=== PATIENT | female | born 1965 | race Caucasian/White ===

== ENCOUNTER 2018-07-03 23:22 | Emergency (ER) | payer SELFPAY ==
[2018-07-03] MEDS ORDERED: Sodium Chloride 0.9% 1,000 ML IV ONE (23:54)
[2018-07-04 00:15] LABS: BASO # 0.1 K/uL (0.0-0.2); BASO % 1.1 % (0.0-2.0); EOS # 1.1 K/uL (0.0-0.7); EOS % 17.8 % (0.0-4.0); HEMOGLOBIN 13.2 g/dL (11.0-16.0); LYMPH # 2.3 K/uL (1.0-4.3); LYMPH % 38.3 % (20.0-40.0); MEAN CORPUSCULAR HEMOGLOBIN 30.2 pg (27.0-31.0); MEAN CORPUSCULAR HGB CONC 34.7 g/dL (33.0-37.0); MEAN PLATELET VOLUME 8.6 fL (7.2-11.7); MONO # 0.5 K/uL (0.0-0.8); MONO % 7.8 % (0.0-10.0); NEUT # 2.1 K/uL (1.8-7.0); NRBC % 0.1 % (0.0-2.0); RBC 4.35 Mil/uL (3.80-5.20); RED CELL DISTRIBUTION WIDTH 15.1 % (11.5-14.5)
[2018-07-04 00:22] LABS: ALB/GLOB RATIO 1.1 (1.0-2.1); ALBUMIN 4.2 g/dL (3.5-5.0); CALCIUM 9.8 mg/dl (8.6-10.4)
[2018-07-04 00:34] LABS: TROPONIN I 0.025 ng/mL (0.00-0.120)
[2018-07-04 01:05] LABS: SQUAMOUS EPITHIAL 2 /hpf (0-5); URINE BACTERIA RARE (<OCC); URINE BILIRUBIN NEGATIVE (NEGATIVE); URINE CLARITY Hazy (Clear); URINE COLOR Yellow (YELLOW); URINE GLUCOSE (UA) 1+ mg/dL (Normal); URINE LEUKOCYTE ESTERASE 3+ Leu/uL (Negative); URINE PROTEIN 1+ mg/dL (NEGATIVE); URINE UROBILINOGEN NORMAL mg/dL (0.2-1.0)
[2018-07-04 01:11] LABS: URINE BLOOD 1+ (NEGATIVE)
[2018-07-04] MEDS ORDERED: Tmp-Smz 800 mg-160 mg DS Tab PO STA (01:52)
[2018-07-04] MEDS ORDERED: Tmp-Smz 800 mg-160 mg DS Tab ONE (02:01)
[2018-07-04 02:08] VITALS: BP 147/81; PULSE 84; RESP 18; TEMP 97.8; O2SAT 99
--- NOTE | 2018-07-04 05:06 | C.PDOC ---
History Of Present Illness 52 y/o female presents to the ED complaining of generalized weakness and a mild cough, for the past 1 week. States she also vomited a couple of times. Denies any fever, chest pain, SOB, dizziness, or visual changes. Patient has PMHx of diabetes mellitus, takes PO medications. Time Seen by Provider: 07/03/18 23:50 Chief Complaint (Nursing): GI Problem History Per: Patient History/Exam Limitations: no limitations Onset/Duration Of Symptoms: Days (x7) Current Symptoms Are (Timing): Still Present Past Medical History Reviewed: Historical Data, Nursing Documentation, Vital Signs Vital Signs: Last Vital Signs Temp 97.8 F 07/04/18 02:05 Pulse 84 07/04/18 02:05 Resp 18 07/04/18 02:05 BP 147/81 07/04/18 02:05 Pulse Ox 99 07/04/18 02:05 Family History: States: No Known Family Hx - Social History Hx Alcohol Use: No Hx Substance Use: No Review Of Systems Except As Marked, All Systems Reviewed And Found Negative. Constitutional: Positive for: Weakness (generalized). Negative for: Fever Eyes: Negative for: Vision Change Cardiovascular: Negative for: Chest Pain Respiratory: Positive for: Cough. Negative for: Shortness of Breath Gastrointestinal: Negative for: Nausea, Vomiting, Diarrhea Neurological: Negative for: Dizziness Physical Exam - Physical Exam Appears: Non-toxic, No Acute Distress, Other (Thin) Skin: Normal Color, Warm, Dry Head: Atraumatic, Normacephalic Eye(s): bilateral: Normal Inspection, PERRL, EOMI Neck: Normal ROM, Supple Chest: Symmetrical Cardiovascular: Rhythm Regular, No Murmur Respiratory: Normal Breath Sounds, No Rales, No Rhonchi, No Wheezing Gastrointestinal/Abdominal: Soft, No Tenderness, No Distention Extremity: Normal ROM, No Calf Tenderness, No Swelling Neurological/Psych: Oriented x3, Normal Speech ED Course And Treatment - Laboratory Results Result Diagrams: 07/04/18 00:05 07/04/18 00:05 ECG: Interpreted By Me, Viewed By Me ECG Rhythm: Sinus Rhythm Interpretation Of ECst degree AV block, Left axis deviation Rate From EC (bpm) O2 Sat by Pulse Oximetry: 99 (RA) Pulse Ox Interpretation: Normal Medical Decision Making Medical Decision Making: Impression: Cough, generalized weakness Initial Plan: --EKG --Labs --Chest x-ray --IV fluids --Pepcid 20 mg IVP --Zofran 4 mg IVP --Reassess Labs reviewed, urine indicative of UTI. On re-evaluation patient reports improvement in symptoms after fluids and meds given. Patient given initial dose of Bactrim in the ED. Will discharge home on antibiotics, advised patient to follow up with the clinic for further evaluation. Disposition Counseled Patient/Family Regarding: Studies Performed, Diagnosis, Need For Followup, Rx Given - Disposition Referrals: [facility] [Outside] [facility] [Outside] Disposition: HOME/ ROUTINE Disposition Time: 01:10 Condition: GOOD Additional Instructions: DUGLAS WALL, thank you for letting us take care of you today. The emergency medical care you received today was directed at your acute symptoms. If you were prescribed any medication, please fill it and take as directed. It may take several days for your symptoms to resolve. Return to the Emergency Department if your symptoms worsen, do not improve, or if you have any other problems. Please contact your doctor or call one of the physicians/clinics you have been referred to that are listed on the Patient Visit Information form that is included in your discharge packet. Bring any paperwork you were given at discharge with you along with any medications you are taking to your follow up visit. Our treatment cannot replace ongoing medical care by a primary care provider outside of the emergency department. Thank you for allowing the [facility] team to be part of your care today. Follow up with the clinic this week for re-evaluation and further management. Prescriptions: Ibuprofen [Motrin] 600 mg PO Q6 PRN #20 tab PRN Reason: Pain, Moderate (4-7) Sulfamethoxazole/Trimethoprim [Bactrim DS 800 mg-160 mg] 1 tab PO BID #10 tab Instructions: Urinary Tract Infection, Adult (DC) Forms: [employer] (Syriac) - POA Present On Arrival: None - Clinical Impression Clinical Impression: UTI (urinary tract infection) - Scribe Statement The provider has reviewed the documentation as recorded by the Scribe (Shayla Mcnair) Provider Attestation: All medical record entries made by the Scribe were at my direction and personally dictated by me. I have reviewed the chart and agree that the record accurately reflects my personal performance of the history, physical exam, m edical decision making, and the department course for this patient. I have also personally directed, reviewed, and agree with the discharge instructions and disposition.
--- NOTE | 2018-07-04 08:53 | RAD ---
Chest x-ray single frontal view HISTORY: Infiltrate. COMPARISON: None available. Findings: No focal infiltrate or effusion. Mild venous congestion. Right hilar prominence. Heart size within limits. Degenerative changes in the osseous structures. Impression: No focal infiltrate or effusion. Mild venous congestion. Right hilar prominence. Heart size within limits. Degenerative changes in the osseous structures.
--- NOTE | 2018-07-05 13:28 | CARD ---
APPROVED REPORT Date of service: 07/04/2018 EKG Measurement Heart [id number] <Conclusion> Sinus rhythm with 1st degree AV block Left axis deviation Left ventricular hypertrophy with repolarization abnormality Prolonged QT Abnormal ECG
== END 2018-07-04 02:09 | disposition home or self-care (01) ==
LOC: EDBD → C.ER 23:22
DX: N39.0 Urinary tract infection, site not specified (principal)
CPT/HCPCS: 71045; 80053; 81001; 82948; 83690; 84484; 85025; 93005; 96374; 96375; 99285; J2405; J7030

== ENCOUNTER 2018-07-07 13:10 | Inpatient (IN) | payer MEDICAID, OTHER ==
[2018-07-07] MEDS ORDERED: (Novolin R) Insulin Human Regular 100 units/ml vial IVP STA (14:22)
[2018-07-07] MEDS ORDERED: Sodium Chloride 0.9% 1,000 ML IV ONE ×3 (14:22→15:53)
[2018-07-07] MEDS ORDERED: Albuterol-Ipratrop 3 mg / 0.5 (3 ml) UD INH STA ×2 (14:23→15:54)
[2018-07-07] MEDS ORDERED: Albuterol-Ipratrop 3 mg / 0.5 (3 ml) UD ONE ×2 (14:34→16:13)
--- NOTE | 2018-07-07 14:37 | RAD ---
Date of service: 07/07/2018 PROCEDURE: CHEST RADIOGRAPH, 1 VIEW HISTORY: Diabetic, cough COMPARISON: None available. FINDINGS: LUNGS: The lungs are well inflated and clear. PLEURA: No pneumothorax or pleural fluid seen. CARDIOVASCULAR: Normal. OSSEOUS STRUCTURES: No significant abnormalities. VISUALIZED UPPER ABDOMEN: Normal. OTHER FINDINGS: None. IMPRESSION: No active pulmonary disease.
[2018-07-07 14:44] LABS: BASO % 0.8 % (0.0-2.0); EOS # 1.1 K/uL (0.0-0.7); EOS % 20.4 % (0.0-4.0); HEMOGLOBIN 11.6 g/dL (11.0-16.0); LYMPH # 0.9 K/uL (1.0-4.3); LYMPH % 17.1 % (20.0-40.0); MEAN CELL VOLUME 87.8 fL (81.0-99.0); MEAN CORPUSCULAR HEMOGLOBIN 29.6 pg (27.0-31.0); MEAN CORPUSCULAR HGB CONC 33.7 g/dL (33.0-37.0); MEAN PLATELET VOLUME 8.7 fL (7.2-11.7); MONO # 0.6 K/uL (0.0-0.8); MONO % 11.2 % (0.0-10.0); NEUT # 2.7 K/uL (1.8-7.0); NEUT % 50.5 % (50.0-75.0); NRBC % 0.1 % (0.0-2.0); PLATELET COUNT 197 K/uL (130-400); RED CELL DISTRIBUTION WIDTH 15.2 % (11.5-14.5); WHITE BLOOD COUNT 5.3 K/uL (4.8-10.8)
[2018-07-07 14:59] LABS: HCG,QUALITATIVE URINE NEGATIVE (NEGATIVE)
[2018-07-07 15:02] LABS: SQUAMOUS EPITHIAL 11 /hpf (0-5); URINE BACTERIA RARE (<OCC); URINE BILIRUBIN NEGATIVE (NEGATIVE); URINE BLOOD 2+ (NEGATIVE); URINE CLARITY Hazy (Clear); URINE COLOR Yellow (YELLOW); URINE GLUCOSE (UA) 1+ mg/dL (Normal); URINE HYALINE CAST >20 /lpf (0-2); URINE LEUKOCYTE ESTERASE 3+ Leu/uL (Negative); URINE PROTEIN 2+ mg/dL (NEGATIVE); URINE UROBILINOGEN NORMAL mg/dL (0.2-1.0); WBC CLUMPS MOD /hpf
[2018-07-07] MEDS ORDERED: cefTRIAXone IV 1 gm in Dextros 50 ML IV ONE (15:06)
[2018-07-07 15:11] LABS: ANISOCYTOSIS SLIGHT; EOSINOPHIL 11 % (0-4); HYPOCHROMIC SLIGHT; LYMPHOCYTE 26 % (20-40); MONOCYTE 4 % (0-10); NEUTROPHIL 59 % (50-75); OVALOCYTES SLIGHT; PLATELET ESTIMATE NORMAL (NORMAL); POLYCHROMIC SLIGHT; TOTAL CELLS COUNTED 100
[2018-07-07 15:16] LABS: ALB/GLOB RATIO 1.1 (1.0-2.1); ALBUMIN 3.7 g/dL (3.5-5.0); CALCIUM 9.2 mg/dl (8.6-10.4)
[2018-07-07] MEDS ORDERED: cefTRIAXone 1 gm 1 GM/100 ML BAG IVPB ONE (15:22)
--- NOTE | 2018-07-07 15:52 | C.PDOC ---
History Of Present Illness 52 y/o female presents to ED c/o persistent non-productive cough. Pt also complains of not being able to tolerate any PO intake, reports multiple episode of vomiting. Pt was seen here 4 days ago for similar symptoms without improveme nt. Denies fever, diarrhea, or other complaints. Time Seen by Provider: 07/07/18 14:11 Chief Complaint (Nursing): GI Problem History Per: Patient History/Exam Limitations: no limitations Past Medical History Reviewed: Historical Data, Nursing Documentation, Vital Signs Vital Signs: Last Vital Signs Temp 98 F 07/07/18 15:45 Pulse 100 H 07/07/18 15:45 Resp 18 07/07/18 15:45 BP 108/52 L 07/07/18 15:45 Pulse Ox 98 07/07/18 15:45 - Medical History PMH: Hypercholesterolemia Family History: States: Unknown Family Hx - Social History Hx Alcohol Use: No Hx Substance Use: No Review Of Systems Except As Marked, All Systems Reviewed And Found Negative. Constitutional: Negative for: Fever, Chills Cardiovascular: Negative for: Chest Pain Respiratory: Positive for: Cough. Negative for: Shortness of Breath Gastrointestinal: Positive for: Nausea, Vomiting. Negative for: Abdominal Pain, Diarrhea Genitourinary: Negative for: Dysuria, Frequency Musculoskeletal: Negative for: Back Pain Physical Exam - Physical Exam Appears: Non-toxic, Chronically Ill, Other (appears older than stated age; in moderate distress) Skin: Warm, Dry, Other (skin tenting) Head: Atraumatic, Normacephalic Eye(s): bilateral: Normal Inspection Oral Mucosa: Dry Neck: Normal ROM, Supple Cardiovascular: Rhythm Regular Respiratory: No Accessory Muscle Use, No Rales, Rhonchi, Wheezing (scattered) Gastrointestinal/Abdominal: Soft, No Tenderness, No Guarding, No Rebound Back: No CVA Tenderness Extremity: Normal ROM Neurological/Psych: Oriented x3, Normal Speech ED Course And Treatment - Laboratory Results Result Diagrams: 07/07/18 14:38 07/07/18 14:38 Lab Interpretation: Abnormal (creat increased from 1.2 on prior visit, K+ wnl, flu swab neg. UA 287 WBC's) Urine POC: Negative ECG: Interpreted By Me ECG Rhythm: Sinus Tachycardia ECG Interpretation: No Acute Changes Rate From EC (bpm) O2 Sat by Pulse Oximetry: 98 (RA) Pulse Ox Interpretation: Normal - Radiology CXR: Interpreted by Me CXR Interpretation: Yes: No Acute Disease, Other (+ airway dz) Reevaluation Time: 15:50 Reassessment Condition: Improved - Physician Consult Information Outcome Of Conversation: 1550: dw Dr. Mosher, Hospitalist covering Self-Pay pt's, ok to admit. Medical Decision Making Medical Decision Making: viral syndrome, flu neg airway dz, neb/steroids, no pna UTI, ? pyelo Rocephin UC/BC sent NIMISHA: creat 3.5 from 1.2 few days ago prob pre-renal agressive hydration Disposition Doctor Will See Patient In The: Hospital Counseled Patient/Family Regarding: Studies Performed, Diagnosis - Disposition Disposition: HOSPITALIZED Disposition Time: 15:52 Condition: GOOD - Clinical Impression Clinical Impression: UTI (urinary tract infection), Reactive airway disease, Acute renal failure, Dehydration - Scribe Statement The provider has reviewed the documentation as recorded by the Scribe KP All medical record entries made by the Scribe were at my direction and pe rsonally dictated by me. I have reviewed the chart and agree that the record accurately reflects my personal performance of the history, physical exam, medical decision making, and the department course for this patient. I have also personally directed, reviewed, and agree with the discharge instructions and disposition.
--- NOTE | 2018-07-07 17:19 | CP.PCM.HP ---
<Mary Alfred - Last Filed: 07/07/18 18:57> History of Present Illness - History of Present Illness History of Present Illness: Patient seen and examined at approximately 16:11 PM. Patient is a FULL CODE Status at the time. Patient's emergency contact is her , Andrew Chowdhury. He can be reached at [phone] CC: Cough with Malaise HPI: 52 year old female with past medical history significant for Diabetes Mellitus presents with complaints of productive cough and generalized malaise for the past 2-3 weeks. Patient presented with her who was able to provide most of the history. Per , patient has not been her usual self. She has been coughing repeatedly to the point of which she vomits. states that she has been vomiting food contents. Patient has been attempting to eat and drink but then vomits up the contents. Patient came to the ED three days earlier with similar complaints to be evaluated. At the time, a UA was performed which was positive for UTI and thus patient was placed on Bactrim therapy. Patient was asked to follow up in the clinic or return to the ED, if symptoms returned. Patient states that she has been taking the Bactrim. She admits to a headache, sweats, fatigue. She denies recent travel within the past year or recent sick contacts. She denies palpitations or dyspnea, dysuria, urinary frequency or urgency, diarrhea or constipation. PMHx- as noted above PSHx- denies Fam Hx- Reviewed and patient denies at this time Medications- Bactrim Social Hx- Denies smoking ( is a smoker), illicit drug use or alcohol intake Allergies-NKDA Present on Admission - Present on Admission Any Indicators Present on Admission: No Review of Systems - Constitutional Constitutional: Excessive Sweating, Headache, Malaise. absent: Anorexia - EENT Eyes: absent: Blurred Vision, Change in Vision Ears: absent: Ear Discharge, Ear Pain Nose/Mouth/Throat: Dry Mouth. absent: Nasal Congestion, Nasal Discharge - Cardiovascular Cardiovascular: absent: Chest Pain, Chest Pain at Rest - Respiratory Respiratory: Cough. absent: Wheezing - Gastrointestinal Gastrointestinal: Nausea, Vomiting. absent: Abdominal Pain - Genitourinary Genitourinary: absent: Difficulty Urinating, Dysuria, Flank Pain - Musculoskeletal Musculoskeletal: absent: Abnormal Gait, Back Pain - Integumentary Integumentary: Dry Skin. absent: Sores, Swelling - Neurological Neurological: absent: Memory Loss, Sensory Deficit, Syncope Past Patient History - Past Social History Smoking Status: Never Smoked Alcohol: None Drugs: Denies Home Situation {Lives}: With Family - CARDIAC Hx Hypercholesterolemia: Yes - PSYCHIATRIC Hx Substance Use: No - SURGICAL HISTORY Other/Comment: removal of ovaries - ANESTHESIA Hx Anesthesia: Yes Hx Anesthesia Reactions: No Hx Malignant Hyperthermia: No Meds Allergies/Adverse Reactions: Allergies Allergy/AdvReac Type Severity Reaction Status Date / Time No Known Allergies Allergy Unverified 07/03/18 23:36 Physical Exam - Constitutional Appears: Non-toxic, No Acute Distress Additional comments: ill-appearing - Head Exam Head Exam: ATRAUMATIC, NORMAL INSPECTION, NORMOCEPHALIC Additional comments: thinning hair - Eye Exam Eye Exam: EOMI, Normal appearance, PERRL Pupil Exam: NORMAL ACCOMODATION - ENT Exam ENT Exam: Mucous Membranes Moist - Neck Exam Neck exam: Positive for: Normal Inspection - Respiratory Exam Respiratory Exam: Decreased Breath Sounds, Rhonchi. absent: Clear to Auscultation Bilateral, Wheezes - Cardiovascular Exam Cardiovascular Exam: +S1, +S2 - GI/Abdominal Exam GI & Abdominal Exam: Normal Bowel Sounds, Soft. absent: Distended, Tenderness - Extremities Exam Extremities exam: Positive for: full ROM. Negative for: calf tenderness, joint swelling, pedal edema - Back Exam Back exam: FULL ROM - Neurological Exam Neurological exam: Alert, CN II-XII Intact, Oriented x3 - Psychiatric Exam Psychiatric exam: Flat Affect - Skin Skin Exam: Dry, Warm Additional comments: decreased skin turgor Results - Vital Signs Recent Vital Signs: Last Vital Signs Temp 98 F 07/07/18 15:45 Pulse 100 H 07/07/18 15:45 Resp 18 07/07/18 15:45 BP 108/52 L 07/07/18 15:45 Pulse Ox 98 07/07/18 15:57 - Labs Result Diagrams: 07/07/18 14:38 07/07/18 14:38 Labs: Laboratory Results - last 24 hr 07/07/18 07/07/18 07/07/18 13:46 14:37 14:38 WBC 5.3 RBC 3.90 Hgb 11.6 Hct 34.3 MCV 87.8 MCH 29.6 MCHC 33.7 RDW 15.2 H Plt Count 197 MPV 8.7 Neut % (Auto) 50.5 Lymph % (Auto) 17.1 L Cook % (Auto) 11.2 H Eos % (Auto) 20.4 H Baso % (Auto) 0.8 Neut # (Auto) 2.7 Lymph # (Auto) 0.9 L Cook # (Auto) 0.6 Eos # (Auto) 1.1 H Baso # (Auto) 0.0 Neutrophils % (Manual) 59 Lymphocytes % (Manual) 26 Monocytes % (Manual) 4 Eosinophils % (Manual) 11 H Platelet Estimate Normal Polychromasia Slight Hypochromasia (manual) Slight Anisocytosis (manual) Slight Ovalocytes Slight Sodium Potassium Chloride Carbon Dioxide Anion Gap BUN Creatinine Est GFR ( Amer) Est GFR (Non-Af Amer) POC Glucose (mg/dL) 110 Random Glucose Calcium Total Bilirubin AST ALT Alkaline Phosphatase Total Protein Albumin Globulin Albumin/Globulin Ratio Urine Color Urine Clarity Urine pH Ur Specific [place] Urine Protein Urine Glucose (UA) Urine Ketones Urine Blood Urine Nitrate Urine Bilirubin Urine Urobilinogen Ur Leukocyte Esterase Urine WBC (Auto) Urine RBC (Auto) Urine WBC Clumps (Auto) Ur Squamous Epith Cells Urine Bacteria Hyaline Casts Urine HCG, Qual Influenza Typ A,B (EIA) Negative for flu a/b 07/07/18 07/07/18 14:38 14:49 WBC RBC Hgb Hct MCV MCH MCHC RDW Plt Count MPV Neut % (Auto) Lymph % (Auto) Cook % (Auto) Eos % (Auto) Baso % (Auto) Neut # (Auto) Lymph # (Auto) Cook # (Auto) Eos # (Auto) Baso # (Auto) Neutrophils % (Manual) Lymphocytes % (Manual) Monocytes % (Manual) Eosinophils % (Manual) Platelet Estimate Polychromasia Hypochromasia (manual) Anisocytosis (manual) Ovalocytes Sodium 140 Potassium 5.2 Chloride 106 Carbon Dioxide 17 L Anion Gap 23 H BUN 36 H Creatinine 3.7 H Est GFR ( Amer) 16 Est GFR (Non-Af Amer) 13 POC Glucose (mg/dL) Random Glucose 106 H Calcium 9.2 Total Bilirubin 0.6 AST 31 ALT 34 Alkaline Phosphatase 150 H Total Protein 7.2 Albumin 3.7 Globulin 3.4 Albumin/Globulin Ratio 1.1 Urine Color Yellow Urine Clarity Hazy Urine pH 5.0 Ur Specific [place] 1.018 Urine Protein 2+ H Urine Glucose (UA) 1+ Urine Ketones Negative Urine Blood 2+ H Urine Nitrate Negative Urine Bilirubin Negative Urine Urobilinogen Normal Ur Leukocyte Esterase 3+ H Urine WBC (Auto) 287 H Urine RBC (Auto) 37 H Urine WBC Clumps (Auto) Mod H Ur Squamous Epith Cells 11 H Urine Bacteria Rare Hyaline Casts >20 H Urine HCG, Qual Negative Influenza Typ A,B (EIA) Assessment & Plan (1) UTI (urinary tract infection) Assessment and Plan: Afebrile. No leukocytosis. Not currently meeting sepsis criteria- F/U Lactate Previously on Bactrim therapy. Discontinue now. Will start on Rocephin. (Started 07/07) On Bacid. (Started 07/07) F/U Cultures NS @ 100 mls/hr Status: Acute (2) Dyspnea Assessment and Plan: Dyspnea with productive cough- unclear dark colored matter/ vomitus Duonebs PRN CXR- Read as increased pulm vascular markings- however considerations for infiltrates or consolidations. F/U F/U Chest CT F/U Legionella, Mycoplasma, AFB, Pertussis cultures On empiric therapy for pneumonia coverage due to lung CXR- Azithromycin /Ceftriaxone (started 07/07) Unclear gastric vomitus- F/U gastric occult. If positive for blood- GI consult to be placed. Influenza A and B negative Status: Acute (3) NEHA (acute kidney injury) Assessment and Plan: Likely secondary to dehydration from repeated emesis Bactrim also contributory on NS @ 100 mls/hr Status: Acute (4) Diabetes mellitus Assessment and Plan: ISS Low dose Accuchecks ACHS F/U Hgb A1c Status: Chronic (5) Prophylactic measure Assessment and Plan: PPI 40 mg IV SCDs Status: Acute <Pravin Garcia - Last Filed: 07/13/18 18:13> Results - Vital Signs Recent Vital Signs: patient was seen on admission note signing was delayed thus today's date vitals and labs are being pulled in automatically and can not be removed. Patient was seen and examined on admission and only those labs and vitals are supposed to be in this document. Last Vital Signs Temp 100.8 F H 07/13/18 12:00 Pulse 96 H 07/13/18 14:07 Resp 26 H 07/13/18 14:07 BP 97/61 L 07/13/18 14:07 Pulse Ox 96 07/13/18 14:07 - Labs Result Diagrams: 07/13/18 06:30 07/13/18 15:57 Labs: patient was seen on admission note signing was delayed thus today's date vitals and labs are being pulled in automatically and can not be removed. Patient was seen and examined on admission and only those labs and vitals are supposed to be in this document. Laboratory Results - last 24 hr 07/08/18 07/12/18 07/12/18 23:06 14:46 17:53 WBC RBC Hgb Hct MCV MCH MCHC RDW Plt Count MPV Neut % (Auto) Lymph % (Auto) Cook % (Auto) Eos % (Auto) Baso % (Auto) Neut # (Auto) Lymph # (Auto) Cook # (Auto) Eos # (Auto) Baso # (Auto) PT INR APTT 58 H D Puncture Site pCO2 pO2 HCO3 ABG pH ABG Total CO2 ABG O2 Saturation ABG Base Excess ABG Hemoglobin ABG Carboxyhemoglobin POC ABG HHb (Measured) ABG Methemoglobin Kevon Test ABG Potassium A-a O2 Difference Respiratory Index Hgb O2 Saturation Glucose Lactate Vent Mode Mechanical Rate FiO2 Tidal Volume PEEP Pressure Support Crit Value Called To Crit Value Called By Crit Value Read Back Blood Gas Notified Time Sodium Potassium Chloride Carbon Dioxide Anion Gap BUN Creatinine Est GFR ( Amer) Est GFR (Non-Af Amer) POC Glucose (mg/dL) 326 H Random Glucose Calcium Phosphorus Magnesium Total Bilirubin AST ALT Alkaline Phosphatase Total Protein Albumin Globulin Albumin/Globulin Ratio Thyroxine (T4) TSH 3rd Generation Arterial Blood Potassium ANCA Screen Negative c-ANCA Titer TNP Proteinase 3 (PR3) <1.0 p-ANCA Titer TNP Atypical p-ANCA Titer TNP Myeloperoxidase Ab <1.0 07/12/18 07/12/18 07/13/18 21:59 23:43 04:30 WBC RBC Hgb Hct MCV MCH MCHC RDW Plt Count MPV Neut % (Auto) Lymph % (Auto) Cook % (Auto) Eos % (Auto) Baso % (Auto) Neut # (Auto) Lymph # (Auto) Cook # (Auto) Eos # (Auto) Baso # (Auto) PT INR APTT 55 H Puncture Site Rr pCO2 32 L pO2 94 HCO3 34.8 H ABG pH 7.64 H* ABG Total CO2 35.4 H ABG O2 Saturation 98.8 H ABG Base Excess 12.6 H ABG Hemoglobin 7.9 L ABG Carboxyhemoglobin 2.2 H POC ABG HHb (Measured) 1.2 ABG Methemoglobin 1.3 Kevon Test Pos ABG Potassium A-a O2 Difference 294.0 Respiratory Index 3.1 Hgb O2 Saturation 95.3 Glucose Lactate Vent Mode Prvc Mechanical Rate 12 FiO2 60.0 Tidal Volume 450 PEEP 5 Pressure Support Crit Value Called To Dr villanueva Crit Value Called By Silvano telles/rt Crit Value Read Back Y Blood Gas Notified Time 500 Sodium Potassium Chloride Carbon Dioxide Anion Gap BUN Creatinine Est GFR ( Amer) Est GFR (Non-Af Amer) POC Glucose (mg/dL) 285 H Random Glucose Calcium Phosphorus Magnesium Total Bilirubin AST ALT Alkaline Phosphatase Total Protein Albumin Globulin Albumin/Globulin Ratio Thyroxine (T4) TSH 3rd Generation Arterial Blood Potassium ANCA Screen c-ANCA Titer Proteinase 3 (PR3) p-ANCA Titer Atypical p-ANCA Titer Myeloperoxidase Ab 07/13/18 07/13/18 07/13/18 05:33 06:30 06:30 WBC 11.0 H D RBC 2.95 L Hgb 8.8 L Hct 26.2 L MCV 88.8 MCH 30.0 MCHC 33.8 RDW 15.3 H Plt Count 143 MPV 8.9 Neut % (Auto) 68.0 Lymph % (Auto) 23.7 Cook % (Auto) 5.9 Eos % (Auto) 2.1 Baso % (Auto) 0.3 Neut # (Auto) 7.5 H Lymph # (Auto) 2.6 Cook # (Auto) 0.6 Eos # (Auto) 0.2 Baso # (Auto) 0.0 PT INR APTT Puncture Site pCO2 pO2 HCO3 ABG pH ABG Total CO2 ABG O2 Saturation ABG Base Excess ABG Hemoglobin ABG Carboxyhemoglobin POC ABG HHb (Measured) ABG Methemoglobin Kevon Test ABG Potassium A-a O2 Difference Respiratory Index Hgb O2 Saturation Glucose Lactate Vent Mode Mechanical Rate FiO2 Tidal Volume PEEP Pressure Support Crit Value Called To Crit Value Called By Crit Value Read Back Blood Gas Notified Time Sodium 147 Potassium 2.8 L Chloride 105 Carbon Dioxide 33 H Anion Gap 12 BUN 43 H Creatinine 1.8 H Est GFR ( Amer) 36 Est GFR (Non-Af Amer) 30 POC Glucose (mg/dL) 124 H Random Glucose 108 H Calcium 7.5 L Phosphorus 1.2 L Magnesium 1.5 L Total Bilirubin 0.8 AST 78 H D ALT 175 H D Alkaline Phosphatase 121 Total Protein 4.8 L Albumin 2.3 L Globulin 2.6 Albumin/Globulin Ratio 0.9 L Thyroxine (T4) TSH 3rd Generation < 0.02 L Arterial Blood Potassium ANCA Screen c-ANCA Titer Proteinase 3 (PR3) p-ANCA Titer Atypical p-ANCA Titer Myeloperoxidase Ab 07/13/18 07/13/18 07/13/18 06:30 06:30 10:48 WBC RBC Hgb Hct MCV MCH MCHC RDW Plt Count MPV Neut % (Auto) Lymph % (Auto) Cook % (Auto) Eos % (Auto) Baso % (Auto) Neut # (Auto) Lymph # (Auto) Cook # (Auto) Eos # (Auto) Baso # (Auto) PT 16.1 H D INR 1.5 D APTT 57 H Puncture Site pCO2 pO2 HCO3 ABG pH ABG Total CO2 ABG O2 Saturation ABG Base Excess ABG Hemoglobin ABG Carboxyhemoglobin POC ABG HHb (Measured) ABG Methemoglobin Kevon Test ABG Potassium A-a O2 Difference Respiratory Index Hgb O2 Saturation Glucose Lactate Vent Mode Mechanical Rate FiO2 Tidal Volume PEEP Pressure Support Crit Value Called To Crit Value Called By Crit Value Read Back Blood Gas Notified Time Sodium Potassium Chloride Carbon Dioxide Anion Gap BUN Creatinine Est GFR ( Amer) Est GFR (Non-Af Amer) POC Glucose (mg/dL) 178 H Random Glucose Calcium Phosphorus Magnesium Total Bilirubin AST ALT Alkaline Phosphatase Total Protein Albumin Globulin Albumin/Globulin Ratio Thyroxine (T4) 13.0 H TSH 3rd Generation Arterial Blood Potassium ANCA Screen c-ANCA Titer Proteinase 3 (PR3) p-ANCA Titer Atypical p-ANCA Titer Myeloperoxidase Ab 07/13/18 07/13/18 11:10 11:45 WBC RBC Hgb Hct MCV MCH MCHC RDW Plt Count MPV Neut % (Auto) Lymph % (Auto) Cook % (Auto) Eos % (Auto) Baso % (Auto) Neut # (Auto) Lymph # (Auto) Cook # (Auto) Eos # (Auto) Baso # (Auto) PT INR APTT Puncture Site Rra pCO2 37 pO2 74 L HCO3 31.6 H ABG pH 7.54 H ABG Total CO2 32.7 H ABG O2 Saturation 97.4 ABG Base Excess 8.6 H ABG Hemoglobin ABG Carboxyhemoglobin POC ABG HHb (Measured) ABG Methemoglobin Kevon Test Pos ABG Potassium 3.0 L A-a O2 Difference 308.0 Respiratory Index 4.2 Hgb O2 Saturation Glucose 178 H Lactate 1.6 Vent Mode Cpap Mechanical Rate FiO2 60.0 Tidal Volume PEEP 5 Pressure Support 15 Crit Value Called To Crit Value Called By Crit Value Read Back Blood Gas Notified Time Sodium 145.0 Potassium Chloride 115.0 H Carbon Dioxide Anion Gap BUN Creatinine Est GFR ( Amer) Est GFR (Non-Af Amer) POC Glucose (mg/dL) 157 H Random Glucose Calcium Phosphorus Magnesium Total Bilirubin AST ALT Alkaline Phosphatase Total Protein Albumin Globulin Albumin/Globulin Ratio Thyroxine (T4) TSH 3rd Generation Arterial Blood Potassium 3.0 L ANCA Screen c-ANCA Titer Proteinase 3 (PR3) p-ANCA Titer Atypical p-ANCA Titer Myeloperoxidase Ab Assessment & Plan - Assessment and Plan (Free Text) Assessment: Acute renal failure possible pneumonia check ct chest UTI bactrim associated arf ATN coffee ground emesis / billious emesis GI bleeding check gastrocult
[2018-07-07] MEDS ORDERED: Dextrose 50% SYRINGE Inj (50 ml) IV PRN (18:19)
[2018-07-07] MEDS ORDERED: Glucagon Recombinant 1 mg Inj IM PRN (18:19)
[2018-07-07] MEDS: Lactobacillus Acidophilus 500 MU Cap PO SCH (18:30)
[2018-07-07] MEDS ORDERED: Albuterol-Ipratrop 3 mg / 0.5 (3 ml) UD INH PRN (18:35)
[2018-07-07] MEDS ORDERED: Sodium Chloride 0.9% 1,000 ML IV SCH (18:45)
[2018-07-07] MEDS ORDERED: guaiFENesin-Codeine 100-10mg/5ml Syrup (10ml) UD PO PRN (18:49)
--- NOTE | 2018-07-07 18:59 | CT ---
Date of service: 07/07/2018 PROCEDURE: CT Chest without contrast HISTORY: dyspnea, pulm changes noted COMPARISON: July 07, 2018 single-view chest TECHNIQUE: Contiguous axial images were obtained through the chest without intravenous contrast enhancement. Sagittal and coronal reconstructions were performed. Radiation dose (DLP): 302.40 mGy-cm. This CT exam was performed using one or more of the following dose reduction techniques: Automated exposure control, adjustment of the mA and/or kV according to patient size, and/or use of iterative reconstruction technique. FINDINGS: LUNGS: No discrete infiltrates identified. Interlobular septal thickening, increased interstitial markings. MEDIASTINUM: Unremarkable thoracic aorta. No aneurysm. Cardiomegaly. Prominent pulmonary vessels, increased interstitial markings suggestive of interstitial edema. Main pulmonary artery unremarkable. No vascular congestion. No lymphadenopathy. PLEURA: No pleural fluid. No pneumothorax. BONES: No fracture. No destructive lesion. UPPER ABDOMEN: Grossly unremarkable. Incidental finding(s): Simple cyst right kidney. OTHER FINDINGS: None. IMPRESSION: No discrete pulmonary infiltrates no evidence of pleural effusion. Cardiomegaly, likely mild pulmonary vascular congestion.
[2018-07-07 19:21] LABS: VENOUS BLOOD GAS BASE EXCESS -16.1 mmol/L (0.0-2.0); VENOUS BLOOD GAS PCO2 37 mmHg (40-60); VENOUS BLOOD GAS PO2 27 mm/Hg (30-55); VENOUS BLOOD PH 7.13 (7.32-7.43)
[2018-07-07] MEDS ORDERED: guaiFENesin-Codeine 100-10mg/5ml Syrup (10ml) UD ONE (20:16)
[2018-07-07] MEDS ORDERED: (Novolog) Insulin Aspart, Recombinant 100 u/ml 10 ml vial ONE (22:08)
[2018-07-07] MEDS: (Novolog) Insulin Aspart, Recombinant 100 u/ml 10 ml vial SC SCH (22:14)
[2018-07-07] MEDS ORDERED: Sodium Bicarbonate (8.4%) 50 Meq Syringe IVP ONE (22:44)
[2018-07-07] MEDS ORDERED: Sodium Bicarbonate (8.4%) 50 Meq Syringe ONE (23:01)
--- NOTE | 2018-07-07 23:42 | CP.PCM.CON ---
History of Present Illness - History of Present Illness History of Present Illness: 52 y/o female with past medical history of Diabetes Mellitus presents to [facility] with c/p cough and malaise for the past 2-3 weeks. coughing associated with vomiting. (+) vomiting food contents. Seen in ED three days earlier dx with UTI & started on Bactrim. (+) headache, sweats, fatigue.(-) recent travel within the past year or recent sick contacts. She denies palpitations or dyspnea, dysuria, urinary frequency or urgency, diarrhea or constipation. Review of Systems - Review of Systems All systems: reviewed and no additional remarkable complaints except Past Patient History - Tetanus Immunizations Tetanus Immunization: Unknown - Past Medical History & Family History Past Family History: Reviewed and not pertinent - Past Social History Smoking Status: Never Smoked Alcohol: None Drugs: Denies Home Situation {Lives}: With Family - CARDIAC Hx Hypercholesterolemia: Yes - PSYCHIATRIC Hx Substance Use: No - SURGICAL HISTORY Other/Comment: removal of ovaries - ANESTHESIA Hx Anesthesia: Yes Hx Anesthesia Reactions: No Hx Malignant Hyperthermia: No Meds Allergies/Adverse Reactions: Allergies Allergy/AdvReac Type Severity Reaction Status Date / Time No Known Allergies Allergy Unverified 07/03/18 23:36 - Medications Medications: Current Medications Acetaminophen (Tylenol 325mg Tab) 650 mg PO Q6H PRN PRN Reason: Pain, moderate (4-7) Last Admin: 07/07/18 20:24 Dose: 650 mg Albuterol/Ipratropium (Duoneb 3 Mg/0.5 Mg (3 Ml) Ud) 3 ml INH RQ6 PRN PRN Reason: Wheezing Last Admin: 07/07/18 19:29 Dose: 3 ml Dextrose (Dextrose 50% Inj) 0 ml IV STAT PRN; Protocol PRN Reason: Hypoglycemia Protocol Dextrose (Glutose 15) 0 gm PO ONCE PRN; Protocol PRN Reason: Hypoglycemia Protocol Glucagon (Glucagen Diagnostic Kit) 0 mg IM STAT PRN; Protocol PRN Reason: Hypoglycemia Protocol Guaifenesin/Codeine Phosphate (Guaifenesin/Codeine) 5 ml PO Q6H PRN PRN Reason: Cough and congestion Last Admin: 07/07/18 20:24 Dose: 5 ml Ceftriaxone Sodium 1 gm/ (Sodium Chloride) 100 mls @ 100 mls/hr IVPB DAILY MANOLO; Protocol Azithromycin 500 mg/ Sodium (Chloride) 250 mls @ 250 mls/hr IVPB DAILY MANOLO; Protocol Dextrose (Dextrose 5% In Water 1000 Ml) 1,000 mls @ 0 mls/hr IV .Q0M PRN; Protocol PRN Reason: Hypoglycemia Protocol Insulin Aspart (Novolog) 0 unit SC ACHS MANOLO; Protocol Last Admin: 07/07/18 22:14 Dose: 1 unit Lactobacillus Acidophilus (Bacid Acidophilus) 1 cap PO BID MANOLO Last Admin: 07/07/18 18:30 Dose: 1 cap Ondansetron HCl (Zofran Inj) 4 mg IVP Q6H PRN PRN Reason: Nausea/Vomiting Last Admin: 07/07/18 18:30 Dose: 4 mg Pantoprazole Sodium (Protonix Inj) 40 mg IVP BID MANOLO Sodium Bicarbonate (Sodium Bicarbonate Tab) 650 mg PO Q6 MANOLO Sodium Bicarbonate (Sodium Bicarbonate Tab) 1,300 mg PO ONCE ONE Stop: 07/08/18 23:34 Physical Exam - Head Exam Head Exam: ATRAUMATIC, NORMAL INSPECTION, NORMOCEPHALIC - Eye Exam Eye Exam: EOMI - ENT Exam ENT Exam: Mucous Membranes Moist - Respiratory Exam Respiratory Exam: Rales, NORMAL BREATHING PATTERN. absent: Rhonchi, Wheezes - Cardiovascular Exam Cardiovascular Exam: Tachycardia, REGULAR RHYTHM, +S1, +S2 - GI/Abdominal Exam GI & Abdominal Exam: Normal Bowel Sounds, Soft. absent: Guarding, Rebound, Rigid - Skin Skin Exam: Dry Results - Vital Signs Recent Vital Signs: Last Vital Signs Temp 98 F 07/07/18 23:06 Pulse 126 H 07/07/18 23:15 Resp 18 07/07/18 23:06 BP 106/60 07/07/18 23:06 Pulse Ox 98 07/07/18 23:06 - Labs Result Diagrams: 07/08/18 06:21 07/08/18 15:35 Labs: Laboratory Results - last 24 hr 07/07/18 07/07/18 07/07/18 13:46 14:37 14:38 WBC 5.3 RBC 3.90 Hgb 11.6 Hct 34.3 MCV 87.8 MCH 29.6 MCHC 33.7 RDW 15.2 H Plt Count 197 MPV 8.7 Neut % (Auto) 50.5 Lymph % (Auto) 17.1 L [place] % (Auto) 11.2 H Eos % (Auto) 20.4 H Baso % (Auto) 0.8 Neut # (Auto) 2.7 Lymph # (Auto) 0.9 L [place] # (Auto) 0.6 Eos # (Auto) 1.1 H Baso # (Auto) 0.0 Neutrophils % (Manual) 59 Lymphocytes % (Manual) 26 Monocytes % (Manual) 4 Eosinophils % (Manual) 11 H Platelet Estimate Normal Polychromasia Slight Hypochromasia (manual) Slight Anisocytosis (manual) Slight Ovalocytes Slight pO2 VBG pH VBG pCO2 VBG HCO3 VBG Total CO2 VBG O2 Sat (Calc) VBG Base Excess VBG Potassium Glucose Lactate Crit Value Called To Crit Value Called By Crit Value Read Back Blood Gas Notified Time Sodium Potassium Chloride Carbon Dioxide Anion Gap BUN Creatinine Est GFR ( Amer) Est GFR (Non-Af Amer) POC Glucose (mg/dL) 110 Random Glucose Calcium Total Bilirubin AST ALT Alkaline Phosphatase Total Protein Albumin Globulin Albumin/Globulin Ratio Procalcitonin Venous Blood Potassium Urine Color Urine Clarity Urine pH Ur Specific Ajo Urine Protein Urine Glucose (UA) Urine Ketones Urine Blood Urine Nitrate Urine Bilirubin Urine Urobilinogen Ur Leukocyte Esterase Urine WBC (Auto) Urine RBC (Auto) Urine WBC Clumps (Auto) Ur Squamous Epith Cells Urine Bacteria Hyaline Casts Urine HCG, Qual Influenza Typ A,B (EIA) Negative for flu a/b Ur L.pneumophila Ag Mycoplasma pneumon IgM 07/07/18 07/07/18 07/07/18 14:38 14:49 19:15 WBC RBC Hgb Hct MCV MCH MCHC RDW Plt Count MPV Neut % (Auto) Lymph % (Auto) [place] % (Auto) Eos % (Auto) Baso % (Auto) Neut # (Auto) Lymph # (Auto) [place] # (Auto) Eos # (Auto) Baso # (Auto) Neutrophils % (Manual) Lymphocytes % (Manual) Monocytes % (Manual) Eosinophils % (Manual) Platelet Estimate Polychromasia Hypochromasia (manual) Anisocytosis (manual) Ovalocytes pO2 VBG pH VBG pCO2 VBG HCO3 VBG Total CO2 VBG O2 Sat (Calc) VBG Base Excess VBG Potassium Glucose Lactate Crit Value Called To Crit Value Called By Crit Value Read Back Blood Gas Notified Time Sodium 140 Potassium 5.2 Chloride 106 Carbon Dioxide 17 L Anion Gap 23 H BUN 36 H Creatinine 3.7 H Est GFR ( Amer) 16 Est GFR (Non-Af Amer) 13 POC Glucose (mg/dL) Random Glucose 106 H Calcium 9.2 Total Bilirubin 0.6 AST 31 ALT 34 Alkaline Phosphatase 150 H Total Protein 7.2 Albumin 3.7 Globulin 3.4 Albumin/Globulin Ratio 1.1 Procalcitonin Venous Blood Potassium Urine Color Yellow Urine Clarity Hazy Urine pH 5.0 Ur Specific [place]jo 1.018 Urine Protein 2+ H Urine Glucose (UA) 1+ Urine Ketones Negative Urine Blood 2+ H Urine Nitrate Negative Urine Bilirubin Negative Urine Urobilinogen Normal Ur Leukocyte Esterase 3+ H Urine WBC (Auto) 287 H Urine RBC (Auto) 37 H Urine WBC Clumps (Auto) Mod H Ur Squamous Epith Cells 11 H Urine Bacteria Rare Hyaline Casts >20 H Urine HCG, Qual Negative Influenza Typ A,B (EIA) Ur L.pneumophila Ag Mycoplasma pneumon IgM Negative 07/07/18 07/07/18 07/07/18 19:15 19:15 20:32 WBC RBC Hgb Hct MCV MCH MCHC RDW Plt Count MPV Neut % (Auto) Lymph % (Auto) [place] % (Auto) Eos % (Auto) Baso % (Auto) Neut # (Auto) Lymph # (Auto) [place] # (Auto) Eos # (Auto) Baso # (Auto) Neutrophils % (Manual) Lymphocytes % (Manual) Monocytes % (Manual) Eosinophils % (Manual) Platelet Estimate Polychromasia Hypochromasia (manual) Anisocytosis (manual) Ovalocytes pO2 27 L VBG pH 7.13 L* VBG pCO2 37 L VBG HCO3 10.5 VBG Total CO2 13.4 L VBG O2 Sat (Calc) 53.0 VBG Base Excess -16.1 L VBG Potassium 4.0 Glucose 124 H Lactate 2.0 Crit Value Called To Vidhi pike do Crit Value Called By Aleshia rt Crit Value Read Back Y Blood Gas Notified Time 1919 Sodium 143.0 Potassium Chloride 120.0 H Carbon Dioxide Anion Gap BUN Creatinine Est GFR ( Amer) Est GFR (Non-Af Amer) POC Glucose (mg/dL) 184 H Random Glucose Calcium Total Bilirubin AST ALT Alkaline Phosphatase Total Protein Albumin Globulin Albumin/Globulin Ratio Procalcitonin 0.14 L Venous Blood Potassium 4.0 Urine Color Urine Clarity Urine pH Ur Specific Ajo Urine Protein Urine Glucose (UA) Urine Ketones Urine Blood Urine Nitrate Urine Bilirubin Urine Urobilinogen Ur Leukocyte Esterase Urine WBC (Auto) Urine RBC (Auto) Urine WBC Clumps (Auto) Ur Squamous Epith Cells Urine Bacteria Hyaline Casts Urine HCG, Qual Influenza Typ A,B (EIA) Ur L.pneumophila Ag Mycoplasma pneumon IgM 07/07/18 21:21 WBC RBC Hgb Hct MCV MCH MCHC RDW Plt Count MPV Neut % (Auto) Lymph % (Auto) [place] % (Auto) Eos % (Auto) Baso % (Auto) Neut # (Auto) Lymph # (Auto) [place] # (Auto) Eos # (Auto) Baso # (Auto) Neutrophils % (Manual) Lymphocytes % (Manual) Monocytes % (Manual) Eosinophils % (Manual) Platelet Estimate Polychromasia Hypochromasia (manual) Anisocytosis (manual) Ovalocytes pO2 VBG pH VBG pCO2 VBG HCO3 VBG Total CO2 VBG O2 Sat (Calc) VBG Base Excess VBG Potassium Glucose Lactate Crit Value Called To Crit Value Called By Crit Value Read Back Blood Gas Notified Time Sodium Potassium Chloride Carbon Dioxide Anion Gap BUN Creatinine Est GFR ( Amer) Est GFR (Non-Af Amer) POC Glucose (mg/dL) Random Glucose Calcium Total Bilirubin AST ALT Alkaline Phosphatase Total Protein Albumin Globulin Albumin/Globulin Ratio Procalcitonin Venous Blood Potassium Urine Color Urine Clarity Urine pH Ur Specific Ajo Urine Protein Urine Glucose (UA) Urine Ketones Urine Blood Urine Nitrate Urine Bilirubin Urine Urobilinogen Ur Leukocyte Esterase Urine WBC (Auto) Urine RBC (Auto) Urine WBC Clumps (Auto) Ur Squamous Epith Cells Urine Bacteria Hyaline Casts Urine HCG, Qual Influenza Typ A,B (EIA) Ur L.pneumophila Ag Negative Mycoplasma pneumon IgM Assessment & Plan - Assessment and Plan (Free Text) Assessment: Nausea/vomitting: suspct 2nd NEHA, possible 2nd bactrim, avoid nephrotoxic drugs. obtain nephrologyu eval -Sepsis: ?UTI, check pylno or nephrolithiasis, check CT abd/pelvis, r/o URTI check influenza as patient's initial complaint was cough with cough induced vomitting, influenza, CXR, currently on ceftriaxone -?h/o diabetes: check HBA1c -currently rales: ? fluid overloaded versus aspiration, previous ct chest reveals pulmonary HTN, check CXR, bi-pap PRN -keep NPO -NEHA:gently hydration with IV bicarb, if no improvement, offer HD, renal consult -likely chronic diastolic heart failure: check BNP, echo start asa and av nodabl sandra -Patient recevied duonebs; however patient does not smoke, possible 2nd hand smoking. contineu dvt: heparin SQ -PUD ppx pepcid 20 mg q24 Prognosis guarded cc time 35 minutes - Date & Time Date: 07/08/18 Time: 00:09
[2018-07-08] MEDS ORDERED: Sodium Bicarbonate 8.4% 150 MEQ in Dextrose 5% In Water 1,000 ML IV SCH (01:00)
[2018-07-08 06:28] LABS: BASO % 0.4 % (0.0-2.0); EOS # 0.1 K/uL (0.0-0.7); EOS % 1.7 % (0.0-4.0); HEMOGLOBIN 9.8 g/dL (11.0-16.0); LYMPH # 0.9 K/uL (1.0-4.3); LYMPH % 18.9 % (20.0-40.0); MEAN CELL VOLUME 89.1 fL (81.0-99.0); MEAN CORPUSCULAR HEMOGLOBIN 29.7 pg (27.0-31.0); MEAN CORPUSCULAR HGB CONC 33.4 g/dL (33.0-37.0); MEAN PLATELET VOLUME 8.8 fL (7.2-11.7); MONO # 0.6 K/uL (0.0-0.8); MONO % 13.3 % (0.0-10.0); NEUT % 65.7 % (50.0-75.0); NRBC % 0.2 % (0.0-2.0); RBC 3.3 Mil/uL (3.80-5.20); RED CELL DISTRIBUTION WIDTH 15.7 % (11.5-14.5); WHITE BLOOD COUNT 4.6 K/uL (4.8-10.8)
[2018-07-08 07:21] LABS: ALBUMIN 2.9 g/dL (3.5-5.0); ALT/SGPT 36 U/L (9-52); AST/SGOT 111 U/L (14-36); BLOOD UREA NITROGEN 30 mg/dL (7-17); CALCIUM 7.3 mg/dl (8.6-10.4); GFR NON-AFRICAN AMERICAN 18
[2018-07-08] MEDS: Albuterol-Ipratrop 3 mg / 0.5 (3 ml) UD INH SCH ×3 (09:05→19:36)
--- NOTE | 2018-07-08 09:34 | RAD ---
Date of service: 07/07/2018 HISTORY: shortness of breath COMPARISON: Comparison made with chest radiograph 07/07/2018 FINDINGS: LUNGS: Diffuse increased coarsened interstitial infiltrates; rule out pulmonary venous congestive changes or possibly sequela of reactive/inflammatory or viral illness.. Mild bibasilar atelectasis PLEURA: No significant pleural effusion identified, no pneumothorax apparent. CARDIOVASCULAR: Normal. OSSEOUS STRUCTURES: No significant abnormalities. VISUALIZED UPPER ABDOMEN: Normal. OTHER FINDINGS: None. IMPRESSION: Diffuse increased coarsened interstitial infiltrates; rule out pulmonary venous congestive changes or possibly sequela of reactive/inflammatory or viral illness.. Mild bibasilar atelectasis
[2018-07-08] MEDS: (Novolog) Insulin Aspart, Recombinant 100 u/ml 10 ml vial SC SCH ×4 (09:36→23:05)
[2018-07-08] MEDS: Lactobacillus Acidophilus 500 MU Cap PO SCH ×2 (10:00→22:20)
[2018-07-08] MEDS: Azithromycin 500 MG in Sodium Chloride 0.9% 250 ML IVPB SCH (10:47)
[2018-07-08] MEDS ORDERED: Lactobacillus Acidophilus 500 MU Cap PO ONE (11:30)
[2018-07-08] MEDS ORDERED: Lactobacillus Acidophilus 500 MU Cap PO SCH (11:30)
--- NOTE | 2018-07-08 12:09 | CT ---
Date of service: 07/08/2018 PROCEDURE: CT Abdomen and Pelvis HISTORY: Rule out hafsa the lonephritis COMPARISON: Correlation made with CT chest 07/07/2018 TECHNIQUE: Contiguous axial images of the abdomen and pelvis. Oral contrast was administered. No IV contrast given. Coronal and Sagittal reformats generated. This CT exam was performed using one or more of the following dose reduction techniques: Automated exposure control, adjustment of the mA and/or kV according to patient size, and/or use of iterative reconstruction technique. Radiation dose: Total exam DLP = 453.23 mGy-cm. FINDINGS: LOWER THORAX: Small bilateral effusions right larger than left. Minor bibasilar atelectasis. Additionally, there also appears to be mild pulmonary venous congestive changes both lung bases. Heart is enlarged. Left atrium appears dilated. No significant pericardial effusion.. LIVER: Unremarkable. No gross lesion or ductal dilatation. GALLBLADDER AND BILE DUCTS: Unremarkable. PANCREAS: The pancreas is atrophic and fatty replaced SPLEEN: Unremarkable. No splenomegaly. ADRENALS: 1.4 mm left adrenal nodule with Hounsfield units on in the mid 20s. This could represent a lipid poor adenoma. Follow-up MRI recommended. KIDNEYS AND URETERS: Kidneys demonstrate relatively symmetric size. No evidence of nephrolithiasis or hydronephrosis. There are small partially exophytic low-attenuation foci seen arising from the upper, lower and posterolateral cortices of the left kidney likely representing cysts however the upper lower pole foci are slightly hyperdense in appearance. There is also a exophytic cyst arising from the lateral cortex mid pole right kidney as well... The renal parenchyma exhibits relatively normal attenuation pattern with no definitive evidence to suggest pyelonephritis however correlation with urinalysis recommended. BLADDER: In situ the unclamped Hernandes catheter.. The urinary bladder is predominately collapsed about the unclamped Hernandes catheter. There is also moderate amount of air present within the urinary bladder which is causes local distension of the anterior margin of the urinary bladder. The areas likely related to recent instrumentation with a Hernandes catheter however correlation with urinalysis recommended to exclude cystitis/UTI. REPRODUCTIVE: Unremarkable as visualized. APPENDIX: Normal-appearing appendix. BOWEL: Unremarkable. No obstruction. No gross mural thickening. Evaluation of the bowel slightly limited due to the lack of oral contrast material. Stomach is partially distended with food debris liquid and air. Visualized loops of small bowel exhibit normal contour and caliber. No evidence of acute mechanical small bowel obstruction. The large bowel is relatively collapsed on with no evidence of definitive mural wall thickening. PERITONEUM: Unremarkable. No fluid collection. No free air. LYMPH NODES: Unremarkable. No enlarged lymph nodes. VASCULATURE: Unremarkable. No aortic aneurysm. BONES: No fracture or destructive lesion. OTHER FINDINGS: None. IMPRESSION: Small bilateral effusions right larger than left. Pulmonary venous congestive changes. Cardiomegaly with a atrium. The small 1.3 left adrenal nodule possibly representing an adenoma however follow-up MRI of the LS recommended to confirm Recommend follow-up MRI of the brain. There are several bilateral exophytic low attenuation foci arising from both kidneys likely representing small cysts. In situ Hernandes catheter with air in the urinary bladder likely due to instrumentation however correlation with CT urinalysis to exclude UTI.
[2018-07-08] MEDS ORDERED: Propofol 10 mg/ml Inj (20 ML) ONE (14:10)
[2018-07-08 15:52] LABS: CALCIUM 6.9 mg/dl (8.6-10.4)
--- NOTE | 2018-07-08 16:08 | RAD ---
Date of service: 07/08/2018 HISTORY: s/p intubation COMPARISON: Comparison made with chest radiograph 07/08/2018. FINDINGS: In situ ETT, the tip of which lies within the proximal right mainstem bronchus and should be withdrawn. NGT tip lies left mid abdomen LUNGS: Venous congestive changes are present. PLEURA: No significant pleural effusion identified, no pneumothorax apparent. CARDIOVASCULAR: Normal. OSSEOUS STRUCTURES: No significant abnormalities. VISUALIZED UPPER ABDOMEN: Normal. OTHER FINDINGS: None. IMPRESSION: ET T tip lies in the proximal right mainstem bronchus and must be withdrawn. In situ NGT as described. Mild pulmonary venous congestive changes. ICU Nurse Trang informed these findings at 4 p.m. with written down and read back verification.
--- NOTE | 2018-07-08 16:14 | CP.CCUPN ---
CCU Subjective - Physician Review Events Since Last Encounter (Free Text): 07/08/18 16:07 went into sudden respiratory distress, requiring intubation. CCU Objective - Vital Signs / Intake & Output Intake and Output (Last 8hrs): Intake & Output 07/08/18 07/08/18 07/08/18 06:59 14:59 22:59 Intake Total 3250 410 Output Total 900 50 Balance 2350 360 Weight 111 lb Intake: IV 3000 Intake, IV Amount 200 360 Left Hand 200 200 Right Forearm 160 Oral 50 50 Output: Urine 900 50 Urethral (Mcintyre) 300 Urine, Voided 50 Stool 0 Other: # Voids Urine, Voided 1 - Physical Exam Head: Positive for: Atraumatic, Normocephalic Pupils: Positive for: PERRL Extroacular Muscles: Positive for: EOMI Conjunctiva: Positive for: Normal Mouth: Positive for: Moist Mucous Membranes Respiratory/Chest: Positive for: Rhonchi Cardiovascular: Positive for: Normal S1, S2, Tachycardic Abdomen: Positive for: Normal Bowel Sounds. Negative for: Tenderness, D istention Psychiatric: Positive for: Alert - Medications Active Medications: Active Medications Generic Name Dose Route Start Last Admin Trade Name Freq PRN Reason Stop Dose Admin Acetaminophen 650 mg 07/07/18 20:03 07/07/18 20:24 Tylenol 325mg Tab PO 650 mg Q6H PRN Administration Pain, moderate (4-7) Albuterol/Ipratropium 3 ml 07/07/18 18:35 07/07/18 19:29 Duoneb 3 Mg/0.5 Mg (3 Ml) Ud INH 3 ml RQ6 PRN Administration Wheezing Albuterol/Ipratropium 3 ml 07/08/18 08:00 07/08/18 13:45 Duoneb 3 Mg/0.5 Mg (3 Ml) Ud INH 3 ml RQ6 MANOLO Administration Dextrose 0 ml 07/07/18 18:19 Dextrose 50% Inj IV STAT PRN Hypoglycemia Protocol Protocol Dextrose 0 gm 07/07/18 18:19 Glutose 15 PO ONCE PRN Hypoglycemia Protocol Protocol Glucagon 0 mg 07/07/18 18:19 Glucagen Diagnostic Kit IM STAT PRN Hypoglycemia Protocol Protocol Guaifenesin 600 mg 07/08/18 18:00 Mucinex La PO BID MANOLO Ceftriaxone Sodium 1 gm/ 100 mls @ 100 mls/hr 07/08/18 10:00 07/08/18 10:46 Sodium Chloride IVPB 100 mls/hr DAILY MANOLO Administration Protocol Azithromycin 500 mg/ Sodium 250 mls @ 250 mls/hr 07/08/18 10:00 07/08/18 10:47 Chloride IVPB 250 mls/hr DAILY MANOLO Administration Protocol Dextrose 1,000 mls @ 0 mls/hr 07/07/18 18:19 Dextrose 5% In Water 1000 Ml IV .Q0M PRN Hypoglycemia Protocol Protocol Per Protocol Sodium Bicarbonate 75 meq/ 1,075 mls @ 60 mls/hr 07/08/18 12:43 07/08/18 13:21 Sodium Chloride IV 07/09/18 06:37 60 mls/hr .[id number] ONE Administration Fentanyl Citrate 2,500 mcg/ 250 mls @ 10.07 mls/hr 07/08/18 14:45 Sodium Chloride IV .Q24H MANOLO Protocol 2 MCG/KG/HR Insulin Aspart 0 unit 07/07/18 22:00 07/08/18 12:00 Novolog SC Not Given ACHS MANOLO Protocol Lactobacillus Acidophilus 1 cap 07/08/18 20:00 Bacid Acidophilus PO Q12H MANOLO Ondansetron HCl 4 mg 07/07/18 18:00 07/08/18 13:06 Zofran Inj IVP 4 mg Q6H PRN Administration Nausea/Vomiting Pantoprazole Sodium 40 mg 07/08/18 10:00 07/08/18 09:36 Protonix Inj IVP 40 mg BID MANOLO Administration Sodium Bicarbonate 650 mg 07/08/18 00:00 07/08/18 13:06 Sodium Bicarbonate Tab PO Not Given Q6 MANOLO Sodium Bicarbonate 1,300 mg 07/08/18 23:33 07/08/18 00:30 Sodium Bicarbonate Tab PO 07/08/18 23:34 1,300 mg ONCE ONE Administration - Patient Studies Lab Studies: Lab Studies 07/08/18 07/08/18 07/08/18 Range/Units 15:35 13:55 11:39 WBC (4.8-10.8) K/uL RBC (3.80-5.20) Mil/uL Hgb (11.0-16.0) g/dL Hct (34.0-47.0) % MCV (81.0-99.0) fL MCH (27.0-31.0) pg MCHC (33.0-37.0) g/dL RDW (11.5-14.5) % Plt Count (130-400) K/uL MPV (7.2-11.7) fL Neut % (Auto) (50.0-75.0) % Lymph % (Auto) (20.0-40.0) % Barbour % (Auto) (0.0-10.0) % Eos % (Auto) (0.0-4.0) % Baso % (Auto) (0.0-2.0) % Neut # (Auto) (1.8-7.0) K/uL Lymph # (Auto) (1.0-4.3) K/uL Barbour # (Auto) (0.0-0.8) K/uL Eos # (Auto) (0.0-0.7) K/uL Baso # (Auto) (0.0-0.2) K/uL pO2 (30-55) mm/Hg VBG pH (7.32-7.43) VBG pCO2 (40-60) mmHg VBG HCO3 mmol/L VBG Total CO2 (22-28) mmol/L VBG O2 Sat (Calc) (40-65) % VBG Base Excess (0.0-2.0) mmol/L VBG Potassium (3.6-5.2) mmol/L Sodium 139 (132-148) mmol/l Chloride 111 H (98-107) mmol/L Glucose (65-105) mg/dl Lactate (0.7-2.1) mmol/L Crit Value Called To Crit Value Called By Crit Value Read Back Blood Gas Notified Time Potassium 5.8 H (3.6-5.2) mmol/L Carbon Dioxide 12 L (22-30) mmol/L Anion Gap 21 H (10-20) BUN 29 H (7-17) mg/dL Creatinine 2.4 H (0.7-1.2) mg/dL Est GFR ( Amer) 26 Est GFR (Non-Af Amer) 21 POC Glucose (mg/dL) 134 H 117 H (65-110) mg/dL Random Glucose 137 H (65-105) mg/dL Calcium 6.9 L (8.6-10.4) mg/dl Phosphorus (2.5-4.5) mg/dL Magnesium (1.6-2.3) mg/dL Total Bilirubin (0.2-1.3) mg/dL AST (14-36) U/L ALT (9-52) U/L Alkaline Phosphatase (38-126) U/L NT-Pro-B Natriuret Pep (0-900) pg/mL Total Protein (6.3-8.3) g/dL Albumin (3.5-5.0) g/dL Globulin (2.2-3.9) gm/dL Albumin/Globulin Ratio (1.0-2.1) Procalcitonin (0.19-0.49) NG/ML TSH 3rd Generation (0.46-4.68) mIU/L Venous Blood Potassium (3.6-5.2) mmol/L Influenza Typ A,B (EIA) (NEGATIVE) Ur L.pneumophila Ag (NEGATIVE) Mycoplasma pneumon IgM (NEGATIVE) 07/08/18 07/08/18 07/08/18 Range/Units 07:23 06:21 06:21 WBC 4.6 L (4.8-10.8) K/uL RBC 3.30 L (3.80-5.20) Mil/uL Hgb 9.8 L (11.0-16.0) g/dL Hct 29.4 L (34.0-47.0) % MCV 89.1 (81.0-99.0) fL MCH 29.7 (27.0-31.0) pg MCHC 33.4 (33.0-37.0) g/dL RDW 15.7 H (11.5-14.5) % Plt Count 156 (130-400) K/uL MPV 8.8 (7.2-11.7) fL Neut % (Auto) 65.7 (50.0-75.0) % Lymph % (Auto) 18.9 L (20.0-40.0) % Barbour % (Auto) 13.3 H (0.0-10.0) % Eos % (Auto) 1.7 (0.0-4.0) % Baso % (Auto) 0.4 (0.0-2.0) % Neut # (Auto) 3.0 (1.8-7.0) K/uL Lymph # (Auto) 0.9 L (1.0-4.3) K/uL Barbour # (Auto) 0.6 (0.0-0.8) K/uL Eos # (Auto) 0.1 (0.0-0.7) K/uL Baso # (Auto) 0.0 (0.0-0.2) K/uL pO2 (30-55) mm/Hg VBG pH (7.32-7.43) VBG pCO2 (40-60) mmHg VBG HCO3 mmol/L VBG Total CO2 (22-28) mmol/L VBG O2 Sat (Calc) (40-65) % VBG Base Excess (0.0-2.0) mmol/L VBG Potassium (3.6-5.2) mmol/L Sodium 140 (132-148) mmol/l Chloride 112 H (98-107) mmol/L Glucose (65-105) mg/dl Lactate (0.7-2.1) mmol/L Crit Value Called To Crit Value Called By Crit Value Read Back Blood Gas Notified Time Potassium 4.6 (3.6-5.2) mmol/L Carbon Dioxide 12 L (22-30) mmol/L Anion Gap 21 H (10-20) BUN 30 H (7-17) mg/dL Creatinine 2.8 H (0.7-1.2) mg/dL Est GFR ( Amer) 21 Est GFR (Non-Af Amer) 18 POC Glucose (mg/dL) 206 H (65-110) mg/dL Random Glucose 178 H (65-105) mg/dL Calcium 7.3 L (8.6-10.4) mg/dl Phosphorus 4.4 (2.5-4.5) mg/dL Magnesium 2.3 (1.6-2.3) mg/dL Total Bilirubin 0.4 (0.2-1.3) mg/dL AST 111 H D (14-36) U/L ALT 36 (9-52) U/L Alkaline Phosphatase 119 (38-126) U/L NT-Pro-B Natriuret Pep (0-900) pg/mL Total Protein 5.9 L (6.3-8.3) g/dL Albumin 2.9 L D (3.5-5.0) g/dL Globulin 2.9 (2.2-3.9) gm/dL Albumin/Globulin Ratio 1.0 (1.0-2.1) Procalcitonin (0.19-0.49) NG/ML TSH 3rd Generation < 0.02 L (0.46-4.68) mIU/L Venous Blood Potassium (3.6-5.2) mmol/L Influenza Typ A,B (EIA) (NEGATIVE) Ur L.pneumophila Ag (NEGATIVE) Mycoplasma pneumon IgM (NEGATIVE) 07/08/18 07/07/18 07/07/18 Range/Units 02:20 23:28 21:21 WBC (4.8-10.8) K/uL RBC (3.80-5.20) Mil/uL Hgb (11.0-16.0) g/dL Hct (34.0-47.0) % MCV (81.0-99.0) fL MCH (27.0-31.0) pg MCHC (33.0-37.0) g/dL RDW (11.5-14.5) % Plt Count (130-400) K/uL MPV (7.2-11.7) fL Neut % (Auto) (50.0-75.0) % Lymph % (Auto) (20.0-40.0) % Barbour % (Auto) (0.0-10.0) % Eos % (Auto) (0.0-4.0) % Baso % (Auto) (0.0-2.0) % Neut # (Auto) (1.8-7.0) K/uL Lymph # (Auto) (1.0-4.3) K/uL Barbour # (Auto) (0.0-0.8) K/uL Eos # (Auto) (0.0-0.7) K/uL Baso # (Auto) (0.0-0.2) K/uL pO2 (30-55) mm/Hg VBG pH (7.32-7.43) VBG pCO2 (40-60) mmHg VBG HCO3 mmol/L VBG Total CO2 (22-28) mmol/L VBG O2 Sat (Calc) (40-65) % VBG Base Excess (0.0-2.0) mmol/L VBG Potassium (3.6-5.2) mmol/L Sodium (132-148) mmol/l Chloride (98-107) mmol/L Glucose (65-105) mg/dl Lactate (0.7-2.1) mmol/L Crit Value Called To Crit Value Called By Crit Value Read Back Blood Gas Notified Time Potassium (3.6-5.2) mmol/L Carbon Dioxide (22-30) mmol/L Anion Gap (10-20) BUN (7-17) mg/dL Creatinine (0.7-1.2) mg/dL Est GFR ( Amer) Est GFR (Non-Af Amer) POC Glucose (mg/dL) (65-110) mg/dL Random Glucose (65-105) mg/dL Calcium (8.6-10.4) mg/dl Phosphorus (2.5-4.5) mg/dL Magnesium (1.6-2.3) mg/dL Total Bilirubin (0.2-1.3) mg/dL AST (14-36) U/L ALT (9-52) U/L Alkaline Phosphatase (38-126) U/L NT-Pro-B Natriuret Pep 3140 H (0-900) pg/mL Total Protein (6.3-8.3) g/dL Albumin (3.5-5.0) g/dL Globulin (2.2-3.9) gm/dL Albumin/Globulin Ratio (1.0-2.1) Procalcitonin (0.19-0.49) NG/ML TSH 3rd Generation (0.46-4.68) mIU/L Venous Blood Potassium (3.6-5.2) mmol/L Influenza Typ A,B (EIA) Negative for flu a/b (NEGATIVE) Ur L.pneumophila Ag Negative (NEGATIVE) Mycoplasma pneumon IgM (NEGATIVE) 07/07/18 07/07/18 07/07/18 Range/Units 20:32 19:15 19:15 WBC (4.8-10.8) K/uL RBC (3.80-5.20) Mil/uL Hgb (11.0-16.0) g/dL Hct (34.0-47.0) % MCV (81.0-99.0) fL MCH (27.0-31.0) pg MCHC (33.0-37.0) g/dL RDW (11.5-14.5) % Plt Count (130-400) K/uL MPV (7.2-11.7) fL Neut % (Auto) (50.0-75.0) % Lymph % (Auto) (20.0-40.0) % Barbour % (Auto) (0.0-10.0) % Eos % (Auto) (0.0-4.0) % Baso % (Auto) (0.0-2.0) % Neut # (Auto) (1.8-7.0) K/uL Lymph # (Auto) (1.0-4.3) K/uL Barbour # (Auto) (0.0-0.8) K/uL Eos # (Auto) (0.0-0.7) K/uL Baso # (Auto) (0.0-0.2) K/uL pO2 27 L (30-55) mm/Hg VBG pH 7.13 L* (7.32-7.43) VBG pCO2 37 L (40-60) mmHg VBG HCO3 10.5 mmol/L VBG Total CO2 13.4 L (22-28) mmol/L VBG O2 Sat (Calc) 53.0 (40-65) % VBG Base Excess -16.1 L (0.0-2.0) mmol/L VBG Potassium 4.0 (3.6-5.2) mmol/L Sodium 143.0 (132-148) mmol/l Chloride 120.0 H (98-107) mmol/L Glucose 124 H (65-105) mg/dl Lactate 2.0 (0.7-2.1) mmol/L Crit Value Called To Vidhi pike do Crit Value Called By Aleshia rt Crit Value Read Back Y Blood Gas Notified Time 1919 Potassium (3.6-5.2) mmol/L Carbon Dioxide (22-30) mmol/L Anion Gap (10-20) BUN (7-17) mg/dL Creatinine (0.7-1.2) mg/dL Est GFR ( Amer) Est GFR (Non-Af Amer) POC Glucose (mg/dL) 184 H (65-110) mg/dL Random Glucose (65-105) mg/dL Calcium (8.6-10.4) mg/dl Phosphorus (2.5-4.5) mg/dL Magnesium (1.6-2.3) mg/dL Total Bilirubin (0.2-1.3) mg/dL AST (14-36) U/L ALT (9-52) U/L Alkaline Phosphatase (38-126) U/L NT-Pro-B Natriuret Pep (0-900) pg/mL Total Protein (6.3-8.3) g/dL Albumin (3.5-5.0) g/dL Globulin (2.2-3.9) gm/dL Albumin/Globulin Ratio (1.0-2.1) Procalcitonin 0.14 L (0.19-0.49) NG/ML TSH 3rd Generation (0.46-4.68) mIU/L Venous Blood Potassium 4.0 (3.6-5.2) mmol/L Influenza Typ A,B (EIA) (NEGATIVE) Ur L.pneumophila Ag (NEGATIVE) Mycoplasma pneumon IgM (NEGATIVE) 07/07/18 Range/Units 19:15 WBC (4.8-10.8) K/uL RBC (3.80-5.20) Mil/uL Hgb (11.0-16.0) g/dL Hct (34.0-47.0) % MCV (81.0-99.0) fL MCH (27.0-31.0) pg MCHC (33.0-37.0) g/dL RDW (11.5-14.5) % Plt Count (130-400) K/uL MPV (7.2-11.7) fL Neut % (Auto) (50.0-75.0) % Lymph % (Auto) (20.0-40.0) % Barbour % (Auto) (0.0-10.0) % Eos % (Auto) (0.0-4.0) % Baso % (Auto) (0.0-2.0) % Neut # (Auto) (1.8-7.0) K/uL Lymph # (Auto) (1.0-4.3) K/uL Barbour # (Auto) (0.0-0.8) K/uL Eos # (Auto) (0.0-0.7) K/uL Baso # (Auto) (0.0-0.2) K/uL pO2 (30-55) mm/Hg VBG pH (7.32-7.43) VBG pCO2 (40-60) mmHg VBG HCO3 mmol/L VBG Total CO2 (22-28) mmol/L VBG O2 Sat (Calc) (40-65) % VBG Base Excess (0.0-2.0) mmol/L VBG Potassium (3.6-5.2) mmol/L Sodium (132-148) mmol/l Chloride (98-107) mmol/L Glucose (65-105) mg/dl Lactate (0.7-2.1) mmol/L Crit Value Called To Crit Value Called By Crit Value Read Back Blood Gas Notified Time Potassium (3.6-5.2) mmol/L Carbon Dioxide (22-30) mmol/L Anion Gap (10-20) BUN (7-17) mg/dL Creatinine (0.7-1.2) mg/dL Est GFR ( Amer) Est GFR (Non-Af Amer) POC Glucose (mg/dL) (65-110) mg/dL Random Glucose (65-105) mg/dL Calcium (8.6-10.4) mg/dl Phosphorus (2.5-4.5) mg/dL Magnesium (1.6-2.3) mg/dL Total Bilirubin (0.2-1.3) mg/dL AST (14-36) U/L ALT (9-52) U/L Alkaline Phosphatase (38-126) U/L NT-Pro-B Natriuret Pep (0-900) pg/mL Total Protein (6.3-8.3) g/dL Albumin (3.5-5.0) g/dL Globulin (2.2-3.9) gm/dL Albumin/Globulin Ratio (1.0-2.1) Procalcitonin (0.19-0.49) NG/ML TSH 3rd Generation (0.46-4.68) mIU/L Venous Blood Potassium (3.6-5.2) mmol/L Influenza Typ A,B (EIA) (NEGATIVE) Ur L.pneumophila Ag (NEGATIVE) Mycoplasma pneumon IgM Negative (NEGATIVE) Laboratory Results - last 24 hr 07/07/18 07/07/18 07/07/18 19:15 19:15 19:15 WBC RBC Hgb Hct MCV MCH MCHC RDW Plt Count MPV Neut % (Auto) Lymph % (Auto) Barbour % (Auto) Eos % (Auto) Baso % (Auto) Neut # (Auto) Lymph # (Auto) Barbour # (Auto) Eos # (Auto) Baso # (Auto) pO2 27 L VBG pH 7.13 L* VBG pCO2 37 L VBG HCO3 10.5 VBG Total CO2 13.4 L VBG O2 Sat (Calc) 53.0 VBG Base Excess -16.1 L VBG Potassium 4.0 Sodium 143.0 Chloride 120.0 H Glucose 124 H Lactate 2.0 Crit Value Called To Vidhi pike do Crit Value Called By Aleshia baer Crit Value Read Back Y Blood Gas Notified Time 1920 Potassium Carbon Dioxide Anion Gap BUN Creatinine Est GFR ( Amer) Est GFR (Non-Af Amer) POC Glucose (mg/dL) Random Glucose Calcium Phosphorus Magnesium Total Bilirubin AST ALT Alkaline Phosphatase NT-Pro-B Natriuret Pep Total Protein Albumin Globulin Albumin/Globulin Ratio Procalcitonin 0.14 L TSH 3rd Generation Venous Blood Potassium 4.0 Influenza Typ A,B (EIA) Ur L.pneumophila Ag Mycoplasma pneumon IgM Negative 07/07/18 07/07/18 07/07/18 20:32 21:21 23:28 WBC RBC Hgb Hct MCV MCH MCHC RDW Plt Count MPV Neut % (Auto) Lymph % (Auto) Barbour % (Auto) Eos % (Auto) Baso % (Auto) Neut # (Auto) Lymph # (Auto) Barbour # (Auto) Eos # (Auto) Baso # (Auto) pO2 VBG pH VBG pCO2 VBG HCO3 VBG Total CO2 VBG O2 Sat (Calc) VBG Base Excess VBG Potassium Sodium Chloride Glucose Lactate Crit Value Called To Crit Value Called By Crit Value Read Back Blood Gas Notified Time Potassium Carbon Dioxide Anion Gap BUN Creatinine Est GFR ( Amer) Est GFR (Non-Af Amer) POC Glucose (mg/dL) 184 H Random Glucose Calcium Phosphorus Magnesium Total Bilirubin AST ALT Alkaline Phosphatase NT-Pro-B Natriuret Pep 3140 H Total Protein Albumin Globulin Albumin/Globulin Ratio Procalcitonin TSH 3rd Generation Venous Blood Potassium Influenza Typ A,B (EIA) Ur L.pneumophila Ag Negative Mycoplasma pneumon IgM 07/08/18 07/08/18 07/08/18 02:20 06:21 06:21 WBC 4.6 L RBC 3.30 L Hgb 9.8 L Hct 29.4 L MCV 89.1 MCH 29.7 MCHC 33.4 RDW 15.7 H Plt Count 156 MPV 8.8 Neut % (Auto) 65.7 Lymph % (Auto) 18.9 L Barbour % (Auto) 13.3 H Eos % (Auto) 1.7 Baso % (Auto) 0.4 Neut # (Auto) 3.0 Lymph # (Auto) 0.9 L Barbour # (Auto) 0.6 Eos # (Auto) 0.1 Baso # (Auto) 0.0 pO2 VBG pH VBG pCO2 VBG HCO3 VBG Total CO2 VBG O2 Sat (Calc) VBG Base Excess VBG Potassium Sodium 140 Chloride 112 H Glucose Lactate Crit Value Called To Crit Value Called By Crit Value Read Back Blood Gas Notified Time Potassium 4.6 Carbon Dioxide 12 L Anion Gap 21 H BUN 30 H Creatinine 2.8 H Est GFR ( Amer) 21 Est GFR (Non-Af Amer) 18 POC Glucose (mg/dL) Random Glucose 178 H Calcium 7.3 L Phosphorus 4.4 Magnesium 2.3 Total Bilirubin 0.4 AST 111 H D ALT 36 Alkaline Phosphatase 119 NT-Pro-B Natriuret Pep Total Protein 5.9 L Albumin 2.9 L D Globulin 2.9 Albumin/Globulin Ratio 1.0 Procalcitonin TSH 3rd Generation < 0.02 L Venous Blood Potassium Influenza Typ A,B (EIA) Negative for flu a/b Ur L.pneumophila Ag Mycoplasma pneumon IgM 07/08/18 07/08/18 07/08/18 07:23 11:39 13:55 WBC RBC Hgb Hct MCV MCH MCHC RDW Plt Count MPV Neut % (Auto) Lymph % (Auto) Barbour % (Auto) Eos % (Auto) Baso % (Auto) Neut # (Auto) Lymph # (Auto) Barbour # (Auto) Eos # (Auto) Baso # (Auto) pO2 VBG pH VBG pCO2 VBG HCO3 VBG Total CO2 VBG O2 Sat (Calc) VBG Base Excess VBG Potassium Sodium Chloride Glucose Lactate Crit Value Called To Crit Value Called By Crit Value Read Back Blood Gas Notified Time Potassium Carbon Dioxide Anion Gap BUN Creatinine Est GFR ( Amer) Est GFR (Non-Af Amer) POC Glucose (mg/dL) 206 H 117 H 134 H Random Glucose Calcium Phosphorus Magnesium Total Bilirubin AST ALT Alkaline Phosphatase NT-Pro-B Natriuret Pep Total Protein Albumin Globulin Albumin/Globulin Ratio Procalcitonin TSH 3rd Generation Venous Blood Potassium Influenza Typ A,B (EIA) Ur L.pneumophila Ag Mycoplasma pneumon IgM 07/08/18 15:35 WBC RBC Hgb Hct MCV MCH MCHC RDW Plt Count MPV Neut % (Auto) Lymph % (Auto) Barbour % (Auto) Eos % (Auto) Baso % (Auto) Neut # (Auto) Lymph # (Auto) Barbour # (Auto) Eos # (Auto) Baso # (Auto) pO2 VBG pH VBG pCO2 VBG HCO3 VBG Total CO2 VBG O2 Sat (Calc) VBG Base Excess VBG Potassium Sodium 139 Chloride 111 H Glucose Lactate Crit Value Called To Crit Value Called By Crit Value Read Back Blood Gas Notified Time Potassium 5.8 H Carbon Dioxide 12 L Anion Gap 21 H BUN 29 H Creatinine 2.4 H Est GFR ( Amer) 26 Est GFR (Non-Af Amer) 21 POC Glucose (mg/dL) Random Glucose 137 H Calcium 6.9 L Phosphorus Magnesium Total Bilirubin AST ALT Alkaline Phosphatase NT-Pro-B Natriuret Pep Total Protein Albumin Globulin Albumin/Globulin Ratio Procalcitonin TSH 3rd Generation Venous Blood Potassium Influenza Typ A,B (EIA) Ur L.pneumophila Ag Mycoplasma pneumon IgM EKG/Cardiology Studies: Cardiology / EKG Studies 07/07/18 22:13 EKG [ELECTROCARDIOGRAM] Stat Comment: Mode Of Transportation: STRETCHER Reason For Exam: tachycardia Fingerstick Blood Sugar Results: 117 Review of Systems - Review of Systems Systems not reviewed;Unavailable: Intubated Critical Care Progress Note - Nutrition Nutrition: Nutrition Category Date Time Status Consistent Carbohydrate [DIET] Diets 07/08/18 Dinner Active Assessment/Plan (1) Aspiration pneumonia Assessment and plan: 52 y/o female with past medical history of Diabetes Mellitus presents to [facility] with c/p cough and malaise for the past 2-3 weeks. coughing associated with vomiting. (+) vomiting food contents. Seen in ED three days earlier dx with UTI & started on Bactrim. Neuro: sedated with fentanyl gtt. Pulm: acute respiratory failure, from suspected aspiration pneumonia with recent vomiting episodes x 2 weeks. Patient supposedly started vomiting from taking recent abx for UTI. patient required emergent intubation, lots of vomitus keith ctioned out. now sedated on vent, PRVC. abx, duonebs. High risk for aspiration pneumonitis/pneumonia. CV: hemodynamically stable, slight drop in pressure s/p intubation and sedation. Will monitor. Hem: no acute issues Renal: oliguria, hyperkalemia, acidotic, will most likely need dialysis. Will consult renal. Endo: DM type 2, SISS for coverage, q6h. GI: NPO, tube feeds, Glucerna ID: aspiration pneumonitis/pneumonia, and recent UTI. Continue Cefepmie. DVT proph - heparin sq GI proph - protonix mcintyre for strict I/O's during acute illness Code status - full code Critical Care Time spent 35 minutes Multi-disciplinary rounds were performed with house staff, nursing, speech therapy, respiratory therapy, pharmacy and nutrition with integrated input from the primary team/attending and other consulting services. The documented time is cumulative and includes review of patient data/exams/labs/chart review and examination of the patient on rounds and throughout the day; time is exclusive of any procedures or teaching time. Current Visit: Yes Status: Acute
--- NOTE | 2018-07-08 16:43 | CP.PCM.PN ---
Subjective - Date & Time of Evaluation Date of Evaluation: 07/08/18 Time of Evaluation: 18:25 - Subjective Subjective: Patient seen and examined in the ICU Vented with Fio2 of 60% and PEEP of 5 Objective - Vital Signs/Intake and Output Vital Signs (last 24 hours): Temp Pulse Resp BP Pulse Ox 97.8 F 100 H 23 89/58 L 99 07/08/18 04:00 07/08/18 11:45 07/08/18 06:00 07/08/18 05:57 07/08/18 06:00 Intake and Output: 07/08/18 07/08/18 06:59 18:59 Intake Total 3250 410 Output Total 900 50 Balance 2350 360 - Medications Medications: Current Medications Acetaminophen (Tylenol 325mg Tab) 650 mg PO Q6H PRN PRN Reason: Pain, moderate (4-7) Last Admin: 07/07/18 20:24 Dose: 650 mg Albuterol/Ipratropium (Duoneb 3 Mg/0.5 Mg (3 Ml) Ud) 3 ml INH RQ6 PRN PRN Reason: Wheezing Last Admin: 07/07/18 19:29 Dose: 3 ml Albuterol/Ipratropium (Duoneb 3 Mg/0.5 Mg (3 Ml) Ud) 3 ml INH RQ6 MANOLO Last Admin: 07/08/18 13:45 Dose: 3 ml Dextrose (Dextrose 50% Inj) 0 ml IV STAT PRN; Protocol PRN Reason: Hypoglycemia Protocol Dextrose (Glutose 15) 0 gm PO ONCE PRN; Protocol PRN Reason: Hypoglycemia Protocol Glucagon (Glucagen Diagnostic Kit) 0 mg IM STAT PRN; Protocol PRN Reason: Hypoglycemia Protocol Guaifenesin (Mucinex La) 600 mg PO BID MANOLO Ceftriaxone Sodium 1 gm/ (Sodium Chloride) 100 mls @ 100 mls/hr IVPB DAILY MANOLO; Protocol Last Admin: 07/08/18 10:46 Dose: 100 mls/hr Azithromycin 500 mg/ Sodium (Chloride) 250 mls @ 250 mls/hr IVPB DAILY MANOLO; Protocol Last Admin: 07/08/18 10:47 Dose: 250 mls/hr Dextrose (Dextrose 5% In Water 1000 Ml) 1,000 mls @ 0 mls/hr IV .Q0M PRN; Protocol PRN Reason: Hypoglycemia Protocol Sodium Bicarbonate 75 meq/ (Sodium Chloride) 1,075 mls @ 60 mls/hr IV .[id number] ONE Stop: 07/09/18 06:37 Last Admin: 07/08/18 13:21 Dose: 60 mls/hr Fentanyl Citrate 2,500 mcg/ (Sodium Chloride) 250 mls @ 10.07 mls/hr IV .Q24H MANOLO; Protocol Insulin Aspart (Novolog) 0 unit SC ACHS MANOLO; Protocol Last Admin: 07/08/18 12:00 Dose: Not Given Lactobacillus Acidophilus (Bacid Acidophilus) 1 cap PO Q12H MANOLO Ondansetron HCl (Zofran Inj) 4 mg IVP Q6H PRN PRN Reason: Nausea/Vomiting Last Admin: 07/08/18 13:06 Dose: 4 mg Pantoprazole Sodium (Protonix Inj) 40 mg IVP BID MANOLO Last Admin: 07/08/18 09:36 Dose: 40 mg Sodium Bicarbonate (Sodium Bicarbonate Tab) 650 mg PO Q6 MANOLO Last Admin: 07/08/18 13:06 Dose: Not Given Sodium Bicarbonate (Sodium Bicarbonate Tab) 1,300 mg PO ONCE ONE Stop: 07/08/18 23:34 Last Admin: 07/08/18 00:30 Dose: 1,300 mg - Labs Labs: 07/08/18 06:21 07/08/18 15:35 Assessment and Plan - Assessment and Plan (Free Text) Plan: Assessment and plan: 52 y/o female with past medical history of Diabetes Mellitus presents to [facility] with c/p cough and malaise for the past 2-3 weeks. coughing associated with vomiting. (+) vomiting food contents. Seen in ED three days earlier dx with UTI & started on Bactrim. Neuro: sedated with fentanyl gtt. Pulm: acute respiratory failure, from suspected aspiration pneumonia with recent vomiting episodes x 2 weeks. Patient supposedly started vomiting from taking recent abx for UTI. patient required emergent intubation, lots of vomitus suctioned out. now sedated on vent, PRVC. abx, duonebs. High risk for aspiration pneumonitis/pneumonia. CV: hemodynamically stable, slight drop in pressure s/p intubation and sedation. Will monitor. Hem: no acute issues Renal: urine output wnl, will monitor. Endo: DM type 2, SISS for coverage, q6h. GI: NPO, tube feeds, Glucerna ID: aspiration pneumonitis/pneumonia, and recent UTI. Continue Cefepime continue dvt: heparin SQ PUD ppx: pepcid 20 mg q24 Prognosis guarded
[2018-07-08 16:49] LABS: SQUAMOUS EPITHIAL < 1 /hpf (0-5); URINE BACTERIA OCC (<OCC); URINE BILIRUBIN NEGATIVE (NEGATIVE); URINE BLOOD 2+ (NEGATIVE); URINE CLARITY Hazy (Clear); URINE COLOR Yellow (YELLOW); URINE GLUCOSE (UA) NORMAL (Normal); URINE LEUKOCYTE ESTERASE NEG Leu/uL (Negative); URINE PROTEIN 2+ mg/dL (NEGATIVE); URINE UROBILINOGEN NORMAL mg/dL (0.2-1.0)
[2018-07-08 16:50] LABS: ABG ALLEN TEST POS; ARTERIAL BLOOD GAS HCO3 14.8 mmol/L (21-28); ARTERIAL BLOOD GAS O2 SAT 94.7 % (95-98); ARTERIAL BLOOD GAS PCO2 36 mm/Hg (35-45); ARTERIAL BLOOD GAS PH 7.21 (7.35-7.45); ARTERIAL BLOOD GAS PO2 67 mm/Hg (80-100); ARTERIAL BLOOD GAS TCO2 15.5 mmol/L (22-28)
--- NOTE | 2018-07-08 17:02 | PCM.PROC ---
Procedures Attestation:: I certify that I have explained the specified Operation(s) or Procedure(s), risks, benefits and reasonable alternatives to the Patient and/or other person responsible. The opportunity was given to ask questions and all questions answered - Intubation Time Out Performed: No (emergent) Sedative: Other (propofol) Paralytic: Rocuronimum Laryngoscope: Glidescope ET Tube Size: 6.5 ET Tube Uncuffed: No (cuffed) ET Tube Secured at Depth: 23 (adjusted to 21 after CXR) ET Tube Secured Locarion: Lips ET Tube Placement Confirmation: Visualized Passing Through Cords, Breath Sounds Equal Bilaterally, No Breath Sounds Over Epigastrum, Confirmation w/Capnometry Patient Tolerated Procedure: Well Procedure Immediate Complications: Difficult Intubation
[2018-07-08] MEDS ORDERED: guaiFENesin 600 mg ER Tab PO SCH (18:00)
--- NOTE | 2018-07-08 18:30 | PCM.PROC ---
<Anabel Hinkle - Last Filed: 07/08/18 18:30> Procedures Attestation:: I certify that I have explained the specified Operation(s) or Procedure(s), risks, benefits and reasonable alternatives to the Patient and/or other person responsible. The opportunity was given to ask questions and all questions answered - Central Line Placement Right Internal Jugular Hemodialysis Access Aseptic technique was employed throughout the procedure: Hand Hygiene done prior to procedure, Full sterile barriers (mask, hair cover, sterile gown, sterile gloves), Full body sterile drape, Chloraprep Antiseptic: 30 second prep for IJ or SC sites, Chloraprep Antiseptic: 2 minute prep for Femoral CVP Time Out Performed: Yes Pt. Placed on Pulse Ox Monitor: Yes Central Line Prep: Chlorhexidine-Alcohol Combination Local Anesthesia Used: Lidocaine 2% Ultrasound Used for Placement: Yes Central Line Lumen Inserted: triple Central Line Length: 20 cm Post Procedure: Sutured in Place, Good Blood Return, All Ports Aspirated, Flushed, Capped, Sterile Dressing Applied Secured by: Suture Post procedure dressing: Chlorhexidine disc (Biopatch) Post Procedure X-Ray: Yes Patient Tolerated Procedure: Well Immediate Complications: None Additional Comments: Central line initially successfully placed in right femoral vein however due to lack of good blood flow was removed. Central line was then placed in right IJ vein with good blood flow. <Merlin Oshea - Last Filed: 07/08/18 18:56> Attending/Attestation - Attestation I have personally seen and examined this patient.: Yes I have fully participated in the care of the patient.: Yes I have reviewed all pertinent clinical information, including history, physical exam and plan: Yes Notes (Text): 07/08/18 18:54 I participated, assisted and help complete this procedure with resident physician Dr. Little. The first line was successfully placed by Dr. Little under my supervision, but unfortunately had poor blood flow, most likely to unforseen anatomical issues. The second line (RIJ) was placed by me, with good blood flow. Patient tolerated the procedure well, with no complications.
--- NOTE | 2018-07-08 19:57 | CP.PCM.CON ---
History of Present Illness - History of Present Illness History of Present Illness: RENAL CONSULT HPI: 52 y/o F w/ pmh of DM that presented to ER yestrdya w/ cough malaise and vomitting. She was seen several days prior to admission w/ UTI and discharged on bactrim. She respresented to female with past medical history of Diabetes Mellitus presents [facility] with c/p cough and malaise for the past 2-3 weeks. On representation - she developed respiratory distress was transfererd to ICU - and intubated. Her bp has been low but not requiring pressors - she has developed acidosis and hyperkalemia as well and oligoanuria. ROS: a full detailed ROS is limited as pt is intubated and sedated pmh: dm famhx: no hx of esrd sochx: unable to obtain intubated meds: as below all: as below pe: vs as below gen: intubated and sedated sclera: anicteric op: et tube neck: supple no thyromegaly cv:+s1+s2 no rub, tachy lungs: coarse bs b/l abd: soft, nt/ + bs , no organomegaly ext: no edema neuro: sedated psych: sedated skin no rash labs and imaging reviewed imp: ARF/hyperkalemia/metabolic acidosis/ sepsis/ hypoxic respiratory failure plan: seun - ? sepsis related atn. however, initial ua w/ no nitrates few bacteria. She is growing GNR from current UA this admission while she was on bactrim. Other etiologies include GN/hypovolemia prerenal. She did have 1+ protein/wbc/rbc on initial UA. Will quantify urine, will check GN serologies as well. Given oligoanuria - emergency hd for acidosis/hyperkalemia vent wean per primary abx per primary dose for reduced egfr will check cpk pt critically ill discussed w/ ICU team Past Patient History - Tetanus Immunizations Tetanus Immunization: Unknown - Past Medical History & Family History Past Family History: Reviewed and not pertinent - Past Social History Smoking Status: Never Smoked Alcohol: None Drugs: Denies Home Situation {Lives}: With Family - CARDIAC Hx Hypercholesterolemia: Yes - PULMONARY Hx Respiratory Disorders: No - NEUROLOGICAL Hx Neurological Disorder: No - HEENT Hx HEENT Problems: No - RENAL Hx Chronic Kidney Disease: No - ENDOCRINE/METABOLIC Hx Endocrine Disorders: Yes Hx Diabetes Mellitus Type 1: Yes - HEMATOLOGICAL/ONCOLOGICAL Hx Blood Disorders: No - INTEGUMENTARY Hx Dermatological Problems: No - MUSCULOSKELETAL/RHEUMATOLOGICAL Hx Musculoskeletal Disorders: No Hx Falls: No - GASTROINTESTINAL Hx Gastrointestinal Disorders: No - GENITOURINARY/GYNECOLOGICAL Hx Genitourinary Disorders: No - PSYCHIATRIC Hx Substance Use: No - SURGICAL HISTORY Other/Comment: removal of ovaries - ANESTHESIA Hx Anesthesia: Yes Hx Anesthesia Reactions: No Hx Malignant Hyperthermia: No Meds Allergies/Adverse Reactions: Allergies Allergy/AdvReac Type Severity Reaction Status Date / Time No Known Allergies Allergy Unverified 07/03/18 23:36 - Medications Medications: Current Medications Acetaminophen (Tylenol 325mg Tab) 650 mg PO Q6H PRN PRN Reason: Pain, moderate (4-7) Last Admin: 07/07/18 20:24 Dose: 650 mg Albuterol/Ipratropium (Duoneb 3 Mg/0.5 Mg (3 Ml) Ud) 3 ml INH RQ6 PRN PRN Reason: Wheezing Last Admin: 07/07/18 19:29 Dose: 3 ml Albuterol/Ipratropium (Duoneb 3 Mg/0.5 Mg (3 Ml) Ud) 3 ml INH RQ6 [facility] Last Admin: 07/08/18 19:36 Dose: 3 ml Dextrose (Dextrose 50% Inj) 0 ml IV STAT PRN; Protocol PRN Reason: Hypoglycemia Protocol Dextrose (Glutose 15) 0 gm PO ONCE PRN; Protocol PRN Reason: Hypoglycemia Protocol Glucagon (Glucagen Diagnostic Kit) 0 mg IM STAT PRN; Protocol PRN Reason: Hypoglycemia Protocol Guaifenesin (Mucinex La) 600 mg PO BID [facility] Heparin Sodium (Porcine) (Heparin) 5,000 units SC Q8 [facility] Ceftriaxone Sodium 1 gm/ (Sodium Chloride) 100 mls @ 100 mls/hr IVPB DAILY [facility]; Protocol Last Admin: 07/08/18 10:46 Dose: 100 mls/hr Azithromycin 500 mg/ Sodium (Chloride) 250 mls @ 250 mls/hr IVPB DAILY [facility]; Protocol Last Admin: 07/08/18 10:47 Dose: 250 mls/hr Dextrose (Dextrose 5% In Water 1000 Ml) 1,000 mls @ 0 mls/hr IV .Q0M PRN; P rotocol PRN Reason: Hypoglycemia Protocol Sodium Bicarbonate 75 meq/ (Sodium Chloride) 1,075 mls @ 60 mls/hr IV .[id number] ONE Stop: 07/09/18 06:37 Last Admin: 07/08/18 13:21 Dose: 60 mls/hr Fentanyl Citrate 2,500 mcg/ (Sodium Chloride) 250 mls @ 10.07 mls/hr IV .Q24H [facility]; Protocol Insulin Aspart (Novolog) 0 unit SC ACHS [facility]; Protocol Last Admin: 07/08/18 12:00 Dose: Not Given Lactobacillus Acidophilus (Bacid Acidophilus) 1 cap PO Q12H [facility] Ondansetron HCl (Zofran Inj) 4 mg IVP Q6H PRN PRN Reason: Nausea/Vomiting Last Admin: 07/08/18 13:06 Dose: 4 mg Pantoprazole Sodium (Protonix Inj) 40 mg IVP BID [facility] Last Admin: 07/08/18 09:36 Dose: 40 mg Sodium Bicarbonate (Sodium Bicarbonate Tab) 650 mg PO Q6 [facility] Last Admin: 07/08/18 13:06 Dose: Not Given Sodium Bicarbonate (Sodium Bicarbonate Tab) 1,300 mg PO ONCE ONE Stop: 07/08/18 23:34 Last Admin: 07/08/18 00:30 Dose: 1,300 mg Results - Vital Signs Recent Vital Signs: Last Vital Signs Temp 97.5 F L 07/08/18 19:25 Pulse 117 H 07/08/18 19:25 Resp 19 07/08/18 19:25 BP 108/69 07/08/18 19:40 Pulse Ox 97 07/08/18 19:25 - Labs Result Diagrams: 07/08/18 06:21 07/08/18 15:35 Labs: Laboratory Results - last 24 hr 07/07/18 07/07/18 07/07/18 19:15 19:15 20:32 WBC RBC Hgb Hct MCV MCH MCHC RDW Plt Count MPV Neut % (Auto) Lymph % (Auto) [place] % (Auto) Eos % (Auto) Baso % (Auto) Neut # (Auto) Lymph # (Auto) [place] # (Auto) Eos # (Auto) Baso # (Auto) Puncture Site pCO2 pO2 HCO3 ABG pH ABG Total CO2 ABG O2 Saturation ABG Base Excess [place] Test ABG Potassium A-a O2 Difference Respiratory Index Glucose Lactate Vent Mode Mechanical Rate FiO2 Tidal Volume PEEP Sodium Potassium Chloride Carbon Dioxide Anion Gap BUN Creatinine Est GFR ( Amer) Est GFR (Non-Af Amer) POC Glucose (mg/dL) 184 H Random Glucose Calcium Phosphorus Magnesium Total Bilirubin AST ALT Alkaline Phosphatase NT-Pro-B Natriuret Pep Total Protein Albumin Globulin Albumin/Globulin Ratio Procalcitonin 0.14 L TSH 3rd Generation Arterial Blood Potassium Urine Color Urine Clarity Urine pH Ur Specific [place] Urine Protein Urine Glucose (UA) Urine Ketones Urine Blood Urine Nitrate Urine Bilirubin Urine Urobilinogen Ur Leukocyte Esterase Urine WBC (Auto) Urine RBC (Auto) Ur Squamous Epith Cells Urine Bacteria Influenza Typ A,B (EIA) Ur L.pneumophila Ag Mycoplasma pneumon IgM Negative 07/07/18 07/07/18 07/08/18 21:21 23:28 02:20 WBC RBC Hgb Hct MCV MCH MCHC RDW Plt Count MPV Neut % (Auto) Lymph % (Auto) [place] % (Auto) Eos % (Auto) Baso % (Auto) Neut # (Auto) Lymph # (Auto) [place] # (Auto) Eos # (Auto) Baso # (Auto) Puncture Site pCO2 pO2 HCO3 ABG pH ABG Total CO2 ABG O2 Saturation ABG Base Excess [place] Test ABG Potassium A-a O2 Difference Respiratory Index Glucose Lactate Vent Mode Mechanical Rate FiO2 Tidal Volume PEEP Sodium Potassium Chloride Carbon Dioxide Anion Gap BUN Creatinine Est GFR ( Amer) Est GFR (Non-Af Amer) POC Glucose (mg/dL) Random Glucose Calcium Phosphorus Magnesium Total Bilirubin AST ALT Alkaline Phosphatase NT-Pro-B Natriuret Pep 3140 H Total Protein Albumin Globulin Albumin/Globulin Ratio Procalcitonin TSH 3rd Generation Arterial Blood Potassium Urine Color Urine Clarity Urine pH Ur Specific [place] Urine Protein Urine Glucose (UA) Urine Ketones Urine Blood Urine Nitrate Urine Bilirubin Urine Urobilinogen Ur Leukocyte Esterase Urine WBC (Auto) Urine RBC (Auto) Ur Squamous Epith Cells Urine Bacteria Influenza Typ A,B (EIA) Negative for flu a/b Ur L.pneumophila Ag Negative Mycoplasma pneumon IgM 07/08/18 07/08/18 07/08/18 06:21 06:21 07:23 WBC 4.6 L RBC 3.30 L Hgb 9.8 L Hct 29.4 L MCV 89.1 MCH 29.7 MCHC 33.4 RDW 15.7 H Plt Count 156 MPV 8.8 Neut % (Auto) 65.7 Lymph % (Auto) 18.9 L [place] % (Auto) 13.3 H Eos % (Auto) 1.7 Baso % (Auto) 0.4 Neut # (Auto) 3.0 Lymph # (Auto) 0.9 L [place] # (Auto) 0.6 Eos # (Auto) 0.1 Baso # (Auto) 0.0 Puncture Site pCO2 pO2 HCO3 ABG pH ABG Total CO2 ABG O2 Saturation ABG Base Excess [place]ev[place] Test ABG Potassium A-a O2 Difference Respiratory Index Glucose Lactate Vent Mode Mechanical Rate FiO2 Tidal Volume PEEP Sodium 140 Potassium 4.6 Chloride 112 H Carbon Dioxide 12 L Anion Gap 21 H BUN 30 H Creatinine 2.8 H Est GFR ( Amer) 21 Est GFR (Non-Af Amer) 18 POC Glucose (mg/dL) 206 H Random Glucose 178 H Calcium 7.3 L Phosphorus 4.4 Magnesium 2.3 Total Bilirubin 0.4 AST 111 H D ALT 36 Alkaline Phosphatase 119 NT-Pro-B Natriuret Pep Total Protein 5.9 L Albumin 2.9 L D Globulin 2.9 Albumin/Globulin Ratio 1.0 Procalcitonin TSH 3rd Generation < 0.02 L Arterial Blood Potassium Urine Color Urine Clarity Urine pH Ur Specific [place] Urine Protein Urine Glucose (UA) Urine Ketones Urine Blood Urine Nitrate Urine Bilirubin Urine Urobilinogen Ur Leukocyte Esterase Urine WBC (Auto) Urine RBC (Auto) Ur Squamous Epith Cells Urine Bacteria Influenza Typ A,B (EIA) Ur L.pneumophila Ag Mycoplasma pneumon IgM 07/08/18 07/08/18 07/08/18 11:39 13:55 15:35 WBC RBC Hgb Hct MCV MCH MCHC RDW Plt Count MPV Neut % (Auto) Lymph % (Auto) [place] % (Auto) Eos % (Auto) Baso % (Auto) Neut # (Auto) Lymph # (Auto) [place] # (Auto) Eos # (Auto) Baso # (Auto) Puncture Site pCO2 pO2 HCO3 ABG pH ABG Total CO2 ABG O2 Saturation ABG Base Excess [place]ev[place] Test ABG Potassium A-a O2 Difference Respiratory Index Glucose Lactate Vent Mode Mechanical Rate FiO2 Tidal Volume PEEP Sodium 139 Potassium 5.8 H Chloride 111 H Carbon Dioxide 12 L Anion Gap 21 H BUN 29 H Creatinine 2.4 H Est GFR ( Amer) 26 Est GFR (Non-Af Amer) 21 POC Glucose (mg/dL) 117 H 134 H Random Glucose 137 H Calcium 6.9 L Phosphorus Magnesium Total Bilirubin AST ALT Alkaline Phosphatase NT-Pro-B Natriuret Pep Total Protein Albumin Globulin Albumin/Globulin Ratio Procalcitonin TSH 3rd Generation Arterial Blood Potassium Urine Color Urine Clarity Urine pH Ur Specific [place] Urine Protein Urine Glucose (UA) Urine Ketones Urine Blood Urine Nitrate Urine Bilirubin Urine Urobilinogen Ur Leukocyte Esterase Urine WBC (Auto) Urine RBC (Auto) Ur Squamous Epith Cells Urine Bacteria Influenza Typ A,B (EIA) Ur L.pneumophila Ag Mycoplasma pneumon IgM 07/08/18 07/08/18 07/08/18 16:31 16:33 16:45 WBC RBC Hgb Hct MCV MCH MCHC RDW Plt Count MPV Neut % (Auto) Lymph % (Auto) [place] % (Auto) Eos % (Auto) Baso % (Auto) Neut # (Auto) Lymph # (Auto) [place] # (Auto) Eos # (Auto) Baso # (Auto) Puncture Site Rradial pCO2 36 pO2 67 L HCO3 14.8 L ABG pH 7.21 L ABG Total CO2 15.5 L ABG O2 Saturation 94.7 L ABG Base Excess -12.6 L [place] Test Pos ABG Potassium 4.5 A-a O2 Difference 316.0 Respiratory Index 4.7 Glucose 145 H Lactate 1.6 Vent Mode Prvc Mechanical Rate 14 FiO2 60.0 Tidal Volume 400 PEEP 5 Sodium 137.0 Potassium Chloride 111.0 H Carbon Dioxide Anion Gap BUN Creatinine Est GFR ( Amer) Est GFR (Non-Af Amer) POC Glucose (mg/dL) 160 H Random Glucose Calcium Phosphorus Magnesium Total Bilirubin AST ALT Alkaline Phosphatase NT-Pro-B Natriuret Pep Total Protein Albumin Globulin Albumin/Globulin Ratio Procalcitonin TSH 3rd Generation Arterial Blood Potassium 4.5 Urine Color Yellow Urine Clarity Hazy Urine pH 5.0 Ur Specific [place] 1.019 Urine Protein 2+ H Urine Glucose (UA) Normal Urine Ketones Negative Urine Blood 2+ H Urine Nitrate Negative Urine Bilirubin Negative Urine Urobilinogen Normal Ur Leukocyte Esterase Neg Urine WBC (Auto) 4 Urine RBC (Auto) 8 H Ur Squamous Epith Cells < 1 Urine Bacteria Occ H Influenza Typ A,B (EIA) Ur L.pneumophila Ag Mycoplasma pneumon IgM
--- NOTE | 2018-07-08 20:08 | CP.PCM.PN ---
Subjective - Date & Time of Evaluation Date of Evaluation: 07/08/18 Time of Evaluation: 20:07 - Subjective Subjective: DIALYSIS NOTE seen on HD no uf 2k bath bp 100/60 discussed w/ icu team may neeed pressors if bp drops and/or will terminate tx. at bedside Objective - Vital Signs/Intake and Output Vital Signs (last 24 hours): Temp Pulse Resp BP Pulse Ox 97.5 F L 115 H 14 91/59 L 99 07/08/18 19:25 07/08/18 19:57 07/08/18 19:57 07/08/18 19:57 07/08/18 19:57 Intake and Output: 07/08/18 07/09/18 18:59 06:59 Intake Total 710 60 Output Total 235 Balance 475 60 - Medications Medications: Current Medications Acetaminophen (Tylenol 325mg Tab) 650 mg PO Q6H PRN PRN Reason: Pain, moderate (4-7) Last Admin: 07/07/18 20:24 Dose: 650 mg Albuterol/Ipratropium (Duoneb 3 Mg/0.5 Mg (3 Ml) Ud) 3 ml INH RQ6 PRN PRN Reason: Wheezing Last Admin: 07/07/18 19:29 Dose: 3 ml Albuterol/Ipratropium (Duoneb 3 Mg/0.5 Mg (3 Ml) Ud) 3 ml INH RQ6 [facility]OLO Last Admin: 07/08/18 19:36 Dose: 3 ml Dextrose (Dextrose 50% Inj) 0 ml IV STAT PRN; Protocol PRN Reason: Hypoglycemia Protocol Dextrose (Glutose 15) 0 gm PO ONCE PRN; Protocol PRN Reason: Hypoglycemia Protocol Glucagon (Glucagen Diagnostic Kit) 0 mg IM STAT PRN; Protocol PRN Reason: Hypoglycemia Protocol Guaifenesin (Mucinex La) 600 mg PO BID [facility] Heparin Sodium (Porcine) (Heparin) 5,000 units SC Q8 [facility] Ceftriaxone Sodium 1 gm/ (Sodium Chloride) 100 mls @ 100 mls/hr IVPB DAILY [facility]; Protocol Last Admin: 07/08/18 10:46 Dose: 100 mls/hr Azithromycin 500 mg/ Sodium (Chloride) 250 mls @ 250 mls/hr IVPB DAILY [facility]; Protocol Last Admin: 07/08/18 10:47 Dose: 250 mls/hr Dextrose (Dextrose 5% In Water 1000 Ml) 1,000 mls @ 0 mls/hr IV .Q0M PRN; Protocol PRN Reason: Hypoglycemia Protocol Sodium Bicarbonate 75 meq/ (Sodium Chloride) 1,075 mls @ 60 mls/hr IV .[id number] ONE Stop: 07/09/18 06:37 Last Admin: 07/08/18 13:21 Dose: 60 mls/hr Fentanyl Citrate 2,500 mcg/ (Sodium Chloride) 250 mls @ 10.07 mls/hr IV .Q24H [facility]; Protocol Last Admin: 07/08/18 20:03 Dose: 0.99 mcg/kg/hr, 5 mls/hr Insulin Aspart (Novolog) 0 unit SC ACHS MAN[facility]O; Protocol Last Admin: 07/08/18 12:00 Dose: Not Given Lactobacillus Acidophilus (Bacid Acidophilus) 1 cap PO Q12H [facility] Ondansetron HCl (Zofran Inj) 4 mg IVP Q6H PRN PRN Reason: Nausea/Vomiting Last Admin: 07/08/18 13:06 Dose: 4 mg Pantoprazole Sodium (Protonix Inj) 40 mg IVP BID [facility] Last Admin: 07/08/18 09:36 Dose: 40 mg Sodium Bicarbonate (Sodium Bicarbonate Tab) 650 mg PO Q6 [facility]O Last Admin: 07/08/18 13:06 Dose: Not Given Sodium Bicarbonate (Sodium Bicarbonate Tab) 1,300 mg PO ONCE ONE Stop: 07/08/18 23:34 Last Admin: 07/08/18 00:30 Dose: 1,300 mg - Labs Labs: 07/08/18 06:21
[2018-07-08] MEDS: Phenylephrine 30 MG in Sodium Chloride 0.9% 250 ML IV PRN (20:50)
[2018-07-08 22:47] LABS: ARTERIAL BLOOD GAS HCO3 17.8 mmol/L (21-28); ARTERIAL BLOOD GAS O2 SAT 64.7 % (95-98); ARTERIAL BLOOD GAS PCO2 25 mm/Hg (35-45); ARTERIAL BLOOD GAS PO2 27 mm/Hg (80-100); ARTERIAL BLOOD GAS TCO2 16.3 mmol/L (22-28)
[2018-07-08 23:24] LABS: CALCIUM 7.2 mg/dl (8.6-10.4)
[2018-07-08 23:31] LABS: COMPLEMENT C4 19.8 mg/dL (14.0-44.0)
[2018-07-09] MEDS: Phenylephrine 30 MG in Sodium Chloride 0.9% 250 ML IV PRN ×4 (00:30→15:56)
[2018-07-09] MEDS: Vasopressin 40 UNITS in Dextrose 5% In Water 40 ML IV SCH ×3 (00:31→18:21)
[2018-07-09] MEDS: (Novolog) Insulin Aspart, Recombinant 100 u/ml 10 ml vial SC SCH ×4 (00:44→18:10)
[2018-07-09] MEDS: Piperacillin/Tazobact 2.25 GM in Sodium Chloride 100 ML IVPB SCH ×2 (01:00→08:18)
[2018-07-09 05:57] LABS: ABG ALLEN TEST POS; ARTERIAL BLOOD GAS HCO3 16.2 mmol/L (21-28); ARTERIAL BLOOD GAS HEMOGLOBIN 9.6 g/dL (11.7-17.4); ARTERIAL BLOOD GAS O2 SAT 95.5 % (95-98); ARTERIAL BLOOD GAS PCO2 36 mm/Hg (35-45); ARTERIAL BLOOD GAS PH 7.24 (7.35-7.45); ARTERIAL BLOOD GAS PO2 69 mm/Hg (80-100); ARTERIAL BLOOD GAS TCO2 16.5 mmol/L (22-28)
[2018-07-09 06:39] LABS: RBC 3.33 Mil/uL (3.80-5.20); WHITE BLOOD COUNT 15.9 K/uL (4.8-10.8)
[2018-07-09 06:40] LABS: BASO % 0.2 % (0.0-2.0); EOS % 0.1 % (0.0-4.0); HEMOGLOBIN 9.8 g/dL (11.0-16.0); LYMPH # 1.1 K/uL (1.0-4.3); LYMPH % 7.2 % (20.0-40.0); MEAN CELL VOLUME 89.5 fL (81.0-99.0); MEAN CORPUSCULAR HEMOGLOBIN 29.5 pg (27.0-31.0); MEAN CORPUSCULAR HGB CONC 32.9 g/dL (33.0-37.0); MEAN PLATELET VOLUME 8.9 fL (7.2-11.7); MONO # 0.5 K/uL (0.0-0.8); NEUT # 14.3 K/uL (1.8-7.0); NEUT % 89.5 % (50.0-75.0); NRBC % 0.1 % (0.0-2.0); PLATELET COUNT 226 K/uL (130-400); RED CELL DISTRIBUTION WIDTH 15.8 % (11.5-14.5)
[2018-07-09 07:05] LABS: ALBUMIN 2.5 g/dL (3.5-5.0)
--- NOTE | 2018-07-09 07:47 | CP.PCM.PN ---
Subjective - Date & Time of Evaluation Date of Evaluation: 07/09/18 Time of Evaluation: 07:40 - Subjective Subjective: Medical Attending Note: Patient seen and examined at bedside. Patient is currently on 2 pressor, on Fentanyl, on Zosyn, intubated, and unable to ROS secondary to clinical condition. No family present at bedside. Objective - Vital Signs/Intake and Output Vital Signs (last 24 hours): Temp Pulse Resp BP Pulse Ox 99.3 F 77 20 128/70 100 07/09/18 00:00 07/09/18 04:47 07/09/18 04:47 07/09/18 04:47 07/09/18 04:47 Intake and Output: 07/09/18 07/09/18 06:59 18:59 Intake Total 1641.6 Output Total 80 Balance 1561.6 - Medications Medications: Current Medications Acetaminophen (Tylenol 325mg Tab) 650 mg PO Q6H PRN PRN Reason: Pain, moderate (4-7) Last Admin: 07/07/18 20:24 Dose: 650 mg Albuterol/Ipratropium (Duoneb 3 Mg/0.5 Mg (3 Ml) Ud) 3 ml INH RQ6 PRN PRN Reason: Wheezing Last Admin: 07/07/18 19:29 Dose: 3 ml Albuterol/Ipratropium (Duoneb 3 Mg/0.5 Mg (3 Ml) Ud) 3 ml INH RQ6 [facility] Last Admin: 07/08/18 19:36 Dose: 3 ml Dextrose (Dextrose 50% Inj) 0 ml IV STAT PRN; Protocol PRN Reason: Hypoglycemia Protocol Dextrose (Glutose 15) 0 gm PO ONCE PRN; Protocol PRN Reason: Hypoglycemia Protocol Glucagon (Glucagen Diagnostic Kit) 0 mg IM STAT PRN; Protocol PRN Reason: Hypoglycemia Protocol Heparin Sodium (Porcine) (Heparin) 5,000 units SC Q8 [facility] Last Admin: 07/08/18 22:19 Dose: 5,000 units Hydrocortisone Sodium Succinate (Solu-Cortef) 100 mg IV Q8H [facility] Azithromycin 500 mg/ Sodium (Chloride) 250 mls @ 250 mls/hr IVPB DAILY [facility]; Pr otocol Last Admin: 07/08/18 10:47 Dose: 250 mls/hr Dextrose (Dextrose 5% In Water 1000 Ml) 1,000 mls @ 0 mls/hr IV .Q0M PRN; Protocol PRN Reason: Hypoglycemia Protocol Fentanyl Citrate 2,500 mcg/ (Sodium Chloride) 250 mls @ 10.07 mls/hr IV .Q24H [facility]; Protocol Last Titration: 07/09/18 02:30 Dose: 3 mcg/kg/hr, 15.1 mls/hr Phenylephrine HCl 30 mg/ (Sodium Chloride) 253 mls @ 10.12 mls/hr IV .Q24H PRN; Protocol PRN Reason: TITRATE PER MD ORDER Last Admin: 07/09/18 04:47 Dose: 98.81 mcg/min, 50 mls/hr Norepinephrine Bitartrate 8 mg (/ Dextrose) 258 mls @ 7.74 mls/hr IV .Q24H PRN; Protocol PRN Reason: TITRATE PER MD ORDER Last Titration: 07/09/18 01:30 Dose: 9.56 mcg/min, 18.5 mls/hr Vasopressin 40 units/ Dextrose 42 mls @ 2.52 mls/hr IV .[id number] [facility] Last Admin: 07/09/18 00:31 Dose: 2.52 mls/hr Piperacillin Sod/Tazobactam (Sod 2.25 gm/ Sodium Chloride) 100 mls @ 200 mls/hr IVPB Q8H [facility]; Protocol Last Admin: 07/09/18 01:00 Dose: 200 mls/hr Insulin Aspart (Novolog) 0 unit SC Q6 [facility]; Protocol Last Admin: 07/09/18 00:44 Dose: Not Given Lactobacillus Acidophilus (Bacid Acidophilus) 1 cap PO Q12H [facility] Last Admin: 07/08/18 22:20 Dose: 1 cap Ondansetron HCl (Zofran Inj) 4 mg IVP Q6H PRN PRN Reason: Nausea/Vomiting Last Admin: 07/08/18 13:06 Dose: 4 mg Pantoprazole Sodium (Protonix Inj) 40 mg IVP BID [facility] Last Admin: 07/08/18 20:45 Dose: 40 mg Sodium Bicarbonate (Sodium Bicarbonate Tab) 650 mg PO Q6 [facility] Last Admin: 07/09/18 06:27 Dose: 650 mg - Labs Labs: 07/09/18 06:35 07/09/18 06:35 - Constitutional Appears: Chronically Ill - Head Exam Head Exam: NORMAL INSPECTION Additional comments: intubated, on vent, OGT tube - Eye Exam Eye Exam: EOMI - ENT Exam ENT Exam: Mucous Membranes Dry - Respiratory Exam Respiratory Exam: Decreased Breath Sounds. absent: Rales, Wheezes Additional comments: intubated on vent - Cardiovascular Exam Cardiovascular Exam: REGULAR RHYTHM, +S1, +S2 - GI/Abdominal Exam GI & Abdominal Exam: Soft, Normal Bowel Sounds. absent: Distended, Firm, Guarding, Rigid, Tenderness, Rebound - Extremities Exam Extremities Exam: absent: Pedal Edema, Tenderness - Skin Skin Exam: Dry, Intact, Normal Color, Warm Assessment and Plan (1) Septic shock Status: Acute (2) Acute respiratory failure Status: Acute (3) Urinary tract infection Status: Acute (4) Acute renal failure Status: Acute (5) Aspiration pneumonia Status: Acute (6) Diabetes mellitus Status: Chronic (7) Prophylactic measure Status: Acute Attending/Attestation - Attestation I have personally seen and examined this patient.: Yes I have fully participated in the care of the patient.: Yes I have reviewed all pertinent clinical information, including history, physical exam and plan: Yes Notes (Text): 1) Septic Shock Assessment/Plan * Criteria: leukocytosis, tachycardia * Source: aspiration pneumonia and urinary tract infection * 07/07/18: Urine: Gram negative Daniel * 07/07/18: blood culture: no growth after 24 hours X2 * Azithromycin 500mg IVPB Q daily (active since 07/08/18) * Zosyn 2.25 IVPB Q8H (active since 07/08/18) * On 3 pressors 2) Acute Respiratory Failure Assessment/Plan * intubated * Solcortef 100mg OV Q8H * Duonebs RQ6H PRN wheezing * Duonebs RQ6H * Sputum culture pending * MRSA screen pending 3) Urinary Tract Infection Assessment/Plan * 07/07/18: Urine: Gram negative Daniel * Zosyn 2.25 IVPB Q8H (active since 07/08/18) 4) Aspiration Pneumonia Assessment/Plan * Zosyn 2.25 IVPB Q8H (active since 07/08/18) * Azithromycin 500mg IVPB Q daily (active since 07/08/18) 5) Diabetes Assessment/Plan * pending a1c * hypoglycemic protocol * novolog unit subq 6) Acute on Chronic Renal Failure Assessment/Plan * Nephrology (Dr. Hyde) on board--> help appreciated * on Sodium bicarbonate tabs 650mg PO q^H * underwent first dialysis yesterday; no urine output 7) Prophylactic measure * Protonix 40mg IV Q12H * Heparin 5000 units subq8H * On 3 pressors * on Fentanyl drip
[2018-07-09] MEDS: Albuterol-Ipratrop 3 mg / 0.5 (3 ml) UD INH SCH ×4 (08:01→19:08)
[2018-07-09] MEDS: Lactobacillus Acidophilus 500 MU Cap PO SCH ×2 (08:18→21:15)
[2018-07-09] MEDS ORDERED: SODIUM CHLORIDE 0.45% IV SCH (08:30)
[2018-07-09] MEDS ORDERED: SODIUM BICARBONATE IV SCH (08:30)
[2018-07-09] MEDS ORDERED: Sodium Bicarbonate 8.4% 150 MEQ in Sodium Chloride 0.45% 850 ML IV SCH (09:30)
[2018-07-09 09:33] LABS: BANDS 17 % (0-2); LYMPHOCYTE 7 % (20-40); MONOCYTE 4 % (0-10); NEUTROPHIL 72 % (50-75); TOTAL CELLS COUNTED 100
[2018-07-09 09:34] LABS: ANISOCYTOSIS SLIGHT; HYPOCHROMIC SLIGHT; PLATELET ESTIMATE NORMAL (NORMAL); POIKILOCYTOSIS SLIGHT; POLYCHROMIC SLIGHT
[2018-07-09 09:35] LABS: LARGE PLATELETS PRESENT; MICROCYTOSIS SLIGHT; OVALOCYTES SLIGHT
--- NOTE | 2018-07-09 09:51 | RAD ---
Date of service: 07/08/2018 HISTORY: Central line COMPARISON: Comparison chest 07/08/2018 at 14:38 hours FINDINGS: In situ ETT, tip of which lies approximately 2.5 cm above key. In situ NGT, the tip of which has not been included on this film though distal aspect does lie well below EG junction. Apparent right-sided effusion.. Right IJ central line with tip in the SVC/RA junction. LUNGS: Patchy infiltrate changes throughout the right lung as well as left upper lobe and perihilar region. PLEURA: As above. No pneumothorax apparent. CARDIOVASCULAR: Normal. OSSEOUS STRUCTURES: No significant abnormalities. VISUALIZED UPPER ABDOMEN: Normal. OTHER FINDINGS: None. IMPRESSION: Support lines and tubes as above. Patchy infiltrate changes throughout the right lung as well as left upper lobe and perihilar region. Right-sided effusion.
--- NOTE | 2018-07-09 09:59 | RAD ---
Date of service: 07/09/2018 HISTORY: s/p intubation COMPARISON: Comparison chest 07/08/2018 at 1827 hr FINDINGS: In situ ETT, tip of which lies approximately 3.7 cm above key. NGT tip lies left upper/mid abdomen. Right IJ central line with tip in the SVC.. LUNGS: Diffuse patchy bilateral infiltrates and bilateral effusions. PLEURA: No significant pleural effusion identified, no pneumothorax apparent. CARDIOVASCULAR: Normal. OSSEOUS STRUCTURES: No significant abnormalities. VISUALIZED UPPER ABDOMEN: Normal. OTHER FINDINGS: None. IMPRESSION: Support lines and tubes as above. Diffuse patchy bilateral infiltrates and bilateral effusions
[2018-07-09] MEDS: Azithromycin 500 MG in Sodium Chloride 0.9% 250 ML IVPB SCH (10:24)
--- NOTE | 2018-07-09 11:01 | CP.PCM.PN ---
Subjective - Date & Time of Evaluation Date of Evaluation: 07/09/18 Time of Evaluation: 10:59 - Subjective Subjective: RENAL FOLLOWUP S: seen and examined, now on 3 pressors and sedated pe: vs as below gen: intubated and sedated sclera: anicteric op: et tube neck: supple no thyromegaly cv:+s1+s2 no rub, tachy lungs: coarse bs b/l abd: soft, nt/ + bs , no organomegaly ext: 1+ edema neuro: sedated psych: sedated skin no rash labs and imaging reviewed imp: ARF/hyperkalemia/metabolic acidosis/ sepsis/ hypoxic respiratory failure plan: seun - seems most consistent w/ sepsis related atn. GN workup ordered - thus far work up negative. GNR bacteremia on abx per primary team. Unable to diaylze today given hemodynamic instability agree w/ hco3 gtt fo rnow will reeval when more stable k stable today vent wean per primary abx per primary dose for reduced egfr pt critically ill discussed w/ ICU team Objective - Vital Signs/Intake and Output Vital Signs (last 24 hours): Temp Pulse Resp BP Pulse Ox 99.4 F 87 20 100/54 L 96 07/09/18 08:00 07/09/18 10:30 07/09/18 10:30 07/09/18 10:30 07/09/18 10:30 Intake and Output: 07/09/18 07/09/18 06:59 18:59 Intake Total 1994.6 624.5 Output Total 110 55 Balance 1884.6 569.5 - Medications Medications: Current Medications Acetaminophen (Tylenol 325mg Tab) 650 mg PO Q6H PRN PRN Reason: Pain, moderate (4-7) Last Admin: 07/07/18 20:24 Dose: 650 mg Albuterol/Ipratropium (Duoneb 3 Mg/0.5 Mg (3 Ml) Ud) 3 ml INH RQ6 PRN PRN Reason: Wheezing Last Admin: 07/07/18 19:29 Dose: 3 ml Albuterol/Ipratropium (Duoneb 3 Mg/0.5 Mg (3 Ml) Ud) 3 ml INH RQ6 [facility] Last Admin: 07/09/18 08:01 Dose: 3 ml Dextrose (Dextrose 50% Inj) 0 ml IV STAT PRN; Protocol PRN Reason: Hypoglycemia Protocol Dextrose (Glutose 15) 0 gm PO ONCE PRN; Protocol PRN Reason: Hypoglycemia Protocol Glucagon (Glucagen Diagnostic Kit) 0 mg IM STAT PRN; Protocol PRN Reason: Hypoglycemia Protocol Heparin Sodium (Porcine) (Heparin) 5,000 units SC Q8 [facility] Last Admin: 07/09/18 07:30 Dose: 5,000 units Hydrocortisone Sodium Succinate (Solu-Cortef) 100 mg IV Q8H [facility] Last Admin: 07/09/18 08:17 Dose: 100 mg Azithromycin 500 mg/ Sodium (Chloride) 250 mls @ 250 mls/hr IVPB DAILY [facility]; Protocol Last Admin: 07/09/18 10:24 Dose: 250 mls/hr Dextrose (Dextrose 5% In Water 1000 Ml) 1,000 mls @ 0 mls/hr IV .Q0M PRN; Protocol PRN Reason: Hypoglycemia Protocol Fentanyl Citrate 2,500 mcg/ (Sodium Chloride) 250 mls @ 10.07 mls/hr IV .Q24H [facility]; Protocol Last Titration: 07/09/18 03:30 Dose: 4.96 mcg/kg/hr, 24.97 mls/hr Phenylephrine HCl 30 mg/ (Sodium Chloride) 253 mls @ 10.12 mls/hr IV .Q24H PRN; Protocol PRN Reason: TITRATE PER MD ORDER Last Admin: 07/09/18 10:30 Dose: 98.81 mcg/min, 50 mls/hr Norepinephrine Bitartrate 8 mg (/ Dextrose) 258 mls @ 7.74 mls/hr IV .Q24H PRN; Protocol PRN Reason: TITRATE PER MD ORDER Last Titration: 07/09/18 03:00 Dose: 6.77 mcg/min, 13.1 mls/hr Vasopressin 40 units/ Dextrose 42 mls @ 2.52 mls/hr IV .[id number] [facility] Last Admin: 07/09/18 00:31 Dose: 2.52 mls/hr Piperacillin Sod/Tazobactam (Sod 2.25 gm/ Sodium Chloride) 100 mls @ 200 mls/hr IVPB Q8H [facility]; Protocol Last Admin: 07/09/18 08:18 Dose: 200 mls/hr Sodium Bicarbonate 150 meq/ (Sodium Chloride) 1,000 mls @ 100 mls/hr IV .Q10H [facility] Last Admin: 07/09/18 09:39 Dose: 100 mls/hr Insulin Aspart (Novolog) 0 unit SC Q6 [facility]; Protocol Last Admin: 07/09/18 06:00 Dose: Not Given Lactobacillus Acidophilus (Bacid Acidophilus) 1 cap PO Q12H [facility] Last Admin: 07/09/18 08:18 Dose: 1 cap Ondansetron HCl (Zofran Inj) 4 mg IVP Q6H PRN PRN Reason: Nausea/Vomiting Last Admin: 07/08/18 13:06 Dose: 4 mg Pantoprazole Sodium (Protonix Inj) 40 mg IVP BID [facility] Last Admin: 07/09/18 10:35 Dose: 40 mg Sodium Bicarbonate (Sodium Bicarbonate Tab) 650 mg PO Q6 [facility] Last Admin: 07/09/18 06:27 Dose: 650 mg - Labs Labs: 07/09/18 06:35 07/09/18 06:35
[2018-07-09] MEDS ORDERED: Meropenem 1 GM in Sodium Chloride 0.9% 100 ML IVPB ONE ×2 (12:02→12:30)
[2018-07-09] MEDS: Sodium Bicarbonate 8.4% 150 MEQ in Sodium Chloride 0.45% 850 ML IV SCH ×3 (12:02→21:24)
[2018-07-09] MEDS ORDERED: Meropenem 500 MG in Sodium Chloride 0.9% 100 ML IVPB SCH (12:15)
--- NOTE | 2018-07-09 12:57 | PCM.PROC ---
Procedures Attestation:: I certify that I have explained the specified Operation(s) or Procedure(s), risks, benefits and reasonable alternatives to the Patient and/or other person responsible. The opportunity was given to ask questions and all questions answered - Central Line Placement Left Femoral Triple Lumen Catheter Aseptic technique was employed throughout the procedure: Hand Hygiene done prior to procedure, Full sterile barriers (mask, hair cover, sterile gown, sterile gloves), Full body sterile drape, Chloraprep Antiseptic: 2 minute prep for Femoral CVP Time Out Performed: Yes Pt. Placed on Pulse Ox Monitor: Yes Central Line Prep: Chlorhexidine-Alcohol Combination Local Anesthesia Used: Lidocaine 1% Amount of Anesthesia Used (mls): 5 Ultrasound Used for Placement: Yes Central Line Lumen Inserted: triple Central Line Length: 20 cm Post Procedure: Sutured in Place, Good Blood Return, All Ports Aspirated, Flushed, Capped, Sterile Dressing Applied Secured by: Suture Post procedure dressing: Clear vapor permeable, Chlorhexidine disc (Biopatch) Post Procedure X-Ray: No Patient Tolerated Procedure: Well, No Complications Immediate Complications: None
[2018-07-09] MEDS ORDERED: Gentamicin 100mg/100ml NS 100 MG/100 ML BAG IVPB ONE (14:00)
--- NOTE | 2018-07-09 15:03 | CP.PCM.CON ---
History of Present Illness - History of Present Illness History of Present Illness: 52 yo female with hx of DM was admitted to for generalized weakness and cough as well as vomiting x 2 weeks which did not improve after recent ER visit ID consulted for severe sepsis with multiorgan system failure. Now in ICU on 3 pressors, Fentanyl drip , as well as bicarb infusion , intubated on mechanical ventilation requiring HD She was originally seen for similar complaints that on 07/03/18 in the ER where a urine culture revealed E Coli sensitive to bactrim which she was discharged on. Her CXR and Blood cultures were neg at that time as was her Influenza screen There is no significant travel history Unfortunately the patient cant provide any details of her illness at this time PMH- DM Surgical hx- bilat oophorectomy SH- non smoker NKDA FH - unknown Review of Systems - Review of Systems Systems not reviewed;Unavailable: Altered Mental Status, Intubated All systems: reviewed and no additional remarkable complaints except - Constitutional Constitutional: As Per HPI - EENT Eyes: absent: As Per HPI, Blind Spots, Blurred Vision, Change in Vision, Decreased Night Vision, Diplopia, Discharge, Dry Eye, Exophthalmos, Floaters, Irritation, Itchy Eyes, Loss of Peripheral Vision, Pain, Photophobia, Requires Corrective Lenses, Sees Flashes, Spots in Vision, Tunnel Vision, Other Visual Disturbances, Loss of Vision, Other Ears: absent: As Per HPI, Decreased Hearing, Ear Discharge, Ear Pain, Tinnitus, Abnormal Hearing, Disequilibrium, Dizziness, Other Nose/Mouth/Throat: absent: As Per HPI, Epistaxis, Nasal Congestion, Nasal Discharge, Nasal Obstruction, Nasal Trauma, Nose Pain, Post Nasal Drip, Sinus Pain, Sinus Pressure, Bleeding Gums, Change in Voice, Dental Pain, Dry Mouth, Dy sphagia, Halitosis, Hoarsness, Lip Swelling, Mouth Lesions, Mouth Pain, Odynophagia, Sore Throat, Throat Swelling, Tongue Swelling, Facial Pain, Neck Pain, Neck Mass, Other - Breasts Breasts: absent: As Per HPI, Change in Shape, Mass, Pain, Nipple Discharge, Ni pple Inversion, Skin Changes, Swelling, Other - Cardiovascular Cardiovascular: absent: As Per HPI, Acrocyanosis, Chest Pain, Chest Pain at Rest, Chest Pain with Activity, Claudication, Diaphoresis, Dyspnea, Dyspnea on Exertion, Edema, Irregular Heart Rhythm, Pain Radiating to Arm/Neck/Jaw, Leg Edema, Leg Ulcers, Lightheadedness, Orthopnea, Palpitations, Paroxysmal Nocturnal Dyspnea, Pedal Edema, Radiating Pain, Rapid Heart Rate, Slow Heart Rate, Syncope, Other - Respiratory Respiratory: As Per HPI - Gastrointestinal Gastrointestinal: As Per HPI - Genitourinary Genitourinary: As Per HPI - Reproductive: Female Reproductive:Female: As Per HPI - Menstruation Menstruation: absent: As Per HPI, Amenorrhea, Amenorrhea/ Control, Currently Menstual, Cycle <21 Days, Cycle >35 Days, Cycle Variable, Menses 1-7 Days, Menses >/= 8 Days, Menses Variable, Cycle > 4 Weeks Between, No Menses for 6 Months, Heavy Menses, Light Menses, Normal Menses, Spotting Between Cycles, S/P Hysterectomy, Menopausal, Post Menopausal, Premenarche, Abnormal Vaginal Bleeding, Dysmenorrhea, Other - Musculoskeletal Musculoskeletal: absent: As Per HPI, Abnormal Gait, Arthralgias, Atrophy, Back Pain, Deformity, Joint Swelling, Limited Range of Motion, Loss of Height, Muscle Cramps, Muscle Weakness, Myalgias, Neck Pain, Numbness, Radiating Pain into Limb, Stiffness, Tingling, Other - Integumentary Integumentary: absent: As Per HPI, Acne, Alopecia, Bleeding Lesions, Change in Hair, Change in Nails, Change in Pigmentation, Changing Lesions, Dry Skin, Erythema, Furuncle, Hirsutism, Lesions, New Lesions, Non-Healing Lesions, Photosensitivity, Pruritus, Rash, Skin Pain, Skin Ulcer, Sores, Striae, Swell ing, Unusual Bruising, Wounds, Jaundice, Other - Neurological Neurological: absent: As Per HPI, Abnormal Gait, Abnormal Hearing, Abnormal Movements, Abnormal Speech, Behavioral Changes, Burning Sensations, Confusion, Convulsions, Disequilibrium, Dizziness, Numbness, Focal Weakness, Frequent Falls, Headaches, Lack of Coordination, Loss of Vision, Memory Loss, Paresthesias, Radicular Pain, Restless Legs, Sensory Deficit, Syncope, Tingling, Tremor, Vertigo, Weakness, Other Visual Disturbances, Other - Psychiatric Psychiatric: absent: As Per HPI, Abnormal Sleep Pattern, Anhedonia, Anxiety, Auditory Hallucinations, Behavioral Changes, Change in Appetite, Change in Libido, Confusion, Depression, Difficulty Concentrating, Hallucinations, Homicidal Ideation, Hopelessness, Irritability, Memory Loss, Mood Swings, Panic Attacks, Paranoia, Suicidal Ideation, Visual Hallucinations, Tactile Hallucinations, Other - Endocrine Endocrine: As Per HPI - Hematologic/Lymphatic Hematologic: absent: As Per HPI, Easy Bleeding, Easy Bruising, Lymphadenopathy, Other Past Patient History - Tetanus Immunizations Tetanus Immunization: Unknown - Past Medical History & Family History Past Family History: Reviewed and not pertinent - Past Social History Smoking Status: Never Smoked Alcohol: None Drugs: Denies Home Situation {Lives}: With Family - CARDIAC Hx Hypercholesterolemia: Yes - PULMONARY Hx Respiratory Disorders: No - NEUROLOGICAL Hx Neurological Disorder: No - HEENT Hx HEENT Problems: No - RENAL Hx Chronic Kidney Disease: No - ENDOCRINE/METABOLIC Hx Endocrine Disorders: Yes Hx Diabetes Mellitus Type 1: Yes - HEMATOLOGICAL/ONCOLOGICAL Hx Blood Disorders: No - INTEGUMENTARY Hx Dermatological Problems: No - MUSCULOSKELETAL/RHEUMATOLOGICAL Hx Musculoskeletal Disorders: No Hx Falls: No - GASTROINTESTINAL Hx Gastrointestinal Disorders: No - GENITOURINARY/GYNECOLOGICAL Hx Genitourinary Disorders: No - PSYCHIATRIC Hx Substance Use: No - SURGICAL HISTORY Other/Comment: removal of ovaries - ANESTHESIA Hx Anesthesia: Yes Hx Anesthesia Reactions: No Hx Malignant Hyperthermia: No Meds Allergies/Adverse Reactions: Allergies Allergy/AdvReac Type Severity Reaction Status Date / Time No Known Allergies Allergy Unverified 07/03/18 23:36 - Medications Medications: Current Medications Acetaminophen (Tylenol 325mg Tab) 650 mg PO Q6H PRN PRN Reason: Pain, moderate (4-7) Last Admin: 07/07/18 20:24 Dose: 650 mg Albuterol/Ipratropium (Duoneb 3 Mg/0.5 Mg (3 Ml) Ud) 3 ml INH RQ6 PRN PRN Reason: Wheezing Last Admin: 07/07/18 19:29 Dose: 3 ml Albuterol/Ipratropium (Duoneb 3 Mg/0.5 Mg (3 Ml) Ud) 3 ml INH RQ4 [facility] Last Admin: 07/09/18 13:08 Dose: Not Given Dextrose (Dextrose 50% Inj) 0 ml IV STAT PRN; Protocol PRN Reason: Hypoglycemia Protocol Dextrose (Glutose 15) 0 gm PO ONCE PRN; Protocol PRN Reason: Hypoglycemia Protocol Glucagon (Glucagen Diagnostic Kit) 0 mg IM STAT PRN; Protocol PRN Reason: Hypoglycemia Protocol Heparin Sodium (Porcine) (Heparin) 5,000 units SC Q8 [facility] Last Admin: 07/09/18 14:57 Dose: 5,000 units Hydrocortisone Sodium Succinate (Solu-Cortef) 100 mg IV Q8H [facility] Last Admin: 07/09/18 08:17 Dose: 100 mg Azithromycin 500 mg/ Sodium (Chloride) 250 mls @ 250 mls/hr IVPB DAILY [facility]; Protocol Last Admin: 07/09/18 10:24 Dose: 250 mls/hr Dextrose (Dextrose 5% In Water 1000 Ml) 1,000 mls @ 0 mls/hr IV .Q0M PRN; Protocol PRN Reason: Hypoglycemia Protocol Fentanyl Citrate 2,500 mcg/ (Sodium Chloride) 250 mls @ 10.07 mls/hr IV .Q24H [facility]; Protocol Last Admin: 07/09/18 13:27 Dose: 4.96 mcg/kg/hr, 24.97 mls/hr Phenylephrine HCl 30 mg/ (Sodium Chloride) 253 mls @ 10.12 mls/hr IV .Q24H PRN; Protocol PRN Reason: TITRATE PER MD ORDER Last Admin: 07/09/18 10:30 Dose: 98.81 mcg/min, 50 mls/hr Norepinephrine Bitartrate 8 mg (/ Dextrose) 258 mls @ 7.74 mls/hr IV .Q24H PRN; Protocol PRN Reason: TITRATE PER MD ORDER Last Titration: 07/09/18 12:23 Dose: 15 mcg/min, 29.03 mls/hr Vasopressin 40 units/ Dextrose 42 mls @ 2.52 mls/hr IV .[id number] [facility] Last Admin: 07/09/18 00:31 Dose: 2.52 mls/hr Sodium Bicarbonate 150 meq/ (Sodium Chloride) 1,000 mls @ 125 mls/hr IV .Q8H [facility] Last Admin: 07/09/18 12:02 Dose: 125 mls/hr Meropenem 500 mg/ Sodium (Chloride) 100 mls @ 100 mls/hr IVPB Q12H [facility]; Protocol Insulin Aspart (Novolog) 0 unit SC Q6 [facility]; Protocol Last Admin: 07/09/18 12:14 Dose: 1 u Lactobacillus Acidophilus (Bacid Acidophilus) 1 cap PO Q12H [facility] Last Admin: 07/09/18 08:18 Dose: 1 cap Ondansetron HCl (Zofran Inj) 4 mg IVP Q6H PRN PRN Reason: Nausea/Vomiting Last Admin: 07/08/18 13:06 Dose: 4 mg Pantoprazole Sodium (Protonix Inj) 40 mg IVP BID [facility] Last Admin: 07/09/18 10:35 Dose: 40 mg Physical Exam - Constitutional Appears: Confused, Chronically Ill - Head Exam Head Exam: ATRAUMATIC, NORMAL INSPECTION, NORMOCEPHALIC - Eye Exam Eye Exam: EOMI. absent: Scleral icterus - ENT Exam ENT Exam: Mucous Membranes Dry, Normal External Ear Exam. absent: Normal Oropharynx Additional comments: ETT + - Neck Exam Neck exam: Positive for: Full Rom. Negative for: Lymphadenopathy, Meningismus, Thyromegaly - Respiratory Exam Respiratory Exam: Decreased Breath Sounds, Prolonged Expiratory Phase, Rales - Cardiovascular Exam Cardiovascular Exam: Tachycardia, REGULAR RHYTHM, +S1, +S2 - GI/Abdominal Exam GI & Abdominal Exam: Diminished Bowel Sounds, Distended, Soft. absent: Guarding, Rebound, Rigid, Tenderness - Rectal Exam Rectal Exam: Deferred - Exam Exam: NORMAL INSPECTION - Extremities Exam Extremities exam: Positive for: pedal pulses present. Negative for: pedal edema - Back Exam Back exam: absent: CVA tenderness (L), CVA tenderness (R), paraspinal tenderness - Neurological Exam Neurological exam: Altered - Psychiatric Exam Psychiatric exam: Depressed Results - Vital Signs Recent Vital Signs: Last Vital Signs Temp 99.4 F 07/09/18 08:00 Pulse 94 H 07/09/18 14:50 Resp 18 07/09/18 14:50 BP 114/61 07/09/18 14:02 Pulse Ox 95 07/09/18 14:50 - Labs Result Diagrams: 07/09/18 06:35 07/09/18 06:35 Labs: Laboratory Results - last 24 hr 07/08/18 07/08/18 07/08/18 15:35 16:31 16:33 WBC RBC Hgb Hct MCV MCH MCHC RDW Plt Count MPV Neut % (Auto) Lymph % (Auto) Gem % (Auto) Eos % (Auto) Baso % (Auto) Neut # (Auto) Lymph # (Auto) Gem # (Auto) Eos # (Auto) Baso # (Auto) Neutrophils % (Manual) Band Neutrophils % Lymphocytes % (Manual) Monocytes % (Manual) Platelet Estimate Large Platelets Polychromasia Hypochromasia (manual) Poikilocytosis (manual Anisocytosis (manual) Microcytosis (manual) Ovalocytes Puncture Site pCO2 pO2 HCO3 ABG pH ABG Total CO2 ABG O2 Saturation ABG Base Excess ABG Hemoglobin ABG Carboxyhemoglobin POC ABG HHb (Measured) ABG Methemoglobin Kevon Test ABG Potassium A-a O2 Difference Respiratory Index Hgb O2 Saturation Glucose Lactate Vent Mode Mechanical Rate FiO2 Tidal Volume PEEP Sodium 139 Potassium 5.8 H Chloride 111 H Carbon Dioxide 12 L Anion Gap 21 H BUN 29 H Creatinine 2.4 H Est GFR ( Amer) 26 Est GFR (Non-Af Amer) 21 POC Glucose (mg/dL) 160 H Random Glucose 137 H Calcium 6.9 L Phosphorus Magnesium Total Bilirubin AST ALT Alkaline Phosphatase Total Creatine Kinase Total Protein Albumin Globulin Albumin/Globulin Ratio Arterial Blood Potassium Urine Color Yellow Urine Clarity Hazy Urine pH 5.0 Ur Specific [place] 1.019 Urine Protein 2+ H Urine Glucose (UA) Normal Urine Ketones Negative Urine Blood 2+ H Urine Nitrate Negative Urine Bilirubin Negative Urine Urobilinogen Normal Ur Leukocyte Esterase Neg Urine WBC (Auto) 4 Urine RBC (Auto) 8 H Ur Squamous Epith Cells < 1 Urine Bacteria Occ H Complement C3 Complement C4 07/08/18 07/08/18 07/08/18 16:45 21:36 22:40 WBC RBC Hgb Hct MCV MCH MCHC RDW Plt Count MPV Neut % (Auto) Lymph % (Auto) Gem % (Auto) Eos % (Auto) Baso % (Auto) Neut # (Auto) Lymph # (Auto) Gem # (Auto) Eos # (Auto) Baso # (Auto) Neutrophils % (Manual) Band Neutrophils % Lymphocytes % (Manual) Monocytes % (Manual) Platelet Estimate Large Platelets Polychromasia Hypochromasia (manual) Poikilocytosis (manual Anisocytosis (manual) Microcytosis (manual) Ovalocytes Puncture Site Rradial Vein pCO2 36 25 L pO2 67 L 27 L* HCO3 14.8 L 17.8 L ABG pH 7.21 L 7.40 ABG Total CO2 15.5 L 16.3 L ABG O2 Saturation 94.7 L 64.7 L ABG Base Excess -12.6 L -7.5 L ABG Hemoglobin ABG Carboxyhemoglobin POC ABG HHb (Measured) ABG Methemoglobin Kevon Test Pos Na ABG Potassium 4.5 3.0 L A-a O2 Difference 316.0 Respiratory Index 4.7 Hgb O2 Saturation Glucose 145 H 81 Lactate 1.6 2.1 Vent Mode Prvc Mechanical Rate 14 FiO2 60.0 Tidal Volume 400 PEEP 5 Sodium 137.0 146.0 Potassium Chloride 111.0 H 120.0 H Carbon Dioxide Anion Gap BUN Creatinine Est GFR ( Amer) Est GFR (Non-Af Amer) POC Glucose (mg/dL) 105 Random Glucose Calcium Phosphorus Magnesium Total Bilirubin AST ALT Alkaline Phosphatase Total Creatine Kinase Total Protein Albumin Globulin Albumin/Globulin Ratio Arterial Blood Potassium 4.5 3.0 L Urine Color Urine Clarity Urine pH Ur Specific [place] Urine Protein Urine Glucose (UA) Urine Ketones Urine Blood Urine Nitrate Urine Bilirubin Urine Urobilinogen Ur Leukocyte Esterase Urine WBC (Auto) Urine RBC (Auto) Ur Squamous Epith Cells Urine Bacteria Complement C3 Complement C4 07/08/18 07/08/18 07/08/18 23:06 23:06 23:06 WBC RBC Hgb Hct MCV MCH MCHC RDW Plt Count MPV Neut % (Auto) Lymph % (Auto) Gem % (Auto) Eos % (Auto) Baso % (Auto) Neut # (Auto) Lymph # (Auto) Gem # (Auto) Eos # (Auto) Baso # (Auto) Neutrophils % (Manual) Band Neutrophils % Lymphocytes % (Manual) Monocytes % (Manual) Platelet Estimate Large Platelets Polychromasia Hypochromasia (manual) Poikilocytosis (manual Anisocytosis (manual) Microcytosis (manual) Ovalocytes Puncture Site pCO2 pO2 HCO3 ABG pH ABG Total CO2 ABG O2 Saturation ABG Base Excess ABG Hemoglobin ABG Carboxyhemoglobin POC ABG HHb (Measured) ABG Methemoglobin Kevon Test ABG Potassium A-a O2 Difference Respiratory Index Hgb O2 Saturation Glucose Lactate Vent Mode Mechanical Rate FiO2 Tidal Volume PEEP Sodium 139 Potassium 4.5 Chloride 106 Carbon Dioxide 20 L Anion Gap 18 BUN 16 Creatinine 1.4 H Est GFR ( Amer) 48 Est GFR (Non-Af Amer) 39 POC Glucose (mg/dL) Random Glucose 107 H Calcium 7.2 L Phosphorus Magnesium Total Bilirubin AST ALT Alkaline Phosphatase Total Creatine Kinase 1086 H Total Protein Albumin Globulin Albumin/Globulin Ratio Arterial Blood Potassium Urine Color Urine Clarity Urine pH Ur Specific [place] Urine Protein Urine Glucose (UA) Urine Ketones Urine Blood Urine Nitrate Urine Bilirubin Urine Urobilinogen Ur Leukocyte Esterase Urine WBC (Auto) Urine RBC (Auto) Ur Squamous Epith Cells Urine Bacteria Complement C3 97.0 Complement C4 19.8 07/09/18 07/09/18 07/09/18 00:33 05:35 05:51 WBC RBC Hgb Hct MCV MCH MCHC RDW Plt Count MPV Neut % (Auto) Lymph % (Auto) Gem % (Auto) Eos % (Auto) Baso % (Auto) Neut # (Auto) Lymph # (Auto) Gem # (Auto) Eos # (Auto) Baso # (Auto) Neutrophils % (Manual) Band Neutrophils % Lymphocytes % (Manual) Monocytes % (Manual) Platelet Estimate Large Platelets Polychromasia Hypochromasia (manual) Poikilocytosis (manual Anisocytosis (manual) Microcytosis (manual) Ovalocytes Puncture Site Rradial pCO2 36 pO2 69 L HCO3 16.2 L ABG pH 7.24 L ABG Total CO2 16.5 L ABG O2 Saturation 95.5 ABG Base Excess -11.1 L ABG Hemoglobin 9.6 L ABG Carboxyhemoglobin 1.8 H POC ABG HHb (Measured) 4.4 ABG Methemoglobin 0.7 Kevon Test Pos ABG Potassium A-a O2 Difference 314.0 Respiratory Index 4.6 Hgb O2 Saturation 93.1 L Glucose Lactate Vent Mode Prvc Mechanical Rate 20 FiO2 60.0 Tidal Volume 400 PEEP 5 Sodium Potassium Chloride Carbon Dioxide Anion Gap BUN Creatinine Est GFR ( Amer) Est GFR (Non-Af Amer) POC Glucose (mg/dL) 97 140 H Random Glucose Calcium Phosphorus Magnesium Total Bilirubin AST ALT Alkaline Phosphatase Total Creatine Kinase Total Protein Albumin Globulin Albumin/Globulin Ratio Arterial Blood Potassium Urine Color Urine Clarity Urine pH Ur Specific [place] Urine Protein Urine Glucose (UA) Urine Ketones Urine Blood Urine Nitrate Urine Bilirubin Urine Urobilinogen Ur Leukocyte Esterase Urine WBC (Auto) Urine RBC (Auto) Ur Squamous Epith Cells Urine Bacteria Complement C3 Complement C4 07/09/18 07/09/18 07/09/18 06:35 06:35 12:05 WBC 15.9 H D RBC 3.33 L Hgb 9.8 L Hct 29.8 L MCV 89.5 MCH 29.5 MCHC 32.9 L RDW 15.8 H Plt Count 226 MPV 8.9 Neut % (Auto) 89.5 H Lymph % (Auto) 7.2 L Gem % (Auto) 3.0 Eos % (Auto) 0.1 Baso % (Auto) 0.2 Neut # (Auto) 14.3 H Lymph # (Auto) 1.1 Gem # (Auto) 0.5 Eos # (Auto) 0.0 Baso # (Auto) 0.0 Neutrophils % (Manual) 72 Band Neutrophils % 17 H* Lymphocytes % (Manual) 7 L Monocytes % (Manual) 4 Platelet Estimate Normal Large Platelets Present Polychromasia Slight Hypochromasia (manual) Slight Poikilocytosis (manual Slight Anisocytosis (manual) Slight Microcytosis (manual) Slight Ovalocytes Slight Puncture Site pCO2 pO2 HCO3 ABG pH ABG Total CO2 ABG O2 Saturation ABG Base Excess ABG Hemoglobin ABG Carboxyhemoglobin POC ABG HHb (Measured) ABG Methemoglobin Kevon Test ABG Potassium A-a O2 Difference Respiratory Index Hgb O2 Saturation Glucose Lactate Vent Mode Mechanical Rate FiO2 Tidal Volume PEEP Sodium 141 Potassium 4.3 Chloride 107 Carbon Dioxide 15 L Anion Gap 23 H BUN 21 H Creatinine 1.9 H Est GFR ( Amer) 34 Est GFR (Non-Af Amer) 28 POC Glucose (mg/dL) 190 H Random Glucose 138 H Calcium 7.0 L Phosphorus 3.4 Magnesium 2.0 Total Bilirubin 0.9 AST 240 H D ALT 97 H D Alkaline Phosphatase 95 Total Creatine Kinase Total Protein 5.1 L Albumin 2.5 L Globulin 2.6 Albumin/Globulin Ratio 1.0 Arterial Blood Potassium Urine Color Urine Clarity Urine pH Ur Specific [place] Urine Protein Urine Glucose (UA) Urine Ketones Urine Blood Urine Nitrate Urine Bilirubin Urine Urobilinogen Ur Leukocyte Esterase Urine WBC (Auto) Urine RBC (Auto) Ur Squamous Epith Cells Urine Bacteria Complement C3 Complement C4 Assessment & Plan (1) NEHA (acute kidney injury) Status: Acute (2) Acute renal failure Status: Acute (3) Acute respiratory failure Status: Acute (4) Aspiration pneumonia Status: Acute (5) Septic shock Status: Acute (6) Urinary tract infection Status: Acute (7) Diabetes mellitus Status: Chronic - Assessment and Plan (Free Text) Assessment: 52 yo female admitted to ICU with probable Gram neg sepsis / likely UTI complicated by multiorgan system failure requiring Intubation/ mechanical ventilation, 3 pressors and emergent Hemodialysis Initial urine culture revealed richards sensitive E Coli except for quinolones CXR findings are nonspecific and could be secondary to ARDS and / or pneumonia all supportiv weasures are in place , additional cultures and serologies will be sent would consider GI eval based on presenting symptoms with elevated liver enzymes prognosis guarded for outset
--- NOTE | 2018-07-09 16:15 | CP.CCUPN ---
CCU Subjective - Physician Review Events Since Last Encounter (Free Text): 07/09/18 16:11 sedated on vent. CCU Objective - Vital Signs / Intake & Output Vital Signs (Last 4 hours): Vital Signs Pulse Resp BP Pulse Ox 07/09/18 16:05 91 H 18 126/67 93 L 07/09/18 15:56 93 H 18 119/63 93 L 07/09/18 15:02 94 H 18 119/63 94 L 07/09/18 15:00 93 H 18 95 07/09/18 14:50 94 H 18 95 07/09/18 14:45 95 H 18 94 L 07/09/18 14:40 95 H 18 94 L 07/09/18 14:35 95 H 18 94 L 07/09/18 14:30 95 H 18 95 07/09/18 14:25 95 H 18 95 07/09/18 14:20 95 H 18 95 07/09/18 14:15 95 H 18 95 07/09/18 14:10 95 H 19 95 07/09/18 14:05 95 H 18 96 07/09/18 14:02 95 H 18 114/61 95 07/09/18 14:00 94 H 18 96 07/09/18 13:55 95 H 19 95 07/09/18 13:50 95 H 18 96 07/09/18 13:45 95 H 19 95 07/09/18 13:40 95 H 18 95 07/09/18 13:35 95 H 18 95 07/09/18 13:30 94 H 18 96 07/09/18 13:25 94 H 18 95 07/09/18 13:20 95 H 18 96 07/09/18 13:15 95 H 18 96 07/09/18 13:10 96 H 18 96 07/09/18 13:05 96 H 18 95 07/09/18 13:02 96 H 18 106/57 L 96 07/09/18 13:00 96 H 19 96 07/09/18 12:55 96 H 18 96 07/09/18 12:50 96 H 18 96 07/09/18 12:45 96 H 18 96 07/09/18 12:40 96 H 18 96 07/09/18 12:35 97 H 18 96 07/09/18 12:30 103 H 18 97 07/09/18 12:25 91 H 17 98 07/09/18 12:20 89 18 99 07/09/18 12:15 88 18 98 Intake and Output (Last 8hrs): Intake & Output 07/09/18 07/09/18 07/09/18 06:59 14:59 22:59 Intake Total 1476.6 1942.2 643.9 Output Total 75 81 5 Balance 1401.6 1861.2 638.9 Weight 116 lb 13.52 oz Intake: IV 545.5 830.5 319 Intake, IV Amount 931.1 1061.7 324.9 Left Distal Port 100 Left Proximal Port 125 R Trialysis #1 156.9 119.9 22.5 R Trialysis Cath #2 530 400 50 R Trialysis cath #3 124 175 25 R trialysis cath #4 13.2 16.8 2.4 Right Forearm 107 Right Hand 100 Right Upper arm 250 Oral 0 0 Other 50 Output: Urine 75 81 5 Urine, Voided 75 81 5 - Physical Exam Head: Positive for: Atraumatic, Normocephalic Pupils: Positive for: PERRL Extroacular Muscles: Positive for: EOMI Conjunctiva: Positive for: Normal Mouth: Positive for: Moist Mucous Membranes Respiratory/Chest: Positive for: Rhonchi Cardiovascular: Positive for: Normal S1, S2, Tachycardic Abdomen: Positive for: Normal Bowel Sounds. Negative for: Tenderness, Distention Psychiatric: Positive for: Alert - Medications Active Medications: Active Medications Generic Name Dose Route Start Last Admin Trade Name Freq PRN Reason Stop Dose Admin Acetaminophen 650 mg 07/07/18 20:03 07/07/18 20:24 Tylenol 325mg Tab PO 650 mg Q6H PRN Administration Pain, moderate (4-7) Albuterol/Ipratropium 3 ml 07/07/18 18:35 07/07/18 19:29 Duoneb 3 Mg/0.5 Mg (3 Ml) Ud INH 3 ml RQ6 PRN Administration Wheezing Albuterol/Ipratropium 3 ml 07/09/18 12:00 07/09/18 13:08 Duoneb 3 Mg/0.5 Mg (3 Ml) Ud INH Not Given RQ4 MANOLO Dextrose 0 ml 07/07/18 18:19 Dextrose 50% Inj IV STAT PRN Hypoglycemia Protocol Protocol Dextrose 0 gm 07/07/18 18:19 Glutose 15 PO ONCE PRN Hypoglycemia Protocol Protocol Glucagon 0 mg 07/07/18 18:19 Glucagen Diagnostic Kit IM STAT PRN Hypoglycemia Protocol Protocol Heparin Sodium (Porcine) 5,000 units 07/08/18 22:00 07/09/18 14:57 Heparin SC 5,000 units Q8 MANOLO Administration Hydrocortisone Sodium Succinate 100 mg 07/09/18 08:00 07/09/18 08:17 Solu-Cortef IV 100 mg Q8H MANOLO Administration Azithromycin 500 mg/ Sodium 250 mls @ 250 mls/hr 07/08/18 10:00 07/09/18 10:24 Chloride IVPB 250 mls/hr DAILY MANOLO Administration Protocol Dextrose 1,000 mls @ 0 mls/hr 07/07/18 18:19 Dextrose 5% In Water 1000 Ml IV .Q0M PRN Hypoglycemia Protocol Protocol Per Protocol Fentanyl Citrate 2,500 mcg/ 250 mls @ 10.07 mls/hr 07/08/18 14:45 07/09/18 15:42 Sodium Chloride IV Not Given .Q24H MANOLO Protocol 2 MCG/KG/HR Phenylephrine HCl 30 mg/ 253 mls @ 10.12 mls/hr 07/08/18 20:07 07/09/18 15:56 Sodium Chloride IV 98.81 mcg/min .Q24H PRN 50 mls/hr TITRATE PER MD ORDER Administration Protocol 20 MCG/MIN Norepinephrine Bitartrate 8 mg 258 mls @ 7.74 mls/hr 07/08/18 23:45 07/09/18 16:05 / Dextrose IV 12 mcg/min .Q24H PRN 23.22 mls/hr TITRATE PER MD ORDER Administration Protocol 4 MCG/MIN Vasopressin 40 units/ Dextrose 42 mls @ 2.52 mls/hr 07/08/18 23:45 07/09/18 00:31 IV 2.52 mls/hr .[id number] MANOLO Administration 0.04 UNITS/MIN Sodium Bicarbonate 150 meq/ 1,000 mls @ 125 mls/hr 07/09/18 11:44 07/09/18 12:02 Sodium Chloride IV 125 mls/hr .Q8H MANOLO Administration Meropenem 500 mg/ Sodium 100 mls @ 100 mls/hr 07/10/18 00:30 Chloride IVPB Q12H MANOLO Protocol Insulin Aspart 0 unit 07/09/18 00:00 07/09/18 12:14 Novolog SC 1 u Q6 MANOLO Administration Protocol Lactobacillus Acidophilus 1 cap 07/08/18 20:00 07/09/18 08:18 Bacid Acidophilus PO 1 cap Q12H MANOLO Administration Ondansetron HCl 4 mg 07/07/18 18:00 07/08/18 13:06 Zofran Inj IVP 4 mg Q6H PRN Administration Nausea/Vomiting Pantoprazole Sodium 40 mg 07/08/18 10:00 07/09/18 10:35 Protonix Inj IVP 40 mg BID MANOLO Administration - Patient Studies Lab Studies: Microbiology Studies 07/08/18 06:21 MRSA Culture (Admit) - Final Naris MRSA NOT DETECTED 07/07/18 19:21 Urine Culture - Final Urine Escherichia Coli 07/07/18 16:47 Blood Culture - Preliminary Blood-Venous NO GROWTH AFTER 24 HOURS 07/07/18 16:47 Blood Culture - Preliminary Blood-Venous NO GROWTH AFTER 24 HOURS Lab Studies 07/09/18 07/09/18 07/09/18 Range/Units 14:33 14:33 12:05 WBC (4.8-10.8) K/uL RBC (3.80-5.20) Mil/uL Hgb (11.0-16.0) g/dL Hct (34.0-47.0) % MCV (81.0-99.0) fL MCH (27.0-31.0) pg MCHC (33.0-37.0) g/dL RDW (11.5-14.5) % Plt Count (130-400) K/uL MPV (7.2-11.7) fL Neut % (Auto) (50.0-75.0) % Lymph % (Auto) (20.0-40.0) % [place] % (Auto) (0.0-10.0) % Eos % (Auto) (0.0-4.0) % Baso % (Auto) (0.0-2.0) % Neut # (Auto) (1.8-7.0) K/uL Lymph # (Auto) (1.0-4.3) K/uL [place] # (Auto) (0.0-0.8) K/uL Eos # (Auto) (0.0-0.7) K/uL Baso # (Auto) (0.0-0.2) K/uL Neutrophils % (Manual) (50-75) % Band Neutrophils % (0-2) % Lymphocytes % (Manual) (20-40) % Monocytes % (Manual) (0-10) % Platelet Estimate (NORMAL) Large Platelets Polychromasia Hypochromasia (manual) Poikilocytosis (manual Anisocytosis (manual) Microcytosis (manual) Ovalocytes Puncture Site pCO2 (35-45) mm/Hg pO2 (80-100) mm/Hg HCO3 (21-28) mmol/L ABG pH (7.35-7.45) ABG Total CO2 (22-28) mmol/L ABG O2 Saturation (95-98) % ABG Base Excess (-2.0-3.0) mmol/L ABG Hemoglobin (11.7-17.4) g/dL ABG Carboxyhemoglobin (0.5-1.5) % POC ABG HHb (Measured) (0.0-5.0) % ABG Methemoglobin (0.0-3.0) % Kev[place] Test ABG Potassium (3.6-5.2) mmol/L A-a O2 Difference mm/Hg Respiratory Index Hgb O2 Saturation (95.0-98.0) % Sodium (132-148) mmol/l Chloride (98-107) mmol/L Glucose (65-105) mg/dl Lactate (0.7-2.1) mmol/L Vent Mode Mechanical Rate FiO2 % Tidal Volume PEEP Potassium (3.6-5.2) mmol/L Carbon Dioxide (22-30) mmol/L Anion Gap (10-20) BUN (7-17) mg/dL Creatinine (0.7-1.2) mg/dL Est GFR ( Amer) Est GFR (Non-Af Amer) POC Glucose (mg/dL) 190 H (65-110) mg/dL Random Glucose (65-105) mg/dL Calcium (8.6-10.4) mg/dl Phosphorus (2.5-4.5) mg/dL Magnesium (1.6-2.3) mg/dL Total Bilirubin (0.2-1.3) mg/dL AST (14-36) U/L ALT (9-52) U/L Alkaline Phosphatase (38-126) U/L Total Creatine Kinase (30-135) U/L Total Protein (6.3-8.3) g/dL Albumin (3.5-5.0) g/dL Globulin (2.2-3.9) gm/dL Albumin/Globulin Ratio (1.0-2.1) Arterial Blood Potassium (3.6-5.2) mmol/L Urine Color (YELLOW) Urine Clarity (Clear) Urine pH (5.0-8.0) Ur Specific [employer] (1.003-1.030) Urine Protein (NEGATIVE) mg/dL Urine Glucose (UA) (Normal) mg/dL Urine Ketones (NEGATIVE) mg/dL Urine Blood (NEGATIVE) Urine Nitrate (NEGATIVE) Urine Bilirubin (NEGATIVE) Urine Urobilinogen (0.2-1.0) mg/dL Ur Leukocyte Esterase (Negative) Kiya/uL Urine WBC (Auto) (0-5) /hpf Urine RBC (Auto) (0-3) /hpf Ur Squamous Epith Cells (0-5) /hpf Urine Bacteria (<OCC) Ur Random Creatinine 120.1 mg/dL U Random Total Protein 89.0 H (0.0-12.0) mg/dL Complement C3 (88.0-165.0) mg/dL Complement C4 (14.0-44.0) mg/dL 07/09/18 07/09/18 07/09/18 Range/Units 06:35 06:35 05:51 WBC 15.9 H D (4.8-10.8) K/uL RBC 3.33 L (3.80-5.20) Mil/uL Hgb 9.8 L (11.0-16.0) g/dL Hct 29.8 L (34.0-47.0) % MCV 89.5 (81.0-99.0) fL MCH 29.5 (27.0-31.0) pg MCHC 32.9 L (33.0-37.0) g/dL RDW 15.8 H (11.5-14.5) % Plt Count 226 (130-400) K/uL MPV 8.9 (7.2-11.7) fL Neut % (Auto) 89.5 H (50.0-75.0) % Lymph % (Auto) 7.2 L (20.0-40.0) % [place] % (Auto) 3.0 (0.0-10.0) % Eos % (Auto) 0.1 (0.0-4.0) % Baso % (Auto) 0.2 (0.0-2.0) % Neut # (Auto) 14.3 H (1.8-7.0) K/uL Lymph # (Auto) 1.1 (1.0-4.3) K/uL [place] # (Auto) 0.5 (0.0-0.8) K/uL Eos # (Auto) 0.0 (0.0-0.7) K/uL Baso # (Auto) 0.0 (0.0-0.2) K/uL Neutrophils % (Manual) 72 (50-75) % Band Neutrophils % 17 H* (0-2) % Lymphocytes % (Manual) 7 L (20-40) % Monocytes % (Manual) 4 (0-10) % Platelet Estimate Normal (NORMAL) Large Platelets Present Polychromasia Slight Hypochromasia (manual) Slight Poikilocytosis (manual Slight Anisocytosis (manual) Slight Microcytosis (manual) Slight Ovalocytes Slight Puncture Site pCO2 (35-45) mm/Hg pO2 (80-100) mm/Hg HCO3 (21-28) mmol/L ABG pH (7.35-7.45) ABG Total CO2 (22-28) mmol/L ABG O2 Saturation (95-98) % ABG Base Excess (-2.0-3.0) mmol/L ABG Hemoglobin (11.7-17.4) g/dL ABG Carboxyhemoglobin (0.5-1.5) % POC ABG HHb (Measured) (0.0-5.0) % ABG Methemoglobin (0.0-3.0) % Kevon Test ABG Potassium (3.6-5.2) mmol/L A-a O2 Difference mm/Hg Respiratory Index Hgb O2 Saturation (95.0-98.0) % Sodium 141 (132-148) mmol/l Chloride 107 (98-107) mmol/L Glucose (65-105) mg/dl Lactate (0.7-2.1) mmol/L Vent Mode Mechanical Rate FiO2 % Tidal Volume PEEP Potassium 4.3 (3.6-5.2) mmol/L Carbon Dioxide 15 L (22-30) mmol/L Anion Gap 23 H (10-20) BUN 21 H (7-17) mg/dL Creatinine 1.9 H (0.7-1.2) mg/dL Est GFR ( Amer) 34 Est GFR (Non-Af Amer) 28 POC Glucose (mg/dL) 140 H (65-110) mg/dL Random Glucose 138 H (65-105) mg/dL Calcium 7.0 L (8.6-10.4) mg/dl Phosphorus 3.4 (2.5-4.5) mg/dL Magnesium 2.0 (1.6-2.3) mg/dL Total Bilirubin 0.9 (0.2-1.3) mg/dL AST 240 H D (14-36) U/L ALT 97 H D (9-52) U/L Alkaline Phosphatase 95 (38-126) U/L Total Creatine Kinase (30-135) U/L Total Protein 5.1 L (6.3-8.3) g/dL Albumin 2.5 L (3.5-5.0) g/dL Globulin 2.6 (2.2-3.9) gm/dL Albumin/Globulin Ratio 1.0 (1.0-2.1) Arterial Blood Potassium (3.6-5.2) mmol/L Urine Color (YELLOW) Urine Clarity (Clear) Urine pH (5.0-8.0) Ur Specific [employer] (1.003-1.030) Urine Protein (NEGATIVE) mg/dL Urine Glucose (UA) (Normal) mg/dL Urine Ketones (NEGATIVE) mg/dL Urine Blood (NEGATIVE) Urine Nitrate (NEGATIVE) Urine Bilirubin (NEGATIVE) Urine Urobilinogen (0.2-1.0) mg/dL Ur Leukocyte Esterase (Negative) Kiya/uL Urine WBC (Auto) (0-5) /hpf Urine RBC (Auto) (0-3) /hpf Ur Squamous Epith Cells (0-5) /hpf Urine Bacteria (<OCC) Ur Random Creatinine mg/dL U Random Total Protein (0.0-12.0) mg/dL Complement C3 (88.0-165.0) mg/dL Complement C4 (14.0-44.0) mg/dL 07/09/18 07/09/18 07/08/18 Range/Units 05:35 00:33 23:06 WBC (4.8-10.8) K/uL RBC (3.80-5.20) Mil/uL Hgb (11.0-16.0) g/dL Hct (34.0-47.0) % MCV (81.0-99.0) fL MCH (27.0-31.0) pg MCHC (33.0-37.0) g/dL RDW (11.5-14.5) % Plt Count (130-400) K/uL MPV (7.2-11.7) fL Neut % (Auto) (50.0-75.0) % Lymph % (Auto) (20.0-40.0) % [place] % (Auto) (0.0-10.0) % Eos % (Auto) (0.0-4.0) % Baso % (Auto) (0.0-2.0) % Neut # (Auto) (1.8-7.0) K/uL Lymph # (Auto) (1.0-4.3) K/uL [place] # (Auto) (0.0-0.8) K/uL Eos # (Auto) (0.0-0.7) K/uL Baso # (Auto) (0.0-0.2) K/uL Neutrophils % (Manual) (50-75) % Band Neutrophils % (0-2) % Lymphocytes % (Manual) (20-40) % Monocytes % (Manual) (0-10) % Platelet Estimate (NORMAL) Large Platelets Polychromasia Hypochromasia (manual) Poikilocytosis (manual Anisocytosis (manual) Microcytosis (manual) Ovalocytes Puncture Site Rradial pCO2 36 (35-45) mm/Hg pO2 69 L (80-100) mm/Hg HCO3 16.2 L (21-28) mmol/L ABG pH 7.24 L (7.35-7.45) ABG Total CO2 16.5 L (22-28) mmol/L ABG O2 Saturation 95.5 (95-98) % ABG Base Excess -11.1 L (-2.0-3.0) mmol/L ABG Hemoglobin 9.6 L (11.7-17.4) g/dL ABG Carboxyhemoglobin 1.8 H (0.5-1.5) % POC ABG HHb (Measured) 4.4 (0.0-5.0) % ABG Methemoglobin 0.7 (0.0-3.0) % Kevon Test Pos ABG Potassium (3.6-5.2) mmol/L A-a O2 Difference 314.0 mm/Hg Respiratory Index 4.6 Hgb O2 Saturation 93.1 L (95.0-98.0) % Sodium 139 (132-148) mmol/l Chloride 106 (98-107) mmol/L Glucose (65-105) mg/dl Lactate (0.7-2.1) mmol/L Vent Mode Prvc Mechanical Rate 20 FiO2 60.0 % Tidal Volume 400 PEEP 5 Potassium 4.5 (3.6-5.2) mmol/L Carbon Dioxide 20 L (22-30) mmol/L Anion Gap 18 (10-20) BUN 16 (7-17) mg/dL Creatinine 1.4 H (0.7-1.2) mg/dL Est GFR ( Amer) 48 Est GFR (Non-Af Amer) 39 POC Glucose (mg/dL) 97 (65-110) mg/dL Random Glucose 107 H (65-105) mg/dL Calcium 7.2 L (8.6-10.4) mg/dl Phosphorus (2.5-4.5) mg/dL Magnesium (1.6-2.3) mg/dL Total Bilirubin (0.2-1.3) mg/dL AST (14-36) U/L ALT (9-52) U/L Alkaline Phosphatase (38-126) U/L Total Creatine Kinase (30-135) U/L Total Protein (6.3-8.3) g/dL Albumin (3.5-5.0) g/dL Globulin (2.2-3.9) gm/dL Albumin/Globulin Ratio (1.0-2.1) Arterial Blood Potassium (3.6-5.2) mmol/L Urine Color (YELLOW) Urine Clarity (Clear) Urine pH (5.0-8.0) Ur Specific [employer] (1.003-1.030) Urine Protein (NEGATIVE) mg/dL Urine Glucose (UA) (Normal) mg/dL Urine Ketones (NEGATIVE) mg/dL Urine Blood (NEGATIVE) Urine Nitrate (NEGATIVE) Urine Bilirubin (NEGATIVE) Urine Urobilinogen (0.2-1.0) mg/dL Ur Leukocyte Esterase (Negative) Kiya/uL Urine WBC (Auto) (0-5) /hpf Urine RBC (Auto) (0-3) /hpf Ur Squamous Epith Cells (0-5) /hpf Urine Bacteria (<OCC) Ur Random Creatinine mg/dL U Random Total Protein (0.0-12.0) mg/dL Complement C3 (88.0-165.0) mg/dL Complement C4 (14.0-44.0) mg/dL 07/08/18 07/08/18 07/08/18 Range/Units 23:06 23:06 22:40 WBC (4.8-10.8) K/uL RBC (3.80-5.20) Mil/uL Hgb (11.0-16.0) g/dL Hct (34.0-47.0) % MCV (81.0-99.0) fL MCH (27.0-31.0) pg MCHC (33.0-37.0) g/dL RDW (11.5-14.5) % Plt Count (130-400) K/uL MPV (7.2-11.7) fL Neut % (Auto) (50.0-75.0) % Lymph % (Auto) (20.0-40.0) % [place] % (Auto) (0.0-10.0) % Eos % (Auto) (0.0-4.0) % Baso % (Auto) (0.0-2.0) % Neut # (Auto) (1.8-7.0) K/uL Lymph # (Auto) (1.0-4.3) K/uL [place] # (Auto) (0.0-0.8) K/uL Eos # (Auto) (0.0-0.7) K/uL Baso # (Auto) (0.0-0.2) K/uL Neutrophils % (Manual) (50-75) % Band Neutrophils % (0-2) % Lymphocytes % (Manual) (20-40) % Monocytes % (Manual) (0-10) % Platelet Estimate (NORMAL) Large Platelets Polychromasia Hypochromasia (manual) Poikilocytosis (manual Anisocytosis (manual) Microcytosis (manual) Ovalocytes Puncture Site Vein pCO2 25 L (35-45) mm/Hg pO2 27 L* (80-100) mm/Hg HCO3 17.8 L (21-28) mmol/L ABG pH 7.40 (7.35-7.45) ABG Total CO2 16.3 L (22-28) mmol/L ABG O2 Saturation 64.7 L (95-98) % ABG Base Excess -7.5 L (-2.0-3.0) mmol/L ABG Hemoglobin (11.7-17.4) g/dL ABG Carboxyhemoglobin (0.5-1.5) % POC ABG HHb (Measured) (0.0-5.0) % ABG Methemoglobin (0.0-3.0) % Kevon Test Na ABG Potassium 3.0 L (3.6-5.2) mmol/L A-a O2 Difference mm/Hg Respiratory Index Hgb O2 Saturation (95.0-98.0) % Sodium 146.0 (132-148) mmol/l Chloride 120.0 H (98-107) mmol/L Glucose 81 (65-105) mg/dl Lactate 2.1 (0.7-2.1) mmol/L Vent Mode Mechanical Rate FiO2 % Tidal Volume PEEP Potassium (3.6-5.2) mmol/L Carbon Dioxide (22-30) mmol/L Anion Gap (10-20) BUN (7-17) mg/dL Creatinine (0.7-1.2) mg/dL Est GFR ( Amer) Est GFR (Non-Af Amer) POC Glucose (mg/dL) (65-110) mg/dL Random Glucose (65-105) mg/dL Calcium (8.6-10.4) mg/dl Phosphorus (2.5-4.5) mg/dL Magnesium (1.6-2.3) mg/dL Total Bilirubin (0.2-1.3) mg/dL AST (14-36) U/L ALT (9-52) U/L Alkaline Phosphatase (38-126) U/L Total Creatine Kinase 1086 H (30-135) U/L Total Protein (6.3-8.3) g/dL Albumin (3.5-5.0) g/dL Globulin (2.2-3.9) gm/dL Albumin/Globulin Ratio (1.0-2.1) Arterial Blood Potassium 3.0 L (3.6-5.2) mmol/L Urine Color (YELLOW) Urine Clarity (Clear) Urine pH (5.0-8.0) Ur Specific [employer] (1.003-1.030) Urine Protein (NEGATIVE) mg/dL Urine Glucose (UA) (Normal) mg/dL Urine Ketones (NEGATIVE) mg/dL Urine Blood (NEGATIVE) Urine Nitrate (NEGATIVE) Urine Bilirubin (NEGATIVE) Urine Urobilinogen (0.2-1.0) mg/dL Ur Leukocyte Esterase (Negative) Kiya/uL Urine WBC (Auto) (0-5) /hpf Urine RBC (Auto) (0-3) /hpf Ur Squamous Epith Cells (0-5) /hpf Urine Bacteria (<OCC) Ur Random Creatinine mg/dL U Random Total Protein (0.0-12.0) mg/dL Complement C3 97.0 (88.0-165.0) mg/dL Complement C4 19.8 (14.0-44.0) mg/dL 07/08/18 07/08/18 07/08/18 Range/Units 21:36 16:45 16:33 WBC (4.8-10.8) K/uL RBC (3.80-5.20) Mil/uL Hgb (11.0-16.0) g/dL Hct (34.0-47.0) % MCV (81.0-99.0) fL MCH (27.0-31.0) pg MCHC (33.0-37.0) g/dL RDW (11.5-14.5) % Plt Count (130-400) K/uL MPV (7.2-11.7) fL Neut % (Auto) (50.0-75.0) % Lymph % (Auto) (20.0-40.0) % [place] % (Auto) (0.0-10.0) % Eos % (Auto) (0.0-4.0) % Baso % (Auto) (0.0-2.0) % Neut # (Auto) (1.8-7.0) K/uL Lymph # (Auto) (1.0-4.3) K/uL [place] # (Auto) (0.0-0.8) K/uL Eos # (Auto) (0.0-0.7) K/uL Baso # (Auto) (0.0-0.2) K/uL Neutrophils % (Manual) (50-75) % Band Neutrophils % (0-2) % Lymphocytes % (Manual) (20-40) % Monocytes % (Manual) (0-10) % Platelet Estimate (NORMAL) Large Platelets Polychromasia Hypochromasia (manual) Poikilocytosis (manual Anisocytosis (manual) Microcytosis (manual) Ovalocytes Puncture Site Rradial pCO2 36 (35-45) mm/Hg pO2 67 L (80-100) mm/Hg HCO3 14.8 L (21-28) mmol/L ABG pH 7.21 L (7.35-7.45) ABG Total CO2 15.5 L (22-28) mmol/L ABG O2 Saturation 94.7 L (95-98) % ABG Base Excess -12.6 L (-2.0-3.0) mmol/L ABG Hemoglobin (11.7-17.4) g/dL ABG Carboxyhemoglobin (0.5-1.5) % POC ABG HHb (Measured) (0.0-5.0) % ABG Methemoglobin (0.0-3.0) % Kevon Test Pos ABG Potassium 4.5 (3.6-5.2) mmol/L A-a O2 Difference 316.0 mm/Hg Respiratory Index 4.7 Hgb O2 Saturation (95.0-98.0) % Sodium 137.0 (132-148) mmol/l Chloride 111.0 H (98-107) mmol/L Glucose 145 H (65-105) mg/dl Lactate 1.6 (0.7-2.1) mmol/L Vent Mode Prvc Mechanical Rate 14 FiO2 60.0 % Tidal Volume 400 PEEP 5 Potassium (3.6-5.2) mmol/L Carbon Dioxide (22-30) mmol/L Anion Gap (10-20) BUN (7-17) mg/dL Creatinine (0.7-1.2) mg/dL Est GFR ( Amer) Est GFR (Non-Af Amer) POC Glucose (mg/dL) 105 160 H (65-110) mg/dL Random Glucose (65-105) mg/dL Calcium (8.6-10.4) mg/dl Phosphorus (2.5-4.5) mg/dL Magnesium (1.6-2.3) mg/dL Total Bilirubin (0.2-1.3) mg/dL AST (14-36) U/L ALT (9-52) U/L Alkaline Phosphatase (38-126) U/L Total Creatine Kinase (30-135) U/L Total Protein (6.3-8.3) g/dL Albumin (3.5-5.0) g/dL Globulin (2.2-3.9) gm/dL Albumin/Globulin Ratio (1.0-2.1) Arterial Blood Potassium 4.5 (3.6-5.2) mmol/L Urine Color (YELLOW) Urine Clarity (Clear) Urine pH (5.0-8.0) Ur Specific [employer] (1.003-1.030) Urine Protein (NEGATIVE) mg/dL Urine Glucose (UA) (Normal) mg/dL Urine Ketones (NEGATIVE) mg/dL Urine Blood (NEGATIVE) Urine Nitrate (NEGATIVE) Urine Bilirubin (NEGATIVE) Urine Urobilinogen (0.2-1.0) mg/dL Ur Leukocyte Esterase (Negative) Kiya/uL Urine WBC (Auto) (0-5) /hpf Urine RBC (Auto) (0-3) /hpf Ur Squamous Epith Cells (0-5) /hpf Urine Bacteria (<OCC) Ur Random Creatinine mg/dL U Random Total Protein (0.0-12.0) mg/dL Complement C3 (88.0-165.0) mg/dL Complement C4 (14.0-44.0) mg/dL 07/08/18 Range/Units 16:31 WBC (4.8-10.8) K/uL RBC (3.80-5.20) Mil/uL Hgb (11.0-16.0) g/dL Hct (34.0-47.0) % MCV (81.0-99.0) fL MCH (27.0-31.0) pg MCHC (33.0-37.0) g/dL RDW (11.5-14.5) % Plt Count (130-400) K/uL MPV (7.2-11.7) fL Neut % (Auto) (50.0-75.0) % Lymph % (Auto) (20.0-40.0) % [place] % (Auto) (0.0-10.0) % Eos % (Auto) (0.0-4.0) % Baso % (Auto) (0.0-2.0) % Neut # (Auto) (1.8-7.0) K/uL Lymph # (Auto) (1.0-4.3) K/uL [place] # (Auto) (0.0-0.8) K/uL Eos # (Auto) (0.0-0.7) K/uL Baso # (Auto) (0.0-0.2) K/uL Neutrophils % (Manual) (50-75) % Band Neutrophils % (0-2) % Lymphocytes % (Manual) (20-40) % Monocytes % (Manual) (0-10) % Platelet Estimate (NORMAL) Large Platelets Polychromasia Hypochromasia (manual) Poikilocytosis (manual Anisocytosis (manual) Microcytosis (manual) Ovalocytes Puncture Site pCO2 (35-45) mm/Hg pO2 (80-100) mm/Hg HCO3 (21-28) mmol/L ABG pH (7.35-7.45) ABG Total CO2 (22-28) mmol/L ABG O2 Saturation (95-98) % ABG Base Excess (-2.0-3.0) mmol/L ABG Hemoglobin (11.7-17.4) g/dL ABG Carboxyhemoglobin (0.5-1.5) % POC ABG HHb (Measured) (0.0-5.0) % ABG Methemoglobin (0.0-3.0) % [employer] Test ABG Potassium (3.6-5.2) mmol/L A-a O2 Difference mm/Hg Respiratory Index Hgb O2 Saturation (95.0-98.0) % Sodium (132-148) mmol/l Chloride (98-107) mmol/L Glucose (65-105) mg/dl Lactate (0.7-2.1) mmol/L Vent Mode Mechanical Rate FiO2 % Tidal Volume PEEP Potassium (3.6-5.2) mmol/L Carbon Dioxide (22-30) mmol/L Anion Gap (10-20) BUN (7-17) mg/dL Creatinine (0.7-1.2) mg/dL Est GFR ( Amer) Est GFR (Non-Af Amer) POC Glucose (mg/dL) (65-110) mg/dL Random Glucose (65-105) mg/dL Calcium (8.6-10.4) mg/dl Phosphorus (2.5-4.5) mg/dL Magnesium (1.6-2.3) mg/dL Total Bilirubin (0.2-1.3) mg/dL AST (14-36) U/L ALT (9-52) U/L Alkaline Phosphatase (38-126) U/L Total Creatine Kinase (30-135) U/L Total Protein (6.3-8.3) g/dL Albumin (3.5-5.0) g/dL Globulin (2.2-3.9) gm/dL Albumin/Globulin Ratio (1.0-2.1) Arterial Blood Potassium (3.6-5.2) mmol/L Urine Color Yellow (YELLOW) Urine Clarity Hazy (Clear) Urine pH 5.0 (5.0-8.0) Ur Specific [employer] 1.019 (1.003-1.030) Urine Protein 2+ H (NEGATIVE) mg/dL Urine Glucose (UA) Normal (Normal) mg/dL Urine Ketones Negative (NEGATIVE) mg/dL Urine Blood 2+ H (NEGATIVE) Urine Nitrate Negative (NEGATIVE) Urine Bilirubin Negative (NEGATIVE) Urine Urobilinogen Normal (0.2-1.0) mg/dL Ur Leukocyte Esterase Neg (Negative) Kiya/uL Urine WBC (Auto) 4 (0-5) /hpf Urine RBC (Auto) 8 H (0-3) /hpf Ur Squamous Epith Cells < 1 (0-5) /hpf Urine Bacteria Occ H (<OCC) Ur Random Creatinine mg/dL U Random Total Protein (0.0-12.0) mg/dL Complement C3 (88.0-165.0) mg/dL Complement C4 (14.0-44.0) mg/dL Laboratory Results - last 24 hr 07/08/18 07/08/18 07/08/18 16:31 16:33 16:45 WBC RBC Hgb Hct MCV MCH MCHC RDW Plt Count MPV Neut % (Auto) Lymph % (Auto) [place] % (Auto) Eos % (Auto) Baso % (Auto) Neut # (Auto) Lymph # (Auto) [place] # (Auto) Eos # (Auto) Baso # (Auto) Neutrophils % (Manual) Band Neutrophils % Lymphocytes % (Manual) Monocytes % (Manual) Platelet Estimate Large Platelets Polychromasia Hypochromasia (manual) Poikilocytosis (manual Anisocytosis (manual) Microcytosis (manual) Ovalocytes Puncture Site Rradial pCO2 36 pO2 67 L HCO3 14.8 L ABG pH 7.21 L ABG Total CO2 15.5 L ABG O2 Saturation 94.7 L ABG Base Excess -12.6 L ABG Hemoglobin ABG Carboxyhemoglobin POC ABG HHb (Measured) ABG Methemoglobin [employer] Test Pos ABG Potassium 4.5 A-a O2 Difference 316.0 Respiratory Index 4.7 Hgb O2 Saturation Sodium 137.0 Chloride 111.0 H Glucose 145 H Lactate 1.6 Vent Mode Prvc Mechanical Rate 14 FiO2 60.0 Tidal Volume 400 PEEP 5 Potassium Carbon Dioxide Anion Gap BUN Creatinine Est GFR ( Amer) Est GFR (Non-Af Amer) POC Glucose (mg/dL) 160 H Random Glucose Calcium Phosphorus Magnesium Total Bilirubin AST ALT Alkaline Phosphatase Total Creatine Kinase Total Protein Albumin Globulin Albumin/Globulin Ratio Arterial Blood Potassium 4.5 Urine Color Yellow Urine Clarity Hazy Urine pH 5.0 Ur Specific [employer] 1.019 Urine Protein 2+ H Urine Glucose (UA) Normal Urine Ketones Negative Urine Blood 2+ H Urine Nitrate Negative Urine Bilirubin Negative Urine Urobilinogen Normal Ur Leukocyte Esterase Neg Urine WBC (Auto) 4 Urine RBC (Auto) 8 H Ur Squamous Epith Cells < 1 Urine Bacteria Occ H Ur Random Creatinine U Random Total Protein Complement C3 Complement C4 07/08/18 07/08/18 07/08/18 21:36 22:40 23:06 WBC RBC Hgb Hct MCV MCH MCHC RDW Plt Count MPV Neut % (Auto) Lymph % (Auto) [place] % (Auto) Eos % (Auto) Baso % (Auto) Neut # (Auto) Lymph # (Auto) [place] # (Auto) Eos # (Auto) Baso # (Auto) Neutrophils % (Manual) Band Neutrophils % Lymphocytes % (Manual) Monocytes % (Manual) Platelet Estimate Large Platelets Polychromasia Hypochromasia (manual) Poikilocytosis (manual Anisocytosis (manual) Microcytosis (manual) Ovalocytes Puncture Site Vein pCO2 25 L pO2 27 L* HCO3 17.8 L ABG pH 7.40 ABG Total CO2 16.3 L ABG O2 Saturation 64.7 L ABG Base Excess -7.5 L ABG Hemoglobin ABG Carboxyhemoglobin POC ABG HHb (Measured) ABG Methemoglobin [place] Test Na ABG Potassium 3.0 L A-a O2 Difference Respiratory Index Hgb O2 Saturation Sodium 146.0 Chloride 120.0 H Glucose 81 Lactate 2.1 Vent Mode Mechanical Rate FiO2 Tidal Volume PEEP Potassium Carbon Dioxide Anion Gap BUN Creatinine Est GFR ( Amer) Est GFR (Non-Af Amer) POC Glucose (mg/dL) 105 Random Glucose Calcium Phosphorus Magnesium Total Bilirubin AST ALT Alkaline Phosphatase Total Creatine Kinase 1086 H Total Protein Albumin Globulin Albumin/Globulin Ratio Arterial Blood Potassium 3.0 L Urine Color Urine Clarity Urine pH Ur Specific [employer] Urine Protein Urine Glucose (UA) Urine Ketones Urine Blood Urine Nitrate Urine Bilirubin Urine Urobilinogen Ur Leukocyte Esterase Urine WBC (Auto) Urine RBC (Auto) Ur Squamous Epith Cells Urine Bacteria Ur Random Creatinine U Random Total Protein Complement C3 Complement C4 07/08/18 07/08/18 07/09/18 23:06 23:06 00:33 WBC RBC Hgb Hct MCV MCH MCHC RDW Plt Count MPV Neut % (Auto) Lymph % (Auto) [place] % (Auto) Eos % (Auto) Baso % (Auto) Neut # (Auto) Lymph # (Auto) [place] # (Auto) Eos # (Auto) Baso # (Auto) Neutrophils % (Manual) Band Neutrophils % Lymphocytes % (Manual) Monocytes % (Manual) Platelet Estimate Large Platelets Polychromasia Hypochromasia (manual) Poikilocytosis (manual Anisocytosis (manual) Microcytosis (manual) Ovalocytes Puncture Site pCO2 pO2 HCO3 ABG pH ABG Total CO2 ABG O2 Saturation ABG Base Excess ABG Hemoglobin ABG Carboxyhemoglobin POC ABG HHb (Measured) ABG Methemoglobin [place] Test ABG Potassium A-a O2 Difference Respiratory Index Hgb O2 Saturation Sodium 139 Chloride 106 Glucose Lactate Vent Mode Mechanical Rate FiO2 Tidal Volume PEEP Potassium 4.5 Carbon Dioxide 20 L Anion Gap 18 BUN 16 Creatinine 1.4 H Est GFR ( Amer) 48 Est GFR (Non-Af Amer) 39 POC Glucose (mg/dL) 97 Random Glucose 107 H Calcium 7.2 L Phosphorus Magnesium Total Bilirubin AST ALT Alkaline Phosphatase Total Creatine Kinase Total Protein Albumin Globulin Albumin/Globulin Ratio Arterial Blood Potassium Urine Color Urine Clarity Urine pH Ur Specific [employer] Urine Protein Urine Glucose (UA) Urine Ketones Urine Blood Urine Nitrate Urine Bilirubin Urine Urobilinogen Ur Leukocyte Esterase Urine WBC (Auto) Urine RBC (Auto) Ur Squamous Epith Cells Urine Bacteria Ur Random Creatinine U Random Total Protein Complement C3 97.0 Complement C4 19.8 07/09/18 07/09/18 07/09/18 05:35 05:51 06:35 WBC 15.9 H D RBC 3.33 L Hgb 9.8 L Hct 29.8 L MCV 89.5 MCH 29.5 MCHC 32.9 L RDW 15.8 H Plt Count 226 MPV 8.9 Neut % (Auto) 89.5 H Lymph % (Auto) 7.2 L [place] % (Auto) 3.0 Eos % (Auto) 0.1 Baso % (Auto) 0.2 Neut # (Auto) 14.3 H Lymph # (Auto) 1.1 [place] # (Auto) 0.5 Eos # (Auto) 0.0 Baso # (Auto) 0.0 Neutrophils % (Manual) 72 Band Neutrophils % 17 H* Lymphocytes % (Manual) 7 L Monocytes % (Manual) 4 Platelet Estimate Normal Large Platelets Present Polychromasia Slight Hypochromasia (manual) Slight Poikilocytosis (manual Slight Anisocytosis (manual) Slight Microcytosis (manual) Slight Ovalocytes Slight Puncture Site Rradial pCO2 36 pO2 69 L HCO3 16.2 L ABG pH 7.24 L ABG Total CO2 16.5 L ABG O2 Saturation 95.5 ABG Base Excess -11.1 L ABG Hemoglobin 9.6 L ABG Carboxyhemoglobin 1.8 H POC ABG HHb (Measured) 4.4 ABG Methemoglobin 0.7 [place] Test Pos ABG Potassium A-a O2 Difference 314.0 Respiratory Index 4.6 Hgb O2 Saturation 93.1 L Sodium Chloride Glucose Lactate Vent Mode Prvc Mechanical Rate 20 FiO2 60.0 Tidal Volume 400 PEEP 5 Potassium Carbon Dioxide Anion Gap BUN Creatinine Est GFR ( Amer) Est GFR (Non-Af Amer) POC Glucose (mg/dL) 140 H Random Glucose Calcium Phosphorus Magnesium Total Bilirubin AST ALT Alkaline Phosphatase Total Creatine Kinase Total Protein Albumin Globulin Albumin/Globulin Ratio Arterial Blood Potassium Urine Color Urine Clarity Urine pH Ur Specific [employer] Urine Protein Urine Glucose (UA) Urine Ketones Urine Blood Urine Nitrate Urine Bilirubin Urine Urobilinogen Ur Leukocyte Esterase Urine WBC (Auto) Urine RBC (Auto) Ur Squamous Epith Cells Urine Bacteria Ur Random Creatinine U Random Total Protein Complement C3 Complement C4 07/09/18 07/09/18 07/09/18 06:35 12:05 14:33 WBC RBC Hgb Hct MCV MCH MCHC RDW Plt Count MPV Neut % (Auto) Lymph % (Auto) [place] % (Auto) Eos % (Auto) Baso % (Auto) Neut # (Auto) Lymph # (Auto) [place] # (Auto) Eos # (Auto) Baso # (Auto) Neutrophils % (Manual) Band Neutrophils % Lymphocytes % (Manual) Monocytes % (Manual) Platelet Estimate Large Platelets Polychromasia Hypochromasia (manual) Poikilocytosis (manual Anisocytosis (manual) Microcytosis (manual) Ovalocytes Puncture Site pCO2 pO2 HCO3 ABG pH ABG Total CO2 ABG O2 Saturation ABG Base Excess ABG Hemoglobin ABG Carboxyhemoglobin POC ABG HHb (Measured) ABG Methemoglobin [place] Test ABG Potassium A-a O2 Difference Respiratory Index Hgb O2 Saturation Sodium 141 Chloride 107 Glucose Lactate Vent Mode Mechanical Rate FiO2 Tidal Volume PEEP Potassium 4.3 Carbon Dioxide 15 L Anion Gap 23 H BUN 21 H Creatinine 1.9 H Est GFR ( Amer) 34 Est GFR (Non-Af Amer) 28 POC Glucose (mg/dL) 190 H Random Glucose 138 H Calcium 7.0 L Phosphorus 3.4 Magnesium 2.0 Total Bilirubin 0.9 AST 240 H D ALT 97 H D Alkaline Phosphatase 95 Total Creatine Kinase Total Protein 5.1 L Albumin 2.5 L Globulin 2.6 Albumin/Globulin Ratio 1.0 Arterial Blood Potassium Urine Color Urine Clarity Urine pH Ur Specific [employer] Urine Protein Urine Glucose (UA) Urine Ketones Urine Blood Urine Nitrate Urine Bilirubin Urine Urobilinogen Ur Leukocyte Esterase Urine WBC (Auto) Urine RBC (Auto) Ur Squamous Epith Cells Urine Bacteria Ur Random Creatinine 120.1 U Random Total Protein Complement C3 Complement C4 10/07/18 14:33 WBC RBC Hgb Hct MCV MCH MCHC RDW Plt Count MPV Neut % (Auto) Lymph % (Auto) [place] % (Auto) Eos % (Auto) Baso % (Auto) Neut # (Auto) Lymph # (Auto) [place] # (Auto) Eos # (Auto) Baso # (Auto) Neutrophils % (Manual) Band Neutrophils % Lymphocytes % (Manual) Monocytes % (Manual) Platelet Estimate Large Platelets Polychromasia Hypochromasia (manual) Poikilocytosis (manual Anisocytosis (manual) Microcytosis (manual) Ovalocytes Puncture Site pCO2 pO2 HCO3 ABG pH ABG Total CO2 ABG O2 Saturation ABG Base Excess ABG Hemoglobin ABG Carboxyhemoglobin POC ABG HHb (Measured) ABG Methemoglobin [place] Test ABG Potassium A-a O2 Difference Respiratory Index Hgb O2 Saturation Sodium Chloride Glucose Lactate Vent Mode Mechanical Rate FiO2 Tidal Volume PEEP Potassium Carbon Dioxide Anion Gap BUN Creatinine Est GFR ( Amer) Est GFR (Non-Af Amer) POC Glucose (mg/dL) Random Glucose Calcium Phosphorus Magnesium Total Bilirubin AST ALT Alkaline Phosphatase Total Creatine Kinase Total Protein Albumin Globulin Albumin/Globulin Ratio Arterial Blood Potassium Urine Color Urine Clarity Urine pH Ur Specific [employer] Urine Protein Urine Glucose (UA) Urine Ketones Urine Blood Urine Nitrate Urine Bilirubin Urine Urobilinogen Ur Leukocyte Esterase Urine WBC (Auto) Urine RBC (Auto) Ur Squamous Epith Cells Urine Bacteria Ur Random Creatinine U Random Total Protein 89.0 H Complement C3 Complement C4 Fingerstick Blood Sugar Results: 190 Review of Systems - Review of Systems Systems not reviewed;Unavailable: Intubated Critical Care Progress Note - Ventilator Checklist Head of Bed 30 Degrees: Yes Daily Sedation Vacation: Yes Daily Assessment of Readiness to Wean: Yes Daily Spontaneous Breathing Trial: Yes PUD Prophalyxis: Yes DVT Prophylaxis: Yes Oral Care with Chlorhexidine Gluconate {CHG}: Yes - Nutrition Nutrition: Nutrition Category Date Time Status Consistent Carbohydrate [DIET] Diets 07/08/18 Dinner Active Assessment/Plan (1) Aspiration pneumonia Assessment and plan: 52 y/o female with past medical history of Diabetes Mellitus presents to [facility] with c/p cough and malaise for the past 2-3 weeks. coughing associated with vomiting. (+) vomiting food contents. Seen in ED three days earlier dx with UTI & started on Bactrim. Intubated (07/08). Dialyzed (07/08). Neuro: sedated with fentanyl gtt. Pulm: acute respiratory failure, from suspected aspiration pneumonia with recent vomiting episodes x 2 weeks. Patient supposedly started vomiting from taking recent abx for UTI. patient required emergent intubation, lots of vomitus suctioned out. now sedated on vent, PRVC. abx, duonebs. High risk for aspiration pneumonitis/pneumonia. CV: septic shock on three pressors. Hem: no acute issues Renal: Dialyzed (07/08) for NEHA with worsening metabolic acidosis, too unstable for further hemodialysis today. Started on bicarb drip today. Endo: DM type 2, SISS for coverage, q6h. GI: NPO, tube feeds, Glucerna ID: aspiration pneumonitis/pneumonia, and recent UTI. gram negative septic shock, started on Meropenem and gentamicin. DVT proph - heparin sq GI proph - protonix mcintyre for strict I/O's during acute illness RIJ Trialysis (07/08) Left Fem TLC (07/09) Code status - full code Critical Care Time spent 35 minutes Multi-disciplinary rounds were performed with house staff, nursing, speech therapy, respiratory therapy, pharmacy and nutrition with integrated input from the primary team/attending and other consulting services. The documented time is cumulative and includes review of patient data/exams/labs/chart review and examination of the patient on rounds and throughout the day; time is exclusive of any procedures or teaching time. Current Visit: Yes Status: Acute
[2018-07-09] MEDS ORDERED: Vasopressin 40 UNITS in Dextrose 5% In Water 40 ML IV SCH (18:33)
[2018-07-09 21:21] LABS: AMYLASE 52 U/L (30-110); LIPASE 35 U/L (23-300)
[2018-07-09] MEDS: Meropenem 500 MG in Sodium Chloride 0.9% 100 ML IVPB SCH (23:30)
[2018-07-10] MEDS: Albuterol-Ipratrop 3 mg / 0.5 (3 ml) UD INH SCH ×6 (00:01→20:24)
[2018-07-10] MEDS: (Novolog) Insulin Aspart, Recombinant 100 u/ml 10 ml vial SC SCH ×4 (00:09→18:14)
[2018-07-10] MEDS: Sodium Bicarbonate 8.4% 150 MEQ in Sodium Chloride 0.45% 850 ML IV SCH ×2 (02:41→04:04)
[2018-07-10 06:08] LABS: ARTERIAL BLOOD GAS HCO3 25.3 mmol/L (21-28); ARTERIAL BLOOD GAS O2 SAT 96.8 % (95-98); ARTERIAL BLOOD GAS PCO2 35 mm/Hg (35-45); ARTERIAL BLOOD GAS PH 7.45 (7.35-7.45); ARTERIAL BLOOD GAS PO2 69 mm/Hg (80-100); ARTERIAL BLOOD GAS TCO2 25.4 mmol/L (22-28)
[2018-07-10 07:18] LABS: BASO % 0.3 % (0.0-2.0); HEMOGLOBIN 8.2 g/dL (11.0-16.0); LYMPH % 17.4 % (20.0-40.0); MEAN CELL VOLUME 88.1 fL (81.0-99.0); MEAN CORPUSCULAR HEMOGLOBIN 29.9 pg (27.0-31.0); MEAN PLATELET VOLUME 8.6 fL (7.2-11.7); MONO # 0.4 K/uL (0.0-0.8); MONO % 6.7 % (0.0-10.0); NEUT # 4.4 K/uL (1.8-7.0); NEUT % 75.6 % (50.0-75.0); NRBC % 0.3 % (0.0-2.0); RBC 2.74 Mil/uL (3.80-5.20); RED CELL DISTRIBUTION WIDTH 15.8 % (11.5-14.5)
[2018-07-10 07:26] LABS: WHITE BLOOD COUNT 5.8 K/uL (4.8-10.8)
[2018-07-10] MEDS: Vasopressin 40 UNITS in Dextrose 5% In Water 38 ML IV SCH (08:05)
[2018-07-10 08:15] LABS: HEPATITIS B SURFACE AG Negative (NEGATIVE)
[2018-07-10 08:19] LABS: ALB/GLOB RATIO 0.9 (1.0-2.1); CALCIUM 5.8 mg/dl (8.6-10.4)
[2018-07-10 08:20] LABS: HEPATITIS B CORE AB NEGATIVE (NEGATIVE)
[2018-07-10 08:32] LABS: HEPATITIS C ANTIBODY NEGATIVE (NEGATIVE)
--- NOTE | 2018-07-10 08:36 | RAD ---
Date of service: 07/10/2018 HISTORY: on vent COMPARISON: 07/09/2018. FINDINGS: The endotracheal tube terminates 1.7 cm proximal to the key. The nasogastric tube terminates in the stomach. LUNGS: There is little interval change in pulmonary edema, worse in the right lung. PLEURA: No change in suspected layering pleural effusions, no pneumothorax apparent. CARDIOVASCULAR: Normal. OSSEOUS STRUCTURES: No significant abnormalities. VISUALIZED UPPER ABDOMEN: Normal. OTHER FINDINGS: None. IMPRESSION: Little interval change in presumable pulmonary edema and layering pleural effusions, worse on the right. Stable position of support tubes.
[2018-07-10] MEDS: Lactobacillus Acidophilus 500 MU Cap PO SCH ×2 (08:39→20:14)
--- NOTE | 2018-07-10 08:40 | CP.PCM.PN ---
Subjective - Date & Time of Evaluation Date of Evaluation: 07/10/18 Time of Evaluation: 08:20 - Subjective Subjective: Medical Attending note Patient seen and examined at bedside. No events overnight. Unable to ROS secondary to clinical condition. Patient is on 2 pressors and Fentanyl drip. Patient re-evaluated at time Code blue this afternoon; SVT progressed to Vent tach; received Amiodarone bolus, Magnesium, and 1 shock delivered. Appears rhythm converted. Patient had echo prior to event pending official report. Order for subsequent EKG, ANTONIO, and cardiology consult obtained. Objective - Vital Signs/Intake and Output Vital Signs (last 24 hours): Temp Pulse Resp BP Pulse Ox 100.5 F H 105 H 18 139/77 100 07/10/18 04:00 07/10/18 08:00 07/10/18 08:00 07/10/18 08:00 07/10/18 08:00 Intake and Output: 07/10/18 07/10/18 06:59 18:59 Intake Total 2697.7 Output Total 315 Balance 2382.7 - Medications Medications: Current Medications Acetaminophen (Tylenol 325mg Tab) 650 mg PO Q6H PRN PRN Reason: Pain, moderate (4-7) Last Admin: 07/10/18 00:00 Dose: 650 mg Albuterol/Ipratropium (Duoneb 3 Mg/0.5 Mg (3 Ml) Ud) 3 ml INH RQ6 PRN PRN Reason: Wheezing Last Admin: 07/07/18 19:29 Dose: 3 ml Albuterol/Ipratropium (Duoneb 3 Mg/0.5 Mg (3 Ml) Ud) 3 ml INH RQ4 MANOLO Last Admin: 07/10/18 07:54 Dose: 3 ml Dextrose (Dextrose 50% Inj) 0 ml IV STAT PRN; Protocol PRN Reason: Hypoglycemia Protocol Dextrose (Glutose 15) 0 gm PO ONCE PRN; Protocol PRN Reason: Hypoglycemia Protocol Glucagon (Glucagen Diagnostic Kit) 0 mg IM STAT PRN; Protocol PRN Reason: Hypoglycemia Protocol Heparin Sodium (Porcine) (Heparin) 5,000 units SC Q8 MANOLO Last Admin: 07/10/18 06:01 Dose: 5,000 units Hydrocortisone Sodium Succinate (Solu-Cortef) 100 mg IV Q8H MANOLO Last Admin: 07/10/18 08:39 Dose: 100 mg Azithromycin 500 mg/ Sodium (Chloride) 250 mls @ 250 mls/hr IVPB DAILY MANOLO; Protocol Last Admin: 07/09/18 10:24 Dose: 250 mls/hr Dextrose (Dextrose 5% In Water 1000 Ml) 1,000 mls @ 0 mls/hr IV .Q0M PRN; Protocol PRN Reason: Hypoglycemia Protocol Fentanyl Citrate 2,500 mcg/ (Sodium Chloride) 250 mls @ 10.07 mls/hr IV .Q24H MANOLO; Protocol Last Titration: 07/09/18 23:30 Dose: 1 mcg/kg/hr, 5.03 mls/hr Phenylephrine HCl 30 mg/ (Sodium Chloride) 253 mls @ 10.12 mls/hr IV .Q24H PRN; Protocol PRN Reason: TITRATE PER MD ORDER Last Titration: 07/09/18 21:00 Dose: 0 mcg/min, 0 mls/hr Norepinephrine Bitartrate 8 mg (/ Dextrose) 258 mls @ 7.74 mls/hr IV .Q24H PRN; Protocol PRN Reason: TITRATE PER MD ORDER Last Titration: 07/10/18 06:00 Dose: 0 mcg/min, 0 mls/hr Sodium Bicarbonate 150 meq/ (Sodium Chloride) 1,000 mls @ 125 mls/hr IV .Q8H MANOLO Last Admin: 07/10/18 04:04 Dose: Not Given Meropenem 500 mg/ Sodium (Chloride) 100 mls @ 100 mls/hr IVPB Q12H MANOLO; Pro tocol Last Admin: 07/09/18 23:30 Dose: 100 mls/hr Vasopressin 40 units/ Dextrose 42 mls @ 2.52 mls/hr IV .[id number] MANOLO; Protocol Last Admin: 07/09/18 21:25 Dose: Not Given Insulin Aspart (Novolog) 0 unit SC Q6 MANOLO; Protocol Last Admin: 07/10/18 06:00 Dose: 3 u Lactobacillus Acidophilus (Bacid Acidophilus) 1 cap PO Q12H MANOLO Last Admin: 07/10/18 08:39 Dose: 1 cap Ondansetron HCl (Zofran Inj) 4 mg IVP Q6H PRN PRN Reason: Nausea/Vomiting Last Admin: 07/08/18 13:06 Dose: 4 mg Pantoprazole Sodium (Protonix Inj) 40 mg IVP BID MANOLO Last Admin: 07/09/18 18:13 Dose: 40 mg - Labs Labs: 07/10/18 06:52 07/10/18 06:54 - Constitutional Appears: Chronically Ill - Head Exam Head Exam: NORMAL INSPECTION - Eye Exam Eye Exam: absent: Nystagmus, Scleral icterus - Respiratory Exam Respiratory Exam: Decreased Breath Sounds, Rales, Rhonchi Additional comments: intubated on vent - Cardiovascular Exam Cardiovascular Exam: Tachycardia, +S1, +S2 - GI/Abdominal Exam GI & Abdominal Exam: Distended, Soft, Normal Bowel Sounds. absent: Firm, Guarding, Rigid, Tenderness, Rebound - Neurological Exam Additional comments: on fentanyl - Skin Skin Exam: Dry, Normal Color, Warm Assessment and Plan (1) Septic shock Status: Acute (2) Acute respiratory failure Status: Acute (3) Urinary tract infection Status: Acute (4) Acute renal failure Status: Acute (5) Aspiration pneumonia Status: Acute (6) Diabetes mellitus Status: Chronic (7) Ventricular arrhythmia Status: Acute (8) Hyperthyroidism Status: Acute (9) Anemia Status: Acute (10) Prophylactic measure Status: Acute Attending/Attestation - Attestation I have personally seen and examined this patient.: Yes I have fully participated in the care of the patient.: Yes I have reviewed all pertinent clinical information, including history, physical exam and plan: Yes Notes (Text): Patient seen, examined, case discussed with medical territory manager. Patient seen this morning no events overnight on IV antibiotics to cover for both urinary tract infection and pneumonia. Patient on 2 pressors. Patient on fentanyl drip. Late in the day patient called for DEJON MORGAN noted for a CT to progress to V. tach/V. fib patient required amiodarone bolus, magnesium IV as well as fluid bolus. Patient converted to what appears to be sinus however awaiting repeat echo, ANTONIO, and cardiology. I did speak with Dr. Francisco in regards to the event will come and see the patient. I also did speak with patient's who is at bedside. After the DEJON MORGAN speak with patient's as well and regards to acute event. Prior to DEJON MORGAN patient was going to go for dialysis however given the event will hold off dialysis discussed with nephrology. Patient noted to be anemic unclear if it's related to kidney ordered for iron studies, ferritin, reticulocyte count, stool occult times of 3. Also, patient thyroid studies suggestive of hyperthyroidism Thyroid studies are prior to amiodarone being given. Will seek endocrinology consult. 1) Septic Shock Assessment/Plan * Infectious Disease (Dr. Brock) on case-->help appreciated * Criteria: leukocytosis, tachycardia * Source: aspiration pneumonia and urinary tract infection * 07/07/18: Urine: E. Coli * 07/09/18: Urine: No growth * 07/07/18: blood culture: no growth after 3 days X2 * 07/09/18 Blood culture: no growth after 24 hours X2 * MRSA not detected * Azithromycin 500mg IVPB Q daily (active since 07/08/18) * Meropenem 500mg IV Q12 (active since 05/20) * On 2 pressors, On fentanyl 2) Acute Respiratory Failure Pulmonary Edema Assessment/Plan * Chest xray (07/10/18): little interval change in presumable pulmonary edema and layering pleural effusions, worse on the right. stable position of support tubes * Intubated * Solcortef 50mg OV Q12H * Duonebs RQ6H PRN wheezing * Duonebs RQ6H * Sputum culture pending * MRSA screen pending 3) Ventricular Tachycardia Nonstemi Assessment/Plan * Code Blue 07/10: SVT==>VT required amiodarone, magnesium, one shock delivered, ordered for ekg, antonio, echo, and cardiology evaluation * Cardiology Dr Francisco will come to evaluate * Echocardiogram (07/07/18): left ventricle systolic function is borderline, ejection fraction is 45-50%, no aortic regurgitation is present, mitral regurgitation is mild. Mild tricuspid regurgitation. mild pulmonary hypertension, mild pulmonic valvular regurgitation * patient is on amiodarone drip * Monitor electrolytes 4) Urinary Tract Infection Assessment/Plan * 07/07/18: Urine: E. Coli * 07/09/18: Urine: No growth * Meropenem 500mg IV Q12 (active since 05/20) 4) Aspiration Pneumonia Assessment/Plan * Off Azithromycin 5) Diabetes Assessment/Plan * a1c: 7.8 * hypoglycemic protocol * novolog unit subq 6) Acute on Chronic Renal Failure Assessment/Plan * Nephrology (Dr. Hyde) on board--> help appreciated * Second dialysis cancelled secondary to code blue earlier today 7) Hyperthyroidism? Low TSH, and Free T4 Assessment/Plan * Note Thyroid studies taken before amiodarone was given * Patient does not have prior thyroid history * Will seek endocrinology consult * Will repeat in AM 8) Anemia Assessment/Plan * iron normal, TIBC low, iron sat normal, ferritin normal * pending stool occult blood and reticulocte count * B12 normal * Folate Caitlyn 9) Prophylactic measure * Protonix 40mg IV Q12H * Heparin 5000 units subq8H * On 2 pressors * on Fentanyl drip
[2018-07-10] MEDS: Sodium Chloride 0.9% 1,000 ML IV SCH ×2 (10:00→19:54)
--- NOTE | 2018-07-10 10:49 | CARD ---
APPROVED REPORT Date of service: 07/07/2018 EKG Measurement Heart [id number] <Conclusion> Accelerated Junctional rhythm with retrograde conduction Left axis deviation Incomplete right bundle branch block ST & T wave abnormality, consider lateral ischemia Abnormal ECG
--- NOTE | 2018-07-10 10:50 | CARD ---
APPROVED REPORT Date of service: 07/07/2018 EKG Measurement Heart [id number] <Conclusion> Sinus tachycardia Left axis deviation Pulmonary disease pattern Left ventricular hypertrophy with QRS widening ST & T wave abnormality, consider lateral ischemia Abnormal ECG
[2018-07-10 11:44] LABS: IRON 45 ug/dL (37-170)
--- NOTE | 2018-07-10 11:48 | RAD ---
Date of service: 07/08/2018 HISTORY: Evaluate congestion COMPARISON: Comparison chest 07/07/2018 FINDINGS: LUNGS: Mild progression pulmonary venous congestive changes with developing lower lobe alveolar-type infiltrates and probable left with questionable right-sided effusion PLEURA: As above., no pneumothorax apparent. CARDIOVASCULAR: Heart size is borderline enlarged OSSEOUS STRUCTURES: No significant abnormalities. VISUALIZED UPPER ABDOMEN: Normal. OTHER FINDINGS: None. IMPRESSION: Mild progression pulmonary venous congestive changes with developing lower lobe alveolar-type infiltrates and probable left with questionable right-sided effusion
[2018-07-10 11:53] LABS: % IRON SATURATION 22 (20-55); TOTAL IRON BINDING CAPACITY 202 ug/dL (250-450)
[2018-07-10] MEDS: Meropenem 500 MG in Sodium Chloride 0.9% 100 ML IVPB SCH ×2 (12:42→23:36)
[2018-07-10 12:45] LABS: FOLATE 10.9 ng/mL
--- NOTE | 2018-07-10 12:48 | CP.PCM.PN ---
Subjective - Date & Time of Evaluation Date of Evaluation: 07/10/18 Time of Evaluation: 12:40 - Subjective Subjective: Nephrology Consultation Note Assessment: critical Acute Kidney Injury (N17.9) likely due to ATN, r/o GN septic shock, acute respi ailure, UTI/aspiration pneumonitis and pulm edemaf Diabetic chronic Kidney Disease (E11.22) Hypertensive Chronic Kidney Disease (I12.9) Chronic Kidney Disease (N18.3) Stage 3 with 740 mg proteinuria (R80.9) likely due to DM/HTN, baseline cr 1.2 Anemia (D64.9), Hyperphosphatemia (E83.39), Hypocalcemia ? hyperthyroidism. Plan plan for isolated UF today Maintain hemodynamics stable. Avoid hypotension. Patient not on ACEI/ARB due to recent NEHA Monitor Input/Output, daily weights and renal function with basic metabolic panel dose of calcium gluconate 2 gram IVPB today Check GN work up as LIA, Anti dsDNA, ANCA (MPO and CA-3), Anti GBM antibody Anemia work up with TSAT/Ferritin/Vitamin B12/folate Check for 25-OH vitamin D, iPTH work up for adrenal adenoma as outpt. work up for suppressed TSH as per primary team Dose meds/antibiotics for reduced GFR. Avoid fleets enema/magnesium based laxatives. Avoid nephrotoxins/NSAIDs/ iodinated contrast (unless needed emergently) Glycemic control Further work up for as per primary team Thanks for allowing me to participate in care of your patient. Will follow patient with you. Please call if any Qs. d/w family and team. Dr Enrique Richards Office: [phone] Subjective: Noted events overnight. Patients intubated/sedated. on 50% FiO2 Physical Examination: General Appearance: Comfortable, in no acute respiratory distress, ill appearing Vitals reviewed and noted as below Head; Atraumatic, normocephalic ENT: orally intubated EYES: Pupils are equal, round and reactive to light accommodation. Eye muscles and extraocular movement intact. Sclera is anicteric. Neck; supple no lymphadenopathy, no thyromegaly or bruit Lungs: Normal respiratory rate/effort. Breath sounds bilateral with wheeze and rales Heart: Normal rate. s1s2 normal. No rub or gallop. Extremities: pedal edema +. No varicose veins Neurological: Patient is sedated Skin: Warm and dry. Normal turgor. No rash. Palpitation: Normal elasticity for age Abdomen: Abdomen is soft. Bowel sounds +. There is no abdominal tenderness, no guarding/rigidity no organomegaly Psych: unable MSK: no joint tenderness or swelling. Digits and nails normal, no deformity : kidney or bladder not palpable. has mcintyre + Access: femoral shiley Labs/imaging reviewed. Past medical history, past surgical history, family history, social history, allergy reviewed and noted as below Family hx: no hx of CKD. Rest non-contributory work up: 1.4 mm left adrenal adenoma uA 2+ protein 2+ blood c3/c4 normal. HIV/Hep B and C neg TSH <0.02 740 Objective - Vital Signs/Intake and Output Vital Signs (last 24 hours): Temp Pulse Resp BP Pulse Ox 98.8 F 72 20 98/58 L 100 07/10/18 12:00 07/10/18 12:00 07/10/18 12:00 07/10/18 12:00 07/10/18 12:00 Intake and Output: 07/10/18 07/10/18 06:59 18:59 Intake Total 2697.7 652.2 Output Total 315 155 Balance 2382.7 497.2 - Medications Medications: Current Medications Acetaminophen (Tylenol 325mg Tab) 650 mg PO Q6H PRN PRN Reason: Pain, moderate (4-7) Last Admin: 07/10/18 00:00 Dose: 650 mg Albuterol/Ipratropium (Duoneb 3 Mg/0.5 Mg (3 Ml) Ud) 3 ml INH RQ4 MANOLO Last Admin: 07/10/18 11:36 Dose: 3 ml Heparin Sodium (Porcine) (Heparin) 5,000 units SC Q8 MANOLO Last Admin: 07/10/18 06:01 Dose: 5,000 units Hydrocortisone Sodium Succinate (Solu-Cortef) 50 mg IV Q12 MANOLO Last Admin: 07/10/18 10:01 Dose: Not Given Fentanyl Citrate 2,500 mcg/ (Sodium Chloride) 250 mls @ 10.07 mls/hr IV .Q24H MANOLO; Protocol Last Titration: 07/09/18 23:30 Dose: 1 mcg/kg/hr, 5.03 mls/hr Phenylephrine HCl 30 mg/ (Sodium Chloride) 253 mls @ 10.12 mls/hr IV .Q24H PRN; Protocol PRN Reason: TITRATE PER MD ORDER Last Titration: 07/09/18 21:00 Dose: 0 mcg/min, 0 mls/hr Norepinephrine Bitartrate 8 mg (/ Dextrose) 258 mls @ 7.74 mls/hr IV .Q24H PRN; Protocol PRN Reason: TITRATE PER MD ORDER Last Titration: 07/10/18 06:00 Dose: 0 mcg/min, 0 mls/hr Meropenem 500 mg/ Sodium (Chloride) 100 mls @ 100 mls/hr IVPB Q12H MANOLO; Protocol Last Admin: 07/09/18 23:30 Dose: 100 mls/hr Vasopressin 40 units/ Dextrose 40 mls @ 2.4 mls/hr IV .[id number] MANOLO; Protocol Last Admin: 07/10/18 08:05 Dose: 0.03 units/min, 1.8 mls/hr Sodium Chloride (Sodium Chloride 0.9%) 1,000 mls @ 40 mls/hr IV .Q24H MANOLO Last Admin: 07/10/18 10:00 Dose: 40 mls/hr Calcium Gluconate 2,000 mg/ (Sodium Chloride) 270 mls @ 135 mls/hr IVPB ONCE ONE Stop: 07/10/18 13:59 Insulin Aspart (Novolog) 0 unit SC Q6 MANOLO; Protocol Last Admin: 07/10/18 06:00 Dose: 3 u Lactobacillus Acidophilus (Bacid Acidophilus) 1 cap PO Q12H MANOLO Last Admin: 07/10/18 08:39 Dose: 1 cap Ondansetron HCl (Zofran Inj) 4 mg IVP Q6H PRN PRN Reason: Nausea/Vomiting Last Admin: 07/08/18 13:06 Dose: 4 mg Pantoprazole Sodium (Protonix Inj) 40 mg IVP BID MANOLO Last Admin: 07/10/18 09:59 Dose: 40 mg - Labs Labs: 07/10/18 06:52 07/10/18 06:54
--- NOTE | 2018-07-10 12:52 | CP.PCM.PN ---
Subjective - Date & Time of Evaluation Date of Evaluation: 07/10/18 Time of Evaluation: 07:00 - Subjective Subjective: INTUBATED ON PRESSORS FAMILY AT BEDSIDE Objective - Vital Signs/Intake and Output Vital Signs (last 24 hours): Temp Pulse Resp BP Pulse Ox 98.8 F 72 20 98/58 L 100 07/10/18 12:00 07/10/18 12:00 07/10/18 12:00 07/10/18 12:00 07/10/18 12:00 Intake and Output: 07/10/18 07/10/18 06:59 18:59 Intake Total 2697.7 652.2 Output Total 315 155 Balance 2382.7 497.2 - Medications Medications: Current Medications Acetaminophen (Tylenol 325mg Tab) 650 mg PO Q6H PRN PRN Reason: Pain, moderate (4-7) Last Admin: 07/10/18 00:00 Dose: 650 mg Albuterol/Ipratropium (Duoneb 3 Mg/0.5 Mg (3 Ml) Ud) 3 ml INH RQ4 MANOLO Last Admin: 07/10/18 11:36 Dose: 3 ml Heparin Sodium (Porcine) (Heparin) 5,000 units SC Q8 MANOLO Last Admin: 07/10/18 06:01 Dose: 5,000 units Hydrocortisone Sodium Succinate (Solu-Cortef) 50 mg IV Q12 MANOLO Last Admin: 07/10/18 10:01 Dose: Not Given Fentanyl Citrate 2,500 mcg/ (Sodium Chloride) 250 mls @ 10.07 mls/hr IV .Q24H MANOLO; Protocol Last Titration: 07/09/18 23:30 Dose: 1 mcg/kg/hr, 5.03 mls/hr Phenylephrine HCl 30 mg/ (Sodium Chloride) 253 mls @ 10.12 mls/hr IV .Q24H PRN; Protocol PRN Reason: TITRATE PER MD ORDER Last Titration: 07/09/18 21:00 Dose: 0 mcg/min, 0 mls/hr Norepinephrine Bitartrate 8 mg (/ Dextrose) 258 mls @ 7.74 mls/hr IV .Q24H PRN; Protocol PRN Reason: TITRATE PER MD ORDER Last Titration: 07/10/18 06:00 Dose: 0 mcg/min, 0 mls/hr Meropenem 500 mg/ Sodium (Chloride) 100 mls @ 100 mls/hr IVPB Q12H MANOLO; Hans col Last Admin: 07/10/18 12:42 Dose: 100 mls/hr Vasopressin 40 units/ Dextrose 40 mls @ 2.4 mls/hr IV .[id number] MANOLO; Protocol Last Admin: 07/10/18 08:05 Dose: 0.03 units/min, 1.8 mls/hr Sodium Chloride (Sodium Chloride 0.9%) 1,000 mls @ 40 mls/hr IV .Q24H MANOLO Last Admin: 07/10/18 10:00 Dose: 40 mls/hr Calcium Gluconate 2,000 mg/ (Sodium Chloride) 270 mls @ 135 mls/hr IVPB ONCE ONE Stop: 07/10/18 13:59 Last Admin: 07/10/18 12:42 Dose: 135 mls/hr Insulin Aspart (Novolog) 0 unit SC Q6 MANOLO; Protocol Last Admin: 07/10/18 12:43 Dose: 2 u Lactobacillus Acidophilus (Bacid Acidophilus) 1 cap PO Q12H MANOLO Last Admin: 07/10/18 08:39 Dose: 1 cap Ondansetron HCl (Zofran Inj) 4 mg IVP Q6H PRN PRN Reason: Nausea/Vomiting Last Admin: 07/08/18 13:06 Dose: 4 mg Pantoprazole Sodium (Protonix Inj) 40 mg IVP BID MANOLO Last Admin: 07/10/18 09:59 Dose: 40 mg - Labs Labs: 07/10/18 06:52 07/10/18 06:54 - Constitutional Appears: Chronically Ill - Head Exam Head Exam: NORMOCEPHALIC - Eye Exam Eye Exam: absent: Scleral icterus - ENT Exam ENT Exam: Mucous Membranes Dry - Neck Exam Neck Exam: absent: Lymphadenopathy - Respiratory Exam Respiratory Exam: Decreased Breath Sounds - Cardiovascular Exam Cardiovascular Exam: REGULAR RHYTHM - GI/Abdominal Exam GI & Abdominal Exam: Distended, Soft - Rectal Exam Rectal Exam: Deferred - Exam Exam: NORMAL INSPECTION Assessment and Plan (1) NEHA (acute kidney injury) Status: Acute (2) Acute renal failure Status: Acute (3) Acute respiratory failure Status: Acute (4) Aspiration pneumonia Status: Acute (5) Septic shock Status: Acute (6) Urinary tract infection Status: Acute (7) Diabetes mellitus Status: Chronic - Assessment and Plan (Free Text) Assessment: CONT IV RX UTI/ SEPSIS NO NEED TO CONTINUE AMINOGLYCOSIDES BASED ON CURRENT INFO PROGNOSIS GUARDED
[2018-07-10] MEDS ORDERED: Sodium Chloride 0.9% 1,000 ML IV ONE (14:08)
[2018-07-10 14:09] LABS: T3 0.826 nmol/L (1.49-2.60)
--- NOTE | 2018-07-10 14:23 | PCM.RRT ---
Addendum entered and electronically signed by Bhanu Villegas DO 07/10/18 14:47: CODE BLUE NOTE Original Note: NEGATIVE CUTTER Nurses Assessment - Situation Date: 07/10/18 Time NEGATIVE CUTTER was called: 14:00 NEGATIVE CUTTER Responder Arrival Time:: 14:01 NEGATIVE CUTTER Location:: ICU Room Number: 9 NEGATIVE CUTTER Reason for Call: Tachycardia (Vtach) NEGATIVE CUTTER Called By: RN - IV IV Inserted during NEGATIVE CUTTER?: No New IV Insertion Tolerance: Excellent - Respiratory NEGATIVE CUTTER Delivery Method: Face Mask @%, Intubated Was the Patient Intubated?: Yes Was the Patient Placed on a Ventilator?: Yes - Ventilator Settings Mode: PRVC Ventilator Respiratory Rate Settin Ventilator Tidal Volume Settin PEEP/CPAP (cm H2O): 5 SAO2 %: 100 FIO2 (% Oxygen): 50 - Medication Medications Administered During NEGATIVE CUTTER: Amio 150 IVP. Amio drip @ 1 mg / kg/ hr. 1L NS bolus IV. Ca Gluconate IVPB 2000mg/250ml - Vital Signs Vital Signs: inital: BP 195/120 HR 140 Vtach O2 100 on vent rr 20 Post: BP 106/70 HR 65 NSR O2 100 on vent rr 20 - Pamela Coma Scale Coma Scale Eye Opening: To verbal stimuli Coma Scale Motor: Withdraw response to pain - Constitutional Appears: No Acute Distress - Head Head Exam: ATRAUMATIC, NORMAL INSPECTION - Eyes Eye Exam: EOMI, Normal appearance - Cardiovascular Exam Cardiovascular Exam: Tachycardia, +S1, +S2 - GI/Abdominal Exam GI & Abdominal Exam: Soft. absent: Tenderness - Neurological Exam Neurological Exam: Altered. absent: Alert, Awake Plan - Assessment of Findings&Treatment Plan 52F PMH admitted to ICU for emergent HD, f/u ekg, echo, ANTONIO, cmp mag phos f/u dr golden mayers
[2018-07-10] MEDS ORDERED: Amiodarone 360 mg/D5W 200 ml 360 MG/200 ML BAG IV ONE (14:30)
[2018-07-10 14:34] LABS: BASO % 0.9 % (0.0-2.0); EOS % 0.1 % (0.0-4.0); HEMOGLOBIN 7.9 g/dL (11.0-16.0); LYMPH # 1.3 K/uL (1.0-4.3); LYMPH % 24.1 % (20.0-40.0); MEAN CELL VOLUME 88.5 fL (81.0-99.0); MEAN CORPUSCULAR HEMOGLOBIN 30.2 pg (27.0-31.0); MEAN CORPUSCULAR HGB CONC 34.1 g/dL (33.0-37.0); MEAN PLATELET VOLUME 8.1 fL (7.2-11.7); MONO # 0.3 K/uL (0.0-0.8); MONO % 5.3 % (0.0-10.0); NEUT # 3.9 K/uL (1.8-7.0); NEUT % 69.6 % (50.0-75.0); NRBC % 0.2 % (0.0-2.0); RBC 2.63 Mil/uL (3.80-5.20); RED CELL DISTRIBUTION WIDTH 15.9 % (11.5-14.5); WHITE BLOOD COUNT 5.5 K/uL (4.8-10.8)
[2018-07-10 14:42] LABS: FOLATE 10.8 ng/mL
[2018-07-10 14:43] LABS: ARTERIAL BLOOD GAS PCO2 26 mm/Hg (35-45); ARTERIAL BLOOD GAS PH 7.48 (7.35-7.45); ARTERIAL BLOOD GAS PO2 244 mm/Hg (80-100); ARTERIAL BLOOD GAS TCO2 20.2 mmol/L (22-28)
[2018-07-10 14:44] LABS: ARTERIAL BLOOD GAS O2 SAT 99.7 % (95-98)
[2018-07-10 14:46] LABS: ARTERIAL BLOOD GAS FIO2 100 %
[2018-07-10 14:50] LABS: ALB/GLOB RATIO 0.9 (1.0-2.1); CALCIUM 6.2 mg/dl (8.6-10.4)
--- NOTE | 2018-07-10 14:54 | CARD ---
APPROVED REPORT Date of service: 07/08/2018 EXAM: Two-dimensional and M-mode echocardiogram with Doppler and color Doppler. Other Information Quality : Technically LimitedRhythm : NSR INDICATION Dyspnea Mitral Valve Disease RISK FACTORS Diabetes M-Mode DIMENSIONS Left Atrium (MM)3.31 (2.5-4.0cm)IVSd0.97 (0.7-1.1cm) Aortic Root2.61 (2.2-3.7cm)LVDd4.40 (4.0-5.6cm) Aortic Cusp Exc.1.61 (1.5-2.0cm)PWd0.93 (0.7-1.1cm) FS (%) 26 %LVDs3.25 (2.0-3.8cm) LVEF (%)52 (>50%) Aortic Valve AoV Peak Pshmruom809.0cm/Eran Peak GR.4mmHg Mitral Valve MV E Knzfntxr083.1cm/sMV A Zdalpqkq00.1cm/sE/A ratio3.7 TDI E/Lateral E'0.0E/Medial E'0.0 Tricuspid Valve TR Peak [id number]/sTR Peak Gr.[id number] LEFT VENTRICLE The left ventricle is normal size. There is normal left ventricular wall thickness. Left ventricle systolic function is borderline. The Ejection Fraction is 45-50%. Apical regional wall motion abnormalities noted. The left ventricular diastolic function is normal. AORTIC VALVE The aortic valve is normal in structure. No aortic regurgitation is present. There is no aortic valvular stenosis. There is no aortic valvular vegetation. MITRAL VALVE The mitral valve is normal in structure. There is no evidence of mitral valve prolapse. There is no mitral valve stenosis. Mitral regurgitation is mild. TRICUSPID VALVE The tricuspid valve is normal in structure. There is mild tricuspid regurgitation. Right ventricular systolic pressure is estimated at 30-40 mmHg. There is mild pulmonary hypertension. PULMONIC VALVE The pulmonic valve is not well visualized. There is mild pulmonic valvular regurgitation. GREAT VESSELS The aortic root is normal in size. PERICARDIAL EFFUSION There is a small loculated anterior pericardial effusion. <Conclusion> Left ventricle systolic function is borderline. The Ejection Fraction is 45-50%. No aortic regurgitation is present. Mitral regurgitation is mild. There is mild tricuspid regurgitation. There is mild pulmonary hypertension. There is mild pulmonic valvular regurgitation.
[2018-07-10 15:06] LABS: CK-MB 4.05 ng/mL (0.0-3.38)
[2018-07-10 15:30] LABS: TROPONIN I 10.4 ng/mL (0.00-0.120)
--- NOTE | 2018-07-10 15:59 | CP.CCUPN ---
<Anabel Hinkle L - Last Filed: 07/10/18 16:35> CCU Subjective - Physician Review Subjective (Free Text): Resident Critical Care Progress Note Patient examined at bedside. No acute events overnight. Patient is s/p code blue today at around 2PM, had SVTs which progressed to vfib, was given magnesium sulfate, amiodarone, 250 cc bolus NS. Amiodarone drip was started. Patient never lost pulses. HD postponed due to code blue. Critical Care Time Spent (in minutes): 35 CCU Objective - Vital Signs / Intake & Output Vital Signs (Last 4 hours): Vital Signs Temp Pulse Resp BP Pulse Ox 07/10/18 15:26 75 20 97/61 L 100 07/10/18 15:11 76 20 101/62 100 07/10/18 15:07 63 20 86/56 L 100 07/10/18 15:00 65 20 100 07/10/18 14:30 76 20 100 07/10/18 14:20 66 20 90/52 L 100 07/10/18 14:17 69 20 97/60 L 100 07/10/18 14:11 82 20 106/70 100 07/10/18 14:07 83 18 194/157 H 67 L 07/10/18 14:06 107 H 27 H 137/114 H 67 L 07/10/18 14:02 188 H 32 H 122/94 H 07/10/18 14:00 78 15 55 L 07/10/18 13:30 74 20 116/63 100 07/10/18 13:01 71 20 101/46 L 100 07/10/18 13:00 72 20 07/10/18 12:30 70 20 93/50 L 07/10/18 12:00 98.8 F 72 20 98/58 L 100 07/10/18 11:58 74 20 108/57 L 100 Intake and Output (Last 8hrs): Intake & Output 07/10/18 07/10/18 07/10/18 06:59 14:59 22:59 Intake Total 1467.3 815.8 1190.1 Output Total 220 165 5 Balance 1247.3 650.8 1185.1 Weight 123 lb 7.342 oz Intake: IV 247.5 20 0 Intake, IV Amount 1219.8 715.8 1180.1 Left Distal Port 100 Left Distal Port Femoral 40 5 Left Medial Port Femoral 15.8 1.8 Left Proximal Port 1000 Left Proximal Port 660 1140 Femoral R Trialysis #1 75.6 0 33.3 R Trialysis cath #3 25.0 R trialysis cath #4 19.2 Oral 60 Tube Feeding 20 10 Output: Urine 220 165 5 Urine, Voided 220 165 5 Other: # Bowel Movements 0 0 0 - Physical Exam Physical Exam Limitations: Positive for: Altered Mental Status Head: Positive for: Atraumatic, Normocephalic Pupils: Positive for: PERRL Extroacular Muscles: Positive for: EOMI Conjunctiva: Positive for: Normal Mouth: Positive for: Moist Mucous Membranes Respiratory/Chest: Positive for: Good Air Exchange, Rhonchi Cardiovascular: Positive for: Normal S1, S2, Tachycardic Abdomen: Positive for: Normal Bowel Sounds. Negative for: Tenderness, Distention Upper Extremity: Positive for: Normal Inspection. Negative for: Cyanosis, Edema Lower Extremity: Positive for: Normal Inspection. Negative for: Edema, CALF TENDERNESS Skin: Positive for: Warm, Dry, Normal Color Psychiatric: Positive for: Other (sedated) - Medications Active Medications: Active Medications Generic Name Dose Route Start Last Admin Trade Name Freq PRN Reason Stop Dose Admin Acetaminophen 650 mg 07/07/18 20:03 07/10/18 00:00 Tylenol 325mg Tab PO 650 mg Q6H PRN Administration Pain, moderate (4-7) Albuterol/Ipratropium 3 ml 07/09/18 12:00 07/10/18 11:36 Duoneb 3 Mg/0.5 Mg (3 Ml) Ud INH 3 ml RQ4 MANOLO Administration Heparin Sodium (Porcine) 5,000 units 07/08/18 22:00 07/10/18 14:30 Heparin SC 5,000 units Q8 MANOLO Administration Hydrocortisone Sodium Succinate 50 mg 07/10/18 10:00 07/10/18 10:01 Solu-Cortef IV Not Given Q12 [facility] Fentanyl Citrate 2,500 mcg/ 250 mls @ 10.07 mls/hr 07/08/18 14:45 07/10/18 15:06 Sodium Chloride IV Not Given .Q24H [facility] Protocol 2 MCG/KG/HR Phenylephrine HCl 30 mg/ 253 mls @ 10.12 mls/hr 07/08/18 20:07 07/10/18 15:10 Sodium Chloride IV 20 mcg/min .Q24H PRN 10.12 mls/hr TITRATE PER MD ORDER Titration Protocol 20 MCG/MIN Norepinephrine Bitartrate 8 mg 258 mls @ 7.74 mls/hr 07/08/18 23:45 07/10/18 06:00 / Dextrose IV 0 mcg/min .Q24H PRN 0 mls/hr TITRATE PER MD ORDER Titration Protocol 4 MCG/MIN Meropenem 500 mg/ Sodium 100 mls @ 100 mls/hr 07/10/18 00:30 07/10/18 12:42 Chloride IVPB 100 mls/hr Q12H MANOLO Administration Protocol Vasopressin 40 units/ Dextrose 40 mls @ 2.4 mls/hr 07/10/18 09:30 07/10/18 14:10 IV 0.04 units/min .[id number] MANOLO 2.4 mls/hr Titration Protocol 0.04 UNITS/MIN Sodium Chloride 1,000 mls @ 40 mls/hr 07/10/18 09:45 07/10/18 10:00 Sodium Chloride 0.9% IV 40 mls/hr .Q24H MANOLO Administration Amiodarone HCl 540 mg/ 299.8 mls @ 16.6 mls/hr 07/10/18 20:00 Dextrose IV 07/11/18 14:03 ONCE ONE Amiodarone HCl/Dextrose 360 mg in 200 mls @ 33.333 mls/hr 07/10/18 14:30 07/10/18 14:10 Nexterone 360 Mg In D5w 200 Ml (Premix) IV 07/10/18 20:29 33.333 mls/hr .Q6H ONE Administration Protocol 1 MG/MIN Insulin Aspart 0 unit 07/09/18 00:00 07/10/18 12:43 Novolog SC 2 u Q6 MANOLO Administration Protocol Lactobacillus Acidophilus 1 cap 07/08/18 20:00 07/10/18 08:39 Bacid Acidophilus PO 1 cap Q12H MANOLO Administration Ondansetron HCl 4 mg 07/07/18 18:00 07/08/18 13:06 Zofran Inj IVP 4 mg Q6H PRN Administration Nausea/Vomiting Pantoprazole Sodium 40 mg 07/08/18 10:00 07/10/18 09:59 Protonix Inj IVP 40 mg BID MANOLO Administration - Patient Studies Lab Studies: Microbiology Studies 07/09/18 10:32 Gram Stain - Final Trachasp 07/08/18 17:10 Urine Culture - Final Urine,Mcintyre No Growth (<1,000 CFU/ML) 07/07/18 16:47 Blood Culture - Preliminary Blood-Venous NO GROWTH AFTER 48 HOURS 07/07/18 16:47 Blood Culture - Preliminary Blood-Venous NO GROWTH AFTER 48 HOURS 07/08/18 06:21 MRSA Culture (Admit) - Final Naris MRSA NOT DETECTED Lab Studies 07/10/18 07/10/18 07/10/18 Range/Units 14:30 14:30 14:07 WBC 5.5 (4.8-10.8) K/uL RBC 2.63 L (3.80-5.20) Mil/uL Hgb 7.9 L (11.0-16.0) g/dL Hct 23.3 L (34.0-47.0) % MCV 88.5 (81.0-99.0) fL MCH 30.2 (27.0-31.0) pg MCHC 34.1 (33.0-37.0) g/dL RDW 15.9 H (11.5-14.5) % Plt Count 145 (130-400) K/uL MPV 8.1 (7.2-11.7) fL Neut % (Auto) 69.6 (50.0-75.0) % Lymph % (Auto) 24.1 (20.0-40.0) % [place] % (Auto) 5.3 (0.0-10.0) % Eos % (Auto) 0.1 (0.0-4.0) % Baso % (Auto) 0.9 (0.0-2.0) % Neut # (Auto) 3.9 (1.8-7.0) K/uL Lymph # (Auto) 1.3 (1.0-4.3) K/uL [place] # (Auto) 0.3 (0.0-0.8) K/uL Eos # (Auto) 0.0 (0.0-0.7) K/uL Baso # (Auto) 0.0 (0.0-0.2) K/uL Puncture Site Rt femoral pCO2 26 L (35-45) mm/Hg pO2 244 H (80-100) mm/Hg HCO3 23.0 (21-28) mmol/L ABG pH 7.48 H (7.35-7.45) ABG Total CO2 20.2 L (22-28) mmol/L ABG O2 Saturation 99.7 H (95-98) % ABG Base Excess -2.6 L (-2.0-3.0) mmol/L ABG Hemoglobin (11.7-17.4) g/dL ABG Carboxyhemoglobin (0.5-1.5) % POC ABG HHb (Measured) (0.0-5.0) % ABG Methemoglobin (0.0-3.0) % Kevon Test Na ABG Potassium 3.7 (3.6-5.2) mmol/L A-a O2 Difference 437.0 mm/Hg Respiratory Index 1.8 Hgb O2 Saturation (95.0-98.0) % Glucose 296 H (65-105) mg/dl Lactate 6.1 H* (0.7-2.1) mmol/L Vent Mode Mechanical Rate FiO2 100 % Tidal Volume PEEP Crit Value Called To Car Rental Agent Crit Value Called By Richard boone Blood Gas Notified Time 1413 Sodium 142 142.0 (132-148) mmol/L Potassium 3.6 (3.6-5.2) mmol/L Chloride 101 107.0 (98-107) mmol/L Carbon Dioxide 23 (22-30) mmol/L Anion Gap 22 H (10-20) BUN 36 H (7-17) mg/dL Creatinine 2.2 H (0.7-1.2) mg/dL Est GFR ( Amer) 28 Est GFR (Non-Af Amer) 23 POC Glucose (mg/dL) (65-110) mg/dL Random Glucose 231 H (65-105) mg/dL Hemoglobin A1c (4.2-6.5) % Calcium 6.2 L (8.6-10.4) mg/dl Phosphorus 3.1 (2.5-4.5) mg/dL Magnesium 2.6 H (1.6-2.3) mg/dL Iron (37-170) ug/dL TIBC (250-450) ug/dL % Saturation (20-55) Ferritin ng/mL Total Bilirubin 0.7 (0.2-1.3) mg/dL AST 247 H (14-36) U/L ALT 205 H (9-52) U/L Alkaline Phosphatase 73 (38-126) U/L Lactate Dehydrogenase (313-618) U/L Total Creatine Kinase 284 H (30-135) U/L CK-MB (Mass) 4.05 H (0.0-3.38) ng/mL Troponin I 10.4000 H* (0.00-0.120) ng/mL NT-Pro-B Natriuret Pep 21372 H (0-900) pg/mL Total Protein 4.2 L (6.3-8.3) g/dL Albumin 2.0 L (3.5-5.0) g/dL Globulin 2.1 L (2.2-3.9) gm/dL Albumin/Globulin Ratio 0.9 L (1.0-2.1) Amylase (30-110) U/L Lipase (23-300) U/L Vitamin B12 (239-931) pg/mL Folate ng/mL Free T4 (0.78-2.19) ng/dL Total T3 (1.49-2.60) nmol/L TSH 3rd Generation (0.46-4.68) mIU/L Arterial Blood Potassium 3.7 (3.6-5.2) mmol/L Urine Eosinophils (NEGATIVE) Hep Bs Antigen (NEGATIVE) Hep Bs Antibody (NEGATIVE) Hep B Core IgM Ab (NEGATIVE) Hepatitis C Antibody (NEGATIVE) HIV 1&2 Antibody Screen (NEGATIVE) Ur L.pneumophila Ag (NEGATIVE) 07/10/18 07/10/18 07/10/18 Range/Units 13:07 13:07 11:12 WBC (4.8-10.8) K/uL RBC (3.80-5.20) Mil/uL Hgb (11.0-16.0) g/dL Hct (34.0-47.0) % MCV (81.0-99.0) fL MCH (27.0-31.0) pg MCHC (33.0-37.0) g/dL RDW (11.5-14.5) % Plt Count (130-400) K/uL MPV (7.2-11.7) fL Neut % (Auto) (50.0-75.0) % Lymph % (Auto) (20.0-40.0) % [place] % (Auto) (0.0-10.0) % Eos % (Auto) (0.0-4.0) % Baso % (Auto) (0.0-2.0) % Neut # (Auto) (1.8-7.0) K/uL Lymph # (Auto) (1.0-4.3) K/uL [place] # (Auto) (0.0-0.8) K/uL Eos # (Auto) (0.0-0.7) K/uL Baso # (Auto) (0.0-0.2) K/uL Puncture Site pCO2 (35-45) mm/Hg pO2 (80-100) mm/Hg HCO3 (21-28) mmol/L ABG pH (7.35-7.45) ABG Total CO2 (22-28) mmol/L ABG O2 Saturation (95-98) % ABG Base Excess (-2.0-3.0) mmol/L ABG Hemoglobin (11.7-17.4) g/dL ABG Carboxyhemoglobin (0.5-1.5) % POC ABG HHb (Measured) (0.0-5.0) % ABG Methemoglobin (0.0-3.0) % Kevon Test ABG Potassium (3.6-5.2) mmol/L A-a O2 Difference mm/Hg Respiratory Index Hgb O2 Saturation (95.0-98.0) % Glucose (65-105) mg/dl Lactate (0.7-2.1) mmol/L Vent Mode Mechanical Rate FiO2 % Tidal Volume PEEP Crit Value Called To Crit Value Called By Blood Gas Notified Time Sodium (132-148) mmol/L Potassium (3.6-5.2) mmol/L Chloride (98-107) mmol/L Carbon Dioxide (22-30) mmol/L Anion Gap (10-20) BUN (7-17) mg/dL Creatinine (0.7-1.2) mg/dL Est GFR ( Amer) Est GFR (Non-Af Amer) POC Glucose (mg/dL) (65-110) mg/dL Random Glucose (65-105) mg/dL Hemoglobin A1c (4.2-6.5) % Calcium (8.6-10.4) mg/dl Phosphorus (2.5-4.5) mg/dL Magnesium (1.6-2.3) mg/dL Iron (37-170) ug/dL TIBC (250-450) ug/dL % Saturation (20-55) Ferritin 416.0 ng/mL Total Bilirubin (0.2-1.3) mg/dL AST (14-36) U/L ALT (9-52) U/L Alkaline Phosphatase (38-126) U/L Lactate Dehydrogenase 2209 H (313-618) U/L Total Creatine Kinase 286 H (30-135) U/L CK-MB (Mass) (0.0-3.38) ng/mL Troponin I (0.00-0.120) ng/mL NT-Pro-B Natriuret Pep (0-900) pg/mL Total Protein (6.3-8.3) g/dL Albumin (3.5-5.0) g/dL Globulin (2.2-3.9) gm/dL Albumin/Globulin Ratio (1.0-2.1) Amylase (30-110) U/L Lipase (23-300) U/L Vitamin B12 469 (239-931) pg/mL Folate 10.8 10.9 ng/mL Free T4 4.18 H (0.78-2.19) ng/dL Total T3 0.826 L (1.49-2.60) nmol/L TSH 3rd Generation < 0.02 L (0.46-4.68) mIU/L Arterial Blood Potassium (3.6-5.2) mmol/L Urine Eosinophils (NEGATIVE) Hep Bs Antigen (NEGATIVE) Hep Bs Antibody (NEGATIVE) Hep B Core IgM Ab (NEGATIVE) Hepatitis C Antibody (NEGATIVE) HIV 1&2 Antibody Screen (NEGATIVE) Ur L.pneumophila Ag (NEGATIVE) 07/10/18 07/10/18 07/10/18 Range/Units 11:12 06:54 06:52 WBC 5.8 D (4.8-10.8) K/uL RBC 2.74 L (3.80-5.20) Mil/uL Hgb 8.2 L (11.0-16.0) g/dL Hct 24.1 L (34.0-47.0) % MCV 88.1 (81.0-99.0) fL MCH 29.9 (27.0-31.0) pg MCHC 34.0 (33.0-37.0) g/dL RDW 15.8 H (11.5-14.5) % Plt Count 132 (130-400) K/uL MPV 8.6 (7.2-11.7) fL Neut % (Auto) 75.6 H (50.0-75.0) % Lymph % (Auto) 17.4 L (20.0-40.0) % [place] % (Auto) 6.7 (0.0-10.0) % Eos % (Auto) 0.0 (0.0-4.0) % Baso % (Auto) 0.3 (0.0-2.0) % Neut # (Auto) 4.4 (1.8-7.0) K/uL Lymph # (Auto) 1.0 (1.0-4.3) K/uL [place] # (Auto) 0.4 (0.0-0.8) K/uL Eos # (Auto) 0.0 (0.0-0.7) K/uL Baso # (Auto) 0.0 (0.0-0.2) K/uL Puncture Site pCO2 (35-45) mm/Hg pO2 (80-100) mm/Hg HCO3 (21-28) mmol/L ABG pH (7.35-7.45) ABG Total CO2 (22-28) mmol/L ABG O2 Saturation (95-98) % ABG Base Excess (-2.0-3.0) mmol/L ABG Hemoglobin (11.7-17.4) g/dL ABG Carboxyhemoglobin (0.5-1.5) % POC ABG HHb (Measured) (0.0-5.0) % ABG Methemoglobin (0.0-3.0) % Kevon Test ABG Potassium (3.6-5.2) mmol/L A-a O2 Difference mm/Hg Respiratory Index Hgb O2 Saturation (95.0-98.0) % Glucose (65-105) mg/dl Lactate (0.7-2.1) mmol/L Vent Mode Mechanical Rate FiO2 % Tidal Volume PEEP Crit Value Called To Crit Value Called By Blood Gas Notified Time Sodium 142 (132-148) mmol/L Potassium 4.6 (3.6-5.2) mmol/L Chloride 100 (98-107) mmol/L Carbon Dioxide 26 (22-30) mmol/L Anion Gap 20 (10-20) BUN 37 H (7-17) mg/dL Creatinine 2.2 H (0.7-1.2) mg/dL Est GFR ( Amer) 28 Est GFR (Non-Af Amer) 23 POC Glucose (mg/dL) (65-110) mg/dL Random Glucose 231 H (65-105) mg/dL Hemoglobin A1c (4.2-6.5) % Calcium 5.8 L* (8.6-10.4) mg/dl Phosphorus 3.6 (2.5-4.5) mg/dL Magnesium 2.1 (1.6-2.3) mg/dL Iron 45 (37-170) ug/dL TIBC 202 L (250-450) ug/dL % Saturation 22 (20-55) Ferritin ng/mL Total Bilirubin 0.6 (0.2-1.3) mg/dL AST 305 H D (14-36) U/L ALT 205 H D (9-52) U/L Alkaline Phosphatase 74 (38-126) U/L Lactate Dehydrogenase (313-618) U/L Total Creatine Kinase (30-135) U/L CK-MB (Mass) (0.0-3.38) ng/mL Troponin I (0.00-0.120) ng/mL NT-Pro-B Natriuret Pep (0-900) pg/mL Total Protein 4.3 L (6.3-8.3) g/dL Albumin 2.0 L (3.5-5.0) g/dL Globulin 2.3 (2.2-3.9) gm/dL Albumin/Globulin Ratio 0.9 L (1.0-2.1) Amylase (30-110) U/L Lipase (23-300) U/L Vitamin B12 (239-931) pg/mL Folate ng/mL Free T4 (0.78-2.19) ng/dL Total T3 (1.49-2.60) nmol/L TSH 3rd Generation (0.46-4.68) mIU/L Arterial Blood Potassium (3.6-5.2) mmol/L Urine Eosinophils (NEGATIVE) Hep Bs Antigen (NEGATIVE) Hep Bs Antibody (NEGATIVE) Hep B Core IgM Ab (NEGATIVE) Hepatitis C Antibody (NEGATIVE) HIV 1&2 Antibody Screen (NEGATIVE) Ur L.pneumophila Ag (NEGATIVE) 07/10/18 07/10/18 07/10/18 Range/Units 05:53 05:40 00:03 WBC (4.8-10.8) K/uL RBC (3.80-5.20) Mil/uL Hgb (11.0-16.0) g/dL Hct (34.0-47.0) % MCV (81.0-99.0) fL MCH (27.0-31.0) pg MCHC (33.0-37.0) g/dL RDW (11.5-14.5) % Plt Count (130-400) K/uL MPV (7.2-11.7) fL Neut % (Auto) (50.0-75.0) % Lymph % (Auto) (20.0-40.0) % [place] % (Auto) (0.0-10.0) % Eos % (Auto) (0.0-4.0) % Baso % (Auto) (0.0-2.0) % Neut # (Auto) (1.8-7.0) K/uL Lymph # (Auto) (1.0-4.3) K/uL [place] # (Auto) (0.0-0.8) K/uL Eos # (Auto) (0.0-0.7) K/uL Baso # (Auto) (0.0-0.2) K/uL Puncture Site Rb pCO2 35 (35-45) mm/Hg pO2 69 L (80-100) mm/Hg HCO3 25.3 (21-28) mmol/L ABG pH 7.45 (7.35-7.45) ABG Total CO2 25.4 (22-28) mmol/L ABG O2 Saturation 96.8 (95-98) % ABG Base Excess 0.5 (-2.0-3.0) mmol/L ABG Hemoglobin 10.0 L (11.7-17.4) g/dL ABG Carboxyhemoglobin 1.2 (0.5-1.5) % POC ABG HHb (Measured) 3.1 (0.0-5.0) % ABG Methemoglobin 0.8 (0.0-3.0) % Kevon Test Na ABG Potassium (3.6-5.2) mmol/L A-a O2 Difference 244.0 mm/Hg Respiratory Index 3.5 Hgb O2 Saturation 95.0 (95.0-98.0) % Glucose (65-105) mg/dl Lactate (0.7-2.1) mmol/L Vent Mode Prvc Mechanical Rate 18 FiO2 50.0 % Tidal Volume 400 PEEP 5 Crit Value Called To Crit Value Called By Blood Gas Notified Time Sodium (132-148) mmol/L Potassium (3.6-5.2) mmol/L Chloride (98-107) mmol/L Carbon Dioxide (22-30) mmol/L Anion Gap (10-20) BUN (7-17) mg/dL Creatinine (0.7-1.2) mg/dL Est GFR ( Amer) Est GFR (Non-Af Amer) POC Glucose (mg/dL) 270 H 248 H (65-110) mg/dL Random Glucose (65-105) mg/dL Hemoglobin A1c (4.2-6.5) % Calcium (8.6-10.4) mg/dl Phosphorus (2.5-4.5) mg/dL Magnesium (1.6-2.3) mg/dL Iron (37-170) ug/dL TIBC (250-450) ug/dL % Saturation (20-55) Ferritin ng/mL Total Bilirubin (0.2-1.3) mg/dL AST (14-36) U/L ALT (9-52) U/L Alkaline Phosphatase (38-126) U/L Lactate Dehydrogenase (313-618) U/L Total Creatine Kinase (30-135) U/L CK-MB (Mass) (0.0-3.38) ng/mL Troponin I (0.00-0.120) ng/mL NT-Pro-B Natriuret Pep (0-900) pg/mL Total Protein (6.3-8.3) g/dL Albumin (3.5-5.0) g/dL Globulin (2.2-3.9) gm/dL Albumin/Globulin Ratio (1.0-2.1) Amylase (30-110) U/L Lipase (23-300) U/L Vitamin B12 (239-931) pg/mL Folate ng/mL Free T4 (0.78-2.19) ng/dL Total T3 (1.49-2.60) nmol/L TSH 3rd Generation (0.46-4.68) mIU/L Arterial Blood Potassium (3.6-5.2) mmol/L Urine Eosinophils (NEGATIVE) Hep Bs Antigen (NEGATIVE) Hep Bs Antibody (NEGATIVE) Hep B Core IgM Ab (NEGATIVE) Hepatitis C Antibody (NEGATIVE) HIV 1&2 Antibody Screen (NEGATIVE) Ur L.pneumophila Ag (NEGATIVE) 07/09/18 07/09/18 07/09/18 Range/Units 21:34 20:35 20:35 WBC (4.8-10.8) K/uL RBC (3.80-5.20) Mil/uL Hgb (11.0-16.0) g/dL Hct (34.0-47.0) % MCV (81.0-99.0) fL MCH (27.0-31.0) pg MCHC (33.0-37.0) g/dL RDW (11.5-14.5) % Plt Count (130-400) K/uL MPV (7.2-11.7) fL Neut % (Auto) (50.0-75.0) % Lymph % (Auto) (20.0-40.0) % [place] % (Auto) (0.0-10.0) % Eos % (Auto) (0.0-4.0) % Baso % (Auto) (0.0-2.0) % Neut # (Auto) (1.8-7.0) K/uL Lymph # (Auto) (1.0-4.3) K/uL [place] # (Auto) (0.0-0.8) K/uL Eos # (Auto) (0.0-0.7) K/uL Baso # (Auto) (0.0-0.2) K/uL Puncture Site pCO2 (35-45) mm/Hg pO2 (80-100) mm/Hg HCO3 (21-28) mmol/L ABG pH (7.35-7.45) ABG Total CO2 (22-28) mmol/L ABG O2 Saturation (95-98) % ABG Base Excess (-2.0-3.0) mmol/L ABG Hemoglobin (11.7-17.4) g/dL ABG Carboxyhemoglobin (0.5-1.5) % POC ABG HHb (Measured) (0.0-5.0) % ABG Methemoglobin (0.0-3.0) % Kevon Test ABG Potassium (3.6-5.2) mmol/L A-a O2 Difference mm/Hg Respiratory Index Hgb O2 Saturation (95.0-98.0) % Glucose (65-105) mg/dl Lactate (0.7-2.1) mmol/L Vent Mode Mechanical Rate FiO2 % Tidal Volume PEEP Crit Value Called To Crit Value Called By Blood Gas Notified Time Sodium (132-148) mmol/L Potassium (3.6-5.2) mmol/L Chloride (98-107) mmol/L Carbon Dioxide (22-30) mmol/L Anion Gap (10-20) BUN (7-17) mg/dL Creatinine (0.7-1.2) mg/dL Est GFR ( Amer) Est GFR (Non-Af Amer) POC Glucose (mg/dL) (65-110) mg/dL Random Glucose (65-105) mg/dL Hemoglobin A1c (4.2-6.5) % Calcium (8.6-10.4) mg/dl Phosphorus (2.5-4.5) mg/dL Magnesium (1.6-2.3) mg/dL Iron (37-170) ug/dL TIBC (250-450) ug/dL % Saturation (20-55) Ferritin ng/mL Total Bilirubin (0.2-1.3) mg/dL AST (14-36) U/L ALT (9-52) U/L Alkaline Phosphatase (38-126) U/L Lactate Dehydrogenase 2231 H (313-618) U/L Total Creatine Kinase (30-135) U/L CK-MB (Mass) (0.0-3.38) ng/mL Troponin I (0.00-0.120) ng/mL NT-Pro-B Natriuret Pep (0-900) pg/mL Total Protein (6.3-8.3) g/dL Albumin (3.5-5.0) g/dL Globulin (2.2-3.9) gm/dL Albumin/Globulin Ratio (1.0-2.1) Amylase 52 (30-110) U/L Lipase 35 (23-300) U/L Vitamin B12 (239-931) pg/mL Folate ng/mL Free T4 (0.78-2.19) ng/dL Total T3 (1.49-2.60) nmol/L TSH 3rd Generation (0.46-4.68) mIU/L Arterial Blood Potassium (3.6-5.2) mmol/L Urine Eosinophils (NEGATIVE) Hep Bs Antigen (NEGATIVE) Hep Bs Antibody (NEGATIVE) Hep B Core IgM Ab (NEGATIVE) Hepatitis C Antibody (NEGATIVE) HIV 1&2 Antibody Screen Negative (NEGATIVE) Ur L.pneumophila Ag Negative (NEGATIVE) 07/09/18 07/09/18 07/08/18 Range/Units 20:26 17:47 19:17 WBC (4.8-10.8) K/uL RBC (3.80-5.20) Mil/uL Hgb (11.0-16.0) g/dL Hct (34.0-47.0) % MCV (81.0-99.0) fL MCH (27.0-31.0) pg MCHC (33.0-37.0) g/dL RDW (11.5-14.5) % Plt Count (130-400) K/uL MPV (7.2-11.7) fL Neut % (Auto) (50.0-75.0) % Lymph % (Auto) (20.0-40.0) % [place] % (Auto) (0.0-10.0) % Eos % (Auto) (0.0-4.0) % Baso % (Auto) (0.0-2.0) % Neut # (Auto) (1.8-7.0) K/uL Lymph # (Auto) (1.0-4.3) K/uL [place] # (Auto) (0.0-0.8) K/uL Eos # (Auto) (0.0-0.7) K/uL Baso # (Auto) (0.0-0.2) K/uL Puncture Site pCO2 (35-45) mm/Hg pO2 (80-100) mm/Hg HCO3 (21-28) mmol/L ABG pH (7.35-7.45) ABG Total CO2 (22-28) mmol/L ABG O2 Saturation (95-98) % ABG Base Excess (-2.0-3.0) mmol/L ABG Hemoglobin (11.7-17.4) g/dL ABG Carboxyhemoglobin (0.5-1.5) % POC ABG HHb (Measured) (0.0-5.0) % ABG Methemoglobin (0.0-3.0) % Kevon Test ABG Potassium (3.6-5.2) mmol/L A-a O2 Difference mm/Hg Respiratory Index Hgb O2 Saturation (95.0-98.0) % Glucose (65-105) mg/dl Lactate (0.7-2.1) mmol/L Vent Mode Mechanical Rate FiO2 % Tidal Volume PEEP Crit Value Called To Crit Value Called By Blood Gas Notified Time Sodium (132-148) mmol/L Potassium (3.6-5.2) mmol/L Chloride (98-107) mmol/L Carbon Dioxide (22-30) mmol/L Anion Gap (10-20) BUN (7-17) mg/dL Creatinine (0.7-1.2) mg/dL Est GFR ( Amer) Est GFR (Non-Af Amer) POC Glucose (mg/dL) 219 H (65-110) mg/dL Random Glucose (65-105) mg/dL Hemoglobin A1c (4.2-6.5) % Calcium (8.6-10.4) mg/dl Phosphorus (2.5-4.5) mg/dL Magnesium (1.6-2.3) mg/dL Iron (37-170) ug/dL TIBC (250-450) ug/dL % Saturation (20-55) Ferritin ng/mL Total Bilirubin (0.2-1.3) mg/dL AST (14-36) U/L ALT (9-52) U/L Alkaline Phosphatase (38-126) U/L Lactate Dehydrogenase (313-618) U/L Total Creatine Kinase (30-135) U/L CK-MB (Mass) (0.0-3.38) ng/mL Troponin I (0.00-0.120) ng/mL NT-Pro-B Natriuret Pep (0-900) pg/mL Total Protein (6.3-8.3) g/dL Albumin (3.5-5.0) g/dL Globulin (2.2-3.9) gm/dL Albumin/Globulin Ratio (1.0-2.1) Amylase (30-110) U/L Lipase (23-300) U/L Vitamin B12 (239-931) pg/mL Folate ng/mL Free T4 (0.78-2.19) ng/dL Total T3 (1.49-2.60) nmol/L TSH 3rd Generation (0.46-4.68) mIU/L Arterial Blood Potassium (3.6-5.2) mmol/L Urine Eosinophils Negative (NEGATIVE) Hep Bs Antigen (NEGATIVE) Hep Bs Antibody Negative (NEGATIVE) Hep B Core IgM Ab (NEGATIVE) Hepatitis C Antibody (NEGATIVE) HIV 1&2 Antibody Screen (NEGATIVE) Ur L.pneumophila Ag (NEGATIVE) 07/08/18 07/08/18 Range/Units 19:17 06:21 WBC (4.8-10.8) K/uL RBC (3.80-5.20) Mil/uL Hgb (11.0-16.0) g/dL Hct (34.0-47.0) % MCV (81.0-99.0) fL MCH (27.0-31.0) pg MCHC (33.0-37.0) g/dL RDW (11.5-14.5) % Plt Count (130-400) K/uL MPV (7.2-11.7) fL Neut % (Auto) (50.0-75.0) % Lymph % (Auto) (20.0-40.0) % [place] % (Auto) (0.0-10.0) % Eos % (Auto) (0.0-4.0) % Baso % (Auto) (0.0-2.0) % Neut # (Auto) (1.8-7.0) K/uL Lymph # (Auto) (1.0-4.3) K/uL [place] # (Auto) (0.0-0.8) K/uL Eos # (Auto) (0.0-0.7) K/uL Baso # (Auto) (0.0-0.2) K/uL Puncture Site pCO2 (35-45) mm/Hg pO2 (80-100) mm/Hg HCO3 (21-28) mmol/L ABG pH (7.35-7.45) ABG Total CO2 (22-28) mmol/L ABG O2 Saturation (95-98) % ABG Base Excess (-2.0-3.0) mmol/L ABG Hemoglobin (11.7-17.4) g/dL ABG Carboxyhemoglobin (0.5-1.5) % POC ABG HHb (Measured) (0.0-5.0) % ABG Methemoglobin (0.0-3.0) % Kevon Test ABG Potassium (3.6-5.2) mmol/L A-a O2 Difference mm/Hg Respiratory Index Hgb O2 Saturation (95.0-98.0) % Glucose (65-105) mg/dl Lactate (0.7-2.1) mmol/L Vent Mode Mechanical Rate FiO2 % Tidal Volume PEEP Crit Value Called To Crit Value Called By Blood Gas Notified Time Sodium (132-148) mmol/L Potassium (3.6-5.2) mmol/L Chloride (98-107) mmol/L Carbon Dioxide (22-30) mmol/L Anion Gap (10-20) BUN (7-17) mg/dL Creatinine (0.7-1.2) mg/dL Est GFR ( Amer) Est GFR (Non-Af Amer) POC Glucose (mg/dL) (65-110) mg/dL Random Glucose (65-105) mg/dL Hemoglobin A1c 7.8 H (4.2-6.5) % Calcium (8.6-10.4) mg/dl Phosphorus (2.5-4.5) mg/dL Magnesium (1.6-2.3) mg/dL Iron (37-170) ug/dL TIBC (250-450) ug/dL % Saturation (20-55) Ferritin ng/mL Total Bilirubin (0.2-1.3) mg/dL AST (14-36) U/L ALT (9-52) U/L Alkaline Phosphatase (38-126) U/L Lactate Dehydrogenase (313-618) U/L Total Creatine Kinase (30-135) U/L CK-MB (Mass) (0.0-3.38) ng/mL Troponin I (0.00-0.120) ng/mL NT-Pro-B Natriuret Pep (0-900) pg/mL Total Protein (6.3-8.3) g/dL Albumin (3.5-5.0) g/dL Globulin (2.2-3.9) gm/dL Albumin/Globulin Ratio (1.0-2.1) Amylase (30-110) U/L Lipase (23-300) U/L Vitamin B12 (239-931) pg/mL Folate ng/mL Free T4 (0.78-2.19) ng/dL Total T3 (1.49-2.60) nmol/L TSH 3rd Generation (0.46-4.68) mIU/L Arterial Blood Potassium (3.6-5.2) mmol/L Urine Eosinophils (NEGATIVE) Hep Bs Antigen Negative (NEGATIVE) Hep Bs Antibody (NEGATIVE) Hep B Core IgM Ab Negative (NEGATIVE) Hepatitis C Antibody Negative (NEGATIVE) HIV 1&2 Antibody Screen (NEGATIVE) Ur L.pneumophila Ag (NEGATIVE) Laboratory Results - last 24 hr 07/08/18 07/08/18 07/08/18 06:21 19:17 19:17 WBC RBC Hgb Hct MCV MCH MCHC RDW Plt Count MPV Neut % (Auto) Lymph % (Auto) [place] % (Auto) Eos % (Auto) Baso % (Auto) Neut # (Auto) Lymph # (Auto) [place] # (Auto) Eos # (Auto) Baso # (Auto) Puncture Site pCO2 pO2 HCO3 ABG pH ABG Total CO2 ABG O2 Saturation ABG Base Excess ABG Hemoglobin ABG Carboxyhemoglobin POC ABG HHb (Measured) ABG Methemoglobin Kevon Test ABG Potassium A-a O2 Difference Respiratory Index Hgb O2 Saturation Glucose Lactate Vent Mode Mechanical Rate FiO2 Tidal Volume PEEP Crit Value Called To Crit Value Called By Blood Gas Notified Time Sodium Potassium Chloride Carbon Dioxide Anion Gap BUN Creatinine Est GFR ( Amer) Est GFR (Non-Af Amer) POC Glucose (mg/dL) Random Glucose Hemoglobin A1c 7.8 H Calcium Phosphorus Magnesium Iron TIBC % Saturation Ferritin Total Bilirubin AST ALT Alkaline Phosphatase Lactate Dehydrogenase Total Creatine Kinase CK-MB (Mass) Troponin I NT-Pro-B Natriuret Pep Total Protein Albumin Globulin Albumin/Globulin Ratio Amylase Lipase Vitamin B12 Folate Free T4 Total T3 TSH 3rd Generation Arterial Blood Potassium Urine Eosinophils Hep Bs Antigen Negative Hep Bs Antibody Negative Hep B Core IgM Ab Negative Hepatitis C Antibody Negative HIV 1&2 Antibody Screen Ur L.pneumophila Ag 07/09/18 07/09/18 07/09/18 17:47 20:26 20:35 WBC RBC Hgb Hct MCV MCH MCHC RDW Plt Count MPV Neut % (Auto) Lymph % (Auto) [place] % (Auto) Eos % (Auto) Baso % (Auto) Neut # (Auto) Lymph # (Auto) [place] # (Auto) Eos # (Auto) Baso # (Auto) Puncture Site pCO2 pO2 HCO3 ABG pH ABG Total CO2 ABG O2 Saturation ABG Base Excess ABG Hemoglobin ABG Carboxyhemoglobin POC ABG HHb (Measured) ABG Methemoglobin Kevon Test ABG Potassium A-a O2 Difference Respiratory Index Hgb O2 Saturation Glucose Lactate Vent Mode Mechanical Rate FiO2 Tidal Volume PEEP Crit Value Called To Crit Value Called By Blood Gas Notified Time Sodium Potassium Chloride Carbon Dioxide Anion Gap BUN Creatinine Est GFR ( Amer) Est GFR (Non-Af Amer) POC Glucose (mg/dL) 219 H Random Glucose Hemoglobin A1c Calcium Phosphorus Magnesium Iron TIBC % Saturation Ferritin Total Bilirubin AST ALT Alkaline Phosphatase Lactate Dehydrogenase Total Creatine Kinase CK-MB (Mass) Troponin I NT-Pro-B Natriuret Pep Total Protein Albumin Globulin Albumin/Globulin Ratio Amylase Lipase Vitamin B12 Folate Free T4 Total T3 TSH 3rd Generation Arterial Blood Potassium Urine Eosinophils Negative Hep Bs Antigen Hep Bs Antibody Hep B Core IgM Ab Hepatitis C Antibody HIV 1&2 Antibody Screen Negative Ur L.pneumophila Ag 07/09/18 07/09/18 07/10/18 20:35 21:34 00:03 WBC RBC Hgb Hct MCV MCH MCHC RDW Plt Count MPV Neut % (Auto) Lymph % (Auto) [place] % (Auto) Eos % (Auto) Baso % (Auto) Neut # (Auto) Lymph # (Auto) [place] # (Auto) Eos # (Auto) Baso # (Auto) Puncture Site pCO2 pO2 HCO3 ABG pH ABG Total CO2 ABG O2 Saturation ABG Base Excess ABG Hemoglobin ABG Carboxyhemoglobin POC ABG HHb (Measured) ABG Methemoglobin Kevon Test ABG Potassium A-a O2 Difference Respiratory Index Hgb O2 Saturation Glucose Lactate Vent Mode Mechanical Rate FiO2 Tidal Volume PEEP Crit Value Called To Crit Value Called By Blood Gas Notified Time Sodium Potassium Chloride Carbon Dioxide Anion Gap BUN Creatinine Est GFR ( Amer) Est GFR (Non-Af Amer) POC Glucose (mg/dL) 248 H Random Glucose Hemoglobin A1c Calcium Phosphorus Magnesium Iron TIBC % Saturation Ferritin Total Bilirubin AST ALT Alkaline Phosphatase Lactate Dehydrogenase 2231 H Total Creatine Kinase CK-MB (Mass) Troponin I NT-Pro-B Natriuret Pep Total Protein Albumin Globulin Albumin/Globulin Ratio Amylase 52 Lipase 35 Vitamin B12 Folate Free T4 Total T3 TSH 3rd Generation Arterial Blood Potassium Urine Eosinophils Hep Bs Antigen Hep Bs Antibody Hep B Core IgM Ab Hepatitis C Antibody HIV 1&2 Antibody Screen Ur L.pneumophila Ag Negative 07/10/18 07/10/18 07/10/18 05:40 05:53 06:52 WBC 5.8 D RBC 2.74 L Hgb 8.2 L Hct 24.1 L MCV 88.1 MCH 29.9 MCHC 34.0 RDW 15.8 H Plt Count 132 MPV 8.6 Neut % (Auto) 75.6 H Lymph % (Auto) 17.4 L [place] % (Auto) 6.7 Eos % (Auto) 0.0 Baso % (Auto) 0.3 Neut # (Auto) 4.4 Lymph # (Auto) 1.0 [place] # (Auto) 0.4 Eos # (Auto) 0.0 Baso # (Auto) 0.0 Puncture Site Rb pCO2 35 pO2 69 L HCO3 25.3 ABG pH 7.45 ABG Total CO2 25.4 ABG O2 Saturation 96.8 ABG Base Excess 0.5 ABG Hemoglobin 10.0 L ABG Carboxyhemoglobin 1.2 POC ABG HHb (Measured) 3.1 ABG Methemoglobin 0.8 Kevon Test Na ABG Potassium A-a O2 Difference 244.0 Respiratory Index 3.5 Hgb O2 Saturation 95.0 Glucose Lactate Vent Mode Prvc Mechanical Rate 18 FiO2 50.0 Tidal Volume 400 PEEP 5 Crit Value Called To Crit Value Called By Blood Gas Notified Time Sodium Potassium Chloride Carbon Dioxide Anion Gap BUN Creatinine Est GFR ( Amer) Est GFR (Non-Af Amer) POC Glucose (mg/dL) 270 H Random Glucose Hemoglobin A1c Calcium Phosphorus Magnesium Iron TIBC % Saturation Ferritin Total Bilirubin AST ALT Alkaline Phosphatase Lactate Dehydrogenase Total Creatine Kinase CK-MB (Mass) Troponin I NT-Pro-B Natriuret Pep Total Protein Albumin Globulin Albumin/Globulin Ratio Amylase Lipase Vitamin B12 Folate Free T4 Total T3 TSH 3rd Generation Arterial Blood Potassium Urine Eosinophils Hep Bs Antigen Hep Bs Antibody Hep B Core IgM Ab Hepatitis C Antibody HIV 1&2 Antibody Screen Ur L.pneumophila Ag 07/10/18 07/10/18 07/10/18 06:54 11:12 11:12 WBC RBC Hgb Hct MCV MCH MCHC RDW Plt Count MPV Neut % (Auto) Lymph % (Auto) [place] % (Auto) Eos % (Auto) Baso % (Auto) Neut # (Auto) Lymph # (Auto) [place] # (Auto) Eos # (Auto) Baso # (Auto) Puncture Site pCO2 pO2 HCO3 ABG pH ABG Total CO2 ABG O2 Saturation ABG Base Excess ABG Hemoglobin ABG Carboxyhemoglobin POC ABG HHb (Measured) ABG Methemoglobin Kevon Test ABG Potassium A-a O2 Difference Respiratory Index Hgb O2 Saturation Glucose Lactate Vent Mode Mechanical Rate FiO2 Tidal Volume PEEP Crit Value Called To Crit Value Called By Blood Gas Notified Time Sodium 142 Potassium 4.6 Chloride 100 Carbon Dioxide 26 Anion Gap 20 BUN 37 H Creatinine 2.2 H Est GFR ( Amer) 28 Est GFR (Non-Af Amer) 23 POC Glucose (mg/dL) Random Glucose 231 H Hemoglobin A1c Calcium 5.8 L* Phosphorus 3.6 Magnesium 2.1 Iron 45 TIBC 202 L % Saturation 22 Ferritin 416.0 Total Bilirubin 0.6 AST 305 H D ALT 205 H D Alkaline Phosphatase 74 Lactate Dehydrogenase 2209 H Total Creatine Kinase 286 H CK-MB (Mass) Troponin I NT-Pro-B Natriuret Pep Total Protein 4.3 L Albumin 2.0 L Globulin 2.3 Albumin/Globulin Ratio 0.9 L Amylase Lipase Vitamin B12 469 Folate 10.9 Free T4 Total T3 TSH 3rd Generation Arterial Blood Potassium Urine Eosinophils Hep Bs Antigen Hep Bs Antibody Hep B Core IgM Ab Hepatitis C Antibody HIV 1&2 Antibody Screen Ur L.pneumophila Ag 07/10/18 07/10/18 07/10/18 13:07 13:07 14:07 WBC RBC Hgb Hct MCV MCH MCHC RDW Plt Count MPV Neut % (Auto) Lymph % (Auto) [place] % (Auto) Eos % (Auto) Baso % (Auto) Neut # (Auto) Lymph # (Auto) [place] # (Auto) Eos # (Auto) Baso # (Auto) Puncture Site Rt femoral pCO2 26 L pO2 244 H HCO3 23.0 ABG pH 7.48 H ABG Total CO2 20.2 L ABG O2 Saturation 99.7 H ABG Base Excess -2.6 L ABG Hemoglobin ABG Carboxyhemoglobin POC ABG HHb (Measured) ABG Methemoglobin Kevon Test Na ABG Potassium 3.7 A-a O2 Difference 437.0 Respiratory Index 1.8 Hgb O2 Saturation Glucose 296 H Lactate 6.1 H* Vent Mode Mechanical Rate FiO2 100 Tidal Volume PEEP Crit Value Called To Car Rental Agent Crit Value Called By Richard boone Blood Gas Notified Time 1413 Sodium 142.0 Potassium Chloride 107.0 Carbon Dioxide Anion Gap BUN Creatinine Est GFR ( Amer) Est GFR (Non-Af Amer) POC Glucose (mg/dL) Random Glucose Hemoglobin A1c Calcium Phosphorus Magnesium Iron TIBC % Saturation Ferritin Total Bilirubin AST ALT Alkaline Phosphatase Lactate Dehydrogenase Total Creatine Kinase CK-MB (Mass) Troponin I NT-Pro-B Natriuret Pep Total Protein Albumin Globulin Albumin/Globulin Ratio Amylase Lipase Vitamin B12 Folate 10.8 Free T4 4.18 H Total T3 0.826 L TSH 3rd Generation < 0.02 L Arterial Blood Potassium 3.7 Urine Eosinophils Hep Bs Antigen Hep Bs Antibody Hep B Core IgM Ab Hepatitis C Antibody HIV 1&2 Antibody Screen Ur L.pneumophila Ag 07/10/18 07/10/18 14:30 14:30 WBC 5.5 RBC 2.63 L Hgb 7.9 L Hct 23.3 L MCV 88.5 MCH 30.2 MCHC 34.1 RDW 15.9 H Plt Count 145 MPV 8.1 Neut % (Auto) 69.6 Lymph % (Auto) 24.1 [place] % (Auto) 5.3 Eos % (Auto) 0.1 Baso % (Auto) 0.9 Neut # (Auto) 3.9 Lymph # (Auto) 1.3 [place] # (Auto) 0.3 Eos # (Auto) 0.0 Baso # (Auto) 0.0 Puncture Site pCO2 pO2 HCO3 ABG pH ABG Total CO2 ABG O2 Saturation ABG Base Excess ABG Hemoglobin ABG Carboxyhemoglobin POC ABG HHb (Measured) ABG Methemoglobin Kevon Test ABG Potassium A-a O2 Difference Respiratory Index Hgb O2 Saturation Glucose Lactate Vent Mode Mechanical Rate FiO2 Tidal Volume PEEP Crit Value Called To Crit Value Called By Blood Gas Notified Time Sodium 142 Potassium 3.6 Chloride 101 Carbon Dioxide 23 Anion Gap 22 H BUN 36 H Creatinine 2.2 H Est GFR ( Amer) 28 Est GFR (Non-Af Amer) 23 POC Glucose (mg/dL) Random Glucose 231 H Hemoglobin A1c Calcium 6.2 L Phosphorus 3.1 Magnesium 2.6 H Iron TIBC % Saturation Ferritin Total Bilirubin 0.7 AST 247 H ALT 205 H Alkaline Phosphatase 73 Lactate Dehydrogenase Total Creatine Kinase 284 H CK-MB (Mass) 4.05 H Troponin I 10.4000 H* NT-Pro-B Natriuret Pep 89081 H Total Protein 4.2 L Albumin 2.0 L Globulin 2.1 L Albumin/Globulin Ratio 0.9 L Amylase Lipase Vitamin B12 Folate Free T4 Total T3 TSH 3rd Generation Arterial Blood Potassium Urine Eosinophils Hep Bs Antigen Hep Bs Antibody Hep B Core IgM Ab Hepatitis C Antibody HIV 1&2 Antibody Screen Ur L.pneumophila Ag EKG/Cardiology Studies: Cardiology / EKG Studies 07/10/18 14:13 EKG [ELECTROCARDIOGRAM] Stat Comment: Mode Of Transportation: Reason For Exam: vtach Fingerstick Blood Sugar Results: 246 Review of Systems - Review of Systems Systems not reviewed;Unavailable: Intubated Assessment/Plan - Assessment and Plan (Free Text) Assessment: 52 y/o female with past medical history of T2DM presents to [facility] [place] [facility] with c/p cough and malaise for the past 2-3 weeks. coughing associated with vomiting. (+) vomiting food contents. Seen in ED three days earlier dx with UTI & started on Bactrim. Intubated (07/08). Dialyzed (07/08). Plan: Neuro: - sedated with fentanyl gtt - maintain normothermia Pulm: - acute respiratory failure, from suspected aspiration pneumonia with recent vomiting episodes x 2 weeks. High risk for aspiration pneumonitis/pneumonia. - Mycoplasma, legionella negative - Duonebs 2 ml INH RQ4 CV: - maintain MAP > 65 - septic shock on pressors: norepinephrine, phenylephrine, vasopressin - s/p code blue, now on amiodarone drip - Cardiology consulted. Appreciate recs. Heme: - no acute issues - continue to monitor H/H Renal: - NS 40 ccs/hr - Dialyzed (07/08) for NEHA with worsening metabolic acidosis, too unstable for further hemodialysis - Held off on dialysis today s/p code blue Endo: - Type 2 DM - ISS for coverage, q6h - Solu-cortef 50 mg IV Q12 - TSH <0.02, Total T3 0.826, Free T4 4.18 GI: - NPO, tube feeds, Nepro ID: - aspiration pneumonitis/pneumonia, and recent UTI - 07/07 UCx showed E.Coli - 07/08 UCX shows NG - 07/09 bands 17 - Flu, HIV, hepatitis B negative - ID consulted. Appreciate recs. - Merrem 500 mg IV Q12H DVT proph - heparin sq GI proph - protonix Access: mcintyre for strict I/O's during acute illness, RIJ Trialysis (07/08), Left Fem TLC (07/09) Code status - full code Case and plan was reviewed and discussed with Dr. Lorena Hinkle PGY-1 - Date & Time Date: 07/10/18 Time: 08:00 <Thang Carrillo - Last Filed: 07/11/18 08:30> CCU Objective - Vital Signs / Intake & Output Vital Signs (Last 4 hours): Vital Signs Pulse Resp BP Pulse Ox 07/11/18 08:00 105 H 12 100 07/11/18 07:42 83 20 150/83 100 07/11/18 07:34 82 20 100 07/11/18 07:00 79 20 100 07/11/18 06:42 65 20 120/69 100 07/11/18 06:12 70 20 136/76 100 07/11/18 06:00 70 20 120/69 100 07/11/18 05:42 98 H 152/95 H 100 07/11/18 05:12 65 20 126/75 100 07/11/18 05:00 65 20 100 07/11/18 04:42 81 20 143/83 100 Intake and Output (Last 8hrs): Intake & Output 07/10/18 07/11/18 07/11/18 22:59 06:59 14:59 Intake Total 2167.1 1296.0 144.0 Output Total 210 245 30 Balance 1957.1 1051.0 114.0 Weight 125 lb 0.19 oz Intake: IV 149 164.0 Intake, IV Amount 1858.1 832.0 94.0 Left Distal Port Femoral 40 40 5 Left Medial Port Femoral 165.1 279.2 32.4 Left Proximal Port 1420 380 40 Femoral R Trialysis #1 233.0 132.8 16.6 Oral 30 Tube Feeding 130 300 50 Output: Urine 210 245 30 Urethral (Mcintyre) 200 30 Urine, Voided 210 45 Other: # Bowel Movements 0 0 0 - Medications Active Medications: Active Medications Generic Name Dose Route Start Last Admin Trade Name Freq PRN Reason Stop Dose Admin Acetaminophen 650 mg 07/07/18 20:03 07/10/18 00:00 Tylenol 325mg Tab PO 650 mg Q6H PRN Administration Pain, moderate (4-7) Albuterol/Ipratropium 3 ml 07/09/18 12:00 07/11/18 07:56 Duoneb 3 Mg/0.5 Mg (3 Ml) Ud INH 3 ml RQ4 MANOLO Administration Heparin Sodium (Porcine) 5,000 units 07/08/18 22:00 07/11/18 06:16 Heparin SC 5,000 units Q8 MANOLO Administration Hydrocortisone Sodium Succinate 50 mg 07/10/18 10:00 07/10/18 22:00 Solu-Cortef IV 50 mg Q12 MANOLO Administration Phenylephrine HCl 30 mg/ 253 mls @ 10.12 mls/hr 07/08/18 20:07 07/11/18 00:57 Sodium Chloride IV 80 mcg/min .Q24H PRN 40.48 mls/hr TITRATE PER MD ORDER Administration Protocol 20 MCG/MIN Norepinephrine Bitartrate 8 mg 258 mls @ 7.74 mls/hr 07/08/18 23:45 07/10/18 06:00 / Dextrose IV 0 mcg/min .Q24H PRN 0 mls/hr TITRATE PER MD ORDER Titration Protocol 4 MCG/MIN Meropenem 500 mg/ Sodium 100 mls @ 100 mls/hr 07/10/18 00:30 07/10/18 23:36 Chloride IVPB 100 mls/hr Q12H MANOLO Administration Protocol Vasopressin 40 units/ Dextrose 40 mls @ 2.4 mls/hr 07/10/18 09:30 07/11/18 06:00 IV 0.04 units/min .[id number] MANOLO 2.4 mls/hr Administration Protocol 0.04 UNITS/MIN Sodium Chloride 1,000 mls @ 40 mls/hr 07/10/18 09:45 07/10/18 19:54 Sodium Chloride 0.9% IV 40 mls/hr .Q24H MANOLO Administration Fentanyl Citrate 2,500 mcg/ 250 mls @ 11.2 mls/hr 07/10/18 19:00 07/10/18 20:08 Sodium Chloride IV 2 mcg/kg/hr .[id number] MANOLO 11.2 mls/hr Administration Protocol 2 MCG/KG/HR Amiodarone HCl 540 mg/ 300 mls @ 16.6 mls/hr 07/10/18 20:00 07/10/18 20:08 Dextrose IV 07/11/18 14:04 16.6 mls/hr Q18H ONE Administration Potassium Chloride 20 meq in 100 mls @ 50 mls/hr 07/11/18 08:30 Potassium Chloride 20 Meq/100 Ml IVPB 07/11/18 14:29 Q2H MANOLO Insulin Aspart 0 unit 07/11/18 08:28 Novolog SC Q6 MANOLO Protocol Lactobacillus Acidophilus 1 cap 07/08/18 20:00 07/10/18 20:14 Bacid Acidophilus PO 1 cap Q12H MANOLO Administration Methimazole 10 mg 07/11/18 10:00 Tapazole PO TID MANOLO Ondansetron HCl 4 mg 07/07/18 18:00 07/08/18 13:06 Zofran Inj IVP 4 mg Q6H PRN Administration Nausea/Vomiting Pantoprazole Sodium 40 mg 07/11/18 10:00 Protonix Susp PO BID MANOLO - Patient Studies Lab Studies: Microbiology Studies 07/09/18 17:17 Blood Culture - Preliminary Blood NO GROWTH AFTER 24 HOURS 07/09/18 17:16 Blood Culture - Preliminary Blood NO GROWTH AFTER 24 HOURS 07/07/18 16:47 Blood Culture - Preliminary Blood-Venous NO GROWTH AFTER 3 DAYS 07/07/18 16:47 Blood Culture - Preliminary Blood-Venous NO GROWTH AFTER 3 DAYS Lab Studies 07/11/18 07/11/18 07/11/18 Range/Units 06:01 05:49 05:49 WBC (4.8-10.8) K/uL RBC (3.80-5.20) Mil/uL Hgb (11.0-16.0) g/dL Hct (34.0-47.0) % MCV (81.0-99.0) fL MCH (27.0-31.0) pg MCHC (33.0-37.0) g/dL RDW (11.5-14.5) % Plt Count (130-400) K/uL MPV (7.2-11.7) fL Neut % (Auto) (50.0-75.0) % Lymph % (Auto) (20.0-40.0) % [place] % (Auto) (0.0-10.0) % Eos % (Auto) (0.0-4.0) % Baso % (Auto) (0.0-2.0) % Neut # (Auto) (1.8-7.0) K/uL Lymph # (Auto) (1.0-4.3) K/uL [place] # (Auto) (0.0-0.8) K/uL Eos # (Auto) (0.0-0.7) K/uL Baso # (Auto) (0.0-0.2) K/uL Puncture Site pCO2 (35-45) mm/Hg pO2 (80-100) mm/Hg HCO3 (21-28) mmol/L ABG pH (7.35-7.45) ABG Total CO2 (22-28) mmol/L ABG O2 Saturation (95-98) % ABG Base Excess (-2.0-3.0) mmol/L ABG Hemoglobin (11.7-17.4) g/dL ABG Carboxyhemoglobin (0.5-1.5) % POC ABG HHb (Measured) (0.0-5.0) % ABG Methemoglobin (0.0-3.0) % Kevon Test ABG Potassium (3.6-5.2) mmol/L A-a O2 Difference mm/Hg Respiratory Index Hgb O2 Saturation (95.0-98.0) % Sodium 141 (132-148) mmol/l Chloride 104 (98-107) mmol/L Glucose (65-105) mg/dl Lactate (0.7-2.1) mmol/L Vent Mode Mechanical Rate FiO2 % Tidal Volume PEEP Crit Value Called To Crit Value Called By Blood Gas Notified Time Potassium 3.0 L (3.6-5.2) mmol/L Carbon Dioxide 22 (22-30) mmol/L Anion Gap 18 (10-20) BUN 43 H (7-17) mg/dL Creatinine 2.3 H (0.7-1.2) mg/dL Est GFR ( Amer) 27 Est GFR (Non-Af Amer) 22 POC Glucose (mg/dL) 412 H* (65-110) mg/dL Random Glucose 364 H (65-105) mg/dL Hemoglobin A1c (4.2-6.5) % Calcium 6.4 L (8.6-10.4) mg/dl Phosphorus 2.7 (2.5-4.5) mg/dL Magnesium 2.2 (1.6-2.3) mg/dL Iron (37-170) ug/dL TIBC (250-450) ug/dL % Saturation (20-55) Ferritin ng/mL Total Bilirubin 0.6 (0.2-1.3) mg/dL AST 548 H (14-36) U/L ALT 427 H (9-52) U/L Alkaline Phosphatase 96 (38-126) U/L Lactate Dehydrogenase (313-618) U/L Total Creatine Kinase (30-135) U/L CK-MB (Mass) (0.0-3.38) ng/mL Troponin I (0.00-0.120) ng/mL NT-Pro-B Natriuret Pep (0-900) pg/mL Total Protein 4.5 L (6.3-8.3) g/dL Albumin 2.2 L (3.5-5.0) g/dL Globulin 2.3 (2.2-3.9) gm/dL Albumin/Globulin Ratio 0.9 L (1.0-2.1) Vitamin B12 (239-931) pg/mL 25-OH Vitamin D Total (30.0-100.0) NG/ML Folate ng/mL Free T4 3.56 H (0.78-2.19) ng/dL Total T3 (1.49-2.60) nmol/L TSH 3rd Generation < 0.02 L (0.46-4.68) mIU/L Arterial Blood Potassium (3.6-5.2) mmol/L Urine Eosinophils (NEGATIVE) Random Vancomycin ug/mL Hep Bs Antibody (NEGATIVE) Hepatitis C Antibody (NEGATIVE) HIV 1&2 Antibody Screen (NEGATIVE) 07/11/18 07/11/18 07/11/18 Range/Units 05:49 05:49 05:48 WBC 11.1 H (4.8-10.8) K/uL RBC 2.92 L (3.80-5.20) Mil/uL Hgb 8.8 L (11.0-16.0) g/dL Hct 25.6 L (34.0-47.0) % MCV 87.8 (81.0-99.0) fL MCH 30.3 (27.0-31.0) pg MCHC 34.5 (33.0-37.0) g/dL RDW 15.9 H (11.5-14.5) % Plt Count 217 (130-400) K/uL MPV 8.7 (7.2-11.7) fL Neut % (Auto) 78.8 H (50.0-75.0) % Lymph % (Auto) 14.5 L (20.0-40.0) % [place] % (Auto) 6.3 (0.0-10.0) % Eos % (Auto) 0.1 (0.0-4.0) % Baso % (Auto) 0.3 (0.0-2.0) % Neut # (Auto) 8.7 H (1.8-7.0) K/uL Lymph # (Auto) 1.6 (1.0-4.3) K/uL [place] # (Auto) 0.7 (0.0-0.8) K/uL Eos # (Auto) 0.0 (0.0-0.7) K/uL Baso # (Auto) 0.0 (0.0-0.2) K/uL Puncture Site pCO2 (35-45) mm/Hg pO2 (80-100) mm/Hg HCO3 (21-28) mmol/L ABG pH (7.35-7.45) ABG Total CO2 (22-28) mmol/L ABG O2 Saturation (95-98) % ABG Base Excess (-2.0-3.0) mmol/L ABG Hemoglobin (11.7-17.4) g/dL ABG Carboxyhemoglobin (0.5-1.5) % POC ABG HHb (Measured) (0.0-5.0) % ABG Methemoglobin (0.0-3.0) % Kevon Test ABG Potassium (3.6-5.2) mmol/L A-a O2 Difference mm/Hg Respiratory Index Hgb O2 Saturation (95.0-98.0) % Sodium (132-148) mmol/l Chloride (98-107) mmol/L Glucose (65-105) mg/dl Lactate (0.7-2.1) mmol/L Vent Mode Mechanical Rate FiO2 % Tidal Volume PEEP Crit Value Called To Crit Value Called By Blood Gas Notified Time Potassium (3.6-5.2) mmol/L Carbon Dioxide (22-30) mmol/L Anion Gap (10-20) BUN (7-17) mg/dL Creatinine (0.7-1.2) mg/dL Est GFR ( Amer) Est GFR (Non-Af Amer) POC Glucose (mg/dL) (65-110) mg/dL Random Glucose (65-105) mg/dL Hemoglobin A1c (4.2-6.5) % Calcium (8.6-10.4) mg/dl Phosphorus (2.5-4.5) mg/dL Magnesium (1.6-2.3) mg/dL Iron (37-170) ug/dL TIBC (250-450) ug/dL % Saturation (20-55) Ferritin ng/mL Total Bilirubin (0.2-1.3) mg/dL AST (14-36) U/L ALT (9-52) U/L Alkaline Phosphatase (38-126) U/L Lactate Dehydrogenase (313-618) U/L Total Creatine Kinase (30-135) U/L CK-MB (Mass) (0.0-3.38) ng/mL Troponin I (0.00-0.120) ng/mL NT-Pro-B Natriuret Pep (0-900) pg/mL Total Protein (6.3-8.3) g/dL Albumin (3.5-5.0) g/dL Globulin (2.2-3.9) gm/dL Albumin/Globulin Ratio (1.0-2.1) Vitamin B12 (239-931) pg/mL 25-OH Vitamin D Total < 12.8 L (30.0-100.0) NG/ML Folate ng/mL Free T4 (0.78-2.19) ng/dL Total T3 (1.49-2.60) nmol/L TSH 3rd Generation (0.46-4.68) mIU/L Arterial Blood Potassium (3.6-5.2) mmol/L Urine Eosinophils (NEGATIVE) Random Vancomycin < 5.0 ug/mL Hep Bs Antibody (NEGATIVE) Hepatitis C Antibody (NEGATIVE) HIV 1&2 Antibody Screen (NEGATIVE) 07/11/18 07/10/18 07/10/18 Range/Units 05:20 23:43 20:53 WBC (4.8-10.8) K/uL RBC (3.80-5.20) Mil/uL Hgb (11.0-16.0) g/dL Hct (34.0-47.0) % MCV (81.0-99.0) fL MCH (27.0-31.0) pg MCHC (33.0-37.0) g/dL RDW (11.5-14.5) % Plt Count (130-400) K/uL MPV (7.2-11.7) fL Neut % (Auto) (50.0-75.0) % Lymph % (Auto) (20.0-40.0) % [place] % (Auto) (0.0-10.0) % Eos % (Auto) (0.0-4.0) % Baso % (Auto) (0.0-2.0) % Neut # (Auto) (1.8-7.0) K/uL Lymph # (Auto) (1.0-4.3) K/uL [place] # (Auto) (0.0-0.8) K/uL Eos # (Auto) (0.0-0.7) K/uL Baso # (Auto) (0.0-0.2) K/uL Puncture Site Rr pCO2 22 L (35-45) mm/Hg pO2 137 H (80-100) mm/Hg HCO3 23.7 (21-28) mmol/L ABG pH 7.56 H (7.35-7.45) ABG Total CO2 20.4 L (22-28) mmol/L ABG O2 Saturation 99.2 H (95-98) % ABG Base Excess -1.6 (-2.0-3.0) mmol/L ABG Hemoglobin 9.0 L (11.7-17.4) g/dL ABG Carboxyhemoglobin 1.2 (0.5-1.5) % POC ABG HHb (Measured) 0.8 (0.0-5.0) % ABG Methemoglobin 0.8 (0.0-3.0) % Kevon Test Na ABG Potassium (3.6-5.2) mmol/L A-a O2 Difference 335.0 mm/Hg Respiratory Index 2.4 Hgb O2 Saturation 97.2 (95.0-98.0) % Sodium 141 (132-148) mmol/l Chloride 101 (98-107) mmol/L Glucose (65-105) mg/dl Lactate (0.7-2.1) mmol/L Vent Mode Prvc Mechanical Rate 20 FiO2 70.0 % Tidal Volume 450 PEEP 5 Crit Value Called To Crit Value Called By Blood Gas Notified Time Potassium 3.5 L (3.6-5.2) mmol/L Carbon Dioxide 20 L (22-30) mmol/L Anion Gap 24 H (10-20) BUN 42 H (7-17) mg/dL Creatinine 2.2 H (0.7-1.2) mg/dL Est GFR ( Amer) 28 Est GFR (Non-Af Amer) 23 POC Glucose (mg/dL) 307 H (65-110) mg/dL Random Glucose 302 H (65-105) mg/dL Hemoglobin A1c (4.2-6.5) % Calcium 6.3 L (8.6-10.4) mg/dl Phosphorus 3.4 (2.5-4.5) mg/dL Magnesium 2.4 H (1.6-2.3) mg/dL Iron (37-170) ug/dL TIBC (250-450) ug/dL % Saturation (20-55) Ferritin ng/mL Total Bilirubin 0.8 (0.2-1.3) mg/dL AST 536 H D (14-36) U/L ALT 366 H D (9-52) U/L Alkaline Phosphatase 82 (38-126) U/L Lactate Dehydrogenase (313-618) U/L Total Creatine Kinase 314 H (30-135) U/L CK-MB (Mass) 2.98 (0.0-3.38) ng/mL Troponin I 10.4000 H* (0.00-0.120) ng/mL NT-Pro-B Natriuret Pep (0-900) pg/mL Total Protein 4.4 L (6.3-8.3) g/dL Albumin 2.1 L (3.5-5.0) g/dL Globulin 2.3 (2.2-3.9) gm/dL Albumin/Globulin Ratio 0.9 L (1.0-2.1) Vitamin B12 (239-931) pg/mL 25-OH Vitamin D Total (30.0-100.0) NG/ML Folate ng/mL Free T4 (0.78-2.19) ng/dL Total T3 (1.49-2.60) nmol/L TSH 3rd Generation (0.46-4.68) mIU/L Arterial Blood Potassium (3.6-5.2) mmol/L Urine Eosinophils (NEGATIVE) Random Vancomycin ug/mL Hep Bs Antibody (NEGATIVE) Hepatitis C Antibody (NEGATIVE) HIV 1&2 Antibody Screen (NEGATIVE) 07/10/18 07/10/18 07/10/18 Range/Units 20:53 17:45 14:30 WBC 12.4 H D 5.5 (4.8-10.8) K/uL RBC 2.92 L 2.63 L (3.80-5.20) Mil/uL Hgb 8.7 L 7.9 L (11.0-16.0) g/dL Hct 25.7 L 23.3 L (34.0-47.0) % MCV 87.8 88.5 (81.0-99.0) fL MCH 29.6 30.2 (27.0-31.0) pg MCHC 33.8 34.1 (33.0-37.0) g/dL RDW 15.6 H 15.9 H (11.5-14.5) % Plt Count 222 145 (130-400) K/uL MPV 8.2 8.1 (7.2-11.7) fL Neut % (Auto) 84.2 H 69.6 (50.0-75.0) % Lymph % (Auto) 10.8 L 24.1 (20.0-40.0) % [place] % (Auto) 4.5 5.3 (0.0-10.0) % Eos % (Auto) 0.1 0.1 (0.0-4.0) % Baso % (Auto) 0.4 0.9 (0.0-2.0) % Neut # (Auto) 10.4 H 3.9 (1.8-7.0) K/uL Lymph # (Auto) 1.3 1.3 (1.0-4.3) K/uL [place] # (Auto) 0.6 0.3 (0.0-0.8) K/uL Eos # (Auto) 0.0 0.0 (0.0-0.7) K/uL Baso # (Auto) 0.0 0.0 (0.0-0.2) K/uL Puncture Site pCO2 (35-45) mm/Hg pO2 (80-100) mm/Hg HCO3 (21-28) mmol/L ABG pH (7.35-7.45) ABG Total CO2 (22-28) mmol/L ABG O2 Saturation (95-98) % ABG Base Excess (-2.0-3.0) mmol/L ABG Hemoglobin (11.7-17.4) g/dL ABG Carboxyhemoglobin (0.5-1.5) % POC ABG HHb (Measured) (0.0-5.0) % ABG Methemoglobin (0.0-3.0) % [place] Test ABG Potassium (3.6-5.2) mmol/L A-a O2 Difference mm/Hg Respiratory Index Hgb O2 Saturation (95.0-98.0) % Sodium (132-148) mmol/l Chloride (98-107) mmol/L Glucose (65-105) mg/dl Lactate (0.7-2.1) mmol/L Vent Mode Mechanical Rate FiO2 % Tidal Volume PEEP Crit Value Called To Crit Value Called By Blood Gas Notified Time Potassium (3.6-5.2) mmol/L Carbon Dioxide (22-30) mmol/L Anion Gap (10-20) BUN (7-17) mg/dL Creatinine (0.7-1.2) mg/dL Est GFR ( Amer) Est GFR (Non-Af Amer) POC Glucose (mg/dL) 290 H (65-110) mg/dL Random Glucose (65-105) mg/dL Hemoglobin A1c (4.2-6.5) % Calcium (8.6-10.4) mg/dl Phosphorus (2.5-4.5) mg/dL Magnesium (1.6-2.3) mg/dL Iron (37-170) ug/dL TIBC (250-450) ug/dL % Saturation (20-55) Ferritin ng/mL Total Bilirubin (0.2-1.3) mg/dL AST (14-36) U/L ALT (9-52) U/L Alkaline Phosphatase (38-126) U/L Lactate Dehydrogenase (313-618) U/L Total Creatine Kinase (30-135) U/L CK-MB (Mass) (0.0-3.38) ng/mL Troponin I (0.00-0.120) ng/mL NT-Pro-B Natriuret Pep (0-900) pg/mL Total Protein (6.3-8.3) g/dL Albumin (3.5-5.0) g/dL Globulin (2.2-3.9) gm/dL Albumin/Globulin Ratio (1.0-2.1) Vitamin B12 (239-931) pg/mL 25-OH Vitamin D Total (30.0-100.0) NG/ML Folate ng/mL Free T4 (0.78-2.19) ng/dL Total T3 (1.49-2.60) nmol/L TSH 3rd Generation (0.46-4.68) mIU/L Arterial Blood Potassium (3.6-5.2) mmol/L Urine Eosinophils (NEGATIVE) Random Vancomycin ug/mL Hep Bs Antibody (NEGATIVE) Hepatitis C Antibody (NEGATIVE) HIV 1&2 Antibody Screen (NEGATIVE) 07/10/18 07/10/18 07/10/18 Range/Units 14:30 14:07 13:07 WBC (4.8-10.8) K/uL RBC (3.80-5.20) Mil/uL Hgb (11.0-16.0) g/dL Hct (34.0-47.0) % MCV (81.0-99.0) fL MCH (27.0-31.0) pg MCHC (33.0-37.0) g/dL RDW (11.5-14.5) % Plt Count (130-400) K/uL MPV (7.2-11.7) fL Neut % (Auto) (50.0-75.0) % Lymph % (Auto) (20.0-40.0) % [place] % (Auto) (0.0-10.0) % Eos % (Auto) (0.0-4.0) % Baso % (Auto) (0.0-2.0) % Neut # (Auto) (1.8-7.0) K/uL Lymph # (Auto) (1.0-4.3) K/uL [place] # (Auto) (0.0-0.8) K/uL Eos # (Auto) (0.0-0.7) K/uL Baso # (Auto) (0.0-0.2) K/uL Puncture Site Rt femoral pCO2 26 L (35-45) mm/Hg pO2 244 H (80-100) mm/Hg HCO3 23.0 (21-28) mmol/L ABG pH 7.48 H (7.35-7.45) ABG Total CO2 20.2 L (22-28) mmol/L ABG O2 Saturation 99.7 H (95-98) % ABG Base Excess -2.6 L (-2.0-3.0) mmol/L ABG Hemoglobin (11.7-17.4) g/dL ABG Carboxyhemoglobin (0.5-1.5) % POC ABG HHb (Measured) (0.0-5.0) % ABG Methemoglobin (0.0-3.0) % Kevon Test Na ABG Potassium 3.7 (3.6-5.2) mmol/L A-a O2 Difference 437.0 mm/Hg Respiratory Index 1.8 Hgb O2 Saturation (95.0-98.0) % Sodium 142 142.0 (132-148) mmol/l Chloride 101 107.0 (98-107) mmol/L Glucose 296 H (65-105) mg/dl Lactate 6.1 H* (0.7-2.1) mmol/L Vent Mode Mechanical Rate FiO2 100 % Tidal Volume PEEP Crit Value Called To Car Rental Agent Crit Value Called By Richard boone Blood Gas Notified Time 1413 Potassium 3.6 (3.6-5.2) mmol/L Carbon Dioxide 23 (22-30) mmol/L Anion Gap 22 H (10-20) BUN 36 H (7-17) mg/dL Creatinine 2.2 H (0.7-1.2) mg/dL Est GFR ( Amer) 28 Est GFR (Non-Af Amer) 23 POC Glucose (mg/dL) (65-110) mg/dL Random Glucose 231 H (65-105) mg/dL Hemoglobin A1c (4.2-6.5) % Calcium 6.2 L (8.6-10.4) mg/dl Phosphorus 3.1 (2.5-4.5) mg/dL Magnesium 2.6 H (1.6-2.3) mg/dL Iron (37-170) ug/dL TIBC (250-450) ug/dL % Saturation (20-55) Ferritin ng/mL Total Bilirubin 0.7 (0.2-1.3) mg/dL AST 247 H (14-36) U/L ALT 205 H (9-52) U/L Alkaline Phosphatase 73 (38-126) U/L Lactate Dehydrogenase (313-618) U/L Total Creatine Kinase 284 H (30-135) U/L CK-MB (Mass) 4.05 H (0.0-3.38) ng/mL Troponin I 10.4000 H* (0.00-0.120) ng/mL NT-Pro-B Natriuret Pep 63610 H (0-900) pg/mL Total Protein 4.2 L (6.3-8.3) g/dL Albumin 2.0 L (3.5-5.0) g/dL Globulin 2.1 L (2.2-3.9) gm/dL Albumin/Globulin Ratio 0.9 L (1.0-2.1) Vitamin B12 (239-931) pg/mL 25-OH Vitamin D Total (30.0-100.0) NG/ML Folate 10.8 ng/mL Free T4 (0.78-2.19) ng/dL Total T3 0.826 L (1.49-2.60) nmol/L TSH 3rd Generation < 0.02 L (0.46-4.68) mIU/L Arterial Blood Potassium 3.7 (3.6-5.2) mmol/L Urine Eosinophils (NEGATIVE) Random Vancomycin ug/mL Hep Bs Antibody (NEGATIVE) Hepatitis C Antibody (NEGATIVE) HIV 1&2 Antibody Screen (NEGATIVE) 07/10/18 07/10/18 07/10/18 Range/Units 13:07 11:13 11:12 WBC (4.8-10.8) K/uL RBC (3.80-5.20) Mil/uL Hgb (11.0-16.0) g/dL Hct (34.0-47.0) % MCV (81.0-99.0) fL MCH (27.0-31.0) pg MCHC (33.0-37.0) g/dL RDW (11.5-14.5) % Plt Count (130-400) K/uL MPV (7.2-11.7) fL Neut % (Auto) (50.0-75.0) % Lymph % (Auto) (20.0-40.0) % [place] % (Auto) (0.0-10.0) % Eos % (Auto) (0.0-4.0) % Baso % (Auto) (0.0-2.0) % Neut # (Auto) (1.8-7.0) K/uL Lymph # (Auto) (1.0-4.3) K/uL [place] # (Auto) (0.0-0.8) K/uL Eos # (Auto) (0.0-0.7) K/uL Baso # (Auto) (0.0-0.2) K/uL Puncture Site pCO2 (35-45) mm/Hg pO2 (80-100) mm/Hg HCO3 (21-28) mmol/L ABG pH (7.35-7.45) ABG Total CO2 (22-28) mmol/L ABG O2 Saturation (95-98) % ABG Base Excess (-2.0-3.0) mmol/L ABG Hemoglobin (11.7-17.4) g/dL ABG Carboxyhemoglobin (0.5-1.5) % POC ABG HHb (Measured) (0.0-5.0) % ABG Methemoglobin (0.0-3.0) % Kevon Test ABG Potassium (3.6-5.2) mmol/L A-a O2 Difference mm/Hg Respiratory Index Hgb O2 Saturation (95.0-98.0) % Sodium (132-148) mmol/l Chloride (98-107) mmol/L Glucose (65-105) mg/dl Lactate (0.7-2.1) mmol/L Vent Mode Mechanical Rate FiO2 % Tidal Volume PEEP Crit Value Called To Crit Value Called By Blood Gas Notified Time Potassium (3.6-5.2) mmol/L Carbon Dioxide (22-30) mmol/L Anion Gap (10-20) BUN (7-17) mg/dL Creatinine (0.7-1.2) mg/dL Est GFR ( Amer) Est GFR (Non-Af Amer) POC Glucose (mg/dL) 246 H (65-110) mg/dL Random Glucose (65-105) mg/dL Hemoglobin A1c (4.2-6.5) % Calcium (8.6-10.4) mg/dl Phosphorus (2.5-4.5) mg/dL Magnesium (1.6-2.3) mg/dL Iron (37-170) ug/dL TIBC (250-450) ug/dL % Saturation (20-55) Ferritin 416.0 ng/mL Total Bilirubin (0.2-1.3) mg/dL AST (14-36) U/L ALT (9-52) U/L Alkaline Phosphatase (38-126) U/L Lactate Dehydrogenase 2209 H (313-618) U/L Total Creatine Kinase 286 H (30-135) U/L CK-MB (Mass) (0.0-3.38) ng/mL Troponin I (0.00-0.120) ng/mL NT-Pro-B Natriuret Pep (0-900) pg/mL Total Protein (6.3-8.3) g/dL Albumin (3.5-5.0) g/dL Globulin (2.2-3.9) gm/dL Albumin/Globulin Ratio (1.0-2.1) Vitamin B12 469 (239-931) pg/mL 25-OH Vitamin D Total (30.0-100.0) NG/ML Folate 10.9 ng/mL Free T4 4.18 H (0.78-2.19) ng/dL Total T3 (1.49-2.60) nmol/L TSH 3rd Generation (0.46-4.68) mIU/L Arterial Blood Potassium (3.6-5.2) mmol/L Urine Eosinophils (NEGATIVE) Random Vancomycin ug/mL Hep Bs Antibody (NEGATIVE) Hepatitis C Antibody (NEGATIVE) HIV 1&2 Antibody Screen (NEGATIVE) 07/10/18 07/09/18 07/09/18 Range/Units 11:12 20:35 20:26 WBC (4.8-10.8) K/uL RBC (3.80-5.20) Mil/uL Hgb (11.0-16.0) g/dL Hct (34.0-47.0) % MCV (81.0-99.0) fL MCH (27.0-31.0) pg MCHC (33.0-37.0) g/dL RDW (11.5-14.5) % Plt Count (130-400) K/uL MPV (7.2-11.7) fL Neut % (Auto) (50.0-75.0) % Lymph % (Auto) (20.0-40.0) % [place] % (Auto) (0.0-10.0) % Eos % (Auto) (0.0-4.0) % Baso % (Auto) (0.0-2.0) % Neut # (Auto) (1.8-7.0) K/uL Lymph # (Auto) (1.0-4.3) K/uL [place] # (Auto) (0.0-0.8) K/uL Eos # (Auto) (0.0-0.7) K/uL Baso # (Auto) (0.0-0.2) K/uL Puncture Site pCO2 (35-45) mm/Hg pO2 (80-100) mm/Hg HCO3 (21-28) mmol/L ABG pH (7.35-7.45) ABG Total CO2 (22-28) mmol/L ABG O2 Saturation (95-98) % ABG Base Excess (-2.0-3.0) mmol/L ABG Hemoglobin (11.7-17.4) g/dL ABG Carboxyhemoglobin (0.5-1.5) % POC ABG HHb (Measured) (0.0-5.0) % ABG Methemoglobin (0.0-3.0) % Kevon Test ABG Potassium (3.6-5.2) mmol/L A-a O2 Difference mm/Hg Respiratory Index Hgb O2 Saturation (95.0-98.0) % Sodium (132-148) mmol/l Chloride (98-107) mmol/L Glucose (65-105) mg/dl Lactate (0.7-2.1) mmol/L Vent Mode Mechanical Rate FiO2 % Tidal Volume PEEP Crit Value Called To Crit Value Called By Blood Gas Notified Time Potassium (3.6-5.2) mmol/L Carbon Dioxide (22-30) mmol/L Anion Gap (10-20) BUN (7-17) mg/dL Creatinine (0.7-1.2) mg/dL Est GFR ( Amer) Est GFR (Non-Af Amer) POC Glucose (mg/dL) (65-110) mg/dL Random Glucose (65-105) mg/dL Hemoglobin A1c (4.2-6.5) % Calcium (8.6-10.4) mg/dl Phosphorus (2.5-4.5) mg/dL Magnesium (1.6-2.3) mg/dL Iron 45 (37-170) ug/dL TIBC 202 L (250-450) ug/dL % Saturation 22 (20-55) Ferritin ng/mL Total Bilirubin (0.2-1.3) mg/dL AST (14-36) U/L ALT (9-52) U/L Alkaline Phosphatase (38-126) U/L Lactate Dehydrogenase (313-618) U/L Total Creatine Kinase (30-135) U/L CK-MB (Mass) (0.0-3.38) ng/mL Troponin I (0.00-0.120) ng/mL NT-Pro-B Natriuret Pep (0-900) pg/mL Total Protein (6.3-8.3) g/dL Albumin (3.5-5.0) g/dL Globulin (2.2-3.9) gm/dL Albumin/Globulin Ratio (1.0-2.1) Vitamin B12 (239-931) pg/mL 25-OH Vitamin D Total (30.0-100.0) NG/ML Folate ng/mL Free T4 (0.78-2.19) ng/dL Total T3 (1.49-2.60) nmol/L TSH 3rd Generation (0.46-4.68) mIU/L Arterial Blood Potassium (3.6-5.2) mmol/L Urine Eosinophils Negative (NEGATIVE) Random Vancomycin ug/mL Hep Bs Antibody (NEGATIVE) Hepatitis C Antibody (NEGATIVE) HIV 1&2 Antibody Screen Negative (NEGATIVE) 07/08/18 07/08/18 07/08/18 Range/Units 19:17 19:17 06:21 WBC (4.8-10.8) K/uL RBC (3.80-5.20) Mil/uL Hgb (11.0-16.0) g/dL Hct (34.0-47.0) % MCV (81.0-99.0) fL MCH (27.0-31.0) pg MCHC (33.0-37.0) g/dL RDW (11.5-14.5) % Plt Count (130-400) K/uL MPV (7.2-11.7) fL Neut % (Auto) (50.0-75.0) % Lymph % (Auto) (20.0-40.0) % [place] % (Auto) (0.0-10.0) % Eos % (Auto) (0.0-4.0) % Baso % (Auto) (0.0-2.0) % Neut # (Auto) (1.8-7.0) K/uL Lymph # (Auto) (1.0-4.3) K/uL [place] # (Auto) (0.0-0.8) K/uL Eos # (Auto) (0.0-0.7) K/uL Baso # (Auto) (0.0-0.2) K/uL Puncture Site pCO2 (35-45) mm/Hg pO2 (80-100) mm/Hg HCO3 (21-28) mmol/L ABG pH (7.35-7.45) ABG Total CO2 (22-28) mmol/L ABG O2 Saturation (95-98) % ABG Base Excess (-2.0-3.0) mmol/L ABG Hemoglobin (11.7-17.4) g/dL ABG Carboxyhemoglobin (0.5-1.5) % POC ABG HHb (Measured) (0.0-5.0) % ABG Methemoglobin (0.0-3.0) % Kevon Test ABG Potassium (3.6-5.2) mmol/L A-a O2 Difference mm/Hg Respiratory Index Hgb O2 Saturation (95.0-98.0) % Sodium (132-148) mmol/l Chloride (98-107) mmol/L Glucose (65-105) mg/dl Lactate (0.7-2.1) mmol/L Vent Mode Mechanical Rate FiO2 % Tidal Volume PEEP Crit Value Called To Crit Value Called By Blood Gas Notified Time Potassium (3.6-5.2) mmol/L Carbon Dioxide (22-30) mmol/L Anion Gap (10-20) BUN (7-17) mg/dL Creatinine (0.7-1.2) mg/dL Est GFR ( Amer) Est GFR (Non-Af Amer) POC Glucose (mg/dL) (65-110) mg/dL Random Glucose (65-105) mg/dL Hemoglobin A1c 7.8 H (4.2-6.5) % Calcium (8.6-10.4) mg/dl Phosphorus (2.5-4.5) mg/dL Magnesium (1.6-2.3) mg/dL Iron (37-170) ug/dL TIBC (250-450) ug/dL % Saturation (20-55) Ferritin ng/mL Total Bilirubin (0.2-1.3) mg/dL AST (14-36) U/L ALT (9-52) U/L Alkaline Phosphatase (38-126) U/L Lactate Dehydrogenase (313-618) U/L Total Creatine Kinase (30-135) U/L CK-MB (Mass) (0.0-3.38) ng/mL Troponin I (0.00-0.120) ng/mL NT-Pro-B Natriuret Pep (0-900) pg/mL Total Protein (6.3-8.3) g/dL Albumin (3.5-5.0) g/dL Globulin (2.2-3.9) gm/dL Albumin/Globulin Ratio (1.0-2.1) Vitamin B12 (239-931) pg/mL 25-OH Vitamin D Total (30.0-100.0) NG/ML Folate ng/mL Free T4 (0.78-2.19) ng/dL Total T3 (1.49-2.60) nmol/L TSH 3rd Generation (0.46-4.68) mIU/L Arterial Blood Potassium (3.6-5.2) mmol/L Urine Eosinophils (NEGATIVE) Random Vancomycin ug/mL Hep Bs Antibody Negative (NEGATIVE) Hepatitis C Antibody Negative (NEGATIVE) HIV 1&2 Antibody Screen (NEGATIVE) Laboratory Results - last 24 hr 07/08/18 07/08/18 07/08/18 06:21 19:17 19:17 WBC RBC Hgb Hct MCV MCH MCHC RDW Plt Count MPV Neut % (Auto) Lymph % (Auto) [place] % (Auto) Eos % (Auto) Baso % (Auto) Neut # (Auto) Lymph # (Auto) [place] # (Auto) Eos # (Auto) Baso # (Auto) Puncture Site pCO2 pO2 HCO3 ABG pH ABG Total CO2 ABG O2 Saturation ABG Base Excess ABG Hemoglobin ABG Carboxyhemoglobin POC ABG HHb (Measured) ABG Methemoglobin Kevon Test ABG Potassium A-a O2 Difference Respiratory Index Hgb O2 Saturation Sodium Chloride Glucose Lactate Vent Mode Mechanical Rate FiO2 Tidal Volume PEEP Crit Value Called To Crit Value Called By Blood Gas Notified Time Potassium Carbon Dioxide Anion Gap BUN Creatinine Est GFR ( Amer) Est GFR (Non-Af Amer) POC Glucose (mg/dL) Random Glucose Hemoglobin A1c 7.8 H Calcium Phosphorus Magnesium Iron TIBC % Saturation Ferritin Total Bilirubin AST ALT Alkaline Phosphatase Lactate Dehydrogenase Total Creatine Kinase CK-MB (Mass) Troponin I NT-Pro-B Natriuret Pep Total Protein Albumin Globulin Albumin/Globulin Ratio Vitamin B12 25-OH Vitamin D Total Folate Free T4 Total T3 TSH 3rd Generation Arterial Blood Potassium Urine Eosinophils Random Vancomycin Hep Bs Antibody Negative Hepatitis C Antibody Negative HIV 1&2 Antibody Screen 07/09/18 07/09/18 07/10/18 20:26 20:35 11:12 WBC RBC Hgb Hct MCV MCH MCHC RDW Plt Count MPV Neut % (Auto) Lymph % (Auto) [place] % (Auto) Eos % (Auto) Baso % (Auto) Neut # (Auto) Lymph # (Auto) [place] # (Auto) Eos # (Auto) Baso # (Auto) Puncture Site pCO2 pO2 HCO3 ABG pH ABG Total CO2 ABG O2 Saturation ABG Base Excess ABG Hemoglobin ABG Carboxyhemoglobin POC ABG HHb (Measured) ABG Methemoglobin Kevon Test ABG Potassium A-a O2 Difference Respiratory Index Hgb O2 Saturation Sodium Chloride Glucose Lactate Vent Mode Mechanical Rate FiO2 Tidal Volume PEEP Crit Value Called To Crit Value Called By Blood Gas Notified Time Potassium Carbon Dioxide Anion Gap BUN Creatinine Est GFR ( Amer) Est GFR (Non-Af Amer) POC Glucose (mg/dL) Random Glucose Hemoglobin A1c Calcium Phosphorus Magnesium Iron 45 TIBC 202 L % Saturation 22 Ferritin Total Bilirubin AST ALT Alkaline Phosphatase Lactate Dehydrogenase Total Creatine Kinase CK-MB (Mass) Troponin I NT-Pro-B Natriuret Pep Total Protein Albumin Globulin Albumin/Globulin Ratio Vitamin B12 25-OH Vitamin D Total Folate Free T4 Total T3 TSH 3rd Generation Arterial Blood Potassium Urine Eosinophils Negative Random Vancomycin Hep Bs Antibody Hepatitis C Antibody HIV 1&2 Antibody Screen Negative 07/10/18 07/10/18 07/10/18 11:12 11:13 13:07 WBC RBC Hgb Hct MCV MCH MCHC RDW Plt Count MPV Neut % (Auto) Lymph % (Auto) [place] % (Auto) Eos % (Auto) Baso % (Auto) Neut # (Auto) Lymph # (Auto) [place] # (Auto) Eos # (Auto) Baso # (Auto) Puncture Site pCO2 pO2 HCO3 ABG pH ABG Total CO2 ABG O2 Saturation ABG Base Excess ABG Hemoglobin ABG Carboxyhemoglobin POC ABG HHb (Measured) ABG Methemoglobin Kevon Test ABG Potassium A-a O2 Difference Respiratory Index Hgb O2 Saturation Sodium Chloride Glucose Lactate Vent Mode Mechanical Rate FiO2 Tidal Volume PEEP Crit Value Called To Crit Value Called By Blood Gas Notified Time Potassium Carbon Dioxide Anion Gap BUN Creatinine Est GFR ( Amer) Est GFR (Non-Af Amer) POC Glucose (mg/dL) 246 H Random Glucose Hemoglobin A1c Calcium Phosphorus Magnesium Iron TIBC % Saturation Ferritin 416.0 Total Bilirubin AST ALT Alkaline Phosphatase Lactate Dehydrogenase 2209 H Total Creatine Kinase 286 H CK-MB (Mass) Troponin I NT-Pro-B Natriuret Pep Total Protein Albumin Globulin Albumin/Globulin Ratio Vitamin B12 469 25-OH Vitamin D Total Folate 10.9 Free T4 4.18 H Total T3 TSH 3rd Generation Arterial Blood Potassium Urine Eosinophils Random Vancomycin Hep Bs Antibody Hepatitis C Antibody HIV 1&2 Antibody Screen 07/10/18 07/10/18 07/10/18 13:07 14:07 14:30 WBC RBC Hgb Hct MCV MCH MCHC RDW Plt Count MPV Neut % (Auto) Lymph % (Auto) [place] % (Auto) Eos % (Auto) Baso % (Auto) Neut # (Auto) Lymph # (Auto) [place] # (Auto) Eos # (Auto) Baso # (Auto) Puncture Site Rt femoral pCO2 26 L pO2 244 H HCO3 23.0 ABG pH 7.48 H ABG Total CO2 20.2 L ABG O2 Saturation 99.7 H ABG Base Excess -2.6 L ABG Hemoglobin ABG Carboxyhemoglobin POC ABG HHb (Measured) ABG Methemoglobin Kevon Test Na ABG Potassium 3.7 A-a O2 Difference 437.0 Respiratory Index 1.8 Hgb O2 Saturation Sodium 142.0 142 Chloride 107.0 101 Glucose 296 H Lactate 6.1 H* Vent Mode Mechanical Rate FiO2 100 Tidal Volume PEEP Crit Value Called To Car Rental Agent Crit Value Called By Richard boone Blood Gas Notified Time 1413 Potassium 3.6 Carbon Dioxide 23 Anion Gap 22 H BUN 36 H Creatinine 2.2 H Est GFR ( Amer) 28 Est GFR (Non-Af Amer) 23 POC Glucose (mg/dL) Random Glucose 231 H Hemoglobin A1c Calcium 6.2 L Phosphorus 3.1 Magnesium 2.6 H Iron TIBC % Saturation Ferritin Total Bilirubin 0.7 AST 247 H ALT 205 H Alkaline Phosphatase 73 Lactate Dehydrogenase Total Creatine Kinase 284 H CK-MB (Mass) 4.05 H Troponin I 10.4000 H* NT-Pro-B Natriuret Pep 14783 H Total Protein 4.2 L Albumin 2.0 L Globulin 2.1 L Albumin/Globulin Ratio 0.9 L Vitamin B12 25-OH Vitamin D Total Folate 10.8 Free T4 Total T3 0.826 L TSH 3rd Generation < 0.02 L Arterial Blood Potassium 3.7 Urine Eosinophils Random Vancomycin Hep Bs Antibody Hepatitis C Antibody HIV 1&2 Antibody Screen 07/10/18 07/10/18 07/10/18 14:30 17:45 20:53 WBC 5.5 12.4 H D RBC 2.63 L 2.92 L Hgb 7.9 L 8.7 L Hct 23.3 L 25.7 L MCV 88.5 87.8 MCH 30.2 29.6 MCHC 34.1 33.8 RDW 15.9 H 15.6 H Plt Count 145 222 MPV 8.1 8.2 Neut % (Auto) 69.6 84.2 H Lymph % (Auto) 24.1 10.8 L [place] % (Auto) 5.3 4.5 Eos % (Auto) 0.1 0.1 Baso % (Auto) 0.9 0.4 Neut # (Auto) 3.9 10.4 H Lymph # (Auto) 1.3 1.3 [place] # (Auto) 0.3 0.6 Eos # (Auto) 0.0 0.0 Baso # (Auto) 0.0 0.0 Puncture Site pCO2 pO2 HCO3 ABG pH ABG Total CO2 ABG O2 Saturation ABG Base Excess ABG Hemoglobin ABG Carboxyhemoglobin POC ABG HHb (Measured) ABG Methemoglobin Kevon Test ABG Potassium A-a O2 Difference Respiratory Index Hgb O2 Saturation Sodium Chloride Glucose Lactate Vent Mode Mechanical Rate FiO2 Tidal Volume PEEP Crit Value Called To Crit Value Called By Blood Gas Notified Time Potassium Carbon Dioxide Anion Gap BUN Creatinine Est GFR ( Amer) Est GFR (Non-Af Amer) POC Glucose (mg/dL) 290 H Random Glucose Hemoglobin A1c Calcium Phosphorus Magnesium Iron TIBC % Saturation Ferritin Total Bilirubin AST ALT Alkaline Phosphatase Lactate Dehydrogenase Total Creatine Kinase CK-MB (Mass) Troponin I NT-Pro-B Natriuret Pep Total Protein Albumin Globulin Albumin/Globulin Ratio Vitamin B12 25-OH Vitamin D Total Folate Free T4 Total T3 TSH 3rd Generation Arterial Blood Potassium Urine Eosinophils Random Vancomycin Hep Bs Antibody Hepatitis C Antibody HIV 1&2 Antibody Screen 07/10/18 07/10/18 07/11/18 20:53 23:43 05:20 WBC RBC Hgb Hct MCV MCH MCHC RDW Plt Count MPV Neut % (Auto) Lymph % (Auto) [place] % (Auto) Eos % (Auto) Baso % (Auto) Neut # (Auto) Lymph # (Auto) [place] # (Auto) Eos # (Auto) Baso # (Auto) Puncture Site Rr pCO2 22 L pO2 137 H HCO3 23.7 ABG pH 7.56 H ABG Total CO2 20.4 L ABG O2 Saturation 99.2 H ABG Base Excess -1.6 ABG Hemoglobin 9.0 L ABG Carboxyhemoglobin 1.2 POC ABG HHb (Measured) 0.8 ABG Methemoglobin 0.8 Kevon Test Na ABG Potassium A-a O2 Difference 335.0 Respiratory Index 2.4 Hgb O2 Saturation 97.2 Sodium 141 Chloride 101 Glucose Lactate Vent Mode Prvc Mechanical Rate 20 FiO2 70.0 Tidal Volume 450 PEEP 5 Crit Value Called To Crit Value Called By Blood Gas Notified Time Potassium 3.5 L Carbon Dioxide 20 L Anion Gap 24 H BUN 42 H Creatinine 2.2 H Est GFR ( Amer) 28 Est GFR (Non-Af Amer) 23 POC Glucose (mg/dL) 307 H Random Glucose 302 H Hemoglobin A1c Calcium 6.3 L Phosphorus 3.4 Magnesium 2.4 H Iron TIBC % Saturation Ferritin Total Bilirubin 0.8 AST 536 H D ALT 366 H D Alkaline Phosphatase 82 Lactate Dehydrogenase Total Creatine Kinase 314 H CK-MB (Mass) 2.98 Troponin I 10.4000 H* NT-Pro-B Natriuret Pep Total Protein 4.4 L Albumin 2.1 L Globulin 2.3 Albumin/Globulin Ratio 0.9 L Vitamin B12 25-OH Vitamin D Total Folate Free T4 Total T3 TSH 3rd Generation Arterial Blood Potassium Urine Eosinophils Random Vancomycin Hep Bs Antibody Hepatitis C Antibody HIV 1&2 Antibody Screen 07/11/18 07/11/18 07/11/18 05:48 05:49 05:49 WBC 11.1 H RBC 2.92 L Hgb 8.8 L Hct 25.6 L MCV 87.8 MCH 30.3 MCHC 34.5 RDW 15.9 H Plt Count 217 MPV 8.7 Neut % (Auto) 78.8 H Lymph % (Auto) 14.5 L [place] % (Auto) 6.3 Eos % (Auto) 0.1 Baso % (Auto) 0.3 Neut # (Auto) 8.7 H Lymph # (Auto) 1.6 [place] # (Auto) 0.7 Eos # (Auto) 0.0 Baso # (Auto) 0.0 Puncture Site pCO2 pO2 HCO3 ABG pH ABG Total CO2 ABG O2 Saturation ABG Base Excess ABG Hemoglobin ABG Carboxyhemoglobin POC ABG HHb (Measured) ABG Methemoglobin Kevon Test ABG Potassium A-a O2 Difference Respiratory Index Hgb O2 Saturation Sodium Chloride Glucose Lactate Vent Mode Mechanical Rate FiO2 Tidal Volume PEEP Crit Value Called To Crit Value Called By Blood Gas Notified Time Potassium Carbon Dioxide Anion Gap BUN Creatinine Est GFR ( Amer) Est GFR (Non-Af Amer) POC Glucose (mg/dL) Random Glucose Hemoglobin A1c Calcium Phosphorus Magnesium Iron TIBC % Saturation Ferritin Total Bilirubin AST ALT Alkaline Phosphatase Lactate Dehydrogenase Total Creatine Kinase CK-MB (Mass) Troponin I NT-Pro-B Natriuret Pep Total Protein Albumin Globulin Albumin/Globulin Ratio Vitamin B12 25-OH Vitamin D Total < 12.8 L Folate Free T4 Total T3 TSH 3rd Generation Arterial Blood Potassium Urine Eosinophils Random Vancomycin < 5.0 Hep Bs Antibody Hepatitis C Antibody HIV 1&2 Antibody Screen 07/11/18 07/11/18 07/11/18 05:49 05:49 06:01 WBC RBC Hgb Hct MCV MCH MCHC RDW Plt Count MPV Neut % (Auto) Lymph % (Auto) [place] % (Auto) Eos % (Auto) Baso % (Auto) Neut # (Auto) Lymph # (Auto) [place] # (Auto) Eos # (Auto) Baso # (Auto) Puncture Site pCO2 pO2 HCO3 ABG pH ABG Total CO2 ABG O2 Saturation ABG Base Excess ABG Hemoglobin ABG Carboxyhemoglobin POC ABG HHb (Measured) ABG Methemoglobin [place] Test ABG Potassium A-a O2 Difference Respiratory Index Hgb O2 Saturation Sodium 141 Chloride 104 Glucose Lactate Vent Mode Mechanical Rate FiO2 Tidal Volume PEEP Crit Value Called To Crit Value Called By Blood Gas Notified Time Potassium 3.0 L Carbon Dioxide 22 Anion Gap 18 BUN 43 H Creatinine 2.3 H Est GFR ( Amer) 27 Est GFR (Non-Af Amer) 22 POC Glucose (mg/dL) 412 H* Random Glucose 364 H Hemoglobin A1c Calcium 6.4 L Phosphorus 2.7 Magnesium 2.2 Iron TIBC % Saturation Ferritin Total Bilirubin 0.6 AST 548 H ALT 427 H Alkaline Phosphatase 96 Lactate Dehydrogenase Total Creatine Kinase CK-MB (Mass) Troponin I NT-Pro-B Natriuret Pep Total Protein 4.5 L Albumin 2.2 L Globulin 2.3 Albumin/Globulin Ratio 0.9 L Vitamin B12 25-OH Vitamin D Total Folate Free T4 3.56 H Total T3 TSH 3rd Generation < 0.02 L Arterial Blood Potassium Urine Eosinophils Random Vancomycin Hep Bs Antibody Hepatitis C Antibody HIV 1&2 Antibody Screen EKG/Cardiology Studies: Cardiology / EKG Studies 07/10/18 14:13 EKG [ELECTROCARDIOGRAM] Stat Comment: Mode Of Transportation: Reason For Exam: [email or web address] Attending/Attestation - Attestation I have personally seen and examined this patient.: Yes I have fully participated in the care of the patient.: Yes I have reviewed all pertinent clinical information: Yes Notes (Text): 07/11/18 08:29 Patient sustained a cardiac arrest. V. tach defibrillation. Status post defibrillation. Converted to sinus rhythm. Magnesium supplemented. Amiodarone IV. Cardiology evaluation. Discussed with the patient's
[2018-07-10] MEDS: Phenylephrine 30 MG in Sodium Chloride 0.9% 250 ML IV PRN (18:16)
[2018-07-10] MEDS ORDERED: AMIODARONE IV ONE ×2 (20:00)
[2018-07-10] MEDS ORDERED: WATER IV ONE ×2 (20:00)
[2018-07-10] MEDS ORDERED: Amiodarone 540 MG in Dextrose 5% In Water 289.2 ML IV ONE (20:00)
[2018-07-10] MEDS ORDERED: DEXTROSE 5% IV ONE ×2 (20:00)
[2018-07-10 21:00] LABS: BASO % 0.4 % (0.0-2.0); EOS % 0.1 % (0.0-4.0); HEMOGLOBIN 8.7 g/dL (11.0-16.0); LYMPH # 1.3 K/uL (1.0-4.3); LYMPH % 10.8 % (20.0-40.0); MEAN CELL VOLUME 87.8 fL (81.0-99.0); MEAN CORPUSCULAR HEMOGLOBIN 29.6 pg (27.0-31.0); MEAN CORPUSCULAR HGB CONC 33.8 g/dL (33.0-37.0); MEAN PLATELET VOLUME 8.2 fL (7.2-11.7); MONO # 0.6 K/uL (0.0-0.8); MONO % 4.5 % (0.0-10.0); NEUT # 10.4 K/uL (1.8-7.0); NEUT % 84.2 % (50.0-75.0); NRBC % 0.2 % (0.0-2.0); RBC 2.92 Mil/uL (3.80-5.20); RED CELL DISTRIBUTION WIDTH 15.6 % (11.5-14.5)
[2018-07-10 21:03] LABS: WHITE BLOOD COUNT 12.4 K/uL (4.8-10.8)
[2018-07-10 22:28] LABS: ALB/GLOB RATIO 0.9 (1.0-2.1); ALBUMIN 2.1 g/dL (3.5-5.0); CALCIUM 6.3 mg/dl (8.6-10.4)
[2018-07-10 22:58] LABS: TROPONIN I 10.4 ng/mL (0.00-0.120)
[2018-07-10 23:01] LABS: CK-MB 2.98 ng/mL (0.0-3.38)
[2018-07-11] MEDS: Albuterol-Ipratrop 3 mg / 0.5 (3 ml) UD INH SCH ×6 (00:35→23:42)
[2018-07-11] MEDS: Phenylephrine 30 MG in Sodium Chloride 0.9% 250 ML IV PRN (00:57)
[2018-07-11] MEDS: Vasopressin 40 UNITS in Dextrose 5% In Water 38 ML IV SCH ×3 (02:10→19:05)
[2018-07-11 05:58] LABS: BASO % 0.3 % (0.0-2.0); EOS % 0.1 % (0.0-4.0); HEMOGLOBIN 8.8 g/dL (11.0-16.0); LYMPH # 1.6 K/uL (1.0-4.3); LYMPH % 14.5 % (20.0-40.0); MEAN CELL VOLUME 87.8 fL (81.0-99.0); MEAN CORPUSCULAR HEMOGLOBIN 30.3 pg (27.0-31.0); MEAN CORPUSCULAR HGB CONC 34.5 g/dL (33.0-37.0); MEAN PLATELET VOLUME 8.7 fL (7.2-11.7); MONO # 0.7 K/uL (0.0-0.8); MONO % 6.3 % (0.0-10.0); NEUT # 8.7 K/uL (1.8-7.0); NEUT % 78.8 % (50.0-75.0); NRBC % 0.5 % (0.0-2.0); RBC 2.92 Mil/uL (3.80-5.20); RED CELL DISTRIBUTION WIDTH 15.9 % (11.5-14.5); WHITE BLOOD COUNT 11.1 K/uL (4.8-10.8)
[2018-07-11 06:02] LABS: ARTERIAL BLOOD GAS HCO3 23.7 mmol/L (21-28); ARTERIAL BLOOD GAS O2 SAT 99.2 % (95-98); ARTERIAL BLOOD GAS PCO2 22 mm/Hg (35-45); ARTERIAL BLOOD GAS PH 7.56 (7.35-7.45); ARTERIAL BLOOD GAS PO2 137 mm/Hg (80-100); ARTERIAL BLOOD GAS TCO2 20.4 mmol/L (22-28)
[2018-07-11 06:22] LABS: ALB/GLOB RATIO 0.9 (1.0-2.1); ALBUMIN 2.2 g/dL (3.5-5.0); ALT/SGPT 427 U/L (9-52); AST/SGOT 548 U/L (14-36); BLOOD UREA NITROGEN 43 mg/dL (7-17); CALCIUM 6.4 mg/dl (8.6-10.4); GFR NON-AFRICAN AMERICAN 22
[2018-07-11] MEDS: (Novolog) Insulin Aspart, Recombinant 100 u/ml 10 ml vial SC SCH ×4 (06:23→18:00)
--- NOTE | 2018-07-11 06:39 | CON ---
DATE: 07/11/2018 LOCATION: ICU, Room 9. HISTORY OF PRESENT ILLNESS: This is a 52-year-old female, presenting here with an acute bronchitis with concomitant urinary tract infection, and is now being referred for endocrine evaluation because of abnormal thyroid function studies. She apparently went into sudden respiratory distress requiring intubation and currently also sedated with ongoing pressors being given at this time. The history was obtained from the chart and the review of the consultants note and management. PAST MEDICAL HISTORY: History of hypertension, previously on medications in the past. FAMILY HISTORY: Positive for hypertension and heart disease. SOCIAL HISTORY: The patient has supportive family. No known substance use. REVIEW OF SYSTEMS: Not possible at this time. PHYSICAL EXAMINATION: GENERAL: This is an average built female, currently endotracheally intubated and sedated. VITAL SIGNS: Blood pressure of 100/60, pulse of 100 beats per minute and regular, temperature 98. Respirations as per ventilator parameters. HEENT: Head is normocephalic. Eyes anicteric with pink conjunctivae. Funduscopy not possible at this time. Ears, nose, and throat, otherwise, normal. NECK: Supple. Thyroid gland is firm and nontender with no overt audible nodules. HEART: Hyperdynamic precordium. S1, S2 rapid and regular. LUNGS: Showed scattered rhonchi. ABDOMEN: Flat and soft with positive bowel sounds. EXTREMITIES: No peripheral edema. Pulses are +2 bilaterally. LABORATORY DATA: The free T4 is 4.18 with a TSH of less than 0.02. The troponin is 10.40 with a pro-BNP of 18,200. Glucose levels have ranged from 246 to 290. Chemistries showed a BUN of 36. Sodium 142, potassium 3.6, chloride 101, CO2 of 22, glucose 231, and creatinine 2.2. The patient is also on IV steroid therapy as given and noted. 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 She also has overt hyperthyroidism, most likely related to underlying autoimmune thyroiditis as noted. PLAN OF MANAGEMENT: We will start her with Tapazole 10 mg every 8 hours as given, start today. We will obtain comprehensive thyroid hormonal profile to include the total T4 and TSH with a TSH receptor antibody and a thyroid peroxidase antibody which will confirm and/or indicate the presence of thyroid autoimmunity. A hemoglobin A1c has been done, and we will obtain serial chemistries and supplement accordingly as needed. We will follow. Sheyla Gayle MD
[2018-07-11] MEDS ORDERED: (Novolog) Insulin Aspart, Recombinant 100 u/ml 10 ml vial SC STA (06:45)
[2018-07-11] MEDS ORDERED: Perflutren Lipid Microsphere 1.5 ML SUS IV ONE (08:47)
--- NOTE | 2018-07-11 09:35 | CP.PCM.PN ---
Subjective - Date & Time of Evaluation Date of Evaluation: 07/11/18 Time of Evaluation: 09:30 - Subjective Subjective: Medical Attending Note: Patient seen at bedside. Family not present at bedside. Patient is off pressor. Is tachycardic, and blood pressure has improved. Patient is on fentanyl. Patient had repeat echo completed this morning; noted for apical thrombus at bedside. Pending ekg this morning given tachycardia if AF or not. Patient also noted for hyperthyroidism; was started by endocrinology on [place]. Unable to ROS secondary to clinical condition. Objective - Vital Signs/Intake and Output Vital Signs (last 24 hours): Temp Pulse Resp BP Pulse Ox 97.7 F 87 13 148/87 100 07/11/18 08:00 07/11/18 08:42 07/11/18 08:42 07/11/18 08:42 07/11/18 08:42 Intake and Output: 07/11/18 07/11/18 06:59 18:59 Intake Total 1893.2 263.0 Output Total 320 70 Balance 1573.2 193.0 - Medications Medications: Current Medications Acetaminophen (Tylenol 325mg Tab) 650 mg PO Q6H PRN PRN Reason: Pain, moderate (4-7) Last Admin: 07/10/18 00:00 Dose: 650 mg Albuterol/Ipratropium (Duoneb 3 Mg/0.5 Mg (3 Ml) Ud) 3 ml INH RQ4 [facility] Last Admin: 07/11/18 07:56 Dose: 3 ml Heparin Sodium (Porcine) (Heparin) 5,000 units SC Q8 [facility] Last Admin: 07/11/18 06:16 Dose: 5,000 units Hydrocortisone Sodium Succinate (Solu-Cortef) 50 mg IV Q12 [facility] Last Admin: 07/10/18 22:00 Dose: 50 mg Phenylephrine HCl 30 mg/ (Sodium Chloride) 253 mls @ 10.12 mls/hr IV .Q24H PRN; Protocol PRN Reason: TITRATE PER MD ORDER Last Admin: 07/11/18 00:57 Dose: 80 mcg/min, 40.48 mls/hr Norepinephrine Bitartrate 8 mg (/ Dextrose) 258 mls @ 7.74 mls/hr IV .Q24H PRN; Protocol PRN Reason: TITRATE PER MD ORDER Last Titration: 07/10/18 06:00 Dose: 0 mcg/min, 0 mls/hr Meropenem 500 mg/ Sodium (Chloride) 100 mls @ 100 mls/hr IVPB Q12H [facility]; Protocol Last Admin: 07/10/18 23:36 Dose: 100 mls/hr Vasopressin 40 units/ Dextrose 40 mls @ 2.4 mls/hr IV .[id number] [facility]; Protocol Last Admin: 07/11/18 06:00 Dose: 0.04 units/min, 2.4 mls/hr Sodium Chloride (Sodium Chloride 0.9%) 1,000 mls @ 40 mls/hr IV .Q24H [facility] Last Admin: 07/10/18 19:54 Dose: 40 mls/hr Fentanyl Citrate 2,500 mcg/ (Sodium Chloride) 250 mls @ 11.2 mls/hr IV .[id number] [facility]; Protocol Last Admin: 07/10/18 20:08 Dose: 2 mcg/kg/hr, 11.2 mls/hr Amiodarone HCl 540 mg/ (Dextrose) 300 mls @ 16.6 mls/hr IV Q18H [facility] Stop: 07/11/18 14:04 Last Admin: 07/10/18 20:08 Dose: 16.6 mls/hr Potassium Chloride (Potassium Chloride 20 Meq/100 Ml) 20 meq in 100 mls @ 50 mls/hr IVPB Q2H [facility] Stop: 07/11/18 14:29 Last Admin: 07/11/18 08:44 Dose: 50 mls/hr Heparin Sodium/Sodium Chloride (Heparin 99163 Units/250ml 1/2 Normal Saline) 25,000 units in 250 mls @ 10.207 mls/hr IV .Q24H PRN; Protocol PRN Reason: PROTOCOL Insulin Aspart (Novolog) 0 unit SC Q6 [facility]; Protocol Lactobacillus Acidophilus (Bacid Acidophilus) 1 cap PO Q12H [facility] Last Admin: 07/10/18 20:14 Dose: 1 cap Methimazole (Tapazole) 10 mg PO TID [facility] Ondansetron HCl (Zofran Inj) 4 mg IVP Q6H PRN PRN Reason: Nausea/Vomiting Last Admin: 07/08/18 13:06 Dose: 4 mg Pantoprazole Sodium (Protonix Susp) 40 mg PO BID [facility] - Labs Labs: 07/11/18 05:48 07/11/18 05:49 - Constitutional Appears: Chronically Ill - Head Exam Head Exam: NORMAL INSPECTION - Eye Exam Eye Exam: EOMI - Respiratory Exam Respiratory Exam: Rales, Rhonchi Additional comments: intubated on vent - Cardiovascular Exam Cardiovascular Exam: Tachycardia, +S1, +S2 - GI/Abdominal Exam GI & Abdominal Exam: Distended, Soft, Normal Bowel Sounds. absent: Guarding, Rigid, Tenderness, Hernia, Organomegaly - Extremities Exam Extremities Exam: absent: Pedal Edema, Tenderness - Neurological Exam Neurological Exam: Alert, Awake - Psychiatric Exam Psychiatric exam: Agitated - Skin Skin Exam: Dry, Intact, Normal Color, Warm Assessment and Plan (1) Septic shock Status: Acute (2) Acute respiratory failure Status: Acute (3) Urinary tract infection Status: Acute (4) Acute renal failure Status: Acute (5) Aspiration pneumonia Status: Acute (6) Diabetes mellitus Status: Chronic (7) Ventricular arrhythmia Status: Acute (8) Hyperthyroidism Status: Acute (9) Anemia Status: Acute (10) Left ventricular apical thrombus following NM Status: Acute (11) Prophylactic measure Status: Acute Attending/Attestation - Attestation I have personally seen and examined this patient.: Yes I have fully participated in the care of the patient.: Yes I have reviewed all pertinent clinical information, including history, physical exam and plan: Yes Notes (Text): 1) Septic Shock Assessment/Plan * Infectious Disease (Dr. Brock) on case-->help appreciated * Criteria: leukocytosis, tachycardia * Source: aspiration pneumonia and urinary tract infection * 07/07/18: Urine: E. Coli * 07/09/18: Urine: No growth * 07/07/18: blood culture: no growth after 3 days X2 * 07/09/18 Blood culture: no growth after 24 hours X2 * MRSA not detected * Meropenem 500mg IV Q12 (active since 05/20) * Off pressors, On fentanyl 2) Acute Respiratory Failure Pulmonary Edema Assessment/Plan * Chest xray (07/10/18): little interval change in presumable pulmonary edema and layering pleural effusions, worse on the right. stable position of support tubes * Pending chest xray * Intubated * Solcortef 50mg OV Q12H * Duonebs RQ6H PRN wheezing * Duonebs RQ6H * Sputum culture pending * MRSA screen pending 3) Ventricular Tachycardia Nonstemi Apical Thrombus Assessment/Plan * Code Blue 07/10: SVT==>VT required amiodarone, magnesium, one shock delivered, ordered for ekg, lizette, echo, and cardiology evaluation * Cardiology Dr Francisco will come to evaluate * Echocardiogram (07/07/18): left ventricle systolic function is borderline, ejection fraction is 45-50%, no aortic regurgitation is present, mitral regurgitation is mild. Mild tricuspid regurgitation. mild pulmonary hypertension, mild pulmonic valvular regurgitation * Repeat Echo pending official report-->apical thrombus noted at bedside * patient is on amiodarone drip * Monitor electrolytes * Patient to start heparin drip in light of apical thrombus 4) Urinary Tract Infection Assessment/Plan * 07/07/18: Urine: E. Coli * 07/09/18: Urine: No growth * Meropenem 500mg IV Q12 (active since 07/10/18) 4) Aspiration Pneumonia Assessment/Plan * Off Azithromycin 5) Diabetes Assessment/Plan * a1c: 7.8 * hypoglycemic protocol * novolog unit subq 6) Acute on Chronic Renal Failure Assessment/Plan * Nephrology (Dr. Hyde) on board--> help appreciated * Second dialysis cancelled secondary to code blue earlier yesterday 7) Hyperthyroidism? Low TSH, and Free T4 Assessment/Plan * Note Thyroid studies taken before amiodarone was given * Patient does not have prior thyroid history * Endocrinology (Dr. Gayle) on board help appreciated * Start Tapazole 10mg PO TID 8) Anemia Assessment/Plan * iron normal, TIBC low, iron sat normal, ferritin normal * pending stool occult blood and reticulocte count * B12 normal * Folate Normal 9) Transminitis * related to sepsis and also patient is on amiodarone 10) Prophylactic measure * Protonix 40mg IV Q12H * Heparin drip * off pressors * on Fentanyl drip
[2018-07-11] MEDS: Heparin25000 units/250ml 1/2NS 25,000 UNITS/250 ML BAG IV PRN (09:52)
[2018-07-11 09:53] LABS: PROTHROMBIN TIME 36.4 SECONDS (9.7-12.2)
[2018-07-11 10:04] LABS: INR 3.3
[2018-07-11] MEDS: Lactobacillus Acidophilus 500 MU Cap PO SCH ×2 (10:33→20:30)
[2018-07-11] MEDS: Pantoprazole 40 mg Susp UD PO SCH ×2 (10:34→17:13)
--- NOTE | 2018-07-11 10:58 | CP.PCM.PN ---
Subjective - Date & Time of Evaluation Date of Evaluation: 07/11/18 Time of Evaluation: 07:00 - Subjective Subjective: events noted tachycardic afeb sedated + hyperthyroid , apical thrombus Objective - Vital Signs/Intake and Output Vital Signs (last 24 hours): Temp Pulse Resp BP Pulse Ox 97.7 F 87 13 148/87 100 07/11/18 08:00 07/11/18 08:42 07/11/18 08:42 07/11/18 08:42 07/11/18 08:42 Intake and Output: 07/11/18 07/11/18 06:59 18:59 Intake Total 1893.2 318.0 Output Total 320 70 Balance 1573.2 248.0 - Medications Medications: Current Medications Acetaminophen (Tylenol 325mg Tab) 650 mg PO Q6H PRN PRN Reason: Pain, moderate (4-7) Last Admin: 07/10/18 00:00 Dose: 650 mg Albuterol/Ipratropium (Duoneb 3 Mg/0.5 Mg (3 Ml) Ud) 3 ml INH RQ4 [facility] Last Admin: 07/11/18 07:56 Dose: 3 ml Heparin Sodium (Porcine) (Heparin) 5,000 units SC Q8 [facility] Last Admin: 07/11/18 06:16 Dose: 5,000 units Hydrocortisone Sodium Succinate (Solu-Cortef) 50 mg IV Q12 [facility] Last Admin: 07/11/18 10:35 Dose: 50 mg Phenylephrine HCl 30 mg/ (Sodium Chloride) 253 mls @ 10.12 mls/hr IV .Q24H PRN; Protocol PRN Reason: TITRATE PER MD ORDER Last Admin: 07/11/18 00:57 Dose: 80 mcg/min, 40.48 mls/hr Norepinephrine Bitartrate 8 mg (/ Dextrose) 258 mls @ 7.74 mls/hr IV .Q24H PRN; Protocol PRN Reason: TITRATE PER MD ORDER Last Titration: 07/10/18 06:00 Dose: 0 mcg/min, 0 mls/hr Meropenem 500 mg/ Sodium (Chloride) 100 mls @ 100 mls/hr IVPB Q12H [facility]; Protocol Last Admin: 07/10/18 23:36 Dose: 100 mls/hr Vasopressin 40 units/ Dextrose 40 mls @ 2.4 mls/hr IV .[id number] [facility]; Protocol Last Admin: 07/11/18 06:00 Dose: 0.04 units/min, 2.4 mls/hr Sodium Chloride (Sodium Chloride 0.9%) 1,000 mls @ 40 mls/hr IV .Q24H [facility] Last Admin: 07/10/18 19:54 Dose: 40 mls/hr Fentanyl Citrate 2,500 mcg/ (Sodium Chloride) 250 mls @ 11.2 mls/hr IV .[id number] [facility]; Protocol Last Titration: 07/11/18 07:30 Dose: 0 mcg/kg/hr, 0 mls/hr Amiodarone HCl 540 mg/ (Dextrose) 300 mls @ 16.6 mls/hr IV Q18H [facility] Stop: 07/11/18 14:04 Last Admin: 07/10/18 20:08 Dose: 16.6 mls/hr Potassium Chloride (Potassium Chloride 20 Meq/100 Ml) 20 meq in 100 mls @ 50 mls/hr IVPB Q2H [facility] Stop: 07/11/18 14:29 Last Admin: 07/11/18 10:34 Dose: 50 mls/hr Heparin Sodium/Sodium Chloride (Heparin 60137 Units/250ml 1/2 Normal Saline) 25,000 units in 250 mls @ 10.207 mls/hr IV .Q24H PRN; Protocol PRN Reason: PROTOCOL Last Admin: 07/11/18 09:52 Dose: 18 units/kg/hr, 10.207 mls/hr Insulin Aspart (Novolog) 0 unit SC Q6 [facility]; Protocol Lactobacillus Acidophilus (Bacid Acidophilus) 1 cap PO Q12H [facility] Last Admin: 07/11/18 10:33 Dose: 1 cap Methimazole (Tapazole) 10 mg PO TID [facility] Last Admin: 07/11/18 10:48 Dose: 10 mg Ondansetron HCl (Zofran Inj) 4 mg IVP Q6H PRN PRN Reason: Nausea/Vomiting Last Admin: 07/08/18 13:06 Dose: 4 mg Pantoprazole Sodium (Protonix Susp) 40 mg PO BID [facility] Last Admin: 07/11/18 10:34 Dose: 40 mg - Labs Labs: 07/11/18 05:48 07/11/18 05:49 PT 36.4 SECONDS (9.7-12.2) H 07/11/18 09:40 INR 3.3 07/11/18 09:40 APTT 34 SECONDS (21-34) 07/11/18 09:40 - Constitutional Appears: Confused - Head Exam Head Exam: NORMOCEPHALIC - Eye Exam Eye Exam: PERRL - ENT Exam ENT Exam: Mucous Membranes Dry - Neck Exam Neck Exam: absent: Lymphadenopathy - Respiratory Exam Respiratory Exam: Decreased Breath Sounds - Cardiovascular Exam Cardiovascular Exam: REGULAR RHYTHM - GI/Abdominal Exam GI & Abdominal Exam: Distended Assessment and Plan (1) NEHA (acute kidney injury) Status: Acute (2) Acute renal failure Status: Acute (3) Acute respiratory failure Status: Acute (4) Aspiration pneumonia Status: Acute (5) Septic shock Status: Acute (6) Urinary tract infection Status: Acute (7) Diabetes mellitus Status: Chronic - Assessment and Plan (Free Text) Assessment: cont iv rx supportive care
[2018-07-11] MEDS: Meropenem 500 MG in Sodium Chloride 0.9% 100 ML IVPB SCH (12:48)
[2018-07-11] MEDS ORDERED: (Novolog) Insulin Aspart, Recombinant 100 u/ml 10 ml vial SC ONE (13:00)
[2018-07-11] MEDS ORDERED: Phenylephrine 30 MG in Sodium Chloride 0.9% 250 ML IV PRN (13:07)
--- NOTE | 2018-07-11 13:38 | RAD ---
Date of service: 07/11/2018 HISTORY: s/p intubation COMPARISON: 07/10/2018 FINDINGS: LUNGS: Persistent opacity at right base. Suspicious for pneumonia. Also abnormal opacity right upper lobe. Left basilar opacity has resolved. PLEURA: No significant pleural effusion identified, no pneumothorax apparent. Left pleural effusion resolved from prior. CARDIOVASCULAR: Normal heart size. ET tube, NG tube unchanged. There is mild congestive change noted. This is slightly decreased in extent from prior examination. OSSEOUS STRUCTURES: No significant abnormalities. VISUALIZED UPPER ABDOMEN: Normal. OTHER FINDINGS: None. IMPRESSION: Congestive change. Persistent opacities right upper lobe and right base. Left basilar opacity has resolved. Resolved left pleural effusion. ET tube and NG tube unchanged.
[2018-07-11] MEDS: Ergocalciferol 50,000 Intl Units Cap PO SCH (14:50)
[2018-07-11] MEDS: Sodium Chloride 0.9% 1,000 ML IV SCH (14:52)
--- NOTE | 2018-07-11 16:00 | CP.PCM.PN ---
Subjective - Date & Time of Evaluation Date of Evaluation: 07/11/18 Time of Evaluation: 15:58 - Subjective Subjective: Nephrology Consultation Note Assessment: critical Acute Kidney Injury (N17.9) likely due to ATN, r/o GN septic shock, acute respi ailure, UTI/aspiration pneumonitis and pulm edemaf Diabetic chronic Kidney Disease (E11.22) Hypertensive Chronic Kidney Disease (I12.9) Chronic Kidney Disease (N18.3) Stage 3 with 740 mg proteinuria (R80.9) likely due to DM/HTN, baseline cr 1.2 Anemia (D64.9), Hyperphosphatemia (E83.39), Hypocalcemia ? hyperthyroidism. V tach and cardiac arrest Plan plan for trial of diuretics lasix, if not adequate diuresis with it then will plan for ultrafiltration Maintain hemodynamics stable. Avoid hypotension. Patient not on ACEI/ARB due to recent NEHA Monitor Input/Output, daily weights and renal function with basic metabolic panel dose of calcium gluconate 2 gram IVPB today started weekly Vit D supplement lytes as needed Check GN work up as LIA, Anti dsDNA, ANCA (MPO and LA-3), Anti GBM antibody Anemia work up with TSAT/Ferritin/Vitamin B12/folate Check for 25-OH vitamin D, iPTH work up for adrenal adenoma as outpt. work up for suppressed TSH as per primary team/endocrine Dose meds/antibiotics for reduced GFR. Avoid fleets enema/magnesium based laxatives. Avoid nephrotoxins/NSAIDs/ iodinated contrast (unless needed emergently) Glycemic control Further work up for as per primary team Thanks for allowing me to participate in care of your patient. Will follow patient with you. Please call if any Qs. d/w family and team. Dr Enrique Richards Office: [phone] Subjective: Noted events overnight. Patients intubated/sedated. on 70% FiO2. s/p V Tach and cardiac arrest Physical Examination: General Appearance: in no acute respiratory distress, ill appearing Vitals reviewed and noted as below Head; Atraumatic, normocephalic ENT: orally intubated Neck; supple no lymphadenopathy, no thyromegaly or bruit Lungs: Normal respiratory rate/effort. Breath sounds bilateral with wheeze and rales Heart: Normal rate. s1s2 normal. No rub or gallop. Extremities: pedal edema +. No varicose veins Neurological: Patient is sedated Skin: Warm and dry. Normal turgor. No rash. Palpitation: Normal elasticity for age Abdomen: Abdomen is soft. Bowel sounds +. There is no abdominal tenderness, no guarding/rigidity no organomegaly Psych: unable MSK: no joint tenderness or swelling. Digits and nails normal, no deformity : kidney or bladder not palpable. has mcintyre + Access: femoral shiley Labs/imaging reviewed. Past medical history, past surgical history, family history, social history, allergy reviewed and noted as below Family hx: no hx of CKD. Rest non-contributory work up: 1.4 mm left adrenal adenoma uA 2+ protein 2+ blood c3/c4 normal. HIV/Hep B and C neg TSH <0.02 740 Objective - Vital Signs/Intake and Output Vital Signs (last 24 hours): Temp Pulse Resp BP Pulse Ox 97.7 F 134 H 19 156/101 H 100 07/11/18 08:00 07/11/18 15:14 07/11/18 15:14 07/11/18 15:14 07/11/18 15:14 Intake and Output: 07/11/18 07/11/18 06:59 18:59 Intake Total 1893.2 1604.0 Output Total 320 390 Balance 1573.2 1214.0 - Medications Medications: Current Medications Acetaminophen (Tylenol 325mg Tab) 650 mg PO Q6H PRN PRN Reason: Pain, moderate (4-7) Last Admin: 07/10/18 00:00 Dose: 650 mg Albuterol/Ipratropium (Duoneb 3 Mg/0.5 Mg (3 Ml) Ud) 3 ml INH RQ4 [facility] Last Admin: 07/11/18 12:42 Dose: 3 ml Amiodarone HCl (Cordarone) 200 mg PO DAILY [facility] Aspirin (Ecotrin) 81 mg PO DAILY [facility] Ergocalciferol (Drisdol 50,000 Intl Units Cap) 1 cap PO Q7D [facility] Last Admin: 07/11/18 14:50 Dose: 1 cap Furosemide (Lasix) 40 mg IVP BID [facility] Hydrocortisone Sodium Succinate (Solu-Cortef) 50 mg IV Q12 [facility] Last Admin: 07/11/18 10:35 Dose: 50 mg Norepinephrine Bitartrate 8 mg (/ Dextrose) 258 mls @ 7.74 mls/hr IV .Q24H PRN; Protocol PRN Reason: TITRATE PER MD ORDER Last Titration: 07/10/18 06:00 Dose: 0 mcg/min, 0 mls/hr Meropenem 500 mg/ Sodium (Chloride) 100 mls @ 100 mls/hr IVPB Q12H [facility]; Protocol Last Admin: 07/11/18 12:48 Dose: 100 mls/hr Vasopressin 40 units/ Dextrose 40 mls @ 2.4 mls/hr IV .[id number] [facility]; Protocol Last Titration: 07/11/18 10:00 Dose: 0 units/min, 0 mls/hr Sodium Chloride (Sodium Chloride 0.9%) 1,000 mls @ 40 mls/hr IV .Q24H [facility] Last Admin: 07/11/18 14:52 Dose: Not Given Fentanyl Citrate 2,500 mcg/ (Sodium Chloride) 250 mls @ 11.2 mls/hr IV .[id number] [facility]; Protocol Last Titration: 07/11/18 07:30 Dose: 0 mcg/kg/hr, 0 mls/hr Heparin Sodium/Sodium Chloride (Heparin 99886 Units/250ml 1/2 Normal Saline) 25,000 units in 250 mls @ 10.207 mls/hr IV .Q24H PRN; Protocol PRN Reason: PROTOCOL Last Admin: 07/11/18 09:52 Dose: 18 units/kg/hr, 10.207 mls/hr Phenylephrine HCl 30 mg/ (Sodium Chloride) 253 mls @ 15.18 mls/hr IV .[id number] PRN; Protocol PRN Reason: TITRATE PER MD ORDER Last Admin: 07/11/18 14:50 Dose: 45 mcg/min, 22.77 mls/hr Insulin Aspart (Novolog) 0 unit SC Q6 [facility]; Protocol Last Admin: 07/11/18 12:49 Dose: 8 u Lactobacillus Acidophilus (Bacid Acidophilus) 1 cap PO Q12H [facility] Last Admin: 07/11/18 10:33 Dose: 1 cap Methimazole (Tapazole) 10 mg PO TID [facility] Last Admin: 07/11/18 14:50 Dose: 10 mg Ondansetron HCl (Zofran Inj) 4 mg IVP Q6H PRN PRN Reason: Nausea/Vomiting Last Admin: 10/06/18 13:06 Dose: 4 mg Pantoprazole Sodium (Protonix Susp) 40 mg PO BID [facility] Last Admin: 07/11/18 10:34 Dose: 40 mg - Labs Labs: 07/11/18 05:48 07/11/18 05:49 PT 36.4 SECONDS (9.7-12.2) H 07/11/18 09:40 INR 3.3 07/11/18 09:40 APTT 34 SECONDS (21-34) 07/11/18 09:40
--- NOTE | 2018-07-11 17:03 | CP.CCUPN ---
<ArinElisabethmonica L - Last Filed: 07/11/18 17:11> CCU Subjective - Physician Review Subjective (Free Text): Resident Critical Care Progress Note Patient examined at bedside. Patient is intubated but appears alert, somewhat agitated. Critical Care Time Spent (in minutes): 35 CCU Objective - Vital Signs / Intake & Output Vital Signs (Last 4 hours): Vital Signs Temp Pulse Resp BP Pulse Ox 07/11/18 16:00 98.8 F 07/11/18 15:14 134 H 19 156/101 H 100 07/11/18 15:00 115 H 13 100 07/11/18 14:50 128/73 07/11/18 14:42 103 H 12 128/73 100 07/11/18 14:12 98 H 12 128/73 100 07/11/18 14:00 93 H 12 100 07/11/18 13:42 97 H 12 122/67 100 07/11/18 13:12 91 H 12 132/79 100 07/11/18 13:00 92 H 12 100 07/11/18 12:42 94 H 12 117/71 100 Intake and Output (Last 8hrs): Intake & Output 07/11/18 07/11/18 07/11/18 06:59 14:59 22:59 Intake Total 1296.0 1315.9 349.3 Output Total 245 350 40 Balance 1051.0 965.9 309.3 Weight 125 lb 0.19 oz Intake: IV 164.0 65 Intake, IV Amount 832.0 850.9 299.3 Left Distal Port Femoral 40 88.0 16.6 Left Medial Port Femoral 279.2 182.1 22.5 Left Proximal Port 380 480 250 Femoral R Trialysis #1 132.8 100.8 10.2 Tube Feeding 300 400 50 Output: Urine 245 350 40 Urethral (Mcintyre) 200 350 40 Urine, Voided 45 Other: # Bowel Movements 0 0 - Physical Exam Head: Positive for: Atraumatic, Normocephalic Pupils: Positive for: PERRL Extroacular Muscles: Positive for: EOMI Conjunctiva: Positive for: Normal Mouth: Positive for: Moist Mucous Membranes Respiratory/Chest: Positive for: Good Air Exchange, Rhonchi Cardiovascular: Positive for: Normal S1, S2, Tachycardic Abdomen: Positive for: Normal Bowel Sounds. Negative for: Tenderness, Distention Upper Extremity: Positive for: Normal Inspection. Negative for: Cyanosis, Edema Lower Extremity: Positive for: Normal Inspection. Negative for: Edema, CALF TENDERNESS Skin: Positive for: Warm, Dry, Normal Color Psychiatric: Positive for: Alert - Medications Active Medications: Active Medications Generic Name Dose Route Start Last Admin Trade Name Freq PRN Reason Stop Dose Admin Acetaminophen 650 mg 07/07/18 20:03 07/10/18 00:00 Tylenol 325mg Tab PO 650 mg Q6H PRN Administration Pain, moderate (4-7) Albuterol/Ipratropium 3 ml 07/09/18 12:00 07/11/18 16:21 Duoneb 3 Mg/0.5 Mg (3 Ml) Ud INH 3 ml RQ4 MANOLO Administration Amiodarone HCl 200 mg 07/12/18 15:37 Cordarone PO DAILY MANOLO Aspirin 81 mg 07/12/18 10:00 Ecotrin PO DAILY MANOLO Ergocalciferol 1 cap 07/11/18 12:45 07/11/18 14:50 Drisdol 50,000 Intl Units Cap PO 1 cap Q7D MANOLO Administration Furosemide 40 mg 07/11/18 18:00 Lasix IVP BID MANOLO Hydrocortisone Sodium Succinate 50 mg 07/10/18 10:00 07/11/18 10:35 Solu-Cortef IV 50 mg Q12 MANOLO Administration Norepinephrine Bitartrate 8 mg 258 mls @ 7.74 mls/hr 07/08/18 23:45 07/10/18 06:00 / Dextrose IV 0 mcg/min .Q24H PRN 0 mls/hr TITRATE PER MD ORDER Titration Protocol 4 MCG/MIN Meropenem 500 mg/ Sodium 100 mls @ 100 mls/hr 07/10/18 00:30 07/11/18 12:48 Chloride IVPB 100 mls/hr Q12H MANOLO Administration Protocol Vasopressin 40 units/ Dextrose 40 mls @ 2.4 mls/hr 07/10/18 09:30 07/11/18 10:00 IV 0 units/min .[id number] MANOLO 0 mls/hr Titration Protocol 0.04 UNITS/MIN Sodium Chloride 1,000 mls @ 40 mls/hr 07/10/18 09:45 07/11/18 14:52 Sodium Chloride 0.9% IV Not Given .Q24H MANOLO Fentanyl Citrate 2,500 mcg/ 250 mls @ 11.2 mls/hr 07/10/18 19:00 07/11/18 07:30 Sodium Chloride IV 0 mcg/kg/hr .[id number] MANOLO 0 mls/hr Titration Protocol 2 MCG/KG/HR Heparin Sodium/Sodium Chloride 25,000 units in 250 mls @ 10.207 mls/hr 07/11/18 09:20 07/11/18 09:52 Heparin 20938 Units/250ml 1/2 Normal Saline IV 18 units/kg/hr .Q24H PRN 10.207 mls/hr PROTOCOL Administration Protocol 18 UNITS/KG/HR Phenylephrine HCl 30 mg/ 253 mls @ 15.18 mls/hr 07/11/18 13:07 07/11/18 14:50 Sodium Chloride IV 45 mcg/min .[id number] PRN 22.77 mls/hr TITRATE PER MD ORDER Administration Protocol 30 MCG/MIN Insulin Aspart 0 unit 07/11/18 08:28 07/11/18 12:49 Novolog SC 8 u Q6 MANOLO Administration Protocol Lactobacillus Acidophilus 1 cap 07/08/18 20:00 07/11/18 10:33 Bacid Acidophilus PO 1 cap Q12H MANOLO Administration Methimazole 10 mg 07/11/18 10:00 07/11/18 14:50 Tapazole PO 10 mg TID MANOLO Administration Ondansetron HCl 4 mg 07/07/18 18:00 07/08/18 13:06 Zofran Inj IVP 4 mg Q6H PRN Administration Nausea/Vomiting Pantoprazole Sodium 40 mg 07/11/18 10:00 07/11/18 10:34 Protonix Susp PO 40 mg BID MANOLO Administration - Patient Studies Lab Studies: Microbiology Studies 07/10/18 11:01 Mycobacterial Culture - Preliminary Other: Please Indicate 07/09/18 10:32 Gram Stain - Final Trachasp Sputum Culture - Final Yeast Species 07/09/18 17:17 Blood Culture - Preliminary Blood NO GROWTH AFTER 24 HOURS 07/09/18 17:16 Blood Culture - Preliminary Blood NO GROWTH AFTER 24 HOURS 07/07/18 16:47 Blood Culture - Preliminary Blood-Venous NO GROWTH AFTER 3 DAYS 07/07/18 16:47 Blood Culture - Preliminary Blood-Venous NO GROWTH AFTER 3 DAYS Lab Studies 07/11/18 07/11/1807/11/18 Range/Units 12:33 09:40 06:01 WBC (4.8-10.8) K/uL RBC (3.80-5.20) Mil/uL Hgb (11.0-16.0) g/dL Hct (34.0-47.0) % MCV (81.0-99.0) fL MCH (27.0-31.0) pg MCHC (33.0-37.0) g/dL RDW (11.5-14.5) % Plt Count (130-400) K/uL MPV (7.2-11.7) fL Neut % (Auto) (50.0-75.0) % Lymph % (Auto) (20.0-40.0) % [place] % (Auto) (0.0-10.0) % Eos % (Auto) (0.0-4.0) % Baso % (Auto) (0.0-2.0) % Neut # (Auto) (1.8-7.0) K/uL Lymph # (Auto) (1.0-4.3) K/uL [place] # (Auto) (0.0-0.8) K/uL Eos # (Auto) (0.0-0.7) K/uL Baso # (Auto) (0.0-0.2) K/uL Retic Count (0.5-1.5) % PT 36.4 H (9.7-12.2) SECONDS INR 3.3 APTT 34 (21-34) SECONDS Puncture Site pCO2 (35-45) mm/Hg pO2 (80-100) mm/Hg HCO3 (21-28) mmol/L ABG pH (7.35-7.45) ABG Total CO2 (22-28) mmol/L ABG O2 Saturation (95-98) % ABG Base Excess (-2.0-3.0) mmol/L ABG Hemoglobin (11.7-17.4) g/dL ABG Carboxyhemoglobin (0.5-1.5) % POC ABG HHb (Measured) (0.0-5.0) % ABG Methemoglobin (0.0-3.0) % Kevon Test A-a O2 Difference mm/Hg Respiratory Index Hgb O2 Saturation (95.0-98.0) % Vent Mode Mechanical Rate FiO2 % Tidal Volume PEEP Sodium (132-148) mmol/L Potassium (3.6-5.2) mmol/L Chloride (98-107) mmol/L Carbon Dioxide (22-30) mmol/L Anion Gap (10-20) BUN (7-17) mg/dL Creatinine (0.7-1.2) mg/dL Est GFR ( Amer) Est GFR (Non-Af Amer) POC Glucose (mg/dL) 312 H 412 H* (65-110) mg/dL Random Glucose (65-105) mg/dL Calcium (8.6-10.4) mg/dl Phosphorus (2.5-4.5) mg/dL Magnesium (1.6-2.3) mg/dL Total Bilirubin (0.2-1.3) mg/dL AST (14-36) U/L ALT (9-52) U/L Alkaline Phosphatase (38-126) U/L Total Creatine Kinase (30-135) U/L CK-MB (Mass) (0.0-3.38) ng/mL Troponin I (0.00-0.120) ng/mL Total Protein (6.3-8.3) g/dL Albumin (3.5-5.0) g/dL Globulin (2.2-3.9) gm/dL Albumin/Globulin Ratio (1.0-2.1) 25-OH Vitamin D Total (30.0-100.0) NG/ML Free T4 (0.78-2.19) ng/dL TSH 3rd Generation (0.46-4.68) mIU/L PTH Intact Whole Molec (14-64) pg/mL Random Vancomycin ug/mL LAI Screen (Negative) LIA Titer LIA Titer 2 LIA Pattern LIA Pattern 2 Double Strand DNA Ab IU/mL 07/11/18 07/11/18 07/11/18 Range/Units 05:49 05:49 05:49 WBC (4.8-10.8) K/uL RBC (3.80-5.20) Mil/uL Hgb (11.0-16.0) g/dL Hct (34.0-47.0) % MCV (81.0-99.0) fL MCH (27.0-31.0) pg MCHC (33.0-37.0) g/dL RDW (11.5-14.5) % Plt Count (130-400) K/uL MPV (7.2-11.7) fL Neut % (Auto) (50.0-75.0) % Lymph % (Auto) (20.0-40.0) % [place] % (Auto) (0.0-10.0) % Eos % (Auto) (0.0-4.0) % Baso % (Auto) (0.0-2.0) % Neut # (Auto) (1.8-7.0) K/uL Lymph # (Auto) (1.0-4.3) K/uL [place] # (Auto) (0.0-0.8) K/uL Eos # (Auto) (0.0-0.7) K/uL Baso # (Auto) (0.0-0.2) K/uL Retic Count (0.5-1.5) % PT (9.7-12.2) SECONDS INR APTT (21-34) SECONDS Puncture Site pCO2 (35-45) mm/Hg pO2 (80-100) mm/Hg HCO3 (21-28) mmol/L ABG pH (7.35-7.45) ABG Total CO2 (22-28) mmol/L ABG O2 Saturation (95-98) % ABG Base Excess (-2.0-3.0) mmol/L ABG Hemoglobin (11.7-17.4) g/dL ABG Carboxyhemoglobin (0.5-1.5) % POC ABG HHb (Measured) (0.0-5.0) % ABG Methemoglobin (0.0-3.0) % Kevon Test A-a O2 Difference mm/Hg Respiratory Index Hgb O2 Saturation (95.0-98.0) % Vent Mode Mechanical Rate FiO2 % Tidal Volume PEEP Sodium 141 (132-148) mmol/L Potassium 3.0 L (3.6-5.2) mmol/L Chloride 104 (98-107) mmol/L Carbon Dioxide 22 (22-30) mmol/L Anion Gap 18 (10-20) BUN 43 H (7-17) mg/dL Creatinine 2.3 H (0.7-1.2) mg/dL Est GFR ( Amer) 27 Est GFR (Non-Af Amer) 22 POC Glucose (mg/dL) (65-110) mg/dL Random Glucose 364 H (65-105) mg/dL Calcium 6.4 L (8.6-10.4) mg/dl Phosphorus 2.7 (2.5-4.5) mg/dL Magnesium 2.2 (1.6-2.3) mg/dL Total Bilirubin 0.6 (0.2-1.3) mg/dL AST 548 H (14-36) U/L ALT 427 H (9-52) U/L Alkaline Phosphatase 96 (38-126) U/L Total Creatine Kinase (30-135) U/L CK-MB (Mass) (0.0-3.38) ng/mL Troponin I (0.00-0.120) ng/mL Total Protein 4.5 L (6.3-8.3) g/dL Albumin 2.2 L (3.5-5.0) g/dL Globulin 2.3 (2.2-3.9) gm/dL Albumin/Globulin Ratio 0.9 L (1.0-2.1) 25-OH Vitamin D Total (30.0-100.0) NG/ML Free T4 3.56 H (0.78-2.19) ng/dL TSH 3rd Generation < 0.02 L (0.46-4.68) mIU/L PTH Intact Whole Molec (14-64) pg/mL Random Vancomycin < 5.0 ug/mL LIA Screen (Negative) LAI Titer LIA Titer 2 LIA Pattern LIA Pattern 2 Double Strand DNA Ab IU/mL 07/11/18 07/11/18 07/11/18 Range/Units 05:49 05:48 05:20 WBC 11.1 H (4.8-10.8) K/uL RBC 2.92 L (3.80-5.20) Mil/uL Hgb 8.8 L (11.0-16.0) g/dL Hct 25.6 L (34.0-47.0) % MCV 87.8 (81.0-99.0) fL MCH 30.3 (27.0-31.0) pg MCHC 34.5 (33.0-37.0) g/dL RDW 15.9 H (11.5-14.5) % Plt Count 217 (130-400) K/uL MPV 8.7 (7.2-11.7) fL Neut % (Auto) 78.8 H (50.0-75.0) % Lymph % (Auto) 14.5 L (20.0-40.0) % [place] % (Auto) 6.3 (0.0-10.0) % Eos % (Auto) 0.1 (0.0-4.0) % Baso % (Auto) 0.3 (0.0-2.0) % Neut # (Auto) 8.7 H (1.8-7.0) K/uL Lymph # (Auto) 1.6 (1.0-4.3) K/uL [place] # (Auto) 0.7 (0.0-0.8) K/uL Eos # (Auto) 0.0 (0.0-0.7) K/uL Baso # (Auto) 0.0 (0.0-0.2) K/uL Retic Count 1.8 H (0.5-1.5) % PT (9.7-12.2) SECONDS INR APTT (21-34) SECONDS Puncture Site Rr pCO2 22 L (35-45) mm/Hg pO2 137 H (80-100) mm/Hg HCO3 23.7 (21-28) mmol/L ABG pH 7.56 H (7.35-7.45) ABG Total CO2 20.4 L (22-28) mmol/L ABG O2 Saturation 99.2 H (95-98) % ABG Base Excess -1.6 (-2.0-3.0) mmol/L ABG Hemoglobin 9.0 L (11.7-17.4) g/dL ABG Carboxyhemoglobin 1.2 (0.5-1.5) % POC ABG HHb (Measured) 0.8 (0.0-5.0) % ABG Methemoglobin 0.8 (0.0-3.0) % Kevon Test Na A-a O2 Difference 335.0 mm/Hg Respiratory Index 2.4 Hgb O2 Saturation 97.2 (95.0-98.0) % Vent Mode Prvc Mechanical Rate 20 FiO2 70.0 % Tidal Volume 450 PEEP 5 Sodium (132-148) mmol/L Potassium (3.6-5.2) mmol/L Chloride (98-107) mmol/L Carbon Dioxide (22-30) mmol/L Anion Gap (10-20) BUN (7-17) mg/dL Creatinine (0.7-1.2) mg/dL Est GFR ( Amer) Est GFR (Non-Af Amer) POC Glucose (mg/dL) (65-110) mg/dL Random Glucose (65-105) mg/dL Calcium (8.6-10.4) mg/dl Phosphorus (2.5-4.5) mg/dL Magnesium (1.6-2.3) mg/dL Total Bilirubin (0.2-1.3) mg/dL AST (14-36) U/L ALT (9-52) U/L Alkaline Phosphatase (38-126) U/L Total Creatine Kinase (30-135) U/L CK-MB (Mass) (0.0-3.38) ng/mL Troponin I (0.00-0.120) ng/mL Total Protein (6.3-8.3) g/dL Albumin (3.5-5.0) g/dL Globulin (2.2-3.9) gm/dL Albumin/Globulin Ratio (1.0-2.1) 25-OH Vitamin D Total < 12.8 L (30.0-100.0) NG/ML Free T4 (0.78-2.19) ng/dL TSH 3rd Generation (0.46-4.68) mIU/L PTH Intact Whole Molec (14-64) pg/mL Random Vancomycin ug/mL LIA Screen (Negative) LIA Titer LIA Titer 2 LIA Pattern LIA Pattern 2 Double Strand DNA Ab IU/mL 07/10/18 07/10/18 07/10/18 Range/Units 23:43 20:53 20:53 WBC 12.4 H D (4.8-10.8) K/uL RBC 2.92 L (3.80-5.20) Mil/uL Hgb 8.7 L (11.0-16.0) g/dL Hct 25.7 L (34.0-47.0) % MCV 87.8 (81.0-99.0) fL MCH 29.6 (27.0-31.0) pg MCHC 33.8 (33.0-37.0) g/dL RDW 15.6 H (11.5-14.5) % Plt Count 222 (130-400) K/uL MPV 8.2 (7.2-11.7) fL Neut % (Auto) 84.2 H (50.0-75.0) % Lymph % (Auto) 10.8 L (20.0-40.0) % [place] % (Auto) 4.5 (0.0-10.0) % Eos % (Auto) 0.1 (0.0-4.0) % Baso % (Auto) 0.4 (0.0-2.0) % Neut # (Auto) 10.4 H (1.8-7.0) K/uL Lymph # (Auto) 1.3 (1.0-4.3) K/uL [place] # (Auto) 0.6 (0.0-0.8) K/uL Eos # (Auto) 0.0 (0.0-0.7) K/uL Baso # (Auto) 0.0 (0.0-0.2) K/uL Retic Count (0.5-1.5) % PT (9.7-12.2) SECONDS INR APTT (21-34) SECONDS Puncture Site pCO2 (35-45) mm/Hg pO2 (80-100) mm/Hg HCO3 (21-28) mmol/L ABG pH (7.35-7.45) ABG Total CO2 (22-28) mmol/L ABG O2 Saturation (95-98) % ABG Base Excess (-2.0-3.0) mmol/L ABG Hemoglobin (11.7-17.4) g/dL ABG Carboxyhemoglobin (0.5-1.5) % POC ABG HHb (Measured) (0.0-5.0) % ABG Methemoglobin (0.0-3.0) % Kevon Test A-a O2 Difference mm/Hg Respiratory Index Hgb O2 Saturation (95.0-98.0) % Vent Mode Mechanical Rate FiO2 % Tidal Volume PEEP Sodium 141 (132-148) mmol/L Potassium 3.5 L (3.6-5.2) mmol/L Chloride 101 (98-107) mmol/L Carbon Dioxide 20 L (22-30) mmol/L Anion Gap 24 H (10-20) BUN 42 H (7-17) mg/dL Creatinine 2.2 H (0.7-1.2) mg/dL Est GFR ( Amer) 28 Est GFR (Non-Af Amer) 23 POC Glucose (mg/dL) 307 H (65-110) mg/dL Random Glucose 302 H (65-105) mg/dL Calcium 6.3 L (8.6-10.4) mg/dl Phosphorus 3.4 (2.5-4.5) mg/dL Magnesium 2.4 H (1.6-2.3) mg/dL Total Bilirubin 0.8 (0.2-1.3) mg/dL AST 536 H D (14-36) U/L ALT 366 H D (9-52) U/L Alkaline Phosphatase 82 (38-126) U/L Total Creatine Kinase 314 H (30-135) U/L CK-MB (Mass) 2.98 (0.0-3.38) ng/mL Troponin I 10.4000 H* (0.00-0.120) ng/mL Total Protein 4.4 L (6.3-8.3) g/dL Albumin 2.1 L (3.5-5.0) g/dL Globulin 2.3 (2.2-3.9) gm/dL Albumin/Globulin Ratio 0.9 L (1.0-2.1) 25-OH Vitamin D Total (30.0-100.0) NG/ML Free T4 (0.78-2.19) ng/dL TSH 3rd Generation (0.46-4.68) mIU/L PTH Intact Whole Molec (14-64) pg/mL Random Vancomycin ug/mL LIA Screen (Negative) LIA Titer LIA Titer 2 LIA Pattern LIA Pattern 2 Double Strand DNA Ab IU/mL 07/10/18 07/10/18 07/10/18 Range/Units 17:45 13:07 11:13 WBC (4.8-10.8) K/uL RBC (3.80-5.20) Mil/uL Hgb (11.0-16.0) g/dL Hct (34.0-47.0) % MCV (81.0-99.0) fL MCH (27.0-31.0) pg MCHC (33.0-37.0) g/dL RDW (11.5-14.5) % Plt Count (130-400) K/uL MPV (7.2-11.7) fL Neut % (Auto) (50.0-75.0) % Lymph % (Auto) (20.0-40.0) % [place] % (Auto) (0.0-10.0) % Eos % (Auto) (0.0-4.0) % Baso % (Auto) (0.0-2.0) % Neut # (Auto) (1.8-7.0) K/uL Lymph # (Auto) (1.0-4.3) K/uL [place] # (Auto) (0.0-0.8) K/uL Eos # (Auto) (0.0-0.7) K/uL Baso # (Auto) (0.0-0.2) K/uL Retic Count (0.5-1.5) % PT (9.7-12.2) SECONDS INR APTT (21-34) SECONDS Puncture Site pCO2 (35-45) mm/Hg pO2 (80-100) mm/Hg HCO3 (21-28) mmol/L ABG pH (7.35-7.45) ABG Total CO2 (22-28) mmol/L ABG O2 Saturation (95-98) % ABG Base Excess (-2.0-3.0) mmol/L ABG Hemoglobin (11.7-17.4) g/dL ABG Carboxyhemoglobin (0.5-1.5) % POC ABG HHb (Measured) (0.0-5.0) % ABG Methemoglobin (0.0-3.0) % Kevon Test A-a O2 Difference mm/Hg Respiratory Index Hgb O2 Saturation (95.0-98.0) % Vent Mode Mechanical Rate FiO2 % Tidal Volume PEEP Sodium (132-148) mmol/L Potassium (3.6-5.2) mmol/L Chloride (98-107) mmol/L Carbon Dioxide (22-30) mmol/L Anion Gap (10-20) BUN (7-17) mg/dL Creatinine (0.7-1.2) mg/dL Est GFR ( Amer) Est GFR (Non-Af Amer) POC Glucose (mg/dL) 290 H 246 H (65-110) mg/dL Random Glucose (65-105) mg/dL Calcium (8.6-10.4) mg/dl Phosphorus (2.5-4.5) mg/dL Magnesium (1.6-2.3) mg/dL Total Bilirubin (0.2-1.3) mg/dL AST (14-36) U/L ALT (9-52) U/L Alkaline Phosphatase (38-126) U/L Total Creatine Kinase (30-135) U/L CK-MB (Mass) (0.0-3.38) ng/mL Troponin I (0.00-0.120) ng/mL Total Protein (6.3-8.3) g/dL Albumin (3.5-5.0) g/dL Globulin (2.2-3.9) gm/dL Albumin/Globulin Ratio (1.0-2.1) 25-OH Vitamin D Total (30.0-100.0) NG/ML Free T4 (0.78-2.19) ng/dL TSH 3rd Generation (0.46-4.68) mIU/L PTH Intact Whole Molec 708 H (14-64) pg/mL Random Vancomycin ug/mL LIA Screen (Negative) LIA Titer LIA Titer 2 LIA Pattern LIA Pattern 2 Double Strand DNA Ab IU/mL 07/08/18 Range/Units 23:06 WBC (4.8-10.8) K/uL RBC (3.80-5.20) Mil/uL Hgb (11.0-16.0) g/dL Hct (34.0-47.0) % MCV (81.0-99.0) fL MCH (27.0-31.0) pg MCHC (33.0-37.0) g/dL RDW (11.5-14.5) % Plt Count (130-400) K/uL MPV (7.2-11.7) fL Neut % (Auto) (50.0-75.0) % Lymph % (Auto) (20.0-40.0) % [place] % (Auto) (0.0-10.0) % Eos % (Auto) (0.0-4.0) % Baso % (Auto) (0.0-2.0) % Neut # (Auto) (1.8-7.0) K/uL Lymph # (Auto) (1.0-4.3) K/uL [place] # (Auto) (0.0-0.8) K/uL Eos # (Auto) (0.0-0.7) K/uL Baso # (Auto) (0.0-0.2) K/uL Retic Count (0.5-1.5) % PT (9.7-12.2) SECONDS INR APTT (21-34) SECONDS Puncture Site pCO2 (35-45) mm/Hg pO2 (80-100) mm/Hg HCO3 (21-28) mmol/L ABG pH (7.35-7.45) ABG Total CO2 (22-28) mmol/L ABG O2 Saturation (95-98) % ABG Base Excess (-2.0-3.0) mmol/L ABG Hemoglobin (11.7-17.4) g/dL ABG Carboxyhemoglobin (0.5-1.5) % POC ABG HHb (Measured) (0.0-5.0) % ABG Methemoglobin (0.0-3.0) % Kevon Test A-a O2 Difference mm/Hg Respiratory Index Hgb O2 Saturation (95.0-98.0) % Vent Mode Mechanical Rate FiO2 % Tidal Volume PEEP Sodium (132-148) mmol/L Potassium (3.6-5.2) mmol/L Chloride (98-107) mmol/L Carbon Dioxide (22-30) mmol/L Anion Gap (10-20) BUN (7-17) mg/dL Creatinine (0.7-1.2) mg/dL Est GFR ( Amer) Est GFR (Non-Af Amer) POC Glucose (mg/dL) (65-110) mg/dL Random Glucose (65-105) mg/dL Calcium (8.6-10.4) mg/dl Phosphorus (2.5-4.5) mg/dL Magnesium (1.6-2.3) mg/dL Total Bilirubin (0.2-1.3) mg/dL AST (14-36) U/L ALT (9-52) U/L Alkaline Phosphatase (38-126) U/L Total Creatine Kinase (30-135) U/L CK-MB (Mass) (0.0-3.38) ng/mL Troponin I (0.00-0.120) ng/mL Total Protein (6.3-8.3) g/dL Albumin (3.5-5.0) g/dL Globulin (2.2-3.9) gm/dL Albumin/Globulin Ratio (1.0-2.1) 25-OH Vitamin D Total (30.0-100.0) NG/ML Free T4 (0.78-2.19) ng/dL TSH 3rd Generation (0.46-4.68) mIU/L PTH Intact Whole Molec (14-64) pg/mL Random Vancomycin ug/mL LIA Screen Negative (Negative) LIA Titer TEST NOT PERFORMED LIA Titer 2 TEST NOT PERFORMED LIA Pattern TEST NOT PERFORMED LIA Pattern 2 TEST NOT PERFORMED Double Strand DNA Ab <1 IU/mL Laboratory Results - last 24 hr 07/08/18 07/10/18 07/10/18 23:06 11:13 13:07 WBC RBC Hgb Hct MCV MCH MCHC RDW Plt Count MPV Neut % (Auto) Lymph % (Auto) [place] % (Auto) Eos % (Auto) Baso % (Auto) Neut # (Auto) Lymph # (Auto) [place] # (Auto) Eos # (Auto) Baso # (Auto) Retic Count PT INR APTT Puncture Site pCO2 pO2 HCO3 ABG pH ABG Total CO2 ABG O2 Saturation ABG Base Excess ABG Hemoglobin ABG Carboxyhemoglobin POC ABG HHb (Measured) ABG Methemoglobin [place] Test A-a O2 Difference Respiratory Index Hgb O2 Saturation Vent Mode Mechanical Rate FiO2 Tidal Volume PEEP Sodium Potassium Chloride Carbon Dioxide Anion Gap BUN Creatinine Est GFR ( Amer) Est GFR (Non-Af Amer) POC Glucose (mg/dL) 246 H Random Glucose Calcium Phosphorus Magnesium Total Bilirubin AST ALT Alkaline Phosphatase Total Creatine Kinase CK-MB (Mass) Troponin I Total Protein Albumin Globulin Albumin/Globulin Ratio 25-OH Vitamin D Total Free T4 TSH 3rd Generation PTH Intact Whole Molec 708 H Random Vancomycin LIA Screen Negative LIA Titer TEST NOT PERFORMED LIA Titer 2 TEST NOT PERFORMED LIA Pattern TEST NOT PERFORMED LIA Pattern 2 TEST NOT PERFORMED Double Strand DNA Ab <1 07/10/18 07/10/1807/10/18 17:45 20:53 20:53 WBC 12.4 H D RBC 2.92 L Hgb 8.7 L Hct 25.7 L MCV 87.8 MCH 29.6 MCHC 33.8 RDW 15.6 H Plt Count 222 MPV 8.2 Neut % (Auto) 84.2 H Lymph % (Auto) 10.8 L [place] % (Auto) 4.5 Eos % (Auto) 0.1 Baso % (Auto) 0.4 Neut # (Auto) 10.4 H Lymph # (Auto) 1.3 [place] # (Auto) 0.6 Eos # (Auto) 0.0 Baso # (Auto) 0.0 Retic Count PT INR APTT Puncture Site pCO2 pO2 HCO3 ABG pH ABG Total CO2 ABG O2 Saturation ABG Base Excess ABG Hemoglobin ABG Carboxyhemoglobin POC ABG HHb (Measured) ABG Methemoglobin [place] Test A-a O2 Difference Respiratory Index Hgb O2 Saturation Vent Mode Mechanical Rate FiO2 Tidal Volume PEEP Sodium 141 Potassium 3.5 L Chloride 101 Carbon Dioxide 20 L Anion Gap 24 H BUN 42 H Creatinine 2.2 H Est GFR ( Amer) 28 Est GFR (Non-Af Amer) 23 POC Glucose (mg/dL) 290 H Random Glucose 302 H Calcium 6.3 L Phosphorus 3.4 Magnesium 2.4 H Total Bilirubin 0.8 AST 536 H D ALT 366 H D Alkaline Phosphatase 82 Total Creatine Kinase 314 H CK-MB (Mass) 2.98 Troponin I 10.4000 H* Total Protein 4.4 L Albumin 2.1 L Globulin 2.3 Albumin/Globulin Ratio 0.9 L 25-OH Vitamin D Total Free T4 TSH 3rd Generation PTH Intact Whole Molec Random Vancomycin LIA Screen LIA Titer LIA Titer 2 LIA Pattern LIA Pattern 2 Double Strand DNA Ab 07/10/18 07/11/18 07/11/18 23:43 05:20 05:48 WBC 11.1 H RBC 2.92 L Hgb 8.8 L Hct 25.6 L MCV 87.8 MCH 30.3 MCHC 34.5 RDW 15.9 H Plt Count 217 MPV 8.7 Neut % (Auto) 78.8 H Lymph % (Auto) 14.5 L [place] % (Auto) 6.3 Eos % (Auto) 0.1 Baso % (Auto) 0.3 Neut # (Auto) 8.7 H Lymph # (Auto) 1.6 [place] # (Auto) 0.7 Eos # (Auto) 0.0 Baso # (Auto) 0.0 Retic Count 1.8 H PT INR APTT Puncture Site Rr pCO2 22 L pO2 137 H HCO3 23.7 ABG pH 7.56 H ABG Total CO2 20.4 L ABG O2 Saturation 99.2 H ABG Base Excess -1.6 ABG Hemoglobin 9.0 L ABG Carboxyhemoglobin 1.2 POC ABG HHb (Measured) 0.8 ABG Methemoglobin 0.8 [place] Test Na A-a O2 Difference 335.0 Respiratory Index 2.4 Hgb O2 Saturation 97.2 Vent Mode Prvc Mechanical Rate 20 FiO2 70.0 Tidal Volume 450 PEEP 5 Sodium Potassium Chloride Carbon Dioxide Anion Gap BUN Creatinine Est GFR ( Amer) Est GFR (Non-Af Amer) POC Glucose (mg/dL) 307 H Random Glucose Calcium Phosphorus Magnesium Total Bilirubin AST ALT Alkaline Phosphatase Total Creatine Kinase CK-MB (Mass) Troponin I Total Protein Albumin Globulin Albumin/Globulin Ratio 25-OH Vitamin D Total Free T4 TSH 3rd Generation PTH Intact Whole Molec Random Vancomycin LIA Screen LIA Titer LIA Titer 2 LIA Pattern LIA Pattern 2 Double Strand DNA Ab 07/11/18 07/11/18 07/11/18 05:49 05:49 05:49 WBC RBC Hgb Hct MCV MCH MCHC RDW Plt Count MPV Neut % (Auto) Lymph % (Auto) [place] % (Auto) Eos % (Auto) Baso % (Auto) Neut # (Auto) Lymph # (Auto) [place] # (Auto) Eos # (Auto) Baso # (Auto) Retic Count PT INR APTT Puncture Site pCO2 pO2 HCO3 ABG pH ABG Total CO2 ABG O2 Saturation ABG Base Excess ABG Hemoglobin ABG Carboxyhemoglobin POC ABG HHb (Measured) ABG Methemoglobin [place] Test A-a O2 Difference Respiratory Index Hgb O2 Saturation Vent Mode Mechanical Rate FiO2 Tidal Volume PEEP Sodium 141 Potassium 3.0 L Chloride 104 Carbon Dioxide 22 Anion Gap 18 BUN 43 H Creatinine 2.3 H Est GFR ( Amer) 27 Est GFR (Non-Af Amer) 22 POC Glucose (mg/dL) Random Glucose 364 H Calcium 6.4 L Phosphorus 2.7 Magnesium 2.2 Total Bilirubin 0.6 AST 548 H ALT 427 H Alkaline Phosphatase 96 Total Creatine Kinase CK-MB (Mass) Troponin I Total Protein 4.5 L Albumin 2.2 L Globulin 2.3 Albumin/Globulin Ratio 0.9 L 25-OH Vitamin D Total < 12.8 L Free T4 TSH 3rd Generation < 0.02 L PTH Intact Whole Molec Random Vancomycin < 5.0 LIA Screen LIA Titer LIA Titer 2 LIA Pattern LIA Pattern 2 Double Strand DNA Ab 07/11/18 07/11/18 07/11/18 05:49 06:01 09:40 WBC RBC Hgb Hct MCV MCH MCHC RDW Plt Count MPV Neut % (Auto) Lymph % (Auto) [place] % (Auto) Eos % (Auto) Baso % (Auto) Neut # (Auto) Lymph # (Auto) [place] # (Auto) Eos # (Auto) Baso # (Auto) Retic Count PT 36.4 H INR 3.3 APTT 34 Puncture Site pCO2 pO2 HCO3 ABG pH ABG Total CO2 ABG O2 Saturation ABG Base Excess ABG Hemoglobin ABG Carboxyhemoglobin POC ABG HHb (Measured) ABG Methemoglobin [place] Test A-a O2 Difference Respiratory Index Hgb O2 Saturation Vent Mode Mechanical Rate FiO2 Tidal Volume PEEP Sodium Potassium Chloride Carbon Dioxide Anion Gap BUN Creatinine Est GFR ( Amer) Est GFR (Non-Af Amer) POC Glucose (mg/dL) 412 H* Random Glucose Calcium Phosphorus Magnesium Total Bilirubin AST ALT Alkaline Phosphatase Total Creatine Kinase CK-MB (Mass) Troponin I Total Protein Albumin Globulin Albumin/Globulin Ratio 25-OH Vitamin D Total Free T4 3.56 H TSH 3rd Generation PTH Intact Whole [place]olec Random Vancomycin LIA Screen LIA Titer LIA Titer 2 LIA Pattern LIA Pattern 2 Double Strand DNA Ab 07/11/18 12:33 WBC RBC Hgb Hct MCV MCH MCHC RDW Plt Count MPV Neut % (Auto) Lymph % (Auto) [place] % (Auto) Eos % (Auto) Baso % (Auto) Neut # (Auto) Lymph # (Auto) [place] # (Auto) Eos # (Auto) Baso # (Auto) Retic Count PT INR APTT Puncture Site pCO2 pO2 HCO3 ABG pH ABG Total CO2 ABG O2 Saturation ABG Base Excess ABG Hemoglobin ABG Carboxyhemoglobin POC ABG HHb (Measured) ABG Methemoglobin [place] Test A-a O2 Difference Respiratory Index Hgb O2 Saturation Vent Mode Mechanical Rate FiO2 Tidal Volume PEEP Sodium Potassium Chloride Carbon Dioxide Anion Gap BUN Creatinine Est GFR ( Amer) Est GFR (Non-Af Amer) POC Glucose (mg/dL) 312 H Random Glucose Calcium Phosphorus Magnesium Total Bilirubin AST ALT Alkaline Phosphatase Total Creatine Kinase CK-MB (Mass) Troponin I Total Protein Albumin Globulin Albumin/Globulin Ratio 25-OH Vitamin D Total Free T4 TSH 3rd Generation PTH Intact Whole Molec Random Vancomycin LIA Screen LIA Titer LIA Titer 2 LIA Pattern LIA Pattern 2 Double Strand DNA Ab EKG/Cardiology Studies: Cardiology / EKG Studies 07/11/18 09:16 EKG [ELECTROCARDIOGRAM] Stat Comment: Mode Of Transportation: Reason For Exam: concern for M.I. Fingerstick Blood Sugar Results: 312 Review of Systems - Review of Systems Systems not reviewed;Unavailable: Intubated Assessment/Plan - Assessment and Plan (Free Text) Assessment: 52 y/o female with past medical history of T2DM presents to [facility] with c/p cough and malaise for the past 2-3 weeks. coughing associated with vomiting. (+) vomiting food contents. Seen in ED three days earlier dx with UTI & started on Bactrim. Admitted for respiratory failure and ARF. Intubated (07/08). Plan: Neuro: - fentanyl discontinued Pulm: - acute respiratory failure, from suspected aspiration pneumonia with recent vomiting episodes x 2 weeks. High risk for aspiration pneumonitis/pneumonia. - Duonebs 2 ml INH RQ4 CV: - septic shock on pressors: norepinephrine, phenylephrine - amiodarone drip discontinued, amiodarone 200 mg PO daily - Cardiology consulted. Appreciate recs. - repeat ECHO from today shows left ventricular thrombus - one time heparin bolus, now on heparin drip - aspirin 81 mg daily Heme: - no acute issues - continue to monitor H/H Renal: - NS 40 ccs/hr - Dialyzed (07/08) for NEHA with worsening metabolic acidosis - Lasix 40 mg IV BID Endo: - ISS for coverage, q6h - Solu-cortef 50 mg IV Q12 - TSH <0.02, Total T3 0.826, Free T4 4.18 - methimazole 10 mg PO TID GI: - NPO, tube feeds, Nepro ID: - aspiration pneumonitis/pneumonia, and recent UTI - afebrile, leukocytosis trending down - Merrem 500 mg IV Q12H DVT proph - heparin ggt GI proph - protonix Access: [email or web address] for strict I/O's during acute illness, RIJ Trialysis (07/08), Left Fem TLC (07/09) Code status - full code Case and plan was reviewed and discussed with Dr. Dayo Hinkle PGY-1 - Date & Time Date: 07/11/18 Time: 08:00 <Merlin Oshea - Last Filed: 07/11/18 17:59> CCU Objective - Vital Signs / Intake & Output Vital Signs (Last 4 hours): Vital Signs Temp Pulse Resp BP Pulse Ox 07/11/18 17:04 119/71 07/11/18 16:00 98.8 F 07/11/18 15:14 134 H 19 156/101 H 100 07/11/18 15:00 115 H 13 100 07/11/18 14:50 128/73 07/11/18 14:42 103 H 12 128/73 100 07/11/18 14:12 98 H 12 128/73 100 07/11/18 14:00 93 H 12 100 07/11/18 13:42 97 H 12 122/67 100 Intake and Output (Last 8hrs): Intake & Output 07/11/18 07/11/18 07/11/18 06:59 14:59 22:59 Intake Total 1296.0 1315.9 419.5 Output Total 245 350 40 Balance 1051.0 965.9 379.5 Weight 125 lb 0.19 oz Intake: IV 164.0 65 Intake, IV Amount 832.0 850.9 319.5 Left Distal Port Femoral 40 88.0 16.6 Left Medial Port Femoral 279.2 182.1 32.5 Left Proximal Port 380 480 250 Femoral R Trialysis #1 132.8 100.8 20.4 Tube Feeding 300 400 100 Output: Urine 245 350 40 Urethral (Mcintyre) 200 350 40 Urine, Voided 45 Other: # Bowel Movements 0 0 - Medications Active Medications: Active Medications Generic Name Dose Route Start Last Admin Trade Name Freq PRN Reason Stop Dose Admin Acetaminophen 650 mg 07/07/18 20:03 07/10/18 00:00 Tylenol 325mg Tab PO 650 mg Q6H PRN Administration Pain, moderate (4-7) Albuterol/Ipratropium 3 ml 07/09/18 12:00 07/11/18 16:21 Duoneb 3 Mg/0.5 Mg (3 Ml) Ud INH 3 ml RQ4 MANOLO Administration Amiodarone HCl 200 mg 07/11/18 17:15 07/11/18 17:12 Cordarone PO 200 mg DAILY MANOLO Administration Aspirin 81 mg 07/12/18 10:00 Ecotrin PO DAILY MANOLO Ergocalciferol 1 cap 07/11/18 12:45 07/11/18 14:50 Drisdol 50,000 Intl Units Cap PO 1 cap Q7D MANOLO Administration Furosemide 40 mg 07/11/18 18:00 07/11/18 17:04 Lasix IVP 40 mg BID MANOLO Administration Hydrocortisone Sodium Succinate 50 mg 07/10/18 10:00 07/11/18 10:35 Solu-Cortef IV 50 mg Q12 MANOLO Administration Norepinephrine Bitartrate 8 mg 258 mls @ 7.74 mls/hr 07/08/18 23:45 07/10/18 06:00 / Dextrose IV 0 mcg/min .Q24H PRN 0 mls/hr TITRATE PER MD ORDER Titration Protocol 4 MCG/MIN Meropenem 500 mg/ Sodium 100 mls @ 100 mls/hr 07/10/18 00:30 07/11/18 12:48 Chloride IVPB 100 mls/hr Q12H MANOLO Administration Protocol Vasopressin 40 units/ Dextrose 40 mls @ 2.4 mls/hr 07/10/18 09:30 07/11/18 10:00 IV 0 units/min .[id number] MANOLO 0 mls/hr Titration Protocol 0.04 UNITS/MIN Sodium Chloride 1,000 mls @ 40 mls/hr 07/10/18 09:45 07/11/18 14:52 Sodium Chloride 0.9% IV Not Given .Q24H MANOLO Fentanyl Citrate 2,500 mcg/ 250 mls @ 11.2 mls/hr 07/10/18 19:00 07/11/18 07:30 Sodium Chloride IV 0 mcg/kg/hr .[id number] MANOLO 0 mls/hr Titration Protocol 2 MCG/KG/HR Heparin Sodium/Sodium Chloride 25,000 units in 250 mls @ 10.207 mls/hr 07/11/18 09:20 07/11/18 09:52 Heparin 40800 Units/250ml 1/2 Normal Saline IV 18 units/kg/hr .Q24H PRN 10.207 mls/hr PROTOCOL Administration Protocol 18 UNITS/KG/HR Phenylephrine HCl 30 mg/ 253 mls @ 15.18 mls/hr 07/11/18 13:07 07/11/18 14:50 Sodium Chloride IV 45 mcg/min .[id number] PRN 22.77 mls/hr TITRATE PER MD ORDER Administration Protocol 30 MCG/MIN Insulin Aspart 0 unit 07/11/18 08:28 07/11/18 12:49 Novolog SC 8 u Q6 MANOLO Administration Protocol Lactobacillus Acidophilus 1 cap 07/08/18 20:00 07/11/18 10:33 Bacid Acidophilus PO 1 cap Q12H MANOLO Administration Methimazole 10 mg 07/11/18 10:00 07/11/18 17:15 Tapazole PO 10 mg TID MANOLO Administration Ondansetron HCl 4 mg 07/07/18 18:00 07/08/18 13:06 Zofran Inj IVP 4 mg Q6H PRN Administration Nausea/Vomiting Pantoprazole Sodium 40 mg 07/11/18 10:00 07/11/18 17:13 Protonix Susp PO 40 mg BID MANOLO Administration - Patient Studies Lab Studies: Microbiology Studies 07/09/18 17:17 Blood Culture - Preliminary Blood NO GROWTH AFTER 48 HOURS 07/09/18 17:16 Blood Culture - Preliminary Blood NO GROWTH AFTER 48 HOURS 07/07/18 16:47 Blood Culture - Preliminary Blood-Venous NO GROWTH AFTER 4 DAYS 07/07/18 16:47 Blood Culture - Preliminary Blood-Venous NO GROWTH AFTER 4 DAYS 07/10/18 11:01 Mycobacterial Culture - Preliminary Other: Please Indicate 07/09/18 10:32 Gram Stain - Final Trachasp Sputum Culture - Final Yeast Species Lab Studies 07/11/18 07/11/18 07/11/18 Range/Units 12:33 09:40 06:01 WBC (4.8-10.8) K/uL RBC (3.80-5.20) Mil/uL Hgb (11.0-16.0) g/dL Hct (34.0-47.0) % MCV (81.0-99.0) fL MCH (27.0-31.0) pg MCHC (33.0-37.0) g/dL RDW (11.5-14.5) % Plt Count (130-400) K/uL MPV (7.2-11.7) fL Neut % (Auto) (50.0-75.0) % Lymph % (Auto) (20.0-40.0) % [place] % (Auto) (0.0-10.0) % Eos % (Auto) (0.0-4.0) % Baso % (Auto) (0.0-2.0) % Neut # (Auto) (1.8-7.0) K/uL Lymph # (Auto) (1.0-4.3) K/uL [place] # (Auto) (0.0-0.8) K/uL Eos # (Auto) (0.0-0.7) K/uL Baso # (Auto) (0.0-0.2) K/uL Retic Count (0.5-1.5) % PT 36.4 H (9.7-12.2) SECONDS INR 3.3 APTT 34 (21-34) SECONDS Puncture Site pCO2 (35-45) mm/Hg pO2 (80-100) mm/Hg HCO3 (21-28) mmol/L ABG pH (7.35-7.45) ABG Total CO2 (22-28) mmol/L ABG O2 Saturation (95-98) % ABG Base Excess (-2.0-3.0) mmol/L ABG Hemoglobin (11.7-17.4) g/dL ABG Carboxyhemoglobin (0.5-1.5) % POC ABG HHb (Measured) (0.0-5.0) % ABG Methemoglobin (0.0-3.0) % Kevon Test A-a O2 Difference mm/Hg Respiratory Index Hgb O2 Saturation (95.0-98.0) % Vent Mode Mechanical Rate FiO2 % Tidal Volume PEEP Sodium (132-148) mmol/L Potassium (3.6-5.2) mmol/L Chloride (98-107) mmol/L Carbon Dioxide (22-30) mmol/L Anion Gap (10-20) BUN (7-17) mg/dL Creatinine (0.7-1.2) mg/dL Est GFR ( Amer) Est GFR (Non-Af Amer) POC Glucose (mg/dL) 312 H 412 H* (65-110) mg/dL Random Glucose (65-105) mg/dL Calcium (8.6-10.4) mg/dl Phosphorus (2.5-4.5) mg/dL Magnesium (1.6-2.3) mg/dL Total Bilirubin (0.2-1.3) mg/dL AST (14-36) U/L ALT (9-52) U/L Alkaline Phosphatase (38-126) U/L Total Creatine Kinase (30-135) U/L CK-MB (Mass) (0.0-3.38) ng/mL Troponin I (0.00-0.120) ng/mL Total Protein (6.3-8.3) g/dL Albumin (3.5-5.0) g/dL Globulin (2.2-3.9) gm/dL Albumin/Globulin Ratio (1.0-2.1) 25-OH Vitamin D Total (30.0-100.0) NG/ML Free T4 (0.78-2.19) ng/dL TSH 3rd Generation (0.46-4.68) mIU/L PTH Intact Whole Molec (14-64) pg/mL Random Vancomycin ug/mL LIA Screen (Negative) LIA Titer LIA Titer 2 LIA Pattern LIA Pattern 2 Double Strand DNA Ab IU/mL 07/11/18 07/11/18 07/11/18 Range/Units 05:49 05:49 05:49 WBC (4.8-10.8) K/uL RBC (3.80-5.20) Mil/uL Hgb (11.0-16.0) g/dL Hct (34.0-47.0) % MCV (81.0-99.0) fL MCH (27.0-31.0) pg MCHC (33.0-37.0) g/dL RDW (11.5-14.5) % Plt Count (130-400) K/uL MPV (7.2-11.7) fL Neut % (Auto) (50.0-75.0) % Lymph % (Auto) (20.0-40.0) % [place] % (Auto) (0.0-10.0) % Eos % (Auto) (0.0-4.0) % Baso % (Auto) (0.0-2.0) % Neut # (Auto) (1.8-7.0) K/uL Lymph # (Auto) (1.0-4.3) K/uL [place] # (Auto) (0.0-0.8) K/uL Eos # (Auto) (0.0-0.7) K/uL Baso # (Auto) (0.0-0.2) K/uL Retic Count (0.5-1.5) % PT (9.7-12.2) SECONDS INR APTT (21-34) SECONDS Puncture Site pCO2 (35-45) mm/Hg pO2 (80-100) mm/Hg HCO3 (21-28) mmol/L ABG pH (7.35-7.45) ABG Total CO2 (22-28) mmol/L ABG O2 Saturation (95-98) % ABG Base Excess (-2.0-3.0) mmol/L ABG Hemoglobin (11.7-17.4) g/dL ABG Carboxyhemoglobin (0.5-1.5) % POC ABG HHb (Measured) (0.0-5.0) % ABG Methemoglobin (0.0-3.0) % Kevon Test A-a O2 Difference mm/Hg Respiratory Index Hgb O2 Saturation (95.0-98.0) % Vent Mode Mechanical Rate FiO2 % Tidal Volume PEEP Sodium 141 (132-148) mmol/L Potassium 3.0 L (3.6-5.2) mmol/L Chloride 104 (98-107) mmol/L Carbon Dioxide 22 (22-30) mmol/L Anion Gap 18 (10-20) BUN 43 H (7-17) mg/dL Creatinine 2.3 H (0.7-1.2) mg/dL Est GFR ( Amer) 27 Est GFR (Non-Af Amer) 22 POC Glucose (mg/dL) (65-110) mg/dL Random Glucose 364 H (65-105) mg/dL Calcium 6.4 L (8.6-10.4) mg/dl Phosphorus 2.7 (2.5-4.5) mg/dL Magnesium 2.2 (1.6-2.3) mg/dL Total Bilirubin 0.6 (0.2-1.3) mg/dL AST 548 H (14-36) U/L ALT 427 H (9-52) U/L Alkaline Phosphatase 96 (38-126) U/L Total Creatine Kinase (30-135) U/L CK-MB (Mass) (0.0-3.38) ng/mL Troponin I (0.00-0.120) ng/mL Total Protein 4.5 L (6.3-8.3) g/dL Albumin 2.2 L (3.5-5.0) g/dL Globulin 2.3 (2.2-3.9) gm/dL Albumin/Globulin Ratio 0.9 L (1.0-2.1) 25-OH Vitamin D Total (30.0-100.0) NG/ML Free T4 3.56 H (0.78-2.19) ng/dL TSH 3rd Generation < 0.02 L (0.46-4.68) mIU/L PTH Intact Whole Molec (14-64) pg/mL Random Vancomycin < 5.0 ug/mL LIA Screen (Negative) LIA Titer LIA Titer 2 LIA Pattern LIA Pattern 2 Double Strand DNA Ab IU/mL 07/11/18 07/11/18 07/11/18 Range/Units 05:49 05:48 05:20 WBC 11.1 H (4.8-10.8) K/uL RBC 2.92 L (3.80-5.20) Mil/uL Hgb 8.8 L (11.0-16.0) g/dL Hct 25.6 L (34.0-47.0) % MCV 87.8 (81.0-99.0) fL MCH 30.3 (27.0-31.0) pg MCHC 34.5 (33.0-37.0) g/dL RDW 15.9 H (11.5-14.5) % Plt Count 217 (130-400) K/uL MPV 8.7 (7.2-11.7) fL Neut % (Auto) 78.8 H (50.0-75.0) % Lymph % (Auto) 14.5 L (20.0-40.0) % [place] % (Auto) 6.3 (0.0-10.0) % Eos % (Auto) 0.1 (0.0-4.0) % Baso % (Auto) 0.3 (0.0-2.0) % Neut # (Auto) 8.7 H (1.8-7.0) K/uL Lymph # (Auto) 1.6 (1.0-4.3) K/uL [place] # (Auto) 0.7 (0.0-0.8) K/uL Eos # (Auto) 0.0 (0.0-0.7) K/uL Baso # (Auto) 0.0 (0.0-0.2) K/uL Retic Count 1.8 H (0.5-1.5) % PT (9.7-12.2) SECONDS INR APTT (21-34) SECONDS Puncture Site Rr pCO2 22 L (35-45) mm/Hg pO2 137 H (80-100) mm/Hg HCO3 23.7 (21-28) mmol/L ABG pH 7.56 H (7.35-7.45) ABG Total CO2 20.4 L (22-28) mmol/L ABG O2 Saturation 99.2 H (95-98) % ABG Base Excess -1.6 (-2.0-3.0) mmol/L ABG Hemoglobin 9.0 L (11.7-17.4) g/dL ABG Carboxyhemoglobin 1.2 (0.5-1.5) % POC ABG HHb (Measured) 0.8 (0.0-5.0) % ABG Methemoglobin 0.8 (0.0-3.0) % Kevon Test Na A-a O2 Difference 335.0 mm/Hg Respiratory Index 2.4 Hgb O2 Saturation 97.2 (95.0-98.0) % Vent Mode Prvc Mechanical Rate 20 FiO2 70.0 % Tidal Volume 450 PEEP 5 Sodium (132-148) mmol/L Potassium (3.6-5.2) mmol/L Chloride (98-107) mmol/L Carbon Dioxide (22-30) mmol/L Anion Gap (10-20) BUN (7-17) mg/dL Creatinine (0.7-1.2) mg/dL Est GFR ( Amer) Est GFR (Non-Af Amer) POC Glucose (mg/dL) (65-110) mg/dL Random Glucose (65-105) mg/dL Calcium (8.6-10.4) mg/dl Phosphorus (2.5-4.5) mg/dL Magnesium (1.6-2.3) mg/dL Total Bilirubin (0.2-1.3) mg/dL AST (14-36) U/L ALT (9-52) U/L Alkaline Phosphatase (38-126) U/L Total Creatine Kinase (30-135) U/L CK-MB (Mass) (0.0-3.38) ng/mL Troponin I (0.00-0.120) ng/mL Total Protein (6.3-8.3) g/dL Albumin (3.5-5.0) g/dL Globulin (2.2-3.9) gm/dL Albumin/Globulin Ratio (1.0-2.1) 25-OH Vitamin D Total < 12.8 L (30.0-100.0) NG/ML Free T4 (0.78-2.19) ng/dL TSH 3rd Generation (0.46-4.68) mIU/L PTH Intact Whole Molec (14-64) pg/mL Random Vancomycin ug/mL LIA Screen (Negative) LIA Titer LIA Titer 2 LIA Pattern LIA Pattern 2 Double Strand DNA Ab IU/mL 07/10/18 07/10/18 07/10/18 Range/Units 23:43 20:53 20:53 WBC 12.4 H D (4.8-10.8) K/uL RBC 2.92 L (3.80-5.20) Mil/uL Hgb 8.7 L (11.0-16.0) g/dL Hct 25.7 L (34.0-47.0) % MCV 87.8 (81.0-99.0) fL MCH 29.6 (27.0-31.0) pg MCHC 33.8 (33.0-37.0) g/dL RDW 15.6 H (11.5-14.5) % Plt Count 222 (130-400) K/uL MPV 8.2 (7.2-11.7) fL Neut % (Auto) 84.2 H (50.0-75.0) % Lymph % (Auto) 10.8 L (20.0-40.0) % [place] % (Auto) 4.5 (0.0-10.0) % Eos % (Auto) 0.1 (0.0-4.0) % Baso % (Auto) 0.4 (0.0-2.0) % Neut # (Auto) 10.4 H (1.8-7.0) K/uL Lymph # (Auto) 1.3 (1.0-4.3) K/uL [place] # (Auto) 0.6 (0.0-0.8) K/uL Eos # (Auto) 0.0 (0.0-0.7) K/uL Baso # (Auto) 0.0 (0.0-0.2) K/uL Retic Count (0.5-1.5) % PT (9.7-12.2) SECONDS INR APTT (21-34) SECONDS Puncture Site pCO2 (35-45) mm/Hg pO2 (80-100) mm/Hg HCO3 (21-28) mmol/L ABG pH (7.35-7.45) ABG Total CO2 (22-28) mmol/L ABG O2 Saturation (95-98) % ABG Base Excess (-2.0-3.0) mmol/L ABG Hemoglobin (11.7-17.4) g/dL ABG Carboxyhemoglobin (0.5-1.5) % POC ABG HHb (Measured) (0.0-5.0) % ABG Methemoglobin (0.0-3.0) % Kevon Test A-a O2 Difference mm/Hg Respiratory Index Hgb O2 Saturation (95.0-98.0) % Vent Mode Mechanical Rate FiO2 % Tidal Volume PEEP Sodium 141 (132-148) mmol/L Potassium 3.5 L (3.6-5.2) mmol/L Chloride 101 (98-107) mmol/L Carbon Dioxide 20 L (22-30) mmol/L Anion Gap 24 H (10-20) BUN 42 H (7-17) mg/dL Creatinine 2.2 H (0.7-1.2) mg/dL Est GFR ( Amer) 28 Est GFR (Non-Af Amer) 23 POC Glucose (mg/dL) 307 H (65-110) mg/dL Random Glucose 302 H (65-105) mg/dL Calcium 6.3 L (8.6-10.4) mg/dl Phosphorus 3.4 (2.5-4.5) mg/dL Magnesium 2.4 H (1.6-2.3) mg/dL Total Bilirubin 0.8 (0.2-1.3) mg/dL AST 536 H D (14-36) U/L ALT 366 H D (9-52) U/L Alkaline Phosphatase 82 (38-126) U/L Total Creatine Kinase 314 H (30-135) U/L CK-MB (Mass) 2.98 (0.0-3.38) ng/mL Troponin I 10.4000 H* (0.00-0.120) ng/mL Total Protein 4.4 L (6.3-8.3) g/dL Albumin 2.1 L (3.5-5.0) g/dL Globulin 2.3 (2.2-3.9) gm/dL Albumin/Globulin Ratio 0.9 L (1.0-2.1) 25-OH Vitamin D Total (30.0-100.0) NG/ML Free T4 (0.78-2.19) ng/dL TSH 3rd Generation (0.46-4.68) mIU/L PTH Intact Whole Molec (14-64) pg/mL Random Vancomycin ug/mL LIA Screen (Negative) LIA Titer LIA Titer 2 LIA Pattern LIA Pattern 2 Double Strand DNA Ab IU/mL 07/10/18 07/10/18 07/10/18 Range/Units 17:45 13:07 11:13 WBC (4.8-10.8) K/uL RBC (3.80-5.20) Mil/uL Hgb (11.0-16.0) g/dL Hct (34.0-47.0) % MCV (81.0-99.0) fL MCH (27.0-31.0) pg MCHC (33.0-37.0) g/dL RDW (11.5-14.5) % Plt Count (130-400) K/uL MPV (7.2-11.7) fL Neut % (Auto) (50.0-75.0) % Lymph % (Auto) (20.0-40.0) % [place] % (Auto) (0.0-10.0) % Eos % (Auto) (0.0-4.0) % Baso % (Auto) (0.0-2.0) % Neut # (Auto) (1.8-7.0) K/uL Lymph # (Auto) (1.0-4.3) K/uL [place] # (Auto) (0.0-0.8) K/uL Eos # (Auto) (0.0-0.7) K/uL Baso # (Auto) (0.0-0.2) K/uL Retic Count (0.5-1.5) % PT (9.7-12.2) SECONDS INR APTT (21-34) SECONDS Puncture Site pCO2 (35-45) mm/Hg pO2 (80-100) mm/Hg HCO3 (21-28) mmol/L ABG pH (7.35-7.45) ABG Total CO2 (22-28) mmol/L ABG O2 Saturation (95-98) % ABG Base Excess (-2.0-3.0) mmol/L ABG Hemoglobin (11.7-17.4) g/dL ABG Carboxyhemoglobin (0.5-1.5) % POC ABG HHb (Measured) (0.0-5.0) % ABG Methemoglobin (0.0-3.0) % Kevon Test A-a O2 Difference mm/Hg Respiratory Index Hgb O2 Saturation (95.0-98.0) % Vent Mode Mechanical Rate FiO2 % Tidal Volume PEEP Sodium (132-148) mmol/L Potassium (3.6-5.2) mmol/L Chloride (98-107) mmol/L Carbon Dioxide (22-30) mmol/L Anion Gap (10-20) BUN (7-17) mg/dL Creatinine (0.7-1.2) mg/dL Est GFR ( Amer) Est GFR (Non-Af Amer) POC Glucose (mg/dL) 290 H 246 H (65-110) mg/dL Random Glucose (65-105) mg/dL Calcium (8.6-10.4) mg/dl Phosphorus (2.5-4.5) mg/dL Magnesium (1.6-2.3) mg/dL Total Bilirubin (0.2-1.3) mg/dL AST (14-36) U/L ALT (9-52) U/L Alkaline Phosphatase (38-126) U/L Total Creatine Kinase (30-135) U/L CK-MB (Mass) (0.0-3.38) ng/mL Troponin I (0.00-0.120) ng/mL Total Protein (6.3-8.3) g/dL Albumin (3.5-5.0) g/dL Globulin (2.2-3.9) gm/dL Albumin/Globulin Ratio (1.0-2.1) 25-OH Vitamin D Total (30.0-100.0) NG/ML Free T4 (0.78-2.19) ng/dL TSH 3rd Generation (0.46-4.68) mIU/L PTH Intact Whole Molec 708 H (14-64) pg/mL Random Vancomycin ug/mL LIA Screen (Negative) LIA Titer LIA Titer 2 LIA Pattern LIA Pattern 2 Double Strand DNA Ab IU/mL 07/08/18 Range/Units 23:06 WBC (4.8-10.8) K/uL RBC (3.80-5.20) Mil/uL Hgb (11.0-16.0) g/dL Hct (34.0-47.0) % MCV (81.0-99.0) fL MCH (27.0-31.0) pg MCHC (33.0-37.0) g/dL RDW (11.5-14.5) % Plt Count (130-400) K/uL MPV (7.2-11.7) fL Neut % (Auto) (50.0-75.0) % Lymph % (Auto) (20.0-40.0) % [place] % (Auto) (0.0-10.0) % Eos % (Auto) (0.0-4.0) % Baso % (Auto) (0.0-2.0) % Neut # (Auto) (1.8-7.0) K/uL Lymph # (Auto) (1.0-4.3) K/uL [place] # (Auto) (0.0-0.8) K/uL Eos # (Auto) (0.0-0.7) K/uL Baso # (Auto) (0.0-0.2) K/uL Retic Count (0.5-1.5) % PT (9.7-12.2) SECONDS INR APTT (21-34) SECONDS Puncture Site pCO2 (35-45) mm/Hg pO2 (80-100) mm/Hg HCO3 (21-28) mmol/L ABG pH (7.35-7.45) ABG Total CO2 (22-28) mmol/L ABG O2 Saturation (95-98) % ABG Base Excess (-2.0-3.0) mmol/L ABG Hemoglobin (11.7-17.4) g/dL ABG Carboxyhemoglobin (0.5-1.5) % POC ABG HHb (Measured) (0.0-5.0) % ABG Methemoglobin (0.0-3.0) % Kevon Test A-a O2 Difference mm/Hg Respiratory Index Hgb O2 Saturation (95.0-98.0) % Vent Mode Mechanical Rate FiO2 % Tidal Volume PEEP Sodium (132-148) mmol/L Potassium (3.6-5.2) mmol/L Chloride (98-107) mmol/L Carbon Dioxide (22-30) mmol/L Anion Gap (10-20) BUN (7-17) mg/dL Creatinine (0.7-1.2) mg/dL Est GFR ( Amer) Est GFR (Non-Af Amer) POC Glucose (mg/dL) (65-110) mg/dL Random Glucose (65-105) mg/dL Calcium (8.6-10.4) mg/dl Phosphorus (2.5-4.5) mg/dL Magnesium (1.6-2.3) mg/dL Total Bilirubin (0.2-1.3) mg/dL AST (14-36) U/L ALT (9-52) U/L Alkaline Phosphatase (38-126) U/L Total Creatine Kinase (30-135) U/L CK-MB (Mass) (0.0-3.38) ng/mL Troponin I (0.00-0.120) ng/mL Total Protein (6.3-8.3) g/dL Albumin (3.5-5.0) g/dL Globulin (2.2-3.9) gm/dL Albumin/Globulin Ratio (1.0-2.1) 25-OH Vitamin D Total (30.0-100.0) NG/ML Free T4 (0.78-2.19) ng/dL TSH 3rd Generation (0.46-4.68) mIU/L PTH Intact Whole Molec (14-64) pg/mL Random Vancomycin ug/mL LIA Screen Negative (Negative) LIA Titer TEST NOT PERFORMED LIA Titer 2 TEST NOT PERFORMED LIA Pattern TEST NOT PERFORMED LIA Pattern 2 TEST NOT PERFORMED Double Strand DNA Ab <1 IU/mL Laboratory Results - last 24 hr 07/08/18 07/10/18 07/10/18 23:06 11:13 13:07 WBC RBC Hgb Hct MCV MCH MCHC RDW Plt Count MPV Neut % (Auto) Lymph % (Auto) [place] % (Auto) Eos % (Auto) Baso % (Auto) Neut # (Auto) Lymph # (Auto) [place] # (Auto) Eos # (Auto) Baso # (Auto) Retic Count PT INR APTT Puncture Site pCO2 pO2 HCO3 ABG pH ABG Total CO2 ABG O2 Saturation ABG Base Excess ABG Hemoglobin ABG Carboxyhemoglobin POC ABG HHb (Measured) ABG Methemoglobin [place] Test A-a O2 Difference Respiratory Index Hgb O2 Saturation Vent Mode Mechanical Rate FiO2 Tidal Volume PEEP Sodium Potassium Chloride Carbon Dioxide Anion Gap BUN Creatinine Est GFR ( Amer) Est GFR (Non-Af Amer) POC Glucose (mg/dL) 246 H Random Glucose Calcium Phosphorus Magnesium Total Bilirubin AST ALT Alkaline Phosphatase Total Creatine Kinase CK-MB (Mass) Troponin I Total Protein Albumin Globulin Albumin/Globulin Ratio 25-OH Vitamin D Total Free T4 TSH 3rd Generation PTH Intact Whole Molec 708 H Random Vancomycin LIA Screen Negative LIA Titer TEST NOT PERFORMED LIA Titer 2 TEST NOT PERFORMED LIA Pattern TEST NOT PERFORMED LIA Pattern 2 TEST NOT PERFORMED Double Strand DNA Ab <1 07/10/18 07/10/18 07/10/18 17:45 20:53 20:53 WBC 12.4 H D RBC 2.92 L Hgb 8.7 L Hct 25.7 L MCV 87.8 MCH 29.6 MCHC 33.8 RDW 15.6 H Plt Count 222 MPV 8.2 Neut % (Auto) 84.2 H Lymph % (Auto) 10.8 L [place] % (Auto) 4.5 Eos % (Auto) 0.1 Baso % (Auto) 0.4 Neut # (Auto) 10.4 H Lymph # (Auto) 1.3 [place] # (Auto) 0.6 Eos # (Auto) 0.0 Baso # (Auto) 0.0 Retic Count PT INR APTT Puncture Site pCO2 pO2 HCO3 ABG pH ABG Total CO2 ABG O2 Saturation ABG Base Excess ABG Hemoglobin ABG Carboxyhemoglobin POC ABG HHb (Measured) ABG Methemoglobin [place] Test A-a O2 Difference Respiratory Index Hgb O2 Saturation Vent Mode Mechanical Rate FiO2 Tidal Volume PEEP Sodium 141 Potassium 3.5 L Chloride 101 Carbon Dioxide 20 L Anion Gap 24 H BUN 42 H Creatinine 2.2 H Est GFR ( Amer) 28 Est GFR (Non-Af Amer) 23 POC Glucose (mg/dL) 290 H Random Glucose 302 H Calcium 6.3 L Phosphorus 3.4 Magnesium 2.4 H Total Bilirubin 0.8 AST 536 H D ALT 366 H D Alkaline Phosphatase 82 Total Creatine Kinase 314 H CK-MB (Mass) 2.98 Troponin I 10.4000 H* Total Protein 4.4 L Albumin 2.1 L Globulin 2.3 Albumin/Globulin Ratio 0.9 L 25-OH Vitamin D Total Free T4 TSH 3rd Generation PTH Intact Whole Molec Random Vancomycin LIA Screen LIA Titer LIA Titer 2 LIA Pattern LIA Pattern 2 Double Strand DNA Ab 07/10/18 07/11/18 07/11/18 23:43 05:20 05:48 WBC 11.1 H RBC 2.92 L Hgb 8.8 L Hct 25.6 L MCV 87.8 MCH 30.3 MCHC 34.5 RDW 15.9 H Plt Count 217 MPV 8.7 Neut % (Auto) 78.8 H Lymph % (Auto) 14.5 L [place] % (Auto) 6.3 Eos % (Auto) 0.1 Baso % (Auto) 0.3 Neut # (Auto) 8.7 H Lymph # (Auto) 1.6 [place] # (Auto) 0.7 Eos # (Auto) 0.0 Baso # (Auto) 0.0 Retic Count 1.8 H PT INR APTT Puncture Site Rr pCO2 22 L pO2 137 H HCO3 23.7 ABG pH 7.56 H ABG Total CO2 20.4 L ABG O2 Saturation 99.2 H ABG Base Excess -1.6 ABG Hemoglobin 9.0 L ABG Carboxyhemoglobin 1.2 POC ABG HHb (Measured) 0.8 ABG Methemoglobin 0.8 [place] Test Na A-a O2 Difference 335.0 Respiratory Index 2.4 Hgb O2 Saturation 97.2 Vent Mode Prvc Mechanical Rate 20 FiO2 70.0 Tidal Volume 450 PEEP 5 Sodium Potassium Chloride Carbon Dioxide Anion Gap BUN Creatinine Est GFR ( Amer) Est GFR (Non-Af Amer) POC Glucose (mg/dL) 307 H Random Glucose Calcium Phosphorus Magnesium Total Bilirubin AST ALT Alkaline Phosphatase Total Creatine Kinase CK-MB (Mass) Troponin I Total Protein Albumin Globulin Albumin/Globulin Ratio 25-OH Vitamin D Total Free T4 TSH 3rd Generation PTH Intact Whole Molec Random Vancomycin LIA Screen LIA Titer LIA Titer 2 LIA Pattern LIA Pattern 2 Double Strand DNA Ab 07/11/18 07/11/18 07/11/18 05:49 05:49 05:49 WBC RBC Hgb Hct MCV MCH MCHC RDW Plt Count MPV Neut % (Auto) Lymph % (Auto) [place] % (Auto) Eos % (Auto) Baso % (Auto) Neut # (Auto) Lymph # (Auto) [place] # (Auto) Eos # (Auto) Baso # (Auto) Retic Count PT INR APTT Puncture Site pCO2 pO2 HCO3 ABG pH ABG Total CO2 ABG O2 Saturation ABG Base Excess ABG Hemoglobin ABG Carboxyhemoglobin POC ABG HHb (Measured) ABG Methemoglobin [place] Test A-a O2 Difference Respiratory Index Hgb O2 Saturation Vent Mode Mechanical Rate FiO2 Tidal Volume PEEP Sodium 141 Potassium 3.0 L Chloride 104 Carbon Dioxide 22 Anion Gap 18 BUN 43 H Creatinine 2.3 H Est GFR ( Amer) 27 Est GFR (Non-Af Amer) 22 POC Glucose (mg/dL) Random Glucose 364 H Calcium 6.4 L Phosphorus 2.7 Magnesium 2.2 Total Bilirubin 0.6 AST 548 H ALT 427 H Alkaline Phosphatase 96 Total Creatine Kinase CK-MB (Mass) Troponin I Total Protein 4.5 L Albumin 2.2 L Globulin 2.3 Albumin/Globulin Ratio 0.9 L 25-OH Vitamin D Total < 12.8 L Free T4 TSH 3rd Generation < 0.02 L PTH Intact Whole Molec Random Vancomycin < 5.0 LIA Screen LIA Titer LIA Titer 2 LIA Pattern LIA Pattern 2 Double Strand DNA Ab 07/11/18 07/11/18 07/11/18 05:49 06:01 09:40 WBC RBC Hgb Hct MCV MCH MCHC RDW Plt Count MPV Neut % (Auto) Lymph % (Auto) [place] % (Auto) Eos % (Auto) Baso % (Auto) Neut # (Auto) Lymph # (Auto) [place] # (Auto) Eos # (Auto) Baso # (Auto) Retic Count PT 36.4 H INR 3.3 APTT 34 Puncture Site pCO2 pO2 HCO3 ABG pH ABG Total CO2 ABG O2 Saturation ABG Base Excess ABG Hemoglobin ABG Carboxyhemoglobin POC ABG HHb (Measured) ABG Methemoglobin Kevon Test A-a O2 Difference Respiratory Index Hgb O2 Saturation Vent Mode Mechanical Rate FiO2 Tidal Volume PEEP Sodium Potassium Chloride Carbon Dioxide Anion Gap BUN Creatinine Est GFR ( Amer) Est GFR (Non-Af Amer) POC Glucose (mg/dL) 412 H* Random Glucose Calcium Phosphorus Magnesium Total Bilirubin AST ALT Alkaline Phosphatase Total Creatine Kinase CK-MB (Mass) Troponin I Total Protein Albumin Globulin Albumin/Globulin Ratio 25-OH Vitamin D Total Free T4 3.56 H TSH 3rd Generation PTH Intact Whole Molec Random Vancomycin LIA Screen LIA Titer LAI Titer 2 LIA Pattern LIA Pattern 2 Double Strand DNA Ab 07/11/18 12:33 WBC RBC Hgb Hct MCV MCH MCHC RDW Plt Count MPV Neut % (Auto) Lymph % (Auto) [place] % (Auto) Eos % (Auto) Baso % (Auto) Neut # (Auto) Lymph # (Auto) [place] # (Auto) Eos # (Auto) Baso # (Auto) Retic Count PT INR APTT Puncture Site pCO2 pO2 HCO3 ABG pH ABG Total CO2 ABG O2 Saturation ABG Base Excess ABG Hemoglobin ABG Carboxyhemoglobin POC ABG HHb (Measured) ABG Methemoglobin Kevon Test A-a O2 Difference Respiratory Index Hgb O2 Saturation Vent Mode Mechanical Rate FiO2 Tidal Volume PEEP Sodium Potassium Chloride Carbon Dioxide Anion Gap BUN Creatinine Est GFR ( Amer) Est GFR (Non-Af Amer) POC Glucose (mg/dL) 312 H Random Glucose Calcium Phosphorus Magnesium Total Bilirubin AST ALT Alkaline Phosphatase Total Creatine Kinase CK-MB (Mass) Troponin I Total Protein Albumin Globulin Albumin/Globulin Ratio 25-OH Vitamin D Total Free T4 TSH 3rd Generation PTH Intact Whole Molec Random Vancomycin LIA Screen LIA Titer LIA Titer 2 LIA Pattern LIA Pattern 2 Double Strand DNA Ab EKG/Cardiology Studies: Cardiology / EKG Studies 07/11/18 09:16 EKG [ELECTROCARDIOGRAM] Stat Comment: Mode Of Transportation: Reason For Exam: concern for M.I. Review of Systems - Review of Systems Systems not reviewed;Unavailable: Intubated Assessment/Plan (1) Aspiration pneumonia Current Visit: Yes Status: Acute Attending/Attestation - Attestation I have personally seen and examined this patient.: Yes I have fully participated in the care of the patient.: Yes I have reviewed all pertinent clinical information: Yes Notes (Text): 07/11/18 17:30 I have seen and examined the patient. Medical records, lab studies, and imaging were reviewed by me and a management plan was formulated on multidisciplinary rounds with resident Dr. Hinkle. I agree with their documented assessment and plan. Patient is having improvement in urine output, acute on chronic CKD continue dialysis. Titrated down to one pressor, continue to titrate off. Stopped sedation, once fully awake will start pressure support trial. Started on heparin drip for LV thrombus. Patient will most likely need cardiac cath to explore the possibility of an IA with CAD. Started ASA. Will need alf anticoagulation, but will keep heparin drip for now until more stable. Hyperthyroidism, started on methimazole. Critical Care Time 35 minutes. Multi-disciplinary rounds were performed with house staff, nursing, speech therapy, respiratory therapy, pharmacy and nutrition with integrated input from the primary team/attending and other consulting services. The documented time is cumulative and includes review of patient data/exams/labs/chart review and examination of the patient on rounds and throughout the day; time is exclusive of any procedures or teaching time.
[2018-07-11] MEDS ORDERED: Metoprolol 1 mg/ml Inj IVP ONE (18:09)
[2018-07-11] MEDS ORDERED: Metoprolol 1 mg/ml Inj ONE (18:15)
--- NOTE | 2018-07-11 21:24 | CP.PCM.CON ---
History of Present Illness - History of Present Illness History of Present Illness: Reason For Consultation: LV thrombus HPI: 52 F with hx of DM2, s/p Cardiac arrest ECHO revealed LV thrombus with Cardiomyopathy PMHx- as noted above PSHx- denies Fam Hx- Reviewed and patient denies at this time Medications- Bactrim Social Hx- Denies smoking ( is a smoker), illicit drug use or alcohol intake Allergies-NKDA Physical Exam Intubated - Constitutional Appears: Non-toxic, No Acute Distress Additional comments: ill-appearing - Head Exam Head Exam: ATRAUMATIC, NORMAL INSPECTION, NORMOCEPHALIC Additional comments: thinning hair - Eye Exam Eye Exam: EOMI, Normal appearance, PERRL Pupil Exam: NORMAL ACCOMODATION - ENT Exam ENT Exam: Mucous Membranes Moist - Neck Exam Neck exam: Positive for: Normal Inspection - Respiratory Exam Respiratory Exam: Decreased Breath Sounds, Rhonchi. absent: Clear to Auscultation Bilateral, Wheezes - Cardiovascular Exam Cardiovascular Exam: +S1, +S2 - GI/Abdominal Exam GI & Abdominal Exam: Normal Bowel Sounds, Soft. absent: Distended, Tenderness - Skin Skin Exam: Dry, Warm Additional comments: decreased skin turgor Assessment & Plan (1) UTI (urinary tract infection)/Uro sepsis Assessment and Plan: On antibitics Status: Acute (2) Dyspnea/Resp Failure Assessment and Plan: Intubated (3) NEHA (acute kidney injury) Assessment and Plan: Likely secondary to dehydration from repeated emesis Bactrim also contributory on NS @ 100 mls/hr Status: Acute (4) Diabetes mellitus Assessment and Plan: ISS Low dose Accuchecks ACHS F/U Hgb A1c Status: Chronic (5) Prophylactic measure Assessment and Plan: PPI 40 mg IV SCDs Status: Acute Cardiomyopathy with low EF LV clot IV Heaprin and ASA Cardiac cath once patient extubated Past Patient History - Tetanus Immunizations Tetanus Immunization: Unknown - Past Medical History & Family History Past Family History: Reviewed and not pertinent - Past Social History Smoking Status: Never Smoked Alcohol: None Drugs: Denies Home Situation {Lives}: With Family - CARDIAC Hx Hypercholesterolemia: Yes - PULMONARY Hx Respiratory Disorders: No - NEUROLOGICAL Hx Neurological Disorder: No - HEENT Hx HEENT Problems: No - RENAL Hx Chronic Kidney Disease: No - ENDOCRINE/METABOLIC Hx Endocrine Disorders: Yes Hx Diabetes Mellitus Type 1: Yes - HEMATOLOGICAL/ONCOLOGICAL Hx Blood Disorders: No - INTEGUMENTARY Hx Dermatological Problems: No - MUSCULOSKELETAL/RHEUMATOLOGICAL Hx Musculoskeletal Disorders: No Hx Falls: No - GASTROINTESTINAL Hx Gastrointestinal Disorders: No - GENITOURINARY/GYNECOLOGICAL Hx Genitourinary Disorders: No - PSYCHIATRIC Hx Substance Use: No - SURGICAL HISTORY Other/Comment: removal of ovaries - ANESTHESIA Hx Anesthesia: Yes Hx Anesthesia Reactions: No Hx Malignant Hyperthermia: No Meds Allergies/Adverse Reactions: Allergies Allergy/AdvReac Type Severity Reaction Status Date / Time No Known Allergies Allergy Unverified 07/03/18 23:36 - Medications Medications: Current Medications Acetaminophen (Tylenol 325mg Tab) 650 mg PO Q6H PRN PRN Reason: Pain, moderate (4-7) Last Admin: 07/10/18 00:00 Dose: 650 mg Albuterol/Ipratropium (Duoneb 3 Mg/0.5 Mg (3 Ml) Ud) 3 ml INH RQ4 [facility] Last Admin: 07/11/18 20:05 Dose: 3 ml Amiodarone HCl (Cordarone) 200 mg PO DAILY [facility] Last Admin: 07/11/18 17:12 Dose: 200 mg Aspirin (Ecotrin) 81 mg PO DAILY [facility] Ergocalciferol (Drisdol 50,000 Intl Units Cap) 1 cap PO Q7D [facility] Last Admin: 07/11/18 14:50 Dose: 1 cap Furosemide (Lasix) 40 mg IVP BID [facility] Last Admin: 07/11/18 17:04 Dose: 40 mg Hydrocortisone Sodium Succinate (Solu-Cortef) 50 mg IV Q12 [facility] Last Admin: 07/11/18 10:35 Dose: 50 mg Norepinephrine Bitartrate 8 mg (/ Dextrose) 258 mls @ 7.74 mls/hr IV .Q24H PRN; Protocol PRN Reason: TITRATE PER MD ORDER Last Titration: 07/10/18 06:00 Dose: 0 mcg/min, 0 mls/hr Meropenem 500 mg/ Sodium (Chloride) 100 mls @ 100 mls/hr IVPB Q12H [facility]; Protocol Last Admin: 07/11/18 12:48 Dose: 100 mls/hr Vasopressin 40 units/ Dextrose 40 mls @ 2.4 mls/hr IV .[id number] [facility]; Protocol Last Admin: 07/11/18 19:05 Dose: Not Given Sodium Chloride (Sodium Chloride 0.9%) 1,000 mls @ 40 mls/hr IV .Q24H [facility] Last Admin: 07/11/18 14:52 Dose: Not Given Fentanyl Citrate 2,500 mcg/ (Sodium Chloride) 250 mls @ 11.2 mls/hr IV .[id number] [facility]; Protocol Last Admin: 07/11/18 17:45 Dose: Not Given Heparin Sodium/Sodium Chloride (Heparin 38100 Units/250ml 1/2 Normal Saline) 25,000 units in 250 mls @ 10.207 mls/hr IV .Q24H PRN; Protocol PRN Reason: PROTOCOL Last Titration: 07/11/18 18:30 Dose: 15 units/kg/hr, 8.506 mls/hr Phenylephrine HCl 30 mg/ (Sodium Chloride) 253 mls @ 15.18 mls/hr IV .[id number] PRN; Protocol PRN Reason: TITRATE PER MD ORDER Last Titration: 07/11/18 18:01 Dose: 0 mcg/min, 0 mls/hr Insulin Aspart (Novolog) 0 unit SC Q6 [facility]; Protocol Last Admin: 07/11/18 18:00 Dose: 8 u Lactobacillus Acidophilus (Bacid Acidophilus) 1 cap PO Q12H [facility] Last Admin: 07/11/18 20:30 Dose: 1 cap Methimazole (Tapazole) 10 mg PO TID [facility] Last Admin: 07/11/18 17:15 Dose: 10 mg Ondansetron HCl (Zofran Inj) 4 mg IVP Q6H PRN PRN Reason: Nausea/Vomiting Last Admin: 07/08/18 13:06 Dose: 4 mg Pantoprazole Sodium (Protonix Susp) 40 mg PO BID [facility] Last Admin: 07/11/18 17:13 Dose: 40 mg Results - Vital Signs Recent Vital Signs: Last Vital Signs Temp 98.8 F 07/11/18 16:00 Pulse 95 H 07/11/18 19:00 Resp 18 07/11/18 19:00 BP 132/79 07/11/18 18:43 Pulse Ox 100 07/11/18 19:00 - Labs Result Diagrams: 07/11/18 05:48 07/11/18 05:49 Labs: Laboratory Results - last 24 hr 07/08/18 07/10/18 07/10/18 23:06 13:07 20:53 WBC RBC Hgb Hct MCV MCH MCHC RDW Plt Count MPV Neut % (Auto) Lymph % (Auto) [place] % (Auto) Eos % (Auto) Baso % (Auto) Neut # (Auto) Lymph # (Auto) [place] # (Auto) Eos # (Auto) Baso # (Auto) Retic Count PT INR APTT Puncture Site pCO2 pO2 HCO3 ABG pH ABG Total CO2 ABG O2 Saturation ABG Base Excess ABG Hemoglobin ABG Carboxyhemoglobin POC ABG HHb (Measured) ABG Methemoglobin Kevon Test A-a O2 Difference Respiratory Index Hgb O2 Saturation Vent Mode Mechanical Rate FiO2 Tidal Volume PEEP Sodium 141 Potassium 3.5 L Chloride 101 Carbon Dioxide 20 L Anion Gap 24 H BUN 42 H Creatinine 2.2 H Est GFR ( Amer) 28 Est GFR (Non-Af Amer) 23 POC Glucose (mg/dL) Random Glucose 302 H Calcium 6.3 L Phosphorus 3.4 Magnesium 2.4 H Total Bilirubin 0.8 AST 536 H D ALT 366 H D Alkaline Phosphatase 82 Total Creatine Kinase 314 H CK-MB (Mass) 2.98 Troponin I 10.4000 H* Total Protein 4.4 L Albumin 2.1 L Globulin 2.3 Albumin/Globulin Ratio 0.9 L 25-OH Vitamin D Total Free T4 TSH 3rd Generation PTH Intact Whole Molec 708 H Random Vancomycin LIA Screen Negative LIA Titer TEST NOT PERFORMED LIA Titer 2 TEST NOT PERFORMED LIA Pattern TEST NOT PERFORMED LIA Pattern 2 TEST NOT PERFORMED Double Strand DNA Ab <1 07/10/18 07/11/18 07/11/18 23:43 05:20 05:48 WBC 11.1 H RBC 2.92 L Hgb 8.8 L Hct 25.6 L MCV 87.8 MCH 30.3 MCHC 34.5 RDW 15.9 H Plt Count 217 MPV 8.7 Neut % (Auto) 78.8 H Lymph % (Auto) 14.5 L [place] % (Auto) 6.3 Eos % (Auto) 0.1 Baso % (Auto) 0.3 Neut # (Auto) 8.7 H Lymph # (Auto) 1.6 [place] # (Auto) 0.7 Eos # (Auto) 0.0 Baso # (Auto) 0.0 Retic Count 1.8 H PT INR APTT Puncture Site Rr pCO2 22 L pO2 137 H HCO3 23.7 ABG pH 7.56 H ABG Total CO2 20.4 L ABG O2 Saturation 99.2 H ABG Base Excess -1.6 ABG Hemoglobin 9.0 L ABG Carboxyhemoglobin 1.2 POC ABG HHb (Measured) 0.8 ABG Methemoglobin 0.8 Kevon Test Na A-a O2 Difference 335.0 Respiratory Index 2.4 Hgb O2 Saturation 97.2 Vent Mode Prvc Mechanical Rate 20 FiO2 70.0 Tidal Volume 450 PEEP 5 Sodium Potassium Chloride Carbon Dioxide Anion Gap BUN Creatinine Est GFR ( Amer) Est GFR (Non-Af Amer) POC Glucose (mg/dL) 307 H Random Glucose Calcium Phosphorus Magnesium Total Bilirubin AST ALT Alkaline Phosphatase Total Creatine Kinase CK-MB (Mass) Troponin I Total Protein Albumin Globulin Albumin/Globulin Ratio 25-OH Vitamin D Total Free T4 TSH 3rd Generation PTH Intact Whole Molec Random Vancomycin LIA Screen LIA Titer LIA Titer 2 LIA Pattern LIA Pattern 2 Double Strand DNA Ab 07/11/18 07/11/18 07/11/18 05:49 05:49 05:49 WBC RBC Hgb Hct MCV MCH MCHC RDW Plt Count MPV Neut % (Auto) Lymph % (Auto) [place] % (Auto) Eos % (Auto) Baso % (Auto) Neut # (Auto) Lymph # (Auto) [place] # (Auto) Eos # (Auto) Baso # (Auto) Retic Count PT INR APTT Puncture Site pCO2 pO2 HCO3 ABG pH ABG Total CO2 ABG O2 Saturation ABG Base Excess ABG Hemoglobin ABG Carboxyhemoglobin POC ABG HHb (Measured) ABG Methemoglobin Kevon Test A-a O2 Difference Respiratory Index Hgb O2 Saturation Vent Mode Mechanical Rate FiO2 Tidal Volume PEEP Sodium 141 Potassium 3.0 L Chloride 104 Carbon Dioxide 22 Anion Gap 18 BUN 43 H Creatinine 2.3 H Est GFR ( Amer) 27 Est GFR (Non-Af Amer) 22 POC Glucose (mg/dL) Random Glucose 364 H Calcium 6.4 L Phosphorus 2.7 Magnesium 2.2 Total Bilirubin 0.6 AST 548 H ALT 427 H Alkaline Phosphatase 96 Total Creatine Kinase CK-MB (Mass) Troponin I Total Protein 4.5 L Albumin 2.2 L Globulin 2.3 Albumin/Globulin Ratio 0.9 L 25-OH Vitamin D Total < 12.8 L Free T4 TSH 3rd Generation < 0.02 L PTH Intact Whole Molec Random Vancomycin < 5.0 LIA Screen LIA Titer LIA Titer 2 LIA Pattern LIA Pattern 2 Double Strand DNA Ab 07/11/18 07/11/18 07/11/18 05:49 06:01 09:40 WBC RBC Hgb Hct MCV MCH MCHC RDW Plt Count MPV Neut % (Auto) Lymph % (Auto) [place] % (Auto) Eos % (Auto) Baso % (Auto) Neut # (Auto) Lymph # (Auto) [place] # (Auto) Eos # (Auto) Baso # (Auto) Retic Count PT 36.4 H INR 3.3 APTT 34 Puncture Site pCO2 pO2 HCO3 ABG pH ABG Total CO2 ABG O2 Saturation ABG Base Excess ABG Hemoglobin ABG Carboxyhemoglobin POC ABG HHb (Measured) ABG Methemoglobin Kevon Test A-a O2 Difference Respiratory Index Hgb O2 Saturation Vent Mode Mechanical Rate FiO2 Tidal Volume PEEP Sodium Potassium Chloride Carbon Dioxide Anion Gap BUN Creatinine Est GFR ( Amer) Est GFR (Non-Af Amer) POC Glucose (mg/dL) 412 H* Random Glucose Calcium Phosphorus Magnesium Total Bilirubin AST ALT Alkaline Phosphatase Total Creatine Kinase CK-MB (Mass) Troponin I Total Protein Albumin Globulin Albumin/Globulin Ratio 25-OH Vitamin D Total Free T4 3.56 H TSH 3rd Generation PTH Intact Whole Molec Random Vancomycin LIA Screen LIA Titer LIA Titer 2 LIA Pattern LIA Pattern 2 Double Strand DNA Ab 07/11/18 07/11/18 07/11/18 12:33 16:56 17:57 WBC RBC Hgb Hct MCV MCH MCHC RDW Plt Count MPV Neut % (Auto) Lymph % (Auto) [place] % (Auto) Eos % (Auto) Baso % (Auto) Neut # (Auto) Lymph # (Auto) [place] # (Auto) Eos # (Auto) Baso # (Auto) Retic Count PT INR APTT > 400 H* D Puncture Site pCO2 pO2 HCO3 ABG pH ABG Total CO2 ABG O2 Saturation ABG Base Excess ABG Hemoglobin ABG Carboxyhemoglobin POC ABG HHb (Measured) ABG Methemoglobin Kevon Test A-a O2 Difference Respiratory Index Hgb O2 Saturation Vent Mode Mechanical Rate FiO2 Tidal Volume PEEP Sodium Potassium Chloride Carbon Dioxide Anion Gap BUN Creatinine Est GFR ( Amer) Est GFR (Non-Af Amer) POC Glucose (mg/dL) 312 H 309 H Random Glucose Calcium Phosphorus Magnesium Total Bilirubin AST ALT Alkaline Phosphatase Total Creatine Kinase CK-MB (Mass) Troponin I Total Protein Albumin Globulin Albumin/Globulin Ratio 25-OH Vitamin D Total Free T4 TSH 3rd Generation PTH Intact Whole Molec Random Vancomycin LIA Screen LIA Titer LIA Titer 2 LIA Pattern LIA Pattern 2 Double Strand DNA Ab
[2018-07-12] MEDS: (Novolog) Insulin Aspart, Recombinant 100 u/ml 10 ml vial SC SCH ×4 (00:23→18:13)
[2018-07-12] MEDS: Meropenem 500 MG in Sodium Chloride 0.9% 100 ML IVPB SCH ×2 (00:26→11:31)
[2018-07-12] MEDS: Albuterol-Ipratrop 3 mg / 0.5 (3 ml) UD INH SCH ×6 (03:12→23:49)
[2018-07-12 04:25] LABS: ABG ALLEN TEST POS; ARTERIAL BLOOD GAS HCO3 28.4 mmol/L (21-28); ARTERIAL BLOOD GAS HEMOGLOBIN 11.1 g/dL (11.7-17.4); ARTERIAL BLOOD GAS O2 SAT 98.5 % (95-98); ARTERIAL BLOOD GAS PCO2 43 mm/Hg (35-45); ARTERIAL BLOOD GAS PH 7.44 (7.35-7.45); ARTERIAL BLOOD GAS PO2 111 mm/Hg (80-100); ARTERIAL BLOOD GAS TCO2 30.5 mmol/L (22-28)
--- NOTE | 2018-07-12 07:40 | CARD ---
APPROVED REPORT Date of service: 07/11/2018 EXAM: Two-dimensional and M-mode echocardiogram with Doppler, color Doppler with contrast. Other Information Quality : GoodRhythm : INDICATION Acute PA S/P CODE BLUE 2D DIMENSIONS IVSd0.8 (0.7-1.1cm)LVDd4.4 (3.9-5.9cm) PWd0.6 (0.7-1.1cm)LVDs3.4 (2.5-4.0cm) FS (%) 23.1 %LVEF (%)46.6 (>50%) LVEF (Vázquez's)30 % M-Mode DIMENSIONS RVDd0.91 (2.1-3.2cm)Left Atrium (MM)3.13 (2.5-4.0cm) IVSd0.67 (0.7-1.1cm)Aortic Root3.08 (2.2-3.7cm) LVDd4.56 (4.0-5.6cm)Aortic Cusp Exc.1.77 (1.5-2.0cm) PWd0.57 (0.7-1.1cm)FS (%) 27 % LVDs3.32 (2.0-3.8cm)LVEF (%)42 (>50%) Mitral Valve MV E [place]474.2cm/sMV A Tbryrvez45.4cm/sE/A ratio1.5 IIPM375.47 cm/s TDI Lateral E' Peak V9.06cm/sMedial E' Peak V4.74cm/sE/Lateral E'12.8 E/Medial E'24.5 Tricuspid Valve TR Peak [id number]/sTR Peak [id number] <Conclusion> Suboptimal study Left ventricle: OFF axis views; large apical hypokinesis; large30 x 20mm soft tissue apical sessile mass suggestive of a thrombus; thickness: normal; size: normal; overall ejection fraction: 40%: diastolic filling pressures:elevated Obtain a HUBERT/consider stress cardiomyopathy if coronary disease is excluded Mitral valve: annulus: normal: leaflets: normal: excursion: normal; no significant trans-mitral gradient: moderate incompetence: left atrium: normal Aortic valve: leaflets: normal: excursion: normal; no significant trans-aortic gradient: No significant incompetence: aortic root: normal Right sided Structures: Pulmonary valve: normal; no significant incompetence; Tricuspid valve: normal; mild incompetence: Intra-cardiac hemodynamics: pulmonary systolic pressures: 45mmHg; central venous pressures: normal Trace pericardial effusion; large left pleural effusion
[2018-07-12 07:51] LABS: BASO % 0.5 % (0.0-2.0); EOS % 0.2 % (0.0-4.0); HEMOGLOBIN 8.7 g/dL (11.0-16.0); LYMPH % 13.8 % (20.0-40.0); MEAN CELL VOLUME 89.1 fL (81.0-99.0); MEAN CORPUSCULAR HEMOGLOBIN 30.5 pg (27.0-31.0); MEAN CORPUSCULAR HGB CONC 34.3 g/dL (33.0-37.0); MEAN PLATELET VOLUME 8.4 fL (7.2-11.7); MONO # 0.3 K/uL (0.0-0.8); MONO % 3.6 % (0.0-10.0); NEUT # 5.7 K/uL (1.8-7.0); NEUT % 81.9 % (50.0-75.0); NRBC % 0.6 % (0.0-2.0); RBC 2.84 Mil/uL (3.80-5.20); RED CELL DISTRIBUTION WIDTH 15.9 % (11.5-14.5)
--- NOTE | 2018-07-12 08:08 | CARD ---
APPROVED REPORT Date of service: 07/10/2018 EKG Measurement Heart [id number] <Conclusion> Accelerated Junctional rhythm Low voltage QRS Abnormal ECG
[2018-07-12 08:09] LABS: ALB/GLOB RATIO 0.9 (1.0-2.1); ALBUMIN 2.1 g/dL (3.5-5.0)
--- NOTE | 2018-07-12 09:16 | RAD ---
Chest x-ray single frontal view History: Intubation. COMPARISON: 07/11/2018 Findings: Lines and tubes in stable position. Moderate to severe venous congestion. Bibasilar airspace opacities. Right hilar prominence. Cardiomegaly. Degenerative changes in the spine. Impression: Lines and tubes in stable position. Moderate to severe venous congestion. Bibasilar airspace opacities. Right hilar prominence. Cardiomegaly.
[2018-07-12] MEDS ORDERED: Potassium Chloride 20 mEq/15 ml LIQ UD NG ONE (09:17)
[2018-07-12] MEDS: Lactobacillus Acidophilus 500 MU Cap PO SCH ×2 (09:23→20:48)
[2018-07-12] MEDS: Pantoprazole 40 mg Susp UD PO SCH ×2 (09:27→17:25)
[2018-07-12] MEDS ORDERED: Metoprolol 1 mg/ml Inj IVP ONE (09:49)
--- NOTE | 2018-07-12 14:10 | CP.CCUPN ---
<Anabel Hinkle L - Last Filed: 07/12/18 14:19> CCU Subjective - Physician Review Subjective (Free Text): Resident Critical Care Progress Note Patient examined at bedside. No acute events overnight. Patient is intubated, does not follow commands. Critical Care Time Spent (in minutes): 35 CCU Objective - Vital Signs / Intake & Output Vital Signs (Last 4 hours): Vital Signs Temp Pulse Resp BP Pulse Ox 07/12/18 13:00 111 H 20 98 07/12/18 12:13 116 H 15 128/76 98 07/12/18 12:00 99.1 F 113 H 15 98 07/12/18 11:13 139/83 07/12/18 11:00 134 H 13 100 07/12/18 10:13 138/94 H Intake and Output (Last 8hrs): Intake & Output 07/11/18 07/12/18 07/12/18 22:59 06:59 14:59 Intake Total 1236.0 886.2 715.2 Output Total 522 602 2566 Balance 311.0 96.2 -509.8 Weight 123 lb 0.25 oz Intake: IV 134 49 61 Intake, IV Amount 642.0 437.2 304.2 Left Distal Port Femoral 16.6 Left Medial Port Femoral 32.5 12.5 Left Proximal Port 530 380 260 Femoral R Trialysis #1 62.9 57.2 31.7 Tube Feeding 400 400 350 Other 60 Output: Urine 468 601 4281 Urethral (Mcintyre) 015 191 2566 - Physical Exam Head: Positive for: Atraumatic, Normocephalic Pupils: Positive for: PERRL Extroacular Muscles: Positive for: EOMI Conjunctiva: Positive for: Normal Mouth: Positive for: Moist Mucous Membranes Respiratory/Chest: Positive for: Good Air Exchange, Rhonchi Cardiovascular: Positive for: Normal S1, S2, Tachycardic Abdomen: Positive for: Normal Bowel Sounds. Negative for: Tenderness, Distention Upper Extremity: Positive for: Normal Inspection. Negative for: Cyanosis, Edema Lower Extremity: Positive for: Normal Inspection. Negative for: Edema, CALF TENDERNESS Skin: Positive for: Warm, Dry, Normal Color - Medications Active Medications: Active Medications Generic Name Dose Route Start Last Admin Trade Name Freq PRN Reason Stop Dose Admin Acetaminophen 650 mg 07/07/18 20:03 07/10/18 00:00 Tylenol 325mg Tab PO 650 mg Q6H PRN Administration Pain, moderate (4-7) Albuterol/Ipratropium 3 ml 07/09/18 12:00 07/12/18 11:30 Duoneb 3 Mg/0.5 Mg (3 Ml) Ud INH Not Given RQ4 MANOLO Amiodarone HCl 200 mg 07/11/18 17:15 07/12/18 09:26 Cordarone PO 200 mg DAILY MANOLO Administration Aspirin 81 mg 07/12/18 10:00 07/12/18 09:26 Ecotrin PO 81 mg DAILY MANOLO Administration Ergocalciferol 1 cap 07/11/18 12:45 07/11/18 14:50 Drisdol 50,000 Intl Units Cap PO 1 cap Q7D MANOLO Administration Furosemide 40 mg 07/11/18 18:00 07/12/18 09:26 Lasix IVP 40 mg BID MANOLO Administration Hydrocortisone Sodium Succinate 50 mg 07/13/18 10:00 Solu-Cortef IV DAILY MANOLO Meropenem 500 mg/ Sodium 100 mls @ 100 mls/hr 07/10/18 00:30 07/12/18 11:31 Chloride IVPB 100 mls/hr Q12H MANOLO Administration Protocol Heparin Sodium/Sodium Chloride 25,000 units in 250 mls @ 10.207 mls/hr 09:20 07/12/18 09:20 Heparin 94289 Units/250ml 1/2 Normal Saline IV 9 units/kg/hr .Q24H PRN 5.103 mls/hr PROTOCOL Titration Protocol 18 UNITS/KG/HR Diltiazem HCl 125 mg/ Sodium 125 mls @ 5 mls/hr 07/12/18 10:45 07/12/18 13:00 Chloride IV 7.5 mg/hr .Q24H MANOLO 7.5 mls/hr Titration Protocol 5 MG/HR Insulin Aspart 0 unit 07/11/18 08:28 07/12/18 12:08 Novolog SC 6 u Q6 MANOLO Administration Protocol Insulin Glargine 10 unit 07/12/18 20:00 Lantus SC DAILY MANOLO Lactobacillus Acidophilus 1 cap 07/08/18 20:00 07/12/18 09:23 Bacid Acidophilus PO 1 cap Q12H MANOLO Administration Methimazole 10 mg 07/11/18 10:00 07/12/18 09:27 Tapazole PO 10 mg TID MANOLO Administration Ondansetron HCl 4 mg 07/07/18 18:00 07/08/18 13:06 Zofran Inj IVP 4 mg Q6H PRN Administration Nausea/Vomiting Pantoprazole Sodium 40 mg 07/11/18 10:00 07/12/18 09:27 Protonix Susp PO 40 mg BID MANOLO Administration - Patient Studies Lab Studies: Microbiology Studies 07/09/18 17:17 Blood Culture - Preliminary Blood NO GROWTH AFTER 48 HOURS 07/09/18 17:16 Blood Culture - Preliminary Blood NO GROWTH AFTER 48 HOURS 07/07/18 16:47 Blood Culture - Preliminary Blood-Venous NO GROWTH AFTER 4 DAYS 07/07/18 16:47 Blood Culture - Preliminary Blood-Venous NO GROWTH AFTER 4 DAYS 07/10/18 11:01 Mycobacterial Culture - Preliminary Other: Please Indicate 07/09/18 10:32 Gram Stain - Final Trachasp Sputum Culture - Final Yeast Species Lab Studies 07/12/18 07/12/18 07/12/18 Range/Units 11:17 07:47 07:47 WBC (4.8-10.8) K/uL RBC (3.80-5.20) Mil/uL Hgb (11.0-16.0) g/dL Hct (34.0-47.0) % MCV (81.0-99.0) fL MCH (27.0-31.0) pg MCHC (33.0-37.0) g/dL RDW (11.5-14.5) % Plt Count (130-400) K/uL MPV (7.2-11.7) fL Neut % (Auto) (50.0-75.0) % Lymph % (Auto) (20.0-40.0) % [place] % (Auto) (0.0-10.0) % Eos % (Auto) (0.0-4.0) % Baso % (Auto) (0.0-2.0) % Neut # (Auto) (1.8-7.0) K/uL Lymph # (Auto) (1.0-4.3) K/uL [place] # (Auto) (0.0-0.8) K/uL Eos # (Auto) (0.0-0.7) K/uL Baso # (Auto) (0.0-0.2) K/uL APTT 121 H* D (21-34) SECONDS Puncture Site pCO2 (35-45) mm/Hg pO2 (80-100) mm/Hg HCO3 (21-28) mmol/L ABG pH (7.35-7.45) ABG Total CO2 (22-28) mmol/L ABG O2 Saturation (95-98) % ABG Base Excess (-2.0-3.0) mmol/L ABG Hemoglobin (11.7-17.4) g/dL ABG Carboxyhemoglobin (0.5-1.5) % POC ABG HHb (Measured) (0.0-5.0) % ABG Methemoglobin (0.0-3.0) % Kevon Test A-a O2 Difference mm/Hg Respiratory Index Hgb O2 Saturation (95.0-98.0) % Vent Mode Mechanical Rate FiO2 % Tidal Volume PEEP Sodium 144 (132-148) mmol/L Potassium 3.0 L (3.6-5.2) mmol/L Chloride 105 (98-107) mmol/L Carbon Dioxide 30 (22-30) mmol/L Anion Gap 12 (10-20) BUN 45 H (7-17) mg/dL Creatinine 1.9 H (0.7-1.2) mg/dL Est GFR ( Amer) 34 Est GFR (Non-Af Amer) 28 POC Glucose (mg/dL) 282 H (65-110) mg/dL Random Glucose 306 H (65-105) mg/dL Calcium 7.0 L (8.6-10.4) mg/dl Phosphorus 2.1 L (2.5-4.5) mg/dL Magnesium 1.9 (1.6-2.3) mg/dL Total Bilirubin 0.6 (0.2-1.3) mg/dL AST 103 H D (14-36) U/L ALT 249 H D (9-52) U/L Alkaline Phosphatase 128 H D (38-126) U/L Total Protein 4.4 L (6.3-8.3) g/dL Albumin 2.1 L (3.5-5.0) g/dL Globulin 2.3 (2.2-3.9) gm/dL Albumin/Globulin Ratio 0.9 L (1.0-2.1) PTH Intact Whole Molec (14-64) pg/mL Stool Occult Blood (NEGATIVE) LIA Screen (Negative) LIA Titer LIA Titer 2 LIA Pattern LIA Pattern 2 Double Strand DNA Ab IU/mL 07/12/18 07/12/18 07/12/18 Range/Units 07:47 06:37 04:15 WBC 7.0 (4.8-10.8) K/uL RBC 2.84 L (3.80-5.20) Mil/uL Hgb 8.7 L (11.0-16.0) g/dL Hct 25.3 L (34.0-47.0) % MCV 89.1 (81.0-99.0) fL MCH 30.5 (27.0-31.0) pg MCHC 34.3 (33.0-37.0) g/dL RDW 15.9 H (11.5-14.5) % Plt Count 134 (130-400) K/uL MPV 8.4 (7.2-11.7) fL Neut % (Auto) 81.9 H (50.0-75.0) % Lymph % (Auto) 13.8 L (20.0-40.0) % [place] % (Auto) 3.6 (0.0-10.0) % Eos % (Auto) 0.2 (0.0-4.0) % Baso % (Auto) 0.5 (0.0-2.0) % Neut # (Auto) 5.7 (1.8-7.0) K/uL Lymph # (Auto) 1.0 (1.0-4.3) K/uL [place] # (Auto) 0.3 (0.0-0.8) K/uL Eos # (Auto) 0.0 (0.0-0.7) K/uL Baso # (Auto) 0.0 (0.0-0.2) K/uL APTT (21-34) SECONDS Puncture Site Rr pCO2 43 (35-45) mm/Hg pO2 111 H (80-100) mm/Hg HCO3 28.4 H (21-28) mmol/L ABG pH 7.44 (7.35-7.45) ABG Total CO2 30.5 H (22-28) mmol/L ABG O2 Saturation 98.5 H (95-98) % ABG Base Excess 4.5 H (-2.0-3.0) mmol/L ABG Hemoglobin 11.1 L (11.7-17.4) g/dL ABG Carboxyhemoglobin 1.1 (0.5-1.5) % POC ABG HHb (Measured) 1.5 (0.0-5.0) % ABG Methemoglobin 0.9 (0.0-3.0) % Kevon Test Pos A-a O2 Difference 263.0 mm/Hg Respiratory Index 2.4 Hgb O2 Saturation 96.5 (95.0-98.0) % Vent Mode Prvc Mechanical Rate 12 FiO2 60.0 % Tidal Volume 450 PEEP 5 Sodium (132-148) mmol/L Potassium (3.6-5.2) mmol/L Chloride (98-107) mmol/L Carbon Dioxide (22-30) mmol/L Anion Gap (10-20) BUN (7-17) mg/dL Creatinine (0.7-1.2) mg/dL Est GFR ( Amer) Est GFR (Non-Af Amer) POC Glucose (mg/dL) 345 H (65-110) mg/dL Random Glucose (65-105) mg/dL Calcium (8.6-10.4) mg/dl Phosphorus (2.5-4.5) mg/dL Magnesium (1.6-2.3) mg/dL Total Bilirubin (0.2-1.3) mg/dL AST (14-36) U/L ALT (9-52) U/L Alkaline Phosphatase (38-126) U/L Total Protein (6.3-8.3) g/dL Albumin (3.5-5.0) g/dL Globulin (2.2-3.9) gm/dL Albumin/Globulin Ratio (1.0-2.1) PTH Intact Whole Molec (14-64) pg/mL Stool Occult Blood (NEGATIVE) ILA Screen (Negative) LIA Titer LIA Titer 2 LIA Pattern LIA Pattern 2 Double Strand DNA Ab IU/mL 07/12/18 07/11/18 07/11/18 Range/Units 00:07 23:39 17:57 WBC (4.8-10.8) K/uL RBC (3.80-5.20) Mil/uL Hgb (11.0-16.0) g/dL Hct (34.0-47.0) % MCV (81.0-99.0) fL MCH (27.0-31.0) pg MCHC (33.0-37.0) g/dL RDW (11.5-14.5) % Plt Count (130-400) K/uL MPV (7.2-11.7) fL Neut % (Auto) (50.0-75.0) % Lymph % (Auto) (20.0-40.0) % [place] % (Auto) (0.0-10.0) % Eos % (Auto) (0.0-4.0) % Baso % (Auto) (0.0-2.0) % Neut # (Auto) (1.8-7.0) K/uL Lymph # (Auto) (1.0-4.3) K/uL [place] # (Auto) (0.0-0.8) K/uL Eos # (Auto) (0.0-0.7) K/uL Baso # (Auto) (0.0-0.2) K/uL APTT 216 H* D (21-34) SECONDS Puncture Site pCO2 (35-45) mm/Hg pO2 (80-100) mm/Hg HCO3 (21-28) mmol/L ABG pH (7.35-7.45) ABG Total CO2 (22-28) mmol/L ABG O2 Saturation (95-98) % ABG Base Excess (-2.0-3.0) mmol/L ABG Hemoglobin (11.7-17.4) g/dL ABG Carboxyhemoglobin (0.5-1.5) % POC ABG HHb (Measured) (0.0-5.0) % ABG Methemoglobin (0.0-3.0) % Kevon Test A-a O2 Difference mm/Hg Respiratory Index Hgb O2 Saturation (95.0-98.0) % Vent Mode Mechanical Rate FiO2 % Tidal Volume PEEP Sodium (132-148) mmol/L Potassium (3.6-5.2) mmol/L Chloride (98-107) mmol/L Carbon Dioxide (22-30) mmol/L Anion Gap (10-20) BUN (7-17) mg/dL Creatinine (0.7-1.2) mg/dL Est GFR ( Amer) Est GFR (Non-Af Amer) POC Glucose (mg/dL) 246 H 309 H (65-110) mg/dL Random Glucose (65-105) mg/dL Calcium (8.6-10.4) mg/dl Phosphorus (2.5-4.5) mg/dL Magnesium (1.6-2.3) mg/dL Total Bilirubin (0.2-1.3) mg/dL AST (14-36) U/L ALT (9-52) U/L Alkaline Phosphatase (38-126) U/L Total Protein (6.3-8.3) g/dL Albumin (3.5-5.0) g/dL Globulin (2.2-3.9) gm/dL Albumin/Globulin Ratio (1.0-2.1) PTH Intact Whole Molec (14-64) pg/mL Stool Occult Blood (NEGATIVE) LIA Screen (Negative) LIA Titer LIA Titer 2 LIA Pattern LIA Pattern 2 Double Strand DNA Ab IU/mL 07/11/18 07/11/18 07/10/18 Range/Units 16:56 12:33 13:07 WBC (4.8-10.8) K/uL RBC (3.80-5.20) Mil/uL Hgb (11.0-16.0) g/dL Hct (34.0-47.0) % MCV (81.0-99.0) fL MCH (27.0-31.0) pg MCHC (33.0-37.0) g/dL RDW (11.5-14.5) % Plt Count (130-400) K/uL MPV (7.2-11.7) fL Neut % (Auto) (50.0-75.0) % Lymph % (Auto) (20.0-40.0) % [place] % (Auto) (0.0-10.0) % Eos % (Auto) (0.0-4.0) % Baso % (Auto) (0.0-2.0) % Neut # (Auto) (1.8-7.0) K/uL Lymph # (Auto) (1.0-4.3) K/uL [place] # (Auto) (0.0-0.8) K/uL Eos # (Auto) (0.0-0.7) K/uL Baso # (Auto) (0.0-0.2) K/uL APTT > 400 H* D (21-34) SECONDS Puncture Site pCO2 (35-45) mm/Hg pO2 (80-100) mm/Hg HCO3 (21-28) mmol/L ABG pH (7.35-7.45) ABG Total CO2 (22-28) mmol/L ABG O2 Saturation (95-98) % ABG Base Excess (-2.0-3.0) mmol/L ABG Hemoglobin (11.7-17.4) g/dL ABG Carboxyhemoglobin (0.5-1.5) % POC ABG HHb (Measured) (0.0-5.0) % ABG Methemoglobin (0.0-3.0) % Kevon Test A-a O2 Difference mm/Hg Respiratory Index Hgb O2 Saturation (95.0-98.0) % Vent Mode Mechanical Rate FiO2 % Tidal Volume PEEP Sodium (132-148) mmol/L Potassium (3.6-5.2) mmol/L Chloride (98-107) mmol/L Carbon Dioxide (22-30) mmol/L Anion Gap (10-20) BUN (7-17) mg/dL Creatinine (0.7-1.2) mg/dL Est GFR ( Amer) Est GFR (Non-Af Amer) POC Glucose (mg/dL) 312 H (65-110) mg/dL Random Glucose (65-105) mg/dL Calcium (8.6-10.4) mg/dl Phosphorus (2.5-4.5) mg/dL Magnesium (1.6-2.3) mg/dL Total Bilirubin (0.2-1.3) mg/dL AST (14-36) U/L ALT (9-52) U/L Alkaline Phosphatase (38-126) U/L Total Protein (6.3-8.3) g/dL Albumin (3.5-5.0) g/dL Globulin (2.2-3.9) gm/dL Albumin/Globulin Ratio (1.0-2.1) PTH Intact Whole Molec 708 H (14-64) pg/mL Stool Occult Blood (NEGATIVE) LIA Screen (Negative) LIA Titer LIA Titer 2 LIA Pattern LIA Pattern 2 Double Strand DNA Ab IU/mL 07/10/18 07/08/18 Range/Units 08:45 23:06 WBC (4.8-10.8) K/uL RBC (3.80-5.20) Mil/uL Hgb (11.0-16.0) g/dL Hct (34.0-47.0) % MCV (81.0-99.0) fL MCH (27.0-31.0) pg MCHC (33.0-37.0) g/dL RDW (11.5-14.5) % Plt Count (130-400) K/uL MPV (7.2-11.7) fL Neut % (Auto) (50.0-75.0) % Lymph % (Auto) (20.0-40.0) % [place] % (Auto) (0.0-10.0) % Eos % (Auto) (0.0-4.0) % Baso % (Auto) (0.0-2.0) % Neut # (Auto) (1.8-7.0) K/uL Lymph # (Auto) (1.0-4.3) K/uL [place] # (Auto) (0.0-0.8) K/uL Eos # (Auto) (0.0-0.7) K/uL Baso # (Auto) (0.0-0.2) K/uL APTT (21-34) SECONDS Puncture Site pCO2 (35-45) mm/Hg pO2 (80-100) mm/Hg HCO3 (21-28) mmol/L ABG pH (7.35-7.45) ABG Total CO2 (22-28) mmol/L ABG O2 Saturation (95-98) % ABG Base Excess (-2.0-3.0) mmol/L ABG Hemoglobin (11.7-17.4) g/dL ABG Carboxyhemoglobin (0.5-1.5) % POC ABG HHb (Measured) (0.0-5.0) % ABG Methemoglobin (0.0-3.0) % Kevon Test A-a O2 Difference mm/Hg Respiratory Index Hgb O2 Saturation (95.0-98.0) % Vent Mode Mechanical Rate FiO2 % Tidal Volume PEEP Sodium (132-148) mmol/L Potassium (3.6-5.2) mmol/L Chloride (98-107) mmol/L Carbon Dioxide (22-30) mmol/L Anion Gap (10-20) BUN (7-17) mg/dL Creatinine (0.7-1.2) mg/dL Est GFR ( Amer) Est GFR (Non-Af Amer) POC Glucose (mg/dL) (65-110) mg/dL Random Glucose (65-105) mg/dL Calcium (8.6-10.4) mg/dl Phosphorus (2.5-4.5) mg/dL Magnesium (1.6-2.3) mg/dL Total Bilirubin (0.2-1.3) mg/dL AST (14-36) U/L ALT (9-52) U/L Alkaline Phosphatase (38-126) U/L Total Protein (6.3-8.3) g/dL Albumin (3.5-5.0) g/dL Globulin (2.2-3.9) gm/dL Albumin/Globulin Ratio (1.0-2.1) PTH Intact Whole Molec (14-64) pg/mL Stool Occult Blood (NEGATIVE) LIA Screen Negative (Negative) LIA Titer TEST NOT PERFORMED ILA Titer 2 TEST NOT PERFORMED LIA Pattern TEST NOT PERFORMED LIA Pattern 2 TEST NOT PERFORMED Double Strand DNA Ab <1 IU/mL Laboratory Results - last 24 hr 07/08/18 07/10/18 07/10/18 23:06 08:45 13:07 WBC RBC Hgb Hct MCV MCH MCHC RDW Plt Count MPV Neut % (Auto) Lymph % (Auto) [place] % (Auto) Eos % (Auto) Baso % (Auto) Neut # (Auto) Lymph # (Auto) [place] # (Auto) Eos # (Auto) Baso # (Auto) APTT Puncture Site pCO2 pO2 HCO3 ABG pH ABG Total CO2 ABG O2 Saturation ABG Base Excess ABG Hemoglobin ABG Carboxyhemoglobin POC ABG HHb (Measured) ABG Methemoglobin Kevon Test A-a O2 Difference Respiratory Index Hgb O2 Saturation Vent Mode Mechanical Rate FiO2 Tidal Volume PEEP Sodium Potassium Chloride Carbon Dioxide Anion Gap BUN Creatinine Est GFR ( Amer) Est GFR (Non-Af Amer) POC Glucose (mg/dL) Random Glucose Calcium Phosphorus Magnesium Total Bilirubin AST ALT Alkaline Phosphatase Total Protein Albumin Globulin Albumin/Globulin Ratio PTH Intact Whole Molec 708 H Stool Occult Blood LIA Screen Negative LIA Titer TEST NOT PERFORMED LIA Titer 2 TEST NOT PERFORMED LIA Pattern TEST NOT PERFORMED LIA Pattern 2 TEST NOT PERFORMED Double Strand DNA Ab <1 07/11/18 07/11/18 07/11/18 12:33 16:56 17:57 WBC RBC Hgb Hct MCV MCH MCHC RDW Plt Count MPV Neut % (Auto) Lymph % (Auto) [place] % (Auto) Eos % (Auto) Baso % (Auto) Neut # (Auto) Lymph # (Auto) [place] # (Auto) Eos # (Auto) Baso # (Auto) APTT > 400 H* D Puncture Site pCO2 pO2 HCO3 ABG pH ABG Total CO2 ABG O2 Saturation ABG Base Excess ABG Hemoglobin ABG Carboxyhemoglobin POC ABG HHb (Measured) ABG Methemoglobin Kevon Test A-a O2 Difference Respiratory Index Hgb O2 Saturation Vent Mode Mechanical Rate FiO2 Tidal Volume PEEP Sodium Potassium Chloride Carbon Dioxide Anion Gap BUN Creatinine Est GFR ( Amer) Est GFR (Non-Af Amer) POC Glucose (mg/dL) 312 H 309 H Random Glucose Calcium Phosphorus Magnesium Total Bilirubin AST ALT Alkaline Phosphatase Total Protein Albumin Globulin Albumin/Globulin Ratio PTH Intact Whole Molec Stool Occult Blood LIA Screen LIA Titer LIA Titer 2 LIA Pattern LIA Pattern 2 Double Strand DNA Ab 07/11/18 07/12/18 07/12/18 23:39 00:07 04:15 WBC RBC Hgb Hct MCV MCH MCHC RDW Plt Count MPV Neut % (Auto) Lymph % (Auto) [place] % (Auto) Eos % (Auto) Baso % (Auto) Neut # (Auto) Lymph # (Auto) [place] # (Auto) Eos # (Auto) Baso # (Auto) APTT 216 H* D Puncture Site Rr pCO2 43 pO2 111 H HCO3 28.4 H ABG pH 7.44 ABG Total CO2 30.5 H ABG O2 Saturation 98.5 H ABG Base Excess 4.5 H ABG Hemoglobin 11.1 L ABG Carboxyhemoglobin 1.1 POC ABG HHb (Measured) 1.5 ABG Methemoglobin 0.9 Kevon Test Pos A-a O2 Difference 263.0 Respiratory Index 2.4 Hgb O2 Saturation 96.5 Vent Mode Prvc Mechanical Rate 12 FiO2 60.0 Tidal Volume 450 PEEP 5 Sodium Potassium Chloride Carbon Dioxide Anion Gap BUN Creatinine Est GFR ( Amer) Est GFR (Non-Af Amer) POC Glucose (mg/dL) 246 H Random Glucose Calcium Phosphorus Magnesium Total Bilirubin AST ALT Alkaline Phosphatase Total Protein Albumin Globulin Albumin/Globulin Ratio PTH Intact Whole Molec Stool Occult Blood LIA Screen LIA Titer LIA Titer 2 LIA Pattern LIA Pattern 2 Double Strand DNA Ab 07/12/18 07/12/18 07/12/18 06:37 07:47 07:47 WBC 7.0 RBC 2.84 L Hgb 8.7 L Hct 25.3 L MCV 89.1 MCH 30.5 MCHC 34.3 RDW 15.9 H Plt Count 134 MPV 8.4 Neut % (Auto) 81.9 H Lymph % (Auto) 13.8 L [place] % (Auto) 3.6 Eos % (Auto) 0.2 Baso % (Auto) 0.5 Neut # (Auto) 5.7 Lymph # (Auto) 1.0 [place] # (Auto) 0.3 Eos # (Auto) 0.0 Baso # (Auto) 0.0 APTT Puncture Site pCO2 pO2 HCO3 ABG pH ABG Total CO2 ABG O2 Saturation ABG Base Excess ABG Hemoglobin ABG Carboxyhemoglobin POC ABG HHb (Measured) ABG Methemoglobin Kevon Test A-a O2 Difference Respiratory Index Hgb O2 Saturation Vent Mode Mechanical Rate FiO2 Tidal Volume PEEP Sodium 144 Potassium 3.0 L Chloride 105 Carbon Dioxide 30 Anion Gap 12 BUN 45 H Creatinine 1.9 H Est GFR ( Amer) 34 Est GFR (Non-Af Amer) 28 POC Glucose (mg/dL) 345 H Random Glucose 306 H Calcium 7.0 L Phosphorus 2.1 L Magnesium 1.9 Total Bilirubin 0.6 AST 103 H D ALT 249 H D Alkaline Phosphatase 128 H D Total Protein 4.4 L Albumin 2.1 L Globulin 2.3 Albumin/Globulin Ratio 0.9 L PTH Intact Whole Molec Stool Occult Blood LIA Screen LIA Titer LIA Titer 2 LIA Pattern LIA Pattern 2 Double Strand DNA Ab 07/12/18 07/12/18 07:47 11:17 WBC RBC Hgb Hct MCV MCH MCHC RDW Plt Count MPV Neut % (Auto) Lymph % (Auto) [place] % (Auto) Eos % (Auto) Baso % (Auto) Neut # (Auto) Lymph # (Auto) [place] # (Auto) Eos # (Auto) Baso # (Auto) APTT 121 H* D Puncture Site pCO2 pO2 HCO3 ABG pH ABG Total CO2 ABG O2 Saturation ABG Base Excess ABG Hemoglobin ABG Carboxyhemoglobin POC ABG HHb (Measured) ABG Methemoglobin Kevon Test A-a O2 Difference Respiratory Index Hgb O2 Saturation Vent Mode Mechanical Rate FiO2 Tidal Volume PEEP Sodium Potassium Chloride Carbon Dioxide Anion Gap BUN Creatinine Est GFR ( Amer) Est GFR (Non-Af Amer) POC Glucose (mg/dL) 282 H Random Glucose Calcium Phosphorus Magnesium Total Bilirubin AST ALT Alkaline Phosphatase Total Protein Albumin Globulin Albumin/Globulin Ratio PTH Intact Whole Molec Stool Occult Blood LIA Screen LIA Titer LIA Titer 2 LIA Pattern LIA Pattern 2 Double Strand DNA Ab EKG/Cardiology Studies: Cardiology / EKG Studies 07/11/18 18:09 ELECTROCARDIOGRAM Stat Comment: Mode Of Transportation: Reason For Exam: tachy Fingerstick Blood Sugar Results: 345 Review of Systems - Review of Systems Systems not reviewed;Unavailable: Intubated Assessment/Plan - Assessment and Plan (Free Text) Assessment: 52 y/o female with past medical history of T2DM presents to [facility] with c/p cough and malaise for the past 2-3 weeks. coughing associated with vomiting. (+) vomiting food contents. Seen in ED three days earlier dx with UTI & started on Bactrim. Admitted for respiratory failure and ARF. Intubated (07/08). Plan: Neuro: - fentanyl discontinued Pulm: - respiratory failure likely due to aspiration pneumonia - Duonebs 2 ml INH RQ4 CV: - pressors discontinued - amiodarone 200 mg PO daily - Cardiology consulted. Appreciate recs. - repeat ECHO from shows left ventricular thrombus, now on heparin drip - aspirin 81 mg daily - continuous episodes of tachycardia, cardizem drip Heme: - no acute issues - continue to monitor H/H Renal: - NS 40 ccs/hr - Lasix 40 mg IV BID Endo: - ISS for coverage, q6h - Solu-cortef 50 mg IV Q12 - methimazole 10 mg PO TID GI: - NPO, tube feeds, Nepro ID: - aspiration pneumonitis/pneumonia, and recent UTI - afebrile, leukocytosis trending down - Merrem 500 mg IV Q12H DVT proph - heparin ggt GI proph - protonix Access: [email or web address] for strict I/O's during acute illness, RIJ Trialysis (07/08), Left Fem TLC (07/09) Code status - full code Case and plan was reviewed and discussed with Dr. Neville Hinkle PGY-1 - Date & Time Date: 07/12/18 Time: 08:00 <Errol Lozada - Last Filed: 07/12/18 18:38> CCU Subjective - Physician Review Critical Care Time Spent (in minutes): 45 CCU Objective - Vital Signs / Intake & Output Vital Signs (Last 4 hours): Vital Signs Temp Pulse Resp BP Pulse Ox 07/12/18 17:25 122/69 07/12/18 17:13 91 H 15 122/69 98 07/12/18 17:00 107 H 12 97 07/12/18 16:21 107 H 11 L 129/71 98 07/12/18 16:10 100.6 F H 07/12/18 16:00 100.6 F H 101 H 11 L 99 07/12/18 15:14 114 H 13 132/79 96 07/12/18 15:00 108 H 17 99 Intake and Output (Last 8hrs): Intake & Output 07/12/18 07/12/18 07/12/18 06:59 14:59 22:59 Intake Total 886.2 777.7 187.5 Output Total 790 1525 725 Balance 96.2 -747.3 -537.5 Weight 123 lb 0.25 oz Intake: IV 49 61 Intake, IV Amount 437.2 316.7 37.5 Left Medial Port Femoral 20.0 22.5 Left Proximal Port 380 260 Femoral R Trialysis #1 57.2 36.7 15 Tube Feeding 400 400 150 Output: Urine 790 1525 725 Urethral (Mcintyre) 790 1525 725 - Medications Active Medications: Active Medications Generic Name Dose Route Start Last Admin Trade Name Freq PRN Reason Stop Dose Admin Acetaminophen 650 mg 07/07/18 20:03 07/12/18 16:10 Tylenol 325mg Tab PO 650 mg Q6H PRN Administration Pain, moderate (4-7) Acetaminophen 650 mg 07/12/18 15:57 Tylenol 325mg Tab PO Q6 PRN Fever >100.4 F Albuterol/Ipratropium 3 ml 07/09/18 12:00 07/12/18 11:30 Duoneb 3 Mg/0.5 Mg (3 Ml) Ud INH Not Given RQ4 MANOLO Amiodarone HCl 200 mg 07/11/18 17:15 07/12/18 09:26 Cordarone PO 200 mg DAILY MANOLO Administration Aspirin 81 mg 07/12/18 10:00 07/12/18 09:26 Ecotrin PO 81 mg DAILY MANOLO Administration Ergocalciferol 1 cap 07/11/18 12:45 07/11/18 14:50 Drisdol 50,000 Intl Units Cap PO 1 cap Q7D MANOLO Administration Furosemide 40 mg 07/11/18 18:00 07/12/18 17:25 Lasix IVP 40 mg BID MANOLO Administration Hydrocortisone Sodium Succinate 50 mg 07/13/18 10:00 Solu-Cortef IV DAILY MANOLO Meropenem 500 mg/ Sodium 100 mls @ 100 mls/hr 07/10/18 00:30 07/12/18 11:31 Chloride IVPB 100 mls/hr Q12H MANOLO Administration Protocol Heparin Sodium/Sodium Chloride 25,000 units in 250 mls @ 10.207 mls/hr 07/11/18 09:20 07/12/18 09:20 Heparin 08041 Units/250ml 1/2 Normal Saline IV 9 units/kg/hr .Q24H PRN 5.103 mls/hr PROTOCOL Titration Protocol 18 UNITS/KG/HR Diltiazem HCl 125 mg/ Sodium 125 mls @ 5 mls/hr 07/12/18 10:45 07/12/18 13:00 Chloride IV 7.5 mg/hr .Q24H MANOLO 7.5 mls/hr Titration Protocol 5 MG/HR Insulin Aspart 0 unit 07/11/18 08:28 07/12/18 18:13 Novolog SC 8 u Q6 MANOLO Administration Protocol Insulin Glargine 10 unit 07/12/18 20:00 Lantus SC DAILY MANOLO Lactobacillus Acidophilus 1 cap 07/08/18 20:00 07/12/18 09:23 Bacid Acidophilus PO 1 cap Q12H MANOLO Administration Methimazole 10 mg 07/11/18 10:00 07/12/18 17:25 Tapazole PO 10 mg TID MANOLO Administration Ondansetron HCl 4 mg 07/07/18 18:00 07/08/18 13:06 Zofran Inj IVP 4 mg Q6H PRN Administration Nausea/Vomiting Pantoprazole Sodium 40 mg 07/11/18 10:00 07/12/18 17:25 Protonix Susp PO 40 mg BID MANOLO Administration - Patient Studies Lab Studies: Microbiology Studies 07/09/18 17:17 Blood Culture - Preliminary Blood NO GROWTH AFTER 3 DAYS 07/09/18 17:16 Blood Culture - Preliminary Blood NO GROWTH AFTER 3 DAYS 07/07/18 16:47 Blood Culture - Final Blood-Venous NO GROWTH AFTER 5 DAYS Gram Stain - Final TEST NOT PERFORMED 07/07/18 16:47 Blood Culture - Final Blood-Venous NO GROWTH AFTER 5 DAYS Gram Stain - Final TEST NOT PERFORMED 07/10/18 11:01 Mycobacterial Culture - Preliminary Other: Please Indicate Lab Studies 07/12/18 07/12/18 07/12/18 Range/Units 17:53 14:46 11:17 WBC (4.8-10.8) K/uL RBC (3.80-5.20) Mil/uL Hgb (11.0-16.0) g/dL Hct (34.0-47.0) % MCV (81.0-99.0) fL MCH (27.0-31.0) pg MCHC (33.0-37.0) g/dL RDW (11.5-14.5) % Plt Count (130-400) K/uL MPV (7.2-11.7) fL Neut % (Auto) (50.0-75.0) % Lymph % (Auto) (20.0-40.0) % [place] % (Auto) (0.0-10.0) % Eos % (Auto) (0.0-4.0) % Baso % (Auto) (0.0-2.0) % Neut # (Auto) (1.8-7.0) K/uL Lymph # (Auto) (1.0-4.3) K/uL [place] # (Auto) (0.0-0.8) K/uL Eos # (Auto) (0.0-0.7) K/uL Baso # (Auto) (0.0-0.2) K/uL APTT 58 H D (21-34) SECONDS Puncture Site pCO2 (35-45) mm/Hg pO2 (80-100) mm/Hg HCO3 (21-28) mmol/L ABG pH (7.35-7.45) ABG Total CO2 (22-28) mmol/L ABG O2 Saturation (95-98) % ABG Base Excess (-2.0-3.0) mmol/L ABG Hemoglobin (11.7-17.4) g/dL ABG Carboxyhemoglobin (0.5-1.5) % POC ABG HHb (Measured) (0.0-5.0) % ABG Methemoglobin (0.0-3.0) % Kevon Test A-a O2 Difference mm/Hg Respiratory Index Hgb O2 Saturation (95.0-98.0) % Vent Mode Mechanical Rate FiO2 % Tidal Volume PEEP Sodium (132-148) mmol/L Potassium (3.6-5.2) mmol/L Chloride (98-107) mmol/L Carbon Dioxide (22-30) mmol/L Anion Gap (10-20) BUN (7-17) mg/dL Creatinine (0.7-1.2) mg/dL Est GFR ( Amer) Est GFR (Non-Af Amer) POC Glucose (mg/dL) 326 H 282 H (65-110) mg/dL Random Glucose (65-105) mg/dL Calcium (8.6-10.4) mg/dl Phosphorus (2.5-4.5) mg/dL Magnesium (1.6-2.3) mg/dL Total Bilirubin (0.2-1.3) mg/dL AST (14-36) U/L ALT (9-52) U/L Alkaline Phosphatase (38-126) U/L Total Protein (6.3-8.3) g/dL Albumin (3.5-5.0) g/dL Globulin (2.2-3.9) gm/dL Albumin/Globulin Ratio (1.0-2.1) Stool Occult Blood (NEGATIVE) Proteinase 3 (PR3) (<1.0) AI Myeloperoxidase Ab (<1.0) AI 07/12/18 07/12/18 07/12/18 Range/Units 07:47 07:47 07:47 WBC 7.0 (4.8-10.8) K/uL RBC 2.84 L (3.80-5.20) Mil/uL Hgb 8.7 L (11.0-16.0) g/dL Hct 25.3 L (34.0-47.0) % MCV 89.1 (81.0-99.0) fL MCH 30.5 (27.0-31.0) pg MCHC 34.3 (33.0-37.0) g/dL RDW 15.9 H (11.5-14.5) % Plt Count 134 (130-400) K/uL MPV 8.4 (7.2-11.7) fL Neut % (Auto) 81.9 H (50.0-75.0) % Lymph % (Auto) 13.8 L (20.0-40.0) % [place] % (Auto) 3.6 (0.0-10.0) % Eos % (Auto) 0.2 (0.0-4.0) % Baso % (Auto) 0.5 (0.0-2.0) % Neut # (Auto) 5.7 (1.8-7.0) K/uL Lymph # (Auto) 1.0 (1.0-4.3) K/uL [place] # (Auto) 0.3 (0.0-0.8) K/uL Eos # (Auto) 0.0 (0.0-0.7) K/uL Baso # (Auto) 0.0 (0.0-0.2) K/uL APTT 121 H* D (21-34) SECONDS Puncture Site pCO2 (35-45) mm/Hg pO2 (80-100) mm/Hg HCO3 (21-28) mmol/L ABG pH (7.35-7.45) ABG Total CO2 (22-28) mmol/L ABG O2 Saturation (95-98) % ABG Base Excess (-2.0-3.0) mmol/L ABG Hemoglobin (11.7-17.4) g/dL ABG Carboxyhemoglobin (0.5-1.5) % POC ABG HHb (Measured) (0.0-5.0) % ABG Methemoglobin (0.0-3.0) % Kevon Test A-a O2 Difference mm/Hg Respiratory Index Hgb O2 Saturation (95.0-98.0) % Vent Mode Mechanical Rate FiO2 % Tidal Volume PEEP Sodium 144 (132-148) mmol/L Potassium 3.0 L (3.6-5.2) mmol/L Chloride 105 (98-107) mmol/L Carbon Dioxide 30 (22-30) mmol/L Anion Gap 12 (10-20) BUN 45 H (7-17) mg/dL Creatinine 1.9 H (0.7-1.2) mg/dL Est GFR ( Amer) 34 Est GFR (Non-Af Amer) 28 POC Glucose (mg/dL) (65-110) mg/dL Random Glucose 306 H (65-105) mg/dL Calcium 7.0 L (8.6-10.4) mg/dl Phosphorus 2.1 L (2.5-4.5) mg/dL Magnesium 1.9 (1.6-2.3) mg/dL Total Bilirubin 0.6 (0.2-1.3) mg/dL AST 103 H D (14-36) U/L ALT 249 H D (9-52) U/L Alkaline Phosphatase 128 H D (38-126) U/L Total Protein 4.4 L (6.3-8.3) g/dL Albumin 2.1 L (3.5-5.0) g/dL Globulin 2.3 (2.2-3.9) gm/dL Albumin/Globulin Ratio 0.9 L (1.0-2.1) Stool Occult Blood (NEGATIVE) Proteinase 3 (PR3) (<1.0) AI Myeloperoxidase Ab (<1.0) AI 07/12/18 07/12/18 07/12/18 Range/Units 06:37 04:15 00:07 WBC (4.8-10.8) K/uL RBC (3.80-5.20) Mil/uL Hgb (11.0-16.0) g/dL Hct (34.0-47.0) % MCV (81.0-99.0) fL MCH (27.0-31.0) pg MCHC (33.0-37.0) g/dL RDW (11.5-14.5) % Plt Count (130-400) K/uL MPV (7.2-11.7) fL Neut % (Auto) (50.0-75.0) % Lymph % (Auto) (20.0-40.0) % [place] % (Auto) (0.0-10.0) % Eos % (Auto) (0.0-4.0) % Baso % (Auto) (0.0-2.0) % Neut # (Auto) (1.8-7.0) K/uL Lymph # (Auto) (1.0-4.3) K/uL [place] # (Auto) (0.0-0.8) K/uL Eos # (Auto) (0.0-0.7) K/uL Baso # (Auto) (0.0-0.2) K/uL APTT 216 H* D (21-34) SECONDS Puncture Site Rr pCO2 43 (35-45) mm/Hg pO2 111 H (80-100) mm/Hg HCO3 28.4 H (21-28) mmol/L ABG pH 7.44 (7.35-7.45) ABG Total CO2 30.5 H (22-28) mmol/L ABG O2 Saturation 98.5 H (95-98) % ABG Base Excess 4.5 H (-2.0-3.0) mmol/L ABG Hemoglobin 11.1 L (11.7-17.4) g/dL ABG Carboxyhemoglobin 1.1 (0.5-1.5) % POC ABG HHb (Measured) 1.5 (0.0-5.0) % ABG Methemoglobin 0.9 (0.0-3.0) % Kevon Test Pos A-a O2 Difference 263.0 mm/Hg Respiratory Index 2.4 Hgb O2 Saturation 96.5 (95.0-98.0) % Vent Mode Prvc Mechanical Rate 12 FiO2 60.0 % Tidal Volume 450 PEEP 5 Sodium (132-148) mmol/L Potassium (3.6-5.2) mmol/L Chloride (98-107) mmol/L Carbon Dioxide (22-30) mmol/L Anion Gap (10-20) BUN (7-17) mg/dL Creatinine (0.7-1.2) mg/dL Est GFR ( Amer) Est GFR (Non-Af Amer) POC Glucose (mg/dL) 345 H (65-110) mg/dL Random Glucose (65-105) mg/dL Calcium (8.6-10.4) mg/dl Phosphorus (2.5-4.5) mg/dL Magnesium (1.6-2.3) mg/dL Total Bilirubin (0.2-1.3) mg/dL AST (14-36) U/L ALT (9-52) U/L Alkaline Phosphatase (38-126) U/L Total Protein (6.3-8.3) g/dL Albumin (3.5-5.0) g/dL Globulin (2.2-3.9) gm/dL Albumin/Globulin Ratio (1.0-2.1) Stool Occult Blood (NEGATIVE) Proteinase 3 (PR3) (<1.0) AI Myeloperoxidase Ab (<1.0) AI 07/11/18 07/10/18 07/08/18 Range/Units 23:39 08:45 23:06 WBC (4.8-10.8) K/uL RBC (3.80-5.20) Mil/uL Hgb (11.0-16.0) g/dL Hct (34.0-47.0) % MCV (81.0-99.0) fL MCH (27.0-31.0) pg MCHC (33.0-37.0) g/dL RDW (11.5-14.5) % Plt Count (130-400) K/uL MPV (7.2-11.7) fL Neut % (Auto) (50.0-75.0) % Lymph % (Auto) (20.0-40.0) % [place] % (Auto) (0.0-10.0) % Eos % (Auto) (0.0-4.0) % Baso % (Auto) (0.0-2.0) % Neut # (Auto) (1.8-7.0) K/uL Lymph # (Auto) (1.0-4.3) K/uL [place] # (Auto) (0.0-0.8) K/uL Eos # (Auto) (0.0-0.7) K/uL Baso # (Auto) (0.0-0.2) K/uL APTT (21-34) SECONDS Puncture Site pCO2 (35-45) mm/Hg pO2 (80-100) mm/Hg HCO3 (21-28) mmol/L ABG pH (7.35-7.45) ABG Total CO2 (22-28) mmol/L ABG O2 Saturation (95-98) % ABG Base Excess (-2.0-3.0) mmol/L ABG Hemoglobin (11.7-17.4) g/dL ABG Carboxyhemoglobin (0.5-1.5) % POC ABG HHb (Measured) (0.0-5.0) % ABG Methemoglobin (0.0-3.0) % Kevon Test A-a O2 Difference mm/Hg Respiratory Index Hgb O2 Saturation (95.0-98.0) % Vent Mode Mechanical Rate FiO2 % Tidal Volume PEEP Sodium (132-148) mmol/L Potassium (3.6-5.2) mmol/L Chloride (98-107) mmol/L Carbon Dioxide (22-30) mmol/L Anion Gap (10-20) BUN (7-17) mg/dL Creatinine (0.7-1.2) mg/dL Est GFR ( Amer) Est GFR (Non-Af Amer) POC Glucose (mg/dL) 246 H (65-110) mg/dL Random Glucose (65-105) mg/dL Calcium (8.6-10.4) mg/dl Phosphorus (2.5-4.5) mg/dL Magnesium (1.6-2.3) mg/dL Total Bilirubin (0.2-1.3) mg/dL AST (14-36) U/L ALT (9-52) U/L Alkaline Phosphatase (38-126) U/L Total Protein (6.3-8.3) g/dL Albumin (3.5-5.0) g/dL Globulin (2.2-3.9) gm/dL Albumin/Globulin Ratio (1.0-2.1) Stool Occult Blood (NEGATIVE) Proteinase 3 (PR3) <1.0 (<1.0) AI Myeloperoxidase Ab <1.0 (<1.0) AI Laboratory Results - last 24 hr 07/08/18 07/10/18 07/11/18 23:06 08:45 23:39 WBC RBC Hgb Hct MCV MCH MCHC RDW Plt Count MPV Neut % (Auto) Lymph % (Auto) [place] % (Auto) Eos % (Auto) Baso % (Auto) Neut # (Auto) Lymph # (Auto) [place] # (Auto) Eos # (Auto) Baso # (Auto) APTT Puncture Site pCO2 pO2 HCO3 ABG pH ABG Total CO2 ABG O2 Saturation ABG Base Excess ABG Hemoglobin ABG Carboxyhemoglobin POC ABG HHb (Measured) ABG Methemoglobin Kevon Test A-a O2 Difference Respiratory Index Hgb O2 Saturation Vent Mode Mechanical Rate FiO2 Tidal Volume PEEP Sodium Potassium Chloride Carbon Dioxide Anion Gap BUN Creatinine Est GFR ( Amer) Est GFR (Non-Af Amer) POC Glucose (mg/dL) 246 H Random Glucose Calcium Phosphorus Magnesium Total Bilirubin AST ALT Alkaline Phosphatase Total Protein Albumin Globulin Albumin/Globulin Ratio Stool Occult Blood Proteinase 3 (PR3) <1.0 Myeloperoxidase Ab <1.0 07/12/18 07/12/18 07/12/18 00:07 04:15 06:37 WBC RBC Hgb Hct MCV MCH MCHC RDW Plt Count MPV Neut % (Auto) Lymph % (Auto) [place] % (Auto) Eos % (Auto) Baso % (Auto) Neut # (Auto) Lymph # (Auto) [place] # (Auto) Eos # (Auto) Baso # (Auto) APTT 216 H* D Puncture Site Rr pCO2 43 pO2 111 H HCO3 28.4 H ABG pH 7.44 ABG Total CO2 30.5 H ABG O2 Saturation 98.5 H ABG Base Excess 4.5 H ABG Hemoglobin 11.1 L ABG Carboxyhemoglobin 1.1 POC ABG HHb (Measured) 1.5 ABG Methemoglobin 0.9 Kevon Test Pos A-a O2 Difference 263.0 Respiratory Index 2.4 Hgb O2 Saturation 96.5 Vent Mode Prvc Mechanical Rate 12 FiO2 60.0 Tidal Volume 450 PEEP 5 Sodium Potassium Chloride Carbon Dioxide Anion Gap BUN Creatinine Est GFR ( Amer) Est GFR (Non-Af Amer) POC Glucose (mg/dL) 345 H Random Glucose Calcium Phosphorus Magnesium Total Bilirubin AST ALT Alkaline Phosphatase Total Protein Albumin Globulin Albumin/Globulin Ratio Stool Occult Blood Proteinase 3 (PR3) Myeloperoxidase Ab 07/12/18 07/12/18 07/12/18 07:47 07:47 07:47 WBC 7.0 RBC 2.84 L Hgb 8.7 L Hct 25.3 L MCV 89.1 MCH 30.5 MCHC 34.3 RDW 15.9 H Plt Count 134 MPV 8.4 Neut % (Auto) 81.9 H Lymph % (Auto) 13.8 L [place] % (Auto) 3.6 Eos % (Auto) 0.2 Baso % (Auto) 0.5 Neut # (Auto) 5.7 Lymph # (Auto) 1.0 [place] # (Auto) 0.3 Eos # (Auto) 0.0 Baso # (Auto) 0.0 APTT 121 H* D Puncture Site pCO2 pO2 HCO3 ABG pH ABG Total CO2 ABG O2 Saturation ABG Base Excess ABG Hemoglobin ABG Carboxyhemoglobin POC ABG HHb (Measured) ABG Methemoglobin Kevon Test A-a O2 Difference Respiratory Index Hgb O2 Saturation Vent Mode Mechanical Rate FiO2 Tidal Volume PEEP Sodium 144 Potassium 3.0 L Chloride 105 Carbon Dioxide 30 Anion Gap 12 BUN 45 H Creatinine 1.9 H Est GFR ( Amer) 34 Est GFR (Non-Af Amer) 28 POC Glucose (mg/dL) Random Glucose 306 H Calcium 7.0 L Phosphorus 2.1 L Magnesium 1.9 Total Bilirubin 0.6 AST 103 H D ALT 249 H D Alkaline Phosphatase 128 H D Total Protein 4.4 L Albumin 2.1 L Globulin 2.3 Albumin/Globulin Ratio 0.9 L Stool Occult Blood Proteinase 3 (PR3) Myeloperoxidase Ab 07/12/18 07/12/18 07/12/18 11:17 14:46 17:53 WBC RBC Hgb Hct MCV MCH MCHC RDW Plt Count MPV Neut % (Auto) Lymph % (Auto) [place] % (Auto) Eos % (Auto) Baso % (Auto) Neut # (Auto) Lymph # (Auto) [place] # (Auto) Eos # (Auto) Baso # (Auto) APTT 58 H D Puncture Site pCO2 pO2 HCO3 ABG pH ABG Total CO2 ABG O2 Saturation ABG Base Excess ABG Hemoglobin ABG Carboxyhemoglobin POC ABG HHb (Measured) ABG Methemoglobin Kevon Test A-a O2 Difference Respiratory Index Hgb O2 Saturation Vent Mode Mechanical Rate FiO2 Tidal Volume PEEP Sodium Potassium Chloride Carbon Dioxide Anion Gap BUN Creatinine Est GFR ( Amer) Est GFR (Non-Af Amer) POC Glucose (mg/dL) 282 H 326 H Random Glucose Calcium Phosphorus Magnesium Total Bilirubin AST ALT Alkaline Phosphatase Total Protein Albumin Globulin Albumin/Globulin Ratio Stool Occult Blood Proteinase 3 (PR3) Myeloperoxidase Ab EKG/Cardiology Studies: Cardiology / EKG Studies 07/11/18 18:09 ELECTROCARDIOGRAM Stat Comment: Mode Of Transportation: Reason For Exam: tachy Attending/Attestation - Attestation I have personally seen and examined this patient.: Yes I have fully participated in the care of the patient.: Yes I have reviewed all pertinent clinical information: Yes Notes (Text): 07/12/18 18:37 patient seen and examined in the intensive care unit Remained intubated on ventilatory support Improving urine output Continue antibiotics wean as tolerated
--- NOTE | 2018-07-12 15:07 | CP.PCM.PN ---
Subjective - Date & Time of Evaluation Date of Evaluation: 07/12/18 Time of Evaluation: 15:04 - Subjective Subjective: Nephrology Consultation Note Assessment: critical Acute Kidney Injury (N17.9) likely due to ATN, r/o GN (so far w/up emery) septic shock, acute respi failure, UTI/aspiration pneumonitis and pulm edemaf Diabetic chronic Kidney Disease (E11.22) Hypertensive Chronic Kidney Disease (I12.9) Chronic Kidney Disease (N18.3) Stage 3 with 740 mg proteinuria (R80.9) likely due to DM/HTN, baseline cr 1.2 Anemia (D64.9), Hyperphosphatemia (E83.39), Hypocalcemia ? hyperthyroidism. V tach and cardiac arrest hypokalemia apical thrombus with sys CHF LVEf 40% Plan plan for trial of diuretics as lasix, responding well, no further need of dialysis. can remove dialysis catheter from renal perspective Maintain hemodynamics stable. Avoid hypotension. Patient not on ACEI/ARB due to recent NEHA Monitor Input/Output, daily weights and renal function with basic metabolic panel started weekly Vit D supplement lytes as needed Check GN work up as LIA, Anti dsDNA, ANCA (MPO and WI-3), Anti GBM antibody Anemia work up with TSAT/Ferritin/Vitamin B12/folate Check for 25-OH vitamin D, iPTH work up for adrenal adenoma as outpt. work up for suppressed TSH as per primary team/endocrine Dose meds/antibiotics for reduced GFR. Avoid fleets enema/magnesium based laxatives. Avoid nephrotoxins/NSAIDs/ iodinated contrast (unless needed emergently) Glycemic control Further work up for as per primary team Thanks for allowing me to participate in care of your patient. Will follow patient with you. Please call if any Qs. d/w family and team. Dr Enrique Richards Office: [phone] Subjective: Noted events overnight. Patients intubated/sedated. on 70% FiO2. s/p V Tach and cardiac arrest Physical Examination: General Appearance: in no acute respiratory distress, ill appearing Vitals reviewed and noted as below Head; Atraumatic, normocephalic ENT: orally intubated Neck; supple no lymphadenopathy, no thyromegaly or bruit Lungs: Normal respiratory rate/effort. Breath sounds bilateral with wheeze and rales Heart: Increasedl rate. s1s2 normal. No rub or gallop. Extremities: pedal edema +. No varicose veins Neurological: Patient is sedated Skin: Warm and dry. Normal turgor. No rash. Palpitation: Normal elasticity for age Abdomen: Abdomen is soft. Bowel sounds +. There is no abdominal tenderness, no guarding/rigidity no organomegaly Psych: unable MSK: no joint tenderness or swelling. Digits and nails normal, no deformity : kidney or bladder not palpable. has mcintyre + Access: [facility] Labs/imaging reviewed. Past medical history, past surgical history, family history, social history, allergy reviewed and noted as below Family hx: no hx of CKD. Rest non-contributory work up: 1.4 mm left adrenal adenoma uA 2+ protein 2+ blood c3/c4 normal. HIV/Hep B and C neg TSH <0.02 740 Objective - Vital Signs/Intake and Output Vital Signs (last 24 hours): Temp Pulse Resp BP Pulse Ox 99.1 F 113 H 14 139/70 100 07/12/18 12:00 07/12/18 14:13 07/12/18 14:13 07/12/18 14:13 07/12/18 14:13 Intake and Output: 07/12/18 07/12/18 06:59 18:59 Intake Total 1340.2 777.7 Output Total 1515 1525 Balance -174.8 -747.3 - Medications Medications: Current Medications Acetaminophen (Tylenol 325mg Tab) 650 mg PO Q6H PRN PRN Reason: Pain, moderate (4-7) Last Admin: 07/10/18 00:00 Dose: 650 mg Albuterol/Ipratropium (Duoneb 3 Mg/0.5 Mg (3 Ml) Ud) 3 ml INH RQ4 [facility] Last Admin: 07/12/18 11:30 Dose: Not Given Amiodarone HCl (Cordarone) 200 mg PO DAILY [facility] Last Admin: 07/12/18 09:26 Dose: 200 mg Aspirin (Ecotrin) 81 mg PO DAILY [facility] Last Admin: 07/12/18 09:26 Dose: 81 mg Ergocalciferol (Drisdol 50,000 Intl Units Cap) 1 cap PO Q7D [facility] Last Admin: 07/11/18 14:50 Dose: 1 cap Furosemide (Lasix) 40 mg IVP BID [facility] Last Admin: 07/12/18 09:26 Dose: 40 mg Hydrocortisone Sodium Succinate (Solu-Cortef) 50 mg IV DAILY [facility] Meropenem 500 mg/ Sodium (Chloride) 100 mls @ 100 mls/hr IVPB Q12H [facility]; Protocol Last Admin: 07/12/18 11:31 Dose: 100 mls/hr Heparin Sodium/Sodium Chloride (Heparin 34239 Units/250ml 1/2 Normal Saline) 25,000 units in 250 mls @ 10.207 mls/hr IV .Q24H PRN; Protocol PRN Reason: PROTOCOL Last Titration: 07/12/18 09:20 Dose: 9 units/kg/hr, 5.103 mls/hr Diltiazem HCl 125 mg/ Sodium (Chloride) 125 mls @ 5 mls/hr IV .Q24H [facility]; Protocol Last Titration: 07/12/18 13:00 Dose: 7.5 mg/hr, 7.5 mls/hr Insulin Aspart (Novolog) 0 unit SC Q6 [facility]; Protocol Last Admin: 07/12/18 12:08 Dose: 6 u Insulin Glargine (Lantus) 10 unit SC DAILY [facility] Lactobacillus Acidophilus (Bacid Acidophilus) 1 cap PO Q12H [facility] Last Admin: 07/12/18 09:23 Dose: 1 cap Methimazole (Tapazole) 10 mg PO TID [facility] Last Admin: 07/12/18 14:36 Dose: 10 mg Ondansetron HCl (Zofran Inj) 4 mg IVP Q6H PRN PRN Reason: Nausea/Vomiting Last Admin: 07/08/18 13:06 Dose: 4 mg Pantoprazole Sodium (Protonix Susp) 40 mg PO BID [facility] Last Admin: 07/12/18 09:27 Dose: 40 mg - Labs Labs: 07/12/18 07:47 07/12/18 07:47 PT 36.4 SECONDS (9.7-12.2) H 07/11/18 09:40 INR 3.3 07/11/18 09:40 APTT 58 SECONDS (21-34) H D 07/12/18 14:46
--- NOTE | 2018-07-12 17:27 | CP.PCM.PN ---
Subjective - Date & Time of Evaluation Date of Evaluation: 07/12/18 Time of Evaluation: 08:00 - Subjective Subjective: events noted tachycardic afeb sedated + hyperthyroid , apical thrombus Objective - Vital Signs/Intake and Output Vital Signs (last 24 hours): Temp Pulse Resp BP Pulse Ox 100.6 F H 101 H 11 L 132/79 99 07/12/18 16:10 07/12/18 16:00 07/12/18 16:00 07/12/18 15:14 07/12/18 16:00 Intake and Output: 07/12/18 07/12/18 06:59 18:59 Intake Total 1340.2 902.7 Output Total 1515 1950 Balance -174.8 -1047.3 - Medications Medications: Current Medications Acetaminophen (Tylenol 325mg Tab) 650 mg PO Q6H PRN PRN Reason: Pain, moderate (4-7) Last Admin: 07/12/18 16:10 Dose: 650 mg Acetaminophen (Tylenol 325mg Tab) 650 mg PO Q6 PRN PRN Reason: Fever >100.4 F Albuterol/Ipratropium (Duoneb 3 Mg/0.5 Mg (3 Ml) Ud) 3 ml INH RQ4 [facility] Last Admin: 07/12/18 11:30 Dose: Not Given Amiodarone HCl (Cordarone) 200 mg PO DAILY [facility] Last Admin: 07/12/18 09:26 Dose: 200 mg Aspirin (Ecotrin) 81 mg PO DAILY [facility] Last Admin: 07/12/18 09:26 Dose: 81 mg Ergocalciferol (Drisdol 50,000 Intl Units Cap) 1 cap PO Q7D [facility] Last Admin: 07/11/18 14:50 Dose: 1 cap Furosemide (Lasix) 40 mg IVP BID [facility] Last Admin: 07/12/18 09:26 Dose: 40 mg Hydrocortisone Sodium Succinate (Solu-Cortef) 50 mg IV DAILY [facility] Meropenem 500 mg/ Sodium (Chloride) 100 mls @ 100 mls/hr IVPB Q12H [facility]; Protocol Last Admin: 07/12/18 11:31 Dose: 100 mls/hr Heparin Sodium/Sodium Chloride (Heparin 10428 Units/250ml 1/2 Normal Saline) 25,000 units in 250 mls @ 10.207 mls/hr IV .Q24H PRN; Protocol PRN Reason: PROTOCOL Last Titration: 07/12/18 09:20 Dose: 9 units/kg/hr, 5.103 mls/hr Diltiazem HCl 125 mg/ Sodium (Chloride) 125 mls @ 5 mls/hr IV .Q24H [facility]; Protocol Last Titration: 07/12/18 13:00 Dose: 7.5 mg/hr, 7.5 mls/hr Insulin Aspart (Novolog) 0 unit SC Q6 [facility]; Protocol Last Admin: 07/12/18 12:08 Dose: 6 u Insulin Glargine (Lantus) 10 unit SC DAILY [facility] Lactobacillus Acidophilus (Bacid Acidophilus) 1 cap PO Q12H [facility] Last Admin: 07/12/18 09:23 Dose: 1 cap Methimazole (Tapazole) 10 mg PO TID [facility] Last Admin: 07/12/18 14:36 Dose: 10 mg Ondansetron HCl (Zofran Inj) 4 mg IVP Q6H PRN PRN Reason: Nausea/Vomiting Last Admin: 07/08/18 13:06 Dose: 4 mg Pantoprazole Sodium (Protonix Susp) 40 mg PO BID [facility] Last Admin: 07/12/18 09:27 Dose: 40 mg - Labs Labs: 07/12/18 07:47 07/12/18 07:47 PT 36.4 SECONDS (9.7-12.2) H 07/11/18 09:40 INR 3.3 07/11/18 09:40 APTT 58 SECONDS (21-34) H D 07/12/18 14:46 - Constitutional Appears: Non-toxic, Confused, Chronically Ill - Head Exam Head Exam: NORMOCEPHALIC Additional comments: ETT+ - Eye Exam Eye Exam: PERRL - ENT Exam ENT Exam: Mucous Membranes Dry - Neck Exam Neck Exam: absent: Lymphadenopathy - Respiratory Exam Respiratory Exam: Decreased Breath Sounds - Cardiovascular Exam Cardiovascular Exam: REGULAR RHYTHM Assessment and Plan (1) NEHA (acute kidney injury) Status: Acute (2) Acute renal failure Status: Acute (3) Acute respiratory failure Status: Acute (4) Aspiration pneumonia Status: Acute (5) Septic shock Status: Acute (6) Urinary tract infection Status: Acute (7) Diabetes mellitus Status: Chronic - Assessment and Plan (Free Text) Assessment: no new positive cultures cont empiric rx
--- NOTE | 2018-07-12 19:05 | PN ---
DATE: 07/12/2018 ENDO FOLLOWUP NOTE SUBJECTIVE: This is a 52-year-old female with overt hyperthyroidism and also intercurrent IV steroid therapy as given with supervening hyperglycemic accelerations thereof. LABORATORY DATA: Her repeat chemistry showed a BUN of 45, sodium 144, potassium 3, chloride 105, CO2 of 30, glucose 306, and creatinine 1.9. Her glucose levels have ranged from 246 to 345 mg/dL. Her latest thyroid study showed a free T4 of 3.56 with a TSH of less than 0.02. ASSESSMENT AND PLAN: So at this time, we will continue the Tapazole given as 10 mg t.i.d. after meals as ordered. We will obtain serial chemistries and supplement accordingly as needed. We will also continue the low dose correction scale using regular insulin as ordered. We will hold off outpatient diabetic management with insulin therapy at this time as this may be a temporary glycemic accelerations from the intercurrent steroid therapy as given. We will follow and advise accordingly. Sheyla Gayle MD
[2018-07-12] MEDS: Dexmedetomidine Hydrochloride 200 MCG in Sodium Chloride 0.9% 48 ML IV PRN (20:39)
[2018-07-12] MEDS: (Lantus) Insulin Glargine, Recombinant SC SCH (20:44)
--- NOTE | 2018-07-12 21:32 | CP.PCM.PN ---
Subjective - Date & Time of Evaluation Date of Evaluation: 07/12/18 Time of Evaluation: 18:45 - Subjective Subjective: Medical attending note Patient seen, examined, patient remains intubated. Patient is off pressors. Unable to review of systems secondary to clinical condition. Family not present at bedside. Objective - Vital Signs/Intake and Output Vital Signs (last 24 hours): Temp Pulse Resp BP Pulse Ox 100.6 F H 100 H 10 L 129/64 100 07/12/18 16:10 07/12/18 19:13 07/12/18 19:13 07/12/18 19:13 07/12/18 19:13 Intake and Output: 07/12/18 07/13/18 18:59 06:59 Intake Total 1027.7 62.5 Output Total 2350 Balance -1322.3 62.5 - Medications Medications: Current Medications Acetaminophen (Tylenol 325mg Tab) 650 mg PO Q6H PRN PRN Reason: Pain, moderate (4-7) Last Admin: 07/12/18 16:10 Dose: 650 mg Acetaminophen (Tylenol 325mg Tab) 650 mg PO Q6 PRN PRN Reason: Fever >100.4 F Albuterol/Ipratropium (Duoneb 3 Mg/0.5 Mg (3 Ml) Ud) 3 ml INH RQ4 [facility] Last Admin: 07/12/18 21:02 Dose: 3 ml Amiodarone HCl (Cordarone) 200 mg PO DAILY [facility] Last Admin: 07/12/18 09:26 Dose: 200 mg Aspirin (Ecotrin) 81 mg PO DAILY [facility] Last Admin: 07/12/18 09:26 Dose: 81 mg Ergocalciferol (Drisdol 50,000 Intl Units Cap) 1 cap PO Q7D [facility] Last Admin: 07/11/18 14:50 Dose: 1 cap Furosemide (Lasix) 40 mg IVP BID [facility] Last Admin: 07/12/18 17:25 Dose: 40 mg Hydrocortisone Sodium Succinate (Solu-Cortef) 50 mg IV DAILY [facility] Meropenem 500 mg/ Sodium (Chloride) 100 mls @ 100 mls/hr IVPB Q12H [facility]; Protocol Last Admin: 07/12/18 11:31 Dose: 100 mls/hr Heparin Sodium/Sodium Chloride (Heparin 36941 Units/250ml 1/2 Normal Saline) 25,000 units in 250 mls @ 10.207 mls/hr IV .Q24H PRN; Protocol PRN Reason: PROTOCOL Last Titration: 07/12/18 09:20 Dose: 9 units/kg/hr, 5.103 mls/hr Diltiazem HCl 125 mg/ Sodium (Chloride) 125 mls @ 5 mls/hr IV .Q24H [facility]; Protocol Last Titration: 07/12/18 13:00 Dose: 7.5 mg/hr, 7.5 mls/hr Dexmedetomidine HCl 200 mcg/ (Sodium Chloride) 50 mls @ 2.79 mls/hr IV TITR PRN; Protocol PRN Reason: Sedation Last Admin: 07/12/18 20:39 Dose: 0.2 mcg/kg/hr, 2.79 mls/hr Insulin Aspart (Novolog) 0 unit SC Q6 [facility]; Protocol Last Admin: 07/12/18 18:13 Dose: 8 u Insulin Glargine (Lantus) 10 unit SC DAILY [facility] Last Admin: 07/12/18 20:44 Dose: 10 units Lactobacillus Acidophilus (Bacid Acidophilus) 1 cap PO Q12H [facility] Last Admin: 07/12/18 20:48 Dose: 1 cap Methimazole (Tapazole) 10 mg PO TID [facility] Last Admin: 07/12/18 17:25 Dose: 10 mg Ondansetron HCl (Zofran Inj) 4 mg IVP Q6H PRN PRN Reason: Nausea/Vomiting Last Admin: 07/08/18 13:06 Dose: 4 mg Pantoprazole Sodium (Protonix Susp) 40 mg PO BID [facility] Last Admin: 07/12/18 17:25 Dose: 40 mg - Labs Labs: 07/12/18 07:47 07/12/18 07:47 PT 36.4 SECONDS (9.7-12.2) H 07/11/18 09:40 INR 3.3 07/11/18 09:40 APTT 58 SECONDS (21-34) H D 07/12/18 14:46 - Constitutional Appears: Chronically Ill - Head Exam Head Exam: NORMAL INSPECTION Additional comments: OGT intubated on vent - Eye Exam Eye Exam: PERRL. absent: Nystagmus, Scleral icterus - ENT Exam ENT Exam: Mucous Membranes Dry - Respiratory Exam Respiratory Exam: Decreased Breath Sounds, Rales, NORMAL BREATHING PATTERN Additional comments: Intubated on vent - Cardiovascular Exam Cardiovascular Exam: Tachycardia, +S1, +S2 - GI/Abdominal Exam GI & Abdominal Exam: Soft, Normal Bowel Sounds. absent: Distended, Firm, Guarding, Rigid, Tenderness, Rebound - Extremities Exam Extremities Exam: Pedal Edema (Trace pitting edema bilaterally) - Skin Skin Exam: Dry, Intact, Normal Color, Warm Assessment and Plan (1) Septic shock Status: Acute (2) Acute respiratory failure Status: Acute (3) Urinary tract infection Status: Acute (4) Acute renal failure Status: Acute (5) Aspiration pneumonia Status: Acute (6) Diabetes mellitus Status: Chronic (7) Ventricular arrhythmia Status: Acute (8) Hyperthyroidism Status: Acute (9) Anemia Status: Acute (10) Prophylactic measure Status: Acute Attending/Attestation - Attestation I have personally seen and examined this patient.: Yes I have fully participated in the care of the patient.: Yes I have reviewed all pertinent clinical information, including history, physical exam and plan: Yes Notes (Text): 1) Septic Shock Assessment/Plan * Infectious Disease (Dr. Brock) on case-->help appreciated * Criteria: leukocytosis, tachycardia * Source: aspiration pneumonia and urinary tract infection * 07/07/18: Urine: E. Coli * 07/09/18: Urine: No growth * 07/07/18: blood culture: no growth after 5 days X2 * 07/09/18 Blood culture: no growth after 3 days X2 * MRSA not detected * Meropenem 500mg IV Q12 (active since 05/20) * Off pressors, On fentanyl 2) Acute Respiratory Failure Pulmonary Edema Assessment/Plan * Intubated * Solcortef 50mg qV Qdaily * Duonebs RQ6H PRN wheezing * Duonebs RQ6H * Sputum culture: yeast * MRSA screen pending 3) Ventricular Tachycardia Nonstemi Apical Thrombus Assessment/Plan * Code Blue 07/10: SVT==>VT required amiodarone, magnesium, one shock delivered, ordered for ekg, lizette, echo, and cardiology evaluation * Cardiology Dr Francisco on case help appreciated * When patient is stabilized will need further cardiac workup * Echocardiogram (07/07/18): left ventricle systolic function is borderline, ejection fraction is 45-50%, no aortic regurgitation is present, mitral regurgitation is mild. Mild tricuspid regurgitation. mild pulmonary hypertension, mild pulmonic valvular regurgitation * Contrast echo: Large apical hypokinesis a large 30 x 20 mm soft tissue apical sessile mass suggestive of thrombus overall fraction 40%. Obtain a HUBERT or/consider stress card myopathy if coronary disease is excluded further findings per report * Amiodarone 200 mg once a day * Monitor electrolytes * Patient to start heparin drip in light of apical thrombus * Cardizem drip started on July 12 4) Urinary Tract Infection Assessment/Plan * Infectious disease on board help appreciated * 07/07/18: Urine: E. Coli * 07/09/18: Urine: No growth * Meropenem 500mg IV Q12 (active since 07/10/18) 4) Aspiration Pneumonia Assessment/Plan * Patient is on meropenem since 07/10/2018 * Mycoplasma negative * Legionella was negative * Influenza negative * HIV negative 5) Diabetes Assessment/Plan * a1c: 7.8 * hypoglycemic protocol * novolog unit subq * Lantus 10 units subcutaneous at bedtime 6) Acute on Chronic Renal Failure Assessment/Plan * Nephrology (Dr. Hyde) on board--> help appreciated * Second dialysis cancelled secondary to code blue earlier July 10 * We'll continue diuresis * Patient will likely not need dialysis. * On Lasix 40 mg IV twice a day 7) Hyperthyroidism? Low TSH, and Free T4 Assessment/Plan * Note Thyroid studies taken before amiodarone was given * Patient does not have prior thyroid history * Endocrinology (Dr. Gayle) on board help appreciated * Start Tapazole 10mg PO TID * Monitor LFTs 8) Anemia Assessment/Plan * iron normal, TIBC low, iron sat normal, ferritin normal * pending stool occult blood and reticulocte count * B12 normal * Folate Normal 9) Transminitis * related to sepsis and also patient is on amiodarone * Hepatitis serology negative 10) vitamin D deficiency Assessment plan * 50,000 international units once a week for at least 8-12 weeks started on July 11 11) Prophylactic measure * Protonix 40mg IV Q12H * Precedex drip * Cardizem drip * Heparin drip * Heparin drip * off pressors * off Fentanyl drip
[2018-07-13 00:01] LABS: ANCA SCREEN NEGATIVE (NEGATIVE)
[2018-07-13] MEDS: (Novolog) Insulin Aspart, Recombinant 100 u/ml 10 ml vial SC SCH ×4 (00:53→18:25)
[2018-07-13] MEDS: Meropenem 500 MG in Sodium Chloride 0.9% 100 ML IVPB SCH ×2 (00:54→12:35)
[2018-07-13] MEDS: Heparin25000 units/250ml 1/2NS 25,000 UNITS/250 ML BAG IV PRN (02:00)
[2018-07-13] MEDS: Albuterol-Ipratrop 3 mg / 0.5 (3 ml) UD INH SCH ×6 (03:27→23:39)
[2018-07-13] MEDS: Dexmedetomidine Hydrochloride 200 MCG in Sodium Chloride 0.9% 48 ML IV PRN ×2 (04:20→21:30)
[2018-07-13 04:58] LABS: ABG ALLEN TEST POS; ARTERIAL BLOOD GAS HCO3 34.8 mmol/L (21-28); ARTERIAL BLOOD GAS HEMOGLOBIN 7.9 g/dL (11.7-17.4); ARTERIAL BLOOD GAS O2 SAT 98.8 % (95-98); ARTERIAL BLOOD GAS PCO2 32 mm/Hg (35-45); ARTERIAL BLOOD GAS PH 7.64 (7.35-7.45); ARTERIAL BLOOD GAS PO2 94 mm/Hg (80-100); ARTERIAL BLOOD GAS TCO2 35.4 mmol/L (22-28)
[2018-07-13 06:46] LABS: BASO % 0.3 % (0.0-2.0); EOS # 0.2 K/uL (0.0-0.7); EOS % 2.1 % (0.0-4.0); HEMOGLOBIN 8.8 g/dL (11.0-16.0); LYMPH # 2.6 K/uL (1.0-4.3); LYMPH % 23.7 % (20.0-40.0); MEAN CELL VOLUME 88.8 fL (81.0-99.0); MEAN CORPUSCULAR HGB CONC 33.8 g/dL (33.0-37.0); MEAN PLATELET VOLUME 8.9 fL (7.2-11.7); MONO # 0.6 K/uL (0.0-0.8); MONO % 5.9 % (0.0-10.0); NEUT # 7.5 K/uL (1.8-7.0); NRBC % 0.6 % (0.0-2.0); RBC 2.95 Mil/uL (3.80-5.20); RED CELL DISTRIBUTION WIDTH 15.3 % (11.5-14.5)
[2018-07-13 06:48] LABS: INR 1.5; PROTHROMBIN TIME 16.1 SECONDS (9.7-12.2)
[2018-07-13 07:19] LABS: ALB/GLOB RATIO 0.9 (1.0-2.1); ALBUMIN 2.3 g/dL (3.5-5.0); ALT/SGPT 175 U/L (9-52); AST/SGOT 78 U/L (14-36); BLOOD UREA NITROGEN 43 mg/dL (7-17); CALCIUM 7.5 mg/dl (8.6-10.4); GFR NON-AFRICAN AMERICAN 30
--- NOTE | 2018-07-13 08:39 | RAD ---
Date of service: 07/13/2018 HISTORY: s/p intubation COMPARISON: 07/12/2018. FINDINGS: Endotracheal tube terminates in the mid trachea. The nasogastric tube terminates in the stomach. LUNGS: The lungs are well inflated and clear. There is interval improved aeration in the lungs with residual mild pulmonary venous congestion. PLEURA: No significant pleural effusion identified, no pneumothorax apparent. CARDIOVASCULAR: Normal. OSSEOUS STRUCTURES: No significant abnormalities. VISUALIZED UPPER ABDOMEN: Normal. OTHER FINDINGS: None. IMPRESSION: Endotracheal tube terminates in the mid trachea. The nasogastric tube terminates in the stomach. Interval improved aeration in the lungs with residual pulmonary venous congestion.
[2018-07-13] MEDS: Magnesium Sulfate 1 gm/100 mL D5W IVPB SCH ×4 (08:43→10:41)
[2018-07-13] MEDS: Potassium Chloride 20 mEq/15 ml LIQ UD PO SCH ×2 (08:43→10:02)
[2018-07-13] MEDS: Potassium & Sodium Phosphate PO SCH ×3 (08:43→13:57)
[2018-07-13] MEDS: Lactobacillus Acidophilus 500 MU Cap PO SCH ×2 (08:43→21:00)
[2018-07-13] MEDS: (Lantus) Insulin Glargine, Recombinant SC SCH (09:00)
[2018-07-13] MEDS: Pantoprazole 40 mg Susp UD PO SCH ×2 (09:52→17:38)
[2018-07-13] MEDS ORDERED: Potassium Phosphate 15 MMOLE in Sodium Chloride 0.9% 250 ML IV ONE ×2 (10:00→14:30)
[2018-07-13] MEDS: Potassium Chloride 20 mEq/15 ml LIQ UD PEG SCH ×2 (10:25→15:19)
[2018-07-13] MEDS: Propranolol 1 mg/mL Inj IVP SCH ×3 (10:36→21:40)
[2018-07-13] MEDS ORDERED: Magnesium Sulfate 1 gm/100 mL D5W IVPB SCH (10:45)
[2018-07-13 11:19] LABS: ABG ALLEN TEST POS; ARTERIAL BLOOD GAS HCO3 31.6 mmol/L (21-28); ARTERIAL BLOOD GAS O2 SAT 97.4 % (95-98); ARTERIAL BLOOD GAS PCO2 37 mm/Hg (35-45); ARTERIAL BLOOD GAS PH 7.54 (7.35-7.45); ARTERIAL BLOOD GAS PO2 74 mm/Hg (80-100); ARTERIAL BLOOD GAS TCO2 32.7 mmol/L (22-28)
--- NOTE | 2018-07-13 13:32 | CP.PCM.PN ---
Subjective - Date & Time of Evaluation Date of Evaluation: 07/13/18 Time of Evaluation: 13:30 - Subjective Subjective: Nephrology Consultation Note Assessment: critical Acute Kidney Injury (N17.9) likely due to ATN, r/o GN (so far w/up emery) septic shock, acute respi failure, UTI/aspiration pneumonitis and pulm edemaf Diabetic chronic Kidney Disease (E11.22) Hypertensive Chronic Kidney Disease (I12.9) Chronic Kidney Disease (N18.3) Stage 3 with 740 mg proteinuria (R80.9) likely due to DM/HTN, baseline cr 1.2 Anemia (D64.9), Hyperphosphatemia (E83.39), Hypocalcemia ? hyperthyroidism. V tach and cardiac arrest hypokalemia, hypomag, hypophos apical thrombus with sys CHF LVEf 40% Plan no further need of dialysis. can remove dialysis catheter from renal perspective at the earliest Maintain hemodynamics stable. Avoid hypotension. Patient not on ACEI/ARB due to recent NEHA Monitor Input/Output, daily weights and renal function with basic metabolic panel started weekly Vit D supplement lytes as needed held lasix due to alkalemia. free water flushes with tube feed 250 mL 3 times a day d/w RN Check GN work up as LIA, Anti dsDNA, ANCA (MPO and NH-3), Anti GBM antibody Anemia work up with TSAT/Ferritin/Vitamin B12/folate Check for 25-OH vitamin D, iPTH work up for adrenal adenoma as outpt. work up for suppressed TSH as per primary team/endocrine Dose meds/antibiotics for reduced GFR. Avoid fleets enema/magnesium based laxatives. Avoid nephrotoxins/NSAIDs/ iodinated contrast (unless needed emergently) Glycemic control Further work up for as per primary team Thanks for allowing me to participate in care of your patient. Will follow patient with you. Please call if any Qs. d/w family and team. Dr Enrique Richards Office: [phone] Subjective: Noted events overnight. Patients intubated/sedated. on 70% FiO2. s/p V Tach and cardiac arrest Physical Examination: General Appearance: in no acute respiratory distress, ill appearing Vitals reviewed and noted as below Head; Atraumatic, normocephalic ENT: orally intubated Neck; supple no lymphadenopathy, no thyromegaly or bruit Lungs: Normal respiratory rate/effort. Breath sounds bilateral with basal rales Heart: Increasedl rate. s1s2 normal. No rub or gallop. Extremities: no pedal edema. No varicose veins Neurological: Patient is sedated Skin: Warm and dry. Normal turgor. No rash. Palpitation: Normal elasticity for age Abdomen: Abdomen is soft. Bowel sounds +. There is no abdominal tenderness, no guarding/rigidity no organomegaly Psych: unable MSK: no joint tenderness or swelling. Digits and nails normal, no deformity : kidney or bladder not palpable. has mcintyre + Access: [employer] Labs/imaging reviewed. Past medical history, past surgical history, family history, social history, allergy reviewed and noted as below Family hx: no hx of CKD. Rest non-contributory work up: 1.4 mm left adrenal adenoma uA 2+ protein 2+ blood c3/c4 normal. HIV/Hep B and C neg TSH <0.02 Objective - Vital Signs/Intake and Output Vital Signs (last 24 hours): Temp Pulse Resp BP Pulse Ox 100.6 F H 99 H 17 118/71 96 07/13/18 11:00 07/13/18 12:07 07/13/18 12:07 07/13/18 12:07 07/13/18 12:07 Intake and Output: 07/13/18 07/13/18 06:59 18:59 Intake Total 722.5 896.6 Output Total 1400 375 Balance -677.5 521.6 - Medications Medications: Current Medications Acetaminophen (Tylenol 325mg Tab) 650 mg PO Q6H PRN PRN Reason: Pain, moderate (4-7) Last Admin: 07/13/18 11:00 Dose: 650 mg Acetaminophen (Tylenol 325mg Tab) 650 mg PO Q6 PRN PRN Reason: Fever >100.4 F Albuterol/Ipratropium (Duoneb 3 Mg/0.5 Mg (3 Ml) Ud) 3 ml INH RQ4 [facility] Last Admin: 07/13/18 11:53 Dose: 3 ml Aspirin (Ecotrin) 81 mg PO DAILY [facility] Last Admin: 07/13/18 09:52 Dose: 81 mg Ergocalciferol (Drisdol 50,000 Intl Units Cap) 1 cap PO Q7D [facility] Last Admin: 07/11/18 14:50 Dose: 1 cap Meropenem 500 mg/ Sodium (Chloride) 100 mls @ 100 mls/hr IVPB Q12H [facility]; Protocol Last Admin: 07/13/18 12:35 Dose: 100 mls/hr Heparin Sodium/Sodium Chloride (Heparin 60715 Units/250ml 1/2 Normal Saline) 25,000 units in 250 mls @ 10.207 mls/hr IV .Q24H PRN; Protocol PRN Reason: PROTOCOL Last Admin: 07/13/18 02:00 Dose: 9 units/kg/hr, 5.103 mls/hr Dexmedetomidine HCl 200 mcg/ (Sodium Chloride) 50 mls @ 2.79 mls/hr IV TITR PRN; Protocol PRN Reason: Sedation Last Titration: 07/13/18 11:35 Dose: 0 mcg/kg/hr, 0 mls/hr Potassium Phosphate 15 mmole/ (Sodium Chloride) 255 mls @ 63 mls/hr IV ONCE ONE Stop: 07/13/18 14:02 Last Admin: 07/13/18 10:09 Dose: 63 mls/hr Potassium Phosphate 15 mmole/ (Sodium Chloride) 255 mls @ 63 mls/hr IV ONCE ONE Stop: 07/13/18 18:32 Insulin Aspart (Novolog) 0 unit SC Q6 [facility]; Protocol Last Admin: 07/13/18 12:35 Dose: 2 units Insulin Glargine (Lantus) 10 unit SC DAILY [facility] Last Admin: 07/12/18 20:44 Dose: 10 units Lactobacillus Acidophilus (Bacid Acidophilus) 1 cap PO Q12H [facility] Last Admin: 07/13/18 08:43 Dose: 1 cap Methimazole (Tapazole) 10 mg PO TID [facility] Last Admin: 07/13/18 09:52 Dose: 10 mg Ondansetron HCl (Zofran Inj) 4 mg IVP Q6H PRN PRN Reason: Nausea/Vomiting Last Admin: 07/08/18 13:06 Dose: 4 mg Pantoprazole Sodium (Protonix Susp) 40 mg PO BID [facility] Last Admin: 07/13/18 09:52 Dose: 40 mg Potassium Chloride (Potassium Chloride Oral Soln) 40 meq PEG Q6H [facility] Stop: 07/13/18 16:01 Last Admin: 07/13/18 10:25 Dose: 40 meq Potassium Phos/Sodium Phos (Neutra-Phos) 1 pkt PO TID [facility] Stop: 07/13/18 14:01 Last Admin: 07/13/18 09:53 Dose: 1 pkt Propranolol HCl (Propranolol Inj) 1 mg IVP Q6H [facility] Last Admin: 07/13/18 10:36 Dose: 1 mg - Labs Labs: 07/13/18 06:30 07/13/18 06:30 PT 16.1 SECONDS (9.7-12.2) H D 07/13/18 06:30 INR 1.5 D 07/13/18 06:30 APTT 57 SECONDS (21-34) H 07/13/18 06:30
[2018-07-13] MEDS: Magnesium Sulfate 1 gm in D5W 1 GM/100 ML BAG IVPB SCH ×2 (13:50→13:52)
[2018-07-13 16:15] LABS: ALB/GLOB RATIO 0.9 (1.0-2.1); ALBUMIN 2.4 g/dL (3.5-5.0); CALCIUM 7.3 mg/dl (8.6-10.4)
--- NOTE | 2018-07-13 16:43 | CP.PCM.PN ---
Subjective - Date & Time of Evaluation Date of Evaluation: 07/13/18 Time of Evaluation: 16:43 - Subjective Subjective: non verbal intubated moving all ext spont Objective - Vital Signs/Intake and Output Vital Signs (last 24 hours): Temp Pulse Resp BP Pulse Ox 97.8 F 89 11 L 98/62 L 96 07/13/18 16:00 07/13/18 16:00 07/13/18 16:00 07/13/18 15:59 07/13/18 16:00 Intake and Output: 07/13/18 07/13/18 06:59 18:59 Intake Total 722.5 1518.6 Output Total 1400 550 Balance -677.5 968.6 - Medications Medications: Current Medications Acetaminophen (Tylenol 325mg Tab) 650 mg PO Q6H PRN PRN Reason: Pain, moderate (4-7) Last Admin: 07/13/18 11:00 Dose: 650 mg Acetaminophen (Tylenol 325mg Tab) 650 mg PO Q6 PRN PRN Reason: Fever >100.4 F Albuterol/Ipratropium (Duoneb 3 Mg/0.5 Mg (3 Ml) Ud) 3 ml INH RQ4 [facility] Last Admin: 07/13/18 11:53 Dose: 3 ml Aspirin (Ecotrin) 81 mg PO DAILY [facility] Last Admin: 07/13/18 09:52 Dose: 81 mg Ergocalciferol (Drisdol 50,000 Intl Units Cap) 1 cap PO Q7D [facility] Last Admin: 07/11/18 14:50 Dose: 1 cap Meropenem 500 mg/ Sodium (Chloride) 100 mls @ 100 mls/hr IVPB Q12H [facility]; Protocol Last Admin: 07/13/18 12:35 Dose: 100 mls/hr Heparin Sodium/Sodium Chloride (Heparin 24992 Units/250ml 1/2 Normal Saline) 25,000 units in 250 mls @ 10.207 mls/hr IV .Q24H PRN; Protocol PRN Reason: PROTOCOL Last Admin: 07/13/18 02:00 Dose: 9 units/kg/hr, 5.103 mls/hr Dexmedetomidine HCl 200 mcg/ (Sodium Chloride) 50 mls @ 2.79 mls/hr IV TITR PRN; Protocol PRN Reason: Sedation Last Titration: 07/13/18 11:35 Dose: 0 mcg/kg/hr, 0 mls/hr Potassium Phosphate 15 mmole/ (Sodium Chloride) 255 mls @ 63 mls/hr IV ONCE ONE Stop: 07/13/18 18:32 Last Admin: 07/13/18 14:06 Dose: 63 mls/hr Insulin Aspart (Novolog) 0 unit SC Q6 [facility]; Protocol Last Admin: 07/13/18 12:35 Dose: 2 units Insulin Glargine (Lantus) 10 unit SC DAILY [facility] Last Admin: 07/13/18 09:00 Dose: Not Given Lactobacillus Acidophilus (Bacid Acidophilus) 1 cap PO Q12H [facility] Last Admin: 07/13/18 08:43 Dose: 1 cap Methimazole (Tapazole) 10 mg PO TID [facility] Last Admin: 07/13/18 13:57 Dose: 10 mg Ondansetron HCl (Zofran Inj) 4 mg IVP Q6H PRN PRN Reason: Nausea/Vomiting Last Admin: 07/08/18 13:06 Dose: 4 mg Pantoprazole Sodium (Protonix Susp) 40 mg PO BID [facility] Last Admin: 07/13/18 09:52 Dose: 40 mg Propranolol HCl (Propranolol Inj) 1 mg IVP Q6H [facility] Last Admin: 07/13/18 16:09 Dose: Not Given - Labs Labs: 07/13/18 06:30 07/13/18 15:57 PT 16.1 SECONDS (9.7-12.2) H D 07/13/18 06:30 INR 1.5 D 07/13/18 06:30 APTT 57 SECONDS (21-34) H 07/13/18 06:30 - Constitutional Appears: No Acute Distress - Head Exam Head Exam: ATRAUMATIC - Eye Exam Eye Exam: Normal appearance - Respiratory Exam Respiratory Exam: absent: Rales, Rhonchi, Wheezes Additional comments: et tube coarse bs - Cardiovascular Exam Cardiovascular Exam: REGULAR RHYTHM, +S1, +S2 - GI/Abdominal Exam GI & Abdominal Exam: Soft, Normal Bowel Sounds. absent: Tenderness - Neurological Exam Neurological Exam: absent: Alert, Awake, Oriented x3 Assessment and Plan - Assessment and Plan (Free Text) Assessment: cont icu care try to wean septic shock respiratory failure UTI Acute renal failure atn bactrim associated renal failure ? of anoxic brain injury check ct head stop sedation
--- NOTE | 2018-07-13 17:50 | CP.PCM.PN ---
Subjective - Date & Time of Evaluation Date of Evaluation: 07/13/18 Time of Evaluation: 08:00 - Subjective Subjective: events noted intubated still off pressors and off dialysis Objective - Vital Signs/Intake and Output Vital Signs (last 24 hours): Temp Pulse Resp BP Pulse Ox 97.8 F 96 H 13 94/50 L 97 07/13/18 16:00 07/13/18 17:00 07/13/18 17:00 07/13/18 16:59 07/13/18 17:00 Intake and Output: 07/13/18 07/13/18 06:59 18:59 Intake Total 722.5 3583.6 Output Total 1400 620 Balance -677.5 2963.6 - Medications Medications: Current Medications Acetaminophen (Tylenol 325mg Tab) 650 mg PO Q6H PRN PRN Reason: Pain, moderate (4-7) Last Admin: 07/13/18 11:00 Dose: 650 mg Acetaminophen (Tylenol 325mg Tab) 650 mg PO Q6 PRN PRN Reason: Fever >100.4 F Albuterol/Ipratropium (Duoneb 3 Mg/0.5 Mg (3 Ml) Ud) 3 ml INH RQ4 [facility] Last Admin: 07/13/18 11:53 Dose: 3 ml Aspirin (Ecotrin) 81 mg PO DAILY [facility] Last Admin: 07/13/18 09:52 Dose: 81 mg Clopidogrel Bisulfate (Plavix) 75 mg PO DAILY [facility] Ergocalciferol (Drisdol 50,000 Intl Units Cap) 1 cap PO Q7D [facility] Last Admin: 07/11/18 14:50 Dose: 1 cap Meropenem 500 mg/ Sodium (Chloride) 100 mls @ 100 mls/hr IVPB Q12H [facility]; Prot ocol Last Admin: 07/13/18 12:35 Dose: 100 mls/hr Heparin Sodium/Sodium Chloride (Heparin 73556 Units/250ml 1/2 Normal Saline) 25,000 units in 250 mls @ 10.207 mls/hr IV .Q24H PRN; Protocol PRN Reason: PROTOCOL Last Admin: 07/13/18 02:00 Dose: 9 units/kg/hr, 5.103 mls/hr Dexmedetomidine HCl 200 mcg/ (Sodium Chloride) 50 mls @ 2.79 mls/hr IV TITR PRN; Protocol PRN Reason: Sedation Last Titration: 07/13/18 11:35 Dose: 0 mcg/kg/hr, 0 mls/hr Potassium Phosphate 15 mmole/ (Sodium Chloride) 255 mls @ 63 mls/hr IV ONCE ONE Stop: 07/13/18 18:32 Last Admin: 07/13/18 14:06 Dose: 63 mls/hr Insulin Aspart (Novolog) 0 unit SC Q6 [facility]; Protocol Last Admin: 07/13/18 12:35 Dose: 2 units Insulin Glargine (Lantus) 10 unit SC DAILY [facility] Last Admin: 07/13/18 09:00 Dose: Not Given Lactobacillus Acidophilus (Bacid Acidophilus) 1 cap PO Q12H [facility] Last Admin: 07/13/18 08:43 Dose: 1 cap Methimazole (Tapazole) 10 mg PO TID [facility] Last Admin: 07/13/18 17:38 Dose: 10 mg Methylprednisolone (Solu-Medrol) 20 mg IVP DAILY [facility] Ondansetron HCl (Zofran Inj) 4 mg IVP Q6H PRN PRN Reason: Nausea/Vomiting Last Admin: 07/08/18 13:06 Dose: 4 mg Pantoprazole Sodium (Protonix Susp) 40 mg PO BID [facility] Last Admin: 07/13/18 17:38 Dose: 40 mg Propranolol HCl (Propranolol Inj) 1 mg IVP Q6H [facility] Last Admin: 07/13/18 16:09 Dose: Not Given Rosuvastatin Calcium (Crestor) 2.5 mg PO HS [facility] - Labs Labs: 07/13/18 06:30 07/13/18 15:57 PT 16.1 SECONDS (9.7-12.2) H D 07/13/18 06:30 INR 1.5 D 07/13/18 06:30 APTT 57 SECONDS (21-34) H 07/13/18 06:30 - Constitutional Appears: Non-toxic, Confused, Chronically Ill - Head Exam Head Exam: NORMOCEPHALIC - Eye Exam Eye Exam: PERRL. absent: Scleral icterus - ENT Exam ENT Exam: Mucous Membranes Dry - Neck Exam Neck Exam: absent: Lymphadenopathy - Respiratory Exam Respiratory Exam: Decreased Breath Sounds - Cardiovascular Exam Cardiovascular Exam: REGULAR RHYTHM - GI/Abdominal Exam GI & Abdominal Exam: Distended - Rectal Exam Rectal Exam: Deferred - Exam Exam: NORMAL INSPECTION - Extremities Exam Extremities Exam: absent: Pedal Edema - Back Exam Back Exam: absent: CVA tenderness (L), CVA tenderness (R) - Neurological Exam Neurological Exam: Altered - Psychiatric Exam Psychiatric exam: Depressed - Skin Skin Exam: Dry Assessment and Plan (1) NEHA (acute kidney injury) Status: Acute (2) Acute renal failure Status: Acute (3) Acute respiratory failure Status: Acute (4) Aspiration pneumonia Status: Acute (5) Septic shock Status: Acute (6) Urinary tract infection Status: Acute (7) Diabetes mellitus Status: Chronic - Assessment and Plan (Free Text) Assessment: cont empiric IV rx weaning as tolerated CT head pending cardio on board
--- NOTE | 2018-07-13 17:54 | CP.CCUPN ---
<Anabel Hinkle L - Last Filed: 07/13/18 17:11> CCU Subjective - Physician Review Subjective (Free Text): Resident Critical Care Progress Note Patient examined at bedside. No acute events overnight. Patient is intubated, does not follow commands. CCU Objective - Vital Signs / Intake & Output Vital Signs (Last 4 hours): Vital Signs Temp Pulse Resp BP Pulse Ox 07/13/18 17:00 96 H 13 97 07/13/18 16:59 88 12 94/50 L 96 07/13/18 16:00 97.8 F 89 11 L 96 07/13/18 15:59 95 H 17 98/62 L 97 07/13/18 15:07 100 H 27 H 117/72 95 07/13/18 15:00 93 H 17 95 07/13/18 14:07 96 H 26 H 97/61 L 96 07/13/18 14:00 95 H 22 95 Intake and Output (Last 8hrs): Intake & Output 07/13/18 07/13/18 07/13/18 06:59 14:59 22:59 Intake Total 465.5 1092.6 2491 Output Total 500 485 135 Balance -34.5 607.6 2356 Weight 121 lb 7.595 oz Intake: IV 219 41 Intake, IV Amount 96.5 871.6 141 Left Distal Port Femoral 34 21.6 15 Left Medial Port Femoral 22.5 500 Left Proximal Port 315 126 Femoral R Trialysis #1 40 35 Oral 180 2100 Tube Feeding 150 Other 250 Output: Urine 500 485 135 Urethral (Mcintyre) 500 Urine, Voided 485 135 Other: # Bowel Movements 3 - Physical Exam Head: Positive for: Atraumatic, Normocephalic Pupils: Positive for: PERRL Extroacular Muscles: Positive for: EOMI Conjunctiva: Positive for: Normal Mouth: Positive for: Moist Mucous Membranes Respiratory/Chest: Positive for: Good Air Exchange, Rhonchi Cardiovascular: Positive for: Normal S1, S2, Tachycardic Abdomen: Positive for: Normal Bowel Sounds. Negative for: Tenderness, Distention Upper Extremity: Positive for: Normal Inspection. Negative for: Cyanosis, Edema Lower Extremity: Positive for: Normal Inspection. Negative for: Edema, CALF TENDERNESS Skin: Positive for: Warm, Dry, Normal Color Psychiatric: Positive for: Alert - Medications Active Medications: Active Medications Generic Name Dose Route Start Last Admin Trade Name Freq PRN Reason Stop Dose Admin Acetaminophen 650 mg 07/07/18 20:03 07/13/18 11:00 Tylenol 325mg Tab PO 650 mg Q6H PRN Administration Pain, moderate (4-7) Acetaminophen 650 mg 07/12/18 15:57 Tylenol 325mg Tab PO Q6 PRN Fever >100.4 F Albuterol/Ipratropium 3 ml 07/09/18 12:00 07/13/18 11:53 Duoneb 3 Mg/0.5 Mg (3 Ml) Ud INH 3 ml RQ4 MANOLO Administration Aspirin 81 mg 07/12/18 10:00 07/13/18 09:52 Ecotrin PO 81 mg DAILY MANOLO Administration Ergocalciferol 1 cap 07/11/18 12:45 07/11/18 14:50 Drisdol 50,000 Intl Units Cap PO 1 cap Q7D MANOLO Administration Meropenem 500 mg/ Sodium 100 mls @ 100 mls/hr 07/10/18 00:30 07/13/18 12:35 Chloride IVPB 100 mls/hr Q12H MANOLO Administration Protocol Heparin Sodium/Sodium Chloride 25,000 units in 250 mls @ 10.207 mls/hr 07/11/18 09:20 07/13/18 02:00 Heparin 51420 Units/250ml 1/2 Normal Saline IV 9 units/kg/hr .Q24H PRN 5.103 mls/hr PROTOCOL Administration Protocol 18 UNITS/KG/HR Dexmedetomidine HCl 200 mcg/ 50 mls @ 2.79 mls/hr 07/12/18 19:32 07/13/18 11:35 Sodium Chloride IV 0 mcg/kg/hr TITR PRN 0 mls/hr Sedation Titration Protocol 0.2 MCG/KG/HR Potassium Phosphate 15 mmole/ 255 mls @ 63 mls/hr 07/13/18 14:30 07/13/18 14:06 Sodium Chloride IV 07/13/18 18:32 63 mls/hr ONCE ONE Administration Insulin Aspart 0 unit 07/11/18 08:28 07/13/18 12:35 Novolog SC 2 units Q6 MANOLO Administration Protocol Insulin Glargine 10 unit 07/12/18 20:00 07/13/18 09:00 Lantus SC Not Given DAILY MANOLO Lactobacillus Acidophilus 1 cap 07/08/18 20:00 10/11/18 08:43 Bacid Acidophilus PO 1 cap Q12H MANOLO Administration Methimazole 10 mg 07/11/18 10:00 07/13/18 13:57 Tapazole PO 10 mg TID MANOLO Administration Ondansetron HCl 4 mg 07/07/18 18:00 07/08/18 13:06 Zofran Inj IVP 4 mg Q6H PRN Administration Nausea/Vomiting Pantoprazole Sodium 40 mg 07/11/18 10:00 07/13/18 09:52 Protonix Susp PO 40 mg BID MANOLO Administration Propranolol HCl 1 mg 07/13/18 10:15 07/13/18 16:09 Propranolol Inj IVP Not Given Q6H MANOLO - Patient Studies Lab Studies: Microbiology Studies 07/09/18 17:17 Blood Culture - Preliminary Blood NO GROWTH AFTER 3 DAYS 07/09/18 17:16 Blood Culture - Preliminary Blood NO GROWTH AFTER 3 DAYS 07/07/18 16:47 Blood Culture - Final Blood-Venous NO GROWTH AFTER 5 DAYS Gram Stain - Final TEST NOT PERFORMED 07/07/18 16:47 Blood Culture - Final Blood-Venous NO GROWTH AFTER 5 DAYS Gram Stain - Final TEST NOT PERFORMED Lab Studies 07/13/18 07/13/18 07/13/18 Range/Units 15:57 11:45 11:10 WBC (4.8-10.8) K/uL RBC (3.80-5.20) Mil/uL Hgb (11.0-16.0) g/dL Hct (34.0-47.0) % MCV (81.0-99.0) fL MCH (27.0-31.0) pg MCHC (33.0-37.0) g/dL RDW (11.5-14.5) % Plt Count (130-400) K/uL MPV (7.2-11.7) fL Neut % (Auto) (50.0-75.0) % Lymph % (Auto) (20.0-40.0) % [place] % (Auto) (0.0-10.0) % Eos % (Auto) (0.0-4.0) % Baso % (Auto) (0.0-2.0) % Neut # (Auto) (1.8-7.0) K/uL Lymph # (Auto) (1.0-4.3) K/uL [place] # (Auto) (0.0-0.8) K/uL Eos # (Auto) (0.0-0.7) K/uL Baso # (Auto) (0.0-0.2) K/uL PT (9.7-12.2) SECONDS INR APTT (21-34) SECONDS Puncture Site Rra pCO2 37 (35-45) mm/Hg pO2 74 L (80-100) mm/Hg HCO3 31.6 H (21-28) mmol/L ABG pH 7.54 H (7.35-7.45) ABG Total CO2 32.7 H (22-28) mmol/L ABG O2 Saturation 97.4 (95-98) % ABG Base Excess 8.6 H (-2.0-3.0) mmol/L ABG Hemoglobin (11.7-17.4) g/dL ABG Carboxyhemoglobin (0.5-1.5) % POC ABG HHb (Measured) (0.0-5.0) % ABG Methemoglobin (0.0-3.0) % Kevon Test Pos ABG Potassium 3.0 L (3.6-5.2) mmol/L A-a O2 Difference 308.0 mm/Hg Respiratory Index 4.2 Hgb O2 Saturation (95.0-98.0) % Glucose 178 H (65-105) mg/dl Lactate 1.6 (0.7-2.1) mmol/L Vent Mode Cpap Mechanical Rate FiO2 60.0 % Tidal Volume PEEP 5 Pressure Support 15 Crit Value Called To Crit Value Called By Crit Value Read Back Blood Gas Notified Time Sodium 146 145.0 (132-148) mmol/L Potassium 5.2 (3.6-5.2) mmol/L Chloride 107 115.0 H (98-107) mmol/L Carbon Dioxide 32 H (22-30) mmol/L Anion Gap 12 (10-20) BUN 37 H (7-17) mg/dL Creatinine 1.6 H (0.7-1.2) mg/dL Est GFR ( Amer) 41 Est GFR (Non-Af Amer) 34 POC Glucose (mg/dL) 157 H (65-110) mg/dL Random Glucose 173 H (65-105) mg/dL Calcium 7.3 L (8.6-10.4) mg/dl Phosphorus 4.7 H (2.5-4.5) mg/dL Magnesium 2.9 H (1.6-2.3) mg/dL Total Bilirubin 0.7 (0.2-1.3) mg/dL AST 83 H (14-36) U/L ALT 153 H (9-52) U/L Alkaline Phosphatase 122 (38-126) U/L Total Protein 4.9 L (6.3-8.3) g/dL Albumin 2.4 L (3.5-5.0) g/dL Globulin 2.5 (2.2-3.9) gm/dL Albumin/Globulin Ratio 0.9 L (1.0-2.1) Thyroxine (T4) (5.5-11.0) ug/dL TSH 3rd Generation (0.46-4.68) mIU/L Arterial Blood Potassium 3.0 L (3.6-5.2) mmol/L ANCA Screen (NEGATIVE) c-ANCA Titer p-ANCA Titer Atypical p-ANCA Titer 07/13/18 07/13/18 07/13/18 Range/Units 10:48 06:30 06:30 WBC (4.8-10.8) K/uL RBC (3.80-5.20) Mil/uL Hgb (11.0-16.0) g/dL Hct (34.0-47.0) % MCV (81.0-99.0) fL MCH (27.0-31.0) pg MCHC (33.0-37.0) g/dL RDW (11.5-14.5) % Plt Count (130-400) K/uL MPV (7.2-11.7) fL Neut % (Auto) (50.0-75.0) % Lymph % (Auto) (20.0-40.0) % [place] % (Auto) (0.0-10.0) % Eos % (Auto) (0.0-4.0) % Baso % (Auto) (0.0-2.0) % Neut # (Auto) (1.8-7.0) K/uL Lymph # (Auto) (1.0-4.3) K/uL [place] # (Auto) (0.0-0.8) K/uL Eos # (Auto) (0.0-0.7) K/uL Baso # (Auto) (0.0-0.2) K/uL PT 16.1 H D (9.7-12.2) SECONDS INR 1.5 D APTT 57 H (21-34) SECONDS Puncture Site pCO2 (35-45) mm/Hg pO2 (80-100) mm/Hg HCO3 (21-28) mmol/L ABG pH (7.35-7.45) ABG Total CO2 (22-28) mmol/L ABG O2 Saturation (95-98) % ABG Base Excess (-2.0-3.0) mmol/L ABG Hemoglobin (11.7-17.4) g/dL ABG Carboxyhemoglobin (0.5-1.5) % POC ABG HHb (Measured) (0.0-5.0) % ABG Methemoglobin (0.0-3.0) % Kevon Test ABG Potassium (3.6-5.2) mmol/L A-a O2 Difference mm/Hg Respiratory Index Hgb O2 Saturation (95.0-98.0) % Glucose (65-105) mg/dl Lactate (0.7-2.1) mmol/L Vent Mode Mechanical Rate FiO2 % Tidal Volume PEEP Pressure Support Crit Value Called To Crit Value Called By Crit Value Read Back Blood Gas Notified Time Sodium (132-148) mmol/L Potassium (3.6-5.2) mmol/L Chloride (98-107) mmol/L Carbon Dioxide (22-30) mmol/L Anion Gap (10-20) BUN (7-17) mg/dL Creatinine (0.7-1.2) mg/dL Est GFR ( Amer) Est GFR (Non-Af Amer) POC Glucose (mg/dL) 178 H (65-110) mg/dL Random Glucose (65-105) mg/dL Calcium (8.6-10.4) mg/dl Phosphorus (2.5-4.5) mg/dL Magnesium (1.6-2.3) mg/dL Total Bilirubin (0.2-1.3) mg/dL AST (14-36) U/L ALT (9-52) U/L Alkaline Phosphatase (38-126) U/L Total Protein (6.3-8.3) g/dL Albumin (3.5-5.0) g/dL Globulin (2.2-3.9) gm/dL Albumin/Globulin Ratio (1.0-2.1) Thyroxine (T4) 13.0 H (5.5-11.0) ug/dL TSH 3rd Generation (0.46-4.68) mIU/L Arterial Blood Potassium (3.6-5.2) mmol/L ANCA Screen (NEGATIVE) c-ANCA Titer p-ANCA Titer Atypical p-ANCA Titer 07/13/18 07/13/18 07/13/18 Range/Units 06:30 06:30 05:33 WBC 11.0 H D (4.8-10.8) K/uL RBC 2.95 L (3.80-5.20) Mil/uL Hgb 8.8 L (11.0-16.0) g/dL Hct 26.2 L (34.0-47.0) % MCV 88.8 (81.0-99.0) fL MCH 30.0 (27.0-31.0) pg MCHC 33.8 (33.0-37.0) g/dL RDW 15.3 H (11.5-14.5) % Plt Count 143 (130-400) K/uL MPV 8.9 (7.2-11.7) fL Neut % (Auto) 68.0 (50.0-75.0) % Lymph % (Auto) 23.7 (20.0-40.0) % [place] % (Auto) 5.9 (0.0-10.0) % Eos % (Auto) 2.1 (0.0-4.0) % Baso % (Auto) 0.3 (0.0-2.0) % Neut # (Auto) 7.5 H (1.8-7.0) K/uL Lymph # (Auto) 2.6 (1.0-4.3) K/uL [place] # (Auto) 0.6 (0.0-0.8) K/uL Eos # (Auto) 0.2 (0.0-0.7) K/uL Baso # (Auto) 0.0 (0.0-0.2) K/uL PT (9.7-12.2) SECONDS INR APTT (21-34) SECONDS Puncture Site pCO2 (35-45) mm/Hg pO2 (80-100) mm/Hg HCO3 (21-28) mmol/L ABG pH (7.35-7.45) ABG Total CO2 (22-28) mmol/L ABG O2 Saturation (95-98) % ABG Base Excess (-2.0-3.0) mmol/L ABG Hemoglobin (11.7-17.4) g/dL ABG Carboxyhemoglobin (0.5-1.5) % POC ABG HHb (Measured) (0.0-5.0) % ABG Methemoglobin (0.0-3.0) % Kevon Test ABG Potassium (3.6-5.2) mmol/L A-a O2 Difference mm/Hg Respiratory Index Hgb O2 Saturation (95.0-98.0) % Glucose (65-105) mg/dl Lactate (0.7-2.1) mmol/L Vent Mode Mechanical Rate FiO2 % Tidal Volume PEEP Pressure Support Crit Value Called To Crit Value Called By Crit Value Read Back Blood Gas Notified Time Sodium 147 (132-148) mmol/L Potassium 2.8 L (3.6-5.2) mmol/L Chloride 105 (98-107) mmol/L Carbon Dioxide 33 H (22-30) mmol/L Anion Gap 12 (10-20) BUN 43 H (7-17) mg/dL Creatinine 1.8 H (0.7-1.2) mg/dL Est GFR ( Amer) 36 Est GFR (Non-Af Amer) 30 POC Glucose (mg/dL) 124 H (65-110) mg/dL Random Glucose 108 H (65-105) mg/dL Calcium 7.5 L (8.6-10.4) mg/dl Phosphorus 1.2 L (2.5-4.5) mg/dL Magnesium 1.5 L (1.6-2.3) mg/dL Total Bilirubin 0.8 (0.2-1.3) mg/dL AST 78 H D (14-36) U/L ALT 175 H D (9-52) U/L Alkaline Phosphatase 121 (38-126) U/L Total Protein 4.8 L (6.3-8.3) g/dL Albumin 2.3 L (3.5-5.0) g/dL Globulin 2.6 (2.2-3.9) gm/dL Albumin/Globulin Ratio 0.9 L (1.0-2.1) Thyroxine (T4) (5.5-11.0) ug/dL TSH 3rd Generation < 0.02 L (0.46-4.68) mIU/L Arterial Blood Potassium (3.6-5.2) mmol/L ANCA Screen (NEGATIVE) c-ANCA Titer p-ANCA Titer Atypical p-ANCA Titer 07/13/18 07/12/18 07/12/18 Range/Units 04:30 23:43 21:59 WBC (4.8-10.8) K/uL RBC (3.80-5.20) Mil/uL Hgb (11.0-16.0) g/dL Hct (34.0-47.0) % MCV (81.0-99.0) fL MCH (27.0-31.0) pg MCHC (33.0-37.0) g/dL RDW (11.5-14.5) % Plt Count (130-400) K/uL MPV (7.2-11.7) fL Neut % (Auto) (50.0-75.0) % Lymph % (Auto) (20.0-40.0) % [place] % (Auto) (0.0-10.0) % Eos % (Auto) (0.0-4.0) % Baso % (Auto) (0.0-2.0) % Neut # (Auto) (1.8-7.0) K/uL Lymph # (Auto) (1.0-4.3) K/uL [place] # (Auto) (0.0-0.8) K/uL Eos # (Auto) (0.0-0.7) K/uL Baso # (Auto) (0.0-0.2) K/uL PT (9.7-12.2) SECONDS INR APTT 55 H (21-34) SECONDS Puncture Site Rr pCO2 32 L (35-45) mm/Hg pO2 94 (80-100) mm/Hg HCO3 34.8 H (21-28) mmol/L ABG pH 7.64 H* (7.35-7.45) ABG Total CO2 35.4 H (22-28) mmol/L ABG O2 Saturation 98.8 H (95-98) % ABG Base Excess 12.6 H (-2.0-3.0) mmol/L ABG Hemoglobin 7.9 L (11.7-17.4) g/dL ABG Carboxyhemoglobin 2.2 H (0.5-1.5) % POC ABG HHb (Measured) 1.2 (0.0-5.0) % ABG Methemoglobin 1.3 (0.0-3.0) % Kevon Test Pos ABG Potassium (3.6-5.2) mmol/L A-a O2 Difference 294.0 mm/Hg Respiratory Index 3.1 Hgb O2 Saturation 95.3 (95.0-98.0) % Glucose (65-105) mg/dl Lactate (0.7-2.1) mmol/L Vent Mode Prvc Mechanical Rate 12 FiO2 60.0 % Tidal Volume 450 PEEP 5 Pressure Support Crit Value Called To Dr villanueva Crit Value Called By Silvano telles/rt Crit Value Read Back Y Blood Gas Notified Time 500 Sodium (132-148) mmol/L Potassium (3.6-5.2) mmol/L Chloride (98-107) mmol/L Carbon Dioxide (22-30) mmol/L Anion Gap (10-20) BUN (7-17) mg/dL Creatinine (0.7-1.2) mg/dL Est GFR ( Amer) Est GFR (Non-Af Amer) POC Glucose (mg/dL) 285 H (65-110) mg/dL Random Glucose (65-105) mg/dL Calcium (8.6-10.4) mg/dl Phosphorus (2.5-4.5) mg/dL Magnesium (1.6-2.3) mg/dL Total Bilirubin (0.2-1.3) mg/dL AST (14-36) U/L ALT (9-52) U/L Alkaline Phosphatase (38-126) U/L Total Protein (6.3-8.3) g/dL Albumin (3.5-5.0) g/dL Globulin (2.2-3.9) gm/dL Albumin/Globulin Ratio (1.0-2.1) Thyroxine (T4) (5.5-11.0) ug/dL TSH 3rd Generation (0.46-4.68) mIU/L Arterial Blood Potassium (3.6-5.2) mmol/L ANCA Screen (NEGATIVE) c-ANCA Titer p-ANCA Titer Atypical p-ANCA Titer 07/12/18 07/08/18 Range/Units 17:53 23:06 WBC (4.8-10.8) K/uL RBC (3.80-5.20) Mil/uL Hgb (11.0-16.0) g/dL Hct (34.0-47.0) % MCV (81.0-99.0) fL MCH (27.0-31.0) pg MCHC (33.0-37.0) g/dL RDW (11.5-14.5) % Plt Count (130-400) K/uL MPV (7.2-11.7) fL Neut % (Auto) (50.0-75.0) % Lymph % (Auto) (20.0-40.0) % [place] % (Auto) (0.0-10.0) % Eos % (Auto) (0.0-4.0) % Baso % (Auto) (0.0-2.0) % Neut # (Auto) (1.8-7.0) K/uL Lymph # (Auto) (1.0-4.3) K/uL [place] # (Auto) (0.0-0.8) K/uL Eos # (Auto) (0.0-0.7) K/uL Baso # (Auto) (0.0-0.2) K/uL PT (9.7-12.2) SECONDS INR APTT (21-34) SECONDS Puncture Site pCO2 (35-45) mm/Hg pO2 (80-100) mm/Hg HCO3 (21-28) mmol/L ABG pH (7.35-7.45) ABG Total CO2 (22-28) mmol/L ABG O2 Saturation (95-98) % ABG Base Excess (-2.0-3.0) mmol/L ABG Hemoglobin (11.7-17.4) g/dL ABG Carboxyhemoglobin (0.5-1.5) % POC ABG HHb (Measured) (0.0-5.0) % ABG Methemoglobin (0.0-3.0) % Kevon Test ABG Potassium (3.6-5.2) mmol/L A-a O2 Difference mm/Hg Respiratory Index Hgb O2 Saturation (95.0-98.0) % Glucose (65-105) mg/dl Lactate (0.7-2.1) mmol/L Vent Mode Mechanical Rate FiO2 % Tidal Volume PEEP Pressure Support Crit Value Called To Crit Value Called By Crit Value Read Back Blood Gas Notified Time Sodium (132-148) mmol/L Potassium (3.6-5.2) mmol/L Chloride (98-107) mmol/L Carbon Dioxide (22-30) mmol/L Anion Gap (10-20) BUN (7-17) mg/dL Creatinine (0.7-1.2) mg/dL Est GFR ( Amer) Est GFR (Non-Af Amer) POC Glucose (mg/dL) 326 H (65-110) mg/dL Random Glucose (65-105) mg/dL Calcium (8.6-10.4) mg/dl Phosphorus (2.5-4.5) mg/dL Magnesium (1.6-2.3) mg/dL Total Bilirubin (0.2-1.3) mg/dL AST (14-36) U/L ALT (9-52) U/L Alkaline Phosphatase (38-126) U/L Total Protein (6.3-8.3) g/dL Albumin (3.5-5.0) g/dL Globulin (2.2-3.9) gm/dL Albumin/Globulin Ratio (1.0-2.1) Thyroxine (T4) (5.5-11.0) ug/dL TSH 3rd Generation (0.46-4.68) mIU/L Arterial Blood Potassium (3.6-5.2) mmol/L ANCA Screen Negative (NEGATIVE) c-ANCA Titer TNP p-ANCA Titer TNP Atypical p-ANCA Titer TNP Laboratory Results - last 24 hr 07/08/18 07/12/18 07/12/18 23:06 17:53 21:59 WBC RBC Hgb Hct MCV MCH MCHC RDW Plt Count MPV Neut % (Auto) Lymph % (Auto) [place] % (Auto) Eos % (Auto) Baso % (Auto) Neut # (Auto) Lymph # (Auto) [place] # (Auto) Eos # (Auto) Baso # (Auto) PT INR APTT 55 H Puncture Site pCO2 pO2 HCO3 ABG pH ABG Total CO2 ABG O2 Saturation ABG Base Excess ABG Hemoglobin ABG Carboxyhemoglobin POC ABG HHb (Measured) ABG Methemoglobin Kevon Test ABG Potassium A-a O2 Difference Respiratory Index Hgb O2 Saturation Glucose Lactate Vent Mode Mechanical Rate FiO2 Tidal Volume PEEP Pressure Support Crit Value Called To Crit Value Called By Crit Value Read Back Blood Gas Notified Time Sodium Potassium Chloride Carbon Dioxide Anion Gap BUN Creatinine Est GFR ( Amer) Est GFR (Non-Af Amer) POC Glucose (mg/dL) 326 H Random Glucose Calcium Phosphorus Magnesium Total Bilirubin AST ALT Alkaline Phosphatase Total Protein Albumin Globulin Albumin/Globulin Ratio Thyroxine (T4) TSH 3rd Generation Arterial Blood Potassium ANCA Screen Negative c-ANCA Titer TNP p-ANCA Titer TNP Atypical p-ANCA Titer TNP 07/12/18 07/13/18 07/13/18 23:43 04:30 05:33 WBC RBC Hgb Hct MCV MCH MCHC RDW Plt Count MPV Neut % (Auto) Lymph % (Auto) [place] % (Auto) Eos % (Auto) Baso % (Auto) Neut # (Auto) Lymph # (Auto) [place] # (Auto) Eos # (Auto) Baso # (Auto) PT INR APTT Puncture Site Rr pCO2 32 L pO2 94 HCO3 34.8 H ABG pH 7.64 H* ABG Total CO2 35.4 H ABG O2 Saturation 98.8 H ABG Base Excess 12.6 H ABG Hemoglobin 7.9 L ABG Carboxyhemoglobin 2.2 H POC ABG HHb (Measured) 1.2 ABG Methemoglobin 1.3 Kevon Test Pos ABG Potassium A-a O2 Difference 294.0 Respiratory Index 3.1 Hgb O2 Saturation 95.3 Glucose Lactate Vent Mode Prvc Mechanical Rate 12 FiO2 60.0 Tidal Volume 450 PEEP 5 Pressure Support Crit Value Called To Dr villanueva Crit Value Called By Silvano telles/rt Crit Value Read Back Y Blood Gas Notified Time 500 Sodium Potassium Chloride Carbon Dioxide Anion Gap BUN Creatinine Est GFR ( Amer) Est GFR (Non-Af Amer) POC Glucose (mg/dL) 285 H 124 H Random Glucose Calcium Phosphorus Magnesium Total Bilirubin AST ALT Alkaline Phosphatase Total Protein Albumin Globulin Albumin/Globulin Ratio Thyroxine (T4) TSH 3rd Generation Arterial Blood Potassium ANCA Screen c-ANCA Titer p-ANCA Titer Atypical p-ANCA Titer 07/13/18 07/13/18 07/13/18 06:30 06:30 06:30 WBC 11.0 H D RBC 2.95 L Hgb 8.8 L Hct 26.2 L MCV 88.8 MCH 30.0 MCHC 33.8 RDW 15.3 H Plt Count 143 MPV 8.9 Neut % (Auto) 68.0 Lymph % (Auto) 23.7 [place] % (Auto) 5.9 Eos % (Auto) 2.1 Baso % (Auto) 0.3 Neut # (Auto) 7.5 H Lymph # (Auto) 2.6 [place] # (Auto) 0.6 Eos # (Auto) 0.2 Baso # (Auto) 0.0 PT INR APTT Puncture Site pCO2 pO2 HCO3 ABG pH ABG Total CO2 ABG O2 Saturation ABG Base Excess ABG Hemoglobin ABG Carboxyhemoglobin POC ABG HHb (Measured) ABG Methemoglobin Kevon Test ABG Potassium A-a O2 Difference Respiratory Index Hgb O2 Saturation Glucose Lactate Vent Mode Mechanical Rate FiO2 Tidal Volume PEEP Pressure Support Crit Value Called To Crit Value Called By Crit Value Read Back Blood Gas Notified Time Sodium 147 Potassium 2.8 L Chloride 105 Carbon Dioxide 33 H Anion Gap 12 BUN 43 H Creatinine 1.8 H Est GFR ( Amer) 36 Est GFR (Non-Af Amer) 30 POC Glucose (mg/dL) Random Glucose 108 H Calcium 7.5 L Phosphorus 1.2 L Magnesium 1.5 L Total Bilirubin 0.8 AST 78 H D ALT 175 H D Alkaline Phosphatase 121 Total Protein 4.8 L Albumin 2.3 L Globulin 2.6 Albumin/Globulin Ratio 0.9 L Thyroxine (T4) 13.0 H TSH 3rd Generation < 0.02 L Arterial Blood Potassium ANCA Screen c-ANCA Titer p-ANCA Titer Atypical p-ANCA Titer 07/13/18 07/13/18 07/13/18 06:30 10:48 11:10 WBC RBC Hgb Hct MCV MCH MCHC RDW Plt Count MPV Neut % (Auto) Lymph % (Auto) [place] % (Auto) Eos % (Auto) Baso % (Auto) Neut # (Auto) Lymph # (Auto) [place] # (Auto) Eos # (Auto) Baso # (Auto) PT 16.1 H D INR 1.5 D APTT 57 H Puncture Site Rra pCO2 37 pO2 74 L HCO3 31.6 H ABG pH 7.54 H ABG Total CO2 32.7 H ABG O2 Saturation 97.4 ABG Base Excess 8.6 H ABG Hemoglobin ABG Carboxyhemoglobin POC ABG HHb (Measured) ABG Methemoglobin [place]ev[place] Test Pos ABG Potassium 3.0 L A-a O2 Difference 308.0 Respiratory Index 4.2 Hgb O2 Saturation Glucose 178 H Lactate 1.6 Vent Mode Cpap Mechanical Rate FiO2 60.0 Tidal Volume PEEP 5 Pressure Support 15 Crit Value Called To Crit Value Called By Crit Value Read Back Blood Gas Notified Time Sodium 145.0 Potassium Chloride 115.0 H Carbon Dioxide Anion Gap BUN Creatinine Est GFR ( Amer) Est GFR (Non-Af Amer) POC Glucose (mg/dL) 178 H Random Glucose Calcium Phosphorus Magnesium Total Bilirubin AST ALT Alkaline Phosphatase Total Protein Albumin Globulin Albumin/Globulin Ratio Thyroxine (T4) TSH 3rd Generation Arterial Blood Potassium 3.0 L ANCA Screen c-ANCA Titer p-ANCA Titer Atypical p-ANCA Titer 07/13/18 07/13/18 11:45 15:57 WBC RBC Hgb Hct MCV MCH MCHC RDW Plt Count MPV Neut % (Auto) Lymph % (Auto) [place] % (Auto) Eos % (Auto) Baso % (Auto) Neut # (Auto) Lymph # (Auto) [place] # (Auto) Eos # (Auto) Baso # (Auto) PT INR APTT Puncture Site pCO2 pO2 HCO3 ABG pH ABG Total CO2 ABG O2 Saturation ABG Base Excess ABG Hemoglobin ABG Carboxyhemoglobin POC ABG HHb (Measured) ABG Methemoglobin [place]ev[place] Test ABG Potassium A-a O2 Difference Respiratory Index Hgb O2 Saturation Glucose Lactate Vent Mode Mechanical Rate FiO2 Tidal Volume PEEP Pressure Support Crit Value Called To Crit Value Called By Crit Value Read Back Blood Gas Notified Time Sodium 146 Potassium 5.2 Chloride 107 Carbon Dioxide 32 H Anion Gap 12 BUN 37 H Creatinine 1.6 H Est GFR ( Amer) 41 Est GFR (Non-Af Amer) 34 POC Glucose (mg/dL) 157 H Random Glucose 173 H Calcium 7.3 L Phosphorus 4.7 H Magnesium 2.9 H Total Bilirubin 0.7 AST 83 H ALT 153 H Alkaline Phosphatase 122 Total Protein 4.9 L Albumin 2.4 L Globulin 2.5 Albumin/Globulin Ratio 0.9 L Thyroxine (T4) TSH 3rd Generation Arterial Blood Potassium ANCA Screen c-ANCA Titer p-ANCA Titer Atypical p-ANCA Titer Fingerstick Blood Sugar Results: 157 Assessment/Plan - Assessment and Plan (Free Text) Plan: Neuro: - fentanyl discontinued - anoxic brain injury - avoid all sedation to evaluate underlying mental status - goals of care to be discussed Pulm: - hypoxic respiratory failure secondary to pulmonary congestion, renal failure - Keep saturation>92, was in respiratory alkalosis - Duonebs 2 ml INH RQ4 - daily cpap, discontinue sedation CV: - cardiac arrest from unknown etiology - pressors discontinued - amiodarone 200 mg PO daily - Cardiology consulted. Appreciate recs. 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 Laz Hinkle PGY-1 <Bhanu Villegas - Last Filed: 07/13/18 18:48> CCU Subjective - Physician Review Events Since Last Encounter (Free Text): 07/13/18 18:48 Dialysis Cath removed from IJ CCU Objective - Vital Signs / Intake & Output Vital Signs (Last 4 hours): Vital Signs Temp Pulse Resp BP Pulse Ox 07/13/18 18:19 91 H 11 L 102/56 L 96 07/13/18 18:04 101 H 97 07/13/18 17:00 96 H 13 97 07/13/18 16:59 88 12 94/50 L 96 07/13/18 16:00 97.8 F 89 11 L 96 07/13/18 15:59 95 H 17 98/62 L 97 07/13/18 15:07 100 H 27 H 117/72 95 07/13/18 15:00 93 H 17 95 Intake and Output (Last 8hrs): Intake & Output 07/13/18 07/13/18 07/13/18 06:59 14:59 22:59 Intake Total 465.5 1092.6 476 Output Total 500 485 185 Balance -34.5 607.6 291 Weight 121 lb 7.595 oz Intake: IV 219 41 Intake, IV Amount 96.5 871.6 146 Left Distal Port Femoral 34 21.6 20 Left Medial Port Femoral 22.5 500 Left Proximal Port 315 126 Femoral R Trialysis #1 40 35 Oral 180 80 Tube Feeding 150 Other 250 Output: Urine 500 485 185 Urethral (Mcintyre) 500 Urine, Voided 485 185 Other: # Bowel Movements 3 1 - Medications Active Medications: Active Medications Generic Name Dose Route Start Last Admin Trade Name Freq PRN Reason Stop Dose Admin Acetaminophen 650 mg 07/07/18 20:03 07/13/18 11:00 Tylenol 325mg Tab PO 650 mg Q6H PRN Administration Pain, moderate (4-7) Acetaminophen 650 mg 07/12/18 15:57 Tylenol 325mg Tab PO Q6 PRN Fever >100.4 F Albuterol/Ipratropium 3 ml 07/09/18 12:00 07/13/18 11:53 Duoneb 3 Mg/0.5 Mg (3 Ml) Ud INH 3 ml RQ4 MANOLO Administration Aspirin 81 mg 07/12/18 10:00 07/13/18 09:52 Ecotrin PO 81 mg DAILY MANOLO Administration Clopidogrel Bisulfate 75 mg 07/14/18 10:00 Plavix PO DAILY MANOLO Ergocalciferol 1 cap 07/11/18 12:45 07/11/18 14:50 Drisdol 50,000 Intl Units Cap PO 1 cap Q7D MANOLO Administration Meropenem 500 mg/ Sodium 100 mls @ 100 mls/hr 07/10/18 00:30 07/13/18 12:35 Chloride IVPB 100 mls/hr Q12H MANOLO Administration Protocol Heparin Sodium/Sodium Chloride 25,000 units in 250 mls @ 10.207 mls/hr 07/11/18 09:20 07/13/18 02:00 Heparin 04071 Units/250ml 1/2 Normal Saline IV 9 units/kg/hr .Q24H PRN 5.103 mls/hr PROTOCOL Administration Protocol 18 UNITS/KG/HR Dexmedetomidine HCl 200 mcg/ 50 mls @ 2.79 mls/hr 07/12/18 19:32 07/13/18 11:35 Sodium Chloride IV 0 mcg/kg/hr TITR PRN 0 mls/hr Sedation Titration Protocol 0.2 MCG/KG/HR Insulin Aspart 0 unit 07/11/18 08:28 07/13/18 18:25 Novolog SC 2 units Q6 MANOLO Administration Protocol Insulin Glargine 10 unit 07/12/18 20:00 07/13/18 09:00 Lantus SC Not Given DAILY [facility] Lactobacillus Acidophilus 1 cap 07/08/18 20:00 07/13/18 08:43 Bacid Acidophilus PO 1 cap Q12H MANOLO Administration Methimazole 10 mg 07/11/18 10:00 07/13/18 17:38 Tapazole PO 10 mg TID MANOLO Administration Methylprednisolone 20 mg 07/14/18 10:00 Solu-Medrol IVP DAILY [facility] Ondansetron HCl 4 mg 07/07/18 18:00 07/08/18 13:06 Zofran Inj IVP 4 mg Q6H PRN Administration Nausea/Vomiting Pantoprazole Sodium 40 mg 07/11/18 10:00 07/13/18 17:38 Protonix Susp PO 40 mg BID MANOLO Administration Propranolol HCl 1 mg 07/13/18 10:15 07/13/18 16:09 Propranolol Inj IVP Not Given Q6H [facility] Rosuvastatin Calcium 2.5 mg 07/13/18 22:00 Crestor PO HS MANOLO - Patient Studies Lab Studies: Microbiology Studies 07/09/18 17:17 Blood Culture - Preliminary Blood NO GROWTH AFTER 4 DAYS 07/09/18 17:16 Blood Culture - Preliminary Blood NO GROWTH AFTER 4 DAYS 07/07/18 16:47 Blood Culture - Final Blood-Venous NO GROWTH AFTER 5 DAYS Gram Stain - Final TEST NOT PERFORMED 07/07/18 16:47 Blood Culture - Final Blood-Venous NO GROWTH AFTER 5 DAYS Gram Stain - Final TEST NOT PERFORMED Lab Studies 07/13/18 07/13/18 07/13/18 Range/Units 15:57 11:45 11:10 WBC (4.8-10.8) K/uL RBC (3.80-5.20) Mil/uL Hgb (11.0-16.0) g/dL Hct (34.0-47.0) % MCV (81.0-99.0) fL MCH (27.0-31.0) pg MCHC (33.0-37.0) g/dL RDW (11.5-14.5) % Plt Count (130-400) K/uL MPV (7.2-11.7) fL Neut % (Auto) (50.0-75.0) % Lymph % (Auto) (20.0-40.0) % [place] % (Auto) (0.0-10.0) % Eos % (Auto) (0.0-4.0) % Baso % (Auto) (0.0-2.0) % Neut # (Auto) (1.8-7.0) K/uL Lymph # (Auto) (1.0-4.3) K/uL [place] # (Auto) (0.0-0.8) K/uL Eos # (Auto) (0.0-0.7) K/uL Baso # (Auto) (0.0-0.2) K/uL PT (9.7-12.2) SECONDS INR APTT (21-34) SECONDS Puncture Site Rra pCO2 37 (35-45) mm/Hg pO2 74 L (80-100) mm/Hg HCO3 31.6 H (21-28) mmol/L ABG pH 7.54 H (7.35-7.45) ABG Total CO2 32.7 H (22-28) mmol/L ABG O2 Saturation 97.4 (95-98) % ABG Base Excess 8.6 H (-2.0-3.0) mmol/L ABG Hemoglobin (11.7-17.4) g/dL ABG Carboxyhemoglobin (0.5-1.5) % POC ABG HHb (Measured) (0.0-5.0) % ABG Methemoglobin (0.0-3.0) % Kevon Test Pos ABG Potassium 3.0 L (3.6-5.2) mmol/L A-a O2 Difference 308.0 mm/Hg Respiratory Index 4.2 Hgb O2 Saturation (95.0-98.0) % Glucose 178 H (65-105) mg/dl Lactate 1.6 (0.7-2.1) mmol/L Vent Mode Cpap Mechanical Rate FiO2 60.0 % Tidal Volume PEEP 5 Pressure Support 15 Crit Value Called To Crit Value Called By Crit Value Read Back Blood Gas Notified Time Sodium 146 145.0 (132-148) mmol/L Potassium 5.2 (3.6-5.2) mmol/L Chloride 107 115.0 H (98-107) mmol/L Carbon Dioxide 32 H (22-30) mmol/L Anion Gap 12 (10-20) BUN 37 H (7-17) mg/dL Creatinine 1.6 H (0.7-1.2) mg/dL Est GFR ( Amer) 41 Est GFR (Non-Af Amer) 34 POC Glucose (mg/dL) 157 H (65-110) mg/dL Random Glucose 173 H (65-105) mg/dL Calcium 7.3 L (8.6-10.4) mg/dl Phosphorus 4.7 H (2.5-4.5) mg/dL Magnesium 2.9 H (1.6-2.3) mg/dL Total Bilirubin 0.7 (0.2-1.3) mg/dL AST 83 H (14-36) U/L ALT 153 H (9-52) U/L Alkaline Phosphatase 122 (38-126) U/L Total Protein 4.9 L (6.3-8.3) g/dL Albumin 2.4 L (3.5-5.0) g/dL Globulin 2.5 (2.2-3.9) gm/dL Albumin/Globulin Ratio 0.9 L (1.0-2.1) Thyroxine (T4) (5.5-11.0) ug/dL TSH 3rd Generation (0.46-4.68) mIU/L Arterial Blood Potassium 3.0 L (3.6-5.2) mmol/L ANCA Screen (NEGATIVE) c-ANCA Titer p-ANCA Titer Atypical p-ANCA Titer 07/13/18 07/13/18 07/13/18 Range/Units 10:48 06:30 06:30 WBC (4.8-10.8) K/uL RBC (3.80-5.20) Mil/uL Hgb (11.0-16.0) g/dL Hct (34.0-47.0) % MCV (81.0-99.0) fL MCH (27.0-31.0) pg MCHC (33.0-37.0) g/dL RDW (11.5-14.5) % Plt Count (130-400) K/uL MPV (7.2-11.7) fL Neut % (Auto) (50.0-75.0) % Lymph % (Auto) (20.0-40.0) % [place] % (Auto) (0.0-10.0) % Eos % (Auto) (0.0-4.0) % Baso % (Auto) (0.0-2.0) % Neut # (Auto) (1.8-7.0) K/uL Lymph # (Auto) (1.0-4.3) K/uL [place] # (Auto) (0.0-0.8) K/uL Eos # (Auto) (0.0-0.7) K/uL Baso # (Auto) (0.0-0.2) K/uL PT 16.1 H D (9.7-12.2) SECONDS INR 1.5 D APTT 57 H (21-34) SECONDS Puncture Site pCO2 (35-45) mm/Hg pO2 (80-100) mm/Hg HCO3 (21-28) mmol/L ABG pH (7.35-7.45) ABG Total CO2 (22-28) mmol/L ABG O2 Saturation (95-98) % ABG Base Excess (-2.0-3.0) mmol/L ABG Hemoglobin (11.7-17.4) g/dL ABG Carboxyhemoglobin (0.5-1.5) % POC ABG HHb (Measured) (0.0-5.0) % ABG Methemoglobin (0.0-3.0) % Kevon Test ABG Potassium (3.6-5.2) mmol/L A-a O2 Difference mm/Hg Respiratory Index Hgb O2 Saturation (95.0-98.0) % Glucose (65-105) mg/dl Lactate (0.7-2.1) mmol/L Vent Mode Mechanical Rate FiO2 % Tidal Volume PEEP Pressure Support Crit Value Called To Crit Value Called By Crit Value Read Back Blood Gas Notified Time Sodium (132-148) mmol/L Potassium (3.6-5.2) mmol/L Chloride (98-107) mmol/L Carbon Dioxide (22-30) mmol/L Anion Gap (10-20) BUN (7-17) mg/dL Creatinine (0.7-1.2) mg/dL Est GFR ( Amer) Est GFR (Non-Af Amer) POC Glucose (mg/dL) 178 H (65-110) mg/dL Random Glucose (65-105) mg/dL Calcium (8.6-10.4) mg/dl Phosphorus (2.5-4.5) mg/dL Magnesium (1.6-2.3) mg/dL Total Bilirubin (0.2-1.3) mg/dL AST (14-36) U/L ALT (9-52) U/L Alkaline Phosphatase (38-126) U/L Total Protein (6.3-8.3) g/dL Albumin (3.5-5.0) g/dL Globulin (2.2-3.9) gm/dL Albumin/Globulin Ratio (1.0-2.1) Thyroxine (T4) 13.0 H (5.5-11.0) ug/dL TSH 3rd Generation (0.46-4.68) mIU/L Arterial Blood Potassium (3.6-5.2) mmol/L ANCA Screen (NEGATIVE) c-ANCA Titer p-ANCA Titer Atypical p-ANCA Titer 07/13/18 07/13/18 07/13/18 Range/Units 06:30 06:30 05:33 WBC 11.0 H D (4.8-10.8) K/uL RBC 2.95 L (3.80-5.20) Mil/uL Hgb 8.8 L (11.0-16.0) g/dL Hct 26.2 L (34.0-47.0) % MCV 88.8 (81.0-99.0) fL MCH 30.0 (27.0-31.0) pg MCHC 33.8 (33.0-37.0) g/dL RDW 15.3 H (11.5-14.5) % Plt Count 143 (130-400) K/uL MPV 8.9 (7.2-11.7) fL Neut % (Auto) 68.0 (50.0-75.0) % Lymph % (Auto) 23.7 (20.0-40.0) % [place] % (Auto) 5.9 (0.0-10.0) % Eos % (Auto) 2.1 (0.0-4.0) % Baso % (Auto) 0.3 (0.0-2.0) % Neut # (Auto) 7.5 H (1.8-7.0) K/uL Lymph # (Auto) 2.6 (1.0-4.3) K/uL [place] # (Auto) 0.6 (0.0-0.8) K/uL Eos # (Auto) 0.2 (0.0-0.7) K/uL Baso # (Auto) 0.0 (0.0-0.2) K/uL PT (9.7-12.2) SECONDS INR APTT (21-34) SECONDS Puncture Site pCO2 (35-45) mm/Hg pO2 (80-100) mm/Hg HCO3 (21-28) mmol/L ABG pH (7.35-7.45) ABG Total CO2 (22-28) mmol/L ABG O2 Saturation (95-98) % ABG Base Excess (-2.0-3.0) mmol/L ABG Hemoglobin (11.7-17.4) g/dL ABG Carboxyhemoglobin (0.5-1.5) % POC ABG HHb (Measured) (0.0-5.0) % ABG Methemoglobin (0.0-3.0) % Kevon Test ABG Potassium (3.6-5.2) mmol/L A-a O2 Difference mm/Hg Respiratory Index Hgb O2 Saturation (95.0-98.0) % Glucose (65-105) mg/dl Lactate (0.7-2.1) mmol/L Vent Mode Mechanical Rate FiO2 % Tidal Volume PEEP Pressure Support Crit Value Called To Crit Value Called By Crit Value Read Back Blood Gas Notified Time Sodium 147 (132-148) mmol/L Potassium 2.8 L (3.6-5.2) mmol/L Chloride 105 (98-107) mmol/L Carbon Dioxide 33 H (22-30) mmol/L Anion Gap 12 (10-20) BUN 43 H (7-17) mg/dL Creatinine 1.8 H (0.7-1.2) mg/dL Est GFR ( Amer) 36 Est GFR (Non-Af Amer) 30 POC Glucose (mg/dL) 124 H (65-110) mg/dL Random Glucose 108 H (65-105) mg/dL Calcium 7.5 L (8.6-10.4) mg/dl Phosphorus 1.2 L (2.5-4.5) mg/dL Magnesium 1.5 L (1.6-2.3) mg/dL Total Bilirubin 0.8 (0.2-1.3) mg/dL AST 78 H D (14-36) U/L ALT 175 H D (9-52) U/L Alkaline Phosphatase 121 (38-126) U/L Total Protein 4.8 L (6.3-8.3) g/dL Albumin 2.3 L (3.5-5.0) g/dL Globulin 2.6 (2.2-3.9) gm/dL Albumin/Globulin Ratio 0.9 L (1.0-2.1) Thyroxine (T4) (5.5-11.0) ug/dL TSH 3rd Generation < 0.02 L (0.46-4.68) mIU/L Arterial Blood Potassium (3.6-5.2) mmol/L ANCA Screen (NEGATIVE) c-ANCA Titer p-ANCA Titer Atypical p-ANCA Titer 07/13/18 07/12/18 07/12/18 Range/Units 04:30 23:43 21:59 WBC (4.8-10.8) K/uL RBC (3.80-5.20) Mil/uL Hgb (11.0-16.0) g/dL Hct (34.0-47.0) % MCV (81.0-99.0) fL MCH (27.0-31.0) pg MCHC (33.0-37.0) g/dL RDW (11.5-14.5) % Plt Count (130-400) K/uL MPV (7.2-11.7) fL Neut % (Auto) (50.0-75.0) % Lymph % (Auto) (20.0-40.0) % [place] % (Auto) (0.0-10.0) % Eos % (Auto) (0.0-4.0) % Baso % (Auto) (0.0-2.0) % Neut # (Auto) (1.8-7.0) K/uL Lymph # (Auto) (1.0-4.3) K/uL [place] # (Auto) (0.0-0.8) K/uL Eos # (Auto) (0.0-0.7) K/uL Baso # (Auto) (0.0-0.2) K/uL PT (9.7-12.2) SECONDS INR APTT 55 H (21-34) SECONDS Puncture Site Rr pCO2 32 L (35-45) mm/Hg pO2 94 (80-100) mm/Hg HCO3 34.8 H (21-28) mmol/L ABG pH 7.64 H* (7.35-7.45) ABG Total CO2 35.4 H (22-28) mmol/L ABG O2 Saturation 98.8 H (95-98) % ABG Base Excess 12.6 H (-2.0-3.0) mmol/L ABG Hemoglobin 7.9 L (11.7-17.4) g/dL ABG Carboxyhemoglobin 2.2 H (0.5-1.5) % POC ABG HHb (Measured) 1.2 (0.0-5.0) % ABG Methemoglobin 1.3 (0.0-3.0) % Kevon Test Pos ABG Potassium (3.6-5.2) mmol/L A-a O2 Difference 294.0 mm/Hg Respiratory Index 3.1 Hgb O2 Saturation 95.3 (95.0-98.0) % Glucose (65-105) mg/dl Lactate (0.7-2.1) mmol/L Vent Mode Prvc Mechanical Rate 12 FiO2 60.0 % Tidal Volume 450 PEEP 5 Pressure Support Crit Value Called To Dr villanueva Crit Value Called By Silvano tleles/rt Crit Value Read Back Y Blood Gas Notified Time 500 Sodium (132-148) mmol/L Potassium (3.6-5.2) mmol/L Chloride (98-107) mmol/L Carbon Dioxide (22-30) mmol/L Anion Gap (10-20) BUN (7-17) mg/dL Creatinine (0.7-1.2) mg/dL Est GFR ( Amer) Est GFR (Non-Af Amer) POC Glucose (mg/dL) 285 H (65-110) mg/dL Random Glucose (65-105) mg/dL Calcium (8.6-10.4) mg/dl Phosphorus (2.5-4.5) mg/dL Magnesium (1.6-2.3) mg/dL Total Bilirubin (0.2-1.3) mg/dL AST (14-36) U/L ALT (9-52) U/L Alkaline Phosphatase (38-126) U/L Total Protein (6.3-8.3) g/dL Albumin (3.5-5.0) g/dL Globulin (2.2-3.9) gm/dL Albumin/Globulin Ratio (1.0-2.1) Thyroxine (T4) (5.5-11.0) ug/dL TSH 3rd Generation (0.46-4.68) mIU/L Arterial Blood Potassium (3.6-5.2) mmol/L ANCA Screen (NEGATIVE) c-ANCA Titer p-ANCA Titer Atypical p-ANCA Titer 07/08/18 Range/Units 23:06 WBC (4.8-10.8) K/uL RBC (3.80-5.20) Mil/uL Hgb (11.0-16.0) g/dL Hct (34.0-47.0) % MCV (81.0-99.0) fL MCH (27.0-31.0) pg MCHC (33.0-37.0) g/dL RDW (11.5-14.5) % Plt Count (130-400) K/uL MPV (7.2-11.7) fL Neut % (Auto) (50.0-75.0) % Lymph % (Auto) (20.0-40.0) % [place] % (Auto) (0.0-10.0) % Eos % (Auto) (0.0-4.0) % Baso % (Auto) (0.0-2.0) % Neut # (Auto) (1.8-7.0) K/uL Lymph # (Auto) (1.0-4.3) K/uL [place] # (Auto) (0.0-0.8) K/uL Eos # (Auto) (0.0-0.7) K/uL Baso # (Auto) (0.0-0.2) K/uL PT (9.7-12.2) SECONDS INR APTT (21-34) SECONDS Puncture Site pCO2 (35-45) mm/Hg pO2 (80-100) mm/Hg HCO3 (21-28) mmol/L ABG pH (7.35-7.45) ABG Total CO2 (22-28) mmol/L ABG O2 Saturation (95-98) % ABG Base Excess (-2.0-3.0) mmol/L ABG Hemoglobin (11.7-17.4) g/dL ABG Carboxyhemoglobin (0.5-1.5) % POC ABG HHb (Measured) (0.0-5.0) % ABG Methemoglobin (0.0-3.0) % Kevon Test ABG Potassium (3.6-5.2) mmol/L A-a O2 Difference mm/Hg Respiratory Index Hgb O2 Saturation (95.0-98.0) % Glucose (65-105) mg/dl Lactate (0.7-2.1) mmol/L Vent Mode Mechanical Rate FiO2 % Tidal Volume PEEP Pressure Support Crit Value Called To Crit Value Called By Crit Value Read Back Blood Gas Notified Time Sodium (132-148) mmol/L Potassium (3.6-5.2) mmol/L Chloride (98-107) mmol/L Carbon Dioxide (22-30) mmol/L Anion Gap (10-20) BUN (7-17) mg/dL Creatinine (0.7-1.2) mg/dL Est GFR ( Amer) Est GFR (Non-Af Amer) POC Glucose (mg/dL) (65-110) mg/dL Random Glucose (65-105) mg/dL Calcium (8.6-10.4) mg/dl Phosphorus (2.5-4.5) mg/dL Magnesium (1.6-2.3) mg/dL Total Bilirubin (0.2-1.3) mg/dL AST (14-36) U/L ALT (9-52) U/L Alkaline Phosphatase (38-126) U/L Total Protein (6.3-8.3) g/dL Albumin (3.5-5.0) g/dL Globulin (2.2-3.9) gm/dL Albumin/Globulin Ratio (1.0-2.1) Thyroxine (T4) (5.5-11.0) ug/dL TSH 3rd Generation (0.46-4.68) mIU/L Arterial Blood Potassium (3.6-5.2) mmol/L ANCA Screen Negative (NEGATIVE) c-ANCA Titer TNP p-ANCA Titer TNP Atypical p-ANCA Titer TNP Laboratory Results - last 24 hr 07/08/18 07/12/18 07/12/18 23:06 21:59 23:43 WBC RBC Hgb Hct MCV MCH MCHC RDW Plt Count MPV Neut % (Auto) Lymph % (Auto) [place] % (Auto) Eos % (Auto) Baso % (Auto) Neut # (Auto) Lymph # (Auto) [place] # (Auto) Eos # (Auto) Baso # (Auto) PT INR APTT 55 H Puncture Site pCO2 pO2 HCO3 ABG pH ABG Total CO2 ABG O2 Saturation ABG Base Excess ABG Hemoglobin ABG Carboxyhemoglobin POC ABG HHb (Measured) ABG Methemoglobin Kevon Test ABG Potassium A-a O2 Difference Respiratory Index Hgb O2 Saturation Glucose Lactate Vent Mode Mechanical Rate FiO2 Tidal Volume PEEP Pressure Support Crit Value Called To Crit Value Called By Crit Value Read Back Blood Gas Notified Time Sodium Potassium Chloride Carbon Dioxide Anion Gap BUN Creatinine Est GFR ( Amer) Est GFR (Non-Af Amer) POC Glucose (mg/dL) 285 H Random Glucose Calcium Phosphorus Magnesium Total Bilirubin AST ALT Alkaline Phosphatase Total Protein Albumin Globulin Albumin/Globulin Ratio Thyroxine (T4) TSH 3rd Generation Arterial Blood Potassium ANCA Screen Negative c-ANCA Titer TNP p-ANCA Titer TNP Atypical p-ANCA Titer TNP 07/13/18 07/13/18 07/13/18 04:30 05:33 06:30 WBC 11.0 H D RBC 2.95 L Hgb 8.8 L Hct 26.2 L MCV 88.8 MCH 30.0 MCHC 33.8 RDW 15.3 H Plt Count 143 MPV 8.9 Neut % (Auto) 68.0 Lymph % (Auto) 23.7 [place] % (Auto) 5.9 Eos % (Auto) 2.1 Baso % (Auto) 0.3 Neut # (Auto) 7.5 H Lymph # (Auto) 2.6 [place] # (Auto) 0.6 Eos # (Auto) 0.2 Baso # (Auto) 0.0 PT INR APTT Puncture Site Rr pCO2 32 L pO2 94 HCO3 34.8 H ABG pH 7.64 H* ABG Total CO2 35.4 H ABG O2 Saturation 98.8 H ABG Base Excess 12.6 H ABG Hemoglobin 7.9 L ABG Carboxyhemoglobin 2.2 H POC ABG HHb (Measured) 1.2 ABG Methemoglobin 1.3 Kevon Test Pos ABG Potassium A-a O2 Difference 294.0 Respiratory Index 3.1 Hgb O2 Saturation 95.3 Glucose Lactate Vent Mode Prvc Mechanical Rate 12 FiO2 60.0 Tidal Volume 450 PEEP 5 Pressure Support Crit Value Called To Dr villanueva Crit Value Called By Silvano telles/rt Crit Value Read Back Y Blood Gas Notified Time 500 Sodium Potassium Chloride Carbon Dioxide Anion Gap BUN Creatinine Est GFR ( Amer) Est GFR (Non-Af Amer) POC Glucose (mg/dL) 124 H Random Glucose Calcium Phosphorus Magnesium Total Bilirubin AST ALT Alkaline Phosphatase Total Protein Albumin Globulin Albumin/Globulin Ratio Thyroxine (T4) TSH 3rd Generation Arterial Blood Potassium ANCA Screen c-ANCA Titer p-ANCA Titer Atypical p-ANCA Titer 07/13/18 07/13/18 07/13/18 06:30 06:30 06:30 WBC RBC Hgb Hct MCV MCH MCHC RDW Plt Count MPV Neut % (Auto) Lymph % (Auto) [place] % (Auto) Eos % (Auto) Baso % (Auto) Neut # (Auto) Lymph # (Auto) [place] # (Auto) Eos # (Auto) Baso # (Auto) PT 16.1 H D INR 1.5 D APTT 57 H Puncture Site pCO2 pO2 HCO3 ABG pH ABG Total CO2 ABG O2 Saturation ABG Base Excess ABG Hemoglobin ABG Carboxyhemoglobin POC ABG HHb (Measured) ABG Methemoglobin Kevon Test ABG Potassium A-a O2 Difference Respiratory Index Hgb O2 Saturation Glucose Lactate Vent Mode Mechanical Rate FiO2 Tidal Volume PEEP Pressure Support Crit Value Called To Crit Value Called By Crit Value Read Back Blood Gas Notified Time Sodium 147 Potassium 2.8 L Chloride 105 Carbon Dioxide 33 H Anion Gap 12 BUN 43 H Creatinine 1.8 H Est GFR ( Amer) 36 Est GFR (Non-Af Amer) 30 POC Glucose (mg/dL) Random Glucose 108 H Calcium 7.5 L Phosphorus 1.2 L Magnesium 1.5 L Total Bilirubin 0.8 AST 78 H D ALT 175 H D Alkaline Phosphatase 121 Total Protein 4.8 L Albumin 2.3 L Globulin 2.6 Albumin/Globulin Ratio 0.9 L Thyroxine (T4) 13.0 H TSH 3rd Generation < 0.02 L Arterial Blood Potassium ANCA Screen c-ANCA Titer p-ANCA Titer Atypical p-ANCA Titer 07/13/18 07/13/18 07/13/18 10:48 11:10 11:45 WBC RBC Hgb Hct MCV MCH MCHC RDW Plt Count MPV Neut % (Auto) Lymph % (Auto) [place] % (Auto) Eos % (Auto) Baso % (Auto) Neut # (Auto) Lymph # (Auto) [place] # (Auto) Eos # (Auto) Baso # (Auto) PT INR APTT Puncture Site Rra pCO2 37 pO2 74 L HCO3 31.6 H ABG pH 7.54 H ABG Total CO2 32.7 H ABG O2 Saturation 97.4 ABG Base Excess 8.6 H ABG Hemoglobin ABG Carboxyhemoglobin POC ABG HHb (Measured) ABG Methemoglobin Kevon Test Pos ABG Potassium 3.0 L A-a O2 Difference 308.0 Respiratory Index 4.2 Hgb O2 Saturation Glucose 178 H Lactate 1.6 Vent Mode Cpap Mechanical Rate FiO2 60.0 Tidal Volume PEEP 5 Pressure Support 15 Crit Value Called To Crit Value Called By Crit Value Read Back Blood Gas Notified Time Sodium 145.0 Potassium Chloride 115.0 H Carbon Dioxide Anion Gap BUN Creatinine Est GFR ( Amer) Est GFR (Non-Af Amer) POC Glucose (mg/dL) 178 H 157 H Random Glucose Calcium Phosphorus Magnesium Total Bilirubin AST ALT Alkaline Phosphatase Total Protein Albumin Globulin Albumin/Globulin Ratio Thyroxine (T4) TSH 3rd Generation Arterial Blood Potassium 3.0 L ANCA Screen c-ANCA Titer p-ANCA Titer Atypical p-ANCA Titer 07/13/18 15:57 WBC RBC Hgb Hct MCV MCH MCHC RDW Plt Count MPV Neut % (Auto) Lymph % (Auto) [place] % (Auto) Eos % (Auto) Baso % (Auto) Neut # (Auto) Lymph # (Auto) [place] # (Auto) Eos # (Auto) Baso # (Auto) PT INR APTT Puncture Site pCO2 pO2 HCO3 ABG pH ABG Total CO2 ABG O2 Saturation ABG Base Excess ABG Hemoglobin ABG Carboxyhemoglobin POC ABG HHb (Measured) ABG Methemoglobin Kevon Test ABG Potassium A-a O2 Difference Respiratory Index Hgb O2 Saturation Glucose Lactate Vent Mode Mechanical Rate FiO2 Tidal Volume PEEP Pressure Support Crit Value Called To Crit Value Called By Crit Value Read Back Blood Gas Notified Time Sodium 146 Potassium 5.2 Chloride 107 Carbon Dioxide 32 H Anion Gap 12 BUN 37 H Creatinine 1.6 H Est GFR ( Amer) 41 Est GFR (Non-Af Amer) 34 POC Glucose (mg/dL) Random Glucose 173 H Calcium 7.3 L Phosphorus 4.7 H Magnesium 2.9 H Total Bilirubin 0.7 AST 83 H ALT 153 H Alkaline Phosphatase 122 Total Protein 4.9 L Albumin 2.4 L Globulin 2.5 Albumin/Globulin Ratio 0.9 L Thyroxine (T4) TSH 3rd Generation Arterial Blood Potassium ANCA Screen c-ANCA Titer p-ANCA Titer Atypical p-ANCA Titer <[place] M - Last Filed: 07/15/18 11:50> CCU Subjective - Physician Review Critical Care Time Spent (in minutes): 45 CCU Objective - Vital Signs / Intake & Output Vital Signs (Last 4 hours): Vital Signs Temp Pulse Resp BP Pulse Ox 07/15/18 09:45 94.6 F L 100 07/15/18 08:45 94.2 F L 100 07/15/18 08:00 57 L 12 106/61 100 Intake and Output (Last 8hrs): Intake & Output 07/14/18 07/15/18 07/15/18 22:59 06:59 14:59 Intake Total 1795.7 1052.0 95.3 Output Total 450 485 Balance 1345.7 567.0 95.3 Weight 128 lb 1.417 oz Intake: IV 207 332 35 Intake, IV Amount 503.7 260.0 15.3 Left Distal Port Femoral 18.4 Left Proximal Port 33.9 Femoral Right Distal Port 350 Right Distal Port 28 44.8 2.8 Subclavian Right Hand 30 40 5 Right Medial Port 5.8 Right Medial Port 18.8 75.2 7.5 Subclavian Right Proximal Port 18.8 Right Proximal Port 0 100 Subclavian Oral 100 100 Tube Feeding 360 360 45 Blood Product 325 Red Blood Cells Cpd As1 325 Lr Unit [id number] Other 300 Red Blood Cells Cpd As1 50 Lr Unit [id number] Output: Urine 450 485 Urethral (Mcintyre) 450 485 Other: # Bowel Movements 1 - Medications Active Medications: Active Medications Generic Name Dose Route Start Last Admin Trade Name Freq PRN Reason Stop Dose Admin Acetaminophen 650 mg 07/07/18 20:03 07/13/18 11:00 Tylenol 325mg Tab PO 650 mg Q6H PRN Administration Pain, moderate (4-7) Acetaminophen 650 mg 07/12/18 15:57 07/15/18 04:35 Tylenol 325mg Tab PO 650 mg Q6 PRN Administration Fever >100.4 F Albuterol/Ipratropium 3 ml 07/14/18 20:00 07/15/18 08:28 Duoneb 3 Mg/0.5 Mg (3 Ml) Ud INH 3 ml RQ6 MANOLO Administration Aspirin 81 mg 07/12/18 10:00 07/15/18 10:18 Ecotrin PO 81 mg DAILY MANOLO Administration Clopidogrel Bisulfate 75 mg 07/14/18 10:00 07/15/18 10:18 Plavix PO 75 mg DAILY MANOLO Administration Ergocalciferol 1 cap 07/11/18 12:45 07/11/18 14:50 Drisdol 50,000 Intl Units Cap PO 1 cap Q7D MANOLO Administration Heparin Sodium/Sodium Chloride 25,000 units in 250 mls @ 10.207 mls/hr 07/11/18 09:20 07/15/18 05:10 Heparin 76030 Units/250ml 1/2 Normal Saline IV 9 units/kg/hr .Q24H PRN 5.103 mls/hr PROTOCOL Administration Protocol 18 UNITS/KG/HR Norepinephrine Bitartrate 4 mg 254 mls @ 19.05 mls/hr 07/14/18 01:02 07/15/18 03:00 / Sodium Chloride IV 2 mcg/min .[id number] PRN 7.62 mls/hr TITRATE PER MD ORDER Titration Protocol 5 MCG/MIN Vancomycin HCl 1 gm/ Sodium 250 mls @ 166.7 mls/hr 07/14/18 18:00 07/14/18 18:36 Chloride IVPB 166.7 mls/hr Q24H MANOLO Administration Protocol Ceftriaxone Sodium 2 gm/ 100 mls @ 100 mls/hr 07/14/18 17:00 07/15/18 04:35 Sodium Chloride IVPB 100 mls/hr Q12H MANOLO Administration Protocol Insulin Aspart 0 unit 07/11/18 08:28 07/15/18 06:10 Novolog SC 4 units Q6 MANOLO Administration Protocol Insulin Glargine 10 unit 07/12/18 20:00 07/15/18 10:18 Lantus SC 10 units DAILY MANOLO Administration Lactobacillus Acidophilus 1 cap 07/08/18 20:00 07/15/18 10:18 Bacid Acidophilus PO 1 cap Q12H MANOLO Administration Methimazole 10 mg 07/11/18 10:00 07/14/18 17:33 Tapazole PO 10 mg TID MANOLO Administration Methylprednisolone 20 mg 07/14/18 10:00 07/15/18 10:19 Solu-Medrol IVP 20 mg DAILY MANOLO Administration Midodrine 2.5 mg 07/15/18 10:15 07/15/18 10:18 Proamatine PO 2.5 mg Q8H MANOLO Administration Ondansetron HCl 4 mg 07/07/18 18:00 07/08/18 13:06 Zofran Inj IVP 4 mg Q6H PRN Administration Nausea/Vomiting Pantoprazole Sodium 40 mg 07/11/18 10:00 07/15/18 10:18 Protonix Susp PO 40 mg BID MANOLO Administration Rosuvastatin Calcium 2.5 mg 07/13/18 22:00 07/14/18 21:20 Crestor PO 2.5 mg HS MANOLO Administration - Patient Studies Lab Studies: Microbiology Studies 07/14/18 13:01 Gram Stain - Final Trachasp 07/09/18 17:17 Blood Culture - Final Blood NO GROWTH AFTER 5 DAYS Gram Stain - Final TEST NOT PERFORMED 07/09/18 17:16 Blood Culture - Final Blood NO GROWTH AFTER 5 DAYS Gram Stain - Final TEST NOT PERFORMED 07/12/18 20:26 Gram Stain - Final Sputum Sputum Culture - Final Yeast Species Lab Studies 07/15/18 07/15/18 07/15/18 Range/Units 06:36 06:36 06:36 WBC 9.3 (4.8-10.8) K/uL RBC 3.13 L (3.80-5.20) Mil/uL Hgb 9.6 L D (11.0-16.0) g/dL Hct 28.2 L (34.0-47.0) % MCV 90.3 (81.0-99.0) fL MCH 30.7 (27.0-31.0) pg MCHC 34.0 (33.0-37.0) g/dL RDW 15.5 H (11.5-14.5) % Plt Count 133 (130-400) K/uL MPV 9.6 (7.2-11.7) fL Neut % (Auto) 81.8 H (50.0-75.0) % Lymph % (Auto) 8.5 L (20.0-40.0) % [place] % (Auto) 9.6 (0.0-10.0) % Eos % (Auto) 0.0 (0.0-4.0) % Baso % (Auto) 0.1 (0.0-2.0) % Neut # (Auto) 7.6 H (1.8-7.0) K/uL Lymph # (Auto) 0.8 L (1.0-4.3) K/uL [place] # (Auto) 0.9 H (0.0-0.8) K/uL Eos # (Auto) 0.0 (0.0-0.7) K/uL Baso # (Auto) 0.0 (0.0-0.2) K/uL Neutrophils % (Manual) 77 H (50-75) % Band Neutrophils % 8 H (0-2) % Lymphocytes % (Manual) 7 L (20-40) % Monocytes % (Manual) 8 (0-10) % Toxic Granulation Present Platelet Estimate Normal (NORMAL) Large Platelets Present Polychromasia Slight Hypochromasia (manual) Slight Poikilocytosis (manual Slight Basophilic Stippling Slight Anisocytosis (manual) Slight Macrocytosis (manual) Slight Ovalocytes Slight Schistocytes Slight APTT 42 H D (21-34) SECONDS Sodium (132-148) mmol/L Potassium (3.6-5.2) mmol/L Chloride (98-107) mmol/L Carbon Dioxide (22-30) mmol/L Anion Gap (10-20) BUN (7-17) mg/dL Creatinine (0.7-1.2) mg/dL Est GFR ( Amer) Est GFR (Non-Af Amer) POC Glucose (mg/dL) (65-110) mg/dL Random Glucose (65-105) mg/dL Calcium (8.6-10.4) mg/dl Phosphorus (2.5-4.5) mg/dL Magnesium (1.6-2.3) mg/dL Total Bilirubin (0.2-1.3) mg/dL AST (14-36) U/L ALT (9-52) U/L Alkaline Phosphatase (38-126) U/L Total Protein (6.3-8.3) g/dL Albumin (3.5-5.0) g/dL Globulin (2.2-3.9) gm/dL Albumin/Globulin Ratio (1.0-2.1) Free T4 3.02 H (0.78-2.19) ng/dL Thyroxine (T4) (5.5-11.0) ug/dL TSH 3rd Generation (0.46-4.68) mIU/L Thyroid Stim Immunoglob (<140) % baseline Blood Type Blood Type Confirm Antibody Screen 07/15/18 07/15/18 07/14/18 Range/Units 06:36 06:01 23:44 WBC (4.8-10.8) K/uL RBC (3.80-5.20) Mil/uL Hgb (11.0-16.0) g/dL Hct (34.0-47.0) % MCV (81.0-99.0) fL MCH (27.0-31.0) pg MCHC (33.0-37.0) g/dL RDW (11.5-14.5) % Plt Count (130-400) K/uL MPV (7.2-11.7) fL Neut % (Auto) (50.0-75.0) % Lymph % (Auto) (20.0-40.0) % [place] % (Auto) (0.0-10.0) % Eos % (Auto) (0.0-4.0) % Baso % (Auto) (0.0-2.0) % Neut # (Auto) (1.8-7.0) K/uL Lymph # (Auto) (1.0-4.3) K/uL [place] # (Auto) (0.0-0.8) K/uL Eos # (Auto) (0.0-0.7) K/uL Baso # (Auto) (0.0-0.2) K/uL Neutrophils % (Manual) (50-75) % Band Neutrophils % (0-2) % Lymphocytes % (Manual) (20-40) % Monocytes % (Manual) (0-10) % Toxic Granulation Platelet Estimate (NORMAL) Large Platelets Polychromasia Hypochromasia (manual) Poikilocytosis (manual Basophilic Stippling Anisocytosis (manual) Macrocytosis (manual) Ovalocytes Schistocytes APTT (21-34) SECONDS Sodium 146 (132-148) mmol/L Potassium 4.3 (3.6-5.2) mmol/L Chloride 113 H (98-107) mmol/L Carbon Dioxide 25 (22-30) mmol/L Anion Gap 12 (10-20) BUN 35 H (7-17) mg/dL Creatinine 1.3 H (0.7-1.2) mg/dL Est GFR ( Amer) 52 Est GFR (Non-Af Amer) 43 POC Glucose (mg/dL) 231 H 290 H (65-110) mg/dL Random Glucose 201 H (65-105) mg/dL Calcium 6.9 L (8.6-10.4) mg/dl Phosphorus 3.4 (2.5-4.5) mg/dL Magnesium 2.0 (1.6-2.3) mg/dL Total Bilirubin 0.6 (0.2-1.3) mg/dL AST 30 (14-36) U/L ALT 86 H D (9-52) U/L Alkaline Phosphatase 103 (38-126) U/L Total Protein 4.8 L (6.3-8.3) g/dL Albumin 2.2 L (3.5-5.0) g/dL Globulin 2.6 (2.2-3.9) gm/dL Albumin/Globulin Ratio 0.8 L (1.0-2.1) Free T4 (0.78-2.19) ng/dL Thyroxine (T4) 8.26 (5.5-11.0) ug/dL TSH 3rd Generation < 0.02 L (0.46-4.68) mIU/L Thyroid Stim Immunoglob (<140) % baseline Blood Type Blood Type Confirm Antibody Screen 07/14/18 07/14/18 07/14/18 Range/Units 17:34 11:31 10:49 WBC (4.8-10.8) K/uL RBC (3.80-5.20) Mil/uL Hgb (11.0-16.0) g/dL Hct (34.0-47.0) % MCV (81.0-99.0) fL MCH (27.0-31.0) pg MCHC (33.0-37.0) g/dL RDW (11.5-14.5) % Plt Count (130-400) K/uL MPV (7.2-11.7) fL Neut % (Auto) (50.0-75.0) % Lymph % (Auto) (20.0-40.0) % [place] % (Auto) (0.0-10.0) % Eos % (Auto) (0.0-4.0) % Baso % (Auto) (0.0-2.0) % Neut # (Auto) (1.8-7.0) K/uL Lymph # (Auto) (1.0-4.3) K/uL [place] # (Auto) (0.0-0.8) K/uL Eos # (Auto) (0.0-0.7) K/uL Baso # (Auto) (0.0-0.2) K/uL Neutrophils % (Manual) (50-75) % Band Neutrophils % (0-2) % Lymphocytes % (Manual) (20-40) % Monocytes % (Manual) (0-10) % Toxic Granulation Platelet Estimate (NORMAL) Large Platelets Polychromasia Hypochromasia (manual) Poikilocytosis (manual Basophilic Stippling Anisocytosis (manual) Macrocytosis (manual) Ovalocytes Schistocytes APTT (21-34) SECONDS Sodium (132-148) mmol/L Potassium (3.6-5.2) mmol/L Chloride (98-107) mmol/L Carbon Dioxide (22-30) mmol/L Anion Gap (10-20) BUN (7-17) mg/dL Creatinine (0.7-1.2) mg/dL Est GFR ( Amer) Est GFR (Non-Af Amer) POC Glucose (mg/dL) 389 H 235 H (65-110) mg/dL Random Glucose (65-105) mg/dL Calcium (8.6-10.4) mg/dl Phosphorus (2.5-4.5) mg/dL Magnesium (1.6-2.3) mg/dL Total Bilirubin (0.2-1.3) mg/dL AST (14-36) U/L ALT (9-52) U/L Alkaline Phosphatase (38-126) U/L Total Protein (6.3-8.3) g/dL Albumin (3.5-5.0) g/dL Globulin (2.2-3.9) gm/dL Albumin/Globulin Ratio (1.0-2.1) Free T4 (0.78-2.19) ng/dL Thyroxine (T4) (5.5-11.0) ug/dL TSH 3rd Generation (0.46-4.68) mIU/L Thyroid Stim Immunoglob (<140) % baseline Blood Type A POSITIVE Blood Type Confirm A POSITIVE Antibody Screen Negative 07/11/18 Range/Units 05:49 WBC (4.8-10.8) K/uL RBC (3.80-5.20) Mil/uL Hgb (11.0-16.0) g/dL Hct (34.0-47.0) % MCV (81.0-99.0) fL MCH (27.0-31.0) pg MCHC (33.0-37.0) g/dL RDW (11.5-14.5) % Plt Count (130-400) K/uL MPV (7.2-11.7) fL Neut % (Auto) (50.0-75.0) % Lymph % (Auto) (20.0-40.0) % [place] % (Auto) (0.0-10.0) % Eos % (Auto) (0.0-4.0) % Baso % (Auto) (0.0-2.0) % Neut # (Auto) (1.8-7.0) K/uL Lymph # (Auto) (1.0-4.3) K/uL [place] # (Auto) (0.0-0.8) K/uL Eos # (Auto) (0.0-0.7) K/uL Baso # (Auto) (0.0-0.2) K/uL Neutrophils % (Manual) (50-75) % Band Neutrophils % (0-2) % Lymphocytes % (Manual) (20-40) % Monocytes % (Manual) (0-10) % Toxic Granulation Platelet Estimate (NORMAL) Large Platelets Polychromasia Hypochromasia (manual) Poikilocytosis (manual Basophilic Stippling Anisocytosis (manual) Macrocytosis (manual) Ovalocytes Schistocytes APTT (21-34) SECONDS Sodium (132-148) mmol/L Potassium (3.6-5.2) mmol/L Chloride (98-107) mmol/L Carbon Dioxide (22-30) mmol/L Anion Gap (10-20) BUN (7-17) mg/dL Creatinine (0.7-1.2) mg/dL Est GFR ( Amer) Est GFR (Non-Af Amer) POC Glucose (mg/dL) (65-110) mg/dL Random Glucose (65-105) mg/dL Calcium (8.6-10.4) mg/dl Phosphorus (2.5-4.5) mg/dL Magnesium (1.6-2.3) mg/dL Total Bilirubin (0.2-1.3) mg/dL AST (14-36) U/L ALT (9-52) U/L Alkaline Phosphatase (38-126) U/L Total Protein (6.3-8.3) g/dL Albumin (3.5-5.0) g/dL Globulin (2.2-3.9) gm/dL Albumin/Globulin Ratio (1.0-2.1) Free T4 (0.78-2.19) ng/dL Thyroxine (T4) (5.5-11.0) ug/dL TSH 3rd Generation (0.46-4.68) mIU/L Thyroid Stim Immunoglob 92 (<140) % baseline Blood Type Blood Type Confirm Antibody Screen Laboratory Results - last 24 hr 07/11/18 07/14/18 07/14/18 05:49 10:49 11:31 WBC RBC Hgb Hct MCV MCH MCHC RDW Plt Count MPV Neut % (Auto) Lymph % (Auto) [place] % (Auto) Eos % (Auto) Baso % (Auto) Neut # (Auto) Lymph # (Auto) [place] # (Auto) Eos # (Auto) Baso # (Auto) Neutrophils % (Manual) Band Neutrophils % Lymphocytes % (Manual) Monocytes % (Manual) Toxic Granulation Platelet Estimate Large Platelets Polychromasia Hypochromasia (manual) Poikilocytosis (manual Basophilic Stippling Anisocytosis (manual) Macrocytosis (manual) Ovalocytes Schistocytes APTT Sodium Potassium Chloride Carbon Dioxide Anion Gap BUN Creatinine Est GFR ( Amer) Est GFR (Non-Af Amer) POC Glucose (mg/dL) 235 H Random Glucose Calcium Phosphorus Magnesium Total Bilirubin AST ALT Alkaline Phosphatase Total Protein Albumin Globulin Albumin/Globulin Ratio Free T4 Thyroxine (T4) TSH 3rd Generation Thyroid Stim Immunoglob 92 Blood Type A POSITIVE Blood Type Confirm A POSITIVE Antibody Screen Negative 07/14/18 07/14/18 07/15/18 17:34 23:44 06:01 WBC RBC Hgb Hct MCV MCH MCHC RDW Plt Count MPV Neut % (Auto) Lymph % (Auto) [place] % (Auto) Eos % (Auto) Baso % (Auto) Neut # (Auto) Lymph # (Auto) [place] # (Auto) Eos # (Auto) Baso # (Auto) Neutrophils % (Manual) Band Neutrophils % Lymphocytes % (Manual) Monocytes % (Manual) Toxic Granulation Platelet Estimate Large Platelets Polychromasia Hypochromasia (manual) Poikilocytosis (manual Basophilic Stippling Anisocytosis (manual) Macrocytosis (manual) Ovalocytes Schistocytes APTT Sodium Potassium Chloride Carbon Dioxide Anion Gap BUN Creatinine Est GFR ( Amer) Est GFR (Non-Af Amer) POC Glucose (mg/dL) 389 H 290 H 231 H Random Glucose Calcium Phosphorus Magnesium Total Bilirubin AST ALT Alkaline Phosphatase Total Protein Albumin Globulin Albumin/Globulin Ratio Free T4 Thyroxine (T4) TSH 3rd Generation Thyroid Stim Immunoglob Blood Type Blood Type Confirm Antibody Screen 07/15/18 07/15/18 07/15/18 06:36 06:36 06:36 WBC 9.3 RBC 3.13 L Hgb 9.6 L D Hct 28.2 L MCV 90.3 MCH 30.7 MCHC 34.0 RDW 15.5 H Plt Count 133 MPV 9.6 Neut % (Auto) 81.8 H Lymph % (Auto) 8.5 L [place] % (Auto) 9.6 Eos % (Auto) 0.0 Baso % (Auto) 0.1 Neut # (Auto) 7.6 H Lymph # (Auto) 0.8 L [place] # (Auto) 0.9 H Eos # (Auto) 0.0 Baso # (Auto) 0.0 Neutrophils % (Manual) 77 H Band Neutrophils % 8 H Lymphocytes % (Manual) 7 L Monocytes % (Manual) 8 Toxic Granulation Present Platelet Estimate Normal Large Platelets Present Polychromasia Slight Hypochromasia (manual) Slight Poikilocytosis (manual Slight Basophilic Stippling Slight Anisocytosis (manual) Slight Macrocytosis (manual) Slight Ovalocytes Slight Schistocytes Slight APTT Sodium 146 Potassium 4.3 Chloride 113 H Carbon Dioxide 25 Anion Gap 12 BUN 35 H Creatinine 1.3 H Est GFR ( Amer) 52 Est GFR (Non-Af Amer) 43 POC Glucose (mg/dL) Random Glucose 201 H Calcium 6.9 L Phosphorus 3.4 Magnesium 2.0 Total Bilirubin 0.6 AST 30 ALT 86 H D Alkaline Phosphatase 103 Total Protein 4.8 L Albumin 2.2 L Globulin 2.6 Albumin/Globulin Ratio 0.8 L Free T4 3.02 H Thyroxine (T4) 8.26 TSH 3rd Generation < 0.02 L Thyroid Stim Immunoglob Blood Type Blood Type Confirm Antibody Screen 07/15/18 06:36 WBC RBC Hgb Hct MCV MCH MCHC RDW Plt Count MPV Neut % (Auto) Lymph % (Auto) [place] % (Auto) Eos % (Auto) Baso % (Auto) Neut # (Auto) Lymph # (Auto) [place] # (Auto) Eos # (Auto) Baso # (Auto) Neutrophils % (Manual) Band Neutrophils % Lymphocytes % (Manual) Monocytes % (Manual) Toxic Granulation Platelet Estimate Large Platelets Polychromasia Hypochromasia (manual) Poikilocytosis (manual Basophilic Stippling Anisocytosis (manual) Macrocytosis (manual) Ovalocytes Schistocytes APTT 42 H D Sodium Potassium Chloride Carbon Dioxide Anion Gap BUN Creatinine Est GFR ( Amer) Est GFR (Non-Af Amer) POC Glucose (mg/dL) Random Glucose Calcium Phosphorus Magnesium Total Bilirubin AST ALT Alkaline Phosphatase Total Protein Albumin Globulin Albumin/Globulin Ratio Free T4 Thyroxine (T4) TSH 3rd Generation Thyroid Stim Immunoglob Blood Type Blood Type Confirm Antibody Screen Assessment/Plan - Assessment and Plan (Free Text) Assessment: Patient admitted to ICU for diarrhea and sepsis with prolonged ICU course with intubation and cardic arrest -Cardiac arrest: etiology unknown, currently on IV heparin 2nd lowe EF and clot in left aventricle, cardiology input regarding asa/palvix, and av aixa sandra -ANoxic brain injury: avoid all sedation to evalute underlying mental condition -HYpoxic respiratory failure: continue ventilation to keep spo2 >92 and pH b/w 7.35-7.45 -Hyperthyroidism: possible etiology, IV amiodarone, d/c iv and oral miodarone, continue methimazole and IV propanolol (noncardioselective beta sandra) -severe metabolic and respiratory alkalosis: avoid lasix, replace electrolytes and place patient on CPAP -DVT ppx IV heparin -PUD ppx protonix -prognosis poor as patient's mental status very poor (titrate off precedex) -cc time 45 minutes - Date & Time Date: 07/13/18 Time: 22:00
[2018-07-13] MEDS: Rosuvastatin Calcium 2.5 mg Tab PO SCH (21:40)
[2018-07-13] MEDS ORDERED: Sodium Chloride 0.9% 500 ML IV ONE (23:38)
[2018-07-14] MEDS ORDERED: Sodium Chloride 0.9% 500 ML IV ONE (00:33)
[2018-07-14] MEDS: Meropenem 500 MG in Sodium Chloride 0.9% 100 ML IVPB SCH ×2 (00:40→13:00)
[2018-07-14] MEDS: Albuterol-Ipratrop 3 mg / 0.5 (3 ml) UD INH SCH ×4 (03:22→19:49)
[2018-07-14] MEDS: Propranolol 1 mg/mL Inj IVP SCH ×4 (04:00→22:15)
[2018-07-14 04:47] LABS: ABG ALLEN TEST POS; ARTERIAL BLOOD GAS HCO3 26.1 mmol/L (21-28); ARTERIAL BLOOD GAS HEMOGLOBIN 8.2 g/dL (11.7-17.4); ARTERIAL BLOOD GAS O2 SAT 97.5 % (95-98); ARTERIAL BLOOD GAS PCO2 39 mm/Hg (35-45); ARTERIAL BLOOD GAS PH 7.43 (7.35-7.45); ARTERIAL BLOOD GAS PO2 72 mm/Hg (80-100); ARTERIAL BLOOD GAS TCO2 27.1 mmol/L (22-28)
[2018-07-14] MEDS: Dexmedetomidine Hydrochloride 200 MCG in Sodium Chloride 0.9% 48 ML IV PRN ×2 (05:55→15:06)
[2018-07-14] MEDS: (Novolog) Insulin Aspart, Recombinant 100 u/ml 10 ml vial SC SCH ×4 (06:00→17:37)
[2018-07-14 06:41] LABS: BASO % 0.3 % (0.0-2.0); EOS # 0.4 K/uL (0.0-0.7); HEMOGLOBIN 7.4 g/dL (11.0-16.0); LYMPH # 1.3 K/uL (1.0-4.3); LYMPH % 15.2 % (20.0-40.0); MEAN CELL VOLUME 91.4 fL (81.0-99.0); MEAN CORPUSCULAR HEMOGLOBIN 30.3 pg (27.0-31.0); MEAN CORPUSCULAR HGB CONC 33.1 g/dL (33.0-37.0); MEAN PLATELET VOLUME 9.5 fL (7.2-11.7); MONO # 0.7 K/uL (0.0-0.8); MONO % 7.6 % (0.0-10.0); NEUT # 6.4 K/uL (1.8-7.0); NEUT % 72.9 % (50.0-75.0); NRBC % 0.4 % (0.0-2.0); RBC 2.46 Mil/uL (3.80-5.20); RED CELL DISTRIBUTION WIDTH 15.8 % (11.5-14.5); WHITE BLOOD COUNT 8.8 K/uL (4.8-10.8)
[2018-07-14 06:48] LABS: ALB/GLOB RATIO 0.8 (1.0-2.1); CALCIUM 6.7 mg/dl (8.6-10.4)
[2018-07-14] MEDS: Lactobacillus Acidophilus 500 MU Cap PO SCH ×2 (08:32→21:00)
--- NOTE | 2018-07-14 09:15 | CT ---
Date of service: 07/13/2018 PROCEDURE: CT HEAD WITHOUT CONTRAST. HISTORY: AMS COMPARISON: None available. TECHNIQUE: Axial computed tomography images were obtained through the head/brain without intravenous contrast. Radiation dose: Total exam DLP = 2362.02 mGy-cm. This CT exam was performed using one or more of the following dose reduction techniques: Automated exposure control, adjustment of the mA and/or kV according to patient size, and/or use of iterative reconstruction technique. FINDINGS: HEMORRHAGE: No intracranial hemorrhage. BRAIN: There are mild chronic microangiopathic changes. There is no mass, mass effect or abnormal extra-axial fluid collection. There is no territorial infarction. The midline sagittal structures are normal. VENTRICLES: There is mild age-related global parenchymal volume loss and proportionate enlargement of the ventricles and cortical sulci. CALVARIUM: There is marked hyperostosis frontalis interna. PARANASAL SINUSES: Predominantly clear. MASTOID AIR CELLS: Predominantly clear. OTHER FINDINGS: None. IMPRESSION: No acute intracranial abnormality. A preliminary report was provided by [facility].
--- NOTE | 2018-07-14 09:31 | CP.PCM.PN ---
Subjective - Date & Time of Evaluation Date of Evaluation: 07/14/18 Time of Evaluation: 09:30 - Subjective Subjective: Medical Attending Note patient seen at bedside. no family present. patient remains intubated. moving extremities spontaneous, and breathing with vent, respond to irritative stimuli. Unable to ROS secondary to clinical condition. Objective - Vital Signs/Intake and Output Vital Signs (last 24 hours): Temp Pulse Resp BP Pulse Ox 99.5 F 91 H 22 114/53 L 100 07/14/18 08:00 07/14/18 09:08 07/14/18 09:08 07/14/18 09:08 07/14/18 09:08 Intake and Output: 07/14/18 07/14/18 06:59 18:59 Intake Total 1929.0 301.9 Output Total 440 115 Balance 1489.0 186.9 - Medications Medications: Current Medications Acetaminophen (Tylenol 325mg Tab) 650 mg PO Q6H PRN PRN Reason: Pain, moderate (4-7) Last Admin: 07/13/18 11:00 Dose: 650 mg Acetaminophen (Tylenol 325mg Tab) 650 mg PO Q6 PRN PRN Reason: Fever >100.4 F Albuterol/Ipratropium (Duoneb 3 Mg/0.5 Mg (3 Ml) Ud) 3 ml INH RQ4 [facility] Last Admin: 07/14/18 08:16 Dose: 3 ml Aspirin (Ecotrin) 81 mg PO DAILY [facility] Last Admin: 07/13/18 09:52 Dose: 81 mg Clopidogrel Bisulfate (Plavix) 75 mg PO DAILY [facility] Ergocalciferol (Drisdol 50,000 Intl Units Cap) 1 cap PO Q7D [facility] Last Admin: 07/11/18 14:50 Dose: 1 cap Meropenem 500 mg/ Sodium (Chloride) 100 mls @ 100 mls/hr IVPB Q12H [facility]; Protocol Last Admin: 07/14/18 00:40 Dose: 100 mls/hr Heparin Sodium/Sodium Chloride (Heparin 27847 Units/250ml 1/2 Normal Saline) 25,000 units in 250 mls @ 10.207 mls/hr IV .Q24H PRN; Protocol PRN Reason: PROTOCOL Last Admin: 07/13/18 02:00 Dose: 9 units/kg/hr, 5.103 mls/hr Dexmedetomidine HCl 200 mcg/ (Sodium Chloride) 50 mls @ 2.79 mls/hr IV TITR PRN; Protocol PRN Reason: Sedation Last Titration: 07/14/18 08:59 Dose: 0.3 mcg/kg/hr, 4.18 mls/hr Norepinephrine Bitartrate 4 mg (/ Sodium Chloride) 254 mls @ 19.05 mls/hr IV .[id number] PRN; Protocol PRN Reason: TITRATE PER MD ORDER Last Titration: 07/14/18 05:00 Dose: 3 mcg/min, 11.43 mls/hr Insulin Aspart (Novolog) 0 unit SC Q6 [facility]; Protocol Last Admin: 07/14/18 06:00 Dose: Not Given Insulin Glargine (Lantus) 10 unit SC DAILY [facility] Last Admin: 07/13/18 09:00 Dose: Not Given Lactobacillus Acidophilus (Bacid Acidophilus) 1 cap PO Q12H [facility] Last Admin: 07/14/18 08:32 Dose: 1 cap Methimazole (Tapazole) 10 mg PO TID [facility] Last Admin: 07/13/18 17:38 Dose: 10 mg Methylprednisolone (Solu-Medrol) 20 mg IVP DAILY [facility] Ondansetron HCl (Zofran Inj) 4 mg IVP Q6H PRN PRN Reason: Nausea/Vomiting Last Admin: 07/08/18 13:06 Dose: 4 mg Pantoprazole Sodium (Protonix Susp) 40 mg PO BID [facility] Last Admin: 07/13/18 17:38 Dose: 40 mg Propranolol HCl (Propranolol Inj) 1 mg IVP Q6H [facility] Last Admin: 07/14/18 04:00 Dose: Not Given Rosuvastatin Calcium (Crestor) 2.5 mg PO HS [facility] Last Admin: 07/13/18 21:40 Dose: 2.5 mg - Labs Labs: 07/14/18 06:31 07/14/18 06:32 PT 16.1 SECONDS (9.7-12.2) H D 07/13/18 06:30 INR 1.5 D 07/13/18 06:30 APTT 58 SECONDS (21-34) H 07/14/18 06:31 - Constitutional Appears: Chronically Ill - Head Exam Head Exam: NORMAL INSPECTION - Eye Exam Eye Exam: absent: EOMI - ENT Exam ENT Exam: Mucous Membranes Dry - Respiratory Exam Respiratory Exam: Decreased Breath Sounds, Rales, Rhonchi Additional comments: intubated on vent - GI/Abdominal Exam GI & Abdominal Exam: Soft, Normal Bowel Sounds. absent: Distended, Firm, Guarding, Rigid, Tenderness, Rebound - Extremities Exam Extremities Exam: Pedal Edema (trace). absent: Tenderness Additional comments: muscle wasting prevalon boots - Skin Skin Exam: Dry, Intact, Normal Color, Warm Assessment and Plan (1) Septic shock Status: Acute (2) Acute respiratory failure Status: Acute (3) Urinary tract infection Status: Acute (4) Acute renal failure Status: Acute (5) Aspiration pneumonia Status: Acute (6) Diabetes mellitus Status: Chronic (7) Ventricular arrhythmia Status: Acute (8) Hyperthyroidism Status: Acute (9) Anemia Status: Acute (10) Prophylactic measure Status: Acute Attending/Attestation - Attestation I have personally seen and examined this patient.: Yes I have fully participated in the care of the patient.: Yes I have reviewed all pertinent clinical information, including history, physical exam and plan: Yes Notes (Text): 07/14/18 09:31 1) Septic Shock Assessment/Plan * Infectious Disease (Dr. Brock) on case-->help appreciated * Criteria: leukocytosis, tachycardia * Source: aspiration pneumonia and urinary tract infection * 07/07/18: Urine: E. Coli * 07/09/18: Urine: No growth * 07/07/18: blood culture: no growth after 5 days X2 * 07/09/18 Blood culture: no growth after 3 days X2 * MRSA not detected * Meropenem 500mg IV Q12 (active since 05/20) * Off pressors, On fentanyl 2) Acute Respiratory Failure Pulmonary Edema Assessment/Plan * Intubated * Solcortef 20mg qV Qdaily * Duonebs RQ6H PRN wheezing * Duonebs RQ6H * Sputum culture: yeast * MRSA screen pending 3) Ventricular Tachycardia Nonstemi Apical Thrombus Assessment/Plan * Code Blue 07/10: SVT==>VT required amiodarone, magnesium, one shock delivered, ordered for ekg, lizette, echo, and cardiology evaluation * Cardiology Dr Francisco on case help appreciated * When patient is stabilized will need further cardiac workup * Echocardiogram (07/07/18): left ventricle systolic function is borderline, ejection fraction is 45-50%, no aortic regurgitation is present, mitral regurgitation is mild. Mild tricuspid regurgitation. mild pulmonary hypertension, mild pulmonic valvular regurgitation * Contrast echo: Large apical hypokinesis a large 30 x 20 mm soft tissue apical sessile mass suggestive of thrombus overall fraction 40%. Obtain a HUBERT or/consider stress card myopathy if coronary disease is excluded further findings per report * Amiodarone 200 mg once a day * Monitor electrolytes * Patient to start heparin drip in light of apical thrombus * Cardizem drip started on July 12 4) Urinary Tract Infection Assessment/Plan * Infectious disease on board help appreciated * 07/07/18: Urine: E. Coli * 07/09/18: Urine: No growth * Meropenem 1mg IV Q8H (active since 07/13/18) 4) Aspiration Pneumonia Assessment/Plan * Patient is on meropenem since 07/10/2018 * Mycoplasma negative * Legionella was negative * Influenza negative * HIV negative 5) Diabetes Assessment/Plan * a1c: 7.8 * hypoglycemic protocol * novolog unit subq * Lantus 10 units subcutaneous at bedtime 6) Acute on Chronic Renal Failure Assessment/Plan * Nephrology (Dr. Hyde) on board--> help appreciated * Second dialysis cancelled secondary to code blue earlier July 10 * We'll continue diuresis * Patient will likely not need dialysis. * On Lasix 40 mg IV twice a day 7) Hyperthyroidism? Low TSH, and Free T4 Assessment/Plan * Note Thyroid studies taken before amiodarone was given * Patient does not have prior thyroid history * Endocrinology (Dr. Gayle) on board help appreciated * c/w apazole 10mg PO TID * Monitor LFTs 8) Anemia Assessment/Plan * iron normal, TIBC low, iron sat normal, ferritin normal * pending stool occult blood and reticulocte count * B12 normal * Folate Normal * H/H downtrending while on heparin 9) Transminitis * related to sepsis and also patient is on amiodarone * Hepatitis serology negative 10) vitamin D deficiency Assessment plan * 50,000 international units once a week for at least 8-12 weeks started on July 11 11) Thrombocytopenia Assessment plan * related to HIT or sepsis? * patient has been on heparin drip * ordered for fibrinogen, hit, and colette * (patient is on plavix/aspirin) * side effect of methiazole? 12) Prophylactic measure * Protonix 40mg PO BID * Precedex drip * Propranolol 1mg IVP Q6H * Heparin drip * 1 pressor per icu for weaning protocol
[2018-07-14] MEDS: MethylPREDNISolone 40 mg Vial IVP SCH (09:54)
[2018-07-14] MEDS: Pantoprazole 40 mg Susp UD PO SCH ×2 (09:54→17:33)
[2018-07-14] MEDS: (Lantus) Insulin Glargine, Recombinant SC SCH (10:04)
--- NOTE | 2018-07-14 13:12 | CP.PCM.PN ---
Subjective - Date & Time of Evaluation Date of Evaluation: 07/14/18 Time of Evaluation: 13:12 - Subjective Subjective: Nephrology Consultation Note Assessment: critical Acute Kidney Injury (N17.9) likely due to ATN, r/o GN (so far w/up emery) septic shock, acute respi failure, UTI/aspiration pneumonitis and pulm edemaf Diabetic chronic Kidney Disease (E11.22) Hypertensive Chronic Kidney Disease (I12.9) Chronic Kidney Disease (N18.3) Stage 3 with 740 mg proteinuria (R80.9) likely due to DM/HTN, baseline cr 1.2 Anemia (D64.9), Hyperphosphatemia (E83.39), Hypocalcemia ? hyperthyroidism. V tach and cardiac arrest hypokalemia, hypomag, hypophos apical thrombus with sys CHF LVEf 40% Plan no further need of dialysis. can remove dialysis catheter from renal perspective at the earliest Maintain hemodynamics stable. Avoid hypotension. Patient not on ACEI/ARB due to recent NEHA Monitor Input/Output, daily weights and renal function with basic metabolic panel started weekly Vit D supplement lytes as needed held lasix due to alkalemia. free water flushes with tube feed 250 mL 3 times a day d/w RN Check GN work up as LIA, Anti dsDNA, ANCA (MPO and MD-3), Anti GBM antibody Anemia work up with TSAT/Ferritin/Vitamin B12/folate Check for 25-OH vitamin D, iPTH work up for adrenal adenoma as outpt. work up for suppressed TSH as per primary team/endocrine Dose meds/antibiotics for reduced GFR. Avoid fleets enema/magnesium based laxatives. Avoid nephrotoxins/NSAIDs/ iodinated contrast (unless needed emergently) Glycemic control Further work up for as per primary team Thanks for allowing me to participate in care of your patient. Will follow patient with you. Please call if any Qs. d/w family and team. Dr Enrique Richards Office: [phone] Subjective: Noted events overnight. Patients intubated/sedated. on levophed s/p V Tach and cardiac arrest Physical Examination: General Appearance: in no acute respiratory distress, ill appearing Vitals reviewed and noted as below Head; Atraumatic, normocephalic ENT: orally intubated Neck; supple no lymphadenopathy, no thyromegaly or bruit Lungs: Normal respiratory rate/effort. Breath sounds bilateral with basal rales Heart: Increasedl rate. s1s2 normal. No rub or gallop. Extremities: no pedal edema. No varicose veins Neurological: Patient is sedated Skin: Warm and dry. Normal turgor. No rash. Palpitation: Normal elasticity for age Abdomen: Abdomen is soft. Bowel sounds +. There is no abdominal tenderness, no guarding/rigidity no organomegaly Psych: unable MSK: no joint tenderness or swelling. Digits and nails normal, no deformity : kidney or bladder not palpable. has mcintyre + Labs/imaging reviewed. Past medical history, past surgical history, family history, social history, allergy reviewed and noted as below Family hx: no hx of CKD. Rest non-contributory work up: 1.4 mm left adrenal adenoma uA 2+ protein 2+ blood c3/c4 normal. HIV/Hep B and C neg TSH <0.02 Objective - Vital Signs/Intake and Output Vital Signs (last 24 hours): Temp Pulse Resp BP Pulse Ox 102.1 F H 143 H 20 129/79 98 07/14/18 12:00 07/14/18 12:19 07/14/18 12:19 07/14/18 12:19 07/14/18 12:19 Intake and Output: 07/14/18 07/14/18 06:59 18:59 Intake Total 1929.0 769.0 Output Total 440 215 Balance 1489.0 554.0 - Medications Medications: Current Medications Acetaminophen (Tylenol 325mg Tab) 650 mg PO Q6H PRN PRN Reason: Pain, moderate (4-7) Last Admin: 07/13/18 11:00 Dose: 650 mg Acetaminophen (Tylenol 325mg Tab) 650 mg PO Q6 PRN PRN Reason: Fever >100.4 F Last Admin: 07/14/18 11:43 Dose: 650 mg Aspirin (Ecotrin) 81 mg PO DAILY [facility] Last Admin: 07/14/18 09:54 Dose: 81 mg Clopidogrel Bisulfate (Plavix) 75 mg PO DAILY [facility] Last Admin: 07/14/18 09:54 Dose: 75 mg Ergocalciferol (Drisdol 50,000 Intl Units Cap) 1 cap PO Q7D [facility] Last Admin: 07/11/18 14:50 Dose: 1 cap Meropenem 500 mg/ Sodium (Chloride) 100 mls @ 100 mls/hr IVPB Q12H [facility]; Protocol Last Admin: 07/14/18 13:00 Dose: 100 mls/hr Heparin Sodium/Sodium Chloride (Heparin 64403 Units/250ml 1/2 Normal Saline) 25,000 units in 250 mls @ 10.207 mls/hr IV .Q24H PRN; Protocol PRN Reason: PROTOCOL Last Admin: 07/13/18 02:00 Dose: 9 units/kg/hr, 5.103 mls/hr Dexmedetomidine HCl 200 mcg/ (Sodium Chloride) 50 mls @ 2.79 mls/hr IV TITR PRN; Protocol PRN Reason: Sedation Last Titration: 07/14/18 11:53 Dose: 0.5 mcg/kg/hr, 6.97 mls/hr Norepinephrine Bitartrate 4 mg (/ Sodium Chloride) 254 mls @ 19.05 mls/hr IV .[id number] PRN; Protocol PRN Reason: TITRATE PER MD ORDER Last Titration: 07/14/18 05:00 Dose: 3 mcg/min, 11.43 mls/hr Insulin Aspart (Novolog) 0 unit SC Q6 [facility]; Protocol Last Admin: 07/14/18 11:44 Dose: 4 units Insulin Glargine (Lantus) 10 unit SC DAILY [facility] Last Admin: 07/14/18 10:04 Dose: 10 units Lactobacillus Acidophilus (Bacid Acidophilus) 1 cap PO Q12H [facility] Last Admin: 07/14/18 08:32 Dose: 1 cap Methimazole (Tapazole) 10 mg PO TID [facility] Last Admin: 07/14/18 09:54 Dose: 10 mg Methylprednisolone (Solu-Medrol) 20 mg IVP DAILY [facility] Last Admin: 07/14/18 09:54 Dose: 20 mg Ondansetron HCl (Zofran Inj) 4 mg IVP Q6H PRN PRN Reason: Nausea/Vomiting Last Admin: 07/08/18 13:06 Dose: 4 mg Pantoprazole Sodium (Protonix Susp) 40 mg PO BID [facility] Last Admin: 07/14/18 09:54 Dose: 40 mg Propranolol HCl (Propranolol Inj) 1 mg IVP Q6H [facility] Last Admin: 07/14/18 11:02 Dose: Not Given Rosuvastatin Calcium (Crestor) 2.5 mg PO HS [facility] Last Admin: 07/13/18 21:40 Dose: 2.5 mg - Labs Labs: 07/14/18 06:31 07/14/18 06:32 PT 16.1 SECONDS (9.7-12.2) H D 07/13/18 06:30 INR 1.5 D 07/13/18 06:30 APTT 58 SECONDS (21-34) H 07/14/18 06:31
--- NOTE | 2018-07-14 14:04 | CP.PCM.CON ---
<Brayan Gonzalez - Last Filed: 07/15/18 19:26> History of Present Illness - History of Present Illness History of Present Illness: PGY1 Neurology Consult Note for Dr. Pham: Patient is a 52-year-old Female who has a past medical history significant for Diabetes Mellitus, and who was referred to us by Dr. Biggs to evaluate for anoxic brain injury. Patient presented to [facility] on 07/07/18 with complaints of productive cough and generalized malaise for the past 2-3 weeks. Patient was subsequently treated for sepsis likely secondary to UTI and NEHA and was admitted to the ICU for emergent HD. The following day the patient went into sudden respiratory distress, and she was consequently intubated. Of note, CODE BLUE was called on the patient on 07/10/18 at 14:00 for ventricular tachycardia. The patient received Amio 150 IVP, Amio drip @ 1 mg / kg/ hr, 1L NS bolus IV, Ca Gluconate IVPB 2000mg/250ml. Thus, the patient has had a complicated hospital course; please see chart for more detail. Review of Systems - Review of Systems Systems not reviewed;Unavailable: Acuity of Condition Past Patient History - Tetanus Immunizations Tetanus Immunization: Unknown - Past Medical History & Family History Past Family History: Reviewed and not pertinent - Past Social History Smoking Status: Never Smoked Alcohol: None Drugs: Denies Home Situation {Lives}: With Family - CARDIAC Hx Hypercholesterolemia: Yes - PULMONARY Hx Respiratory Disorders: No - NEUROLOGICAL Hx Neurological Disorder: No - HEENT Hx HEENT Problems: No - RENAL Hx Chronic Kidney Disease: No - ENDOCRINE/METABOLIC Hx Endocrine Disorders: Yes Hx Diabetes Mellitus Type 1: Yes - HEMATOLOGICAL/ONCOLOGICAL Hx Blood Disorders: No - INTEGUMENTARY Hx Dermatological Problems: No - MUSCULOSKELETAL/RHEUMATOLOGICAL Hx Musculoskeletal Disorders: No Hx Falls: No - GASTROINTESTINAL Hx Gastrointestinal Disorders: No - GENITOURINARY/GYNECOLOGICAL Hx Genitourinary Disorders: No - PSYCHIATRIC Hx Substance Use: No - SURGICAL HISTORY Other/Comment: removal of ovaries - ANESTHESIA Hx Anesthesia: Yes Hx Anesthesia Reactions: No Hx Malignant Hyperthermia: No Meds Allergies/Adverse Reactions: Allergies Allergy/AdvReac Type Severity Reaction Status Date / Time No Known Allergies Allergy Unverified 07/03/18 23:36 - Medications Medications: Current Medications Acetaminophen (Tylenol 325mg Tab) 650 mg PO Q6H PRN PRN Reason: Pain, moderate (4-7) Last Admin: 07/13/18 11:00 Dose: 650 mg Acetaminophen (Tylenol 325mg Tab) 650 mg PO Q6 PRN PRN Reason: Fever >100.4 F Last Admin: 07/14/18 11:43 Dose: 650 mg Aspirin (Ecotrin) 81 mg PO DAILY [facility] Last Admin: 07/14/18 09:54 Dose: 81 mg Clopidogrel Bisulfate (Plavix) 75 mg PO DAILY [facility] Last Admin: 07/14/18 09:54 Dose: 75 mg Ergocalciferol (Drisdol 50,000 Intl Units Cap) 1 cap PO Q7D [facility] Last Admin: 07/11/18 14:50 Dose: 1 cap Meropenem 500 mg/ Sodium (Chloride) 100 mls @ 100 mls/hr IVPB Q12H [facility]; Protocol Last Admin: 07/14/18 13:00 Dose: 100 mls/hr Heparin Sodium/Sodium Chloride (Heparin 07568 Units/250ml 1/2 Normal Saline) 25,000 units in 250 mls @ 10.207 mls/hr IV .Q24H PRN; Protocol PRN Reason: PROTOCOL Last Admin: 07/13/18 02:00 Dose: 9 units/kg/hr, 5.103 mls/hr Dexmedetomidine HCl 200 mcg/ (Sodium Chloride) 50 mls @ 2.79 mls/hr IV TITR PRN; Protocol PRN Reason: Sedation Last Titration: 07/14/18 11:53 Dose: 0.5 mcg/kg/hr, 6.97 mls/hr Norepinephrine Bitartrate 4 mg (/ Sodium Chloride) 254 mls @ 19.05 mls/hr IV .[id number] PRN; Protocol PRN Reason: TITRATE PER MD ORDER Last Titration: 07/14/18 05:00 Dose: 3 mcg/min, 11.43 mls/hr Insulin Aspart (Novolog) 0 unit SC Q6 [facility]; Protocol Last Admin: 07/14/18 11:44 Dose: 4 units Insulin Glargine (Lantus) 10 unit SC DAILY [facility] Last Admin: 07/14/18 10:04 Dose: 10 units Lactobacillus Acidophilus (Bacid Acidophilus) 1 cap PO Q12H [facility] Last Admin: 07/14/18 08:32 Dose: 1 cap Methimazole (Tapazole) 10 mg PO TID [facility] Last Admin: 07/14/18 09:54 Dose: 10 mg Methylprednisolone (Solu-Medrol) 20 mg IVP DAILY [facility] Last Admin: 07/14/18 09:54 Dose: 20 mg Ondansetron HCl (Zofran Inj) 4 mg IVP Q6H PRN PRN Reason: Nausea/Vomiting Last Admin: 07/08/18 13:06 Dose: 4 mg Pantoprazole Sodium (Protonix Susp) 40 mg PO BID [facility] Last Admin: 07/14/18 09:54 Dose: 40 mg Propranolol HCl (Propranolol Inj) 1 mg IVP Q6H [facility] Last Admin: 07/14/18 11:02 Dose: Not Given Rosuvastatin Calcium (Crestor) 2.5 mg PO HS [facility] Last Admin: 07/13/18 21:40 Dose: 2.5 mg Physical Exam - Constitutional Additional comments: Intubated - Head Exam Head Exam: ATRAUMATIC, NORMAL INSPECTION, NORMOCEPHALIC - Neurological Exam Additional comments: Pupils reactive to light bilaterally. Opens eyes to voice. Spontaneous movements. Positive grimace to pain. Localizes to pain. Patient is intubated and sedated. GCS 7T. - Expanded Neurological Exam Expanded DTR: Patellar Left: 2+, Patellar Right: 2+ Results - Vital Signs Recent Vital Signs: Last Vital Signs Temp 101.1 F H 07/14/18 12:43 Pulse 143 H 07/14/18 12:19 Resp 20 07/14/18 12:19 BP 129/79 07/14/18 12:19 Pulse Ox 98 07/14/18 12:19 - Labs Result Diagrams: 07/15/18 06:36 07/15/18 06:36 Labs: Laboratory Results - last 24 hr 07/10/18 07/11/18 07/13/18 08:45 05:49 15:57 WBC RBC Hgb Hct MCV MCH MCHC RDW Plt Count MPV Neut % (Auto) Lymph % (Auto) [place] % (Auto) Eos % (Auto) Baso % (Auto) Neut # (Auto) Lymph # (Auto) [place] # (Auto) Eos # (Auto) Baso # (Auto) APTT Fibrinogen Puncture Site pCO2 pO2 HCO3 ABG pH ABG Total CO2 ABG O2 Saturation ABG Base Excess ABG Hemoglobin ABG Carboxyhemoglobin POC ABG HHb (Measured) ABG Methemoglobin Kevon Test A-a O2 Difference Respiratory Index Hgb O2 Saturation Vent Mode Mechanical Rate FiO2 Tidal Volume PEEP Sodium 146 Potassium 5.2 Chloride 107 Carbon Dioxide 32 H Anion Gap 12 BUN 37 H Creatinine 1.6 H Est GFR ( Amer) 41 Est GFR (Non-Af Amer) 34 POC Glucose (mg/dL) Random Glucose 173 H Calcium 7.3 L Phosphorus 4.7 H Magnesium 2.9 H Total Bilirubin 0.7 AST 83 H ALT 153 H Alkaline Phosphatase 122 Total Protein 4.9 L Albumin 2.4 L Globulin 2.5 Albumin/Globulin Ratio 0.9 L Stool Occult Blood Glomerular Base Mem IgG <1.0 Blood Type Blood Type Confirm Antibody Screen 07/13/18 07/13/18 07/14/18 18:12 23:38 04:40 WBC RBC Hgb Hct MCV MCH MCHC RDW Plt Count MPV Neut % (Auto) Lymph % (Auto) [place] % (Auto) Eos % (Auto) Baso % (Auto) Neut # (Auto) Lymph # (Auto) [place] # (Auto) Eos # (Auto) Baso # (Auto) APTT Fibrinogen Puncture Site Rr pCO2 39 pO2 72 L HCO3 26.1 ABG pH 7.43 ABG Total CO2 27.1 ABG O2 Saturation 97.5 ABG Base Excess 1.5 ABG Hemoglobin 8.2 L ABG Carboxyhemoglobin 1.6 H POC ABG HHb (Measured) 2.4 ABG Methemoglobin 1.0 Kevon Test Pos A-a O2 Difference 307.0 Respiratory Index 4.3 Hgb O2 Saturation 95.1 Vent Mode Prvc Mechanical Rate 12 FiO2 60.0 Tidal Volume 450 PEEP 5 Sodium Potassium Chloride Carbon Dioxide Anion Gap BUN Creatinine Est GFR ( Amer) Est GFR (Non-Af Amer) POC Glucose (mg/dL) 179 H 146 H Random Glucose Calcium Phosphorus Magnesium Total Bilirubin AST ALT Alkaline Phosphatase Total Protein Albumin Globulin Albumin/Globulin Ratio Stool Occult Blood Glomerular Base Mem IgG Blood Type Blood Type Confirm Antibody Screen 07/14/18 07/14/18 07/14/18 05:17 06:31 06:31 WBC 8.8 RBC 2.46 L Hgb 7.4 L Hct 22.5 L MCV 91.4 D MCH 30.3 MCHC 33.1 RDW 15.8 H Plt Count 107 L D MPV 9.5 Neut % (Auto) 72.9 Lymph % (Auto) 15.2 L [place] % (Auto) 7.6 Eos % (Auto) 4.0 Baso % (Auto) 0.3 Neut # (Auto) 6.4 Lymph # (Auto) 1.3 [place] # (Auto) 0.7 Eos # (Auto) 0.4 Baso # (Auto) 0.0 APTT 58 H Fibrinogen Puncture Site pCO2 pO2 HCO3 ABG pH ABG Total CO2 ABG O2 Saturation ABG Base Excess ABG Hemoglobin ABG Carboxyhemoglobin POC ABG HHb (Measured) ABG Methemoglobin Kevon Test A-a O2 Difference Respiratory Index Hgb O2 Saturation Vent Mode Mechanical Rate FiO2 Tidal Volume PEEP Sodium Potassium Chloride Carbon Dioxide Anion Gap BUN Creatinine Est GFR ( Amer) Est GFR (Non-Af Amer) POC Glucose (mg/dL) 171 H Random Glucose Calcium Phosphorus Magnesium Total Bilirubin AST ALT Alkaline Phosphatase Total Protein Albumin Globulin Albumin/Globulin Ratio Stool Occult Blood Glomerular Base Mem IgG Blood Type Blood Type Confirm Antibody Screen 07/14/18 07/14/18 07/14/18 06:32 10:47 10:49 WBC RBC Hgb Hct MCV MCH MCHC RDW Plt Count MPV Neut % (Auto) Lymph % (Auto) [place] % (Auto) Eos % (Auto) Baso % (Auto) Neut # (Auto) Lymph # (Auto) [place] # (Auto) Eos # (Auto) Baso # (Auto) APTT Fibrinogen 477 H Puncture Site pCO2 pO2 HCO3 ABG pH ABG Total CO2 ABG O2 Saturation ABG Base Excess ABG Hemoglobin ABG Carboxyhemoglobin POC ABG HHb (Measured) ABG Methemoglobin Kevon Test A-a O2 Difference Respiratory Index Hgb O2 Saturation Vent Mode Mechanical Rate FiO2 Tidal Volume PEEP Sodium 147 Potassium 5.1 Chloride 114 H Carbon Dioxide 28 Anion Gap 11 BUN 38 H Creatinine 1.6 H Est GFR ( Amer) 41 Est GFR (Non-Af Amer) 34 POC Glucose (mg/dL) Random Glucose 176 H Calcium 6.7 L Phosphorus 3.5 Magnesium 2.3 Total Bilirubin 0.6 AST 59 H D ALT 109 H D Alkaline Phosphatase 98 Total Protein 4.3 L Albumin 2.0 L Globulin 2.4 Albumin/Globulin Ratio 0.8 L Stool Occult Blood Glomerular Base Mem IgG Blood Type A POSITIVE Blood Type Confirm A POSITIVE Antibody Screen Negative 07/14/18 11:31 WBC RBC Hgb Hct MCV MCH MCHC RDW Plt Count MPV Neut % (Auto) Lymph % (Auto) [place] % (Auto) Eos % (Auto) Baso % (Auto) Neut # (Auto) Lymph # (Auto) [place] # (Auto) Eos # (Auto) Baso # (Auto) APTT Fibrinogen Puncture Site pCO2 pO2 HCO3 ABG pH ABG Total CO2 ABG O2 Saturation ABG Base Excess ABG Hemoglobin ABG Carboxyhemoglobin POC ABG HHb (Measured) ABG Methemoglobin Kevon Test A-a O2 Difference Respiratory Index Hgb O2 Saturation Vent Mode Mechanical Rate FiO2 Tidal Volume PEEP Sodium Potassium Chloride Carbon Dioxide Anion Gap BUN Creatinine Est GFR ( Amer) Est GFR (Non-Af Amer) POC Glucose (mg/dL) 235 H Random Glucose Calcium Phosphorus Magnesium Total Bilirubin AST ALT Alkaline Phosphatase Total Protein Albumin Globulin Albumin/Globulin Ratio Stool Occult Blood Glomerular Base Mem IgG Blood Type Blood Type Confirm Antibody Screen Assessment & Plan - Assessment and Plan (Free Text) Assessment: Patient is a 52-year-old Female who has a past medical history significant for Diabetes Mellitus, and who was referred to us by Dr. Biggs to evaluate for anoxic brain injury. Patient was subsequently treated for sepsis likely secondary to UTI and NEHA and was admitted to the ICU for emergent HD. Patient was intubated following respiratory distress on 07/08/18. Minimally Responsive State secondary - Patient is sedated on precedex - Patient intubated - Repeat CT Head without contrast obtained, official report: No acute intracranial abnormalities. No significant findings to account for the clinical presentation. No significant interval change compared to the prior examinations. - Patient's was at bedside at time of examination; stated patient was moving her extremities spontaneously and responsive to commands in Noelle, as she primarily speaks Noelle. - Will continue to follow the status of this patient Patient seen and case discussed with Dr. Ankit Gonzalez PGY1 <James Pham - Last Filed: 07/23/18 21:54> Meds - Medications Medications: Current Medications Acetaminophen (Tylenol 325mg Tab) 650 mg PO Q6 PRN PRN Reason: Fever >100.4 F Last Admin: 07/19/18 21:04 Dose: 650 mg Albuterol/Ipratropium (Duoneb 3 Mg/0.5 Mg (3 Ml) Ud) 3 ml INH RQ6 [facility] Last Admin: 07/23/18 20:15 Dose: 3 ml Ascorbic Acid (Vitamin C 500 Mg Tab) 1,000 mg NG DAILY [facility] Aspirin (Aspirin Chewable) 81 mg GT DAILY [facility] Last Admin: 07/23/18 09:17 Dose: 81 mg Ergocalciferol (Drisdol 50,000 Intl Units Cap) 1 cap PO Q7D [facility] Last Admin: 07/18/18 12:07 Dose: 1 cap Furosemide (Lasix) 20 mg IVP BID [facility] Last Admin: 07/23/18 17:50 Dose: 20 mg Vancomycin HCl 1 gm/ Sodium (Chloride) 250 mls @ 166.7 mls/hr IVPB Q24H [facility]; Protocol Last Admin: 07/23/18 17:51 Dose: 166.7 mls/hr Dexmedetomidine HCl 200 mcg/ (Sodium Chloride) 50 mls @ 2.91 mls/hr IV TITR PRN; Protocol PRN Reason: Sedation Last Titration: 07/21/18 22:15 Dose: 0.2 mcg/kg/hr, 2.91 mls/hr Norepinephrine Bitartrate 4 mg (/ Dextrose) 254 mls @ 15.24 mls/hr IV .[id number] PRN; Protocol PRN Reason: TITRATE PER MD ORDER Last Admin: 07/21/18 13:00 Dose: 2 mcg/min, 7.62 mls/hr Meropenem 1 gm/ Sodium (Chloride) 100 mls @ 100 mls/hr IVPB Q8H [facility]; Protocol Last Admin: 07/23/18 20:19 Dose: 100 mls/hr Heparin Sodium/Sodium Chloride (Heparin 37867 Units/250ml 1/2 Normal Saline) 25,000 units in 250 mls @ 6.804 mls/hr IV .Q24H PRN; Protocol PRN Reason: PROTOCOL Last Admin: 07/23/18 02:10 Dose: 6.804 mls/hr Insulin Aspart (Novolog) 0 unit SC Q6 [facility]; Protocol Last Admin: 07/23/18 19:52 Dose: Not Given Insulin Glargine (Lantus) 20 unit SC Q12 [facility] Last Admin: 07/23/18 09:17 Dose: 20 u Lactobacillus Acidophilus (Bacid Acidophilus) 1 cap PO Q12H [facility] Last Admin: 07/23/18 21:14 Dose: 1 cap Methimazole (Tapazole) 10 mg PO TID [facility] Last Admin: 07/23/18 17:12 Dose: 10 mg Multivitamins/Vitamin C (Multi-Delyn Liquid) 5 ml PO DAILY [facility] Pantoprazole Sodium (Protonix Susp) 40 mg PO DAILY [facility] Last Admin: 07/23/18 09:16 Dose: 40 mg Propranolol HCl (Inderal) 5 mg PO TID [facility] Last Admin: 07/23/18 17:12 Dose: 5 mg Rosuvastatin Calcium (Crestor) 2.5 mg PO HS [facility] Last Admin: 07/23/18 21:14 Dose: 2.5 mg Results - Vital Signs Recent Vital Signs: Last Vital Signs Temp 97.8 F 07/23/18 20:00 Pulse 82 07/23/18 21:00 Resp 9 L 07/23/18 21:00 BP 118/60 07/23/18 21:00 Pulse Ox 97 07/23/18 21:00 - Labs Result Diagrams: 07/23/18 06:15 07/23/18 06:15 Labs: Laboratory Results - last 24 hr 07/23/18 07/23/18 07/23/18 05:50 06:15 06:15 WBC 4.6 L RBC 3.27 L Hgb 9.6 L D Hct 28.6 L MCV 87.5 D MCH 29.4 MCHC 33.6 RDW 15.5 H Plt Count 192 MPV 9.0 Neut % (Auto) 63.0 Lymph % (Auto) 25.2 [place] % (Auto) 9.1 Eos % (Auto) 2.4 Baso % (Auto) 0.3 Neut # (Auto) 2.9 Lymph # (Auto) 1.2 [place] # (Auto) 0.4 Eos # (Auto) 0.1 Baso # (Auto) 0.0 PT INR APTT Puncture Site Rradial pCO2 42 pO2 66 L HCO3 27.3 ABG pH 7.43 ABG Total CO2 29.2 H ABG O2 Saturation 96.7 ABG Base Excess 3.2 H Kevon Test Pos ABG Potassium 3.6 A-a O2 Difference 95.0 Respiratory Index 1.4 Sodium 142.0 146 Chloride 115.0 H 110 H Glucose 111 H Lactate 0.5 L Vent Mode Prvc Mechanical Rate 9 FiO2 30.0 Tidal Volume 440 PEEP 5 Potassium 3.6 Carbon Dioxide 26 Anion Gap 14 BUN 23 H Creatinine 1.1 Est GFR ( Amer) > 60 Est GFR (Non-Af Amer) 52 Random Glucose 90 Calcium 8.3 L Phosphorus 3.4 Magnesium 2.4 H Total Bilirubin 0.5 AST 28 ALT 36 Alkaline Phosphatase 229 H D Total Protein 5.6 L Albumin 2.5 L Globulin 3.1 Albumin/Globulin Ratio 0.8 L Arterial Blood Potassium 3.6 Urine Color Urine Clarity Urine pH Ur Specific [place] Urine Protein Urine Glucose (UA) Urine Ketones Urine Blood Urine Nitrate Urine Bilirubin Urine Urobilinogen Ur Leukocyte Esterase Urine WBC (Auto) Urine RBC (Auto) Ur Squamous Epith Cells Amorphous Sediment Urine Bacteria Vancomycin Trough 07/23/18 07/23/18 07/23/18 06:15 10:26 13:04 WBC RBC Hgb Hct MCV MCH MCHC RDW Plt Count MPV Neut % (Auto) Lymph % (Auto) [place] % (Auto) Eos % (Auto) Baso % (Auto) Neut # (Auto) Lymph # (Auto) [place] # (Auto) Eos # (Auto) Baso # (Auto) PT 14.3 H INR 1.3 APTT 52 H Puncture Site pCO2 pO2 HCO3 ABG pH ABG Total CO2 ABG O2 Saturation ABG Base Excess Kevon Test ABG Potassium A-a O2 Difference Respiratory Index Sodium Chloride Glucose Lactate Vent Mode Mechanical Rate FiO2 Tidal Volume PEEP Potassium Carbon Dioxide Anion Gap BUN Creatinine Est GFR ( Amer) Est GFR (Non-Af Amer) Random Glucose Calcium Phosphorus Magnesium Total Bilirubin AST ALT Alkaline Phosphatase Total Protein Albumin Globulin Albumin/Globulin Ratio Arterial Blood Potassium Urine Color Yellow Urine Clarity Clear Urine pH 8.0 Ur Specific [place] 1.013 Urine Protein 2+ H Urine Glucose (UA) 1+ Urine Ketones Negative Urine Blood Negative Urine Nitrate Negative Urine Bilirubin Negative Urine Urobilinogen Normal Ur Leukocyte Esterase Neg Urine WBC (Auto) 3 Urine RBC (Auto) < 1 Ur Squamous Epith Cells < 1 Amorphous Sediment Rare H Urine Bacteria Rare Vancomycin Trough 07/23/18 13:04 WBC RBC Hgb Hct MCV MCH MCHC RDW Plt Count MPV Neut % (Auto) Lymph % (Auto) [place] % (Auto) Eos % (Auto) Baso % (Auto) Neut # (Auto) Lymph # (Auto) [place] # (Auto) Eos # (Auto) Baso # (Auto) PT INR APTT Puncture Site pCO2 pO2 HCO3 ABG pH ABG Total CO2 ABG O2 Saturation ABG Base Excess Kevon Test ABG Potassium A-a O2 Difference Respiratory Index Sodium Chloride Glucose Lactate Vent Mode Mechanical Rate FiO2 Tidal Volume PEEP Potassium Carbon Dioxide Anion Gap BUN Creatinine Est GFR ( Amer) Est GFR (Non-Af Amer) Random Glucose Calcium Phosphorus Magnesium Total Bilirubin AST ALT Alkaline Phosphatase Total Protein Albumin Globulin Albumin/Globulin Ratio Arterial Blood Potassium Urine Color Urine Clarity Urine pH Ur Specific [place] Urine Protein Urine Glucose (UA) Urine Ketones Urine Blood Urine Nitrate Urine Bilirubin Urine Urobilinogen Ur Leukocyte Esterase Urine WBC (Auto) Urine RBC (Auto) Ur Squamous Epith Cells Amorphous Sediment Urine Bacteria Vancomycin Trough 7.7 Attending/Attestation - Attestation I have personally seen and examined this patient.: Yes I have fully participated in the care of the patient.: Yes I have reviewed all pertinent clinical information: Yes Notes (Text): 07/23/18 21:53 I agree with the assessment and plan. Likely a component of anoxic brain injury as well as toxic-metabolic encephalopathy. Continue current management of se psis and underlying cause.
--- NOTE | 2018-07-14 15:45 | CP.PCM.PN ---
Subjective - Date & Time of Evaluation Date of Evaluation: 07/14/18 Time of Evaluation: 09:00 - Subjective Subjective: patient remains intubated. moving extremities spontaneous, and breathing with vent, respond to irritative stimuli. spiking again recultured Vanco given - stat dose Objective - Vital Signs/Intake and Output Vital Signs (last 24 hours): Temp Pulse Resp BP Pulse Ox 97.5 F L 76 12 108/61 96 07/14/18 14:40 07/14/18 15:09 07/14/18 15:09 07/14/18 15:09 07/14/18 15:09 Intake and Output: 07/14/18 07/14/18 06:59 18:59 Intake Total 1929.0 1243.8 Output Total 440 320 Balance 1489.0 923.8 - Medications Medications: Current Medications Acetaminophen (Tylenol 325mg Tab) 650 mg PO Q6H PRN PRN Reason: Pain, moderate (4-7) Last Admin: 07/13/18 11:00 Dose: 650 mg Acetaminophen (Tylenol 325mg Tab) 650 mg PO Q6 PRN PRN Reason: Fever >100.4 F Last Admin: 07/14/18 11:43 Dose: 650 mg Albuterol/Ipratropium (Duoneb 3 Mg/0.5 Mg (3 Ml) Ud) 3 ml INH RQ6 [facility] Aspirin (Ecotrin) 81 mg PO DAILY [facility] Last Admin: 07/14/18 09:54 Dose: 81 mg Clopidogrel Bisulfate (Plavix) 75 mg PO DAILY [facility] Last Admin: 07/14/18 09:54 Dose: 75 mg Ergocalciferol (Drisdol 50,000 Intl Units Cap) 1 cap PO Q7D [facility] Last Admin: 07/11/18 14:50 Dose: 1 cap Meropenem 500 mg/ Sodium (Chloride) 100 mls @ 100 mls/hr IVPB Q12H [facility]; Protocol Last Admin: 07/14/18 13:00 Dose: 100 mls/hr Heparin Sodium/Sodium Chloride (Heparin 00160 Units/250ml 1/2 Normal Saline) 25,000 units in 250 mls @ 10.207 mls/hr IV .Q24H PRN; Protocol PRN Reason: PROTOCOL Last Admin: 07/13/18 02:00 Dose: 9 units/kg/hr, 5.103 mls/hr Dexmedetomidine HCl 200 mcg/ (Sodium Chloride) 50 mls @ 2.79 mls/hr IV TITR PRN; Protocol PRN Reason: Sedation Last Admin: 07/14/18 15:06 Dose: 0.3 mcg/kg/hr, 4.18 mls/hr Norepinephrine Bitartrate 4 mg (/ Sodium Chloride) 254 mls @ 19.05 mls/hr IV .[id number] PRN; Protocol PRN Reason: TITRATE PER MD ORDER Last Titration: 07/14/18 05:00 Dose: 3 mcg/min, 11.43 mls/hr Vancomycin HCl 1 gm/ Sodium (Chloride) 250 mls @ 166.7 mls/hr IVPB STAT STA; Protocol Stop: 07/14/18 17:11 Insulin Aspart (Novolog) 0 unit SC Q6 [facility]; Protocol Last Admin: 07/14/18 11:44 Dose: 4 units Insulin Glargine (Lantus) 10 unit SC DAILY [facility] Last Admin: 07/14/18 10:04 Dose: 10 units Lactobacillus Acidophilus (Bacid Acidophilus) 1 cap PO Q12H [facility] Last Admin: 07/14/18 08:32 Dose: 1 cap Methimazole (Tapazole) 10 mg PO TID [facility] Last Admin: 07/14/18 14:17 Dose: 10 mg Methylprednisolone (Solu-Medrol) 20 mg IVP DAILY [facility] Last Admin: 07/14/18 09:54 Dose: 20 mg Ondansetron HCl (Zofran Inj) 4 mg IVP Q6H PRN PRN Reason: Nausea/Vomiting Last Admin: 07/08/18 13:06 Dose: 4 mg Pantoprazole Sodium (Protonix Susp) 40 mg PO BID [facility] Last Admin: 07/14/18 09:54 Dose: 40 mg Propranolol HCl (Propranolol Inj) 1 mg IVP Q6H [facility] Last Admin: 07/14/18 11:02 Dose: Not Given Rosuvastatin Calcium (Crestor) 2.5 mg PO HS [facility] Last Admin: 07/13/18 21:40 Dose: 2.5 mg - Labs Labs: 07/14/18 06:31 07/14/18 06:32 PT 16.1 SECONDS (9.7-12.2) H D 07/13/18 06:30 INR 1.5 D 07/13/18 06:30 APTT 58 SECONDS (21-34) H 07/14/18 06:31 - Constitutional Appears: Confused, Chronically Ill - Head Exam Head Exam: NORMOCEPHALIC - Eye Exam Eye Exam: absent: Scleral icterus - ENT Exam ENT Exam: Mucous Membranes Dry - Neck Exam Neck Exam: absent: Lymphadenopathy - Respiratory Exam Respiratory Exam: Decreased Breath Sounds - Cardiovascular Exam Cardiovascular Exam: REGULAR RHYTHM - GI/Abdominal Exam GI & Abdominal Exam: Distended - Rectal Exam Rectal Exam: Deferred - Exam Exam: NORMAL INSPECTION - Extremities Exam Extremities Exam: Pedal Edema - Back Exam Back Exam: absent: CVA tenderness (L), CVA tenderness (R) - Neurological Exam Neurological Exam: Altered Assessment and Plan (1) NEHA (acute kidney injury) Status: Acute (2) Acute renal failure Status: Acute (3) Acute respiratory failure Status: Acute (4) Aspiration pneumonia Status: Acute (5) Septic shock Status: Acute (6) Urinary tract infection Status: Acute (7) Diabetes mellitus Status: Chronic - Assessment and Plan (Free Text) Assessment: CT head negative sputum + yeast remains intubated / febrile will reculture Vanco stat dose given TLC to be removed
--- NOTE | 2018-07-14 15:48 | CP.CCUPN ---
<Anabel Hinkle L - Last Filed: 07/14/18 15:52> CCU Subjective - Physician Review Subjective (Free Text): Resident Critical Care Progress Note Patient examined at bedside. Patient is intubated, does not follow commands. Had episode of afib with heart rate in 150s and so precedex was resumed. Systolic blood pressure was in the 60s-70s and levophed drip was started. Critical Care Time Spent (in minutes): 35 CCU Objective - Vital Signs / Intake & Output Vital Signs (Last 4 hours): Vital Signs Temp Pulse Resp BP Pulse Ox 07/14/18 15:09 76 12 108/61 96 07/14/18 15:00 77 12 96 07/14/18 14:54 67 13 101/57 L 98 07/14/18 14:40 97.5 F L 69 15 100/59 L 07/14/18 14:39 68 13 100/59 L 95 07/14/18 14:25 98.8 F 69 13 98/59 L 07/14/18 14:17 84 12 98/59 L 97 07/14/18 14:10 99 F 83 12 104/53 L 07/14/18 14:00 85 15 98 07/14/18 13:18 100 H 13 104/53 L 99 07/14/18 13:00 102 H 12 99 07/14/18 12:43 101.1 F H 07/14/18 12:19 143 H 20 129/79 98 07/14/18 12:00 102.1 F H 113 H 19 99 Intake and Output (Last 8hrs): Intake & Output 07/14/18 07/14/18 07/14/18 06:59 14:59 22:59 Intake Total 1664.0 1178.3 65.5 Output Total 225 280 40 Balance 1439.0 898.3 25.5 Weight 126 lb 5.198 oz Intake: IV 104 50 Intake, IV Amount 1235.0 168.3 20.5 Left Distal Port Femoral 39.8 37.9 4.2 Left Medial Port Femoral 37.6 Left Proximal Port 1137.6 90.4 11.3 Femoral Right Hand 20 40 5 Tube Feeding 325 360 45 Blood Product 0 Red Blood Cells Cpd As1 0 Lr Unit [id number] Other 600 Output: Urine 225 280 40 Urethral ([place]re) 225 280 40 Other: # Bowel Movements 1 1 - Physical Exam Head: Positive for: Atraumatic, Normocephalic Pupils: Positive for: PERRL Extroacular Muscles: Positive for: EOMI Conjunctiva: Positive for: Normal Mouth: Positive for: Moist Mucous Membranes Respiratory/Chest: Positive for: Good Air Exchange, Rhonchi Cardiovascular: Positive for: Normal S1, S2, Tachycardic Abdomen: Positive for: Normal Bowel Sounds. Negative for: Tenderness, Distention Upper Extremity: Positive for: Normal Inspection. Negative for: Cyanosis, Edema Lower Extremity: Positive for: Normal Inspection. Negative for: Edema, CALF TENDERNESS Skin: Positive for: Warm, Dry, Normal Color - Medications Active Medications: Active Medications Generic Name Dose Route Start Last Admin Trade Name Freq PRN Reason Stop Dose Admin Acetaminophen 650 mg 07/07/18 20:03 07/13/18 11:00 Tylenol 325mg Tab PO 650 mg Q6H PRN Administration Pain, moderate (4-7) Acetaminophen 650 mg 07/12/18 15:57 07/14/18 11:43 Tylenol 325mg Tab PO 650 mg Q6 PRN Administration Fever >100.4 F Albuterol/Ipratropium 3 ml 07/14/18 20:00 Duoneb 3 Mg/0.5 Mg (3 Ml) Ud INH RQ6 MANOLO Aspirin 81 mg 07/12/18 10:00 07/14/18 09:54 Ecotrin PO 81 mg DAILY MANOLO Administration Clopidogrel Bisulfate 75 mg 07/14/18 10:00 07/14/18 09:54 Plavix PO 75 mg DAILY MANOLO Administration Ergocalciferol 1 cap 07/11/18 12:45 07/11/18 14:50 Drisdol 50,000 Intl Units Cap PO 1 cap Q7D MANOLO Administration Meropenem 500 mg/ Sodium 100 mls @ 100 mls/hr 07/10/18 00:30 07/14/18 13:00 Chloride IVPB 100 mls/hr Q12H MANOLO Administration Protocol Heparin Sodium/Sodium Chloride 25,000 units in 250 mls @ 10.207 mls/hr 07/11/18 09:20 07/13/18 02:00 Heparin 83584 Units/250ml 1/2 Normal Saline IV 9 units/kg/hr .Q24H PRN 5.103 mls/hr PROTOCOL Administration Protocol 18 UNITS/KG/HR Dexmedetomidine HCl 200 mcg/ 50 mls @ 2.79 mls/hr 07/12/18 19:32 07/14/18 15:06 Sodium Chloride IV 0.3 mcg/kg/hr TITR PRN 4.18 mls/hr Sedation Administration Protocol 0.2 MCG/KG/HR Norepinephrine Bitartrate 4 mg 254 mls @ 19.05 mls/hr 07/14/18 01:02 07/14/18 05:00 / Sodium Chloride IV 3 mcg/min .[id number] PRN 11.43 mls/hr TITRATE PER MD ORDER Titration Protocol 5 MCG/MIN Vancomycin HCl 1 gm/ Sodium 250 mls @ 166.7 mls/hr 07/14/18 15:42 Chloride IVPB 07/14/18 17:11 STAT STA Protocol Insulin Aspart 0 unit 07/11/18 08:28 07/14/18 11:44 Novolog SC 4 units Q6 MANOLO Administration Protocol Insulin Glargine 10 unit 07/12/18 20:00 07/14/18 10:04 Lantus SC 10 units DAILY MANOLO Administration Lactobacillus Acidophilus 1 cap 07/08/18 20:00 07/14/18 08:32 Bacid Acidophilus PO 1 cap Q12H MANOLO Administration Methimazole 10 mg 07/11/18 10:00 07/14/18 14:17 Tapazole PO 10 mg TID MANOLO Administration Methylprednisolone 20 mg 07/14/18 10:00 07/14/18 09:54 Solu-Medrol IVP 20 mg DAILY MANOLO Administration Ondansetron HCl 4 mg 07/07/18 18:00 07/08/18 13:06 Zofran Inj IVP 4 mg Q6H PRN Administration Nausea/Vomiting Pantoprazole Sodium 40 mg 07/11/18 10:00 07/14/18 09:54 Protonix Susp PO 40 mg BID MANOLO Administration Propranolol HCl 1 mg 07/13/18 10:15 07/14/18 11:02 Propranolol Inj IVP Not Given Q6H MANOLO Rosuvastatin Calcium 2.5 mg 07/13/18 22:00 07/13/18 21:40 Crestor PO 2.5 mg HS MANOLO Administration - Patient Studies Lab Studies: Microbiology Studies 07/12/18 20:26 Gram Stain - Final Sputum Sputum Culture - Final Yeast Species 07/09/18 17:17 Blood Culture - Preliminary Blood NO GROWTH AFTER 4 DAYS 07/09/18 17:16 Blood Culture - Preliminary Blood NO GROWTH AFTER 4 DAYS Lab Studies 07/14/18 07/14/18 07/14/18 Range/Units 11:31 10:49 10:47 WBC (4.8-10.8) K/uL RBC (3.80-5.20) Mil/uL Hgb (11.0-16.0) g/dL Hct (34.0-47.0) % MCV (81.0-99.0) fL MCH (27.0-31.0) pg MCHC (33.0-37.0) g/dL RDW (11.5-14.5) % Plt Count (130-400) K/uL MPV (7.2-11.7) fL Neut % (Auto) (50.0-75.0) % Lymph % (Auto) (20.0-40.0) % [place] % (Auto) (0.0-10.0) % Eos % (Auto) (0.0-4.0) % Baso % (Auto) (0.0-2.0) % Neut # (Auto) (1.8-7.0) K/uL Lymph # (Auto) (1.0-4.3) K/uL [place] # (Auto) (0.0-0.8) K/uL Eos # (Auto) (0.0-0.7) K/uL Baso # (Auto) (0.0-0.2) K/uL APTT (21-34) SECONDS Fibrinogen 477 H (200-400) mg/dL Puncture Site pCO2 (35-45) mm/Hg pO2 (80-100) mm/Hg HCO3 (21-28) mmol/L ABG pH (7.35-7.45) ABG Total CO2 (22-28) mmol/L ABG O2 Saturation (95-98) % ABG Base Excess (-2.0-3.0) mmol/L ABG Hemoglobin (11.7-17.4) g/dL ABG Carboxyhemoglobin (0.5-1.5) % POC ABG HHb (Measured) (0.0-5.0) % ABG Methemoglobin (0.0-3.0) % Kevon Test A-a O2 Difference mm/Hg Respiratory Index Hgb O2 Saturation (95.0-98.0) % Vent Mode Mechanical Rate FiO2 % Tidal Volume PEEP Sodium (132-148) mmol/L Potassium (3.6-5.2) mmol/L Chloride (98-107) mmol/L Carbon Dioxide (22-30) mmol/L Anion Gap (10-20) BUN (7-17) mg/dL Creatinine (0.7-1.2) mg/dL Est GFR ( Amer) Est GFR (Non-Af Amer) POC Glucose (mg/dL) 235 H (65-110) mg/dL Random Glucose (65-105) mg/dL Calcium (8.6-10.4) mg/dl Phosphorus (2.5-4.5) mg/dL Magnesium (1.6-2.3) mg/dL Total Bilirubin (0.2-1.3) mg/dL AST (14-36) U/L ALT (9-52) U/L Alkaline Phosphatase (38-126) U/L Total Protein (6.3-8.3) g/dL Albumin (3.5-5.0) g/dL Globulin (2.2-3.9) gm/dL Albumin/Globulin Ratio (1.0-2.1) Stool Occult Blood (NEGATIVE) Glomerular Base Mem IgG (<1.0) AI Blood Type A POSITIVE Blood Type Confirm A POSITIVE Antibody Screen Negative 07/14/18 07/14/18 07/14/18 Range/Units 06:32 06:31 06:31 WBC 8.8 (4.8-10.8) K/uL RBC 2.46 L (3.80-5.20) Mil/uL Hgb 7.4 L (11.0-16.0) g/dL Hct 22.5 L (34.0-47.0) % MCV 91.4 D (81.0-99.0) fL MCH 30.3 (27.0-31.0) pg MCHC 33.1 (33.0-37.0) g/dL RDW 15.8 H (11.5-14.5) % Plt Count 107 L D (130-400) K/uL MPV 9.5 (7.2-11.7) fL Neut % (Auto) 72.9 (50.0-75.0) % Lymph % (Auto) 15.2 L (20.0-40.0) % [place] % (Auto) 7.6 (0.0-10.0) % Eos % (Auto) 4.0 (0.0-4.0) % Baso % (Auto) 0.3 (0.0-2.0) % Neut # (Auto) 6.4 (1.8-7.0) K/uL Lymph # (Auto) 1.3 (1.0-4.3) K/uL [place] # (Auto) 0.7 (0.0-0.8) K/uL Eos # (Auto) 0.4 (0.0-0.7) K/uL Baso # (Auto) 0.0 (0.0-0.2) K/uL APTT 58 H (21-34) SECONDS Fibrinogen (200-400) mg/dL Puncture Site pCO2 (35-45) mm/Hg pO2 (80-100) mm/Hg HCO3 (21-28) mmol/L ABG pH (7.35-7.45) ABG Total CO2 (22-28) mmol/L ABG O2 Saturation (95-98) % ABG Base Excess (-2.0-3.0) mmol/L ABG Hemoglobin (11.7-17.4) g/dL ABG Carboxyhemoglobin (0.5-1.5) % POC ABG HHb (Measured) (0.0-5.0) % ABG Methemoglobin (0.0-3.0) % Kevon Test A-a O2 Difference mm/Hg Respiratory Index Hgb O2 Saturation (95.0-98.0) % Vent Mode Mechanical Rate FiO2 % Tidal Volume PEEP Sodium 147 (132-148) mmol/L Potassium 5.1 (3.6-5.2) mmol/L Chloride 114 H (98-107) mmol/L Carbon Dioxide 28 (22-30) mmol/L Anion Gap 11 (10-20) BUN 38 H (7-17) mg/dL Creatinine 1.6 H (0.7-1.2) mg/dL Est GFR ( Amer) 41 Est GFR (Non-Af Amer) 34 POC Glucose (mg/dL) (65-110) mg/dL Random Glucose 176 H (65-105) mg/dL Calcium 6.7 L (8.6-10.4) mg/dl Phosphorus 3.5 (2.5-4.5) mg/dL Magnesium 2.3 (1.6-2.3) mg/dL Total Bilirubin 0.6 (0.2-1.3) mg/dL AST 59 H D (14-36) U/L ALT 109 H D (9-52) U/L Alkaline Phosphatase 98 (38-126) U/L Total Protein 4.3 L (6.3-8.3) g/dL Albumin 2.0 L (3.5-5.0) g/dL Globulin 2.4 (2.2-3.9) gm/dL Albumin/Globulin Ratio 0.8 L (1.0-2.1) Stool Occult Blood (NEGATIVE) Glomerular Base Mem IgG (<1.0) AI Blood Type Blood Type Confirm Antibody Screen 07/14/18 07/14/18 07/13/18 Range/Units 05:17 04:40 23:38 WBC (4.8-10.8) K/uL RBC (3.80-5.20) Mil/uL Hgb (11.0-16.0) g/dL Hct (34.0-47.0) % MCV (81.0-99.0) fL MCH (27.0-31.0) pg MCHC (33.0-37.0) g/dL RDW (11.5-14.5) % Plt Count (130-400) K/uL MPV (7.2-11.7) fL Neut % (Auto) (50.0-75.0) % Lymph % (Auto) (20.0-40.0) % [place] % (Auto) (0.0-10.0) % Eos % (Auto) (0.0-4.0) % Baso % (Auto) (0.0-2.0) % Neut # (Auto) (1.8-7.0) K/uL Lymph # (Auto) (1.0-4.3) K/uL [place] # (Auto) (0.0-0.8) K/uL Eos # (Auto) (0.0-0.7) K/uL Baso # (Auto) (0.0-0.2) K/uL APTT (21-34) SECONDS Fibrinogen (200-400) mg/dL Puncture Site Rr pCO2 39 (35-45) mm/Hg pO2 72 L (80-100) mm/Hg HCO3 26.1 (21-28) mmol/L ABG pH 7.43 (7.35-7.45) ABG Total CO2 27.1 (22-28) mmol/L ABG O2 Saturation 97.5 (95-98) % ABG Base Excess 1.5 (-2.0-3.0) mmol/L ABG Hemoglobin 8.2 L (11.7-17.4) g/dL ABG Carboxyhemoglobin 1.6 H (0.5-1.5) % POC ABG HHb (Measured) 2.4 (0.0-5.0) % ABG Methemoglobin 1.0 (0.0-3.0) % Kevon Test Pos A-a O2 Difference 307.0 mm/Hg Respiratory Index 4.3 Hgb O2 Saturation 95.1 (95.0-98.0) % Vent Mode Prvc Mechanical Rate 12 FiO2 60.0 % Tidal Volume 450 PEEP 5 Sodium (132-148) mmol/L Potassium (3.6-5.2) mmol/L Chloride (98-107) mmol/L Carbon Dioxide (22-30) mmol/L Anion Gap (10-20) BUN (7-17) mg/dL Creatinine (0.7-1.2) mg/dL Est GFR ( Amer) Est GFR (Non-Af Amer) POC Glucose (mg/dL) 171 H 146 H (65-110) mg/dL Random Glucose (65-105) mg/dL Calcium (8.6-10.4) mg/dl Phosphorus (2.5-4.5) mg/dL Magnesium (1.6-2.3) mg/dL Total Bilirubin (0.2-1.3) mg/dL AST (14-36) U/L ALT (9-52) U/L Alkaline Phosphatase (38-126) U/L Total Protein (6.3-8.3) g/dL Albumin (3.5-5.0) g/dL Globulin (2.2-3.9) gm/dL Albumin/Globulin Ratio (1.0-2.1) Stool Occult Blood (NEGATIVE) Glomerular Base Mem IgG (<1.0) AI Blood Type Blood Type Confirm Antibody Screen 07/13/18 07/13/18 07/11/18 Range/Units 18:12 15:57 05:49 WBC (4.8-10.8) K/uL RBC (3.80-5.20) Mil/uL Hgb (11.0-16.0) g/dL Hct (34.0-47.0) % MCV (81.0-99.0) fL MCH (27.0-31.0) pg MCHC (33.0-37.0) g/dL RDW (11.5-14.5) % Plt Count (130-400) K/uL MPV (7.2-11.7) fL Neut % (Auto) (50.0-75.0) % Lymph % (Auto) (20.0-40.0) % [place] % (Auto) (0.0-10.0) % Eos % (Auto) (0.0-4.0) % Baso % (Auto) (0.0-2.0) % Neut # (Auto) (1.8-7.0) K/uL Lymph # (Auto) (1.0-4.3) K/uL [place] # (Auto) (0.0-0.8) K/uL Eos # (Auto) (0.0-0.7) K/uL Baso # (Auto) (0.0-0.2) K/uL APTT (21-34) SECONDS Fibrinogen (200-400) mg/dL Puncture Site pCO2 (35-45) mm/Hg pO2 (80-100) mm/Hg HCO3 (21-28) mmol/L ABG pH (7.35-7.45) ABG Total CO2 (22-28) mmol/L ABG O2 Saturation (95-98) % ABG Base Excess (-2.0-3.0) mmol/L ABG Hemoglobin (11.7-17.4) g/dL ABG Carboxyhemoglobin (0.5-1.5) % POC ABG HHb (Measured) (0.0-5.0) % ABG Methemoglobin (0.0-3.0) % Kevon Test A-a O2 Difference mm/Hg Respiratory Index Hgb O2 Saturation (95.0-98.0) % Vent Mode Mechanical Rate FiO2 % Tidal Volume PEEP Sodium 146 (132-148) mmol/L Potassium 5.2 (3.6-5.2) mmol/L Chloride 107 (98-107) mmol/L Carbon Dioxide 32 H (22-30) mmol/L Anion Gap 12 (10-20) BUN 37 H (7-17) mg/dL Creatinine 1.6 H (0.7-1.2) mg/dL Est GFR ( Amer) 41 Est GFR (Non-Af Amer) 34 POC Glucose (mg/dL) 179 H (65-110) mg/dL Random Glucose 173 H (65-105) mg/dL Calcium 7.3 L (8.6-10.4) mg/dl Phosphorus 4.7 H (2.5-4.5) mg/dL Magnesium 2.9 H (1.6-2.3) mg/dL Total Bilirubin 0.7 (0.2-1.3) mg/dL AST 83 H (14-36) U/L ALT 153 H (9-52) U/L Alkaline Phosphatase 122 (38-126) U/L Total Protein 4.9 L (6.3-8.3) g/dL Albumin 2.4 L (3.5-5.0) g/dL Globulin 2.5 (2.2-3.9) gm/dL Albumin/Globulin Ratio 0.9 L (1.0-2.1) Stool Occult Blood (NEGATIVE) Glomerular Base Mem IgG <1.0 (<1.0) AI Blood Type Blood Type Confirm Antibody Screen 07/10/18 Range/Units 08:45 WBC (4.8-10.8) K/uL RBC (3.80-5.20) Mil/uL Hgb (11.0-16.0) g/dL Hct (34.0-47.0) % MCV (81.0-99.0) fL MCH (27.0-31.0) pg MCHC (33.0-37.0) g/dL RDW (11.5-14.5) % Plt Count (130-400) K/uL MPV (7.2-11.7) fL Neut % (Auto) (50.0-75.0) % Lymph % (Auto) (20.0-40.0) % [place] % (Auto) (0.0-10.0) % Eos % (Auto) (0.0-4.0) % Baso % (Auto) (0.0-2.0) % Neut # (Auto) (1.8-7.0) K/uL Lymph # (Auto) (1.0-4.3) K/uL [place] # (Auto) (0.0-0.8) K/uL Eos # (Auto) (0.0-0.7) K/uL Baso # (Auto) (0.0-0.2) K/uL APTT (21-34) SECONDS Fibrinogen (200-400) mg/dL Puncture Site pCO2 (35-45) mm/Hg pO2 (80-100) mm/Hg HCO3 (21-28) mmol/L ABG pH (7.35-7.45) ABG Total CO2 (22-28) mmol/L ABG O2 Saturation (95-98) % ABG Base Excess (-2.0-3.0) mmol/L ABG Hemoglobin (11.7-17.4) g/dL ABG Carboxyhemoglobin (0.5-1.5) % POC ABG HHb (Measured) (0.0-5.0) % ABG Methemoglobin (0.0-3.0) % Kevon Test A-a O2 Difference mm/Hg Respiratory Index Hgb O2 Saturation (95.0-98.0) % Vent Mode Mechanical Rate FiO2 % Tidal Volume PEEP Sodium (132-148) mmol/L Potassium (3.6-5.2) mmol/L Chloride (98-107) mmol/L Carbon Dioxide (22-30) mmol/L Anion Gap (10-20) BUN (7-17) mg/dL Creatinine (0.7-1.2) mg/dL Est GFR ( Amer) Est GFR (Non-Af Amer) POC Glucose (mg/dL) (65-110) mg/dL Random Glucose (65-105) mg/dL Calcium (8.6-10.4) mg/dl Phosphorus (2.5-4.5) mg/dL Magnesium (1.6-2.3) mg/dL Total Bilirubin (0.2-1.3) mg/dL AST (14-36) U/L ALT (9-52) U/L Alkaline Phosphatase (38-126) U/L Total Protein (6.3-8.3) g/dL Albumin (3.5-5.0) g/dL Globulin (2.2-3.9) gm/dL Albumin/Globulin Ratio (1.0-2.1) Stool Occult Blood (NEGATIVE) Glomerular Base Mem IgG (<1.0) AI Blood Type Blood Type Confirm Antibody Screen Laboratory Results - last 24 hr 07/10/18 07/11/18 07/13/18 08:45 05:49 15:57 WBC RBC Hgb Hct MCV MCH MCHC RDW Plt Count MPV Neut % (Auto) Lymph % (Auto) [place] % (Auto) Eos % (Auto) Baso % (Auto) Neut # (Auto) Lymph # (Auto) [place] # (Auto) Eos # (Auto) Baso # (Auto) APTT Fibrinogen Puncture Site pCO2 pO2 HCO3 ABG pH ABG Total CO2 ABG O2 Saturation ABG Base Excess ABG Hemoglobin ABG Carboxyhemoglobin POC ABG HHb (Measured) ABG Methemoglobin Kevon Test A-a O2 Difference Respiratory Index Hgb O2 Saturation Vent Mode Mechanical Rate FiO2 Tidal Volume PEEP Sodium 146 Potassium 5.2 Chloride 107 Carbon Dioxide 32 H Anion Gap 12 BUN 37 H Creatinine 1.6 H Est GFR ( Amer) 41 Est GFR (Non-Af Amer) 34 POC Glucose (mg/dL) Random Glucose 173 H Calcium 7.3 L Phosphorus 4.7 H Magnesium 2.9 H Total Bilirubin 0.7 AST 83 H ALT 153 H Alkaline Phosphatase 122 Total Protein 4.9 L Albumin 2.4 L Globulin 2.5 Albumin/Globulin Ratio 0.9 L Stool Occult Blood Glomerular Base Mem IgG <1.0 Blood Type Blood Type Confirm Antibody Screen 07/13/18 07/13/18 07/14/18 18:12 23:38 04:40 WBC RBC Hgb Hct MCV MCH MCHC RDW Plt Count MPV Neut % (Auto) Lymph % (Auto) [place] % (Auto) Eos % (Auto) Baso % (Auto) Neut # (Auto) Lymph # (Auto) [place] # (Auto) Eos # (Auto) Baso # (Auto) APTT Fibrinogen Puncture Site Rr pCO2 39 pO2 72 L HCO3 26.1 ABG pH 7.43 ABG Total CO2 27.1 ABG O2 Saturation 97.5 ABG Base Excess 1.5 ABG Hemoglobin 8.2 L ABG Carboxyhemoglobin 1.6 H POC ABG HHb (Measured) 2.4 ABG Methemoglobin 1.0 Kevon Test Pos A-a O2 Difference 307.0 Respiratory Index 4.3 Hgb O2 Saturation 95.1 Vent Mode Prvc Mechanical Rate 12 FiO2 60.0 Tidal Volume 450 PEEP 5 Sodium Potassium Chloride Carbon Dioxide Anion Gap BUN Creatinine Est GFR ( Amer) Est GFR (Non-Af Amer) POC Glucose (mg/dL) 179 H 146 H Random Glucose Calcium Phosphorus Magnesium Total Bilirubin AST ALT Alkaline Phosphatase Total Protein Albumin Globulin Albumin/Globulin Ratio Stool Occult Blood Glomerular Base Mem IgG Blood Type Blood Type Confirm Antibody Screen 07/14/18 07/14/18 07/14/18 05:17 06:31 06:31 WBC 8.8 RBC 2.46 L Hgb 7.4 L Hct 22.5 L MCV 91.4 D MCH 30.3 MCHC 33.1 RDW 15.8 H Plt Count 107 L D MPV 9.5 Neut % (Auto) 72.9 Lymph % (Auto) 15.2 L [place] % (Auto) 7.6 Eos % (Auto) 4.0 Baso % (Auto) 0.3 Neut # (Auto) 6.4 Lymph # (Auto) 1.3 [place] # (Auto) 0.7 Eos # (Auto) 0.4 Baso # (Auto) 0.0 APTT 58 H Fibrinogen Puncture Site pCO2 pO2 HCO3 ABG pH ABG Total CO2 ABG O2 Saturation ABG Base Excess ABG Hemoglobin ABG Carboxyhemoglobin POC ABG HHb (Measured) ABG Methemoglobin Kevon Test A-a O2 Difference Respiratory Index Hgb O2 Saturation Vent Mode Mechanical Rate FiO2 Tidal Volume PEEP Sodium Potassium Chloride Carbon Dioxide Anion Gap BUN Creatinine Est GFR ( Amer) Est GFR (Non-Af Amer) POC Glucose (mg/dL) 171 H Random Glucose Calcium Phosphorus Magnesium Total Bilirubin AST ALT Alkaline Phosphatase Total Protein Albumin Globulin Albumin/Globulin Ratio Stool Occult Blood Glomerular Base Mem IgG Blood Type Blood Type Confirm Antibody Screen 07/14/18 07/14/18 07/14/18 06:32 10:47 10:49 WBC RBC Hgb Hct MCV MCH MCHC RDW Plt Count MPV Neut % (Auto) Lymph % (Auto) [place] % (Auto) Eos % (Auto) Baso % (Auto) Neut # (Auto) Lymph # (Auto) [place] # (Auto) Eos # (Auto) Baso # (Auto) APTT Fibrinogen 477 H Puncture Site pCO2 pO2 HCO3 ABG pH ABG Total CO2 ABG O2 Saturation ABG Base Excess ABG Hemoglobin ABG Carboxyhemoglobin POC ABG HHb (Measured) ABG Methemoglobin Kevon Test A-a O2 Difference Respiratory Index Hgb O2 Saturation Vent Mode Mechanical Rate FiO2 Tidal Volume PEEP Sodium 147 Potassium 5.1 Chloride 114 H Carbon Dioxide 28 Anion Gap 11 BUN 38 H Creatinine 1.6 H Est GFR ( Amer) 41 Est GFR (Non-Af Amer) 34 POC Glucose (mg/dL) Random Glucose 176 H Calcium 6.7 L Phosphorus 3.5 Magnesium 2.3 Total Bilirubin 0.6 AST 59 H D ALT 109 H D Alkaline Phosphatase 98 Total Protein 4.3 L Albumin 2.0 L Globulin 2.4 Albumin/Globulin Ratio 0.8 L Stool Occult Blood Glomerular Base Mem IgG Blood Type A POSITIVE Blood Type Confirm A POSITIVE Antibody Screen Negative 07/14/18 11:31 WBC RBC Hgb Hct MCV MCH MCHC RDW Plt Count MPV Neut % (Auto) Lymph % (Auto) [place] % (Auto) Eos % (Auto) Baso % (Auto) Neut # (Auto) Lymph # (Auto) [place] # (Auto) Eos # (Auto) Baso # (Auto) APTT Fibrinogen Puncture Site pCO2 pO2 HCO3 ABG pH ABG Total CO2 ABG O2 Saturation ABG Base Excess ABG Hemoglobin ABG Carboxyhemoglobin POC ABG HHb (Measured) ABG Methemoglobin Kevon Test A-a O2 Difference Respiratory Index Hgb O2 Saturation Vent Mode Mechanical Rate FiO2 Tidal Volume PEEP Sodium Potassium Chloride Carbon Dioxide Anion Gap BUN Creatinine Est GFR ( Amer) Est GFR (Non-Af Amer) POC Glucose (mg/dL) 235 H Random Glucose Calcium Phosphorus Magnesium Total Bilirubin AST ALT Alkaline Phosphatase Total Protein Albumin Globulin Albumin/Globulin Ratio Stool Occult Blood Glomerular Base Mem IgG Blood Type Blood Type Confirm Antibody Screen Fingerstick Blood Sugar Results: 235 Review of Systems - Review of Systems All systems: reviewed and no additional remarkable complaints except (as stated in HPI) Assessment/Plan - Assessment and Plan (Free Text) Assessment: 52 y/o female with past medical history of T2DM presents to [facility] with c/p cough and malaise for the past 2-3 weeks. coughing associated with vomiting. (+) vomiting food contents. Seen in ED three days earlier dx with UTI & started on Bactrim. Admitted for respiratory failure and ARF. Intubated (07/08). Neuro: - anoxic brain injury - sedated on precedex - goals of care to be discussed Pulm: - hypoxic respiratory failure secondary to pulmonary congestion, renal failure - Keep saturation>92 - Duonebs 2 ml INH RQ4 - daily cpap trial CV: - cardiac arrest from unknown etiology - pressors: levophed - Cardiology consulted. Appreciate recs. 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 Neville Hinkle PGY-1 - Date & Time Date: 07/14/18 Time: 08:00 <Errol Lozada - Last Filed: 07/14/18 18:11> CCU Subjective - Physician Review Critical Care Time Spent (in minutes): 45 CCU Objective - Vital Signs / Intake & Output Vital Signs (Last 4 hours): Vital Signs Temp Pulse Resp BP Pulse Ox 07/14/18 17:29 97.4 F L 70 14 104/59 L 07/14/18 16:39 66 12 109/63 98 07/14/18 16:24 67 12 111/60 100 10/12/18 16:09 71 15 118/66 88 L 07/14/18 16:00 66 12 79 L 07/14/18 15:54 67 12 114/65 96 07/14/18 15:39 70 17 104/60 95 07/14/18 15:24 83 13 105/61 90 L 07/14/18 15:10 97 F L 63 12 108/61 07/14/18 15:09 76 12 108/61 96 07/14/18 15:00 77 12 96 07/14/18 14:54 67 13 101/57 L 98 07/14/18 14:40 97.5 F L 69 15 100/59 L 07/14/18 14:39 68 13 100/59 L 95 07/14/18 14:25 98.8 F 69 13 98/59 L 07/14/18 14:17 84 12 98/59 L 97 07/14/18 14:10 99 F 83 12 104/53 L Intake and Output (Last 8hrs): Intake & Output 07/14/18 07/14/18 07/14/18 06:59 14:59 22:59 Intake Total 1664.0 1178.3 506.0 Output Total 225 280 80 Balance 1439.0 898.3 426.0 Weight 126 lb 5.198 oz Intake: IV 104 50 Intake, IV Amount 1235.0 168.3 41.0 Left Distal Port Femoral 39.8 37.9 8.4 Left Medial Port Femoral 37.6 Left Proximal Port 1137.6 90.4 22.6 Femoral Right Hand 20 40 10 Tube Feeding 325 360 90 Blood Product 0 325 Red Blood Cells Cpd As1 0 325 Lr Unit [id number] Other 600 50 Red Blood Cells Cpd As1 50 Lr Unit [id number] Output: Urine 225 280 80 Urethral (Mcintyre) 225 280 80 Other: # Bowel Movements 1 1 - Medications Active Medications: Active Medications Generic Name Dose Route Start Last Admin Trade Name Freq PRN Reason Stop Dose Admin Acetaminophen 650 mg 07/07/18 20:03 07/13/18 11:00 Tylenol 325mg Tab PO 650 mg Q6H PRN Administration Pain, moderate (4-7) Acetaminophen 650 mg 07/12/18 15:57 07/14/18 11:43 Tylenol 325mg Tab PO 650 mg Q6 PRN Administration Fever >100.4 F Albuterol/Ipratropium 3 ml 07/14/18 20:00 Duoneb 3 Mg/0.5 Mg (3 Ml) Ud INH RQ6 MANOLO Aspirin 81 mg 07/12/18 10:00 07/14/18 09:54 Ecotrin PO 81 mg DAILY MANOLO Administration Clopidogrel Bisulfate 75 mg 07/14/18 10:00 07/14/18 09:54 Plavix PO 75 mg DAILY MANOLO Administration Ergocalciferol 1 cap 07/11/18 12:45 07/11/18 14:50 Drisdol 50,000 Intl Units Cap PO 1 cap Q7D MANOLO Administration Heparin Sodium/Sodium Chloride 25,000 units in 250 mls @ 10.207 mls/hr 07/11/18 09:20 07/13/18 02:00 Heparin 92522 Units/250ml 1/2 Normal Saline IV 9 units/kg/hr .Q24H PRN 5.103 mls/hr PROTOCOL Administration Protocol 18 UNITS/KG/HR Dexmedetomidine HCl 200 mcg/ 50 mls @ 2.79 mls/hr 07/12/18 19:32 07/14/18 15:06 Sodium Chloride IV 0.3 mcg/kg/hr TITR PRN 4.18 mls/hr Sedation Administration Protocol 0.2 MCG/KG/HR Norepinephrine Bitartrate 4 mg 254 mls @ 19.05 mls/hr 07/14/18 01:02 07/14/18 05:00 / Sodium Chloride IV 3 mcg/min .[id number] PRN 11.43 mls/hr TITRATE PER MD ORDER Titration Protocol 5 MCG/MIN Vancomycin HCl 1 gm/ Sodium 250 mls @ 166.7 mls/hr 07/14/18 18:00 Chloride IVPB Q24H MANOLO Protocol Ceftriaxone Sodium 2 gm/ 100 mls @ 100 mls/hr 07/14/18 17:00 07/14/18 17:21 Sodium Chloride IVPB 100 mls/hr Q12H MANOLO Administration Protocol Insulin Aspart 0 unit 07/11/18 08:28 07/14/18 17:37 Novolog SC 10 units Q6 MANOLO Administration Protocol Insulin Glargine 10 unit 07/12/18 20:00 07/14/18 10:04 Lantus SC 10 units DAILY MANOLO Administration Lactobacillus Acidophilus 1 cap 07/08/18 20:00 07/14/18 08:32 Bacid Acidophilus PO 1 cap Q12H MANOLO Administration Methimazole 10 mg 07/11/18 10:00 07/14/18 17:33 Tapazole PO 10 mg TID MANOLO Administration Methylprednisolone 20 mg 07/14/18 10:00 07/14/18 09:54 Solu-Medrol IVP 20 mg DAILY MANOLO Administration Ondansetron HCl 4 mg 07/07/18 18:00 07/08/18 13:06 Zofran Inj IVP 4 mg Q6H PRN Administration Nausea/Vomiting Pantoprazole Sodium 40 mg 07/11/18 10:00 07/14/18 17:33 Protonix Susp PO 40 mg BID MANOLO Administration Propranolol HCl 1 mg 07/13/18 10:15 07/14/18 16:28 Propranolol Inj IVP Not Given Q6H MANOLO Rosuvastatin Calcium 2.5 mg 07/13/18 22:00 07/13/18 21:40 Crestor PO 2.5 mg HS MANOLO Administration - Patient Studies Lab Studies: Microbiology Studies 07/14/18 13:01 Gram Stain - Final Trachasp 07/09/18 17:17 Blood Culture - Final Blood NO GROWTH AFTER 5 DAYS Gram Stain - Final TEST NOT PERFORMED 07/09/18 17:16 Blood Culture - Final Blood NO GROWTH AFTER 5 DAYS Gram Stain - Final TEST NOT PERFORMED 07/12/18 20:26 Gram Stain - Final Sputum Sputum Culture - Final Yeast Species Lab Studies 07/14/18 07/14/18 07/14/18 Range/Units 17:34 11:31 10:49 WBC (4.8-10.8) K/uL RBC (3.80-5.20) Mil/uL Hgb (11.0-16.0) g/dL Hct (34.0-47.0) % MCV (81.0-99.0) fL MCH (27.0-31.0) pg MCHC (33.0-37.0) g/dL RDW (11.5-14.5) % Plt Count (130-400) K/uL MPV (7.2-11.7) fL Neut % (Auto) (50.0-75.0) % Lymph % (Auto) (20.0-40.0) % [place] % (Auto) (0.0-10.0) % Eos % (Auto) (0.0-4.0) % Baso % (Auto) (0.0-2.0) % Neut # (Auto) (1.8-7.0) K/uL Lymph # (Auto) (1.0-4.3) K/uL [place] # (Auto) (0.0-0.8) K/uL Eos # (Auto) (0.0-0.7) K/uL Baso # (Auto) (0.0-0.2) K/uL APTT (21-34) SECONDS Fibrinogen (200-400) mg/dL Puncture Site pCO2 (35-45) mm/Hg pO2 (80-100) mm/Hg HCO3 (21-28) mmol/L ABG pH (7.35-7.45) ABG Total CO2 (22-28) mmol/L ABG O2 Saturation (95-98) % ABG Base Excess (-2.0-3.0) mmol/L ABG Hemoglobin (11.7-17.4) g/dL ABG Carboxyhemoglobin (0.5-1.5) % POC ABG HHb (Measured) (0.0-5.0) % ABG Methemoglobin (0.0-3.0) % Kevon Test A-a O2 Difference mm/Hg Respiratory Index Hgb O2 Saturation (95.0-98.0) % Vent Mode Mechanical Rate FiO2 % Tidal Volume PEEP Sodium (132-148) mmol/L Potassium (3.6-5.2) mmol/L Chloride (98-107) mmol/L Carbon Dioxide (22-30) mmol/L Anion Gap (10-20) BUN (7-17) mg/dL Creatinine (0.7-1.2) mg/dL Est GFR ( Amer) Est GFR (Non-Af Amer) POC Glucose (mg/dL) 389 H 235 H (65-110) mg/dL Random Glucose (65-105) mg/dL Calcium (8.6-10.4) mg/dl Phosphorus (2.5-4.5) mg/dL Magnesium (1.6-2.3) mg/dL Total Bilirubin (0.2-1.3) mg/dL AST (14-36) U/L ALT (9-52) U/L Alkaline Phosphatase (38-126) U/L Total Protein (6.3-8.3) g/dL Albumin (3.5-5.0) g/dL Globulin (2.2-3.9) gm/dL Albumin/Globulin Ratio (1.0-2.1) Thyroid Stim Immunoglob (<140) % baseline Stool Occult Blood (NEGATIVE) Glomerular Base Mem IgG (<1.0) AI Blood Type A POSITIVE Blood Type Confirm A POSITIVE Antibody Screen Negative 07/14/18 07/14/18 07/14/18 Range/Units 10:47 06:32 06:31 WBC (4.8-10.8) K/uL RBC (3.80-5.20) Mil/uL Hgb (11.0-16.0) g/dL Hct (34.0-47.0) % MCV (81.0-99.0) fL MCH (27.0-31.0) pg MCHC (33.0-37.0) g/dL RDW (11.5-14.5) % Plt Count (130-400) K/uL MPV (7.2-11.7) fL Neut % (Auto) (50.0-75.0) % Lymph % (Auto) (20.0-40.0) % [place] % (Auto) (0.0-10.0) % Eos % (Auto) (0.0-4.0) % Baso % (Auto) (0.0-2.0) % Neut # (Auto) (1.8-7.0) K/uL Lymph # (Auto) (1.0-4.3) K/uL [place] # (Auto) (0.0-0.8) K/uL Eos # (Auto) (0.0-0.7) K/uL Baso # (Auto) (0.0-0.2) K/uL APTT 58 H (21-34) SECONDS Fibrinogen 477 H (200-400) mg/dL Puncture Site pCO2 (35-45) mm/Hg pO2 (80-100) mm/Hg HCO3 (21-28) mmol/L ABG pH (7.35-7.45) ABG Total CO2 (22-28) mmol/L ABG O2 Saturation (95-98) % ABG Base Excess (-2.0-3.0) mmol/L ABG Hemoglobin (11.7-17.4) g/dL ABG Carboxyhemoglobin (0.5-1.5) % POC ABG HHb (Measured) (0.0-5.0) % ABG Methemoglobin (0.0-3.0) % Kevon Test A-a O2 Difference mm/Hg Respiratory Index Hgb O2 Saturation (95.0-98.0) % Vent Mode Mechanical Rate FiO2 % Tidal Volume PEEP Sodium 147 (132-148) mmol/L Potassium 5.1 (3.6-5.2) mmol/L Chloride 114 H (98-107) mmol/L Carbon Dioxide 28 (22-30) mmol/L Anion Gap 11 (10-20) BUN 38 H (7-17) mg/dL Creatinine 1.6 H (0.7-1.2) mg/dL Est GFR ( Amer) 41 Est GFR (Non-Af Amer) 34 POC Glucose (mg/dL) (65-110) mg/dL Random Glucose 176 H (65-105) mg/dL Calcium 6.7 L (8.6-10.4) mg/dl Phosphorus 3.5 (2.5-4.5) mg/dL Magnesium 2.3 (1.6-2.3) mg/dL Total Bilirubin 0.6 (0.2-1.3) mg/dL AST 59 H D (14-36) U/L ALT 109 H D (9-52) U/L Alkaline Phosphatase 98 (38-126) U/L Total Protein 4.3 L (6.3-8.3) g/dL Albumin 2.0 L (3.5-5.0) g/dL Globulin 2.4 (2.2-3.9) gm/dL Albumin/Globulin Ratio 0.8 L (1.0-2.1) Thyroid Stim Immunoglob (<140) % baseline Stool Occult Blood (NEGATIVE) Glomerular Base Mem IgG (<1.0) AI Blood Type Blood Type Confirm Antibody Screen 07/14/18 07/14/18 07/14/18 Range/Units 06:31 05:17 04:40 WBC 8.8 (4.8-10.8) K/uL RBC 2.46 L (3.80-5.20) Mil/uL Hgb 7.4 L (11.0-16.0) g/dL Hct 22.5 L (34.0-47.0) % MCV 91.4 D (81.0-99.0) fL MCH 30.3 (27.0-31.0) pg MCHC 33.1 (33.0-37.0) g/dL RDW 15.8 H (11.5-14.5) % Plt Count 107 L D (130-400) K/uL MPV 9.5 (7.2-11.7) fL Neut % (Auto) 72.9 (50.0-75.0) % Lymph % (Auto) 15.2 L (20.0-40.0) % [place] % (Auto) 7.6 (0.0-10.0) % Eos % (Auto) 4.0 (0.0-4.0) % Baso % (Auto) 0.3 (0.0-2.0) % Neut # (Auto) 6.4 (1.8-7.0) K/uL Lymph # (Auto) 1.3 (1.0-4.3) K/uL [place] # (Auto) 0.7 (0.0-0.8) K/uL Eos # (Auto) 0.4 (0.0-0.7) K/uL Baso # (Auto) 0.0 (0.0-0.2) K/uL APTT (21-34) SECONDS Fibrinogen (200-400) mg/dL Puncture Site Rr pCO2 39 (35-45) mm/Hg pO2 72 L (80-100) mm/Hg HCO3 26.1 (21-28) mmol/L ABG pH 7.43 (7.35-7.45) ABG Total CO2 27.1 (22-28) mmol/L ABG O2 Saturation 97.5 (95-98) % ABG Base Excess 1.5 (-2.0-3.0) mmol/L ABG Hemoglobin 8.2 L (11.7-17.4) g/dL ABG Carboxyhemoglobin 1.6 H (0.5-1.5) % POC ABG HHb (Measured) 2.4 (0.0-5.0) % ABG Methemoglobin 1.0 (0.0-3.0) % Kevon Test Pos A-a O2 Difference 307.0 mm/Hg Respiratory Index 4.3 Hgb O2 Saturation 95.1 (95.0-98.0) % Vent Mode Prvc Mechanical Rate 12 FiO2 60.0 % Tidal Volume 450 PEEP 5 Sodium (132-148) mmol/L Potassium (3.6-5.2) mmol/L Chloride (98-107) mmol/L Carbon Dioxide (22-30) mmol/L Anion Gap (10-20) BUN (7-17) mg/dL Creatinine (0.7-1.2) mg/dL Est GFR ( Amer) Est GFR (Non-Af Amer) POC Glucose (mg/dL) 171 H (65-110) mg/dL Random Glucose (65-105) mg/dL Calcium (8.6-10.4) mg/dl Phosphorus (2.5-4.5) mg/dL Magnesium (1.6-2.3) mg/dL Total Bilirubin (0.2-1.3) mg/dL AST (14-36) U/L ALT (9-52) U/L Alkaline Phosphatase (38-126) U/L Total Protein (6.3-8.3) g/dL Albumin (3.5-5.0) g/dL Globulin (2.2-3.9) gm/dL Albumin/Globulin Ratio (1.0-2.1) Thyroid Stim Immunoglob (<140) % baseline Stool Occult Blood (NEGATIVE) Glomerular Base Mem IgG (<1.0) AI Blood Type Blood Type Confirm Antibody Screen 07/13/18 07/13/18 07/11/18 Range/Units 23:38 18:12 05:49 WBC (4.8-10.8) K/uL RBC (3.80-5.20) Mil/uL Hgb (11.0-16.0) g/dL Hct (34.0-47.0) % MCV (81.0-99.0) fL MCH (27.0-31.0) pg MCHC (33.0-37.0) g/dL RDW (11.5-14.5) % Plt Count (130-400) K/uL MPV (7.2-11.7) fL Neut % (Auto) (50.0-75.0) % Lymph % (Auto) (20.0-40.0) % [place] % (Auto) (0.0-10.0) % Eos % (Auto) (0.0-4.0) % Baso % (Auto) (0.0-2.0) % Neut # (Auto) (1.8-7.0) K/uL Lymph # (Auto) (1.0-4.3) K/uL [place] # (Auto) (0.0-0.8) K/uL Eos # (Auto) (0.0-0.7) K/uL Baso # (Auto) (0.0-0.2) K/uL APTT (21-34) SECONDS Fibrinogen (200-400) mg/dL Puncture Site pCO2 (35-45) mm/Hg pO2 (80-100) mm/Hg HCO3 (21-28) mmol/L ABG pH (7.35-7.45) ABG Total CO2 (22-28) mmol/L ABG O2 Saturation (95-98) % ABG Base Excess (-2.0-3.0) mmol/L ABG Hemoglobin (11.7-17.4) g/dL ABG Carboxyhemoglobin (0.5-1.5) % POC ABG HHb (Measured) (0.0-5.0) % ABG Methemoglobin (0.0-3.0) % Kevon Test A-a O2 Difference mm/Hg Respiratory Index Hgb O2 Saturation (95.0-98.0) % Vent Mode Mechanical Rate FiO2 % Tidal Volume PEEP Sodium (132-148) mmol/L Potassium (3.6-5.2) mmol/L Chloride (98-107) mmol/L Carbon Dioxide (22-30) mmol/L Anion Gap (10-20) BUN (7-17) mg/dL Creatinine (0.7-1.2) mg/dL Est GFR ( Amer) Est GFR (Non-Af Amer) POC Glucose (mg/dL) 146 H 179 H (65-110) mg/dL Random Glucose (65-105) mg/dL Calcium (8.6-10.4) mg/dl Phosphorus (2.5-4.5) mg/dL Magnesium (1.6-2.3) mg/dL Total Bilirubin (0.2-1.3) mg/dL AST (14-36) U/L ALT (9-52) U/L Alkaline Phosphatase (38-126) U/L Total Protein (6.3-8.3) g/dL Albumin (3.5-5.0) g/dL Globulin (2.2-3.9) gm/dL Albumin/Globulin Ratio (1.0-2.1) Thyroid Stim Immunoglob 92 (<140) % baseline Stool Occult Blood (NEGATIVE) Glomerular Base Mem IgG (<1.0) AI Blood Type Blood Type Confirm Antibody Screen 07/11/18 07/10/18 Range/Units 05:49 08:45 WBC (4.8-10.8) K/uL RBC (3.80-5.20) Mil/uL Hgb (11.0-16.0) g/dL Hct (34.0-47.0) % MCV (81.0-99.0) fL MCH (27.0-31.0) pg MCHC (33.0-37.0) g/dL RDW (11.5-14.5) % Plt Count (130-400) K/uL MPV (7.2-11.7) fL Neut % (Auto) (50.0-75.0) % Lymph % (Auto) (20.0-40.0) % [place] % (Auto) (0.0-10.0) % Eos % (Auto) (0.0-4.0) % Baso % (Auto) (0.0-2.0) % Neut # (Auto) (1.8-7.0) K/uL Lymph # (Auto) (1.0-4.3) K/uL [place] # (Auto) (0.0-0.8) K/uL Eos # (Auto) (0.0-0.7) K/uL Baso # (Auto) (0.0-0.2) K/uL APTT (21-34) SECONDS Fibrinogen (200-400) mg/dL Puncture Site pCO2 (35-45) mm/Hg pO2 (80-100) mm/Hg HCO3 (21-28) mmol/L ABG pH (7.35-7.45) ABG Total CO2 (22-28) mmol/L ABG O2 Saturation (95-98) % ABG Base Excess (-2.0-3.0) mmol/L ABG Hemoglobin (11.7-17.4) g/dL ABG Carboxyhemoglobin (0.5-1.5) % POC ABG HHb (Measured) (0.0-5.0) % ABG Methemoglobin (0.0-3.0) % Kevon Test A-a O2 Difference mm/Hg Respiratory Index Hgb O2 Saturation (95.0-98.0) % Vent Mode Mechanical Rate FiO2 % Tidal Volume PEEP Sodium (132-148) mmol/L Potassium (3.6-5.2) mmol/L Chloride (98-107) mmol/L Carbon Dioxide (22-30) mmol/L Anion Gap (10-20) BUN (7-17) mg/dL Creatinine (0.7-1.2) mg/dL Est GFR ( Amer) Est GFR (Non-Af Amer) POC Glucose (mg/dL) (65-110) mg/dL Random Glucose (65-105) mg/dL Calcium (8.6-10.4) mg/dl Phosphorus (2.5-4.5) mg/dL Magnesium (1.6-2.3) mg/dL Total Bilirubin (0.2-1.3) mg/dL AST (14-36) U/L ALT (9-52) U/L Alkaline Phosphatase (38-126) U/L Total Protein (6.3-8.3) g/dL Albumin (3.5-5.0) g/dL Globulin (2.2-3.9) gm/dL Albumin/Globulin Ratio (1.0-2.1) Thyroid Stim Immunoglob (<140) % baseline Stool Occult Blood (NEGATIVE) Glomerular Base Mem IgG <1.0 (<1.0) AI Blood Type Blood Type Confirm Antibody Screen Laboratory Results - last 24 hr 07/10/18 07/11/18 07/11/18 08:45 05:49 05:49 WBC RBC Hgb Hct MCV MCH MCHC RDW Plt Count MPV Neut % (Auto) Lymph % (Auto) [place] % (Auto) Eos % (Auto) Baso % (Auto) Neut # (Auto) Lymph # (Auto) [place] # (Auto) Eos # (Auto) Baso # (Auto) APTT Fibrinogen Puncture Site pCO2 pO2 HCO3 ABG pH ABG Total CO2 ABG O2 Saturation ABG Base Excess ABG Hemoglobin ABG Carboxyhemoglobin POC ABG HHb (Measured) ABG Methemoglobin Kevon Test A-a O2 Difference Respiratory Index Hgb O2 Saturation Vent Mode Mechanical Rate FiO2 Tidal Volume PEEP Sodium Potassium Chloride Carbon Dioxide Anion Gap BUN Creatinine Est GFR ( Amer) Est GFR (Non-Af Amer) POC Glucose (mg/dL) Random Glucose Calcium Phosphorus Magnesium Total Bilirubin AST ALT Alkaline Phosphatase Total Protein Albumin Globulin Albumin/Globulin Ratio Thyroid Stim Immunoglob 92 Stool Occult Blood Glomerular Base Mem IgG <1.0 Blood Type Blood Type Confirm Antibody Screen 07/13/18 07/13/18 07/14/18 18:12 23:38 04:40 WBC RBC Hgb Hct MCV MCH MCHC RDW Plt Count MPV Neut % (Auto) Lymph % (Auto) [place] % (Auto) Eos % (Auto) Baso % (Auto) Neut # (Auto) Lymph # (Auto) [place] # (Auto) Eos # (Auto) Baso # (Auto) APTT Fibrinogen Puncture Site Rr pCO2 39 pO2 72 L HCO3 26.1 ABG pH 7.43 ABG Total CO2 27.1 ABG O2 Saturation 97.5 ABG Base Excess 1.5 ABG Hemoglobin 8.2 L ABG Carboxyhemoglobin 1.6 H POC ABG HHb (Measured) 2.4 ABG Methemoglobin 1.0 Kevon Test Pos A-a O2 Difference 307.0 Respiratory Index 4.3 Hgb O2 Saturation 95.1 Vent Mode Prvc Mechanical Rate 12 FiO2 60.0 Tidal Volume 450 PEEP 5 Sodium Potassium Chloride Carbon Dioxide Anion Gap BUN Creatinine Est GFR ( Amer) Est GFR (Non-Af Amer) POC Glucose (mg/dL) 179 H 146 H Random Glucose Calcium Phosphorus Magnesium Total Bilirubin AST ALT Alkaline Phosphatase Total Protein Albumin Globulin Albumin/Globulin Ratio Thyroid Stim Immunoglob Stool Occult Blood Glomerular Base Mem IgG Blood Type Blood Type Confirm Antibody Screen 07/14/18 07/14/18 07/14/18 05:17 06:31 06:31 WBC 8.8 RBC 2.46 L Hgb 7.4 L Hct 22.5 L MCV 91.4 D MCH 30.3 MCHC 33.1 RDW 15.8 H Plt Count 107 L D MPV 9.5 Neut % (Auto) 72.9 Lymph % (Auto) 15.2 L [place] % (Auto) 7.6 Eos % (Auto) 4.0 Baso % (Auto) 0.3 Neut # (Auto) 6.4 Lymph # (Auto) 1.3 [place] # (Auto) 0.7 Eos # (Auto) 0.4 Baso # (Auto) 0.0 APTT 58 H Fibrinogen Puncture Site pCO2 pO2 HCO3 ABG pH ABG Total CO2 ABG O2 Saturation ABG Base Excess ABG Hemoglobin ABG Carboxyhemoglobin POC ABG HHb (Measured) ABG Methemoglobin Kevon Test A-a O2 Difference Respiratory Index Hgb O2 Saturation Vent Mode Mechanical Rate FiO2 Tidal Volume PEEP Sodium Potassium Chloride Carbon Dioxide Anion Gap BUN Creatinine Est GFR ( Amer) Est GFR (Non-Af Amer) POC Glucose (mg/dL) 171 H Random Glucose Calcium Phosphorus Magnesium Total Bilirubin AST ALT Alkaline Phosphatase Total Protein Albumin Globulin Albumin/Globulin Ratio Thyroid Stim Immunoglob Stool Occult Blood Glomerular Base Mem IgG Blood Type Blood Type Confirm Antibody Screen 07/14/18 07/14/18 07/14/18 06:32 10:47 10:49 WBC RBC Hgb Hct MCV MCH MCHC RDW Plt Count MPV Neut % (Auto) Lymph % (Auto) [place] % (Auto) Eos % (Auto) Baso % (Auto) Neut # (Auto) Lymph # (Auto) [place] # (Auto) Eos # (Auto) Baso # (Auto) APTT Fibrinogen 477 H Puncture Site pCO2 pO2 HCO3 ABG pH ABG Total CO2 ABG O2 Saturation ABG Base Excess ABG Hemoglobin ABG Carboxyhemoglobin POC ABG HHb (Measured) ABG Methemoglobin Kevon Test A-a O2 Difference Respiratory Index Hgb O2 Saturation Vent Mode Mechanical Rate FiO2 Tidal Volume PEEP Sodium 147 Potassium 5.1 Chloride 114 H Carbon Dioxide 28 Anion Gap 11 BUN 38 H Creatinine 1.6 H Est GFR ( Amer) 41 Est GFR (Non-Af Amer) 34 POC Glucose (mg/dL) Random Glucose 176 H Calcium 6.7 L Phosphorus 3.5 Magnesium 2.3 Total Bilirubin 0.6 AST 59 H D ALT 109 H D Alkaline Phosphatase 98 Total Protein 4.3 L Albumin 2.0 L Globulin 2.4 Albumin/Globulin Ratio 0.8 L Thyroid Stim Immunoglob Stool Occult Blood Glomerular Base Mem IgG Blood Type A POSITIVE Blood Type Confirm A POSITIVE Antibody Screen Negative 07/14/18 07/14/18 11:31 17:34 WBC RBC Hgb Hct MCV MCH MCHC RDW Plt Count MPV Neut % (Auto) Lymph % (Auto) [place] % (Auto) Eos % (Auto) Baso % (Auto) Neut # (Auto) Lymph # (Auto) [place] # (Auto) Eos # (Auto) Baso # (Auto) APTT Fibrinogen Puncture Site pCO2 pO2 HCO3 ABG pH ABG Total CO2 ABG O2 Saturation ABG Base Excess ABG Hemoglobin ABG Carboxyhemoglobin POC ABG HHb (Measured) ABG Methemoglobin Kevon Test A-a O2 Difference Respiratory Index Hgb O2 Saturation Vent Mode Mechanical Rate FiO2 Tidal Volume PEEP Sodium Potassium Chloride Carbon Dioxide Anion Gap BUN Creatinine Est GFR ( Amer) Est GFR (Non-Af Amer) POC Glucose (mg/dL) 235 H 389 H Random Glucose Calcium Phosphorus Magnesium Total Bilirubin AST ALT Alkaline Phosphatase Total Protein Albumin Globulin Albumin/Globulin Ratio Thyroid Stim Immunoglob Stool Occult Blood Glomerular Base Mem IgG Blood Type Blood Type Confirm Antibody Screen Attending/Attestation - Attestation I have personally seen and examined this patient.: Yes I have fully participated in the care of the patient.: Yes I have reviewed all pertinent clinical information: Yes Notes (Text): 07/14/18 18:02 patient seen and examined patient remained intubated on ventilatory support seen by neurology Repeat CAT scan of the head Continue anticoagulation Triple-lumen catheter inserted Seen by infectious disease and continue antibiotics Spoke with the family at length
[2018-07-14 15:53] LABS: TSI 92 % baseline (<140)
--- NOTE | 2018-07-14 18:12 | PCM.PROC ---
Procedures Attestation:: I certify that I have explained the specified Operation(s) or Procedure(s), risks, benefits and reasonable alternatives to the Patient and/or other person responsible. The opportunity was given to ask questions and all questions answered - Central Line Placement Right Subclavian Triple Lumen Catheter Aseptic technique was employed throughout the procedure: Hand Hygiene done prior to procedure, Full sterile barriers (mask, hair cover, sterile gown, sterile gloves), Full body sterile drape, Chloraprep Antiseptic: 30 second prep for IJ or SC sites CVP Time Out Performed: Yes Pt. Placed on Pulse Ox Monitor: Yes Central Line Prep: Chlorhexidine-Alcohol Combination Local Anesthesia Used: Lidocaine 1% Amount of Anesthesia Used (mls): 3 Ultrasound Used for Placement: No Central Line Lumen Inserted: triple Central Line Length: 16 cm Post Procedure: Sutured in Place, Good Blood Return, All Ports Aspirated, Flushed, Capped, Sterile Dressing Applied Secured by: Suture Post procedure dressing: Chlorhexidine disc (Biopatch) Post Procedure X-Ray: Yes Patient Tolerated Procedure: Well
--- NOTE | 2018-07-14 18:25 | RAD ---
Date of service: 07/14/2018 HISTORY: Status post central line placement. COMPARISON: July 14, 2018 study performed 07:04. FINDINGS: LUNGS: Worsening pulmonary edema. PLEURA: Pleural effusions particularly on the right or inseparable from pulmonary edema. CARDIOVASCULAR: Recently placed right subclavian line in satisfactory position. OSSEOUS STRUCTURES: No significant abnormalities. VISUALIZED UPPER ABDOMEN: Normal. OTHER FINDINGS: Stable position of support apparatus including endotracheal tube and nasogastric tube. IMPRESSION: No adverse findings/no pneumothorax following right subclavian catheter placement. Catheter tip in satisfactory position in the SVC. Worsening pulmonary edema.
--- NOTE | 2018-07-14 18:58 | CT ---
Date of service: 07/14/2018 PROCEDURE: CT HEAD WITHOUT CONTRAST. HISTORY: Possible new stroke COMPARISON: July 13, 2018 TECHNIQUE: Axial computed tomography images were obtained through the head/brain without intravenous contrast. Supplemental Coronal and Sagittal projections created and reviewed. Radiation dose: Total exam DLP = 1265.90 mGy-cm. This CT exam was performed using one or more of the following dose reduction techniques: Automated exposure control, adjustment of the mA and/or kV according to patient size, and/or use of iterative reconstruction technique. FINDINGS: HEMORRHAGE: No intracranial hemorrhage. BRAIN: No mass effect or edema. Cortical atrophy and chronic microvascular ischemic change. VENTRICLES: Unremarkable. No hydrocephalus. CALVARIUM: Hyperostotic changes identified, of stable and normal variant. PARANASAL SINUSES: Incompletely visualized and mild frontal, ethmoid and maxillary sinusitis. There is an air-fluid level in the left maxillary sinus. MASTOID AIR CELLS: Unremarkable as visualized. No inflammatory changes. OTHER FINDINGS: None. IMPRESSION: No acute intracranial abnormalities. No significant findings to account for the clinical presentation. No significant interval change compared to the prior examination(s).
[2018-07-14] MEDS: Rosuvastatin Calcium 2.5 mg Tab PO SCH (21:20)
--- NOTE | 2018-07-14 21:24 | CP.PCM.PN ---
Subjective - Date & Time of Evaluation Date of Evaluation: 07/14/18 Time of Evaluation: 10:30 - Subjective Subjective: Patient seen and evaluated S/P cardic arrest Resp Failure ryan not follow commands (1) UTI (urinary tract infection)/Uro sepsis Assessment and Plan: On antibitics Status: Acute (2) Dyspnea/Resp Failure Assessment and Plan: Intubated (3) NEHA (acute kidney injury) Assessment and Plan: Likely secondary to dehydration from repeated emesis Bactrim also contributory on NS @ 100 mls/hr Status: Acute (4) Diabetes mellitus Assessment and Plan: ISS Low dose Accuchecks ACHS F/U Hgb A1c Status: Chronic (5) Prophylactic measure Assessment and Plan: PPI 40 mg IV SCDs Status: Acute Cardiomyopathy with low EF LV clot IV Heaprin and ASA Objective - Vital Signs/Intake and Output Vital Signs (last 24 hours): Temp Pulse Resp BP Pulse Ox 98 F 100 H 14 121/86 100 07/14/18 20:00 07/14/18 21:00 07/14/18 21:00 07/14/18 21:00 07/14/18 21:00 Intake and Output: 07/14/18 07/15/18 18:59 06:59 Intake Total 2321.9 343.3 Output Total 500 80 Balance 1821.9 263.3 - Medications Medications: Current Medications Acetaminophen (Tylenol 325mg Tab) 650 mg PO Q6H PRN PRN Reason: Pain, moderate (4-7) Last Admin: 07/13/18 11:00 Dose: 650 mg Acetaminophen (Tylenol 325mg Tab) 650 mg PO Q6 PRN PRN Reason: Fever >100.4 F Last Admin: 07/14/18 11:43 Dose: 650 mg Albuterol/Ipratropium (Duoneb 3 Mg/0.5 Mg (3 Ml) Ud) 3 ml INH RQ6 COUNT INCLUDES THE [facility] Last Admin: 07/14/18 19:49 Dose: 3 ml Aspirin (Ecotrin) 81 mg PO DAILY COUNT INCLUDES THE [facility] Last Admin: 07/14/18 09:54 Dose: 81 mg Clopidogrel Bisulfate (Plavix) 75 mg PO DAILY COUNT INCLUDES THE [facility] Last Admin: 07/14/18 09:54 Dose: 75 mg Ergocalciferol (Drisdol 50,000 Intl Units Cap) 1 cap PO Q7D COUNT INCLUDES THE [facility] Last Admin: 07/11/18 14:50 Dose: 1 cap Heparin Sodium/Sodium Chloride (Heparin 98943 Units/250ml 1/2 Normal Saline) 25,000 units in 250 mls @ 10.207 mls/hr IV .Q24H PRN; Protocol PRN Reason: PROTOCOL Last Admin: 07/13/18 02:00 Dose: 9 units/kg/hr, 5.103 mls/hr Dexmedetomidine HCl 200 mcg/ (Sodium Chloride) 50 mls @ 2.79 mls/hr IV TITR PRN; Protocol PRN Reason: Sedation Last Titration: 07/14/18 21:20 Dose: 1 mcg/kg/hr, 13.95 mls/hr Norepinephrine Bitartrate 4 mg (/ Sodium Chloride) 254 mls @ 19.05 mls/hr IV .[id number] PRN; Protocol PRN Reason: TITRATE PER MD ORDER Last Titration: 07/14/18 21:20 Dose: 0 mcg/min, 0 mls/hr Vancomycin HCl 1 gm/ Sodium (Chloride) 250 mls @ 166.7 mls/hr IVPB Q24H [facility]; Protocol Last Admin: 07/14/18 18:36 Dose: 166.7 mls/hr Ceftriaxone Sodium 2 gm/ (Sodium Chloride) 100 mls @ 100 mls/hr IVPB Q12H [facility]; Protocol Last Admin: 07/14/18 17:21 Dose: 100 mls/hr Insulin Aspart (Novolog) 0 unit SC Q6 [facility]; Protocol Last Admin: 07/14/18 17:37 Dose: 10 units Insulin Glargine (Lantus) 10 unit SC DAILY [facility] Last Admin: 07/14/18 10:04 Dose: 10 units Lactobacillus Acidophilus (Bacid Acidophilus) 1 cap PO Q12H [facility] Last Admin: 07/14/18 21:00 Dose: 1 cap Methimazole (Tapazole) 10 mg PO TID [facility] Last Admin: 07/14/18 17:33 Dose: 10 mg Methylprednisolone (Solu-Medrol) 20 mg IVP DAILY [facility] Last Admin: 07/14/18 09:54 Dose: 20 mg Ondansetron HCl (Zofran Inj) 4 mg IVP Q6H PRN PRN Reason: Nausea/Vomiting Last Admin: 07/08/18 13:06 Dose: 4 mg Pantoprazole Sodium (Protonix Susp) 40 mg PO BID COUNT INCLUDES THE [facility] Last Admin: 07/14/18 17:33 Dose: 40 mg Propranolol HCl (Propranolol Inj) 1 mg IVP Q6H [facility] Last Admin: 07/14/18 16:28 Dose: Not Given Rosuvastatin Calcium (Crestor) 2.5 mg PO HS COUNT INCLUDES THE [facility] Last Admin: 07/14/18 21:20 Dose: 2.5 mg - Labs Labs: 07/14/18 06:31 07/14/18 06:32 PT 16.1 SECONDS (9.7-12.2) H D 07/13/18 06:30 INR 1.5 D 07/13/18 06:30 APTT 58 SECONDS (21-34) H 07/14/18 06:31
[2018-07-15] MEDS: (Novolog) Insulin Aspart, Recombinant 100 u/ml 10 ml vial SC SCH ×4 (00:55→18:33)
[2018-07-15] MEDS: Dexmedetomidine Hydrochloride 200 MCG in Sodium Chloride 0.9% 48 ML IV PRN ×3 (01:05→23:27)
[2018-07-15] MEDS: Albuterol-Ipratrop 3 mg / 0.5 (3 ml) UD INH SCH ×3 (01:16→19:45)
[2018-07-15] MEDS: Propranolol 1 mg/mL Inj IVP SCH ×3 (04:15→21:35)
[2018-07-15] MEDS: Heparin25000 units/250ml 1/2NS 25,000 UNITS/250 ML BAG IV PRN (05:10)
[2018-07-15 06:44] LABS: BASO % 0.1 % (0.0-2.0); HEMOGLOBIN 9.6 g/dL (11.0-16.0); LYMPH # 0.8 K/uL (1.0-4.3); LYMPH % 8.5 % (20.0-40.0); MEAN CELL VOLUME 90.3 fL (81.0-99.0); MEAN CORPUSCULAR HEMOGLOBIN 30.7 pg (27.0-31.0); MEAN PLATELET VOLUME 9.6 fL (7.2-11.7); MONO # 0.9 K/uL (0.0-0.8); MONO % 9.6 % (0.0-10.0); NEUT # 7.6 K/uL (1.8-7.0); NEUT % 81.8 % (50.0-75.0); NRBC % 0.2 % (0.0-2.0); PLATELET COUNT 133 K/uL (130-400); RBC 3.13 Mil/uL (3.80-5.20); RED CELL DISTRIBUTION WIDTH 15.5 % (11.5-14.5); WHITE BLOOD COUNT 9.3 K/uL (4.8-10.8)
[2018-07-15 07:30] LABS: ALB/GLOB RATIO 0.8 (1.0-2.1); ALBUMIN 2.2 g/dL (3.5-5.0); ALT/SGPT 86 U/L (9-52); AST/SGOT 30 U/L (14-36); BLOOD UREA NITROGEN 35 mg/dL (7-17); CALCIUM 6.9 mg/dl (8.6-10.4); GFR NON-AFRICAN AMERICAN 43
--- NOTE | 2018-07-15 08:07 | CP.PCM.PN ---
Subjective - Date & Time of Evaluation Date of Evaluation: 07/15/18 Time of Evaluation: 08:00 - Subjective Subjective: Medical Attending Note: Patient seen and examined at bedside. Please note: patient is primarily alexis speaking and will respond to commands in Alexis. Patient seen with respiratory therapist this morning; responded to opening her mouth for suctioning, following eyes to light, and waking up. Unable to ROS secondary clinical condition. Objective - Vital Signs/Intake and Output Vital Signs (last 24 hours): Temp Pulse Resp BP Pulse Ox 100.1 F H 60 12 92/53 L 100 07/15/18 04:35 07/15/18 06:00 07/15/18 06:00 07/15/18 06:00 07/15/18 06:00 Intake and Output: 07/15/18 07/15/18 06:59 18:59 Intake Total 1641.0 Output Total 720 Balance 921.0 - Medications Medications: Current Medications Acetaminophen (Tylenol 325mg Tab) 650 mg PO Q6H PRN PRN Reason: Pain, moderate (4-7) Last Admin: 07/13/18 11:00 Dose: 650 mg Acetaminophen (Tylenol 325mg Tab) 650 mg PO Q6 PRN PRN Reason: Fever >100.4 F Last Admin: 07/15/18 04:35 Dose: 650 mg Albuterol/Ipratropium (Duoneb 3 Mg/0.5 Mg (3 Ml) Ud) 3 ml INH RQ6 [facility] Last Admin: 07/15/18 01:16 Dose: 3 ml Aspirin (Ecotrin) 81 mg PO DAILY [facility] Last Admin: 07/14/18 09:54 Dose: 81 mg Clopidogrel Bisulfate (Plavix) 75 mg PO DAILY [facility] Last Admin: 07/14/18 09:54 Dose: 75 mg Ergocalciferol (Drisdol 50,000 Intl Units Cap) 1 cap PO Q7D [facility] Last Admin: 07/11/18 14:50 Dose: 1 cap Heparin Sodium/Sodium Chloride (Heparin 62143 Units/250ml 1/2 Normal Saline) 25,000 units in 250 mls @ 10.207 mls/hr IV .Q24H PRN; Protocol PRN Reason: PROTOCOL Last Admin: 07/15/18 05:10 Dose: 9 units/kg/hr, 5.103 mls/hr Dexmedetomidine HCl 200 mcg/ (Sodium Chloride) 50 mls @ 2.79 mls/hr IV TITR PRN; Protocol PRN Reason: Sedation Last Admin: 07/15/18 01:05 Dose: 0.4 mcg/kg/hr, 5.58 mls/hr Norepinephrine Bitartrate 4 mg (/ Sodium Chloride) 254 mls @ 19.05 mls/hr IV .[id number] PRN; Protocol PRN Reason: TITRATE PER MD ORDER Last Titration: 07/15/18 03:00 Dose: 2 mcg/min, 7.62 mls/hr Vancomycin HCl 1 gm/ Sodium (Chloride) 250 mls @ 166.7 mls/hr IVPB Q24H [facility]; Protocol Last Admin: 07/14/18 18:36 Dose: 166.7 mls/hr Ceftriaxone Sodium 2 gm/ (Sodium Chloride) 100 mls @ 100 mls/hr IVPB Q12H [facility]; Protocol Last Admin: 07/15/18 04:35 Dose: 100 mls/hr Insulin Aspart (Novolog) 0 unit SC Q6 [facility]; Protocol Last Admin: 07/15/18 06:10 Dose: 4 units Insulin Glargine (Lantus) 10 unit SC DAILY [facility] Last Admin: 07/14/18 10:04 Dose: 10 units Lactobacillus Acidophilus (Bacid Acidophilus) 1 cap PO Q12H [facility] Last Admin: 07/14/18 21:00 Dose: 1 cap Methimazole (Tapazole) 10 mg PO TID [facility] Last Admin: 07/14/18 17:33 Dose: 10 mg Methylprednisolone (Solu-Medrol) 20 mg IVP DAILY [facility] Last Admin: 07/14/18 09:54 Dose: 20 mg Ondansetron HCl (Zofran Inj) 4 mg IVP Q6H PRN PRN Reason: Nausea/Vomiting Last Admin: 07/08/18 13:06 Dose: 4 mg Pantoprazole Sodium (Protonix Susp) 40 mg PO BID [facility] Last Admin: 07/14/18 17:33 Dose: 40 mg Propranolol HCl (Propranolol Inj) 1 mg IVP Q6H [facility] Last Admin: 07/15/18 04:15 Dose: Not Given Rosuvastatin Calcium (Crestor) 2.5 mg PO HS [facility] Last Admin: 07/14/18 21:20 Dose: 2.5 mg - Labs Labs: 07/15/18 06:36 07/15/18 06:36 PT 16.1 SECONDS (9.7-12.2) H D 07/13/18 06:30 INR 1.5 D 07/13/18 06:30 APTT 42 SECONDS (21-34) H D 07/15/18 06:36 - Constitutional Appears: Chronically Ill - Head Exam Head Exam: NORMAL INSPECTION - Eye Exam Eye Exam: EOMI. absent: Nystagmus, Scleral icterus Pupil Exam: PERRL - ENT Exam ENT Exam: Mucous Membranes Moist - Respiratory Exam Respiratory Exam: Decreased Breath Sounds, Rales, Rhonchi Additional comments: intubated on vent - Cardiovascular Exam Cardiovascular Exam: REGULAR RHYTHM, +S1, +S2 - GI/Abdominal Exam GI & Abdominal Exam: Distended, Soft, Normal Bowel Sounds. absent: Firm, Guarding, Rigid, Tenderness, Rebound - Extremities Exam Additional comments: b/l upper extremities; mild swelling, nonpitting b/l lower extremities; mild swelling nonpitting - Neurological Exam Neurological Exam: Awake - Skin Skin Exam: Dry, Intact, Normal Color, Warm Assessment and Plan (1) Septic shock Status: Acute (2) Acute respiratory failure Status: Acute (3) Urinary tract infection Status: Acute (4) Acute renal failure Status: Acute (5) Aspiration pneumonia Status: Acute (6) Diabetes mellitus Status: Chronic (7) Ventricular arrhythmia Status: Acute (8) Hyperthyroidism Status: Acute (9) Anemia Status: Acute (10) Prophylactic measure Status: Acute Attending/Attestation - Attestation I have personally seen and examined this patient.: Yes I have fully participated in the care of the patient.: Yes I have reviewed all pertinent clinical information, including history, physical exam and plan: Yes Notes (Text): 1) Septic Shock Assessment/Plan * Infectious Disease (Dr. Brock) on case-->help appreciated * Tmax: 102.1F (07/14/18) * Criteria: leukocytosis, tachycardia * Source: aspiration pneumonia and urinary tract infection * 07/07/18: Urine: E. Coli * 07/09/18: Urine: No growth * 07/07/18: blood culture: no growth after 5 days X2 * 07/09/18 Blood culture: no growth after 3 days X2 * 07/14/18: blood cultures: pending * 07/14/18: sputum culture: pending * 07/14/18: Urine culture: pending * MRSA not detected * Antibiotics changed in light of fever spike on 07/14/18 * Rocephin 2gm IVPB Q12H (active since 07/14/18) * Vancomycin 1 gram IVPB Q24H (active since 07/14/18) 2) Acute Respiratory Failure Pulmonary Edema Assessment/Plan * Intubated * Tapered down to Solumedrol 20mg IVP daily * Duonebs RQ6H PRN wheezing * Duonebs RQ6H * Sputum culture: yeast * MRSA screen: not detected * Sputum culture X2: yeast * 07/14/18: Sputum culture: pending 3) Ventricular Tachycardia Nonstemi Apical Thrombus Assessment/Plan * Code Blue 07/10: SVT==>VT required amiodarone, magnesium, one shock delivered, ordered for ekg, lizette, echo, and cardiology evaluation * Cardiology Dr Francisco on case help appreciated * When patient is stabilized will need further cardiac workup * Echocardiogram (07/07/18): left ventricle systolic function is borderline, ejection fraction is 45-50%, no aortic regurgitation is present, mitral regurgitation is mild. Mild tricuspid regurgitation. mild pulmonary hyperten tyson, mild pulmonic valvular regurgitation * Contrast echo: Large apical hypokinesis a large 30 x 20 mm soft tissue apical sessile mass suggestive of thrombus overall fraction 40%. Obtain a HUBERT or/cons ider stress card myopathy if coronary disease is excluded further findings per report * Amiodarone discontinued * Monitor electrolytes * Heparin drip * Switch from Cardizem==>propranolol 1mg IVP Q6H 4) Urinary Tract Infection Assessment/Plan * Infectious disease on board help appreciated * 07/07/18: Urine: E. Coli * 07/09/18: Urine: No growth * 07/14/18: Urine culture: pending 4) Aspiration Pneumonia Assessment/Plan * Mycoplasma negative * Legionella was negative * Influenza negative * HIV negative * Antibiotics changed in light of fever spike on 07/14/18 * Rocephin 2gm IVPB Q12H (active since 07/14/18) * Vancomycin 1 gram IVPB Q24H (active since 07/14/18) 5) Diabetes Assessment/Plan * a1c: 7.8 * hypoglycemic protocol * novolog unit subq * Lantus 10 units subcutaneous at bedtime 6) Acute on Chronic Renal Failure Assessment/Plan * Nephrology (Dr. Hyde) on board--> help appreciated * We'll continue diuresis * Patient will likely not need dialysis * renal function recovering 7) Hyperthyroidism? Low TSH, and Free T4 Assessment/Plan * Note Thyroid studies taken before amiodarone was given * Patient does not have prior thyroid history * Endocrinology (Dr. Gayle) on board help appreciated * c/w apazole 10mg PO TID * Monitor LFTs 8) Anemia Assessment/Plan * iron normal, TIBC low, iron sat normal, ferritin normal * pending stool occult blood and reticulocte count * B12 normal * Folate Normal * Improved * patient is on heparin drip secondary to apical thrombus 9) Transminitis * related to sepsis and was on amiodarone but is off * Hepatitis serology negative * improving 10) vitamin D deficiency Assessment plan * 50,000 international units once a week for at least 8-12 weeks started on July 11 11) Thrombocytopenia Assessment plan * related to HIT or sepsis? * patient has been on heparin drip * Fibrinogen elevated * pending HIT/RUSTY * (patient is on plavix/aspirin) * side effect of methiazole? * normalized 12) Prophylactic measure * Protonix 40mg PO BID * Precedex drip * Propranolol 1mg IVP Q6H * Heparin drip * 1 pressor per icu for weaning protocol Neuro was consulted yesterday due to concern for anoxic brain injury; recommended for sedation vacation and repeat head CT. Both head CTs are negative for acute findings. Attempt to speak to patient in [place] to better assessment of mental status. patient was switched off Fentanyl to Precedex. f/u repeat cultures from 07/14 Monitor Tmax in light of fever spike from yesterday TLC removed 07/14; has subclavian line
--- NOTE | 2018-07-15 08:17 | CARD ---
APPROVED REPORT Date of service: 07/11/2018 EKG Measurement Heart [id number] <Conclusion> Sinus rhythm Low voltage QRS Borderline ECG
--- NOTE | 2018-07-15 08:19 | CARD ---
APPROVED REPORT Date of service: 07/11/2018 EKG Measurement Heart [id number] <Conclusion> Normal sinus rhythm Low voltage QRS Poor R wave progression - Probably misplaced precordial electrodes PLEASE REPEAT Borderline ECG
[2018-07-15 09:51] LABS: BANDS 8 % (0-2); LYMPHOCYTE 7 % (20-40); MONOCYTE 8 % (0-10); NEUTROPHIL 77 % (50-75); TOTAL CELLS COUNTED 100
[2018-07-15 09:52] LABS: PLATELET ESTIMATE NORMAL (NORMAL)
[2018-07-15 09:55] LABS: ANISOCYTOSIS SLIGHT
[2018-07-15 09:56] LABS: HYPOCHROMIC SLIGHT; LARGE PLATELETS PRESENT; POLYCHROMIC SLIGHT
[2018-07-15 09:58] LABS: OVALOCYTES SLIGHT; POIKILOCYTOSIS SLIGHT; SCHISTOCYTES SLIGHT; TOXIC GRANULATION PRESENT
--- NOTE | 2018-07-15 10:10 | RAD ---
HISTORY: s/p intubation COMPARISON: Chest x-ray performed 07/14/18 TECHNIQUE: Chest, one view. FINDINGS: Endotracheal tube terminates approximately 2.8 cm above the key. Right-sided central venous catheter extends to the expected location of the cavoatrial junction. Nasogastric tube extends expected location of the stomach. Right-sided chest tube. LUNGS: Stable appearing pulmonary edema. Small layering right pleural effusion. No definite pneumothorax. Biapical pleural thickening. CARDIOVASCULAR: Heart size appears top normal. OSSEOUS STRUCTURES: No acute osseous abnormality identified. VISUALIZED UPPER ABDOMEN: Unremarkable. OTHER FINDINGS: None. IMPRESSION: Endotracheal tube terminates approximately 2.8 cm above the key. Right-sided central venous catheter extends to the expected location of the cavoatrial junction. Nasogastric tube extends expected location of the stomach. Right-sided chest tube. Stable appearing pulmonary edema. Small layering right pleural effusion. Biapical pleural thickening.
[2018-07-15] MEDS: Lactobacillus Acidophilus 500 MU Cap PO SCH ×2 (10:18→20:12)
[2018-07-15] MEDS: (Lantus) Insulin Glargine, Recombinant SC SCH (10:18)
[2018-07-15] MEDS: Pantoprazole 40 mg Susp UD PO SCH ×2 (10:18→18:33)
[2018-07-15] MEDS: MethylPREDNISolone 40 mg Vial IVP SCH (10:19)
--- NOTE | 2018-07-15 11:05 | CP.CCUPN ---
Addendum entered and electronically signed by [place] Rogel DO 07/15/18 19:33: Correction to Subjective: Decreased pressors requirement, currently only on Levophed 2mcg/min. NOT off pressors this AM. Original Note: <C[place] Rogel - Last Filed: 07/15/18 18:39> CCU Subjective - Physician Review Subjective (Free Text): 07/15/18 17:02 Patient seen and examined at bedside in ICU. Remains on precedex, will wean off today and attempt PS trial to assess suitability for extubation. Off pressors. Intermittently opens eyes, and intermittently tracks staff across room with eyes, but isn't following verbal or pantomimed commands. No acute events from overnight reported. CCU Objective - Vital Signs / Intake & Output Vital Signs (Last 4 hours): Vital Signs Temp Pulse Resp BP Pulse Ox 07/15/18 09:45 94.6 F L 100 07/15/18 08:45 94.2 F L 100 07/15/18 08:00 57 L 12 106/61 100 07/15/18 07:45 93.9 F L 100 Intake and Output (Last 8hrs): Intake & Output 07/14/18 07/15/18 07/15/18 22:59 06:59 14:59 Intake Total 1795.7 1052.0 95.3 Output Total 450 485 Balance 1345.7 567.0 95.3 Weight 58.1 kg Intake: IV 207 332 35 Intake, IV Amount 503.7 260.0 15.3 Left Distal Port Femoral 18.4 Left Proximal Port 33.9 Femoral Right Distal Port 350 Right Distal Port 28 44.8 2.8 Subclavian Right Hand 30 40 5 Right Medial Port 5.8 Right Medial Port 18.8 75.2 7.5 Subclavian Right Proximal Port 18.8 Right Proximal Port 0 100 Subclavian Oral 100 100 Tube Feeding 360 360 45 Blood Product 325 Red Blood Cells Cpd As1 325 Lr Unit [id number] Other 300 Red Blood Cells Cpd As1 50 Lr Unit [id number] Output: Urine 450 485 Urethral ([place]) 450 485 Other: # Bowel Movements 1 - Physical Exam Physical Exam Limitations: Positive for: Other (intubated, weaning from sedation) Head: Positive for: Atraumatic, Normocephalic Pupils: Positive for: PERRL. Negative for: Sluggish, Pinpoint Extroacular Muscles: Positive for: EOMI (not following commands for EOMI testing, but is able to track staff across room with eyes without appreciable issue), Other. Negative for: Gaze Palsy Conjunctiva: Positive for: Normal. Negative for: Injected, Icteric Mouth: Positive for: Moist Mucous Membranes, Other (ETT in place) Nose (External): Positive for: Atraumatic. Negative for: Abrasion, Contusion, Laceration Nose (Internal): Positive for: No Active Bleeding. Negative for: Epistaxis Neck: Positive for: Normal Range of Motion (passive and active (sometimes turning head to track across room)), Trachea Midline. Negative for: JVD Respiratory/Chest: Positive for: Good Air Exchange, Rhonchi (mild ronchi in bilateral bases), Other (intubated and ventilated). Negative for: Wheezes, Rales Cardiovascular: Positive for: Normal S1, S2, Peripheal Pulses Present (+2 radials), Other (alternates between regular rate in 80's and tachycardic up to 130's, appears regular rhythm during tachy phases). Negative for: Regular Rate and Rhythm, Tachycardic, Bradycardic Abdomen: Positive for: Normal Bowel Sounds. Negative for: Tenderness, Distention Upper Extremity: Positive for: Normal Inspection, NORMAL PULSES. Negative for: Cyanosis, Edema Lower Extremity: Positive for: Normal Inspection. Negative for: Edema, CALF TENDERNESS Neurological: Positive for: Other (weaning from sedation, intermittently opens eyes and tracks staff across room, but minimal spontaneous movements, not following verbal or pantomimed commands) Skin: Positive for: Warm, Dry, Normal Color Psychiatric: Positive for: Other (intermittently awake and alert, but not following commands, unable to assess mood/anxiety/mentation) - Medications Active Medications: Active Medications Generic Name Dose Route Start Last Admin Trade Name Freq PRN Reason Stop Dose Admin Acetaminophen 650 mg 07/07/18 20:03 07/13/18 11:00 Tylenol 325mg Tab PO 650 mg Q6H PRN Administration Pain, moderate (4-7) Acetaminophen 650 mg 07/12/18 15:57 07/15/18 04:35 Tylenol 325mg Tab PO 650 mg Q6 PRN Administration Fever >100.4 F Albuterol/Ipratropium 3 ml 07/14/18 20:00 07/15/18 08:28 Duoneb 3 Mg/0.5 Mg (3 Ml) Ud INH 3 ml RQ6 MANOLO Administration Aspirin 81 mg 07/12/18 10:00 07/15/18 10:18 Ecotrin PO 81 mg DAILY MANOLO Administration Clopidogrel Bisulfate 75 mg 07/14/18 10:00 07/15/18 10:18 Plavix PO 75 mg DAILY MANOLO Administration Ergocalciferol 1 cap 07/11/18 12:45 07/11/18 14:50 Drisdol 50,000 Intl Units Cap PO 1 cap Q7D MANOLO Administration Heparin Sodium/Sodium Chloride 25,000 units in 250 mls @ 10.207 mls/hr 07/11/18 09:20 07/15/18 05:10 Heparin 38367 Units/250ml 1/2 Normal Saline IV 9 units/kg/hr .Q24H PRN 5.103 mls/hr PROTOCOL Administration Protocol 18 UNITS/KG/HR Norepinephrine Bitartrate 4 mg 254 mls @ 19.05 mls/hr 07/14/18 01:02 07/15/18 03:00 / Sodium Chloride IV 2 mcg/min .[id number] PRN 7.62 mls/hr TITRATE PER MD ORDER Titration Protocol 5 MCG/MIN Vancomycin HCl 1 gm/ Sodium 250 mls @ 166.7 mls/hr 07/14/18 18:00 07/14/18 18:36 Chloride IVPB 166.7 mls/hr Q24H MANOLO Administration Protocol Ceftriaxone Sodium 2 gm/ 100 mls @ 100 mls/hr 07/14/18 17:00 07/15/18 04:35 Sodium Chloride IVPB 100 mls/hr Q12H MANOLO Administration Protocol Insulin Aspart 0 unit 07/11/18 08:28 07/15/18 06:10 Novolog SC 4 units Q6 MANOLO Administration Protocol Insulin Glargine 10 unit 07/12/18 20:00 07/15/18 10:18 Lantus SC 10 units DAILY MANOLO Administration Lactobacillus Acidophilus 1 cap 07/08/18 20:00 07/15/18 10:18 Bacid Acidophilus PO 1 cap Q12H MANOLO Administration Methimazole 10 mg 07/11/18 10:00 07/14/18 17:33 Tapazole PO 10 mg TID MANOLO Administration Methylprednisolone 20 mg 07/14/18 10:00 07/15/18 10:19 Solu-Medrol IVP 20 mg DAILY MANOLO Administration Midodrine 2.5 mg 07/15/18 10:15 07/15/18 10:18 Proamatine PO 2.5 mg Q8H MANOLO Administration Ondansetron HCl 4 mg 07/07/18 18:00 07/08/18 13:06 Zofran Inj IVP 4 mg Q6H PRN Administration Nausea/Vomiting Pantoprazole Sodium 40 mg 07/11/18 10:00 07/15/18 10:18 Protonix Susp PO 40 mg BID MANOLO Administration Rosuvastatin Calcium 2.5 mg 07/13/18 22:00 07/14/18 21:20 Crestor PO 2.5 mg HS MANOLO Administration - Patient Studies Lab Studies: Microbiology Studies 07/14/18 13:01 Gram Stain - Final Trachasp 07/09/18 17:17 Blood Culture - Final Blood NO GROWTH AFTER 5 DAYS Gram Stain - Final TEST NOT PERFORMED 07/09/18 17:16 Blood Culture - Final Blood NO GROWTH AFTER 5 DAYS Gram Stain - Final TEST NOT PERFORMED 07/12/18 20:26 Gram Stain - Final Sputum Sputum Culture - Final Yeast Species Lab Studies 07/15/18 07/15/18 07/15/18 Range/Units 06:36 06:36 06:36 WBC 9.3 (4.8-10.8) K/uL RBC 3.13 L (3.80-5.20) Mil/uL Hgb 9.6 L D (11.0-16.0) g/dL Hct 28.2 L (34.0-47.0) % MCV 90.3 (81.0-99.0) fL MCH 30.7 (27.0-31.0) pg MCHC 34.0 (33.0-37.0) g/dL RDW 15.5 H (11.5-14.5) % Plt Count 133 (130-400) K/uL MPV 9.6 (7.2-11.7) fL Neut % (Auto) 81.8 H (50.0-75.0) % Lymph % (Auto) 8.5 L (20.0-40.0) % Liberty % (Auto) 9.6 (0.0-10.0) % Eos % (Auto) 0.0 (0.0-4.0) % Baso % (Auto) 0.1 (0.0-2.0) % Neut # (Auto) 7.6 H (1.8-7.0) K/uL Lymph # (Auto) 0.8 L (1.0-4.3) K/uL Liberty # (Auto) 0.9 H (0.0-0.8) K/uL Eos # (Auto) 0.0 (0.0-0.7) K/uL Baso # (Auto) 0.0 (0.0-0.2) K/uL Neutrophils % (Manual) 77 H (50-75) % Band Neutrophils % 8 H (0-2) % Lymphocytes % (Manual) 7 L (20-40) % Monocytes % (Manual) 8 (0-10) % Toxic Granulation Present Platelet Estimate Normal (NORMAL) Large Platelets Present Polychromasia Slight Hypochromasia (manual) Slight Poikilocytosis (manual Slight Basophilic Stippling Slight Anisocytosis (manual) Slight Macrocytosis (manual) Slight Ovalocytes Slight Schistocytes Slight APTT 42 H D (21-34) SECONDS Fibrinogen (200-400) mg/dL Sodium (132-148) mmol/L Potassium (3.6-5.2) mmol/L Chloride (98-107) mmol/L Carbon Dioxide (22-30) mmol/L Anion Gap (10-20) BUN (7-17) mg/dL Creatinine (0.7-1.2) mg/dL Est GFR ( Amer) Est GFR (Non-Af Amer) POC Glucose (mg/dL) (65-110) mg/dL Random Glucose (65-105) mg/dL Calcium (8.6-10.4) mg/dl Phosphorus (2.5-4.5) mg/dL Magnesium (1.6-2.3) mg/dL Total Bilirubin (0.2-1.3) mg/dL AST (14-36) U/L ALT (9-52) U/L Alkaline Phosphatase (38-126) U/L Total Protein (6.3-8.3) g/dL Albumin (3.5-5.0) g/dL Globulin (2.2-3.9) gm/dL Albumin/Globulin Ratio (1.0-2.1) Free T4 3.02 H (0.78-2.19) ng/dL Thyroxine (T4) (5.5-11.0) ug/dL TSH 3rd Generation (0.46-4.68) mIU/L Thyroid Stim Immunoglob (<140) % baseline Blood Type Blood Type Confirm Antibody Screen 07/15/18 07/15/18 07/14/18 Range/Units 06:36 06:01 23:44 WBC (4.8-10.8) K/uL RBC (3.80-5.20) Mil/uL Hgb (11.0-16.0) g/dL Hct (34.0-47.0) % MCV (81.0-99.0) fL MCH (27.0-31.0) pg MCHC (33.0-37.0) g/dL RDW (11.5-14.5) % Plt Count (130-400) K/uL MPV (7.2-11.7) fL Neut % (Auto) (50.0-75.0) % Lymph % (Auto) (20.0-40.0) % Liberty % (Auto) (0.0-10.0) % Eos % (Auto) (0.0-4.0) % Baso % (Auto) (0.0-2.0) % Neut # (Auto) (1.8-7.0) K/uL Lymph # (Auto) (1.0-4.3) K/uL Liberty # (Auto) (0.0-0.8) K/uL Eos # (Auto) (0.0-0.7) K/uL Baso # (Auto) (0.0-0.2) K/uL Neutrophils % (Manual) (50-75) % Band Neutrophils % (0-2) % Lymphocytes % (Manual) (20-40) % Monocytes % (Manual) (0-10) % Toxic Granulation Platelet Estimate (NORMAL) Large Platelets Polychromasia Hypochromasia (manual) Poikilocytosis (manual Basophilic Stippling Anisocytosis (manual) Macrocytosis (manual) Ovalocytes Schistocytes APTT (21-34) SECONDS Fibrinogen (200-400) mg/dL Sodium 146 (132-148) mmol/L Potassium 4.3 (3.6-5.2) mmol/L Chloride 113 H (98-107) mmol/L Carbon Dioxide 25 (22-30) mmol/L Anion Gap 12 (10-20) BUN 35 H (7-17) mg/dL Creatinine 1.3 H (0.7-1.2) mg/dL Est GFR ( Amer) 52 Est GFR (Non-Af Amer) 43 POC Glucose (mg/dL) 231 H 290 H (65-110) mg/dL Random Glucose 201 H (65-105) mg/dL Calcium 6.9 L (8.6-10.4) mg/dl Phosphorus 3.4 (2.5-4.5) mg/dL Magnesium 2.0 (1.6-2.3) mg/dL Total Bilirubin 0.6 (0.2-1.3) mg/dL AST 30 (14-36) U/L ALT 86 H D (9-52) U/L Alkaline Phosphatase 103 (38-126) U/L Total Protein 4.8 L (6.3-8.3) g/dL Albumin 2.2 L (3.5-5.0) g/dL Globulin 2.6 (2.2-3.9) gm/dL Albumin/Globulin Ratio 0.8 L (1.0-2.1) Free T4 (0.78-2.19) ng/dL Thyroxine (T4) 8.26 (5.5-11.0) ug/dL TSH 3rd Generation < 0.02 L (0.46-4.68) mIU/L Thyroid Stim Immunoglob (<140) % baseline Blood Type Blood Type Confirm Antibody Screen 07/14/18 07/14/18 07/14/18 Range/Units 17:34 11:31 10:49 WBC (4.8-10.8) K/uL RBC (3.80-5.20) Mil/uL Hgb (11.0-16.0) g/dL Hct (34.0-47.0) % MCV (81.0-99.0) fL MCH (27.0-31.0) pg MCHC (33.0-37.0) g/dL RDW (11.5-14.5) % Plt Count (130-400) K/uL MPV (7.2-11.7) fL Neut % (Auto) (50.0-75.0) % Lymph % (Auto) (20.0-40.0) % Liberty % (Auto) (0.0-10.0) % Eos % (Auto) (0.0-4.0) % Baso % (Auto) (0.0-2.0) % Neut # (Auto) (1.8-7.0) K/uL Lymph # (Auto) (1.0-4.3) K/uL Liberty # (Auto) (0.0-0.8) K/uL Eos # (Auto) (0.0-0.7) K/uL Baso # (Auto) (0.0-0.2) K/uL Neutrophils % (Manual) (50-75) % Band Neutrophils % (0-2) % Lymphocytes % (Manual) (20-40) % Monocytes % (Manual) (0-10) % Toxic Granulation Platelet Estimate (NORMAL) Large Platelets Polychromasia Hypochromasia (manual) Poikilocytosis (manual Basophilic Stippling Anisocytosis (manual) Macrocytosis (manual) Ovalocytes Schistocytes APTT (21-34) SECONDS Fibrinogen (200-400) mg/dL Sodium (132-148) mmol/L Potassium (3.6-5.2) mmol/L Chloride (98-107) mmol/L Carbon Dioxide (22-30) mmol/L Anion Gap (10-20) BUN (7-17) mg/dL Creatinine (0.7-1.2) mg/dL Est GFR ( Amer) Est GFR (Non-Af Amer) POC Glucose (mg/dL) 389 H 235 H (65-110) mg/dL Random Glucose (65-105) mg/dL Calcium (8.6-10.4) mg/dl Phosphorus (2.5-4.5) mg/dL Magnesium (1.6-2.3) mg/dL Total Bilirubin (0.2-1.3) mg/dL AST (14-36) U/L ALT (9-52) U/L Alkaline Phosphatase (38-126) U/L Total Protein (6.3-8.3) g/dL Albumin (3.5-5.0) g/dL Globulin (2.2-3.9) gm/dL Albumin/Globulin Ratio (1.0-2.1) Free T4 (0.78-2.19) ng/dL Thyroxine (T4) (5.5-11.0) ug/dL TSH 3rd Generation (0.46-4.68) mIU/L Thyroid Stim Immunoglob (<140) % baseline Blood Type A POSITIVE Blood Type Confirm A POSITIVE Antibody Screen Negative 07/14/18 07/11/18 Range/Units 10:47 05:49 WBC (4.8-10.8) K/uL RBC (3.80-5.20) Mil/uL Hgb (11.0-16.0) g/dL Hct (34.0-47.0) % MCV (81.0-99.0) fL MCH (27.0-31.0) pg MCHC (33.0-37.0) g/dL RDW (11.5-14.5) % Plt Count (130-400) K/uL MPV (7.2-11.7) fL Neut % (Auto) (50.0-75.0) % Lymph % (Auto) (20.0-40.0) % Liberty % (Auto) (0.0-10.0) % Eos % (Auto) (0.0-4.0) % Baso % (Auto) (0.0-2.0) % Neut # (Auto) (1.8-7.0) K/uL Lymph # (Auto) (1.0-4.3) K/uL Liberty # (Auto) (0.0-0.8) K/uL Eos # (Auto) (0.0-0.7) K/uL Baso # (Auto) (0.0-0.2) K/uL Neutrophils % (Manual) (50-75) % Band Neutrophils % (0-2) % Lymphocytes % (Manual) (20-40) % Monocytes % (Manual) (0-10) % Toxic Granulation Platelet Estimate (NORMAL) Large Platelets Polychromasia Hypochromasia (manual) Poikilocytosis (manual Basophilic Stippling Anisocytosis (manual) Macrocytosis (manual) Ovalocytes Schistocytes APTT (21-34) SECONDS Fibrinogen 477 H (200-400) mg/dL Sodium (132-148) mmol/L Potassium (3.6-5.2) mmol/L Chloride (98-107) mmol/L Carbon Dioxide (22-30) mmol/L Anion Gap (10-20) BUN (7-17) mg/dL Creatinine (0.7-1.2) mg/dL Est GFR ( Amer) Est GFR (Non-Af Amer) POC Glucose (mg/dL) (65-110) mg/dL Random Glucose (65-105) mg/dL Calcium (8.6-10.4) mg/dl Phosphorus (2.5-4.5) mg/dL Magnesium (1.6-2.3) mg/dL Total Bilirubin (0.2-1.3) mg/dL AST (14-36) U/L ALT (9-52) U/L Alkaline Phosphatase (38-126) U/L Total Protein (6.3-8.3) g/dL Albumin (3.5-5.0) g/dL Globulin (2.2-3.9) gm/dL Albumin/Globulin Ratio (1.0-2.1) Free T4 (0.78-2.19) ng/dL Thyroxine (T4) (5.5-11.0) ug/dL TSH 3rd Generation (0.46-4.68) mIU/L Thyroid Stim Immunoglob 92 (<140) % baseline Blood Type Blood Type Confirm Antibody Screen Laboratory Results - last 24 hr 07/11/18 07/14/18 07/14/18 05:49 10:47 10:49 WBC RBC Hgb Hct MCV MCH MCHC RDW Plt Count MPV Neut % (Auto) Lymph % (Auto) Liberty % (Auto) Eos % (Auto) Baso % (Auto) Neut # (Auto) Lymph # (Auto) Liberty # (Auto) Eos # (Auto) Baso # (Auto) Neutrophils % (Manual) Band Neutrophils % Lymphocytes % (Manual) Monocytes % (Manual) Toxic Granulation Platelet Estimate Large Platelets Polychromasia Hypochromasia (manual) Poikilocytosis (manual Basophilic Stippling Anisocytosis (manual) Macrocytosis (manual) Ovalocytes Schistocytes APTT Fibrinogen 477 H Sodium Potassium Chloride Carbon Dioxide Anion Gap BUN Creatinine Est GFR ( Amer) Est GFR (Non-Af Amer) POC Glucose (mg/dL) Random Glucose Calcium Phosphorus Magnesium Total Bilirubin AST ALT Alkaline Phosphatase Total Protein Albumin Globulin Albumin/Globulin Ratio Free T4 Thyroxine (T4) TSH 3rd Generation Thyroid Stim Immunoglob 92 Blood Type A POSITIVE Blood Type Confirm A POSITIVE Antibody Screen Negative 07/14/18 07/14/18 07/14/18 11:31 17:34 23:44 WBC RBC Hgb Hct MCV MCH MCHC RDW Plt Count MPV Neut % (Auto) Lymph % (Auto) Liberty % (Auto) Eos % (Auto) Baso % (Auto) Neut # (Auto) Lymph # (Auto) Liberty # (Auto) Eos # (Auto) Baso # (Auto) Neutrophils % (Manual) Band Neutrophils % Lymphocytes % (Manual) Monocytes % (Manual) Toxic Granulation Platelet Estimate Large Platelets Polychromasia Hypochromasia (manual) Poikilocytosis (manual Basophilic Stippling Anisocytosis (manual) Macrocytosis (manual) Ovalocytes Schistocytes APTT Fibrinogen Sodium Potassium Chloride Carbon Dioxide Anion Gap BUN Creatinine Est GFR ( Amer) Est GFR (Non-Af Amer) POC Glucose (mg/dL) 235 H 389 H 290 H Random Glucose Calcium Phosphorus Magnesium Total Bilirubin AST ALT Alkaline Phosphatase Total Protein Albumin Globulin Albumin/Globulin Ratio Free T4 Thyroxine (T4) TSH 3rd Generation Thyroid Stim Immunoglob Blood Type Blood Type Confirm Antibody Screen 07/15/18 07/15/18 07/15/18 06:01 06:36 06:36 WBC RBC Hgb Hct MCV MCH MCHC RDW Plt Count MPV Neut % (Auto) Lymph % (Auto) Liberty % (Auto) Eos % (Auto) Baso % (Auto) Neut # (Auto) Lymph # (Auto) Liberty # (Auto) Eos # (Auto) Baso # (Auto) Neutrophils % (Manual) Band Neutrophils % Lymphocytes % (Manual) Monocytes % (Manual) Toxic Granulation Platelet Estimate Large Platelets Polychromasia Hypochromasia (manual) Poikilocytosis (manual Basophilic Stippling Anisocytosis (manual) Macrocytosis (manual) Ovalocytes Schistocytes APTT Fibrinogen Sodium 146 Potassium 4.3 Chloride 113 H Carbon Dioxide 25 Anion Gap 12 BUN 35 H Creatinine 1.3 H Est GFR ( Amer) 52 Est GFR (Non-Af Amer) 43 POC Glucose (mg/dL) 231 H Random Glucose 201 H Calcium 6.9 L Phosphorus 3.4 Magnesium 2.0 Total Bilirubin 0.6 AST 30 ALT 86 H D Alkaline Phosphatase 103 Total Protein 4.8 L Albumin 2.2 L Globulin 2.6 Albumin/Globulin Ratio 0.8 L Free T4 3.02 H Thyroxine (T4) 8.26 TSH 3rd Generation < 0.02 L Thyroid Stim Immunoglob Blood Type Blood Type Confirm Antibody Screen 07/15/18 07/15/18 06:36 06:36 WBC 9.3 RBC 3.13 L Hgb 9.6 L D Hct 28.2 L MCV 90.3 MCH 30.7 MCHC 34.0 RDW 15.5 H Plt Count 133 MPV 9.6 Neut % (Auto) 81.8 H Lymph % (Auto) 8.5 L Liberty % (Auto) 9.6 Eos % (Auto) 0.0 Baso % (Auto) 0.1 Neut # (Auto) 7.6 H Lymph # (Auto) 0.8 L Liberty # (Auto) 0.9 H Eos # (Auto) 0.0 Baso # (Auto) 0.0 Neutrophils % (Manual) 77 H Band Neutrophils % 8 H Lymphocytes % (Manual) 7 L Monocytes % (Manual) 8 Toxic Granulation Present Platelet Estimate Normal Large Platelets Present Polychromasia Slight Hypochromasia (manual) Slight Poikilocytosis (manual Slight Basophilic Stippling Slight Anisocytosis (manual) Slight Macrocytosis (manual) Slight Ovalocytes Slight Schistocytes Slight APTT 42 H D Fibrinogen Sodium Potassium Chloride Carbon Dioxide Anion Gap BUN Creatinine Est GFR ( Amer) Est GFR (Non-Af Amer) POC Glucose (mg/dL) Random Glucose Calcium Phosphorus Magnesium Total Bilirubin AST ALT Alkaline Phosphatase Total Protein Albumin Globulin Albumin/Globulin Ratio Free T4 Thyroxine (T4) TSH 3rd Generation Thyroid Stim Immunoglob Blood Type Blood Type Confirm Antibody Screen Fingerstick Blood Sugar Results: 231 Review of Systems - Review of Systems Systems not reviewed;Unavailable: Intubated Assessment/Plan - Assessment and Plan (Free Text) Assessment: This is a 52 yo female with PMH of DM2 and hypercholesterolemia who presented to with cough, post-tussive emesis, and malaise x2-3 weeks. She was admitted to the ICU for respiratory failure and acute renal failure. Remains intubated. Plan: Neuro: - anoxic brain injury - weaned precedex, briefly became agitated but calmed again, continue precedex only PRN - goals of care to be discussed - temps improved, warming blanket off Pulm: - hypoxic respiratory failure secondary to pulmonary congestion, renal failure - Goal is SaO2 > 92% and paO2 > 55 - Duonebs 2 ml INH RQ4 - daily cpap trial, failed trial today, will attempt again tomorrow CV: - cardiac arrest from unknown etiology - Starting midodrine q8, if BP improves will wean levophed off - Cardiology consulted. Appreciate recs. - repeat ECHO from shows left ventricular thrombus; heparin drip held today due to bloody secretions, will recheck H&H tomorrow and if stable will restart - continue daily aspirin/plavix, propranolol Q6H, crestor qHS - intermittently tachy up to 130s, appears regular, but hx of paroxysmal afib, if BP becomes affected can consider cardizem drip GI: - Nepro for tube feeds - Protonix BID for GI ppx Renal: - acute on chronic renal failure stage II, does not require dialysis as per Nephro - avoid nephrotoxic drugs Heme: - no acute issues - continue to monitor H/H - heparin drip stopped due to bloody secretions in ETT, will cover DVT ppx with SCDs for now Endo: - 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 - ISS for coverage, q6h - Solu-medrol 20 mg IV daily - methimazole 10 mg PO TID ID: - aspiration pneumonitis/pneumonia, recent UTI - afebrile, leukocytosis trending down - Now on Vanco/Rocephin, as per ID - ID following, appreciate all recs Dispo: ICU, pending another PS/CPAP trial, remains intubated, weaning off Levophed with Midodrine FEN: NPO, on Tube Feeds Access: Peripheral IVs, Left fem TLC, Hernandes, ETT, OGT Consults: Palliative, Endo, Nephro, Cardio, Neuro, Cardio Ppx: Protonix for GI, SCDs for DVT while off heparin Code status: FULL Patient seen, reviewed, and discussed with attending, Dr. Olivia Nesbitt <Dian Nesbitt - Last Filed: 07/20/18 19:46> CCU Subjective - Physician Review Critical Care Time Spent (in minutes): 32 CCU Objective - Vital Signs / Intake & Output Vital Signs (Last 4 hours): Vital Signs Temp Pulse Resp BP Pulse Ox 07/20/18 19:20 76 12 110/48 L 100 07/20/18 19:05 70 17 110/50 L 100 07/20/18 19:00 71 11 L 100 07/20/18 18:50 69 10 L 120/57 L 100 07/20/18 18:35 71 15 119/59 L 100 07/20/18 18:21 73 16 121/54 L 100 07/20/18 18:05 72 19 125/59 L 100 07/20/18 18:00 70 16 100 07/20/18 17:50 70 10 L 125/60 100 07/20/18 17:35 76 20 126/61 100 07/20/18 17:20 71 10 L 131/61 100 07/20/18 17:05 71 10 L 127/60 100 07/20/18 17:04 136/63 07/20/18 17:00 74 17 100 07/20/18 16:50 73 11 L 136/63 100 07/20/18 16:35 72 17 125/63 100 07/20/18 16:20 73 15 128/60 100 07/20/18 16:05 72 13 122/59 L 100 07/20/18 16:00 98.6 F 70 14 100 07/20/18 15:50 75 11 L 135/67 100 Intake and Output (Last 8hrs): Intake & Output 07/20/18 07/20/18 07/20/18 06:59 14:59 22:59 Intake Total 1045.75 563.15 299.5 Output Total 200 800 Balance 845.75 563.15 -500.5 Weight 125 lb 1.6 oz Intake: IV 79.55 220.45 0 Intake, IV Amount 879.2 242.7 164.5 Right Distal Port 208.7 5.8 14.5 Subclavian Right Medial Port 170.5 236.9 150 Subclavian Right Proximal Port 500 Subclavian Tube Feeding 37 100 135 Other 50 Output: Urine 200 800 Urine, Voided 200 800 Other: # Voids Urine, Voided 0 # Bowel Movements 1 - Medications Active Medications: Active Medications Generic Name Dose Route Start Last Admin Trade Name Freq PRN Reason Stop Dose Admin Acetaminophen 650 mg 07/12/18 15:57 07/19/18 21:04 Tylenol 325mg Tab PO 650 mg Q6 PRN Administration Fever >100.4 F Albuterol/Ipratropium 3 ml 07/14/18 20:00 07/20/18 19:24 Duoneb 3 Mg/0.5 Mg (3 Ml) Ud INH 3 ml RQ6 MANOLO Administration Apixaban 2.5 mg 07/18/18 18:00 07/20/18 17:04 Eliquis PO 2.5 mg BID MANOLO Administration Aspirin 81 mg 07/17/18 10:00 07/20/18 10:10 Aspirin Chewable GT 81 mg DAILY MANOLO Administration Ergocalciferol 1 cap 07/11/18 12:45 07/18/18 12:07 Drisdol 50,000 Intl Units Cap PO 1 cap Q7D MANOLO Administration Furosemide 20 mg 07/17/18 18:00 07/20/18 17:04 Lasix IVP 20 mg BID MANOLO Administration Vancomycin HCl 1 gm/ Sodium 250 mls @ 166.7 mls/hr 07/14/18 18:00 07/19/18 17:00 Chloride IVPB 166.7 mls/hr Q24H MANOLO Administration Protocol Dexmedetomidine HCl 200 mcg/ 50 mls @ 2.91 mls/hr 07/15/18 19:55 07/20/18 15:00 Sodium Chloride IV 0.2 mcg/kg/hr TITR PRN 2.91 mls/hr Sedation Titration Protocol 0.2 MCG/KG/HR Norepinephrine Bitartrate 4 mg 254 mls @ 15.24 mls/hr 07/20/18 01:13 07/20/18 10:00 / Dextrose IV 8 mcg/min .[id number] PRN 30.48 mls/hr TITRATE PER MD ORDER Administration Protocol 4 MCG/MIN Meropenem 1 gm/ Sodium 100 mls @ 100 mls/hr 07/20/18 11:45 07/20/18 19:02 Chloride IVPB 100 mls/hr Q8H MANOLO Administration Protocol Insulin Aspart 0 unit 07/11/18 08:28 07/20/18 19:00 Novolog SC 2 units Q6 MANOLO Administration Protocol Insulin Glargine 20 unit 07/17/18 09:46 07/20/18 09:10 Lantus SC 10 u Q12 MANOLO Administration Lactobacillus Acidophilus 1 cap 07/08/18 20:00 07/20/18 08:20 Bacid Acidophilus PO 1 cap Q12H MANOLO Administration Methimazole 10 mg 07/11/18 10:00 07/20/18 17:04 Tapazole PO 10 mg TID MANOLO Administration Pantoprazole Sodium 40 mg 07/20/18 10:00 07/20/18 10:12 Protonix Susp PO Not Given DAILY MANOLO Propranolol HCl 5 mg 07/16/18 10:00 07/20/18 17:04 Inderal PO 5 mg TID MANOLO Administration Rosuvastatin Calcium 2.5 mg 07/13/18 22:00 07/19/18 23:35 Crestor PO 2.5 mg HS MANOLO Administration - Patient Studies Lab Studies: Lab Studies 07/20/18 07/20/18 07/20/18 Range/Units 12:27 11:39 11:19 WBC 14.4 H (4.8-10.8) K/uL RBC 2.89 L (3.80-5.20) Mil/uL Hgb 8.6 L (11.0-16.0) g/dL Hct 26.0 L (34.0-47.0) % MCV 90.0 (81.0-99.0) fL MCH 29.9 (27.0-31.0) pg MCHC 33.2 (33.0-37.0) g/dL RDW 15.7 H (11.5-14.5) % Plt Count 216 (130-400) K/uL MPV 9.7 (7.2-11.7) fL Neut % (Auto) 83.3 H (50.0-75.0) % Lymph % (Auto) 9.4 L (20.0-40.0) % Liberty % (Auto) 5.2 (0.0-10.0) % Eos % (Auto) 1.5 (0.0-4.0) % Baso % (Auto) 0.6 (0.0-2.0) % Neut # (Auto) 12.0 H (1.8-7.0) K/uL Lymph # (Auto) 1.4 (1.0-4.3) K/uL Liberty # (Auto) 0.8 (0.0-0.8) K/uL Eos # (Auto) 0.2 (0.0-0.7) K/uL Baso # (Auto) 0.1 (0.0-0.2) K/uL Neutrophils % (Manual) 79 H (50-75) % Band Neutrophils % 3 H (0-2) % Lymphocytes % (Manual) 12 L (20-40) % Monocytes % (Manual) 4 (0-10) % Eosinophils % (Manual) 2 (0-4) % Platelet Estimate Normal (NORMAL) Polychromasia Slight Hypochromasia (manual) Slight Anisocytosis (manual) Slight PT (9.7-12.2) SECONDS INR APTT (21-34) SECONDS Puncture Site pCO2 (35-45) mm/Hg pO2 (80-100) mm/Hg HCO3 (21-28) mmol/L ABG pH (7.35-7.45) ABG Total CO2 (22-28) mmol/L ABG O2 Saturation (95-98) % ABG Base Excess (-2.0-3.0) mmol/L ABG Hemoglobin (11.7-17.4) g/dL ABG Carboxyhemoglobin (0.5-1.5) % POC ABG HHb (Measured) (0.0-5.0) % ABG Methemoglobin (0.0-3.0) % Kevon Test ABG Potassium (3.6-5.2) mmol/L A-a O2 Difference mm/Hg Respiratory Index Hgb O2 Saturation (95.0-98.0) % Glucose (65-105) mg/dl Lactate (0.7-2.1) mmol/L Vent Mode Mechanical Rate FiO2 % Tidal Volume PEEP Crit Value Called To Crit Value Called By Crit Value Read Back Blood Gas Notified Time Sodium 141 (132-148) mmol/L Potassium 4.3 (3.6-5.2) mmol/L Chloride 107 (98-107) mmol/L Carbon Dioxide 27 (22-30) mmol/L Anion Gap 11 (10-20) BUN 27 H (7-17) mg/dL Creatinine 1.1 (0.7-1.2) mg/dL Est GFR ( Amer) > 60 Est GFR (Non-Af Amer) 52 POC Glucose (mg/dL) (65-110) mg/dL Random Glucose 177 H (65-105) mg/dL Lactic Acid 0.9 (0.7-2.1) mmol/L Calcium 8.1 L (8.6-10.4) mg/dl Phosphorus 2.9 (2.5-4.5) mg/dL Magnesium 2.2 (1.6-2.3) mg/dL Total Bilirubin 0.8 (0.2-1.3) mg/dL AST 28 (14-36) U/L ALT 42 (9-52) U/L Alkaline Phosphatase 100 (38-126) U/L Total Protein 4.9 L (6.3-8.3) g/dL Albumin 2.1 L (3.5-5.0) g/dL Globulin 2.7 (2.2-3.9) gm/dL Albumin/Globulin Ratio 0.8 L (1.0-2.1) Procalcitonin (0.19-0.49) NG/ML Free T4 (0.78-2.19) ng/dL Total T3 0.857 L (1.49-2.60) nmol/L TSH 3rd Generation (0.46-4.68) mIU/L Arterial Blood Potassium (3.6-5.2) mmol/L Vancomycin Trough (5.0-10.0) ug/mL 07/20/18 07/20/18 07/20/18 Range/Units 11:19 11:18 11:18 WBC (4.8-10.8) K/uL RBC (3.80-5.20) Mil/uL Hgb (11.0-16.0) g/dL Hct (34.0-47.0) % MCV (81.0-99.0) fL MCH (27.0-31.0) pg MCHC (33.0-37.0) g/dL RDW (11.5-14.5) % Plt Count (130-400) K/uL MPV (7.2-11.7) fL Neut % (Auto) (50.0-75.0) % Lymph % (Auto) (20.0-40.0) % Liberty % (Auto) (0.0-10.0) % Eos % (Auto) (0.0-4.0) % Baso % (Auto) (0.0-2.0) % Neut # (Auto) (1.8-7.0) K/uL Lymph # (Auto) (1.0-4.3) K/uL [place] # (Auto) (0.0-0.8) K/uL Eos # (Auto) (0.0-0.7) K/uL Baso # (Auto) (0.0-0.2) K/uL Neutrophils % (Manual) (50-75) % Band Neutrophils % (0-2) % Lymphocytes % (Manual) (20-40) % Monocytes % (Manual) (0-10) % Eosinophils % (Manual) (0-4) % Platelet Estimate (NORMAL) Polychromasia Hypochromasia (manual) Anisocytosis (manual) PT 17.2 H (9.7-12.2) SECONDS INR 1.6 APTT 32 (21-34) SECONDS Puncture Site pCO2 (35-45) mm/Hg pO2 (80-100) mm/Hg HCO3 (21-28) mmol/L ABG pH (7.35-7.45) ABG Total CO2 (22-28) mmol/L ABG O2 Saturation (95-98) % ABG Base Excess (-2.0-3.0) mmol/L ABG Hemoglobin (11.7-17.4) g/dL ABG Carboxyhemoglobin (0.5-1.5) % POC ABG HHb (Measured) (0.0-5.0) % ABG Methemoglobin (0.0-3.0) % Kevon Test ABG Potassium (3.6-5.2) mmol/L A-a O2 Difference mm/Hg Respiratory Index Hgb O2 Saturation (95.0-98.0) % Glucose (65-105) mg/dl Lactate (0.7-2.1) mmol/L Vent Mode Mechanical Rate FiO2 % Tidal Volume PEEP Crit Value Called To Crit Value Called By Crit Value Read Back Blood Gas Notified Time Sodium (132-148) mmol/L Potassium (3.6-5.2) mmol/L Chloride (98-107) mmol/L Carbon Dioxide (22-30) mmol/L Anion Gap (10-20) BUN (7-17) mg/dL Creatinine (0.7-1.2) mg/dL Est GFR ( Amer) Est GFR (Non-Af Amer) POC Glucose (mg/dL) (65-110) mg/dL Random Glucose (65-105) mg/dL Lactic Acid (0.7-2.1) mmol/L Calcium (8.6-10.4) mg/dl Phosphorus (2.5-4.5) mg/dL Magnesium (1.6-2.3) mg/dL Total Bilirubin (0.2-1.3) mg/dL AST (14-36) U/L ALT (9-52) U/L Alkaline Phosphatase (38-126) U/L Total Protein (6.3-8.3) g/dL Albumin (3.5-5.0) g/dL Globulin (2.2-3.9) gm/dL Albumin/Globulin Ratio (1.0-2.1) Procalcitonin 3.81 H (0.19-0.49) NG/ML Free T4 2.35 H (0.78-2.19) ng/dL Total T3 (1.49-2.60) nmol/L TSH 3rd Generation (0.46-4.68) mIU/L Arterial Blood Potassium (3.6-5.2) mmol/L Vancomycin Trough (5.0-10.0) ug/mL 07/20/18 07/20/18 07/20/18 Range/Units 11:18 11:18 06:22 WBC (4.8-10.8) K/uL RBC (3.80-5.20) Mil/uL Hgb (11.0-16.0) g/dL Hct (34.0-47.0) % MCV (81.0-99.0) fL MCH (27.0-31.0) pg MCHC (33.0-37.0) g/dL RDW (11.5-14.5) % Plt Count (130-400) K/uL MPV (7.2-11.7) fL Neut % (Auto) (50.0-75.0) % Lymph % (Auto) (20.0-40.0) % [place] % (Auto) (0.0-10.0) % Eos % (Auto) (0.0-4.0) % Baso % (Auto) (0.0-2.0) % Neut # (Auto) (1.8-7.0) K/uL Lymph # (Auto) (1.0-4.3) K/uL [place] # (Auto) (0.0-0.8) K/uL Eos # (Auto) (0.0-0.7) K/uL Baso # (Auto) (0.0-0.2) K/uL Neutrophils % (Manual) (50-75) % Band Neutrophils % (0-2) % Lymphocytes % (Manual) (20-40) % Monocytes % (Manual) (0-10) % Eosinophils % (Manual) (0-4) % Platelet Estimate (NORMAL) Polychromasia Hypochromasia (manual) Anisocytosis (manual) PT (9.7-12.2) SECONDS INR APTT (21-34) SECONDS Puncture Site pCO2 (35-45) mm/Hg pO2 (80-100) mm/Hg HCO3 (21-28) mmol/L ABG pH (7.35-7.45) ABG Total CO2 (22-28) mmol/L ABG O2 Saturation (95-98) % ABG Base Excess (-2.0-3.0) mmol/L ABG Hemoglobin (11.7-17.4) g/dL ABG Carboxyhemoglobin (0.5-1.5) % POC ABG HHb (Measured) (0.0-5.0) % ABG Methemoglobin (0.0-3.0) % Kevon Test ABG Potassium (3.6-5.2) mmol/L A-a O2 Difference mm/Hg Respiratory Index Hgb O2 Saturation (95.0-98.0) % Glucose (65-105) mg/dl Lactate (0.7-2.1) mmol/L Vent Mode Mechanical Rate FiO2 % Tidal Volume PEEP Crit Value Called To Crit Value Called By Crit Value Read Back Blood Gas Notified Time Sodium 143 (132-148) mmol/L Potassium 5.5 H (3.6-5.2) mmol/L Chloride 108 H (98-107) mmol/L Carbon Dioxide 30 (22-30) mmol/L Anion Gap 10 (10-20) BUN 29 H (7-17) mg/dL Creatinine 1.2 (0.7-1.2) mg/dL Est GFR ( Amer) 57 Est GFR (Non-Af Amer) 47 POC Glucose (mg/dL) (65-110) mg/dL Random Glucose 170 H (65-105) mg/dL Lactic Acid (0.7-2.1) mmol/L Calcium 8.4 L (8.6-10.4) mg/dl Phosphorus 3.2 (2.5-4.5) mg/dL Magnesium 2.5 H (1.6-2.3) mg/dL Total Bilirubin 1.2 (0.2-1.3) mg/dL AST 41 H D (14-36) U/L ALT 54 H D (9-52) U/L Alkaline Phosphatase 121 (38-126) U/L Total Protein 5.2 L (6.3-8.3) g/dL Albumin 2.4 L (3.5-5.0) g/dL Globulin 2.8 (2.2-3.9) gm/dL Albumin/Globulin Ratio 0.9 L (1.0-2.1) Procalcitonin (0.19-0.49) NG/ML Free T4 (0.78-2.19) ng/dL Total T3 (1.49-2.60) nmol/L TSH 3rd Generation < 0.02 L (0.46-4.68) mIU/L Arterial Blood Potassium (3.6-5.2) mmol/L Vancomycin Trough 24.0 H (5.0-10.0) ug/mL 07/20/18 07/20/18 07/20/18 Range/Units 06:22 06:07 04:30 WBC 17.0 H D (4.8-10.8) K/uL RBC 3.09 L (3.80-5.20) Mil/uL Hgb 9.1 L (11.0-16.0) g/dL Hct 28.1 L (34.0-47.0) % MCV 91.0 (81.0-99.0) fL MCH 29.5 (27.0-31.0) pg MCHC 32.4 L (33.0-37.0) g/dL RDW 15.8 H (11.5-14.5) % Plt Count 202 (130-400) K/uL MPV 10.5 (7.2-11.7) fL Neut % (Auto) 83.8 H (50.0-75.0) % Lymph % (Auto) 8.5 L (20.0-40.0) % [place] % (Auto) 6.0 (0.0-10.0) % Eos % (Auto) 1.4 (0.0-4.0) % Baso % (Auto) 0.3 (0.0-2.0) % Neut # (Auto) 14.2 H (1.8-7.0) K/uL Lymph # (Auto) 1.4 (1.0-4.3) K/uL [place] # (Auto) 1.0 H (0.0-0.8) K/uL Eos # (Auto) 0.2 (0.0-0.7) K/uL Baso # (Auto) 0.0 (0.0-0.2) K/uL Neutrophils % (Manual) 73 (50-75) % Band Neutrophils % 7 H (0-2) % Lymphocytes % (Manual) 13 L (20-40) % Monocytes % (Manual) 6 (0-10) % Eosinophils % (Manual) 1 (0-4) % Platelet Estimate Normal (NORMAL) Polychromasia Slight Hypochromasia (manual) Slight Anisocytosis (manual) Slight PT (9.7-12.2) SECONDS INR APTT (21-34) SECONDS Puncture Site Rb pCO2 43 (35-45) mm/Hg pO2 109 H (80-100) mm/Hg HCO3 26.2 (21-28) mmol/L ABG pH 7.40 (7.35-7.45) ABG Total CO2 27.9 (22-28) mmol/L ABG O2 Saturation 98.9 H (95-98) % ABG Base Excess 1.6 (-2.0-3.0) mmol/L ABG Hemoglobin 9.5 L (11.7-17.4) g/dL ABG Carboxyhemoglobin 2.1 H (0.5-1.5) % POC ABG HHb (Measured) 1.1 (0.0-5.0) % ABG Methemoglobin 0.6 (0.0-3.0) % Kevon Test Na ABG Potassium (3.6-5.2) mmol/L A-a O2 Difference 194.0 mm/Hg Respiratory Index 1.8 Hgb O2 Saturation 96.2 (95.0-98.0) % Glucose (65-105) mg/dl Lactate (0.7-2.1) mmol/L Vent Mode Prvc Mechanical Rate 10 FiO2 50.0 % Tidal Volume 450 PEEP 7 Crit Value Called To Crit Value Called By Crit Value Read Back Blood Gas Notified Time Sodium (132-148) mmol/L Potassium (3.6-5.2) mmol/L Chloride (98-107) mmol/L Carbon Dioxide (22-30) mmol/L Anion Gap (10-20) BUN (7-17) mg/dL Creatinine (0.7-1.2) mg/dL Est GFR ( Amer) Est GFR (Non-Af Amer) POC Glucose (mg/dL) 172 H (65-110) mg/dL Random Glucose (65-105) mg/dL Lactic Acid (0.7-2.1) mmol/L Calcium (8.6-10.4) mg/dl Phosphorus (2.5-4.5) mg/dL Magnesium (1.6-2.3) mg/dL Total Bilirubin (0.2-1.3) mg/dL AST (14-36) U/L ALT (9-52) U/L Alkaline Phosphatase (38-126) U/L Total Protein (6.3-8.3) g/dL Albumin (3.5-5.0) g/dL Globulin (2.2-3.9) gm/dL Albumin/Globulin Ratio (1.0-2.1) Procalcitonin (0.19-0.49) NG/ML Free T4 (0.78-2.19) ng/dL Total T3 (1.49-2.60) nmol/L TSH 3rd Generation (0.46-4.68) mIU/L Arterial Blood Potassium (3.6-5.2) mmol/L Vancomycin Trough (5.0-10.0) ug/mL 07/20/18 07/20/18 07/20/18 Range/Units 01:15 01:13 00:10 WBC (4.8-10.8) K/uL RBC (3.80-5.20) Mil/uL Hgb (11.0-16.0) g/dL Hct (34.0-47.0) % MCV (81.0-99.0) fL MCH (27.0-31.0) pg MCHC (33.0-37.0) g/dL RDW (11.5-14.5) % Plt Count (130-400) K/uL MPV (7.2-11.7) fL Neut % (Auto) (50.0-75.0) % Lymph % (Auto) (20.0-40.0) % Liberty % (Auto) (0.0-10.0) % Eos % (Auto) (0.0-4.0) % Baso % (Auto) (0.0-2.0) % Neut # (Auto) (1.8-7.0) K/uL Lymph # (Auto) (1.0-4.3) K/uL [place] # (Auto) (0.0-0.8) K/uL Eos # (Auto) (0.0-0.7) K/uL Baso # (Auto) (0.0-0.2) K/uL Neutrophils % (Manual) (50-75) % Band Neutrophils % (0-2) % Lymphocytes % (Manual) (20-40) % Monocytes % (Manual) (0-10) % Eosinophils % (Manual) (0-4) % Platelet Estimate (NORMAL) Polychromasia Hypochromasia (manual) Anisocytosis (manual) PT (9.7-12.2) SECONDS INR APTT (21-34) SECONDS Puncture Site Rb pCO2 27 L (35-45) mm/Hg pO2 74 L (80-100) mm/Hg HCO3 30.6 H (21-28) mmol/L ABG pH 7.62 H* (7.35-7.45) ABG Total CO2 28.6 H (22-28) mmol/L ABG O2 Saturation 98.7 H (95-98) % ABG Base Excess 7.3 H (-2.0-3.0) mmol/L ABG Hemoglobin (11.7-17.4) g/dL ABG Carboxyhemoglobin (0.5-1.5) % POC ABG HHb (Measured) (0.0-5.0) % ABG Methemoglobin (0.0-3.0) % Kevon Test Na ABG Potassium 3.1 L (3.6-5.2) mmol/L A-a O2 Difference 249.0 mm/Hg Respiratory Index 3.4 Hgb O2 Saturation (95.0-98.0) % Glucose 123 H (65-105) mg/dl Lactate 1.0 (0.7-2.1) mmol/L Vent Mode Prvc Mechanical Rate 16 FiO2 50.0 % Tidal Volume 450 PEEP 5 Crit Value Called To Rohit costa/rn Crit Value Called By Silvano telles/rt Crit Value Read Back Y Blood Gas Notified Time 125 Sodium 145.0 145 (132-148) mmol/L Potassium 3.1 L (3.6-5.2) mmol/L Chloride 117.0 H 108 H (98-107) mmol/L Carbon Dioxide 30 (22-30) mmol/L Anion Gap 9 L (10-20) BUN 31 H (7-17) mg/dL Creatinine 1.1 (0.7-1.2) mg/dL Est GFR ( Amer) > 60 Est GFR (Non-Af Amer) 52 POC Glucose (mg/dL) 130 H (65-110) mg/dL Random Glucose 137 H (65-105) mg/dL Lactic Acid (0.7-2.1) mmol/L Calcium 8.0 L (8.6-10.4) mg/dl Phosphorus 2.4 L (2.5-4.5) mg/dL Magnesium 1.7 (1.6-2.3) mg/dL Total Bilirubin 0.8 (0.2-1.3) mg/dL AST 28 (14-36) U/L ALT 40 (9-52) U/L Alkaline Phosphatase 105 (38-126) U/L Total Protein 4.7 L (6.3-8.3) g/dL Albumin 2.2 L (3.5-5.0) g/dL Globulin 2.5 (2.2-3.9) gm/dL Albumin/Globulin Ratio 0.9 L (1.0-2.1) Procalcitonin (0.19-0.49) NG/ML Free T4 (0.78-2.19) ng/dL Total T3 (1.49-2.60) nmol/L TSH 3rd Generation (0.46-4.68) mIU/L Arterial Blood Potassium 3.1 L (3.6-5.2) mmol/L Vancomycin Trough (5.0-10.0) ug/mL 07/19/18 07/19/18 07/19/18 Range/Units 23:48 23:47 18:01 WBC (4.8-10.8) K/uL RBC (3.80-5.20) Mil/uL Hgb (11.0-16.0) g/dL Hct (34.0-47.0) % MCV (81.0-99.0) fL MCH (27.0-31.0) pg MCHC (33.0-37.0) g/dL RDW (11.5-14.5) % Plt Count (130-400) K/uL MPV (7.2-11.7) fL Neut % (Auto) (50.0-75.0) % Lymph % (Auto) (20.0-40.0) % [place] % (Auto) (0.0-10.0) % Eos % (Auto) (0.0-4.0) % Baso % (Auto) (0.0-2.0) % Neut # (Auto) (1.8-7.0) K/uL Lymph # (Auto) (1.0-4.3) K/uL [place] # (Auto) (0.0-0.8) K/uL Eos # (Auto) (0.0-0.7) K/uL Baso # (Auto) (0.0-0.2) K/uL Neutrophils % (Manual) (50-75) % Band Neutrophils % (0-2) % Lymphocytes % (Manual) (20-40) % Monocytes % (Manual) (0-10) % Eosinophils % (Manual) (0-4) % Platelet Estimate (NORMAL) Polychromasia Hypochromasia (manual) Anisocytosis (manual) PT (9.7-12.2) SECONDS INR APTT (21-34) SECONDS Puncture Site pCO2 (35-45) mm/Hg pO2 (80-100) mm/Hg HCO3 (21-28) mmol/L ABG pH (7.35-7.45) ABG Total CO2 (22-28) mmol/L ABG O2 Saturation (95-98) % ABG Base Excess (-2.0-3.0) mmol/L ABG Hemoglobin (11.7-17.4) g/dL ABG Carboxyhemoglobin (0.5-1.5) % POC ABG HHb (Measured) (0.0-5.0) % ABG Methemoglobin (0.0-3.0) % Kevon Test ABG Potassium (3.6-5.2) mmol/L A-a O2 Difference mm/Hg Respiratory Index Hgb O2 Saturation (95.0-98.0) % Glucose (65-105) mg/dl Lactate (0.7-2.1) mmol/L Vent Mode Mechanical Rate FiO2 % Tidal Volume PEEP Crit Value Called To Crit Value Called By Crit Value Read Back Blood Gas Notified Time Sodium (132-148) mmol/L Potassium (3.6-5.2) mmol/L Chloride (98-107) mmol/L Carbon Dioxide (22-30) mmol/L Anion Gap (10-20) BUN (7-17) mg/dL Creatinine (0.7-1.2) mg/dL Est GFR ( Amer) Est GFR (Non-Af Amer) POC Glucose (mg/dL) 53 L 56 L 106 (65-110) mg/dL Random Glucose (65-105) mg/dL Lactic Acid (0.7-2.1) mmol/L Calcium (8.6-10.4) mg/dl Phosphorus (2.5-4.5) mg/dL Magnesium (1.6-2.3) mg/dL Total Bilirubin (0.2-1.3) mg/dL AST (14-36) U/L ALT (9-52) U/L Alkaline Phosphatase (38-126) U/L Total Protein (6.3-8.3) g/dL Albumin (3.5-5.0) g/dL Globulin (2.2-3.9) gm/dL Albumin/Globulin Ratio (1.0-2.1) Procalcitonin (0.19-0.49) NG/ML Free T4 (0.78-2.19) ng/dL Total T3 (1.49-2.60) nmol/L TSH 3rd Generation (0.46-4.68) mIU/L Arterial Blood Potassium (3.6-5.2) mmol/L Vancomycin Trough (5.0-10.0) ug/mL 07/19/18 Range/Units 11:38 WBC (4.8-10.8) K/uL RBC (3.80-5.20) Mil/uL Hgb (11.0-16.0) g/dL Hct (34.0-47.0) % MCV (81.0-99.0) fL MCH (27.0-31.0) pg MCHC (33.0-37.0) g/dL RDW (11.5-14.5) % Plt Count (130-400) K/uL MPV (7.2-11.7) fL Neut % (Auto) (50.0-75.0) % Lymph % (Auto) (20.0-40.0) % [place] % (Auto) (0.0-10.0) % Eos % (Auto) (0.0-4.0) % Baso % (Auto) (0.0-2.0) % Neut # (Auto) (1.8-7.0) K/uL Lymph # (Auto) (1.0-4.3) K/uL [place] # (Auto) (0.0-0.8) K/uL Eos # (Auto) (0.0-0.7) K/uL Baso # (Auto) (0.0-0.2) K/uL Neutrophils % (Manual) (50-75) % Band Neutrophils % (0-2) % Lymphocytes % (Manual) (20-40) % Monocytes % (Manual) (0-10) % Eosinophils % (Manual) (0-4) % Platelet Estimate (NORMAL) Polychromasia Hypochromasia (manual) Anisocytosis (manual) PT (9.7-12.2) SECONDS INR APTT (21-34) SECONDS Puncture Site pCO2 (35-45) mm/Hg pO2 (80-100) mm/Hg HCO3 (21-28) mmol/L ABG pH (7.35-7.45) ABG Total CO2 (22-28) mmol/L ABG O2 Saturation (95-98) % ABG Base Excess (-2.0-3.0) mmol/L ABG Hemoglobin (11.7-17.4) g/dL ABG Carboxyhemoglobin (0.5-1.5) % POC ABG HHb (Measured) (0.0-5.0) % ABG Methemoglobin (0.0-3.0) % Kevon Test ABG Potassium (3.6-5.2) mmol/L A-a O2 Difference mm/Hg Respiratory Index Hgb O2 Saturation (95.0-98.0) % Glucose (65-105) mg/dl Lactate (0.7-2.1) mmol/L Vent Mode Mechanical Rate FiO2 % Tidal Volume PEEP Crit Value Called To Crit Value Called By Crit Value Read Back Blood Gas Notified Time Sodium (132-148) mmol/L Potassium (3.6-5.2) mmol/L Chloride (98-107) mmol/L Carbon Dioxide (22-30) mmol/L Anion Gap (10-20) BUN (7-17) mg/dL Creatinine (0.7-1.2) mg/dL Est GFR ( Amer) Est GFR (Non-Af Amer) POC Glucose (mg/dL) 142 H (65-110) mg/dL Random Glucose (65-105) mg/dL Lactic Acid (0.7-2.1) mmol/L Calcium (8.6-10.4) mg/dl Phosphorus (2.5-4.5) mg/dL Magnesium (1.6-2.3) mg/dL Total Bilirubin (0.2-1.3) mg/dL AST (14-36) U/L ALT (9-52) U/L Alkaline Phosphatase (38-126) U/L Total Protein (6.3-8.3) g/dL Albumin (3.5-5.0) g/dL Globulin (2.2-3.9) gm/dL Albumin/Globulin Ratio (1.0-2.1) Procalcitonin (0.19-0.49) NG/ML Free T4 (0.78-2.19) ng/dL Total T3 (1.49-2.60) nmol/L TSH 3rd Generation (0.46-4.68) mIU/L Arterial Blood Potassium (3.6-5.2) mmol/L Vancomycin Trough (5.0-10.0) ug/mL Laboratory Results - last 24 hr 07/19/18 07/19/18 07/19/18 11:38 18:01 23:47 WBC RBC Hgb Hct MCV MCH MCHC RDW Plt Count MPV Neut % (Auto) Lymph % (Auto) [place] % (Auto) Eos % (Auto) Baso % (Auto) Neut # (Auto) Lymph # (Auto) [place] # (Auto) Eos # (Auto) Baso # (Auto) Neutrophils % (Manual) Band Neutrophils % Lymphocytes % (Manual) Monocytes % (Manual) Eosinophils % (Manual) Platelet Estimate Polychromasia Hypochromasia (manual) Anisocytosis (manual) PT INR APTT Puncture Site pCO2 pO2 HCO3 ABG pH ABG Total CO2 ABG O2 Saturation ABG Base Excess ABG Hemoglobin ABG Carboxyhemoglobin POC ABG HHb (Measured) ABG Methemoglobin Kevon Test ABG Potassium A-a O2 Difference Respiratory Index Hgb O2 Saturation Glucose Lactate Vent Mode Mechanical Rate FiO2 Tidal Volume PEEP Crit Value Called To Crit Value Called By Crit Value Read Back Blood Gas Notified Time Sodium Potassium Chloride Carbon Dioxide Anion Gap BUN Creatinine Est GFR ( Amer) Est GFR (Non-Af Amer) POC Glucose (mg/dL) 142 H 106 56 L Random Glucose Lactic Acid Calcium Phosphorus Magnesium Total Bilirubin AST ALT Alkaline Phosphatase Total Protein Albumin Globulin Albumin/Globulin Ratio Procalcitonin Free T4 Total T3 TSH 3rd Generation Arterial Blood Potassium Vancomycin Trough 07/19/18 07/20/18 07/20/18 23:48 00:10 01:13 WBC RBC Hgb Hct MCV MCH MCHC RDW Plt Count MPV Neut % (Auto) Lymph % (Auto) [place] % (Auto) Eos % (Auto) Baso % (Auto) Neut # (Auto) Lymph # (Auto) [place] # (Auto) Eos # (Auto) Baso # (Auto) Neutrophils % (Manual) Band Neutrophils % Lymphocytes % (Manual) Monocytes % (Manual) Eosinophils % (Manual) Platelet Estimate Polychromasia Hypochromasia (manual) Anisocytosis (manual) PT INR APTT Puncture Site pCO2 pO2 HCO3 ABG pH ABG Total CO2 ABG O2 Saturation ABG Base Excess ABG Hemoglobin ABG Carboxyhemoglobin POC ABG HHb (Measured) ABG Methemoglobin Kevon Test ABG Potassium A-a O2 Difference Respiratory Index Hgb O2 Saturation Glucose Lactate Vent Mode Mechanical Rate FiO2 Tidal Volume PEEP Crit Value Called To Crit Value Called By Crit Value Read Back Blood Gas Notified Time Sodium 145 Potassium 3.1 L Chloride 108 H Carbon Dioxide 30 Anion Gap 9 L BUN 31 H Creatinine 1.1 Est GFR ( Amer) > 60 Est GFR (Non-Af Amer) 52 POC Glucose (mg/dL) 53 L 130 H Random Glucose 137 H Lactic Acid Calcium 8.0 L Phosphorus 2.4 L Magnesium 1.7 Total Bilirubin 0.8 AST 28 ALT 40 Alkaline Phosphatase 105 Total Protein 4.7 L Albumin 2.2 L Globulin 2.5 Albumin/Globulin Ratio 0.9 L Procalcitonin Free T4 Total T3 TSH 3rd Generation Arterial Blood Potassium Vancomycin Trough 07/20/18 07/20/18 07/20/18 01:15 04:30 06:07 WBC RBC Hgb Hct MCV MCH MCHC RDW Plt Count MPV Neut % (Auto) Lymph % (Auto) [place] % (Auto) Eos % (Auto) Baso % (Auto) Neut # (Auto) Lymph # (Auto) [place] # (Auto) Eos # (Auto) Baso # (Auto) Neutrophils % (Manual) Band Neutrophils % Lymphocytes % (Manual) Monocytes % (Manual) Eosinophils % (Manual) Platelet Estimate Polychromasia Hypochromasia (manual) Anisocytosis (manual) PT INR APTT Puncture Site Rb Rb pCO2 27 L 43 pO2 74 L 109 H HCO3 30.6 H 26.2 ABG pH 7.62 H* 7.40 ABG Total CO2 28.6 H 27.9 ABG O2 Saturation 98.7 H 98.9 H ABG Base Excess 7.3 H 1.6 ABG Hemoglobin 9.5 L ABG Carboxyhemoglobin 2.1 H POC ABG HHb (Measured) 1.1 ABG Methemoglobin 0.6 Kevon Test Na Na ABG Potassium 3.1 L A-a O2 Difference 249.0 194.0 Respiratory Index 3.4 1.8 Hgb O2 Saturation 96.2 Glucose 123 H Lactate 1.0 Vent Mode Prvc Prvc Mechanical Rate 16 10 FiO2 50.0 50.0 Tidal Volume 450 450 PEEP 5 7 Crit Value Called To Rohit costa/rn Crit Value Called By Silvano telles/rt Crit Value Read Back Y Blood Gas Notified Time 125 Sodium 145.0 Potassium Chloride 117.0 H Carbon Dioxide Anion Gap BUN Creatinine Est GFR ( Amer) Est GFR (Non-Af Amer) POC Glucose (mg/dL) 172 H Random Glucose Lactic Acid Calcium Phosphorus Magnesium Total Bilirubin AST ALT Alkaline Phosphatase Total Protein Albumin Globulin Albumin/Globulin Ratio Procalcitonin Free T4 Total T3 TSH 3rd Generation Arterial Blood Potassium 3.1 L Vancomycin Trough 07/20/18 07/20/18 07/20/18 06:22 06:22 11:18 WBC 17.0 H D RBC 3.09 L Hgb 9.1 L Hct 28.1 L MCV 91.0 MCH 29.5 MCHC 32.4 L RDW 15.8 H Plt Count 202 MPV 10.5 Neut % (Auto) 83.8 H Lymph % (Auto) 8.5 L Liberty % (Auto) 6.0 Eos % (Auto) 1.4 Baso % (Auto) 0.3 Neut # (Auto) 14.2 H Lymph # (Auto) 1.4 Liberty # (Auto) 1.0 H Eos # (Auto) 0.2 Baso # (Auto) 0.0 Neutrophils % (Manual) 73 Band Neutrophils % 7 H Lymphocytes % (Manual) 13 L Monocytes % (Manual) 6 Eosinophils % (Manual) 1 Platelet Estimate Normal Polychromasia Slight Hypochromasia (manual) Slight Anisocytosis (manual) Slight PT INR APTT Puncture Site pCO2 pO2 HCO3 ABG pH ABG Total CO2 ABG O2 Saturation ABG Base Excess ABG Hemoglobin ABG Carboxyhemoglobin POC ABG HHb (Measured) ABG Methemoglobin Kevon Test ABG Potassium A-a O2 Difference Respiratory Index Hgb O2 Saturation Glucose Lactate Vent Mode Mechanical Rate FiO2 Tidal Volume PEEP Crit Value Called To Crit Value Called By Crit Value Read Back Blood Gas Notified Time Sodium 143 Potassium 5.5 H Chloride 108 H Carbon Dioxide 30 Anion Gap 10 BUN 29 H Creatinine 1.2 Est GFR ( Amer) 57 Est GFR (Non-Af Amer) 47 POC Glucose (mg/dL) Random Glucose 170 H Lactic Acid Calcium 8.4 L Phosphorus 3.2 Magnesium 2.5 H Total Bilirubin 1.2 AST 41 H D ALT 54 H D Alkaline Phosphatase 121 Total Protein 5.2 L Albumin 2.4 L Globulin 2.8 Albumin/Globulin Ratio 0.9 L Procalcitonin Free T4 Total T3 TSH 3rd Generation < 0.02 L Arterial Blood Potassium Vancomycin Trough 07/20/18 07/20/18 07/20/18 11:18 11:18 11:18 WBC RBC Hgb Hct MCV MCH MCHC RDW Plt Count MPV Neut % (Auto) Lymph % (Auto) [place] % (Auto) Eos % (Auto) Baso % (Auto) Neut # (Auto) Lymph # (Auto) [place] # (Auto) Eos # (Auto) Baso # (Auto) Neutrophils % (Manual) Band Neutrophils % Lymphocytes % (Manual) Monocytes % (Manual) Eosinophils % (Manual) Platelet Estimate Polychromasia Hypochromasia (manual) Anisocytosis (manual) PT 17.2 H INR 1.6 APTT 32 Puncture Site pCO2 pO2 HCO3 ABG pH ABG Total CO2 ABG O2 Saturation ABG Base Excess ABG Hemoglobin ABG Carboxyhemoglobin POC ABG HHb (Measured) ABG Methemoglobin Kevon Test ABG Potassium A-a O2 Difference Respiratory Index Hgb O2 Saturation Glucose Lactate Vent Mode Mechanical Rate FiO2 Tidal Volume PEEP Crit Value Called To Crit Value Called By Crit Value Read Back Blood Gas Notified Time Sodium Potassium Chloride Carbon Dioxide Anion Gap BUN Creatinine Est GFR ( Amer) Est GFR (Non-Af Amer) POC Glucose (mg/dL) Random Glucose Lactic Acid Calcium Phosphorus Magnesium Total Bilirubin AST ALT Alkaline Phosphatase Total Protein Albumin Globulin Albumin/Globulin Ratio Procalcitonin 3.81 H Free T4 Total T3 TSH 3rd Generation Arterial Blood Potassium Vancomycin Trough 24.0 H 07/20/18 07/20/18 07/20/18 11:19 11:19 11:39 WBC 14.4 H RBC 2.89 L Hgb 8.6 L Hct 26.0 L MCV 90.0 MCH 29.9 MCHC 33.2 RDW 15.7 H Plt Count 216 MPV 9.7 Neut % (Auto) 83.3 H Lymph % (Auto) 9.4 L [place] % (Auto) 5.2 Eos % (Auto) 1.5 Baso % (Auto) 0.6 Neut # (Auto) 12.0 H Lymph # (Auto) 1.4 [place] # (Auto) 0.8 Eos # (Auto) 0.2 Baso # (Auto) 0.1 Neutrophils % (Manual) 79 H Band Neutrophils % 3 H Lymphocytes % (Manual) 12 L Monocytes % (Manual) 4 Eosinophils % (Manual) 2 Platelet Estimate Normal Polychromasia Slight Hypochromasia (manual) Slight Anisocytosis (manual) Slight PT INR APTT Puncture Site pCO2 pO2 HCO3 ABG pH ABG Total CO2 ABG O2 Saturation ABG Base Excess ABG Hemoglobin ABG Carboxyhemoglobin POC ABG HHb (Measured) ABG Methemoglobin Kevon Test ABG Potassium A-a O2 Difference Respiratory Index Hgb O2 Saturation Glucose Lactate Vent Mode Mechanical Rate FiO2 Tidal Volume PEEP Crit Value Called To Crit Value Called By Crit Value Read Back Blood Gas Notified Time Sodium Potassium Chloride Carbon Dioxide Anion Gap BUN Creatinine Est GFR ( Amer) Est GFR (Non-Af Amer) POC Glucose (mg/dL) Random Glucose Lactic Acid 0.9 Calcium Phosphorus Magnesium Total Bilirubin AST ALT Alkaline Phosphatase Total Protein Albumin Globulin Albumin/Globulin Ratio Procalcitonin Free T4 2.35 H Total T3 TSH 3rd Generation Arterial Blood Potassium Vancomycin Trough 07/20/18 12:27 WBC RBC Hgb Hct MCV MCH MCHC RDW Plt Count MPV Neut % (Auto) Lymph % (Auto) [place] % (Auto) Eos % (Auto) Baso % (Auto) Neut # (Auto) Lymph # (Auto) [place] # (Auto) Eos # (Auto) Baso # (Auto) Neutrophils % (Manual) Band Neutrophils % Lymphocytes % (Manual) Monocytes % (Manual) Eosinophils % (Manual) Platelet Estimate Polychromasia Hypochromasia (manual) Anisocytosis (manual) PT INR APTT Puncture Site pCO2 pO2 HCO3 ABG pH ABG Total CO2 ABG O2 Saturation ABG Base Excess ABG Hemoglobin ABG Carboxyhemoglobin POC ABG HHb (Measured) ABG Methemoglobin Kevon Test ABG Potassium A-a O2 Difference Respiratory Index Hgb O2 Saturation Glucose Lactate Vent Mode Mechanical Rate FiO2 Tidal Volume PEEP Crit Value Called To Crit Value Called By Crit Value Read Back Blood Gas Notified Time Sodium 141 Potassium 4.3 Chloride 107 Carbon Dioxide 27 Anion Gap 11 BUN 27 H Creatinine 1.1 Est GFR ( Amer) > 60 Est GFR (Non-Af Amer) 52 POC Glucose (mg/dL) Random Glucose 177 H Lactic Acid Calcium 8.1 L Phosphorus 2.9 Magnesium 2.2 Total Bilirubin 0.8 AST 28 ALT 42 Alkaline Phosphatase 100 Total Protein 4.9 L Albumin 2.1 L Globulin 2.7 Albumin/Globulin Ratio 0.8 L Procalcitonin Free T4 Total T3 0.857 L TSH 3rd Generation Arterial Blood Potassium Vancomycin Trough EKG/Cardiology Studies: Cardiology / EKG Studies 07/20/18 01:09 ELECTROCARDIOGRAM Stat Comment: Mode Of Transportation: PORTABLE Reason For Exam: change in rythm PERFORMING PHYSICIAN/PROVIDER:: Merlin Oshea Assessment/Plan - Assessment and Plan (Free Text) Plan: Patient admitted to ICU for diarrhea and sepsis with prolonged ICU course with intubation and cardic arrest -Cardiac arrest: etiology unknown, currently on IV heparin 2nd low EF and clot in left aventricle, cardiology input regarding asa/palvix, and av aixa sandra -ANoxic brain injury: avoid all sedation to evaluate underlying mental condition -HYpoxic respiratory failure: continue ventilation to keep spo2 >92 and pH b/w 7.35-7.45 -Hyperthyroidism:slowly resolving -severe metabolic and respiratory alkalosis: avoid lasix, replace electrolytes and place patient on CPAP -DVT ppx IV heparin -PUD ppx protonix -prognosis poor as patient's mental status very poor (titrate off precedex) -cc time 32 minutes - Date & Time Date: 07/15/18 Time: 20:00
--- NOTE | 2018-07-15 12:08 | RAD ---
HISTORY: acute hypoxia/tachy, r/o aspiration COMPARISON: Chest x-ray performed 07/15/18 TECHNIQUE: Chest, one view. FINDINGS: Endotracheal tube terminates approximately 3.6 cm above the key. Right-sided central venous catheter extends the cavoatrial junction. Nasogastric tube extends beyond the hemidiaphragm towards expected location of the stomach. LUNGS: Moderate pulmonary venous congestion. Biapical pleural thickening/fluid. PLEURA: Small right-sided pleural effusion. No definite pneumothorax . CARDIOVASCULAR: The cardiomediastinal silhouette appears within normal limits of size. OSSEOUS STRUCTURES: No acute osseous abnormality identified. VISUALIZED UPPER ABDOMEN: Unremarkable. OTHER FINDINGS: None. IMPRESSION: Endotracheal tube terminates approximately 3.6 cm above the key. Right-sided central venous catheter extends the cavoatrial junction. Nasogastric tube extends beyond the hemidiaphragm towards expected location of the stomach. Moderate pulmonary venous congestion. Small right-sided pleural effusion. Biapical pleural thickening/fluid.
--- NOTE | 2018-07-15 15:35 | CP.PCM.PN ---
Subjective - Date & Time of Evaluation Date of Evaluation: 07/15/18 Time of Evaluation: 15:33 - Subjective Subjective: Nephrology Consultation Note Assessment: critical Acute Kidney Injury (N17.9) likely due to ATN, r/o GN (so far w/up emery) septic shock, acute respi failure, UTI/aspiration pneumonitis and pulm edemaf Diabetic chronic Kidney Disease (E11.22) Hypertensive Chronic Kidney Disease (I12.9) Chronic Kidney Disease (N18.3) Stage 3 with 740 mg proteinuria (R80.9) likely due to DM/HTN, baseline cr 1.2 Anemia (D64.9), Hyperphosphatemia (E83.39), Hypocalcemia ? hyperthyroidism. V tach and cardiac arrest hypokalemia, hypomag, hypophos apical thrombus with sys CHF LVEf 40% Plan no further need of dialysis. dialysis catheter out lytes ok Monitor Input/Output, continue weekly Vit D supplement lytes as needed Check GN work up as LIA, Anti dsDNA, ANCA (MPO and VT-3), Anti GBM antibody pending Physical Examination: General Appearance: in no acute respiratory distress, ill appearing Vitals reviewed and noted as below Head; Atraumatic, normocephalic ENT: orally intubated Neck; supple no thyromegaly or bruit Lungs: Normal respiratory rate/effort. Breath sounds bilateral with basal rales Heart: Increasedl rate. s1s2 normal. No rub or gallop. Extremities: no pedal edema. No varicose veins Neurological: Patient is sedated Skin: Warm and dry. Normal turgor. No rash. Abdomen: Abdomen is soft. Bowel sounds +. There is no abdominal tenderness, no guarding/rigidity no organomegaly Psych: unable MSK: no joint tenderness or swelling Objective - Vital Signs/Intake and Output Vital Signs (last 24 hours): Temp Pulse Resp BP Pulse Ox 94.6 F L 57 L 12 106/61 100 07/15/18 09:45 07/15/18 08:00 07/15/18 08:00 07/15/18 08:00 07/15/18 09:45 Intake and Output: 07/15/18 07/15/18 06:59 18:59 Intake Total 1704.1 221.6 Output Total 765 200 Balance 939.1 21.6 - Medications Medications: Current Medications Acetaminophen (Tylenol 325mg Tab) 650 mg PO Q6H PRN PRN Reason: Pain, moderate (4-7) Last Admin: 07/13/18 11:00 Dose: 650 mg Acetaminophen (Tylenol 325mg Tab) 650 mg PO Q6 PRN PRN Reason: Fever >100.4 F Last Admin: 07/15/18 04:35 Dose: 650 mg Albuterol/Ipratropium (Duoneb 3 Mg/0.5 Mg (3 Ml) Ud) 3 ml INH RQ6 [facility] Last Admin: 07/15/18 08:28 Dose: 3 ml Aspirin (Ecotrin) 81 mg PO DAILY [facility] Last Admin: 07/15/18 10:18 Dose: 81 mg Clopidogrel Bisulfate (Plavix) 75 mg PO DAILY [facility] Last Admin: 07/15/18 10:18 Dose: 75 mg Ergocalciferol (Drisdol 50,000 Intl Units Cap) 1 cap PO Q7D [facility] Last Admin: 07/11/18 14:50 Dose: 1 cap Heparin Sodium/Sodium Chloride (Heparin 21880 Units/250ml 1/2 Normal Saline) 25,000 units in 250 mls @ 10.207 mls/hr IV .Q24H PRN; Protocol PRN Reason: PROTOCOL Last Admin: 07/15/18 05:10 Dose: 9 units/kg/hr, 5.103 mls/hr Norepinephrine Bitartrate 4 mg (/ Sodium Chloride) 254 mls @ 19.05 mls/hr IV .Q 13H20M PRN; Protocol PRN Reason: TITRATE PER MD ORDER Last Titration: 07/15/18 03:00 Dose: 2 mcg/min, 7.62 mls/hr Vancomycin HCl 1 gm/ Sodium (Chloride) 250 mls @ 166.7 mls/hr IVPB Q24H [facility]; Protocol Last Admin: 07/14/18 18:36 Dose: 166.7 mls/hr Ceftriaxone Sodium 2 gm/ (Sodium Chloride) 100 mls @ 100 mls/hr IVPB Q12H [facility]; Protocol Last Admin: 07/15/18 04:35 Dose: 100 mls/hr Insulin Aspart (Novolog) 0 unit SC Q6 [facility]; Protocol Last Admin: 07/15/18 13:24 Dose: 4 units Insulin Glargine (Lantus) 10 unit SC DAILY [facility] Last Admin: 07/15/18 10:18 Dose: 10 units Lactobacillus Acidophilus (Bacid Acidophilus) 1 cap PO Q12H [facility] Last Admin: 07/15/18 10:18 Dose: 1 cap Methimazole (Tapazole) 10 mg PO TID [facility] Last Admin: 07/14/18 17:33 Dose: 10 mg Methylprednisolone (Solu-Medrol) 20 mg IVP DAILY [facility] Last Admin: 07/15/18 10:19 Dose: 20 mg Midodrine (Proamatine) 2.5 mg PO Q8H [facility] Last Admin: 07/15/18 10:18 Dose: 2.5 mg Ondansetron HCl (Zofran Inj) 4 mg IVP Q6H PRN PRN Reason: Nausea/Vomiting Last Admin: 07/08/18 13:06 Dose: 4 mg Pantoprazole Sodium (Protonix Susp) 40 mg PO BID [facility] Last Admin: 07/15/18 10:18 Dose: 40 mg Rosuvastatin Calcium (Crestor) 2.5 mg PO HS [facility] Last Admin: 07/14/18 21:20 Dose: 2.5 mg - Labs Labs: 07/15/18 06:36 07/15/18 06:36 PT 16.1 SECONDS (9.7-12.2) H D 07/13/18 06:30 INR 1.5 D 07/13/18 06:30 APTT 42 SECONDS (21-34) H D 07/15/18 06:36
[2018-07-15] MEDS: Rosuvastatin Calcium 2.5 mg Tab PO SCH (21:35)
[2018-07-16] MEDS: (Novolog) Insulin Aspart, Recombinant 100 u/ml 10 ml vial SC SCH ×5 (00:08→23:56)
[2018-07-16] MEDS: Albuterol-Ipratrop 3 mg / 0.5 (3 ml) UD INH SCH ×4 (02:45→19:35)
[2018-07-16] MEDS: Propranolol 1 mg/mL Inj IVP SCH (05:00)
[2018-07-16] MEDS: Dexmedetomidine Hydrochloride 200 MCG in Sodium Chloride 0.9% 48 ML IV PRN (05:42)
[2018-07-16 06:06] LABS: ARTERIAL BLOOD GAS HCO3 22.3 mmol/L (21-28); ARTERIAL BLOOD GAS HEMOGLOBIN 10.2 g/dL (11.7-17.4); ARTERIAL BLOOD GAS O2 SAT 94.1 % (95-98); ARTERIAL BLOOD GAS PCO2 39 mm/Hg (35-45); ARTERIAL BLOOD GAS PH 7.36 (7.35-7.45); ARTERIAL BLOOD GAS PO2 61 mm/Hg (80-100); ARTERIAL BLOOD GAS TCO2 23.2 mmol/L (22-28)
[2018-07-16 06:18] LABS: BASO % 0.2 % (0.0-2.0); HEMOGLOBIN 9.9 g/dL (11.0-16.0); LYMPH # 0.7 K/uL (1.0-4.3); LYMPH % 8.6 % (20.0-40.0); MEAN CELL VOLUME 91.2 fL (81.0-99.0); MEAN CORPUSCULAR HEMOGLOBIN 30.3 pg (27.0-31.0); MEAN CORPUSCULAR HGB CONC 33.2 g/dL (33.0-37.0); MONO # 0.7 K/uL (0.0-0.8); MONO % 8.5 % (0.0-10.0); NEUT # 6.9 K/uL (1.8-7.0); NEUT % 82.7 % (50.0-75.0); NRBC % 0.2 % (0.0-2.0); PLATELET COUNT 126 K/uL (130-400); RBC 3.26 Mil/uL (3.80-5.20); RED CELL DISTRIBUTION WIDTH 15.6 % (11.5-14.5); WHITE BLOOD COUNT 8.3 K/uL (4.8-10.8)
[2018-07-16 06:21] LABS: INR 1.2; PROTHROMBIN TIME 13.6 SECONDS (9.7-12.2)
[2018-07-16 06:43] LABS: ALB/GLOB RATIO 0.9 (1.0-2.1); ALBUMIN 2.3 g/dL (3.5-5.0); ALT/SGPT 68 U/L (9-52); AST/SGOT 31 U/L (14-36); BLOOD UREA NITROGEN 37 mg/dL (7-17); CALCIUM 7.4 mg/dl (8.6-10.4); GFR NON-AFRICAN AMERICAN 58
--- NOTE | 2018-07-16 08:30 | CP.PCM.PN ---
Subjective - Date & Time of Evaluation Date of Evaluation: 07/16/18 Time of Evaluation: 08:00 - Subjective Subjective: Medical Attending Note: Patient seen at bedside. Patient attempted CPAP trial yesterday but failed. Note when speaking with patient try in [place]elle, she will follow directions as opposed to Slovak. She moves upper and lower extremities on his own. Per nursing, patient is having diarrhea. Objective - Vital Signs/Intake and Output Vital Signs (last 24 hours): Temp Pulse Resp BP Pulse Ox 99.3 F 96 H 25 H 141/85 96 07/16/18 06:00 07/16/18 07:00 07/16/18 07:00 07/16/18 06:28 07/16/18 07:00 Intake and Output: 07/16/18 07/16/18 06:59 18:59 Intake Total 1341.9 142.9 Output Total 750 Balance 591.9 142.9 - Medications Medications: Current Medications Acetaminophen (Tylenol 325mg Tab) 650 mg PO Q6H PRN PRN Reason: Pain, moderate (4-7) Last Admin: 07/13/18 11:00 Dose: 650 mg Acetaminophen (Tylenol 325mg Tab) 650 mg PO Q6 PRN PRN Reason: Fever >100.4 F Last Admin: 07/15/18 04:35 Dose: 650 mg Albuterol/Ipratropium (Duoneb 3 Mg/0.5 Mg (3 Ml) Ud) 3 ml INH RQ6 [facility] Last Admin: 07/16/18 08:11 Dose: 3 ml Aspirin (Ecotrin) 81 mg PO DAILY [facility] Last Admin: 07/15/18 10:18 Dose: 81 mg Clopidogrel Bisulfate (Plavix) 75 mg PO DAILY [facility] Last Admin: 07/15/18 10:18 Dose: 75 mg Ergocalciferol (Drisdol 50,000 Intl Units Cap) 1 cap PO Q7D [facility] Last Admin: 07/11/18 14:50 Dose: 1 cap Heparin Sodium/Sodium Chloride (Heparin 30102 Units/250ml 1/2 Normal Saline) 25,000 units in 250 mls @ 10.207 mls/hr IV .Q24H PRN; Protocol PRN Reason: PROTOCOL Last Titration: 07/16/18 08:10 Dose: 11 units/kg/hr, 6.237 mls/hr Norepinephrine Bitartrate 4 mg (/ Sodium Chloride) 254 mls @ 19.05 mls/hr IV .[id number] PRN; Protocol PRN Reason: TITRATE PER MD ORDER Last Titration: 07/15/18 03:00 Dose: 2 mcg/min, 7.62 mls/hr Vancomycin HCl 1 gm/ Sodium (Chloride) 250 mls @ 166.7 mls/hr IVPB Q24H [facility]; Protocol Last Admin: 07/15/18 19:22 Dose: 166.7 mls/hr Ceftriaxone Sodium 2 gm/ (Sodium Chloride) 100 mls @ 100 mls/hr IVPB Q12H [facility]; Protocol Last Admin: 07/16/18 05:08 Dose: 100 mls/hr Dexmedetomidine HCl 200 mcg/ (Sodium Chloride) 50 mls @ 2.91 mls/hr IV TITR PRN; Protocol PRN Reason: Sedation Last Admin: 07/16/18 05:42 Dose: 0.2 mcg/kg/hr, 2.91 mls/hr Insulin Aspart (Novolog) 0 unit SC Q6 [facility]; Protocol Last Admin: 07/16/18 06:32 Dose: 6 units Insulin Glargine (Lantus) 10 unit SC DAILY [facility] Last Admin: 07/15/18 10:18 Dose: 10 units Lactobacillus Acidophilus (Bacid Acidophilus) 1 cap PO Q12H [facility] Last Admin: 07/15/18 20:12 Dose: 1 cap Methimazole (Tapazole) 10 mg PO TID [facility] Last Admin: 07/15/18 18:33 Dose: 10 mg Methylprednisolone (Solu-Medrol) 20 mg IVP DAILY [facility] Last Admin: 07/15/18 10:19 Dose: 20 mg Midodrine (Proamatine) 2.5 mg PO Q8H [facility] Last Admin: 07/16/18 01:20 Dose: 2.5 mg Ondansetron HCl (Zofran Inj) 4 mg IVP Q6H PRN PRN Reason: Nausea/Vomiting Last Admin: 07/08/18 13:06 Dose: 4 mg Pantoprazole Sodium (Protonix Susp) 40 mg PO BID [facility] Last Admin: 07/15/18 18:33 Dose: 40 mg Propranolol HCl (Propranolol Inj) 1 mg IVP Q6H [facility] Last Admin: 07/16/18 05:00 Dose: 1 mg Rosuvastatin Calcium (Crestor) 2.5 mg PO HS [facility] Last Admin: 07/15/18 21:35 Dose: 2.5 mg - Labs Labs: 07/16/18 06:10 07/16/18 06:10 PT 13.6 SECONDS (9.7-12.2) H 07/16/18 06:10 INR 1.2 07/16/18 06:10 APTT 40 SECONDS (21-34) H 07/16/18 06:10 - Constitutional Appears: Chronically Ill - Head Exam Head Exam: NORMAL INSPECTION Additional comments: intubated on vent subclavian over right side of chest prevalon boots b/l - Eye Exam Eye Exam: EOMI, PERRL Pupil Exam: PERRL - ENT Exam ENT Exam: Mucous Membranes Moist - Respiratory Exam Respiratory Exam: Decreased Breath Sounds, Rales, Rhonchi, NORMAL BREATHING PATTERN - Cardiovascular Exam Cardiovascular Exam: REGULAR RHYTHM, +S1, +S2 - GI/Abdominal Exam GI & Abdominal Exam: Soft, Normal Bowel Sounds. absent: Distended, Firm, Guarding, Rigid, Tenderness, Rebound - Extremities Exam Extremities Exam: Pedal Edema (nonpitting b/l upper and lower edema). absent: Tenderness - Neurological Exam Neurological Exam: Awake - Psychiatric Exam Psychiatric exam: Normal Affect, Normal Mood - Skin Skin Exam: Intact, Normal Color, Warm. absent: Petechiae Assessment and Plan (1) Septic shock Status: Acute (2) Acute respiratory failure Status: Acute (3) Urinary tract infection Status: Acute (4) Acute renal failure Status: Acute (5) Aspiration pneumonia Status: Acute (6) Diabetes mellitus Status: Chronic (7) Ventricular arrhythmia Status: Acute (8) Hyperthyroidism Status: Acute (9) Anemia Status: Acute (10) Prophylactic measure Status: Acute Attending/Attestation - Attestation I have personally seen and examined this patient.: Yes I have fully participated in the care of the patient.: Yes I have reviewed all pertinent clinical information, including history, physical exam and plan: Yes Notes (Text): 1) Septic Shock Assessment/Plan * Infectious Disease (Dr. Brock) on case-->help appreciated * Tmax: 100.3 F (07/14/18) * Criteria: leukocytosis, tachycardia * Source: aspiration pneumonia and urinary tract infection * 07/07/18: Urine: E. Coli * 07/09/18: Urine: No growth * 07/07/18: blood culture: no growth after 5 days X2 * 07/09/18 Blood culture: no growth after 5 days X2 * 07/14/18: blood cultures: no growth for 24 hours * 07/14/18: sputum culture: pending * 07/14/18: Urine culture: no growth * MRSA not detected * Antibiotics changed in light of fever spike on 07/14/18 * Rocephin 2gm IVPB Q12H (active since 07/14/18) * Vancomycin 1 gram IVPB Q24H (active since 07/14/18) 2) Acute Respiratory Failure Pulmonary Edema Assessment/Plan * Intubated * Tapered down to Solumedrol 20mg IVP daily * Duonebs RQ6H PRN wheezing * Duonebs RQ6H * Sputum culture: yeast * MRSA screen: not detected * Sputum culture X2: yeast * 07/14/18: Sputum culture: pending 3) Ventricular Tachycardia Nonstemi Apical Thrombus Assessment/Plan * Code Blue 07/10: SVT==>VT required amiodarone, magnesium, one shock delivered * Cardiology Dr Francisco on case help appreciated * When patient is stabilized will need further cardiac workup * Echocardiogram (07/07/18): left ventricle systolic function is borderline, ejec tion fraction is 45-50%, no aortic regurgitation is present, mitral regurgitation is mild. Mild tricuspid regurgitation. mild pulmonary hypertension, mild pulmonic valvular regurgitation * Contrast echo: Large apical hypokinesis a large 30 x 20 mm soft tissue apical sessile mass suggestive of thrombus overall fraction 40%. Obtain a HUBERT or/consider stress card myopathy if coronary disease is excluded further findings per report * Amiodarone discontinued * Monitor electrolytes * Heparin drip * Switch from Cardizem==>propranolol 1mg IVP Q6H 4) Urinary Tract Infection Assessment/Plan * Infectious disease on board help appreciated * 07/07/18: Urine: E. Coli * 07/09/18: Urine: No growth * 07/14/18: Urine culture: pending 4) Aspiration Pneumonia Assessment/Plan * Mycoplasma negative * Legionella was negative * Influenza negative * HIV negative * Antibiotics changed in light of fever spike on 07/14/18 * Rocephin 2gm IVPB Q12H (active since 07/14/18) * Vancomycin 1 gram IVPB Q24H (active since 07/14/18) 5) Diabetes Assessment/Plan * a1c: 7.8 * hypoglycemic protocol * novolog unit subq * Lantus 10 units subcutaneous at bedtime 6) Acute on Chronic Renal Failure Assessment/Plan * Nephrology (Dr. Hyde) on board--> help appreciated * We'll continue diuresis * Patient will likely not need dialysis * renal function recovering 7) Hyperthyroidism? Low TSH, and Free T4 Thyroid Storm Assessment/Plan * Note Thyroid studies taken before amiodarone was given (please advised this is not amiodarone induced her levels were abnormal prior) * Patient does not have prior thyroid history * Endocrinology (Dr. Gayle) on board help appreciated * c/w apazole 10mg PO TID * propranolol 1mg IVQ6H * Monitor LFTs 8) Anemia Assessment/Plan * iron normal, TIBC low, iron sat normal, ferritin normal * stool occult blood negative * B12 normal * Folate Normal * Improved * patient is on heparin drip secondary to apical thrombus 9) Transminitis * related to sepsis and was on amiodarone but is off * Hepatitis serology negative * improving 10) Vitamin D deficiency Assessment plan * 50,000 international units once a week for at least 8-12 weeks started on July 11 11) Thrombocytopenia Assessment plan * related to HIT or sepsis? * patient has been on heparin drip * Fibrinogen elevated * pending HIT/RUSTY * (patient is on plavix/aspirin) * side effect of methiazole? * normalized 12) Prophylactic measure * Protonix 40mg PO BID * off Precedex drip * Propranolol 1mg IVP Q6H * Heparin drip * off 1 pressor since 2pm 07/15/18 * Patient is vital feeding which has helped to improved diarrhea since 07/12/18 * Subclavian line 07/14/18 Disposition: * per icu for weaning protocol * Neuro was consulted yesterday due to concern for anoxic brain injury; recommended for sedation vacation and repeat head CT. Both head CTs are negative for acute findings. However, patient does respond with Noelle to better assessment of mental status. patient was switched off Fentanyl to Precedex. Patient becomes very restless when off Precedex however will follow directions either by showing her and she will repeat back. * f/u repeat cultures from 07/14 because of fever spike * Diarrrhea--->order for C. dif * Goiter-->thyroid US, TSI, TBII, patient is on methamiazole; off amiodarone (likely worsening LFTs), and on beta sandra PRN * When patient is more stable, will need cardiac workup * Order for venous doppler edema, nonpitting b/l; low suspicion for dvt (patient has been on heparin for the apical thrombus)
--- NOTE | 2018-07-16 09:00 | RAD ---
HISTORY: s/p intubation COMPARISON: Chest x-ray performed 07/15/18 TECHNIQUE: Chest, one view. FINDINGS: Endotracheal tube terminates approximately 3.9 cm above the key. Right subclavian approach central venous catheter extends to the cavoatrial junction. Nasogastric tube extends beyond the hemidiaphragm towards expected location of the stomach. Numerous external wires and leads obscure evaluation of the underlying parenchyma. LUNGS: Moderate pulmonary venous congestion. Biapical pleural thickening/fluid. Please note that chest x-ray has limited sensitivity for the detection of pulmonary masses. PLEURA: No significant pleural effusion identified. No definite pneumothorax . CARDIOVASCULAR: Heart size appears within normal limits. OSSEOUS STRUCTURES: Osseous demineralization. Degenerative changes. VISUALIZED UPPER ABDOMEN: Unremarkable. OTHER FINDINGS: None. IMPRESSION: Moderate pulmonary venous congestion. Biapical pleural thickening/fluid. Endotracheal tube, nasogastric tube, and right subclavian approach central venous catheter as above.
[2018-07-16 09:25] LABS: BANDS 4 % (0-2); LYMPHOCYTE 7 % (20-40); METAMYELOCYTE 1 % (0-0); MONOCYTE 10 % (0-10); NEUTROPHIL 78 % (50-75); PLATELET ESTIMATE SLIGHTLY DECREASED (NORMAL); TOTAL CELLS COUNTED 100
[2018-07-16 09:26] LABS: POIKILOCYTOSIS SLIGHT
[2018-07-16 09:28] LABS: ANISOCYTOSIS MODERATE; BURR CELLS SLIGHT; HYPOCHROMIC SLIGHT; OVALOCYTES SLIGHT; POLYCHROMIC SLIGHT
[2018-07-16 09:30] LABS: LARGE PLATELETS PRESENT
[2018-07-16 09:31] LABS: TOXIC GRANULATION PRESENT
[2018-07-16] MEDS: MethylPREDNISolone 40 mg Vial IVP SCH (10:01)
[2018-07-16] MEDS: Pantoprazole 40 mg Susp UD PO SCH ×2 (10:03→17:16)
[2018-07-16] MEDS: Lactobacillus Acidophilus 500 MU Cap PO SCH ×2 (10:03→20:42)
[2018-07-16] MEDS: Propranolol 5 mg Tab PO SCH ×3 (10:03→17:14)
[2018-07-16] MEDS: (Lantus) Insulin Glargine, Recombinant SC SCH (10:07)
--- NOTE | 2018-07-16 11:53 | CT ---
Date of service: 07/16/2018 CT chest without IV contrast Indication: Pleural effusion Technique: Contiguous axial images were obtained through the chest without intravenous contrast enhancement. Sagittal and coronal reconstructions were generated and reviewed. This CT exam was performed using 1 or more of the following dose reduction techniques: Automated exposure control, adjustment of the MAA and/or kV according to patient size, and/or use of iterative reconstruction technique. Radiation dose (DLP): 530.51 MGy-cm. Comparison: Chest CT without contrast performed 07/07/18 Findings: Endotracheal tube terminates above the key. Nasogastric tube extends to the stomach. Heterogeneous enlarged thyroid gland. Right Cardiomegaly. Trace pericardial fluid. Moderate to large bilateral pleural effusions and associated consolidations. Patchy ground-glass infiltrates/edema noted within the upper lobes. No pneumothorax. Limited visualization of the noncontrast upper abdomen: Fatty atrophy of the pancreas. 13 mm left adrenal gland nodule measures approximately 33 HU, indeterminate. No acute osseous abnormality is detected. Impression: Endotracheal tube terminates above the key. Nasogastric tube extends to the stomach. Heterogeneous enlarged thyroid gland. Right Cardiomegaly. Trace pericardial fluid. Moderate to large bilateral pleural effusions and associated consolidations. Patchy ground-glass infiltrates/edema noted within the upper lobes. 13 mm left adrenal gland nodule measures approximately 33 HU, indeterminate. If indicated, outpatient dedicated cross-sectional imaging suggested for further characterization. Fatty atrophy of the pancreas.
--- NOTE | 2018-07-16 14:29 | CP.PCM.PN ---
Subjective - Date & Time of Evaluation Date of Evaluation: 07/16/18 Time of Evaluation: 09:00 - Subjective Subjective: events noted opens eyes no fever Objective - Vital Signs/Intake and Output Vital Signs (last 24 hours): Temp Pulse Resp BP Pulse Ox 99.3 F 96 H 25 H 141/85 96 07/16/18 06:00 07/16/18 07:00 07/16/18 07:00 07/16/18 06:28 07/16/18 07:00 Intake and Output: 07/16/18 07/16/18 06:59 18:59 Intake Total 1341.9 152.9 Output Total 750 Balance 591.9 152.9 - Medications Medications: Current Medications Acetaminophen (Tylenol 325mg Tab) 650 mg PO Q6 PRN PRN Reason: Fever >100.4 F Last Admin: 07/15/18 04:35 Dose: 650 mg Albuterol/Ipratropium (Duoneb 3 Mg/0.5 Mg (3 Ml) Ud) 3 ml INH RQ6 [facility] Last Admin: 07/16/18 13:44 Dose: 3 ml Aspirin (Ecotrin) 81 mg PO DAILY [facility] Last Admin: 07/16/18 10:02 Dose: 81 mg Clopidogrel Bisulfate (Plavix) 75 mg PO DAILY [facility] Last Admin: 07/16/18 10:02 Dose: 75 mg Ergocalciferol (Drisdol 50,000 Intl Units Cap) 1 cap PO Q7D [facility] Last Admin: 07/11/18 14:50 Dose: 1 cap Heparin Sodium/Sodium Chloride (Heparin 21671 Units/250ml 1/2 Normal Saline) 25,000 units in 250 mls @ 10.207 mls/hr IV .Q24H PRN; Protocol PRN Reason: PROTOCOL Last Titration: 07/16/18 08:10 Dose: 11 units/kg/hr, 6.237 mls/hr Vancomycin HCl 1 gm/ Sodium (Chloride) 250 mls @ 166.7 mls/hr IVPB Q24H [facility]; Protocol Last Admin: 07/15/18 19:22 Dose: 166.7 mls/hr Ceftriaxone Sodium 2 gm/ (Sodium Chloride) 100 mls @ 100 mls/hr IVPB Q12H [facility]; Protocol Last Admin: 07/16/18 05:08 Dose: 100 mls/hr Dexmedetomidine HCl 200 mcg/ (Sodium Chloride) 50 mls @ 2.91 mls/hr IV TITR PRN; Protocol PRN Reason: Sedation Last Titration: 07/16/18 13:30 Dose: 0.2 mcg/kg/hr, 2.91 mls/hr Insulin Aspart (Novolog) 0 unit SC Q6 [facility]; Protocol Last Admin: 07/16/18 13:02 Dose: 12 units Insulin Glargine (Lantus) 10 unit SC DAILY [facility] Last Admin: 07/16/18 10:07 Dose: 10 units Lactobacillus Acidophilus (Bacid Acidophilus) 1 cap PO Q12H [facility] Last Admin: 07/16/18 10:03 Dose: 1 cap Methimazole (Tapazole) 10 mg PO TID [facility] Last Admin: 07/16/18 10:03 Dose: 10 mg Methylprednisolone (Solu-Medrol) 20 mg IVP DAILY [facility] Last Admin: 07/16/18 10:01 Dose: 20 mg Midodrine (Proamatine) 2.5 mg PO Q8H [facility] Last Admin: 07/16/18 10:02 Dose: 2.5 mg Pantoprazole Sodium (Protonix Susp) 40 mg PO BID [facility] Last Admin: 07/16/18 10:03 Dose: 40 mg Propranolol HCl (Inderal) 5 mg PO TID [facility] Last Admin: 07/16/18 10:03 Dose: 5 mg Rosuvastatin Calcium (Crestor) 2.5 mg PO HS [facility] Last Admin: 07/15/18 21:35 Dose: 2.5 mg - Labs Labs: 07/16/18 06:10 07/16/18 06:10 PT 13.6 SECONDS (9.7-12.2) H 07/16/18 06:10 INR 1.2 07/16/18 06:10 APTT 90 SECONDS (21-34) H D 07/16/18 13:35 - Constitutional Appears: Non-toxic, Chronically Ill - Head Exam Head Exam: NORMOCEPHALIC - Eye Exam Eye Exam: absent: Scleral icterus - ENT Exam ENT Exam: Mucous Membranes Dry - Neck Exam Neck Exam: absent: Lymphadenopathy - Respiratory Exam Respiratory Exam: Decreased Breath Sounds, Rales, Rhonchi - Cardiovascular Exam Cardiovascular Exam: REGULAR RHYTHM, +S1, +S2 - GI/Abdominal Exam GI & Abdominal Exam: Distended. absent: Tenderness - Rectal Exam Rectal Exam: Deferred - Exam Exam: NORMAL INSPECTION Assessment and Plan (1) NEHA (acute kidney injury) Status: Acute (2) Acute renal failure Status: Acute (3) Acute respiratory failure Status: Acute (4) Aspiration pneumonia Status: Acute (5) Septic shock Status: Acute (6) Urinary tract infection Status: Acute (7) Diabetes mellitus Status: Chronic - Assessment and Plan (Free Text) Assessment: will cont iv rx consider rx for 6 weeks with iv antibiotics consider [facility]UBERT
--- NOTE | 2018-07-16 17:18 | US ---
Date of service: 07/16/2018 HISTORY: hyperthryoidism; goiter TECHNIQUE: Sonographic evaluation of the thyroid gland. COMPARISON: None FINDINGS: Limited study due to patient condition. RIGHT LOBE: Measures 4.6 x 2.1 x 2.1 cm. Heterogeneous echotexture. Nodules: Numerous nodules. For example: 1.8 x 0.9 x 1.7 cm lower pole heterogeneous nodule; right upper pole 1.0 x 0.7 x 0.9 cm cystic nodule containing intracystic vascular nodule; Heterogeneous mid pole 0.8 x 0.5 x 0.9 cm heterogeneous nodule; 0.6 x 0.5 x 0.8 cm hypoechoic midpole nodule; LEFT LOBE: Measures 5.1 x 2.6 x 2.4 cm. Heterogeneous echotexture. Nodules: Numerous nodules. Complex left upper pole nodule 2.1 x 1.5 x 1.8 cm. Complex cystic appearing 2.5 x 1.4 x 1.7 cm left midpole nodule. ISTHMUS: Measures 0.4 cm. Heterogeneous echotexture. Nodules: None OTHER FINDINGS: None . IMPRESSION: Heterogeneous thyroid echotexture. Numerous nodules as described above. Suggest percutaneous biopsy of the following suspicious nodules; 1.8 x 0.9 x 1.7 cm right lower pole nodule, 1.0 x 0.7 x 0.9 cm right upper pole lesion with intracystic vascular nodule, complex left upper pole nodule measuring 2.1 x 1.5 x 1.8 cm.
--- NOTE | 2018-07-16 17:32 | CP.CCUPN ---
CCU Subjective - Physician Review Events Since Last Encounter (Free Text): 07/16/18 17:31 Patient currently on ventilator. Episodes of dyspnea noted. Unable to tolerate the weaning process. Underwent CT scan of the chest. Bilateral pleural effusion noted. Vital signs stable. On antibiotic. Possibly will do the thoracentesis tomorrow. The weaning process after that. Critical Care Time Spent (in minutes): 45 CCU Objective - Vital Signs / Intake & Output Vital Signs (Last 4 hours): Vital Signs Temp Pulse Resp BP Pulse Ox 07/16/18 17:00 80 14 97 07/16/18 16:28 72 13 120/62 97 07/16/18 16:00 75 13 98 07/16/18 15:28 77 13 125/64 97 07/16/18 15:00 75 15 97 07/16/18 14:28 67 11 L 100/50 L 97 07/16/18 14:00 97.3 F L 75 12 97 Intake and Output (Last 8hrs): Intake & Output 07/16/18 07/16/18 07/16/18 06:59 14:59 22:59 Intake Total 643.9 583.18 262.39 Output Total 500 Balance 143.9 583.18 262.39 Weight 129 lb Intake: IV 82 100 Intake, IV Amount 201.9 53.18 127.39 Right Distal Port 100 Subclavian Right Hand 40 47.38 18.69 Right Medial Port 61.9 5.8 8.7 Subclavian Right Proximal Port 100 Subclavian Tube Feeding 360 180 135 Other 250 Output: Urine 500 Urine, Voided 500 Other: # Bowel Movements 1 1 1 - Physical Exam Head: Positive for: Atraumatic, Normocephalic Pupils: Positive for: PERRL. Negative for: Sluggish, Pinpoint Extroacular Muscles: Positive for: EOMI (not following commands for EOMI testing, but is able to track staff across room with eyes without appreciable issue), Other. Negative for: Gaze Palsy Conjunctiva: Positive for: Normal. Negative for: Injected, Icteric Mouth: Positive for: Moist Mucous Membranes, Other (ETT in place) Nose (External): Positive for: Atraumatic. Negative for: Abrasion, Contusion, Laceration Nose (Internal): Positive for: No Active Bleeding. Negative for: Epistaxis Neck: Positive for: Normal Range of Motion (passive and active (sometimes turning head to track across room)), Trachea Midline. Negative for: JVD Respiratory/Chest: Positive for: Good Air Exchange, Rhonchi (mild ronchi in bilateral bases), Other (intubated and ventilated). Negative for: Wheezes, Rales Cardiovascular: Positive for: Normal S1, S2, Peripheal Pulses Present (+2 radials), Other (alternates between regular rate in 80's and tachycardic up to 130's, appears regular rhythm during tachy phases). Negative for: Regular Rate and Rhythm, Tachycardic, Bradycardic Abdomen: Positive for: Normal Bowel Sounds. Negative for: Tenderness, Distention Upper Extremity: Positive for: Normal Inspection, NORMAL PULSES. Negative for: Cyanosis, Edema Lower Extremity: Positive for: Normal Inspection. Negative for: Edema, CALF TENDERNESS Neurological: Positive for: Other (weaning from sedation, intermittently opens eyes and tracks staff across room, but minimal spontaneous movements, not following verbal or pantomimed commands) Skin: Positive for: Warm, Dry, Normal Color Psychiatric: Positive for: Other (intermittently awake and alert, but not following commands, unable to assess mood/anxiety/mentation) - Medications Active Medications: Active Medications Generic Name Dose Route Start Last Admin Trade Name Freq PRN Reason Stop Dose Admin Acetaminophen 650 mg 07/12/18 15:57 07/15/18 04:35 Tylenol 325mg Tab PO 650 mg Q6 PRN Administration Fever >100.4 F Albuterol/Ipratropium 3 ml 07/14/18 20:00 07/16/18 13:44 Duoneb 3 Mg/0.5 Mg (3 Ml) Ud INH 3 ml RQ6 MANOLO Administration Aspirin 81 mg 07/12/18 10:00 07/16/18 10:02 Ecotrin PO 81 mg DAILY MANOLO Administration Clopidogrel Bisulfate 75 mg 07/14/18 10:00 07/16/18 10:02 Plavix PO 75 mg DAILY MANOLO Administration Ergocalciferol 1 cap 07/11/18 12:45 07/11/18 14:50 Drisdol 50,000 Intl Units Cap PO 1 cap Q7D MANOLO Administration Heparin Sodium/Sodium Chloride 25,000 units in 250 mls @ 10.207 mls/hr 07/11/18 09:20 07/16/18 08:10 Heparin 76195 Units/250ml 1/2 Normal Saline IV 11 units/kg/hr .Q24H PRN 6.237 mls/hr PROTOCOL Titration Protocol 18 UNITS/KG/HR Vancomycin HCl 1 gm/ Sodium 250 mls @ 166.7 mls/hr 07/14/18 18:00 07/16/18 17:13 Chloride IVPB 166.7 mls/hr Q24H MANOLO Administration Protocol Ceftriaxone Sodium 2 gm/ 100 mls @ 100 mls/hr 07/14/18 17:00 07/16/18 17:11 Sodium Chloride IVPB 100 mls/hr Q12H MANOLO Administration Protocol Dexmedetomidine HCl 200 mcg/ 50 mls @ 2.91 mls/hr 07/15/18 19:55 07/16/18 13:30 Sodium Chloride IV 0.2 mcg/kg/hr TITR PRN 2.91 mls/hr Sedation Titration Protocol 0.2 MCG/KG/HR Insulin Aspart 0 unit 07/11/18 08:28 07/16/18 13:02 Novolog SC 12 units Q6 MANOLO Administration Protocol Insulin Glargine 10 unit 07/12/18 20:00 07/16/18 10:07 Lantus SC 10 units DAILY MANOLO Administration Lactobacillus Acidophilus 1 cap 07/08/18 20:00 07/16/18 10:03 Bacid Acidophilus PO 1 cap Q12H MANOLO Administration Methimazole 10 mg 07/11/18 10:00 07/16/18 17:14 Tapazole PO 10 mg TID MANOLO Administration Methylprednisolone 20 mg 07/14/18 10:00 07/16/18 10:01 Solu-Medrol IVP 20 mg DAILY MANOLO Administration Midodrine 2.5 mg 07/15/18 10:15 07/16/18 17:16 Proamatine PO 2.5 mg Q8H MANOLO Administration Pantoprazole Sodium 40 mg 07/11/18 10:00 07/16/18 17:16 Protonix Susp PO 40 mg BID MANOLO Administration Propranolol HCl 5 mg 07/16/18 10:00 07/16/18 17:14 Inderal PO 5 mg TID MANOLO Administration Rosuvastatin Calcium 2.5 mg 07/13/18 22:00 07/15/18 21:35 Crestor PO 2.5 mg HS MANOLO Administration - Patient Studies Lab Studies: Microbiology Studies 07/14/18 13:01 Blood Culture - Preliminary Blood NO GROWTH AFTER 48 HOURS 07/14/18 13:01 Blood Culture - Preliminary Blood NO GROWTH AFTER 48 HOURS 07/14/18 13:01 Gram Stain - Final Trachasp Sputum Culture - Final Yeast Species 07/14/18 13:01 Urine Culture - Final Urine No Growth (<1,000 CFU/ML) Lab Studies 07/16/18 07/16/18 07/16/18 Range/Units 13:46 13:35 13:26 WBC (4.8-10.8) K/uL RBC (3.80-5.20) Mil/uL Hgb (11.0-16.0) g/dL Hct (34.0-47.0) % MCV (81.0-99.0) fL MCH (27.0-31.0) pg MCHC (33.0-37.0) g/dL RDW (11.5-14.5) % Plt Count (130-400) K/uL MPV (7.2-11.7) fL Neut % (Auto) (50.0-75.0) % Lymph % (Auto) (20.0-40.0) % Mellette % (Auto) (0.0-10.0) % Eos % (Auto) (0.0-4.0) % Baso % (Auto) (0.0-2.0) % Neut # (Auto) (1.8-7.0) K/uL Lymph # (Auto) (1.0-4.3) K/uL Mellette # (Auto) (0.0-0.8) K/uL Eos # (Auto) (0.0-0.7) K/uL Baso # (Auto) (0.0-0.2) K/uL Neutrophils % (Manual) (50-75) % Band Neutrophils % (0-2) % Lymphocytes % (Manual) (20-40) % Monocytes % (Manual) (0-10) % Metamyelocytes % (0-0) % Toxic Granulation Platelet Estimate (NORMAL) Large Platelets Polychromasia Hypochromasia (manual) Poikilocytosis (manual Anisocytosis (manual) Macrocytosis (manual) Ovalocytes Otto Cells PT (9.7-12.2) SECONDS INR APTT 90 H D (21-34) SECONDS Puncture Site pCO2 (35-45) mm/Hg pO2 (80-100) mm/Hg HCO3 (21-28) mmol/L ABG pH (7.35-7.45) ABG Total CO2 (22-28) mmol/L ABG O2 Saturation (95-98) % ABG Base Excess (-2.0-3.0) mmol/L ABG Hemoglobin (11.7-17.4) g/dL ABG Carboxyhemoglobin (0.5-1.5) % POC ABG HHb (Measured) (0.0-5.0) % ABG Methemoglobin (0.0-3.0) % Kevon Test A-a O2 Difference mm/Hg Respiratory Index Hgb O2 Saturation (95.0-98.0) % Vent Mode Mechanical Rate FiO2 % Tidal Volume PEEP Sodium (132-148) mmol/L Potassium (3.6-5.2) mmol/L Chloride (98-107) mmol/L Carbon Dioxide (22-30) mmol/L Anion Gap (10-20) BUN (7-17) mg/dL Creatinine (0.7-1.2) mg/dL Est GFR ( Amer) Est GFR (Non-Af Amer) POC Glucose (mg/dL) (65-110) mg/dL Random Glucose (65-105) mg/dL Calcium (8.6-10.4) mg/dl Phosphorus (2.5-4.5) mg/dL Magnesium (1.6-2.3) mg/dL Total Bilirubin (0.2-1.3) mg/dL AST (14-36) U/L ALT (9-52) U/L Alkaline Phosphatase (38-126) U/L Total Protein (6.3-8.3) g/dL Albumin (3.5-5.0) g/dL Globulin (2.2-3.9) gm/dL Albumin/Globulin Ratio (1.0-2.1) Vancomycin Trough 14.7 H (5.0-10.0) ug/mL C. difficile Ag & Toxin Negative (NEGATIVE) 07/16/18 07/16/18 07/16/18 Range/Units 11:13 06:10 06:10 WBC (4.8-10.8) K/uL RBC (3.80-5.20) Mil/uL Hgb (11.0-16.0) g/dL Hct (34.0-47.0) % MCV (81.0-99.0) fL MCH (27.0-31.0) pg MCHC (33.0-37.0) g/dL RDW (11.5-14.5) % Plt Count (130-400) K/uL MPV (7.2-11.7) fL Neut % (Auto) (50.0-75.0) % Lymph % (Auto) (20.0-40.0) % Mellette % (Auto) (0.0-10.0) % Eos % (Auto) (0.0-4.0) % Baso % (Auto) (0.0-2.0) % Neut # (Auto) (1.8-7.0) K/uL Lymph # (Auto) (1.0-4.3) K/uL Mellette # (Auto) (0.0-0.8) K/uL Eos # (Auto) (0.0-0.7) K/uL Baso # (Auto) (0.0-0.2) K/uL Neutrophils % (Manual) (50-75) % Band Neutrophils % (0-2) % Lymphocytes % (Manual) (20-40) % Monocytes % (Manual) (0-10) % Metamyelocytes % (0-0) % Toxic Granulation Platelet Estimate (NORMAL) Large Platelets Polychromasia Hypochromasia (manual) Poikilocytosis (manual Anisocytosis (manual) Macrocytosis (manual) Ovalocytes Otto Cells PT 13.6 H (9.7-12.2) SECONDS INR 1.2 APTT 40 H (21-34) SECONDS Puncture Site pCO2 (35-45) mm/Hg pO2 (80-100) mm/Hg HCO3 (21-28) mmol/L ABG pH (7.35-7.45) ABG Total CO2 (22-28) mmol/L ABG O2 Saturation (95-98) % ABG Base Excess (-2.0-3.0) mmol/L ABG Hemoglobin (11.7-17.4) g/dL ABG Carboxyhemoglobin (0.5-1.5) % POC ABG HHb (Measured) (0.0-5.0) % ABG Methemoglobin (0.0-3.0) % Kevon Test A-a O2 Difference mm/Hg Respiratory Index Hgb O2 Saturation (95.0-98.0) % Vent Mode Mechanical Rate FiO2 % Tidal Volume PEEP Sodium 145 (132-148) mmol/L Potassium 4.3 (3.6-5.2) mmol/L Chloride 114 H (98-107) mmol/L Carbon Dioxide 23 (22-30) mmol/L Anion Gap 12 (10-20) BUN 37 H (7-17) mg/dL Creatinine 1.0 (0.7-1.2) mg/dL Est GFR ( Amer) > 60 Est GFR (Non-Af Amer) 58 POC Glucose (mg/dL) 408 H* (65-110) mg/dL Random Glucose 312 H (65-105) mg/dL Calcium 7.4 L (8.6-10.4) mg/dl Phosphorus 3.3 (2.5-4.5) mg/dL Magnesium 1.9 (1.6-2.3) mg/dL Total Bilirubin 0.3 (0.2-1.3) mg/dL AST 31 (14-36) U/L ALT 68 H D (9-52) U/L Alkaline Phosphatase 112 (38-126) U/L Total Protein 4.9 L (6.3-8.3) g/dL Albumin 2.3 L (3.5-5.0) g/dL Globulin 2.6 (2.2-3.9) gm/dL Albumin/Globulin Ratio 0.9 L (1.0-2.1) Vancomycin Trough (5.0-10.0) ug/mL C. difficile Ag & Toxin (NEGATIVE) 07/16/18 07/16/18 07/16/18 Range/Units 06:10 05:19 05:18 WBC 8.3 (4.8-10.8) K/uL RBC 3.26 L (3.80-5.20) Mil/uL Hgb 9.9 L (11.0-16.0) g/dL Hct 29.8 L (34.0-47.0) % MCV 91.2 (81.0-99.0) fL MCH 30.3 (27.0-31.0) pg MCHC 33.2 (33.0-37.0) g/dL RDW 15.6 H (11.5-14.5) % Plt Count 126 L (130-400) K/uL MPV 10.0 (7.2-11.7) fL Neut % (Auto) 82.7 H (50.0-75.0) % Lymph % (Auto) 8.6 L (20.0-40.0) % Mellette % (Auto) 8.5 (0.0-10.0) % Eos % (Auto) 0.0 (0.0-4.0) % Baso % (Auto) 0.2 (0.0-2.0) % Neut # (Auto) 6.9 (1.8-7.0) K/uL Lymph # (Auto) 0.7 L (1.0-4.3) K/uL Mellette # (Auto) 0.7 (0.0-0.8) K/uL Eos # (Auto) 0.0 (0.0-0.7) K/uL Baso # (Auto) 0.0 (0.0-0.2) K/uL Neutrophils % (Manual) 78 H (50-75) % Band Neutrophils % 4 H (0-2) % Lymphocytes % (Manual) 7 L (20-40) % Monocytes % (Manual) 10 (0-10) % Metamyelocytes % 1 H (0-0) % Toxic Granulation Present Platelet Estimate Slightly decreased L (NORMAL) Large Platelets Present Polychromasia Slight Hypochromasia (manual) Slight Poikilocytosis (manual Slight Anisocytosis (manual) Moderate Macrocytosis (manual) Slight Ovalocytes Slight Otto Cells Slight PT (9.7-12.2) SECONDS INR APTT (21-34) SECONDS Puncture Site L bra pCO2 39 (35-45) mm/Hg pO2 61 L (80-100) mm/Hg HCO3 22.3 (21-28) mmol/L ABG pH 7.36 (7.35-7.45) ABG Total CO2 23.2 (22-28) mmol/L ABG O2 Saturation 94.1 L (95-98) % ABG Base Excess -3.2 L (-2.0-3.0) mmol/L ABG Hemoglobin 10.2 L (11.7-17.4) g/dL ABG Carboxyhemoglobin 1.8 H (0.5-1.5) % POC ABG HHb (Measured) 5.7 H (0.0-5.0) % ABG Methemoglobin 0.9 (0.0-3.0) % Kevon Test Na A-a O2 Difference 247.0 mm/Hg Respiratory Index 4.0 Hgb O2 Saturation 91.6 L (95.0-98.0) % Vent Mode Prvc Mechanical Rate 12 FiO2 50.0 % Tidal Volume 450 PEEP 5 Sodium (132-148) mmol/L Potassium (3.6-5.2) mmol/L Chloride (98-107) mmol/L Carbon Dioxide (22-30) mmol/L Anion Gap (10-20) BUN (7-17) mg/dL Creatinine (0.7-1.2) mg/dL Est GFR ( Amer) Est GFR (Non-Af Amer) POC Glucose (mg/dL) 287 H (65-110) mg/dL Random Glucose (65-105) mg/dL Calcium (8.6-10.4) mg/dl Phosphorus (2.5-4.5) mg/dL Magnesium (1.6-2.3) mg/dL Total Bilirubin (0.2-1.3) mg/dL AST (14-36) U/L ALT (9-52) U/L Alkaline Phosphatase (38-126) U/L Total Protein (6.3-8.3) g/dL Albumin (3.5-5.0) g/dL Globulin (2.2-3.9) gm/dL Albumin/Globulin Ratio (1.0-2.1) Vancomycin Trough (5.0-10.0) ug/mL C. difficile Ag & Toxin (NEGATIVE) 07/16/18 07/15/18 Range/Units 00:01 18:03 WBC (4.8-10.8) K/uL RBC (3.80-5.20) Mil/uL Hgb (11.0-16.0) g/dL Hct (34.0-47.0) % MCV (81.0-99.0) fL MCH (27.0-31.0) pg MCHC (33.0-37.0) g/dL RDW (11.5-14.5) % Plt Count (130-400) K/uL MPV (7.2-11.7) fL Neut % (Auto) (50.0-75.0) % Lymph % (Auto) (20.0-40.0) % Mellette % (Auto) (0.0-10.0) % Eos % (Auto) (0.0-4.0) % Baso % (Auto) (0.0-2.0) % Neut # (Auto) (1.8-7.0) K/uL Lymph # (Auto) (1.0-4.3) K/uL Mellette # (Auto) (0.0-0.8) K/uL Eos # (Auto) (0.0-0.7) K/uL Baso # (Auto) (0.0-0.2) K/uL Neutrophils % (Manual) (50-75) % Band Neutrophils % (0-2) % Lymphocytes % (Manual) (20-40) % Monocytes % (Manual) (0-10) % Metamyelocytes % (0-0) % Toxic Granulation Platelet Estimate (NORMAL) Large Platelets Polychromasia Hypochromasia (manual) Poikilocytosis (manual Anisocytosis (manual) Macrocytosis (manual) Ovalocytes Otto Cells PT (9.7-12.2) SECONDS INR APTT (21-34) SECONDS Puncture Site pCO2 (35-45) mm/Hg pO2 (80-100) mm/Hg HCO3 (21-28) mmol/L ABG pH (7.35-7.45) ABG Total CO2 (22-28) mmol/L ABG O2 Saturation (95-98) % ABG Base Excess (-2.0-3.0) mmol/L ABG Hemoglobin (11.7-17.4) g/dL ABG Carboxyhemoglobin (0.5-1.5) % POC ABG HHb (Measured) (0.0-5.0) % ABG Methemoglobin (0.0-3.0) % Kevon Test A-a O2 Difference mm/Hg Respiratory Index Hgb O2 Saturation (95.0-98.0) % Vent Mode Mechanical Rate FiO2 % Tidal Volume PEEP Sodium (132-148) mmol/L Potassium (3.6-5.2) mmol/L Chloride (98-107) mmol/L Carbon Dioxide (22-30) mmol/L Anion Gap (10-20) BUN (7-17) mg/dL Creatinine (0.7-1.2) mg/dL Est GFR ( Amer) Est GFR (Non-Af Amer) POC Glucose (mg/dL) 257 H 232 H (65-110) mg/dL Random Glucose (65-105) mg/dL Calcium (8.6-10.4) mg/dl Phosphorus (2.5-4.5) mg/dL Magnesium (1.6-2.3) mg/dL Total Bilirubin (0.2-1.3) mg/dL AST (14-36) U/L ALT (9-52) U/L Alkaline Phosphatase (38-126) U/L Total Protein (6.3-8.3) g/dL Albumin (3.5-5.0) g/dL Globulin (2.2-3.9) gm/dL Albumin/Globulin Ratio (1.0-2.1) Vancomycin Trough (5.0-10.0) ug/mL C. difficile Ag & Toxin (NEGATIVE) Laboratory Results - last 24 hr 07/15/18 07/16/18 07/16/18 18:03 00:01 05:18 WBC RBC Hgb Hct MCV MCH MCHC RDW Plt Count MPV Neut % (Auto) Lymph % (Auto) Mellette % (Auto) Eos % (Auto) Baso % (Auto) Neut # (Auto) Lymph # (Auto) Mellette # (Auto) Eos # (Auto) Baso # (Auto) Neutrophils % (Manual) Band Neutrophils % Lymphocytes % (Manual) Monocytes % (Manual) Metamyelocytes % Toxic Granulation Platelet Estimate Large Platelets Polychromasia Hypochromasia (manual) Poikilocytosis (manual Anisocytosis (manual) Macrocytosis (manual) Ovalocytes Dev[place]ah Cells PT INR APTT Puncture Site pCO2 pO2 HCO3 ABG pH ABG Total CO2 ABG O2 Saturation ABG Base Excess ABG Hemoglobin ABG Carboxyhemoglobin POC ABG HHb (Measured) ABG Methemoglobin Kevon Test A-a O2 Difference Respiratory Index Hgb O2 Saturation Vent Mode Mechanical Rate FiO2 Tidal Volume PEEP Sodium Potassium Chloride Carbon Dioxide Anion Gap BUN Creatinine Est GFR ( Amer) Est GFR (Non-Af Amer) POC Glucose (mg/dL) 232 H 257 H 287 H Random Glucose Calcium Phosphorus Magnesium Total Bilirubin AST ALT Alkaline Phosphatase Total Protein Albumin Globulin Albumin/Globulin Ratio Vancomycin Trough C. difficile Ag & Toxin 07/16/18 07/16/18 07/16/18 05:19 06:10 06:10 WBC 8.3 RBC 3.26 L Hgb 9.9 L Hct 29.8 L MCV 91.2 MCH 30.3 MCHC 33.2 RDW 15.6 H Plt Count 126 L MPV 10.0 Neut % (Auto) 82.7 H Lymph % (Auto) 8.6 L Mellette % (Auto) 8.5 Eos % (Auto) 0.0 Baso % (Auto) 0.2 Neut # (Auto) 6.9 Lymph # (Auto) 0.7 L Mellette # (Auto) 0.7 Eos # (Auto) 0.0 Baso # (Auto) 0.0 Neutrophils % (Manual) 78 H Band Neutrophils % 4 H Lymphocytes % (Manual) 7 L Monocytes % (Manual) 10 Metamyelocytes % 1 H Toxic Granulation Present Platelet Estimate Slightly decreased L Large Platelets Present Polychromasia Slight Hypochromasia (manual) Slight Poikilocytosis (manual Slight Anisocytosis (manual) Moderate Macrocytosis (manual) Slight Ovalocytes Slight Devorah Cells Slight PT INR APTT Puncture Site L bra pCO2 39 pO2 61 L HCO3 22.3 ABG pH 7.36 ABG Total CO2 23.2 ABG O2 Saturation 94.1 L ABG Base Excess -3.2 L ABG Hemoglobin 10.2 L ABG Carboxyhemoglobin 1.8 H POC ABG HHb (Measured) 5.7 H ABG Methemoglobin 0.9 Kevon Test Na A-a O2 Difference 247.0 Respiratory Index 4.0 Hgb O2 Saturation 91.6 L Vent Mode Prvc Mechanical Rate 12 FiO2 50.0 Tidal Volume 450 PEEP 5 Sodium 145 Potassium 4.3 Chloride 114 H Carbon Dioxide 23 Anion Gap 12 BUN 37 H Creatinine 1.0 Est GFR ( Amer) > 60 Est GFR (Non-Af Amer) 58 POC Glucose (mg/dL) Random Glucose 312 H Calcium 7.4 L Phosphorus 3.3 Magnesium 1.9 Total Bilirubin 0.3 AST 31 ALT 68 H D Alkaline Phosphatase 112 Total Protein 4.9 L Albumin 2.3 L Globulin 2.6 Albumin/Globulin Ratio 0.9 L Vancomycin Trough C. difficile Ag & Toxin 07/16/18 07/16/18 07/16/18 06:10 11:13 13:26 WBC RBC Hgb Hct MCV MCH MCHC RDW Plt Count MPV Neut % (Auto) Lymph % (Auto) Mellette % (Auto) Eos % (Auto) Baso % (Auto) Neut # (Auto) Lymph # (Auto) Mellette # (Auto) Eos # (Auto) Baso # (Auto) Neutrophils % (Manual) Band Neutrophils % Lymphocytes % (Manual) Monocytes % (Manual) Metamyelocytes % Toxic Granulation Platelet Estimate Large Platelets Polychromasia Hypochromasia (manual) Poikilocytosis (manual Anisocytosis (manual) Macrocytosis (manual) Ovalocytes Devorah Cells PT 13.6 H INR 1.2 APTT 40 H Puncture Site pCO2 pO2 HCO3 ABG pH ABG Total CO2 ABG O2 Saturation ABG Base Excess ABG Hemoglobin ABG Carboxyhemoglobin POC ABG HHb (Measured) ABG Methemoglobin Kevon Test A-a O2 Difference Respiratory Index Hgb O2 Saturation Vent Mode Mechanical Rate FiO2 Tidal Volume PEEP Sodium Potassium Chloride Carbon Dioxide Anion Gap BUN Creatinine Est GFR ( Amer) Est GFR (Non-Af Amer) POC Glucose (mg/dL) 408 H* Random Glucose Calcium Phosphorus Magnesium Total Bilirubin AST ALT Alkaline Phosphatase Total Protein Albumin Globulin Albumin/Globulin Ratio Vancomycin Trough C. difficile Ag & Toxin Negative 07/16/18 07/16/18 13:35 13:46 WBC RBC Hgb Hct MCV MCH MCHC RDW Plt Count MPV Neut % (Auto) Lymph % (Auto) Mellette % (Auto) Eos % (Auto) Baso % (Auto) Neut # (Auto) Lymph # (Auto) Mellette # (Auto) Eos # (Auto) Baso # (Auto) Neutrophils % (Manual) Band Neutrophils % Lymphocytes % (Manual) Monocytes % (Manual) Metamyelocytes % Toxic Granulation Platelet Estimate Large Platelets Polychromasia Hypochromasia (manual) Poikilocytosis (manual Anisocytosis (manual) Macrocytosis (manual) Ovalocytes Devorah Cells PT INR APTT 90 H D Puncture Site pCO2 pO2 HCO3 ABG pH ABG Total CO2 ABG O2 Saturation ABG Base Excess ABG Hemoglobin ABG Carboxyhemoglobin POC ABG HHb (Measured) ABG Methemoglobin Kevon Test A-a O2 Difference Respiratory Index Hgb O2 Saturation Vent Mode Mechanical Rate FiO2 Tidal Volume PEEP Sodium Potassium Chloride Carbon Dioxide Anion Gap BUN Creatinine Est GFR ( Amer) Est GFR (Non-Af Amer) POC Glucose (mg/dL) Random Glucose Calcium Phosphorus Magnesium Total Bilirubin AST ALT Alkaline Phosphatase Total Protein Albumin Globulin Albumin/Globulin Ratio Vancomycin Trough 14.7 H C. difficile Ag & Toxin Fingerstick Blood Sugar Results: 408
[2018-07-16] MEDS: Rosuvastatin Calcium 2.5 mg Tab PO SCH (21:15)
[2018-07-16] MEDS: Heparin25000 units/250ml 1/2NS 25,000 UNITS/250 ML BAG IV PRN (23:00)
[2018-07-17] MEDS: Albuterol-Ipratrop 3 mg / 0.5 (3 ml) UD INH SCH ×4 (01:31→19:25)
[2018-07-17] MEDS: Dexmedetomidine Hydrochloride 200 MCG in Sodium Chloride 0.9% 48 ML IV PRN ×2 (02:07→20:25)
[2018-07-17] MEDS: (Novolog) Insulin Aspart, Recombinant 100 u/ml 10 ml vial SC SCH ×3 (05:50→17:53)
[2018-07-17 06:01] LABS: BASO % 0.3 % (0.0-2.0); HEMOGLOBIN 10.3 g/dL (11.0-16.0); LYMPH # 0.8 K/uL (1.0-4.3); LYMPH % 8.4 % (20.0-40.0); MEAN CELL VOLUME 91.4 fL (81.0-99.0); MEAN CORPUSCULAR HEMOGLOBIN 30.3 pg (27.0-31.0); MEAN CORPUSCULAR HGB CONC 33.1 g/dL (33.0-37.0); MEAN PLATELET VOLUME 10.3 fL (7.2-11.7); MONO # 1.2 K/uL (0.0-0.8); MONO % 12.4 % (0.0-10.0); NEUT # 7.3 K/uL (1.8-7.0); NEUT % 78.9 % (50.0-75.0); NRBC % 0.2 % (0.0-2.0); PLATELET COUNT 142 K/uL (130-400); RBC 3.39 Mil/uL (3.80-5.20); RED CELL DISTRIBUTION WIDTH 16.3 % (11.5-14.5); WHITE BLOOD COUNT 9.3 K/uL (4.8-10.8)
[2018-07-17 06:08] LABS: ABG ALLEN TEST POS; ARTERIAL BLOOD GAS HCO3 25.5 mmol/L (21-28); ARTERIAL BLOOD GAS HEMOGLOBIN 10.1 g/dL (11.7-17.4); ARTERIAL BLOOD GAS O2 SAT 96.3 % (95-98); ARTERIAL BLOOD GAS PCO2 39 mm/Hg (35-45); ARTERIAL BLOOD GAS PH 7.42 (7.35-7.45); ARTERIAL BLOOD GAS PO2 67 mm/Hg (80-100); ARTERIAL BLOOD GAS TCO2 26.5 mmol/L (22-28)
[2018-07-17 06:23] LABS: ALB/GLOB RATIO 0.9 (1.0-2.1); ALBUMIN 2.4 g/dL (3.5-5.0); ALT/SGPT 57 U/L (9-52); AST/SGOT 25 U/L (14-36); BLOOD UREA NITROGEN 39 mg/dL (7-17); CALCIUM 7.8 mg/dl (8.6-10.4); GFR NON-AFRICAN AMERICAN 58
--- NOTE | 2018-07-17 08:36 | RAD ---
Date of service: 07/17/2018 HISTORY: s/p intubation COMPARISON: 07/16/2018 FINDINGS: Endotracheal tube terminates 2.5 cm proximal to the key. The nasogastric tube terminates in the stomach. Right-sided central venous catheter terminates at the cavoatrial junction. LUNGS: There is worsening pulmonary edema. There is also pulmonary redistribution and mild pulmonary venous congestion PLEURA: Worsening pleural effusions, no pneumothorax apparent. CARDIOVASCULAR: Stable. OSSEOUS STRUCTURES: No significant abnormalities. VISUALIZED UPPER ABDOMEN: Normal. OTHER FINDINGS: None. IMPRESSION: Worsening pulmonary edema and effusions. Stable position of line and support tubes.
[2018-07-17 08:46] LABS: ANISOCYTOSIS SLIGHT; BANDS 2 % (0-2); HYPOCHROMIC SLIGHT; LYMPHOCYTE 9 % (20-40); MONOCYTE 5 % (0-10); NEUTROPHIL 84 % (50-75); PLATELET ESTIMATE NORMAL (NORMAL); POLYCHROMIC SLIGHT; TOTAL CELLS COUNTED 100
[2018-07-17] MEDS: Lactobacillus Acidophilus 500 MU Cap PO SCH ×2 (08:55→20:25)
[2018-07-17] MEDS: Propranolol 5 mg Tab PO SCH ×3 (09:15→17:35)
[2018-07-17] MEDS: Pantoprazole 40 mg Susp UD PO SCH ×2 (09:15→17:35)
[2018-07-17] MEDS: (Lantus) Insulin Glargine, Recombinant SC SCH ×3 (09:16→21:28)
[2018-07-17] MEDS ORDERED: (Lantus) Insulin Glargine, Recombinant SC SCH (10:00)
--- NOTE | 2018-07-17 11:52 | CP.PCM.PN ---
Subjective - Date & Time of Evaluation Date of Evaluation: 07/17/18 Time of Evaluation: 09:00 - Subjective Subjective: on vent afeb iv rx renewed Objective - Vital Signs/Intake and Output Vital Signs (last 24 hours): Temp Pulse Resp BP Pulse Ox 97.8 F 67 12 118/55 L 97 07/17/18 08:00 07/17/18 11:28 07/17/18 11:28 07/17/18 11:28 07/17/18 11:28 Intake and Output: 07/17/18 07/17/18 06:59 18:59 Intake Total 1049.56 511.73 Output Total 1401 50 Balance -351.44 461.73 - Medications Medications: Current Medications Acetaminophen (Tylenol 325mg Tab) 650 mg PO Q6 PRN PRN Reason: Fever >100.4 F Last Admin: 07/15/18 04:35 Dose: 650 mg Albuterol/Ipratropium (Duoneb 3 Mg/0.5 Mg (3 Ml) Ud) 3 ml INH RQ6 [facility] Last Admin: 07/17/18 08:01 Dose: 3 ml Aspirin (Aspirin Chewable) 81 mg GT DAILY [facility] Last Admin: 07/17/18 09:29 Dose: 81 mg Clopidogrel Bisulfate (Plavix) 75 mg PO DAILY [facility] Last Admin: 07/17/18 09:15 Dose: 75 mg Ergocalciferol (Drisdol 50,000 Intl Units Cap) 1 cap PO Q7D [facility] Last Admin: 07/11/18 14:50 Dose: 1 cap Heparin Sodium/Sodium Chloride (Heparin 52884 Units/250ml 1/2 Normal Saline) 25,000 units in 250 mls @ 10.207 mls/hr IV .Q24H PRN; Protocol PRN Reason: PROTOCOL Last Titration: 07/17/18 09:45 Dose: 0 units/kg/hr, 0 mls/hr Vancomycin HCl 1 gm/ Sodium (Chloride) 250 mls @ 166.7 mls/hr IVPB Q24H [facility]; Protocol Last Admin: 07/16/18 17:13 Dose: 166.7 mls/hr Ceftriaxone Sodium 2 gm/ (Sodium Chloride) 100 mls @ 100 mls/hr IVPB Q12H [facility]; Protocol Last Admin: 07/17/18 04:37 Dose: 100 mls/hr Dexmedetomidine HCl 200 mcg/ (Sodium Chloride) 50 mls @ 2.91 mls/hr IV TITR PRN; Protocol PRN Reason: Sedation Last Admin: 07/17/18 02:07 Dose: 0.2 mcg/kg/hr, 2.91 mls/hr Insulin Aspart (Novolog) 0 unit SC Q6 [facility]; Protocol Last Admin: 07/17/18 05:50 Dose: 6 units Insulin Glargine (Lantus) 20 unit SC Q12 [facility] Last Admin: 07/17/18 10:04 Dose: 20 u Lactobacillus Acidophilus (Bacid Acidophilus) 1 cap PO Q12H [facility] Last Admin: 07/17/18 08:55 Dose: 1 cap Methimazole (Tapazole) 10 mg PO TID [facility] Last Admin: 07/17/18 09:15 Dose: 10 mg Pantoprazole Sodium (Protonix Susp) 40 mg PO BID [facility] Last Admin: 07/17/18 09:15 Dose: 40 mg Propranolol HCl (Inderal) 5 mg PO TID [facility] Last Admin: 07/17/18 09:15 Dose: 5 mg Rosuvastatin Calcium (Crestor) 2.5 mg PO HS [facility] Last Admin: 07/16/18 21:15 Dose: 2.5 mg - Labs Labs: 07/17/18 05:57 07/17/18 05:57 PT 13.6 SECONDS (9.7-12.2) H 07/16/18 06:10 INR 1.2 07/16/18 06:10 APTT 43 SECONDS (21-34) H D 07/17/18 05:57 - Constitutional Appears: Chronically Ill - Head Exam Head Exam: NORMOCEPHALIC - Eye Exam Eye Exam: PERRL - ENT Exam ENT Exam: Mucous Membranes Dry - Neck Exam Neck Exam: absent: Lymphadenopathy - Respiratory Exam Respiratory Exam: Decreased Breath Sounds - Cardiovascular Exam Cardiovascular Exam: REGULAR RHYTHM - GI/Abdominal Exam GI & Abdominal Exam: Distended - Rectal Exam Rectal Exam: Deferred Assessment and Plan (1) NEHA (acute kidney injury) Status: Acute (2) Acute renal failure Status: Acute (3) Acute respiratory failure Status: Acute (4) Aspiration pneumonia Status: Acute (5) Septic shock Status: Acute (6) Urinary tract infection Status: Acute (7) Diabetes mellitus Status: Chronic
--- NOTE | 2018-07-17 12:15 | CP.PCM.PN ---
Subjective - Date & Time of Evaluation Date of Evaluation: 07/17/18 Time of Evaluation: 12:14 - Subjective Subjective: Nephrology Consultation Note Assessment: critical Acute Kidney Injury (N17.9) likely due to ATN, r/o GN (so far w/up emery) septic shock, acute respi failure, UTI/aspiration pneumonitis and pulm edemaf Diabetic chronic Kidney Disease (E11.22) Hypertensive Chronic Kidney Disease (I12.9) Chronic Kidney Disease (N18.3) Stage 3 with 740 mg proteinuria (R80.9) likely due to DM/HTN, baseline cr 1.2 Anemia (D64.9), Hyperphosphatemia (E83.39), Hypocalcemia Thyroid nodules with hyperthyroidism. V tach and cardiac arrest hypokalemia, hypomag, hypophos apical thrombus with sys CHF LVEf 40% Plan no further need of dialysis. renal function stable Maintain hemodynamics stable. Avoid hypotension. Patient not on ACEI/ARB due to recent NEHA Monitor Input/Output, daily weights and renal function with basic metabolic panel started weekly Vit D supplement lytes as needed free water flushes with tube feed 250 mL 3 times a day diuresis with lasix work up for adrenal adenoma as outpt. work up for suppressed TSH as per primary team/endocrine Dose meds/antibiotics for reduced GFR. Avoid fleets enema/magnesium based laxatives. Avoid nephrotoxins/NSAIDs/ iodinated contrast (unless needed emergently) Glycemic control Further work up for as per primary team Thanks for allowing me to participate in care of your patient. Will follow further PRN basis. Please call if any Qs. d/w family and team. Dr Enrique Richards Office: [phone] Subjective: Noted events overnight. Patients intubated/sedated. off levophed s/p V Tach and cardiac arrest Physical Examination: General Appearance: in no acute respiratory distress, ill appearing Vitals reviewed and noted as below Head; Atraumatic, normocephalic ENT: orally intubated Neck; supple no lymphadenopathy, no thyromegaly or bruit Lungs: Normal respiratory rate/effort. Breath sounds bilateral with basal rales Heart: Increased rate. s1s2 normal. No rub or gallop. Extremities: no pedal edema. No varicose veins Neurological: Patient is sedated Skin: Warm and dry. Normal turgor. No rash. Palpitation: Normal elasticity for age Abdomen: Abdomen is soft. Bowel sounds +. There is no abdominal tenderness, no guarding/rigidity no organomegaly Psych: unable MSK: no joint tenderness or swelling. Digits and nails normal, no deformity : kidney or bladder not palpable. has mcintyre + Labs/imaging reviewed. Past medical history, past surgical history, family history, social history, allergy reviewed and noted as below Family hx: no hx of CKD. Rest non-contributory work up: 1.4 mm left adrenal adenoma uA 2+ protein 2+ blood c3/c4 normal. HIV/Hep B and C neg TSH <0.02 Objective - Vital Signs/Intake and Output Vital Signs (last 24 hours): Temp Pulse Resp BP Pulse Ox 97.8 F 67 12 118/55 L 97 07/17/18 08:00 07/17/18 11:28 07/17/18 11:28 07/17/18 11:28 07/17/18 11:28 Intake and Output: 07/17/18 07/17/18 06:59 18:59 Intake Total 1049.56 511.73 Output Total 1401 50 Balance -351.44 461.73 - Medications Medications: Current Medications Acetaminophen (Tylenol 325mg Tab) 650 mg PO Q6 PRN PRN Reason: Fever >100.4 F Last Admin: 07/15/18 04:35 Dose: 650 mg Albuterol/Ipratropium (Duoneb 3 Mg/0.5 Mg (3 Ml) Ud) 3 ml INH RQ6 [facility] Last Admin: 07/17/18 08:01 Dose: 3 ml Aspirin (Aspirin Chewable) 81 mg GT DAILY [facility] Last Admin: 07/17/18 09:29 Dose: 81 mg Clopidogrel Bisulfate (Plavix) 75 mg PO DAILY [facility] Last Admin: 07/17/18 09:15 Dose: 75 mg Ergocalciferol (Drisdol 50,000 Intl Units Cap) 1 cap PO Q7D [facility] Last Admin: 07/11/18 14:50 Dose: 1 cap Heparin Sodium/Sodium Chloride (Heparin 06311 Units/250ml 1/2 Normal Saline) 25,000 units in 250 mls @ 10.207 mls/hr IV .Q24H PRN; Protocol PRN Reason: PROTOCOL Last Titration: 07/17/18 09:45 Dose: 0 units/kg/hr, 0 mls/hr Vancomycin HCl 1 gm/ Sodium (Chloride) 250 mls @ 166.7 mls/hr IVPB Q24H [facility]; Protocol Last Admin: 07/16/18 17:13 Dose: 166.7 mls/hr Ceftriaxone Sodium 2 gm/ (Sodium Chloride) 100 mls @ 100 mls/hr IVPB Q12H [facility]; Protocol Last Admin: 07/17/18 04:37 Dose: 100 mls/hr Dexmedetomidine HCl 200 mcg/ (Sodium Chloride) 50 mls @ 2.91 mls/hr IV TITR PRN; Protocol PRN Reason: Sedation Last Admin: 07/17/18 02:07 Dose: 0.2 mcg/kg/hr, 2.91 mls/hr Insulin Aspart (Novolog) 0 unit SC Q6 [facility]; Protocol Last Admin: 07/17/18 11:56 Dose: 8 units Insulin Glargine (Lantus) 20 unit SC Q12 [facility] Last Admin: 07/17/18 10:04 Dose: 20 u Lactobacillus Acidophilus (Bacid Acidophilus) 1 cap PO Q12H [facility] Last Admin: 07/17/18 08:55 Dose: 1 cap Methimazole (Tapazole) 10 mg PO TID [facility] Last Admin: 07/17/18 09:15 Dose: 10 mg Pantoprazole Sodium (Protonix Susp) 40 mg PO BID [facility] Last Admin: 07/17/18 09:15 Dose: 40 mg Propranolol HCl (Inderal) 5 mg PO TID [facility] Last Admin: 07/17/18 09:15 Dose: 5 mg Rosuvastatin Calcium (Crestor) 2.5 mg PO HS [facility] Last Admin: 07/16/18 21:15 Dose: 2.5 mg - Labs Labs: 07/17/18 05:57 07/17/18 05:57 PT 13.6 SECONDS (9.7-12.2) H 07/16/18 06:10 INR 1.2 07/16/18 06:10 APTT 43 SECONDS (21-34) H D 07/17/18 05:57
--- NOTE | 2018-07-17 12:52 | CP.PCM.CON ---
History of Present Illness - History of Present Illness History of Present Illness: Palliative consult requested by Doctor Hinkle for goals of care discussion and family support Patient is a 52 yo female admitted from home with persistent, no productive cough, decreased appetite and multiple episodes of vomiting. patient was treated at the hospital about 4 days prior to this admission, for similar symptoms. CT chest significant for B/L pleural effusion and pulmonary venous congestion.. IV antibiotics and nebulizer treatment started. On 07/10/18 ELECTROPHYSIOLOGY TECHNOLOGIST called for SVT which convert to VT. Patient resuscitated and i ntubated on the field and transferred to ICU. Thankfully, patient's condition has improved under ICU care and weaning trial attempted. Patient did not tolerate it as pulmonary perfusion has worsened according to CXR. Thoracentesis planned for today. PMH: elevated cholesterol Soc. Hx: , no children, no Hx of alcohol or drug abuse, no Hx of smoking Fam. Hx : denied Review of Systems - Review of Systems Systems not reviewed;Unavailable: Intubated All systems: reviewed and no additional remarkable complaints except Review of Systems: ROS unobtainable from patient due to intubation. Per nursing, paient had no overnight events and is to undergo thoracentesis today. Past Patient History - Tetanus Immunizations Tetanus Immunization: Unknown - Past Medical History & Family History Past Family History: Reviewed and not pertinent - Past Social History Smoking Status: Never Smoked Alcohol: None Drugs: Denies Home Situation {Lives}: With Family - CARDIAC Hx Hypercholesterolemia: Yes - PULMONARY Hx Respiratory Disorders: No - NEUROLOGICAL Hx Neurological Disorder: No - HEENT Hx HEENT Problems: No - RENAL Hx Chronic Kidney Disease: No - ENDOCRINE/METABOLIC Hx Endocrine Disorders: Yes Hx Diabetes Mellitus Type 1: Yes - HEMATOLOGICAL/ONCOLOGICAL Hx Blood Disorders: No - INTEGUMENTARY Hx Dermatological Problems: No - MUSCULOSKELETAL/RHEUMATOLOGICAL Hx Musculoskeletal Disorders: No Hx Falls: No - GASTROINTESTINAL Hx Gastrointestinal Disorders: No - GENITOURINARY/GYNECOLOGICAL Hx Genitourinary Disorders: No - PSYCHIATRIC Hx Substance Use: No - SURGICAL HISTORY Other/Comment: removal of ovaries - ANESTHESIA Hx Anesthesia: Yes Hx Anesthesia Reactions: No Hx Malignant Hyperthermia: No Meds Allergies/Adverse Reactions: Allergies Allergy/AdvReac Type Severity Reaction Status Date / Time No Known Allergies Allergy Unverified 07/03/18 23:36 - Medications Medications: Current Medications Acetaminophen (Tylenol 325mg Tab) 650 mg PO Q6 PRN PRN Reason: Fever >100.4 F Last Admin: 07/15/18 04:35 Dose: 650 mg Albuterol/Ipratropium (Duoneb 3 Mg/0.5 Mg (3 Ml) Ud) 3 ml INH RQ6 [facility] Last Admin: 07/17/18 08:01 Dose: 3 ml Aspirin (Aspirin Chewable) 81 mg GT DAILY [facility] Last Admin: 07/17/18 09:29 Dose: 81 mg Clopidogrel Bisulfate (Plavix) 75 mg PO DAILY [facility] Last Admin: 07/17/18 09:15 Dose: 75 mg Ergocalciferol (Drisdol 50,000 Intl Units Cap) 1 cap PO Q7D [facility] Last Admin: 07/11/18 14:50 Dose: 1 cap Heparin Sodium/Sodium Chloride (Heparin 86475 Units/250ml 1/2 Normal Saline) 25,000 units in 250 mls @ 10.207 mls/hr IV .Q24H PRN; Protocol PRN Reason: PROTOCOL Last Titration: 07/17/18 09:45 Dose: 0 units/kg/hr, 0 mls/hr Vancomycin HCl 1 gm/ Sodium (Chloride) 250 mls @ 166.7 mls/hr IVPB Q24H [facility]; Protocol Last Admin: 07/16/18 17:13 Dose: 166.7 mls/hr Ceftriaxone Sodium 2 gm/ (Sodium Chloride) 100 mls @ 100 mls/hr IVPB Q12H [facility]; Protocol Last Admin: 07/17/18 04:37 Dose: 100 mls/hr Dexmedetomidine HCl 200 mcg/ (Sodium Chloride) 50 mls @ 2.91 mls/hr IV TITR PRN; Protocol PRN Reason: Sedation Last Admin: 07/17/18 02:07 Dose: 0.2 mcg/kg/hr, 2.91 mls/hr Insulin Aspart (Novolog) 0 unit SC Q6 [facility]; Protocol Last Admin: 07/17/18 11:56 Dose: 8 units Insulin Glargine (Lantus) 20 unit SC Q12 [facility] Last Admin: 07/17/18 10:04 Dose: 20 u Lactobacillus Acidophilus (Bacid Acidophilus) 1 cap PO Q12H [facility] Last Admin: 07/17/18 08:55 Dose: 1 cap Methimazole (Tapazole) 10 mg PO TID [facility] Last Admin: 07/17/18 09:15 Dose: 10 mg Pantoprazole Sodium (Protonix Susp) 40 mg PO BID [facility] Last Admin: 07/17/18 09:15 Dose: 40 mg Propranolol HCl (Inderal) 5 mg PO TID [facility] Last Admin: 07/17/18 09:15 Dose: 5 mg Rosuvastatin Calcium (Crestor) 2.5 mg PO HS [facility] Last Admin: 07/16/18 21:15 Dose: 2.5 mg Physical Exam - Constitutional Appears: In Acute Distress - Head Exam Head Exam: ATRAUMATIC, NORMAL INSPECTION, NORMOCEPHALIC - Eye Exam Eye Exam: EOMI, Normal appearance, PERRL Pupil Exam: NORMAL ACCOMODATION, PERRL - ENT Exam ENT Exam: Mucous Membranes Moist, Normal Exam - Neck Exam Neck exam: Positive for: Normal Inspection - Respiratory Exam Additional comments: Intubated, worsening pleural effusion per CXR - Cardiovascular Exam Cardiovascular Exam: Tachycardia - GI/Abdominal Exam GI & Abdominal Exam: Hyperactive Bowel Sounds - Rectal Exam Rectal Exam: Deferred - Extremities Exam Extremities exam: Positive for: pedal edema - Back Exam Back exam: NORMAL INSPECTION - Neurological Exam Neurological exam: Alert - Psychiatric Exam Psychiatric exam: Normal Affect, Normal Mood - Skin Skin Exam: Dry, Intact, Normal Color, Warm Results - Vital Signs Recent Vital Signs: Last Vital Signs Temp 98.1 F 07/17/18 12:00 Pulse 71 07/17/18 12:00 Resp 14 07/17/18 12:00 BP 118/55 L 07/17/18 11:28 Pulse Ox 98 07/17/18 12:00 - Labs Result Diagrams: 07/17/18 05:57 07/17/18 05:57 Labs: Laboratory Results - last 24 hr 07/16/18 07/16/18 07/16/18 13:26 13:35 13:46 WBC RBC Hgb Hct MCV MCH MCHC RDW Plt Count MPV Neut % (Auto) Lymph % (Auto) Allen % (Auto) Eos % (Auto) Baso % (Auto) Neut # (Auto) Lymph # (Auto) Allen # (Auto) Eos # (Auto) Baso # (Auto) Neutrophils % (Manual) Band Neutrophils % Lymphocytes % (Manual) Monocytes % (Manual) Platelet Estimate Polychromasia Hypochromasia (manual) Anisocytosis (manual) APTT 90 H D Puncture Site pCO2 pO2 HCO3 ABG pH ABG Total CO2 ABG O2 Saturation ABG Base Excess ABG Hemoglobin ABG Carboxyhemoglobin POC ABG HHb (Measured) ABG Methemoglobin Kevon Test A-a O2 Difference Respiratory Index Hgb O2 Saturation Vent Mode Mechanical Rate FiO2 Tidal Volume PEEP Sodium Potassium Chloride Carbon Dioxide Anion Gap BUN Creatinine Est GFR ( Amer) Est GFR (Non-Af Amer) POC Glucose (mg/dL) Random Glucose Calcium Phosphorus Magnesium Total Bilirubin AST ALT Alkaline Phosphatase Total Protein Albumin Globulin Albumin/Globulin Ratio Procalcitonin Vancomycin Trough 14.7 H C. difficile Ag & Toxin Negative 07/16/18 07/16/18 07/16/18 17:44 20:11 23:50 WBC RBC Hgb Hct MCV MCH MCHC RDW Plt Count MPV Neut % (Auto) Lymph % (Auto) Allen % (Auto) Eos % (Auto) Baso % (Auto) Neut # (Auto) Lymph # (Auto) Allen # (Auto) Eos # (Auto) Baso # (Auto) Neutrophils % (Manual) Band Neutrophils % Lymphocytes % (Manual) Monocytes % (Manual) Platelet Estimate Polychromasia Hypochromasia (manual) Anisocytosis (manual) APTT 54 H D Puncture Site pCO2 pO2 HCO3 ABG pH ABG Total CO2 ABG O2 Saturation ABG Base Excess ABG Hemoglobin ABG Carboxyhemoglobin POC ABG HHb (Measured) ABG Methemoglobin Kevon Test A-a O2 Difference Respiratory Index Hgb O2 Saturation Vent Mode Mechanical Rate FiO2 Tidal Volume PEEP Sodium Potassium Chloride Carbon Dioxide Anion Gap BUN Creatinine Est GFR ( Amer) Est GFR (Non-Af Amer) POC Glucose (mg/dL) 329 H 303 H Random Glucose Calcium Phosphorus Magnesium Total Bilirubin AST ALT Alkaline Phosphatase Total Protein Albumin Globulin Albumin/Globulin Ratio Procalcitonin Vancomycin Trough C. difficile Ag & Toxin 07/17/18 07/17/18 07/17/18 04:55 05:19 05:57 WBC 9.3 RBC 3.39 L Hgb 10.3 L Hct 31.0 L MCV 91.4 MCH 30.3 MCHC 33.1 RDW 16.3 H Plt Count 142 MPV 10.3 Neut % (Auto) 78.9 H Lymph % (Auto) 8.4 L Allen % (Auto) 12.4 H Eos % (Auto) 0.0 Baso % (Auto) 0.3 Neut # (Auto) 7.3 H Lymph # (Auto) 0.8 L Allen # (Auto) 1.2 H Eos # (Auto) 0.0 Baso # (Auto) 0.0 Neutrophils % (Manual) 84 H Band Neutrophils % 2 Lymphocytes % (Manual) 9 L Monocytes % (Manual) 5 Platelet Estimate Normal Polychromasia Slight Hypochromasia (manual) Slight Anisocytosis (manual) Slight APTT Puncture Site L rad pCO2 39 pO2 67 L HCO3 25.5 ABG pH 7.42 ABG Total CO2 26.5 ABG O2 Saturation 96.3 ABG Base Excess 0.8 ABG Hemoglobin 10.1 L ABG Carboxyhemoglobin 1.7 H POC ABG HHb (Measured) 3.6 ABG Methemoglobin 0.6 Kevon Test Pos A-a O2 Difference 241.0 Respiratory Index 3.6 Hgb O2 Saturation 94.2 L Vent Mode Prvc Mechanical Rate 12 FiO2 50.0 Tidal Volume 450 PEEP 5 Sodium Potassium Chloride Carbon Dioxide Anion Gap BUN Creatinine Est GFR ( Amer) Est GFR (Non-Af Amer) POC Glucose (mg/dL) 271 H Random Glucose Calcium Phosphorus Magnesium Total Bilirubin AST ALT Alkaline Phosphatase Total Protein Albumin Globulin Albumin/Globulin Ratio Procalcitonin Vancomycin Trough C. difficile Ag & Toxin 07/17/18 07/17/18 07/17/18 05:57 05:57 05:57 WBC RBC Hgb Hct MCV MCH MCHC RDW Plt Count MPV Neut % (Auto) Lymph % (Auto) Allen % (Auto) Eos % (Auto) Baso % (Auto) Neut # (Auto) Lymph # (Auto) Allen # (Auto) Eos # (Auto) Baso # (Auto) Neutrophils % (Manual) Band Neutrophils % Lymphocytes % (Manual) Monocytes % (Manual) Platelet Estimate Polychromasia Hypochromasia (manual) Anisocytosis (manual) APTT 43 H D Puncture Site pCO2 pO2 HCO3 ABG pH ABG Total CO2 ABG O2 Saturation ABG Base Excess ABG Hemoglobin ABG Carboxyhemoglobin POC ABG HHb (Measured) ABG Methemoglobin Kevon Test A-a O2 Difference Respiratory Index Hgb O2 Saturation Vent Mode Mechanical Rate FiO2 Tidal Volume PEEP Sodium 147 Potassium 3.8 Chloride 113 H Carbon Dioxide 27 Anion Gap 11 BUN 39 H Creatinine 1.0 Est GFR ( Amer) > 60 Est GFR (Non-Af Amer) 58 POC Glucose (mg/dL) Random Glucose 266 H Calcium 7.8 L Phosphorus 3.0 Magnesium 1.9 Total Bilirubin 0.3 AST 25 ALT 57 H Alkaline Phosphatase 108 Total Protein 5.1 L Albumin 2.4 L Globulin 2.7 Albumin/Globulin Ratio 0.9 L Procalcitonin 2.96 H Vancomycin Trough C. difficile Ag & Toxin 07/17/18 11:52 WBC RBC Hgb Hct MCV MCH MCHC RDW Plt Count MPV Neut % (Auto) Lymph % (Auto) Allen % (Auto) Eos % (Auto) Baso % (Auto) Neut # (Auto) Lymph # (Auto) Allen # (Auto) Eos # (Auto) Baso # (Auto) Neutrophils % (Manual) Band Neutrophils % Lymphocytes % (Manual) Monocytes % (Manual) Platelet Estimate Polychromasia Hypochromasia (manual) Anisocytosis (manual) APTT Puncture Site pCO2 pO2 HCO3 ABG pH ABG Total CO2 ABG O2 Saturation ABG Base Excess ABG Hemoglobin ABG Carboxyhemoglobin POC ABG HHb (Measured) ABG Methemoglobin Kevon Test A-a O2 Difference Respiratory Index Hgb O2 Saturation Vent Mode Mechanical Rate FiO2 Tidal Volume PEEP Sodium Potassium Chloride Carbon Dioxide Anion Gap BUN Creatinine Est GFR ( Amer) Est GFR (Non-Af Amer) POC Glucose (mg/dL) 328 H Random Glucose Calcium Phosphorus Magnesium Total Bilirubin AST ALT Alkaline Phosphatase Total Protein Albumin Globulin Albumin/Globulin Ratio Procalcitonin Vancomycin Trough C. difficile Ag & Toxin Assessment & Plan - Assessment and Plan (Free Text) Assessment: Palliative consult Full Code, there is no advance directive on chart, PPS 10% I reviewed Medical records, all diagnostic studies, examined patient in the bed. Patient is intubated, alert, able to make eye contacts and grimaces her eyes. I told her how much she has improved and she attempted to smile. Breath sounds diminished B/L. O2Sat 95 %.Thoracentesis planned for today. Patient is off pressors. Bp 118/55, HR 71. Abdomen soft, active bowel sounds, per nursing patient had diarrhea yesterday. Patient is able to freely move upper and lower extremities. Yeast infection in sputum. Rocephin and Vanco IV on board. patient is on Heparin and Plavix. I spoke to patient's on Tuesday and he supposed to come to ICU and meet with me, but he did not. I will try to schedule meeting with patient's for today. Impression * Acute respiratory distress post OR, on MV support * More alert today and able to make eye contacts * Hypotension * Limited mobility * Failed weaning trial, for thoracentesis today * Sputum infection Suggestion * Continue care as per ICU team * Promote skin integrity, turn and reposition Q 2 hr * Continue weaning trials as tolerated * Maintain stable BP I will fallow up with patient and her when he comes in and offer support.
--- NOTE | 2018-07-17 14:13 | RAD ---
Date of service: 07/14/2018 PROCEDURE: CHEST RADIOGRAPH, 1 VIEW HISTORY: vent COMPARISON: 07/13/2018. FINDINGS: Endotracheal tube terminates 2.2 cm proximal to the key. The nasogastric tube terminates in the stomach. LUNGS: The lungs are well inflated and clear. PLEURA: No pneumothorax or pleural fluid seen. CARDIOVASCULAR: Normal. OSSEOUS STRUCTURES: No significant abnormalities. VISUALIZED UPPER ABDOMEN: Normal. OTHER FINDINGS: None. IMPRESSION: No acute findings. Stable position of support tubes.
--- NOTE | 2018-07-17 15:41 | CP.CCUPN ---
CCU Subjective - Physician Review Subjective (Free Text): Resident Critical Care Progress Note Patient examined at bedside. No acute events overnight. Patient is intubated, much more alert today. Follows commands. Critical Care Time Spent (in minutes): 35 CCU Objective - Vital Signs / Intake & Output Vital Signs (Last 4 hours): Vital Signs Temp Pulse Resp BP Pulse Ox 07/17/18 15:00 71 12 100 07/17/18 14:28 81 16 127/62 100 07/17/18 14:00 80 13 100 07/17/18 13:28 84 13 130/62 100 07/17/18 13:00 81 15 100 07/17/18 12:28 78 13 134/64 99 07/17/18 12:00 98.1 F 71 14 99 Intake and Output (Last 8hrs): Intake & Output 07/17/18 07/17/18 07/17/18 06:59 14:59 22:59 Intake Total 733.04 587.83 70.3 Output Total 1200 700 Balance -466.96 -112.17 70.3 Weight 127 lb 8 oz Intake: IV 200 60 Intake, IV Amount 173.04 57.83 10.3 Right Hand 49.84 34.63 7.4 Right Medial Port 23.2 23.2 2.9 Subclavian Right Proximal Port 100 Subclavian Oral 210 30 Tube Feeding 360 260 30 Output: Urine 1200 700 Urine, Voided 1200 350 Other: # Voids Urine, Voided 0 0 # Bowel Movements 2 0 0 - Physical Exam Head: Positive for: Atraumatic, Normocephalic Pupils: Positive for: PERRL. Negative for: Sluggish, Pinpoint Extroacular Muscles: Positive for: EOMI (not following commands for EOMI testing, but is able to track staff across room with eyes without appreciable issue), Other. Negative for: Gaze Palsy Conjunctiva: Positive for: Normal. Negative for: Injected, Icteric Mouth: Positive for: Moist Mucous Membranes, Other (ETT in place) Nose (External): Positive for: Atraumatic. Negative for: Abrasion, Contusion, Laceration Nose (Internal): Positive for: No Active Bleeding. Negative for: Epistaxis Neck: Positive for: Normal Range of Motion (passive and active (sometimes turning head to track across room)), Trachea Midline. Negative for: JVD Respiratory/Chest: Positive for: Good Air Exchange, Rhonchi (mild ronchi in bilateral bases), Other (intubated and ventilated). Negative for: Wheezes, Rales Cardiovascular: Positive for: Normal S1, S2, Peripheal Pulses Present (+2 radials), Other (alternates between regular rate in 80's and tachycardic up to 130's, appears regular rhythm during tachy phases). Negative for: Regular Rate and Rhythm, Tachycardic, Bradycardic Abdomen: Positive for: Normal Bowel Sounds. Negative for: Tenderness, Distention Upper Extremity: Positive for: Normal Inspection, NORMAL PULSES. Negative for: Cyanosis, Edema Lower Extremity: Positive for: Normal Inspection. Negative for: Edema, CALF TENDERNESS Neurological: Positive for: Other (weaning from sedation, intermittently opens eyes and tracks staff across room, but minimal spontaneous movements, not following verbal or pantomimed commands) Skin: Positive for: Warm, Dry, Normal Color Psychiatric: Positive for: Other (intermittently awake and alert, but not following commands, unable to assess mood/anxiety/mentation) - Medications Active Medications: Active Medications Generic Name Dose Route Start Last Admin Trade Name Freq PRN Reason Stop Dose Admin Acetaminophen 650 mg 07/12/18 15:57 07/15/18 04:35 Tylenol 325mg Tab PO 650 mg Q6 PRN Administration Fever >100.4 F Albuterol/Ipratropium 3 ml 07/14/18 20:00 07/17/18 13:39 Duoneb 3 Mg/0.5 Mg (3 Ml) Ud INH 3 ml RQ6 MANOLO Administration Apixaban 2.5 mg 07/17/18 18:00 Eliquis PO BID MANOLO Aspirin 81 mg 07/17/18 10:00 07/17/18 09:29 Aspirin Chewable GT 81 mg DAILY MANOLO Administration Clopidogrel Bisulfate 75 mg 07/14/18 10:00 07/17/18 09:15 Plavix PO 75 mg DAILY MANOLO Administration Ergocalciferol 1 cap 07/11/18 12:45 07/11/18 14:50 Drisdol 50,000 Intl Units Cap PO 1 cap Q7D MANOLO Administration Furosemide 20 mg 07/17/18 18:00 Lasix IVP BID MANOLO Heparin Sodium/Sodium Chloride 25,000 units in 250 mls @ 10.207 mls/hr 07/11/18 09:20 07/17/18 13:22 Heparin 52701 Units/250ml 1/2 Normal Saline IV 07/17/18 19:00 13 units/kg/hr .Q24H PRN 7.372 mls/hr PROTOCOL Titration Protocol 18 UNITS/KG/HR Vancomycin HCl 1 gm/ Sodium 250 mls @ 166.7 mls/hr 07/14/18 18:00 07/16/18 17:13 Chloride IVPB 166.7 mls/hr Q24H MANOLO Administration Protocol Ceftriaxone Sodium 2 gm/ 100 mls @ 100 mls/hr 07/14/18 17:00 07/17/18 04:37 Sodium Chloride IVPB 100 mls/hr Q12H MANOLO Administration Protocol Dexmedetomidine HCl 200 mcg/ 50 mls @ 2.91 mls/hr 07/15/18 19:55 07/17/18 02:07 Sodium Chloride IV 0.2 mcg/kg/hr TITR PRN 2.91 mls/hr Sedation Administration Protocol 0.2 MCG/KG/HR Insulin Aspart 0 unit 07/11/18 08:28 07/17/18 11:56 Novolog SC 8 units Q6 MANOLO Administration Protocol Insulin Glargine 20 unit 07/17/18 09:46 07/17/18 10:04 Lantus SC 20 u Q12 MANOLO Administration Lactobacillus Acidophilus 1 cap 07/08/18 20:00 07/17/18 08:55 Bacid Acidophilus PO 1 cap Q12H MANOLO Administration Methimazole 10 mg 07/11/18 10:00 07/17/18 13:10 Tapazole PO 10 mg TID MANOLO Administration Pantoprazole Sodium 40 mg 07/11/18 10:00 07/17/18 09:15 Protonix Susp PO 40 mg BID MANOLO Administration Propranolol HCl 5 mg 07/16/18 10:00 07/17/18 13:10 Inderal PO 5 mg TID MANOLO Administration Rosuvastatin Calcium 2.5 mg 07/13/18 22:00 07/16/18 21:15 Crestor PO 2.5 mg HS MANOLO Administration - Patient Studies Lab Studies: Microbiology Studies 07/14/18 13:01 Blood Culture - Preliminary Blood NO GROWTH AFTER 3 DAYS 07/14/18 13:01 Blood Culture - Preliminary Blood NO GROWTH AFTER 3 DAYS Lab Studies 07/17/18 07/17/18 07/17/18 Range/Units 11:52 05:57 05:57 WBC (4.8-10.8) K/uL RBC (3.80-5.20) Mil/uL Hgb (11.0-16.0) g/dL Hct (34.0-47.0) % MCV (81.0-99.0) fL MCH (27.0-31.0) pg MCHC (33.0-37.0) g/dL RDW (11.5-14.5) % Plt Count (130-400) K/uL MPV (7.2-11.7) fL Neut % (Auto) (50.0-75.0) % Lymph % (Auto) (20.0-40.0) % [place] % (Auto) (0.0-10.0) % Eos % (Auto) (0.0-4.0) % Baso % (Auto) (0.0-2.0) % Neut # (Auto) (1.8-7.0) K/uL Lymph # (Auto) (1.0-4.3) K/uL [place] # (Auto) (0.0-0.8) K/uL Eos # (Auto) (0.0-0.7) K/uL Baso # (Auto) (0.0-0.2) K/uL Neutrophils % (Manual) (50-75) % Band Neutrophils % (0-2) % Lymphocytes % (Manual) (20-40) % Monocytes % (Manual) (0-10) % Platelet Estimate (NORMAL) Polychromasia Hypochromasia (manual) Anisocytosis (manual) APTT 43 H D (21-34) SECONDS Puncture Site pCO2 (35-45) mm/Hg pO2 (80-100) mm/Hg HCO3 (21-28) mmol/L ABG pH (7.35-7.45) ABG Total CO2 (22-28) mmol/L ABG O2 Saturation (95-98) % ABG Base Excess (-2.0-3.0) mmol/L ABG Hemoglobin (11.7-17.4) g/dL ABG Carboxyhemoglobin (0.5-1.5) % POC ABG HHb (Measured) (0.0-5.0) % ABG Methemoglobin (0.0-3.0) % Kevon Test A-a O2 Difference mm/Hg Respiratory Index Hgb O2 Saturation (95.0-98.0) % Vent Mode Mechanical Rate FiO2 % Tidal Volume PEEP Sodium (132-148) mmol/L Potassium (3.6-5.2) mmol/L Chloride (98-107) mmol/L Carbon Dioxide (22-30) mmol/L Anion Gap (10-20) BUN (7-17) mg/dL Creatinine (0.7-1.2) mg/dL Est GFR ( Amer) Est GFR (Non-Af Amer) POC Glucose (mg/dL) 328 H (65-110) mg/dL Random Glucose (65-105) mg/dL Calcium (8.6-10.4) mg/dl Phosphorus (2.5-4.5) mg/dL Magnesium (1.6-2.3) mg/dL Total Bilirubin (0.2-1.3) mg/dL AST (14-36) U/L ALT (9-52) U/L Alkaline Phosphatase (38-126) U/L Total Protein (6.3-8.3) g/dL Albumin (3.5-5.0) g/dL Globulin (2.2-3.9) gm/dL Albumin/Globulin Ratio (1.0-2.1) Procalcitonin 2.96 H (0.19-0.49) NG/ML 07/17/18 07/17/18 07/17/18 Range/Units 05:57 05:57 05:19 WBC 9.3 (4.8-10.8) K/uL RBC 3.39 L (3.80-5.20) Mil/uL Hgb 10.3 L (11.0-16.0) g/dL Hct 31.0 L (34.0-47.0) % MCV 91.4 (81.0-99.0) fL MCH 30.3 (27.0-31.0) pg MCHC 33.1 (33.0-37.0) g/dL RDW 16.3 H (11.5-14.5) % Plt Count 142 (130-400) K/uL MPV 10.3 (7.2-11.7) fL Neut % (Auto) 78.9 H (50.0-75.0) % Lymph % (Auto) 8.4 L (20.0-40.0) % [place] % (Auto) 12.4 H (0.0-10.0) % Eos % (Auto) 0.0 (0.0-4.0) % Baso % (Auto) 0.3 (0.0-2.0) % Neut # (Auto) 7.3 H (1.8-7.0) K/uL Lymph # (Auto) 0.8 L (1.0-4.3) K/uL [place] # (Auto) 1.2 H (0.0-0.8) K/uL Eos # (Auto) 0.0 (0.0-0.7) K/uL Baso # (Auto) 0.0 (0.0-0.2) K/uL Neutrophils % (Manual) 84 H (50-75) % Band Neutrophils % 2 (0-2) % Lymphocytes % (Manual) 9 L (20-40) % Monocytes % (Manual) 5 (0-10) % Platelet Estimate Normal (NORMAL) Polychromasia Slight Hypochromasia (manual) Slight Anisocytosis (manual) Slight APTT (21-34) SECONDS Puncture Site L rad pCO2 39 (35-45) mm/Hg pO2 67 L (80-100) mm/Hg HCO3 25.5 (21-28) mmol/L ABG pH 7.42 (7.35-7.45) ABG Total CO2 26.5 (22-28) mmol/L ABG O2 Saturation 96.3 (95-98) % ABG Base Excess 0.8 (-2.0-3.0) mmol/L ABG Hemoglobin 10.1 L (11.7-17.4) g/dL ABG Carboxyhemoglobin 1.7 H (0.5-1.5) % POC ABG HHb (Measured) 3.6 (0.0-5.0) % ABG Methemoglobin 0.6 (0.0-3.0) % Kevon Test Pos A-a O2 Difference 241.0 mm/Hg Respiratory Index 3.6 Hgb O2 Saturation 94.2 L (95.0-98.0) % Vent Mode Prvc Mechanical Rate 12 FiO2 50.0 % Tidal Volume 450 PEEP 5 Sodium 147 (132-148) mmol/L Potassium 3.8 (3.6-5.2) mmol/L Chloride 113 H (98-107) mmol/L Carbon Dioxide 27 (22-30) mmol/L Anion Gap 11 (10-20) BUN 39 H (7-17) mg/dL Creatinine 1.0 (0.7-1.2) mg/dL Est GFR ( Amer) > 60 Est GFR (Non-Af Amer) 58 POC Glucose (mg/dL) (65-110) mg/dL Random Glucose 266 H (65-105) mg/dL Calcium 7.8 L (8.6-10.4) mg/dl Phosphorus 3.0 (2.5-4.5) mg/dL Magnesium 1.9 (1.6-2.3) mg/dL Total Bilirubin 0.3 (0.2-1.3) mg/dL AST 25 (14-36) U/L ALT 57 H (9-52) U/L Alkaline Phosphatase 108 (38-126) U/L Total Protein 5.1 L (6.3-8.3) g/dL Albumin 2.4 L (3.5-5.0) g/dL Globulin 2.7 (2.2-3.9) gm/dL Albumin/Globulin Ratio 0.9 L (1.0-2.1) Procalcitonin (0.19-0.49) NG/ML 07/17/18 07/16/18 07/16/18 Range/Units 04:55 23:50 20:11 WBC (4.8-10.8) K/uL RBC (3.80-5.20) Mil/uL Hgb (11.0-16.0) g/dL Hct (34.0-47.0) % MCV (81.0-99.0) fL MCH (27.0-31.0) pg MCHC (33.0-37.0) g/dL RDW (11.5-14.5) % Plt Count (130-400) K/uL MPV (7.2-11.7) fL Neut % (Auto) (50.0-75.0) % Lymph % (Auto) (20.0-40.0) % [place] % (Auto) (0.0-10.0) % Eos % (Auto) (0.0-4.0) % Baso % (Auto) (0.0-2.0) % Neut # (Auto) (1.8-7.0) K/uL Lymph # (Auto) (1.0-4.3) K/uL [place] # (Auto) (0.0-0.8) K/uL Eos # (Auto) (0.0-0.7) K/uL Baso # (Auto) (0.0-0.2) K/uL Neutrophils % (Manual) (50-75) % Band Neutrophils % (0-2) % Lymphocytes % (Manual) (20-40) % Monocytes % (Manual) (0-10) % Platelet Estimate (NORMAL) Polychromasia Hypochromasia (manual) Anisocytosis (manual) APTT 54 H D (21-34) SECONDS Puncture Site pCO2 (35-45) mm/Hg pO2 (80-100) mm/Hg HCO3 (21-28) mmol/L ABG pH (7.35-7.45) ABG Total CO2 (22-28) mmol/L ABG O2 Saturation (95-98) % ABG Base Excess (-2.0-3.0) mmol/L ABG Hemoglobin (11.7-17.4) g/dL ABG Carboxyhemoglobin (0.5-1.5) % POC ABG HHb (Measured) (0.0-5.0) % ABG Methemoglobin (0.0-3.0) % Kevon Test A-a O2 Difference mm/Hg Respiratory Index Hgb O2 Saturation (95.0-98.0) % Vent Mode Mechanical Rate FiO2 % Tidal Volume PEEP Sodium (132-148) mmol/L Potassium (3.6-5.2) mmol/L Chloride (98-107) mmol/L Carbon Dioxide (22-30) mmol/L Anion Gap (10-20) BUN (7-17) mg/dL Creatinine (0.7-1.2) mg/dL Est GFR ( Amer) Est GFR (Non-Af Amer) POC Glucose (mg/dL) 271 H 303 H (65-110) mg/dL Random Glucose (65-105) mg/dL Calcium (8.6-10.4) mg/dl Phosphorus (2.5-4.5) mg/dL Magnesium (1.6-2.3) mg/dL Total Bilirubin (0.2-1.3) mg/dL AST (14-36) U/L ALT (9-52) U/L Alkaline Phosphatase (38-126) U/L Total Protein (6.3-8.3) g/dL Albumin (3.5-5.0) g/dL Globulin (2.2-3.9) gm/dL Albumin/Globulin Ratio (1.0-2.1) Procalcitonin (0.19-0.49) NG/ML 07/16/18 Range/Units 17:44 WBC (4.8-10.8) K/uL RBC (3.80-5.20) Mil/uL Hgb (11.0-16.0) g/dL Hct (34.0-47.0) % MCV (81.0-99.0) fL MCH (27.0-31.0) pg MCHC (33.0-37.0) g/dL RDW (11.5-14.5) % Plt Count (130-400) K/uL MPV (7.2-11.7) fL Neut % (Auto) (50.0-75.0) % Lymph % (Auto) (20.0-40.0) % [place] % (Auto) (0.0-10.0) % Eos % (Auto) (0.0-4.0) % Baso % (Auto) (0.0-2.0) % Neut # (Auto) (1.8-7.0) K/uL Lymph # (Auto) (1.0-4.3) K/uL [place] # (Auto) (0.0-0.8) K/uL Eos # (Auto) (0.0-0.7) K/uL Baso # (Auto) (0.0-0.2) K/uL Neutrophils % (Manual) (50-75) % Band Neutrophils % (0-2) % Lymphocytes % (Manual) (20-40) % Monocytes % (Manual) (0-10) % Platelet Estimate (NORMAL) Polychromasia Hypochromasia (manual) Anisocytosis (manual) APTT (21-34) SECONDS Puncture Site pCO2 (35-45) mm/Hg pO2 (80-100) mm/Hg HCO3 (21-28) mmol/L ABG pH (7.35-7.45) ABG Total CO2 (22-28) mmol/L ABG O2 Saturation (95-98) % ABG Base Excess (-2.0-3.0) mmol/L ABG Hemoglobin (11.7-17.4) g/dL ABG Carboxyhemoglobin (0.5-1.5) % POC ABG HHb (Measured) (0.0-5.0) % ABG Methemoglobin (0.0-3.0) % Kevon Test A-a O2 Difference mm/Hg Respiratory Index Hgb O2 Saturation (95.0-98.0) % Vent Mode Mechanical Rate FiO2 % Tidal Volume PEEP Sodium (132-148) mmol/L Potassium (3.6-5.2) mmol/L Chloride (98-107) mmol/L Carbon Dioxide (22-30) mmol/L Anion Gap (10-20) BUN (7-17) mg/dL Creatinine (0.7-1.2) mg/dL Est GFR ( Amer) Est GFR (Non-Af Amer) POC Glucose (mg/dL) 329 H (65-110) mg/dL Random Glucose (65-105) mg/dL Calcium (8.6-10.4) mg/dl Phosphorus (2.5-4.5) mg/dL Magnesium (1.6-2.3) mg/dL Total Bilirubin (0.2-1.3) mg/dL AST (14-36) U/L ALT (9-52) U/L Alkaline Phosphatase (38-126) U/L Total Protein (6.3-8.3) g/dL Albumin (3.5-5.0) g/dL Globulin (2.2-3.9) gm/dL Albumin/Globulin Ratio (1.0-2.1) Procalcitonin (0.19-0.49) NG/ML Laboratory Results - last 24 hr 07/16/18 07/16/18 07/16/18 17:44 20:11 23:50 WBC RBC Hgb Hct MCV MCH MCHC RDW Plt Count MPV Neut % (Auto) Lymph % (Auto) [place] % (Auto) Eos % (Auto) Baso % (Auto) Neut # (Auto) Lymph # (Auto) [place] # (Auto) Eos # (Auto) Baso # (Auto) Neutrophils % (Manual) Band Neutrophils % Lymphocytes % (Manual) Monocytes % (Manual) Platelet Estimate Polychromasia Hypochromasia (manual) Anisocytosis (manual) APTT 54 H D Puncture Site pCO2 pO2 HCO3 ABG pH ABG Total CO2 ABG O2 Saturation ABG Base Excess ABG Hemoglobin ABG Carboxyhemoglobin POC ABG HHb (Measured) ABG Methemoglobin Kevon Test A-a O2 Difference Respiratory Index Hgb O2 Saturation Vent Mode Mechanical Rate FiO2 Tidal Volume PEEP Sodium Potassium Chloride Carbon Dioxide Anion Gap BUN Creatinine Est GFR ( Amer) Est GFR (Non-Af Amer) POC Glucose (mg/dL) 329 H 303 H Random Glucose Calcium Phosphorus Magnesium Total Bilirubin AST ALT Alkaline Phosphatase Total Protein Albumin Globulin Albumin/Globulin Ratio Procalcitonin 07/17/18 07/17/18 07/17/18 04:55 05:19 05:57 WBC 9.3 RBC 3.39 L Hgb 10.3 L Hct 31.0 L MCV 91.4 MCH 30.3 MCHC 33.1 RDW 16.3 H Plt Count 142 MPV 10.3 Neut % (Auto) 78.9 H Lymph % (Auto) 8.4 L [place] % (Auto) 12.4 H Eos % (Auto) 0.0 Baso % (Auto) 0.3 Neut # (Auto) 7.3 H Lymph # (Auto) 0.8 L [place] # (Auto) 1.2 H Eos # (Auto) 0.0 Baso # (Auto) 0.0 Neutrophils % (Manual) 84 H Band Neutrophils % 2 Lymphocytes % (Manual) 9 L Monocytes % (Manual) 5 Platelet Estimate Normal Polychromasia Slight Hypochromasia (manual) Slight Anisocytosis (manual) Slight APTT Puncture Site L rad pCO2 39 pO2 67 L HCO3 25.5 ABG pH 7.42 ABG Total CO2 26.5 ABG O2 Saturation 96.3 ABG Base Excess 0.8 ABG Hemoglobin 10.1 L ABG Carboxyhemoglobin 1.7 H POC ABG HHb (Measured) 3.6 ABG Methemoglobin 0.6 Kevon Test Pos A-a O2 Difference 241.0 Respiratory Index 3.6 Hgb O2 Saturation 94.2 L Vent Mode Prvc Mechanical Rate 12 FiO2 50.0 Tidal Volume 450 PEEP 5 Sodium Potassium Chloride Carbon Dioxide Anion Gap BUN Creatinine Est GFR ( Amer) Est GFR (Non-Af Amer) POC Glucose (mg/dL) 271 H Random Glucose Calcium Phosphorus Magnesium Total Bilirubin AST ALT Alkaline Phosphatase Total Protein Albumin Globulin Albumin/Globulin Ratio Procalcitonin 07/17/18 07/17/18 07/17/18 05:57 05:57 05:57 WBC RBC Hgb Hct MCV MCH MCHC RDW Plt Count MPV Neut % (Auto) Lymph % (Auto) [place] % (Auto) Eos % (Auto) Baso % (Auto) Neut # (Auto) Lymph # (Auto) [place] # (Auto) Eos # (Auto) Baso # (Auto) Neutrophils % (Manual) Band Neutrophils % Lymphocytes % (Manual) Monocytes % (Manual) Platelet Estimate Polychromasia Hypochromasia (manual) Anisocytosis (manual) APTT 43 H D Puncture Site pCO2 pO2 HCO3 ABG pH ABG Total CO2 ABG O2 Saturation ABG Base Excess ABG Hemoglobin ABG Carboxyhemoglobin POC ABG HHb (Measured) ABG Methemoglobin Kevon Test A-a O2 Difference Respiratory Index Hgb O2 Saturation Vent Mode Mechanical Rate FiO2 Tidal Volume PEEP Sodium 147 Potassium 3.8 Chloride 113 H Carbon Dioxide 27 Anion Gap 11 BUN 39 H Creatinine 1.0 Est GFR ( Amer) > 60 Est GFR (Non-Af Amer) 58 POC Glucose (mg/dL) Random Glucose 266 H Calcium 7.8 L Phosphorus 3.0 Magnesium 1.9 Total Bilirubin 0.3 AST 25 ALT 57 H Alkaline Phosphatase 108 Total Protein 5.1 L Albumin 2.4 L Globulin 2.7 Albumin/Globulin Ratio 0.9 L Procalcitonin 2.96 H 07/17/18 11:52 WBC RBC Hgb Hct MCV MCH MCHC RDW Plt Count MPV Neut % (Auto) Lymph % (Auto) [place] % (Auto) Eos % (Auto) Baso % (Auto) Neut # (Auto) Lymph # (Auto) [place] # (Auto) Eos # (Auto) Baso # (Auto) Neutrophils % (Manual) Band Neutrophils % Lymphocytes % (Manual) Monocytes % (Manual) Platelet Estimate Polychromasia Hypochromasia (manual) Anisocytosis (manual) APTT Puncture Site pCO2 pO2 HCO3 ABG pH ABG Total CO2 ABG O2 Saturation ABG Base Excess ABG Hemoglobin ABG Carboxyhemoglobin POC ABG HHb (Measured) ABG Methemoglobin [place]ev[place] Test A-a O2 Difference Respiratory Index Hgb O2 Saturation Vent Mode Mechanical Rate FiO2 Tidal Volume PEEP Sodium Potassium Chloride Carbon Dioxide Anion Gap BUN Creatinine Est GFR ( Amer) Est GFR (Non-Af Amer) POC Glucose (mg/dL) 328 H Random Glucose Calcium Phosphorus Magnesium Total Bilirubin AST ALT Alkaline Phosphatase Total Protein Albumin Globulin Albumin/Globulin Ratio Procalcitonin Fingerstick Blood Sugar Results: 328 Review of Systems - Review of Systems Systems not reviewed;Unavailable: Intubated Assessment/Plan - Assessment and Plan (Free Text) Assessment: This is a 52 yo female with PMH of DM2 and hypercholesterolemia who presented to with cough, post-tussive emesis, and malaise x2-3 weeks. She was admitted to the ICU for respiratory failure and acute renal failure. Remains intubated. Plan: Neuro: - anoxic brain injury - sedated on precedex Pulm: - hypoxic respiratory failure secondary to pulmonary congestion, renal failure - Goal is SaO2 > 92% and paO2 > 55 - Duonebs 2 ml INH RQ4 - holding off thoracentesis as patient is clinically improving CV: - cardiac arrest from unknown etiology - Cardiology consulted. Appreciate recs. 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 Lorena Hinkle PGY-1 - Date & Time Date: 07/17/18 Time: 08:00
--- NOTE | 2018-07-17 17:20 | CP.PCM.PN ---
Subjective - Date & Time of Evaluation Date of Evaluation: 07/17/18 Time of Evaluation: 17:08 - Subjective Subjective: non verbal opens eyes moves head nods to some simple commands spont moving all ext Objective - Vital Signs/Intake and Output Vital Signs (last 24 hours): Temp Pulse Resp BP Pulse Ox 99.0 F 69 13 115/52 L 100 07/17/18 16:00 07/17/18 16:00 07/17/18 16:00 07/17/18 15:28 07/17/18 16:00 Intake and Output: 07/17/18 07/17/18 06:59 18:59 Intake Total 1049.56 698.43 Output Total 1401 700 Balance -351.44 -1.57 - Medications Medications: Current Medications Acetaminophen (Tylenol 325mg Tab) 650 mg PO Q6 PRN PRN Reason: Fever >100.4 F Last Admin: 07/15/18 04:35 Dose: 650 mg Albuterol/Ipratropium (Duoneb 3 Mg/0.5 Mg (3 Ml) Ud) 3 ml INH RQ6 [facility] Last Admin: 07/17/18 13:39 Dose: 3 ml Apixaban (Eliquis) 2.5 mg PO BID [facility] Aspirin (Aspirin Chewable) 81 mg GT DAILY [facility] Last Admin: 07/17/18 09:29 Dose: 81 mg Clopidogrel Bisulfate (Plavix) 75 mg PO DAILY [facility] Last Admin: 07/17/18 09:15 Dose: 75 mg Ergocalciferol (Drisdol 50,000 Intl Units Cap) 1 cap PO Q7D [facility] Last Admin: 07/11/18 14:50 Dose: 1 cap Furosemide (Lasix) 20 mg IVP BID [facility] Heparin Sodium/Sodium Chloride (Heparin 46427 Units/250ml 1/2 Normal Saline) 25,000 units in 250 mls @ 10.207 mls/hr IV .Q24H PRN; Protocol PRN Reason: PROTOCOL Stop: 07/17/18 19:00 Last Titration: 07/17/18 13:22 Dose: 13 units/kg/hr, 7.372 mls/hr Vancomycin HCl 1 gm/ Sodium (Chloride) 250 mls @ 166.7 mls/hr IVPB Q24H [facility]; Protocol Last Admin: 07/16/18 17:13 Dose: 166.7 mls/hr Ceftriaxone Sodium 2 gm/ (Sodium Chloride) 100 mls @ 100 mls/hr IVPB Q12H [facility]; Protocol Last Admin: 07/17/18 16:36 Dose: 100 mls/hr Dexmedetomidine HCl 200 mcg/ (Sodium Chloride) 50 mls @ 2.91 mls/hr IV TITR PRN; Protocol PRN Reason: Sedation Last Admin: 07/17/18 02:07 Dose: 0.2 mcg/kg/hr, 2.91 mls/hr Insulin Aspart (Novolog) 0 unit SC Q6 [facility]; Protocol Last Admin: 07/17/18 11:56 Dose: 8 units Insulin Glargine (Lantus) 20 unit SC Q12 [facility] Last Admin: 07/17/18 10:04 Dose: 20 u Lactobacillus Acidophilus (Bacid Acidophilus) 1 cap PO Q12H [facility] Last Admin: 07/17/18 08:55 Dose: 1 cap Methimazole (Tapazole) 10 mg PO TID [facility] Last Admin: 07/17/18 13:10 Dose: 10 mg Pantoprazole Sodium (Protonix Susp) 40 mg PO BID [facility] Last Admin: 07/17/18 09:15 Dose: 40 mg Propranolol HCl (Inderal) 5 mg PO TID [facility] Last Admin: 07/17/18 13:10 Dose: 5 mg Rosuvastatin Calcium (Crestor) 2.5 mg PO HS [facility] Last Admin: 07/16/18 21:15 Dose: 2.5 mg - Labs Labs: 07/17/18 05:57 07/17/18 05:57 PT 13.6 SECONDS (9.7-12.2) H 07/16/18 06:10 INR 1.2 07/16/18 06:10 APTT 43 SECONDS (21-34) H D 07/17/18 05:57 - Constitutional Appears: Non-toxic, No Acute Distress - Head Exam Head Exam: NORMAL INSPECTION - Eye Exam Eye Exam: Normal appearance - ENT Exam ENT Exam: Mucous Membranes Dry Additional comments: et tube og tube - Respiratory Exam Respiratory Exam: absent: Clear to Ausculation Bilateral, Rales, Rhonchi, Wheezes Additional comments: vent coarse bs bilaterally - Cardiovascular Exam Cardiovascular Exam: REGULAR RHYTHM, +S1, +S2 - GI/Abdominal Exam GI & Abdominal Exam: Soft, Normal Bowel Sounds. absent: Tenderness - Neurological Exam Neurological Exam: Alert, Awake. absent: Oriented x3 Assessment and Plan - Assessment and Plan (Free Text) Assessment: wean per icu now more awake cont iv abx cont icu care on elequis renal failure resolved 1) Septic Shock Assessment/Plan * Infectious Disease (Dr. Brock) on case-->help appreciated * Tmax: 100.3 F (07/14/18) * Criteria: leukocytosis, tachycardia * Source: aspiration pneumonia and urinary tract infection * 07/07/18: Urine: E. Coli * 07/09/18: Urine: No growth * 07/07/18: blood culture: no growth after 5 days X2 * 07/09/18 Blood culture: no growth after 5 days X2 * 07/14/18: blood cultures: no growth for 24 hours * 07/14/18: sputum culture: pending * 07/14/18: Urine culture: no growth * MRSA not detected * Antibiotics changed in light of fever spike on 07/14/18 * Rocephin 2gm IVPB Q12H (active since 07/14/18) * Vancomycin 1 gram IVPB Q24H (active since 07/14/18) 2) Acute Respiratory Failure Pulmonary Edema Assessment/Plan * Intubated * Tapered down to Solumedrol 20mg IVP daily * Duonebs RQ6H PRN wheezing * Duonebs RQ6H * Sputum culture: yeast * MRSA screen: not detected * Sputum culture X2: yeast * 07/14/18: Sputum culture: pending 3) Ventricular Tachycardia Nonstemi Apical Thrombus Assessment/Plan * Code Blue 07/10: SVT==>VT required amiodarone, magnesium, one shock delivered * Cardiology Dr Francisco on case help appreciated * When patient is stabilized will need further cardiac workup * Echocardiogram (07/07/18): left ventricle systolic function is borderline, ejection fraction is 45-50%, no aortic regurgitation is present, mitral regurgitation is mild. Mild tricuspid regurgitation. mild pulmonary hypertension, mild pulmonic valvular regurgitation * Contrast echo: Large apical hypokinesis a large 30 x 20 mm soft tissue apical sessile mass suggestive of thrombus overall fraction 40%. Obtain a HUBERT or/consider stress card myopathy if coronary disease is excluded further findings per report * Amiodarone discontinued * Monitor electrolytes * Heparin drip * Switch from Cardizem==>propranolol 1mg IVP Q6H 4) Urinary Tract Infection Assessment/Plan * Infectious disease on board help appreciated * 07/07/18: Urine: E. Coli * 07/09/18: Urine: No growth * 07/14/18: Urine culture: pending 4) Aspiration Pneumonia Assessment/Plan * Mycoplasma negative * Legionella was negative * Influenza negative * HIV negative * Antibiotics changed in light of fever spike on 07/14/18 * Rocephin 2gm IVPB Q12H (active since 07/14/18) * Vancomycin 1 gram IVPB Q24H (active since 07/14/18) 5) Diabetes Assessment/Plan * a1c: 7.8 * hypoglycemic protocol * novolog unit subq * Lantus 10 units subcutaneous at bedtime 6) Acute on Chronic Renal Failure Assessment/Plan * Nephrology (Dr. Hyde) on board--> help appreciated * We'll continue diuresis * Patient will likely not need dialysis * renal function recovering 7) Hyperthyroidism? Low TSH, and Free T4 Thyroid Storm Assessment/Plan * Note Thyroid studies taken before amiodarone was given (please advised this is not amiodarone induced her levels were abnormal prior) * Patient does not have prior thyroid history * Endocrinology (Dr. Gayle) on board help appreciated * c/w apazole 10mg PO TID * propranolol 1mg IVQ6H * Monitor LFTs 8) Anemia Assessment/Plan * iron normal, TIBC low, iron sat normal, ferritin normal * stool occult blood negative * B12 normal * Folate Normal * Improved * patient is on heparin drip secondary to apical thrombus 9) Transminitis * related to sepsis and was on amiodarone but is off * Hepatitis serology negative * improving 10) Vitamin D deficiency Assessment plan * 50,000 international units once a week for at least 8-12 weeks started on July 11 11) Thrombocytopenia Assessment plan * related to HIT or sepsis? * patient has been on heparin drip * Fibrinogen elevated * pending HIT/RUSTY * (patient is on plavix/aspirin) * side effect of methiazole? * normalized 12) Prophylactic measure * Protonix 40mg PO BID * off Precedex drip * Propranolol 1mg IVP Q6H * Heparin drip * off 1 pressor since 2pm 07/15/18 * Patient is vital feeding which has helped to improved diarrhea since 07/12/18 * Subclavian line 07/14/18 Disposition: * per icu for weaning protocol * Neuro was consulted yesterday due to concern for anoxic brain injury; recommended for sedation vacation and repeat head CT. Both head CTs are negative for acute findings. However, patient does respond with Noelle to better assessment of mental status. patient was switched off Fentanyl to Precedex. Patient becomes very restless when off Precedex however will follow directions either by showing her and she will repeat back. * f/u repeat cultures from 07/14 because of fever spike * Diarrrhea--->order for C. dif * Goiter-->thyroid US, TSI, TBII, patient is on methamiazole; off amiodarone (likely worsening LFTs), and on beta sandra PRN * When patient is more stable, will need cardiac workup * Order for venous doppler edema, nonpitting b/l; low suspicion for dvt (patient has been on heparin for the apical thrombus)
[2018-07-17] MEDS: Rosuvastatin Calcium 2.5 mg Tab PO SCH (21:28)
[2018-07-18] MEDS: (Novolog) Insulin Aspart, Recombinant 100 u/ml 10 ml vial SC SCH ×5 (00:26→23:50)
[2018-07-18] MEDS: Albuterol-Ipratrop 3 mg / 0.5 (3 ml) UD INH SCH ×4 (01:14→19:45)
[2018-07-18 05:25] LABS: ABG ALLEN TEST POS; ARTERIAL BLOOD GAS HCO3 27.4 mmol/L (21-28); ARTERIAL BLOOD GAS HEMOGLOBIN 14.2 g/dL (11.7-17.4); ARTERIAL BLOOD GAS O2 SAT 98.1 % (95-98); ARTERIAL BLOOD GAS PCO2 41 mm/Hg (35-45); ARTERIAL BLOOD GAS PH 7.44 (7.35-7.45); ARTERIAL BLOOD GAS PO2 81 mm/Hg (80-100); ARTERIAL BLOOD GAS TCO2 29.1 mmol/L (22-28)
[2018-07-18 05:46] LABS: BASO % 0.4 % (0.0-2.0); EOS % 0.1 % (0.0-4.0); HEMOGLOBIN 9.6 g/dL (11.0-16.0); LYMPH # 1.2 K/uL (1.0-4.3); LYMPH % 11.6 % (20.0-40.0); MEAN CELL VOLUME 90.4 fL (81.0-99.0); MEAN CORPUSCULAR HGB CONC 33.2 g/dL (33.0-37.0); MEAN PLATELET VOLUME 9.7 fL (7.2-11.7); MONO # 0.9 K/uL (0.0-0.8); MONO % 8.5 % (0.0-10.0); NEUT # 8.3 K/uL (1.8-7.0); NEUT % 79.4 % (50.0-75.0); RBC 3.2 Mil/uL (3.80-5.20); RED CELL DISTRIBUTION WIDTH 15.6 % (11.5-14.5); WHITE BLOOD COUNT 10.5 K/uL (4.8-10.8)
[2018-07-18 06:31] LABS: ALBUMIN 2.2 g/dL (3.5-5.0); ALT/SGPT 53 U/L (9-52); AST/SGOT 37 U/L (14-36); BLOOD UREA NITROGEN 31 mg/dL (7-17); CALCIUM 7.3 mg/dl (8.6-10.4); GFR NON-AFRICAN AMERICAN > 60
[2018-07-18] MEDS: Pantoprazole 40 mg Susp UD PO SCH ×2 (10:19→17:12)
[2018-07-18] MEDS: Propranolol 5 mg Tab PO SCH ×3 (10:21→17:12)
[2018-07-18] MEDS: Lactobacillus Acidophilus 500 MU Cap PO SCH ×2 (10:21→20:04)
[2018-07-18] MEDS: (Lantus) Insulin Glargine, Recombinant SC SCH ×2 (10:24→21:41)
--- NOTE | 2018-07-18 10:55 | CP.CCUPN ---
<Anabel Hinkle L - Last Filed: 07/18/18 16:41> CCU Subjective - Physician Review Subjective (Free Text): Resident Critical Care Progress Note Patient examined at bedside. No acute events overnight. Patient is intubated, much more alert today. Follows commands, responds to questioning. Critical Care Time Spent (in minutes): 35 CCU Objective - Vital Signs / Intake & Output Vital Signs (Last 4 hours): Vital Signs Temp Pulse Resp BP Pulse Ox 07/18/18 10:19 111/59 L 07/18/18 09:00 92 H 17 98 07/18/18 08:28 69 12 120/55 L 99 07/18/18 08:00 97.8 F 94 H 15 100 07/18/18 07:28 69 12 126/59 L 100 07/18/18 07:00 79 13 100 Intake and Output (Last 8hrs): Intake & Output 07/17/18 07/18/18 07/18/18 22:59 06:59 14:59 Intake Total 1032.4 378.2 143.7 Output Total 150 650 Balance 882.4 -271.8 143.7 Weight 128 lb Intake: IV 50 Intake, IV Amount 432.4 23.2 8.7 Right Hand 59.2 0 Right Medial Port 23.2 23.2 8.7 Subclavian Right Proximal Port 350 Subclavian Oral 180 Tube Feeding 270 355 135 Other 100 Output: Urine 150 650 Urine, Voided 150 650 Other: # Voids Urine, Voided 1 # Bowel Movements 1 1 1 - Physical Exam Head: Positive for: Atraumatic, Normocephalic Pupils: Positive for: PERRL. Negative for: Sluggish, Pinpoint Extroacular Muscles: Positive for: EOMI. Negative for: Gaze Palsy Conjunctiva: Positive for: Normal. Negative for: Injected, Icteric Mouth: Positive for: Moist Mucous Membranes Nose (External): Positive for: Atraumatic. Negative for: Abrasion, Contusion, Laceration Nose (Internal): Positive for: No Active Bleeding. Negative for: Epistaxis Neck: Positive for: Normal Range of Motion (passive and active (sometimes turning head to track across room)), Trachea Midline. Negative for: JVD Respiratory/Chest: Positive for: Good Air Exchange, Rhonchi (mild ronchi in bilateral bases), Other (intubated and ventilated). Negative for: Wheezes, Rales Cardiovascular: Positive for: Normal S1, S2, Peripheal Pulses Present (+2 radials), Other (alternates between regular rate in 80's and tachycardic up to 130's, appears regular rhythm during tachy phases). Negative for: Regular Rate and Rhythm, Tachycardic, Bradycardic Abdomen: Positive for: Normal Bowel Sounds. Negative for: Tenderness, Distention Upper Extremity: Positive for: Normal Inspection, NORMAL PULSES. Negative for: Cyanosis, Edema Lower Extremity: Positive for: Normal Inspection. Negative for: Edema, CALF TENDERNESS Neurological: Positive for: Other (weaning from sedation, intermittently opens eyes and tracks staff across room, but minimal spontaneous movements, not following verbal or pantomimed commands) Skin: Positive for: Warm, Dry, Normal Color Psychiatric: Positive for: Other (intermittently awake and alert) - Medications Active Medications: Active Medications Generic Name Dose Route Start Last Admin Trade Name Freq PRN Reason Stop Dose Admin Acetaminophen 650 mg 07/12/18 15:57 07/15/18 04:35 Tylenol 325mg Tab PO 650 mg Q6 PRN Administration Fever >100.4 F Albuterol/Ipratropium 3 ml 07/14/18 20:00 07/18/18 08:39 Duoneb 3 Mg/0.5 Mg (3 Ml) Ud INH 3 ml RQ6 MANOLO Administration Apixaban 2.5 mg 07/17/18 18:00 07/18/18 10:21 Eliquis PO 2.5 mg BID MANOLO Administration Aspirin 81 mg 07/17/18 10:00 07/18/18 10:19 Aspirin Chewable GT 81 mg DAILY MANOLO Administration Clopidogrel Bisulfate 75 mg 07/14/18 10:00 07/18/18 10:20 Plavix PO 75 mg DAILY MANOLO Administration Ergocalciferol 1 cap 07/11/18 12:45 07/11/18 14:50 Drisdol 50,000 Intl Units Cap PO 1 cap Q7D MANOLO Administration Furosemide 20 mg 07/17/18 18:00 07/18/18 10:19 Lasix IVP 20 mg BID MANOLO Administration Vancomycin HCl 1 gm/ Sodium 250 mls @ 166.7 mls/hr 07/14/18 18:00 07/17/18 17:35 Chloride IVPB 166.7 mls/hr Q24H MANOLO Administration Protocol Ceftriaxone Sodium 2 gm/ 100 mls @ 100 mls/hr 07/14/18 17:00 07/18/18 04:47 Sodium Chloride IVPB 100 mls/hr Q12H MANOLO Administration Protocol Dexmedetomidine HCl 200 mcg/ 50 mls @ 2.91 mls/hr 07/15/18 19:55 07/17/18 20:25 Sodium Chloride IV 0.2 mcg/kg/hr TITR PRN 2.91 mls/hr Sedation Administration Protocol 0.2 MCG/KG/HR Insulin Aspart 0 unit 07/11/18 08:28 07/18/18 06:04 Novolog SC Not Given Q6 MANOLO Protocol Insulin Glargine 20 unit 07/17/18 09:46 07/18/18 10:24 Lantus SC 20 u Q12 MANOLO Administration Lactobacillus Acidophilus 1 cap 07/08/18 20:00 07/18/18 10:21 Bacid Acidophilus PO 1 cap Q12H MANOLO Administration Methimazole 10 mg 07/11/18 10:00 07/18/18 10:21 Tapazole PO 10 mg TID MANOLO Administration Pantoprazole Sodium 40 mg 07/11/18 10:00 07/18/18 10:19 Protonix Susp PO 40 mg BID MANOLO Administration Propranolol HCl 5 mg 07/16/18 10:00 07/18/18 10:21 Inderal PO 5 mg TID MANOLO Administration Rosuvastatin Calcium 2.5 mg 07/13/18 22:00 07/17/18 21:28 Crestor PO 2.5 mg HS MANOLO Administration - Patient Studies Lab Studies: Microbiology Studies 07/10/18 11:01 Mycobacterial Culture - Preliminary Other: Please Indicate 07/14/18 13:01 Blood Culture - Preliminary Blood NO GROWTH AFTER 3 DAYS 07/14/18 13:01 Blood Culture - Preliminary Blood NO GROWTH AFTER 3 DAYS Lab Studies 07/18/18 07/18/18 07/18/18 Range/Units 10:17 05:33 05:33 WBC 10.5 (4.8-10.8) K/uL RBC 3.20 L (3.80-5.20) Mil/uL Hgb 9.6 L (11.0-16.0) g/dL Hct 28.9 L (34.0-47.0) % MCV 90.4 (81.0-99.0) fL MCH 30.0 (27.0-31.0) pg MCHC 33.2 (33.0-37.0) g/dL RDW 15.6 H (11.5-14.5) % Plt Count 140 (130-400) K/uL MPV 9.7 (7.2-11.7) fL Neut % (Auto) 79.4 H (50.0-75.0) % Lymph % (Auto) 11.6 L (20.0-40.0) % Putnam % (Auto) 8.5 (0.0-10.0) % Eos % (Auto) 0.1 (0.0-4.0) % Baso % (Auto) 0.4 (0.0-2.0) % Neut # (Auto) 8.3 H (1.8-7.0) K/uL Lymph # (Auto) 1.2 (1.0-4.3) K/uL [place] # (Auto) 0.9 H (0.0-0.8) K/uL Eos # (Auto) 0.0 (0.0-0.7) K/uL Baso # (Auto) 0.0 (0.0-0.2) K/uL Puncture Site pCO2 (35-45) mm/Hg pO2 (80-100) mm/Hg HCO3 (21-28) mmol/L ABG pH (7.35-7.45) ABG Total CO2 (22-28) mmol/L ABG O2 Saturation (95-98) % ABG Base Excess (-2.0-3.0) mmol/L ABG Hemoglobin (11.7-17.4) g/dL ABG Carboxyhemoglobin (0.5-1.5) % POC ABG HHb (Measured) (0.0-5.0) % ABG Methemoglobin (0.0-3.0) % Kevon Test A-a O2 Difference mm/Hg Respiratory Index Hgb O2 Saturation (95.0-98.0) % Vent Mode Mechanical Rate FiO2 % Tidal Volume PEEP Sodium 149 H (132-148) mmol/L Potassium 3.6 (3.6-5.2) mmol/L Chloride 113 H (98-107) mmol/L Carbon Dioxide 28 (22-30) mmol/L Anion Gap 12 (10-20) BUN 31 H (7-17) mg/dL Creatinine 0.9 (0.7-1.2) mg/dL Est GFR ( Amer) > 60 Est GFR (Non-Af Amer) > 60 POC Glucose (mg/dL) 110 (65-110) mg/dL Random Glucose 85 (65-105) mg/dL Calcium 7.3 L (8.6-10.4) mg/dl Phosphorus 2.6 (2.5-4.5) mg/dL Magnesium 1.6 (1.6-2.3) mg/dL Total Bilirubin 0.3 (0.2-1.3) mg/dL AST 37 H D (14-36) U/L ALT 53 H (9-52) U/L Alkaline Phosphatase 122 (38-126) U/L Total Protein 4.4 L (6.3-8.3) g/dL Albumin 2.2 L (3.5-5.0) g/dL Globulin 2.3 (2.2-3.9) gm/dL Albumin/Globulin Ratio 1.0 (1.0-2.1) UF Heparin Interp (Negative) Heparin-induced Plt Ab (Negative) RUSTY UFH Low Dose 0.1 % Release RUSTY UFH Low Dose 0.5 % Release RUSTY UFH High Dose 100 % Release 07/18/18 07/18/18 07/17/18 Range/Units 05:17 05:10 23:30 WBC (4.8-10.8) K/uL RBC (3.80-5.20) Mil/uL Hgb (11.0-16.0) g/dL Hct (34.0-47.0) % MCV (81.0-99.0) fL MCH (27.0-31.0) pg MCHC (33.0-37.0) g/dL RDW (11.5-14.5) % Plt Count (130-400) K/uL MPV (7.2-11.7) fL Neut % (Auto) (50.0-75.0) % Lymph % (Auto) (20.0-40.0) % Putnam % (Auto) (0.0-10.0) % Eos % (Auto) (0.0-4.0) % Baso % (Auto) (0.0-2.0) % Neut # (Auto) (1.8-7.0) K/uL Lymph # (Auto) (1.0-4.3) K/uL Putnam # (Auto) (0.0-0.8) K/uL Eos # (Auto) (0.0-0.7) K/uL Baso # (Auto) (0.0-0.2) K/uL Puncture Site Rr pCO2 41 (35-45) mm/Hg pO2 81 (80-100) mm/Hg HCO3 27.4 (21-28) mmol/L ABG pH 7.44 (7.35-7.45) ABG Total CO2 29.1 H (22-28) mmol/L ABG O2 Saturation 98.1 H (95-98) % ABG Base Excess 3.3 H (-2.0-3.0) mmol/L ABG Hemoglobin 14.2 (11.7-17.4) g/dL ABG Carboxyhemoglobin 2.1 H (0.5-1.5) % POC ABG HHb (Measured) 1.8 (0.0-5.0) % ABG Methemoglobin 0.7 (0.0-3.0) % Kevon Test Pos A-a O2 Difference 224.0 mm/Hg Respiratory Index 2.8 Hgb O2 Saturation 95.4 (95.0-98.0) % Vent Mode Prvc Mechanical Rate 12 FiO2 50.0 % Tidal Volume 450 PEEP 5 Sodium (132-148) mmol/L Potassium (3.6-5.2) mmol/L Chloride (98-107) mmol/L Carbon Dioxide (22-30) mmol/L Anion Gap (10-20) BUN (7-17) mg/dL Creatinine (0.7-1.2) mg/dL Est GFR ( Amer) Est GFR (Non-Af Amer) POC Glucose (mg/dL) 86 123 H (65-110) mg/dL Random Glucose (65-105) mg/dL Calcium (8.6-10.4) mg/dl Phosphorus (2.5-4.5) mg/dL Magnesium (1.6-2.3) mg/dL Total Bilirubin (0.2-1.3) mg/dL AST (14-36) U/L ALT (9-52) U/L Alkaline Phosphatase (38-126) U/L Total Protein (6.3-8.3) g/dL Albumin (3.5-5.0) g/dL Globulin (2.2-3.9) gm/dL Albumin/Globulin Ratio (1.0-2.1) UF Heparin Interp (Negative) Heparin-induced Plt Ab (Negative) RUSTY UFH Low Dose 0.1 % Release RUSTY UFH Low Dose 0.5 % Release RUSTY UFH High Dose 100 % Release 07/17/18 07/17/18 07/17/18 Range/Units 17:48 17:39 11:52 WBC (4.8-10.8) K/uL RBC (3.80-5.20) Mil/uL Hgb (11.0-16.0) g/dL Hct (34.0-47.0) % MCV (81.0-99.0) fL MCH (27.0-31.0) pg MCHC (33.0-37.0) g/dL RDW (11.5-14.5) % Plt Count (130-400) K/uL MPV (7.2-11.7) fL Neut % (Auto) (50.0-75.0) % Lymph % (Auto) (20.0-40.0) % Putnam % (Auto) (0.0-10.0) % Eos % (Auto) (0.0-4.0) % Baso % (Auto) (0.0-2.0) % Neut # (Auto) (1.8-7.0) K/uL Lymph # (Auto) (1.0-4.3) K/uL Putnam # (Auto) (0.0-0.8) K/uL Eos # (Auto) (0.0-0.7) K/uL Baso # (Auto) (0.0-0.2) K/uL Puncture Site pCO2 (35-45) mm/Hg pO2 (80-100) mm/Hg HCO3 (21-28) mmol/L ABG pH (7.35-7.45) ABG Total CO2 (22-28) mmol/L ABG O2 Saturation (95-98) % ABG Base Excess (-2.0-3.0) mmol/L ABG Hemoglobin (11.7-17.4) g/dL ABG Carboxyhemoglobin (0.5-1.5) % POC ABG HHb (Measured) (0.0-5.0) % ABG Methemoglobin (0.0-3.0) % Kevon Test A-a O2 Difference mm/Hg Respiratory Index Hgb O2 Saturation (95.0-98.0) % Vent Mode Mechanical Rate FiO2 % Tidal Volume PEEP Sodium (132-148) mmol/L Potassium (3.6-5.2) mmol/L Chloride (98-107) mmol/L Carbon Dioxide (22-30) mmol/L Anion Gap (10-20) BUN (7-17) mg/dL Creatinine (0.7-1.2) mg/dL Est GFR ( Amer) Est GFR (Non-Af Amer) POC Glucose (mg/dL) 197 H 189 H 328 H (65-110) mg/dL Random Glucose (65-105) mg/dL Calcium (8.6-10.4) mg/dl Phosphorus (2.5-4.5) mg/dL Magnesium (1.6-2.3) mg/dL Total Bilirubin (0.2-1.3) mg/dL AST (14-36) U/L ALT (9-52) U/L Alkaline Phosphatase (38-126) U/L Total Protein (6.3-8.3) g/dL Albumin (3.5-5.0) g/dL Globulin (2.2-3.9) gm/dL Albumin/Globulin Ratio (1.0-2.1) UF Heparin Interp (Negative) Heparin-induced Plt Ab (Negative) RUSTY UFH Low Dose 0.1 % Release RUSTY UFH Low Dose 0.5 % Release RUSTY UFH High Dose 100 % Release 07/14/18 Range/Units 10:47 WBC (4.8-10.8) K/uL RBC (3.80-5.20) Mil/uL Hgb (11.0-16.0) g/dL Hct (34.0-47.0) % MCV (81.0-99.0) fL MCH (27.0-31.0) pg MCHC (33.0-37.0) g/dL RDW (11.5-14.5) % Plt Count (130-400) K/uL MPV (7.2-11.7) fL Neut % (Auto) (50.0-75.0) % Lymph % (Auto) (20.0-40.0) % [place] % (Auto) (0.0-10.0) % Eos % (Auto) (0.0-4.0) % Baso % (Auto) (0.0-2.0) % Neut # (Auto) (1.8-7.0) K/uL Lymph # (Auto) (1.0-4.3) K/uL [place] # (Auto) (0.0-0.8) K/uL Eos # (Auto) (0.0-0.7) K/uL Baso # (Auto) (0.0-0.2) K/uL Puncture Site pCO2 (35-45) mm/Hg pO2 (80-100) mm/Hg HCO3 (21-28) mmol/L ABG pH (7.35-7.45) ABG Total CO2 (22-28) mmol/L ABG O2 Saturation (95-98) % ABG Base Excess (-2.0-3.0) mmol/L ABG Hemoglobin (11.7-17.4) g/dL ABG Carboxyhemoglobin (0.5-1.5) % POC ABG HHb (Measured) (0.0-5.0) % ABG Methemoglobin (0.0-3.0) % Kevon Test A-a O2 Difference mm/Hg Respiratory Index Hgb O2 Saturation (95.0-98.0) % Vent Mode Mechanical Rate FiO2 % Tidal Volume PEEP Sodium (132-148) mmol/L Potassium (3.6-5.2) mmol/L Chloride (98-107) mmol/L Carbon Dioxide (22-30) mmol/L Anion Gap (10-20) BUN (7-17) mg/dL Creatinine (0.7-1.2) mg/dL Est GFR ( Amer) Est GFR (Non-Af Amer) POC Glucose (mg/dL) (65-110) mg/dL Random Glucose (65-105) mg/dL Calcium (8.6-10.4) mg/dl Phosphorus (2.5-4.5) mg/dL Magnesium (1.6-2.3) mg/dL Total Bilirubin (0.2-1.3) mg/dL AST (14-36) U/L ALT (9-52) U/L Alkaline Phosphatase (38-126) U/L Total Protein (6.3-8.3) g/dL Albumin (3.5-5.0) g/dL Globulin (2.2-3.9) gm/dL Albumin/Globulin Ratio (1.0-2.1) UF Heparin Interp Negative (Negative) Heparin-induced Plt Ab Negative (Negative) RUSTY UFH Low Dose 0.1 0 % Release RUSTY UFH Low Dose 0.5 0 % Release RUSTY UFH High Dose 100 0 % Release Laboratory Results - last 24 hr 07/14/18 07/17/18 07/17/18 10:47 11:52 17:39 WBC RBC Hgb Hct MCV MCH MCHC RDW Plt Count MPV Neut % (Auto) Lymph % (Auto) [place] % (Auto) Eos % (Auto) Baso % (Auto) Neut # (Auto) Lymph # (Auto) [place] # (Auto) Eos # (Auto) Baso # (Auto) Puncture Site pCO2 pO2 HCO3 ABG pH ABG Total CO2 ABG O2 Saturation ABG Base Excess ABG Hemoglobin ABG Carboxyhemoglobin POC ABG HHb (Measured) ABG Methemoglobin Kevon Test A-a O2 Difference Respiratory Index Hgb O2 Saturation Vent Mode Mechanical Rate FiO2 Tidal Volume PEEP Sodium Potassium Chloride Carbon Dioxide Anion Gap BUN Creatinine Est GFR ( Amer) Est GFR (Non-Af Amer) POC Glucose (mg/dL) 328 H 189 H Random Glucose Calcium Phosphorus Magnesium Total Bilirubin AST ALT Alkaline Phosphatase Total Protein Albumin Globulin Albumin/Globulin Ratio UF Heparin Interp Negative Heparin-induced Plt Ab Negative RUSTY UFH Low Dose 0.1 0 RUSTY UFH Low Dose 0.5 0 RUSTY UFH High Dose 100 0 07/17/18 07/17/18 07/18/18 17:48 23:30 05:10 WBC RBC Hgb Hct MCV MCH MCHC RDW Plt Count MPV Neut % (Auto) Lymph % (Auto) [place] % (Auto) Eos % (Auto) Baso % (Auto) Neut # (Auto) Lymph # (Auto) [place] # (Auto) Eos # (Auto) Baso # (Auto) Puncture Site Rr pCO2 41 pO2 81 HCO3 27.4 ABG pH 7.44 ABG Total CO2 29.1 H ABG O2 Saturation 98.1 H ABG Base Excess 3.3 H ABG Hemoglobin 14.2 ABG Carboxyhemoglobin 2.1 H POC ABG HHb (Measured) 1.8 ABG Methemoglobin 0.7 Kevon Test Pos A-a O2 Difference 224.0 Respiratory Index 2.8 Hgb O2 Saturation 95.4 Vent Mode Prvc Mechanical Rate 12 FiO2 50.0 Tidal Volume 450 PEEP 5 Sodium Potassium Chloride Carbon Dioxide Anion Gap BUN Creatinine Est GFR ( Amer) Est GFR (Non-Af Amer) POC Glucose (mg/dL) 197 H 123 H Random Glucose Calcium Phosphorus Magnesium Total Bilirubin AST ALT Alkaline Phosphatase Total Protein Albumin Globulin Albumin/Globulin Ratio UF Heparin Interp Heparin-induced Plt Ab RUSTY UFH Low Dose 0.1 RUSTY UFH Low Dose 0.5 RUSTY UFH High Dose 100 07/18/18 07/18/18 07/18/18 05:17 05:33 05:33 WBC 10.5 RBC 3.20 L Hgb 9.6 L Hct 28.9 L MCV 90.4 MCH 30.0 MCHC 33.2 RDW 15.6 H Plt Count 140 MPV 9.7 Neut % (Auto) 79.4 H Lymph % (Auto) 11.6 L [place] % (Auto) 8.5 Eos % (Auto) 0.1 Baso % (Auto) 0.4 Neut # (Auto) 8.3 H Lymph # (Auto) 1.2 [place] # (Auto) 0.9 H Eos # (Auto) 0.0 Baso # (Auto) 0.0 Puncture Site pCO2 pO2 HCO3 ABG pH ABG Total CO2 ABG O2 Saturation ABG Base Excess ABG Hemoglobin ABG Carboxyhemoglobin POC ABG HHb (Measured) ABG Methemoglobin Kevon Test A-a O2 Difference Respiratory Index Hgb O2 Saturation Vent Mode Mechanical Rate FiO2 Tidal Volume PEEP Sodium 149 H Potassium 3.6 Chloride 113 H Carbon Dioxide 28 Anion Gap 12 BUN 31 H Creatinine 0.9 Est GFR ( Amer) > 60 Est GFR (Non-Af Amer) > 60 POC Glucose (mg/dL) 86 Random Glucose 85 Calcium 7.3 L Phosphorus 2.6 Magnesium 1.6 Total Bilirubin 0.3 AST 37 H D ALT 53 H Alkaline Phosphatase 122 Total Protein 4.4 L Albumin 2.2 L Globulin 2.3 Albumin/Globulin Ratio 1.0 UF Heparin Interp Heparin-induced Plt Ab RUSTY UFH Low Dose 0.1 RUSTY UFH Low Dose 0.5 RUSTY UFH High Dose 100 07/18/18 10:17 WBC RBC Hgb Hct MCV MCH MCHC RDW Plt Count MPV Neut % (Auto) Lymph % (Auto) [place] % (Auto) Eos % (Auto) Baso % (Auto) Neut # (Auto) Lymph # (Auto) [place] # (Auto) Eos # (Auto) Baso # (Auto) Puncture Site pCO2 pO2 HCO3 ABG pH ABG Total CO2 ABG O2 Saturation ABG Base Excess ABG Hemoglobin ABG Carboxyhemoglobin POC ABG HHb (Measured) ABG Methemoglobin Kevon Test A-a O2 Difference Respiratory Index Hgb O2 Saturation Vent Mode Mechanical Rate FiO2 Tidal Volume PEEP Sodium Potassium Chloride Carbon Dioxide Anion Gap BUN Creatinine Est GFR ( Amer) Est GFR (Non-Af Amer) POC Glucose (mg/dL) 110 Random Glucose Calcium Phosphorus Magnesium Total Bilirubin AST ALT Alkaline Phosphatase Total Protein Albumin Globulin Albumin/Globulin Ratio UF Heparin Interp Heparin-induced Plt Ab RUSTY UFH Low Dose 0.1 RUSTY UFH Low Dose 0.5 RUSTY UFH High Dose 100 Fingerstick Blood Sugar Results: 197 Assessment/Plan - Assessment and Plan (Free Text) Assessment: This is a 52 yo female with PMH of DM2 and hypercholesterolemia who presented to with cough, post-tussive emesis, and malaise x2-3 weeks. She was admitted to the ICU for respiratory failure and acute renal failure. Remains intubated. Plan: Neuro: - anoxic brain injury - sedated on precedex Pulm: - hypoxic respiratory failure secondary to pulmonary congestion, renal failure - Goal is SaO2 > 92% and paO2 > 55 - Duonebs 2 ml INH RQ4 CV: - cardiac arrest from unknown etiology - Cardiology consulted. Appreciate recs. 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 Neville Hinkle PGY-1 - Date & Time Date: 07/18/18 Time: 08:00 <Errol Lozada S - Last Filed: 07/18/18 17:50> CCU Objective - Vital Signs / Intake & Output Vital Signs (Last 4 hours): Vital Signs Temp Pulse Resp BP Pulse Ox 07/18/18 17:14 136/65 07/18/18 17:00 75 12 100 07/18/18 16:28 74 12 136/65 07/18/18 16:00 98.3 F 78 12 130/59 L 07/18/18 15:28 72 12 130/59 L 07/18/18 15:00 75 12 07/18/18 14:28 73 12 117/61 07/18/18 14:00 77 12 Intake and Output (Last 8hrs): Intake & Output 07/18/18 07/18/18 07/18/18 06:59 14:59 22:59 Intake Total 378.2 919.2 497.2 Output Total 650 Balance -271.8 919.2 497.2 Weight 128 lb Intake: IV 42 8 Intake, IV Amount 23.2 17.2 354.2 Right Distal Port 250 Subclavian Right Hand 0 Right Medial Port 23.2 17.2 4.2 Subclavian Right Proximal Port 100 Subclavian Tube Feeding 355 360 135 Other 500 Output: Urine 650 Urine, Voided 650 Other: # Bowel Movements 1 1 1 - Medications Active Medications: Active Medications Generic Name Dose Route Start Last Admin Trade Name Freq PRN Reason Stop Dose Admin Acetaminophen 650 mg 07/12/18 15:57 07/15/18 04:35 Tylenol 325mg Tab PO 650 mg Q6 PRN Administration Fever >100.4 F Albuterol/Ipratropium 3 ml 07/14/18 20:00 07/18/18 14:13 Duoneb 3 Mg/0.5 Mg (3 Ml) Ud INH 3 ml RQ6 MANOLO Administration Apixaban 2.5 mg 07/18/18 18:00 07/18/18 17:12 Eliquis PO 2.5 mg BID MANOLO Administration Aspirin 81 mg 07/17/18 10:00 07/18/18 10:19 Aspirin Chewable GT 81 mg DAILY MANOLO Administration Ergocalciferol 1 cap 07/11/18 12:45 07/18/18 12:07 Drisdol 50,000 Intl Units Cap PO 1 cap Q7D MANOLO Administration Furosemide 20 mg 07/17/18 18:00 07/18/18 17:14 Lasix IVP 20 mg BID MANOLO Administration Vancomycin HCl 1 gm/ Sodium 250 mls @ 166.7 mls/hr 07/14/18 18:00 07/18/18 17:23 Chloride IVPB 166.7 mls/hr Q24H MANOLO Administration Protocol Ceftriaxone Sodium 2 gm/ 100 mls @ 100 mls/hr 07/14/18 17:00 07/18/18 16:27 Sodium Chloride IVPB 100 mls/hr Q12H MANOLO Administration Protocol Dexmedetomidine HCl 200 mcg/ 50 mls @ 2.91 mls/hr 07/15/18 19:55 07/18/18 15:16 Sodium Chloride IV 0.1 mcg/kg/hr TITR PRN 1.45 mls/hr Sedation Administration Protocol 0.2 MCG/KG/HR Insulin Aspart 0 unit 07/11/18 08:28 07/18/18 11:59 Novolog SC Not Given Q6 MANOOL Protocol Insulin Glargine 20 unit 07/17/18 09:46 07/18/18 10:24 Lantus SC 20 u Q12 MANOLO Administration Lactobacillus Acidophilus 1 cap 07/08/18 20:00 07/18/18 10:21 Bacid Acidophilus PO 1 cap Q12H AMNOLO Administration Methimazole 10 mg 07/11/18 10:00 07/18/18 17:12 Tapazole PO 10 mg TID MANOLO Administration Pantoprazole Sodium 40 mg 07/11/18 10:00 07/18/18 17:12 Protonix Susp PO 40 mg BID MANOLO Administration Propranolol HCl 5 mg 07/16/18 10:00 07/18/18 17:12 Inderal PO 5 mg TID MANOLO Administration Rosuvastatin Calcium 2.5 mg 07/13/18 22:00 07/17/18 21:28 Crestor PO 2.5 mg HS MANOLO Administration - Patient Studies Lab Studies: Microbiology Studies 07/14/18 13:01 Blood Culture - Preliminary Blood NO GROWTH AFTER 4 DAYS 07/14/18 13:01 Blood Culture - Preliminary Blood NO GROWTH AFTER 4 DAYS 07/10/18 11:01 Mycobacterial Culture - Preliminary Other: Please Indicate Lab Studies 07/18/18 07/18/18 07/18/18 Range/Units 11:16 10:17 05:33 WBC (4.8-10.8) K/uL RBC (3.80-5.20) Mil/uL Hgb (11.0-16.0) g/dL Hct (34.0-47.0) % MCV (81.0-99.0) fL MCH (27.0-31.0) pg MCHC (33.0-37.0) g/dL RDW (11.5-14.5) % Plt Count (130-400) K/uL MPV (7.2-11.7) fL Neut % (Auto) (50.0-75.0) % Lymph % (Auto) (20.0-40.0) % [place] % (Auto) (0.0-10.0) % Eos % (Auto) (0.0-4.0) % Baso % (Auto) (0.0-2.0) % Neut # (Auto) (1.8-7.0) K/uL Lymph # (Auto) (1.0-4.3) K/uL [place] # (Auto) (0.0-0.8) K/uL Eos # (Auto) (0.0-0.7) K/uL Baso # (Auto) (0.0-0.2) K/uL Puncture Site pCO2 (35-45) mm/Hg pO2 (80-100) mm/Hg HCO3 (21-28) mmol/L ABG pH (7.35-7.45) ABG Total CO2 (22-28) mmol/L ABG O2 Saturation (95-98) % ABG Base Excess (-2.0-3.0) mmol/L ABG Hemoglobin (11.7-17.4) g/dL ABG Carboxyhemoglobin (0.5-1.5) % POC ABG HHb (Measured) (0.0-5.0) % ABG Methemoglobin (0.0-3.0) % [place] Test A-a O2 Difference mm/Hg Respiratory Index Hgb O2 Saturation (95.0-98.0) % Vent Mode Mechanical Rate FiO2 % Tidal Volume PEEP Sodium 149 H (132-148) mmol/L Potassium 3.6 (3.6-5.2) mmol/L Chloride 113 H (98-107) mmol/L Carbon Dioxide 28 (22-30) mmol/L Anion Gap 12 (10-20) BUN 31 H (7-17) mg/dL Creatinine 0.9 (0.7-1.2) mg/dL Est GFR ( Amer) > 60 Est GFR (Non-Af Amer) > 60 POC Glucose (mg/dL) 131 H 110 (65-110) mg/dL Random Glucose 85 (65-105) mg/dL Calcium 7.3 L (8.6-10.4) mg/dl Phosphorus 2.6 (2.5-4.5) mg/dL Magnesium 1.6 (1.6-2.3) mg/dL Total Bilirubin 0.3 (0.2-1.3) mg/dL AST 37 H D (14-36) U/L ALT 53 H (9-52) U/L Alkaline Phosphatase 122 (38-126) U/L Total Protein 4.4 L (6.3-8.3) g/dL Albumin 2.2 L (3.5-5.0) g/dL Globulin 2.3 (2.2-3.9) gm/dL Albumin/Globulin Ratio 1.0 (1.0-2.1) UF Heparin Interp (Negative) RUSTY UFH Low Dose 0.1 % Release RUSTY UFH Low Dose 0.5 % Release RUSTY UFH High Dose 100 % Release 07/18/18 07/18/18 07/18/18 Range/Units 05:33 05:17 05:10 WBC 10.5 (4.8-10.8) K/uL RBC 3.20 L (3.80-5.20) Mil/uL Hgb 9.6 L (11.0-16.0) g/dL Hct 28.9 L (34.0-47.0) % MCV 90.4 (81.0-99.0) fL MCH 30.0 (27.0-31.0) pg MCHC 33.2 (33.0-37.0) g/dL RDW 15.6 H (11.5-14.5) % Plt Count 140 (130-400) K/uL MPV 9.7 (7.2-11.7) fL Neut % (Auto) 79.4 H (50.0-75.0) % Lymph % (Auto) 11.6 L (20.0-40.0) % [place] % (Auto) 8.5 (0.0-10.0) % Eos % (Auto) 0.1 (0.0-4.0) % Baso % (Auto) 0.4 (0.0-2.0) % Neut # (Auto) 8.3 H (1.8-7.0) K/uL Lymph # (Auto) 1.2 (1.0-4.3) K/uL [place] # (Auto) 0.9 H (0.0-0.8) K/uL Eos # (Auto) 0.0 (0.0-0.7) K/uL Baso # (Auto) 0.0 (0.0-0.2) K/uL Puncture Site Rr pCO2 41 (35-45) mm/Hg pO2 81 (80-100) mm/Hg HCO3 27.4 (21-28) mmol/L ABG pH 7.44 (7.35-7.45) ABG Total CO2 29.1 H (22-28) mmol/L ABG O2 Saturation 98.1 H (95-98) % ABG Base Excess 3.3 H (-2.0-3.0) mmol/L ABG Hemoglobin 14.2 (11.7-17.4) g/dL ABG Carboxyhemoglobin 2.1 H (0.5-1.5) % POC ABG HHb (Measured) 1.8 (0.0-5.0) % ABG Methemoglobin 0.7 (0.0-3.0) % [place] Test Pos A-a O2 Difference 224.0 mm/Hg Respiratory Index 2.8 Hgb O2 Saturation 95.4 (95.0-98.0) % Vent Mode Prvc Mechanical Rate 12 FiO2 50.0 % Tidal Volume 450 PEEP 5 Sodium (132-148) mmol/L Potassium (3.6-5.2) mmol/L Chloride (98-107) mmol/L Carbon Dioxide (22-30) mmol/L Anion Gap (10-20) BUN (7-17) mg/dL Creatinine (0.7-1.2) mg/dL Est GFR ( Amer) Est GFR (Non-Af Amer) POC Glucose (mg/dL) 86 (65-110) mg/dL Random Glucose (65-105) mg/dL Calcium (8.6-10.4) mg/dl Phosphorus (2.5-4.5) mg/dL Magnesium (1.6-2.3) mg/dL Total Bilirubin (0.2-1.3) mg/dL AST (14-36) U/L ALT (9-52) U/L Alkaline Phosphatase (38-126) U/L Total Protein (6.3-8.3) g/dL Albumin (3.5-5.0) g/dL Globulin (2.2-3.9) gm/dL Albumin/Globulin Ratio (1.0-2.1) UF Heparin Interp (Negative) RUSTY UFH Low Dose 0.1 % Release RUSTY UFH Low Dose 0.5 % Release RUSTY UFH High Dose 100 % Release 07/17/18 07/17/18 07/14/18 Range/Units 23:30 17:48 10:47 WBC (4.8-10.8) K/uL RBC (3.80-5.20) Mil/uL Hgb (11.0-16.0) g/dL Hct (34.0-47.0) % MCV (81.0-99.0) fL MCH (27.0-31.0) pg MCHC (33.0-37.0) g/dL RDW (11.5-14.5) % Plt Count (130-400) K/uL MPV (7.2-11.7) fL Neut % (Auto) (50.0-75.0) % Lymph % (Auto) (20.0-40.0) % [place] % (Auto) (0.0-10.0) % Eos % (Auto) (0.0-4.0) % Baso % (Auto) (0.0-2.0) % Neut # (Auto) (1.8-7.0) K/uL Lymph # (Auto) (1.0-4.3) K/uL [place] # (Auto) (0.0-0.8) K/uL Eos # (Auto) (0.0-0.7) K/uL Baso # (Auto) (0.0-0.2) K/uL Puncture Site pCO2 (35-45) mm/Hg pO2 (80-100) mm/Hg HCO3 (21-28) mmol/L ABG pH (7.35-7.45) ABG Total CO2 (22-28) mmol/L ABG O2 Saturation (95-98) % ABG Base Excess (-2.0-3.0) mmol/L ABG Hemoglobin (11.7-17.4) g/dL ABG Carboxyhemoglobin (0.5-1.5) % POC ABG HHb (Measured) (0.0-5.0) % ABG Methemoglobin (0.0-3.0) % Kevon Test A-a O2 Difference mm/Hg Respiratory Index Hgb O2 Saturation (95.0-98.0) % Vent Mode Mechanical Rate FiO2 % Tidal Volume PEEP Sodium (132-148) mmol/L Potassium (3.6-5.2) mmol/L Chloride (98-107) mmol/L Carbon Dioxide (22-30) mmol/L Anion Gap (10-20) BUN (7-17) mg/dL Creatinine (0.7-1.2) mg/dL Est GFR ( Amer) Est GFR (Non-Af Amer) POC Glucose (mg/dL) 123 H 197 H (65-110) mg/dL Random Glucose (65-105) mg/dL Calcium (8.6-10.4) mg/dl Phosphorus (2.5-4.5) mg/dL Magnesium (1.6-2.3) mg/dL Total Bilirubin (0.2-1.3) mg/dL AST (14-36) U/L ALT (9-52) U/L Alkaline Phosphatase (38-126) U/L Total Protein (6.3-8.3) g/dL Albumin (3.5-5.0) g/dL Globulin (2.2-3.9) gm/dL Albumin/Globulin Ratio (1.0-2.1) UF Heparin Interp Negative (Negative) RUSTY UFH Low Dose 0.1 0 % Release RUSTY UFH Low Dose 0.5 0 % Release RUSTY UFH High Dose 100 0 % Release Laboratory Results - last 24 hr 07/14/18 07/17/18 07/17/18 10:47 17:48 23:30 WBC RBC Hgb Hct MCV MCH MCHC RDW Plt Count MPV Neut % (Auto) Lymph % (Auto) [place] % (Auto) Eos % (Auto) Baso % (Auto) Neut # (Auto) Lymph # (Auto) [place] # (Auto) Eos # (Auto) Baso # (Auto) Puncture Site pCO2 pO2 HCO3 ABG pH ABG Total CO2 ABG O2 Saturation ABG Base Excess ABG Hemoglobin ABG Carboxyhemoglobin POC ABG HHb (Measured) ABG Methemoglobin Kevon Test A-a O2 Difference Respiratory Index Hgb O2 Saturation Vent Mode Mechanical Rate FiO2 Tidal Volume PEEP Sodium Potassium Chloride Carbon Dioxide Anion Gap BUN Creatinine Est GFR ( Amer) Est GFR (Non-Af Amer) POC Glucose (mg/dL) 197 H 123 H Random Glucose Calcium Phosphorus Magnesium Total Bilirubin AST ALT Alkaline Phosphatase Total Protein Albumin Globulin Albumin/Globulin Ratio UF Heparin Interp Negative RUSTY UFH Low Dose 0.1 0 RUSTY UFH Low Dose 0.5 0 RUSTY UFH High Dose 100 0 07/18/18 07/18/18 07/18/18 05:10 05:17 05:33 WBC 10.5 RBC 3.20 L Hgb 9.6 L Hct 28.9 L MCV 90.4 MCH 30.0 MCHC 33.2 RDW 15.6 H Plt Count 140 MPV 9.7 Neut % (Auto) 79.4 H Lymph % (Auto) 11.6 L [place] % (Auto) 8.5 Eos % (Auto) 0.1 Baso % (Auto) 0.4 Neut # (Auto) 8.3 H Lymph # (Auto) 1.2 [place] # (Auto) 0.9 H Eos # (Auto) 0.0 Baso # (Auto) 0.0 Puncture Site Rr pCO2 41 pO2 81 HCO3 27.4 ABG pH 7.44 ABG Total CO2 29.1 H ABG O2 Saturation 98.1 H ABG Base Excess 3.3 H ABG Hemoglobin 14.2 ABG Carboxyhemoglobin 2.1 H POC ABG HHb (Measured) 1.8 ABG Methemoglobin 0.7 Kevon Test Pos A-a O2 Difference 224.0 Respiratory Index 2.8 Hgb O2 Saturation 95.4 Vent Mode Prvc Mechanical Rate 12 FiO2 50.0 Tidal Volume 450 PEEP 5 Sodium Potassium Chloride Carbon Dioxide Anion Gap BUN Creatinine Est GFR ( Amer) Est GFR (Non-Af Amer) POC Glucose (mg/dL) 86 Random Glucose Calcium Phosphorus Magnesium Total Bilirubin AST ALT Alkaline Phosphatase Total Protein Albumin Globulin Albumin/Globulin Ratio UF Heparin Interp RUSTY UFH Low Dose 0.1 RUSTY UFH Low Dose 0.5 RUSTY UFH High Dose 100 07/18/18 07/18/18 07/18/18 05:33 10:17 11:16 WBC RBC Hgb Hct MCV MCH MCHC RDW Plt Count MPV Neut % (Auto) Lymph % (Auto) [place] % (Auto) Eos % (Auto) Baso % (Auto) Neut # (Auto) Lymph # (Auto) [place] # (Auto) Eos # (Auto) Baso # (Auto) Puncture Site pCO2 pO2 HCO3 ABG pH ABG Total CO2 ABG O2 Saturation ABG Base Excess ABG Hemoglobin ABG Carboxyhemoglobin POC ABG HHb (Measured) ABG Methemoglobin Kevon Test A-a O2 Difference Respiratory Index Hgb O2 Saturation Vent Mode Mechanical Rate FiO2 Tidal Volume PEEP Sodium 149 H Potassium 3.6 Chloride 113 H Carbon Dioxide 28 Anion Gap 12 BUN 31 H Creatinine 0.9 Est GFR ( Amer) > 60 Est GFR (Non-Af Amer) > 60 POC Glucose (mg/dL) 110 131 H Random Glucose 85 Calcium 7.3 L Phosphorus 2.6 Magnesium 1.6 Total Bilirubin 0.3 AST 37 H D ALT 53 H Alkaline Phosphatase 122 Total Protein 4.4 L Albumin 2.2 L Globulin 2.3 Albumin/Globulin Ratio 1.0 UF Heparin Interp RUSTY UFH Low Dose 0.1 RUSTY UFH Low Dose 0.5 RUSTY UFH High Dose 100 Attending/Attestation - Attestation I have personally seen and examined this patient.: Yes I have fully participated in the care of the patient.: Yes I have reviewed all pertinent clinical information: Yes Notes (Text): 07/18/18 17:49 patient seen and examined in the intensive care unit. the patient tolerated CPAP for a few hours continue anticoagulation Follow-up chest x-ray and ABG continue antibiotic
--- NOTE | 2018-07-18 11:57 | RAD ---
Chest x-ray single frontal view HISTORY: Intubation. COMPARISON: 07/17/2018 Findings: Lines and tubes in stable position. Moderate to severe venous congestion with prominent bibasilar airspace opacities and small to moderate left pleural effusion. Cardiomegaly. Degenerative changes in the spine and shoulders. Impression: Lines and tubes in stable position. Moderate to severe venous congestion with prominent bibasilar airspace opacities and small to moderate left pleural effusion. Cardiomegaly.
[2018-07-18] MEDS: Ergocalciferol 50,000 Intl Units Cap PO SCH (12:07)
--- NOTE | 2018-07-18 12:33 | CP.PCM.PN ---
Subjective - Date & Time of Evaluation Date of Evaluation: 07/18/18 Time of Evaluation: 09:00 - Subjective Subjective: arousable confused intubated moving all extremities Objective - Vital Signs/Intake and Output Vital Signs (last 24 hours): Temp Pulse Resp BP Pulse Ox 97.8 F 72 12 130/61 98 07/18/18 08:00 07/18/18 12:00 07/18/18 12:00 07/18/18 11:28 07/18/18 11:28 Intake and Output: 07/18/18 07/18/18 06:59 18:59 Intake Total 719.4 576.4 Output Total 650 Balance 69.4 576.4 - Medications Medications: Current Medications Acetaminophen (Tylenol 325mg Tab) 650 mg PO Q6 PRN PRN Reason: Fever >100.4 F Last Admin: 07/15/18 04:35 Dose: 650 mg Albuterol/Ipratropium (Duoneb 3 Mg/0.5 Mg (3 Ml) Ud) 3 ml INH RQ6 [facility] Last Admin: 07/18/18 08:39 Dose: 3 ml Apixaban (Eliquis) 2.5 mg PO BID [facility] Last Admin: 07/18/18 10:21 Dose: 2.5 mg Aspirin (Aspirin Chewable) 81 mg GT DAILY [facility] Last Admin: 07/18/18 10:19 Dose: 81 mg Clopidogrel Bisulfate (Plavix) 75 mg PO DAILY [facility] Last Admin: 07/18/18 10:20 Dose: 75 mg Ergocalciferol (Drisdol 50,000 Intl Units Cap) 1 cap PO Q7D [facility] Last Admin: 07/18/18 12:07 Dose: 1 cap Furosemide (Lasix) 20 mg IVP BID [facility] Last Admin: 07/18/18 10:19 Dose: 20 mg Vancomycin HCl 1 gm/ Sodium (Chloride) 250 mls @ 166.7 mls/hr IVPB Q24H [facility]; Protocol Last Admin: 07/17/18 17:35 Dose: 166.7 mls/hr Ceftriaxone Sodium 2 gm/ (Sodium Chloride) 100 mls @ 100 mls/hr IVPB Q12H [facility]; Protocol Last Admin: 07/18/18 04:47 Dose: 100 mls/hr Dexmedetomidine HCl 200 mcg/ (Sodium Chloride) 50 mls @ 2.91 mls/hr IV TITR PRN; Protocol PRN Reason: Sedation Last Titration: 07/18/18 10:30 Dose: 0.1 mcg/kg/hr, 1.45 mls/hr Insulin Aspart (Novolog) 0 unit SC Q6 [facility]; Protocol Last Admin: 07/18/18 11:59 Dose: Not Given Insulin Glargine (Lantus) 20 unit SC Q12 [facility] Last Admin: 07/18/18 10:24 Dose: 20 u Lactobacillus Acidophilus (Bacid Acidophilus) 1 cap PO Q12H [facility] Last Admin: 07/18/18 10:21 Dose: 1 cap Methimazole (Tapazole) 10 mg PO TID [facility] Last Admin: 07/18/18 10:21 Dose: 10 mg Pantoprazole Sodium (Protonix Susp) 40 mg PO BID [facility] Last Admin: 07/18/18 10:19 Dose: 40 mg Propranolol HCl (Inderal) 5 mg PO TID [facility] Last Admin: 07/18/18 10:21 Dose: 5 mg Rosuvastatin Calcium (Crestor) 2.5 mg PO HS [facility] Last Admin: 07/17/18 21:28 Dose: 2.5 mg - Labs Labs: 07/18/18 05:33 07/18/18 05:33 PT 13.6 SECONDS (9.7-12.2) H 07/16/18 06:10 INR 1.2 07/16/18 06:10 APTT 43 SECONDS (21-34) H D 07/17/18 05:57 - Constitutional Appears: Non-toxic, Chronically Ill - Head Exam Head Exam: NORMOCEPHALIC - Eye Exam Eye Exam: absent: Scleral icterus - ENT Exam ENT Exam: Mucous Membranes Dry - Neck Exam Neck Exam: absent: Lymphadenopathy - Respiratory Exam Respiratory Exam: Decreased Breath Sounds - Cardiovascular Exam Cardiovascular Exam: REGULAR RHYTHM - GI/Abdominal Exam GI & Abdominal Exam: Distended, Soft - Rectal Exam Rectal Exam: Deferred - Exam Exam: NORMAL INSPECTION - Back Exam Back Exam: absent: CVA tenderness (L), CVA tenderness (R) - Neurological Exam Neurological Exam: CN II-XII Intact - Psychiatric Exam Psychiatric exam: Depressed Assessment and Plan (1) NEHA (acute kidney injury) Status: Acute (2) Acute renal failure Status: Acute (3) Acute respiratory failure Status: Acute (4) Aspiration pneumonia Status: Acute (5) Septic shock Status: Acute (6) Urinary tract infection Status: Acute (7) Diabetes mellitus Status: Chronic - Assessment and Plan (Free Text) Assessment: IV rx renewed cont empiric rx for pneumonia sepsis
--- NOTE | 2018-07-18 12:42 | VASCLAB ---
Date of service: 07/17/2018 PROCEDURE: Upper Extremity Venous Duplex Exam HISTORY: nonpitting edema PRIORS: None. TECHNIQUE: Bilateral upper extremity, internal jugular, subclavian, axillary, brachial, ulnar, radial, basilic and upper cephalic veins were evaluated. Flow was assessed with color Doppler, compressibility, assessment of phasic flow and augmentation response. Report prepared by Joni Oh, NICK, RVT FINDINGS: RIGHT: 1. Internal Jugular: 1.1. Compressibility - Fully compressible: Thrombus - None : Flow - Phasic: Augmentation -Normal: Reflux - None. 2. Subclavian: 2.1. Compressibility - Fully compressible: Thrombus - None : Flow - Phasic: Augmentation -Normal: Reflux - None. 3. Axillary: 3.1. Compressibility - Fully compressible: Thrombus - None : Flow - Phasic: Augmentation -Normal: Reflux - None. 4. Brachial: 4.1. Compressibility - Fully compressible: Thrombus - None: Flow - Phasic: Augmentation -Normal: Reflux - None. 5. Ulnar: 5.1. Compressibility - Fully compressible: Thrombus - None: Flow - Phasic: Augmentation -Normal: Reflux - None. 6. Radial: 6.1. Compressibility - Fully compressible: Thrombus - None: Flow - Phasic: Augmentation - Normal: Reflux - None. 7. Cephalic: 7.1. Compressibility - Partial: Thrombus - Acute: Flow - Absent : Augmentation - None: Reflux - None. 8. Basilic: 8.1. Compressibility - Fully compressible: Thrombus - None: Flow - Phasic: Augmentation -Normal: Reflux - None. LEFT: 1. Internal Jugular: 1.1. Compressibility - Fully compressible: Thrombus - None : Flow - Phasic: Augmentation -Normal: Reflux - None. 2. Subclavian: 2.1. Compressibility - Fully compressible: Thrombus - None : Flow - Phasic: Augmentation -Normal: Reflux - None. 3. Axillary: 3.1. Compressibility - Fully compressible: Thrombus - None : Flow - Phasic: Augmentation -Normal: Reflux - None. 4. Brachial: 4.1. Compressibility - Fully compressible: Thrombus - None: Flow - Phasic: Augmentation -Normal: Reflux - None. 5. Ulnar: 5.1. Compressibility - Fully compressible: Thrombus - None: Flow - Phasic: Augmentation -Normal: Reflux - None. 6. Radial: 6.1. Compressibility - Fully compressible: Thrombus - None: Flow - Phasic: Augmentation - Normal: Reflux - None. 7. Cephalic: 7.1. Compressibility - Fully compressible: Thrombus - None: Flow - Phasic: Augmentation -Normal: Reflux - None. 8. Basilic: 8.1. Compressibility - Fully compressible: Thrombus - None: Flow - Phasic: Augmentation -Normal: Reflux - None. OTHER FINDINGS: GUSTAVO Cote notified about the findings. IMPRESSION: Right: No evidence of vein thrombosis of the right upper extremity with excellent venous flow. Normal valve function noted of the right side. Left: No evidence of vein thrombosis of the left upper extremity with excellent venous flow. Normal valve function noted of the left side.
--- NOTE | 2018-07-18 12:44 | VASCLAB ---
Date of service: 07/17/2018 PROCEDURE: Lower Extremity Venous Duplex Exam. HISTORY: nonpitting edema PRIORS: None. TECHNIQUE: Bilateral common femoral, femoral, popliteal and posterior tibial, peroneal and great saphenous veins were evaluated. Flow was assessed with color Doppler, compressibility, assessment of phasic flow and augmentation response. Report prepared by Joni Oh, NICK, RVT FINDINGS: RIGHT: 1. Common Femoral Vein: 1.1. Compressibility - Fully compressible: Thrombus - None : Flow - Phasic: Augmentation -Normal: Reflux - None. 2. Femoral Vein: 2.1. Compressibility - Fully compressible: Thrombus - None : Flow - Phasic: Augmentation -Normal: Reflux - None. 3. Popliteal Vein: 3.1. Compressibility - Fully compressible: Thrombus - None : Flow - Phasic: Augmentation -Normal: Reflux - None. 4. Posterior Tibial Vein: 4.1. Compressibility - Fully compressible: Thrombus - None: Flow - Phasic: Augmentation -Normal: Reflux - None. 5. Peroneal Vein: 5.1. Compressibility - Fully compressible: Thrombus - None: Flow - Phasic: Augmentation -Normal: Reflux - None. 6. Great Saphenous Vein: 6.1. Compressibility - : Thrombus - : Flow - : Augmentation - : Reflux - . LEFT: 1. Common Femoral Vein: 1.1. Compressibility - Partial: Thrombus - Acute: Flow - Reduced : Augmentation -Reduced: Reflux - None. 2. Femoral Vein: 2.1. Compressibility - Partial: Thrombus - Acute: Flow - Reduced : Augmentation -Reduced: Reflux - None. 3. Popliteal Vein: 3.1. Compressibility - Fully compressible: Thrombus - None : Flow - Phasic: Augmentation -Normal: Reflux - None. 4. Posterior Tibial Vein: 4.1. Compressibility - Fully compressible: Thrombus - None: Flow - Phasic: Augmentation -Normal: Reflux - None. 5. Peroneal Vein: 5.1. Compressibility - Fully compressible: Thrombus - None: Flow - Phasic: Augmentation -Normal: Reflux - None. 6. Great Saphenous Vein: 6.1. Compressibility - : Thrombus - : Flow - : Augmentation - : Reflux - . OTHER FINDINGS: GUSTAVO Cote notified about the findings. Impression Right: No evidence of deep or superficial vein thrombosis of the right lower extremity. Normal valve function noted of the right side. Left: Acute thrombosis of the left common femoral and femoral veins with severe reduction of the venous return.
[2018-07-18] MEDS: Dexmedetomidine Hydrochloride 200 MCG in Sodium Chloride 0.9% 48 ML IV PRN (15:16)
[2018-07-18] MEDS ORDERED: Heparin25000 units/250ml 1/2NS 25,000 UNITS/250 ML BAG IV PRN (16:04)
--- NOTE | 2018-07-18 17:57 | CP.PCM.PN ---
Subjective - Date & Time of Evaluation Date of Evaluation: 07/18/18 Time of Evaluation: 17:30 - Subjective Subjective: Hospitalist Progress Note Patient was seen and examined at 5:30 PM 07/18/18 ICU Bed 9 with Charly present Patient is intubated on vent. Is awake but Not following commands. ROS is not possible General: Intubated on vent HEENT: NCA, Pupils are round and reactive to light Cardio: NS1 and NS2, NO M/R/G Respiratory: Diffuse course breath sounds bilaterallly GI: BSx4, Soft, ND, NO HSM, NO guarding Ext: Pulses are strong and equal, Capillary Refill is 2 seconds, NO edema note Neuro: exam not possible at this time 1) Septic Shock Assessment/Plan * Infectious Disease (Dr. Brock) on case-->help appreciated * Tmax: 100.3 F (07/14/18) * Criteria: leukocytosis, tachycardia * Source: aspiration pneumonia and urinary tract infection * 07/07/18: Urine: E. Coli * 07/09/18: Urine: No growth * 07/07/18: Blood culture: no growth after 5 days X2 * 07/09/18 Blood culture: no growth after 5 days X2 * 07/14/18: blood cultures: no growth to date * 07/14/18: sputum culture: yeast species * 07/14/18: Urine culture: no growth * MRSA not detected * Antibiotics changed in light of fever spike on 07/14/18 * Rocephin 2gm IVPB Q12H (active since 07/14/18) * Vancomycin 1 gram IVPB Q24H (active since 07/14/18) 2) Acute Respiratory Failure Pulmonary Edema Bilateral Pleural Effusion and Consolidations Likely Secondary to Aspiration Pneumonia Assessment/Plan * Intubated * Tapered down to Solumedrol 20mg IVP daily * Duonebs RQ6H PRN wheezing * MRSA screen: not detected * Sputum culture 07/09/18, 07/12/18, 07/14/18: yeast * Mycoplasma negative * Legionella was negative * Influenza negative * HIV negative * CT Chest 07/15/18: Moderate to large bilateral pleural effusion and associated consolidations, pathcy grround-glass infiltrates/edema noted within bilateral upper lobes * Rocephin 2gm IVPB Q12H (active since 07/14/18) * Vancomycin 1 gram IVPB Q24H (active since 07/14/18) * Bedside Thoracic U/S 07/17/18 did not reveal enough pleural effusion for Thoracentesis * Lasix 20 mg IV Q12H 3) Ventricular Tachycardia NSTEMI Apical Thrombus Assessment/Plan * Code Blue 07/10: SVT==>VT required amiodarone, magnesium, one shock delivered * Cardiology Dr Francisco on case help appreciated * When patient is stabilized will need further cardiac workup * Echocardiogram (07/07/18): left ventricle systolic function is borderline, ejection fraction is 45-50%, no aortic regurgitation is present, mitral regurgitation is mild. Mild tricuspid regurgitation. mild pulmonary hypertension, mild pulmonic valvular regurgitation * Contrast Echo: Large apical hypokinesis a large 30 x 20 mm soft tissue apical sessile mass suggestive of thrombus overall fraction 40%. Obtain a HUBERT or/consider stress card myopathy if coronary disease is excluded further findings per report * Amiodarone discontinued * Monitor electrolytes * Heparin drip changed to Eliquis 2.5 mg 2x/day 07/18/18 * Aspirin 81 mg PO 1x/day. Considering patient already on Eliquis and to reduce chance of bleeding, Plavix was discontinued 07/18/18. * Switched from Cardizem to Propranolol 1mg IVP Q6H 4) Urinary Tract Infection Assessment/Plan * Infectious disease on board help appreciated * 07/07/18: Urine: E. Coli * 07/09/18: Urine: No growth * 07/14/18: Urine culture: No growth 5) Diabetes Assessment/Plan * HgBA1c: 7.8 * Hypoglycemic protocol * Lantus 20 units subcutaneous at bedtime 6) Acute on Chronic Renal Failure Assessment/Plan * Nephrology (Dr. Hyde) on board--> help appreciated * Patient will likely not need dialysis * Renal function continues to improve 7) Hyperthyroidism? Low TSH, and Free T4 Thyroid Storm Assessment/Plan * Note Thyroid studies taken before amiodarone was given (please advised this is not amiodarone induced her levels were abnormal prior) * Patient does not have prior thyroid history * Endocrinology (Dr. 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 She will need outpatient FNA Bx of the complex Left Lobe cyst (please see full report) * Methimazole 10mg PO TID * Propranolol 5 mg PO TID * Monitor LFTs 8) Anemia Likely Secondary to Chronic Diseases Assessment/Plan * Iron normal, TIBC low, iron sat normal, ferritin normal * Stool occult blood negative * B12 normal * Folate Normal * Improved * Patient is on Eliquis for the Cardiac Apical Thrombus and on Aspirin for the NSTEMI (Plavix was discontinued 07/18/18) 9) Transminitis * Likely secondary to Sepsis and Amiodarone (which was discontinued * Hepatitis serology negative * Trending down 10) Vitamin D deficiency Assessment plan * 50,000 international units once a week for at least 8-12 weeks started on 07/11/18 11) Thrombocytopenia Assessment plan * Related to HIT, Sepsis, vs Methimazole? * Patient was on Heparin Drip through 07/18/18 and then started on Eliquis on this date * Plavix was disontinued 07/18/18 and she is on ASA * Fibrinogen elevated * Pending HIT/RUSTY * Currently normalized 12) 13 mm Left Adrenal Nodule * As seen on CT Chest 07/16/18 * Will need outpatient follow up for cross sectional imaging for better characterization 13) Hypernatremia * Free water 250 ml 3x/day via OGT 14) Prophylactic measure * Protonix 40mg PO BID * Eliquis 2.5 mg PO BID * Bilateral SCDs * Glucerna Feedings via OGT 45 ml/hour * Subclavian line 07/14/18 Disposition: * Per ICU for vent weaning protocol * Diarrrhea: C. diff toxin 07/16/18 is negative. 3 Soft Bowel movements 07/18/18 * When patient is more stable, will need cardiac workup * Bilateral UE and LE Venous Dopplers are negative for DVT Updated Charly who was at bedside as to diagnoses and medications and he expressed understanding. He had no further questions. [place] D.O. Objective - Vital Signs/Intake and Output Vital Signs (last 24 hours): Temp Pulse Resp BP Pulse Ox 98.3 F 75 12 136/65 100 07/18/18 16:00 07/18/18 17:00 07/18/18 17:00 07/18/18 17:14 07/18/18 17:00 Intake and Output: 07/18/18 07/18/18 06:59 18:59 Intake Total 719.4 1416.4 Output Total 650 Balance 69.4 1416.4 - Medications Medications: Current Medications Acetaminophen (Tylenol 325mg Tab) 650 mg PO Q6 PRN PRN Reason: Fever >100.4 F Last Admin: 07/15/18 04:35 Dose: 650 mg Albuterol/Ipratropium (Duoneb 3 Mg/0.5 Mg (3 Ml) Ud) 3 ml INH RQ6 [facility] Last Admin: 07/18/18 14:13 Dose: 3 ml Apixaban (Eliquis) 2.5 mg PO BID [facility] Last Admin: 07/18/18 17:12 Dose: 2.5 mg Aspirin (Aspirin Chewable) 81 mg GT DAILY [facility] Last Admin: 07/18/18 10:19 Dose: 81 mg Ergocalciferol (Drisdol 50,000 Intl Units Cap) 1 cap PO Q7D [facility] Last Admin: 07/18/18 12:07 Dose: 1 cap Furosemide (Lasix) 20 mg IVP BID [facility] Last Admin: 07/18/18 17:14 Dose: 20 mg Vancomycin HCl 1 gm/ Sodium (Chloride) 250 mls @ 166.7 mls/hr IVPB Q24H [facility]; Protocol Last Admin: 07/18/18 17:23 Dose: 166.7 mls/hr Ceftriaxone Sodium 2 gm/ (Sodium Chloride) 100 mls @ 100 mls/hr IVPB Q12H [facility]; Protocol Last Admin: 07/18/18 16:27 Dose: 100 mls/hr Dexmedetomidine HCl 200 mcg/ (Sodium Chloride) 50 mls @ 2.91 mls/hr IV TITR PRN; Protocol PRN Reason: Sedation Last Admin: 07/18/18 15:16 Dose: 0.1 mcg/kg/hr, 1.45 mls/hr Insulin Aspart (Novolog) 0 unit SC Q6 [facility]; Protocol Last Admin: 07/18/18 11:59 Dose: Not Given Insulin Glargine (Lantus) 20 unit SC Q12 [facility] Last Admin: 07/18/18 10:24 Dose: 20 u Lactobacillus Acidophilus (Bacid Acidophilus) 1 cap PO Q12H [facility] Last Admin: 07/18/18 10:21 Dose: 1 cap Methimazole (Tapazole) 10 mg PO TID [facility] Last Admin: 07/18/18 17:12 Dose: 10 mg Pantoprazole Sodium (Protonix Susp) 40 mg PO BID [facility] Last Admin: 07/18/18 17:12 Dose: 40 mg Propranolol HCl (Inderal) 5 mg PO TID [facility] Last Admin: 07/18/18 17:12 Dose: 5 mg Rosuvastatin Calcium (Crestor) 2.5 mg PO HS [facility] Last Admin: 07/17/18 21:28 Dose: 2.5 mg - Labs Labs: 07/18/18 05:33 07/18/18 05:33 PT 13.6 SECONDS (9.7-12.2) H 07/16/18 06:10 INR 1.2 07/16/18 06:10 APTT 43 SECONDS (21-34) H D 07/17/18 05:57
[2018-07-18] MEDS: Rosuvastatin Calcium 2.5 mg Tab PO SCH (21:41)
--- NOTE | 2018-07-19 00:46 | CP.PCM.PN ---
Subjective - Date & Time of Evaluation Date of Evaluation: 07/18/18 Time of Evaluation: 20:30 - Subjective Subjective: patient seen and evaluated On Ventilator Not a candidate for HUBERT or Stress test Recommend medical management with anticoagulation Objective - Vital Signs/Intake and Output Vital Signs (last 24 hours): Temp Pulse Resp BP Pulse Ox 97.5 F L 85 13 125/57 L 100 07/19/18 00:00 07/19/18 00:00 07/19/18 00:00 07/18/18 23:28 07/19/18 00:00 Intake and Output: 07/18/18 07/19/18 18:59 06:59 Intake Total 1712.8 378.4 Output Total 850 Balance 862.8 378.4 - Medications Medications: Current Medications Acetaminophen (Tylenol 325mg Tab) 650 mg PO Q6 PRN PRN Reason: Fever >100.4 F Last Admin: 07/15/18 04:35 Dose: 650 mg Albuterol/Ipratropium (Duoneb 3 Mg/0.5 Mg (3 Ml) Ud) 3 ml INH RQ6 [facility] Last Admin: 07/18/18 19:45 Dose: 3 ml Apixaban (Eliquis) 2.5 mg PO BID [facility] Last Admin: 07/18/18 17:12 Dose: 2.5 mg Aspirin (Aspirin Chewable) 81 mg GT DAILY [facility] Last Admin: 07/18/18 10:19 Dose: 81 mg Ergocalciferol (Drisdol 50,000 Intl Units Cap) 1 cap PO Q7D [facility] Last Admin: 07/18/18 12:07 Dose: 1 cap Furosemide (Lasix) 20 mg IVP BID [facility] Last Admin: 07/18/18 17:14 Dose: 20 mg Vancomycin HCl 1 gm/ Sodium (Chloride) 250 mls @ 166.7 mls/hr IVPB Q24H [facility]; Protocol Last Admin: 07/18/18 17:23 Dose: 166.7 mls/hr Ceftriaxone Sodium 2 gm/ (Sodium Chloride) 100 mls @ 100 mls/hr IVPB Q12H [facility]; Protocol Last Admin: 07/18/18 16:27 Dose: 100 mls/hr Dexmedetomidine HCl 200 mcg/ (Sodium Chloride) 50 mls @ 2.91 mls/hr IV TITR PRN; Protocol PRN Reason: Sedation Last Admin: 07/18/18 15:16 Dose: 0.1 mcg/kg/hr, 1.45 mls/hr Insulin Aspart (Novolog) 0 unit SC Q6 [facility]; Protocol Last Admin: 07/18/18 23:50 Dose: 2 units Insulin Glargine (Lantus) 20 unit SC Q12 [facility] Last Admin: 07/18/18 21:41 Dose: 20 u Lactobacillus Acidophilus (Bacid Acidophilus) 1 cap PO Q12H [facility] Last Admin: 07/18/18 20:04 Dose: 1 cap Methimazole (Tapazole) 10 mg PO TID [facility] Last Admin: 07/18/18 17:12 Dose: 10 mg Pantoprazole Sodium (Protonix Susp) 40 mg PO BID [facility] Last Admin: 07/18/18 17:12 Dose: 40 mg Propranolol HCl (Inderal) 5 mg PO TID [facility] Last Admin: 07/18/18 17:12 Dose: 5 mg Rosuvastatin Calcium (Crestor) 2.5 mg PO HS [facility] Last Admin: 07/18/18 21:41 Dose: 2.5 mg - Labs Labs: 07/18/18 05:33 07/18/18 05:33 PT 13.6 SECONDS (9.7-12.2) H 07/16/18 06:10 INR 1.2 07/16/18 06:10 APTT 43 SECONDS (21-34) H D 07/17/18 05:57
[2018-07-19] MEDS: Albuterol-Ipratrop 3 mg / 0.5 (3 ml) UD INH SCH ×4 (01:16→19:25)
[2018-07-19 04:34] LABS: ABG ALLEN TEST POS; ARTERIAL BLOOD GAS HCO3 30.9 mmol/L (21-28); ARTERIAL BLOOD GAS HEMOGLOBIN 9.4 g/dL (11.7-17.4); ARTERIAL BLOOD GAS O2 SAT 98.5 % (95-98); ARTERIAL BLOOD GAS PCO2 43 mm/Hg (35-45); ARTERIAL BLOOD GAS PH 7.48 (7.35-7.45); ARTERIAL BLOOD GAS PO2 87 mm/Hg (80-100); ARTERIAL BLOOD GAS TCO2 33.3 mmol/L (22-28)
[2018-07-19] MEDS: (Novolog) Insulin Aspart, Recombinant 100 u/ml 10 ml vial SC SCH ×3 (05:06→18:05)
[2018-07-19 06:01] LABS: BASO % 0.2 % (0.0-2.0); EOS # 0.1 K/uL (0.0-0.7); EOS % 1.4 % (0.0-4.0); HEMOGLOBIN 8.8 g/dL (11.0-16.0); LYMPH # 0.8 K/uL (1.0-4.3); LYMPH % 12.7 % (20.0-40.0); MEAN CELL VOLUME 90.3 fL (81.0-99.0); MEAN CORPUSCULAR HEMOGLOBIN 30.7 pg (27.0-31.0); MEAN PLATELET VOLUME 9.6 fL (7.2-11.7); MONO # 0.4 K/uL (0.0-0.8); MONO % 6.4 % (0.0-10.0); NEUT # 5.1 K/uL (1.8-7.0); NEUT % 79.3 % (50.0-75.0); RBC 2.87 Mil/uL (3.80-5.20); RED CELL DISTRIBUTION WIDTH 15.9 % (11.5-14.5); WHITE BLOOD COUNT 6.4 K/uL (4.8-10.8)
[2018-07-19 06:17] LABS: ALB/GLOB RATIO 0.9 (1.0-2.1); ALBUMIN 2.2 g/dL (3.5-5.0); ALT/SGPT 40 U/L (9-52); AST/SGOT 30 U/L (14-36); BLOOD UREA NITROGEN 34 mg/dL (7-17); CALCIUM 7.6 mg/dl (8.6-10.4); GFR NON-AFRICAN AMERICAN > 60
[2018-07-19] MEDS: Lactobacillus Acidophilus 500 MU Cap PO SCH ×2 (08:07→20:32)
--- NOTE | 2018-07-19 08:07 | CP.PCM.PN ---
Subjective - Date & Time of Evaluation Date of Evaluation: 07/19/18 Time of Evaluation: 07:45 - Subjective Subjective: Hospitalist Progress Note Patient was seen and examined at 7:45 AM 07/19/18 ICU Bed 9 Patient is currently undergoing CPAP trial for weening from Vent She had 3 soft bowel movement last night after my exam and one soft nonbloody bowel movement this morning She has roughly 100 ml of urine produced since last night. However this may not be accurate as she does not have a Hernandes but a Pure Wick in place Spoke with Nurse Paula and upon cleaning after bowel movement this morning, there was blanchable erythema noted on the lower buttock area and AloVesta has been applied. Wound care evaluation is pending Precedex was stopped this morning at the time of CPAP trial F/U Vancomycin Trough 5:30 PM 07/19/18 Hyponatremia has improved ROS is not possible as patient is intubated She is following commands in [facility]: Intubated on vent and currently on CPAP trial HEENT: NCA, Pupils are round and reactive to light, EOMI, NO cervical/supraclavicular/submandibular lymphadenopathy Cardio: NS1 and NS2, NO M/R/G Respiratory: Diffuse course breath sounds bilaterallly are decreased and the lungs are more clear to auscultation GI: BSx4, Soft, ND, NO HSM, NO guarding, NO rebound tenderness Ext: Pulses are strong and equal, Capillary Refill is 2 seconds, NO edema noted Neuro: exam not possible at this time Skin: Spoke with Nurse Paula and upon cleaning after bowel movement this morning, there was blanchable erythema noted on the lower buttock area and AloVesta has been applied 1) Septic Shock Assessment/Plan * Infectious Disease (Dr. Brock) on case-->help appreciated * Tmax: 100.3 F (07/14/18) * Criteria: leukocytosis, tachycardia * Source: aspiration pneumonia and urinary tract infection * 07/07/18: Urine: E. Coli * 07/09/18: Urine: No growth * 07/07/18: Blood culture: no growth after 5 days X2 * 07/09/18 Blood culture: no growth after 5 days X2 * 07/14/18: blood cultures: no growth to date * 07/14/18: sputum culture: yeast species * 07/14/18: Urine culture: no growth * MRSA not detected * Antibiotics changed in light of fever spike on 07/14/18 * Rocephin 2gm IVPB Q12H (active since 07/14/18) * Vancomycin 1 gram IVPB Q24H (active since 07/14/18). F/U Vancomycin Trough 5:30 PM 07/19/18 2) Acute Respiratory Failure Pulmonary Edema Bilateral Pleural Effusion and Consolidations Likely Secondary to Aspiration Pneumonia Assessment/Plan * Intubated * Tapered down to Solumedrol 20mg IVP daily * Duonebs RQ6H PRN wheezing * MRSA screen: not detected * Sputum culture 07/09/18, 07/12/18, 07/14/18: yeast * Mycoplasma negative * Legionella was negative * Influenza negative * HIV negative * CT Chest 07/15/18: Moderate to large bilateral pleural effusion and associated consolidations, pathcy grround-glass infiltrates/edema noted within bilateral upper lobes * Rocephin 2gm IVPB Q12H (active since 07/14/18) * Vancomycin 1 gram IVPB Q24H (active since 07/14/18) * Bedside Thoracic U/S 07/17/18 did not reveal enough pleural effusion for Thoracentesis * Lasix 20 mg IV Q12H 3) Ventricular Tachycardia NSTEMI Apical Thrombus Assessment/Plan * Code Blue 07/10: SVT==>VT required amiodarone, magnesium, one shock delivered * Cardiology Dr Francisco on case help appreciated * When patient is stabilized will need further cardiac workup * Echocardiogram (07/07/18): left ventricle systolic function is borderline, ejection fraction is 45-50%, no aortic regurgitation is present, mitral regurgitation is mild. Mild tricuspid regurgitation. mild pulmonary hypertension, mild pulmonic valvular regurgitation * Contrast Echo: Large apical hypokinesis a large 30 x 20 mm soft tissue apical sessile mass suggestive of thrombus overall fraction 40%. Obtain a HUBERT or/consider stress card myopathy if coronary disease is excluded further findings per report * Amiodarone discontinued * Monitor electrolytes * Heparin drip changed to Eliquis 2.5 mg 2x/day 07/18/18 * Aspirin 81 mg PO 1x/day. Considering patient already on Eliquis and to reduce chance of bleeding, Plavix was discontinued 07/18/18. * Switched from Cardizem to Propranolol 1mg IVP Q6H 4) Urinary Tract Infection Assessment/Plan * Infectious disease on board help appreciated * 07/07/18: Urine: E. Coli * 07/09/18: Urine: No growth * 07/14/18: Urine culture: No growth 5) Diabetes Assessment/Plan * HgBA1c: 7.8 * Hypoglycemic protocol * Lantus 20 units subcutaneous at bedtime 6) Acute on Chronic Renal Failure Assessment/Plan * Nephrology (Dr. Hyde) on board--> help appreciated * Patient will likely not need dialysis * Renal function continues to improve 7) Hyperthyroidism? Low TSH, and Free T4 Thyroid Storm Assessment/Plan * Note Thyroid studies taken before amiodarone was given (please advised this is not amiodarone induced her levels were abnormal prior) * Patient does not have prior thyroid history * Endocrinology (Dr. 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 She will need outpatient FNA Bx of the complex Left Lobe cyst (please see full report) * Methimazole 10mg PO TID * Propranolol 5 mg PO TID * Monitor LFTs 8) Anemia Likely Secondary to Chronic Diseases Assessment/Plan * Iron normal, TIBC low, Iron Saturation normal, Ferritin normal * Stool occult blood negative * B12 normal * Folate Normal * Improved * Patient is on Eliquis for the Cardiac Apical Thrombus and on Aspirin for the NSTEMI (Plavix was discontinued 07/18/18) 9) Transminitis * Likely secondary to Sepsis and Amiodarone (which was discontinued * Hepatitis serology negative * Trending down 10) Vitamin D deficiency Assessment plan * 50,000 international units once a week for at least 8-12 weeks started on 07/11/18 11) Thrombocytopenia Assessment plan * Related to HIT, Sepsis, vs Methimazole? * Patient was on Heparin Drip through 07/18/18 and then started on Eliquis on this date * Plavix was disontinued 07/18/18 and she is on ASA * Fibrinogen elevated * Pending HIT/RUSTY * Currently normalized 12) 13 mm Left Adrenal Nodule * As seen on CT Chest 07/16/18 * Will need outpatient follow up for cross sectional imaging for better characterization 13) Hypernatremia * Free water 250 ml 3x/day via OGT * Improved 07/19/18 14) Prophylactic measure * Protonix 40mg PO BID * Eliquis 2.5 mg PO BID * Bilateral SCDs * Glucerna Feedings via OGT 45 ml/hour * Subclavian line 07/14/18 Disposition: * Per ICU for vent weaning protocol * Diarrrhea: C. diff toxin 07/16/18 is negative. 1 Soft Bowel movement morning of 07/19/18 * When patient is more stable, will need cardiac workup: as per Cardiology NO HUBERT or Stress Test at this time * Bilateral UE and LE Venous Dopplers are negative for DVT NO family at bedside at time of exam [place] [facility] Objective - Vital Signs/Intake and Output Vital Signs (last 24 hours): Temp Pulse Resp BP Pulse Ox 98 F 80 12 120/57 L 100 07/19/18 04:00 07/19/18 07:00 07/19/18 07:00 07/19/18 06:28 07/19/18 07:00 Intake and Output: 07/19/18 07/19/18 06:59 18:59 Intake Total 756.8 46.4 Output Total 300 Balance 456.8 46.4 - Medications Medications: Current Medications Acetaminophen (Tylenol 325mg Tab) 650 mg PO Q6 PRN PRN Reason: Fever >100.4 F Last Admin: 07/15/18 04:35 Dose: 650 mg Albuterol/Ipratropium (Duoneb 3 Mg/0.5 Mg (3 Ml) Ud) 3 ml INH RQ6 [facility] Last Admin: 07/19/18 01:16 Dose: 3 ml Apixaban (Eliquis) 2.5 mg PO BID [facility] Last Admin: 07/18/18 17:12 Dose: 2.5 mg Aspirin (Aspirin Chewable) 81 mg GT DAILY [facility] Last Admin: 07/18/18 10:19 Dose: 81 mg Ergocalciferol (Drisdol 50,000 Intl Units Cap) 1 cap PO Q7D [facility] Last Admin: 07/18/18 12:07 Dose: 1 cap Furosemide (Lasix) 20 mg IVP BID [facility] Last Admin: 07/18/18 17:14 Dose: 20 mg Vancomycin HCl 1 gm/ Sodium (Chloride) 250 mls @ 166.7 mls/hr IVPB Q24H [facility]; Protocol Last Admin: 07/18/18 17:23 Dose: 166.7 mls/hr Ceftriaxone Sodium 2 gm/ (Sodium Chloride) 100 mls @ 100 mls/hr IVPB Q12H [facility]; Protocol Last Admin: 07/19/18 04:06 Dose: 100 mls/hr Dexmedetomidine HCl 200 mcg/ (Sodium Chloride) 50 mls @ 2.91 mls/hr IV TITR PRN; Protocol PRN Reason: Sedation Last Admin: 07/18/18 15:16 Dose: 0.1 mcg/kg/hr, 1.45 mls/hr Potassium Chloride (Potassium Chloride 20 Meq/100 Ml) 20 meq in 100 mls @ 50 mls/hr IVPB ONCE ONE Stop: 07/19/18 09:59 Last Admin: 07/19/18 08:01 Dose: 50 mls/hr Insulin Aspart (Novolog) 0 unit SC Q6 [facility]; Protocol Last Admin: 07/19/18 05:06 Dose: Not Given Insulin Glargine (Lantus) 20 unit SC Q12 [facility] Last Admin: 07/18/18 21:41 Dose: 20 u Lactobacillus Acidophilus (Bacid Acidophilus) 1 cap PO Q12H [facility] Last Admin: 07/18/18 20:04 Dose: 1 cap Methimazole (Tapazole) 10 mg PO TID [facility] Last Admin: 07/18/18 17:12 Dose: 10 mg Pantoprazole Sodium (Protonix Susp) 40 mg PO BID [facility] Last Admin: 07/18/18 17:12 Dose: 40 mg Propranolol HCl (Inderal) 5 mg PO TID [facility] Last Admin: 07/18/18 17:12 Dose: 5 mg Rosuvastatin Calcium (Crestor) 2.5 mg PO HS [facility] Last Admin: 07/18/18 21:41 Dose: 2.5 mg - Labs Labs: 07/19/18 05:54 07/19/18 05:54 PT 13.6 SECONDS (9.7-12.2) H 07/16/18 06:10 INR 1.2 07/16/18 06:10 APTT 43 SECONDS (21-34) H D 07/17/18 05:57
--- NOTE | 2018-07-19 08:50 | RAD ---
Date of service: 07/19/2018 HISTORY: s/p intubation COMPARISON: 07/18/2018 FINDINGS: LUNGS: Opacity in lower right lung. Possible pneumonia. Follow-up advised. Left parahilar opacity common nonspecific. Again, possible pneumonia. PLEURA: Follow-up advised. Possible small left pleural effusion. No right pleural effusion. No pneumothorax. CARDIOVASCULAR: Normal heart size. ET tube, NG tube and right subclavian central venous catheter unchanged. OSSEOUS STRUCTURES: No significant abnormalities. VISUALIZED UPPER ABDOMEN: Normal. OTHER FINDINGS: None. IMPRESSION: No significant change.
[2018-07-19] MEDS: Propranolol 5 mg Tab PO SCH ×3 (09:02→17:23)
[2018-07-19] MEDS: Pantoprazole 40 mg Susp UD PO SCH ×2 (09:02→17:23)
--- NOTE | 2018-07-19 09:55 | CP.CCUPN ---
<Anabel Hinkle L - Last Filed: 07/19/18 13:33> CCU Subjective - Physician Review Subjective (Free Text): Resident Critical Care Progress Note Patient examined at bedside. No acute events overnight. Patient is intubated, much more alert today. Follows commands, responds to questioning. Became tachypneic on cpap trial. Will reattempt cpap trial tomorrow. Critical Care Time Spent (in minutes): 35 CCU Objective - Vital Signs / Intake & Output Vital Signs (Last 4 hours): Vital Signs Temp Pulse Resp BP Pulse Ox 07/19/18 09:02 131/63 07/19/18 08:00 99.3 F 86 16 100 07/19/18 07:28 88 12 123/63 100 07/19/18 07:00 80 12 100 07/19/18 06:28 72 12 120/57 L 100 07/19/18 06:00 72 12 100 Intake and Output (Last 8hrs): Intake & Output 07/18/18 07/19/18 07/19/18 22:59 06:59 14:59 Intake Total 1079.2 471.2 271.8 Output Total 850 300 Balance 229.2 171.2 271.8 Weight 129 lb 11.2 oz Intake: IV 8 29 Intake, IV Amount 361.2 111.2 52.8 Right Distal Port 250 100 50 Subclavian Right Medial Port 11.2 11.2 2.8 Subclavian Right Proximal Port 100 Subclavian Tube Feeding 360 360 90 Other 350 100 Output: Urine 850 300 Urine, Voided 850 300 Other: # Bowel Movements 1 1 1 - Physical Exam Head: Positive for: Atraumatic, Normocephalic Pupils: Positive for: PERRL. Negative for: Sluggish, Pinpoint Extroacular Muscles: Positive for: EOMI. Negative for: Gaze Palsy Conjunctiva: Positive for: Normal. Negative for: Injected, Icteric Mouth: Positive for: Moist Mucous Membranes Nose (External): Positive for: Atraumatic. Negative for: Abrasion, Contusion, Laceration Nose (Internal): Positive for: No Active Bleeding. Negative for: Epistaxis Neck: Positive for: Normal Range of Motion, Trachea Midline. Negative for: JVD Respiratory/Chest: Positive for: Good Air Exchange, Rhonchi (mild ronchi in bilateral bases), Other (intubated and ventilated). Negative for: Wheezes, Rales Cardiovascular: Positive for: Normal S1, S2, Peripheal Pulses Present, Tachycardic. Negative for: Regular Rate and Rhythm Abdomen: Positive for: Normal Bowel Sounds. Negative for: Tenderness, Distention, Rebound, Guarding Upper Extremity: Positive for: Normal Inspection, NORMAL PULSES. Negative for: Cyanosis, Edema Lower Extremity: Positive for: Normal Inspection. Negative for: Edema, CALF TENDERNESS Skin: Positive for: Warm, Dry, Normal Color Psychiatric: Positive for: Alert - Medications Active Medications: Active Medications Generic Name Dose Route Start Last Admin Trade Name Freq PRN Reason Stop Dose Admin Acetaminophen 650 mg 07/12/18 15:57 07/15/18 04:35 Tylenol 325mg Tab PO 650 mg Q6 PRN Administration Fever >100.4 F Albuterol/Ipratropium 3 ml 07/14/18 20:00 07/19/18 08:43 Duoneb 3 Mg/0.5 Mg (3 Ml) Ud INH 3 ml RQ6 MANOLO Administration Apixaban 2.5 mg 07/18/18 18:00 07/19/18 09:03 Eliquis PO 2.5 mg BID MANOLO Administration Aspirin 81 mg 07/17/18 10:00 07/19/18 09:02 Aspirin Chewable GT 81 mg DAILY MANOLO Administration Ergocalciferol 1 cap 07/11/18 12:45 07/18/18 12:07 Drisdol 50,000 Intl Units Cap PO 1 cap Q7D MANOLO Administration Furosemide 20 mg 07/17/18 18:00 07/19/18 09:02 Lasix IVP 20 mg BID MANOLO Administration Vancomycin HCl 1 gm/ Sodium 250 mls @ 166.7 mls/hr 07/14/18 18:00 07/18/18 17:23 Chloride IVPB 166.7 mls/hr Q24H MANOLO Administration Protocol Ceftriaxone Sodium 2 gm/ 100 mls @ 100 mls/hr 07/14/18 17:00 07/19/18 04:06 Sodium Chloride IVPB 100 mls/hr Q12H MANOLO Administration Protocol Dexmedetomidine HCl 200 mcg/ 50 mls @ 2.91 mls/hr 07/15/18 19:55 07/19/18 08:03 Sodium Chloride IV 0 mcg/kg/hr TITR PRN 0 mls/hr Sedation Titration Protocol 0.2 MCG/KG/HR Potassium Chloride 20 meq in 100 mls @ 50 mls/hr 07/19/18 08:00 07/19/18 08:01 Potassium Chloride 20 Meq/100 Ml IVPB 07/19/18 09:59 50 mls/hr ONCE ONE Administration Insulin Aspart 0 unit 07/11/18 08:28 07/19/18 05:06 Novolog SC Not Given Q6 MANOLO Protocol Insulin Glargine 20 unit 07/17/18 09:46 07/18/18 21:41 Lantus SC 20 u Q12 MANOLO Administration Lactobacillus Acidophilus 1 cap 07/08/18 20:00 07/19/18 08:07 Bacid Acidophilus PO 1 cap Q12H MANOLO Administration Methimazole 10 mg 07/11/18 10:00 07/19/18 09:02 Tapazole PO 10 mg TID MANOLO Administration Pantoprazole Sodium 40 mg 07/11/18 10:00 07/19/18 09:02 Protonix Susp PO 40 mg BID MANOLO Administration Propranolol HCl 5 mg 07/16/18 10:00 07/19/18 09:02 Inderal PO 5 mg TID MANOLO Administration Rosuvastatin Calcium 2.5 mg 07/13/18 22:00 07/18/18 21:41 Crestor PO 2.5 mg HS MANOLO Administration - Patient Studies Lab Studies: Microbiology Studies 07/14/18 13:01 Blood Culture - Preliminary Blood NO GROWTH AFTER 4 DAYS 07/14/18 13:01 Blood Culture - Preliminary Blood NO GROWTH AFTER 4 DAYS 07/10/18 11:01 Mycobacterial Culture - Preliminary Other: Please Indicate Lab Studies 07/19/18 07/19/18 07/19/18 Range/Units 05:54 05:54 05:04 WBC 6.4 (4.8-10.8) K/uL RBC 2.87 L (3.80-5.20) Mil/uL Hgb 8.8 L (11.0-16.0) g/dL Hct 25.9 L (34.0-47.0) % MCV 90.3 (81.0-99.0) fL MCH 30.7 (27.0-31.0) pg MCHC 34.0 (33.0-37.0) g/dL RDW 15.9 H (11.5-14.5) % Plt Count 125 L (130-400) K/uL MPV 9.6 (7.2-11.7) fL Neut % (Auto) 79.3 H (50.0-75.0) % Lymph % (Auto) 12.7 L (20.0-40.0) % [place] % (Auto) 6.4 (0.0-10.0) % Eos % (Auto) 1.4 (0.0-4.0) % Baso % (Auto) 0.2 (0.0-2.0) % Neut # (Auto) 5.1 (1.8-7.0) K/uL Lymph # (Auto) 0.8 L (1.0-4.3) K/uL [place] # (Auto) 0.4 (0.0-0.8) K/uL Eos # (Auto) 0.1 (0.0-0.7) K/uL Baso # (Auto) 0.0 (0.0-0.2) K/uL Puncture Site pCO2 (35-45) mm/Hg pO2 (80-100) mm/Hg HCO3 (21-28) mmol/L ABG pH (7.35-7.45) ABG Total CO2 (22-28) mmol/L ABG O2 Saturation (95-98) % ABG Base Excess (-2.0-3.0) mmol/L ABG Hemoglobin (11.7-17.4) g/dL ABG Carboxyhemoglobin (0.5-1.5) % POC ABG HHb (Measured) (0.0-5.0) % ABG Methemoglobin (0.0-3.0) % Kevon Test A-a O2 Difference mm/Hg Respiratory Index Hgb O2 Saturation (95.0-98.0) % Vent Mode Mechanical Rate FiO2 % Tidal Volume PEEP Sodium 144 (132-148) mmol/L Potassium 3.4 L (3.6-5.2) mmol/L Chloride 109 H (98-107) mmol/L Carbon Dioxide 29 (22-30) mmol/L Anion Gap 10 (10-20) BUN 34 H (7-17) mg/dL Creatinine 0.9 (0.7-1.2) mg/dL Est GFR ( Amer) > 60 Est GFR (Non-Af Amer) > 60 POC Glucose (mg/dL) 123 H (65-110) mg/dL Random Glucose 142 H (65-105) mg/dL Calcium 7.6 L (8.6-10.4) mg/dl Phosphorus 2.8 (2.5-4.5) mg/dL Magnesium 1.8 (1.6-2.3) mg/dL Total Bilirubin 0.3 (0.2-1.3) mg/dL AST 30 (14-36) U/L ALT 40 (9-52) U/L Alkaline Phosphatase 113 (38-126) U/L Total Protein 4.6 L (6.3-8.3) g/dL Albumin 2.2 L (3.5-5.0) g/dL Globulin 2.4 (2.2-3.9) gm/dL Albumin/Globulin Ratio 0.9 L (1.0-2.1) 07/19/18 07/18/18 07/18/18 Range/Units 04:30 23:37 17:45 WBC (4.8-10.8) K/uL RBC (3.80-5.20) Mil/uL Hgb (11.0-16.0) g/dL Hct (34.0-47.0) % MCV (81.0-99.0) fL MCH (27.0-31.0) pg MCHC (33.0-37.0) g/dL RDW (11.5-14.5) % Plt Count (130-400) K/uL MPV (7.2-11.7) fL Neut % (Auto) (50.0-75.0) % Lymph % (Auto) (20.0-40.0) % [place] % (Auto) (0.0-10.0) % Eos % (Auto) (0.0-4.0) % Baso % (Auto) (0.0-2.0) % Neut # (Auto) (1.8-7.0) K/uL Lymph # (Auto) (1.0-4.3) K/uL [place] # (Auto) (0.0-0.8) K/uL Eos # (Auto) (0.0-0.7) K/uL Baso # (Auto) (0.0-0.2) K/uL Puncture Site Rr pCO2 43 (35-45) mm/Hg pO2 87 (80-100) mm/Hg HCO3 30.9 H (21-28) mmol/L ABG pH 7.48 H (7.35-7.45) ABG Total CO2 33.3 H (22-28) mmol/L ABG O2 Saturation 98.5 H (95-98) % ABG Base Excess 7.7 H (-2.0-3.0) mmol/L ABG Hemoglobin 9.4 L (11.7-17.4) g/dL ABG Carboxyhemoglobin 2.0 H (0.5-1.5) % POC ABG HHb (Measured) 1.5 (0.0-5.0) % ABG Methemoglobin 1.0 (0.0-3.0) % Kevon Test Pos A-a O2 Difference 216.0 mm/Hg Respiratory Index 2.5 Hgb O2 Saturation 95.6 (95.0-98.0) % Vent Mode Prvc Mechanical Rate 12 FiO2 50.0 % Tidal Volume 450 PEEP 5 Sodium (132-148) mmol/L Potassium (3.6-5.2) mmol/L Chloride (98-107) mmol/L Carbon Dioxide (22-30) mmol/L Anion Gap (10-20) BUN (7-17) mg/dL Creatinine (0.7-1.2) mg/dL Est GFR ( Amer) Est GFR (Non-Af Amer) POC Glucose (mg/dL) 153 H 128 H (65-110) mg/dL Random Glucose (65-105) mg/dL Calcium (8.6-10.4) mg/dl Phosphorus (2.5-4.5) mg/dL Magnesium (1.6-2.3) mg/dL Total Bilirubin (0.2-1.3) mg/dL AST (14-36) U/L ALT (9-52) U/L Alkaline Phosphatase (38-126) U/L Total Protein (6.3-8.3) g/dL Albumin (3.5-5.0) g/dL Globulin (2.2-3.9) gm/dL Albumin/Globulin Ratio (1.0-2.1) 07/18/18 07/18/18 Range/Units 11:16 10:17 WBC (4.8-10.8) K/uL RBC (3.80-5.20) Mil/uL Hgb (11.0-16.0) g/dL Hct (34.0-47.0) % MCV (81.0-99.0) fL MCH (27.0-31.0) pg MCHC (33.0-37.0) g/dL RDW (11.5-14.5) % Plt Count (130-400) K/uL MPV (7.2-11.7) fL Neut % (Auto) (50.0-75.0) % Lymph % (Auto) (20.0-40.0) % [place] % (Auto) (0.0-10.0) % Eos % (Auto) (0.0-4.0) % Baso % (Auto) (0.0-2.0) % Neut # (Auto) (1.8-7.0) K/uL Lymph # (Auto) (1.0-4.3) K/uL [place] # (Auto) (0.0-0.8) K/uL Eos # (Auto) (0.0-0.7) K/uL Baso # (Auto) (0.0-0.2) K/uL Puncture Site pCO2 (35-45) mm/Hg pO2 (80-100) mm/Hg HCO3 (21-28) mmol/L ABG pH (7.35-7.45) ABG Total CO2 (22-28) mmol/L ABG O2 Saturation (95-98) % ABG Base Excess (-2.0-3.0) mmol/L ABG Hemoglobin (11.7-17.4) g/dL ABG Carboxyhemoglobin (0.5-1.5) % POC ABG HHb (Measured) (0.0-5.0) % ABG Methemoglobin (0.0-3.0) % Kevon Test A-a O2 Difference mm/Hg Respiratory Index Hgb O2 Saturation (95.0-98.0) % Vent Mode Mechanical Rate FiO2 % Tidal Volume PEEP Sodium (132-148) mmol/L Potassium (3.6-5.2) mmol/L Chloride (98-107) mmol/L Carbon Dioxide (22-30) mmol/L Anion Gap (10-20) BUN (7-17) mg/dL Creatinine (0.7-1.2) mg/dL Est GFR ( Amer) Est GFR (Non-Af Amer) POC Glucose (mg/dL) 131 H 110 (65-110) mg/dL Random Glucose (65-105) mg/dL Calcium (8.6-10.4) mg/dl Phosphorus (2.5-4.5) mg/dL Magnesium (1.6-2.3) mg/dL Total Bilirubin (0.2-1.3) mg/dL AST (14-36) U/L ALT (9-52) U/L Alkaline Phosphatase (38-126) U/L Total Protein (6.3-8.3) g/dL Albumin (3.5-5.0) g/dL Globulin (2.2-3.9) gm/dL Albumin/Globulin Ratio (1.0-2.1) Laboratory Results - last 24 hr 07/18/18 07/18/18 07/18/18 10:17 11:16 17:45 WBC RBC Hgb Hct MCV MCH MCHC RDW Plt Count MPV Neut % (Auto) Lymph % (Auto) [place] % (Auto) Eos % (Auto) Baso % (Auto) Neut # (Auto) Lymph # (Auto) [place] # (Auto) Eos # (Auto) Baso # (Auto) Puncture Site pCO2 pO2 HCO3 ABG pH ABG Total CO2 ABG O2 Saturation ABG Base Excess ABG Hemoglobin ABG Carboxyhemoglobin POC ABG HHb (Measured) ABG Methemoglobin Kevon Test A-a O2 Difference Respiratory Index Hgb O2 Saturation Vent Mode Mechanical Rate FiO2 Tidal Volume PEEP Sodium Potassium Chloride Carbon Dioxide Anion Gap BUN Creatinine Est GFR ( Amer) Est GFR (Non-Af Amer) POC Glucose (mg/dL) 110 131 H 128 H Random Glucose Calcium Phosphorus Magnesium Total Bilirubin AST ALT Alkaline Phosphatase Total Protein Albumin Globulin Albumin/Globulin Ratio 07/18/18 07/19/18 07/19/18 23:37 04:30 05:04 WBC RBC Hgb Hct MCV MCH MCHC RDW Plt Count MPV Neut % (Auto) Lymph % (Auto) [place] % (Auto) Eos % (Auto) Baso % (Auto) Neut # (Auto) Lymph # (Auto) [place] # (Auto) Eos # (Auto) Baso # (Auto) Puncture Site Rr pCO2 43 pO2 87 HCO3 30.9 H ABG pH 7.48 H ABG Total CO2 33.3 H ABG O2 Saturation 98.5 H ABG Base Excess 7.7 H ABG Hemoglobin 9.4 L ABG Carboxyhemoglobin 2.0 H POC ABG HHb (Measured) 1.5 ABG Methemoglobin 1.0 Kevon Test Pos A-a O2 Difference 216.0 Respiratory Index 2.5 Hgb O2 Saturation 95.6 Vent Mode Prvc Mechanical Rate 12 FiO2 50.0 Tidal Volume 450 PEEP 5 Sodium Potassium Chloride Carbon Dioxide Anion Gap BUN Creatinine Est GFR ( Amer) Est GFR (Non-Af Amer) POC Glucose (mg/dL) 153 H 123 H Random Glucose Calcium Phosphorus Magnesium Total Bilirubin AST ALT Alkaline Phosphatase Total Protein Albumin Globulin Albumin/Globulin Ratio 07/19/18 07/19/18 05:54 05:54 WBC 6.4 RBC 2.87 L Hgb 8.8 L Hct 25.9 L MCV 90.3 MCH 30.7 MCHC 34.0 RDW 15.9 H Plt Count 125 L MPV 9.6 Neut % (Auto) 79.3 H Lymph % (Auto) 12.[address] [place] % (Auto) 6.4 Eos % (Auto) 1.4 Baso % (Auto) 0.2 Neut # (Auto) 5.1 Lymph # (Auto) 0.[address] [place] # (Auto) 0.4 Eos # (Auto) 0.1 Baso # (Auto) 0.0 Puncture Site pCO2 pO2 HCO3 ABG pH ABG Total CO2 ABG O2 Saturation ABG Base Excess ABG Hemoglobin ABG Carboxyhemoglobin POC ABG HHb (Measured) ABG Methemoglobin Kevon Test A-a O2 Difference Respiratory Index Hgb O2 Saturation Vent Mode Mechanical Rate FiO2 Tidal Volume PEEP Sodium 144 Potassium 3.4 L Chloride 109 H Carbon Dioxide 29 Anion Gap 10 BUN 34 H Creatinine 0.9 Est GFR ( Amer) > 60 Est GFR (Non-Af Amer) > 60 POC Glucose (mg/dL) Random Glucose 142 H Calcium 7.6 L Phosphorus 2.8 Magnesium 1.8 Total Bilirubin 0.3 AST 30 ALT 40 Alkaline Phosphatase 113 Total Protein 4.6 L Albumin 2.2 L Globulin 2.4 Albumin/Globulin Ratio 0.9 L Fingerstick Blood Sugar Results: 128 Review of Systems - Review of Systems Systems not reviewed;Unavailable: Intubated Assessment/Plan - Assessment and Plan (Free Text) Assessment: This is a 52 yo female with PMH of DM2 and hypercholesterolemia who presented to with cough, post-tussive emesis, and malaise x2-3 weeks. She was admitted to the ICU for respiratory failure and acute renal failure. Remains intubated. Plan: Neuro: - anoxic brain injury - sedated on precedex Pulm: - hypoxic respiratory failure secondary to pulmonary congestion, renal failure - Goal is SaO2 > 92% and paO2 > 55 - Duonebs 2 ml INH RQ4 CV: - cardiac arrest from unknown etiology - Cardiology consulted. Appreciate recs. 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 Neville Hinkle PGY-1 - Date & Time Date: 07/19/18 Time: 08:00 <Errol Lozada - Last Filed: 07/19/18 16:23> CCU Subjective - Physician Review Critical Care Time Spent (in minutes): 40 CCU Objective - Vital Signs / Intake & Output Vital Signs (Last 4 hours): Vital Signs Pulse Resp BP Pulse Ox 07/19/18 15:00 138 H 15 100 07/19/18 14:28 127 H 15 147/63 100 07/19/18 14:00 147 H 27 H 94 L 07/19/18 13:28 105 H 34 H 128/69 100 07/19/18 13:00 103 H 25 H 100 07/19/18 12:28 101 H 26 H 132/77 100 Intake and Output (Last 8hrs): Intake & Output 07/19/18 07/19/18 07/19/18 06:59 14:59 22:59 Intake Total 471.2 509.6 4.2 Output Total 300 475 Balance 171.2 509.6 -470.8 Weight 129 lb 11.2 oz Intake: IV 34 0 Intake, IV Amount 111.2 105.6 4.2 Right Distal Port 100 100 Subclavian Right Medial Port 11.2 5.6 4.2 Subclavian Tube Feeding 360 90 0 Other 280 Output: Urine 300 475 Urine, Voided 300 475 Other: # Bowel Movements 1 1 - Medications Active Medications: Active Medications Generic Name Dose Route Start Last Admin Trade Name Freq PRN Reason Stop Dose Admin Acetaminophen 650 mg 07/12/18 15:57 07/15/18 04:35 Tylenol 325mg Tab PO 650 mg Q6 PRN Administration Fever >100.4 F Acetylcysteine 4 ml 07/19/18 14:01 07/19/18 14:20 Acetylcysteine 20% INH 4 ml RQ6 MANOLO Administration Albuterol/Ipratropium 3 ml 07/14/18 20:00 07/19/18 14:20 Duoneb 3 Mg/0.5 Mg (3 Ml) Ud INH 3 ml RQ6 MANOLO Administration Apixaban 2.5 mg 07/18/18 18:00 07/19/18 09:03 Eliquis PO 2.5 mg BID MANOLO Administration Aspirin 81 mg 07/17/18 10:00 07/19/18 09:02 Aspirin Chewable GT 81 mg DAILY MANOLO Administration Ergocalciferol 1 cap 07/11/18 12:45 07/18/18 12:07 Drisdol 50,000 Intl Units Cap PO 1 cap Q7D MANOLO Administration Furosemide 20 mg 07/17/18 18:00 07/19/18 09:02 Lasix IVP 20 mg BID MANOLO Administration Vancomycin HCl 1 gm/ Sodium 250 mls @ 166.7 mls/hr 07/14/18 18:00 07/18/18 17:23 Chloride IVPB 166.7 mls/hr Q24H MANOLO Administration Protocol Ceftriaxone Sodium 2 gm/ 100 mls @ 100 mls/hr 07/14/18 17:00 07/19/18 04:06 Sodium Chloride IVPB 100 mls/hr Q12H MANOLO Administration Protocol Dexmedetomidine HCl 200 mcg/ 50 mls @ 2.91 mls/hr 07/15/18 19:55 07/19/18 15:00 Sodium Chloride IV 0.3 mcg/kg/hr TITR PRN 4.36 mls/hr Sedation Titration Protocol 0.2 MCG/KG/HR Insulin Aspart 0 unit 07/11/18 08:28 07/19/18 11:42 Novolog SC Not Given Q6 MANOLO Protocol Insulin Glargine 20 unit 07/17/18 09:46 07/19/18 09:58 Lantus SC Not Given Q12 MANOLO Lactobacillus Acidophilus 1 cap 07/08/18 20:00 07/19/18 08:07 Bacid Acidophilus PO 1 cap Q12H MANOLO Administration Methimazole 10 mg 07/11/18 10:00 07/19/18 13:02 Tapazole PO 10 mg TID MANOLO Administration Pantoprazole Sodium 40 mg 07/11/18 10:00 07/19/18 09:02 Protonix Susp PO 40 mg BID MANOLO Administration Propranolol HCl 5 mg 07/16/18 10:00 07/19/18 13:02 Inderal PO 5 mg TID MANOLO Administration Rosuvastatin Calcium 2.5 mg 07/13/18 22:00 07/18/18 21:41 Crestor PO 2.5 mg HS MANOLO Administration - Patient Studies Lab Studies: Microbiology Studies 07/14/18 13:01 Blood Culture - Final Blood NO GROWTH AFTER 5 DAYS Gram Stain - Final TEST NOT PERFORMED 07/14/18 13:01 Blood Culture - Final Blood NO GROWTH AFTER 5 DAYS Gram Stain - Final TEST NOT PERFORMED Lab Studies 07/19/18 07/19/18 07/19/18 Range/Units 14:13 05:54 05:54 WBC 6.4 (4.8-10.8) K/uL RBC 2.87 L (3.80-5.20) Mil/uL Hgb 8.8 L (11.0-16.0) g/dL Hct 25.9 L (34.0-47.0) % MCV 90.3 (81.0-99.0) fL MCH 30.7 (27.0-31.0) pg MCHC 34.0 (33.0-37.0) g/dL RDW 15.9 H (11.5-14.5) % Plt Count 125 L (130-400) K/uL MPV 9.6 (7.2-11.7) fL Neut % (Auto) 79.3 H (50.0-75.0) % Lymph % (Auto) 12.7 L (20.0-40.0) % [place] % (Auto) 6.4 (0.0-10.0) % Eos % (Auto) 1.4 (0.0-4.0) % Baso % (Auto) 0.2 (0.0-2.0) % Neut # (Auto) 5.1 (1.8-7.0) K/uL Lymph # (Auto) 0.8 L (1.0-4.3) K/uL [place] # (Auto) 0.4 (0.0-0.8) K/uL Eos # (Auto) 0.1 (0.0-0.7) K/uL Baso # (Auto) 0.0 (0.0-0.2) K/uL Puncture Site pCO2 (35-45) mm/Hg pO2 (80-100) mm/Hg HCO3 (21-28) mmol/L ABG pH (7.35-7.45) ABG Total CO2 (22-28) mmol/L ABG O2 Saturation (95-98) % ABG Base Excess (-2.0-3.0) mmol/L ABG Hemoglobin (11.7-17.4) g/dL ABG Carboxyhemoglobin (0.5-1.5) % POC ABG HHb (Measured) (0.0-5.0) % ABG Methemoglobin (0.0-3.0) % Kevon Test A-a O2 Difference mm/Hg Respiratory Index Hgb O2 Saturation (95.0-98.0) % Vent Mode Mechanical Rate FiO2 % Tidal Volume PEEP Sodium 144 (132-148) mmol/L Potassium 3.4 L (3.6-5.2) mmol/L Chloride 109 H (98-107) mmol/L Carbon Dioxide 29 (22-30) mmol/L Anion Gap 10 (10-20) BUN 34 H (7-17) mg/dL Creatinine 0.9 (0.7-1.2) mg/dL Est GFR ( Amer) > 60 Est GFR (Non-Af Amer) > 60 POC Glucose (mg/dL) 122 H (65-110) mg/dL Random Glucose 142 H (65-105) mg/dL Calcium 7.6 L (8.6-10.4) mg/dl Phosphorus 2.8 (2.5-4.5) mg/dL Magnesium 1.8 (1.6-2.3) mg/dL Total Bilirubin 0.3 (0.2-1.3) mg/dL AST 30 (14-36) U/L ALT 40 (9-52) U/L Alkaline Phosphatase 113 (38-126) U/L Total Protein 4.6 L (6.3-8.3) g/dL Albumin 2.2 L (3.5-5.0) g/dL Globulin 2.4 (2.2-3.9) gm/dL Albumin/Globulin Ratio 0.9 L (1.0-2.1) Thyroid Stim Immunoglob (<140) % baseline 07/19/18 07/19/18 07/18/18 Range/Units 05:04 04:30 23:37 WBC (4.8-10.8) K/uL RBC (3.80-5.20) Mil/uL Hgb (11.0-16.0) g/dL Hct (34.0-47.0) % MCV (81.0-99.0) fL MCH (27.0-31.0) pg MCHC (33.0-37.0) g/dL RDW (11.5-14.5) % Plt Count (130-400) K/uL MPV (7.2-11.7) fL Neut % (Auto) (50.0-75.0) % Lymph % (Auto) (20.0-40.0) % [place] % (Auto) (0.0-10.0) % Eos % (Auto) (0.0-4.0) % Baso % (Auto) (0.0-2.0) % Neut # (Auto) (1.8-7.0) K/uL Lymph # (Auto) (1.0-4.3) K/uL [place] # (Auto) (0.0-0.8) K/uL Eos # (Auto) (0.0-0.7) K/uL Baso # (Auto) (0.0-0.2) K/uL Puncture Site Rr pCO2 43 (35-45) mm/Hg pO2 87 (80-100) mm/Hg HCO3 30.9 H (21-28) mmol/L ABG pH 7.48 H (7.35-7.45) ABG Total CO2 33.3 H (22-28) mmol/L ABG O2 Saturation 98.5 H (95-98) % ABG Base Excess 7.7 H (-2.0-3.0) mmol/L ABG Hemoglobin 9.4 L (11.7-17.4) g/dL ABG Carboxyhemoglobin 2.0 H (0.5-1.5) % POC ABG HHb (Measured) 1.5 (0.0-5.0) % ABG Methemoglobin 1.0 (0.0-3.0) % [place] Test Pos A-a O2 Difference 216.0 mm/Hg Respiratory Index 2.5 Hgb O2 Saturation 95.6 (95.0-98.0) % Vent Mode Prvc Mechanical Rate 12 FiO2 50.0 % Tidal Volume 450 PEEP 5 Sodium (132-148) mmol/L Potassium (3.6-5.2) mmol/L Chloride (98-107) mmol/L Carbon Dioxide (22-30) mmol/L Anion Gap (10-20) BUN (7-17) mg/dL Creatinine (0.7-1.2) mg/dL Est GFR ( Amer) Est GFR (Non-Af Amer) POC Glucose (mg/dL) 123 H 153 H (65-110) mg/dL Random Glucose (65-105) mg/dL Calcium (8.6-10.4) mg/dl Phosphorus (2.5-4.5) mg/dL Magnesium (1.6-2.3) mg/dL Total Bilirubin (0.2-1.3) mg/dL AST (14-36) U/L ALT (9-52) U/L Alkaline Phosphatase (38-126) U/L Total Protein (6.3-8.3) g/dL Albumin (3.5-5.0) g/dL Globulin (2.2-3.9) gm/dL Albumin/Globulin Ratio (1.0-2.1) Thyroid Stim Immunoglob (<140) % baseline 07/18/18 07/16/18 Range/Units 17:45 10:25 WBC (4.8-10.8) K/uL RBC (3.80-5.20) Mil/uL Hgb (11.0-16.0) g/dL Hct (34.0-47.0) % MCV (81.0-99.0) fL MCH (27.0-31.0) pg MCHC (33.0-37.0) g/dL RDW (11.5-14.5) % Plt Count (130-400) K/uL MPV (7.2-11.7) fL Neut % (Auto) (50.0-75.0) % Lymph % (Auto) (20.0-40.0) % [place] % (Auto) (0.0-10.0) % Eos % (Auto) (0.0-4.0) % Baso % (Auto) (0.0-2.0) % Neut # (Auto) (1.8-7.0) K/uL Lymph # (Auto) (1.0-4.3) K/uL [place] # (Auto) (0.0-0.8) K/uL Eos # (Auto) (0.0-0.7) K/uL Baso # (Auto) (0.0-0.2) K/uL Puncture Site pCO2 (35-45) mm/Hg pO2 (80-100) mm/Hg HCO3 (21-28) mmol/L ABG pH (7.35-7.45) ABG Total CO2 (22-28) mmol/L ABG O2 Saturation (95-98) % ABG Base Excess (-2.0-3.0) mmol/L ABG Hemoglobin (11.7-17.4) g/dL ABG Carboxyhemoglobin (0.5-1.5) % POC ABG HHb (Measured) (0.0-5.0) % ABG Methemoglobin (0.0-3.0) % [place] Test A-a O2 Difference mm/Hg Respiratory Index Hgb O2 Saturation (95.0-98.0) % Vent Mode Mechanical Rate FiO2 % Tidal Volume PEEP Sodium (132-148) mmol/L Potassium (3.6-5.2) mmol/L Chloride (98-107) mmol/L Carbon Dioxide (22-30) mmol/L Anion Gap (10-20) BUN (7-17) mg/dL Creatinine (0.7-1.2) mg/dL Est GFR ( Amer) Est GFR (Non-Af Amer) POC Glucose (mg/dL) 128 H (65-110) mg/dL Random Glucose (65-105) mg/dL Calcium (8.6-10.4) mg/dl Phosphorus (2.5-4.5) mg/dL Magnesium (1.6-2.3) mg/dL Total Bilirubin (0.2-1.3) mg/dL AST (14-36) U/L ALT (9-52) U/L Alkaline Phosphatase (38-126) U/L Total Protein (6.3-8.3) g/dL Albumin (3.5-5.0) g/dL Globulin (2.2-3.9) gm/dL Albumin/Globulin Ratio (1.0-2.1) Thyroid Stim Immunoglob <89 (<140) % baseline Laboratory Results - last 24 hr 07/16/18 07/18/18 07/18/18 10:25 17:45 23:37 WBC RBC Hgb Hct MCV MCH MCHC RDW Plt Count MPV Neut % (Auto) Lymph % (Auto) [place] % (Auto) Eos % (Auto) Baso % (Auto) Neut # (Auto) Lymph # (Auto) [place] # (Auto) Eos # (Auto) Baso # (Auto) Puncture Site pCO2 pO2 HCO3 ABG pH ABG Total CO2 ABG O2 Saturation ABG Base Excess ABG Hemoglobin ABG Carboxyhemoglobin POC ABG HHb (Measured) ABG Methemoglobin [place] Test A-a O2 Difference Respiratory Index Hgb O2 Saturation Vent Mode Mechanical Rate FiO2 Tidal Volume PEEP Sodium Potassium Chloride Carbon Dioxide Anion Gap BUN Creatinine Est GFR ( Amer) Est GFR (Non-Af Amer) POC Glucose (mg/dL) 128 H 153 H Random Glucose Calcium Phosphorus Magnesium Total Bilirubin AST ALT Alkaline Phosphatase Total Protein Albumin Globulin Albumin/Globulin Ratio Thyroid Stim Immunoglob <89 07/19/18 07/19/18 07/19/18 04:30 05:04 05:54 WBC 6.4 RBC 2.87 L Hgb 8.8 L Hct 25.9 L MCV 90.3 MCH 30.7 MCHC 34.0 RDW 15.9 H Plt Count 125 L MPV 9.6 Neut % (Auto) 79.3 H Lymph % (Auto) 12.[address] [place] % (Auto) 6.4 Eos % (Auto) 1.4 Baso % (Auto) 0.2 Neut # (Auto) 5.1 Lymph # (Auto) 0.[address] [place] # (Auto) 0.4 Eos # (Auto) 0.1 Baso # (Auto) 0.0 Puncture Site Rr pCO2 43 pO2 87 HCO3 30.9 H ABG pH 7.48 H ABG Total CO2 33.3 H ABG O2 Saturation 98.5 H ABG Base Excess 7.7 H ABG Hemoglobin 9.4 L ABG Carboxyhemoglobin 2.0 H POC ABG HHb (Measured) 1.5 ABG Methemoglobin 1.0 [place] Test Pos A-a O2 Difference 216.0 Respiratory Index 2.5 Hgb O2 Saturation 95.6 Vent Mode Prvc Mechanical Rate 12 FiO2 50.0 Tidal Volume 450 PEEP 5 Sodium Potassium Chloride Carbon Dioxide Anion Gap BUN Creatinine Est GFR ( Amer) Est GFR (Non-Af Amer) POC Glucose (mg/dL) 123 H Random Glucose Calcium Phosphorus Magnesium Total Bilirubin AST ALT Alkaline Phosphatase Total Protein Albumin Globulin Albumin/Globulin Ratio Thyroid Stim Immunoglob 07/19/18 07/19/18 05:54 14:13 WBC RBC Hgb Hct MCV MCH MCHC RDW Plt Count MPV Neut % (Auto) Lymph % (Auto) [place] % (Auto) Eos % (Auto) Baso % (Auto) Neut # (Auto) Lymph # (Auto) [place] # (Auto) Eos # (Auto) Baso # (Auto) Puncture Site pCO2 pO2 HCO3 ABG pH ABG Total CO2 ABG O2 Saturation ABG Base Excess ABG Hemoglobin ABG Carboxyhemoglobin POC ABG HHb (Measured) ABG Methemoglobin [place] Test A-a O2 Difference Respiratory Index Hgb O2 Saturation Vent Mode Mechanical Rate FiO2 Tidal Volume PEEP Sodium 144 Potassium 3.4 L Chloride 109 H Carbon Dioxide 29 Anion Gap 10 BUN 34 H Creatinine 0.9 Est GFR ( Amer) > 60 Est GFR (Non-Af Amer) > 60 POC Glucose (mg/dL) 122 H Random Glucose 142 H Calcium 7.6 L Phosphorus 2.8 Magnesium 1.8 Total Bilirubin 0.3 AST 30 ALT 40 Alkaline Phosphatase 113 Total Protein 4.6 L Albumin 2.2 L Globulin 2.4 Albumin/Globulin Ratio 0.9 L Thyroid Stim Immunoglob Attending/Attestation - Attestation I have personally seen and examined this patient.: Yes I have fully participated in the care of the patient.: Yes I have reviewed all pertinent clinical information: Yes Notes (Text): 07/19/18 16:21 patient seen and examined in the intensive care unit. Patient extubated after weaning trial and then got reintubated for respiratory distress and Unable to cough up secretions. ventilatory support Precedex Hold NG tube feeding Continue antibiotics Lasix Discontinue free water
[2018-07-19] MEDS: (Lantus) Insulin Glargine, Recombinant SC SCH ×2 (09:58→22:00)
--- NOTE | 2018-07-19 12:18 | PCM.EEG ---
Electroencephalogram Report - Electroencephalogram Report Procedure Date: 07/17/18 Condition of Recording: Awake, Drowsy Medication: Crestor ASA, Insulin, Lasix. Interpretation: Technical Information: This was a 16-channel EEG, 1-channel EKG , performed using an [employer] machine., electrodes were applied according to the 10/20 international placement system, impedances were less than 5 K Ohm. INDICATION; alter mental status. EEG Detail: During resting wakefulness there was a poorly developed, posterior dominant rhythm at 6 Hz, 30-50 uV, which was minimally reactive to eye opening and closing. Drowsiness was associated with fragmentation of the posterior dominant rhythm and with slow roving eye movements. Sleep was not seen. There were occasional bursts of bi frontal paroxysmal activity at 7 to 8 Hz, lasting less than 1 second, this was seen during wakefulness and sleep. Hyperventilation was not performed. Photic stimulation was performed and there were no changes in the record. ECG was associated with a normal sinus rhythm. Impression: Impression: This is an abnormal EEG record that demonstrate the presence of a moderate non specific diffuse disturbance of cortical activity, this is in keeping with a diffuse borges matter dysfunction. These findings do not support a specific etiology.
[2018-07-19] MEDS: Acetylcysteine 20% Inhal Soln (4ml) INH SCH ×2 (14:20→19:25)
[2018-07-19] MEDS ORDERED: Etomidate 20 mg/10ml Inj IV ONE (14:30)
--- NOTE | 2018-07-19 15:06 | RAD ---
Date of service: 07/19/2018 HISTORY: s/p reintubation COMPARISON: Portable chest 07/19/2018 7:12 a.m.. FINDINGS: LUNGS: Endotracheal tube terminates at the right mainstem bronchus just distal to the origin. Right center venous line is unchanged in position with nasogastric tube again identified entering into the left oleg abdomen. Likely atelectasis unchanged at the medial left base with improved aeration noted at the lateral left base. Nonspecific hazy density seen at the mid inferior lung zones bilaterally but without blunting the costophrenic angles and may reflect ground-glass pulmonary opacity. PLEURA: No significant pleural effusion identified, no pneumothorax apparent. CARDIOVASCULAR: No atherosclerotic calcification present Cardiac size is normal. Pulmonary vascular congestion pattern is felt to be developing and further clinical correlation is advised. OSSEOUS STRUCTURES: No significant abnormalities. VISUALIZED UPPER ABDOMEN: Normal. OTHER FINDINGS: None. IMPRESSION: Moderate pulmonary vascular congestion pattern is questioned with residual atelectasis or potential infiltrate at the left base medially. Hazy density at the bilateral mid to inferior lung zones persist and may reflect ground-glass opacity. No definite pleural effusion or pneumothorax bilaterally. Endotracheal tube terminates at the origin the right mainstem bronchus and adjustment into lower trachea is recommended follow-up by post adjustment radiograph. Current positioning already known by ICU staff on discussion of ET tube location with ICU Nurse Jahaira 07/19/2018 2:50 p.m..
[2018-07-19 16:19] LABS: TSI <89 % baseline (<140)
--- NOTE | 2018-07-19 17:22 | CP.PCM.PN ---
Subjective - Date & Time of Evaluation Date of Evaluation: 07/19/18 Time of Evaluation: 09:00 - Subjective Subjective: events noted extubated [id number] Objective - Vital Signs/Intake and Output Vital Signs (last 24 hours): Temp Pulse Resp BP Pulse Ox 97.7 F 109 H 16 104/59 L 100 07/19/18 12:00 07/19/18 16:28 07/19/18 16:28 07/19/18 16:28 07/19/18 16:28 Intake and Output: 07/19/18 07/19/18 06:59 18:59 Intake Total 756.8 518.0 Output Total 300 475 Balance 456.8 43.0 - Medications Medications: Current Medications Acetaminophen (Tylenol 325mg Tab) 650 mg PO Q6 PRN PRN Reason: Fever >100.4 F Last Admin: 07/15/18 04:35 Dose: 650 mg Acetylcysteine (Acetylcysteine 20%) 4 ml INH RQ6 [facility] Last Admin: 07/19/18 14:20 Dose: 4 ml Albuterol/Ipratropium (Duoneb 3 Mg/0.5 Mg (3 Ml) Ud) 3 ml INH RQ6 [facility] Last Admin: 07/19/18 14:20 Dose: 3 ml Apixaban (Eliquis) 2.5 mg PO BID [facility] Last Admin: 07/19/18 09:03 Dose: 2.5 mg Aspirin (Aspirin Chewable) 81 mg GT DAILY [facility] Last Admin: 07/19/18 09:02 Dose: 81 mg Ergocalciferol (Drisdol 50,000 Intl Units Cap) 1 cap PO Q7D [facility] Last Admin: 07/18/18 12:07 Dose: 1 cap Furosemide (Lasix) 20 mg IVP BID [facility] Last Admin: 07/19/18 09:02 Dose: 20 mg Vancomycin HCl 1 gm/ Sodium (Chloride) 250 mls @ 166.7 mls/hr IVPB Q24H [facility]; Pr otocol Last Admin: 07/18/18 17:23 Dose: 166.7 mls/hr Ceftriaxone Sodium 2 gm/ (Sodium Chloride) 100 mls @ 100 mls/hr IVPB Q12H [facility]; Protocol Last Admin: 07/19/18 04:06 Dose: 100 mls/hr Dexmedetomidine HCl 200 mcg/ (Sodium Chloride) 50 mls @ 2.91 mls/hr IV TITR PRN; Protocol PRN Reason: Sedation Last Titration: 07/19/18 15:00 Dose: 0.3 mcg/kg/hr, 4.36 mls/hr Insulin Aspart (Novolog) 0 unit SC Q6 [facility]; Protocol Last Admin: 07/19/18 11:42 Dose: Not Given Insulin Glargine (Lantus) 20 unit SC Q12 [facility] Last Admin: 07/19/18 09:58 Dose: Not Given Lactobacillus Acidophilus (Bacid Acidophilus) 1 cap PO Q12H [facility] Last Admin: 07/19/18 08:07 Dose: 1 cap Methimazole (Tapazole) 10 mg PO TID [facility] Last Admin: 07/19/18 13:02 Dose: 10 mg Pantoprazole Sodium (Protonix Susp) 40 mg PO BID [facility] Last Admin: 07/19/18 09:02 Dose: 40 mg Propranolol HCl (Inderal) 5 mg PO TID [facility] Last Admin: 07/19/18 13:02 Dose: 5 mg Rosuvastatin Calcium (Crestor) 2.5 mg PO HS [facility] Last Admin: 07/18/18 21:41 Dose: 2.5 mg - Labs Labs: 07/19/18 05:54 07/19/18 05:54 PT 13.6 SECONDS (9.7-12.2) H 07/16/18 06:10 INR 1.2 07/16/18 06:10 APTT 43 SECONDS (21-34) H D 07/17/18 05:57 - Constitutional Appears: Confused, Chronically Ill - Head Exam Head Exam: NORMOCEPHALIC - Eye Exam Eye Exam: absent: Scleral icterus - ENT Exam ENT Exam: Mucous Membranes Dry - Neck Exam Neck Exam: absent: Lymphadenopathy - Respiratory Exam Respiratory Exam: Decreased Breath Sounds - Cardiovascular Exam Cardiovascular Exam: REGULAR RHYTHM - GI/Abdominal Exam GI & Abdominal Exam: Distended, Soft. absent: Tenderness - Rectal Exam Rectal Exam: Deferred - Exam Exam: NORMAL INSPECTION - Extremities Exam Extremities Exam: Pedal Edema - Back Exam Back Exam: absent: CVA tenderness (L), CVA tenderness (R) Assessment and Plan (1) NEHA (acute kidney injury) Status: Acute (2) Acute renal failure Status: Acute (3) Acute respiratory failure Status: Acute (4) Aspiration pneumonia Status: Acute (5) Septic shock Status: Acute (6) Urinary tract infection Status: Acute (7) Diabetes mellitus Status: Chronic
[2018-07-19] MEDS: Dexmedetomidine Hydrochloride 200 MCG in Sodium Chloride 0.9% 48 ML IV PRN (18:04)
[2018-07-19] MEDS: Rosuvastatin Calcium 2.5 mg Tab PO SCH (23:35)
[2018-07-19] MEDS ORDERED: Dextrose 50% SYRINGE Inj (50 ml) ONE (23:53)
[2018-07-19] MEDS ORDERED: Dextrose 50% SYRINGE Inj (50 ml) IV STA (23:56)
[2018-07-20] MEDS: (Novolog) Insulin Aspart, Recombinant 100 u/ml 10 ml vial SC SCH ×4 (00:07→19:00)
[2018-07-20] MEDS ORDERED: Magnesium Sulfate 1 gm in D5W 1 GM/100 ML BAG IVPB ONE (01:12)
[2018-07-20 01:22] LABS: ARTERIAL BLOOD GAS HCO3 30.6 mmol/L (21-28); ARTERIAL BLOOD GAS O2 SAT 98.7 % (95-98); ARTERIAL BLOOD GAS PCO2 27 mm/Hg (35-45); ARTERIAL BLOOD GAS PH 7.62 (7.35-7.45); ARTERIAL BLOOD GAS PO2 74 mm/Hg (80-100); ARTERIAL BLOOD GAS TCO2 28.6 mmol/L (22-28)
[2018-07-20] MEDS ORDERED: Calcium Gluconate 4.65 mEq/10 ml Inj ONE (01:35)
[2018-07-20] MEDS ORDERED: Magnesium Sulfate 1 gm/100 mL D5W IVPB ONE (01:35)
[2018-07-20] MEDS: Albuterol-Ipratrop 3 mg / 0.5 (3 ml) UD INH SCH ×4 (01:35→19:24)
[2018-07-20 01:36] LABS: ALB/GLOB RATIO 0.9 (1.0-2.1); ALBUMIN 2.2 g/dL (3.5-5.0); ALT/SGPT 40 U/L (9-52); AST/SGOT 28 U/L (14-36); BLOOD UREA NITROGEN 31 mg/dL (7-17); GFR NON-AFRICAN AMERICAN 52
[2018-07-20] MEDS: Acetylcysteine 20% Inhal Soln (4ml) INH SCH ×2 (01:36→08:06)
--- NOTE | 2018-07-20 01:49 | PCM.RRT ---
Addendum entered and electronically signed by Amrita Villegas DO 07/20/18 07:32: Date: 07/20/18 Time [employer] PROGRAMMER was called 1:32 [employer] PROGRAMMER Responder Arrival Time: 1:33 Original Note: <Amrita Villegas - Last Filed: 07/20/18 01:47> [employer] Nurses Assessment - Situation Date: 07/10/18 Time [employer] PROGRAMMER was called: 14:00 [employer] PROGRAMMER Responder Arrival Time:: 14:01 [employer] PROGRAMMER Location:: ICU Room Number: 9 [employer] PROGRAM[employer] Reason for Call: Tachycardia (Vtach) [employer] PROGRAMMER Called By: RN - IV IV Inserted during [employer] PROGRAMMER?: No New IV Insertion Tolerance: Excellent - Respiratory [employer] PROGRAMMER Delivery Method: Face Mask @%, Intubated Was the Patient Intubated?: Yes Was the Patient Placed on a Ventilator?: Yes - Ventilator Settings Mode: PRVC Ventilator Respiratory Rate Settin Ventilator Tidal Volume Settin PEEP/CPAP (cm H2O): 5 SAO2 %: 99 FIO2 (% Oxygen): 50 - Medication Medications Administered During [employer] SYSTEMS PROGRAMMER: Amio 150 IVP. Amio drip @ 1 mg / kg/ hr. 1L NS bolus IV. Ca Gluconate IVPB 2000mg/250ml - [place] Coma Scale Coma Scale Eye Opening: To verbal stimuli Coma Scale Motor: Withdraw response to pain - Respiratory Oxygen Delivery Method: Face Mask @%, Intubated - Head Head Exam: ATRAUMATIC, NORMOCEPHALIC - Cardiovascular Exam Cardiovascular Exam: Tachycardia, REGULAR RHYTHM, +S1, +S2 - GI/Abdominal Exam GI & Abdominal Exam: Soft. absent: Distended, Tenderness Plan - Assessment of Findings&Treatment Plan Sara Marley was activated. Pt was given compressions. Epi was administered. Shock was administered. Pt regained pulse. Vitals were HR 140, BP 86/56, RR 16. Pt was given KCl, Mg. INR was ordered. Pt will be followed. <Dave Garcia - Last Filed: 07/20/18 06:46> Attending/Attestation - Attestation I have personally seen and examined this patient.: Yes I have fully participated in the care of the patient.: Yes I have reviewed all pertinent clinical information, including history, physical exam and plan: Yes Notes (Text): 07/20/18 06:45 Responded to sara marley called in ICU, patient had pulse at the time I arrived and was being managed by the ICU team. 07/20/18 06:46
[2018-07-20] MEDS ORDERED: Potassium Chloride 20 mEq 200 ML ONE (01:50)
[2018-07-20] MEDS: Magnesium Sulfate 1 gm in D5W 1 GM/100 ML BAG IVPB SCH ×2 (01:53→02:15)
[2018-07-20 04:36] LABS: ARTERIAL BLOOD GAS HCO3 26.2 mmol/L (21-28); ARTERIAL BLOOD GAS HEMOGLOBIN 9.5 g/dL (11.7-17.4); ARTERIAL BLOOD GAS O2 SAT 98.9 % (95-98); ARTERIAL BLOOD GAS PCO2 43 mm/Hg (35-45); ARTERIAL BLOOD GAS PO2 109 mm/Hg (80-100); ARTERIAL BLOOD GAS TCO2 27.9 mmol/L (22-28)
[2018-07-20 06:28] LABS: BASO % 0.3 % (0.0-2.0); EOS # 0.2 K/uL (0.0-0.7); EOS % 1.4 % (0.0-4.0); HEMOGLOBIN 9.1 g/dL (11.0-16.0); LYMPH # 1.4 K/uL (1.0-4.3); LYMPH % 8.5 % (20.0-40.0); MEAN CORPUSCULAR HEMOGLOBIN 29.5 pg (27.0-31.0); MEAN CORPUSCULAR HGB CONC 32.4 g/dL (33.0-37.0); MEAN PLATELET VOLUME 10.5 fL (7.2-11.7); NEUT # 14.2 K/uL (1.8-7.0); NEUT % 83.8 % (50.0-75.0); PLATELET COUNT 202 K/uL (130-400); RBC 3.09 Mil/uL (3.80-5.20); RED CELL DISTRIBUTION WIDTH 15.8 % (11.5-14.5)
[2018-07-20 06:50] LABS: ALB/GLOB RATIO 0.9 (1.0-2.1); ALBUMIN 2.4 g/dL (3.5-5.0); CALCIUM 8.4 mg/dl (8.6-10.4)
--- NOTE | 2018-07-20 08:11 | RAD ---
Date of service: 07/20/2018 HISTORY: intubated COMPARISON: Portable chest 07/20/2018, 1:42 a.m.. Right central venous line, nasogastric and endotracheal tubes appear unchanged in position.. FINDINGS: LUNGS: Limited patchy airspace disease is question remaining at the medial right apex at the medial right base with retrocardiac left basilar atelectasis likely. PLEURA: No significant pleural effusion identified, no pneumothorax apparent. CARDIOVASCULAR: No atherosclerotic calcification present Diminished pulmonary vascular congestion is noted. Cardiomediastinal silhouette is stable. External pacer again identified. OSSEOUS STRUCTURES: No significant abnormalities. VISUALIZED UPPER ABDOMEN: Normal. OTHER FINDINGS: None. IMPRESSION: Diminished pulmonary vascular congestion with limited residual. Patchy density remains at the medial right apex and medial right base reflecting either atelectasis or infiltrate. Likely atelectasis remains posterior to the left heart.
[2018-07-20] MEDS: Lactobacillus Acidophilus 500 MU Cap PO SCH ×2 (08:20→20:47)
[2018-07-20 08:50] LABS: BANDS 7 % (0-2); EOSINOPHIL 1 % (0-4); LYMPHOCYTE 13 % (20-40); MONOCYTE 6 % (0-10); NEUTROPHIL 73 % (50-75); PLATELET ESTIMATE NORMAL (NORMAL); TOTAL CELLS COUNTED 100
[2018-07-20 08:51] LABS: ANISOCYTOSIS SLIGHT
[2018-07-20 08:53] LABS: HYPOCHROMIC SLIGHT; POLYCHROMIC SLIGHT
[2018-07-20] MEDS: (Lantus) Insulin Glargine, Recombinant SC SCH ×2 (09:10→21:32)
[2018-07-20] MEDS: Propranolol 5 mg Tab PO SCH ×3 (09:10→17:04)
[2018-07-20] MEDS: Pantoprazole 40 mg Susp UD PO SCH ×2 (09:10→10:12)
--- NOTE | 2018-07-20 09:34 | CP.PCM.PN ---
Subjective - Date & Time of Evaluation Date of Evaluation: 07/20/18 Time of Evaluation: 09:10 - Subjective Subjective: Hospitalist Progress Note Patient was seen and examined at 9:10 AM 07/20/18 ICU Bed 9 Patient is still intubated/on-vent as she failed CPAP trial 07/19/18 when she became tachypneic [employer] was called earlier this morning 07/20/18 at 1:32 AM due to V Tach and then a Code Blue: she was given Amiodarone, Epinephrine, Shock, KCl, Mag, Calcium Gluconate and returned to GAIL Chext X Ray this morning reveals decrease in pulmonary vascular congestion, patchy density remains at the medial right base reflecting either atelectasis or infiltrate as well as atelectasis likely posterio to left heart base Precedex continues to be held She is currently on Levophed drip for pressure support WBC elevated and fever noted 101 night of 07/19/18 Hyperkalemia noted likely secondary to the KCl given during Code Blue Hyponatremia continues to improve with free water flushes EEG showed moderate nonspecific diffuse disturbance of cortical activity in keeping with diffuse borges matter dysfunction and findings do not support a specific etiology WBC elevated and fever noted 101 night of 07/19/18. Patient already on Vancomycin and Rocephin (please see Assessment #2 below). Vancomycin Trough 07/19/18 in therapeutic range of 15 to 20. Next trough ordered for 5:30 PM 07/22/18. General: Intubated on vent HEENT: NCA, Pupils are round and reactive to light, EOMI, NO cervical/supraclavicular/submandibular lymphadenopathy Cardio: NS1 and NS2, NO M/R/G Respiratory: Diffuse course breath sounds bilaterallly are decreased and the lungs are more clear to auscultation GI: BSx4, Soft, ND, NO HSM, NO guarding, NO rebound tenderness Ext: Pulses are strong and equal, Capillary Refill is 2 seconds, NO edema noted Neuro: exam not possible at this time Skin: Blanchable erythema noted on the lower buttocks area 1) Septic Shock Assessment/Plan * Infectious Disease (Dr. Brock) on case-->help appreciated * Tmax: 100.3 F (07/14/18) * Criteria: leukocytosis, tachycardia * Source: aspiration pneumonia and urinary tract infection * 07/07/18: Urine: E. Coli * 07/09/18: Urine: No growth * 07/07/18: Blood culture: no growth after 5 days X2 * 07/09/18 Blood culture: no growth after 5 days X2 * 07/14/18: blood cultures: no growth to date * 07/14/18: sputum culture: yeast species * 07/14/18: Urine culture: no growth * MRSA not detected * Antibiotics changed in light of fever spike on 07/14/18 * Rocephin 2gm IVPB Q12H (active since 07/14/18) * Vancomycin 1 gram IVPB Q24H (active since 07/14/18). F/U Vancomycin Trough 5:30 PM 07/22/18 2) Acute Respiratory Failure Pulmonary Edema Bilateral Pleural Effusion and Consolidations Likely Secondary to Aspiration Pneumonia Assessment/Plan * Intubated * Tapered down to Solumedrol 20mg IVP daily * Duonebs RQ6H PRN wheezing * MRSA screen: not detected * Sputum culture 07/09/18, 07/12/18, 07/14/18: yeast * Mycoplasma negative * Legionella was negative * Influenza negative * HIV negative * CT Chest 07/15/18: Moderate to large bilateral pleural effusion and associated consolidations, pathcy grround-glass infiltrates/edema noted within bilateral upper lobes * Rocephin 2gm IVPB Q12H (active since 07/14/18) * Vancomycin 1 gram IVPB Q24H (active since 07/14/18) * Bedside Thoracic U/S 07/17/18 did not reveal enough pleural effusion for Thoracentesis * Lasix 20 mg IV Q12H * Levophed Drip 3) Ventricular Tachycardia NSTEMI Apical Thrombus Assessment/Plan * Code Blue 07/10: SVT==>VT required amiodarone, magnesium, one shock delivered * Cardiology Dr Francisco on case help appreciated * When patient is stabilized will need further cardiac workup * Echocardiogram (07/07/18): left ventricle systolic function is borderline, ejection fraction is 45-50%, no aortic regurgitation is present, mitral regurgitation is mild. Mild tricuspid regurgitation. mild pulmonary hypertension, mild pulmonic valvular regurgitation * Contrast Echo: Large apical hypokinesis a large 30 x 20 mm soft tissue apical sessile mass suggestive of thrombus overall fraction 40%. Obtain a HUBERT or/consider stress card myopathy if coronary disease is excluded further findings per report * Amiodarone discontinued * Monitor electrolytes * Heparin drip changed to Eliquis 2.5 mg 2x/day 07/18/18 * Aspirin 81 mg PO 1x/day. Considering patient already on Eliquis and to reduce chance of bleeding, Plavix was discontinued 07/18/18. * Switched from Cardizem to Propranolol 1mg IVP Q6H 4) Urinary Tract Infection Assessment/Plan * Infectious disease on board help appreciated * 07/07/18: Urine: E. Coli * 07/09/18: Urine: No growth * 07/14/18: Urine culture: No growth 5) Diabetes Assessment/Plan * HgBA1c: 7.8 * Hypoglycemic protocol * Lantus 20 units subcutaneous at bedtime 6) Acute on Chronic Renal Failure Assessment/Plan * Nephrology (Dr. Hyde) on board--> help appreciated * Patient will likely not need dialysis * Renal function continues to improve 7) Hyperthyroidism? Low TSH, and Free T4 Thyroid Storm Assessment/Plan * Note Thyroid studies taken before amiodarone was given (please advised this is not amiodarone induced her levels were abnormal prior) * Patient does not have prior thyroid history * Endocrinology (Dr. 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 She will need outpatient FNA Bx of the complex Left Lobe cyst (please see full report) * Methimazole 10mg PO TID * Propranolol 5 mg PO TID * Monitor LFTs 8) Anemia Likely Secondary to Chronic Diseases Assessment/Plan * Iron normal, TIBC low, Iron Saturation normal, Ferritin normal * Stool occult blood negative * B12 normal * Folate Normal * Improved * Patient is on Eliquis for the Cardiac Apical Thrombus and on Aspirin for the NSTEMI (Plavix was discontinued 07/18/18) 9) Transminitis * Likely secondary to Sepsis and Amiodarone (which was discontinued * Hepatitis serology negative * Slightly elevated from normal on 07/20/18 but could be secondary to [employer]/Code Blue 07/20/18 10) Vitamin D deficiency Assessment plan * 50,000 international units once a week for at least 8-12 weeks started on 07/11/18 11) Thrombocytopenia Assessment plan * Related to HIT, Sepsis, vs Methimazole? * Patient was on Heparin Drip through 07/18/18 and then started on Eliquis on this date * Plavix was disontinued 07/18/18 and she is on ASA * Fibrinogen elevated * Pending HIT/RUSTY * Currently normalized 12) 13 mm Left Adrenal Nodule * As seen on CT Chest 07/16/18 * Will need outpatient follow up for cross sectional imaging for better characterization 13) Hypernatremia * Free water 250 ml 3x/day via OGT * Na now normal 14) Prophylactic measure * Protonix 40mg PO BID * Eliquis 2.5 mg PO BID * Bilateral SCDs * Glucerna Feedings via OGT 45 ml/hour * Subclavian line 07/14/18 Disposition: * Per ICU for vent weaning protocol * Diarrrhea: C. diff toxin 07/16/18 is negative. Now with soft bowel movements * When patient is more stable, will need cardiac workup: as per Cardiology NO HUBERT or Stress Test at this time * Bilateral UE and LE Venous Dopplers are negative for DVT * EEG showed moderate nonspecific diffuse disturbance of cortical activity in keeping with diffuse borges matter dysfunction and findings do not support a specific etiology NO family at bedside at time of exam [place] D.O. Objective - Vital Signs/Intake and Output Vital Signs (last 24 hours): Temp Pulse Resp BP Pulse Ox 99.0 F 67 10 L 113/58 L 100 07/20/18 05:00 07/20/18 08:21 07/20/18 08:21 07/20/18 09:10 07/20/18 08:21 Intake and Output: 07/20/18 07/20/18 06:59 18:59 Intake Total 1165.95 240.15 Output Total 700 Balance 465.95 240.15 - Medications Medications: Current Medications Acetaminophen (Tylenol 325mg Tab) 650 mg PO Q6 PRN PRN Reason: Fever >100.4 F Last Admin: 07/19/18 21:04 Dose: 650 mg Acetazolamide (Diamox 500 Mg Inj) 500 mg IV Q12H [facility] Last Admin: 07/20/18 01:59 Dose: 500 mg Albuterol/Ipratropium (Duoneb 3 Mg/0.5 Mg (3 Ml) Ud) 3 ml INH RQ6 [facility] Last Admin: 07/20/18 08:06 Dose: Not Given Apixaban (Eliquis) 2.5 mg PO BID [facility] Last Admin: 07/19/18 17:23 Dose: 2.5 mg Aspirin (Aspirin Chewable) 81 mg GT DAILY [facility] Last Admin: 07/19/18 09:02 Dose: 81 mg Ergocalciferol (Drisdol 50,000 Intl Units Cap) 1 cap PO Q7D [facility] Last Admin: 07/18/18 12:07 Dose: 1 cap Furosemide (Lasix) 20 mg IVP BID [facility] Last Admin: 07/20/18 09:10 Dose: 20 mg Vancomycin HCl 1 gm/ Sodium (Chloride) 250 mls @ 166.7 mls/hr IVPB Q24H [facility]; Protocol Last Admin: 07/19/18 17:00 Dose: 166.7 mls/hr Ceftriaxone Sodium 2 gm/ (Sodium Chloride) 100 mls @ 100 mls/hr IVPB Q12H [facility]; Protocol Last Admin: 07/20/18 05:00 Dose: 100 mls/hr Dexmedetomidine HCl 200 mcg/ (Sodium Chloride) 50 mls @ 2.91 mls/hr IV TITR PRN; Protocol PRN Reason: Sedation Last Titration: 07/20/18 03:00 Dose: 0.2 mcg/kg/hr, 2.91 mls/hr Norepinephrine Bitartrate 4 mg (/ Dextrose) 254 mls @ 15.24 mls/hr IV .[id number] PRN; Protocol PRN Reason: TITRATE PER MD ORDER Last Titration: 07/20/18 08:00 Dose: 5 mcg/min, 19.05 mls/hr Insulin Aspart (Novolog) 0 unit SC Q6 [facility]; Protocol Last Admin: 07/20/18 06:21 Dose: Not Given Insulin Glargine (Lantus) 20 unit SC Q12 [facility] Last Admin: 07/20/18 09:10 Dose: 10 u Lactobacillus Acidophilus (Bacid Acidophilus) 1 cap PO Q12H [facility] Last Admin: 07/20/18 08:20 Dose: 1 cap Methimazole (Tapazole) 10 mg PO TID [facility] Last Admin: 07/20/18 09:10 Dose: 10 mg Pantoprazole Sodium (Protonix Susp) 40 mg PO BID [facility] Last Admin: 07/20/18 09:10 Dose: 40 mg Propranolol HCl (Inderal) 5 mg PO TID [facility] Last Admin: 07/20/18 09:10 Dose: 5 mg Rosuvastatin Calcium (Crestor) 2.5 mg PO HS [facility] Last Admin: 07/19/18 23:35 Dose: 2.5 mg - Labs Labs: 07/20/18 06:22 07/20/18 06:22 PT 13.6 SECONDS (9.7-12.2) H 07/16/18 06:10 INR 1.2 07/16/18 06:10 APTT 43 SECONDS (21-34) H D 07/17/18 05:57
[2018-07-20 11:35] LABS: INR 1.6; PROTHROMBIN TIME 17.2 SECONDS (9.7-12.2)
[2018-07-20 11:44] LABS: BASO # 0.1 K/uL (0.0-0.2); BASO % 0.6 % (0.0-2.0); EOS # 0.2 K/uL (0.0-0.7); EOS % 1.5 % (0.0-4.0); HEMOGLOBIN 8.6 g/dL (11.0-16.0); LYMPH # 1.4 K/uL (1.0-4.3); LYMPH % 9.4 % (20.0-40.0); MEAN CORPUSCULAR HEMOGLOBIN 29.9 pg (27.0-31.0); MEAN CORPUSCULAR HGB CONC 33.2 g/dL (33.0-37.0); MEAN PLATELET VOLUME 9.7 fL (7.2-11.7); MONO # 0.8 K/uL (0.0-0.8); MONO % 5.2 % (0.0-10.0); NEUT % 83.3 % (50.0-75.0); PLATELET COUNT 216 K/uL (130-400); RBC 2.89 Mil/uL (3.80-5.20); RED CELL DISTRIBUTION WIDTH 15.7 % (11.5-14.5); WHITE BLOOD COUNT 14.4 K/uL (4.8-10.8)
--- NOTE | 2018-07-20 11:56 | CP.CCUPN ---
<ArinAnabel L - Last Filed: 07/20/18 14:41> CCU Subjective - Physician Review Subjective (Free Text): Resident Critical Care Progress Note Patient examined at bedside. Patient was unable to tolerate being extubated and had to be reintubated. Patient also had an episode of vtach overnight, with compressions, epi, and one time defibrillation administered. Patient's condition was explained to the and he expressed understanding. Critical Care Time Spent (in minutes): 35 CCU Objective - Vital Signs / Intake & Output Vital Signs (Last 4 hours): Vital Signs Temp Pulse Resp BP Pulse Ox 07/20/18 11:35 59 L 10 L 111/55 L 100 07/20/18 11:20 65 11 L 117/63 100 07/20/18 11:05 61 16 123/59 L 100 07/20/18 11:00 64 14 100 07/20/18 10:50 67 11 L 131/66 100 07/20/18 10:35 68 13 123/68 100 07/20/18 10:20 65 10 L 131/64 100 07/20/18 10:05 66 12 140/63 100 07/20/18 10:00 67 10 L 96/40 L 100 07/20/18 09:50 69 13 135/66 100 07/20/18 09:35 73 11 L 132/67 100 07/20/18 09:20 64 10 L 128/60 100 07/20/18 09:10 113/58 L 07/20/18 09:05 60 10 L 113/58 L 100 07/20/18 09:00 97.5 F L 63 11 L 100 07/20/18 08:50 58 L 9 L 94/46 L 100 07/20/18 08:35 60 10 L 103/50 L 100 07/20/18 08:21 67 10 L 108/54 L 100 07/20/18 08:05 71 11 L 126/48 L 100 07/20/18 08:00 65 10 L 100 Intake and Output (Last 8hrs): Intake & Output 07/19/18 07/20/18 07/20/18 22:59 06:59 14:59 Intake Total 157.0 1045.75 413.15 Output Total 975 200 Balance -818.0 845.75 413.15 Weight 125 lb 1.6 oz Intake: IV 50 79.55 220.45 Intake, IV Amount 57.0 879.2 152.7 Right Distal Port 208.7 5.8 Subclavian Right Medial Port 57.0 170.5 146.9 Subclavian Right Proximal Port 500 Subclavian Tube Feeding 0 37 40 Other 50 50 Output: Urine 975 200 Urine, Voided 975 200 Stool 0 Other: # Voids Urine, Voided 0 - Physical Exam Head: Positive for: Atraumatic, Normocephalic Pupils: Positive for: PERRL. Negative for: Sluggish, Pinpoint Extroacular Muscles: Positive for: EOMI. Negative for: Gaze Palsy Conjunctiva: Positive for: Normal. Negative for: Injected, Icteric Mouth: Positive for: Moist Mucous Membranes Nose (External): Positive for: Atraumatic. Negative for: Abrasion, Contusion, Laceration Nose (Internal): Positive for: No Active Bleeding. Negative for: Epistaxis Neck: Positive for: Normal Range of Motion, Trachea Midline. Negative for: JVD Respiratory/Chest: Positive for: Good Air Exchange, Rhonchi (mild ronchi in bilateral bases), Other (intubated and ventilated). Negative for: Wheezes, Rales Cardiovascular: Positive for: Normal S1, S2, Peripheal Pulses Present, Tachycardic. Negative for: Regular Rate and Rhythm Abdomen: Positive for: Normal Bowel Sounds. Negative for: Tenderness, Distention, Rebound, Guarding Upper Extremity: Positive for: Normal Inspection, NORMAL PULSES. Negative for: Cyanosis, Edema Lower Extremity: Positive for: Normal Inspection. Negative for: Edema, CALF TENDERNESS Skin: Positive for: Warm, Dry, Normal Color Psychiatric: Positive for: Alert - Medications Active Medications: Active Medications Generic Name Dose Route Start Last Admin Trade Name Freq PRN Reason Stop Dose Admin Acetaminophen 650 mg 07/12/18 15:57 07/19/18 21:04 Tylenol 325mg Tab PO 650 mg Q6 PRN Administration Fever >100.4 F Albuterol/Ipratropium 3 ml 07/14/18 20:00 07/20/18 08:06 Duoneb 3 Mg/0.5 Mg (3 Ml) Ud INH Not Given RQ6 MANOLO Apixaban 2.5 mg 07/18/18 18:00 07/20/18 10:11 Eliquis PO 2.5 mg BID MANOLO Administration Aspirin 81 mg 07/17/18 10:00 07/20/18 10:10 Aspirin Chewable GT 81 mg DAILY MANOLO Administration Ergocalciferol 1 cap 07/11/18 12:45 07/18/18 12:07 Drisdol 50,000 Intl Units Cap PO 1 cap Q7D MANOLO Administration Furosemide 20 mg 07/17/18 18:00 07/20/18 09:10 Lasix IVP 20 mg BID MANOLO Administration Vancomycin HCl 1 gm/ Sodium 250 mls @ 166.7 mls/hr 07/14/18 18:00 07/19/18 17:00 Chloride IVPB 166.7 mls/hr Q24H MANOLO Administration Protocol Dexmedetomidine HCl 200 mcg/ 50 mls @ 2.91 mls/hr 07/15/18 19:55 07/20/18 09:00 Sodium Chloride IV 0 mcg/kg/hr TITR PRN 0 mls/hr Sedation Titration Protocol 0.2 MCG/KG/HR Norepinephrine Bitartrate 4 mg 254 mls @ 15.24 mls/hr 07/20/18 01:13 07/20/18 10:00 / Dextrose IV 8 mcg/min .[id number] PRN 30.48 mls/hr TITRATE PER MD ORDER Administration Protocol 4 MCG/MIN Meropenem 1 gm/ Sodium 100 mls @ 100 mls/hr 07/20/18 11:45 Chloride IVPB Q8H [facility] Protocol Insulin Aspart 0 unit 07/11/18 08:28 07/20/18 06:21 Novolog SC Not Given Q6 [facility] Protocol Insulin Glargine 20 unit 07/17/18 09:46 07/20/18 09:10 Lantus SC 10 u Q12 MAN[facility]O Administration Lactobacillus Acidophilus 1 cap 07/08/18 20:00 07/20/18 08:20 Bacid Acidophilus PO 1 cap Q12H [facility] Administration Methimazole 10 mg 07/11/18 10:00 07/20/18 09:10 Tapazole PO 10 mg TID MANOLO Administration Pantoprazole Sodium 40 mg 07/20/18 10:00 07/20/18 10:12 Protonix Susp PO Not Given DAILY MANOLO Propranolol HCl 5 mg 07/16/18 10:00 07/20/18 09:10 Inderal PO 5 mg TID MANOLO Administration Rosuvastatin Calcium 2.5 mg 07/13/18 22:00 07/19/18 23:35 Crestor PO 2.5 mg HS MANOLO Administration - Patient Studies Lab Studies: Microbiology Studies 07/14/18 13:01 Blood Culture - Final Blood NO GROWTH AFTER 5 DAYS Gram Stain - Final TEST NOT PERFORMED 07/14/18 13:01 Blood Culture - Final Blood NO GROWTH AFTER 5 DAYS Gram Stain - Final TEST NOT PERFORMED Lab Studies 07/20/18 07/20/18 07/20/18 Range/Units 11:39 11:19 11:18 WBC 14.4 H (4.8-10.8) K/uL RBC 2.89 L (3.80-5.20) Mil/uL Hgb 8.6 L (11.0-16.0) g/dL Hct 26.0 L (34.0-47.0) % MCV 90.0 (81.0-99.0) fL MCH 29.9 (27.0-31.0) pg MCHC 33.2 (33.0-37.0) g/dL RDW 15.7 H (11.5-14.5) % Plt Count 216 (130-400) K/uL MPV 9.7 (7.2-11.7) fL Neut % (Auto) 83.3 H (50.0-75.0) % Lymph % (Auto) 9.4 L (20.0-40.0) % [place] % (Auto) 5.2 (0.0-10.0) % Eos % (Auto) 1.5 (0.0-4.0) % Baso % (Auto) 0.6 (0.0-2.0) % Neut # (Auto) 12.0 H (1.8-7.0) K/uL Lymph # (Auto) 1.4 (1.0-4.3) K/uL [place] # (Auto) 0.8 (0.0-0.8) K/uL Eos # (Auto) 0.2 (0.0-0.7) K/uL Baso # (Auto) 0.1 (0.0-0.2) K/uL Neutrophils % (Manual) (50-75) % Band Neutrophils % (0-2) % Lymphocytes % (Manual) (20-40) % Monocytes % (Manual) (0-10) % Eosinophils % (Manual) (0-4) % Platelet Estimate (NORMAL) Polychromasia Hypochromasia (manual) Anisocytosis (manual) PT 17.2 H (9.7-12.2) SECONDS INR 1.6 APTT 32 (21-34) SECONDS Puncture Site pCO2 (35-45) mm/Hg pO2 (80-100) mm/Hg HCO3 (21-28) mmol/L ABG pH (7.35-7.45) ABG Total CO2 (22-28) mmol/L ABG O2 Saturation (95-98) % ABG Base Excess (-2.0-3.0) mmol/L ABG Hemoglobin (11.7-17.4) g/dL ABG Carboxyhemoglobin (0.5-1.5) % POC ABG HHb (Measured) (0.0-5.0) % ABG Methemoglobin (0.0-3.0) % Kevon Test ABG Potassium (3.6-5.2) mmol/L A-a O2 Difference mm/Hg Respiratory Index Hgb O2 Saturation (95.0-98.0) % Glucose (65-105) mg/dl Lactate (0.7-2.1) mmol/L Vent Mode Mechanical Rate FiO2 % Tidal Volume PEEP Crit Value Called To Crit Value Called By Crit Value Read Back Blood Gas Notified Time Sodium (132-148) mmol/L Potassium (3.6-5.2) mmol/L Chloride (98-107) mmol/L Carbon Dioxide (22-30) mmol/L Anion Gap (10-20) BUN (7-17) mg/dL Creatinine (0.7-1.2) mg/dL Est GFR ( Amer) Est GFR (Non-Af Amer) POC Glucose (mg/dL) (65-110) mg/dL Random Glucose (65-105) mg/dL Lactic Acid 0.9 (0.7-2.1) mmol/L Calcium (8.6-10.4) mg/dl Phosphorus (2.5-4.5) mg/dL Magnesium (1.6-2.3) mg/dL Total Bilirubin (0.2-1.3) mg/dL AST (14-36) U/L ALT (9-52) U/L Alkaline Phosphatase (38-126) U/L Total Protein (6.3-8.3) g/dL Albumin (3.5-5.0) g/dL Globulin (2.2-3.9) gm/dL Albumin/Globulin Ratio (1.0-2.1) Thyroid Stim Immunoglob (<140) % baseline Arterial Blood Potassium (3.6-5.2) mmol/L Vancomycin Trough (5.0-10.0) ug/mL 07/20/18 07/20/18 07/20/18 Range/Units 06:22 06:22 06:07 WBC 17.0 H D (4.8-10.8) K/uL RBC 3.09 L (3.80-5.20) Mil/uL Hgb 9.1 L (11.0-16.0) g/dL Hct 28.1 L (34.0-47.0) % MCV 91.0 (81.0-99.0) fL MCH 29.5 (27.0-31.0) pg MCHC 32.4 L (33.0-37.0) g/dL RDW 15.8 H (11.5-14.5) % Plt Count 202 (130-400) K/uL MPV 10.5 (7.2-11.7) fL Neut % (Auto) 83.8 H (50.0-75.0) % Lymph % (Auto) 8.5 L (20.0-40.0) % [place] % (Auto) 6.0 (0.0-10.0) % Eos % (Auto) 1.4 (0.0-4.0) % Baso % (Auto) 0.3 (0.0-2.0) % Neut # (Auto) 14.2 H (1.8-7.0) K/uL Lymph # (Auto) 1.4 (1.0-4.3) K/uL [place] # (Auto) 1.0 H (0.0-0.8) K/uL Eos # (Auto) 0.2 (0.0-0.7) K/uL Baso # (Auto) 0.0 (0.0-0.2) K/uL Neutrophils % (Manual) 73 (50-75) % Band Neutrophils % 7 H (0-2) % Lymphocytes % (Manual) 13 L (20-40) % Monocytes % (Manual) 6 (0-10) % Eosinophils % (Manual) 1 (0-4) % Platelet Estimate Normal (NORMAL) Polychromasia Slight Hypochromasia (manual) Slight Anisocytosis (manual) Slight PT (9.7-12.2) SECONDS INR APTT (21-34) SECONDS Puncture Site pCO2 (35-45) mm/Hg pO2 (80-100) mm/Hg HCO3 (21-28) mmol/L ABG pH (7.35-7.45) ABG Total CO2 (22-28) mmol/L ABG O2 Saturation (95-98) % ABG Base Excess (-2.0-3.0) mmol/L ABG Hemoglobin (11.7-17.4) g/dL ABG Carboxyhemoglobin (0.5-1.5) % POC ABG HHb (Measured) (0.0-5.0) % ABG Methemoglobin (0.0-3.0) % Kevon Test ABG Potassium (3.6-5.2) mmol/L A-a O2 Difference mm/Hg Respiratory Index Hgb O2 Saturation (95.0-98.0) % Glucose (65-105) mg/dl Lactate (0.7-2.1) mmol/L Vent Mode Mechanical Rate FiO2 % Tidal Volume PEEP Crit Value Called To Crit Value Called By Crit Value Read Back Blood Gas Notified Time Sodium 143 (132-148) mmol/L Potassium 5.5 H (3.6-5.2) mmol/L Chloride 108 H (98-107) mmol/L Carbon Dioxide 30 (22-30) mmol/L Anion Gap 10 (10-20) BUN 29 H (7-17) mg/dL Creatinine 1.2 (0.7-1.2) mg/dL Est GFR ( Amer) 57 Est GFR (Non-Af Amer) 47 POC Glucose (mg/dL) 172 H (65-110) mg/dL Random Glucose 170 H (65-105) mg/dL Lactic Acid (0.7-2.1) mmol/L Calcium 8.4 L (8.6-10.4) mg/dl Phosphorus 3.2 (2.5-4.5) mg/dL Magnesium 2.5 H (1.6-2.3) mg/dL Total Bilirubin 1.2 (0.2-1.3) mg/dL AST 41 H D (14-36) U/L ALT 54 H D (9-52) U/L Alkaline Phosphatase 121 (38-126) U/L Total Protein 5.2 L (6.3-8.3) g/dL Albumin 2.4 L (3.5-5.0) g/dL Globulin 2.8 (2.2-3.9) gm/dL Albumin/Globulin Ratio 0.9 L (1.0-2.1) Thyroid Stim Immunoglob (<140) % baseline Arterial Blood Potassium (3.6-5.2) mmol/L Vancomycin Trough (5.0-10.0) ug/mL 07/20/18 07/20/18 07/20/18 Range/Units 04:30 01:15 01:13 WBC (4.8-10.8) K/uL RBC (3.80-5.20) Mil/uL Hgb (11.0-16.0) g/dL Hct (34.0-47.0) % MCV (81.0-99.0) fL MCH (27.0-31.0) pg MCHC (33.0-37.0) g/dL RDW (11.5-14.5) % Plt Count (130-400) K/uL MPV (7.2-11.7) fL Neut % (Auto) (50.0-75.0) % Lymph % (Auto) (20.0-40.0) % [place] % (Auto) (0.0-10.0) % Eos % (Auto) (0.0-4.0) % Baso % (Auto) (0.0-2.0) % Neut # (Auto) (1.8-7.0) K/uL Lymph # (Auto) (1.0-4.3) K/uL [place] # (Auto) (0.0-0.8) K/uL Eos # (Auto) (0.0-0.7) K/uL Baso # (Auto) (0.0-0.2) K/uL Neutrophils % (Manual) (50-75) % Band Neutrophils % (0-2) % Lymphocytes % (Manual) (20-40) % Monocytes % (Manual) (0-10) % Eosinophils % (Manual) (0-4) % Platelet Estimate (NORMAL) Polychromasia Hypochromasia (manual) Anisocytosis (manual) PT (9.7-12.2) SECONDS INR APTT (21-34) SECONDS Puncture Site Rb Rb pCO2 43 27 L (35-45) mm/Hg pO2 109 H 74 L (80-100) mm/Hg HCO3 26.2 30.6 H (21-28) mmol/L ABG pH 7.40 7.62 H* (7.35-7.45) ABG Total CO2 27.9 28.6 H (22-28) mmol/L ABG O2 Saturation 98.9 H 98.7 H (95-98) % ABG Base Excess 1.6 7.3 H (-2.0-3.0) mmol/L ABG Hemoglobin 9.5 L (11.7-17.4) g/dL ABG Carboxyhemoglobin 2.1 H (0.5-1.5) % POC ABG HHb (Measured) 1.1 (0.0-5.0) % ABG Methemoglobin 0.6 (0.0-3.0) % Kevon Test Na Na ABG Potassium 3.1 L (3.6-5.2) mmol/L A-a O2 Difference 194.0 249.0 mm/Hg Respiratory Index 1.8 3.4 Hgb O2 Saturation 96.2 (95.0-98.0) % Glucose 123 H (65-105) mg/dl Lactate 1.0 (0.7-2.1) mmol/L Vent Mode Prvc Prvc Mechanical Rate 10 16 FiO2 50.0 50.0 % Tidal Volume 450 450 PEEP 7 5 Crit Value Called To Rohit costa/rn Crit Value Called By Silvano telles/rt Crit Value Read Back Y Blood Gas Notified Time 125 Sodium 145.0 145 (132-148) mmol/L Potassium 3.1 L (3.6-5.2) mmol/L Chloride 117.0 H 108 H (98-107) mmol/L Carbon Dioxide 30 (22-30) mmol/L Anion Gap 9 L (10-20) BUN 31 H (7-17) mg/dL Creatinine 1.1 (0.7-1.2) mg/dL Est GFR ( Amer) > 60 Est GFR (Non-Af Amer) 52 POC Glucose (mg/dL) (65-110) mg/dL Random Glucose 137 H (65-105) mg/dL Lactic Acid (0.7-2.1) mmol/L Calcium 8.0 L (8.6-10.4) mg/dl Phosphorus 2.4 L (2.5-4.5) mg/dL Magnesium 1.7 (1.6-2.3) mg/dL Total Bilirubin 0.8 (0.2-1.3) mg/dL AST 28 (14-36) U/L ALT 40 (9-52) U/L Alkaline Phosphatase 105 (38-126) U/L Total Protein 4.7 L (6.3-8.3) g/dL Albumin 2.2 L (3.5-5.0) g/dL Globulin 2.5 (2.2-3.9) gm/dL Albumin/Globulin Ratio 0.9 L (1.0-2.1) Thyroid Stim Immunoglob (<140) % baseline Arterial Blood Potassium 3.1 L (3.6-5.2) mmol/L Vancomycin Trough (5.0-10.0) ug/mL 07/20/18 07/19/18 07/19/18 Range/Units 00:10 23:48 23:47 WBC (4.8-10.8) K/uL RBC (3.80-5.20) Mil/uL Hgb (11.0-16.0) g/dL Hct (34.0-47.0) % MCV (81.0-99.0) fL MCH (27.0-31.0) pg MCHC (33.0-37.0) g/dL RDW (11.5-14.5) % Plt Count (130-400) K/uL MPV (7.2-11.7) fL Neut % (Auto) (50.0-75.0) % Lymph % (Auto) (20.0-40.0) % [place] % (Auto) (0.0-10.0) % Eos % (Auto) (0.0-4.0) % Baso % (Auto) (0.0-2.0) % Neut # (Auto) (1.8-7.0) K/uL Lymph # (Auto) (1.0-4.3) K/uL [place] # (Auto) (0.0-0.8) K/uL Eos # (Auto) (0.0-0.7) K/uL Baso # (Auto) (0.0-0.2) K/uL Neutrophils % (Manual) (50-75) % Band Neutrophils % (0-2) % Lymphocytes % (Manual) (20-40) % Monocytes % (Manual) (0-10) % Eosinophils % (Manual) (0-4) % Platelet Estimate (NORMAL) Polychromasia Hypochromasia (manual) Anisocytosis (manual) PT (9.7-12.2) SECONDS INR APTT (21-34) SECONDS Puncture Site pCO2 (35-45) mm/Hg pO2 (80-100) mm/Hg HCO3 (21-28) mmol/L ABG pH (7.35-7.45) ABG Total CO2 (22-28) mmol/L ABG O2 Saturation (95-98) % ABG Base Excess (-2.0-3.0) mmol/L ABG Hemoglobin (11.7-17.4) g/dL ABG Carboxyhemoglobin (0.5-1.5) % POC ABG HHb (Measured) (0.0-5.0) % ABG Methemoglobin (0.0-3.0) % Kevon Test ABG Potassium (3.6-5.2) mmol/L A-a O2 Difference mm/Hg Respiratory Index Hgb O2 Saturation (95.0-98.0) % Glucose (65-105) mg/dl Lactate (0.7-2.1) mmol/L Vent Mode Mechanical Rate FiO2 % Tidal Volume PEEP Crit Value Called To Crit Value Called By Crit Value Read Back Blood Gas Notified Time Sodium (132-148) mmol/L Potassium (3.6-5.2) mmol/L Chloride (98-107) mmol/L Carbon Dioxide (22-30) mmol/L Anion Gap (10-20) BUN (7-17) mg/dL Creatinine (0.7-1.2) mg/dL Est GFR ( Amer) Est GFR (Non-Af Amer) POC Glucose (mg/dL) 130 H 53 L 56 L (65-110) mg/dL Random Glucose (65-105) mg/dL Lactic Acid (0.7-2.1) mmol/L Calcium (8.6-10.4) mg/dl Phosphorus (2.5-4.5) mg/dL Magnesium (1.6-2.3) mg/dL Total Bilirubin (0.2-1.3) mg/dL AST (14-36) U/L ALT (9-52) U/L Alkaline Phosphatase (38-126) U/L Total Protein (6.3-8.3) g/dL Albumin (3.5-5.0) g/dL Globulin (2.2-3.9) gm/dL Albumin/Globulin Ratio (1.0-2.1) Thyroid Stim Immunoglob (<140) % baseline Arterial Blood Potassium (3.6-5.2) mmol/L Vancomycin Trough (5.0-10.0) ug/mL 07/19/18 07/19/18 07/19/18 Range/Units 18:01 17:14 14:13 WBC (4.8-10.8) K/uL RBC (3.80-5.20) Mil/uL Hgb (11.0-16.0) g/dL Hct (34.0-47.0) % MCV (81.0-99.0) fL MCH (27.0-31.0) pg MCHC (33.0-37.0) g/dL RDW (11.5-14.5) % Plt Count (130-400) K/uL MPV (7.2-11.7) fL Neut % (Auto) (50.0-75.0) % Lymph % (Auto) (20.0-40.0) % [place] % (Auto) (0.0-10.0) % Eos % (Auto) (0.0-4.0) % Baso % (Auto) (0.0-2.0) % Neut # (Auto) (1.8-7.0) K/uL Lymph # (Auto) (1.0-4.3) K/uL [place] # (Auto) (0.0-0.8) K/uL Eos # (Auto) (0.0-0.7) K/uL Baso # (Auto) (0.0-0.2) K/uL Neutrophils % (Manual) (50-75) % Band Neutrophils % (0-2) % Lymphocytes % (Manual) (20-40) % Monocytes % (Manual) (0-10) % Eosinophils % (Manual) (0-4) % Platelet Estimate (NORMAL) Polychromasia Hypochromasia (manual) Anisocytosis (manual) PT (9.7-12.2) SECONDS INR APTT (21-34) SECONDS Puncture Site pCO2 (35-45) mm/Hg pO2 (80-100) mm/Hg HCO3 (21-28) mmol/L ABG pH (7.35-7.45) ABG Total CO2 (22-28) mmol/L ABG O2 Saturation (95-98) % ABG Base Excess (-2.0-3.0) mmol/L ABG Hemoglobin (11.7-17.4) g/dL ABG Carboxyhemoglobin (0.5-1.5) % POC ABG HHb (Measured) (0.0-5.0) % ABG Methemoglobin (0.0-3.0) % Kevon Test ABG Potassium (3.6-5.2) mmol/L A-a O2 Difference mm/Hg Respiratory Index Hgb O2 Saturation (95.0-98.0) % Glucose (65-105) mg/dl Lactate (0.7-2.1) mmol/L Vent Mode Mechanical Rate FiO2 % Tidal Volume PEEP Crit Value Called To Crit Value Called By Crit Value Read Back Blood Gas Notified Time Sodium (132-148) mmol/L Potassium (3.6-5.2) mmol/L Chloride (98-107) mmol/L Carbon Dioxide (22-30) mmol/L Anion Gap (10-20) BUN (7-17) mg/dL Creatinine (0.7-1.2) mg/dL Est GFR ( Amer) Est GFR (Non-Af Amer) POC Glucose (mg/dL) 106 122 H (65-110) mg/dL Random Glucose (65-105) mg/dL Lactic Acid (0.7-2.1) mmol/L Calcium (8.6-10.4) mg/dl Phosphorus (2.5-4.5) mg/dL Magnesium (1.6-2.3) mg/dL Total Bilirubin (0.2-1.3) mg/dL AST (14-36) U/L ALT (9-52) U/L Alkaline Phosphatase (38-126) U/L Total Protein (6.3-8.3) g/dL Albumin (3.5-5.0) g/dL Globulin (2.2-3.9) gm/dL Albumin/Globulin Ratio (1.0-2.1) Thyroid Stim Immunoglob (<140) % baseline Arterial Blood Potassium (3.6-5.2) mmol/L Vancomycin Trough 18.5 H (5.0-10.0) ug/mL 07/19/18 07/16/18 Range/Units 11:38 10:25 WBC (4.8-10.8) K/uL RBC (3.80-5.20) Mil/uL Hgb (11.0-16.0) g/dL Hct (34.0-47.0) % MCV (81.0-99.0) fL MCH (27.0-31.0) pg MCHC (33.0-37.0) g/dL RDW (11.5-14.5) % Plt Count (130-400) K/uL MPV (7.2-11.7) fL Neut % (Auto) (50.0-75.0) % Lymph % (Auto) (20.0-40.0) % [place] % (Auto) (0.0-10.0) % Eos % (Auto) (0.0-4.0) % Baso % (Auto) (0.0-2.0) % Neut # (Auto) (1.8-7.0) K/uL Lymph # (Auto) (1.0-4.3) K/uL [place] # (Auto) (0.0-0.8) K/uL Eos # (Auto) (0.0-0.7) K/uL Baso # (Auto) (0.0-0.2) K/uL Neutrophils % (Manual) (50-75) % Band Neutrophils % (0-2) % Lymphocytes % (Manual) (20-40) % Monocytes % (Manual) (0-10) % Eosinophils % (Manual) (0-4) % Platelet Estimate (NORMAL) Polychromasia Hypochromasia (manual) Anisocytosis (manual) PT (9.7-12.2) SECONDS INR APTT (21-34) SECONDS Puncture Site pCO2 (35-45) mm/Hg pO2 (80-100) mm/Hg HCO3 (21-28) mmol/L ABG pH (7.35-7.45) ABG Total CO2 (22-28) mmol/L ABG O2 Saturation (95-98) % ABG Base Excess (-2.0-3.0) mmol/L ABG Hemoglobin (11.7-17.4) g/dL ABG Carboxyhemoglobin (0.5-1.5) % POC ABG HHb (Measured) (0.0-5.0) % ABG Methemoglobin (0.0-3.0) % Kevon Test ABG Potassium (3.6-5.2) mmol/L A-a O2 Difference mm/Hg Respiratory Index Hgb O2 Saturation (95.0-98.0) % Glucose (65-105) mg/dl Lactate (0.7-2.1) mmol/L Vent Mode Mechanical Rate FiO2 % Tidal Volume PEEP Crit Value Called To Crit Value Called By Crit Value Read Back Blood Gas Notified Time Sodium (132-148) mmol/L Potassium (3.6-5.2) mmol/L Chloride (98-107) mmol/L Carbon Dioxide (22-30) mmol/L Anion Gap (10-20) BUN (7-17) mg/dL Creatinine (0.7-1.2) mg/dL Est GFR ( Amer) Est GFR (Non-Af Amer) POC Glucose (mg/dL) 142 H (65-110) mg/dL Random Glucose (65-105) mg/dL Lactic Acid (0.7-2.1) mmol/L Calcium (8.6-10.4) mg/dl Phosphorus (2.5-4.5) mg/dL Magnesium (1.6-2.3) mg/dL Total Bilirubin (0.2-1.3) mg/dL AST (14-36) U/L ALT (9-52) U/L Alkaline Phosphatase (38-126) U/L Total Protein (6.3-8.3) g/dL Albumin (3.5-5.0) g/dL Globulin (2.2-3.9) gm/dL Albumin/Globulin Ratio (1.0-2.1) Thyroid Stim Immunoglob <89 (<140) % baseline Arterial Blood Potassium (3.6-5.2) mmol/L Vancomycin Trough (5.0-10.0) ug/mL Laboratory Results - last 24 hr 07/16/18 07/19/18 07/19/18 10:25 11:38 14:13 WBC RBC Hgb Hct MCV MCH MCHC RDW Plt Count MPV Neut % (Auto) Lymph % (Auto) [place] % (Auto) Eos % (Auto) Baso % (Auto) Neut # (Auto) Lymph # (Auto) [place] # (Auto) Eos # (Auto) Baso # (Auto) Neutrophils % (Manual) Band Neutrophils % Lymphocytes % (Manual) Monocytes % (Manual) Eosinophils % (Manual) Platelet Estimate Polychromasia Hypochromasia (manual) Anisocytosis (manual) PT INR APTT Puncture Site pCO2 pO2 HCO3 ABG pH ABG Total CO2 ABG O2 Saturation ABG Base Excess ABG Hemoglobin ABG Carboxyhemoglobin POC ABG HHb (Measured) ABG Methemoglobin [place] Test ABG Potassium A-a O2 Difference Respiratory Index Hgb O2 Saturation Glucose Lactate Vent Mode Mechanical Rate FiO2 Tidal Volume PEEP Crit Value Called To Crit Value Called By Crit Value Read Back Blood Gas Notified Time Sodium Potassium Chloride Carbon Dioxide Anion Gap BUN Creatinine Est GFR ( Amer) Est GFR (Non-Af Amer) POC Glucose (mg/dL) 142 H 122 H Random Glucose Lactic Acid Calcium Phosphorus Magnesium Total Bilirubin AST ALT Alkaline Phosphatase Total Protein Albumin Globulin Albumin/Globulin Ratio Thyroid Stim Immunoglob <89 Arterial Blood Potassium Vancomycin Trough 07/19/18 07/19/18 07/19/18 17:14 18:01 23:47 WBC RBC Hgb Hct MCV MCH MCHC RDW Plt Count MPV Neut % (Auto) Lymph % (Auto) [place] % (Auto) Eos % (Auto) Baso % (Auto) Neut # (Auto) Lymph # (Auto) [place] # (Auto) Eos # (Auto) Baso # (Auto) Neutrophils % (Manual) Band Neutrophils % Lymphocytes % (Manual) Monocytes % (Manual) Eosinophils % (Manual) Platelet Estimate Polychromasia Hypochromasia (manual) Anisocytosis (manual) PT INR APTT Puncture Site pCO2 pO2 HCO3 ABG pH ABG Total CO2 ABG O2 Saturation ABG Base Excess ABG Hemoglobin ABG Carboxyhemoglobin POC ABG HHb (Measured) ABG Methemoglobin [place] Test ABG Potassium A-a O2 Difference Respiratory Index Hgb O2 Saturation Glucose Lactate Vent Mode Mechanical Rate FiO2 Tidal Volume PEEP Crit Value Called To Crit Value Called By Crit Value Read Back Blood Gas Notified Time Sodium Potassium Chloride Carbon Dioxide Anion Gap BUN Creatinine Est GFR ( Amer) Est GFR (Non-Af Amer) POC Glucose (mg/dL) 106 56 L Random Glucose Lactic Acid Calcium Phosphorus Magnesium Total Bilirubin AST ALT Alkaline Phosphatase Total Protein Albumin Globulin Albumin/Globulin Ratio Thyroid Stim Immunoglob Arterial Blood Potassium Vancomycin Trough 18.5 H 07/19/18 07/20/18 07/20/18 23:48 00:10 01:13 WBC RBC Hgb Hct MCV MCH MCHC RDW Plt Count MPV Neut % (Auto) Lymph % (Auto) [place] % (Auto) Eos % (Auto) Baso % (Auto) Neut # (Auto) Lymph # (Auto) [place] # (Auto) Eos # (Auto) Baso # (Auto) Neutrophils % (Manual) Band Neutrophils % Lymphocytes % (Manual) Monocytes % (Manual) Eosinophils % (Manual) Platelet Estimate Polychromasia Hypochromasia (manual) Anisocytosis (manual) PT INR APTT Puncture Site pCO2 pO2 HCO3 ABG pH ABG Total CO2 ABG O2 Saturation ABG Base Excess ABG Hemoglobin ABG Carboxyhemoglobin POC ABG HHb (Measured) ABG Methemoglobin [place] Test ABG Potassium A-a O2 Difference Respiratory Index Hgb O2 Saturation Glucose Lactate Vent Mode Mechanical Rate FiO2 Tidal Volume PEEP Crit Value Called To Crit Value Called By Crit Value Read Back Blood Gas Notified Time Sodium 145 Potassium 3.1 L Chloride 108 H Carbon Dioxide 30 Anion Gap 9 L BUN 31 H Creatinine 1.1 Est GFR ( Amer) > 60 Est GFR (Non-Af Amer) 52 POC Glucose (mg/dL) 53 L 130 H Random Glucose 137 H Lactic Acid Calcium 8.0 L Phosphorus 2.4 L Magnesium 1.7 Total Bilirubin 0.8 AST 28 ALT 40 Alkaline Phosphatase 105 Total Protein 4.7 L Albumin 2.2 L Globulin 2.5 Albumin/Globulin Ratio 0.9 L Thyroid Stim Immunoglob Arterial Blood Potassium Vancomycin Trough 07/20/18 07/20/18 07/20/18 01:15 04:30 06:07 WBC RBC Hgb Hct MCV MCH MCHC RDW Plt Count MPV Neut % (Auto) Lymph % (Auto) [place] % (Auto) Eos % (Auto) Baso % (Auto) Neut # (Auto) Lymph # (Auto) [place] # (Auto) Eos # (Auto) Baso # (Auto) Neutrophils % (Manual) Band Neutrophils % Lymphocytes % (Manual) Monocytes % (Manual) Eosinophils % (Manual) Platelet Estimate Polychromasia Hypochromasia (manual) Anisocytosis (manual) PT INR APTT Puncture Site Rb Rb pCO2 27 L 43 pO2 74 L 109 H HCO3 30.6 H 26.2 ABG pH 7.62 H* 7.40 ABG Total CO2 28.6 H 27.9 ABG O2 Saturation 98.7 H 98.9 H ABG Base Excess 7.3 H 1.6 ABG Hemoglobin 9.5 L ABG Carboxyhemoglobin 2.1 H POC ABG HHb (Measured) 1.1 ABG Methemoglobin 0.6 [place]ev[place] Test Na Na ABG Potassium 3.1 L A-a O2 Difference 249.0 194.0 Respiratory Index 3.4 1.8 Hgb O2 Saturation 96.2 Glucose 123 H Lactate 1.0 Vent Mode Prvc Prvc Mechanical Rate 16 10 FiO2 50.0 50.0 Tidal Volume 450 450 PEEP 5 7 Crit Value Called To Rohit costa/rn Crit Value Called By Silvano telles/rt Crit Value Read Back Y Blood Gas Notified Time 125 Sodium 145.0 Potassium Chloride 117.0 H Carbon Dioxide Anion Gap BUN Creatinine Est GFR ( Amer) Est GFR (Non-Af Amer) POC Glucose (mg/dL) 172 H Random Glucose Lactic Acid Calcium Phosphorus Magnesium Total Bilirubin AST ALT Alkaline Phosphatase Total Protein Albumin Globulin Albumin/Globulin Ratio Thyroid Stim Immunoglob Arterial Blood Potassium 3.1 L Vancomycin Trough 07/20/18 07/20/18 07/20/18 06:22 06:22 11:18 WBC 17.0 H D RBC 3.09 L Hgb 9.1 L Hct 28.1 L MCV 91.0 MCH 29.5 MCHC 32.4 L RDW 15.8 H Plt Count 202 MPV 10.5 Neut % (Auto) 83.8 H Lymph % (Auto) 8.5 L [place] % (Auto) 6.0 Eos % (Auto) 1.4 Baso % (Auto) 0.3 Neut # (Auto) 14.2 H Lymph # (Auto) 1.4 [place] # (Auto) 1.0 H Eos # (Auto) 0.2 Baso # (Auto) 0.0 Neutrophils % (Manual) 73 Band Neutrophils % 7 H Lymphocytes % (Manual) 13 L Monocytes % (Manual) 6 Eosinophils % (Manual) 1 Platelet Estimate Normal Polychromasia Slight Hypochromasia (manual) Slight Anisocytosis (manual) Slight PT 17.2 H INR 1.6 APTT 32 Puncture Site pCO2 pO2 HCO3 ABG pH ABG Total CO2 ABG O2 Saturation ABG Base Excess ABG Hemoglobin ABG Carboxyhemoglobin POC ABG HHb (Measured) ABG Methemoglobin [place]ev[place] Test ABG Potassium A-a O2 Difference Respiratory Index Hgb O2 Saturation Glucose Lactate Vent Mode Mechanical Rate FiO2 Tidal Volume PEEP Crit Value Called To Crit Value Called By Crit Value Read Back Blood Gas Notified Time Sodium 143 Potassium 5.5 H Chloride 108 H Carbon Dioxide 30 Anion Gap 10 BUN 29 H Creatinine 1.2 Est GFR ( Amer) 57 Est GFR (Non-Af Amer) 47 POC Glucose (mg/dL) Random Glucose 170 H Lactic Acid Calcium 8.4 L Phosphorus 3.2 Magnesium 2.5 H Total Bilirubin 1.2 AST 41 H D ALT 54 H D Alkaline Phosphatase 121 Total Protein 5.2 L Albumin 2.4 L Globulin 2.8 Albumin/Globulin Ratio 0.9 L Thyroid Stim Immunoglob Arterial Blood Potassium Vancomycin Trough 07/20/18 07/20/18 11:19 11:39 WBC 14.4 H RBC 2.89 L Hgb 8.6 L Hct 26.0 L MCV 90.0 MCH 29.9 MCHC 33.2 RDW 15.7 H Plt Count 216 MPV 9.7 Neut % (Auto) 83.3 H Lymph % (Auto) 9.4 L [place] % (Auto) 5.2 Eos % (Auto) 1.5 Baso % (Auto) 0.6 Neut # (Auto) 12.0 H Lymph # (Auto) 1.4 [place] # (Auto) 0.8 Eos # (Auto) 0.2 Baso # (Auto) 0.1 Neutrophils % (Manual) Band Neutrophils % Lymphocytes % (Manual) Monocytes % (Manual) Eosinophils % (Manual) Platelet Estimate Polychromasia Hypochromasia (manual) Anisocytosis (manual) PT INR APTT Puncture Site pCO2 pO2 HCO3 ABG pH ABG Total CO2 ABG O2 Saturation ABG Base Excess ABG Hemoglobin ABG Carboxyhemoglobin POC ABG HHb (Measured) ABG Methemoglobin [place]ev[place] Test ABG Potassium A-a O2 Difference Respiratory Index Hgb O2 Saturation Glucose Lactate Vent Mode Mechanical Rate FiO2 Tidal Volume PEEP Crit Value Called To Crit Value Called By Crit Value Read Back Blood Gas Notified Time Sodium Potassium Chloride Carbon Dioxide Anion Gap BUN Creatinine Est GFR ( Amer) Est GFR (Non-Af Amer) POC Glucose (mg/dL) Random Glucose Lactic Acid 0.9 Calcium Phosphorus Magnesium Total Bilirubin AST ALT Alkaline Phosphatase Total Protein Albumin Globulin Albumin/Globulin Ratio Thyroid Stim Immunoglob Arterial Blood Potassium Vancomycin Trough EKG/Cardiology Studies: Cardiology / EKG Studies 07/20/18 01:09 ELECTROCARDIOGRAM Stat Comment: Mode Of Transportation: PORTABLE Reason For Exam: change in ryth PERFORMING PHYSICIAN/PROVIDER:: Merlin Oshea Fingerstick Blood Sugar Results: 172 Review of Systems - Review of Systems Systems not reviewed;Unavailable: Intubated Assessment/Plan - Assessment and Plan (Free Text) Assessment: This is a 52 yo female with PMH of DM2 and hypercholesterolemia who presented to with cough, post-tussive emesis, and malaise x2-3 weeks. She was admitted to the ICU for respiratory failure and acute renal failure. Remains intubated after failing extubation once. Plan: Neuro: - anoxic brain injury - sedated on precedex Pulm: - hypoxic respiratory failure secondary to pulmonary congestion, renal failure - goal SaO2 > 92% and paO2 > 55 - Duonebs 2 ml INH RQ4 CV: - cardiac arrest from unknown etiology - Cardiology consulted. Appreciate recs. - repeat ECHO from shows left ventricular thrombus; Eliquis 2.5 mg PO BID - dopplers show LLE DVT, right cephalic vein thrombus - continue daily aspirin 81 mg, propranolol 5 mg PO TID, crestor 2.5 mg PO HS - maintain MAP>70 GI: - Glucerna for tube feeds - Protonix 40 mg IV daily Renal: - acute renal failure resolving - avoid nephrotoxic drugs Heme: - no acute issues - continue to monitor H/H Endo: - repeat labs show TSH <0.02, T3 0.857 (L), free T4 2.35 (H) - ISS for coverage, q6h - methimazole 10 mg PO TID ID: - Tmax overnight 101.7, leukocytosis, bandemia - Discontinued rocephin, now on merrem 1 gm daily and vancomycin 1 gm daily - blood, urine, mcintyre, sputum cultures drawn - ID following, appreciate all recs Dispo: pending another PS/CPAP trial, remains intubated FEN: NPO, on Tube Feeds Access: Peripheral IVs, right subclavian TLC, ETT, OGT Consults: Palliative, Endo, Nephro, Cardio, Neuro, Cardio Ppx: Protonix for GI, SCDs Code status: FULL Next of kin: Martina Isaacs () Patient seen, reviewed, and discussed with attending, Dr. Fahad Hinkle PGY-1 - Date & Time Date: 07/20/18 Time: 08:00 <Gerson Vásquez - Last Filed: 07/20/18 15:55> CCU Objective - Vital Signs / Intake & Output Vital Signs (Last 4 hours): Vital Signs Temp Pulse Resp BP Pulse Ox 07/20/18 15:05 73 11 L 128/59 L 100 07/20/18 15:00 74 11 L 100 07/20/18 14:50 73 11 L 125/59 L 100 07/20/18 14:35 79 11 L 126/61 100 07/20/18 14:20 80 11 L 125/58 L 100 07/20/18 14:05 76 12 123/63 100 07/20/18 14:00 75 11 L 100 07/20/18 13:50 76 11 L 118/57 L 100 07/20/18 13:35 75 11 L 121/60 100 07/20/18 13:20 72 10 L 117/58 L 100 07/20/18 13:05 71 11 L 120/60 100 07/20/18 13:00 68 9 L 100 07/20/18 12:50 67 10 L 119/59 L 100 07/20/18 12:35 67 10 L 116/50 L 100 07/20/18 12:20 68 13 114/57 L 100 07/20/18 12:05 61 9 L 114/57 L 100 07/20/18 12:00 97.6 F 62 8 L 100 07/20/18 11:50 60 11 L 112/55 L 100 Intake and Output (Last 8hrs): Intake & Output 07/20/18 07/20/18 07/20/18 06:59 14:59 22:59 Intake Total 1045.75 563.15 52.9 Output Total 200 Balance 845.75 563.15 52.9 Weight 125 lb 1.6 oz Intake: IV 79.55 220.45 0 Intake, IV Amount 879.2 242.7 32.9 Right Distal Port 208.7 5.8 2.9 Subclavian Right Medial Port 170.5 236.9 30 Subclavian Right Proximal Port 500 Subclavian Tube Feeding 37 100 20 Other 50 Output: Urine 200 Urine, Voided 200 Other: # Voids Urine, Voided 0 - Medications Active Medications: Active Medications Generic Name Dose Route Start Last Admin Trade Name Freq PRN Reason Stop Dose Admin Acetaminophen 650 mg 07/12/18 15:57 07/19/18 21:04 Tylenol 325mg Tab PO 650 mg Q6 PRN Administration Fever >100.4 F Albuterol/Ipratropium 3 ml 07/14/18 20:00 07/20/18 13:51 Duoneb 3 Mg/0.5 Mg (3 Ml) Ud INH Not Given RQ6 MANOLO Apixaban 2.5 mg 07/18/18 18:00 07/20/18 10:11 Eliquis PO 2.5 mg BID MANOLO Administration Aspirin 81 mg 07/17/18 10:00 07/20/18 10:10 Aspirin Chewable GT 81 mg DAILY MANOLO Administration Ergocalciferol 1 cap 07/11/18 12:45 07/18/18 12:07 Drisdol 50,000 Intl Units Cap PO 1 cap Q7D MANOLO Administration Furosemide 20 mg 07/17/18 18:00 07/20/18 09:10 Lasix IVP 20 mg BID MANOLO Administration Vancomycin HCl 1 gm/ Sodium 250 mls @ 166.7 mls/hr 07/14/18 18:00 07/19/18 17:00 Chloride IVPB 166.7 mls/hr Q24H MANOLO Administration Protocol Dexmedetomidine HCl 200 mcg/ 50 mls @ 2.91 mls/hr 07/15/18 19:55 07/20/18 15:00 Sodium Chloride IV 0.2 mcg/kg/hr TITR PRN 2.91 mls/hr Sedation Titration Protocol 0.2 MCG/KG/HR Norepinephrine Bitartrate 4 mg 254 mls @ 15.24 mls/hr 07/20/18 01:13 07/20/18 10:00 / Dextrose IV 8 mcg/min .[id number] PRN 30.48 mls/hr TITRATE PER MD ORDER Administration Protocol 4 MCG/MIN Meropenem 1 gm/ Sodium 100 mls @ 100 mls/hr 07/20/18 11:45 07/20/18 12:30 Chloride IVPB 100 mls/hr Q8H MANOLO Administration Protocol Insulin Aspart 0 unit 07/11/18 08:28 07/20/18 12:11 Novolog SC 4 units Q6 MANOLO Administration Protocol Insulin Glargine 20 unit 07/17/18 09:46 07/20/18 09:10 Lantus SC 10 u Q12 MANOLO Administration Lactobacillus Acidophilus 1 cap 07/08/18 20:00 07/20/18 08:20 Bacid Acidophilus PO 1 cap Q12H MANOLO Administration Methimazole 10 mg 07/11/18 10:00 07/20/18 14:51 Tapazole PO 10 mg TID MANOLO Administration Pantoprazole Sodium 40 mg 07/20/18 10:00 07/20/18 10:12 Protonix Susp PO Not Given DAILY MANOLO Propranolol HCl 5 mg 07/16/18 10:00 07/20/18 14:51 Inderal PO 5 mg TID MANOLO Administration Rosuvastatin Calcium 2.5 mg 07/13/18 22:00 07/19/18 23:35 Crestor PO 2.5 mg HS MANOLO Administration - Patient Studies Lab Studies: Microbiology Studies 07/14/18 13:01 Blood Culture - Final Blood NO GROWTH AFTER 5 DAYS Gram Stain - Final TEST NOT PERFORMED 07/14/18 13:01 Blood Culture - Final Blood NO GROWTH AFTER 5 DAYS Gram Stain - Final TEST NOT PERFORMED Lab Studies 07/20/18 07/20/18 07/20/18 Range/Units 12:27 11:39 11:19 WBC 14.4 H (4.8-10.8) K/uL RBC 2.89 L (3.80-5.20) Mil/uL Hgb 8.6 L (11.0-16.0) g/dL Hct 26.0 L (34.0-47.0) % MCV 90.0 (81.0-99.0) fL MCH 29.9 (27.0-31.0) pg MCHC 33.2 (33.0-37.0) g/dL RDW 15.7 H (11.5-14.5) % Plt Count 216 (130-400) K/uL MPV 9.7 (7.2-11.7) fL Neut % (Auto) 83.3 H (50.0-75.0) % Lymph % (Auto) 9.4 L (20.0-40.0) % [place] % (Auto) 5.2 (0.0-10.0) % Eos % (Auto) 1.5 (0.0-4.0) % Baso % (Auto) 0.6 (0.0-2.0) % Neut # (Auto) 12.0 H (1.8-7.0) K/uL Lymph # (Auto) 1.4 (1.0-4.3) K/uL [place] # (Auto) 0.8 (0.0-0.8) K/uL Eos # (Auto) 0.2 (0.0-0.7) K/uL Baso # (Auto) 0.1 (0.0-0.2) K/uL Neutrophils % (Manual) 79 H (50-75) % Band Neutrophils % 3 H (0-2) % Lymphocytes % (Manual) 12 L (20-40) % Monocytes % (Manual) 4 (0-10) % Eosinophils % (Manual) 2 (0-4) % Platelet Estimate Normal (NORMAL) Polychromasia Slight Hypochromasia (manual) Slight Anisocytosis (manual) Slight PT (9.7-12.2) SECONDS INR APTT (21-34) SECONDS Puncture Site pCO2 (35-45) mm/Hg pO2 (80-100) mm/Hg HCO3 (21-28) mmol/L ABG pH (7.35-7.45) ABG Total CO2 (22-28) mmol/L ABG O2 Saturation (95-98) % ABG Base Excess (-2.0-3.0) mmol/L ABG Hemoglobin (11.7-17.4) g/dL ABG Carboxyhemoglobin (0.5-1.5) % POC ABG HHb (Measured) (0.0-5.0) % ABG Methemoglobin (0.0-3.0) % Kevon Test ABG Potassium (3.6-5.2) mmol/L A-a O2 Difference mm/Hg Respiratory Index Hgb O2 Saturation (95.0-98.0) % Glucose (65-105) mg/dl Lactate (0.7-2.1) mmol/L Vent Mode Mechanical Rate FiO2 % Tidal Volume PEEP Crit Value Called To Crit Value Called By Crit Value Read Back Blood Gas Notified Time Sodium 141 (132-148) mmol/L Potassium 4.3 (3.6-5.2) mmol/L Chloride 107 (98-107) mmol/L Carbon Dioxide 27 (22-30) mmol/L Anion Gap 11 (10-20) BUN 27 H (7-17) mg/dL Creatinine 1.1 (0.7-1.2) mg/dL Est GFR ( Amer) > 60 Est GFR (Non-Af Amer) 52 POC Glucose (mg/dL) (65-110) mg/dL Random Glucose 177 H (65-105) mg/dL Lactic Acid 0.9 (0.7-2.1) mmol/L Calcium 8.1 L (8.6-10.4) mg/dl Phosphorus 2.9 (2.5-4.5) mg/dL Magnesium 2.2 (1.6-2.3) mg/dL Total Bilirubin 0.8 (0.2-1.3) mg/dL AST 28 (14-36) U/L ALT 42 (9-52) U/L Alkaline Phosphatase 100 (38-126) U/L Total Protein 4.9 L (6.3-8.3) g/dL Albumin 2.1 L (3.5-5.0) g/dL Globulin 2.7 (2.2-3.9) gm/dL Albumin/Globulin Ratio 0.8 L (1.0-2.1) Free T4 (0.78-2.19) ng/dL Total T3 0.857 L (1.49-2.60) nmol/L TSH 3rd Generation (0.46-4.68) mIU/L Thyroid Stim Immunoglob (<140) % baseline Arterial Blood Potassium (3.6-5.2) mmol/L Vancomycin Trough (5.0-10.0) ug/mL 07/20/18 07/20/18 07/20/18 Range/Units 11:19 11:18 11:18 WBC (4.8-10.8) K/uL RBC (3.80-5.20) Mil/uL Hgb (11.0-16.0) g/dL Hct (34.0-47.0) % MCV (81.0-99.0) fL MCH (27.0-31.0) pg MCHC (33.0-37.0) g/dL RDW (11.5-14.5) % Plt Count (130-400) K/uL MPV (7.2-11.7) fL Neut % (Auto) (50.0-75.0) % Lymph % (Auto) (20.0-40.0) % [place] % (Auto) (0.0-10.0) % Eos % (Auto) (0.0-4.0) % Baso % (Auto) (0.0-2.0) % Neut # (Auto) (1.8-7.0) K/uL Lymph # (Auto) (1.0-4.3) K/uL [place] # (Auto) (0.0-0.8) K/uL Eos # (Auto) (0.0-0.7) K/uL Baso # (Auto) (0.0-0.2) K/uL Neutrophils % (Manual) (50-75) % Band Neutrophils % (0-2) % Lymphocytes % (Manual) (20-40) % Monocytes % (Manual) (0-10) % Eosinophils % (Manual) (0-4) % Platelet Estimate (NORMAL) Polychromasia Hypochromasia (manual) Anisocytosis (manual) PT 17.2 H (9.7-12.2) SECONDS INR 1.6 APTT 32 (21-34) SECONDS Puncture Site pCO2 (35-45) mm/Hg pO2 (80-100) mm/Hg HCO3 (21-28) mmol/L ABG pH (7.35-7.45) ABG Total CO2 (22-28) mmol/L ABG O2 Saturation (95-98) % ABG Base Excess (-2.0-3.0) mmol/L ABG Hemoglobin (11.7-17.4) g/dL ABG Carboxyhemoglobin (0.5-1.5) % POC ABG HHb (Measured) (0.0-5.0) % ABG Methemoglobin (0.0-3.0) % Kevon Test ABG Potassium (3.6-5.2) mmol/L A-a O2 Difference mm/Hg Respiratory Index Hgb O2 Saturation (95.0-98.0) % Glucose (65-105) mg/dl Lactate (0.7-2.1) mmol/L Vent Mode Mechanical Rate FiO2 % Tidal Volume PEEP Crit Value Called To Crit Value Called By Crit Value Read Back Blood Gas Notified Time Sodium (132-148) mmol/L Potassium (3.6-5.2) mmol/L Chloride (98-107) mmol/L Carbon Dioxide (22-30) mmol/L Anion Gap (10-20) BUN (7-17) mg/dL Creatinine (0.7-1.2) mg/dL Est GFR ( Amer) Est GFR (Non-Af Amer) POC Glucose (mg/dL) (65-110) mg/dL Random Glucose (65-105) mg/dL Lactic Acid (0.7-2.1) mmol/L Calcium (8.6-10.4) mg/dl Phosphorus (2.5-4.5) mg/dL Magnesium (1.6-2.3) mg/dL Total Bilirubin (0.2-1.3) mg/dL AST (14-36) U/L ALT (9-52) U/L Alkaline Phosphatase (38-126) U/L Total Protein (6.3-8.3) g/dL Albumin (3.5-5.0) g/dL Globulin (2.2-3.9) gm/dL Albumin/Globulin Ratio (1.0-2.1) Free T4 2.35 H (0.78-2.19) ng/dL Total T3 (1.49-2.60) nmol/L TSH 3rd Generation (0.46-4.68) mIU/L Thyroid Stim Immunoglob (<140) % baseline Arterial Blood Potassium (3.6-5.2) mmol/L Vancomycin Trough 24.0 H (5.0-10.0) ug/mL 07/20/18 07/20/18 07/20/18 Range/Units 11:18 06:22 06:22 WBC 17.0 H D (4.8-10.8) K/uL RBC 3.09 L (3.80-5.20) Mil/uL Hgb 9.1 L (11.0-16.0) g/dL Hct 28.1 L (34.0-47.0) % MCV 91.0 (81.0-99.0) fL MCH 29.5 (27.0-31.0) pg MCHC 32.4 L (33.0-37.0) g/dL RDW 15.8 H (11.5-14.5) % Plt Count 202 (130-400) K/uL MPV 10.5 (7.2-11.7) fL Neut % (Auto) 83.8 H (50.0-75.0) % Lymph % (Auto) 8.5 L (20.0-40.0) % [place] % (Auto) 6.0 (0.0-10.0) % Eos % (Auto) 1.4 (0.0-4.0) % Baso % (Auto) 0.3 (0.0-2.0) % Neut # (Auto) 14.2 H (1.8-7.0) K/uL Lymph # (Auto) 1.4 (1.0-4.3) K/uL [place] # (Auto) 1.0 H (0.0-0.8) K/uL Eos # (Auto) 0.2 (0.0-0.7) K/uL Baso # (Auto) 0.0 (0.0-0.2) K/uL Neutrophils % (Manual) 73 (50-75) % Band Neutrophils % 7 H (0-2) % Lymphocytes % (Manual) 13 L (20-40) % Monocytes % (Manual) 6 (0-10) % Eosinophils % (Manual) 1 (0-4) % Platelet Estimate Normal (NORMAL) Polychromasia Slight Hypochromasia (manual) Slight Anisocytosis (manual) Slight PT (9.7-12.2) SECONDS INR APTT (21-34) SECONDS Puncture Site pCO2 (35-45) mm/Hg pO2 (80-100) mm/Hg HCO3 (21-28) mmol/L ABG pH (7.35-7.45) ABG Total CO2 (22-28) mmol/L ABG O2 Saturation (95-98) % ABG Base Excess (-2.0-3.0) mmol/L ABG Hemoglobin (11.7-17.4) g/dL ABG Carboxyhemoglobin (0.5-1.5) % POC ABG HHb (Measured) (0.0-5.0) % ABG Methemoglobin (0.0-3.0) % Kevon Test ABG Potassium (3.6-5.2) mmol/L A-a O2 Difference mm/Hg Respiratory Index Hgb O2 Saturation (95.0-98.0) % Glucose (65-105) mg/dl Lactate (0.7-2.1) mmol/L Vent Mode Mechanical Rate FiO2 % Tidal Volume PEEP Crit Value Called To Crit Value Called By Crit Value Read Back Blood Gas Notified Time Sodium 143 (132-148) mmol/L Potassium 5.5 H (3.6-5.2) mmol/L Chloride 108 H (98-107) mmol/L Carbon Dioxide 30 (22-30) mmol/L Anion Gap 10 (10-20) BUN 29 H (7-17) mg/dL Creatinine 1.2 (0.7-1.2) mg/dL Est GFR ( Amer) 57 Est GFR (Non-Af Amer) 47 POC Glucose (mg/dL) (65-110) mg/dL Random Glucose 170 H (65-105) mg/dL Lactic Acid (0.7-2.1) mmol/L Calcium 8.4 L (8.6-10.4) mg/dl Phosphorus 3.2 (2.5-4.5) mg/dL Magnesium 2.5 H (1.6-2.3) mg/dL Total Bilirubin 1.2 (0.2-1.3) mg/dL AST 41 H D (14-36) U/L ALT 54 H D (9-52) U/L Alkaline Phosphatase 121 (38-126) U/L Total Protein 5.2 L (6.3-8.3) g/dL Albumin 2.4 L (3.5-5.0) g/dL Globulin 2.8 (2.2-3.9) gm/dL Albumin/Globulin Ratio 0.9 L (1.0-2.1) Free T4 (0.78-2.19) ng/dL Total T3 (1.49-2.60) nmol/L TSH 3rd Generation < 0.02 L (0.46-4.68) mIU/L Thyroid Stim Immunoglob (<140) % baseline Arterial Blood Potassium (3.6-5.2) mmol/L Vancomycin Trough (5.0-10.0) ug/mL 07/20/18 07/20/18 07/20/18 Range/Units 06:07 04:30 01:15 WBC (4.8-10.8) K/uL RBC (3.80-5.20) Mil/uL Hgb (11.0-16.0) g/dL Hct (34.0-47.0) % MCV (81.0-99.0) fL MCH (27.0-31.0) pg MCHC (33.0-37.0) g/dL RDW (11.5-14.5) % Plt Count (130-400) K/uL MPV (7.2-11.7) fL Neut % (Auto) (50.0-75.0) % Lymph % (Auto) (20.0-40.0) % [place] % (Auto) (0.0-10.0) % Eos % (Auto) (0.0-4.0) % Baso % (Auto) (0.0-2.0) % Neut # (Auto) (1.8-7.0) K/uL Lymph # (Auto) (1.0-4.3) K/uL [place] # (Auto) (0.0-0.8) K/uL Eos # (Auto) (0.0-0.7) K/uL Baso # (Auto) (0.0-0.2) K/uL Neutrophils % (Manual) (50-75) % Band Neutrophils % (0-2) % Lymphocytes % (Manual) (20-40) % Monocytes % (Manual) (0-10) % Eosinophils % (Manual) (0-4) % Platelet Estimate (NORMAL) Polychromasia Hypochromasia (manual) Anisocytosis (manual) PT (9.7-12.2) SECONDS INR APTT (21-34) SECONDS Puncture Site Rb Rb pCO2 43 27 L (35-45) mm/Hg pO2 109 H 74 L (80-100) mm/Hg HCO3 26.2 30.6 H (21-28) mmol/L ABG pH 7.40 7.62 H* (7.35-7.45) ABG Total CO2 27.9 28.6 H (22-28) mmol/L ABG O2 Saturation 98.9 H 98.7 H (95-98) % ABG Base Excess 1.6 7.3 H (-2.0-3.0) mmol/L ABG Hemoglobin 9.5 L (11.7-17.4) g/dL ABG Carboxyhemoglobin 2.1 H (0.5-1.5) % POC ABG HHb (Measured) 1.1 (0.0-5.0) % ABG Methemoglobin 0.6 (0.0-3.0) % Kevon Test Na Na ABG Potassium 3.1 L (3.6-5.2) mmol/L A-a O2 Difference 194.0 249.0 mm/Hg Respiratory Index 1.8 3.4 Hgb O2 Saturation 96.2 (95.0-98.0) % Glucose 123 H (65-105) mg/dl Lactate 1.0 (0.7-2.1) mmol/L Vent Mode Prvc Prvc Mechanical Rate 10 16 FiO2 50.0 50.0 % Tidal Volume 450 450 PEEP 7 5 Crit Value Called To Rohit costa/rn Crit Value Called By Silvano telles/rt Crit Value Read Back Y Blood Gas Notified Time 125 Sodium 145.0 (132-148) mmol/L Potassium (3.6-5.2) mmol/L Chloride 117.0 H (98-107) mmol/L Carbon Dioxide (22-30) mmol/L Anion Gap (10-20) BUN (7-17) mg/dL Creatinine (0.7-1.2) mg/dL Est GFR ( Amer) Est GFR (Non-Af Amer) POC Glucose (mg/dL) 172 H (65-110) mg/dL Random Glucose (65-105) mg/dL Lactic Acid (0.7-2.1) mmol/L Calcium (8.6-10.4) mg/dl Phosphorus (2.5-4.5) mg/dL Magnesium (1.6-2.3) mg/dL Total Bilirubin (0.2-1.3) mg/dL AST (14-36) U/L ALT (9-52) U/L Alkaline Phosphatase (38-126) U/L Total Protein (6.3-8.3) g/dL Albumin (3.5-5.0) g/dL Globulin (2.2-3.9) gm/dL Albumin/Globulin Ratio (1.0-2.1) Free T4 (0.78-2.19) ng/dL Total T3 (1.49-2.60) nmol/L TSH 3rd Generation (0.46-4.68) mIU/L Thyroid Stim Immunoglob (<140) % baseline Arterial Blood Potassium 3.1 L (3.6-5.2) mmol/L Vancomycin Trough (5.0-10.0) ug/mL 07/20/18 07/20/18 07/19/18 Range/Units 01:13 00:10 23:48 WBC (4.8-10.8) K/uL RBC (3.80-5.20) Mil/uL Hgb (11.0-16.0) g/dL Hct (34.0-47.0) % MCV (81.0-99.0) fL MCH (27.0-31.0) pg MCHC (33.0-37.0) g/dL RDW (11.5-14.5) % Plt Count (130-400) K/uL MPV (7.2-11.7) fL Neut % (Auto) (50.0-75.0) % Lymph % (Auto) (20.0-40.0) % [place] % (Auto) (0.0-10.0) % Eos % (Auto) (0.0-4.0) % Baso % (Auto) (0.0-2.0) % Neut # (Auto) (1.8-7.0) K/uL Lymph # (Auto) (1.0-4.3) K/uL [place] # (Auto) (0.0-0.8) K/uL Eos # (Auto) (0.0-0.7) K/uL Baso # (Auto) (0.0-0.2) K/uL Neutrophils % (Manual) (50-75) % Band Neutrophils % (0-2) % Lymphocytes % (Manual) (20-40) % Monocytes % (Manual) (0-10) % Eosinophils % (Manual) (0-4) % Platelet Estimate (NORMAL) Polychromasia Hypochromasia (manual) Anisocytosis (manual) PT (9.7-12.2) SECONDS INR APTT (21-34) SECONDS Puncture Site pCO2 (35-45) mm/Hg pO2 (80-100) mm/Hg HCO3 (21-28) mmol/L ABG pH (7.35-7.45) ABG Total CO2 (22-28) mmol/L ABG O2 Saturation (95-98) % ABG Base Excess (-2.0-3.0) mmol/L ABG Hemoglobin (11.7-17.4) g/dL ABG Carboxyhemoglobin (0.5-1.5) % POC ABG HHb (Measured) (0.0-5.0) % ABG Methemoglobin (0.0-3.0) % Kevon Test ABG Potassium (3.6-5.2) mmol/L A-a O2 Difference mm/Hg Respiratory Index Hgb O2 Saturation (95.0-98.0) % Glucose (65-105) mg/dl Lactate (0.7-2.1) mmol/L Vent Mode Mechanical Rate FiO2 % Tidal Volume PEEP Crit Value Called To Crit Value Called By Crit Value Read Back Blood Gas Notified Time Sodium 145 (132-148) mmol/L Potassium 3.1 L (3.6-5.2) mmol/L Chloride 108 H (98-107) mmol/L Carbon Dioxide 30 (22-30) mmol/L Anion Gap 9 L (10-20) BUN 31 H (7-17) mg/dL Creatinine 1.1 (0.7-1.2) mg/dL Est GFR ( Amer) > 60 Est GFR (Non-Af Amer) 52 POC Glucose (mg/dL) 130 H 53 L (65-110) mg/dL Random Glucose 137 H (65-105) mg/dL Lactic Acid (0.7-2.1) mmol/L Calcium 8.0 L (8.6-10.4) mg/dl Phosphorus 2.4 L (2.5-4.5) mg/dL Magnesium 1.7 (1.6-2.3) mg/dL Total Bilirubin 0.8 (0.2-1.3) mg/dL AST 28 (14-36) U/L ALT 40 (9-52) U/L Alkaline Phosphatase 105 (38-126) U/L Total Protein 4.7 L (6.3-8.3) g/dL Albumin 2.2 L (3.5-5.0) g/dL Globulin 2.5 (2.2-3.9) gm/dL Albumin/Globulin Ratio 0.9 L (1.0-2.1) Free T4 (0.78-2.19) ng/dL Total T3 (1.49-2.60) nmol/L TSH 3rd Generation (0.46-4.68) mIU/L Thyroid Stim Immunoglob (<140) % baseline Arterial Blood Potassium (3.6-5.2) mmol/L Vancomycin Trough (5.0-10.0) ug/mL 07/19/18 07/19/18 07/19/18 Range/Units 23:47 18:01 17:14 WBC (4.8-10.8) K/uL RBC (3.80-5.20) Mil/uL Hgb (11.0-16.0) g/dL Hct (34.0-47.0) % MCV (81.0-99.0) fL MCH (27.0-31.0) pg MCHC (33.0-37.0) g/dL RDW (11.5-14.5) % Plt Count (130-400) K/uL MPV (7.2-11.7) fL Neut % (Auto) (50.0-75.0) % Lymph % (Auto) (20.0-40.0) % [place] % (Auto) (0.0-10.0) % Eos % (Auto) (0.0-4.0) % Baso % (Auto) (0.0-2.0) % Neut # (Auto) (1.8-7.0) K/uL Lymph # (Auto) (1.0-4.3) K/uL [place] # (Auto) (0.0-0.8) K/uL Eos # (Auto) (0.0-0.7) K/uL Baso # (Auto) (0.0-0.2) K/uL Neutrophils % (Manual) (50-75) % Band Neutrophils % (0-2) % Lymphocytes % (Manual) (20-40) % Monocytes % (Manual) (0-10) % Eosinophils % (Manual) (0-4) % Platelet Estimate (NORMAL) Polychromasia Hypochromasia (manual) Anisocytosis (manual) PT (9.7-12.2) SECONDS INR APTT (21-34) SECONDS Puncture Site pCO2 (35-45) mm/Hg pO2 (80-100) mm/Hg HCO3 (21-28) mmol/L ABG pH (7.35-7.45) ABG Total CO2 (22-28) mmol/L ABG O2 Saturation (95-98) % ABG Base Excess (-2.0-3.0) mmol/L ABG Hemoglobin (11.7-17.4) g/dL ABG Carboxyhemoglobin (0.5-1.5) % POC ABG HHb (Measured) (0.0-5.0) % ABG Methemoglobin (0.0-3.0) % Kevon Test ABG Potassium (3.6-5.2) mmol/L A-a O2 Difference mm/Hg Respiratory Index Hgb O2 Saturation (95.0-98.0) % Glucose (65-105) mg/dl Lactate (0.7-2.1) mmol/L Vent Mode Mechanical Rate FiO2 % Tidal Volume PEEP Crit Value Called To Crit Value Called By Crit Value Read Back Blood Gas Notified Time Sodium (132-148) mmol/L Potassium (3.6-5.2) mmol/L Chloride (98-107) mmol/L Carbon Dioxide (22-30) mmol/L Anion Gap (10-20) BUN (7-17) mg/dL Creatinine (0.7-1.2) mg/dL Est GFR ( Amer) Est GFR (Non-Af Amer) POC Glucose (mg/dL) 56 L 106 (65-110) mg/dL Random Glucose (65-105) mg/dL Lactic Acid (0.7-2.1) mmol/L Calcium (8.6-10.4) mg/dl Phosphorus (2.5-4.5) mg/dL Magnesium (1.6-2.3) mg/dL Total Bilirubin (0.2-1.3) mg/dL AST (14-36) U/L ALT (9-52) U/L Alkaline Phosphatase (38-126) U/L Total Protein (6.3-8.3) g/dL Albumin (3.5-5.0) g/dL Globulin (2.2-3.9) gm/dL Albumin/Globulin Ratio (1.0-2.1) Free T4 (0.78-2.19) ng/dL Total T3 (1.49-2.60) nmol/L TSH 3rd Generation (0.46-4.68) mIU/L Thyroid Stim Immunoglob (<140) % baseline Arterial Blood Potassium (3.6-5.2) mmol/L Vancomycin Trough 18.5 H (5.0-10.0) ug/mL 07/19/18 07/16/18 Range/Units 11:38 10:25 WBC (4.8-10.8) K/uL RBC (3.80-5.20) Mil/uL Hgb (11.0-16.0) g/dL Hct (34.0-47.0) % MCV (81.0-99.0) fL MCH (27.0-31.0) pg MCHC (33.0-37.0) g/dL RDW (11.5-14.5) % Plt Count (130-400) K/uL MPV (7.2-11.7) fL Neut % (Auto) (50.0-75.0) % Lymph % (Auto) (20.0-40.0) % [place] % (Auto) (0.0-10.0) % Eos % (Auto) (0.0-4.0) % Baso % (Auto) (0.0-2.0) % Neut # (Auto) (1.8-7.0) K/uL Lymph # (Auto) (1.0-4.3) K/uL [place] # (Auto) (0.0-0.8) K/uL Eos # (Auto) (0.0-0.7) K/uL Baso # (Auto) (0.0-0.2) K/uL Neutrophils % (Manual) (50-75) % Band Neutrophils % (0-2) % Lymphocytes % (Manual) (20-40) % Monocytes % (Manual) (0-10) % Eosinophils % (Manual) (0-4) % Platelet Estimate (NORMAL) Polychromasia Hypochromasia (manual) Anisocytosis (manual) PT (9.7-12.2) SECONDS INR APTT (21-34) SECONDS Puncture Site pCO2 (35-45) mm/Hg pO2 (80-100) mm/Hg HCO3 (21-28) mmol/L ABG pH (7.35-7.45) ABG Total CO2 (22-28) mmol/L ABG O2 Saturation (95-98) % ABG Base Excess (-2.0-3.0) mmol/L ABG Hemoglobin (11.7-17.4) g/dL ABG Carboxyhemoglobin (0.5-1.5) % POC ABG HHb (Measured) (0.0-5.0) % ABG Methemoglobin (0.0-3.0) % Kevon Test ABG Potassium (3.6-5.2) mmol/L A-a O2 Difference mm/Hg Respiratory Index Hgb O2 Saturation (95.0-98.0) % Glucose (65-105) mg/dl Lactate (0.7-2.1) mmol/L Vent Mode Mechanical Rate FiO2 % Tidal Volume PEEP Crit Value Called To Crit Value Called By Crit Value Read Back Blood Gas Notified Time Sodium (132-148) mmol/L Potassium (3.6-5.2) mmol/L Chloride (98-107) mmol/L Carbon Dioxide (22-30) mmol/L Anion Gap (10-20) BUN (7-17) mg/dL Creatinine (0.7-1.2) mg/dL Est GFR ( Amer) Est GFR (Non-Af Amer) POC Glucose (mg/dL) 142 H (65-110) mg/dL Random Glucose (65-105) mg/dL Lactic Acid (0.7-2.1) mmol/L Calcium (8.6-10.4) mg/dl Phosphorus (2.5-4.5) mg/dL Magnesium (1.6-2.3) mg/dL Total Bilirubin (0.2-1.3) mg/dL AST (14-36) U/L ALT (9-52) U/L Alkaline Phosphatase (38-126) U/L Total Protein (6.3-8.3) g/dL Albumin (3.5-5.0) g/dL Globulin (2.2-3.9) gm/dL Albumin/Globulin Ratio (1.0-2.1) Free T4 (0.78-2.19) ng/dL Total T3 (1.49-2.60) nmol/L TSH 3rd Generation (0.46-4.68) mIU/L Thyroid Stim Immunoglob <89 (<140) % baseline Arterial Blood Potassium (3.6-5.2) mmol/L Vancomycin Trough (5.0-10.0) ug/mL Laboratory Results - last 24 hr 07/16/18 07/19/18 07/19/18 10:25 11:38 17:14 WBC RBC Hgb Hct MCV MCH MCHC RDW Plt Count MPV Neut % (Auto) Lymph % (Auto) [place] % (Auto) Eos % (Auto) Baso % (Auto) Neut # (Auto) Lymph # (Auto) [place] # (Auto) Eos # (Auto) Baso # (Auto) Neutrophils % (Manual) Band Neutrophils % Lymphocytes % (Manual) Monocytes % (Manual) Eosinophils % (Manual) Platelet Estimate Polychromasia Hypochromasia (manual) Anisocytosis (manual) PT INR APTT Puncture Site pCO2 pO2 HCO3 ABG pH ABG Total CO2 ABG O2 Saturation ABG Base Excess ABG Hemoglobin ABG Carboxyhemoglobin POC ABG HHb (Measured) ABG Methemoglobin [place] Test ABG Potassium A-a O2 Difference Respiratory Index Hgb O2 Saturation Glucose Lactate Vent Mode Mechanical Rate FiO2 Tidal Volume PEEP Crit Value Called To Crit Value Called By Crit Value Read Back Blood Gas Notified Time Sodium Potassium Chloride Carbon Dioxide Anion Gap BUN Creatinine Est GFR ( Amer) Est GFR (Non-Af Amer) POC Glucose (mg/dL) 142 H Random Glucose Lactic Acid Calcium Phosphorus Magnesium Total Bilirubin AST ALT Alkaline Phosphatase Total Protein Albumin Globulin Albumin/Globulin Ratio Free T4 Total T3 TSH 3rd Generation Thyroid Stim Immunoglob <89 Arterial Blood Potassium Vancomycin Trough 18.5 H 07/19/18 07/19/18 07/19/18 18:01 23:47 23:48 WBC RBC Hgb Hct MCV MCH MCHC RDW Plt Count MPV Neut % (Auto) Lymph % (Auto) [place] % (Auto) Eos % (Auto) Baso % (Auto) Neut # (Auto) Lymph # (Auto) [place] # (Auto) Eos # (Auto) Baso # (Auto) Neutrophils % (Manual) Band Neutrophils % Lymphocytes % (Manual) Monocytes % (Manual) Eosinophils % (Manual) Platelet Estimate Polychromasia Hypochromasia (manual) Anisocytosis (manual) PT INR APTT Puncture Site pCO2 pO2 HCO3 ABG pH ABG Total CO2 ABG O2 Saturation ABG Base Excess ABG Hemoglobin ABG Carboxyhemoglobin POC ABG HHb (Measured) ABG Methemoglobin [place] Test ABG Potassium A-a O2 Difference Respiratory Index Hgb O2 Saturation Glucose Lactate Vent Mode Mechanical Rate FiO2 Tidal Volume PEEP Crit Value Called To Crit Value Called By Crit Value Read Back Blood Gas Notified Time Sodium Potassium Chloride Carbon Dioxide Anion Gap BUN Creatinine Est GFR ( Amer) Est GFR (Non-Af Amer) POC Glucose (mg/dL) 106 56 L 53 L Random Glucose Lactic Acid Calcium Phosphorus Magnesium Total Bilirubin AST ALT Alkaline Phosphatase Total Protein Albumin Globulin Albumin/Globulin Ratio Free T4 Total T3 TSH 3rd Generation Thyroid Stim Immunoglob Arterial Blood Potassium Vancomycin Trough 07/20/18 07/20/18 07/20/18 00:10 01:13 01:15 WBC RBC Hgb Hct MCV MCH MCHC RDW Plt Count MPV Neut % (Auto) Lymph % (Auto) [place] % (Auto) Eos % (Auto) Baso % (Auto) Neut # (Auto) Lymph # (Auto) [place] # (Auto) Eos # (Auto) Baso # (Auto) Neutrophils % (Manual) Band Neutrophils % Lymphocytes % (Manual) Monocytes % (Manual) Eosinophils % (Manual) Platelet Estimate Polychromasia Hypochromasia (manual) Anisocytosis (manual) PT INR APTT Puncture Site Rb pCO2 27 L pO2 74 L HCO3 30.6 H ABG pH 7.62 H* ABG Total CO2 28.6 H ABG O2 Saturation 98.7 H ABG Base Excess 7.3 H ABG Hemoglobin ABG Carboxyhemoglobin POC ABG HHb (Measured) ABG Methemoglobin [place] Test Na ABG Potassium 3.1 L A-a O2 Difference 249.0 Respiratory Index 3.4 Hgb O2 Saturation Glucose 123 H Lactate 1.0 Vent Mode Prvc Mechanical Rate 16 FiO2 50.0 Tidal Volume 450 PEEP 5 Crit Value Called To Rohit costa/rn Crit Value Called By Silvano telles/rt Crit Value Read Back Y Blood Gas Notified Time 125 Sodium 145 145.0 Potassium 3.1 L Chloride 108 H 117.0 H Carbon Dioxide 30 Anion Gap 9 L BUN 31 H Creatinine 1.1 Est GFR ( Amer) > 60 Est GFR (Non-Af Amer) 52 POC Glucose (mg/dL) 130 H Random Glucose 137 H Lactic Acid Calcium 8.0 L Phosphorus 2.4 L Magnesium 1.7 Total Bilirubin 0.8 AST 28 ALT 40 Alkaline Phosphatase 105 Total Protein 4.7 L Albumin 2.2 L Globulin 2.5 Albumin/Globulin Ratio 0.9 L Free T4 Total T3 TSH 3rd Generation Thyroid Stim Immunoglob Arterial Blood Potassium 3.1 L Vancomycin Trough 07/20/18 07/20/18 07/20/18 04:30 06:07 06:22 WBC 17.0 H D RBC 3.09 L Hgb 9.1 L Hct 28.1 L MCV 91.0 MCH 29.5 MCHC 32.4 L RDW 15.8 H Plt Count 202 MPV 10.5 Neut % (Auto) 83.8 H Lymph % (Auto) 8.5 L [place] % (Auto) 6.0 Eos % (Auto) 1.4 Baso % (Auto) 0.3 Neut # (Auto) 14.2 H Lymph # (Auto) 1.4 [place] # (Auto) 1.0 H Eos # (Auto) 0.2 Baso # (Auto) 0.0 Neutrophils % (Manual) 73 Band Neutrophils % 7 H Lymphocytes % (Manual) 13 L Monocytes % (Manual) 6 Eosinophils % (Manual) 1 Platelet Estimate Normal Polychromasia Slight Hypochromasia (manual) Slight Anisocytosis (manual) Slight PT INR APTT Puncture Site Rb pCO2 43 pO2 109 H HCO3 26.2 ABG pH 7.40 ABG Total CO2 27.9 ABG O2 Saturation 98.9 H ABG Base Excess 1.6 ABG Hemoglobin 9.5 L ABG Carboxyhemoglobin 2.1 H POC ABG HHb (Measured) 1.1 ABG Methemoglobin 0.6 Kev[place] Test Na ABG Potassium A-a O2 Difference 194.0 Respiratory Index 1.8 Hgb O2 Saturation 96.2 Glucose Lactate Vent Mode Prvc Mechanical Rate 10 FiO2 50.0 Tidal Volume 450 PEEP 7 Crit Value Called To Crit Value Called By Crit Value Read Back Blood Gas Notified Time Sodium Potassium Chloride Carbon Dioxide Anion Gap BUN Creatinine Est GFR ( Amer) Est GFR (Non-Af Amer) POC Glucose (mg/dL) 172 H Random Glucose Lactic Acid Calcium Phosphorus Magnesium Total Bilirubin AST ALT Alkaline Phosphatase Total Protein Albumin Globulin Albumin/Globulin Ratio Free T4 Total T3 TSH 3rd Generation Thyroid Stim Immunoglob Arterial Blood Potassium Vancomycin Trough 07/20/18 07/20/18 07/20/18 06:22 11:18 11:18 WBC RBC Hgb Hct MCV MCH MCHC RDW Plt Count MPV Neut % (Auto) Lymph % (Auto) [place] % (Auto) Eos % (Auto) Baso % (Auto) Neut # (Auto) Lymph # (Auto) [place] # (Auto) Eos # (Auto) Baso # (Auto) Neutrophils % (Manual) Band Neutrophils % Lymphocytes % (Manual) Monocytes % (Manual) Eosinophils % (Manual) Platelet Estimate Polychromasia Hypochromasia (manual) Anisocytosis (manual) PT INR APTT Puncture Site pCO2 pO2 HCO3 ABG pH ABG Total CO2 ABG O2 Saturation ABG Base Excess ABG Hemoglobin ABG Carboxyhemoglobin POC ABG HHb (Measured) ABG Methemoglobin [place] Test ABG Potassium A-a O2 Difference Respiratory Index Hgb O2 Saturation Glucose Lactate Vent Mode Mechanical Rate FiO2 Tidal Volume PEEP Crit Value Called To Crit Value Called By Crit Value Read Back Blood Gas Notified Time Sodium 143 Potassium 5.5 H Chloride 108 H Carbon Dioxide 30 Anion Gap 10 BUN 29 H Creatinine 1.2 Est GFR ( Amer) 57 Est GFR (Non-Af Amer) 47 POC Glucose (mg/dL) Random Glucose 170 H Lactic Acid Calcium 8.4 L Phosphorus 3.2 Magnesium 2.5 H Total Bilirubin 1.2 AST 41 H D ALT 54 H D Alkaline Phosphatase 121 Total Protein 5.2 L Albumin 2.4 L Globulin 2.8 Albumin/Globulin Ratio 0.9 L Free T4 Total T3 TSH 3rd Generation < 0.02 L Thyroid Stim Immunoglob Arterial Blood Potassium Vancomycin Trough 24.0 H 07/20/18 07/20/18 07/20/18 11:18 11:19 11:19 WBC RBC Hgb Hct MCV MCH MCHC RDW Plt Count MPV Neut % (Auto) Lymph % (Auto) [place] % (Auto) Eos % (Auto) Baso % (Auto) Neut # (Auto) Lymph # (Auto) [place] # (Auto) Eos # (Auto) Baso # (Auto) Neutrophils % (Manual) Band Neutrophils % Lymphocytes % (Manual) Monocytes % (Manual) Eosinophils % (Manual) Platelet Estimate Polychromasia Hypochromasia (manual) Anisocytosis (manual) PT 17.2 H INR 1.6 APTT 32 Puncture Site pCO2 pO2 HCO3 ABG pH ABG Total CO2 ABG O2 Saturation ABG Base Excess ABG Hemoglobin ABG Carboxyhemoglobin POC ABG HHb (Measured) ABG Methemoglobin [place] Test ABG Potassium A-a O2 Difference Respiratory Index Hgb O2 Saturation Glucose Lactate Vent Mode Mechanical Rate FiO2 Tidal Volume PEEP Crit Value Called To Crit Value Called By Crit Value Read Back Blood Gas Notified Time Sodium Potassium Chloride Carbon Dioxide Anion Gap BUN Creatinine Est GFR ( Amer) Est GFR (Non-Af Amer) POC Glucose (mg/dL) Random Glucose Lactic Acid 0.9 Calcium Phosphorus Magnesium Total Bilirubin AST ALT Alkaline Phosphatase Total Protein Albumin Globulin Albumin/Globulin Ratio Free T4 2.35 H Total T3 TSH 3rd Generation Thyroid Stim Immunoglob Arterial Blood Potassium Vancomycin Trough 07/20/18 07/20/18 11:39 12:27 WBC 14.4 H RBC 2.89 L Hgb 8.6 L Hct 26.0 L MCV 90.0 MCH 29.9 MCHC 33.2 RDW 15.7 H Plt Count 216 MPV 9.7 Neut % (Auto) 83.3 H Lymph % (Auto) 9.4 L [place] % (Auto) 5.2 Eos % (Auto) 1.5 Baso % (Auto) 0.6 Neut # (Auto) 12.0 H Lymph # (Auto) 1.4 [place] # (Auto) 0.8 Eos # (Auto) 0.2 Baso # (Auto) 0.1 Neutrophils % (Manual) 79 H Band Neutrophils % 3 H Lymphocytes % (Manual) 12 L Monocytes % (Manual) 4 Eosinophils % (Manual) 2 Platelet Estimate Normal Polychromasia Slight Hypochromasia (manual) Slight Anisocytosis (manual) Slight PT INR APTT Puncture Site pCO2 pO2 HCO3 ABG pH ABG Total CO2 ABG O2 Saturation ABG Base Excess ABG Hemoglobin ABG Carboxyhemoglobin POC ABG HHb (Measured) ABG Methemoglobin [place] Test ABG Potassium A-a O2 Difference Respiratory Index Hgb O2 Saturation Glucose Lactate Vent Mode Mechanical Rate FiO2 Tidal Volume PEEP Crit Value Called To Crit Value Called By Crit Value Read Back Blood Gas Notified Time Sodium 141 Potassium 4.3 Chloride 107 Carbon Dioxide 27 Anion Gap 11 BUN 27 H Creatinine 1.1 Est GFR ( Amer) > 60 Est GFR (Non-Af Amer) 52 POC Glucose (mg/dL) Random Glucose 177 H Lactic Acid Calcium 8.1 L Phosphorus 2.9 Magnesium 2.2 Total Bilirubin 0.8 AST 28 ALT 42 Alkaline Phosphatase 100 Total Protein 4.9 L Albumin 2.1 L Globulin 2.7 Albumin/Globulin Ratio 0.8 L Free T4 Total T3 0.857 L TSH 3rd Generation Thyroid Stim Immunoglob Arterial Blood Potassium Vancomycin Trough EKG/Cardiology Studies: Cardiology / EKG Studies 07/20/18 01:09 ELECTROCARDIOGRAM Stat Comment: Mode Of Transportation: PORTABLE Reason For Exam: change in [facility] PERFORMING PHYSICIAN/PROVIDER:: Merlin Oshea Attending/Attestation - Attestation I have personally seen and examined this patient.: Yes I have fully participated in the care of the patient.: Yes I have reviewed all pertinent clinical information: Yes Notes (Text): 07/20/18 15:49 Today: July The Patient was seen and examined at the bedside, Medical records reviewed, and management issues were discussed and formulated with the house staff. I have reviewed all the relevant clinical, laboratory, hemodynamic, radiographic data and medications Events reviewed Pain issues, skin care, head of the bed elevation, glycemic control were addressed. Agree with above resident's assessment and treatment plans of care as transcribed in Dr. Hinkle's note Critically ill patient with acute hypoxemic respiratory failure, acute pulmonary edema, Septic shock, with worsening renal function Now On Levophed, Broaden IV Antibiotics, repeat cultures MAP >70 Discussed with the family in details diagnosis, treatment plans and alternatives, GI PPX: Protonix 40 mg PO DVT PPX: Eliquis Code status: Full code Total critical care time 35 minutes.
[2018-07-20 12:18] LABS: BANDS 3 % (0-2); EOSINOPHIL 2 % (0-4); LYMPHOCYTE 12 % (20-40); MONOCYTE 4 % (0-10); NEUTROPHIL 79 % (50-75); TOTAL CELLS COUNTED 100
[2018-07-20 12:19] LABS: ANISOCYTOSIS SLIGHT; HYPOCHROMIC SLIGHT; PLATELET ESTIMATE NORMAL (NORMAL); POLYCHROMIC SLIGHT
[2018-07-20] MEDS: Meropenem 1 GM in Sodium Chloride 0.9% 100 ML IVPB SCH ×2 (12:30→19:02)
[2018-07-20 13:28] LABS: ALB/GLOB RATIO 0.8 (1.0-2.1); ALBUMIN 2.1 g/dL (3.5-5.0); ALT/SGPT 42 U/L (9-52); AST/SGOT 28 U/L (14-36); BLOOD UREA NITROGEN 27 mg/dL (7-17); CALCIUM 8.1 mg/dl (8.6-10.4); GFR NON-AFRICAN AMERICAN 52; T3 0.857 nmol/L (1.49-2.60)
--- NOTE | 2018-07-20 17:29 | CP.PCM.PN ---
Subjective - Date & Time of Evaluation Date of Evaluation: 07/20/18 Time of Evaluation: 09:00 - Subjective Subjective: reintubated- new infiltrates + fever / tachycardia cultures repeated merrem added Objective - Vital Signs/Intake and Output Vital Signs (last 24 hours): Temp Pulse Resp BP Pulse Ox 98.6 F 74 17 136/63 100 07/20/18 16:00 07/20/18 17:00 07/20/18 17:00 07/20/18 17:04 07/20/18 17:00 Intake and Output: 07/20/18 07/20/18 06:59 18:59 Intake Total 1165.95 721.85 Output Total 700 Balance 465.95 721.85 - Medications Medications: Current Medications Acetaminophen (Tylenol 325mg Tab) 650 mg PO Q6 PRN PRN Reason: Fever >100.4 F Last Admin: 07/19/18 21:04 Dose: 650 mg Albuterol/Ipratropium (Duoneb 3 Mg/0.5 Mg (3 Ml) Ud) 3 ml INH RQ6 [facility] Last Admin: 07/20/18 13:51 Dose: Not Given Apixaban (Eliquis) 2.5 mg PO BID [facility] Last Admin: 07/20/18 17:04 Dose: 2.5 mg Aspirin (Aspirin Chewable) 81 mg GT DAILY [facility] Last Admin: 07/20/18 10:10 Dose: 81 mg Ergocalciferol (Drisdol 50,000 Intl Units Cap) 1 cap PO Q7D [facility] Last Admin: 07/18/18 12:07 Dose: 1 cap Furosemide (Lasix) 20 mg IVP BID [facility] Last Admin: 07/20/18 17:04 Dose: 20 mg Vancomycin HCl 1 gm/ Sodium (Chloride) 250 mls @ 166.7 mls/hr IVPB Q24H [facility]; Protocol Last Admin: 07/19/18 17:00 Dose: 166.7 mls/hr Dexmedetomidine HCl 200 mcg/ (Sodium Chloride) 50 mls @ 2.91 mls/hr IV TITR PRN; Protocol PRN Reason: Sedation Last Titration: 07/20/18 15:00 Dose: 0.2 mcg/kg/hr, 2.91 mls/hr Norepinephrine Bitartrate 4 mg (/ Dextrose) 254 mls @ 15.24 mls/hr IV .[id number] PRN; Protocol PRN Reason: TITRATE PER MD ORDER Last Admin: 07/20/18 10:00 Dose: 8 mcg/min, 30.48 mls/hr Meropenem 1 gm/ Sodium (Chloride) 100 mls @ 100 mls/hr IVPB Q8H [facility]; Protocol Last Admin: 07/20/18 12:30 Dose: 100 mls/hr Insulin Aspart (Novolog) 0 unit SC Q6 [facility]; Protocol Last Admin: 07/20/18 12:11 Dose: 4 units Insulin Glargine (Lantus) 20 unit SC Q12 [facility] Last Admin: 07/20/18 09:10 Dose: 10 u Lactobacillus Acidophilus (Bacid Acidophilus) 1 cap PO Q12H [facility] Last Admin: 07/20/18 08:20 Dose: 1 cap Methimazole (Tapazole) 10 mg PO TID [facility] Last Admin: 07/20/18 17:04 Dose: 10 mg Pantoprazole Sodium (Protonix Susp) 40 mg PO DAILY [facility] Last Admin: 07/20/18 10:12 Dose: Not Given Propranolol HCl (Inderal) 5 mg PO TID [facility] Last Admin: 07/20/18 17:04 Dose: 5 mg Rosuvastatin Calcium (Crestor) 2.5 mg PO HS [facility] Last Admin: 07/19/18 23:35 Dose: 2.5 mg - Labs Labs: 07/20/18 11:39 07/20/18 12:27 PT 17.2 SECONDS (9.7-12.2) H 07/20/18 11:18 INR 1.6 07/20/18 11:18 APTT 32 SECONDS (21-34) 07/20/18 11:18 - Constitutional Appears: Non-toxic, Chronically Ill - Head Exam Head Exam: NORMOCEPHALIC - Eye Exam Eye Exam: absent: Scleral icterus - ENT Exam ENT Exam: Mucous Membranes Dry - Neck Exam Neck Exam: absent: Lymphadenopathy - Respiratory Exam Respiratory Exam: Decreased Breath Sounds - Cardiovascular Exam Cardiovascular Exam: REGULAR RHYTHM - GI/Abdominal Exam GI & Abdominal Exam: Distended - Rectal Exam Rectal Exam: Deferred - Exam Exam: NORMAL INSPECTION Assessment and Plan (1) NEHA (acute kidney injury) Status: Acute (2) Acute renal failure Status: Acute (3) Acute respiratory failure Status: Acute (4) Aspiration pneumonia Status: Acute (5) Septic shock Status: Acute (6) Urinary tract infection Status: Acute (7) Diabetes mellitus Status: Chronic
[2018-07-20] MEDS: Rosuvastatin Calcium 2.5 mg Tab PO SCH (21:14)
[2018-07-20] MEDS: Dexmedetomidine Hydrochloride 200 MCG in Sodium Chloride 0.9% 48 ML IV PRN ×2 (21:46)
[2018-07-21] MEDS: (Novolog) Insulin Aspart, Recombinant 100 u/ml 10 ml vial SC SCH ×4 (00:36→18:00)
[2018-07-21] MEDS: Albuterol-Ipratrop 3 mg / 0.5 (3 ml) UD INH SCH ×4 (01:15→19:47)
[2018-07-21] MEDS: Meropenem 1 GM in Sodium Chloride 0.9% 100 ML IVPB SCH ×3 (04:01→19:45)
[2018-07-21 05:35] LABS: ABG ALLEN TEST POS; ARTERIAL BLOOD GAS HCO3 27.5 mmol/L (21-28); ARTERIAL BLOOD GAS HEMOGLOBIN 7.7 g/dL (11.7-17.4); ARTERIAL BLOOD GAS O2 SAT 100.4 % (95-98); ARTERIAL BLOOD GAS PCO2 34 mm/Hg (35-45); ARTERIAL BLOOD GAS PO2 153 mm/Hg (80-100); ARTERIAL BLOOD GAS TCO2 27.5 mmol/L (22-28)
[2018-07-21 06:05] LABS: BASO % 0.3 % (0.0-2.0); EOS # 0.2 K/uL (0.0-0.7); EOS % 2.9 % (0.0-4.0); LYMPH # 1.1 K/uL (1.0-4.3); LYMPH % 15.6 % (20.0-40.0); MEAN CELL VOLUME 89.5 fL (81.0-99.0); MEAN CORPUSCULAR HEMOGLOBIN 30.6 pg (27.0-31.0); MEAN CORPUSCULAR HGB CONC 34.2 g/dL (33.0-37.0); MEAN PLATELET VOLUME 9.7 fL (7.2-11.7); MONO # 0.5 K/uL (0.0-0.8); MONO % 7.5 % (0.0-10.0); NEUT # 5.1 K/uL (1.8-7.0); NEUT % 73.7 % (50.0-75.0); RBC 2.62 Mil/uL (3.80-5.20); RED CELL DISTRIBUTION WIDTH 15.3 % (11.5-14.5)
[2018-07-21 06:46] LABS: ALB/GLOB RATIO 0.9 (1.0-2.1); ALBUMIN 2.4 g/dL (3.5-5.0); ALT/SGPT 43 U/L (9-52); AST/SGOT 30 U/L (14-36); BLOOD UREA NITROGEN 25 mg/dL (7-17); CALCIUM 8.2 mg/dl (8.6-10.4); GFR NON-AFRICAN AMERICAN 52
[2018-07-21] MEDS ORDERED: Potassium Phosphate 15 MMOLE in Sodium Chloride 0.9% 250 ML IVPB ONE (07:57)
--- NOTE | 2018-07-21 08:31 | RAD ---
Date of service: 07/21/2018 HISTORY: s/p intubation COMPARISON: 07/20/2018 FINDINGS: LUNGS: Biapical pleural thickening with upper lobe granulomatous changes. Scattered nodular densities in both lung james. Diffuse increased interstitial lung markings. Right hilar prominence. More patchy nodular consolidative changes in the right suprahilar region. PLEURA: No significant pleural effusion identified, no pneumothorax apparent. CARDIOVASCULAR: Aortic atherosclerotic calcification present. Normal. OSSEOUS STRUCTURES: No significant abnormalities. VISUALIZED UPPER ABDOMEN: Normal. OTHER FINDINGS: None. IMPRESSION: Biapical pleural thickening with upper lobe granulomatous changes. Scattered nodular densities in both lung james. Diffuse increased interstitial lung markings. Right hilar prominence. More patchy nodular consolidative changes in the right suprahilar region.
--- NOTE | 2018-07-21 08:36 | CP.PCM.PN ---
Subjective - Date & Time of Evaluation Date of Evaluation: 07/21/18 Time of Evaluation: 08:15 - Subjective Subjective: Hospitalist Progress Note Patient was seen and examined at 8:15 AM 07/21/18 ICU Bed 9 Patient is still intubated/on-vent as she failed CPAP trial/extubated and then re-intubated 07/19/18 RN PLASTIC SURGERY was called on morning 07/20/18 at 1:32 AM due to V Tach and then a Code Blue: she was given Amiodarone, Epinephrine, Shock, KCl, Mag, Calcium Gluconate and returned to GAIL Chext X Ray this morning reveals biapical pleural thickening with upper lobe granulomatous changes, scattered nodular densities in both lung james, diffuse increased interstitial lung markings, right hilar prominence, more patchy nodular consolidative changes in the right suprahilar region Precedex continues to be held She is currently on Levophed drip for pressure support WBC has normalized and there has been NO fever since fever of 101 F noted on night of 07/19/18 As there was initial WBC elevation on morning of 07/20/18 and concern for possible aspiration at time of extubation on 07/19/18, Ceftriaxone was discontinued and patient was started on Meropenem 1 gm IV Q8H and the Vancomycin is being held due to elevated trough. Follow up Vancomycin Trough for 5:30 AM 07/22/18. Follow up Blood Culture, Sputum Culture, Stool Culture, and Urine Culture done on 07/20/18 EEG showed moderate nonspecific diffuse disturbance of cortical activity in keeping with diffuse borges matter dysfunction and findings do not support a specific etiology She continues to have bowel movements that are now more well formed (pasty) with last one on 07/20/18 General: Intubated on vent HEENT: NCA, Pupils are round and reactive to light, EOMI, NO cervical/supraclavicular/submandibular lymphadenopathy Cardio: NS1 and NS2, NO M/R/G Respiratory: Diffuse course breath sounds bilaterallly are decreased and the lungs are more clear to auscultation GI: BSx4, Soft, ND, NO HSM, NO guarding, NO rebound tenderness Ext: Pulses are strong and equal, Capillary Refill is 2 seconds, NO edema noted Neuro: exam not possible at this time Skin: Blanchable erythema noted on the lower buttocks area 1) Septic Shock Assessment/Plan * Infectious Disease (Dr. Brock) on case-->help appreciated * Tmax: 100.3 F (07/14/18) * Criteria: leukocytosis, tachycardia * Source: aspiration pneumonia and urinary tract infection * 07/07/18: Urine: E. Coli * 07/09/18: Urine: No growth * 07/07/18: Blood culture: no growth after 5 days X2 * 07/09/18 Blood culture: no growth after 5 days X2 * 07/14/18: blood cultures: no growth to date * 07/14/18: sputum culture: yeast species * 07/14/18: Urine culture: no growth * MRSA not detected * Antibiotics * Rocephin 2gm IVPB Q12H (07/14/18 through 07/20/18) * Meropenem 1 gm IV Q8H (active since 07/20/18) * Vancomycin 1 gram IVPB Q24H (being held since 07/20/18). F/U Vancomycin Trough 5:30 PM 07/22/18 2) Acute Respiratory Failure Pulmonary Edema Bilateral Pleural Effusion and Consolidations Likely Secondary to Aspiration Pneumonia Assessment/Plan * Intubated * Tapered down to Solumedrol 20mg IVP daily * Duonebs RQ6H PRN wheezing * MRSA screen: not detected * Sputum culture 07/09/18, 07/12/18, 07/14/18: yeast * Mycoplasma negative * Legionella was negative * Influenza negative * HIV negative * CT Chest 07/15/18: Moderate to large bilateral pleural effusion and associated consolidations, pathcy grround-glass infiltrates/edema noted within bilateral upper lobes * Rocephin 2gm IVPB Q12H (07/14/18 through 07/20/18) * Meropenem 1 gm IV Q8H (active since 07/20/18) * Vancomycin 1 gram IVPB Q24H (being held since 07/20/18). F/U Vancomycin Trough 5:30 PM 07/22/18 * Bedside Thoracic U/S 07/17/18 did not reveal enough pleural effusion for Thoracentesis * Lasix 20 mg IV Q12H * Levophed Drip 3) Ventricular Tachycardia NSTEMI Apical Thrombus Assessment/Plan * Code Blue 07/10: SVT==>VT required amiodarone, magnesium, one shock delivered * Cardiology Dr Francisco on case help appreciated * When patient is stabilized will need further cardiac workup * Echocardiogram (07/07/18): left ventricle systolic function is borderline, ejection fraction is 45-50%, no aortic regurgitation is present, mitral regurg itation is mild. Mild tricuspid regurgitation. mild pulmonary hypertension, mild pulmonic valvular regurgitation * Contrast Echo: Large apical hypokinesis a large 30 x 20 mm soft tissue apical sessile mass suggestive of thrombus overall fraction 40%. Obtain a HUBERT or/consider stress card myopathy if coronary disease is excluded further findings per report * Amiodarone discontinued * Monitor electrolytes * Heparin drip changed to Eliquis 2.5 mg 2x/day 07/18/18 * Aspirin 81 mg PO 1x/day. Considering patient already on Eliquis and to reduce chance of bleeding, Plavix was discontinued 07/18/18. * Switched from Cardizem to Propranolol 1mg IVP Q6H 4) Urinary Tract Infection Assessment/Plan * Infectious disease on board help appreciated * 07/07/18: Urine: E. Coli * 07/09/18: Urine: No growth * 07/14/18: Urine culture: No growth * Follow up Urine Culture 07/20/18 5) Diabetes Assessment/Plan * HgBA1c: 7.8 * Hypoglycemic protocol * Lantus 20 units subcutaneous at bedtime 6) Acute on Chronic Renal Failure Assessment/Plan * Nephrology (Dr. Hyde) on board--> help appreciated * Patient will likely not need dialysis * Renal function continues to improve 7) Hyperthyroidism? Low TSH, and Free T4 Thyroid Storm Assessment/Plan * Note Thyroid studies taken before amiodarone was given (please advised this is not amiodarone induced her levels were abnormal prior) * Patient does not have prior thyroid history * Endocrinology (Dr. 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 She will need outpatient FNA Bx of the complex Left Lobe cyst (please see full report) * Methimazole 10mg PO TID * Propranolol 5 mg PO TID * Monitor LFTs 8) Anemia Likely Secondary to Chronic Diseases Assessment/Plan * Iron normal, TIBC low, Iron Saturation normal, Ferritin normal * Stool occult blood negative * B12 normal * Folate Normal * Improved * Patient is on Eliquis for the Cardiac Apical Thrombus and on Aspirin for the NSTEMI (Plavix was discontinued 07/18/18) 9) Transminitis * Likely secondary to Sepsis and Amiodarone (which was discontinued * Hepatitis serology negative * Slightly elevated from normal on 07/20/18 but could be secondary to RN PLASTIC SURGERY/Code Blue 07/20/18 10) Vitamin D deficiency Assessment plan * 50,000 international units once a week for at least 8-12 weeks started on 07/11/18 11) Thrombocytopenia Assessment plan * Related to HIT, Sepsis, vs Methimazole? * Patient was on Heparin Drip through 07/18/18 and then started on Eliquis on this date * Plavix was disontinued 07/18/18 and she is on ASA * Fibrinogen elevated * Pending HIT/RUSTY * Currently normalized 12) 13 mm Left Adrenal Nodule * As seen on CT Chest 07/16/18 * Will need outpatient follow up for cross sectional imaging for better characterization 13) Hypernatremia * Free water 250 ml 3x/day via OGT * Na now normal 14) Prophylactic measure * Protonix 40mg PO BID * Eliquis 2.5 mg PO BID * Bilateral SCDs * Glucerna Feedings via OGT 45 ml/hour * Subclavian line 07/14/18 Disposition: * Per ICU for vent weaning protocol * Diarrrhea: C. diff toxin 07/16/18 is negative. Now with soft/pasty bowel movements * When patient is more stable, will need cardiac workup: as per Cardiology NO HUBERT or Stress Test at this time * Bilateral UE and LE Venous Dopplers are negative for DVT * EEG showed moderate nonspecific diffuse disturbance of cortical activity in keeping with diffuse borges matter dysfunction and findings do not support a specific etiology NO family at bedside at time of exam [place] D.O. Objective - Vital Signs/Intake and Output Vital Signs (last 24 hours): Temp Pulse Resp BP Pulse Ox 99.4 F 72 10 L 105/48 L 100 07/21/18 04:00 07/21/18 07:00 07/21/18 07:00 07/21/18 07:00 07/21/18 07:00 Intake and Output: 07/21/18 07/21/18 06:59 18:59 Intake Total 1087.0 Output Total 1700 Balance -613.0 - Medications Medications: Current Medications Acetaminophen (Tylenol 325mg Tab) 650 mg PO Q6 PRN PRN Reason: Fever >100.4 F Last Admin: 07/19/18 21:04 Dose: 650 mg Albuterol/Ipratropium (Duoneb 3 Mg/0.5 Mg (3 Ml) Ud) 3 ml INH RQ6 [facility] Last Admin: 07/21/18 08:17 Dose: 3 ml Apixaban (Eliquis) 2.5 mg PO BID [facility] Last Admin: 07/20/18 17:04 Dose: 2.5 mg Aspirin (Aspirin Chewable) 81 mg GT DAILY [facility] Last Admin: 07/20/18 10:10 Dose: 81 mg Ergocalciferol (Drisdol 50,000 Intl Units Cap) 1 cap PO Q7D [facility] Last Admin: 07/18/18 12:07 Dose: 1 cap Furosemide (Lasix) 20 mg IVP BID [facility] Last Admin: 07/20/18 17:04 Dose: 20 mg Vancomycin HCl 1 gm/ Sodium (Chloride) 250 mls @ 166.7 mls/hr IVPB Q24H [facility]; Protocol Last Admin: 07/19/18 17:00 Dose: 166.7 mls/hr Dexmedetomidine HCl 200 mcg/ (Sodium Chloride) 50 mls @ 2.91 mls/hr IV TITR PRN; Protocol PRN Reason: Sedation Last Titration: 07/20/18 22:00 Dose: 0.1 mcg/kg/hr, 1.45 mls/hr Norepinephrine Bitartrate 4 mg (/ Dextrose) 254 mls @ 15.24 mls/hr IV .[id number] PRN; Protocol PRN Reason: TITRATE PER MD ORDER Last Titration: 07/21/18 04:00 Dose: 2 mcg/min, 7.62 mls/hr Meropenem 1 gm/ Sodium (Chloride) 100 mls @ 100 mls/hr IVPB Q8H [facility]; Protocol Last Admin: 07/21/18 04:01 Dose: 100 mls/hr Potassium Phosphate 15 mmole/ (Sodium Chloride) 255 mls @ 42.5 mls/hr IVPB ONCE ONE Stop: 07/21/18 13:56 Insulin Aspart (Novolog) 0 unit SC Q6 [facility]; Protocol Last Admin: 07/21/18 05:47 Dose: Not Given Insulin Glargine (Lantus) 20 unit SC Q12 [facility] Last Admin: 07/20/18 21:32 Dose: 20 u Lactobacillus Acidophilus (Bacid Acidophilus) 1 cap PO Q12H [facility] Last Admin: 07/20/18 20:47 Dose: 1 cap Methimazole (Tapazole) 10 mg PO TID [facility] Last Admin: 07/20/18 17:04 Dose: 10 mg Pantoprazole Sodium (Protonix Susp) 40 mg PO DAILY [facility] Last Admin: 07/20/18 10:12 Dose: Not Given Propranolol HCl (Inderal) 5 mg PO TID [facility] Last Admin: 07/20/18 17:04 Dose: 5 mg Rosuvastatin Calcium (Crestor) 2.5 mg PO HS [facility] Last Admin: 07/20/18 21:14 Dose: 2.5 mg - Labs Labs: 07/21/18 06:02 07/21/18 06:02 PT 17.2 SECONDS (9.7-12.2) H 07/20/18 11:18 INR 1.6 07/20/18 11:18 APTT 32 SECONDS (21-34) 07/20/18 11:18
[2018-07-21] MEDS: Lactobacillus Acidophilus 500 MU Cap PO SCH ×2 (09:00→20:43)
[2018-07-21] MEDS: Pantoprazole 40 mg Susp UD PO SCH (09:02)
[2018-07-21] MEDS: Propranolol 5 mg Tab PO SCH ×3 (09:02→18:00)
[2018-07-21] MEDS: (Lantus) Insulin Glargine, Recombinant SC SCH ×2 (09:02→21:36)
--- NOTE | 2018-07-21 10:24 | CP.PCM.CON ---
History of Present Illness - History of Present Illness History of Present Illness: General Surgery Consult for Dr. Melchor Consulted for: tracheostomy unable to obtain complete HPI/ROS due to intubation--information gleaned from chart/ICU team 52 y/o female with PMH of DM, HLD, HTN was seen and examined for possible t racheostomy on 07/21/18. Patient was admitted to ED on 07/07 for cough and vomiting, had sudden respiratory distress for which patient was intubated and she was transferred to ICU with a diagnosis of aspiration pneumonia. Patient had rapid response on 07/10 for NSTEMI, was diagnosed with left ventricle thrombus, and patient was started on blood thinners. Patient was weaned off ventilator and was extubated on 07/19 but did not tolerate, d/t coughing and emesis, and was re-intubated. Patient had another code blue on 07/20 AM but ROSC was obtained with CPR/shock, but is now on norephinepherine for hypotension. Patient has GCS of 11T, and is lethargic but able to answer yes and no. Patient denies any associated pain or any complaints at this time. PMH: DM, HLD, HTN PSH: B/L oophorectomy Family hx: Non-contributory Social hx: none Allergies: NKDA Review of Systems - Review of Systems Systems not reviewed;Unavailable: Intubated Past Patient History - Tetanus Immunizations Tetanus Immunization: Unknown - Past Medical History & Family History Past Family History: Reviewed and not pertinent - Past Social History Smoking Status: Never Smoked Alcohol: None Drugs: Denies Home Situation {Lives}: With Family - CARDIAC Hx Hypercholesterolemia: Yes - PULMONARY Hx Respiratory Disorders: No - NEUROLOGICAL Hx Neurological Disorder: No - HEENT Hx HEENT Problems: No - RENAL Hx Chronic Kidney Disease: No - ENDOCRINE/METABOLIC Hx Endocrine Disorders: Yes Hx Diabetes Mellitus Type 1: Yes - HEMATOLOGICAL/ONCOLOGICAL Hx Blood Disorders: No - INTEGUMENTARY Hx Dermatological Problems: No - MUSCULOSKELETAL/RHEUMATOLOGICAL Hx Musculoskeletal Disorders: No Hx Falls: No - GASTROINTESTINAL Hx Gastrointestinal Disorders: No - GENITOURINARY/GYNECOLOGICAL Hx Genitourinary Disorders: No - PSYCHIATRIC Hx Substance Use: No - SURGICAL HISTORY Other/Comment: removal of ovaries - ANESTHESIA Hx Anesthesia: Yes Hx Anesthesia Reactions: No Hx Malignant Hyperthermia: No Meds Allergies/Adverse Reactions: Allergies Allergy/AdvReac Type Severity Reaction Status Date / Time No Known Allergies Allergy Unverified 07/03/18 23:36 - Medications Medications: Current Medications Acetaminophen (Tylenol 325mg Tab) 650 mg PO Q6 PRN PRN Reason: Fever >100.4 F Last Admin: 07/19/18 21:04 Dose: 650 mg Albuterol/Ipratropium (Duoneb 3 Mg/0.5 Mg (3 Ml) Ud) 3 ml INH RQ6 [facility] Last Admin: 07/21/18 08:17 Dose: 3 ml Apixaban (Eliquis) 2.5 mg PO BID [facility] Last Admin: 07/21/18 09:02 Dose: 2.5 mg Aspirin (Aspirin Chewable) 81 mg GT DAILY [facility] Last Admin: 07/21/18 09:02 Dose: 81 mg Ergocalciferol (Drisdol 50,000 Intl Units Cap) 1 cap PO Q7D [facility] Last Admin: 07/18/18 12:07 Dose: 1 cap Furosemide (Lasix) 20 mg IVP BID [facility] Last Admin: 07/21/18 09:02 Dose: 20 mg Vancomycin HCl 1 gm/ Sodium (Chloride) 250 mls @ 166.7 mls/hr IVPB Q24H [facility]; Protocol Last Admin: 07/19/18 17:00 Dose: 166.7 mls/hr Dexmedetomidine HCl 200 mcg/ (Sodium Chloride) 50 mls @ 2.91 mls/hr IV TITR PRN; Protocol PRN Reason: Sedation Last Titration: 07/20/18 22:00 Dose: 0.1 mcg/kg/hr, 1.45 mls/hr Norepinephrine Bitartrate 4 mg (/ Dextrose) 254 mls @ 15.24 mls/hr IV .[id number] PRN; Protocol PRN Reason: TITRATE PER MD ORDER Last Titration: 07/21/18 04:00 Dose: 2 mcg/min, 7.62 mls/hr Meropenem 1 gm/ Sodium (Chloride) 100 mls @ 100 mls/hr IVPB Q8H [facility]; Protocol Last Admin: 07/21/18 04:01 Dose: 100 mls/hr Potassium Phosphate 15 mmole/ (Sodium Chloride) 255 mls @ 42.5 mls/hr IVPB ONCE ONE Stop: 07/21/18 13:56 Last Admin: 07/21/18 08:30 Dose: 42.5 mls/hr Potassium Chloride (Potassium Chloride 20 Meq/100 Ml) 20 meq in 100 mls @ 50 mls/hr IVPB ONCE ONE Stop: 07/21/18 11:00 Last Admin: 07/21/18 09:30 Dose: 50 mls/hr Potassium Chloride (Potassium Chloride 20 Meq/100 Ml) 20 meq in 100 mls @ 50 mls/hr IVPB ONCE ONE Stop: 07/21/18 13:02 Insulin Aspart (Novolog) 0 unit SC Q6 [facility]; Protocol Last Admin: 07/21/18 05:47 Dose: Not Given Insulin Glargine (Lantus) 20 unit SC Q12 [facility] Last Admin: 07/21/18 09:02 Dose: 20 u Lactobacillus Acidophilus (Bacid Acidophilus) 1 cap PO Q12H [facility] Last Admin: 07/21/18 09:00 Dose: 1 cap Methimazole (Tapazole) 10 mg PO TID [facility] Last Admin: 07/21/18 09:02 Dose: 10 mg Pantoprazole Sodium (Protonix Susp) 40 mg PO DAILY [facility] Last Admin: 07/21/18 09:02 Dose: 40 mg Propranolol HCl (Inderal) 5 mg PO TID [facility] Last Admin: 07/21/18 09:02 Dose: 5 mg Rosuvastatin Calcium (Crestor) 2.5 mg PO HS [facility] Last Admin: 07/20/18 21:14 Dose: 2.5 mg Physical Exam - Constitutional Appears: Non-toxic, No Acute Distress - Head Exam Head Exam: ATRAUMATIC, NORMOCEPHALIC - Eye Exam Eye Exam: Normal appearance. absent: Conjunctival injection, Scleral icterus - ENT Exam ENT Exam: Mucous Membranes Moist, Normal Oropharynx - Respiratory Exam Respiratory Exam: absent: Accessory Muscle Use, Respiratory Distress Additional comments: Patient is intubated on mechanical ventilation PRVC 450 TV, 50% FIO2, RR14, 7 PEEP - Cardiovascular Exam Cardiovascular Exam: RRR - GI/Abdominal Exam GI & Abdominal Exam: Soft. absent: Distended, Tenderness - Extremities Exam Extremities exam: Positive for: pedal pulses present. Negative for: calf tenderness, pedal edema - Neurological Exam Neurological exam: Altered (lethargic), Oriented x3 - Psychiatric Exam Psychiatric exam: Normal Affect, Normal Mood - Skin Skin Exam: Dry, Normal Color, Warm Results - Vital Signs Recent Vital Signs: Last Vital Signs Temp 99.4 F 07/21/18 04:00 Pulse 77 07/21/18 09:30 Resp 10 L 07/21/18 09:30 BP 117/55 L 07/21/18 09:30 Pulse Ox 100 07/21/18 09:30 - Labs Result Diagrams: 07/21/18 06:02 07/21/18 06:02 Labs: Laboratory Results - last 24 hr 07/20/18 07/20/18 07/20/18 11:18 11:18 11:18 WBC RBC Hgb Hct MCV MCH MCHC RDW Plt Count MPV Neut % (Auto) Lymph % (Auto) [place] % (Auto) Eos % (Auto) Baso % (Auto) Neut # (Auto) Lymph # (Auto) [place] # (Auto) Eos # (Auto) Baso # (Auto) Neutrophils % (Manual) Band Neutrophils % Lymphocytes % (Manual) Monocytes % (Manual) Eosinophils % (Manual) Platelet Estimate Polychromasia Hypochromasia (manual) Anisocytosis (manual) PT INR APTT Puncture Site pCO2 pO2 HCO3 ABG pH ABG Total CO2 ABG O2 Saturation ABG Base Excess ABG Hemoglobin ABG Carboxyhemoglobin POC ABG HHb (Measured) ABG Methemoglobin [place] Test A-a O2 Difference Respiratory Index Hgb O2 Saturation Vent Mode Mechanical Rate FiO2 Tidal Volume PEEP Sodium Potassium Chloride Carbon Dioxide Anion Gap BUN Creatinine Est GFR ( Amer) Est GFR (Non-Af Amer) POC Glucose (mg/dL) Random Glucose Lactic Acid Calcium Phosphorus Magnesium Total Bilirubin AST ALT Alkaline Phosphatase Total Protein Albumin Globulin Albumin/Globulin Ratio Procalcitonin 3.81 H Free T4 Total T3 TSH 3rd Generation < 0.02 L Vancomycin Trough 24.0 H 07/20/18 07/20/18 07/20/18 11:18 11:19 11:19 WBC RBC Hgb Hct MCV MCH MCHC RDW Plt Count MPV Neut % (Auto) Lymph % (Auto) [place] % (Auto) Eos % (Auto) Baso % (Auto) Neut # (Auto) Lymph # (Auto) [place] # (Auto) Eos # (Auto) Baso # (Auto) Neutrophils % (Manual) Band Neutrophils % Lymphocytes % (Manual) Monocytes % (Manual) Eosinophils % (Manual) Platelet Estimate Polychromasia Hypochromasia (manual) Anisocytosis (manual) PT 17.2 H INR 1.6 APTT 32 Puncture Site pCO2 pO2 HCO3 ABG pH ABG Total CO2 ABG O2 Saturation ABG Base Excess ABG Hemoglobin ABG Carboxyhemoglobin POC ABG HHb (Measured) ABG Methemoglobin [place]ev[place] Test A-a O2 Difference Respiratory Index Hgb O2 Saturation Vent Mode Mechanical Rate FiO2 Tidal Volume PEEP Sodium Potassium Chloride Carbon Dioxide Anion Gap BUN Creatinine Est GFR ( Amer) Est GFR (Non-Af Amer) POC Glucose (mg/dL) Random Glucose Lactic Acid 0.9 Calcium Phosphorus Magnesium Total Bilirubin AST ALT Alkaline Phosphatase Total Protein Albumin Globulin Albumin/Globulin Ratio Procalcitonin Free T4 2.35 H Total T3 TSH 3rd Generation Vancomycin Trough 07/20/18 07/20/18 07/20/18 11:25 11:39 12:27 WBC 14.4 H RBC 2.89 L Hgb 8.6 L Hct 26.0 L MCV 90.0 MCH 29.9 MCHC 33.2 RDW 15.7 H Plt Count 216 MPV 9.7 Neut % (Auto) 83.3 H Lymph % (Auto) 9.4 L [place] % (Auto) 5.2 Eos % (Auto) 1.5 Baso % (Auto) 0.6 Neut # (Auto) 12.0 H Lymph # (Auto) 1.4 [place] # (Auto) 0.8 Eos # (Auto) 0.2 Baso # (Auto) 0.1 Neutrophils % (Manual) 79 H Band Neutrophils % 3 H Lymphocytes % (Manual) 12 L Monocytes % (Manual) 4 Eosinophils % (Manual) 2 Platelet Estimate Normal Polychromasia Slight Hypochromasia (manual) Slight Anisocytosis (manual) Slight PT INR APTT Puncture Site pCO2 pO2 HCO3 ABG pH ABG Total CO2 ABG O2 Saturation ABG Base Excess ABG Hemoglobin ABG Carboxyhemoglobin POC ABG HHb (Measured) ABG Methemoglobin [place]ev[place] Test A-a O2 Difference Respiratory Index Hgb O2 Saturation Vent Mode Mechanical Rate FiO2 Tidal Volume PEEP Sodium 141 Potassium 4.3 Chloride 107 Carbon Dioxide 27 Anion Gap 11 BUN 27 H Creatinine 1.1 Est GFR ( Amer) > 60 Est GFR (Non-Af Amer) 52 POC Glucose (mg/dL) 200 H Random Glucose 177 H Lactic Acid Calcium 8.1 L Phosphorus 2.9 Magnesium 2.2 Total Bilirubin 0.8 AST 28 ALT 42 Alkaline Phosphatase 100 Total Protein 4.9 L Albumin 2.1 L Globulin 2.7 Albumin/Globulin Ratio 0.8 L Procalcitonin Free T4 Total T3 0.857 L TSH 3rd Generation Vancomycin Trough 07/20/18 07/21/18 07/21/18 17:50 00:09 05:07 WBC RBC Hgb Hct MCV MCH MCHC RDW Plt Count MPV Neut % (Auto) Lymph % (Auto) [place] % (Auto) Eos % (Auto) Baso % (Auto) Neut # (Auto) Lymph # (Auto) [place] # (Auto) Eos # (Auto) Baso # (Auto) Neutrophils % (Manual) Band Neutrophils % Lymphocytes % (Manual) Monocytes % (Manual) Eosinophils % (Manual) Platelet Estimate Polychromasia Hypochromasia (manual) Anisocytosis (manual) PT INR APTT Puncture Site L rad pCO2 34 L pO2 153 H HCO3 27.5 ABG pH 7.50 H ABG Total CO2 27.5 ABG O2 Saturation 100.4 H ABG Base Excess 3.2 H ABG Hemoglobin 7.7 L ABG Carboxyhemoglobin 2.3 H POC ABG HHb (Measured) -0.4 L ABG Methemoglobin 0.3 [place] Test Pos A-a O2 Difference 161.0 Respiratory Index 1.1 Hgb O2 Saturation 97.9 Vent Mode Prvc Mechanical Rate 10 FiO2 50.0 Tidal Volume 450 PEEP 7 Sodium Potassium Chloride Carbon Dioxide Anion Gap BUN Creatinine Est GFR ( Amer) Est GFR (Non-Af Amer) POC Glucose (mg/dL) 171 H 79 Random Glucose Lactic Acid Calcium Phosphorus Magnesium Total Bilirubin AST ALT Alkaline Phosphatase Total Protein Albumin Globulin Albumin/Globulin Ratio Procalcitonin Free T4 Total T3 TSH 3rd Generation Vancomycin Trough 07/21/18 07/21/18 07/21/18 05:08 06:02 06:02 WBC 7.0 D RBC 2.62 L Hgb 8.0 L Hct 23.5 L MCV 89.5 MCH 30.6 MCHC 34.2 RDW 15.3 H Plt Count 152 MPV 9.7 Neut % (Auto) 73.7 Lymph % (Auto) 15.6 L [place] % (Auto) 7.5 Eos % (Auto) 2.9 Baso % (Auto) 0.3 Neut # (Auto) 5.1 Lymph # (Auto) 1.1 [place] # (Auto) 0.5 Eos # (Auto) 0.2 Baso # (Auto) 0.0 Neutrophils % (Manual) Band Neutrophils % Lymphocytes % (Manual) Monocytes % (Manual) Eosinophils % (Manual) Platelet Estimate Polychromasia Hypochromasia (manual) Anisocytosis (manual) PT INR APTT Puncture Site pCO2 pO2 HCO3 ABG pH ABG Total CO2 ABG O2 Saturation ABG Base Excess ABG Hemoglobin ABG Carboxyhemoglobin POC ABG HHb (Measured) ABG Methemoglobin [place] Test A-a O2 Difference Respiratory Index Hgb O2 Saturation Vent Mode Mechanical Rate FiO2 Tidal Volume PEEP Sodium 140 Potassium 3.2 L Chloride 107 Carbon Dioxide 27 Anion Gap 9 L BUN 25 H Creatinine 1.1 Est GFR ( Amer) > 60 Est GFR (Non-Af Amer) 52 POC Glucose (mg/dL) 119 H Random Glucose 105 Lactic Acid Calcium 8.2 L Phosphorus 2.4 L Magnesium 2.1 Total Bilirubin 0.6 AST 30 ALT 43 Alkaline Phosphatase 188 H D Total Protein 5.2 L Albumin 2.4 L Globulin 2.8 Albumin/Globulin Ratio 0.9 L Procalcitonin Free T4 Total T3 TSH 3rd Generation Vancomycin Trough Assessment & Plan - Assessment and Plan (Free Text) Assessment: 52 y/o female with respiratory distress on prolonged mechanical ventilation, unable to be weaned Plan: -Will plan for tracheostomy on Tuesday if fails to be weaned off vent. -Recinnebd hold eliquis and start on Heparin Drip in preparation for OR -Wean off pressors prior to OR -recommend cardiac risk evaluation/optimization prior to OR D/W Dr. Ruiz Rodriguez, PGY2
--- NOTE | 2018-07-21 10:51 | RAD ---
Date of service: 07/20/2018 HISTORY: change in status COMPARISON: Comparison chest 07/19/2018 FINDINGS: In situ ETT, tip of which lies approximately 3.9 cm above key. In situ NGT, tip of which has not been included on this film though distal aspect does lie well below EG junction. Redemonstrated is in situ right-sided central line. LUNGS: Mild central pulmonary vascular congestive changes with bilateral atelectasis and/or infiltrates and large right-sided layering effusion and small right-sided effusion.. PLEURA: No pneumothorax apparent. CARDIOVASCULAR: Minimal atherosclerotic calcification present Normal. OSSEOUS STRUCTURES: No significant abnormalities. VISUALIZED UPPER ABDOMEN: Normal. OTHER FINDINGS: None. IMPRESSION: Support lines and tubes as above. Mild central pulmonary vascular congestive changes with bilateral atelectasis and/or infiltrates and large right-sided layering effusion and small right-sided effusion..
[2018-07-21] MEDS ORDERED: Potassium & Sodium Phosphate PO STA ×2 (10:54→14:03)
--- NOTE | 2018-07-21 11:17 | CP.CCUPN ---
<Merlin Oshea - Last Filed: 07/21/18 15:17> CCU Objective - Vital Signs / Intake & Output Vital Signs (Last 4 hours): Vital Signs Pulse Resp BP Pulse Ox 07/21/18 13:00 78 18 101/59 L 100 Intake and Output (Last 8hrs): Intake & Output 07/21/18 07/21/18 07/21/18 06:59 14:59 22:59 Intake Total 761.1 146.4 Output Total 900 Balance -138.9 146.4 Weight 125 lb Intake: IV 160 40 Intake, IV Amount 241.1 16.4 Right Distal Port 12.6 1.4 Subclavian Right Hand 100 Right Medial Port 128.5 15.0 Subclavian Tube Feeding 360 90 Output: Urine 900 Urine, Voided 900 - Medications Active Medications: Active Medications Generic Name Dose Route Start Last Admin Trade Name Freq PRN Reason Stop Dose Admin Acetaminophen 650 mg 07/12/18 15:57 07/19/18 21:04 Tylenol 325mg Tab PO 650 mg Q6 PRN Administration Fever >100.4 F Albuterol/Ipratropium 3 ml 07/14/18 20:00 07/21/18 13:19 Duoneb 3 Mg/0.5 Mg (3 Ml) Ud INH 3 ml RQ6 MANOLO Administration Aspirin 81 mg 07/17/18 10:00 07/21/18 09:02 Aspirin Chewable GT 81 mg DAILY MANOLO Administration Ergocalciferol 1 cap 07/11/18 12:45 07/18/18 12:07 Drisdol 50,000 Intl Units Cap PO 1 cap Q7D MANOLO Administration Furosemide 20 mg 07/17/18 18:00 07/21/18 09:02 Lasix IVP 20 mg BID MANOLO Administration Vancomycin HCl 1 gm/ Sodium 250 mls @ 166.7 mls/hr 07/14/18 18:00 07/19/18 17:00 Chloride IVPB 166.7 mls/hr Q24H MANOLO Administration Protocol Dexmedetomidine HCl 200 mcg/ 50 mls @ 2.91 mls/hr 07/15/18 19:55 07/20/18 22: 00 Sodium Chloride IV 0.1 mcg/kg/hr TITR PRN 1.45 mls/hr Sedation Titration Protocol 0.2 MCG/KG/HR Norepinephrine Bitartrate 4 mg 254 mls @ 15.24 mls/hr 07/20/18 01:13 07/21/18 13:00 / Dextrose IV 2 mcg/min .[id number] PRN 7.62 mls/hr TITRATE PER MD ORDER Administration Protocol 4 MCG/MIN Meropenem 1 gm/ Sodium 100 mls @ 100 mls/hr 07/20/18 11:45 07/21/18 12:00 Chloride IVPB 100 mls/hr Q8H MANOLO Administration Protocol Heparin Sodium/Sodium Chloride 25,000 units in 250 mls @ 6.804 mls/hr 07/21/18 10:19 Heparin 02418 Units/250ml 1/2 Normal Saline IV .Q24H PRN PROTOCOL Protocol 12 UNITS/KG/HR Insulin Aspart 0 unit 07/11/18 08:28 07/21/18 12:00 Novolog SC Not Given Q6 MANOLO Protocol Insulin Glargine 20 unit 07/17/18 09:46 07/21/18 09:02 Lantus SC 20 u Q12 MANOLO Administration Lactobacillus Acidophilus 1 cap 07/08/18 20:00 07/21/18 09:00 Bacid Acidophilus PO 1 cap Q12H MANOLO Administration Methimazole 10 mg 07/11/18 10:00 07/21/18 14:19 Tapazole PO 10 mg TID MANOLO Administration Pantoprazole Sodium 40 mg 07/20/18 10:00 07/21/18 09:02 Protonix Susp PO 40 mg DAILY MANOLO Administration Propranolol HCl 5 mg 07/16/18 10:00 07/21/18 14:19 Inderal PO 5 mg TID MANOLO Administration Rosuvastatin Calcium 2.5 mg 07/13/18 22:00 07/20/18 21:14 Crestor PO 2.5 mg HS MANOLO Administration - Patient Studies Lab Studies: Microbiology Studies 07/20/18 11:18 Blood Culture - Preliminary Blood-Thru Central Line NO GROWTH AFTER 24 HOURS 07/20/18 11:18 Blood Culture - Preliminary Blood-Thru Central Line NO GROWTH AFTER 24 HOURS 07/20/18 11:19 Urine Culture - Final Urine No Growth (<1,000 CFU/ML) 07/20/18 20:35 Gram Stain - Final Trachasp Lab Studies 07/21/18 07/21/18 07/21/18 Range/Units 14:58 11:37 06:02 WBC (4.8-10.8) K/uL RBC (3.80-5.20) Mil/uL Hgb (11.0-16.0) g/dL Hct (34.0-47.0) % MCV (81.0-99.0) fL MCH (27.0-31.0) pg MCHC (33.0-37.0) g/dL RDW (11.5-14.5) % Plt Count (130-400) K/uL MPV (7.2-11.7) fL Neut % (Auto) (50.0-75.0) % Lymph % (Auto) (20.0-40.0) % [place] % (Auto) (0.0-10.0) % Eos % (Auto) (0.0-4.0) % Baso % (Auto) (0.0-2.0) % Neut # (Auto) (1.8-7.0) K/uL Lymph # (Auto) (1.0-4.3) K/uL [place] # (Auto) (0.0-0.8) K/uL Eos # (Auto) (0.0-0.7) K/uL Baso # (Auto) (0.0-0.2) K/uL PT 19.1 H (9.7-12.2) SECONDS INR 1.7 APTT 34 (21-34) SECONDS Puncture Site pCO2 (35-45) mm/Hg pO2 (80-100) mm/Hg HCO3 (21-28) mmol/L ABG pH (7.35-7.45) ABG Total CO2 (22-28) mmol/L ABG O2 Saturation (95-98) % ABG Base Excess (-2.0-3.0) mmol/L ABG Hemoglobin (11.7-17.4) g/dL ABG Carboxyhemoglobin (0.5-1.5) % POC ABG HHb (Measured) (0.0-5.0) % ABG Methemoglobin (0.0-3.0) % [place] Test A-a O2 Difference mm/Hg Respiratory Index Hgb O2 Saturation (95.0-98.0) % Vent Mode Mechanical Rate FiO2 % Tidal Volume PEEP Sodium 140 (132-148) mmol/L Potassium 3.2 L (3.6-5.2) mmol/L Chloride 107 (98-107) mmol/L Carbon Dioxide 27 (22-30) mmol/L Anion Gap 9 L (10-20) BUN 25 H (7-17) mg/dL Creatinine 1.1 (0.7-1.2) mg/dL Est GFR ( Amer) > 60 Est GFR (Non-Af Amer) 52 POC Glucose (mg/dL) 128 H (65-110) mg/dL Random Glucose 105 (65-105) mg/dL Calcium 8.2 L (8.6-10.4) mg/dl Phosphorus 2.4 L (2.5-4.5) mg/dL Magnesium 2.1 (1.6-2.3) mg/dL Total Bilirubin 0.6 (0.2-1.3) mg/dL AST 30 (14-36) U/L ALT 43 (9-52) U/L Alkaline Phosphatase 188 H D (38-126) U/L Total Protein 5.2 L (6.3-8.3) g/dL Albumin 2.4 L (3.5-5.0) g/dL Globulin 2.8 (2.2-3.9) gm/dL Albumin/Globulin Ratio 0.9 L (1.0-2.1) Procalcitonin (0.19-0.49) NG/ML 07/21/18 07/21/18 07/21/18 Range/Units 06:02 05:08 05:07 WBC 7.0 D (4.8-10.8) K/uL RBC 2.62 L (3.80-5.20) Mil/uL Hgb 8.0 L (11.0-16.0) g/dL Hct 23.5 L (34.0-47.0) % MCV 89.5 (81.0-99.0) fL MCH 30.6 (27.0-31.0) pg MCHC 34.2 (33.0-37.0) g/dL RDW 15.3 H (11.5-14.5) % Plt Count 152 (130-400) K/uL MPV 9.7 (7.2-11.7) fL Neut % (Auto) 73.7 (50.0-75.0) % Lymph % (Auto) 15.6 L (20.0-40.0) % [place] % (Auto) 7.5 (0.0-10.0) % Eos % (Auto) 2.9 (0.0-4.0) % Baso % (Auto) 0.3 (0.0-2.0) % Neut # (Auto) 5.1 (1.8-7.0) K/uL Lymph # (Auto) 1.1 (1.0-4.3) K/uL [place] # (Auto) 0.5 (0.0-0.8) K/uL Eos # (Auto) 0.2 (0.0-0.7) K/uL Baso # (Auto) 0.0 (0.0-0.2) K/uL PT (9.7-12.2) SECONDS INR APTT (21-34) SECONDS Puncture Site L rad pCO2 34 L (35-45) mm/Hg pO2 153 H (80-100) mm/Hg HCO3 27.5 (21-28) mmol/L ABG pH 7.50 H (7.35-7.45) ABG Total CO2 27.5 (22-28) mmol/L ABG O2 Saturation 100.4 H (95-98) % ABG Base Excess 3.2 H (-2.0-3.0) mmol/L ABG Hemoglobin 7.7 L (11.7-17.4) g/dL ABG Carboxyhemoglobin 2.3 H (0.5-1.5) % POC ABG HHb (Measured) -0.4 L (0.0-5.0) % ABG Methemoglobin 0.3 (0.0-3.0) % [place] Test Pos A-a O2 Difference 161.0 mm/Hg Respiratory Index 1.1 Hgb O2 Saturation 97.9 (95.0-98.0) % Vent Mode Prvc Mechanical Rate 10 FiO2 50.0 % Tidal Volume 450 PEEP 7 Sodium (132-148) mmol/L Potassium (3.6-5.2) mmol/L Chloride (98-107) mmol/L Carbon Dioxide (22-30) mmol/L Anion Gap (10-20) BUN (7-17) mg/dL Creatinine (0.7-1.2) mg/dL Est GFR ( Amer) Est GFR (Non-Af Amer) POC Glucose (mg/dL) 119 H (65-110) mg/dL Random Glucose (65-105) mg/dL Calcium (8.6-10.4) mg/dl Phosphorus (2.5-4.5) mg/dL Magnesium (1.6-2.3) mg/dL Total Bilirubin (0.2-1.3) mg/dL AST (14-36) U/L ALT (9-52) U/L Alkaline Phosphatase (38-126) U/L Total Protein (6.3-8.3) g/dL Albumin (3.5-5.0) g/dL Globulin (2.2-3.9) gm/dL Albumin/Globulin Ratio (1.0-2.1) Procalcitonin (0.19-0.49) NG/ML 07/21/18 07/20/18 07/20/18 Range/Units 00:09 17:50 11:25 WBC (4.8-10.8) K/uL RBC (3.80-5.20) Mil/uL Hgb (11.0-16.0) g/dL Hct (34.0-47.0) % MCV (81.0-99.0) fL MCH (27.0-31.0) pg MCHC (33.0-37.0) g/dL RDW (11.5-14.5) % Plt Count (130-400) K/uL MPV (7.2-11.7) fL Neut % (Auto) (50.0-75.0) % Lymph % (Auto) (20.0-40.0) % [place] % (Auto) (0.0-10.0) % Eos % (Auto) (0.0-4.0) % Baso % (Auto) (0.0-2.0) % Neut # (Auto) (1.8-7.0) K/uL Lymph # (Auto) (1.0-4.3) K/uL [place] # (Auto) (0.0-0.8) K/uL Eos # (Auto) (0.0-0.7) K/uL Baso # (Auto) (0.0-0.2) K/uL PT (9.7-12.2) SECONDS INR APTT (21-34) SECONDS Puncture Site pCO2 (35-45) mm/Hg pO2 (80-100) mm/Hg HCO3 (21-28) mmol/L ABG pH (7.35-7.45) ABG Total CO2 (22-28) mmol/L ABG O2 Saturation (95-98) % ABG Base Excess (-2.0-3.0) mmol/L ABG Hemoglobin (11.7-17.4) g/dL ABG Carboxyhemoglobin (0.5-1.5) % POC ABG HHb (Measured) (0.0-5.0) % ABG Methemoglobin (0.0-3.0) % [place] Test A-a O2 Difference mm/Hg Respiratory Index Hgb O2 Saturation (95.0-98.0) % Vent Mode Mechanical Rate FiO2 % Tidal Volume PEEP Sodium (132-148) mmol/L Potassium (3.6-5.2) mmol/L Chloride (98-107) mmol/L Carbon Dioxide (22-30) mmol/L Anion Gap (10-20) BUN (7-17) mg/dL Creatinine (0.7-1.2) mg/dL Est GFR ( Amer) Est GFR (Non-Af Amer) POC Glucose (mg/dL) 79 171 H 200 H (65-110) mg/dL Random Glucose (65-105) mg/dL Calcium (8.6-10.4) mg/dl Phosphorus (2.5-4.5) mg/dL Magnesium (1.6-2.3) mg/dL Total Bilirubin (0.2-1.3) mg/dL AST (14-36) U/L ALT (9-52) U/L Alkaline Phosphatase (38-126) U/L Total Protein (6.3-8.3) g/dL Albumin (3.5-5.0) g/dL Globulin (2.2-3.9) gm/dL Albumin/Globulin Ratio (1.0-2.1) Procalcitonin (0.19-0.49) NG/ML 07/20/ Range/Units 11:18 WBC (4.8-10.8) K/uL RBC (3.80-5.20) Mil/uL Hgb (11.0-16.0) g/dL Hct (34.0-47.0) % MCV (81.0-99.0) fL MCH (27.0-31.0) pg MCHC (33.0-37.0) g/dL RDW (11.5-14.5) % Plt Count (130-400) K/uL MPV (7.2-11.7) fL Neut % (Auto) (50.0-75.0) % Lymph % (Auto) (20.0-40.0) % [place] % (Auto) (0.0-10.0) % Eos % (Auto) (0.0-4.0) % Baso % (Auto) (0.0-2.0) % Neut # (Auto) (1.8-7.0) K/uL Lymph # (Auto) (1.0-4.3) K/uL [place] # (Auto) (0.0-0.8) K/uL Eos # (Auto) (0.0-0.7) K/uL Baso # (Auto) (0.0-0.2) K/uL PT (9.7-12.2) SECONDS INR APTT (21-34) SECONDS Puncture Site pCO2 (35-45) mm/Hg pO2 (80-100) mm/Hg HCO3 (21-28) mmol/L ABG pH (7.35-7.45) ABG Total CO2 (22-28) mmol/L ABG O2 Saturation (95-98) % ABG Base Excess (-2.0-3.0) mmol/L ABG Hemoglobin (11.7-17.4) g/dL ABG Carboxyhemoglobin (0.5-1.5) % POC ABG HHb (Measured) (0.0-5.0) % ABG Methemoglobin (0.0-3.0) % [place] Test A-a O2 Difference mm/Hg Respiratory Index Hgb O2 Saturation (95.0-98.0) % Vent Mode Mechanical Rate FiO2 % Tidal Volume PEEP Sodium (132-148) mmol/L Potassium (3.6-5.2) mmol/L Chloride (98-107) mmol/L Carbon Dioxide (22-30) mmol/L Anion Gap (10-20) BUN (7-17) mg/dL Creatinine (0.7-1.2) mg/dL Est GFR ( Amer) Est GFR (Non-Af Amer) POC Glucose (mg/dL) (65-110) mg/dL Random Glucose (65-105) mg/dL Calcium (8.6-10.4) mg/dl Phosphorus (2.5-4.5) mg/dL Magnesium (1.6-2.3) mg/dL Total Bilirubin (0.2-1.3) mg/dL AST (14-36) U/L ALT (9-52) U/L Alkaline Phosphatase (38-126) U/L Total Protein (6.3-8.3) g/dL Albumin (3.5-5.0) g/dL Globulin (2.2-3.9) gm/dL Albumin/Globulin Ratio (1.0-2.1) Procalcitonin 3.81 H (0.19-0.49) NG/ML Laboratory Results - last 24 hr 07/20/18 07/20/18 07/20/18 11:18 11:25 17:50 WBC RBC Hgb Hct MCV MCH MCHC RDW Plt Count MPV Neut % (Auto) Lymph % (Auto) [place] % (Auto) Eos % (Auto) Baso % (Auto) Neut # (Auto) Lymph # (Auto) [place] # (Auto) Eos # (Auto) Baso # (Auto) PT INR APTT Puncture Site pCO2 pO2 HCO3 ABG pH ABG Total CO2 ABG O2 Saturation ABG Base Excess ABG Hemoglobin ABG Carboxyhemoglobin POC ABG HHb (Measured) ABG Methemoglobin [place] Test A-a O2 Difference Respiratory Index Hgb O2 Saturation Vent Mode Mechanical Rate FiO2 Tidal Volume PEEP Sodium Potassium Chloride Carbon Dioxide Anion Gap BUN Creatinine Est GFR ( Amer) Est GFR (Non-Af Amer) POC Glucose (mg/dL) 200 H 171 H Random Glucose Calcium Phosphorus Magnesium Total Bilirubin AST ALT Alkaline Phosphatase Total Protein Albumin Globulin Albumin/Globulin Ratio Procalcitonin 3.81 H 07/21/18 07/21/18 07/21/18 00:09 05:07 05:08 WBC RBC Hgb Hct MCV MCH MCHC RDW Plt Count MPV Neut % (Auto) Lymph % (Auto) [place] % (Auto) Eos % (Auto) Baso % (Auto) Neut # (Auto) Lymph # (Auto) [place] # (Auto) Eos # (Auto) Baso # (Auto) PT INR APTT Puncture Site L rad pCO2 34 L pO2 153 H HCO3 27.5 ABG pH 7.50 H ABG Total CO2 27.5 ABG O2 Saturation 100.4 H ABG Base Excess 3.2 H ABG Hemoglobin 7.7 L ABG Carboxyhemoglobin 2.3 H POC ABG HHb (Measured) -0.4 L ABG Methemoglobin 0.3 [place] Test Pos A-a O2 Difference 161.0 Respiratory Index 1.1 Hgb O2 Saturation 97.9 Vent Mode Prvc Mechanical Rate 10 FiO2 50.0 Tidal Volume 450 PEEP 7 Sodium Potassium Chloride Carbon Dioxide Anion Gap BUN Creatinine Est GFR ( Amer) Est GFR (Non-Af Amer) POC Glucose (mg/dL) 79 119 H Random Glucose Calcium Phosphorus Magnesium Total Bilirubin AST ALT Alkaline Phosphatase Total Protein Albumin Globulin Albumin/Globulin Ratio Procalcitonin 07/21/18 07/21/18 07/21/18 06:02 06:02 11:37 WBC 7.0 D RBC 2.62 L Hgb 8.0 L Hct 23.5 L MCV 89.5 MCH 30.6 MCHC 34.2 RDW 15.3 H Plt Count 152 MPV 9.7 Neut % (Auto) 73.7 Lymph % (Auto) 15.6 L [place] % (Auto) 7.5 Eos % (Auto) 2.9 Baso % (Auto) 0.3 Neut # (Auto) 5.1 Lymph # (Auto) 1.1 [place] # (Auto) 0.5 Eos # (Auto) 0.2 Baso # (Auto) 0.0 PT INR APTT Puncture Site pCO2 pO2 HCO3 ABG pH ABG Total CO2 ABG O2 Saturation ABG Base Excess ABG Hemoglobin ABG Carboxyhemoglobin POC ABG HHb (Measured) ABG Methemoglobin [place] Test A-a O2 Difference Respiratory Index Hgb O2 Saturation Vent Mode Mechanical Rate FiO2 Tidal Volume PEEP Sodium 140 Potassium 3.2 L Chloride 107 Carbon Dioxide 27 Anion Gap 9 L BUN 25 H Creatinine 1.1 Est GFR ( Amer) > 60 Est GFR (Non-Af Amer) 52 POC Glucose (mg/dL) 128 H Random Glucose 105 Calcium 8.2 L Phosphorus 2.4 L Magnesium 2.1 Total Bilirubin 0.6 AST 30 ALT 43 Alkaline Phosphatase 188 H D Total Protein 5.2 L Albumin 2.4 L Globulin 2.8 Albumin/Globulin Ratio 0.9 L Procalcitonin 07/21/18 14:58 WBC RBC Hgb Hct MCV MCH MCHC RDW Plt Count MPV Neut % (Auto) Lymph % (Auto) [place] % (Auto) Eos % (Auto) Baso % (Auto) Neut # (Auto) Lymph # (Auto) [place] # (Auto) Eos # (Auto) Baso # (Auto) PT 19.1 H INR 1.7 APTT 34 Puncture Site pCO2 pO2 HCO3 ABG pH ABG Total CO2 ABG O2 Saturation ABG Base Excess ABG Hemoglobin ABG Carboxyhemoglobin POC ABG HHb (Measured) ABG Methemoglobin [place] Test A-a O2 Difference Respiratory Index Hgb O2 Saturation Vent Mode Mechanical Rate FiO2 Tidal Volume PEEP Sodium Potassium Chloride Carbon Dioxide Anion Gap BUN Creatinine Est GFR ( Amer) Est GFR (Non-Af Amer) POC Glucose (mg/dL) Random Glucose Calcium Phosphorus Magnesium Total Bilirubin AST ALT Alkaline Phosphatase Total Protein Albumin Globulin Albumin/Globulin Ratio Procalcitonin Assessment/Plan (1) Aspiration pneumonia Current Visit: Yes Status: Acute Attending/Attestation - Attestation I have personally seen and examined this patient.: Yes I have fully participated in the care of the patient.: Yes I have reviewed all pertinent clinical information: Yes Notes (Text): 07/21/18 15:17 I have seen and examined the patient. Medical records, lab studies, and imaging were reviewed by me and a management plan was formulated on multidisciplinary rounds with resident Dr. Hinkle. I agree with their documented assessment and plan. Patient is tolerating PS trilas, but is incredibly weak. We will have her trach placed, and then wean her off of vent using early mobilization. Critical Care Time 35 minutes. Multi-disciplinary rounds were performed with house staff, nursing, speech therapy, respiratory therapy, pharmacy and nutrition with integrated input from the primary team/attending and other consulting services. The documented time is cumulative and includes review of patient data/exams/labs/chart review and examination of the patient on rounds and throughout the day; time is exclusive of any procedures or teaching time. <Anabel Hinkle L - Last Filed: 10/19/18 17:19> CCU Subjective - Physician Review Subjective (Free Text): Resident Critical Care Progress Note Patient examined at bedside. Alert, follows commands but appears very weak. Tolerating cpap trial today so far. Discussed possibility of trach placement with who expresses understanding. Plan for trach placement on Tuesday. Critical Care Time Spent (in minutes): 35 CCU Objective - Vital Signs / Intake & Output Vital Signs (Last 4 hours): Vital Signs Pulse Resp BP Pulse Ox 07/21/18 09:30 77 10 L 117/55 L 100 07/21/18 09:02 121/56 L 07/21/18 09:00 84 15 121/56 L 100 07/21/18 08:30 85 15 118/54 L 100 07/21/18 08:00 74 14 116/54 L 100 07/21/18 07:30 76 13 104/49 L 100 Intake and Output (Last 8hrs): Intake & Output 07/20/18 07/21/18 07/21/18 22:59 06:59 14:59 Intake Total 816.5 761.1 106.4 Output Total 800 900 Balance 16.5 -138.9 106.4 Weight 125 lb Intake: IV 331 160 Intake, IV Amount 250.5 241.1 16.4 Right Distal Port 21.7 12.6 1.4 Subclavian Right Hand 100 Right Medial Port 228.8 128.5 15.0 Subclavian Tube Feeding 235 360 90 Output: Urine 800 900 Urine, Voided 800 900 Other: # Bowel Movements 1 - Physical Exam Head: Positive for: Atraumatic, Normocephalic Pupils: Positive for: PERRL. Negative for: Sluggish, Pinpoint Extroacular Muscles: Positive for: EOMI. Negative for: Gaze Palsy Conjunctiva: Positive for: Normal. Negative for: Injected, Icteric Mouth: Positive for: Moist Mucous Membranes Nose (External): Positive for: Atraumatic. Negative for: Abrasion, Contusion, Laceration Nose (Internal): Positive for: No Active Bleeding. Negative for: Epistaxis Neck: Positive for: Normal Range of Motion, Trachea Midline. Negative for: JVD Respiratory/Chest: Positive for: Good Air Exchange, Rhonchi (mild ronchi in bilateral bases), Other (intubated and ventilated). Negative for: Wheezes, Rales Cardiovascular: Positive for: Normal S1, S2, Peripheal Pulses Present, Tachycardic. Negative for: Regular Rate and Rhythm Abdomen: Positive for: Normal Bowel Sounds. Negative for: Tenderness, Distention, Rebound, Guarding Upper Extremity: Positive for: Normal Inspection, NORMAL PULSES. Negative for: Cyanosis, Edema Lower Extremity: Positive for: Normal Inspection. Negative for: Edema, CALF TENDERNESS Skin: Positive for: Warm, Dry, Normal Color Psychiatric: Positive for: Alert - Medications Active Medications: Active Medications Generic Name Dose Route Start Last Admin Trade Name Freq PRN Reason Stop Dose Admin Acetaminophen 650 mg 07/12/18 15:57 07/19/18 21:04 Tylenol 325mg Tab PO 650 mg Q6 PRN Administration Fever >100.4 F Albuterol/Ipratropium 3 ml 07/14/18 20:00 07/21/18 08:17 Duoneb 3 Mg/0.5 Mg (3 Ml) Ud INH 3 ml RQ6 MANOLO Administration Aspirin 81 mg 07/17/18 10:00 07/21/18 09:02 Aspirin Chewable GT 81 mg DAILY MANOLO Administration Ergocalciferol 1 cap 07/11/18 12:45 07/18/18 12:07 Drisdol 50,000 Intl Units Cap PO 1 cap Q7D MANOLO Administration Furosemide 20 mg 07/17/18 18:00 07/21/18 09:02 Lasix IVP 20 mg BID MANOLO Administration Vancomycin HCl 1 gm/ Sodium 250 mls @ 166.7 mls/hr 07/14/18 18:00 07/19/18 17:00 Chloride IVPB 166.7 mls/hr Q24H MANOLO Administration Protocol Dexmedetomidine HCl 200 mcg/ 50 mls @ 2.91 mls/hr 07/15/18 19:55 07/20/18 22:00 Sodium Chloride IV 0.1 mcg/kg/hr TITR PRN 1.45 mls/hr Sedation Titration Protocol 0.2 MCG/KG/HR Norepinephrine Bitartrate 4 mg 254 mls @ 15.24 mls/hr 07/20/18 01:13 07/21/18 04:00 / Dextrose IV 2 mcg/min .[id number] PRN 7.62 mls/hr TITRATE PER MD ORDER Titration Protocol 4 MCG/MIN Meropenem 1 gm/ Sodium 100 mls @ 100 mls/hr 07/20/18 11:45 07/21/18 04:01 Chloride IVPB 100 mls/hr Q8H MANOLO Administration Protocol Potassium Phosphate 15 mmole/ 255 mls @ 42.5 mls/hr 07/21/18 07:57 07/21/18 08:30 Sodium Chloride IVPB 07/21/18 13:56 42.5 mls/hr ONCE ONE Administration Potassium Chloride 20 meq in 100 mls @ 50 mls/hr 07/21/18 11:03 Potassium Chloride 20 Meq/100 Ml IVPB 07/21/18 13:02 ONCE ONE Heparin Sodium/Sodium Chloride 25,000 units in 250 mls @ 6.804 mls/hr 07/21/18 10:19 Heparin 33950 Units/250ml 1/2 Normal Saline IV .Q24H PRN PROTOCOL Protocol 12 UNITS/KG/HR Insulin Aspart 0 unit 07/11/18 08:28 07/21/18 05:47 Novolog SC Not Given Q6 MANOLO Protocol Insulin Glargine 20 unit 07/17/18 09:46 07/21/18 09:02 Lantus SC 20 u Q12 MANOLO Administration Lactobacillus Acidophilus 1 cap 07/08/18 20:00 07/21/18 09:00 Bacid Acidophilus PO 1 cap Q12H MANOLO Administration Methimazole 10 mg 07/11/18 10:00 07/21/18 09:02 Tapazole PO 10 mg TID MANOLO Administration Pantoprazole Sodium 40 mg 07/20/18 10:00 07/21/18 09:02 Protonix Susp PO 40 mg DAILY MANOLO Administration Propranolol HCl 5 mg 07/16/18 10:00 07/21/18 09:02 Inderal PO 5 mg TID MANOLO Administration Rosuvastatin Calcium 2.5 mg 07/13/18 22:00 07/20/18 21:14 Crestor PO 2.5 mg HS MANOLO Administration - Patient Studies Lab Studies: Microbiology Studies 07/20/18 11:19 Urine Culture - Final Urine No Growth (<1,000 CFU/ML) 07/20/18 20:35 Gram Stain - Final Trachasp Lab Studies 07/21/18 07/21/18 07/21/18 Range/Units 06:02 06:02 05:08 WBC 7.0 D (4.8-10.8) K/uL RBC 2.62 L (3.80-5.20) Mil/uL Hgb 8.0 L (11.0-16.0) g/dL Hct 23.5 L (34.0-47.0) % MCV 89.5 (81.0-99.0) fL MCH 30.6 (27.0-31.0) pg MCHC 34.2 (33.0-37.0) g/dL RDW 15.3 H (11.5-14.5) % Plt Count 152 (130-400) K/uL MPV 9.7 (7.2-11.7) fL Neut % (Auto) 73.7 (50.0-75.0) % Lymph % (Auto) 15.6 L (20.0-40.0) % [place] % (Auto) 7.5 (0.0-10.0) % Eos % (Auto) 2.9 (0.0-4.0) % Baso % (Auto) 0.3 (0.0-2.0) % Neut # (Auto) 5.1 (1.8-7.0) K/uL Lymph # (Auto) 1.1 (1.0-4.3) K/uL [place] # (Auto) 0.5 (0.0-0.8) K/uL Eos # (Auto) 0.2 (0.0-0.7) K/uL Baso # (Auto) 0.0 (0.0-0.2) K/uL Neutrophils % (Manual) (50-75) % Band Neutrophils % (0-2) % Lymphocytes % (Manual) (20-40) % Monocytes % (Manual) (0-10) % Eosinophils % (Manual) (0-4) % Platelet Estimate (NORMAL) Polychromasia Hypochromasia (manual) Anisocytosis (manual) PT (9.7-12.2) SECONDS INR APTT (21-34) SECONDS Puncture Site pCO2 (35-45) mm/Hg pO2 (80-100) mm/Hg HCO3 (21-28) mmol/L ABG pH (7.35-7.45) ABG Total CO2 (22-28) mmol/L ABG O2 Saturation (95-98) % ABG Base Excess (-2.0-3.0) mmol/L ABG Hemoglobin (11.7-17.4) g/dL ABG Carboxyhemoglobin (0.5-1.5) % POC ABG HHb (Measured) (0.0-5.0) % ABG Methemoglobin (0.0-3.0) % [place] Test A-a O2 Difference mm/Hg Respiratory Index Hgb O2 Saturation (95.0-98.0) % Vent Mode Mechanical Rate FiO2 % Tidal Volume PEEP Sodium 140 (132-148) mmol/L Potassium 3.2 L (3.6-5.2) mmol/L Chloride 107 (98-107) mmol/L Carbon Dioxide 27 (22-30) mmol/L Anion Gap 9 L (10-20) BUN 25 H (7-17) mg/dL Creatinine 1.1 (0.7-1.2) mg/dL Est GFR ( Amer) > 60 Est GFR (Non-Af Amer) 52 POC Glucose (mg/dL) 119 H (65-110) mg/dL Random Glucose 105 (65-105) mg/dL Lactic Acid (0.7-2.1) mmol/L Calcium 8.2 L (8.6-10.4) mg/dl Phosphorus 2.4 L (2.5-4.5) mg/dL Magnesium 2.1 (1.6-2.3) mg/dL Total Bilirubin 0.6 (0.2-1.3) mg/dL AST 30 (14-36) U/L ALT 43 (9-52) U/L Alkaline Phosphatase 188 H D (38-126) U/L Total Protein 5.2 L (6.3-8.3) g/dL Albumin 2.4 L (3.5-5.0) g/dL Globulin 2.8 (2.2-3.9) gm/dL Albumin/Globulin Ratio 0.9 L (1.0-2.1) Procalcitonin (0.19-0.49) NG/ML Free T4 (0.78-2.19) ng/dL Total T3 (1.49-2.60) nmol/L TSH 3rd Generation (0.46-4.68) mIU/L Vancomycin Trough (5.0-10.0) ug/mL 07/21/18 07/21/1807/20/18 Range/Units 05:07 00:09 17:50 WBC (4.8-10.8) K/uL RBC (3.80-5.20) Mil/uL Hgb (11.0-16.0) g/dL Hct (34.0-47.0) % MCV (81.0-99.0) fL MCH (27.0-31.0) pg MCHC (33.0-37.0) g/dL RDW (11.5-14.5) % Plt Count (130-400) K/uL MPV (7.2-11.7) fL Neut % (Auto) (50.0-75.0) % Lymph % (Auto) (20.0-40.0) % [place] % (Auto) (0.0-10.0) % Eos % (Auto) (0.0-4.0) % Baso % (Auto) (0.0-2.0) % Neut # (Auto) (1.8-7.0) K/uL Lymph # (Auto) (1.0-4.3) K/uL [place] # (Auto) (0.0-0.8) K/uL Eos # (Auto) (0.0-0.7) K/uL Baso # (Auto) (0.0-0.2) K/uL Neutrophils % (Manual) (50-75) % Band Neutrophils % (0-2) % Lymphocytes % (Manual) (20-40) % Monocytes % (Manual) (0-10) % Eosinophils % (Manual) (0-4) % Platelet Estimate (NORMAL) Polychromasia Hypochromasia (manual) Anisocytosis (manual) PT (9.7-12.2) SECONDS INR APTT (21-34) SECONDS Puncture Site L rad pCO2 34 L (35-45) mm/Hg pO2 153 H (80-100) mm/Hg HCO3 27.5 (21-28) mmol/L ABG pH 7.50 H (7.35-7.45) ABG Total CO2 27.5 (22-28) mmol/L ABG O2 Saturation 100.4 H (95-98) % ABG Base Excess 3.2 H (-2.0-3.0) mmol/L ABG Hemoglobin 7.7 L (11.7-17.4) g/dL ABG Carboxyhemoglobin 2.3 H (0.5-1.5) % POC ABG HHb (Measured) -0.4 L (0.0-5.0) % ABG Methemoglobin 0.3 (0.0-3.0) % [place] Test Pos A-a O2 Difference 161.0 mm/Hg Respiratory Index 1.1 Hgb O2 Saturation 97.9 (95.0-98.0) % Vent Mode Prvc Mechanical Rate 10 FiO2 50.0 % Tidal Volume 450 PEEP 7 Sodium (132-148) mmol/L Potassium (3.6-5.2) mmol/L Chloride (98-107) mmol/L Carbon Dioxide (22-30) mmol/L Anion Gap (10-20) BUN (7-17) mg/dL Creatinine (0.7-1.2) mg/dL Est GFR ( Amer) Est GFR (Non-Af Amer) POC Glucose (mg/dL) 79 171 H (65-110) mg/dL Random Glucose (65-105) mg/dL Lactic Acid (0.7-2.1) mmol/L Calcium (8.6-10.4) mg/dl Phosphorus (2.5-4.5) mg/dL Magnesium (1.6-2.3) mg/dL Total Bilirubin (0.2-1.3) mg/dL AST (14-36) U/L ALT (9-52) U/L Alkaline Phosphatase (38-126) U/L Total Protein (6.3-8.3) g/dL Albumin (3.5-5.0) g/dL Globulin (2.2-3.9) gm/dL Albumin/Globulin Ratio (1.0-2.1) Procalcitonin (0.19-0.49) NG/ML Free T4 (0.78-2.19) ng/dL Total T3 (1.49-2.60) nmol/L TSH 3rd Generation (0.46-4.68) mIU/L Vancomycin Trough (5.0-10.0) ug/mL 07/20/18 07/20/18 07/20/18 Range/Units 12:27 11:39 11:25 WBC 14.4 H (4.8-10.8) K/uL RBC 2.89 L (3.80-5.20) Mil/uL Hgb 8.6 L (11.0-16.0) g/dL Hct 26.0 L (34.0-47.0) % MCV 90.0 (81.0-99.0) fL MCH 29.9 (27.0-31.0) pg MCHC 33.2 (33.0-37.0) g/dL RDW 15.7 H (11.5-14.5) % Plt Count 216 (130-400) K/uL MPV 9.7 (7.2-11.7) fL Neut % (Auto) 83.3 H (50.0-75.0) % Lymph % (Auto) 9.4 L (20.0-40.0) % [place] % (Auto) 5.2 (0.0-10.0) % Eos % (Auto) 1.5 (0.0-4.0) % Baso % (Auto) 0.6 (0.0-2.0) % Neut # (Auto) 12.0 H (1.8-7.0) K/uL Lymph # (Auto) 1.4 (1.0-4.3) K/uL [place] # (Auto) 0.8 (0.0-0.8) K/uL Eos # (Auto) 0.2 (0.0-0.7) K/uL Baso # (Auto) 0.1 (0.0-0.2) K/uL Neutrophils % (Manual) 79 H (50-75) % Band Neutrophils % 3 H (0-2) % Lymphocytes % (Manual) 12 L (20-40) % Monocytes % (Manual) 4 (0-10) % Eosinophils % (Manual) 2 (0-4) % Platelet Estimate Normal (NORMAL) Polychromasia Slight Hypochromasia (manual) Slight Anisocytosis (manual) Slight PT (9.7-12.2) SECONDS INR APTT (21-34) SECONDS Puncture Site pCO2 (35-45) mm/Hg pO2 (80-100) mm/Hg HCO3 (21-28) mmol/L ABG pH (7.35-7.45) ABG Total CO2 (22-28) mmol/L ABG O2 Saturation (95-98) % ABG Base Excess (-2.0-3.0) mmol/L ABG Hemoglobin (11.7-17.4) g/dL ABG Carboxyhemoglobin (0.5-1.5) % POC ABG HHb (Measured) (0.0-5.0) % ABG Methemoglobin (0.0-3.0) % [place] Test A-a O2 Difference mm/Hg Respiratory Index Hgb O2 Saturation (95.0-98.0) % Vent Mode Mechanical Rate FiO2 % Tidal Volume PEEP Sodium 141 (132-148) mmol/L Potassium 4.3 (3.6-5.2) mmol/L Chloride 107 (98-107) mmol/L Carbon Dioxide 27 (22-30) mmol/L Anion Gap 11 (10-20) BUN 27 H (7-17) mg/dL Creatinine 1.1 (0.7-1.2) mg/dL Est GFR ( Amer) > 60 Est GFR (Non-Af Amer) 52 POC Glucose (mg/dL) 200 H (65-110) mg/dL Random Glucose 177 H (65-105) mg/dL Lactic Acid (0.7-2.1) mmol/L Calcium 8.1 L (8.6-10.4) mg/dl Phosphorus 2.9 (2.5-4.5) mg/dL Magnesium 2.2 (1.6-2.3) mg/dL Total Bilirubin 0.8 (0.2-1.3) mg/dL AST 28 (14-36) U/L ALT 42 (9-52) U/L Alkaline Phosphatase 100 (38-126) U/L Total Protein 4.9 L (6.3-8.3) g/dL Albumin 2.1 L (3.5-5.0) g/dL Globulin 2.7 (2.2-3.9) gm/dL Albumin/Globulin Ratio 0.8 L (1.0-2.1) Procalcitonin (0.19-0.49) NG/ML Free T4 (0.78-2.19) ng/dL Total T3 0.857 L (1.49-2.60) nmol/L TSH 3rd Generation (0.46-4.68) mIU/L Vancomycin Trough (5.0-10.0) ug/mL 07/20/18 07/20/18 07/20/18 Range/Units 11:19 11:19 11:18 WBC (4.8-10.8) K/uL RBC (3.80-5.20) Mil/uL Hgb (11.0-16.0) g/dL Hct (34.0-47.0) % MCV (81.0-99.0) fL MCH (27.0-31.0) pg MCHC (33.0-37.0) g/dL RDW (11.5-14.5) % Plt Count (130-400) K/uL MPV (7.2-11.7) fL Neut % (Auto) (50.0-75.0) % Lymph % (Auto) (20.0-40.0) % [place] % (Auto) (0.0-10.0) % Eos % (Auto) (0.0-4.0) % Baso % (Auto) (0.0-2.0) % Neut # (Auto) (1.8-7.0) K/uL Lymph # (Auto) (1.0-4.3) K/uL [place] # (Auto) (0.0-0.8) K/uL Eos # (Auto) (0.0-0.7) K/uL Baso # (Auto) (0.0-0.2) K/uL Neutrophils % (Manual) (50-75) % Band Neutrophils % (0-2) % Lymphocytes % (Manual) (20-40) % Monocytes % (Manual) (0-10) % Eosinophils % (Manual) (0-4) % Platelet Estimate (NORMAL) Polychromasia Hypochromasia (manual) Anisocytosis (manual) PT 17.2 H (9.7-12.2) SECONDS INR 1.6 APTT 32 (21-34) SECONDS Puncture Site pCO2 (35-45) mm/Hg pO2 (80-100) mm/Hg HCO3 (21-28) mmol/L ABG pH (7.35-7.45) ABG Total CO2 (22-28) mmol/L ABG O2 Saturation (95-98) % ABG Base Excess (-2.0-3.0) mmol/L ABG Hemoglobin (11.7-17.4) g/dL ABG Carboxyhemoglobin (0.5-1.5) % POC ABG HHb (Measured) (0.0-5.0) % ABG Methemoglobin (0.0-3.0) % [place] Test A-a O2 Difference mm/Hg Respiratory Index Hgb O2 Saturation (95.0-98.0) % Vent Mode Mechanical Rate FiO2 % Tidal Volume PEEP Sodium (132-148) mmol/L Potassium (3.6-5.2) mmol/L Chloride (98-107) mmol/L Carbon Dioxide (22-30) mmol/L Anion Gap (10-20) BUN (7-17) mg/dL Creatinine (0.7-1.2) mg/dL Est GFR ( Amer) Est GFR (Non-Af Amer) POC Glucose (mg/dL) (65-110) mg/dL Random Glucose (65-105) mg/dL Lactic Acid 0.9 (0.7-2.1) mmol/L Calcium (8.6-10.4) mg/dl Phosphorus (2.5-4.5) mg/dL Magnesium (1.6-2.3) mg/dL Total Bilirubin (0.2-1.3) mg/dL AST (14-36) U/L ALT (9-52) U/L Alkaline Phosphatase (38-126) U/L Total Protein (6.3-8.3) g/dL Albumin (3.5-5.0) g/dL Globulin (2.2-3.9) gm/dL Albumin/Globulin Ratio (1.0-2.1) Procalcitonin (0.19-0.49) NG/ML Free T4 2.35 H (0.78-2.19) ng/dL Total T3 (1.49-2.60) nmol/L TSH 3rd Generation (0.46-4.68) mIU/L Vancomycin Trough (5.0-10.0) ug/mL 07/20/18 07/20/18 07/20/18 Range/Units 11:18 11:18 11:18 WBC (4.8-10.8) K/uL RBC (3.80-5.20) Mil/uL Hgb (11.0-16.0) g/dL Hct (34.0-47.0) % MCV (81.0-99.0) fL MCH (27.0-31.0) pg MCHC (33.0-37.0) g/dL RDW (11.5-14.5) % Plt Count (130-400) K/uL MPV (7.2-11.7) fL Neut % (Auto) (50.0-75.0) % Lymph % (Auto) (20.0-40.0) % [place] % (Auto) (0.0-10.0) % Eos % (Auto) (0.0-4.0) % Baso % (Auto) (0.0-2.0) % Neut # (Auto) (1.8-7.0) K/uL Lymph # (Auto) (1.0-4.3) K/uL [place] # (Auto) (0.0-0.8) K/uL Eos # (Auto) (0.0-0.7) K/uL Baso # (Auto) (0.0-0.2) K/uL Neutrophils % (Manual) (50-75) % Band Neutrophils % (0-2) % Lymphocytes % (Manual) (20-40) % Monocytes % (Manual) (0-10) % Eosinophils % (Manual) (0-4) % Platelet Estimate (NORMAL) Polychromasia Hypochromasia (manual) Anisocytosis (manual) PT (9.7-12.2) SECONDS INR APTT (21-34) SECONDS Puncture Site pCO2 (35-45) mm/Hg pO2 (80-100) mm/Hg HCO3 (21-28) mmol/L ABG pH (7.35-7.45) ABG Total CO2 (22-28) mmol/L ABG O2 Saturation (95-98) % ABG Base Excess (-2.0-3.0) mmol/L ABG Hemoglobin (11.7-17.4) g/dL ABG Carboxyhemoglobin (0.5-1.5) % POC ABG HHb (Measured) (0.0-5.0) % ABG Methemoglobin (0.0-3.0) % [place] Test A-a O2 Difference mm/Hg Respiratory Index Hgb O2 Saturation (95.0-98.0) % Vent Mode Mechanical Rate FiO2 % Tidal Volume PEEP Sodium (132-148) mmol/L Potassium (3.6-5.2) mmol/L Chloride (98-107) mmol/L Carbon Dioxide (22-30) mmol/L Anion Gap (10-20) BUN (7-17) mg/dL Creatinine (0.7-1.2) mg/dL Est GFR ( Amer) Est GFR (Non-Af Amer) POC Glucose (mg/dL) (65-110) mg/dL Random Glucose (65-105) mg/dL Lactic Acid (0.7-2.1) mmol/L Calcium (8.6-10.4) mg/dl Phosphorus (2.5-4.5) mg/dL Magnesium (1.6-2.3) mg/dL Total Bilirubin (0.2-1.3) mg/dL AST (14-36) U/L ALT (9-52) U/L Alkaline Phosphatase (38-126) U/L Total Protein (6.3-8.3) g/dL Albumin (3.5-5.0) g/dL Globulin (2.2-3.9) gm/dL Albumin/Globulin Ratio (1.0-2.1) Procalcitonin 3.81 H (0.19-0.49) NG/ML Free T4 (0.78-2.19) ng/dL Total T3 (1.49-2.60) nmol/L TSH 3rd Generation < 0.02 L (0.46-4.68) mIU/L Vancomycin Trough 24.0 H (5.0-10.0) ug/mL Laboratory Results - last 24 hr 07/20/18 07/20/18 07/20/18 11:18 11:18 11:18 WBC RBC Hgb Hct MCV MCH MCHC RDW Plt Count MPV Neut % (Auto) Lymph % (Auto) [place] % (Auto) Eos % (Auto) Baso % (Auto) Neut # (Auto) Lymph # (Auto) [place] # (Auto) Eos # (Auto) Baso # (Auto) Neutrophils % (Manual) Band Neutrophils % Lymphocytes % (Manual) Monocytes % (Manual) Eosinophils % (Manual) Platelet Estimate Polychromasia Hypochromasia (manual) Anisocytosis (manual) PT INR APTT Puncture Site pCO2 pO2 HCO3 ABG pH ABG Total CO2 ABG O2 Saturation ABG Base Excess ABG Hemoglobin ABG Carboxyhemoglobin POC ABG HHb (Measured) ABG Methemoglobin [place] Test A-a O2 Difference Respiratory Index Hgb O2 Saturation Vent Mode Mechanical Rate FiO2 Tidal Volume PEEP Sodium Potassium Chloride Carbon Dioxide Anion Gap BUN Creatinine Est GFR ( Amer) Est GFR (Non-Af Amer) POC Glucose (mg/dL) Random Glucose Lactic Acid Calcium Phosphorus Magnesium Total Bilirubin AST ALT Alkaline Phosphatase Total Protein Albumin Globulin Albumin/Globulin Ratio Procalcitonin 3.81 H Free T4 Total T3 TSH 3rd Generation < 0.02 L Vancomycin Trough 24.0 H 07/20/18 07/20/18 07/20/18 11:18 11:19 11:19 WBC RBC Hgb Hct MCV MCH MCHC RDW Plt Count MPV Neut % (Auto) Lymph % (Auto) [place] % (Auto) Eos % (Auto) Baso % (Auto) Neut # (Auto) Lymph # (Auto) [place] # (Auto) Eos # (Auto) Baso # (Auto) Neutrophils % (Manual) Band Neutrophils % Lymphocytes % (Manual) Monocytes % (Manual) Eosinophils % (Manual) Platelet Estimate Polychromasia Hypochromasia (manual) Anisocytosis (manual) PT 17.2 H INR 1.6 APTT 32 Puncture Site pCO2 pO2 HCO3 ABG pH ABG Total CO2 ABG O2 Saturation ABG Base Excess ABG Hemoglobin ABG Carboxyhemoglobin POC ABG HHb (Measured) ABG Methemoglobin [place] Test A-a O2 Difference Respiratory Index Hgb O2 Saturation Vent Mode Mechanical Rate FiO2 Tidal Volume PEEP Sodium Potassium Chloride Carbon Dioxide Anion Gap BUN Creatinine Est GFR ( Amer) Est GFR (Non-Af Amer) POC Glucose (mg/dL) Random Glucose Lactic Acid 0.9 Calcium Phosphorus Magnesium Total Bilirubin AST ALT Alkaline Phosphatase Total Protein Albumin Globulin Albumin/Globulin Ratio Procalcitonin Free T4 2.35 H Total T3 TSH 3rd Generation Vancomycin Trough 07/20/18 07/20/18 07/20/18 11:25 11:39 12:27 WBC 14.4 H RBC 2.89 L Hgb 8.6 L Hct 26.0 L MCV 90.0 MCH 29.9 MCHC 33.2 RDW 15.7 H Plt Count 216 MPV 9.7 Neut % (Auto) 83.3 H Lymph % (Auto) 9.4 L [place] % (Auto) 5.2 Eos % (Auto) 1.5 Baso % (Auto) 0.6 Neut # (Auto) 12.0 H Lymph # (Auto) 1.4 [place] # (Auto) 0.8 Eos # (Auto) 0.2 Baso # (Auto) 0.1 Neutrophils % (Manual) 79 H Band Neutrophils % 3 H Lymphocytes % (Manual) 12 L Monocytes % (Manual) 4 Eosinophils % (Manual) 2 Platelet Estimate Normal Polychromasia Slight Hypochromasia (manual) Slight Anisocytosis (manual) Slight PT INR APTT Puncture Site pCO2 pO2 HCO3 ABG pH ABG Total CO2 ABG O2 Saturation ABG Base Excess ABG Hemoglobin ABG Carboxyhemoglobin POC ABG HHb (Measured) ABG Methemoglobin [place] Test A-a O2 Difference Respiratory Index Hgb O2 Saturation Vent Mode Mechanical Rate FiO2 Tidal Volume PEEP Sodium 141 Potassium 4.3 Chloride 107 Carbon Dioxide 27 Anion Gap 11 BUN 27 H Creatinine 1.1 Est GFR ( Amer) > 60 Est GFR (Non-Af Amer) 52 POC Glucose (mg/dL) 200 H Random Glucose 177 H Lactic Acid Calcium 8.1 L Phosphorus 2.9 Magnesium 2.2 Total Bilirubin 0.8 AST 28 ALT 42 Alkaline Phosphatase 100 Total Protein 4.9 L Albumin 2.1 L Globulin 2.7 Albumin/Globulin Ratio 0.8 L Procalcitonin Free T4 Total T3 0.857 L TSH 3rd Generation Vancomycin Trough 07/20/18 07/21/18 07/21/18 17:50 00:09 05:07 WBC RBC Hgb Hct MCV MCH MCHC RDW Plt Count MPV Neut % (Auto) Lymph % (Auto) [place] % (Auto) Eos % (Auto) Baso % (Auto) Neut # (Auto) Lymph # (Auto) [place] # (Auto) Eos # (Auto) Baso # (Auto) Neutrophils % (Manual) Band Neutrophils % Lymphocytes % (Manual) Monocytes % (Manual) Eosinophils % (Manual) Platelet Estimate Polychromasia Hypochromasia (manual) Anisocytosis (manual) PT INR APTT Puncture Site L rad pCO2 34 L pO2 153 H HCO3 27.5 ABG pH 7.50 H ABG Total CO2 27.5 ABG O2 Saturation 100.4 H ABG Base Excess 3.2 H ABG Hemoglobin 7.7 L ABG Carboxyhemoglobin 2.3 H POC ABG HHb (Measured) -0.4 L ABG Methemoglobin 0.3 [place] Test Pos A-a O2 Difference 161.0 Respiratory Index 1.1 Hgb O2 Saturation 97.9 Vent Mode Prvc Mechanical Rate 10 FiO2 50.0 Tidal Volume 450 PEEP 7 Sodium Potassium Chloride Carbon Dioxide Anion Gap BUN Creatinine Est GFR ( Amer) Est GFR (Non-Af Amer) POC Glucose (mg/dL) 171 H 79 Random Glucose Lactic Acid Calcium Phosphorus Magnesium Total Bilirubin AST ALT Alkaline Phosphatase Total Protein Albumin Globulin Albumin/Globulin Ratio Procalcitonin Free T4 Total T3 TSH 3rd Generation Vancomycin Trough 07/21/18 07/21/18 07/21/18 05:08 06:02 06:02 WBC 7.0 D RBC 2.62 L Hgb 8.0 L Hct 23.5 L MCV 89.5 MCH 30.6 MCHC 34.2 RDW 15.3 H Plt Count 152 MPV 9.7 Neut % (Auto) 73.7 Lymph % (Auto) 15.6 L [place] % (Auto) 7.5 Eos % (Auto) 2.9 Baso % (Auto) 0.3 Neut # (Auto) 5.1 Lymph # (Auto) 1.1 [place] # (Auto) 0.5 Eos # (Auto) 0.2 Baso # (Auto) 0.0 Neutrophils % (Manual) Band Neutrophils % Lymphocytes % (Manual) Monocytes % (Manual) Eosinophils % (Manual) Platelet Estimate Polychromasia Hypochromasia (manual) Anisocytosis (manual) PT INR APTT Puncture Site pCO2 pO2 HCO3 ABG pH ABG Total CO2 ABG O2 Saturation ABG Base Excess ABG Hemoglobin ABG Carboxyhemoglobin POC ABG HHb (Measured) ABG Methemoglobin [place] Test A-a O2 Difference Respiratory Index Hgb O2 Saturation Vent Mode Mechanical Rate FiO2 Tidal Volume PEEP Sodium 140 Potassium 3.2 L Chloride 107 Carbon Dioxide 27 Anion Gap 9 L BUN 25 H Creatinine 1.1 Est GFR ( Amer) > 60 Est GFR (Non-Af Amer) 52 POC Glucose (mg/dL) 119 H Random Glucose 105 Lactic Acid Calcium 8.2 L Phosphorus 2.4 L Magnesium 2.1 Total Bilirubin 0.6 AST 30 ALT 43 Alkaline Phosphatase 188 H D Total Protein 5.2 L Albumin 2.4 L Globulin 2.8 Albumin/Globulin Ratio 0.9 L Procalcitonin Free T4 Total T3 TSH 3rd Generation Vancomycin Trough Fingerstick Blood Sugar Results: 172 Review of Systems - Review of Systems Systems not reviewed;Unavailable: Intubated Assessment/Plan - Assessment and Plan (Free Text) Assessment: This is a 52 yo female with PMH of DM2 and hypercholesterolemia who presented to with cough, post-tussive emesis, and malaise x2-3 weeks. She was admitted to the ICU for respiratory failure and acute renal failure. Remains intubated after failing extubation once. Plan: Neuro: - anoxic brain injury - sedated on precedex Pulm: - hypoxic respiratory failure secondary to pulmonary congestion, renal failure - goal SaO2 > 92% and paO2 > 55 - Duonebs 2 ml INH RQ4 - continue cpap trials - plan for tracheostomy Tuesday CV: - cardiac arrest from unknown etiology - Cardiology consulted. Appreciate recs. - repeat ECHO from shows left ventricular thrombus; - dopplers show LLE DVT, right cephalic vein thrombus - Was on Eliquis 2.5 mg PO BID, transitioned back to heparin drip - continue daily aspirin 81 mg, propranolol 5 mg PO TID, crestor 2.5 mg PO HS - maintain MAP>70 GI: - Glucerna for tube feeds - Protonix 40 mg IV daily Renal: - acute renal failure resolving - avoid nephrotoxic drugs Heme: - no acute issues - continue to monitor H/H Endo: - ISS for coverage, q6h - methimazole 10 mg PO TID ID: - merrem 1 gm daily and vancomycin 1 gm daily - negative cultures - ID following, appreciate all recs Dispo: pending another PS/CPAP trial, remains intubated FEN: NPO, on Tube Feeds Access: Peripheral IVs, right subclavian TLC, ETT, OGT Consults: Palliative, Endo, Nephro, Cardio, Neuro, Cardio Ppx: Protonix for GI, SCDs Code status: FULL Next of kin: Martina Isaacs () Patient seen, reviewed, and discussed with attending, Dr. Dayo Hinkle PGY-1 - Date & Time Date: 07/21/18 Time: 08:00
[2018-07-21] MEDS: Heparin25000 units/250ml 1/2NS 25,000 UNITS/250 ML BAG IV PRN (15:00)
[2018-07-21 15:11] LABS: INR 1.7; PROTHROMBIN TIME 19.1 SECONDS (9.7-12.2)
--- NOTE | 2018-07-21 15:55 | CP.PCM.PN ---
Subjective - Date & Time of Evaluation Date of Evaluation: 07/21/18 Time of Evaluation: 08:00 - Subjective Subjective: iv rx in progress antibiotics renewed Objective - Vital Signs/Intake and Output Vital Signs (last 24 hours): Temp Pulse Resp BP Pulse Ox 99.4 F 83 19 108/58 L 100 07/21/18 04:00 07/21/18 15:31 07/21/18 15:31 07/21/18 15:31 07/21/18 15:31 Intake and Output: 07/21/18 07/21/18 06:59 18:59 Intake Total 1087.0 678.1 Output Total 1700 Balance -613.0 678.1 - Medications Medications: Current Medications Acetaminophen (Tylenol 325mg Tab) 650 mg PO Q6 PRN PRN Reason: Fever >100.4 F Last Admin: 07/19/18 21:04 Dose: 650 mg Albuterol/Ipratropium (Duoneb 3 Mg/0.5 Mg (3 Ml) Ud) 3 ml INH RQ6 [facility] Last Admin: 07/21/18 13:19 Dose: 3 ml Aspirin (Aspirin Chewable) 81 mg GT DAILY [facility] Last Admin: 07/21/18 09:02 Dose: 81 mg Ergocalciferol (Drisdol 50,000 Intl Units Cap) 1 cap PO Q7D [facility] Last Admin: 07/18/18 12:07 Dose: 1 cap Furosemide (Lasix) 20 mg IVP BID [facility] Last Admin: 07/21/18 09:02 Dose: 20 mg Vancomycin HCl 1 gm/ Sodium (Chloride) 250 mls @ 166.7 mls/hr IVPB Q24H [facility]; Protocol Last Admin: 07/19/18 17:00 Dose: 166.7 mls/hr Dexmedetomidine HCl 200 mcg/ (Sodium Chloride) 50 mls @ 2.91 mls/hr IV TITR PRN; Protocol PRN Reason: Sedation Last Titration: 07/20/18 22:00 Dose: 0.1 mcg/kg/hr, 1.45 mls/hr Norepinephrine Bitartrate 4 mg (/ Dextrose) 254 mls @ 15.24 mls/hr IV .[id number] PRN; Protocol PRN Reason: TITRATE PER MD ORDER Last Admin: 07/21/18 13:00 Dose: 2 mcg/min, 7.62 mls/hr Meropenem 1 gm/ Sodium (Chloride) 100 mls @ 100 mls/hr IVPB Q8H [facility]; Protocol Last Admin: 07/21/18 12:00 Dose: 100 mls/hr Heparin Sodium/Sodium Chloride (Heparin 01286 Units/250ml 1/2 Normal Saline) 25,000 units in 250 mls @ 6.804 mls/hr IV .Q24H PRN; Protocol PRN Reason: PROTOCOL Last Admin: 07/21/18 15:00 Dose: 6.804 mls/hr Insulin Aspart (Novolog) 0 unit SC Q6 [facility]; Protocol Last Admin: 07/21/18 12:00 Dose: Not Given Insulin Glargine (Lantus) 20 unit SC Q12 [facility] Last Admin: 07/21/18 09:02 Dose: 20 u Lactobacillus Acidophilus (Bacid Acidophilus) 1 cap PO Q12H [facility] Last Admin: 07/21/18 09:00 Dose: 1 cap Methimazole (Tapazole) 10 mg PO TID [facility] Last Admin: 07/21/18 14:19 Dose: 10 mg Pantoprazole Sodium (Protonix Susp) 40 mg PO DAILY [facility] Last Admin: 07/21/18 09:02 Dose: 40 mg Propranolol HCl (Inderal) 5 mg PO TID [facility] Last Admin: 07/21/18 14:19 Dose: 5 mg Rosuvastatin Calcium (Crestor) 2.5 mg PO HS [facility] Last Admin: 07/20/18 21:14 Dose: 2.5 mg - Labs Labs: 07/21/18 06:02 07/21/18 06:02 PT 19.1 SECONDS (9.7-12.2) H 07/21/18 14:58 INR 1.7 07/21/18 14:58 APTT 34 SECONDS (21-34) 07/21/18 14:58 - Constitutional Appears: Non-toxic, Chronically Ill - Head Exam Head Exam: NORMOCEPHALIC - Eye Exam Eye Exam: PERRL - ENT Exam ENT Exam: Mucous Membranes Dry - Neck Exam Neck Exam: absent: Lymphadenopathy - Respiratory Exam Respiratory Exam: Decreased Breath Sounds - Cardiovascular Exam Cardiovascular Exam: REGULAR RHYTHM - GI/Abdominal Exam GI & Abdominal Exam: Distended, Soft - Rectal Exam Rectal Exam: Deferred - Exam Exam: NORMAL INSPECTION Assessment and Plan (1) NEHA (acute kidney injury) Status: Acute (2) Acute renal failure Status: Acute (3) Acute respiratory failure Status: Acute (4) Aspiration pneumonia Status: Acute (5) Septic shock Status: Acute (6) Urinary tract infection Status: Acute (7) Diabetes mellitus Status: Chronic
--- NOTE | 2018-07-21 17:54 | CARD ---
APPROVED REPORT Date of service: 07/20/2018 EKG Measurement Heart [id number] <Conclusion> Normal sinus with ventricular bigeminy Very long QT, consider drug effect or electrolyte abnormality Abnormal ECG
[2018-07-21] MEDS: Rosuvastatin Calcium 2.5 mg Tab PO SCH (21:32)
[2018-07-22] MEDS: (Novolog) Insulin Aspart, Recombinant 100 u/ml 10 ml vial SC SCH ×4 (00:08→18:56)
[2018-07-22] MEDS: Albuterol-Ipratrop 3 mg / 0.5 (3 ml) UD INH SCH ×4 (01:11→19:48)
[2018-07-22] MEDS: Meropenem 1 GM in Sodium Chloride 0.9% 100 ML IVPB SCH ×3 (03:20→18:55)
[2018-07-22 06:01] LABS: ARTERIAL BLOOD GAS HCO3 27.1 mmol/L (21-28); ARTERIAL BLOOD GAS HEMOGLOBIN 7.4 g/dL (11.7-17.4); ARTERIAL BLOOD GAS O2 SAT 98.7 % (95-98); ARTERIAL BLOOD GAS PCO2 40 mm/Hg (35-45); ARTERIAL BLOOD GAS PH 7.44 (7.35-7.45); ARTERIAL BLOOD GAS PO2 97 mm/Hg (80-100); ARTERIAL BLOOD GAS TCO2 28.4 mmol/L (22-28)
[2018-07-22 06:39] LABS: BASO % 0.5 % (0.0-2.0); EOS # 0.2 K/uL (0.0-0.7); EOS % 2.9 % (0.0-4.0); HEMOGLOBIN 7.5 g/dL (11.0-16.0); LYMPH # 1.1 K/uL (1.0-4.3); LYMPH % 18.3 % (20.0-40.0); MEAN CORPUSCULAR HEMOGLOBIN 29.4 pg (27.0-31.0); MEAN CORPUSCULAR HGB CONC 32.7 g/dL (33.0-37.0); MEAN PLATELET VOLUME 9.8 fL (7.2-11.7); MONO # 0.4 K/uL (0.0-0.8); MONO % 7.1 % (0.0-10.0); NEUT # 4.2 K/uL (1.8-7.0); NEUT % 71.2 % (50.0-75.0); RBC 2.56 Mil/uL (3.80-5.20); RED CELL DISTRIBUTION WIDTH 15.6 % (11.5-14.5); WHITE BLOOD COUNT 5.8 K/uL (4.8-10.8)
[2018-07-22 06:57] LABS: ALB/GLOB RATIO 0.8 (1.0-2.1); ALBUMIN 2.4 g/dL (3.5-5.0); ALT/SGPT 36 U/L (9-52); AST/SGOT 24 U/L (14-36); BLOOD UREA NITROGEN 24 mg/dL (7-17); CALCIUM 8.1 mg/dl (8.6-10.4); GFR NON-AFRICAN AMERICAN 52
--- NOTE | 2018-07-22 07:24 | RAD ---
Date of service: 07/22/2018 HISTORY: s/p intubation COMPARISON: 07/21/2018 FINDINGS: LUNGS: Lines and tubes in stable position. Moderate venous congestion. Patchy bibasilar airspace opacities with small bilateral pleural effusions. Biapical pleural thickening. Scattered nodular densities in both lung james. PLEURA: As above. CARDIOVASCULAR: No aortic atherosclerotic calcification present Mild cardiomegaly. OSSEOUS STRUCTURES: No significant abnormalities. VISUALIZED UPPER ABDOMEN: Normal. OTHER FINDINGS: None. IMPRESSION: No significant interval change.
--- NOTE | 2018-07-22 07:30 | CP.PCM.PN ---
Subjective - Date & Time of Evaluation Date of Evaluation: 07/21/18 Time of Evaluation: 20:30 - Subjective Subjective: Patient seen and evaluated On Ventilator Hx of Non STEMI, CAD, LV thrombus, Resp Failure and failure to wean Plan for Tracheotomy Given multiple cardiac and non cardiac non modifiable comorbidities this patient is considered high risk for any surgical procedures In benefit out weighs the risk please proceed with the Tracheotomy No further pre surgical cardiac investigations is advisable Thank you Objective - Vital Signs/Intake and Output Vital Signs (last 24 hours): Temp Pulse Resp BP Pulse Ox 99.1 F 80 10 L 102/53 L 100 07/22/18 04:00 07/22/18 06:00 07/22/18 06:00 07/22/18 05:10 07/22/18 06:00 Intake and Output: 07/22/18 07/22/18 06:59 18:59 Intake Total 959.8 52.0 Output Total 950 Balance 9.8 52.0 - Medications Medications: Current Medications Acetaminophen (Tylenol 325mg Tab) 650 mg PO Q6 PRN PRN Reason: Fever >100.4 F Last Admin: 07/19/18 21:04 Dose: 650 mg Albuterol/Ipratropium (Duoneb 3 Mg/0.5 Mg (3 Ml) Ud) 3 ml INH RQ6 [facility] Last Admin: 07/22/18 01:11 Dose: 3 ml Aspirin (Aspirin Chewable) 81 mg GT DAILY [facility] Last Admin: 07/21/18 09:02 Dose: 81 mg Ergocalciferol (Drisdol 50,000 Intl Units Cap) 1 cap PO Q7D [facility] Last Admin: 07/18/18 12:07 Dose: 1 cap Furosemide (Lasix) 20 mg IVP BID [facility] Last Admin: 07/21/18 18:00 Dose: 20 mg Vancomycin HCl 1 gm/ Sodium (Chloride) 250 mls @ 166.7 mls/hr IVPB Q24H [facility]; Protocol Last Admin: 07/19/18 17:00 Dose: 166.7 mls/hr Dexmedetomidine HCl 200 mcg/ (Sodium Chloride) 50 mls @ 2.91 mls/hr IV TITR PRN; Protocol PRN Reason: Sedation Last Titration: 07/21/18 22:15 Dose: 0.2 mcg/kg/hr, 2.91 mls/hr Norepinephrine Bitartrate 4 mg (/ Dextrose) 254 mls @ 15.24 mls/hr IV .[id number] PRN; Protocol PRN Reason: TITRATE PER MD ORDER Last Admin: 07/21/18 13:00 Dose: 2 mcg/min, 7.62 mls/hr Meropenem 1 gm/ Sodium (Chloride) 100 mls @ 100 mls/hr IVPB Q8H [facility]; Protocol Last Admin: 07/22/18 03:20 Dose: 100 mls/hr Heparin Sodium/Sodium Chloride (Heparin 29205 Units/250ml 1/2 Normal Saline) 25,000 units in 250 mls @ 6.804 mls/hr IV .Q24H PRN; Protocol PRN Reason: PROTOCOL Last Admin: 07/21/18 15:00 Dose: 6.804 mls/hr Insulin Aspart (Novolog) 0 unit SC Q6 [facility]; Protocol Last Admin: 07/22/18 06:00 Dose: Not Given Insulin Glargine (Lantus) 20 unit SC Q12 [facility] Last Admin: 07/21/18 21:36 Dose: 20 u Lactobacillus Acidophilus (Bacid Acidophilus) 1 cap PO Q12H [facility] Last Admin: 07/21/18 20:43 Dose: 1 cap Methimazole (Tapazole) 10 mg PO TID [facility] Last Admin: 07/21/18 18:00 Dose: 10 mg Pantoprazole Sodium (Protonix Susp) 40 mg PO DAILY [facility] Last Admin: 07/21/18 09:02 Dose: 40 mg Propranolol HCl (Inderal) 5 mg PO TID [facility] Last Admin: 07/21/18 18:00 Dose: 5 mg Rosuvastatin Calcium (Crestor) 2.5 mg PO HS [facility] Last Admin: 07/21/18 21:32 Dose: 2.5 mg - Labs Labs: 07/22/18 06:33 07/22/18 06:33 PT 19.1 SECONDS (9.7-12.2) H 07/21/18 14:58 INR 1.7 07/21/18 14:58 APTT 51 SECONDS (21-34) H 07/22/18 06:33
--- NOTE | 2018-07-22 08:06 | CP.PCM.PN ---
Subjective - Date & Time of Evaluation Date of Evaluation: 07/22/18 Time of Evaluation: 07:45 - Subjective Subjective: General Surgery Note for Dr. Melchor Patient seen and examined at bedside. No acute event overnight. Patient is still intubated and sedated. ROS unobtainable due to clinical status. Objective - Vital Signs/Intake and Output Vital Signs (last 24 hours): Temp Pulse Resp BP Pulse Ox 99.1 F 80 10 L 102/53 L 100 07/22/18 04:00 07/22/18 06:00 07/22/18 06:00 07/22/18 05:10 07/22/18 06:00 Intake and Output: 07/22/18 07/22/18 06:59 18:59 Intake Total 959.8 52.0 Output Total 950 Balance 9.8 52.0 - Medications Medications: Current Medications Acetaminophen (Tylenol 325mg Tab) 650 mg PO Q6 PRN PRN Reason: Fever >100.4 F Last Admin: 07/19/18 21:04 Dose: 650 mg Albuterol/Ipratropium (Duoneb 3 Mg/0.5 Mg (3 Ml) Ud) 3 ml INH RQ6 [facility] Last Admin: 07/22/18 07:49 Dose: 3 ml Aspirin (Aspirin Chewable) 81 mg GT DAILY [facility] Last Admin: 07/21/18 09:02 Dose: 81 mg Ergocalciferol (Drisdol 50,000 Intl Units Cap) 1 cap PO Q7D [facility] Last Admin: 07/18/18 12:07 Dose: 1 cap Furosemide (Lasix) 20 mg IVP BID [facility]O Last Admin: 07/21/18 18:00 Dose: 20 mg Vancomycin HCl 1 gm/ Sodium (Chloride) 250 mls @ 166.7 mls/hr IVPB Q24H MANOLO; Protocol Last Admin: 07/19/18 17:00 Dose: 166.7 mls/hr Dexmedetomidine HCl 200 mcg/ (Sodium Chloride) 50 mls @ 2.91 mls/hr IV TITR PRN ; Protocol PRN Reason: Sedation Last Titration: 07/21/18 22:15 Dose: 0.2 mcg/kg/hr, 2.91 mls/hr Norepinephrine Bitartrate 4 mg (/ Dextrose) 254 mls @ 15.24 mls/hr IV .[id number] PRN; Protocol PRN Reason: TITRATE PER MD ORDER Last Admin: 07/21/18 13:00 Dose: 2 mcg/min, 7.62 mls/hr Meropenem 1 gm/ Sodium (Chloride) 100 mls @ 100 mls/hr IVPB Q8H [facility]OLO; Protocol Last Admin: 07/22/18 03:20 Dose: 100 mls/hr Heparin Sodium/Sodium Chloride (Heparin 99410 Units/250ml 1/2 Normal Saline) 25,000 units in 250 mls @ 6.804 mls/hr IV .Q24H PRN; Protocol PRN Reason: PROTOCOL Last Admin: 07/21/18 15:00 Dose: 6.804 mls/hr Insulin Aspart (Novolog) 0 unit SC Q6 [facility]O; Protocol Last Admin: 07/22/18 06:00 Dose: Not Given Insulin Glargine (Lantus) 20 unit SC Q12 [facility] Last Admin: 07/21/18 21:36 Dose: 20 u Lactobacillus Acidophilus (Bacid Acidophilus) 1 cap PO Q12H [facility] Last Admin: 07/21/18 20:43 Dose: 1 cap Methimazole (Tapazole) 10 mg PO TID [facility] Last Admin: 07/21/18 18:00 Dose: 10 mg Pantoprazole Sodium (Protonix Susp) 40 mg PO DAILY [facility] Last Admin: 07/21/18 09:02 Dose: 40 mg Propranolol HCl (Inderal) 5 mg PO TID [facility] Last Admin: 07/21/18 18:00 Dose: 5 mg Rosuvastatin Calcium (Crestor) 2.5 mg PO HS [facility] Last Admin: 07/21/18 21:32 Dose: 2.5 mg - Labs Labs: 07/22/18 06:33 07/22/18 06:33 PT 19.1 SECONDS (9.7-12.2) H 07/21/18 14:58 INR 1.7 07/21/18 14:58 APTT 51 SECONDS (21-34) H 07/22/18 06:33 - Additional Findings Additional findings: - Constitutional Appears: No Acute Distress - Head Exam Head Exam: ATRAUMATIC, NORMOCEPHALIC - ENT Exam ENT Exam: Mucous Membranes Moist - Respiratory Exam Additional comments: Patient is intubated on mechanical ventilation - Cardiovascular Exam Cardiovascular Exam: RRR - GI/Abdominal Exam GI & Abdominal Exam: Soft. absent: Distended, Tenderness - Extremities Exam Extremities exam: Positive for: pedal pulses present - Neurological Exam Neurological exam: Altered - Psychiatric Exam Psychiatric exam: Flat Affect - Skin Skin Exam: Dry, Normal Color, Warm Assessment and Plan - Assessment and Plan (Free Text) Assessment: 52 female with respiratory distress on prolonged mechanical ventilation, unable to be weaned Plan: -Will plan for tracheostomy on Tuesday -Hold eliquis and start on Heparin Drip in preparation for OR -Wean off pressors -recommend cardiac risk evaluation -medical optimization -Management as per ICU -Discussed with Dr. Ruiz Morocho PGY2
[2018-07-22] MEDS: (Lantus) Insulin Glargine, Recombinant SC SCH ×2 (11:00→22:16)
[2018-07-22] MEDS: Lactobacillus Acidophilus 500 MU Cap PO SCH ×2 (11:00→20:45)
[2018-07-22] MEDS: Propranolol 5 mg Tab PO SCH ×3 (11:00→18:56)
[2018-07-22] MEDS: Pantoprazole 40 mg Susp UD PO SCH (11:00)
--- NOTE | 2018-07-22 12:24 | CP.CCUPN ---
CCU Subjective - Physician Review Subjective (Free Text): 07/22/18 12:21 Patient remains intubated, failed extuabtion x 2, awaiting trach on Tuesday Critical Care Time Spent (in minutes): 32 CCU Objective - Vital Signs / Intake & Output Vital Signs (Last 4 hours): Vital Signs Pulse Resp BP Pulse Ox 07/22/18 11:00 109/74 07/22/18 10:10 67 9 L 113/51 L 100 07/22/18 10:00 82 13 100 07/22/18 09:10 73 10 L 108/52 L 100 07/22/18 09:00 72 11 L 100 Intake and Output (Last 8hrs): Intake & Output 07/21/18 07/22/18 07/22/18 22:59 06:59 14:59 Intake Total 583.4 573.2 218.8 Output Total 500 450 Balance 83.4 123.2 218.8 Weight 127 lb 0.12 oz Intake: IV 27 Intake, IV Amount 216.4 233.2 78.8 Right Distal Port 2.8 19.6 7.0 Subclavian Right Hand 53.6 53.6 26.8 Right Medial Port 37.5 Subclavian Right Proximal Port 22.5 60.0 45.0 Subclavian rt hand side port 100 100 Tube Feeding 280 280 140 Other 60 60 Output: Urine 500 450 Urine, Voided 500 450 Other: # Bowel Movements 1 1 - Physical Exam Head: Positive for: Atraumatic, Normocephalic Pupils: Positive for: PERRL. Negative for: Sluggish, Pinpoint Extroacular Muscles: Positive for: EOMI. Negative for: Gaze Palsy Conjunctiva: Positive for: Normal. Negative for: Injected, Icteric Mouth: Positive for: Moist Mucous Membranes Nose (External): Positive for: Atraumatic. Negative for: Abrasion, Contusion, Laceration Nose (Internal): Positive for: No Active Bleeding. Negative for: Epistaxis Neck: Positive for: Normal Range of Motion, Trachea Midline. Negative for: JVD Respiratory/Chest: Positive for: Good Air Exchange, Rhonchi (mild ronchi in bilateral bases), Other (intubated and ventilated). Negative for: Wheezes, Rales Cardiovascular: Positive for: Normal S1, S2, Peripheal Pulses Present, Tachycardic. Negative for: Regular Rate and Rhythm Abdomen: Positive for: Normal Bowel Sounds. Negative for: Tenderness, Distention, Rebound, Guarding Upper Extremity: Positive for: Normal Inspection, NORMAL PULSES. Negative for: Cyanosis, Edema Lower Extremity: Positive for: Normal Inspection. Negative for: Edema, CALF TENDERNESS Neurological: Positive for: Other (weaning from sedation, intermittently opens eyes and tracks staff across room, but minimal spontaneous movements, not following verbal or pantomimed commands) Skin: Positive for: Warm, Dry, Normal Color Psychiatric: Positive for: Alert - Medications Active Medications: Active Medications Generic Name Dose Route Start Last Admin Trade Name Freq PRN Reason Stop Dose Admin Acetaminophen 650 mg 07/12/18 15:57 07/19/18 21:04 Tylenol 325mg Tab PO 650 mg Q6 PRN Administration Fever >100.4 F Albuterol/Ipratropium 3 ml 07/14/18 20:00 07/22/18 07:49 Duoneb 3 Mg/0.5 Mg (3 Ml) Ud INH 3 ml RQ6 MANOLO Administration Aspirin 81 mg 07/17/18 10:00 07/22/18 11:00 Aspirin Chewable GT 81 mg DAILY MANOLO Administration Ergocalciferol 1 cap 07/11/18 12:45 07/18/18 12:07 Drisdol 50,000 Intl Units Cap PO 1 cap Q7D MAN[facility]O Administration Furosemide 20 mg 07/17/18 18:00 07/22/18 11:00 Lasix IVP 20 mg BID MANOLO Administration Vancomycin HCl 1 gm/ Sodium 250 mls @ 166.7 mls/hr 07/14/18 18:00 07/19/18 17:00 Chloride IVPB 166.7 mls/hr Q24H [facility] Administration Protocol Dexmedetomidine HCl 200 mcg/ 50 mls @ 2.91 mls/hr 07/15/18 19:55 07/21/18 22:15 Sodium Chloride IV 0.2 mcg/kg/hr TITR PRN 2.91 mls/hr Sedation Titration Protocol 0.2 MCG/KG/HR Norepinephrine Bitartrate 4 mg 254 mls @ 15.24 mls/hr 07/20/18 01:13 07/21/18 13:00 / Dextrose IV 2 mcg/min .[id number] PRN 7.62 mls/hr TITRATE PER MD ORDER Administration Protocol 4 MCG/MIN Meropenem 1 gm/ Sodium 100 mls @ 100 mls/hr 07/20/18 11:45 07/22/18 03:20 Chloride IVPB 100 mls/hr Q8H [facility]O Administration Protocol Heparin Sodium/Sodium Chloride 25,000 units in 250 mls @ 6.804 mls/hr 07/21/18 10:19 07/21/18 15:00 Heparin 01634 Units/250ml 1/2 Normal Saline IV 6.804 mls/hr .Q24H PRN Administration PROTOCOL Protocol 12 UNITS/KG/HR Insulin Aspart 0 unit 07/11/18 08:28 07/22/18 06:00 Novolog SC Not Given Q6 [facility]O Protocol Insulin Glargine 20 unit 07/17/18 09:46 07/22/18 11:00 Lantus SC 20 u Q12 [facility] Administration Lactobacillus Acidophilus 1 cap 07/08/18 20:00 07/22/18 11:00 Bacid Acidophilus PO 1 cap Q12H [facility] Administration Methimazole 10 mg 07/11/18 10:00 07/21/18 18:00 Tapazole PO 10 mg TID [facility] Administration Pantoprazole Sodium 40 mg 07/20/18 10:00 07/22/18 11:00 Protonix Susp PO 40 mg DAILY [facility] Administration Propranolol HCl 5 mg 07/16/18 10:00 07/22/18 11:00 Inderal PO 5 mg TID [facility] Administration Rosuvastatin Calcium 2.5 mg 07/13/18 22:00 07/21/18 21:32 Crestor PO 2.5 mg HS MAN[facility]O Administration - Patient Studies Lab Studies: Microbiology Studies 07/20/18 11:18 Blood Culture - Preliminary Blood-Thru Central Line NO GROWTH AFTER 48 HOURS 07/20/18 11:18 Blood Culture - Preliminary Blood-Thru Central Line NO GROWTH AFTER 48 HOURS 07/20/18 20:35 Gram Stain - Final Trachasp Sputum Culture - Final Yeast Species 07/20/18 11:19 Urine Culture - Final Urine No Growth (<1,000 CFU/ML) Lab Studies 07/22/18 07/22/18 07/22/18 Range/Units 06:33 06:33 06:33 WBC (4.8-10.8) K/uL RBC (3.80-5.20) Mil/uL Hgb (11.0-16.0) g/dL Hct (34.0-47.0) % MCV (81.0-99.0) fL MCH (27.0-31.0) pg MCHC (33.0-37.0) g/dL RDW (11.5-14.5) % Plt Count (130-400) K/uL MPV (7.2-11.7) fL Neut % (Auto) (50.0-75.0) % Lymph % (Auto) (20.0-40.0) % Parke % (Auto) (0.0-10.0) % Eos % (Auto) (0.0-4.0) % Baso % (Auto) (0.0-2.0) % Neut # (Auto) (1.8-7.0) K/uL Lymph # (Auto) (1.0-4.3) K/uL Parke # (Auto) (0.0-0.8) K/uL Eos # (Auto) (0.0-0.7) K/uL Baso # (Auto) (0.0-0.2) K/uL PT (9.7-12.2) SECONDS INR APTT 51 H (21-34) SECONDS Puncture Site pCO2 (35-45) mm/Hg pO2 (80-100) mm/Hg HCO3 (21-28) mmol/L ABG pH (7.35-7.45) ABG Total CO2 (22-28) mmol/L ABG O2 Saturation (95-98) % ABG Base Excess (-2.0-3.0) mmol/L ABG Hemoglobin (11.7-17.4) g/dL ABG Carboxyhemoglobin (0.5-1.5) % POC ABG HHb (Measured) (0.0-5.0) % ABG Methemoglobin (0.0-3.0) % Kevon Test A-a O2 Difference mm/Hg Respiratory Index Hgb O2 Saturation (95.0-98.0) % Vent Mode Mechanical Rate FiO2 % Tidal Volume PEEP Sodium 142 (132-148) mmol/L Potassium 3.7 (3.6-5.2) mmol/L Chloride 108 H (98-107) mmol/L Carbon Dioxide 27 (22-30) mmol/L Anion Gap 11 (10-20) BUN 24 H (7-17) mg/dL Creatinine 1.1 (0.7-1.2) mg/dL Est GFR ( Amer) > 60 Est GFR (Non-Af Amer) 52 POC Glucose (mg/dL) 92 (65-110) mg/dL Random Glucose 89 (65-105) mg/dL Calcium 8.1 L (8.6-10.4) mg/dl Phosphorus 4.0 (2.5-4.5) mg/dL Magnesium 2.1 (1.6-2.3) mg/dL Total Bilirubin 0.5 (0.2-1.3) mg/dL AST 24 (14-36) U/L ALT 36 (9-52) U/L Alkaline Phosphatase 187 H (38-126) U/L Total Protein 5.2 L (6.3-8.3) g/dL Albumin 2.4 L (3.5-5.0) g/dL Globulin 2.8 (2.2-3.9) gm/dL Albumin/Globulin Ratio 0.8 L (1.0-2.1) Vancomycin Trough (5.0-10.0) ug/mL 07/22/18 07/22/18 07/21/18 Range/Units 06:33 05:31 23:28 WBC 5.8 (4.8-10.8) K/uL RBC 2.56 L (3.80-5.20) Mil/uL Hgb 7.5 L (11.0-16.0) g/dL Hct 23.0 L (34.0-47.0) % MCV 90.0 (81.0-99.0) fL MCH 29.4 (27.0-31.0) pg MCHC 32.7 L (33.0-37.0) g/dL RDW 15.6 H (11.5-14.5) % Plt Count 169 (130-400) K/uL MPV 9.8 (7.2-11.7) fL Neut % (Auto) 71.2 (50.0-75.0) % Lymph % (Auto) 18.3 L (20.0-40.0) % Parke % (Auto) 7.1 (0.0-10.0) % Eos % (Auto) 2.9 (0.0-4.0) % Baso % (Auto) 0.5 (0.0-2.0) % Neut # (Auto) 4.2 (1.8-7.0) K/uL Lymph # (Auto) 1.1 (1.0-4.3) K/uL Parke # (Auto) 0.4 (0.0-0.8) K/uL Eos # (Auto) 0.2 (0.0-0.7) K/uL Baso # (Auto) 0.0 (0.0-0.2) K/uL PT (9.7-12.2) SECONDS INR APTT (21-34) SECONDS Puncture Site L brac pCO2 40 (35-45) mm/Hg pO2 97 (80-100) mm/Hg HCO3 27.1 (21-28) mmol/L ABG pH 7.44 (7.35-7.45) ABG Total CO2 28.4 H (22-28) mmol/L ABG O2 Saturation 98.7 H (95-98) % ABG Base Excess 2.8 (-2.0-3.0) mmol/L ABG Hemoglobin 7.4 L (11.7-17.4) g/dL ABG Carboxyhemoglobin 1.6 H (0.5-1.5) % POC ABG HHb (Measured) 1.3 (0.0-5.0) % ABG Methemoglobin 0.8 (0.0-3.0) % Kevon Test Na A-a O2 Difference 210.0 mm/Hg Respiratory Index 2.2 Hgb O2 Saturation 96.2 (95.0-98.0) % Vent Mode Prvc Mechanical Rate 10 FiO2 50.0 % Tidal Volume 450 PEEP 5 Sodium (132-148) mmol/L Potassium (3.6-5.2) mmol/L Chloride (98-107) mmol/L Carbon Dioxide (22-30) mmol/L Anion Gap (10-20) BUN (7-17) mg/dL Creatinine (0.7-1.2) mg/dL Est GFR ( Amer) Est GFR (Non-Af Amer) POC Glucose (mg/dL) 126 H (65-110) mg/dL Random Glucose (65-105) mg/dL Calcium (8.6-10.4) mg/dl Phosphorus (2.5-4.5) mg/dL Magnesium (1.6-2.3) mg/dL Total Bilirubin (0.2-1.3) mg/dL AST (14-36) U/L ALT (9-52) U/L Alkaline Phosphatase (38-126) U/L Total Protein (6.3-8.3) g/dL Albumin (3.5-5.0) g/dL Globulin (2.2-3.9) gm/dL Albumin/Globulin Ratio (1.0-2.1) Vancomycin Trough (5.0-10.0) ug/mL 07/21/18 07/21/18 07/21/18 Range/Units 21:26 17:32 17:31 WBC (4.8-10.8) K/uL RBC (3.80-5.20) Mil/uL Hgb (11.0-16.0) g/dL Hct (34.0-47.0) % MCV (81.0-99.0) fL MCH (27.0-31.0) pg MCHC (33.0-37.0) g/dL RDW (11.5-14.5) % Plt Count (130-400) K/uL MPV (7.2-11.7) fL Neut % (Auto) (50.0-75.0) % Lymph % (Auto) (20.0-40.0) % Parke % (Auto) (0.0-10.0) % Eos % (Auto) (0.0-4.0) % Baso % (Auto) (0.0-2.0) % Neut # (Auto) (1.8-7.0) K/uL Lymph # (Auto) (1.0-4.3) K/uL Parke # (Auto) (0.0-0.8) K/uL Eos # (Auto) (0.0-0.7) K/uL Baso # (Auto) (0.0-0.2) K/uL PT (9.7-12.2) SECONDS INR APTT 51 H D (21-34) SECONDS Puncture Site pCO2 (35-45) mm/Hg pO2 (80-100) mm/Hg HCO3 (21-28) mmol/L ABG pH (7.35-7.45) ABG Total CO2 (22-28) mmol/L ABG O2 Saturation (95-98) % ABG Base Excess (-2.0-3.0) mmol/L ABG Hemoglobin (11.7-17.4) g/dL ABG Carboxyhemoglobin (0.5-1.5) % POC ABG HHb (Measured) (0.0-5.0) % ABG Methemoglobin (0.0-3.0) % Kevon Test A-a O2 Difference mm/Hg Respiratory Index Hgb O2 Saturation (95.0-98.0) % Vent Mode Mechanical Rate FiO2 % Tidal Volume PEEP Sodium (132-148) mmol/L Potassium (3.6-5.2) mmol/L Chloride (98-107) mmol/L Carbon Dioxide (22-30) mmol/L Anion Gap (10-20) BUN (7-17) mg/dL Creatinine (0.7-1.2) mg/dL Est GFR ( Amer) Est GFR (Non-Af Amer) POC Glucose (mg/dL) 136 H (65-110) mg/dL Random Glucose (65-105) mg/dL Calcium (8.6-10.4) mg/dl Phosphorus (2.5-4.5) mg/dL Magnesium (1.6-2.3) mg/dL Total Bilirubin (0.2-1.3) mg/dL AST (14-36) U/L ALT (9-52) U/L Alkaline Phosphatase (38-126) U/L Total Protein (6.3-8.3) g/dL Albumin (3.5-5.0) g/dL Globulin (2.2-3.9) gm/dL Albumin/Globulin Ratio (1.0-2.1) Vancomycin Trough 12.8 H (5.0-10.0) ug/mL 07/21/18 Range/Units 14:58 WBC (4.8-10.8) K/uL RBC (3.80-5.20) Mil/uL Hgb (11.0-16.0) g/dL Hct (34.0-47.0) % MCV (81.0-99.0) fL MCH (27.0-31.0) pg MCHC (33.0-37.0) g/dL RDW (11.5-14.5) % Plt Count (130-400) K/uL MPV (7.2-11.7) fL Neut % (Auto) (50.0-75.0) % Lymph % (Auto) (20.0-40.0) % Parke % (Auto) (0.0-10.0) % Eos % (Auto) (0.0-4.0) % Baso % (Auto) (0.0-2.0) % Neut # (Auto) (1.8-7.0) K/uL Lymph # (Auto) (1.0-4.3) K/uL Parke # (Auto) (0.0-0.8) K/uL Eos # (Auto) (0.0-0.7) K/uL Baso # (Auto) (0.0-0.2) K/uL PT 19.1 H (9.7-12.2) SECONDS INR 1.7 APTT 34 (21-34) SECONDS Puncture Site pCO2 (35-45) mm/Hg pO2 (80-100) mm/Hg HCO3 (21-28) mmol/L ABG pH (7.35-7.45) ABG Total CO2 (22-28) mmol/L ABG O2 Saturation (95-98) % ABG Base Excess (-2.0-3.0) mmol/L ABG Hemoglobin (11.7-17.4) g/dL ABG Carboxyhemoglobin (0.5-1.5) % POC ABG HHb (Measured) (0.0-5.0) % ABG Methemoglobin (0.0-3.0) % Kevon Test A-a O2 Difference mm/Hg Respiratory Index Hgb O2 Saturation (95.0-98.0) % Vent Mode Mechanical Rate FiO2 % Tidal Volume PEEP Sodium (132-148) mmol/L Potassium (3.6-5.2) mmol/L Chloride (98-107) mmol/L Carbon Dioxide (22-30) mmol/L Anion Gap (10-20) BUN (7-17) mg/dL Creatinine (0.7-1.2) mg/dL Est GFR ( Amer) Est GFR (Non-Af Amer) POC Glucose (mg/dL) (65-110) mg/dL Random Glucose (65-105) mg/dL Calcium (8.6-10.4) mg/dl Phosphorus (2.5-4.5) mg/dL Magnesium (1.6-2.3) mg/dL Total Bilirubin (0.2-1.3) mg/dL AST (14-36) U/L ALT (9-52) U/L Alkaline Phosphatase (38-126) U/L Total Protein (6.3-8.3) g/dL Albumin (3.5-5.0) g/dL Globulin (2.2-3.9) gm/dL Albumin/Globulin Ratio (1.0-2.1) Vancomycin Trough (5.0-10.0) ug/mL Laboratory Results - last 24 hr 07/21/18 07/21/18 07/21/18 14:58 17:31 17:32 WBC RBC Hgb Hct MCV MCH MCHC RDW Plt Count MPV Neut % (Auto) Lymph % (Auto) Parke % (Auto) Eos % (Auto) Baso % (Auto) Neut # (Auto) Lymph # (Auto) Parke # (Auto) Eos # (Auto) Baso # (Auto) PT 19.1 H INR 1.7 APTT 34 Puncture Site pCO2 pO2 HCO3 ABG pH ABG Total CO2 ABG O2 Saturation ABG Base Excess ABG Hemoglobin ABG Carboxyhemoglobin POC ABG HHb (Measured) ABG Methemoglobin Kevon Test A-a O2 Difference Respiratory Index Hgb O2 Saturation Vent Mode Mechanical Rate FiO2 Tidal Volume PEEP Sodium Potassium Chloride Carbon Dioxide Anion Gap BUN Creatinine Est GFR ( Amer) Est GFR (Non-Af Amer) POC Glucose (mg/dL) 136 H Random Glucose Calcium Phosphorus Magnesium Total Bilirubin AST ALT Alkaline Phosphatase Total Protein Albumin Globulin Albumin/Globulin Ratio Vancomycin Trough 12.8 H 07/21/18 07/21/18 07/22/18 21:26 23:28 05:31 WBC RBC Hgb Hct MCV MCH MCHC RDW Plt Count MPV Neut % (Auto) Lymph % (Auto) Parke % (Auto) Eos % (Auto) Baso % (Auto) Neut # (Auto) Lymph # (Auto) Parke # (Auto) Eos # (Auto) Baso # (Auto) PT INR APTT 51 H D Puncture Site L brac pCO2 40 pO2 97 HCO3 27.1 ABG pH 7.44 ABG Total CO2 28.4 H ABG O2 Saturation 98.7 H ABG Base Excess 2.8 ABG Hemoglobin 7.4 L ABG Carboxyhemoglobin 1.6 H POC ABG HHb (Measured) 1.3 ABG Methemoglobin 0.8 Kevon Test Na A-a O2 Difference 210.0 Respiratory Index 2.2 Hgb O2 Saturation 96.2 Vent Mode Prvc Mechanical Rate 10 FiO2 50.0 Tidal Volume 450 PEEP 5 Sodium Potassium Chloride Carbon Dioxide Anion Gap BUN Creatinine Est GFR ( Amer) Est GFR (Non-Af Amer) POC Glucose (mg/dL) 126 H Random Glucose Calcium Phosphorus Magnesium Total Bilirubin AST ALT Alkaline Phosphatase Total Protein Albumin Globulin Albumin/Globulin Ratio Vancomycin Trough 07/22/18 07/22/18 07/22/18 06:33 06:33 06:33 WBC 5.8 RBC 2.56 L Hgb 7.5 L Hct 23.0 L MCV 90.0 MCH 29.4 MCHC 32.7 L RDW 15.6 H Plt Count 169 MPV 9.8 Neut % (Auto) 71.2 Lymph % (Auto) 18.3 L Parke % (Auto) 7.1 Eos % (Auto) 2.9 Baso % (Auto) 0.5 Neut # (Auto) 4.2 Lymph # (Auto) 1.1 Parke # (Auto) 0.4 Eos # (Auto) 0.2 Baso # (Auto) 0.0 PT INR APTT 51 H Puncture Site pCO2 pO2 HCO3 ABG pH ABG Total CO2 ABG O2 Saturation ABG Base Excess ABG Hemoglobin ABG Carboxyhemoglobin POC ABG HHb (Measured) ABG Methemoglobin Kevon Test A-a O2 Difference Respiratory Index Hgb O2 Saturation Vent Mode Mechanical Rate FiO2 Tidal Volume PEEP Sodium 142 Potassium 3.7 Chloride 108 H Carbon Dioxide 27 Anion Gap 11 BUN 24 H Creatinine 1.1 Est GFR ( Amer) > 60 Est GFR (Non-Af Amer) 52 POC Glucose (mg/dL) Random Glucose 89 Calcium 8.1 L Phosphorus 4.0 Magnesium 2.1 Total Bilirubin 0.5 AST 24 ALT 36 Alkaline Phosphatase 187 H Total Protein 5.2 L Albumin 2.4 L Globulin 2.8 Albumin/Globulin Ratio 0.8 L Vancomycin Trough 10/20/18 06:33 WBC RBC Hgb Hct MCV MCH MCHC RDW Plt Count MPV Neut % (Auto) Lymph % (Auto) Parke % (Auto) Eos % (Auto) Baso % (Auto) Neut # (Auto) Lymph # (Auto) Parke # (Auto) Eos # (Auto) Baso # (Auto) PT INR APTT Puncture Site pCO2 pO2 HCO3 ABG pH ABG Total CO2 ABG O2 Saturation ABG Base Excess ABG Hemoglobin ABG Carboxyhemoglobin POC ABG HHb (Measured) ABG Methemoglobin Kevon Test A-a O2 Difference Respiratory Index Hgb O2 Saturation Vent Mode Mechanical Rate FiO2 Tidal Volume PEEP Sodium Potassium Chloride Carbon Dioxide Anion Gap BUN Creatinine Est GFR ( Amer) Est GFR (Non-Af Amer) POC Glucose (mg/dL) 92 Random Glucose Calcium Phosphorus Magnesium Total Bilirubin AST ALT Alkaline Phosphatase Total Protein Albumin Globulin Albumin/Globulin Ratio Vancomycin Trough Fingerstick Blood Sugar Results: 92 Review of Systems - Review of Systems Systems not reviewed;Unavailable: Intubated Assessment/Plan - Assessment and Plan (Free Text) Assessment: Patient admitted to ICU for diarrhea and sepsis with prolonged ICU course with intubation and cardic arrest. -Cardiac arrest: etiology unknown, currently on IV heparin 2nd lowe EF and clot in left aventricle continue current heart medications -ANoxic brain injury: avoid all sedation to evalute underlying mental condition -HYpoxic respiratory failure: continue ventilation to keep spo2 >92 and pH b/w 7.35-7.45, failed extubation x 2, will benefit from trach -Hyperthyroidism:continue methimazole -anemia: will transfuse 1 unit and titrate off norepi -DVT ppx IV heparin -PUD ppx protonix -prognosis poor as patient's mental status very poor (titrate off precedex) -cc time 32 minutes - Date & Time Date: 07/22/18 Time: 12:23
--- NOTE | 2018-07-22 16:17 | CP.PCM.PN ---
Subjective - Date & Time of Evaluation Date of Evaluation: 07/22/18 Time of Evaluation: 16:00 - Subjective Subjective: Hospitalist Progress Note Patient was seen and examined at 4:00 PM 07/22/18 ICU Bed 9 Patient is still intubated/on-vent as she failed CPAP trial/extubated and then re-intubated 07/19/18 Plan is for Tracheostomy for Tuesday07/24/18 and she is high risk for procedure: this was explained to Andrew who was at bedside Levophed is being held and blood pressure is stable Hgb/Hct at 7.5 and as tachycardic, 1 unit of PRBC is currently being transfused Blood Culture 07/20/18 is negative to date Urine Culture 07/20/18 shows NO growth Sputum Culture 07/20/18 shows Yeast She continues to have bowel movements that are pasty General: Intubated on vent. Awake but not responsive to questioning and does not follow commands HEENT: NCA, Pupils are round and reactive to light, EOMI, NO cervical/supraclavicular/submandibular lymphadenopathy Cardio: NS1 and NS2, NO M/R/G Respiratory: Diffuse course breath sounds bilaterallly are decreased and the lungs are more clear to auscultation GI: BSx4, Soft, ND, NO HSM, NO guarding, NO rebound tenderness Ext: Pulses are strong and equal, Capillary Refill is 2 seconds, NO edema noted Neuro: exam not possible at this time Skin: Blanchable erythema noted on the lower buttocks area and this area is macerated however no signs of infection. NO other ulceration noted on any of the ophelia prominences 1) Septic Shock Assessment/Plan * Infectious Disease (Dr. Brock) on case-->help appreciated * Tmax: 100.3 F (07/14/18) * Criteria: leukocytosis, tachycardia * Source: aspiration pneumonia and urinary tract infection * 07/07/18: Urine: E. Coli * 07/09/18: Urine: No growth * 07/07/18: Blood culture: no growth after 5 days X2 * 07/09/18 Blood culture: no growth after 5 days X2 * 07/14/18: blood cultures: no growth to date * 07/14/18: sputum culture: yeast species * 07/14/18: Urine culture: no growth * Blood Culture 07/20/18 is negative to date * Urine Culture 07/20/18 shows NO growth * Sputum Culture 07/20/18 shows Yeast * MRSA not detected * Antibiotics * Rocephin 2gm IVPB Q12H (07/14/18 through 07/20/18) * Meropenem 1 gm IV Q8H (active since 07/20/18) * Vancomycin 1 gram IVPB Q24H (being held since 07/20/18). 2) Acute Respiratory Failure Pulmonary Edema Bilateral Pleural Effusion and Consolidations Likely Secondary to Aspiration Pneumonia Assessment/Plan * Intubated * Tapered down to Solumedrol 20mg IVP daily * Duonebs RQ6H PRN wheezing * MRSA screen: not detected * Sputum culture 07/09/18, 07/12/18, 07/14/18: yeast * Mycoplasma negative * Legionella was negative * Influenza negative * HIV negative * CT Chest 07/15/18: Moderate to large bilateral pleural effusion and associated consolidations, pathcy grround-glass infiltrates/edema noted within bilateral upper lobes * Rocephin 2gm IVPB Q12H (07/14/18 through 07/20/18) * Meropenem 1 gm IV Q8H (active since 07/20/18) * Vancomycin 1 gram IVPB Q24H (being held since 07/20/18). * Bedside Thoracic U/S 07/17/18 did not reveal enough pleural effusion for Thoracentesis * Lasix 20 mg IV Q12H * Levophed Drip currently on hold 3) Ventricular Tachycardia NSTEMI Apical Thrombus Assessment/Plan * Code Blue 07/10: SVT==>VT required amiodarone, magnesium, one shock delivered * Cardiology Dr Francisco on case help appreciated * When patient is stabilized will need further cardiac workup * Echocardiogram (07/07/18): left ventricle systolic function is borderline, ejection fraction is 45-50%, no aortic regurgitation is present, mitral regurgitation is mild. Mild tricuspid regurgitation. mild pulmonary hypertension, mild pulmonic valvular regurgitation * Contrast Echo: Large apical hypokinesis a large 30 x 20 mm soft tissue apical sessile mass suggestive of thrombus overall fraction 40%. Obtain a HUBERT or/consider stress card myopathy if coronary disease is excluded further findings per report * Amiodarone discontinued * Monitor electrolytes * Heparin drip changed to Eliquis 2.5 mg 2x/day 07/18/18 and then patient placed back on Heparin Drip 07/21/18 for pending Tracheostomy on 07/24/18 * Aspirin 81 mg PO 1x/day. Considering patient already on Eliquis and to reduce chance of bleeding, Plavix was discontinued 07/18/18. * Switched from Cardizem to Propranolol 1mg IVP Q6H 4) Urinary Tract Infection Assessment/Plan * Infectious disease on board help appreciated * 07/07/18: Urine: E. Coli * 07/09/18: Urine: No growth * 07/14/18: Urine culture: No growth * Urine Culture 07/20/18: No growth 5) Diabetes Assessment/Plan * HgBA1c: 7.8 * Hypoglycemic protocol * Lantus 20 units subcutaneous at bedtime 6) Acute on Chronic Renal Failure Assessment/Plan * Nephrology (Dr. yHde) on board--> help appreciated * Patient will likely not need dialysis * Renal function continues to improve 7) Hyperthyroidism? Low TSH, and Free T4 Thyroid Storm Assessment/Plan * Note Thyroid studies taken before amiodarone was given (please advised this is not amiodarone induced her levels were abnormal prior) * Patient does not have prior thyroid history * Endocrinology (Dr. 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 She will need outpatient FNA Bx of the complex Left Lobe cyst (please see full report) * Methimazole 10mg PO TID * Propranolol 5 mg PO TID * Monitor LFTs 8) Anemia Likely Secondary to Chronic Diseases Assessment/Plan * Iron normal, TIBC low, Iron Saturation normal, Ferritin normal * Stool occult blood negative * B12 normal * Folate Normal * Being transfused 1 unit PRBC 07/22/18 * Patient is on Eliquis (which is being held and switched to Heparin Drip for pending Tracheostomy 07/24/18) for the Cardiac Apical Thrombus and on Aspirin for the NSTEMI (Plavix was discontinued 07/18/18) 9) Transminitis * Likely secondary to Sepsis and Amiodarone (which was discontinued) * Hepatitis serology negative * Slightly elevated from normal on 07/20/18 but could be secondary to MENTAL HEALTH ORDERLY/Code Blue 07/20/18 10) Vitamin D deficiency Assessment plan * 50,000 international units once a week for at least 8-12 weeks started on 07/11/18 11) Thrombocytopenia Assessment plan * Related to HIT, Sepsis, vs Methimazole? * Patient was on Heparin Drip through 07/18/18 and then started on Eliquis on this date * Plavix was disontinued 07/18/18 and she is on ASA * Fibrinogen elevated * Pending HIT/RUSTY * Currently normalized 12) 13 mm Left Adrenal Nodule * As seen on CT Chest 07/16/18 * Will need outpatient follow up for cross sectional imaging for better characterization 13) Hypernatremia * Free water 250 ml 3x/day via OGT * Na now normal 14) Prophylactic measure * Protonix 40mg PO BID * Eliquis 2.5 mg PO BID which has been changed back to Heparin Drip for pending Tracheostomy 07/24/18 * Bilateral SCDs * Glucerna Feedings via OGT * Subclavian line 07/14/18 Disposition: * Per ICU for vent weaning protocol * Diarrrhea: C. diff toxin 07/16/18 is negative. Now with soft/pasty bowel movements * When patient is more stable, will need cardiac workup: as per Cardiology NO HUBERT or Stress Test at this time * Bilateral UE and LE Venous Dopplers are negative for DVT * EEG showed moderate nonspecific diffuse disturbance of cortical activity in keeping with diffuse borges matter dysfunction and findings do not support a specific etiology * Tracheostomy is planned for Tuesday07/24/18 Updated Andrew who was at bedside [place] D.O. Objective - Vital Signs/Intake and Output Vital Signs (last 24 hours): Temp Pulse Resp BP Pulse Ox 98.1 F 80 14 114/59 L 98 07/22/18 14:33 07/22/18 14:33 07/22/18 14:33 07/22/18 14:33 07/22/18 14:25 Intake and Output: 07/22/18 07/22/18 06:59 18:59 Intake Total 959.8 645.6 Output Total 950 Balance 9.8 645.6 - Medications Medications: Current Medications Acetaminophen (Tylenol 325mg Tab) 650 mg PO Q6 PRN PRN Reason: Fever >100.4 F Last Admin: 07/19/18 21:04 Dose: 650 mg Albuterol/Ipratropium (Duoneb 3 Mg/0.5 Mg (3 Ml) Ud) 3 ml INH RQ6 [facility] Last Admin: 07/22/18 13:27 Dose: 3 ml Aspirin (Aspirin Chewable) 81 mg GT DAILY [facility] Last Admin: 07/22/18 11:00 Dose: 81 mg Ergocalciferol (Drisdol 50,000 Intl Units Cap) 1 cap PO Q7D [facility] Last Admin: 07/18/18 12:07 Dose: 1 cap Furosemide (Lasix) 20 mg IVP BID [facility] Last Admin: 07/22/18 11:00 Dose: 20 mg Vancomycin HCl 1 gm/ Sodium (Chloride) 250 mls @ 166.7 mls/hr IVPB Q24H [facility]; Protocol Last Admin: 07/19/18 17:00 Dose: 166.7 mls/hr Dexmedetomidine HCl 200 mcg/ (Sodium Chloride) 50 mls @ 2.91 mls/hr IV TITR PRN; Protocol PRN Reason: Sedation Last Titration: 07/21/18 22:15 Dose: 0.2 mcg/kg/hr, 2.91 mls/hr Norepinephrine Bitartrate 4 mg (/ Dextrose) 254 mls @ 15.24 mls/hr IV .[id number] PRN; Protocol PRN Reason: TITRATE PER MD ORDER Last Admin: 07/21/18 13:00 Dose: 2 mcg/min, 7.62 mls/hr Meropenem 1 gm/ Sodium (Chloride) 100 mls @ 100 mls/hr IVPB Q8H [facility]; Protocol Last Admin: 07/22/18 12:00 Dose: 100 mls/hr Heparin Sodium/Sodium Chloride (Heparin 65074 Units/250ml 1/2 Normal Saline) 25,000 units in 250 mls @ 6.804 mls/hr IV .Q24H PRN; Protocol PRN Reason: PROTOCOL Last Admin: 07/21/18 15:00 Dose: 6.804 mls/hr Insulin Aspart (Novolog) 0 unit SC Q6 [facility]; Protocol Last Admin: 07/22/18 13:00 Dose: Not Given Insulin Glargine (Lantus) 20 unit SC Q12 [facility] Last Admin: 07/22/18 11:00 Dose: 20 u Lactobacillus Acidophilus (Bacid Acidophilus) 1 cap PO Q12H [facility] Last Admin: 07/22/18 11:00 Dose: 1 cap Methimazole (Tapazole) 10 mg PO TID [facility] Last Admin: 07/22/18 13:05 Dose: 10 mg Pantoprazole Sodium (Protonix Susp) 40 mg PO DAILY [facility] Last Admin: 07/22/18 11:00 Dose: 40 mg Propranolol HCl (Inderal) 5 mg PO TID [facility] Last Admin: 07/22/18 13:04 Dose: 5 mg Rosuvastatin Calcium (Crestor) 2.5 mg PO HS [facility] Last Admin: 07/21/18 21:32 Dose: 2.5 mg - Labs Labs: 07/22/18 06:33 07/22/18 06:33 PT 19.1 SECONDS (9.7-12.2) H 07/21/18 14:58 INR 1.7 07/21/18 14:58 APTT 51 SECONDS (21-34) H 07/22/18 06:33
[2018-07-22] MEDS: Rosuvastatin Calcium 2.5 mg Tab PO SCH (22:19)
[2018-07-23] MEDS: Heparin25000 units/250ml 1/2NS 25,000 UNITS/250 ML BAG IV PRN (02:10)
[2018-07-23] MEDS: Meropenem 1 GM in Sodium Chloride 0.9% 100 ML IVPB SCH ×3 (02:53→20:19)
[2018-07-23] MEDS: (Novolog) Insulin Aspart, Recombinant 100 u/ml 10 ml vial SC SCH ×4 (06:00→19:52)
[2018-07-23 06:06] LABS: ABG ALLEN TEST POS; ARTERIAL BLOOD GAS HCO3 27.3 mmol/L (21-28); ARTERIAL BLOOD GAS O2 SAT 96.7 % (95-98); ARTERIAL BLOOD GAS PCO2 42 mm/Hg (35-45); ARTERIAL BLOOD GAS PH 7.43 (7.35-7.45); ARTERIAL BLOOD GAS PO2 66 mm/Hg (80-100); ARTERIAL BLOOD GAS TCO2 29.2 mmol/L (22-28)
[2018-07-23 06:25] LABS: BASO % 0.3 % (0.0-2.0); EOS # 0.1 K/uL (0.0-0.7); EOS % 2.4 % (0.0-4.0); HEMOGLOBIN 9.6 g/dL (11.0-16.0); LYMPH # 1.2 K/uL (1.0-4.3); LYMPH % 25.2 % (20.0-40.0); MEAN CELL VOLUME 87.5 fL (81.0-99.0); MEAN CORPUSCULAR HEMOGLOBIN 29.4 pg (27.0-31.0); MEAN CORPUSCULAR HGB CONC 33.6 g/dL (33.0-37.0); MONO # 0.4 K/uL (0.0-0.8); MONO % 9.1 % (0.0-10.0); NEUT # 2.9 K/uL (1.8-7.0); NRBC % 0.1 % (0.0-2.0); RBC 3.27 Mil/uL (3.80-5.20); RED CELL DISTRIBUTION WIDTH 15.5 % (11.5-14.5); WHITE BLOOD COUNT 4.6 K/uL (4.8-10.8)
[2018-07-23 06:41] LABS: ALB/GLOB RATIO 0.8 (1.0-2.1); ALBUMIN 2.5 g/dL (3.5-5.0); ALT/SGPT 36 U/L (9-52); AST/SGOT 28 U/L (14-36); BLOOD UREA NITROGEN 23 mg/dL (7-17); CALCIUM 8.3 mg/dl (8.6-10.4); GFR NON-AFRICAN AMERICAN 52
--- NOTE | 2018-07-23 08:02 | CP.PCM.PN ---
Addendum entered and electronically signed by Eric Morocho DO 07/23/18 08:04: - Constitutional Appears: No Acute Distress - Head Exam Head Exam: ATRAUMATIC, NORMOCEPHALIC - ENT Exam ENT Exam: Mucous Membranes Moist - Respiratory Exam Additional comments: Patient is intubated on mechanical ventilation - Cardiovascular Exam Cardiovascular Exam: RRR - GI/Abdominal Exam GI & Abdominal Exam: Soft. absent: Distended, Tenderness - Extremities Exam Extremities exam: Positive for: pedal pulses present - Neurological Exam Neurological exam: Altered - Psychiatric Exam Psychiatric exam: Flat Affect - Skin Skin Exam: Dry, Normal Color, Warm 52 female with respiratory distress on prolonged mechanical ventilation, unable to be weaned Plan: -plan for tracheostomy on Tuesday -Hold Heparin Drip for OR -medical optimization -Management as per ICU -Discussed with Dr. Ruiz Morocho PGY2 Original Note: Subjective - Date & Time of Evaluation Date of Evaluation: 07/23/18 Time of Evaluation: 08:02 - Subjective Subjective: General Surgery Note for Dr. Melchor Patient seen and examined at bedside. No acute event overnight. Patient is still intubated and sedated. Pressors were discontinued. FiO2 is down to 30%. ROS unobtainable due to clinical status. Objective - Vital Signs/Intake and Output Vital Signs (last 24 hours): Temp Pulse Resp BP Pulse Ox 98.9 F 84 10 L 124/66 95 07/23/18 04:00 07/23/18 07:31 07/23/18 07:31 07/23/18 07:31 07/23/18 07:31 Intake and Output: 07/23/18 07/23/18 06:59 18:59 Intake Total 600.4 41.7 Output Total 650 Balance -49.6 41.7 - Medications Medications: Current Medications Acetaminophen (Tylenol 325mg Tab) 650 mg PO Q6 PRN PRN Reason: Fever >100.4 F Last Admin: 07/19/18 21:04 Dose: 650 mg Albuterol/Ipratropium (Duoneb 3 Mg/0.5 Mg (3 Ml) Ud) 3 ml INH RQ6 [facility] Last Admin: 07/22/18 19:48 Dose: 3 ml Aspirin (Aspirin Chewable) 81 mg GT DAILY [facility] Last Admin: 07/22/18 11:00 Dose: 81 mg Ergocalciferol (Drisdol 50,000 Intl Units Cap) 1 cap PO Q7D [facility] Last Admin: 07/18/18 12:07 Dose: 1 cap Furosemide (Lasix) 20 mg IVP BID [facility] Last Admin: 07/22/18 18:55 Dose: 20 mg Vancomycin HCl 1 gm/ Sodium (Chloride) 250 mls @ 166.7 mls/hr IVPB Q24H [facility]; Protocol Last Admin: 07/19/18 17:00 Dose: 166.7 mls/hr Dexmedetomidine HCl 200 mcg/ (Sodium Chloride) 50 mls @ 2.91 mls/hr IV TITR PRN; Protocol PRN Reason: Sedation Last Titration: 07/21/18 22:15 Dose: 0.2 mcg/kg/hr, 2.91 mls/hr Norepinephrine Bitartrate 4 mg (/ Dextrose) 254 mls @ 15.24 mls/hr IV .[id number] PRN; Protocol PRN Reason: TITRATE PER MD ORDER Last Admin: 07/21/18 13:00 Dose: 2 mcg/min, 7.62 mls/hr Meropenem 1 gm/ Sodium (Chloride) 100 mls @ 100 mls/hr IVPB Q8H [facility]; Protocol Last Admin: 07/23/18 02:53 Dose: 100 mls/hr Heparin Sodium/Sodium Chloride (Heparin 84598 Units/250ml 1/2 Normal Saline) 25,000 units in 250 mls @ 6.804 mls/hr IV .Q24H PRN; Protocol PRN Reason: PROTOCOL Last Admin: 07/23/18 02:10 Dose: 6.804 mls/hr Insulin Aspart (Novolog) 0 unit SC Q6 [facility]; Protocol Last Admin: 07/23/18 06:00 Dose: Not Given Insulin Glargine (Lantus) 20 unit SC Q12 [facility] Last Admin: 07/22/18 22:16 Dose: 20 u Lactobacillus Acidophilus (Bacid Acidophilus) 1 cap PO Q12H [facility] Last Admin: 07/22/18 20:45 Dose: 1 cap Methimazole (Tapazole) 10 mg PO TID [facility] Last Admin: 07/22/18 18:55 Dose: 10 mg Pantoprazole Sodium (Protonix Susp) 40 mg PO DAILY [facility] Last Admin: 07/22/18 11:00 Dose: 40 mg Propranolol HCl (Inderal) 5 mg PO TID [facility] Last Admin: 07/22/18 18:56 Dose: 5 mg Rosuvastatin Calcium (Crestor) 2.5 mg PO HS [facility] Last Admin: 07/22/18 22:19 Dose: 2.5 mg - Labs Labs: 07/23/18 06:15 07/23/18 06:15 PT 19.1 SECONDS (9.7-12.2) H 07/21/18 14:58 INR 1.7 07/21/18 14:58 APTT 52 SECONDS (21-34) H 07/23/18 06:15
[2018-07-23] MEDS: Pantoprazole 40 mg Susp UD PO SCH (09:16)
[2018-07-23] MEDS: Propranolol 5 mg Tab PO SCH ×3 (09:16→17:12)
[2018-07-23] MEDS: (Lantus) Insulin Glargine, Recombinant SC SCH ×2 (09:17→22:46)
[2018-07-23] MEDS: Lactobacillus Acidophilus 500 MU Cap PO SCH ×2 (09:17→21:14)
--- NOTE | 2018-07-23 10:11 | RAD ---
Date of service: 07/23/2018 HISTORY: s/p intubation COMPARISON: 07/22/2018 FINDINGS: LUNGS: Moderate to severe venous congestion with prominent airspace opacification noted at the right lung base. Right hilar prominence. PLEURA: Moderate right and small left pleural effusion. CARDIOVASCULAR: No atherosclerotic calcification present Cardiomegaly. OSSEOUS STRUCTURES: Degenerative changes in the spine and shoulders. VISUALIZED UPPER ABDOMEN: Normal. OTHER FINDINGS: Lines and tubes in stable position. IMPRESSION: Moderate to severe venous congestion with prominent airspace opacification noted at the right lung base. Right hilar prominence. Moderate right and small left pleural effusion.
[2018-07-23 10:46] LABS: INR 1.3; PROTHROMBIN TIME 14.3 SECONDS (9.7-12.2)
[2018-07-23] MEDS: Albuterol-Ipratrop 3 mg / 0.5 (3 ml) UD INH SCH ×3 (11:22→20:15)
--- NOTE | 2018-07-23 11:23 | CP.PCM.PN ---
Subjective - Date & Time of Evaluation Date of Evaluation: 07/23/18 Time of Evaluation: 11:18 - Subjective Subjective: Patient seen and examined at bedside. Patient had no acute events overnight. off pressors, s/p 1 unit pRBC, awaiting trach/?peg on tuesday Objective - Vital Signs/Intake and Output Vital Signs (last 24 hours): Temp Pulse Resp BP Pulse Ox 97.8 F 90 27 H 110/67 99 07/23/18 08:00 07/23/18 11:02 07/23/18 11:02 07/23/18 11:07 07/23/18 11:02 Intake and Output: 07/23/18 07/23/18 06:59 18:59 Intake Total 600.4 125.1 Output Total 650 Balance -49.6 125.1 - Medications Medications: Current Medications Acetaminophen (Tylenol 325mg Tab) 650 mg PO Q6 PRN PRN Reason: Fever >100.4 F Last Admin: 07/19/18 21:04 Dose: 650 mg Albuterol/Ipratropium (Duoneb 3 Mg/0.5 Mg (3 Ml) Ud) 3 ml INH RQ6 [facility] Last Admin: 07/22/18 19:48 Dose: 3 ml Aspirin (Aspirin Chewable) 81 mg GT DAILY [facility] Last Admin: 07/23/18 09:17 Dose: 81 mg Ergocalciferol (Drisdol 50,000 Intl Units Cap) 1 cap PO Q7D [facility] Last Admin: 07/18/18 12:07 Dose: 1 cap Furosemide (Lasix) 20 mg IVP BID [facility] Last Admin: 07/23/18 11:07 Dose: 20 mg Vancomycin HCl 1 gm/ Sodium (Chloride) 250 mls @ 166.7 mls/hr IVPB Q24H [facility]; Protocol Last Admin: 07/19/18 17:00 Dose: 166.7 mls/hr Dexmedetomidine HCl 200 mcg/ (Sodium Chloride) 50 mls @ 2.91 mls/hr IV TITR PRN; Protocol PRN Reason: Sedation Last Titration: 07/21/18 22:15 Dose: 0.2 mcg/kg/hr, 2.91 mls/hr Norepinephrine Bitartrate 4 mg (/ Dextrose) 254 mls @ 15.24 mls/hr IV .[id number] PRN; Protocol PRN Reason: TITRATE PER MD ORDER Last Admin: 07/21/18 13:00 Dose: 2 mcg/min, 7.62 mls/hr Meropenem 1 gm/ Sodium (Chloride) 100 mls @ 100 mls/hr IVPB Q8H [facility]; Protocol Last Admin: 07/23/18 02:53 Dose: 100 mls/hr Heparin Sodium/Sodium Chloride (Heparin 46303 Units/250ml 1/2 Normal Saline) 25,000 units in 250 mls @ 6.804 mls/hr IV .Q24H PRN; Protocol PRN Reason: PROTOCOL Last Admin: 07/23/18 02:10 Dose: 6.804 mls/hr Insulin Aspart (Novolog) 0 unit SC Q6 [facility]; Protocol Last Admin: 07/23/18 06:00 Dose: Not Given Insulin Glargine (Lantus) 20 unit SC Q12 [facility] Last Admin: 07/23/18 09:17 Dose: 20 u Lactobacillus Acidophilus (Bacid Acidophilus) 1 cap PO Q12H [facility] Last Admin: 07/23/18 09:17 Dose: 1 cap Methimazole (Tapazole) 10 mg PO TID [facility] Last Admin: 07/23/18 09:16 Dose: 10 mg Pantoprazole Sodium (Protonix Susp) 40 mg PO DAILY [facility] Last Admin: 07/23/18 09:16 Dose: 40 mg Propranolol HCl (Inderal) 5 mg PO TID [facility] Last Admin: 07/23/18 09:16 Dose: 5 mg Rosuvastatin Calcium (Crestor) 2.5 mg PO HS [facility] Last Admin: 07/22/18 22:19 Dose: 2.5 mg - Labs Labs: 07/23/18 06:15 07/23/18 06:15 PT 14.3 SECONDS (9.7-12.2) H 07/23/18 10:26 INR 1.3 07/23/18 10:26 APTT 52 SECONDS (21-34) H 07/23/18 06:15 - Head Exam Head Exam: ATRAUMATIC, NORMAL INSPECTION, NORMOCEPHALIC - Eye Exam Eye Exam: Normal appearance - Respiratory Exam Respiratory Exam: Clear to Ausculation Bilateral - Cardiovascular Exam Cardiovascular Exam: REGULAR RHYTHM, +S1, +S2 - Extremities Exam Extremities Exam: Pedal Edema - Neurological Exam Neurological Exam: Altered. absent: Oriented x3 Assessment and Plan - Assessment and Plan (Free Text) Assessment: Patient admitted to ICU for diarrhea and sepsis with prolonged ICU course with intubation and cardic arrest. -Cardiac arrest: etiology unknown, currently on IV heparin 2nd lowe EF and clot in left aventricle continue current heart medications -ANoxic brain injury: off all sedation to evalute underlying mental condition -HYpoxic respiratory failure: continue ventilation to keep spo2 >92 and pH b/w 7.35-7.45, failed extubation x 2, will benefit from trach -Hyperthyroidism:continue methimazole -anemia: s/p transfuse 1 unit , off norepi -DVT ppx IV heparin -PUD ppx protonix -prognosis poor as patient's mental status not at baseline
--- NOTE | 2018-07-23 11:32 | CP.PCM.PN ---
Subjective - Date & Time of Evaluation Date of Evaluation: 07/23/18 Time of Evaluation: 11:15 - Subjective Subjective: Hospitalist Progress Note Patient was seen and examined at 11:15 AM 07/23/18 ICU Bed 9 with at bedside Patient is still intubated/on-vent as she failed CPAP trial/extubated and then re-intubated 07/19/18 Plan is for Tracheostomy for Tuesday07/24/18 and she is high risk for procedure: this was explained to Andrew who was at bedside Patient may also need PEG Tube because of the pending Tracheostomy. However Andrew would like to hold off on this at this time to see if the patient can be weened off the Trach once it is placed. Therefore we will hold off on getting GI involved at this time. Heparin Drip will be held at 4 AM 07/24/18 for tentatively planned Tracheostomy at 10 AM 07/24/18. Hgb/Hct at 7.5 on and she was transfused 1 unit of PRBC. Currently it is 9.6/28.6 Blood Culture 07/20/18 is negative to date Urine Culture 07/20/18 shows NO growth Sputum Culture 07/20/18 shows Yeast She continues to have bowel movements that are pasty General: Intubated on vent. Awake but not responsive to questioning and does not follow commands HEENT: NCA, Pupils are round and reactive to light, EOMI, NO cervical/supraclavicular/submandibular lymphadenopathy Cardio: NS1 and NS2, NO M/R/G Respiratory: Diffuse course breath sounds bilaterallly are decreased and the lungs are more clear to auscultation GI: BSx4, Soft, ND, NO HSM, NO guarding, NO rebound tenderness Ext: Pulses are strong and equal, Capillary Refill is 2 seconds, NO edema noted Neuro: exam not possible at this time Skin: Blanchable erythema noted on the lower buttocks area and this area is macerated however no signs of infection. NO other ulceration noted on any of the ophelia prominences 1) Septic Shock Assessment/Plan * Infectious Disease (Dr. Brock) on case-->help appreciated * Tmax: 100.3 F (07/14/18) * Criteria: leukocytosis, tachycardia * Source: aspiration pneumonia and urinary tract infection * 07/07/18: Urine: E. Coli * 07/09/18: Urine: No growth * 07/07/18: Blood culture: no growth after 5 days X2 * 07/09/18 Blood culture: no growth after 5 days X2 * 07/14/18: blood cultures: no growth to date * 07/14/18: sputum culture: yeast species * 07/14/18: Urine culture: no growth * Blood Culture 07/20/18 is negative to date * Urine Culture 07/20/18 shows NO growth * Sputum Culture 07/20/18 shows Yeast * MRSA not detected * Antibiotics * Rocephin 2gm IVPB Q12H (07/14/18 through 07/20/18) * Meropenem 1 gm IV Q8H (active since 07/20/18) * Vancomycin 1 gram IVPB Q24H (being held since 07/20/18).F/U Random Vancomycin Level 07/23/18 2) Acute Respiratory Failure Pulmonary Edema Bilateral Pleural Effusion and Consolidations Likely Secondary to Aspiration Pneumonia Assessment/Plan * Intubated * Tapered down to Solumedrol 20mg IVP daily * Duonebs RQ6H PRN wheezing * MRSA screen: not detected * Sputum culture 07/09/18, 07/12/18, 07/14/18: yeast * Mycoplasma negative * Legionella was negative * Influenza negative * HIV negative * CT Chest 07/15/18: Moderate to large bilateral pleural effusion and associated consolidations, pathcy grround-glass infiltrates/edema noted within bilateral upper lobes * Rocephin 2gm IVPB Q12H (07/14/18 through 07/20/18) * Meropenem 1 gm IV Q8H (active since 07/20/18) * Vancomycin 1 gram IVPB Q24H (being held since 07/20/18). F/U Random Vancomycin Level 07/23/18 * Bedside Thoracic U/S 07/17/18 did not reveal enough pleural effusion for Thoracentesis * Lasix 20 mg IV Q12H * Levophed Drip currently on hold 3) Ventricular Tachycardia NSTEMI Apical Thrombus Assessment/Plan * Code Blue 07/10: SVT==>VT required amiodarone, magnesium, one shock delivered * Cardiology Dr Francisco on case help appreciated * When patient is stabilized will need further cardiac workup * Echocardiogram (07/07/18): left ventricle systolic function is borderline, ejection fraction is 45-50%, no aortic regurgitation is present, mitral regurgitation is mild. Mild tricuspid regurgitation. mild pulmonary hypertension, mild pulmonic valvular regurgitation * Contrast Echo: Large apical hypokinesis a large 30 x 20 mm soft tissue apical sessile mass suggestive of thrombus overall fraction 40%. Obtain a HUBERT or/consider stress card myopathy if coronary disease is excluded further findings per report * Amiodarone discontinued * Monitor electrolytes * Heparin drip changed to Eliquis 2.5 mg 2x/day 07/18/18 and then patient placed back on Heparin Drip 07/21/18 for pending Tracheostomy on 07/24/18 * Aspirin 81 mg PO 1x/day. Considering patient already on Eliquis and to reduce chance of bleeding, Plavix was discontinued 07/18/18. * Switched from Cardizem to Propranolol 1mg IVP Q6H 4) Urinary Tract Infection Assessment/Plan * Infectious disease on board help appreciated * 07/07/18: Urine: E. Coli * 07/09/18: Urine: No growth * 07/14/18: Urine culture: No growth * Urine Culture 07/20/18: No growth 5) Diabetes Assessment/Plan * HgBA1c: 7.8 * Hypoglycemic protocol * Lantus 20 units subcutaneous at bedtime 6) Acute on Chronic Renal Failure Assessment/Plan * Nephrology (Dr. Hyde) on board--> help appreciated * Patient will likely not need dialysis * Renal function continues to improve 7) Hyperthyroidism? Low TSH, and Free T4 Thyroid Storm Assessment/Plan * Note Thyroid studies taken before amiodarone was given (please advised this is not amiodarone induced her levels were abnormal prior) * Patient does not have prior thyroid history * Endocrinology (Dr. 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 She will need outpatient FNA Bx of the complex Left Lobe cyst (please see full report) * Methimazole 10mg PO TID * Propranolol 5 mg PO TID * Monitor LFTs 8) Anemia Likely Secondary to Chronic Diseases Assessment/Plan * Iron normal, TIBC low, Iron Saturation normal, Ferritin normal * Stool occult blood negative * B12 normal * Folate Normal * Being transfused 1 unit PRBC 07/22/18 * Patient is on Eliquis (which is being held and switched to Heparin Drip for pending Tracheostomy 07/24/18) for the Cardiac Apical Thrombus and on Aspirin for the NSTEMI (Plavix was discontinued 07/18/18) 9) Transminitis * Likely secondary to Sepsis and Amiodarone (which was discontinued) * Hepatitis serology negative * Slightly elevated from normal on 07/20/18 but could be secondary to BIOMETRICS HEAD/Code Blue 07/20/18 10) Vitamin D deficiency Assessment plan * 50,000 international units once a week for at least 8-12 weeks started on 07/11/18 11) Thrombocytopenia Assessment plan * Related to HIT, Sepsis, vs Methimazole? * Patient was on Heparin Drip through 07/18/18 and then started on Eliquis on this date * Plavix was disontinued 07/18/18 and she is on ASA * Fibrinogen elevated * Pending HIT/RUSTY * Currently normalized 12) 13 mm Left Adrenal Nodule * As seen on CT Chest 07/16/18 * Will need outpatient follow up for cross sectional imaging for better characterization 13) Hypernatremia * Free water 250 ml 3x/day via OGT * Na now normal 14) Prophylactic measure * Protonix 40mg PO BID * Eliquis 2.5 mg PO BID which has been changed back to Heparin Drip for pending Tracheostomy 07/24/18 * Bilateral SCDs * Glucerna Feedings via OGT * Subclavian line 07/14/18 Disposition: * Diarrrhea: C. diff toxin 07/16/18 is negative. Now with soft/pasty bowel movements * When patient is more stable, will need cardiac workup: as per Cardiology NO HUBERT or Stress Test at this time * Bilateral UE and LE Venous Dopplers are negative for DVT * EEG showed moderate nonspecific diffuse disturbance of cortical activity in keeping with diffuse borges matter dysfunction and findings do not support a specific etiology * Tracheostomy is planned for Tuesday07/24/18 Updated Andrew who was at bedside and risks of Tracheostomy procedure were also explained: infection, bleeding, hoarseness/loss of voice. [place] D.O. Objective - Vital Signs/Intake and Output Vital Signs (last 24 hours): Temp Pulse Resp BP Pulse Ox 97.8 F 90 27 H 110/67 99 07/23/18 08:00 07/23/18 11:02 07/23/18 11:02 07/23/18 11:07 07/23/18 11:02 Intake and Output: 07/23/18 07/23/18 06:59 18:59 Intake Total 600.4 125.1 Output Total 650 Balance -49.6 125.1 - Medications Medications: Current Medications Acetaminophen (Tylenol 325mg Tab) 650 mg PO Q6 PRN PRN Reason: Fever >100.4 F Last Admin: 07/19/18 21:04 Dose: 650 mg Albuterol/Ipratropium (Duoneb 3 Mg/0.5 Mg (3 Ml) Ud) 3 ml INH RQ6 [facility] Last Admin: 07/22/18 19:48 Dose: 3 ml Aspirin (Aspirin Chewable) 81 mg GT DAILY [facility] Last Admin: 07/23/18 09:17 Dose: 81 mg Ergocalciferol (Drisdol 50,000 Intl Units Cap) 1 cap PO Q7D [facility] Last Admin: 07/18/18 12:07 Dose: 1 cap Furosemide (Lasix) 20 mg IVP BID [facility] Last Admin: 07/23/18 11:07 Dose: 20 mg Vancomycin HCl 1 gm/ Sodium (Chloride) 250 mls @ 166.7 mls/hr IVPB Q24H [facility]; Protocol Last Admin: 07/19/18 17:00 Dose: 166.7 mls/hr Dexmedetomidine HCl 200 mcg/ (Sodium Chloride) 50 mls @ 2.91 mls/hr IV TITR PRN; Protocol PRN Reason: Sedation Last Titration: 07/21/18 22:15 Dose: 0.2 mcg/kg/hr, 2.91 mls/hr Norepinephrine Bitartrate 4 mg (/ Dextrose) 254 mls @ 15.24 mls/hr IV .[id number] PRN; Protocol PRN Reason: TITRATE PER MD ORDER Last Admin: 07/21/18 13:00 Dose: 2 mcg/min, 7.62 mls/hr Meropenem 1 gm/ Sodium (Chloride) 100 mls @ 100 mls/hr IVPB Q8H [facility]; Protocol Last Admin: 07/23/18 02:53 Dose: 100 mls/hr Heparin Sodium/Sodium Chloride (Heparin 71111 Units/250ml 1/2 Normal Saline) 25,000 units in 250 mls @ 6.804 mls/hr IV .Q24H PRN; Protocol PRN Reason: PROTOCOL Last Admin: 07/23/18 02:10 Dose: 6.804 mls/hr Insulin Aspart (Novolog) 0 unit SC Q6 [facility]; Protocol Last Admin: 07/23/18 06:00 Dose: Not Given Insulin Glargine (Lantus) 20 unit SC Q12 [facility] Last Admin: 07/23/18 09:17 Dose: 20 u Lactobacillus Acidophilus (Bacid Acidophilus) 1 cap PO Q12H [facility] Last Admin: 07/23/18 09:17 Dose: 1 cap Methimazole (Tapazole) 10 mg PO TID [facility] Last Admin: 07/23/18 09:16 Dose: 10 mg Pantoprazole Sodium (Protonix Susp) 40 mg PO DAILY [facility] Last Admin: 07/23/18 09:16 Dose: 40 mg Propranolol HCl (Inderal) 5 mg PO TID [facility] Last Admin: 07/23/18 09:16 Dose: 5 mg Rosuvastatin Calcium (Crestor) 2.5 mg PO HS [facility] Last Admin: 07/22/18 22:19 Dose: 2.5 mg - Labs Labs: 07/23/18 06:15 07/23/18 06:15 PT 14.3 SECONDS (9.7-12.2) H 07/23/18 10:26 INR 1.3 07/23/18 10:26 APTT 52 SECONDS (21-34) H 07/23/18 06:15
[2018-07-23 13:13] LABS: SQUAMOUS EPITHIAL < 1 /hpf (0-5); URINE AMORPHOUS SEDIMENT RARE /ul (<OCC); URINE BACTERIA RARE (<OCC); URINE BILIRUBIN NEGATIVE (NEGATIVE); URINE BLOOD NEGATIVE (NEGATIVE); URINE CLARITY Clear (Clear); URINE COLOR Yellow (YELLOW); URINE GLUCOSE (UA) 1+ mg/dL (Normal); URINE LEUKOCYTE ESTERASE NEG Leu/uL (Negative); URINE PROTEIN 2+ mg/dL (NEGATIVE); URINE UROBILINOGEN NORMAL mg/dL (0.2-1.0)
--- NOTE | 2018-07-23 14:47 | CP.PCM.PN ---
Subjective - Date & Time of Evaluation Date of Evaluation: 07/23/18 Time of Evaluation: 10:00 - Subjective Subjective: afeb intubated on fio2 30% but failed weaning for trach in am Objective - Vital Signs/Intake and Output Vital Signs (last 24 hours): Temp Pulse Resp BP Pulse Ox 98.5 F 74 9 L 109/57 L 96 07/23/18 12:00 07/23/18 13:01 07/23/18 13:01 07/23/18 13:01 07/23/18 13:01 Intake and Output: 07/23/18 07/23/18 06:59 18:59 Intake Total 600.4 341.9 Output Total 650 750 Balance -49.6 -408.1 - Medications Medications: Current Medications Acetaminophen (Tylenol 325mg Tab) 650 mg PO Q6 PRN PRN Reason: Fever >100.4 F Last Admin: 07/19/18 21:04 Dose: 650 mg Albuterol/Ipratropium (Duoneb 3 Mg/0.5 Mg (3 Ml) Ud) 3 ml INH RQ6 [facility] Last Admin: 07/23/18 11:22 Dose: 3 ml Aspirin (Aspirin Chewable) 81 mg GT DAILY [facility] Last Admin: 07/23/18 09:17 Dose: 81 mg Ergocalciferol (Drisdol 50,000 Intl Units Cap) 1 cap PO Q7D [facility] Last Admin: 07/18/18 12:07 Dose: 1 cap Furosemide (Lasix) 20 mg IVP BID [facility] Last Admin: 07/23/18 11:07 Dose: 20 mg Vancomycin HCl 1 gm/ Sodium (Chloride) 250 mls @ 166.7 mls/hr IVPB Q24H [facility]; Protocol Last Admin: 07/19/18 17:00 Dose: 166.7 mls/hr Dexmedetomidine HCl 200 mcg/ (Sodium Chloride) 50 mls @ 2.91 mls/hr IV TITR PRN; Protocol PRN Reason: Sedation Last Titration: 07/21/18 22:15 Dose: 0.2 mcg/kg/hr, 2.91 mls/hr Norepinephrine Bitartrate 4 mg (/ Dextrose) 254 mls @ 15.24 mls/hr IV .[id number] PRN; Protocol PRN Reason: TITRATE PER MD ORDER Last Admin: 07/21/18 13:00 Dose: 2 mcg/min, 7.62 mls/hr Meropenem 1 gm/ Sodium (Chloride) 100 mls @ 100 mls/hr IVPB Q8H [facility]; Protocol Last Admin: 07/23/18 11:49 Dose: 100 mls/hr Heparin Sodium/Sodium Chloride (Heparin 39965 Units/250ml 1/2 Normal Saline) 25,000 units in 250 mls @ 6.804 mls/hr IV .Q24H PRN; Protocol PRN Reason: PROTOCOL Last Admin: 07/23/18 02:10 Dose: 6.804 mls/hr Insulin Aspart (Novolog) 0 unit SC Q6 [facility]; Protocol Last Admin: 07/23/18 12:49 Dose: Not Given Insulin Glargine (Lantus) 20 unit SC Q12 [facility] Last Admin: 07/23/18 09:17 Dose: 20 u Lactobacillus Acidophilus (Bacid Acidophilus) 1 cap PO Q12H [facility] Last Admin: 07/23/18 09:17 Dose: 1 cap Methimazole (Tapazole) 10 mg PO TID [facility] Last Admin: 07/23/18 13:24 Dose: 10 mg Pantoprazole Sodium (Protonix Susp) 40 mg PO DAILY [facility] Last Admin: 07/23/18 09:16 Dose: 40 mg Propranolol HCl (Inderal) 5 mg PO TID [facility] Last Admin: 07/23/18 13:11 Dose: Not Given Rosuvastatin Calcium (Crestor) 2.5 mg PO HS [facility] Last Admin: 07/22/18 22:19 Dose: 2.5 mg - Labs Labs: 07/23/18 06:15 07/23/18 06:15 PT 14.3 SECONDS (9.7-12.2) H 07/23/18 10:26 INR 1.3 07/23/18 10:26 APTT 52 SECONDS (21-34) H 07/23/18 06:15 - Constitutional Appears: Non-toxic, Chronically Ill - Head Exam Head Exam: NORMOCEPHALIC - Eye Exam Eye Exam: absent: Scleral icterus - ENT Exam ENT Exam: Mucous Membranes Dry - Neck Exam Neck Exam: absent: Lymphadenopathy - Respiratory Exam Respiratory Exam: Decreased Breath Sounds - Cardiovascular Exam Cardiovascular Exam: REGULAR RHYTHM - GI/Abdominal Exam GI & Abdominal Exam: Distended, Soft - Rectal Exam Rectal Exam: Deferred - Exam Exam: NORMAL INSPECTION Assessment and Plan (1) NEHA (acute kidney injury) Status: Acute (2) Acute renal failure Status: Acute (3) Acute respiratory failure Status: Acute (4) Aspiration pneumonia Status: Acute (5) Septic shock Status: Acute (6) Urinary tract infection Status: Acute (7) Diabetes mellitus Status: Chronic
[2018-07-23] MEDS ORDERED: Potassium Chloride 20 mEq/15 ml LIQ UD NG ONE (20:18)
[2018-07-23] MEDS ORDERED: Magnesium Sulfate 1 gm in D5W 1 GM/100 ML BAG IVPB ONE (20:26)
[2018-07-23] MEDS: Rosuvastatin Calcium 2.5 mg Tab PO SCH (21:14)
[2018-07-24] MEDS: Albuterol-Ipratrop 3 mg / 0.5 (3 ml) UD INH SCH ×4 (01:09→20:24)
[2018-07-24] MEDS: (Novolog) Insulin Aspart, Recombinant 100 u/ml 10 ml vial SC SCH ×4 (01:19→18:05)
[2018-07-24] MEDS: Meropenem 1 GM in Sodium Chloride 0.9% 100 ML IVPB SCH ×3 (03:05→20:15)
[2018-07-24 03:06] LABS: BASO % 0.9 % (0.0-2.0); EOS # 0.1 K/uL (0.0-0.7); EOS % 2.8 % (0.0-4.0); HEMOGLOBIN 9.9 g/dL (11.0-16.0); LYMPH # 1.2 K/uL (1.0-4.3); LYMPH % 23.3 % (20.0-40.0); MEAN CELL VOLUME 87.7 fL (81.0-99.0); MEAN CORPUSCULAR HEMOGLOBIN 29.1 pg (27.0-31.0); MEAN CORPUSCULAR HGB CONC 33.2 g/dL (33.0-37.0); MEAN PLATELET VOLUME 8.7 fL (7.2-11.7); MONO # 0.5 K/uL (0.0-0.8); MONO % 10.9 % (0.0-10.0); NEUT # 3.1 K/uL (1.8-7.0); NEUT % 62.1 % (50.0-75.0); RBC 3.4 Mil/uL (3.80-5.20); RED CELL DISTRIBUTION WIDTH 15.6 % (11.5-14.5)
[2018-07-24 03:27] LABS: ALB/GLOB RATIO 0.8 (1.0-2.1); ALBUMIN 2.7 g/dL (3.5-5.0); ALT/SGPT 40 U/L (9-52); AST/SGOT 46 U/L (14-36); BLOOD UREA NITROGEN 24 mg/dL (7-17); CALCIUM 8.5 mg/dl (8.6-10.4); GFR NON-AFRICAN AMERICAN 52
[2018-07-24 04:49] LABS: ARTERIAL BLOOD GAS HCO3 26.3 mmol/L (21-28); ARTERIAL BLOOD GAS O2 SAT 95.6 % (95-98); ARTERIAL BLOOD GAS PCO2 41 mm/Hg (35-45); ARTERIAL BLOOD GAS PH 7.42 (7.35-7.45); ARTERIAL BLOOD GAS PO2 66 mm/Hg (80-100); ARTERIAL BLOOD GAS TCO2 27.9 mmol/L (22-28)
[2018-07-24] MEDS: Dexmedetomidine Hydrochloride 200 MCG in Sodium Chloride 0.9% 48 ML IV PRN (08:20)
--- NOTE | 2018-07-24 08:58 | RAD ---
Date of service: 07/24/2018 HISTORY: s/p intubation COMPARISON: No prior. FINDINGS: LUNGS: Lines and tubes in stable position. Mild venous congestion. Mild patchy increased markings at the lung bases. Nodular density at the right costophrenic angle. Biapical pleural thickening PLEURA: No significant pleural effusion identified, no pneumothorax apparent. CARDIOVASCULAR: Aortic atherosclerotic calcification present Normal. OSSEOUS STRUCTURES: No significant abnormalities. VISUALIZED UPPER ABDOMEN: Normal. OTHER FINDINGS: None. IMPRESSION: Lines and tubes in stable position. Mild venous congestion. Mild patchy increased markings at the lung bases. Nodular density at the right costophrenic angle. Biapical pleural thickening
[2018-07-24] MEDS: (Lantus) Insulin Glargine, Recombinant SC SCH ×3 (09:09→22:30)
[2018-07-24] MEDS: Propranolol 5 mg Tab PO SCH ×3 (09:12→17:30)
[2018-07-24] MEDS: Lactobacillus Acidophilus 500 MU Cap PO SCH ×2 (09:12→20:05)
[2018-07-24] MEDS: Pantoprazole 40 mg Susp UD PO SCH (09:12)
[2018-07-24] MEDS: Multiple Vitamins Oral Solution PO SCH (09:12)
--- NOTE | 2018-07-24 11:38 | CP.PCM.PN ---
Subjective - Date & Time of Evaluation Date of Evaluation: 07/24/18 Time of Evaluation: 09:00 - Subjective Subjective: intubated in ICU iv rx renewed for trach Objective - Vital Signs/Intake and Output Vital Signs (last 24 hours): Temp Pulse Resp BP Pulse Ox 98.2 F 70 10 L 98/58 L 100 07/24/18 10:58 07/24/18 11:07 07/24/18 11:07 07/24/18 11:13 07/24/18 11:07 Intake and Output: 07/24/18 07/24/18 06:59 18:59 Intake Total 915.3 131 Output Total 2150 200 Balance -1234.7 -69 - Medications Medications: Current Medications Acetaminophen (Tylenol 325mg Tab) 650 mg PO Q6 PRN PRN Reason: Fever >100.4 F Last Admin: 07/19/18 21:04 Dose: 650 mg Albuterol/Ipratropium (Duoneb 3 Mg/0.5 Mg (3 Ml) Ud) 3 ml INH RQ6 [facility] Last Admin: 07/24/18 01:09 Dose: 3 ml Ascorbic Acid (Vitamin C 500 Mg Tab) 1,000 mg NG DAILY [facility] Last Admin: 07/24/18 09:11 Dose: 1,000 mg Aspirin (Aspirin Chewable) 81 mg GT DAILY [facility] Last Admin: 07/23/18 09:17 Dose: 81 mg Ergocalciferol (Drisdol 50,000 Intl Units Cap) 1 cap PO Q7D [facility] Last Admin: 07/18/18 12:07 Dose: 1 cap Furosemide (Lasix) 20 mg IVP BID [facility] Last Admin: 07/24/18 11:13 Dose: Not Given Dexmedetomidine HCl 200 mcg/ (Sodium Chloride) 50 mls @ 2.91 mls/hr IV TITR PRN; Protocol PRN Reason: Sedation Last Titration: 07/24/18 10:00 Dose: 0.25 mcg/kg/hr, 3.63 mls/hr Meropenem 1 gm/ Sodium (Chloride) 100 mls @ 100 mls/hr IVPB Q8H [facility]; Protocol Last Admin: 07/24/18 03:05 Dose: 100 mls/hr Heparin Sodium/Sodium Chloride (Heparin 02164 Units/250ml 1/2 Normal Saline) 25,000 units in 250 mls @ 6.804 mls/hr IV .Q24H PRN; Protocol PRN Reason: PROTOCOL Last Infusion: 07/24/18 04:00 Dose: 6.804 mls/hr Dextrose (Dextrose 10% In Water) 1,000 mls @ 30 mls/hr IV .Q24H [facility] Last Admin: 07/24/18 08:06 Dose: 30 mls/hr Insulin Aspart (Novolog) 0 unit SC Q6 [facility]; Protocol Last Admin: 07/24/18 06:36 Dose: Not Given Insulin Glargine (Lantus) 20 unit SC Q12 [facility] Last Admin: 07/24/18 09:09 Dose: Not Given Lactobacillus Acidophilus (Bacid Acidophilus) 1 cap PO Q12H [facility] Last Admin: 07/24/18 09:12 Dose: 1 cap Methimazole (Tapazole) 10 mg PO TID [facility] Last Admin: 07/24/18 09:12 Dose: 10 mg Multivitamins/Vitamin C (Multi-Delyn Liquid) 5 ml PO DAILY [facility] Last Admin: 07/24/18 09:12 Dose: 5 ml Pantoprazole Sodium (Protonix Susp) 40 mg PO DAILY [facility] Last Admin: 07/24/18 09:12 Dose: 40 mg Propranolol HCl (Inderal) 5 mg PO TID [facility] Last Admin: 07/24/18 09:12 Dose: 5 mg Rosuvastatin Calcium (Crestor) 2.5 mg PO HS [facility] Last Admin: 07/23/18 21:14 Dose: 2.5 mg - Labs Labs: 07/24/18 02:56 07/24/18 02:56 PT 14.3 SECONDS (9.7-12.2) H 07/23/18 10:26 INR 1.3 07/23/18 10:26 APTT 57 SECONDS (21-34) H D 07/24/18 02:56 Assessment and Plan (1) NEHA (acute kidney injury) Status: Acute (2) Acute renal failure Status: Acute (3) Acute respiratory failure Status: Acute (4) Aspiration pneumonia Status: Acute (5) Septic shock Status: Acute (6) Urinary tract infection Status: Acute (7) Diabetes mellitus Status: Chronic
[2018-07-24] MEDS ORDERED: Lidocaine/Epinephrine 1% 1:100000 10 ML IJ ONE (11:52)
[2018-07-24] MEDS ORDERED: Phenylephrine 10 mg/ml Inj ONE (12:00)
[2018-07-24] MEDS ORDERED: Rocuronium 10 mg/ml (5 ml) ONE (12:02)
--- NOTE | 2018-07-24 12:42 | PCM.SURG1 ---
Surgeon's Initial Post Op Note - Surgeon's Notes Surgeon: Dr. Melchor Help Desk Intern: Aruna Stapleton PGY3 Type of Anesthesia: General Endo, Local Anesthesia Administered By: Keaton Pre-Operative Diagnosis: respiratory failure Operative Findings: good end title Co2 Post-Operative Diagnosis: Same Operation Performed: Open tracheostomy Specimen/Specimens Removed: none Estimated Blood Loss: EBL {In ML}: 5 Blood Products Given: N/A Drains Used: No Drains Post-Op Condition: Good Date of Surgery/Procedure: 07/24/18 Time of Surgery/Procedure: 12:44
--- NOTE | 2018-07-24 13:28 | RAD ---
Date of service: 07/24/2018 HISTORY: trachesotomy/ NGT placement COMPARISON: Multiple serial examinations preceding the most recent study: July 24, 2018 06:59. FINDINGS: LUNGS: Worsening infiltrates. PLEURA: No significant pleural effusion identified, no pneumothorax apparent. CARDIOVASCULAR: No atherosclerotic calcification present Venous access catheter in stable, satisfactory position. OSSEOUS STRUCTURES: No significant abnormalities. VISUALIZED UPPER ABDOMEN: Normal. OTHER FINDINGS: Stable, satisfactory position of tracheostomy device. Satisfactory position of nasogastric tube. IMPRESSION: Worsening infiltrates. Satisfactory position of recently placed tracheostomy device. Satisfactory position of remaining support apparatus including venous access catheter and recently placed nasogastric tube.
[2018-07-24] MEDS: Heparin25000 units/250ml 1/2NS 25,000 UNITS/250 ML BAG IV PRN (13:52)
--- NOTE | 2018-07-24 13:52 | CP.CCUPN ---
Addendum entered and electronically signed by Brayan Gonzalez DO 07/24/18 15:00: Addendum to Critical Care Progress Note: Patient appeared to be in pain, she is status-post tracheostomy today. Morphine 2mg IV Q8H PRN for moderate pain ordered. Patent seen and case discussed with Soniya Tarango PGY1 Original Note: <Brayan Gonzalez - Last Filed: 07/24/18 14:52> CCU Subjective - Physician Review Events Since Last Encounter (Free Text): 07/24/18 13:51 No acute events overnight. Subjective (Free Text): 07/24/18 13:52 PGY1 Critical Care Consult Note for Soniya Tarango. Patient was seen at bedside this morning. No acute events overnight. Patient wakes up to name. Patient is able to localize to pain. Patient appeared to be more agitate this morning, per Nurse. Patient underwent trach placement today with Dr. Melchor. Critical Care Time Spent (in minutes): 35 CCU Objective - Vital Signs / Intake & Output Vital Signs (Last 4 hours): Vital Signs Temp Pulse Resp BP Pulse Ox 07/24/18 13:28 88 14 128/73 99 07/24/18 13:08 83 10 L 120/72 100 07/24/18 13:00 85 12 100 07/24/18 12:38 74 11 L 105/60 100 07/24/18 11:13 98/58 L 07/24/18 11:07 70 10 L 98/58 L 100 07/24/18 11:00 60 10 L 80/41 L 100 07/24/18 10:58 98.2 F 07/24/18 10:00 69 10 L 95/48 L 95 Intake and Output (Last 8hrs): Intake & Output 07/23/18 07/24/18 07/24/18 22:59 06:59 14:59 Intake Total 950.3 198.5 437 Output Total 1450 950 200 Balance -499.7 -751.5 237 Weight 104 lb 6.4 oz Intake: IV 322 Intake, IV Amount 360.3 133.5 90 Right Hand 60.3 33.5 Right Proximal Port 300 100 90 Subclavian Tube Feeding 315 35 Other 275 30 25 Output: Urine 1450 950 200 Urethral ([place]) 1450 950 200 - Physical Exam Head: Positive for: Atraumatic, Normocephalic Pupils: Positive for: PERRL. Negative for: Sluggish, Pinpoint Extroacular Muscles: Positive for: EOMI. Negative for: Gaze Palsy Conjunctiva: Positive for: Normal. Negative for: Injected, Icteric Mouth: Positive for: Moist Mucous Membranes Nose (External): Positive for: Atraumatic. Negative for: Abrasion, Contusion, Laceration Nose (Internal): Positive for: No Active Bleeding. Negative for: Epistaxis Neck: Positive for: Normal Range of Motion, Trachea Midline. Negative for: JVD Respiratory/Chest: Positive for: Good Air Exchange, Rhonchi (mild ronchi in bilateral bases), Other (intubated and ventilated). Negative for: Wheezes, Rales Cardiovascular: Positive for: Normal S1, S2, Peripheal Pulses Present, Tachyca rdic. Negative for: Regular Rate and Rhythm Abdomen: Positive for: Normal Bowel Sounds. Negative for: Tenderness, Distention, Rebound, Guarding Upper Extremity: Positive for: Normal Inspection, NORMAL PULSES. Negative for: Cyanosis, Edema Lower Extremity: Positive for: Normal Inspection. Negative for: Edema, CALF TENDERNESS Neurological: Positive for: Other (weaning from sedation, intermittently opens eyes and tracks staff across room, but minimal spontaneous movements, not following verbal or pantomimed commands) Skin: Positive for: Warm, Dry, Normal Color Psychiatric: Positive for: Alert - Medications Active Medications: Active Medications Generic Name Dose Route Start Last Admin Trade Name Freq PRN Reason Stop Dose Admin Acetaminophen 650 mg 07/12/18 15:57 07/19/18 21:04 Tylenol 325mg Tab PO 650 mg Q6 PRN Administration Fever >100.4 F Albuterol/Ipratropium 3 ml 07/14/18 20:00 07/24/18 01:09 Duoneb 3 Mg/0.5 Mg (3 Ml) Ud INH 3 ml RQ6 MANOLO Administration Ascorbic Acid 1,000 mg 07/24/18 10:00 07/24/18 09:11 Vitamin C 500 Mg Tab NG 1,000 mg DAILY MANOLO Administration Aspirin 81 mg 07/17/18 10:00 07/23/18 09:17 Aspirin Chewable GT 81 mg DAILY MANOLO Administration Ergocalciferol 1 cap 07/11/18 12:45 07/18/18 12:07 Drisdol 50,000 Intl Units Cap PO 1 cap Q7D MANOLO Administration Furosemide 20 mg 07/17/18 18:00 07/24/18 11:13 Lasix IVP Not Given BID MANOLO Dexmedetomidine HCl 200 mcg/ 50 mls @ 2.91 mls/hr 07/15/18 19:55 07/24/18 11:30 Sodium Chloride IV 0 mcg/kg/hr TITR PRN 0 mls/hr Sedation Titration Protocol 0.2 MCG/KG/HR Meropenem 1 gm/ Sodium 100 mls @ 100 mls/hr 07/20/18 11:45 07/24/18 12:57 Chloride IVPB 100 mls/hr Q8H MANOLO Administration Protocol Heparin Sodium/Sodium Chloride 25,000 units in 250 mls @ 6.804 mls/hr 07/21/18 10:19 07/24/18 04:00 Heparin 77603 Units/250ml 1/2 Normal Saline IV 6.804 mls/hr .Q24H PRN Infusion PROTOCOL Protocol 12 UNITS/KG/HR Dextrose 1,000 mls @ 30 mls/hr 07/24/18 08:00 07/24/18 08:06 Dextrose 10% In Water IV 30 mls/hr .Q24H MANOLO Administration Insulin Aspart 0 unit 07/11/18 08:28 07/24/18 12:56 Novolog SC Not Given Q6 MANOLO Protocol Insulin Glargine 20 unit 07/17/18 09:46 07/24/18 09:09 Lantus SC Not Given Q12 MANOLO Lactobacillus Acidophilus 1 cap 07/08/18 20:00 07/24/18 09:12 Bacid Acidophilus PO 1 cap Q12H MANOLO Administration Methimazole 10 mg 07/11/18 10:00 07/24/18 09:12 Tapazole PO 10 mg TID MANOLO Administration Multivitamins/Vitamin C 5 ml 07/24/18 10:00 07/24/18 09:12 Multi-Delyn Liquid PO 5 ml DAILY MANOLO Administration Pantoprazole Sodium 40 mg 07/20/18 10:00 07/24/18 09:12 Protonix Susp PO 40 mg DAILY MANOLO Administration Propranolol HCl 5 mg 07/16/18 10:00 07/24/18 09:12 Inderal PO 5 mg TID MANOLO Administration Rosuvastatin Calcium 2.5 mg 07/13/18 22:00 07/23/18 21:14 Crestor PO 2.5 mg HS MANOLO Administration - Patient Studies Lab Studies: Microbiology Studies 07/20/18 11:18 Blood Culture - Preliminary Blood-Thru Central Line NO GROWTH AFTER 4 DAYS 07/20/18 11:18 Blood Culture - Preliminary Blood-Thru Central Line NO GROWTH AFTER 4 DAYS 07/23/18 13:04 Urine Culture - Final Urine,[place] No Growth (<1,000 CFU/ML) Lab Studies 07/24/18 07/24/18 07/24/18 Range/Units 10: 06:35 04:30 WBC (4.8-10.8) K/uL RBC (3.80-5.20) Mil/uL Hgb (11.0-16.0) g/dL Hct (34.0-47.0) % MCV (81.0-99.0) fL MCH (27.0-31.0) pg MCHC (33.0-37.0) g/dL RDW (11.5-14.5) % Plt Count (130-400) K/uL MPV (7.2-11.7) fL Neut % (Auto) (50.0-75.0) % Lymph % (Auto) (20.0-40.0) % Pacific % (Auto) (0.0-10.0) % Eos % (Auto) (0.0-4.0) % Baso % (Auto) (0.0-2.0) % Neut # (Auto) (1.8-7.0) K/uL Lymph # (Auto) (1.0-4.3) K/uL Pacific # (Auto) (0.0-0.8) K/uL Eos # (Auto) (0.0-0.7) K/uL Baso # (Auto) (0.0-0.2) K/uL APTT (21-34) SECONDS Puncture Site Rb pCO2 41 (35-45) mm/Hg pO2 66 L (80-100) mm/Hg HCO3 26.3 (21-28) mmol/L ABG pH 7.42 (7.35-7.45) ABG Total CO2 27.9 (22-28) mmol/L ABG O2 Saturation 95.6 (95-98) % ABG Base Excess 1.9 (-2.0-3.0) mmol/L Kevon Test Na ABG Potassium 4.4 (3.6-5.2) mmol/L A-a O2 Difference 97.0 mm/Hg Respiratory Index 1.5 Glucose 69 (65-105) mg/dl Lactate 0.7 (0.7-2.1) mmol/L Vent Mode Prvc Mechanical Rate 10 FiO2 30.0 % Tidal Volume 440 PEEP 5 Sodium 146.0 (132-148) mmol/L Potassium (3.6-5.2) mmol/L Chloride 114.0 H (98-107) mmol/L Carbon Dioxide (22-30) mmol/L Anion Gap (10-20) BUN (7-17) mg/dL Creatinine (0.7-1.2) mg/dL Est GFR ( Amer) Est GFR (Non-Af Amer) POC Glucose (mg/dL) 75 (65-110) mg/dL Random Glucose (65-105) mg/dL Calcium (8.6-10.4) mg/dl Phosphorus (2.5-4.5) mg/dL Magnesium (1.6-2.3) mg/dL Total Bilirubin (0.2-1.3) mg/dL AST (14-36) U/L ALT (9-52) U/L Alkaline Phosphatase (38-126) U/L Total Protein (6.3-8.3) g/dL Albumin (3.5-5.0) g/dL Globulin (2.2-3.9) gm/dL Albumin/Globulin Ratio (1.0-2.1) Arterial Blood Potassium 4.4 (3.6-5.2) mmol/L Urine HCG, Qual Negative (NEGATIVE) C. difficile Ag & Toxin (NEGATIVE) 07/24/18 07/24/18 07/24/18 Range/Units 02:56 02:56 02:56 WBC 5.0 (4.8-10.8) K/uL RBC 3.40 L (3.80-5.20) Mil/uL Hgb 9.9 L (11.0-16.0) g/dL Hct 29.8 L (34.0-47.0) % MCV 87.7 (81.0-99.0) fL MCH 29.1 (27.0-31.0) pg MCHC 33.2 (33.0-37.0) g/dL RDW 15.6 H (11.5-14.5) % Plt Count 217 (130-400) K/uL MPV 8.7 (7.2-11.7) fL Neut % (Auto) 62.1 (50.0-75.0) % Lymph % (Auto) 23.3 (20.0-40.0) % Pacific % (Auto) 10.9 H (0.0-10.0) % Eos % (Auto) 2.8 (0.0-4.0) % Baso % (Auto) 0.9 (0.0-2.0) % Neut # (Auto) 3.1 (1.8-7.0) K/uL Lymph # (Auto) 1.2 (1.0-4.3) K/uL Pacific # (Auto) 0.5 (0.0-0.8) K/uL Eos # (Auto) 0.1 (0.0-0.7) K/uL Baso # (Auto) 0.0 (0.0-0.2) K/uL APTT 57 H D (21-34) SECONDS Puncture Site pCO2 (35-45) mm/Hg pO2 (80-100) mm/Hg HCO3 (21-28) mmol/L ABG pH (7.35-7.45) ABG Total CO2 (22-28) mmol/L ABG O2 Saturation (95-98) % ABG Base Excess (-2.0-3.0) mmol/L Kevon Test ABG Potassium (3.6-5.2) mmol/L A-a O2 Difference mm/Hg Respiratory Index Glucose (65-105) mg/dl Lactate (0.7-2.1) mmol/L Vent Mode Mechanical Rate FiO2 % Tidal Volume PEEP Sodium 147 (132-148) mmol/L Potassium 4.9 (3.6-5.2) mmol/L Chloride 113 H (98-107) mmol/L Carbon Dioxide 30 (22-30) mmol/L Anion Gap 8 L (10-20) BUN 24 H (7-17) mg/dL Creatinine 1.1 (0.7-1.2) mg/dL Est GFR ( Amer) > 60 Est GFR (Non-Af Amer) 52 POC Glucose (mg/dL) (65-110) mg/dL Random Glucose 87 (65-105) mg/dL Calcium 8.5 L (8.6-10.4) mg/dl Phosphorus 2.1 L (2.5-4.5) mg/dL Magnesium 3.0 H (1.6-2.3) mg/dL Total Bilirubin 0.7 (0.2-1.3) mg/dL AST 46 H D (14-36) U/L ALT 40 (9-52) U/L Alkaline Phosphatase 308 H D (38-126) U/L Total Protein 6.0 L (6.3-8.3) g/dL Albumin 2.7 L (3.5-5.0) g/dL Globulin 3.3 (2.2-3.9) gm/dL Albumin/Globulin Ratio 0.8 L (1.0-2.1) Arterial Blood Potassium (3.6-5.2) mmol/L Urine HCG, Qual (NEGATIVE) C. difficile Ag & Toxin (NEGATIVE) 07/23/18 07/23/18 07/23/18 Range/Units 23:33 17:58 13:04 WBC (4.8-10.8) K/uL RBC (3.80-5.20) Mil/uL Hgb (11.0-16.0) g/dL Hct (34.0-47.0) % MCV (81.0-99.0) fL MCH (27.0-31.0) pg MCHC (33.0-37.0) g/dL RDW (11.5-14.5) % Plt Count (130-400) K/uL MPV (7.2-11.7) fL Neut % (Auto) (50.0-75.0) % Lymph % (Auto) (20.0-40.0) % Pacific % (Auto) (0.0-10.0) % Eos % (Auto) (0.0-4.0) % Baso % (Auto) (0.0-2.0) % Neut # (Auto) (1.8-7.0) K/uL Lymph # (Auto) (1.0-4.3) K/uL Pacific # (Auto) (0.0-0.8) K/uL Eos # (Auto) (0.0-0.7) K/uL Baso # (Auto) (0.0-0.2) K/uL APTT (21-34) SECONDS Puncture Site pCO2 (35-45) mm/Hg pO2 (80-100) mm/Hg HCO3 (21-28) mmol/L ABG pH (7.35-7.45) ABG Total CO2 (22-28) mmol/L ABG O2 Saturation (95-98) % ABG Base Excess (-2.0-3.0) mmol/L Kevon Test ABG Potassium (3.6-5.2) mmol/L A-a O2 Difference mm/Hg Respiratory Index Glucose (65-105) mg/dl Lactate (0.7-2.1) mmol/L Vent Mode Mechanical Rate FiO2 % Tidal Volume PEEP Sodium (132-148) mmol/L Potassium (3.6-5.2) mmol/L Chloride (98-107) mmol/L Carbon Dioxide (22-30) mmol/L Anion Gap (10-20) BUN (7-17) mg/dL Creatinine (0.7-1.2) mg/dL Est GFR ( Amer) Est GFR (Non-Af Amer) POC Glucose (mg/dL) 97 81 (65-110) mg/dL Random Glucose (65-105) mg/dL Calcium (8.6-10.4) mg/dl Phosphorus (2.5-4.5) mg/dL Magnesium (1.6-2.3) mg/dL Total Bilirubin (0.2-1.3) mg/dL AST (14-36) U/L ALT (9-52) U/L Alkaline Phosphatase (38-126) U/L Total Protein (6.3-8.3) g/dL Albumin (3.5-5.0) g/dL Globulin (2.2-3.9) gm/dL Albumin/Globulin Ratio (1.0-2.1) Arterial Blood Potassium (3.6-5.2) mmol/L Urine HCG, Qual (NEGATIVE) C. difficile Ag & Toxin Negative (NEGATIVE) 07/23/18 07/23/18 07/23/18 Range/Units 11:41 06:05 00:26 WBC (4.8-10.8) K/uL RBC (3.80-5.20) Mil/uL Hgb (11.0-16.0) g/dL Hct (34.0-47.0) % MCV (81.0-99.0) fL MCH (27.0-31.0) pg MCHC (33.0-37.0) g/dL RDW (11.5-14.5) % Plt Count (130-400) K/uL MPV (7.2-11.7) fL Neut % (Auto) (50.0-75.0) % Lymph % (Auto) (20.0-40.0) % Pacific % (Auto) (0.0-10.0) % Eos % (Auto) (0.0-4.0) % Baso % (Auto) (0.0-2.0) % Neut # (Auto) (1.8-7.0) K/uL Lymph # (Auto) (1.0-4.3) K/uL [place] # (Auto) (0.0-0.8) K/uL Eos # (Auto) (0.0-0.7) K/uL Baso # (Auto) (0.0-0.2) K/uL APTT (21-34) SECONDS Puncture Site pCO2 (35-45) mm/Hg pO2 (80-100) mm/Hg HCO3 (21-28) mmol/L ABG pH (7.35-7.45) ABG Total CO2 (22-28) mmol/L ABG O2 Saturation (95-98) % ABG Base Excess (-2.0-3.0) mmol/L Kevon Test ABG Potassium (3.6-5.2) mmol/L A-a O2 Difference mm/Hg Respiratory Index Glucose (65-105) mg/dl Lactate (0.7-2.1) mmol/L Vent Mode Mechanical Rate FiO2 % Tidal Volume PEEP Sodium (132-148) mmol/L Potassium (3.6-5.2) mmol/L Chloride (98-107) mmol/L Carbon Dioxide (22-30) mmol/L Anion Gap (10-20) BUN (7-17) mg/dL Creatinine (0.7-1.2) mg/dL Est GFR ( Amer) Est GFR (Non-Af Amer) POC Glucose (mg/dL) 99 100 97 (65-110) mg/dL Random Glucose (65-105) mg/dL Calcium (8.6-10.4) mg/dl Phosphorus (2.5-4.5) mg/dL Magnesium (1.6-2.3) mg/dL Total Bilirubin (0.2-1.3) mg/dL AST (14-36) U/L ALT (9-52) U/L Alkaline Phosphatase (38-126) U/L Total Protein (6.3-8.3) g/dL Albumin (3.5-5.0) g/dL Globulin (2.2-3.9) gm/dL Albumin/Globulin Ratio (1.0-2.1) Arterial Blood Potassium (3.6-5.2) mmol/L Urine HCG, Qual (NEGATIVE) C. difficile Ag & Toxin (NEGATIVE) Laboratory Results - last 24 hr 07/23/18 07/23/18 07/23/18 00:26 06:05 11:41 WBC RBC Hgb Hct MCV MCH MCHC RDW Plt Count MPV Neut % (Auto) Lymph % (Auto) [place] % (Auto) Eos % (Auto) Baso % (Auto) Neut # (Auto) Lymph # (Auto) [place] # (Auto) Eos # (Auto) Baso # (Auto) APTT Puncture Site pCO2 pO2 HCO3 ABG pH ABG Total CO2 ABG O2 Saturation ABG Base Excess Kevon Test ABG Potassium A-a O2 Difference Respiratory Index Glucose Lactate Vent Mode Mechanical Rate FiO2 Tidal Volume PEEP Sodium Potassium Chloride Carbon Dioxide Anion Gap BUN Creatinine Est GFR ( Amer) Est GFR (Non-Af Amer) POC Glucose (mg/dL) 97 100 99 Random Glucose Calcium Phosphorus Magnesium Total Bilirubin AST ALT Alkaline Phosphatase Total Protein Albumin Globulin Albumin/Globulin Ratio Arterial Blood Potassium Urine HCG, Qual C. difficile Ag & Toxin 07/23/18 07/23/18 07/23/18 13:04 17:58 23:33 WBC RBC Hgb Hct MCV MCH MCHC RDW Plt Count MPV Neut % (Auto) Lymph % (Auto) [place] % (Auto) Eos % (Auto) Baso % (Auto) Neut # (Auto) Lymph # (Auto) [place] # (Auto) Eos # (Auto) Baso # (Auto) APTT Puncture Site pCO2 pO2 HCO3 ABG pH ABG Total CO2 ABG O2 Saturation ABG Base Excess Kevon Test ABG Potassium A-a O2 Difference Respiratory Index Glucose Lactate Vent Mode Mechanical Rate FiO2 Tidal Volume PEEP Sodium Potassium Chloride Carbon Dioxide Anion Gap BUN Creatinine Est GFR ( Amer) Est GFR (Non-Af Amer) POC Glucose (mg/dL) 81 97 Random Glucose Calcium Phosphorus Magnesium Total Bilirubin AST ALT Alkaline Phosphatase Total Protein Albumin Globulin Albumin/Globulin Ratio Arterial Blood Potassium Urine HCG, Qual C. difficile Ag & Toxin Negative 07/24/18 07/24/18 07/24/18 02:56 02:56 02:56 WBC 5.0 RBC 3.40 L Hgb 9.9 L Hct 29.8 L MCV 87.7 MCH 29.1 MCHC 33.2 RDW 15.6 H Plt Count 217 MPV 8.7 Neut % (Auto) 62.1 Lymph % (Auto) 23.3 Pacific % (Auto) 10.9 H Eos % (Auto) 2.8 Baso % (Auto) 0.9 Neut # (Auto) 3.1 Lymph # (Auto) 1.2 [place] # (Auto) 0.5 Eos # (Auto) 0.1 Baso # (Auto) 0.0 APTT 57 H D Puncture Site pCO2 pO2 HCO3 ABG pH ABG Total CO2 ABG O2 Saturation ABG Base Excess Kevon Test ABG Potassium A-a O2 Difference Respiratory Index Glucose Lactate Vent Mode Mechanical Rate FiO2 Tidal Volume PEEP Sodium 147 Potassium 4.9 Chloride 113 H Carbon Dioxide 30 Anion Gap 8 L BUN 24 H Creatinine 1.1 Est GFR ( Amer) > 60 Est GFR (Non-Af Amer) 52 POC Glucose (mg/dL) Random Glucose 87 Calcium 8.5 L Phosphorus 2.1 L Magnesium 3.0 H Total Bilirubin 0.7 AST 46 H D ALT 40 Alkaline Phosphatase 308 H D Total Protein 6.0 L Albumin 2.7 L Globulin 3.3 Albumin/Globulin Ratio 0.8 L Arterial Blood Potassium Urine HCG, Qual C. difficile Ag & Toxin 07/24/18 07/24/18 07/24/18 04:30 06:35 10:22 WBC RBC Hgb Hct MCV MCH MCHC RDW Plt Count MPV Neut % (Auto) Lymph % (Auto) Pacific % (Auto) Eos % (Auto) Baso % (Auto) Neut # (Auto) Lymph # (Auto) [place] # (Auto) Eos # (Auto) Baso # (Auto) APTT Puncture Site Rb pCO2 41 pO2 66 L HCO3 26.3 ABG pH 7.42 ABG Total CO2 27.9 ABG O2 Saturation 95.6 ABG Base Excess 1.9 Kevon Test Na ABG Potassium 4.4 A-a O2 Difference 97.0 Respiratory Index 1.5 Glucose 69 Lactate 0.7 Vent Mode Prvc Mechanical Rate 10 FiO2 30.0 Tidal Volume 440 PEEP 5 Sodium 146.0 Potassium Chloride 114.0 H Carbon Dioxide Anion Gap BUN Creatinine Est GFR ( Amer) Est GFR (Non-Af Amer) POC Glucose (mg/dL) 75 Random Glucose Calcium Phosphorus Magnesium Total Bilirubin AST ALT Alkaline Phosphatase Total Protein Albumin Globulin Albumin/Globulin Ratio Arterial Blood Potassium 4.4 Urine HCG, Qual Negative C. difficile Ag & Toxin Fingerstick Blood Sugar Results: 105 Review of Systems - Review of Systems Systems not reviewed;Unavailable: Intubated Assessment/Plan - Assessment and Plan (Free Text) Assessment: This is a 52 yo female with PMH of DM2 and hypercholesterolemia who presented to with cough, post-tussive emesis, and malaise x2-3 weeks. She was admitted to the ICU for respiratory failure and acute renal failure. Remains intubated after failing extubation once. Today is status-post tracheostomy with Dr. Melchor Plan: Neuro - Anoxic brain injury - Sedated on precedex Pulm - Hypoxic respiratory failure secondary to pulmonary congestion, renal failure - Goal SaO2 > 92% and paO2 > 55 - Duonebs 2 ml INH RQ4 - Continue cpap trials - Status-post tracheostomy 07/24 POD-[address] Melchor - CXR official report (07/24): worsening infiltrates, satisfactory position of recently placed tracheostomy device, Satisfactory position of remaining support apparatus including venous access catheter and recently placed nasogastric tube CV - Cardiac arrest from unknown etiology - Cardiology consulted. Appreciate recs. - Repeat ECHO from shows left ventricular thrombus; - Doppler show LLE DVT, right cephalic vein thrombus - Restarted Heparin drip (held for tracheostomy placement) - Continue daily aspirin 81 mg, propranolol 5 mg PO TID, crestor 2.5 mg PO HS - Maintain MAP>70 - Propranolol 5mg PO TID GI - Glucerna for tube feeds - Protonix 40 mg IV daily Renal - Acute renal failure resolving - Avoid nephrotoxic drugs Heme: - No acute issues - Continue to monitor H/H Endo - ISS for coverage, q6h - Methimazole 10 mg PO TID Infectious Disease - Merrem 1 gm daily - Discontinued: vancomycin 1 gm daily - Negative cultures - ID following, appreciate all recs Dispo: pending another PS/CPAP trial, tracheostomy placed 07/24 FEN: NPO, on Tube Feeds Access: Peripheral IVs, right subclavian TLC, ETT, OGT Consults: Palliative, Endo, Nephro, Cardio, Neuro, Cardio, GI Ppx: Protonix for GI, SCDs Code status: FULL Next of kin: Martina Isaacs () Patient seen, reviewed, and discussed with attending, Soniya Tarango PGY-1 <Thang Carrillo - Last Filed: 08/07/18 14:08> CCU Objective - Vital Signs / Intake & Output Vital Signs (Last 4 hours): Vital Signs Temp Pulse Resp BP Pulse Ox 08/07/18 13:01 101 H 21 148/79 100 08/07/18 13:00 100 H 24 148/79 99 08/07/18 12:00 97.4 F L 93 H 16 110/68 100 08/07/18 11:00 87 18 113/68 100 Intake and Output (Last 8hrs): Intake & Output 08/06/18 08/07/18 08/07/18 22:59 06:59 14:59 Intake Total 700 460 450 Balance 700 460 450 Weight 100 lb 6.4 oz Intake: Tube Feeding 400 400 350 Other 300 60 100 Other: # Voids Urine, Voided 0 0 0 # Bowel Movements 0 0 0 - Medications Active Medications: Active Medications Generic Name Dose Route Start Last Admin Trade Name Freq PRN Reason Stop Dose Admin Acetaminophen 650 mg 07/28/18 13:39 08/05/18 21:35 Tylenol 325mg Tab PEG 650 mg Q6 PRN Administration Pain, moderate (4-7) Albuterol/Ipratropium 3 ml 07/28/18 16:34 08/06/18 19:45 Duoneb 3 Mg/0.5 Mg (3 Ml) Ud INH 3 ml RQ4 PRN Administration Shortness of Breath Apixaban 5 mg 07/31/18 18:00 08/07/18 09:00 Eliquis PO 5 mg BID MANOLO Administration Ascorbic Acid 1,000 mg 07/24/18 10:00 08/07/18 09:01 Vitamin C 500 Mg Tab NG 1,000 mg DAILY MANOLO Administration Aspirin 81 mg 07/17/18 10:00 08/07/18 09:00 Aspirin Chewable GT 81 mg DAILY MANOLO Administration Bacitracin 1 gm 08/05/18 22:00 08/07/18 09:02 Bacitracin TOP 1 appl BID MANOLO Administration Insulin Aspart 0 unit 07/11/18 08:28 08/07/18 06:35 Novolog SC 2 units Q6 MANOLO Administration Protocol Insulin Glargine 15 unit 08/02/18 22:00 08/07/18 09:17 Lantus SC 10 u Q12 MANOLO Administration Lactobacillus Acidophilus 1 cap 07/08/18 20:00 08/07/18 09:00 Bacid Acidophilus PO 1 cap Q12H MANOLO Administration Methimazole 20 mg 07/27/18 14:00 08/07/18 06:36 Tapazole PO 20 mg Q8 MANOLO Administration Modafinil 100 mg 08/02/18 10:00 08/07/18 09:17 Provigil PEG Not Given DAILY [facility] Multivitamins 1 tab 08/06/18 10:00 08/07/18 09:00 Hexavitamin PEG 1 tab DAILY MANOLO Administration Pantoprazole Sodium 40 mg 07/20/18 10:00 08/07/18 09:00 Protonix Susp PO 40 mg DAILY MANOLO Administration Vitamin A 1 ea 07/28/18 18:00 08/07/18 09:00 Vitamin A & D Oint Ud Foilpak TOP 1 ea BID MANOLO Administration - Patient Studies Lab Studies: Lab Studies 08/07/18 08/07/18 08/07/18 Range/Units 06:27 06:26 06:24 WBC 8.5 (4.8-10.8) K/uL RBC 2.96 L (3.80-5.20) Mil/uL Hgb 8.9 L (11.0-16.0) g/dL Hct 26.1 L (34.0-47.0) % MCV 88.2 (81.0-99.0) fL MCH 29.9 (27.0-31.0) pg MCHC 33.9 (33.0-37.0) g/dL RDW 14.8 H (11.5-14.5) % Plt Count 301 (130-400) K/uL MPV 9.0 (7.2-11.7) fL Neut % (Auto) 70.0 (50.0-75.0) % Lymph % (Auto) 17.0 L (20.0-40.0) % Pacific % (Auto) 8.3 (0.0-10.0) % Eos % (Auto) 3.7 (0.0-4.0) % Baso % (Auto) 1.0 (0.0-2.0) % Neut # (Auto) 5.9 (1.8-7.0) K/uL Lymph # (Auto) 1.4 (1.0-4.3) K/uL Pacific # (Auto) 0.7 (0.0-0.8) K/uL Eos # (Auto) 0.3 (0.0-0.7) K/uL Baso # (Auto) 0.1 (0.0-0.2) K/uL Sodium 142 (132-148) mmol/L Potassium 4.3 (3.6-5.2) mmol/L Chloride 109 H (98-107) mmol/L Carbon Dioxide 25 (22-30) mmol/L Anion Gap 12 (10-20) BUN 41 H (7-17) mg/dL Creatinine 1.0 (0.7-1.2) mg/dL Est GFR ( Amer) > 60 Est GFR (Non-Af Amer) 58 POC Glucose (mg/dL) 186 H (65-110) mg/dL Random Glucose 162 H (65-105) mg/dL Calcium 9.4 (8.6-10.4) mg/dl Phosphorus 5.0 H (2.5-4.5) mg/dL Magnesium 2.6 H (1.6-2.3) mg/dL Total Bilirubin 0.7 (0.2-1.3) mg/dL AST 37 H D (14-36) U/L ALT 72 H D (9-52) U/L Alkaline Phosphatase 258 H (38-126) U/L Total Protein 7.1 (6.3-8.3) g/dL Albumin 3.1 L (3.5-5.0) g/dL Globulin 4.0 H (2.2-3.9) gm/dL Albumin/Globulin Ratio 0.8 L (1.0-2.1) 08/06/18 08/06/18 08/06/18 Range/Units 23:41 17:28 11:59 WBC (4.8-10.8) K/uL RBC (3.80-5.20) Mil/uL Hgb (11.0-16.0) g/dL Hct (34.0-47.0) % MCV (81.0-99.0) fL MCH (27.0-31.0) pg MCHC (33.0-37.0) g/dL RDW (11.5-14.5) % Plt Count (130-400) K/uL MPV (7.2-11.7) fL Neut % (Auto) (50.0-75.0) % Lymph % (Auto) (20.0-40.0) % Pacific % (Auto) (0.0-10.0) % Eos % (Auto) (0.0-4.0) % Baso % (Auto) (0.0-2.0) % Neut # (Auto) (1.8-7.0) K/uL Lymph # (Auto) (1.0-4.3) K/uL Pacific # (Auto) (0.0-0.8) K/uL Eos # (Auto) (0.0-0.7) K/uL Baso # (Auto) (0.0-0.2) K/uL Sodium (132-148) mmol/L Potassium (3.6-5.2) mmol/L Chloride (98-107) mmol/L Carbon Dioxide (22-30) mmol/L Anion Gap (10-20) BUN (7-17) mg/dL Creatinine (0.7-1.2) mg/dL Est GFR ( Amer) Est GFR (Non-Af Amer) POC Glucose (mg/dL) 224 H 188 H 190 H (65-110) mg/dL Random Glucose (65-105) mg/dL Calcium (8.6-10.4) mg/dl Phosphorus (2.5-4.5) mg/dL Magnesium (1.6-2.3) mg/dL Total Bilirubin (0.2-1.3) mg/dL AST (14-36) U/L ALT (9-52) U/L Alkaline Phosphatase (38-126) U/L Total Protein (6.3-8.3) g/dL Albumin (3.5-5.0) g/dL Globulin (2.2-3.9) gm/dL Albumin/Globulin Ratio (1.0-2.1) Laboratory Results - last 24 hr 08/06/18 08/06/18 08/06/18 11:59 17:28 23:41 WBC RBC Hgb Hct MCV MCH MCHC RDW Plt Count MPV Neut % (Auto) Lymph % (Auto) Pacific % (Auto) Eos % (Auto) Baso % (Auto) Neut # (Auto) Lymph # (Auto) Pacific # (Auto) Eos # (Auto) Baso # (Auto) Sodium Potassium Chloride Carbon Dioxide Anion Gap BUN Creatinine Est GFR ( Amer) Est GFR (Non-Af Amer) POC Glucose (mg/dL) 190 H 188 H 224 H Random Glucose Calcium Phosphorus Magnesium Total Bilirubin AST ALT Alkaline Phosphatase Total Protein Albumin Globulin Albumin/Globulin Ratio 08/07/18 08/07/18 08/07/18 06:24 06:26 06:27 WBC 8.5 RBC 2.96 L Hgb 8.9 L Hct 26.1 L MCV 88.2 MCH 29.9 MCHC 33.9 RDW 14.8 H Plt Count 301 MPV 9.0 Neut % (Auto) 70.0 Lymph % (Auto) 17.0 L [place] % (Auto) 8.3 Eos % (Auto) 3.7 Baso % (Auto) 1.0 Neut # (Auto) 5.9 Lymph # (Auto) 1.4 [place] # (Auto) 0.7 Eos # (Auto) 0.3 Baso # (Auto) 0.1 Sodium 142 Potassium 4.3 Chloride 109 H Carbon Dioxide 25 Anion Gap 12 BUN 41 H Creatinine 1.0 Est GFR ( Amer) > 60 Est GFR (Non-Af Amer) 58 POC Glucose (mg/dL) 186 H Random Glucose 162 H Calcium 9.4 Phosphorus 5.0 H Magnesium 2.6 H Total Bilirubin 0.7 AST 37 H D ALT 72 H D Alkaline Phosphatase 258 H Total Protein 7.1 Albumin 3.1 L Globulin 4.0 H Albumin/Globulin Ratio 0.8 L Critical Care Progress Note - Nutrition Nutrition: Nutrition Category Date Time Status NPO Diet [DIET] Diets 07/25/18 Breakfast Active Assessment/Plan - Assessment and Plan (Free Text) Assessment: During the rounds I discussed with the resident. I agree with the current resident note. As needed physical therapy. Out of bed to chair. Tracheal collar possible. Will follow the patient
[2018-07-24] MEDS: Morphine 4 MG/ML VIAL IV PRN (15:06)
--- NOTE | 2018-07-24 16:18 | CP.PCM.PN ---
Subjective - Date & Time of Evaluation Date of Evaluation: 07/24/18 Time of Evaluation: 16:00 - Subjective Subjective: Medical Attending Note: Patient seen and examined at bedside. Patient seen with at bedside. Patient underwent tracheostomy this morning. Heparin held secondary to bleeding from trach site. Objective - Vital Signs/Intake and Output Vital Signs (last 24 hours): Temp Pulse Resp BP Pulse Ox 98.2 F 66 10 L 116/67 100 07/24/18 10:58 07/24/18 16:00 07/24/18 16:00 07/24/18 15:28 07/24/18 16:00 Intake and Output: 07/24/18 07/24/18 06:59 18:59 Intake Total 915.3 450.4 Output Total 2150 375 Balance -1234.7 75.4 - Medications Medications: Current Medications Acetaminophen (Tylenol 325mg Tab) 650 mg PO Q6 PRN PRN Reason: Fever >100.4 F Last Admin: 07/19/18 21:04 Dose: 650 mg Albuterol/Ipratropium (Duoneb 3 Mg/0.5 Mg (3 Ml) Ud) 3 ml INH RQ6 [facility] Last Admin: 07/24/18 13:52 Dose: 3 ml Ascorbic Acid (Vitamin C 500 Mg Tab) 1,000 mg NG DAILY [facility] Last Admin: 07/24/18 09:11 Dose: 1,000 mg Aspirin (Aspirin Chewable) 81 mg GT DAILY [facility] Last Admin: 07/23/18 09:17 Dose: 81 mg Ergocalciferol (Drisdol 50,000 Intl Units Cap) 1 cap PO Q7D [facility] Last Admin: 07/18/18 12:07 Dose: 1 cap Furosemide (Lasix) 20 mg IVP BID [facility] Last Admin: 07/24/18 11:13 Dose: Not Given Dexmedetomidine HCl 200 mcg/ (Sodium Chloride) 50 mls @ 2.91 mls/hr IV TITR PRN; Protocol PRN Reason: Sedation Last Titration: 07/24/18 11:30 Dose: 0 mcg/kg/hr, 0 mls/hr Meropenem 1 gm/ Sodium (Chloride) 100 mls @ 100 mls/hr IVPB Q8H [facility]; Protocol Last Admin: 07/24/18 12:57 Dose: 100 mls/hr Heparin Sodium/Sodium Chloride (Heparin 38017 Units/250ml 1/2 Normal Saline) 25,000 units in 250 mls @ 6.804 mls/hr IV .Q24H PRN; Protocol PRN Reason: PROTOCOL Last Admin: 07/24/18 13:52 Dose: 6.804 mls/hr Dextrose (Dextrose 10% In Water) 1,000 mls @ 30 mls/hr IV .Q24H [facility] Last Admin: 07/24/18 08:06 Dose: 30 mls/hr Insulin Aspart (Novolog) 0 unit SC Q6 [facility]; Protocol Last Admin: 07/24/18 12:56 Dose: Not Given Insulin Glargine (Lantus) 20 unit SC Q12 [facility] Last Admin: 07/24/18 09:09 Dose: Not Given Lactobacillus Acidophilus (Bacid Acidophilus) 1 cap PO Q12H [facility] Last Admin: 07/24/18 09:12 Dose: 1 cap Methimazole (Tapazole) 10 mg PO TID [facility] Last Admin: 07/24/18 14:44 Dose: 10 mg Morphine Sulfate (Morphine) 2 mg IV Q8 PRN PRN Reason: Pain, moderate (4-7) Last Admin: 07/24/18 15:06 Dose: 2 mg Multivitamins/Vitamin C (Multi-Delyn Liquid) 5 ml PO DAILY [facility] Last Admin: 07/24/18 09:12 Dose: 5 ml Pantoprazole Sodium (Protonix Susp) 40 mg PO DAILY [facility] Last Admin: 07/24/18 09:12 Dose: 40 mg Propranolol HCl (Inderal) 5 mg PO TID [facility] Last Admin: 07/24/18 14:44 Dose: 5 mg Rosuvastatin Calcium (Crestor) 2.5 mg PO HS [facility] Last Admin: 07/23/18 21:14 Dose: 2.5 mg - Labs Labs: 07/24/18 02:56 07/24/18 02:56 PT 14.3 SECONDS (9.7-12.2) H 07/23/18 10:26 INR 1.3 07/23/18 10:26 APTT 57 SECONDS (21-34) H D 07/24/18 02:56 - Constitutional Appears: Confused, Chronically Ill - Head Exam Head Exam: NORMAL INSPECTION Additional comments: dressing over the trach (dried blood) - Eye Exam Eye Exam: EOMI - Respiratory Exam Respiratory Exam: Decreased Breath Sounds, Rales, Rhonchi - Cardiovascular Exam Cardiovascular Exam: REGULAR RHYTHM, +S1, +S2 - GI/Abdominal Exam GI & Abdominal Exam: Soft, Normal Bowel Sounds. absent: Distended, Firm, Guarding, Rigid, Tenderness, Hypoactive Bowel Sounds, Rebound - Extremities Exam Extremities Exam: Pedal Edema, Tenderness - Neurological Exam Neurological Exam: Awake - Skin Skin Exam: Dry, Normal Color, Warm Assessment and Plan (1) Septic shock Status: Acute (2) Acute respiratory failure Status: Acute (3) Urinary tract infection Status: Acute (4) Acute renal failure Status: Acute (5) Aspiration pneumonia Status: Acute (6) Diabetes mellitus Status: Chronic (7) Ventricular arrhythmia Status: Acute (8) Hyperthyroidism Status: Acute (9) Anemia Status: Acute (10) Prophylactic measure Status: Acute Attending/Attestation - Attestation I have personally seen and examined this patient.: Yes I have fully participated in the care of the patient.: Yes I have reviewed all pertinent clinical information, including history, physical exam and plan: Yes Notes (Text): Patient is status post trachestomy today. Discussed with ICU resident, will allow for peg placement now. Patient has some bleeding post-operative from trach when heparin was restarted; no bleeding noted at this time. Pending GI evaluation for peg placement. patient has noted apical thrombus and LLE DVT; on heparin drip (previously on Eliquis prior to procedures) Patient is on Meropenem; pending repeat procalcitonin since it was 3.86 on 07/20/18. patient has been w/o fever since 07/19/18 and white count has normalized. Assessment/plan 1) Septic Shock Assessment/Plan * Infectious Disease (Dr. Brock) on case-->help appreciated * Tmax: 101.7 F (07/19/18) * Afebrile since * Criteria: leukocytosis, tachycardia * Source: aspiration pneumonia and urinary tract infection * 07/07/18: Urine: E. Coli * 07/09/18: Urine: No growth * 07/07/18: Blood culture: no growth after 5 days X2 * 07/09/18 Blood culture: no growth after 5 days X2 * 07/14/18: blood cultures: no growth to date * 07/14/18: sputum culture: yeast species * 07/14/18: Urine culture: no growth * 07/20/18: Blood culture: no growth after 4 days X2 * 07/20/18: Urine culture: no growth * 07/21/18: No Salmonella, shigella, or campobacter * 07/23/18 Urine culture: no growth * MRSA not detected * Antibiotics * Rocephin 2gm IVPB Q12H (07/14/18 through 07/20/18) * Meropenem 1 gm IV Q8H (active since 07/20/18) * Vancomycin 1 gram IVPB Q24H (being held since 07/20/18)-->vancomycin level 7.7--> f/u ID regards to Vancomycin 2) Acute Respiratory Failure Pulmonary Edema Bilateral Pleural Effusion and Consolidations Likely Secondary to Aspiration Pneumonia Assessment/Plan * Required reintubated after 2nd fail attempt; patient underwent trachestomy 07/24/18 * off Solumedrol * Duonebs RQ6H PRN wheezing * MRSA screen: not detected * Sputum culture 07/09/18, 07/12/18, 07/14/18: yeast * Mycoplasma negative * Legionella was negative * Influenza negative * HIV negative * CT Chest 07/15/18: Moderate to large bilateral pleural effusion and associated consolidations, pathcy grround-glass infiltrates/edema noted within bilateral upper lobes * Chest xray (07/24/18): worsening infiltrates, satisfactory position of recently placed tracheostomy device. Satisfactory position of remaining support apparatus including venous access catheter and recently placed nasogastric tube * Rocephin 2gm IVPB Q12H (07/14/18 through 07/20/18) * Meropenem 1 gm IV Q8H (active since 07/20/18) * Vancomycin 1 gram IVPB Q24H (being held since 07/20/18). * Bedside Thoracic U/S 07/17/18 did not reveal enough pleural effusion for Thoracentesis * Lasix 20 mg IV Q12H * Levophed Drip currently on hold * Procalcitonin uptrending as of 07/20/18; order for repeat today 3) Ventricular Tachycardia NSTEMI Apical Thrombus LLE DVT Assessment/Plan * Code Blue 07/10: SVT==>VT required amiodarone, magnesium, one shock delivered * Code Blue 07/20: vtach s/p amiodarone, fluid, calcium gluconate, required compressions and shock * Cardiology Dr Francisco on case help appreciated * Echocardiogram (07/07/18): left ventricle systolic function is borderline, ejection fraction is 45-50%, no aortic regurgitation is present, mitral regurgitation is mild. Mild tricuspid regurgitation. mild pulmonary hyp ertension, mild pulmonic valvular regurgitation * Contrast Echo: Large apical hypokinesis a large 30 x 20 mm soft tissue apical sessile mass suggestive of thrombus overall fraction 40%. Obtain a HUBERT or /consider stress card myopathy if coronary disease is excluded further findings per report * Amiodarone discontinued * Monitor electrolytes * Heparin drip changed to Eliquis 2.5 mg 2x/day 07/18/18 and then patient placed back on Heparin Drip 07/21/18 for pending Tracheostomy on 07/24/18 * Recommended Heparin drip until possible Peg placement with GI * Aspirin 81 mg PO 1x/day. Considering patient already on Eliquis and to reduce chance of bleeding, Plavix was discontinued 07/18/18. * Eliquis is on hold for trach and/or peg placement * Propranolol 5mg PO TID 4) Urinary Tract Infection Assessment/Plan * Infectious disease on board help appreciated * 07/07/18: Urine: E. Coli * 07/09/18: Urine: No growth * 07/14/18: Urine culture: No growth * Urine Culture 07/20/18: No growth 5) Diabetes-->chronic Assessment/Plan * HgBA1c: 7.8 * Hypoglycemic protocol * Lantus 20 units subcutaneous at bedtime Q12 6) Acute on Chronic Renal Failure Assessment/Plan * Nephrology (Dr. Hyde) on board--> help appreciated * Patient will likely not need dialysis * Renal function continues to improve 7) Hyperthyroidism? Low TSH, and Free T4 Thyroid Storm Assessment/Plan * Note Thyroid studies taken before amiodarone was given (please advised this is not amiodarone induced her levels were abnormal prior) * Patient does not have prior thyroid history * Endocrinology (Dr. 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 She will need outpatient FNA Bx of the complex Left Lobe cyst (please see full report) * Methimazole 10mg PO TID * Propranolol 5 mg PO TID * Monitor LFTs 8) Anemia Likely Secondary to Chronic Diseases Assessment/Plan * Iron normal, TIBC low, Iron Saturation normal, Ferritin normal * Stool occult blood negative * B12 normal * Folate Normal * Being transfused 1 unit PRBC 07/22/18 * Patient is on Eliquis (which is being held and switched to Heparin Drip for Tracheostomy 07/24/18; and possible peg placement) for the Cardiac Apical Thrombus and on Aspirin for the NSTEMI (Plavix was discontinued 07/18/18) 9) Transminitis-->improving * Likely secondary to Sepsis and Amiodarone (which was discontinued) * Hepatitis serology negative * Slightly elevated from normal on 07/20/18 but could be secondary to [employer]/Code Blue 07/20/18 10) Vitamin D deficiency Assessment plan * 50,000 international units once a week for at least 8-12 weeks started on 07/11/18 11) Thrombocytopenia-->resolved Assessment plan * Sepsis, vs Methimazole? * Patient was on Heparin Drip through 07/18/18 and then started on Eliquis on this date * Heparin drip for procedures * patient was on Eliquis prior but given trachestomy and now peg placement * Fibrinogen elevated * HIT and RUSTY both negative for HIT * Currently normalized 12) 13 mm Left Adrenal Nodule * As seen on CT Chest 07/16/18 * Will need outpatient follow up for cross sectional imaging for better characterization 13) Hypernatremia-->resolved * Free water 250 ml 3x/day via OGT * Na now normal 14) LLE DVT * Heparin drip changed to Eliquis 2.5 mg 2x/day 07/18/18 and then patient placed back on Heparin Drip 07/21/18 for pending Tracheostomy on 07/24/18 * Recommended Heparin drip until possible Peg placement with GI * Acute thrombosis of the left common femoral and femoral veins with severe reduction of the venous return on 07/18/18 venous doppler 15) Prophylactic measure * Protonix 40mg PO BID * Eliquis 2.5 mg PO BID which has been changed back to Heparin Drip for Tracheostomy 07/24/18; now allows for peg placement with GI; c/w heparin drip until procedures are completed * Bilateral SCDs * Glucerna Feedings via OGT * Subclavian line 07/14/18 * On precedex * On morphine PRN s/p trachestomy Disposition; Patient underwent open trachoestomy today. now allows for peg placement for feeding. GI consulted. Patient is on IV abx for pneumonia and urinary tract infection. Repeat procalcitonin.
[2018-07-24] MEDS: Rosuvastatin Calcium 2.5 mg Tab PO SCH (22:13)
[2018-07-25] MEDS: (Novolog) Insulin Aspart, Recombinant 100 u/ml 10 ml vial SC SCH ×4 (00:44→18:34)
[2018-07-25] MEDS: Albuterol-Ipratrop 3 mg / 0.5 (3 ml) UD INH SCH ×4 (01:35→19:34)
[2018-07-25] MEDS: Meropenem 1 GM in Sodium Chloride 0.9% 100 ML IVPB SCH ×3 (03:02→20:10)
[2018-07-25] MEDS: Morphine 4 MG/ML VIAL IV PRN ×2 (03:05→20:26)
[2018-07-25] MEDS: Heparin25000 units/250ml 1/2NS 25,000 UNITS/250 ML BAG IV PRN (05:16)
[2018-07-25 05:58] LABS: ARTERIAL BLOOD GAS HCO3 25.8 mmol/L (21-28); ARTERIAL BLOOD GAS HEMOGLOBIN 11.5 g/dL (11.7-17.4); ARTERIAL BLOOD GAS O2 SAT 91.9 % (95-98); ARTERIAL BLOOD GAS PCO2 40 mm/Hg (35-45); ARTERIAL BLOOD GAS PH 7.42 (7.35-7.45); ARTERIAL BLOOD GAS PO2 52 mm/Hg (80-100); ARTERIAL BLOOD GAS TCO2 27.1 mmol/L (22-28)
--- NOTE | 2018-07-25 06:39 | CP.PCM.CON ---
<Cuba Amaya - Last Filed: 07/25/18 09:02> History of Present Illness - History of Present Illness History of Present Illness: PGY6 GI Fellow Consult Note Patient is a 52yo Noelle-speaking female with PMHx significant for diabetes, hyperthyroidism who presented to the ED with complaints of productive cough and generalized malaise for 2-3 weeks. Patient had been experiencing productive cough with coughing fits followed by post-tussive emesis. Symptoms became severe enough that she was unable to tolerate food prior to arrival. On admission, she was diagnosed with UTI, pneumonia and NEHA, started on IVF and antibiotics (Ceftriaxone/Azithromycin). Within 24 hours of admission patient suddenly went in to respiratory failure requiring mechanical ventilation and septic shock. On 07/10, patient had code blue with ventricular trachycardia arrest requiring amiodarone cardioversion. Echocardiogram has since revealed EF of 40% and LV thrombus for which she is on IV Heparin. The patient remains on Meropenem and underwent tracheostomy yesterday due to failed attempts to wean from ventilation. Our service has been consulted for PEG evaluation. 12 system ROS cannot be performed given clinical condition PMHx: See HPI PSHx: Tracheostomy yesterday FHx: No documented significant family history Social: No tobacco, EtOH or illicit drug use Endo: No known endoscopic evaluations Past Patient History - Tetanus Immunizations Tetanus Immunization: Unknown - Past Medical History & Family History Past Family History: Reviewed and not pertinent - Past Social History Smoking Status: Never Smoked Alcohol: None Drugs: Denies Home Situation {Lives}: With Family - CARDIAC Hx Hypercholesterolemia: Yes - PULMONARY Hx Respiratory Disorders: No - NEUROLOGICAL Hx Neurological Disorder: No - HEENT Hx HEENT Problems: No - RENAL Hx Chronic Kidney Disease: No - ENDOCRINE/METABOLIC Hx Endocrine Disorders: Yes Hx Diabetes Mellitus Type 1: Yes - HEMATOLOGICAL/ONCOLOGICAL Hx Blood Disorders: No - INTEGUMENTARY Hx Dermatological Problems: No - MUSCULOSKELETAL/RHEUMATOLOGICAL Hx Musculoskeletal Disorders: No Hx Falls: No - GASTROINTESTINAL Hx Gastrointestinal Disorders: No - GENITOURINARY/GYNECOLOGICAL Hx Genitourinary Disorders: No - PSYCHIATRIC Hx Substance Use: No - SURGICAL HISTORY Other/Comment: removal of ovaries - ANESTHESIA Hx Anesthesia: Yes Hx Anesthesia Reactions: No Hx Malignant Hyperthermia: No Meds Allergies/Adverse Reactions: Allergies Allergy/AdvReac Type Severity Reaction Status Date / Time No Known Allergies Allergy Unverified 07/03/18 23:36 - Medications Medications: Current Medications Acetaminophen (Tylenol 325mg Tab) 650 mg PO Q6 PRN PRN Reason: Fever >100.4 F Last Admin: 07/19/18 21:04 Dose: 650 mg Albuterol/Ipratropium (Duoneb 3 Mg/0.5 Mg (3 Ml) Ud) 3 ml INH RQ6 [facility] Last Admin: 07/25/18 01:35 Dose: 3 ml Ascorbic Acid (Vitamin C 500 Mg Tab) 1,000 mg NG DAILY [facility] Last Admin: 07/24/18 09:11 Dose: 1,000 mg Aspirin (Aspirin Chewable) 81 mg GT DAILY [facility] Last Admin: 07/23/18 09:17 Dose: 81 mg Ergocalciferol (Drisdol 50,000 Intl Units Cap) 1 cap PO Q7D [facility] Last Admin: 07/18/18 12:07 Dose: 1 cap Furosemide (Lasix) 20 mg IVP BID [facility] Last Admin: 07/24/18 17:12 Dose: 20 mg Dexmedetomidine HCl 200 mcg/ (Sodium Chloride) 50 mls @ 2.91 mls/hr IV TITR PRN; Protocol PRN Reason: Sedation Last Titration: 07/24/18 11:30 Dose: 0 mcg/kg/hr, 0 mls/hr Meropenem 1 gm/ Sodium (Chloride) 100 mls @ 100 mls/hr IVPB Q8H [facility]; Protocol Last Admin: 07/25/18 03:02 Dose: 100 mls/hr Heparin Sodium/Sodium Chloride (Heparin 87975 Units/250ml 1/2 Normal Saline) 25,000 units in 250 mls @ 6.804 mls/hr IV .Q24H PRN; Protocol PRN Reason: PROTOCOL Last Admin: 07/25/18 05:16 Dose: 6.804 mls/hr Dextrose (Dextrose 10% In Water) 1,000 mls @ 30 mls/hr IV .Q24H [facility] Last Admin: 07/24/18 08:06 Dose: 30 mls/hr Insulin Aspart (Novolog) 0 unit SC Q6 [facility]; Protocol Last Admin: 07/25/18 05:46 Dose: Not Given Insulin Glargine (Lantus) 20 unit SC Q12 [facility] Last Admin: 07/24/18 22:13 Dose: 20 u Lactobacillus Acidophilus (Bacid Acidophilus) 1 cap PO Q12H [facility] Last Admin: 07/24/18 20:05 Dose: 1 cap Methimazole (Tapazole) 10 mg PO TID [facility] Last Admin: 07/24/18 17:31 Dose: 10 mg Morphine Sulfate (Morphine) 2 mg IV Q8 PRN PRN Reason: Pain, moderate (4-7) Last Admin: 07/25/18 03:05 Dose: 2 mg Multivitamins/Vitamin C (Multi-Delyn Liquid) 5 ml PO DAILY [facility] Last Admin: 07/24/18 09:12 Dose: 5 ml Pantoprazole Sodium (Protonix Susp) 40 mg PO DAILY [facility] Last Admin: 07/24/18 09:12 Dose: 40 mg Propranolol HCl (Inderal) 5 mg PO TID [facility] Last Admin: 07/24/18 17:30 Dose: 5 mg Rosuvastatin Calcium (Crestor) 2.5 mg PO HS [facility] Last Admin: 07/24/18 22:13 Dose: 2.5 mg Physical Exam - Constitutional Appears: Agitated, Confused, Other (trach to vent) - Eye Exam Eye Exam: PERRL - ENT Exam ENT Exam: Mucous Membranes Moist - Respiratory Exam Respiratory Exam: Rales (B/L). absent: Clear to Auscultation Bilateral, Rho nchi, Wheezes - Cardiovascular Exam Cardiovascular Exam: RRR, +S1, +S2 - GI/Abdominal Exam GI & Abdominal Exam: Normal Bowel Sounds, Soft. absent: Distended, Firm, Guarding, Organomegaly, Rigid, Tenderness - Extremities Exam Extremities exam: Positive for: normal inspection. Negative for: pedal edema - Neurological Exam Neurological exam: Altered - Psychiatric Exam Psychiatric exam: Agitated, Anxious - Skin Skin Exam: Dry, Warm Results - Vital Signs Recent Vital Signs: Last Vital Signs Temp 98 F 07/25/18 04:00 Pulse 91 H 07/25/18 04:00 Resp 10 L 07/25/18 04:00 BP 91/49 L 07/25/18 03:58 Pulse Ox 97 07/25/18 04:00 - Labs Result Diagrams: 07/25/18 06:46 07/25/18 06:46 Labs: Laboratory Results - last 24 hr 07/23/18 07/23/18 07/23/18 00:26 06:05 11:41 APTT Puncture Site pCO2 pO2 HCO3 ABG pH ABG Total CO2 ABG O2 Saturation ABG Base Excess ABG Hemoglobin ABG Carboxyhemoglobin POC ABG HHb (Measured) ABG Methemoglobin Kevon Test A-a O2 Difference Respiratory Index Hgb O2 Saturation Vent Mode Mechanical Rate FiO2 Tidal Volume PEEP POC Glucose (mg/dL) 97 100 99 Procalcitonin Urine HCG, Qual 07/23/18 07/23/18 07/24/18 17:58 23:33 06:35 APTT Puncture Site pCO2 pO2 HCO3 ABG pH ABG Total CO2 ABG O2 Saturation ABG Base Excess ABG Hemoglobin ABG Carboxyhemoglobin POC ABG HHb (Measured) ABG Methemoglobin Kevon Test A-a O2 Difference Respiratory Index Hgb O2 Saturation Vent Mode Mechanical Rate FiO2 Tidal Volume PEEP POC Glucose (mg/dL) 81 97 75 Procalcitonin Urine HCG, Qual 07/24/18 07/24/18 07/24/18 10:22 10:55 17:38 APTT Puncture Site pCO2 pO2 HCO3 ABG pH ABG Total CO2 ABG O2 Saturation ABG Base Excess ABG Hemoglobin ABG Carboxyhemoglobin POC ABG HHb (Measured) ABG Methemoglobin Kevon Test A-a O2 Difference Respiratory Index Hgb O2 Saturation Vent Mode Mechanical Rate FiO2 Tidal Volume PEEP POC Glucose (mg/dL) 105 39 L Procalcitonin Urine HCG, Qual Negative 07/24/18 07/24/18 07/24/18 17:41 17:43 20:12 APTT 52 H D Puncture Site pCO2 pO2 HCO3 ABG pH ABG Total CO2 ABG O2 Saturation ABG Base Excess ABG Hemoglobin ABG Carboxyhemoglobin POC ABG HHb (Measured) ABG Methemoglobin Kevon Test A-a O2 Difference Respiratory Index Hgb O2 Saturation Vent Mode Mechanical Rate FiO2 Tidal Volume PEEP POC Glucose (mg/dL) 81 Procalcitonin 0.75 H Urine HCG, Qual 07/24/18 07/25/18 07/25/18 23:35 02:27 05:34 APTT 52 H Puncture Site pCO2 pO2 HCO3 ABG pH ABG Total CO2 ABG O2 Saturation ABG Base Excess ABG Hemoglobin ABG Carboxyhemoglobin POC ABG HHb (Measured) ABG Methemoglobin Kevon Test A-a O2 Difference Respiratory Index Hgb O2 Saturation Vent Mode Mechanical Rate FiO2 Tidal Volume PEEP POC Glucose (mg/dL) 107 60 L Procalcitonin Urine HCG, Qual 07/25/18 07/25/18 05:38 05:39 APTT Puncture Site L brac pCO2 40 pO2 52 L HCO3 25.8 ABG pH 7.42 ABG Total CO2 27.1 ABG O2 Saturation 91.9 L ABG Base Excess 1.3 ABG Hemoglobin 11.5 L ABG Carboxyhemoglobin 2.4 H POC ABG HHb (Measured) 7.8 H ABG Methemoglobin 0.8 Kevon Test Na A-a O2 Difference 112.0 Respiratory Index 2.2 Hgb O2 Saturation 89.0 L Vent Mode Prvc Mechanical Rate 10 FiO2 30.0 Tidal Volume 440 PEEP 5 POC Glucose (mg/dL) 76 Procalcitonin Urine HCG, Qual Assessment & Plan - Assessment and Plan (Free Text) Assessment: Patient is a 52yo Noelle-speaking female with PMHx significant for diabetes, hyperthyroidism who presented to the ED with complaints of productive cough and generalized malaise for 2-3 weeks. Patient has since suffered cardiac arrest, anoxic brain injury and respiratory failure requiring tracheostomy -VTach cardiac arrest s/p resuscitation -Anoxic brain injury -Respiratory failure requiring mechanical ventilation -LV thrombus -Systolic CHF -Dysphagia as a result of above Plan: -Patient is a candidate for PEG tube placement pending discussion with patient's -S/P tracheostomy yesterday -Heparin gtt to sabrina ortiz at 6am tomorrow in anticipation of PEG placement -Maintain NPO past midnight and hold tube feedings past midnight - Date & Time Date: 07/25/18 Time: 07:00 <Hai Murray - Last Filed: 07/25/18 15:06> Meds - Medications Medications: Current Medications Acetaminophen (Tylenol 325mg Tab) 650 mg PO Q6 PRN PRN Reason: Fever >100.4 F Last Admin: 07/19/18 21:04 Dose: 650 mg Albuterol/Ipratropium (Duoneb 3 Mg/0.5 Mg (3 Ml) Ud) 3 ml INH RQ6 [facility] Last Admin: 07/25/18 13:59 Dose: 3 ml Ascorbic Acid (Vitamin C 500 Mg Tab) 1,000 mg NG DAILY [facility] Last Admin: 07/25/18 09:17 Dose: 1,000 mg Aspirin (Aspirin Chewable) 81 mg GT DAILY [facility] Last Admin: 07/25/18 09:17 Dose: 81 mg Ergocalciferol (Drisdol 50,000 Intl Units Cap) 1 cap PO Q7D [facility] Last Admin: 07/25/18 14:15 Dose: 1 cap Furosemide (Lasix) 20 mg IVP BID [facility] Last Admin: 07/25/18 09:17 Dose: 20 mg Dexmedetomidine HCl 200 mcg/ (Sodium Chloride) 50 mls @ 2.91 mls/hr IV TITR PRN; Protocol PRN Reason: Sedation Last Titration: 07/24/18 11:30 Dose: 0 mcg/kg/hr, 0 mls/hr Meropenem 1 gm/ Sodium (Chloride) 100 mls @ 100 mls/hr IVPB Q8H [facility]; Protocol Last Admin: 07/25/18 10:54 Dose: 100 mls/hr Heparin Sodium/Sodium Chloride (Heparin 78440 Units/250ml 1/2 Normal Saline) 25,000 units in 250 mls @ 6.804 mls/hr IV .Q24H PRN; Protocol PRN Reason: PROTOCOL Last Admin: 07/25/18 05:16 Dose: 6.804 mls/hr Dextrose (Dextrose 10% In Water) 1,000 mls @ 30 mls/hr IV .Q24H [facility] Last Admin: 07/25/18 08:37 Dose: 30 mls/hr Insulin Aspart (Novolog) 0 unit SC Q6 [facility]; Protocol Last Admin: 07/25/18 12:00 Dose: Not Given Insulin Glargine (Lantus) 20 unit SC Q12 [facility] Last Admin: 07/24/18 22:13 Dose: 20 u Lactobacillus Acidophilus (Bacid Acidophilus) 1 cap PO Q12H [facility] Last Admin: 07/25/18 09:11 Dose: 1 cap Methimazole (Tapazole) 10 mg PO TID [facility] Last Admin: 07/25/18 14:20 Dose: 10 mg Morphine Sulfate (Morphine) 2 mg IV Q8 PRN PRN Reason: Pain, moderate (4-7) Last Admin: 07/25/18 03:05 Dose: 2 mg Multivitamins/Vitamin C (Multi-Delyn Liquid) 5 ml PO DAILY [facility] Last Admin: 07/25/18 09:18 Dose: 5 ml Pantoprazole Sodium (Protonix Susp) 40 mg PO DAILY [facility] Last Admin: 07/25/18 09:17 Dose: 40 mg Propranolol HCl (Inderal) 5 mg PO TID [facility] Last Admin: 07/25/18 14:20 Dose: 5 mg Rosuvastatin Calcium (Crestor) 2.5 mg PO HS [facility] Last Admin: 07/24/18 22:13 Dose: 2.5 mg Results - Vital Signs Recent Vital Signs: Last Vital Signs Temp 97.5 F L 07/25/18 08:00 Pulse 79 07/25/18 10:58 Resp 10 L 07/25/18 10:58 BP 107/56 L 07/25/18 10:58 Pulse Ox 100 07/25/18 10:58 - Labs Result Diagrams: 07/25/18 06:46 07/25/18 06:46 Labs: Laboratory Results - last 24 hr 07/24/18 07/24/18 07/24/18 10:55 17:38 17:41 WBC RBC Hgb Hct MCV MCH MCHC RDW Plt Count MPV Neut % (Auto) Lymph % (Auto) Citrus % (Auto) Eos % (Auto) Baso % (Auto) Neut # (Auto) Lymph # (Auto) Citrus # (Auto) Eos # (Auto) Baso # (Auto) APTT Puncture Site pCO2 pO2 HCO3 ABG pH ABG Total CO2 ABG O2 Saturation ABG Base Excess ABG Hemoglobin ABG Carboxyhemoglobin POC ABG HHb (Measured) ABG Methemoglobin Kevon Test A-a O2 Difference Respiratory Index Hgb O2 Saturation Vent Mode Mechanical Rate FiO2 Tidal Volume PEEP Sodium Potassium Chloride Carbon Dioxide Anion Gap BUN Creatinine Est GFR ( Amer) Est GFR (Non-Af Amer) POC Glucose (mg/dL) 105 39 L 81 Random Glucose Calcium Phosphorus Magnesium Total Bilirubin AST ALT Alkaline Phosphatase Total Protein Albumin Globulin Albumin/Globulin Ratio Procalcitonin 07/24/18 07/24/18 07/24/18 17:43 20:12 23:35 WBC RBC Hgb Hct MCV MCH MCHC RDW Plt Count MPV Neut % (Auto) Lymph % (Auto) Citrus % (Auto) Eos % (Auto) Baso % (Auto) Neut # (Auto) Lymph # (Auto) Citrus # (Auto) Eos # (Auto) Baso # (Auto) APTT 52 H D Puncture Site pCO2 pO2 HCO3 ABG pH ABG Total CO2 ABG O2 Saturation ABG Base Excess ABG Hemoglobin ABG Carboxyhemoglobin POC ABG HHb (Measured) ABG Methemoglobin Kevon Test A-a O2 Difference Respiratory Index Hgb O2 Saturation Vent Mode Mechanical Rate FiO2 Tidal Volume PEEP Sodium Potassium Chloride Carbon Dioxide Anion Gap BUN Creatinine Est GFR ( Amer) Est GFR (Non-Af Amer) POC Glucose (mg/dL) 107 Random Glucose Calcium Phosphorus Magnesium Total Bilirubin AST ALT Alkaline Phosphatase Total Protein Albumin Globulin Albumin/Globulin Ratio Procalcitonin 0.75 H 07/25/18 07/25/18 07/25/18 02:27 05:34 05:38 WBC RBC Hgb Hct MCV MCH MCHC RDW Plt Count MPV Neut % (Auto) Lymph % (Auto) Citrus % (Auto) Eos % (Auto) Baso % (Auto) Neut # (Auto) Lymph # (Auto) Citrus # (Auto) Eos # (Auto) Baso # (Auto) APTT 52 H Puncture Site pCO2 pO2 HCO3 ABG pH ABG Total CO2 ABG O2 Saturation ABG Base Excess ABG Hemoglobin ABG Carboxyhemoglobin POC ABG HHb (Measured) ABG Methemoglobin Kevon Test A-a O2 Difference Respiratory Index Hgb O2 Saturation Vent Mode Mechanical Rate FiO2 Tidal Volume PEEP Sodium Potassium Chloride Carbon Dioxide Anion Gap BUN Creatinine Est GFR ( Amer) Est GFR (Non-Af Amer) POC Glucose (mg/dL) 60 L 76 Random Glucose Calcium Phosphorus Magnesium Total Bilirubin AST ALT Alkaline Phosphatase Total Protein Albumin Globulin Albumin/Globulin Ratio Procalcitonin 07/25/18 07/25/18 07/25/18 05:39 06:46 06:46 WBC 6.4 RBC 3.03 L Hgb 8.9 L Hct 26.9 L MCV 88.9 MCH 29.5 MCHC 33.2 RDW 15.3 H Plt Count 215 MPV 9.0 Neut % (Auto) 66.8 Lymph % (Auto) 20.5 Citrus % (Auto) 9.4 Eos % (Auto) 2.5 Baso % (Auto) 0.8 Neut # (Auto) 4.3 Lymph # (Auto) 1.3 Citrus # (Auto) 0.6 Eos # (Auto) 0.2 Baso # (Auto) 0.0 APTT Puncture Site L brac pCO2 40 pO2 52 L HCO3 25.8 ABG pH 7.42 ABG Total CO2 27.1 ABG O2 Saturation 91.9 L ABG Base Excess 1.3 ABG Hemoglobin 11.5 L ABG Carboxyhemoglobin 2.4 H POC ABG HHb (Measured) 7.8 H ABG Methemoglobin 0.8 Kevon Test Na A-a O2 Difference 112.0 Respiratory Index 2.2 Hgb O2 Saturation 89.0 L Vent Mode Prvc Mechanical Rate 10 FiO2 30.0 Tidal Volume 440 PEEP 5 Sodium 145 Potassium 4.2 Chloride 109 H Carbon Dioxide 28 Anion Gap 13 BUN 24 H Creatinine 1.1 Est GFR ( Amer) > 60 Est GFR (Non-Af Amer) 52 POC Glucose (mg/dL) Random Glucose 68 Calcium 7.9 L Phosphorus 3.0 Magnesium 2.6 H Total Bilirubin 0.6 AST 34 ALT 41 Alkaline Phosphatase 262 H Total Protein 5.7 L Albumin 2.5 L Globulin 3.2 Albumin/Globulin Ratio 0.8 L Procalcitonin Attending/Attestation - Attestation I have personally seen and examined this patient.: Yes I have fully participated in the care of the patient.: Yes I have reviewed all pertinent clinical information: Yes Notes (Text): 07/25/18 15:00 I have seen and examined patient with GI fellow. Agree with above documentation with the following additions. In brief, this is a 52 year old female with history of DM, hyperthyroidism who initially presented to hospital with complaint of dyspnea and cough. Her hospital course has been extremely compl icated by development of respiratory distress s/p intubation with septic shock, cardiac arrest, and LV thrombus treated with heparin. She underwent tracheostomy yesterday and GI called for evaluation of potential PEG placement. There is no reported abdominal pain, nausea, vomiting, fever/chills, or change in bowel habits. She has been tolerating NGT feeding without any difficulty. DM Hyperthyroidism Respiratory failure, s/p intubation and tracheostomy Cardiac arrest, LV thrombus on heparin Dysphagia - Continue with antibiotic therapy as per medical team - Will need to carefully discuss risks/benefits of potential endoscopic gastrostomy placement with patient's family members. If they are agreeable, may consider procedure for tomorrow, NPO after midnight. - Will need to stop heparin 4-6 hours prior to procedure tomorrow to minimize potential bleeding related complications - Overall chcf patient prognosis is guarded, will continue to monitor patient clinical course
[2018-07-25 06:56] LABS: BASO % 0.8 % (0.0-2.0); EOS # 0.2 K/uL (0.0-0.7); EOS % 2.5 % (0.0-4.0); HEMOGLOBIN 8.9 g/dL (11.0-16.0); LYMPH # 1.3 K/uL (1.0-4.3); LYMPH % 20.5 % (20.0-40.0); MEAN CELL VOLUME 88.9 fL (81.0-99.0); MEAN CORPUSCULAR HEMOGLOBIN 29.5 pg (27.0-31.0); MEAN CORPUSCULAR HGB CONC 33.2 g/dL (33.0-37.0); MONO # 0.6 K/uL (0.0-0.8); MONO % 9.4 % (0.0-10.0); NEUT # 4.3 K/uL (1.8-7.0); NEUT % 66.8 % (50.0-75.0); RBC 3.03 Mil/uL (3.80-5.20); RED CELL DISTRIBUTION WIDTH 15.3 % (11.5-14.5); WHITE BLOOD COUNT 6.4 K/uL (4.8-10.8)
[2018-07-25 07:14] LABS: ALB/GLOB RATIO 0.8 (1.0-2.1); ALBUMIN 2.5 g/dL (3.5-5.0); ALT/SGPT 41 U/L (9-52); AST/SGOT 34 U/L (14-36); BLOOD UREA NITROGEN 24 mg/dL (7-17); CALCIUM 7.9 mg/dl (8.6-10.4); GFR NON-AFRICAN AMERICAN 52
--- NOTE | 2018-07-25 07:21 | CP.CCUPN ---
<Brayan Gonzalez - Last Filed: 07/25/18 17:46> CCU Subjective - Physician Review Events Since Last Encounter (Free Text): 07/25/18 17:46 No acute events Subjective (Free Text): 07/25/18 07:21 Patient was seen at bedside this morning. Per nurse, no acute events overnight. No new complaints. Of note, Conventions Assistant Dr. Murray and GI Fellow Dr. Amaya were at bedside with patient and obtained consent for PEG placement from patient's . Patient hemodynamically stable. 07/25/18 17:46 07/25/18 17:52 CCU Objective - Vital Signs / Intake & Output Vital Signs (Last 4 hours): Vital Signs Temp Pulse Resp BP Pulse Ox 07/25/18 07:00 100 H 13 95 07/25/18 06:58 97 H 13 128/67 95 07/25/18 06:00 95 H 14 94 L 07/25/18 05:58 95 H 17 111/64 94 L 07/25/18 05:00 75 10 L 95 07/25/18 04:58 76 10 L 95 07/25/18 04:00 98 F 91 H 10 L 97 07/25/18 03:58 86 10 L 91/49 L 96 Intake and Output (Last 8hrs): Intake & Output 07/24/18 07/25/18 07/25/18 22:59 06:59 14:59 Intake Total 508.9 494.4 41.8 Output Total 475 500 Balance 33.9 -5.6 41.8 Weight 104 lb 8 oz Intake: Intake, IV Amount 153.9 154.4 6.8 Right Hand 33.5 Right Proximal Port 100 100 Subclavian rt hand side port 20.4 54.4 6.8 Tube Feeding 245 280 35 Other 110 60 Output: Urine 475 500 Urethral ([place]) 475 500 - Physical Exam Head: Positive for: Atraumatic, Normocephalic Pupils: Positive for: PERRL. Negative for: Sluggish, Pinpoint Extroacular Muscles: Positive for: EOMI. Negative for: Gaze Palsy Conjunctiva: Positive for: Normal. Negative for: Injected, Icteric Mouth: Positive for: Moist Mucous Membranes Nose (External): Positive for: Atraumatic. Negative for: Abrasion, Contusion, Laceration Nose (Internal): Positive for: No Active Bleeding. Negative for: Epistaxis Neck: Positive for: Normal Range of Motion, Trachea Midline. Negative for: JVD Respiratory/Chest: Positive for: Good Air Exchange, Rhonchi (mild ronchi in bilateral bases), Other (intubated and ventilated). Negative for: Wheezes, Rale s Cardiovascular: Positive for: Normal S1, S2, Peripheal Pulses Present, Tachycardic. Negative for: Regular Rate and Rhythm Abdomen: Positive for: Normal Bowel Sounds. Negative for: Tenderness, Distention, Rebound, Guarding Upper Extremity: Positive for: Normal Inspection, NORMAL PULSES. Negative for: Cyanosis, Edema Lower Extremity: Positive for: Normal Inspection. Negative for: Edema, CALF TENDERNESS Neurological: Positive for: Other (weaning from sedation, intermittently opens eyes and tracks staff across room, but minimal spontaneous movements, not following verbal or pantomimed commands) Skin: Positive for: Warm, Dry, Normal Color Psychiatric: Positive for: Alert - Medications Active Medications: Active Medications Generic Name Dose Route Start Last Admin Trade Name Freq PRN Reason Stop Dose Admin Acetaminophen 650 mg 07/12/18 15:57 07/19/18 21:04 Tylenol 325mg Tab PO 650 mg Q6 PRN Administration Fever >100.4 F Albuterol/Ipratropium 3 ml 07/14/18 20:00 07/25/18 01:35 Duoneb 3 Mg/0.5 Mg (3 Ml) Ud INH 3 ml RQ6 MANOLO Administration Ascorbic Acid 1,000 mg 07/24/18 10:00 07/24/18 09:11 Vitamin C 500 Mg Tab NG 1,000 mg DAILY MANOLO Administration Aspirin 81 mg 07/17/18 10:00 07/23/18 09:17 Aspirin Chewable GT 81 mg DAILY MANOLO Administration Ergocalciferol 1 cap 07/11/18 12:45 07/18/18 12:07 Drisdol 50,000 Intl Units Cap PO 1 cap Q7D MANOLO Administration Furosemide 20 mg 07/17/18 18:00 07/24/18 17:12 Lasix IVP 20 mg BID MANOLO Administration Dexmedetomidine HCl 200 mcg/ 50 mls @ 2.91 mls/hr 07/15/18 19:55 07/24/18 11:30 Sodium Chloride IV 0 mcg/kg/hr TITR PRN 0 mls/hr Sedation Titration Protocol 0.2 MCG/KG/HR Meropenem 1 gm/ Sodium 100 mls @ 100 mls/hr 07/20/18 11:45 07/25/18 03:02 Chloride IVPB 100 mls/hr Q8H MANOLO Administration Protocol Heparin Sodium/Sodium Chloride 25,000 units in 250 mls @ 6.804 mls/hr 07/21/18 10:19 07/25/18 05:16 Heparin 16848 Units/250ml 1/2 Normal Saline IV 6.804 mls/hr .Q24H PRN Administration PROTOCOL Protocol 12 UNITS/KG/HR Dextrose 1,000 mls @ 30 mls/hr 07/24/18 08:00 07/24/18 08:06 Dextrose 10% In Water IV 30 mls/hr .Q24H MANOLO Administration Insulin Aspart 0 unit 07/11/18 08:28 07/25/18 05:46 Novolog SC Not Given Q6 MANOLO Protocol Insulin Glargine 20 unit 07/17/18 09:46 07/24/18 22:13 Lantus SC 20 u Q12 MANOLO Administration Lactobacillus Acidophilus 1 cap 07/08/18 20:00 07/24/18 20:05 Bacid Acidophilus PO 1 cap Q12H MANOLO Administration Methimazole 10 mg 07/11/18 10:00 07/24/18 17:31 Tapazole PO 10 mg TID MANOLO Administration Morphine Sulfate 2 mg 07/24/18 14:56 07/25/18 03:05 Morphine IV 2 mg Q8 PRN Administration Pain, moderate (4-7) Multivitamins/Vitamin C 5 ml 07/24/18 10:00 07/24/18 09:12 Multi-Delyn Liquid PO 5 ml DAILY MANOLO Administration Pantoprazole Sodium 40 mg 07/20/18 10:00 07/24/18 09:12 Protonix Susp PO 40 mg DAILY MANOLO Administration Propranolol HCl 5 mg 07/16/18 10:00 07/24/18 17:30 Inderal PO 5 mg TID MANOLO Administration Rosuvastatin Calcium 2.5 mg 07/13/18 22:00 07/24/18 22:13 Crestor PO 2.5 mg HS MANOLO Administration - Patient Studies Lab Studies: Microbiology Studies 07/20/18 11:18 Blood Culture - Preliminary Blood-Thru Central Line NO GROWTH AFTER 4 DAYS 07/20/18 11:18 Blood Culture - Preliminary Blood-Thru Central Line NO GROWTH AFTER 4 DAYS 07/23/18 13:04 Urine Culture - Final Urine,[place] No Growth (<1,000 CFU/ML) Lab Studies 07/25/18 07/25/18 07/25/18 Range/Units 06:46 06:46 05:39 WBC 6.4 (4.8-10.8) K/uL RBC 3.03 L (3.80-5.20) Mil/uL Hgb 8.9 L (11.0-16.0) g/dL Hct 26.9 L (34.0-47.0) % MCV 88.9 (81.0-99.0) fL MCH 29.5 (27.0-31.0) pg MCHC 33.2 (33.0-37.0) g/dL RDW 15.3 H (11.5-14.5) % Plt Count 215 (130-400) K/uL MPV 9.0 (7.2-11.7) fL Neut % (Auto) 66.8 (50.0-75.0) % Lymph % (Auto) 20.5 (20.0-40.0) % [place] % (Auto) 9.4 (0.0-10.0) % Eos % (Auto) 2.5 (0.0-4.0) % Baso % (Auto) 0.8 (0.0-2.0) % Neut # (Auto) 4.3 (1.8-7.0) K/uL Lymph # (Auto) 1.3 (1.0-4.3) K/uL [place] # (Auto) 0.6 (0.0-0.8) K/uL Eos # (Auto) 0.2 (0.0-0.7) K/uL Baso # (Auto) 0.0 (0.0-0.2) K/uL APTT (21-34) SECONDS Puncture Site L brac pCO2 40 (35-45) mm/Hg pO2 52 L (80-100) mm/Hg HCO3 25.8 (21-28) mmol/L ABG pH 7.42 (7.35-7.45) ABG Total CO2 27.1 (22-28) mmol/L ABG O2 Saturation 91.9 L (95-98) % ABG Base Excess 1.3 (-2.0-3.0) mmol/L ABG Hemoglobin 11.5 L (11.7-17.4) g/dL ABG Carboxyhemoglobin 2.4 H (0.5-1.5) % POC ABG HHb (Measured) 7.8 H (0.0-5.0) % ABG Methemoglobin 0.8 (0.0-3.0) % Kevon Test Na A-a O2 Difference 112.0 mm/Hg Respiratory Index 2.2 Hgb O2 Saturation 89.0 L (95.0-98.0) % Vent Mode Prvc Mechanical Rate 10 FiO2 30.0 % Tidal Volume 440 PEEP 5 Sodium 145 (132-148) mmol/L Potassium 4.2 (3.6-5.2) mmol/L Chloride 109 H (98-107) mmol/L Carbon Dioxide 28 (22-30) mmol/L Anion Gap 13 (10-20) BUN 24 H (7-17) mg/dL Creatinine 1.1 (0.7-1.2) mg/dL Est GFR ( Amer) > 60 Est GFR (Non-Af Amer) 52 POC Glucose (mg/dL) (65-110) mg/dL Random Glucose 68 (65-105) mg/dL Calcium 7.9 L (8.6-10.4) mg/dl Phosphorus 3.0 (2.5-4.5) mg/dL Magnesium 2.6 H (1.6-2.3) mg/dL Total Bilirubin 0.6 (0.2-1.3) mg/dL AST 34 (14-36) U/L ALT 41 (9-52) U/L Alkaline Phosphatase 262 H (38-126) U/L Total Protein 5.7 L (6.3-8.3) g/dL Albumin 2.5 L (3.5-5.0) g/dL Globulin 3.2 (2.2-3.9) gm/dL Albumin/Globulin Ratio 0.8 L (1.0-2.1) Procalcitonin (0.19-0.49) NG/ML Urine HCG, Qual (NEGATIVE) 10/23/18 10/23/18 10/23/18 Range/Units 05:38 05:34 02:27 WBC (4.8-10.8) K/uL RBC (3.80-5.20) Mil/uL Hgb (11.0-16.0) g/dL Hct (34.0-47.0) % MCV (81.0-99.0) fL MCH (27.0-31.0) pg MCHC (33.0-37.0) g/dL RDW (11.5-14.5) % Plt Count (130-400) K/uL MPV (7.2-11.7) fL Neut % (Auto) (50.0-75.0) % Lymph % (Auto) (20.0-40.0) % [place] % (Auto) (0.0-10.0) % Eos % (Auto) (0.0-4.0) % Baso % (Auto) (0.0-2.0) % Neut # (Auto) (1.8-7.0) K/uL Lymph # (Auto) (1.0-4.3) K/uL [place] # (Auto) (0.0-0.8) K/uL Eos # (Auto) (0.0-0.7) K/uL Baso # (Auto) (0.0-0.2) K/uL APTT 52 H (21-34) SECONDS Puncture Site pCO2 (35-45) mm/Hg pO2 (80-100) mm/Hg HCO3 (21-28) mmol/L ABG pH (7.35-7.45) ABG Total CO2 (22-28) mmol/L ABG O2 Saturation (95-98) % ABG Base Excess (-2.0-3.0) mmol/L ABG Hemoglobin (11.7-17.4) g/dL ABG Carboxyhemoglobin (0.5-1.5) % POC ABG HHb (Measured) (0.0-5.0) % ABG Methemoglobin (0.0-3.0) % Kevon Test A-a O2 Difference mm/Hg Respiratory Index Hgb O2 Saturation (95.0-98.0) % Vent Mode Mechanical Rate FiO2 % Tidal Volume PEEP Sodium (132-148) mmol/L Potassium (3.6-5.2) mmol/L Chloride (98-107) mmol/L Carbon Dioxide (22-30) mmol/L Anion Gap (10-20) BUN (7-17) mg/dL Creatinine (0.7-1.2) mg/dL Est GFR ( Amer) Est GFR (Non-Af Amer) POC Glucose (mg/dL) 76 60 L (65-110) mg/dL Random Glucose (65-105) mg/dL Calcium (8.6-10.4) mg/dl Phosphorus (2.5-4.5) mg/dL Magnesium (1.6-2.3) mg/dL Total Bilirubin (0.2-1.3) mg/dL AST (14-36) U/L ALT (9-52) U/L Alkaline Phosphatase (38-126) U/L Total Protein (6.3-8.3) g/dL Albumin (3.5-5.0) g/dL Globulin (2.2-3.9) gm/dL Albumin/Globulin Ratio (1.0-2.1) Procalcitonin (0.19-0.49) NG/ML Urine HCG, Qual (NEGATIVE) 07/24/18 07/24/18 07/24/18 Range/Units 23:35 20:12 17:43 WBC (4.8-10.8) K/uL RBC (3.80-5.20) Mil/uL Hgb (11.0-16.0) g/dL Hct (34.0-47.0) % MCV (81.0-99.0) fL MCH (27.0-31.0) pg MCHC (33.0-37.0) g/dL RDW (11.5-14.5) % Plt Count (130-400) K/uL MPV (7.2-11.7) fL Neut % (Auto) (50.0-75.0) % Lymph % (Auto) (20.0-40.0) % [place] % (Auto) (0.0-10.0) % Eos % (Auto) (0.0-4.0) % Baso % (Auto) (0.0-2.0) % Neut # (Auto) (1.8-7.0) K/uL Lymph # (Auto) (1.0-4.3) K/uL [place] # (Auto) (0.0-0.8) K/uL Eos # (Auto) (0.0-0.7) K/uL Baso # (Auto) (0.0-0.2) K/uL APTT 52 H D (21-34) SECONDS Puncture Site pCO2 (35-45) mm/Hg pO2 (80-100) mm/Hg HCO3 (21-28) mmol/L ABG pH (7.35-7.45) ABG Total CO2 (22-28) mmol/L ABG O2 Saturation (95-98) % ABG Base Excess (-2.0-3.0) mmol/L ABG Hemoglobin (11.7-17.4) g/dL ABG Carboxyhemoglobin (0.5-1.5) % POC ABG HHb (Measured) (0.0-5.0) % ABG Methemoglobin (0.0-3.0) % Kevon Test A-a O2 Difference mm/Hg Respiratory Index Hgb O2 Saturation (95.0-98.0) % Vent Mode Mechanical Rate FiO2 % Tidal Volume PEEP Sodium (132-148) mmol/L Potassium (3.6-5.2) mmol/L Chloride (98-107) mmol/L Carbon Dioxide (22-30) mmol/L Anion Gap (10-20) BUN (7-17) mg/dL Creatinine (0.7-1.2) mg/dL Est GFR ( Amer) Est GFR (Non-Af Amer) POC Glucose (mg/dL) 107 (65-110) mg/dL Random Glucose (65-105) mg/dL Calcium (8.6-10.4) mg/dl Phosphorus (2.5-4.5) mg/dL Magnesium (1.6-2.3) mg/dL Total Bilirubin (0.2-1.3) mg/dL AST (14-36) U/L ALT (9-52) U/L Alkaline Phosphatase (38-126) U/L Total Protein (6.3-8.3) g/dL Albumin (3.5-5.0) g/dL Globulin (2.2-3.9) gm/dL Albumin/Globulin Ratio (1.0-2.1) Procalcitonin 0.75 H (0.19-0.49) NG/ML Urine HCG, Qual (NEGATIVE) 07/24/18 07/24/18 07/24/18 Range/Units 17:41 17:38 10:55 WBC (4.8-10.8) K/uL RBC (3.80-5.20) Mil/uL Hgb (11.0-16.0) g/dL Hct (34.0-47.0) % MCV (81.0-99.0) fL MCH (27.0-31.0) pg MCHC (33.0-37.0) g/dL RDW (11.5-14.5) % Plt Count (130-400) K/uL MPV (7.2-11.7) fL Neut % (Auto) (50.0-75.0) % Lymph % (Auto) (20.0-40.0) % [place] % (Auto) (0.0-10.0) % Eos % (Auto) (0.0-4.0) % Baso % (Auto) (0.0-2.0) % Neut # (Auto) (1.8-7.0) K/uL Lymph # (Auto) (1.0-4.3) K/uL [place] # (Auto) (0.0-0.8) K/uL Eos # (Auto) (0.0-0.7) K/uL Baso # (Auto) (0.0-0.2) K/uL APTT (21-34) SECONDS Puncture Site pCO2 (35-45) mm/Hg pO2 (80-100) mm/Hg HCO3 (21-28) mmol/L ABG pH (7.35-7.45) ABG Total CO2 (22-28) mmol/L ABG O2 Saturation (95-98) % ABG Base Excess (-2.0-3.0) mmol/L ABG Hemoglobin (11.7-17.4) g/dL ABG Carboxyhemoglobin (0.5-1.5) % POC ABG HHb (Measured) (0.0-5.0) % ABG Methemoglobin (0.0-3.0) % Kevon Test A-a O2 Difference mm/Hg Respiratory Index Hgb O2 Saturation (95.0-98.0) % Vent Mode Mechanical Rate FiO2 % Tidal Volume PEEP Sodium (132-148) mmol/L Potassium (3.6-5.2) mmol/L Chloride (98-107) mmol/L Carbon Dioxide (22-30) mmol/L Anion Gap (10-20) BUN (7-17) mg/dL Creatinine (0.7-1.2) mg/dL Est GFR ( Amer) Est GFR (Non-Af Amer) POC Glucose (mg/dL) 81 39 L 105 (65-110) mg/dL Random Glucose (65-105) mg/dL Calcium (8.6-10.4) mg/dl Phosphorus (2.5-4.5) mg/dL Magnesium (1.6-2.3) mg/dL Total Bilirubin (0.2-1.3) mg/dL AST (14-36) U/L ALT (9-52) U/L Alkaline Phosphatase (38-126) U/L Total Protein (6.3-8.3) g/dL Albumin (3.5-5.0) g/dL Globulin (2.2-3.9) gm/dL Albumin/Globulin Ratio (1.0-2.1) Procalcitonin (0.19-0.49) NG/ML Urine HCG, Qual (NEGATIVE) 07/24/18 07/24/18 07/23/18 Range/Units 10:22 06:35 23:33 WBC (4.8-10.8) K/uL RBC (3.80-5.20) Mil/uL Hgb (11.0-16.0) g/dL Hct (34.0-47.0) % MCV (81.0-99.0) fL MCH (27.0-31.0) pg MCHC (33.0-37.0) g/dL RDW (11.5-14.5) % Plt Count (130-400) K/uL MPV (7.2-11.7) fL Neut % (Auto) (50.0-75.0) % Lymph % (Auto) (20.0-40.0) % [place] % (Auto) (0.0-10.0) % Eos % (Auto) (0.0-4.0) % Baso % (Auto) (0.0-2.0) % Neut # (Auto) (1.8-7.0) K/uL Lymph # (Auto) (1.0-4.3) K/uL [place] # (Auto) (0.0-0.8) K/uL Eos # (Auto) (0.0-0.7) K/uL Baso # (Auto) (0.0-0.2) K/uL APTT (21-34) SECONDS Puncture Site pCO2 (35-45) mm/Hg pO2 (80-100) mm/Hg HCO3 (21-28) mmol/L ABG pH (7.35-7.45) ABG Total CO2 (22-28) mmol/L ABG O2 Saturation (95-98) % ABG Base Excess (-2.0-3.0) mmol/L ABG Hemoglobin (11.7-17.4) g/dL ABG Carboxyhemoglobin (0.5-1.5) % POC ABG HHb (Measured) (0.0-5.0) % ABG Methemoglobin (0.0-3.0) % [place]evon Test A-a O2 Difference mm/Hg Respiratory Index Hgb O2 Saturation (95.0-98.0) % Vent Mode Mechanical Rate FiO2 % Tidal Volume PEEP Sodium (132-148) mmol/L Potassium (3.6-5.2) mmol/L Chloride (98-107) mmol/L Carbon Dioxide (22-30) mmol/L Anion Gap (10-20) BUN (7-17) mg/dL Creatinine (0.7-1.2) mg/dL Est GFR ( Amer) Est GFR (Non-Af Amer) POC Glucose (mg/dL) 75 97 (65-110) mg/dL Random Glucose (65-105) mg/dL Calcium (8.6-10.4) mg/dl Phosphorus (2.5-4.5) mg/dL Magnesium (1.6-2.3) mg/dL Total Bilirubin (0.2-1.3) mg/dL AST (14-36) U/L ALT (9-52) U/L Alkaline Phosphatase (38-126) U/L Total Protein (6.3-8.3) g/dL Albumin (3.5-5.0) g/dL Globulin (2.2-3.9) gm/dL Albumin/Globulin Ratio (1.0-2.1) Procalcitonin (0.19-0.49) NG/ML Urine HCG, Qual Negative (NEGATIVE) 07/23/18 07/23/18 07/23/18 Range/Units 17:58 11:41 06:05 WBC (4.8-10.8) K/uL RBC (3.80-5.20) Mil/uL Hgb (11.0-16.0) g/dL Hct (34.0-47.0) % MCV (81.0-99.0) fL MCH (27.0-31.0) pg MCHC (33.0-37.0) g/dL RDW (11.5-14.5) % Plt Count (130-400) K/uL MPV (7.2-11.7) fL Neut % (Auto) (50.0-75.0) % Lymph % (Auto) (20.0-40.0) % [place] % (Auto) (0.0-10.0) % Eos % (Auto) (0.0-4.0) % Baso % (Auto) (0.0-2.0) % Neut # (Auto) (1.8-7.0) K/uL Lymph # (Auto) (1.0-4.3) K/uL [place] # (Auto) (0.0-0.8) K/uL Eos # (Auto) (0.0-0.7) K/uL Baso # (Auto) (0.0-0.2) K/uL APTT (21-34) SECONDS Puncture Site pCO2 (35-45) mm/Hg pO2 (80-100) mm/Hg HCO3 (21-28) mmol/L ABG pH (7.35-7.45) ABG Total CO2 (22-28) mmol/L ABG O2 Saturation (95-98) % ABG Base Excess (-2.0-3.0) mmol/L ABG Hemoglobin (11.7-17.4) g/dL ABG Carboxyhemoglobin (0.5-1.5) % POC ABG HHb (Measured) (0.0-5.0) % ABG Methemoglobin (0.0-3.0) % Kevon Test A-a O2 Difference mm/Hg Respiratory Index Hgb O2 Saturation (95.0-98.0) % Vent Mode Mechanical Rate FiO2 % Tidal Volume PEEP Sodium (132-148) mmol/L Potassium (3.6-5.2) mmol/L Chloride (98-107) mmol/L Carbon Dioxide (22-30) mmol/L Anion Gap (10-20) BUN (7-17) mg/dL Creatinine (0.7-1.2) mg/dL Est GFR ( Amer) Est GFR (Non-Af Amer) POC Glucose (mg/dL) 81 99 100 (65-110) mg/dL Random Glucose (65-105) mg/dL Calcium (8.6-10.4) mg/dl Phosphorus (2.5-4.5) mg/dL Magnesium (1.6-2.3) mg/dL Total Bilirubin (0.2-1.3) mg/dL AST (14-36) U/L ALT (9-52) U/L Alkaline Phosphatase (38-126) U/L Total Protein (6.3-8.3) g/dL Albumin (3.5-5.0) g/dL Globulin (2.2-3.9) gm/dL Albumin/Globulin Ratio (1.0-2.1) Procalcitonin (0.19-0.49) NG/ML Urine HCG, Qual (NEGATIVE) 07/23/18 Range/Units 00:26 WBC (4.8-10.8) K/uL RBC (3.80-5.20) Mil/uL Hgb (11.0-16.0) g/dL Hct (34.0-47.0) % MCV (81.0-99.0) fL MCH (27.0-31.0) pg MCHC (33.0-37.0) g/dL RDW (11.5-14.5) % Plt Count (130-400) K/uL MPV (7.2-11.7) fL Neut % (Auto) (50.0-75.0) % Lymph % (Auto) (20.0-40.0) % [place] % (Auto) (0.0-10.0) % Eos % (Auto) (0.0-4.0) % Baso % (Auto) (0.0-2.0) % Neut # (Auto) (1.8-7.0) K/uL Lymph # (Auto) (1.0-4.3) K/uL [place] # (Auto) (0.0-0.8) K/uL Eos # (Auto) (0.0-0.7) K/uL Baso # (Auto) (0.0-0.2) K/uL APTT (21-34) SECONDS Puncture Site pCO2 (35-45) mm/Hg pO2 (80-100) mm/Hg HCO3 (21-28) mmol/L ABG pH (7.35-7.45) ABG Total CO2 (22-28) mmol/L ABG O2 Saturation (95-98) % ABG Base Excess (-2.0-3.0) mmol/L ABG Hemoglobin (11.7-17.4) g/dL ABG Carboxyhemoglobin (0.5-1.5) % POC ABG HHb (Measured) (0.0-5.0) % ABG Methemoglobin (0.0-3.0) % Kevon Test A-a O2 Difference mm/Hg Respiratory Index Hgb O2 Saturation (95.0-98.0) % Vent Mode Mechanical Rate FiO2 % Tidal Volume PEEP Sodium (132-148) mmol/L Potassium (3.6-5.2) mmol/L Chloride (98-107) mmol/L Carbon Dioxide (22-30) mmol/L Anion Gap (10-20) BUN (7-17) mg/dL Creatinine (0.7-1.2) mg/dL Est GFR ( Amer) Est GFR (Non-Af Amer) POC Glucose (mg/dL) 97 (65-110) mg/dL Random Glucose (65-105) mg/dL Calcium (8.6-10.4) mg/dl Phosphorus (2.5-4.5) mg/dL Magnesium (1.6-2.3) mg/dL Total Bilirubin (0.2-1.3) mg/dL AST (14-36) U/L ALT (9-52) U/L Alkaline Phosphatase (38-126) U/L Total Protein (6.3-8.3) g/dL Albumin (3.5-5.0) g/dL Globulin (2.2-3.9) gm/dL Albumin/Globulin Ratio (1.0-2.1) Procalcitonin (0.19-0.49) NG/ML Urine HCG, Qual (NEGATIVE) Laboratory Results - last 24 hr 07/23/18 07/23/18 07/23/18 00:26 06:05 11:41 WBC RBC Hgb Hct MCV MCH MCHC RDW Plt Count MPV Neut % (Auto) Lymph % (Auto) [place] % (Auto) Eos % (Auto) Baso % (Auto) Neut # (Auto) Lymph # (Auto) [place] # (Auto) Eos # (Auto) Baso # (Auto) APTT Puncture Site pCO2 pO2 HCO3 ABG pH ABG Total CO2 ABG O2 Saturation ABG Base Excess ABG Hemoglobin ABG Carboxyhemoglobin POC ABG HHb (Measured) ABG Methemoglobin Kevon Test A-a O2 Difference Respiratory Index Hgb O2 Saturation Vent Mode Mechanical Rate FiO2 Tidal Volume PEEP Sodium Potassium Chloride Carbon Dioxide Anion Gap BUN Creatinine Est GFR ( Amer) Est GFR (Non-Af Amer) POC Glucose (mg/dL) 97 100 99 Random Glucose Calcium Phosphorus Magnesium Total Bilirubin AST ALT Alkaline Phosphatase Total Protein Albumin Globulin Albumin/Globulin Ratio Procalcitonin Urine HCG, Qual 07/23/18 07/23/18 07/24/18 17:58 23:33 06:35 WBC RBC Hgb Hct MCV MCH MCHC RDW Plt Count MPV Neut % (Auto) Lymph % (Auto) [place] % (Auto) Eos % (Auto) Baso % (Auto) Neut # (Auto) Lymph # (Auto) [place] # (Auto) Eos # (Auto) Baso # (Auto) APTT Puncture Site pCO2 pO2 HCO3 ABG pH ABG Total CO2 ABG O2 Saturation ABG Base Excess ABG Hemoglobin ABG Carboxyhemoglobin POC ABG HHb (Measured) ABG Methemoglobin [place] Test A-a O2 Difference Respiratory Index Hgb O2 Saturation Vent Mode Mechanical Rate FiO2 Tidal Volume PEEP Sodium Potassium Chloride Carbon Dioxide Anion Gap BUN Creatinine Est GFR ( Amer) Est GFR (Non-Af Amer) POC Glucose (mg/dL) 81 97 75 Random Glucose Calcium Phosphorus Magnesium Total Bilirubin AST ALT Alkaline Phosphatase Total Protein Albumin Globulin Albumin/Globulin Ratio Procalcitonin Urine HCG, Qual 07/24/18 07/24/18 07/24/18 10:22 10:55 17:38 WBC RBC Hgb Hct MCV MCH MCHC RDW Plt Count MPV Neut % (Auto) Lymph % (Auto) [place] % (Auto) Eos % (Auto) Baso % (Auto) Neut # (Auto) Lymph # (Auto) [place] # (Auto) Eos # (Auto) Baso # (Auto) APTT Puncture Site pCO2 pO2 HCO3 ABG pH ABG Total CO2 ABG O2 Saturation ABG Base Excess ABG Hemoglobin ABG Carboxyhemoglobin POC ABG HHb (Measured) ABG Methemoglobin [place] Test A-a O2 Difference Respiratory Index Hgb O2 Saturation Vent Mode Mechanical Rate FiO2 Tidal Volume PEEP Sodium Potassium Chloride Carbon Dioxide Anion Gap BUN Creatinine Est GFR ( Amer) Est GFR (Non-Af Amer) POC Glucose (mg/dL) 105 39 L Random Glucose Calcium Phosphorus Magnesium Total Bilirubin AST ALT Alkaline Phosphatase Total Protein Albumin Globulin Albumin/Globulin Ratio Procalcitonin Urine HCG, Qual Negative 07/24/18 07/24/18 07/24/18 17:41 17:43 20:12 WBC RBC Hgb Hct MCV MCH MCHC RDW Plt Count MPV Neut % (Auto) Lymph % (Auto) [place] % (Auto) Eos % (Auto) Baso % (Auto) Neut # (Auto) Lymph # (Auto) [place] # (Auto) Eos # (Auto) Baso # (Auto) APTT 52 H D Puncture Site pCO2 pO2 HCO3 ABG pH ABG Total CO2 ABG O2 Saturation ABG Base Excess ABG Hemoglobin ABG Carboxyhemoglobin POC ABG HHb (Measured) ABG Methemoglobin [place] Test A-a O2 Difference Respiratory Index Hgb O2 Saturation Vent Mode Mechanical Rate FiO2 Tidal Volume PEEP Sodium Potassium Chloride Carbon Dioxide Anion Gap BUN Creatinine Est GFR ( Amer) Est GFR (Non-Af Amer) POC Glucose (mg/dL) 81 Random Glucose Calcium Phosphorus Magnesium Total Bilirubin AST ALT Alkaline Phosphatase Total Protein Albumin Globulin Albumin/Globulin Ratio Procalcitonin 0.75 H Urine HCG, Qual 07/24/18 07/25/18 07/25/18 23:35 02:27 05:34 WBC RBC Hgb Hct MCV MCH MCHC RDW Plt Count MPV Neut % (Auto) Lymph % (Auto) [place] % (Auto) Eos % (Auto) Baso % (Auto) Neut # (Auto) Lymph # (Auto) [place] # (Auto) Eos # (Auto) Baso # (Auto) APTT 52 H Puncture Site pCO2 pO2 HCO3 ABG pH ABG Total CO2 ABG O2 Saturation ABG Base Excess ABG Hemoglobin ABG Carboxyhemoglobin POC ABG HHb (Measured) ABG Methemoglobin [place] Test A-a O2 Difference Respiratory Index Hgb O2 Saturation Vent Mode Mechanical Rate FiO2 Tidal Volume PEEP Sodium Potassium Chloride Carbon Dioxide Anion Gap BUN Creatinine Est GFR ( Amer) Est GFR (Non-Af Amer) POC Glucose (mg/dL) 107 60 L Random Glucose Calcium Phosphorus Magnesium Total Bilirubin AST ALT Alkaline Phosphatase Total Protein Albumin Globulin Albumin/Globulin Ratio Procalcitonin Urine HCG, Qual 07/25/18 07/25/18 07/25/18 05:38 05:39 06:46 WBC 6.4 RBC 3.03 L Hgb 8.9 L Hct 26.9 L MCV 88.9 MCH 29.5 MCHC 33.2 RDW 15.3 H Plt Count 215 MPV 9.0 Neut % (Auto) 66.8 Lymph % (Auto) 20.5 [place] % (Auto) 9.4 Eos % (Auto) 2.5 Baso % (Auto) 0.8 Neut # (Auto) 4.3 Lymph # (Auto) 1.3 [place] # (Auto) 0.6 Eos # (Auto) 0.2 Baso # (Auto) 0.0 APTT Puncture Site L brac pCO2 40 pO2 52 L HCO3 25.8 ABG pH 7.42 ABG Total CO2 27.1 ABG O2 Saturation 91.9 L ABG Base Excess 1.3 ABG Hemoglobin 11.5 L ABG Carboxyhemoglobin 2.4 H POC ABG HHb (Measured) 7.8 H ABG Methemoglobin 0.8 [place] Test Na A-a O2 Difference 112.0 Respiratory Index 2.2 Hgb O2 Saturation 89.0 L Vent Mode Prvc Mechanical Rate 10 FiO2 30.0 Tidal Volume 440 PEEP 5 Sodium Potassium Chloride Carbon Dioxide Anion Gap BUN Creatinine Est GFR ( Amer) Est GFR (Non-Af Amer) POC Glucose (mg/dL) 76 Random Glucose Calcium Phosphorus Magnesium Total Bilirubin AST ALT Alkaline Phosphatase Total Protein Albumin Globulin Albumin/Globulin Ratio Procalcitonin Urine HCG, Qual 07/25/18 06:46 WBC RBC Hgb Hct MCV MCH MCHC RDW Plt Count MPV Neut % (Auto) Lymph % (Auto) [place] % (Auto) Eos % (Auto) Baso % (Auto) Neut # (Auto) Lymph # (Auto) [place] # (Auto) Eos # (Auto) Baso # (Auto) APTT Puncture Site pCO2 pO2 HCO3 ABG pH ABG Total CO2 ABG O2 Saturation ABG Base Excess ABG Hemoglobin ABG Carboxyhemoglobin POC ABG HHb (Measured) ABG Methemoglobin [place] Test A-a O2 Difference Respiratory Index Hgb O2 Saturation Vent Mode Mechanical Rate FiO2 Tidal Volume PEEP Sodium 145 Potassium 4.2 Chloride 109 H Carbon Dioxide 28 Anion Gap 13 BUN 24 H Creatinine 1.1 Est GFR ( Amer) > 60 Est GFR (Non-Af Amer) 52 POC Glucose (mg/dL) Random Glucose 68 Calcium 7.9 L Phosphorus 3.0 Magnesium 2.6 H Total Bilirubin 0.6 AST 34 ALT 41 Alkaline Phosphatase 262 H Total Protein 5.7 L Albumin 2.5 L Globulin 3.2 Albumin/Globulin Ratio 0.8 L Procalcitonin Urine HCG, Qual Fingerstick Blood Sugar Results: 81 Review of Systems - Review of Systems Systems not reviewed;Unavailable: Intubated Assessment/Plan - Assessment and Plan (Free Text) Assessment: This is a 52 yo female with PMH of DM2 and hypercholesterolemia who presented to with cough, post-tussive emesis, and malaise x2-3 weeks. She was admitted to the ICU for respiratory failure and acute renal failure. Of note, patient was CODE BLUE on 07/10 (V-tach). Remains intubated after failing extubation, as patient vomited just hours after extubation. Today she is status-post tracheostomy POD-[address] Melchor. Patient is hemodynamically stable, and is pending PEG placement with [employer] Assistant Dr. Murray and GI Fellow Dr. Amaya. Plan: Neuro - Anoxic brain injury - Hemodynamically stable - Precedex discontinued Pulm - Hypoxic respiratory failure secondary to pulmonary congestion, renal failure - Goal SaO2 > 92% and paO2 > 55 - (Po2/FiO2)x100% = 173 * FiO2 --> increased from 30% to 50% (for goal PO2/FiO2 ratio > 300) - Duonebs 2 ml INH RQ4 - Continue cpap trials - Status-post tracheostomy 07/24 POD-[address] Melchor - CXR official report (07/25): worsening infiltrates, satisfactory position of recently placed tracheostomy device, Satisfactory position of remaining support apparatus including venous access catheter and recently placed nasogastric tube CV - Cardiac arrest from unknown etiology - Cardiology consulted. Appreciate recs. - Repeat ECHO from shows left ventricular thrombus; - Doppler show LLE DVT, right cephalic vein thrombus - Restarted Heparin drip (held for tracheostomy placement) - Continue daily aspirin 81 mg, propranolol 5 mg PO TID, crestor 2.5 mg PO HS - Maintain MAP>70 - Propranolol 5mg PO TID GI - Continue glucerna for tube feeds @ 35cc - Protonix 40 mg IV daily - Dr. Murray consulted for PEG placement (recommendations appreciated) * Stop Tube Feedings after midnight prior to scheduled PEG * Stop anticoagulation 4 hours prior to scheduled PEG Renal - Acute renal failure resolving - Avoid nephrotoxic drugs Heme: - No acute issues - Continue to monitor H/H Endo - ISS for coverage, q6h - Discontinued Lantus; POC Glucose=60--> 76 (05:34 --> recheck 05:38AM) - Methimazole 10 mg PO TID Infectious Disease - Merrem 1 gm daily - Discontinued: vancomycin 1 gm daily - Negative cultures - ID following, appreciate all recs Dispo: pending another PS/CPAP trial, tracheostomy placed 07/24 FEN: NPO, on Tube Feeds Access: Peripheral IVs, right subclavian TLC, ETT, OGT Consults: Palliative, Endo, Nephro, Cardio, Neuro, Cardio, GI Ppx: Protonix for GI, SCDs Code status: FULL Next of kin: Martina Isaacs () Patient seen, reviewed, and case discussed with attending, Dr. Neville Gonzalez PGY-1 <Errol Lozada S - Last Filed: 07/25/18 18:25> CCU Subjective - Physician Review Critical Care Time Spent (in minutes): 40 CCU Objective - Vital Signs / Intake & Output Intake and Output (Last 8hrs): Intake & Output 07/25/18 07/25/18 07/25/18 06:59 14:59 22:59 Intake Total 494.4 339.0 Output Total 500 245 Balance -5.6 94.0 Weight 104 lb 8 oz Intake: Intake, IV Amount 154.4 164.0 Right Proximal Port 100 130 Subclavian rt hand side port 54.4 34.0 Tube Feeding 280 175 Other 60 Output: Urine 500 245 Urethral ([place]) 500 245 - Medications Active Medications: Active Medications Generic Name Dose Route Start Last Admin Trade Name Freq PRN Reason Stop Dose Admin Acetaminophen 650 mg 07/12/18 15:57 07/19/18 21:04 Tylenol 325mg Tab PO 650 mg Q6 PRN Administration Fever >100.4 F Albuterol/Ipratropium 3 ml 07/14/18 20:00 07/25/18 13:59 Duoneb 3 Mg/0.5 Mg (3 Ml) Ud INH 3 ml RQ6 MANOLO Administration Ascorbic Acid 1,000 mg 07/24/18 10:00 07/25/18 09:17 Vitamin C 500 Mg Tab NG 1,000 mg DAILY MANOLO Administration Aspirin 81 mg 07/17/18 10:00 07/25/18 09:17 Aspirin Chewable GT 81 mg DAILY MANOLO Administration Ergocalciferol 1 cap 07/11/18 12:45 07/25/18 14:15 Drisdol 50,000 Intl Units Cap PO 1 cap Q7D MANOLO Administration Furosemide 20 mg 07/17/18 18:00 07/25/18 09:17 Lasix IVP 20 mg BID MANOLO Administration Meropenem 1 gm/ Sodium 100 mls @ 100 mls/hr 07/20/18 11:45 07/25/18 10:54 Chloride IVPB 100 mls/hr Q8H MANOLO Administration Protocol Heparin Sodium/Sodium Chloride 25,000 units in 250 mls @ 6.804 mls/hr 07/21/18 10:19 07/25/18 05:16 Heparin 10880 Units/250ml 1/2 Normal Saline IV 6.804 mls/hr .Q24H PRN Administration PROTOCOL Protocol 12 UNITS/KG/HR Dextrose 1,000 mls @ 30 mls/hr 07/24/18 08:00 07/25/18 08:37 Dextrose 10% In Water IV 30 mls/hr .Q24H MANOLO Administration Insulin Aspart 0 unit 07/11/18 08:28 07/25/18 12:00 Novolog SC Not Given Q6 MANOLO Protocol Insulin Glargine 20 unit 07/17/18 09:46 07/24/18 22:13 Lantus SC 20 u Q12 MANOLO Administration Lactobacillus Acidophilus 1 cap 07/08/18 20:00 07/25/18 09:11 Bacid Acidophilus PO 1 cap Q12H MANOLO Administration Methimazole 10 mg 07/25/18 18:00 Tapazole PO TID MANOLO Morphine Sulfate 2 mg 07/24/18 14:56 07/25/18 03:05 Morphine IV 2 mg Q8 PRN Administration Pain, moderate (4-7) Multivitamins/Vitamin C 5 ml 07/24/18 10:00 07/25/18 09:18 Multi-Delyn Liquid PO 5 ml DAILY MANOLO Administration Pantoprazole Sodium 40 mg 07/20/18 10:00 07/25/18 09:17 Protonix Susp PO 40 mg DAILY MANOLO Administration Propranolol HCl 5 mg 07/16/18 10:00 07/25/18 17:57 Inderal PO 5 mg TID MANOLO Administration Rosuvastatin Calcium 2.5 mg 07/13/18 22:00 07/24/18 22:13 Crestor PO 2.5 mg HS MANOLO Administration - Patient Studies Lab Studies: Microbiology Studies 07/10/18 11:01 Mycobacterial Culture - Preliminary Other: Please Indicate 07/20/18 11:18 Blood Culture - Final Blood-Thru Central Line NO GROWTH AFTER 5 DAYS Gram Stain - Final TEST NOT PERFORMED 07/20/18 11:18 Blood Culture - Final Blood-Thru Central Line NO GROWTH AFTER 5 DAYS Gram Stain - Final TEST NOT PERFORMED Lab Studies 07/25/18 07/25/18 07/25/18 Range/Units 06:46 06:46 05:39 WBC 6.4 (4.8-10.8) K/uL RBC 3.03 L (3.80-5.20) Mil/uL Hgb 8.9 L (11.0-16.0) g/dL Hct 26.9 L (34.0-47.0) % MCV 88.9 (81.0-99.0) fL MCH 29.5 (27.0-31.0) pg MCHC 33.2 (33.0-37.0) g/dL RDW 15.3 H (11.5-14.5) % Plt Count 215 (130-400) K/uL MPV 9.0 (7.2-11.7) fL Neut % (Auto) 66.8 (50.0-75.0) % Lymph % (Auto) 20.5 (20.0-40.0) % [place] % (Auto) 9.4 (0.0-10.0) % Eos % (Auto) 2.5 (0.0-4.0) % Baso % (Auto) 0.8 (0.0-2.0) % Neut # (Auto) 4.3 (1.8-7.0) K/uL Lymph # (Auto) 1.3 (1.0-4.3) K/uL [place] # (Auto) 0.6 (0.0-0.8) K/uL Eos # (Auto) 0.2 (0.0-0.7) K/uL Baso # (Auto) 0.0 (0.0-0.2) K/uL APTT (21-34) SECONDS Puncture Site L brac pCO2 40 (35-45) mm/Hg pO2 52 L (80-100) mm/Hg HCO3 25.8 (21-28) mmol/L ABG pH 7.42 (7.35-7.45) ABG Total CO2 27.1 (22-28) mmol/L ABG O2 Saturation 91.9 L (95-98) % ABG Base Excess 1.3 (-2.0-3.0) mmol/L ABG Hemoglobin 11.5 L (11.7-17.4) g/dL ABG Carboxyhemoglobin 2.4 H (0.5-1.5) % POC ABG HHb (Measured) 7.8 H (0.0-5.0) % ABG Methemoglobin 0.8 (0.0-3.0) % [place] Test Na A-a O2 Difference 112.0 mm/Hg Respiratory Index 2.2 Hgb O2 Saturation 89.0 L (95.0-98.0) % Vent Mode Prvc Mechanical Rate 10 FiO2 30.0 % Tidal Volume 440 PEEP 5 Sodium 145 (132-148) mmol/L Potassium 4.2 (3.6-5.2) mmol/L Chloride 109 H (98-107) mmol/L Carbon Dioxide 28 (22-30) mmol/L Anion Gap 13 (10-20) BUN 24 H (7-17) mg/dL Creatinine 1.1 (0.7-1.2) mg/dL Est GFR ( Amer) > 60 Est GFR (Non-Af Amer) 52 POC Glucose (mg/dL) (65-110) mg/dL Random Glucose 68 (65-105) mg/dL Calcium 7.9 L (8.6-10.4) mg/dl Phosphorus 3.0 (2.5-4.5) mg/dL Magnesium 2.6 H (1.6-2.3) mg/dL Total Bilirubin 0.6 (0.2-1.3) mg/dL AST 34 (14-36) U/L ALT 41 (9-52) U/L Alkaline Phosphatase 262 H (38-126) U/L Total Protein 5.7 L (6.3-8.3) g/dL Albumin 2.5 L (3.5-5.0) g/dL Globulin 3.2 (2.2-3.9) gm/dL Albumin/Globulin Ratio 0.8 L (1.0-2.1) Procalcitonin (0.19-0.49) NG/ML 07/25/18 07/25/18 07/25/18 Range/Units 05:38 05:34 02:27 WBC (4.8-10.8) K/uL RBC (3.80-5.20) Mil/uL Hgb (11.0-16.0) g/dL Hct (34.0-47.0) % MCV (81.0-99.0) fL MCH (27.0-31.0) pg MCHC (33.0-37.0) g/dL RDW (11.5-14.5) % Plt Count (130-400) K/uL MPV (7.2-11.7) fL Neut % (Auto) (50.0-75.0) % Lymph % (Auto) (20.0-40.0) % [place] % (Auto) (0.0-10.0) % Eos % (Auto) (0.0-4.0) % Baso % (Auto) (0.0-2.0) % Neut # (Auto) (1.8-7.0) K/uL Lymph # (Auto) (1.0-4.3) K/uL [place] # (Auto) (0.0-0.8) K/uL Eos # (Auto) (0.0-0.7) K/uL Baso # (Auto) (0.0-0.2) K/uL APTT 52 H (21-34) SECONDS Puncture Site pCO2 (35-45) mm/Hg pO2 (80-100) mm/Hg HCO3 (21-28) mmol/L ABG pH (7.35-7.45) ABG Total CO2 (22-28) mmol/L ABG O2 Saturation (95-98) % ABG Base Excess (-2.0-3.0) mmol/L ABG Hemoglobin (11.7-17.4) g/dL ABG Carboxyhemoglobin (0.5-1.5) % POC ABG HHb (Measured) (0.0-5.0) % ABG Methemoglobin (0.0-3.0) % [place] Test A-a O2 Difference mm/Hg Respiratory Index Hgb O2 Saturation (95.0-98.0) % Vent Mode Mechanical Rate FiO2 % Tidal Volume PEEP Sodium (132-148) mmol/L Potassium (3.6-5.2) mmol/L Chloride (98-107) mmol/L Carbon Dioxide (22-30) mmol/L Anion Gap (10-20) BUN (7-17) mg/dL Creatinine (0.7-1.2) mg/dL Est GFR ( Amer) Est GFR (Non-Af Amer) POC Glucose (mg/dL) 76 60 L (65-110) mg/dL Random Glucose (65-105) mg/dL Calcium (8.6-10.4) mg/dl Phosphorus (2.5-4.5) mg/dL Magnesium (1.6-2.3) mg/dL Total Bilirubin (0.2-1.3) mg/dL AST (14-36) U/L ALT (9-52) U/L Alkaline Phosphatase (38-126) U/L Total Protein (6.3-8.3) g/dL Albumin (3.5-5.0) g/dL Globulin (2.2-3.9) gm/dL Albumin/Globulin Ratio (1.0-2.1) Procalcitonin (0.19-0.49) NG/ML 07/24/18 07/24/18 07/24/18 Range/Units 23:35 20:12 17:43 WBC (4.8-10.8) K/uL RBC (3.80-5.20) Mil/uL Hgb (11.0-16.0) g/dL Hct (34.0-47.0) % MCV (81.0-99.0) fL MCH (27.0-31.0) pg MCHC (33.0-37.0) g/dL RDW (11.5-14.5) % Plt Count (130-400) K/uL MPV (7.2-11.7) fL Neut % (Auto) (50.0-75.0) % Lymph % (Auto) (20.0-40.0) % [place] % (Auto) (0.0-10.0) % Eos % (Auto) (0.0-4.0) % Baso % (Auto) (0.0-2.0) % Neut # (Auto) (1.8-7.0) K/uL Lymph # (Auto) (1.0-4.3) K/uL [place] # (Auto) (0.0-0.8) K/uL Eos # (Auto) (0.0-0.7) K/uL Baso # (Auto) (0.0-0.2) K/uL APTT 52 H D (21-34) SECONDS Puncture Site pCO2 (35-45) mm/Hg pO2 (80-100) mm/Hg HCO3 (21-28) mmol/L ABG pH (7.35-7.45) ABG Total CO2 (22-28) mmol/L ABG O2 Saturation (95-98) % ABG Base Excess (-2.0-3.0) mmol/L ABG Hemoglobin (11.7-17.4) g/dL ABG Carboxyhemoglobin (0.5-1.5) % POC ABG HHb (Measured) (0.0-5.0) % ABG Methemoglobin (0.0-3.0) % [place] Test A-a O2 Difference mm/Hg Respiratory Index Hgb O2 Saturation (95.0-98.0) % Vent Mode Mechanical Rate FiO2 % Tidal Volume PEEP Sodium (132-148) mmol/L Potassium (3.6-5.2) mmol/L Chloride (98-107) mmol/L Carbon Dioxide (22-30) mmol/L Anion Gap (10-20) BUN (7-17) mg/dL Creatinine (0.7-1.2) mg/dL Est GFR ( Amer) Est GFR (Non-Af Amer) POC Glucose (mg/dL) 107 (65-110) mg/dL Random Glucose (65-105) mg/dL Calcium (8.6-10.4) mg/dl Phosphorus (2.5-4.5) mg/dL Magnesium (1.6-2.3) mg/dL Total Bilirubin (0.2-1.3) mg/dL AST (14-36) U/L ALT (9-52) U/L Alkaline Phosphatase (38-126) U/L Total Protein (6.3-8.3) g/dL Albumin (3.5-5.0) g/dL Globulin (2.2-3.9) gm/dL Albumin/Globulin Ratio (1.0-2.1) Procalcitonin 0.75 H (0.19-0.49) NG/ML Laboratory Results - last 24 hr 07/24/18 07/24/18 07/24/18 17:43 20:12 23:35 WBC RBC Hgb Hct MCV MCH MCHC RDW Plt Count MPV Neut % (Auto) Lymph % (Auto) [place] % (Auto) Eos % (Auto) Baso % (Auto) Neut # (Auto) Lymph # (Auto) [place] # (Auto) Eos # (Auto) Baso # (Auto) APTT 52 H D Puncture Site pCO2 pO2 HCO3 ABG pH ABG Total CO2 ABG O2 Saturation ABG Base Excess ABG Hemoglobin ABG Carboxyhemoglobin POC ABG HHb (Measured) ABG Methemoglobin [place] Test A-a O2 Difference Respiratory Index Hgb O2 Saturation Vent Mode Mechanical Rate FiO2 Tidal Volume PEEP Sodium Potassium Chloride Carbon Dioxide Anion Gap BUN Creatinine Est GFR ( Amer) Est GFR (Non-Af Amer) POC Glucose (mg/dL) 107 Random Glucose Calcium Phosphorus Magnesium Total Bilirubin AST ALT Alkaline Phosphatase Total Protein Albumin Globulin Albumin/Globulin Ratio Procalcitonin 0.75 H 07/25/18 07/25/18 07/25/18 02:27 05:34 05:38 WBC RBC Hgb Hct MCV MCH MCHC RDW Plt Count MPV Neut % (Auto) Lymph % (Auto) [place] % (Auto) Eos % (Auto) Baso % (Auto) Neut # (Auto) Lymph # (Auto) [place] # (Auto) Eos # (Auto) Baso # (Auto) APTT 52 H Puncture Site pCO2 pO2 HCO3 ABG pH ABG Total CO2 ABG O2 Saturation ABG Base Excess ABG Hemoglobin ABG Carboxyhemoglobin POC ABG HHb (Measured) ABG Methemoglobin [place] Test A-a O2 Difference Respiratory Index Hgb O2 Saturation Vent Mode Mechanical Rate FiO2 Tidal Volume PEEP Sodium Potassium Chloride Carbon Dioxide Anion Gap BUN Creatinine Est GFR ( Amer) Est GFR (Non-Af Amer) POC Glucose (mg/dL) 60 L 76 Random Glucose Calcium Phosphorus Magnesium Total Bilirubin AST ALT Alkaline Phosphatase Total Protein Albumin Globulin Albumin/Globulin Ratio Procalcitonin 07/25/18 07/25/18 07/25/18 05:39 06:46 06:46 WBC 6.4 RBC 3.03 L Hgb 8.9 L Hct 26.9 L MCV 88.9 MCH 29.5 MCHC 33.2 RDW 15.3 H Plt Count 215 MPV 9.0 Neut % (Auto) 66.8 Lymph % (Auto) 20.5 [place] % (Auto) 9.4 Eos % (Auto) 2.5 Baso % (Auto) 0.8 Neut # (Auto) 4.3 Lymph # (Auto) 1.3 [place] # (Auto) 0.6 Eos # (Auto) 0.2 Baso # (Auto) 0.0 APTT Puncture Site L brac pCO2 40 pO2 52 L HCO3 25.8 ABG pH 7.42 ABG Total CO2 27.1 ABG O2 Saturation 91.9 L ABG Base Excess 1.3 ABG Hemoglobin 11.5 L ABG Carboxyhemoglobin 2.4 H POC ABG HHb (Measured) 7.8 H ABG Methemoglobin 0.8 [place] Test Na A-a O2 Difference 112.0 Respiratory Index 2.2 Hgb O2 Saturation 89.0 L Vent Mode Prvc Mechanical Rate 10 FiO2 30.0 Tidal Volume 440 PEEP 5 Sodium 145 Potassium 4.2 Chloride 109 H Carbon Dioxide 28 Anion Gap 13 BUN 24 H Creatinine 1.1 Est GFR ( Amer) > 60 Est GFR (Non-Af Amer) 52 POC Glucose (mg/dL) Random Glucose 68 Calcium 7.9 L Phosphorus 3.0 Magnesium 2.6 H Total Bilirubin 0.6 AST 34 ALT 41 Alkaline Phosphatase 262 H Total Protein 5.7 L Albumin 2.5 L Globulin 3.2 Albumin/Globulin Ratio 0.8 L Procalcitonin Critical Care Progress Note - Nutrition Nutrition: Nutrition Category Date Time Status NPO Diet [DIET] Diets 07/25/18 Breakfast Active Attending/Attestation - Attestation I have personally seen and examined this patient.: Yes I have fully participated in the care of the patient.: Yes I have reviewed all pertinent clinical information: Yes Notes (Text): 07/25/18 18:24 patient seen and examined in the intensive care unit. Continue ventilatory support, status post tracheostomy Continue antibiotics Possible PEG placement tomorrow On anticoagulation
[2018-07-25] MEDS: Lactobacillus Acidophilus 500 MU Cap PO SCH ×3 (08:36→20:11)
[2018-07-25] MEDS: Pantoprazole 40 mg Susp UD PO SCH (09:17)
[2018-07-25] MEDS: Multiple Vitamins Oral Solution PO SCH (09:18)
[2018-07-25] MEDS: Propranolol 5 mg Tab PO SCH ×3 (09:18→17:57)
--- NOTE | 2018-07-25 09:22 | CP.PCM.PN ---
Subjective - Date & Time of Evaluation Date of Evaluation: 07/25/18 Time of Evaluation: 06:50 - Subjective Subjective: 52F was seen and examined at bedside this morning. Patient had tracheostomy yesterday. We can continue heparin drip. Patient is not in any acute distress. Unable to obtain ROS due to clinical status. Objective - Vital Signs/Intake and Output Vital Signs (last 24 hours): Temp Pulse Resp BP Pulse Ox 98 F 100 H 13 106/54 L 95 07/25/18 04:00 07/25/18 07:00 07/25/18 07:00 07/25/18 09:17 07/25/18 07:00 Intake and Output: 07/25/18 07/25/18 06:59 18:59 Intake Total 779.8 41.8 Output Total 750 Balance 29.8 41.8 - Medications Medications: Current Medications Acetaminophen (Tylenol 325mg Tab) 650 mg PO Q6 PRN PRN Reason: Fever >100.4 F Last Admin: 07/19/18 21:04 Dose: 650 mg Albuterol/Ipratropium (Duoneb 3 Mg/0.5 Mg (3 Ml) Ud) 3 ml INH RQ6 MANOLO Last Admin: 07/25/18 08:15 Dose: 3 ml Ascorbic Acid (Vitamin C 500 Mg Tab) 1,000 mg NG DAILY MANOLO Last Admin: 07/25/18 09:17 Dose: 1,000 mg Aspirin (Aspirin Chewable) 81 mg GT DAILY MANOLO Last Admin: 07/25/18 09:17 Dose: 81 mg Ergocalciferol (Drisdol 50,000 Intl Units Cap) 1 cap PO Q7D MANOLO Last Admin: 07/18/18 12:07 Dose: 1 cap Furosemide (Lasix) 20 mg IVP BID MANOLO Last Admin: 07/25/18 09:17 Dose: 20 mg Dexmedetomidine HCl 200 mcg/ (Sodium Chloride) 50 mls @ 2.91 mls/hr IV TITR PRN; Protocol PRN Reason: Sedation Last Titration: 07/24/18 11:30 Dose: 0 mcg/kg/hr, 0 mls/hr Meropenem 1 gm/ Sodium (Chloride) 100 mls @ 100 mls/hr IVPB Q8H MANOLO; Protocol Last Admin: 07/25/18 03:02 Dose: 100 mls/hr Heparin Sodium/Sodium Chloride (Heparin 03031 Units/250ml 1/2 Normal Saline) 25,000 units in 250 mls @ 6.804 mls/hr IV .Q24H PRN; Protocol PRN Reason: PROTOCOL Last Admin: 07/25/18 05:16 Dose: 6.804 mls/hr Dextrose (Dextrose 10% In Water) 1,000 mls @ 30 mls/hr IV .Q24H MANOLO Last Admin: 07/25/18 08:37 Dose: 30 mls/hr Insulin Aspart (Novolog) 0 unit SC Q6 MANOLO; Protocol Last Admin: 07/25/18 05:46 Dose: Not Given Insulin Glargine (Lantus) 20 unit SC Q12 [facility] Last Admin: 07/24/18 22:13 Dose: 20 u Lactobacillus Acidophilus (Bacid Acidophilus) 1 cap PO Q12H [facility] Last Admin: 07/25/18 09:11 Dose: 1 cap Methimazole (Tapazole) 10 mg PO TID [facility] Last Admin: 07/24/18 17:31 Dose: 10 mg Morphine Sulfate (Morphine) 2 mg IV Q8 PRN PRN Reason: Pain, moderate (4-7) Last Admin: 07/25/18 03:05 Dose: 2 mg Multivitamins/Vitamin C (Multi-Delyn Liquid) 5 ml PO DAILY [facility] Last Admin: 07/25/18 09:18 Dose: 5 ml Pantoprazole Sodium (Protonix Susp) 40 mg PO DAILY [facility] Last Admin: 07/25/18 09:17 Dose: 40 mg Propranolol HCl (Inderal) 5 mg PO TID [facility] Last Admin: 07/25/18 09:18 Dose: 5 mg Rosuvastatin Calcium (Crestor) 2.5 mg PO HS [facility] Last Admin: 07/24/18 22:13 Dose: 2.5 mg - Labs Labs: 07/25/18 06:46 07/25/18 06:46 PT 14.3 SECONDS (9.7-12.2) H 07/23/18 10:26 INR 1.3 07/23/18 10:26 APTT 52 SECONDS (21-34) H 07/25/18 02:27 - Constitutional Appears: Non-toxic - Head Exam Head Exam: ATRAUMATIC, NORMAL INSPECTION, NORMOCEPHALIC - Eye Exam Eye Exam: EOMI - ENT Exam ENT Exam: Mucous Membranes Moist - Respiratory Exam Respiratory Exam: Respiratory Distress. absent: Accessory Muscle Use Additional comments: tracheostomy. no bleeding - Cardiovascular Exam Cardiovascular Exam: REGULAR RHYTHM - GI/Abdominal Exam GI & Abdominal Exam: Soft. absent: Tenderness - Extremities Exam Extremities Exam: Full ROM - Back Exam Back Exam: NORMAL INSPECTION - Neurological Exam Neurological Exam: Awake - Psychiatric Exam Psychiatric exam: Normal Affect - Skin Skin Exam: Dry Assessment and Plan - Assessment and Plan (Free Text) Assessment: 52F with respiratory distress on prolonged mechanical ventilation s/p tracheostomy Plan: s/p tracheostomy Ok to resume anticoagulation Dressing change PRN GI to do PEG management as per ICU D/W Dr. Melchor
[2018-07-25] MEDS: methIMAzole 5 MG TAB PO SCH ×2 (10:17→14:20)
--- NOTE | 2018-07-25 10:49 | RAD ---
Date of service: 07/25/2018 HISTORY: intubated COMPARISON: No prior. FINDINGS: LUNGS: Lines and tubes in stable position. Moderate venous congestion. Diffuse increased interstitial lung markings. Patchy bibasilar airspace opacities. Small bilateral pleural effusions. PLEURA: As above. CARDIOVASCULAR: No aortic atherosclerotic calcification present Mild cardiomegaly. OSSEOUS STRUCTURES: No significant abnormalities. VISUALIZED UPPER ABDOMEN: Normal. OTHER FINDINGS: None. IMPRESSION: Lines and tubes in stable position. Moderate venous congestion. Diffuse increased interstitial lung markings. Patchy bibasilar airspace opacities. Small bilateral pleural effusions.
--- NOTE | 2018-07-25 12:16 | CP.PCM.PN ---
Subjective - Date & Time of Evaluation Date of Evaluation: 07/25/18 Time of Evaluation: 08:00 - Subjective Subjective: Patient had tracheostomy yesterday on iv merrem for pneumonia Objective - Vital Signs/Intake and Output Vital Signs (last 24 hours): Temp Pulse Resp BP Pulse Ox 97.5 F L 79 10 L 107/56 L 100 07/25/18 08:00 07/25/18 10:58 07/25/18 10:58 07/25/18 10:58 07/25/18 10:58 Intake and Output: 07/25/18 07/25/18 06:59 18:59 Intake Total 779.8 339.0 Output Total 750 245 Balance 29.8 94.0 - Medications Medications: Current Medications Acetaminophen (Tylenol 325mg Tab) 650 mg PO Q6 PRN PRN Reason: Fever >100.4 F Last Admin: 07/19/18 21:04 Dose: 650 mg Albuterol/Ipratropium (Duoneb 3 Mg/0.5 Mg (3 Ml) Ud) 3 ml INH RQ6 [facility] Last Admin: 07/25/18 08:15 Dose: 3 ml Ascorbic Acid (Vitamin C 500 Mg Tab) 1,000 mg NG DAILY [facility] Last Admin: 07/25/18 09:17 Dose: 1,000 mg Aspirin (Aspirin Chewable) 81 mg GT DAILY [facility] Last Admin: 07/25/18 09:17 Dose: 81 mg Ergocalciferol (Drisdol 50,000 Intl Units Cap) 1 cap PO Q7D [facility] Last Admin: 07/18/18 12:07 Dose: 1 cap Furosemide (Lasix) 20 mg IVP BID [facility] Last Admin: 07/25/18 09:17 Dose: 20 mg Dexmedetomidine HCl 200 mcg/ (Sodium Chloride) 50 mls @ 2.91 mls/hr IV TITR PRN; Protocol PRN Reason: Sedation Last Titration: 07/24/18 11:30 Dose: 0 mcg/kg/hr, 0 mls/hr Meropenem 1 gm/ Sodium (Chloride) 100 mls @ 100 mls/hr IVPB Q8H [facility]; Protocol Last Admin: 07/25/18 10:54 Dose: 100 mls/hr Heparin Sodium/Sodium Chloride (Heparin 52646 Units/250ml 1/2 Normal Saline) 25,000 units in 250 mls @ 6.804 mls/hr IV .Q24H PRN; Protocol PRN Reason: PROTOCOL Last Admin: 07/25/18 05:16 Dose: 6.804 mls/hr Dextrose (Dextrose 10% In Water) 1,000 mls @ 30 mls/hr IV .Q24H [facility] Last Admin: 07/25/18 08:37 Dose: 30 mls/hr Insulin Aspart (Novolog) 0 unit SC Q6 [facility]; Protocol Last Admin: 07/25/18 05:46 Dose: Not Given Insulin Glargine (Lantus) 20 unit SC Q12 [facility] Last Admin: 07/24/18 22:13 Dose: 20 u Lactobacillus Acidophilus (Bacid Acidophilus) 1 cap PO Q12H [facility] Last Admin: 07/25/18 09:11 Dose: 1 cap Methimazole (Tapazole) 10 mg PO TID [facility] Last Admin: 07/25/18 10:17 Dose: 10 mg Morphine Sulfate (Morphine) 2 mg IV Q8 PRN PRN Reason: Pain, moderate (4-7) Last Admin: 07/25/18 03:05 Dose: 2 mg Multivitamins/Vitamin C (Multi-Delyn Liquid) 5 ml PO DAILY [facility] Last Admin: 07/25/18 09:18 Dose: 5 ml Pantoprazole Sodium (Protonix Susp) 40 mg PO DAILY [facility] Last Admin: 07/25/18 09:17 Dose: 40 mg Propranolol HCl (Inderal) 5 mg PO TID [facility] Last Admin: 07/25/18 09:18 Dose: 5 mg Rosuvastatin Calcium (Crestor) 2.5 mg PO HS [facility] Last Admin: 07/24/18 22:13 Dose: 2.5 mg - Labs Labs: 07/25/18 06:46 07/25/18 06:46 PT 14.3 SECONDS (9.7-12.2) H 07/23/18 10:26 INR 1.3 07/23/18 10:26 APTT 52 SECONDS (21-34) H 07/25/18 02:27 - Constitutional Appears: Cachectic, Chronically Ill - Head Exam Head Exam: NORMOCEPHALIC - Eye Exam Eye Exam: PERRL - ENT Exam ENT Exam: Mucous Membranes Dry - Neck Exam Neck Exam: absent: Lymphadenopathy - Respiratory Exam Respiratory Exam: Decreased Breath Sounds - Cardiovascular Exam Cardiovascular Exam: REGULAR RHYTHM - GI/Abdominal Exam GI & Abdominal Exam: Distended - Rectal Exam Rectal Exam: Deferred - Exam Exam: NORMAL INSPECTION Assessment and Plan (1) NEHA (acute kidney injury) Status: Acute (2) Acute renal failure Status: Acute (3) Acute respiratory failure Status: Acute (4) Aspiration pneumonia Status: Acute (5) Septic shock Status: Acute (6) Urinary tract infection Status: Acute (7) Diabetes mellitus Status: Chronic
[2018-07-25] MEDS: Ergocalciferol 50,000 Intl Units Cap PO SCH (14:15)
--- NOTE | 2018-07-25 15:32 | CP.PCM.PN ---
Subjective - Date & Time of Evaluation Date of Evaluation: 07/25/18 Time of Evaluation: 15:00 - Subjective Subjective: Medical Attending Note: Patient seen and examined this morning. at bedside. reports appears frustrated and wants to try to talk moving upper and lower extremities. Unable to ROS secondary clinical condition. Objective - Vital Signs/Intake and Output Vital Signs (last 24 hours): Temp Pulse Resp BP Pulse Ox 97.5 F L 79 10 L 107/56 L 100 07/25/18 08:00 07/25/18 10:58 07/25/18 10:58 07/25/18 10:58 07/25/18 10:58 Intake and Output: 07/25/18 07/25/18 06:59 18:59 Intake Total 779.8 339.0 Output Total 750 245 Balance 29.8 94.0 - Medications Medications: Current Medications Acetaminophen (Tylenol 325mg Tab) 650 mg PO Q6 PRN PRN Reason: Fever >100.4 F Last Admin: 07/19/18 21:04 Dose: 650 mg Albuterol/Ipratropium (Duoneb 3 Mg/0.5 Mg (3 Ml) Ud) 3 ml INH RQ6 [facility] Last Admin: 07/25/18 13:59 Dose: 3 ml Ascorbic Acid (Vitamin C 500 Mg Tab) 1,000 mg NG DAILY [facility] Last Admin: 07/25/18 09:17 Dose: 1,000 mg Aspirin (Aspirin Chewable) 81 mg GT DAILY [facility] Last Admin: 07/25/18 09:17 Dose: 81 mg Ergocalciferol (Drisdol 50,000 Intl Units Cap) 1 cap PO Q7D [facility] Last Admin: 07/25/18 14:15 Dose: 1 cap Furosemide (Lasix) 20 mg IVP BID [facility] Last Admin: 07/25/18 09:17 Dose: 20 mg Dexmedetomidine HCl 200 mcg/ (Sodium Chloride) 50 mls @ 2.91 mls/hr IV TITR PRN; Protocol PRN Reason: Sedation Last Titration: 07/24/18 11:30 Dose: 0 mcg/kg/hr, 0 mls/hr Meropenem 1 gm/ Sodium (Chloride) 100 mls @ 100 mls/hr IVPB Q8H [facility]; Protocol Last Admin: 07/25/18 10:54 Dose: 100 mls/hr Heparin Sodium/Sodium Chloride (Heparin 02512 Units/250ml 1/2 Normal Saline) 25,000 units in 250 mls @ 6.804 mls/hr IV .Q24H PRN; Protocol PRN Reason: PROTOCOL Last Admin: 07/25/18 05:16 Dose: 6.804 mls/hr Dextrose (Dextrose 10% In Water) 1,000 mls @ 30 mls/hr IV .Q24H [facility] Last Admin: 07/25/18 08:37 Dose: 30 mls/hr Insulin Aspart (Novolog) 0 unit SC Q6 [facility]; Protocol Last Admin: 07/25/18 12:00 Dose: Not Given Insulin Glargine (Lantus) 20 unit SC Q12 [facility] Last Admin: 07/24/18 22:13 Dose: 20 u Lactobacillus Acidophilus (Bacid Acidophilus) 1 cap PO Q12H [facility] Last Admin: 07/25/18 09:11 Dose: 1 cap Methimazole (Tapazole) 10 mg PO TID [facility] Last Admin: 07/25/18 14:20 Dose: 10 mg Morphine Sulfate (Morphine) 2 mg IV Q8 PRN PRN Reason: Pain, moderate (4-7) Last Admin: 07/25/18 03:05 Dose: 2 mg Multivitamins/Vitamin C (Multi-Delyn Liquid) 5 ml PO DAILY [facility] Last Admin: 07/25/18 09:18 Dose: 5 ml Pantoprazole Sodium (Protonix Susp) 40 mg PO DAILY [facility] Last Admin: 07/25/18 09:17 Dose: 40 mg Propranolol HCl (Inderal) 5 mg PO TID [facility] Last Admin: 07/25/18 14:20 Dose: 5 mg Rosuvastatin Calcium (Crestor) 2.5 mg PO HS [facility] Last Admin: 07/24/18 22:13 Dose: 2.5 mg - Labs Labs: 07/25/18 06:46 07/25/18 06:46 PT 14.3 SECONDS (9.7-12.2) H 07/23/18 10:26 INR 1.3 07/23/18 10:26 APTT 52 SECONDS (21-34) H 07/25/18 02:27 - Constitutional Appears: Chronically Ill - Head Exam Head Exam: NORMAL INSPECTION Additional comments: s/p trach (clean/dry/intact) subclavian (right) Rectal tube Prevalon boots - Eye Exam Eye Exam: EOMI - ENT Exam ENT Exam: Mucous Membranes Moist - Respiratory Exam Respiratory Exam: Decreased Breath Sounds, Rales, Rhonchi, NORMAL BREATHING PATTERN - Cardiovascular Exam Cardiovascular Exam: REGULAR RHYTHM, +S1, +S2 - GI/Abdominal Exam GI & Abdominal Exam: Distended (mild), Soft, Normal Bowel Sounds. absent: Firm, Guarding, Rigid, Tenderness, Rebound - Extremities Exam Extremities Exam: Pedal Edema - Neurological Exam Neurological Exam: Alert, Awake - Skin Skin Exam: Diaphoretic, Dry, Normal Color, Warm Assessment and Plan (1) Septic shock Status: Acute (2) Acute respiratory failure Status: Acute (3) Urinary tract infection Status: Acute (4) Acute renal failure Status: Acute (5) Aspiration pneumonia Status: Acute (6) Diabetes mellitus Status: Chronic (7) Ventricular arrhythmia Status: Acute (8) Hyperthyroidism Status: Acute (9) Anemia Status: Acute (10) Prophylactic measure Status: Acute Attending/Attestation - Attestation I have personally seen and examined this patient.: Yes I have fully participated in the care of the patient.: Yes I have reviewed all pertinent clinical information, including history, physical exam and plan: Yes Notes (Text): Patient is status post trachestomy POD 1. Discussed with ICU resident, will allow for peg placement now. GI will discuss with and possible peg placement for tomorrow. Heparin drip to be held 4-6 hours prior to peg placement per GI. I have discussed with ICU resident who is aware that the heparin will need be off prior to peg placement. patient has noted apical thrombus and LLE DVT; on heparin drip (previously on Eliquis prior to procedures) Patient is on Meropenem; pending repeat procalcitonin shows improving 0.75 from 3.86 on 07/20/18. patient has been w/o fever since 07/19/18 and white count has normalized. Discussed with ID, no vancomycin needed. Per cardio, once procedures are done, recommend for anticoagulation for 3 months. Assessment/plan 1) Septic Shock Assessment/Plan * Infectious Disease (Dr. Brock) on case-->help appreciated * Tmax: 101.7 F (07/19/18) * Afebrile since * Criteria: leukocytosis, tachycardia * Source: aspiration pneumonia and urinary tract infection * 07/07/18: Urine: E. Coli * 07/09/18: Urine: No growth * 07/07/18: Blood culture: no growth after 5 days X2 * 07/09/18 Blood culture: no growth after 5 days X2 * 07/14/18: blood cultures: no growth to date * 07/14/18: sputum culture: yeast species * 07/14/18: Urine culture: no growth * 07/20/18: Blood culture: no growth after 5 days X2 * 07/20/18: Urine culture: no growth * 07/21/18: No Salmonella, shigella, or campobacter * 07/23/18 Urine culture: no growth * MRSA not detected * Antibiotics * Rocephin 2gm IVPB Q12H (07/14/18 through 07/20/18) * Meropenem 1 gm IV Q8H (active since 07/20/18) * Vancomycin 1 gram IVPB Q24H (being held since 07/20/18)-->vancomycin level 7.7-->per id to d/c vancomycin 2) Acute Respiratory Failure Pulmonary Edema Bilateral Pleural Effusion and Consolidations Likely Secondary to Aspiration Pneumonia Assessment/Plan * Required reintubated after 2nd fail attempt; patient underwent trachestomy 07/24/18 * off Solumedrol * Duonebs RQ6H PRN wheezing * MRSA screen: not detected * Sputum culture 07/09/18, 07/12/18, 07/14/18: yeast * Mycoplasma negative * Legionella was negative * Influenza negative * HIV negative * CT Chest 07/15/18: Moderate to large bilateral pleural effusion and associated consolidations, pathcy grround-glass infiltrates/edema noted within bilateral upper lobes * Chest xray (07/24/18): worsening infiltrates, satisfactory position of recently placed tracheostomy device. Satisfactory position of remaining support apparatus including venous access catheter and recently placed nasogastric tube * Rocephin 2gm IVPB Q12H (07/14/18 through 07/20/18) * Meropenem 1 gm IV Q8H (active since 07/20/18) * Vancomycin 1 gram IVPB Q24H (being held since 07/20/18) discontinued by ID * Bedside Thoracic U/S 07/17/18 did not reveal enough pleural effusion for Thoracentesis * Lasix 20 mg IV Q12H * Levophed Drip currently on hold * Procalcitonin uptrending as of 07/20/18; Repeat 0.75. 3) Ventricular Tachycardia NSTEMI Apical Thrombus LLE DVT Assessment/Plan * Code Blue 07/10: SVT==>VT required amiodarone, magnesium, one shock delivered * Code Blue 07/20: vtach s/p amiodarone, fluid, calcium gluconate, required compressions and shock * Cardiology Dr Francisco on case help appreciated * Echocardiogram (07/07/18): left ventricle systolic function is borderline, ejection fraction is 45-50%, no aortic regurgitation is present, mitral reg urgitation is mild. Mild tricuspid regurgitation. mild pulmonary hypertension, mild pulmonic valvular regurgitation * Contrast Echo: Large apical hypokinesis a large 30 x 20 mm soft tissue apical sessile mass suggestive of thrombus overall fraction 40%. Obtain a HUBERT or/consider stress card myopathy if coronary disease is excluded further findings per report * Amiodarone discontinued * Monitor electrolytes * Heparin drip changed to Eliquis 2.5 mg 2x/day 07/18/18 and then patient placed back on Heparin Drip 07/21/18 for pending Tracheostomy on 07/24/18 * Recommended Heparin drip until possible Peg placement with GI * Aspirin 81 mg PO 1x/day. Considering patient already on Eliquis and to reduce chance of bleeding, Plavix was discontinued 07/18/18. * Eliquis is on hold for trach and/or peg placement * Propranolol 5mg PO TID 4) Urinary Tract Infection Assessment/Plan * Infectious disease on board help appreciated * 07/07/18: Urine: E. Coli * 07/09/18: Urine: No growth * 07/14/18: Urine culture: No growth * Urine Culture 07/20/18: No growth 5) Diabetes-->chronic Assessment/Plan * HgBA1c: 7.8 * Hypoglycemic protocol * Lantus 20 units subcutaneous at bedtime Q12 6) Acute on Chronic Renal Failure Assessment/Plan * Nephrology (Dr. Hyde) on board--> help appreciated * Patient will likely not need dialysis * Renal function continues to improve 7) Hyperthyroidism? Low TSH, and Free T4 Thyroid Storm Assessment/Plan * Note Thyroid studies taken before amiodarone was given (please advised this is not amiodarone induced her levels were abnormal prior) * Patient does not have prior thyroid history * Endocrinology (Dr. 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 She will need outpatient FNA Bx of the complex Left Lobe cyst (pl ease see full report) * Methimazole 10mg PO TID * Propranolol 5 mg PO TID * Monitor LFTs 8) Anemia Likely Secondary to Chronic Diseases Assessment/Plan * Iron normal, TIBC low, Iron Saturation normal, Ferritin normal * Stool occult blood negative * B12 normal * Folate Normal * Being transfused 1 unit PRBC 07/22/18 * Patient is on Eliquis (which is being held and switched to Heparin Drip for Tracheostomy 07/24/18; and possible peg placement) for the Cardiac Apical Thrombus and on Aspirin for the NSTEMI (Plavix was discontinued 07/18/18) 9) Transminitis-->improving * Likely secondary to Sepsis and Amiodarone (which was discontinued) * Hepatitis serology negative * Slightly elevated from normal on 07/20/18 but could be secondary to BAG MAKER/Code Blue 07/20/18 10) Vitamin D deficiency Assessment plan * 50,000 international units once a week for at least 8-12 weeks started on 07/11/18 11) Thrombocytopenia-->resolved Assessment plan * Sepsis, vs Methimazole? * Patient was on Heparin Drip through 07/18/18 and then started on Eliquis on this date * Heparin drip for procedures * patient was on Eliquis prior but given trachestomy and now peg placement * Fibrinogen elevated * HIT and RUSTY both negative for HIT * Currently normalized 12) 13 mm Left Adrenal Nodule * As seen on CT Chest 07/16/18 * Will need outpatient follow up for cross sectional imaging for better characterization 13) Hypernatremia-->resolved * Free water 250 ml 3x/day via OGT * Na now normal 14) LLE DVT * Heparin drip changed to Eliquis 2.5 mg 2x/day 07/18/18 and then patient placed back on Heparin Drip 07/21/18 for pending Tracheostomy on 07/24/18 * Recommended Heparin drip until possible Peg placement with GI * Acute thrombosis of the left common femoral and femoral veins with severe reduction of the venous return on 07/18/18 venous doppler 15) Prophylactic measure * Protonix 40mg PO BID * Eliquis 2.5 mg PO BID which has been changed back to Heparin Drip for Tracheostomy 07/24/18; now allows for peg placement with GI; c/w hep xavier drip until procedures are completed * Bilateral SCDs * Glucerna Feedings via OGT * Subclavian line 07/14/18 * Off precedex * On morphine PRN s/p trachestomy POD 1 Disposition; Patient underwent open trachoestomy yesterday now allows for peg placement for feeding. GI consulted. GI to possible setup peg placement tomorrow in afternoon; has asked for heparin drip to be held 4-6 hours prior to procedure. I have spoken with ICU Resident who is aware and will coordinate when to stop heparin drip tomorrow (tentatively 6AM). Patient is on IV abx for pneumonia and urinary tract infection. Repeat procalcitonin shows improvement. Lantus held for peg placement.
--- NOTE | 2018-07-25 21:34 | OP ---
PROCEDURE DATE: 07/24/2018 PREOPERATIVE DIAGNOSIS: Respiratory failure. POSTOPERATIVE DIAGNOSIS: Respiratory failure. PROCEDURE: Tracheostomy. SURGEON: Kanika Melchor MD. LOFT WORKER HEAD: Dr. Iraheta. ANESTHESIA: General. ANESTHESIA ADMINISTERED BY: Jayden Pugh MD DESCRIPTION OF OPERATION: The patient was placed on the bed in the supine position. A shoulder roll was used to hyperextend the neck. He received general anesthesia via the endotracheal tube. The anterior neck and the upper chest were prepped and draped in the usual sterile manner. Lidocaine 1% with epinephrine was instilled from the area of the thyroid cartilage down to the sternal notch and a longitudinal incision was made in the midline of the neck overlying the trachea. The strap muscles were divided in the midline. The isthmus of the thyroid was prominent and portions of the isthmus were clamped, divided, and suture ligated with 3-0 silk sutures to expose the thyroid. The trachea was cleared and the second tracheal ring was palpated. In coordination with anesthesia, the endotracheal tube was pulled back and incision was made at the level of the second tracheal ring. A veterinary virologist was used to enlarge the incision in the trachea and after retracting the endotracheal tube above the level of the incision, a #6 Shiley tracheostomy tube was positioned in the trachea. The obturator was removed. The inner cannula was placed and the ventilation was switched to the tracheostomy tube with confirmation of adequate tidal volume and end tidal CO2. There was no significant pulmonary excretion noted. The wound was examined for hemostasis. The lower portion of the incision was closed with a single subcuticular suture of 4-0 Monocryl and Steri-Strips and the tracheostomy was then sutured to the skin with two 0 silk sutures. The tracheostomy collar was placed as well. The patient tolerated the procedure well and transferred back to the intensive care unit in stable condition. Estimated blood loss for the procedure was 10 mL. Kanika Melchor MD
[2018-07-25] MEDS: Rosuvastatin Calcium 2.5 mg Tab PO SCH (21:47)
--- NOTE | 2018-07-25 21:51 | CP.PCM.PN ---
Subjective - Date & Time of Evaluation Date of Evaluation: 07/25/18 Time of Evaluation: 18:20 - Subjective Subjective: Patient seen and evaluated No new cardiac events Physical Examination - Constitutional Appears: Chronically Ill - Head Exam Head Exam: NORMAL INSPECTION Additional comments: s/p trach (clean/dry/intact) subclavian (right) Rectal tube Prevalon boots - Eye Exam Eye Exam: EOMI - ENT Exam ENT Exam: Mucous Membranes Moist - Respiratory Exam Respiratory Exam: Decreased Breath Sounds, Rales, Rhonchi, NORMAL BREATHING PATTERN - Cardiovascular Exam Cardiovascular Exam: REGULAR RHYTHM, +S1, +S2 - GI/Abdominal Exam GI & Abdominal Exam: Distended (mild), Soft, Normal Bowel Sounds. absent: Firm, Guarding, Rigid, Tenderness, Rebound - Extremities Exam Extremities Exam: Pedal Edema - Neurological Exam Neurological Exam: Alert, Awake - Skin Skin Exam: Diaphoretic, Dry, Normal Color, Warm Assessment and Plan (1) LV Thrombus, CAD Status: Acute Change IV Heparin to Eliquis if no additional procedures plnned Anti coagulation for 3 months (2) Acute respiratory failure Status: Acute (3) Urinary tract infection Status: Acute (4) Acute renal failure Status: Acute (5) Aspiration pneumonia Status: Acute (6) Diabetes mellitus Status: Chronic (7) Ventricular arrhythmia Status: Acute (8) Hyperthyroidism Status: Acute (9) Anemia Status: Acute (10) Prophylactic measure Status: Acute Objective - Vital Signs/Intake and Output Vital Signs (last 24 hours): Temp Pulse Resp BP Pulse Ox 99.1 F 80 17 120/67 100 07/25/18 20:00 07/25/18 21:00 07/25/18 21:00 07/25/18 20:58 07/25/18 21:00 Intake and Output: 07/25/18 07/26/18 18:59 06:59 Intake Total 931.6 233.6 Output Total 1195 415 Balance -263.4 -181.4 - Medications Medications: Current Medications Acetaminophen (Tylenol 325mg Tab) 650 mg PO Q6 PRN PRN Reason: Fever >100.4 F Last Admin: 07/19/18 21:04 Dose: 650 mg Albuterol/Ipratropium (Duoneb 3 Mg/0.5 Mg (3 Ml) Ud) 3 ml INH RQ6 [facility] Last Admin: 10/23/18 19:34 Dose: 3 ml Ascorbic Acid (Vitamin C 500 Mg Tab) 1,000 mg NG DAILY [facility] Last Admin: 07/25/18 09:17 Dose: 1,000 mg Aspirin (Aspirin Chewable) 81 mg GT DAILY [facility] Last Admin: 07/25/18 09:17 Dose: 81 mg Ergocalciferol (Drisdol 50,000 Intl Units Cap) 1 cap PO Q7D [facility] Last Admin: 07/25/18 14:15 Dose: 1 cap Furosemide (Lasix) 20 mg IVP BID [facility] Last Admin: 07/25/18 18:35 Dose: 20 mg Meropenem 1 gm/ Sodium (Chloride) 100 mls @ 100 mls/hr IVPB Q8H [facility]; Protocol Last Admin: 07/25/18 20:10 Dose: 100 mls/hr Heparin Sodium/Sodium Chloride (Heparin 44066 Units/250ml 1/2 Normal Saline) 25,000 units in 250 mls @ 6.804 mls/hr IV .Q24H PRN; Protocol PRN Reason: PROTOCOL Last Admin: 07/25/18 05:16 Dose: 6.804 mls/hr Dextrose (Dextrose 10% In Water) 1,000 mls @ 30 mls/hr IV .Q24H [facility] Last Admin: 07/25/18 08:37 Dose: 30 mls/hr Insulin Aspart (Novolog) 0 unit SC Q6 [facility]; Protocol Last Admin: 07/25/18 18:34 Dose: Not Given Insulin Glargine (Lantus) 20 unit SC Q12 [facility] Last Admin: 07/24/18 22:13 Dose: 20 u Lactobacillus Acidophilus (Bacid Acidophilus) 1 cap PO Q12H [facility] Last Admin: 07/25/18 20:11 Dose: 1 cap Methimazole (Tapazole) 10 mg PO TID [facility] Last Admin: 07/25/18 18:34 Dose: 10 mg Morphine Sulfate (Morphine) 2 mg IV Q8 PRN PRN Reason: Pain, moderate (4-7) Last Admin: 07/25/18 20:26 Dose: 2 mg Multivitamins/Vitamin C (Multi-Delyn Liquid) 5 ml PO DAILY [facility] Last Admin: 07/25/18 09:18 Dose: 5 ml Pantoprazole Sodium (Protonix Susp) 40 mg PO DAILY [facility] Last Admin: 07/25/18 09:17 Dose: 40 mg Propranolol HCl (Inderal) 5 mg PO TID [facility] Last Admin: 07/25/18 17:57 Dose: 5 mg Rosuvastatin Calcium (Crestor) 2.5 mg PO HS [facility] Last Admin: 07/25/18 21:47 Dose: 2.5 mg - Labs Labs: 07/25/18 06:46 07/25/18 06:46 PT 14.3 SECONDS (9.7-12.2) H 07/23/18 10:26 INR 1.3 07/23/18 10:26 APTT 52 SECONDS (21-34) H 07/25/18 02:27
[2018-07-26] MEDS: (Novolog) Insulin Aspart, Recombinant 100 u/ml 10 ml vial SC SCH ×4 (00:48→18:21)
[2018-07-26] MEDS ORDERED: DiphenhydrAMINE 50 mg/ml Inj IVP STA (01:20)
[2018-07-26] MEDS: Albuterol-Ipratrop 3 mg / 0.5 (3 ml) UD INH SCH ×4 (02:13→19:49)
[2018-07-26] MEDS: Meropenem 1 GM in Sodium Chloride 0.9% 100 ML IVPB SCH ×3 (02:47→20:02)
[2018-07-26 06:29] LABS: ARTERIAL BLOOD GAS HEMOGLOBIN 9.8 g/dL (11.7-17.4); ARTERIAL BLOOD GAS O2 SAT 98.2 % (95-98); ARTERIAL BLOOD GAS PCO2 35 mm/Hg (35-45); ARTERIAL BLOOD GAS PO2 79 mm/Hg (80-100); ARTERIAL BLOOD GAS TCO2 28.4 mmol/L (22-28)
[2018-07-26 06:41] LABS: BASO % 0.6 % (0.0-2.0); EOS # 0.3 K/uL (0.0-0.7); EOS % 3.2 % (0.0-4.0); HEMOGLOBIN 9.4 g/dL (11.0-16.0); LYMPH # 1.9 K/uL (1.0-4.3); LYMPH % 23.7 % (20.0-40.0); MEAN CORPUSCULAR HEMOGLOBIN 29.6 pg (27.0-31.0); MEAN CORPUSCULAR HGB CONC 33.6 g/dL (33.0-37.0); MONO # 0.8 K/uL (0.0-0.8); MONO % 9.7 % (0.0-10.0); NEUT # 4.9 K/uL (1.8-7.0); NEUT % 62.8 % (50.0-75.0); RBC 3.19 Mil/uL (3.80-5.20); RED CELL DISTRIBUTION WIDTH 15.2 % (11.5-14.5); WHITE BLOOD COUNT 7.9 K/uL (4.8-10.8)
[2018-07-26 06:58] LABS: ALB/GLOB RATIO 0.8 (1.0-2.1); ALBUMIN 2.7 g/dL (3.5-5.0); ALT/SGPT 34 U/L (9-52); AST/SGOT 35 U/L (14-36); BLOOD UREA NITROGEN 23 mg/dL (7-17); CALCIUM 8.2 mg/dl (8.6-10.4); GFR NON-AFRICAN AMERICAN 52
--- NOTE | 2018-07-26 08:36 | RAD ---
Date of service: 07/26/2018 HISTORY: intubated COMPARISON: 07/25/2018. FINDINGS: There is stable position of the tracheostomy tube. The nasogastric tube terminates in the stomach. Right central line terminates at the cavoatrial junction LUNGS: The lungs are well inflated. There is little interval change in moderate venous there is persistent airspace lower. PLEURA: No pneumothorax. Suspect small effusions. CARDIOVASCULAR: The heart is normal in size. No aortic atherosclerotic calcification present. OSSEOUS STRUCTURES: Within normal limits for the patient's age. VISUALIZED UPPER ABDOMEN: Normal. OTHER FINDINGS: None. IMPRESSION: Little interval change in moderate pulmonary venous congestion and small effusions. Persistent right lower lobe airspace disease which may represent atelectasis or pneumonia Stable position of support line and tubes.
[2018-07-26] MEDS: Lactobacillus Acidophilus 500 MU Cap PO SCH ×3 (08:50→21:50)
--- NOTE | 2018-07-26 09:44 | CP.PCM.PN ---
Subjective - Date & Time of Evaluation Date of Evaluation: 07/26/18 Time of Evaluation: 09:30 - Subjective Subjective: Medical Attending Note: Patient seen and examined this morning. no family at bedside. Unable to ROS secondary to clinical condition. Patient is scheduled for Peg placement this morning. Feeds and heparin this morning. Objective - Vital Signs/Intake and Output Vital Signs (last 24 hours): Temp Pulse Resp BP Pulse Ox 98.8 F 98 H 19 136/77 99 07/26/18 04:00 07/26/18 06:00 07/26/18 06:00 07/26/18 05:58 07/26/18 06:00 Intake and Output: 07/26/18 07/26/18 06:59 18:59 Intake Total 788.0 30 Output Total 1115 Balance -327.0 30 - Medications Medications: Current Medications Acetaminophen (Tylenol 325mg Tab) 650 mg PO Q6 PRN PRN Reason: Fever >100.4 F Last Admin: 07/19/18 21:04 Dose: 650 mg Albuterol/Ipratropium (Duoneb 3 Mg/0.5 Mg (3 Ml) Ud) 3 ml INH RQ6 [facility] Last Admin: 07/26/18 07:37 Dose: 3 ml Ascorbic Acid (Vitamin C 500 Mg Tab) 1,000 mg NG DAILY [facility] Last Admin: 07/25/18 09:17 Dose: 1,000 mg Aspirin (Aspirin Chewable) 81 mg GT DAILY [facility] Last Admin: 07/25/18 09:17 Dose: 81 mg Ergocalciferol (Drisdol 50,000 Intl Units Cap) 1 cap PO Q7D [facility] Last Admin: 07/25/18 14:15 Dose: 1 cap Furosemide (Lasix) 20 mg IVP BID [facility] Last Admin: 07/25/18 18:35 Dose: 20 mg Meropenem 1 gm/ Sodium (Chloride) 100 mls @ 100 mls/hr IVPB Q8H [facility]; Protocol Last Admin: 07/26/18 02:47 Dose: 100 mls/hr Heparin Sodium/Sodium Chloride (Heparin 72792 Units/250ml 1/2 Normal Saline) 25,000 units in 250 mls @ 6.804 mls/hr IV .Q24H PRN; Protocol PRN Reason: PROTOCOL Last Admin: 07/25/18 05:16 Dose: 6.804 mls/hr Dextrose (Dextrose 10% In Water) 1,000 mls @ 30 mls/hr IV .Q24H [facility] Last Admin: 07/26/18 08:47 Dose: 30 mls/hr Insulin Aspart (Novolog) 0 unit SC Q6 [facility]; Protocol Last Admin: 07/26/18 05:24 Dose: Not Given Insulin Glargine (Lantus) 20 unit SC Q12 [facility] Last Admin: 07/24/18 22:13 Dose: 20 u Lactobacillus Acidophilus (Bacid Acidophilus) 1 cap PO Q12H [facility] Last Admin: 07/25/18 20:11 Dose: 1 cap Methimazole (Tapazole) 10 mg PO TID [facility] Last Admin: 07/25/18 18:34 Dose: 10 mg Morphine Sulfate (Morphine) 2 mg IV Q8 PRN PRN Reason: Pain, moderate (4-7) Last Admin: 07/25/18 20:26 Dose: 2 mg Multivitamins/Vitamin C (Multi-Delyn Liquid) 5 ml PO DAILY [facility] Last Admin: 07/25/18 09:18 Dose: 5 ml Pantoprazole Sodium (Protonix Susp) 40 mg PO DAILY [facility] Last Admin: 07/25/18 09:17 Dose: 40 mg Propranolol HCl (Inderal) 5 mg PO TID [facility] Last Admin: 07/25/18 17:57 Dose: 5 mg Rosuvastatin Calcium (Crestor) 2.5 mg PO HS [facility] Last Admin: 07/25/18 21:47 Dose: 2.5 mg - Labs Labs: 07/26/18 06:34 07/26/18 06:35 PT 14.3 SECONDS (9.7-12.2) H 07/23/18 10:26 INR 1.3 07/23/18 10:26 APTT 51 SECONDS (21-34) H 07/26/18 06:34 - Constitutional Appears: Chronically Ill - Head Exam Head Exam: NORMAL INSPECTION - Eye Exam Eye Exam: EOMI - ENT Exam ENT Exam: Mucous Membranes Dry - Respiratory Exam Respiratory Exam: Decreased Breath Sounds, Rhonchi, NORMAL BREATHING PATTERN. absent: Stridor - Cardiovascular Exam Cardiovascular Exam: REGULAR RHYTHM, +S1, +S2 - GI/Abdominal Exam GI & Abdominal Exam: Soft, Normal Bowel Sounds. absent: Distended, Firm, Guarding, Rigid, Tenderness, Hypoactive Bowel Sounds, Rebound - Extremities Exam Extremities Exam: Pedal Edema. absent: Tenderness - Neurological Exam Neurological Exam: Awake - Skin Skin Exam: Dry, Intact, Normal Color, Warm Assessment and Plan (1) Septic shock Status: Acute (2) Acute respiratory failure Status: Acute (3) Urinary tract infection Status: Acute (4) Acute renal failure Status: Acute (5) Aspiration pneumonia Status: Acute (6) Diabetes mellitus Status: Chronic (7) Ventricular arrhythmia Status: Acute (8) Hyperthyroidism Status: Acute (9) Anemia Status: Acute (10) Prophylactic measure Status: Acute Attending/Attestation - Attestation I have personally seen and examined this patient.: Yes I have fully participated in the care of the patient.: Yes I have reviewed all pertinent clinical information, including history, physical exam and plan: Yes Notes (Text): Patient is status post trachestomy POD 2. patient has noted apical thrombus and LLE DVT; on heparin drip (previously on Eliquis prior to procedures) Patient is on Meropenem; pending repeat procalcitonin shows improving 0.75 from 3.86 on 07/20/18. patient has been w/o fever since 07/19/18 and white count has normalized. Discussed with ID, no vancomycin needed. Per cardiology, once procedures are done, recommend for anticoagulation for 3 months. Assessment/plan 1) Septic Shock Assessment/Plan * Infectious Disease (Dr. Brock) on case-->help appreciated * Tmax: 101.7 F (07/19/18) * Afebrile since * Criteria: leukocytosis, tachycardia * Source: aspiration pneumonia and urinary tract infection * 07/07/18: Urine: E. Coli * 07/09/18: Urine: No growth * 07/07/18: Blood culture: no growth after 5 days X2 * 07/09/18 Blood culture: no growth after 5 days X2 * 07/14/18: blood cultures: no growth to date * 07/14/18: sputum culture: yeast species * 07/14/18: Urine culture: no growth * 07/20/18: Blood culture: no growth after 5 days X2 * 07/20/18: Urine culture: no growth * 07/21/18: No Salmonella, shigella, or campobacter * 07/23/18 Urine culture: no growth * MRSA not detected * Antibiotics * Rocephin 2gm IVPB Q12H (07/14/18 through 07/20/18) * Meropenem 1 gm IV Q8H (active since 07/20/18) * Vancomycin 1 gram IVPB Q24H (being held since 07/20/18)-->vancomycin level 7.7-->per id to d/c vancomycin 2) Acute Respiratory Failure Pulmonary Edema Bilateral Pleural Effusion and Consolidations Likely Secondary to Aspiration Pneumonia Assessment/Plan * Required reintubated after 2nd fail attempt; patient underwent trachestomy 07/24/18 * off Solumedrol * Duonebs RQ6H PRN wheezing * MRSA screen: not detected * Sputum culture 07/09/18, 07/12/18, 07/14/18: yeast * Mycoplasma negative * Legionella was negative * Influenza negative * HIV negative * CT Chest 07/15/18: Moderate to large bilateral pleural effusion and associated consolidations, pathcy grround-glass infiltrates/edema noted within bilateral upper lobes * Chest xray (07/24/18): worsening infiltrates, satisfactory position of recently placed tracheostomy device. Satisfactory position of remaining support apparatus including venous access catheter and recently placed nasogastric tube * Rocephin 2gm IVPB Q12H (07/14/18 through 07/20/18) * Meropenem 1 gm IV Q8H (active since 07/20/18) * Vancomycin 1 gram IVPB Q24H (being held since 07/20/18) discontinued by ID * Bedside Thoracic U/S 07/17/18 did not reveal enough pleural effusion for Thoracentesis * Lasix 20 mg IV Q12H * Levophed Drip currently on hold * Procalcitonin uptrending as of 07/20/18; Repeat 0.75. 3) Ventricular Tachycardia NSTEMI Apical Thrombus LLE DVT Assessment/Plan * Code Blue 07/10: SVT==>VT required amiodarone, magnesium, one shock delivered * Code Blue 07/20: vtach s/p amiodarone, fluid, calcium gluconate, required compressions and shock * Cardiology Dr Francisco on case help appreciated * Echocardiogram (07/07/18): left ventricle systolic function is borderline, ejection fraction is 45-50%, no aortic regurgitation is present, mitral regurgitation is mild. Mild tricuspid regurgitation. mild pulmonary hypertension, mild pulmonic valvular regurgitation * Contrast Echo: Large apical hypokinesis a large 30 x 20 mm soft tissue apical sessile mass suggestive of thrombus overall fraction 40%. Obtain a HUBERT or/consider stress card myopathy if coronary disease is excluded further findings per report * Amiodarone discontinued * Monitor electrolytes * Heparin drip changed to Eliquis 2.5 mg 2x/day 07/18/18 and then patient placed back on Heparin Drip 07/21/18 for pending Tracheostomy on 07/24/18 * Recommended Heparin drip until possible Peg placement with GI * Aspirin 81 mg PO 1x/day. Considering patient already on Eliquis and to reduce chance of bleeding, Plavix was discontinued 07/18/18. * Eliquis is on hold for trach and/or peg placement * Propranolol 5mg PO TID 4) Urinary Tract Infection Assessment/Plan * Infectious disease on board help appreciated * 07/07/18: Urine: E. Coli * 07/09/18: Urine: No growth * 07/14/18: Urine culture: No growth * Urine Culture 07/20/18: No growth 5) Diabetes-->chronic Assessment/Plan * HgBA1c: 7.8 * Hypoglycemic protocol * Lantus 20 units subcutaneous at bedtime Q12 6) Acute on Chronic Renal Failure Assessment/Plan * Nephrology (Dr. Hyde) on board--> help appreciated * Patient will likely not need dialysis * Renal function continues to improve 7) Hyperthyroidism? Low TSH, and Free T4 Thyroid Storm Assessment/Plan * Note Thyroid studies taken before amiodarone was given (please advised this is not amiodarone induced her levels were abnormal prior) * Patient does not have prior thyroid history * Endocrinology (Dr. 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 She will need outpatient FNA Bx of the complex Left Lobe cyst (please see full report) * Methimazole 10mg PO TID * Propranolol 5 mg PO TID * Monitor LFTs 8) Anemia Likely Secondary to Chronic Diseases Assessment/Plan * Iron normal, TIBC low, Iron Saturation normal, Ferritin normal * Stool occult blood negative * B12 normal * Folate Normal * Being transfused 1 unit PRBC 07/22/18 * Patient is on Eliquis (which is being held and switched to Heparin Drip for Tracheostomy 07/24/18; and possible peg placement) for the Cardiac Apical Thrombus and on Aspirin for the NSTEMI (Plavix was discontinued 07/18/18) 9) Transminitis-->improving * Likely secondary to Sepsis and Amiodarone (which was discontinued) * Hepatitis serology negative * Slightly elevated from normal on 07/20/18 but 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 * Patient was on Heparin Drip through 07/18/18 and then started on Eliquis on this date * Heparin drip for procedures * patient was on Eliquis prior but given trachestomy and now peg placement * Fibrinogen elevated * HIT and RUSTY both negative for HIT * Currently normalized 12) 13 mm Left Adrenal Nodule * As seen on CT Chest 07/16/18 * Will need outpatient follow up for cross sectional imaging for better characte rization 13) Hypernatremia-->resolved * Free water 250 ml 3x/day via OGT * Na now normal 14) LLE DVT * Heparin drip changed to Eliquis 2.5 mg 2x/day 07/18/18 and then patient placed back on Heparin Drip 07/21/18 for pending Tracheostomy on 07/24/18 * Recommended Heparin drip until possible Peg placement with GI * Acute thrombosis of the left common femoral and femoral veins with severe reduction of the venous return on 07/18/18 venous doppler 15) Prophylactic measure * Protonix 40mg PO BID * Eliquis 2.5 mg PO BID which has been changed back to Heparin Drip for Tracheostomy 07/24/18; now allows for peg placement with GI; c/w heparin drip until procedures are completed * Bilateral SCDs * Glucerna Feedings via OGT * Subclavian line 07/14/18 * Off precedex * On morphine PRN s/p trachestomy POD 2 Disposition; Patient underwent open trachoestomy two days ago. now allows for peg placement for feeding. GI consulted. GI to possible setup peg placement today this morning. Heparin drip and feeds are on hold. Patient is on IV abx for pneumonia and urinary tract infection. Repeat procalcitonin shows improvement. Lantus held for peg placement.
[2018-07-26] MEDS: Propranolol 5 mg Tab PO SCH ×2 (10:00→13:52)
--- NOTE | 2018-07-26 11:37 | CP.PCM.PN ---
Subjective - Date & Time of Evaluation Date of Evaluation: 07/26/18 Time of Evaluation: 10:15 - Subjective Subjective: Surgery progress note for Dr. Melchor Patient examined at bedside. No acute events overnight. ROS unobtainable based on pt condition. Objective - Vital Signs/Intake and Output Vital Signs (last 24 hours): Temp Pulse Resp BP Pulse Ox 97.4 F L 87 10 L 91/55 L 100 07/26/18 08:00 07/26/18 11:00 07/26/18 11:00 07/26/18 11:02 07/26/18 11:00 Intake and Output: 07/26/18 07/26/18 06:59 18:59 Intake Total 788.0 150 Output Total 1115 150 Balance -327.0 0 - Medications Medications: Current Medications Acetaminophen (Tylenol 325mg Tab) 650 mg PO Q6 PRN PRN Reason: Fever >100.4 F Last Admin: 07/19/18 21:04 Dose: 650 mg Albuterol/Ipratropium (Duoneb 3 Mg/0.5 Mg (3 Ml) Ud) 3 ml INH RQ6 [facility] Last Admin: 07/26/18 07:37 Dose: 3 ml Ascorbic Acid (Vitamin C 500 Mg Tab) 1,000 mg NG DAILY [facility] Last Admin: 07/25/18 09:17 Dose: 1,000 mg Aspirin (Aspirin Chewable) 81 mg GT DAILY [facility] Last Admin: 07/25/18 09:17 Dose: 81 mg Ergocalciferol (Drisdol 50,000 Intl Units Cap) 1 cap PO Q7D [facility] Last Admin: 07/25/18 14:15 Dose: 1 cap Furosemide (Lasix) 20 mg IVP BID [facility] Last Admin: 07/26/18 11:02 Dose: Not Given Meropenem 1 gm/ Sodium (Chloride) 100 mls @ 100 mls/hr IVPB Q8H [facility]; Protocol Last Admin: 07/26/18 02:47 Dose: 100 mls/hr Heparin Sodium/Sodium Chloride (Heparin 90288 Units/250ml 1/2 Normal Saline) 25,000 units in 250 mls @ 6.804 mls/hr IV .Q24H PRN; Protocol PRN Reason: PROTOCOL Last Admin: 07/25/18 05:16 Dose: 6.804 mls/hr Dextrose (Dextrose 10% In Water) 1,000 mls @ 30 mls/hr IV .Q24H [facility] Last Admin: 07/26/18 08:47 Dose: 30 mls/hr Insulin Aspart (Novolog) 0 unit SC Q6 [facility]; Protocol Last Admin: 07/26/18 05:24 Dose: Not Given Insulin Glargine (Lantus) 20 unit SC Q12 [facility] Last Admin: 07/24/18 22:13 Dose: 20 u Lactobacillus Acidophilus (Bacid Acidophilus) 1 cap PO Q12H [facility] Last Admin: 07/25/18 20:11 Dose: 1 cap Methimazole (Tapazole) 10 mg PO TID [facility] Last Admin: 07/25/18 18:34 Dose: 10 mg Morphine Sulfate (Morphine) 2 mg IV Q8 PRN PRN Reason: Pain, moderate (4-7) Last Admin: 07/25/18 20:26 Dose: 2 mg Multivitamins/Vitamin C (Multi-Delyn Liquid) 5 ml PO DAILY [facility] Last Admin: 07/25/18 09:18 Dose: 5 ml Pantoprazole Sodium (Protonix Susp) 40 mg PO DAILY [facility] Last Admin: 07/25/18 09:17 Dose: 40 mg Propranolol HCl (Inderal) 5 mg PO TID [facility] Last Admin: 07/26/18 10:00 Dose: Not Given Rosuvastatin Calcium (Crestor) 2.5 mg PO HS [facility] Last Admin: 07/25/18 21:47 Dose: 2.5 mg - Labs Labs: 07/26/18 06:34 07/26/18 06:35 PT 14.3 SECONDS (9.7-12.2) H 07/23/18 10:26 INR 1.3 07/23/18 10:26 APTT 51 SECONDS (21-34) H 07/26/18 06:34 - Constitutional Appears: Non-toxic, No Acute Distress - Head Exam Head Exam: ATRAUMATIC, NORMAL INSPECTION, NORMOCEPHALIC - Eye Exam Eye Exam: Normal appearance - ENT Exam ENT Exam: Mucous Membranes Moist - Neck Exam Additional comments: tracheostomy, no surrounding erythema or active bleed - Respiratory Exam Respiratory Exam: Respiratory Distress Additional comments: on mechanical ventilation - Cardiovascular Exam Cardiovascular Exam: RRR - GI/Abdominal Exam GI & Abdominal Exam: Soft - Skin Skin Exam: Dry, Normal Color, Warm Assessment and Plan - Assessment and Plan (Free Text) Assessment: 52 year old female s/p tracheostomy, POD #2 Plan: -on mechanical ventilation s/p tracheostomy -medical management per ICU -no further surgical intervention at this time. Please re-consult as needed Will discuss with Dr. Ruiz Quintana, PGY-1
[2018-07-26] MEDS ORDERED: ePHEDrine 50 mg/ml Inj ONE (11:46)
[2018-07-26] MEDS ORDERED: Midazolam 2 MG/2 ML VIAL ONE (11:46)
[2018-07-26] MEDS ORDERED: Etomidate 20 mg/10ml Inj IV ONE (11:46)
[2018-07-26] MEDS ORDERED: Phenylephrine 10 mg/ml Inj ONE (11:46)
[2018-07-26] MEDS: Pantoprazole 40 mg Susp UD PO SCH (13:31)
[2018-07-26] MEDS: Multiple Vitamins Oral Solution PO SCH (13:32)
[2018-07-26] MEDS ORDERED: Iodixanol 320 MG/ML 100 ML BOTTLE IV ONE (14:40)
[2018-07-26] MEDS: Heparin25000 units/250ml 1/2NS 25,000 UNITS/250 ML BAG IV PRN (16:02)
--- NOTE | 2018-07-26 16:13 | CT ---
Date of service: 07/26/2018 CTA chest PE protocol Indication: rule out PE Technique: Contiguous axial images were obtained through the chest with intravenous contrast enhancement. Sagittal and coronal reconstructions were generated and reviewed. This CT exam was performed using 1 or more of the following dose reduction techniques: Automated exposure control, adjustment of the MAA and/or kV according to patient size, and/or use of iterative reconstruction technique. IV contrast: 100 mL Visipaque 320 IV Radiation dose (DLP): 249.5 MGy-cm. Comparison: CT chest without contrast performed 07/16/18 Findings: Endotracheal tube. Nasogastric tube. Limited visualization of the inferior thyroid gland appears enlarged and heterogeneous with large nodules bilaterally. The mediastinal and hilar vascular structures appear within normal limits. Cardiomegaly. Main pulmonary artery trunk measures approximately 3.2 cm in diameter, enlarged. No large central or segmental pulmonary embolus evident. Moderate pulmonary venous congestion. Moderate bilateral pleural effusions and associated consolidations. No pneumothorax. Limited visualized portions of the upper abdomen: Fatty atrophy of the pancreas. 6 mm probable splenule. 13 mm left adrenal gland nodule, indeterminate. No acute osseous abnormality detected. Impression: Moderate pulmonary venous congestion and bilateral pleural effusions and associated consolidations. Cardiomegaly. Main pulmonary artery trunk is dilated measuring approximately 3.2 cm. Correlate for pulmonary arterial hypertension. No large central or segmental pulmonary embolus identified. Limited visualization of the inferior thyroid gland appears enlarged and heterogeneous with large nodules bilaterally.
[2018-07-26] MEDS ORDERED: NOREPINEPHRINE IV PRN (17:49)
[2018-07-26] MEDS ORDERED: SODIUM CHLORIDE 0.9% IV PRN (17:49)
--- NOTE | 2018-07-26 18:24 | CP.CCUPN ---
<Brayan Gonzalez - Last Filed: 07/26/18 18:16> CCU Subjective - Physician Review Subjective (Free Text): 07/26/18 18:16 PGY1 Progress Note for Dr. Lozada Patient was seen at bedside this morning. Per nurse, no acute events overnight. No new complaints. Of note, Gold Layer Dr. Murray and GI Fellow Dr. Amaya were at bedside PEG placed today. Patient hemodynamically stable. Patient with vaginal bleeding, per nurse. No other complaints. ROS unobtainable due to clinical condition. 07/26/18 18:17 Critical Care Time Spent (in minutes): 35 CCU Objective - Vital Signs / Intake & Output Vital Signs (Last 4 hours): Vital Signs Temp Pulse Resp BP Pulse Ox 07/26/18 18:03 77 10 L 82/42 L 100 07/26/18 17:35 83/41 L 07/26/18 15:55 98 F 83 10 L 90/46 L 100 07/26/18 14:55 98.4 F 74 10 L 86/45 L 100 Intake and Output (Last 8hrs): Intake & Output 07/26/18 07/26/18 07/26/18 06:59 14:59 22:59 Intake Total 422.6 410 73.6 Output Total 650 235 60 Balance -227.4 175 13.6 Weight 104 lb 8 oz Intake: IV 100 Intake, IV Amount 287.6 310 73.6 Right Distal Port 47.6 0 13.6 Subclavian Right Proximal Port 240 310 60 Subclavian Tube Feeding 35 0 0 Other 100 Output: Urine 600 235 60 Urethral ([place]) 600 235 60 Stool 50 - Physical Exam Head: Positive for: Atraumatic, Normocephalic Pupils: Positive for: PERRL. Negative for: Sluggish, Pinpoint Extroacular Muscles: Positive for: EOMI. Negative for: Gaze Palsy Conjunctiva: Positive for: Normal. Negative for: Injected, Icteric Mouth: Positive for: Moist Mucous Membranes Nose (External): Positive for: Atraumatic. Negative for: Abrasion, Contusion, Laceration Nose (Internal): Positive for: No Active Bleeding. Negative for: Epistaxis Neck: Positive for: Normal Range of Motion, Trachea Midline. Negative for: JVD Respiratory/Chest: Positive for: Good Air Exchange, Rhonchi (mild ronchi in bilateral bases), Other (intubated and ventilated). Negative for: Wheezes, Rales Cardiovascular: Positive for: Normal S1, S2, Peripheal Pulses Present, Tachycardic. Negative for: Regular Rate and Rhythm Abdomen: Positive for: Normal Bowel Sounds. Negative for: Tenderness, Distention, Rebound, Guarding Upper Extremity: Positive for: Normal Inspection, NORMAL PULSES. Negative for: Cyanosis, Edema Lower Extremity: Positive for: Normal Inspection. Negative for: Edema, CALF TENDERNESS Neurological: Positive for: Other (weaning from sedation, intermittently opens eyes and tracks staff across room, but minimal spontaneous movements, not following verbal or pantomimed commands) Skin: Positive for: Warm, Dry, Normal Color Psychiatric: Positive for: Alert - Medications Active Medications: Active Medications Generic Name Dose Route Start Last Admin Trade Name Freq PRN Reason Stop Dose Admin Acetaminophen 650 mg 07/12/18 15:57 07/19/18 21:04 Tylenol 325mg Tab PO 650 mg Q6 PRN Administration Fever >100.4 F Albuterol/Ipratropium 3 ml 07/14/18 20:00 07/26/18 07:37 Duoneb 3 Mg/0.5 Mg (3 Ml) Ud INH 3 ml RQ6 MANOLO Administration Ascorbic Acid 1,000 mg 07/24/18 10:00 07/26/18 13:31 Vitamin C 500 Mg Tab NG 1,000 mg DAILY MANOLO Administration Aspirin 81 mg 07/17/18 10:00 07/26/18 13:30 Aspirin Chewable GT 81 mg DAILY MANOLO Administration Ergocalciferol 1 cap 07/11/18 12:45 07/25/18 14:15 Drisdol 50,000 Intl Units Cap PO 1 cap Q7D MANOLO Administration Furosemide 20 mg 07/17/18 18:00 07/26/18 17:35 Lasix IVP Not Given BID MANOLO Meropenem 1 gm/ Sodium 100 mls @ 100 mls/hr 07/20/18 11:45 07/26/18 13:15 Chloride IVPB 100 mls/hr Q8H MANOLO Administration Protocol Heparin Sodium/Sodium Chloride 25,000 units in 250 mls @ 6.804 mls/hr 07/21/18 10:19 07/26/18 16:02 Heparin 48875 Units/250ml 1/2 Normal Saline IV 6.804 mls/hr .Q24H PRN Administration PROTOCOL Protocol 12 UNITS/KG/HR Dextrose 1,000 mls @ 30 mls/hr 07/24/18 08:00 07/26/18 08:47 Dextrose 10% In Water IV 30 mls/hr .Q24H MANOLO Administration Norepinephrine Bitartrate 4 mg 254 mls @ 19.05 mls/hr 07/26/18 17:57 07/26/18 18:03 / Sodium Chloride IV 5 mcg/min .[id number] PRN 19.05 mls/hr TITRATE PER MD ORDER Administration Protocol 5 MCG/MIN Insulin Aspart 0 unit 07/11/18 08:28 07/26/18 12:00 Novolog SC Not Given Q6 MANOLO Protocol Insulin Glargine 20 unit 07/17/18 09:46 07/24/18 22:13 Lantus SC 20 u Q12 MANOLO Administration Lactobacillus Acidophilus 1 cap 07/08/18 20:00 07/26/18 13:33 Bacid Acidophilus PO 1 cap Q12H MANOLO Administration Methimazole 10 mg 07/25/18 18:00 07/26/18 17:37 Tapazole PO 10 mg TID MANOLO Administration Multivitamins/Vitamin C 5 ml 07/24/18 10:00 07/26/18 13:32 Multi-Delyn Liquid PO 5 ml DAILY MANOLO Administration Pantoprazole Sodium 40 mg 07/20/18 10:00 07/26/18 13:31 Protonix Susp PO 40 mg DAILY MANOLO Administration Propranolol HCl 5 mg 07/16/18 10:00 07/26/18 13:52 Inderal PO Not Given TID MANOLO Rosuvastatin Calcium 2.5 mg 07/13/18 22:00 07/25/18 21:47 Crestor PO 2.5 mg HS MANOLO Administration - Patient Studies Lab Studies: Lab Studies 07/26/18 07/26/18 07/26/18 Range/Units 17:41 14:01 10:43 WBC (4.8-10.8) K/uL RBC (3.80-5.20) Mil/uL Hgb (11.0-16.0) g/dL Hct (34.0-47.0) % MCV (81.0-99.0) fL MCH (27.0-31.0) pg MCHC (33.0-37.0) g/dL RDW (11.5-14.5) % Plt Count (130-400) K/uL MPV (7.2-11.7) fL Neut % (Auto) (50.0-75.0) % Lymph % (Auto) (20.0-40.0) % [place] % (Auto) (0.0-10.0) % Eos % (Auto) (0.0-4.0) % Baso % (Auto) (0.0-2.0) % Neut # (Auto) (1.8-7.0) K/uL Lymph # (Auto) (1.0-4.3) K/uL [place] # (Auto) (0.0-0.8) K/uL Eos # (Auto) (0.0-0.7) K/uL Baso # (Auto) (0.0-0.2) K/uL APTT (21-34) SECONDS Puncture Site pCO2 (35-45) mm/Hg pO2 (80-100) mm/Hg HCO3 (21-28) mmol/L ABG pH (7.35-7.45) ABG Total CO2 (22-28) mmol/L ABG O2 Saturation (95-98) % ABG Base Excess (-2.0-3.0) mmol/L ABG Hemoglobin (11.7-17.4) g/dL ABG Carboxyhemoglobin (0.5-1.5) % POC ABG HHb (Measured) (0.0-5.0) % ABG Methemoglobin (0.0-3.0) % [place]ev[place] Test A-a O2 Difference mm/Hg Respiratory Index Hgb O2 Saturation (95.0-98.0) % Vent Mode Mechanical Rate FiO2 % Tidal Volume PEEP Sodium (132-148) mmol/L Potassium (3.6-5.2) mmol/L Chloride (98-107) mmol/L Carbon Dioxide (22-30) mmol/L Anion Gap (10-20) BUN (7-17) mg/dL Creatinine (0.7-1.2) mg/dL Est GFR ( Amer) Est GFR (Non-Af Amer) POC Glucose (mg/dL) 116 H 127 H 127 H (65-110) mg/dL Random Glucose (65-105) mg/dL Calcium (8.6-10.4) mg/dl Phosphorus (2.5-4.5) mg/dL Magnesium (1.6-2.3) mg/dL Total Bilirubin (0.2-1.3) mg/dL AST (14-36) U/L ALT (9-52) U/L Alkaline Phosphatase (38-126) U/L Total Protein (6.3-8.3) g/dL Albumin (3.5-5.0) g/dL Globulin (2.2-3.9) gm/dL Albumin/Globulin Ratio (1.0-2.1) 07/26/18 07/26/18 07/26/18 Range/Units 06:35 06:34 06:34 WBC 7.9 (4.8-10.8) K/uL RBC 3.19 L (3.80-5.20) Mil/uL Hgb 9.4 L (11.0-16.0) g/dL Hct 28.1 L (34.0-47.0) % MCV 88.0 (81.0-99.0) fL MCH 29.6 (27.0-31.0) pg MCHC 33.6 (33.0-37.0) g/dL RDW 15.2 H (11.5-14.5) % Plt Count 250 (130-400) K/uL MPV 9.0 (7.2-11.7) fL Neut % (Auto) 62.8 (50.0-75.0) % Lymph % (Auto) 23.7 (20.0-40.0) % [place] % (Auto) 9.7 (0.0-10.0) % Eos % (Auto) 3.2 (0.0-4.0) % Baso % (Auto) 0.6 (0.0-2.0) % Neut # (Auto) 4.9 (1.8-7.0) K/uL Lymph # (Auto) 1.9 (1.0-4.3) K/uL [place] # (Auto) 0.8 (0.0-0.8) K/uL Eos # (Auto) 0.3 (0.0-0.7) K/uL Baso # (Auto) 0.0 (0.0-0.2) K/uL APTT 51 H (21-34) SECONDS Puncture Site pCO2 (35-45) mm/Hg pO2 (80-100) mm/Hg HCO3 (21-28) mmol/L ABG pH (7.35-7.45) ABG Total CO2 (22-28) mmol/L ABG O2 Saturation (95-98) % ABG Base Excess (-2.0-3.0) mmol/L ABG Hemoglobin (11.7-17.4) g/dL ABG Carboxyhemoglobin (0.5-1.5) % POC ABG HHb (Measured) (0.0-5.0) % ABG Methemoglobin (0.0-3.0) % [place]evon Test A-a O2 Difference mm/Hg Respiratory Index Hgb O2 Saturation (95.0-98.0) % Vent Mode Mechanical Rate FiO2 % Tidal Volume PEEP Sodium 141 (132-148) mmol/L Potassium 3.8 (3.6-5.2) mmol/L Chloride 104 (98-107) mmol/L Carbon Dioxide 30 (22-30) mmol/L Anion Gap 11 (10-20) BUN 23 H (7-17) mg/dL Creatinine 1.1 (0.7-1.2) mg/dL Est GFR ( Amer) > 60 Est GFR (Non-Af Amer) 52 POC Glucose (mg/dL) (65-110) mg/dL Random Glucose 106 H (65-105) mg/dL Calcium 8.2 L (8.6-10.4) mg/dl Phosphorus 3.2 (2.5-4.5) mg/dL Magnesium 2.6 H (1.6-2.3) mg/dL Total Bilirubin 0.7 (0.2-1.3) mg/dL AST 35 (14-36) U/L ALT 34 (9-52) U/L Alkaline Phosphatase 259 H (38-126) U/L Total Protein 6.3 (6.3-8.3) g/dL Albumin 2.7 L (3.5-5.0) g/dL Globulin 3.6 (2.2-3.9) gm/dL Albumin/Globulin Ratio 0.8 L (1.0-2.1) 07/26/18 07/26/18 07/26/18 Range/Units 05:30 05:22 00:16 WBC (4.8-10.8) K/uL RBC (3.80-5.20) Mil/uL Hgb (11.0-16.0) g/dL Hct (34.0-47.0) % MCV (81.0-99.0) fL MCH (27.0-31.0) pg MCHC (33.0-37.0) g/dL RDW (11.5-14.5) % Plt Count (130-400) K/uL MPV (7.2-11.7) fL Neut % (Auto) (50.0-75.0) % Lymph % (Auto) (20.0-40.0) % [place] % (Auto) (0.0-10.0) % Eos % (Auto) (0.0-4.0) % Baso % (Auto) (0.0-2.0) % Neut # (Auto) (1.8-7.0) K/uL Lymph # (Auto) (1.0-4.3) K/uL [place] # (Auto) (0.0-0.8) K/uL Eos # (Auto) (0.0-0.7) K/uL Baso # (Auto) (0.0-0.2) K/uL APTT (21-34) SECONDS Puncture Site L brac pCO2 35 (35-45) mm/Hg pO2 79 L (80-100) mm/Hg HCO3 28.0 (21-28) mmol/L ABG pH 7.50 H (7.35-7.45) ABG Total CO2 28.4 H (22-28) mmol/L ABG O2 Saturation 98.2 H (95-98) % ABG Base Excess 4.0 H (-2.0-3.0) mmol/L ABG Hemoglobin 9.8 L (11.7-17.4) g/dL ABG Carboxyhemoglobin 1.7 H (0.5-1.5) % POC ABG HHb (Measured) 1.8 (0.0-5.0) % ABG Methemoglobin 1.0 (0.0-3.0) % Kevon Test Na A-a O2 Difference 234.0 mm/Hg Respiratory Index 3.0 Hgb O2 Saturation 95.5 (95.0-98.0) % Vent Mode Prvc Mechanical Rate 10 FiO2 50.0 % Tidal Volume 440 PEEP 5 Sodium (132-148) mmol/L Potassium (3.6-5.2) mmol/L Chloride (98-107) mmol/L Carbon Dioxide (22-30) mmol/L Anion Gap (10-20) BUN (7-17) mg/dL Creatinine (0.7-1.2) mg/dL Est GFR ( Amer) Est GFR (Non-Af Amer) POC Glucose (mg/dL) 123 H 113 H (65-110) mg/dL Random Glucose (65-105) mg/dL Calcium (8.6-10.4) mg/dl Phosphorus (2.5-4.5) mg/dL Magnesium (1.6-2.3) mg/dL Total Bilirubin (0.2-1.3) mg/dL AST (14-36) U/L ALT (9-52) U/L Alkaline Phosphatase (38-126) U/L Total Protein (6.3-8.3) g/dL Albumin (3.5-5.0) g/dL Globulin (2.2-3.9) gm/dL Albumin/Globulin Ratio (1.0-2.1) 07/25/18 Range/Units 18:39 WBC (4.8-10.8) K/uL RBC (3.80-5.20) Mil/uL Hgb (11.0-16.0) g/dL Hct (34.0-47.0) % MCV (81.0-99.0) fL MCH (27.0-31.0) pg MCHC (33.0-37.0) g/dL RDW (11.5-14.5) % Plt Count (130-400) K/uL MPV (7.2-11.7) fL Neut % (Auto) (50.0-75.0) % Lymph % (Auto) (20.0-40.0) % [place] % (Auto) (0.0-10.0) % Eos % (Auto) (0.0-4.0) % Baso % (Auto) (0.0-2.0) % Neut # (Auto) (1.8-7.0) K/uL Lymph # (Auto) (1.0-4.3) K/uL [place] # (Auto) (0.0-0.8) K/uL Eos # (Auto) (0.0-0.7) K/uL Baso # (Auto) (0.0-0.2) K/uL APTT (21-34) SECONDS Puncture Site pCO2 (35-45) mm/Hg pO2 (80-100) mm/Hg HCO3 (21-28) mmol/L ABG pH (7.35-7.45) ABG Total CO2 (22-28) mmol/L ABG O2 Saturation (95-98) % ABG Base Excess (-2.0-3.0) mmol/L ABG Hemoglobin (11.7-17.4) g/dL ABG Carboxyhemoglobin (0.5-1.5) % POC ABG HHb (Measured) (0.0-5.0) % ABG Methemoglobin (0.0-3.0) % Kevon Test A-a O2 Difference mm/Hg Respiratory Index Hgb O2 Saturation (95.0-98.0) % Vent Mode Mechanical Rate FiO2 % Tidal Volume PEEP Sodium (132-148) mmol/L Potassium (3.6-5.2) mmol/L Chloride (98-107) mmol/L Carbon Dioxide (22-30) mmol/L Anion Gap (10-20) BUN (7-17) mg/dL Creatinine (0.7-1.2) mg/dL Est GFR ( Amer) Est GFR (Non-Af Amer) POC Glucose (mg/dL) 131 H (65-110) mg/dL Random Glucose (65-105) mg/dL Calcium (8.6-10.4) mg/dl Phosphorus (2.5-4.5) mg/dL Magnesium (1.6-2.3) mg/dL Total Bilirubin (0.2-1.3) mg/dL AST (14-36) U/L ALT (9-52) U/L Alkaline Phosphatase (38-126) U/L Total Protein (6.3-8.3) g/dL Albumin (3.5-5.0) g/dL Globulin (2.2-3.9) gm/dL Albumin/Globulin Ratio (1.0-2.1) Laboratory Results - last 24 hr 07/25/18 07/26/18 07/26/18 18:39 00:16 05:22 WBC RBC Hgb Hct MCV MCH MCHC RDW Plt Count MPV Neut % (Auto) Lymph % (Auto) [place] % (Auto) Eos % (Auto) Baso % (Auto) Neut # (Auto) Lymph # (Auto) [place] # (Auto) Eos # (Auto) Baso # (Auto) APTT Puncture Site pCO2 pO2 HCO3 ABG pH ABG Total CO2 ABG O2 Saturation ABG Base Excess ABG Hemoglobin ABG Carboxyhemoglobin POC ABG HHb (Measured) ABG Methemoglobin Kevon Test A-a O2 Difference Respiratory Index Hgb O2 Saturation Vent Mode Mechanical Rate FiO2 Tidal Volume PEEP Sodium Potassium Chloride Carbon Dioxide Anion Gap BUN Creatinine Est GFR ( Amer) Est GFR (Non-Af Amer) POC Glucose (mg/dL) 131 H 113 H 123 H Random Glucose Calcium Phosphorus Magnesium Total Bilirubin AST ALT Alkaline Phosphatase Total Protein Albumin Globulin Albumin/Globulin Ratio 07/26/18 07/26/18 07/26/18 05:30 06:34 06:34 WBC 7.9 RBC 3.19 L Hgb 9.4 L Hct 28.1 L MCV 88.0 MCH 29.6 MCHC 33.6 RDW 15.2 H Plt Count 250 MPV 9.0 Neut % (Auto) 62.8 Lymph % (Auto) 23.7 [place] % (Auto) 9.7 Eos % (Auto) 3.2 Baso % (Auto) 0.6 Neut # (Auto) 4.9 Lymph # (Auto) 1.9 [place] # (Auto) 0.8 Eos # (Auto) 0.3 Baso # (Auto) 0.0 APTT 51 H Puncture Site L brac pCO2 35 pO2 79 L HCO3 28.0 ABG pH 7.50 H ABG Total CO2 28.4 H ABG O2 Saturation 98.2 H ABG Base Excess 4.0 H ABG Hemoglobin 9.8 L ABG Carboxyhemoglobin 1.7 H POC ABG HHb (Measured) 1.8 ABG Methemoglobin 1.0 Kevon Test Na A-a O2 Difference 234.0 Respiratory Index 3.0 Hgb O2 Saturation 95.5 Vent Mode Prvc Mechanical Rate 10 FiO2 50.0 Tidal Volume 440 PEEP 5 Sodium Potassium Chloride Carbon Dioxide Anion Gap BUN Creatinine Est GFR ( Amer) Est GFR (Non-Af Amer) POC Glucose (mg/dL) Random Glucose Calcium Phosphorus Magnesium Total Bilirubin AST ALT Alkaline Phosphatase Total Protein Albumin Globulin Albumin/Globulin Ratio 07/26/18 07/26/18 07/26/18 06:35 10:43 14:01 WBC RBC Hgb Hct MCV MCH MCHC RDW Plt Count MPV Neut % (Auto) Lymph % (Auto) [place] % (Auto) Eos % (Auto) Baso % (Auto) Neut # (Auto) Lymph # (Auto) [place] # (Auto) Eos # (Auto) Baso # (Auto) APTT Puncture Site pCO2 pO2 HCO3 ABG pH ABG Total CO2 ABG O2 Saturation ABG Base Excess ABG Hemoglobin ABG Carboxyhemoglobin POC ABG HHb (Measured) ABG Methemoglobin Kevon Test A-a O2 Difference Respiratory Index Hgb O2 Saturation Vent Mode Mechanical Rate FiO2 Tidal Volume PEEP Sodium 141 Potassium 3.8 Chloride 104 Carbon Dioxide 30 Anion Gap 11 BUN 23 H Creatinine 1.1 Est GFR ( Amer) > 60 Est GFR (Non-Af Amer) 52 POC Glucose (mg/dL) 127 H 127 H Random Glucose 106 H Calcium 8.2 L Phosphorus 3.2 Magnesium 2.6 H Total Bilirubin 0.7 AST 35 ALT 34 Alkaline Phosphatase 259 H Total Protein 6.3 Albumin 2.7 L Globulin 3.6 Albumin/Globulin Ratio 0.8 L 07/26/18 17:41 WBC RBC Hgb Hct MCV MCH MCHC RDW Plt Count MPV Neut % (Auto) Lymph % (Auto) [place] % (Auto) Eos % (Auto) Baso % (Auto) Neut # (Auto) Lymph # (Auto) [place] # (Auto) Eos # (Auto) Baso # (Auto) APTT Puncture Site pCO2 pO2 HCO3 ABG pH ABG Total CO2 ABG O2 Saturation ABG Base Excess ABG Hemoglobin ABG Carboxyhemoglobin POC ABG HHb (Measured) ABG Methemoglobin Kevon Test A-a O2 Difference Respiratory Index Hgb O2 Saturation Vent Mode Mechanical Rate FiO2 Tidal Volume PEEP Sodium Potassium Chloride Carbon Dioxide Anion Gap BUN Creatinine Est GFR ( Amer) Est GFR (Non-Af Amer) POC Glucose (mg/dL) 116 H Random Glucose Calcium Phosphorus Magnesium Total Bilirubin AST ALT Alkaline Phosphatase Total Protein Albumin Globulin Albumin/Globulin Ratio EKG/Cardiology Studies: Cardiology / EKG Studies 07/26/18 08:26 EKG [ELECTROCARDIOGRAM] Stat Comment: Mode Of Transportation: Reason For Exam: long QT on prior EKG Fingerstick Blood Sugar Results: 81 Review of Systems - Review of Systems All systems: reviewed and no additional remarkable complaints except Critical Care Progress Note - Nutrition Nutrition: Nutrition Category Date Time Status NPO Diet [DIET] Diets 07/25/18 Breakfast Active Assessment/Plan - Assessment and Plan (Free Text) Assessment: This is a 52 yo female with PMH of DM2 and hypercholesterolemia who presented to with cough, post-tussive emesis, and malaise x2-3 weeks. She was admitted to the ICU for respiratory failure and acute renal failure. Of note, patient was CODE BLUE on 07/10 (V-tach). Remains intubated after failing extubation, as pat ient vomited just hours after extubation. Today she is status-post tracheostomy POD-[address] Melchor. Patient is hemodynamically stable, and is status-post PEG placement with Gold Layer Dr. Murray and GI Fellow Dr. Amaya. Plan Neuro - Anoxic brain injury - Hemodynamically stable - Precedex discontinued Pulm - Hypoxic respiratory failure secondary to pulmonary congestion, renal failure - Goal SaO2 > 92% and paO2 > 55 - (Po2/FiO2)x100% = 179 * FiO2 at 50% (for goal PO2/FiO2 ratio > 300) * CT angiogram obtained 07/26 to rule out PE -- Negative for PE. - Duonebs 2 ml INH RQ4 - Continue cpap trials - Status-post tracheostomy 07/24 POD-[address] Melchor - CXR official report (07/25): worsening infiltrates, satisfactory position of recently placed tracheostomy device, Satisfactory position of remaining support apparatus including venous access catheter and recently placed nasogastric tube CV - Blood pressure 82/42 - Levophed started - Cardiac arrest from unknown etiology - Cardiology consulted. Appreciate recs. - Repeat ECHO from shows left ventricular thrombus; - Doppler show LLE DVT, right cephalic vein thrombus - Patient on Lovenox - Continue daily aspirin 81 mg, crestor 2.5 mg PO HS - Maintain MAP>70 - Discontinued propranolol 5mg PO TID GI - Glucerna for tube feeds tomorrow morning - Protonix 40 mg IV daily - Dr. Murray consulted for PEG placement (recommendations appreciated) * Stop Tube Feedings after midnight prior to scheduled PEG * Stop anticoagulation 4 hours prior to scheduled PEG - Pelvic/ trasnvaginal ultrasound performed. Pending report - Patient's states patient still has regular menstrual cycles monthly - Monitor H/H Renal - Acute renal failure resolving - Avoid nephrotoxic drugs Heme: - No acute issues - Continue to monitor H/H Endo - ISS for coverage, q6h - Methimazole 10 mg PO TID - FSH LH and Prolactin Pending Infectious Disease - Merrem 1 gm daily - Discontinued: vancomycin 1 gm daily - Negative cultures - ID following, appreciate all recs Dispo: pending another PS/CPAP trial, tracheostomy placed 07/24 FEN: NPO, on Tube Feeds Access: Peripheral IVs, right subclavian TLC, ETT, OGT Consults: Palliative, Endo, Nephro, Cardio, Neuro, Cardio, GI Ppx: Protonix for GI, SCDs Code status: FULL Next of kin: Martina Isaacs () Patient seen, reviewed, and case discussed with attending, Dr. Neville Gonzalez PGY-1 <Errol Lozada S - Last Filed: 07/26/18 18:52> CCU Objective - Vital Signs / Intake & Output Vital Signs (Last 4 hours): Vital Signs Temp Pulse Resp BP Pulse Ox 07/26/18 18:03 77 10 L 82/42 L 100 07/26/18 18:00 77 10 L 82/42 L 100 07/26/18 17:35 83/41 L 07/26/18 17:00 78 10 L 83/41 L 99 07/26/18 15:55 98 F 83 10 L 90/46 L 100 07/26/18 14:55 98.4 F 74 10 L 86/45 L 100 Intake and Output (Last 8hrs): Intake & Output 07/26/18 07/26/18 07/26/18 06:59 14:59 22:59 Intake Total 422.6 410 178.4 Output Total 650 200 190 Balance -227.4 210 -11.6 Weight 104 lb 8 oz Intake: IV 100 Intake, IV Amount 287.6 310 178.4 Left Antecubital 20.4 Right Distal Port 47.6 0 38 Subclavian Right Proximal Port 240 310 120 Subclavian Tube Feeding 35 0 0 Other 100 Output: Urine 600 200 120 Urethral ([place]) 600 200 120 Stool 50 70 - Medications Active Medications: Active Medications Generic Name Dose Route Start Last Admin Trade Name Freq PRN Reason Stop Dose Admin Acetaminophen 650 mg 07/12/18 15:57 07/19/18 21:04 Tylenol 325mg Tab PO 650 mg Q6 PRN Administration Fever >100.4 F Albuterol/Ipratropium 3 ml 07/14/18 20:00 07/26/18 07:37 Duoneb 3 Mg/0.5 Mg (3 Ml) Ud INH 3 ml RQ6 MANOLO Administration Ascorbic Acid 1,000 mg 07/24/18 10:00 07/26/18 13:31 Vitamin C 500 Mg Tab NG 1,000 mg DAILY MANOLO Administration Aspirin 81 mg 07/17/18 10:00 07/26/18 13:30 Aspirin Chewable GT 81 mg DAILY MANOLO Administration Ergocalciferol 1 cap 07/11/18 12:45 07/25/18 14:15 Drisdol 50,000 Intl Units Cap PO 1 cap Q7D MANOLO Administration Furosemide 20 mg 07/17/18 18:00 07/26/18 17:35 Lasix IVP Not Given BID MANOLO Meropenem 1 gm/ Sodium 100 mls @ 100 mls/hr 07/20/18 11:45 07/26/18 13:15 Chloride IVPB 100 mls/hr Q8H MANOLO Administration Protocol Heparin Sodium/Sodium Chloride 25,000 units in 250 mls @ 6.804 mls/hr 07/21/18 10:19 07/26/18 16:02 Heparin 88664 Units/250ml 1/2 Normal Saline IV 6.804 mls/hr .Q24H PRN Administration PROTOCOL Protocol 12 UNITS/KG/HR Dextrose 1,000 mls @ 30 mls/hr 07/24/18 08:00 07/26/18 08:47 Dextrose 10% In Water IV 30 mls/hr .Q24H MANOLO Administration Norepinephrine Bitartrate 4 mg 254 mls @ 19.05 mls/hr 07/26/18 17:57 07/26/18 18:03 / Sodium Chloride IV 5 mcg/min .[id number] PRN 19.05 mls/hr TITRATE PER MD ORDER Administration Protocol 5 MCG/MIN Insulin Aspart 0 unit 07/11/18 08:28 07/26/18 18:21 Novolog SC Not Given Q6 MANOLO Protocol Insulin Glargine 20 unit 07/17/18 09:46 07/24/18 22:13 Lantus SC 20 u Q12 MANOLO Administration Lactobacillus Acidophilus 1 cap 07/08/18 20:00 07/26/18 13:33 Bacid Acidophilus PO 1 cap Q12H MANOLO Administration Methimazole 10 mg 07/25/18 18:00 07/26/18 17:37 Tapazole PO 10 mg TID MANOLO Administration Multivitamins/Vitamin C 5 ml 07/24/18 10:00 07/26/18 13:32 Multi-Delyn Liquid PO 5 ml DAILY MANOLO Administration Pantoprazole Sodium 40 mg 07/20/18 10:00 07/26/18 13:31 Protonix Susp PO 40 mg DAILY MANOL[facility] Administration Rosuvastatin Calcium 2.5 mg 07/13/18 22:00 07/25/18 21:47 Crestor PO 2.5 mg HS MANOLO Administration - Patient Studies Lab Studies: Lab Studies 07/26/18 07/26/18 07/26/18 Range/Units 17:41 14:01 10:43 WBC (4.8-10.8) K/uL RBC (3.80-5.20) Mil/uL Hgb (11.0-16.0) g/dL Hct (34.0-47.0) % MCV (81.0-99.0) fL MCH (27.0-31.0) pg MCHC (33.0-37.0) g/dL RDW (11.5-14.5) % Plt Count (130-400) K/uL MPV (7.2-11.7) fL Neut % (Auto) (50.0-75.0) % Lymph % (Auto) (20.0-40.0) % [place] % (Auto) (0.0-10.0) % Eos % (Auto) (0.0-4.0) % Baso % (Auto) (0.0-2.0) % Neut # (Auto) (1.8-7.0) K/uL Lymph # (Auto) (1.0-4.3) K/uL [place] # (Auto) (0.0-0.8) K/uL Eos # (Auto) (0.0-0.7) K/uL Baso # (Auto) (0.0-0.2) K/uL APTT (21-34) SECONDS Puncture Site pCO2 (35-45) mm/Hg pO2 (80-100) mm/Hg HCO3 (21-28) mmol/L ABG pH (7.35-7.45) ABG Total CO2 (22-28) mmol/L ABG O2 Saturation (95-98) % ABG Base Excess (-2.0-3.0) mmol/L ABG Hemoglobin (11.7-17.4) g/dL ABG Carboxyhemoglobin (0.5-1.5) % POC ABG HHb (Measured) (0.0-5.0) % ABG Methemoglobin (0.0-3.0) % Kevon Test A-a O2 Difference mm/Hg Respiratory Index Hgb O2 Saturation (95.0-98.0) % Vent Mode Mechanical Rate FiO2 % Tidal Volume PEEP Sodium (132-148) mmol/L Potassium (3.6-5.2) mmol/L Chloride (98-107) mmol/L Carbon Dioxide (22-30) mmol/L Anion Gap (10-20) BUN (7-17) mg/dL Creatinine (0.7-1.2) mg/dL Est GFR ( Amer) Est GFR (Non-Af Amer) POC Glucose (mg/dL) 116 H 127 H 127 H (65-110) mg/dL Random Glucose (65-105) mg/dL Calcium (8.6-10.4) mg/dl Phosphorus (2.5-4.5) mg/dL Magnesium (1.6-2.3) mg/dL Total Bilirubin (0.2-1.3) mg/dL AST (14-36) U/L ALT (9-52) U/L Alkaline Phosphatase (38-126) U/L Total Protein (6.3-8.3) g/dL Albumin (3.5-5.0) g/dL Globulin (2.2-3.9) gm/dL Albumin/Globulin Ratio (1.0-2.1) 07/26/18 07/26/18 07/26/18 Range/Units 06:35 06:34 06:34 WBC 7.9 (4.8-10.8) K/uL RBC 3.19 L (3.80-5.20) Mil/uL Hgb 9.4 L (11.0-16.0) g/dL Hct 28.1 L (34.0-47.0) % MCV 88.0 (81.0-99.0) fL MCH 29.6 (27.0-31.0) pg MCHC 33.6 (33.0-37.0) g/dL RDW 15.2 H (11.5-14.5) % Plt Count 250 (130-400) K/uL MPV 9.0 (7.2-11.7) fL Neut % (Auto) 62.8 (50.0-75.0) % Lymph % (Auto) 23.7 (20.0-40.0) % [place] % (Auto) 9.7 (0.0-10.0) % Eos % (Auto) 3.2 (0.0-4.0) % Baso % (Auto) 0.6 (0.0-2.0) % Neut # (Auto) 4.9 (1.8-7.0) K/uL Lymph # (Auto) 1.9 (1.0-4.3) K/uL [place] # (Auto) 0.8 (0.0-0.8) K/uL Eos # (Auto) 0.3 (0.0-0.7) K/uL Baso # (Auto) 0.0 (0.0-0.2) K/uL APTT 51 H (21-34) SECONDS Puncture Site pCO2 (35-45) mm/Hg pO2 (80-100) mm/Hg HCO3 (21-28) mmol/L ABG pH (7.35-7.45) ABG Total CO2 (22-28) mmol/L ABG O2 Saturation (95-98) % ABG Base Excess (-2.0-3.0) mmol/L ABG Hemoglobin (11.7-17.4) g/dL ABG Carboxyhemoglobin (0.5-1.5) % POC ABG HHb (Measured) (0.0-5.0) % ABG Methemoglobin (0.0-3.0) % Kevon Test A-a O2 Difference mm/Hg Respiratory Index Hgb O2 Saturation (95.0-98.0) % Vent Mode Mechanical Rate FiO2 % Tidal Volume PEEP Sodium 141 (132-148) mmol/L Potassium 3.8 (3.6-5.2) mmol/L Chloride 104 (98-107) mmol/L Carbon Dioxide 30 (22-30) mmol/L Anion Gap 11 (10-20) BUN 23 H (7-17) mg/dL Creatinine 1.1 (0.7-1.2) mg/dL Est GFR ( Amer) > 60 Est GFR (Non-Af Amer) 52 POC Glucose (mg/dL) (65-110) mg/dL Random Glucose 106 H (65-105) mg/dL Calcium 8.2 L (8.6-10.4) mg/dl Phosphorus 3.2 (2.5-4.5) mg/dL Magnesium 2.6 H (1.6-2.3) mg/dL Total Bilirubin 0.7 (0.2-1.3) mg/dL AST 35 (14-36) U/L ALT 34 (9-52) U/L Alkaline Phosphatase 259 H (38-126) U/L Total Protein 6.3 (6.3-8.3) g/dL Albumin 2.7 L (3.5-5.0) g/dL Globulin 3.6 (2.2-3.9) gm/dL Albumin/Globulin Ratio 0.8 L (1.0-2.1) 07/26/18 07/26/18 07/26/18 Range/Units 05:30 05:22 00:16 WBC (4.8-10.8) K/uL RBC (3.80-5.20) Mil/uL Hgb (11.0-16.0) g/dL Hct (34.0-47.0) % MCV (81.0-99.0) fL MCH (27.0-31.0) pg MCHC (33.0-37.0) g/dL RDW (11.5-14.5) % Plt Count (130-400) K/uL MPV (7.2-11.7) fL Neut % (Auto) (50.0-75.0) % Lymph % (Auto) (20.0-40.0) % [place] % (Auto) (0.0-10.0) % Eos % (Auto) (0.0-4.0) % Baso % (Auto) (0.0-2.0) % Neut # (Auto) (1.8-7.0) K/uL Lymph # (Auto) (1.0-4.3) K/uL [place] # (Auto) (0.0-0.8) K/uL Eos # (Auto) (0.0-0.7) K/uL Baso # (Auto) (0.0-0.2) K/uL APTT (21-34) SECONDS Puncture Site L brac pCO2 35 (35-45) mm/Hg pO2 79 L (80-100) mm/Hg HCO3 28.0 (21-28) mmol/L ABG pH 7.50 H (7.35-7.45) ABG Total CO2 28.4 H (22-28) mmol/L ABG O2 Saturation 98.2 H (95-98) % ABG Base Excess 4.0 H (-2.0-3.0) mmol/L ABG Hemoglobin 9.8 L (11.7-17.4) g/dL ABG Carboxyhemoglobin 1.7 H (0.5-1.5) % POC ABG HHb (Measured) 1.8 (0.0-5.0) % ABG Methemoglobin 1.0 (0.0-3.0) % Kevon Test Na A-a O2 Difference 234.0 mm/Hg Respiratory Index 3.0 Hgb O2 Saturation 95.5 (95.0-98.0) % Vent Mode Prvc Mechanical Rate 10 FiO2 50.0 % Tidal Volume 440 PEEP 5 Sodium (132-148) mmol/L Potassium (3.6-5.2) mmol/L Chloride (98-107) mmol/L Carbon Dioxide (22-30) mmol/L Anion Gap (10-20) BUN (7-17) mg/dL Creatinine (0.7-1.2) mg/dL Est GFR ( Amer) Est GFR (Non-Af Amer) POC Glucose (mg/dL) 123 H 113 H (65-110) mg/dL Random Glucose (65-105) mg/dL Calcium (8.6-10.4) mg/dl Phosphorus (2.5-4.5) mg/dL Magnesium (1.6-2.3) mg/dL Total Bilirubin (0.2-1.3) mg/dL AST (14-36) U/L ALT (9-52) U/L Alkaline Phosphatase (38-126) U/L Total Protein (6.3-8.3) g/dL Albumin (3.5-5.0) g/dL Globulin (2.2-3.9) gm/dL Albumin/Globulin Ratio (1.0-2.1) Laboratory Results - last 24 hr 07/26/18 07/26/18 07/26/18 00:16 05:22 05:30 WBC RBC Hgb Hct MCV MCH MCHC RDW Plt Count MPV Neut % (Auto) Lymph % (Auto) [place] % (Auto) Eos % (Auto) Baso % (Auto) Neut # (Auto) Lymph # (Auto) [place] # (Auto) Eos # (Auto) Baso # (Auto) APTT Puncture Site L brac pCO2 35 pO2 79 L HCO3 28.0 ABG pH 7.50 H ABG Total CO2 28.4 H ABG O2 Saturation 98.2 H ABG Base Excess 4.0 H ABG Hemoglobin 9.8 L ABG Carboxyhemoglobin 1.7 H POC ABG HHb (Measured) 1.8 ABG Methemoglobin 1.0 [place]ev[place] Test Na A-a O2 Difference 234.0 Respiratory Index 3.0 Hgb O2 Saturation 95.5 Vent Mode Prvc Mechanical Rate 10 FiO2 50.0 Tidal Volume 440 PEEP 5 Sodium Potassium Chloride Carbon Dioxide Anion Gap BUN Creatinine Est GFR ( Amer) Est GFR (Non-Af Amer) POC Glucose (mg/dL) 113 H 123 H Random Glucose Calcium Phosphorus Magnesium Total Bilirubin AST ALT Alkaline Phosphatase Total Protein Albumin Globulin Albumin/Globulin Ratio 07/26/18 07/26/18 07/26/18 06:34 06:34 06:35 WBC 7.9 RBC 3.19 L Hgb 9.4 L Hct 28.1 L MCV 88.0 MCH 29.6 MCHC 33.6 RDW 15.2 H Plt Count 250 MPV 9.0 Neut % (Auto) 62.8 Lymph % (Auto) 23.7 [place] % (Auto) 9.7 Eos % (Auto) 3.2 Baso % (Auto) 0.6 Neut # (Auto) 4.9 Lymph # (Auto) 1.9 [place] # (Auto) 0.8 Eos # (Auto) 0.3 Baso # (Auto) 0.0 APTT 51 H Puncture Site pCO2 pO2 HCO3 ABG pH ABG Total CO2 ABG O2 Saturation ABG Base Excess ABG Hemoglobin ABG Carboxyhemoglobin POC ABG HHb (Measured) ABG Methemoglobin Kevon Test A-a O2 Difference Respiratory Index Hgb O2 Saturation Vent Mode Mechanical Rate FiO2 Tidal Volume PEEP Sodium 141 Potassium 3.8 Chloride 104 Carbon Dioxide 30 Anion Gap 11 BUN 23 H Creatinine 1.1 Est GFR ( Amer) > 60 Est GFR (Non-Af Amer) 52 POC Glucose (mg/dL) Random Glucose 106 H Calcium 8.2 L Phosphorus 3.2 Magnesium 2.6 H Total Bilirubin 0.7 AST 35 ALT 34 Alkaline Phosphatase 259 H Total Protein 6.3 Albumin 2.7 L Globulin 3.6 Albumin/Globulin Ratio 0.8 L 07/26/18 07/26/18 07/26/18 10:43 14:01 17:41 WBC RBC Hgb Hct MCV MCH MCHC RDW Plt Count MPV Neut % (Auto) Lymph % (Auto) [place] % (Auto) Eos % (Auto) Baso % (Auto) Neut # (Auto) Lymph # (Auto) [place] # (Auto) Eos # (Auto) Baso # (Auto) APTT Puncture Site pCO2 pO2 HCO3 ABG pH ABG Total CO2 ABG O2 Saturation ABG Base Excess ABG Hemoglobin ABG Carboxyhemoglobin POC ABG HHb (Measured) ABG Methemoglobin Kevon Test A-a O2 Difference Respiratory Index Hgb O2 Saturation Vent Mode Mechanical Rate FiO2 Tidal Volume PEEP Sodium Potassium Chloride Carbon Dioxide Anion Gap BUN Creatinine Est GFR ( Amer) Est GFR (Non-Af Amer) POC Glucose (mg/dL) 127 H 127 H 116 H Random Glucose Calcium Phosphorus Magnesium Total Bilirubin AST ALT Alkaline Phosphatase Total Protein Albumin Globulin Albumin/Globulin Ratio EKG/Cardiology Studies: Cardiology / EKG Studies 07/26/18 08:26 EKG [ELECTROCARDIOGRAM] Stat Comment: Mode Of Transportation: Reason For Exam: long QT on prior EKG Critical Care Progress Note - Nutrition Nutrition: Nutrition Category Date Time Status NPO Diet [DIET] Diets 07/25/18 Breakfast Active Attending/Attestation - Attestation I have personally seen and examined this patient.: Yes I have fully participated in the care of the patient.: Yes I have reviewed all pertinent clinical information: Yes Notes (Text): 07/26/18 18:51 patient seen and examined in the intensive care unit. Status post PEG placement today Sedated Repeat CAT scan showed congestive changes and pleural effusion Started on Levophed for hypotension Continue ventilatory support Continue anticoagulation group account director consult for vaginal bleeding Monitor H&H Case discussed with family at length
[2018-07-26 19:26] LABS: FSH 1.7 mIU/mL; PROLACTIN 18.5 ng/mL (3.0-18.9)
[2018-07-26] MEDS: Rosuvastatin Calcium 2.5 mg Tab PO SCH (21:33)
[2018-07-26] MEDS ORDERED: Enoxaparin 60 mg Syringe SC SCH (22:00)
[2018-07-27] MEDS: (Novolog) Insulin Aspart, Recombinant 100 u/ml 10 ml vial SC SCH ×4 (00:36→17:41)
[2018-07-27] MEDS: Albuterol-Ipratrop 3 mg / 0.5 (3 ml) UD INH SCH ×4 (01:08→19:13)
[2018-07-27] MEDS: Meropenem 1 GM in Sodium Chloride 0.9% 100 ML IVPB SCH (03:29)
[2018-07-27 04:19] LABS: ABG ALLEN TEST POS; ARTERIAL BLOOD GAS HCO3 26.1 mmol/L (21-28); ARTERIAL BLOOD GAS HEMOGLOBIN 9.3 g/dL (11.7-17.4); ARTERIAL BLOOD GAS O2 SAT 99.3 % (95-98); ARTERIAL BLOOD GAS PCO2 39 mm/Hg (35-45); ARTERIAL BLOOD GAS PH 7.43 (7.35-7.45); ARTERIAL BLOOD GAS PO2 145 mm/Hg (80-100); ARTERIAL BLOOD GAS TCO2 27.1 mmol/L (22-28)
[2018-07-27 06:59] LABS: BASO # 0.1 K/uL (0.0-0.2); EOS # 0.2 K/uL (0.0-0.7); HEMOGLOBIN 8.8 g/dL (11.0-16.0); LYMPH # 1.4 K/uL (1.0-4.3); LYMPH % 24.1 % (20.0-40.0); MEAN CELL VOLUME 87.7 fL (81.0-99.0); MEAN CORPUSCULAR HEMOGLOBIN 29.9 pg (27.0-31.0); MEAN CORPUSCULAR HGB CONC 34.1 g/dL (33.0-37.0); MEAN PLATELET VOLUME 8.8 fL (7.2-11.7); MONO # 0.6 K/uL (0.0-0.8); MONO % 10.1 % (0.0-10.0); NEUT # 3.5 K/uL (1.8-7.0); NEUT % 60.8 % (50.0-75.0); NRBC % 0.1 % (0.0-2.0); RBC 2.93 Mil/uL (3.80-5.20); RED CELL DISTRIBUTION WIDTH 14.7 % (11.5-14.5); WHITE BLOOD COUNT 5.8 K/uL (4.8-10.8)
[2018-07-27 07:07] LABS: ALB/GLOB RATIO 0.8 (1.0-2.1); ALBUMIN 2.6 g/dL (3.5-5.0); ALT/SGPT 29 U/L (9-52); AST/SGOT 19 U/L (14-36); BLOOD UREA NITROGEN 17 mg/dL (7-17); CALCIUM 8.2 mg/dl (8.6-10.4); GFR NON-AFRICAN AMERICAN 52
--- NOTE | 2018-07-27 07:08 | CP.PCM.PN ---
<[place] Amaya - Last Filed: 07/27/18 14:48> Subjective - Date & Time of Evaluation Date of Evaluation: 07/27/18 Time of Evaluation: 07:06 - Subjective Subjective: PGY6 GI Fellow Progress Note Patient seen and examined bedside this morning. Patient is somewhat restless this morning, does not make eye contact or answer any questions. Now on pressors. 12 system ROS cannot be completed given clinical condition Objective - Vital Signs/Intake and Output Vital Signs (last 24 hours): Temp Pulse Resp BP Pulse Ox 97.6 F 120 H 12 129/77 100 07/27/18 03:00 07/27/18 06:01 07/27/18 06:01 07/27/18 06:01 07/27/18 05:00 Intake and Output: 07/27/18 07/27/18 06:59 18:59 Intake Total 914.6 Output Total 540 Balance 374.6 - Medications Medications: Current Medications Acetaminophen (Tylenol 325mg Tab) 650 mg PO Q6 PRN PRN Reason: Fever >100.4 F Last Admin: 07/19/18 21:04 Dose: 650 mg Albuterol/Ipratropium (Duoneb 3 Mg/0.5 Mg (3 Ml) Ud) 3 ml INH RQ6 [facility] Last Admin: 07/27/18 01:08 Dose: 3 ml Ascorbic Acid (Vitamin C 500 Mg Tab) 1,000 mg NG DAILY [facility] Last Admin: 07/26/18 13:31 Dose: 1,000 mg Aspirin (Aspirin Chewable) 81 mg GT DAILY [facility] Last Admin: 07/26/18 13:30 Dose: 81 mg Ergocalciferol (Drisdol 50,000 Intl Units Cap) 1 cap PO Q7D [facility] Last Admin: 07/25/18 14:15 Dose: 1 cap Furosemide (Lasix) 20 mg IVP BID [facility] Last Admin: 07/26/18 17:35 Dose: Not Given Meropenem 1 gm/ Sodium (Chloride) 100 mls @ 100 mls/hr IVPB Q8H [facility]; Protocol Last Admin: 07/27/18 03:29 Dose: 100 mls/hr Heparin Sodium/Sodium Chloride (Heparin 89176 Units/250ml 1/2 Normal Saline) 25,000 units in 250 mls @ 6.804 mls/hr IV .Q24H PRN; Protocol PRN Reason: PROTOCOL Last Admin: 07/26/18 16:02 Dose: 6.804 mls/hr Dextrose (Dextrose 10% In Water) 1,000 mls @ 30 mls/hr IV .Q24H [facility] Last Admin: 07/26/18 08:47 Dose: 30 mls/hr Norepinephrine Bitartrate 4 mg (/ Sodium Chloride) 254 mls @ 19.05 mls/hr IV .[id number] PRN; Protocol PRN Reason: TITRATE PER MD ORDER Last Titration: 07/26/18 19:35 Dose: 4 mcg/min, 15.24 mls/hr Insulin Aspart (Novolog) 0 unit SC Q6 [facility]; Protocol Last Admin: 07/27/18 06:35 Dose: 2 units Insulin Glargine (Lantus) 20 unit SC Q12 [facility] Last Admin: 07/24/18 22:13 Dose: 20 u Lactobacillus Acidophilus (Bacid Acidophilus) 1 cap PO Q12H [facility] Last Admin: 07/26/18 21:50 Dose: 1 cap Methimazole (Tapazole) 10 mg PO TID [facility] Last Admin: 07/26/18 17:37 Dose: 10 mg Multivitamins/Vitamin C (Multi-Delyn Liquid) 5 ml PO DAILY [facility] Last Admin: 07/26/18 13:32 Dose: 5 ml Pantoprazole Sodium (Protonix Susp) 40 mg PO DAILY [facility] Last Admin: 07/26/18 13:31 Dose: 40 mg Rosuvastatin Calcium (Crestor) 2.5 mg PO HS [facility] Last Admin: 07/26/18 21:33 Dose: 2.5 mg - Labs Labs: 07/26/18 06:34 07/26/18 06:35 PT 14.3 SECONDS (9.7-12.2) H 07/23/18 10:26 INR 1.3 07/23/18 10:26 APTT 59 SECONDS (21-34) H D 07/26/18 22:00 - Constitutional Appears: Confused, Chronically Ill - Eye Exam Eye Exam: PERRL - ENT Exam ENT Exam: Mucous Membranes Moist - Respiratory Exam Respiratory Exam: Rales. absent: Clear to Ausculation Bilateral, Rhonchi, Wheezes - Cardiovascular Exam Cardiovascular Exam: RRR, +S1, +S2 - GI/Abdominal Exam GI & Abdominal Exam: Soft, Normal Bowel Sounds. absent: Distended, Firm, Guarding, Rigid, Tenderness, Organomegaly Additional comments: PEG site intact - Extremities Exam Extremities Exam: Normal Inspection. absent: Pedal Edema - Neurological Exam Neurological Exam: Altered - Skin Skin Exam: Dry, Warm Assessment and Plan - Assessment and Plan (Free Text) Assessment: Patient is a 52yo Noelle-speaking female with PMHx significant for diabetes, hyperthyroidism who presented to the ED with complaints of productive cough and generalized malaise for 2-3 weeks. Patient has since suffered cardiac arrest, anoxic brain injury and respiratory failure requiring tracheostomy -VTach cardiac arrest s/p resuscitation -Anoxic brain injury -Respiratory failure requiring mechanical ventilation -LV thrombus -Systolic CHF -Dysphagia as a result of above Plan: -S/P successful PEG placement yesterday -OK to initiate tube feeds for at noon today -No evidence of bleeding at PEG site -Continued on antibiotic coverage -Heparin gtt was resumed yesterday given LV thrombus <Hai Murray - Last Filed: 07/27/18 15:38> Objective - Vital Signs/Intake and Output Vital Signs (last 24 hours): Temp Pulse Resp BP Pulse Ox 98.2 F 108 H 17 120/80 96 07/27/18 07:00 07/27/18 15:03 07/27/18 15:03 07/27/18 15:03 07/27/18 15:03 Intake and Output: 07/27/18 07/27/18 06:59 18:59 Intake Total 914.6 427.6 Output Total 540 675 Balance 374.6 -247.4 - Medications Medications: Current Medications Acetaminophen (Tylenol 325mg Tab) 650 mg PO Q6 PRN PRN Reason: Fever >100.4 F Last Admin: 07/19/18 21:04 Dose: 650 mg Albuterol/Ipratropium (Duoneb 3 Mg/0.5 Mg (3 Ml) Ud) 3 ml INH RQ6 [facility] Last Admin: 07/27/18 13:24 Dose: 3 ml Ascorbic Acid (Vitamin C 500 Mg Tab) 1,000 mg NG DAILY [facility] Last Admin: 07/27/18 09:05 Dose: 1,000 mg Aspirin (Aspirin Chewable) 81 mg GT DAILY [facility] Last Admin: 07/27/18 09:04 Dose: 81 mg Ergocalciferol (Drisdol 50,000 Intl Units Cap) 1 cap PO Q7D [facility] Last Admin: 07/25/18 14:15 Dose: 1 cap Furosemide (Lasix) 20 mg IVP BID [facility] Last Admin: 07/27/18 09:03 Dose: 20 mg Heparin Sodium/Sodium Chloride (Heparin 79465 Units/250ml 1/2 Normal Saline) 25,000 units in 250 mls @ 6.804 mls/hr IV .Q24H PRN; Protocol PRN Reason: PROTOCOL Last Admin: 07/26/18 16:02 Dose: 6.804 mls/hr Dextrose (Dextrose 10% In Water) 1,000 mls @ 30 mls/hr IV .Q24H [facility] Last Admin: 07/26/18 08:47 Dose: 30 mls/hr Norepinephrine Bitartrate 4 mg (/ Sodium Chloride) 254 mls @ 19.05 mls/hr IV .[id number] PRN; Protocol PRN Reason: TITRATE PER MD ORDER Last Titration: 07/26/18 19:35 Dose: 4 mcg/min, 15.24 mls/hr Insulin Aspart (Novolog) 0 unit SC Q6 [facility]; Protocol Last Admin: 07/27/18 12:00 Dose: Not Given Insulin Glargine (Lantus) 20 unit SC Q12 [facility] Last Admin: 07/24/18 22:13 Dose: 20 u Lactobacillus Acidophilus (Bacid Acidophilus) 1 cap PO Q12H [facility] Last Admin: 07/27/18 09:03 Dose: 1 cap Methimazole (Tapazole) 20 mg PO Q8 [facility] Morphine Sulfate (Morphine) 2 mg IV Q4H PRN PRN Reason: Pain, moderate (4-7) Last Admin: 07/27/18 13:21 Dose: 2 mg Multivitamins/Vitamin C (Multi-Delyn Liquid) 5 ml PO DAILY [facility] Last Admin: 07/27/18 09:06 Dose: 5 ml Pantoprazole Sodium (Protonix Susp) 40 mg PO DAILY [facility] Last Admin: 07/27/18 09:05 Dose: 40 mg Propranolol HCl (Inderal) 5 mg PO TID [facility] Last Admin: 07/27/18 09:03 Dose: 5 mg Rosuvastatin Calcium (Crestor) 2.5 mg PO HS [facility] Last Admin: 07/26/18 21:33 Dose: 2.5 mg - Labs Labs: 07/27/18 06:35 07/27/18 06:35 PT 14.3 SECONDS (9.7-12.2) H 07/23/18 10:26 INR 1.3 07/23/18 10: APTT 55 SECONDS (21-34) H 07/27/18 06:35 Attending/Attestation - Attestation I have personally seen and examined this patient.: Yes I have fully participated in the care of the patient.: Yes I have reviewed all pertinent clinical information, including history, physical exam and plan: Yes Notes (Text): 07/27/18 15:36 I have seen and examined patient with GI fellow. No acute events overnight, patient appears increasingly agitated today, though was able to tolerate small sips of PO liquid today. No reported abdominal pain, nausea, vomiting. DM Hyperthyroidism Cardiac arrest, respiratory failure s/p tracheostomy Dysphagia s/p PEG - PEG site examined, appears clean/dry - May use tube immediately for feeds, medication, water. Flush PEG with 30 cc water q 8 hours. - No further planned GI intervention, will sign off case. Please reconsult as necessary, thank you.
[2018-07-27] MEDS: Lactobacillus Acidophilus 500 MU Cap PO SCH ×2 (09:03→20:16)
[2018-07-27] MEDS: Propranolol 5 mg Tab PO SCH ×3 (09:03→17:16)
[2018-07-27] MEDS: Pantoprazole 40 mg Susp UD PO SCH (09:05)
[2018-07-27] MEDS: Multiple Vitamins Oral Solution PO SCH (09:06)
--- NOTE | 2018-07-27 09:31 | US ---
Date of service: 07/26/2018 HISTORY: irregular vaginal bleeding COMPARISON: None available. TECHNIQUE: Transabdominal and transvaginal FINDINGS: Technically limited examination. Patient unable to cooperate for the examination. UTERUS: Measures 6.4 x 5.0 x 4.7 cm. Heterogeneous echotexture. No discrete mass. ENDOMETRIUM: Measures 16 mm in diameter. Heterogeneous. No endometrial fluid. CERVIX: No cervical abnormality identified. RIGHT OVARY: Not visualized LEFT OVARY: Not visualized FREE FLUID: No significant free fluid noted. OTHER FINDINGS: None. IMPRESSION: Technically limited examination. Thick heterogeneous endometrium. Please note that the patient is menstrual status is not known at this time. If this patient is postmenopausal, then this is grossly abnormal and should be concerning for endometrial neoplasm. Please correlate with history. The preliminary findings for this examination were reported by [facility] at 7:30 p.m. on 07/26/2018. There is concurrence of this report with the preliminary findings.
--- NOTE | 2018-07-27 11:12 | CP.CCUPN ---
<Brayan Gonzalez - Last Filed: 07/27/18 11:08> CCU Subjective - Physician Review Events Since Last Encounter (Free Text): 07/27/18 11:13 No acute issues. Subjective (Free Text): 07/27/18 11:08 PGY1 Critical Care Progress Note for Dr. Oshea Patient seen at bedside this morning. Patient is off sedation and is responsive to name and able to follow 1-step commands. Patient is currently with PEG and Tracheostomy. No bleeding. No acute issues. 07/27/18 11:13 Critical Care Time Spent (in minutes): 35 CCU Objective - Vital Signs / Intake & Output Vital Signs (Last 4 hours): Vital Signs Pulse Resp BP Pulse Ox 07/27/18 10:00 111 H 14 07/27/18 09:54 115 H 11 L 121/62 96 07/27/18 09:04 139 H 15 134/79 99 07/27/18 09:03 134/79 07/27/18 09:00 140 H 18 98 07/27/18 08:02 123 H 26 H 135/106 H 100 07/27/18 08:00 120 H 17 100 07/27/18 07:25 133 H 17 128/74 100 Intake and Output (Last 8hrs): Intake & Output 07/26/18 07/27/18 07/27/18 22:59 06:59 14:59 Intake Total 578.6 514.4 51.8 Output Total 200 510 0 Balance 378.6 4.4 51.8 Weight 104 lb 14.4 oz Intake: IV 89 Intake, IV Amount 389.6 414.4 51.8 Left Antecubital 47.6 54.4 6.8 Right Distal Port 102 120 15 Subclavian Right Proximal Port 240 240 30 Subclavian Tube Feeding 100 100 Output: Urine 150 450 0 Urethral ([place]) 150 450 0 Stool 50 60 0 - Physical Exam Head: Positive for: Atraumatic, Normocephalic Pupils: Positive for: PERRL. Negative for: Sluggish, Pinpoint Extroacular Muscles: Positive for: EOMI. Negative for: Gaze Palsy Conjunctiva: Positive for: Normal. Negative for: Injected, Icteric Mouth: Positive for: Moist Mucous Membranes Nose (External): Positive for: Atraumatic. Negative for: Abrasion, Contusion, Laceration Nose (Internal): Positive for: No Active Bleeding. Negative for: Epistaxis Neck: Positive for: Normal Range of Motion, Trachea Midline. Negative for: JVD Respiratory/Chest: Positive for: Good Air Exchange, Rhonchi (mild ronchi in bilateral bases), Other (intubated and ventilated). Negative for: Wheezes, Rales Cardiovascular: Positive for: Normal S1, S2, Peripheal Pulses Present, Tachycardic. Negative for: Regular Rate and Rhythm Abdomen: Positive for: Normal Bowel Sounds. Negative for: Tenderness, Distention, Rebound, Guarding Upper Extremity: Positive for: Normal Inspection, NORMAL PULSES. Negative for: Cyanosis, Edema Lower Extremity: Positive for: Normal Inspection. Negative for: Edema, CALF TENDERNESS Neurological: Positive for: Other (weaning from sedation, intermittently opens eyes and tracks staff across room, but minimal spontaneous movements, not following verbal or pantomimed commands) Skin: Positive for: Warm, Dry, Normal Color Psychiatric: Positive for: Alert - Medications Active Medications: Active Medications Generic Name Dose Route Start Last Admin Trade Name Freq PRN Reason Stop Dose Admin Acetaminophen 650 mg 07/12/18 15:57 07/19/18 21:04 Tylenol 325mg Tab PO 650 mg Q6 PRN Administration Fever >100.4 F Albuterol/Ipratropium 3 ml 07/14/18 20:00 07/27/18 01:08 Duoneb 3 Mg/0.5 Mg (3 Ml) Ud INH 3 ml RQ6 MANOLO Administration Ascorbic Acid 1,000 mg 07/24/18 10:00 07/27/18 09:05 Vitamin C 500 Mg Tab NG 1,000 mg DAILY MANOLO Administration Aspirin 81 mg 07/17/18 10:00 07/27/18 09:04 Aspirin Chewable GT 81 mg DAILY MANOLO Administration Ergocalciferol 1 cap 07/11/18 12:45 07/25/18 14:15 Drisdol 50,000 Intl Units Cap PO 1 cap Q7D MANOLO Administration Furosemide 20 mg 07/17/18 18:00 07/27/18 09:03 Lasix IVP 20 mg BID MANOLO Administration Heparin Sodium/Sodium Chloride 25,000 units in 250 mls @ 6.804 mls/hr 07/21/18 10:19 07/26/18 16:02 Heparin 95329 Units/250ml 1/2 Normal Saline IV 6.804 mls/hr .Q24H PRN Administration PROTOCOL Protocol 12 UNITS/KG/HR Dextrose 1,000 mls @ 30 mls/hr 07/24/18 08:00 07/26/18 08:47 Dextrose 10% In Water IV 30 mls/hr .Q24H MANOLO Administration Norepinephrine Bitartrate 4 mg 254 mls @ 19.05 mls/hr 07/26/18 17:57 07/26/18 19:35 / Sodium Chloride IV 4 mcg/min .[id number] PRN 15.24 mls/hr TITRATE PER MD ORDER Titration Protocol 5 MCG/MIN Potassium Chloride 20 meq in 100 mls @ 50 mls/hr 07/27/18 10:00 07/27/18 09:00 Potassium Chloride 20 Meq/100 Ml IVPB 07/27/18 13:59 50 mls/hr Q2 MANOLO Administration Insulin Aspart 0 unit 07/11/18 08:28 07/27/18 06:35 Novolog SC 2 units Q6 MANOLO Administration Protocol Insulin Glargine 20 unit 07/17/18 09:46 07/24/18 22:13 Lantus SC 20 u Q12 MANOLO Administration Lactobacillus Acidophilus 1 cap 07/08/18 20:00 07/27/18 09:03 Bacid Acidophilus PO 1 cap Q12H MANOLO Administration Methimazole 20 mg 07/27/18 14:00 Tapazole PO Q8 MANOLO Morphine Sulfate 2 mg 07/27/18 09:48 Morphine IV Q4H PRN Pain, moderate (4-7) Multivitamins/Vitamin C 5 ml 07/24/18 10:00 07/27/18 09:06 Multi-Delyn Liquid PO 5 ml DAILY MANOLO Administration Pantoprazole Sodium 40 mg 07/20/18 10:00 07/27/18 09:05 Protonix Susp PO 40 mg DAILY MANOLO Administration Propranolol HCl 5 mg 07/27/18 10:00 07/27/18 09:03 Inderal PO 5 mg TID MANOLO Administration Rosuvastatin Calcium 2.5 mg 07/13/18 22:00 07/26/18 21:33 Crestor PO 2.5 mg HS MANOLO Administration - Patient Studies Lab Studies: Lab Studies 07/27/18 07/27/18 07/27/18 Range/Units 06:35 06:35 06:35 WBC 5.8 (4.8-10.8) K/uL RBC 2.93 L (3.80-5.20) Mil/uL Hgb 8.8 L (11.0-16.0) g/dL Hct 25.7 L (34.0-47.0) % MCV 87.7 (81.0-99.0) fL MCH 29.9 (27.0-31.0) pg MCHC 34.1 (33.0-37.0) g/dL RDW 14.7 H (11.5-14.5) % Plt Count 240 (130-400) K/uL MPV 8.8 (7.2-11.7) fL Neut % (Auto) 60.8 (50.0-75.0) % Lymph % (Auto) 24.1 (20.0-40.0) % [place] % (Auto) 10.1 H (0.0-10.0) % Eos % (Auto) 4.0 (0.0-4.0) % Baso % (Auto) 1.0 (0.0-2.0) % Neut # (Auto) 3.5 (1.8-7.0) K/uL Lymph # (Auto) 1.4 (1.0-4.3) K/uL [place] # (Auto) 0.6 (0.0-0.8) K/uL Eos # (Auto) 0.2 (0.0-0.7) K/uL Baso # (Auto) 0.1 (0.0-0.2) K/uL APTT 55 H (21-34) SECONDS Puncture Site pCO2 (35-45) mm/Hg pO2 (80-100) mm/Hg HCO3 (21-28) mmol/L ABG pH (7.35-7.45) ABG Total CO2 (22-28) mmol/L ABG O2 Saturation (95-98) % ABG Base Excess (-2.0-3.0) mmol/L ABG Hemoglobin (11.7-17.4) g/dL ABG Carboxyhemoglobin (0.5-1.5) % POC ABG HHb (Measured) (0.0-5.0) % ABG Methemoglobin (0.0-3.0) % [place] Test A-a O2 Difference mm/Hg Respiratory Index Hgb O2 Saturation (95.0-98.0) % Vent Mode Mechanical Rate FiO2 % Tidal Volume PEEP Sodium 139 (132-148) mmol/L Potassium 3.4 L (3.6-5.2) mmol/L Chloride 106 (98-107) mmol/L Carbon Dioxide 27 (22-30) mmol/L Anion Gap 10 (10-20) BUN 17 (7-17) mg/dL Creatinine 1.1 (0.7-1.2) mg/dL Est GFR ( Amer) > 60 Est GFR (Non-Af Amer) 52 POC Glucose (mg/dL) (65-110) mg/dL Random Glucose 171 H (65-105) mg/dL Calcium 8.2 L (8.6-10.4) mg/dl Phosphorus 3.5 (2.5-4.5) mg/dL Magnesium 2.5 H (1.6-2.3) mg/dL Total Bilirubin 0.7 (0.2-1.3) mg/dL AST 19 (14-36) U/L ALT 29 (9-52) U/L Alkaline Phosphatase 210 H (38-126) U/L Total Protein 5.9 L (6.3-8.3) g/dL Albumin 2.6 L (3.5-5.0) g/dL Globulin 3.3 (2.2-3.9) gm/dL Albumin/Globulin Ratio 0.8 L (1.0-2.1) FSH 3rd Generation mIU/mL Luteinizing Hormone mIU/mL Prolactin (3.0-18.9) ng/mL 07/27/18 07/27/18 07/27/18 Range/Units 06:02 04:15 00:14 WBC (4.8-10.8) K/uL RBC (3.80-5.20) Mil/uL Hgb (11.0-16.0) g/dL Hct (34.0-47.0) % MCV (81.0-99.0) fL MCH (27.0-31.0) pg MCHC (33.0-37.0) g/dL RDW (11.5-14.5) % Plt Count (130-400) K/uL MPV (7.2-11.7) fL Neut % (Auto) (50.0-75.0) % Lymph % (Auto) (20.0-40.0) % [place] % (Auto) (0.0-10.0) % Eos % (Auto) (0.0-4.0) % Baso % (Auto) (0.0-2.0) % Neut # (Auto) (1.8-7.0) K/uL Lymph # (Auto) (1.0-4.3) K/uL [place] # (Auto) (0.0-0.8) K/uL Eos # (Auto) (0.0-0.7) K/uL Baso # (Auto) (0.0-0.2) K/uL APTT (21-34) SECONDS Puncture Site Rr pCO2 39 (35-45) mm/Hg pO2 145 H (80-100) mm/Hg HCO3 26.1 (21-28) mmol/L ABG pH 7.43 (7.35-7.45) ABG Total CO2 27.1 (22-28) mmol/L ABG O2 Saturation 99.3 H (95-98) % ABG Base Excess 1.5 (-2.0-3.0) mmol/L ABG Hemoglobin 9.3 L (11.7-17.4) g/dL ABG Carboxyhemoglobin 1.8 H (0.5-1.5) % POC ABG HHb (Measured) 0.7 (0.0-5.0) % ABG Methemoglobin 0.6 (0.0-3.0) % [place] Test Pos A-a O2 Difference 163.0 mm/Hg Respiratory Index 1.1 Hgb O2 Saturation 96.9 (95.0-98.0) % Vent Mode Prvc Mechanical Rate 10 FiO2 50.0 % Tidal Volume 400 PEEP 5 Sodium (132-148) mmol/L Potassium (3.6-5.2) mmol/L Chloride (98-107) mmol/L Carbon Dioxide (22-30) mmol/L Anion Gap (10-20) BUN (7-17) mg/dL Creatinine (0.7-1.2) mg/dL Est GFR ( Amer) Est GFR (Non-Af Amer) POC Glucose (mg/dL) 184 H 162 H (65-110) mg/dL Random Glucose (65-105) mg/dL Calcium (8.6-10.4) mg/dl Phosphorus (2.5-4.5) mg/dL Magnesium (1.6-2.3) mg/dL Total Bilirubin (0.2-1.3) mg/dL AST (14-36) U/L ALT (9-52) U/L Alkaline Phosphatase (38-126) U/L Total Protein (6.3-8.3) g/dL Albumin (3.5-5.0) g/dL Globulin (2.2-3.9) gm/dL Albumin/Globulin Ratio (1.0-2.1) FSH 3rd Generation mIU/mL Luteinizing Hormone mIU/mL Prolactin (3.0-18.9) ng/mL 07/26/18 07/26/18 07/26/18 Range/Units 22:00 18:26 17:41 WBC (4.8-10.8) K/uL RBC (3.80-5.20) Mil/uL Hgb (11.0-16.0) g/dL Hct (34.0-47.0) % MCV (81.0-99.0) fL MCH (27.0-31.0) pg MCHC (33.0-37.0) g/dL RDW (11.5-14.5) % Plt Count (130-400) K/uL MPV (7.2-11.7) fL Neut % (Auto) (50.0-75.0) % Lymph % (Auto) (20.0-40.0) % [place] % (Auto) (0.0-10.0) % Eos % (Auto) (0.0-4.0) % Baso % (Auto) (0.0-2.0) % Neut # (Auto) (1.8-7.0) K/uL Lymph # (Auto) (1.0-4.3) K/uL [place] # (Auto) (0.0-0.8) K/uL Eos # (Auto) (0.0-0.7) K/uL Baso # (Auto) (0.0-0.2) K/uL APTT 59 H D (21-34) SECONDS Puncture Site pCO2 (35-45) mm/Hg pO2 (80-100) mm/Hg HCO3 (21-28) mmol/L ABG pH (7.35-7.45) ABG Total CO2 (22-28) mmol/L ABG O2 Saturation (95-98) % ABG Base Excess (-2.0-3.0) mmol/L ABG Hemoglobin (11.7-17.4) g/dL ABG Carboxyhemoglobin (0.5-1.5) % POC ABG HHb (Measured) (0.0-5.0) % ABG Methemoglobin (0.0-3.0) % [place] Test A-a O2 Difference mm/Hg Respiratory Index Hgb O2 Saturation (95.0-98.0) % Vent Mode Mechanical Rate FiO2 % Tidal Volume PEEP Sodium (132-148) mmol/L Potassium (3.6-5.2) mmol/L Chloride (98-107) mmol/L Carbon Dioxide (22-30) mmol/L Anion Gap (10-20) BUN (7-17) mg/dL Creatinine (0.7-1.2) mg/dL Est GFR ( Amer) Est GFR (Non-Af Amer) POC Glucose (mg/dL) 116 H (65-110) mg/dL Random Glucose (65-105) mg/dL Calcium (8.6-10.4) mg/dl Phosphorus (2.5-4.5) mg/dL Magnesium (1.6-2.3) mg/dL Total Bilirubin (0.2-1.3) mg/dL AST (14-36) U/L ALT (9-52) U/L Alkaline Phosphatase (38-126) U/L Total Protein (6.3-8.3) g/dL Albumin (3.5-5.0) g/dL Globulin (2.2-3.9) gm/dL Albumin/Globulin Ratio (1.0-2.1) FSH 3rd Generation 1.7 mIU/mL Luteinizing Hormone < 0.2 mIU/mL Prolactin 18.5 (3.0-18.9) ng/mL 07/26/18 Range/Units 14:01 WBC (4.8-10.8) K/uL RBC (3.80-5.20) Mil/uL Hgb (11.0-16.0) g/dL Hct (34.0-47.0) % MCV (81.0-99.0) fL MCH (27.0-31.0) pg MCHC (33.0-37.0) g/dL RDW (11.5-14.5) % Plt Count (130-400) K/uL MPV (7.2-11.7) fL Neut % (Auto) (50.0-75.0) % Lymph % (Auto) (20.0-40.0) % [place] % (Auto) (0.0-10.0) % Eos % (Auto) (0.0-4.0) % Baso % (Auto) (0.0-2.0) % Neut # (Auto) (1.8-7.0) K/uL Lymph # (Auto) (1.0-4.3) K/uL [place] # (Auto) (0.0-0.8) K/uL Eos # (Auto) (0.0-0.7) K/uL Baso # (Auto) (0.0-0.2) K/uL APTT (21-34) SECONDS Puncture Site pCO2 (35-45) mm/Hg pO2 (80-100) mm/Hg HCO3 (21-28) mmol/L ABG pH (7.35-7.45) ABG Total CO2 (22-28) mmol/L ABG O2 Saturation (95-98) % ABG Base Excess (-2.0-3.0) mmol/L ABG Hemoglobin (11.7-17.4) g/dL ABG Carboxyhemoglobin (0.5-1.5) % POC ABG HHb (Measured) (0.0-5.0) % ABG Methemoglobin (0.0-3.0) % [place] Test A-a O2 Difference mm/Hg Respiratory Index Hgb O2 Saturation (95.0-98.0) % Vent Mode Mechanical Rate FiO2 % Tidal Volume PEEP Sodium (132-148) mmol/L Potassium (3.6-5.2) mmol/L Chloride (98-107) mmol/L Carbon Dioxide (22-30) mmol/L Anion Gap (10-20) BUN (7-17) mg/dL Creatinine (0.7-1.2) mg/dL Est GFR ( Amer) Est GFR (Non-Af Amer) POC Glucose (mg/dL) 127 H (65-110) mg/dL Random Glucose (65-105) mg/dL Calcium (8.6-10.4) mg/dl Phosphorus (2.5-4.5) mg/dL Magnesium (1.6-2.3) mg/dL Total Bilirubin (0.2-1.3) mg/dL AST (14-36) U/L ALT (9-52) U/L Alkaline Phosphatase (38-126) U/L Total Protein (6.3-8.3) g/dL Albumin (3.5-5.0) g/dL Globulin (2.2-3.9) gm/dL Albumin/Globulin Ratio (1.0-2.1) FSH 3rd Generation mIU/mL Luteinizing Hormone mIU/mL Prolactin (3.0-18.9) ng/mL Laboratory Results - last 24 hr 07/26/18 07/26/18 07/26/18 14:01 17:41 18:26 WBC RBC Hgb Hct MCV MCH MCHC RDW Plt Count MPV Neut % (Auto) Lymph % (Auto) [place] % (Auto) Eos % (Auto) Baso % (Auto) Neut # (Auto) Lymph # (Auto) [place] # (Auto) Eos # (Auto) Baso # (Auto) APTT Puncture Site pCO2 pO2 HCO3 ABG pH ABG Total CO2 ABG O2 Saturation ABG Base Excess ABG Hemoglobin ABG Carboxyhemoglobin POC ABG HHb (Measured) ABG Methemoglobin [place] Test A-a O2 Difference Respiratory Index Hgb O2 Saturation Vent Mode Mechanical Rate FiO2 Tidal Volume PEEP Sodium Potassium Chloride Carbon Dioxide Anion Gap BUN Creatinine Est GFR ( Amer) Est GFR (Non-Af Amer) POC Glucose (mg/dL) 127 H 116 H Random Glucose Calcium Phosphorus Magnesium Total Bilirubin AST ALT Alkaline Phosphatase Total Protein Albumin Globulin Albumin/Globulin Ratio FSH 3rd Generation 1.7 Luteinizing Hormone < 0.2 Prolactin 18.5 07/26/18 07/27/18 07/27/18 22:00 00:14 04:15 WBC RBC Hgb Hct MCV MCH MCHC RDW Plt Count MPV Neut % (Auto) Lymph % (Auto) [place] % (Auto) Eos % (Auto) Baso % (Auto) Neut # (Auto) Lymph # (Auto) [place] # (Auto) Eos # (Auto) Baso # (Auto) APTT 59 H D Puncture Site Rr pCO2 39 pO2 145 H HCO3 26.1 ABG pH 7.43 ABG Total CO2 27.1 ABG O2 Saturation 99.3 H ABG Base Excess 1.5 ABG Hemoglobin 9.3 L ABG Carboxyhemoglobin 1.8 H POC ABG HHb (Measured) 0.7 ABG Methemoglobin 0.6 [place] Test Pos A-a O2 Difference 163.0 Respiratory Index 1.1 Hgb O2 Saturation 96.9 Vent Mode Prvc Mechanical Rate 10 FiO2 50.0 Tidal Volume 400 PEEP 5 Sodium Potassium Chloride Carbon Dioxide Anion Gap BUN Creatinine Est GFR ( Amer) Est GFR (Non-Af Amer) POC Glucose (mg/dL) 162 H Random Glucose Calcium Phosphorus Magnesium Total Bilirubin AST ALT Alkaline Phosphatase Total Protein Albumin Globulin Albumin/Globulin Ratio FSH 3rd Generation Luteinizing Hormone Prolactin 07/27/18 07/27/18 07/27/18 06:02 06:35 06:35 WBC 5.8 RBC 2.93 L Hgb 8.8 L Hct 25.7 L MCV 87.7 MCH 29.9 MCHC 34.1 RDW 14.7 H Plt Count 240 MPV 8.8 Neut % (Auto) 60.8 Lymph % (Auto) 24.1 [place] % (Auto) 10.1 H Eos % (Auto) 4.0 Baso % (Auto) 1.0 Neut # (Auto) 3.5 Lymph # (Auto) 1.4 [place] # (Auto) 0.6 Eos # (Auto) 0.2 Baso # (Auto) 0.1 APTT Puncture Site pCO2 pO2 HCO3 ABG pH ABG Total CO2 ABG O2 Saturation ABG Base Excess ABG Hemoglobin ABG Carboxyhemoglobin POC ABG HHb (Measured) ABG Methemoglobin [place] Test A-a O2 Difference Respiratory Index Hgb O2 Saturation Vent Mode Mechanical Rate FiO2 Tidal Volume PEEP Sodium 139 Potassium 3.4 L Chloride 106 Carbon Dioxide 27 Anion Gap 10 BUN 17 Creatinine 1.1 Est GFR ( Amer) > 60 Est GFR (Non-Af Amer) 52 POC Glucose (mg/dL) 184 H Random Glucose 171 H Calcium 8.2 L Phosphorus 3.5 Magnesium 2.5 H Total Bilirubin 0.7 AST 19 ALT 29 Alkaline Phosphatase 210 H Total Protein 5.9 L Albumin 2.6 L Globulin 3.3 Albumin/Globulin Ratio 0.8 L FSH 3rd Generation Luteinizing Hormone Prolactin 07/27/18 06:35 WBC RBC Hgb Hct MCV MCH MCHC RDW Plt Count MPV Neut % (Auto) Lymph % (Auto) [place] % (Auto) Eos % (Auto) Baso % (Auto) Neut # (Auto) Lymph # (Auto) [place] # (Auto) Eos # (Auto) Baso # (Auto) APTT 55 H Puncture Site pCO2 pO2 HCO3 ABG pH ABG Total CO2 ABG O2 Saturation ABG Base Excess ABG Hemoglobin ABG Carboxyhemoglobin POC ABG HHb (Measured) ABG Methemoglobin [place]ev[place] Test A-a O2 Difference Respiratory Index Hgb O2 Saturation Vent Mode Mechanical Rate FiO2 Tidal Volume PEEP Sodium Potassium Chloride Carbon Dioxide Anion Gap BUN Creatinine Est GFR ( Amer) Est GFR (Non-Af Amer) POC Glucose (mg/dL) Random Glucose Calcium Phosphorus Magnesium Total Bilirubin AST ALT Alkaline Phosphatase Total Protein Albumin Globulin Albumin/Globulin Ratio FSH 3rd Generation Luteinizing Hormone Prolactin Fingerstick Blood Sugar Results: 184 Critical Care Progress Note - Nutrition Nutrition: Nutrition Category Date Time Status NPO Diet [DIET] Diets 07/25/18 Breakfast Active Assessment/Plan - Assessment and Plan (Free Text) Assessment: This is a 52 yo female with PMH of DM2 and hypercholesterolemia who presented to with cough, post-tussive emesis, and malaise x2-3 weeks. She was admitted to the ICU for respiratory failure and acute renal failure. Of note, patient was CODE BLUE on 07/10 (V-tach). Remains intubated after failing extubation, as patient vomited just hours after extubation. Currently with tracheostomy (performed by Dr. Melchor.) Patient is hemodynamically stable, and is status-post PEG placement with Dr. Murray and GI Fellow Dr. Amaya. Plan Neuro - Anoxic brain injury - Hemodynamically stable - Precedex discontinued Pulm - Hypoxic respiratory failure secondary to pulmonary congestion, renal failure - Goal SaO2 > 92% and paO2 > 55 - (Po2/FiO2)x100% = 290 * FiO2 at 50% (for goal PO2/FiO2 ratio > 300) * CT angiogram obtained 07/26 to rule out PE -- Negative for PE. - Duonebs 2 ml INH RQ4 - Continue cpap trials - Status-post tracheostomy 07/[address] Melchro - CXR official report (07/25): worsening infiltrates, satisfactory position of recently placed tracheostomy device, Satisfactory position of remaining support apparatus including venous access catheter and recently placed nasogastric tube CV - Blood pressure 82/42 --> 111/67 - Levophed discontinued 07/27 - Cardiac arrest from unknown etiology - Cardiology consulted. Appreciate recs. - Repeat ECHO from shows left ventricular thrombus; - Doppler show LLE DVT, right cephalic vein thrombus - Continue heparin drip until prior to thoracentesis. After thoracentesis will start Lovenox 47mg SC Q12 - Continue daily aspirin 81 mg, crestor 2.5 mg PO HS - Maintain MAP>70 - Discontinued propranolol 5mg PO TID MSK - OOB as tolerated with assistance - Early Mobilization highly recommended GI - Start: Vital 1.2 tube feeds - Protonix 40 mg IV daily - Dr. Murray Consulted: recommendations appreciated - Pelvic/ trasnvaginal ultrasound performed. Pending report - Patient's states patient still has regular menstrual cycles monthly - Monitor H/H Renal - Acute renal failure resolving - Avoid nephrotoxic drugs Heme: - Hgb=8.8 (down from 9.4 07/26) - No acute issues - Continue to monitor H/H Endo - ISS for coverage, q6h - Increased: Methimazole 10 mg PO TID --> Methimazole 20mg PO Q8 - FSH LH and Prolactin Pending Infectious Disease - Discontinued: Merrem 1 gm daily - Discontinued: vancomycin 1 gm daily - Negative cultures - ID following, appreciate all recs Dispo: Pending another PS/CPAP trial, tracheostomy placed 07/24 FEN: NPO, on Tube Feeds Access: Peripheral IVs, right subclavian TLC, ETT, OGT Consults: Palliative, Endo, Nephro, Cardio, Neuro, Cardio, GI Ppx: Protonix for GI, SCDs Code status: FULL Next of kin: Martina Isaacs () Patient seen, reviewed, and case discussed with attending, Dr. Neville Gonzalez PGY-1 <Merlin Oshea - Last Filed: 07/27/18 17:47> CCU Objective - Vital Signs / Intake & Output Vital Signs (Last 4 hours): Vital Signs Pulse Resp BP Pulse Ox 07/27/18 17:16 101/57 L 07/27/18 15:03 108 H 17 120/80 96 07/27/18 15:02 106 H 16 96 07/27/18 15:00 105 H 20 98 07/27/18 14:38 99 H 17 93/61 L 100 07/27/18 14:00 107 H 14 95 Intake and Output (Last 8hrs): Intake & Output 07/27/18 07/27/18 07/27/18 06:59 14:59 22:59 Intake Total 514.4 427.6 Output Total 510 675 Balance 4.4 -247.4 Weight 104 lb 14.4 oz Intake: Intake, IV Amount 414.4 427.6 Left Antecubital 54.4 47.6 Right Distal Port 120 30 Subclavian Right Proximal Port 240 350 Subclavian Tube Feeding 100 0 Output: Urine 450 675 Urethral ([place]) 450 675 Stool 60 0 Oral Regurgitation 0 - Medications Active Medications: Active Medications Generic Name Dose Route Start Last Admin Trade Name Freq PRN Reason Stop Dose Admin Albuterol/Ipratropium 3 ml 07/14/18 20:00 07/27/18 13:24 Duoneb 3 Mg/0.5 Mg (3 Ml) Ud INH 3 ml RQ6 MANOLO Administration Ascorbic Acid 1,000 mg 07/24/18 10:00 07/27/18 09:05 Vitamin C 500 Mg Tab NG 1,000 mg DAILY MANOLO Administration Aspirin 81 mg 07/17/18 10:00 07/27/18 09:04 Aspirin Chewable GT 81 mg DAILY MANOLO Administration Ergocalciferol 1 cap 07/11/18 12:45 07/25/18 14:15 Drisdol 50,000 Intl Units Cap PO 1 cap Q7D MANOLO Administration Furosemide 20 mg 07/17/18 18:00 07/27/18 17:16 Lasix IVP 20 mg BID MANOLO Administration Heparin Sodium/Sodium Chloride 25,000 units in 250 mls @ 6.804 mls/hr 07/21/18 10:19 07/26/18 16:02 Heparin 30276 Units/250ml 1/2 Normal Saline IV 6.804 mls/hr .Q24H PRN Administration PROTOCOL Protocol 12 UNITS/KG/HR Dextrose 1,000 mls @ 30 mls/hr 07/24/18 08:00 07/26/18 08:47 Dextrose 10% In Water IV 30 mls/hr .Q24H MANOLO Administration Norepinephrine Bitartrate 4 mg 254 mls @ 19.05 mls/hr 07/26/18 17:57 07/26/18 19:35 / Sodium Chloride IV 4 mcg/min .[id number] PRN 15.24 mls/hr TITRATE PER MD ORDER Titration Protocol 5 MCG/MIN Insulin Aspart 0 unit 07/11/18 08:28 07/27/18 17:41 Novolog SC 2 units Q6 MANOLO Administration Protocol Insulin Glargine 20 unit 07/17/18 09:46 07/24/18 22:13 Lantus SC 20 u Q12 MANOLO Administration Lactobacillus Acidophilus 1 cap 07/08/18 20:00 07/27/18 09:03 Bacid Acidophilus PO 1 cap Q12H MANOLO Administration Methimazole 20 mg 07/27/18 14:00 07/27/18 15:00 Tapazole PO 20 mg Q8 MANOLO Administration Morphine Sulfate 2 mg 07/27/18 09:48 07/27/18 17:33 Morphine IV 2 mg Q4H PRN Administration Pain, moderate (4-7) Multivitamins/Vitamin C 5 ml 07/24/18 10:00 07/27/18 09:06 Multi-Delyn Liquid PO 5 ml DAILY MANOLO Administration Pantoprazole Sodium 40 mg 07/20/18 10:00 07/27/18 09:05 Protonix Susp PO 40 mg DAILY MANOLO Administration Propranolol HCl 5 mg 07/27/18 10:00 07/27/18 17:16 Inderal PO 5 mg TID MANOLO Administration Rosuvastatin Calcium 2.5 mg 07/13/18 22:00 07/26/18 21:33 Crestor PO 2.5 mg HS MANOLO Administration - Patient Studies Lab Studies: Lab Studies 07/27/18 07/27/18 07/27/18 Range/Units 13:06 13:06 11:47 WBC (4.8-10.8) K/uL RBC (3.80-5.20) Mil/uL Hgb (11.0-16.0) g/dL Hct (34.0-47.0) % MCV (81.0-99.0) fL MCH (27.0-31.0) pg MCHC (33.0-37.0) g/dL RDW (11.5-14.5) % Plt Count (130-400) K/uL MPV (7.2-11.7) fL Neut % (Auto) (50.0-75.0) % Lymph % (Auto) (20.0-40.0) % [place] % (Auto) (0.0-10.0) % Eos % (Auto) (0.0-4.0) % Baso % (Auto) (0.0-2.0) % Neut # (Auto) (1.8-7.0) K/uL Lymph # (Auto) (1.0-4.3) K/uL [place] # (Auto) (0.0-0.8) K/uL Eos # (Auto) (0.0-0.7) K/uL Baso # (Auto) (0.0-0.2) K/uL APTT (21-34) SECONDS Puncture Site pCO2 (35-45) mm/Hg pO2 (80-100) mm/Hg HCO3 (21-28) mmol/L ABG pH (7.35-7.45) ABG Total CO2 (22-28) mmol/L ABG O2 Saturation (95-98) % ABG Base Excess (-2.0-3.0) mmol/L ABG Hemoglobin (11.7-17.4) g/dL ABG Carboxyhemoglobin (0.5-1.5) % POC ABG HHb (Measured) (0.0-5.0) % ABG Methemoglobin (0.0-3.0) % Kevon Test A-a O2 Difference mm/Hg Respiratory Index Hgb O2 Saturation (95.0-98.0) % Vent Mode Mechanical Rate FiO2 % Tidal Volume PEEP Sodium (132-148) mmol/L Potassium (3.6-5.2) mmol/L Chloride (98-107) mmol/L Carbon Dioxide (22-30) mmol/L Anion Gap (10-20) BUN (7-17) mg/dL Creatinine (0.7-1.2) mg/dL Est GFR ( Amer) Est GFR (Non-Af Amer) POC Glucose (mg/dL) 143 H (65-110) mg/dL Random Glucose (65-105) mg/dL Calcium (8.6-10.4) mg/dl Phosphorus (2.5-4.5) mg/dL Magnesium (1.6-2.3) mg/dL Total Bilirubin (0.2-1.3) mg/dL AST (14-36) U/L ALT (9-52) U/L Alkaline Phosphatase (38-126) U/L Total Protein (6.3-8.3) g/dL Albumin (3.5-5.0) g/dL Globulin (2.2-3.9) gm/dL Albumin/Globulin Ratio (1.0-2.1) Free T4 3.55 H (0.78-2.19) ng/dL Free T3 pg/mL 4.26 (2.77-5.27) pg/mL TSH 3rd Generation < 0.02 L (0.46-4.68) mIU/L FSH 3rd Generation mIU/mL Luteinizing Hormone mIU/mL Prolactin (3.0-18.9) ng/mL 07/27/18 07/27/18 07/27/18 Range/Units 06:35 06:35 06:35 WBC 5.8 (4.8-10.8) K/uL RBC 2.93 L (3.80-5.20) Mil/uL Hgb 8.8 L (11.0-16.0) g/dL Hct 25.7 L (34.0-47.0) % MCV 87.7 (81.0-99.0) fL MCH 29.9 (27.0-31.0) pg MCHC 34.1 (33.0-37.0) g/dL RDW 14.7 H (11.5-14.5) % Plt Count 240 (130-400) K/uL MPV 8.8 (7.2-11.7) fL Neut % (Auto) 60.8 (50.0-75.0) % Lymph % (Auto) 24.1 (20.0-40.0) % [place] % (Auto) 10.1 H (0.0-10.0) % Eos % (Auto) 4.0 (0.0-4.0) % Baso % (Auto) 1.0 (0.0-2.0) % Neut # (Auto) 3.5 (1.8-7.0) K/uL Lymph # (Auto) 1.4 (1.0-4.3) K/uL [place] # (Auto) 0.6 (0.0-0.8) K/uL Eos # (Auto) 0.2 (0.0-0.7) K/uL Baso # (Auto) 0.1 (0.0-0.2) K/uL APTT 55 H (21-34) SECONDS Puncture Site pCO2 (35-45) mm/Hg pO2 (80-100) mm/Hg HCO3 (21-28) mmol/L ABG pH (7.35-7.45) ABG Total CO2 (22-28) mmol/L ABG O2 Saturation (95-98) % ABG Base Excess (-2.0-3.0) mmol/L ABG Hemoglobin (11.7-17.4) g/dL ABG Carboxyhemoglobin (0.5-1.5) % POC ABG HHb (Measured) (0.0-5.0) % ABG Methemoglobin (0.0-3.0) % Kevon Test A-a O2 Difference mm/Hg Respiratory Index Hgb O2 Saturation (95.0-98.0) % Vent Mode Mechanical Rate FiO2 % Tidal Volume PEEP Sodium 139 (132-148) mmol/L Potassium 3.4 L (3.6-5.2) mmol/L Chloride 106 (98-107) mmol/L Carbon Dioxide 27 (22-30) mmol/L Anion Gap 10 (10-20) BUN 17 (7-17) mg/dL Creatinine 1.1 (0.7-1.2) mg/dL Est GFR ( Amer) > 60 Est GFR (Non-Af Amer) 52 POC Glucose (mg/dL) (65-110) mg/dL Random Glucose 171 H (65-105) mg/dL Calcium 8.2 L (8.6-10.4) mg/dl Phosphorus 3.5 (2.5-4.5) mg/dL Magnesium 2.5 H (1.6-2.3) mg/dL Total Bilirubin 0.7 (0.2-1.3) mg/dL AST 19 (14-36) U/L ALT 29 (9-52) U/L Alkaline Phosphatase 210 H (38-126) U/L Total Protein 5.9 L (6.3-8.3) g/dL Albumin 2.6 L (3.5-5.0) g/dL Globulin 3.3 (2.2-3.9) gm/dL Albumin/Globulin Ratio 0.8 L (1.0-2.1) Free T4 (0.78-2.19) ng/dL Free T3 pg/mL (2.77-5.27) pg/mL TSH 3rd Generation (0.46-4.68) mIU/L FSH 3rd Generation mIU/mL Luteinizing Hormone mIU/mL Prolactin (3.0-18.9) ng/mL 07/27/18 07/27/18 07/27/18 Range/Units 06:02 04:15 00:14 WBC (4.8-10.8) K/uL RBC (3.80-5.20) Mil/uL Hgb (11.0-16.0) g/dL Hct (34.0-47.0) % MCV (81.0-99.0) fL MCH (27.0-31.0) pg MCHC (33.0-37.0) g/dL RDW (11.5-14.5) % Plt Count (130-400) K/uL MPV (7.2-11.7) fL Neut % (Auto) (50.0-75.0) % Lymph % (Auto) (20.0-40.0) % [place] % (Auto) (0.0-10.0) % Eos % (Auto) (0.0-4.0) % Baso % (Auto) (0.0-2.0) % Neut # (Auto) (1.8-7.0) K/uL Lymph # (Auto) (1.0-4.3) K/uL [place] # (Auto) (0.0-0.8) K/uL Eos # (Auto) (0.0-0.7) K/uL Baso # (Auto) (0.0-0.2) K/uL APTT (21-34) SECONDS Puncture Site Rr pCO2 39 (35-45) mm/Hg pO2 145 H (80-100) mm/Hg HCO3 26.1 (21-28) mmol/L ABG pH 7.43 (7.35-7.45) ABG Total CO2 27.1 (22-28) mmol/L ABG O2 Saturation 99.3 H (95-98) % ABG Base Excess 1.5 (-2.0-3.0) mmol/L ABG Hemoglobin 9.3 L (11.7-17.4) g/dL ABG Carboxyhemoglobin 1.8 H (0.5-1.5) % POC ABG HHb (Measured) 0.7 (0.0-5.0) % ABG Methemoglobin 0.6 (0.0-3.0) % Kevon Test Pos A-a O2 Difference 163.0 mm/Hg Respiratory Index 1.1 Hgb O2 Saturation 96.9 (95.0-98.0) % Vent Mode Prvc Mechanical Rate 10 FiO2 50.0 % Tidal Volume 400 PEEP 5 Sodium (132-148) mmol/L Potassium (3.6-5.2) mmol/L Chloride (98-107) mmol/L Carbon Dioxide (22-30) mmol/L Anion Gap (10-20) BUN (7-17) mg/dL Creatinine (0.7-1.2) mg/dL Est GFR ( Amer) Est GFR (Non-Af Amer) POC Glucose (mg/dL) 184 H 162 H (65-110) mg/dL Random Glucose (65-105) mg/dL Calcium (8.6-10.4) mg/dl Phosphorus (2.5-4.5) mg/dL Magnesium (1.6-2.3) mg/dL Total Bilirubin (0.2-1.3) mg/dL AST (14-36) U/L ALT (9-52) U/L Alkaline Phosphatase (38-126) U/L Total Protein (6.3-8.3) g/dL Albumin (3.5-5.0) g/dL Globulin (2.2-3.9) gm/dL Albumin/Globulin Ratio (1.0-2.1) Free T4 (0.78-2.19) ng/dL Free T3 pg/mL (2.77-5.27) pg/mL TSH 3rd Generation (0.46-4.68) mIU/L FSH 3rd Generation mIU/mL Luteinizing Hormone mIU/mL Prolactin (3.0-18.9) ng/mL 07/26/18 07/26/18 07/26/18 Range/Units 22:00 18:26 17:41 WBC (4.8-10.8) K/uL RBC (3.80-5.20) Mil/uL Hgb (11.0-16.0) g/dL Hct (34.0-47.0) % MCV (81.0-99.0) fL MCH (27.0-31.0) pg MCHC (33.0-37.0) g/dL RDW (11.5-14.5) % Plt Count (130-400) K/uL MPV (7.2-11.7) fL Neut % (Auto) (50.0-75.0) % Lymph % (Auto) (20.0-40.0) % [place] % (Auto) (0.0-10.0) % Eos % (Auto) (0.0-4.0) % Baso % (Auto) (0.0-2.0) % Neut # (Auto) (1.8-7.0) K/uL Lymph # (Auto) (1.0-4.3) K/uL [place] # (Auto) (0.0-0.8) K/uL Eos # (Auto) (0.0-0.7) K/uL Baso # (Auto) (0.0-0.2) K/uL APTT 59 H D (21-34) SECONDS Puncture Site pCO2 (35-45) mm/Hg pO2 (80-100) mm/Hg HCO3 (21-28) mmol/L ABG pH (7.35-7.45) ABG Total CO2 (22-28) mmol/L ABG O2 Saturation (95-98) % ABG Base Excess (-2.0-3.0) mmol/L ABG Hemoglobin (11.7-17.4) g/dL ABG Carboxyhemoglobin (0.5-1.5) % POC ABG HHb (Measured) (0.0-5.0) % ABG Methemoglobin (0.0-3.0) % Kevon Test A-a O2 Difference mm/Hg Respiratory Index Hgb O2 Saturation (95.0-98.0) % Vent Mode Mechanical Rate FiO2 % Tidal Volume PEEP Sodium (132-148) mmol/L Potassium (3.6-5.2) mmol/L Chloride (98-107) mmol/L Carbon Dioxide (22-30) mmol/L Anion Gap (10-20) BUN (7-17) mg/dL Creatinine (0.7-1.2) mg/dL Est GFR ( Amer) Est GFR (Non-Af Amer) POC Glucose (mg/dL) 116 H (65-110) mg/dL Random Glucose (65-105) mg/dL Calcium (8.6-10.4) mg/dl Phosphorus (2.5-4.5) mg/dL Magnesium (1.6-2.3) mg/dL Total Bilirubin (0.2-1.3) mg/dL AST (14-36) U/L ALT (9-52) U/L Alkaline Phosphatase (38-126) U/L Total Protein (6.3-8.3) g/dL Albumin (3.5-5.0) g/dL Globulin (2.2-3.9) gm/dL Albumin/Globulin Ratio (1.0-2.1) Free T4 (0.78-2.19) ng/dL Free T3 pg/mL (2.77-5.27) pg/mL TSH 3rd Generation (0.46-4.68) mIU/L FSH 3rd Generation 1.7 mIU/mL Luteinizing Hormone < 0.2 mIU/mL Prolactin 18.5 (3.0-18.9) ng/mL Laboratory Results - last 24 hr 07/26/18 07/26/18 07/26/18 17:41 18:26 22:00 WBC RBC Hgb Hct MCV MCH MCHC RDW Plt Count MPV Neut % (Auto) Lymph % (Auto) [place] % (Auto) Eos % (Auto) Baso % (Auto) Neut # (Auto) Lymph # (Auto) [place] # (Auto) Eos # (Auto) Baso # (Auto) APTT 59 H D Puncture Site pCO2 pO2 HCO3 ABG pH ABG Total CO2 ABG O2 Saturation ABG Base Excess ABG Hemoglobin ABG Carboxyhemoglobin POC ABG HHb (Measured) ABG Methemoglobin Kevon Test A-a O2 Difference Respiratory Index Hgb O2 Saturation Vent Mode Mechanical Rate FiO2 Tidal Volume PEEP Sodium Potassium Chloride Carbon Dioxide Anion Gap BUN Creatinine Est GFR ( Amer) Est GFR (Non-Af Amer) POC Glucose (mg/dL) 116 H Random Glucose Calcium Phosphorus Magnesium Total Bilirubin AST ALT Alkaline Phosphatase Total Protein Albumin Globulin Albumin/Globulin Ratio Free T4 Free T3 pg/mL TSH 3rd Generation FSH 3rd Generation 1.7 Luteinizing Hormone < 0.2 Prolactin 18.5 07/27/18 07/27/18 07/27/18 00:14 04:15 06:02 WBC RBC Hgb Hct MCV MCH MCHC RDW Plt Count MPV Neut % (Auto) Lymph % (Auto) [place] % (Auto) Eos % (Auto) Baso % (Auto) Neut # (Auto) Lymph # (Auto) [place] # (Auto) Eos # (Auto) Baso # (Auto) APTT Puncture Site Rr pCO2 39 pO2 145 H HCO3 26.1 ABG pH 7.43 ABG Total CO2 27.1 ABG O2 Saturation 99.3 H ABG Base Excess 1.5 ABG Hemoglobin 9.3 L ABG Carboxyhemoglobin 1.8 H POC ABG HHb (Measured) 0.7 ABG Methemoglobin 0.6 Kevon Test Pos A-a O2 Difference 163.0 Respiratory Index 1.1 Hgb O2 Saturation 96.9 Vent Mode Prvc Mechanical Rate 10 FiO2 50.0 Tidal Volume 400 PEEP 5 Sodium Potassium Chloride Carbon Dioxide Anion Gap BUN Creatinine Est GFR ( Amer) Est GFR (Non-Af Amer) POC Glucose (mg/dL) 162 H 184 H Random Glucose Calcium Phosphorus Magnesium Total Bilirubin AST ALT Alkaline Phosphatase Total Protein Albumin Globulin Albumin/Globulin Ratio Free T4 Free T3 pg/mL TSH 3rd Generation FSH 3rd Generation Luteinizing Hormone Prolactin 07/27/18 07/27/18 07/27/18 06:35 06:35 06:35 WBC 5.8 RBC 2.93 L Hgb 8.8 L Hct 25.7 L MCV 87.7 MCH 29.9 MCHC 34.1 RDW 14.7 H Plt Count 240 MPV 8.8 Neut % (Auto) 60.8 Lymph % (Auto) 24.1 [place] % (Auto) 10.1 H Eos % (Auto) 4.0 Baso % (Auto) 1.0 Neut # (Auto) 3.5 Lymph # (Auto) 1.4 [place] # (Auto) 0.6 Eos # (Auto) 0.2 Baso # (Auto) 0.1 APTT 55 H Puncture Site pCO2 pO2 HCO3 ABG pH ABG Total CO2 ABG O2 Saturation ABG Base Excess ABG Hemoglobin ABG Carboxyhemoglobin POC ABG HHb (Measured) ABG Methemoglobin Kevon Test A-a O2 Difference Respiratory Index Hgb O2 Saturation Vent Mode Mechanical Rate FiO2 Tidal Volume PEEP Sodium 139 Potassium 3.4 L Chloride 106 Carbon Dioxide 27 Anion Gap 10 BUN 17 Creatinine 1.1 Est GFR ( Amer) > 60 Est GFR (Non-Af Amer) 52 POC Glucose (mg/dL) Random Glucose 171 H Calcium 8.2 L Phosphorus 3.5 Magnesium 2.5 H Total Bilirubin 0.7 AST 19 ALT 29 Alkaline Phosphatase 210 H Total Protein 5.9 L Albumin 2.6 L Globulin 3.3 Albumin/Globulin Ratio 0.8 L Free T4 Free T3 pg/mL TSH 3rd Generation FSH 3rd Generation Luteinizing Hormone Prolactin 07/27/18 07/27/18 07/27/18 11:47 13:06 13:06 WBC RBC Hgb Hct MCV MCH MCHC RDW Plt Count MPV Neut % (Auto) Lymph % (Auto) [place] % (Auto) Eos % (Auto) Baso % (Auto) Neut # (Auto) Lymph # (Auto) [place] # (Auto) Eos # (Auto) Baso # (Auto) APTT Puncture Site pCO2 pO2 HCO3 ABG pH ABG Total CO2 ABG O2 Saturation ABG Base Excess ABG Hemoglobin ABG Carboxyhemoglobin POC ABG HHb (Measured) ABG Methemoglobin Kevon Test A-a O2 Difference Respiratory Index Hgb O2 Saturation Vent Mode Mechanical Rate FiO2 Tidal Volume PEEP Sodium Potassium Chloride Carbon Dioxide Anion Gap BUN Creatinine Est GFR ( Amer) Est GFR (Non-Af Amer) POC Glucose (mg/dL) 143 H Random Glucose Calcium Phosphorus Magnesium Total Bilirubin AST ALT Alkaline Phosphatase Total Protein Albumin Globulin Albumin/Globulin Ratio Free T4 3.55 H Free T3 pg/mL 4.26 TSH 3rd Generation < 0.02 L FSH 3rd Generation Luteinizing Hormone Prolactin Critical Care Progress Note - Nutrition Nutrition: Nutrition Category Date Time Status NPO Diet [DIET] Diets 07/25/18 Breakfast Active Assessment/Plan (1) Aspiration pneumonia Current Visit: Yes Status: Acute Attending/Attestation - Attestation I have personally seen and examined this patient.: Yes I have fully participated in the care of the patient.: Yes I have reviewed all pertinent clinical information: Yes Notes (Text): 07/27/18 17:42 I have seen and examined the patient. Medical records, lab studies, and imaging were reviewed by me and a management plan was formulated on multidisciplinary rounds with resident Dr. Gonzalez. I agree with their documented assessment and plan. Patient is weak, delirious, and cachectic; s/p trach/peg. She will need aggressive OT in bed and eventual early mobilization once capable. Thoracentesis for tomorrow. Start on full dose lovenox for intraventricular thrombosis, after thoracentesis. Once completely stable with no more planned procedures, will convert to Eliquis. Critical Care Time 35 minutes. Multi-disciplinary rounds were performed with house staff, nursing, speech therapy, respiratory therapy, pharmacy and nutrition with integrated input from the primary team/attending and other consulting services. The documented time is cumulative and includes review of patient data/exams/labs/chart review and examination of the patient on rounds and throughout the day; time is exclusive of any procedures or teaching time.
--- NOTE | 2018-07-27 14:43 | RAD ---
Date of service: 07/27/2018 HISTORY: congestion COMPARISON: 07/26/2018 FINDINGS: LUNGS: Right basilar opacity suspicious for pneumonia. Patchy right upper lobe opacity also noted. No left-sided opacity. PLEURA: No significant pleural effusion identified, no pneumothorax apparent. CARDIOVASCULAR: Normal heart size. Tracheostomy noted. Nasogastric tube has been removed. Right subclavian central venous catheter unchanged grossly. OSSEOUS STRUCTURES: No significant abnormalities. VISUALIZED UPPER ABDOMEN: Normal. OTHER FINDINGS: None. IMPRESSION: Right basilar and possible right upper lobe infiltrate. Nasogastric tube removed.
[2018-07-27] MEDS: Rosuvastatin Calcium 2.5 mg Tab PO SCH (21:19)
--- NOTE | 2018-07-27 22:58 | CP.PCM.PN ---
Subjective - Date & Time of Evaluation Date of Evaluation: 07/27/18 Time of Evaluation: 14:00 - Subjective Subjective: Medical Attending Note: Patient seen and examined at bedside. Unable to ROS secondary to clinical condition. Patient's at bedside. Patient had attempted juice at bedside with nurse. Encourage to continue to speak with and ecnourage her. Patient notes pain over her peg site and is sensitive around the trach site. unable to ros secondary clinical condition. Objective - Vital Signs/Intake and Output Vital Signs (last 24 hours): Temp Pulse Resp BP Pulse Ox 99.7 F H 87 13 80/53 L 98 07/27/18 20:00 07/27/18 22:38 07/27/18 22:38 07/27/18 22:38 07/27/18 22:38 Intake and Output: 07/27/18 07/28/18 18:59 06:59 Intake Total 681.6 200.4 Output Total 1330 250 Balance -648.4 -49.6 - Medications Medications: Current Medications Albuterol/Ipratropium (Duoneb 3 Mg/0.5 Mg (3 Ml) Ud) 3 ml INH RQ6 [facility] Last Admin: 07/27/18 19:13 Dose: 3 ml Ascorbic Acid (Vitamin C 500 Mg Tab) 1,000 mg NG DAILY [facility] Last Admin: 07/27/18 09:05 Dose: 1,000 mg Aspirin (Aspirin Chewable) 81 mg GT DAILY [facility] Last Admin: 07/27/18 09:04 Dose: 81 mg Ergocalciferol (Drisdol 50,000 Intl Units Cap) 1 cap PO Q7D [facility] Last Admin: 07/25/18 14:15 Dose: 1 cap Furosemide (Lasix) 20 mg IVP BID [facility] Last Admin: 07/27/18 17:16 Dose: 20 mg Heparin Sodium/Sodium Chloride (Heparin 23736 Units/250ml 1/2 Normal Saline) 25,000 units in 250 mls @ 6.804 mls/hr IV .Q24H PRN; Protocol PRN Reason: PROTOCOL Last Admin: 07/26/18 16:02 Dose: 6.804 mls/hr Dextrose (Dextrose 10% In Water) 1,000 mls @ 30 mls/hr IV .Q24H [facility] Last Admin: 07/27/18 21:50 Dose: 30 mls/hr Norepinephrine Bitartrate 4 mg (/ Sodium Chloride) 254 mls @ 19.05 mls/hr IV .[id number] PRN; Protocol PRN Reason: TITRATE PER MD ORDER Last Titration: 07/26/18 19:35 Dose: 4 mcg/min, 15.24 mls/hr Insulin Aspart (Novolog) 0 unit SC Q6 [facility]; Protocol Last Admin: 07/27/18 17:41 Dose: 2 units Insulin Glargine (Lantus) 20 unit SC Q12 [facility] Last Admin: 07/24/18 22:13 Dose: 20 u Lactobacillus Acidophilus (Bacid Acidophilus) 1 cap PO Q12H [facility] Last Admin: 07/27/18 20:16 Dose: 1 cap Methimazole (Tapazole) 20 mg PO Q8 [facility] Last Admin: 07/27/18 21:30 Dose: 20 mg Morphine Sulfate (Morphine) 2 mg IV Q4H PRN PRN Reason: Pain, moderate (4-7) Last Admin: 07/27/18 21:43 Dose: 2 mg Multivitamins/Vitamin C (Multi-Delyn Liquid) 5 ml PO DAILY [facility] Last Admin: 07/27/18 09:06 Dose: 5 ml Pantoprazole Sodium (Protonix Susp) 40 mg PO DAILY [facility] Last Admin: 07/27/18 09:05 Dose: 40 mg Propranolol HCl (Inderal) 5 mg PO TID [facility] Last Admin: 07/27/18 17:16 Dose: 5 mg Rosuvastatin Calcium (Crestor) 2.5 mg PO HS [facility] Last Admin: 07/27/18 21:19 Dose: 2.5 mg - Labs Labs: 07/27/18 06:35 07/27/18 06:35 PT 14.3 SECONDS (9.7-12.2) H 07/23/18 10:26 INR 1.3 07/23/18 10:26 APTT 55 SECONDS (21-34) H 07/27/18 06:35 - Constitutional Appears: Chronically Ill - Head Exam Head Exam: NORMAL INSPECTION - Eye Exam Eye Exam: EOMI - ENT Exam ENT Exam: Mucous Membranes Moist - Respiratory Exam Respiratory Exam: Decreased Breath Sounds, Rales, NORMAL BREATHING PATTERN - GI/Abdominal Exam GI & Abdominal Exam: Soft, Normal Bowel Sounds Additional comments: mild distension, pain over palpation over peg site no rebound, no guarding - Extremities Exam Extremities Exam: Pedal Edema Additional comments: prevalon boots - Neurological Exam Neurological Exam: Awake - Psychiatric Exam Psychiatric exam: Agitated, Anxious - Skin Skin Exam: Dry, Intact, Normal Color, Warm Assessment and Plan (1) Septic shock Status: Acute (2) Acute respiratory failure Status: Acute (3) Urinary tract infection Status: Acute (4) Acute renal failure Status: Acute (5) Aspiration pneumonia Status: Acute (6) Diabetes mellitus Status: Chronic (7) Ventricular arrhythmia Status: Acute (8) Hyperthyroidism Status: Acute (9) Anemia Status: Acute (10) Prophylactic measure Status: Acute Attending/Attestation - Attestation I have personally seen and examined this patient.: Yes I have fully participated in the care of the patient.: Yes I have reviewed all pertinent clinical information, including history, physical exam and plan: Yes Notes (Text): Patient is status post trachestomy POD 3. patient has noted apical thrombus and LLE DVT; on heparin drip (previously on Eliquis prior to procedures) Patient is on Meropenem; pending repeat procalcitonin shows improving 0.75 from 3.86 on 07/20/18. patient has been w/o fever since 07/19/18 and white count has normalized. Discussed with ID, no vancomycin needed. Per cardiology, once procedures are done, recommend for anticoagulation for 3 months. Patient going for thoracentesis tomorrow with IR for pleural effusion. Patient is back on pressor with Propranolol. Patient encouraged for early mobility with aggressive PT/OT. Will need to speak to case management since patient does not have insurance. Discussed with cardiology since patient will need cardiac workup in light of intracardiac thrombus. Assessment/plan 1) Septic Shock Assessment/Plan * Infectious Disease (Dr. Brock) on case-->help appreciated * Tmax: 101.7 F (07/19/18) * Afebrile since * Criteria: leukocytosis, tachycardia * Source: aspiration pneumonia and urinary tract infection * 07/07/18: Urine: E. Coli * 07/09/18: Urine: No growth * 07/07/18: Blood culture: no growth after 5 days X2 * 07/09/18 Blood culture: no growth after 5 days X2 * 07/14/18: blood cultures: no growth to date * 07/14/18: sputum culture: yeast species * 07/14/18: Urine culture: no growth * 07/20/18: Blood culture: no growth after 5 days X2 * 07/20/18: Urine culture: no growth * 07/21/18: No Salmonella, shigella, or campobacter * 07/23/18 Urine culture: no growth * MRSA not detected * Antibiotics * Rocephin 2gm IVPB Q12H (07/14/18 through 07/20/18) * Meropenem 1 gm IV Q8H (active since 07/20/18) * Vancomycin 1 gram IVPB Q24H (being held since 07/20/18)-->vancomycin level 7.7-->per id to d/c vancomycin 2) Acute Respiratory Failure Pulmonary Edema Bilateral Pleural Effusion and Consolidations Likely Secondary to Aspiration Pneumonia Assessment/Plan * Required reintubated after 2nd fail attempt; patient underwent trachestomy 07/24/18 * off Solumedrol * Duonebs RQ6H PRN wheezing * MRSA screen: not detected * Sputum culture 07/09/18, 07/12/18, 07/14/18: yeast * Mycoplasma negative * Legionella was negative * Influenza negative * HIV negative * CT Chest 07/15/18: Moderate to large bilateral pleural effusion and associated consolidations, pathcy grround-glass infiltrates/edema noted within bilateral upper lobes * Chest xray (07/24/18): worsening infiltrates, satisfactory position of recently placed tracheostomy device. Satisfactory position of remaining support apparatus including venous access catheter and recently placed nasog astric tube * Rocephin 2gm IVPB Q12H (07/14/18 through 07/20/18) * Meropenem 1 gm IV Q8H (active since 07/20/18) * Vancomycin 1 gram IVPB Q24H (being held since 07/20/18) discontinued by ID * Bedside Thoracic U/S 07/17/18 did not reveal enough pleural effusion for Thoracentesis * Lasix 20 mg IV Q12H * Levophed Drip on * Procalcitonin uptrending as of 07/20/18; Repeat 0.75. 3) Ventricular Tachycardia NSTEMI Apical Thrombus LLE DVT Assessment/Plan * Code Blue 07/10: SVT==>VT required amiodarone, magnesium, one shock delivered * Code Blue 07/20: vtach s/p amiodarone, fluid, calcium gluconate, required compressions and shock * Cardiology Dr Francisco on case help appreciated * Echocardiogram (07/07/18): left ventricle systolic function is borderline, ejection fraction is 45-50%, no aortic regurgitation is present, mitral regurgitation is mild. Mild tricuspid regurgitation. mild pulmonary hypertension, mild pulmonic valvular regurgitation * Contrast Echo: Large apical hypokinesis a large 30 x 20 mm soft tissue apical sessile mass suggestive of thrombus overall fraction 40%. Obtain a HUBERT or/consider stress card myopathy if coronary disease is excluded further findings per report * Amiodarone discontinued * Monitor electrolytes * Heparin drip changed to Eliquis 2.5 mg 2x/day 07/18/18 and then patient placed back on Heparin Drip 07/21/18 for pending Tracheostomy on 07/24/18 * Recommended Heparin drip until possible Peg placement with GI * Aspirin 81 mg PO 1x/day. Considering patient already on Eliquis and to reduce chance of bleeding, Plavix was discontinued 07/18/18. * Eliquis is on hold for trach and/or peg placement * Propranolol 5mg PO TID 4) Urinary Tract Infection Assessment/Plan * Infectious disease on board help appreciated * 07/07/18: Urine: E. Coli * 07/09/18: Urine: No growth * 07/14/18: Urine culture: No growth * Urine Culture 07/20/18: No growth 5) Diabetes-->chronic Assessment/Plan * HgBA1c: 7.8 * Hypoglycemic protocol * Lantus 20 units subcutaneous at bedtime Q12 6) Acute on Chronic Renal Failure Assessment/Plan * Nephrology (Dr. Hyde) on board--> help appreciated * Patient will likely not need dialysis * Renal function continues to improve 7) Hyperthyroidism? Low TSH, and Free T4 Thyroid Storm Assessment/Plan * Note Thyroid studies taken before amiodarone was given (please advised this is not amiodarone induced her levels were abnormal prior) * Patient does not have prior thyroid history * Endocrinology (Dr. 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 She will need outpatient FNA Bx of the complex Left Lobe cyst (please see full report) * Methimazole 10mg PO TID * Propranolol 5 mg PO TID * Monitor LFTs 8) Anemia Likely Secondary to Chronic Diseases Assessment/Plan * Iron normal, TIBC low, Iron Saturation normal, Ferritin normal * Stool occult blood negative * B12 normal * Folate Normal * Being transfused 1 unit PRBC 07/22/18 * Patient is on Eliquis (which is being held and switched to Heparin Drip for Tracheostomy 07/24/18; and possible peg placement) for the Cardiac Apical Thrombus and on Aspirin for the NSTEMI (Plavix was discontinued 07/18/18) 9) Transminitis-->improving * Likely secondary to Sepsis and Amiodarone (which was discontinued) * Hepatitis serology negative * Slightly elevated from normal on 07/20/18 but could be secondary to GAS DISPENSER/Code Blue 07/20/18 10) Vitamin D deficiency Assessment plan * 50,000 international units once a week for at least 8-12 weeks started on 07/11/18 11) Thrombocytopenia-->resolved Assessment plan * Sepsis, vs Methimazole? * Patient was on Heparin Drip through 07/18/18 and then started on Eliquis on this date * Heparin drip for procedures * patient was on Eliquis prior but given trachestomy and now peg placement * Fibrinogen elevated * HIT and RUSTY both negative for HIT * Currently normalized 12) 13 mm Left Adrenal Nodule * As seen on CT Chest 07/16/18 * Will need outpatient follow up for cross sectional imaging for better characterization 13) Hypernatremia-->resolved * Free water 250 ml 3x/day via OGT * Na now normal 14) LLE DVT * Heparin drip changed to Eliquis 2.5 mg 2x/day 07/18/18 and then patient placed back on Heparin Drip 07/21/18 for pending Tracheostomy on 07/24/18 * Recommended Heparin drip until possible Peg placement with GI * Acute thrombosis of the left common femoral and femoral veins with severe reduction of the venous return on 07/18/18 venous doppler 15) Prophylactic measure * Protonix 40mg PO BID * Eliquis 2.5 mg PO BID which has been changed back to Heparin Drip for Tracheostomy 07/24/18; now allows for peg placement with GI; c/w heparin drip until procedures are completed * Bilateral SCDs * Glucerna Feedings via OGT * Subclavian line 07/14/18 * Off precedex * On morphine PRN s/p trachestomy POD 3 Disposition; Patient underwent open trachoestomy three days ago and status post peg placement yesterday. Heparin drip and feeds started today via Peg. Patient is on IV abx for pneumonia and urinary tract infection.
[2018-07-28] MEDS: Albuterol-Ipratrop 3 mg / 0.5 (3 ml) UD INH SCH ×2 (01:09→07:30)
[2018-07-28] MEDS: (Novolog) Insulin Aspart, Recombinant 100 u/ml 10 ml vial SC SCH ×4 (01:17→18:08)
[2018-07-28 04:19] LABS: ABG ALLEN TEST POS; ARTERIAL BLOOD GAS HCO3 25.4 mmol/L (21-28); ARTERIAL BLOOD GAS HEMOGLOBIN 9.8 g/dL (11.7-17.4); ARTERIAL BLOOD GAS O2 SAT 99.7 % (95-98); ARTERIAL BLOOD GAS PCO2 33 mm/Hg (35-45); ARTERIAL BLOOD GAS PH 7.47 (7.35-7.45); ARTERIAL BLOOD GAS PO2 132 mm/Hg (80-100)
[2018-07-28 06:30] LABS: BASO # 0.1 K/uL (0.0-0.2); BASO % 0.9 % (0.0-2.0); EOS # 0.3 K/uL (0.0-0.7); EOS % 4.5 % (0.0-4.0); HEMOGLOBIN 8.5 g/dL (11.0-16.0); LYMPH # 1.8 K/uL (1.0-4.3); MEAN CELL VOLUME 88.5 fL (81.0-99.0); MEAN CORPUSCULAR HEMOGLOBIN 29.3 pg (27.0-31.0); MEAN CORPUSCULAR HGB CONC 33.2 g/dL (33.0-37.0); MONO # 0.9 K/uL (0.0-0.8); NEUT # 3.3 K/uL (1.8-7.0); NEUT % 52.6 % (50.0-75.0); NRBC % 0.2 % (0.0-2.0); RBC 2.88 Mil/uL (3.80-5.20); RED CELL DISTRIBUTION WIDTH 14.8 % (11.5-14.5); WHITE BLOOD COUNT 6.3 K/uL (4.8-10.8)
[2018-07-28 06:34] LABS: INR 1.6; PROTHROMBIN TIME 17.7 SECONDS (9.7-12.2)
[2018-07-28 07:01] LABS: ALB/GLOB RATIO 0.8 (1.0-2.1); ALBUMIN 2.8 g/dL (3.5-5.0); CALCIUM 8.3 mg/dl (8.6-10.4)
[2018-07-28] MEDS: Lactobacillus Acidophilus 500 MU Cap PO SCH ×2 (08:14→20:08)
--- NOTE | 2018-07-28 08:22 | RAD ---
Date of service: 07/28/2018 HISTORY: congestion COMPARISON: 07/27/2018 FINDINGS: Tracheostomy tube is in stable position. Right-sided central venous catheter terminates at the cavoatrial junction. LUNGS: There is redemonstration of opacity in the right lower lobe and worsening consolidation in the left lower lobe. There is mild pulmonary venous congestion. PLEURA: Suspect layering effusions. No pneumothorax. CARDIOVASCULAR: Persistent mild cardiomegaly. No aortic atherosclerotic calcification present. OSSEOUS STRUCTURES: Within normal limits for the patient's age. VISUALIZED UPPER ABDOMEN: Normal. OTHER FINDINGS: None. IMPRESSION: Little interval change in right pleural effusion and underlying pneumonia, worse on the right. Worsening consolidation in the left lower lobe and persistent left pleural effusion
[2018-07-28] MEDS ORDERED: Lidocaine Hydrochloride 0 ML INJ ONE (09:08)
--- NOTE | 2018-07-28 09:30 | CP.PCM.PN ---
Subjective - Date & Time of Evaluation Date of Evaluation: 07/28/18 Time of Evaluation: 08:10 - Subjective Subjective: Medical Attending Note: Patient seen and examined this morning. Patient's not present at bedside. Patient moving her arms and legs spontaneously. Unable to ROS secondary to clinical condition. Patient's thoracentesis cancelled there is not fluid for IR to remove. Objective - Vital Signs/Intake and Output Vital Signs (last 24 hours): Temp Pulse Resp BP Pulse Ox 99.3 F 84 10 L 117/59 L 100 07/28/18 08:00 07/28/18 09:03 07/28/18 09:03 07/28/18 09:03 07/28/18 09:03 Intake and Output: 07/28/18 07/28/18 06:59 18:59 Intake Total 958.4 226.4 Output Total 390 300 Balance 568.4 -73.6 - Medications Medications: Current Medications Albuterol/Ipratropium (Duoneb 3 Mg/0.5 Mg (3 Ml) Ud) 3 ml INH RQ6 [facility] Last Admin: 07/28/18 07:30 Dose: 3 ml Ascorbic Acid (Vitamin C 500 Mg Tab) 1,000 mg NG DAILY [facility] Last Admin: 07/27/18 09:05 Dose: 1,000 mg Aspirin (Aspirin Chewable) 81 mg GT DAILY [facility] Last Admin: 07/27/18 09:04 Dose: 81 mg Ergocalciferol (Drisdol 50,000 Intl Units Cap) 1 cap PO Q7D [facility] Last Admin: 07/25/18 14:15 Dose: 1 cap Furosemide (Lasix) 20 mg IVP BID [facility] Last Admin: 07/27/18 17:16 Dose: 20 mg Heparin Sodium/Sodium Chloride (Heparin 40286 Units/250ml 1/2 Normal Saline) 25,000 units in 250 mls @ 6.804 mls/hr IV .Q24H PRN; Protocol PRN Reason: PROTOCOL Last Admin: 07/26/18 16:02 Dose: 6.804 mls/hr Dextrose (Dextrose 10% In Water) 1,000 mls @ 30 mls/hr IV .Q24H [facility] Last Admin: 07/28/18 08:11 Dose: Not Given Norepinephrine Bitartrate 4 mg (/ Sodium Chloride) 254 mls @ 19.05 mls/hr IV .[id number] PRN; Protocol PRN Reason: TITRATE PER MD ORDER Last Titration: 07/28/18 03:45 Dose: 4.93 mcg/min, 18.8 mls/hr Insulin Aspart (Novolog) 0 unit SC Q6 [facility]; Protocol Last Admin: 07/28/18 06:13 Dose: 2 units Insulin Glargine (Lantus) 20 unit SC Q12 [facility] Last Admin: 07/24/18 22:13 Dose: 20 u Lactobacillus Acidophilus (Bacid Acidophilus) 1 cap PO Q12H [facility] Last Admin: 07/28/18 08:14 Dose: 1 cap Methimazole (Tapazole) 20 mg PO Q8 [facility] Last Admin: 07/28/18 06:14 Dose: 20 mg Morphine Sulfate (Morphine) 2 mg IV Q4H PRN PRN Reason: Pain, moderate (4-7) Last Admin: 07/27/18 21:43 Dose: 2 mg Multivitamins/Vitamin C (Multi-Delyn Liquid) 5 ml PO DAILY [facility] Last Admin: 07/27/18 09:06 Dose: 5 ml Pantoprazole Sodium (Protonix Susp) 40 mg PO DAILY [facility] Last Admin: 07/27/18 09:05 Dose: 40 mg Propranolol HCl (Inderal) 5 mg PO TID [facility] Last Admin: 07/27/18 17:16 Dose: 5 mg Rosuvastatin Calcium (Crestor) 2.5 mg PO HS [facility] Last Admin: 07/27/18 21:19 Dose: 2.5 mg - Labs Labs: 07/28/18 06:19 07/28/18 06:19 PT 17.7 SECONDS (9.7-12.2) H 07/28/18 06:19 INR 1.6 07/28/18 06:19 APTT 52 SECONDS (21-34) H 07/28/18 06:19 - Constitutional Appears: Chronically Ill - Head Exam Head Exam: NORMAL INSPECTION Additional comments: s/p trach (clean/dry/intact) s/p peg (clean/dry /intact) subclavian line (right side of chest) clean/dry/intact Prevalon boots - Eye Exam Eye Exam: EOMI, PERRL - ENT Exam ENT Exam: Mucous Membranes Moist - Respiratory Exam Respiratory Exam: Decreased Breath Sounds, Rales, NORMAL BREATHING PATTERN. a bsent: Respiratory Distress, Stridor - Cardiovascular Exam Cardiovascular Exam: REGULAR RHYTHM, +S1, +S2 - GI/Abdominal Exam GI & Abdominal Exam: Soft, Normal Bowel Sounds. absent: Distended, Firm, Guarding, Rigid, Tenderness, Rebound Additional comments: s/p peg placement (clean/dry/intact) pain on palpation - Extremities Exam Extremities Exam: absent: Pedal Edema, Tenderness Additional comments: prevalon boots b/l muscle wasting bilateral - Neurological Exam Neurological Exam: Alert - Psychiatric Exam Psychiatric exam: Agitated - Skin Skin Exam: Dry, Intact, Normal Color, Warm Assessment and Plan (1) Septic shock Status: Acute (2) Acute respiratory failure Status: Acute (3) Urinary tract infection Status: Acute (4) Acute renal failure Status: Acute (5) Aspiration pneumonia Status: Acute (6) Diabetes mellitus Status: Chronic (7) Ventricular arrhythmia Status: Acute (8) Hyperthyroidism Status: Acute (9) Anemia Status: Acute (10) Prophylactic measure Status: Acute Attending/Attestation - Attestation I have personally seen and examined this patient.: Yes I have fully participated in the care of the patient.: Yes I have reviewed all pertinent clinical information, including history, physical exam and plan: Yes Notes (Text): Patient is status post trachestomy POD 4. patient has noted apical thrombus and LLE DVT; on heparin drip (previously on Eliquis prior to procedures) Patient is on Meropenem; pending repeat procalcitonin shows improving 0.75 from 3.86 on 07/20/18. patient has been w/o fever since 07/19/18 and white count has normalized. Discussed with ID, no vancomycin needed. Per cardiology, once procedures are done, recommend for anticoagulation for 3 months. Thoracenteis cancelled since no fluid to drain per IR. Patient is back on pressor with Propranolol. Patient encouraged for early mobility with aggressive PT/OT. Will need to speak to case management since patient does not have insurance. Discussed with cardiology since patient will need cardiac workup in light of intracardiac thrombus possible for next week. Assessment/plan 1) Septic Shock Assessment/Plan * Infectious Disease (Dr. Brock) on case-->help appreciated * Tmax: 101.7 F (07/19/18) * Afebrile since * Criteria: leukocytosis, tachycardia * Source: aspiration pneumonia and urinary tract infection * 07/07/18: Urine: E. Coli * 07/09/18: Urine: No growth * 07/07/18: Blood culture: no growth after 5 days X2 * 07/09/18 Blood culture: no growth after 5 days X2 * 07/14/18: blood cultures: no growth to date * 07/14/18: sputum culture: yeast species * 07/14/18: Urine culture: no growth * 07/20/18: Blood culture: no growth after 5 days X2 * 07/20/18: Urine culture: no growth * 07/21/18: No Salmonella, shigella, or campobacter * 07/23/18 Urine culture: no growth * MRSA not detected * Antibiotics * Rocephin 2gm IVPB Q12H (07/14/18 through 07/20/18) * Meropenem 1 gm IV Q8H (active since 07/20/18) * Vancomycin 1 gram IVPB Q24H (being held since 07/20/18)-->vancomycin level 7.7-->per id to d/c vancomycin 2) Acute Respiratory Failure Pulmonary Edema Bilateral Pleural Effusion and Consolidations Likely Secondary to Aspiration Pneumonia Assessment/Plan * Required reintubated after 2nd fail attempt; patient underwent trachestomy 07/24/18 * off Solumedrol * Duonebs RQ6H PRN wheezing * MRSA screen: not detected * Sputum culture 07/09/18, 07/12/18, 07/14/18: yeast * Mycoplasma negative * Legionella was negative * Influenza negative * HIV negative * CT Chest 07/15/18: Moderate to large bilateral pleural effusion and associated consolidations, pathcy grround-glass infiltrates/edema noted within bilateral upper lobes * Chest xray (07/24/18): worsening infiltrates, satisfactory position of recent ly placed tracheostomy device. Satisfactory position of remaining support apparatus including venous access catheter and recently placed nasogastric tube * Rocephin 2gm IVPB Q12H (07/14/18 through 07/20/18) * Meropenem 1 gm IV Q8H (active since 07/20/18) * Vancomycin 1 gram IVPB Q24H (being held since 07/20/18) discontinued by ID * Bedside Thoracic U/S 07/17/18 did not reveal enough pleural effusion for Thoracentesis * Lasix 20 mg IV Q12H * Levophed Drip on * Procalcitonin uptrending as of 07/20/18; Repeat 0.75. 3) Ventricular Tachycardia NSTEMI Apical Thrombus LLE DVT Assessment/Plan * Code Blue 07/10: SVT==>VT required amiodarone, magnesium, one shock delivered * Code Blue 07/20: vtach s/p amiodarone, fluid, calcium gluconate, required compressions and shock * Cardiology Dr Francisco on case help appreciated * Echocardiogram (07/07/18): left ventricle systolic function is borderline, ejection fraction is 45-50%, no aortic regurgitation is present, mitral regurgitation is mild. Mild tricuspid regurgitation. mild pulmonary hyp ertension, mild pulmonic valvular regurgitation * Contrast Echo: Large apical hypokinesis a large 30 x 20 mm soft tissue apical sessile mass suggestive of thrombus overall fraction 40%. Obtain a HUBERT or /consider stress card myopathy if coronary disease is excluded further findings per report * Amiodarone discontinued * Monitor electrolytes * Heparin drip changed to Eliquis 2.5 mg 2x/day 07/18/18 and then patient placed back on Heparin Drip 07/21/18 for pending Tracheostomy on 07/24/18 * held for thoracentesis * Aspirin 81 mg PO 1x/day. Considering patient already on Eliquis and to reduce chance of bleeding, Plavix was discontinued 07/18/18. * Eliquis is on hold for trach and/or peg placement * Propranolol 5mg PO TID 4) Urinary Tract Infection Assessment/Plan * Infectious disease on board help appreciated * 07/07/18: Urine: E. Coli * 07/09/18: Urine: No growth * 07/14/18: Urine culture: No growth * Urine Culture 07/20/18: No growth 5) Diabetes-->chronic Assessment/Plan * HgBA1c: 7.8 * Hypoglycemic protocol * Lantus 20 units subcutaneous at bedtime Q12 6) Acute on Chronic Renal Failure Assessment/Plan * Nephrology (Dr. Hyde) on board--> help appreciated * Patient will likely not need dialysis * Renal function continues to improve 7) Hyperthyroidism? Low TSH, and Free T4 Thyroid Storm Assessment/Plan * Note Thyroid studies taken before amiodarone was given (please advised this is not amiodarone induced her levels were abnormal prior) * Patient does not have prior thyroid history * Endocrinology (Dr. 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 She will need outpatient FNA Bx of the complex Left Lobe cyst (please see full report) * Methimazole 20mg PO TID * Propranolol 5 mg PO TID * Monitor LFTs 8) Anemia Likely Secondary to Chronic Diseases Assessment/Plan * Iron normal, TIBC low, Iron Saturation normal, Ferritin normal * Stool occult blood negative * B12 normal * Folate Normal * Being transfused 1 unit PRBC 07/22/18 * Patient is on Eliquis (which is being held and switched to Heparin Drip for Tracheostomy 07/24/18; and possible peg placement) for the Cardiac Apical Thrombus and on Aspirin for the NSTEMI (Plavix was discontinued 07/18/18) 9) Transminitis-->improving * Likely secondary to Sepsis and Amiodarone (which was discontinued) * Hepatitis serology negative * Slightly elevated from normal on 07/20/18 but could be secondary to [employer]/Code Blue 07/20/18 10) Vitamin D deficiency Assessment plan * 50,000 international units once a week for at least 8-12 weeks started on 07/11/18 11) Thrombocytopenia-->resolved Assessment plan * Sepsis, vs Methimazole? * Patient was on Heparin Drip through 07/18/18 and then started on Eliquis on this date * Heparin drip for procedures * patient was on Eliquis prior but given trachestomy and now peg placement * Fibrinogen elevated * HIT and RUSTY both negative for HIT * Currently normalized 12) 13 mm Left Adrenal Nodule * As seen on CT Chest 07/16/18 * Will need outpatient follow up for cross sectional imaging for better characterization 13) Hypernatremia-->resolved * Free water 250 ml 3x/day via OGT * Na now normal 14) LLE DVT * Heparin drip changed to Eliquis 2.5 mg 2x/day 07/18/18 and then patient placed back on Heparin Drip 07/21/18 for pending Tracheostomy on 07/24/18 * Acute thrombosis of the left common femoral and femoral veins with severe reduction of the venous return on 07/18/18 venous doppler 15) Prophylactic measure * Protonix 40mg PO BID * Eliquis 2.5 mg PO BID which has been changed back to Heparin Drip for Tracheostomy 07/24/18; now allows for peg placement with GI; c/w heparin drip until procedures are completed * Bilateral SCDs * Glucerna Feedings via OGT * Subclavian line 07/14/18 * Off precedex * On morphine PRN s/p trachestomy POD 3 Disposition; Patient underwent open trachoestomy four days ago and status post p eg placement two days ago. off Heparin drip for thoracentesis which is cancelled. Patient is on IV abx for pneumonia and urinary tract infection.
[2018-07-28] MEDS: Pantoprazole 40 mg Susp UD PO SCH (09:59)
[2018-07-28] MEDS: Propranolol 5 mg Tab PO SCH ×3 (09:59→17:52)
[2018-07-28] MEDS: Multiple Vitamins Oral Solution PO SCH (10:00)
--- NOTE | 2018-07-28 10:14 | CP.CCUPN ---
<Brayan Gonzalez - Last Filed: 07/28/18 14:55> CCU Subjective - Physician Review Events Since Last Encounter (Free Text): 07/28/18 12:54 No acute events overnight. Subjective (Free Text): 07/28/18 12:54 PGY1 Critical Care Progress Note for Olivia Bassett Patient seen at bedside this morning. Patient is off sedation and is responsive to name and able to follow 1-step commands. Patient is currently with PEG and Tracheostomy. No bleeding. No acute issues. ROS could not be obtained due to clinical condition. 07/28/18 12:55 Critical Care Time Spent (in minutes): 35 CCU Objective - Vital Signs / Intake & Output Vital Signs (Last 4 hours): Vital Signs Temp Pulse Resp BP Pulse Ox 07/28/18 09:59 120/65 07/28/18 09:03 84 10 L 117/59 L 100 07/28/18 09:00 85 12 100 07/28/18 08:33 91 H 16 118/58 L 100 07/28/18 08:03 92 H 14 130/59 L 100 07/28/18 08:00 99.3 F 92 H 17 100 07/28/18 07:33 95 H 18 126/71 99 07/28/18 07:03 90 18 129/64 100 07/28/18 07:00 85 11 L 98 07/28/18 06:33 87 10 L 120/64 97 Intake and Output (Last 8hrs): Intake & Output 07/27/18 07/28/18 07/28/18 22:59 06:59 14:59 Intake Total 507.6 658.0 226.4 Output Total 825 190 300 Balance -317.4 468.0 -73.6 Weight 103 lb 4.8 oz Intake: IV 19 Intake, IV Amount 257.6 359.0 146.4 Left Antecubital 47.6 47.6 Right Distal Port 0 71.4 56.4 Subclavian Right Proximal Port 210 240 90 Subclavian Tube Feeding 150 280 80 Other 100 Output: Urine 825 190 300 Urethral (Mcintyre) 825 190 300 Stool 0 Oral Regurgitation 0 - Physical Exam Head: Positive for: Atraumatic, Normocephalic Pupils: Positive for: PERRL. Negative for: Sluggish, Pinpoint Extroacular Muscles: Positive for: EOMI. Negative for: Gaze Palsy Conjunctiva: Positive for: Normal. Negative for: Injected, Icteric Mouth: Positive for: Moist Mucous Membranes Nose (External): Positive for: Atraumatic. Negative for: Abrasion, Contusion, Laceration Nose (Internal): Positive for: No Active Bleeding. Negative for: Epistaxis Neck: Positive for: Normal Range of Motion, Trachea Midline. Negative for: JVD Respiratory/Chest: Positive for: Good Air Exchange, Rhonchi (mild ronchi in bilateral bases), Other (intubated and ventilated). Negative for: Wheezes, Rales Cardiovascular: Positive for: Normal S1, S2, Peripheal Pulses Present, Tachycardic. Negative for: Regular Rate and Rhythm Abdomen: Positive for: Normal Bowel Sounds. Negative for: Tenderness, Distention, Rebound, Guarding Upper Extremity: Positive for: Normal Inspection, NORMAL PULSES. Negative for: Cyanosis, Edema Lower Extremity: Positive for: Normal Inspection. Negative for: Edema, CALF TENDERNESS Neurological: Positive for: Other (weaning from sedation, intermittently opens eyes and tracks staff across room, but minimal spontaneous movements, not following verbal or pantomimed commands) Skin: Positive for: Warm, Dry, Normal Color Psychiatric: Positive for: Alert - Medications Active Medications: Active Medications Generic Name Dose Route Start Last Admin Trade Name Freq PRN Reason Stop Dose Admin Albuterol/Ipratropium 3 ml 07/14/18 20:00 07/28/18 07:30 Duoneb 3 Mg/0.5 Mg (3 Ml) Ud INH 3 ml RQ6 MANOLO Administration Ascorbic Acid 1,000 mg 07/24/18 10:00 07/28/18 09:57 Vitamin C 500 Mg Tab NG 1,000 mg DAILY MANOLO Administration Aspirin 81 mg 07/17/18 10:00 07/28/18 09:59 Aspirin Chewable GT 81 mg DAILY MANOLO Administration Ergocalciferol 1 cap 07/11/18 12:45 07/25/18 14:15 Drisdol 50,000 Intl Units Cap PO 1 cap Q7D MANOLO Administration Furosemide 20 mg 07/17/18 18:00 07/28/18 09:59 Lasix IVP 20 mg BID MANOLO Administration Heparin Sodium/Sodium Chloride 25,000 units in 250 mls @ 6.804 mls/hr 07/21/18 10:19 07/26/18 16:02 Heparin 32598 Units/250ml 1/2 Normal Saline IV 6.804 mls/hr .Q24H PRN Administration PROTOCOL Protocol 12 UNITS/KG/HR Norepinephrine Bitartrate 4 mg 254 mls @ 19.05 mls/hr 07/26/18 17:57 07/28/18 03:45 / Sodium Chloride IV 4.93 mcg/min .[id number] PRN 18.8 mls/hr TITRATE PER MD ORDER Titration Protocol 5 MCG/MIN Insulin Aspart 0 unit 07/11/18 08:28 07/28/18 06:13 Novolog SC 2 units Q6 MANOLO Administration Protocol Insulin Glargine 20 unit 07/17/18 09:46 07/24/18 22:13 Lantus SC 20 u Q12 MANOLO Administration Lactobacillus Acidophilus 1 cap 07/08/18 20:00 07/28/18 08:14 Bacid Acidophilus PO 1 cap Q12H MANOLO Administration Methimazole 20 mg 07/27/18 14:00 07/28/18 06:14 Tapazole PO 20 mg Q8 MANOLO Administration Multivitamins/Vitamin C 5 ml 07/24/18 10:00 07/28/18 10:00 Multi-Delyn Liquid PO 5 ml DAILY MANOLO Administration Pantoprazole Sodium 40 mg 07/20/18 10:00 07/28/18 09:59 Protonix Susp PO 40 mg DAILY MANOLO Administration Propranolol HCl 5 mg 07/27/18 10:00 07/28/18 09:59 Inderal PO 5 mg TID MANOLO Administration Rosuvastatin Calcium 2.5 mg 07/13/18 22:00 07/27/18 21:19 Crestor PO 2.5 mg HS MANOLO Administration Valproate Sodium 500 mg 07/28/18 10:00 Depakene Cap PO BID MANOLO - Patient Studies Lab Studies: Lab Studies 07/28/18 07/28/18 07/28/18 Range/Units 06:19 06:19 06:19 WBC 6.3 (4.8-10.8) K/uL RBC 2.88 L (3.80-5.20) Mil/uL Hgb 8.5 L (11.0-16.0) g/dL Hct 25.5 L (34.0-47.0) % MCV 88.5 (81.0-99.0) fL MCH 29.3 (27.0-31.0) pg MCHC 33.2 (33.0-37.0) g/dL RDW 14.8 H (11.5-14.5) % Plt Count 267 (130-400) K/uL MPV 9.0 (7.2-11.7) fL Neut % (Auto) 52.6 (50.0-75.0) % Lymph % (Auto) 28.0 (20.0-40.0) % [place] % (Auto) 14.0 H (0.0-10.0) % Eos % (Auto) 4.5 H (0.0-4.0) % Baso % (Auto) 0.9 (0.0-2.0) % Neut # (Auto) 3.3 (1.8-7.0) K/uL Lymph # (Auto) 1.8 (1.0-4.3) K/uL [place] # (Auto) 0.9 H (0.0-0.8) K/uL Eos # (Auto) 0.3 (0.0-0.7) K/uL Baso # (Auto) 0.1 (0.0-0.2) K/uL PT 17.7 H (9.7-12.2) SECONDS INR 1.6 APTT 52 H (21-34) SECONDS Puncture Site pCO2 (35-45) mm/Hg pO2 (80-100) mm/Hg HCO3 (21-28) mmol/L ABG pH (7.35-7.45) ABG Total CO2 (22-28) mmol/L ABG O2 Saturation (95-98) % ABG Base Excess (-2.0-3.0) mmol/L ABG Hemoglobin (11.7-17.4) g/dL ABG Carboxyhemoglobin (0.5-1.5) % POC ABG HHb (Measured) (0.0-5.0) % ABG Methemoglobin (0.0-3.0) % Kevon Test A-a O2 Difference mm/Hg Respiratory Index Hgb O2 Saturation (95.0-98.0) % Vent Mode Mechanical Rate FiO2 % Tidal Volume PEEP Sodium 136 (132-148) mmol/L Potassium 4.1 (3.6-5.2) mmol/L Chloride 104 (98-107) mmol/L Carbon Dioxide 25 (22-30) mmol/L Anion Gap 11 (10-20) BUN 18 H (7-17) mg/dL Creatinine 1.2 (0.7-1.2) mg/dL Est GFR ( Amer) 57 Est GFR (Non-Af Amer) 47 POC Glucose (mg/dL) (65-110) mg/dL Random Glucose 141 H (65-105) mg/dL Calcium 8.3 L (8.6-10.4) mg/dl Phosphorus 3.2 (2.5-4.5) mg/dL Magnesium 2.3 (1.6-2.3) mg/dL Total Bilirubin 0.7 (0.2-1.3) mg/dL AST 20 (14-36) U/L ALT 28 (9-52) U/L Alkaline Phosphatase 223 H (38-126) U/L Total Protein 6.2 L (6.3-8.3) g/dL Albumin 2.8 L (3.5-5.0) g/dL Globulin 3.4 (2.2-3.9) gm/dL Albumin/Globulin Ratio 0.8 L (1.0-2.1) Free T4 (0.78-2.19) ng/dL Free T3 pg/mL (2.77-5.27) pg/mL TSH 3rd Generation (0.46-4.68) mIU/L 07/28/18 07/28/18 07/27/18 Range/Units 05:00 04:15 23:29 WBC (4.8-10.8) K/uL RBC (3.80-5.20) Mil/uL Hgb (11.0-16.0) g/dL Hct (34.0-47.0) % MCV (81.0-99.0) fL MCH (27.0-31.0) pg MCHC (33.0-37.0) g/dL RDW (11.5-14.5) % Plt Count (130-400) K/uL MPV (7.2-11.7) fL Neut % (Auto) (50.0-75.0) % Lymph % (Auto) (20.0-40.0) % [place] % (Auto) (0.0-10.0) % Eos % (Auto) (0.0-4.0) % Baso % (Auto) (0.0-2.0) % Neut # (Auto) (1.8-7.0) K/uL Lymph # (Auto) (1.0-4.3) K/uL [place] # (Auto) (0.0-0.8) K/uL Eos # (Auto) (0.0-0.7) K/uL Baso # (Auto) (0.0-0.2) K/uL PT (9.7-12.2) SECONDS INR APTT (21-34) SECONDS Puncture Site Rr pCO2 33 L (35-45) mm/Hg pO2 132 H (80-100) mm/Hg HCO3 25.4 (21-28) mmol/L ABG pH 7.47 H (7.35-7.45) ABG Total CO2 25.0 (22-28) mmol/L ABG O2 Saturation 99.7 H (95-98) % ABG Base Excess 0.6 (-2.0-3.0) mmol/L ABG Hemoglobin 9.8 L (11.7-17.4) g/dL ABG Carboxyhemoglobin 2.2 H (0.5-1.5) % POC ABG HHb (Measured) 0.3 (0.0-5.0) % ABG Methemoglobin 0.9 (0.0-3.0) % Kevon Test Pos A-a O2 Difference 112.0 mm/Hg Respiratory Index 0.8 Hgb O2 Saturation 96.6 (95.0-98.0) % Vent Mode Prvc Mechanical Rate 10 FiO2 40.0 % Tidal Volume 400 PEEP 5 Sodium (132-148) mmol/L Potassium (3.6-5.2) mmol/L Chloride (98-107) mmol/L Carbon Dioxide (22-30) mmol/L Anion Gap (10-20) BUN (7-17) mg/dL Creatinine (0.7-1.2) mg/dL Est GFR ( Amer) Est GFR (Non-Af Amer) POC Glucose (mg/dL) 172 H 152 H (65-110) mg/dL Random Glucose (65-105) mg/dL Calcium (8.6-10.4) mg/dl Phosphorus (2.5-4.5) mg/dL Magnesium (1.6-2.3) mg/dL Total Bilirubin (0.2-1.3) mg/dL AST (14-36) U/L ALT (9-52) U/L Alkaline Phosphatase (38-126) U/L Total Protein (6.3-8.3) g/dL Albumin (3.5-5.0) g/dL Globulin (2.2-3.9) gm/dL Albumin/Globulin Ratio (1.0-2.1) Free T4 (0.78-2.19) ng/dL Free T3 pg/mL (2.77-5.27) pg/mL TSH 3rd Generation (0.46-4.68) mIU/L 07/27/18 07/27/18 07/27/18 Range/Units 17:36 13:06 13:06 WBC (4.8-10.8) K/uL RBC (3.80-5.20) Mil/uL Hgb (11.0-16.0) g/dL Hct (34.0-47.0) % MCV (81.0-99.0) fL MCH (27.0-31.0) pg MCHC (33.0-37.0) g/dL RDW (11.5-14.5) % Plt Count (130-400) K/uL MPV (7.2-11.7) fL Neut % (Auto) (50.0-75.0) % Lymph % (Auto) (20.0-40.0) % [place] % (Auto) (0.0-10.0) % Eos % (Auto) (0.0-4.0) % Baso % (Auto) (0.0-2.0) % Neut # (Auto) (1.8-7.0) K/uL Lymph # (Auto) (1.0-4.3) K/uL [place] # (Auto) (0.0-0.8) K/uL Eos # (Auto) (0.0-0.7) K/uL Baso # (Auto) (0.0-0.2) K/uL PT (9.7-12.2) SECONDS INR APTT (21-34) SECONDS Puncture Site pCO2 (35-45) mm/Hg pO2 (80-100) mm/Hg HCO3 (21-28) mmol/L ABG pH (7.35-7.45) ABG Total CO2 (22-28) mmol/L ABG O2 Saturation (95-98) % ABG Base Excess (-2.0-3.0) mmol/L ABG Hemoglobin (11.7-17.4) g/dL ABG Carboxyhemoglobin (0.5-1.5) % POC ABG HHb (Measured) (0.0-5.0) % ABG Methemoglobin (0.0-3.0) % Kevon Test A-a O2 Difference mm/Hg Respiratory Index Hgb O2 Saturation (95.0-98.0) % Vent Mode Mechanical Rate FiO2 % Tidal Volume PEEP Sodium (132-148) mmol/L Potassium (3.6-5.2) mmol/L Chloride (98-107) mmol/L Carbon Dioxide (22-30) mmol/L Anion Gap (10-20) BUN (7-17) mg/dL Creatinine (0.7-1.2) mg/dL Est GFR ( Amer) Est GFR (Non-Af Amer) POC Glucose (mg/dL) 164 H (65-110) mg/dL Random Glucose (65-105) mg/dL Calcium (8.6-10.4) mg/dl Phosphorus (2.5-4.5) mg/dL Magnesium (1.6-2.3) mg/dL Total Bilirubin (0.2-1.3) mg/dL AST (14-36) U/L ALT (9-52) U/L Alkaline Phosphatase (38-126) U/L Total Protein (6.3-8.3) g/dL Albumin (3.5-5.0) g/dL Globulin (2.2-3.9) gm/dL Albumin/Globulin Ratio (1.0-2.1) Free T4 3.55 H (0.78-2.19) ng/dL Free T3 pg/mL 4.26 (2.77-5.27) pg/mL TSH 3rd Generation < 0.02 L (0.46-4.68) mIU/L 10/25/18 Range/Units 11:47 WBC (4.8-10.8) K/uL RBC (3.80-5.20) Mil/uL Hgb (11.0-16.0) g/dL Hct (34.0-47.0) % MCV (81.0-99.0) fL MCH (27.0-31.0) pg MCHC (33.0-37.0) g/dL RDW (11.5-14.5) % Plt Count (130-400) K/uL MPV (7.2-11.7) fL Neut % (Auto) (50.0-75.0) % Lymph % (Auto) (20.0-40.0) % [place] % (Auto) (0.0-10.0) % Eos % (Auto) (0.0-4.0) % Baso % (Auto) (0.0-2.0) % Neut # (Auto) (1.8-7.0) K/uL Lymph # (Auto) (1.0-4.3) K/uL [place] # (Auto) (0.0-0.8) K/uL Eos # (Auto) (0.0-0.7) K/uL Baso # (Auto) (0.0-0.2) K/uL PT (9.7-12.2) SECONDS INR APTT (21-34) SECONDS Puncture Site pCO2 (35-45) mm/Hg pO2 (80-100) mm/Hg HCO3 (21-28) mmol/L ABG pH (7.35-7.45) ABG Total CO2 (22-28) mmol/L ABG O2 Saturation (95-98) % ABG Base Excess (-2.0-3.0) mmol/L ABG Hemoglobin (11.7-17.4) g/dL ABG Carboxyhemoglobin (0.5-1.5) % POC ABG HHb (Measured) (0.0-5.0) % ABG Methemoglobin (0.0-3.0) % Kevon Test A-a O2 Difference mm/Hg Respiratory Index Hgb O2 Saturation (95.0-98.0) % Vent Mode Mechanical Rate FiO2 % Tidal Volume PEEP Sodium (132-148) mmol/L Potassium (3.6-5.2) mmol/L Chloride (98-107) mmol/L Carbon Dioxide (22-30) mmol/L Anion Gap (10-20) BUN (7-17) mg/dL Creatinine (0.7-1.2) mg/dL Est GFR ( Amer) Est GFR (Non-Af Amer) POC Glucose (mg/dL) 143 H (65-110) mg/dL Random Glucose (65-105) mg/dL Calcium (8.6-10.4) mg/dl Phosphorus (2.5-4.5) mg/dL Magnesium (1.6-2.3) mg/dL Total Bilirubin (0.2-1.3) mg/dL AST (14-36) U/L ALT (9-52) U/L Alkaline Phosphatase (38-126) U/L Total Protein (6.3-8.3) g/dL Albumin (3.5-5.0) g/dL Globulin (2.2-3.9) gm/dL Albumin/Globulin Ratio (1.0-2.1) Free T4 (0.78-2.19) ng/dL Free T3 pg/mL (2.77-5.27) pg/mL TSH 3rd Generation (0.46-4.68) mIU/L Laboratory Results - last 24 hr 07/27/18 07/27/18 07/27/18 11:47 13:06 13:06 WBC RBC Hgb Hct MCV MCH MCHC RDW Plt Count MPV Neut % (Auto) Lymph % (Auto) [place] % (Auto) Eos % (Auto) Baso % (Auto) Neut # (Auto) Lymph # (Auto) [place] # (Auto) Eos # (Auto) Baso # (Auto) PT INR APTT Puncture Site pCO2 pO2 HCO3 ABG pH ABG Total CO2 ABG O2 Saturation ABG Base Excess ABG Hemoglobin ABG Carboxyhemoglobin POC ABG HHb (Measured) ABG Methemoglobin Kevon Test A-a O2 Difference Respiratory Index Hgb O2 Saturation Vent Mode Mechanical Rate FiO2 Tidal Volume PEEP Sodium Potassium Chloride Carbon Dioxide Anion Gap BUN Creatinine Est GFR ( Amer) Est GFR (Non-Af Amer) POC Glucose (mg/dL) 143 H Random Glucose Calcium Phosphorus Magnesium Total Bilirubin AST ALT Alkaline Phosphatase Total Protein Albumin Globulin Albumin/Globulin Ratio Free T4 3.55 H Free T3 pg/mL 4.26 TSH 3rd Generation < 0.02 L 07/27/18 07/27/18 07/28/18 17:36 23:29 04:15 WBC RBC Hgb Hct MCV MCH MCHC RDW Plt Count MPV Neut % (Auto) Lymph % (Auto) [place] % (Auto) Eos % (Auto) Baso % (Auto) Neut # (Auto) Lymph # (Auto) [place] # (Auto) Eos # (Auto) Baso # (Auto) PT INR APTT Puncture Site Rr pCO2 33 L pO2 132 H HCO3 25.4 ABG pH 7.47 H ABG Total CO2 25.0 ABG O2 Saturation 99.7 H ABG Base Excess 0.6 ABG Hemoglobin 9.8 L ABG Carboxyhemoglobin 2.2 H POC ABG HHb (Measured) 0.3 ABG Methemoglobin 0.9 Kevon Test Pos A-a O2 Difference 112.0 Respiratory Index 0.8 Hgb O2 Saturation 96.6 Vent Mode Prvc Mechanical Rate 10 FiO2 40.0 Tidal Volume 400 PEEP 5 Sodium Potassium Chloride Carbon Dioxide Anion Gap BUN Creatinine Est GFR ( Amer) Est GFR (Non-Af Amer) POC Glucose (mg/dL) 164 H 152 H Random Glucose Calcium Phosphorus Magnesium Total Bilirubin AST ALT Alkaline Phosphatase Total Protein Albumin Globulin Albumin/Globulin Ratio Free T4 Free T3 pg/mL TSH 3rd Generation 07/28/18 07/28/18 07/28/18 05:00 06:19 06:19 WBC 6.3 RBC 2.88 L Hgb 8.5 L Hct 25.5 L MCV 88.5 MCH 29.3 MCHC 33.2 RDW 14.8 H Plt Count 267 MPV 9.0 Neut % (Auto) 52.6 Lymph % (Auto) 28.0 [place] % (Auto) 14.0 H Eos % (Auto) 4.5 H Baso % (Auto) 0.9 Neut # (Auto) 3.3 Lymph # (Auto) 1.8 [place] # (Auto) 0.9 H Eos # (Auto) 0.3 Baso # (Auto) 0.1 PT INR APTT Puncture Site pCO2 pO2 HCO3 ABG pH ABG Total CO2 ABG O2 Saturation ABG Base Excess ABG Hemoglobin ABG Carboxyhemoglobin POC ABG HHb (Measured) ABG Methemoglobin Kevon Test A-a O2 Difference Respiratory Index Hgb O2 Saturation Vent Mode Mechanical Rate FiO2 Tidal Volume PEEP Sodium 136 Potassium 4.1 Chloride 104 Carbon Dioxide 25 Anion Gap 11 BUN 18 H Creatinine 1.2 Est GFR ( Amer) 57 Est GFR (Non-Af Amer) 47 POC Glucose (mg/dL) 172 H Random Glucose 141 H Calcium 8.3 L Phosphorus 3.2 Magnesium 2.3 Total Bilirubin 0.7 AST 20 ALT 28 Alkaline Phosphatase 223 H Total Protein 6.2 L Albumin 2.8 L Globulin 3.4 Albumin/Globulin Ratio 0.8 L Free T4 Free T3 pg/mL TSH 3rd Generation 07/28/18 06:19 WBC RBC Hgb Hct MCV MCH MCHC RDW Plt Count MPV Neut % (Auto) Lymph % (Auto) [place] % (Auto) Eos % (Auto) Baso % (Auto) Neut # (Auto) Lymph # (Auto) [place] # (Auto) Eos # (Auto) Baso # (Auto) PT 17.7 H INR 1.6 APTT 52 H Puncture Site pCO2 pO2 HCO3 ABG pH ABG Total CO2 ABG O2 Saturation ABG Base Excess ABG Hemoglobin ABG Carboxyhemoglobin POC ABG HHb (Measured) ABG Methemoglobin Kevon Test A-a O2 Difference Respiratory Index Hgb O2 Saturation Vent Mode Mechanical Rate FiO2 Tidal Volume PEEP Sodium Potassium Chloride Carbon Dioxide Anion Gap BUN Creatinine Est GFR ( Amer) Est GFR (Non-Af Amer) POC Glucose (mg/dL) Random Glucose Calcium Phosphorus Magnesium Total Bilirubin AST ALT Alkaline Phosphatase Total Protein Albumin Globulin Albumin/Globulin Ratio Free T4 Free T3 pg/mL TSH 3rd Generation Fingerstick Blood Sugar Results: 172 Review of Systems - Review of Systems Systems not reviewed;Unavailable: Acuity of Condition - Musculoskeletal Musculoskeletal: As Par HPI Critical Care Progress Note - Nutrition Nutrition: Nutrition Category Date Time Status NPO Diet [DIET] Diets 07/25/18 Breakfast Active Assessment/Plan - Assessment and Plan (Free Text) Assessment: This is a 52 yo female with PMH of DM2 and hypercholesterolemia who presented to with cough, post-tussive emesis, and malaise x2-3 weeks. She was admitted to the ICU for respiratory failure and acute renal failure. Of note, patient was CODE BLUE on 07/10 (V-tach). Remains intubated after failing extubation, as patient vomited just hours after extubation. Currently with tracheostomy (performed by Dr. Melchor.) Patient is hemodynamically stable, and is status-post PEG placement with Dr. Murray and GI Fellow Dr. Amaya. Plan Neuro Anoxic brain injury - Hemodynamically stable - Precedex discontinued Agitation - valproic acid 500mg liquid BID Pulm Chronic Hypoxic Respiratory Failure secondary to pulmonary congestion, renal failure * Status-post trach * CXR shows congestion and R lower lobe infiltrate * Continue bronchodilators * C-PAP trials daily - today tolerated 4 hours C-PAP - Goal SaO2 > 92% and paO2 > 55 * FiO2 titrated down to 30% (for goal PO2/FiO2 ratio > 300) * CT angiogram obtained 07/26 to rule out PE -- Negative for PE. - Duonebs 2 ml INH RQ4 - Status-post tracheostomy 07/[address] Melchor - CXR official report (07/25): worsening infiltrates, satisfactory position of recently placed tracheostomy device, Satisfactory position of remaining support apparatus including venous access catheter and recently placed nasogastric tube CV Hypotension - Blood pressure 82/42 --> 111/67 - Levophed titrated to keep MAP > 65 - Start Midodrine - Cardiac arrest from unknown etiology - Cardiology consulted. Appreciate recs. - Repeat ECHO from shows left ventricular thrombus; - Doppler show LLE DVT, right cephalic vein thrombus - Heparin drip continue - Continue daily aspirin 81 mg, crestor 2.5 mg PO HS - Discontinued propranolol 5mg PO TID CHADsVASc Score= 3 * Stroke risk 3.2% per year * 4.6% risk of stroke/TIA/systemic embolism MSK - OOB as tolerated with assistance - Early Mobilization highly recommended - PT/OT - Discontinue mcintyre - Discontinue central line (right IJ) GI - Start: Vital 1.2 tube feeds Max Rate #35 - Protonix 40 mg IV daily - Dr. Murray Consulted: recommendations appreciated - Pelvic/ trasnvaginal ultrasound performed. Pending report - Patient's states patient still has regular menstrual cycles monthly - Monitor H/H Renal - Acute renal failure resolving - Avoid nephrotoxic drugs Heme: - Hgb=8.8 (down from 9.4 07/26) - No acute issues - Continue to monitor H/H Endo - ISS for coverage, q6h - Increased: Methimazole 10 mg PO TID --> Methimazole 20mg PO Q8 - FSH LH and Prolactin Pending Infectious Disease - Discontinued: Merrem 1 gm daily - Discontinued: vancomycin 1 gm daily - Negative cultures - ID following, appreciate all recs Dispo: Pending another PS/CPAP trial, tracheostomy placed 07/24 FEN: NPO, on Tube Feeds Access: Peripheral IVs, right subclavian TLC, ETT, OGT Consults: Palliative, Endo, Nephro, Cardio, Neuro, Cardio, GI Ppx: Protonix for GI, SCDs Code status: FULL Next of kin: Martina Isaacs () Prognosis: Guarded Patient seen, reviewed, and case discussed with attending, Dr. Laz Gonzalez PGY-1 <Dian Nesbitt - Last Filed: 07/28/18 16:24> CCU Objective - Vital Signs / Intake & Output Vital Signs (Last 4 hours): Vital Signs Temp Pulse Resp BP Pulse Ox 07/28/18 16:03 71 17 83/48 L 100 07/28/18 16:00 96.8 F L 72 18 100 07/28/18 15:56 70 13 90/57 L 100 07/28/18 15:55 70 15 100 07/28/18 15:03 70 13 98/56 L 99 07/28/18 15:00 68 11 L 99 07/28/18 14:33 72 12 111/63 100 07/28/18 14:09 79 16 107/64 100 07/28/18 14:03 72 15 98/47 L 99 07/28/18 14:00 82 15 108/68 92 L 07/28/18 13:41 113/63 07/28/18 13:33 80 14 113/63 99 07/28/18 13:03 80 12 118/61 96 07/28/18 13:00 81 13 99 07/28/18 12:33 73 15 106/59 L 99 Intake and Output (Last 8hrs): Intake & Output 07/28/18 07/28/18 07/28/18 06:59 14:59 22:59 Intake Total 658.0 849.4 116.2 Output Total 190 700 200 Balance 468.0 149.4 -83.8 Weight 103 lb 4.8 oz Intake: IV 19 235 Intake, IV Amount 359.0 274.4 36.2 Left Antecubital 47.6 Right Distal Port 71.4 150.4 22.6 Subclavian Right Proximal Port 240 124.0 13.6 Subclavian Tube Feeding 280 340 80 Output: Urine 190 700 200 Urethral (Mcintyre) 190 700 200 - Medications Active Medications: Active Medications Generic Name Dose Route Start Last Admin Trade Name Freq PRN Reason Stop Dose Admin Acetaminophen 650 mg 07/28/18 13:39 07/28/18 14:09 Tylenol 325mg Tab PEG 650 mg Q6 PRN Administration Pain, moderate (4-7) Ascorbic Acid 1,000 mg 07/24/18 10:00 07/28/18 09:57 Vitamin C 500 Mg Tab NG 1,000 mg DAILY MANOLO Administration Aspirin 81 mg 07/17/18 10:00 07/28/18 09:59 Aspirin Chewable GT 81 mg DAILY MANOLO Administration Ergocalciferol 1 cap 07/11/18 12:45 07/25/18 14:15 Drisdol 50,000 Intl Units Cap PO 1 cap Q7D MANOLO Administration Furosemide 20 mg 07/17/18 18:00 07/28/18 09:59 Lasix IVP 20 mg BID MANOLO Administration Heparin Sodium/Sodium Chloride 25,000 units in 250 mls @ 6.804 mls/hr 07/21/18 10:19 07/28/18 10:17 Heparin 44852 Units/250ml 1/2 Normal Saline IV 6.804 mls/hr .Q24H PRN Administration PROTOCOL Protocol 12 UNITS/KG/HR Norepinephrine Bitartrate 4 mg 254 mls @ 19.05 mls/hr 07/26/18 17:57 07/28/18 14:54 / Sodium Chloride IV 3 mcg/min .[id number] PRN 11.43 mls/hr TITRATE PER MD ORDER Titration Protocol 5 MCG/MIN Insulin Aspart 0 unit 07/11/18 08:28 07/28/18 11:44 Novolog SC 4 units Q6 MANOLO Administration Protocol Insulin Glargine 20 unit 07/17/18 09:46 07/24/18 22:13 Lantus SC 20 u Q12 MANOLO Administration Lactobacillus Acidophilus 1 cap 07/08/18 20:00 07/28/18 08:14 Bacid Acidophilus PO 1 cap Q12H MANOLO Administration Methimazole 20 mg 07/27/18 14:00 07/28/18 14:09 Tapazole PO 20 mg Q8 MANOLO Administration Midodrine 5 mg 07/28/18 18:00 Proamatine PO TID MANOLO Midodrine 5 mg 07/28/18 16:19 Proamatine PO 07/28/18 16:20 ONCE ONE Multivitamins/Vitamin C 5 ml 07/24/18 10:00 07/28/18 10:00 Multi-Delyn Liquid PO 5 ml DAILY MANOLO Administration Pantoprazole Sodium 40 mg 07/20/18 10:00 07/28/18 09:59 Protonix Susp PO 40 mg DAILY MANOLO Administration Propranolol HCl 5 mg 07/27/18 10:00 07/28/18 13:40 Inderal PO 5 mg TID MANOLO Administration Rosuvastatin Calcium 2.5 mg 07/13/18 22:00 07/27/18 21:19 Crestor PO 2.5 mg HS MANOLO Administration Valproate Sodium 500 mg 07/28/18 10:45 07/28/18 10:48 Depakene Oral Soln PEG 500 mg BID MANOLO Administration Vitamin A 1 ea 07/28/18 18:00 Vitamin A & D Oint Ud Foilpak TOP BID MANOLO - Patient Studies Lab Studies: Lab Studies 07/28/18 07/28/18 07/28/18 Range/Units 11:30 06:19 06:19 WBC (4.8-10.8) K/uL RBC (3.80-5.20) Mil/uL Hgb (11.0-16.0) g/dL Hct (34.0-47.0) % MCV (81.0-99.0) fL MCH (27.0-31.0) pg MCHC (33.0-37.0) g/dL RDW (11.5-14.5) % Plt Count (130-400) K/uL MPV (7.2-11.7) fL Neut % (Auto) (50.0-75.0) % Lymph % (Auto) (20.0-40.0) % [place] % (Auto) (0.0-10.0) % Eos % (Auto) (0.0-4.0) % Baso % (Auto) (0.0-2.0) % Neut # (Auto) (1.8-7.0) K/uL Lymph # (Auto) (1.0-4.3) K/uL [place] # (Auto) (0.0-0.8) K/uL Eos # (Auto) (0.0-0.7) K/uL Baso # (Auto) (0.0-0.2) K/uL PT 17.7 H (9.7-12.2) SECONDS INR 1.6 APTT 52 H (21-34) SECONDS Puncture Site pCO2 (35-45) mm/Hg pO2 (80-100) mm/Hg HCO3 (21-28) mmol/L ABG pH (7.35-7.45) ABG Total CO2 (22-28) mmol/L ABG O2 Saturation (95-98) % ABG Base Excess (-2.0-3.0) mmol/L ABG Hemoglobin (11.7-17.4) g/dL ABG Carboxyhemoglobin (0.5-1.5) % POC ABG HHb (Measured) (0.0-5.0) % ABG Methemoglobin (0.0-3.0) % [place] Test A-a O2 Difference mm/Hg Respiratory Index Hgb O2 Saturation (95.0-98.0) % Vent Mode Mechanical Rate FiO2 % Tidal Volume PEEP Sodium 136 (132-148) mmol/L Potassium 4.1 (3.6-5.2) mmol/L Chloride 104 (98-107) mmol/L Carbon Dioxide 25 (22-30) mmol/L Anion Gap 11 (10-20) BUN 18 H (7-17) mg/dL Creatinine 1.2 (0.7-1.2) mg/dL Est GFR ( Amer) 57 Est GFR (Non-Af Amer) 47 POC Glucose (mg/dL) 232 H (65-110) mg/dL Random Glucose 141 H (65-105) mg/dL Calcium 8.3 L (8.6-10.4) mg/dl Phosphorus 3.2 (2.5-4.5) mg/dL Magnesium 2.3 (1.6-2.3) mg/dL Total Bilirubin 0.7 (0.2-1.3) mg/dL AST 20 (14-36) U/L ALT 28 (9-52) U/L Alkaline Phosphatase 223 H (38-126) U/L Total Protein 6.2 L (6.3-8.3) g/dL Albumin 2.8 L (3.5-5.0) g/dL Globulin 3.4 (2.2-3.9) gm/dL Albumin/Globulin Ratio 0.8 L (1.0-2.1) 07/28/18 07/28/18 07/28/18 Range/Units 06:19 05:00 04:15 WBC 6.3 (4.8-10.8) K/uL RBC 2.88 L (3.80-5.20) Mil/uL Hgb 8.5 L (11.0-16.0) g/dL Hct 25.5 L (34.0-47.0) % MCV 88.5 (81.0-99.0) fL MCH 29.3 (27.0-31.0) pg MCHC 33.2 (33.0-37.0) g/dL RDW 14.8 H (11.5-14.5) % Plt Count 267 (130-400) K/uL MPV 9.0 (7.2-11.7) fL Neut % (Auto) 52.6 (50.0-75.0) % Lymph % (Auto) 28.0 (20.0-40.0) % [place] % (Auto) 14.0 H (0.0-10.0) % Eos % (Auto) 4.5 H (0.0-4.0) % Baso % (Auto) 0.9 (0.0-2.0) % Neut # (Auto) 3.3 (1.8-7.0) K/uL Lymph # (Auto) 1.8 (1.0-4.3) K/uL [place] # (Auto) 0.9 H (0.0-0.8) K/uL Eos # (Auto) 0.3 (0.0-0.7) K/uL Baso # (Auto) 0.1 (0.0-0.2) K/uL PT (9.7-12.2) SECONDS INR APTT (21-34) SECONDS Puncture Site Rr pCO2 33 L (35-45) mm/Hg pO2 132 H (80-100) mm/Hg HCO3 25.4 (21-28) mmol/L ABG pH 7.47 H (7.35-7.45) ABG Total CO2 25.0 (22-28) mmol/L ABG O2 Saturation 99.7 H (95-98) % ABG Base Excess 0.6 (-2.0-3.0) mmol/L ABG Hemoglobin 9.8 L (11.7-17.4) g/dL ABG Carboxyhemoglobin 2.2 H (0.5-1.5) % POC ABG HHb (Measured) 0.3 (0.0-5.0) % ABG Methemoglobin 0.9 (0.0-3.0) % Kevon Test Pos A-a O2 Difference 112.0 mm/Hg Respiratory Index 0.8 Hgb O2 Saturation 96.6 (95.0-98.0) % Vent Mode Prvc Mechanical Rate 10 FiO2 40.0 % Tidal Volume 400 PEEP 5 Sodium (132-148) mmol/L Potassium (3.6-5.2) mmol/L Chloride (98-107) mmol/L Carbon Dioxide (22-30) mmol/L Anion Gap (10-20) BUN (7-17) mg/dL Creatinine (0.7-1.2) mg/dL Est GFR ( Amer) Est GFR (Non-Af Amer) POC Glucose (mg/dL) 172 H (65-110) mg/dL Random Glucose (65-105) mg/dL Calcium (8.6-10.4) mg/dl Phosphorus (2.5-4.5) mg/dL Magnesium (1.6-2.3) mg/dL Total Bilirubin (0.2-1.3) mg/dL AST (14-36) U/L ALT (9-52) U/L Alkaline Phosphatase (38-126) U/L Total Protein (6.3-8.3) g/dL Albumin (3.5-5.0) g/dL Globulin (2.2-3.9) gm/dL Albumin/Globulin Ratio (1.0-2.1) 07/27/18 07/27/18 Range/Units 23:29 17:36 WBC (4.8-10.8) K/uL RBC (3.80-5.20) Mil/uL Hgb (11.0-16.0) g/dL Hct (34.0-47.0) % MCV (81.0-99.0) fL MCH (27.0-31.0) pg MCHC (33.0-37.0) g/dL RDW (11.5-14.5) % Plt Count (130-400) K/uL MPV (7.2-11.7) fL Neut % (Auto) (50.0-75.0) % Lymph % (Auto) (20.0-40.0) % [place] % (Auto) (0.0-10.0) % Eos % (Auto) (0.0-4.0) % Baso % (Auto) (0.0-2.0) % Neut # (Auto) (1.8-7.0) K/uL Lymph # (Auto) (1.0-4.3) K/uL [place] # (Auto) (0.0-0.8) K/uL Eos # (Auto) (0.0-0.7) K/uL Baso # (Auto) (0.0-0.2) K/uL PT (9.7-12.2) SECONDS INR APTT (21-34) SECONDS Puncture Site pCO2 (35-45) mm/Hg pO2 (80-100) mm/Hg HCO3 (21-28) mmol/L ABG pH (7.35-7.45) ABG Total CO2 (22-28) mmol/L ABG O2 Saturation (95-98) % ABG Base Excess (-2.0-3.0) mmol/L ABG Hemoglobin (11.7-17.4) g/dL ABG Carboxyhemoglobin (0.5-1.5) % POC ABG HHb (Measured) (0.0-5.0) % ABG Methemoglobin (0.0-3.0) % Kevon Test A-a O2 Difference mm/Hg Respiratory Index Hgb O2 Saturation (95.0-98.0) % Vent Mode Mechanical Rate FiO2 % Tidal Volume PEEP Sodium (132-148) mmol/L Potassium (3.6-5.2) mmol/L Chloride (98-107) mmol/L Carbon Dioxide (22-30) mmol/L Anion Gap (10-20) BUN (7-17) mg/dL Creatinine (0.7-1.2) mg/dL Est GFR ( Amer) Est GFR (Non-Af Amer) POC Glucose (mg/dL) 152 H 164 H (65-110) mg/dL Random Glucose (65-105) mg/dL Calcium (8.6-10.4) mg/dl Phosphorus (2.5-4.5) mg/dL Magnesium (1.6-2.3) mg/dL Total Bilirubin (0.2-1.3) mg/dL AST (14-36) U/L ALT (9-52) U/L Alkaline Phosphatase (38-126) U/L Total Protein (6.3-8.3) g/dL Albumin (3.5-5.0) g/dL Globulin (2.2-3.9) gm/dL Albumin/Globulin Ratio (1.0-2.1) Laboratory Results - last 24 hr 07/27/18 07/27/18 07/28/18 17:36 23:29 04:15 WBC RBC Hgb Hct MCV MCH MCHC RDW Plt Count MPV Neut % (Auto) Lymph % (Auto) [place] % (Auto) Eos % (Auto) Baso % (Auto) Neut # (Auto) Lymph # (Auto) [place] # (Auto) Eos # (Auto) Baso # (Auto) PT INR APTT Puncture Site Rr pCO2 33 L pO2 132 H HCO3 25.4 ABG pH 7.47 H ABG Total CO2 25.0 ABG O2 Saturation 99.7 H ABG Base Excess 0.6 ABG Hemoglobin 9.8 L ABG Carboxyhemoglobin 2.2 H POC ABG HHb (Measured) 0.3 ABG Methemoglobin 0.9 [place]on Test Pos A-a O2 Difference 112.0 Respiratory Index 0.8 Hgb O2 Saturation 96.6 Vent Mode Prvc Mechanical Rate 10 FiO2 40.0 Tidal Volume 400 PEEP 5 Sodium Potassium Chloride Carbon Dioxide Anion Gap BUN Creatinine Est GFR ( Amer) Est GFR (Non-Af Amer) POC Glucose (mg/dL) 164 H 152 H Random Glucose Calcium Phosphorus Magnesium Total Bilirubin AST ALT Alkaline Phosphatase Total Protein Albumin Globulin Albumin/Globulin Ratio 07/28/18 07/28/18 07/28/18 05:00 06:19 06:19 WBC 6.3 RBC 2.88 L Hgb 8.5 L Hct 25.5 L MCV 88.5 MCH 29.3 MCHC 33.2 RDW 14.8 H Plt Count 267 MPV 9.0 Neut % (Auto) 52.6 Lymph % (Auto) 28.0 [place] % (Auto) 14.0 H Eos % (Auto) 4.5 H Baso % (Auto) 0.9 Neut # (Auto) 3.3 Lymph # (Auto) 1.8 [place] # (Auto) 0.9 H Eos # (Auto) 0.3 Baso # (Auto) 0.1 PT INR APTT Puncture Site pCO2 pO2 HCO3 ABG pH ABG Total CO2 ABG O2 Saturation ABG Base Excess ABG Hemoglobin ABG Carboxyhemoglobin POC ABG HHb (Measured) ABG Methemoglobin Kevon Test A-a O2 Difference Respiratory Index Hgb O2 Saturation Vent Mode Mechanical Rate FiO2 Tidal Volume PEEP Sodium 136 Potassium 4.1 Chloride 104 Carbon Dioxide 25 Anion Gap 11 BUN 18 H Creatinine 1.2 Est GFR ( Amer) 57 Est GFR (Non-Af Amer) 47 POC Glucose (mg/dL) 172 H Random Glucose 141 H Calcium 8.3 L Phosphorus 3.2 Magnesium 2.3 Total Bilirubin 0.7 AST 20 ALT 28 Alkaline Phosphatase 223 H Total Protein 6.2 L Albumin 2.8 L Globulin 3.4 Albumin/Globulin Ratio 0.8 L 07/28/18 07/28/18 06:19 11:30 WBC RBC Hgb Hct MCV MCH MCHC RDW Plt Count MPV Neut % (Auto) Lymph % (Auto) [place] % (Auto) Eos % (Auto) Baso % (Auto) Neut # (Auto) Lymph # (Auto) [place] # (Auto) Eos # (Auto) Baso # (Auto) PT 17.7 H INR 1.6 APTT 52 H Puncture Site pCO2 pO2 HCO3 ABG pH ABG Total CO2 ABG O2 Saturation ABG Base Excess ABG Hemoglobin ABG Carboxyhemoglobin POC ABG HHb (Measured) ABG Methemoglobin Kevon Test A-a O2 Difference Respiratory Index Hgb O2 Saturation Vent Mode Mechanical Rate FiO2 Tidal Volume PEEP Sodium Potassium Chloride Carbon Dioxide Anion Gap BUN Creatinine Est GFR ( Amer) Est GFR (Non-Af Amer) POC Glucose (mg/dL) 232 H Random Glucose Calcium Phosphorus Magnesium Total Bilirubin AST ALT Alkaline Phosphatase Total Protein Albumin Globulin Albumin/Globulin Ratio Critical Care Progress Note - Nutrition Nutrition: Nutrition Category Date Time Status NPO Diet [DIET] Diets 07/25/18 Breakfast Active Assessment/Plan - Assessment and Plan (Free Text) Plan: Patient seen and examined at bedside. Patient with chronic respiratory failure s/p trach/peg -tolerating CPAP -on low dose pressors -titrate off pressos -CPAP trials today 4 hours -PT/OT -oob to chair -following commands in her samish language - Noelle Above resident documents my clinical management and physical exam cc time 35 minutes - Date & Time Date: 07/28/18 Time: 16:23
[2018-07-28] MEDS: Heparin25000 units/250ml 1/2NS 25,000 UNITS/250 ML BAG IV PRN (10:17)
[2018-07-28] MEDS: Valproic Acid 250 mg/5 ml UD Cup PEG SCH ×2 (10:48→17:51)
[2018-07-28] MEDS: Vitamins A & D Oint UD Foilpak TOP SCH (18:00)
--- NOTE | 2018-07-28 18:32 | CP.PCM.PN ---
Subjective - Date & Time of Evaluation Date of Evaluation: 07/28/18 Time of Evaluation: 08:00 - Subjective Subjective: more alert afebrile In NAD Objective - Vital Signs/Intake and Output Vital Signs (last 24 hours): Temp Pulse Resp BP Pulse Ox 98.1 F 69 12 104/56 L 100 07/28/18 18:25 07/28/18 18:25 07/28/18 18:25 07/28/18 18:25 07/28/18 18:14 Intake and Output: 07/28/18 07/28/18 06:59 18:59 Intake Total 958.4 1428.4 Output Total 390 1850 Balance 568.4 -421.6 - Medications Medications: Current Medications Acetaminophen (Tylenol 325mg Tab) 650 mg PEG Q6 PRN PRN Reason: Pain, moderate (4-7) Last Admin: 07/28/18 14:09 Dose: 650 mg Albuterol/Ipratropium (Duoneb 3 Mg/0.5 Mg (3 Ml) Ud) 3 ml INH RQ4 PRN PRN Reason: Shortness of Breath Ascorbic Acid (Vitamin C 500 Mg Tab) 1,000 mg NG DAILY [facility] Last Admin: 07/28/18 09:57 Dose: 1,000 mg Aspirin (Aspirin Chewable) 81 mg GT DAILY [facility] Last Admin: 07/28/18 09:59 Dose: 81 mg Ergocalciferol (Drisdol 50,000 Intl Units Cap) 1 cap PO Q7D [facility] Last Admin: 07/25/18 14:15 Dose: 1 cap Furosemide (Lasix) 20 mg IVP BID [facility] Last Admin: 07/28/18 17:51 Dose: 20 mg Heparin Sodium/Sodium Chloride (Heparin 75722 Units/250ml 1/2 Normal Saline) 25,000 units in 250 mls @ 6.804 mls/hr IV .Q24H PRN; Protocol PRN Reason: PROTOCOL Last Admin: 07/28/18 10:17 Dose: 6.804 mls/hr Norepinephrine Bitartrate 4 mg (/ Sodium Chloride) 254 mls @ 19.05 mls/hr IV .[id number] PRN; Protocol PRN Reason: TITRATE PER MD ORDER Last Titration: 07/28/18 18:12 Dose: 2 mcg/min, 7.62 mls/hr Insulin Aspart (Novolog) 0 unit SC Q6 [facility]; Protocol Last Admin: 07/28/18 18:08 Dose: 4 units Insulin Glargine (Lantus) 20 unit SC Q12 [facility] Last Admin: 07/24/18 22:13 Dose: 20 u Lactobacillus Acidophilus (Bacid Acidophilus) 1 cap PO Q12H [facility] Last Admin: 07/28/18 08:14 Dose: 1 cap Methimazole (Tapazole) 20 mg PO Q8 [facility] Last Admin: 07/28/18 14:09 Dose: 20 mg Midodrine (Proamatine) 5 mg PO TID [facility] Last Admin: 07/28/18 17:52 Dose: 5 mg Multivitamins/Vitamin C (Multi-Delyn Liquid) 5 ml PO DAILY [facility] Last Admin: 07/28/18 10:00 Dose: 5 ml Pantoprazole Sodium (Protonix Susp) 40 mg PO DAILY [facility] Last Admin: 07/28/18 09:59 Dose: 40 mg Propranolol HCl (Inderal) 5 mg PO TID [facility] Last Admin: 07/28/18 17:52 Dose: 5 mg Rosuvastatin Calcium (Crestor) 2.5 mg PO HS [facility] Last Admin: 07/27/18 21:19 Dose: 2.5 mg Valproate Sodium (Depakene Oral Soln) 500 mg PEG BID [facility] Last Admin: 07/28/18 17:51 Dose: 500 mg Vitamin A (Vitamin A & D Oint Ud Foilpak) 1 ea TOP BID [facility] - Labs Labs: 07/28/18 06:19 07/28/18 06:19 PT 17.7 SECONDS (9.7-12.2) H 07/28/18 06:19 INR 1.6 07/28/18 06:19 APTT 59 SECONDS (21-34) H D 07/28/18 15:56 - Constitutional Appears: Non-toxic, Chronically Ill - Head Exam Head Exam: NORMOCEPHALIC - Eye Exam Eye Exam: absent: Scleral icterus - ENT Exam ENT Exam: Mucous Membranes Dry - Neck Exam Neck Exam: absent: Lymphadenopathy - Respiratory Exam Respiratory Exam: Decreased Breath Sounds - Cardiovascular Exam Cardiovascular Exam: REGULAR RHYTHM - GI/Abdominal Exam GI & Abdominal Exam: Distended - Rectal Exam Rectal Exam: Deferred - Exam Exam: NORMAL INSPECTION - Extremities Exam Extremities Exam: absent: Pedal Edema - Back Exam Back Exam: absent: CVA tenderness (L), CVA tenderness (R) Assessment and Plan (1) NEHA (acute kidney injury) Status: Acute (2) Acute renal failure Status: Acute (3) Acute respiratory failure Status: Acute (4) Aspiration pneumonia Status: Acute (5) Septic shock Status: Acute (6) Urinary tract infection Status: Acute (7) Diabetes mellitus Status: Chronic - Assessment and Plan (Free Text) Assessment: s/p trach / PEG pneumonia/ resp failure/ sepsis cont rx
[2018-07-28] MEDS: Albuterol-Ipratrop 3 mg / 0.5 (3 ml) UD INH PRN (20:12)
[2018-07-28] MEDS: Rosuvastatin Calcium 2.5 mg Tab PO SCH (21:07)
[2018-07-29] MEDS: (Novolog) Insulin Aspart, Recombinant 100 u/ml 10 ml vial SC SCH ×4 (00:30→18:06)
[2018-07-29 06:12] LABS: BASO # 0.1 K/uL (0.0-0.2); BASO % 1.3 % (0.0-2.0); EOS # 0.4 K/uL (0.0-0.7); EOS % 7.1 % (0.0-4.0); HEMOGLOBIN 10.6 g/dL (11.0-16.0); LYMPH # 1.5 K/uL (1.0-4.3); LYMPH % 26.4 % (20.0-40.0); MEAN CELL VOLUME 88.6 fL (81.0-99.0); MEAN CORPUSCULAR HEMOGLOBIN 30.1 pg (27.0-31.0); MEAN CORPUSCULAR HGB CONC 33.9 g/dL (33.0-37.0); MEAN PLATELET VOLUME 9.4 fL (7.2-11.7); MONO # 0.6 K/uL (0.0-0.8); MONO % 10.5 % (0.0-10.0); NEUT # 3.1 K/uL (1.8-7.0); NEUT % 54.7 % (50.0-75.0); RBC 3.54 Mil/uL (3.80-5.20); RED CELL DISTRIBUTION WIDTH 14.7 % (11.5-14.5); WHITE BLOOD COUNT 5.7 K/uL (4.8-10.8)
[2018-07-29 06:31] LABS: ALB/GLOB RATIO 0.8 (1.0-2.1); CALCIUM 8.6 mg/dl (8.6-10.4)
--- NOTE | 2018-07-29 08:44 | CP.PCM.PN ---
Subjective - Date & Time of Evaluation Date of Evaluation: 07/29/18 Time of Evaluation: 08:35 - Subjective Subjective: Medical Attending Note Patient seen and examined at bedside. Patient will follow commands in [place]. not present at bedside. Flexseal is off. Will need to discuss with regarding applying for insurance given patient is s/p trach and peg and no insurance. Objective - Vital Signs/Intake and Output Vital Signs (last 24 hours): Temp Pulse Resp BP Pulse Ox 97.8 F 78 13 117/60 98 07/29/18 04:00 07/29/18 06:14 07/29/18 06:14 07/29/18 06:14 07/29/18 06:00 Intake and Output: 07/29/18 07/29/18 06:59 18:59 Intake Total 1887.6 Output Total 1150 Balance 737.6 - Medications Medications: Current Medications Acetaminophen (Tylenol 325mg Tab) 650 mg PEG Q6 PRN PRN Reason: Pain, moderate (4-7) Last Admin: 07/28/18 20:49 Dose: 650 mg Albuterol/Ipratropium (Duoneb 3 Mg/0.5 Mg (3 Ml) Ud) 3 ml INH RQ4 PRN PRN Reason: Shortness of Breath Last Admin: 07/28/18 20:12 Dose: 3 ml Ascorbic Acid (Vitamin C 500 Mg Tab) 1,000 mg NG DAILY [facility] Last Admin: 07/28/18 09:57 Dose: 1,000 mg Aspirin (Aspirin Chewable) 81 mg GT DAILY [facility] Last Admin: 07/28/18 09:59 Dose: 81 mg Ergocalciferol (Drisdol 50,000 Intl Units Cap) 1 cap PO Q7D [facility] Last Admin: 07/25/18 14:15 Dose: 1 cap Furosemide (Lasix) 20 mg IVP BID [facility] Last Admin: 07/28/18 17:51 Dose: 20 mg Heparin Sodium/Sodium Chloride (Heparin 25436 Units/250ml 1/2 Normal Saline) 25,000 units in 250 mls @ 6.804 mls/hr IV .Q24H PRN; Protocol PRN Reason: PROTOCOL Last Admin: 07/28/18 10:17 Dose: 6.804 mls/hr Norepinephrine Bitartrate 4 mg (/ Sodium Chloride) 254 mls @ 19.05 mls/hr IV . [id number] PRN; Protocol PRN Reason: TITRATE PER MD ORDER Last Titration: 07/29/18 03:50 Dose: 0.99 mcg/min, 3.8 mls/hr Potassium Chloride (Potassium Chloride 20 Meq/100 Ml) 20 meq in 100 mls @ 50 ml s/hr IVPB ONCE ONE Stop: 07/29/18 10:14 Last Admin: 07/29/18 08:36 Dose: 50 mls/hr Insulin Aspart (Novolog) 0 unit SC Q6 [facility]; Protocol Last Admin: 07/29/18 06:17 Dose: Not Given Insulin Glargine (Lantus) 20 unit SC Q12 [facility] Last Admin: 07/24/18 22:13 Dose: 20 u Lactobacillus Acidophilus (Bacid Acidophilus) 1 cap PO Q12H [facility] Last Admin: 07/28/18 20:08 Dose: 1 cap Methimazole (Tapazole) 20 mg PO Q8 [facility] Last Admin: 07/29/18 06:16 Dose: 20 mg Midodrine (Proamatine) 5 mg PO TID [facility] Last Admin: 07/28/18 17:52 Dose: 5 mg Multivitamins/Vitamin C (Multi-Delyn Liquid) 5 ml PO DAILY [facility] Last Admin: 07/28/18 10:00 Dose: 5 ml Pantoprazole Sodium (Protonix Susp) 40 mg PO DAILY [facility] Last Admin: 07/28/18 09:59 Dose: 40 mg Propranolol HCl (Inderal) 5 mg PO TID [facility] Last Admin: 07/28/18 17:52 Dose: 5 mg Rosuvastatin Calcium (Crestor) 2.5 mg PO HS [facility] Last Admin: 07/28/18 21:07 Dose: 2.5 mg Valproate Sodium (Depakene Oral Soln) 500 mg PEG BID [facility] Last Admin: 07/28/18 17:51 Dose: 500 mg Vitamin A (Vitamin A & D Oint Ud Foilpak) 1 ea TOP BID [facility] Last Admin: 07/28/18 18:00 Dose: 1 ea - Labs Labs: 07/29/18 06:01 07/29/18 06:03 PT 17.7 SECONDS (9.7-12.2) H 07/28/18 06:19 INR 1.6 07/28/18 06:19 APTT 68 SECONDS (21-34) H D 07/29/18 01:37 - Constitutional Appears: Chronically Ill - Head Exam Head Exam: NORMAL INSPECTION - Eye Exam Eye Exam: EOMI - ENT Exam ENT Exam: Mucous Membranes Moist - Respiratory Exam Respiratory Exam: Decreased Breath Sounds, NORMAL BREATHING PATTERN. absent: Respiratory Distress, Stridor - Cardiovascular Exam Cardiovascular Exam: REGULAR RHYTHM, +S1, +S2, Murmur - GI/Abdominal Exam GI & Abdominal Exam: Soft, Normal Bowel Sounds. absent: Distended, Firm, Guarding, Rigid, Tenderness, Rebound Additional comments: + peg clean/dry/intact - Extremities Exam Extremities Exam: absent: Pedal Edema, Tenderness Additional comments: muscle atrophy bilateral - Back Exam Back Exam: absent: CVA tenderness (L), CVA tenderness (R) - Neurological Exam Neurological Exam: Awake - Skin Skin Exam: Dry, Intact, Normal Color, Warm Additional comments: prevalon boots Assessment and Plan (1) Septic shock Status: Acute (2) Acute respiratory failure Status: Acute (3) Urinary tract infection Status: Acute (4) Acute renal failure Status: Acute (5) Aspiration pneumonia Status: Acute (6) Diabetes mellitus Status: Chronic (7) Ventricular arrhythmia Status: Acute (8) Hyperthyroidism Status: Acute (9) Anemia Status: Acute (10) Prophylactic measure Status: Acute Attending/Attestation - Attestation I have personally seen and examined this patient.: Yes I have fully participated in the care of the patient.: Yes I have reviewed all pertinent clinical information, including history, physical exam and plan: Yes Notes (Text): Patient is status post trachestomy POD 5. patient has noted apical thrombus and LLE DVT; on heparin drip (previously on Eliquis prior to procedures). Patient is on Meropenem; pending repeat procalcitonin shows improving 0.75 from 3.86 on 07/20/18. patient has been w/o fever since 07/19/18 and white count has normalized. Discussed with ID, no vancomycin needed. Per cardiology, once procedures are done, recommend for anticoagulation for 3 months. Patient encouraged for early mobility with aggressive PT/OT. Will need to speak to case management since patient does not have insurance. Discussed with cardiology since patient will need cardiac workup in light of intracardiac thrombus possible for next week. Assessment/plan 1) Septic Shock Pneumonia Urinary Tract Infection Assessment/Plan * Infectious Disease (Dr. Brock) on case-->help appreciated * Tmax: 101.7 F (07/19/18) * Afebrile since * Criteria: leukocytosis, tachycardia * Source: aspiration pneumonia and urinary tract infection * 07/07/18: Urine: E. Coli * 07/09/18: Urine: No growth * 07/07/18: Blood culture: no growth after 5 days X2 * 07/09/18 Blood culture: no growth after 5 days X2 * 07/14/18: blood cultures: no growth to date * 07/14/18: sputum culture: yeast species * 07/14/18: Urine culture: no growth * 07/20/18: Blood culture: no growth after 5 days X2 * 07/20/18: Urine culture: no growth * 07/21/18: No Salmonella, shigella, or campobacter * 07/23/18 Urine culture: no growth * MRSA not detected * Antibiotics * Rocephin 2gm IVPB Q12H (07/14/18 through 07/20/18) * Meropenem 1 gm IV Q8H (active since 07/20/18) * Vancomycin 1 gram IVPB Q24H (being held since 07/20/18)-->vancomycin level 7.7-->per id to d/c vancomycin 2) Acute Respiratory Failure Pulmonary Edema Bilateral Pleural Effusion and Consolidations Likely Secondary to Aspiration Pneumonia Assessment/Plan * Required reintubated after 2nd fail attempt; patient underwent trachestomy 07/24/18 * off Solumedrol * Duonebs RQ4H PRN wheezing * MRSA screen: not detected * Sputum culture 07/09/18, 07/12/18, 07/14/18: yeast * Mycoplasma negative * Legionella was negative * Influenza negative * HIV negative * CT Chest 07/15/18: Moderate to large bilateral pleural effusion and associated consolidations, pathcy grround-glass infiltrates/edema noted within bilateral upper lobes * Chest xray (07/24/18): worsening infiltrates, satisfactory position of recently placed tracheostomy device. Satisfactory position of remaining keith pport apparatus including venous access catheter and recently placed nasogastric tube * Rocephin 2gm IVPB Q12H (07/14/18 through 07/20/18) * Meropenem 1 gm IV Q8H (active since 07/20/18) * Vancomycin 1 gram IVPB Q24H (being held since 07/20/18) discontinued by ID * Bedside Thoracic U/S 07/17/18 did not reveal enough pleural effusion for Thoracentesis and per IR on 07/28/18 nothing to drain * Lasix 20 mg IV Q12H * Levophed Drip on * Procalcitonin downtrending to 0.75. 3) Ventricular Tachycardia NSTEMI Apical Thrombus LLE DVT Assessment/Plan * Code Blue 07/10: SVT==>VT required amiodarone, magnesium, one shock delivered * Code Blue 07/20: vtach s/p amiodarone, fluid, calcium gluconate, required compressions and shock * Cardiology Dr Francisco on case help appreciated * Echocardiogram (07/07/18): left ventricle systolic function is borderline, ejection fraction is 45-50%, no aortic regurgitation is present, mitral regurgitation is mild. Mild tricuspid regurgitation. mild pulmonary hypertension, mild pulmonic valvular regurgitation * Contrast Echo: Large apical hypokinesis a large 30 x 20 mm soft tissue apical sessile mass suggestive of thrombus overall fraction 40%. Obtain a HUBERT or/consider stress card myopathy if coronary disease is excluded further findings per report * Amiodarone discontinued * Monitor electrolytes * Heparin drip changed to Eliquis 2.5 mg 2x/day 07/18/18 and then patient placed back on Heparin Drip 07/21/18 for pending Tracheostomy on 07/24/18 * Aspirin 81 mg PO 1x/day. Considering patient already on Eliquis and to reduce chance of bleeding, Plavix was discontinued 07/18/18. * Propranolol 5mg PO TID * Patient is on heparin drip * Will need to f/u cardiology in regards to cath 4) Urinary Tract Infection Assessment/Plan * Infectious disease on board help appreciated * 07/07/18: Urine: E. Coli * 07/09/18: Urine: No growth * 07/14/18: Urine culture: No growth * Urine Culture 07/20/18: No growth 5) Diabetes-->chronic Assessment/Plan * HgBA1c: 7.8 * Hypoglycemic protocol * Lantus 20 units subcutaneous at bedtime Q12 6) Acute on Chronic Renal Failure Assessment/Plan * Nephrology (Dr. Hyde) on board--> help appreciated * Patient will likely not need dialysis * Renal function continues to improve 7) Hyperthyroidism? Low TSH, and Free T4 Thyroid Storm Assessment/Plan * Note Thyroid studies taken before amiodarone was given (please advised this is not amiodarone induced her levels were abnormal prior) * Patient does not have prior thyroid history * Endocrinology (Dr. 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 She will need outpatient FNA Bx of the complex Left Lobe cyst (please see full report) * Methimazole 20mg PO TID * Propranolol 5 mg PO TID * Monitor LFTs 8) Anemia Likely Secondary to Chronic Diseases Assessment/Plan * Iron normal, TIBC low, Iron Saturation normal, Ferritin normal * Stool occult blood negative * B12 normal * Folate Normal * Being transfused 1 unit PRBC 07/22/18 * Patient is on Eliquis (which is being held and switched to Heparin Drip for Tracheostomy 07/24/18; and possible peg placement) for the Cardiac Apical Thrombus and on Aspirin for the NSTEMI (Plavix was discontinued 07/18/18); patient is currently on heparin drip; awaiting possible cath 9) Transminitis-->improving * Likely secondary to Sepsis and Amiodarone (which was discontinued) * Hepatitis serology negative * Slightly elevated from normal on 07/20/18 but could be secondary to CATECHIST/Code Blue 07/20/18 10) Vitamin D deficiency Assessment plan * 50,000 international units once a week for at least 8-12 weeks started on 07/11/18 11) Thrombocytopenia-->resolved Assessment plan * Sepsis, vs Methimazole? * Patient was on Heparin Drip through 07/18/18 and then started on Eliquis on this date * Heparin drip for procedures * patient was on Eliquis prior but given trachestomy and now peg placement * Fibrinogen elevated * HIT and RUSTY both negative for HIT * Currently normalized 12) 13 mm Left Adrenal Nodule * As seen on CT Chest 07/16/18 * Will need outpatient follow up for cross sectional imaging for better characterization 13) Hypernatremia-->resolved * Free water 250 ml 3x/day via OGT * Na now normal 14) LLE DVT * Heparin drip changed to Eliquis 2.5 mg 2x/day 07/18/18 and then patient placed back on Heparin Drip 07/21/18. Patient has completed both trach and peg. Rodriguez livia is awaiting cardiac cath next week. * Acute thrombosis of the left common femoral and femoral veins with severe reduction of the venous return on 07/18/18 venous doppler 15) Prophylactic measure * Protonix 40mg PO BID * Patient is on heparin drip * s/p trach and peg * Awaiting cardaic cath * Bilateral SCDs * Peg feedings * Subclavian line 07/14/18 * Off precedex * Off ativan * Note: speak to patient in [place] to assess neurologic status-->she does follow Disposition; Patient is status post trachoestomy and peg placement. Heparin drip. Patient is awaiting cardiac cath in light of cardiac thrombus. Patient is on IV abx for pneumonia and urinary tract infection.
[2018-07-29] MEDS: Lactobacillus Acidophilus 500 MU Cap PO SCH ×2 (08:45→19:28)
--- NOTE | 2018-07-29 08:50 | RAD ---
Date of service: 07/29/2018 HISTORY: congestion COMPARISON: Portable chest 07/28/2018. FINDINGS: LUNGS: Right central venous line and tracheostomy tube unchanged in position. Cardiac silhouette appears stable. Diminished airspace disease is appreciated both lung bases but remains greater the left and right sides. PLEURA: No significant pleural effusion identified, no pneumothorax apparent. CARDIOVASCULAR: No aortic atherosclerotic calcification present. Mildly prominent cardiac silhouette reiterated with limited pulmonary vascular congestion suspected. OSSEOUS STRUCTURES: No significant abnormalities. VISUALIZED UPPER ABDOMEN: Normal. OTHER FINDINGS: None. IMPRESSION: Mild improvement in bilateral basilar airspace disease remaining greater at the left and right sides. Limited pulmonary vascular congestion pattern not significantly changed.
[2018-07-29] MEDS: Propranolol 5 mg Tab PO SCH ×3 (09:32→17:32)
[2018-07-29] MEDS: Valproic Acid 250 mg/5 ml UD Cup PEG SCH ×2 (09:32→17:32)
[2018-07-29] MEDS: Multiple Vitamins Oral Solution PO SCH (09:33)
[2018-07-29] MEDS: Pantoprazole 40 mg Susp UD PO SCH (09:33)
[2018-07-29] MEDS: Vitamins A & D Oint UD Foilpak TOP SCH ×2 (09:54→17:33)
[2018-07-29] MEDS ORDERED: Potassium Chloride 20 mEq/15 ml LIQ UD PO ONE (10:15)
--- NOTE | 2018-07-29 10:19 | CP.PCM.PN ---
Subjective - Date & Time of Evaluation Date of Evaluation: 07/29/18 Time of Evaluation: 10:14 - Subjective Subjective: No acute events overnight, no fevers, on 1 mcg of norepi Objective - Vital Signs/Intake and Output Vital Signs (last 24 hours): Temp Pulse Resp BP Pulse Ox 97.8 F 103 H 21 140/72 100 07/29/18 04:00 07/29/18 09:05 07/29/18 09:05 07/29/18 09:33 07/29/18 09:05 Intake and Output: 07/29/18 07/29/18 06:59 18:59 Intake Total 1887.6 Output Total 1150 Balance 737.6 - Medications Medications: Current Medications Acetaminophen (Tylenol 325mg Tab) 650 mg PEG Q6 PRN PRN Reason: Pain, moderate (4-7) Last Admin: 07/28/18 20:49 Dose: 650 mg Albuterol/Ipratropium (Duoneb 3 Mg/0.5 Mg (3 Ml) Ud) 3 ml INH RQ4 PRN PRN Reason: Shortness of Breath Last Admin: 07/28/18 20:12 Dose: 3 ml Ascorbic Acid (Vitamin C 500 Mg Tab) 1,000 mg NG DAILY [facility] Last Admin: 07/29/18 09:33 Dose: 1,000 mg Aspirin (Aspirin Chewable) 81 mg GT DAILY [facility] Last Admin: 07/29/18 09:32 Dose: 81 mg Ergocalciferol (Drisdol 50,000 Intl Units Cap) 1 cap PO Q7D [facility] Last Admin: 07/25/18 14:15 Dose: 1 cap Furosemide (Lasix) 20 mg IVP BID [facility] Last Admin: 07/29/18 09:33 Dose: 20 mg Heparin Sodium/Sodium Chloride (Heparin 52294 Units/250ml 1/2 Normal Saline) 25,000 units in 250 mls @ 6.804 mls/hr IV .Q24H PRN; Protocol PRN Reason: PROTOCOL Last Admin: 07/28/18 10:17 Dose: 6.804 mls/hr Norepinephrine Bitartrate 4 mg (/ Sodium Chloride) 254 mls @ 19.05 mls/hr IV .[id number] PRN; Protocol PRN Reason: TITRATE PER MD ORDER Last Titration: 07/29/18 03:50 Dose: 0.99 mcg/min, 3.8 mls/hr Potassium Chloride (Potassium Chloride 20 Meq/100 Ml) 20 meq in 100 mls @ 50 mls/hr IVPB ONCE ONE Stop: 07/29/18 10:14 Last Admin: 07/29/18 08:36 Dose: 50 mls/hr Insulin Aspart (Novolog) 0 unit SC Q6 [facility]; Protocol Last Admin: 07/29/18 06:17 Dose: Not Given Insulin Glargine (Lantus) 20 unit SC Q12 [facility] Last Admin: 07/24/18 22:13 Dose: 20 u Lactobacillus Acidophilus (Bacid Acidophilus) 1 cap PO Q12H [facility] Last Admin: 07/29/18 08:45 Dose: 1 cap Methimazole (Tapazole) 20 mg PO Q8 [facility] Last Admin: 07/29/18 06:16 Dose: 20 mg Midodrine (Proamatine) 5 mg PO TID [facility] Last Admin: 07/29/18 09:32 Dose: 5 mg Multivitamins/Vitamin C (Multi-Delyn Liquid) 5 ml PO DAILY [facility] Last Admin: 07/29/18 09:33 Dose: 5 ml Pantoprazole Sodium (Protonix Susp) 40 mg PO DAILY [facility] Last Admin: 07/29/18 09:33 Dose: 40 mg Potassium Chloride (Potassium Chloride Oral Soln) 60 meq PO ONCE ONE Stop: 07/29/18 10:16 Propranolol HCl (Inderal) 5 mg PO TID [facility] Last Admin: 07/29/18 09:32 Dose: 5 mg Rosuvastatin Calcium (Crestor) 2.5 mg PO HS [facility] Last Admin: 07/28/18 21:07 Dose: 2.5 mg Valproate Sodium (Depakene Oral Soln) 500 mg PEG BID [facility] Last Admin: 07/29/18 09:32 Dose: 500 mg Vitamin A (Vitamin A & D Oint Ud Foilpak) 1 ea TOP BID [facility] Last Admin: 07/29/18 09:54 Dose: 1 ea - Labs Labs: 07/29/18 06:01 07/29/18 06:03 PT 17.7 SECONDS (9.7-12.2) H 07/28/18 06:19 INR 1.6 07/28/18 06:19 APTT 68 SECONDS (21-34) H D 07/29/18 01:37 - Constitutional Appears: Well, Non-toxic - Head Exam Head Exam: ATRAUMATIC, NORMAL INSPECTION - Eye Exam Eye Exam: EOMI - ENT Exam ENT Exam: Mucous Membranes Moist - Respiratory Exam Respiratory Exam: NORMAL BREATHING PATTERN. absent: Rales, Respiratory Distress, Stridor - Cardiovascular Exam Cardiovascular Exam: REGULAR RHYTHM, +S1, +S2 - GI/Abdominal Exam GI & Abdominal Exam: Normal Bowel Sounds Additional comments: PEG - Extremities Exam Extremities Exam: Normal Capillary Refill, Pedal Edema - Neurological Exam Neurological Exam: Altered Neuro motor strength exam: Left Upper Extremity: 4, Right Upper Extremity: 4, Left Lower Extremity: 4, Right Lower Extremity: 4 - Skin Skin Exam: Normal Color Assessment and Plan - Assessment and Plan (Free Text) Assessment: 52 yo female with PMH of DM2 and hypercholesterolemia who presented to with cough, post-tussive emesis, and malaise x2-3 weeks. She was admitted to the ICU for respiratory failure and acute renal failure. Of note, patient was CODE BLUE on 07/10 (V-tach). Remains intubated after failing extubation, as patient vomited just hours after extubation. Currently with tracheostomy (performed by Dr. Melchor.) Patient is hemodynamically stable, and is status-post PEG placement with Dr. Murray and GI Fellow Dr. Amaya. Plan Neuro Anoxic brain injury - Hemodynamically stable - valproic acid bid for impluse control Chronic Hypoxic Respiratory Failure secondary to pulmonary congestion, renal failure * Status-post trach * CXR shows congestion and R lower lobe infiltrate * Continue bronchodilators * C-PAP trials daily * Duonebs 2 ml INH RQ4 * Status-post tracheostomy 07/[address] Melchor * CXR official report (07/25): worsening infiltrates, satisfactory position of recently placed tracheostomy device, Satisfactory position of remaining support apparatus including venous access catheter and recently placed nasogastric tube CV Hypotension - Levophed titrated to keep MAP > 65 - continue Midodrine - Cardiology consulted. Appreciate recs. - Doppler show LLE DVT, right cephalic vein thrombus - Heparin drip continue - Continue daily aspirin 81 mg, crestor 2.5 mg PO HS MSK - OOB as tolerated with assistance - Early Mobilization highly recommended - PT/OT - Discontinue mcintyre - Discontinue central line (right IJ) GI - Start: Vital 1.2 tube feeds Max Rate #35 via G tube - Pelvic/ trasnvaginal ultrasound performed. Pending report - Patient's states patient still has regular menstrual cycles monthly - Monitor H/H Renal - Acute renal failure resolving - Avoid nephrotoxic drugs Heme: - monitor cbc - No acute issues - Continue to monitor H/H Endo - ISS for coverage, q6h - Increased: Methimazole 10 mg PO TID --> Methimazole 20mg PO Q8 - FSH LH and Prolactin Pending Infectious Disease - ID following, appreciate all recs Code status: FULL Next of kin: Martina Isaacs () Prognosis: Guarded if tolerates CPAP will swithc to trach collar
[2018-07-29] MEDS: Rosuvastatin Calcium 2.5 mg Tab PO SCH (21:11)
[2018-07-29] MEDS: Heparin25000 units/250ml 1/2NS 25,000 UNITS/250 ML BAG IV PRN (21:11)
[2018-07-30] MEDS: (Novolog) Insulin Aspart, Recombinant 100 u/ml 10 ml vial SC SCH ×5 (00:22→23:57)
[2018-07-30 06:52] LABS: BASO # 0.1 K/uL (0.0-0.2); BASO % 1.7 % (0.0-2.0); EOS # 0.4 K/uL (0.0-0.7); EOS % 6.6 % (0.0-4.0); HEMOGLOBIN 11.1 g/dL (11.0-16.0); LYMPH # 1.4 K/uL (1.0-4.3); LYMPH % 22.4 % (20.0-40.0); MEAN CELL VOLUME 89.1 fL (81.0-99.0); MEAN CORPUSCULAR HEMOGLOBIN 30.4 pg (27.0-31.0); MEAN CORPUSCULAR HGB CONC 34.1 g/dL (33.0-37.0); MEAN PLATELET VOLUME 9.4 fL (7.2-11.7); MONO # 0.6 K/uL (0.0-0.8); MONO % 10.5 % (0.0-10.0); NEUT # 3.6 K/uL (1.8-7.0); NEUT % 58.8 % (50.0-75.0); NRBC % 0.1 % (0.0-2.0); RBC 3.67 Mil/uL (3.80-5.20); RED CELL DISTRIBUTION WIDTH 14.8 % (11.5-14.5); WHITE BLOOD COUNT 6.1 K/uL (4.8-10.8)
[2018-07-30 07:00] LABS: BLOOD UREA NITROGEN 28 mg/dL (7-17)
[2018-07-30 07:01] LABS: ALB/GLOB RATIO 0.8 (1.0-2.1); ALBUMIN 3.1 g/dL (3.5-5.0); ALT/SGPT 25 U/L (9-52); AST/SGOT 19 U/L (14-36); CALCIUM 8.8 mg/dl (8.6-10.4); GFR NON-AFRICAN AMERICAN 52
--- NOTE | 2018-07-30 09:00 | RAD ---
Date of service: 07/30/2018 HISTORY: congestion COMPARISON: Portable chest 07/29/2018 FINDINGS: LUNGS: Tracheostomy tube and right central venous line are unchanged in position. Left hemidiaphragm is now all opacified reflecting increased atelectasis or infiltrate at the left base. No right-sided infiltrate appreciable. PLEURA: Trace left pleural effusion not excluded. None on the right. No pneumothorax bilaterally. CARDIOVASCULAR: Calcific atherosclerotic changes are seen related to the thoracic aorta. Normal cardiac size. Mild pulmonary vascular congestion unchanged. OSSEOUS STRUCTURES: No significant abnormalities. VISUALIZED UPPER ABDOMEN: Normal. OTHER FINDINGS: None. IMPRESSION: Interval increased airspace disease left base with trace of pleural effusion not excluded. No definite right-sided airspace disease. Pulmonary vascular congestion unchanged.
[2018-07-30] MEDS: Valproic Acid 250 mg/5 ml UD Cup PEG SCH ×2 (09:07→17:12)
[2018-07-30] MEDS: Lactobacillus Acidophilus 500 MU Cap PO SCH ×2 (09:07→19:51)
[2018-07-30] MEDS: Multiple Vitamins Oral Solution PO SCH (09:07)
[2018-07-30] MEDS: Pantoprazole 40 mg Susp UD PO SCH (09:07)
[2018-07-30] MEDS: Propranolol 5 mg Tab PO SCH ×3 (09:12→17:12)
[2018-07-30] MEDS: Vitamins A & D Oint UD Foilpak TOP SCH ×2 (09:26→17:13)
--- NOTE | 2018-07-30 13:28 | CP.PCM.PN ---
Subjective - Date & Time of Evaluation Date of Evaluation: 07/30/18 Time of Evaluation: 13:17 - Subjective Subjective: No events, cpap trial with ps of 15 started, patient slow to respond, but appear exhausted, recognizes and follows some commands. Objective - Vital Signs/Intake and Output Vital Signs (last 24 hours): Temp Pulse Resp BP Pulse Ox 97.9 F 79 11 L 120/64 99 07/30/18 12:00 07/30/18 11:48 07/30/18 11:48 07/30/18 11:48 07/30/18 12:00 Intake and Output: 07/30/18 07/30/18 06:59 18:59 Intake Total 812.0 284.0 Output Total 560 315 Balance 252.0 -31.0 - Medications Medications: Current Medications Acetaminophen (Tylenol 325mg Tab) 650 mg PEG Q6 PRN PRN Reason: Pain, moderate (4-7) Last Admin: 07/28/18 20:49 Dose: 650 mg Albuterol/Ipratropium (Duoneb 3 Mg/0.5 Mg (3 Ml) Ud) 3 ml INH RQ4 PRN PRN Reason: Shortness of Breath Last Admin: 07/28/18 20:12 Dose: 3 ml Ascorbic Acid (Vitamin C 500 Mg Tab) 1,000 mg NG DAILY [facility] Last Admin: 07/30/18 09:07 Dose: 1,000 mg Aspirin (Aspirin Chewable) 81 mg GT DAILY [facility] Last Admin: 07/30/18 09:07 Dose: 81 mg Ergocalciferol (Drisdol 50,000 Intl Units Cap) 1 cap PO Q7D [facility] Last Admin: 07/25/18 14:15 Dose: 1 cap Furosemide (Lasix) 20 mg IVP BID [facility] Last Admin: 07/30/18 09:07 Dose: 20 mg Heparin Sodium/Sodium Chloride (Heparin 83309 Units/250ml 1/2 Normal Saline) 25,000 units in 250 mls @ 6.804 mls/hr IV .Q24H PRN; Protocol PRN Reason: PROTOCOL Last Admin: 07/29/18 21:11 Dose: 6.804 mls/hr Norepinephrine Bitartrate 4 mg (/ Sodium Chloride) 254 mls @ 19.05 mls/hr IV .[id number] PRN; Protocol PRN Reason: TITRATE PER MD ORDER Last Titration: 07/29/18 20:00 Dose: 0 mcg/min, 0 mls/hr Insulin Aspart (Novolog) 0 unit SC Q6 [facility]; Protocol Last Admin: 07/30/18 11:17 Dose: 2 units Insulin Glargine (Lantus) 20 unit SC Q12 [facility] Last Admin: 07/24/18 22:13 Dose: 20 u Lactobacillus Acidophilus (Bacid Acidophilus) 1 cap PO Q12H [facility] Last Admin: 07/30/18 09:07 Dose: 1 cap Methimazole (Tapazole) 20 mg PO Q8 [facility] Last Admin: 07/30/18 05:19 Dose: 20 mg Midodrine (Proamatine) 5 mg PO TID [facility] Last Admin: 07/30/18 09:25 Dose: 5 mg Multivitamins/Vitamin C (Multi-Delyn Liquid) 5 ml PO DAILY [facility] Last Admin: 07/30/18 09:07 Dose: 5 ml Pantoprazole Sodium (Protonix Susp) 40 mg PO DAILY [facility] Last Admin: 07/30/18 09:07 Dose: 40 mg Propranolol HCl (Inderal) 5 mg PO TID [facility] Last Admin: 07/30/18 09:12 Dose: 5 mg Rosuvastatin Calcium (Crestor) 2.5 mg PO HS [facility] Last Admin: 07/29/18 21:11 Dose: 2.5 mg Valproate Sodium (Depakene Oral Soln) 500 mg PEG BID [facility] Last Admin: 07/30/18 09:07 Dose: 500 mg Vitamin A (Vitamin A & D Oint Ud Foilpak) 1 ea TOP BID [facility] Last Admin: 07/30/18 09:26 Dose: 1 ea - Labs Labs: 07/30/18 06:43 07/30/18 06:43 PT 17.7 SECONDS (9.7-12.2) H 07/28/18 06:19 INR 1.6 07/28/18 06:19 APTT 55 SECONDS (21-34) H D 07/30/18 06:43 - Additional Findings Additional findings: * HEENT ADOLPH * Neck Trache in place * CVS regular, slight systolic murmur in precordium * PA soft, peg in place * Ext no edema * Skin normal turgor. * PROSPECTING DRILLER moving all ext, slow response Assessment and Plan - Assessment and Plan (Free Text) Assessment: * Resp failure on trache on cpap with ps for trial * LV thrombus * DVT * Hyperthyroid * IDDM * Recent NEHA s/p hd, but off hd now * s/p cardiac arrest with torsades * Right subclavian line * Hypotension on midodrine * Off and on agitation * Deconditioned Plan: * Supportive care * Anticoagulation with heparin * Methimazlole * Maintain euglycemia * CPAP trial * Will need LTAC, SS involved * Patient is off abx
--- NOTE | 2018-07-30 16:43 | CP.PCM.PN ---
Subjective - Date & Time of Evaluation Date of Evaluation: 07/30/18 Time of Evaluation: 10:00 - Subjective Subjective: vented afeb nad Objective - Vital Signs/Intake and Output Vital Signs (last 24 hours): Temp Pulse Resp BP Pulse Ox 97.9 F 81 14 142/82 100 07/30/18 12:00 07/30/18 15:48 07/30/18 15:48 07/30/18 15:48 07/30/18 15:48 Intake and Output: 07/30/18 07/30/18 06:59 18:59 Intake Total 812.0 397.6 Output Total 560 455 Balance 252.0 -57.4 - Medications Medications: Current Medications Acetaminophen (Tylenol 325mg Tab) 650 mg PEG Q6 PRN PRN Reason: Pain, moderate (4-7) Last Admin: 07/28/18 20:49 Dose: 650 mg Albuterol/Ipratropium (Duoneb 3 Mg/0.5 Mg (3 Ml) Ud) 3 ml INH RQ4 PRN PRN Reason: Shortness of Breath Last Admin: 07/28/18 20:12 Dose: 3 ml Ascorbic Acid (Vitamin C 500 Mg Tab) 1,000 mg NG DAILY [facility] Last Admin: 07/30/18 09:07 Dose: 1,000 mg Aspirin (Aspirin Chewable) 81 mg GT DAILY [facility] Last Admin: 07/30/18 09:07 Dose: 81 mg Ergocalciferol (Drisdol 50,000 Intl Units Cap) 1 cap PO Q7D [facility] Last Admin: 07/25/18 14:15 Dose: 1 cap Furosemide (Lasix) 20 mg IVP BID [facility] Last Admin: 07/30/18 09:07 Dose: 20 mg Heparin Sodium/Sodium Chloride (Heparin 70622 Units/250ml 1/2 Normal Saline) 25,000 units in 250 mls @ 6.804 mls/hr IV .Q24H PRN; Protocol PRN Reason: PROTOCOL Last Admin: 07/29/18 21:11 Dose: 6.804 mls/hr Norepinephrine Bitartrate 4 mg (/ Sodium Chloride) 254 mls @ 19.05 mls/hr IV .[id number] PRN; Protocol PRN Reason: TITRATE PER MD ORDER Last Titration: 07/29/18 20:00 Dose: 0 mcg/min, 0 mls/hr Insulin Aspart (Novolog) 0 unit SC Q6 [facility]; Protocol Last Admin: 07/30/18 11:17 Dose: 2 units Insulin Glargine (Lantus) 20 unit SC Q12 [facility] Last Admin: 07/24/18 22:13 Dose: 20 u Lactobacillus Acidophilus (Bacid Acidophilus) 1 cap PO Q12H [facility] Last Admin: 07/30/18 09:07 Dose: 1 cap Methimazole (Tapazole) 20 mg PO Q8 [facility] Last Admin: 07/30/18 13:35 Dose: 20 mg Midodrine (Proamatine) 5 mg PO TID [facility] Last Admin: 07/30/18 13:35 Dose: 5 mg Multivitamins/Vitamin C (Multi-Delyn Liquid) 5 ml PO DAILY [facility] Last Admin: 07/30/18 09:07 Dose: 5 ml Pantoprazole Sodium (Protonix Susp) 40 mg PO DAILY [facility] Last Admin: 07/30/18 09:07 Dose: 40 mg Propranolol HCl (Inderal) 5 mg PO TID [facility] Last Admin: 07/30/18 13:35 Dose: 5 mg Rosuvastatin Calcium (Crestor) 2.5 mg PO HS [facility] Last Admin: 07/29/18 21:11 Dose: 2.5 mg Valproate Sodium (Depakene Oral Soln) 500 mg PEG BID [facility] Last Admin: 07/30/18 09:07 Dose: 500 mg Vitamin A (Vitamin A & D Oint Ud Foilpak) 1 ea TOP BID [facility] Last Admin: 07/30/18 09:26 Dose: 1 ea - Labs Labs: 07/30/18 06:43 07/30/18 06:43 PT 17.7 SECONDS (9.7-12.2) H 07/28/18 06:19 INR 1.6 07/28/18 06:19 APTT 55 SECONDS (21-34) H D 07/30/18 06:43 - Constitutional Appears: Non-toxic, Chronically Ill - Head Exam Head Exam: NORMOCEPHALIC - Eye Exam Eye Exam: PERRL - ENT Exam ENT Exam: Mucous Membranes Dry - Neck Exam Neck Exam: absent: Lymphadenopathy - Respiratory Exam Respiratory Exam: Decreased Breath Sounds - Cardiovascular Exam Cardiovascular Exam: REGULAR RHYTHM - GI/Abdominal Exam GI & Abdominal Exam: Distended - Rectal Exam Rectal Exam: Deferred Assessment and Plan (1) NEHA (acute kidney injury) Status: Acute (2) Acute renal failure Status: Acute (3) Acute respiratory failure Status: Acute (4) Aspiration pneumonia Status: Acute (5) Septic shock Status: Acute (6) Urinary tract infection Status: Acute (7) Diabetes mellitus Status: Chronic
[2018-07-30] MEDS: Rosuvastatin Calcium 2.5 mg Tab PO SCH (21:03)
[2018-07-31 03:50] LABS: B2 GLYCOPROTEIN I AB(IGA) <9 SAU (<=20); B2 GLYCOPROTEIN I AB(IGG) <9 SGU (<=20); B2 GLYCOPROTEIN I AB(IGM) <9 SMU (<=20)
[2018-07-31 04:08] LABS: PHOSPHATIDYLSERINE AB IGA <20 U/mL (<20); PHOSPHATIDYLSERINE AB IGG <10 U/mL (<10); PHOSPHATIDYLSERINE AB IGM <25 U/mL (<25)
[2018-07-31 06:01] LABS: BASO # 0.1 K/uL (0.0-0.2); BASO % 1.5 % (0.0-2.0); EOS # 0.4 K/uL (0.0-0.7); EOS % 7.4 % (0.0-4.0); HEMOGLOBIN 11.2 g/dL (11.0-16.0); LYMPH # 1.7 K/uL (1.0-4.3); LYMPH % 27.9 % (20.0-40.0); MEAN CORPUSCULAR HEMOGLOBIN 29.6 pg (27.0-31.0); MEAN CORPUSCULAR HGB CONC 33.6 g/dL (33.0-37.0); MONO # 0.6 K/uL (0.0-0.8); MONO % 10.2 % (0.0-10.0); NEUT # 3.2 K/uL (1.8-7.0); RBC 3.77 Mil/uL (3.80-5.20); RED CELL DISTRIBUTION WIDTH 15.1 % (11.5-14.5)
[2018-07-31] MEDS: (Novolog) Insulin Aspart, Recombinant 100 u/ml 10 ml vial SC SCH ×3 (06:18→17:54)
[2018-07-31 06:38] LABS: ALB/GLOB RATIO 0.8 (1.0-2.1); ALBUMIN 3.2 g/dL (3.5-5.0); ALT/SGPT 20 U/L (9-52); AST/SGOT 24 U/L (14-36); BLOOD UREA NITROGEN 33 mg/dL (7-17); GFR NON-AFRICAN AMERICAN 58
--- NOTE | 2018-07-31 07:59 | CP.PCM.PN ---
Subjective - Date & Time of Evaluation Date of Evaluation: 07/30/18 Time of Evaluation: 15:00 - Subjective Subjective: Medical Attending Note; Patient seen and examined. Unable to ROS secondary to clinical condition. patient seen with nurse, appears more alert, note: must speak in alexis for patient to follow commands. Discussed with Rn, patient was trialed on CPAP this morning but was exhausted. Objective - Vital Signs/Intake and Output Vital Signs (last 24 hours): Temp Pulse Resp BP Pulse Ox 97.2 F L 82 12 121/78 100 07/31/18 04:00 07/31/18 07:00 07/31/18 07:00 07/31/18 05:48 07/31/18 07:00 Intake and Output: 07/31/18 07/31/18 06:59 18:59 Intake Total 781.6 56.8 Output Total 960 80 Balance -178.4 -23.2 - Medications Medications: Current Medications Acetaminophen (Tylenol 325mg Tab) 650 mg PEG Q6 PRN PRN Reason: Pain, moderate (4-7) Last Admin: 07/28/18 20:49 Dose: 650 mg Albuterol/Ipratropium (Duoneb 3 Mg/0.5 Mg (3 Ml) Ud) 3 ml INH RQ4 PRN PRN Reason: Shortness of Breath Last Admin: 07/28/18 20:12 Dose: 3 ml Ascorbic Acid (Vitamin C 500 Mg Tab) 1,000 mg NG DAILY [facility] Last Admin: 07/30/18 09:07 Dose: 1,000 mg Aspirin (Aspirin Chewable) 81 mg GT DAILY [facility] Last Admin: 07/30/18 09:07 Dose: 81 mg Ergocalciferol (Drisdol 50,000 Intl Units Cap) 1 cap PO Q7D [facility] Last Admin: 07/25/18 14:15 Dose: 1 cap Furosemide (Lasix) 20 mg IVP BID [facility] Last Admin: 07/30/18 17:13 Dose: 20 mg Heparin Sodium/Sodium Chloride (Heparin 57105 Units/250ml 1/2 Normal Saline) 25,000 units in 250 mls @ 6.804 mls/hr IV .Q24H PRN; Protocol PRN Reason: PROTOCOL Last Admin: 07/29/18 21:11 Dose: 6.804 mls/hr Norepinephrine Bitartrate 4 mg (/ Sodium Chloride) 254 mls @ 19.05 mls/hr IV .[id number] PRN; Protocol PRN Reason: TITRATE PER MD ORDER Last Titration: 07/29/18 20:00 Dose: 0 mcg/min, 0 mls/hr Insulin Aspart (Novolog) 0 unit SC Q6 [facility]; Protocol Last Admin: 07/31/18 06:18 Dose: 4 units Insulin Glargine (Lantus) 20 unit SC Q12 [facility] Last Admin: 07/24/18 22:13 Dose: 20 u Lactobacillus Acidophilus (Bacid Acidophilus) 1 cap PO Q12H [facility] Last Admin: 07/30/18 19:51 Dose: 1 cap Methimazole (Tapazole) 20 mg PO Q8 [facility] Last Admin: 07/31/18 06:18 Dose: 20 mg Midodrine (Proamatine) 5 mg PO TID [facility] Last Admin: 07/30/18 17:12 Dose: 5 mg Multivitamins/Vitamin C (Multi-Delyn Liquid) 5 ml PO DAILY [facility] Last Admin: 07/30/18 09:07 Dose: 5 ml Pantoprazole Sodium (Protonix Susp) 40 mg PO DAILY [facility] Last Admin: 07/30/18 09:07 Dose: 40 mg Propranolol HCl (Inderal) 5 mg PO TID [facility] Last Admin: 07/30/18 17:12 Dose: 5 mg Rosuvastatin Calcium (Crestor) 2.5 mg PO HS [facility] Last Admin: 07/30/18 21:03 Dose: 2.5 mg Valproate Sodium (Depakene Oral Soln) 500 mg PEG BID [facility] Last Admin: 07/30/18 17:12 Dose: 500 mg Vitamin A (Vitamin A & D Oint Ud Foilpak) 1 ea TOP BID [facility] Last Admin: 07/30/18 17:13 Dose: 1 ea - Labs Labs: 07/31/18 05:56 07/31/18 05:56 PT 17.7 SECONDS (9.7-12.2) H 07/28/18 06:19 INR 1.6 07/28/18 06:19 APTT 52 SECONDS (21-34) H 07/31/18 05:56 - Constitutional Appears: Chronically Ill - Head Exam Head Exam: NORMAL INSPECTION Additional comments: s/p trach clean/dry/intact right subclavian line prevalon boots mcintyre - Eye Exam Eye Exam: EOMI - ENT Exam ENT Exam: Mucous Membranes Moist - Respiratory Exam Respiratory Exam: Decreased Breath Sounds, NORMAL BREATHING PATTERN Additional comments: improved, on vent - Cardiovascular Exam Cardiovascular Exam: REGULAR RHYTHM, +S1, +S2 - GI/Abdominal Exam GI & Abdominal Exam: Soft, Normal Bowel Sounds Additional comments: no rigidity, no guarding, no murphys sign s/p peg clean/dry intact - Extremities Exam Additional comments: no edema b/l muscle wasting noted - Neurological Exam Neurological Exam: Awake - Skin Skin Exam: Dry, Intact, Normal Color, Warm Assessment and Plan (1) Septic shock Status: Acute (2) Acute respiratory failure Status: Acute (3) Urinary tract infection Status: Acute (4) Acute renal failure Status: Acute (5) Aspiration pneumonia Status: Acute (6) Diabetes mellitus Status: Chronic (7) Ventricular arrhythmia Status: Acute (8) Hyperthyroidism Status: Acute (9) Anemia Status: Acute (10) Prophylactic measure Status: Acute Attending/Attestation - Attestation I have personally seen and examined this patient.: Yes I have fully participated in the care of the patient.: Yes I have reviewed all pertinent clinical information, including history, physical exam and plan: Yes Notes (Text): Note: [employer] did not save my note; re-entered. Patient is status post trachestomy POD 6. patient has noted apical thrombus and LLE DVT; on heparin drip (previously on Eliquis prior to procedures). Patient was on Meropenem but it has fallen off; will need renewal; pending repe at procalcitonin shows improving 0.75 from 3.86 on 07/20/18. patient has been w/o fever since 07/19/18 and white count has normalized. Discussed with ID, no vancomycin needed. Per cardiology, once procedures are done, recommend for anticoagulation for 3 months. We will need to f/u with cardiology in regards to cardiac workup; especially for cardiac cath. Weaning/cpap trial per ICU. Patient encouraged for early mobility with aggressive PT/OT. Will need to speak to case management since patient does not have insurance. Discussed with cardiology since patient will need cardiac workup in light of intracardiac thrombus this week. Assessment/plan 1) Septic Shock Pneumonia Urinary Tract Infection Assessment/Plan * Infectious Disease (Dr. Brock) on case-->help appreciated * Tmax: 101.7 F (07/19/18) * Afebrile since * Criteria: leukocytosis, tachycardia * Source: aspiration pneumonia and urinary tract infection * 07/07/18: Urine: E. Coli * 07/09/18: Urine: No growth * 07/07/18: Blood culture: no growth after 5 days X2 * 07/09/18 Blood culture: no growth after 5 days X2 * 07/14/18: blood cultures: no growth to date * 07/14/18: sputum culture: yeast species * 07/14/18: Urine culture: no growth * 07/20/18: Blood culture: no growth after 5 days X2 * 07/20/18: Urine culture: no growth * 07/21/18: No Salmonella, shigella, or campobacter * 07/23/18 Urine culture: no growth * MRSA not detected * Antibiotics * Rocephin 2gm IVPB Q12H (07/14/18 through 07/20/18) * Meropenem 1 gm IV Q8H (active since 07/20/18)-->will need renewal by ID * Vancomycin 1 gram IVPB Q24H (being held since 07/20/18)-->vancomycin level 7.7-->per id to d/c vancomycin 2) Acute Respiratory Failure Pulmonary Edema Bilateral Pleural Effusion and Consolidations Likely Secondary to Aspiration Pneumonia Assessment/Plan * Required reintubated after 2nd fail attempt; patient underwent trachestomy 07/24/18 * off Solumedrol * Duonebs RQ4H PRN wheezing * MRSA screen: not detected * Sputum culture 07/09/18, 07/12/18, 07/14/18: yeast * Mycoplasma negative * Legionella was negative * Influenza negative * HIV negative * CT Chest 07/15/18: Moderate to large bilateral pleural effusion and associated consolidations, pathcy grround-glass infiltrates/edema noted within bilateral upper lobes * Chest xray (07/24/18): worsening infiltrates, satisfactory position of recently placed tracheostomy device. Satisfactory position of remaining support apparatus including venous access catheter and recently placed nasogastric tube * Rocephin 2gm IVPB Q12H (07/14/18 through 07/20/18) * Meropenem 1 gm IV Q8H (active since 07/20/18)-->will need renewal by ID * Vancomycin 1 gram IVPB Q24H (being held since 07/20/18) discontinued by ID * Bedside Thoracic U/S 07/17/18 did not reveal enough pleural effusion for Thoracentesis and per IR on 07/28/18 nothing to drain * Lasix 20 mg IV Q12H * offLevophed Drip; midodrine * Procalcitonin downtrending to 0.75. 3) Ventricular Tachycardia NSTEMI Apical Thrombus LLE DVT Assessment/Plan * Code Blue 07/10: SVT==>VT required amiodarone, magnesium, one shock delivered * Code Blue 07/20: vtach s/p amiodarone, fluid, calcium gluconate, required compressions and shock * Cardiology Dr Francisco on case help appreciated * Echocardiogram (07/07/18): left ventricle systolic function is borderline, ejection fraction is 45-50%, no aortic regurgitation is present, mitral regurgitation is mild. Mild tricuspid regurgitation. mild pulmonary hypertension, mild pulmonic valvular regurgitation * Contrast Echo: Large apical hypokinesis a large 30 x 20 mm soft tissue apical sessile mass suggestive of thrombus overall fraction 40%. Obtain a HUBERT or/consider stress card myopathy if coronary disease is excluded further findings per report * Amiodarone discontinued * Monitor electrolytes * Heparin drip changed to Eliquis 2.5 mg 2x/day 07/18/18 and then patient placed back on Heparin Drip 07/21/18 for pending Tracheostomy on 07/24/18 * Aspirin 81 mg PO 1x/day. Considering patient already on Eliquis and to reduce chance of bleeding, Plavix was discontinued 07/18/18. * Propranolol 5mg PO TID * Patient is on heparin drip * Will need to f/u cardiology in regards to cath 4) Urinary Tract Infection Assessment/Plan * Infectious disease on board help appreciated * 07/07/18: Urine: E. Coli * 07/09/18: Urine: No growth * 07/14/18: Urine culture: No growth * Urine Culture 07/20/18: No growth 5) Diabetes-->chronic Assessment/Plan * HgBA1c: 7.8 * Hypoglycemic protocol * Lantus 20 units subcutaneous at bedtime Q12 6) Acute on Chronic Renal Failure Assessment/Plan * Nephrology (Dr. Hyde) on board--> help appreciated * Patient will likely not need dialysis * Renal function continues to improve 7) Hyperthyroidism? Low TSH, and Free T4 Thyroid Storm Assessment/Plan * Note Thyroid studies taken before amiodarone was given (please advised this is not amiodarone induced her levels were abnormal prior) * Patient does not have prior thyroid history * Endocrinology (Dr. 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 She will need outpatient FNA Bx of the complex Left Lobe cyst (please see full report) * Methimazole 20mg PO TID * Propranolol 5 mg PO TID * Monitor LFTs 8) Anemia Likely Secondary to Chronic Diseases Assessment/Plan * Iron normal, TIBC low, Iron Saturation normal, Ferritin normal * Stool occult blood negative * B12 normal * Folate Normal * Being transfused 1 unit PRBC 07/22/18 * Patient is on Eliquis (which is being held and switched to Heparin Drip for Tracheostomy 07/24/18; and possible peg placement) for the Cardiac Apical Thrombus and on Aspirin for the NSTEMI (Plavix was discontinued 07/18/18); james bhakta is currently on heparin drip; awaiting possible cath 9) Transminitis-->improving * Likely secondary to Sepsis and Amiodarone (which was discontinued) * Hepatitis serology negative * Slightly elevated from normal on 07/20/18 but could be secondary to RN MANAGED CARE/Code Blue 07/20/18 10) Vitamin D deficiency Assessment plan * 50,000 international units once a week for at least 8-12 weeks started on 07/11/18 11) Thrombocytopenia-->resolved Assessment plan * Sepsis, vs Methimazole? * Patient was on Heparin Drip through 07/18/18 and then started on Eliquis on this date * Heparin drip for procedures * patient was on Eliquis prior but given trachestomy and now peg placement * Fibrinogen elevated * HIT and RUSTY both negative for HIT * Currently normalized 12) 13 mm Left Adrenal Nodule * As seen on CT Chest 07/16/18 * Will need outpatient follow up for cross sectional imaging for better characterization 13) Hypernatremia-->resolved * Free water 250 ml 3x/day via OGT * Na now normal 14) LLE DVT * Heparin drip changed to Eliquis 2.5 mg 2x/day 07/18/18 and then patient placed back on Heparin Drip 07/21/18. Patient has completed both trach and peg. Patient is awaiting cardiac cath next week. * Acute thrombosis of the left common femoral and femoral veins with severe reduction of the venous return on 07/18/18 venous doppler 15) Prophylactic measure * Protonix 40mg PO BID * Patient is on heparin drip * s/p trach and peg * Awaiting cardaic cath * Bilateral SCDs * Peg feedings * Subclavian line 07/14/18 * Off precedex * Off ativan * Note: speak to patient in alexis to assess neurologic status-->she does follow Disposition; Patient is status post trachoestomy and peg placement. Heparin drip. Patient is awaiting cardiac cath in light of cardiac thrombus. Patient is on IV abx for pneumonia and urinary tract infection. Cpap trial since patient is on trach. patient does not have insurance; please f/u with social/case management to start insurance process for potential LTAC/rehab. She will need significant rehab to regain muscle and strength.
--- NOTE | 2018-07-31 08:25 | CARD ---
APPROVED REPORT Date of service: 07/26/2018 EKG Measurement Heart [id number] <Conclusion> Normal sinus rhythm Nonspecific T wave abnormality Abnormal ECG
--- NOTE | 2018-07-31 08:39 | RAD ---
Date of service: 07/31/2018 HISTORY: congestion COMPARISON: 07/30/2018 FINDINGS: The tracheostomy tube is in stable position. The right central venous catheter terminates at the cavoatrial junction LUNGS: The lungs are well inflated. There is interval improved aeration in the right lower lobe. PLEURA: No pleural effusions or pneumothorax. CARDIOVASCULAR: The heart is normal in size. No aortic atherosclerotic calcification present. OSSEOUS STRUCTURES: Within normal limits for the patient's age. VISUALIZED UPPER ABDOMEN: Normal. OTHER FINDINGS: A nodular opacity overlying the left lobe is most IMPRESSION: Improving right lower lobe pneumonia. Stable position of tracheostomy tube and right central venous line.
[2018-07-31] MEDS: Multiple Vitamins Oral Solution PO SCH (09:27)
[2018-07-31] MEDS: Vitamins A & D Oint UD Foilpak TOP SCH ×2 (09:27→17:05)
[2018-07-31] MEDS: Pantoprazole 40 mg Susp UD PO SCH (09:27)
[2018-07-31] MEDS: Lactobacillus Acidophilus 500 MU Cap PO SCH ×2 (09:27→20:45)
[2018-07-31] MEDS: Propranolol 5 mg Tab PO SCH (09:28)
[2018-07-31] MEDS: Valproic Acid 250 mg/5 ml UD Cup PEG SCH ×2 (09:28→17:05)
--- NOTE | 2018-07-31 09:56 | US ---
Date of service: 07/28/2018 PROCEDURE: Ultrasound of chest for purposes of thoracentesis HISTORY: RIGHT SIDE PLEURAL EFFUSION COMPARISON: TECHNIQUE: Limb ultrasound right and left chest performed at bedside. FINDINGS: The patient placed in decubitus position ultrasound of the right back and left back was performed. There is a trace right effusion. The amount of pleural fluid is not sufficient for thoracentesis. IMPRESSION: Trace right pleural effusion. Pleural fluid is too small in volume for thoracentesis.
--- NOTE | 2018-07-31 13:03 | CP.CCUPN ---
<Brayan Gonzalez - Last Filed: 07/31/18 18:10> CCU Subjective - Physician Review Events Since Last Encounter (Free Text): 07/31/18 13:02 No acute events overnight Subjective (Free Text): 07/28/18 12:54 PGY1 Critical Care Progress Note for Dr. Carrillo Patient seen at bedside this morning. Patient is off sedation and is responsive to name and able to follow 1-step commands. Patient is currently with PEG and Tracheostomy. No bleeding. No acute issues. ROS could not be obtained due to clinical condition. Critical Care Time Spent (in minutes): 35 CCU Objective - Vital Signs / Intake & Output Vital Signs (Last 4 hours): Vital Signs Pulse Resp BP Pulse Ox 07/31/18 09:48 86 12 126/74 100 07/31/18 09:28 129/81 Intake and Output (Last 8hrs): Intake & Output 07/30/18 07/31/18 07/31/18 22:59 06:59 14:59 Intake Total 554.4 454.4 227.2 Output Total 670 600 190 Balance -115.6 -145.6 37.2 Weight 103 lb 8 oz Intake: Intake, IV Amount 54.4 54.4 27.2 Right Proximal Port 54.4 54.4 27.2 Subclavian Tube Feeding 400 400 200 Other 100 0 0 Output: Urine 670 600 190 Urethral ([place]) 670 600 190 - Physical Exam Head: Positive for: Atraumatic, Normocephalic Pupils: Positive for: PERRL. Negative for: Sluggish, Pinpoint Extroacular Muscles: Positive for: EOMI. Negative for: Gaze Palsy Conjunctiva: Positive for: Normal. Negative for: Injected, Icteric Mouth: Positive for: Moist Mucous Membranes Nose (External): Positive for: Atraumatic. Negative for: Abrasion, Contusion, Laceration Nose (Internal): Positive for: No Active Bleeding. Negative for: Epistaxis Neck: Positive for: Normal Range of Motion, Trachea Midline. Negative for: JVD Respiratory/Chest: Positive for: Good Air Exchange, Rhonchi (mild ronchi in bilateral bases), Other (intubated and ventilated). Negative for: Wheezes, Ral es Cardiovascular: Positive for: Normal S1, S2, Peripheal Pulses Present, Tachycardic. Negative for: Regular Rate and Rhythm Abdomen: Positive for: Normal Bowel Sounds. Negative for: Tenderness, Distention, Rebound, Guarding Upper Extremity: Positive for: Normal Inspection, NORMAL PULSES. Negative for: Cyanosis, Edema Lower Extremity: Positive for: Normal Inspection. Negative for: Edema, CALF TENDERNESS Neurological: Positive for: Other (weaning from sedation, intermittently opens eyes and tracks staff across room, but minimal spontaneous movements, not following verbal or pantomimed commands) Skin: Positive for: Warm, Dry, Normal Color Psychiatric: Positive for: Alert - Medications Active Medications: Active Medications Generic Name Dose Route Start Last Admin Trade Name Freq PRN Reason Stop Dose Admin Acetaminophen 650 mg 07/28/18 13:39 07/28/18 20:49 Tylenol 325mg Tab PEG 650 mg Q6 PRN Administration Pain, moderate (4-7) Albuterol/Ipratropium 3 ml 07/28/18 16:34 07/28/18 20:12 Duoneb 3 Mg/0.5 Mg (3 Ml) Ud INH 3 ml RQ4 PRN Administration Shortness of Breath Apixaban 5 mg 07/31/18 18:00 Eliquis PO BID MANOLO Ascorbic Acid 1,000 mg 07/24/18 10:00 07/31/18 09:28 Vitamin C 500 Mg Tab NG 1,000 mg DAILY MANOLO Administration Aspirin 81 mg 07/17/18 10:00 07/31/18 09:28 Aspirin Chewable GT 81 mg DAILY MANOLO Administration Insulin Aspart 0 unit 07/11/18 08:28 07/31/18 11:53 Novolog SC 4 units Q6 MANOLO Administration Protocol Insulin Glargine 20 unit 07/17/18 09:46 07/24/18 22:13 Lantus SC 20 u Q12 MANOLO Administration Lactobacillus Acidophilus 1 cap 07/08/18 20:00 07/31/18 09:27 Bacid Acidophilus PO 1 cap Q12H MANOLO Administration Methimazole 20 mg 07/27/18 14:00 07/31/18 06:18 Tapazole PO 20 mg Q8 MANOLO Administration Multivitamins/Vitamin C 5 ml 07/24/18 10:00 07/31/18 09:27 Multi-Delyn Liquid PO 5 ml DAILY MANOLO Administration Pantoprazole Sodium 40 mg 07/20/18 10:00 07/31/18 09:27 Protonix Susp PO 40 mg DAILY MANOLO Administration Rosuvastatin Calcium 2.5 mg 07/13/18 22:00 07/30/18 21:03 Crestor PO 2.5 mg HS MANOLO Administration Valproate Sodium 500 mg 07/28/18 10:45 07/31/18 09:28 Depakene Oral Soln PEG 500 mg BID MANOLO Administration Vitamin A 1 ea 07/28/18 18:00 07/31/18 09:27 Vitamin A & D Oint Ud Foilpak TOP 1 ea BID MANOLO Administration - Patient Studies Lab Studies: Lab Studies 07/31/18 07/31/18 07/31/18 Range/Units 11:27 05:56 05:56 WBC (4.8-10.8) K/uL RBC (3.80-5.20) Mil/uL Hgb (11.0-16.0) g/dL Hct (34.0-47.0) % MCV (81.0-99.0) fL MCH (27.0-31.0) pg MCHC (33.0-37.0) g/dL RDW (11.5-14.5) % Plt Count (130-400) K/uL MPV (7.2-11.7) fL Neut % (Auto) (50.0-75.0) % Lymph % (Auto) (20.0-40.0) % Toombs % (Auto) (0.0-10.0) % Eos % (Auto) (0.0-4.0) % Baso % (Auto) (0.0-2.0) % Neut # (Auto) (1.8-7.0) K/uL Lymph # (Auto) (1.0-4.3) K/uL [place]ombs # (Auto) (0.0-0.8) K/uL Eos # (Auto) (0.0-0.7) K/uL Baso # (Auto) (0.0-0.2) K/uL APTT 52 H (21-34) SECONDS Sodium 143 (132-148) mmol/L Potassium 4.0 (3.6-5.2) mmol/L Chloride 106 (98-107) mmol/L Carbon Dioxide 27 (22-30) mmol/L Anion Gap 14 (10-20) BUN 33 H (7-17) mg/dL Creatinine 1.0 (0.7-1.2) mg/dL Est GFR ( Amer) > 60 Est GFR (Non-Af Amer) 58 POC Glucose (mg/dL) 245 H (65-110) mg/dL Random Glucose 229 H (65-105) mg/dL Calcium 9.0 (8.6-10.4) mg/dl Phosphorus 4.1 (2.5-4.5) mg/dL Magnesium 2.4 H (1.6-2.3) mg/dL Total Bilirubin 0.5 (0.2-1.3) mg/dL AST 24 (14-36) U/L ALT 20 (9-52) U/L Alkaline Phosphatase 248 H (38-126) U/L Total Protein 7.3 (6.3-8.3) g/dL Albumin 3.2 L (3.5-5.0) g/dL Globulin 4.0 H (2.2-3.9) gm/dL Albumin/Globulin Ratio 0.8 L (1.0-2.1) Ddcr-4-Dfhtrajwvame Ab (<=20) [place] Beta-2 GPI IgG Ab (<=20) [facility] Beta-2 GPI IgM Ab (<=20) [facility] Phosphatidylserine IgG (<10) U/mL Phosphatidylserine IgA (<20) U/mL Phosphatidylserine IgM (<25) U/mL 07/31/18 07/30/18 07/30/18 Range/Units 05:56 17:24 00:00 WBC 6.0 (4.8-10.8) K/uL RBC 3.77 L (3.80-5.20) Mil/uL Hgb 11.2 (11.0-16.0) g/dL Hct 33.2 L (34.0-47.0) % MCV 88.0 (81.0-99.0) fL MCH 29.6 (27.0-31.0) pg MCHC 33.6 (33.0-37.0) g/dL RDW 15.1 H (11.5-14.5) % Plt Count 330 (130-400) K/uL MPV 9.0 (7.2-11.7) fL Neut % (Auto) 53.0 (50.0-75.0) % Lymph % (Auto) 27.9 (20.0-40.0) % Toombs % (Auto) 10.2 H (0.0-10.0) % Eos % (Auto) 7.4 H (0.0-4.0) % Baso % (Auto) 1.5 (0.0-2.0) % Neut # (Auto) 3.2 (1.8-7.0) K/uL Lymph # (Auto) 1.7 (1.0-4.3) K/uL [place]ombs # (Auto) 0.6 (0.0-0.8) K/uL Eos # (Auto) 0.4 (0.0-0.7) K/uL Baso # (Auto) 0.1 (0.0-0.2) K/uL APTT (21-34) SECONDS Sodium (132-148) mmol/L Potassium (3.6-5.2) mmol/L Chloride (98-107) mmol/L Carbon Dioxide (22-30) mmol/L Anion Gap (10-20) BUN (7-17) mg/dL Creatinine (0.7-1.2) mg/dL Est GFR ( Amer) Est GFR (Non-Af Amer) POC Glucose (mg/dL) 240 H 245 H (65-110) mg/dL Random Glucose (65-105) mg/dL Calcium (8.6-10.4) mg/dl Phosphorus (2.5-4.5) mg/dL Magnesium (1.6-2.3) mg/dL Total Bilirubin (0.2-1.3) mg/dL AST (14-36) U/L ALT (9-52) U/L Alkaline Phosphatase (38-126) U/L Total Protein (6.3-8.3) g/dL Albumin (3.5-5.0) g/dL Globulin (2.2-3.9) gm/dL Albumin/Globulin Ratio (1.0-2.1) Mlpc-8-Cdfswbdslfef Ab (<=20) [place] Beta-2 GPI IgG Ab (<=20) [facility] Beta-2 GPI IgM Ab (<=20) [facility] Phosphatidylserine IgG (<10) U/mL Phosphatidylserine IgA (<20) U/mL Phosphatidylserine IgM (<25) U/mL 07/29/18 07/29/1807/29/18 Range/Units 18:03 11:15 04:58 WBC (4.8-10.8) K/uL RBC (3.80-5.20) Mil/uL Hgb (11.0-16.0) g/dL Hct (34.0-47.0) % MCV (81.0-99.0) fL MCH (27.0-31.0) pg MCHC (33.0-37.0) g/dL RDW (11.5-14.5) % Plt Count (130-400) K/uL MPV (7.2-11.7) fL Neut % (Auto) (50.0-75.0) % Lymph % (Auto) (20.0-40.0) % [place]ombs % (Auto) (0.0-10.0) % Eos % (Auto) (0.0-4.0) % Baso % (Auto) (0.0-2.0) % Neut # (Auto) (1.8-7.0) K/uL Lymph # (Auto) (1.0-4.3) K/uL [place] # (Auto) (0.0-0.8) K/uL Eos # (Auto) (0.0-0.7) K/uL Baso # (Auto) (0.0-0.2) K/uL APTT (21-34) SECONDS Sodium (132-148) mmol/L Potassium (3.6-5.2) mmol/L Chloride (98-107) mmol/L Carbon Dioxide (22-30) mmol/L Anion Gap (10-20) BUN (7-17) mg/dL Creatinine (0.7-1.2) mg/dL Est GFR ( Amer) Est GFR (Non-Af Amer) POC Glucose (mg/dL) 196 H 240 H 137 H (65-110) mg/dL Random Glucose (65-105) mg/dL Calcium (8.6-10.4) mg/dl Phosphorus (2.5-4.5) mg/dL Magnesium (1.6-2.3) mg/dL Total Bilirubin (0.2-1.3) mg/dL AST (14-36) U/L ALT (9-52) U/L Alkaline Phosphatase (38-126) U/L Total Protein (6.3-8.3) g/dL Albumin (3.5-5.0) g/dL Globulin (2.2-3.9) gm/dL Albumin/Globulin Ratio (1.0-2.1) Qxyr-4-Takzolzjgdtl Ab (<=20) [place] Beta-2 GPI IgG Ab (<=20) [facility] Beta-2 GPI IgM Ab (<=20) [facility] Phosphatidylserine IgG (<10) U/mL Phosphatidylserine IgA (<20) U/mL Phosphatidylserine IgM (<25) U/mL 07/28/18 07/27/18 Range/Units 23:40 13:06 WBC (4.8-10.8) K/uL RBC (3.80-5.20) Mil/uL Hgb (11.0-16.0) g/dL Hct (34.0-47.0) % MCV (81.0-99.0) fL MCH (27.0-31.0) pg MCHC (33.0-37.0) g/dL RDW (11.5-14.5) % Plt Count (130-400) K/uL MPV (7.2-11.7) fL Neut % (Auto) (50.0-75.0) % Lymph % (Auto) (20.0-40.0) % [place]ombs % (Auto) (0.0-10.0) % Eos % (Auto) (0.0-4.0) % Baso % (Auto) (0.0-2.0) % Neut # (Auto) (1.8-7.0) K/uL Lymph # (Auto) (1.0-4.3) K/uL [place] # (Auto) (0.0-0.8) K/uL Eos # (Auto) (0.0-0.7) K/uL Baso # (Auto) (0.0-0.2) K/uL APTT (21-34) SECONDS Sodium (132-148) mmol/L Potassium (3.6-5.2) mmol/L Chloride (98-107) mmol/L Carbon Dioxide (22-30) mmol/L Anion Gap (10-20) BUN (7-17) mg/dL Creatinine (0.7-1.2) mg/dL Est GFR ( Amer) Est GFR (Non-Af Amer) POC Glucose (mg/dL) 153 H (65-110) mg/dL Random Glucose (65-105) mg/dL Calcium (8.6-10.4) mg/dl Phosphorus (2.5-4.5) mg/dL Magnesium (1.6-2.3) mg/dL Total Bilirubin (0.2-1.3) mg/dL AST (14-36) U/L ALT (9-52) U/L Alkaline Phosphatase (38-126) U/L Total Protein (6.3-8.3) g/dL Albumin (3.5-5.0) g/dL Globulin (2.2-3.9) gm/dL Albumin/Globulin Ratio (1.0-2.1) Mhme-5-Yvbjooduizci Ab <9 (<=20) [place] Beta-2 GPI IgG Ab <9 (<=20) [facility] Beta-2 GPI IgM Ab <9 (<=20) [facility] Phosphatidylserine IgG <10 (<10) U/mL Phosphatidylserine IgA <20 (<20) U/mL Phosphatidylserine IgM <25 (<25) U/mL Laboratory Results - last 24 hr 07/27/18 07/28/18 07/29/18 13:06 23:40 04:58 WBC RBC Hgb Hct MCV MCH MCHC RDW Plt Count MPV Neut % (Auto) Lymph % (Auto) Toombs % (Auto) Eos % (Auto) Baso % (Auto) Neut # (Auto) Lymph # (Auto) [place] # (Auto) Eos # (Auto) Baso # (Auto) APTT Sodium Potassium Chloride Carbon Dioxide Anion Gap BUN Creatinine Est GFR ( Amer) Est GFR (Non-Af Amer) POC Glucose (mg/dL) 153 H 137 H Random Glucose Calcium Phosphorus Magnesium Total Bilirubin AST ALT Alkaline Phosphatase Total Protein Albumin Globulin Albumin/Globulin Ratio Pebo-0-Oifjznfcsueb Ab <9 Beta-2 GPI IgG Ab <9 Beta-2 GPI IgM Ab <9 Phosphatidylserine IgG <10 Phosphatidylserine IgA <20 Phosphatidylserine IgM <25 07/29/18 07/29/18 07/30/18 11:15 18:03 00:00 WBC RBC Hgb Hct MCV MCH MCHC RDW Plt Count MPV Neut % (Auto) Lymph % (Auto) [place]ombs % (Auto) Eos % (Auto) Baso % (Auto) Neut # (Auto) Lymph # (Auto) [place] # (Auto) Eos # (Auto) Baso # (Auto) APTT Sodium Potassium Chloride Carbon Dioxide Anion Gap BUN Creatinine Est GFR ( Amer) Est GFR (Non-Af Amer) POC Glucose (mg/dL) 240 H 196 H 245 H Random Glucose Calcium Phosphorus Magnesium Total Bilirubin AST ALT Alkaline Phosphatase Total Protein Albumin Globulin Albumin/Globulin Ratio Hyvd-4-Lnsdvwlnjydb Ab Beta-2 GPI IgG Ab Beta-2 GPI IgM Ab Phosphatidylserine IgG Phosphatidylserine IgA Phosphatidylserine IgM 07/30/18 07/31/18 07/31/18 17:24 05:56 05:56 WBC 6.0 RBC 3.77 L Hgb 11.2 Hct 33.2 L MCV 88.0 MCH 29.6 MCHC 33.6 RDW 15.1 H Plt Count 330 MPV 9.0 Neut % (Auto) 53.0 Lymph % (Auto) 27.9 Toombs % (Auto) 10.2 H Eos % (Auto) 7.4 H Baso % (Auto) 1.5 Neut # (Auto) 3.2 Lymph # (Auto) 1.7 [place]ombs # (Auto) 0.6 Eos # (Auto) 0.4 Baso # (Auto) 0.1 APTT Sodium 143 Potassium 4.0 Chloride 106 Carbon Dioxide 27 Anion Gap 14 BUN 33 H Creatinine 1.0 Est GFR ( Amer) > 60 Est GFR (Non-Af Amer) 58 POC Glucose (mg/dL) 240 H Random Glucose 229 H Calcium 9.0 Phosphorus 4.1 Magnesium 2.4 H Total Bilirubin 0.5 AST 24 ALT 20 Alkaline Phosphatase 248 H Total Protein 7.3 Albumin 3.2 L Globulin 4.0 H Albumin/Globulin Ratio 0.8 L Lmml-7-Grqebiukxtse Ab Beta-2 GPI IgG Ab Beta-2 GPI IgM Ab Phosphatidylserine IgG Phosphatidylserine IgA Phosphatidylserine IgM 07/31/18 07/31/18 05:56 11:27 WBC RBC Hgb Hct MCV MCH MCHC RDW Plt Count MPV Neut % (Auto) Lymph % (Auto) [place]ombs % (Auto) Eos % (Auto) Baso % (Auto) Neut # (Auto) Lymph # (Auto) [place] # (Auto) Eos # (Auto) Baso # (Auto) APTT 52 H Sodium Potassium Chloride Carbon Dioxide Anion Gap BUN Creatinine Est GFR ( Amer) Est GFR (Non-Af Amer) POC Glucose (mg/dL) 245 H Random Glucose Calcium Phosphorus Magnesium Total Bilirubin AST ALT Alkaline Phosphatase Total Protein Albumin Globulin Albumin/Globulin Ratio Xqcv-0-Touzxwfxaimn Ab Beta-2 GPI IgG Ab Beta-2 GPI IgM Ab Phosphatidylserine IgG Phosphatidylserine IgA Phosphatidylserine IgM Fingerstick Blood Sugar Results: 245 Review of Systems - Review of Systems Systems not reviewed;Unavailable: Acuity of Condition Critical Care Progress Note - Nutrition Nutrition: Nutrition Category Date Time Status NPO Diet [DIET] Diets 07/25/18 Breakfast Active Assessment/Plan - Assessment and Plan (Free Text) Assessment: This is a 52 yo female with PMH of DM2 and hypercholesterolemia who presented to with cough, post-tussive emesis, and malaise x2-3 weeks. She was admitted to the ICU for respiratory failure and acute renal failure. Of note, patient was CODE BLUE on 07/10 (V-tach). Remains intubated after failing extubation, as patient vomited just hours after extubation. Currently with tracheostomy (performed by Dr. Melchor.) Patient is hemodynamically stable, and is status-post PEG placement with Dr. Murray and GI Fellow Dr. Amaya. Plan Neuro Anoxic brain injury - Hemodynamically stable - Precedex discontinued Agitation - valproic acid 500mg liquid BID Pulm Chronic Hypoxic Respiratory Failure secondary to pulmonary congestion, renal failure * Status-post trach * CXR shows congestion and R lower lobe infiltrate * Continue bronchodilators * C-PAP trials daily - today tolerated 4 hours C-PAP - Goal SaO2 > 92% and paO2 > 55 * FiO2 titrated down to 30% (for goal PO2/FiO2 ratio > 300) * CT angiogram obtained 07/26 to rule out PE -- Negative for PE. - Duonebs 2 ml INH RQ4 - Status-post tracheostomy 07/[address] Melchor - CXR official report (07/25): worsening infiltrates, satisfactory position of recently placed tracheostomy device, Satisfactory position of remaining support apparatus including venous access catheter and recently placed nasogastric tube CV Hypotension - Normotensive: 116/68 - Discontinued: Levophed - Discontinued: Midodrine - Cardiac arrest from unknown etiology - Cardiology consulted. Appreciate recs. - Repeat ECHO from shows left ventricular thrombus; - Doppler show LLE DVT, right cephalic vein thrombus - Discontinued: Heparin drip - Start Eliquis 5mg PO BID Daily - Continue daily aspirin 81 mg, crestor 2.5 mg PO HS - Discontinued propranolol 5mg PO TID CHADsVASc Score= 3 * Stroke risk 3.2% per year * 4.6% risk of stroke/TIA/systemic embolism MSK - OOB as tolerated with assistance - Early Mobilization highly recommended - PT/OT - Discontinue central line (right subclavian) - PICC line order placed GI - Start: Vital 1.2 tube feeds Max Rate #35 - Protonix 40 mg IV daily - Dr. Murray Consulted: recommendations appreciated - Pelvic/ trasnvaginal ultrasound performed - Patient's states patient still has regular menstrual cycles monthly - Monitor H/H Renal - Acute renal failure resolving - Avoid nephrotoxic drugs Heme: - Anemia: Hgb=11.2; improved - No acute issues - Continue to monitor H/H Endo - ISS for coverage, q6h - Continue Methimazole 20mg PO Q8 - FSH LH and Prolactin Infectious Disease - Discontinued: Merrem 1 gm daily - Discontinued: vancomycin 1 gm daily - Negative cultures - ID following, appreciate all recs Dispo: Pending another PS/CPAP trial, tracheostomy placed 07/24 FEN: NPO, on Tube Feeds Access: Peripheral IVs, right subclavian TLC, ETT, OGT Consults: Palliative, Endo, Nephro, Cardio, Neuro, Cardio, GI Ppx: Protonix for GI, SCDs Code status: FULL Next of kin: Martina Isaacs () Prognosis: Guarded Patient seen, reviewed, and case discussed with attending, Dr. Lorena Gonzalez PGY1 <Thang Carrillo - Last Filed: 08/07/18 13:49> CCU Objective - Vital Signs / Intake & Output Vital Signs (Last 4 hours): Vital Signs Temp Pulse Resp BP Pulse Ox 08/07/18 13:01 101 H 21 148/79 100 08/07/18 13:00 100 H 24 148/79 99 08/07/18 12:00 97.4 F L 93 H 16 110/68 100 08/07/18 11:00 87 18 113/68 100 08/07/18 10:00 95 H 16 130/74 100 Intake and Output (Last 8hrs): Intake & Output 1108/07/18 08/07/18 22:59 06:59 14:59 Intake Total 700 460 450 Balance 700 460 450 Weight 100 lb 6.4 oz Intake: Tube Feeding 400 400 350 Other 300 60 100 Other: # Voids Urine, Voided 0 0 0 # Bowel Movements 0 0 0 - Medications Active Medications: Active Medications Generic Name Dose Route Start Last Admin Trade Name Freq PRN Reason Stop Dose Admin Acetaminophen 650 mg 07/28/18 13:39 08/05/18 21:35 Tylenol 325mg Tab PEG 650 mg Q6 PRN Administration Pain, moderate (4-7) Albuterol/Ipratropium 3 ml 07/28/18 16:34 08/06/18 19:45 Duoneb 3 Mg/0.5 Mg (3 Ml) Ud INH 3 ml RQ4 PRN Administration Shortness of Breath Apixaban 5 mg 07/31/18 18:00 08/07/18 09:00 Eliquis PO 5 mg BID MANOLO Administration Ascorbic Acid 1,000 mg 07/24/18 10:00 08/07/18 09:01 Vitamin C 500 Mg Tab NG 1,000 mg DAILY MANOLO Administration Aspirin 81 mg 07/17/18 10:00 08/07/18 09:00 Aspirin Chewable GT 81 mg DAILY MANOLO Administration Bacitracin 1 gm 08/05/18 22:00 08/07/18 09:02 Bacitracin TOP 1 appl BID MANOLO Administration Insulin Aspart 0 unit 07/11/18 08:28 08/07/18 06:35 Novolog SC 2 units Q6 MANOLO Administration Protocol Insulin Glargine 15 unit 08/02/18 22:00 08/07/18 09:17 Lantus SC 10 u Q12 MANOLO Administration Lactobacillus Acidophilus 1 cap 07/08/18 20:00 08/07/18 09:00 Bacid Acidophilus PO 1 cap Q12H MANOLO Administration Methimazole 20 mg 07/27/18 14:00 08/07/18 06:36 Tapazole PO 20 mg Q8 MANOLO Administration Modafinil 100 mg 08/02/18 10:00 08/07/18 09:17 Provigil PEG Not Given DAILY MANOLO Multivitamins 1 tab 08/06/18 10:00 08/07/18 09:00 Hexavitamin PEG 1 tab DAILY MANOLO Administration Pantoprazole Sodium 40 mg 07/20/18 10:00 08/07/18 09:00 Protonix Susp PO 40 mg DAILY MANOLO Administration Vitamin A 1 ea 07/28/18 18:00 08/07/18 09:00 Vitamin A & D Oint Ud Foilpak TOP 1 ea BID MANOLO Administration - Patient Studies Lab Studies: Lab Studies 08/07/18 08/07/18 08/07/18 Range/Units 06:27 06:26 06:24 WBC 8.5 (4.8-10.8) K/uL RBC 2.96 L (3.80-5.20) Mil/uL Hgb 8.9 L (11.0-16.0) g/dL Hct 26.1 L (34.0-47.0) % MCV 88.2 (81.0-99.0) fL MCH 29.9 (27.0-31.0) pg MCHC 33.9 (33.0-37.0) g/dL RDW 14.8 H (11.5-14.5) % Plt Count 301 (130-400) K/uL MPV 9.0 (7.2-11.7) fL Neut % (Auto) 70.0 (50.0-75.0) % Lymph % (Auto) 17.0 L (20.0-40.0) % [place]ombs % (Auto) 8.3 (0.0-10.0) % Eos % (Auto) 3.7 (0.0-4.0) % Baso % (Auto) 1.0 (0.0-2.0) % Neut # (Auto) 5.9 (1.8-7.0) K/uL Lymph # (Auto) 1.4 (1.0-4.3) K/uL [place]ombs # (Auto) 0.7 (0.0-0.8) K/uL Eos # (Auto) 0.3 (0.0-0.7) K/uL Baso # (Auto) 0.1 (0.0-0.2) K/uL Sodium 142 (132-148) mmol/L Potassium 4.3 (3.6-5.2) mmol/L Chloride 109 H (98-107) mmol/L Carbon Dioxide 25 (22-30) mmol/L Anion Gap 12 (10-20) BUN 41 H (7-17) mg/dL Creatinine 1.0 (0.7-1.2) mg/dL Est GFR ( Amer) > 60 Est GFR (Non-Af Amer) 58 POC Glucose (mg/dL) 186 H (65-110) mg/dL Random Glucose 162 H (65-105) mg/dL Calcium 9.4 (8.6-10.4) mg/dl Phosphorus 5.0 H (2.5-4.5) mg/dL Magnesium 2.6 H (1.6-2.3) mg/dL Total Bilirubin 0.7 (0.2-1.3) mg/dL AST 37 H D (14-36) U/L ALT 72 H D (9-52) U/L Alkaline Phosphatase 258 H (38-126) U/L Total Protein 7.1 (6.3-8.3) g/dL Albumin 3.1 L (3.5-5.0) g/dL Globulin 4.0 H (2.2-3.9) gm/dL Albumin/Globulin Ratio 0.8 L (1.0-2.1) 08/06/18 08/06/18 08/06/18 Range/Units 23:41 17:28 11:59 WBC (4.8-10.8) K/uL RBC (3.80-5.20) Mil/uL Hgb (11.0-16.0) g/dL Hct (34.0-47.0) % MCV (81.0-99.0) fL MCH (27.0-31.0) pg MCHC (33.0-37.0) g/dL RDW (11.5-14.5) % Plt Count (130-400) K/uL MPV (7.2-11.7) fL Neut % (Auto) (50.0-75.0) % Lymph % (Auto) (20.0-40.0) % [place]bs % (Auto) (0.0-10.0) % Eos % (Auto) (0.0-4.0) % Baso % (Auto) (0.0-2.0) % Neut # (Auto) (1.8-7.0) K/uL Lymph # (Auto) (1.0-4.3) K/uL [place]bs # (Auto) (0.0-0.8) K/uL Eos # (Auto) (0.0-0.7) K/uL Baso # (Auto) (0.0-0.2) K/uL Sodium (132-148) mmol/L Potassium (3.6-5.2) mmol/L Chloride (98-107) mmol/L Carbon Dioxide (22-30) mmol/L Anion Gap (10-20) BUN (7-17) mg/dL Creatinine (0.7-1.2) mg/dL Est GFR ( Amer) Est GFR (Non-Af Amer) POC Glucose (mg/dL) 224 H 188 H 190 H (65-110) mg/dL Random Glucose (65-105) mg/dL Calcium (8.6-10.4) mg/dl Phosphorus (2.5-4.5) mg/dL Magnesium (1.6-2.3) mg/dL Total Bilirubin (0.2-1.3) mg/dL AST (14-36) U/L ALT (9-52) U/L Alkaline Phosphatase (38-126) U/L Total Protein (6.3-8.3) g/dL Albumin (3.5-5.0) g/dL Globulin (2.2-3.9) gm/dL Albumin/Globulin Ratio (1.0-2.1) Laboratory Results - last 24 hr 08/06/18 08/06/18 08/06/18 11:59 17:28 23:41 WBC RBC Hgb Hct MCV MCH MCHC RDW Plt Count MPV Neut % (Auto) Lymph % (Auto) [place] % (Auto) Eos % (Auto) Baso % (Auto) Neut # (Auto) Lymph # (Auto) [place] # (Auto) Eos # (Auto) Baso # (Auto) Sodium Potassium Chloride Carbon Dioxide Anion Gap BUN Creatinine Est GFR ( Amer) Est GFR (Non-Af Amer) POC Glucose (mg/dL) 190 H 188 H 224 H Random Glucose Calcium Phosphorus Magnesium Total Bilirubin AST ALT Alkaline Phosphatase Total Protein Albumin Globulin Albumin/Globulin Ratio 08/07/18 08/07/18 08/07/18 06:24 06:26 06:27 WBC 8.5 RBC 2.96 L Hgb 8.9 L Hct 26.1 L MCV 88.2 MCH 29.9 MCHC 33.9 RDW 14.8 H Plt Count 301 MPV 9.0 Neut % (Auto) 70.0 Lymph % (Auto) 17.0 L [place] % (Auto) 8.3 Eos % (Auto) 3.7 Baso % (Auto) 1.0 Neut # (Auto) 5.9 Lymph # (Auto) 1.4 [place] # (Auto) 0.7 Eos # (Auto) 0.3 Baso # (Auto) 0.1 Sodium 142 Potassium 4.3 Chloride 109 H Carbon Dioxide 25 Anion Gap 12 BUN 41 H Creatinine 1.0 Est GFR ( Amer) > 60 Est GFR (Non-Af Amer) 58 POC Glucose (mg/dL) 186 H Random Glucose 162 H Calcium 9.4 Phosphorus 5.0 H Magnesium 2.6 H Total Bilirubin 0.7 AST 37 H D ALT 72 H D Alkaline Phosphatase 258 H Total Protein 7.1 Albumin 3.1 L Globulin 4.0 H Albumin/Globulin Ratio 0.8 L Critical Care Progress Note - Nutrition Nutrition: Nutrition Category Date Time Status NPO Diet [DIET] Diets 07/25/18 Breakfast Active Assessment/Plan - Assessment and Plan (Free Text) Assessment: Patient was seen and examined in the rounds. Status post a tracheostomy. Stable. Continue the current treatment. Aggressive weaning process.
--- NOTE | 2018-07-31 13:34 | RAD ---
Date of service: 07/31/2018 HISTORY: verify left PICC COMPARISON: Chest radiograph performed approximately 7 hours prior FINDINGS: LUNGS: No active pulmonary disease. PLEURA: No significant pleural effusion identified, no pneumothorax apparent. CARDIOVASCULAR: Aortic atherosclerotic calcifications. Cardiomediastinal silhouette stably prominent OSSEOUS STRUCTURES: Unchanged. VISUALIZED UPPER ABDOMEN: Stressed made to unchanged. OTHER FINDINGS: New left upper extremity PICC with catheter tip at the cavoatrial junction. Right subclavian access central venous catheter, unchanged. Tracheostomy, unchanged IMPRESSION: New left upper extremity PICC in satisfactory position. No other significant interval change.
[2018-07-31 15:47] LABS: CARDIOLIPIN AB (IGA) <11 APL (<=11); CARDIOLIPIN AB (IGG) <14 GPL (<=14); CARDIOLIPIN AB (IGM) <12 MPL (<=12)
--- NOTE | 2018-07-31 18:12 | CP.PCM.PN ---
Subjective - Date & Time of Evaluation Date of Evaluation: 07/31/18 Time of Evaluation: 16:20 - Subjective Subjective: Patient was seen and examined. patient seen with nurse, Not following direction,As per RN must speak in [place] for patient to follow commands. On Vent Objective - Vital Signs/Intake and Output Vital Signs (last 24 hours): Temp Pulse Resp BP Pulse Ox 97.2 F L 86 17 116/68 100 07/31/18 16:00 07/31/18 15:48 07/31/18 15:48 07/31/18 15:48 07/31/18 16:00 Intake and Output: 07/31/18 07/31/18 06:59 18:59 Intake Total 781.6 534.0 Output Total 960 490 Balance -178.4 44.0 - Medications Medications: Current Medications Acetaminophen (Tylenol 325mg Tab) 650 mg PEG Q6 PRN PRN Reason: Pain, moderate (4-7) Last Admin: 07/28/18 20:49 Dose: 650 mg Albuterol/Ipratropium (Duoneb 3 Mg/0.5 Mg (3 Ml) Ud) 3 ml INH RQ4 PRN PRN Reason: Shortness of Breath Last Admin: 07/28/18 20:12 Dose: 3 ml Apixaban (Eliquis) 5 mg PO BID [facility] Last Admin: 07/31/18 17:08 Dose: 5 mg Ascorbic Acid (Vitamin C 500 Mg Tab) 1,000 mg NG DAILY [facility] Last Admin: 07/31/18 09:28 Dose: 1,000 mg Aspirin (Aspirin Chewable) 81 mg GT DAILY [facility] Last Admin: 07/31/18 09:28 Dose: 81 mg Insulin Aspart (Novolog) 0 unit SC Q6 [facility]; Protocol Last Admin: 07/31/18 17:54 Dose: 2 units Insulin Glargine (Lantus) 20 unit SC Q12 [facility] Last Admin: 07/24/18 22:13 Dose: 20 u Lactobacillus Acidophilus (Bacid Acidophilus) 1 cap PO Q12H [facility] Last Admin: 07/31/18 09:27 Dose: 1 cap Methimazole (Tapazole) 20 mg PO Q8 [facility] Last Admin: 07/31/18 13:16 Dose: 20 mg Multivitamins/Vitamin C (Multi-Delyn Liquid) 5 ml PO DAILY [facility] Last Admin: 07/31/18 09:27 Dose: 5 ml Pantoprazole Sodium (Protonix Susp) 40 mg PO DAILY [facility] Last Admin: 07/31/18 09:27 Dose: 40 mg Rosuvastatin Calcium (Crestor) 2.5 mg PO HS [facility] Last Admin: 07/30/18 21:03 Dose: 2.5 mg Valproate Sodium (Depakene Oral Soln) 500 mg PEG BID [facility] Last Admin: 07/31/18 17:05 Dose: 500 mg Vitamin A (Vitamin A & D Oint Ud Foilpak) 1 ea TOP BID [facility] Last Admin: 07/31/18 17:05 Dose: 1 ea - Labs Labs: 07/31/18 05:56 07/31/18 05:56 PT 17.7 SECONDS (9.7-12.2) H 07/28/18 06:19 INR 1.6 07/28/18 06:19 APTT 52 SECONDS (21-34) H 07/31/18 05:56 - Constitutional Appears: Chronically Ill - Head Exam Head Exam: NORMAL INSPECTION - ENT Exam ENT Exam: Mucous Membranes Moist - Neck Exam Neck Exam: absent: Full ROM (trach) Assessment and Plan - Assessment and Plan (Free Text) Plan: 1) Acute Respiratory Failure ( likely due to VT,apical thrombus,Pulmonary Edema Bilateral Pleural Effusion and Consolidations Likely Secondary to Aspiration Pneumonia) On Vent. managed by critical care team s/p Trach trial of cpap 2)s/p Septic Shock-treated. off antibiotics,no fever Pneumonia Urinary Tract Infection Infectious Disease Dr. Brock 3) Apical Thrombus Ventricular Tachycardia NSTEMI LLE DVT On Eliquis and asprin 4) Urinary Tract Infection-treated 5) Diabetes * Lantus 20 units subcutaneous at bedtime Q12 6) Acute on Chronic Renal Failure-resolved 7) Hyperthyroidism? Low TSH, and Free T4 Thyroid [facility] (Dr. 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 She will need outpatient FNA Bx of the complex Left Lobe cyst (please see full report) Methimazole 20mg PO TID and Propranolol 5 mg PO TID 8) Anemia Likely Secondary to Chronic Diseases 9) Transminitis-->improving 12) 13 mm Left Adrenal Nodule * As seen on CT Chest 07/16/18 * Will need outpatient follow up for cross sectional imaging for better characterization 15) Prophylactic measure * Protonix 40mg * Patient is on eliquis Disposition; Patient is status post trachoestomy and peg placement. Heparin drip. Patient is awaiting cardiac cath in light of cardiac thrombus. Patient is on IV abx for pneumonia and urinary tract infection. Cpap trial since patient is on trach. patient does not have insurance; please f/u with social/case management to start insurance process for potential LTAC/rehab. She will need significant rehab to regain muscle and strength.
[2018-07-31] MEDS: Rosuvastatin Calcium 2.5 mg Tab PO SCH (21:13)
[2018-08-01] MEDS: (Novolog) Insulin Aspart, Recombinant 100 u/ml 10 ml vial SC SCH ×4 (00:38→18:00)
[2018-08-01 06:37] LABS: BASO # 0.1 K/uL (0.0-0.2); EOS # 0.3 K/uL (0.0-0.7); EOS % 5.3 % (0.0-4.0); LYMPH # 1.5 K/uL (1.0-4.3); LYMPH % 27.2 % (20.0-40.0); MEAN CELL VOLUME 88.5 fL (81.0-99.0); MONO # 0.5 K/uL (0.0-0.8); MONO % 9.7 % (0.0-10.0); NEUT # 3.1 K/uL (1.8-7.0); NEUT % 56.8 % (50.0-75.0); NRBC % 0.1 % (0.0-2.0); RBC 3.68 Mil/uL (3.80-5.20); WHITE BLOOD COUNT 5.4 K/uL (4.8-10.8)
[2018-08-01 06:45] LABS: ABG ALLEN TEST POS; ARTERIAL BLOOD GAS HCO3 27.6 mmol/L (21-28); ARTERIAL BLOOD GAS HEMOGLOBIN 11.3 g/dL (11.7-17.4); ARTERIAL BLOOD GAS O2 SAT 98.5 % (95-98); ARTERIAL BLOOD GAS PCO2 40 mm/Hg (35-45); ARTERIAL BLOOD GAS PH 7.45 (7.35-7.45); ARTERIAL BLOOD GAS PO2 104 mm/Hg (80-100)
[2018-08-01 06:59] LABS: ALB/GLOB RATIO 0.8 (1.0-2.1); ALBUMIN 3.3 g/dL (3.5-5.0); ALT/SGPT 25 U/L (9-52); AST/SGOT 24 U/L (14-36); BLOOD UREA NITROGEN 37 mg/dL (7-17); CALCIUM 9.3 mg/dl (8.6-10.4); GFR NON-AFRICAN AMERICAN 58
[2018-08-01] MEDS: Valproic Acid 250 mg/5 ml UD Cup PEG SCH ×2 (09:32→10:42)
[2018-08-01] MEDS: Multiple Vitamins Oral Solution PO SCH (09:32)
[2018-08-01] MEDS: Pantoprazole 40 mg Susp UD PO SCH (09:32)
[2018-08-01] MEDS: Lactobacillus Acidophilus 500 MU Cap PO SCH ×2 (09:32→20:36)
[2018-08-01] MEDS: Vitamins A & D Oint UD Foilpak TOP SCH ×2 (09:34→18:58)
--- NOTE | 2018-08-01 10:31 | CP.CCUPN ---
<Brayan Gonzalez - Last Filed: 08/01/18 16:21> CCU Subjective - Physician Review Events Since Last Encounter (Free Text): 08/01/18 15:56 No acute events overnight Subjective (Free Text): 08/01/18 15:56 PGY1 Critical Care Progress Note for Dr. Lozada Patient seen at bedside this morning. Patient is responsive to name and able to follow 1-step commands. Patient is currently with PEG and Tracheostomy. PICC line was placed. No bleeding. No acute issues. ROS could not be obtained due to clinical condition. CCU Objective - Vital Signs / Intake & Output Intake and Output (Last 8hrs): Intake & Output 07/31/18 08/01/18 08/01/18 22:59 06:59 14:59 Intake Total 500 500 Output Total 250 Balance 500 250 Weight 104 lb 6.4 oz Intake: Tube Feeding 400 400 Other 100 100 Output: Urine 250 Urine, Voided 250 Other: # Bowel Movements 1 - Physical Exam Head: Positive for: Atraumatic, Normocephalic Pupils: Positive for: PERRL. Negative for: Sluggish, Pinpoint Extroacular Muscles: Positive for: EOMI. Negative for: Gaze Palsy Conjunctiva: Positive for: Normal. Negative for: Injected, Icteric Mouth: Positive for: Moist Mucous Membranes Nose (External): Positive for: Atraumatic. Negative for: Abrasion, Contusion, Laceration Nose (Internal): Positive for: No Active Bleeding. Negative for: Epistaxis Neck: Positive for: Normal Range of Motion, Trachea Midline. Negative for: JVD Respiratory/Chest: Positive for: Good Air Exchange, Rhonchi (mild ronchi in bilateral bases), Other (trach). Negative for: Wheezes, Rales Cardiovascular: Positive for: Normal S1, S2, Peripheal Pulses Present, Tachycardic. Negative for: Regular Rate and Rhythm Abdomen: Positive for: Normal Bowel Sounds. Negative for: Tenderness, Distention, Rebound, Guarding Upper Extremity: Positive for: Normal Inspection, NORMAL PULSES. Negative for: Cyanosis, Edema Lower Extremity: Positive for: Normal Inspection. Negative for: Edema, CALF TENDERNESS Neurological: Positive for: Other Skin: Positive for: Warm, Dry, Normal Color Psychiatric: Positive for: Alert - Medications Active Medications: Active Medications Generic Name Dose Route Start Last Admin Trade Name Freq PRN Reason Stop Dose Admin Acetaminophen 650 mg 07/28/18 13:39 08/01/18 09:31 Tylenol 325mg Tab PEG 650 mg Q6 PRN Administration Pain, moderate (4-7) Albuterol/Ipratropium 3 ml 07/28/18 16:34 07/28/18 20:12 Duoneb 3 Mg/0.5 Mg (3 Ml) Ud INH 3 ml RQ4 PRN Administration Shortness of Breath Apixaban 5 mg 07/31/18 18:00 08/01/18 09:39 Eliquis PO 5 mg BID MANOLO Administration Ascorbic Acid 1,000 mg 07/24/18 10:00 08/01/18 09:32 Vitamin C 500 Mg Tab NG 1,000 mg DAILY MANOLO Administration Aspirin 81 mg 07/17/18 10:00 08/01/18 09:32 Aspirin Chewable GT 81 mg DAILY MANOLO Administration Insulin Aspart 0 unit 07/11/18 08:28 08/01/18 05:18 Novolog SC 4 units Q6 MANOLO Administration Protocol Insulin Glargine 20 unit 07/17/18 09:46 07/24/18 22:13 Lantus SC 20 u Q12 MANOLO Administration Lactobacillus Acidophilus 1 cap 07/08/18 20:00 08/01/18 09:32 Bacid Acidophilus PO 1 cap Q12H MANOLO Administration Methimazole 20 mg 07/27/18 14:00 08/01/18 05:19 Tapazole PO 20 mg Q8 MANOLO Administration Multivitamins/Vitamin C 5 ml 07/24/18 10:00 08/01/18 09:32 Multi-Delyn Liquid PO 5 ml DAILY MANOLO Administration Pantoprazole Sodium 40 mg 07/20/18 10:00 08/01/18 09:32 Protonix Susp PO 40 mg DAILY MANOLO Administration Rosuvastatin Calcium 2.5 mg 07/13/18 22:00 07/31/18 21:13 Crestor PO 2.5 mg HS MANOLO Administration Vitamin A 1 ea 07/28/18 18:00 08/01/18 09:34 Vitamin A & D Oint Ud Foilpak TOP 1 ea BID MANOLO Administration - Patient Studies Lab Studies: Lab Studies 08/01/18 08/01/18 08/01/18 Range/Units 06:30 06:28 06:28 WBC 5.4 (4.8-10.8) K/uL RBC 3.68 L (3.80-5.20) Mil/uL Hgb 11.0 (11.0-16.0) g/dL Hct 32.5 L (34.0-47.0) % MCV 88.5 (81.0-99.0) fL MCH 30.0 (27.0-31.0) pg MCHC 34.0 (33.0-37.0) g/dL RDW 15.0 H (11.5-14.5) % Plt Count 309 (130-400) K/uL MPV 9.0 (7.2-11.7) fL Neut % (Auto) 56.8 (50.0-75.0) % Lymph % (Auto) 27.2 (20.0-40.0) % Butler % (Auto) 9.7 (0.0-10.0) % Eos % (Auto) 5.3 H (0.0-4.0) % Baso % (Auto) 1.0 (0.0-2.0) % Neut # (Auto) 3.1 (1.8-7.0) K/uL Lymph # (Auto) 1.5 (1.0-4.3) K/uL Butler # (Auto) 0.5 (0.0-0.8) K/uL Eos # (Auto) 0.3 (0.0-0.7) K/uL Baso # (Auto) 0.1 (0.0-0.2) K/uL Puncture Site Lradial pCO2 40 (35-45) mm/Hg pO2 104 H (80-100) mm/Hg HCO3 27.6 (21-28) mmol/L ABG pH 7.45 (7.35-7.45) ABG Total CO2 29.0 H (22-28) mmol/L ABG O2 Saturation 98.5 H (95-98) % ABG Base Excess 3.5 H (-2.0-3.0) mmol/L ABG Hemoglobin 11.3 L (11.7-17.4) g/dL ABG Carboxyhemoglobin 1.8 H (0.5-1.5) % POC ABG HHb (Measured) 1.5 (0.0-5.0) % ABG Methemoglobin 1.1 (0.0-3.0) % Kevon Test Pos A-a O2 Difference 60.0 mm/Hg Respiratory Index 0.6 Hgb O2 Saturation 95.6 (95.0-98.0) % Vent Mode Prvc Mechanical Rate 12 FiO2 30.0 % Tidal Volume 400 PEEP 5 Sodium 146 (132-148) mmol/L Potassium 3.6 (3.6-5.2) mmol/L Chloride 106 (98-107) mmol/L Carbon Dioxide 28 (22-30) mmol/L Anion Gap 15 (10-20) BUN 37 H (7-17) mg/dL Creatinine 1.0 (0.7-1.2) mg/dL Est GFR ( Amer) > 60 Est GFR (Non-Af Amer) 58 POC Glucose (mg/dL) (65-110) mg/dL Random Glucose 229 H (65-105) mg/dL Calcium 9.3 (8.6-10.4) mg/dl Magnesium 2.5 H (1.6-2.3) mg/dL Total Bilirubin 0.5 (0.2-1.3) mg/dL AST 24 (14-36) U/L ALT 25 (9-52) U/L Alkaline Phosphatase 237 H (38-126) U/L Total Protein 7.4 (6.3-8.3) g/dL Albumin 3.3 L (3.5-5.0) g/dL Globulin 4.0 H (2.2-3.9) gm/dL Albumin/Globulin Ratio 0.8 L (1.0-2.1) Anti-Phospholipid Intrp Anti-Cardiolipin IgG Ab (<=14) GPL Anti-Cardiolipin IgA Ab (<=11) APL Anti-Cardiolipin IgM Ab (<=12) MPL 08/01/18 08/01/18 07/31/18 Range/Units 05:13 00:30 17:32 WBC (4.8-10.8) K/uL RBC (3.80-5.20) Mil/uL Hgb (11.0-16.0) g/dL Hct (34.0-47.0) % MCV (81.0-99.0) fL MCH (27.0-31.0) pg MCHC (33.0-37.0) g/dL RDW (11.5-14.5) % Plt Count (130-400) K/uL MPV (7.2-11.7) fL Neut % (Auto) (50.0-75.0) % Lymph % (Auto) (20.0-40.0) % Butler % (Auto) (0.0-10.0) % Eos % (Auto) (0.0-4.0) % Baso % (Auto) (0.0-2.0) % Neut # (Auto) (1.8-7.0) K/uL Lymph # (Auto) (1.0-4.3) K/uL Butler # (Auto) (0.0-0.8) K/uL Eos # (Auto) (0.0-0.7) K/uL Baso # (Auto) (0.0-0.2) K/uL Puncture Site pCO2 (35-45) mm/Hg pO2 (80-100) mm/Hg HCO3 (21-28) mmol/L ABG pH (7.35-7.45) ABG Total CO2 (22-28) mmol/L ABG O2 Saturation (95-98) % ABG Base Excess (-2.0-3.0) mmol/L ABG Hemoglobin (11.7-17.4) g/dL ABG Carboxyhemoglobin (0.5-1.5) % POC ABG HHb (Measured) (0.0-5.0) % ABG Methemoglobin (0.0-3.0) % Kevon Test A-a O2 Difference mm/Hg Respiratory Index Hgb O2 Saturation (95.0-98.0) % Vent Mode Mechanical Rate FiO2 % Tidal Volume PEEP Sodium (132-148) mmol/L Potassium (3.6-5.2) mmol/L Chloride (98-107) mmol/L Carbon Dioxide (22-30) mmol/L Anion Gap (10-20) BUN (7-17) mg/dL Creatinine (0.7-1.2) mg/dL Est GFR ( Amer) Est GFR (Non-Af Amer) POC Glucose (mg/dL) 240 H 257 H 183 H (65-110) mg/dL Random Glucose (65-105) mg/dL Calcium (8.6-10.4) mg/dl Magnesium (1.6-2.3) mg/dL Total Bilirubin (0.2-1.3) mg/dL AST (14-36) U/L ALT (9-52) U/L Alkaline Phosphatase (38-126) U/L Total Protein (6.3-8.3) g/dL Albumin (3.5-5.0) g/dL Globulin (2.2-3.9) gm/dL Albumin/Globulin Ratio (1.0-2.1) Anti-Phospholipid Intrp Anti-Cardiolipin IgG Ab (<=14) GPL Anti-Cardiolipin IgA Ab (<=11) APL Anti-Cardiolipin IgM Ab (<=12) MPL 07/31/18 07/31/18 07/30/18 Range/Units 11:27 05:28 23:45 WBC (4.8-10.8) K/uL RBC (3.80-5.20) Mil/uL Hgb (11.0-16.0) g/dL Hct (34.0-47.0) % MCV (81.0-99.0) fL MCH (27.0-31.0) pg MCHC (33.0-37.0) g/dL RDW (11.5-14.5) % Plt Count (130-400) K/uL MPV (7.2-11.7) fL Neut % (Auto) (50.0-75.0) % Lymph % (Auto) (20.0-40.0) % Butler % (Auto) (0.0-10.0) % Eos % (Auto) (0.0-4.0) % Baso % (Auto) (0.0-2.0) % Neut # (Auto) (1.8-7.0) K/uL Lymph # (Auto) (1.0-4.3) K/uL Butler # (Auto) (0.0-0.8) K/uL Eos # (Auto) (0.0-0.7) K/uL Baso # (Auto) (0.0-0.2) K/uL Puncture Site pCO2 (35-45) mm/Hg pO2 (80-100) mm/Hg HCO3 (21-28) mmol/L ABG pH (7.35-7.45) ABG Total CO2 (22-28) mmol/L ABG O2 Saturation (95-98) % ABG Base Excess (-2.0-3.0) mmol/L ABG Hemoglobin (11.7-17.4) g/dL ABG Carboxyhemoglobin (0.5-1.5) % POC ABG HHb (Measured) (0.0-5.0) % ABG Methemoglobin (0.0-3.0) % Kevon Test A-a O2 Difference mm/Hg Respiratory Index Hgb O2 Saturation (95.0-98.0) % Vent Mode Mechanical Rate FiO2 % Tidal Volume PEEP Sodium (132-148) mmol/L Potassium (3.6-5.2) mmol/L Chloride (98-107) mmol/L Carbon Dioxide (22-30) mmol/L Anion Gap (10-20) BUN (7-17) mg/dL Creatinine (0.7-1.2) mg/dL Est GFR ( Amer) Est GFR (Non-Af Amer) POC Glucose (mg/dL) 245 H 218 H 263 H (65-110) mg/dL Random Glucose (65-105) mg/dL Calcium (8.6-10.4) mg/dl Magnesium (1.6-2.3) mg/dL Total Bilirubin (0.2-1.3) mg/dL AST (14-36) U/L ALT (9-52) U/L Alkaline Phosphatase (38-126) U/L Total Protein (6.3-8.3) g/dL Albumin (3.5-5.0) g/dL Globulin (2.2-3.9) gm/dL Albumin/Globulin Ratio (1.0-2.1) Anti-Phospholipid Intrp Anti-Cardiolipin IgG Ab (<=14) GPL Anti-Cardiolipin IgA Ab (<=11) APL Anti-Cardiolipin IgM Ab (<=12) MPL 07/30/18 07/30/18 07/30/18 Range/Units 17:24 11:09 05:06 WBC (4.8-10.8) K/uL RBC (3.80-5.20) Mil/uL Hgb (11.0-16.0) g/dL Hct (34.0-47.0) % MCV (81.0-99.0) fL MCH (27.0-31.0) pg MCHC (33.0-37.0) g/dL RDW (11.5-14.5) % Plt Count (130-400) K/uL MPV (7.2-11.7) fL Neut % (Auto) (50.0-75.0) % Lymph % (Auto) (20.0-40.0) % Butler % (Auto) (0.0-10.0) % Eos % (Auto) (0.0-4.0) % Baso % (Auto) (0.0-2.0) % Neut # (Auto) (1.8-7.0) K/uL Lymph # (Auto) (1.0-4.3) K/uL Butler # (Auto) (0.0-0.8) K/uL Eos # (Auto) (0.0-0.7) K/uL Baso # (Auto) (0.0-0.2) K/uL Puncture Site pCO2 (35-45) mm/Hg pO2 (80-100) mm/Hg HCO3 (21-28) mmol/L ABG pH (7.35-7.45) ABG Total CO2 (22-28) mmol/L ABG O2 Saturation (95-98) % ABG Base Excess (-2.0-3.0) mmol/L ABG Hemoglobin (11.7-17.4) g/dL ABG Carboxyhemoglobin (0.5-1.5) % POC ABG HHb (Measured) (0.0-5.0) % ABG Methemoglobin (0.0-3.0) % Kevon Test A-a O2 Difference mm/Hg Respiratory Index Hgb O2 Saturation (95.0-98.0) % Vent Mode Mechanical Rate FiO2 % Tidal Volume PEEP Sodium (132-148) mmol/L Potassium (3.6-5.2) mmol/L Chloride (98-107) mmol/L Carbon Dioxide (22-30) mmol/L Anion Gap (10-20) BUN (7-17) mg/dL Creatinine (0.7-1.2) mg/dL Est GFR ( Amer) Est GFR (Non-Af Amer) POC Glucose (mg/dL) 240 H 162 H 243 H (65-110) mg/dL Random Glucose (65-105) mg/dL Calcium (8.6-10.4) mg/dl Magnesium (1.6-2.3) mg/dL Total Bilirubin (0.2-1.3) mg/dL AST (14-36) U/L ALT (9-52) U/L Alkaline Phosphatase (38-126) U/L Total Protein (6.3-8.3) g/dL Albumin (3.5-5.0) g/dL Globulin (2.2-3.9) gm/dL Albumin/Globulin Ratio (1.0-2.1) Anti-Phospholipid Intrp Anti-Cardiolipin IgG Ab (<=14) GPL Anti-Cardiolipin IgA Ab (<=11) APL Anti-Cardiolipin IgM Ab (<=12) MPL 07/27/18 Range/Units 13:06 WBC (4.8-10.8) K/uL RBC (3.80-5.20) Mil/uL Hgb (11.0-16.0) g/dL Hct (34.0-47.0) % MCV (81.0-99.0) fL MCH (27.0-31.0) pg MCHC (33.0-37.0) g/dL RDW (11.5-14.5) % Plt Count (130-400) K/uL MPV (7.2-11.7) fL Neut % (Auto) (50.0-75.0) % Lymph % (Auto) (20.0-40.0) % Butler % (Auto) (0.0-10.0) % Eos % (Auto) (0.0-4.0) % Baso % (Auto) (0.0-2.0) % Neut # (Auto) (1.8-7.0) K/uL Lymph # (Auto) (1.0-4.3) K/uL Butler # (Auto) (0.0-0.8) K/uL Eos # (Auto) (0.0-0.7) K/uL Baso # (Auto) (0.0-0.2) K/uL Puncture Site pCO2 (35-45) mm/Hg pO2 (80-100) mm/Hg HCO3 (21-28) mmol/L ABG pH (7.35-7.45) ABG Total CO2 (22-28) mmol/L ABG O2 Saturation (95-98) % ABG Base Excess (-2.0-3.0) mmol/L ABG Hemoglobin (11.7-17.4) g/dL ABG Carboxyhemoglobin (0.5-1.5) % POC ABG HHb (Measured) (0.0-5.0) % ABG Methemoglobin (0.0-3.0) % Kevon Test A-a O2 Difference mm/Hg Respiratory Index Hgb O2 Saturation (95.0-98.0) % Vent Mode Mechanical Rate FiO2 % Tidal Volume PEEP Sodium (132-148) mmol/L Potassium (3.6-5.2) mmol/L Chloride (98-107) mmol/L Carbon Dioxide (22-30) mmol/L Anion Gap (10-20) BUN (7-17) mg/dL Creatinine (0.7-1.2) mg/dL Est GFR ( Amer) Est GFR (Non-Af Amer) POC Glucose (mg/dL) (65-110) mg/dL Random Glucose (65-105) mg/dL Calcium (8.6-10.4) mg/dl Magnesium (1.6-2.3) mg/dL Total Bilirubin (0.2-1.3) mg/dL AST (14-36) U/L ALT (9-52) U/L Alkaline Phosphatase (38-126) U/L Total Protein (6.3-8.3) g/dL Albumin (3.5-5.0) g/dL Globulin (2.2-3.9) gm/dL Albumin/Globulin Ratio (1.0-2.1) Anti-Phospholipid Intrp see note Anti-Cardiolipin IgG Ab <14 (<=14) GPL Anti-Cardiolipin IgA Ab <11 (<=11) APL Anti-Cardiolipin IgM Ab <12 (<=12) MPL Laboratory Results - last 24 hr 07/27/18 07/30/18 07/30/18 13:06 05:06 11:09 WBC RBC Hgb Hct MCV MCH MCHC RDW Plt Count MPV Neut % (Auto) Lymph % (Auto) Butler % (Auto) Eos % (Auto) Baso % (Auto) Neut # (Auto) Lymph # (Auto) Butler # (Auto) Eos # (Auto) Baso # (Auto) Puncture Site pCO2 pO2 HCO3 ABG pH ABG Total CO2 ABG O2 Saturation ABG Base Excess ABG Hemoglobin ABG Carboxyhemoglobin POC ABG HHb (Measured) ABG Methemoglobin Kevon Test A-a O2 Difference Respiratory Index Hgb O2 Saturation Vent Mode Mechanical Rate FiO2 Tidal Volume PEEP Sodium Potassium Chloride Carbon Dioxide Anion Gap BUN Creatinine Est GFR ( Amer) Est GFR (Non-Af Amer) POC Glucose (mg/dL) 243 H 162 H Random Glucose Calcium Magnesium Total Bilirubin AST ALT Alkaline Phosphatase Total Protein Albumin Globulin Albumin/Globulin Ratio Anti-Phospholipid Intrp see note Anti-Cardiolipin IgG Ab <14 Anti-Cardiolipin IgA Ab <11 Anti-Cardiolipin IgM Ab <12 07/30/18 07/30/18 07/31/18 17:24 23:45 05:28 WBC RBC Hgb Hct MCV MCH MCHC RDW Plt Count MPV Neut % (Auto) Lymph % (Auto) Butler % (Auto) Eos % (Auto) Baso % (Auto) Neut # (Auto) Lymph # (Auto) Butler # (Auto) Eos # (Auto) Baso # (Auto) Puncture Site pCO2 pO2 HCO3 ABG pH ABG Total CO2 ABG O2 Saturation ABG Base Excess ABG Hemoglobin ABG Carboxyhemoglobin POC ABG HHb (Measured) ABG Methemoglobin Kevon Test A-a O2 Difference Respiratory Index Hgb O2 Saturation Vent Mode Mechanical Rate FiO2 Tidal Volume PEEP Sodium Potassium Chloride Carbon Dioxide Anion Gap BUN Creatinine Est GFR ( Amer) Est GFR (Non-Af Amer) POC Glucose (mg/dL) 240 H 263 H 218 H Random Glucose Calcium Magnesium Total Bilirubin AST ALT Alkaline Phosphatase Total Protein Albumin Globulin Albumin/Globulin Ratio Anti-Phospholipid Intrp Anti-Cardiolipin IgG Ab Anti-Cardiolipin IgA Ab Anti-Cardiolipin IgM Ab 07/31/18 07/31/18 08/01/18 11:27 17:32 00:30 WBC RBC Hgb Hct MCV MCH MCHC RDW Plt Count MPV Neut % (Auto) Lymph % (Auto) Butler % (Auto) Eos % (Auto) Baso % (Auto) Neut # (Auto) Lymph # (Auto) Butler # (Auto) Eos # (Auto) Baso # (Auto) Puncture Site pCO2 pO2 HCO3 ABG pH ABG Total CO2 ABG O2 Saturation ABG Base Excess ABG Hemoglobin ABG Carboxyhemoglobin POC ABG HHb (Measured) ABG Methemoglobin Kevon Test A-a O2 Difference Respiratory Index Hgb O2 Saturation Vent Mode Mechanical Rate FiO2 Tidal Volume PEEP Sodium Potassium Chloride Carbon Dioxide Anion Gap BUN Creatinine Est GFR ( Amer) Est GFR (Non-Af Amer) POC Glucose (mg/dL) 245 H 183 H 257 H Random Glucose Calcium Magnesium Total Bilirubin AST ALT Alkaline Phosphatase Total Protein Albumin Globulin Albumin/Globulin Ratio Anti-Phospholipid Intrp Anti-Cardiolipin IgG Ab Anti-Cardiolipin IgA Ab Anti-Cardiolipin IgM Ab 08/01/18 08/01/18 08/01/18 05:13 06:28 06:28 WBC 5.4 RBC 3.68 L Hgb 11.0 Hct 32.5 L MCV 88.5 MCH 30.0 MCHC 34.0 RDW 15.0 H Plt Count 309 MPV 9.0 Neut % (Auto) 56.8 Lymph % (Auto) 27.2 Butler % (Auto) 9.7 Eos % (Auto) 5.3 H Baso % (Auto) 1.0 Neut # (Auto) 3.1 Lymph # (Auto) 1.5 Butler # (Auto) 0.5 Eos # (Auto) 0.3 Baso # (Auto) 0.1 Puncture Site pCO2 pO2 HCO3 ABG pH ABG Total CO2 ABG O2 Saturation ABG Base Excess ABG Hemoglobin ABG Carboxyhemoglobin POC ABG HHb (Measured) ABG Methemoglobin Kevon Test A-a O2 Difference Respiratory Index Hgb O2 Saturation Vent Mode Mechanical Rate FiO2 Tidal Volume PEEP Sodium 146 Potassium 3.6 Chloride 106 Carbon Dioxide 28 Anion Gap 15 BUN 37 H Creatinine 1.0 Est GFR ( Amer) > 60 Est GFR (Non-Af Amer) 58 POC Glucose (mg/dL) 240 H Random Glucose 229 H Calcium 9.3 Magnesium 2.5 H Total Bilirubin 0.5 AST 24 ALT 25 Alkaline Phosphatase 237 H Total Protein 7.4 Albumin 3.3 L Globulin 4.0 H Albumin/Globulin Ratio 0.8 L Anti-Phospholipid Intrp Anti-Cardiolipin IgG Ab Anti-Cardiolipin IgA Ab Anti-Cardiolipin IgM Ab 08/01/18 06:30 WBC RBC Hgb Hct MCV MCH MCHC RDW Plt Count MPV Neut % (Auto) Lymph % (Auto) Butler % (Auto) Eos % (Auto) Baso % (Auto) Neut # (Auto) Lymph # (Auto) Butler # (Auto) Eos # (Auto) Baso # (Auto) Puncture Site Lradial pCO2 40 pO2 104 H HCO3 27.6 ABG pH 7.45 ABG Total CO2 29.0 H ABG O2 Saturation 98.5 H ABG Base Excess 3.5 H ABG Hemoglobin 11.3 L ABG Carboxyhemoglobin 1.8 H POC ABG HHb (Measured) 1.5 ABG Methemoglobin 1.1 Kevon Test Pos A-a O2 Difference 60.0 Respiratory Index 0.6 Hgb O2 Saturation 95.6 Vent Mode Prvc Mechanical Rate 12 FiO2 30.0 Tidal Volume 400 PEEP 5 Sodium Potassium Chloride Carbon Dioxide Anion Gap BUN Creatinine Est GFR ( Amer) Est GFR (Non-Af Amer) POC Glucose (mg/dL) Random Glucose Calcium Magnesium Total Bilirubin AST ALT Alkaline Phosphatase Total Protein Albumin Globulin Albumin/Globulin Ratio Anti-Phospholipid Intrp Anti-Cardiolipin IgG Ab Anti-Cardiolipin IgA Ab Anti-Cardiolipin IgM Ab Fingerstick Blood Sugar Results: 240 Review of Systems - Review of Systems Systems not reviewed;Unavailable: Acuity of Condition Critical Care Progress Note - Nutrition Nutrition: Nutrition Category Date Time Status NPO Diet [DIET] Diets 07/25/18 Breakfast Active Assessment/Plan - Assessment and Plan (Free Text) Assessment: This is a 52 yo female with PMH of DM2 and hypercholesterolemia who presented to with cough, post-tussive emesis, and malaise x2-3 weeks. She was admitted to the ICU for respiratory failure and acute renal failure. Of note, patient was CODE BLUE on 07/10 (V-tach). Remains intubated after failing extubation, as patient vomited just hours after extubation. Currently with tracheostomy (performed by Dr. Melchor.) Patient is hemodynamically stable, and is status-post PEG placement with Dr. Murray and GI Fellow Dr. Amaya. Plan Neuro Anoxic brain injury - Hemodynamically stable - Start Modafinil 100mg PO Daily Agitation (resolved) - Discontinued: valproic acid 500mg liquid BID Pulm Chronic Hypoxic Respiratory Failure secondary to pulmonary congestion, renal failure * Status-post trach * CXR shows congestion and R lower lobe infiltrate * Continue bronchodilators * C-PAP trials daily - today tolerated 4 hours C-PAP - Goal SaO2 > 92% and paO2 > 55 * FiO2 titrated down to 30% (for goal PO2/FiO2 ratio > 300) * CT angiogram obtained 07/26 to rule out PE -- Negative for PE. - Duonebs 2 ml INH RQ4 - Status-post tracheostomy 07/[address] Melchor CV Hypotension - Normotensive: 135/77 - Discontinued: Levophed - Discontinued: Midodrine - Cardiac arrest from unknown etiology - Cardiology consulted. Appreciate recs. - Repeat ECHO from shows left ventricular thrombus; - Doppler show LLE DVT, right cephalic vein thrombus - Discontinued: Heparin drip - Start Eliquis 5mg PO BID Daily - Continue daily aspirin 81 mg, crestor 2.5 mg PO HS - Discontinued propranolol 5mg PO TID CHADsVASc Score= 3 * Stroke risk 3.2% per year * 4.6% risk of stroke/TIA/systemic embolism - PICC line placed (central line removed) MSK - OOB as tolerated with assistance - Early Mobilization highly recommended - PT/OT - Discontinue central line (right subclavian) - PICC line order placed GI - Start: Vital 1.2 tube feeds Max Rate #35 - Protonix 40 mg IV daily - Dr. Murray Consulted: recommendations appreciated - Pelvic/ trasnvaginal ultrasound performed - Patient's states patient still has regular menstrual cycles monthly - Monitor H/H Renal - Acute renal failure resolving - Avoid nephrotoxic drugs Heme: - Anemia: Hgb=11.2; improved - No acute issues - Continue to monitor H/H Endo - ISS for coverage, q6h - Continue Methimazole 20mg PO Q8 - FSH LH and Prolactin Infectious Disease - Discontinued: Merrem 1 gm daily - Discontinued: vancomycin 1 gm daily - Negative cultures - ID following, appreciate all recs Dispo: Pending another PS/CPAP trial, tracheostomy placed 07/24 FEN: NPO, on Tube Feeds Access: Peripheral IVs, right subclavian TLC, ETT, OGT Consults: Palliative, Endo, Nephro, Cardio, Neuro, Cardio, GI Ppx: Protonix for GI, SCDs Code status: FULL Next of kin: Martina Isaacs () Prognosis: Guarded Patient seen, reviewed, and case discussed with attending, Dr. Neville Gonzalez PGY1 <Errol Lozada S - Last Filed: 08/01/18 18:16> CCU Subjective - Physician Review Critical Care Time Spent (in minutes): 45 CCU Objective - Vital Signs / Intake & Output Vital Signs (Last 4 hours): Vital Signs Temp Pulse Resp BP Pulse Ox 08/01/18 18:00 98.0 F 08/01/18 17:00 90 12 128/76 100 08/01/18 16:00 98.1 F 82 10 L 124/76 100 08/01/18 15:00 89 11 L 135/77 100 Intake and Output (Last 8hrs): Intake & Output 08/01/18 08/01/18 08/01/18 06:59 14:59 22:59 Intake Total 500 250 200 Output Total 250 800 Balance 250 250 -600 Weight 104 lb 6.4 oz Intake: Intake, IV Amount 0 Right Distal Port 0 Subclavian Right Proximal Port 0 Subclavian rt hand side port 0 Tube Feeding 400 250 200 Other 100 Output: Urine 250 800 Urethral ([place]) 400 Urine, Voided 250 400 - Medications Active Medications: Active Medications Generic Name Dose Route Start Last Admin Trade Name Freq PRN Reason Stop Dose Admin Acetaminophen 650 mg 07/28/18 13:39 08/01/18 09:31 Tylenol 325mg Tab PEG 650 mg Q6 PRN Administration Pain, moderate (4-7) Albuterol/Ipratropium 3 ml 07/28/18 16:34 07/28/18 20:12 Duoneb 3 Mg/0.5 Mg (3 Ml) Ud INH 3 ml RQ4 PRN Administration Shortness of Breath Apixaban 5 mg 07/31/18 18:00 08/01/18 09:39 Eliquis PO 5 mg BID MANOLO Administration Ascorbic Acid 1,000 mg 07/24/18 10:00 08/01/18 09:32 Vitamin C 500 Mg Tab NG 1,000 mg DAILY MANOLO Administration Aspirin 81 mg 07/17/18 10:00 08/01/18 09:32 Aspirin Chewable GT 81 mg DAILY MANOLO Administration Insulin Aspart 0 unit 07/11/18 08:28 08/01/18 05:18 Novolog SC 4 units Q6 MANOLO Administration Protocol Insulin Glargine 20 unit 07/17/18 09:46 07/24/18 22:13 Lantus SC 20 u Q12 MANOLO Administration Insulin Glargine 10 unit 08/01/18 11:45 Lantus SC Q12 MANOLO Lactobacillus Acidophilus 1 cap 07/08/18 20:00 08/01/18 09:32 Bacid Acidophilus PO 1 cap Q12H MANOLO Administration Methimazole 20 mg 07/27/18 14:00 08/01/18 05:19 Tapazole PO 20 mg Q8 MANOLO Administration Modafinil 100 mg 08/02/18 10:00 Provigil PEG DAILY MANOLO Multivitamins/Vitamin C 5 ml 07/24/18 10:00 08/01/18 09:32 Multi-Delyn Liquid PO 5 ml DAILY MANOLO Administration Pantoprazole Sodium 40 mg 07/20/18 10:00 08/01/18 09:32 Protonix Susp PO 40 mg DAILY MANOLO Administration Rosuvastatin Calcium 2.5 mg 07/13/18 22:00 07/31/18 21:13 Crestor PO 2.5 mg HS MANOLO Administration Vitamin A 1 ea 07/28/18 18:00 08/01/18 09:34 Vitamin A & D Oint Ud Foilpak TOP 1 ea BID MANOLO Administration - Patient Studies Lab Studies: Microbiology Studies 07/10/18 11:01 Mycobacterial Culture - Preliminary Other: Please Indicate Lab Studies 08/01/18 08/01/18 08/01/18 Range/Units 11:41 11:25 06:30 WBC (4.8-10.8) K/uL RBC (3.80-5.20) Mil/uL Hgb (11.0-16.0) g/dL Hct (34.0-47.0) % MCV (81.0-99.0) fL MCH (27.0-31.0) pg MCHC (33.0-37.0) g/dL RDW (11.5-14.5) % Plt Count (130-400) K/uL MPV (7.2-11.7) fL Neut % (Auto) (50.0-75.0) % Lymph % (Auto) (20.0-40.0) % Butler % (Auto) (0.0-10.0) % Eos % (Auto) (0.0-4.0) % Baso % (Auto) (0.0-2.0) % Neut # (Auto) (1.8-7.0) K/uL Lymph # (Auto) (1.0-4.3) K/uL Butler # (Auto) (0.0-0.8) K/uL Eos # (Auto) (0.0-0.7) K/uL Baso # (Auto) (0.0-0.2) K/uL Puncture Site Lradial pCO2 40 (35-45) mm/Hg pO2 104 H (80-100) mm/Hg HCO3 27.6 (21-28) mmol/L ABG pH 7.45 (7.35-7.45) ABG Total CO2 29.0 H (22-28) mmol/L ABG O2 Saturation 98.5 H (95-98) % ABG Base Excess 3.5 H (-2.0-3.0) mmol/L ABG Hemoglobin 11.3 L (11.7-17.4) g/dL ABG Carboxyhemoglobin 1.8 H (0.5-1.5) % POC ABG HHb (Measured) 1.5 (0.0-5.0) % ABG Methemoglobin 1.1 (0.0-3.0) % Kevon Test Pos A-a O2 Difference 60.0 mm/Hg Respiratory Index 0.6 Hgb O2 Saturation 95.6 (95.0-98.0) % Vent Mode Prvc Mechanical Rate 12 FiO2 30.0 % Tidal Volume 400 PEEP 5 Sodium (132-148) mmol/L Potassium (3.6-5.2) mmol/L Chloride (98-107) mmol/L Carbon Dioxide (22-30) mmol/L Anion Gap (10-20) BUN (7-17) mg/dL Creatinine (0.7-1.2) mg/dL Est GFR ( Amer) Est GFR (Non-Af Amer) POC Glucose (mg/dL) 258 H (65-110) mg/dL Random Glucose (65-105) mg/dL Calcium (8.6-10.4) mg/dl Magnesium (1.6-2.3) mg/dL Total Bilirubin (0.2-1.3) mg/dL AST (14-36) U/L ALT (9-52) U/L Alkaline Phosphatase (38-126) U/L Total Protein (6.3-8.3) g/dL Albumin (3.5-5.0) g/dL Globulin (2.2-3.9) gm/dL Albumin/Globulin Ratio (1.0-2.1) Valproic Acid 19.6 L (50.0-100.0) ug/mL 08/01/18 08/01/18 08/01/18 Range/Units 06:28 06:28 05:13 WBC 5.4 (4.8-10.8) K/uL RBC 3.68 L (3.80-5.20) Mil/uL Hgb 11.0 (11.0-16.0) g/dL Hct 32.5 L (34.0-47.0) % MCV 88.5 (81.0-99.0) fL MCH 30.0 (27.0-31.0) pg MCHC 34.0 (33.0-37.0) g/dL RDW 15.0 H (11.5-14.5) % Plt Count 309 (130-400) K/uL MPV 9.0 (7.2-11.7) fL Neut % (Auto) 56.8 (50.0-75.0) % Lymph % (Auto) 27.2 (20.0-40.0) % Butler % (Auto) 9.7 (0.0-10.0) % Eos % (Auto) 5.3 H (0.0-4.0) % Baso % (Auto) 1.0 (0.0-2.0) % Neut # (Auto) 3.1 (1.8-7.0) K/uL Lymph # (Auto) 1.5 (1.0-4.3) K/uL Butler # (Auto) 0.5 (0.0-0.8) K/uL Eos # (Auto) 0.3 (0.0-0.7) K/uL Baso # (Auto) 0.1 (0.0-0.2) K/uL Puncture Site pCO2 (35-45) mm/Hg pO2 (80-100) mm/Hg HCO3 (21-28) mmol/L ABG pH (7.35-7.45) ABG Total CO2 (22-28) mmol/L ABG O2 Saturation (95-98) % ABG Base Excess (-2.0-3.0) mmol/L ABG Hemoglobin (11.7-17.4) g/dL ABG Carboxyhemoglobin (0.5-1.5) % POC ABG HHb (Measured) (0.0-5.0) % ABG Methemoglobin (0.0-3.0) % Kevon Test A-a O2 Difference mm/Hg Respiratory Index Hgb O2 Saturation (95.0-98.0) % Vent Mode Mechanical Rate FiO2 % Tidal Volume PEEP Sodium 146 (132-148) mmol/L Potassium 3.6 (3.6-5.2) mmol/L Chloride 106 (98-107) mmol/L Carbon Dioxide 28 (22-30) mmol/L Anion Gap 15 (10-20) BUN 37 H (7-17) mg/dL Creatinine 1.0 (0.7-1.2) mg/dL Est GFR ( Amer) > 60 Est GFR (Non-Af Amer) 58 POC Glucose (mg/dL) 240 H (65-110) mg/dL Random Glucose 229 H (65-105) mg/dL Calcium 9.3 (8.6-10.4) mg/dl Magnesium 2.5 H (1.6-2.3) mg/dL Total Bilirubin 0.5 (0.2-1.3) mg/dL AST 24 (14-36) U/L ALT 25 (9-52) U/L Alkaline Phosphatase 237 H (38-126) U/L Total Protein 7.4 (6.3-8.3) g/dL Albumin 3.3 L (3.5-5.0) g/dL Globulin 4.0 H (2.2-3.9) gm/dL Albumin/Globulin Ratio 0.8 L (1.0-2.1) Valproic Acid (50.0-100.0) ug/mL 08/01/18 07/31/18 07/30/18 Range/Units 00:30 05:28 23:45 WBC (4.8-10.8) K/uL RBC (3.80-5.20) Mil/uL Hgb (11.0-16.0) g/dL Hct (34.0-47.0) % MCV (81.0-99.0) fL MCH (27.0-31.0) pg MCHC (33.0-37.0) g/dL RDW (11.5-14.5) % Plt Count (130-400) K/uL MPV (7.2-11.7) fL Neut % (Auto) (50.0-75.0) % Lymph % (Auto) (20.0-40.0) % Butler % (Auto) (0.0-10.0) % Eos % (Auto) (0.0-4.0) % Baso % (Auto) (0.0-2.0) % Neut # (Auto) (1.8-7.0) K/uL Lymph # (Auto) (1.0-4.3) K/uL Butler # (Auto) (0.0-0.8) K/uL Eos # (Auto) (0.0-0.7) K/uL Baso # (Auto) (0.0-0.2) K/uL Puncture Site pCO2 (35-45) mm/Hg pO2 (80-100) mm/Hg HCO3 (21-28) mmol/L ABG pH (7.35-7.45) ABG Total CO2 (22-28) mmol/L ABG O2 Saturation (95-98) % ABG Base Excess (-2.0-3.0) mmol/L ABG Hemoglobin (11.7-17.4) g/dL ABG Carboxyhemoglobin (0.5-1.5) % POC ABG HHb (Measured) (0.0-5.0) % ABG Methemoglobin (0.0-3.0) % Kevon Test A-a O2 Difference mm/Hg Respiratory Index Hgb O2 Saturation (95.0-98.0) % Vent Mode Mechanical Rate FiO2 % Tidal Volume PEEP Sodium (132-148) mmol/L Potassium (3.6-5.2) mmol/L Chloride (98-107) mmol/L Carbon Dioxide (22-30) mmol/L Anion Gap (10-20) BUN (7-17) mg/dL Creatinine (0.7-1.2) mg/dL Est GFR ( Amer) Est GFR (Non-Af Amer) POC Glucose (mg/dL) 257 H 218 H 263 H (65-110) mg/dL Random Glucose (65-105) mg/dL Calcium (8.6-10.4) mg/dl Magnesium (1.6-2.3) mg/dL Total Bilirubin (0.2-1.3) mg/dL AST (14-36) U/L ALT (9-52) U/L Alkaline Phosphatase (38-126) U/L Total Protein (6.3-8.3) g/dL Albumin (3.5-5.0) g/dL Globulin (2.2-3.9) gm/dL Albumin/Globulin Ratio (1.0-2.1) Valproic Acid (50.0-100.0) ug/mL 07/30/18 07/30/18 Range/Units 11:09 05:06 WBC (4.8-10.8) K/uL RBC (3.80-5.20) Mil/uL Hgb (11.0-16.0) g/dL Hct (34.0-47.0) % MCV (81.0-99.0) fL MCH (27.0-31.0) pg MCHC (33.0-37.0) g/dL RDW (11.5-14.5) % Plt Count (130-400) K/uL MPV (7.2-11.7) fL Neut % (Auto) (50.0-75.0) % Lymph % (Auto) (20.0-40.0) % Butler % (Auto) (0.0-10.0) % Eos % (Auto) (0.0-4.0) % Baso % (Auto) (0.0-2.0) % Neut # (Auto) (1.8-7.0) K/uL Lymph # (Auto) (1.0-4.3) K/uL Butler # (Auto) (0.0-0.8) K/uL Eos # (Auto) (0.0-0.7) K/uL Baso # (Auto) (0.0-0.2) K/uL Puncture Site pCO2 (35-45) mm/Hg pO2 (80-100) mm/Hg HCO3 (21-28) mmol/L ABG pH (7.35-7.45) ABG Total CO2 (22-28) mmol/L ABG O2 Saturation (95-98) % ABG Base Excess (-2.0-3.0) mmol/L ABG Hemoglobin (11.7-17.4) g/dL ABG Carboxyhemoglobin (0.5-1.5) % POC ABG HHb (Measured) (0.0-5.0) % ABG Methemoglobin (0.0-3.0) % Kevon Test A-a O2 Difference mm/Hg Respiratory Index Hgb O2 Saturation (95.0-98.0) % Vent Mode Mechanical Rate FiO2 % Tidal Volume PEEP Sodium (132-148) mmol/L Potassium (3.6-5.2) mmol/L Chloride (98-107) mmol/L Carbon Dioxide (22-30) mmol/L Anion Gap (10-20) BUN (7-17) mg/dL Creatinine (0.7-1.2) mg/dL Est GFR ( Amer) Est GFR (Non-Af Amer) POC Glucose (mg/dL) 162 H 243 H (65-110) mg/dL Random Glucose (65-105) mg/dL Calcium (8.6-10.4) mg/dl Magnesium (1.6-2.3) mg/dL Total Bilirubin (0.2-1.3) mg/dL AST (14-36) U/L ALT (9-52) U/L Alkaline Phosphatase (38-126) U/L Total Protein (6.3-8.3) g/dL Albumin (3.5-5.0) g/dL Globulin (2.2-3.9) gm/dL Albumin/Globulin Ratio (1.0-2.1) Valproic Acid (50.0-100.0) ug/mL Laboratory Results - last 24 hr 07/30/18 07/30/18 07/30/18 05:06 11:09 23:45 WBC RBC Hgb Hct MCV MCH MCHC RDW Plt Count MPV Neut % (Auto) Lymph % (Auto) Butler % (Auto) Eos % (Auto) Baso % (Auto) Neut # (Auto) Lymph # (Auto) Butler # (Auto) Eos # (Auto) Baso # (Auto) Puncture Site pCO2 pO2 HCO3 ABG pH ABG Total CO2 ABG O2 Saturation ABG Base Excess ABG Hemoglobin ABG Carboxyhemoglobin POC ABG HHb (Measured) ABG Methemoglobin Kevon Test A-a O2 Difference Respiratory Index Hgb O2 Saturation Vent Mode Mechanical Rate FiO2 Tidal Volume PEEP Sodium Potassium Chloride Carbon Dioxide Anion Gap BUN Creatinine Est GFR ( Amer) Est GFR (Non-Af Amer) POC Glucose (mg/dL) 243 H 162 H 263 H Random Glucose Calcium Magnesium Total Bilirubin AST ALT Alkaline Phosphatase Total Protein Albumin Globulin Albumin/Globulin Ratio Valproic Acid 07/31/18 08/01/18 08/01/18 05:28 00:30 05:13 WBC RBC Hgb Hct MCV MCH MCHC RDW Plt Count MPV Neut % (Auto) Lymph % (Auto) Butler % (Auto) Eos % (Auto) Baso % (Auto) Neut # (Auto) Lymph # (Auto) Butler # (Auto) Eos # (Auto) Baso # (Auto) Puncture Site pCO2 pO2 HCO3 ABG pH ABG Total CO2 ABG O2 Saturation ABG Base Excess ABG Hemoglobin ABG Carboxyhemoglobin POC ABG HHb (Measured) ABG Methemoglobin Kevon Test A-a O2 Difference Respiratory Index Hgb O2 Saturation Vent Mode Mechanical Rate FiO2 Tidal Volume PEEP Sodium Potassium Chloride Carbon Dioxide Anion Gap BUN Creatinine Est GFR ( Amer) Est GFR (Non-Af Amer) POC Glucose (mg/dL) 218 H 257 H 240 H Random Glucose Calcium Magnesium Total Bilirubin AST ALT Alkaline Phosphatase Total Protein Albumin Globulin Albumin/Globulin Ratio Valproic Acid 08/01/18 08/01/18 08/01/18 06:28 06:28 06:30 WBC 5.4 RBC 3.68 L Hgb 11.0 Hct 32.5 L MCV 88.5 MCH 30.0 MCHC 34.0 RDW 15.0 H Plt Count 309 MPV 9.0 Neut % (Auto) 56.8 Lymph % (Auto) 27.2 Butler % (Auto) 9.7 Eos % (Auto) 5.3 H Baso % (Auto) 1.0 Neut # (Auto) 3.1 Lymph # (Auto) 1.5 Butler # (Auto) 0.5 Eos # (Auto) 0.3 Baso # (Auto) 0.1 Puncture Site Lradial pCO2 40 pO2 104 H HCO3 27.6 ABG pH 7.45 ABG Total CO2 29.0 H ABG O2 Saturation 98.5 H ABG Base Excess 3.5 H ABG Hemoglobin 11.3 L ABG Carboxyhemoglobin 1.8 H POC ABG HHb (Measured) 1.5 ABG Methemoglobin 1.1 Kevon Test Pos A-a O2 Difference 60.0 Respiratory Index 0.6 Hgb O2 Saturation 95.6 Vent Mode Prvc Mechanical Rate 12 FiO2 30.0 Tidal Volume 400 PEEP 5 Sodium 146 Potassium 3.6 Chloride 106 Carbon Dioxide 28 Anion Gap 15 BUN 37 H Creatinine 1.0 Est GFR ( Amer) > 60 Est GFR (Non-Af Amer) 58 POC Glucose (mg/dL) Random Glucose 229 H Calcium 9.3 Magnesium 2.5 H Total Bilirubin 0.5 AST 24 ALT 25 Alkaline Phosphatase 237 H Total Protein 7.4 Albumin 3.3 L Globulin 4.0 H Albumin/Globulin Ratio 0.8 L Valproic Acid 08/01/18 08/01/18 11:25 11:41 WBC RBC Hgb Hct MCV MCH MCHC RDW Plt Count MPV Neut % (Auto) Lymph % (Auto) Butler % (Auto) Eos % (Auto) Baso % (Auto) Neut # (Auto) Lymph # (Auto) Butler # (Auto) Eos # (Auto) Baso # (Auto) Puncture Site pCO2 pO2 HCO3 ABG pH ABG Total CO2 ABG O2 Saturation ABG Base Excess ABG Hemoglobin ABG Carboxyhemoglobin POC ABG HHb (Measured) ABG Methemoglobin Kevon Test A-a O2 Difference Respiratory Index Hgb O2 Saturation Vent Mode Mechanical Rate FiO2 Tidal Volume PEEP Sodium Potassium Chloride Carbon Dioxide Anion Gap BUN Creatinine Est GFR ( Amer) Est GFR (Non-Af Amer) POC Glucose (mg/dL) 258 H Random Glucose Calcium Magnesium Total Bilirubin AST ALT Alkaline Phosphatase Total Protein Albumin Globulin Albumin/Globulin Ratio Valproic Acid 19.6 L Critical Care Progress Note - Nutrition Nutrition: Nutrition Category Date Time Status NPO Diet [DIET] Diets 07/25/18 Breakfast Active Attending/Attestation - Attestation I have personally seen and examined this patient.: Yes I have fully participated in the care of the patient.: Yes I have reviewed all pertinent clinical information: Yes Notes (Text): 08/01/18 18:15 Patient seen and examined in the intensive care unit. Status post tracheostomy and PEG insertion Regarding feeding responsive Tolerating IMV continue antibiotics
[2018-08-01] MEDS: (Lantus) Insulin Glargine, Recombinant SC SCH (12:10)
--- NOTE | 2018-08-01 14:21 | CT ---
Date of service: 08/01/2018 PROCEDURE: CT HEAD WITHOUT CONTRAST. HISTORY: AMS COMPARISON: CT head dated 07/14/2018. TECHNIQUE: Axial computed tomography images were obtained through the head/brain without intravenous contrast. Radiation dose: Total exam DLP = 1027.08 mGy-cm. This CT exam was performed using one or more of the following dose reduction techniques: Automated exposure control, adjustment of the mA and/or kV according to patient size, and/or use of iterative reconstruction technique. FINDINGS: HEMORRHAGE: No intracranial hemorrhage. BRAIN: No mass effect or edema. Atrophy. Chronic microvascular ischemic changes. VENTRICLES: Unremarkable. No hydrocephalus. CALVARIUM: Unremarkable. PARANASAL SINUSES: Unremarkable as visualized. No significant inflammatory changes. MASTOID AIR CELLS: Unremarkable as visualized. No inflammatory changes. OTHER FINDINGS: None. IMPRESSION: No acute intracranial pathology. Age-related changes. No significant interval change.
--- NOTE | 2018-08-01 18:42 | CP.PCM.PN ---
Subjective - Date & Time of Evaluation Date of Evaluation: 08/01/18 Time of Evaluation: 18:40 - Subjective Subjective: spoke w at bedside patient has trach smiles understands follows commands Objective - Vital Signs/Intake and Output Vital Signs (last 24 hours): Temp Pulse Resp BP Pulse Ox 98.0 F 90 12 128/76 100 08/01/18 18:00 08/01/18 17:00 08/01/18 17:00 08/01/18 17:00 08/01/18 17:00 Intake and Output: 08/01/18 08/01/18 06:59 18:59 Intake Total 800 450 Output Total 250 800 Balance 550 -350 - Medications Medications: Current Medications Acetaminophen (Tylenol 325mg Tab) 650 mg PEG Q6 PRN PRN Reason: Pain, moderate (4-7) Last Admin: 08/01/18 09:31 Dose: 650 mg Albuterol/Ipratropium (Duoneb 3 Mg/0.5 Mg (3 Ml) Ud) 3 ml INH RQ4 PRN PRN Reason: Shortness of Breath Last Admin: 07/28/18 20:12 Dose: 3 ml Apixaban (Eliquis) 5 mg PO BID [facility] Last Admin: 08/01/18 09:39 Dose: 5 mg Ascorbic Acid (Vitamin C 500 Mg Tab) 1,000 mg NG DAILY [facility] Last Admin: 08/01/18 09:32 Dose: 1,000 mg Aspirin (Aspirin Chewable) 81 mg GT DAILY [facility] Last Admin: 08/01/18 09:32 Dose: 81 mg Insulin Aspart (Novolog) 0 unit SC Q6 [facility]; Protocol Last Admin: 08/01/18 05:18 Dose: 4 units Insulin Glargine (Lantus) 20 unit SC Q12 [facility] Last Admin: 07/24/18 22:13 Dose: 20 u Insulin Glargine (Lantus) 10 unit SC Q12 [facility] Lactobacillus Acidophilus (Bacid Acidophilus) 1 cap PO Q12H [facility] Last Admin: 08/01/18 09:32 Dose: 1 cap Methimazole (Tapazole) 20 mg PO Q8 [facility] Last Admin: 08/01/18 05:19 Dose: 20 mg Modafinil (Provigil) 100 mg PEG DAILY [facility] Multivitamins/Vitamin C (Multi-Delyn Liquid) 5 ml PO DAILY [facility] Last Admin: 08/01/18 09:32 Dose: 5 ml Pantoprazole Sodium (Protonix Susp) 40 mg PO DAILY [facility] Last Admin: 08/01/18 09:32 Dose: 40 mg Rosuvastatin Calcium (Crestor) 2.5 mg PO HS [facility] Last Admin: 07/31/18 21:13 Dose: 2.5 mg Vitamin A (Vitamin A & D Oint Ud Foilpak) 1 ea TOP BID [facility] Last Admin: 08/01/18 09:34 Dose: 1 ea - Labs Labs: 08/01/18 06:28 08/01/18 06:28 PT 17.7 SECONDS (9.7-12.2) H 07/28/18 06:19 INR 1.6 07/28/18 06:19 APTT 52 SECONDS (21-34) H 07/31/18 05:56 - Constitutional Appears: Well, Non-toxic - Eye Exam Additional comments: tracheostomy - Respiratory Exam Respiratory Exam: Clear to Ausculation Bilateral, NORMAL BREATHING PATTERN. absent: Accessory Muscle Use, Rhonchi, Wheezes Additional comments: on vent trach - Cardiovascular Exam Cardiovascular Exam: REGULAR RHYTHM, +S1, +S2 - GI/Abdominal Exam GI & Abdominal Exam: Soft, Normal Bowel Sounds. absent: Tenderness Additional comments: peg Assessment and Plan - Assessment and Plan (Free Text) Assessment: 1) Acute Respiratory Failure ( likely due to VT,apical thrombus,Pulmonary Edema Bilateral Pleural Effusion and Consolidations Likely Secondary to Aspiration Pneumonia) On Vent. managed by critical care team s/p Trach trial of cpap 2)s/p Septic Shock-treated. off antibiotics,no fever Pneumonia Urinary Tract Infection Infectious Disease Dr. Brock 3) Apical Thrombus Ventricular Tachycardia NSTEMI LLE DVT On Eliquis and asprin 4) Urinary Tract Infection-treated 5) Diabetes * Lantus 20 units subcutaneous at bedtime Q12 6) Acute on Chronic Renal Failure-resolved 7) Hyperthyroidism? Low TSH, and Free T4 Thyroid [facility] (Dr. 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 She will need outpatient FNA Bx of the complex Left Lobe cyst (please see full report) Methimazole 20mg PO TID and Propranolol 5 mg PO TID 8) Anemia Likely Secondary to Chronic Diseases 9) Transminitis-->improving 12) 13 mm Left Adrenal Nodule * As seen on CT Chest 07/16/18 * Will need outpatient follow up for cross sectional imaging for better characterization 15) Prophylactic measure * Protonix 40mg * Patient is on eliquis Disposition; Patient is status post trachoestomy and peg placement. Heparin drip. Patient is awaiting cardiac cath in light of cardiac thrombus. Patient is on IV abx for pneumonia and urinary tract infection. Cpap trial since patient is on trach. patient does not have insurance; please f/u with social/case management to start insurance process for potential LTAC/rehab. She will need significant rehab to regain muscle and strength.
[2018-08-01] MEDS: Rosuvastatin Calcium 2.5 mg Tab PO SCH (21:51)
[2018-08-02] MEDS: (Novolog) Insulin Aspart, Recombinant 100 u/ml 10 ml vial SC SCH ×4 (00:50→17:34)
[2018-08-02 06:54] LABS: BASO # 0.1 K/uL (0.0-0.2); BASO % 1.1 % (0.0-2.0); EOS # 0.3 K/uL (0.0-0.7); EOS % 5.7 % (0.0-4.0); HEMOGLOBIN 10.4 g/dL (11.0-16.0); LYMPH # 1.3 K/uL (1.0-4.3); LYMPH % 23.7 % (20.0-40.0); MEAN CELL VOLUME 89.3 fL (81.0-99.0); MEAN CORPUSCULAR HEMOGLOBIN 29.6 pg (27.0-31.0); MEAN CORPUSCULAR HGB CONC 33.2 g/dL (33.0-37.0); MEAN PLATELET VOLUME 8.5 fL (7.2-11.7); MONO # 0.5 K/uL (0.0-0.8); MONO % 9.7 % (0.0-10.0); NEUT # 3.4 K/uL (1.8-7.0); NEUT % 59.8 % (50.0-75.0); RBC 3.51 Mil/uL (3.80-5.20); RED CELL DISTRIBUTION WIDTH 14.8 % (11.5-14.5); WHITE BLOOD COUNT 5.6 K/uL (4.8-10.8)
[2018-08-02 07:25] LABS: ALB/GLOB RATIO 0.8 (1.0-2.1); ALBUMIN 3.3 g/dL (3.5-5.0); ALT/SGPT 31 U/L (9-52); AST/SGOT 28 U/L (14-36); BLOOD UREA NITROGEN 37 mg/dL (7-17); CALCIUM 9.2 mg/dl (8.6-10.4); GFR NON-AFRICAN AMERICAN > 60
[2018-08-02] MEDS: Lactobacillus Acidophilus 500 MU Cap PO SCH ×2 (08:24→20:16)
[2018-08-02] MEDS: Vitamins A & D Oint UD Foilpak TOP SCH ×2 (09:36→17:30)
[2018-08-02] MEDS: (Lantus) Insulin Glargine, Recombinant SC SCH ×2 (09:37→21:15)
[2018-08-02] MEDS: Pantoprazole 40 mg Susp UD PO SCH (09:37)
[2018-08-02] MEDS: Multiple Vitamins Oral Solution PO SCH (09:37)
--- NOTE | 2018-08-02 17:15 | CP.CCUPN ---
<Brayan Gonzalez - Last Filed: 08/02/18 17:29> CCU Subjective - Physician Review Events Since Last Encounter (Free Text): 08/02/18 17:15 No acute events overnight Subjective (Free Text): 08/02/18 17:14 PGY1 Critical Care Progress Note for Dr. Lozada Patient seen at bedside this morning. Patient is alert and able to follow 1-step commands. Patient is currently with PEG and Tracheostomy. PICC line was placed. No bleeding. No acute issues. ROS could not be obtained due to clinical condition. Critical Care Time Spent (in minutes): 35 CCU Objective - Vital Signs / Intake & Output Vital Signs (Last 4 hours): Vital Signs Pulse Resp BP Pulse Ox 08/02/18 16:00 97 H 13 127/73 100 08/02/18 15:00 92 H 11 L 113/71 100 08/02/18 14:00 91 H 11 L 130/73 100 Intake and Output (Last 8hrs): Intake & Output 08/02/18 08/02/18 08/02/18 06:59 14:59 22:59 Intake Total 450 450 Output Total 300 Balance 150 450 Weight 102 lb 12.8 oz Intake: Intake, IV Amount 0 0 Left PICC 0 0 Tube Feeding 400 350 Other 50 100 Output: Urine 300 Urine, Voided 300 Other: # Bowel Movements 1 - Physical Exam Head: Positive for: Atraumatic, Normocephalic Pupils: Positive for: PERRL. Negative for: Sluggish, Pinpoint Extroacular Muscles: Positive for: EOMI. Negative for: Gaze Palsy Conjunctiva: Positive for: Normal. Negative for: Injected, Icteric Mouth: Positive for: Moist Mucous Membranes Nose (External): Positive for: Atraumatic. Negative for: Abrasion, Contusion, Laceration Nose (Internal): Positive for: No Active Bleeding. Negative for: Epistaxis Neck: Positive for: Normal Range of Motion, Trachea Midline. Negative for: JVD Respiratory/Chest: Positive for: Good Air Exchange, Rhonchi (mild ronchi in bilateral bases), Other (trach). Negative for: Wheezes, Rales Cardiovascular: Positive for: Normal S1, S2, Peripheal Pulses Present, Tachycardic. Negative for: Regular Rate and Rhythm Abdomen: Positive for: Normal Bowel Sounds. Negative for: Tenderness, Distention, Rebound, Guarding Upper Extremity: Positive for: Normal Inspection, NORMAL PULSES. Negative for: Cyanosis, Edema Lower Extremity: Positive for: Normal Inspection. Negative for: Edema, CALF TENDERNESS Neurological: Positive for: Other Skin: Positive for: Warm, Dry, Normal Color Psychiatric: Positive for: Alert - Medications Active Medications: Active Medications Generic Name Dose Route Start Last Admin Trade Name Freq PRN Reason Stop Dose Admin Acetaminophen 650 mg 07/28/18 13:39 08/01/18 09:31 Tylenol 325mg Tab PEG 650 mg Q6 PRN Administration Pain, moderate (4-7) Albuterol/Ipratropium 3 ml 07/28/18 16:34 07/28/18 20:12 Duoneb 3 Mg/0.5 Mg (3 Ml) Ud INH 3 ml RQ4 PRN Administration Shortness of Breath Apixaban 5 mg 07/31/18 18:00 08/02/18 09:36 Eliquis PO 5 mg BID MANOLO Administration Ascorbic Acid 1,000 mg 07/24/18 10:00 08/02/18 09:37 Vitamin C 500 Mg Tab NG 1,000 mg DAILY MANOLO Administration Aspirin 81 mg 07/17/18 10:00 08/02/18 09:37 Aspirin Chewable GT 81 mg DAILY MANOLO Administration Insulin Aspart 0 unit 07/11/18 08:28 08/02/18 12:15 Novolog SC 2 units Q6 MANOLO Administration Protocol Insulin Glargine 15 unit 08/02/18 22:00 Lantus SC Q12 MANOLO Lactobacillus Acidophilus 1 cap 07/08/18 20:00 08/02/18 08:24 Bacid Acidophilus PO 1 cap Q12H MANOLO Administration Methimazole 20 mg 07/27/18 14:00 08/02/18 13:54 Tapazole PO 20 mg Q8 MANOLO Administration Modafinil 100 mg 08/02/18 10:00 08/02/18 09:37 Provigil PEG 100 mg DAILY MANOLO Administration Multivitamins/Vitamin C 5 ml 07/24/18 10:00 08/02/18 09:37 Multi-Delyn Liquid PO 5 ml DAILY MANOLO Administration Pantoprazole Sodium 40 mg 07/20/18 10:00 08/02/18 09:37 Protonix Susp PO 40 mg DAILY MANOLO Administration Rosuvastatin Calcium 2.5 mg 07/13/18 22:00 08/01/18 21:51 Crestor PO 2.5 mg HS MANOLO Administration Vitamin A 1 ea 07/28/18 18:00 08/02/18 09:36 Vitamin A & D Oint Ud Foilpak TOP 1 ea BID MANOLO Administration - Patient Studies Lab Studies: Lab Studies 08/02/18 08/02/18 08/02/18 Range/Units 11:25 06:50 06:50 WBC 5.6 (4.8-10.8) K/uL RBC 3.51 L (3.80-5.20) Mil/uL Hgb 10.4 L (11.0-16.0) g/dL Hct 31.4 L (34.0-47.0) % MCV 89.3 (81.0-99.0) fL MCH 29.6 (27.0-31.0) pg MCHC 33.2 (33.0-37.0) g/dL RDW 14.8 H (11.5-14.5) % Plt Count 286 (130-400) K/uL MPV 8.5 (7.2-11.7) fL Neut % (Auto) 59.8 (50.0-75.0) % Lymph % (Auto) 23.7 (20.0-40.0) % Woodward % (Auto) 9.7 (0.0-10.0) % Eos % (Auto) 5.7 H (0.0-4.0) % Baso % (Auto) 1.1 (0.0-2.0) % Neut # (Auto) 3.4 (1.8-7.0) K/uL Lymph # (Auto) 1.3 (1.0-4.3) K/uL Woodward # (Auto) 0.5 (0.0-0.8) K/uL Eos # (Auto) 0.3 (0.0-0.7) K/uL Baso # (Auto) 0.1 (0.0-0.2) K/uL Sodium 140 (132-148) mmol/L Potassium 4.1 (3.6-5.2) mmol/L Chloride 110 H (98-107) mmol/L Carbon Dioxide 27 (22-30) mmol/L Anion Gap 7 L (10-20) BUN 37 H (7-17) mg/dL Creatinine 0.8 (0.7-1.2) mg/dL Est GFR ( Amer) > 60 Est GFR (Non-Af Amer) > 60 POC Glucose (mg/dL) 187 H (65-110) mg/dL Random Glucose 253 H (65-105) mg/dL Calcium 9.2 (8.6-10.4) mg/dl Phosphorus 4.7 H (2.5-4.5) mg/dL Magnesium 2.5 H (1.6-2.3) mg/dL Total Bilirubin 0.5 (0.2-1.3) mg/dL AST 28 (14-36) U/L ALT 31 (9-52) U/L Alkaline Phosphatase 212 H (38-126) U/L Total Protein 7.3 (6.3-8.3) g/dL Albumin 3.3 L (3.5-5.0) g/dL Globulin 4.0 H (2.2-3.9) gm/dL Albumin/Globulin Ratio 0.8 L (1.0-2.1) 08/02/18 08/01/18 08/01/18 Range/Units 06:12 23:36 18:15 WBC (4.8-10.8) K/uL RBC (3.80-5.20) Mil/uL Hgb (11.0-16.0) g/dL Hct (34.0-47.0) % MCV (81.0-99.0) fL MCH (27.0-31.0) pg MCHC (33.0-37.0) g/dL RDW (11.5-14.5) % Plt Count (130-400) K/uL MPV (7.2-11.7) fL Neut % (Auto) (50.0-75.0) % Lymph % (Auto) (20.0-40.0) % Woodward % (Auto) (0.0-10.0) % Eos % (Auto) (0.0-4.0) % Baso % (Auto) (0.0-2.0) % Neut # (Auto) (1.8-7.0) K/uL Lymph # (Auto) (1.0-4.3) K/uL Woodward # (Auto) (0.0-0.8) K/uL Eos # (Auto) (0.0-0.7) K/uL Baso # (Auto) (0.0-0.2) K/uL Sodium (132-148) mmol/L Potassium (3.6-5.2) mmol/L Chloride (98-107) mmol/L Carbon Dioxide (22-30) mmol/L Anion Gap (10-20) BUN (7-17) mg/dL Creatinine (0.7-1.2) mg/dL Est GFR ( Amer) Est GFR (Non-Af Amer) POC Glucose (mg/dL) 284 H 263 H 294 H (65-110) mg/dL Random Glucose (65-105) mg/dL Calcium (8.6-10.4) mg/dl Phosphorus (2.5-4.5) mg/dL Magnesium (1.6-2.3) mg/dL Total Bilirubin (0.2-1.3) mg/dL AST (14-36) U/L ALT (9-52) U/L Alkaline Phosphatase (38-126) U/L Total Protein (6.3-8.3) g/dL Albumin (3.5-5.0) g/dL Globulin (2.2-3.9) gm/dL Albumin/Globulin Ratio (1.0-2.1) Laboratory Results - last 24 hr 08/01/18 08/01/18 08/02/18 18:15 23:36 06:12 WBC RBC Hgb Hct MCV MCH MCHC RDW Plt Count MPV Neut % (Auto) Lymph % (Auto) Woodward % (Auto) Eos % (Auto) Baso % (Auto) Neut # (Auto) Lymph # (Auto) Woodward # (Auto) Eos # (Auto) Baso # (Auto) Sodium Potassium Chloride Carbon Dioxide Anion Gap BUN Creatinine Est GFR ( Amer) Est GFR (Non-Af Amer) POC Glucose (mg/dL) 294 H 263 H 284 H Random Glucose Calcium Phosphorus Magnesium Total Bilirubin AST ALT Alkaline Phosphatase Total Protein Albumin Globulin Albumin/Globulin Ratio 08/02/18 08/02/18 08/02/18 06:50 06:50 11:25 WBC 5.6 RBC 3.51 L Hgb 10.4 L Hct 31.4 L MCV 89.3 MCH 29.6 MCHC 33.2 RDW 14.8 H Plt Count 286 MPV 8.5 Neut % (Auto) 59.8 Lymph % (Auto) 23.7 Woodward % (Auto) 9.7 Eos % (Auto) 5.7 H Baso % (Auto) 1.1 Neut # (Auto) 3.4 Lymph # (Auto) 1.3 Woodward # (Auto) 0.5 Eos # (Auto) 0.3 Baso # (Auto) 0.1 Sodium 140 Potassium 4.1 Chloride 110 H Carbon Dioxide 27 Anion Gap 7 L BUN 37 H Creatinine 0.8 Est GFR ( Amer) > 60 Est GFR (Non-Af Amer) > 60 POC Glucose (mg/dL) 187 H Random Glucose 253 H Calcium 9.2 Phosphorus 4.7 H Magnesium 2.5 H Total Bilirubin 0.5 AST 28 ALT 31 Alkaline Phosphatase 212 H Total Protein 7.3 Albumin 3.3 L Globulin 4.0 H Albumin/Globulin Ratio 0.8 L Fingerstick Blood Sugar Results: 187 Review of Systems - Review of Systems Systems not reviewed;Unavailable: Acuity of Condition Critical Care Progress Note - Nutrition Nutrition: Nutrition Category Date Time Status NPO Diet [DIET] Diets 07/25/18 Breakfast Active Assessment/Plan - Assessment and Plan (Free Text) Assessment: This is a 52 yo female with PMH of DM2 and hypercholesterolemia who presented to with cough, post-tussive emesis, and malaise x2-3 weeks. She was admitted to the ICU for respiratory failure and acute renal failure. Of note, patient was CODE BLUE on 07/10 (V-tach). Remains intubated after failing extubation, as patient vomited just hours after extubation. Currently with tracheostomy (performed by Dr. Melchor.) Patient is hemodynamically stable, and is status-post PEG placement with Dr. Murray and GI Fellow Dr. Amaya. Plan Neuro Anoxic brain injury - Hemodynamically stable - Continue Modafinil 100mg PO Daily Agitation (resolved) - Discontinued: valproic acid 500mg liquid BID Pulm Chronic Hypoxic Respiratory Failure secondary to pulmonary congestion, renal failure * Status-post trach * CXR shows congestion and R lower lobe infiltrate * Continue bronchodilators * C-PAP trials daily - today tolerated 4 hours C-PAP - Goal SaO2 > 92% and paO2 > 55 * FiO2 titrated down to 30% (for goal PO2/FiO2 ratio > 300) * CT angiogram obtained 07/26 to rule out PE -- Negative for PE. - Duonebs 2 ml INH RQ4 - Status-post tracheostomy 07/[address] Melchro CV Hypotension - Normotensive: 127/73 - Discontinued: Levophed - Discontinued: Midodrine - Cardiac arrest from unknown etiology - Cardiology consulted. Appreciate recs. - Repeat ECHO from shows left ventricular thrombus; - Doppler show LLE DVT, right cephalic vein thrombus - Discontinued: Heparin drip - Start Eliquis 5mg PO BID Daily - Continue daily aspirin 81 mg, crestor 2.5 mg PO HS - Discontinued propranolol 5mg PO TID CHADsVASc Score= 3 * Stroke risk 3.2% per year * 4.6% risk of stroke/TIA/systemic embolism - PICC line placed MSK - OOB as tolerated with assistance - Early Mobilization highly recommended - PT/OT - Discontinue central line (right subclavian) - PICC line order placed GI - Start: Vital 1.2 tube feeds Max Rate #35 - Protonix 40 mg IV daily - Dr. Murray Consulted: recommendations appreciated - Pelvic/ trasnvaginal ultrasound performed - Patient's states patient still has regular menstrual cycles monthly - Monitor H/H Renal - Acute renal failure resolving - Avoid nephrotoxic drugs Heme: - Anemia: Hgb=11.2; improved - No acute issues - Continue to monitor H/H Endo - ISS for coverage, q6h - Increased Lantus 10mg Q12 --> Lantus 15mg Q12 - Continue Methimazole 20mg PO Q8 - FSH LH and Prolactin Infectious Disease - Discontinued: Merrem 1 gm daily - Discontinued: vancomycin 1 gm daily - Negative cultures - ID following, appreciate all recs Dispo: Pending another PS/CPAP trial, tracheostomy placed 07/24 FEN: NPO, on Tube Feeds Access: Peripheral IVs, right subclavian TLC, ETT, OGT Consults: Palliative, Endo, Nephro, Cardio, Neuro, Cardio, GI Ppx: Protonix for GI, SCDs Code status: FULL Next of kin: Martina Isaacs () Prognosis: Guarded Patient seen, reviewed, and case discussed with attending, Dr. Neville Gonzalez PGY1 <Errol Lozada S - Last Filed: 08/02/18 18:17> CCU Objective - Vital Signs / Intake & Output Vital Signs (Last 4 hours): Vital Signs Pulse Resp BP Pulse Ox 08/02/18 16:00 97 H 13 127/73 100 08/02/18 15:00 92 H 11 L 113/71 100 Intake and Output (Last 8hrs): Intake & Output 08/02/18 08/02/18 08/02/18 06:59 14:59 22:59 Intake Total 450 450 Output Total 300 Balance 150 450 Weight 102 lb 12.8 oz Intake: Intake, IV Amount 0 0 Left PICC 0 0 Tube Feeding 400 350 Other 50 100 Output: Urine 300 Urine, Voided 300 Other: # Bowel Movements 1 - Medications Active Medications: Active Medications Generic Name Dose Route Start Last Admin Trade Name Freq PRN Reason Stop Dose Admin Acetaminophen 650 mg 07/28/18 13:39 08/01/18 09:31 Tylenol 325mg Tab PEG 650 mg Q6 PRN Administration Pain, moderate (4-7) Albuterol/Ipratropium 3 ml 07/28/18 16:34 07/28/18 20:12 Duoneb 3 Mg/0.5 Mg (3 Ml) Ud INH 3 ml RQ4 PRN Administration Shortness of Breath Apixaban 5 mg 07/31/18 18:00 08/02/18 17:30 Eliquis PO 5 mg BID MANOLO Administration Ascorbic Acid 1,000 mg 07/24/18 10:00 08/02/18 09:37 Vitamin C 500 Mg Tab NG 1,000 mg DAILY MANOLO Administration Aspirin 81 mg 07/17/18 10:00 08/02/18 09:37 Aspirin Chewable GT 81 mg DAILY MANOLO Administration Insulin Aspart 0 unit 07/11/18 08:28 08/02/18 17:34 Novolog SC 2 units Q6 MANOLO Administration Protocol Insulin Glargine 15 unit 08/02/18 22:00 Lantus SC Q12 MANOLO Lactobacillus Acidophilus 1 cap 07/08/18 20:00 08/02/18 08:24 Bacid Acidophilus PO 1 cap Q12H MANOLO Administration Methimazole 20 mg 07/27/18 14:00 08/02/18 13:54 Tapazole PO 20 mg Q8 MANOLO Administration Modafinil 100 mg 08/02/18 10:00 08/02/18 09:37 Provigil PEG 100 mg DAILY MANOLO Administration Multivitamins/Vitamin C 5 ml 07/24/18 10:00 08/02/18 09:37 Multi-Delyn Liquid PO 5 ml DAILY MANOLO Administration Pantoprazole Sodium 40 mg 07/20/18 10:00 08/02/18 09:37 Protonix Susp PO 40 mg DAILY MANOLO Administration Rosuvastatin Calcium 2.5 mg 07/13/18 22:00 08/01/18 21:51 Crestor PO 2.5 mg HS MANOLO Administration Vitamin A 1 ea 07/28/18 18:00 08/02/18 17:30 Vitamin A & D Oint Ud Foilpak TOP 1 ea BID MANOLO Administration - Patient Studies Lab Studies: Lab Studies 08/02/18 08/02/18 08/02/18 Range/Units 17:32 11:25 06:50 WBC (4.8-10.8) K/uL RBC (3.80-5.20) Mil/uL Hgb (11.0-16.0) g/dL Hct (34.0-47.0) % MCV (81.0-99.0) fL MCH (27.0-31.0) pg MCHC (33.0-37.0) g/dL RDW (11.5-14.5) % Plt Count (130-400) K/uL MPV (7.2-11.7) fL Neut % (Auto) (50.0-75.0) % Lymph % (Auto) (20.0-40.0) % Woodward % (Auto) (0.0-10.0) % Eos % (Auto) (0.0-4.0) % Baso % (Auto) (0.0-2.0) % Neut # (Auto) (1.8-7.0) K/uL Lymph # (Auto) (1.0-4.3) K/uL Woodward # (Auto) (0.0-0.8) K/uL Eos # (Auto) (0.0-0.7) K/uL Baso # (Auto) (0.0-0.2) K/uL Sodium 140 (132-148) mmol/L Potassium 4.1 (3.6-5.2) mmol/L Chloride 110 H (98-107) mmol/L Carbon Dioxide 27 (22-30) mmol/L Anion Gap 7 L (10-20) BUN 37 H (7-17) mg/dL Creatinine 0.8 (0.7-1.2) mg/dL Est GFR ( Amer) > 60 Est GFR (Non-Af Amer) > 60 POC Glucose (mg/dL) 173 H 187 H (65-110) mg/dL Random Glucose 253 H (65-105) mg/dL Calcium 9.2 (8.6-10.4) mg/dl Phosphorus 4.7 H (2.5-4.5) mg/dL Magnesium 2.5 H (1.6-2.3) mg/dL Total Bilirubin 0.5 (0.2-1.3) mg/dL AST 28 (14-36) U/L ALT 31 (9-52) U/L Alkaline Phosphatase 212 H (38-126) U/L Total Protein 7.3 (6.3-8.3) g/dL Albumin 3.3 L (3.5-5.0) g/dL Globulin 4.0 H (2.2-3.9) gm/dL Albumin/Globulin Ratio 0.8 L (1.0-2.1) 08/02/18 08/02/18 08/01/18 Range/Units 06:50 06:12 23:36 WBC 5.6 (4.8-10.8) K/uL RBC 3.51 L (3.80-5.20) Mil/uL Hgb 10.4 L (11.0-16.0) g/dL Hct 31.4 L (34.0-47.0) % MCV 89.3 (81.0-99.0) fL MCH 29.6 (27.0-31.0) pg MCHC 33.2 (33.0-37.0) g/dL RDW 14.8 H (11.5-14.5) % Plt Count 286 (130-400) K/uL MPV 8.5 (7.2-11.7) fL Neut % (Auto) 59.8 (50.0-75.0) % Lymph % (Auto) 23.7 (20.0-40.0) % Woodward % (Auto) 9.7 (0.0-10.0) % Eos % (Auto) 5.7 H (0.0-4.0) % Baso % (Auto) 1.1 (0.0-2.0) % Neut # (Auto) 3.4 (1.8-7.0) K/uL Lymph # (Auto) 1.3 (1.0-4.3) K/uL Woodward # (Auto) 0.5 (0.0-0.8) K/uL Eos # (Auto) 0.3 (0.0-0.7) K/uL Baso # (Auto) 0.1 (0.0-0.2) K/uL Sodium (132-148) mmol/L Potassium (3.6-5.2) mmol/L Chloride (98-107) mmol/L Carbon Dioxide (22-30) mmol/L Anion Gap (10-20) BUN (7-17) mg/dL Creatinine (0.7-1.2) mg/dL Est GFR ( Amer) Est GFR (Non-Af Amer) POC Glucose (mg/dL) 284 H 263 H (65-110) mg/dL Random Glucose (65-105) mg/dL Calcium (8.6-10.4) mg/dl Phosphorus (2.5-4.5) mg/dL Magnesium (1.6-2.3) mg/dL Total Bilirubin (0.2-1.3) mg/dL AST (14-36) U/L ALT (9-52) U/L Alkaline Phosphatase (38-126) U/L Total Protein (6.3-8.3) g/dL Albumin (3.5-5.0) g/dL Globulin (2.2-3.9) gm/dL Albumin/Globulin Ratio (1.0-2.1) 08/01/18 Range/Units 18:15 WBC (4.8-10.8) K/uL RBC (3.80-5.20) Mil/uL Hgb (11.0-16.0) g/dL Hct (34.0-47.0) % MCV (81.0-99.0) fL MCH (27.0-31.0) pg MCHC (33.0-37.0) g/dL RDW (11.5-14.5) % Plt Count (130-400) K/uL MPV (7.2-11.7) fL Neut % (Auto) (50.0-75.0) % Lymph % (Auto) (20.0-40.0) % Woodward % (Auto) (0.0-10.0) % Eos % (Auto) (0.0-4.0) % Baso % (Auto) (0.0-2.0) % Neut # (Auto) (1.8-7.0) K/uL Lymph # (Auto) (1.0-4.3) K/uL Woodward # (Auto) (0.0-0.8) K/uL Eos # (Auto) (0.0-0.7) K/uL Baso # (Auto) (0.0-0.2) K/uL Sodium (132-148) mmol/L Potassium (3.6-5.2) mmol/L Chloride (98-107) mmol/L Carbon Dioxide (22-30) mmol/L Anion Gap (10-20) BUN (7-17) mg/dL Creatinine (0.7-1.2) mg/dL Est GFR ( Amer) Est GFR (Non-Af Amer) POC Glucose (mg/dL) 294 H (65-110) mg/dL Random Glucose (65-105) mg/dL Calcium (8.6-10.4) mg/dl Phosphorus (2.5-4.5) mg/dL Magnesium (1.6-2.3) mg/dL Total Bilirubin (0.2-1.3) mg/dL AST (14-36) U/L ALT (9-52) U/L Alkaline Phosphatase (38-126) U/L Total Protein (6.3-8.3) g/dL Albumin (3.5-5.0) g/dL Globulin (2.2-3.9) gm/dL Albumin/Globulin Ratio (1.0-2.1) Laboratory Results - last 24 hr 08/01/18 08/01/18 08/02/18 18:15 23:36 06:12 WBC RBC Hgb Hct MCV MCH MCHC RDW Plt Count MPV Neut % (Auto) Lymph % (Auto) Woodward % (Auto) Eos % (Auto) Baso % (Auto) Neut # (Auto) Lymph # (Auto) Woodward # (Auto) Eos # (Auto) Baso # (Auto) Sodium Potassium Chloride Carbon Dioxide Anion Gap BUN Creatinine Est GFR ( Amer) Est GFR (Non-Af Amer) POC Glucose (mg/dL) 294 H 263 H 284 H Random Glucose Calcium Phosphorus Magnesium Total Bilirubin AST ALT Alkaline Phosphatase Total Protein Albumin Globulin Albumin/Globulin Ratio 08/02/18 08/02/18 08/02/18 06:50 06:50 11:25 WBC 5.6 RBC 3.51 L Hgb 10.4 L Hct 31.4 L MCV 89.3 MCH 29.6 MCHC 33.2 RDW 14.8 H Plt Count 286 MPV 8.5 Neut % (Auto) 59.8 Lymph % (Auto) 23.7 Woodward % (Auto) 9.7 Eos % (Auto) 5.7 H Baso % (Auto) 1.1 Neut # (Auto) 3.4 Lymph # (Auto) 1.3 Woodward # (Auto) 0.5 Eos # (Auto) 0.3 Baso # (Auto) 0.1 Sodium 140 Potassium 4.1 Chloride 110 H Carbon Dioxide 27 Anion Gap 7 L BUN 37 H Creatinine 0.8 Est GFR ( Amer) > 60 Est GFR (Non-Af Amer) > 60 POC Glucose (mg/dL) 187 H Random Glucose 253 H Calcium 9.2 Phosphorus 4.7 H Magnesium 2.5 H Total Bilirubin 0.5 AST 28 ALT 31 Alkaline Phosphatase 212 H Total Protein 7.3 Albumin 3.3 L Globulin 4.0 H Albumin/Globulin Ratio 0.8 L 08/02/18 17:32 WBC RBC Hgb Hct MCV MCH MCHC RDW Plt Count MPV Neut % (Auto) Lymph % (Auto) Woodward % (Auto) Eos % (Auto) Baso % (Auto) Neut # (Auto) Lymph # (Auto) Woodward # (Auto) Eos # (Auto) Baso # (Auto) Sodium Potassium Chloride Carbon Dioxide Anion Gap BUN Creatinine Est GFR ( Amer) Est GFR (Non-Af Amer) POC Glucose (mg/dL) 173 H Random Glucose Calcium Phosphorus Magnesium Total Bilirubin AST ALT Alkaline Phosphatase Total Protein Albumin Globulin Albumin/Globulin Ratio Critical Care Progress Note - Nutrition Nutrition: Nutrition Category Date Time Status NPO Diet [DIET] Diets 07/25/18 Breakfast Active Attending/Attestation - Attestation I have personally seen and examined this patient.: Yes I have fully participated in the care of the patient.: Yes I have reviewed all pertinent clinical information: Yes Notes (Text): 08/02/18 18:04 patient seen and examined in the intensive care unit. Patient is more responsive Tolerating IMV Tolerating feeding Status post tracheostomy and PEG insertion Patient is out of bed to chair
--- NOTE | 2018-08-02 18:15 | CP.PCM.PN ---
Subjective - Date & Time of Evaluation Date of Evaluation: 08/02/18 Time of Evaluation: 17:45 - Subjective Subjective: Hospitalist Progress Note Patient was seen and examined at 5:45 PM 08/02/18 Spoke with Nurse Luz and patient had two watery bowel movements Patient was able to sit in bedside chair for some time today Bedside PT is being performed and patient was able to bear weight at bedside with help of PT CT Head 08/01/18: age related changes Chest X Ray 07/31/18: no evidence of infiltrate General: Trach on SIMV mode HEENT: NCA, Pupils are round and reactive to light, EOMI, NO cervical/supraclavicular/submandibular lymphadenopathy Cardio: NS1 and NS2, NO M/R/G Respiratory: Diffuse course breath sounds bilaterallly GI: BSx4, Soft, ND, NO HSM, NO guarding, NO rebound tenderness, PEG Tube insertion site without evidence of surrounding cellulitis Ext: Pulses are strong and equal, Capillary Refill is 2 seconds, NO edema noted Neuro: exam not possible at this time Skin: Blanchable erythema noted on the lower buttocks area. NO other ulceration noted on any of the ophelia prominences Assessment/plan 1) Septic Shock Pneumonia Urinary Tract Infection Assessment/Plan * Infectious Disease (Dr. Brock) on case-->help appreciated * Tmax: 101.7 F (07/19/18) * Afebrile since * Criteria: leukocytosis, tachycardia * Source: aspiration pneumonia and urinary tract infection * 07/07/18: Urine: E. Coli * 07/09/18: Urine: No growth * 07/07/18: Blood culture: no growth after 5 days X2 * 07/09/18 Blood culture: no growth after 5 days X2 * 07/14/18: blood cultures: no growth to date * 07/14/18: sputum culture: yeast species * 07/14/18: Urine culture: no growth * 07/20/18: Blood culture: no growth after 5 days X2 * 07/20/18: Urine culture: no growth * 07/21/18: No Salmonella, shigella, or campobacter * 07/23/18 Urine culture: no growth * MRSA not detected * Antibiotics * Rocephin 2gm IVPB Q12H (07/14/18 through 07/20/18) * Meropenem 1 gm IV Q8H (active since 07/20/18)-->spoke with ICU Physician Dr. Lozada 08/02/18 and as repeat Chest X Ray 07/31/18 does not show any infiltrates, NO need to restart * Vancomycin 1 gram IVPB Q24H (being held since 07/20/18)-->vancomycin level 7.7-->per id to d/c vancomycin 2) Acute Respiratory Failure Pulmonary Edema Bilateral Pleural Effusion and Consolidations Likely Secondary to Aspiration Pneumonia Assessment/Plan * Required reintubated after 2nd fail attempt; patient underwent tracheostomy 07/24/18 * off Solumedrol * Duonebs RQ4H PRN wheezing * MRSA screen: not detected * Sputum culture 07/09/18, 07/12/18, 07/14/18: yeast * Mycoplasma negative * Legionella was negative * Influenza negative * HIV negative * CT Chest 07/15/18: Moderate to large bilateral pleural effusion and associated consolidations, pathcy grround-glass infiltrates/edema noted within bilateral upper lobes * Chest xray (07/24/18): worsening infiltrates, satisfactory position of recently placed tracheostomy device. Satisfactory position of remaining support apparatus including venous access catheter and recently placed nasogastric tube * Rocephin 2gm IVPB Q12H (07/14/18 through 07/20/18) * Meropenem 1 gm IV Q8H (active since 07/20/18)-->will need renewal by ID * Vancomycin 1 gram IVPB Q24H (being held since 07/20/18) discontinued by ID * Bedside Thoracic U/S 07/17/18 did not reveal enough pleural effusion for Thoracentesis and per IR on 07/28/18 nothing to drain * Lasix 20 mg IV Q12H * Procalcitonin downtrending to 0.75. 3) Ventricular Tachycardia NSTEMI Apical Thrombus LLE DVT Assessment/Plan * Code Blue 07/10: SVT==>VT required amiodarone, magnesium, one shock delivered * Code Blue 07/20: vtach s/p amiodarone, fluid, calcium gluconate, required compressions and shock * Cardiology Dr Francisco on case help appreciated * Echocardiogram (07/07/18): left ventricle systolic function is borderline, eje ction fraction is 45-50%, no aortic regurgitation is present, mitral regurgitation is mild. Mild tricuspid regurgitation. mild pulmonary hypertension, mild pulmonic valvular regurgitation * Contrast Echo: Large apical hypokinesis a large 30 x 20 mm soft tissue apical sessile mass suggestive of thrombus overall fraction 40%. Obtain a HUBERT or/consider stress card myopathy if coronary disease is excluded further findings per report * Amiodarone discontinued * Monitor electrolytes * Heparin drip changed to Eliquis 2.5 mg 2x/day 07/18/18 and then patient placed back on Heparin Drip 07/21/18 for pending Tracheostomy on 07/24/18 * Aspirin 81 mg PO 1x/day. Considering patient already on Eliquis and to reduce chance of bleeding, Plavix was discontinued 07/18/18. * Propranolol 5mg PO TID * Crestor 2.5 mg PO HS * Will need to f/u cardiology in regards to cath 4) Urinary Tract Infection Assessment/Plan * Infectious disease on board help appreciated * 07/07/18: Urine: E. Coli * 07/09/18: Urine: No growth * 07/14/18: Urine culture: No growth * Urine Culture 07/20/18: No growth 5) Diabetes-->chronic Assessment/Plan * HgBA1c: 7.8 * Hypoglycemic protocol * Lantus 20 units subcutaneous at bedtime Q12 6) Acute on Chronic Renal Failure Assessment/Plan * Nephrology (Dr. Hyde) on board--> help appreciated * Patient will likely not need dialysis * Renal function continues to improve 7) Hyperthyroidism? Low TSH, and Free T4 Thyroid Storm Assessment/Plan * Note Thyroid studies taken before amiodarone was given (please advised this is not amiodarone induced her levels were abnormal prior) * Patient does not have prior thyroid history * Endocrinology (Dr. 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 She will need outpatient FNA Bx of the complex Left Lobe cyst (please see full report) * Methimazole 20mg PO TID * Propranolol 5 mg PO TID * Monitor LFTs 8) Anemia Likely Secondary to Chronic Diseases Assessment/Plan * Iron normal, TIBC low, Iron Saturation normal, Ferritin normal * Stool occult blood negative * B12 normal * Folate Normal * Being transfused 1 unit PRBC 07/22/18 9) Transminitis-->improving * Likely secondary to Sepsis and Amiodarone (which was discontinued) * Hepatitis serology negative * Slightly elevated from normal on 07/20/18 but could be secondary to PEDIATRIC CARE COORDINATOR/Code Blue 07/20/18 10) Vitamin D deficiency Assessment plan * 50,000 international units once a week for at least 8-12 weeks started on 07/11/18 11) Thrombocytopenia-->resolved Assessment plan * Sepsis, vs Methimazole? * Patient was on Heparin Drip through 07/18/18 and then started on Eliquis on this date * Heparin drip for procedures * patient was on Eliquis prior but given tracheostomy and now peg placement * Fibrinogen elevated * HIT and RUSTY both negative for HIT * Currently normalized 12) 13 mm Left Adrenal Nodule * As seen on CT Chest 07/16/18 * Will need outpatient follow up for cross sectional imaging for better characterization 13) Hypernatremia-->resolved * Free water 250 ml 3x/day via OGT * Na now normal 14) LLE DVT * Heparin drip changed to Eliquis 2.5 mg 2x/day 07/18/18 and then patient placed back on Heparin Drip 07/21/18. Patient has completed both trach and peg. Patient is awaiting possible cardiac cath. * Acute thrombosis of the left common femoral and femoral veins with severe reduction of the venous return on 07/18/18 venous doppler 15) Prophylactic measure * Protonix 40mg PO BID * Lactobacillus 1 cap PO BID * Trach and Peg * Awaiting cardaic cath * SCD on Right and contraindicated on Left due to DVT * Peg feedings * PICC Line 07/31/18 * Off precedex * Off ativan * Note: speak to patient in alexis to assess neurologic status-->she does follow Disposition: Patient is awaiting cardiac cath in light of cardiac thrombus. Patient does not have insurance: please f/u with social/case management to start insurance process for potential LTAC/rehab. She will need significant rehab to regain muscle and strength. Objective - Vital Signs/Intake and Output Vital Signs (last 24 hours): Temp Pulse Resp BP Pulse Ox 97.0 F L 97 H 13 127/73 100 08/02/18 12:00 08/02/18 16:00 08/02/18 16:00 08/02/18 16:00 08/02/18 16:00 Intake and Output: 08/02/18 08/02/18 06:59 18:59 Intake Total 700 450 Output Total 600 Balance 100 450 - Medications Medications: Current Medications Acetaminophen (Tylenol 325mg Tab) 650 mg PEG Q6 PRN PRN Reason: Pain, moderate (4-7) Last Admin: 08/01/18 09:31 Dose: 650 mg Albuterol/Ipratropium (Duoneb 3 Mg/0.5 Mg (3 Ml) Ud) 3 ml INH RQ4 PRN PRN Reason: Shortness of Breath Last Admin: 07/28/18 20:12 Dose: 3 ml Apixaban (Eliquis) 5 mg PO BID [facility] Last Admin: 08/02/18 17:30 Dose: 5 mg Ascorbic Acid (Vitamin C 500 Mg Tab) 1,000 mg NG DAILY [facility] Last Admin: 08/02/18 09:37 Dose: 1,000 mg Aspirin (Aspirin Chewable) 81 mg GT DAILY [facility] Last Admin: 08/02/18 09:37 Dose: 81 mg Insulin Aspart (Novolog) 0 unit SC Q6 [facility]; Protocol Last Admin: 08/02/18 17:34 Dose: 2 units Insulin Glargine (Lantus) 15 unit SC Q12 [facility] Lactobacillus Acidophilus (Bacid Acidophilus) 1 cap PO Q12H [facility] Last Admin: 08/02/18 08:24 Dose: 1 cap Methimazole (Tapazole) 20 mg PO Q8 [facility] Last Admin: 08/02/18 13:54 Dose: 20 mg Modafinil (Provigil) 100 mg PEG DAILY [facility] Last Admin: 08/02/18 09:37 Dose: 100 mg Multivitamins/Vitamin C (Multi-Delyn Liquid) 5 ml PO DAILY [facility] Last Admin: 08/02/18 09:37 Dose: 5 ml Pantoprazole Sodium (Protonix Susp) 40 mg PO DAILY [facility] Last Admin: 08/02/18 09:37 Dose: 40 mg Rosuvastatin Calcium (Crestor) 2.5 mg PO HS [facility] Last Admin: 08/01/18 21:51 Dose: 2.5 mg Vitamin A (Vitamin A & D Oint Ud Foilpak) 1 ea TOP BID [facility] Last Admin: 08/02/18 17:30 Dose: 1 ea - Labs Labs: 08/02/18 06:50 08/02/18 06:50 PT 17.7 SECONDS (9.7-12.2) H 07/28/18 06:19 INR 1.6 07/28/18 06:19 APTT 52 SECONDS (21-34) H 07/31/18 05:56
[2018-08-02] MEDS: Rosuvastatin Calcium 2.5 mg Tab PO SCH (21:18)
[2018-08-03] MEDS: (Novolog) Insulin Aspart, Recombinant 100 u/ml 10 ml vial SC SCH ×5 (05:41→23:48)
[2018-08-03 06:41] LABS: BASO # 0.1 K/uL (0.0-0.2); BASO % 1.1 % (0.0-2.0); EOS # 0.5 K/uL (0.0-0.7); EOS % 5.8 % (0.0-4.0); HEMOGLOBIN 11.1 g/dL (11.0-16.0); LYMPH # 1.9 K/uL (1.0-4.3); LYMPH % 23.3 % (20.0-40.0); MEAN CELL VOLUME 89.4 fL (81.0-99.0); MEAN CORPUSCULAR HEMOGLOBIN 29.8 pg (27.0-31.0); MEAN CORPUSCULAR HGB CONC 33.3 g/dL (33.0-37.0); MEAN PLATELET VOLUME 9.2 fL (7.2-11.7); MONO # 0.8 K/uL (0.0-0.8); MONO % 10.2 % (0.0-10.0); NEUT # 4.8 K/uL (1.8-7.0); NEUT % 59.6 % (50.0-75.0); NRBC % 0.1 % (0.0-2.0); RBC 3.74 Mil/uL (3.80-5.20); RED CELL DISTRIBUTION WIDTH 14.8 % (11.5-14.5)
[2018-08-03 07:04] LABS: ALB/GLOB RATIO 0.8 (1.0-2.1); ALBUMIN 3.6 g/dL (3.5-5.0); ALT/SGPT 44 U/L (9-52); AST/SGOT 61 U/L (14-36); BLOOD UREA NITROGEN 36 mg/dL (7-17); CALCIUM 9.5 mg/dl (8.6-10.4); GFR NON-AFRICAN AMERICAN > 60
[2018-08-03] MEDS: Lactobacillus Acidophilus 500 MU Cap PO SCH ×2 (08:28→20:07)
[2018-08-03] MEDS: Pantoprazole 40 mg Susp UD PO SCH (10:39)
[2018-08-03] MEDS: (Lantus) Insulin Glargine, Recombinant SC SCH ×2 (10:39→21:22)
[2018-08-03] MEDS: Vitamins A & D Oint UD Foilpak TOP SCH ×2 (10:40→17:46)
[2018-08-03] MEDS: Multiple Vitamins Oral Solution PO SCH (10:44)
--- NOTE | 2018-08-03 12:39 | CP.CCUPN ---
<Brayan Gonzalez - Last Filed: 08/03/18 18:02> CCU Subjective - Physician Review Events Since Last Encounter (Free Text): 08/03/18 12:38 No acute events overnight Subjective (Free Text): 08/03/18 12:37 PGY1 Critical Care Progress Note for Dr. Nesbitt Patient seen at bedside this morning. Patient is alert and able to follow 1-step commands. Patient is currently with PEG, Tracheostomy, and PICC line. No bleeding. No acute issues. ROS could not be obtained due to clinical condition. Critical Care Time Spent (in minutes): 35 CCU Objective - Vital Signs / Intake & Output Intake and Output (Last 8hrs): Intake & Output 08/02/18 08/03/18 08/03/18 22:59 06:59 14:59 Intake Total 550 300 120 Output Total 650 200 0 Balance -100 100 120 Weight 103 lb Intake: Intake, IV Amount 0 0 Left PICC 0 0 Tube Feeding 400 300 100 Other 150 20 Output: Urine 650 200 Urine, Voided 650 200 Emesis 0 Other: # Voids Urine, Voided 1 1 # Bowel Movements 1 0 - Physical Exam Head: Positive for: Atraumatic, Normocephalic Pupils: Positive for: PERRL. Negative for: Sluggish, Pinpoint Extroacular Muscles: Positive for: EOMI. Negative for: Gaze Palsy Conjunctiva: Positive for: Normal. Negative for: Injected, Icteric Mouth: Positive for: Moist Mucous Membranes Nose (External): Positive for: Atraumatic. Negative for: Abrasion, Contusion, Laceration Nose (Internal): Positive for: No Active Bleeding. Negative for: Epistaxis Neck: Positive for: Normal Range of Motion, Trachea Midline. Negative for: JVD Respiratory/Chest: Positive for: Good Air Exchange, Rhonchi (mild ronchi in bilateral bases), Other (trach). Negative for: Wheezes, Rales Cardiovascular: Positive for: Normal S1, S2, Peripheal Pulses Present, Tachycardic. Negative for: Regular Rate and Rhythm Abdomen: Positive for: Normal Bowel Sounds. Negative for: Tenderness, Distention, Rebound, Guarding Upper Extremity: Positive for: Normal Inspection, NORMAL PULSES. Negative for: Cyanosis, Edema Lower Extremity: Positive for: Normal Inspection. Negative for: Edema, CALF TENDERNESS Neurological: Positive for: Other Skin: Positive for: Warm, Dry, Normal Color Psychiatric: Positive for: Alert - Medications Active Medications: Active Medications Generic Name Dose Route Start Last Admin Trade Name Freq PRN Reason Stop Dose Admin Acetaminophen 650 mg 07/28/18 13:39 08/01/18 09:31 Tylenol 325mg Tab PEG 650 mg Q6 PRN Administration Pain, moderate (4-7) Albuterol/Ipratropium 3 ml 07/28/18 16:34 07/28/18 20:12 Duoneb 3 Mg/0.5 Mg (3 Ml) Ud INH 3 ml RQ4 PRN Administration Shortness of Breath Apixaban 5 mg 07/31/18 18:00 08/03/18 10:43 Eliquis PO 5 mg BID MANOLO Administration Ascorbic Acid 1,000 mg 07/24/18 10:00 08/03/18 10:39 Vitamin C 500 Mg Tab NG 1,000 mg DAILY MANOLO Administration Aspirin 81 mg 07/17/18 10:00 08/03/18 10:38 Aspirin Chewable GT 81 mg DAILY MANOLO Administration Insulin Aspart 0 unit 07/11/18 08:28 08/03/18 11:39 Novolog SC 4 units Q6 MANOLO Administration Protocol Insulin Glargine 15 unit 08/02/18 22:00 08/03/18 10:39 Lantus SC 15 u Q12 MANOLO Administration Lactobacillus Acidophilus 1 cap 07/08/18 20:00 08/03/18 08:28 Bacid Acidophilus PO 1 cap Q12H MANOLO Administration Methimazole 20 mg 07/27/18 14:00 08/03/18 05:43 Tapazole PO 20 mg Q8 MANOLO Administration Modafinil 100 mg 08/02/18 10:00 08/03/18 10:39 Provigil PEG 100 mg DAILY MANOLO Administration Multivitamins/Vitamin C 5 ml 07/24/18 10:00 08/03/18 10:44 Multi-Delyn Liquid PO 5 ml DAILY MANOLO Administration Pantoprazole Sodium 40 mg 07/20/18 10:00 08/03/18 10:39 Protonix Susp PO 40 mg DAILY MANOLO Administration Rosuvastatin Calcium 2.5 mg 07/13/18 22:00 08/02/18 21:18 Crestor PO 2.5 mg HS MANOLO Administration Vitamin A 1 ea 07/28/18 18:00 08/03/18 10:40 Vitamin A & D Oint Ud Foilpak TOP 1 ea BID MANOLO Administration - Patient Studies Lab Studies: Lab Studies 08/03/18 08/03/18 08/03/18 Range/Units 06:32 06:32 05:32 WBC 8.0 (4.8-10.8) K/uL RBC 3.74 L (3.80-5.20) Mil/uL Hgb 11.1 (11.0-16.0) g/dL Hct 33.4 L (34.0-47.0) % MCV 89.4 (81.0-99.0) fL MCH 29.8 (27.0-31.0) pg MCHC 33.3 (33.0-37.0) g/dL RDW 14.8 H (11.5-14.5) % Plt Count 335 (130-400) K/uL MPV 9.2 (7.2-11.7) fL Neut % (Auto) 59.6 (50.0-75.0) % Lymph % (Auto) 23.3 (20.0-40.0) % [place] % (Auto) 10.2 H (0.0-10.0) % Eos % (Auto) 5.8 H (0.0-4.0) % Baso % (Auto) 1.1 (0.0-2.0) % Neut # (Auto) 4.8 (1.8-7.0) K/uL Lymph # (Auto) 1.9 (1.0-4.3) K/uL [place] # (Auto) 0.8 (0.0-0.8) K/uL Eos # (Auto) 0.5 (0.0-0.7) K/uL Baso # (Auto) 0.1 (0.0-0.2) K/uL Sodium 145 (132-148) mmol/L Potassium 4.6 (3.6-5.2) mmol/L Chloride 111 H (98-107) mmol/L Carbon Dioxide 25 (22-30) mmol/L Anion Gap 14 (10-20) BUN 36 H (7-17) mg/dL Creatinine 0.8 (0.7-1.2) mg/dL Est GFR ( Amer) > 60 Est GFR (Non-Af Amer) > 60 POC Glucose (mg/dL) 242 H (65-110) mg/dL Random Glucose 246 H (65-105) mg/dL Calcium 9.5 (8.6-10.4) mg/dl Phosphorus 5.4 H (2.5-4.5) mg/dL Magnesium 2.4 H (1.6-2.3) mg/dL Total Bilirubin 0.7 (0.2-1.3) mg/dL AST 61 H D (14-36) U/L ALT 44 (9-52) U/L Alkaline Phosphatase 265 H D (38-126) U/L Total Protein 7.8 (6.3-8.3) g/dL Albumin 3.6 (3.5-5.0) g/dL Globulin 4.2 H (2.2-3.9) gm/dL Albumin/Globulin Ratio 0.8 L (1.0-2.1) 08/02/18 08/02/18 Range/Units 23:52 17:32 WBC (4.8-10.8) K/uL RBC (3.80-5.20) Mil/uL Hgb (11.0-16.0) g/dL Hct (34.0-47.0) % MCV (81.0-99.0) fL MCH (27.0-31.0) pg MCHC (33.0-37.0) g/dL RDW (11.5-14.5) % Plt Count (130-400) K/uL MPV (7.2-11.7) fL Neut % (Auto) (50.0-75.0) % Lymph % (Auto) (20.0-40.0) % [place] % (Auto) (0.0-10.0) % Eos % (Auto) (0.0-4.0) % Baso % (Auto) (0.0-2.0) % Neut # (Auto) (1.8-7.0) K/uL Lymph # (Auto) (1.0-4.3) K/uL [place] # (Auto) (0.0-0.8) K/uL Eos # (Auto) (0.0-0.7) K/uL Baso # (Auto) (0.0-0.2) K/uL Sodium (132-148) mmol/L Potassium (3.6-5.2) mmol/L Chloride (98-107) mmol/L Carbon Dioxide (22-30) mmol/L Anion Gap (10-20) BUN (7-17) mg/dL Creatinine (0.7-1.2) mg/dL Est GFR ( Amer) Est GFR (Non-Af Amer) POC Glucose (mg/dL) 169 H 173 H (65-110) mg/dL Random Glucose (65-105) mg/dL Calcium (8.6-10.4) mg/dl Phosphorus (2.5-4.5) mg/dL Magnesium (1.6-2.3) mg/dL Total Bilirubin (0.2-1.3) mg/dL AST (14-36) U/L ALT (9-52) U/L Alkaline Phosphatase (38-126) U/L Total Protein (6.3-8.3) g/dL Albumin (3.5-5.0) g/dL Globulin (2.2-3.9) gm/dL Albumin/Globulin Ratio (1.0-2.1) Laboratory Results - last 24 hr 08/02/18 08/02/18 08/03/18 17:32 23:52 05:32 WBC RBC Hgb Hct MCV MCH MCHC RDW Plt Count MPV Neut % (Auto) Lymph % (Auto) [place] % (Auto) Eos % (Auto) Baso % (Auto) Neut # (Auto) Lymph # (Auto) [place] # (Auto) Eos # (Auto) Baso # (Auto) Sodium Potassium Chloride Carbon Dioxide Anion Gap BUN Creatinine Est GFR ( Amer) Est GFR (Non-Af Amer) POC Glucose (mg/dL) 173 H 169 H 242 H Random Glucose Calcium Phosphorus Magnesium Total Bilirubin AST ALT Alkaline Phosphatase Total Protein Albumin Globulin Albumin/Globulin Ratio 08/03/18 08/03/18 06:32 06:32 WBC 8.0 RBC 3.74 L Hgb 11.1 Hct 33.4 L MCV 89.4 MCH 29.8 MCHC 33.3 RDW 14.8 H Plt Count 335 MPV 9.2 Neut % (Auto) 59.6 Lymph % (Auto) 23.3 [place] % (Auto) 10.2 H Eos % (Auto) 5.8 H Baso % (Auto) 1.1 Neut # (Auto) 4.8 Lymph # (Auto) 1.9 [place] # (Auto) 0.8 Eos # (Auto) 0.5 Baso # (Auto) 0.1 Sodium 145 Potassium 4.6 Chloride 111 H Carbon Dioxide 25 Anion Gap 14 BUN 36 H Creatinine 0.8 Est GFR ( Amer) > 60 Est GFR (Non-Af Amer) > 60 POC Glucose (mg/dL) Random Glucose 246 H Calcium 9.5 Phosphorus 5.4 H Magnesium 2.4 H Total Bilirubin 0.7 AST 61 H D ALT 44 Alkaline Phosphatase 265 H D Total Protein 7.8 Albumin 3.6 Globulin 4.2 H Albumin/Globulin Ratio 0.8 L Fingerstick Blood Sugar Results: 247 Review of Systems - Review of Systems Systems not reviewed;Unavailable: Acuity of Condition Critical Care Progress Note - Nutrition Nutrition: Nutrition Category Date Time Status NPO Diet [DIET] Diets 07/25/18 Breakfast Active Assessment/Plan - Assessment and Plan (Free Text) Assessment: This is a 52 yo female with PMH of DM2 and hypercholesterolemia who presented to with cough, post-tussive emesis, and malaise x2-3 weeks. She was admitted to the ICU for respiratory failure and acute renal failure. Of note, patient was CODE BLUE on 07/10 (V-tach). Remains intubated after failing extubation, as patient vomited just hours after extubation. Currently with tracheostomy (performed by Dr. Melchor.) Patient is hemodynamically stable, and is status-post PEG placement with Dr. Murray and GI Fellow Dr. Amaya. Plan Neuro Anoxic brain injury - Hemodynamically stable - Continue Modafinil 100mg PO Daily Agitation (resolved) - Discontinued: valproic acid 500mg liquid BID Pulm Chronic Hypoxic Respiratory Failure secondary to pulmonary congestion, renal failure * Status-post trach * CXR shows congestion and R lower lobe infiltrate * Continue bronchodilators * C-PAP trials daily - today tolerated 4 hours C-PAP - Goal SaO2 > 92% and paO2 > 55 * FiO2 titrated down to 30% (for goal PO2/FiO2 ratio > 300) * CT angiogram obtained 07/26 to rule out PE -- Negative for PE. - Duonebs 2 ml INH RQ4 - Status-post tracheostomy 07/[address] Melchor CV Hypotension - Normotensive: 127/73 - Discontinued: Levophed - Discontinued: Midodrine - Cardiac arrest from unknown etiology - Cardiology consulted. Appreciate recs. - Repeat ECHO from shows left ventricular thrombus; - Doppler show LLE DVT, right cephalic vein thrombus - Discontinued: Heparin drip - Start Eliquis 5mg PO BID Daily - Continue daily aspirin 81 mg, crestor 2.5 mg PO HS - Discontinued propranolol 5mg PO TID CHADsVASc Score= 3 * Stroke risk 3.2% per year * 4.6% risk of stroke/TIA/systemic embolism - PICC line placed MSK - OOB as tolerated with assistance - Early Mobilization highly recommended - PT/OT - Discontinue central line (right subclavian) - PICC line order placed GI - Start: Vital 1.2 tube feeds Max Rate #35 - Protonix 40 mg IV daily - Dr. Murray Consulted: recommendations appreciated - Pelvic/ trasnvaginal ultrasound performed - Patient's states patient still has regular menstrual cycles monthly - Monitor H/H Renal - Acute renal failure resolving - Avoid nephrotoxic drugs Heme: - Anemia: Hgb=11.2; improved - No acute issues - Continue to monitor H/H Endo - ISS for coverage, q6h - Increased Lantus 10mg Q12 --> Lantus 15mg Q12 - Continue Methimazole 20mg PO Q8 - FSH LH and Prolactin Infectious Disease - Discontinued: Merrem 1 gm daily - Discontinued: vancomycin 1 gm daily - Negative cultures - ID following, appreciate all recs Dispo: Pending another PS/CPAP trial, tracheostomy placed 07/24 FEN: NPO, on Tube Feeds Access: Peripheral IVs, right subclavian TLC, ETT, OGT Consults: Palliative, Endo, Nephro, Cardio, Neuro, Cardio, GI Ppx: Protonix for GI, SCDs Code status: FULL Next of kin: Martina Isaacs () Prognosis: Guarded Patient seen, reviewed, and case discussed with attending, Dr. Laz Gonzalez PGY1 <Dian Nesbitt - Last Filed: 08/04/18 12:51> CCU Objective - Vital Signs / Intake & Output Vital Signs (Last 4 hours): Vital Signs Pulse Resp BP Pulse Ox 08/04/18 09:00 86 14 119/70 100 Intake and Output (Last 8hrs): Intake & Output 08/03/18 08/04/18 08/04/18 22:59 06:59 14:59 Intake Total 550 250 150 Output Total 2 1 Balance 548 249 150 Intake: Tube Feeding 400 150 50 Other 150 100 100 Output: Urine/Stool Mix 2 1 Emesis 0 Other: # Voids Urine, Voided 0 # Bowel Movements 0 - Medications Active Medications: Active Medications Generic Name Dose Route Start Last Admin Trade Name Freq PRN Reason Stop Dose Admin Acetaminophen 650 mg 07/28/18 13:39 08/03/18 23:49 Tylenol 325mg Tab PEG 650 mg Q6 PRN Administration Pain, moderate (4-7) Albuterol/Ipratropium 3 ml 07/28/18 16:34 07/28/18 20:12 Duoneb 3 Mg/0.5 Mg (3 Ml) Ud INH 3 ml RQ4 PRN Administration Shortness of Breath Apixaban 5 mg 07/31/18 18:00 08/04/18 09:10 Eliquis PO 5 mg BID MANOLO Administration Ascorbic Acid 1,000 mg 07/24/18 10:00 08/04/18 09:10 Vitamin C 500 Mg Tab NG 1,000 mg DAILY MANOLO Administration Aspirin 81 mg 07/17/18 10:00 08/04/18 09:10 Aspirin Chewable GT 81 mg DAILY MANOLO Administration Insulin Aspart 0 unit 07/11/18 08:28 08/04/18 06:00 Novolog SC Not Given Q6 MANOLO Protocol Insulin Glargine 15 unit 08/02/18 22:00 08/04/18 09:14 Lantus SC 15 u Q12 MANOLO Administration Lactobacillus Acidophilus 1 cap 07/08/18 20:00 08/04/18 09:00 Bacid Acidophilus PO 1 cap Q12H MANOLO Administration Methimazole 20 mg 07/27/18 14:00 08/04/18 06:00 Tapazole PO 20 mg Q8 MANOLO Administration Modafinil 100 mg 08/02/18 10:00 08/04/18 09:11 Provigil PEG 100 mg DAILY MANOLO Administration Multivitamins/Vitamin C 5 ml 07/24/18 10:00 08/04/18 09:11 Multi-Delyn Liquid PO 5 ml DAILY MANOLO Administration Pantoprazole Sodium 40 mg 07/20/18 10:00 08/04/18 09:10 Protonix Susp PO 40 mg DAILY MANOLO Administration Rosuvastatin Calcium 2.5 mg 07/13/18 22:00 08/03/18 21:21 Crestor PO 2.5 mg HS MANOLO Administration Vitamin A 1 ea 07/28/18 18:00 08/04/18 09:11 Vitamin A & D Oint Ud Foilpak TOP 1 ea BID MANOLO Administration - Patient Studies Lab Studies: Lab Studies 08/04/18 08/04/18 08/04/18 Range/Units 11:24 06:14 06:14 WBC 6.7 (4.8-10.8) K/uL RBC 3.45 L (3.80-5.20) Mil/uL Hgb 10.3 L (11.0-16.0) g/dL Hct 30.9 L (34.0-47.0) % MCV 89.4 (81.0-99.0) fL MCH 29.7 (27.0-31.0) pg MCHC 33.2 (33.0-37.0) g/dL RDW 14.8 H (11.5-14.5) % Plt Count 306 (130-400) K/uL MPV 8.6 (7.2-11.7) fL Neut % (Auto) 50.7 (50.0-75.0) % Lymph % (Auto) 27.8 (20.0-40.0) % [place] % (Auto) 10.4 H (0.0-10.0) % Eos % (Auto) 10.1 H (0.0-4.0) % Baso % (Auto) 1.0 (0.0-2.0) % Neut # (Auto) 3.4 (1.8-7.0) K/uL Lymph # (Auto) 1.9 (1.0-4.3) K/uL [place] # (Auto) 0.7 (0.0-0.8) K/uL Eos # (Auto) 0.7 (0.0-0.7) K/uL Baso # (Auto) 0.1 (0.0-0.2) K/uL Sodium 143 (132-148) mmol/L Potassium 4.5 (3.6-5.2) mmol/L Chloride 110 H (98-107) mmol/L Carbon Dioxide 26 (22-30) mmol/L Anion Gap 11 (10-20) BUN 43 H (7-17) mg/dL Creatinine 0.9 (0.7-1.2) mg/dL Est GFR ( Amer) > 60 Est GFR (Non-Af Amer) > 60 POC Glucose (mg/dL) 162 H (65-110) mg/dL Random Glucose 111 H (65-105) mg/dL Calcium 9.2 (8.6-10.4) mg/dl Phosphorus 5.8 H (2.5-4.5) mg/dL Magnesium 2.6 H (1.6-2.3) mg/dL Total Bilirubin 0.7 (0.2-1.3) mg/dL AST 91 H D (14-36) U/L ALT 70 H D (9-52) U/L Alkaline Phosphatase 262 H (38-126) U/L Total Protein 7.3 (6.3-8.3) g/dL Albumin 3.3 L (3.5-5.0) g/dL Globulin 4.1 H (2.2-3.9) gm/dL Albumin/Globulin Ratio 0.8 L (1.0-2.1) 08/04/18 08/03/18 08/03/18 Range/Units 05:35 23:22 17:58 WBC (4.8-10.8) K/uL RBC (3.80-5.20) Mil/uL Hgb (11.0-16.0) g/dL Hct (34.0-47.0) % MCV (81.0-99.0) fL MCH (27.0-31.0) pg MCHC (33.0-37.0) g/dL RDW (11.5-14.5) % Plt Count (130-400) K/uL MPV (7.2-11.7) fL Neut % (Auto) (50.0-75.0) % Lymph % (Auto) (20.0-40.0) % [place] % (Auto) (0.0-10.0) % Eos % (Auto) (0.0-4.0) % Baso % (Auto) (0.0-2.0) % Neut # (Auto) (1.8-7.0) K/uL Lymph # (Auto) (1.0-4.3) K/uL [place] # (Auto) (0.0-0.8) K/uL Eos # (Auto) (0.0-0.7) K/uL Baso # (Auto) (0.0-0.2) K/uL Sodium (132-148) mmol/L Potassium (3.6-5.2) mmol/L Chloride (98-107) mmol/L Carbon Dioxide (22-30) mmol/L Anion Gap (10-20) BUN (7-17) mg/dL Creatinine (0.7-1.2) mg/dL Est GFR ( Amer) Est GFR (Non-Af Amer) POC Glucose (mg/dL) 123 H 192 H 203 H (65-110) mg/dL Random Glucose (65-105) mg/dL Calcium (8.6-10.4) mg/dl Phosphorus (2.5-4.5) mg/dL Magnesium (1.6-2.3) mg/dL Total Bilirubin (0.2-1.3) mg/dL AST (14-36) U/L ALT (9-52) U/L Alkaline Phosphatase (38-126) U/L Total Protein (6.3-8.3) g/dL Albumin (3.5-5.0) g/dL Globulin (2.2-3.9) gm/dL Albumin/Globulin Ratio (1.0-2.1) 08/03/18 Range/Units 11:19 WBC (4.8-10.8) K/uL RBC (3.80-5.20) Mil/uL Hgb (11.0-16.0) g/dL Hct (34.0-47.0) % MCV (81.0-99.0) fL MCH (27.0-31.0) pg MCHC (33.0-37.0) g/dL RDW (11.5-14.5) % Plt Count (130-400) K/uL MPV (7.2-11.7) fL Neut % (Auto) (50.0-75.0) % Lymph % (Auto) (20.0-40.0) % [place] % (Auto) (0.0-10.0) % Eos % (Auto) (0.0-4.0) % Baso % (Auto) (0.0-2.0) % Neut # (Auto) (1.8-7.0) K/uL Lymph # (Auto) (1.0-4.3) K/uL [place] # (Auto) (0.0-0.8) K/uL Eos # (Auto) (0.0-0.7) K/uL Baso # (Auto) (0.0-0.2) K/uL Sodium (132-148) mmol/L Potassium (3.6-5.2) mmol/L Chloride (98-107) mmol/L Carbon Dioxide (22-30) mmol/L Anion Gap (10-20) BUN (7-17) mg/dL Creatinine (0.7-1.2) mg/dL Est GFR ( Amer) Est GFR (Non-Af Amer) POC Glucose (mg/dL) 247 H (65-110) mg/dL Random Glucose (65-105) mg/dL Calcium (8.6-10.4) mg/dl Phosphorus (2.5-4.5) mg/dL Magnesium (1.6-2.3) mg/dL Total Bilirubin (0.2-1.3) mg/dL AST (14-36) U/L ALT (9-52) U/L Alkaline Phosphatase (38-126) U/L Total Protein (6.3-8.3) g/dL Albumin (3.5-5.0) g/dL Globulin (2.2-3.9) gm/dL Albumin/Globulin Ratio (1.0-2.1) Laboratory Results - last 24 hr 08/03/18 08/03/18 08/03/18 11:19 17:58 23:22 WBC RBC Hgb Hct MCV MCH MCHC RDW Plt Count MPV Neut % (Auto) Lymph % (Auto) [place] % (Auto) Eos % (Auto) Baso % (Auto) Neut # (Auto) Lymph # (Auto) [place] # (Auto) Eos # (Auto) Baso # (Auto) Sodium Potassium Chloride Carbon Dioxide Anion Gap BUN Creatinine Est GFR ( Amer) Est GFR (Non-Af Amer) POC Glucose (mg/dL) 247 H 203 H 192 H Random Glucose Calcium Phosphorus Magnesium Total Bilirubin AST ALT Alkaline Phosphatase Total Protein Albumin Globulin Albumin/Globulin Ratio 08/04/18 08/04/18 08/04/18 05:35 06:14 06:14 WBC 6.7 RBC 3.45 L Hgb 10.3 L Hct 30.9 L MCV 89.4 MCH 29.7 MCHC 33.2 RDW 14.8 H Plt Count 306 MPV 8.6 Neut % (Auto) 50.7 Lymph % (Auto) 27.8 [place] % (Auto) 10.4 H Eos % (Auto) 10.1 H Baso % (Auto) 1.0 Neut # (Auto) 3.4 Lymph # (Auto) 1.9 [place] # (Auto) 0.7 Eos # (Auto) 0.7 Baso # (Auto) 0.1 Sodium 143 Potassium 4.5 Chloride 110 H Carbon Dioxide 26 Anion Gap 11 BUN 43 H Creatinine 0.9 Est GFR ( Amer) > 60 Est GFR (Non-Af Amer) > 60 POC Glucose (mg/dL) 123 H Random Glucose 111 H Calcium 9.2 Phosphorus 5.8 H Magnesium 2.6 H Total Bilirubin 0.7 AST 91 H D ALT 70 H D Alkaline Phosphatase 262 H Total Protein 7.3 Albumin 3.3 L Globulin 4.1 H Albumin/Globulin Ratio 0.8 L 08/04/18 11:24 WBC RBC Hgb Hct MCV MCH MCHC RDW Plt Count MPV Neut % (Auto) Lymph % (Auto) [place] % (Auto) Eos % (Auto) Baso % (Auto) Neut # (Auto) Lymph # (Auto) [place] # (Auto) Eos # (Auto) Baso # (Auto) Sodium Potassium Chloride Carbon Dioxide Anion Gap BUN Creatinine Est GFR ( Amer) Est GFR (Non-Af Amer) POC Glucose (mg/dL) 162 H Random Glucose Calcium Phosphorus Magnesium Total Bilirubin AST ALT Alkaline Phosphatase Total Protein Albumin Globulin Albumin/Globulin Ratio Critical Care Progress Note - Nutrition Nutrition: Nutrition Category Date Time Status NPO Diet [DIET] Diets 07/25/18 Breakfast Active Assessment/Plan - Assessment and Plan (Free Text) Plan: Patient seen and examined with above resident. PAtietn on chronic ventialtor dependent respiratory failure with chornic peg tube feeds -tolerating CPAP -continue current management -replace electrolytes - Date & Time Date: 08/03/18 Time: 12:51
--- NOTE | 2018-08-03 19:10 | CP.PCM.PN ---
Subjective - Date & Time of Evaluation Date of Evaluation: 08/03/18 Time of Evaluation: 13:30 - Subjective Subjective: Hospitalist Progress Note Patient was seen and examined at 1:30 PM 08/03/18 Goldie present at bedside and who spoke in Alexis to patient who was awake and following commands during exam and smiling at times CT Head 08/01/18: age related changes Chest X Ray 07/31/18: no evidence of infiltrate General: Trach on SIMV mode HEENT: NCA, Pupils are round and reactive to light, EOMI, NO cervical/supraclavicular/submandibular lymphadenopathy Cardio: NS1 and NS2, NO M/R/G Respiratory: Diffuse course breath sounds bilaterallly GI: BSx4, Soft, ND, NO HSM, NO guarding, NO rebound tenderness, PEG Tube insertion site without evidence of surrounding cellulitis Ext: Pulses are strong and equal, Capillary Refill is 2 seconds, NO edema noted Neuro: exam not possible at this time Skin: Blanchable erythema noted on the lower buttocks area. NO other ulceration noted on any of the ophelia prominences Assessment/plan 1) Septic Shock Pneumonia Urinary Tract Infection Assessment/Plan * Infectious Disease (Dr. Brock) on case-->help appreciated * Tmax: 101.7 F (07/19/18) * Afebrile since * Criteria: leukocytosis, tachycardia * Source: aspiration pneumonia and urinary tract infection * 07/07/18: Urine: E. Coli * 07/09/18: Urine: No growth * 07/07/18: Blood culture: no growth after 5 days X2 * 07/09/18 Blood culture: no growth after 5 days X2 * 07/14/18: blood cultures: no growth to date * 07/14/18: sputum culture: yeast species * 07/14/18: Urine culture: no growth * 07/20/18: Blood culture: no growth after 5 days X2 * 07/20/18: Urine culture: no growth * 07/21/18: No Salmonella, shigella, or campobacter * 07/23/18 Urine culture: no growth * MRSA not detected * Antibiotics * Rocephin 2gm IVPB Q12H (07/14/18 through 07/20/18) * Meropenem 1 gm IV Q8H (active since 07/20/18)-->spoke with ICU Physician Dr. Lozada 08/02/18 and as repeat Chest X Ray 07/31/18 does not show any infiltrates, NO need to restart * Vancomycin 1 gram IVPB Q24H (being held since 07/20/18)-->vancomycin level 7.7-->per id to d/c vancomycin 2) Acute Respiratory Failure Pulmonary Edema Bilateral Pleural Effusion and Consolidations Likely Secondary to Aspiration Pneumonia Assessment/Plan * Required reintubated after 2nd fail attempt; patient underwent tracheostomy 07/24/18 * off Solumedrol * Duonebs RQ4H PRN wheezing * MRSA screen: not detected * Sputum culture 07/09/18, 07/12/18, 07/14/18: yeast * Mycoplasma negative * Legionella was negative * Influenza negative * HIV negative * CT Chest 07/15/18: Moderate to large bilateral pleural effusion and associated consolidations, pathcy grround-glass infiltrates/edema noted within bilateral upper lobes * Chest xray (07/24/18): worsening infiltrates, satisfactory position of recently placed tracheostomy device. Satisfactory position of remaining support apparatus including venous access catheter and recently placed nasogastric tube * Rocephin 2gm IVPB Q12H (07/14/18 through 07/20/18) * Meropenem 1 gm IV Q8H (active since 07/20/18)-->will need renewal by ID * Vancomycin 1 gram IVPB Q24H (being held since 07/20/18) discontinued by ID * Bedside Thoracic U/S 07/17/18 did not reveal enough pleural effusion for Thoracentesis and per IR on 07/28/18 nothing to drain * Lasix 20 mg IV Q12H * Procalcitonin downtrending to 0.75. 3) Ventricular Tachycardia NSTEMI Apical Thrombus LLE DVT Assessment/Plan * Code Blue 07/10: SVT==>VT required amiodarone, magnesium, one shock delivered * Code Blue 07/20: vtach s/p amiodarone, fluid, calcium gluconate, required compressions and shock * Cardiology Dr Francisco on case help appreciated * Echocardiogram (07/07/18): left ventricle systolic function is borderline, ejection fraction is 45-50%, no aortic regurgitation is present, mitral regurgitation is mild. Mild tricuspid regurgitation. mild pulmonary hypertension, mild pulmonic valvular regurgitation * Contrast Echo: Large apical hypokinesis a large 30 x 20 mm soft tissue apical sessile mass suggestive of thrombus overall fraction 40%. Obtain a HUBERT or/consider stress card myopathy if coronary disease is excluded further findings per report * Amiodarone discontinued * Monitor electrolytes * Heparin drip changed to Eliquis 2.5 mg 2x/day 07/18/18 and then patient placed back on Heparin Drip 07/21/18 for pending Tracheostomy on 07/24/18 * Aspirin 81 mg PO 1x/day. Considering patient already on Eliquis and to reduce chance of bleeding, Plavix was discontinued 07/18/18. * Propranolol 5mg PO TID * Crestor 2.5 mg PO HS * Will need to f/u cardiology in regards to cath 4) Urinary Tract Infection Assessment/Plan * Infectious disease on board help appreciated * 07/07/18: Urine: E. Coli * 07/09/18: Urine: No growth * 07/14/18: Urine culture: No growth * Urine Culture 07/20/18: No growth 5) Diabetes-->chronic Assessment/Plan * HgBA1c: 7.8 * Hypoglycemic protocol * Lantus 20 units subcutaneous at bedtime Q12 6) Acute on Chronic Renal Failure Assessment/Plan * Nephrology (Dr. Hyde) on board--> help appreciated * Patient will likely not need dialysis * Renal function continues to improve 7) Hyperthyroidism? Low TSH, and Free T4 Thyroid Storm Assessment/Plan * Note Thyroid studies taken before amiodarone was given (please advised this is not amiodarone induced her levels were abnormal prior) * Patient does not have prior thyroid history * Endocrinology (Dr. 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 She will need outpatient FNA Bx of the complex Left Lobe cyst (please see full report) * Methimazole 20mg PO TID * Propranolol 5 mg PO TID * Monitor LFTs 8) Anemia Likely Secondary to Chronic Diseases Assessment/Plan * Iron normal, TIBC low, Iron Saturation normal, Ferritin normal * Stool occult blood negative * B12 normal * Folate Normal * Being transfused 1 unit PRBC 07/22/18 9) Transminitis-->improving * Likely secondary to Sepsis and Amiodarone (which was discontinued) * Hepatitis serology negative * Slightly elevated from normal on 07/20/18 but could be secondary to [employer]/Code Blue 07/20/18 10) Vitamin D deficiency Assessment plan * 50,000 international units once a week for at least 8-12 weeks started on 07/11/18 11) Thrombocytopenia-->resolved Assessment plan * Sepsis, vs Methimazole? * Patient was on Heparin Drip through 07/18/18 and then started on Eliquis on this date * Heparin drip for procedures * patient was on Eliquis prior but given tracheostomy and now peg placement * Fibrinogen elevated * HIT and RUSTY both negative for HIT * Currently normalized 12) 13 mm Left Adrenal Nodule * As seen on CT Chest 07/16/18 * Will need outpatient follow up for cross sectional imaging for better characterization 13) Hypernatremia-->resolved * Free water 250 ml 3x/day via OGT * Na now normal 14) LLE DVT * Heparin drip changed to Eliquis 2.5 mg 2x/day 07/18/18 and then patient placed back on Heparin Drip 07/21/18. Patient has completed both trach and peg. Patient is awaiting possible cardiac cath. * Acute thrombosis of the left common femoral and femoral veins with severe reduction of the venous return on 07/18/18 venous doppler 15) Prophylactic measure * Protonix 40mg PO BID * Lactobacillus 1 cap PO BID * Trach and Peg * Awaiting cardaic cath * SCD on Right and contraindicated on Left due to DVT * Peg feedings * PICC Line 07/31/18 * Off precedex * Off ativan * Note: speak to patient in alexis to assess neurologic status-->she does follow Disposition: Patient is awaiting cardiac cath in light of cardiac thrombus. Patient does not have insurance: please f/u with social/case management to start insurance process for potential LTAC/rehab. She will need significant rehab to regain muscle and strength. [place] D.O. Objective - Vital Signs/Intake and Output Vital Signs (last 24 hours): Temp Pulse Resp BP Pulse Ox 99.7 F H 99 H 15 114/57 L 100 08/03/18 16:00 08/03/18 18:00 08/03/18 18:00 08/03/18 18:00 08/03/18 18:00 Intake and Output: 08/03/18 08/04/18 18:59 06:59 Intake Total 920 Output Total 4 Balance 916 - Medications Medications: Current Medications Acetaminophen (Tylenol 325mg Tab) 650 mg PEG Q6 PRN PRN Reason: Pain, moderate (4-7) Last Admin: 08/01/18 09:31 Dose: 650 mg Albuterol/Ipratropium (Duoneb 3 Mg/0.5 Mg (3 Ml) Ud) 3 ml INH RQ4 PRN PRN Reason: Shortness of Breath Last Admin: 07/28/18 20:12 Dose: 3 ml Apixaban (Eliquis) 5 mg PO BID [facility] Last Admin: 08/03/18 17:45 Dose: 5 mg Ascorbic Acid (Vitamin C 500 Mg Tab) 1,000 mg NG DAILY [facility] Last Admin: 08/03/18 10:39 Dose: 1,000 mg Aspirin (Aspirin Chewable) 81 mg GT DAILY [facility] Last Admin: 08/03/18 10:38 Dose: 81 mg Insulin Aspart (Novolog) 0 unit SC Q6 [facility]; Protocol Last Admin: 08/03/18 18:07 Dose: 4 units Insulin Glargine (Lantus) 15 unit SC Q12 [facility] Last Admin: 08/03/18 10:39 Dose: 15 u Lactobacillus Acidophilus (Bacid Acidophilus) 1 cap PO Q12H [facility] Last Admin: 08/03/18 08:28 Dose: 1 cap Methimazole (Tapazole) 20 mg PO Q8 [facility] Last Admin: 08/03/18 14:23 Dose: 20 mg Modafinil (Provigil) 100 mg PEG DAILY [facility] Last Admin: 08/03/18 10:39 Dose: 100 mg Multivitamins/Vitamin C (Multi-Delyn Liquid) 5 ml PO DAILY [facility] Last Admin: 08/03/18 10:44 Dose: 5 ml Pantoprazole Sodium (Protonix Susp) 40 mg PO DAILY [facility] Last Admin: 08/03/18 10:39 Dose: 40 mg Rosuvastatin Calcium (Crestor) 2.5 mg PO HS [facility] Last Admin: 08/02/18 21:18 Dose: 2.5 mg Vitamin A (Vitamin A & D Oint Ud Foilpak) 1 ea TOP BID [facility] Last Admin: 08/03/18 17:46 Dose: 1 ea - Labs Labs: 08/03/18 06:32 08/03/18 06:32 PT 17.7 SECONDS (9.7-12.2) H 07/28/18 06:19 INR 1.6 07/28/18 06:19 APTT 52 SECONDS (21-34) H 07/31/18 05:56
[2018-08-03] MEDS: Rosuvastatin Calcium 2.5 mg Tab PO SCH (21:21)
[2018-08-04] MEDS: (Novolog) Insulin Aspart, Recombinant 100 u/ml 10 ml vial SC SCH ×3 (06:00→18:00)
[2018-08-04 06:21] LABS: BASO # 0.1 K/uL (0.0-0.2); EOS # 0.7 K/uL (0.0-0.7); EOS % 10.1 % (0.0-4.0); HEMOGLOBIN 10.3 g/dL (11.0-16.0); LYMPH # 1.9 K/uL (1.0-4.3); LYMPH % 27.8 % (20.0-40.0); MEAN CELL VOLUME 89.4 fL (81.0-99.0); MEAN CORPUSCULAR HEMOGLOBIN 29.7 pg (27.0-31.0); MEAN CORPUSCULAR HGB CONC 33.2 g/dL (33.0-37.0); MEAN PLATELET VOLUME 8.6 fL (7.2-11.7); MONO # 0.7 K/uL (0.0-0.8); MONO % 10.4 % (0.0-10.0); NEUT # 3.4 K/uL (1.8-7.0); NEUT % 50.7 % (50.0-75.0); NRBC % 0.1 % (0.0-2.0); RBC 3.45 Mil/uL (3.80-5.20); RED CELL DISTRIBUTION WIDTH 14.8 % (11.5-14.5); WHITE BLOOD COUNT 6.7 K/uL (4.8-10.8)
[2018-08-04 06:58] LABS: ALB/GLOB RATIO 0.8 (1.0-2.1); ALBUMIN 3.3 g/dL (3.5-5.0); ALT/SGPT 70 U/L (9-52); AST/SGOT 91 U/L (14-36); BLOOD UREA NITROGEN 43 mg/dL (7-17); CALCIUM 9.2 mg/dl (8.6-10.4); GFR NON-AFRICAN AMERICAN > 60
[2018-08-04] MEDS: Lactobacillus Acidophilus 500 MU Cap PO SCH ×2 (09:00→20:11)
[2018-08-04] MEDS: Pantoprazole 40 mg Susp UD PO SCH (09:10)
[2018-08-04] MEDS: Vitamins A & D Oint UD Foilpak TOP SCH ×2 (09:11→17:58)
[2018-08-04] MEDS: Multiple Vitamins Oral Solution PO SCH (09:11)
[2018-08-04] MEDS: (Lantus) Insulin Glargine, Recombinant SC SCH ×2 (09:14→21:17)
--- NOTE | 2018-08-04 10:44 | CP.CCUPN ---
<Brayan Gonzalez - Last Filed: 08/04/18 10:42> CCU Subjective - Physician Review Events Since Last Encounter (Free Text): 08/04/18 10:42 No acute events overnight Subjective (Free Text): 08/04/18 10:42 PGY1 Critical Care Progress Note for Dr. Nesbitt Patient seen and evaluated this morning. Patient is alert and able to follow 1- step commands. Patient is sitting in bed today. Patient is currently with PEG, Tracheostomy, and PICC line. No bleeding. No acute issues. ROS could not be obtained due to clinical condition. Critical Care Time Spent (in minutes): 35 CCU Objective - Vital Signs / Intake & Output Vital Signs (Last 4 hours): Vital Signs Temp Pulse Resp BP Pulse Ox 08/04/18 09:00 86 14 119/70 100 08/04/18 08:00 97.7 F 89 11 L 111/66 100 08/04/18 07:00 90 18 118/66 100 Intake and Output (Last 8hrs): Intake & Output 08/03/18 08/04/18 08/04/18 22:59 06:59 14:59 Intake Total 550 250 150 Output Total 2 1 Balance 548 249 150 Intake: Tube Feeding 400 150 50 Other 150 100 100 Output: Urine/Stool Mix 2 1 Emesis 0 Other: # Voids Urine, Voided 0 # Bowel Movements 0 - Physical Exam Head: Positive for: Atraumatic, Normocephalic Pupils: Positive for: PERRL. Negative for: Sluggish, Pinpoint Extroacular Muscles: Positive for: EOMI. Negative for: Gaze Palsy Conjunctiva: Positive for: Normal. Negative for: Injected, Icteric Mouth: Positive for: Moist Mucous Membranes Nose (External): Positive for: Atraumatic. Negative for: Abrasion, Contusion, Laceration Nose (Internal): Positive for: No Active Bleeding. Negative for: Epistaxis Neck: Positive for: Normal Range of Motion, Trachea Midline. Negative for: JVD Respiratory/Chest: Positive for: Good Air Exchange, Rhonchi (mild ronchi in bilateral bases), Other (trach). Negative for: Wheezes, Rales Cardiovascular: Positive for: Normal S1, S2, Peripheal Pulses Present, Tachycardic. Negative for: Regular Rate and Rhythm Abdomen: Positive for: Normal Bowel Sounds. Negative for: Tenderness, Distention, Rebound, Guarding Upper Extremity: Positive for: Normal Inspection, NORMAL PULSES. Negative for: Cyanosis, Edema Lower Extremity: Positive for: Normal Inspection. Negative for: Edema, CALF TENDERNESS Neurological: Positive for: Other Skin: Positive for: Warm, Dry, Normal Color Psychiatric: Positive for: Alert - Medications Active Medications: Active Medications Generic Name Dose Route Start Last Admin Trade Name Freq PRN Reason Stop Dose Admin Acetaminophen 650 mg 07/28/18 13:39 08/03/18 23:49 Tylenol 325mg Tab PEG 650 mg Q6 PRN Administration Pain, moderate (4-7) Albuterol/Ipratropium 3 ml 07/28/18 16:34 07/28/18 20:12 Duoneb 3 Mg/0.5 Mg (3 Ml) Ud INH 3 ml RQ4 PRN Administration Shortness of Breath Apixaban 5 mg 07/31/18 18:00 08/04/18 09:10 Eliquis PO 5 mg BID MANOLO Administration Ascorbic Acid 1,000 mg 07/24/18 10:00 08/04/18 09:10 Vitamin C 500 Mg Tab NG 1,000 mg DAILY MANOLO Administration Aspirin 81 mg 07/17/18 10:00 08/04/18 09:10 Aspirin Chewable GT 81 mg DAILY MANOLO Administration Insulin Aspart 0 unit 07/11/18 08:28 08/04/18 06:00 Novolog SC Not Given Q6 [facility] Protocol Insulin Glargine 15 unit 08/02/18 22:00 08/04/18 09:14 Lantus SC 15 u Q12 MANOLO Administration Lactobacillus Acidophilus 1 cap 07/08/18 20:00 08/04/18 09:00 Bacid Acidophilus PO 1 cap Q12H MANOLO Administration Methimazole 20 mg 07/27/18 14:00 08/04/18 06:00 Tapazole PO 20 mg Q8 MANOLO Administration Modafinil 100 mg 08/02/18 10:00 08/04/18 09:11 Provigil PEG 100 mg DAILY MANOLO Administration Multivitamins/Vitamin C 5 ml 07/24/18 10:00 08/04/18 09:11 Multi-Delyn Liquid PO 5 ml DAILY MANOLO Administration Pantoprazole Sodium 40 mg 07/20/18 10:00 08/04/18 09:10 Protonix Susp PO 40 mg DAILY MANOLO Administration Rosuvastatin Calcium 2.5 mg 07/13/18 22:00 08/03/18 21:21 Crestor PO 2.5 mg HS MANOLO Administration Vitamin A 1 ea 07/28/18 18:00 08/04/18 09:11 Vitamin A & D Oint Ud Foilpak TOP 1 ea BID MANOLO Administration - Patient Studies Lab Studies: Lab Studies 08/04/18 08/04/18 08/04/18 Range/Units 06:14 06:14 05:35 WBC 6.7 (4.8-10.8) K/uL RBC 3.45 L (3.80-5.20) Mil/uL Hgb 10.3 L (11.0-16.0) g/dL Hct 30.9 L (34.0-47.0) % MCV 89.4 (81.0-99.0) fL MCH 29.7 (27.0-31.0) pg MCHC 33.2 (33.0-37.0) g/dL RDW 14.8 H (11.5-14.5) % Plt Count 306 (130-400) K/uL MPV 8.6 (7.2-11.7) fL Neut % (Auto) 50.7 (50.0-75.0) % Lymph % (Auto) 27.8 (20.0-40.0) % Thomas % (Auto) 10.4 H (0.0-10.0) % Eos % (Auto) 10.1 H (0.0-4.0) % Baso % (Auto) 1.0 (0.0-2.0) % Neut # (Auto) 3.4 (1.8-7.0) K/uL Lymph # (Auto) 1.9 (1.0-4.3) K/uL Thomas # (Auto) 0.7 (0.0-0.8) K/uL Eos # (Auto) 0.7 (0.0-0.7) K/uL Baso # (Auto) 0.1 (0.0-0.2) K/uL Sodium 143 (132-148) mmol/L Potassium 4.5 (3.6-5.2) mmol/L Chloride 110 H (98-107) mmol/L Carbon Dioxide 26 (22-30) mmol/L Anion Gap 11 (10-20) BUN 43 H (7-17) mg/dL Creatinine 0.9 (0.7-1.2) mg/dL Est GFR ( Amer) > 60 Est GFR (Non-Af Amer) > 60 POC Glucose (mg/dL) 123 H (65-110) mg/dL Random Glucose 111 H (65-105) mg/dL Calcium 9.2 (8.6-10.4) mg/dl Phosphorus 5.8 H (2.5-4.5) mg/dL Magnesium 2.6 H (1.6-2.3) mg/dL Total Bilirubin 0.7 (0.2-1.3) mg/dL AST 91 H D (14-36) U/L ALT 70 H D (9-52) U/L Alkaline Phosphatase 262 H (38-126) U/L Total Protein 7.3 (6.3-8.3) g/dL Albumin 3.3 L (3.5-5.0) g/dL Globulin 4.1 H (2.2-3.9) gm/dL Albumin/Globulin Ratio 0.8 L (1.0-2.1) 08/03/18 08/03/18 08/03/18 Range/Units 23:22 17:58 11:19 WBC (4.8-10.8) K/uL RBC (3.80-5.20) Mil/uL Hgb (11.0-16.0) g/dL Hct (34.0-47.0) % MCV (81.0-99.0) fL MCH (27.0-31.0) pg MCHC (33.0-37.0) g/dL RDW (11.5-14.5) % Plt Count (130-400) K/uL MPV (7.2-11.7) fL Neut % (Auto) (50.0-75.0) % Lymph % (Auto) (20.0-40.0) % Thomas % (Auto) (0.0-10.0) % Eos % (Auto) (0.0-4.0) % Baso % (Auto) (0.0-2.0) % Neut # (Auto) (1.8-7.0) K/uL Lymph # (Auto) (1.0-4.3) K/uL Thomas # (Auto) (0.0-0.8) K/uL Eos # (Auto) (0.0-0.7) K/uL Baso # (Auto) (0.0-0.2) K/uL Sodium (132-148) mmol/L Potassium (3.6-5.2) mmol/L Chloride (98-107) mmol/L Carbon Dioxide (22-30) mmol/L Anion Gap (10-20) BUN (7-17) mg/dL Creatinine (0.7-1.2) mg/dL Est GFR ( Amer) Est GFR (Non-Af Amer) POC Glucose (mg/dL) 192 H 203 H 247 H (65-110) mg/dL Random Glucose (65-105) mg/dL Calcium (8.6-10.4) mg/dl Phosphorus (2.5-4.5) mg/dL Magnesium (1.6-2.3) mg/dL Total Bilirubin (0.2-1.3) mg/dL AST (14-36) U/L ALT (9-52) U/L Alkaline Phosphatase (38-126) U/L Total Protein (6.3-8.3) g/dL Albumin (3.5-5.0) g/dL Globulin (2.2-3.9) gm/dL Albumin/Globulin Ratio (1.0-2.1) Laboratory Results - last 24 hr 08/03/18 08/03/18 08/03/18 11:19 17:58 23:22 WBC RBC Hgb Hct MCV MCH MCHC RDW Plt Count MPV Neut % (Auto) Lymph % (Auto) Thomas % (Auto) Eos % (Auto) Baso % (Auto) Neut # (Auto) Lymph # (Auto) Thomas # (Auto) Eos # (Auto) Baso # (Auto) Sodium Potassium Chloride Carbon Dioxide Anion Gap BUN Creatinine Est GFR ( Amer) Est GFR (Non-Af Amer) POC Glucose (mg/dL) 247 H 203 H 192 H Random Glucose Calcium Phosphorus Magnesium Total Bilirubin AST ALT Alkaline Phosphatase Total Protein Albumin Globulin Albumin/Globulin Ratio 08/04/18 08/04/18 08/04/18 05:35 06:14 06:14 WBC 6.7 RBC 3.45 L Hgb 10.3 L Hct 30.9 L MCV 89.4 MCH 29.7 MCHC 33.2 RDW 14.8 H Plt Count 306 MPV 8.6 Neut % (Auto) 50.7 Lymph % (Auto) 27.8 Thomas % (Auto) 10.4 H Eos % (Auto) 10.1 H Baso % (Auto) 1.0 Neut # (Auto) 3.4 Lymph # (Auto) 1.9 Thomas # (Auto) 0.7 Eos # (Auto) 0.7 Baso # (Auto) 0.1 Sodium 143 Potassium 4.5 Chloride 110 H Carbon Dioxide 26 Anion Gap 11 BUN 43 H Creatinine 0.9 Est GFR ( Amer) > 60 Est GFR (Non-Af Amer) > 60 POC Glucose (mg/dL) 123 H Random Glucose 111 H Calcium 9.2 Phosphorus 5.8 H Magnesium 2.6 H Total Bilirubin 0.7 AST 91 H D ALT 70 H D Alkaline Phosphatase 262 H Total Protein 7.3 Albumin 3.3 L Globulin 4.1 H Albumin/Globulin Ratio 0.8 L Fingerstick Blood Sugar Results: 192 Review of Systems - Review of Systems Systems not reviewed;Unavailable: Acuity of Condition Critical Care Progress Note - Nutrition Nutrition: Nutrition Category Date Time Status NPO Diet [DIET] Diets 07/25/18 Breakfast Active Assessment/Plan - Assessment and Plan (Free Text) Assessment: This is a 52 yo female with PMH of DM2 and hypercholesterolemia who presented to with cough, post-tussive emesis, and malaise x2-3 weeks. She was admitted to the ICU for respiratory failure and acute renal failure. Of note, patient was CODE BLUE on 07/10 (V-tach). Remains intubated after failing extubation, as patient vomited just hours after extubation. Currently with tracheostomy (performed by Dr. Melchor.) Patient is hemodynamically stable, and is status-post PEG placement with Dr. Murray and GI Fellow Dr. Amaya. Plan Neuro Anoxic brain injury - Hemodynamically stable - Continue Modafinil 100mg PO Daily Agitation (resolved) - Discontinued: valproic acid 500mg liquid BID Pulm Chronic Hypoxic Respiratory Failure secondary to pulmonary congestion, renal failure * Status-post trach * CXR shows congestion and R lower lobe infiltrate * Continue bronchodilators * C-PAP trials daily - today tolerated 4 hours C-PAP - Goal SaO2 > 92% and paO2 > 55 * FiO2 titrated down to 30% (for goal PO2/FiO2 ratio > 300) * CT angiogram obtained 07/26 to rule out PE -- Negative for PE. - Duonebs 2 ml INH RQ4 - Status-post tracheostomy 07/[address] Melchor CV Hypotension - Normotensive: 127/73 - Discontinued: Levophed - Discontinued: Midodrine - Cardiac arrest from unknown etiology - Cardiology consulted. Appreciate recs. - Repeat ECHO from shows left ventricular thrombus; - Doppler show LLE DVT, right cephalic vein thrombus - Discontinued: Heparin drip - Start Eliquis 5mg PO BID Daily - Continue daily aspirin 81 mg, crestor 2.5 mg PO HS - Discontinued propranolol 5mg PO TID CHADsVASc Score= 3 * Stroke risk 3.2% per year * 4.6% risk of stroke/TIA/systemic embolism - PICC line placed MSK - OOB as tolerated with assistance - Early Mobilization highly recommended - PT/OT - Discontinue central line (right subclavian) - PICC line order placed GI - Start: Vital 1.2 tube feeds Max Rate #35 - Protonix 40 mg IV daily - Dr. Murray Consulted: recommendations appreciated - Pelvic/ trasnvaginal ultrasound performed - Patient's states patient still has regular menstrual cycles monthly - Monitor H/H Renal - Acute renal failure resolving - Avoid nephrotoxic drugs Heme: - Anemia: Hgb=11.2; improved - No acute issues - Continue to monitor H/H Endo - ISS for coverage, q6h - Increased Lantus 10mg Q12 --> Lantus 15mg Q12 - Continue Methimazole 20mg PO Q8 - FSH LH and Prolactin Infectious Disease - Discontinued: Merrem 1 gm daily - Discontinued: vancomycin 1 gm daily - Negative cultures - ID following, appreciate all recs Dispo: Pending another PS/CPAP trial, tracheostomy placed 07/24 FEN: NPO, on Tube Feeds Access: Peripheral IVs, right subclavian TLC, ETT, OGT Consults: Palliative, Endo, Nephro, Cardio, Neuro, Cardio, GI Ppx: Protonix for GI, SCDs Code status: FULL Next of kin: Martina Isaacs () Prognosis: Guarded Patient seen, reviewed, and case discussed with attending, Dr. Laz Gonzalez PGY1 <Dian Nesbitt M - Last Filed: 08/04/18 12:52> CCU Objective - Vital Signs / Intake & Output Vital Signs (Last 4 hours): Vital Signs Pulse Resp BP Pulse Ox 08/04/18 09:00 86 14 119/70 100 Intake and Output (Last 8hrs): Intake & Output 08/03/18 08/04/18 08/04/18 22:59 06:59 14:59 Intake Total 550 250 150 Output Total 2 1 Balance 548 249 150 Intake: Tube Feeding 400 150 50 Other 150 100 100 Output: Urine/Stool Mix 2 1 Emesis 0 Other: # Voids Urine, Voided 0 # Bowel Movements 0 - Medications Active Medications: Active Medications Generic Name Dose Route Start Last Admin Trade Name Freq PRN Reason Stop Dose Admin Acetaminophen 650 mg 07/28/18 13:39 08/03/18 23:49 Tylenol 325mg Tab PEG 650 mg Q6 PRN Administration Pain, moderate (4-7) Albuterol/Ipratropium 3 ml 07/28/18 16:34 07/28/18 20:12 Duoneb 3 Mg/0.5 Mg (3 Ml) Ud INH 3 ml RQ4 PRN Administration Shortness of Breath Apixaban 5 mg 07/31/18 18:00 08/04/18 09:10 Eliquis PO 5 mg BID MANOLO Administration Ascorbic Acid 1,000 mg 07/24/18 10:00 08/04/18 09:10 Vitamin C 500 Mg Tab NG 1,000 mg DAILY MANOLO Administration Aspirin 81 mg 07/17/18 10:00 08/04/18 09:10 Aspirin Chewable GT 81 mg DAILY MANOLO Administration Insulin Aspart 0 unit 07/11/18 08:28 08/04/18 06:00 Novolog SC Not Given Q6 [facility] Protocol Insulin Glargine 15 unit 08/02/18 22:00 08/04/18 09:14 Lantus SC 15 u Q12 MANOLO Administration Lactobacillus Acidophilus 1 cap 07/08/18 20:00 08/04/18 09:00 Bacid Acidophilus PO 1 cap Q12H MANOLO Administration Methimazole 20 mg 07/27/18 14:00 08/04/18 06:00 Tapazole PO 20 mg Q8 MANOLO Administration Modafinil 100 mg 08/02/18 10:00 08/04/18 09:11 Provigil PEG 100 mg DAILY MANOLO Administration Multivitamins/Vitamin C 5 ml 07/24/18 10:00 08/04/18 09:11 Multi-Delyn Liquid PO 5 ml DAILY MANOLO Administration Pantoprazole Sodium 40 mg 07/20/18 10:00 08/04/18 09:10 Protonix Susp PO 40 mg DAILY MANOLO Administration Rosuvastatin Calcium 2.5 mg 07/13/18 22:00 08/03/18 21:21 Crestor PO 2.5 mg HS MANOLO Administration Vitamin A 1 ea 07/28/18 18:00 08/04/18 09:11 Vitamin A & D Oint Ud Foilpak TOP 1 ea BID MANOLO Administration - Patient Studies Lab Studies: Lab Studies 08/04/18 08/04/18 08/04/18 Range/Units 11:24 06:14 06:14 WBC 6.7 (4.8-10.8) K/uL RBC 3.45 L (3.80-5.20) Mil/uL Hgb 10.3 L (11.0-16.0) g/dL Hct 30.9 L (34.0-47.0) % MCV 89.4 (81.0-99.0) fL MCH 29.7 (27.0-31.0) pg MCHC 33.2 (33.0-37.0) g/dL RDW 14.8 H (11.5-14.5) % Plt Count 306 (130-400) K/uL MPV 8.6 (7.2-11.7) fL Neut % (Auto) 50.7 (50.0-75.0) % Lymph % (Auto) 27.8 (20.0-40.0) % Thomas % (Auto) 10.4 H (0.0-10.0) % Eos % (Auto) 10.1 H (0.0-4.0) % Baso % (Auto) 1.0 (0.0-2.0) % Neut # (Auto) 3.4 (1.8-7.0) K/uL Lymph # (Auto) 1.9 (1.0-4.3) K/uL Thomas # (Auto) 0.7 (0.0-0.8) K/uL Eos # (Auto) 0.7 (0.0-0.7) K/uL Baso # (Auto) 0.1 (0.0-0.2) K/uL Sodium 143 (132-148) mmol/L Potassium 4.5 (3.6-5.2) mmol/L Chloride 110 H (98-107) mmol/L Carbon Dioxide 26 (22-30) mmol/L Anion Gap 11 (10-20) BUN 43 H (7-17) mg/dL Creatinine 0.9 (0.7-1.2) mg/dL Est GFR ( Amer) > 60 Est GFR (Non-Af Amer) > 60 POC Glucose (mg/dL) 162 H (65-110) mg/dL Random Glucose 111 H (65-105) mg/dL Calcium 9.2 (8.6-10.4) mg/dl Phosphorus 5.8 H (2.5-4.5) mg/dL Magnesium 2.6 H (1.6-2.3) mg/dL Total Bilirubin 0.7 (0.2-1.3) mg/dL AST 91 H D (14-36) U/L ALT 70 H D (9-52) U/L Alkaline Phosphatase 262 H (38-126) U/L Total Protein 7.3 (6.3-8.3) g/dL Albumin 3.3 L (3.5-5.0) g/dL Globulin 4.1 H (2.2-3.9) gm/dL Albumin/Globulin Ratio 0.8 L (1.0-2.1) 08/04/18 08/03/18 08/03/18 Range/Units 05:35 23:22 17:58 WBC (4.8-10.8) K/uL RBC (3.80-5.20) Mil/uL Hgb (11.0-16.0) g/dL Hct (34.0-47.0) % MCV (81.0-99.0) fL MCH (27.0-31.0) pg MCHC (33.0-37.0) g/dL RDW (11.5-14.5) % Plt Count (130-400) K/uL MPV (7.2-11.7) fL Neut % (Auto) (50.0-75.0) % Lymph % (Auto) (20.0-40.0) % Thomas % (Auto) (0.0-10.0) % Eos % (Auto) (0.0-4.0) % Baso % (Auto) (0.0-2.0) % Neut # (Auto) (1.8-7.0) K/uL Lymph # (Auto) (1.0-4.3) K/uL Thomas # (Auto) (0.0-0.8) K/uL Eos # (Auto) (0.0-0.7) K/uL Baso # (Auto) (0.0-0.2) K/uL Sodium (132-148) mmol/L Potassium (3.6-5.2) mmol/L Chloride (98-107) mmol/L Carbon Dioxide (22-30) mmol/L Anion Gap (10-20) BUN (7-17) mg/dL Creatinine (0.7-1.2) mg/dL Est GFR ( Amer) Est GFR (Non-Af Amer) POC Glucose (mg/dL) 123 H 192 H 203 H (65-110) mg/dL Random Glucose (65-105) mg/dL Calcium (8.6-10.4) mg/dl Phosphorus (2.5-4.5) mg/dL Magnesium (1.6-2.3) mg/dL Total Bilirubin (0.2-1.3) mg/dL AST (14-36) U/L ALT (9-52) U/L Alkaline Phosphatase (38-126) U/L Total Protein (6.3-8.3) g/dL Albumin (3.5-5.0) g/dL Globulin (2.2-3.9) gm/dL Albumin/Globulin Ratio (1.0-2.1) 08/03/18 Range/Units 11:19 WBC (4.8-10.8) K/uL RBC (3.80-5.20) Mil/uL Hgb (11.0-16.0) g/dL Hct (34.0-47.0) % MCV (81.0-99.0) fL MCH (27.0-31.0) pg MCHC (33.0-37.0) g/dL RDW (11.5-14.5) % Plt Count (130-400) K/uL MPV (7.2-11.7) fL Neut % (Auto) (50.0-75.0) % Lymph % (Auto) (20.0-40.0) % Thomas % (Auto) (0.0-10.0) % Eos % (Auto) (0.0-4.0) % Baso % (Auto) (0.0-2.0) % Neut # (Auto) (1.8-7.0) K/uL Lymph # (Auto) (1.0-4.3) K/uL Thomas # (Auto) (0.0-0.8) K/uL Eos # (Auto) (0.0-0.7) K/uL Baso # (Auto) (0.0-0.2) K/uL Sodium (132-148) mmol/L Potassium (3.6-5.2) mmol/L Chloride (98-107) mmol/L Carbon Dioxide (22-30) mmol/L Anion Gap (10-20) BUN (7-17) mg/dL Creatinine (0.7-1.2) mg/dL Est GFR ( Amer) Est GFR (Non-Af Amer) POC Glucose (mg/dL) 247 H (65-110) mg/dL Random Glucose (65-105) mg/dL Calcium (8.6-10.4) mg/dl Phosphorus (2.5-4.5) mg/dL Magnesium (1.6-2.3) mg/dL Total Bilirubin (0.2-1.3) mg/dL AST (14-36) U/L ALT (9-52) U/L Alkaline Phosphatase (38-126) U/L Total Protein (6.3-8.3) g/dL Albumin (3.5-5.0) g/dL Globulin (2.2-3.9) gm/dL Albumin/Globulin Ratio (1.0-2.1) Laboratory Results - last 24 hr 08/03/18 08/03/18 08/03/18 11:19 17:58 23:22 WBC RBC Hgb Hct MCV MCH MCHC RDW Plt Count MPV Neut % (Auto) Lymph % (Auto) Thomas % (Auto) Eos % (Auto) Baso % (Auto) Neut # (Auto) Lymph # (Auto) Thomas # (Auto) Eos # (Auto) Baso # (Auto) Sodium Potassium Chloride Carbon Dioxide Anion Gap BUN Creatinine Est GFR ( Amer) Est GFR (Non-Af Amer) POC Glucose (mg/dL) 247 H 203 H 192 H Random Glucose Calcium Phosphorus Magnesium Total Bilirubin AST ALT Alkaline Phosphatase Total Protein Albumin Globulin Albumin/Globulin Ratio 08/04/18 08/04/18 08/04/18 05:35 06:14 06:14 WBC 6.7 RBC 3.45 L Hgb 10.3 L Hct 30.9 L MCV 89.4 MCH 29.7 MCHC 33.2 RDW 14.8 H Plt Count 306 MPV 8.6 Neut % (Auto) 50.7 Lymph % (Auto) 27.8 Thomas % (Auto) 10.4 H Eos % (Auto) 10.1 H Baso % (Auto) 1.0 Neut # (Auto) 3.4 Lymph # (Auto) 1.9 Thomas # (Auto) 0.7 Eos # (Auto) 0.7 Baso # (Auto) 0.1 Sodium 143 Potassium 4.5 Chloride 110 H Carbon Dioxide 26 Anion Gap 11 BUN 43 H Creatinine 0.9 Est GFR ( Amer) > 60 Est GFR (Non-Af Amer) > 60 POC Glucose (mg/dL) 123 H Random Glucose 111 H Calcium 9.2 Phosphorus 5.8 H Magnesium 2.6 H Total Bilirubin 0.7 AST 91 H D ALT 70 H D Alkaline Phosphatase 262 H Total Protein 7.3 Albumin 3.3 L Globulin 4.1 H Albumin/Globulin Ratio 0.8 L 08/04/18 11:24 WBC RBC Hgb Hct MCV MCH MCHC RDW Plt Count MPV Neut % (Auto) Lymph % (Auto) Thomas % (Auto) Eos % (Auto) Baso % (Auto) Neut # (Auto) Lymph # (Auto) Thomas # (Auto) Eos # (Auto) Baso # (Auto) Sodium Potassium Chloride Carbon Dioxide Anion Gap BUN Creatinine Est GFR ( Amer) Est GFR (Non-Af Amer) POC Glucose (mg/dL) 162 H Random Glucose Calcium Phosphorus Magnesium Total Bilirubin AST ALT Alkaline Phosphatase Total Protein Albumin Globulin Albumin/Globulin Ratio Critical Care Progress Note - Nutrition Nutrition: Nutrition Category Date Time Status NPO Diet [DIET] Diets 07/25/18 Breakfast Active Assessment/Plan - Assessment and Plan (Free Text) Plan: PAtient seen and examined at bedside with above resident. -CHornic respiratory failure -encaphalopathy -tolerating peg tube feeds -continue CPAP as patient tolerates - Date & Time Date: 08/04/18 Time: 12:52
--- NOTE | 2018-08-04 14:04 | CP.PCM.PN ---
Subjective - Date & Time of Evaluation Date of Evaluation: 08/04/18 Time of Evaluation: 13:45 - Subjective Subjective: Hospitalist Progress Note Patient was seen and examined at 1:45 PM 08/04/18 Goldie was again present at bedside and who spoke in Alexis to patient who was awake and following commands during exam and smiling at times Physical Therapy treatment noted CT Head 08/01/18: age related changes Chest X Ray 07/31/18: no evidence of infiltrate General: Trach on SIMV mode HEENT: NCA, Pupils are round and reactive to light, EOMI, NO cervical/supraclavicular/submandibular lymphadenopathy Cardio: NS1 and NS2, NO M/R/G Respiratory: Diffuse course breath sounds bilaterallly GI: BSx4, Soft, ND, NO HSM, NO guarding, NO rebound tenderness, PEG Tube insertion site without evidence of surrounding cellulitis Ext: Pulses are strong and equal, Capillary Refill is 2 seconds, NO edema noted Neuro: exam not possible at this time Skin: Blanchable erythema noted on the lower buttocks area. NO other ulceration noted on any of the ophelia prominences Assessment/plan 1) Septic Shock Pneumonia Urinary Tract Infection Assessment/Plan * Infectious Disease (Dr. Brock) on case-->help appreciated * Tmax: 101.7 F (07/19/18) * Afebrile since * Criteria: leukocytosis, tachycardia * Source: aspiration pneumonia and urinary tract infection * 07/07/18: Urine: E. Coli * 07/09/18: Urine: No growth * 07/07/18: Blood culture: no growth after 5 days X2 * 07/09/18 Blood culture: no growth after 5 days X2 * 07/14/18: blood cultures: no growth to date * 07/14/18: sputum culture: yeast species * 07/14/18: Urine culture: no growth * 07/20/18: Blood culture: no growth after 5 days X2 * 07/20/18: Urine culture: no growth * 07/21/18: No Salmonella, shigella, or campobacter * 07/23/18 Urine culture: no growth * MRSA not detected * Antibiotics * Rocephin 2gm IVPB Q12H (07/14/18 through 07/20/18) * Meropenem 1 gm IV Q8H (active since 07/20/18)-->spoke with ICU Physician Dr. Lozada 08/02/18 and as repeat Chest X Ray 07/31/18 does not show any infiltrates, NO need to restart * Vancomycin 1 gram IVPB Q24H (being held since 07/20/18)-->vancomycin level 7.7-->per id to d/c vancomycin 2) Acute Respiratory Failure Pulmonary Edema Bilateral Pleural Effusion and Consolidations Likely Secondary to Aspiration Pneumonia Assessment/Plan * Required reintubated after 2nd fail attempt; patient underwent tracheostomy 07/24/18 * off Solumedrol * Duonebs RQ4H PRN wheezing * MRSA screen: not detected * Sputum culture 07/09/18, 07/12/18, 07/14/18: yeast * Mycoplasma negative * Legionella was negative * Influenza negative * HIV negative * CT Chest 07/15/18: Moderate to large bilateral pleural effusion and associated consolidations, pathcy grround-glass infiltrates/edema noted within bilateral upper lobes * Chest xray (07/24/18): worsening infiltrates, satisfactory position of recently placed tracheostomy device. Satisfactory position of remaining support apparatus including venous access catheter and recently placed nasogastric tube * Rocephin 2gm IVPB Q12H (07/14/18 through 07/20/18) * Meropenem 1 gm IV Q8H (active since 07/20/18)-->will need renewal by ID * Vancomycin 1 gram IVPB Q24H (being held since 07/20/18) discontinued by ID * Bedside Thoracic U/S 07/17/18 did not reveal enough pleural effusion for T horacentesis and per IR on 07/28/18 nothing to drain * Lasix 20 mg IV Q12H was discontinued 08/03/18 * Provigil 100 mg PEG 1x/day * Procalcitonin downtrending to 0.75. 3) Ventricular Tachycardia NSTEMI Apical Thrombus LLE DVT Assessment/Plan * Code Blue 07/10: SVT==>VT required amiodarone, magnesium, one shock delivered * Code Blue 07/20: vtach s/p amiodarone, fluid, calcium gluconate, required compressions and shock * Cardiology Dr Francisco on case help appreciated * Echocardiogram (07/07/18): left ventricle systolic function is borderline, ejection fraction is 45-50%, no aortic regurgitation is present, mitral regurgitation is mild. Mild tricuspid regurgitation. mild pulmonary hypertension, mild pulmonic valvular regurgitation * Contrast Echo: Large apical hypokinesis a large 30 x 20 mm soft tissue apical sessile mass suggestive of thrombus overall fraction 40%. Obtain a HUBERT or/consider stress card myopathy if coronary disease is excluded further findings per report * Amiodarone discontinued * Monitor electrolytes * Eliquis 5 mg PO BID * Aspirin 81 mg PO 1x/day. Considering patient already on Eliquis and to reduce chance of bleeding, Plavix was discontinued 07/18/18. * Propranolol 5mg PO TID was discontinued 08/03/18 * Crestor 2.5 mg PO HS * Will need to f/u cardiology in regards to cath 4) Urinary Tract Infection Assessment/Plan * Infectious disease on board help appreciated * 07/07/18: Urine: E. Coli * 07/09/18: Urine: No growth * 07/14/18: Urine culture: No growth * Urine Culture 07/20/18: No growth 5) Diabetes-->chronic Assessment/Plan * HgBA1c: 7.8 * Hypoglycemic protocol * Lantus 15 units subcutaneous at bedtime Q12 6) Acute on Chronic Renal Failure Assessment/Plan * Nephrology (Dr. Hyde) on board--> help appreciated * Patient will likely not need dialysis * Renal function continues to improve 7) Hyperthyroidism? Low TSH, and Free T4 Thyroid Storm Assessment/Plan * Note Thyroid studies taken before amiodarone was given (please advised this is not amiodarone induced her levels were abnormal prior) * Patient does not have prior thyroid history * Endocrinology (Dr. 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 She will need outpatient FNA Bx of the complex Left Lobe cyst (please see full report) * Methimazole 20mg PO TID * Propranolol 5 mg PO TID was discontinued 08/03/18 * Monitor LFTs 8) Anemia Likely Secondary to Chronic Diseases Assessment/Plan * Iron normal, TIBC low, Iron Saturation normal, Ferritin normal * Stool occult blood negative * B12 normal * Folate Normal * Transfused 1 unit PRBC 07/22/18 9) Transminitis-->improving * Likely secondary to Sepsis and Amiodarone (which was discontinued) * Hepatitis serology negative * Slightly elevated from normal on 07/20/18 but could be secondary to [employer]/Code Blue 07/20/18 10) Vitamin D deficiency Assessment plan * 50,000 international units once a week for at least 8-12 weeks started on 07/11/18 11) Thrombocytopenia-->resolved Assessment plan * Sepsis, vs Methimazole? * Fibrinogen elevated * HIT and RUSTY both negative for HIT * Currently normalized 12) 13 mm Left Adrenal Nodule * As seen on CT Chest 07/16/18 * Will need outpatient follow up for cross sectional imaging for better characterization 13) Hypernatremia-->resolved * Free water 250 ml 3x/day via OGT * Na now normal 14) LLE DVT * Eliquis 5 mg PO BID * Acute thrombosis of the left common femoral and femoral veins with severe reduction of the venous return on 07/18/18 venous doppler 15) Prophylactic measure * Protonix 40mg PO BID * Lactobacillus 1 cap PO BID * MVI 1x/day * Vitamin C 1,000 NG 1x/day * Trach and Peg * Awaiting cardaic cath * SCD on Right and contraindicated on Left due to DVT * Peg feedings * PICC Line 07/31/18 * Off Precedex * Off Ativan * Note: speak to patient in alexis to assess neurologic status-->she does follow Disposition: Patient is awaiting cardiac cath in light of cardiac thrombus. Radha ent does not have insurance: please f/u with social/case management to start insurance process for potential LTAC/rehab. She will need significant rehab to regain muscle and strength. [place] D.O. Objective - Vital Signs/Intake and Output Vital Signs (last 24 hours): Temp Pulse Resp BP Pulse Ox 97.7 F 86 14 119/70 100 08/04/18 08:00 08/04/18 09:00 08/04/18 09:00 08/04/18 09:00 08/04/18 09:00 Intake and Output: 08/04/18 08/04/18 06:59 18:59 Intake Total 500 150 Output Total 2 Balance 498 150 - Medications Medications: Current Medications Acetaminophen (Tylenol 325mg Tab) 650 mg PEG Q6 PRN PRN Reason: Pain, moderate (4-7) Last Admin: 08/03/18 23:49 Dose: 650 mg Albuterol/Ipratropium (Duoneb 3 Mg/0.5 Mg (3 Ml) Ud) 3 ml INH RQ4 PRN PRN Reason: Shortness of Breath Last Admin: 07/28/18 20:12 Dose: 3 ml Apixaban (Eliquis) 5 mg PO BID [facility] Last Admin: 08/04/18 09:10 Dose: 5 mg Ascorbic Acid (Vitamin C 500 Mg Tab) 1,000 mg NG DAILY [facility] Last Admin: 08/04/18 09:10 Dose: 1,000 mg Aspirin (Aspirin Chewable) 81 mg GT DAILY [facility] Last Admin: 08/04/18 09:10 Dose: 81 mg Insulin Aspart (Novolog) 0 unit SC Q6 [facility]; Protocol Last Admin: 08/04/18 06:00 Dose: Not Given Insulin Glargine (Lantus) 15 unit SC Q12 [facility] Last Admin: 08/04/18 09:14 Dose: 15 u Lactobacillus Acidophilus (Bacid Acidophilus) 1 cap PO Q12H [facility] Last Admin: 08/04/18 09:00 Dose: 1 cap Methimazole (Tapazole) 20 mg PO Q8 [facility] Last Admin: 08/04/18 06:00 Dose: 20 mg Modafinil (Provigil) 100 mg PEG DAILY [facility] Last Admin: 08/04/18 09:11 Dose: 100 mg Multivitamins/Vitamin C (Multi-Delyn Liquid) 5 ml PO DAILY [facility] Last Admin: 08/04/18 09:11 Dose: 5 ml Pantoprazole Sodium (Protonix Susp) 40 mg PO DAILY [facility] Last Admin: 08/04/18 09:10 Dose: 40 mg Rosuvastatin Calcium (Crestor) 2.5 mg PO HS [facility] Last Admin: 08/03/18 21:21 Dose: 2.5 mg Vitamin A (Vitamin A & D Oint Ud Foilpak) 1 ea TOP BID [facility] Last Admin: 08/04/18 09:11 Dose: 1 ea - Labs Labs: 08/04/18 06:14 08/04/18 06:14 PT 17.7 SECONDS (9.7-12.2) H 07/28/18 06:19 INR 1.6 07/28/18 06:19 APTT 52 SECONDS (21-34) H 07/31/18 05:56
[2018-08-04] MEDS: Rosuvastatin Calcium 2.5 mg Tab PO SCH (21:19)
[2018-08-05] MEDS: (Novolog) Insulin Aspart, Recombinant 100 u/ml 10 ml vial SC SCH ×4 (00:37→17:55)
[2018-08-05 05:53] LABS: BASO # 0.1 K/uL (0.0-0.2); BASO % 1.5 % (0.0-2.0); EOS # 0.6 K/uL (0.0-0.7); EOS % 8.8 % (0.0-4.0); HEMOGLOBIN 9.5 g/dL (11.0-16.0); LYMPH # 1.6 K/uL (1.0-4.3); LYMPH % 22.8 % (20.0-40.0); MEAN CELL VOLUME 88.4 fL (81.0-99.0); MEAN CORPUSCULAR HEMOGLOBIN 29.3 pg (27.0-31.0); MEAN CORPUSCULAR HGB CONC 33.1 g/dL (33.0-37.0); MEAN PLATELET VOLUME 8.7 fL (7.2-11.7); MONO # 0.6 K/uL (0.0-0.8); MONO % 8.6 % (0.0-10.0); NEUT % 58.3 % (50.0-75.0); NRBC % 0.1 % (0.0-2.0); RBC 3.26 Mil/uL (3.80-5.20); RED CELL DISTRIBUTION WIDTH 14.8 % (11.5-14.5); WHITE BLOOD COUNT 6.8 K/uL (4.8-10.8)
[2018-08-05 06:29] LABS: ALB/GLOB RATIO 0.9 (1.0-2.1); ALBUMIN 3.1 g/dL (3.5-5.0); ALT/SGPT 83 U/L (9-52); AST/SGOT 61 U/L (14-36); BLOOD UREA NITROGEN 41 mg/dL (7-17); CALCIUM 9.3 mg/dl (8.6-10.4); GFR NON-AFRICAN AMERICAN > 60
[2018-08-05] MEDS: Albuterol-Ipratrop 3 mg / 0.5 (3 ml) UD INH PRN ×2 (07:29→19:51)
[2018-08-05] MEDS: Lactobacillus Acidophilus 500 MU Cap PO SCH ×2 (09:00→19:59)
[2018-08-05] MEDS: Multiple Vitamins Oral Solution PO SCH (09:08)
[2018-08-05] MEDS: Pantoprazole 40 mg Susp UD PO SCH (09:09)
[2018-08-05] MEDS: (Lantus) Insulin Glargine, Recombinant SC SCH ×2 (09:09→21:34)
[2018-08-05] MEDS: Vitamins A & D Oint UD Foilpak TOP SCH ×2 (09:10→17:41)
--- NOTE | 2018-08-05 12:49 | CP.PCM.PN ---
Subjective - Date & Time of Evaluation Date of Evaluation: 08/05/18 Time of Evaluation: 12:15 - Subjective Subjective: Hospitalist Progress Note Patient was seen and examined at 12:15 PM 08/05/18 Goldie was again present at bedside Patient was asleep but arousable and following commands in Alexis and at times smiling Continue PT Continue attempts to wean patient from Trach General: Trach on SIMV mode HEENT: NCA, Pupils are round and reactive to light, EOMI, NO cervical/supraclavicular/submandibular lymphadenopathy Cardio: NS1 and NS2, NO M/R/G Respiratory: Diffuse course breath sounds bilaterallly GI: BSx4, Soft, ND, NO HSM, NO guarding, NO rebound tenderness, PEG Tube insertion site without evidence of surrounding cellulitis Ext: Pulses are strong and equal, Capillary Refill is 2 seconds, NO edema noted Neuro: exam not possible at this time Skin: Blanchable erythema noted on the lower buttocks area. NO other ulceration noted on any of the ophelia prominences Assessment/plan 1) Septic Shock Pneumonia Urinary Tract Infection Assessment/Plan * Infectious Disease (Dr. Brock) on case-->help appreciated * Tmax: 101.7 F (07/19/18) * Afebrile since * Criteria: leukocytosis, tachycardia * Source: aspiration pneumonia and urinary tract infection * 07/07/18: Urine: E. Coli * 07/09/18: Urine: No growth * 07/07/18: Blood culture: no growth after 5 days X2 * 07/09/18 Blood culture: no growth after 5 days X2 * 07/14/18: blood cultures: no growth to date * 07/14/18: sputum culture: yeast species * 07/14/18: Urine culture: no growth * 07/20/18: Blood culture: no growth after 5 days X2 * 07/20/18: Urine culture: no growth * 07/21/18: No Salmonella, shigella, or campobacter * 07/23/18 Urine culture: no growth * MRSA not detected * Antibiotics * Rocephin 2gm IVPB Q12H (07/14/18 through 07/20/18) * Meropenem 1 gm IV Q8H (active since 07/20/18)-->spoke with ICU Physician Dr. Lozada 08/02/18 and as repeat Chest X Ray 07/31/18 does not show any infiltrates, NO need to restart * Vancomycin 1 gram IVPB Q24H (being held since 07/20/18)-->vancomycin level 7.7-->per id to d/c vancomycin 2) Acute Respiratory Failure Pulmonary Edema Bilateral Pleural Effusion and Consolidations Likely Secondary to Aspiration Pneumonia Assessment/Plan * Required reintubated after 2nd fail attempt; patient underwent tracheostomy 07/24/18 * off Solumedrol * Duonebs RQ4H PRN wheezing * MRSA screen: not detected * Sputum culture 07/09/18, 07/12/18, 07/14/18: yeast * Mycoplasma negative * Legionella was negative * Influenza negative * HIV negative * CT Chest 07/15/18: Moderate to large bilateral pleural effusion and associated consolidations, pathcy grround-glass infiltrates/edema noted within bilateral upper lobes * Chest xray (07/24/18): worsening infiltrates, satisfactory position of recently placed tracheostomy device. Satisfactory position of remaining support apparatus including venous access catheter and recently placed nasogastric tube * Rocephin 2gm IVPB Q12H (07/14/18 through 07/20/18) * Meropenem 1 gm IV Q8H (active since 07/20/18)-->will need renewal by ID * Vancomycin 1 gram IVPB Q24H (being held since 07/20/18) discontinued by ID * Bedside Thoracic U/S 07/17/18 did not reveal enough pleural effusion for Thoracentesis and per IR on 07/28/18 nothing to drain * Lasix 20 mg IV Q12H was discontinued 08/03/18 * Provigil 100 mg PEG 1x/day * Procalcitonin downtrending to 0.75. 3) Ventricular Tachycardia NSTEMI Apical Thrombus LLE DVT Assessment/Plan * Code Blue 07/10: SVT==>VT required amiodarone, magnesium, one shock delivered * Code Blue 07/20: vtach s/p amiodarone, fluid, calcium gluconate, required compressions and shock * Cardiology Dr Francisco on case help appreciated * Echocardiogram (07/07/18): left ventricle systolic function is borderline, ejection fraction is 45-50%, no aortic regurgitation is present, mitral regur gitation is mild. Mild tricuspid regurgitation. mild pulmonary hypertension, mild pulmonic valvular regurgitation * Contrast Echo: Large apical hypokinesis a large 30 x 20 mm soft tissue apical sessile mass suggestive of thrombus overall fraction 40%. Obtain a HUBERT or/consider stress card myopathy if coronary disease is excluded further findings per report * Amiodarone discontinued * Monitor electrolytes * Eliquis 5 mg PO BID * Aspirin 81 mg PO 1x/day. Considering patient already on Eliquis and to reduce chance of bleeding, Plavix was discontinued 07/18/18. * Propranolol 5mg PO TID was discontinued 08/03/18 * Crestor 2.5 mg PO HS * Will need to f/u cardiology in regards to cath 4) Urinary Tract Infection Assessment/Plan * Infectious disease on board help appreciated * 07/07/18: Urine: E. Coli * 07/09/18: Urine: No growth * 07/14/18: Urine culture: No growth * Urine Culture 07/20/18: No growth 5) Diabetes-->chronic Assessment/Plan * HgBA1c: 7.8 * Hypoglycemic protocol * Lantus 15 units subcutaneous at bedtime Q12 6) Acute on Chronic Renal Failure Assessment/Plan * Nephrology (Dr. Hyde) on board--> help appreciated * Patient will likely not need dialysis * Renal function continues to improve 7) Hyperthyroidism? Low TSH, and Free T4 Thyroid Storm Assessment/Plan * Note Thyroid studies taken before amiodarone was given (please advised this is not amiodarone induced her levels were abnormal prior) * Patient does not have prior thyroid history * Endocrinology (Dr. 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 She will need outpatient FNA Bx of the complex Left Lobe cyst (please see full report) * Methimazole 20mg PO TID * Propranolol 5 mg PO TID was discontinued 08/03/18 * Monitor LFTs 8) Anemia Likely Secondary to Chronic Diseases Assessment/Plan * Iron normal, TIBC low, Iron Saturation normal, Ferritin normal * Stool occult blood negative * B12 normal * Folate Normal * Transfused 1 unit PRBC 07/22/18 9) Transminitis-->improving * Likely secondary to Sepsis and Amiodarone (which was discontinued) * Hepatitis serology negative * Slightly elevated from normal on 07/20/18 but could be secondary to [employer]/Code Blue 07/20/18 10) Vitamin D deficiency Assessment plan * 50,000 international units once a week for at least 8-12 weeks started on 07/11/18 11) Thrombocytopenia-->resolved Assessment plan * Sepsis, vs Methimazole? * Fibrinogen elevated * HIT and RUSTY both negative for HIT * Currently normalized 12) 13 mm Left Adrenal Nodule * As seen on CT Chest 07/16/18 * Will need outpatient follow up for cross sectional imaging for better characterization 13) Hypernatremia-->resolved * Free water 250 ml 3x/day via OGT * Na now normal 14) LLE DVT * Eliquis 5 mg PO BID * Acute thrombosis of the left common femoral and femoral veins with severe reduction of the venous return on 07/18/18 venous doppler 15) Prophylactic measure * Protonix 40mg PO BID * Lactobacillus 1 cap PO BID * MVI 1x/day * Vitamin C 1,000 NG 1x/day * Trach and Peg * Awaiting cardaic cath * SCD on Right and contraindicated on Left due to DVT * Peg feedings * PICC Line 07/31/18 * Off Precedex * Off Ativan * Note: speak to patient in alexis to assess neurologic status-->she does follow Disposition: Patient is awaiting cardiac cath in light of cardiac thrombus. Patient does not have insurance: please f/u with social/case management to start insurance process for potential LTAC/rehab. She will need significant rehab to regain muscle and strength. Continue attempts to wean off Trach [place] D.O. Objective - Vital Signs/Intake and Output Vital Signs (last 24 hours): Temp Pulse Resp BP Pulse Ox 97.7 F 85 11 L 121/72 100 08/05/18 08:00 08/05/18 11:00 08/05/18 11:00 08/05/18 11:00 08/05/18 11:00 Intake and Output: 08/05/18 08/05/18 06:59 18:59 Intake Total 650 250 Output Total 1 Balance 649 250 - Medications Medications: Current Medications Acetaminophen (Tylenol 325mg Tab) 650 mg PEG Q6 PRN PRN Reason: Pain, moderate (4-7) Last Admin: 08/03/18 23:49 Dose: 650 mg Albuterol/Ipratropium (Duoneb 3 Mg/0.5 Mg (3 Ml) Ud) 3 ml INH RQ4 PRN PRN Reason: Shortness of Breath Last Admin: 08/05/18 07:29 Dose: 3 ml Apixaban (Eliquis) 5 mg PO BID [facility] Last Admin: 08/04/18 17:58 Dose: 5 mg Ascorbic Acid (Vitamin C 500 Mg Tab) 1,000 mg NG DAILY [facility] Last Admin: 08/05/18 09:09 Dose: 1,000 mg Aspirin (Aspirin Chewable) 81 mg GT DAILY [facility] Last Admin: 08/05/18 09:08 Dose: 81 mg Insulin Aspart (Novolog) 0 unit SC Q6 [facility]; Protocol Last Admin: 08/05/18 11:42 Dose: Not Given Insulin Glargine (Lantus) 15 unit SC Q12 [facility] Last Admin: 08/05/18 09:09 Dose: 15 u Lactobacillus Acidophilus (Bacid Acidophilus) 1 cap PO Q12H [facility] Last Admin: 08/05/18 09:00 Dose: 1 cap Methimazole (Tapazole) 20 mg PO Q8 [facility] Last Admin: 08/05/18 05:20 Dose: 20 mg Modafinil (Provigil) 100 mg PEG DAILY [facility] Last Admin: 08/05/18 09:09 Dose: 100 mg Multivitamins/Vitamin C (Multi-Delyn Liquid) 5 ml PO DAILY [facility] Last Admin: 08/05/18 09:08 Dose: 5 ml Pantoprazole Sodium (Protonix Susp) 40 mg PO DAILY [facility] Last Admin: 08/05/18 09:09 Dose: 40 mg Rosuvastatin Calcium (Crestor) 2.5 mg PO HS [facility] Last Admin: 08/04/18 21:19 Dose: 2.5 mg Vitamin A (Vitamin A & D Oint Ud Foilpak) 1 ea TOP BID [facility] Last Admin: 08/05/18 09:10 Dose: 1 ea - Labs Labs: 08/05/18 05:48 08/05/18 05:48 PT 17.7 SECONDS (9.7-12.2) H 07/28/18 06:19 INR 1.6 07/28/18 06:19 APTT 52 SECONDS (21-34) H 07/31/18 05:56
[2018-08-05] MEDS: Rosuvastatin Calcium 2.5 mg Tab PO SCH (21:36)
[2018-08-05] MEDS: Bacitracin Ointment 30 GM TUBE TOP SCH (22:48)
[2018-08-06] MEDS: (Novolog) Insulin Aspart, Recombinant 100 u/ml 10 ml vial SC SCH ×4 (05:59→18:11)
[2018-08-06 06:21] LABS: BASO # 0.1 K/uL (0.0-0.2); BASO % 1.3 % (0.0-2.0); EOS # 0.5 K/uL (0.0-0.7); EOS % 7.1 % (0.0-4.0); HEMOGLOBIN 9.5 g/dL (11.0-16.0); LYMPH # 1.8 K/uL (1.0-4.3); LYMPH % 25.6 % (20.0-40.0); MEAN CELL VOLUME 89.3 fL (81.0-99.0); MEAN CORPUSCULAR HEMOGLOBIN 29.2 pg (27.0-31.0); MEAN CORPUSCULAR HGB CONC 32.7 g/dL (33.0-37.0); MEAN PLATELET VOLUME 8.7 fL (7.2-11.7); MONO # 0.6 K/uL (0.0-0.8); NRBC % 0.2 % (0.0-2.0); RBC 3.24 Mil/uL (3.80-5.20); WHITE BLOOD COUNT 7.1 K/uL (4.8-10.8)
[2018-08-06 06:52] LABS: BLOOD UREA NITROGEN 41 mg/dL (7-17); GFR NON-AFRICAN AMERICAN 58
[2018-08-06 06:53] LABS: ALB/GLOB RATIO 0.9 (1.0-2.1); ALBUMIN 3.4 g/dL (3.5-5.0); ALT/SGPT 100 U/L (9-52); AST/SGOT 75 U/L (14-36); CALCIUM 9.4 mg/dl (8.6-10.4)
[2018-08-06] MEDS ORDERED: Valproate 750 MG in Sodium Chloride 0.9% 100 ML IVPB ONE (08:30)
[2018-08-06] MEDS: Pantoprazole 40 mg Susp UD PO SCH (09:05)
[2018-08-06] MEDS: (Lantus) Insulin Glargine, Recombinant SC SCH ×2 (09:05→21:01)
[2018-08-06] MEDS: Lactobacillus Acidophilus 500 MU Cap PO SCH ×2 (09:07→20:55)
[2018-08-06] MEDS: Bacitracin Ointment 30 GM TUBE TOP SCH ×2 (09:08→17:13)
[2018-08-06] MEDS: Vitamins A & D Oint UD Foilpak TOP SCH ×2 (09:36→17:12)
--- NOTE | 2018-08-06 10:40 | CP.PCM.PN ---
Subjective - Date & Time of Evaluation Date of Evaluation: 08/05/18 Time of Evaluation: 10:39 - Subjective Subjective: PAtient seen and examined at bedside. Patient awake, akert, tolerating CPAP Objective - Vital Signs/Intake and Output Vital Signs (last 24 hours): Temp Pulse Resp BP Pulse Ox 97.3 F L 108 H 20 144/39 L 98 08/06/18 08:00 08/06/18 08:01 08/06/18 08:01 08/06/18 08:00 08/06/18 08:00 Intake and Output: 08/06/18 08/06/18 06:59 18:59 Intake Total 100 Output Total Balance 100 - Medications Medications: Current Medications Acetaminophen (Tylenol 325mg Tab) 650 mg PEG Q6 PRN PRN Reason: Pain, moderate (4-7) Last Admin: 08/05/18 21:35 Dose: 650 mg Albuterol/Ipratropium (Duoneb 3 Mg/0.5 Mg (3 Ml) Ud) 3 ml INH RQ4 PRN PRN Reason: Shortness of Breath Last Admin: 08/05/18 19:51 Dose: 3 ml Apixaban (Eliquis) 5 mg PO BID [facility] Last Admin: 08/06/18 09:05 Dose: 5 mg Ascorbic Acid (Vitamin C 500 Mg Tab) 1,000 mg NG DAILY [facility] Last Admin: 08/06/18 09:05 Dose: 1,000 mg Aspirin (Aspirin Chewable) 81 mg GT DAILY [facility] Last Admin: 08/06/18 09:05 Dose: 81 mg Bacitracin (Bacitracin) 1 gm TOP BID [facility] Last Admin: 08/06/18 09:08 Dose: 1 appl Insulin Aspart (Novolog) 0 unit SC Q6 [facility]; Protocol Last Admin: 08/06/18 05:59 Dose: Not Given Insulin Glargine (Lantus) 15 unit SC Q12 [facility] Last Admin: 08/06/18 09:05 Dose: 10 u Lactobacillus Acidophilus (Bacid Acidophilus) 1 cap PO Q12H [facility] Last Admin: 08/06/18 09:07 Dose: 1 cap Methimazole (Tapazole) 20 mg PO Q8 [facility] Last Admin: 08/06/18 05:15 Dose: 20 mg Modafinil (Provigil) 100 mg PEG DAILY [facility] Last Admin: 08/06/18 09:07 Dose: Not Given Multivitamins (Hexavitamin) 1 tab PEG DAILY [facility] Pantoprazole Sodium (Protonix Susp) 40 mg PO DAILY [facility] Last Admin: 08/06/18 09:05 Dose: 40 mg Vitamin A (Vitamin A & D Oint Ud Foilpak) 1 ea TOP BID [facility] Last Admin: 08/06/18 09:36 Dose: 1 ea - Labs Labs: 08/06/18 06:18 08/06/18 06:18 PT 17.7 SECONDS (9.7-12.2) H 07/28/18 06:19 INR 1.6 07/28/18 06:19 APTT 52 SECONDS (21-34) H 07/31/18 05:56 - Head Exam Head Exam: ATRAUMATIC, NORMAL INSPECTION, NORMOCEPHALIC - Respiratory Exam Respiratory Exam: Clear to Ausculation Bilateral, NORMAL BREATHING PATTERN - Cardiovascular Exam Cardiovascular Exam: +S1, +S2 - GI/Abdominal Exam GI & Abdominal Exam: Normal Bowel Sounds - Extremities Exam Extremities Exam: Normal Inspection - Neurological Exam Neurological Exam: Altered Assessment and Plan - Assessment and Plan (Free Text) Assessment: 52 yo female with PMH of DM2 and hypercholesterolemia who presented to with cough, post-tussive emesis, and malaise x2-3 weeks. She was admitted to the ICU for respiratory failure and acute renal failure. Of note, patient was CODE BLUE on 07/10 (V-tach). Remains intubated after failing extubation, as patient vomited just hours after extubation. Currently with tracheostomy (performed by Dr. Melchor.) Patient is hemodynamically stable, and is status-post PEG placement with Dr. Murray and GI Fellow Dr. Amaya. Plan Neuro Anoxic brain injury -continue current management Pulm Chronic Hypoxic Respiratory Failure secondary to pulmonary congestion, renal failure -s/p trach, continue CPAP trials daily CV -hemodynamically stable MSK -continue PT/OT GI -contineu tube feeds -continue dvt/pud ppx Patient remains hemodynamically stable, only in ICU for CPAP trials daily
--- NOTE | 2018-08-06 10:46 | CP.PCM.PN ---
Subjective - Date & Time of Evaluation Date of Evaluation: 08/06/18 Time of Evaluation: 10:45 - Subjective Subjective: Patient more agitated today, pulling on trach Objective - Vital Signs/Intake and Output Vital Signs (last 24 hours): Temp Pulse Resp BP Pulse Ox 97.3 F L 99 H 15 96/53 L 98 08/06/18 08:00 08/06/18 10:00 08/06/18 10:00 08/06/18 10:00 08/06/18 10:00 Intake and Output: 08/06/18 08/06/18 06:59 18:59 Intake Total 300 Output Total Balance 300 - Medications Medications: Current Medications Acetaminophen (Tylenol 325mg Tab) 650 mg PEG Q6 PRN PRN Reason: Pain, moderate (4-7) Last Admin: 08/05/18 21:35 Dose: 650 mg Albuterol/Ipratropium (Duoneb 3 Mg/0.5 Mg (3 Ml) Ud) 3 ml INH RQ4 PRN PRN Reason: Shortness of Breath Last Admin: 08/05/18 19:51 Dose: 3 ml Apixaban (Eliquis) 5 mg PO BID [facility] Last Admin: 08/06/18 09:05 Dose: 5 mg Ascorbic Acid (Vitamin C 500 Mg Tab) 1,000 mg NG DAILY [facility] Last Admin: 08/06/18 09:05 Dose: 1,000 mg Aspirin (Aspirin Chewable) 81 mg GT DAILY [facility] Last Admin: 08/06/18 09:05 Dose: 81 mg Bacitracin (Bacitracin) 1 gm TOP BID [facility] Last Admin: 08/06/18 09:08 Dose: 1 appl Insulin Aspart (Novolog) 0 unit SC Q6 [facility]; Protocol Last Admin: 08/06/18 05:59 Dose: Not Given Insulin Glargine (Lantus) 15 unit SC Q12 [facility] Last Admin: 08/06/18 09:05 Dose: 10 u Lactobacillus Acidophilus (Bacid Acidophilus) 1 cap PO Q12H [facility] Last Admin: 08/06/18 09:07 Dose: 1 cap Methimazole (Tapazole) 20 mg PO Q8 [facility] Last Admin: 08/06/18 05:15 Dose: 20 mg Modafinil (Provigil) 100 mg PEG DAILY [facility] Last Admin: 08/06/18 09:07 Dose: Not Given Multivitamins (Hexavitamin) 1 tab PEG DAILY [facility] Pantoprazole Sodium (Protonix Susp) 40 mg PO DAILY [facility] Last Admin: 08/06/18 09:05 Dose: 40 mg Vitamin A (Vitamin A & D Oint Ud Foilpak) 1 ea TOP BID [facility] Last Admin: 08/06/18 09:36 Dose: 1 ea - Labs Labs: 08/06/18 06:18 08/06/18 06:18 PT 17.7 SECONDS (9.7-12.2) H 07/28/18 06:19 INR 1.6 07/28/18 06:19 APTT 52 SECONDS (21-34) H 07/31/18 05:56 - Head Exam Head Exam: NORMAL INSPECTION - Eye Exam Eye Exam: EOMI Pupil Exam: PERRL - Respiratory Exam Respiratory Exam: Clear to Ausculation Bilateral, NORMAL BREATHING PATTERN. absent: Accessory Muscle Use, Prolonged Expiratory Phase - Cardiovascular Exam Cardiovascular Exam: REGULAR RHYTHM, +S1, +S2 - GI/Abdominal Exam GI & Abdominal Exam: Normal Bowel Sounds - Extremities Exam Extremities Exam: Normal Inspection - Neurological Exam Neurological Exam: Altered - Skin Skin Exam: Normal Color Assessment and Plan - Assessment and Plan (Free Text) Assessment: Anoxic brain injury -continue current management, prn valproic acid PRn haldol Pulm Chronic Hypoxic Respiratory Failure secondary to pulmonary congestion, renal failure -s/p trach, continue CPAP trials daily CV -hemodynamically stable MSK -continue PT/OT GI -contineu tube feeds -continue dvt/pud ppx Patient remains hemodynamically stable, only in ICU for CPAP trials daily
[2018-08-06] MEDS: Multiple Vitamins Tab PEG SCH (11:00)
--- NOTE | 2018-08-06 17:06 | CP.PCM.PN ---
Subjective - Date & Time of Evaluation Date of Evaluation: 08/06/18 Time of Evaluation: 08:00 - Subjective Subjective: Hospitalist Progress Note Patient was seen and examined at 8:00 M 08/06/18 Goldie was again present at bedside Was informed by ICU Nurse Neris that patient had episodes of agitation during the night During my exam she appeared to be restless but upon speaking with her [place]jar[place]/Alexis and arrival of her , she appeared to be less so ICU Team to continue CPAP trials with Trach Continue PT General: Trach on SIMV mode HEENT: NCA, Pupils are round and reactive to light, EOMI, NO cervical/supraclavicular/submandibular lymphadenopathy Cardio: NS1 and NS2, NO M/R/G Respiratory: Diffuse course breath sounds bilaterallly GI: BSx4, Soft, ND, NO HSM, NO guarding, NO rebound tenderness, PEG Tube insertion site without evidence of surrounding cellulitis Ext: Pulses are strong and equal, Capillary Refill is 2 seconds, NO edema noted Neuro: exam not possible at this time Skin: Blanchable erythema noted on the lower buttocks area. NO other ulceration noted on any of the ophelia prominences Assessment/plan 1) Septic Shock Pneumonia Urinary Tract Infection Assessment/Plan * Infectious Disease (Dr. Brock) on case-->help appreciated * Tmax: 101.7 F (07/19/18) * Afebrile since * Criteria: leukocytosis, tachycardia * Source: aspiration pneumonia and urinary tract infection * 07/07/18: Urine: E. Coli * 07/09/18: Urine: No growth * 07/07/18: Blood culture: no growth after 5 days X2 * 07/09/18 Blood culture: no growth after 5 days X2 * 07/14/18: blood cultures: no growth to date * 07/14/18: sputum culture: yeast species * 07/14/18: Urine culture: no growth * 07/20/18: Blood culture: no growth after 5 days X2 * 07/20/18: Urine culture: no growth * 07/21/18: No Salmonella, shigella, or campobacter * 07/23/18 Urine culture: no growth * MRSA not detected * Antibiotics * Rocephin 2gm IVPB Q12H (07/14/18 through 07/20/18) * Meropenem 1 gm IV Q8H (active since 07/20/18)-->spoke with ICU Physician Dr. Lozada 08/02/18 and as repeat Chest X Ray 07/31/18 does not show any infiltrates, NO need to restart * Vancomycin 1 gram IVPB Q24H (being held since 07/20/18)-->vancomycin level 7.7-->per id to d/c vancomycin 2) Acute Respiratory Failure Pulmonary Edema Bilateral Pleural Effusion and Consolidations Likely Secondary to Aspiration Pneumonia Assessment/Plan * Required reintubated after 2nd fail attempt; patient underwent tracheostomy 07/24/18 * off Solumedrol * Duonebs RQ4H PRN wheezing * MRSA screen: not detected * Sputum culture 07/09/18, 07/12/18, 07/14/18: yeast * Mycoplasma negative * Legionella was negative * Influenza negative * HIV negative * CT Chest 07/15/18: Moderate to large bilateral pleural effusion and associated consolidations, pathcy grround-glass infiltrates/edema noted within bilateral upper lobes * Chest xray (07/24/18): worsening infiltrates, satisfactory position of recently placed tracheostomy device. Satisfactory position of remaining support apparatus including venous access catheter and recently placed nasogastric tube * Rocephin 2gm IVPB Q12H (07/14/18 through 07/20/18) * Meropenem 1 gm IV Q8H (active since 07/20/18)-->will need renewal by ID * Vancomycin 1 gram IVPB Q24H (being held since 07/20/18) discontinued by ID * Bedside Thoracic U/S 07/17/18 did not reveal enough pleural effusion for Thoracentesis and per IR on 07/28/18 nothing to drain * Lasix 20 mg IV Q12H was discontinued 08/03/18 * Provigil 100 mg PEG 1x/day * Procalcitonin downtrending to 0.75. 3) Ventricular Tachycardia NSTEMI Apical Thrombus LLE DVT Assessment/Plan * Code Blue 07/10: SVT==>VT required amiodarone, magnesium, one shock delivered * Code Blue 07/20: vtach s/p amiodarone, fluid, calcium gluconate, required compressions and shock * Cardiology Dr Francisco on case help appreciated * Echocardiogram (07/07/18): left ventricle systolic function is borderline, ejection fraction is 45-50%, no aortic regurgitation is present, mitral regurgitation is mild. Mild tricuspid regurgitation. mild pulmonary hypertension, mild pulmonic valvular regurgitation * Contrast Echo: Large apical hypokinesis a large 30 x 20 mm soft tissue apical sessile mass suggestive of thrombus overall fraction 40%. Obtain a HUBERT or/consider stress card myopathy if coronary disease is excluded further findings per report * Amiodarone discontinued * Monitor electrolytes * Eliquis 5 mg PO BID * Aspirin 81 mg PO 1x/day. Considering patient already on Eliquis and to reduce chance of bleeding, Plavix was discontinued 07/18/18. * Propranolol 5mg PO TID was discontinued 08/03/18 * Crestor 2.5 mg PO HS * Will need to f/u cardiology in regards to cath 4) Urinary Tract Infection Assessment/Plan * Infectious disease on board help appreciated * 07/07/18: Urine: E. Coli * 07/09/18: Urine: No growth * 07/14/18: Urine culture: No growth * Urine Culture 07/20/18: No growth 5) Diabetes-->chronic Assessment/Plan * HgBA1c: 7.8 * Hypoglycemic protocol * Lantus 15 units subcutaneous at bedtime Q12 6) Acute on Chronic Renal Failure Assessment/Plan * Nephrology (Dr. Hyde) on board--> help appreciated * Patient will likely not need dialysis * Renal function continues to improve 7) Hyperthyroidism? Low TSH, and Free T4 Thyroid Storm Assessment/Plan * Note Thyroid studies taken before amiodarone was given (please advised this is not amiodarone induced her levels were abnormal prior) * Patient does not have prior thyroid history * Endocrinology (Dr. 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 She will need outpatient FNA Bx of the complex Left Lobe cyst (please see full report) * Methimazole 20mg PO TID * Propranolol 5 mg PO TID was discontinued 08/03/18 * Monitor LFTs 8) Anemia Likely Secondary to Chronic Diseases Assessment/Plan * Iron normal, TIBC low, Iron Saturation normal, Ferritin normal * Stool occult blood negative * B12 normal * Folate Normal * Transfused 1 unit PRBC 07/22/18 9) Transminitis-->improving * Likely secondary to Sepsis and Amiodarone (which was discontinued) * Hepatitis serology negative * Slightly elevated from normal on 07/20/18 but could be secondary to [employer]ING [employer]/Code Blue 07/20/18 10) Vitamin D deficiency Assessment plan * 50,000 international units once a week for at least 8-12 weeks started on 07/11/18 11) Thrombocytopenia-->resolved Assessment plan * Sepsis, vs Methimazole? * Fibrinogen elevated * HIT and RUSTY both negative for HIT * Currently normalized 12) 13 mm Left Adrenal Nodule * As seen on CT Chest 07/16/18 * Will need outpatient follow up for cross sectional imaging for better characterization 13) Hypernatremia-->resolved * Free water 250 ml 3x/day via OGT * Na now normal 14) LLE DVT * Eliquis 5 mg PO BID * Acute thrombosis of the left common femoral and femoral veins with severe reduction of the venous return on 07/18/18 venous doppler 15) Prophylactic measure * Protonix 40mg PO BID * Lactobacillus 1 cap PO BID * MVI 1x/day * Vitamin C 1,000 NG 1x/day * Trach and Peg * Awaiting cardaic cath * SCD on Right and contraindicated on Left due to DVT * Peg feedings * PICC Line 07/31/18 * Off Precedex * Off Ativan * Note: speak to patient in alexis to assess neurologic status-->she does follow Disposition: Patient is awaiting cardiac cath in light of cardiac thrombus. Patient does not have insurance: please f/u with social/case management to start insurance process for potential LTAC/rehab. She will need significant rehab to regain muscle and strength. Continue attempts to wean off Trach [place] [facility] Objective - Vital Signs/Intake and Output Vital Signs (last 24 hours): Temp Pulse Resp BP Pulse Ox 98.4 F 89 15 93/56 L 99 08/06/18 16:00 08/06/18 17:00 08/06/18 17:00 08/06/18 17:00 08/06/18 17:00 Intake and Output: 08/06/18 08/06/18 06:59 18:59 Intake Total 650 Output Total Balance 650 - Medications Medications: Current Medications Acetaminophen (Tylenol 325mg Tab) 650 mg PEG Q6 PRN PRN Reason: Pain, moderate (4-7) Last Admin: 08/05/18 21:35 Dose: 650 mg Albuterol/Ipratropium (Duoneb 3 Mg/0.5 Mg (3 Ml) Ud) 3 ml INH RQ4 PRN PRN Reason: Shortness of Breath Last Admin: 08/05/18 19:51 Dose: 3 ml Apixaban (Eliquis) 5 mg PO BID [facility] Last Admin: 08/06/18 09:05 Dose: 5 mg Ascorbic Acid (Vitamin C 500 Mg Tab) 1,000 mg NG DAILY [facility] Last Admin: 08/06/18 09:05 Dose: 1,000 mg Aspirin (Aspirin Chewable) 81 mg GT DAILY [facility] Last Admin: 08/06/18 09:05 Dose: 81 mg Bacitracin (Bacitracin) 1 gm TOP BID [facility] Last Admin: 08/06/18 09:08 Dose: 1 appl Insulin Aspart (Novolog) 0 unit SC Q6 [facility]; Protocol Last Admin: 08/06/18 12:06 Dose: 2 units Insulin Glargine (Lantus) 15 unit SC Q12 [facility] Last Admin: 08/06/18 09:05 Dose: 10 u Lactobacillus Acidophilus (Bacid Acidophilus) 1 cap PO Q12H [facility] Last Admin: 08/06/18 09:07 Dose: 1 cap Methimazole (Tapazole) 20 mg PO Q8 [facility] Last Admin: 08/06/18 13:08 Dose: 20 mg Modafinil (Provigil) 100 mg PEG DAILY [facility] Last Admin: 08/06/18 09:07 Dose: Not Given Multivitamins (Hexavitamin) 1 tab PEG DAILY [facility] Last Admin: 08/06/18 11:00 Dose: 1 tab Pantoprazole Sodium (Protonix Susp) 40 mg PO DAILY [facility] Last Admin: 08/06/18 09:05 Dose: 40 mg Vitamin A (Vitamin A & D Oint Ud Foilpak) 1 ea TOP BID [facility] Last Admin: 08/06/18 09:36 Dose: 1 ea - Labs Labs: 08/06/18 06:18 08/06/18 06:18 PT 17.7 SECONDS (9.7-12.2) H 07/28/18 06:19 INR 1.6 07/28/18 06:19 APTT 52 SECONDS (21-34) H 07/31/18 05:56
[2018-08-06] MEDS: Albuterol-Ipratrop 3 mg / 0.5 (3 ml) UD INH PRN (19:45)
[2018-08-07] MEDS: (Novolog) Insulin Aspart, Recombinant 100 u/ml 10 ml vial SC SCH ×5 (00:28→23:39)
[2018-08-07 06:39] LABS: BASO # 0.1 K/uL (0.0-0.2); EOS # 0.3 K/uL (0.0-0.7); EOS % 3.7 % (0.0-4.0); HEMOGLOBIN 8.9 g/dL (11.0-16.0); LYMPH # 1.4 K/uL (1.0-4.3); MEAN CELL VOLUME 88.2 fL (81.0-99.0); MEAN CORPUSCULAR HEMOGLOBIN 29.9 pg (27.0-31.0); MEAN CORPUSCULAR HGB CONC 33.9 g/dL (33.0-37.0); MONO # 0.7 K/uL (0.0-0.8); MONO % 8.3 % (0.0-10.0); NEUT # 5.9 K/uL (1.8-7.0); RBC 2.96 Mil/uL (3.80-5.20); RED CELL DISTRIBUTION WIDTH 14.8 % (11.5-14.5); WHITE BLOOD COUNT 8.5 K/uL (4.8-10.8)
[2018-08-07 06:59] LABS: ALB/GLOB RATIO 0.8 (1.0-2.1); ALBUMIN 3.1 g/dL (3.5-5.0); ALT/SGPT 72 U/L (9-52); AST/SGOT 37 U/L (14-36); BLOOD UREA NITROGEN 41 mg/dL (7-17); CALCIUM 9.4 mg/dl (8.6-10.4); GFR NON-AFRICAN AMERICAN 58
[2018-08-07] MEDS: Vitamins A & D Oint UD Foilpak TOP SCH ×2 (09:00→17:00)
[2018-08-07] MEDS: Pantoprazole 40 mg Susp UD PO SCH (09:00)
[2018-08-07] MEDS: Lactobacillus Acidophilus 500 MU Cap PO SCH ×2 (09:00→20:30)
[2018-08-07] MEDS: Multiple Vitamins Tab PEG SCH (09:00)
[2018-08-07] MEDS: Bacitracin Ointment 30 GM TUBE TOP SCH ×2 (09:02→17:00)
[2018-08-07] MEDS: (Lantus) Insulin Glargine, Recombinant SC SCH ×2 (09:17→22:10)
--- NOTE | 2018-08-07 13:43 | CP.CCUPN ---
<Brayan Gonzalez - Last Filed: 08/07/18 16:32> CCU Subjective - Physician Review Events Since Last Encounter (Free Text): 08/07/18 13:42 No acute events overnight Subjective (Free Text): 08/07/18 13:41 PGY1 Critical Care Progress Note for Dr. Carrillo Patient seen and evaluated this morning. at bedside. Patient is alert and able to follow 1-step commands. Patient is sitting up in chair today. Patient is currently with PEG, Tracheostomy, and PICC line. No bleeding. No acute issues. ROS could not be obtained due to clinical condition. Critical Care Time Spent (in minutes): 35 CCU Objective - Vital Signs / Intake & Output Vital Signs (Last 4 hours): Vital Signs Pulse Resp BP Pulse Ox 08/07/18 13:01 101 H 21 148/79 100 08/07/18 10:00 95 H 16 130/74 100 Intake and Output (Last 8hrs): Intake & Output 08/06/18 08/07/18 08/07/18 22:59 06:59 14:59 Intake Total 700 460 450 Balance 700 460 450 Weight 100 lb 6.4 oz Intake: Tube Feeding 400 400 350 Other 300 60 100 Other: # Voids Urine, Voided 0 0 0 # Bowel Movements 0 0 0 - Physical Exam Head: Positive for: Atraumatic, Normocephalic Pupils: Positive for: PERRL. Negative for: Sluggish, Pinpoint Extroacular Muscles: Positive for: EOMI. Negative for: Gaze Palsy Conjunctiva: Positive for: Normal. Negative for: Injected, Icteric Mouth: Positive for: Moist Mucous Membranes Nose (External): Positive for: Atraumatic. Negative for: Abrasion, Contusion, Laceration Nose (Internal): Positive for: No Active Bleeding. Negative for: Epistaxis Neck: Positive for: Normal Range of Motion, Trachea Midline. Negative for: JVD Respiratory/Chest: Positive for: Good Air Exchange, Rhonchi (mild ronchi in bilateral bases), Other (trach). Negative for: Wheezes, Rales Cardiovascular: Positive for: Normal S1, S2, Peripheal Pulses Present, Tachycardic. Negative for: Regular Rate and Rhythm Abdomen: Positive for: Normal Bowel Sounds. Negative for: Tenderness, Distention, Rebound, Guarding Upper Extremity: Positive for: Normal Inspection, NORMAL PULSES. Negative for: Cyanosis, Edema Lower Extremity: Positive for: Normal Inspection. Negative for: Edema, CALF TENDERNESS Neurological: Positive for: Other Skin: Positive for: Warm, Dry, Normal Color Psychiatric: Positive for: Alert - Medications Active Medications: Active Medications Generic Name Dose Route Start Last Admin Trade Name Freq PRN Reason Stop Dose Admin Acetaminophen 650 mg 07/28/18 13:39 08/05/18 21:35 Tylenol 325mg Tab PEG 650 mg Q6 PRN Administration Pain, moderate (4-7) Albuterol/Ipratropium 3 ml 07/28/18 16:34 08/06/18 19:45 Duoneb 3 Mg/0.5 Mg (3 Ml) Ud INH 3 ml RQ4 PRN Administration Shortness of Breath Apixaban 5 mg 07/31/18 18:00 08/07/18 09:00 Eliquis PO 5 mg BID MANOLO Administration Ascorbic Acid 1,000 mg 07/24/18 10:00 08/07/18 09:01 Vitamin C 500 Mg Tab NG 1,000 mg DAILY MANOLO Administration Aspirin 81 mg 07/17/18 10:00 08/07/18 09:00 Aspirin Chewable GT 81 mg DAILY MANOLO Administration Bacitracin 1 gm 08/05/18 22:00 08/07/18 09:02 Bacitracin TOP 1 appl BID MANOLO Administration Insulin Aspart 0 unit 07/11/18 08:28 08/07/18 06:35 Novolog SC 2 units Q6 MANOLO Administration Protocol Insulin Glargine 15 unit 08/02/18 22:00 08/07/18 09:17 Lantus SC 10 u Q12 MANOLO Administration Lactobacillus Acidophilus 1 cap 07/08/18 20:00 08/07/18 09:00 Bacid Acidophilus PO 1 cap Q12H MANOLO Administration Methimazole 20 mg 07/27/18 14:00 08/07/18 06:36 Tapazole PO 20 mg Q8 MANOLO Administration Modafinil 100 mg 08/02/18 10:00 08/07/18 09:17 Provigil PEG Not Given DAILY MANOLO Multivitamins 1 tab 08/06/18 10:00 08/07/18 09:00 Hexavitamin PEG 1 tab DAILY MANOLO Administration Pantoprazole Sodium 40 mg 07/20/18 10:00 08/07/18 09:00 Protonix Susp PO 40 mg DAILY MANOLO Administration Vitamin A 1 ea 07/28/18 18:00 08/07/18 09:00 Vitamin A & D Oint Ud Foilpak TOP 1 ea BID MANOLO Administration - Patient Studies Lab Studies: Lab Studies 08/07/18 08/07/18 08/07/18 Range/Units 06:27 06:26 06:24 WBC 8.5 (4.8-10.8) K/uL RBC 2.96 L (3.80-5.20) Mil/uL Hgb 8.9 L (11.0-16.0) g/dL Hct 26.1 L (34.0-47.0) % MCV 88.2 (81.0-99.0) fL MCH 29.9 (27.0-31.0) pg MCHC 33.9 (33.0-37.0) g/dL RDW 14.8 H (11.5-14.5) % Plt Count 301 (130-400) K/uL MPV 9.0 (7.2-11.7) fL Neut % (Auto) 70.0 (50.0-75.0) % Lymph % (Auto) 17.0 L (20.0-40.0) % Bullock % (Auto) 8.3 (0.0-10.0) % Eos % (Auto) 3.7 (0.0-4.0) % Baso % (Auto) 1.0 (0.0-2.0) % Neut # (Auto) 5.9 (1.8-7.0) K/uL Lymph # (Auto) 1.4 (1.0-4.3) K/uL Bullock # (Auto) 0.7 (0.0-0.8) K/uL Eos # (Auto) 0.3 (0.0-0.7) K/uL Baso # (Auto) 0.1 (0.0-0.2) K/uL Sodium 142 (132-148) mmol/L Potassium 4.3 (3.6-5.2) mmol/L Chloride 109 H (98-107) mmol/L Carbon Dioxide 25 (22-30) mmol/L Anion Gap 12 (10-20) BUN 41 H (7-17) mg/dL Creatinine 1.0 (0.7-1.2) mg/dL Est GFR ( Amer) > 60 Est GFR (Non-Af Amer) 58 POC Glucose (mg/dL) 186 H (65-110) mg/dL Random Glucose 162 H (65-105) mg/dL Calcium 9.4 (8.6-10.4) mg/dl Phosphorus 5.0 H (2.5-4.5) mg/dL Magnesium 2.6 H (1.6-2.3) mg/dL Total Bilirubin 0.7 (0.2-1.3) mg/dL AST 37 H D (14-36) U/L ALT 72 H D (9-52) U/L Alkaline Phosphatase 258 H (38-126) U/L Total Protein 7.1 (6.3-8.3) g/dL Albumin 3.1 L (3.5-5.0) g/dL Globulin 4.0 H (2.2-3.9) gm/dL Albumin/Globulin Ratio 0.8 L (1.0-2.1) 08/06/18 08/06/18 08/06/18 Range/Units 23:41 17:28 11:59 WBC (4.8-10.8) K/uL RBC (3.80-5.20) Mil/uL Hgb (11.0-16.0) g/dL Hct (34.0-47.0) % MCV (81.0-99.0) fL MCH (27.0-31.0) pg MCHC (33.0-37.0) g/dL RDW (11.5-14.5) % Plt Count (130-400) K/uL MPV (7.2-11.7) fL Neut % (Auto) (50.0-75.0) % Lymph % (Auto) (20.0-40.0) % Bullock % (Auto) (0.0-10.0) % Eos % (Auto) (0.0-4.0) % Baso % (Auto) (0.0-2.0) % Neut # (Auto) (1.8-7.0) K/uL Lymph # (Auto) (1.0-4.3) K/uL Bullock # (Auto) (0.0-0.8) K/uL Eos # (Auto) (0.0-0.7) K/uL Baso # (Auto) (0.0-0.2) K/uL Sodium (132-148) mmol/L Potassium (3.6-5.2) mmol/L Chloride (98-107) mmol/L Carbon Dioxide (22-30) mmol/L Anion Gap (10-20) BUN (7-17) mg/dL Creatinine (0.7-1.2) mg/dL Est GFR ( Amer) Est GFR (Non-Af Amer) POC Glucose (mg/dL) 224 H 188 H 190 H (65-110) mg/dL Random Glucose (65-105) mg/dL Calcium (8.6-10.4) mg/dl Phosphorus (2.5-4.5) mg/dL Magnesium (1.6-2.3) mg/dL Total Bilirubin (0.2-1.3) mg/dL AST (14-36) U/L ALT (9-52) U/L Alkaline Phosphatase (38-126) U/L Total Protein (6.3-8.3) g/dL Albumin (3.5-5.0) g/dL Globulin (2.2-3.9) gm/dL Albumin/Globulin Ratio (1.0-2.1) Laboratory Results - last 24 hr 08/06/18 08/06/18 08/06/18 11:59 17:28 23:41 WBC RBC Hgb Hct MCV MCH MCHC RDW Plt Count MPV Neut % (Auto) Lymph % (Auto) Bullock % (Auto) Eos % (Auto) Baso % (Auto) Neut # (Auto) Lymph # (Auto) Bullock # (Auto) Eos # (Auto) Baso # (Auto) Sodium Potassium Chloride Carbon Dioxide Anion Gap BUN Creatinine Est GFR ( Amer) Est GFR (Non-Af Amer) POC Glucose (mg/dL) 190 H 188 H 224 H Random Glucose Calcium Phosphorus Magnesium Total Bilirubin AST ALT Alkaline Phosphatase Total Protein Albumin Globulin Albumin/Globulin Ratio 08/07/18 08/07/18 08/07/18 06:24 06:26 06:27 WBC 8.5 RBC 2.96 L Hgb 8.9 L Hct 26.1 L MCV 88.2 MCH 29.9 MCHC 33.9 RDW 14.8 H Plt Count 301 MPV 9.0 Neut % (Auto) 70.0 Lymph % (Auto) 17.0 L Bullock % (Auto) 8.3 Eos % (Auto) 3.7 Baso % (Auto) 1.0 Neut # (Auto) 5.9 Lymph # (Auto) 1.4 Bullock # (Auto) 0.7 Eos # (Auto) 0.3 Baso # (Auto) 0.1 Sodium 142 Potassium 4.3 Chloride 109 H Carbon Dioxide 25 Anion Gap 12 BUN 41 H Creatinine 1.0 Est GFR ( Amer) > 60 Est GFR (Non-Af Amer) 58 POC Glucose (mg/dL) 186 H Random Glucose 162 H Calcium 9.4 Phosphorus 5.0 H Magnesium 2.6 H Total Bilirubin 0.7 AST 37 H D ALT 72 H D Alkaline Phosphatase 258 H Total Protein 7.1 Albumin 3.1 L Globulin 4.0 H Albumin/Globulin Ratio 0.8 L Fingerstick Blood Sugar Results: 186 Review of Systems - Review of Systems Systems not reviewed;Unavailable: Acuity of Condition Critical Care Progress Note - Nutrition Nutrition: Nutrition Category Date Time Status NPO Diet [DIET] Diets 07/25/18 Breakfast Active Assessment/Plan - Assessment and Plan (Free Text) Assessment: This is a 52 yo female with PMH of DM2 and hypercholesterolemia who presented to with cough, post-tussive emesis, and malaise x2-3 weeks. She was admitted to the ICU for respiratory failure and acute renal failure. Of note, patient was CODE BLUE on 07/10 (V-tach). Remains intubated after failing extubation, as patient vomited just hours after extubation. Currently with tracheostomy (performed by Dr. Melchor.) Patient is hemodynamically stable, and is status-post PEG placement with Dr. Murray and GI Fellow Dr. Amaya. Tracheostomy collar placed today; patient tolerated well. Plan Neuro Anoxic brain injury - Hemodynamically stable - Continue Modafinil 100mg PO Daily Agitation (resolved) - Discontinued: valproic acid 500mg liquid BID Pulm Chronic Hypoxic Respiratory Failure secondary to pulmonary congestion, renal failure * Status-post trach * CXR shows congestion and R lower lobe infiltrate * Continue bronchodilators * C-PAP trials daily - today tolerated 4 hours C-PAP - Goal SaO2 > 92% and paO2 > 55 * FiO2 titrated down to 30% (for goal PO2/FiO2 ratio > 300) * CT angiogram obtained 07/26 to rule out PE -- Negative for PE. - Duonebs 2 ml INH RQ4 - Status-post tracheostomy 07/[address] Melchor CV Hypotension - Normotensive: 127/73 - Discontinued: Levophed - Discontinued: Midodrine - Cardiac arrest from unknown etiology - Cardiology consulted. Appreciate recs. - Repeat ECHO from shows left ventricular thrombus; - Doppler show LLE DVT, right cephalic vein thrombus - Discontinued: Heparin drip - Continue Eliquis 5mg PO BID Daily - Continue daily aspirin 81 mg, crestor 2.5 mg PO HS - Discontinued propranolol 5mg PO TID CHADsVASc Score= 3 * Stroke risk 3.2% per year * 4.6% risk of stroke/TIA/systemic embolism - PICC line placed MSK - OOB as tolerated with assistance - Early Mobilization highly recommended - PT/OT - Discontinue central line (right subclavian) - PICC line order placed GI - Continue Tube Feedings: Vital 1.2 tube feeds Max Rate #35 - Protonix 40 mg IV daily - Dr. Murray Consulted: recommendations appreciated - Pelvic/ trasnvaginal ultrasound performed - Patient's states patient still has regular menstrual cycles monthly - Monitor H/H Renal - Acute renal failure resolving - Avoid nephrotoxic drugs Heme: - Anemia: Hgb=11.2; improved - No acute issues - Continue to monitor H/H Endo - ISS for coverage, q6h - Increased Lantus 10mg Q12 --> Lantus 15mg Q12 - Continue Methimazole 20mg PO Q8 - FSH LH and Prolactin Infectious Disease - Discontinued: Merrem 1 gm daily - Discontinued: vancomycin 1 gm daily - Negative cultures - ID following, appreciate all recs Dispo: Pending tracheostomy collar today, tracheostomy placed 07/24 FEN: NPO, on Tube Feeds Access: Peripheral IVs, right subclavian TLC, ETT, OGT Consults: Palliative, Endo, Nephro, Cardio, Neuro, Cardio, GI Ppx: Protonix for GI, SCDs Code status: FULL Next of kin: Martina Isaacs () Prognosis: Guarded Patient seen, reviewed, and case discussed with attending, Dr. Lorena Gonzalez PGY1 <Thang Carrillo - Last Filed: 08/07/18 19:33> CCU Objective - Vital Signs / Intake & Output Vital Signs (Last 4 hours): Vital Signs Temp Pulse Resp BP Pulse Ox 08/07/18 19:00 118 H 17 111/68 96 08/07/18 18:28 110 H 16 100 08/07/18 18:00 114 H 17 106/71 97 08/07/18 17:29 113 H 15 100 08/07/18 17:00 109 H 16 105/59 L 98 08/07/18 16:00 97.4 F L 92 H 35 H 133/70 100 Intake and Output (Last 8hrs): Intake & Output 08/07/18 08/07/18 08/07/18 06:59 14:59 22:59 Intake Total 460 500 300 Output Total 100 Balance 460 500 200 Weight 100 lb 6.4 oz Intake: Tube Feeding 400 400 200 Other 60 100 100 Output: Urine 100 Urine, Voided 100 Other: # Voids Urine, Voided 0 0 # Bowel Movements 0 0 2 - Medications Active Medications: Active Medications Generic Name Dose Route Start Last Admin Trade Name Freq PRN Reason Stop Dose Admin Acetaminophen 650 mg 07/28/18 13:39 08/05/18 21:35 Tylenol 325mg Tab PEG 650 mg Q6 PRN Administration Pain, moderate (4-7) Albuterol/Ipratropium 3 ml 07/28/18 16:34 08/06/18 19:45 Duoneb 3 Mg/0.5 Mg (3 Ml) Ud INH 3 ml RQ4 PRN Administration Shortness of Breath Apixaban 5 mg 07/31/18 18:00 08/07/18 17:01 Eliquis PO 5 mg BID MANOLO Administration Ascorbic Acid 1,000 mg 07/24/18 10:00 08/07/18 09:01 Vitamin C 500 Mg Tab NG 1,000 mg DAILY MANOLO Administration Aspirin 81 mg 07/17/18 10:00 08/07/18 09:00 Aspirin Chewable GT 81 mg DAILY MANOLO Administration Bacitracin 1 gm 08/05/18 22:00 08/07/18 17:00 Bacitracin TOP 1 appl BID MANOLO Administration Insulin Aspart 0 unit 07/11/18 08:28 08/07/18 17:58 Novolog SC 4 units Q6 MANOLO Administration Protocol Insulin Glargine 15 unit 08/02/18 22:00 08/07/18 09:17 Lantus SC 10 u Q12 MANOLO Administration Lactobacillus Acidophilus 1 cap 07/08/18 20:00 08/07/18 09:00 Bacid Acidophilus PO 1 cap Q12H MANOLO Administration Methimazole 20 mg 07/27/18 14:00 08/07/18 14:00 Tapazole PO 20 mg Q8 MANOLO Administration Modafinil 100 mg 08/02/18 10:00 08/07/18 09:17 Provigil PEG Not Given DAILY MANOLO Multivitamins 1 tab 08/06/18 10:00 08/07/18 09:00 Hexavitamin PEG 1 tab DAILY MANOLO Administration Pantoprazole Sodium 40 mg 07/20/18 10:00 08/07/18 09:00 Protonix Susp PO 40 mg DAILY MANOLO Administration Vitamin A 1 ea 07/28/18 18:00 08/07/18 17:00 Vitamin A & D Oint Ud Foilpak TOP 1 ea BID MANOLO Administration - Patient Studies Lab Studies: Lab Studies 08/07/18 08/07/18 08/07/18 Range/Units 17:33 11:16 06:27 WBC (4.8-10.8) K/uL RBC (3.80-5.20) Mil/uL Hgb (11.0-16.0) g/dL Hct (34.0-47.0) % MCV (81.0-99.0) fL MCH (27.0-31.0) pg MCHC (33.0-37.0) g/dL RDW (11.5-14.5) % Plt Count (130-400) K/uL MPV (7.2-11.7) fL Neut % (Auto) (50.0-75.0) % Lymph % (Auto) (20.0-40.0) % Bullock % (Auto) (0.0-10.0) % Eos % (Auto) (0.0-4.0) % Baso % (Auto) (0.0-2.0) % Neut # (Auto) (1.8-7.0) K/uL Lymph # (Auto) (1.0-4.3) K/uL Bullock # (Auto) (0.0-0.8) K/uL Eos # (Auto) (0.0-0.7) K/uL Baso # (Auto) (0.0-0.2) K/uL Sodium 142 (132-148) mmol/L Potassium 4.3 (3.6-5.2) mmol/L Chloride 109 H (98-107) mmol/L Carbon Dioxide 25 (22-30) mmol/L Anion Gap 12 (10-20) BUN 41 H (7-17) mg/dL Creatinine 1.0 (0.7-1.2) mg/dL Est GFR ( Amer) > 60 Est GFR (Non-Af Amer) 58 POC Glucose (mg/dL) 223 H 174 H (65-110) mg/dL Random Glucose 162 H (65-105) mg/dL Calcium 9.4 (8.6-10.4) mg/dl Phosphorus 5.0 H (2.5-4.5) mg/dL Magnesium 2.6 H (1.6-2.3) mg/dL Total Bilirubin 0.7 (0.2-1.3) mg/dL AST 37 H D (14-36) U/L ALT 72 H D (9-52) U/L Alkaline Phosphatase 258 H (38-126) U/L Total Protein 7.1 (6.3-8.3) g/dL Albumin 3.1 L (3.5-5.0) g/dL Globulin 4.0 H (2.2-3.9) gm/dL Albumin/Globulin Ratio 0.8 L (1.0-2.1) 08/07/18 08/07/18 08/06/18 Range/Units 06:26 06:24 23:41 WBC 8.5 (4.8-10.8) K/uL RBC 2.96 L (3.80-5.20) Mil/uL Hgb 8.9 L (11.0-16.0) g/dL Hct 26.1 L (34.0-47.0) % MCV 88.2 (81.0-99.0) fL MCH 29.9 (27.0-31.0) pg MCHC 33.9 (33.0-37.0) g/dL RDW 14.8 H (11.5-14.5) % Plt Count 301 (130-400) K/uL MPV 9.0 (7.2-11.7) fL Neut % (Auto) 70.0 (50.0-75.0) % Lymph % (Auto) 17.0 L (20.0-40.0) % Bullock % (Auto) 8.3 (0.0-10.0) % Eos % (Auto) 3.7 (0.0-4.0) % Baso % (Auto) 1.0 (0.0-2.0) % Neut # (Auto) 5.9 (1.8-7.0) K/uL Lymph # (Auto) 1.4 (1.0-4.3) K/uL Bullock # (Auto) 0.7 (0.0-0.8) K/uL Eos # (Auto) 0.3 (0.0-0.7) K/uL Baso # (Auto) 0.1 (0.0-0.2) K/uL Sodium (132-148) mmol/L Potassium (3.6-5.2) mmol/L Chloride (98-107) mmol/L Carbon Dioxide (22-30) mmol/L Anion Gap (10-20) BUN (7-17) mg/dL Creatinine (0.7-1.2) mg/dL Est GFR ( Amer) Est GFR (Non-Af Amer) POC Glucose (mg/dL) 186 H 224 H (65-110) mg/dL Random Glucose (65-105) mg/dL Calcium (8.6-10.4) mg/dl Phosphorus (2.5-4.5) mg/dL Magnesium (1.6-2.3) mg/dL Total Bilirubin (0.2-1.3) mg/dL AST (14-36) U/L ALT (9-52) U/L Alkaline Phosphatase (38-126) U/L Total Protein (6.3-8.3) g/dL Albumin (3.5-5.0) g/dL Globulin (2.2-3.9) gm/dL Albumin/Globulin Ratio (1.0-2.1) Laboratory Results - last 24 hr 08/06/18 08/07/18 08/07/18 23:41 06:24 06:26 WBC 8.5 RBC 2.96 L Hgb 8.9 L Hct 26.1 L MCV 88.2 MCH 29.9 MCHC 33.9 RDW 14.8 H Plt Count 301 MPV 9.0 Neut % (Auto) 70.0 Lymph % (Auto) 17.0 L Bullock % (Auto) 8.3 Eos % (Auto) 3.7 Baso % (Auto) 1.0 Neut # (Auto) 5.9 Lymph # (Auto) 1.4 Bullock # (Auto) 0.7 Eos # (Auto) 0.3 Baso # (Auto) 0.1 Sodium Potassium Chloride Carbon Dioxide Anion Gap BUN Creatinine Est GFR ( Amer) Est GFR (Non-Af Amer) POC Glucose (mg/dL) 224 H 186 H Random Glucose Calcium Phosphorus Magnesium Total Bilirubin AST ALT Alkaline Phosphatase Total Protein Albumin Globulin Albumin/Globulin Ratio 08/07/18 08/07/18 08/07/18 06:27 11:16 17:33 WBC RBC Hgb Hct MCV MCH MCHC RDW Plt Count MPV Neut % (Auto) Lymph % (Auto) Bullock % (Auto) Eos % (Auto) Baso % (Auto) Neut # (Auto) Lymph # (Auto) Bullock # (Auto) Eos # (Auto) Baso # (Auto) Sodium 142 Potassium 4.3 Chloride 109 H Carbon Dioxide 25 Anion Gap 12 BUN 41 H Creatinine 1.0 Est GFR ( Amer) > 60 Est GFR (Non-Af Amer) 58 POC Glucose (mg/dL) 174 H 223 H Random Glucose 162 H Calcium 9.4 Phosphorus 5.0 H Magnesium 2.6 H Total Bilirubin 0.7 AST 37 H D ALT 72 H D Alkaline Phosphatase 258 H Total Protein 7.1 Albumin 3.1 L Globulin 4.0 H Albumin/Globulin Ratio 0.8 L Critical Care Progress Note - Nutrition Nutrition: Nutrition Category Date Time Status NPO Diet [DIET] Diets 07/25/18 Breakfast Active Attending/Attestation - Attestation I have personally seen and examined this patient.: Yes I have fully participated in the care of the patient.: Yes I have reviewed all pertinent clinical information: Yes Notes (Text): 08/07/18 19:33 tracheal collor trial
--- NOTE | 2018-08-07 17:04 | CP.PCM.PN ---
Subjective - Date & Time of Evaluation Date of Evaluation: 08/07/18 Time of Evaluation: 17:05 - Subjective Subjective: Medical Attending note: Patient seen and examined this afternoon. Patient underwent trach collar trial at 35% today. Patient having bowel movements, being cleaned at bedside. Patient also noted for vaginal bleeding per nursing staff; being changed multiple times. Objective - Vital Signs/Intake and Output Vital Signs (last 24 hours): Temp Pulse Resp BP Pulse Ox 97.4 F L 94 H 31 H 133/70 100 08/07/18 16:00 08/07/18 16:00 08/07/18 16:00 08/07/18 16:00 08/07/18 16:00 Intake and Output: 08/07/18 08/07/18 06:59 18:59 Intake Total 860 650 Balance 860 650 - Medications Medications: Current Medications Acetaminophen (Tylenol 325mg Tab) 650 mg PEG Q6 PRN PRN Reason: Pain, moderate (4-7) Last Admin: 08/05/18 21:35 Dose: 650 mg Albuterol/Ipratropium (Duoneb 3 Mg/0.5 Mg (3 Ml) Ud) 3 ml INH RQ4 PRN PRN Reason: Shortness of Breath Last Admin: 08/06/18 19:45 Dose: 3 ml Apixaban (Eliquis) 5 mg PO BID [facility] Last Admin: 08/07/18 17:01 Dose: 5 mg Ascorbic Acid (Vitamin C 500 Mg Tab) 1,000 mg NG DAILY [facility] Last Admin: 08/07/18 09:01 Dose: 1,000 mg Aspirin (Aspirin Chewable) 81 mg GT DAILY [facility] Last Admin: 08/07/18 09:00 Dose: 81 mg Bacitracin (Bacitracin) 1 gm TOP BID [facility] Last Admin: 08/07/18 17:00 Dose: 1 appl Insulin Aspart (Novolog) 0 unit SC Q6 [facility]; Protocol Last Admin: 08/07/18 12:00 Dose: 2 units Insulin Glargine (Lantus) 15 unit SC Q12 [facility] Last Admin: 08/07/18 09:17 Dose: 10 u Lactobacillus Acidophilus (Bacid Acidophilus) 1 cap PO Q12H [facility] Last Admin: 08/07/18 09:00 Dose: 1 cap Methimazole (Tapazole) 20 mg PO Q8 [facility] Last Admin: 08/07/18 14:00 Dose: 20 mg Modafinil (Provigil) 100 mg PEG DAILY [facility] Last Admin: 08/07/18 09:17 Dose: Not Given Multivitamins (Hexavitamin) 1 tab PEG DAILY [facility] Last Admin: 08/07/18 09:00 Dose: 1 tab Pantoprazole Sodium (Protonix Susp) 40 mg PO DAILY [facility] Last Admin: 08/07/18 09:00 Dose: 40 mg Vitamin A (Vitamin A & D Oint Ud Foilpak) 1 ea TOP BID [facility] Last Admin: 08/07/18 17:00 Dose: 1 ea - Labs Labs: 08/07/18 06:26 08/07/18 06:27 PT 17.7 SECONDS (9.7-12.2) H 07/28/18 06:19 INR 1.6 07/28/18 06:19 APTT 52 SECONDS (21-34) H 07/31/18 05:56 - Constitutional Appears: Non-toxic, No Acute Distress, Chronically Ill - Head Exam Head Exam: NORMAL INSPECTION - Eye Exam Eye Exam: EOMI - Respiratory Exam Respiratory Exam: Decreased Breath Sounds, Clear to Ausculation Bilateral, NORMAL BREATHING PATTERN. absent: Rales, Rhonchi - Cardiovascular Exam Cardiovascular Exam: REGULAR RHYTHM, +S1, +S2 - GI/Abdominal Exam GI & Abdominal Exam: Soft, Normal Bowel Sounds. absent: Distended, Firm, Guarding, Rigid, Tenderness, Rebound Additional comments: + peg clean/dry/intact - Extremities Exam Extremities Exam: absent: Pedal Edema, Tenderness Additional comments: muscle wasting - Neurological Exam Neurological Exam: Awake - Skin Skin Exam: Dry, Normal Color, Warm. absent: Petechiae Assessment and Plan (1) Septic shock Status: Acute (2) Acute respiratory failure Status: Acute (3) Urinary tract infection Status: Acute (4) Acute renal failure Status: Acute (5) Aspiration pneumonia Status: Acute (6) Diabetes mellitus Status: Chronic (7) Ventricular arrhythmia Status: Acute (8) Hyperthyroidism Status: Acute (9) Anemia Status: Acute (10) Prophylactic measure Status: Acute Attending/Attestation - Attestation I have personally seen and examined this patient.: Yes I have fully participated in the care of the patient.: Yes I have reviewed all pertinent clinical information, including history, physical exam and plan: Yes Notes (Text): Assessment/plan 1) Septic Shock Pneumonia Urinary Tract Infection Assessment/Plan * Infectious Disease (Dr. Brock) on case-->help appreciated * Tmax: 101.7 F (07/19/18) * Afebrile since * Criteria: leukocytosis, tachycardia * Source: aspiration pneumonia and urinary tract infection * 07/07/18: Urine: E. Coli * 07/09/18: Urine: No growth * 07/07/18: Blood culture: no growth after 5 days X2 * 07/09/18 Blood culture: no growth after 5 days X2 * 07/14/18: blood cultures: no growth to date * 07/14/18: sputum culture: yeast species * 07/14/18: Urine culture: no growth * 07/20/18: Blood culture: no growth after 5 days X2 * 07/20/18: Urine culture: no growth * 07/21/18: No Salmonella, shigella, or campobacter * 07/23/18 Urine culture: no growth * MRSA not detected * Antibiotics * Rocephin 2gm IVPB Q12H (07/14/18 through 07/20/18) * Meropenem 1 gm IV Q8H (active since 07/20/18)-->spoke with ICU Physician Dr. Lozada 08/02/18 and as repeat Chest X Ray 07/31/18 does not show any in filtrates, NO need to restart * Vancomycin 1 gram IVPB Q24H (being held since 07/20/18)-->vancomycin level 7.7-->per id to d/c vancomycin * Off antibiotics 2) Acute Respiratory Failure Pulmonary Edema Bilateral Pleural Effusion and Consolidations Likely Secondary to Aspiratio n Pneumonia Anoxic Encephalopagty Assessment/Plan * Required reintubated after 2nd fail attempt; patient underwent tracheostomy 07/24/18 * off Solumedrol * Duonebs RQ4H PRN wheezing * MRSA screen: not detected * Sputum culture 07/09/18, 07/12/18, 07/14/18: yeast * Mycoplasma negative * Legionella was negative * Influenza negative * HIV negative * CT Chest 07/15/18: Moderate to large bilateral pleural effusion and associated consolidations, pathcy grround-glass infiltrates/edema noted within bilateral upper lobes * Chest xray (07/24/18): worsening infiltrates, satisfactory position of rece ntly placed tracheostomy device. Satisfactory position of remaining support apparatus including venous access catheter and recently placed nasogastric tube * Rocephin 2gm IVPB Q12H (07/14/18 through 07/20/18) * Meropenem 1 gm IV Q8H (active since 07/20/18)-->will need renewal by ID * Vancomycin 1 gram IVPB Q24H (being held since 07/20/18) discontinued by ID * Bedside Thoracic U/S 07/17/18 did not reveal enough pleural effusion for Thoracentesis and per IR on 07/28/18 nothing to drain * Lasix 20 mg IV Q12H was discontinued 08/03/18 * Provigil 100 mg PEG 1x/day * Procalcitonin downtrending to 0.75. 3) Anoxic Encephalopathy Ventricular Tachycardia NSTEMI Apical Thrombus LLE DVT Assessment/Plan * Code Blue 07/10: SVT==>VT required amiodarone, magnesium, one shock delivered * Code Blue 07/20: vtach s/p amiodarone, fluid, calcium gluconate, required compressions and shock * Cardiology Dr Francisco on case help appreciated * Echocardiogram (07/07/18): left ventricle systolic function is borderline, ejection fraction is 45-50%, no aortic regurgitation is present, mitral regurgitation is mild. Mild tricuspid regurgitation. mild pulmonary hypertension, mild pulmonic valvular regurgitation * Contrast Echo: Large apical hypokinesis a large 30 x 20 mm soft tissue apical sessile mass suggestive of thrombus overall fraction 40%. Obtain a HUBERT or/consider stress card myopathy if coronary disease is excluded further findings per report * Monitor electrolytes * Eliquis 5 mg PO BID * Aspirin 81 mg PO 1x/day * Propranolol 5mg PO TID was discontinued 08/03/18 * Crestor 2.5 mg PO HS * Will need to f/u cardiology in regards to cath 4) Urinary Tract Infection Assessment/Plan * Infectious disease on board help appreciated * 07/07/18: Urine: E. Coli * 07/09/18: Urine: No growth * 07/14/18: Urine culture: No growth * Urine Culture 07/20/18: No growth 5) Diabetes-->chronic Assessment/Plan * HgBA1c: 7.8 * Hypoglycemic protocol * Lantus 15 units subcutaneous at bedtime Q12 6) Acute on Chronic Renal Failure Assessment/Plan * Nephrology (Dr. Hyde) on board--> help appreciated * Patient will likely not need dialysis * Renal function continues to improve 7) Hyperthyroidism? Low TSH, and Free T4 Thyroid Storm Assessment/Plan * Note Thyroid studies taken before amiodarone was given (please advised this is not amiodarone induced her levels were abnormal prior) * Patient does not have prior thyroid history * Endocrinology (Dr. 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 She will need outpatient FNA Bx of the complex Left Lobe cyst (please see full report) * Methimazole 20mg PO TID * Propranolol 5 mg PO TID was discontinued 08/03/18 * Monitor LFTs 8) Anemia Likely Secondary to Chronic Diseases Assessment/Plan * Iron normal, TIBC low, Iron Saturation normal, Ferritin normal * Stool occult blood negative * B12 normal * Folate Normal * Transfused 1 unit PRBC 07/22/18 * Patient is on Eliquis restarted on 07/31/18 given apical thrombus 9) Transminitis-->improving * Likely secondary to Sepsis and Amiodarone (which was discontinued) * Hepatitis serology negative * Slightly elevated from normal on 07/20/18 but could be secondary to STRADDLE BUGGY OPERATOR/Code Blue 07/20/18 10) Vitamin D deficiency Assessment plan * 50,000 international units once a week for at least 8-12 weeks started on 07/11/18 11) Thrombocytopenia-->resolved Assessment plan * Sepsis, vs Methimazole? * Fibrinogen elevated * HIT and RUTSY both negative for HIT * Currently normalized 12) 13 mm Left Adrenal Nodule * As seen on CT Chest 07/16/18 * Will need outpatient follow up for cross sectional imaging for better characterization 13) Hypernatremia-->resolved * Free water 250 ml 3x/day via OGT * Na now normal 14) LLE DVT * Eliquis 5 mg PO BID restarted on 07/31/18 * Acute thrombosis of the left common femoral and femoral veins with severe reduction of the venous return on 07/18/18 venous doppler 15) Prophylactic measure * Protonix 40mg PO BID * Lactobacillus 1 cap PO BID * MVI 1x/day * Vitamin C 1,000 NG 1x/day * Trach and Peg * Awaiting cardaic cath * SCD on Right and contraindicated on Left due to DVT * Peg feedings * PICC Line 07/31/18 * Off Precedex * Off Ativan * Note: speak to patient in alexis to assess neurologic status-->she does follow Disposition: Patient is awaiting cardiac cath in light of cardiac thrombus. Patient does not have insurance: please f/u with social/case management to start insurance process for potential LTAC/rehab. She will need significant rehab to regain muscle and strength. Continue attempts to wean off Trach. Will consult ob-tying in machine operator hospitalist to see if any recommendations of abnormal vaginal bleeding in light of anticoagulation; patient has had recent US about 2 weeks when her period had started; unable to ilict further history at this time given anoxic encephalopathy and language barrier.
[2018-08-07] MEDS ORDERED: Midazolam 2 MG/2 ML VIAL IVP ONE (21:25)
[2018-08-08] MEDS ORDERED: Midazolam 2 MG/2 ML VIAL IVP ONE ×2 (03:21→06:46)
[2018-08-08] MEDS: (Novolog) Insulin Aspart, Recombinant 100 u/ml 10 ml vial SC SCH ×3 (06:27→18:27)
[2018-08-08 06:28] LABS: BASO # 0.1 K/uL (0.0-0.2); BASO % 0.9 % (0.0-2.0); EOS # 0.4 K/uL (0.0-0.7); EOS % 3.9 % (0.0-4.0); HEMOGLOBIN 9.3 g/dL (11.0-16.0); LYMPH # 2.1 K/uL (1.0-4.3); LYMPH % 22.1 % (20.0-40.0); MEAN CELL VOLUME 88.3 fL (81.0-99.0); MEAN CORPUSCULAR HEMOGLOBIN 29.6 pg (27.0-31.0); MEAN CORPUSCULAR HGB CONC 33.5 g/dL (33.0-37.0); MEAN PLATELET VOLUME 8.7 fL (7.2-11.7); MONO # 0.9 K/uL (0.0-0.8); MONO % 9.3 % (0.0-10.0); NEUT % 63.8 % (50.0-75.0); RBC 3.14 Mil/uL (3.80-5.20); RED CELL DISTRIBUTION WIDTH 14.7 % (11.5-14.5); WHITE BLOOD COUNT 9.4 K/uL (4.8-10.8)
[2018-08-08 06:55] LABS: ALB/GLOB RATIO 0.8 (1.0-2.1); ALBUMIN 3.2 g/dL (3.5-5.0); ALT/SGPT 65 U/L (9-52); AST/SGOT 40 U/L (14-36); BLOOD UREA NITROGEN 31 mg/dL (7-17); CALCIUM 9.8 mg/dl (8.6-10.4); GFR NON-AFRICAN AMERICAN > 60
[2018-08-08] MEDS ORDERED: Sodium Chloride 0.9% 500 ML IV ONE (07:03)
[2018-08-08] MEDS ORDERED: Metoprolol 1 mg/ml Inj IVP ONE (07:11)
--- NOTE | 2018-08-08 09:18 | CP.PCM.PN ---
Subjective - Date & Time of Evaluation Date of Evaluation: 08/08/18 Time of Evaluation: 09:05 - Subjective Subjective: Medical Attending Note: Patient overnight was agitated, went in to rapid afib, required Xanax 0.25, required multiple dose of Versed X3, and Lopressor 5mg IV. Modafinal held this morning. Restart propranolol today Patient seen and examined at bedside. Patient's Goldie is at bedside. Patient received Versed at bedside, mild lethargic. Per , patient can understand spanish, gujarati, alexis, kyrgyz, and Afrikan. Patient is comforted by at bedside. Unable to ROS secondary to clinical condition. Patient to reattempt Trach collar trial again today. When I spoke with her , he is not aware if her periods have changed or been more frequent recently. I spoke with with to touch base with social work in regards to setting up patient with insurance. Objective - Vital Signs/Intake and Output Vital Signs (last 24 hours): Temp Pulse Resp BP Pulse Ox 97.9 F 119 H 15 120/84 100 08/08/18 04:00 08/08/18 07:00 08/08/18 07:00 08/08/18 06:28 08/08/18 07:00 Intake and Output: 08/08/18 08/08/18 06:59 18:59 Intake Total 760 50 Output Total 200 Balance 560 50 - Medications Medications: Current Medications Acetaminophen (Tylenol 325mg Tab) 650 mg PEG Q6 PRN PRN Reason: Pain, moderate (4-7) Last Admin: 08/05/18 21:35 Dose: 650 mg Albuterol/Ipratropium (Duoneb 3 Mg/0.5 Mg (3 Ml) Ud) 3 ml INH RQ4 PRN PRN Reason: Shortness of Breath Last Admin: 08/06/18 19:45 Dose: 3 ml Apixaban (Eliquis) 5 mg PO BID [facility] Last Admin: 08/07/18 17:01 Dose: 5 mg Ascorbic Acid (Vitamin C 500 Mg Tab) 1,000 mg NG DAILY [facility] Last Admin: 08/07/18 09:01 Dose: 1,000 mg Aspirin (Aspirin Chewable) 81 mg GT DAILY [facility] Last Admin: 08/07/18 09:00 Dose: 81 mg Bacitracin (Bacitracin) 1 gm TOP BID [facility] Last Admin: 08/07/18 17:00 Dose: 1 appl Insulin Aspart (Novolog) 0 unit SC Q6 [facility]; Protocol Last Admin: 08/08/18 06:27 Dose: Not Given Insulin Glargine (Lantus) 15 unit SC Q12 [facility] Last Admin: 08/07/18 22:10 Dose: 15 u Lactobacillus Acidophilus (Bacid Acidophilus) 1 cap PO Q12H [facility] Last Admin: 08/07/18 20:30 Dose: 1 cap Methimazole (Tapazole) 20 mg PO Q8 [facility] Last Admin: 08/08/18 06:25 Dose: 20 mg Modafinil (Provigil) 100 mg PEG DAILY [facility] Last Admin: 08/07/18 09:17 Dose: Not Given Multivitamins (Hexavitamin) 1 tab PEG DAILY [facility] Last Admin: 08/07/18 09:00 Dose: 1 tab Pantoprazole Sodium (Protonix Susp) 40 mg PO DAILY [facility] Last Admin: 08/07/18 09:00 Dose: 40 mg Vitamin A (Vitamin A & D Oint Ud Foilpak) 1 ea TOP BID [facility] Last Admin: 08/07/18 17:00 Dose: 1 ea - Labs Labs: 08/08/18 06:08 08/08/18 06:08 PT 17.7 SECONDS (9.7-12.2) H 07/28/18 06:19 INR 1.6 07/28/18 06:19 APTT 52 SECONDS (21-34) H 07/31/18 05:56 - Constitutional Appears: Chronically Ill - Head Exam Head Exam: NORMAL INSPECTION Additional comments: s/p trach (clean/dry/intact) - Eye Exam Eye Exam: EOMI - ENT Exam ENT Exam: Mucous Membranes Dry - Respiratory Exam Respiratory Exam: Decreased Breath Sounds, Rales, NORMAL BREATHING PATTERN. absent: Stridor - Cardiovascular Exam Cardiovascular Exam: REGULAR RHYTHM, +S1, +S2 - GI/Abdominal Exam GI & Abdominal Exam: Distended, Soft, Normal Bowel Sounds. absent: Firm, Guarding, Rigid, Tenderness, Rebound Additional comments: s/p peg clean dry intact - Extremities Exam Extremities Exam: absent: Pedal Edema, Tenderness Additional comments: muscle wasting - Neurological Exam Neurological Exam: Awake - Skin Skin Exam: Dry, Intact, Normal Color, Warm Assessment and Plan (1) Septic shock Status: Acute (2) Acute respiratory failure Status: Acute (3) Urinary tract infection Status: Acute (4) Acute renal failure Status: Acute (5) Aspiration pneumonia Status: Acute (6) Diabetes mellitus Status: Chronic (7) Ventricular arrhythmia Status: Acute (8) Hyperthyroidism Status: Acute (9) Anemia Status: Acute (10) Prophylactic measure Status: Acute Attending/Attestation - Attestation I have personally seen and examined this patient.: Yes I have fully participated in the care of the patient.: Yes I have reviewed all pertinent clinical information, including history, physical exam and plan: Yes Notes (Text): Assessment/plan 1) Septic Shock Pneumonia Urinary Tract Infection Assessment/Plan * Infectious Disease (Dr. Brock) on case-->help appreciated * Tmax: 101.7 F (07/19/18) * Afebrile since * Criteria: leukocytosis, tachycardia * Source: aspiration pneumonia and urinary tract infection * 07/07/18: Urine: E. Coli * 07/09/18: Urine: No growth * 07/07/18: Blood culture: no growth after 5 days X2 * 07/09/18 Blood culture: no growth after 5 days X2 * 07/14/18: blood cultures: no growth to date * 07/14/18: sputum culture: yeast species * 07/14/18: Urine culture: no growth * 07/20/18: Blood culture: no growth after 5 days X2 * 07/20/18: Urine culture: no growth * 07/21/18: No Salmonella, shigella, or campobacter * 07/23/18 Urine culture: no growth * MRSA not detected * Antibiotics * Rocephin 2gm IVPB Q12H (07/14/18 through 07/20/18) * Meropenem 1 gm IV Q8H (active since 07/20/18)-->spoke with ICU Physician Dr. Lozada 08/02/18 and as repeat Chest X Ray 07/31/18 does not show any infiltrates, NO need to restart * Vancomycin 1 gram IVPB Q24H (being held since 07/20/18)-->vancomycin level 7.7-->per id to d/c vancomycin * Off antibiotics 2) Acute Respiratory Failure Pulmonary Edema Bilateral Pleural Effusion and Consolidations Likely Secondary to Aspiration Pneumonia Anoxic Encephalopagty Assessment/Plan * Required reintubated after 2nd fail attempt; patient underwent tracheostomy 07/24/18 * off Solumedrol * Duonebs RQ4H PRN wheezing * MRSA screen: not detected * Sputum culture 07/09/18, 07/12/18, 07/14/18: yeast * Mycoplasma negative * Legionella was negative * Influenza negative * HIV negative * CT Chest 07/15/18: Moderate to large bilateral pleural effusion and associated consolidations, pathcy grround-glass infiltrates/edema noted within bilateral upper lobes * Chest xray (07/24/18): worsening infiltrates, satisfactory position of recently placed tracheostomy device. Satisfactory position of remaining support apparatus including venous access catheter and recently placed nasogastric tube * Rocephin 2gm IVPB Q12H (07/14/18 through 07/20/18) * Meropenem 1 gm IV Q8H (active since 07/20/18)-->will need renewal by ID * Vancomycin 1 gram IVPB Q24H (being held since 07/20/18) discontinued by ID * Bedside Thoracic U/S 07/17/18 did not reveal enough pleural effusion for Thoracentesis and per IR on 07/28/18 nothing to drain * Lasix 20 mg IV Q12H was discontinued 08/03/18 * held Provigil 100 mg PEG 1x/day * Patient is awake all night--->patient was in rapid afib overnight. * Procalcitonin downtrending to 0.75. 3) Anoxic Encephalopathy Ventricular Tachycardia NSTEMI Apical Thrombus LLE DVT Assessment/Plan * Code Blue 07/10: SVT==>VT required amiodarone, magnesium, one shock delivered * Code Blue 07/20: vtach s/p amiodarone, fluid, calcium gluconate, required compressions and shock * Cardiology Dr Francisco on case help appreciated * will need to f/u regarding cath * Echocardiogram (07/07/18): left ventricle systolic function is borderline, ejection fraction is 45-50%, no aortic regurgitation is present, mitral regurgitation is mild. Mild tricuspid regurgitation. mild pulmonary hypertensi on, mild pulmonic valvular regurgitation * Contrast Echo: Large apical hypokinesis a large 30 x 20 mm soft tissue apical sessile mass suggestive of thrombus overall fraction 40%. Obtain a HUBERT or/consider stress card myopathy if coronary disease is excluded further findings per report * Monitor electrolytes * Eliquis 5 mg PO BID * Aspirin 81 mg PO 1x/day * Propranolol 5mg PO TID restart 08/08/18 * Patient had rapid afib overnight 08/07/18 * Crestor 2.5 mg PO HS * Will need to f/u cardiology in regards to cath 4) Urinary Tract Infection Assessment/Plan * Infectious disease on board help appreciated * 07/07/18: Urine: E. Coli * 07/09/18: Urine: No growth * 07/14/18: Urine culture: No growth * Urine Culture 07/20/18: No growth 5) Diabetes-->chronic Assessment/Plan * HgBA1c: 7.8 * Hypoglycemic protocol * Lantus 15 units subcutaneous at bedtime Q12 6) Acute on Chronic Renal Failure Assessment/Plan * Nephrology (Dr. Hyde) on board--> help appreciated * Patient will likely not need dialysis * Renal function continues to improve 7) Hyperthyroidism? Low TSH, and Free T4 Thyroid Storm Assessment/Plan * Note Thyroid studies taken before amiodarone was given (please advised this is not amiodarone induced her levels were abnormal prior) * Patient does not have prior thyroid history * Endocrinology (Dr. 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 She will need outpatient FNA Bx of the complex Left Lobe cyst (please see full report) * Methimazole 20mg PO TID * Propranolol 5 mg PO TID was discontinued 08/03/18; restart 08/08/18 * Monitor LFTs 8) Anemia Likely Secondary to Chronic Diseases Assessment/Plan * Iron normal, TIBC low, Iron Saturation normal, Ferritin normal * Stool occult blood negative * B12 normal * Folate Normal * Transfused 1 unit PRBC 07/22/18 * Patient is on Eliquis restarted on 07/31/18 given apical thrombus 9) Transminitis-->improving * Likely secondary to Sepsis and Amiodarone (which was discontinued) * Hepatitis serology negative * Slightly elevated from normal on 07/20/18 but could be secondary to PROFESSIONAL SECURITY OFFICER/Code Blue 07/20/18 10) Vitamin D deficiency Assessment plan * 50,000 international units once a week for at least 8-12 weeks started on 07/11/18 11) Thrombocytopenia-->resolved Assessment plan * Sepsis, vs Methimazole? * Fibrinogen elevated * HIT and RUSTY both negative for HIT * Currently normalized 12) 13 mm Left Adrenal Nodule * As seen on CT Chest 07/16/18 * Will need outpatient follow up for cross sectional imaging for better characterization 13) Hypernatremia-->resolved * Free water 250 ml 3x/day via OGT * Na now normal 14) LLE DVT * Eliquis 5 mg PO BID restarted on 07/31/18 * Acute thrombosis of the left common femoral and femoral veins with severe reduction of the venous return on 07/18/18 venous doppler 15) Prophylactic measure * Protonix 40mg PO BID * Lactobacillus 1 cap PO BID * MVI 1x/day * Vitamin C 1,000 NG 1x/day * Trach and Peg * Awaiting cardaic cath * SCD on Right and contraindicated on Left due to DVT * Peg feedings * PICC Line 07/31/18 * Off Precedex * Off Ativan * Note: speak to patient in alexis to assess neurologic status-->she does follow Disposition: Patient is awaiting cardiac cath in light of cardiac thrombus. Patient does not have insurance: please f/u with social/case management to start insurance process for potential LTAC/rehab. She will need significant rehab to regain muscle and strength. Continue attempts to wean off Trach. Patient to have trach collar trial again today. Will consult ob-adjunct english instructor hospitalist to see if any recommendations of abnormal vaginal bleeding in light of anticoagulation; patient has had recent US about 2 weeks when her period had started; unable to ilict further history at this time given anoxic encephalopathy and language barrier.
[2018-08-08] MEDS: Lactobacillus Acidophilus 500 MU Cap PO SCH ×2 (10:00→20:25)
[2018-08-08] MEDS: Multiple Vitamins Tab PEG SCH (10:56)
[2018-08-08] MEDS: (Lantus) Insulin Glargine, Recombinant SC SCH ×2 (10:56→21:50)
[2018-08-08] MEDS: Vitamins A & D Oint UD Foilpak TOP SCH ×2 (10:57→17:12)
[2018-08-08] MEDS: Pantoprazole 40 mg Susp UD PO SCH (10:58)
[2018-08-08] MEDS: Bacitracin Ointment 30 GM TUBE TOP SCH ×2 (10:59→17:11)
[2018-08-08] MEDS: Propranolol 5 mg Tab PO SCH ×3 (11:30→17:11)
--- NOTE | 2018-08-08 11:30 | CP.PCM.CON ---
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 Gynecology consult was placed for noted vaginal bleeding. Due to patient's current condition, she is unable to provide gynecology history and so is her . As per nursing staff, patient has light to moderate vaginal bleeding. 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 Ob Hx: Unable to obtain Social Hx- Denies smoking ( is a smoker), illicit drug use or alcohol intake Review of Systems - Review of Systems Review of Systems: Unable to obtain due to current medical condition Past Patient History - Tetanus Immunizations Tetanus Immunization: Unknown - Past Medical History & Family History Past Family History: Reviewed and not pertinent - Past Social History Smoking Status: Never Smoked Alcohol: None Drugs: Denies Home Situation {Lives}: With Family - CARDIAC Hx Hypercholesterolemia: Yes - PULMONARY Hx Respiratory Disorders: No - NEUROLOGICAL Hx Neurological Disorder: No - HEENT Hx HEENT Problems: No - RENAL Hx Chronic Kidney Disease: No - ENDOCRINE/METABOLIC Hx Diabetes Mellitus Type 1: Yes - HEMATOLOGICAL/ONCOLOGICAL Hx Blood Disorders: No - INTEGUMENTARY Hx Dermatological Problems: No - MUSCULOSKELETAL/RHEUMATOLOGICAL Hx Musculoskeletal Disorders: No Hx Falls: No - GASTROINTESTINAL Hx Gastrointestinal Disorders: No - GENITOURINARY/GYNECOLOGICAL Hx Genitourinary Disorders: No - PSYCHIATRIC Hx Substance Use: No - SURGICAL HISTORY Other/Comment: removal of ovaries - ANESTHESIA Hx Anesthesia: Yes Hx Anesthesia Reactions: No Hx Malignant Hyperthermia: No Meds Allergies/Adverse Reactions: Allergies Allergy/AdvReac Type Severity Reaction Status Date / Time No Known Allergies Allergy Unverified 07/03/18 23:36 - Medications Medications: Current Medications Acetaminophen (Tylenol 325mg Tab) 650 mg PEG Q6 PRN PRN Reason: Pain, moderate (4-7) Last Admin: 08/05/18 21:35 Dose: 650 mg Albuterol/Ipratropium (Duoneb 3 Mg/0.5 Mg (3 Ml) Ud) 3 ml INH RQ4 PRN PRN Reason: Shortness of Breath Last Admin: 08/06/18 19:45 Dose: 3 ml Apixaban (Eliquis) 5 mg PO BID [facility] Last Admin: 08/08/18 10:58 Dose: 5 mg Ascorbic Acid (Vitamin C 500 Mg Tab) 1,000 mg NG DAILY [facility] Last Admin: 08/08/18 10:56 Dose: 1,000 mg Aspirin (Aspirin Chewable) 81 mg GT DAILY [facility] Last Admin: 08/08/18 10:55 Dose: 81 mg Bacitracin (Bacitracin) 1 gm TOP BID [facility] Last Admin: 08/08/18 10:59 Dose: 1 appl Insulin Aspart (Novolog) 0 unit SC Q6 [facility]; Protocol Last Admin: 08/08/18 06:27 Dose: Not Given Insulin Glargine (Lantus) 15 unit SC Q12 [facility] Last Admin: 08/08/18 10:56 Dose: 15 u Lactobacillus Acidophilus (Bacid Acidophilus) 1 cap PO Q12H [facility] Last Admin: 08/08/18 10:00 Dose: 1 cap Methimazole (Tapazole) 20 mg PO Q8 [facility] Last Admin: 08/08/18 06:25 Dose: 20 mg Modafinil (Provigil) 100 mg PEG DAILY [facility] Last Admin: 08/07/18 09:17 Dose: Not Given Multivitamins (Hexavitamin) 1 tab PEG DAILY [facility] Last Admin: 08/08/18 10:56 Dose: 1 tab Pantoprazole Sodium (Protonix Susp) 40 mg PO DAILY [facility] Last Admin: 08/08/18 10:58 Dose: 40 mg Propranolol HCl (Inderal) 5 mg PO TID [facility] Vitamin A (Vitamin A & D Oint Ud Foilpak) 1 ea TOP BID [facility] Last Admin: 08/08/18 10:57 Dose: 1 ea Physical Exam - Constitutional Additional comments: Given versed 6:47am and patient is currently sedated - Head Exam Head Exam: ATRAUMATIC - Neck Exam Additional comments: With tracheostomy - Exam Additional comments: Unable to exam due to patient's current condition and positioning Results - Vital Signs Recent Vital Signs: Last Vital Signs Temp 97.9 F 08/08/18 04:00 Pulse 89 08/08/18 10:00 Resp 47 H 08/08/18 10:00 BP 133/81 08/08/18 09:28 Pulse Ox 100 08/08/18 10:00 - Labs Result Diagrams: 08/08/18 06:08 08/08/18 06:08 Labs: Laboratory Results - last 24 hr 08/07/18 08/07/18 08/07/18 11:16 17:33 20:31 WBC RBC Hgb Hct MCV MCH MCHC RDW Plt Count MPV Neut % (Auto) Lymph % (Auto) Person % (Auto) Eos % (Auto) Baso % (Auto) Neut # (Auto) Lymph # (Auto) Person # (Auto) Eos # (Auto) Baso # (Auto) Sodium Potassium Chloride Carbon Dioxide Anion Gap BUN Creatinine Est GFR ( Amer) Est GFR (Non-Af Amer) POC Glucose (mg/dL) 174 H 223 H Random Glucose Calcium Phosphorus Magnesium Total Bilirubin AST ALT Alkaline Phosphatase Total Protein Albumin Globulin Albumin/Globulin Ratio CA 125 Antigen 497 H 08/07/18 08/08/18 08/08/18 23:27 06:08 06:08 WBC 9.4 RBC 3.14 L Hgb 9.3 L Hct 27.7 L MCV 88.3 MCH 29.6 MCHC 33.5 RDW 14.7 H Plt Count 361 MPV 8.7 Neut % (Auto) 63.8 Lymph % (Auto) 22.1 Person % (Auto) 9.3 Eos % (Auto) 3.9 Baso % (Auto) 0.9 Neut # (Auto) 6.0 Lymph # (Auto) 2.1 Person # (Auto) 0.9 H Eos # (Auto) 0.4 Baso # (Auto) 0.1 Sodium 143 Potassium 4.1 Chloride 111 H Carbon Dioxide 22 Anion Gap 14 BUN 31 H Creatinine 0.9 Est GFR ( Amer) > 60 Est GFR (Non-Af Amer) > 60 POC Glucose (mg/dL) 249 H Random Glucose 118 H Calcium 9.8 Phosphorus 4.2 Magnesium 2.5 H Total Bilirubin 0.9 AST 40 H ALT 65 H Alkaline Phosphatase 326 H D Total Protein 7.1 Albumin 3.2 L Globulin 3.9 Albumin/Globulin Ratio 0.8 L CA 125 Antigen 08/08/18 06:26 WBC RBC Hgb Hct MCV MCH MCHC RDW Plt Count MPV Neut % (Auto) Lymph % (Auto) Person % (Auto) Eos % (Auto) Baso % (Auto) Neut # (Auto) Lymph # (Auto) Person # (Auto) Eos # (Auto) Baso # (Auto) Sodium Potassium Chloride Carbon Dioxide Anion Gap BUN Creatinine Est GFR ( Amer) Est GFR (Non-Af Amer) POC Glucose (mg/dL) 124 H Random Glucose Calcium Phosphorus Magnesium Total Bilirubin AST ALT Alkaline Phosphatase Total Protein Albumin Globulin Albumin/Globulin Ratio CA 125 Antigen Assessment & Plan (1) Vaginal bleeding Assessment and Plan: Can be possibly secondary to perimenopausal as 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 Gynecology consult was placed for noted vaginal bleeding. 1. Recommendation for outpatient for follow up. Patient will need an endometrial sampling with possibly a potential need for gynecology oncology follow up if needed and will possibly need extensive and multidisciplinary care pending endometrial sampling findings. Currently, there is no inpatient gynecology work- up needed. Thank you for the consultation All plans and management discussed with Dr. Himanshu Trujillo DO, PGY-2 Status: Acute <Terese Downs - Last Filed: 08/08/18 15:02> Meds - Medications Medications: Current Medications Acetaminophen (Tylenol 325mg Tab) 650 mg PEG Q6 PRN PRN Reason: Pain, moderate (4-7) Last Admin: 08/05/18 21:35 Dose: 650 mg Albuterol/Ipratropium (Duoneb 3 Mg/0.5 Mg (3 Ml) Ud) 3 ml INH RQ4 PRN PRN Reason: Shortness of Breath Last Admin: 08/06/18 19:45 Dose: 3 ml Apixaban (Eliquis) 5 mg PO BID [facility] Last Admin: 08/08/18 10:58 Dose: 5 mg Ascorbic Acid (Vitamin C 500 Mg Tab) 1,000 mg NG DAILY [facility] Last Admin: 08/08/18 10:56 Dose: 1,000 mg Aspirin (Aspirin Chewable) 81 mg GT DAILY [facility] Last Admin: 08/08/18 10:55 Dose: 81 mg Bacitracin (Bacitracin) 1 gm TOP BID [facility] Last Admin: 08/08/18 10:59 Dose: 1 appl Insulin Aspart (Novolog) 0 unit SC Q6 [facility]; Protocol Last Admin: 08/08/18 12:18 Dose: 2 units Insulin Glargine (Lantus) 15 unit SC Q12 [facility] Last Admin: 08/08/18 10:56 Dose: 15 u Lactobacillus Acidophilus (Bacid Acidophilus) 1 cap PO Q12H [facility] Last Admin: 08/08/18 10:00 Dose: 1 cap Methimazole (Tapazole) 20 mg PO Q8 [facility] Last Admin: 08/08/18 06:25 Dose: 20 mg Modafinil (Provigil) 100 mg PEG DAILY [facility] Last Admin: 08/07/18 09:17 Dose: Not Given Multivitamins (Hexavitamin) 1 tab PEG DAILY [facility] Last Admin: 08/08/18 10:56 Dose: 1 tab Pantoprazole Sodium (Protonix Susp) 40 mg PO DAILY [facility] Last Admin: 08/08/18 10:58 Dose: 40 mg Propranolol HCl (Inderal) 5 mg PO TID [facility] Last Admin: 08/08/18 11:30 Dose: 5 mg Vitamin A (Vitamin A & D Oint Ud Foilpak) 1 ea TOP BID [facility] Last Admin: 08/08/18 10:57 Dose: 1 ea Results - Vital Signs Recent Vital Signs: Last Vital Signs Temp 97.9 F 08/08/18 12:00 Pulse 71 08/08/18 13:00 Resp 31 H 08/08/18 13:00 BP 118/70 08/08/18 12:28 Pulse Ox 100 08/08/18 13:00 - Labs Result Diagrams: 08/08/18 06:08 08/08/18 06:08 Labs: Laboratory Results - last 24 hr 08/07/18 08/07/18 08/07/18 11:16 17:33 20:31 WBC RBC Hgb Hct MCV MCH MCHC RDW Plt Count MPV Neut % (Auto) Lymph % (Auto) Person % (Auto) Eos % (Auto) Baso % (Auto) Neut # (Auto) Lymph # (Auto) Person # (Auto) Eos # (Auto) Baso # (Auto) Sodium Potassium Chloride Carbon Dioxide Anion Gap BUN Creatinine Est GFR ( Amer) Est GFR (Non-Af Amer) POC Glucose (mg/dL) 174 H 223 H Random Glucose Calcium Phosphorus Magnesium Total Bilirubin AST ALT Alkaline Phosphatase Total Protein Albumin Globulin Albumin/Globulin Ratio CA 125 Antigen 497 H 08/07/18 08/08/18 08/08/18 23:27 06:08 06:08 WBC 9.4 RBC 3.14 L Hgb 9.3 L Hct 27.7 L MCV 88.3 MCH 29.6 MCHC 33.5 RDW 14.7 H Plt Count 361 MPV 8.7 Neut % (Auto) 63.8 Lymph % (Auto) 22.1 Person % (Auto) 9.3 Eos % (Auto) 3.9 Baso % (Auto) 0.9 Neut # (Auto) 6.0 Lymph # (Auto) 2.1 Person # (Auto) 0.9 H Eos # (Auto) 0.4 Baso # (Auto) 0.1 Sodium 143 Potassium 4.1 Chloride 111 H Carbon Dioxide 22 Anion Gap 14 BUN 31 H Creatinine 0.9 Est GFR ( Amer) > 60 Est GFR (Non-Af Amer) > 60 POC Glucose (mg/dL) 249 H Random Glucose 118 H Calcium 9.8 Phosphorus 4.2 Magnesium 2.5 H Total Bilirubin 0.9 AST 40 H ALT 65 H Alkaline Phosphatase 326 H D Total Protein 7.1 Albumin 3.2 L Globulin 3.9 Albumin/Globulin Ratio 0.8 L CA 125 Antigen 08/08/18 08/08/18 06:26 11:31 WBC RBC Hgb Hct MCV MCH MCHC RDW Plt Count MPV Neut % (Auto) Lymph % (Auto) Person % (Auto) Eos % (Auto) Baso % (Auto) Neut # (Auto) Lymph # (Auto) Person # (Auto) Eos # (Auto) Baso # (Auto) Sodium Potassium Chloride Carbon Dioxide Anion Gap BUN Creatinine Est GFR ( Amer) Est GFR (Non-Af Amer) POC Glucose (mg/dL) 124 H 162 H Random Glucose Calcium Phosphorus Magnesium Total Bilirubin AST ALT Alkaline Phosphatase Total Protein Albumin Globulin Albumin/Globulin Ratio CA 125 Antigen Attending/Attestation - Attestation I have personally seen and examined this patient.: Yes I have fully participated in the care of the patient.: Yes I have reviewed all pertinent clinical information: Yes Notes (Text): 08/08/18 14:59 Patient seen by me with the Resident in the ICU bed 12 - patient 's nurse also present. I agree with the above as documented. No inpatient government program manager intervention indicated at this time. Could anticipate outpatient multi-disciplinary care. Thank you for the pleasure of this consultation
--- NOTE | 2018-08-08 11:54 | CP.CCUPN ---
<Brayan Gonzalez - Last Filed: 08/08/18 14:19> CCU Subjective - Physician Review Events Since Last Encounter (Free Text): 08/08/18 11:53 Per Nurse, patient was restless overnight. Otherwise no acute events overnight. Subjective (Free Text): 08/08/18 11:52 PGY1 Critical Care Progress Note for Dr. Carrillo Patient seen and evaluated this morning. at bedside. Patient is alert and able to follow 1-step commands. Patient is sitting up in chair today. Patient is currently with PEG, Tracheostomy, and PICC line. Patient placed on Trach collar yesterday and tolerated well for approximately 5 hours. No bleeding. No acute issues. ROS could not be obtained due to clinical condition. 08/08/18 11:52 Critical Care Time Spent (in minutes): 35 CCU Objective - Vital Signs / Intake & Output Vital Signs (Last 4 hours): Vital Signs Pulse Resp BP Pulse Ox 08/08/18 10:00 89 47 H 100 08/08/18 09:28 85 49 H 133/81 100 08/08/18 09:00 81 47 H 100 08/08/18 08:28 83 17 115/69 08/08/18 08:00 98 H 14 91 L Intake and Output (Last 8hrs): Intake & Output 08/07/18 08/08/18 08/08/18 22:59 06:59 14:59 Intake Total 510 500 200 Output Total 200 100 0 Balance 310 400 200 Weight 100 lb 6.4 oz Intake: Tube Feeding 350 400 200 Other 160 100 Output: Urine 200 100 Urine, Voided 200 100 Emesis 0 Other: # Voids Urine, Voided 0 0 0 # Bowel Movements 0 0 0 - Physical Exam Head: Positive for: Atraumatic, Normocephalic Pupils: Positive for: PERRL. Negative for: Sluggish, Pinpoint Extroacular Muscles: Positive for: EOMI. Negative for: Gaze Palsy Conjunctiva: Positive for: Normal. Negative for: Injected, Icteric Mouth: Positive for: Moist Mucous Membranes Nose (External): Positive for: Atraumatic. Negative for: Abrasion, Contusion, Laceration Nose (Internal): Positive for: No Active Bleeding. Negative for: Epistaxis Neck: Positive for: Normal Range of Motion, Trachea Midline. Negative for: JVD Respiratory/Chest: Positive for: Good Air Exchange, Rhonchi (mild ronchi in bilateral bases), Other (trach). Negative for: Wheezes, Rales Cardiovascular: Positive for: Normal S1, S2, Peripheal Pulses Present, Tachycardic. Negative for: Regular Rate and Rhythm Abdomen: Positive for: Normal Bowel Sounds. Negative for: Tenderness, Distention, Rebound, Guarding Upper Extremity: Positive for: Normal Inspection, NORMAL PULSES. Negative for: Cyanosis, Edema Lower Extremity: Positive for: Normal Inspection. Negative for: Edema, CALF TENDERNESS Neurological: Positive for: Other Skin: Positive for: Warm, Dry, Normal Color Psychiatric: Positive for: Alert - Medications Active Medications: Active Medications Generic Name Dose Route Start Last Admin Trade Name Freq PRN Reason Stop Dose Admin Acetaminophen 650 mg 07/28/18 13:39 08/05/18 21:35 Tylenol 325mg Tab PEG 650 mg Q6 PRN Administration Pain, moderate (4-7) Albuterol/Ipratropium 3 ml 07/28/18 16:34 08/06/18 19:45 Duoneb 3 Mg/0.5 Mg (3 Ml) Ud INH 3 ml RQ4 PRN Administration Shortness of Breath Apixaban 5 mg 07/31/18 18:00 08/08/18 10:58 Eliquis PO 5 mg BID MANOLO Administration Ascorbic Acid 1,000 mg 07/24/18 10:00 08/08/18 10:56 Vitamin C 500 Mg Tab NG 1,000 mg DAILY MANOLO Administration Aspirin 81 mg 07/17/18 10:00 08/08/18 10:55 Aspirin Chewable GT 81 mg DAILY MANOLO Administration Bacitracin 1 gm 08/05/18 22:00 08/08/18 10:59 Bacitracin TOP 1 appl BID MANOLO Administration Insulin Aspart 0 unit 07/11/18 08:28 08/08/18 06:27 Novolog SC Not Given Q6 [facility] Protocol Insulin Glargine 15 unit 08/02/18 22:00 08/08/18 10:56 Lantus SC 15 u Q12 MANOLO Administration Lactobacillus Acidophilus 1 cap 07/08/18 20:00 08/08/18 10:00 Bacid Acidophilus PO 1 cap Q12H MANOLO Administration Methimazole 20 mg 07/27/18 14:00 08/08/18 06:25 Tapazole PO 20 mg Q8 MANOLO Administration Modafinil 100 mg 08/02/18 10:00 08/07/18 09:17 Provigil PEG Not Given DAILY MANOLO Multivitamins 1 tab 08/06/18 10:00 08/08/18 10:56 Hexavitamin PEG 1 tab DAILY MANOLO Administration Pantoprazole Sodium 40 mg 07/20/18 10:00 08/08/18 10:58 Protonix Susp PO 40 mg DAILY MANOLO Administration Propranolol HCl 5 mg 08/08/18 10:00 Inderal PO TID MANOLO Vitamin A 1 ea 07/28/18 18:00 08/08/18 10:57 Vitamin A & D Oint Ud Foilpak TOP 1 ea BID MANOLO Administration - Patient Studies Lab Studies: Microbiology Studies 07/10/18 11:01 Mycobacterial Culture - Preliminary Other: Please Indicate Lab Studies 08/08/18 08/08/18 08/08/18 Range/Units 11: 06:26 06:08 WBC (4.8-10.8) K/uL RBC (3.80-5.20) Mil/uL Hgb (11.0-16.0) g/dL Hct (34.0-47.0) % MCV (81.0-99.0) fL MCH (27.0-31.0) pg MCHC (33.0-37.0) g/dL RDW (11.5-14.5) % Plt Count (130-400) K/uL MPV (7.2-11.7) fL Neut % (Auto) (50.0-75.0) % Lymph % (Auto) (20.0-40.0) % Coke % (Auto) (0.0-10.0) % Eos % (Auto) (0.0-4.0) % Baso % (Auto) (0.0-2.0) % Neut # (Auto) (1.8-7.0) K/uL Lymph # (Auto) (1.0-4.3) K/uL Coke # (Auto) (0.0-0.8) K/uL Eos # (Auto) (0.0-0.7) K/uL Baso # (Auto) (0.0-0.2) K/uL Sodium 143 (132-148) mmol/L Potassium 4.1 (3.6-5.2) mmol/L Chloride 111 H (98-107) mmol/L Carbon Dioxide 22 (22-30) mmol/L Anion Gap 14 (10-20) BUN 31 H (7-17) mg/dL Creatinine 0.9 (0.7-1.2) mg/dL Est GFR ( Amer) > 60 Est GFR (Non-Af Amer) > 60 POC Glucose (mg/dL) 162 H 124 H (65-110) mg/dL Random Glucose 118 H (65-105) mg/dL Calcium 9.8 (8.6-10.4) mg/dl Phosphorus 4.2 (2.5-4.5) mg/dL Magnesium 2.5 H (1.6-2.3) mg/dL Total Bilirubin 0.9 (0.2-1.3) mg/dL AST 40 H (14-36) U/L ALT 65 H (9-52) U/L Alkaline Phosphatase 326 H D (38-126) U/L Total Protein 7.1 (6.3-8.3) g/dL Albumin 3.2 L (3.5-5.0) g/dL Globulin 3.9 (2.2-3.9) gm/dL Albumin/Globulin Ratio 0.8 L (1.0-2.1) CA 125 Antigen (0-35) U/mL 08/08/18 08/07/18 08/07/18 Range/Units 06:08 23:27 20:31 WBC 9.4 (4.8-10.8) K/uL RBC 3.14 L (3.80-5.20) Mil/uL Hgb 9.3 L (11.0-16.0) g/dL Hct 27.7 L (34.0-47.0) % MCV 88.3 (81.0-99.0) fL MCH 29.6 (27.0-31.0) pg MCHC 33.5 (33.0-37.0) g/dL RDW 14.7 H (11.5-14.5) % Plt Count 361 (130-400) K/uL MPV 8.7 (7.2-11.7) fL Neut % (Auto) 63.8 (50.0-75.0) % Lymph % (Auto) 22.1 (20.0-40.0) % Coke % (Auto) 9.3 (0.0-10.0) % Eos % (Auto) 3.9 (0.0-4.0) % Baso % (Auto) 0.9 (0.0-2.0) % Neut # (Auto) 6.0 (1.8-7.0) K/uL Lymph # (Auto) 2.1 (1.0-4.3) K/uL Coke # (Auto) 0.9 H (0.0-0.8) K/uL Eos # (Auto) 0.4 (0.0-0.7) K/uL Baso # (Auto) 0.1 (0.0-0.2) K/uL Sodium (132-148) mmol/L Potassium (3.6-5.2) mmol/L Chloride (98-107) mmol/L Carbon Dioxide (22-30) mmol/L Anion Gap (10-20) BUN (7-17) mg/dL Creatinine (0.7-1.2) mg/dL Est GFR ( Amer) Est GFR (Non-Af Amer) POC Glucose (mg/dL) 249 H (65-110) mg/dL Random Glucose (65-105) mg/dL Calcium (8.6-10.4) mg/dl Phosphorus (2.5-4.5) mg/dL Magnesium (1.6-2.3) mg/dL Total Bilirubin (0.2-1.3) mg/dL AST (14-36) U/L ALT (9-52) U/L Alkaline Phosphatase (38-126) U/L Total Protein (6.3-8.3) g/dL Albumin (3.5-5.0) g/dL Globulin (2.2-3.9) gm/dL Albumin/Globulin Ratio (1.0-2.1) CA 125 Antigen 497 H (0-35) U/mL 08/07/18 08/07/18 Range/Units 17:33 11:16 WBC (4.8-10.8) K/uL RBC (3.80-5.20) Mil/uL Hgb (11.0-16.0) g/dL Hct (34.0-47.0) % MCV (81.0-99.0) fL MCH (27.0-31.0) pg MCHC (33.0-37.0) g/dL RDW (11.5-14.5) % Plt Count (130-400) K/uL MPV (7.2-11.7) fL Neut % (Auto) (50.0-75.0) % Lymph % (Auto) (20.0-40.0) % Coke % (Auto) (0.0-10.0) % Eos % (Auto) (0.0-4.0) % Baso % (Auto) (0.0-2.0) % Neut # (Auto) (1.8-7.0) K/uL Lymph # (Auto) (1.0-4.3) K/uL Coke # (Auto) (0.0-0.8) K/uL Eos # (Auto) (0.0-0.7) K/uL Baso # (Auto) (0.0-0.2) K/uL Sodium (132-148) mmol/L Potassium (3.6-5.2) mmol/L Chloride (98-107) mmol/L Carbon Dioxide (22-30) mmol/L Anion Gap (10-20) BUN (7-17) mg/dL Creatinine (0.7-1.2) mg/dL Est GFR ( Amer) Est GFR (Non-Af Amer) POC Glucose (mg/dL) 223 H 174 H (65-110) mg/dL Random Glucose (65-105) mg/dL Calcium (8.6-10.4) mg/dl Phosphorus (2.5-4.5) mg/dL Magnesium (1.6-2.3) mg/dL Total Bilirubin (0.2-1.3) mg/dL AST (14-36) U/L ALT (9-52) U/L Alkaline Phosphatase (38-126) U/L Total Protein (6.3-8.3) g/dL Albumin (3.5-5.0) g/dL Globulin (2.2-3.9) gm/dL Albumin/Globulin Ratio (1.0-2.1) CA 125 Antigen (0-35) U/mL Laboratory Results - last 24 hr 08/07/18 08/07/18 08/07/18 11:16 17:33 20:31 WBC RBC Hgb Hct MCV MCH MCHC RDW Plt Count MPV Neut % (Auto) Lymph % (Auto) Coke % (Auto) Eos % (Auto) Baso % (Auto) Neut # (Auto) Lymph # (Auto) Coke # (Auto) Eos # (Auto) Baso # (Auto) Sodium Potassium Chloride Carbon Dioxide Anion Gap BUN Creatinine Est GFR ( Amer) Est GFR (Non-Af Amer) POC Glucose (mg/dL) 174 H 223 H Random Glucose Calcium Phosphorus Magnesium Total Bilirubin AST ALT Alkaline Phosphatase Total Protein Albumin Globulin Albumin/Globulin Ratio CA 125 Antigen 497 H 08/07/18 08/08/18 08/08/18 23:27 06:08 06:08 WBC 9.4 RBC 3.14 L Hgb 9.3 L Hct 27.7 L MCV 88.3 MCH 29.6 MCHC 33.5 RDW 14.7 H Plt Count 361 MPV 8.7 Neut % (Auto) 63.8 Lymph % (Auto) 22.1 Coke % (Auto) 9.3 Eos % (Auto) 3.9 Baso % (Auto) 0.9 Neut # (Auto) 6.0 Lymph # (Auto) 2.1 Coke # (Auto) 0.9 H Eos # (Auto) 0.4 Baso # (Auto) 0.1 Sodium 143 Potassium 4.1 Chloride 111 H Carbon Dioxide 22 Anion Gap 14 BUN 31 H Creatinine 0.9 Est GFR ( Amer) > 60 Est GFR (Non-Af Amer) > 60 POC Glucose (mg/dL) 249 H Random Glucose 118 H Calcium 9.8 Phosphorus 4.2 Magnesium 2.5 H Total Bilirubin 0.9 AST 40 H ALT 65 H Alkaline Phosphatase 326 H D Total Protein 7.1 Albumin 3.2 L Globulin 3.9 Albumin/Globulin Ratio 0.8 L CA 125 Antigen 08/08/18 08/08/18 06:26 11:31 WBC RBC Hgb Hct MCV MCH MCHC RDW Plt Count MPV Neut % (Auto) Lymph % (Auto) Coke % (Auto) Eos % (Auto) Baso % (Auto) Neut # (Auto) Lymph # (Auto) Coke # (Auto) Eos # (Auto) Baso # (Auto) Sodium Potassium Chloride Carbon Dioxide Anion Gap BUN Creatinine Est GFR ( Amer) Est GFR (Non-Af Amer) POC Glucose (mg/dL) 124 H 162 H Random Glucose Calcium Phosphorus Magnesium Total Bilirubin AST ALT Alkaline Phosphatase Total Protein Albumin Globulin Albumin/Globulin Ratio CA 125 Antigen EKG/Cardiology Studies: Cardiology / EKG Studies 08/08/18 06:47 EKG [ELECTROCARDIOGRAM] Routine Comment: Mode Of Transportation: PORTABLE Reason For Exam: tachycardic, Fingerstick Blood Sugar Results: 124 Review of Systems - Review of Systems Systems not reviewed;Unavailable: Acuity of Condition Critical Care Progress Note - Nutrition Nutrition: Nutrition Category Date Time Status NPO Diet [DIET] Diets 07/25/18 Breakfast Active Assessment/Plan - Assessment and Plan (Free Text) Assessment: This is a 52 yo female with PMH of DM2 and hypercholesterolemia who presented to with cough, post-tussive emesis, and malaise x2-3 weeks. She was admitted to the ICU for respiratory failure and acute renal failure. Of note, patient was CODE BLUE on 07/10 (V-tach). Remains intubated after failing extubation, as patient vomited just hours after extubation. Currently with tracheostomy (performed by Dr. Melchor.) Patient is hemodynamically stable, and is status-post PEG placement with Dr. Murray and GI Fellow Dr. Amaya. Tracheostomy collar placed; patient tolerated well. Plan Neuro Anoxic brain injury - Hemodynamically stable - Discontinue: Modafinil 100mg PO Daily (due to agitation in PM) Agitation (resolved) - Discontinued: valproic acid 500mg liquid BID Pulm Chronic Hypoxic Respiratory Failure secondary to pulmonary congestion, renal failure * Status-post trach * CXR shows congestion and R lower lobe infiltrate * Continue bronchodilators * Trach collar trials daily - Goal SaO2 > 92% and paO2 > 55 * FiO2 titrated down to 30% (for goal PO2/FiO2 ratio > 300) * CT angiogram obtained 07/26 to rule out PE -- Negative for PE. - Duonebs 2 ml INH RQ4 - Status-post tracheostomy 07/[address] Melchor CV Hypotension - Normotensive - Discontinued: Levophed - Discontinued: Midodrine - Cardiac arrest from unknown etiology - Cardiology consulted. Appreciate recs. - Repeat ECHO from shows left ventricular thrombus; - Doppler show LLE DVT, right cephalic vein thrombus - Discontinued: Heparin drip - Continue Eliquis 5mg PO BID Daily - Continue daily aspirin 81 mg, crestor 2.5 mg PO HS - Discontinued propranolol 5mg PO TID CHADsVASc Score= 3 * Stroke risk 3.2% per year * 4.6% risk of stroke/TIA/systemic embolism - PICC line placed MSK - OOB as tolerated with assistance - Early Mobilization highly recommended - PT/OT - Discontinue central line (right subclavian) - PICC line order placed GI - Continue Tube Feedings: Vital 1.2 tube feeds Max Rate #35 - Protonix 40 mg IV daily - Dr. Murray Consulted: recommendations appreciated - Pelvic/ trasnvaginal ultrasound performed; revealed thickened endometrial stripe (Please see full report for more detail - OB consulted (Dr. Macias) - CA-125 > 450 - Per OBGYN recommendations; patient is to undergo further work-up as an outpatient - Patient's states patient still has regular menstrual cycles monthly - Monitor H/H Renal - Acute renal failure resolving - Avoid nephrotoxic drugs Heme: - Anemia: Hgb; improved - No acute issues - Continue to monitor H/H Endo - ISS for coverage, q6h - Increased Lantus 10mg Q12 --> Lantus 15mg Q12 - Continue Methimazole 20mg PO Q8 - FSH LH and Prolactin Infectious Disease - Discontinued: Merrem 1 gm daily - Discontinued: vancomycin 1 gm daily - Negative cultures - ID following, appreciate all recs Dispo: tracheostomy collar today, tracheostomy placed 07/24 FEN: NPO, on Tube Feeds Access: Peripheral IVs, right subclavian TLC, ETT, OGT Consults: Palliative, Endo, Nephro, Cardio, Neuro, Cardio, GI Ppx: Protonix for GI, SCDs Code status: FULL Next of kin: Martina Isaacs () Prognosis: Guarded Patient seen, reviewed, and case discussed with attending, Dr. Neville Gonzalez PGY1 <Errol Lozada - Last Filed: 08/08/18 18:14> CCU Objective - Vital Signs / Intake & Output Vital Signs (Last 4 hours): Vital Signs Pulse Resp BP Pulse Ox 08/08/18 17:15 83 25 H 111/79 96 08/08/18 17:00 82 34 H 97 08/08/18 16:15 85 14 104/75 98 08/08/18 16:00 79 19 100 08/08/18 15:28 85 26 H 113/70 97 08/08/18 15:00 85 34 H 98 Intake and Output (Last 8hrs): Intake & Output 08/08/18 08/08/18 08/08/18 06:59 14:59 22:59 Intake Total 500 400 150 Output Total 100 0 0 Balance 400 400 150 Weight 100 lb 6.4 oz Intake: Tube Feeding 400 400 150 Other 100 Output: Urine 100 Urine, Voided 100 Emesis 0 0 Other: # Voids Urine, Voided 0 0 110 # Bowel Movements 0 0 0 - Medications Active Medications: Active Medications Generic Name Dose Route Start Last Admin Trade Name Freq PRN Reason Stop Dose Admin Acetaminophen 650 mg 07/28/18 13:39 08/05/18 21:35 Tylenol 325mg Tab PEG 650 mg Q6 PRN Administration Pain, moderate (4-7) Albuterol/Ipratropium 3 ml 07/28/18 16:34 08/06/18 19:45 Duoneb 3 Mg/0.5 Mg (3 Ml) Ud INH 3 ml RQ4 PRN Administration Shortness of Breath Apixaban 5 mg 07/31/18 18:00 08/08/18 17:11 Eliquis PO 5 mg BID MANOLO Administration Ascorbic Acid 1,000 mg 07/24/18 10:00 08/08/18 10:56 Vitamin C 500 Mg Tab NG 1,000 mg DAILY MANOLO Administration Aspirin 81 mg 07/17/18 10:00 08/08/18 10:55 Aspirin Chewable GT 81 mg DAILY MANOLO Administration Bacitracin 1 gm 08/05/18 22:00 08/08/18 17:11 Bacitracin TOP 1 appl BID MANOLO Administration Insulin Aspart 0 unit 07/11/18 08:28 08/08/18 12:18 Novolog SC 2 units Q6 MANOLO Administration Protocol Insulin Glargine 15 unit 08/02/18 22:00 08/08/18 10:56 Lantus SC 15 u Q12 MANOLO Administration Lactobacillus Acidophilus 1 cap 07/08/18 20:00 08/08/18 10:00 Bacid Acidophilus PO 1 cap Q12H MANOLO Administration Methimazole 20 mg 07/27/18 14:00 08/08/18 15:00 Tapazole PO 20 mg Q8 MANOLO Administration Modafinil 100 mg 08/02/18 10:00 08/07/18 09:17 Provigil PEG Not Given DAILY MANOLO Multivitamins 1 tab 08/06/18 10:00 08/08/18 10:56 Hexavitamin PEG 1 tab DAILY MANOLO Administration Pantoprazole Sodium 40 mg 07/20/18 10:00 08/08/18 10:58 Protonix Susp PO 40 mg DAILY MANOLO Administration Propranolol HCl 5 mg 08/08/18 10:00 08/08/18 17:11 Inderal PO 5 mg TID MANOLO Administration Vitamin A 1 ea 07/28/18 18:00 08/08/18 17:12 Vitamin A & D Oint Ud Foilpak TOP 1 ea BID MANOLO Administration - Patient Studies Lab Studies: Microbiology Studies 07/10/18 11:01 Mycobacterial Culture - Preliminary Other: Please Indicate Lab Studies 08/08/18 08/08/18 08/08/18 Range/Units 11: 06:26 06:08 WBC (4.8-10.8) K/uL RBC (3.80-5.20) Mil/uL Hgb (11.0-16.0) g/dL Hct (34.0-47.0) % MCV (81.0-99.0) fL MCH (27.0-31.0) pg MCHC (33.0-37.0) g/dL RDW (11.5-14.5) % Plt Count (130-400) K/uL MPV (7.2-11.7) fL Neut % (Auto) (50.0-75.0) % Lymph % (Auto) (20.0-40.0) % Coke % (Auto) (0.0-10.0) % Eos % (Auto) (0.0-4.0) % Baso % (Auto) (0.0-2.0) % Neut # (Auto) (1.8-7.0) K/uL Lymph # (Auto) (1.0-4.3) K/uL Coke # (Auto) (0.0-0.8) K/uL Eos # (Auto) (0.0-0.7) K/uL Baso # (Auto) (0.0-0.2) K/uL Sodium 143 (132-148) mmol/L Potassium 4.1 (3.6-5.2) mmol/L Chloride 111 H (98-107) mmol/L Carbon Dioxide 22 (22-30) mmol/L Anion Gap 14 (10-20) BUN 31 H (7-17) mg/dL Creatinine 0.9 (0.7-1.2) mg/dL Est GFR ( Amer) > 60 Est GFR (Non-Af Amer) > 60 POC Glucose (mg/dL) 162 H 124 H (65-110) mg/dL Random Glucose 118 H (65-105) mg/dL Calcium 9.8 (8.6-10.4) mg/dl Phosphorus 4.2 (2.5-4.5) mg/dL Magnesium 2.5 H (1.6-2.3) mg/dL Total Bilirubin 0.9 (0.2-1.3) mg/dL AST 40 H (14-36) U/L ALT 65 H (9-52) U/L Alkaline Phosphatase 326 H D (38-126) U/L Total Protein 7.1 (6.3-8.3) g/dL Albumin 3.2 L (3.5-5.0) g/dL Globulin 3.9 (2.2-3.9) gm/dL Albumin/Globulin Ratio 0.8 L (1.0-2.1) CA 125 Antigen (0-35) U/mL 08/08/18 08/07/18 08/07/18 Range/Units 06:08 23:27 20:31 WBC 9.4 (4.8-10.8) K/uL RBC 3.14 L (3.80-5.20) Mil/uL Hgb 9.3 L (11.0-16.0) g/dL Hct 27.7 L (34.0-47.0) % MCV 88.3 (81.0-99.0) fL MCH 29.6 (27.0-31.0) pg MCHC 33.5 (33.0-37.0) g/dL RDW 14.7 H (11.5-14.5) % Plt Count 361 (130-400) K/uL MPV 8.7 (7.2-11.7) fL Neut % (Auto) 63.8 (50.0-75.0) % Lymph % (Auto) 22.1 (20.0-40.0) % Coke % (Auto) 9.3 (0.0-10.0) % Eos % (Auto) 3.9 (0.0-4.0) % Baso % (Auto) 0.9 (0.0-2.0) % Neut # (Auto) 6.0 (1.8-7.0) K/uL Lymph # (Auto) 2.1 (1.0-4.3) K/uL Coke # (Auto) 0.9 H (0.0-0.8) K/uL Eos # (Auto) 0.4 (0.0-0.7) K/uL Baso # (Auto) 0.1 (0.0-0.2) K/uL Sodium (132-148) mmol/L Potassium (3.6-5.2) mmol/L Chloride (98-107) mmol/L Carbon Dioxide (22-30) mmol/L Anion Gap (10-20) BUN (7-17) mg/dL Creatinine (0.7-1.2) mg/dL Est GFR ( Amer) Est GFR (Non-Af Amer) POC Glucose (mg/dL) 249 H (65-110) mg/dL Random Glucose (65-105) mg/dL Calcium (8.6-10.4) mg/dl Phosphorus (2.5-4.5) mg/dL Magnesium (1.6-2.3) mg/dL Total Bilirubin (0.2-1.3) mg/dL AST (14-36) U/L ALT (9-52) U/L Alkaline Phosphatase (38-126) U/L Total Protein (6.3-8.3) g/dL Albumin (3.5-5.0) g/dL Globulin (2.2-3.9) gm/dL Albumin/Globulin Ratio (1.0-2.1) CA 125 Antigen 497 H (0-35) U/mL Laboratory Results - last 24 hr 08/07/18 08/07/18 08/08/18 20:31 23:27 06:08 WBC 9.4 RBC 3.14 L Hgb 9.3 L Hct 27.7 L MCV 88.3 MCH 29.6 MCHC 33.5 RDW 14.7 H Plt Count 361 MPV 8.7 Neut % (Auto) 63.8 Lymph % (Auto) 22.1 Coke % (Auto) 9.3 Eos % (Auto) 3.9 Baso % (Auto) 0.9 Neut # (Auto) 6.0 Lymph # (Auto) 2.1 Coke # (Auto) 0.9 H Eos # (Auto) 0.4 Baso # (Auto) 0.1 Sodium Potassium Chloride Carbon Dioxide Anion Gap BUN Creatinine Est GFR ( Amer) Est GFR (Non-Af Amer) POC Glucose (mg/dL) 249 H Random Glucose Calcium Phosphorus Magnesium Total Bilirubin AST ALT Alkaline Phosphatase Total Protein Albumin Globulin Albumin/Globulin Ratio CA 125 Antigen 497 H 08/08/18 08/08/18 08/08/18 06:08 06:26 11:31 WBC RBC Hgb Hct MCV MCH MCHC RDW Plt Count MPV Neut % (Auto) Lymph % (Auto) Coke % (Auto) Eos % (Auto) Baso % (Auto) Neut # (Auto) Lymph # (Auto) Coke # (Auto) Eos # (Auto) Baso # (Auto) Sodium 143 Potassium 4.1 Chloride 111 H Carbon Dioxide 22 Anion Gap 14 BUN 31 H Creatinine 0.9 Est GFR ( Amer) > 60 Est GFR (Non-Af Amer) > 60 POC Glucose (mg/dL) 124 H 162 H Random Glucose 118 H Calcium 9.8 Phosphorus 4.2 Magnesium 2.5 H Total Bilirubin 0.9 AST 40 H ALT 65 H Alkaline Phosphatase 326 H D Total Protein 7.1 Albumin 3.2 L Globulin 3.9 Albumin/Globulin Ratio 0.8 L CA 125 Antigen EKG/Cardiology Studies: Cardiology / EKG Studies 08/08/18 06:47 EKG [ELECTROCARDIOGRAM] Routine Comment: Mode Of Transportation: PORTABLE Reason For Exam: tachycardic, Critical Care Progress Note - Nutrition Nutrition: Nutrition Category Date Time Status NPO Diet [DIET] Diets 07/25/18 Breakfast Active Attending/Attestation - Attestation I have personally seen and examined this patient.: Yes I have fully participated in the care of the patient.: Yes I have reviewed all pertinent clinical information: Yes Notes (Text): 08/08/18 18:13 patient seen and examined in the intensive care unit. On trach collar tolerating for many hours Continue PEG feeding Stop modafinil Physical therapy
--- NOTE | 2018-08-08 13:36 | RAD ---
Date of service: 08/08/2018 HISTORY: Trach COMPARISON: 07/31/2018 FINDINGS: LUNGS: No active pulmonary disease. PLEURA: No significant pleural effusion identified, no pneumothorax apparent. CARDIOVASCULAR: No aortic atherosclerotic calcification present. Normal cardiac size. Tracheostomy tube noted. OSSEOUS STRUCTURES: No significant abnormalities. VISUALIZED UPPER ABDOMEN: Normal. OTHER FINDINGS: None. IMPRESSION: No active disease.
[2018-08-08] MEDS: Albuterol-Ipratrop 3 mg / 0.5 (3 ml) UD INH PRN (20:08)
[2018-08-09] MEDS: (Novolog) Insulin Aspart, Recombinant 100 u/ml 10 ml vial SC SCH ×4 (00:15→18:17)
[2018-08-09 06:07] LABS: ARTERIAL BLOOD GAS HCO3 24.4 mmol/L (21-28); ARTERIAL BLOOD GAS O2 SAT 99.5 % (95-98); ARTERIAL BLOOD GAS PCO2 21 mm/Hg (35-45); ARTERIAL BLOOD GAS PH 7.59 (7.35-7.45); ARTERIAL BLOOD GAS PO2 126 mm/Hg (80-100); ARTERIAL BLOOD GAS TCO2 20.7 mmol/L (22-28)
[2018-08-09 06:29] LABS: BASO # 0.1 K/uL (0.0-0.2); BASO % 1.4 % (0.0-2.0); EOS # 0.4 K/uL (0.0-0.7); EOS % 4.9 % (0.0-4.0); HEMOGLOBIN 8.6 g/dL (11.0-16.0); LYMPH % 23.9 % (20.0-40.0); MEAN CELL VOLUME 88.1 fL (81.0-99.0); MEAN CORPUSCULAR HEMOGLOBIN 29.2 pg (27.0-31.0); MEAN CORPUSCULAR HGB CONC 33.2 g/dL (33.0-37.0); MEAN PLATELET VOLUME 8.9 fL (7.2-11.7); MONO # 0.6 K/uL (0.0-0.8); MONO % 7.7 % (0.0-10.0); NEUT # 5.2 K/uL (1.8-7.0); NEUT % 62.1 % (50.0-75.0); NRBC % 0.1 % (0.0-2.0); RBC 2.94 Mil/uL (3.80-5.20); RED CELL DISTRIBUTION WIDTH 15.1 % (11.5-14.5); WHITE BLOOD COUNT 8.4 K/uL (4.8-10.8)
[2018-08-09 06:39] LABS: ALB/GLOB RATIO 0.8 (1.0-2.1); ALBUMIN 3.1 g/dL (3.5-5.0); ALT/SGPT 66 U/L (9-52); AST/SGOT 44 U/L (14-36); BLOOD UREA NITROGEN 43 mg/dL (7-17); CALCIUM 9.4 mg/dl (8.6-10.4); GFR NON-AFRICAN AMERICAN > 60
[2018-08-09] MEDS: Lactobacillus Acidophilus 500 MU Cap PO SCH ×2 (11:15→20:21)
[2018-08-09] MEDS: Bacitracin Ointment 30 GM TUBE TOP SCH ×2 (11:15→18:19)
[2018-08-09] MEDS: (Lantus) Insulin Glargine, Recombinant SC SCH ×2 (11:16→21:42)
[2018-08-09] MEDS: Propranolol 5 mg Tab PO SCH ×3 (11:16→18:16)
[2018-08-09] MEDS: Multiple Vitamins Tab PEG SCH (11:16)
[2018-08-09] MEDS: Pantoprazole 40 mg Susp UD PO SCH (11:17)
[2018-08-09] MEDS: Vitamins A & D Oint UD Foilpak TOP SCH ×2 (11:17→18:18)
[2018-08-09 11:57] LABS: ABG ALLEN TEST POS; ARTERIAL BLOOD GAS HCO3 23.6 mmol/L (21-28); ARTERIAL BLOOD GAS HEMOGLOBIN 8.8 g/dL (11.7-17.4); ARTERIAL BLOOD GAS O2 SAT 98.1 % (95-98); ARTERIAL BLOOD GAS PCO2 37 mm/Hg (35-45); ARTERIAL BLOOD GAS PO2 81 mm/Hg (80-100)
--- NOTE | 2018-08-09 13:16 | CP.CCUPN ---
<Brayan Gonzalez - Last Filed: 08/09/18 13:13> CCU Subjective - Physician Review Events Since Last Encounter (Free Text): 08/09/18 13:14 No acute events overnight Subjective (Free Text): 08/09/18 13:13 PGY1 Critical Care Progress Note for Dr. Carrillo Patient seen and evaluated this morning. at bedside. Patient is alert and able to follow 1-step commands. Patient is sitting up in chair today. Patient is currently with PEG, Tracheostomy, and PICC line. Patient placed on Trach collar yesterday and tolerated well for approximately 5 hours. No bleeding. No acute issues. ROS could not be obtained due to clinical condition. Critical Care Time Spent (in minutes): 35 CCU Objective - Vital Signs / Intake & Output Vital Signs (Last 4 hours): Vital Signs Temp Pulse Resp BP Pulse Ox 08/09/18 12:06 78 34 H 116/70 91 L 08/09/18 12:00 97.5 F L 75 29 H 90 L 08/09/18 11:06 97 H 21 128/68 100 08/09/18 11:00 83 19 98 08/09/18 10:06 88 23 121/74 98 08/09/18 10:00 87 36 H 100 08/09/18 09:27 85 17 109/64 99 Intake and Output (Last 8hrs): Intake & Output 08/08/18 08/09/18 08/09/18 22:59 06:59 14:59 Intake Total 400 400 350 Output Total 0 Balance 400 400 350 Weight 103 lb 1.6 oz Intake: Intake, IV Amount 0 0 0 Left PICC 0 0 0 Tube Feeding 400 400 200 Other 150 Output: Emesis 0 Other: # Voids Urine, Voided 100 # Bowel Movements 1 - Physical Exam Head: Positive for: Atraumatic, Normocephalic Pupils: Positive for: PERRL. Negative for: Sluggish, Pinpoint Extroacular Muscles: Positive for: EOMI. Negative for: Gaze Palsy Conjunctiva: Positive for: Normal. Negative for: Injected, Icteric Mouth: Positive for: Moist Mucous Membranes Nose (External): Positive for: Atraumatic. Negative for: Abrasion, Contusion, Laceration Nose (Internal): Positive for: No Active Bleeding. Negative for: Epistaxis Neck: Positive for: Normal Range of Motion, Trachea Midline. Negative for: JVD Respiratory/Chest: Positive for: Good Air Exchange, Rhonchi (mild ronchi in bilateral bases), Other (trach). Negative for: Wheezes, Rales Cardiovascular: Positive for: Normal S1, S2, Peripheal Pulses Present, Tachycar dic. Negative for: Regular Rate and Rhythm Abdomen: Positive for: Normal Bowel Sounds. Negative for: Tenderness, Distention, Rebound, Guarding Upper Extremity: Positive for: Normal Inspection, NORMAL PULSES. Negative for: Cyanosis, Edema Lower Extremity: Positive for: Normal Inspection. Negative for: Edema, CALF TENDERNESS Neurological: Positive for: Other Skin: Positive for: Warm, Dry, Normal Color Psychiatric: Positive for: Alert - Medications Active Medications: Active Medications Generic Name Dose Route Start Last Admin Trade Name Freq PRN Reason Stop Dose Admin Acetaminophen 650 mg 07/28/18 13:39 08/05/18 21:35 Tylenol 325mg Tab PEG 650 mg Q6 PRN Administration Pain, moderate (4-7) Albuterol/Ipratropium 3 ml 07/28/18 16:34 08/08/18 20:08 Duoneb 3 Mg/0.5 Mg (3 Ml) Ud INH 3 ml RQ4 PRN Administration Shortness of Breath Apixaban 5 mg 07/31/18 18:00 08/09/18 11:23 Eliquis PO 5 mg BID MANOLO Administration Ascorbic Acid 1,000 mg 07/24/18 10:00 08/09/18 11:17 Vitamin C 500 Mg Tab NG 1,000 mg DAILY MANOLO Administration Aspirin 81 mg 07/17/18 10:00 08/09/18 11:15 Aspirin Chewable GT 81 mg DAILY MANOLO Administration Bacitracin 1 gm 08/05/18 22:00 08/09/18 11:15 Bacitracin TOP 1 appl BID MANOLO Administration Insulin Aspart 0 unit 07/11/18 08:28 08/09/18 12:11 Novolog SC 2 units Q6 MANOLO Administration Protocol Insulin Glargine 15 unit 08/02/18 22:00 08/09/18 11:16 Lantus SC 15 u Q12 MANOLO Administration Lactobacillus Acidophilus 1 cap 07/08/18 20:00 08/09/18 11:15 Bacid Acidophilus PO 1 cap Q12H MANOLO Administration Methimazole 20 mg 07/27/18 14:00 08/09/18 06:09 Tapazole PO 20 mg Q8 MANOLO Administration Modafinil 100 mg 08/02/18 10:00 08/07/18 09:17 Provigil PEG Not Given DAILY MANOLO Multivitamins 1 tab 08/06/18 10:00 08/09/18 11:16 Hexavitamin PEG 1 tab DAILY MANOLO Administration Pantoprazole Sodium 40 mg 07/20/18 10:00 08/09/18 11:17 Protonix Susp PO 40 mg DAILY MANOLO Administration Propranolol HCl 5 mg 08/08/18 10:00 08/09/18 11:16 Inderal PO 5 mg TID MANOLO Administration Quetiapine Fumarate 25 mg 08/09/18 13:00 08/09/18 12:35 Seroquel PO 25 mg DAILY MANOLO Administration Vitamin A 1 ea 07/28/18 18:00 08/09/18 11:17 Vitamin A & D Oint Ud Foilpak TOP 1 ea BID MANOLO Administration - Patient Studies Lab Studies: Microbiology Studies 07/10/18 11:01 Mycobacterial Culture - Preliminary Other: Please Indicate Lab Studies 08/09/18 08/09/18 08/09/18 Range/Units 11:23 11:20 06:01 WBC (4.8-10.8) K/uL RBC (3.80-5.20) Mil/uL Hgb (11.0-16.0) g/dL Hct (34.0-47.0) % MCV (81.0-99.0) fL MCH (27.0-31.0) pg MCHC (33.0-37.0) g/dL RDW (11.5-14.5) % Plt Count (130-400) K/uL MPV (7.2-11.7) fL Neut % (Auto) (50.0-75.0) % Lymph % (Auto) (20.0-40.0) % [place] % (Auto) (0.0-10.0) % Eos % (Auto) (0.0-4.0) % Baso % (Auto) (0.0-2.0) % Neut # (Auto) (1.8-7.0) K/uL Lymph # (Auto) (1.0-4.3) K/uL [place] # (Auto) (0.0-0.8) K/uL Eos # (Auto) (0.0-0.7) K/uL Baso # (Auto) (0.0-0.2) K/uL Puncture Site Lra pCO2 37 (35-45) mm/Hg pO2 81 (80-100) mm/Hg HCO3 23.6 (21-28) mmol/L ABG pH 7.40 (7.35-7.45) ABG Total CO2 24.0 (22-28) mmol/L ABG O2 Saturation 98.1 H (95-98) % ABG Base Excess -1.7 (-2.0-3.0) mmol/L ABG Hemoglobin 8.8 L (11.7-17.4) g/dL ABG Carboxyhemoglobin 2.3 H (0.5-1.5) % POC ABG HHb (Measured) 1.8 (0.0-5.0) % ABG Methemoglobin 0.9 (0.0-3.0) % Kevon Test Pos A-a O2 Difference 87.0 mm/Hg Respiratory Index 1.1 Hgb O2 Saturation 95.1 (95.0-98.0) % Vent Mode Mechanical Rate FiO2 30.0 % Tidal Volume PEEP Sodium 143 (132-148) mmol/L Potassium 4.1 (3.6-5.2) mmol/L Chloride 111 H (98-107) mmol/L Carbon Dioxide 21 L (22-30) mmol/L Anion Gap 15 (10-20) BUN 43 H (7-17) mg/dL Creatinine 0.9 (0.7-1.2) mg/dL Est GFR ( Amer) > 60 Est GFR (Non-Af Amer) > 60 POC Glucose (mg/dL) 192 H (65-110) mg/dL Random Glucose 141 H (65-105) mg/dL Calcium 9.4 (8.6-10.4) mg/dl Magnesium 2.5 H (1.6-2.3) mg/dL Total Bilirubin 0.6 (0.2-1.3) mg/dL AST 44 H (14-36) U/L ALT 66 H (9-52) U/L Alkaline Phosphatase 301 H (38-126) U/L Total Protein 6.8 (6.3-8.3) g/dL Albumin 3.1 L (3.5-5.0) g/dL Globulin 3.7 (2.2-3.9) gm/dL Albumin/Globulin Ratio 0.8 L (1.0-2.1) 08/09/18 08/09/18 08/09/18 Range/Units 06:01 05:50 05:29 WBC 8.4 (4.8-10.8) K/uL RBC 2.94 L (3.80-5.20) Mil/uL Hgb 8.6 L (11.0-16.0) g/dL Hct 25.9 L (34.0-47.0) % MCV 88.1 (81.0-99.0) fL MCH 29.2 (27.0-31.0) pg MCHC 33.2 (33.0-37.0) g/dL RDW 15.1 H (11.5-14.5) % Plt Count 407 H (130-400) K/uL MPV 8.9 (7.2-11.7) fL Neut % (Auto) 62.1 (50.0-75.0) % Lymph % (Auto) 23.9 (20.0-40.0) % [place] % (Auto) 7.7 (0.0-10.0) % Eos % (Auto) 4.9 H (0.0-4.0) % Baso % (Auto) 1.4 (0.0-2.0) % Neut # (Auto) 5.2 (1.8-7.0) K/uL Lymph # (Auto) 2.0 (1.0-4.3) K/uL [place] # (Auto) 0.6 (0.0-0.8) K/uL Eos # (Auto) 0.4 (0.0-0.7) K/uL Baso # (Auto) 0.1 (0.0-0.2) K/uL Puncture Site L brac pCO2 21 L (35-45) mm/Hg pO2 126 H (80-100) mm/Hg HCO3 24.4 (21-28) mmol/L ABG pH 7.59 H (7.35-7.45) ABG Total CO2 20.7 L (22-28) mmol/L ABG O2 Saturation 99.5 H (95-98) % ABG Base Excess -0.7 (-2.0-3.0) mmol/L ABG Hemoglobin 9.0 L (11.7-17.4) g/dL ABG Carboxyhemoglobin 1.8 H (0.5-1.5) % POC ABG HHb (Measured) 0.5 (0.0-5.0) % ABG Methemoglobin 1.2 (0.0-3.0) % Kevon Test Na A-a O2 Difference 62.0 mm/Hg Respiratory Index 0.5 Hgb O2 Saturation 96.5 (95.0-98.0) % Vent Mode Prvc Mechanical Rate 15 FiO2 30.0 % Tidal Volume 400 PEEP 5 Sodium (132-148) mmol/L Potassium (3.6-5.2) mmol/L Chloride (98-107) mmol/L Carbon Dioxide (22-30) mmol/L Anion Gap (10-20) BUN (7-17) mg/dL Creatinine (0.7-1.2) mg/dL Est GFR ( Amer) Est GFR (Non-Af Amer) POC Glucose (mg/dL) 164 H (65-110) mg/dL Random Glucose (65-105) mg/dL Calcium (8.6-10.4) mg/dl Magnesium (1.6-2.3) mg/dL Total Bilirubin (0.2-1.3) mg/dL AST (14-36) U/L ALT (9-52) U/L Alkaline Phosphatase (38-126) U/L Total Protein (6.3-8.3) g/dL Albumin (3.5-5.0) g/dL Globulin (2.2-3.9) gm/dL Albumin/Globulin Ratio (1.0-2.1) 08/08/18 08/08/18 Range/Units 23:56 17:49 WBC (4.8-10.8) K/uL RBC (3.80-5.20) Mil/uL Hgb (11.0-16.0) g/dL Hct (34.0-47.0) % MCV (81.0-99.0) fL MCH (27.0-31.0) pg MCHC (33.0-37.0) g/dL RDW (11.5-14.5) % Plt Count (130-400) K/uL MPV (7.2-11.7) fL Neut % (Auto) (50.0-75.0) % Lymph % (Auto) (20.0-40.0) % [place] % (Auto) (0.0-10.0) % Eos % (Auto) (0.0-4.0) % Baso % (Auto) (0.0-2.0) % Neut # (Auto) (1.8-7.0) K/uL Lymph # (Auto) (1.0-4.3) K/uL [place] # (Auto) (0.0-0.8) K/uL Eos # (Auto) (0.0-0.7) K/uL Baso # (Auto) (0.0-0.2) K/uL Puncture Site pCO2 (35-45) mm/Hg pO2 (80-100) mm/Hg HCO3 (21-28) mmol/L ABG pH (7.35-7.45) ABG Total CO2 (22-28) mmol/L ABG O2 Saturation (95-98) % ABG Base Excess (-2.0-3.0) mmol/L ABG Hemoglobin (11.7-17.4) g/dL ABG Carboxyhemoglobin (0.5-1.5) % POC ABG HHb (Measured) (0.0-5.0) % ABG Methemoglobin (0.0-3.0) % Kevon Test A-a O2 Difference mm/Hg Respiratory Index Hgb O2 Saturation (95.0-98.0) % Vent Mode Mechanical Rate FiO2 % Tidal Volume PEEP Sodium (132-148) mmol/L Potassium (3.6-5.2) mmol/L Chloride (98-107) mmol/L Carbon Dioxide (22-30) mmol/L Anion Gap (10-20) BUN (7-17) mg/dL Creatinine (0.7-1.2) mg/dL Est GFR ( Amer) Est GFR (Non-Af Amer) POC Glucose (mg/dL) 200 H 246 H (65-110) mg/dL Random Glucose (65-105) mg/dL Calcium (8.6-10.4) mg/dl Magnesium (1.6-2.3) mg/dL Total Bilirubin (0.2-1.3) mg/dL AST (14-36) U/L ALT (9-52) U/L Alkaline Phosphatase (38-126) U/L Total Protein (6.3-8.3) g/dL Albumin (3.5-5.0) g/dL Globulin (2.2-3.9) gm/dL Albumin/Globulin Ratio (1.0-2.1) Laboratory Results - last 24 hr 08/08/18 08/08/18 08/09/18 17:49 23:56 05:29 WBC RBC Hgb Hct MCV MCH MCHC RDW Plt Count MPV Neut % (Auto) Lymph % (Auto) [place] % (Auto) Eos % (Auto) Baso % (Auto) Neut # (Auto) Lymph # (Auto) [place] # (Auto) Eos # (Auto) Baso # (Auto) Puncture Site L brac pCO2 21 L pO2 126 H HCO3 24.4 ABG pH 7.59 H ABG Total CO2 20.7 L ABG O2 Saturation 99.5 H ABG Base Excess -0.7 ABG Hemoglobin 9.0 L ABG Carboxyhemoglobin 1.8 H POC ABG HHb (Measured) 0.5 ABG Methemoglobin 1.2 Kevon Test Na A-a O2 Difference 62.0 Respiratory Index 0.5 Hgb O2 Saturation 96.5 Vent Mode Prvc Mechanical Rate 15 FiO2 30.0 Tidal Volume 400 PEEP 5 Sodium Potassium Chloride Carbon Dioxide Anion Gap BUN Creatinine Est GFR ( Amer) Est GFR (Non-Af Amer) POC Glucose (mg/dL) 246 H 200 H Random Glucose Calcium Magnesium Total Bilirubin AST ALT Alkaline Phosphatase Total Protein Albumin Globulin Albumin/Globulin Ratio 08/09/18 08/09/18 08/09/18 05:50 06:01 06:01 WBC 8.4 RBC 2.94 L Hgb 8.6 L Hct 25.9 L MCV 88.1 MCH 29.2 MCHC 33.2 RDW 15.1 H Plt Count 407 H MPV 8.9 Neut % (Auto) 62.1 Lymph % (Auto) 23.9 [place] % (Auto) 7.7 Eos % (Auto) 4.9 H Baso % (Auto) 1.4 Neut # (Auto) 5.2 Lymph # (Auto) 2.0 [place] # (Auto) 0.6 Eos # (Auto) 0.4 Baso # (Auto) 0.1 Puncture Site pCO2 pO2 HCO3 ABG pH ABG Total CO2 ABG O2 Saturation ABG Base Excess ABG Hemoglobin ABG Carboxyhemoglobin POC ABG HHb (Measured) ABG Methemoglobin Kevon Test A-a O2 Difference Respiratory Index Hgb O2 Saturation Vent Mode Mechanical Rate FiO2 Tidal Volume PEEP Sodium 143 Potassium 4.1 Chloride 111 H Carbon Dioxide 21 L Anion Gap 15 BUN 43 H Creatinine 0.9 Est GFR ( Amer) > 60 Est GFR (Non-Af Amer) > 60 POC Glucose (mg/dL) 164 H Random Glucose 141 H Calcium 9.4 Magnesium 2.5 H Total Bilirubin 0.6 AST 44 H ALT 66 H Alkaline Phosphatase 301 H Total Protein 6.8 Albumin 3.1 L Globulin 3.7 Albumin/Globulin Ratio 0.8 L 08/09/18 08/09/18 11:20 11:23 WBC RBC Hgb Hct MCV MCH MCHC RDW Plt Count MPV Neut % (Auto) Lymph % (Auto) [place] % (Auto) Eos % (Auto) Baso % (Auto) Neut # (Auto) Lymph # (Auto) [place] # (Auto) Eos # (Auto) Baso # (Auto) Puncture Site Lra pCO2 37 pO2 81 HCO3 23.6 ABG pH 7.40 ABG Total CO2 24.0 ABG O2 Saturation 98.1 H ABG Base Excess -1.7 ABG Hemoglobin 8.8 L ABG Carboxyhemoglobin 2.3 H POC ABG HHb (Measured) 1.8 ABG Methemoglobin 0.9 Kevon Test Pos A-a O2 Difference 87.0 Respiratory Index 1.1 Hgb O2 Saturation 95.1 Vent Mode Mechanical Rate FiO2 30.0 Tidal Volume PEEP Sodium Potassium Chloride Carbon Dioxide Anion Gap BUN Creatinine Est GFR ( Amer) Est GFR (Non-Af Amer) POC Glucose (mg/dL) 192 H Random Glucose Calcium Magnesium Total Bilirubin AST ALT Alkaline Phosphatase Total Protein Albumin Globulin Albumin/Globulin Ratio Fingerstick Blood Sugar Results: 192 Critical Care Progress Note - Nutrition Nutrition: Nutrition Category Date Time Status NPO Diet [DIET] Diets 07/25/18 Breakfast Active Assessment/Plan - Assessment and Plan (Free Text) Assessment: This is a 52 yo female with PMH of DM2 and hypercholesterolemia who presented to with cough, post-tussive emesis, and malaise x2-3 weeks. She was admitted to the ICU for respiratory failure and acute renal failure. Of note, patient was CODE BLUE on 07/10 (V-tach). Remains intubated after failing extubation, as patient vomited just hours after extubation. Currently with tracheostomy (pe rformed by Dr. Melchor.) Patient is hemodynamically stable, and is status-post PEG placement with Dr. Murray and GI Fellow Dr. Amaya. Plan Neuro Anoxic brain injury - Hemodynamically stable - Discontinued: Modafinil 100mg PO Daily (due to agitation in PM) Agitation (resolved) - Discontinued: valproic acid 500mg liquid BID - Start Seroquel 25mg PO daily Pulm Chronic Hypoxic Respiratory Failure secondary to pulmonary congestion, renal failure * Status-post trach * CXR shows congestion and R lower lobe infiltrate * Continue bronchodilators * Trach collar trials daily - Goal SaO2 > 92% and paO2 > 55 * FiO2 titrated down to 30% (for goal PO2/FiO2 ratio > 300) * CT angiogram obtained 07/26 to rule out PE -- Negative for PE. - Duonebs 2 ml INH RQ4 - Status-post tracheostomy 07/[address] Melchor CV Hypotension - Normotensive - Discontinued: Levophed - Discontinued: Midodrine - Cardiac arrest from unknown etiology - Cardiology consulted. Appreciate recs. - Repeat ECHO from shows left ventricular thrombus; - Doppler show LLE DVT, right cephalic vein thrombus - Discontinued: Heparin drip - Continue Eliquis 5mg PO BID Daily - Continue daily aspirin 81 mg, crestor 2.5 mg PO HS - Discontinued propranolol 5mg PO TID CHADsVASc Score= 3 * Stroke risk 3.2% per year * 4.6% risk of stroke/TIA/systemic embolism - PICC line placed MSK - OOB as tolerated with assistance - Early Mobilization highly recommended - PT/OT - Discontinue central line (right subclavian) - PICC line order placed GI - Continue Tube Feedings: Vital 1.2 tube feeds Max Rate #35 - Protonix 40 mg IV daily - Dr. Murray Consulted: recommendations appreciated - Pelvic/ trasnvaginal ultrasound performed; revealed thickened endometrial stripe (Please see full report for more detail - OB consulted (Dr. Macias) - CA-125 > 450 - Per OBGYN recommendations; patient is to undergo further work-up as an outpatient - Patient's states patient still has regular menstrual cycles monthly - Monitor H/H Renal - Acute renal failure resolving - Avoid nephrotoxic drugs Heme: - Anemia: Hgb; improved - No acute issues - Continue to monitor H/H Endo - ISS for coverage, q6h - Increased Lantus 10mg Q12 --> Lantus 15mg Q12 - Continue Methimazole 20mg PO Q8 - FSH LH and Prolactin Infectious Disease - Discontinued: Merrem 1 gm daily - Discontinued: vancomycin 1 gm daily - Negative cultures - ID following, appreciate all recs Dispo: tracheostomy collar today, tracheostomy placed 07/24 FEN: NPO, on Tube Feeds Access: Peripheral IVs, right subclavian TLC, ETT, OGT Consults: Palliative, Endo, Nephro, Cardio, Neuro, Cardio, GI Ppx: Protonix for GI, SCDs Code status: FULL Next of kin: Martina Isaacs () Prognosis: Guarded Patient seen, reviewed, and case discussed with attending, Dr. Neville Gonzalez PGY1 <Errol Lozada S - Last Filed: 08/09/18 17:33> CCU Objective - Vital Signs / Intake & Output Intake and Output (Last 8hrs): Intake & Output 08/09/18 08/09/18 08/09/18 06:59 14:59 22:59 Intake Total 400 350 Balance 400 350 Weight 103 lb 1.6 oz Intake: Intake, IV Amount 0 0 Left PICC 0 0 Tube Feeding 400 200 Other 150 - Medications Active Medications: Active Medications Generic Name Dose Route Start Last Admin Trade Name Freq PRN Reason Stop Dose Admin Acetaminophen 650 mg 07/28/18 13:39 08/05/18 21:35 Tylenol 325mg Tab PEG 650 mg Q6 PRN Administration Pain, moderate (4-7) Albuterol/Ipratropium 3 ml 07/28/18 16:34 08/08/18 20:08 Duoneb 3 Mg/0.5 Mg (3 Ml) Ud INH 3 ml RQ4 PRN Administration Shortness of Breath Apixaban 5 mg 07/31/18 18:00 08/09/18 11:23 Eliquis PO 5 mg BID MANOLO Administration Ascorbic Acid 1,000 mg 07/24/18 10:00 08/09/18 11:17 Vitamin C 500 Mg Tab NG 1,000 mg DAILY MANOLO Administration Aspirin 81 mg 07/17/18 10:00 08/09/18 11:15 Aspirin Chewable GT 81 mg DAILY MANOLO Administration Bacitracin 1 gm 08/05/18 22:00 08/09/18 11:15 Bacitracin TOP 1 appl BID MANOLO Administration Insulin Aspart 0 unit 07/11/18 08:28 08/09/18 12:11 Novolog SC 2 units Q6 MANOLO Administration Protocol Insulin Glargine 15 unit 08/02/18 22:00 08/09/18 11:16 Lantus SC 15 u Q12 MANOLO Administration Lactobacillus Acidophilus 1 cap 07/08/18 20:00 08/09/18 11:15 Bacid Acidophilus PO 1 cap Q12H MANOLO Administration Methimazole 20 mg 07/27/18 14:00 08/09/18 15:00 Tapazole PO 20 mg Q8 MANOLO Administration Modafinil 100 mg 08/02/18 10:00 08/07/18 09:17 Provigil PEG Not Given DAILY MANOLO Multivitamins 1 tab 08/06/18 10:00 08/09/18 11:16 Hexavitamin PEG 1 tab DAILY MANOLO Administration Pantoprazole Sodium 40 mg 07/20/18 10:00 08/09/18 11:17 Protonix Susp PO 40 mg DAILY MANOLO Administration Propranolol HCl 5 mg 08/08/18 10:00 08/09/18 15:57 Inderal PO Not Given TID [facility] Quetiapine Fumarate 25 mg 08/09/18 13:00 08/09/18 12:35 Seroquel PO 25 mg DAILY MANOLO Administration Vitamin A 1 ea 07/28/18 18:00 08/09/18 11:17 Vitamin A & D Oint Ud Foilpak TOP 1 ea BID MANOLO Administration - Patient Studies Lab Studies: Lab Studies 08/09/18 08/09/18 08/09/18 Range/Units 11:23 11:20 06:01 WBC (4.8-10.8) K/uL RBC (3.80-5.20) Mil/uL Hgb (11.0-16.0) g/dL Hct (34.0-47.0) % MCV (81.0-99.0) fL MCH (27.0-31.0) pg MCHC (33.0-37.0) g/dL RDW (11.5-14.5) % Plt Count (130-400) K/uL MPV (7.2-11.7) fL Neut % (Auto) (50.0-75.0) % Lymph % (Auto) (20.0-40.0) % [place] % (Auto) (0.0-10.0) % Eos % (Auto) (0.0-4.0) % Baso % (Auto) (0.0-2.0) % Neut # (Auto) (1.8-7.0) K/uL Lymph # (Auto) (1.0-4.3) K/uL [place] # (Auto) (0.0-0.8) K/uL Eos # (Auto) (0.0-0.7) K/uL Baso # (Auto) (0.0-0.2) K/uL Puncture Site Lra pCO2 37 (35-45) mm/Hg pO2 81 (80-100) mm/Hg HCO3 23.6 (21-28) mmol/L ABG pH 7.40 (7.35-7.45) ABG Total CO2 24.0 (22-28) mmol/L ABG O2 Saturation 98.1 H (95-98) % ABG Base Excess -1.7 (-2.0-3.0) mmol/L ABG Hemoglobin 8.8 L (11.7-17.4) g/dL ABG Carboxyhemoglobin 2.3 H (0.5-1.5) % POC ABG HHb (Measured) 1.8 (0.0-5.0) % ABG Methemoglobin 0.9 (0.0-3.0) % Kevon Test Pos A-a O2 Difference 87.0 mm/Hg Respiratory Index 1.1 Hgb O2 Saturation 95.1 (95.0-98.0) % Vent Mode Mechanical Rate FiO2 30.0 % Tidal Volume PEEP Sodium 143 (132-148) mmol/L Potassium 4.1 (3.6-5.2) mmol/L Chloride 111 H (98-107) mmol/L Carbon Dioxide 21 L (22-30) mmol/L Anion Gap 15 (10-20) BUN 43 H (7-17) mg/dL Creatinine 0.9 (0.7-1.2) mg/dL Est GFR ( Amer) > 60 Est GFR (Non-Af Amer) > 60 POC Glucose (mg/dL) 192 H (65-110) mg/dL Random Glucose 141 H (65-105) mg/dL Calcium 9.4 (8.6-10.4) mg/dl Magnesium 2.5 H (1.6-2.3) mg/dL Total Bilirubin 0.6 (0.2-1.3) mg/dL AST 44 H (14-36) U/L ALT 66 H (9-52) U/L Alkaline Phosphatase 301 H (38-126) U/L Total Protein 6.8 (6.3-8.3) g/dL Albumin 3.1 L (3.5-5.0) g/dL Globulin 3.7 (2.2-3.9) gm/dL Albumin/Globulin Ratio 0.8 L (1.0-2.1) 08/09/18 08/09/18 08/09/18 Range/Units 06:01 05:50 05:29 WBC 8.4 (4.8-10.8) K/uL RBC 2.94 L (3.80-5.20) Mil/uL Hgb 8.6 L (11.0-16.0) g/dL Hct 25.9 L (34.0-47.0) % MCV 88.1 (81.0-99.0) fL MCH 29.2 (27.0-31.0) pg MCHC 33.2 (33.0-37.0) g/dL RDW 15.1 H (11.5-14.5) % Plt Count 407 H (130-400) K/uL MPV 8.9 (7.2-11.7) fL Neut % (Auto) 62.1 (50.0-75.0) % Lymph % (Auto) 23.9 (20.0-40.0) % [place] % (Auto) 7.7 (0.0-10.0) % Eos % (Auto) 4.9 H (0.0-4.0) % Baso % (Auto) 1.4 (0.0-2.0) % Neut # (Auto) 5.2 (1.8-7.0) K/uL Lymph # (Auto) 2.0 (1.0-4.3) K/uL [place] # (Auto) 0.6 (0.0-0.8) K/uL Eos # (Auto) 0.4 (0.0-0.7) K/uL Baso # (Auto) 0.1 (0.0-0.2) K/uL Puncture Site L brac pCO2 21 L (35-45) mm/Hg pO2 126 H (80-100) mm/Hg HCO3 24.4 (21-28) mmol/L ABG pH 7.59 H (7.35-7.45) ABG Total CO2 20.7 L (22-28) mmol/L ABG O2 Saturation 99.5 H (95-98) % ABG Base Excess -0.7 (-2.0-3.0) mmol/L ABG Hemoglobin 9.0 L (11.7-17.4) g/dL ABG Carboxyhemoglobin 1.8 H (0.5-1.5) % POC ABG HHb (Measured) 0.5 (0.0-5.0) % ABG Methemoglobin 1.2 (0.0-3.0) % [place] Test Na A-a O2 Difference 62.0 mm/Hg Respiratory Index 0.5 Hgb O2 Saturation 96.5 (95.0-98.0) % Vent Mode Prvc Mechanical Rate 15 FiO2 30.0 % Tidal Volume 400 PEEP 5 Sodium (132-148) mmol/L Potassium (3.6-5.2) mmol/L Chloride (98-107) mmol/L Carbon Dioxide (22-30) mmol/L Anion Gap (10-20) BUN (7-17) mg/dL Creatinine (0.7-1.2) mg/dL Est GFR ( Amer) Est GFR (Non-Af Amer) POC Glucose (mg/dL) 164 H (65-110) mg/dL Random Glucose (65-105) mg/dL Calcium (8.6-10.4) mg/dl Magnesium (1.6-2.3) mg/dL Total Bilirubin (0.2-1.3) mg/dL AST (14-36) U/L ALT (9-52) U/L Alkaline Phosphatase (38-126) U/L Total Protein (6.3-8.3) g/dL Albumin (3.5-5.0) g/dL Globulin (2.2-3.9) gm/dL Albumin/Globulin Ratio (1.0-2.1) 08/08/18 08/08/18 Range/Units 23:56 17:49 WBC (4.8-10.8) K/uL RBC (3.80-5.20) Mil/uL Hgb (11.0-16.0) g/dL Hct (34.0-47.0) % MCV (81.0-99.0) fL MCH (27.0-31.0) pg MCHC (33.0-37.0) g/dL RDW (11.5-14.5) % Plt Count (130-400) K/uL MPV (7.2-11.7) fL Neut % (Auto) (50.0-75.0) % Lymph % (Auto) (20.0-40.0) % [place] % (Auto) (0.0-10.0) % Eos % (Auto) (0.0-4.0) % Baso % (Auto) (0.0-2.0) % Neut # (Auto) (1.8-7.0) K/uL Lymph # (Auto) (1.0-4.3) K/uL [place] # (Auto) (0.0-0.8) K/uL Eos # (Auto) (0.0-0.7) K/uL Baso # (Auto) (0.0-0.2) K/uL Puncture Site pCO2 (35-45) mm/Hg pO2 (80-100) mm/Hg HCO3 (21-28) mmol/L ABG pH (7.35-7.45) ABG Total CO2 (22-28) mmol/L ABG O2 Saturation (95-98) % ABG Base Excess (-2.0-3.0) mmol/L ABG Hemoglobin (11.7-17.4) g/dL ABG Carboxyhemoglobin (0.5-1.5) % POC ABG HHb (Measured) (0.0-5.0) % ABG Methemoglobin (0.0-3.0) % [place] Test A-a O2 Difference mm/Hg Respiratory Index Hgb O2 Saturation (95.0-98.0) % Vent Mode Mechanical Rate FiO2 % Tidal Volume PEEP Sodium (132-148) mmol/L Potassium (3.6-5.2) mmol/L Chloride (98-107) mmol/L Carbon Dioxide (22-30) mmol/L Anion Gap (10-20) BUN (7-17) mg/dL Creatinine (0.7-1.2) mg/dL Est GFR ( Amer) Est GFR (Non-Af Amer) POC Glucose (mg/dL) 200 H 246 H (65-110) mg/dL Random Glucose (65-105) mg/dL Calcium (8.6-10.4) mg/dl Magnesium (1.6-2.3) mg/dL Total Bilirubin (0.2-1.3) mg/dL AST (14-36) U/L ALT (9-52) U/L Alkaline Phosphatase (38-126) U/L Total Protein (6.3-8.3) g/dL Albumin (3.5-5.0) g/dL Globulin (2.2-3.9) gm/dL Albumin/Globulin Ratio (1.0-2.1) Laboratory Results - last 24 hr 08/08/18 08/08/18 08/09/18 17:49 23:56 05:29 WBC RBC Hgb Hct MCV MCH MCHC RDW Plt Count MPV Neut % (Auto) Lymph % (Auto) [place] % (Auto) Eos % (Auto) Baso % (Auto) Neut # (Auto) Lymph # (Auto) [place] # (Auto) Eos # (Auto) Baso # (Auto) Puncture Site L brac pCO2 21 L pO2 126 H HCO3 24.4 ABG pH 7.59 H ABG Total CO2 20.7 L ABG O2 Saturation 99.5 H ABG Base Excess -0.7 ABG Hemoglobin 9.0 L ABG Carboxyhemoglobin 1.8 H POC ABG HHb (Measured) 0.5 ABG Methemoglobin 1.2 [place] Test Na A-a O2 Difference 62.0 Respiratory Index 0.5 Hgb O2 Saturation 96.5 Vent Mode Prvc Mechanical Rate 15 FiO2 30.0 Tidal Volume 400 PEEP 5 Sodium Potassium Chloride Carbon Dioxide Anion Gap BUN Creatinine Est GFR ( Amer) Est GFR (Non-Af Amer) POC Glucose (mg/dL) 246 H 200 H Random Glucose Calcium Magnesium Total Bilirubin AST ALT Alkaline Phosphatase Total Protein Albumin Globulin Albumin/Globulin Ratio 08/09/18 08/09/18 08/09/18 05:50 06:01 06:01 WBC 8.4 RBC 2.94 L Hgb 8.6 L Hct 25.9 L MCV 88.1 MCH 29.2 MCHC 33.2 RDW 15.1 H Plt Count 407 H MPV 8.9 Neut % (Auto) 62.1 Lymph % (Auto) 23.9 [place] % (Auto) 7.7 Eos % (Auto) 4.9 H Baso % (Auto) 1.4 Neut # (Auto) 5.2 Lymph # (Auto) 2.0 [place] # (Auto) 0.6 Eos # (Auto) 0.4 Baso # (Auto) 0.1 Puncture Site pCO2 pO2 HCO3 ABG pH ABG Total CO2 ABG O2 Saturation ABG Base Excess ABG Hemoglobin ABG Carboxyhemoglobin POC ABG HHb (Measured) ABG Methemoglobin [place] Test A-a O2 Difference Respiratory Index Hgb O2 Saturation Vent Mode Mechanical Rate FiO2 Tidal Volume PEEP Sodium 143 Potassium 4.1 Chloride 111 H Carbon Dioxide 21 L Anion Gap 15 BUN 43 H Creatinine 0.9 Est GFR ( Amer) > 60 Est GFR (Non-Af Amer) > 60 POC Glucose (mg/dL) 164 H Random Glucose 141 H Calcium 9.4 Magnesium 2.5 H Total Bilirubin 0.6 AST 44 H ALT 66 H Alkaline Phosphatase 301 H Total Protein 6.8 Albumin 3.1 L Globulin 3.7 Albumin/Globulin Ratio 0.8 L 08/09/18 08/09/18 11:20 11:23 WBC RBC Hgb Hct MCV MCH MCHC RDW Plt Count MPV Neut % (Auto) Lymph % (Auto) [place] % (Auto) Eos % (Auto) Baso % (Auto) Neut # (Auto) Lymph # (Auto) [place] # (Auto) Eos # (Auto) Baso # (Auto) Puncture Site Lra pCO2 37 pO2 81 HCO3 23.6 ABG pH 7.40 ABG Total CO2 24.0 ABG O2 Saturation 98.1 H ABG Base Excess -1.7 ABG Hemoglobin 8.8 L ABG Carboxyhemoglobin 2.3 H POC ABG HHb (Measured) 1.8 ABG Methemoglobin 0.9 [place] Test Pos A-a O2 Difference 87.0 Respiratory Index 1.1 Hgb O2 Saturation 95.1 Vent Mode Mechanical Rate FiO2 30.0 Tidal Volume PEEP Sodium Potassium Chloride Carbon Dioxide Anion Gap BUN Creatinine Est GFR ( Amer) Est GFR (Non-Af Amer) POC Glucose (mg/dL) 192 H Random Glucose Calcium Magnesium Total Bilirubin AST ALT Alkaline Phosphatase Total Protein Albumin Globulin Albumin/Globulin Ratio Critical Care Progress Note - Nutrition Nutrition: Nutrition Category Date Time Status NPO Diet [DIET] Diets 07/25/18 Breakfast Active Attending/Attestation - Attestation I have personally seen and examined this patient.: Yes I have fully participated in the care of the patient.: Yes I have reviewed all pertinent clinical information: Yes Notes (Text): 08/09/18 17:32 patient seen and examined in the intensive care unit patient is on trach collar since morning continue physical therapy Continue PEG feeding Case discussed with
--- NOTE | 2018-08-09 16:13 | CP.PCM.PN ---
Subjective - Date & Time of Evaluation Date of Evaluation: 08/09/18 Time of Evaluation: 15:40 - Subjective Subjective: Medical Attending Note: Patient seen and examined. Patient underwent trach collar trial. Patient is sleeping at beside. Unable to ROS secondary to clinical condition. Her is at bedside, reports he has been speaking with her. I did speak with nurse to speak with licensed master social worker so they can touch base with 's insurance. Objective - Vital Signs/Intake and Output Vital Signs (last 24 hours): Temp Pulse Resp BP Pulse Ox 97.5 F L 78 34 H 116/70 91 L 08/09/18 12:00 08/09/18 12:06 08/09/18 12:06 08/09/18 12:06 08/09/18 12:06 Intake and Output: 08/09/18 08/09/18 06:59 18:59 Intake Total 600 350 Balance 600 350 - Medications Medications: Current Medications Acetaminophen (Tylenol 325mg Tab) 650 mg PEG Q6 PRN PRN Reason: Pain, moderate (4-7) Last Admin: 08/05/18 21:35 Dose: 650 mg Albuterol/Ipratropium (Duoneb 3 Mg/0.5 Mg (3 Ml) Ud) 3 ml INH RQ4 PRN PRN Reason: Shortness of Breath Last Admin: 08/08/18 20:08 Dose: 3 ml Apixaban (Eliquis) 5 mg PO BID [facility] Last Admin: 08/09/18 11:23 Dose: 5 mg Ascorbic Acid (Vitamin C 500 Mg Tab) 1,000 mg NG DAILY [facility] Last Admin: 08/09/18 11:17 Dose: 1,000 mg Aspirin (Aspirin Chewable) 81 mg GT DAILY [facility] Last Admin: 08/09/18 11:15 Dose: 81 mg Bacitracin (Bacitracin) 1 gm TOP BID [facility] Last Admin: 08/09/18 11:15 Dose: 1 appl Insulin Aspart (Novolog) 0 unit SC Q6 [facility]; Protocol Last Admin: 08/09/18 12:11 Dose: 2 units Insulin Glargine (Lantus) 15 unit SC Q12 [facility] Last Admin: 08/09/18 11:16 Dose: 15 u Lactobacillus Acidophilus (Bacid Acidophilus) 1 cap PO Q12H [facility] Last Admin: 08/09/18 11:15 Dose: 1 cap Methimazole (Tapazole) 20 mg PO Q8 [facility] Last Admin: 08/09/18 15:00 Dose: 20 mg Modafinil (Provigil) 100 mg PEG DAILY [facility] Last Admin: 08/07/18 09:17 Dose: Not Given Multivitamins (Hexavitamin) 1 tab PEG DAILY [facility] Last Admin: 08/09/18 11:16 Dose: 1 tab Pantoprazole Sodium (Protonix Susp) 40 mg PO DAILY [facility] Last Admin: 08/09/18 11:17 Dose: 40 mg Propranolol HCl (Inderal) 5 mg PO TID [facility] Last Admin: 08/09/18 15:57 Dose: Not Given Quetiapine Fumarate (Seroquel) 25 mg PO DAILY [facility] Last Admin: 08/09/18 12:35 Dose: 25 mg Vitamin A (Vitamin A & D Oint Ud Foilpak) 1 ea TOP BID [facility] Last Admin: 08/09/18 11:17 Dose: 1 ea - Labs Labs: 08/09/18 06:01 08/09/18 06:01 PT 17.7 SECONDS (9.7-12.2) H 07/28/18 06:19 INR 1.6 07/28/18 06:19 APTT 52 SECONDS (21-34) H 07/31/18 05:56 - Constitutional Appears: Non-toxic, No Acute Distress, Chronically Ill - Head Exam Head Exam: NORMAL INSPECTION Additional comments: trach collar (clean/dry/intact) - Eye Exam Eye Exam: EOMI - ENT Exam ENT Exam: Mucous Membranes Dry - Respiratory Exam Respiratory Exam: Decreased Breath Sounds, NORMAL BREATHING PATTERN. absent: Rales, Rhonchi, Wheezes - Cardiovascular Exam Cardiovascular Exam: REGULAR RHYTHM, +S1, +S2 - GI/Abdominal Exam GI & Abdominal Exam: Soft, Normal Bowel Sounds. absent: Distended, Firm, Guardi ng, Rigid, Tenderness, Rebound Additional comments: s/p peg (clean/dry/intact) - Extremities Exam Extremities Exam: Pedal Edema. absent: Tenderness Additional comments: muscle atrophy - Skin Skin Exam: Dry, Normal Color, Warm Assessment and Plan (1) Septic shock Status: Acute (2) Acute respiratory failure Status: Acute (3) Urinary tract infection Status: Acute (4) Acute renal failure Status: Acute (5) Aspiration pneumonia Status: Acute (6) Diabetes mellitus Status: Chronic (7) Ventricular arrhythmia Status: Acute (8) Hyperthyroidism Status: Acute (9) Anemia Status: Acute (10) Prophylactic measure Status: Acute Attending/Attestation - Attestation I have personally seen and examined this patient.: Yes I have fully participated in the care of the patient.: Yes I have reviewed all pertinent clinical information, including history, physical exam and plan: Yes Notes (Text): Assessment/plan 1) Septic Shock Pneumonia Urinary Tract Infection Assessment/Plan * Infectious Disease (Dr. Brock) on case-->help appreciated * Tmax: 101.7 F (07/19/18) * Afebrile since * Criteria: leukocytosis, tachycardia * Source: aspiration pneumonia and urinary tract infection * 07/07/18: Urine: E. Coli * 07/09/18: Urine: No growth * 07/07/18: Blood culture: no growth after 5 days X2 * 07/09/18 Blood culture: no growth after 5 days X2 * 07/14/18: blood cultures: no growth to date * 07/14/18: sputum culture: yeast species * 07/14/18: Urine culture: no growth * 07/20/18: Blood culture: no growth after 5 days X2 * 07/20/18: Urine culture: no growth * 07/21/18: No Salmonella, shigella, or campobacter * 07/23/18 Urine culture: no growth * MRSA not detected * Antibiotics * Rocephin 2gm IVPB Q12H (07/14/18 through 07/20/18) * Meropenem 1 gm IV Q8H (active since 07/20/18)-->spoke with ICU Physician Dr. Lozada 08/02/18 and as repeat Chest X Ray 07/31/18 does not show any infiltrates, NO need to restart * Vancomycin 1 gram IVPB Q24H (being held since 07/20/18)-->vancomycin level 7.7-->per id to d/c vancomycin * Off antibiotics 2) Acute Respiratory Failure Pulmonary Edema Bilateral Pleural Effusion and Consolidations Likely Secondary to Aspiration Pneumonia Anoxic Encephalopagty Assessment/Plan * Required reintubated after 2nd fail attempt; patient underwent tracheostomy 07/24/18 * off Solumedrol * Duonebs RQ4H PRN wheezing * MRSA screen: not detected * Sputum culture 07/09/18, 07/12/18, 07/14/18: yeast * Mycoplasma negative * Legionella was negative * Influenza negative * HIV negative * CT Chest 07/15/18: Moderate to large bilateral pleural effusion and associated consolidations, pathcy grround-glass infiltrates/edema noted within bilateral upper lobes * Chest xray (07/24/18): worsening infiltrates, satisfactory position of recently placed tracheostomy device. Satisfactory position of remaining support apparatus including venous access catheter and recently placed nasogastric tube * Rocephin 2gm IVPB Q12H (07/14/18 through 07/20/18) * Meropenem 1 gm IV Q8H (active since 07/20/18)-->will need renewal by ID * Vancomycin 1 gram IVPB Q24H (being held since 07/20/18) discontinued by ID * Bedside Thoracic U/S 07/17/18 did not reveal enough pleural effusion for Thoracentesis and per IR on 07/28/18 nothing to drain * Lasix 20 mg IV Q12H was discontinued 08/03/18 * held Provigil 100 mg PEG 1x/day * Patient is awake all night--->patient was in rapid afib overnight. * Procalcitonin downtrending to 0.75. 3) Anoxic Encephalopathy Ventricular Tachycardia NSTEMI Apical Thrombus LLE DVT Assessment/Plan * Code Blue 07/10: SVT==>VT required amiodarone, magnesium, one shock delivered * Code Blue 07/20: vtach s/p amiodarone, fluid, calcium gluconate, required compressions and shock * Cardiology Dr Francisco on case help appreciated * will need to f/u regarding cath * Echocardiogram (07/07/18): left ventricle systolic function is borderline, ejection fraction is 45-50%, no aortic regurgitation is present, mitral regurgitation is mild. Mild tricuspid regurgitation. mild pulmonary hypertension, mild pulmonic valvular regurgitation * Contrast Echo: Large apical hypokinesis a large 30 x 20 mm soft tissue apical sessile mass suggestive of thrombus overall fraction 40%. Obtain a HUBERT or/consider stress card myopathy if coronary disease is excluded further findings per report * Monitor electrolytes * Eliquis 5 mg PO BID * Aspirin 81 mg PO 1x/day * Propranolol 5mg PO TID restart 08/08/18 * Patient had rapid afib overnight 08/07/18 * Crestor 2.5 mg PO HS * Will need to f/u cardiology in regards to cath 4) Urinary Tract Infection Assessment/Plan * Infectious disease on board help appreciated * 07/07/18: Urine: E. Coli * 07/09/18: Urine: No growth * 07/14/18: Urine culture: No growth * Urine Culture 07/20/18: No growth 5) Diabetes-->chronic Assessment/Plan * HgBA1c: 7.8 * Hypoglycemic protocol * Lantus 15 units subcutaneous at bedtime Q12 6) Acute on Chronic Renal Failure Assessment/Plan * Nephrology (Dr. Hyde) on board--> help appreciated * Patient will likely not need dialysis * Renal function continues to improve 7) Hyperthyroidism? Low TSH, and Free T4 Thyroid Storm Assessment/Plan * Note Thyroid studies taken before amiodarone was given (please advised this is not amiodarone induced her levels were abnormal prior) * Patient does not have prior thyroid history * Endocrinology (Dr. 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 She will need outpatient FNA Bx of the complex Left Lobe cyst (please see full report) * Methimazole 20mg PO TID * Propranolol 5 mg PO TID was discontinued 08/03/18; restart 08/08/18 * Monitor LFTs 8) Anemia Likely Secondary to Chronic Diseases Assessment/Plan * Iron normal, TIBC low, Iron Saturation normal, Ferritin normal * Stool occult blood negative * B12 normal * Folate Normal * Transfused 1 unit PRBC 07/22/18 * Patient is on Eliquis restarted on 07/31/18 given apical thrombus 9) Transminitis-->improving * Likely secondary to Sepsis and Amiodarone (which was discontinued) * Hepatitis serology negative * Slightly elevated from normal on 07/20/18 but could be secondary to [employer]ATIONS SUPER[employer]OR/Code Blue 07/20/18 10) Vitamin D deficiency Assessment plan * 50,000 international units once a week for at least 8-12 weeks started on 07/11/18 11) Thrombocytopenia-->resolved Assessment plan * Sepsis, vs Methimazole? * Fibrinogen elevated * HIT and RUSTY both negative for HIT * Currently normalized 12) 13 mm Left Adrenal Nodule * As seen on CT Chest 07/16/18 * Will need outpatient follow up for cross sectional imaging for better characterization 13) Hypernatremia-->resolved * Free water 250 ml 3x/day via OGT * Na now normal 14) LLE DVT * Eliquis 5 mg PO BID restarted on 07/31/18 * Acute thrombosis of the left common femoral and femoral veins with severe reduction of the venous return on 07/18/18 venous doppler 15) Prophylactic measure * Protonix 40mg PO BID * Lactobacillus 1 cap PO BID * MVI 1x/day * Vitamin C 1,000 NG 1x/day * Trach and Peg * Awaiting cardaic cath * SCD on Right and contraindicated on Left due to DVT * Peg feedings * PICC Line 07/31/18 * Off Precedex * Off Ativan * Note: speak to patient in alexis to assess neurologic status-->she does follow Disposition: Patient does not need cardiac cath; discussed with cardio day before. Patient does not have insurance: please f/u with social/case management to start insurance process for potential LTAC/rehab. She will need significant rehab to regain muscle and strength. Continue attempts to wean off Trach. P atient to have trach collar. No further workup per obgyn.
[2018-08-09] MEDS: Albuterol-Ipratrop 3 mg / 0.5 (3 ml) UD INH PRN (19:30)
--- NOTE | 2018-08-09 19:54 | CARD ---
APPROVED REPORT Date of service: 08/08/2018 EKG Measurement Heart [id number] <Conclusion> Suspect arm lead reversal, interpretation assumes no reversal Atrial fibrillation Nonspecific intraventricular block Lateral infarct, age undetermined Abnormal ECG
[2018-08-10] MEDS: (Novolog) Insulin Aspart, Recombinant 100 u/ml 10 ml vial SC SCH ×4 (00:38→17:57)
[2018-08-10 06:32] LABS: BASO # 0.1 K/uL (0.0-0.2); BASO % 0.8 % (0.0-2.0); EOS # 0.5 K/uL (0.0-0.7); EOS % 6.1 % (0.0-4.0); HEMOGLOBIN 8.1 g/dL (11.0-16.0); LYMPH # 1.5 K/uL (1.0-4.3); LYMPH % 19.7 % (20.0-40.0); MEAN CELL VOLUME 88.2 fL (81.0-99.0); MEAN CORPUSCULAR HEMOGLOBIN 29.5 pg (27.0-31.0); MEAN CORPUSCULAR HGB CONC 33.5 g/dL (33.0-37.0); MEAN PLATELET VOLUME 8.1 fL (7.2-11.7); MONO # 0.7 K/uL (0.0-0.8); MONO % 8.9 % (0.0-10.0); NEUT # 5.1 K/uL (1.8-7.0); NEUT % 64.5 % (50.0-75.0); NRBC % 0.1 % (0.0-2.0); RBC 2.73 Mil/uL (3.80-5.20); RED CELL DISTRIBUTION WIDTH 14.6 % (11.5-14.5); WHITE BLOOD COUNT 7.9 K/uL (4.8-10.8)
[2018-08-10 06:39] LABS: ALB/GLOB RATIO 0.8 (1.0-2.1); ALBUMIN 3.1 g/dL (3.5-5.0); ALT/SGPT 52 U/L (9-52); AST/SGOT 30 U/L (14-36); BLOOD UREA NITROGEN 44 mg/dL (7-17); CALCIUM 9.1 mg/dl (8.6-10.4); GFR NON-AFRICAN AMERICAN 58
[2018-08-10] MEDS: Lactobacillus Acidophilus 500 MU Cap PO SCH ×2 (08:11→22:56)
--- NOTE | 2018-08-10 09:39 | CP.PCM.PN ---
Subjective - Date & Time of Evaluation Date of Evaluation: 08/10/18 Time of Evaluation: 09:40 - Subjective Subjective: Medical Attending Note: Patient seen and examined at bedside. Patient is on trach collar. Unable to ROS secondary to clinical condition. Patients not present at bedside. Objective - Vital Signs/Intake and Output Vital Signs (last 24 hours): Temp Pulse Resp BP Pulse Ox 97.5 F L 98 H 31 H 95/53 L 81 L 08/10/18 08:00 08/10/18 08:01 08/10/18 08:01 08/10/18 08:01 08/10/18 08:01 Intake and Output: 08/10/18 08/10/18 06:59 18:59 Intake Total 600 100 Output Total 400 Balance 200 100 - Medications Medications: Current Medications Acetaminophen (Tylenol 325mg Tab) 650 mg PEG Q6 PRN PRN Reason: Pain, moderate (4-7) Last Admin: 08/05/18 21:35 Dose: 650 mg Albuterol/Ipratropium (Duoneb 3 Mg/0.5 Mg (3 Ml) Ud) 3 ml INH RQ4 PRN PRN Reason: Shortness of Breath Last Admin: 08/09/18 19:30 Dose: 3 ml Apixaban (Eliquis) 5 mg PO BID [facility] Last Admin: 08/09/18 18:17 Dose: 5 mg Ascorbic Acid (Vitamin C 500 Mg Tab) 1,000 mg NG DAILY [facility] Last Admin: 08/09/18 11:17 Dose: 1,000 mg Aspirin (Aspirin Chewable) 81 mg GT DAILY [facility] Last Admin: 08/09/18 11:15 Dose: 81 mg Bacitracin (Bacitracin) 1 gm TOP BID [facility] Last Admin: 08/09/18 18:19 Dose: 1 appl Insulin Aspart (Novolog) 0 unit SC Q6 [facility]; Protocol Last Admin: 08/10/18 06:19 Dose: 4 units Insulin Glargine (Lantus) 15 unit SC Q12 [facility] Last Admin: 08/09/18 21:42 Dose: 15 u Lactobacillus Acidophilus (Bacid Acidophilus) 1 cap PO Q12H [facility] Last Admin: 08/10/18 08:11 Dose: 1 cap Methimazole (Tapazole) 20 mg PO Q8 [facility] Last Admin: 08/10/18 06:24 Dose: 20 mg Modafinil (Provigil) 100 mg PEG DAILY [facility] Last Admin: 08/07/18 09:17 Dose: Not Given Multivitamins (Hexavitamin) 1 tab PEG DAILY [facility] Last Admin: 08/09/18 11:16 Dose: 1 tab Pantoprazole Sodium (Protonix Susp) 40 mg PO DAILY [facility] Last Admin: 08/09/18 11:17 Dose: 40 mg Propranolol HCl (Inderal) 5 mg PO TID [facility] Last Admin: 08/09/18 18:16 Dose: 5 mg Quetiapine Fumarate (Seroquel) 25 mg PO Q12H [facility] Last Admin: 08/10/18 06:26 Dose: 25 mg Vitamin A (Vitamin A & D Oint Ud Foilpak) 1 ea TOP BID [facility] Last Admin: 08/09/18 18:18 Dose: 1 ea - Labs Labs: 08/10/18 06:15 08/10/18 06:15 PT 17.7 SECONDS (9.7-12.2) H 07/28/18 06:19 INR 1.6 07/28/18 06:19 APTT 52 SECONDS (21-34) H 07/31/18 05:56 - Constitutional Appears: Chronically Ill - Head Exam Head Exam: NORMAL INSPECTION Additional comments: s/p trach - Eye Exam Eye Exam: EOMI - ENT Exam ENT Exam: Mucous Membranes Moist - Respiratory Exam Respiratory Exam: Clear to Ausculation Bilateral, NORMAL BREATHING PATTERN. absent: Rales, Rhonchi, Wheezes - Cardiovascular Exam Cardiovascular Exam: REGULAR RHYTHM, +S1, +S2 - GI/Abdominal Exam GI & Abdominal Exam: Soft, Normal Bowel Sounds. absent: Distended, Firm, Guarding, Rigid, Tenderness, Rebound - Extremities Exam Extremities Exam: absent: Pedal Edema, Tenderness Additional comments: muscle atrophy - Neurological Exam Neurological Exam: Awake - Skin Skin Exam: Dry, Intact, Normal Color, Warm Assessment and Plan (1) Septic shock Status: Acute (2) Acute respiratory failure Status: Acute (3) Urinary tract infection Status: Acute (4) Acute renal failure Status: Acute (5) Aspiration pneumonia Status: Acute (6) Diabetes mellitus Status: Chronic (7) Ventricular arrhythmia Status: Acute (8) Hyperthyroidism Status: Acute (9) Anemia Status: Acute (10) Prophylactic measure Status: Acute Attending/Attestation - Attestation I have personally seen and examined this patient.: Yes I have fully participated in the care of the patient.: Yes I have reviewed all pertinent clinical information, including history, physical exam and plan: Yes Notes (Text): 1) Septic Shock Pneumonia Urinary Tract Infection Assessment/Plan * Infectious Disease (Dr. Brock) on case-->help appreciated * Tmax: 101.7 F (07/19/18) * Afebrile since * Criteria: leukocytosis, tachycardia * Source: aspiration pneumonia and urinary tract infection * 07/07/18: Urine: E. Coli * 07/09/18: Urine: No growth * 07/07/18: Blood culture: no growth after 5 days X2 * 07/09/18 Blood culture: no growth after 5 days X2 * 07/14/18: blood cultures: no growth to date * 07/14/18: sputum culture: yeast species * 07/14/18: Urine culture: no growth * 07/20/18: Blood culture: no growth after 5 days X2 * 07/20/18: Urine culture: no growth * 07/21/18: No Salmonella, shigella, or campobacter * 07/23/18 Urine culture: no growth * MRSA not detected * Antibiotics * Rocephin 2gm IVPB Q12H (07/14/18 through 07/20/18) * Meropenem 1 gm IV Q8H (active since 07/20/18)-->spoke with ICU Physician Dr. Lozada 08/02/18 and as repeat Chest X Ray 07/31/18 does not show any infiltrates, NO need to restart * Vancomycin 1 gram IVPB Q24H (being held since 07/20/18)-->vancomycin level 7.7-->per id to d/c vancomycin * Off antibiotics 2) Acute Respiratory Failure Pulmonary Edema Bilateral Pleural Effusion and Consolidations Likely Secondary to Asp iration Pneumonia Anoxic Encephalopagty Assessment/Plan * Required reintubated after 2nd fail attempt; patient underwent tracheostomy 07/24/18 * off Solumedrol * Duonebs RQ4H PRN wheezing * MRSA screen: not detected * Sputum culture 07/09/18, 07/12/18, 07/14/18: yeast * Mycoplasma negative * Legionella was negative * Influenza negative * HIV negative * CT Chest 07/15/18: Moderate to large bilateral pleural effusion and associated consolidations, pathcy grround-glass infiltrates/edema noted within bilateral upper lobes * Chest xray (07/24/18): worsening infiltrates, satisfactory position of recently placed tracheostomy device. Satisfactory position of remaining support apparatus including venous access catheter and recently placed nasogastric tube * Rocephin 2gm IVPB Q12H (07/14/18 through 07/20/18) * Meropenem 1 gm IV Q8H (active since 07/20/18)-->will need renewal by ID * Vancomycin 1 gram IVPB Q24H (being held since 07/20/18) discontinued by ID * Bedside Thoracic U/S 07/17/18 did not reveal enough pleural effusion for Thoracentesis and per IR on 07/28/18 nothing to drain * Lasix 20 mg IV Q12H was discontinued 08/03/18 * held Provigil 100 mg PEG 1x/day * Patient is awake all night--->patient was in rapid afib overnight. * Procalcitonin downtrending to 0.75. 3) Anoxic Encephalopathy Ventricular Tachycardia NSTEMI Apical Thrombus LLE DVT Assessment/Plan * Code Blue 07/10: SVT==>VT required amiodarone, magnesium, one shock delivered * Code Blue 07/20: vtach s/p amiodarone, fluid, calcium gluconate, required compressions and shock * Cardiology Dr Francisco on case help appreciated * No cath needed. * Medical management * Echocardiogram (07/07/18): left ventricle systolic function is borderline, ejection fraction is 45-50%, no aortic regurgitation is present, mitral regurgitation is mild. Mild tricuspid regurgitation. mild pulmonary hypertension, mild pulmonic valvular regurgitation * Contrast Echo: Large apical hypokinesis a large 30 x 20 mm soft tissue apical sessile mass suggestive of thrombus overall fraction 40%. Obtain a HUBERT or/consider stress card myopathy if coronary disease is excluded further findings per report * Monitor electrolytes * Eliquis 5 mg PO BID * Aspirin 81 mg PO 1x/day * Propranolol 5mg PO TID restart 08/08/18 * Patient had rapid afib overnight 08/07/18 * Crestor 2.5 mg PO HS 4) Urinary Tract Infection Assessment/Plan * Infectious disease on board help appreciated * 07/07/18: Urine: E. Coli * 07/09/18: Urine: No growth * 07/14/18: Urine culture: No growth * Urine Culture 07/20/18: No growth 5) Diabetes-->chronic Assessment/Plan * HgBA1c: 7.8 * Hypoglycemic protocol * Lantus 15 units subcutaneous at bedtime Q12 6) Acute on Chronic Renal Failure Assessment/Plan * Nephrology (Dr. Hyde) on board--> help appreciated * Patient will likely not need dialysis * Renal function continues to improve 7) Hyperthyroidism? Low TSH, and Free T4 Thyroid Storm Assessment/Plan * Note Thyroid studies taken before amiodarone was given (please advised this is not amiodarone induced her levels were abnormal prior) * Patient does not have prior thyroid history * Endocrinology (Dr. 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 She will need outpatient FNA Bx of the complex Left Lobe cyst (please see full report) * Methimazole 20mg PO TID * Propranolol 5 mg PO TID was discontinued 08/03/18; restart 08/08/18 * Monitor LFTs 8) Anemia Likely Secondary to Chronic Diseases Assessment/Plan * Iron normal, TIBC low, Iron Saturation normal, Ferritin normal * Stool occult blood negative * B12 normal * Folate Normal * Transfused 1 unit PRBC 07/22/18 * Patient is on Eliquis restarted on 07/31/18 given apical thrombus 9) Transminitis-->improving * Likely secondary to Sepsis and Amiodarone (which was discontinued) * Hepatitis serology negative * Slightly elevated from normal on 07/20/18 but could be secondary to EMBROIDERY OPERATOR/Code Blue 07/20/18 10) Vitamin D deficiency Assessment plan * 50,000 international units once a week for at least 8-12 weeks started on 07/11/18 11) Thrombocytopenia-->resolved Assessment plan * Sepsis, vs Methimazole? * Fibrinogen elevated * HIT and RUSTY both negative for HIT * Currently normalized 12) 13 mm Left Adrenal Nodule * As seen on CT Chest 07/16/18 * Will need outpatient follow up for cross sectional imaging for better characterization 13) Hypernatremia-->resolved * Free water 250 ml 3x/day via OGT * Na now normal 14) LLE DVT * Eliquis 5 mg PO BID restarted on 07/31/18 * Acute thrombosis of the left common femoral and femoral veins with severe reduction of the venous return on 07/18/18 venous doppler 15) Prophylactic measure * Protonix 40mg PO BID * Lactobacillus 1 cap PO BID * MVI 1x/day * Vitamin C 1,000 NG 1x/day * Trach and Peg * SCD on Right and contraindicated on Left due to DVT * Peg feedings * PICC Line 07/31/18 * Off Precedex * Off Ativan * Note: speak to patient in alexis to assess neurologic status-->she does follow Disposition: Patient does not have insurance: please f/u with social/case management to start insurance process for potential LTAC/rehab. She will need significant rehab to regain muscle and strength. Continue attempts to wean off Trach. Patient to have trach collar trials per ICU.
[2018-08-10] MEDS: (Lantus) Insulin Glargine, Recombinant SC SCH ×2 (09:58→22:48)
[2018-08-10] MEDS: Multiple Vitamins Tab PEG SCH (09:58)
[2018-08-10] MEDS: Propranolol 5 mg Tab PO SCH ×3 (09:59→17:50)
[2018-08-10] MEDS: Pantoprazole 40 mg Susp UD PO SCH (09:59)
[2018-08-10] MEDS: Vitamins A & D Oint UD Foilpak TOP SCH ×2 (09:59→17:51)
[2018-08-10] MEDS: Bacitracin Ointment 30 GM TUBE TOP SCH ×2 (10:16→18:40)
[2018-08-10 10:29] LABS: ARTERIAL BLOOD GAS HCO3 25.4 mmol/L (21-28); ARTERIAL BLOOD GAS HEMOGLOBIN 8.3 g/dL (11.7-17.4); ARTERIAL BLOOD GAS O2 SAT 87.9 % (95-98); ARTERIAL BLOOD GAS PCO2 39 mm/Hg (35-45); ARTERIAL BLOOD GAS PH 7.42 (7.35-7.45); ARTERIAL BLOOD GAS PO2 45 mm/Hg (80-100); ARTERIAL BLOOD GAS TCO2 26.5 mmol/L (22-28)
--- NOTE | 2018-08-10 12:43 | CP.CCUPN ---
<Brayan Gonzalez - Last Filed: 08/10/18 12:42> CCU Subjective - Physician Review Events Since Last Encounter (Free Text): 08/10/18 12:42 No acute events overnight Subjective (Free Text): 08/10/18 12:42 PGY1 Critical Care Progress Note for Dr. Hendrix Patient seen and evaluated this morning. at bedside. Patient is alert and able to follow 1-step commands. Patient is sitting up in chair today. Patient is currently with PEG, Tracheostomy, and PICC line. Patient placed on Trach collar and tolerating well. No bleeding. No acute issues. ROS could not be obtained due to clinical condition. Critical Care Time Spent (in minutes): 35 CCU Objective - Vital Signs / Intake & Output Vital Signs (Last 4 hours): Vital Signs Pulse Resp BP Pulse Ox 08/10/18 10:01 104 H 36 H 118/72 95 08/10/18 10:00 100 H 36 H 97 08/10/18 09:01 99 H 33 H 117/66 98 08/10/18 09:00 101 H 21 95 Intake and Output (Last 8hrs): Intake & Output 08/09/18 08/10/18 08/10/18 22:59 06:59 14:59 Intake Total 400 400 320 Output Total 200 200 Balance 200 200 320 Weight 104 lb 3.2 oz Intake: Tube Feeding 400 400 200 Other 120 Output: Urine 200 200 Urine, Voided 200 200 Oral Regurgitation 0 Other: # Voids Urine, Voided 1 # Bowel Movements 1 - Physical Exam Head: Positive for: Atraumatic, Normocephalic Pupils: Positive for: PERRL. Negative for: Sluggish, Pinpoint Extroacular Muscles: Positive for: EOMI. Negative for: Gaze Palsy Conjunctiva: Positive for: Normal. Negative for: Injected, Icteric Mouth: Positive for: Moist Mucous Membranes Nose (External): Positive for: Atraumatic. Negative for: Abrasion, Contusion, Laceration Nose (Internal): Positive for: No Active Bleeding. Negative for: Epistaxis Neck: Positive for: Normal Range of Motion, Trachea Midline. Negative for: JVD Respiratory/Chest: Positive for: Good Air Exchange, Rhonchi (mild ronchi in bilateral bases), Other (trach). Negative for: Wheezes, Rales Cardiovascular: Positive for: Normal S1, S2, Peripheal Pulses Present, Tachycardic. Negative for: Regular Rate and Rhythm Abdomen: Positive for: Normal Bowel Sounds. Negative for: Tenderness, Distentio n, Rebound, Guarding Upper Extremity: Positive for: Normal Inspection, NORMAL PULSES. Negative for: Cyanosis, Edema Lower Extremity: Positive for: Normal Inspection. Negative for: Edema, CALF TENDERNESS Neurological: Positive for: Other Skin: Positive for: Warm, Dry, Normal Color Psychiatric: Positive for: Alert - Medications Active Medications: Active Medications Generic Name Dose Route Start Last Admin Trade Name Freq PRN Reason Stop Dose Admin Acetaminophen 650 mg 07/28/18 13:39 08/05/18 21:35 Tylenol 325mg Tab PEG 650 mg Q6 PRN Administration Pain, moderate (4-7) Albuterol/Ipratropium 3 ml 07/28/18 16:34 08/09/18 19:30 Duoneb 3 Mg/0.5 Mg (3 Ml) Ud INH 3 ml RQ4 PRN Administration Shortness of Breath Apixaban 5 mg 07/31/18 18:00 08/10/18 10:04 Eliquis PO 5 mg BID MANOLO Administration Ascorbic Acid 1,000 mg 07/24/18 10:00 08/10/18 09:59 Vitamin C 500 Mg Tab NG 1,000 mg DAILY MANOLO Administration Aspirin 81 mg 07/17/18 10:00 08/10/18 10:18 Aspirin Chewable GT 81 mg DAILY MANOLO Administration Bacitracin 1 gm 08/05/18 22:00 08/10/18 10:16 Bacitracin TOP 1 appl BID MANOLO Administration Insulin Aspart 0 unit 07/11/18 08:28 08/10/18 12:08 Novolog SC 4 units Q6 MANOLO Administration Protocol Insulin Glargine 15 unit 08/02/18 22:00 08/10/18 09:58 Lantus SC 15 u Q12 MANOLO Administration Lactobacillus Acidophilus 1 cap 07/08/18 20:00 08/10/18 08:11 Bacid Acidophilus PO 1 cap Q12H MANOLO Administration Methimazole 20 mg 07/27/18 14:00 08/10/18 06:24 Tapazole PO 20 mg Q8 MANOLO Administration Modafinil 100 mg 08/02/18 10:00 08/07/18 09:17 Provigil PEG Not Given DAILY MANOLO Multivitamins 1 tab 08/06/18 10:00 08/10/18 09:58 Hexavitamin PEG 1 tab DAILY MANOLO Administration Pantoprazole Sodium 40 mg 07/20/18 10:00 08/10/18 09:59 Protonix Susp PO 40 mg DAILY MANOLO Administration Propranolol HCl 5 mg 08/08/18 10:00 08/10/18 09:59 Inderal PO 5 mg TID MANOLO Administration Quetiapine Fumarate 25 mg 08/09/18 19:00 08/10/18 06:26 Seroquel PO 25 mg Q12H MANOLO Administration Vitamin A 1 ea 07/28/18 18:00 08/10/18 09:59 Vitamin A & D Oint Ud Foilpak TOP 1 ea BID MANOLO Administration - Patient Studies Lab Studies: Lab Studies 08/10/18 08/10/18 08/10/18 Range/Units 10:24 06:15 06:15 WBC 7.9 (4.8-10.8) K/uL RBC 2.73 L (3.80-5.20) Mil/uL Hgb 8.1 L (11.0-16.0) g/dL Hct 24.1 L (34.0-47.0) % MCV 88.2 (81.0-99.0) fL MCH 29.5 (27.0-31.0) pg MCHC 33.5 (33.0-37.0) g/dL RDW 14.6 H (11.5-14.5) % Plt Count 383 (130-400) K/uL MPV 8.1 (7.2-11.7) fL Neut % (Auto) 64.5 (50.0-75.0) % Lymph % (Auto) 19.7 L (20.0-40.0) % Centre % (Auto) 8.9 (0.0-10.0) % Eos % (Auto) 6.1 H (0.0-4.0) % Baso % (Auto) 0.8 (0.0-2.0) % Neut # (Auto) 5.1 (1.8-7.0) K/uL Lymph # (Auto) 1.5 (1.0-4.3) K/uL Centre # (Auto) 0.7 (0.0-0.8) K/uL Eos # (Auto) 0.5 (0.0-0.7) K/uL Baso # (Auto) 0.1 (0.0-0.2) K/uL Puncture Site Lf pCO2 39 (35-45) mm/Hg pO2 45 L (80-100) mm/Hg HCO3 25.4 (21-28) mmol/L ABG pH 7.42 (7.35-7.45) ABG Total CO2 26.5 (22-28) mmol/L ABG O2 Saturation 87.9 L (95-98) % ABG Base Excess 0.8 (-2.0-3.0) mmol/L ABG Hemoglobin 8.3 L (11.7-17.4) g/dL ABG Carboxyhemoglobin 2.5 H (0.5-1.5) % POC ABG HHb (Measured) 11.6 H (0.0-5.0) % ABG Methemoglobin 1.4 (0.0-3.0) % Kevon Test Na A-a O2 Difference 120.0 mm/Hg Respiratory Index 2.7 Hgb O2 Saturation 84.4 L (95.0-98.0) % FiO2 30.0 % Crit Value Called To Dr drew hendrix Crit Value Called By Ty beckett [facility] [place] Crit Value Read Back Y Blood Gas Notified Time 1030 Sodium 144 (132-148) mmol/L Potassium 4.6 (3.6-5.2) mmol/L Chloride 111 H (98-107) mmol/L Carbon Dioxide 25 (22-30) mmol/L Anion Gap 13 (10-20) BUN 44 H (7-17) mg/dL Creatinine 1.0 (0.7-1.2) mg/dL Est GFR ( Amer) > 60 Est GFR (Non-Af Amer) 58 POC Glucose (mg/dL) (65-110) mg/dL Random Glucose 198 H (65-105) mg/dL Calcium 9.1 (8.6-10.4) mg/dl Magnesium 2.5 H (1.6-2.3) mg/dL Total Bilirubin 0.8 (0.2-1.3) mg/dL AST 30 (14-36) U/L ALT 52 D (9-52) U/L Alkaline Phosphatase 297 H (38-126) U/L Total Protein 6.9 (6.3-8.3) g/dL Albumin 3.1 L (3.5-5.0) g/dL Globulin 3.7 (2.2-3.9) gm/dL Albumin/Globulin Ratio 0.8 L (1.0-2.1) 08/10/18 08/09/18 08/09/18 Range/Units 05:59 23:37 17:49 WBC (4.8-10.8) K/uL RBC (3.80-5.20) Mil/uL Hgb (11.0-16.0) g/dL Hct (34.0-47.0) % MCV (81.0-99.0) fL MCH (27.0-31.0) pg MCHC (33.0-37.0) g/dL RDW (11.5-14.5) % Plt Count (130-400) K/uL MPV (7.2-11.7) fL Neut % (Auto) (50.0-75.0) % Lymph % (Auto) (20.0-40.0) % Centre % (Auto) (0.0-10.0) % Eos % (Auto) (0.0-4.0) % Baso % (Auto) (0.0-2.0) % Neut # (Auto) (1.8-7.0) K/uL Lymph # (Auto) (1.0-4.3) K/uL Centre # (Auto) (0.0-0.8) K/uL Eos # (Auto) (0.0-0.7) K/uL Baso # (Auto) (0.0-0.2) K/uL Puncture Site pCO2 (35-45) mm/Hg pO2 (80-100) mm/Hg HCO3 (21-28) mmol/L ABG pH (7.35-7.45) ABG Total CO2 (22-28) mmol/L ABG O2 Saturation (95-98) % ABG Base Excess (-2.0-3.0) mmol/L ABG Hemoglobin (11.7-17.4) g/dL ABG Carboxyhemoglobin (0.5-1.5) % POC ABG HHb (Measured) (0.0-5.0) % ABG Methemoglobin (0.0-3.0) % Kevon Test A-a O2 Difference mm/Hg Respiratory Index Hgb O2 Saturation (95.0-98.0) % FiO2 % Crit Value Called To Crit Value Called By Crit Value Read Back Blood Gas Notified Time Sodium (132-148) mmol/L Potassium (3.6-5.2) mmol/L Chloride (98-107) mmol/L Carbon Dioxide (22-30) mmol/L Anion Gap (10-20) BUN (7-17) mg/dL Creatinine (0.7-1.2) mg/dL Est GFR ( Amer) Est GFR (Non-Af Amer) POC Glucose (mg/dL) 207 H 201 H 208 H (65-110) mg/dL Random Glucose (65-105) mg/dL Calcium (8.6-10.4) mg/dl Magnesium (1.6-2.3) mg/dL Total Bilirubin (0.2-1.3) mg/dL AST (14-36) U/L ALT (9-52) U/L Alkaline Phosphatase (38-126) U/L Total Protein (6.3-8.3) g/dL Albumin (3.5-5.0) g/dL Globulin (2.2-3.9) gm/dL Albumin/Globulin Ratio (1.0-2.1) Laboratory Results - last 24 hr 08/09/18 08/09/18 08/10/18 17:49 23:37 05:59 WBC RBC Hgb Hct MCV MCH MCHC RDW Plt Count MPV Neut % (Auto) Lymph % (Auto) Centre % (Auto) Eos % (Auto) Baso % (Auto) Neut # (Auto) Lymph # (Auto) Centre # (Auto) Eos # (Auto) Baso # (Auto) Puncture Site pCO2 pO2 HCO3 ABG pH ABG Total CO2 ABG O2 Saturation ABG Base Excess ABG Hemoglobin ABG Carboxyhemoglobin POC ABG HHb (Measured) ABG Methemoglobin Kevon Test A-a O2 Difference Respiratory Index Hgb O2 Saturation FiO2 Crit Value Called To Crit Value Called By Crit Value Read Back Blood Gas Notified Time Sodium Potassium Chloride Carbon Dioxide Anion Gap BUN Creatinine Est GFR ( Amer) Est GFR (Non-Af Amer) POC Glucose (mg/dL) 208 H 201 H 207 H Random Glucose Calcium Magnesium Total Bilirubin AST ALT Alkaline Phosphatase Total Protein Albumin Globulin Albumin/Globulin Ratio 08/10/18 08/10/18 08/10/18 06:15 06:15 10:24 WBC 7.9 RBC 2.73 L Hgb 8.1 L Hct 24.1 L MCV 88.2 MCH 29.5 MCHC 33.5 RDW 14.6 H Plt Count 383 MPV 8.1 Neut % (Auto) 64.5 Lymph % (Auto) 19.7 L Centre % (Auto) 8.9 Eos % (Auto) 6.1 H Baso % (Auto) 0.8 Neut # (Auto) 5.1 Lymph # (Auto) 1.5 Centre # (Auto) 0.7 Eos # (Auto) 0.5 Baso # (Auto) 0.1 Puncture Site Lf pCO2 39 pO2 45 L HCO3 25.4 ABG pH 7.42 ABG Total CO2 26.5 ABG O2 Saturation 87.9 L ABG Base Excess 0.8 ABG Hemoglobin 8.3 L ABG Carboxyhemoglobin 2.5 H POC ABG HHb (Measured) 11.6 H ABG Methemoglobin 1.4 Kevon Test Na A-a O2 Difference 120.0 Respiratory Index 2.7 Hgb O2 Saturation 84.4 L FiO2 30.0 Crit Value Called To Dr drew hendrix Crit Value Called By Ty beckett [facility] [place] Crit Value Read Back Y Blood Gas Notified Time 1030 Sodium 144 Potassium 4.6 Chloride 111 H Carbon Dioxide 25 Anion Gap 13 BUN 44 H Creatinine 1.0 Est GFR ( Amer) > 60 Est GFR (Non-Af Amer) 58 POC Glucose (mg/dL) Random Glucose 198 H Calcium 9.1 Magnesium 2.5 H Total Bilirubin 0.8 AST 30 ALT 52 D Alkaline Phosphatase 297 H Total Protein 6.9 Albumin 3.1 L Globulin 3.7 Albumin/Globulin Ratio 0.8 L Fingerstick Blood Sugar Results: 219 Review of Systems - Review of Systems All systems: reviewed and no additional remarkable complaints except Critical Care Progress Note - Nutrition Nutrition: Nutrition Category Date Time Status NPO Diet [DIET] Diets 07/25/18 Breakfast Active Assessment/Plan - Assessment and Plan (Free Text) Assessment: This is a 52 yo female with PMH of DM2 and hypercholesterolemia who presented to with cough, post-tussive emesis, and malaise x2-3 weeks. She was admitted to the ICU for respiratory failure and acute renal failure. Of note, patient was CODE BLUE on 07/10 (V-tach). Remains intubated after failing extubation, as patient vomited just hours after extubation. Currently with tracheostomy (performed by Dr. Melchor.) Patient is hemodynamically stable, and is status-post PEG placement with Dr. Murray and GI Fellow Dr. Amaya. Plan Neuro Anoxic brain injury - Hemodynamically stable - Discontinued: Modafinil 100mg PO Daily (due to agitation in PM) Agitation (resolved) - Discontinued: valproic acid 500mg liquid BID - Start Seroquel 25mg PO daily Pulm Chronic Hypoxic Respiratory Failure secondary to pulmonary congestion, renal failure * Status-post trach * CXR shows congestion and R lower lobe infiltrate * Continue bronchodilators * Trach collar trials daily - Goal SaO2 > 92% and paO2 > 55 * FiO2 titrated down to 30% (for goal PO2/FiO2 ratio > 300) * CT angiogram obtained 07/26 to rule out PE -- Negative for PE. - Duonebs 2 ml INH RQ4 - Status-post tracheostomy 07/[address] Melchor CV Hypotension - Normotensive - Discontinued: Levophed - Discontinued: Midodrine - Cardiac arrest from unknown etiology - Cardiology consulted. Appreciate recs. - Repeat ECHO from shows left ventricular thrombus; - Doppler show LLE DVT, right cephalic vein thrombus - Discontinued: Heparin drip - Continue Eliquis 5mg PO BID Daily - Continue daily aspirin 81 mg, crestor 2.5 mg PO HS - Discontinued propranolol 5mg PO TID CHADsVASc Score= 3 * Stroke risk 3.2% per year * 4.6% risk of stroke/TIA/systemic embolism - PICC line placed MSK - OOB as tolerated with assistance - Early Mobilization highly recommended - PT/OT - Discontinue central line (right subclavian) - PICC line order placed GI - Continue Tube Feedings: Vital 1.2 tube feeds Max Rate #35 - Protonix 40 mg IV daily - Dr. Murray Consulted: recommendations appreciated - Pelvic/ trasnvaginal ultrasound performed; revealed thickened endometrial stripe (Please see full report for more detail - OB consulted (Dr. Macias) - CA-125 > 450 - Per OBGYN recommendations; patient is to undergo further work-up as an outpatient - Patient's states patient still has regular menstrual cycles monthly - Monitor H/H Renal - Acute renal failure resolving - Avoid nephrotoxic drugs Heme: - Anemia: Hgb; improved - No acute issues - Continue to monitor H/H Endo - ISS for coverage, q6h - Increased Lantus 10mg Q12 --> Lantus 15mg Q12 - Continue Methimazole 20mg PO Q8 - FSH LH and Prolactin Infectious Disease - Discontinued: Merrem 1 gm daily - Discontinued: vancomycin 1 gm daily - Negative cultures - ID following, appreciate all recs Dispo: tracheostomy collar today, tracheostomy placed 07/24 FEN: NPO, on Tube Feeds Access: Peripheral IVs, right subclavian TLC, ETT, OGT Consults: Palliative, Endo, Nephro, Cardio, Neuro, Cardio, GI Ppx: Protonix for GI, SCDs Code status: FULL Next of kin: Martina Isaacs () Prognosis: Guarded Patient seen, reviewed, and case discussed with attending, Dr. Hendrix <Dian Hendrix - Last Filed: 08/10/18 13:22> CCU Objective - Vital Signs / Intake & Output Vital Signs (Last 4 hours): Vital Signs Pulse Resp BP Pulse Ox 08/10/18 10:01 104 H 36 H 118/72 95 08/10/18 10:00 100 H 36 H 97 Intake and Output (Last 8hrs): Intake & Output 08/09/18 08/10/18 08/10/18 22:59 06:59 14:59 Intake Total 400 400 320 Output Total 200 200 Balance 200 200 320 Weight 104 lb 3.2 oz Intake: Tube Feeding 400 400 200 Other 120 Output: Urine 200 200 Urine, Voided 200 200 Oral Regurgitation 0 Other: # Voids Urine, Voided 1 # Bowel Movements 1 - Medications Active Medications: Active Medications Generic Name Dose Route Start Last Admin Trade Name Freq PRN Reason Stop Dose Admin Acetaminophen 650 mg 07/28/18 13:39 08/05/18 21:35 Tylenol 325mg Tab PEG 650 mg Q6 PRN Administration Pain, moderate (4-7) Albuterol/Ipratropium 3 ml 07/28/18 16:34 08/09/18 19:30 Duoneb 3 Mg/0.5 Mg (3 Ml) Ud INH 3 ml RQ4 PRN Administration Shortness of Breath Apixaban 5 mg 07/31/18 18:00 08/10/18 10:04 Eliquis PO 5 mg BID MANOLO Administration Ascorbic Acid 1,000 mg 07/24/18 10:00 08/10/18 09:59 Vitamin C 500 Mg Tab NG 1,000 mg DAILY MANOLO Administration Aspirin 81 mg 07/17/18 10:00 08/10/18 10:18 Aspirin Chewable GT 81 mg DAILY MANOLO Administration Bacitracin 1 gm 08/05/18 22:00 08/10/18 10:16 Bacitracin TOP 1 appl BID MANOLO Administration Insulin Aspart 0 unit 07/11/18 08:28 08/10/18 12:08 Novolog SC 4 units Q6 MANOLO Administration Protocol Insulin Glargine 15 unit 08/02/18 22:00 08/10/18 09:58 Lantus SC 15 u Q12 MANOLO Administration Lactobacillus Acidophilus 1 cap 07/08/18 20:00 08/10/18 08:11 Bacid Acidophilus PO 1 cap Q12H MANOLO Administration Methimazole 20 mg 07/27/18 14:00 08/10/18 06:24 Tapazole PO 20 mg Q8 MANOLO Administration Modafinil 100 mg 08/02/18 10:00 08/07/18 09:17 Provigil PEG Not Given DAILY [facility] Multivitamins 1 tab 08/06/18 10:00 08/10/18 09:58 Hexavitamin PEG 1 tab DAILY MANOLO Administration Pantoprazole Sodium 40 mg 07/20/18 10:00 08/10/18 09:59 Protonix Susp PO 40 mg DAILY MANOLO Administration Propranolol HCl 5 mg 08/08/18 10:00 08/10/18 09:59 Inderal PO 5 mg TID MANOLO Administration Quetiapine Fumarate 25 mg 08/09/18 19:00 08/10/18 06:26 Seroquel PO 25 mg Q12H MANOLO Administration Vitamin A 1 ea 07/28/18 18:00 08/10/18 09:59 Vitamin A & D Oint Ud Foilpak TOP 1 ea BID MANOLO Administration - Patient Studies Lab Studies: Lab Studies 08/10/18 08/10/18 08/10/18 Range/Units 10:24 06:15 06:15 WBC 7.9 (4.8-10.8) K/uL RBC 2.73 L (3.80-5.20) Mil/uL Hgb 8.1 L (11.0-16.0) g/dL Hct 24.1 L (34.0-47.0) % MCV 88.2 (81.0-99.0) fL MCH 29.5 (27.0-31.0) pg MCHC 33.5 (33.0-37.0) g/dL RDW 14.6 H (11.5-14.5) % Plt Count 383 (130-400) K/uL MPV 8.1 (7.2-11.7) fL Neut % (Auto) 64.5 (50.0-75.0) % Lymph % (Auto) 19.7 L (20.0-40.0) % Centre % (Auto) 8.9 (0.0-10.0) % Eos % (Auto) 6.1 H (0.0-4.0) % Baso % (Auto) 0.8 (0.0-2.0) % Neut # (Auto) 5.1 (1.8-7.0) K/uL Lymph # (Auto) 1.5 (1.0-4.3) K/uL Centre # (Auto) 0.7 (0.0-0.8) K/uL Eos # (Auto) 0.5 (0.0-0.7) K/uL Baso # (Auto) 0.1 (0.0-0.2) K/uL Puncture Site Lf pCO2 39 (35-45) mm/Hg pO2 45 L (80-100) mm/Hg HCO3 25.4 (21-28) mmol/L ABG pH 7.42 (7.35-7.45) ABG Total CO2 26.5 (22-28) mmol/L ABG O2 Saturation 87.9 L (95-98) % ABG Base Excess 0.8 (-2.0-3.0) mmol/L ABG Hemoglobin 8.3 L (11.7-17.4) g/dL ABG Carboxyhemoglobin 2.5 H (0.5-1.5) % POC ABG HHb (Measured) 11.6 H (0.0-5.0) % ABG Methemoglobin 1.4 (0.0-3.0) % Kevon Test Na A-a O2 Difference 120.0 mm/Hg Respiratory Index 2.7 Hgb O2 Saturation 84.4 L (95.0-98.0) % FiO2 30.0 % Crit Value Called To Dr drew hendrix Crit Value Called By Ty beckett [facility] [place] Crit Value Read Back Y Blood Gas Notified Time 1030 Sodium 144 (132-148) mmol/L Potassium 4.6 (3.6-5.2) mmol/L Chloride 111 H (98-107) mmol/L Carbon Dioxide 25 (22-30) mmol/L Anion Gap 13 (10-20) BUN 44 H (7-17) mg/dL Creatinine 1.0 (0.7-1.2) mg/dL Est GFR ( Amer) > 60 Est GFR (Non-Af Amer) 58 POC Glucose (mg/dL) (65-110) mg/dL Random Glucose 198 H (65-105) mg/dL Calcium 9.1 (8.6-10.4) mg/dl Magnesium 2.5 H (1.6-2.3) mg/dL Total Bilirubin 0.8 (0.2-1.3) mg/dL AST 30 (14-36) U/L ALT 52 D (9-52) U/L Alkaline Phosphatase 297 H (38-126) U/L Total Protein 6.9 (6.3-8.3) g/dL Albumin 3.1 L (3.5-5.0) g/dL Globulin 3.7 (2.2-3.9) gm/dL Albumin/Globulin Ratio 0.8 L (1.0-2.1) 08/10/18 08/09/18 08/09/18 Range/Units 05:59 23:37 17:49 WBC (4.8-10.8) K/uL RBC (3.80-5.20) Mil/uL Hgb (11.0-16.0) g/dL Hct (34.0-47.0) % MCV (81.0-99.0) fL MCH (27.0-31.0) pg MCHC (33.0-37.0) g/dL RDW (11.5-14.5) % Plt Count (130-400) K/uL MPV (7.2-11.7) fL Neut % (Auto) (50.0-75.0) % Lymph % (Auto) (20.0-40.0) % Centre % (Auto) (0.0-10.0) % Eos % (Auto) (0.0-4.0) % Baso % (Auto) (0.0-2.0) % Neut # (Auto) (1.8-7.0) K/uL Lymph # (Auto) (1.0-4.3) K/uL Centre # (Auto) (0.0-0.8) K/uL Eos # (Auto) (0.0-0.7) K/uL Baso # (Auto) (0.0-0.2) K/uL Puncture Site pCO2 (35-45) mm/Hg pO2 (80-100) mm/Hg HCO3 (21-28) mmol/L ABG pH (7.35-7.45) ABG Total CO2 (22-28) mmol/L ABG O2 Saturation (95-98) % ABG Base Excess (-2.0-3.0) mmol/L ABG Hemoglobin (11.7-17.4) g/dL ABG Carboxyhemoglobin (0.5-1.5) % POC ABG HHb (Measured) (0.0-5.0) % ABG Methemoglobin (0.0-3.0) % Kevon Test A-a O2 Difference mm/Hg Respiratory Index Hgb O2 Saturation (95.0-98.0) % FiO2 % Crit Value Called To Crit Value Called By Crit Value Read Back Blood Gas Notified Time Sodium (132-148) mmol/L Potassium (3.6-5.2) mmol/L Chloride (98-107) mmol/L Carbon Dioxide (22-30) mmol/L Anion Gap (10-20) BUN (7-17) mg/dL Creatinine (0.7-1.2) mg/dL Est GFR ( Amer) Est GFR (Non-Af Amer) POC Glucose (mg/dL) 207 H 201 H 208 H (65-110) mg/dL Random Glucose (65-105) mg/dL Calcium (8.6-10.4) mg/dl Magnesium (1.6-2.3) mg/dL Total Bilirubin (0.2-1.3) mg/dL AST (14-36) U/L ALT (9-52) U/L Alkaline Phosphatase (38-126) U/L Total Protein (6.3-8.3) g/dL Albumin (3.5-5.0) g/dL Globulin (2.2-3.9) gm/dL Albumin/Globulin Ratio (1.0-2.1) Laboratory Results - last 24 hr 08/09/18 08/09/18 08/10/18 17:49 23:37 05:59 WBC RBC Hgb Hct MCV MCH MCHC RDW Plt Count MPV Neut % (Auto) Lymph % (Auto) Centre % (Auto) Eos % (Auto) Baso % (Auto) Neut # (Auto) Lymph # (Auto) Centre # (Auto) Eos # (Auto) Baso # (Auto) Puncture Site pCO2 pO2 HCO3 ABG pH ABG Total CO2 ABG O2 Saturation ABG Base Excess ABG Hemoglobin ABG Carboxyhemoglobin POC ABG HHb (Measured) ABG Methemoglobin Kevon Test A-a O2 Difference Respiratory Index Hgb O2 Saturation FiO2 Crit Value Called To Crit Value Called By Crit Value Read Back Blood Gas Notified Time Sodium Potassium Chloride Carbon Dioxide Anion Gap BUN Creatinine Est GFR ( Amer) Est GFR (Non-Af Amer) POC Glucose (mg/dL) 208 H 201 H 207 H Random Glucose Calcium Magnesium Total Bilirubin AST ALT Alkaline Phosphatase Total Protein Albumin Globulin Albumin/Globulin Ratio 08/10/18 08/10/18 08/10/18 06:15 06:15 10:24 WBC 7.9 RBC 2.73 L Hgb 8.1 L Hct 24.1 L MCV 88.2 MCH 29.5 MCHC 33.5 RDW 14.6 H Plt Count 383 MPV 8.1 Neut % (Auto) 64.5 Lymph % (Auto) 19.7 L Centre % (Auto) 8.9 Eos % (Auto) 6.1 H Baso % (Auto) 0.8 Neut # (Auto) 5.1 Lymph # (Auto) 1.5 Centre # (Auto) 0.7 Eos # (Auto) 0.5 Baso # (Auto) 0.1 Puncture Site Lf pCO2 39 pO2 45 L HCO3 25.4 ABG pH 7.42 ABG Total CO2 26.5 ABG O2 Saturation 87.9 L ABG Base Excess 0.8 ABG Hemoglobin 8.3 L ABG Carboxyhemoglobin 2.5 H POC ABG HHb (Measured) 11.6 H ABG Methemoglobin 1.4 Kevon Test Na A-a O2 Difference 120.0 Respiratory Index 2.7 Hgb O2 Saturation 84.4 L FiO2 30.0 Crit Value Called To Dr drew hendrix Crit Value Called By Ty beckett [facility] [place] Crit Value Read Back Y Blood Gas Notified Time 1030 Sodium 144 Potassium 4.6 Chloride 111 H Carbon Dioxide 25 Anion Gap 13 BUN 44 H Creatinine 1.0 Est GFR ( Amer) > 60 Est GFR (Non-Af Amer) 58 POC Glucose (mg/dL) Random Glucose 198 H Calcium 9.1 Magnesium 2.5 H Total Bilirubin 0.8 AST 30 ALT 52 D Alkaline Phosphatase 297 H Total Protein 6.9 Albumin 3.1 L Globulin 3.7 Albumin/Globulin Ratio 0.8 L Critical Care Progress Note - Nutrition Nutrition: Nutrition Category Date Time Status NPO Diet [DIET] Diets 07/25/18 Breakfast Active Assessment/Plan - Assessment and Plan (Free Text) Plan: Above patient seen and examined at bedside. Patient off pressors, off ventilator for 24 hours on trach color -Patient tolerating trach colar -continue tube feeds -Patient remains hemodynamically stable Above resident documents my clinical management and physical exam - Date & Time Date: 08/10/18 Time: 13:22
[2018-08-10] MEDS: Albuterol-Ipratrop 3 mg / 0.5 (3 ml) UD INH PRN (19:39)
[2018-08-11] MEDS: (Novolog) Insulin Aspart, Recombinant 100 u/ml 10 ml vial SC SCH ×4 (00:20→18:14)
[2018-08-11 05:08] LABS: BASO # 0.1 K/uL (0.0-0.2); BASO % 1.3 % (0.0-2.0); EOS # 0.5 K/uL (0.0-0.7); EOS % 5.1 % (0.0-4.0); HEMOGLOBIN 8.3 g/dL (11.0-16.0); LYMPH # 1.9 K/uL (1.0-4.3); LYMPH % 19.5 % (20.0-40.0); MEAN CELL VOLUME 88.6 fL (81.0-99.0); MEAN CORPUSCULAR HEMOGLOBIN 29.7 pg (27.0-31.0); MEAN CORPUSCULAR HGB CONC 33.5 g/dL (33.0-37.0); MEAN PLATELET VOLUME 7.6 fL (7.2-11.7); MONO # 0.8 K/uL (0.0-0.8); MONO % 8.3 % (0.0-10.0); NEUT # 6.4 K/uL (1.8-7.0); NEUT % 65.8 % (50.0-75.0); RBC 2.79 Mil/uL (3.80-5.20); RED CELL DISTRIBUTION WIDTH 14.6 % (11.5-14.5); WHITE BLOOD COUNT 9.7 K/uL (4.8-10.8)
[2018-08-11 06:27] LABS: ALB/GLOB RATIO 0.8 (1.0-2.1); ALBUMIN 3.2 g/dL (3.5-5.0); ALT/SGPT 63 U/L (9-52); AST/SGOT 36 U/L (14-36); BLOOD UREA NITROGEN 41 mg/dL (7-17); CALCIUM 9.5 mg/dl (8.6-10.4); GFR NON-AFRICAN AMERICAN > 60
[2018-08-11] MEDS: Lactobacillus Acidophilus 500 MU Cap PO SCH ×2 (09:15→20:15)
[2018-08-11] MEDS: Multiple Vitamins Tab PEG SCH (09:50)
[2018-08-11] MEDS: Pantoprazole 40 mg Susp UD PO SCH (09:51)
[2018-08-11] MEDS: Propranolol 5 mg Tab PO SCH ×3 (10:00→18:13)
[2018-08-11] MEDS: Bacitracin Ointment 30 GM TUBE TOP SCH ×2 (10:13→18:14)
[2018-08-11] MEDS: Vitamins A & D Oint UD Foilpak TOP SCH ×2 (10:49→18:13)
[2018-08-11] MEDS: (Lantus) Insulin Glargine, Recombinant SC SCH ×2 (10:51→22:44)
--- NOTE | 2018-08-11 13:51 | CP.CCUPN ---
<Brayan Gonzalez - Last Filed: 08/11/18 13:27> CCU Subjective - Physician Review Subjective (Free Text): 08/11/18 13:27 PGY1 Critical Care Progress Note for Dr. Nesbitt Patient seen and evaluated this morning. at bedside. Patient is alert and able to follow 1-step commands. Patient was able to stand up today and bear weight on both feet, per PT. Patient is currently with PEG, Tracheostomy, and PICC line. Patient placed on Trach collar and tolerating well. No bleeding. No acute issues. ROS could not be obtained due to clinical condition. CCU Objective - Vital Signs / Intake & Output Vital Signs (Last 4 hours): Vital Signs Temp Pulse Pulse Ox 08/11/18 11:54 98.2 F 90 98 Intake and Output (Last 8hrs): Intake & Output 08/10/18 08/11/18 08/11/18 22:59 06:59 14:59 Intake Total 330 0 Output Total 700 Balance -370 0 Weight 104 lb 3.2 oz Intake: Tube Feeding 230 0 Other 100 Output: Urine 350 Urine, Voided 350 Stool 350 Other: # Voids Urine, Voided 1 # Bowel Movements 1 - Physical Exam Head: Positive for: Atraumatic, Normocephalic Pupils: Positive for: PERRL. Negative for: Sluggish, Pinpoint Extroacular Muscles: Positive for: EOMI. Negative for: Gaze Palsy Conjunctiva: Positive for: Normal. Negative for: Injected, Icteric Mouth: Positive for: Moist Mucous Membranes Nose (External): Positive for: Atraumatic. Negative for: Abrasion, Contusion, Laceration Nose (Internal): Positive for: No Active Bleeding. Negative for: Epistaxis Neck: Positive for: Normal Range of Motion, Trachea Midline. Negative for: JVD Respiratory/Chest: Positive for: Good Air Exchange, Rhonchi (mild ronchi in bilateral bases), Other (trach). Negative for: Wheezes, Rales Cardiovascular: Positive for: Normal S1, S2, Peripheal Pulses Present, Tachycardic. Negative for: Regular Rate and Rhythm Abdomen: Positive for: Normal Bowel Sounds. Negative for: Tenderness, Distention, Rebound, Guarding Upper Extremity: Positive for: Normal Inspection, NORMAL PULSES. Negative for: Cyanosis, Edema Lower Extremity: Positive for: Normal Inspection. Negative for: Edema, CALF TENDERNESS Neurological: Positive for: Other Skin: Positive for: Warm, Dry, Normal Color Psychiatric: Positive for: Alert - Medications Active Medications: Active Medications Generic Name Dose Route Start Last Admin Trade Name Freq PRN Reason Stop Dose Admin Acetaminophen 650 mg 07/28/18 13:39 08/05/18 21:35 Tylenol 325mg Tab PEG 650 mg Q6 PRN Administration Pain, moderate (4-7) Albuterol/Ipratropium 3 ml 07/28/18 16:34 08/10/18 19:39 Duoneb 3 Mg/0.5 Mg (3 Ml) Ud INH 3 ml RQ4 PRN Administration Shortness of Breath Apixaban 5 mg 07/31/18 18:00 08/10/18 17:54 Eliquis PO 5 mg BID MANOLO Administration Ascorbic Acid 1,000 mg 07/24/18 10:00 08/11/18 10:51 Vitamin C 500 Mg Tab NG 1,000 mg DAILY MANOLO Administration Aspirin 81 mg 07/17/18 10:00 08/11/18 09:49 Aspirin Chewable GT 81 mg DAILY MANOLO Administration Bacitracin 1 gm 08/05/18 22:00 08/10/18 18:40 Bacitracin TOP 1 appl BID MANOLO Administration Insulin Aspart 0 unit 07/11/18 08:28 08/11/18 12:00 Novolog SC Not Given Q6 [facility] Protocol Insulin Glargine 15 unit 08/02/18 22:00 08/11/18 10:51 Lantus SC 15 u Q12 MANOLO Administration Lactobacillus Acidophilus 1 cap 07/08/18 20:00 08/11/18 09:15 Bacid Acidophilus PO 1 cap Q12H MANOLO Administration Methimazole 20 mg 07/27/18 14:00 08/11/18 06:08 Tapazole PO 20 mg Q8 MANOLO Administration Modafinil 100 mg 08/02/18 10:00 08/07/18 09:17 Provigil PEG Not Given DAILY [facility] Multivitamins 1 tab 08/06/18 10:00 08/11/18 09:50 Hexavitamin PEG 1 tab DAILY MANOLO Administration Pantoprazole Sodium 40 mg 07/20/18 10:00 08/11/18 09:51 Protonix Susp PO 40 mg DAILY MANOLO Administration Propranolol HCl 5 mg 08/08/18 10:00 08/11/18 10:00 Inderal PO Not Given TID MANOLO Quetiapine Fumarate 25 mg 08/09/18 19:00 08/11/18 06:08 Seroquel PO 25 mg Q12H MANOLO Administration Vitamin A 1 ea 07/28/18 18:00 08/11/18 10:49 Vitamin A & D Oint Ud Foilpak TOP 1 ea BID MANOLO Administration - Patient Studies Lab Studies: Lab Studies 08/11/18 08/11/18 08/11/18 Range/Units 11:48 05:33 05:04 WBC (4.8-10.8) K/uL RBC (3.80-5.20) Mil/uL Hgb (11.0-16.0) g/dL Hct (34.0-47.0) % MCV (81.0-99.0) fL MCH (27.0-31.0) pg MCHC (33.0-37.0) g/dL RDW (11.5-14.5) % Plt Count (130-400) K/uL MPV (7.2-11.7) fL Neut % (Auto) (50.0-75.0) % Lymph % (Auto) (20.0-40.0) % [place] % (Auto) (0.0-10.0) % Eos % (Auto) (0.0-4.0) % Baso % (Auto) (0.0-2.0) % Neut # (Auto) (1.8-7.0) K/uL Lymph # (Auto) (1.0-4.3) K/uL [place] # (Auto) (0.0-0.8) K/uL Eos # (Auto) (0.0-0.7) K/uL Baso # (Auto) (0.0-0.2) K/uL Sodium 143 (132-148) mmol/L Potassium 4.6 (3.6-5.2) mmol/L Chloride 111 H (98-107) mmol/L Carbon Dioxide 25 (22-30) mmol/L Anion Gap 12 (10-20) BUN 41 H (7-17) mg/dL Creatinine 0.9 (0.7-1.2) mg/dL Est GFR ( Amer) > 60 Est GFR (Non-Af Amer) > 60 POC Glucose (mg/dL) 130 H 121 H (65-110) mg/dL Random Glucose 111 H (65-105) mg/dL Calcium 9.5 (8.6-10.4) mg/dl Phosphorus 5.0 H (2.5-4.5) mg/dL Magnesium 2.5 H (1.6-2.3) mg/dL Total Bilirubin 0.6 (0.2-1.3) mg/dL AST 36 (14-36) U/L ALT 63 H D (9-52) U/L Alkaline Phosphatase 330 H (38-126) U/L Total Protein 7.1 (6.3-8.3) g/dL Albumin 3.2 L (3.5-5.0) g/dL Globulin 3.9 (2.2-3.9) gm/dL Albumin/Globulin Ratio 0.8 L (1.0-2.1) 08/11/18 08/10/18 08/10/18 Range/Units 05:04 23:35 17:55 WBC 9.7 (4.8-10.8) K/uL RBC 2.79 L (3.80-5.20) Mil/uL Hgb 8.3 L (11.0-16.0) g/dL Hct 24.7 L (34.0-47.0) % MCV 88.6 (81.0-99.0) fL MCH 29.7 (27.0-31.0) pg MCHC 33.5 (33.0-37.0) g/dL RDW 14.6 H (11.5-14.5) % Plt Count 419 H (130-400) K/uL MPV 7.6 (7.2-11.7) fL Neut % (Auto) 65.8 (50.0-75.0) % Lymph % (Auto) 19.5 L (20.0-40.0) % [place] % (Auto) 8.3 (0.0-10.0) % Eos % (Auto) 5.1 H (0.0-4.0) % Baso % (Auto) 1.3 (0.0-2.0) % Neut # (Auto) 6.4 (1.8-7.0) K/uL Lymph # (Auto) 1.9 (1.0-4.3) K/uL [place] # (Auto) 0.8 (0.0-0.8) K/uL Eos # (Auto) 0.5 (0.0-0.7) K/uL Baso # (Auto) 0.1 (0.0-0.2) K/uL Sodium (132-148) mmol/L Potassium (3.6-5.2) mmol/L Chloride (98-107) mmol/L Carbon Dioxide (22-30) mmol/L Anion Gap (10-20) BUN (7-17) mg/dL Creatinine (0.7-1.2) mg/dL Est GFR ( Amer) Est GFR (Non-Af Amer) POC Glucose (mg/dL) 124 H 265 H (65-110) mg/dL Random Glucose (65-105) mg/dL Calcium (8.6-10.4) mg/dl Phosphorus (2.5-4.5) mg/dL Magnesium (1.6-2.3) mg/dL Total Bilirubin (0.2-1.3) mg/dL AST (14-36) U/L ALT (9-52) U/L Alkaline Phosphatase (38-126) U/L Total Protein (6.3-8.3) g/dL Albumin (3.5-5.0) g/dL Globulin (2.2-3.9) gm/dL Albumin/Globulin Ratio (1.0-2.1) 08/10/18 Range/Units 11:13 WBC (4.8-10.8) K/uL RBC (3.80-5.20) Mil/uL Hgb (11.0-16.0) g/dL Hct (34.0-47.0) % MCV (81.0-99.0) fL MCH (27.0-31.0) pg MCHC (33.0-37.0) g/dL RDW (11.5-14.5) % Plt Count (130-400) K/uL MPV (7.2-11.7) fL Neut % (Auto) (50.0-75.0) % Lymph % (Auto) (20.0-40.0) % [place] % (Auto) (0.0-10.0) % Eos % (Auto) (0.0-4.0) % Baso % (Auto) (0.0-2.0) % Neut # (Auto) (1.8-7.0) K/uL Lymph # (Auto) (1.0-4.3) K/uL [place] # (Auto) (0.0-0.8) K/uL Eos # (Auto) (0.0-0.7) K/uL Baso # (Auto) (0.0-0.2) K/uL Sodium (132-148) mmol/L Potassium (3.6-5.2) mmol/L Chloride (98-107) mmol/L Carbon Dioxide (22-30) mmol/L Anion Gap (10-20) BUN (7-17) mg/dL Creatinine (0.7-1.2) mg/dL Est GFR ( Amer) Est GFR (Non-Af Amer) POC Glucose (mg/dL) 219 H (65-110) mg/dL Random Glucose (65-105) mg/dL Calcium (8.6-10.4) mg/dl Phosphorus (2.5-4.5) mg/dL Magnesium (1.6-2.3) mg/dL Total Bilirubin (0.2-1.3) mg/dL AST (14-36) U/L ALT (9-52) U/L Alkaline Phosphatase (38-126) U/L Total Protein (6.3-8.3) g/dL Albumin (3.5-5.0) g/dL Globulin (2.2-3.9) gm/dL Albumin/Globulin Ratio (1.0-2.1) Laboratory Results - last 24 hr 08/10/18 08/10/18 08/10/18 11:13 17:55 23:35 WBC RBC Hgb Hct MCV MCH MCHC RDW Plt Count MPV Neut % (Auto) Lymph % (Auto) [place] % (Auto) Eos % (Auto) Baso % (Auto) Neut # (Auto) Lymph # (Auto) [place] # (Auto) Eos # (Auto) Baso # (Auto) Sodium Potassium Chloride Carbon Dioxide Anion Gap BUN Creatinine Est GFR ( Amer) Est GFR (Non-Af Amer) POC Glucose (mg/dL) 219 H 265 H 124 H Random Glucose Calcium Phosphorus Magnesium Total Bilirubin AST ALT Alkaline Phosphatase Total Protein Albumin Globulin Albumin/Globulin Ratio 08/11/18 08/11/18 08/11/18 05:04 05:04 05:33 WBC 9.7 RBC 2.79 L Hgb 8.3 L Hct 24.7 L MCV 88.6 MCH 29.7 MCHC 33.5 RDW 14.6 H Plt Count 419 H MPV 7.6 Neut % (Auto) 65.8 Lymph % (Auto) 19.5 L [place] % (Auto) 8.3 Eos % (Auto) 5.1 H Baso % (Auto) 1.3 Neut # (Auto) 6.4 Lymph # (Auto) 1.9 [place] # (Auto) 0.8 Eos # (Auto) 0.5 Baso # (Auto) 0.1 Sodium 143 Potassium 4.6 Chloride 111 H Carbon Dioxide 25 Anion Gap 12 BUN 41 H Creatinine 0.9 Est GFR ( Amer) > 60 Est GFR (Non-Af Amer) > 60 POC Glucose (mg/dL) 121 H Random Glucose 111 H Calcium 9.5 Phosphorus 5.0 H Magnesium 2.5 H Total Bilirubin 0.6 AST 36 ALT 63 H D Alkaline Phosphatase 330 H Total Protein 7.1 Albumin 3.2 L Globulin 3.9 Albumin/Globulin Ratio 0.8 L 08/11/18 11:48 WBC RBC Hgb Hct MCV MCH MCHC RDW Plt Count MPV Neut % (Auto) Lymph % (Auto) [place] % (Auto) Eos % (Auto) Baso % (Auto) Neut # (Auto) Lymph # (Auto) [place] # (Auto) Eos # (Auto) Baso # (Auto) Sodium Potassium Chloride Carbon Dioxide Anion Gap BUN Creatinine Est GFR ( Amer) Est GFR (Non-Af Amer) POC Glucose (mg/dL) 130 H Random Glucose Calcium Phosphorus Magnesium Total Bilirubin AST ALT Alkaline Phosphatase Total Protein Albumin Globulin Albumin/Globulin Ratio Fingerstick Blood Sugar Results: 130 Critical Care Progress Note - Nutrition Nutrition: Nutrition Category Date Time Status NPO Diet [DIET] Diets 07/25/18 Breakfast Active Assessment/Plan - Assessment and Plan (Free Text) Assessment: This is a 52 yo female with PMH of DM2 and hypercholesterolemia who presented to with cough, post-tussive emesis, and malaise x2-3 weeks. She was admitted to the ICU for respiratory failure and acute renal failure. Of note, patient was CODE BLUE on 07/10 (V-tach). Remains intubated after failing extubation, as patient vomited just hours after extubation. Currently with tracheostomy (performed by Dr. Melchor.) Patient is hemodynamically stable, and is status-post PEG placement with Dr. Murray and GI Fellow Dr. Amaya. Plan Neuro Anoxic brain injury - Hemodynamically stable - Discontinued: Modafinil 100mg PO Daily (due to agitation in PM) Agitation (resolved) - Discontinued: valproic acid 500mg liquid BID - Start Seroquel 25mg PO daily Pulm Chronic Hypoxic Respiratory Failure secondary to pulmonary congestion, renal failure * Status-post trach * CXR shows congestion and R lower lobe infiltrate * Continue bronchodilators * Trach collar trials daily - Goal SaO2 > 92% and paO2 > 55 * FiO2 titrated down to 30% (for goal PO2/FiO2 ratio > 300) * CT angiogram obtained 07/26 to rule out PE -- Negative for PE. - Duonebs 2 ml INH RQ4 - Status-post tracheostomy 07/[address] Melchor CV Hypotension - Normotensive - Discontinued: Levophed - Discontinued: Midodrine - Cardiac arrest from unknown etiology - Cardiology consulted. Appreciate recs. - Repeat ECHO from shows left ventricular thrombus; - Doppler show LLE DVT, right cephalic vein thrombus - Discontinued: Heparin drip - Continue Eliquis 5mg PO BID Daily - Continue daily aspirin 81 mg, crestor 2.5 mg PO HS - Discontinued propranolol 5mg PO TID CHADsVASc Score= 3 * Stroke risk 3.2% per year * 4.6% risk of stroke/TIA/systemic embolism - PICC line placed MSK - OOB as tolerated with assistance - Early Mobilization highly recommended - PT/OT - Discontinue central line (right subclavian) - PICC line order placed GI - Continue Tube Feedings: Vital 1.2 tube feeds Max Rate #35 - Protonix 40 mg IV daily - Dr. Murray Consulted: recommendations appreciated - Pelvic/ trasnvaginal ultrasound performed; revealed thickened endometrial stripe (Please see full report for more detail - OB consulted (Dr. Macias) - CA-125 > 450 - Per OBGYN recommendations; patient is to undergo further work-up as an outpatient - Patient's states patient still has regular menstrual cycles monthly - Monitor H/H Renal - Acute renal failure resolving - Avoid nephrotoxic drugs Heme: - Anemia: Hgb; improved - No acute issues - Continue to monitor H/H Endo - ISS for coverage, q6h - Increased Lantus 10mg Q12 --> Lantus 15mg Q12 - Continue Methimazole 20mg PO Q8 - FSH LH and Prolactin Infectious Disease - Discontinued: Merrem 1 gm daily - Discontinued: vancomycin 1 gm daily - Negative cultures - ID following, appreciate all recs Dispo: tracheostomy collar today, tracheostomy placed 07/24 FEN: NPO, on Tube Feeds Access: Peripheral IVs, right subclavian TLC, ETT, OGT Consults: Palliative, Endo, Nephro, Cardio, Neuro, Cardio, GI Ppx: Protonix for GI, SCDs Code status: FULL Next of kin: Martina Isaacs () Prognosis: Guarded Patient seen, reviewed, and case discussed with attending, Dr. Nesbitt <Dian Nesbitt - Last Filed: 08/11/18 16:19> CCU Objective - Vital Signs / Intake & Output Vital Signs (Last 4 hours): Vital Signs Pulse Resp BP Pulse Ox 08/11/18 16:01 80 19 137/81 100 08/11/18 16:00 76 20 100 08/11/18 15:17 97 H 23 127/71 100 08/11/18 14:00 88 26 H 100 Intake and Output (Last 8hrs): Intake & Output 08/11/18 08/11/18 08/11/18 06:59 14:59 22:59 Intake Total 0 300 Balance 0 300 Weight 104 lb 3.2 oz Intake: Tube Feeding 0 300 Other: # Voids Urine, Voided 1 1 # Bowel Movements 1 - Medications Active Medications: Active Medications Generic Name Dose Route Start Last Admin Trade Name Freq PRN Reason Stop Dose Admin Acetaminophen 650 mg 07/28/18 13:39 08/05/18 21:35 Tylenol 325mg Tab PEG 650 mg Q6 PRN Administration Pain, moderate (4-7) Albuterol/Ipratropium 3 ml 07/28/18 16:34 08/10/18 19:39 Duoneb 3 Mg/0.5 Mg (3 Ml) Ud INH 3 ml RQ4 PRN Administration Shortness of Breath Apixaban 5 mg 07/31/18 18:00 08/10/18 17:54 Eliquis PO 5 mg BID MANOLO Administration Ascorbic Acid 1,000 mg 07/24/18 10:00 08/11/18 10:51 Vitamin C 500 Mg Tab NG 1,000 mg DAILY MANOLO Administration Aspirin 81 mg 07/17/18 10:00 08/11/18 09:49 Aspirin Chewable GT 81 mg DAILY MANOLO Administration Bacitracin 1 gm 08/05/18 22:00 08/10/18 18:40 Bacitracin TOP 1 appl BID MANOLO Administration Insulin Aspart 0 unit 07/11/18 08:28 08/11/18 12:00 Novolog SC Not Given Q6 [facility] Protocol Insulin Glargine 15 unit 08/02/18 22:00 08/11/18 10:51 Lantus SC 15 u Q12 MANOLO Administration Lactobacillus Acidophilus 1 cap 07/08/18 20:00 08/11/18 09:15 Bacid Acidophilus PO 1 cap Q12H MANOLO Administration Methimazole 20 mg 07/27/18 14:00 08/11/18 14:55 Tapazole PO 20 mg Q8 MANOLO Administration Modafinil 100 mg 08/02/18 10:00 08/07/18 09:17 Provigil PEG Not Given DAILY [facility] Multivitamins 1 tab 08/06/18 10:00 08/11/18 09:50 Hexavitamin PEG 1 tab DAILY MANOLO Administration Pantoprazole Sodium 40 mg 07/20/18 10:00 08/11/18 09:51 Protonix Susp PO 40 mg DAILY MANOLO Administration Propranolol HCl 5 mg 08/08/18 10:00 08/11/18 14:55 Inderal PO 5 mg TID MANOLO Administration Quetiapine Fumarate 25 mg 08/09/18 19:00 08/11/18 06:08 Seroquel PO 25 mg Q12H MANOLO Administration Vitamin A 1 ea 07/28/18 18:00 08/11/18 10:49 Vitamin A & D Oint Ud Foilpak TOP 1 ea BID MANOLO Administration - Patient Studies Lab Studies: Lab Studies 08/11/18 08/11/18 08/11/18 Range/Units 11:48 05:33 05:04 WBC (4.8-10.8) K/uL RBC (3.80-5.20) Mil/uL Hgb (11.0-16.0) g/dL Hct (34.0-47.0) % MCV (81.0-99.0) fL MCH (27.0-31.0) pg MCHC (33.0-37.0) g/dL RDW (11.5-14.5) % Plt Count (130-400) K/uL MPV (7.2-11.7) fL Neut % (Auto) (50.0-75.0) % Lymph % (Auto) (20.0-40.0) % [place] % (Auto) (0.0-10.0) % Eos % (Auto) (0.0-4.0) % Baso % (Auto) (0.0-2.0) % Neut # (Auto) (1.8-7.0) K/uL Lymph # (Auto) (1.0-4.3) K/uL [place] # (Auto) (0.0-0.8) K/uL Eos # (Auto) (0.0-0.7) K/uL Baso # (Auto) (0.0-0.2) K/uL Sodium 143 (132-148) mmol/L Potassium 4.6 (3.6-5.2) mmol/L Chloride 111 H (98-107) mmol/L Carbon Dioxide 25 (22-30) mmol/L Anion Gap 12 (10-20) BUN 41 H (7-17) mg/dL Creatinine 0.9 (0.7-1.2) mg/dL Est GFR ( Amer) > 60 Est GFR (Non-Af Amer) > 60 POC Glucose (mg/dL) 130 H 121 H (65-110) mg/dL Random Glucose 111 H (65-105) mg/dL Calcium 9.5 (8.6-10.4) mg/dl Phosphorus 5.0 H (2.5-4.5) mg/dL Magnesium 2.5 H (1.6-2.3) mg/dL Total Bilirubin 0.6 (0.2-1.3) mg/dL AST 36 (14-36) U/L ALT 63 H D (9-52) U/L Alkaline Phosphatase 330 H (38-126) U/L Total Protein 7.1 (6.3-8.3) g/dL Albumin 3.2 L (3.5-5.0) g/dL Globulin 3.9 (2.2-3.9) gm/dL Albumin/Globulin Ratio 0.8 L (1.0-2.1) 08/11/18 08/10/18 08/10/18 Range/Units 05:04 23:35 17:55 WBC 9.7 (4.8-10.8) K/uL RBC 2.79 L (3.80-5.20) Mil/uL Hgb 8.3 L (11.0-16.0) g/dL Hct 24.7 L (34.0-47.0) % MCV 88.6 (81.0-99.0) fL MCH 29.7 (27.0-31.0) pg MCHC 33.5 (33.0-37.0) g/dL RDW 14.6 H (11.5-14.5) % Plt Count 419 H (130-400) K/uL MPV 7.6 (7.2-11.7) fL Neut % (Auto) 65.8 (50.0-75.0) % Lymph % (Auto) 19.5 L (20.0-40.0) % [place] % (Auto) 8.3 (0.0-10.0) % Eos % (Auto) 5.1 H (0.0-4.0) % Baso % (Auto) 1.3 (0.0-2.0) % Neut # (Auto) 6.4 (1.8-7.0) K/uL Lymph # (Auto) 1.9 (1.0-4.3) K/uL [place] # (Auto) 0.8 (0.0-0.8) K/uL Eos # (Auto) 0.5 (0.0-0.7) K/uL Baso # (Auto) 0.1 (0.0-0.2) K/uL Sodium (132-148) mmol/L Potassium (3.6-5.2) mmol/L Chloride (98-107) mmol/L Carbon Dioxide (22-30) mmol/L Anion Gap (10-20) BUN (7-17) mg/dL Creatinine (0.7-1.2) mg/dL Est GFR ( Amer) Est GFR (Non-Af Amer) POC Glucose (mg/dL) 124 H 265 H (65-110) mg/dL Random Glucose (65-105) mg/dL Calcium (8.6-10.4) mg/dl Phosphorus (2.5-4.5) mg/dL Magnesium (1.6-2.3) mg/dL Total Bilirubin (0.2-1.3) mg/dL AST (14-36) U/L ALT (9-52) U/L Alkaline Phosphatase (38-126) U/L Total Protein (6.3-8.3) g/dL Albumin (3.5-5.0) g/dL Globulin (2.2-3.9) gm/dL Albumin/Globulin Ratio (1.0-2.1) 08/10/18 Range/Units 11:13 WBC (4.8-10.8) K/uL RBC (3.80-5.20) Mil/uL Hgb (11.0-16.0) g/dL Hct (34.0-47.0) % MCV (81.0-99.0) fL MCH (27.0-31.0) pg MCHC (33.0-37.0) g/dL RDW (11.5-14.5) % Plt Count (130-400) K/uL MPV (7.2-11.7) fL Neut % (Auto) (50.0-75.0) % Lymph % (Auto) (20.0-40.0) % [place] % (Auto) (0.0-10.0) % Eos % (Auto) (0.0-4.0) % Baso % (Auto) (0.0-2.0) % Neut # (Auto) (1.8-7.0) K/uL Lymph # (Auto) (1.0-4.3) K/uL [place] # (Auto) (0.0-0.8) K/uL Eos # (Auto) (0.0-0.7) K/uL Baso # (Auto) (0.0-0.2) K/uL Sodium (132-148) mmol/L Potassium (3.6-5.2) mmol/L Chloride (98-107) mmol/L Carbon Dioxide (22-30) mmol/L Anion Gap (10-20) BUN (7-17) mg/dL Creatinine (0.7-1.2) mg/dL Est GFR ( Amer) Est GFR (Non-Af Amer) POC Glucose (mg/dL) 219 H (65-110) mg/dL Random Glucose (65-105) mg/dL Calcium (8.6-10.4) mg/dl Phosphorus (2.5-4.5) mg/dL Magnesium (1.6-2.3) mg/dL Total Bilirubin (0.2-1.3) mg/dL AST (14-36) U/L ALT (9-52) U/L Alkaline Phosphatase (38-126) U/L Total Protein (6.3-8.3) g/dL Albumin (3.5-5.0) g/dL Globulin (2.2-3.9) gm/dL Albumin/Globulin Ratio (1.0-2.1) Laboratory Results - last 24 hr 08/10/18 08/10/18 08/10/18 11:13 17:55 23:35 WBC RBC Hgb Hct MCV MCH MCHC RDW Plt Count MPV Neut % (Auto) Lymph % (Auto) [place] % (Auto) Eos % (Auto) Baso % (Auto) Neut # (Auto) Lymph # (Auto) [place] # (Auto) Eos # (Auto) Baso # (Auto) Sodium Potassium Chloride Carbon Dioxide Anion Gap BUN Creatinine Est GFR ( Amer) Est GFR (Non-Af Amer) POC Glucose (mg/dL) 219 H 265 H 124 H Random Glucose Calcium Phosphorus Magnesium Total Bilirubin AST ALT Alkaline Phosphatase Total Protein Albumin Globulin Albumin/Globulin Ratio 08/11/18 08/11/18 08/11/18 05:04 05:04 05:33 WBC 9.7 RBC 2.79 L Hgb 8.3 L Hct 24.7 L MCV 88.6 MCH 29.7 MCHC 33.5 RDW 14.6 H Plt Count 419 H MPV 7.6 Neut % (Auto) 65.8 Lymph % (Auto) 19.5 L [place] % (Auto) 8.3 Eos % (Auto) 5.1 H Baso % (Auto) 1.3 Neut # (Auto) 6.4 Lymph # (Auto) 1.9 [place] # (Auto) 0.8 Eos # (Auto) 0.5 Baso # (Auto) 0.1 Sodium 143 Potassium 4.6 Chloride 111 H Carbon Dioxide 25 Anion Gap 12 BUN 41 H Creatinine 0.9 Est GFR ( Amer) > 60 Est GFR (Non-Af Amer) > 60 POC Glucose (mg/dL) 121 H Random Glucose 111 H Calcium 9.5 Phosphorus 5.0 H Magnesium 2.5 H Total Bilirubin 0.6 AST 36 ALT 63 H D Alkaline Phosphatase 330 H Total Protein 7.1 Albumin 3.2 L Globulin 3.9 Albumin/Globulin Ratio 0.8 L 08/11/18 11:48 WBC RBC Hgb Hct MCV MCH MCHC RDW Plt Count MPV Neut % (Auto) Lymph % (Auto) [place] % (Auto) Eos % (Auto) Baso % (Auto) Neut # (Auto) Lymph # (Auto) [place] # (Auto) Eos # (Auto) Baso # (Auto) Sodium Potassium Chloride Carbon Dioxide Anion Gap BUN Creatinine Est GFR ( Amer) Est GFR (Non-Af Amer) POC Glucose (mg/dL) 130 H Random Glucose Calcium Phosphorus Magnesium Total Bilirubin AST ALT Alkaline Phosphatase Total Protein Albumin Globulin Albumin/Globulin Ratio Critical Care Progress Note - Nutrition Nutrition: Nutrition Category Date Time Status NPO Diet [DIET] Diets 07/25/18 Breakfast Active Assessment/Plan - Assessment and Plan (Free Text) Plan: Patient seen and examined at bedside. Patient tolerated trach color. -Patient remains hemodynamically stable -above resident documents my clinical management. - Date & Time Date: 08/11/18 Time: 16:19
[2018-08-11] MEDS: Albuterol-Ipratrop 3 mg / 0.5 (3 ml) UD INH PRN ×2 (16:46→20:34)
--- NOTE | 2018-08-11 21:44 | CP.PCM.PN ---
Subjective - Date & Time of Evaluation Date of Evaluation: 08/11/18 Time of Evaluation: 09:40 - Subjective Subjective: Medical Attending Note: Patient seen and examined. not present at bedside. Patient's agitation calmer with Seroquel on board. Unable to ROS secondary to clinical condition. Objective - Vital Signs/Intake and Output Vital Signs (last 24 hours): Temp Pulse Resp BP Pulse Ox 98.7 F 78 20 137/81 100 08/11/18 16:00 08/11/18 18:00 08/11/18 18:00 08/11/18 16:01 08/11/18 18:00 Intake and Output: 08/11/18 08/12/18 18:59 06:59 Intake Total 800 Balance 800 - Medications Medications: Current Medications Acetaminophen (Tylenol 325mg Tab) 650 mg PEG Q6 PRN PRN Reason: Pain, moderate (4-7) Last Admin: 08/05/18 21:35 Dose: 650 mg Albuterol/Ipratropium (Duoneb 3 Mg/0.5 Mg (3 Ml) Ud) 3 ml INH RQ4 PRN PRN Reason: Shortness of Breath Last Admin: 08/11/18 20:34 Dose: 3 ml Apixaban (Eliquis) 5 mg PO BID [facility] Last Admin: 08/11/18 18:14 Dose: 5 mg Ascorbic Acid (Vitamin C 500 Mg Tab) 1,000 mg NG DAILY [facility] Last Admin: 08/11/18 10:51 Dose: 1,000 mg Aspirin (Aspirin Chewable) 81 mg GT DAILY [facility] Last Admin: 08/11/18 09:49 Dose: 81 mg Bacitracin (Bacitracin) 1 gm TOP BID [facility] Last Admin: 08/11/18 18:14 Dose: 1 appl Insulin Aspart (Novolog) 0 unit SC Q6 [facility]; Protocol Last Admin: 08/11/18 18:14 Dose: 2 units Insulin Glargine (Lantus) 15 unit SC Q12 [facility] Last Admin: 08/11/18 10:51 Dose: 15 u Lactobacillus Acidophilus (Bacid Acidophilus) 1 cap PO Q12H [facility] Last Admin: 08/11/18 20:15 Dose: 1 cap Methimazole (Tapazole) 20 mg PO Q8 [facility] Last Admin: 08/11/18 14:55 Dose: 20 mg Modafinil (Provigil) 100 mg PEG DAILY [facility] Last Admin: 08/07/18 09:17 Dose: Not Given Multivitamins (Hexavitamin) 1 tab PEG DAILY [facility] Last Admin: 08/11/18 09:50 Dose: 1 tab Pantoprazole Sodium (Protonix Susp) 40 mg PO DAILY [facility] Last Admin: 08/11/18 09:51 Dose: 40 mg Propranolol HCl (Inderal) 5 mg PO TID [facility] Last Admin: 08/11/18 18:13 Dose: 5 mg Quetiapine Fumarate (Seroquel) 25 mg PO Q12H [facility] Last Admin: 08/11/18 18:16 Dose: 25 mg Vitamin A (Vitamin A & D Oint Ud Foilpak) 1 ea TOP BID [facility] Last Admin: 08/11/18 18:13 Dose: 1 ea - Labs Labs: 08/11/18 05:04 08/11/18 05:04 PT 17.7 SECONDS (9.7-12.2) H 07/28/18 06:19 INR 1.6 07/28/18 06:19 APTT 52 SECONDS (21-34) H 07/31/18 05:56 - Constitutional Appears: Non-toxic, No Acute Distress - Head Exam Head Exam: NORMAL INSPECTION Additional comments: trach clean/dry/intact - Eye Exam Eye Exam: EOMI - ENT Exam ENT Exam: Mucous Membranes Dry - Respiratory Exam Respiratory Exam: Clear to Ausculation Bilateral, NORMAL BREATHING PATTERN. absent: Rales, Rhonchi, Wheezes - Cardiovascular Exam Cardiovascular Exam: REGULAR RHYTHM, +S1, +S2 - GI/Abdominal Exam GI & Abdominal Exam: Soft, Normal Bowel Sounds. absent: Distended, Firm, Guarding, Rigid, Tenderness, Rebound Additional comments: peg clean/dry/intact - Extremities Exam Extremities Exam: absent: Pedal Edema, Tenderness Additional comments: muscle atrophy - Neurological Exam Neurological Exam: Awake - Skin Skin Exam: Dry, Normal Color, Warm Assessment and Plan (1) Septic shock Status: Acute (2) Acute respiratory failure Status: Acute (3) Urinary tract infection Status: Acute (4) Acute renal failure Status: Acute (5) Aspiration pneumonia Status: Acute (6) Diabetes mellitus Status: Chronic (7) Ventricular arrhythmia Status: Acute (8) Hyperthyroidism Status: Acute (9) Anemia Status: Acute (10) Prophylactic measure Status: Acute Attending/Attestation - Attestation I have personally seen and examined this patient.: Yes I have fully participated in the care of the patient.: Yes I have reviewed all pertinent clinical information, including history, physical exam and plan: Yes Notes (Text): 1) Septic Shock Pneumonia Urinary Tract Infection Assessment/Plan * Infectious Disease (Dr. Brock) on case-->help appreciated * Tmax: 101.7 F (07/19/18) * Afebrile since * Criteria: leukocytosis, tachycardia * Source: aspiration pneumonia and urinary tract infection * 07/07/18: Urine: E. Coli * 07/09/18: Urine: No growth * 07/07/18: Blood culture: no growth after 5 days X2 * 07/09/18 Blood culture: no growth after 5 days X2 * 07/14/18: blood cultures: no growth to date * 07/14/18: sputum culture: yeast species * 07/14/18: Urine culture: no growth * 07/20/18: Blood culture: no growth after 5 days X2 * 07/20/18: Urine culture: no growth * 07/21/18: No Salmonella, shigella, or campobacter * 07/23/18 Urine culture: no growth * MRSA not detected * Antibiotics * Rocephin 2gm IVPB Q12H (07/14/18 through 07/20/18) * Meropenem 1 gm IV Q8H (active since 07/20/18)-->spoke with ICU Physician Dr. Lozada 08/02/18 and as repeat Chest X Ray 07/31/18 does not show any infiltrates, NO need to restart * Vancomycin 1 gram IVPB Q24H (being held since 07/20/18)-->vancomycin level 7.7-->per id to d/c vancomycin * Off antibiotics 2) Acute Respiratory Failure Pulmonary Edema Bilateral Pleural Effusion and Consolidations Likely Secondary to Aspiration Pneumonia Anoxic Encephalopagty Assessment/Plan * Required reintubated after 2nd fail attempt; patient underwent tracheostomy 07/24/18 * off Solumedrol * Duonebs RQ4H PRN wheezing * MRSA screen: not detected * Sputum culture 07/09/18, 07/12/18, 07/14/18: yeast * Mycoplasma negative * Legionella was negative * Influenza negative * HIV negative * CT Chest 07/15/18: Moderate to large bilateral pleural effusion and associated consolidations, pathcy grround-glass infiltrates/edema noted within bilateral upper lobes * Chest xray (07/24/18): worsening infiltrates, satisfactory position of recently placed tracheostomy device. Satisfactory position of remaining support apparatus including venous access catheter and recently placed nasogastric tube * Rocephin 2gm IVPB Q12H (07/14/18 through 07/20/18) * Meropenem 1 gm IV Q8H (active since 07/20/18)-->will need renewal by ID * Vancomycin 1 gram IVPB Q24H (being held since 07/20/18) discontinued by ID * Bedside Thoracic U/S 07/17/18 did not reveal enough pleural effusion for Thoracentesis and per IR on 07/28/18 nothing to drain * Lasix 20 mg IV Q12H was discontinued 08/03/18 * held Provigil 100 mg PEG 1x/day * Patient is awake all night--->patient was in rapid afib overnight. * Procalcitonin downtrending to 0.75. 3) Anoxic Encephalopathy Ventricular Tachycardia NSTEMI Apical Thrombus LLE DVT Assessment/Plan * Code Blue 07/10: SVT==>VT required amiodarone, magnesium, one shock delivered * Code Blue 07/20: vtach s/p amiodarone, fluid, calcium gluconate, required compressions and shock * Cardiology Dr Francisco on case help appreciated * No cath needed. * Medical management * Echocardiogram (07/07/18): left ventricle systolic function is borderline, ejection fraction is 45-50%, no aortic regurgitation is present, mitral regurgitation is mild. Mild tricuspid regurgitation. mild pulmonary hypertension, mild pulmonic valvular regurgitation * Contrast Echo: Large apical hypokinesis a large 30 x 20 mm soft tissue apical sessile mass suggestive of thrombus overall fraction 40%. Obtain a HUBERT or/consider stress card myopathy if coronary disease is excluded further findings per report * Monitor electrolytes * Eliquis 5 mg PO BID * Aspirin 81 mg PO 1x/day * Propranolol 5mg PO TID restart 08/08/18 * Patient had rapid afib overnight 08/07/18 * Crestor 2.5 mg PO HS 4) Urinary Tract Infection Assessment/Plan * Infectious disease on board help appreciated * 07/07/18: Urine: E. Coli * 07/09/18: Urine: No growth * 07/14/18: Urine culture: No growth * Urine Culture 07/20/18: No growth 5) Diabetes-->chronic Assessment/Plan * HgBA1c: 7.8 * Hypoglycemic protocol * Lantus 15 units subcutaneous at bedtime Q12 6) Acute on Chronic Renal Failure Assessment/Plan * Nephrology (Dr. Hyde) on board--> help appreciated * Patient will likely not need dialysis * Renal function continues to improve 7) Hyperthyroidism? Low TSH, and Free T4 Thyroid Storm Assessment/Plan * Note Thyroid studies taken before amiodarone was given (please advised this is not amiodarone induced her levels were abnormal prior) * Patient does not have prior thyroid history * Endocrinology (Dr. 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 She will need outpatient FNA Bx of the complex Left Lobe cyst (p soledad see full report) * Methimazole 20mg PO TID * Propranolol 5 mg PO TID was discontinued 08/03/18; restart 08/08/18 * Monitor LFTs 8) Anemia Likely Secondary to Chronic Diseases Assessment/Plan * Iron normal, TIBC low, Iron Saturation normal, Ferritin normal * Stool occult blood negative * B12 normal * Folate Normal * Transfused 1 unit PRBC 07/22/18 * Patient is on Eliquis restarted on 07/31/18 given apical thrombus 9) Transminitis-->improving * Likely secondary to Sepsis and Amiodarone (which was discontinued) * Hepatitis serology negative * Slightly elevated from normal on 07/20/18 but could be secondary to INSURANCE ACTUARY/Code Blue 07/20/18 10) Vitamin D deficiency Assessment plan * 50,000 international units once a week for at least 8-12 weeks started on 07/11/18 11) Thrombocytopenia-->resolved Assessment plan * Sepsis, vs Methimazole? * Fibrinogen elevated * HIT and RUSTY both negative for HIT * Currently normalized 12) 13 mm Left Adrenal Nodule * As seen on CT Chest 07/16/18 * Will need outpatient follow up for cross sectional imaging for better characterization 13) Hypernatremia-->resolved * Free water 250 ml 3x/day via OGT * Na now normal 14) LLE DVT * Eliquis 5 mg PO BID restarted on 07/31/18 * Acute thrombosis of the left common femoral and femoral veins with severe reduction of the venous return on 07/18/18 venous doppler 15) Deconditioning * Patient needs continued PT/OT 16) Prophylactic measure * Protonix 40mg PO BID * Lactobacillus 1 cap PO BID * MVI 1x/day * Vitamin C 1,000 NG 1x/day * Trach and Peg * SCD on Right and contraindicated on Left due to DVT * Peg feedings * PICC Line 07/31/18 * Off Precedex * Off Ativan * Seroquel * Note: speak to patient in alexis to assess neurologic status-->she does follow Disposition: Patient does not have insurance: please f/u with social/case management to start insurance process for potential LTAC/rehab. She will need significant rehab to regain muscle and strength. Patient is on trach collar.
[2018-08-12] MEDS: (Novolog) Insulin Aspart, Recombinant 100 u/ml 10 ml vial SC SCH ×4 (01:21→17:52)
--- NOTE | 2018-08-12 05:59 | CP.PCM.PN ---
<Tamie Hinkle - Last Filed: 08/12/18 05:56> Subjective - Date & Time of Evaluation Date of Evaluation: 08/12/18 Time of Evaluation: 06:55 - Subjective Subjective: PGY-1 Medicine Progress Note for Dr. Leahy Patient was seen and examined today at bedside in no acute distress. Nurse reports no overnight events. Patient unable to communicate verbally with trach. Unable to obtain ROS. Objective - Vital Signs/Intake and Output Vital Signs (last 24 hours): Temp Pulse Resp BP Pulse Ox 98 F 100 H 22 114/65 98 08/12/18 04:00 08/12/18 04:00 08/12/18 04:00 08/12/18 04:00 08/12/18 04:00 Intake and Output: 08/11/18 08/12/18 18:59 06:59 Intake Total 800 Balance 800 - Medications Medications: Current Medications Acetaminophen (Tylenol 325mg Tab) 650 mg PEG Q6 PRN PRN Reason: Pain, moderate (4-7) Last Admin: 08/05/18 21:35 Dose: 650 mg Albuterol/Ipratropium (Duoneb 3 Mg/0.5 Mg (3 Ml) Ud) 3 ml INH RQ4 PRN PRN Reason: Shortness of Breath Last Admin: 08/11/18 20:34 Dose: 3 ml Apixaban (Eliquis) 5 mg PO BID [facility] Last Admin: 08/11/18 18:14 Dose: 5 mg Ascorbic Acid (Vitamin C 500 Mg Tab) 1,000 mg NG DAILY [facility] Last Admin: 08/11/18 10:51 Dose: 1,000 mg Aspirin (Aspirin Chewable) 81 mg GT DAILY [facility] Last Admin: 08/11/18 09:49 Dose: 81 mg Bacitracin (Bacitracin) 1 gm TOP BID [facility] Last Admin: 08/11/18 18:14 Dose: 1 appl Insulin Aspart (Novolog) 0 unit SC Q6 [facility]; Protocol Insulin Glargine (Lantus) 15 unit SC Q12 [facility] Last Admin: 08/11/18 22:44 Dose: 15 u Lactobacillus Acidophilus (Bacid Acidophilus) 1 cap PO Q12H [facility] Last Admin: 08/11/18 20:15 Dose: 1 cap Methimazole (Tapazole) 20 mg PO Q8 [facility] Last Admin: 08/11/18 22:44 Dose: 20 mg Modafinil (Provigil) 100 mg PEG DAILY [facility] Last Admin: 08/07/18 09:17 Dose: Not Given Multivitamins (Hexavitamin) 1 tab PEG DAILY [facility] Last Admin: 08/11/18 09:50 Dose: 1 tab Pantoprazole Sodium (Protonix Susp) 40 mg PO DAILY [facility] Last Admin: 08/11/18 09:51 Dose: 40 mg Propranolol HCl (Inderal) 5 mg PO TID [facility] Last Admin: 08/11/18 18:13 Dose: 5 mg Quetiapine Fumarate (Seroquel) 25 mg PO Q12H [facility] Last Admin: 08/11/18 18:16 Dose: 25 mg Vitamin A (Vitamin A & D Oint Ud Foilpak) 1 ea TOP BID [facility] Last Admin: 08/11/18 18:13 Dose: 1 ea - Labs Labs: 08/11/18 05:04 08/11/18 05:04 PT 17.7 SECONDS (9.7-12.2) H 07/28/18 06:19 INR 1.6 07/28/18 06:19 APTT 52 SECONDS (21-34) H 07/31/18 05:56 - Constitutional Appears: Non-toxic, No Acute Distress - Eye Exam Eye Exam: EOMI - ENT Exam ENT Exam: Mucous Membranes Dry - Neck Exam Additional comments: trach c/d/i - Respiratory Exam Respiratory Exam: Clear to Ausculation Bilateral, NORMAL BREATHING PATTERN. absent: Rales, Rhonchi, Wheezes - Cardiovascular Exam Cardiovascular Exam: REGULAR RHYTHM, +S1, +S2 - GI/Abdominal Exam GI & Abdominal Exam: Soft, Normal Bowel Sounds. absent: Distended, Firm, Tenderness Additional comments: PEG c/d/i - Extremities Exam Extremities Exam: absent: Calf Tenderness, Pedal Edema Additional comments: generalized atrophy of musculature - Neurological Exam Neurological Exam: Awake - Skin Skin Exam: Dry, Intact, Normal Color, Warm Assessment and Plan - Assessment and Plan (Free Text) Plan: 1) Septic Shock Pneumonia Urinary Tract Infection Assessment/Plan * Infectious Disease (Dr. Brock) on case-->help appreciated * Tmax: 101.7 F (07/19/18) * Afebrile since * Criteria: leukocytosis, tachycardia * Source: aspiration pneumonia and urinary tract infection * 07/07/18: Urine: E. Coli * 07/09/18: Urine: No growth * 07/07/18: Blood culture: no growth after 5 days X2 * 07/09/18 Blood culture: no growth after 5 days X2 * 07/14/18: blood cultures: no growth to date * 07/14/18: sputum culture: yeast species * 07/14/18: Urine culture: no growth * 07/20/18: Blood culture: no growth after 5 days X2 * 07/20/18: Urine culture: no growth * 07/21/18: No Salmonella, shigella, or campobacter * 07/23/18 Urine culture: no growth * MRSA not detected * Antibiotics * Rocephin 2gm IVPB Q12H (07/14/18 through 07/20/18) * Meropenem 1 gm IV Q8H (active since 07/20/18)-->spoke with ICU Physician Dr. Lozada 08/02/18 and as repeat Chest X Ray 07/31/18 does not show any infiltrates, NO need to restart * Vancomycin 1 gram IVPB Q24H (being held since 07/20/18)-->vancomycin level 7.7-->per id to d/c vancomycin * Off antibiotics 2) Acute Respiratory Failure Pulmonary Edema Bilateral Pleural Effusion and Consolidations Likely Secondary to Aspir ation Pneumonia Anoxic Encephalopagty Assessment/Plan * Required reintubated after 2nd fail attempt; patient underwent tracheostomy 07/24/18 * off Solumedrol * Duonebs RQ4H PRN wheezing * MRSA screen: not detected * Sputum culture 07/09/18, 07/12/18, 07/14/18: yeast * Mycoplasma negative * Legionella was negative * Influenza negative * HIV negative * CT Chest 07/15/18: Moderate to large bilateral pleural effusion and associated consolidations, pathcy grround-glass infiltrates/edema noted within bilateral upper lobes * Chest xray (07/24/18): worsening infiltrates, satisfactory position of recently placed tracheostomy device. Satisfactory position of remaining support apparatus including venous access catheter and recently placed nasogastric tube * Rocephin 2gm IVPB Q12H (07/14/18 through 07/20/18) * Meropenem 1 gm IV Q8H (active since 07/20/18)-->will need renewal by ID * Vancomycin 1 gram IVPB Q24H (being held since 07/20/18) discontinued by ID * Bedside Thoracic U/S 07/17/18 did not reveal enough pleural effusion for Thoracentesis and per IR on 07/28/18 nothing to drain * Lasix 20 mg IV Q12H was discontinued 08/03/18 * held Provigil 100 mg PEG 1x/day * Patient is awake all night--->patient was in rapid afib overnight. * Procalcitonin downtrending to 0.75 (07/27). 3) Anoxic Encephalopathy Ventricular Tachycardia NSTEMI Apical Thrombus LLE DVT Assessment/Plan * Code Blue 07/10: SVT==>VT required amiodarone, magnesium, one shock delivered * Code Blue 07/20: vtach s/p amiodarone, fluid, calcium gluconate, required compressions and shock * Cardiology Dr Francisco on case help appreciated * No cath needed. * Medical management * Echocardiogram (07/07/18): left ventricle systolic function is borderline, ejection fraction is 45-50%, no aortic regurgitation is present, mitral regurgitation is mild. Mild tricuspid regurgitation. mild pulmonary hypertension, mild pulmonic valvular regurgitation * Contrast Echo: Large apical hypokinesis a large 30 x 20 mm soft tissue apical sessile mass suggestive of thrombus overall fraction 40%. Obtain a HUBERT or/consider stress card myopathy if coronary disease is excluded further findings per report * Monitor electrolytes * Eliquis 5 mg PO BID * Aspirin 81 mg PO 1x/day * Propranolol 5mg PO TID restart 08/08/18 * Patient had rapid afib overnight 08/07/18 * Crestor 2.5 mg PO HS 4) Urinary Tract Infection Assessment/Plan * Infectious disease on board help appreciated * 07/07/18: Urine: E. Coli * 07/09/18: Urine: No growth * 07/14/18: Urine culture: No growth * Urine Culture 07/20/18: No growth 5) Diabetes-->chronic Assessment/Plan * HgBA1c: 7.8 * Hypoglycemic protocol * Lantus 15 units subcutaneous at bedtime Q12 6) Acute on Chronic Renal Failure Assessment/Plan * Nephrology (Dr. Hyde) on board--> help appreciated * Patient will likely not need dialysis * Renal function continues to improve 7) Hyperthyroidism? Low TSH, and Free T4 Thyroid Storm Assessment/Plan * Note Thyroid studies taken before amiodarone was given (please advised this is not amiodarone induced her levels were abnormal prior) * Patient does not have prior thyroid history * Endocrinology (Dr. Gayle) on board help appreciated * Thyroid U/S 07/16/18: showed heterogenous thydroid with multiple nodules jayde aterally. She will need outpatient FNA Bx of the complex Left Lobe cyst (please see full report) * Methimazole 20mg PO TID * Propranolol 5 mg PO TID was discontinued 08/03/18; restart 08/08/18 * Monitor LFTs 8) Anemia Likely Secondary to Chronic Diseases Assessment/Plan * Iron normal, TIBC low, Iron Saturation normal, Ferritin normal * Stool occult blood negative * B12 normal * Folate Normal * Transfused 1 unit PRBC 07/22/18 * Patient is on Eliquis restarted on 07/31/18 given apical thrombus 9) Transminitis-->improving * Likely secondary to Sepsis and Amiodarone (which was discontinued) * Hepatitis serology negative * Slightly elevated from normal on 07/20/18 but could be secondary to [employer]/Code Blue 07/20/18 10) Vitamin D deficiency Assessment plan * 50,000 international units once a week for at least 8-12 weeks started on 07/11/18 11) Thrombocytopenia-->resolved Assessment plan * Sepsis, vs Methimazole? * Fibrinogen elevated * HIT and RUSTY both negative for HIT * Currently normalized 12) 13 mm Left Adrenal Nodule * As seen on CT Chest 07/16/18 * Will need outpatient follow up for cross sectional imaging for better characterization 13) Hypernatremia-->resolved * Free water 250 ml 3x/day via OGT * Na now normal 14) LLE DVT * Eliquis 5 mg PO BID restarted on 07/31/18 * Acute thrombosis of the left common femoral and femoral veins with severe reduction of the venous return on 07/18/18 venous doppler 15) Deconditioning * Patient needs continued PT/OT 16) Prophylactic measure * Protonix 40mg PO BID * Lactobacillus 1 cap PO BID * MVI 1x/day * Vitamin C 1,000 NG 1x/day * Trach and Peg * SCD on Right and contraindicated on Left due to DVT * Peg feedings * PICC Line 07/31/18 * Off Precedex * Off Ativan * Seroquel * Note: speak to patient in alexis to assess neurologic status-->she does follow Disposition: Patient does not have insurance: please f/u with social/case management to start insurance process for potential LTAC/rehab. She will need significant rehab to regain muscle and strength. Patient is on trach collar. <Saira Leahy V - Last Filed: 08/12/18 08:58> Objective - Vital Signs/Intake and Output Vital Signs (last 24 hours): Temp Pulse Resp BP Pulse Ox 98.5 F 100 H 22 114/65 98 08/12/18 07:30 08/12/18 04:00 08/12/18 04:00 08/12/18 04:00 08/12/18 04:00 Intake and Output: 08/12/18 08/12/18 06:59 18:59 Intake Total 800 Output Total 200 Balance 600 - Medications Medications: Current Medications Acetaminophen (Tylenol 325mg Tab) 650 mg PEG Q6 PRN PRN Reason: Fever >100.4 F Albuterol/Ipratropium (Duoneb 3 Mg/0.5 Mg (3 Ml) Ud) 3 ml INH RQ4 PRN PRN Reason: Shortness of Breath Last Admin: 08/11/18 20:34 Dose: 3 ml Apixaban (Eliquis) 5 mg PEG BID [facility] Ascorbic Acid (Vitamin C 500 Mg Tab) 1,000 mg NG DAILY [facility] Last Admin: 08/11/18 10:51 Dose: 1,000 mg Aspirin (Aspirin Chewable) 81 mg GT DAILY [facility] Last Admin: 08/11/18 09:49 Dose: 81 mg Bacitracin (Bacitracin) 1 gm TOP BID [facility] Last Admin: 08/11/18 18:14 Dose: 1 appl Insulin Aspart (Novolog) 0 unit SC Q6 [facility]; Protocol Last Admin: 08/12/18 06:00 Dose: 6 units Insulin Glargine (Lantus) 15 unit SC Q12 [facility] Last Admin: 08/11/18 22:44 Dose: 15 u Lactobacillus Acidophilus (Bacid Acidophilus) 1 cap PEG Q12H [facility] Methimazole (Tapazole) 20 mg PO Q8 [facility] Last Admin: 08/12/18 06:01 Dose: 20 mg Modafinil (Provigil) 100 mg PEG DAILY [facility] Last Admin: 08/07/18 09:17 Dose: Not Given Multivitamins (Hexavitamin) 1 tab PEG DAILY [facility] Last Admin: 08/11/18 09:50 Dose: 1 tab Pantoprazole Sodium (Protonix Susp) 40 mg PEG DAILY [facility] Propranolol HCl (Inderal) 5 mg PEG TID [facility] Quetiapine Fumarate (Seroquel) 25 mg JT Q12H [facility] Vitamin A (Vitamin A & D Oint Ud Foilpak) 1 ea TOP BID [facility] Last Admin: 08/11/18 18:13 Dose: 1 ea - Labs Labs: 08/12/18 06:26 08/12/18 06:26 PT 17.7 SECONDS (9.7-12.2) H 07/28/18 06:19 INR 1.6 07/28/18 06:19 APTT 52 SECONDS (21-34) H 07/31/18 05:56 - Respiratory Exam Respiratory Exam: Decreased Breath Sounds, Clear to Ausculation Bilateral. absent: Stridor - GI/Abdominal Exam GI & Abdominal Exam: absent: Rebound - Extremities Exam Additional comments: no scd over left lower extremity Assessment and Plan (1) Septic shock Status: Acute (2) Acute respiratory failure Status: Acute (3) Urinary tract infection Status: Acute (4) Acute renal failure Status: Acute (5) Aspiration pneumonia Status: Acute (6) Diabetes mellitus Status: Chronic (7) Ventricular arrhythmia Status: Acute (8) Hyperthyroidism Status: Acute (9) Anemia Status: Acute (10) Prophylactic measure Status: Acute Attending/Attestation - Attestation I have personally seen and examined this patient.: Yes I have fully participated in the care of the patient.: Yes I have reviewed all pertinent clinical information, including history, physical exam and plan: Yes Notes (Text): Patient has temperature of 100.8F. Recultured including blood cultures, procalcitionin, UA/Urine culture. Unable to ROS given language barrier and anoxic brain injury. Patient will need aggressive rehab and physical conditioning. not present at bedside this morning but usually comes daily. Assessment/[place] 1) Septic Shock Pneumonia Urinary Tract Infection Assessment/Plan * Infectious Disease (Dr. Brock) on case-->help appreciated * MRSA not detected * Antibiotics * off antibiotics * Treated for pneumonia and uti during hospitalization * Patient had low grade fever at 100.8F * Recultured today-->f/u cultures 2) Acute Respiratory Failure Pulmonary Edema Bilateral Pleural Effusion and Consolidations Likely Secondary to Aspiration Pneumonia Anoxic Encephalopagty Assessment/Plan * On trach collar trial * Patient had two code blues (07/10; 07/20) during hospitalizations * Will repeat chest xray today in light of 100.8F 3) Anoxic Encephalopathy Ventricular Tachycardia NSTEMI Apical Thrombus LLE DVT Assessment/Plan * Code Blue 07/10: SVT==>VT required amiodarone, magnesium, one shock delivered * Code Blue 07/20: vtach s/p amiodarone, fluid, calcium gluconate, required compressions and shock * Cardiology Dr Francisco on case help appreciated * No cath needed. * Medical management * Echocardiogram (07/07/18): left ventricle systolic function is borderline, ejection fraction is 45-50%, no aortic regurgitation is present, mitral regurgitation is mild. Mild tricuspid regurgitation. mild pulmonary hypertension, mild pulmonic valvular regurgitation * Contrast Echo: Large apical hypokinesis a large 30 x 20 mm soft tissue apical sessile mass suggestive of thrombus overall fraction 40%. Obtain a HUBERT or/consider stress card myopathy if coronary disease is excluded further findings per report * Monitor electrolytes Via Peg * Eliquis 5 mg PO BID * Aspirin 81 mg PO 1x/day * Propranolol 5mg PO TID restart 08/08/18 * Crestor 2.5 mg PO HS 4) Urinary Tract Infection Assessment/Plan * Infectious disease on board help appreciated * UTI treated during hospitalization * Patient had fever 100.8F-->recultured today 5) Diabetes-->chronic Assessment/Plan * HgBA1c: 7.8 * Hypoglycemic protocol * Lantus 15 units subcutaneous at bedtime Q12 6) Acute on Chronic Renal Failure Assessment/Plan * Nephrology (Dr. Hyde) on board--> help appreciated * Patient will likely not need dialysis * Renal function continues to improve 7) Hyperthyroidism? Low TSH, and Free T4 Thyroid Storm Assessment/Plan * Note Thyroid studies taken before amiodarone was given (please advised this is not amiodarone induced her levels were abnormal prior) * Patient does not have prior thyroid history * Endocrinology (Dr. 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 She will need outpatient FNA Bx of the complex Left Lobe cyst (please see full report) * Methimazole 20mg PO TID * Propranolol 5 mg PO TID was discontinued 08/03/18; restart 08/08/18 * Monitor LFTs 8) Anemia Likely Secondary to Chronic Diseases Assessment/Plan * Iron normal, TIBC low, Iron Saturation normal, Ferritin normal * Stool occult blood negative * B12 normal * Folate Normal * Transfused 1 unit PRBC 07/22/18 * Patient is on Eliquis restarted on 07/31/18 given apical thrombus 9) Transminitis-->improving * Likely secondary to Sepsis and Amiodarone (which was discontinued) * Hepatitis serology negative * Slightly elevated from normal on 07/20/18 but could be secondary to [employer]/Code Blue 07/20/18 10) Vitamin D deficiency Assessment plan * 50,000 international units once a week for at least 8-12 weeks started on 07/11/18 11) Thrombocytopenia-->resolved Assessment plan * Sepsis, vs Methimazole? * Fibrinogen elevated * HIT and RUSTY both negative for HIT * Currently normalized 12) 13 mm Left Adrenal Nodule * As seen on CT Chest 07/16/18 * Will need outpatient follow up for cross sectional imaging for better characterization 13) Hypernatremia-->resolved * Free water 250 ml 3x/day via OGT * Na now normal 14) LLE DVT * Eliquis 5 mg PO BID restarted on 07/31/18 * Acute thrombosis of the left common femoral and femoral veins with severe re duction of the venous return on 07/18/18 venous doppler 15) Deconditioning * Patient needs continued PT/OT 16) Prophylactic measure * Protonix 40mg PO BID * Lactobacillus 1 cap PO BID * MVI 1x/day * Vitamin C 1,000 NG 1x/day * Trach and Peg * SCD on Right and contraindicated on Left due to DVT * Peg feedings * PICC Line 07/31/18 * Seroquel 12.5mg PO Q12H * Note: speak to patient in alexis to assess neurologic status-->she does follow Disposition: Patient does not have insurance: please f/u with social/case management to start insurance process for potential LTAC/rehab. She will need significant rehab to regain muscle and strength. Patient is on trach collar. Patient has fever of 100.8F required reculturing.
[2018-08-12 06:30] LABS: BASO # 0.1 K/uL (0.0-0.2); BASO % 1.1 % (0.0-2.0); EOS # 0.3 K/uL (0.0-0.7); EOS % 3.5 % (0.0-4.0); LYMPH # 2.4 K/uL (1.0-4.3); LYMPH % 24.4 % (20.0-40.0); MEAN CELL VOLUME 88.3 fL (81.0-99.0); MEAN CORPUSCULAR HEMOGLOBIN 29.2 pg (27.0-31.0); MEAN CORPUSCULAR HGB CONC 33.1 g/dL (33.0-37.0); MONO # 0.9 K/uL (0.0-0.8); MONO % 8.7 % (0.0-10.0); NEUT # 6.2 K/uL (1.8-7.0); NEUT % 62.3 % (50.0-75.0); RBC 2.73 Mil/uL (3.80-5.20); RED CELL DISTRIBUTION WIDTH 14.7 % (11.5-14.5)
[2018-08-12 06:47] LABS: ALB/GLOB RATIO 0.9 (1.0-2.1); ALBUMIN 3.3 g/dL (3.5-5.0); ALT/SGPT 81 U/L (9-52); AST/SGOT 81 U/L (14-36); BLOOD UREA NITROGEN 41 mg/dL (7-17); CALCIUM 9.5 mg/dl (8.6-10.4); GFR NON-AFRICAN AMERICAN 52
[2018-08-12] MEDS: Lactobacillus Acidophilus 500 MU Cap PO SCH (08:00)
[2018-08-12] MEDS: Lactobacillus Acidophilus 500 MU Cap PEG SCH ×2 (09:28→23:03)
[2018-08-12] MEDS: Pantoprazole 40 mg Susp UD PEG SCH (09:29)
[2018-08-12] MEDS: Propranolol 5 mg Tab PEG SCH ×3 (09:29→17:08)
[2018-08-12] MEDS: Vitamins A & D Oint UD Foilpak TOP SCH ×2 (09:29→17:07)
[2018-08-12] MEDS: Multiple Vitamins Tab PEG SCH (09:29)
[2018-08-12] MEDS: Bacitracin Ointment 30 GM TUBE TOP SCH ×2 (09:30→17:08)
[2018-08-12] MEDS: (Lantus) Insulin Glargine, Recombinant SC SCH ×2 (09:31→23:03)
[2018-08-12 12:35] LABS: SQUAMOUS EPITHIAL 9 /hpf (0-5); URINE BACTERIA RARE (<OCC); URINE BILIRUBIN NEGATIVE (NEGATIVE); URINE BLOOD NEGATIVE (NEGATIVE); URINE CLARITY Hazy (Clear); URINE COLOR Yellow (YELLOW); URINE GLUCOSE (UA) NORMAL (Normal); URINE LEUKOCYTE ESTERASE NEG Leu/uL (Negative); URINE PROTEIN NEGATIVE (NEGATIVE); URINE UROBILINOGEN NORMAL mg/dL (0.2-1.0)
--- NOTE | 2018-08-12 15:07 | RAD ---
Date of service: 08/12/2018 HISTORY: fever, prior pneumonia COMPARISON: No prior. FINDINGS: In situ tracheostomy tube remains in good position. LUNGS: There is homogeneous opacity in the left lung base with a silhouetting of the left hemidiaphragm. Findings could represent sequela of atelectasis-infiltrate with effusion. Mild linear-curvilinear atelectasis right mid lung field PLEURA: No significant pleural effusion identified, no pneumothorax apparent. CARDIOVASCULAR: Mild aortic atherosclerotic calcification present. Normal cardiac size. No pulmonary vascular congestion. OSSEOUS STRUCTURES: No significant abnormalities. VISUALIZED UPPER ABDOMEN: Normal. OTHER FINDINGS: None. IMPRESSION: There is homogeneous opacity in the left lung base with a silhouetting of the left hemidiaphragm. Findings could represent sequela of atelectasis-infiltrate with effusion. . Mild linear-curvilinear atelectasis right mid lung field
[2018-08-13] MEDS: (Novolog) Insulin Aspart, Recombinant 100 u/ml 10 ml vial SC SCH ×4 (01:25→17:51)
[2018-08-13 06:09] LABS: BASO # 0.1 K/uL (0.0-0.2); BASO % 0.5 % (0.0-2.0); EOS # 0.1 K/uL (0.0-0.7); EOS % 0.5 % (0.0-4.0); HEMOGLOBIN 7.4 g/dL (11.0-16.0); LYMPH # 1.9 K/uL (1.0-4.3); LYMPH % 13.8 % (20.0-40.0); MEAN CELL VOLUME 89.2 fL (81.0-99.0); MEAN CORPUSCULAR HGB CONC 33.7 g/dL (33.0-37.0); MEAN PLATELET VOLUME 7.9 fL (7.2-11.7); MONO # 0.9 K/uL (0.0-0.8); MONO % 6.4 % (0.0-10.0); NEUT # 10.9 K/uL (1.8-7.0); NEUT % 78.8 % (50.0-75.0); RBC 2.45 Mil/uL (3.80-5.20); RED CELL DISTRIBUTION WIDTH 14.8 % (11.5-14.5); WHITE BLOOD COUNT 13.8 K/uL (4.8-10.8)
[2018-08-13 06:27] LABS: ALB/GLOB RATIO 0.8 (1.0-2.1); CALCIUM 9.3 mg/dl (8.6-10.4)
--- NOTE | 2018-08-13 09:45 | CP.PCM.PN ---
<[email or web address] - Last Filed: 08/13/18 13:37> Subjective - Date & Time of Evaluation Date of Evaluation: 08/13/18 Time of Evaluation: 09:42 - Subjective Subjective: Amrita Villegas PGY1 Progress note Pt was examined at bedside this morning. She was moving her upper limbs, and made eye contact. She was not able to respond to questions. ROS was not able to be obtained. Objective - Vital Signs/Intake and Output Vital Signs (last 24 hours): Temp Pulse Resp BP Pulse Ox 98.9 F 85 19 92/44 L 100 08/13/18 04:00 08/13/18 04:00 08/13/18 04:00 08/13/18 04:00 08/13/18 04:00 Intake and Output: 08/13/18 08/13/18 06:59 18:59 Intake Total 810 Balance 810 - Medications Medications: Current Medications Acetaminophen (Tylenol 650mg/20.3ml Solution Ud) 650 mg PEG Q6 PRN Albuterol/Ipratropium (Duoneb 3 Mg/0.5 Mg (3 Ml) Ud) 3 ml INH RQ4 PRN PRN Reason: Shortness of Breath Last Admin: 08/11/18 20:34 Dose: 3 ml Apixaban (Eliquis) 5 mg PEG BID [facility] Last Admin: 08/12/18 17:08 Dose: 5 mg Ascorbic Acid (Vitamin C 500 Mg Tab) 1,000 mg NG DAILY [facility] Last Admin: 08/12/18 09:29 Dose: 1,000 mg Aspirin (Aspirin Chewable) 81 mg GT DAILY [facility] Last Admin: 08/12/18 09:30 Dose: 81 mg Bacitracin (Bacitracin) 1 gm TOP BID [facility] Last Admin: 08/12/18 17:08 Dose: 1 appl Insulin Aspart (Novolog) 0 unit SC Q6 [facility]; Protocol Last Admin: 08/13/18 05:02 Dose: 2 units Insulin Glargine (Lantus) 15 unit SC Q12 [facility] Last Admin: 08/12/18 23:03 Dose: 15 u Lactobacillus Acidophilus (Bacid Acidophilus) 1 cap PEG Q12 [facility] Last Admin: 08/12/18 23:03 Dose: 1 cap Methimazole (Tapazole) 20 mg PO Q8 [facility] Last Admin: 08/13/18 05:02 Dose: 20 mg Modafinil (Provigil) 100 mg PEG DAILY [facility] Last Admin: 08/07/18 09:17 Dose: Not Given Multivitamins (Hexavitamin) 1 tab PEG DAILY [facility] Last Admin: 08/12/18 09:29 Dose: 1 tab Pantoprazole Sodium (Protonix Susp) 40 mg PEG DAILY [facility] Last Admin: 08/12/18 09:29 Dose: 40 mg Propranolol HCl (Inderal) 5 mg PEG TID [facility] Last Admin: 08/12/18 17:08 Dose: 5 mg Quetiapine Fumarate (Seroquel) 25 mg JT Q12 [facility] Last Admin: 08/12/18 23:09 Dose: 25 mg Vitamin A (Vitamin A & D Oint Ud Foilpak) 1 ea TOP BID [facility] Last Admin: 08/12/18 17:07 Dose: 1 ea - Labs Labs: 08/13/18 06:01 08/13/18 06:01 PT 17.7 SECONDS (9.7-12.2) H 07/28/18 06:19 INR 1.6 07/28/18 06:19 APTT 52 SECONDS (21-34) H 07/31/18 05:56 - Constitutional Appears: No Acute Distress, Chronically Ill - Head Exam Head Exam: ATRAUMATIC, NORMOCEPHALIC - Eye Exam Eye Exam: EOMI, Normal appearance - ENT Exam ENT Exam: Mucous Membranes Moist Additional comments: trache site clean, dry, intact - Respiratory Exam Respiratory Exam: Clear to Ausculation Bilateral, NORMAL BREATHING PATTERN. absent: Rales, Rhonchi, Wheezes - Cardiovascular Exam Cardiovascular Exam: REGULAR RHYTHM, +S1, +S2. absent: Gallop, Rubs, Murmur - GI/Abdominal Exam GI & Abdominal Exam: Soft. absent: Distended, Firm - Extremities Exam Extremities Exam: absent: Pedal Edema - Neurological Exam Neurological Exam: Alert, Awake. absent: Oriented x3 Assessment and Plan - Assessment and Plan (Free Text) Plan: Septic Shock Pneumonia Urinary Tract Infection * Infectious Disease (Dr. Brock) on case-->help appreciated * MRSA not detected * Antibiotics * off antibiotics * Treated for pneumonia and uti during hospitalization * Patient had low grade fever at 100.8F * Recultured: UCx Gram +cocci * BCx negative x1 * CXR 08/12: atelectasis/infiltrate in L lung base, atelectasis in R mid lung 2) Acute Respiratory Failure Pulmonary Edema Bilateral Pleural Effusion and Consolidations Likely Secondary to Aspiration Pneumonia Anoxic Encephalopagty Assessment/Plan * On trach collar trial * Patient had two code blues (07/10; 07/20) during hospitalizations * CXR 08/12: atelectasis/infiltrate in L lung base, atelectasis in R mid lung 3) Anoxic Encephalopathy Ventricular Tachycardia NSTEMI Apical Thrombus LLE DVT Assessment/Plan * Code Blue 07/10: SVT==>VT required amiodarone, magnesium, one shock delivered * Code Blue 07/20: vtach s/p amiodarone, fluid, calcium gluconate, required compressions and shock * Cardiology Dr Francisco on case help appreciated * No cath needed. * Medical management * Echocardiogram (07/07/18): left ventricle systolic function is borderline, ejection fraction is 45-50%, no aortic regurgitation is present, mitral regurgitation is mild. Mild tricuspid regurgitation. mild pulmonary hypertension, mild pulmonic valvular regurgitation * Contrast Echo: Large apical hypokinesis a large 30 x 20 mm soft tissue apical sessile mass suggestive of thrombus overall fraction 40%. Obtain a HUBERT or/consider stress card myopathy if coronary disease is excluded further findings per report * Monitor electrolytes Via Peg * Eliquis 5 mg PO BID * Aspirin 81 mg PO 1x/day * Propranolol 5mg PO TID restart 08/08/18 * Crestor 2.5 mg PO HS 4) Urinary Tract Infection Assessment/Plan * Infectious disease on board help appreciated * UTI treated during hospitalization * Patient had fever 100.8F * UCx Gram +cocci upon reculture 5) Diabetes-->chronic Assessment/Plan * HgBA1c: 7.8 * Hypoglycemic protocol * Lantus 15 units subcutaneous at bedtime Q12 6) Acute on Chronic Renal Failure Assessment/Plan * Nephrology (Dr. Hyde) on board--> help appreciated * Patient will likely not need dialysis * Renal function continues to improve 7) Hyperthyroidism? Low TSH, and Free T4 Thyroid Storm Assessment/Plan * Note Thyroid studies taken before amiodarone was given (please advised this is not amiodarone induced her levels were abnormal prior) * Patient does not have prior thyroid history * Endocrinology (Dr. 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 She will need outpatient FNA Bx of the complex Left Lobe cyst (please see full report) * Methimazole 20mg PO TID * Propranolol 5 mg PO TID was discontinued 08/03/18; restart 08/08/18 * Monitor LFTs 8) Anemia Likely Secondary to Chronic Diseases Assessment/Plan * Iron normal, TIBC low, Iron Saturation normal, Ferritin normal * Stool occult blood negative * B12 normal * Folate Normal * Transfused 1 unit PRBC 07/22/18 * Patient is on Eliquis restarted on 07/31/18 given apical thrombus 9) Transminitis-->improving * Likely secondary to Sepsis and Amiodarone (which was discontinued) * Hepatitis serology negative 10) Vitamin D deficiency Assessment plan * 50,000 international units once a week for at least 8-12 weeks started on 07/11/18 11) Thrombocytopenia-->resolved Assessment plan * Sepsis, vs Methimazole? * Fibrinogen elevated * HIT and RUSTY both negative for HIT * Currently normalized 12) 13 mm Left Adrenal Nodule * As seen on CT Chest 07/16/18 * Will need outpatient follow up for cross sectional imaging for better characterization 13) Hypernatremia-->resolved * Free water 250 ml 3x/day via OGT * Na now normal 14) LLE DVT * Eliquis 5 mg PO BID restarted on 07/31/18 * Acute thrombosis of the left common femoral and femoral veins with severe reduction of the venous return on 07/18/18 venous doppler 15) Deconditioning * Patient needs continued PT/OT 16) Prophylactic measure * Protonix 40mg PO BID * Lactobacillus 1 cap PO BID * MVI 1x/day * Vitamin C 1,000 NG 1x/day * Trach and Peg * SCD on Right and contraindicated on Left due to DVT * Peg feedings * PICC Line 07/31/18 * Seroquel 12.5mg PO Q12H * Note: speak to patient in alexis to assess neurologic status-->she does follow Disposition: Patient does not have insurance: please f/u with social/case management to start insurance process for potential LTAC/rehab. She will need significant rehab to regain muscle and strength. Patient is on trach collar. <Sean Manjarrez - Last Filed: 08/13/18 18:58> Objective - Vital Signs/Intake and Output Vital Signs (last 24 hours): Temp Pulse Resp BP Pulse Ox 97.5 F L 93 H 20 108/51 L 93 L 08/13/18 16:00 08/13/18 16:00 08/13/18 16:00 08/13/18 16:00 08/13/18 16:00 Intake and Output: 08/13/18 08/13/18 06:59 18:59 Intake Total 810 Balance 810 - Medications Medications: Current Medications Acetaminophen (Tylenol 650mg/20.3ml Solution Ud) 650 mg PEG Q6 PRN Albuterol/Ipratropium (Duoneb 3 Mg/0.5 Mg (3 Ml) Ud) 3 ml INH RQ4 PRN PRN Reason: Shortness of Breath Last Admin: 08/11/18 20:34 Dose: 3 ml Apixaban (Eliquis) 5 mg PEG BID [facility] Last Admin: 08/13/18 17:49 Dose: 5 mg Ascorbic Acid (Vitamin C 500 Mg Tab) 1,000 mg NG DAILY [facility] Last Admin: 08/13/18 10:24 Dose: 1,000 mg Aspirin (Aspirin Chewable) 81 mg GT DAILY [facility] Last Admin: 08/13/18 10:24 Dose: 81 mg Bacitracin (Bacitracin) 1 gm TOP BID [facility] Last Admin: 08/13/18 17:49 Dose: 1 appl Insulin Aspart (Novolog) 0 unit SC Q6 [facility]; Protocol Last Admin: 08/13/18 17:51 Dose: 8 units Insulin Glargine (Lantus) 15 unit SC Q12 [facility] Last Admin: 08/13/18 10:41 Dose: 15 u Lactobacillus Acidophilus (Bacid Acidophilus) 1 cap PEG Q12 [facility] Last Admin: 08/13/18 10:24 Dose: 1 cap Methimazole (Tapazole) 20 mg PO Q8 [facility] Last Admin: 08/13/18 14:19 Dose: 20 mg Modafinil (Provigil) 100 mg PEG DAILY [facility] Last Admin: 08/07/18 09:17 Dose: Not Given Multivitamins (Hexavitamin) 1 tab PEG DAILY [facility] Last Admin: 08/13/18 10:24 Dose: 1 tab Pantoprazole Sodium (Protonix Susp) 40 mg PEG DAILY [facility] Last Admin: 08/13/18 10:24 Dose: 40 mg Propranolol HCl (Inderal) 5 mg PEG TID [facility] Last Admin: 08/13/18 17:45 Dose: 5 mg Quetiapine Fumarate (Seroquel) 25 mg JT Q12 [facility] Last Admin: 08/13/18 10:24 Dose: 25 mg Vitamin A (Vitamin A & D Oint Ud Foilpak) 1 ea TOP BID [facility] Last Admin: 08/13/18 17:44 Dose: 1 ea - Labs Labs: 08/13/18 18:31 08/13/18 06:01 PT 17.7 SECONDS (9.7-12.2) H 07/28/18 06:19 INR 1.6 07/28/18 06:19 APTT 52 SECONDS (21-34) H 07/31/18 05:56 Addendum Addendum: Patient noted noted be anemic. Hb of 7.1 on repeat H&H Will transfuse 2 units of pRBC's with repeat H&H post transfusion anemia workup including stool for occult blood, pelvic u/s given patient spotting, iron panel Further diagnostics/workup as hospital course progresses
[2018-08-13] MEDS: Lactobacillus Acidophilus 500 MU Cap PEG SCH ×2 (10:24→21:49)
[2018-08-13] MEDS: Multiple Vitamins Tab PEG SCH (10:24)
[2018-08-13] MEDS: Pantoprazole 40 mg Susp UD PEG SCH (10:24)
[2018-08-13] MEDS: Propranolol 5 mg Tab PEG SCH ×3 (10:24→17:45)
[2018-08-13] MEDS: (Lantus) Insulin Glargine, Recombinant SC SCH ×2 (10:41→21:49)
[2018-08-13] MEDS: Bacitracin Ointment 30 GM TUBE TOP SCH ×2 (10:42→17:49)
[2018-08-13] MEDS: Vitamins A & D Oint UD Foilpak TOP SCH ×2 (10:42→17:44)
[2018-08-13 18:34] LABS: HEMOGLOBIN 7.1 g/dL (11.0-16.0)
[2018-08-13] MEDS: Albuterol-Ipratrop 3 mg / 0.5 (3 ml) UD INH PRN (19:00)
[2018-08-14] MEDS: (Novolog) Insulin Aspart, Recombinant 100 u/ml 10 ml vial SC SCH ×4 (01:50→17:47)
[2018-08-14] MEDS: Acetaminophen 650mg/20.3ml solution UD PEG PRN (02:25)
[2018-08-14 07:05] LABS: BASO # 0.1 K/uL (0.0-0.2); BASO % 0.7 % (0.0-2.0); EOS # 0.1 K/uL (0.0-0.7); EOS % 0.9 % (0.0-4.0); HEMOGLOBIN 10.1 g/dL (11.0-16.0); LYMPH # 2.3 K/uL (1.0-4.3); MEAN CELL VOLUME 88.4 fL (81.0-99.0); MEAN CORPUSCULAR HEMOGLOBIN 29.4 pg (27.0-31.0); MEAN CORPUSCULAR HGB CONC 33.2 g/dL (33.0-37.0); MEAN PLATELET VOLUME 8.1 fL (7.2-11.7); MONO # 1.1 K/uL (0.0-0.8); MONO % 7.9 % (0.0-10.0); NEUT # 9.8 K/uL (1.8-7.0); NEUT % 73.5 % (50.0-75.0); NRBC % 0.1 % (0.0-2.0); RBC 3.45 Mil/uL (3.80-5.20); RED CELL DISTRIBUTION WIDTH 14.4 % (11.5-14.5); WHITE BLOOD COUNT 13.3 K/uL (4.8-10.8)
--- NOTE | 2018-08-14 07:48 | CP.PCM.PCO ---
Physician Communication Note - Physician Communication Note Physician Communication Note: patient needs intensive rehab, oob, and suctioning when she desaturates.
[2018-08-14 08:11] LABS: ALB/GLOB RATIO 0.8 (1.0-2.1); ALBUMIN 2.9 g/dL (3.5-5.0); BLOOD UREA NITROGEN 57 mg/dL (7-17); GFR NON-AFRICAN AMERICAN 52
[2018-08-14 08:12] LABS: ALT/SGPT 46 U/L (9-52); AST/SGOT 34 U/L (14-36)
[2018-08-14] MEDS: Multiple Vitamins Tab PEG SCH (09:35)
[2018-08-14] MEDS: Pantoprazole 40 mg Susp UD PEG SCH (09:35)
[2018-08-14] MEDS: Vitamins A & D Oint UD Foilpak TOP SCH ×2 (09:35→17:45)
[2018-08-14] MEDS: Propranolol 5 mg Tab PEG SCH ×3 (09:36→17:46)
[2018-08-14] MEDS: Lactobacillus Acidophilus 500 MU Cap PEG SCH ×2 (09:37→22:30)
[2018-08-14] MEDS: (Lantus) Insulin Glargine, Recombinant SC SCH ×2 (09:38→22:30)
[2018-08-14] MEDS: Bacitracin Ointment 30 GM TUBE TOP SCH ×2 (09:42→17:48)
--- NOTE | 2018-08-14 16:50 | CP.PCM.PN ---
<Elijah Weinberg - Last Filed: 08/14/18 17:10> Subjective - Date & Time of Evaluation Date of Evaluation: 08/14/18 Time of Evaluation: 16:50 - Subjective Subjective: PGY-[address] Merry Nesbitt Pt was examined at bedside this morning. Patient was unarousable with tapping of the extremities and sternal rub. She did withdraw to pain on exam. Per nursing, patient did have a BM today. Pt could not work with patient today as she was unable to be woken. ROS was not able to be obtained. Objective - Vital Signs/Intake and Output Vital Signs (last 24 hours): Temp Pulse Resp BP Pulse Ox 98.1 F 69 16 97/54 L 100 08/14/18 12:00 08/14/18 12:00 08/14/18 12:00 08/14/18 12:00 08/14/18 12:00 Intake and Output: 08/14/18 08/14/18 06:59 18:59 Intake Total 1530 Balance 1530 - Medications Medications: Current Medications Acetaminophen (Tylenol 650mg/20.3ml Solution Ud) 650 mg PEG Q6 PRN Last Admin: 08/14/18 02:25 Dose: 650 mg Albuterol/Ipratropium (Duoneb 3 Mg/0.5 Mg (3 Ml) Ud) 3 ml INH RQ4 PRN PRN Reason: Shortness of Breath Last Admin: 08/13/18 19:00 Dose: 3 ml Apixaban (Eliquis) 5 mg PEG BID [facility] Last Admin: 08/14/18 09:41 Dose: 5 mg Ascorbic Acid (Vitamin C 500 Mg Tab) 1,000 mg NG DAILY [facility] Last Admin: 08/14/18 09:35 Dose: 1,000 mg Aspirin (Aspirin Chewable) 81 mg GT DAILY [facility] Last Admin: 08/14/18 09:35 Dose: 81 mg Bacitracin (Bacitracin) 1 gm TOP BID [facility] Last Admin: 08/14/18 09:42 Dose: 1 appl Insulin Aspart (Novolog) 0 unit SC Q6 [facility]; Protocol Last Admin: 08/14/18 12:00 Dose: Not Given Insulin Glargine (Lantus) 15 unit SC Q12 [facility] Last Admin: 08/14/18 09:38 Dose: 15 u Lactobacillus Acidophilus (Bacid Acidophilus) 1 cap PEG Q12 [facility] Last Admin: 08/14/18 09:37 Dose: 1 cap Methimazole (Tapazole) 20 mg PO Q8 [facility] Last Admin: 08/14/18 13:28 Dose: 20 mg Modafinil (Provigil) 100 mg PEG DAILY [facility] Last Admin: 08/07/18 09:17 Dose: Not Given Multivitamins (Hexavitamin) 1 tab PEG DAILY [facility] Last Admin: 08/14/18 09:35 Dose: 1 tab Pantoprazole Sodium (Protonix Susp) 40 mg PEG DAILY [facility] Last Admin: 08/14/18 09:35 Dose: 40 mg Propranolol HCl (Inderal) 5 mg PEG TID [facility] Last Admin: 08/14/18 13:28 Dose: 5 mg Quetiapine Fumarate (Seroquel) 25 mg JT Q12 [facility] Last Admin: 08/14/18 09:37 Dose: 25 mg Vitamin A (Vitamin A & D Oint Ud Foilpak) 1 ea TOP BID [facility] Last Admin: 08/14/18 09:35 Dose: 1 ea - Labs Labs: 08/14/18 06:55 08/14/18 06:55 PT 17.7 SECONDS (9.7-12.2) H 07/28/18 06:19 INR 1.6 07/28/18 06:19 APTT 52 SECONDS (21-34) H 07/31/18 05:56 - Constitutional Appears: No Acute Distress, Chronically Ill - Head Exam Head Exam: ATRAUMATIC, NORMOCEPHALIC - Eye Exam Eye Exam: EOMI, Normal appearance - ENT Exam ENT Exam: Mucous Membranes Moist - Neck Exam Additional comments: Trach in place, with some surrounding clear fluid. Connected to vent. - Respiratory Exam Respiratory Exam: Clear to Ausculation Bilateral (On vent). absent: Rales, Rhonchi, Wheezes - GI/Abdominal Exam GI & Abdominal Exam: Soft, Normal Bowel Sounds - Neurological Exam Neurological Exam: absent: Alert, Awake Additional comments: Not arousable w sternal rub, on vent. Withdraws to pain. - Psychiatric Exam Additional comments: Unable to assess - Skin Skin Exam: Dry, Intact, Normal Color, Warm Assessment and Plan - Assessment and Plan (Free Text) Assessment: Septic Shock Pneumonia Urinary Tract Infection * Infectious Disease (Dr. Brock) on case-->help appreciated * MRSA not detected * Antibiotics * off antibiotics * Treated for pneumonia and uti during hospitalization * Patient had low grade fever at 100.8F * Recultured: UCx Gram +cocci * BCx negative x1 * CXR 08/12: atelectasis/infiltrate in L lung base, atelectasis in R mid lung 2) Acute Respiratory Failure Pulmonary Edema Bilateral Pleural Effusion and Consolidations Likely Secondary to Aspiration Pneumonia Anoxic Encephalopagty Assessment/Plan * On trach collar trial * Patient had two code blues (07/10; 07/20) during hospitalizations * CXR 08/12: atelectasis/infiltrate in L lung base, atelectasis in R mid lung 3) Anoxic Encephalopathy Ventricular Tachycardia NSTEMI Apical Thrombus LLE DVT Assessment/Plan * Code Blue 07/10: SVT==>VT required amiodarone, magnesium, one shock delivered * Code Blue 07/20: vtach s/p amiodarone, fluid, calcium gluconate, required compressions and shock * Cardiology Dr Francisco on case help appreciated * No cath needed. * Medical management * Echocardiogram (07/07/18): left ventricle systolic function is borderline, ejection fraction is 45-50%, no aortic regurgitation is present, mitral regurgitation is mild. Mild tricuspid regurgitation. mild pulmonary hypertension, mild pulmonic valvular regurgitation * Contrast Echo: Large apical hypokinesis a large 30 x 20 mm soft tissue apical sessile mass suggestive of thrombus overall fraction 40%. Obtain a HUBERT or/consider stress card myopathy if coronary disease is excluded further findings per report * Monitor electrolytes Via Peg * Eliquis 5 mg PO BID * Aspirin 81 mg PO 1x/day * Propranolol 5mg PO TID restart 08/08/18 * Crestor 2.5 mg PO HS 4) Urinary Tract Infection Assessment/Plan * Infectious disease on board help appreciated * UTI treated during hospitalization * Patient had fever 100.8F * UCx Gram +cocci upon reculture 5) Diabetes-->chronic Assessment/Plan * HgBA1c: 7.8 * Hypoglycemic protocol * Lantus 15 units subcutaneous at bedtime Q12 6) Acute on Chronic Renal Failure Assessment/Plan * Nephrology (Dr. Hyde) on board--> help appreciated * Patient will likely not need dialysis * Renal function continues to improve 7) Hyperthyroidism? Low TSH, and Free T4 Thyroid Storm Assessment/Plan * Note Thyroid studies taken before amiodarone was given (please advised this is not amiodarone induced her levels were abnormal prior) * Patient does not have prior thyroid history * Endocrinology (Dr. 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 She will need outpatient FNA Bx of the complex Left Lobe cyst (please see full report) * Methimazole 20mg PO TID * Propranolol 5 mg PO TID was discontinued 08/03/18; restart 08/08/18 * Monitor LFTs 8) Anemia Likely Secondary to Chronic Diseases Assessment/Plan * Iron normal, TIBC low, Iron Saturation normal, Ferritin normal * Stool occult blood negative * B12 normal * Folate Normal * Transfused 1 unit PRBC 07/22/18 * Patient is on Eliquis restarted on 07/31/18 given apical thrombus 9) Transminitis-->improving * Likely secondary to Sepsis and Amiodarone (which was discontinued) * Hepatitis serology negative 10) Vitamin D deficiency Assessment plan * 50,000 international units once a week for at least 8-12 weeks started on 07/11/18 11) Thrombocytopenia-->resolved Assessment plan * Sepsis, vs Methimazole? * Fibrinogen elevated * HIT and RUSTY both negative for HIT * Currently normalized 12) 13 mm Left Adrenal Nodule * As seen on CT Chest 07/16/18 * Will need outpatient follow up for cross sectional imaging for better characterization 13) Hypernatremia-->resolved * Free water 250 ml 3x/day via OGT * Na now normal 14) LLE DVT * Eliquis 5 mg PO BID restarted on 07/31/18 * Acute thrombosis of the left common femoral and femoral veins with severe reduction of the venous return on 07/18/18 venous doppler 15) Deconditioning * Patient needs continued PT/OT * PT worked with patient on 07/12, unable to wake patient today, will attempt again tomorrow. 16) Prophylactic measure * Protonix 40mg PO BID * Lactobacillus 1 cap PO BID * MVI 1x/day * Vitamin C 1,000 NG 1x/day * Trach and Peg * Follow peg intake * SCD on Right and contraindicated on Left due to DVT * Peg feedings * PICC Line 07/31/18 * Seroquel 12.5mg PO Q12H * Note: speak to patient in alexis to assess neurologic status-->she does follow Disposition: Patient does not have insurance: please f/u with social/case management to start insurance process for potential LTAC/rehab. She will need significant rehab to regain muscle and strength. Patient is on trach collar. <[place] N[place]itt - Last Filed: 08/14/18 18:54> Objective - Vital Signs/Intake and Output Vital Signs (last 24 hours): Temp Pulse Resp BP Pulse Ox 98.1 F 69 16 97/54 L 100 08/14/18 12:00 08/14/18 12:00 08/14/18 12:00 08/14/18 12:00 08/14/18 12:00 Intake and Output: 08/14/18 08/14/18 06:59 18:59 Intake Total 1530 Balance 1530 - Medications Medications: Current Medications Acetaminophen (Tylenol 650mg/20.3ml Solution Ud) 650 mg PEG Q6 PRN Last Admin: 08/14/18 02:25 Dose: 650 mg Albuterol/Ipratropium (Duoneb 3 Mg/0.5 Mg (3 Ml) Ud) 3 ml INH RQ4 PRN PRN Reason: Shortness of Breath Last Admin: 08/13/18 19:00 Dose: 3 ml Apixaban (Eliquis) 5 mg PEG BID [facility] Last Admin: 08/14/18 17:45 Dose: 5 mg Ascorbic Acid (Vitamin C 500 Mg Tab) 1,000 mg NG DAILY [facility] Last Admin: 08/14/18 09:35 Dose: 1,000 mg Aspirin (Aspirin Chewable) 81 mg GT DAILY [facility] Last Admin: 08/14/18 09:35 Dose: 81 mg Bacitracin (Bacitracin) 1 gm TOP BID [facility] Last Admin: 08/14/18 17:48 Dose: 1 appl Insulin Aspart (Novolog) 0 unit SC Q6 [facility]; Protocol Last Admin: 08/14/18 17:47 Dose: 2 units Insulin Glargine (Lantus) 15 unit SC Q12 [facility] Last Admin: 08/14/18 09:38 Dose: 15 u Lactobacillus Acidophilus (Bacid Acidophilus) 1 cap PEG Q12 [facility] Last Admin: 08/14/18 09:37 Dose: 1 cap Linezolid (Zyvox) 600 mg PO BID [facility]; Protocol Last Admin: 08/14/18 18:19 Dose: 600 mg Methimazole (Tapazole) 20 mg PO Q8 [facility] Last Admin: 08/14/18 13:28 Dose: 20 mg Modafinil (Provigil) 100 mg PEG DAILY [facility] Last Admin: 08/07/18 09:17 Dose: Not Given Multivitamins (Hexavitamin) 1 tab PEG DAILY [facility] Last Admin: 08/14/18 09:35 Dose: 1 tab Pantoprazole Sodium (Protonix Susp) 40 mg PEG DAILY [facility] Last Admin: 08/14/18 09:35 Dose: 40 mg Propranolol HCl (Inderal) 5 mg PEG TID [facility] Last Admin: 08/14/18 17:46 Dose: 5 mg Quetiapine Fumarate (Seroquel) 25 mg JT Q12 [facility] Last Admin: 08/14/18 09:37 Dose: 25 mg Vitamin A (Vitamin A & D Oint Ud Foilpak) 1 ea TOP BID [facility] Last Admin: 08/14/18 17:45 Dose: 1 ea - Labs Labs: 08/14/18 06:55 08/14/18 06:55 PT 17.7 SECONDS (9.7-12.2) H 07/28/18 06:19 INR 1.6 07/28/18 06:19 APTT 52 SECONDS (21-34) H 07/31/18 05:56 Attending/Attestation - Attestation I have personally seen and examined this patient.: Yes I have fully participated in the care of the patient.: Yes I have reviewed all pertinent clinical information, including history, physical exam and plan: Yes Notes (Text): 08/14/18 18:48 Patient was seen and examined at 6:15 PM 08/14/18 Urine Culture VRE+ and patient was placed Zyvox 600 mg PO 2x/day Blood Culture 08/12/18 is negative to date General: Trach on SIMV mode HEENT: NCA, Pupils are round and reactive to light, NO cervical/supraclavicular/submandibular lymphadenopathy Cardio: NS1 and NS2, NO M/R/G Respiratory: Diffuse course breath sounds bilaterallly GI: BSx4, Soft, ND, NO HSM, NO guarding, NO rebound tenderness, PEG Tube insertion site without evidence of surrounding cellulitis Ext: Pulses are strong and equal, Capillary Refill is 2 seconds, NO edema noted Neuro: exam not possible at this time Skin: Blanchable erythema noted on the lower buttocks area. NO other ulceration noted on any of the ophelia prominences 1) Septic Shock Pneumonia Urinary Tract Infection Assessment/Plan * Infectious Disease (Dr. Brock) on case-->help appreciated * Tmax: 101.7 F (07/19/18) * Afebrile since * Criteria: leukocytosis, tachycardia * Source: aspiration pneumonia and urinary tract infection * 07/07/18: Urine: E. Coli * 07/09/18: Urine: No growth * 07/07/18: Blood culture: no growth after 5 days X2 * 07/09/18 Blood culture: no growth after 5 days X2 * 07/14/18: blood cultures: no growth to date * 07/14/18: sputum culture: yeast species * 07/14/18: Urine culture: no growth * 07/20/18: Blood culture: no growth after 5 days X2 * 07/20/18: Urine culture: no growth * 07/21/18: No Salmonella, shigella, or campobacter * 07/23/18 Urine culture: no growth * 08/12/18: Urine Culture shows VRE * MRSA not detected * Antibiotics * Rocephin 2gm IVPB Q12H (07/14/18 through 07/20/18) * Meropenem 1 gm IV Q8H (active since 07/20/18)-->spoke with ICU Physician Dr. Lozada 08/02/18 and as repeat Chest X Ray 07/31/18 does not show any infiltrates, NO need to restart * Vancomycin 1 gram IVPB Q24H (being held since 07/20/18)-->vancomycin level 7.7-->per id to d/c vancomycin * Currently on Zyvox 600 mg PO 2x/day (08/14/18): repeat Urine Culture towards end of the week. 2) Acute Respiratory Failure Pulmonary Edema Bilateral Pleural Effusion and Consolidations Likely Secondary to Aspiration Pneumonia Anoxic Encephalopagty Assessment/Plan * Required reintubated after 2nd fail attempt; patient underwent tracheostomy 07/24/18 * off Solumedrol * Duonebs RQ4H PRN wheezing * MRSA screen: not detected * Sputum culture 07/09/18, 07/12/18, 07/14/18: yeast * Mycoplasma negative * Legionella was negative * Influenza negative * HIV negative * CT Chest 07/15/18: Moderate to large bilateral pleural effusion and associated consolidations, pathcy grround-glass infiltrates/edema noted within bilateral upper lobes * Chest xray (07/24/18): worsening infiltrates, satisfactory position of recently placed tracheostomy device. Satisfactory position of remaining support apparatus including venous access catheter and recently placed nasogastric tube * Rocephin 2gm IVPB Q12H (07/14/18 through 07/20/18) * Meropenem 1 gm IV Q8H (active since 07/20/18)-->will need renewal by ID * Vancomycin 1 gram IVPB Q24H (being held since 07/20/18) discontinued by ID * Bedside Thoracic U/S 07/17/18 did not reveal enough pleural effusion for Thoracentesis and per IR on 07/28/18 nothing to drain * Lasix 20 mg IV Q12H was discontinued 08/03/18 * held Provigil 100 mg PEG 1x/day * Patient is awake all night--->patient was in rapid afib overnight. * Procalcitonin downtrending to 0.75. 3) Anoxic Encephalopathy Ventricular Tachycardia NSTEMI Apical Thrombus LLE DVT Assessment/Plan * Code Blue 07/10: SVT==>VT required amiodarone, magnesium, one shock delivered * Code Blue 07/20: vtach s/p amiodarone, fluid, calcium gluconate, required compressions and shock * Cardiology Dr Francisco on case help appreciated * No cath needed. * Medical management * Echocardiogram (07/07/18): left ventricle systolic function is borderline, ejection fraction is 45-50%, no aortic regurgitation is present, mitral regurgitation is mild. Mild tricuspid regurgitation. mild pulmonary hypertension, mild pulmonic valvular regurgitation * Contrast Echo: Large apical hypokinesis a large 30 x 20 mm soft tissue apical sessile mass suggestive of thrombus overall fraction 40%. Obtain a HUBERT or/consider stress card myopathy if coronary disease is excluded further findings per report * Monitor electrolytes * Eliquis 5 mg PO BID * Aspirin 81 mg PO 1x/day * Propranolol 5mg PO TID restart 08/08/18 * Patient had rapid afib overnight 08/07/18 * Crestor 2.5 mg PO HS 4) Urinary Tract Infection Assessment/Plan * Infectious disease on board help appreciated * 07/07/18: Urine: E. Coli * 07/09/18: Urine: No growth * 07/14/18: Urine culture: No growth * Urine Culture 07/20/18: No growth * 08/12/18: Urine Culture shows VRE: started on Zyvox 600 mg PO 2x/day 08/14/18 5) Diabetes-->chronic Assessment/Plan * HgBA1c: 7.8 * Hypoglycemic protocol * Lantus 15 units subcutaneous at bedtime Q12 6) Acute on Chronic Renal Failure Assessment/Plan * Nephrology (Dr. Hyde) on board--> help appreciated * Patient will likely not need dialysis * Renal function continues to improve 7) Hyperthyroidism? Low TSH, and Free T4 Thyroid Storm Assessment/Plan * Note Thyroid studies taken before amiodarone was given (please advised this is not amiodarone induced her levels were abnormal prior) * Patient does not have prior thyroid history * Endocrinology (Dr. 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 She will need outpatient FNA Bx of the complex Left Lobe cyst (please see full report) * Methimazole 20mg PO TID * Propranolol 5 mg PO TID was discontinued 08/03/18; restart 08/08/18 * Monitor LFTs 8) Anemia Likely Secondary to Chronic Diseases Assessment/Plan * Iron normal, TIBC low, Iron Saturation normal, Ferritin normal * Stool occult blood negative * B12 normal * Folate Normal * Transfused 1 unit PRBC 07/22/18 and 2 units PRBC from 08/13/18 through 08/14/18 * Patient is on Eliquis restarted on 07/31/18 given apical thrombus * Also with DUB: seen by [facility] Supervisor and no current intervention at this time 9) Transminitis-->improving * Likely secondary to Sepsis and Amiodarone (which was discontinued) * Hepatitis serology negative * Slightly elevated from normal on 07/20/18 but could be secondary to [employer]/Code Blue 07/20/18 10) Vitamin D deficiency Assessment plan * 50,000 international units once a week for at least 8-12 weeks started on 07/11/18 11) Thrombocytopenia-->resolved Assessment plan * Sepsis, vs Methimazole? * Fibrinogen elevated * HIT and RUSTY both negative for HIT * Currently normalized 12) 13 mm Left Adrenal Nodule * As seen on CT Chest 07/16/18 * Will need outpatient follow up for cross sectional imaging for better characterization 13) Hypernatremia-->resolved * Free water 250 ml 3x/day via OGT * Na now normal 14) LLE DVT * Eliquis 5 mg PO BID restarted on 07/31/18 * Acute thrombosis of the left common femoral and femoral veins with severe reduction of the venous return on 07/18/18 venous doppler 15) Deconditioning * Patient needs continued PT/OT 16) Prophylactic measure * Protonix 40mg PO BID * Lactobacillus 1 cap PO BID * MVI 1x/day * Vitamin C 1,000 NG 1x/day * Trach and Peg * SCD on Right and contraindicated on Left due to DVT * Peg feedings * PICC Line 07/31/18 * Off Precedex * Off Ativan * Seroquel * Note: speak to patient in alexis to assess neurologic status-->she does follow Disposition: Patient does not have insurance: please f/u with social/case management to start insurance process for potential LTAC/rehab. She will need significant rehab to regain muscle and strength. Patient is on trach collar. [place] Nesbitt D.O. 08/14/18 18:54
[2018-08-15] MEDS: (Novolog) Insulin Aspart, Recombinant 100 u/ml 10 ml vial SC SCH ×4 (01:18→18:08)
[2018-08-15 05:16] LABS: BASO # 0.1 K/uL (0.0-0.2); BASO % 0.8 % (0.0-2.0); EOS # 0.3 K/uL (0.0-0.7); HEMOGLOBIN 9.5 g/dL (11.0-16.0); LYMPH # 1.5 K/uL (1.0-4.3); LYMPH % 17.5 % (20.0-40.0); MEAN CORPUSCULAR HEMOGLOBIN 30.5 pg (27.0-31.0); MEAN CORPUSCULAR HGB CONC 34.3 g/dL (33.0-37.0); MEAN PLATELET VOLUME 7.6 fL (7.2-11.7); MONO # 0.5 K/uL (0.0-0.8); MONO % 5.9 % (0.0-10.0); NEUT # 6.4 K/uL (1.8-7.0); NEUT % 72.8 % (50.0-75.0); RBC 3.11 Mil/uL (3.80-5.20); RED CELL DISTRIBUTION WIDTH 14.9 % (11.5-14.5); WHITE BLOOD COUNT 8.8 K/uL (4.8-10.8)
[2018-08-15 05:36] LABS: ALB/GLOB RATIO 0.9 (1.0-2.1); ALBUMIN 2.9 g/dL (3.5-5.0); ALT/SGPT 60 U/L (9-52); AST/SGOT 47 U/L (14-36); BLOOD UREA NITROGEN 53 mg/dL (7-17); GFR NON-AFRICAN AMERICAN 58
[2018-08-15 05:47] LABS: IRON 39 ug/dL (37-170)
[2018-08-15 05:56] LABS: % IRON SATURATION 14 (20-55); TOTAL IRON BINDING CAPACITY 274 ug/dL (250-450)
[2018-08-15] MEDS: Pantoprazole 40 mg Susp UD PEG SCH (09:43)
[2018-08-15] MEDS: Multiple Vitamins Tab PEG SCH (09:43)
[2018-08-15] MEDS: Lactobacillus Acidophilus 500 MU Cap PEG SCH ×2 (09:44→22:33)
[2018-08-15] MEDS: Propranolol 5 mg Tab PEG SCH ×3 (09:44→17:58)
[2018-08-15] MEDS: (Lantus) Insulin Glargine, Recombinant SC SCH ×2 (09:44→22:33)
[2018-08-15] MEDS: Vitamins A & D Oint UD Foilpak TOP SCH ×2 (09:46→18:00)
[2018-08-15] MEDS: Bacitracin Ointment 30 GM TUBE TOP SCH ×2 (09:46→17:59)
--- NOTE | 2018-08-15 14:47 | CP.PCM.PN ---
<Elijah Weinberg - Last Filed: 08/15/18 16:23> Subjective - Date & Time of Evaluation Date of Evaluation: 08/15/18 Time of Evaluation: 14:41 - Subjective Subjective: PGY-[address] Merry Nesbitt Pt was examined at bedside this morning. Patient was unarousable with sternal rub. She did withdraw to pain on exam. Per nursing, patient did have a BM today. Pt presented at bedside to work with patient again today, but again she could not be awakened - she was rolled from side to side, but was unable to actively participated in PT. ROS was not able to be obtained. Objective - Vital Signs/Intake and Output Vital Signs (last 24 hours): Temp Pulse Resp BP Pulse Ox 97.7 F 66 12 87/47 L 100 08/15/18 08:00 08/15/18 12:00 08/15/18 12:00 08/15/18 12:00 08/15/18 12:00 Intake and Output: 08/15/18 08/15/18 06:59 18:59 Intake Total 700 Balance 700 - Medications Medications: Current Medications Acetaminophen (Tylenol 650mg/20.3ml Solution Ud) 650 mg PEG Q6 PRN Last Admin: 08/14/18 02:25 Dose: 650 mg Albuterol/Ipratropium (Duoneb 3 Mg/0.5 Mg (3 Ml) Ud) 3 ml INH RQ4 PRN PRN Reason: Shortness of Breath Last Admin: 08/13/18 19:00 Dose: 3 ml Apixaban (Eliquis) 5 mg PEG BID [facility] Last Admin: 08/15/18 09:43 Dose: 5 mg Ascorbic Acid (Vitamin C 500 Mg Tab) 1,000 mg NG DAILY [facility] Last Admin: 08/15/18 09:43 Dose: 1,000 mg Aspirin (Aspirin Chewable) 81 mg GT DAILY [facility] Last Admin: 08/15/18 09:43 Dose: 81 mg Bacitracin (Bacitracin) 1 gm TOP BID [facility] Last Admin: 08/15/18 09:46 Dose: 1 appl Insulin Aspart (Novolog) 0 unit SC Q6 [facility]; Protocol Last Admin: 08/15/18 12:31 Dose: Not Given Insulin Glargine (Lantus) 15 unit SC Q12 [facility] Last Admin: 08/15/18 09:44 Dose: 15 u Lactobacillus Acidophilus (Bacid Acidophilus) 1 cap PEG Q12 [facility] Last Admin: 08/15/18 09:44 Dose: 1 cap Linezolid (Zyvox) 600 mg PO BID [facility]; Protocol Last Admin: 08/15/18 09:45 Dose: 600 mg Methimazole (Tapazole) 20 mg PO Q8 [facility] Last Admin: 08/15/18 14:06 Dose: 20 mg Modafinil (Provigil) 100 mg PEG DAILY [facility] Last Admin: 08/07/18 09:17 Dose: Not Given Multivitamins (Hexavitamin) 1 tab PEG DAILY [facility] Last Admin: 08/15/18 09:43 Dose: 1 tab Pantoprazole Sodium (Protonix Susp) 40 mg PEG DAILY [facility] Last Admin: 08/15/18 09:43 Dose: 40 mg Propranolol HCl (Inderal) 5 mg PEG TID [facility] Last Admin: 08/15/18 13:52 Dose: 5 mg Quetiapine Fumarate (Seroquel) 25 mg JT Q12 [facility] Last Admin: 08/15/18 09:45 Dose: 25 mg Vitamin A (Vitamin A & D Oint Ud Foilpak) 1 ea TOP BID [facility] Last Admin: 08/15/18 09:46 Dose: 1 ea - Labs Labs: 08/15/18 05:03 08/15/18 05:03 PT 17.7 SECONDS (9.7-12.2) H 07/28/18 06:19 INR 1.6 07/28/18 06:19 APTT 52 SECONDS (21-34) H 07/31/18 05:56 - Constitutional Appears: Chronically Ill - Head Exam Head Exam: NORMOCEPHALIC - Eye Exam Eye Exam: PERRL Additional comments: Unable to fully assess due to patient unable to be awakened - Neck Exam Additional comments: trach collar in place, minimal fluid surrounding - Respiratory Exam Respiratory Exam: Clear to Ausculation Bilateral, NORMAL BREATHING PATTERN. absent: Rales, Rhonchi, Wheezes Additional comments: On vent - Cardiovascular Exam Cardiovascular Exam: REGULAR RHYTHM, +S1, +S2. absent: Murmur - GI/Abdominal Exam GI & Abdominal Exam: Soft. absent: Tenderness - Extremities Exam Extremities Exam: absent: Pedal Edema - Neurological Exam Neurological Exam: absent: Alert, Awake - Psychiatric Exam Additional comments: Unable to assess - Skin Skin Exam: Dry, Intact, Warm Assessment and Plan - Assessment and Plan (Free Text) Assessment: Septic Shock Pneumonia Urinary Tract Infection * Infectious Disease (Dr. Brock) on case-->help appreciated * MRSA not detected * Antibiotics * off antibiotics * Treated for pneumonia and uti during hospitalization * Patient had low grade fever at 100.8F * Recultured: UCx - Vancomycin Resistant E. faecium - Sensitive to Linezolid. See plan below. * BCx negative x1 * CXR 08/12: atelectasis/infiltrate in L lung base, atelectasis in R mid lung 2) Acute Respiratory Failure Pulmonary Edema Bilateral Pleural Effusion and Consolidations Likely Secondary to Aspiration Pneumonia Anoxic Encephalopagty Assessment/Plan * On trach collar trial --> Mechanical ventilation on exam today * Patient had two code blues (07/10; 07/20) during hospitalizations * CXR 08/12: atelectasis/infiltrate in L lung base, atelectasis in R mid lung 3) Anoxic Encephalopathy Ventricular Tachycardia NSTEMI Apical Thrombus LLE DVT Assessment/Plan * Code Blue 07/10: SVT==>VT required amiodarone, magnesium, one shock delivered * Code Blue 07/20: vtach s/p amiodarone, fluid, calcium gluconate, required compressions and shock * Cardiology Dr Francisco on case help appreciated * No cath needed. * Medical management * Echocardiogram (07/07/18): left ventricle systolic function is borderline, ejection fraction is 45-50%, no aortic regurgitation is present, mitral regurgitation is mild. Mild tricuspid regurgitation. mild pulmonary hypertension, mild pulmonic valvular regurgitation * Contrast Echo: Large apical hypokinesis a large 30 x 20 mm soft tissue apical sessile mass suggestive of thrombus overall fraction 40%. Obtain a HUBERT or/consider stress card myopathy if coronary disease is excluded further findings per report * Monitor electrolytes Via Peg * Eliquis 5 mg PO BID * Aspirin 81 mg PO 1x/day * Propranolol 5mg PO TID restart 08/08/18 * Crestor 2.5 mg PO HS 4) Urinary Tract Infection Assessment/Plan * Infectious disease on board help appreciated * UTI treated during hospitalization * Patient had fever 100.8F * UCx Gram VRE upon re-culture * Linezolid 600 IV BID, for 3-4 days. * Straight cath urine Cx PM, discontinue Linezolid given negative repeat urine cultures 5) Diabetes-->chronic Assessment/Plan * HgBA1c: 7.8 * Hypoglycemic protocol * Lantus 15 units subcutaneous at bedtime Q12 6) Acute on Chronic Renal Failure Assessment/Plan * Nephrology (Dr. Hyde) on board--> help appreciated * Patient will likely not need dialysis * Renal function continues to improve 7) Hyperthyroidism? Low TSH, and Free T4 Thyroid Storm Assessment/Plan * Note Thyroid studies taken before amiodarone was given (please advised this is not amiodarone induced her levels were abnormal prior) * Patient does not have prior thyroid history * Endocrinology (Dr. 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 She will need outpatient FNA Bx of the complex Left Lobe cyst (please see full report) * Methimazole 20mg PO TID * Propranolol 5 mg PO TID was discontinued 08/03/18; restart 08/08/18 * Monitor LFTs 8) Anemia Likely Secondary to Chronic Diseases Assessment/Plan * Iron normal, TIBC low, Iron Saturation normal, Ferritin normal * Stool occult blood negative * B12 normal * Folate Normal * Transfused 1 unit PRBC 07/22/18 * Patient is on Eliquis restarted on 07/31/18 given apical thrombus 9) Transminitis-->improving * Likely secondary to Sepsis and Amiodarone (which was discontinued) * Hepatitis serology negative 10) Vitamin D deficiency Assessment plan * 50,000 international units once a week for at least 8-12 weeks started on 07/11/18 11) Thrombocytopenia-->resolved Assessment plan * Sepsis, vs Methimazole? * Fibrinogen elevated * HIT and RUSTY both negative for HIT * Currently normalized 12) 13 mm Left Adrenal Nodule * As seen on CT Chest 07/16/18 * Will need outpatient follow up for cross sectional imaging for better elzbieta acterization 13) Hypernatremia-->resolved * Free water 250 ml 3x/day via OGT * Na now normal 14) LLE DVT * Eliquis 5 mg PO BID restarted on 07/31/18 * Acute thrombosis of the left common femoral and femoral veins with severe reduction of the venous return on 07/18/18 venous doppler 15) Deconditioning * Patient needs continued PT/OT * PT worked with patient on 07/12, unable to wake patient today, will attempt again tomorrow. 16) Prophylactic measure * Protonix 40mg PO BID * Lactobacillus 1 cap PO BID * MVI 1x/day * Vitamin C 1,000 NG 1x/day * Trach and Peg * Follow peg intake * SCD on Right and contraindicated on Left due to DVT * Peg feedings * PICC Line 07/31/18 * Seroquel 12.5mg PO Q12H * Note: speak to patient in alexis to assess neurologic status-->she does follow Disposition: Patient does not have insurance: please f/u with social/case management to start insurance process for potential LTAC/rehab. She will need significant rehab to regain muscle and strength. Patient remains ventilated. <North Nesbitt - Last Filed: 08/16/18 19:51> Objective - Vital Signs/Intake and Output Vital Signs (last 24 hours): Temp Pulse Resp BP Pulse Ox 97.9 F 86 27 H 97/56 L 100 08/16/18 16:00 08/16/18 16:00 08/16/18 16:00 08/16/18 16:00 08/16/18 12:00 - Medications Medications: Current Medications Acetaminophen (Tylenol 650mg/20.3ml Solution Ud) 650 mg PEG Q6 PRN Last Admin: 08/16/18 01:01 Dose: 650 mg Albuterol/Ipratropium (Duoneb 3 Mg/0.5 Mg (3 Ml) Ud) 3 ml INH RQ4 PRN PRN Reason: Shortness of Breath Last Admin: 08/13/18 19:00 Dose: 3 ml Apixaban (Eliquis) 5 mg PEG BID [facility] Last Admin: 08/16/18 17:55 Dose: 5 mg Ascorbic Acid (Vitamin C 500 Mg Tab) 1,000 mg NG DAILY [facility] Last Admin: 08/16/18 09:24 Dose: 1,000 mg Aspirin (Aspirin Chewable) 81 mg GT DAILY [facility] Last Admin: 08/16/18 09:24 Dose: 81 mg Bacitracin (Bacitracin) 1 gm TOP BID [facility] Last Admin: 08/16/18 17:57 Dose: 1 appl Insulin Aspart (Novolog) 0 unit SC Q6 [facility]; Protocol Last Admin: 08/16/18 18:14 Dose: 4 units Insulin Glargine (Lantus) 15 unit SC Q12 [facility] Last Admin: 08/16/18 09:32 Dose: 15 u Lactobacillus Acidophilus (Bacid Acidophilus) 1 cap PEG Q12 [facility] Last Admin: 08/16/18 09:26 Dose: 1 cap Linezolid (Zyvox) 600 mg PO BID [facility]; Protocol Last Admin: 08/16/18 17:55 Dose: 600 mg Methimazole (Tapazole) 20 mg PO Q8 [facility] Last Admin: 08/16/18 14:25 Dose: 20 mg Multivitamins (Hexavitamin) 1 tab PEG DAILY [facility] Last Admin: 08/16/18 09:24 Dose: 1 tab Pantoprazole Sodium (Protonix Susp) 40 mg PEG DAILY [facility] Last Admin: 08/16/18 09:24 Dose: 40 mg Propranolol HCl (Inderal) 5 mg PEG TID [facility] Last Admin: 08/16/18 17:55 Dose: 5 mg Quetiapine Fumarate (Seroquel) 25 mg JT Q12 [facility] Last Admin: 08/16/18 09:26 Dose: 25 mg Vitamin A (Vitamin A & D Oint Ud Foilpak) 1 ea TOP BID [facility] Last Admin: 08/16/18 17:56 Dose: 1 ea - Labs Labs: 08/16/18 05:07 08/16/18 05:07 PT 17.7 SECONDS (9.7-12.2) H 07/28/18 06:19 INR 1.6 07/28/18 06:19 APTT 52 SECONDS (21-34) H 07/31/18 05:56 Attending/Attestation - Attestation I have personally seen and examined this patient.: Yes I have fully participated in the care of the patient.: Yes I have reviewed all pertinent clinical information, including history, physical exam and plan: Yes Notes (Text): 08/16/18 19:51 This is a late entry. Care of this patient was gone over with resident Dr. Weinberg. North Nesbitt D.O.
[2018-08-16] MEDS: (Novolog) Insulin Aspart, Recombinant 100 u/ml 10 ml vial SC SCH ×4 (01:00→18:14)
[2018-08-16] MEDS: Acetaminophen 650mg/20.3ml solution UD PEG PRN (01:01)
[2018-08-16] MEDS ORDERED: Metoprolol 1 mg/ml Inj ONE (04:40)
[2018-08-16 05:11] LABS: BASO # 0.1 K/uL (0.0-0.2); BASO % 0.8 % (0.0-2.0); EOS # 0.5 K/uL (0.0-0.7); EOS % 3.4 % (0.0-4.0); HEMOGLOBIN 9.4 g/dL (11.0-16.0); LYMPH # 1.9 K/uL (1.0-4.3); LYMPH % 13.8 % (20.0-40.0); MEAN CELL VOLUME 89.6 fL (81.0-99.0); MEAN CORPUSCULAR HEMOGLOBIN 29.2 pg (27.0-31.0); MEAN CORPUSCULAR HGB CONC 32.6 g/dL (33.0-37.0); MEAN PLATELET VOLUME 7.9 fL (7.2-11.7); MONO # 0.7 K/uL (0.0-0.8); MONO % 5.2 % (0.0-10.0); NEUT # 10.4 K/uL (1.8-7.0); NEUT % 76.8 % (50.0-75.0); RBC 3.23 Mil/uL (3.80-5.20); RED CELL DISTRIBUTION WIDTH 15.3 % (11.5-14.5); WHITE BLOOD COUNT 13.5 K/uL (4.8-10.8)
[2018-08-16 06:37] LABS: ALB/GLOB RATIO 0.8 (1.0-2.1); ALBUMIN 2.9 g/dL (3.5-5.0); ALT/SGPT 81 U/L (9-52); AST/SGOT 63 U/L (14-36); BLOOD UREA NITROGEN 55 mg/dL (7-17); CALCIUM 9.1 mg/dl (8.6-10.4); GFR NON-AFRICAN AMERICAN 58
[2018-08-16] MEDS ORDERED: hydrOXYzine HCl 25 mg/ml Inj IM STA (08:30)
[2018-08-16] MEDS: Multiple Vitamins Tab PEG SCH (09:24)
[2018-08-16] MEDS: Pantoprazole 40 mg Susp UD PEG SCH (09:24)
[2018-08-16] MEDS: Vitamins A & D Oint UD Foilpak TOP SCH ×2 (09:24→17:56)
[2018-08-16] MEDS: Propranolol 5 mg Tab PEG SCH ×3 (09:26→17:55)
[2018-08-16] MEDS: Lactobacillus Acidophilus 500 MU Cap PEG SCH ×2 (09:26→22:11)
[2018-08-16] MEDS: Bacitracin Ointment 30 GM TUBE TOP SCH ×2 (09:27→17:57)
[2018-08-16] MEDS: (Lantus) Insulin Glargine, Recombinant SC SCH ×2 (09:32→22:20)
--- NOTE | 2018-08-16 10:51 | CP.PCM.PN ---
<Elijah Weinberg - Last Filed: 08/16/18 16:33> Subjective - Date & Time of Evaluation Date of Evaluation: 08/16/18 Time of Evaluation: 10:55 - Subjective Subjective: PGY-[address] Merry Nesbitt Patient seen and examined at bedside. Again, patient was asleep on exam. She could not be awakened with sternal rub or calling her name. Per overnight resident, patient was agitated overnight and was given 1mg Ativan. Patient was then given 50 mg Atarax this morning for continued agitation. By the time I examined the patient, she was sedated. She remains on the vent. ROS unable to be obtained. Objective - Vital Signs/Intake and Output Vital Signs (last 24 hours): Temp Pulse Resp BP Pulse Ox 97.9 F 115 H 36 H 121/54 L 96 08/16/18 08:00 08/16/18 08:00 08/16/18 08:00 08/16/18 08:00 08/16/18 08:00 Intake and Output: 08/16/18 08/16/18 06:59 18:59 Intake Total 800 Balance 800 - Medications Medications: Current Medications Acetaminophen (Tylenol 650mg/20.3ml Solution Ud) 650 mg PEG Q6 PRN Last Admin: 08/16/18 01:01 Dose: 650 mg Albuterol/Ipratropium (Duoneb 3 Mg/0.5 Mg (3 Ml) Ud) 3 ml INH RQ4 PRN PRN Reason: Shortness of Breath Last Admin: 08/13/18 19:00 Dose: 3 ml Apixaban (Eliquis) 5 mg PEG BID [facility] Last Admin: 08/16/18 09:44 Dose: 5 mg Ascorbic Acid (Vitamin C 500 Mg Tab) 1,000 mg NG DAILY [facility] Last Admin: 08/16/18 09:24 Dose: 1,000 mg Aspirin (Aspirin Chewable) 81 mg GT DAILY [facility] Last Admin: 08/16/18 09:24 Dose: 81 mg Bacitracin (Bacitracin) 1 gm TOP BID [facility] Last Admin: 08/16/18 09:27 Dose: 1 appl Insulin Aspart (Novolog) 0 unit SC Q6 [facility]; Protocol Last Admin: 08/16/18 07:10 Dose: Not Given Insulin Glargine (Lantus) 15 unit SC Q12 [facility] Last Admin: 08/16/18 09:32 Dose: 15 u Lactobacillus Acidophilus (Bacid Acidophilus) 1 cap PEG Q12 [facility] Last Admin: 08/16/18 09:26 Dose: 1 cap Linezolid (Zyvox) 600 mg PO BID [facility]; Protocol Last Admin: 08/16/18 09:25 Dose: 600 mg Methimazole (Tapazole) 20 mg PO Q8 [facility] Last Admin: 08/16/18 06:07 Dose: 20 mg Multivitamins (Hexavitamin) 1 tab PEG DAILY [facility] Last Admin: 08/16/18 09:24 Dose: 1 tab Pantoprazole Sodium (Protonix Susp) 40 mg PEG DAILY [facility] Last Admin: 08/16/18 09:24 Dose: 40 mg Propranolol HCl (Inderal) 5 mg PEG TID [facility] Last Admin: 08/16/18 09:26 Dose: 5 mg Quetiapine Fumarate (Seroquel) 25 mg JT Q12 [facility] Last Admin: 08/16/18 09:26 Dose: 25 mg Vitamin A (Vitamin A & D Oint Ud Foilpak) 1 ea TOP BID [facility] Last Admin: 08/16/18 09:24 Dose: 1 ea - Labs Labs: 08/16/18 05:07 08/16/18 05:07 PT 17.7 SECONDS (9.7-12.2) H 07/28/18 06:19 INR 1.6 07/28/18 06:19 APTT 52 SECONDS (21-34) H 07/31/18 05:56 - Constitutional Appears: Chronically Ill - Head Exam Head Exam: ATRAUMATIC, NORMOCEPHALIC - Eye Exam Eye Exam: EOMI, PERRL - Respiratory Exam Respiratory Exam: Clear to Ausculation Bilateral. absent: Rhonchi, Wheezes Additional comments: On vent - Cardiovascular Exam Cardiovascular Exam: REGULAR RHYTHM, +S1, +S2. absent: Murmur - GI/Abdominal Exam GI & Abdominal Exam: Soft, Normal Bowel Sounds. absent: Tenderness - Neurological Exam Neurological Exam: absent: Alert, Awake Additional comments: Sedated and asleep. Unable to wake patient with sternal rub or verbally calling her name. - Psychiatric Exam Additional comments: Unable to assess - Skin Skin Exam: Dry, Intact Assessment and Plan - Assessment and Plan (Free Text) Assessment: Septic Shock Pneumonia Urinary Tract Infection * Infectious Disease (Dr. Brock) on case-->help appreciated * MRSA not detected * Antibiotics * off antibiotics * Treated for pneumonia and uti during hospitalization * Patient had low grade fever at 100.8F * Recultured: UCx Gram +cocci * BCx negative x1 * CXR 08/12: atelectasis/infiltrate in L lung base, atelectasis in R mid lung 2) Acute Respiratory Failure Pulmonary Edema Bilateral Pleural Effusion and Consolidations Likely Secondary to Aspiration Pneumonia Anoxic Encephalopagty Assessment/Plan * On trach collar trial * Patient had two code blues (07/10; 07/20) during hospitalizations * CXR 08/12: atelectasis/infiltrate in L lung base, atelectasis in R mid lung 3) Anoxic Encephalopathy Ventricular Tachycardia NSTEMI Apical Thrombus LLE DVT Assessment/Plan * Code Blue 07/10: SVT==>VT required amiodarone, magnesium, one shock delivered * Code Blue 07/20: vtach s/p amiodarone, fluid, calcium gluconate, required compressions and shock * Cardiology Dr Francisco on case help appreciated * No cath needed. * Medical management * Echocardiogram (07/07/18): left ventricle systolic function is borderline, ejection fraction is 45-50%, no aortic regurgitation is present, mitral regur gitation is mild. Mild tricuspid regurgitation. mild pulmonary hypertension, mild pulmonic valvular regurgitation * Contrast Echo: Large apical hypokinesis a large 30 x 20 mm soft tissue apical sessile mass suggestive of thrombus overall fraction 40%. Obtain a HUBERT or/consider stress card myopathy if coronary disease is excluded further findings per report * Monitor electrolytes Via Peg * Eliquis 5 mg PO BID * Aspirin 81 mg PO 1x/day * Propranolol 5mg PO TID restart 08/08/18 * Crestor 2.5 mg PO HS 4) Urinary Tract Infection Assessment/Plan * Infectious disease on board help appreciated * UTI treated during hospitalization * Patient had fever 100.8F * UCx Gram +cocci upon reculture 5) Diabetes-->chronic Assessment/Plan * HgBA1c: 7.8 * Hypoglycemic protocol * Lantus 15 units subcutaneous at bedtime Q12 6) Acute on Chronic Renal Failure Assessment/Plan * Nephrology (Dr. Hyde) on board--> help appreciated * Patient will likely not need dialysis * Renal function continues to improve 7) Hyperthyroidism? Low TSH, and Free T4 Thyroid Storm Assessment/Plan * Note Thyroid studies taken before amiodarone was given (please advised this is not amiodarone induced her levels were abnormal prior) * Patient does not have prior thyroid history * Endocrinology (Dr. 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 She will need outpatient FNA Bx of the complex Left Lobe cyst (please see full report) * Methimazole 20mg PO TID * Propranolol 5 mg PO TID was discontinued 08/03/18; restart 08/08/18 * Monitor LFTs 8) Anemia Likely Secondary to Chronic Diseases Assessment/Plan * Iron normal, TIBC low, Iron Saturation normal, Ferritin normal * Stool occult blood negative * B12 normal * Folate Normal * Transfused 1 unit PRBC 07/22/18 * Patient is on Eliquis restarted on 07/31/18 given apical thrombus 9) Transminitis-->improving * Likely secondary to Sepsis and Amiodarone (which was discontinued) * Hepatitis serology negative 10) Vitamin D deficiency Assessment plan * 50,000 international units once a week for at least 8-12 weeks started on 07/11/18 11) Thrombocytopenia-->resolved Assessment plan * Sepsis, vs Methimazole? * Fibrinogen elevated * HIT and RUSTY both negative for HIT * Currently normalized 12) 13 mm Left Adrenal Nodule * As seen on CT Chest 07/16/18 * Will need outpatient follow up for cross sectional imaging for better characterization 13) Hypernatremia-->resolved * Free water 250 ml 3x/day via OGT * Na now normal 14) LLE DVT * Eliquis 5 mg PO BID restarted on 07/31/18 * Acute thrombosis of the left common femoral and femoral veins with severe reduction of the venous return on 07/18/18 venous doppler 15) Deconditioning * Patient needs continued PT/OT * PT worked with patient on 07/12, unable to wake patient today, will attempt again tomorrow. 16) Prophylactic measure * Protonix 40mg PO BID * Lactobacillus 1 cap PO BID * MVI 1x/day * Vitamin C 1,000 NG 1x/day * Trach and Peg * Follow peg intake * SCD on Right and contraindicated on Left due to DVT * Peg feedings * PICC Line 07/31/18 * Seroquel 12.5mg PO Q12H * Note: speak to patient in alexis to assess neurologic status-->she does follow * -Ativan 1 mg given overnight last night for agitation * -Atarax 50 mg given this morning for agitation Disposition: Patient does not have insurance: please f/u with social/case management to start insurance process for potential LTAC/rehab. She will need significant rehab to regain muscle and strength. Patient has trach, has been on vent. <[place] Nesbitt - Last Filed: 08/16/18 19:50> Objective - Vital Signs/Intake and Output Vital Signs (last 24 hours): Temp Pulse Resp BP Pulse Ox 97.9 F 86 27 H 97/56 L 100 08/16/18 16:00 08/16/18 16:00 08/16/18 16:00 08/16/18 16:00 08/16/18 12:00 - Medications Medications: Current Medications Acetaminophen (Tylenol 650mg/20.3ml Solution Ud) 650 mg PEG Q6 PRN Last Admin: 08/16/18 01:01 Dose: 650 mg Albuterol/Ipratropium (Duoneb 3 Mg/0.5 Mg (3 Ml) Ud) 3 ml INH RQ4 PRN PRN Reason: Shortness of Breath Last Admin: 08/13/18 19:00 Dose: 3 ml Apixaban (Eliquis) 5 mg PEG BID [facility] Last Admin: 08/16/18 17:55 Dose: 5 mg Ascorbic Acid (Vitamin C 500 Mg Tab) 1,000 mg NG DAILY [facility] Last Admin: 08/16/18 09:24 Dose: 1,000 mg Aspirin (Aspirin Chewable) 81 mg GT DAILY [facility] Last Admin: 08/16/18 09:24 Dose: 81 mg Bacitracin (Bacitracin) 1 gm TOP BID [facility] Last Admin: 08/16/18 17:57 Dose: 1 appl Insulin Aspart (Novolog) 0 unit SC Q6 [facility]; Protocol Last Admin: 08/16/18 18:14 Dose: 4 units Insulin Glargine (Lantus) 15 unit SC Q12 [facility] Last Admin: 08/16/18 09:32 Dose: 15 u Lactobacillus Acidophilus (Bacid Acidophilus) 1 cap PEG Q12 [facility] Last Admin: 08/16/18 09:26 Dose: 1 cap Linezolid (Zyvox) 600 mg PO BID [facility]; Protocol Last Admin: 08/16/18 17:55 Dose: 600 mg Methimazole (Tapazole) 20 mg PO Q8 [facility] Last Admin: 08/16/18 14:25 Dose: 20 mg Multivitamins (Hexavitamin) 1 tab PEG DAILY [facility] Last Admin: 08/16/18 09:24 Dose: 1 tab Pantoprazole Sodium (Protonix Susp) 40 mg PEG DAILY [facility] Last Admin: 08/16/18 09:24 Dose: 40 mg Propranolol HCl (Inderal) 5 mg PEG TID [facility] Last Admin: 08/16/18 17:55 Dose: 5 mg Quetiapine Fumarate (Seroquel) 25 mg JT Q12 [facility] Last Admin: 08/16/18 09:26 Dose: 25 mg Vitamin A (Vitamin A & D Oint Ud Foilpak) 1 ea TOP BID [facility] Last Admin: 08/16/18 17:56 Dose: 1 ea - Labs Labs: 08/16/18 05:07 08/16/18 05:07 PT 17.7 SECONDS (9.7-12.2) H 07/28/18 06:19 INR 1.6 07/28/18 06:19 APTT 52 SECONDS (21-34) H 07/31/18 05:56 Attending/Attestation - Attestation I have personally seen and examined this patient.: Yes I have fully participated in the care of the patient.: Yes I have reviewed all pertinent clinical information, including history, physical exam and plan: Yes Notes (Text): 08/16/18 19:47 Patient was seen and examined at 6:15 PM 08/16/18 Urine Culture 08/12/18 VRE+ and patient was placed Zyvox 600 mg PO 2x/day 08/12/18 Repeat Urine Culture 08/14/18 shows NO growth F/U Urine Culture 08/17/18 Blood Culture 08/12/18 is negative to date LFTs are rising and this may be due the Zyvox: monitor General: Trach on CPAP trial HEENT: NCA, Pupils are round and reactive to light, NO cervical/supraclavicular/submandibular lymphadenopathy Cardio: NS1 and NS2, NO M/R/G Respiratory: Diffuse course breath sounds bilaterallly GI: BSx4, Soft, ND, NO HSM, NO guarding, NO rebound tenderness, PEG Tube insertion site without evidence of surrounding cellulitis Ext: Pulses are strong and equal, Capillary Refill is 2 seconds, NO edema noted Neuro: exam not possible at this time Skin: Blanchable erythema noted on the lower buttocks area. NO other ulceration noted on any of the ophelia prominences 1) Septic Shock Pneumonia Urinary Tract Infection Assessment/Plan * Infectious Disease (Dr. Brock) on case-->help appreciated * Tmax: 101.7 F (07/19/18) * Afebrile since * Criteria: leukocytosis, tachycardia * Source: aspiration pneumonia and urinary tract infection * 07/07/18: Urine: E. Coli * 07/09/18: Urine: No growth * 07/07/18: Blood culture: no growth after 5 days X2 * 07/09/18 Blood culture: no growth after 5 days X2 * 07/14/18: blood cultures: no growth to date * 07/14/18: sputum culture: yeast species * 07/14/18: Urine culture: no growth * 07/20/18: Blood culture: no growth after 5 days X2 * 07/20/18: Urine culture: no growth * 07/21/18: No Salmonella, shigella, or campobacter * 07/23/18 Urine culture: no growth * 08/12/18: Urine Culture shows VRE * MRSA not detected * Antibiotics * Rocephin 2gm IVPB Q12H (07/14/18 through 07/20/18) * Meropenem 1 gm IV Q8H (active since 07/20/18)-->spoke with ICU Physician Dr. Lozada 08/02/18 and as repeat Chest X Ray 07/31/18 does not show any infiltrates, NO need to restart * Vancomycin 1 gram IVPB Q24H (being held since 07/20/18)-->vancomycin level 7.7-->per id to d/c vancomycin * Currently on Zyvox 600 mg PO 2x/day (08/14/18): F/U repeat Urine Culture 08/17/18. 2) Acute Respiratory Failure Pulmonary Edema Bilateral Pleural Effusion and Consolidations Likely Secondary to Aspiration Pneumonia Anoxic Encephalopagty Assessment/Plan * Required reintubated after 2nd fail attempt; patient underwent tracheostomy 07/24/18 * off Solumedrol * Duonebs RQ4H PRN wheezing * MRSA screen: not detected * Sputum culture 07/09/18, 07/12/18, 07/14/18: yeast * Mycoplasma negative * Legionella was negative * Influenza negative * HIV negative * CT Chest 07/15/18: Moderate to large bilateral pleural effusion and associated consolidations, pathcy grround-glass infiltrates/edema noted within bilateral upper lobes * Chest xray (07/24/18): worsening infiltrates, satisfactory position of recently placed tracheostomy device. Satisfactory position of remaining support apparatus including venous access catheter and recently placed nasogastric tube * Rocephin 2gm IVPB Q12H (07/14/18 through 07/20/18) * Meropenem 1 gm IV Q8H (active since 07/20/18)-->will need renewal by ID * Vancomycin 1 gram IVPB Q24H (being held since 07/20/18) discontinued by ID * Bedside Thoracic U/S 07/17/18 did not reveal enough pleural effusion for Thoracentesis and per IR on 07/28/18 nothing to drain * Lasix 20 mg IV Q12H was discontinued 08/03/18 * held Provigil 100 mg PEG 1x/day * Patient is awake all night--->patient was in rapid afib overnight. * Procalcitonin downtrending to 0.75. 3) Anoxic Encephalopathy Ventricular Tachycardia NSTEMI Apical Thrombus LLE DVT Assessment/Plan * Code Blue 07/10: SVT==>VT required amiodarone, magnesium, one shock delivered * Code Blue 07/20: vtach s/p amiodarone, fluid, calcium gluconate, required compressions and shock * Cardiology Dr Francisco on case help appreciated * No cath needed. * Medical management * Echocardiogram (07/07/18): left ventricle systolic function is borderline, ejection fraction is 45-50%, no aortic regurgitation is present, mitral regurgitation is mild. Mild tricuspid regurgitation. mild pulmonary hypertension, mild pulmonic valvular regurgitation * Contrast Echo: Large apical hypokinesis a large 30 x 20 mm soft tissue apical sessile mass suggestive of thrombus overall fraction 40%. Obtain a HUBERT or/consider stress card myopathy if coronary disease is excluded further findings per report * Monitor electrolytes * Eliquis 5 mg PO BID * Aspirin 81 mg PO 1x/day * Propranolol 5mg PO TID restart 08/08/18 * Patient had rapid afib overnight 08/07/18 * Crestor 2.5 mg PO HS 4) Urinary Tract Infection Assessment/Plan * Infectious disease on board help appreciated * 07/07/18: Urine: E. Coli * 07/09/18: Urine: No growth * 07/14/18: Urine culture: No growth * Urine Culture 07/20/18: No growth * 08/12/18: Urine Culture shows VRE: started on Zyvox 600 mg PO 2x/day 08/14/18 * F/U Urine Culture 08/17/18 5) Diabetes-->chronic Assessment/Plan * HgBA1c: 7.8 * Hypoglycemic protocol * Lantus 15 units subcutaneous at bedtime Q12 6) Acute on Chronic Renal Failure Assessment/Plan * Nephrology (Dr. Hyde) on board--> help appreciated * Patient will likely not need dialysis * Renal function continues to improve 7) Hyperthyroidism? Low TSH, and Free T4 Thyroid Storm Assessment/Plan * Note Thyroid studies taken before amiodarone was given (please advised this is not amiodarone induced her levels were abnormal prior) * Patient does not have prior thyroid history * Endocrinology (Dr. 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 She will need outpatient FNA Bx of the complex Left Lobe cyst (please see full report) * Methimazole 20mg PO TID * Propranolol 5 mg PO TID was discontinued 08/03/18; restart 08/08/18 * Monitor LFTs 8) Anemia Likely Secondary to Chronic Diseases Assessment/Plan * Iron normal, TIBC low, Iron Saturation normal, Ferritin normal * Stool occult blood negative * B12 normal * Folate Normal * Transfused 1 unit PRBC 07/22/18 and 2 units PRBC from 08/13/18 through 08/14/18 * Patient is on Eliquis restarted on 07/31/18 given apical thrombus * Also with DUB: seen by [employer] and no current intervention at this time 9) Transminitis-->improving * Likely secondary to Sepsis and Amiodarone (which was discontinued) * Hepatitis serology negative * Slightly elevated from normal on 07/20/18 but could be secondary to DEVELOPMENT ASSISTANT/Code Blue 07/20/18 10) Vitamin D deficiency Assessment plan * 50,000 international units once a week for at least 8-12 weeks started on 07/11/18 11) Thrombocytopenia-->resolved Assessment plan * Sepsis, vs Methimazole? * Fibrinogen elevated * HIT and RUSTY both negative for HIT * Currently normalized 12) 13 mm Left Adrenal Nodule * As seen on CT Chest 07/16/18 * Will need outpatient follow up for cross sectional imaging for better characterization 13) Hypernatremia-->resolved * Free water 250 ml 3x/day via OGT * Na now normal 14) LLE DVT * Eliquis 5 mg PO BID restarted on 07/31/18 * Acute thrombosis of the left common femoral and femoral veins with severe reduction of the venous return on 07/18/18 venous doppler 15) Deconditioning * Patient needs continued PT/OT 16) Prophylactic measure * Protonix 40mg PO BID * Lactobacillus 1 cap PO BID * MVI 1x/day * Vitamin C 1,000 NG 1x/day * Trach and Peg * SCD on Right and contraindicated on Left due to DVT * Peg feedings * PICC Line 07/31/18 * Off Precedex * Off Ativan * Seroquel * Note: speak to patient in alexis to assess neurologic status-->she does follow Disposition: Patient does not have insurance: please f/u with social/case management to start insurance process for potential LTAC/rehab. She will need significant rehab to regain muscle and strength. Patient is on trach collar. [place] Nesbitt D.O. 08/16/18 19:48
--- NOTE | 2018-08-16 16:16 | RAD ---
HISTORY: pneumonia COMPARISON: Chest x-ray performed 08/12/18 TECHNIQUE: Chest, one view. FINDINGS: Tracheostomy tube. Left-sided PICC extends to the expected location of proximal right atrium. LUNGS: No focal consolidation. Please note that chest x-ray has limited sensitivity for the detection of pulmonary masses. PLEURA: No significant pleural effusion identified. No definite pneumothorax . CARDIOVASCULAR: Cardiomegaly. Atherosclerotic calcification present. OSSEOUS STRUCTURES: No acute osseous abnormality identified. VISUALIZED UPPER ABDOMEN: Mild elevation of the right hemidiaphragm. OTHER FINDINGS: None. IMPRESSION: Tracheostomy tube. Left-sided PICC extends to the expected location of proximal right atrium.
--- NOTE | 2018-08-16 18:13 | CP.PCM.PN ---
Subjective - Date & Time of Evaluation Date of Evaluation: 08/16/18 Time of Evaluation: 09:00 - Subjective Subjective: events noted recently spiked fevers c/s noted on zyvox Objective - Vital Signs/Intake and Output Vital Signs (last 24 hours): Temp Pulse Resp BP Pulse Ox 97.9 F 86 27 H 97/56 L 100 08/16/18 16:00 08/16/18 16:00 08/16/18 16:00 08/16/18 16:00 08/16/18 12:00 Intake and Output: 08/16/18 08/16/18 06:59 18:59 Intake Total 800 Balance 800 - Medications Medications: Current Medications Acetaminophen (Tylenol 650mg/20.3ml Solution Ud) 650 mg PEG Q6 PRN Last Admin: 08/16/18 01:01 Dose: 650 mg Albuterol/Ipratropium (Duoneb 3 Mg/0.5 Mg (3 Ml) Ud) 3 ml INH RQ4 PRN PRN Reason: Shortness of Breath Last Admin: 08/13/18 19:00 Dose: 3 ml Apixaban (Eliquis) 5 mg PEG BID [facility] Last Admin: 08/16/18 17:55 Dose: 5 mg Ascorbic Acid (Vitamin C 500 Mg Tab) 1,000 mg NG DAILY [facility] Last Admin: 08/16/18 09:24 Dose: 1,000 mg Aspirin (Aspirin Chewable) 81 mg GT DAILY [facility] Last Admin: 08/16/18 09:24 Dose: 81 mg Bacitracin (Bacitracin) 1 gm TOP BID [facility] Last Admin: 08/16/18 17:57 Dose: 1 appl Insulin Aspart (Novolog) 0 unit SC Q6 [facility]; Protocol Last Admin: 08/16/18 12:13 Dose: Not Given Insulin Glargine (Lantus) 15 unit SC Q12 [facility] Last Admin: 08/16/18 09:32 Dose: 15 u Lactobacillus Acidophilus (Bacid Acidophilus) 1 cap PEG Q12 [facility] Last Admin: 08/16/18 09:26 Dose: 1 cap Linezolid (Zyvox) 600 mg PO BID [facility]; Protocol Last Admin: 08/16/18 17:55 Dose: 600 mg Methimazole (Tapazole) 20 mg PO Q8 [facility] Last Admin: 08/16/18 14:25 Dose: 20 mg Multivitamins (Hexavitamin) 1 tab PEG DAILY [facility] Last Admin: 08/16/18 09:24 Dose: 1 tab Pantoprazole Sodium (Protonix Susp) 40 mg PEG DAILY [facility] Last Admin: 08/16/18 09:24 Dose: 40 mg Propranolol HCl (Inderal) 5 mg PEG TID [facility] Last Admin: 08/16/18 17:55 Dose: 5 mg Quetiapine Fumarate (Seroquel) 25 mg JT Q12 [facility] Last Admin: 08/16/18 09:26 Dose: 25 mg Vitamin A (Vitamin A & D Oint Ud Foilpak) 1 ea TOP BID [facility] Last Admin: 08/16/18 17:56 Dose: 1 ea - Labs Labs: 08/16/18 05:07 08/16/18 05:07 PT 17.7 SECONDS (9.7-12.2) H 07/28/18 06:19 INR 1.6 07/28/18 06:19 APTT 52 SECONDS (21-34) H 07/31/18 05:56 Assessment and Plan (1) NEHA (acute kidney injury) Status: Acute (2) Acute renal failure Status: Acute (3) Acute respiratory failure Status: Acute (4) Aspiration pneumonia Status: Acute (5) Septic shock Status: Acute (6) Urinary tract infection Status: Acute (7) Diabetes mellitus Status: Chronic
[2018-08-17] MEDS: (Novolog) Insulin Aspart, Recombinant 100 u/ml 10 ml vial SC SCH ×4 (00:15→17:19)
[2018-08-17 05:36] LABS: BASO # 0.1 K/uL (0.0-0.2); BASO % 0.6 % (0.0-2.0); EOS # 0.3 K/uL (0.0-0.7); EOS % 2.8 % (0.0-4.0); HEMOGLOBIN 7.7 g/dL (11.0-16.0); LYMPH # 1.7 K/uL (1.0-4.3); LYMPH % 15.8 % (20.0-40.0); MEAN CELL VOLUME 89.9 fL (81.0-99.0); MEAN CORPUSCULAR HEMOGLOBIN 30.5 pg (27.0-31.0); MEAN PLATELET VOLUME 7.8 fL (7.2-11.7); MONO # 0.7 K/uL (0.0-0.8); MONO % 6.3 % (0.0-10.0); NEUT % 74.5 % (50.0-75.0); RBC 2.51 Mil/uL (3.80-5.20); WHITE BLOOD COUNT 10.7 K/uL (4.8-10.8)
[2018-08-17 06:09] LABS: ALB/GLOB RATIO 0.8 (1.0-2.1); ALBUMIN 2.9 g/dL (3.5-5.0); ALT/SGPT 61 U/L (9-52); AST/SGOT 37 U/L (14-36); BLOOD UREA NITROGEN 50 mg/dL (7-17); CALCIUM 8.8 mg/dl (8.6-10.4); GFR NON-AFRICAN AMERICAN 52
[2018-08-17] MEDS: Acetaminophen 650mg/20.3ml solution UD PEG PRN (08:53)
[2018-08-17] MEDS: Multiple Vitamins Tab PEG SCH (09:10)
[2018-08-17] MEDS: Pantoprazole 40 mg Susp UD PEG SCH (09:11)
[2018-08-17] MEDS: (Lantus) Insulin Glargine, Recombinant SC SCH ×2 (09:11→22:10)
[2018-08-17] MEDS: Vitamins A & D Oint UD Foilpak TOP SCH ×2 (09:11→20:02)
[2018-08-17] MEDS: Propranolol 5 mg Tab PEG SCH ×3 (09:12→17:15)
[2018-08-17] MEDS: Lactobacillus Acidophilus 500 MU Cap PEG SCH ×2 (09:13→22:10)
[2018-08-17] MEDS: Bacitracin Ointment 30 GM TUBE TOP SCH ×2 (09:21→17:15)
[2018-08-17 13:37] LABS: HEMOGLOBIN 8.1 g/dL (11.0-16.0); MEAN CORPUSCULAR HEMOGLOBIN 30.7 pg (27.0-31.0); MEAN CORPUSCULAR HGB CONC 33.8 g/dL (33.0-37.0); MEAN PLATELET VOLUME 8.2 fL (7.2-11.7); RBC 2.62 Mil/uL (3.80-5.20); RED CELL DISTRIBUTION WIDTH 16.3 % (11.5-14.5); WHITE BLOOD COUNT 8.8 K/uL (4.8-10.8)
--- NOTE | 2018-08-17 18:44 | CP.PCM.PN ---
<Elijah Weinberg - Last Filed: 08/17/18 18:44> Subjective - Date & Time of Evaluation Date of Evaluation: 08/17/18 Time of Evaluation: 18:44 - Subjective Subjective: PGY-[address] Merry Nesbitt Patient seen and examined at bedside. Again, patient was asleep on exam. She could not be awakened with sternal rub or calling her name. Per nursing, patient continues to be agitated overnight. Trazadone HS added. She remains on the vent. ROS unable to be obtained. Objective - Vital Signs/Intake and Output Vital Signs (last 24 hours): Temp Pulse Resp BP Pulse Ox 97.7 F 68 18 81/42 L 100 08/17/18 16:00 08/17/18 16:00 08/17/18 16:00 08/17/18 16:00 08/17/18 16:00 Intake and Output: 08/17/18 08/17/18 06:59 18:59 Intake Total 600 Balance 600 - Medications Medications: Current Medications Acetaminophen (Tylenol 650mg/20.3ml Solution Ud) 650 mg PEG Q6 PRN Last Admin: 08/17/18 08:53 Dose: 650 mg Albuterol/Ipratropium (Duoneb 3 Mg/0.5 Mg (3 Ml) Ud) 3 ml INH RQ4 PRN PRN Reason: Shortness of Breath Last Admin: 08/13/18 19:00 Dose: 3 ml Ascorbic Acid (Vitamin C 500 Mg Tab) 1,000 mg NG DAILY [facility] Last Admin: 08/17/18 09:11 Dose: 1,000 mg Bacitracin (Bacitracin) 1 gm TOP BID [facility] Last Admin: 08/17/18 17:15 Dose: 1 appl Insulin Aspart (Novolog) 0 unit SC Q6 [facility]; Protocol Last Admin: 08/17/18 17:19 Dose: 2 units Insulin Glargine (Lantus) 15 unit SC Q12 [facility] Last Admin: 08/17/18 09:11 Dose: 15 u Lactobacillus Acidophilus (Bacid Acidophilus) 1 cap PEG Q12 [facility] Last Admin: 08/17/18 09:13 Dose: 1 cap Linezolid (Zyvox) 600 mg PO BID [facility]; Protocol Last Admin: 08/17/18 17:15 Dose: 600 mg Methimazole (Tapazole) 20 mg PO Q8 [facility] Last Admin: 08/17/18 13:37 Dose: 20 mg Multivitamins (Hexavitamin) 1 tab PEG DAILY [facility] Last Admin: 08/17/18 09:10 Dose: 1 tab Pantoprazole Sodium (Protonix Inj) 40 mg IVP Q12H [facility] Last Admin: 08/17/18 15:44 Dose: Not Given Propranolol HCl (Inderal) 5 mg PEG TID [facility] Last Admin: 08/17/18 17:15 Dose: 5 mg Quetiapine Fumarate (Seroquel) 25 mg JT Q12 [facility] Last Admin: 08/17/18 09:13 Dose: 25 mg Trazodone HCl (Desyrel) 25 mg PO HS [facility] Vitamin A (Vitamin A & D Oint Ud Foilpak) 1 ea TOP BID [facility] Last Admin: 08/17/18 09:11 Dose: 1 ea - Labs Labs: 08/17/18 12:50 08/17/18 05:30 PT 17.7 SECONDS (9.7-12.2) H 07/28/18 06:19 INR 1.6 07/28/18 06:19 APTT 52 SECONDS (21-34) H 07/31/18 05:56 - Constitutional Appears: Chronically Ill - Head Exam Head Exam: ATRAUMATIC, NORMOCEPHALIC - Eye Exam Eye Exam: EOMI - ENT Exam ENT Exam: Mucous Membranes Moist - Respiratory Exam Additional comments: Trach collar on vent - Cardiovascular Exam Cardiovascular Exam: +S1, +S2. absent: Murmur - GI/Abdominal Exam GI & Abdominal Exam: Soft, Normal Bowel Sounds. absent: Tenderness - Neurological Exam Neurological Exam: absent: Alert, Awake - Psychiatric Exam Additional comments: Unable to assess, patient cannot be awakened - Skin Skin Exam: Dry, Intact, Normal Color, Warm Assessment and Plan - Assessment and Plan (Free Text) Assessment: Septic Shock Pneumonia Urinary Tract Infection * Infectious Disease (Dr. Brock) on case-->help appreciated * MRSA not detected * Antibiotics * off antibiotics * Treated for pneumonia and uti during hospitalization * Patient had low grade fever at 100.8F * Recultured: UCx Gram +cocci * BCx negative x1 * CXR 08/12: atelectasis/infiltrate in L lung base, atelectasis in R mid lung * CBC dropped overnight 9.4 -> 7.7 * Eliquis d/c'd - repeat echo to assess for thrombus, if eliquis can be discontinued. * STAT Repeat CBC 8.1. Heme occult negative. * Q6 CBC tonight to monitor - transfuse if HgB drops below 8. * Trazodole HCl 25 mg PO HS added for nighttime agitation. 2) Acute Respiratory Failure Pulmonary Edema Bilateral Pleural Effusion and Consolidations Likely Secondary to Aspiration Pneumonia Anoxic Encephalopagty Assessment/Plan * On trach collar trial * Patient had two code blues (07/10; 07/20) during hospitalizations * CXR 08/12: atelectasis/infiltrate in L lung base, atelectasis in R mid lung * Patient remains on vent - having difficulty weaning. 3) Anoxic Encephalopathy Ventricular Tachycardia NSTEMI Apical Thrombus LLE DVT Assessment/Plan * Code Blue 07/10: SVT==>VT required amiodarone, magnesium, one shock delivered * Code Blue 07/20: vtach s/p amiodarone, fluid, calcium gluconate, required compressions and shock * Cardiology Dr Francisco on case help appreciated * No cath needed. * Medical management * Echocardiogram (07/07/18): left ventricle systolic function is borderline, ejection fraction is 45-50%, no aortic regurgitation is present, mitral regurgitation is mild. Mild tricuspid regurgitation. mild pulmonary hypertension, mild pulmonic valvular regurgitation * Contrast Echo: Large apical hypokinesis a large 30 x 20 mm soft tissue apical sessile mass suggestive of thrombus overall fraction 40%. Obtain a HUBERT or/consider stress card myopathy if coronary disease is excluded further fi ndings per report * Monitor electrolytes Via Peg * Eliquis 5 mg PO BID * Aspirin 81 mg PO 1x/day * Propranolol 5mg PO TID restart 08/08/18 * Crestor 2.5 mg PO HS * 4) Urinary Tract Infection Assessment/Plan * Infectious disease on board help appreciated * UTI treated during hospitalization * Patient had fever 100.8F * UCx Gram +cocci upon reculture 5) Diabetes-->chronic Assessment/Plan * HgBA1c: 7.8 * Hypoglycemic protocol * Lantus 15 units subcutaneous at bedtime Q12 6) Acute on Chronic Renal Failure Assessment/Plan * Nephrology (Dr. Hyde) on board--> help appreciated * Patient will likely not need dialysis * Renal function continues to improve 7) Hyperthyroidism? Low TSH, and Free T4 Thyroid Storm Assessment/Plan * Note Thyroid studies taken before amiodarone was given (please advised this is not amiodarone induced her levels were abnormal prior) * Patient does not have prior thyroid history * Endocrinology (Dr. 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 She will need outpatient FNA Bx of the complex Left Lobe cyst (please see full report) * Methimazole 20mg PO TID * Propranolol 5 mg PO TID was discontinued 08/03/18; restart 08/08/18 * Monitor LFTs 8) Anemia Likely Secondary to Chronic Diseases Assessment/Plan * Iron normal, TIBC low, Iron Saturation normal, Ferritin normal * Stool occult blood negative * B12 normal * Folate Normal * Transfused 1 unit PRBC 07/22/18 * Patient is on Eliquis restarted on 07/31/18 given apical thrombus 9) Transminitis-->improving * Likely secondary to Sepsis and Amiodarone (which was discontinued) * Hepatitis serology negative 10) Vitamin D deficiency Assessment plan * 50,000 international units once a week for at least 8-12 weeks started on 07/11/18 11) Thrombocytopenia-->resolved Assessment plan * Sepsis, vs Methimazole? * Fibrinogen elevated * HIT and RUSTY both negative for HIT * Currently normalized 12) 13 mm Left Adrenal Nodule * As seen on CT Chest 07/16/18 * Will need outpatient follow up for cross sectional imaging for better characterization 13) Hypernatremia-->resolved * Free water 250 ml 3x/day via OGT * Na now normal 14) LLE DVT * Eliquis 5 mg PO BID restarted on 07/31/18 * Acute thrombosis of the left common femoral and femoral veins with severe reduction of the venous return on 07/18/18 venous doppler 15) Deconditioning * Patient needs continued PT/OT * PT worked with patient on 07/12, unable to wake patient today, will attempt again tomorrow. 16) Prophylactic measure * Protonix 40mg PO BID * Lactobacillus 1 cap PO BID * MVI 1x/day * Vitamin C 1,000 NG 1x/day * Trach and Peg * Follow peg intake * SCD on Right and contraindicated on Left due to DVT * Peg feedings * PICC Line 07/31/18 * Seroquel 12.5mg PO Q12H * Note: speak to patient in alexis to assess neurologic status-->she does follow * -Ativan 1 mg given overnight last night for agitation * -Atarax 50 mg given this morning for agitation Disposition: Patient does not have insurance: please f/u with social/case management to start insurance process for potential LTAC/rehab. She will need significant rehab to regain muscle and strength. Patient has trach, has been on vent. <Pravin Garcia - Last Filed: 12/07/18 11:51> Objective - Vital Signs/Intake and Output Vital Signs (last 24 hours): Temp Pulse Resp BP Pulse Ox 98.7 F 95 H 20 96/60 L 100 12/07/18 08:00 12/07/18 08:00 12/07/18 08:00 12/07/18 08:00 12/07/18 08:00 Intake and Output: 12/07/18 12/07/18 06:59 18:59 Intake Total 920 Output Total 425 Balance 495 - Medications Medications: Current Medications Albuterol/Ipratropium (Duoneb 3 Mg/0.5 Mg (3 Ml) Ud) 3 ml INH RQ6 PRN PRN Reason: Shortness of Breath Last Admin: 12/06/18 13:20 Dose: 3 ml Aspirin (Aspirin Chewable) 81 mg GT DAILY [facility] Last Admin: 12/07/18 09:55 Dose: 81 mg Dextrose (Dextrose 50% Inj) 0 ml IVP .STAT PRN; Protocol PRN Reason: Hypoglycemia Protocol Dextrose (Glutose 15) 0 gm PO .ONCE PRN; Protocol PRN Reason: Hypoglycemia Protocol Emollient Ointment (Vaseline Oint) 5 gm TOP DAILY [facility] Last Admin: 12/07/18 09:56 Dose: 5 gm Glucagon (Glucagen Diagnostic Kit) 0 mg IM .STAT PRN; Protocol PRN Reason: Hypoglycemia Protocol Methimazole (Tapazole) 10 mg PO Q8 [facility] Last Admin: 12/07/18 05:41 Dose: 10 mg Midodrine (Proamatine) 10 mg PO TID [facility] Last Admin: 12/07/18 09:55 Dose: 10 mg Ondansetron HCl (Zofran Inj) 4 mg IVP DAILY@ONCE PRN PRN Reason: Nausea/Vomiting Last Admin: 11/29/18 17:05 Dose: 4 mg Pantoprazole Sodium (Protonix Susp) 40 mg GT Q12H [facility] Last Admin: 12/07/18 09:55 Dose: 40 mg Simethicone (Mylicon Chew Tab) 80 mg PO QID [facility] Last Admin: 12/07/18 09:55 Dose: 80 mg Sodium Bicarbonate (Sodium Bicarbonate Tab) 650 mg PO BID [facility] Last Admin: 12/07/18 09:55 Dose: 650 mg - Labs Labs: 11/28/18 11:26 11/28/18 11:26 PT 13.3 SECONDS (9.7-12.2) H 10/23/18 06:05 INR 1.2 10/23/18 06:05 APTT 23 SECONDS (21-34) 10/02/18 06:10 Attending/Attestation - Attestation I have personally seen and examined this patient.: Yes I have fully participated in the care of the patient.: Yes I have reviewed all pertinent clinical information, including history, physical exam and plan: Yes Notes (Text): 1)Septic Shock Pneumonia Urinary Tract Infection 2) Acute Respiratory Failure Pulmonary Edema Bilateral Pleural Effusion and Consolidations Likely Secondary to Aspiration Pneumonia Anoxic Encephalopathy 3) Anoxic Encephalopathy Ventricular Tachycardia NSTEMI Apical Thrombus LLE DVT 4) Urinary Tract Infection 5) Diabetes-->chronic 6) Acute on Chronic Renal Failure 7) Hyperthyroidism? Low TSH, and Free T4 Thyroid Storm 8) Anemia Likely Secondary to Chronic Diseases 9) Transminitis-->improving 10) Vitamin D deficiency 11) Thrombocytopenia-->resolved 12) 13 mm Left Adrenal Nodule 13) Hypernatremia-->resolved 14) LLE DVT 15) Deconditioning
[2018-08-17 19:05] LABS: HEMOGLOBIN 8.2 g/dL (11.0-16.0); MEAN CELL VOLUME 90.8 fL (81.0-99.0); MEAN CORPUSCULAR HEMOGLOBIN 30.4 pg (27.0-31.0); MEAN CORPUSCULAR HGB CONC 33.4 g/dL (33.0-37.0); MEAN PLATELET VOLUME 7.8 fL (7.2-11.7); RBC 2.71 Mil/uL (3.80-5.20); RED CELL DISTRIBUTION WIDTH 16.3 % (11.5-14.5); WHITE BLOOD COUNT 9.4 K/uL (4.8-10.8)
[2018-08-17] MEDS ORDERED: traZODone 25 mg Tab PO SCH (22:00)
[2018-08-18 00:04] LABS: HEMOGLOBIN 7.5 g/dL (11.0-16.0); MEAN CELL VOLUME 90.8 fL (81.0-99.0); MEAN CORPUSCULAR HEMOGLOBIN 30.7 pg (27.0-31.0); MEAN CORPUSCULAR HGB CONC 33.7 g/dL (33.0-37.0); RBC 2.46 Mil/uL (3.80-5.20); RED CELL DISTRIBUTION WIDTH 16.1 % (11.5-14.5); WHITE BLOOD COUNT 7.1 K/uL (4.8-10.8)
[2018-08-18] MEDS ORDERED: Sodium Chloride 0.9% 500 ML IV ONE ×2 (00:31→01:53)
[2018-08-18] MEDS: (Novolog) Insulin Aspart, Recombinant 100 u/ml 10 ml vial SC SCH ×4 (01:00→18:18)
[2018-08-18] MEDS: Acetaminophen 650mg/20.3ml solution UD PEG PRN (02:10)
[2018-08-18 06:33] LABS: BASO % 0.6 % (0.0-2.0); EOS # 0.4 K/uL (0.0-0.7); EOS % 4.7 % (0.0-4.0); HEMOGLOBIN 9.2 g/dL (11.0-16.0); LYMPH # 1.3 K/uL (1.0-4.3); LYMPH % 16.6 % (20.0-40.0); MEAN CELL VOLUME 89.5 fL (81.0-99.0); MEAN CORPUSCULAR HEMOGLOBIN 30.6 pg (27.0-31.0); MEAN CORPUSCULAR HGB CONC 34.2 g/dL (33.0-37.0); MEAN PLATELET VOLUME 8.3 fL (7.2-11.7); MONO # 0.4 K/uL (0.0-0.8); NEUT # 5.9 K/uL (1.8-7.0); NEUT % 73.1 % (50.0-75.0); RBC 3.01 Mil/uL (3.80-5.20); RED CELL DISTRIBUTION WIDTH 15.4 % (11.5-14.5)
[2018-08-18 06:50] LABS: ALB/GLOB RATIO 0.8 (1.0-2.1); ALBUMIN 2.6 g/dL (3.5-5.0)
[2018-08-18] MEDS: Propranolol 5 mg Tab PEG SCH ×3 (10:02→17:57)
[2018-08-18] MEDS: (Lantus) Insulin Glargine, Recombinant SC SCH ×2 (10:05→21:07)
[2018-08-18] MEDS: Multiple Vitamins Tab PEG SCH (10:05)
[2018-08-18] MEDS: Lactobacillus Acidophilus 500 MU Cap PEG SCH ×2 (10:06→21:10)
[2018-08-18] MEDS: Vitamins A & D Oint UD Foilpak TOP SCH ×2 (10:17→16:59)
[2018-08-18] MEDS: Bacitracin 500 Units/gm Oint Foilpak UD TOP SCH ×2 (11:18→16:59)
[2018-08-18] MEDS: Bacitracin Ointment 30 GM TUBE TOP SCH (11:19)
--- NOTE | 2018-08-18 16:08 | RAD ---
HISTORY: Monitor for effusion COMPARISON: Chest x-ray performed 08/16/18 TECHNIQUE: Chest, one view. FINDINGS: Tracheostomy tube. Examination limited by habitus, hypoinflation, and patient obliquity. Allowing for limitations of the study, the left-sided PICC likely terminates at the proximal right atrium. LUNGS: Mild pulmonary venous congestion. No focal consolidation. Please note that chest x-ray has limited sensitivity for the detection of pulmonary masses. PLEURA: Small left pleural effusion. No definite pneumothorax . CARDIOVASCULAR: Borderline cardiomegaly. Atherosclerotic calcification present. OSSEOUS STRUCTURES: Osseous demineralization. Degenerative changes. VISUALIZED UPPER ABDOMEN: Unremarkable. OTHER FINDINGS: None. IMPRESSION: Allowing for limitations of the study, the left-sided PICC likely terminates at the proximal right atrium. Tracheostomy tube. Mild pulmonary venous congestion. Small left pleural effusion.
--- NOTE | 2018-08-18 17:43 | CP.PCM.PN ---
<Elijah Weinberg - Last Filed: 08/18/18 17:35> Subjective - Date & Time of Evaluation Date of Evaluation: 08/18/18 Time of Evaluation: 17:35 - Subjective Subjective: PGY-[address] Merry Leahy Patient seen and examined at bedside. Again, patient was asleep on exam. She could not be awakened with sternal rub or calling her name. However, later on rounds, patient was able to be awakened by and was following some simple commands. Per nursing, patient continues to be agitated overnight. Trazodone, Seroquel discontinued. Ambien and Benadryl at night to reset circadian rhythm per Dr. Pham. Patient remains on the vent. ROS unable to be obtained. Objective - Vital Signs/Intake and Output Vital Signs (last 24 hours): Temp Pulse Resp BP Pulse Ox 97.7 F 84 100 H 120/55 L 100 08/18/18 16:00 08/18/18 12:00 08/18/18 16:00 08/18/18 16:55 08/18/18 12:00 Intake and Output: 08/18/18 08/18/18 06:59 18:59 Intake Total 2105 Balance 2105 - Medications Medications: Current Medications Acetaminophen (Tylenol 650mg/20.3ml Solution Ud) 650 mg PEG Q6 PRN Last Admin: 08/18/18 02:10 Dose: 650 mg Albuterol/Ipratropium (Duoneb 3 Mg/0.5 Mg (3 Ml) Ud) 3 ml INH RQ4 PRN PRN Reason: Shortness of Breath Last Admin: 08/13/18 19:00 Dose: 3 ml Ascorbic Acid (Vitamin C 500 Mg Tab) 1,000 mg NG DAILY [facility] Last Admin: 08/18/18 10:18 Dose: 1,000 mg Bacitracin (Bacitracin) 1 ea TOP BID [facility] Last Admin: 08/18/18 16:59 Dose: 1 ea Diphenhydramine HCl (Benadryl) 50 mg PEG HS [facility] Heparin Sodium (Porcine) (Heparin) 5,000 units SC Q12 [facility] Insulin Aspart (Novolog) 0 unit SC Q6 [facility]; Protocol Last Admin: 08/18/18 12:18 Dose: Not Given Insulin Glargine (Lantus) 15 unit SC Q12 [facility] Last Admin: 08/18/18 10:05 Dose: 15 u Lactobacillus Acidophilus (Bacid Acidophilus) 1 cap PEG Q12 [facility] Last Admin: 08/18/18 10:06 Dose: 1 cap Linezolid (Zyvox) 600 mg PO BID [facility]; Protocol Last Admin: 08/18/18 17:00 Dose: 600 mg Methimazole (Tapazole) 20 mg PO Q8 [facility] Last Admin: 08/18/18 14:01 Dose: 20 mg Multivitamins (Hexavitamin) 1 tab PEG DAILY [facility] Last Admin: 08/18/18 10:05 Dose: 1 tab Pantoprazole Sodium (Protonix Inj) 40 mg IVP Q12H [facility] Last Admin: 08/18/18 11:19 Dose: 40 mg Propranolol HCl (Inderal) 5 mg PEG TID [facility] Last Admin: 08/18/18 13:59 Dose: Not Given Vitamin A (Vitamin A & D Oint Ud Foilpak) 1 ea TOP BID [facility] Last Admin: 08/18/18 16:59 Dose: 1 ea Zolpidem Tartrate (Ambien) 5 mg PEG HS [facility] - Labs Labs: 08/18/18 06:26 08/18/18 06:26 PT 17.7 SECONDS (9.7-12.2) H 07/28/18 06:19 INR 1.6 07/28/18 06:19 APTT 52 SECONDS (21-34) H 07/31/18 05:56 - Constitutional Appears: Chronically Ill - Head Exam Head Exam: ATRAUMATIC, NORMOCEPHALIC - Eye Exam Eye Exam: EOMI - ENT Exam ENT Exam: Mucous Membranes Moist - Neck Exam Additional comments: trach attached to vent - Respiratory Exam Respiratory Exam: Clear to Ausculation Bilateral. absent: Rhonchi, Wheezes Additional comments: On vent - Cardiovascular Exam Cardiovascular Exam: RRR, +S1, +S2. absent: Murmur - GI/Abdominal Exam GI & Abdominal Exam: Soft, Normal Bowel Sounds. absent: Tenderness - Extremities Exam Extremities Exam: absent: Pedal Edema, Tenderness - Neurological Exam Neurological Exam: Awake. absent: Alert - Skin Skin Exam: Dry, Intact Assessment and Plan - Assessment and Plan (Free Text) Assessment: Septic Shock Pneumonia Urinary Tract Infection * Infectious Disease (Dr. Brock) on case-->help appreciated * MRSA not detected * Antibiotics * off antibiotics * Treated for pneumonia and uti during hospitalization * Patient had low grade fever at 100.8F * Recultured: UCx Gram +cocci * BCx negative x1 * CXR 08/12: atelectasis/infiltrate in L lung base, atelectasis in R mid lung * CBC dropped overnight 9.4 -> 7.7 * Eliquis d/c'd - Per Dr. Francisco, Eliquis must remain held at this time * STAT Repeat CBC 8.1. Heme occult negative. * S/p 1 unit PRBCs overnight. HgB 9.2 * Likely 2/2 continued heavy vaginal bleeding Agitation - Trazodone discontinued - Seroquel discontinued - New Meds: - --Benadryl 50 mg PEG HS - --Ambien 10 mg PEG HS - --> attempting to re-calibrate patient's circadian rhythm, as she has continued to be up during the night and agitated and sedated during the day. - Avoid Haldol or Benzos for agitation 2) Acute Respiratory Failure Pulmonary Edema Bilateral Pleural Effusion and Consolidations Likely Secondary to Aspiration Pneumonia Anoxic Encephalopagty Assessment/Plan * On trach collar trial * Patient had two code blues (07/10; 07/20) during hospitalizations * CXR 08/12: atelectasis/infiltrate in L lung base, atelectasis in R mid lung * Patient remains on vent - having difficulty weaning. * 667 mg phoslo given once * Repeat CXR demonstrates worsening pulmonary congestion * --20 Lasix IVP given once 3) Anoxic Encephalopathy Ventricular Tachycardia NSTEMI Apical Thrombus LLE DVT Assessment/Plan * Code Blue 07/10: SVT==>VT required amiodarone, magnesium, one shock delivered * Code Blue 07/20: vtach s/p amiodarone, fluid, calcium gluconate, required comp ressions and shock * Cardiology Dr Francisco on case help appreciated * No cath needed. * Medical management * Echocardiogram (07/07/18): left ventricle systolic function is borderline, ejection fraction is 45-50%, no aortic regurgitation is present, mitral regurgitation is mild. Mild tricuspid regurgitation. mild pulmonary hypertension, mild pulmonic valvular regurgitation * Contrast Echo: Large apical hypokinesis a large 30 x 20 mm soft tissue apical sessile mass suggestive of thrombus overall fraction 40%. Obtain a HUBERT or/consider stress card myopathy if coronary disease is excluded further findings per report * Monitor electrolytes Via Peg * Eliquis 5 mg PO BID * Aspirin 81 mg PO 1x/day * Propranolol 5mg PO TID restart 08/08/18 * Crestor 2.5 mg PO HS * 4) Urinary Tract Infection Assessment/Plan * Infectious disease on board help appreciated * UTI treated during hospitalization * Patient had fever 100.8F * UCx Gram +cocci upon reculture 5) Diabetes-->chronic Assessment/Plan * HgBA1c: 7.8 * Hypoglycemic protocol * Lantus 15 units subcutaneous at bedtime Q12 6) Acute on Chronic Renal Failure Assessment/Plan * Nephrology (Dr. Hyde) on board--> help appreciated * Patient will likely not need dialysis * Renal function continues to improve 7) Hyperthyroidism? Low TSH, and Free T4 Thyroid Storm Assessment/Plan * Note Thyroid studies taken before amiodarone was given (please advised this is not amiodarone induced her levels were abnormal prior) * Patient does not have prior thyroid history * Endocrinology (Dr. 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 She will need outpatient FNA Bx of the complex Left Lobe cyst (please see full report) * Methimazole 20mg PO TID * Propranolol 5 mg PO TID was discontinued 08/03/18; restart 08/08/18 * Monitor LFTs 8) Anemia Likely Secondary to Chronic Diseases Assessment/Plan * Iron normal, TIBC low, Iron Saturation normal, Ferritin normal * Stool occult blood negative * B12 normal * Folate Normal * Transfused 1 unit PRBC 07/22/18 * Patient is on Eliquis restarted on 07/31/18 given apical thrombus 9) Transminitis-->improving * Likely secondary to Sepsis and Amiodarone (which was discontinued) * Hepatitis serology negative 10) Vitamin D deficiency Assessment plan * 50,000 international units once a week for at least 8-12 weeks started on 07/11/18 11) Thrombocytopenia-->resolved Assessment plan * Sepsis, vs Methimazole? * Fibrinogen elevated * HIT and RUSTY both negative for HIT * Currently normalized 12) 13 mm Left Adrenal Nodule * As seen on CT Chest 07/16/18 * Will need outpatient follow up for cross sectional imaging for better characterization 13) Hypernatremia-->resolved * Free water 250 ml 3x/day via OGT * Na now normal 14) LLE DVT * Eliquis 5 mg PO BID restarted on 07/31/18 * Acute thrombosis of the left common femoral and femoral veins with severe reduction of the venous return on 07/18/18 venous doppler 15) Deconditioning * Patient needs continued PT/OT * PT worked with patient on 07/12, unable to wake patient today, will attempt again tomorrow. 16) Prophylactic measure * Protonix 40mg PO BID * Lactobacillus 1 cap PO BID * MVI 1x/day * Vitamin C 1,000 NG 1x/day * Trach and Peg * Follow peg intake * SCD on Right and contraindicated on Left due to DVT * Peg feedings * PICC Line 07/31/18 * Seroquel 12.5mg PO Q12H * Note: speak to patient in alexis to assess neurologic status-->she does follow * -Ativan 1 mg given overnight last night for agitation * -Atarax 50 mg given this morning for agitation Disposition: Patient does not have insurance: please f/u with social/case management to start insurance process for potential LTAC/rehab. She will need significant rehab to regain muscle and strength. Patient has trach, has been on vent. <Saira Leahy V - Last Filed: 08/18/18 19:17> Objective - Vital Signs/Intake and Output Vital Signs (last 24 hours): Temp Pulse Resp BP Pulse Ox 97.7 F 84 100 H 120/55 L 100 08/18/18 16:00 08/18/18 12:00 08/18/18 16:00 08/18/18 16:55 08/18/18 12:00 Intake and Output: 08/18/18 08/18/18 06:59 18:59 Intake Total 2105 Balance 2105 - Medications Medications: Current Medications Acetaminophen (Tylenol 650mg/20.3ml Solution Ud) 650 mg PEG Q6 PRN Last Admin: 08/18/18 02:10 Dose: 650 mg Albuterol/Ipratropium (Duoneb 3 Mg/0.5 Mg (3 Ml) Ud) 3 ml INH RQ4 PRN PRN Reason: Shortness of Breath Last Admin: 08/13/18 19:00 Dose: 3 ml Ascorbic Acid (Vitamin C 500 Mg Tab) 1,000 mg NG DAILY [facility] Last Admin: 08/18/18 10:18 Dose: 1,000 mg Bacitracin (Bacitracin) 1 ea TOP BID [facility] Last Admin: 08/18/18 16:59 Dose: 1 ea Diphenhydramine HCl (Benadryl) 50 mg PEG HS [facility] Heparin Sodium (Porcine) (Heparin) 5,000 units SC Q12 [facility] Insulin Aspart (Novolog) 0 unit SC Q6 [facility]; Protocol Last Admin: 08/18/18 18:18 Dose: Not Given Insulin Glargine (Lantus) 15 unit SC Q12 [facility] Last Admin: 08/18/18 10:05 Dose: 15 u Lactobacillus Acidophilus (Bacid Acidophilus) 1 cap PEG Q12 [facility] Last Admin: 08/18/18 10:06 Dose: 1 cap Linezolid (Zyvox) 600 mg PO BID [facility]; Protocol Last Admin: 08/18/18 17:00 Dose: 600 mg Methimazole (Tapazole) 20 mg PO Q8 [facility] Last Admin: 08/18/18 14:01 Dose: 20 mg Multivitamins (Hexavitamin) 1 tab PEG DAILY [facility] Last Admin: 08/18/18 10:05 Dose: 1 tab Pantoprazole Sodium (Protonix Inj) 40 mg IVP Q12H [facility] Last Admin: 08/18/18 11:19 Dose: 40 mg Propranolol HCl (Inderal) 5 mg PEG TID [facility] Last Admin: 08/18/18 17:57 Dose: Not Given Vitamin A (Vitamin A & D Oint Ud Foilpak) 1 ea TOP BID [facility] Last Admin: 08/18/18 16:59 Dose: 1 ea Zolpidem Tartrate (Ambien) 5 mg PEG HS [facility] - Labs Labs: 08/18/18 06:26 08/18/18 06:26 PT 17.7 SECONDS (9.7-12.2) H 07/28/18 06:19 INR 1.6 07/28/18 06:19 APTT 52 SECONDS (21-34) H 07/31/18 05:56 Assessment and Plan (1) Septic shock Status: Acute (2) Acute respiratory failure Status: Acute (3) Urinary tract infection Status: Acute (4) Acute renal failure Status: Acute (5) Aspiration pneumonia Status: Acute (6) Diabetes mellitus Status: Chronic (7) Ventricular arrhythmia Status: Acute (8) Hyperthyroidism Status: Acute (9) Anemia Status: Acute (10) Prophylactic measure Status: Acute Attending/Attestation - Attestation I have personally seen and examined this patient.: Yes I have fully participated in the care of the patient.: Yes I have reviewed all pertinent clinical information, including history, physical exam and plan: Yes Notes (Text): 1) Septic Shock secondary to Pneumonia and Urinary Tract Infection Assessment/Plan * Infectious Disease (Dr. Brock) on case-->help appreciated * Tmax 101F (08/07/18); last fever, no elevated white count * Patient is off pressors. Completed IV abx for aspiration pneumonia and on PO abx for latest urinary tract infection * 08/12/18 Blood cultur: no growth after 5 days X2 * 08/12/18 Urine Culture: VRE * 08/14/18: Urine culture Repeat No growth * patient is on Zyvox 600mg PO BID (started on 08/14/18): ID has recommended for 7 days total * Chest xray (08/18/18): left sided PICC likely terminates at the proximal right atrium. Tracheostomy tube. Mild pulmonary venous congestion. Small left pleural effusion. 2) Anoxic Encephalopathy Assessment/Plan * Code Blue 07/10 and 07/20 * Patient prior knowledge of 5 languages per but does not follow commands; I did speak with the and as for him to speak with her and does not follow with him. Later with his nurse, Martin Lealminerva patient noteably more agitated when she is having frequent bms or needs to be washed and is unable to communicate her needs because of limited of language. * I did speak with Dr. Pham today in regards to reset patient's sleep wake cycle--> her pattern tends to be she is agitated at night when her is not present (her reliable social cue) receives benzo/haldol/seroquel and becomes very lethargic in the morning which presents rehab from working with her. We have planned for Benadryl 50mg via peg and ambien 5mg POqHS to reset her sleep wake cycle. We will increase benadryl dose or add Ambien 5mg POqHS if does not hold patient at night. Note Patient is connected to vent. She is unable to get off vent keeps failing trial for the past 3 days. She is unable to get the MRI because the vent does not fit in the MRI. * CT head: no acute intracranial pathology. Age-related changes. no significant interval change. 3) Acute Respiratory Failure Pulmonary Edema Assessment/Plan * Patient underwent tracheostomy 07/24/18 * Patient had tolerated trach collars last weekend thru Tuesday; however she has been on vent for the past three days. When I spoke with the Rn, patient is failed on weaning off vent with Respiratory therapy * Pulmonary (Dr. Lozada) on board-->assisting with weaning from trach on vent to trach collar * Duonebs 3ml Inh Q6H * Add Mucomyst to reduce secretions * Chest xray (08/18/18): left sided PICC likely terminates at the proximal right atrium. Tracheostomy tube. Mild pulmonary venous congestion. Small left pleural effusion-->given dose of Lasix 20mg IV X1 4) Ventricular Tachycardia NSTEMI Apical Thrombus LLE DVT Assessment/Plan * Code Blue 07/10: SVT==>VT required amiodarone, magnesium, one shock delivered * Code Blue 07/20: vtach s/p amiodarone, fluid, calcium gluconate, required compressions and shock * Cardiology Dr Francisco on case help appreciated * No cath needed. * Medical management * No chemical anticoagulation in light of bleeding episodes (patient has dysfunction uterine bleeding required blood transfusions; Ob has been consulted earlier in the hospitalization to inpatient workup)-->recommending heparin 5000 unit subq8 (DVT ppx dose) and aspirin 81mg PO daily; likely thrombus is organized a month of anticoagulation; risk is due to bleeding against stroke * Propranolol 5mg PO TID (hold SBP<100 and HR<60) * Eliquis d/c bleeding and anemia-->dvt ppx and aspirin 4) Urinary Tract Infection Assessment/Plan * Zyvox 600mg PO BID for 7 days since Tuesday08/14/18 per ID for VRE * on Contact isolation 5) Diabetes-->chronic Assessment/Plan * HgBA1c: 7.8 * Hypoglycemic protocol * Lantus 15 units subcutaneous at bedtime Q12 * Accuchecks Q6H * Aspirin 81mg PO daily * Crestor 5mg POqHS 6) Acute on Chronic Renal Failure Assessment/Plan * Nephrology (Dr. Hyde) on board--> help appreciated * Patient will likely not need dialysis * Is mildly uptrending; unclear if related to Zyvox * If continues to uptrend will reconsult renal 7) Hyperthyroidism? Low TSH, and Free T4 Thyroid Storm Assessment/Plan * Note Thyroid studies taken before amiodarone was given (please advised this is not amiodarone induced her levels were abnormal prior) * Patient does not have prior thyroid history * Endocrinology (Dr. 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 She will need outpatient FNA Bx of the complex Left Lobe cyst (please see full report) * Methimazole 20mg PO TID * Propranolol 5 mg PO TID * Monitor LFTs 8) Anemia Likely Secondary to Chronic Diseases Assessment/Plan * Iron normal, TIBC low, Iron Saturation normal, Ferritin normal * Stool occult blood negative * B12 normal * Folate Normal * Transfused 1 unit PRBC 07/22/18, 2 unit of PRBC 08/13/18 1 unit on 08/17/18 * Patient has been seen by OB Hospitalist; no contraindication to anticoagulation * Case discussed with plant operations worker recommending against eliquis in light of bleeding; recommending for DVT ppx and aspirin for now 9) Transminitis-->improving * Likely secondary to Sepsis and Amiodarone (which was discontinued) * Hepatitis serology negative * Normalized 10) Vitamin D deficiency Assessment plan * 50,000 international units once a week (3 doses given so far) * Restart Vitamin D 50,000 IU once a week for 9 weeks (on 08/18/18) 11) Thrombocytopenia-->resolved Assessment plan * HIT/RUSTY were negative 12) 13 mm Left Adrenal Nodule * As seen on CT Chest 07/16/18 * Will need outpatient follow up for cross sectional imaging for better characterization 13) Hypernatremia-->resolved * Free water 250 ml 3x/day via OGT * Na now normal 14) LLE DVT * Eliquis 5 mg PO BID restarted on 07/31/18 * Acute thrombosis of the left common femoral and femoral veins with severe reduction of the venous return on 07/18/18 venous doppler * Patient had completed one month on Eliquis; however she continues to have dysfunction uterine bleeding; cardiology is recommending against eliquis for thrombus given bleeding risk * Will repeat doppler to see if DVT has resolved; may need to consult vascular surgery for IVC filter 15) Deconditioning * Patient needs continued PT/OT * I did speak with Dr. Pham today in regards to reset patient's sleep wake cycle--> her pattern tends to be she is agitated at night when her is not present (her reliable social cue) receives benzo/haldol/seroquel and becomes very lethargic in the morning which presents rehab from working with her. We have planned for Benadryl 50mg via peg and ambien 5mg POqHS to reset her sleep wake cycle. We will increase benadryl dose or add Ambien 5mg POqHS if does not hold patient at night. Note Patient is connected to vent. She is unable to get off vent keeps failing trial for the past 3 days. She is unable to get the MRI because the vent does not fit in the MRI. 16) Prophylactic measure * Protonix 40mg PO BID * Lactobacillus 1 cap PO BID * MVI 1x/day * Vitamin C 1,000 NG 1x/day * s/p Trach and Peg * SCD on Right and contraindicated on Left due to DVT * Peg feedings * Change to Pulmcar 40cc/hr * patient had frequent BMs on prior formula; no diarrhea; we have spoken with dietary to change it * PICC Line 07/31/18 * Note: speak to patient in alexis to assess neurologic status-->she does follow sometimes * Start Benadryl 50mg GT at night and Ambien 5mg POqHS to reset circadian rhythm so patient tries to sleep at night and remain awake during the day to work with PT/OT Disposition: * we are going to reattempt to reset patient's sleep wake cycle. patient is reliant on her as her cue to relieve delirium. Patient is started on Benadryl and Ambien tonight. We will increase Benadryl or Ativan. Recommended to either increase benadryl or increase ambien dose. Do not given benzo/haldol/sequerol-->attempt to increase benadryl dose first. * Eliquis d/c given bleeding-->cardio recommended for dvt ppx and aspirin * Repeat venous doppler to monitor Left DVT; may need to consult vascular s urgery for IVC filter * Zyvox for total of 7 days
--- NOTE | 2018-08-18 18:54 | CP.PCM.PN ---
Subjective - Date & Time of Evaluation Date of Evaluation: 08/18/18 Time of Evaluation: 15:00 - Subjective Subjective: Mrs. Isaacs was seen and examined today in the ICU. Her was at bedside. The patient continues to be vent dependent with a trach. She remains encephalopathic and does not follow commands, but is awake and alert. At night, she tends to become agitated and during the day, she does not participate with PT due to drowsiness from night-time meds for agitation. Objective - Vital Signs/Intake and Output Vital Signs (last 24 hours): Temp Pulse Resp BP Pulse Ox 97.7 F 84 100 H 120/55 L 100 08/18/18 16:00 08/18/18 12:00 08/18/18 16:00 08/18/18 16:55 08/18/18 12:00 Intake and Output: 08/18/18 08/18/18 06:59 18:59 Intake Total 2105 Balance 2105 - Medications Medications: Current Medications Acetaminophen (Tylenol 650mg/20.3ml Solution Ud) 650 mg PEG Q6 PRN Last Admin: 08/18/18 02:10 Dose: 650 mg Acetylcysteine (Acetylcysteine 20%) 4 ml INH RQ6 [facility] Albuterol/Ipratropium (Duoneb 3 Mg/0.5 Mg (3 Ml) Ud) 3 ml INH RQ6 [facility] Ascorbic Acid (Vitamin C 500 Mg Tab) 1,000 mg NG DAILY [facility] Last Admin: 08/18/18 10:18 Dose: 1,000 mg Bacitracin (Bacitracin) 1 ea TOP BID [facility] Last Admin: 08/18/18 16:59 Dose: 1 ea Diphenhydramine HCl (Benadryl) 50 mg PEG HS [facility] Heparin Sodium (Porcine) (Heparin) 5,000 units SC Q12 [facility] Insulin Aspart (Novolog) 0 unit SC Q6 [facility]; Protocol Last Admin: 08/18/18 18:18 Dose: Not Given Insulin Glargine (Lantus) 15 unit SC Q12 [facility] Last Admin: 08/18/18 10:05 Dose: 15 u Lactobacillus Acidophilus (Bacid Acidophilus) 1 cap PEG Q12 [facility] Last Admin: 08/18/18 10:06 Dose: 1 cap Linezolid (Zyvox) 600 mg PO BID [facility]; Protocol Last Admin: 08/18/18 17:00 Dose: 600 mg Methimazole (Tapazole) 20 mg PO Q8 [facility] Last Admin: 08/18/18 14:01 Dose: 20 mg Multivitamins (Hexavitamin) 1 tab PEG DAILY [facility] Last Admin: 08/18/18 10:05 Dose: 1 tab Pantoprazole Sodium (Protonix Inj) 40 mg IVP Q12H [facility] Last Admin: 08/18/18 11:19 Dose: 40 mg Propranolol HCl (Inderal) 5 mg PEG TID [facility] Last Admin: 08/18/18 17:57 Dose: Not Given Vitamin A (Vitamin A & D Oint Ud Foilpak) 1 ea TOP BID [facility] Last Admin: 08/18/18 16:59 Dose: 1 ea Zolpidem Tartrate (Ambien) 5 mg PEG HS [facility] - Labs Labs: 08/18/18 06:26 08/18/18 06:26 PT 17.7 SECONDS (9.7-12.2) H 07/28/18 06:19 INR 1.6 07/28/18 06:19 APTT 52 SECONDS (21-34) H 07/31/18 05:56 - Neurological Exam Neurological Exam: Altered, Awake, CN II-XII Intact, Reflexes Normal Neuro motor strength exam: Left Upper Extremity: 4, Right Upper Extremity: 4, Left Lower Extremity: 4, Right Lower Extremity: 4 Assessment and Plan - Assessment and Plan (Free Text) Assessment: Anoxic brain injury with encephalopathy. The patient's sleep/wake cycles appear to be aberrant. I recommend holding benzodiazepines and antipsychotics and attempting Ambien at night 10 mg and Benadryl 50 mg.
[2018-08-18] MEDS: Albuterol-Ipratrop 3 mg / 0.5 (3 ml) UD INH SCH (19:45)
[2018-08-18] MEDS: Acetylcysteine 20% Inhal Soln (4ml) INH SCH ×2 (19:45)
[2018-08-18] MEDS: Ergocalciferol 50,000 Intl Units Cap GT SCH (23:34)
[2018-08-19] MEDS: Albuterol-Ipratrop 3 mg / 0.5 (3 ml) UD INH SCH ×4 (01:42→19:59)
[2018-08-19] MEDS: Acetylcysteine 20% Inhal Soln (4ml) INH SCH ×4 (01:42→19:59)
[2018-08-19 06:40] LABS: BASO # 0.1 K/uL (0.0-0.2); BASO % 0.7 % (0.0-2.0); EOS # 0.2 K/uL (0.0-0.7); EOS % 1.8 % (0.0-4.0); HEMOGLOBIN 9.6 g/dL (11.0-16.0); MEAN CELL VOLUME 89.5 fL (81.0-99.0); MEAN CORPUSCULAR HEMOGLOBIN 30.2 pg (27.0-31.0); MEAN CORPUSCULAR HGB CONC 33.8 g/dL (33.0-37.0); MEAN PLATELET VOLUME 8.2 fL (7.2-11.7); MONO # 0.4 K/uL (0.0-0.8); MONO % 4.1 % (0.0-10.0); NEUT # 7.1 K/uL (1.8-7.0); NEUT % 81.4 % (50.0-75.0); NRBC % 0.1 % (0.0-2.0); RBC 3.18 Mil/uL (3.80-5.20); RED CELL DISTRIBUTION WIDTH 15.6 % (11.5-14.5); WHITE BLOOD COUNT 8.7 K/uL (4.8-10.8)
[2018-08-19 06:44] LABS: ALB/GLOB RATIO 0.8 (1.0-2.1); ALBUMIN 2.9 g/dL (3.5-5.0); CALCIUM 8.9 mg/dl (8.6-10.4)
[2018-08-19] MEDS: (Novolog) Insulin Aspart, Recombinant 100 u/ml 10 ml vial SC SCH ×4 (07:35→18:08)
[2018-08-19] MEDS: Lactobacillus Acidophilus 500 MU Cap PEG SCH ×2 (10:15→22:22)
[2018-08-19] MEDS: Vitamins A & D Oint UD Foilpak TOP SCH ×2 (10:15→18:16)
[2018-08-19] MEDS: Propranolol 5 mg Tab PEG SCH ×3 (10:15→18:16)
[2018-08-19] MEDS: Multiple Vitamins Tab PEG SCH (10:15)
[2018-08-19] MEDS: Bacitracin 500 Units/gm Oint Foilpak UD TOP SCH ×2 (10:16→18:18)
[2018-08-19] MEDS: (Lantus) Insulin Glargine, Recombinant SC SCH ×2 (10:16→22:23)
--- NOTE | 2018-08-19 10:52 | RAD ---
Chest x-ray single frontal view History: Abnormal lung sounds. COMPARISON: 08/18/2018 FINDINGS: Tracheostomy tube in place. Mild venous congestion. Right hilar prominence. Patchy increased markings at both lung bases. Nodular density at the left lung base. Aortic atherosclerotic calcification at the aortic knob. Mild cardiomegaly. Degenerative changes in the spine and shoulders. Impression: Tracheostomy tube in place. Mild venous congestion. Right hilar prominence. Patchy increased markings at both lung bases. Nodular density at the left lung base. Aortic atherosclerotic calcification at the aortic knob. Mild cardiomegaly.
--- NOTE | 2018-08-19 13:47 | CP.PCM.PN ---
<Óscar Saldana - Last Filed: 08/19/18 13:42> Subjective - Date & Time of Evaluation Date of Evaluation: 08/19/18 Time of Evaluation: 13:49 - Subjective Subjective: PGY3 Note for Dr. Leahy Patient seen and examined at bedside this AM; patient continues to be non- verbal; somewhat less agitated today; unable to obtain ROS 2/2 to condition. Objective - Vital Signs/Intake and Output Vital Signs (last 24 hours): Temp Pulse Resp BP Pulse Ox 98.6 F 87 23 121/67 100 08/19/18 12:00 08/19/18 12:00 08/19/18 12:00 08/19/18 12:00 08/19/18 12:00 Intake and Output: 08/19/18 08/19/18 06:59 18:59 Intake Total 330 Output Total 1 Balance 329 - Medications Medications: Current Medications Acetaminophen (Tylenol 650mg/20.3ml Solution Ud) 650 mg PEG Q6 PRN Last Admin: 08/18/18 02:10 Dose: 650 mg Acetylcysteine (Acetylcysteine 20%) 4 ml INH RQ6 MANOLO Last Admin: 08/19/18 08:27 Dose: 4 ml Albuterol/Ipratropium (Duoneb 3 Mg/0.5 Mg (3 Ml) Ud) 3 ml INH RQ6 MANOLO Last Admin: 08/19/18 08:27 Dose: 3 ml Ascorbic Acid (Vitamin C 500 Mg Tab) 1,000 mg NG DAILY [facility] Last Admin: 08/19/18 10:15 Dose: 1,000 mg Bacitracin (Bacitracin) 1 ea TOP BID [facility] Last Admin: 08/19/18 10:16 Dose: 1 ea Diphenhydramine HCl (Benadryl) 50 mg PEG HS [facility] Last Admin: 08/18/18 21:09 Dose: 50 mg Ergocalciferol (Drisdol 50,000 Intl Units Cap) 1 cap GT Q7D [facility]O Stop: 10/06/18 19:16 Last Admin: 08/18/18 23:34 Dose: 1 cap Heparin Sodium/Sodium Chloride (Heparin 74682 Units/250ml 1/2 Normal Saline) 25,000 units in 250 mls @ 5.672 mls/hr IV .Q24H PRN; Protocol PRN Reason: ADJUST RATE PER PROTOCOL Insulin Aspart (Novolog) 0 unit SC Q6 [facility]; Protocol Last Admin: 08/19/18 12:01 Dose: Not Given Insulin Glargine (Lantus) 15 unit SC Q12 [facility] Last Admin: 08/19/18 10:16 Dose: 15 u Lactobacillus Acidophilus (Bacid Acidophilus) 1 cap PEG Q12 [facility] Last Admin: 08/19/18 10:15 Dose: 1 cap Linezolid (Zyvox) 600 mg PO BID [facility]; Protocol Last Admin: 08/19/18 10:15 Dose: 600 mg Methimazole (Tapazole) 20 mg PO Q8 [facility] Last Admin: 08/19/18 05:25 Dose: 20 mg Multivitamins (Hexavitamin) 1 tab PEG DAILY [facility] Last Admin: 08/19/18 10:15 Dose: 1 tab Pantoprazole Sodium (Protonix Inj) 40 mg IVP Q12H [facility] Last Admin: 08/19/18 11:53 Dose: 40 mg Propranolol HCl (Inderal) 5 mg PEG TID [facility] Last Admin: 08/19/18 10:15 Dose: 5 mg Rosuvastatin Calcium (Crestor) 5 mg PO HS [facility] Last Admin: 08/18/18 21:06 Dose: 5 mg Vitamin A (Vitamin A & D Oint Ud Foilpak) 1 ea TOP BID [facility] Last Admin: 08/19/18 10:15 Dose: 1 ea Zolpidem Tartrate (Ambien) 5 mg PEG HS [facility] Last Admin: 08/18/18 21:06 Dose: 5 mg - Labs Labs: 08/19/18 06:19 08/19/18 06:19 PT 17.7 SECONDS (9.7-12.2) H 07/28/18 06:19 INR 1.6 07/28/18 06:19 APTT 52 SECONDS (21-34) H 07/31/18 05:56 - Constitutional Appears: Non-toxic, Cachectic, Chronically Ill (patient is calm, on trach vent ) - Eye Exam Eye Exam: absent: EOMI, Scleral icterus Pupil Exam: Unequal - ENT Exam ENT Exam: Mucous Membranes Moist - Neck Exam Neck Exam: Full ROM. absent: Lymphadenopathy - Respiratory Exam Respiratory Exam: Wheezes. absent: Clear to Ausculation Bilateral, Rales, Rhonchi - Cardiovascular Exam Cardiovascular Exam: REGULAR RHYTHM, +S1, +S2, Murmur - GI/Abdominal Exam GI & Abdominal Exam: Soft, Normal Bowel Sounds. absent: Tenderness - Extremities Exam Extremities Exam: absent: Calf Tenderness - Back Exam Back Exam: absent: CVA tenderness (L), CVA tenderness (R) - Neurological Exam Neurological Exam: Awake. absent: Alert, CN II-XII Intact, Normal Gait, Or iented x3 Additional comments: GCS 9T - Psychiatric Exam Additional comments: unable to assess - Skin Skin Exam: Warm Assessment and Plan - Assessment and Plan (Free Text) Assessment: Septic Shock 2/2 to PNA; resolved Pneumonia Urinary Tract Infection * Infectious Disease (Dr. Brock) on case-->help appreciated * MRSA not detected * Antibiotics * off antibiotics currently * Treated for pneumonia and uti during hospitalization * Patient had low grade fever at 100.8F * Recultured: UCx Gram +cocci * BCx negative x1 * CXR 08/12: atelectasis/infiltrate in L lung base, atelectasis in R mid lung * CBC dropped overnight 9.4 -> 7.7 * Eliquis d/c'd - Per Dr. Francisco, Eliquis must remain held at this time * STAT Repeat CBC 8.1. Heme occult negative. * S/p 1 unit PRBCs overnight. HgB 9.2 * Likely 2/2 continued heavy vaginal bleeding Agitation - Trazodone discontinued - Seroquel discontinued - New Meds: - --Benadryl 50 mg PEG HS - --Ambien 10 mg PEG HS - --> attempting to re-calibrate patient's circadian rhythm, as she has continued to be up during the night and agitated and sedated during the day. - Avoid Haldol or Benzos for agitation 2) Acute Respiratory Failure;patient now unable to be weaned from Vent to trach collar Pulmonary Edema Bilateral Pleural Effusion and Consolidations Likely Secondary to Aspirat ion Pneumonia Anoxic Encephalopagty Assessment/Plan * On trach collar trial; patient continues to fail daily weaning * Patient had two code blues (07/10; 07/20) during hospitalizations * CXR 08/12: atelectasis/infiltrate in L lung base, atelectasis in R mid lung * Patient remains on vent - having difficulty weaning. * 667 mg phoslo given once * Repeat CXR demonstrates worsening pulmonary congestion * --20 Lasix IVP given once 3) Anoxic Encephalopathy Ventricular Tachycardia NSTEMI Apical Thrombus LLE DVT Assessment/Plan * Code Blue 07/10: SVT==>VT required amiodarone, magnesium, one shock delivered * Code Blue 07/20: vtach s/p amiodarone, fluid, calcium gluconate, required compressions and shock * Cardiology Dr Francisco on case help appreciated * No cath needed. * Medical management * Echocardiogram (07/07/18): left ventricle systolic function is borderline, ejection fraction is 45-50%, no aortic regurgitation is present, mitral regurgitation is mild. Mild tricuspid regurgitation. mild pulmonary hypertension, mild pulmonic valvular regurgitation * Contrast Echo: Large apical hypokinesis a large 30 x 20 mm soft tissue apical sessile mass suggestive of thrombus overall fraction 40%. Obtain a HUBERT or/consider stress card myopathy if coronary disease is excluded further findings per report * Monitor electrolytes Via Peg * Eliquis 5 mg PO BID; held currently 2/2 to dysfunctional uterine bleeding * Aspirin 81 mg PO 1x/day * Propranolol 5mg PO TID restart 08/08/18 * Crestor 2.5 mg PO HS -08/19; started patient on heparin drip; will monitor CBC and vitals for signs of acute loss of blood -patient has dysfunctional uterine bleeding as a source for bleed; patient likely needs hysterectomy -patient has coagulapathy; may also benefit from IVC filter 4) Urinary Tract Infection; resolved Assessment/Plan * Infectious disease on board help appreciated * UTI treated during hospitalization * UCx Gram +cocci upon reculture 5) Diabetes-->chronic Assessment/Plan * HgBA1c: 7.8 * Hypoglycemic protocol * Lantus 15 units subcutaneous at bedtime Q12 6) Acute on Chronic Renal Failure Assessment/Plan * Nephrology (Dr. Hyde) on board--> help appreciated * Patient will likely not need dialysis * Renal function continues to improve * will monitor 7) Hyperthyroidism? Low TSH, and Free T4 Thyroid Storm Assessment/Plan * Note Thyroid studies taken before amiodarone was given (please advised this is not amiodarone induced her levels were abnormal prior) * Patient does not have prior thyroid history * Endocrinology (Dr. 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 She will need outpatient FNA Bx of the complex Left Lobe cyst (please see full report) * Methimazole 20mg PO TID * Propranolol 5 mg PO TID was discontinued 08/03/18; restart 08/08/18 * Monitor LFTs 8) Anemia Likely Secondary to Chronic Diseases and dysfunctional uterine bleeding Assessment/Plan * Iron normal, TIBC low, Iron Saturation normal, Ferritin normal * Stool occult blood negative * B12 normal * Folate Normal * Transfused 1 unit PRBC 07/22/18 * Patient is on Heparin drip 08/19; will monitor hgb * consider re-consulting OBGYN for hysteretomy; patient no longer of child bearing age and uterus is source of bleeding 9) Transminitis-->improving * Likely secondary to Sepsis and Amiodarone (which was discontinued) * Hepatitis serology negative * will follow 10) Vitamin D deficiency Assessment plan * 50,000 international units once a week for at least 8-12 weeks started on 07/11/18 11) Thrombocytopenia-->resolved Assessment plan * Sepsis, vs Methimazole? * Fibrinogen elevated * HIT and RUSTY both negative for HIT * Currently normalized 12) 13 mm Left Adrenal Nodule * As seen on CT Chest 07/16/18 * Will need outpatient follow up for cross sectional imaging for better characterization 13) Hypernatremia-->resolved * Free water 250 ml 3x/day via OGT * Na now normal 14) LLE DVT * Eliquis 5 mg PO BID restarted on 07/31/18; held * Acute thrombosis of the left common femoral and femoral veins with severe reduction of the venous return on 07/18/18 venous doppler * patient on heparin drip 08/19; will monitor CBC and vitals 15) Deconditioning * Patient needs continued PT/OT * PT worked with patient on 07/12, unable to wake patient today, will attempt again tomorrow. 16) Prophylactic measure * Protonix 40mg PO BID * Lactobacillus 1 cap PO BID * MVI 1x/day * Vitamin C 1,000 NG 1x/day * Trach and Peg * Follow peg intake * SCD on Right and contraindicated on Left due to DVT * Peg feedings * PICC Line 07/31/18 * Note: speak to patient in alexis to assess neurologic status-->she does follow Disposition: Patient does not have insurance: please f/u with social/case management to start insurance process for potential LTAC/rehab. She will need significant rehab to regain muscle and strength. Patient has trach, has been on vent. Case discussed and seen with Dr. Armond Saldana PGY3 <Saira Leahy V - Last Filed: 08/19/18 17:04> Objective - Vital Signs/Intake and Output Vital Signs (last 24 hours): Temp Pulse Resp BP Pulse Ox 99.2 F 86 20 114/62 100 08/19/18 15:51 08/19/18 15:51 08/19/18 15:51 08/19/18 15:51 08/19/18 15:51 Intake and Output: 08/19/18 08/19/18 06:59 18:59 Intake Total 330 371.2 Output Total 1 Balance 329 371.2 - Medications Medications: Current Medications Acetaminophen (Tylenol 650mg/20.3ml Solution Ud) 650 mg PEG Q6 PRN Last Admin: 08/18/18 02:10 Dose: 650 mg Acetylcysteine (Acetylcysteine 20%) 4 ml INH RQ6 [facility] Last Admin: 08/19/18 13:42 Dose: 4 ml Albuterol/Ipratropium (Duoneb 3 Mg/0.5 Mg (3 Ml) Ud) 3 ml INH RQ6 [facility] Last Admin: 08/19/18 13:42 Dose: 3 ml Ascorbic Acid (Vitamin C 500 Mg Tab) 1,000 mg NG DAILY [facility] Last Admin: 08/19/18 10:15 Dose: 1,000 mg Bacitracin (Bacitracin) 1 ea TOP BID [facility] Last Admin: 08/19/18 10:16 Dose: 1 ea Diphenhydramine HCl (Benadryl) 50 mg PEG HS [facility] Last Admin: 08/18/18 21:09 Dose: 50 mg Ergocalciferol (Drisdol 50,000 Intl Units Cap) 1 cap GT Q7D [facility] Stop: 10/06/18 19:16 Last Admin: 08/18/18 23:34 Dose: 1 cap Heparin Sodium/Sodium Chloride (Heparin 34647 Units/250ml 1/2 Normal Saline) 25,000 units in 250 mls @ 5.672 mls/hr IV .Q24H PRN; Protocol PRN Reason: ADJUST RATE PER PROTOCOL Last Admin: 08/19/18 14:06 Dose: 12 units/kg/hr, 5.672 mls/hr Insulin Aspart (Novolog) 0 unit SC Q6 [facility]; Protocol Last Admin: 08/19/18 12:01 Dose: Not Given Insulin Glargine (Lantus) 15 unit SC Q12 [facility] Last Admin: 08/19/18 10:16 Dose: 15 u Lactobacillus Acidophilus (Bacid Acidophilus) 1 cap PEG Q12 [facility] Last Admin: 08/19/18 10:15 Dose: 1 cap Linezolid (Zyvox) 600 mg PO BID [facility]; Protocol Last Admin: 08/19/18 10:15 Dose: 600 mg Methimazole (Tapazole) 20 mg PO Q8 [facility] Last Admin: 08/19/18 14:05 Dose: 20 mg Multivitamins (Hexavitamin) 1 tab PEG DAILY [facility] Last Admin: 08/19/18 10:15 Dose: 1 tab Pantoprazole Sodium (Protonix Inj) 40 mg IVP Q12H [facility] Last Admin: 08/19/18 11:53 Dose: 40 mg Propranolol HCl (Inderal) 5 mg PEG TID [facility] Last Admin: 08/19/18 14:05 Dose: 5 mg Rosuvastatin Calcium (Crestor) 5 mg PO HS [facility] Last Admin: 08/18/18 21:06 Dose: 5 mg Vitamin A (Vitamin A & D Oint Ud Foilpak) 1 ea TOP BID [facility] Last Admin: 08/19/18 10:15 Dose: 1 ea Zolpidem Tartrate (Ambien) 5 mg PEG HS [facility] Last Admin: 08/18/18 21:06 Dose: 5 mg - Labs Labs: 08/19/18 06:19 08/19/18 06:19 PT 17.7 SECONDS (9.7-12.2) H 07/28/18 06:19 INR 1.6 07/28/18 06:19 APTT 52 SECONDS (21-34) H 07/31/18 05:56 Assessment and Plan (1) Septic shock Status: Acute (2) Acute respiratory failure Status: Acute (3) Urinary tract infection Status: Acute (4) Acute renal failure Status: Acute (5) Aspiration pneumonia Status: Acute (6) Diabetes mellitus Status: Chronic (7) Ventricular arrhythmia Status: Acute (8) Hyperthyroidism Status: Acute (9) Anemia Status: Acute (10) Prophylactic measure Status: Acute Attending/Attestation - Attestation I have personally seen and examined this patient.: Yes I have fully participated in the care of the patient.: Yes I have reviewed all pertinent clinical information, including history, physical exam and plan: Yes Notes (Text): Patient seen, examined, and case discussed with day-time resident. Patient seen this afternoon with at bedside. Discussed with RN, Ericka, patient had been up all night in spite of Benadryl and Ambien. Patient is calm at bedside with , does not appear agitated. I spoke with the , he is aware patient has had both heart clot and clot in the leg. He is aware that the bleeding is severe when patient is having her periods and has required blood transfusion. I had spoken with cardiology yesterday in light of heart thrombus recommended for dvt ppx and aspirin given bleeding risk. Note patient has DVT which would also require 3 months of anticoagulation at least. I did approach him regarding IVC filter to protect patient from risk of PE given her DVT noting it will provide some protection not 100 percent protection. I also asked him regarding hysterectomy given source of bleeding appears to be dysfunctional uterine bleeding; but is quite against that idea when I brought it up. He would like to think more. I have placed patient on heparin drip. hemoglobin stable in 9s which is where she has been trending during hospitalization. We increase Ambien to 10mg total to see if that helps to reset sleep wake cycle for tonight. Patient appears to be very active at night but then during the day she is tired to work with physical therapy or attempt trial. We have repeat venous doppler prelim showing clot has dissolved awaiting off icial read. Awaiting official read on echocardiogram. 1) Septic Shock secondary to Pneumonia and Urinary Tract Infection Assessment/Plan * Infectious Disease (Dr. Brock) on case-->help appreciated * Tmax 101F (08/07/18); last fever, no elevated white count * Patient is off pressors. Completed IV abx for aspiration pneumonia and on PO abx for latest urinary tract infection * 08/12/18 Blood cultur: no growth after 5 days X2 * 08/12/18 Urine Culture: VRE * 08/14/18: Urine culture Repeat No growth * patient is on Zyvox 600mg PO BID (started on 08/14/18): ID has recommended for 7 days total * Chest xray (08/18/18): left sided PICC likely terminates at the proximal right atrium. Tracheostomy tube. Mild pulmonary venous congestion. Small left pleural effusion. 2) Anoxic Encephalopathy Assessment/Plan * Code Blue 07/10 and 07/20 * Patient prior knowledge of 5 languages per but does not follow commands; I did speak with the and as for him to speak with her and does not follow with him. Later with his nurse, Martin Lelelisetteminerva patient note ably more agitated when she is having frequent bms or needs to be washed and is unable to communicate her needs because of limited of language. * I did speak with Dr. Pham today in regards to reset patient's sleep wake cycle--> her pattern tends to be she is agitated at night when her is not present (her reliable social cue) receives benzo/haldol/seroquel and becomes very lethargic in the morning which presents rehab from working with her. We have planned for Benadryl 50mg via peg and ambien 5mg POqHS to reset her sleep wake cycle. We will increase benadryl dose or add Ambien 5mg POqHS if does not hold patient at night. Note Patient is connected to vent. She is unable to get off vent keeps failing trial for the past 3 days. She is unable to get the MRI because the vent does not fit in the MRI. * CT head: no acute intracranial pathology. Age-related changes. no significant interval change. 3) Acute Respiratory Failure Pulmonary Edema Assessment/Plan * Patient underwent tracheostomy 07/24/18 * Patient had tolerated trach collars last weekend thru Tuesday; however she has been on vent for the past three days. When I spoke with the Rn, patient is failed on weaning off vent with Respiratory therapy * Pulmonary (Dr. Lozada) on board-->assisting with weaning from trach on vent to trach collar * Duonebs 3ml Inh Q6H * Add Mucomyst to reduce secretions * Chest xray (08/18/18): left sided PICC likely terminates at the proximal right atrium. Tracheostomy tube. Mild pulmonary venous congestion. Small left pleural effusion-->given dose of Lasix 20mg IV X1 * Chest xray (08/19/18) appears improved compared to yesterday 4) Ventricular Tachycardia NSTEMI Apical Thrombus LLE DVT Assessment/Plan * Code Blue 07/10: SVT==>VT required amiodarone, magnesium, one shock delivered * Code Blue 07/20: vtach s/p amiodarone, fluid, calcium gluconate, required compressions and shock * Cardiology Dr Francisco on case help appreciated * No cath needed. * Medical management * No chemical anticoagulation in light of bleeding episodes (patient has dysfunction uterine bleeding required blood transfusions; Ob has been consulted earlier in the hospitalization to inpatient workup)-->recommending heparin 5000 unit subq8 (DVT ppx dose) and aspirin 81mg PO daily; likely thrombus is organized a month of anticoagulation; risk is due to bleeding against stroke * Propranolol 5mg PO TID (hold SBP<100 and HR<60) * Eliquis d/c bleeding and anemia-->dvt ppx and aspirin * pending official report of repeat echo 4) Urinary Tract Infection Assessment/Plan * Zyvox 600mg PO BID for 7 days since Tuesday08/14/18 per ID for VRE * on Contact isolation 5) Diabetes-->chronic Assessment/Plan * HgBA1c: 7.8 * Hypoglycemic protocol * Lantus 15 units subcutaneous at bedtime Q12 * Accuchecks Q6H * Aspirin 81mg PO daily * Crestor 5mg POqHS 6) Acute on Chronic Renal Failure Assessment/Plan * Nephrology (Dr. Hyde) on board--> help appreciated * Patient will likely not need dialysis * mildly improving 7) Hyperthyroidism? Low TSH, and Free T4 Thyroid Storm Assessment/Plan * Note Thyroid studies taken before amiodarone was given (please advised this is not amiodarone induced her levels were abnormal prior) * Patient does not have prior thyroid history * Endocrinology (Dr. 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 She will need outpatient FNA Bx of the complex Left Lobe cyst (please see full report) * Methimazole 20mg PO TID * Propranolol 5 mg PO TID * Monitor LFTs 8) Anemia Likely Secondary to Chronic Diseases Assessment/Plan * Iron normal, TIBC low, Iron Saturation normal, Ferritin normal * Stool occult blood negative * B12 normal * Folate Normal * Transfused 1 unit PRBC 07/22/18, 2 unit of PRBC 08/13/18 1 unit on 08/17/18 * Patient has been seen by OB Hospitalist; no contraindication to anticoagulation * Case discussed with community relations police lieutenant recommending against eliquis in light of bleeding; recommending for DVT ppx and aspirin * Start heparin drip to cover for DVT and thrombus * Discussed with for possible IVC filter-->he would like to think about it, he is against hysterectomy * Repeat venous doppler pending read 9) Transminitis-->improving * Likely secondary to Sepsis and Amiodarone (which was discontinued) * Hepatitis serology negative * Normalized 10) Vitamin D deficiency Assessment plan * 50,000 international units once a week (3 doses given so far) * Restart Vitamin D 50,000 IU once a week for 9 weeks (on 08/18/18) 11) Thrombocytopenia-->resolved Assessment plan * HIT/RUSTY were negative 12) 13 mm Left Adrenal Nodule * As seen on CT Chest 07/16/18 * Will need outpatient follow up for cross sectional imaging for better characterization 13) Hypernatremia-->resolved * Free water 250 ml 3x/day via OGT * Na now normal 14) LLE DVT * Eliquis 5 mg PO BID d/c 08/17 * Acute thrombosis of the left common femoral and femoral veins with severe reduction of the venous return on 07/18/18 venous doppler * Patient had completed one month on Eliquis; however she continues to have dysfunction uterine bleeding; cardiology is recommending against eliquis for thrombus given bleeding risk * Will repeat doppler to see if DVT has resolved; may need to consult vascular surgery for IVC filter * would like to think about this * On heparin drip for now 15) Deconditioning * Patient needs continued PT/OT * I did speak with Dr. Pham 08/18 in regards to reset patient's sleep wake cycle--> her pattern tends to be she is agitated at night when her is not present (her reliable social cue) receives benzo/haldol/seroquel and becomes very lethargic in the morning which presents rehab from working with her. We have planned for Benadryl 50mg via peg and ambien 5mg POqHS to reset her sleep wake cycle. We will increase benadryl dose or add Ambien 5mg POqHS if does not hold patient at night. Note Patient is connected to vent. She is unable to get off vent keeps failing trial for the past 3 days. She is unable to get the MRI because the vent does not fit in the MRI. 16) Prophylactic measure * Protonix 40mg PO BID * Lactobacillus 1 cap PO BID * MVI 1x/day * Vitamin C 1,000 NG 1x/day * s/p Trach and Peg * SCD on Right and contraindicated on Left due to DVT * Peg feedings * Change to Pulmcar 40cc/hr * patient had frequent BMs on prior formula; no diarrhea; we have spoken with dietary to change it * PICC Line 07/31/18 * Note: speak to patient in alexis to assess neurologic status-->she does follow sometimes * Start Benadryl 50mg GT at night and Ambien 5mg POqHS to reset circadian rhythm so patient tries to sleep at night and remain awake during the day to work with PT/OT * Heparin drip Disposition: * we are going to reattempt to reset patient's sleep wake cycle. patient is reliant on her as her cue to relieve delirium. Patient is started on Benadryl and Ambien tonight. We will increase Benadryl or Ativan. Recommended to either increase benadryl or increase ambien dose. Do not given benzo/haldol/sequerol-->attempt to increase benadryl dose first. * Eliquis d/c given bleeding-->cardio recommended for dvt ppx and aspirin * Start heparin drip--> to think about IVC filter. he is against hysterectomy. * Repeat venous doppler to monitor Left DVT; may need to consult vascular surgery for IVC filter * Zyvox for total of 7 days
[2018-08-19] MEDS: Heparin25000 units/250ml 1/2NS 25,000 UNITS/250 ML BAG IV PRN (14:06)
[2018-08-20] MEDS ORDERED: DiphenhydrAMINE 50 mg/ml Inj IVP PRN (00:01)
[2018-08-20] MEDS: (Novolog) Insulin Aspart, Recombinant 100 u/ml 10 ml vial SC SCH ×4 (01:03→18:08)
[2018-08-20] MEDS: Albuterol-Ipratrop 3 mg / 0.5 (3 ml) UD INH SCH ×4 (01:52→19:57)
[2018-08-20] MEDS: Acetylcysteine 20% Inhal Soln (4ml) INH SCH ×4 (01:52→19:57)
[2018-08-20 06:02] LABS: BASO # 0.1 K/uL (0.0-0.2); BASO % 0.6 % (0.0-2.0); EOS # 0.2 K/uL (0.0-0.7); EOS % 1.7 % (0.0-4.0); HEMOGLOBIN 9.4 g/dL (11.0-16.0); LYMPH # 1.5 K/uL (1.0-4.3); LYMPH % 14.3 % (20.0-40.0); MEAN CELL VOLUME 89.2 fL (81.0-99.0); MEAN CORPUSCULAR HEMOGLOBIN 30.8 pg (27.0-31.0); MEAN CORPUSCULAR HGB CONC 34.5 g/dL (33.0-37.0); MEAN PLATELET VOLUME 7.8 fL (7.2-11.7); MONO # 0.5 K/uL (0.0-0.8); NEUT # 8.1 K/uL (1.8-7.0); NEUT % 78.4 % (50.0-75.0); NRBC % 0.1 % (0.0-2.0); RBC 3.04 Mil/uL (3.80-5.20); RED CELL DISTRIBUTION WIDTH 15.7 % (11.5-14.5); WHITE BLOOD COUNT 10.4 K/uL (4.8-10.8)
[2018-08-20 06:20] LABS: ALB/GLOB RATIO 0.8 (1.0-2.1); ALBUMIN 2.8 g/dL (3.5-5.0); CALCIUM 8.4 mg/dl (8.6-10.4)
[2018-08-20] MEDS: Multiple Vitamins Tab PEG SCH (10:16)
[2018-08-20] MEDS: Lactobacillus Acidophilus 500 MU Cap PEG SCH ×2 (10:16→21:26)
[2018-08-20] MEDS: Propranolol 5 mg Tab PEG SCH ×3 (10:16→18:08)
[2018-08-20] MEDS: (Lantus) Insulin Glargine, Recombinant SC SCH ×2 (10:17→21:27)
[2018-08-20] MEDS: Vitamins A & D Oint UD Foilpak TOP SCH ×2 (10:18→18:10)
[2018-08-20] MEDS: Bacitracin 500 Units/gm Oint Foilpak UD TOP SCH ×2 (10:19→18:10)
[2018-08-20] MEDS: Heparin25000 units/250ml 1/2NS 25,000 UNITS/250 ML BAG IV PRN (10:32)
--- NOTE | 2018-08-20 14:54 | CP.PCM.PN ---
<Óscar Saldana - Last Filed: 08/20/18 14:48> Subjective - Date & Time of Evaluation Date of Evaluation: 08/20/18 Time of Evaluation: 14:58 - Subjective Subjective: PGY3 Note for Dr. Zamudio Patient seen and examined at bedside this AM; patient is unable to participate in the ROS 2/2 to clinical condition; making purposeless movements; somewhat less agitated today as night team endorsed she slept better throughout the night. Objective - Vital Signs/Intake and Output Vital Signs (last 24 hours): Temp Pulse Resp BP Pulse Ox 99.4 F 73 18 105/62 100 08/20/18 04:00 08/20/18 04:00 08/20/18 04:00 08/20/18 04:00 08/20/18 04:00 Intake and Output: 08/20/18 08/20/18 06:59 18:59 Intake Total 547.2 295.6 Balance 547.2 295.6 - Medications Medications: Current Medications Acetaminophen (Tylenol 650mg/20.3ml Solution Ud) 650 mg PEG Q6 PRN Last Admin: 08/18/18 02:10 Dose: 650 mg Acetylcysteine (Acetylcysteine 20%) 4 ml INH RQ6 [facility] Last Admin: 08/20/18 14:20 Dose: 4 ml Albuterol/Ipratropium (Duoneb 3 Mg/0.5 Mg (3 Ml) Ud) 3 ml INH RQ6 [facility] Last Admin: 08/20/18 14:20 Dose: 3 ml Ascorbic Acid (Vitamin C 500 Mg Tab) 1,000 mg NG DAILY [facility] Last Admin: 08/20/18 10:16 Dose: 1,000 mg Bacitracin (Bacitracin) 1 ea TOP BID [facility] Last Admin: 08/20/18 10:19 Dose: 1 ea Diphenhydramine HCl (Benadryl) 50 mg PEG HS [facility] Last Admin: 08/19/18 22:26 Dose: 50 mg Diphenhydramine HCl (Benadryl) 25 mg IVP ONCE PRN PRN Reason: Agitation Last Admin: 08/20/18 10:17 Dose: 25 mg Ergocalciferol (Drisdol 50,000 Intl Units Cap) 1 cap GT Q7D [facility] Stop: 10/06/18 19:16 Last Admin: 08/18/18 23:34 Dose: 1 cap Heparin Sodium/Sodium Chloride (Heparin 03971 Units/250ml 1/2 Normal Saline) 25,000 units in 250 mls @ 5.672 mls/hr IV .Q24H PRN; Protocol PRN Reason: ADJUST RATE PER PROTOCOL Last Admin: 08/20/18 10:32 Dose: 12 units/kg/hr, 5.672 mls/hr Insulin Aspart (Novolog) 0 unit SC Q6 [facility]; Protocol Last Admin: 08/20/18 12:30 Dose: Not Given Insulin Glargine (Lantus) 15 unit SC Q12 [facility] Last Admin: 08/20/18 10:17 Dose: 15 units Lactobacillus Acidophilus (Bacid Acidophilus) 1 cap PEG Q12 [facility] Last Admin: 08/20/18 10:16 Dose: 1 cap Linezolid (Zyvox) 600 mg PO BID [facility]; Protocol Stop: 08/21/18 18:01 Last Admin: 08/20/18 10:16 Dose: 600 mg Methimazole (Tapazole) 20 mg PO Q8 [facility] Last Admin: 08/20/18 06:12 Dose: 20 mg Multivitamins (Hexavitamin) 1 tab PEG DAILY [facility] Last Admin: 08/20/18 10:16 Dose: 1 tab Pantoprazole Sodium (Protonix Inj) 40 mg IVP Q12H [facility] Last Admin: 08/20/18 12:05 Dose: 40 mg Propranolol HCl (Inderal) 5 mg PEG TID [facility] Last Admin: 08/20/18 14:13 Dose: Not Given Rosuvastatin Calcium (Crestor) 5 mg PO HS [facility] Last Admin: 08/19/18 22:23 Dose: 5 mg Vitamin A (Vitamin A & D Oint Ud Foilpak) 1 ea TOP BID [facility] Last Admin: 08/20/18 10:18 Dose: 1 ea Zolpidem Tartrate (Ambien) 5 mg PEG HS [facility] Last Admin: 08/19/18 22:22 Dose: 5 mg Zolpidem Tartrate (Ambien) 5 mg PO HS PRN PRN Reason: Insomnia - Labs Labs: 08/20/18 05:51 08/20/18 05:51 PT 17.7 SECONDS (9.7-12.2) H 07/28/18 06:19 INR 1.6 07/28/18 06:19 APTT 40 SECONDS (21-34) H D 08/20/18 05:51 - Constitutional Appears: Cachectic, Chronically Ill - Eye Exam Eye Exam: absent: EOMI, Normal appearance, PERRL, Scleral icterus Additional comments: non purposeful movements - ENT Exam ENT Exam: Mucous Membranes Moist - Neck Exam Neck Exam: Full ROM. absent: Lymphadenopathy - Respiratory Exam Respiratory Exam: Clear to Ausculation Bilateral - Cardiovascular Exam Cardiovascular Exam: REGULAR RHYTHM - GI/Abdominal Exam GI & Abdominal Exam: Soft, Normal Bowel Sounds (PEG site clean dry and intact ) - Extremities Exam Extremities Exam: Full ROM. absent: Calf Tenderness, Pedal Edema - Back Exam Back Exam: NORMAL INSPECTION. absent: CVA tenderness (L), CVA tenderness (R) - Neurological Exam Neurological Exam: Awake. absent: Alert, CN II-XII Intact, Normal Gait, Oriented x3 Additional comments: GCS 9T; patient is on trach vent - Skin Skin Exam: Warm Assessment and Plan - Assessment and Plan (Free Text) Assessment: 52yo F originally admitted to the ICU for Septic shock 2/2 to PNA/UTI worsened by embolic stroke, cardiac arrest, and anoxic brain injury 1) Septic Shock secondary to Pneumonia and Urinary Tract Infection; resolved Assessment/Plan * Infectious Disease (Dr. Brock) on case-->help appreciated * Tmax 101F (08/07/18); last fever, no elevated white count * Patient is off pressors. Completed IV abx for aspiration pneumonia and on PO abx for latest urinary tract infection * 08/12/18 Blood cultur: no growth after 5 days X2 * 08/12/18 Urine Culture: VRE * 08/14/18: Urine culture Repeat No growth * patient is on Zyvox 600mg PO BID (started on 08/14/18): ID has recommended for 7 days total. to finish on 08/21/18 * Chest xray (08/18/18): left sided PICC likely terminates at the proximal right atrium. Tracheostomy tube. Mild pulmonary venous congestion. Small left pleural effusion. 2) Anoxic Encephalopathy Assessment/Plan * Code Blue 07/10 and 07/20 * Patient prior knowledge of 5 languages per but does not follow commands; I did speak with the and as for him to speak with her and does not follow with him. Later with his nurse, Martin Rider patient noteably more agitated when she is having frequent bms or needs to be washed and is unable to communicate her needs because of limited of language. * I did speak with Dr. Pham today in regards to reset patient's sleep wake cycle--> her pattern tends to be she is agitated at night when her is not present (her reliable social cue) receives benzo/haldol/seroquel and becomes very lethargic in the morning which presents rehab from working with her. We have planned for Benadryl 50mg via peg and ambien 5mg POqHS to reset her sleep wake cycle. We will increase benadryl dose or add Ambien 5mg POqHS if does not hold patient at night. Note Patient is connected to vent. She is unable to get off vent keeps failing trial for the past 3 days. She is unable to get the MRI because the vent does not fit in the MRI. * CT head: no acute intracranial pathology. Age-related changes. no significant interval change. 3) Acute Respiratory Failure leading to chronic respiratory failure Pulmonary Edema Assessment/Plan * Patient underwent tracheostomy 07/24/18 * Patient had tolerated trach collars last weekend thru Tuesday; however she has been on vent for the past three days. When I spoke with the Rn, patient is failed on weaning off vent with Respiratory therapy * Pulmonary (Dr. Lozada) on board-->assisting with weaning from trach on vent to trach collar * Duonebs 3ml Inh Q6H * Add Mucomyst to reduce secretions * Chest xray (08/18/18): left sided PICC likely terminates at the proximal right atrium. Tracheostomy tube. Mild pulmonary venous congestion. Small left pleur al effusion-->given dose of Lasix 20mg IV X1 * Chest xray (08/19/18) appears improved compared to yesterday patient continues to fail daily CPAP-->trach collar weaning 4) Ventricular Tachycardia NSTEMI Apical Thrombus LLE DVT Assessment/Plan * Code Blue 07/10: SVT==>VT required amiodarone, magnesium, one shock delivered * Code Blue 07/20: vtach s/p amiodarone, fluid, calcium gluconate, required compressions and shock * Cardiology Dr Francisco on case help appreciated * No cath needed. * Medical management * No chemical anticoagulation in light of bleeding episodes (patient has dysfunction uterine bleeding required blood transfusions; Ob has been consulted earlier in the hospitalization to inpatient workup)-->recommending heparin 5000 unit subq8 (DVT ppx dose) and aspirin 81mg PO daily; likely thrombus is organized a month of anticoagulation; risk is due to bleeding against stroke * Propranolol 5mg PO TID (hold SBP<100 and HR<60) * Eliquis d/c bleeding and anemia-->dvt ppx and aspirin * pending official report of repeat echo 4) Urinary Tract Infection Assessment/Plan * Zyvox 600mg PO BID for 7 days since Tuesday08/14/18 per ID for VRE to finish 08/21/18 * on Contact isolation 5) Diabetes-->chronic Assessment/Plan * HgBA1c: 7.8 * Hypoglycemic protocol * Lantus 15 units subcutaneous at bedtime Q12 * Accuchecks Q6H * Aspirin 81mg PO daily * Crestor 5mg POqHS 6) Acute on Chronic Renal Failure Assessment/Plan * Nephrology (Dr. Hyde) on board--> help appreciated * Patient will likely not need dialysis * mildly improving 7) Hyperthyroidism? Low TSH, and Free T4 Thyroid Storm Assessment/Plan * Note Thyroid studies taken before amiodarone was given (please advised this is not amiodarone induced her levels were abnormal prior) * Patient does not have prior thyroid history * Endocrinology (Dr. Gayle) on board help appreciated * Thyroid U/S 07/16/18: showed heterogenous thydroid with multiple nodules jayde aterally. She will need outpatient FNA Bx of the complex Left Lobe cyst (please see full report) * Methimazole 20mg PO TID * Propranolol 5 mg PO TID * Monitor LFTs 8) Anemia Likely Secondary to Chronic Diseases Assessment/Plan * Iron normal, TIBC low, Iron Saturation normal, Ferritin normal * Stool occult blood negative * B12 normal * Folate Normal * Transfused 1 unit PRBC 07/22/18, 2 unit of PRBC 08/13/18 1 unit on 08/17/18 * Patient has been seen by OB Hospitalist; no contraindication to anticoagulation * Case discussed with renewal specialist recommending against eliquis in light of bleeding; recommending for DVT ppx and aspirin * Start heparin drip to cover for DVT and thrombus * Discussed with for possible IVC filter-->he would like to think about it, he is against hysterectomy * Repeat venous doppler pending read 08/20: heparin drip was started yesterday 08/19; patients hemoglobin is unchanged today; will continue to monitor 9) Transminitis-->improving * Likely secondary to Sepsis and Amiodarone (which was discontinued) * Hepatitis serology negative * Normalized 10) Vitamin D deficiency Assessment plan * 50,000 international units once a week (3 doses given so far) * Restart Vitamin D 50,000 IU once a week for 9 weeks (on 08/18/18) 11) Thrombocytopenia-->resolved Assessment plan * HIT/RUSTY were negative 12) 13 mm Left Adrenal Nodule * As seen on CT Chest 07/16/18 * Will need outpatient follow up for cross sectional imaging for better characterization 13) Hypernatremia-->resolved * Free water 250 ml 3x/day via OGT * Na now normal 14) LLE DVT * Eliquis 5 mg PO BID d/c 08/17 * Acute thrombosis of the left common femoral and femoral veins with severe reduction of the venous return on 07/18/18 venous doppler * Patient had completed one month on Eliquis; however she continues to have dysfunction uterine bleeding; cardiology is recommending against eliquis for thrombus given bleeding risk * Will repeat doppler to see if DVT has resolved; may need to consult vascular surgery for IVC filter * would like to think about this * On heparin drip for now started 08/19/18, patient will need to be anticoagulated if hgb does not drop * will most likely need hysterectomy as is source of bleeding; patient is a very poor surgical candidate and is high risk for surgery 15)Dysfunctional Uterine bleeding -patient has thickened endometrial stripe and dysfunctional uterine bleeding -patient will ultimately need hysterectomy; however poor surgical candidate -re-consult OBGYN in the future; will monitor hgb 16) Deconditioning * Patient needs continued PT/OT * I did speak with Dr. Pham 08/18 in regards to reset patient's sleep wake cycle--> her pattern tends to be she is agitated at night when her is not present (her reliable social cue) receives benzo/haldol/seroquel and becomes very lethargic in the morning which presents rehab from working with her. We have planned for Benadryl 50mg via peg and ambien 5mg POqHS to reset her sleep wake cycle. We will increase benadryl dose or add Ambien 5mg POqHS if does not hold patient at night. Note Patient is connected to vent. She is unable to get off vent keeps failing trial for the past 3 days. She is unable to get the MRI because the vent does not fit in the MRI. 17) Prophylactic measure * Protonix 40mg PO BID * Lactobacillus 1 cap PO BID * MVI 1x/day * Vitamin C 1,000 NG 1x/day * s/p Trach and Peg * SCD on Right and contraindicated on Left due to DVT * Peg feedings * Change to Pulmcar 40cc/hr * patient had frequent BMs on prior formula; no diarrhea; we have spoken with dietary to change it * PICC Line 07/31/18 * Start Benadryl 50mg GT at night and Ambien 5mg POqHS to reset circadian rhythm so patient tries to sleep at night and remain awake during the day to work with PT/OT * Heparin drip Disposition: * we are going to reattempt to reset patient's sleep wake cycle. patient is reliant on her as her cue to relieve delirium. Patient is started on Benadryl and Ambien tonight. We will increase Benadryl or Ativan. Recommended to either increase benadryl or increase ambien dose. Do not given benzo/haldol/sequerol-->attempt to increase benadryl dose first. * Eliquis d/c given bleeding-->cardio recommended for dvt ppx and aspirin * Start heparin drip 08/19/18--> to think about IVC filter. Spoke to regarding hysterectomy and he is "for whatever will make my better". * Repeat venous doppler to monitor Left DVT; may need to consult vascular surgery for IVC filter in the future * Zyvox for total of 7 days, to end 08/21/18 Case discussed and seen with Dr. Lizz Saldana PGY3 <Don Zamudio - Last Filed: 08/20/18 19:02> Objective - Vital Signs/Intake and Output Vital Signs (last 24 hours): Temp Pulse Resp BP Pulse Ox 99.4 F 73 18 105/62 100 08/20/18 04:00 08/20/18 04:00 08/20/18 04:00 08/20/18 04:00 08/20/18 04:00 Intake and Output: 08/20/18 08/20/18 06:59 18:59 Intake Total 547.2 295.6 Balance 547.2 295.6 - Medications Medications: Current Medications Acetaminophen (Tylenol 650mg/20.3ml Solution Ud) 650 mg PEG Q6 PRN Last Admin: 08/18/18 02:10 Dose: 650 mg Acetylcysteine (Acetylcysteine 20%) 4 ml INH RQ6 [facility] Last Admin: 08/20/18 14:20 Dose: 4 ml Albuterol/Ipratropium (Duoneb 3 Mg/0.5 Mg (3 Ml) Ud) 3 ml INH RQ6 [facility] Last Admin: 08/20/18 14:20 Dose: 3 ml Ascorbic Acid (Vitamin C 500 Mg Tab) 1,000 mg NG DAILY [facility] Last Admin: 08/20/18 10:16 Dose: 1,000 mg Bacitracin (Bacitracin) 1 ea TOP BID [facility] Last Admin: 08/20/18 18:10 Dose: 1 ea Diphenhydramine HCl (Benadryl) 50 mg PEG HS [facility] Last Admin: 08/19/18 22:26 Dose: 50 mg Diphenhydramine HCl (Benadryl) 25 mg IVP ONCE PRN PRN Reason: Agitation Last Admin: 08/20/18 10:17 Dose: 25 mg Ergocalciferol (Drisdol 50,000 Intl Units Cap) 1 cap GT Q7D [facility] Stop: 10/06/18 19:16 Last Admin: 08/18/18 23:34 Dose: 1 cap Heparin Sodium/Sodium Chloride (Heparin 38864 Units/250ml 1/2 Normal Saline) 25,000 units in 250 mls @ 5.672 mls/hr IV .Q24H PRN; Protocol PRN Reason: ADJUST RATE PER PROTOCOL Last Admin: 08/20/18 10:32 Dose: 12 units/kg/hr, 5.672 mls/hr Insulin Aspart (Novolog) 0 unit SC Q6 [facility]; Protocol Last Admin: 08/20/18 18:08 Dose: Not Given Insulin Glargine (Lantus) 15 unit SC Q12 [facility] Last Admin: 08/20/18 10:17 Dose: 15 units Lactobacillus Acidophilus (Bacid Acidophilus) 1 cap PEG Q12 [facility] Last Admin: 08/20/18 10:16 Dose: 1 cap Linezolid (Zyvox) 600 mg PO BID [facility]; Protocol Stop: 08/21/18 18:01 Last Admin: 08/20/18 18:09 Dose: 600 mg Methimazole (Tapazole) 20 mg PO Q8 [facility] Last Admin: 08/20/18 16:00 Dose: 20 mg Multivitamins (Hexavitamin) 1 tab PEG DAILY [facility] Last Admin: 08/20/18 10:16 Dose: 1 tab Pantoprazole Sodium (Protonix Inj) 40 mg IVP Q12H [facility] Last Admin: 08/20/18 12:05 Dose: 40 mg Propranolol HCl (Inderal) 5 mg PEG TID [facility] Last Admin: 08/20/18 18:08 Dose: Not Given Rosuvastatin Calcium (Crestor) 5 mg PO HS [facility] Last Admin: 08/19/18 22:23 Dose: 5 mg Vitamin A (Vitamin A & D Oint Ud Foilpak) 1 ea TOP BID [facility] Last Admin: 08/20/18 18:10 Dose: 1 ea Zolpidem Tartrate (Ambien) 5 mg PEG HS [facility] Last Admin: 08/19/18 22:22 Dose: 5 mg Zolpidem Tartrate (Ambien) 5 mg PO HS PRN PRN Reason: Insomnia - Labs Labs: 08/20/18 17:03 08/20/18 05:51 PT 13.8 SECONDS (9.7-12.2) H 08/20/18 17:03 INR 1.3 08/20/18 17:03 APTT 39 SECONDS (21-34) H 08/20/18 17:03 Attending/Attestation - Attestation I have personally seen and examined this patient.: Yes I have fully participated in the care of the patient.: Yes I have reviewed all pertinent clinical information, including history, physical exam and plan: Yes Notes (Text): Patient was seen and examined by me at ICU spoke to her at bedside patient is awake, vaginal bleeding.Hold heparin follow cbc transfuse as needed follow [email or web address] I agree with the resident's documentation
[2018-08-20 17:08] LABS: BASO % 0.4 % (0.0-2.0); EOS # 0.3 K/uL (0.0-0.7); EOS % 2.6 % (0.0-4.0); HEMOGLOBIN 9.1 g/dL (11.0-16.0); LYMPH # 1.6 K/uL (1.0-4.3); LYMPH % 16.4 % (20.0-40.0); MEAN CELL VOLUME 89.4 fL (81.0-99.0); MEAN CORPUSCULAR HEMOGLOBIN 30.3 pg (27.0-31.0); MEAN CORPUSCULAR HGB CONC 33.9 g/dL (33.0-37.0); MEAN PLATELET VOLUME 7.7 fL (7.2-11.7); MONO # 0.5 K/uL (0.0-0.8); MONO % 5.2 % (0.0-10.0); NEUT # 7.6 K/uL (1.8-7.0); NEUT % 75.4 % (50.0-75.0); NRBC % 0.1 % (0.0-2.0); RED CELL DISTRIBUTION WIDTH 15.8 % (11.5-14.5)
[2018-08-20 17:16] LABS: INR 1.3; PROTHROMBIN TIME 13.8 SECONDS (9.7-12.2)
[2018-08-21] MEDS: (Novolog) Insulin Aspart, Recombinant 100 u/ml 10 ml vial SC SCH ×4 (00:30→17:57)
[2018-08-21 00:49] LABS: BASO # 0.2 K/uL (0.0-0.2); BASO % 2.2 % (0.0-2.0); EOS # 0.3 K/uL (0.0-0.7); EOS % 3.5 % (0.0-4.0); HEMOGLOBIN 8.6 g/dL (11.0-16.0); LYMPH # 0.8 K/uL (1.0-4.3); LYMPH % 9.8 % (20.0-40.0); MEAN CELL VOLUME 89.9 fL (81.0-99.0); MEAN CORPUSCULAR HGB CONC 33.4 g/dL (33.0-37.0); MEAN PLATELET VOLUME 7.7 fL (7.2-11.7); MONO # 0.5 K/uL (0.0-0.8); MONO % 5.4 % (0.0-10.0); NEUT # 6.8 K/uL (1.8-7.0); NEUT % 79.1 % (50.0-75.0); PLATELET COUNT 227 K/uL (130-400); RBC 2.86 Mil/uL (3.80-5.20); RED CELL DISTRIBUTION WIDTH 15.8 % (11.5-14.5); WHITE BLOOD COUNT 8.6 K/uL (4.8-10.8)
[2018-08-21] MEDS: Acetylcysteine 20% Inhal Soln (4ml) INH SCH ×4 (01:14→20:20)
[2018-08-21] MEDS: Albuterol-Ipratrop 3 mg / 0.5 (3 ml) UD INH SCH ×4 (01:14→20:20)
[2018-08-21 02:03] LABS: ANISOCYTOSIS SLIGHT; BASOPHIL 1 % (0-2); EOSINOPHIL 4 % (0-4); LYMPHOCYTE 12 % (20-40); MONOCYTE 4 % (0-10); NEUTROPHIL 79 % (50-75); PLATELET ESTIMATE NORMAL (NORMAL); TOTAL CELLS COUNTED 100
[2018-08-21 06:22] LABS: BASO % 0.4 % (0.0-2.0); EOS # 0.2 K/uL (0.0-0.7); EOS % 2.9 % (0.0-4.0); HEMOGLOBIN 8.7 g/dL (11.0-16.0); LYMPH % 11.8 % (20.0-40.0); MEAN CELL VOLUME 90.6 fL (81.0-99.0); MEAN CORPUSCULAR HEMOGLOBIN 30.8 pg (27.0-31.0); MEAN PLATELET VOLUME 7.7 fL (7.2-11.7); MONO # 0.5 K/uL (0.0-0.8); MONO % 5.9 % (0.0-10.0); NEUT # 6.6 K/uL (1.8-7.0); RBC 2.82 Mil/uL (3.80-5.20); RED CELL DISTRIBUTION WIDTH 15.6 % (11.5-14.5); WHITE BLOOD COUNT 8.4 K/uL (4.8-10.8)
[2018-08-21 06:28] LABS: BLOOD UREA NITROGEN 41 mg/dL (7-17); CALCIUM 8.1 mg/dl (8.6-10.4)
[2018-08-21 06:29] LABS: ALB/GLOB RATIO 0.8 (1.0-2.1); ALBUMIN 2.7 g/dL (3.5-5.0); ALT/SGPT 40 U/L (9-52); AST/SGOT 47 U/L (14-36); GFR NON-AFRICAN AMERICAN 52
[2018-08-21] MEDS: Multiple Vitamins Tab PEG SCH (10:10)
[2018-08-21] MEDS: Propranolol 5 mg Tab PEG SCH ×3 (10:10→17:56)
[2018-08-21] MEDS: Lactobacillus Acidophilus 500 MU Cap PEG SCH ×2 (10:11→22:43)
[2018-08-21] MEDS: Vitamins A & D Oint UD Foilpak TOP SCH ×2 (10:11→17:56)
[2018-08-21] MEDS: Bacitracin 500 Units/gm Oint Foilpak UD TOP SCH ×2 (10:11→17:56)
[2018-08-21] MEDS: (Lantus) Insulin Glargine, Recombinant SC SCH ×2 (10:12→22:43)
--- NOTE | 2018-08-21 13:33 | VASCLAB ---
Date of service: 08/19/2018 PROCEDURE: Lower Extremity Venous Duplex Exam. HISTORY: hx of dvt PRIORS: None. TECHNIQUE: Bilateral common femoral, femoral, popliteal and posterior tibial, peroneal and great saphenous veins were evaluated. Flow was assessed with color Doppler, compressibility, assessment of phasic flow and augmentation response. Report prepared by KEVIN Rebollar FINDINGS: RIGHT: 1. Common Femoral Vein: 1.1. Compressibility - Fully compressible: Thrombus - None : Flow - Phasic: Augmentation -Normal: Reflux - None. 2. Femoral Vein: 2.1. Compressibility - Fully compressible: Thrombus - None : Flow - Phasic: Augmentation -Normal: Reflux - None. 3. Popliteal Vein: 3.1. Compressibility - Fully compressible: Thrombus - None : Flow - Phasic: Augmentation -Normal: Reflux - None. 4. Posterior Tibial Vein: 4.1. Compressibility - Fully compressible: Thrombus - None: Flow - Phasic: Augmentation -Normal: Reflux - None. 5. Peroneal Vein: 5.1. Compressibility - Fully compressible: Thrombus - None: Flow - Phasic: Augmentation -Normal: Reflux - None. 6. Great Saphenous Vein: 6.1. Compressibility - Fully compressible: Thrombus - None: Flow - Phasic: Augmentation - Normal: Reflux - None. LEFT: 1. Common Femoral Vein: 1.1. Compressibility - Fully compressible: Thrombus - None: Flow - Phasic: Augmentation -Normal: Reflux - None. 2. Femoral Vein: 2.1. Compressibility - Fully compressible: Thrombus - None: Flow - Phasic: Augmentation -Normal: Reflux - None. 3. Popliteal Vein: 3.1. Compressibility - Fully compressible: Thrombus - None : Flow - Phasic: Augmentation -Normal: Reflux - None. 4. Posterior Tibial Vein: 4.1. Compressibility - Fully compressible: Thrombus - None: Flow - Phasic: Augmentation -Normal: Reflux - None. 5. Peroneal Vein: 5.1. Compressibility - Fully compressible: Thrombus - None: Flow - Phasic: Augmentation -Normal: Reflux - None. 6. Great Saphenous Vein: 6.1. Compressibility - Fully compressible: Thrombus - None: Flow - Phasic: Augmentation - Normal: Reflux - None. OTHER FINDINGS: Technically difficult exam due to restless patient. IMPRESSION: Right: No evidence of deep or superficial vein thrombosis of the right lower extremity. Normal valve function noted of the right side. Left: No evidence of deep or superficial vein thrombosis of the left lower extremity. Normal valve function noted of the left side.
--- NOTE | 2018-08-21 14:15 | CP.PCM.PN ---
<Bhanu Villegas - Last Filed: 08/21/18 14:32> Subjective - Date & Time of Evaluation Date of Evaluation: 08/21/18 Time of Evaluation: 14:12 - Subjective Subjective: Hospitalist Service Pt seen and examined at bedside. Responsive to verbal and physical stimuli, non verbal on trach vent. unable to obtain full 12 point ROS Objective - Vital Signs/Intake and Output Vital Signs (last 24 hours): Temp Pulse Resp BP Pulse Ox 98.1 F 93 H 18 127/59 L 100 08/21/18 12:00 08/21/18 12:00 08/21/18 12:00 08/21/18 12:00 08/21/18 12:00 Intake and Output: 08/21/18 08/21/18 06:59 18:59 Intake Total 480 280 Output Total 0 Balance 480 280 - Medications Medications: Current Medications Acetaminophen (Tylenol 650mg/20.3ml Solution Ud) 650 mg PEG Q6 PRN Last Admin: 08/18/18 02:10 Dose: 650 mg Acetylcysteine (Acetylcysteine 20%) 4 ml INH RQ6 MANOLO Last Admin: 08/21/18 13:16 Dose: 4 ml Albuterol/Ipratropium (Duoneb 3 Mg/0.5 Mg (3 Ml) Ud) 3 ml INH RQ6 MANOLO Last Admin: 08/21/18 13:16 Dose: 3 ml Ascorbic Acid (Vitamin C 500 Mg Tab) 1,000 mg NG DAILY MANOLO Last Admin: 08/21/18 10:10 Dose: 1,000 mg Bacitracin (Bacitracin) 1 ea TOP BID MANOLO Last Admin: 08/21/18 10:11 Dose: 1 ea Diphenhydramine HCl (Benadryl) 50 mg PEG HS MANOLO Last Admin: 08/20/18 22:15 Dose: Not Given Ergocalciferol (Drisdol 50,000 Intl Units Cap) 1 cap GT Q7D MANOLO Stop: 10/06/18 19:16 Last Admin: 08/18/18 23:34 Dose: 1 cap Heparin Sodium/Sodium Chloride (Heparin 86220 Units/250ml 1/2 Normal Saline) 25,000 units in 250 mls @ 5.672 mls/hr IV .Q24H PRN; Protocol PRN Reason: ADJUST RATE PER PROTOCOL Last Admin: 08/20/18 10:32 Dose: 12 units/kg/hr, 5.672 mls/hr Insulin Aspart (Novolog) 0 unit SC Q6 [facility]; Protocol Last Admin: 08/21/18 12:37 Dose: Not Given Insulin Glargine (Lantus) 15 unit SC Q12 MANOLO Last Admin: 08/21/18 10:12 Dose: 15 units Lactobacillus Acidophilus (Bacid Acidophilus) 1 cap PEG Q12 MANOLO Last Admin: 08/21/18 10:11 Dose: 1 cap Linezolid (Zyvox) 600 mg PO BID MANOLO; Protocol Stop: 08/21/18 18:01 Last Admin: 08/21/18 10:09 Dose: 600 mg Methimazole (Tapazole) 20 mg PO Q8 [facility] Last Admin: 08/21/18 13:48 Dose: 20 mg Multivitamins (Hexavitamin) 1 tab PEG DAILY [facility] Last Admin: 08/21/18 10:10 Dose: 1 tab Pantoprazole Sodium (Protonix Inj) 40 mg IVP Q12H MANOLO Last Admin: 08/21/18 12:35 Dose: 40 mg Propranolol HCl (Inderal) 5 mg PEG TID [facility] Last Admin: 08/21/18 13:48 Dose: 5 mg Rosuvastatin Calcium (Crestor) 5 mg PO HS [facility] Last Admin: 08/20/18 21:27 Dose: 5 mg Vitamin A (Vitamin A & D Oint Ud Foilpak) 1 ea TOP BID [facility] Last Admin: 08/21/18 10:11 Dose: 1 ea Zolpidem Tartrate (Ambien) 5 mg PEG HS [facility] Last Admin: 08/20/18 21:30 Dose: 5 mg - Labs Labs: 08/21/18 06:05 08/21/18 06:03 PT 13.8 SECONDS (9.7-12.2) H 08/20/18 17:03 INR 1.3 08/20/18 17:03 APTT 39 SECONDS (21-34) H 08/20/18 17:03 - Additional Findings Additional findings: - Constitutional Appears: Cachectic, Chronically Ill - Eye Exam Eye Exam: absent: EOMI, Normal appearance, PERRL, Scleral icterus Additional comments: non purposeful movements - ENT Exam ENT Exam: Mucous Membranes Moist - Neck Exam Neck Exam: Full ROM. absent: Lymphadenopathy - Respiratory Exam Respiratory Exam: Clear to Ausculation Bilateral - Cardiovascular Exam Cardiovascular Exam: REGULAR RHYTHM - GI/Abdominal Exam GI & Abdominal Exam: Soft, Normal Bowel Sounds (PEG site clean dry and intact ) - Extremities Exam Extremities Exam: Full ROM. absent: Calf Tenderness, Pedal Edema - Back Exam Back Exam: NORMAL INSPECTION. absent: CVA tenderness (L), CVA tenderness (R) - Neurological Exam Neurological Exam: Awake. absent: Alert, CN II-XII Intact, Normal Gait, Oriented x3 Additional comments: GCS 9T; patient is on trach vent Assessment and Plan - Assessment and Plan (Free Text) Assessment: 52yo F originally admitted to the ICU for Septic shock 2/2 to PNA/UTI worsened by embolic stroke, cardiac arrest, and anoxic brain injury Septic Shock secondary to Pneumonia and Urinary Tract Infection; resolved * Infectious Disease (Dr. Brock) on case-->help appreciated * Tmax 101F (08/07/18); last fever, no elevated white count * Patient is off pressors. Completed IV abx for aspiration pneumonia and on PO abx for latest urinary tract infection * 08/12/18 Blood cultur: no growth after 5 days X2 * 08/12/18 Urine Culture: VRE * 08/14/18: Urine culture Repeat No growth * patient is on Zyvox 600mg PO BID (started on 08/14/18): ID has recommended for 7 days total. to finish on 08/21/18 * Chest xray (08/18/18): left sided PICC likely terminates at the proximal right atrium. Tracheostomy tube. Mild pulmonary venous congestion. Small left pleural effusion. Dysfunctional Uterine bleeding -patient has thickened endometrial stripe and dysfunctional uterine bleeding -patient will ultimately need hysterectomy; however poor surgical candidate -re-consult OBGYN in the future; will monitor hgb LLE DVT-resolved * Bilateral LE Dopplers Neg 08/21 * Heparin drip @ 12 * [facility] consulted for possible IVC Anoxic Encephalopathy * Code Blue 07/10 and 07/20 * Pt GCS 9 * CT head: no acute intracranial pathology. Age-related changes. no significant interval change. Acute Respiratory Failure leading to chronic respiratory failure Pulmonary Edema * Patient underwent tracheostomy 07/24/18 * Patient had tolerated trach collars last weekend thru Tuesday; however she has been on vent for the past three days. When I spoke with the Rn, patient is failed on weaning off vent with Respiratory therapy * Pulmonary (Dr. Lozada) on board-->assisting with weaning from trach on vent to trach collar * Nursing instructed to clean site of trach insertion * Duonebs 3ml Inh Q6H * Add Mucomyst to reduce secretions * Chest xray (08/18/18): left sided PICC likely terminates at the proximal right atrium. Tracheostomy tube. Mild pulmonary venous congestion. Small left pleural effusion-->given dose of Lasix 20mg IV X1 * Chest xray (08/19/18) appears improved compared to yesterday patient continues to fail daily CPAP-->trach collar weaning Ventricular Tachycardia w/ Thrombus * Code Blue 07/10: SVT==>VT required amiodarone, magnesium, one shock delivered * Code Blue 07/20: vtach s/p amiodarone, fluid, calcium gluconate, required compressions and shock * Cardiology Dr Francisco on case help appreciated * No cath needed. * Medical management * No chemical anticoagulation in light of bleeding episodes (patient has dysfunction uterine bleeding required blood transfusions; Ob has been consulted earlier in the hospitalization to inpatient workup)-->recommending heparin 5000 unit subq8 (DVT ppx dose) and aspirin 81mg PO daily; likely thrombus is organized a month of anticoagulation; risk is due to bleeding against stroke * Propranolol 5mg PO TID (hold SBP<100 and HR<60) * Heparin drip @ 12 * pending official report of repeat echo Urinary Tract Infection -last dose of today Zyvox 600mg PO BID for 7 days since Tuesday08/14/18 per ID for VRE to finish 08/21/18 * on Contact isolation Diabetes-->chronic * HgBA1c: 7.8 * Hypoglycemic protocol * Lantus 15 units subcutaneous at bedtime Q12 * Accuchecks Q6H * Aspirin 81mg PO daily * Crestor 5mg POqHS Acute on Chronic Renal Failure * Nephrology (Dr. Hyde) on board--> help appreciated * Patient will likely not need dialysis * mildly improving Hyperthyroidism? Low TSH, and Free T4 Thyroid Storm * Note Thyroid studies taken before amiodarone was given (please advised this is not amiodarone induced her levels were abnormal prior) * Patient does not have prior thyroid history * Endocrinology (Dr. 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 She will need outpatient FNA Bx of the complex Left Lobe cyst (please see full report) * Methimazole 20mg PO TID * Propranolol 5 mg PO TID * Monitor LFTs Anemia Likely Secondary to Chronic Diseases * Iron normal, TIBC low, Iron Saturation normal, Ferritin normal * Stool occult blood negative * B12 normal * Folate Normal * Transfused 1 unit PRBC 07/22/18, 2 unit of PRBC 08/13/18 1 unit on 08/17/18 * Patient has been seen by OB Hospitalist; no contraindication to anticoagulation * Case discussed with brick siding applicator recommending against eliquis in light of bleeding; recommending for DVT ppx and aspirin * Start heparin drip to cover for DVT and thrombus * Discussed with for possible IVC filter-->he would like to think about it, he is against hysterectomy * Repeat venous doppler pending read 08/20: heparin drip was started yesterday 08/19; held last ; restarted 11am 08/21; will continue to monitor Vitamin D deficiency * 50,000 international units once a week (3 doses given so far) * Restart Vitamin D 50,000 IU once a week for 9 weeks (on 08/18/18) Prophylactic measure * Protonix 40mg PO BID * Lactobacillus 1 cap PO BID * MVI 1x/day * Vitamin C 1,000 NG 1x/day * s/p Trach and Peg * SCD on Right and contraindicated on Left due to DVT * Peg feedings * Change to Pulmcar 40cc/hr * patient had frequent BMs on prior formula; no diarrhea; we have spoken with dietary to change it * PICC Line 07/31/18 * Start Benadryl 50mg GT at night and Ambien 5mg POqHS to reset circadian rhythm so patient tries to sleep at night and remain awake during the day to work with PT/OT * Heparin drip @ 12 Disposition: * we are going to reattempt to reset patient's sleep wake cycle. patient is reliant on her as her cue to relieve delirium. Patient is started on Benadryl and Ambien tonight. We will increase Benadryl or Ativan. Recommended to either increase benadryl or increase ambien dose. Do not given be nzo/haldol/sequerol-->attempt to increase benadryl dose first. * Eliquis d/c given bleeding-->cardio recommended for dvt ppx and aspirin * Start heparin drip 08/19/18--> to think about IVC filter. Spoke to regarding hysterectomy and he is "for whatever will make my be tter". * [facility] consulted for IVC filter * Repeat venous doppler to monitor Left DVT; may need to consult vascular surgery for IVC filter in the future * Zyvox for total of 7 days, to end 08/21/18 Case discussed and seen with Dr. Leahy <Saira Leahy V - Last Filed: 08/21/18 21:07> Objective - Vital Signs/Intake and Output Vital Signs (last 24 hours): Temp Pulse Resp BP Pulse Ox 98.5 F 96 H 16 115/56 L 100 08/21/18 20:00 08/21/18 16:00 08/21/18 16:00 08/21/18 16:00 08/21/18 20:00 Intake and Output: 08/21/18 08/22/18 18:59 06:59 Intake Total 480 80 Balance 480 80 - Medications Medications: Current Medications Acetaminophen (Tylenol 650mg/20.3ml Solution Ud) 650 mg PEG Q6 PRN Last Admin: 08/18/18 02:10 Dose: 650 mg Acetylcysteine (Acetylcysteine 20%) 4 ml INH RQ6 MANOLO Last Admin: 08/21/18 20:20 Dose: 4 ml Albuterol/Ipratropium (Duoneb 3 Mg/0.5 Mg (3 Ml) Ud) 3 ml INH RQ6 MANOLO Last Admin: 08/21/18 20:20 Dose: 3 ml Ascorbic Acid (Vitamin C 500 Mg Tab) 1,000 mg NG DAILY MANOLO Last Admin: 08/21/18 10:10 Dose: 1,000 mg Bacitracin (Bacitracin) 1 ea TOP BID MANOLO Last Admin: 08/21/18 17:56 Dose: 1 ea Diphenhydramine HCl (Benadryl) 50 mg PEG HS MANOLO Last Admin: 08/20/18 22:15 Dose: Not Given Ergocalciferol (Drisdol 50,000 Intl Units Cap) 1 cap GT Q7D MANOLO Stop: 10/06/18 19:16 Last Admin: 08/18/18 23:34 Dose: 1 cap Heparin Sodium/Sodium Chloride (Heparin 05195 Units/250ml 1/2 Normal Saline) 25,000 units in 250 mls @ 5.672 mls/hr IV .Q24H PRN; Protocol PRN Reason: ADJUST RATE PER PROTOCOL Last Admin: 08/20/18 10:32 Dose: 12 units/kg/hr, 5.672 mls/hr Insulin Aspart (Novolog) 0 unit SC Q6 [facility]; Protocol Last Admin: 08/21/18 17:57 Dose: Not Given Insulin Glargine (Lantus) 15 unit SC Q12 MANOLO Last Admin: 08/21/18 10:12 Dose: 15 units Lactobacillus Acidophilus (Bacid Acidophilus) 1 cap PEG Q12 MANOLO Last Admin: 08/21/18 10:11 Dose: 1 cap Methimazole (Tapazole) 20 mg PO Q8 [facility] Last Admin: 08/21/18 13:48 Dose: 20 mg Multivitamins (Hexavitamin) 1 tab PEG DAILY [facility] Last Admin: 08/21/18 10:10 Dose: 1 tab Pantoprazole Sodium (Protonix Inj) 40 mg IVP Q12H MANOLO Last Admin: 08/21/18 12:35 Dose: 40 mg Propranolol HCl (Inderal) 5 mg PEG TID MANOLO Last Admin: 08/21/18 17:56 Dose: 5 mg Rosuvastatin Calcium (Crestor) 5 mg PO HS MANOLO Last Admin: 08/20/18 21:27 Dose: 5 mg Vitamin A (Vitamin A & D Oint Ud Foilpak) 1 ea TOP BID MANOLO Last Admin: 08/21/18 17:56 Dose: 1 ea Zolpidem Tartrate (Ambien) 5 mg PEG HS MANOLO Last Admin: 08/20/18 21:30 Dose: 5 mg - Labs Labs: 08/21/18 06:05 08/21/18 06:03 PT 13.8 SECONDS (9.7-12.2) H 08/20/18 17:03 INR 1.3 08/20/18 17:03 APTT 39 SECONDS (21-34) H 08/20/18 17:03 Assessment and Plan (1) Septic shock Status: Acute (2) Acute respiratory failure Status: Acute (3) Urinary tract infection Status: Acute (4) Acute renal failure Status: Acute (5) Aspiration pneumonia Status: Acute (6) Diabetes mellitus Status: Chronic (7) Ventricular arrhythmia Status: Acute (8) Hyperthyroidism Status: Acute (9) Anemia Status: Acute (10) Prophylactic measure Status: Acute Attending/Attestation - Attestation I have personally seen and examined this patient.: Yes I have fully participated in the care of the patient.: Yes I have reviewed all pertinent clinical information, including history, physical exam and plan: Yes Notes (Text): Patient seen, examined, and case discussed with day-time resident. Patient seen at bedside this afternoon. No overnight events. Patient is very c jaime at bedside. Patient is receiving ambien at night in attempt to reset sleep wake cycle. Patient to finish last day of Zyvox. Patient has completed one month of eliquis in attempts to treatment of DVT and thrombus in heart. Anticoagulation d/c given worsening vaginal bleeding. Have consulted vascular surgery to see if patient is a candidate for IVC filter since she has completed one month of anticoagulation and there is resolution of DVT on repeat US. Third echocardiogram not officially read. Hgb 8s. Patient has not have abnormal vaginal bleeding reported by nursing staff; off anticoagulation given drop in hemoglobin. Will need to see husbands opinion regarding hysterectomy if patient continues to have persistent vaginal bleeding with hemoglobin drop since she is off anticoagulation. We will need f/u with ID, since repeat urine is showing yeast. 1) Septic Shock secondary to Pneumonia and Urinary Tract Infection Assessment/Plan * Infectious Disease (Dr. Brock) on case-->help appreciated * Tmax 101F (08/07/18); last fever, no elevated white count * Patient is off pressors. Completed IV abx for aspiration pneumonia and on PO abx for latest urinary tract infection * 08/12/18 Blood cultur: no growth after 5 days X2 * 08/12/18 Urine Culture: VRE * 08/14/18: Urine culture Repeat No growth * patient is on Zyvox 600mg PO BID (started on 08/14/18): ID has recommended for 7 days total * Chest xray (08/18/18): left sided PICC likely terminates at the proximal right atrium. Tracheostomy tube. Mild pulmonary venous congestion. Small left pleural effusion. 2) Anoxic Encephalopathy Assessment/Plan * Code Blue 07/10 and 07/20 * Patient prior knowledge of 5 languages per but does not follow commands; I did speak with the and as for him to speak with her and does not follow with him. Later with his nurse, Martin Rider patient noteably more agitated when she is having frequent bms or needs to be washed and is unable to communicate her needs because of limited of language. * I did speak with Dr. Pham today in regards to reset patient's sleep wake cycle--> her pattern tends to be she is agitated at night when her is not present (her reliable social cue) receives benzo/haldol/seroquel and becomes very lethargic in the morning which presents rehab from working with her. We have planned for Benadryl 50mg via peg and ambien 5mg POqHS to reset her sleep wake cycle. We will increase benadryl dose or add Ambien 5mg POqHS if does not hold patient at night. Note Patient is connected to vent. She is unable to get off vent keeps failing trial for the past 3 days. She is unable to get the MRI because the vent does not fit in the MRI. * CT head: no acute intracranial pathology. Age-related changes. no significant interval change. 3) Acute Respiratory Failure Pulmonary Edema Assessment/Plan * Patient underwent tracheostomy 07/24/18 * Patient had tolerated trach collars last weekend thru Tuesday; however she has been on vent for the past three days. When I spoke with the Rn, patient is failed on weaning off vent with Respiratory therapy * Pulmonary (Dr. Lozada) on board-->assisting with weaning from trach on vent to trach collar * Duonebs 3ml Inh Q6H * Add Mucomyst to reduce secretions * Chest xray (08/18/18): left sided PICC likely terminates at the proximal right atrium. Tracheostomy tube. Mild pulmonary venous congestion. Small left pleural effusion-->given dose of Lasix 20mg IV X1 * Chest xray (08/19/18) appears improved compared to yesterday 4) Ventricular Tachycardia NSTEMI Apical Thrombus LLE DVT Assessment/Plan * Code Blue 07/10: SVT==>VT required amiodarone, magnesium, one shock delivered * Code Blue 07/20: vtach s/p amiodarone, fluid, calcium gluconate, required compressions and shock * Cardiology Dr Francisco on case help appreciated * No cath needed. * Medical management * No chemical anticoagulation in light of bleeding episodes (patient has dysfunction uterine bleeding required blood transfusions; Ob has been consulted earlier in the hospitalization to inpatient workup)-->recommending heparin 5000 unit subq8 (DVT ppx dose) and aspirin 81mg PO daily; likely thrombus is organized a month of anticoagulation; risk is due to bleeding against stroke * Propranolol 5mg PO TID (hold SBP<100 and HR<60) * Eliquis d/c bleeding and anemia-->dvt ppx and aspirin * pending official report of repeat echo 4) Urinary Tract Infection Assessment/Plan * Zyvox 600mg PO BID for 7 days since Tuesday08/14/18 per ID for VRE * on Contact isolation 5) Diabetes-->chronic Assessment/Plan * HgBA1c: 7.8 * Hypoglycemic protocol * Lantus 15 units subcutaneous at bedtime Q12 * Accuchecks Q6H * Aspirin 81mg PO daily * Crestor 5mg POqHS 6) Acute on Chronic Renal Failure Assessment/Plan * Nephrology (Dr. Hyde) on board--> help appreciated * Patient will likely not need dialysis * mildly improving 7) Hyperthyroidism? Low TSH, and Free T4 Thyroid Storm Assessment/Plan * Note Thyroid studies taken before amiodarone was given (please advised this is not amiodarone induced her levels were abnormal prior) * Patient does not have prior thyroid history * Endocrinology (Dr. 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 She will need outpatient FNA Bx of the complex Left Lobe cyst (please see full report) * Methimazole 20mg PO TID * Propranolol 5 mg PO TID * Monitor LFTs 8) Anemia Likely Secondary to Chronic Diseases Assessment/Plan * Iron normal, TIBC low, Iron Saturation normal, Ferritin normal * Stool occult blood negative * B12 normal * Folate Normal * Transfused 1 unit PRBC 07/22/18, 2 unit of PRBC 08/13/18 1 unit on 08/17/18 * Patient has been seen by OB Hospitalist; no contraindication to anticoagulation * Case discussed with brick siding applicator recommending against eliquis in light of bleeding; recommending for DVT ppx and aspirin * Start heparin drip to cover for DVT and thrombus * Discussed with for possible IVC filter-->he would like to think about it, he is against hysterectomy * Repeat venous doppler pending read 9) Transminitis-->improving * Likely secondary to Sepsis and Amiodarone (which was discontinued) * Hepatitis serology negative * Normalized 10) Vitamin D deficiency Assessment plan * 50,000 international units once a week (3 doses given so far) * Restart Vitamin D 50,000 IU once a week for 9 weeks (on 08/18/18) 11) Thrombocytopenia-->resolved Assessment plan * HIT/RUSTY were negative 12) 13 mm Left Adrenal Nodule * As seen on CT Chest 07/16/18 * Will need outpatient follow up for cross sectional imaging for better characterization 13) Hypernatremia-->resolved * Free water 250 ml 3x/day via OGT * Na now normal 14) LLE DVT * Eliquis 5 mg PO BID d/c 08/17 * Acute thrombosis of the left common femoral and femoral veins with severe reduction of the venous return on 07/18/18 venous doppler * Patient had completed one month on Eliquis; however she continues to have dysfunction uterine bleeding; cardiology is recommending against eliquis for thrombus given bleeding risk * Will repeat doppler to see if DVT has resolved; may need to consult vascular surgery for IVC filter * would like to think about this * On heparin drip for now 15) Deconditioning * Patient needs continued PT/OT * I did speak with Dr. Pham 08/18 in regards to reset patient's sleep wake cycle--> her pattern tends to be she is agitated at night when her is not present (her reliable social cue) receives benzo/haldol/seroquel and becomes very lethargic in the morning which presents rehab from working with her. We have planned for Benadryl 50mg via peg and ambien 5mg POqHS to reset her sleep wake cycle. We will increase benadryl dose or add Ambien 5mg POqHS if does not hold patient at night. Note Patient is connected to vent. She is unable to get off vent keeps failing trial for the past 3 days. She is unable to get the MRI because the vent does not fit in the MRI. 16) Prophylactic measure * Protonix 40mg PO BID * Lactobacillus 1 cap PO BID * MVI 1x/day * Vitamin C 1,000 NG 1x/day * s/p Trach and Peg * SCD on Right and contraindicated on Left due to DVT * Peg feedings * Change to Pulmcar 40cc/hr * patient had frequent BMs on prior formula; no diarrhea; we have spoken with dietary to change it * PICC Line 07/31/18 * Note: speak to patient in alexis to assess neurologic status-->she does follow sometimes * Start Benadryl 50mg GT at night and Ambien 5mg POqHS to reset circadian rhythm so patient tries to sleep at night and remain awake during the day to work with PT/OT Disposition: * To finish zyvox today for VRE UTI * off anticoagulation given H/H drop suspected to dysfunctional uterine bleeding * Will consult vascular surgery to see if patient is candidate for IVC filter, since has only completed 1 month of anticoagulation for LLE DVT though US resolution of DVT * per cardio, dvt ppx/aspirin for cardiac thrombus chemical anticoagulation stopped given h/h drops
--- NOTE | 2018-08-21 17:54 | CP.PCM.CON ---
History of Present Illness - History of Present Illness History of Present Illness: Vascular surgery consult for Dr. Perry Consulted for: IVC filter placement Patient is currently intubated, history was acquired from patient records and . Patient unable for provide current ROS. Patient is a 52 YO F with PMHx of DM, presented to the ED for generalized malaise of 2-3 weeks on 07/07/18, had acute respiratory failure and IL, and now has been on mcc mechanical ventilation with tracheostomy tube. Patient was discovered to have DVT of L common femoral and femoral vein 07/18/18, and has completed one month course of Eliquis. Repeat doppler on 08/18/18 did not demonstrate any remaining DVT. She has now developed new onset uterine bleed and primary/caridology want to hold eliquis d/t bleeding risk. Since patient did not complete full recommended time period of anticoagulation s/p DVT, vascular j luis raphael is being consulted for placement of IVC filter for PE prophylaxis. PMH - DM, HLD, HTN PSH - Tracheostomy, EGD + PEG insertion, BL oopherectomy ALL - NKDA Fam Hx - denies Social - denies tobacco, alcohol, and illicit drug use Review of Systems - Review of Systems Systems not reviewed;Unavailable: Altered Mental Status Past Patient History - Tetanus Immunizations Tetanus Immunization: Unknown - Past Medical History & Family History Past Family History: Reviewed and not pertinent - Past Social History Smoking Status: Never Smoked Alcohol: None Drugs: Denies Home Situation {Lives}: With Family - CARDIAC Hx Hypercholesterolemia: Yes - PULMONARY Hx Respiratory Disorders: No - NEUROLOGICAL Hx Neurological Disorder: No - HEENT Hx HEENT Problems: No - RENAL Hx Chronic Kidney Disease: No - ENDOCRINE/METABOLIC Hx Diabetes Mellitus Type 1: Yes - HEMATOLOGICAL/ONCOLOGICAL Hx Blood Disorders: No - INTEGUMENTARY Hx Dermatological Problems: No - MUSCULOSKELETAL/RHEUMATOLOGICAL Hx Musculoskeletal Disorders: No Hx Falls: No - GASTROINTESTINAL Hx Gastrointestinal Disorders: No - GENITOURINARY/GYNECOLOGICAL Hx Genitourinary Disorders: No - PSYCHIATRIC Hx Substance Use: No - SURGICAL HISTORY Other/Comment: removal of ovaries - ANESTHESIA Hx Anesthesia: Yes Hx Anesthesia Reactions: No Hx Malignant Hyperthermia: No Meds Allergies/Adverse Reactions: Allergies Allergy/AdvReac Type Severity Reaction Status Date / Time No Known Allergies Allergy Unverified 07/03/18 23:36 - Medications Medications: Current Medications Acetaminophen (Tylenol 650mg/20.3ml Solution Ud) 650 mg PEG Q6 PRN Last Admin: 08/18/18 02:10 Dose: 650 mg Acetylcysteine (Acetylcysteine 20%) 4 ml INH RQ6 [facility] Last Admin: 08/21/18 13:16 Dose: 4 ml Albuterol/Ipratropium (Duoneb 3 Mg/0.5 Mg (3 Ml) Ud) 3 ml INH RQ6 [facility] Last Admin: 08/21/18 13:16 Dose: 3 ml Ascorbic Acid (Vitamin C 500 Mg Tab) 1,000 mg NG DAILY [facility] Last Admin: 08/21/18 10:10 Dose: 1,000 mg Bacitracin (Bacitracin) 1 ea TOP BID [facility] Last Admin: 08/21/18 10:11 Dose: 1 ea Diphenhydramine HCl (Benadryl) 50 mg PEG HS [facility] Last Admin: 08/20/18 22:15 Dose: Not Given Ergocalciferol (Drisdol 50,000 Intl Units Cap) 1 cap GT Q7D [facility] Stop: 10/06/18 19:16 Last Admin: 08/18/18 23:34 Dose: 1 cap Heparin Sodium/Sodium Chloride (Heparin 80700 Units/250ml 1/2 Normal Saline) 25,000 units in 250 mls @ 5.672 mls/hr IV .Q24H PRN; Protocol PRN Reason: ADJUST RATE PER PROTOCOL Last Admin: 08/20/18 10:32 Dose: 12 units/kg/hr, 5.672 mls/hr Insulin Aspart (Novolog) 0 unit SC Q6 [facility]; Protocol Last Admin: 08/21/18 12:37 Dose: Not Given Insulin Glargine (Lantus) 15 unit SC Q12 [facility] Last Admin: 08/21/18 10:12 Dose: 15 units Lactobacillus Acidophilus (Bacid Acidophilus) 1 cap PEG Q12 [facility] Last Admin: 08/21/18 10:11 Dose: 1 cap Linezolid (Zyvox) 600 mg PO BID [facility]; Protocol Stop: 08/21/18 18:01 Last Admin: 08/21/18 10:09 Dose: 600 mg Methimazole (Tapazole) 20 mg PO Q8 [facility] Last Admin: 08/21/18 13:48 Dose: 20 mg Multivitamins (Hexavitamin) 1 tab PEG DAILY [facility] Last Admin: 08/21/18 10:10 Dose: 1 tab Pantoprazole Sodium (Protonix Inj) 40 mg IVP Q12H [facility] Last Admin: 08/21/18 12:35 Dose: 40 mg Propranolol HCl (Inderal) 5 mg PEG TID [facility] Last Admin: 08/21/18 13:48 Dose: 5 mg Rosuvastatin Calcium (Crestor) 5 mg PO HS [facility] Last Admin: 08/20/18 21:27 Dose: 5 mg Vitamin A (Vitamin A & D Oint Ud Foilpak) 1 ea TOP BID [facility] Last Admin: 08/21/18 10:11 Dose: 1 ea Zolpidem Tartrate (Ambien) 5 mg PEG HS [facility] Last Admin: 08/20/18 21:30 Dose: 5 mg Physical Exam - Constitutional Appears: No Acute Distress, Chronically Ill - Head Exam Head Exam: ATRAUMATIC, NORMOCEPHALIC - Eye Exam Eye Exam: Normal appearance. absent: Conjunctival injection, Scleral icterus - ENT Exam ENT Exam: Mucous Membranes Moist, Normal Oropharynx - Neck Exam Additional comments: tracheostomy tube in place with minimal serous drainage - Respiratory Exam Respiratory Exam: NORMAL BREATHING PATTERN. absent: Accessory Muscle Use, Respiratory Distress Additional comments: on mechanical ventilation SIMV mode - Cardiovascular Exam Cardiovascular Exam: RRR - GI/Abdominal Exam GI & Abdominal Exam: Soft. absent: Distended, Tenderness - Extremities Exam Extremities exam: Negative for: calf tenderness, pedal edema - Neurological Exam Neurological exam: Altered - Psychiatric Exam Psychiatric exam: Normal Affect, Normal Mood - Skin Skin Exam: Dry, Normal Color, Warm Results - Vital Signs Recent Vital Signs: Last Vital Signs Temp 98.1 F 08/21/18 12:00 Pulse 93 H 08/21/18 12:00 Resp 18 08/21/18 12:00 BP 127/59 L 08/21/18 12:00 Pulse Ox 100 08/21/18 12:00 - Labs Result Diagrams: 08/21/18 06:05 08/21/18 06:03 Labs: Laboratory Results - last 24 hr 08/20/18 08/20/18 08/20/18 17:36 18:07 23:31 WBC RBC Hgb Hct MCV MCH MCHC RDW Plt Count MPV Neut % (Auto) Lymph % (Auto) [place] % (Auto) Eos % (Auto) Baso % (Auto) Neut # (Auto) Lymph # (Auto) [place] # (Auto) Eos # (Auto) Baso # (Auto) Neutrophils % (Manual) Lymphocytes % (Manual) Monocytes % (Manual) Eosinophils % (Manual) Basophils % (Manual) Platelet Estimate Anisocytosis (manual) Sodium Potassium Chloride Carbon Dioxide Anion Gap BUN Creatinine Est GFR ( Amer) Est GFR (Non-Af Amer) POC Glucose (mg/dL) 103 109 Random Glucose Calcium Phosphorus Magnesium Total Bilirubin AST ALT Alkaline Phosphatase Total Protein Albumin Globulin Albumin/Globulin Ratio Antibody Screen Negative 08/21/18 08/21/18 08/21/18 00:20 05:45 06:03 WBC 8.6 RBC 2.86 L Hgb 8.6 L Hct 25.7 L MCV 89.9 MCH 30.0 MCHC 33.4 RDW 15.8 H Plt Count 227 MPV 7.7 Neut % (Auto) 79.1 H Lymph % (Auto) 9.8 L [place] % (Auto) 5.4 Eos % (Auto) 3.5 Baso % (Auto) 2.2 H Neut # (Auto) 6.8 Lymph # (Auto) 0.8 L [place] # (Auto) 0.5 Eos # (Auto) 0.3 Baso # (Auto) 0.2 Neutrophils % (Manual) 79 H Lymphocytes % (Manual) 12 L Monocytes % (Manual) 4 Eosinophils % (Manual) 4 Basophils % (Manual) 1 Platelet Estimate Normal Anisocytosis (manual) Slight Sodium 143 Potassium 4.2 Chloride 115 H Carbon Dioxide 22 Anion Gap 10 BUN 41 H Creatinine 1.1 Est GFR ( Amer) > 60 Est GFR (Non-Af Amer) 52 POC Glucose (mg/dL) 158 H Random Glucose 170 H Calcium 8.1 L Phosphorus 3.5 Magnesium 2.8 H Total Bilirubin 0.7 AST 47 H ALT 40 Alkaline Phosphatase 373 H Total Protein 6.2 L Albumin 2.7 L Globulin 3.5 Albumin/Globulin Ratio 0.8 L Antibody Screen 08/21/18 08/21/18 06:05 11:57 WBC 8.4 RBC 2.82 L Hgb 8.7 L Hct 25.5 L MCV 90.6 MCH 30.8 MCHC 34.0 RDW 15.6 H Plt Count 224 MPV 7.7 Neut % (Auto) 79.0 H Lymph % (Auto) 11.8 L [place] % (Auto) 5.9 Eos % (Auto) 2.9 Baso % (Auto) 0.4 Neut # (Auto) 6.6 Lymph # (Auto) 1.0 [place] # (Auto) 0.5 Eos # (Auto) 0.2 Baso # (Auto) 0.0 Neutrophils % (Manual) Lymphocytes % (Manual) Monocytes % (Manual) Eosinophils % (Manual) Basophils % (Manual) Platelet Estimate Anisocytosis (manual) Sodium Potassium Chloride Carbon Dioxide Anion Gap BUN Creatinine Est GFR ( Amer) Est GFR (Non-Af Amer) POC Glucose (mg/dL) 122 H Random Glucose Calcium Phosphorus Magnesium Total Bilirubin AST ALT Alkaline Phosphatase Total Protein Albumin Globulin Albumin/Globulin Ratio Antibody Screen Assessment & Plan - Assessment and Plan (Free Text) Assessment: 52F with DVT and uterine bleed preventing further chemical anticoagulation Plan: - May consider placement of IVC filter--Pt is in a unique scenario as patient has had 1 month Eliquis but with ultrasonigraphic resolution of DVT. Will consider risk vs. benefit of IVC - Continue to monitor patient status - Continue management as per primary care team Seen and examined with Dr. Perry--further recommendations per him Skyla Rodriguez, PGY2
[2018-08-22] MEDS: (Novolog) Insulin Aspart, Recombinant 100 u/ml 10 ml vial SC SCH ×4 (00:18→18:16)
[2018-08-22] MEDS: Albuterol-Ipratrop 3 mg / 0.5 (3 ml) UD INH SCH ×4 (02:01→19:50)
[2018-08-22] MEDS: Acetylcysteine 20% Inhal Soln (4ml) INH SCH ×4 (02:01→19:50)
[2018-08-22 06:40] LABS: BASO % 0.3 % (0.0-2.0); EOS # 0.3 K/uL (0.0-0.7); EOS % 3.4 % (0.0-4.0); HEMOGLOBIN 8.1 g/dL (11.0-16.0); LYMPH # 1.1 K/uL (1.0-4.3); LYMPH % 12.5 % (20.0-40.0); MEAN CELL VOLUME 90.1 fL (81.0-99.0); MEAN CORPUSCULAR HEMOGLOBIN 29.7 pg (27.0-31.0); MEAN CORPUSCULAR HGB CONC 32.9 g/dL (33.0-37.0); MEAN PLATELET VOLUME 7.9 fL (7.2-11.7); MONO # 0.5 K/uL (0.0-0.8); NEUT # 6.7 K/uL (1.8-7.0); NEUT % 77.8 % (50.0-75.0); RBC 2.74 Mil/uL (3.80-5.20); RED CELL DISTRIBUTION WIDTH 15.7 % (11.5-14.5); WHITE BLOOD COUNT 8.6 K/uL (4.8-10.8)
[2018-08-22 06:53] LABS: ALB/GLOB RATIO 0.8 (1.0-2.1); ALBUMIN 2.7 g/dL (3.5-5.0); ALT/SGPT 43 U/L (9-52); AST/SGOT 38 U/L (14-36); BLOOD UREA NITROGEN 35 mg/dL (7-17); CALCIUM 7.2 mg/dl (8.6-10.4); GFR NON-AFRICAN AMERICAN > 60
--- NOTE | 2018-08-22 08:36 | CP.PCM.PN ---
Subjective - Date & Time of Evaluation Date of Evaluation: 08/22/18 Time of Evaluation: 08:32 - Subjective Subjective: Vascular Surgery Progress Note for Dr. Perry This 52F was seen and examined this AM at bedside. No acute events reported overnight. Per the nurse the patient continues to have low volume vaginal bleeding similar to a menstrual bleed. Patient is currently unable to provide subjective. Objective - Vital Signs/Intake and Output Vital Signs (last 24 hours): Temp Pulse Resp BP Pulse Ox 98.7 F 96 H 16 115/56 L 100 08/22/18 04:00 08/21/18 16:00 08/21/18 16:00 08/21/18 16:00 08/22/18 04:00 Intake and Output: 08/22/18 08/22/18 06:59 18:59 Intake Total 630 140 Output Total 2 0 Balance 628 140 - Medications Medications: Current Medications Acetaminophen (Tylenol 650mg/20.3ml Solution Ud) 650 mg PEG Q6 PRN Last Admin: 08/18/18 02:10 Dose: 650 mg Acetylcysteine (Acetylcysteine 20%) 4 ml INH RQ6 [facility] Last Admin: 08/22/18 07:55 Dose: Not Given Albuterol/Ipratropium (Duoneb 3 Mg/0.5 Mg (3 Ml) Ud) 3 ml INH RQ6 [facility] Last Admin: 08/22/18 07:53 Dose: 3 ml Ascorbic Acid (Vitamin C 500 Mg Tab) 1,000 mg NG DAILY [facility] Last Admin: 08/21/18 10:10 Dose: 1,000 mg Bacitracin (Bacitracin) 1 ea TOP BID [facility] Last Admin: 08/21/18 17:56 Dose: 1 ea Diphenhydramine HCl (Benadryl) 50 mg PEG HS [facility] Last Admin: 08/21/18 22:50 Dose: Not Given Ergocalciferol (Drisdol 50,000 Intl Units Cap) 1 cap GT Q7D [facility] Stop: 10/06/18 19:16 Last Admin: 08/18/18 23:34 Dose: 1 cap Fluconazole (Diflucan) 100 mg PO DAILY [facility]; Protocol Stop: 08/29/18 23:59 Heparin Sodium/Sodium Chloride (Heparin 20304 Units/250ml 1/2 Normal Saline) 25,000 units in 250 mls @ 5.672 mls/hr IV .Q24H PRN; Protocol PRN Reason: ADJUST RATE PER PROTOCOL Last Admin: 08/20/18 10:32 Dose: 12 units/kg/hr, 5.672 mls/hr Insulin Aspart (Novolog) 0 unit SC Q6 [facility]; Protocol Last Admin: 08/22/18 06:45 Dose: 2 units Insulin Glargine (Lantus) 15 unit SC Q12 [facility] Last Admin: 08/21/18 22:43 Dose: 15 units Lactobacillus Acidophilus (Bacid Acidophilus) 1 cap PEG Q12 [facility] Last Admin: 08/21/18 22:43 Dose: 1 cap Methimazole (Tapazole) 20 mg PO Q8 [facility] Last Admin: 08/22/18 06:45 Dose: 20 mg Multivitamins (Hexavitamin) 1 tab PEG DAILY [facility] Last Admin: 08/21/18 10:10 Dose: 1 tab Pantoprazole Sodium (Protonix Inj) 40 mg IVP Q12H [facility] Last Admin: 08/22/18 00:19 Dose: 40 mg Propranolol HCl (Inderal) 5 mg PEG TID [facility] Last Admin: 08/21/18 17:56 Dose: 5 mg Rosuvastatin Calcium (Crestor) 5 mg PO HS [facility] Last Admin: 08/21/18 22:43 Dose: 5 mg Vitamin A (Vitamin A & D Oint Ud Foilpak) 1 ea TOP BID [facility] Last Admin: 08/21/18 17:56 Dose: 1 ea Zolpidem Tartrate (Ambien) 5 mg PEG HS [facility] Last Admin: 08/21/18 22:42 Dose: 5 mg - Labs Labs: 08/22/18 06:32 08/22/18 06:30 PT 13.8 SECONDS (9.7-12.2) H 08/20/18 17:03 INR 1.3 08/20/18 17:03 APTT 39 SECONDS (21-34) H 08/20/18 17:03 - Constitutional Appears: No Acute Distress, Chronically Ill - Head Exam Head Exam: ATRAUMATIC, NORMOCEPHALIC - Eye Exam Eye Exam: Normal appearance. absent: Conjunctival injection, Scleral icterus - ENT Exam ENT Exam: Mucous Membranes Moist, Normal Oropharynx - Neck Exam Additional comments: tracheostomy tube in place with minimal serous drainage - Respiratory Exam Respiratory Exam: NORMAL BREATHING PATTERN. absent: Accessory Muscle Use, Respiratory Distress Additional comments: on mechanical ventilation SIMV mode - Cardiovascular Exam Cardiovascular Exam: RRR - GI/Abdominal Exam GI & Abdominal Exam: Soft. absent: Distended, Tenderness - Extremities Exam Extremities exam: Negative for: calf tenderness, pedal edema - Neurological Exam Neurological exam: Altered - Psychiatric Exam Psychiatric exam: Normal Affect, Normal Mood - Skin Skin Exam: Dry, Normal Color, Warm Assessment and Plan - Assessment and Plan (Free Text) Assessment: 52F with DVT and uterine bleed preventing further chemical anticoagulation NPO after midnight Plan for IVC filter tomorrow D/W Dr. Vicky Gan PGY3
[2018-08-22] MEDS: (Lantus) Insulin Glargine, Recombinant SC SCH ×2 (09:37→21:11)
[2018-08-22] MEDS: Lactobacillus Acidophilus 500 MU Cap PEG SCH ×2 (09:38→21:10)
[2018-08-22] MEDS: Bacitracin 500 Units/gm Oint Foilpak UD TOP SCH ×2 (09:38→18:15)
[2018-08-22] MEDS: Propranolol 5 mg Tab PEG SCH ×3 (09:38→18:16)
[2018-08-22] MEDS: Vitamins A & D Oint UD Foilpak TOP SCH ×2 (09:38→18:15)
[2018-08-22] MEDS: Multiple Vitamins Tab PEG SCH (09:38)
--- NOTE | 2018-08-22 09:51 | CP.PCM.PN ---
<Bhanu Villegas - Last Filed: 08/22/18 16:03> Subjective - Date & Time of Evaluation Date of Evaluation: 08/22/18 Time of Evaluation: 09:48 - Subjective Subjective: Hospitalist Service Pt seen and examined at bedside. Pt more arousable today active limb responses to verbal and physical stimuli, pt able to maintain eye conact. Unable to obtain 12 pt ROS - trach vented. Per nursing, no acute events overnight Objective - Vital Signs/Intake and Output Vital Signs (last 24 hours): Temp Pulse Resp BP Pulse Ox 97.7 F 97 H 16 127/76 100 08/22/18 08:00 08/22/18 08:00 08/22/18 08:00 08/22/18 08:00 08/22/18 08:00 Intake and Output: 08/22/18 08/22/18 06:59 18:59 Intake Total 630 180 Output Total 2 0 Balance 628 180 - Medications Medications: Current Medications Acetaminophen (Tylenol 650mg/20.3ml Solution Ud) 650 mg PEG Q6 PRN Last Admin: 08/18/18 02:10 Dose: 650 mg Acetylcysteine (Acetylcysteine 20%) 4 ml INH RQ6 [facility] Last Admin: 08/22/18 07:55 Dose: Not Given Albuterol/Ipratropium (Duoneb 3 Mg/0.5 Mg (3 Ml) Ud) 3 ml INH RQ6 [facility] Last Admin: 08/22/18 07:53 Dose: 3 ml Ascorbic Acid (Vitamin C 500 Mg Tab) 1,000 mg NG DAILY [facility] Last Admin: 08/22/18 09:38 Dose: 1,000 mg Bacitracin (Bacitracin) 1 ea TOP BID [facility] Last Admin: 08/22/18 09:38 Dose: 1 ea Diphenhydramine HCl (Benadryl) 50 mg PEG HS [facility] Last Admin: 08/21/18 22:50 Dose: Not Given Ergocalciferol (Drisdol 50,000 Intl Units Cap) 1 cap GT Q7D [facility] Stop: 10/06/18 19:16 Last Admin: 08/18/18 23:34 Dose: 1 cap Fluconazole (Diflucan) 100 mg PO DAILY [facility]; Protocol Stop: 08/29/18 23:59 Last Admin: 08/22/18 09:39 Dose: 100 mg Heparin Sodium/Sodium Chloride (Heparin 46453 Units/250ml 1/2 Normal Saline) 25,000 units in 250 mls @ 5.672 mls/hr IV .Q24H PRN; Protocol PRN Reason: ADJUST RATE PER PROTOCOL Last Admin: 08/20/18 10:32 Dose: 12 units/kg/hr, 5.672 mls/hr Insulin Aspart (Novolog) 0 unit SC Q6 [facility]O; Protocol Last Admin: 08/22/18 06:45 Dose: 2 units Insulin Glargine (Lantus) 15 unit SC Q12 [facility] Last Admin: 08/22/18 09:37 Dose: 15 units Lactobacillus Acidophilus (Bacid Acidophilus) 1 cap PEG Q12 [facility] Last Admin: 08/22/18 09:38 Dose: 1 cap Methimazole (Tapazole) 20 mg PO Q8 [facility] Last Admin: 08/22/18 06:45 Dose: 20 mg Multivitamins (Hexavitamin) 1 tab PEG DAILY [facility] Last Admin: 08/22/18 09:38 Dose: 1 tab Pantoprazole Sodium (Protonix Inj) 40 mg IVP Q12H [facility] Last Admin: 08/22/18 00:19 Dose: 40 mg Propranolol HCl (Inderal) 5 mg PEG TID [facility] Last Admin: 08/22/18 09:38 Dose: 5 mg Rosuvastatin Calcium (Crestor) 5 mg PO HS [facility] Last Admin: 08/21/18 22:43 Dose: 5 mg Vitamin A (Vitamin A & D Oint Ud Foilpak) 1 ea TOP BID [facility] Last Admin: 08/22/18 09:38 Dose: 1 ea Zolpidem Tartrate (Ambien) 5 mg PEG HS [facility] Last Admin: 08/21/18 22:42 Dose: 5 mg - Labs Labs: 08/22/18 06:32 08/22/18 06:30 PT 13.8 SECONDS (9.7-12.2) H 08/20/18 17:03 INR 1.3 08/20/18 17:03 APTT 39 SECONDS (21-34) H 08/20/18 17:03 - Additional Findings Additional findings: - Constitutional Appears: Cachectic, Chronically Ill - Eye Exam Eye Exam: absent: EOMI, Normal appearance, PERRL, Scleral icterus Additional comments: non purposeful movements - ENT Exam ENT Exam: Mucous Membranes Moist - Neck Exam Neck Exam: Full ROM. absent: Lymphadenopathy - Respiratory Exam Respiratory Exam: Clear to Ausculation Bilateral - Cardiovascular Exam Cardiovascular Exam: REGULAR RHYTHM - GI/Abdominal Exam GI & Abdominal Exam: Soft, Normal Bowel Sounds (PEG site clean dry and intact ) - Extremities Exam Extremities Exam: Full ROM. absent: Calf Tenderness, Pedal Edema - Back Exam Back Exam: NORMAL INSPECTION. absent: CVA tenderness (L), CVA tenderness (R) - Neurological Exam Neurological Exam: Awake. absent: Alert, CN II-XII Intact, Normal Gait, Oriented x3 Additional comments: GCS 9T; patient is on trach vent Assessment and Plan - Assessment and Plan (Free Text) Assessment: 52yo F originally admitted to the ICU for Septic shock 2/2 to PNA/UTI worsened by embolic stroke, cardiac arrest, and anoxic brain injury Septic Shock secondary to Pneumonia and Urinary Tract Infection; resolved * BP 85/55 , hold Propanolol if SBP <100 * 500ml NS IV bolus given / 30min * Infectious Disease (Dr. Brock) on case-->help appreciated * Fluconazole 100mg QD for 7 days 08/22-08/29 * Tmax 101F (08/07/18); last fever, no elevated white count * Patient is off pressors. Completed IV abx for aspiration pneumonia and on PO abx for latest urinary tract infection * 08/12/18 Blood cultur: no growth after 5 days X2 * 08/12/18 Urine Culture: VRE * 08/14/18: Urine culture Repeat No growth * Chest xray (08/18/18): left sided PICC likely terminates at the proximal right atrium. Tracheostomy tube. Mild pulmonary venous congestion. Small left pleural effusion. Dysfunctional Uterine bleeding -patient has thickened endometrial stripe and dysfunctional uterine bleeding -patient will ultimately need hysterectomy; however poor surgical candidate -re-consult OBGYN in the future; will monitor hgb -monitor number of pads of vaginal bleeding LLE DVT-resolved * Bilateral LE Dopplers Neg 08/21 * Heparin 5000u sc q12 * Vicky VascSx consulted for possible IVC Anoxic Encephalopathy * Code Blue 07/10 and 07/20 * Pt GCS 9 * CT head: no acute intracranial pathology. Age-related changes. no significant interval change. Acute Respiratory Failure leading to chronic respiratory failure Pulmonary Edema * Patient underwent tracheostomy 07/24/18 * Patient had tolerated trach collars last weekend thru Tuesday; however she has been on vent for the past three days. When I spoke with the Rn, patient is failed on weaning off vent with Respiratory therapy * Pulmonary (Dr. Lozada) on board-->assisting with weaning from trach on vent to trach collar * Nursing instructed to clean site of trach insertion * Duonebs 3ml Inh Q6H * Add Mucomyst to reduce secretions * Chest xray (08/18/18): left sided PICC likely terminates at the proximal right atrium. Tracheostomy tube. Mild pulmonary venous congestion. Small left pleural effusion-->given dose of Lasix 20mg IV X1 * Chest xray (08/19/18) appears improved compared to yesterday patient continues to fail daily CPAP-->trach collar weaning Ventricular Tachycardia w/ Thrombus * Code Blue 07/10: SVT==>VT required amiodarone, magnesium, one shock delivered * Code Blue 07/20: vtach s/p amiodarone, fluid, calcium gluconate, required compressions and shock * Cardiology Dr Francisco on case help appreciated * No cath needed. * Medical management * No chemical anticoagulation in light of bleeding episodes (patient has dysfunction uterine bleeding required blood transfusions; Ob has been consulted earlier in the hospitalization to inpatient workup)-->recommending heparin 5000 unit subq8 (DVT ppx dose) and aspirin 81mg PO daily; likely thrombus is organized a month of anticoagulation; risk is due to bleeding against stroke * Propranolol 5mg PO TID (hold SBP<100 and HR<60) * Heparin drip @ 12 * pending official report of repeat echo Urinary Tract Infection -last dose of today Zyvox 600mg PO BID for 7 days since Tuesday08/14/18 per ID for VRE to finish 08/21/18 * on Contact isolation Diabetes-->chronic * HgBA1c: 7.8 * Hypoglycemic protocol * Lantus 15 units subcutaneous at bedtime Q12 * Accuchecks Q6H * Aspirin 81mg PO daily * Crestor 5mg POqHS Acute on Chronic Renal Failure * Nephrology (Dr. Hyde) on board--> help appreciated * Patient will likely not need dialysis * mildly improving Hyperthyroidism? Low TSH, and Free T4 Thyroid Storm * Note Thyroid studies taken before amiodarone was given (please advised this is not amiodarone induced her levels were abnormal prior) * Patient does not have prior thyroid history * Endocrinology (Dr. Gayle) on board help appreciated * Thyroid U/S 07/16/18: showed heterogenous thydroid with multiple nodules bi laterally. She will need outpatient FNA Bx of the complex Left Lobe cyst (please see full report) * Methimazole 20mg PO TID * Propranolol 5 mg PO TID * Monitor LFTs Anemia Likely Secondary to Chronic Diseases * Iron normal, TIBC low, Iron Saturation normal, Ferritin normal * Stool occult blood negative * B12 normal * Folate Normal * Transfused 1 unit PRBC 07/22/18, 2 unit of PRBC 08/13/18 1 unit on 08/17/18 * Patient has been seen by OB Hospitalist; no contraindication to antico agulation * Case discussed with bull gang supervisor recommending against eliquis in light of bleeding; recommending for DVT ppx and aspirin * Start heparin drip to cover for DVT and thrombus * Discussed with for possible IVC filter-->he would like to think about it, he is against hysterectomy * Repeat venous doppler pending read 08/20: heparin drip was started yesterday 08/19; held last ; restarted 11am 08/21; will continue to monitor Vitamin D deficiency * 50,000 international units once a week (3 doses given so far) * Restart Vitamin D 50,000 IU once a week for 9 weeks (on 08/18/18) Prophylactic measure * Protonix 40mg PO BID * Lactobacillus 1 cap PO BID * MVI 1x/day * Vitamin C 1,000 NG 1x/day * s/p Trach and Peg * SCD on Right and contraindicated on Left due to DVT * Peg feedings * Change to Pulmcar 40cc/hr * patient had frequent BMs on prior formula; no diarrhea; we have spoken with dietary to change it * PICC Line 07/31/18 * Ambien 5mg POqHS to reset circadian rhythm so patient tries to sleep at night and remain awake during the day to work with PT/OT * Heparin drip @ 12 Disposition: * d/c benadryl, keep ambien * Luis Manuel LE dopplers show now DVT, unlikley need for IVC * restart sc heparin q12 * monitor bleeding from vaginal pads * f/u CXR Case discussed and seen with Dr. Leahy <Saira Leahy V - Last Filed: 08/23/18 09:39> Objective - Vital Signs/Intake and Output Vital Signs (last 24 hours): Temp Pulse Resp BP Pulse Ox 97.7 F 97 H 16 127/76 100 08/22/18 08:00 08/22/18 08:00 08/22/18 08:00 08/22/18 08:00 08/22/18 08:00 Intake and Output: 08/22/18 08/22/18 06:59 18:59 Intake Total 630 180 Output Total 2 0 Balance 628 180 - Medications Medications: Current Medications Acetaminophen (Tylenol 650mg/20.3ml Solution Ud) 650 mg PEG Q6 PRN Last Admin: 08/18/18 02:10 Dose: 650 mg Acetylcysteine (Acetylcysteine 20%) 4 ml INH RQ6 [facility] Last Admin: 08/22/18 13:57 Dose: Not Given Albuterol/Ipratropium (Duoneb 3 Mg/0.5 Mg (3 Ml) Ud) 3 ml INH RQ6 [facility] Last Admin: 08/22/18 13:57 Dose: Not Given Ascorbic Acid (Vitamin C 500 Mg Tab) 1,000 mg NG DAILY [facility] Last Admin: 08/22/18 09:38 Dose: 1,000 mg Bacitracin (Bacitracin) 1 ea TOP BID [facility] Last Admin: 08/22/18 09:38 Dose: 1 ea Diphenhydramine HCl (Benadryl) 50 mg PEG HS [facility] Last Admin: 08/21/18 22:50 Dose: Not Given Ergocalciferol (Drisdol 50,000 Intl Units Cap) 1 cap GT Q7D [facility] Stop: 10/06/18 19:16 Last Admin: 08/18/18 23:34 Dose: 1 cap Fluconazole (Diflucan) 100 mg PO DAILY [facility]; Protocol Stop: 08/29/18 23:59 Last Admin: 08/22/18 09:39 Dose: 100 mg Heparin Sodium (Porcine) (Heparin) 5,000 units SC Q12 [facility] Sodium Chloride (Sodium Chloride 0.9%) 500 mls @ 1,000 mls/hr IV .Q30M [facility] Stop: 08/22/18 15:14 Insulin Aspart (Novolog) 0 unit SC Q6 [facility]; Protocol Last Admin: 08/22/18 12:05 Dose: Not Given Insulin Glargine (Lantus) 15 unit SC Q12 [facility] Last Admin: 08/22/18 09:37 Dose: 15 units Lactobacillus Acidophilus (Bacid Acidophilus) 1 cap PEG Q12 [facility] Last Admin: 08/22/18 09:38 Dose: 1 cap Methimazole (Tapazole) 20 mg PO Q8 [facility] Last Admin: 08/22/18 13:54 Dose: 20 mg Multivitamins (Hexavitamin) 1 tab PEG DAILY [facility] Last Admin: 08/22/18 09:38 Dose: 1 tab Pantoprazole Sodium (Protonix Inj) 40 mg IVP Q12H [facility] Last Admin: 08/22/18 12:05 Dose: 40 mg Propranolol HCl (Inderal) 5 mg PEG TID [facility] Last Admin: 08/22/18 13:54 Dose: 5 mg Rosuvastatin Calcium (Crestor) 5 mg PO HS [facility] Last Admin: 08/21/18 22:43 Dose: 5 mg Vitamin A (Vitamin A & D Oint Ud Foilpak) 1 ea TOP BID [facility] Last Admin: 08/22/18 09:38 Dose: 1 ea Zolpidem Tartrate (Ambien) 5 mg PEG HS [facility] Last Admin: 08/21/18 22:42 Dose: 5 mg - Labs Labs: 08/22/18 06:32 08/22/18 06:30 PT 13.8 SECONDS (9.7-12.2) H 08/20/18 17:03 INR 1.3 08/20/18 17:03 APTT 39 SECONDS (21-34) H 08/20/18 17:03 Assessment and Plan (1) Septic shock Status: Acute (2) Acute respiratory failure Status: Acute (3) Urinary tract infection Status: Acute (4) Acute renal failure Status: Acute (5) Aspiration pneumonia Status: Acute (6) Diabetes mellitus Status: Chronic (7) Ventricular arrhythmia Status: Acute (8) Hyperthyroidism Status: Acute (9) Anemia Status: Acute (10) Prophylactic measure Status: Acute Attending/Attestation - Attestation I have personally seen and examined this patient.: Yes I have fully participated in the care of the patient.: Yes I have reviewed all pertinent clinical information, including history, physical exam and plan: Yes Notes (Text): This is late computer entry for 08/22/18. Patient seen, examined, and case discussed with day-time resident. Patient seen at bedside this afternoon. No overnight events. Patient is confused at bedside. I spoke with respiratory therapist this afternoon, patient was able to follow commands a little bit this morning but is confused now as try to assess directions. Patient only received ambien last night. Patient is on Flucazole for yeast in UTI. patient is off anticoagulation given dysfunctional uterine bleeding. Patient has completed one month of eliquis in attempts to treatment of DVT and thrombus in heart. Anticoagulation d/c given worsening vaginal bleeding. Have consulted vascular surgery to see if patient is a candidate for IVC filter since she has completed one month of anticoagulation and there is resolution of DVT on repeat US. Third echocardiogram not officially read. Hgb 8s. Patient has had scant vaginal bleeding today per nursing; only about one pad. Resident has spoken with ob-strand and binder controller communication center operator regarding hysterectomy recommending if an acute drop by 3-4. Respiratory therapy attempting to work with patient however remains on vent. 1) Septic Shock secondary to Pneumonia and Urinary Tract Infection Assessment/Plan * Infectious Disease (Dr. Brock) on case-->help appreciated * Tmax 101F (08/07/18); last fever, no elevated white count * Patient is off pressors. Completed IV abx for aspiration pneumonia and on PO abx for latest urinary tract infection * 08/12/18 Blood cultur: no growth after 5 days X2 * 08/12/18 Urine Culture: VRE * 08/14/18: Urine culture Repeat No growth * patient is on Zyvox 600mg PO BID (started on 08/14/18): ID has recommended for 7 days total * Chest xray (08/18/18): left sided PICC likely terminates at the proximal right atrium. Tracheostomy tube. Mild pulmonary venous congestion. Small left pleural effusion. 2) Anoxic Encephalopathy Assessment/Plan * Code Blue 07/10 and 07/20 * Patient prior knowledge of 5 languages per but does not follow commands; I did speak with the and as for him to speak with her and does not follow with him. Later with his nurse, Martin Rider patient noteably more agitated when she is having frequent bms or needs to be washed and is unable to communicate her needs because of limited of language. * I did speak with Dr. Pham today in regards to reset patient's sleep wake cycle--> her pattern tends to be she is agitated at night when her is not present (her reliable social cue) receives benzo/haldol/seroquel and becomes very lethargic in the morning which presents rehab from working with her. We have planned for Benadryl 50mg via peg and ambien 5mg POqHS to reset her sleep wake cycle. We will increase benadryl dose or add Ambien 5mg POqHS if does not hold patient at night. Note Patient is connected to vent. She is unable to get off vent keeps failing trial for the past 3 days. She is unable to get the MRI because the vent does not fit in the MRI. * CT head: no acute intracranial pathology. Age-related changes. no significant interval change. 3) Acute Respiratory Failure Pulmonary Edema Assessment/Plan * Patient underwent tracheostomy 07/24/18 * Patient had tolerated trach collars last weekend thru Tuesday; however she has been on vent for the past three days. When I spoke with the Rn, patient is failed on weaning off vent with Respiratory therapy * Pulmonary (Dr. Lozada) on board-->assisting with weaning from trach on vent to trach collar * Duonebs 3ml Inh Q6H * Add Mucomyst to reduce secretions * Chest xray (08/18/18): left sided PICC likely terminates at the proximal right atrium. Tracheostomy tube. Mild pulmonary venous congestion. Small left pleural effusion-->given dose of Lasix 20mg IV X1 4) Ventricular Tachycardia NSTEMI Apical Thrombus LLE DVT Assessment/Plan * Code Blue 07/10: SVT==>VT required amiodarone, magnesium, one shock delivered * Code Blue 07/20: vtach s/p amiodarone, fluid, calcium gluconate, required compressions and shock * Cardiology Dr Francisco on case help appreciated * No cath needed. * Medical management * No chemical anticoagulation in light of bleeding episodes (patient has dysfunction uterine bleeding required blood transfusions; Ob has been consulted earlier in the hospitalization to inpatient workup)-->recommending heparin 5000 unit subq8 (DVT ppx dose) and aspirin 81mg PO daily; likely thrombus is organized a month of anticoagulation; risk is due to bleeding against stroke * Propranolol 5mg PO TID (hold SBP<100 and HR<60) * Eliquis d/c bleeding and anemia-->dvt ppx and aspirin * pending official report of repeat echo 4) Urinary Tract Infection Assessment/Plan * Zyvox 600mg PO BID for 7 days since Tuesday08/14/18 per ID for VRE * on Contact isolation 5) Diabetes-->chronic Assessment/Plan * HgBA1c: 7.8 * Hypoglycemic protocol * Lantus 15 units subcutaneous at bedtime Q12 * Accuchecks Q6H * Aspirin 81mg PO daily * Crestor 5mg POqHS 6) Acute on Chronic Renal Failure Assessment/Plan * Nephrology (Dr. Hyde) on board--> help appreciated * Patient will likely not need dialysis * mildly improving 7) Hyperthyroidism? Low TSH, and Free T4 Thyroid Storm Assessment/Plan * Note Thyroid studies taken before amiodarone was given (please advised this is not amiodarone induced her levels were abnormal prior) * Patient does not have prior thyroid history * Endocrinology (Dr. 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 She will need outpatient FNA Bx of the complex Left Lobe cyst (please see full report) * Methimazole 20mg PO TID * Propranolol 5 mg PO TID * Monitor LFTs 8) Anemia Likely Secondary to Chronic Diseases Assessment/Plan * Iron normal, TIBC low, Iron Saturation normal, Ferritin normal * Stool occult blood negative * B12 normal * Folate Normal * Transfused 1 unit PRBC 07/22/18, 2 unit of PRBC 08/13/18 1 unit on 08/17/18 * Patient has been seen by OB Hospitalist; no contraindication to anticoagulation * Case discussed with bull gang supervisor recommending against eliquis in light of bleeding; recommending for DVT ppx and aspirin * Start heparin drip to cover for DVT and thrombus * Discussed with for possible IVC filter-->he would like to think about it, he is against hysterectomy * Repeat venous doppler pending read 9) Transminitis-->improving * Likely secondary to Sepsis and Amiodarone (which was discontinued) * Hepatitis serology negative * Normalized 10) Vitamin D deficiency Assessment plan * 50,000 international units once a week (3 doses given so far) * Restart Vitamin D 50,000 IU once a week for 9 weeks (on 08/18/18) 11) Thrombocytopenia-->resolved Assessment plan * HIT/RUSTY were negative 12) 13 mm Left Adrenal Nodule * As seen on CT Chest 07/16/18 * Will need outpatient follow up for cross sectional imaging for better characterization 13) Hypernatremia-->resolved * Free water 250 ml 3x/day via OGT * Na now normal 14) LLE DVT * Eliquis 5 mg PO BID d/c 08/17 * Acute thrombosis of the left common femoral and femoral veins with severe reduction of the venous return on 07/18/18 venous doppler * Patient had completed one month on Eliquis; however she continues to have dysfunction uterine bleeding; cardiology is recommending against eliquis for thrombus given bleeding risk * Will repeat doppler to see if DVT has resolved; may need to consult vascular surgery for IVC filter * off anticoagulation in light of abnormal vaginal bleeding 15) Deconditioning * Patient needs continued PT/OT * I did speak with Dr. Pham 08/18 in regards to reset patient's sleep wake cycle--> her pattern tends to be she is agitated at night when her is not present (her reliable social cue) receives benzo/haldol/seroquel and becomes very lethargic in the morning which presents rehab from working with her. We have planned for Benadryl 50mg via peg and ambien 5mg POqHS to reset her sleep wake cycle. We will increase benadryl dose or add Ambien 5mg POqHS if does not hold patient at night. Note Patient is connected to vent. She is unable to get off vent keeps failing trial for the past 3 days. She is unable to get the MRI because the vent does not fit in the MRI. * Respiratory attempting to wean but remains on vent 16) Prophylactic measure * Protonix 40mg PO BID * Lactobacillus 1 cap PO BID * MVI 1x/day * Vitamin C 1,000 NG 1x/day * s/p Trach and Peg * SCD on Right and contraindicated on Left due to DVT * Peg feedings * Change to Pulmcar 40cc/hr * patient had frequent BMs on prior formula; no diarrhea; we have spoken with dietary to change it on 08/19/18 * PICC Line 07/31/18 * Note: speak to patient in alexis to assess neurologic status-->she does follow sometimes * c/w Ambien 5mg POqHS to reset circadian rhythm so patient tries to sleep at night and remain awake during the day to work with PT/OT Disposition: * off anticoagulation given H/H drop suspected to dysfunctional uterine bleeding; if there is a drop by 3-4-->may need hysterectomy * Will consult vascular surgery to see if patient is candidate for IVC filter, since has only completed 1 month of anticoagulation for LLE DVT though US resolution of DVT * per cardio, dvt ppx/aspirin for cardiac thrombus chemical anticoagulation stopped given h/h drops * pallative care consult for goals of care
[2018-08-22] MEDS ORDERED: Fluconazole IV 200mg/100 ml NS 100 MG in Premixed IV 1 EA IVPB SCH (10:00)
[2018-08-22] MEDS ORDERED: Sodium Chloride 0.9% 500 ML IV SCH (14:45)
--- NOTE | 2018-08-22 15:26 | RAD ---
Date of service: 08/22/2018 HISTORY: Pulmonary congestion. COMPARISON: 08/19/2018. FINDINGS: LUNGS: Evolving right lower lobe infiltrate likely acute pneumonia. PLEURA: No significant pleural effusion identified, no pneumothorax apparent. CARDIOVASCULAR: No radiographic findings to suggest acute or significant cardiovascular disease. Atherosclerotic calcifications identified primarily aortic arch. OSSEOUS STRUCTURES: No significant abnormalities. VISUALIZED UPPER ABDOMEN: Normal. OTHER FINDINGS: Stable, satisfactory position of tracheostomy device. IMPRESSION: New right lower lobe infiltrate likely pneumonia
[2018-08-23] MEDS: Albuterol-Ipratrop 3 mg / 0.5 (3 ml) UD INH SCH ×4 (01:43→19:59)
[2018-08-23] MEDS: Acetylcysteine 20% Inhal Soln (4ml) INH SCH ×4 (01:43→19:59)
[2018-08-23] MEDS ORDERED: Sodium Chloride 0.9% 500 ML IV ONE ×2 (04:18→10:30)
[2018-08-23] MEDS ORDERED: Dextrose 50% SYRINGE Inj (50 ml) ONE (05:33)
[2018-08-23] MEDS ORDERED: Dextrose 50% SYRINGE Inj (50 ml) IV STA (06:03)
[2018-08-23 06:28] LABS: BASO % 0.4 % (0.0-2.0); EOS # 0.3 K/uL (0.0-0.7); EOS % 2.8 % (0.0-4.0); HEMOGLOBIN 7.5 g/dL (11.0-16.0); LYMPH # 2.1 K/uL (1.0-4.3); LYMPH % 21.1 % (20.0-40.0); MEAN CELL VOLUME 90.7 fL (81.0-99.0); MEAN CORPUSCULAR HEMOGLOBIN 29.8 pg (27.0-31.0); MEAN CORPUSCULAR HGB CONC 32.9 g/dL (33.0-37.0); MEAN PLATELET VOLUME 8.1 fL (7.2-11.7); MONO # 0.7 K/uL (0.0-0.8); MONO % 6.8 % (0.0-10.0); NEUT # 6.9 K/uL (1.8-7.0); NEUT % 68.9 % (50.0-75.0); RBC 2.52 Mil/uL (3.80-5.20); RED CELL DISTRIBUTION WIDTH 15.9 % (11.5-14.5)
[2018-08-23 06:34] LABS: ALB/GLOB RATIO 0.8 (1.0-2.1); ALBUMIN 2.4 g/dL (3.5-5.0); ALT/SGPT 43 U/L (9-52); AST/SGOT 31 U/L (14-36); BLOOD UREA NITROGEN 38 mg/dL (7-17); CALCIUM 7.5 mg/dl (8.6-10.4); GFR NON-AFRICAN AMERICAN 58
[2018-08-23] MEDS: (Novolog) Insulin Aspart, Recombinant 100 u/ml 10 ml vial SC SCH ×4 (06:41→17:30)
[2018-08-23 07:25] LABS: INR 1.3; PROTHROMBIN TIME 14.7 SECONDS (9.7-12.2)
--- NOTE | 2018-08-23 07:57 | CP.PCM.PN ---
<Bhanu Villegas - Last Filed: 08/23/18 13:22> Subjective - Date & Time of Evaluation Date of Evaluation: 08/23/18 Time of Evaluation: 07:57 - Subjective Subjective: Hospitalist Service Pt seen and examined at bedside, Pt underwent successful IVC filter today. Events overnight: hypotension - .5L NS bolus given, Hypoglycemia - Insulin held D50 amp given Objective - Vital Signs/Intake and Output Vital Signs (last 24 hours): Temp Pulse Resp BP Pulse Ox 97.9 F 72 14 83/42 L 100 08/23/18 04:00 08/23/18 04:00 08/23/18 04:00 08/23/18 04:00 08/23/18 04:00 Intake and Output: 08/23/18 08/23/18 06:59 18:59 Intake Total 740 Output Total 2 Balance 738 - Medications Medications: Current Medications Acetaminophen (Tylenol 650mg/20.3ml Solution Ud) 650 mg PEG Q6 PRN Last Admin: 08/18/18 02:10 Dose: 650 mg Acetylcysteine (Acetylcysteine 20%) 4 ml INH RQ6 [facility] Last Admin: 08/23/18 07:47 Dose: 4 ml Albuterol/Ipratropium (Duoneb 3 Mg/0.5 Mg (3 Ml) Ud) 3 ml INH RQ6 [facility] Last Admin: 08/23/18 07:47 Dose: 3 ml Ascorbic Acid (Vitamin C 500 Mg Tab) 1,000 mg NG DAILY [facility] Last Admin: 08/22/18 09:38 Dose: 1,000 mg Bacitracin (Bacitracin) 1 ea TOP BID [facility] Last Admin: 08/22/18 18:15 Dose: 1 ea Diphenhydramine HCl (Benadryl) 50 mg PEG HS [facility] Last Admin: 08/22/18 21:53 Dose: 50 mg Ergocalciferol (Drisdol 50,000 Intl Units Cap) 1 cap GT Q7D [facility] Stop: 10/06/18 19:16 Last Admin: 08/18/18 23:34 Dose: 1 cap Fluconazole (Diflucan) 100 mg PO DAILY [facility]; Protocol Stop: 08/29/18 23:59 Last Admin: 08/22/18 09:39 Dose: 100 mg Heparin Sodium (Porcine) (Heparin) 5,000 units SC Q12 [facility] Last Admin: 08/22/18 21:10 Dose: 5,000 units Insulin Aspart (Novolog) 0 unit SC Q6 [facility]; Protocol Last Admin: 08/23/18 06:41 Dose: Not Given Insulin Glargine (Lantus) 15 unit SC Q12 [facility] Last Admin: 08/22/18 21:11 Dose: 15 units Lactobacillus Acidophilus (Bacid Acidophilus) 1 cap PEG Q12 [facility] Last Admin: 08/22/18 21:10 Dose: 1 cap Methimazole (Tapazole) 20 mg PO Q8 [facility] Last Admin: 08/23/18 06:42 Dose: Not Given Multivitamins (Hexavitamin) 1 tab PEG DAILY [facility] Last Admin: 08/22/18 09:38 Dose: 1 tab Pantoprazole Sodium (Protonix Inj) 40 mg IVP Q12H [facility] Last Admin: 08/23/18 00:00 Dose: 40 mg Propranolol HCl (Inderal) 5 mg PEG TID [facility] Last Admin: 08/22/18 18:16 Dose: Not Given Rosuvastatin Calcium (Crestor) 5 mg PO HS [facility] Last Admin: 08/22/18 21:10 Dose: 5 mg Vitamin A (Vitamin A & D Oint Ud Foilpak) 1 ea TOP BID [facility] Last Admin: 08/22/18 18:15 Dose: 1 ea Zolpidem Tartrate (Ambien) 5 mg PEG HS [facility] Last Admin: 08/22/18 21:10 Dose: 5 mg - Labs Labs: 08/23/18 05:52 08/23/18 05:53 PT 14.7 SECONDS (9.7-12.2) H 08/23/18 05:52 INR 1.3 08/23/18 05:52 APTT 28 SECONDS (21-34) D 08/23/18 05:52 - Additional Findings Additional findings: - Constitutional Appears: Cachectic, Chronically Ill - Eye Exam Eye Exam: absent: EOMI, Normal appearance, PERRL, Scleral icterus Additional comments: non purposeful movements - ENT Exam ENT Exam: Mucous Membranes Moist - Neck Exam Neck Exam: Full ROM. absent: Lymphadenopathy - Respiratory Exam Respiratory Exam: Clear to Ausculation Bilateral - Cardiovascular Exam Cardiovascular Exam: REGULAR RHYTHM - GI/Abdominal Exam GI & Abdominal Exam: Soft, Normal Bowel Sounds (PEG site clean dry and intact ) - Extremities Exam Extremities Exam: Full ROM. absent: Calf Tenderness, Pedal Edema - Back Exam Back Exam: NORMAL INSPECTION. absent: CVA tenderness (L), CVA tenderness (R) - Neurological Exam Neurological Exam: Awake. absent: Alert, CN II-XII Intact, Normal Gait, Oriented x3 Additional comments: GCS 9T; patient is on trach vent Assessment and Plan - Assessment and Plan (Free Text) Assessment: 52yo F originally admitted to the ICU for Septic shock 2/2 to PNA/UTI worsened by embolic stroke, cardiac arrest, and anoxic brain injury Septic Shock secondary to Pneumonia and Urinary Tract Infection * BP 120/80 now, hold propanalol as per parameters * x2 500ml NS IV bolus given / 30min * Infectious Disease (Dr. Brock) on case-->help appreciated * Fluconazole 100mg QD for 7 days 08/22-08/29 * Merrem 500mg q8 IVPB * Tmax 101F (08/07/18); last fever, no elevated white count * Patient is off pressors. Completed IV abx for aspiration pneumonia and on PO abx for latest urinary tract infection * f/u repeat blood cultures * CXR 08/23 new RLL infiltrate * Trach Sputum shows Gram neg Rods - pending sensitivity Dysfunctional Uterine bleeding -patient has thickened endometrial stripe and dysfunctional uterine bleeding -patient will ultimately need hysterectomy; however poor surgical candidate -re-consult OBGYN in the future; will monitor hgb -monitor number of pads of vaginal bleeding -holding heparin -Transfused 1 unit of PRBCs LLE DVT * Bilateral LE Dopplers Neg 08/21 * Heparin 5000u sc q12 held * unable to anticoagulate due to vaginal bleeding * Vicky VascSx : IVC today 08/14 Anoxic Encephalopathy * Code Blue 07/10 and 07/20 * Pt GCS 9 * CT head: no acute intracranial pathology. Age-related changes. no significant interval change. * Given 1g IVP Morphine post op agitation * Ativan .5mg IV q6 x2 total doses PRN Acute Respiratory Failure leading to chronic respiratory failure Pulmonary Edema * Patient underwent tracheostomy 07/24/18 * Patient had tolerated trach collars last weekend thru Tuesday; however she has been on vent for the past three days. When I spoke with the Rn, patient is failed on weaning off vent with Respiratory therapy * Pulmonary (Dr. Lozada) on board-->assisting with weaning from trach on vent to trach collar * Nursing instructed to clean site of trach insertion * Duonebs 3ml Inh Q6H * Add Mucomyst to reduce secretions * 08/22 CXR RLL new infiltrates patient continues to fail daily CPAP-->trach collar weaning Ventricular Tachycardia w/ Thrombus * Code Blue 07/10: SVT==>VT required amiodarone, magnesium, one shock delivered * Code Blue 07/20: vtach s/p amiodarone, fluid, calcium gluconate, required compressions and shock * Cardiology Dr Francisco on case help appreciated * No cath needed. * Medical management * No chemical anticoagulation in light of bleeding episodes (patient has dysfunction uterine bleeding required blood transfusions; Ob has been consulted earlier in the hospitalization to inpatient workup)-->recommending heparin 5000 unit subq8 (DVT ppx dose) and aspirin 81mg PO daily; likely thrombus is organized a month of anticoagulation; risk is due to bleeding against stroke * Propranolol held * Heparin held * pending official report of repeat echo Diabetes-->chronic * Glucose dropped to 41, held insulin d50 amp given * Novolog sc per protocol * HgBA1c: 7.8 * Lantus held * Hypoglycemic protocol * Accuchecks Q6H * Aspirin 81mg PO daily * Crestor 5mg POqHS Acute on Chronic Renal Failure * Nephrology (Dr. Hyde) on board--> help appreciated * Patient will likely not need dialysis * mildly improving Hyperthyroidism? Low TSH, and Free T4 Thyroid Storm * Note Thyroid studies taken before amiodarone was given (please advised this is not amiodarone induced her levels were abnormal prior) * Patient does not have prior thyroid history * Endocrinology (Dr. 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 She will need outpatient FNA Bx of the complex Left Lobe cyst (please see full report) * Methimazole 20mg PO TID * Propranolol 5 mg PO TID * Monitor LFTs Anemia Likely Secondary to Chronic Diseases * Iron normal, TIBC low, Iron Saturation normal, Ferritin normal * Stool occult blood negative * B12 normal * Folate Normal * Transfused 1 unit PRBC 07/22/18, 2 unit of PRBC 08/13/18 1 unit on 08/17/18 * Patient has been seen by OB Hospitalist; no contraindication to anticoagulation * Case discussed with medical administrative recommending against eliquis in light of bleeding; recommending for DVT ppx and aspirin * Start heparin drip to cover for DVT and thrombus * Discussed with for possible IVC filter-->he would like to think about it, he is against hysterectomy * Repeat venous doppler pending read 08/20: heparin drip was started yesterday 08/19; held last ; restarted 11a08/21; will continue to monitor Vitamin D deficiency * 50,000 international units once a week (3 doses given so far) * Restart Vitamin D 50,000 IU once a week for 9 weeks (on 08/18/18) Prophylactic measure * IVC filter in 08/23 * Protonix 40mg PO BID * Lactobacillus 1 cap PO BID * Vitamin C 1,000 NG 1x/day * s/p Trach and Peg * Bilateral SCDs * Peg feedings * Change to Pulmcar 40cc/hr * patient had frequent BMs on prior formula; no diarrhea; we have spoken with dietary to change it * PICC Line 07/31/18 * Ambien 5mg POqHS to reset circadian rhythm so patient tries to sleep at night and remain awake during the day to work with PT/OT * Heparin held Disposition: * IVC filter in 08/23 * transfused 1 unit of PRBC * Hold Propanolol * Luis Manuel LE dopplers show now DVT * hold heparin * monitor bleeding from vaginal pads * f/u CXR Case discussed and seen with Dr. Leahy <Saira Leahy V - Last Filed: 08/23/18 23:14> Objective - Vital Signs/Intake and Output Vital Signs (last 24 hours): Temp Pulse Resp BP Pulse Ox 97.5 F L 118 H 14 133/78 100 08/23/18 20:00 08/23/18 20:00 08/23/18 20:00 08/23/18 20:00 08/23/18 20:00 Intake and Output: 08/23/18 08/24/18 18:59 06:59 Intake Total 600 1140 Output Total 300 Balance 600 840 - Medications Medications: Current Medications Acetaminophen (Tylenol 650mg/20.3ml Solution Ud) 650 mg PEG Q6 PRN Last Admin: 08/18/18 02:10 Dose: 650 mg Acetylcysteine (Acetylcysteine 20%) 4 ml INH RQ6 [facility] Last Admin: 08/23/18 19:59 Dose: 4 ml Albuterol/Ipratropium (Duoneb 3 Mg/0.5 Mg (3 Ml) Ud) 3 ml INH RQ6 [facility] Last Admin: 08/23/18 19:59 Dose: 3 ml Ascorbic Acid (Vitamin C 500 Mg Tab) 1,000 mg NG DAILY [facility] Last Admin: 08/23/18 13:17 Dose: Not Given Bacitracin (Bacitracin) 1 ea TOP BID [facility] Last Admin: 08/23/18 17:29 Dose: 1 ea Dextrose (Dextrose 50% Inj) 0 ml IVP .STAT PRN; Protocol PRN Reason: Hypoglycemia Protocol Dextrose (Glutose 15) 0 gm PO .ONCE PRN; Protocol PRN Reason: Hypoglycemia Protocol Ergocalciferol (Drisdol 50,000 Intl Units Cap) 1 cap GT Q7D [facility] Stop: 10/06/18 19:16 Last Admin: 08/18/18 23:34 Dose: 1 cap Glucagon (Glucagen Diagnostic Kit) 0 mg IM .STAT PRN; Protocol PRN Reason: Hypoglycemia Protocol Heparin Sodium (Porcine) (Heparin) 5,000 units SC Q12 [facility] Last Admin: 08/23/18 21:19 Dose: 5,000 units Meropenem 500 mg/ Sodium (Chloride) 100 mls @ 100 mls/hr IVPB Q8H [facility] Last Admin: 08/23/18 21:20 Dose: 100 mls/hr Vancomycin HCl 1 gm/ Sodium (Chloride) 250 mls @ 166.7 mls/hr IVPB Q12H [facility]; Protocol Last Admin: 08/23/18 15:11 Dose: 166.7 mls/hr Dextrose (Dextrose 5% In Water 1000 Ml) 1,000 mls @ 0 mls/hr IV .Q0M PRN; Protocol PRN Reason: Hypoglycemia Protocol Micafungin Sodium 100 mg/ (Sodium Chloride) 100 mls @ 100 mls/hr IV Q24H [facility]; Protocol Last Admin: 08/23/18 21:20 Dose: 100 mls/hr Insulin Aspart (Novolog) 0 unit SC Q6 [facility]; Protocol Last Admin: 08/23/18 17:30 Dose: Not Given Insulin Glargine (Lantus) 15 unit SC Q12 [facility] Last Admin: 08/23/18 10:39 Dose: Not Given Lactobacillus Acidophilus (Bacid Acidophilus) 1 cap PEG Q12 [facility] Last Admin: 08/23/18 21:19 Dose: 1 cap Methimazole (Tapazole) 20 mg PO Q8 [facility] Last Admin: 08/23/18 21:20 Dose: 20 mg Multivitamins (Hexavitamin) 1 tab PEG DAILY [facility] Last Admin: 08/23/18 13:21 Dose: Not Given Pantoprazole Sodium (Protonix Inj) 40 mg IVP Q12H [facility] Last Admin: 08/23/18 13:17 Dose: 40 mg Propranolol HCl (Inderal) 5 mg PEG TID [facility] Last Admin: 08/22/18 18:16 Dose: Not Given Rosuvastatin Calcium (Crestor) 5 mg PO HS [facility] Last Admin: 08/23/18 21:26 Dose: 5 mg Vitamin A (Vitamin A & D Oint Ud Foilpak) 1 ea TOP BID [facility] Last Admin: 08/23/18 17:29 Dose: 1 ea Zolpidem Tartrate (Ambien) 5 mg PEG HS [facility] Last Admin: 08/23/18 21:19 Dose: 5 mg - Labs Labs: 08/23/18 05:52 08/23/18 05:53 PT 14.7 SECONDS (9.7-12.2) H 08/23/18 05:52 INR 1.3 08/23/18 05:52 APTT 28 SECONDS (21-34) D 08/23/18 05:52 Assessment and Plan (1) Septic shock Status: Acute (2) Acute respiratory failure Status: Acute (3) Urinary tract infection Status: Acute (4) Acute renal failure Status: Acute (5) Aspiration pneumonia Status: Acute (6) Diabetes mellitus Status: Chronic (7) Ventricular arrhythmia Status: Acute (8) Hyperthyroidism Status: Acute (9) Anemia Status: Acute (10) Prophylactic measure Status: Acute Attending/Attestation - Attestation I have personally seen and examined this patient.: Yes I have fully participated in the care of the patient.: Yes I have reviewed all pertinent clinical information, including history, physical exam and plan: Yes Notes (Text): Patient seen, examined, and case discussed with medical technologist clinical. Patient underwent IVC filter by surgery team given prior hx of DVT. Patient noted to be agitated post procedure. Patient require dose of Morphine due to suspected pain and dose of Ativan. Patient's sputum culture from trach noted for gram negative jerod. Resident has spoken with ID, restart Meropenem and I have started Vancomycin given concern for MRSA; chest xray from 08/22/18 noted for new right lower lobe infiltrate pneumonia. Patient underwent bronchoscopy, noted for findings appearing like yeast per visualization, recommended for antifungal; discussed with ID who will start Micafungin. Contact isolation d/c ICU given completion of VRE/Zyvox for UTI. Chest xray (08/23/18): improviing bibasilar airspace disease w mild residual bilaterally Patient given fluid bolus overnight; propranolol d/c secondary to hypotension; given 2 doses of Albumin this morning. Given hemoglobin given 1 unit of PRBC post OR. Lantus was held this morning because of hypoglycemia, have made [id number]; and held lantus. Feedings resumed post OR. 1) Septic Shock secondary to Pneumonia and Urinary Tract Infection New Pneumonia Assessment/Plan * Infectious Disease (Dr. Brock) on board-->help appreciated * Trach Aspirate: r gram negative jerod * s/p bronchoscopy (08/23/18) * Possible fungal infection * Chest xray from 08/22/18 noted for new right lower lobe infiltrate pneumonia. * Chest xray (08/23/18): improviing bibasilar airspace disease w mild residual bilaterally * Start Meropenem 500 gram IV Q 8H (active since 08/23/18) * Start Vancomycin 1 gram IV Q12H (active since 08/23/18) * Start Micafungin 100mg IV Q24H (active since 08/23/18) 2) Anoxic Encephalopathy Assessment/Plan * Code Blue 07/10 and 07/20 * Patient prior knowledge of 5 languages per but does not follow commands; I did speak with the and as for him to speak with her and does not follow with him. Later with his nurse, Martin Gulisetteminerva patient noteably more agitated when she is having frequent bms or needs to be washed and is unable to communicate her needs because of limited of language. * I did speak with Dr. Pham last weekin regards to reset patient's sleep wake cycle--> her pattern tends to be she is agitated at night when her is not present (her reliable social cue) receives benzo/haldol/seroquel and becomes very lethargic in the morning which presents rehab from working with her. Patient noted per nursing staff to sleep with Ambien alone. D/c Benadryl. Unable to get MRI given she remains on trach on vent. * CT head: no acute intracranial pathology. Age-related changes. no significant interval change. 3) Acute Respiratory Failure Pulmonary Edema Assessment/Plan * Patient underwent tracheostomy 07/24/18 * Patient had tolerated trach collars last weekend thru Tuesday 08/14; however she has been on vent to trach. Patient has been unable to be weaned off v ent. * Pulmonary (Dr. Lozada) on board-->assisting with weaning from trach on vent to trach collar * Duonebs 3ml Inh Q6H * Add Mucomyst to reduce secretions * Chest xray from 08/22/18 noted for new right lower lobe infiltrate pneumonia. * Chest xray (08/23/18): improviing bibasilar airspace disease w mild residual bilaterally 4) Ventricular Tachycardia NSTEMI Apical Thrombus LLE DVT Assessment/Plan * Code Blue 07/10: SVT==>VT required amiodarone, magnesium, one shock delivered * Code Blue 07/20: vtach s/p amiodarone, fluid, calcium gluconate, required compressions and shock * Cardiology Dr Francisco on case help appreciated * No cath needed. * Medical management * No chemical anticoagulation in light of bleeding episodes (patient has dysfunction uterine bleeding required blood transfusions; Ob has been consulted earlier in the hospitalization to inpatient workup)-->recommending heparin 5000 unit subq8 (DVT ppx dose) and aspirin 81mg PO daily; likely thrombus is organized a month of anticoagulation; risk is due to bleeding against stroke * d/c Propranolol 5mg PO TID (hold SBP<100 and HR<60) * Eliquis d/c bleeding and anemia-->dvt ppx and aspirin * Echo discussed with Dr. Francisco, patient does have residual clot-->aware we cannot anticoagulate given heavy vaginal bleeding; if patient can tolerate possible aspirin 4) VRE Urinary Tract Infection (resolved) Assessment/Plan * Zyvox 600mg PO BID for 7 days since Tuesday 08/14- per ID for VRE * OFF Contact isolation 5) Diabetes-->chronic Assessment/Plan * HgBA1c: 7.8 * Hypoglycemic protocol * held Lantus 15 units subcutaneous at bedtime Q12 * Hypoglycemic 08/23/18 AM * Accuchecks Q4H * Crestor 5mg POqHS 6) Acute on Chronic Renal Failure Assessment/Plan * Nephrology (Dr. Hyde) on board--> help appreciated * Patient will likely not need dialysis * mildly improving 7) Hyperthyroidism? Low TSH, and Free T4 Thyroid Storm Assessment/Plan * Note Thyroid studies taken before amiodarone was given (please advised this is not amiodarone induced her levels were abnormal prior) * Patient does not have prior thyroid history * Endocrinology (Dr. 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 She will need outpatient FNA Bx of the complex Left Lobe cyst (please see full report) * Methimazole 20mg PO TID * off Propranolol 5 mg PO TID due to hypotension * Monitor LFTs 8) Anemia Likely Secondary to Chronic Diseases Assessment/Plan * Iron normal, TIBC low, Iron Saturation normal, Ferritin normal * Stool occult blood negative * B12 normal * Folate Normal * Transfused 1 unit PRBC 07/22/18, 2 unit of PRBC 08/13/18 1 unit on 08/17/18, 1 unit 08/23/18 * Patient has been seen by OB Hospitalist; no contraindication to anticoagulation * Case discussed with medical administrative recommending against eliquis in light of bleeding; recommending for DVT ppx and aspirin * 9) Transminitis-->improving * Likely secondary to Sepsis and Amiodarone (which was discontinued) * Hepatitis serology negative * Normalized 10) Vitamin D deficiency Assessment plan * 50,000 international units once a week (3 doses given so far) * Restart Vitamin D 50,000 IU once a week for 9 weeks (on 08/18/18) 11) Thrombocytopenia-->resolved Assessment plan * HIT/RUSTY were negative 12) 13 mm Left Adrenal Nodule * As seen on CT Chest 07/16/18 * Will need outpatient follow up for cross sectional imaging for better characterization 13) Hypernatremia-->resolved * Free water 250 ml 3x/day via OGT * Na now normal 14) LLE DVT * Eliquis 5 mg PO BID d/c 08/17 * Acute thrombosis of the left common femoral and femoral veins with severe reduction of the venous return on 07/18/18 venous doppler * Patient had completed one month on Eliquis; however she continues to have dysfunction uterine bleeding; cardiology is recommending against eliquis for thrombus given bleeding risk * Will repeat doppler to see if DVT has resolved by ultrasound repeat * s/p IVC filter (08/23/18) 15) Deconditioning * Patient needs continued PT/OT * I did speak with Dr. Pham 08/18 in regards to reset patient's sleep wake cycle--> her pattern tends to be she is agitated at night when her is not present (her reliable social cue) receives benzo/haldol/seroquel and becomes very lethargic in the morning which presents rehab from working with her.Ambien currently helps her to sleep at Note Patient is connected to vent. She is unable to get off vent keeps failing trial. Patient was last on trach collar on 08/12. She is unable to get the MRI because the vent does not fit in the MRI. * Respiratory attempting to wean but remains on vent 16) Prophylactic measure * Protonix 40mg IVP BID * Lactobacillus 1 cap PO BID * MVI 1x/day * Vitamin C 1,000 NG 1x/day * s/p Trach and Peg * SCD on Right and contraindicated on Left due to DVT * Peg feedings * Pulmcar 40cc/hr * patient had frequent BMs on prior formula; no diarrhea; we have spoken with dietary to change it on 08/19/18 * PICC Line 07/31/18 * Note: speak to patient in alexis to assess neurologic status-->she does follow sometimes * c/w Ambien 5mg POqHS to reset circadian rhythm so patient tries to sleep at night and remain awake during the day to work with PT/OT * s/p bronchoscopy 08/23 * s/p IVC filter 08/23 Disposition: * off anticoagulation given H/H drop suspected to dysfunctional uterine bleeding; if there is a drop by 3-4-->may need hysterectomy * s/p ivc filter * s/p bronchoscopy * New sputum culture with chest xray 08/22 for new pneumonia-->start IV abx * per cardio, dvt ppx/aspirin for cardiac thrombus chemical anticoagulation stopped given h/h drops * pallative care consult for goals of care
[2018-08-23] MEDS: Lactobacillus Acidophilus 500 MU Cap PEG SCH ×2 (09:32→21:19)
[2018-08-23] MEDS: Vitamins A & D Oint UD Foilpak TOP SCH ×2 (09:33→17:29)
--- NOTE | 2018-08-23 09:38 | CP.PCM.PN ---
Subjective - Date & Time of Evaluation Date of Evaluation: 08/23/18 Time of Evaluation: 09:36 - Subjective Subjective: Patient examined in bed, very restless, on MV via trach, unable to fallow commends, nonverbal. at bed side. Patient is being prepared for OR for IVC placement. Patient is still bleeding vaginally. BP low at 83/62. Hb 7.5. INR 1.3. Patient is off anticoagulants. Objective - Vital Signs/Intake and Output Vital Signs (last 24 hours): Temp Pulse Resp BP Pulse Ox 97 F L 72 22 83/61 L 100 08/23/18 08:00 08/23/18 04:00 08/23/18 08:00 08/23/18 08:00 08/23/18 08:00 Intake and Output: 08/23/18 08/23/18 06:59 18:59 Intake Total 740 Output Total 2 Balance 738 - Medications Medications: Current Medications Acetaminophen (Tylenol 650mg/20.3ml Solution Ud) 650 mg PEG Q6 PRN Last Admin: 08/18/18 02:10 Dose: 650 mg Acetylcysteine (Acetylcysteine 20%) 4 ml INH RQ6 [facility] Last Admin: 08/23/18 07:47 Dose: 4 ml Albumin Human (Albumin Human 25% (12.5 Gm/50 Ml)) 12.5 gm IV Q1H [facility] Stop: 08/23/18 10:31 Albuterol/Ipratropium (Duoneb 3 Mg/0.5 Mg (3 Ml) Ud) 3 ml INH RQ6 [facility] Last Admin: 08/23/18 07:47 Dose: 3 ml Ascorbic Acid (Vitamin C 500 Mg Tab) 1,000 mg NG DAILY [facility] Last Admin: 08/22/18 09:38 Dose: 1,000 mg Bacitracin (Bacitracin) 1 ea TOP BID [facility] Last Admin: 08/22/18 18:15 Dose: 1 ea Ergocalciferol (Drisdol 50,000 Intl Units Cap) 1 cap GT Q7D [facility] Stop: 10/06/18 19:16 Last Admin: 08/18/18 23:34 Dose: 1 cap Fluconazole (Diflucan) 100 mg PO DAILY [facility]; Protocol Stop: 08/29/18 23:59 Last Admin: 08/22/18 09:39 Dose: 100 mg Heparin Sodium (Porcine) (Heparin) 5,000 units SC Q12 [facility] Last Admin: 08/22/18 21:10 Dose: 5,000 units Insulin Aspart (Novolog) 0 unit SC Q6 [facility]; Protocol Last Admin: 08/23/18 06:41 Dose: Not Given Insulin Glargine (Lantus) 15 unit SC Q12 [facility] Last Admin: 08/22/18 21:11 Dose: 15 units Lactobacillus Acidophilus (Bacid Acidophilus) 1 cap PEG Q12 [facility] Last Admin: 08/23/18 09:32 Dose: Not Given Methimazole (Tapazole) 20 mg PO Q8 [facility] Last Admin: 08/23/18 06:42 Dose: Not Given Multivitamins (Hexavitamin) 1 tab PEG DAILY [facility] Last Admin: 08/22/18 09:38 Dose: 1 tab Pantoprazole Sodium (Protonix Inj) 40 mg IVP Q12H [facility] Last Admin: 08/23/18 00:00 Dose: 40 mg Propranolol HCl (Inderal) 5 mg PEG TID [facility] Last Admin: 08/22/18 18:16 Dose: Not Given Rosuvastatin Calcium (Crestor) 5 mg PO HS [facility] Last Admin: 08/22/18 21:10 Dose: 5 mg Vitamin A (Vitamin A & D Oint Ud Foilpak) 1 ea TOP BID [facility] Last Admin: 08/23/18 09:33 Dose: 1 ea Zolpidem Tartrate (Ambien) 5 mg PEG HS [facility] Last Admin: 08/22/18 21:10 Dose: 5 mg - Labs Labs: 08/23/18 05:52 08/23/18 05:53 PT 14.7 SECONDS (9.7-12.2) H 08/23/18 05:52 INR 1.3 08/23/18 05:52 APTT 28 SECONDS (21-34) D 08/23/18 05:52 - Constitutional Appears: In Acute Distress, Chronically Ill - Head Exam Head Exam: ATRAUMATIC, NORMAL INSPECTION, NORMOCEPHALIC - Eye Exam Eye Exam: EOMI, Normal appearance, PERRL Pupil Exam: NORMAL ACCOMODATION, PERRL - ENT Exam ENT Exam: Mucous Membranes Dry Additional comments: Trach - Respiratory Exam Additional comments: On MV via trach - Cardiovascular Exam Cardiovascular Exam: Tachycardia, Irregular Rhythm - GI/Abdominal Exam Additional comments: PEG - Rectal Exam Rectal Exam: Deferred - Exam Additional comments: Vaginal bleeding - Extremities Exam Extremities Exam: Normal Inspection - Back Exam Back Exam: NORMAL INSPECTION - Neurological Exam Neurological Exam: Alert, Altered Neuro motor strength exam: Left Upper Extremity: 2/, Right Upper Extremity: 2/, Left Lower Extremity: 2/, Right Lower Extremity: 2/ - Psychiatric Exam Psychiatric exam: Agitated - Skin Skin Exam: Pallor Assessment and Plan - Assessment and Plan (Free Text) Assessment: Palliative progress note Patient examined in bed. at bed side. Patient is very agitated, makes purposeless movements with upper and lower extremities. Very retless.Patient is on Ambien 5 mg Q HS for restoring sleep-wake cycle. Makes brief eye contacts but does not fallow commends. Nonverbal. Trach in place. Breath sounds diminished. Peg in place. Vaginal bleeding persists. BP 83/62, Tachycardic, afebrile. Hb 7.5. Patient is being prepared for IVC filter with Doctor Vicky. signed consent. I reviewed patient's clinical condition with and offered my concerns about its very complex nature, almost critical. He stated understanding and cried. They have been together for 25 years with no children and never got . is expressing his love for the patient and deep hope in miracle and recovery. He seemed very stressed out and helpless. I offered support and reassurance in care provided. I attempted Code status discussion . The looked very stressed out and u nable to concentrate. I felt this was not good time to have this kind of discussion as the stress level was to high given patient's presentation and her pending procedure. We agreed to meet after the procedure. Impression * This is acutely ill lady with significantly altered quality of life * Agitation and irritability * AMS * Vaginal bleeding * is involved in care and is hoping for miracle * Spiritual distress * Anticipatory grieving Suggestions * Promote safety * Encourage to spend time at bed side as much as possible * Monitor Hb level, may need blood transfusion * Pastoral care for spiritual support * DNR would be appropriate Code status This has been very long admission and I expect it to last even longer. Unfortunately, I do not feel that this patient will ever achieve meaningful recovery. It is difficult for her to except it and is is having unrealistic hope what further prolong patient's suffering. I will meet again after the IVC filter and continue Code status discussion. Advance care planing 46 min
[2018-08-23] MEDS: Albumin Human 25% (12.5 gm/50 ml) IV SCH ×2 (10:37→13:11)
[2018-08-23] MEDS: (Lantus) Insulin Glargine, Recombinant SC SCH (10:39)
[2018-08-23] MEDS ORDERED: Iohexol 240 (50 ml) ONE (10:48)
[2018-08-23] MEDS ORDERED: HEPARIN-NS 5,000 UNITS/500 ML 5,000 UNIT/500 ML BAG IV ONE (10:48)
[2018-08-23] MEDS ORDERED: ceFAZolin IV 1 gm in Dextrose 1 GM/50 ML BAG IVPB ONE (10:49)
--- NOTE | 2018-08-23 11:58 | PCM.SURG1 ---
Surgeon's Initial Post Op Note - Surgeon's Notes Surgeon: Dr. Perry Franchise Field Consultant: Dr. Benjamin Type of Anesthesia: General Tracheostomy, Local Pre-Operative Diagnosis: Hx of DVT, Inability to anticoagulate due to uterine bleeding Operative Findings: See operative report Post-Operative Diagnosis: Same Operation Performed: IVCF placement Specimen/Specimens Removed: none Estimated Blood Loss: EBL {In ML}: 10 Blood Products Given: N/A Drains Used: No Drains Post-Op Condition: Good Date of Surgery/Procedure: 08/23/18 Time of Surgery/Procedure: 11:58
[2018-08-23] MEDS: Meropenem 500 MG in Sodium Chloride 0.9% 100 ML IVPB SCH ×2 (13:13→21:20)
[2018-08-23] MEDS: Bacitracin 500 Units/gm Oint Foilpak UD TOP SCH ×2 (13:20→17:29)
[2018-08-23] MEDS: Multiple Vitamins Tab PEG SCH (13:21)
[2018-08-23] MEDS ORDERED: Glucagon Recombinant 1 mg Inj IM PRN (14:41)
[2018-08-23] MEDS ORDERED: Dextrose 50% SYRINGE Inj (50 ml) IVP PRN (14:41)
--- NOTE | 2018-08-23 15:09 | RAD ---
Date of service: 08/23/2018 HISTORY: new infiltrates seen on last cxr, r/o pulm congest COMPARISON: Portable chest 08/22/2018. FINDINGS: LUNGS: Endotracheal tube is unchanged in position as well as left PICC. Patchy airspace disease at the medial right base is diminished and left hemidiaphragm is better defined suggesting likely improved pneumonia or atelectasis there. No new infiltrate appreciated bilaterally. PLEURA: No significant pleural effusion identified, no pneumothorax apparent. CARDIOVASCULAR: No aortic atherosclerotic calcification present. Normal cardiac size. No pulmonary vascular congestion. OSSEOUS STRUCTURES: No significant abnormalities. VISUALIZED UPPER ABDOMEN: Normal. OTHER FINDINGS: None. IMPRESSION: Improving bibasilar airspace disease with mild residual bilaterally.
--- NOTE | 2018-08-23 15:23 | RAD ---
Date of service: 08/23/2018 PROCEDURE: Intraoperative fluoroscopy HISTORY: DEEP VEIN TRHOMBOSIS COMPARISON: Not available TECHNIQUE: Intraoperative fluoroscopy was provided for vena caval filter placement. Total time of fluoroscopy was 80.1 sec. Cumulative dose was 0.01767 mGy meter squared. FINDINGS: Two fluoroscopic spot films are submitted. IMPRESSION: Fluoroscopy provided
[2018-08-23] MEDS ORDERED: Sodium Chloride 0.9% 0 ML IV ONE (17:27)
[2018-08-23] MEDS ORDERED: EPINEPHrine 1 mg/ml (1:1000) Inj ONE (17:27)
[2018-08-23] MEDS ORDERED: Lidocaine 2% MPF (5 ml) Inj ONE (17:27)
[2018-08-23] MEDS ORDERED: Propofol 10 mg/ml Inj (20 ML) IV ONE (17:47)
[2018-08-23] MEDS ORDERED: Propofol 10 mg/ml Inj (20 ML) ONE (17:50)
[2018-08-23] MEDS ORDERED: Micafungin 100 MG in Sodium Chloride 0.9% 100 ML IV SCH (19:00)
--- NOTE | 2018-08-23 21:29 | OP ---
PROCEDURE DATE: 07/23/2018 PREOPERATIVE DIAGNOSIS: History of deep vein thrombosis, left leg. PROCEDURE CARRIED OUT: Placement of sentry filter via vena cava. SURGEON: Edis Perry Jr., MD INSTRUCTOR PRODUCT INSPECTION: Judy Benjamin DO ANESTHESIOLOGIST: Dr. Key. INDICATIONS FOR PROCEDURE: The patient is a middle-aged woman with multiple medical problems, tracheostomy, on a ventilator, history of deep vein thrombosis in the leg, inability to anticoagulate, inability to finish her anticoagulation and because of the high risks, she is present and a filter was requested. OPERATIVE FINDINGS: We placed a sensory filter with the anticipation that this would not be needed longer term. DESCRIPTION OF PROCEDURE: The patient was given general anesthesia because she has tracheostomy. Using ultrasound guidance, the right common femoral vein was punctured. The initial puncture was in the artery. This was _ wire went through. We then punctured more medially. Despite use of ultrasound guidance, we were able to get into the vein. We then deployed a Bentson wire. We deployed the sheath to the level of renal veins. We deployed the filter and deployed the tip of it accompanying the renal veins. It should be a little bit lower. The procedure was then terminated. The filter unfurled appropriately and it was in proper upright position. Blood loss for the procedure was 10 mL. Operation carried out was deployment of vena cava filter. Images demonstrated opacification of vena cava and right iliac vein without any evidence of intraluminal thrombosis. . Ultrasound images of the groin showed the vein was widely patent, measuring approximately 14 mm with a normal compressibility and no intraluminal thrombosis. Edis Perry Jr., MD [facility]
[2018-08-24] MEDS: (Novolog) Insulin Aspart, Recombinant 100 u/ml 10 ml vial SC SCH ×4 (00:49→17:57)
[2018-08-24] MEDS: Acetylcysteine 20% Inhal Soln (4ml) INH SCH ×4 (01:12→20:53)
[2018-08-24] MEDS: Albuterol-Ipratrop 3 mg / 0.5 (3 ml) UD INH SCH ×4 (01:12→20:53)
[2018-08-24] MEDS: Meropenem 500 MG in Sodium Chloride 0.9% 100 ML IVPB SCH ×4 (03:34→19:57)
[2018-08-24 06:20] LABS: BASO % 0.5 % (0.0-2.0); EOS % 0.2 % (0.0-4.0); HEMOGLOBIN 9.3 g/dL (11.0-16.0); LYMPH # 0.8 K/uL (1.0-4.3); LYMPH % 7.8 % (20.0-40.0); MEAN CELL VOLUME 88.3 fL (81.0-99.0); MEAN CORPUSCULAR HEMOGLOBIN 29.8 pg (27.0-31.0); MEAN CORPUSCULAR HGB CONC 33.7 g/dL (33.0-37.0); MEAN PLATELET VOLUME 8.3 fL (7.2-11.7); MONO # 0.4 K/uL (0.0-0.8); MONO % 3.9 % (0.0-10.0); NEUT # 9.1 K/uL (1.8-7.0); NEUT % 87.6 % (50.0-75.0); NRBC % 0.2 % (0.0-2.0); PLATELET COUNT 224 K/uL (130-400); RBC 3.13 Mil/uL (3.80-5.20); WHITE BLOOD COUNT 10.4 K/uL (4.8-10.8)
[2018-08-24 06:29] LABS: INR 1.8; PROTHROMBIN TIME 19.8 SECONDS (9.7-12.2)
[2018-08-24 06:38] LABS: ALB/GLOB RATIO 0.8 (1.0-2.1); ALBUMIN 2.7 g/dL (3.5-5.0); CALCIUM 7.6 mg/dl (8.6-10.4)
--- NOTE | 2018-08-24 07:31 | CP.PCM.PN ---
Objective - Vital Signs/Intake and Output Vital Signs (last 24 hours): Temp Pulse Resp BP Pulse Ox 97.5 F L 99 H 14 102/51 L 100 08/24/18 04:00 08/24/18 04:00 08/24/18 04:00 08/24/18 04:00 08/24/18 04:00 Intake and Output: 08/24/18 08/24/18 06:59 18:59 Intake Total 2170 Output Total 302 Balance 1868 - Medications Medications: Current Medications Acetaminophen (Tylenol 650mg/20.3ml Solution Ud) 650 mg PEG Q6 PRN Last Admin: 08/18/18 02:10 Dose: 650 mg Acetylcysteine (Acetylcysteine 20%) 4 ml INH RQ6 [facility] Last Admin: 08/24/18 01:12 Dose: 4 ml Albuterol/Ipratropium (Duoneb 3 Mg/0.5 Mg (3 Ml) Ud) 3 ml INH RQ6 [facility] Last Admin: 08/24/18 01:12 Dose: 3 ml Ascorbic Acid (Vitamin C 500 Mg Tab) 1,000 mg NG DAILY [facility] Last Admin: 08/23/18 13:17 Dose: Not Given Bacitracin (Bacitracin) 1 ea TOP BID [facility] Last Admin: 08/23/18 17:29 Dose: 1 ea Dextrose (Dextrose 50% Inj) 0 ml IVP .STAT PRN; Protocol PRN Reason: Hypoglycemia Protocol Dextrose (Glutose 15) 0 gm PO .ONCE PRN; Protocol PRN Reason: Hypoglycemia Protocol Ergocalciferol (Drisdol 50,000 Intl Units Cap) 1 cap GT Q7D [facility] Stop: 10/06/18 19:16 Last Admin: 08/18/18 23:34 Dose: 1 cap Glucagon (Glucagen Diagnostic Kit) 0 mg IM .STAT PRN; Protocol PRN Reason: Hypoglycemia Protocol Heparin Sodium (Porcine) (Heparin) 5,000 units SC Q12 [facility] Last Admin: 08/23/18 21:19 Dose: 5,000 units Meropenem 500 mg/ Sodium (Chloride) 100 mls @ 100 mls/hr IVPB Q8H [facility] Last Admin: 08/24/18 03:34 Dose: 100 mls/hr Vancomycin HCl 1 gm/ Sodium (Chloride) 250 mls @ 166.7 mls/hr IVPB Q12H [facility]; Protocol Last Admin: 08/24/18 03:28 Dose: 166.7 mls/hr Dextrose (Dextrose 5% In Water 1000 Ml) 1,000 mls @ 0 mls/hr IV .Q0M PRN; Protocol PRN Reason: Hypoglycemia Protocol Micafungin Sodium 100 mg/ (Sodium Chloride) 100 mls @ 100 mls/hr IV Q24H [facility]; Protocol Last Admin: 08/23/18 21:20 Dose: 100 mls/hr Insulin Aspart (Novolog) 0 unit SC Q6 [facility]; Protocol Last Admin: 08/24/18 00:49 Dose: Not Given Insulin Glargine (Lantus) 15 unit SC Q12 [facility] Last Admin: 08/23/18 10:39 Dose: Not Given Lactobacillus Acidophilus (Bacid Acidophilus) 1 cap PEG Q12 [facility] Last Admin: 08/23/18 21:19 Dose: 1 cap Methimazole (Tapazole) 20 mg PO Q8 [facility] Last Admin: 08/24/18 05:11 Dose: 20 mg Multivitamins (Hexavitamin) 1 tab PEG DAILY [facility] Last Admin: 08/23/18 13:21 Dose: Not Given Pantoprazole Sodium (Protonix Inj) 40 mg IVP Q12H [facility] Last Admin: 08/24/18 00:49 Dose: 40 mg Propranolol HCl (Inderal) 5 mg PEG TID [facility] Last Admin: 08/22/18 18:16 Dose: Not Given Rosuvastatin Calcium (Crestor) 5 mg PO HS [facility] Last Admin: 08/23/18 21:26 Dose: 5 mg Vitamin A (Vitamin A & D Oint Ud Foilpak) 1 ea TOP BID [facility] Last Admin: 08/23/18 17:29 Dose: 1 ea Zolpidem Tartrate (Ambien) 5 mg PEG HS [facility] Last Admin: 08/23/18 21:19 Dose: 5 mg - Labs Labs: 08/24/18 06:15 08/24/18 06:12 PT 19.8 SECONDS (9.7-12.2) H D 08/24/18 06:21 INR 1.8 D 08/24/18 06:21 APTT 28 SECONDS (21-34) D 08/23/18 05:52
[2018-08-24] MEDS ORDERED: Phytonadione 10 mg/ml Inj (Adult) SC STA (08:39)
--- NOTE | 2018-08-24 08:42 | CP.PCM.PN ---
Subjective - Date & Time of Evaluation Date of Evaluation: 08/24/18 Time of Evaluation: 08:39 - Subjective Subjective: Vascular Surgery: Dr. Perry Pt seen and examined. No acute overnight events. Remains on the vent via tracheostomy. No fevers recorded overnight. Objective - Vital Signs/Intake and Output Vital Signs (last 24 hours): Temp Pulse Resp BP Pulse Ox 97.5 F L 99 H 14 102/51 L 100 08/24/18 04:00 08/24/18 04:00 08/24/18 04:00 08/24/18 04:00 08/24/18 04:00 Intake and Output: 08/24/18 08/24/18 06:59 18:59 Intake Total 2170 Output Total 302 Balance 1868 - Medications Medications: Current Medications Acetaminophen (Tylenol 650mg/20.3ml Solution Ud) 650 mg PEG Q6 PRN Last Admin: 08/18/18 02:10 Dose: 650 mg Acetylcysteine (Acetylcysteine 20%) 4 ml INH RQ6 [facility] Last Admin: 08/24/18 01:12 Dose: 4 ml Albuterol/Ipratropium (Duoneb 3 Mg/0.5 Mg (3 Ml) Ud) 3 ml INH RQ6 [facility] Last Admin: 08/24/18 01:12 Dose: 3 ml Ascorbic Acid (Vitamin C 500 Mg Tab) 1,000 mg NG DAILY [facility] Last Admin: 08/23/18 13:17 Dose: Not Given Bacitracin (Bacitracin) 1 ea TOP BID [facility] Last Admin: 08/23/18 17:29 Dose: 1 ea Dextrose (Dextrose 50% Inj) 0 ml IVP .STAT PRN; Protocol PRN Reason: Hypoglycemia Protocol Dextrose (Glutose 15) 0 gm PO .ONCE PRN; Protocol PRN Reason: Hypoglycemia Protocol Ergocalciferol (Drisdol 50,000 Intl Units Cap) 1 cap GT Q7D [facility] Stop: 10/06/18 19:16 Last Admin: 08/18/18 23:34 Dose: 1 cap Glucagon (Glucagen Diagnostic Kit) 0 mg IM .STAT PRN; Protocol PRN Reason: Hypoglycemia Protocol Heparin Sodium (Porcine) (Heparin) 5,000 units SC Q12 [facility] Last Admin: 08/23/18 21:19 Dose: 5,000 units Meropenem 500 mg/ Sodium (Chloride) 100 mls @ 100 mls/hr IVPB Q8H [facility] Last Admin: 08/24/18 03:34 Dose: 100 mls/hr Vancomycin HCl 1 gm/ Sodium (Chloride) 250 mls @ 166.7 mls/hr IVPB Q12H [facility]; Protocol Last Admin: 08/24/18 03:28 Dose: 166.7 mls/hr Dextrose (Dextrose 5% In Water 1000 Ml) 1,000 mls @ 0 mls/hr IV .Q0M PRN; Protocol PRN Reason: Hypoglycemia Protocol Micafungin Sodium 100 mg/ (Sodium Chloride) 100 mls @ 100 mls/hr IV Q24H [facility]; Protocol Last Admin: 08/23/18 21:20 Dose: 100 mls/hr Insulin Aspart (Novolog) 0 unit SC Q6 [facility]; Protocol Last Admin: 08/24/18 07:33 Dose: Not Given Insulin Glargine (Lantus) 15 unit SC Q12 [facility] Last Admin: 08/23/18 10:39 Dose: Not Given Lactobacillus Acidophilus (Bacid Acidophilus) 1 cap PEG Q12 [facility] Last Admin: 08/23/18 21:19 Dose: 1 cap Methimazole (Tapazole) 20 mg PO Q8 [facility] Last Admin: 08/24/18 05:11 Dose: 20 mg Multivitamins (Hexavitamin) 1 tab PEG DAILY [facility] Last Admin: 08/23/18 13:21 Dose: Not Given Pantoprazole Sodium (Protonix Inj) 40 mg IVP Q12H [facility] Last Admin: 08/24/18 00:49 Dose: 40 mg Phytonadione (Vitamin K Inj) 10 mg SC STAT [facility] Stop: 08/24/18 08:40 Propranolol HCl (Inderal) 5 mg PEG TID [facility] Last Admin: 08/22/18 18:16 Dose: Not Given Rosuvastatin Calcium (Crestor) 5 mg PO HS [facility] Last Admin: 08/23/18 21:26 Dose: 5 mg Vitamin A (Vitamin A & D Oint Ud Foilpak) 1 ea TOP BID [facility] Last Admin: 08/23/18 17:29 Dose: 1 ea Zolpidem Tartrate (Ambien) 5 mg PEG HS [facility] Last Admin: 08/23/18 21:19 Dose: 5 mg - Labs Labs: 08/24/18 06:15 08/24/18 06:12 PT 19.8 SECONDS (9.7-12.2) H D 08/24/18 06:21 INR 1.8 D 08/24/18 06:21 APTT 28 SECONDS (21-34) D 08/23/18 05:52 - Constitutional Appears: Well, No Acute Distress - Head Exam Head Exam: ATRAUMATIC, NORMOCEPHALIC - ENT Exam Additional comments: tracheostomy in place - GI/Abdominal Exam GI & Abdominal Exam: Soft - Extremities Exam Additional comments: R groin dressing clean/dry - Neurological Exam Neurological Exam: Awake - Skin Skin Exam: Dry, Warm Assessment and Plan - Assessment and Plan (Free Text) Assessment: 52F s/p IVCF placement; POD#1 Plan: - no further surgical intervention at this time - d/w Dr. Vicky Benjamin
--- NOTE | 2018-08-24 09:18 | CP.PCM.PN ---
Subjective - Date & Time of Evaluation Date of Evaluation: 08/24/18 Time of Evaluation: 09:10 - Subjective Subjective: Medical Attending Note: Patient seen and examined with at bedside. Patient is lethargic at bedside. Unable to ROS secondary secondary clinical condition. No vaginal bleeding. Objective - Vital Signs/Intake and Output Vital Signs (last 24 hours): Temp Pulse Resp BP Pulse Ox 97.6 F 94 H 16 100/74 100 08/24/18 08:00 08/24/18 08:00 08/24/18 08:00 08/24/18 08:00 08/24/18 08:00 Intake and Output: 08/24/18 08/24/18 06:59 18:59 Intake Total 2170 Output Total 302 Balance 1868 - Medications Medications: Current Medications Acetaminophen (Tylenol 650mg/20.3ml Solution Ud) 650 mg PEG Q6 PRN Last Admin: 08/18/18 02:10 Dose: 650 mg Acetylcysteine (Acetylcysteine 20%) 4 ml INH RQ6 [facility] Last Admin: 08/24/18 01:12 Dose: 4 ml Albuterol/Ipratropium (Duoneb 3 Mg/0.5 Mg (3 Ml) Ud) 3 ml INH RQ6 [facility] Last Admin: 08/24/18 01:12 Dose: 3 ml Ascorbic Acid (Vitamin C 500 Mg Tab) 1,000 mg NG DAILY [facility] Last Admin: 08/23/18 13:17 Dose: Not Given Bacitracin (Bacitracin) 1 ea TOP BID [facility] Last Admin: 08/23/18 17:29 Dose: 1 ea Dextrose (Dextrose 50% Inj) 0 ml IVP .STAT PRN; Protocol PRN Reason: Hypoglycemia Protocol Dextrose (Glutose 15) 0 gm PO .ONCE PRN; Protocol PRN Reason: Hypoglycemia Protocol Ergocalciferol (Drisdol 50,000 Intl Units Cap) 1 cap GT Q7D [facility] Stop: 10/06/18 19:16 Last Admin: 08/18/18 23:34 Dose: 1 cap Glucagon (Glucagen Diagnostic Kit) 0 mg IM .STAT PRN; Protocol PRN Reason: Hypoglycemia Protocol Heparin Sodium (Porcine) (Heparin) 5,000 units SC Q12 [facility] Last Admin: 08/23/18 21:19 Dose: 5,000 units Meropenem 500 mg/ Sodium (Chloride) 100 mls @ 100 mls/hr IVPB Q8H [facility] Last Admin: 08/24/18 03:34 Dose: 100 mls/hr Vancomycin HCl 1 gm/ Sodium (Chloride) 250 mls @ 166.7 mls/hr IVPB Q12H [facility]; Protocol Last Admin: 08/24/18 03:28 Dose: 166.7 mls/hr Dextrose (Dextrose 5% In Water 1000 Ml) 1,000 mls @ 0 mls/hr IV .Q0M PRN; Protocol PRN Reason: Hypoglycemia Protocol Micafungin Sodium 100 mg/ (Sodium Chloride) 100 mls @ 100 mls/hr IV Q24H [facility]; Protocol Last Admin: 08/23/18 21:20 Dose: 100 mls/hr Insulin Aspart (Novolog) 0 unit SC Q6 [facility]; Protocol Last Admin: 08/24/18 07:33 Dose: Not Given Insulin Glargine (Lantus) 15 unit SC Q12 [facility] Last Admin: 08/23/18 10:39 Dose: Not Given Lactobacillus Acidophilus (Bacid Acidophilus) 1 cap PEG Q12 [facility] Last Admin: 08/23/18 21:19 Dose: 1 cap Methimazole (Tapazole) 20 mg PO Q8 [facility] Last Admin: 08/24/18 05:11 Dose: 20 mg Multivitamins (Hexavitamin) 1 tab PEG DAILY [facility] Last Admin: 08/23/18 13:21 Dose: Not Given Pantoprazole Sodium (Protonix Inj) 40 mg IVP Q12H [facility] Last Admin: 08/24/18 00:49 Dose: 40 mg Propranolol HCl (Inderal) 5 mg PEG TID [facility] Last Admin: 08/22/18 18:16 Dose: Not Given Rosuvastatin Calcium (Crestor) 5 mg PO HS [facility] Last Admin: 08/23/18 21:26 Dose: 5 mg Vitamin A (Vitamin A & D Oint Ud Foilpak) 1 ea TOP BID [facility] Last Admin: 08/23/18 17:29 Dose: 1 ea Zolpidem Tartrate (Ambien) 5 mg PEG HS [facility] Last Admin: 08/23/18 21:19 Dose: 5 mg - Labs Labs: 08/24/18 06:15 08/24/18 06:12 PT 19.8 SECONDS (9.7-12.2) H D 08/24/18 06:21 INR 1.8 D 08/24/18 06:21 APTT 28 SECONDS (21-34) D 08/23/18 05:52 - Constitutional Appears: Confused, Chronically Ill - Head Exam Head Exam: NORMAL INSPECTION - Eye Exam Eye Exam: EOMI - ENT Exam ENT Exam: Mucous Membranes Dry - Respiratory Exam Respiratory Exam: Decreased Breath Sounds, Rales, Rhonchi, NORMAL BREATHING PATTERN. absent: Wheezes, Respiratory Distress Additional comments: on vent - Cardiovascular Exam Cardiovascular Exam: REGULAR RHYTHM, +S1, +S2 - GI/Abdominal Exam GI & Abdominal Exam: Soft, Normal Bowel Sounds, Rebound. absent: Distended, Firm, Guarding, Rigid, Tenderness Additional comments: s/p peg (c/d/i) - Extremities Exam Extremities Exam: absent: Pedal Edema, Tenderness Additional comments: muscle atrophy b/l - Neurological Exam Neurological Exam: Altered - Psychiatric Exam Psychiatric exam: Agitated, Flat Affect - Skin Skin Exam: Dry, Normal Color, Warm Assessment and Plan (1) Septic shock Status: Acute (2) Acute respiratory failure Status: Acute (3) Urinary tract infection Status: Acute (4) Acute renal failure Status: Acute (5) Aspiration pneumonia Status: Acute (6) Diabetes mellitus Status: Chronic (7) Ventricular arrhythmia Status: Acute (8) Hyperthyroidism Status: Acute (9) Anemia Status: Acute (10) Prophylactic measure Status: Acute Attending/Attestation - Attestation I have personally seen and examined this patient.: Yes I have fully participated in the care of the patient.: Yes I have reviewed all pertinent clinical information, including history, physical exam and plan: Yes Notes (Text): Patient seen, examined, and case discussed with senior medical transcriptionist. Patient underwent IVC filter by surgery team given prior hx of DVT POD 1. Patient's sputum culture from trach noted for gram negative jerod. Patient underwent s/p bronchoscopy POD 0. Elevated LFTS this morning, d/c statin, benadryl, ativan, porpfol, micafungin Vitamin K given this morning given elevated INR (1.3-->1.8) no bleeding noted. Lantus was held since yesterday. Feedings resumed post OR. Followup bronchoscopy cultures. Patient is on Meropenem and Vancomycin. 1) Septic Shock secondary to Pneumonia and Urinary Tract Infection New Pneumonia Assessment/Plan * Infectious Disease (Dr. Brock) on board-->help appreciated * Trach Aspirate: r gram negative jerod * s/p bronchoscopy (08/23/18) * follow-up culture * dictated by dr keita * Possible fungal infection * discussed with pulm 08/23 * Chest xray from 08/22/18 noted for new right lower lobe infiltrate pneumonia. * Chest xray (08/23/18): improviing bibasilar airspace disease w mild residual bilaterally * Start Meropenem 500 gram IV Q 8H (active since 08/23/18) * Start Vancomycin 1 gram IV Q12H (active since 08/23/18) * HELD Micafungin 100mg IV Q24H (active since 08/23-)-->secondary to RISE in LFTs 2) Anoxic Encephalopathy Assessment/Plan * Code Blue 07/10 and 07/20 * Patient prior knowledge of 5 languages per but does not follow commands; I did speak with the and as for him to speak with her and does not follow with him. Later with his nurse, Martin Royallisetteminerva patient noteably more agitated when she is having frequent bms or needs to be washed and is unable to communicate her needs because of limited of language. * I did speak with Dr. Pham last weekin regards to reset patient's sleep wake cycle--> her pattern tends to be she is agitated at night when her is not present (her reliable social cue) receives benzo/haldol/seroquel and becomes very lethargic in the morning which presents rehab from working with her. Patient noted per nursing staff to sleep with Ambien alone. D/c Benadryl. Unable to get MRI given she remains on trach on vent. * CT head: no acute intracranial pathology. Age-related changes. no significant interval change. 3) Acute Respiratory Failure Pulmonary Edema Assessment/Plan * Patient underwent tracheostomy 07/24/18 * Patient had tolerated trach collars last weekend thru Tuesday 08/14; however she has been on vent to trach. Patient has been unable to be weaned off vent. * Pulmonary (Dr. Lozada) on board-->assisting with weaning from trach on vent to trach collar * Duonebs 3ml Inh Q6H * Add Mucomyst to reduce secretions * Chest xray from 08/22/18 noted for new right lower lobe infiltrate pneumonia. * Chest xray (08/23/18): improviing bibasilar airspace disease w mild residual bilaterally 4) Ventricular Tachycardia NSTEMI Apical Thrombus LLE DVT Assessment/Plan * Code Blue 07/10: SVT==>VT required amiodarone, magnesium, one shock delivered * Code Blue 07/20: vtach s/p amiodarone, fluid, calcium gluconate, required compressions and shock * Cardiology Dr Francisco on case help appreciated * No cath needed. * Medical management * No chemical anticoagulation in light of bleeding episodes (patient has dysfunction uterine bleeding required blood transfusions; Ob has been consulted earlier in the hospitalization to inpatient workup)-->recommending heparin 5000 unit subq8 (DVT ppx dose) and aspirin 81mg PO daily; likely thrombus is organized a month of anticoagulation; risk is due to bleeding against stroke * d/c Propranolol 5mg PO TID (hold SBP<100 and HR<60) * Eliquis d/c bleeding and anemia-->dvt ppx and aspirin * Echo discussed with Dr. Francisco, patient does have residual clot-->aware we cannot anticoagulate given heavy vaginal bleeding; if patient can tolerate possible aspirin 4) VRE Urinary Tract Infection (resolved) Assessment/Plan * Zyvox 600mg PO BID for 7 days since Tuesday 08/14- per ID for VRE * OFF Contact isolation 5) Diabetes-->chronic Assessment/Plan * HgBA1c: 7.8 * Hypoglycemic protocol * held Lantus 15 units subcutaneous at bedtime Q12 * Hypoglycemic 08/23/18 AM * Accuchecks Q4H * off Crestor 5mg POqHS secondary to LFTs 6) Acute on Chronic Renal Failure Assessment/Plan * Nephrology (Dr. Hyde) on board--> help appreciated * Patient will likely not need dialysis * mildly improving 7) Hyperthyroidism? Low TSH, and Free T4 Thyroid Storm Assessment/Plan * Note Thyroid studies taken before amiodarone was given (please advised this is not amiodarone induced her levels were abnormal prior) * Patient does not have prior thyroid history * Endocrinology (Dr. 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 She will need outpatient FNA Bx of the complex Left Lobe cyst (please see full report) * Methimazole 20mg PO TID * off Propranolol 5 mg PO TID due to hypotension * Monitor LFTs 8) Anemia Likely Secondary to Chronic Diseases Assessment/Plan * Iron normal, TIBC low, Iron Saturation normal, Ferritin normal * Stool occult blood negative * B12 normal * Folate Normal * Transfused 1 unit PRBC 07/22/18, 2 unit of PRBC 08/13/18 1 unit on 08/17/18, 1 unit 08/23/18 * Patient has been seen by OB Hospitalist; no contraindication to anticoagulation * Case discussed with battery inspector recommending against eliquis in light of bleeding; recommending for DVT ppx and aspirin 9) Transminitis-->improving * Likely secondary to Sepsis and Amiodarone (which was discontinued) * Hepatitis serology negative * Normalized * elevated INR--> vitamin K given this morning * 08/24: off statin, benadryl, benzo, ambien, and micafungin 10) Vitamin D deficiency Assessment plan * 50,000 international units once a week (3 doses given so far) * Restart Vitamin D 50,000 IU once a week for 9 weeks (on 08/18/18) 11) Thrombocytopenia-->resolved Assessment plan * HIT/RUSTY were negative 12) 13 mm Left Adrenal Nodule * As seen on CT Chest 07/16/18 * Will need outpatient follow up for cross sectional imaging for better characterization 13) Hypernatremia-->resolved * Free water 250 ml 3x/day via OGT * Na now normal 14) LLE DVT * Eliquis 5 mg PO BID d/c 08/17 * Acute thrombosis of the left common femoral and femoral veins with severe reduction of the venous return on 07/18/18 venous doppler * Patient had completed one month on Eliquis; however she continues to have dysfunction uterine bleeding; cardiology is recommending against eliquis for thrombus given bleeding risk * repeat doppler to see if DVT has resolved by ultrasound repeat * s/p IVC filter (08/23/18) 15) Deconditioning * Patient needs continued PT/OT * I did speak with Dr. Pham 08/18 in regards to reset patient's sleep wake cycle--> her pattern tends to be she is agitated at night when her is not present (her reliable social cue) receives benzo/haldol/seroquel and becomes very lethargic in the morning which presents rehab from working with her.Ambien currently helps her to sleep at Note Patient is connected to vent. She is unable to get off vent keeps failing trial. Patient was last on trach collar on 08/12. She is unable to get the MRI because the vent does not fit in the MRI. * Respiratory attempting to wean but remains on vent * 08/24: off ambien/benadryl secondary to elevated LFTs 16) Prophylactic measure * Protonix 40mg IVP BID * Lactobacillus 1 cap PO BID * MVI 1x/day * Vitamin C 1,000 NG 1x/day * s/p Trach and Peg * SCD on Right and contraindicated on Left due to DVT * Peg feedings * Pulmcar 40cc/hr * patient had frequent BMs on prior formula; no diarrhea; we have spoken with dietary to change it on 08/19/18 * PICC Line 07/31/18 * Note: speak to patient in alexis to assess neurologic status-->she does follow sometimes * OFF Ambien 5mg POqHS given LFTS * s/p bronchoscopy 08/23 * s/p IVC filter 08/23 Disposition: * off anticoagulation given H/H drop suspected to dysfunctional uterine b leeding; if there is a drop by 3-4-->may need hysterectomy * s/p ivc filter * s/p bronchoscopy-->f/u cultures * New sputum culture with chest xray 08/22 for new pneumonia-->start IV abx * will need suctioning * f/u trach aspirate culture * per cardio, dvt ppx/aspirin for cardiac thrombus chemical anticoagulation stopped given h/h drops--<held secondary to elevated INR * pallative care consult for goals of care
[2018-08-24 09:20] LABS: ANISOCYTOSIS MODERATE; BANDS 6 % (0-2); LYMPHOCYTE 8 % (20-40); MONOCYTE 3 % (0-10); NEUTROPHIL 83 % (50-75); PLATELET ESTIMATE NORMAL (NORMAL); TOTAL CELLS COUNTED 100
[2018-08-24 09:21] LABS: HYPOCHROMIC SLIGHT; LARGE PLATELETS PRESENT; POLYCHROMIC SLIGHT; TOXIC GRANULATION PRESENT
[2018-08-24 09:22] LABS: GIANT PLATELETS PRESENT
[2018-08-24] MEDS: Albumin Human 25% (12.5 gm/50 ml) IV SCH ×3 (10:00→11:00)
[2018-08-24] MEDS: Multiple Vitamins Tab PEG SCH (11:10)
[2018-08-24] MEDS: Vitamins A & D Oint UD Foilpak TOP SCH ×2 (11:12→17:52)
[2018-08-24] MEDS: Lactobacillus Acidophilus 500 MU Cap PEG SCH ×2 (11:15→22:07)
[2018-08-24] MEDS: Bacitracin 500 Units/gm Oint Foilpak UD TOP SCH ×2 (11:30→17:53)
[2018-08-24 19:14] LABS: ALB/GLOB RATIO 0.8 (1.0-2.1); ALBUMIN 2.8 g/dL (3.5-5.0); CALCIUM 7.8 mg/dl (8.6-10.4)
[2018-08-24 21:35] LABS: INR 1.9; PROTHROMBIN TIME 21.2 SECONDS (9.7-12.2)
[2018-08-24 22:11] LABS: HEPATITIS B SURFACE AG Negative (NEGATIVE)
[2018-08-24 22:17] LABS: HEPATITIS A IGM NEGATIVE (NEGATIVE); HEPATITIS B CORE AB NEGATIVE (NEGATIVE)
[2018-08-24 22:29] LABS: HEPATITIS C ANTIBODY NEGATIVE (NEGATIVE)
[2018-08-25] MEDS: (Novolog) Insulin Aspart, Recombinant 100 u/ml 10 ml vial SC SCH ×4 (00:55→19:23)
[2018-08-25] MEDS: Albuterol-Ipratrop 3 mg / 0.5 (3 ml) UD INH SCH ×3 (01:16→19:47)
[2018-08-25] MEDS: Acetylcysteine 20% Inhal Soln (4ml) INH SCH (01:16)
[2018-08-25] MEDS: Meropenem 500 MG in Sodium Chloride 0.9% 100 ML IVPB SCH ×3 (03:33→20:00)
[2018-08-25 06:44] LABS: BASO # 0.1 K/uL (0.0-0.2); BASO % 0.8 % (0.0-2.0); EOS # 0.1 K/uL (0.0-0.7); EOS % 1.9 % (0.0-4.0); HEMOGLOBIN 9.3 g/dL (11.0-16.0); LYMPH # 0.8 K/uL (1.0-4.3); LYMPH % 11.3 % (20.0-40.0); MEAN CELL VOLUME 89.2 fL (81.0-99.0); MEAN CORPUSCULAR HEMOGLOBIN 29.5 pg (27.0-31.0); MEAN PLATELET VOLUME 8.7 fL (7.2-11.7); MONO # 0.4 K/uL (0.0-0.8); MONO % 5.4 % (0.0-10.0); NEUT # 5.6 K/uL (1.8-7.0); NEUT % 80.6 % (50.0-75.0); NRBC % 0.5 % (0.0-2.0); RBC 3.15 Mil/uL (3.80-5.20); RED CELL DISTRIBUTION WIDTH 17.8 % (11.5-14.5)
[2018-08-25 07:15] LABS: ALB/GLOB RATIO 0.8 (1.0-2.1); ALBUMIN 2.6 g/dL (3.5-5.0); CALCIUM 7.3 mg/dl (8.6-10.4)
--- NOTE | 2018-08-25 07:28 | CP.PCM.PN ---
Subjective - Date & Time of Evaluation Date of Evaluation: 08/25/18 Time of Evaluation: 07:28 - Subjective Subjective: Hospitalist Service Pt seen and examined at bedside. Pt appears less active than usual, no acute events overnight as per nursing. Objective - Vital Signs/Intake and Output Vital Signs (last 24 hours): Temp Pulse Resp BP Pulse Ox 97.5 F L 99 H 21 142/86 100 08/25/18 04:00 08/25/18 04:00 08/25/18 04:00 08/25/18 04:00 08/25/18 04:00 Intake and Output: 08/25/18 08/25/18 06:59 18:59 Intake Total 930 Output Total 2 Balance 928 - Medications Medications: Current Medications Acetaminophen (Tylenol 650mg/20.3ml Solution Ud) 650 mg PEG Q6 PRN Last Admin: 08/18/18 02:10 Dose: 650 mg Acetylcysteine (Acetylcysteine 20%) 4 ml INH RQ6 [facility] Last Admin: 08/25/18 01:16 Dose: 4 ml Albuterol/Ipratropium (Duoneb 3 Mg/0.5 Mg (3 Ml) Ud) 3 ml INH RQ6 [facility] Last Admin: 08/25/18 01:16 Dose: 3 ml Ascorbic Acid (Vitamin C 500 Mg Tab) 1,000 mg NG DAILY [facility] Last Admin: 08/24/18 10:00 Dose: 1,000 mg Bacitracin (Bacitracin) 1 ea TOP BID [facility] Last Admin: 08/24/18 17:53 Dose: 1 ea Dextrose (Dextrose 50% Inj) 0 ml IVP .STAT PRN; Protocol PRN Reason: Hypoglycemia Protocol Dextrose (Glutose 15) 0 gm PO .ONCE PRN; Protocol PRN Reason: Hypoglycemia Protocol Ergocalciferol (Drisdol 50,000 Intl Units Cap) 1 cap GT Q7D [facility] Stop: 10/06/18 19:16 Last Admin: 08/18/18 23:34 Dose: 1 cap Glucagon (Glucagen Diagnostic Kit) 0 mg IM .STAT PRN; Protocol PRN Reason: Hypoglycemia Protocol Meropenem 500 mg/ Sodium (Chloride) 100 mls @ 100 mls/hr IVPB Q8H [facility] Last Admin: 08/25/18 03:33 Dose: 100 mls/hr Vancomycin HCl 1 gm/ Sodium (Chloride) 250 mls @ 166.7 mls/hr IVPB Q12H [facility]; Protocol Last Admin: 08/25/18 02:29 Dose: 166.7 mls/hr Dextrose (Dextrose 5% In Water 1000 Ml) 1,000 mls @ 0 mls/hr IV .Q0M PRN; Protocol PRN Reason: Hypoglycemia Protocol Micafungin Sodium 100 mg/ (Sodium Chloride) 100 mls @ 100 mls/hr IV Q24H [facility]; Protocol Last Admin: 08/23/18 21:20 Dose: 100 mls/hr Insulin Aspart (Novolog) 0 unit SC Q6 [facility]; Protocol Last Admin: 08/25/18 05:23 Dose: 4 units Insulin Glargine (Lantus) 15 unit SC Q12 [facility] Last Admin: 08/23/18 10:39 Dose: Not Given Lactobacillus Acidophilus (Bacid Acidophilus) 1 cap PEG Q12 [facility] Last Admin: 08/24/18 22:07 Dose: 1 cap Methimazole (Tapazole) 20 mg PO Q8 [facility] Last Admin: 08/25/18 05:20 Dose: 20 mg Multivitamins (Hexavitamin) 1 tab PEG DAILY [facility] Last Admin: 08/24/18 11:10 Dose: 1 tab Pantoprazole Sodium (Protonix Inj) 40 mg IVP Q12H [facility] Last Admin: 08/25/18 01:00 Dose: 40 mg Propranolol HCl (Inderal) 5 mg PEG TID [facility] Last Admin: 08/22/18 18:16 Dose: Not Given Rosuvastatin Calcium (Crestor) 5 mg PO HS [facility] Last Admin: 08/23/18 21:26 Dose: 5 mg Vitamin A (Vitamin A & D Oint Ud Foilpak) 1 ea TOP BID [facility] Last Admin: 08/24/18 17:52 Dose: 1 ea Zolpidem Tartrate (Ambien) 5 mg PEG HS [facility] Last Admin: 08/23/18 21:19 Dose: 5 mg - Labs Labs: 08/25/18 06:23 08/25/18 06:20 PT 21.2 SECONDS (9.7-12.2) H 08/24/18 21:16 INR 1.9 08/24/18 21:16 APTT 28 SECONDS (21-34) 08/24/18 21:16 Assessment and Plan - Assessment and Plan (Free Text) Assessment: 52yo F originally admitted to the ICU for Septic shock 2/2 to PNA/UTI worsened by embolic stroke, cardiac arrest, and anoxic brain injury Septic Shock secondary to Pneumonia and Urinary Tract Infection * Infectious Disease (Dr. Brock) on case-->help appreciated * Merrem 500mg q8 IVPB * Tmax 101F (08/07/18); last fever, no elevated white count * Patient is off pressors. Completed IV abx for aspiration pneumonia and on PO abx for latest urinary tract infection * 08/24 Neg repeat blood cultures * CXR 08/23 new RLL infiltrate * Trach Sputum grew Psuedomonas Transaminitis LFTs at highest >40k Trending down today consulting GI f/u recs Dr Chiang Hold micfungin, statin and tylenol avoid hepotoxic drugs Dysfunctional Uterine bleeding -patient has thickened endometrial stripe and dysfunctional uterine bleeding -patient will ultimately need hysterectomy; however poor surgical candidate -re-consult OBGYN in the future; will monitor hgb -monitor number of pads of vaginal bleeding -holding heparin -Transfused 1 unit of PRBCs LLE DVT * Bilateral LE Dopplers Neg 08/21 * Heparin 5000u sc q12 held * unable to anticoagulate due to vaginal bleeding * Vicky VascSx : IVC today 08/14 Anoxic Encephalopathy * Code Blue 07/10 and 07/20 * Pt GCS 9 * CT head: no acute intracranial pathology. Age-related changes. no significant interval change. * Given 1g IVP Morphine post op agitation * Acute Respiratory Failure leading to chronic respiratory failure Pulmonary Edema * Patient underwent tracheostomy 07/24/18 * Patient had tolerated trach collars last weekend thru Tuesday; however she has been on vent for the past three days. When I spoke with the Rn, patient is failed on weaning off vent with Respiratory therapy * Pulmonary (Dr. Lozada) on board-->assisting with weaning from trach on vent to trach collar * Nursing instructed to clean site of trach insertion * Duonebs 3ml Inh Q6H * d/c Mucomyst * 08/22 CXR RLL new infiltrates patient continues to fail daily CPAP-->trach collar weaning Ventricular Tachycardia w/ Thrombus * Code Blue 07/10: SVT==>VT required amiodarone, magnesium, one shock delivered * Code Blue 07/20: vtach s/p amiodarone, fluid, calcium gluconate, required compressions and shock * Cardiology Dr Francisco on case help appreciated * No cath needed. * Medical management * No chemical anticoagulation in light of bleeding episodes (patient has dysfunction uterine bleeding required blood transfusions; Ob has been consulted earlier in the hospitalization to inpatient workup)-->recommending heparin 5000 unit subq8 (DVT ppx dose) and aspirin 81mg PO daily; likely thrombus is organized a month of anticoagulation; risk is due to bleeding against stroke * Propranolol held * Heparin held * pending official report of repeat echo Diabetes-->chronic * Glucose dropped to 41, held insulin d50 amp given * Novolog sc per protocol * HgBA1c: 7.8 * Lantus held * Hypoglycemic protocol * Accuchecks Q6H Acute on Chronic Renal Failure * Nephrology (Dr. Hyde) on board--> help appreciated * Patient will likely not need dialysis * mildly improving Hyperthyroidism? Low TSH, and Free T4 Thyroid Storm * Note Thyroid studies taken before amiodarone was given (please advised this is not amiodarone induced her levels were abnormal prior) * Patient does not have prior thyroid history * Endocrinology (Dr. 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 She will need outpatient FNA Bx of the complex Left Lobe cyst (please see full report) * Methimazole 20mg PO TID * Monitor LFTs Anemia Likely Secondary to Chronic Diseases * Iron normal, TIBC low, Iron Saturation normal, Ferritin normal * Stool occult blood negative * B12 normal * Folate Normal * Transfused 1 unit PRBC 07/22/18, 2 unit of PRBC 08/13/18 1 unit on 08/17/18 * IVC filter in 08/23 * no pharmacologic anticoag Vitamin D deficiency * 50,000 international units once a week (3 doses given so far) * Restart Vitamin D 50,000 IU once a week for 9 weeks (on 08/18/18) Prophylactic measure * IVC filter in 08/23 * Protonix 40mg PO BID * Lactobacillus 1 cap PO BID * Vitamin C 1,000 NG 1x/day * s/p Trach and Peg * Bilateral SCDs * Peg feedings * Change to Pulmcar 40cc/hr * patient had frequent BMs on prior formula; no diarrhea; we have spoken with dietary to change it * PICC Line 07/31/18 * Heparin held Disposition: * IVC filter in 08/23 * transfused 1 unit of PRBC * Hold Propanolol * Hold hepatotoxic drugs * Transaminitis downtrending Case discussed and seen with Dr. Leahy
--- NOTE | 2018-08-25 08:34 | OP ---
PROCEDURE DATE: 08/23/2018 PROCEDURE: Fiberoptic bronchoscopy with bronchoalveolar lavage. INDICATION: Right lung pneumonia/infiltrate. Fiberoptic bronchoscopy procedure was done after obtaining consent from explaining the risks and benefits. DESCRIPTION OF PROCEDURE: The bronchoscope was passed through the endotracheal tube into the trachea. The main key was sharp. First, the bronchoscope passed onto the left side. Whitish curd like secretion noted coating the whole mucosa of the right and the left side. Bronchoalveolar lavage was done from the right lower lobe. The patient tolerated the procedure well. Errol Lozada MD
--- NOTE | 2018-08-25 09:21 | CP.PCM.PN ---
Subjective - Date & Time of Evaluation Date of Evaluation: 08/25/18 Time of Evaluation: 09:15 - Subjective Subjective: Medical Attending Note: Patient is lethargic. unable to ROS secondary to clinical condition. patient is warm to touch. Objective - Vital Signs/Intake and Output Vital Signs (last 24 hours): Temp Pulse Resp BP Pulse Ox 97.6 F 81 14 138/85 100 08/25/18 08:00 08/25/18 08:00 08/25/18 08:00 08/25/18 08:00 08/25/18 08:00 Intake and Output: 08/25/18 08/25/18 06:59 18:59 Intake Total 930 Output Total 2 Balance 928 - Medications Medications: Current Medications Albuterol/Ipratropium (Duoneb 3 Mg/0.5 Mg (3 Ml) Ud) 3 ml INH RQ6 [facility] Last Admin: 08/25/18 01:16 Dose: 3 ml Ascorbic Acid (Vitamin C 500 Mg Tab) 1,000 mg NG DAILY [facility] Last Admin: 08/24/18 10:00 Dose: 1,000 mg Bacitracin (Bacitracin) 1 ea TOP BID [facility] Last Admin: 08/24/18 17:53 Dose: 1 ea Dextrose (Dextrose 50% Inj) 0 ml IVP .STAT PRN; Protocol PRN Reason: Hypoglycemia Protocol Dextrose (Glutose 15) 0 gm PO .ONCE PRN; Protocol PRN Reason: Hypoglycemia Protocol Ergocalciferol (Drisdol 50,000 Intl Units Cap) 1 cap GT Q7D [facility] Stop: 10/06/18 19:16 Last Admin: 08/18/18 23:34 Dose: 1 cap Glucagon (Glucagen Diagnostic Kit) 0 mg IM .STAT PRN; Protocol PRN Reason: Hypoglycemia Protocol Meropenem 500 mg/ Sodium (Chloride) 100 mls @ 100 mls/hr IVPB Q8H [facility] Last Admin: 08/25/18 03:33 Dose: 100 mls/hr Vancomycin HCl 1 gm/ Sodium (Chloride) 250 mls @ 166.7 mls/hr IVPB Q12H [facility]; Protocol Last Admin: 08/25/18 02:29 Dose: 166.7 mls/hr Dextrose (Dextrose 5% In Water 1000 Ml) 1,000 mls @ 0 mls/hr IV .Q0M PRN; Protocol PRN Reason: Hypoglycemia Protocol Micafungin Sodium 100 mg/ (Sodium Chloride) 100 mls @ 100 mls/hr IV Q24H [facility]; Protocol Last Admin: 08/23/18 21:20 Dose: 100 mls/hr Sodium Chloride (Sodium Chloride 0.9%) 1,000 mls @ 50 mls/hr IV .Q20H [facility] Insulin Aspart (Novolog) 0 unit SC Q6 [facility]; Protocol Last Admin: 08/25/18 05:23 Dose: 4 units Insulin Glargine (Lantus) 15 unit SC Q12 [facility] Last Admin: 08/23/18 10:39 Dose: Not Given Lactobacillus Acidophilus (Bacid Acidophilus) 1 cap PEG Q12 [facility] Last Admin: 08/24/18 22:07 Dose: 1 cap Methimazole (Tapazole) 20 mg PO Q8 [facility] Last Admin: 08/25/18 05:20 Dose: 20 mg Multivitamins (Hexavitamin) 1 tab PEG DAILY [facility] Last Admin: 08/24/18 11:10 Dose: 1 tab Pantoprazole Sodium (Protonix Inj) 40 mg IVP Q12H [facility] Last Admin: 08/25/18 01:00 Dose: 40 mg Propranolol HCl (Inderal) 5 mg PEG TID [facility] Last Admin: 08/22/18 18:16 Dose: Not Given Rosuvastatin Calcium (Crestor) 5 mg PO HS [facility] Last Admin: 08/23/18 21:26 Dose: 5 mg Zolpidem Tartrate (Ambien) 5 mg PEG HS [facility] Last Admin: 08/23/18 21:19 Dose: 5 mg - Labs Labs: 08/25/18 06:23 08/25/18 06:20 PT 21.2 SECONDS (9.7-12.2) H 08/24/18 21:16 INR 1.9 08/24/18 21:16 APTT 28 SECONDS (21-34) 08/24/18 21:16 - Constitutional Appears: Unkempt, Cachectic, Chronically Ill - Head Exam Head Exam: NORMAL INSPECTION - Eye Exam Eye Exam: EOMI - ENT Exam ENT Exam: Mucous Membranes Dry - Respiratory Exam Respiratory Exam: Decreased Breath Sounds, Rhonchi, NORMAL BREATHING PATTERN - Cardiovascular Exam Cardiovascular Exam: REGULAR RHYTHM, +S1, +S2 - GI/Abdominal Exam GI & Abdominal Exam: Distended, Soft, Normal Bowel Sounds. absent: Tenderness, Rebound Additional comments: + peg - Extremities Exam Extremities Exam: absent: Pedal Edema, Tenderness Additional comments: muscle atrophy - Neurological Exam Additional comments: lethargic - Skin Skin Exam: Dry, Intact, Normal Color, Warm Assessment and Plan (1) Septic shock Status: Acute (2) Acute respiratory failure Status: Acute (3) Urinary tract infection Status: Acute (4) Acute renal failure Status: Acute (5) Aspiration pneumonia Status: Acute (6) Diabetes mellitus Status: Chronic (7) Ventricular arrhythmia Status: Acute (8) Hyperthyroidism Status: Acute (9) Anemia Status: Acute (10) Prophylactic measure Status: Acute Attending/Attestation - Attestation I have personally seen and examined this patient.: Yes I have fully participated in the care of the patient.: Yes I have reviewed all pertinent clinical information, including history, physical exam and plan: Yes Notes (Text): Patient underwent IVC filter by surgery team given prior hx of DVT POD 2 Patient's sputum culture from trach noted for pseudomonas. Patient underwent s/p bronchoscopy POD 2. Elevated LFTS Yesteday. I d/c statin, benadryl, ativan, micafungin, ambien yesterday. Continue to monitor liver function tests. Pending INR. Lantus was held since 08/23. Feedings resumed post OR. Followup bronchoscopy cultures. Patient is on Meropenem and Vancomycin. Elevated Procalcitonin: 3.97 Repeat Blood cultures/Stool studies/C.dif Abdominal US in light of LFTS LFTS suspected to medication Monitor for sepsis in light of new pneumonia and elevated procalcitonin 1) Septic Shock secondary to Pneumonia and Urinary Tract Infection New Pneumonia-->pseudomonas Assessment/Plan * Infectious Disease (Dr. Brock) on board-->help appreciated * Trach Aspirate: Psuedomonas * s/p bronchoscopy (08/23/18) * Pseudomonas aerguinosa * dictated by dr maciel * Chest xray from 08/22/18 noted for new right lower lobe infiltrate pneumonia. * Chest xray (08/23/18): improviing bibasilar airspace disease w mild residual bilaterally * Start Meropenem 500 gram IV Q 8H (active since 08/23/18) * Start Vancomycin 1 gram IV Q12H (active since 08/23/18) * HELD Micafungin 100mg IV Q24H (active since 08/23-)-->secondary to RISE in LFTs on 08/24/18 * Procalciton: elevated (3.97) * Blood culture (08/23): no growth after 24hours * Blood culture (08/25): ordered * Repeat urine * Will need to f/u with ID regarding adjusting abx given transaminitis 2) Transminitis * Hepatitis serology negative * Ammonia: normal * elevated INR--> vitamin K 08/24 * 08/24: off statin, benadryl, benzo, ambien, and micafungin (gave dose of 08/23) * Continue to monitor LFTs; suspected medication induced 2) Anoxic Encephalopathy Assessment/Plan * Code Blue 07/10 and 07/20 * Patient prior knowledge of 5 languages per but does not follow commands; I did speak with the and as for him to speak with her and does not follow with him. Later with his nurse, Martin Rider patient noteably more agitated when she is having frequent bms or needs to be washed and is unable to communicate her needs because of limited of language. * I did speak with Dr. Pham last weekin regards to reset patient's sleep wake cycle--> her pattern tends to be she is agitated at night when her is not present (her reliable social cue) receives benzo/haldol/seroquel and becomes very lethargic in the morning which presents rehab from working with her. Patient noted per nursing staff to sleep with Ambien alone. D/c Benadryl. Unable to get MRI given she remains on trach on vent. * CT head: no acute intracranial pathology. Age-related changes. no significant interval change. 3) Acute Respiratory Failure Pulmonary Edema Assessment/Plan * Patient underwent tracheostomy 07/24/18 * Patient had tolerated trach collars last weekend thru Tuesday 08/14; however she has been on vent to trach. Patient has been unable to be weaned off vent. * Pulmonary (Dr. Maciel) on board-->assisting with weaning from trach on vent to trach collar * Duonebs 3ml Inh Q6H * Add Mucomyst to reduce secretions * Chest xray from 08/22/18 noted for new right lower lobe infiltrate pneumonia. * Chest xray (08/23/18): improviing bibasilar airspace disease w mild residual bilaterally 4) Ventricular Tachycardia NSTEMI Apical Thrombus LLE DVT Assessment/Plan * Code Blue 07/10: SVT==>VT required amiodarone, magnesium, one shock delivered * Code Blue 07/20: vtach s/p amiodarone, fluid, calcium gluconate, required compressions and shock * Cardiology Dr Francisco on case help appreciated * No cath needed. * Medical management * No chemical anticoagulation in light of bleeding episodes (patient has dysfunction uterine bleeding required blood transfusions; Ob has been consulted earlier in the hospitalization to inpatient workup)-->recommending heparin 5000 unit subq8 (DVT ppx dose) and aspirin 81mg PO daily; likely thrombus is organized a month of anticoagulation; risk is due to bleeding against stroke * d/c Propranolol 5mg PO TID (hold SBP<100 and HR<60) * Eliquis d/c bleeding and anemia-->dvt ppx and aspirin * Echo discussed with Dr. Francisco, patient does have residual clot-->aware we cannot anticoagulate given heavy vaginal bleeding; if patient can tolerate possible aspirin 4) VRE Urinary Tract Infection (resolved) Assessment/Plan * Zyvox 600mg PO BID for 7 days since Tuesday 08/14- per ID for VRE * OFF Contact isolation 5) Diabetes-->chronic Assessment/Plan * HgBA1c: 7.8 * Hypoglycemic protocol * held Lantus 15 units subcutaneous at bedtime Q12 * Hypoglycemic 08/23/18 AM * Accuchecks Q4H * off Crestor 5mg POqHS secondary to LFTs 6) Acute on Chronic Renal Failure Assessment/Plan * Nephrology (Dr. Hyde) on board--> help appreciated * Patient will likely not need dialysis * mildly improving 7) Hyperthyroidism? Low TSH, and Free T4 Thyroid Storm Assessment/Plan * Note Thyroid studies taken before amiodarone was given (please advised this is not amiodarone induced her levels were abnormal prior) * Patient does not have prior thyroid history * Endocrinology (Dr. 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 She will need outpatient FNA Bx of the complex Left Lobe cyst (please see full report) * Methimazole 20mg PO TID * off Propranolol 5 mg PO TID due to hypotension * Monitor LFTs 8) Anemia Likely Secondary to Chronic Diseases Assessment/Plan * Iron normal, TIBC low, Iron Saturation normal, Ferritin normal * Stool occult blood negative * B12 normal * Folate Normal * Transfused 1 unit PRBC 07/22/18, 2 unit of PRBC 08/13/18 1 unit on 08/17/18, 1 unit 08/23/18 * Patient has been seen by OB Hospitalist; no contraindication to anticoagulation * Case discussed with nuclear chemistry technician recommending against eliquis in light of bleeding; recommending for DVT ppx and aspirin 9) Vitamin D deficiency Assessment plan * 50,000 international units once a week (3 doses given so far) * Restart Vitamin D 50,000 IU once a week for 9 weeks (on 08/18/18) 10) Thrombocytopenia-->resolved Assessment plan * HIT/RUSTY were negative 11) 13 mm Left Adrenal Nodule * As seen on CT Chest 07/16/18 * Will need outpatient follow up for cross sectional imaging for better characterization 12) Hypernatremia-->resolved * Free water 250 ml 3x/day via OGT * Na now normal 13) LLE DVT * Eliquis 5 mg PO BID d/c 08/17 * Acute thrombosis of the left common femoral and femoral veins with severe reduction of the venous return on 07/18/18 venous doppler * Patient had completed one month on Eliquis; however she continues to have dysfunction uterine bleeding; cardiology is recommending against eliquis for thrombus given bleeding risk * repeat doppler to see if DVT has resolved by ultrasound repeat * s/p IVC filter (08/23/18) 14) Deconditioning * Patient needs continued PT/OT * I did speak with Dr. Pham 08/18 in regards to reset patient's sleep wake cyc le--> her pattern tends to be she is agitated at night when her is not present (her reliable social cue) receives benzo/haldol/seroquel and becomes very lethargic in the morning which presents rehab from working with her.Ambien currently helps her to sleep at Note Patient is connected to vent. She is unable to get off vent keeps failing trial. Patient was last on trach collar on 08/12. She is unable to get the MRI because the vent does not fit in the MRI. * Respiratory attempting to wean but remains on vent * 08/24: off ambien/benadryl secondary to elevated LFTs 15) Prophylactic measure * Protonix 40mg IVP BID * Lactobacillus 1 cap PO BID * MVI 1x/day * Vitamin C 1,000 NG 1x/day * s/p Trach and Peg * SCD on Right and contraindicated on Left due to DVT * Peg feedings * Pulmcar 40cc/hr * patient had frequent BMs on prior formula; no diarrhea; we have spoken with dietary to change it on 08/19/18 * PICC Line 07/31/18 * Note: speak to patient in alexis to assess neurologic status-->she does follow sometimes * OFF Ambien 5mg POqHS given LFTS * s/p bronchoscopy 08/23 * s/p IVC filter 08/23 Disposition: * off anticoagulation given H/H drop suspected to dysfunctional uterine bleeding; if there is a drop by 3-4-->may need hysterectomy * s/p ivc filter POD 2 * s/p bronchoscopy-->f/u cultures * New sputum culture with chest xray 08/22 for new pneumonia-->start IV abx * will need suctioning * Psuedomonas-->on Meropenem-->will need to f/u with ID if need to switch in light of LFTs * per cardio, dvt ppx/aspirin for cardiac thrombus chemical anticoagulation stopped given h/h drops--<held secondary to elevated INR * pallative care consult for goals of care
[2018-08-25] MEDS: Bacitracin 500 Units/gm Oint Foilpak UD TOP SCH ×2 (09:53→19:21)
[2018-08-25] MEDS: Lactobacillus Acidophilus 500 MU Cap PEG SCH ×2 (09:54→22:00)
[2018-08-25] MEDS: Multiple Vitamins Tab PEG SCH (09:54)
[2018-08-25 10:27] LABS: INR 1.7; PROTHROMBIN TIME 18.9 SECONDS (9.7-12.2)
[2018-08-25] MEDS: Sodium Chloride 0.9% 1,000 ML IV SCH (12:18)
[2018-08-25] MEDS ORDERED: Phytonadione 10 mg/ml Inj (Adult) SC STA (13:23)
[2018-08-25] MEDS ORDERED: Phytonadione 10 mg/ml Inj (Adult) SC ONE (15:00)
--- NOTE | 2018-08-25 15:10 | CT ---
Date of service: 08/25/2018 PROCEDURE: CT Abdomen and Pelvis without intravenous contrast HISTORY: R/O HEPATIC VEIN THROMBOSIS COMPARISON: Comparison is made to the previous study dated 07/08/2018 TECHNIQUE: Axial and reformatted coronal and sagittal CT images of the abdomen and pelvis were obtained without IV or oral contrast administration.. Contrast dose: 0 IV Radiation dose: Total exam DLP = 901.29 mGy-cm. This CT exam was performed using one or more of the following dose reduction techniques: Automated exposure control, adjustment of the mA and/or kV according to patient size, and/or use of iterative reconstruction technique. FINDINGS: LOWER THORAX: There are bilateral pleural effusions noted. Bilateral lower lobe atelectasis are also noted. There is a small pericardial effusion. LIVER: The liver demonstrate heterogeneous attenuation with patchy foci of relatively low density compared to the rest of the liver parenchyma. The evaluation for possible mass or hepatic vein thrombosis is limited without IV contrast administration. GALLBLADDER AND BILE DUCTS: The gallbladder is contracted. PANCREAS: Unremarkable. No gross lesion or ductal dilatation. SPLEEN: Unremarkable. ADRENALS: Again noted is soft tissue nodule at the left adrenal gland measures 1.4 centimeter. KIDNEYS AND URETERS: Unremarkable. No hydronephrosis. No solid mass. Again noted is low-attenuation exophytic lesion from midpole of the left kidney measures 1.2 centimeter. VASCULATURE: The IVC filter is seen in place. The aorta is normal in caliber. Few scattered small aortic atherosclerotic calcification are present.. BOWEL: There is gastrostomy tube in place.. No obstruction. No gross mural thickening. APPENDIX: Unremarkable. Normal appendix. PERITONEUM: Unremarkable. No free fluid. No free air. LYMPH NODES: Unremarkable. No enlarged lymph nodes. BLADDER: The urinary bladder is distended contains high attenuation fluid REPRODUCTIVE: The uterus is mildly enlarged heterogeneous. There is small amount of air in the uterine cervix or upper vagina. BONES: No acute fracture. OTHER FINDINGS: None. IMPRESSION: Limited evaluation for possible hepatic vein thrombosis without IV contrast administration. If clinically warranted enhanced CT or ultrasound Doppler study may be obtained. Heterogeneous attenuation of the liver. Redemonstrated is 1.3 centimeter soft tissue nodule at the left adrenal gland. Distended urinary bladder contains high attenuation fluid. Correlate clinically for possible hematuria.
--- NOTE | 2018-08-25 16:38 | CP.PCM.PN ---
Subjective - Date & Time of Evaluation Date of Evaluation: 08/25/18 Time of Evaluation: 09:00 - Subjective Subjective: events noted at bedside still with trach secretions LFT's noted Mycamine on hold Objective - Vital Signs/Intake and Output Vital Signs (last 24 hours): Temp Pulse Resp BP Pulse Ox 98 F 99 H 20 147/80 100 08/25/18 12:00 08/25/18 12:00 08/25/18 12:00 08/25/18 12:00 08/25/18 12:00 Intake and Output: 08/25/18 08/25/18 06:59 18:59 Intake Total 930 Output Total 2 Balance 928 - Medications Medications: Current Medications Albuterol/Ipratropium (Duoneb 3 Mg/0.5 Mg (3 Ml) Ud) 3 ml INH RQ6 [facility] Last Admin: 08/25/18 07:45 Dose: 3 ml Ascorbic Acid (Vitamin C 500 Mg Tab) 1,000 mg NG DAILY [facility] Last Admin: 08/25/18 09:53 Dose: 1,000 mg Bacitracin (Bacitracin) 1 ea TOP BID [facility] Last Admin: 08/25/18 09:53 Dose: 1 ea Dextrose (Dextrose 50% Inj) 0 ml IVP .STAT PRN; Protocol PRN Reason: Hypoglycemia Protocol Dextrose (Glutose 15) 0 gm PO .ONCE PRN; Protocol PRN Reason: Hypoglycemia Protocol Ergocalciferol (Drisdol 50,000 Intl Units Cap) 1 cap GT Q7D [facility] Stop: 10/06/18 19:16 Last Admin: 08/18/18 23:34 Dose: 1 cap Glucagon (Glucagen Diagnostic Kit) 0 mg IM .STAT PRN; Protocol PRN Reason: Hypoglycemia Protocol Meropenem 500 mg/ Sodium (Chloride) 100 mls @ 100 mls/hr IVPB Q8H [facility] Last Admin: 08/25/18 12:18 Dose: 100 mls/hr Dextrose (Dextrose 5% In Water 1000 Ml) 1,000 mls @ 0 mls/hr IV .Q0M PRN; Protocol PRN Reason: Hypoglycemia Protocol Sodium Chloride (Sodium Chloride 0.9%) 1,000 mls @ 50 mls/hr IV .Q20H [facility] Last Admin: 08/25/18 12:18 Dose: 50 mls/hr Insulin Aspart (Novolog) 0 unit SC Q6 [facility]; Protocol Last Admin: 08/25/18 12:30 Dose: Not Given Insulin Glargine (Lantus) 15 unit SC Q12 [facility] Last Admin: 08/23/18 10:39 Dose: Not Given Lactobacillus Acidophilus (Bacid Acidophilus) 1 cap PEG Q12 [facility] Last Admin: 08/25/18 09:54 Dose: 1 cap Methimazole (Tapazole) 20 mg PO Q8 [facility] Last Admin: 08/25/18 13:06 Dose: 20 mg Multivitamins (Hexavitamin) 1 tab PEG DAILY [facility] Last Admin: 08/25/18 09:54 Dose: 1 tab Pantoprazole Sodium (Protonix Susp) 40 mg GT Q12H [facility] - Labs Labs: 08/25/18 06:23 08/25/18 06:20 PT 18.9 SECONDS (9.7-12.2) H 08/25/18 10:00 INR 1.7 08/25/18 10:00 APTT 28 SECONDS (21-34) 08/24/18 21:16 Assessment and Plan (1) NEHA (acute kidney injury) Status: Acute (2) Acute renal failure Status: Acute (3) Acute respiratory failure Status: Acute (4) Aspiration pneumonia Status: Acute (5) Septic shock Status: Acute (6) Urinary tract infection Status: Acute (7) Diabetes mellitus Status: Chronic
--- NOTE | 2018-08-25 17:50 | US ---
Date of service: 08/25/2018 HISTORY: transaminitis COMPARISON: Comparison is made to the previous CT dated 08/25/2018. TECHNIQUE: Sonographic evaluation of the abdomen. FINDINGS: LIVER: Measures 11.2 cm. Normal echogenicity of the liver parenchyma. No mass. No intrahepatic bile duct dilatation. GALLBLADDER: Unremarkable. No gallstones. COMMON BILE DUCT: Measures 4 mm. No stones. No dilatation. PANCREAS: Unremarkable as visualized. No mass. No ductal dilatation. RIGHT KIDNEY: Measures 8.6 x 4.2 x 4.6cm. Normal echogenicity. No calculus, mass, or hydronephrosis. There is a cyst seen at right kidney measures 1.4 x 2.2 x 1.9 centimeter. LEFT KIDNEY: Measures 9.5 x 4.7 x 5.5cm. Normal echogenicity. No calculus, mass, or hydronephrosis. There is a cyst at the lower pole of the left kidney measures 1.3 centimeter. There is also cyst at the upper pole measures 1.3 centimeter. SPLEEN: Normal in size and contour. No mass. AORTA: No aneurysmal dilatation. IVC: Unremarkable. OTHER FINDINGS: Bilateral pleural effusions are noted. The portal vein is patent and demonstrate normal hepatopetal blood flow. IMPRESSION: The portal vein is patent. No evidence of cholelithiasis or cholecystitis. No evidence of hydronephrosis. Bilateral pleural effusions.
--- NOTE | 2018-08-25 19:41 | CARD ---
APPROVED REPORT Date of service: 08/17/2018 EXAM: LIMITED Two-dimensional echocardiogram. Other Information Quality : [employer] : INDICATION Thrombus <Conclusion> LIMITED STUDY LV APICAL CLOT. NO SIGNIFICANT CHANGE FROM PREVIOUS STUDY
[2018-08-25] MEDS: Ergocalciferol 50,000 Intl Units Cap GT SCH (20:03)
[2018-08-26] MEDS: Albuterol-Ipratrop 3 mg / 0.5 (3 ml) UD INH SCH ×4 (02:25→20:47)
[2018-08-26] MEDS: Pantoprazole 40 mg Susp UD GT SCH ×3 (02:53→21:26)
[2018-08-26] MEDS: Meropenem 500 MG in Sodium Chloride 0.9% 100 ML IVPB SCH ×3 (05:55→20:42)
[2018-08-26 06:40] LABS: BASO # 0.1 K/uL (0.0-0.2); BASO % 0.9 % (0.0-2.0); EOS # 0.2 K/uL (0.0-0.7); EOS % 2.2 % (0.0-4.0); HEMOGLOBIN 10.2 g/dL (11.0-16.0); LYMPH # 1.4 K/uL (1.0-4.3); LYMPH % 14.6 % (20.0-40.0); MEAN CELL VOLUME 87.4 fL (81.0-99.0); MEAN CORPUSCULAR HEMOGLOBIN 29.5 pg (27.0-31.0); MEAN CORPUSCULAR HGB CONC 33.7 g/dL (33.0-37.0); MEAN PLATELET VOLUME 8.5 fL (7.2-11.7); MONO # 0.7 K/uL (0.0-0.8); MONO % 7.4 % (0.0-10.0); NEUT # 7.2 K/uL (1.8-7.0); NEUT % 74.9 % (50.0-75.0); NRBC % 0.4 % (0.0-2.0); RBC 3.46 Mil/uL (3.80-5.20); RED CELL DISTRIBUTION WIDTH 17.9 % (11.5-14.5); WHITE BLOOD COUNT 9.7 K/uL (4.8-10.8)
[2018-08-26 06:59] LABS: ALB/GLOB RATIO 0.8 (1.0-2.1); ALBUMIN 2.6 g/dL (3.5-5.0); BLOOD UREA NITROGEN 40 mg/dL (7-17); CALCIUM 7.9 mg/dl (8.6-10.4); GFR NON-AFRICAN AMERICAN 52
[2018-08-26 07:16] LABS: ALT/SGPT 2724 U/L (9-52); AST/SGOT 1961 U/L (14-36)
[2018-08-26] MEDS: (Novolog) Insulin Aspart, Recombinant 100 u/ml 10 ml vial SC SCH ×5 (07:23→23:50)
[2018-08-26] MEDS: Lactobacillus Acidophilus 500 MU Cap PEG SCH ×2 (09:45→23:48)
[2018-08-26] MEDS: Bacitracin 500 Units/gm Oint Foilpak UD TOP SCH ×2 (09:45→18:41)
[2018-08-26] MEDS: Multiple Vitamins Tab PEG SCH (12:18)
[2018-08-26] MEDS: Sodium Chloride 0.9% 1,000 ML IV SCH (12:21)
--- NOTE | 2018-08-26 14:51 | CP.PCM.PN ---
<Evaristo Barber - Last Filed: 08/26/18 21:20> Subjective - Date & Time of Evaluation Date of Evaluation: 08/26/18 Time of Evaluation: 14:00 - Subjective Subjective: PGY-1 Medicine progress note for Dr. Leahy Pt seen and evaluated at bedside. Pt is trach'd and PEG'd. Unable to obtain ROS secondary to clinical condition. Objective - Vital Signs/Intake and Output Vital Signs (last 24 hours): Temp Pulse Resp BP Pulse Ox 97.9 F 104 H 26 H 136/85 100 08/26/18 12:00 08/26/18 04:00 08/26/18 04:00 08/26/18 04:00 08/26/18 04:00 Intake and Output: 08/26/18 08/26/18 06:59 18:59 Intake Total 1130 Balance 1130 - Medications Medications: Current Medications Albuterol/Ipratropium (Duoneb 3 Mg/0.5 Mg (3 Ml) Ud) 3 ml INH RQ6 [facility] Last Admin: 08/26/18 13:50 Dose: 3 ml Ascorbic Acid (Vitamin C 500 Mg Tab) 1,000 mg NG DAILY [facility] Last Admin: 08/26/18 09:45 Dose: 1,000 mg Bacitracin (Bacitracin) 1 ea TOP BID [facility] Last Admin: 08/26/18 09:45 Dose: 1 ea Dextrose (Dextrose 50% Inj) 0 ml IVP .STAT PRN; Protocol PRN Reason: Hypoglycemia Protocol Dextrose (Glutose 15) 0 gm PO .ONCE PRN; Protocol PRN Reason: Hypoglycemia Protocol Ergocalciferol (Drisdol 50,000 Intl Units Cap) 1 cap GT Q7D [facility] Stop: 10/06/18 19:16 Last Admin: 08/25/18 20:03 Dose: 1 cap Glucagon (Glucagen Diagnostic Kit) 0 mg IM .STAT PRN; Protocol PRN Reason: Hypoglycemia Protocol Meropenem 500 mg/ Sodium (Chloride) 100 mls @ 100 mls/hr IVPB Q8H [facility] Last Admin: 08/26/18 12:19 Dose: 100 mls/hr Dextrose (Dextrose 5% In Water 1000 Ml) 1,000 mls @ 0 mls/hr IV .Q0M PRN; Prot ocol PRN Reason: Hypoglycemia Protocol Sodium Chloride (Sodium Chloride 0.9%) 1,000 mls @ 50 mls/hr IV .Q20H [facility] Last Admin: 08/26/18 12:21 Dose: 50 mls/hr Insulin Aspart (Novolog) 0 unit SC Q6 [facility]; Protocol Last Admin: 08/26/18 12:20 Dose: 2 units Insulin Glargine (Lantus) 15 unit SC Q12 [facility] Last Admin: 08/23/18 10:39 Dose: Not Given Lactobacillus Acidophilus (Bacid Acidophilus) 1 cap PEG Q12 [facility] Last Admin: 08/26/18 09:45 Dose: 1 cap Methimazole (Tapazole) 20 mg PO Q8 [facility] Last Admin: 08/26/18 14:46 Dose: 20 mg Multivitamins (Hexavitamin) 1 tab PEG DAILY [facility] Last Admin: 08/26/18 12:18 Dose: 1 tab Pantoprazole Sodium (Protonix Susp) 40 mg GT Q12H [facility] Last Admin: 08/26/18 09:45 Dose: 40 mg - Labs Labs: 08/26/18 06:23 08/26/18 06:27 PT 18.9 SECONDS (9.7-12.2) H 08/25/18 10:00 INR 1.7 08/25/18 10:00 APTT 28 SECONDS (21-34) 08/24/18 21:16 - Additional Findings Additional findings: - Constitutional Appears: Unkempt, Cachectic, Chronically Ill - Head Exam Head Exam: NORMAL INSPECTION - Eye Exam Eye Exam: EOMI - ENT Exam ENT Exam: Mucous Membranes Dry - Respiratory Exam Respiratory Exam: Decreased Breath Sounds, Rhonchi, NORMAL BREATHING PATTERN - Cardiovascular Exam Cardiovascular Exam: REGULAR RHYTHM, +S1, +S2 - GI/Abdominal Exam GI & Abdominal Exam: Distended, Soft, Normal Bowel Sounds. absent: Tenderness, Rebound Additional comments: + peg tube, no signs of bleeding or infection - Extremities Exam Extremities Exam: absent: Pedal Edema, Tenderness Additional comments: muscle atrophy - Neurological Exam Additional comments: lethargic, unable to follow commands - Skin Skin Exam: Dry, Intact, Normal Color, Warm Assessment and Plan - Assessment and Plan (Free Text) Assessment: This is a 52yo F originally admitted to the ICU for Septic shock 2/2 to PNA/UTI worsened by embolic stroke, cardiac arrest, and anoxic brain injury. Pt is POD 3 for IVC filter. Plan: Septic Shock secondary to Pneumonia and Urinary Tract Infection Afebrile overnight ID consulted, recs appreciated F/u abx recs due to transaminitis Trach Aspirate: Psuedomonas Bronchoscopy by Dr. Maciel (08/23/18) culture showed Pseudomonas aerguinosa Chest xray from 08/22/18 noted for new right lower lobe infiltrate pneumonia. Chest xray (08/23/18): improviing bibasilar airspace disease w mild residual bilaterally HELD Micafungin due to transaminitis F/u urine culture Blood culture (08/25) prelim shows no growth x24 hours F/u CXR in am Transaminitis Possibly secondary to hypotension Downtrending Avoid hepatotoxic medications Hep panel is negative Abd US shows bilateral pleural effusions, patent portal vein, no hydronephrosis, no GB stones or cholecystitis Abd/pelv CT shows limited evlauation of possible hepatic vein thrombosis without IV contrast administration. Distended urinary bladder, 1.2 cm soft tissue nodule at the left adrenal gland Anoxic Encephalopathy s/p code Blue 07/10 and 07/20 Pt is not at baseline as per Continue to monitor Neurology consulted, recs appreciated CT head: no acute intracranial pathology. Age-related changes. no significant interval change. Acute Respiratory Failure s/p tracheostomy 07/24/18 Dr. Maciel will continue to attepmt to wean off of vent. Unsuccessful so far. Duonebs 3ml Inh Q6H Mucomyst for secretions CXR with pnuemonia possibly contributing to respiratory failure Ventricular Tachycardia NSTEMI Apical Thrombus LLE DVT Code Blue 07/10: SVT==>VT required amiodarone, magnesium, one shock delivered Code Blue 07/20: vtach s/p amiodarone, fluid, calcium gluconate, required compressions and shock Cardiology Dr Francisco on case help appreciated No cath needed. Medical management No chemical anticoagulation in light of bleeding episodes (patient has dysfunction uterine bleeding required blood transfusions; Ob has been consulted earlier in the hospitalization to inpatient workup)-->recommending heparin 5000 unit subq8 (DVT ppx dose) and aspirin 81mg PO daily; likely thrombus is organized a month of anticoagulation; risk is due to bleeding against stroke d/c Propranolol 5mg PO TID (hold SBP<100 and HR<60) Eliquis d/c bleeding and anemia-->dvt ppx and aspirin Echo discussed with Dr. Francisco, patient does have residual clot-->aware we cannot anticoagulate given heavy vaginal bleeding; if patient can tolerate possible aspirin VRE Urinary Tract Infection Zyvox 600mg PO BID for 7 days since Tuesday 08/14- per ID for VRE OFF Contact isolation Diabetes HgBA1c: 7.8 Hypoglycemic protocol Sugars have ranged from 150-200 x 24 hours Accuchecks Q4H off Crestor 5mg PO qHS secondary to LFTs Acute on Chronic Renal Failure Nephrology (Dr. Hyde) on board--> help appreciated No indication for HD at this time Continues to improve Hyperthyroidism? Low TSH, and Free T4 Thyroid Storm Note Thyroid studies taken before amiodarone was given (please advised this is not amiodarone induced her levels were abnormal prior) Patient does not have prior thyroid history Endocrinology (Dr. Gayle) on board help appreciated Thyroid U/S 07/16/18: showed heterogenous thydroid with multiple nodules bilaterally. She will need outpatient FNA Bx of the complex Left Lobe cyst (please see full report) Methimazole 20mg PO TID off Propranolol 5 mg PO TID due to hypotension Monitor LFTs Anemia Likely Secondary to Chronic Diseases Iron normal, TIBC low, Iron Saturation normal, Ferritin normal Stool occult blood negative B12 normal Folate Normal Transfused 1 unit PRBC 07/22/18, 2 unit of PRBC 08/13/18 1 unit on 08/17/18, 1 unit 08/23/18 Patient has been seen by OB Hospitalist; no contraindication to anticoagulation Case discussed with assurance officer recommending against eliquis in light of bleeding; recommending for DVT ppx and aspirin Vitamin D deficiency 50,000 international units once a week (3 doses given so far) Restart Vitamin D 50,000 IU once a week for 9 weeks (on 08/18/18) Hypernatremia 150 today Will give free water flushes 250 mL Q6H x4 for total of 1L via PEG tube LLE DVT Eliquis 5 mg PO BID d/c 08/17 s/p IVC filter (08/23/18) Deconditioning Continue PT/OT Continue to attempt to wean off of vent PPX Protonix 40mg IVP BID Lactobacillus 1 cap PO BID MVI 1x/day Vitamin C 1,000 NG 1x/day s/p Trach and Peg SCD on Right and contraindicated on Left due to DVT Peg feedings Continue Pulmocare at 40cc/hr PICC Line 07/31/18 bronchoscopy 08/23 VC filter 08/[address] Armond Barber PGY-1 <Saira Leahy V - Last Filed: 08/27/18 17:23> Objective - Vital Signs/Intake and Output Vital Signs (last 24 hours): Temp Pulse Resp BP Pulse Ox 97.2 F L 85 16 127/77 96 08/27/18 16:00 08/27/18 16:00 08/27/18 16:00 08/27/18 16:00 08/27/18 16:00 Intake and Output: 08/27/18 08/27/18 06:59 18:59 Intake Total 2130 740 Balance 2130 740 - Medications Medications: Current Medications Albuterol/Ipratropium (Duoneb 3 Mg/0.5 Mg (3 Ml) Ud) 3 ml INH RQ6 [facility] Last Admin: 08/27/18 13:08 Dose: 3 ml Ascorbic Acid (Vitamin C 500 Mg Tab) 1,000 mg NG DAILY [facility] Last Admin: 08/27/18 09:26 Dose: 1,000 mg Bacitracin (Bacitracin) 1 ea TOP BID [facility] Last Admin: 08/27/18 09:26 Dose: 1 ea Dextrose (Dextrose 50% Inj) 0 ml IVP .STAT PRN; Protocol PRN Reason: Hypoglycemia Protocol Dextrose (Glutose 15) 0 gm PO .ONCE PRN; Protocol PRN Reason: Hypoglycemia Protocol Ergocalciferol (Drisdol 50,000 Intl Units Cap) 1 cap GT Q7D [facility] Stop: 10/06/18 19:16 Last Admin: 08/25/18 20:03 Dose: 1 cap Glucagon (Glucagen Diagnostic Kit) 0 mg IM .STAT PRN; Protocol PRN Reason: Hypoglycemia Protocol Dextrose (Dextrose 5% In Water 1000 Ml) 1,000 mls @ 0 mls/hr IV .Q0M PRN; Protocol PRN Reason: Hypoglycemia Protocol Cefepime HCl (Maxipime Iv 1 Gm Premix) 1 gm in 50 mls @ 100 mls/hr IVPB Q12H [facility]; Protocol Last Admin: 08/27/18 15:06 Dose: 100 mls/hr Insulin Aspart (Novolog) 0 unit SC Q6 [facility]; Protocol Last Admin: 08/27/18 12:22 Dose: 6 units Insulin Glargine (Lantus) 15 unit SC Q12 [facility] Last Admin: 08/23/18 10:39 Dose: Not Given Lactobacillus Acidophilus (Bacid Acidophilus) 1 cap PEG Q12 [facility] Last Admin: 08/27/18 09:26 Dose: 1 cap Methimazole (Tapazole) 20 mg PO Q8 [facility] Last Admin: 08/27/18 13:24 Dose: 20 mg Multivitamins (Hexavitamin) 1 tab PEG DAILY [facility] Last Admin: 08/27/18 09:26 Dose: 1 tab Pantoprazole Sodium (Protonix Susp) 40 mg GT Q12H [facility] Last Admin: 08/27/18 09:26 Dose: 40 mg - Labs Labs: 08/27/18 06:28 08/27/18 06:20 PT 16.8 SECONDS (9.7-12.2) H 08/27/18 06:28 INR 1.5 08/27/18 06:28 APTT 27 SECONDS (21-34) 08/27/18 06:28 Assessment and Plan (1) Septic shock Status: Acute (2) Acute respiratory failure Status: Acute (3) Urinary tract infection Status: Acute (4) Acute renal failure Status: Acute (5) Aspiration pneumonia Status: Acute (6) Diabetes mellitus Status: Chronic (7) Ventricular arrhythmia Status: Acute (8) Hyperthyroidism Status: Acute (9) Anemia Status: Acute (10) Prophylactic measure Status: Acute Attending/Attestation - Attestation I have personally seen and examined this patient.: Yes I have fully participated in the care of the patient.: Yes I have reviewed all pertinent clinical information, including history, physical exam and plan: Yes Notes (Text): This is late computer entry for 08/26/18. Patient underwent IVC filter by surgery team given prior hx of DVT POD 3 Patient's sputum culture from trach noted for pseudomonas. Patient underwent s/p bronchoscopy POD 3 Elevated LFTS are downtrending. I spoke with the Gi fellow (Dr. smith's service) given I have d/c statin, benadryl, ativan, micafungin, ambien the dya prior; will re-evaluate patient. Cubatus was held since 08/23. Feedings resumed post OR. Followup bronchoscopy cultures. Patient is on Meropenem. Vancomycin held given elevated random prior Elevated Procalcitonin: 3.97 f/u Blood cultures/Stool studies/C.dif Elevated LFTs secondary to Sepsis and/or medications Monitor for sepsis in light of new pneumonia and elevated procalcitonin 1) Septic Shock secondary to Pneumonia and Urinary Tract Infection New Pneumonia-->pseudomonas Assessment/Plan * Infectious Disease (Dr. Brock) on board-->help appreciated * Trach Aspirate: Psuedomonas * s/p bronchoscopy (08/23/18) * Pseudomonas aerguinosa * dictated by dr maciel * f/u cultures * Chest xray from 08/22/18 noted for new right lower lobe infiltrate pneumonia. * Chest xray (08/23/18): improviing bibasilar airspace disease w mild residual bilaterally * Start Meropenem 500 gram IV Q 8H (active since 08/23/18) * Start Vancomycin 1 gram IV Q12H (active since 08/23/18) * HELD Micafungin 100mg IV Q24H (active since 08/23-)-->secondary to RISE in LFTs on 08/24/18 * Procalciton: elevated (3.97) * Blood culture (08/23): f/u * Blood culture (08/25): f/u * Urine studies f/u * f/u chest xray in AM 2) Shock Liver; Transminitis * Hepatitis serology negative * Ammonia: normal * elevated INR--> vitamin K 08/24 * 08/24: off statin, benadryl, benzo, ambien, and micafungin (gave dose of 08/23) * Continue to monitor LFTs; suspected medication induced or related to low blood pressure * Gi (Dr. Smith) * discussed case with fellow 08/26/18 * Abd US shows bilateral pleural effusions, patent portal vein, no hydronephrosis, no GB stones or cholecystitis 2) Anoxic Encephalopathy Assessment/Plan * Code Blue 07/10 and 07/20 * Patient prior knowledge of 5 languages per but does not follow commands; I did speak with the and as for him to speak with her and does not follow with him. * CT head: no acute intracranial pathology. Age-related changes. no significant interval change. * suspect decline since second code blue 3) Acute Respiratory Failure Pulmonary Edema Pseudomona Pneumonia Assessment/Plan * Patient underwent tracheostomy 07/24/18 * Patient had tolerated trach collars last weekend thru Tuesday 08/14; however she has been on vent to trach. Patient has been unable to be weaned off vent. * Pulmonary (Dr. Maciel) on board-->assisting with weaning from trach on vent to trach collar * Duonebs 3ml Inh Q6H * Add Mucomyst to reduce secretions * Chest xray from 08/22/18 noted for new right lower lobe infiltrate pneumonia. * Chest xray (08/23/18): improviing bibasilar airspace disease w mild residual bilaterally * F/u chest tomorrow 4) Ventricular Tachycardia NSTEMI Apical Thrombus LLE DVT Assessment/Plan * Code Blue 07/10: SVT==>VT required amiodarone, magnesium, one shock delivered * Code Blue 07/20: vtach s/p amiodarone, fluid, calcium gluconate, required compressions and shock * Cardiology Dr Francisco on case help appreciated * No cath needed. * Medical management * No chemical anticoagulation in light of bleeding episodes (patient has dysfunction uterine bleeding required blood transfusions; Ob has been consulted earlier in the hospitalization to inpatient workup)-->recommending heparin 5000 unit subq8 (DVT ppx dose) and aspirin 81mg PO daily; likely thrombus is organized a month of anticoagulation; risk is due to bleeding against stroke * d/c Propranolol 5mg PO TID (hold SBP<100 and HR<60) * Eliquis d/c bleeding and anemia-->dvt ppx and aspirin * Echo discussed with Dr. Francisco, patient does have residual clot-->aware we cannot anticoagulate given heavy vaginal bleeding; if patient can tolerate possible aspirin 4) VRE Urinary Tract Infection (resolved) Assessment/Plan * Zyvox 600mg PO BID for 7 days since Tuesday 08/14- per ID for VRE * OFF Contact isolation 5) Diabetes-->chronic Assessment/Plan * HgBA1c: 7.8 * Hypoglycemic protocol * held Lantus 15 units subcutaneous at bedtime Q12 * Hypoglycemic 08/23/18 AM * Accuchecks Q4H * off Crestor 5mg POqHS secondary to LFTs 6) Acute on Chronic Renal Failure Assessment/Plan * Nephrology (Dr. Hyde) on board--> help appreciated * Patient will likely not need dialysis * mildly improving 7) Hyperthyroidism? Low TSH, and Free T4 Thyroid Storm Assessment/Plan * Note Thyroid studies taken before amiodarone was given (please advised this is not amiodarone induced her levels were abnormal prior) * Patient does not have prior thyroid history * Endocrinology (Dr. 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 She will need outpatient FNA Bx of the complex Left Lobe cyst (please see full report) * Methimazole 20mg PO TID * off Propranolol 5 mg PO TID due to hypotension * Monitor LFTs 8) Anemia Likely Secondary to Chronic Diseases Assessment/Plan * Iron normal, TIBC low, Iron Saturation normal, Ferritin normal * Stool occult blood negative * B12 normal * Folate Normal * Transfused 1 unit PRBC 07/22/18, 2 unit of PRBC 08/13/18 1 unit on 08/17/18, 1 unit 08/23/18 * Patient has been seen by OB Hospitalist; no contraindication to anticoagulation * Case discussed with assurance officer recommending against eliquis in light of bleeding; recommending for DVT ppx and aspirin 9) Vitamin D deficiency Assessment plan * 50,000 international units once a week (3 doses given so far) * Restart Vitamin D 50,000 IU once a week for 9 weeks (on 08/18/18) 10) Thrombocytopenia-->resolved Assessment plan * HIT/RUSTY were negative 11) 13 mm Left Adrenal Nodule * As seen on CT Chest 07/16/18 * Will need outpatient follow up for cross sectional imaging for better characterization 12) Hypernatremia * Start free fluid washes 250ml Q6 via tube feeds * Patient is on gentle Iv hydration since yesterday given low BP 13) LLE DVT * Eliquis 5 mg PO BID d/c 08/17 * Acute thrombosis of the left common femoral and femoral veins with severe reduction of the venous return on 07/18/18 venous doppler * Patient had completed one month on Eliquis; however she continues to have dysfunction uterine bleeding; cardiology is recommending against eliquis for thrombus given bleeding risk * repeat doppler to see if DVT has resolved by ultrasound repeat * s/p IVC filter (08/23/18) 14) Deconditioning * Patient needs continued PT/OT * I did speak with Dr. Pham 08/18 in regards to reset patient's sleep wake cycle--> her pattern tends to be she is agitated at night when her is not present (her reliable social cue) receives benzo/haldol/seroquel and becomes very lethargic in the morning which presents rehab from working with her.Ambien currently helps her to sleep at Note Patient is connected to vent. She is unable to get off vent keeps failing trial. Patient was last on trach collar on 08/12. She is unable to get the MRI because the vent does not fit in the MRI. * Respiratory attempting to wean but remains on vent * 08/24: off ambien/benadryl secondary to elevated LFTs 15) Prophylactic measure * Protonix 40mg IVP BID * Lactobacillus 1 cap PO BID * MVI 1x/day * Vitamin C 1,000 NG 1x/day * s/p Trach and Peg * SCD on Right and contraindicated on Left due to DVT * Peg feedings * Pulmcar 40cc/hr * patient had frequent BMs on prior formula; no diarrhea; we have spoken with dietary to change it on 08/19/18 * PICC Line 07/31/18 * Note: speak to patient in alexis to assess neurologic status-->she does follow sometimes * OFF Ambien 5mg POqHS given LFTS * s/p bronchoscopy 08/23 * s/p IVC filter 08/23 * patient is FULL CODE-->discussed with on Tuesday and today Disposition: * off anticoagulation given H/H drop suspected to dysfunctional uterine bleeding; if there is a drop by 3-4-->may need hysterectomy * s/p ivc filter POD 3 * s/p bronchoscopy-->f/u cultures * New sputum culture with chest xray 08/22 for new pneumonia-->start IV abx * will need suctioning * Psuedomonas-->on Meropenem and Vancomycin * per cardio, dvt ppx/aspirin for cardiac thrombus chemical anticoagulation stopped given h/h drops--<held secondary to elevated INR * f/u chest xray * prognosis is guarded * Full code.
[2018-08-27] MEDS: Albuterol-Ipratrop 3 mg / 0.5 (3 ml) UD INH SCH ×4 (02:18→20:32)
[2018-08-27] MEDS: Meropenem 500 MG in Sodium Chloride 0.9% 100 ML IVPB SCH ×2 (03:53→12:22)
[2018-08-27] MEDS: Sodium Chloride 0.9% 1,000 ML IV SCH (03:55)
[2018-08-27] MEDS: (Novolog) Insulin Aspart, Recombinant 100 u/ml 10 ml vial SC SCH ×3 (05:16→18:14)
[2018-08-27 06:37] LABS: BASO # 0.1 K/uL (0.0-0.2); BASO % 0.7 % (0.0-2.0); EOS % 0.3 % (0.0-4.0); HEMOGLOBIN 9.4 g/dL (11.0-16.0); LYMPH % 14.9 % (20.0-40.0); MEAN CELL VOLUME 88.7 fL (81.0-99.0); MEAN CORPUSCULAR HEMOGLOBIN 29.6 pg (27.0-31.0); MEAN CORPUSCULAR HGB CONC 33.4 g/dL (33.0-37.0); MEAN PLATELET VOLUME 8.6 fL (7.2-11.7); MONO # 0.7 K/uL (0.0-0.8); MONO % 9.5 % (0.0-10.0); NEUT # 5.2 K/uL (1.8-7.0); NEUT % 74.6 % (50.0-75.0); NRBC % 0.7 % (0.0-2.0); RBC 3.19 Mil/uL (3.80-5.20); RED CELL DISTRIBUTION WIDTH 18.1 % (11.5-14.5)
[2018-08-27 06:49] LABS: ALB/GLOB RATIO 0.7 (1.0-2.1); ALBUMIN 2.4 g/dL (3.5-5.0); CALCIUM 7.9 mg/dl (8.6-10.4)
[2018-08-27 06:54] LABS: INR 1.5; PROTHROMBIN TIME 16.8 SECONDS (9.7-12.2)
[2018-08-27] MEDS ORDERED: Metoprolol 1 mg/ml Inj IVP ONE (07:20)
[2018-08-27] MEDS ORDERED: Propranolol 1 mg/mL Inj IVP SCH (07:30)
--- NOTE | 2018-08-27 08:23 | CP.PCM.PN ---
<Evaristo Barber - Last Filed: 08/27/18 15:16> Subjective - Date & Time of Evaluation Date of Evaluation: 08/27/18 Time of Evaluation: 08:23 - Subjective Subjective: PGY-1 Medicine progress note for Dr. Leahy Pt seen and evaluated at bedside. Pt is trach'd and PEG'd. Unable to obtain ROS secondary to clinical condition. Pt noted to be tachycardic at 130 and febrile at 101 rectally prior to evaluation. Pt continues to have secretion via trach and nasal passage. Pt suctioned but with minimal return. Objective - Vital Signs/Intake and Output Vital Signs (last 24 hours): Temp Pulse Resp BP Pulse Ox 99.2 F 100 H 17 124/64 100 08/27/18 04:00 08/27/18 04:00 08/27/18 04:00 08/27/18 04:00 08/27/18 04:00 Intake and Output: 08/27/18 08/27/18 06:59 18:59 Intake Total 2130 Balance 2130 - Medications Medications: Current Medications Albuterol/Ipratropium (Duoneb 3 Mg/0.5 Mg (3 Ml) Ud) 3 ml INH RQ6 [facility] Last Admin: 08/27/18 07:57 Dose: 3 ml Ascorbic Acid (Vitamin C 500 Mg Tab) 1,000 mg NG DAILY [facility] Last Admin: 08/26/18 09:45 Dose: 1,000 mg Bacitracin (Bacitracin) 1 ea TOP BID [facility] Last Admin: 08/26/18 18:41 Dose: 1 ea Dextrose (Dextrose 50% Inj) 0 ml IVP .STAT PRN; Protocol PRN Reason: Hypoglycemia Protocol Dextrose (Glutose 15) 0 gm PO .ONCE PRN; Protocol PRN Reason: Hypoglycemia Protocol Ergocalciferol (Drisdol 50,000 Intl Units Cap) 1 cap GT Q7D [facility] Stop: 10/06/18 19:16 Last Admin: 08/25/18 20:03 Dose: 1 cap Glucagon (Glucagen Diagnostic Kit) 0 mg IM .STAT PRN; Protocol PRN Reason: Hypoglycemia Protocol Meropenem 500 mg/ Sodium (Chloride) 100 mls @ 100 mls/hr IVPB Q8H [facility] Last Admin: 08/27/18 03:53 Dose: 100 mls/hr Dextrose (Dextrose 5% In Water 1000 Ml) 1,000 mls @ 0 mls/hr IV .Q0M PRN; Protocol PRN Reason: Hypoglycemia Protocol Sodium Chloride (Sodium Chloride 0.9%) 1,000 mls @ 50 mls/hr IV .Q20H [facility] Last Admin: 08/27/18 03:55 Dose: Not Given Insulin Aspart (Novolog) 0 unit SC Q6 [facility]; Protocol Last Admin: 08/27/18 05:16 Dose: 2 units Insulin Glargine (Lantus) 15 unit SC Q12 [facility] Last Admin: 08/23/18 10:39 Dose: Not Given Lactobacillus Acidophilus (Bacid Acidophilus) 1 cap PEG Q12 [facility] Last Admin: 08/26/18 23:48 Dose: 1 cap Methimazole (Tapazole) 20 mg PO Q8 [facility] Last Admin: 08/27/18 05:16 Dose: 20 mg Multivitamins (Hexavitamin) 1 tab PEG DAILY [facility] Last Admin: 08/26/18 12:18 Dose: 1 tab Pantoprazole Sodium (Protonix Susp) 40 mg GT Q12H [facility] Last Admin: 08/26/18 21:26 Dose: 40 mg Propranolol HCl (Propranolol Inj) 1 mg IVP Q6H [facility] - Labs Labs: 08/27/18 06:28 08/27/18 06:20 PT 16.8 SECONDS (9.7-12.2) H 08/27/18 06:28 INR 1.5 08/27/18 06:28 APTT 27 SECONDS (21-34) 08/27/18 06:28 - Additional Findings Additional findings: - Constitutional Appears: Unkempt, Cachectic, Chronically Ill - Head Exam Head Exam: NORMAL INSPECTION - Eye Exam Eye Exam: EOMI - ENT Exam ENT Exam: Mucous Membranes Dry - Respiratory Exam Respiratory Exam: Decreased Breath Sounds, Rhonchi, NORMAL BREATHING PATTERN - Cardiovascular Exam Cardiovascular Exam: REGULAR RHYTHM, +S1, +S2 - GI/Abdominal Exam GI & Abdominal Exam: Distended, Soft, Normal Bowel Sounds. absent: Tenderness, Rebound Additional comments: + peg tube, no signs of bleeding or infection - Extremities Exam Extremities Exam: absent: Pedal Edema, Tenderness Additional comments: muscle atrophy - Neurological Exam Additional comments: unable to follow commands. GCS 6 - Skin Skin Exam: Dry, Intact, Normal Color, Warm to the touch Assessment and Plan - Assessment and Plan (Free Text) Assessment: This is a 52yo F originally admitted to the ICU for Septic shock 2/2 to PNA/UTI worsened by embolic stroke, cardiac arrest, and anoxic brain injury. Pt is POD 3 for IVC filter. Plan: Septic Shock secondary to Pneumonia and Urinary Tract Infection Pt febrile (tmax 101.2) with tachycardia (130), no leukocytosis, Hypothermia blanket and ice pack to axillas Trach Aspirate: Psuedomonas Bronchoscopy by Dr. Maciel (08/23/18) culture showed Pseudomonas aerguinosa ID consulted, recs appreciated HELD Micafungin due to transaminitis Discontinue Merrem, will start cefepime 1g IVP Q12H (08/27) Chest xray from 08/22/18 noted for new right lower lobe infiltrate pneumonia. Chest xray (08/23/18): improviing bibasilar airspace disease w mild residual bilaterally F/u urine culture Blood culture (08/25) prelim shows no growth x48 hours CXR (08/27) shows Bilateral perihilar opacity. Possible pulmonary edema. Will consider giving Lasix in the future, but pt with no JVD, or extremity edema at this time. Transaminitis Possibly secondary to hypotension Downtrending Avoid hepatotoxic medications Hep panel is negative Abd US shows bilateral pleural effusions, patent portal vein, no hydronephrosis, no GB stones or cholecystitis Abd/pelv CT shows limited evlauation of possible hepatic vein thrombosis without IV contrast administration. Distended urinary bladder, 1.2 cm soft tissue nodule at the left adrenal gland GI, Dr. London, evaluated the pt and pt's transaminitis is believed to be likely due to hypotension as well Rapid decrease in LFTs is good prognosis. Anoxic Encephalopathy s/p code Blue 07/10 and 07/20 Pt is not at baseline as per Continue to monitor Neurology consulted, recs appreciated CT head: no acute intracranial pathology. Age-related changes. no significant interval change. Acute Respiratory Failure s/p tracheostomy 07/24/18 Dr. Maciel will continue to attempt to wean off of vent. Unsuccessful so far. Duonebs 3ml Inh Q6H Mucomyst for secretions CXR with pnuemonia possibly contributing to respiratory failure Ventricular Tachycardia NSTEMI Apical Thrombus LLE DVT Code Blue 07/10: SVT==>VT required amiodarone, magnesium, one shock delivered Code Blue 07/20: vtach s/p amiodarone, fluid, calcium gluconate, required compressions and shock Cardiology Dr Francisco on case help appreciated No cath needed. Medical management No chemical anticoagulation in light of bleeding episodes (patient has dysfunction uterine bleeding required blood transfusions; Ob has been consulted earlier in the hospitalization to inpatient workup)-->recommending heparin 5000 unit subq8 (DVT ppx dose) and aspirin 81mg PO daily; likely thrombus is organized a month of anticoagulation; risk is due to bleeding against stroke d/c Propranolol 5mg PO TID (hold SBP<100 and HR<60) Eliquis d/c bleeding and anemia-->dvt ppx and aspirin Echo discussed with Dr. Francisco, patient does have residual clot-->aware we cannot anticoagulate given heavy vaginal bleeding; if patient can tolerate possible aspirin Pt noted to be tachycardic at 130, likely secondary to fever. Will give Lopressor 2.5 mg IVP x1 dose. Restarted Propanolol 1 mg IVP Q6H, (hold SBP<100 and HR<60) VRE Urinary Tract Infection Zyvox 600mg PO BID for 7 days since Tuesday 08/14- per ID for VRE OFF Contact isolation Diabetes HgBA1c: 7.8 Hypoglycemic protocol Sugars have ranged from 150-200 x 24 hours Accuchecks Q4H off Crestor 5mg PO qHS secondary to LFTs Acute on Chronic Renal Failure Nephrology (Dr. Hyde) on board--> help appreciated No indication for HD at this time Continues to improve Hyperthyroidism? Low TSH, and Free T4 Thyroid Storm Note Thyroid studies taken before amiodarone was given (please advised this is not amiodarone induced her levels were abnormal prior) Patient does not have prior thyroid history Endocrinology (Dr. Gayle) on board help appreciated Thyroid U/S 07/16/18: showed heterogenous thydroid with multiple nodules bilaterally. She will need outpatient FNA Bx of the complex Left Lobe cyst (please see full report) Methimazole 20mg PO TID off Propranolol 5 mg PO TID due to hypotension Monitor LFTs Anemia Likely Secondary to Chronic Diseases Iron normal, TIBC low, Iron Saturation normal, Ferritin normal Stool occult blood negative B12 normal Folate Normal Transfused 1 unit PRBC 07/22/18, 2 unit of PRBC 08/13/18 1 unit on 08/17/18, 1 unit 08/23/18 Patient has been seen by OB Hospitalist; no contraindication to anticoagulation Case discussed with wildland firefighter recommending against eliquis in light of bleeding; recommending for DVT ppx and aspirin Vitamin D deficiency 50,000 international units once a week (3 doses given so far) Restart Vitamin D 50,000 IU once a week for 9 weeks (on 08/18/18) Hypernatremia 152 today Discontinue NS IVF LLE DVT Eliquis 5 mg PO BID d/c 08/17 s/p IVC filter (08/23/18) Deconditioning Continue PT/OT Continue to attempt to wean off of vent PPX Protonix 40mg IVP BID Lactobacillus 1 cap PO BID MVI 1x/day Vitamin C 1,000 NG 1x/day s/p Trach and Peg SCD on Right and contraindicated on Left due to DVT Peg feedings Continue Pulmocare at 40cc/hr PICC Line 07/31/18 bronchoscopy 08/23 IVC filter 08/[address] Armond Barber PGY-1 <Saira Leahy V - Last Filed: 08/27/18 17:38> Objective - Vital Signs/Intake and Output Vital Signs (last 24 hours): Temp Pulse Resp BP Pulse Ox 97.2 F L 85 16 127/77 96 08/27/18 16:00 08/27/18 16:00 08/27/18 16:00 08/27/18 16:00 08/27/18 16:00 Intake and Output: 08/27/18 08/27/18 06:59 18:59 Intake Total 2130 740 Balance 2130 740 - Medications Medications: Current Medications Albuterol/Ipratropium (Duoneb 3 Mg/0.5 Mg (3 Ml) Ud) 3 ml INH RQ6 [facility] Last Admin: 08/27/18 13:08 Dose: 3 ml Ascorbic Acid (Vitamin C 500 Mg Tab) 1,000 mg NG DAILY [facility] Last Admin: 08/27/18 09:26 Dose: 1,000 mg Bacitracin (Bacitracin) 1 ea TOP BID [facility] Last Admin: 08/27/18 09:26 Dose: 1 ea Dextrose (Dextrose 50% Inj) 0 ml IVP .STAT PRN; Protocol PRN Reason: Hypoglycemia Protocol Dextrose (Glutose 15) 0 gm PO .ONCE PRN; Protocol PRN Reason: Hypoglycemia Protocol Ergocalciferol (Drisdol 50,000 Intl Units Cap) 1 cap GT Q7D [facility] Stop: 10/06/18 19:16 Last Admin: 08/25/18 20:03 Dose: 1 cap Glucagon (Glucagen Diagnostic Kit) 0 mg IM .STAT PRN; Protocol PRN Reason: Hypoglycemia Protocol Dextrose (Dextrose 5% In Water 1000 Ml) 1,000 mls @ 0 mls/hr IV .Q0M PRN; Protocol PRN Reason: Hypoglycemia Protocol Cefepime HCl (Maxipime Iv 1 Gm Premix) 1 gm in 50 mls @ 100 mls/hr IVPB Q12H [facility]; Protocol Last Admin: 08/27/18 15:06 Dose: 100 mls/hr Insulin Aspart (Novolog) 0 unit SC Q6 [facility]; Protocol Last Admin: 08/27/18 12:22 Dose: 6 units Insulin Glargine (Lantus) 15 unit SC Q12 [facility] Last Admin: 08/23/18 10:39 Dose: Not Given Lactobacillus Acidophilus (Bacid Acidophilus) 1 cap PEG Q12 [facility] Last Admin: 08/27/18 09:26 Dose: 1 cap Methimazole (Tapazole) 20 mg PO Q8 [facility] Last Admin: 08/27/18 13:24 Dose: 20 mg Multivitamins (Hexavitamin) 1 tab PEG DAILY [facility] Last Admin: 08/27/18 09:26 Dose: 1 tab Pantoprazole Sodium (Protonix Susp) 40 mg GT Q12H [facility] Last Admin: 08/27/18 09:26 Dose: 40 mg - Labs Labs: 08/27/18 06:28 08/27/18 06:20 PT 16.8 SECONDS (9.7-12.2) H 08/27/18 06:28 INR 1.5 08/27/18 06:28 APTT 27 SECONDS (21-34) 08/27/18 06:28 Assessment and Plan (1) Septic shock Status: Acute (2) Acute respiratory failure Status: Acute (3) Urinary tract infection Status: Acute (4) Acute renal failure Status: Acute (5) Aspiration pneumonia Status: Acute (6) Diabetes mellitus Status: Chronic (7) Ventricular arrhythmia Status: Acute (8) Hyperthyroidism Status: Acute (9) Anemia Status: Acute (10) Prophylactic measure Status: Acute Attending/Attestation - Attestation I have personally seen and examined this patient.: Yes I have fully participated in the care of the patient.: Yes I have reviewed all pertinent clinical information, including history, physical exam and plan: Yes Notes (Text): Patient seen this afternoon. Case discussed with resident, patient was febrile this morning which I suspect is driving the tachycardia as patient continues to fight off pneumonia. Patient noted secretions from the trach and nose. Patient remains on PRVC at 30% FiO2. Patient is warm to touch. Patient started on cooling blanket to reduce fever which to help reduce the tachycardia. Unable to provide tylenol given LFTs. Patient given dose of Lopressor 2.5mg IVX1 this morning. I had discontinued Propranolol yesterday. Will discontinue iv fluids given this is also contributing to hypernatremia. Tmax: 101.2F Cooling blanket ordered. Patient's UA and Urine culture and Blood cultures (08/27/18) ordered given Fever. Elevated LFTS are downtrending slowly. ID has adjusted Antibiotic; d/c Meropenem to Maxipime 1gm IVPB Q12H. 1) Septic Shock secondary to Pneumonia and Urinary Tract Infection New Pneumonia-->pseudomonas Assessment/Plan * Infectious Disease (Dr. Brock) on board-->help appreciated * Meropenem d/c 08/27 * Start Maxipime 1gm [id number] (active since 08/27/18) * Trach Aspirate: Psuedomonas * s/p bronchoscopy (08/23/18) * Pseudomonas aerguinosa * dictated by dr maciel * 08/23: Bronchial Washings: pseudomonas Aeruginosa * 08/23: Fungal Culture: Prelim: negative * 08/23: Mycobacterial culture: prelim * Recent culture: * 08/25/18 Blood culture: no growth 48 hours X2 * 08/23/18 Blood culture: no growth after 4 days X2 * 08/27/18 Blood culture (given fever) * 08/27/18 UA and Urine Culture: f/u * Salmonella, shigella, or campylobacteria: not detected. * Ova and parasite: not detected * Chest xray (08/27/18): bilateral perihilar opacity with congestive change. Possible pulmonary edema * d/c iv fluids * Order for lasix 20mg IV X1 in evening * f/u chest xray in AM 2) Shock Liver; Transminitis * Hepatitis serology negative * Ammonia: normal * elevated INR--> vitamin K 08/24 * 08/24: off statin, benadryl, benzo, ambien, and micafungin (gave dose of 08/23) * Continue to monitor LFTs; suspected medication induced or related to low blood pressure * Gi (Dr. Murray) * discussed case with fellow 08/26/18 * Abd US shows bilateral pleural effusions, patent portal vein, no hydronephrosis, no GB stones or cholecystitis 2) Anoxic Encephalopathy Assessment/Plan * Code Blue 07/10 and 07/20 * Patient prior knowledge of 5 languages per but does not follow commands; I did speak with the and as for him to speak with her and does not follow with him. * CT head: no acute intracranial pathology. Age-related changes. no significant interval change. * suspect decline since second code blue 3) Acute Respiratory Failure Pulmonary Edema Pseudomona Pneumonia Assessment/Plan * Patient underwent tracheostomy 07/24/18 and s/p bronchoscopy 08/23 * Patient had tolerated trach collars last weekend thru Tuesday 08/14; however she has been on vent to trach. Patient has been unable to be weaned off vent. * Pulmonary (Dr. Maciel) on board-->assisting with weaning from trach on vent to trach collar * Duonebs 3ml Inh Q6H * F/u chest tomorrow 4) Ventricular Tachycardia NSTEMI Apical Thrombus LLE DVT Assessment/Plan * Code Blue 07/10: SVT==>VT required amiodarone, magnesium, one shock delivered * Code Blue 07/20: vtach s/p amiodarone, fluid, calcium gluconate, required compressions and shock * Cardiology Dr Francisco on case help appreciated * No cath needed. * Medical management * No chemical anticoagulation in light of bleeding episodes (patient has dysfunction uterine bleeding required blood transfusions; Ob has been consulted earlier in the hospitalization to inpatient workup)-->recommending heparin 5000 unit subq8 (DVT ppx dose) and aspirin 81mg PO daily; likely thrombus is organized a month of anticoagulation; risk is due to bleeding against stroke * d/c Propranolol 5mg PO TID (hold SBP<100 and HR<60) * Eliquis d/c bleeding and anemia-->dvt ppx and aspirin * Echo discussed with Dr. Francisco, patient does have residual clot-->aware we cannot anticoagulate given heavy vaginal bleeding; if patient can tolerate possible aspirin 4) VRE Urinary Tract Infection (resolved) Assessment/Plan * Zyvox 600mg PO BID for 7 days since Tuesday 08/14- per ID for VRE * OFF Contact isolation 5) Diabetes-->chronic Assessment/Plan * HgBA1c: 7.8 * Hypoglycemic protocol * held Lantus 15 units subcutaneous at bedtime Q12 * Hypoglycemic 08/23/18 AM * Accuchecks Q4H * off Crestor 5mg POqHS secondary to LFTs 6) Acute on Chronic Renal Failure Assessment/Plan * Nephrology (Dr. Hyde) on board--> help appreciated * Patient will likely not need dialysis * mildly improving 7) Hyperthyroidism? Low TSH, and Free T4 Thyroid Storm Assessment/Plan * Note Thyroid studies taken before amiodarone was given (please advised this is not amiodarone induced her levels were abnormal prior) * Patient does not have prior thyroid history * Endocrinology (Dr. 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 She will need outpatient FNA Bx of the complex Left Lobe cyst (please see full report) * Methimazole 20mg PO TID * off Propranolol 5 mg PO TID due to hypotension * Monitor LFTs 8) Anemia Likely Secondary to Chronic Diseases Assessment/Plan * Iron normal, TIBC low, Iron Saturation normal, Ferritin normal * Stool occult blood negative * B12 normal * Folate Normal * Transfused 1 unit PRBC 07/22/18, 2 unit of PRBC 08/13/18 1 unit on 08/17/18, 1 unit 08/23/18 * Patient has been seen by OB Hospitalist; no contraindication to anticoagul ation * Case discussed with wildland firefighter recommending against eliquis in light of bleeding; recommending for DVT ppx and aspirin 9) Vitamin D deficiency Assessment plan * 50,000 international units once a week (3 doses given so far) * Restart Vitamin D 50,000 IU once a week for 9 weeks (on 08/18/18) 10) Thrombocytopenia-->resolved Assessment plan * HIT/RUSTY were negative 11) 13 mm Left Adrenal Nodule * As seen on CT Chest 07/16/18 * Will need outpatient follow up for cross sectional imaging for better characterization 12) Hypernatremia * Start free fluid washes 250ml Q6 via tube feeds * Patient is on gentle Iv hydration since yesterday given low BP 13) LLE DVT * Eliquis 5 mg PO BID d/c 08/17 * Acute thrombosis of the left common femoral and femoral veins with severe redu ction of the venous return on 07/18/18 venous doppler * Patient had completed one month on Eliquis; however she continues to have dysfunction uterine bleeding; cardiology is recommending against eliquis for thrombus given bleeding risk * repeat doppler to see if DVT has resolved by ultrasound repeat * s/p IVC filter (08/23/18) 14) Deconditioning * Patient needs continued PT/OT * I did speak with Dr. Pham 08/18 in regards to reset patient's sleep wake cycle--> her pattern tends to be she is agitated at night when her is not present (her reliable social cue) receives benzo/haldol/seroquel and becomes very lethargic in the morning which presents rehab from working with her.Ambien currently helps her to sleep at Note Patient is connected to vent. She is unable to get off vent keeps failing trial. Patient was last on trach collar on 08/12. She is unable to get the MRI because the vent does not fit in the MRI. * Respiratory attempting to wean but remains on vent * 08/24: off ambien/benadryl secondary to elevated LFTs 15) Prophylactic measure * Protonix 40mg IVP BID * Lactobacillus 1 cap PO BID * MVI 1x/day * Vitamin C 1,000 NG 1x/day * s/p Trach and Peg * SCD on Right and contraindicated on Left due to DVT * Peg feedings * Pulmcar 40cc/hr * patient had frequent BMs on prior formula; no diarrhea; we have spoken with dietary to change it on 08/19/18 * PICC Line 07/31/18 * Note: speak to patient in alexis to assess neurologic status-->she does follow sometimes * OFF Ambien 5mg POqHS given LFTS * s/p bronchoscopy 08/23 * s/p IVC filter 08/23 * patient is FULL CODE-->discussed with on Tuesday and today Disposition: * off anticoagulation given H/H drop suspected to dysfunctional uterine bleeding; if there is a drop by 3-4-->may need hysterectomy * f/u chest xray in the AM * f/u culture (08/23; 08/25; 08/27) * Abx was changed by infectious disease; monitor for temperature * prognosis is guarded * Full code.
[2018-08-27] MEDS ORDERED: Metoprolol 1 mg/ml Inj ONE (08:30)
--- NOTE | 2018-08-27 08:32 | RAD ---
Date of service: 08/27/2018 HISTORY: follow up for infiltrate COMPARISON: 08/23/2018 FINDINGS: LUNGS: Bilateral perihilar opacity. Possible pulmonary edema. PLEURA: No significant pleural effusion identified, no pneumothorax apparent. CARDIOVASCULAR: No aortic atherosclerotic calcification present. Normal cardiac size. There is mild congestive change. A tracheostomy tube is again noted. OSSEOUS STRUCTURES: No significant abnormalities. VISUALIZED UPPER ABDOMEN: Normal. OTHER FINDINGS: None. IMPRESSION: Bilateral perihilar opacity with congestive change. Possible pulmonary edema.
[2018-08-27] MEDS: Lactobacillus Acidophilus 500 MU Cap PEG SCH ×2 (09:26→22:24)
[2018-08-27] MEDS: Pantoprazole 40 mg Susp UD GT SCH ×2 (09:26→22:24)
[2018-08-27] MEDS: Multiple Vitamins Tab PEG SCH (09:26)
[2018-08-27] MEDS: Bacitracin 500 Units/gm Oint Foilpak UD TOP SCH ×2 (09:26→18:12)
--- NOTE | 2018-08-27 11:23 | CP.PCM.PN ---
<Julian Bourgeois - Last Filed: 08/27/18 12:15> Subjective - Date & Time of Evaluation Date of Evaluation: 08/27/18 Time of Evaluation: 11:22 - Subjective Subjective: GI Fellow PGY4, progress note. Patient has been in the hospital for >50days and is known to our service. Please see previous consult note and progress note for previous GI history. Patient has been treated for multiple pneumonias and most recently found to have pseudomonas infection on bronchial culture. She has PEG and Trach. We have been consulted for a spike in liver tests. I discussed case with Dr. Leahy at length, and was told the change in enzymes came directly after an infusion of antifungal medications. There was also the possibility the blood pressure could have been critically low the night before causing an ischemic hepatitis. She does have a recent ME, low EF and large apical thrombus. Hepatitis panel completed and negative. Abdominal U/S showed normal liver with patent portal vein. Objective - Vital Signs/Intake and Output Vital Signs (last 24 hours): Temp Pulse Resp BP Pulse Ox 100.0 F H 94 H 18 107/55 L 97 08/27/18 08:55 08/27/18 08:55 08/27/18 08:55 08/27/18 08:55 08/27/18 08:55 Intake and Output: 08/27/18 08/27/18 06:59 18:59 Intake Total 2130 120 Balance 2130 120 - Medications Medications: Current Medications Albuterol/Ipratropium (Duoneb 3 Mg/0.5 Mg (3 Ml) Ud) 3 ml INH RQ6 [facility] Last Admin: 08/27/18 07:57 Dose: 3 ml Ascorbic Acid (Vitamin C 500 Mg Tab) 1,000 mg NG DAILY [facility] Last Admin: 08/27/18 09:26 Dose: 1,000 mg Bacitracin (Bacitracin) 1 ea TOP BID [facility] Last Admin: 08/27/18 09:26 Dose: 1 ea Dextrose (Dextrose 50% Inj) 0 ml IVP .STAT PRN; Protocol PRN Reason: Hypoglycemia Protocol Dextrose (Glutose 15) 0 gm PO .ONCE PRN; Protocol PRN Reason: Hypoglycemia Protocol Ergocalciferol (Drisdol 50,000 Intl Units Cap) 1 cap GT Q7D [facility] Stop: 10/06/18 19:16 Last Admin: 08/25/18 20:03 Dose: 1 cap Glucagon (Glucagen Diagnostic Kit) 0 mg IM .STAT PRN; Protocol PRN Reason: Hypoglycemia Protocol Meropenem 500 mg/ Sodium (Chloride) 100 mls @ 100 mls/hr IVPB Q8H [facility] Last Admin: 08/27/18 03:53 Dose: 100 mls/hr Dextrose (Dextrose 5% In Water 1000 Ml) 1,000 mls @ 0 mls/hr IV .Q0M PRN; Protocol PRN Reason: Hypoglycemia Protocol Insulin Aspart (Novolog) 0 unit SC Q6 [facility]; Protocol Last Admin: 08/27/18 05:16 Dose: 2 units Insulin Glargine (Lantus) 15 unit SC Q12 [facility] Last Admin: 08/23/18 10:39 Dose: Not Given Lactobacillus Acidophilus (Bacid Acidophilus) 1 cap PEG Q12 [facility] Last Admin: 08/27/18 09:26 Dose: 1 cap Methimazole (Tapazole) 20 mg PO Q8 [facility] Last Admin: 08/27/18 05:16 Dose: 20 mg Multivitamins (Hexavitamin) 1 tab PEG DAILY [facility] Last Admin: 08/27/18 09:26 Dose: 1 tab Pantoprazole Sodium (Protonix Susp) 40 mg GT Q12H [facility] Last Admin: 08/27/18 09:26 Dose: 40 mg - Labs Labs: 08/27/18 06:28 08/27/18 06:20 PT 16.8 SECONDS (9.7-12.2) H 08/27/18 06:28 INR 1.5 08/27/18 06:28 APTT 27 SECONDS (21-34) 08/27/18 06:28 - Constitutional Appears: Non-toxic, No Acute Distress, Confused, Chronically Ill - Head Exam Head Exam: ATRAUMATIC, NORMAL INSPECTION - Eye Exam Eye Exam: EOMI, Normal appearance - ENT Exam ENT Exam: Mucous Membranes Moist, Normal Exam - Respiratory Exam Respiratory Exam: NORMAL BREATHING PATTERN. absent: Respiratory Distress - GI/Abdominal Exam GI & Abdominal Exam: Soft. absent: Tenderness Additional comments: PEG tube in good position, no ulceration. Mild discharge as expected. - Neurological Exam Neurological Exam: Altered, Awake - Psychiatric Exam Psychiatric exam: Flat Affect. absent: Normal Mood - Skin Skin Exam: Dry, Normal Color Assessment and Plan - Assessment and Plan (Free Text) Assessment: Patient is a 52yo Noelle-speaking female with PMHx significant for diabetes, hyperthyroidism who presented to the ED with complaints of productive cough and generalized malaise for 2-3 weeks. Patient has since suffered cardiac arrest, anoxic brain injury and respiratory failure requiring tracheostomy #Acute Hepatitis - Likely ischemic hepatitis +/- antifungal DILI #Pseudomonas pneumonia #VTach cardiac arrest s/p resuscitation #Anoxic brain injury #Respiratory failure requiring mechanical ventilation #LV thrombus- off anticoagulation due to extensive vaginal bleeding. #Systolic CHF #Dysphagia s/p PEG 07/26/18 Plan: -The blood pressure was critically low the night before the liver tests spiked, likely causing an ischemic hepatitis. She does have a recent ME, low EF and large apical thrombus. Change in enzymes came directly after an infusion of antifungal medications, but this could be coincidental. Hepatitis panel completed and negative. Abdominal U/S showed normal liver with patent portal vein. -Continued on antibiotic coverage -Continue to hold possible hepatotoxic medications that are not necessary in the short-term. Methimazole has been known to be associated with hepatotoxicity, but unlikely the cause of this acute spike in liver enzymes. Would recommend to continue if patient is having thyroid storm. -Continue supportive care and monitoring liver tests. Rapid decline in liver tests is a good prognosis. <Alejandro London - Last Filed: 08/27/18 13:03> Objective - Vital Signs/Intake and Output Vital Signs (last 24 hours): Temp Pulse Resp BP Pulse Ox 101.2 F H 94 H 18 107/55 L 97 08/27/18 11:30 08/27/18 08:55 08/27/18 08:55 08/27/18 08:55 08/27/18 11:30 Intake and Output: 08/27/18 08/27/18 06:59 18:59 Intake Total 2130 120 Balance 2130 120 - Medications Medications: Current Medications Albuterol/Ipratropium (Duoneb 3 Mg/0.5 Mg (3 Ml) Ud) 3 ml INH RQ6 [facility] Last Admin: 08/27/18 07:57 Dose: 3 ml Ascorbic Acid (Vitamin C 500 Mg Tab) 1,000 mg NG DAILY [facility] Last Admin: 08/27/18 09:26 Dose: 1,000 mg Bacitracin (Bacitracin) 1 ea TOP BID [facility] Last Admin: 08/27/18 09:26 Dose: 1 ea Dextrose (Dextrose 50% Inj) 0 ml IVP .STAT PRN; Protocol PRN Reason: Hypoglycemia Protocol Dextrose (Glutose 15) 0 gm PO .ONCE PRN; Protocol PRN Reason: Hypoglycemia Protocol Ergocalciferol (Drisdol 50,000 Intl Units Cap) 1 cap GT Q7D [facility] Stop: 10/06/18 19:16 Last Admin: 08/25/18 20:03 Dose: 1 cap Glucagon (Glucagen Diagnostic Kit) 0 mg IM .STAT PRN; Protocol PRN Reason: Hypoglycemia Protocol Meropenem 500 mg/ Sodium (Chloride) 100 mls @ 100 mls/hr IVPB Q8H [facility] Last Admin: 08/27/18 03:53 Dose: 100 mls/hr Dextrose (Dextrose 5% In Water 1000 Ml) 1,000 mls @ 0 mls/hr IV .Q0M PRN; Protocol PRN Reason: Hypoglycemia Protocol Insulin Aspart (Novolog) 0 unit SC Q6 [facility]; Protocol Last Admin: 08/27/18 05:16 Dose: 2 units Insulin Glargine (Lantus) 15 unit SC Q12 [facility] Last Admin: 08/23/18 10:39 Dose: Not Given Lactobacillus Acidophilus (Bacid Acidophilus) 1 cap PEG Q12 [facility] Last Admin: 08/27/18 09:26 Dose: 1 cap Methimazole (Tapazole) 20 mg PO Q8 [facility] Last Admin: 08/27/18 05:16 Dose: 20 mg Multivitamins (Hexavitamin) 1 tab PEG DAILY [facility] Last Admin: 08/27/18 09:26 Dose: 1 tab Pantoprazole Sodium (Protonix Susp) 40 mg GT Q12H [facility] Last Admin: 08/27/18 09:26 Dose: 40 mg - Labs Labs: 08/27/18 06:28 08/27/18 06:20 PT 16.8 SECONDS (9.7-12.2) H 08/27/18 06:28 INR 1.5 08/27/18 06:28 APTT 27 SECONDS (21-34) 08/27/18 06:28 Attending/Attestation - Attestation I have personally seen and examined this patient.: Yes I have fully participated in the care of the patient.: Yes I have reviewed all pertinent clinical information, including history, physical exam and plan: Yes Notes (Text): 08/27/18 11:43 The pt was seen and examined. Chart reviewed. Assessment, findings and recommen dations as documented above were discussed with Dr. Bourgeois.
--- NOTE | 2018-08-27 14:30 | CP.PCM.PN ---
Subjective - Date & Time of Evaluation Date of Evaluation: 08/27/18 Time of Evaluation: 09:00 - Subjective Subjective: still with fever and secretions via trach LFT's elevated/ imaging negative will d/c Merrem add cefepime Objective - Vital Signs/Intake and Output Vital Signs (last 24 hours): Temp Pulse Resp BP Pulse Ox 100.2 F H 95 H 16 128/77 97 08/27/18 12:00 08/27/18 12:00 08/27/18 12:00 08/27/18 12:00 08/27/18 12:00 Intake and Output: 08/27/18 08/27/18 06:59 18:59 Intake Total 2130 530 Balance 2130 530 - Medications Medications: Current Medications Albuterol/Ipratropium (Duoneb 3 Mg/0.5 Mg (3 Ml) Ud) 3 ml INH RQ6 [facility] Last Admin: 08/27/18 13:08 Dose: 3 ml Ascorbic Acid (Vitamin C 500 Mg Tab) 1,000 mg NG DAILY [facility] Last Admin: 08/27/18 09:26 Dose: 1,000 mg Bacitracin (Bacitracin) 1 ea TOP BID [facility] Last Admin: 08/27/18 09:26 Dose: 1 ea Dextrose (Dextrose 50% Inj) 0 ml IVP .STAT PRN; Protocol PRN Reason: Hypoglycemia Protocol Dextrose (Glutose 15) 0 gm PO .ONCE PRN; Protocol PRN Reason: Hypoglycemia Protocol Ergocalciferol (Drisdol 50,000 Intl Units Cap) 1 cap GT Q7D [facility] Stop: 10/06/18 19:16 Last Admin: 08/25/18 20:03 Dose: 1 cap Glucagon (Glucagen Diagnostic Kit) 0 mg IM .STAT PRN; Protocol PRN Reason: Hypoglycemia Protocol Dextrose (Dextrose 5% In Water 1000 Ml) 1,000 mls @ 0 mls/hr IV .Q0M PRN; Protocol PRN Reason: Hypoglycemia Protocol Cefepime HCl (Maxipime Iv 1 Gm Premix) 1 gm in 50 mls @ 100 mls/hr IVPB Q12H [facility]; Protocol Insulin Aspart (Novolog) 0 unit SC Q6 [facility]; Protocol Last Admin: 08/27/18 12:22 Dose: 6 units Insulin Glargine (Lantus) 15 unit SC Q12 [facility] Last Admin: 08/23/18 10:39 Dose: Not Given Lactobacillus Acidophilus (Bacid Acidophilus) 1 cap PEG Q12 [facility] Last Admin: 08/27/18 09:26 Dose: 1 cap Methimazole (Tapazole) 20 mg PO Q8 [facility] Last Admin: 08/27/18 13:24 Dose: 20 mg Multivitamins (Hexavitamin) 1 tab PEG DAILY [facility] Last Admin: 08/27/18 09:26 Dose: 1 tab Pantoprazole Sodium (Protonix Susp) 40 mg GT Q12H [facility] Last Admin: 08/27/18 09:26 Dose: 40 mg - Labs Labs: 08/27/18 06:28 08/27/18 06:20 PT 16.8 SECONDS (9.7-12.2) H 08/27/18 06:28 INR 1.5 08/27/18 06:28 APTT 27 SECONDS (21-34) 08/27/18 06:28 Assessment and Plan (1) NEHA (acute kidney injury) Status: Acute (2) Acute renal failure Status: Acute (3) Acute respiratory failure Status: Acute (4) Aspiration pneumonia Status: Acute (5) Septic shock Status: Acute (6) Urinary tract infection Status: Acute (7) Diabetes mellitus Status: Chronic
[2018-08-27] MEDS: Cefepime IV 1 gm in Dextrose 1 GM/50 ML BAG IVPB SCH (15:06)
[2018-08-27 17:02] LABS: SQUAMOUS EPITHIAL 1 /hpf (0-5); URINE BACTERIA FEW (<OCC); URINE BILIRUBIN NEGATIVE (NEGATIVE); URINE BLOOD NEGATIVE (NEGATIVE); URINE CLARITY Hazy (Clear); URINE COLOR Amber (YELLOW); URINE GLUCOSE (UA) 1+ mg/dL (Normal); URINE LEUKOCYTE ESTERASE NEG Leu/uL (Negative); URINE PROTEIN 1+ mg/dL (NEGATIVE); URINE UROBILINOGEN NORMAL mg/dL (0.2-1.0)
[2018-08-28] MEDS: Cefepime IV 1 gm in Dextrose 1 GM/50 ML BAG IVPB SCH ×2 (02:11→14:08)
[2018-08-28] MEDS: Albuterol-Ipratrop 3 mg / 0.5 (3 ml) UD INH SCH ×3 (02:21→19:40)
[2018-08-28] MEDS: (Novolog) Insulin Aspart, Recombinant 100 u/ml 10 ml vial SC SCH ×3 (06:14→12:41)
[2018-08-28 06:59] LABS: BASO # 0.1 K/uL (0.0-0.2); EOS # 0.2 K/uL (0.0-0.7); EOS % 3.2 % (0.0-4.0); HEMOGLOBIN 9.1 g/dL (11.0-16.0); LYMPH # 1.5 K/uL (1.0-4.3); LYMPH % 19.9 % (20.0-40.0); MEAN CELL VOLUME 88.1 fL (81.0-99.0); MEAN CORPUSCULAR HEMOGLOBIN 29.5 pg (27.0-31.0); MEAN CORPUSCULAR HGB CONC 33.5 g/dL (33.0-37.0); MEAN PLATELET VOLUME 8.4 fL (7.2-11.7); MONO # 0.5 K/uL (0.0-0.8); MONO % 7.1 % (0.0-10.0); NEUT # 5.2 K/uL (1.8-7.0); NEUT % 68.8 % (50.0-75.0); NRBC % 0.3 % (0.0-2.0); RBC 3.08 Mil/uL (3.80-5.20); WHITE BLOOD COUNT 7.5 K/uL (4.8-10.8)
[2018-08-28 07:07] LABS: INR 1.5; PROTHROMBIN TIME 16.3 SECONDS (9.7-12.2)
[2018-08-28 07:49] LABS: ALB/GLOB RATIO 0.7 (1.0-2.1); ALBUMIN 2.2 g/dL (3.5-5.0); AST/SGOT 503 U/L (14-36); BLOOD UREA NITROGEN 40 mg/dL (7-17); CALCIUM 7.7 mg/dl (8.6-10.4); GFR NON-AFRICAN AMERICAN 58
--- NOTE | 2018-08-28 08:00 | CP.PCM.PN ---
<Julian Bourgeois - Last Filed: 08/28/18 09:13> Subjective - Date & Time of Evaluation Date of Evaluation: 08/28/18 Time of Evaluation: 07:58 - Subjective Subjective: Patient has been having fevers and secretions so abx changed from merrem to cefepime. Discussed with nurses, and no major diarrhea, vomiting. She is tolerating tube feeds. Objective - Vital Signs/Intake and Output Vital Signs (last 24 hours): Temp Pulse Resp BP Pulse Ox 98.9 F 90 19 132/63 100 08/28/18 04:00 08/28/18 04:00 08/28/18 04:00 08/28/18 04:00 08/28/18 04:00 Intake and Output: 08/28/18 08/28/18 06:59 18:59 Intake Total 760 Balance 760 - Medications Medications: Current Medications Albuterol/Ipratropium (Duoneb 3 Mg/0.5 Mg (3 Ml) Ud) 3 ml INH RQ6 [facility] Last Admin: 08/28/18 02:21 Dose: 3 ml Ascorbic Acid (Vitamin C 500 Mg Tab) 1,000 mg NG DAILY [facility] Last Admin: 08/27/18 09:26 Dose: 1,000 mg Bacitracin (Bacitracin) 1 ea TOP BID [facility] Last Admin: 08/27/18 18:12 Dose: 1 ea Dextrose (Dextrose 50% Inj) 0 ml IVP .STAT PRN; Protocol PRN Reason: Hypoglycemia Protocol Dextrose (Glutose 15) 0 gm PO .ONCE PRN; Protocol PRN Reason: Hypoglycemia Protocol Ergocalciferol (Drisdol 50,000 Intl Units Cap) 1 cap GT Q7D [facility] Stop: 10/06/18 19:16 Last Admin: 08/25/18 20:03 Dose: 1 cap Glucagon (Glucagen Diagnostic Kit) 0 mg IM .STAT PRN; Protocol PRN Reason: Hypoglycemia Protocol Dextrose (Dextrose 5% In Water 1000 Ml) 1,000 mls @ 0 mls/hr IV .Q0M PRN; Prot ocol PRN Reason: Hypoglycemia Protocol Cefepime HCl (Maxipime Iv 1 Gm Premix) 1 gm in 50 mls @ 100 mls/hr IVPB Q12H [facility]; Protocol Last Admin: 08/28/18 02:11 Dose: 100 mls/hr Insulin Aspart (Novolog) 0 unit SC Q6 [facility]; Protocol Last Admin: 08/28/18 06:14 Dose: Not Given Insulin Glargine (Lantus) 15 unit SC Q12 [facility] Last Admin: 08/23/18 10:39 Dose: Not Given Lactobacillus Acidophilus (Bacid Acidophilus) 1 cap PEG Q12 [facility] Last Admin: 08/27/18 22:24 Dose: 1 cap Methimazole (Tapazole) 20 mg PO Q8 [facility] Last Admin: 08/28/18 06:10 Dose: 20 mg Multivitamins (Hexavitamin) 1 tab PEG DAILY [facility] Last Admin: 08/27/18 09:26 Dose: 1 tab Pantoprazole Sodium (Protonix Susp) 40 mg GT Q12H [facility] Last Admin: 08/27/18 22:24 Dose: 40 mg - Labs Labs: 08/28/18 06:57 08/28/18 06:57 PT 16.3 SECONDS (9.7-12.2) H 08/28/18 06:57 INR 1.5 08/28/18 06:57 APTT 28 SECONDS (21-34) 08/28/18 06:57 - Constitutional Appears: Agitated, Confused, Chronically Ill - Head Exam Head Exam: ATRAUMATIC, NORMOCEPHALIC - Eye Exam Eye Exam: Normal appearance - ENT Exam Additional comments: Trach present - Respiratory Exam Respiratory Exam: Clear to Ausculation Bilateral, NORMAL BREATHING PATTERN - Cardiovascular Exam Cardiovascular Exam: REGULAR RHYTHM, +S1, +S2 - GI/Abdominal Exam GI & Abdominal Exam: Soft, Normal Bowel Sounds. absent: Tenderness Additional comments: PEG present - Extremities Exam Extremities Exam: Full ROM, Normal Inspection - Neurological Exam Neurological Exam: Altered, Awake. absent: Oriented x3 - Psychiatric Exam Psychiatric exam: absent: Normal Affect, Normal Mood - Skin Skin Exam: Dry, Normal Color Assessment and Plan - Assessment and Plan (Free Text) Assessment: Patient is a 52yo Noelle-speaking female with PMHx significant for diabetes, hyperthyroidism who presented to the ED with complaints of productive cough and generalized malaise for 2-3 weeks. Patient has since suffered cardiac arrest, anoxic brain injury and respiratory failure requiring tracheostomy #Acute Hepatitis - Likely ischemic hepatitis +/- antifungal DILI #Pseudomonas pneumonia #VTach cardiac arrest s/p resuscitation #Anoxic brain injury #Respiratory failure requiring mechanical ventilation #LV thrombus- off anticoagulation due to extensive vaginal bleeding. #Systolic CHF #Dysphagia s/p PEG 07/26/18 Plan: -The blood pressure was critically low the night before the liver tests spiked, likely causing an ischemic hepatitis. She does have a recent NC, low EF and large apical thrombus. Change in enzymes came directly after an infusion of antifungal medications, but this could be coincidental. Hepatitis panel completed and negative. Abdominal U/S showed normal liver with patent portal vein. -Continued on antibiotic coverage -Continue to hold possible hepatotoxic medications that are not necessary in the short-term. Methimazole has been known to be associated with hepatotoxicity, but unlikely the cause of this acute spike in liver enzymes. Would recommend to continue if patient is having thyroid storm. -Continue supportive care and monitoring liver tests. Rapid decline in liver tests is a good prognosis. -Liver tests continue to improve quickly. -Signing-off, please reconsult as needed. <Hai Murray - Last Filed: 08/28/18 09:35> Objective - Vital Signs/Intake and Output Vital Signs (last 24 hours): Temp Pulse Resp BP Pulse Ox 99.5 F 96 H 22 122/63 100 08/28/18 08:00 08/28/18 09:00 08/28/18 08:00 08/28/18 08:00 08/28/18 08:00 Intake and Output: 08/28/18 08/28/18 06:59 18:59 Intake Total 760 370 Balance 760 370 - Medications Medications: Current Medications Albuterol/Ipratropium (Duoneb 3 Mg/0.5 Mg (3 Ml) Ud) 3 ml INH RQ6 [facility] Last Admin: 08/28/18 02:21 Dose: 3 ml Ascorbic Acid (Vitamin C 500 Mg Tab) 1,000 mg NG DAILY [facility] Last Admin: 08/27/18 09:26 Dose: 1,000 mg Bacitracin (Bacitracin) 1 ea TOP BID [facility] Last Admin: 08/27/18 18:12 Dose: 1 ea Dextrose (Dextrose 50% Inj) 0 ml IVP .STAT PRN; Protocol PRN Reason: Hypoglycemia Protocol Dextrose (Glutose 15) 0 gm PO .ONCE PRN; Protocol PRN Reason: Hypoglycemia Protocol Ergocalciferol (Drisdol 50,000 Intl Units Cap) 1 cap GT Q7D [facility] Stop: 10/06/18 19:16 Last Admin: 08/25/18 20:03 Dose: 1 cap Glucagon (Glucagen Diagnostic Kit) 0 mg IM .STAT PRN; Protocol PRN Reason: Hypoglycemia Protocol Dextrose (Dextrose 5% In Water 1000 Ml) 1,000 mls @ 0 mls/hr IV .Q0M PRN; Protocol PRN Reason: Hypoglycemia Protocol Cefepime HCl (Maxipime Iv 1 Gm Premix) 1 gm in 50 mls @ 100 mls/hr IVPB Q12H [facility]; Protocol Last Admin: 08/28/18 02:11 Dose: 100 mls/hr Insulin Aspart (Novolog) 0 unit SC Q6 [facility]; Protocol Last Admin: 08/28/18 06:14 Dose: Not Given Insulin Glargine (Lantus) 15 unit SC Q12 [facility] Last Admin: 08/23/18 10:39 Dose: Not Given Lactobacillus Acidophilus (Bacid Acidophilus) 1 cap PEG Q12 [facility] Last Admin: 08/27/18 22:24 Dose: 1 cap Methimazole (Tapazole) 20 mg PO Q8 [facility] Last Admin: 08/28/18 06:10 Dose: 20 mg Multivitamins (Hexavitamin) 1 tab PEG DAILY [facility] Last Admin: 08/27/18 09:26 Dose: 1 tab Pantoprazole Sodium (Protonix Susp) 40 mg GT Q12H [facility] Last Admin: 08/27/18 22:24 Dose: 40 mg - Labs Labs: 08/28/18 06:57 08/28/18 06:57 PT 16.3 SECONDS (9.7-12.2) H 08/28/18 06:57 INR 1.5 08/28/18 06:57 APTT 28 SECONDS (21-34) 08/28/18 06:57 Attending/Attestation - Attestation I have personally seen and examined this patient.: Yes I have fully participated in the care of the patient.: Yes I have reviewed all pertinent clinical information, including history, physical exam and plan: Yes Notes (Text): 08/28/18 09:32 Patient seen and examined with GI fellow. She remains in intensive care unit, no acute events overnight. Tolerating tube feeding without difficulty. Review of vitals from today are normal. Pneumonia Cardiac arrest with anoxic brain injury s/p tracheostomy and PEG CHF with LV thrombus Transaminitis - likely secondary to ischemia given clinical scenario - Tube feeding as tolerated - LFTs continue to trend down, monitor and avoid hepatotoxic therapies - Viral hepatitis panel negative - No further planned GI intervention, will sign off case. Please reconsult as necessary, thank you.
[2018-08-28 08:29] LABS: ALT/SGPT 1751 U/L (9-52)
--- NOTE | 2018-08-28 09:09 | RAD ---
Date of service: 08/28/2018 HISTORY: pneumonia. pulmonary edema COMPARISON: 08/27/2020 FINDINGS: LUNGS: Ill-defined bibasilar opacity suspicious for pulmonary edema versus bilateral pneumonia. This has progressed compared to the prior chest radiograph. Examination limited due to poor inspiratory effort. PLEURA: No significant pleural effusion identified, no pneumothorax apparent. CARDIOVASCULAR: No aortic atherosclerotic calcification present. Normal cardiac size. No congestive change. Tracheostomy tube. Left PICC catheter. OSSEOUS STRUCTURES: No significant abnormalities. VISUALIZED UPPER ABDOMEN: Normal. OTHER FINDINGS: None. IMPRESSION: Increasing bibasilar ill-defined opacity. Pulmonary edema versus bilateral pneumonia.
[2018-08-28] MEDS: Multiple Vitamins Tab PEG SCH (09:50)
[2018-08-28] MEDS: Pantoprazole 40 mg Susp UD GT SCH ×2 (09:50→21:43)
[2018-08-28] MEDS: Bacitracin 500 Units/gm Oint Foilpak UD TOP SCH ×2 (09:50→18:19)
[2018-08-28] MEDS: Lactobacillus Acidophilus 500 MU Cap PEG SCH ×2 (09:50→21:43)
--- NOTE | 2018-08-28 10:48 | CP.PCM.PN ---
<Bhanu Villegas - Last Filed: 08/28/18 15:54> Subjective - Date & Time of Evaluation Date of Evaluation: 08/28/18 Time of Evaluation: 10:35 - Subjective Subjective: Hospitalist Note Pt seen and examined at bedside. Pt unable to provide a complete ROS, trach and PEG in, no surrounding erythema. One hyperthermic event overnight as per nursing, given ice packs for cooling. Objective - Vital Signs/Intake and Output Vital Signs (last 24 hours): Temp Pulse Resp BP Pulse Ox 99.5 F 96 H 22 122/63 100 08/28/18 08:00 08/28/18 09:00 08/28/18 08:00 08/28/18 08:00 08/28/18 08:00 Intake and Output: 08/28/18 08/28/18 06:59 18:59 Intake Total 760 370 Balance 760 370 - Medications Medications: Current Medications Ascorbic Acid (Vitamin C 500 Mg Tab) 1,000 mg NG DAILY [facility] Last Admin: 08/28/18 09:50 Dose: 1,000 mg Bacitracin (Bacitracin) 1 ea TOP BID [facility] Last Admin: 08/28/18 09:50 Dose: 1 ea Dextrose (Dextrose 50% Inj) 0 ml IVP .STAT PRN; Protocol PRN Reason: Hypoglycemia Protocol Dextrose (Glutose 15) 0 gm PO .ONCE PRN; Protocol PRN Reason: Hypoglycemia Protocol Ergocalciferol (Drisdol 50,000 Intl Units Cap) 1 cap GT Q7D [facility] Stop: 10/06/18 19:16 Last Admin: 08/25/18 20:03 Dose: 1 cap Glucagon (Glucagen Diagnostic Kit) 0 mg IM .STAT PRN; Protocol PRN Reason: Hypoglycemia Protocol Dextrose (Dextrose 5% In Water 1000 Ml) 1,000 mls @ 0 mls/hr IV .Q0M PRN; Protocol PRN Reason: Hypoglycemia Protocol Cefepime HCl (Maxipime Iv 1 Gm Premix) 1 gm in 50 mls @ 100 mls/hr IVPB Q12H [facility]; Protocol Last Admin: 08/28/18 02:11 Dose: 100 mls/hr Insulin Aspart (Novolog) 0 unit SC Q6 [facility]; Protocol Last Admin: 08/28/18 06:14 Dose: Not Given Insulin Glargine (Lantus) 15 unit SC Q12 [facility] Last Admin: 08/23/18 10:39 Dose: Not Given Lactobacillus Acidophilus (Bacid Acidophilus) 1 cap PEG Q12 [facility] Last Admin: 08/28/18 09:50 Dose: 1 cap Methimazole (Tapazole) 20 mg PO Q8 [facility] Last Admin: 08/28/18 06:10 Dose: 20 mg Multivitamins (Hexavitamin) 1 tab PEG DAILY [facility] Last Admin: 08/28/18 09:50 Dose: 1 tab Pantoprazole Sodium (Protonix Susp) 40 mg GT Q12H [facility] Last Admin: 08/28/18 09:50 Dose: 40 mg - Labs Labs: 08/28/18 06:57 08/28/18 06:57 PT 16.3 SECONDS (9.7-12.2) H 08/28/18 06:57 INR 1.5 08/28/18 06:57 APTT 28 SECONDS (21-34) 08/28/18 06:57 - Additional Findings Additional findings: - Constitutional Appears: Agitated, Confused, Chronically Ill - Head Exam Head Exam: ATRAUMATIC, NORMOCEPHALIC - Eye Exam Eye Exam: R pupil sluggish reaction to light slightly smaller than L pupil, - ENT Exam Additional comments: Trach present - Respiratory Exam Respiratory Exam: Clear to Ausculation Bilateral, NORMAL BREATHING PATTERN - Cardiovascular Exam Cardiovascular Exam: REGULAR RHYTHM, +S1, +S2 - GI/Abdominal Exam GI & Abdominal Exam: Soft, Normal Bowel Sounds. absent: Tenderness Additional comments: PEG present - Extremities Exam Extremities Exam: Full ROM, Normal Inspection - Neurological Exam Neurological Exam: Altered, Awake. absent: Oriented x3 - Psychiatric Exam Psychiatric exam: absent: Normal Affect, Normal Mood - Skin Skin Exam: Dry, Normal Color Assessment and Plan - Assessment and Plan (Free Text) Assessment: This is a 52yo F originally admitted to the ICU for Septic shock 2/2 to PNA/UTI worsened by embolic stroke, cardiac arrest, and anoxic brain injury. Pt is POD 4 for IVC filter. Plan: Septic Shock secondary to Pneumonia and Urinary Tract Infection Pt febrile (tmax 101.5), no leukocytosis, Hypothermia blanket and ice pack to axillas Trach Aspirate: Psuedomonas Bronchoscopy by Dr. Lozaad (08/23/18) culture showed Pseudomonas aerguinosa ID consulted, recs appreciated HELD Micafungin due to transaminitis Cefepime 1g q12 IVPB F/u urine culture Blood culture (08/25) prelim shows no growth x72 hours CXR (08/28) Possible pulmonary edema vs bibasilar pna Acute Ischemic Hepatitis Possibly secondary to hypotension Downtrending Avoid hepatotoxic medications Hep panel is negative Abd US shows bilateral pleural effusions, patent portal vein, no hydronephrosis, no GB stones or cholecystitis Abd/pelv CT shows limited evlauation of possible hepatic vein thrombosis without IV contrast administration. Distended urinary bladder, 1.2 cm soft tissue nodule at the left adrenal gland GI, Dr. London, evaluated the pt and pt's transaminitis is believed to be likely due to hypotension as well Rapid decrease in LFTs is good prognosis. Anoxic Encephalopathy s/p code Blue 07/10 and 07/20 Pt is not at baseline as per Continue to monitor Neurology consulted, recs appreciated f/u CT head w/o contrast Acute Respiratory Failure s/p tracheostomy 07/24/18 Dr. Lozada will continue to attempt to wean off of vent. Unsuccessful so far. Duonebs 3ml Inh Q6H Mucomyst for secretions CXR with pnuemonia possibly contributing to respiratory failure Ventricular Tachycardia NSTEMI Apical Thrombus LLE DVT Code Blue 07/10: SVT==>VT required amiodarone, magnesium, one shock delivered Code Blue 07/20: vtach s/p amiodarone, fluid, calcium gluconate, required compressions and shock Cardiology Dr Francisco on case help appreciated No cath needed. Medical management No chemical anticoagulation in light of bleeding episodes (patient has dysfunction uterine bleeding required blood transfusions; Ob has been consulted earlier in the hospitalization to inpatient workup)-->recommending heparin 5000 unit subq8 (DVT ppx dose) and aspirin 81mg PO daily; likely thrombus is organized a month of anticoagulation; risk is due to bleeding against stroke d/c Propranolol 5mg PO TID (hold SBP<100 and HR<60) Eliquis d/c bleeding and anemia-->dvt ppx and aspirin Echo discussed with Dr. Francisco, patient does have residual clot-->aware we cannot anticoagulate given heavy vaginal bleeding; if patient can tolerate possible aspirin Pt noted to be tachycardic at 130, likely secondary to fever. Will give Lopressor 2.5 mg IVP x1 dose. Restarted Propanolol 1 mg IVP Q6H, (hold SBP<100 and HR<60) Diabetes HgBA1c: 7.8 Hypoglycemic protocol Sugars have ranged from 150-200 x 24 hours Accuchecks Q4H off Crestor 5mg PO qHS secondary to LFTs Acute on Chronic Renal Failure Nephrology (Dr. Hyde) on board--> help appreciated No indication for HD at this time Continues to improve Hyperthyroidism? Low TSH, and Free T4 Thyroid Storm Note Thyroid studies taken before amiodarone was given (please advised this is not amiodarone induced her levels were abnormal prior) Patient does not have prior thyroid history Endocrinology (Dr. Gayle) on board help appreciated Thyroid U/S 07/16/18: showed heterogenous thydroid with multiple nodules bilaterally. She will need outpatient FNA Bx of the complex Left Lobe cyst (please see full report) Methimazole 20mg PO TID off Propranolol 5 mg PO TID due to hypotension Monitor LFTs Anemia Likely Secondary to Chronic Diseases Iron normal, TIBC low, Iron Saturation normal, Ferritin normal Stool occult blood negative B12 normal Folate Normal Transfused 1 unit PRBC 07/22/18, 2 unit of PRBC 08/13/18 1 unit on 08/17/18, 1 unit 08/23/18 Patient has been seen by OB Hospitalist; no contraindication to anticoagulation Case discussed with coping machine assembler recommending against eliquis in light of bleeding; recommending for DVT ppx and aspirin Vitamin D deficiency 50,000 international units once a week (3 doses given so far) Restart Vitamin D 50,000 IU once a week for 9 weeks (on 08/18/18) Hypernatremia 152 today Discontinue NS IVF LLE DVT Eliquis 5 mg PO BID d/c 08/17 s/p IVC filter (08/23/18) Deconditioning Continue PT/OT Continue to attempt to wean off of vent PPX Protonix 40mg IVP BID Lactobacillus 1 cap PO BID MVI 1x/day Vitamin C 1,000 NG 1x/day s/p Trach and Peg SCD on Right and contraindicated on Left due to DVT Peg feedings Continue Pulmocare at 40cc/hr PICC Line 07/31/18 bronchoscopy 08/23 IVC filter 08/23 case d/w Dr Laz Villegas PGY1 <[place] - Last Filed: 09/01/18 22:46> Objective - Vital Signs/Intake and Output Vital Signs (last 24 hours): Temp Pulse Resp BP Pulse Ox 98 F 86 21 108/53 L 100 09/01/18 20:00 09/01/18 20:00 09/01/18 20:00 09/01/18 20:00 09/01/18 20:00 Intake and Output: 09/01/18 09/02/18 18:59 06:59 Intake Total 580 180 Balance 580 180 - Medications Medications: Current Medications Albuterol/Ipratropium (Duoneb 3 Mg/0.5 Mg (3 Ml) Ud) 3 ml INH RQ6 [facility] Last Admin: 09/01/18 20:12 Dose: 3 ml Ascorbic Acid (Vitamin C 500 Mg Tab) 1,000 mg NG DAILY [facility] Last Admin: 09/01/18 09:39 Dose: 1,000 mg Bacitracin (Bacitracin) 1 ea TOP BID [facility] Last Admin: 09/01/18 17:47 Dose: 1 ea Clonazepam (Klonopin) 0.5 mg GT DAILY [facility] Dextrose (Dextrose 50% Inj) 0 ml IVP .STAT PRN; Protocol PRN Reason: Hypoglycemia Protocol Dextrose (Glutose 15) 0 gm PO .ONCE PRN; Protocol PRN Reason: Hypoglycemia Protocol Ergocalciferol (Drisdol 50,000 Intl Units Cap) 1 cap GT Q7D [facility] Stop: 10/06/18 19:16 Last Admin: 09/01/18 18:57 Dose: 1 cap Glucagon (Glucagen Diagnostic Kit) 0 mg IM .STAT PRN; Protocol PRN Reason: Hypoglycemia Protocol Cefepime HCl (Maxipime Iv 1 Gm Premix) 1 gm in 50 mls @ 100 mls/hr IVPB Q12H [facility]; Protocol Last Admin: 09/01/18 14:45 Dose: 100 mls/hr Insulin Aspart (Novolog) 0 unit SC Q6 [facility]; Protocol Last Admin: 09/01/18 17:41 Dose: Not Given Insulin Glargine (Lantus) 15 unit SC Q12 [facility] Last Admin: 08/23/18 10:39 Dose: Not Given Lactobacillus Acidophilus (Bacid Acidophilus) 1 cap PEG Q12 [facility] Last Admin: 09/01/18 09:40 Dose: 1 cap Methimazole (Tapazole) 20 mg PO Q8 [facility] Last Admin: 09/01/18 14:46 Dose: 20 mg Multivitamins (Hexavitamin) 1 tab PEG DAILY [facility] Last Admin: 09/01/18 09:39 Dose: 1 tab Pantoprazole Sodium (Protonix Susp) 40 mg GT Q12H [facility] Last Admin: 09/01/18 09:40 Dose: 40 mg Tobramycin Sulfate (Tobrex 0.3% Ophth Soln) 2 drop OD Q6H [facility] Last Admin: 09/01/18 17:47 Dose: 2 drop Trazodone HCl (Desyrel) 25 mg GT HS [facility] - Labs Labs: 09/01/18 05:31 09/01/18 05:31 PT 13.1 SECONDS (9.7-12.2) H 09/01/18 05:31 INR 1.2 09/01/18 05:31 APTT 30 SECONDS (21-34) 09/01/18 05:31 Attending/Attestation - Attestation I have personally seen and examined this patient.: Yes I have fully participated in the care of the patient.: Yes I have reviewed all pertinent clinical information, including history, physical exam and plan: Yes Notes (Text): 09/01/18 22:46 This is a late entry. Care of this patient was gone over in detail with resident Dr. Villegas. [place] D.O.
--- NOTE | 2018-08-28 17:21 | CT ---
Date of service: 08/28/2018 PROCEDURE: CT HEAD WITHOUT CONTRAST. HISTORY: r pupil<L puil, sluggish rxn to light COMPARISON: Comparison is made with 08/01/2018 TECHNIQUE: Axial computed tomography images were obtained through the head/brain without intravenous contrast. Radiation dose: Total exam DLP = 1348.18 mGy-cm. This CT exam was performed using one or more of the following dose reduction techniques: Automated exposure control, adjustment of the mA and/or kV according to patient size, and/or use of iterative reconstruction technique. FINDINGS: HEMORRHAGE: Suboptimal study due to patient's motion. No evidence of acute intracranial hemorrhage BRAIN: No mass effect or edema. Volume loss and chronic microvascular white matter ischemic changes are again noted. VENTRICLES: Unremarkable. No hydrocephalus. CALVARIUM: Unremarkable. PARANASAL SINUSES: Small air-fluid levels noted in the maxillary sinuses. MASTOID AIR CELLS: Complete opacification in both mastoid air cells noted suspicious for mastoiditis. OTHER FINDINGS: None. IMPRESSION: Suboptimal study due to patient's motion. No evidence of acute intracranial hemorrhage mass effect or midline shift. Small air-fluid level in the maxillary sinuses. Opacification of the mastoids suggestive of mastoiditis.
[2018-08-29] MEDS: (Novolog) Insulin Aspart, Recombinant 100 u/ml 10 ml vial SC SCH ×5 (00:21→18:05)
[2018-08-29] MEDS: Cefepime IV 1 gm in Dextrose 1 GM/50 ML BAG IVPB SCH ×2 (02:49→14:45)
[2018-08-29 06:09] LABS: BASO # 0.1 K/uL (0.0-0.2); BASO % 0.9 % (0.0-2.0); EOS # 0.4 K/uL (0.0-0.7); EOS % 4.1 % (0.0-4.0); HEMOGLOBIN 9.7 g/dL (11.0-16.0); LYMPH # 1.8 K/uL (1.0-4.3); LYMPH % 19.6 % (20.0-40.0); MEAN CELL VOLUME 88.7 fL (81.0-99.0); MEAN CORPUSCULAR HEMOGLOBIN 29.3 pg (27.0-31.0); MEAN PLATELET VOLUME 8.2 fL (7.2-11.7); MONO # 0.7 K/uL (0.0-0.8); MONO % 7.3 % (0.0-10.0); NEUT # 6.3 K/uL (1.8-7.0); NEUT % 68.1 % (50.0-75.0); NRBC % 0.2 % (0.0-2.0); RBC 3.33 Mil/uL (3.80-5.20); RED CELL DISTRIBUTION WIDTH 18.3 % (11.5-14.5); WHITE BLOOD COUNT 9.3 K/uL (4.8-10.8)
[2018-08-29 06:25] LABS: INR 1.3; PROTHROMBIN TIME 13.9 SECONDS (9.7-12.2)
[2018-08-29 07:02] LABS: ALB/GLOB RATIO 0.7 (1.0-2.1); ALBUMIN 2.2 g/dL (3.5-5.0); ALT/SGPT 1198 U/L (9-52); AST/SGOT 184 U/L (14-36); BLOOD UREA NITROGEN 39 mg/dL (7-17); CALCIUM 7.7 mg/dl (8.6-10.4); GFR NON-AFRICAN AMERICAN > 60
[2018-08-29] MEDS: Albuterol-Ipratrop 3 mg / 0.5 (3 ml) UD INH SCH ×3 (08:10→19:59)
[2018-08-29] MEDS: Bacitracin 500 Units/gm Oint Foilpak UD TOP SCH ×2 (09:48→18:06)
[2018-08-29] MEDS: Pantoprazole 40 mg Susp UD GT SCH ×2 (09:49→22:12)
[2018-08-29] MEDS: Lactobacillus Acidophilus 500 MU Cap PEG SCH ×2 (09:49→22:12)
[2018-08-29] MEDS: Multiple Vitamins Tab PEG SCH (09:49)
--- NOTE | 2018-08-29 13:46 | CP.PCM.PN ---
<Bhanu Villegas - Last Filed: 08/29/18 13:42> Subjective - Date & Time of Evaluation Date of Evaluation: 08/29/18 Time of Evaluation: 13:42 - Subjective Subjective: Hospitalist Service Pt seen and examined at bedside. Pt unable to provide ROS. Trach'd PEG'd, Responds to stimuli. No acute events overnight as per nursing. Vitals stable Objective - Vital Signs/Intake and Output Vital Signs (last 24 hours): Temp Pulse Resp BP Pulse Ox 99 F 90 18 128/68 96 08/29/18 04:00 08/29/18 04:00 08/29/18 04:00 08/29/18 04:00 08/29/18 04:00 Intake and Output: 08/29/18 08/29/18 06:59 18:59 Intake Total 410 1030 Balance 410 1030 - Medications Medications: Current Medications Albuterol/Ipratropium (Duoneb 3 Mg/0.5 Mg (3 Ml) Ud) 3 ml INH RQ6 [facility] Last Admin: 08/28/18 19:40 Dose: 3 ml Ascorbic Acid (Vitamin C 500 Mg Tab) 1,000 mg NG DAILY [facility] Last Admin: 08/29/18 09:49 Dose: 1,000 mg Bacitracin (Bacitracin) 1 ea TOP BID [facility] Last Admin: 08/29/18 09:48 Dose: 1 ea Dextrose (Dextrose 50% Inj) 0 ml IVP .STAT PRN; Protocol PRN Reason: Hypoglycemia Protocol Dextrose (Glutose 15) 0 gm PO .ONCE PRN; Protocol PRN Reason: Hypoglycemia Protocol Ergocalciferol (Drisdol 50,000 Intl Units Cap) 1 cap GT Q7D [facility] Stop: 10/06/18 19:16 Last Admin: 08/25/18 20:03 Dose: 1 cap Glucagon (Glucagen Diagnostic Kit) 0 mg IM .STAT PRN; Protocol PRN Reason: Hypoglycemia Protocol Dextrose (Dextrose 5% In Water 1000 Ml) 1,000 mls @ 0 mls/hr IV .Q0M PRN; Protocol PRN Reason: Hypoglycemia Protocol Cefepime HCl (Maxipime Iv 1 Gm Premix) 1 gm in 50 mls @ 100 mls/hr IVPB Q12H [facility]; Protocol Last Admin: 08/29/18 02:49 Dose: 100 mls/hr Insulin Aspart (Novolog) 0 unit SC Q6 [facility]; Protocol Last Admin: 08/29/18 12:04 Dose: 2 units Insulin Glargine (Lantus) 15 unit SC Q12 [facility] Last Admin: 08/23/18 10:39 Dose: Not Given Lactobacillus Acidophilus (Bacid Acidophilus) 1 cap PEG Q12 [facility] Last Admin: 08/29/18 09:49 Dose: 1 cap Methimazole (Tapazole) 20 mg PO Q8 [facility] Last Admin: 08/29/18 06:27 Dose: 20 mg Multivitamins (Hexavitamin) 1 tab PEG DAILY [facility] Last Admin: 08/29/18 09:49 Dose: 1 tab Pantoprazole Sodium (Protonix Susp) 40 mg GT Q12H [facility] Last Admin: 08/29/18 09:49 Dose: 40 mg - Labs Labs: 08/29/18 06:05 08/29/18 06:03 PT 13.9 SECONDS (9.7-12.2) H 08/29/18 06:05 INR 1.3 08/29/18 06:05 APTT 28 SECONDS (21-34) 08/29/18 06:05 - Additional Findings Additional findings: - Constitutional Appears: Agitated, Confused, Chronically Ill - Head Exam Head Exam: ATRAUMATIC, NORMOCEPHALIC - Eye Exam Eye Exam: R pupil sluggish reaction to light slightly smaller than L pupil, - ENT Exam Additional comments: Trach present - Respiratory Exam Respiratory Exam: Clear to Ausculation Bilateral, NORMAL BREATHING PATTERN - Cardiovascular Exam Cardiovascular Exam: REGULAR RHYTHM, +S1, +S2 - GI/Abdominal Exam GI & Abdominal Exam: Soft, Normal Bowel Sounds. absent: Tenderness Additional comments: PEG present - Extremities Exam Extremities Exam: Full ROM, Normal Inspection - Neurological Exam Neurological Exam: Altered, Awake. absent: Oriented x3 - Psychiatric Exam Psychiatric exam: absent: Normal Affect, Normal Mood - Skin Skin Exam: Dry, Normal Color Assessment and Plan - Assessment and Plan (Free Text) Assessment: This is a 52yo F originally admitted to the ICU for Septic shock 2/2 to PNA/UTI worsened by embolic stroke, cardiac arrest, and anoxic brain injury. Pt is POD 4 for IVC filter. Plan: Septic Shock secondary to Pneumonia and Urinary Tract Infection Pt afebrile Trach Aspirate: Psuedomonas Bronchoscopy by Dr. Lozada (08/23/18) culture showed Pseudomonas aerguinosa ID consulted, recs appreciated HELD Micafungin due to transaminitis Cefepime 1g q12 IVPB Neg urine culture Blood culture (08/25) prelim shows no growth x72 hours CXR (08/28) Possible pulmonary edema vs bibasilar pna Acute Ischemic Hepatitis Possibly secondary to hypotension Downtrending Avoid hepatotoxic medications Hep panel is negative Abd US shows bilateral pleural effusions, patent portal vein, no hydronephrosis, no GB stones or cholecystitis Abd/pelv CT shows limited evlauation of possible hepatic vein thrombosis without IV contrast administration. Distended urinary bladder, 1.2 cm soft tissue nodule at the left adrenal gland GI, Dr. London, evaluated the pt and pt's transaminitis is believed to be likely due to hypotension as well Rapid decrease in LFTs is good prognosis. Anoxic Encephalopathy s/p code Blue 07/10 and 07/20 Pt is not at baseline as per Continue to monitor Neurology consulted, recs appreciated Neg CT head w/o contrast, poor visualization Acute Respiratory Failure s/p tracheostomy 07/24/18 Dr. Lozada will continue to attempt to wean off of vent. Unsuccessful so far. Duonebs 3ml Inh Q6H Mucomyst for secretions CXR with pnuemonia possibly contributing to respiratory failure Ventricular Tachycardia NSTEMI Apical Thrombus LLE DVT Code Blue 07/10: SVT==>VT required amiodarone, magnesium, one shock delivered Code Blue 07/20: vtach s/p amiodarone, fluid, calcium gluconate, required compressions and shock Cardiology Dr Francisco on case help appreciated No cath needed. Medical management No chemical anticoagulation in light of bleeding episodes (patient has dysfunction uterine bleeding required blood transfusions; Ob has been consulted earlier in the hospitalization to inpatient workup)-->recommending heparin 5000 unit subq8 (DVT ppx dose) and aspirin 81mg PO daily; likely thrombus is organized a month of anticoagulation; risk is due to bleeding against stroke d/c Propranolol 5mg PO TID (hold SBP<100 and HR<60) Eliquis d/c bleeding and anemia-->dvt ppx and aspirin Echo discussed with Dr. Francisco, patient does have residual clot-->aware we cannot anticoagulate given heavy vaginal bleeding; if patient can tolerate possible aspirin Pt noted to be tachycardic at 130, likely secondary to fever. Will give L opressor 2.5 mg IVP x1 dose. Restarted Propanolol 1 mg IVP Q6H, (hold SBP<100 and HR<60) Diabetes HgBA1c: 7.8 Hypoglycemic protocol Sugars have ranged from 150-200 x 24 hours Accuchecks Q4H off Crestor 5mg PO qHS secondary to LFTs Acute on Chronic Renal Failure Nephrology (Dr. Hyde) on board--> help appreciated No indication for HD at this time Continues to improve Hyperthyroidism? Low TSH, and Free T4 Thyroid Storm Note Thyroid studies taken before amiodarone was given (please advised this is not amiodarone induced her levels were abnormal prior) Patient does not have prior thyroid history Endocrinology (Dr. Gayle) on board help appreciated Thyroid U/S 07/16/18: showed heterogenous thydroid with multiple nodules bilaterally. She will need outpatient FNA Bx of the complex Left Lobe cyst (please see full report) Methimazole 20mg PO TID off Propranolol 5 mg PO TID due to hypotension Monitor LFTs Anemia Likely Secondary to Chronic Diseases Iron normal, TIBC low, Iron Saturation normal, Ferritin normal Stool occult blood negative B12 normal Folate Normal Transfused 1 unit PRBC 07/22/18, 2 unit of PRBC 08/13/18 1 unit on 08/17/18, 1 unit 08/23/18 Patient has been seen by OB Hospitalist; no contraindication to anticoagulation Case discussed with senior vice president & general counsel recommending against eliquis in light of bleeding; recommending for DVT ppx and aspirin Vitamin D deficiency 50,000 international units once a week (3 doses given so far) Restart Vitamin D 50,000 IU once a week for 9 weeks (on 08/18/18) Hypernatremia 152 today Discontinue NS IVF LLE DVT Eliquis 5 mg PO BID d/c 08/17 s/p IVC filter (08/23/18) Deconditioning Continue PT/OT Continue to attempt to wean off of vent PPX Protonix 40mg IVP BID Lactobacillus 1 cap PO BID MVI 1x/day Vitamin C 1,000 NG 1x/day s/p Trach and Peg SCD on Right and contraindicated on Left due to DVT Peg feedings Continue Pulmocare at 40cc/hr PICC Line 07/31/18 bronchoscopy 08/23 IVC filter 08/23 case d/w Dr Laz Villegas PGY1 <[place] - Last Filed: 08/29/18 19:02> Objective - Vital Signs/Intake and Output Vital Signs (last 24 hours): Temp Pulse Resp BP Pulse Ox 99 F 90 18 128/68 96 08/29/18 04:00 08/29/18 04:00 08/29/18 04:00 08/29/18 04:00 08/29/18 04:00 Intake and Output: 08/29/18 08/29/18 06:59 18:59 Intake Total 410 1030 Balance 410 1030 - Medications Medications: Current Medications Albuterol/Ipratropium (Duoneb 3 Mg/0.5 Mg (3 Ml) Ud) 3 ml INH RQ6 [facility] Last Admin: 08/29/18 13:57 Dose: 3 ml Ascorbic Acid (Vitamin C 500 Mg Tab) 1,000 mg NG DAILY [facility] Last Admin: 08/29/18 09:49 Dose: 1,000 mg Bacitracin (Bacitracin) 1 ea TOP BID [facility] Last Admin: 08/29/18 18:06 Dose: 1 ea Dextrose (Dextrose 50% Inj) 0 ml IVP .STAT PRN; Protocol PRN Reason: Hypoglycemia Protocol Dextrose (Glutose 15) 0 gm PO .ONCE PRN; Protocol PRN Reason: Hypoglycemia Protocol Ergocalciferol (Drisdol 50,000 Intl Units Cap) 1 cap GT Q7D [facility] Stop: 10/06/18 19:16 Last Admin: 08/25/18 20:03 Dose: 1 cap Glucagon (Glucagen Diagnostic Kit) 0 mg IM .STAT PRN; Protocol PRN Reason: Hypoglycemia Protocol Cefepime HCl (Maxipime Iv 1 Gm Premix) 1 gm in 50 mls @ 100 mls/hr IVPB Q12H [facility]; Protocol Last Admin: 08/29/18 14:45 Dose: 100 mls/hr Insulin Aspart (Novolog) 0 unit SC Q6 [facility]; Protocol Last Admin: 08/29/18 18:05 Dose: Not Given Insulin Glargine (Lantus) 15 unit SC Q12 [facility] Last Admin: 08/23/18 10:39 Dose: Not Given Lactobacillus Acidophilus (Bacid Acidophilus) 1 cap PEG Q12 [facility] Last Admin: 08/29/18 09:49 Dose: 1 cap Methimazole (Tapazole) 20 mg PO Q8 [facility] Last Admin: 08/29/18 14:46 Dose: 20 mg Multivitamins (Hexavitamin) 1 tab PEG DAILY [facility] Last Admin: 08/29/18 09:49 Dose: 1 tab Pantoprazole Sodium (Protonix Susp) 40 mg GT Q12H [facility] Last Admin: 08/29/18 09:49 Dose: 40 mg - Labs Labs: 08/29/18 06:05 08/29/18 06:03 PT 13.9 SECONDS (9.7-12.2) H 08/29/18 06:05 INR 1.3 08/29/18 06:05 APTT 28 SECONDS (21-34) 08/29/18 06:05 Attending/Attestation - Attestation I have personally seen and examined this patient.: Yes I have fully participated in the care of the patient.: Yes I have reviewed all pertinent clinical information, including history, physical exam and plan: Yes Notes (Text): 08/29/18 18:48 Patient was seen and examined at 6:45 PM Care of this patient was gone over with resident. Please also note the following: Blood culture 08/27/18 is negative to date Urine culture 08/27/[address] Head 08/28/18 done due to Right Pupil smaller and sluggishly reactive to light when compared to the left Pupil: did not show acute infarct but limited due to patient's motion. Mastoiditis: as noted on CT Head 08/28/18. Patient is already on Cefepime for the bilateral pneumonia. ENT consult for any additional recommendations Patient has some excoriations in the sacral area: being treated with Aloe [place] and turning patient every 2 hours She is receiving [facility] at 40 ml/hr via Peg Tube Lengthy conversation with on 08/28/18 about inability to wean patient off of trach and this was likely secondary to the bilateral pneumonia and that the longer that we could not wean patient, the greater the risk for additional infection. I explained to him on 08/28/18 that her prognosis did not appear to be promising at that time. Spoke with tar roofer Dr. Lozada who is helping medicine team to wean patient from trach: patient needs to be moved to telemetry floor and out of ICU to reduce her chances of picking up ICU associated infections. Unfortunately we were not succussful in doing this due to hospital being in [facility]. [place] D.O.
[2018-08-30] MEDS: (Novolog) Insulin Aspart, Recombinant 100 u/ml 10 ml vial SC SCH ×4 (00:07→18:15)
[2018-08-30] MEDS: Cefepime IV 1 gm in Dextrose 1 GM/50 ML BAG IVPB SCH ×2 (02:11→14:44)
[2018-08-30] MEDS: Albuterol-Ipratrop 3 mg / 0.5 (3 ml) UD INH SCH ×4 (02:43→19:14)
[2018-08-30 05:53] LABS: BASO % 0.7 % (0.0-2.0); EOS # 0.2 K/uL (0.0-0.7); EOS % 3.1 % (0.0-4.0); HEMOGLOBIN 9.3 g/dL (11.0-16.0); LYMPH # 1.1 K/uL (1.0-4.3); LYMPH % 16.5 % (20.0-40.0); MEAN CELL VOLUME 88.8 fL (81.0-99.0); MEAN CORPUSCULAR HEMOGLOBIN 29.5 pg (27.0-31.0); MEAN CORPUSCULAR HGB CONC 33.3 g/dL (33.0-37.0); MEAN PLATELET VOLUME 8.5 fL (7.2-11.7); MONO # 0.4 K/uL (0.0-0.8); MONO % 5.7 % (0.0-10.0); NEUT # 4.8 K/uL (1.8-7.0); NRBC % 0.1 % (0.0-2.0); RBC 3.13 Mil/uL (3.80-5.20); RED CELL DISTRIBUTION WIDTH 18.1 % (11.5-14.5); WHITE BLOOD COUNT 6.4 K/uL (4.8-10.8)
[2018-08-30 05:58] LABS: INR 1.3
[2018-08-30 06:20] LABS: ALB/GLOB RATIO 0.7 (1.0-2.1); ALBUMIN 2.3 g/dL (3.5-5.0); ALT/SGPT 706 U/L (9-52); AST/SGOT 92 U/L (14-36); BLOOD UREA NITROGEN 34 mg/dL (7-17); CALCIUM 7.8 mg/dl (8.6-10.4); GFR NON-AFRICAN AMERICAN > 60
[2018-08-30] MEDS: Pantoprazole 40 mg Susp UD GT SCH ×2 (10:10→21:42)
[2018-08-30] MEDS: Multiple Vitamins Tab PEG SCH (10:11)
[2018-08-30] MEDS: Lactobacillus Acidophilus 500 MU Cap PEG SCH ×2 (10:12→21:42)
--- NOTE | 2018-08-30 14:30 | CP.PCM.PN ---
<Bhanu Villegas - Last Filed: 08/30/18 14:49> Subjective - Date & Time of Evaluation Date of Evaluation: 08/30/18 Time of Evaluation: 14:28 - Subjective Subjective: Hospitalist Service Pt seen and examined at bedside. Pt unable to provide ROS. Pt active arm movemnet and follows with eyes momentarily. As per nursing Objective - Vital Signs/Intake and Output Vital Signs (last 24 hours): Temp Pulse Resp BP Pulse Ox 97.2 F L 76 17 110/51 L 96 08/30/18 12:00 08/30/18 12:00 08/30/18 12:00 08/30/18 12:00 08/30/18 12:00 Intake and Output: 08/30/18 08/30/18 06:59 18:59 Intake Total 850 160 Balance 850 160 - Medications Medications: Current Medications Albuterol/Ipratropium (Duoneb 3 Mg/0.5 Mg (3 Ml) Ud) 3 ml INH RQ6 [facility] Last Admin: 08/30/18 14:17 Dose: 3 ml Ascorbic Acid (Vitamin C 500 Mg Tab) 1,000 mg NG DAILY [facility] Last Admin: 08/30/18 10:10 Dose: 1,000 mg Bacitracin (Bacitracin) 1 ea TOP BID [facility] Last Admin: 08/29/18 18:06 Dose: 1 ea Dextrose (Dextrose 50% Inj) 0 ml IVP .STAT PRN; Protocol PRN Reason: Hypoglycemia Protocol Dextrose (Glutose 15) 0 gm PO .ONCE PRN; Protocol PRN Reason: Hypoglycemia Protocol Ergocalciferol (Drisdol 50,000 Intl Units Cap) 1 cap GT Q7D [facility] Stop: 10/06/18 19:16 Last Admin: 08/25/18 20:03 Dose: 1 cap Glucagon (Glucagen Diagnostic Kit) 0 mg IM .STAT PRN; Protocol PRN Reason: Hypoglycemia Protocol Cefepime HCl (Maxipime Iv 1 Gm Premix) 1 gm in 50 mls @ 100 mls/hr IVPB Q12H [facility]; Protocol Last Admin: 08/30/18 02:11 Dose: 100 mls/hr Insulin Aspart (Novolog) 0 unit SC Q6 [facility]; Protocol Last Admin: 08/30/18 12:07 Dose: Not Given Insulin Glargine (Lantus) 15 unit SC Q12 [facility] Last Admin: 08/23/18 10:39 Dose: Not Given Lactobacillus Acidophilus (Bacid Acidophilus) 1 cap PEG Q12 [facility] Last Admin: 08/30/18 10:12 Dose: 1 cap Methimazole (Tapazole) 20 mg PO Q8 [facility] Last Admin: 08/30/18 05:53 Dose: 20 mg Multivitamins (Hexavitamin) 1 tab PEG DAILY [facility] Last Admin: 08/30/18 10:11 Dose: 1 tab Pantoprazole Sodium (Protonix Susp) 40 mg GT Q12H [facility] Last Admin: 08/30/18 10:10 Dose: 40 mg - Labs Labs: 08/30/18 05:42 08/30/18 05:42 PT 14.0 SECONDS (9.7-12.2) H 08/30/18 05:42 INR 1.3 08/30/18 05:42 APTT 29 SECONDS (21-34) 08/30/18 05:42 - Additional Findings Additional findings: - Constitutional Appears: Agitated, Confused, Chronically Ill - Head Exam Head Exam: ATRAUMATIC, NORMOCEPHALIC - Eye Exam Eye Exam: R pupil sluggish reaction to light slightly smaller than L pupil, - ENT Exam Additional comments: Trach present - Respiratory Exam Respiratory Exam: Clear to Ausculation Bilateral, NORMAL BREATHING PATTERN - Cardiovascular Exam Cardiovascular Exam: REGULAR RHYTHM, +S1, +S2 - GI/Abdominal Exam GI & Abdominal Exam: Soft, Normal Bowel Sounds. absent: Tenderness Additional comments: PEG present - Extremities Exam Extremities Exam: Full ROM, Normal Inspection - Neurological Exam Neurological Exam: Altered, Awake. absent: Oriented x3 - Psychiatric Exam Psychiatric exam: absent: Normal Affect, Normal Mood - Skin Skin Exam: Dry, Normal Color, sacral excoriation seen, no ulceration no bleeding non erythematous, bony prominences no signs of ulcer/ sore Assessment and Plan - Assessment and Plan (Free Text) Assessment: This is a 52yo F originally admitted to the ICU for Septic shock 2/2 to PNA/UTI worsened by embolic stroke, cardiac arrest, and anoxic brain injury. Pt is POD 4 for IVC filter. Plan: Septic Shock secondary to Pneumonia and Urinary Tract Infection Pt afebrile Trach Aspirate: Psuedomonas Bronchoscopy by Dr. Lozada (08/23/18) culture showed Pseudomonas aerguinosa ID consulted, recs appreciated HELD Micafungin due to transaminitis Cefepime 1g q12 IVPB Neg urine culture Blood culture (08/25) prelim shows no growth x72 hours CXR (08/28) Possible pulmonary edema vs bibasilar pna Acute Ischemic Hepatitis Possibly secondary to hypotension Downtrending Avoid hepatotoxic medications Hep panel is negative Abd US shows bilateral pleural effusions, patent portal vein, no hydronephrosis, no GB stones or cholecystitis Abd/pelv CT shows limited evlauation of possible hepatic vein thrombosis without IV contrast administration. Distended urinary bladder, 1.2 cm soft tissue nodule at the left adrenal gland GI, Dr. London, evaluated the pt and pt's transaminitis is believed to be likely due to hypotension as well Rapid decrease in LFTs is good prognosis. Anoxic Encephalopathy s/p code Blue 07/10 and 07/20 Pt is not at baseline as per Continue to monitor Neurology consulted, recs appreciated Neg CT head w/o contrast, poor visualization Acute Respiratory Failure s/p tracheostomy 07/24/18 Dr. Lozada will continue to attempt to wean off of vent. Unsuccessful so far. Duonebs 3ml Inh Q6H Mucomyst for secretions CXR with pnuemonia possibly contributing to respiratory failure Ventricular Tachycardia NSTEMI Apical Thrombus LLE DVT Code Blue 07/10: SVT==>VT required amiodarone, magnesium, one shock delivered Code Blue 07/20: vtach s/p amiodarone, fluid, calcium gluconate, required compressions and shock Cardiology Dr Francisco on case help appreciated No cath needed. Medical management No chemical anticoagulation in light of bleeding episodes (patient has dysfunction uterine bleeding required blood transfusions; Ob has been consulted earlier in the hospitalization to inpatient workup)-->recommending heparin 5000 unit subq8 (DVT ppx dose) and aspirin 81mg PO daily; likely thrombus is organized a month of anticoagulation; risk is due to bleeding against stroke d/c Propranolol 5mg PO TID (hold SBP<100 and HR<60) Eliquis d/c bleeding and anemia-->dvt ppx and aspirin Echo discussed with Dr. Francisco, patient does have residual clot-->aware we cannot anticoagulate given heavy vaginal bleeding; if patient can tolerate possible as pirin Pt noted to be tachycardic at 130, likely secondary to fever. Will give Lopressor 2.5 mg IVP x1 dose. Restarted Propanolol 1 mg IVP Q6H, (hold SBP<100 and HR<60) Diabetes HgBA1c: 7.8 Hypoglycemic protocol Sugars have ranged from 150-200 x 24 hours Accuchecks Q4H off Crestor 5mg PO qHS secondary to LFTs Acute on Chronic Renal Failure Nephrology (Dr. Hyde) on board--> help appreciated No indication for HD at this time Continues to improve Hyperthyroidism? Low TSH, and Free T4 Thyroid Storm Note Thyroid studies taken before amiodarone was given (please advised this is not amiodarone induced her levels were abnormal prior) Patient does not have prior thyroid history Endocrinology (Dr. Gayle) on board help appreciated Thyroid U/S 07/16/18: showed heterogenous thydroid with multiple nodules bilaterally. She will need outpatient FNA Bx of the complex Left Lobe cyst (please see full report) Methimazole 20mg PO TID off Propranolol 5 mg PO TID due to hypotension Monitor LFTs Anemia Likely Secondary to Chronic Diseases Iron normal, TIBC low, Iron Saturation normal, Ferritin normal Stool occult blood negative B12 normal Folate Normal Transfused 1 unit PRBC 07/22/18, 2 unit of PRBC 08/13/18 1 unit on 08/17/18, 1 unit 08/23/18 Patient has been seen by OB Hospitalist; no contraindication to anticoagulation Case discussed with senior research fellow recommending against eliquis in light of bleeding; recommending for DVT ppx and aspirin Vitamin D deficiency 50,000 international units once a week (3 doses given so far) Restart Vitamin D 50,000 IU once a week for 9 weeks (on 08/18/18) Hypernatremia 152 today Discontinue NS IVF LLE DVT Eliquis 5 mg PO BID d/c 08/17 s/p IVC filter (08/23/18) Deconditioning Continue PT/OT Continue to attempt to wean off of vent PPX Protonix 40mg IVP BID Lactobacillus 1 cap PO BID MVI 1x/day Vitamin C 1,000 NG 1x/day s/p Trach and Peg SCD on Right and contraindicated on Left due to DVT Peg feedings Continue [facility] at 40cc/hr PICC Line 07/31/18 bronchoscopy 08/23 IVC filter 08/23 case d/w Dr Laz Villegas PGY1 <[place]itt - Last Filed: 08/30/18 17:11> Objective - Vital Signs/Intake and Output Vital Signs (last 24 hours): Temp Pulse Resp BP Pulse Ox 97.6 F 102 H 24 148/66 97 08/30/18 16:00 08/30/18 16:00 08/30/18 16:00 08/30/18 16:00 08/30/18 16:00 Intake and Output: 08/30/18 08/30/18 06:59 18:59 Intake Total 850 320 Balance 850 320 - Medications Medications: Current Medications Albuterol/Ipratropium (Duoneb 3 Mg/0.5 Mg (3 Ml) Ud) 3 ml INH RQ6 [facility] Last Admin: 08/30/18 14:17 Dose: 3 ml Ascorbic Acid (Vitamin C 500 Mg Tab) 1,000 mg NG DAILY [facility] Last Admin: 08/30/18 10:10 Dose: 1,000 mg Bacitracin (Bacitracin) 1 ea TOP BID [facility] Last Admin: 08/30/18 14:43 Dose: 1 ea Dextrose (Dextrose 50% Inj) 0 ml IVP .STAT PRN; Protocol PRN Reason: Hypoglycemia Protocol Dextrose (Glutose 15) 0 gm PO .ONCE PRN; Protocol PRN Reason: Hypoglycemia Protocol Ergocalciferol (Drisdol 50,000 Intl Units Cap) 1 cap GT Q7D [facility] Stop: 10/06/18 19:16 Last Admin: 08/25/18 20:03 Dose: 1 cap Glucagon (Glucagen Diagnostic Kit) 0 mg IM .STAT PRN; Protocol PRN Reason: Hypoglycemia Protocol Cefepime HCl (Maxipime Iv 1 Gm Premix) 1 gm in 50 mls @ 100 mls/hr IVPB Q12H [facility]; Protocol Last Admin: 08/30/18 14:44 Dose: 100 mls/hr Insulin Aspart (Novolog) 0 unit SC Q6 [facility]; Protocol Last Admin: 08/30/18 12:07 Dose: Not Given Insulin Glargine (Lantus) 15 unit SC Q12 [facility] Last Admin: 08/23/18 10:39 Dose: Not Given Lactobacillus Acidophilus (Bacid Acidophilus) 1 cap PEG Q12 [facility] Last Admin: 08/30/18 10:12 Dose: 1 cap Methimazole (Tapazole) 20 mg PO Q8 [facility] Last Admin: 08/30/18 14:45 Dose: 20 mg Multivitamins (Hexavitamin) 1 tab PEG DAILY [facility] Last Admin: 08/30/18 10:11 Dose: 1 tab Pantoprazole Sodium (Protonix Susp) 40 mg GT Q12H [facility] Last Admin: 08/30/18 10:10 Dose: 40 mg - Labs Labs: 08/30/18 05:42 08/30/18 05:42 PT 14.0 SECONDS (9.7-12.2) H 08/30/18 05:42 INR 1.3 08/30/18 05:42 APTT 29 SECONDS (21-34) 08/30/18 05:42 Attending/Attestation - Attestation I have personally seen and examined this patient.: Yes I have fully participated in the care of the patient.: Yes I have reviewed all pertinent clinical information, including history, physical exam and plan: Yes Notes (Text): 08/30/18 17:07 Patient was seen and examined at 4:45 PM 08/30/18 Care of this patient was gone over with resident. Please also note the following: Liver enzymes are trending down. Blood culture 08/27/18 is negative to date Urine culture 08/27/[address] Head 08/28/18 done due to Right Pupil smaller and sluggishly reactive to light when compared to the left Pupil: did not show acute infarct but limited due to patient's motion. Possible Right Eye Infection: Tobramycin 2 drops every 6 hours for now. Mastoiditis: as noted on CT Head 08/28/18. Patient is already on Cefepime for the bilateral pneumonia. ENT consult for any additional recommendations Patient has some excoriations in the sacral area: being treated with Aloe Otley and turning patient every 2 hours She is receiving [facility] at 40 ml/hr via Peg Tube Lengthy conversation with on 08/28/18 about inability to wean patient off of trach and this was likely secondary to the bilateral pneumonia and that the longer that we could not wean patient, the greater the risk for additional infection. I explained to him on 08/28/18 that her prognosis did not appear to be promising at that time. Spoke with front desk officer Dr. Lozada who is helping medicine team to wean patient from trach: patient needs to be moved to telemetry floor and out of ICU to reduce her chances of picking up ICU associated infections. Unfortunately we were not succussful in doing this due to hospital being in [facility]. Nroth Nesbitt D.O.
[2018-08-30] MEDS: Bacitracin 500 Units/gm Oint Foilpak UD TOP SCH ×2 (14:43→17:56)
--- NOTE | 2018-08-30 15:02 | CP.PCM.PN ---
Subjective - Date & Time of Evaluation Date of Evaluation: 08/30/18 Time of Evaluation: 11:00 - Subjective Subjective: Patient is a 52 year old female with PMH of DM and Hyperthyroidism who presented with complaints of productive cough and generalized malaise. Pulmonary was consulted to help patient wean off ventilator. On admission, she was reported to be coughing to the point where she was vomiting food contents. Patient has tried to eat and drink and immediately vomits it up. Today, patient was seen and examined at bedside and she was unable to provide ROS. Trach'd PEG'd, responds to stimuli. Vitals stable. PMH - Diabetes Mellitus, Hyperthyrodism, Vit D Deficiency, Anemia Surg Hx- Denies Fam Hx - Denies Medications - Duoneb 3 mg, Vit C 500 mg, Bacitracin 1 each, Cefeppime 1 mg, Drisdol 50, 000 units, Tapazole 20 mg, Protonix 40 mg Social Hx - Denies smoking, alcohol, or illicit drug use. is a smoker Allergies - NKDA Blood and urine cultures were negative on 08/27/18. Chest X-Ray (08/28/18): Increasing bi-basiilar ill-defined opacity. Pulmonary edema vs bilateral pneumonia. Bronchoscopy (08/23/18) culture showed Pseudomonal Aerguinosa. ID was consulted. Patient will benefit from moving out of ICU to Telemetry floor to reduce chances of ICU associated infections. Continue to monitor patient. Objective - Vital Signs/Intake and Output Vital Signs (last 24 hours): Temp Pulse Resp BP Pulse Ox 97.2 F L 76 17 110/51 L 96 08/30/18 12:00 08/30/18 12:00 08/30/18 12:00 08/30/18 12:00 08/30/18 12:00 Intake and Output: 08/30/18 08/30/18 06:59 18:59 Intake Total 850 160 Balance 850 160 - Medications Medications: Current Medications Albuterol/Ipratropium (Duoneb 3 Mg/0.5 Mg (3 Ml) Ud) 3 ml INH RQ6 [facility] Last Admin: 08/30/18 14:17 Dose: 3 ml Ascorbic Acid (Vitamin C 500 Mg Tab) 1,000 mg NG DAILY [facility] Last Admin: 08/30/18 10:10 Dose: 1,000 mg Bacitracin (Bacitracin) 1 ea TOP BID [facility] Last Admin: 08/30/18 14:43 Dose: 1 ea Dextrose (Dextrose 50% Inj) 0 ml IVP .STAT PRN; Protocol PRN Reason: Hypoglycemia Protocol Dextrose (Glutose 15) 0 gm PO .ONCE PRN; Protocol PRN Reason: Hypoglycemia Protocol Ergocalciferol (Drisdol 50,000 Intl Units Cap) 1 cap GT Q7D [facility] Stop: 10/06/18 19:16 Last Admin: 08/25/18 20:03 Dose: 1 cap Glucagon (Glucagen Diagnostic Kit) 0 mg IM .STAT PRN; Protocol PRN Reason: Hypoglycemia Protocol Cefepime HCl (Maxipime Iv 1 Gm Premix) 1 gm in 50 mls @ 100 mls/hr IVPB Q12H [facility]; Protocol Last Admin: 08/30/18 14:44 Dose: 100 mls/hr Insulin Aspart (Novolog) 0 unit SC Q6 [facility]; Protocol Last Admin: 08/30/18 12:07 Dose: Not Given Insulin Glargine (Lantus) 15 unit SC Q12 [facility] Last Admin: 08/23/18 10:39 Dose: Not Given Lactobacillus Acidophilus (Bacid Acidophilus) 1 cap PEG Q12 [facility] Last Admin: 08/30/18 10:12 Dose: 1 cap Methimazole (Tapazole) 20 mg PO Q8 [facility] Last Admin: 08/30/18 14:45 Dose: 20 mg Multivitamins (Hexavitamin) 1 tab PEG DAILY [facility] Last Admin: 08/30/18 10:11 Dose: 1 tab Pantoprazole Sodium (Protonix Susp) 40 mg GT Q12H [facility] Last Admin: 08/30/18 10:10 Dose: 40 mg - Labs Labs: 08/30/18 05:42 08/30/18 05:42 PT 14.0 SECONDS (9.7-12.2) H 08/30/18 05:42 INR 1.3 08/30/18 05:42 APTT 29 SECONDS (21-34) 08/30/18 05:42
--- NOTE | 2018-08-30 18:06 | CP.PCM.PCO ---
Physician Communication Note - Physician Communication Note Physician Communication Note: Please see above
[2018-08-30] MEDS: Tobramycin 0.3% OPHT SOLN OD SCH (18:17)
--- NOTE | 2018-08-30 20:35 | CON ---
DATE: 08/30/2018 REASON FOR CONSULTATION: Possible mastoiditis. HISTORY OF PRESENT ILLNESS: This is a 52-year-old female, who has onset of possible mastoiditis on CAT scan. The patient does not communicate and has now altered mental status, therefore further history could not be obtained. The mastoiditis possibly was noted on both sides. PAST MEDICAL HISTORY: As noted in the chart by me. MEDICATIONS: As noted in the chart by me. PHYSICAL EXAMINATION: HEAD: Atraumatic and normocephalic. FACE: Cannot be assessed as the patient is not cooperative. CONSTITUTIONAL: Well fed, well nourished. COMMUNICATION: The patient does not communicate appropriately. EXTERNAL NOSE AND EARS: No masses. No lesions. No erythema. No edema. Ears, TM intact, no fluid behind it. INTERNAL NOSE AND EARS: Deviated septum. No masses. No lesions. No erythema. No edema. ORAL CAVITY AND OROPHARYNX: No masses. No lesions. No erythema. No edema. LIPS AND GUMS: No masses. No lesions. No erythema. No edema. NECK: Supple. Trach in place. THYROID: No thyromegaly. No goiter. Thyroid exam limited secondary to trach. LYMPH NODES: No lymphadenopathy of the neck. Again, thyroid exam is also somewhat limited secondary to trach that is in place. LABORATORY DATA: CAT scan of the head was reviewed by me. It shows some sclerotic changes in the mastoid air cells. ASSESSMENT: Chronic sclerotic changes in the mastoid air cells. No evidence of acute mastoiditis to the septum. . Lavelle Pulliam MD
[2018-08-31] MEDS: (Novolog) Insulin Aspart, Recombinant 100 u/ml 10 ml vial SC SCH ×4 (00:51→17:59)
[2018-08-31] MEDS: Tobramycin 0.3% OPHT SOLN OD SCH ×5 (00:52→23:51)
[2018-08-31] MEDS: Cefepime IV 1 gm in Dextrose 1 GM/50 ML BAG IVPB SCH ×2 (02:13→13:36)
[2018-08-31] MEDS: Albuterol-Ipratrop 3 mg / 0.5 (3 ml) UD INH SCH ×4 (04:18→20:13)
[2018-08-31 05:57] LABS: BASO % 0.6 % (0.0-2.0); EOS # 0.3 K/uL (0.0-0.7); EOS % 4.2 % (0.0-4.0); LYMPH # 1.1 K/uL (1.0-4.3); LYMPH % 17.1 % (20.0-40.0); MEAN CELL VOLUME 88.3 fL (81.0-99.0); MEAN CORPUSCULAR HEMOGLOBIN 29.7 pg (27.0-31.0); MEAN CORPUSCULAR HGB CONC 33.7 g/dL (33.0-37.0); MEAN PLATELET VOLUME 8.5 fL (7.2-11.7); MONO # 0.5 K/uL (0.0-0.8); MONO % 7.4 % (0.0-10.0); NEUT # 4.7 K/uL (1.8-7.0); NEUT % 70.7 % (50.0-75.0); NRBC % 0.1 % (0.0-2.0); RBC 3.04 Mil/uL (3.80-5.20); RED CELL DISTRIBUTION WIDTH 18.9 % (11.5-14.5); WHITE BLOOD COUNT 6.6 K/uL (4.8-10.8)
[2018-08-31 06:00] LABS: INR 1.3; PROTHROMBIN TIME 13.7 SECONDS (9.7-12.2)
[2018-08-31 06:16] LABS: ALB/GLOB RATIO 0.7 (1.0-2.1); ALBUMIN 2.2 g/dL (3.5-5.0); ALT/SGPT 516 U/L (9-52); AST/SGOT 71 U/L (14-36); BLOOD UREA NITROGEN 27 mg/dL (7-17); CALCIUM 7.8 mg/dl (8.6-10.4); GFR NON-AFRICAN AMERICAN > 60
[2018-08-31] MEDS: Multiple Vitamins Tab PEG SCH (10:02)
[2018-08-31] MEDS: Bacitracin 500 Units/gm Oint Foilpak UD TOP SCH ×2 (10:02→17:57)
[2018-08-31] MEDS: Lactobacillus Acidophilus 500 MU Cap PEG SCH ×2 (10:03→21:24)
[2018-08-31] MEDS: Pantoprazole 40 mg Susp UD GT SCH ×2 (10:03→21:24)
--- NOTE | 2018-08-31 10:34 | CP.PCM.PN ---
<Bhanu Villegas - Last Filed: 08/31/18 16:44> Subjective - Date & Time of Evaluation Date of Evaluation: 08/31/18 Time of Evaluation: 10:31 - Subjective Subjective: Hospital Service Pt seen and examined at bedside. Pt still respinding to verbal and physical stimuli, spoke with at bedside, possible endometrial biopsy today. No acute events overnight as per nursing, vag bleeding stopped last 48hrs Objective - Vital Signs/Intake and Output Vital Signs (last 24 hours): Temp Pulse Resp BP Pulse Ox 98.2 F 86 15 123/63 96 08/31/18 04:00 08/31/18 04:00 08/31/18 04:00 08/31/18 04:00 08/31/18 04:00 Intake and Output: 08/31/18 08/31/18 06:59 18:59 Intake Total 790 Balance 790 - Medications Medications: Current Medications Albuterol/Ipratropium (Duoneb 3 Mg/0.5 Mg (3 Ml) Ud) 3 ml INH RQ6 [facility] Last Admin: 08/31/18 07:50 Dose: 3 ml Ascorbic Acid (Vitamin C 500 Mg Tab) 1,000 mg NG DAILY [facility] Last Admin: 08/31/18 10:02 Dose: 1,000 mg Bacitracin (Bacitracin) 1 ea TOP BID [facility] Last Admin: 08/31/18 10:02 Dose: 1 ea Dextrose (Dextrose 50% Inj) 0 ml IVP .STAT PRN; Protocol PRN Reason: Hypoglycemia Protocol Dextrose (Glutose 15) 0 gm PO .ONCE PRN; Protocol PRN Reason: Hypoglycemia Protocol Ergocalciferol (Drisdol 50,000 Intl Units Cap) 1 cap GT Q7D [facility] Stop: 10/06/18 19:16 Last Admin: 08/25/18 20:03 Dose: 1 cap Glucagon (Glucagen Diagnostic Kit) 0 mg IM .STAT PRN; Protocol PRN Reason: Hypoglycemia Protocol Cefepime HCl (Maxipime Iv 1 Gm Premix) 1 gm in 50 mls @ 100 mls/hr IVPB Q12H [facility]; Protocol Last Admin: 08/31/18 02:13 Dose: 100 mls/hr Insulin Aspart (Novolog) 0 unit SC Q6 [facility]; Protocol Last Admin: 08/31/18 06:35 Dose: Not Given Insulin Glargine (Lantus) 15 unit SC Q12 [facility] Last Admin: 08/23/18 10:39 Dose: Not Given Lactobacillus Acidophilus (Bacid Acidophilus) 1 cap PEG Q12 [facility] Last Admin: 08/31/18 10:03 Dose: 1 cap Methimazole (Tapazole) 20 mg PO Q8 [facility] Last Admin: 08/31/18 06:37 Dose: 20 mg Multivitamins (Hexavitamin) 1 tab PEG DAILY [facility] Last Admin: 08/31/18 10:02 Dose: 1 tab Pantoprazole Sodium (Protonix Susp) 40 mg GT Q12H [facility] Last Admin: 08/31/18 10:03 Dose: 40 mg Tobramycin Sulfate (Tobrex 0.3% Oph Soln) 2 drop OD Q6H [facility] Last Admin: 08/31/18 06:36 Dose: 2 drop - Labs Labs: 08/31/18 05:45 08/31/18 05:45 PT 13.7 SECONDS (9.7-12.2) H 08/31/18 05:45 INR 1.3 08/31/18 05:45 APTT 28 SECONDS (21-34) 08/31/18 05:45 - Additional Findings Additional findings: - Constitutional Appears: Agitated, Confused, Chronically Ill - Head Exam Head Exam: ATRAUMATIC, NORMOCEPHALIC - Eye Exam Eye Exam: R pupil sluggish reaction to light slightly smaller than L pupil, - ENT Exam Additional comments: Trach present - Respiratory Exam Respiratory Exam: Clear to Ausculation Bilateral, NORMAL BREATHING PATTERN - Cardiovascular Exam Cardiovascular Exam: REGULAR RHYTHM, +S1, +S2 - GI/Abdominal Exam GI & Abdominal Exam: Soft, Normal Bowel Sounds. absent: Tenderness Additional comments: PEG present - Extremities Exam Extremities Exam: Full ROM, Normal Inspection - Neurological Exam Neurological Exam: Altered, Awake. absent: Oriented x3 - Psychiatric Exam Psychiatric exam: absent: Normal Affect, Normal Mood - Skin Skin Exam: Dry, Normal Color, sacral excoriation seen, no ulceration no bleeding non erythematous, bony prominences no signs of ulcer/ sore Assessment and Plan - Assessment and Plan (Free Text) Assessment: This is a 52yo F originally admitted to the ICU for Septic shock 2/2 to PNA/UTI worsened by embolic stroke, cardiac arrest, and anoxic brain injury. Pt is POD 4 for IVC filter. Plan: Septic Shock secondary to Pneumonia and Urinary Tract Infection Pt afebrile Trach Aspirate: Psuedomonas Bronchoscopy by Dr. Lozada (08/23/18) culture showed Pseudomonas aerguinosa ID consulted, recs appreciated HELD Micafungin due to transaminitis Cefepime 1g q12 IVPB started 08/27 Neg urine culture Blood culture (08/25) prelim shows no growth x72 hours f/u tmrw CXR Vaginal Bleeding curently non-bleeding, 48hrs plan for possible endometrial biopsy today Monitor H&H Stable Off anticoag Acute Ischemic Hepatitis Possibly secondary to hypotension Downtrending Avoid hepatotoxic medications Hep panel is negative Abd US shows bilateral pleural effusions, patent portal vein, no hydronephrosis, no GB stones or cholecystitis Abd/pelv CT shows limited evlauation of possible hepatic vein thrombosis without IV contrast administration. Distended urinary bladder, 1.2 cm soft tissue nodule at the left adrenal gland GI, Dr. London, evaluated the pt and pt's transaminitis is believed to be likely due to hypotension as well Rapid decrease in LFTs is good prognosis. Anoxic Encephalopathy s/p code Blue 07/10 and 07/20 Pt is not at baseline as per Continue to monitor Neurology consulted, recs appreciated Neg CT head w/o contrast, poor visualization Acute Respiratory Failure s/p tracheostomy 07/24/18 Dr. Lozada will continue to attempt to wean off of vent. Unsuccessful so far. Duonebs 3ml Inh Q6H [facility] for secretions CXR with pnuemonia possibly contributing to respiratory failure Ventricular Tachycardia NSTEMI Apical Thrombus LLE DVT Code Blue 07/10: SVT==>VT required amiodarone, magnesium, one shock delivered Code Blue 07/20: vtach s/p amiodarone, fluid, calcium gluconate, required compressions and shock Cardiology Dr Francisco on case help appreciated No cath needed. Medical management No chemical anticoagulation in light of bleeding episodes (patient has dysfunction uterine bleeding required blood transfusions; Ob has been consulted earlier in the hospitalization to inpatient workup)-->recommending heparin 5000 unit subq8 (DVT ppx dose) and aspirin 81mg PO daily; likely thrombus is organized a month of anticoagulation; risk is due to bleeding against stroke d/c Propranolol 5mg PO TID (hold SBP<100 and HR<60) Eliquis d/c bleeding and anemia-->dvt ppx and aspirin Echo discussed with Dr. Francisco, patient does have residual clot-->aware we cannot anticoagulate given heavy vaginal bleeding; if patient can tolerate possible aspirin Pt noted to be tachycardic at 130, likely secondary to fever. Will give Lopressor 2.5 mg IVP x1 dose. Restarted Propanolol 1 mg IVP Q6H, (hold SBP<100 and HR<60) Diabetes HgBA1c: 7.8 Hypoglycemic protocol Sugars have ranged from 150-200 x 24 hours Accuchecks Q4H off Crestor 5mg PO qHS secondary to LFTs Acute on Chronic Renal Failure Nephrology (Dr. Hyde) on board--> help appreciated No indication for HD at this time Continues to improve Hyperthyroidism? Low TSH, and Free T4 Thyroid Storm Note Thyroid studies taken before amiodarone was given (please advised this is not amiodarone induced her levels were abnormal prior) Patient does not have prior thyroid history Endocrinology (Dr. Gayle) on board help appreciated Thyroid U/S 07/16/18: showed heterogenous thydroid with multiple nodules bilaterally. She will need outpatient FNA Bx of the complex Left Lobe cyst (please see full report) Methimazole 20mg PO TID off Propranolol 5 mg PO TID due to hypotension Monitor LFTs Anemia Likely Secondary to Chronic Diseases Iron normal, TIBC low, Iron Saturation normal, Ferritin normal Stool occult blood negative B12 normal Folate Normal Transfused 1 unit PRBC 07/22/18, 2 unit of PRBC 08/13/18 1 unit on 08/17/18, 1 unit 08/23/18 Patient has been seen by OB Hospitalist; no contraindication to anticoagulation Case discussed with manager product marketing recommending against eliquis in light of bleeding; recommending for DVT ppx and aspirin Vitamin D deficiency 50,000 international units once a week (3 doses given so far) Restart Vitamin D 50,000 IU once a week for 9 weeks (on 08/18/18) Hypernatremia 152 today Discontinue NS IVF LLE DVT Eliquis 5 mg PO BID d/c 08/17 s/p IVC filter (08/23/18) Deconditioning Continue PT/OT Continue to attempt to wean off of vent PPX Protonix 40mg IVP BID Lactobacillus 1 cap PO BID MVI 1x/day Vitamin C 1,000 NG 1x/day s/p Trach and Peg SCD on Right and contraindicated on Left due to DVT Peg feedings Continue [facility] at 40cc/hr PICC Line 07/31/18 bronchoscopy 08/23 IVC filter 08/23 case d/w Dr Armond Villegas PGY1 <Saira Leahy V - Last Filed: 08/31/18 19:38> Objective - Vital Signs/Intake and Output Vital Signs (last 24 hours): Temp Pulse Resp BP Pulse Ox 98.7 F 96 H 20 125/61 99 08/31/18 16:00 08/31/18 18:00 08/31/18 16:00 08/31/18 16:00 08/31/18 16:00 Intake and Output: 08/31/18 09/01/18 18:59 06:59 Intake Total 780 40 Output Total 3 1 Balance 777 39 - Medications Medications: Current Medications Albuterol/Ipratropium (Duoneb 3 Mg/0.5 Mg (3 Ml) Ud) 3 ml INH RQ6 [facility] Last Admin: 08/31/18 14:30 Dose: 3 ml Ascorbic Acid (Vitamin C 500 Mg Tab) 1,000 mg NG DAILY [facility] Last Admin: 08/31/18 10:02 Dose: 1,000 mg Bacitracin (Bacitracin) 1 ea TOP BID [facility] Last Admin: 08/31/18 17:57 Dose: 1 ea Dextrose (Dextrose 50% Inj) 0 ml IVP .STAT PRN; Protocol PRN Reason: Hypoglycemia Protocol Dextrose (Glutose 15) 0 gm PO .ONCE PRN; Protocol PRN Reason: Hypoglycemia Protocol Ergocalciferol (Drisdol 50,000 Intl Units Cap) 1 cap GT Q7D [facility] Stop: 10/06/18 19:16 Last Admin: 08/25/18 20:03 Dose: 1 cap Glucagon (Glucagen Diagnostic Kit) 0 mg IM .STAT PRN; Protocol PRN Reason: Hypoglycemia Protocol Cefepime HCl (Maxipime Iv 1 Gm Premix) 1 gm in 50 mls @ 100 mls/hr IVPB Q12H [facility]; Protocol Last Admin: 08/31/18 13:36 Dose: 100 mls/hr Insulin Aspart (Novolog) 0 unit SC Q6 [facility]; Protocol Last Admin: 08/31/18 17:59 Dose: Not Given Insulin Glargine (Lantus) 15 unit SC Q12 [facility] Last Admin: 08/23/18 10:39 Dose: Not Given Lactobacillus Acidophilus (Bacid Acidophilus) 1 cap PEG Q12 [facility] Last Admin: 08/31/18 10:03 Dose: 1 cap Methimazole (Tapazole) 20 mg PO Q8 [facility] Last Admin: 08/31/18 13:37 Dose: 20 mg Multivitamins (Hexavitamin) 1 tab PEG DAILY [facility] Last Admin: 08/31/18 10:02 Dose: 1 tab Pantoprazole Sodium (Protonix Susp) 40 mg GT Q12H [facility] Last Admin: 08/31/18 10:03 Dose: 40 mg Tobramycin Sulfate (Tobrex 0.3% [facility] Soln) 2 drop OD Q6H [facility] Last Admin: 08/31/18 18:00 Dose: 2 drop - Labs Labs: 08/31/18 05:45 08/31/18 05:45 PT 13.7 SECONDS (9.7-12.2) H 08/31/18 05:45 INR 1.3 08/31/18 05:45 APTT 28 SECONDS (21-34) 08/31/18 05:45 Assessment and Plan (1) Septic shock Status: Acute (2) Acute respiratory failure Status: Acute (3) Urinary tract infection Status: Acute (4) Acute renal failure Status: Acute (5) Aspiration pneumonia Status: Acute (6) Diabetes mellitus Status: Chronic (7) Ventricular arrhythmia Status: Acute (8) Hyperthyroidism Status: Acute (9) Anemia Status: Acute (10) Prophylactic measure Status: Acute Attending/Attestation - Attestation I have personally seen and examined this patient.: Yes I have fully participated in the care of the patient.: Yes I have reviewed all pertinent clinical information, including history, physical exam and plan: Yes Notes (Text): Patient seen, examined, case discussed with medical lab specialist. Patient seen this morning. Patient noted secretions or trig. Patient currently on Maxipime to cover for pseudomonal coverage. Patient's prior blood cultures are negative. Patient does not exhibit white count nor elevated white count. Patient liver function tests continued to downtrending. Patient seen by wound care. Patient noted to have a sacral breakdown. Patient would ideally benefit from not being the ICU give however we are and cold purple status is difficult to move patients. Please note the patient is still remains full code. Also did have a discussion with nurse also apparently appears to be sick advised to seek medical attention given that his currently is finding of pneumonia. No vaginal bleeding noted on exam. Patient is off both heparin drip and heparin DVT prophylaxis given dysfunctional uterine bleeding. Patient is also currently off aspirin as well given dysfunction liver attribute to ischemic insult to liver and likely due to sepsis.
--- NOTE | 2018-08-31 17:42 | CP.PCM.PN ---
Subjective - Date & Time of Evaluation Date of Evaluation: 08/31/18 Time of Evaluation: 09:25 - Subjective Subjective: Pt was seen and examined at bedside. Unable to ellicit information from pt because she is Trache'd and lethargic. Pt unable to provide ROS Vitals are stable and patient is not in respiratory distress. Continue to attempt to wean patient off from trach. Also, Continue to attempt moving patient out of ICU. Trial last night failed because patient became unstable. Objective - Vital Signs/Intake and Output Vital Signs (last 24 hours): Temp Pulse Resp BP Pulse Ox 98.7 F 79 20 125/61 99 08/31/18 16:00 08/31/18 16:00 08/31/18 16:00 08/31/18 16:00 08/31/18 16:00 Intake and Output: 08/31/18 08/31/18 06:59 18:59 Intake Total 790 740 Output Total 2 Balance 790 738 - Medications Medications: Current Medications Albuterol/Ipratropium (Duoneb 3 Mg/0.5 Mg (3 Ml) Ud) 3 ml INH RQ6 [facility] Last Admin: 08/31/18 14:30 Dose: 3 ml Ascorbic Acid (Vitamin C 500 Mg Tab) 1,000 mg NG DAILY [facility] Last Admin: 08/31/18 10:02 Dose: 1,000 mg Bacitracin (Bacitracin) 1 ea TOP BID [facility] Last Admin: 08/31/18 10:02 Dose: 1 ea Dextrose (Dextrose 50% Inj) 0 ml IVP .STAT PRN; Protocol PRN Reason: Hypoglycemia Protocol Dextrose (Glutose 15) 0 gm PO .ONCE PRN; Protocol PRN Reason: Hypoglycemia Protocol Ergocalciferol (Drisdol 50,000 Intl Units Cap) 1 cap GT Q7D [facility] Stop: 10/06/18 19:16 Last Admin: 08/25/18 20:03 Dose: 1 cap Glucagon (Glucagen Diagnostic Kit) 0 mg IM .STAT PRN; Protocol PRN Reason: Hypoglycemia Protocol Cefepime HCl (Maxipime Iv 1 Gm Premix) 1 gm in 50 mls @ 100 mls/hr IVPB Q12H [facility]; Protocol Last Admin: 08/31/18 13:36 Dose: 100 mls/hr Insulin Aspart (Novolog) 0 unit SC Q6 [facility]; Protocol Last Admin: 08/31/18 12:00 Dose: 2 units Insulin Glargine (Lantus) 15 unit SC Q12 [facility] Last Admin: 08/23/18 10:39 Dose: Not Given Lactobacillus Acidophilus (Bacid Acidophilus) 1 cap PEG Q12 [facility] Last Admin: 08/31/18 10:03 Dose: 1 cap Methimazole (Tapazole) 20 mg PO Q8 [facility] Last Admin: 08/31/18 13:37 Dose: 20 mg Multivitamins (Hexavitamin) 1 tab PEG DAILY [facility] Last Admin: 08/31/18 10:02 Dose: 1 tab Pantoprazole Sodium (Protonix Susp) 40 mg GT Q12H [facility] Last Admin: 08/31/18 10:03 Dose: 40 mg [facility] Q[facility]H [facility] Last Admin: 08/31/18 12:00 Dose: 2 drop - Labs Labs: 08/31/18 05:45 08/31/18 05:45 PT 13.7 SECONDS (9.7-12.2) H 08/31/18 05:45 INR 1.3 08/31/18 05:45 APTT 28 SECONDS (21-34) 08/31/18 05:45
[2018-09-01] MEDS: Cefepime IV 1 gm in Dextrose 1 GM/50 ML BAG IVPB SCH ×2 (02:13→14:45)
[2018-09-01] MEDS: Albuterol-Ipratrop 3 mg / 0.5 (3 ml) UD INH SCH ×4 (02:14→20:12)
[2018-09-01] MEDS: Tobramycin 0.3% OPHT SOLN OD SCH ×4 (05:33→23:33)
[2018-09-01] MEDS: (Novolog) Insulin Aspart, Recombinant 100 u/ml 10 ml vial SC SCH ×4 (05:34→17:41)
[2018-09-01 05:44] LABS: BASO # 0.1 K/uL (0.0-0.2); BASO % 0.9 % (0.0-2.0); EOS # 0.2 K/uL (0.0-0.7); EOS % 3.5 % (0.0-4.0); HEMOGLOBIN 8.6 g/dL (11.0-16.0); LYMPH # 1.1 K/uL (1.0-4.3); MEAN CELL VOLUME 88.9 fL (81.0-99.0); MEAN CORPUSCULAR HGB CONC 33.7 g/dL (33.0-37.0); MONO # 0.4 K/uL (0.0-0.8); MONO % 6.5 % (0.0-10.0); NEUT # 4.4 K/uL (1.8-7.0); NEUT % 71.1 % (50.0-75.0); RBC 2.88 Mil/uL (3.80-5.20); RED CELL DISTRIBUTION WIDTH 19.8 % (11.5-14.5); WHITE BLOOD COUNT 6.2 K/uL (4.8-10.8)
[2018-09-01 06:09] LABS: ALB/GLOB RATIO 0.7 (1.0-2.1); ALBUMIN 2.3 g/dL (3.5-5.0); ALT/SGPT 380 U/L (9-52); AST/SGOT 52 U/L (14-36); BLOOD UREA NITROGEN 25 mg/dL (7-17); CALCIUM 7.8 mg/dl (8.6-10.4); GFR NON-AFRICAN AMERICAN > 60
[2018-09-01 06:12] LABS: INR 1.2; PROTHROMBIN TIME 13.1 SECONDS (9.7-12.2)
--- NOTE | 2018-09-01 06:55 | CP.PCM.PN ---
<Tal Alston M - Last Filed: 09/01/18 17:32> Subjective - Date & Time of Evaluation Date of Evaluation: 09/01/18 Time of Evaluation: 07:45 - Subjective Subjective: PGY Medicine Progress Note for Dr. Garcia. Patient seen and examined at bedside. No overnight events reported. Patient lying in bed, currently on mechanical ventilation. Patient is currently seems agitated as she is just moving moving her arms back and forth. Patient is non verbal. Unable to obtain ROS 2/2 to medical condition. Objective - Vital Signs/Intake and Output Vital Signs (last 24 hours): Temp Pulse Resp BP Pulse Ox 97.2 F L 97 H 21 121/62 99 09/01/18 04:00 09/01/18 04:00 09/01/18 04:00 09/01/18 04:00 09/01/18 04:00 Intake and Output: 08/31/18 09/01/18 18:59 06:59 Intake Total 780 630 Output Total 3 2 Balance 777 628 - Medications Medications: Current Medications Albuterol/Ipratropium (Duoneb 3 Mg/0.5 Mg (3 Ml) Ud) 3 ml INH RQ6 [facility] Last Admin: 09/01/18 02:14 Dose: 3 ml Ascorbic Acid (Vitamin C 500 Mg Tab) 1,000 mg NG DAILY [facility] Last Admin: 08/31/18 10:02 Dose: 1,000 mg Bacitracin (Bacitracin) 1 ea TOP BID [facility] Last Admin: 08/31/18 17:57 Dose: 1 ea Dextrose (Dextrose 50% Inj) 0 ml IVP .STAT PRN; Protocol PRN Reason: Hypoglycemia Protocol Dextrose (Glutose 15) 0 gm PO .ONCE PRN; Protocol PRN Reason: Hypoglycemia Protocol Ergocalciferol (Drisdol 50,000 Intl Units Cap) 1 cap GT Q7D [facility] Stop: 10/06/18 19:16 Last Admin: 08/25/18 20:03 Dose: 1 cap Glucagon (Glucagen Diagnostic Kit) 0 mg IM .STAT PRN; Protocol PRN Reason: Hypoglycemia Protocol Cefepime HCl (Maxipime Iv 1 Gm Premix) 1 gm in 50 mls @ 100 mls/hr IVPB Q12H [facility]; Protocol Last Admin: 09/01/18 02:13 Dose: 100 mls/hr Insulin Aspart (Novolog) 0 unit SC Q6 [facility]; Protocol Last Admin: 09/01/18 05:34 Dose: 2 units Insulin Glargine (Lantus) 15 unit SC Q12 [facility] Last Admin: 08/23/18 10:39 Dose: Not Given Lactobacillus Acidophilus (Bacid Acidophilus) 1 cap PEG Q12 [facility] Last Admin: 08/31/18 21:24 Dose: 1 cap Methimazole (Tapazole) 20 mg PO Q8 [facility] Last Admin: 09/01/18 05:34 Dose: 20 mg Multivitamins (Hexavitamin) 1 tab PEG DAILY [facility] Last Admin: 08/31/18 10:02 Dose: 1 tab Pantoprazole Sodium (Protonix Susp) 40 mg GT Q12H [facility] Last Admin: 08/31/18 21:24 Dose: 40 mg Tobramycin Sulfate (Tobrex 0.3% Ophth Soln) 2 drop OD Q6H [facility] Last Admin: 09/01/18 05:33 Dose: 2 drop - Labs Labs: 09/01/18 05:31 09/01/18 05:31 PT 13.1 SECONDS (9.7-12.2) H 09/01/18 05:31 INR 1.2 09/01/18 05:31 APTT 30 SECONDS (21-34) 09/01/18 05:31 - Constitutional Appears: No Acute Distress - Head Exam Head Exam: NORMAL INSPECTION - Eye Exam Additional comments: R pupil sluggish reaction to light slightly smaller than L pupil - ENT Exam ENT Exam: Mucous Membranes Moist - Respiratory Exam Respiratory Exam: NORMAL BREATHING PATTERN. absent: Wheezes Additional comments: trach in place, dressing clean, dry, intact, vent settings 30/5/15/400 - Cardiovascular Exam Cardiovascular Exam: +S1, +S2. absent: Murmur - GI/Abdominal Exam GI & Abdominal Exam: Soft, Normal Bowel Sounds Additional comments: peg tube in place, dressing clean, dry, intact - Back Exam Back Exam: absent: CVA tenderness (L), CVA tenderness (R) - Neurological Exam Neurological Exam: Awake - Skin Skin Exam: Dry, Intact, Normal Color, Warm Assessment and Plan - Assessment and Plan (Free Text) Assessment: This is a 52yo F originally admitted to the ICU for Septic shock 2/2 to PNA/UTI worsened by embolic stroke, cardiac arrest, and anoxic brain injury. Pt is s/p IVC filter. Plan: Agitation - pt seems extremely agitated - possible causes of weaning trial failure - will try low dose of clonazepam 0.5 daily & trazadone 25 mg HS - Will follow LFTs - F/u TSH level in AM Septic Shock Pneumonia Urinary Tract Infection - Pt remains afebrile > 72hrs - Trach Aspirate: Psuedomonas - Bronchoscopy by Dr. Lozada (08/23/18) culture showed Pseudomonas aerguinosa - ID Dr. Brock consulted, recs appreciated - HELD Micafungin due to transaminitis - Cefepime 1g q12 IVPB started 08/27 - 08/27 urine culture no growth > 5 days - 08/27 Blood culture no growth > 5 days - 08/25 stool culture - no growth Vaginal Bleeding - currently non-bleeding, 72hrs - plan for possible endometrial biopsy - H/H stable in 9s/ 26s - Stable - Off anticoag Acute Ischemic Hepatitis - Possibly secondary to hypotension - Downtrending - Avoid hepatotoxic medications - Hep panel is negative - Abd US shows bilateral pleural effusions, patent portal vein, no hydronephrosis, no GB stones or cholecystitis - Abd/pelv CT shows limited evlauation of possible hepatic vein thrombosis without IV contrast administration. Distended urinary bladder, 1.2 cm soft tissue nodule at the left adrenal gland - GI, Dr. London, evaluated the pt and pt's transaminitis is believed to be likely due to hypotension as well - Rapid decrease in LFTs is good prognosis. Anoxic Encephalopathy - s/p code Blue 07/10 and 07/20 - Pt is not at baseline as per - Continue to monitor - Neurology consulted, recs appreciated - Neg CT head w/o contrast, poor visualization Acute Respiratory Failure - s/p tracheostomy 07/24/18 Dr. Lozada will continue to attempt to wean off of vent. Unsuccessful so far. - Duonebs 3ml Inh Q6H - Mucomyst for secretions - CXR with pnuemonia possibly contributing to respiratory failure Ventricular Tachycardia NSTEMI Apical Thrombus LLE DVT - Code Blue 07/10: SVT==>VT required amiodarone, magnesium, one shock delivered - Code Blue 07/20: vtach s/p amiodarone, fluid, calcium gluconate, required compressions and shock - Cardiology Dr Francisco on case help appreciated - No cath needed. - Medical management - No chemical anticoagulation in light of bleeding episodes (patient has dysfunction uterine bleeding required blood transfusions; Ob has been consulted earlier -in the hospitalization to inpatient workup)-->recommending heparin 5000 unit subq8 (DVT ppx dose) and aspirin 81mg PO daily; likely thrombus is organized a -month of anticoagulation; risk is due to bleeding against stroke - d/c Propranolol 5mg PO TID (hold SBP<100 and HR<60) - Eliquis d/c bleeding and anemia-->dvt ppx and aspirin - Echo discussed with Dr. Francisco, patient does have residual clot-->aware we cannot anticoagulate given heavy vaginal bleeding; if patient can tolerate possible - aspirin - Pt noted to be tachycardic at 130, likely secondary to fever. Will give Lopressor 2.5 mg IVP x1 dose. - Restarted Propanolol 1 mg IVP Q6H, (hold SBP<100 and HR<60) Diabetes - HgBA1c: 7.8 - Hypoglycemic protocol - Sugars have ranged from 150-200 x 24 hours - Accuchecks Q4H - off Crestor 5mg PO qHS secondary to LFTs Hyperthyroidism? Low TSH, and Free T4 Thyroid Storm - Note Thyroid studies taken before amiodarone was given (please advised this is not amiodarone induced her levels were abnormal prior) - Patient does not have prior thyroid history - Endocrinology (Dr. Gayle) on board help appreciated - Thyroid U/S 07/16/18: showed heterogenous thydroid with multiple nodules bilaterally. She will need outpatient FNA Bx of the complex Left Lobe cyst (please see full report) - Methimazole 20mg PO TID - off Propranolol 5 mg PO TID due to hypotension - Monitor LFTs Anemia Likely Secondary to Chronic Diseases - Iron normal, TIBC low, Iron Saturation normal, Ferritin normal - Stool occult blood negative - B12 normal - Folate Normal - Transfused 1 unit PRBC 07/22/18, 2 unit of PRBC 08/13/18 1 unit on 08/17/18, 1 unit 08/23/18 - Patient has been seen by OB Hospitalist; no contraindication to anticoagulation - Case discussed with manager embalmer funeral director recommending against eliquis in light of blee ding; recommending for DVT ppx and aspirin Vitamin D deficiency - 50,000 international units once a week (3 doses given so far) - Restart Vitamin D 50,000 IU once a week for 9 weeks (on 08/18/18) LLE DVT - Eliquis 5 mg PO BID d/c 08/17 - s/p IVC filter (08/23/18) Deconditioning - Continue PT/OT - Continue to attempt to wean off of vent Acute on Chronic Renal Failure Resolved - Nephrology (Dr. Hyde) on board--> help appreciated - No indication for HD at this time - Continues to improve Hypernatremia Resolved - 152 today - Discontinue NS IVF PPX - Protonix 40mg IVP BID - Lactobacillus 1 cap PO BID - MVI 1x/day - Vitamin C 1,000 NG 1x/day - s/p Trach and Peg - SCD on Right and contraindicated on Left due to DVT - Peg feedings Continue Pulmocare at 40cc/hr - PICC Line 07/31/18 - bronchoscopy 08/23 - IVC filter 08/23 <Pravin Garcia - Last Filed: 12/07/18 11:57> Objective - Vital Signs/Intake and Output Vital Signs (last 24 hours): Temp Pulse Resp BP Pulse Ox 98.7 F 95 H 20 96/60 L 100 12/07/18 08:00 12/07/18 08:00 12/07/18 08:00 12/07/18 08:00 12/07/18 08:00 Intake and Output: 12/07/18 12/07/18 06:59 18:59 Intake Total 920 Output Total 425 Balance 495 - Medications Medications: Current Medications Albuterol/Ipratropium (Duoneb 3 Mg/0.5 Mg (3 Ml) Ud) 3 ml INH RQ6 PRN PRN Reason: Shortness of Breath Last Admin: 12/06/18 13:20 Dose: 3 ml Aspirin (Aspirin Chewable) 81 mg GT DAILY [facility] Last Admin: 12/07/18 09:55 Dose: 81 mg Dextrose (Dextrose 50% Inj) 0 ml IVP .STAT PRN; Protocol PRN Reason: Hypoglycemia Protocol Dextrose (Glutose 15) 0 gm PO .ONCE PRN; Protocol PRN Reason: Hypoglycemia Protocol Emollient Ointment (Vaseline Oint) 5 gm TOP DAILY [facility] Last Admin: 12/07/18 09:56 Dose: 5 gm Glucagon (Glucagen Diagnostic Kit) 0 mg IM .STAT PRN; Protocol PRN Reason: Hypoglycemia Protocol Methimazole (Tapazole) 10 mg PO Q8 [facility] Last Admin: 12/07/18 05:41 Dose: 10 mg Midodrine (Proamatine) 10 mg PO TID [facility] Last Admin: 12/07/18 09:55 Dose: 10 mg Ondansetron HCl (Zofran Inj) 4 mg IVP DAILY@ONCE PRN PRN Reason: Nausea/Vomiting Last Admin: 11/29/18 17:05 Dose: 4 mg Pantoprazole Sodium (Protonix Susp) 40 mg GT Q12H [facility] Last Admin: 12/07/18 09:55 Dose: 40 mg Simethicone (Mylicon Chew Tab) 80 mg PO QID [facility] Last Admin: 12/07/18 09:55 Dose: 80 mg Sodium Bicarbonate (Sodium Bicarbonate Tab) 650 mg PO BID [facility] Last Admin: 12/07/18 09:55 Dose: 650 mg - Labs Labs: 11/28/18 11:26 11/28/18 11:26 PT 13.3 SECONDS (9.7-12.2) H 10/23/18 06:05 INR 1.2 10/23/18 06:05 APTT 23 SECONDS (21-34) 10/02/18 06:10 Attending/Attestation - Attestation I have personally seen and examined this patient.: Yes I have fully participated in the care of the patient.: Yes I have reviewed all pertinent clinical information, including history, physical exam and plan: Yes Notes (Text): current issues: agitation 1)Septic Shock Pneumonia Urinary Tract Infection 2) Acute Respiratory Failure Pulmonary Edema Bilateral Pleural Effusion and Consolidations Likely Secondary to Aspiration Pneumonia Anoxic Encephalopathy 3) Anoxic Encephalopathy Ventricular Tachycardia NSTEMI Apical Thrombus LLE DVT 4) Urinary Tract Infection 5) Diabetes-->chronic 6) Acute on Chronic Renal Failure 7) Hyperthyroidism? Low TSH, and Free T4 Thyroid Storm 8) Anemia Likely Secondary to Chronic Diseases 9) Transminitis-->improving 10) Vitamin D deficiency 11) Thrombocytopenia-->resolved 12) 13 mm Left Adrenal Nodule 13) Hypernatremia-->resolved 14) LLE DVT 15) Deconditioning
[2018-09-01] MEDS: Multiple Vitamins Tab PEG SCH (09:39)
[2018-09-01] MEDS: Bacitracin 500 Units/gm Oint Foilpak UD TOP SCH ×2 (09:40→17:47)
[2018-09-01] MEDS: Lactobacillus Acidophilus 500 MU Cap PEG SCH ×2 (09:40→23:04)
[2018-09-01] MEDS: Pantoprazole 40 mg Susp UD GT SCH ×2 (09:40→23:03)
[2018-09-01] MEDS: Ergocalciferol 50,000 Intl Units Cap GT SCH (18:57)
[2018-09-01] MEDS ORDERED: traZODone 25 mg Tab PO SCH (22:00)
[2018-09-01] MEDS: traZODone 25 mg Tab GT SCH (23:06)
[2018-09-02] MEDS: Albuterol-Ipratrop 3 mg / 0.5 (3 ml) UD INH SCH ×4 (01:18→20:00)
[2018-09-02] MEDS: Cefepime IV 1 gm in Dextrose 1 GM/50 ML BAG IVPB SCH ×2 (02:12→13:31)
[2018-09-02 05:55] LABS: BASO # 0.1 K/uL (0.0-0.2); BASO % 0.9 % (0.0-2.0); EOS # 0.2 K/uL (0.0-0.7); EOS % 2.8 % (0.0-4.0); HEMOGLOBIN 8.4 g/dL (11.0-16.0); LYMPH # 1.4 K/uL (1.0-4.3); LYMPH % 22.4 % (20.0-40.0); MEAN CELL VOLUME 90.6 fL (81.0-99.0); MEAN CORPUSCULAR HEMOGLOBIN 29.7 pg (27.0-31.0); MEAN CORPUSCULAR HGB CONC 32.8 g/dL (33.0-37.0); MONO # 0.5 K/uL (0.0-0.8); MONO % 7.4 % (0.0-10.0); NEUT # 4.3 K/uL (1.8-7.0); NEUT % 66.5 % (50.0-75.0); RBC 2.83 Mil/uL (3.80-5.20); RED CELL DISTRIBUTION WIDTH 20.7 % (11.5-14.5); WHITE BLOOD COUNT 6.5 K/uL (4.8-10.8)
[2018-09-02] MEDS: (Novolog) Insulin Aspart, Recombinant 100 u/ml 10 ml vial SC SCH ×4 (06:00→18:05)
[2018-09-02 06:05] LABS: INR 1.2; PROTHROMBIN TIME 12.8 SECONDS (9.7-12.2)
[2018-09-02] MEDS: Tobramycin 0.3% OPHT SOLN OD SCH ×3 (06:05→17:04)
[2018-09-02 06:35] LABS: ALB/GLOB RATIO 0.7 (1.0-2.1); ALBUMIN 2.4 g/dL (3.5-5.0); ALT/SGPT 292 U/L (9-52); AST/SGOT 52 U/L (14-36); BLOOD UREA NITROGEN 26 mg/dL (7-17); CALCIUM 7.8 mg/dl (8.6-10.4); GFR NON-AFRICAN AMERICAN > 60
--- NOTE | 2018-09-02 08:10 | CP.PCM.PN ---
<Nydia Reed - Last Filed: 09/02/18 14:49> Subjective - Date & Time of Evaluation Date of Evaluation: 09/02/18 Time of Evaluation: 08:00 - Subjective Subjective: Medicine Progress Note: Patient was seen and examined at bedside in the AM. No overnight events reported. Patient lying in bed, currently on mechanical ventilation. at bedside. Patient is non verbal. Unable to obtain ROS 2/2 to medical condition. Objective - Vital Signs/Intake and Output Vital Signs (last 24 hours): Temp Pulse Resp BP Pulse Ox 98.7 F 75 16 108/53 L 98 09/02/18 04:00 09/02/18 04:00 09/02/18 04:00 09/02/18 04:00 09/02/18 04:00 Intake and Output: 09/02/18 09/02/18 06:59 18:59 Intake Total 730 40 Balance 730 40 - Medications Medications: Current Medications Albuterol/Ipratropium (Duoneb 3 Mg/0.5 Mg (3 Ml) Ud) 3 ml INH RQ6 [facility] Last Admin: 09/02/18 01:18 Dose: 3 ml Ascorbic Acid (Vitamin C 500 Mg Tab) 1,000 mg NG DAILY [facility] Last Admin: 09/01/18 09:39 Dose: 1,000 mg Bacitracin (Bacitracin) 1 ea TOP BID [facility] Last Admin: 09/01/18 17:47 Dose: 1 ea Clonazepam (Klonopin) 0.5 mg GT DAILY [facility] Dextrose (Dextrose 50% Inj) 0 ml IVP .STAT PRN; Protocol PRN Reason: Hypoglycemia Protocol Dextrose (Glutose 15) 0 gm PO .ONCE PRN; Protocol PRN Reason: Hypoglycemia Protocol Ergocalciferol (Drisdol 50,000 Intl Units Cap) 1 cap GT Q7D [facility] Stop: 10/06/18 19:16 Last Admin: 09/01/18 18:57 Dose: 1 cap Glucagon (Glucagen Diagnostic Kit) 0 mg IM .STAT PRN; Protocol PRN Reason: Hypoglycemia Protocol Cefepime HCl (Maxipime Iv 1 Gm Premix) 1 gm in 50 mls @ 100 mls/hr IVPB Q12H [facility]; Protocol Last Admin: 09/02/18 02:12 Dose: 100 mls/hr Insulin Aspart (Novolog) 0 unit SC Q6 [facility]; Protocol Last Admin: 09/02/18 06:00 Dose: Not Given Insulin Glargine (Lantus) 15 unit SC Q12 [facility] Last Admin: 08/23/18 10:39 Dose: Not Given Lactobacillus Acidophilus (Bacid Acidophilus) 1 cap PEG Q12 [facility] Last Admin: 09/01/18 23:04 Dose: 1 cap Methimazole (Tapazole) 20 mg PO Q8 [facility] Last Admin: 09/02/18 06:05 Dose: 20 mg Multivitamins (Hexavitamin) 1 tab PEG DAILY [facility] Last Admin: 09/01/18 09:39 Dose: 1 tab Pantoprazole Sodium (Protonix Susp) 40 mg GT Q12H [facility] Last Admin: 09/01/18 23:03 Dose: 40 mg Tobramycin Sulfate (Tobrex 0.3% Ophth Soln) 2 drop OD Q6H [facility] Last Admin: 09/02/18 06:05 Dose: 2 drop Trazodone HCl (Desyrel) 25 mg GT HS [facility] Last Admin: 09/01/18 23:06 Dose: 25 mg - Labs Labs: 09/02/18 05:48 09/02/18 05:41 PT 12.8 SECONDS (9.7-12.2) H 09/02/18 05:48 INR 1.2 09/02/18 05:48 APTT 29 SECONDS (21-34) 09/02/18 05:48 - Constitutional Appears: No Acute Distress - Head Exam Head Exam: NORMAL INSPECTION - Eye Exam Additional comments: R pupil sluggish reaction to light slightly smaller than L pupil - ENT Exam ENT Exam: Mucous Membranes Moist - Respiratory Exam Additional comments: trach in place, dressing clean, dry, intact - GI/Abdominal Exam Additional comments: peg tube in place, dressing clean, dry, intact Assessment and Plan - Assessment and Plan (Free Text) Assessment: This is a 52yo F originally admitted to the ICU for Septic shock 2/2 to PNA/UTI worsened by embolic stroke, cardiac arrest, and anoxic brain injury. Pt is s/p IVC filter. Plan: Agitation - possible causes of weaning trial failure - will try low dose of clonazepam 0.5 daily & trazadone 25 mg HS - AST/ALT: 52/292 (down trending) - TSH level: 1.26 (WNL) Septic Shock Pneumonia Urinary Tract Infection - Pt remains afebrile > 72hrs - Trach Aspirate: Psuedomonas - Bronchoscopy by Dr. Lozada (08/23/18) culture showed Pseudomonas aerguinosa - ID Dr. Brock consulted, recs appreciated - HELD Micafungin due to transaminitis - Cefepime 1g q12 IVPB started 08/27 - 08/27 urine culture no growth > 5 days - 08/27 Blood culture no growth > 5 days - 08/25 stool culture - no growth Vaginal Bleeding - currently non-bleeding, 72hrs - plan for possible endometrial biopsy - H/H stable in 9s/ 26s - Stable - Off anticoag Acute Ischemic Hepatitis - Possibly secondary to hypotension - Downtrending - Avoid hepatotoxic medications - Hep panel is negative - Abd US shows bilateral pleural effusions, patent portal vein, no hydronephrosis, no GB stones or cholecystitis - Abd/pelv CT shows limited evlauation of possible hepatic vein thrombosis without IV contrast administration. Distended urinary bladder, 1.2 cm soft tissue nodule at the left adrenal gland - GI, Dr. London, evaluated the pt and pt's transaminitis is believed to be likely due to hypotension as well - Rapid decrease in LFTs is good prognosis. Anoxic Encephalopathy - s/p code Blue 07/10 and 07/20 - Pt is not at baseline as per - Continue to monitor - Neurology consulted, recs appreciated - Neg CT head w/o contrast, poor visualization Acute Respiratory Failure - s/p tracheostomy 07/24/18 Dr. Lozada will continue to attempt to wean off of vent. Unsuccessful so far. - Duonebs 3ml Inh Q6H - Mucomyst for secretions - CXR with pnuemonia possibly contributing to respiratory failure Ventricular Tachycardia NSTEMI Apical Thrombus LLE DVT - Code Blue 07/10: SVT==>VT required amiodarone, magnesium, one shock delivered - Code Blue 07/20: vtach s/p amiodarone, fluid, calcium gluconate, required compressions and shock - Cardiology Dr Francisco on case help appreciated - No cath needed. - Medical management - No chemical anticoagulation in light of bleeding episodes (patient has dysfunction uterine bleeding required blood transfusions; Ob has been consulted earlier -in the hospitalization to inpatient workup)-->recommending heparin 5000 unit subq8 (DVT ppx dose) and aspirin 81mg PO daily; likely thrombus is organize d a -month of anticoagulation; risk is due to bleeding against stroke - d/c Propranolol 5mg PO TID (hold SBP<100 and HR<60) - Eliquis d/c bleeding and anemia-->dvt ppx and aspirin - Echo discussed with Dr. Francisco, patient does have residual clot-->aware we cannot anticoagulate given heavy vaginal bleeding; if patient can tolerate possible - aspirin - Pt noted to be tachycardic at 130, likely secondary to fever. Will give Lopressor 2.5 mg IVP x1 dose. - Restarted Propanolol 1 mg IVP Q6H, (hold SBP<100 and HR<60) Diabetes - HgBA1c: 7.8 - Hypoglycemic protocol - Sugars have ranged from 150-200 x 24 hours - Accuchecks Q4H - off Crestor 5mg PO qHS secondary to LFTs Hyperthyroidism? Low TSH, and Free T4 Thyroid Storm - Note Thyroid studies taken before amiodarone was given (please advised this is not amiodarone induced her levels were abnormal prior) - Patient does not have prior thyroid history - Endocrinology (Dr. Gayle) on board help appreciated - Thyroid U/S 07/16/18: showed heterogenous thydroid with multiple nodules bilaterally. She will need outpatient FNA Bx of the complex Left Lobe cyst (please see full report) - Methimazole 20mg PO TID - off Propranolol 5 mg PO TID due to hypotension - Monitor LFTs Anemia Likely Secondary to Chronic Diseases - Iron normal, TIBC low, Iron Saturation normal, Ferritin normal - Stool occult blood negative - B12 normal - Folate Normal - Transfused 1 unit PRBC 07/22/18, 2 unit of PRBC 08/13/18 1 unit on 08/17/18, 1 unit 08/23/18 - Patient has been seen by OB Hospitalist; no contraindication to anticoagulation - Case discussed with smasher hand recommending against eliquis in light of bleeding; recommending for DVT ppx and aspirin Vitamin D deficiency - 50,000 international units once a week (3 doses given so far) - Restart Vitamin D 50,000 IU once a week for 9 weeks (on 08/18/18) LLE DVT - Eliquis 5 mg PO BID d/c 08/17 - s/p IVC filter (08/23/18) Deconditioning - Continue PT/OT - Continue to attempt to wean off of vent Acute on Chronic Renal Failure Resolved - Nephrology (Dr. Hyde) on board--> help appreciated - No indication for HD at this time - Continues to improve Hypernatremia Resolved - 152 today - Discontinue NS IVF PPX - Protonix 40mg IVP BID - Lactobacillus 1 cap PO BID - MVI 1x/day - Vitamin C 1,000 NG 1x/day - s/p Trach and Peg - SCD on Right and contraindicated on Left due to DVT - Peg feedings Continue Pulmocare at 40cc/hr - PICC Line 07/31/18 - bronchoscopy 08/23 - IVC filter 08/23 <Don Zamudio - Last Filed: 09/02/18 16:38> Objective - Vital Signs/Intake and Output Vital Signs (last 24 hours): Temp Pulse Resp BP Pulse Ox 97.2 F L 80 17 111/65 100 09/02/18 16:00 09/02/18 16:00 09/02/18 16:00 09/02/18 16:00 09/02/18 16:00 Intake and Output: 09/02/18 09/02/18 06:59 18:59 Intake Total 730 700 Balance 730 700 - Medications Medications: Current Medications Albuterol/Ipratropium (Duoneb 3 Mg/0.5 Mg (3 Ml) Ud) 3 ml INH RQ6 [facility] Last Admin: 09/02/18 14:22 Dose: 3 ml Ascorbic Acid (Vitamin C 500 Mg Tab) 1,000 mg NG DAILY [facility] Last Admin: 09/02/18 10:38 Dose: 1,000 mg Bacitracin (Bacitracin) 1 ea TOP BID [facility] Last Admin: 09/02/18 10:38 Dose: 1 ea Clonazepam (Klonopin) 0.5 mg GT DAILY [facility] Last Admin: 09/02/18 10:38 Dose: 0.5 mg Dextrose (Dextrose 50% Inj) 0 ml IVP .STAT PRN; Protocol PRN Reason: Hypoglycemia Protocol Dextrose (Glutose 15) 0 gm PO .ONCE PRN; Protocol PRN Reason: Hypoglycemia Protocol Ergocalciferol (Drisdol 50,000 Intl Units Cap) 1 cap GT Q7D [facility] Stop: 10/06/18 19:16 Last Admin: 09/01/18 18:57 Dose: 1 cap Glucagon (Glucagen Diagnostic Kit) 0 mg IM .STAT PRN; Protocol PRN Reason: Hypoglycemia Protocol Cefepime HCl (Maxipime Iv 1 Gm Premix) 1 gm in 50 mls @ 100 mls/hr IVPB Q12H [facility]; Protocol Last Admin: 09/02/18 13:31 Dose: 100 mls/hr Insulin Aspart (Novolog) 0 unit SC Q6 [facility]; Protocol Last Admin: 09/02/18 12:00 Dose: Not Given Insulin Glargine (Lantus) 15 unit SC Q12 [facility] Last Admin: 08/23/18 10:39 Dose: Not Given Lactobacillus Acidophilus (Bacid Acidophilus) 1 cap PEG Q12 [facility] Last Admin: 09/02/18 10:39 Dose: 1 cap Methimazole (Tapazole) 20 mg PO Q8 [facility] Last Admin: 09/02/18 13:28 Dose: 20 mg Multivitamins (Hexavitamin) 1 tab PEG DAILY [facility] Last Admin: 09/02/18 10:38 Dose: 1 tab Pantoprazole Sodium (Protonix Susp) 40 mg GT Q12H [facility] Last Admin: 09/02/18 10:37 Dose: 40 mg Tobramycin Sulfate (Tobrex 0.3% [facility]) 2 drop OD Q6H [facility] Last Admin: 09/02/18 13:27 Dose: 2 drop Trazodone HCl (Desyrel) 25 mg GT HS [facility] Last Admin: 09/01/18 23:06 Dose: 25 mg - Labs Labs: 09/02/18 05:48 09/02/18 05:41 PT 12.8 SECONDS (9.7-12.2) H 09/02/18 05:48 INR 1.2 09/02/18 05:48 APTT 29 SECONDS (21-34) 09/02/18 05:48 Attending/Attestation - Attestation I have personally seen and examined this patient.: Yes I have fully participated in the care of the patient.: Yes I have reviewed all pertinent clinical information, including history, physical exam and plan: Yes Notes (Text): Seen and examined this morning Discussed with her at beds side this afternoon no changes continue current meds d/w qc chemist and the plan discussed with the resident and I agree with the documentation 12/01/18 16:37
[2018-09-02] MEDS: Pantoprazole 40 mg Susp UD GT SCH ×2 (10:37→21:13)
[2018-09-02] MEDS: Bacitracin 500 Units/gm Oint Foilpak UD TOP SCH ×2 (10:38→17:04)
[2018-09-02] MEDS: Multiple Vitamins Tab PEG SCH (10:38)
[2018-09-02] MEDS: Lactobacillus Acidophilus 500 MU Cap PEG SCH ×2 (10:39→21:13)
[2018-09-02] MEDS: traZODone 25 mg Tab GT SCH (21:12)
[2018-09-03] MEDS: Tobramycin 0.3% OPHT SOLN OD SCH ×5 (00:11→23:48)
[2018-09-03] MEDS: Cefepime IV 1 gm in Dextrose 1 GM/50 ML BAG IVPB SCH ×2 (01:48→13:42)
[2018-09-03] MEDS: Albuterol-Ipratrop 3 mg / 0.5 (3 ml) UD INH SCH ×4 (02:24→19:43)
[2018-09-03 06:13] LABS: BASO # 0.1 K/uL (0.0-0.2); EOS # 0.2 K/uL (0.0-0.7); EOS % 3.2 % (0.0-4.0); HEMOGLOBIN 8.7 g/dL (11.0-16.0); LYMPH # 1.3 K/uL (1.0-4.3); LYMPH % 24.2 % (20.0-40.0); MEAN CELL VOLUME 88.9 fL (81.0-99.0); MEAN CORPUSCULAR HEMOGLOBIN 30.1 pg (27.0-31.0); MEAN CORPUSCULAR HGB CONC 33.9 g/dL (33.0-37.0); MEAN PLATELET VOLUME 9.4 fL (7.2-11.7); MONO # 0.4 K/uL (0.0-0.8); MONO % 6.8 % (0.0-10.0); NEUT # 3.6 K/uL (1.8-7.0); NEUT % 64.8 % (50.0-75.0); RBC 2.91 Mil/uL (3.80-5.20); RED CELL DISTRIBUTION WIDTH 20.2 % (11.5-14.5); WHITE BLOOD COUNT 5.6 K/uL (4.8-10.8)
[2018-09-03] MEDS: (Novolog) Insulin Aspart, Recombinant 100 u/ml 10 ml vial SC SCH ×4 (06:14→18:15)
[2018-09-03 06:33] LABS: ALB/GLOB RATIO 0.7 (1.0-2.1); ALBUMIN 2.6 g/dL (3.5-5.0); ALT/SGPT 258 U/L (9-52); AST/SGOT 53 U/L (14-36); BLOOD UREA NITROGEN 27 mg/dL (7-17); CALCIUM 8.1 mg/dl (8.6-10.4); GFR NON-AFRICAN AMERICAN > 60
--- NOTE | 2018-09-03 08:07 | CP.PCM.PN ---
<Nydia Reed - Last Filed: 09/03/18 13:22> Subjective - Date & Time of Evaluation Date of Evaluation: 09/03/18 Time of Evaluation: 08:00 - Subjective Subjective: Medicine Progress Note: Patient was seen and examined at bedside in the AM. No overnight events reported. Patient lying in chair, currently on mechanical ventilation. Patient is non verbal. Unable to obtain ROS 2/2 to medical condition. Objective - Vital Signs/Intake and Output Vital Signs (last 24 hours): Temp Pulse Resp BP Pulse Ox 98 F 88 18 132/62 98 09/03/18 04:00 09/03/18 04:00 09/03/18 04:00 09/03/18 00:00 09/03/18 04:00 Intake and Output: 09/03/18 09/03/18 06:59 18:59 Intake Total 630 100 Output Total 1 Balance 629 100 - Medications Medications: Current Medications Albuterol/Ipratropium (Duoneb 3 Mg/0.5 Mg (3 Ml) Ud) 3 ml INH RQ6 [facility] Last Admin: 09/03/18 08:01 Dose: 3 ml Ascorbic Acid (Vitamin C 500 Mg Tab) 1,000 mg NG DAILY [facility] Last Admin: 09/02/18 10:38 Dose: 1,000 mg Bacitracin (Bacitracin) 1 ea TOP BID [facility] Last Admin: 09/02/18 17:04 Dose: 1 ea Clonazepam (Klonopin) 0.5 mg GT DAILY [facility] Last Admin: 09/02/18 10:38 Dose: 0.5 mg Dextrose (Dextrose 50% Inj) 0 ml IVP .STAT PRN; Protocol PRN Reason: Hypoglycemia Protocol Dextrose (Glutose 15) 0 gm PO .ONCE PRN; Protocol PRN Reason: Hypoglycemia Protocol Ergocalciferol (Drisdol 50,000 Intl Units Cap) 1 cap GT Q7D [facility] Stop: 10/06/18 19:16 Last Admin: 09/01/18 18:57 Dose: 1 cap Glucagon (Glucagen Diagnostic Kit) 0 mg IM .STAT PRN; Protocol PRN Reason: Hypoglycemia Protocol Cefepime HCl (Maxipime Iv 1 Gm Premix) 1 gm in 50 mls @ 100 mls/hr IVPB Q12H [facility]; Protocol Last Admin: 09/03/18 01:48 Dose: 100 mls/hr Insulin Aspart (Novolog) 0 unit SC Q6 [facility]; Protocol Last Admin: 09/03/18 06:14 Dose: Not Given Insulin Glargine (Lantus) 15 unit SC Q12 [facility] Last Admin: 08/23/18 10:39 Dose: Not Given Lactobacillus Acidophilus (Bacid Acidophilus) 1 cap PEG Q12 [facility] Last Admin: 09/02/18 21:13 Dose: 1 cap Methimazole (Tapazole) 20 mg PO Q8 [facility] Last Admin: 09/03/18 06:13 Dose: 20 mg Multivitamins (Hexavitamin) 1 tab PEG DAILY [facility] Last Admin: 09/02/18 10:38 Dose: 1 tab Pantoprazole Sodium (Protonix Susp) 40 mg GT Q12H [facility] Last Admin: 09/02/18 21:13 Dose: 40 mg Tobramycin Sulfate (Tobrex 0.3% Ophth Soln) 2 drop OD Q6H [facility] Last Admin: 09/03/18 06:13 Dose: 2 drop Trazodone HCl (Desyrel) 25 mg GT HS [facility] Last Admin: 09/02/18 21:12 Dose: 25 mg - Labs Labs: 09/03/18 06:03 09/03/18 06:03 PT 12.8 SECONDS (9.7-12.2) H 09/02/18 05:48 INR 1.2 09/02/18 05:48 APTT 29 SECONDS (21-34) 09/02/18 05:48 - Constitutional Appears: Chronically Ill - Head Exam Head Exam: NORMAL INSPECTION - Eye Exam Additional comments: R pupil sluggish reaction to light slightly smaller than L pupil - Respiratory Exam Additional comments: trach in place, dressing clean, dry, intact - GI/Abdominal Exam Additional comments: peg tube in place, dressing clean, dry, intact Assessment and Plan - Assessment and Plan (Free Text) Assessment: This is a 52yo F originally admitted to the ICU for Septic shock 2/2 to PNA/UTI worsened by embolic stroke, cardiac arrest, and anoxic brain injury. Pt is s/p IVC filter. Plan: Agitation - possible causes of weaning trial failure - will try low dose of clonazepam 0.5 daily & trazadone 25 mg HS - AST/ALT: 52/292 (down trending) - TSH level: 1.26 (WNL) Septic Shock Pneumonia Urinary Tract Infection - Pt remains afebrile > 72hrs - Trach Aspirate: Psuedomonas - Bronchoscopy by Dr. Maciel (08/23/18) culture showed Pseudomonas aerguinosa - ID Dr. Brock consulted, recs appreciated - HELD Micafungin due to transaminitis - Cefepime 1g q12 IVPB started 08/27 - 08/27 urine culture no growth > 5 days - 08/27 Blood culture no growth > 5 days - 08/25 stool culture - no growth Vaginal Bleeding - currently non-bleeding, 72hrs - plan for possible endometrial biopsy - H/H stable in 9s/ 26s - Stable - Off anticoag Acute Ischemic Hepatitis - Possibly secondary to hypotension - Downtrending - Avoid hepatotoxic medications - Hep panel is negative - Abd US shows bilateral pleural effusions, patent portal vein, no hydronephrosis, no GB stones or cholecystitis - Abd/pelv CT shows limited evlauation of possible hepatic vein thrombosis without IV contrast administration. Distended urinary bladder, 1.2 cm soft tissue nodule at the left adrenal gland - GI, Dr. London, evaluated the pt and pt's transaminitis is believed to be likel y due to hypotension as well - Rapid decrease in LFTs is good prognosis. Anoxic Encephalopathy - s/p code Blue 07/10 and 07/20 - Pt is not at baseline as per - Continue to monitor - Neurology consulted, recs appreciated - Neg CT head w/o contrast, poor visualization Acute Respiratory Failure - s/p tracheostomy 07/24/18 Dr. Maciel will continue to attempt to wean off of vent. Unsuccessful so far. - Duonebs 3ml Inh Q6H - Mucomyst for secretions - CXR with pnuemonia possibly contributing to respiratory failure Ventricular Tachycardia NSTEMI Apical Thrombus LLE DVT - Code Blue 07/10: SVT==>VT required amiodarone, magnesium, one shock delivered - Code Blue 07/20: vtach s/p amiodarone, fluid, calcium gluconate, required compressions and shock - Cardiology Dr Francisco on case help appreciated - No cath needed. - Medical management - No chemical anticoagulation in light of bleeding episodes (patient has dysfunction uterine bleeding required blood transfusions; Ob has been consulted earlier -in the hospitalization to inpatient workup)-->recommending heparin 5000 unit subq8 (DVT ppx dose) and aspirin 81mg PO daily; likely thrombus is organized a -month of anticoagulation; risk is due to bleeding against stroke - d/c Propranolol 5mg PO TID (hold SBP<100 and HR<60) - Eliquis d/c bleeding and anemia-->dvt ppx and aspirin - Echo discussed with Dr. Francisco, patient does have residual clot-->aware we cannot anticoagulate given heavy vaginal bleeding; if patient can tolerate possible - aspirin - Pt noted to be tachycardic at 130, likely secondary to fever. Will give Lopressor 2.5 mg IVP x1 dose. - Restarted Propanolol 1 mg IVP Q6H, (hold SBP<100 and HR<60) Diabetes - HgBA1c: 7.8 - Hypoglycemic protocol - Sugars have ranged from 150-200 x 24 hours - Accuchecks Q4H - off Crestor 5mg PO qHS secondary to LFTs Hyperthyroidism? Low TSH, and Free T4 Thyroid Storm - Note Thyroid studies taken before amiodarone was given (please advised this is not amiodarone induced her levels were abnormal prior) - Patient does not have prior thyroid history - Endocrinology (Dr. Gayle) on board help appreciated - Thyroid U/S 07/16/18: showed heterogenous thydroid with multiple nodules bilaterally. She will need outpatient FNA Bx of the complex Left Lobe cyst (please see full report) - Methimazole 20mg PO TID - off Propranolol 5 mg PO TID due to hypotension - Monitor LFTs Anemia Likely Secondary to Chronic Diseases - Iron normal, TIBC low, Iron Saturation normal, Ferritin normal - Stool occult blood negative - B12 normal - Folate Normal - Transfused 1 unit PRBC 07/22/18, 2 unit of PRBC 08/13/18 1 unit on 08/17/18, 1 unit 08/23/18 - Patient has been seen by OB Hospitalist; no contraindication to anticoagulation - Case discussed with chemist organic recommending against eliquis in light of bleeding; recommending for DVT ppx and aspirin Vitamin D deficiency - 50,000 international units once a week (3 doses given so far) - Restart Vitamin D 50,000 IU once a week for 9 weeks (on 08/18/18) LLE DVT - Eliquis 5 mg PO BID d/c 08/17 - s/p IVC filter (08/23/18) Deconditioning - Continue PT/OT - Continue to attempt to wean off of vent Acute on Chronic Renal Failure Resolved - Nephrology (Dr. Hyde) on board--> help appreciated - No indication for HD at this time - Continues to improve Hypernatremia Resolved - 152 today - Discontinue NS IVF PPX - Protonix 40mg IVP BID - Lactobacillus 1 cap PO BID - MVI 1x/day - Vitamin C 1,000 NG 1x/day - s/p Trach and Peg - SCD on Right and contraindicated on Left due to DVT - Peg feedings Continue Pulmocare at 40cc/hr - PICC Line 07/31/18 - bronchoscopy 08/23 - IVC filter 08/23 <Saira Leahy V - Last Filed: 09/03/18 14:36> Objective - Vital Signs/Intake and Output Vital Signs (last 24 hours): Temp Pulse Resp BP Pulse Ox 98.2 F 75 15 105/46 L 99 09/03/18 12:00 09/03/18 12:00 09/03/18 12:00 09/03/18 12:00 09/03/18 12:00 Intake and Output: 09/03/18 09/03/18 06:59 18:59 Intake Total 630 490 Output Total 1 Balance 629 490 - Medications Medications: Current Medications Albuterol/Ipratropium (Duoneb 3 Mg/0.5 Mg (3 Ml) Ud) 3 ml INH RQ6 [facility] Last Admin: 09/03/18 13:27 Dose: 3 ml Ascorbic Acid (Vitamin C 500 Mg Tab) 1,000 mg NG DAILY [facility] Last Admin: 09/03/18 09:25 Dose: 1,000 mg Bacitracin (Bacitracin) 1 ea TOP BID [facility] Last Admin: 09/03/18 09:26 Dose: 1 ea Clonazepam (Klonopin) 0.5 mg GT DAILY [facility] Last Admin: 09/03/18 09:26 Dose: 0.5 mg Dextrose (Dextrose 50% Inj) 0 ml IVP .STAT PRN; Protocol PRN Reason: Hypoglycemia Protocol Dextrose (Glutose 15) 0 gm PO .ONCE PRN; Protocol PRN Reason: Hypoglycemia Protocol Ergocalciferol (Drisdol 50,000 Intl Units Cap) 1 cap GT Q7D [facility] Stop: 10/06/18 19:16 Last Admin: 09/01/18 18:57 Dose: 1 cap Glucagon (Glucagen Diagnostic Kit) 0 mg IM .STAT PRN; Protocol PRN Reason: Hypoglycemia Protocol Cefepime HCl (Maxipime Iv 1 Gm Premix) 1 gm in 50 mls @ 100 mls/hr IVPB Q12H [facility]; Protocol Last Admin: 09/03/18 13:42 Dose: 100 mls/hr Insulin Aspart (Novolog) 0 unit SC Q6 [facility]; Protocol Last Admin: 09/03/18 12:00 Dose: Not Given Insulin Glargine (Lantus) 15 unit SC Q12 [facility] Last Admin: 08/23/18 10:39 Dose: Not Given Lactobacillus Acidophilus (Bacid Acidophilus) 1 cap PEG Q12 [facility] Last Admin: 09/03/18 09:26 Dose: 1 cap Methimazole (Tapazole) 20 mg PO Q8 [facility] Last Admin: 09/03/18 13:42 Dose: 20 mg Multivitamins (Hexavitamin) 1 tab PEG DAILY [facility] Last Admin: 09/03/18 09:26 Dose: 1 tab Pantoprazole Sodium (Protonix Susp) 40 mg GT Q12H [facility] Last Admin: 09/03/18 09:26 Dose: 40 mg Tobramycin Sulfate (Tobrex 0.3% [facility]) 2 drop OD Q6H [facility] Last Admin: 09/03/18 11:36 Dose: 2 drop Trazodone HCl (Desyrel) 25 mg GT HS [facility] Last Admin: 09/02/18 21:12 Dose: 25 mg - Labs Labs: 09/03/18 06:03 09/03/18 06:03 PT 12.8 SECONDS (9.7-12.2) H 09/02/18 05:48 INR 1.2 09/02/18 05:48 APTT 29 SECONDS (21-34) 09/02/18 05:48 Assessment and Plan (1) Septic shock Status: Acute (2) Acute respiratory failure Status: Acute (3) Urinary tract infection Status: Acute (4) Acute renal failure Status: Acute (5) Aspiration pneumonia Status: Acute (6) Diabetes mellitus Status: Chronic (7) Ventricular arrhythmia Status: Acute (8) Hyperthyroidism Status: Acute (9) Anemia Status: Acute (10) Prophylactic measure Status: Acute Attending/Attestation - Attestation I have personally seen and examined this patient.: Yes I have fully participated in the care of the patient.: Yes I have reviewed all pertinent clinical information, including history, physical exam and plan: Yes Notes (Text): 1) Septic Shock secondary to Pneumonia and Urinary Tract Infection New Pneumonia-->pseudomonas Assessment/Plan * Infectious Disease (Dr. Brock) on board-->help appreciated * Meropenem d/c 08/27 * Start Maxipime 1gm [id number] (active since 08/27/18) * Trach Aspirate: Psuedomonas * s/p bronchoscopy (08/23/18) * Pseudomonas aerguinosa * dictated by dr maciel * 08/23: Bronchial Washings: pseudomonas Aeruginosa * 08/23: Fungal Culture: Prelim: negative * 08/23: Mycobacterial culture: prelim * Recent culture: * 08/25/18 Blood culture: no growth 5 days X 2 * 08/23/18 Blood culture: no growth after 5 days X 2 * 08/27/18 Blood culture: no growth after 5 days * 08/27/18 UA and Urine Culture: no growth * Salmonella, shigella, or campylobacteria: not detected. * Ova and parasite: not detected * Chest xray (08/27/18): bilateral perihilar opacity with congestive change. Possible pulmonary edema * Chest xray (08/28/18); increasing bibasilar ill-defined opacity. pulmonary edema versus b/l pneumonia * Repeat Chest xray tomorrow * Procalcitonin: 2.89 (08/28)-->repeat tomorrow 2) Shock Liver; Transminitis Assessment/Plan * GI has signed off * Hepatitis serology negative * Ammonia: normal * elevated INR--> vitamin K 08/24 * 08/24: off statin, benadryl, benzo, ambien, and micafungin (gave dose of 08/23 ) * Continue to monitor LFTs; suspected medication induced or related to low blood pressure * Gi (Dr. Murray) * discussed case with fellow 08/26/18 * Abd US shows bilateral pleural effusions, patent portal vein, no hydronephrosis, no GB stones or cholecystitis * CT Abdomen/pelvis (08/25/18): limited evaluated evaluation hepatic vein thrombosis. heterogenous attenuation of the liver. 3) Anoxic Encephalopathy Assessment/Plan * Code Blue 07/10 and 07/20 * Patient prior knowledge of 5 languages per but does not follow commands * CT head: no acute intracranial pathology. Age-related changes. no significant interval change. * suspect decline since second code blue * unable to get brain mri since she remains connected to vent via trach and has failed trials * Klonopin 0.5mg GT daily for behavioral distiburance 4) Acute Respiratory Failure Pulmonary Edema Pseudomona Pneumonia s/p Trach Assessment/Plan * Patient underwent tracheostomy 07/24/18 and s/p bronchoscopy 08/23 * Patient had tolerated trach collars last weekend thru Tuesday 08/14; however she has been on vent to trach. Patient has been unable to be weaned off vent. * Pulmonary (Dr. Maciel) on board-->assisting with weaning from trach on vent to trach collar * Duonebs 3ml Inh Q6H * s/p bronchoscopy (08/23/18) * Pseudomonas aerguinosa * dictated by dr maciel * 08/23: Bronchial Washings: pseudomonas Aeruginosa * 08/23: Fungal Culture: Prelim: negative * 08/23: Mycobacterial culture: prelim * Chest physiotherapy * Order for chest xray tomorrow 4) Ventricular Tachycardia NSTEMI Apical Thrombus LLE DVT s/p IVC filter Assessment/Plan * Code Blue 07/10: SVT==>VT required amiodarone, magnesium, one shock delivered * Code Blue 07/20: vtach s/p amiodarone, fluid, calcium gluconate, required compressions and shock * S/p IVC filter 08/23/18 * Cardiology Dr Francisco on case help appreciated * No cath needed. * Medical management * No chemical anticoagulation in light of bleeding episodes (patient has dysfunction uterine bleeding required blood transfusions; Ob has been consulted earlier in the hospitalization to inpatient workup)-->recommending heparin 5000 unit subq8 (DVT ppx dose) and aspirin 81mg PO daily; likely thrombus is organized a month of anticoagulation; risk is due to bleeding against stroke * d/c Propranolol 5mg PO TID (hold SBP<100 and HR<60) * Eliquis d/c bleeding and anemia-->dvt ppx and aspirin * Echo discussed with Dr. Francisco, patient does have residual clot-->aware we cannot anticoagulate given heavy vaginal bleeding; if patient can tolerate possible aspirin 4) VRE Urinary Tract Infection (resolved) Assessment/Plan * OFF Contact isolation 5) Diabetes-->chronic Assessment/Plan * HgBA1c: 7.8 * Hypoglycemic protocol * held Lantus 15 units subcutaneous at bedtime Q12 since 08/23/18 * Hypoglycemic 08/23/18 AM * Accuchecks Q4H * off Crestor 5mg POqHS secondary to LFTs 6) Acute on Chronic Renal Failure (resolved) Assessment/Plan * Nephrology (Dr. Hyde) on board--> help appreciated-->has signed off 7) Hyperthyroidism? Low TSH, and Free T4 Thyroid Storm Assessment/Plan * Note Thyroid studies taken before amiodarone was given (please advised this is not amiodarone induced her levels were abnormal prior) * Patient does not have prior thyroid history * Endocrinology (Dr. Gayle) on board help appreciated * Thyroid U/S 07/16/18: showed heterogenous thyroid with multiple nodules bilaterally. She will need outpatient FNA Bx of the complex Left Lobe cyst (please see full report) * Methimazole 20mg PO TID * off Propranolol 5 mg PO TID due to hypotension * Monitor LFTs 8) Anemia Likely Secondary to Chronic Diseases Dysfunctional uterine bleeding Assessment/Plan * Iron normal, TIBC low, Iron Saturation normal, Ferritin normal * Stool occult blood negative * B12 normal * Folate Normal * Transfused 1 unit PRBC 07/22/18, 2 unit of PRBC 08/13/18 1 unit on 08/17/18, 1 unit 08/23/18 * Patient has been seen by OB Hospitalist; no contraindication to anticoagulation * recommend outpatient workup for vaginal bleeding * Case discussed with chemist organic recommending against eliquis in light of bleeding; recommending for DVT ppx and aspirin if patient can tolerate it 9) Vitamin D deficiency Assessment plan * 50,000 international units once a week (3 doses given so far) * Restart Vitamin D 50,000 IU once a week for 9 weeks (on 08/18/18) 10) Thrombocytopenia-->resolved Assessment plan * HIT/RUSTY were negative 11) 13 mm Left Adrenal Nodule * As seen on CT Chest 07/16/[address] abdomen/pelvis * Will need outpatient follow up for cross sectional imaging for better characterization 12) Hypernatremia (resolved) * Start free fluid washes 250ml Q6 via tube feeds 13) LLE DVT s/p IVC filter * Eliquis 5 mg PO BID d/c 08/17 * Acute thrombosis of the left common femoral and femoral veins with severe reduction of the venous return on 07/18/18 venous doppler * Patient had completed one month on Eliquis; however she continues to have dysfunction uterine bleeding; cardiology is recommending against eliquis for thrombus given bleeding risk * repeat doppler to see if DVT has resolved by ultrasound repeat * s/p IVC filter (08/23/18) 14) Deconditioning * Patient needs continued PT/OT * I did speak with Dr. Pham 08/18 in regards to reset patient's sleep wake cycle--> her pattern tends to be she is agitated at night when her is not present (her reliable social cue) receives benzo/haldol/seroquel and becomes very lethargic in the morning which presents rehab from working with her.Ambien currently helps her to sleep at Note Patient is connected to vent. She is unable to get off vent keeps failing trial. Patient was last on trach collar on 08/12. She is unable to get the MRI because the vent does not fit in the MRI. * Respiratory attempting to wean but remains on vent * 08/24: off ambien/benadryl secondary to elevated LFTs * Patient unable to get LTAC given lack of insurance 15) Prophylactic measure * Protonix 40mg GT BID * Lactobacillus 1 cap PO BID * MVI 1x/day * Vitamin C 1,000 NG 1x/day * s/p Trach and Peg * SCD on Right and contraindicated on Left due to DVT * Peg feedings * Pulmcar 40cc/hr * patient had frequent BMs on prior formula; no diarrhea; we have spoken with dietary to change it on 08/19/18 * PICC Line 07/31/18 * Note: speak to patient in a[place] to assess neurologic status-->she does follow sometimes * s/p bronchoscopy 08/23 * s/p IVC filter 08/23 * patient is FULL CODE * Social work note (08/09/18): patient is undocumented, has not health insurance, dc planning will be at home with Disposition: * f/u chest xray in AM * F/u procalcitonin in AM * prognosis is guarded * Full code.
[2018-09-03] MEDS: Multiple Vitamins Tab PEG SCH (09:26)
[2018-09-03] MEDS: Lactobacillus Acidophilus 500 MU Cap PEG SCH ×2 (09:26→21:02)
[2018-09-03] MEDS: Bacitracin 500 Units/gm Oint Foilpak UD TOP SCH ×2 (09:26→17:03)
[2018-09-03] MEDS: Pantoprazole 40 mg Susp UD GT SCH ×2 (09:26→21:02)
[2018-09-03] MEDS: traZODone 25 mg Tab GT SCH (21:02)
[2018-09-04] MEDS: (Novolog) Insulin Aspart, Recombinant 100 u/ml 10 ml vial SC SCH ×5 (00:18→23:47)
[2018-09-04] MEDS: Albuterol-Ipratrop 3 mg / 0.5 (3 ml) UD INH SCH ×5 (01:06→19:03)
[2018-09-04] MEDS: Cefepime IV 1 gm in Dextrose 1 GM/50 ML BAG IVPB SCH ×2 (01:31→14:43)
[2018-09-04] MEDS: Tobramycin 0.3% OPHT SOLN OD SCH ×4 (05:36→23:40)
[2018-09-04 06:33] LABS: BASO # 0.1 K/uL (0.0-0.2); BASO % 0.8 % (0.0-2.0); EOS # 0.2 K/uL (0.0-0.7); EOS % 2.6 % (0.0-4.0); HEMOGLOBIN 9.2 g/dL (11.0-16.0); LYMPH # 2.4 K/uL (1.0-4.3); LYMPH % 31.9 % (20.0-40.0); MEAN CELL VOLUME 89.6 fL (81.0-99.0); MEAN CORPUSCULAR HEMOGLOBIN 29.8 pg (27.0-31.0); MEAN CORPUSCULAR HGB CONC 33.2 g/dL (33.0-37.0); MEAN PLATELET VOLUME 9.6 fL (7.2-11.7); MONO # 0.5 K/uL (0.0-0.8); NEUT # 4.3 K/uL (1.8-7.0); NEUT % 57.7 % (50.0-75.0); NRBC % 0.1 % (0.0-2.0); RBC 3.11 Mil/uL (3.80-5.20); RED CELL DISTRIBUTION WIDTH 19.6 % (11.5-14.5); WHITE BLOOD COUNT 7.5 K/uL (4.8-10.8)
[2018-09-04 07:03] LABS: ALB/GLOB RATIO 0.8 (1.0-2.1); ALBUMIN 2.9 g/dL (3.5-5.0); ALT/SGPT 231 U/L (9-52); AST/SGOT 54 U/L (14-36); BLOOD UREA NITROGEN 28 mg/dL (7-17); CALCIUM 8.3 mg/dl (8.6-10.4); GFR NON-AFRICAN AMERICAN > 60
--- NOTE | 2018-09-04 08:02 | CP.PCM.PN ---
<Bhanu Villegas - Last Filed: 09/04/18 13:28> Subjective - Date & Time of Evaluation Date of Evaluation: 09/04/18 Time of Evaluation: 07:59 - Subjective Subjective: HOSPITALIST SERVICE Pt seen and examined at bedside, ROS unable to be obtained, no acute events overnight as per nursing Objective - Vital Signs/Intake and Output Vital Signs (last 24 hours): Temp Pulse Resp BP Pulse Ox 97.8 F 81 21 131/79 98 09/04/18 04:00 09/04/18 04:00 09/04/18 04:00 09/04/18 04:00 09/04/18 04:00 Intake and Output: 09/04/18 09/04/18 06:59 18:59 Intake Total 680 40 Output Total 2 Balance 678 40 - Medications Medications: Current Medications Albuterol/Ipratropium (Duoneb 3 Mg/0.5 Mg (3 Ml) Ud) 3 ml INH RQ6 MANOLO Last Admin: 09/04/18 01:06 Dose: 3 ml Ascorbic Acid (Vitamin C 500 Mg Tab) 1,000 mg NG DAILY [facility] Last Admin: 09/03/18 09:25 Dose: 1,000 mg Bacitracin (Bacitracin) 1 ea TOP BID MANOLO Last Admin: 09/03/18 17:03 Dose: 1 ea Clonazepam (Klonopin) 0.5 mg GT DAILY [facility] Last Admin: 09/03/18 09:26 Dose: 0.5 mg Dextrose (Dextrose 50% Inj) 0 ml IVP .STAT PRN; Protocol PRN Reason: Hypoglycemia Protocol Dextrose (Glutose 15) 0 gm PO .ONCE PRN; Protocol PRN Reason: Hypoglycemia Protocol Ergocalciferol (Drisdol 50,000 Intl Units Cap) 1 cap GT Q7D MANOLO Stop: 10/06/18 19:16 Last Admin: 09/01/18 18:57 Dose: 1 cap Glucagon (Glucagen Diagnostic Kit) 0 mg IM .STAT PRN; Protocol PRN Reason: Hypoglycemia Protocol Cefepime HCl (Maxipime Iv 1 Gm Premix) 1 gm in 50 mls @ 100 mls/hr IVPB Q12H MANOLO; Protocol Last Admin: 09/04/18 01:31 Dose: 100 mls/hr Insulin Aspart (Novolog) 0 unit SC Q6 MANOLO; Protocol Last Admin: 09/04/18 05:36 Dose: Not Given Insulin Glargine (Lantus) 15 unit SC Q12 [facility] Last Admin: 08/23/18 10:39 Dose: Not Given Lactobacillus Acidophilus (Bacid Acidophilus) 1 cap PEG Q12 [facility] Last Admin: 09/03/18 21:02 Dose: 1 cap Methimazole (Tapazole) 20 mg PO Q8 [facility] Last Admin: 09/04/18 05:35 Dose: 20 mg Multivitamins (Hexavitamin) 1 tab PEG DAILY [facility] Last Admin: 09/03/18 09:26 Dose: 1 tab Pantoprazole Sodium (Protonix Susp) 40 mg GT Q12H [facility] Last Admin: 09/03/18 21:02 Dose: 40 mg Tobramycin Sulfate (Tobrex 0.3% Oph Soln) 2 drop OD Q6H [facility] Last Admin: 09/04/18 05:36 Dose: 2 drop Trazodone HCl (Desyrel) 25 mg GT HS [facility] Last Admin: 09/03/18 21:02 Dose: 25 mg - Labs Labs: 09/04/18 06:22 09/04/18 06:16 PT 12.8 SECONDS (9.7-12.2) H 09/02/18 05:48 INR 1.2 09/02/18 05:48 APTT 29 SECONDS (21-34) 09/02/18 05:48 - Additional Findings Additional findings: - Constitutional Appears: Chronically Ill - Head Exam Head Exam: NORMAL INSPECTION - Eye Exam Additional comments: R pupil sluggish reaction to light slightly smaller than L pupil - Respiratory Exam Additional comments: trach in place, dressing clean, dry, intact - GI/Abdominal Exam Additional comments: peg tube in place, dressing clean, dry, intact -Skin Exam bony prominences show mild excoriations, non erythematous non bleeding Assessment and Plan - Assessment and Plan (Free Text) Assessment: This is a 52yo F originally admitted to the ICU for Septic shock 2/2 to PNA/UTI worsened by embolic stroke, cardiac arrest, and anoxic brain injury. Pt is s/p IVC filter. Plan: Agitation - possible causes of weaning trial failure - clonazepam 0.5 daily & trazadone 25 mg HS - monitor for tachy/bradycardia, O2 sat - AST/ALT: 52/292 (down trending) - TSH level: 1.26 (WNL) Septic Shock Pneumonia Urinary Tract Infection - Pt remains afebrile > 72hrs - Trach Aspirate: Psuedomonas - Bronchoscopy by Dr. Maciel (08/23/18) culture showed Pseudomonas aerguinosa - ID Dr. Brock consulted, recs appreciated - HELD Micafungin due to transaminitis - Cefepime 1g q12 IVPB started 08/27 - 08/27 urine culture no growth > 5 days - 08/27 Blood culture no growth > 5 days - 08/25 stool culture - no growth - Worsening on CXR: Lasix 20IVP given today once Vaginal Bleeding - currently non-bleeding, 72hrs - plan for possible endometrial biopsy - H/H stable in 9s/ 26s - Stable - Off anticoag Acute Ischemic Hepatitis - Possibly secondary to hypotension - Downtrending - Avoid hepatotoxic medications - Hep panel is negative - Abd US shows bilateral pleural effusions, patent portal vein, no hydronephrosis, no GB stones or cholecystitis - Abd/pelv CT shows limited evlauation of possible hepatic vein thrombosis without IV contrast administration. Distended urinary bladder, 1.2 cm soft tissue nodule at the left adrenal gland - GI, Dr. London, evaluated the pt and pt's transaminitis is believed to be likely due to hypotension as well - Rapid decrease in LFTs is good prognosis. Anoxic Encephalopathy - s/p code Blue 07/10 and 07/20 - Pt is not at baseline as per - Continue to monitor - Neurology consulted, recs appreciated - Neg CT head w/o contrast, poor visualization Acute Respiratory Failure - s/p tracheostomy 07/24/18 Dr. Maciel will continue to attempt to wean off of vent. Unsuccessful so far. - Duonebs 3ml Inh Q4 - CXR worsening with pnuemonia possibly contributing to respiratory failure Ventricular Tachycardia NSTEMI Apical Thrombus LLE DVT - Code Blue 07/10: SVT==>VT required amiodarone, magnesium, one shock delivered - Code Blue 07/20: vtach s/p amiodarone, fluid, calcium gluconate, required compressions and shock - Cardiology Dr Francisco on case help appreciated - No cath needed. - Medical management - No chemical anticoagulation in light of bleeding episodes (patient has dysfunction uterine bleeding required blood transfusions; Ob has been consulted earlier -in the hospitalization to inpatient workup)-->recommending heparin 5000 unit subq8 (DVT ppx dose) and aspirin 81mg PO daily; likely thrombus is organized a -month of anticoagulation; risk is due to bleeding against stroke - d/c Propranolol 5mg PO TID (hold SBP<100 and HR<60) - Eliquis d/c bleeding and anemia-->dvt ppx and aspirin - Echo discussed with Dr. Francisco, patient does have residual clot-->aware we cannot anticoagulate given heavy vaginal bleeding; if patient can tolerate possible - aspirin - Pt noted to be tachycardic at 130, likely secondary to fever. Will give Lopressor 2.5 mg IVP x1 dose. - Restarted Propanolol 1 mg IVP Q6H, (hold SBP<100 and HR<60) Diabetes - HgBA1c: 7.8 - Hypoglycemic protocol - Sugars have ranged from 150-200 x 24 hours - Accuchecks Q4H - off Crestor 5mg PO qHS secondary to LFTs Hyperthyroidism? Low TSH, and Free T4 Thyroid Storm - Note Thyroid studies taken before amiodarone was given (please advised this is not amiodarone induced her levels were abnormal prior) - Patient does not have prior thyroid history - Endocrinology (Dr. Gayle) on board help appreciated - Thyroid U/S 07/16/18: showed heterogenous thydroid with multiple nodules bilaterally. She will need outpatient FNA Bx of the complex Left Lobe cyst (please see full report) - Methimazole 20mg PO TID - off Propranolol 5 mg PO TID due to hypotension - Monitor LFTs Anemia Likely Secondary to Chronic Diseases - Iron normal, TIBC low, Iron Saturation normal, Ferritin normal - Stool occult blood negative - B12 normal - Folate Normal - Transfused 1 unit PRBC 07/22/18, 2 unit of PRBC 08/13/18 1 unit on 08/17/18, 1 unit 08/23/18 - Patient has been seen by OB Hospitalist; no contraindication to anticoagulation - Case discussed with title inspector recommending against eliquis in light of bleeding; recommending for DVT ppx and aspirin Vitamin D deficiency - 50,000 international units once a week (3 doses given so far) - Restart Vitamin D 50,000 IU once a week for 9 weeks (on 08/18/18) LLE DVT - Eliquis 5 mg PO BID d/c 08/17 - s/p IVC filter (08/23/18) Deconditioning - Continue PT/OT - Continue to attempt to wean off of vent Acute on Chronic Renal Failure Resolved - Nephrology (Dr. Hyde) on board--> help appreciated - No indication for HD at this time - Continues to improve Hypernatremia Resolved - 152 today - Discontinue NS IVF PPX - Protonix 40mg IVP BID - Lactobacillus 1 cap PO BID - MVI 1x/day - Vitamin C 1,000 NG 1x/day - s/p Trach and Peg - SCD on Right and contraindicated on Left due to DVT - Peg feedings Continue Pulmocare at 40cc/hr - PICC Line 07/31/18 - bronchoscopy 08/23 - IVC filter 08/23 dispo: pending CXR tmrw, will consider starting micamine- spoke with Dr Brock and Dr Maciel <Saira Leahy V - Last Filed: 09/08/18 18:50> Objective - Vital Signs/Intake and Output Vital Signs (last 24 hours): Temp Pulse Resp BP Pulse Ox 98.4 F 95 H 20 132/72 100 09/08/18 12:00 09/08/18 12:00 09/08/18 12:00 09/08/18 12:00 09/08/18 12:00 Intake and Output: 09/08/18 09/08/18 06:59 18:59 Intake Total 590 Output Total 80 Balance 510 - Medications Medications: Current Medications Albuterol/Ipratropium (Duoneb 3 Mg/0.5 Mg (3 Ml) Ud) 3 ml INH Q4 [facility]OLO Last Admin: 09/08/18 11:00 Dose: 3 ml Ascorbic Acid (Vitamin C 500 Mg Tab) 1,000 mg NG DAILY [facility] Last Admin: 09/08/18 10:25 Dose: 1,000 mg Bacitracin (Bacitracin) 1 ea TOP BID [facility] Last Admin: 09/08/18 17:07 Dose: 1 ea Dextrose (Dextrose 50% Inj) 0 ml IVP .STAT PRN; Protocol PRN Reason: Hypoglycemia Protocol Dextrose (Glutose 15) 0 gm PO .ONCE PRN; Protocol PRN Reason: Hypoglycemia Protocol Ergocalciferol (Drisdol 50,000 Intl Units Cap) 1 cap GT Q7D [facility] Stop: 10/06/18 19:16 Last Admin: 09/01/18 18:57 Dose: 1 cap Glucagon (Glucagen Diagnostic Kit) 0 mg IM .STAT PRN; Protocol PRN Reason: Hypoglycemia Protocol Cefepime HCl (Maxipime Iv 1 Gm Premix) 1 gm in 50 mls @ 100 mls/hr IVPB Q12H [facility]; Protocol Last Admin: 09/08/18 16:36 Dose: 100 mls/hr Insulin Aspart (Novolog) 0 unit SC Q6 [facility]; Protocol Last Admin: 09/08/18 12:19 Dose: Not Given Insulin Glargine (Lantus) 15 unit SC Q12 [facility] Last Admin: 08/23/18 10:39 Dose: Not Given Lactobacillus Acidophilus (Bacid Acidophilus) 1 cap PEG Q12 [facility] Last Admin: 09/08/18 10:24 Dose: 1 cap Methimazole (Tapazole) 20 mg PO Q8 [facility] Last Admin: 09/08/18 17:09 Dose: 20 mg Multivitamins (Hexavitamin) 1 tab PEG DAILY [facility] Last Admin: 09/08/18 10:25 Dose: 1 tab Pantoprazole Sodium (Protonix Susp) 40 mg GT Q12H [facility] Last Admin: 09/08/18 10:25 Dose: 40 mg Tobramycin Sulfate (Tobrex 0.[facility]% [facility]) 2 drop OD Q6H [facility] Last Admin: 09/08/18 17:10 Dose: 2 drop Trazodone HCl (Desyrel) 25 mg GT HS [facility] Last Admin: 09/07/18 23:00 Dose: 25 mg - Labs Labs: 09/08/18 06:22 09/08/18 06:22 PT 11.9 SECONDS (9.7-12.2) 09/04/18 06:22 INR 1.1 09/04/18 06:22 APTT 29 SECONDS (21-34) 09/02/18 05:48 Assessment and Plan (1) Septic shock Status: Acute (2) Acute respiratory failure Status: Acute (3) Urinary tract infection Status: Acute (4) Acute renal failure Status: Acute (5) Aspiration pneumonia Status: Acute (6) Diabetes mellitus Status: Chronic (7) Ventricular arrhythmia Status: Acute (8) Hyperthyroidism Status: Acute (9) Anemia Status: Acute (10) Prophylactic measure Status: Acute Attending/Attestation - Attestation I have personally seen and examined this patient.: Yes I have fully participated in the care of the patient.: Yes I have reviewed all pertinent clinical information, including history, physical exam and plan: Yes Notes (Text): This is late computer entry for 09/04/18. Patient seen, examined and case discussed with medical cash poster. Patient has not had vaginal bleeding. Remains off DVT ppx and aspirin. patient's repeat chest xray shows mild pulmonary edema, given dose of Lasix 20mg IV to relieve congestion. Liver function numbers continue to decrease. procalcitonin 0.33 improvement from prior procalcitonin; Patient is on Iv abx to cover for pneumonia. Concern for fungal, however, culture does not show fungal, discussed with pulm/id to hold micafungin. 1) Septic Shock secondary to Pneumonia and Urinary Tract Infection New Pneumonia-->pseudomonas Assessment/Plan * Infectious Disease (Dr. Brock) on board-->help appreciated * Meropenem d/c 08/27 * Start Maxipime 1gm [id number] (active since 08/27/18) * Trach Aspirate: Psuedomonas * s/p bronchoscopy (08/23/18) * Pseudomonas aerguinosa * dictated by dr maciel * 08/23: Bronchial Washings: pseudomonas Aeruginosa * 08/23: Fungal Culture: Prelim: negative * 08/23: Mycobacterial culture: prelim * Recent culture: * 08/25/18 Blood culture: no growth 5 days X 2 * 08/23/18 Blood culture: no growth after 5 days X 2 * 08/27/18 Blood culture: no growth after 5 days * 08/27/18 UA and Urine Culture: no growth * Salmonella, shigella, or campylobacteria: not detected. * Ova and parasite: not detected * Chest xray (08/27/18): bilateral perihilar opacity with congestive change. Possible pulmonary edema * Chest xray (08/28/18); increasing bibasilar ill-defined opacity. pulmonary edema versus b/l pneumonia * Chest xray (09/04/18): in site tracheostomy tube in good position. Mild pulmonary vascular congestive changes with bilatral lower lobe alveloar type infiltrates and bilateral effusions * Procalcitonin: 2.89 (11/26)-->0.33 (09/04/18) 2) Shock Liver; Transminitis Assessment/Plan * GI has signed off * Hepatitis serology negative * Ammonia: normal * elevated INR--> vitamin K 08/24 * 08/24: off statin, benadryl, benzo, ambien, and micafungin (gave dose of 08/23) * Continue to monitor LFTs; suspected medication induced or related to low blood pressure * Gi (Dr. Murray) * discussed case with fellow 08/26/18 * Abd US shows bilateral pleural effusions, patent portal vein, no hydronephrosis, no GB stones or cholecystitis * CT Abdomen/pelvis (08/25/18): limited evaluated evaluation hepatic vein thrombosis. heterogenous attenuation of the liver. 3) Anoxic Encephalopathy Assessment/Plan * Code Blue 07/10 and 07/20 * Patient prior knowledge of 5 languages per but does not follow commands * CT head: no acute intracranial pathology. Age-related changes. no significant interval change. * suspect decline since second code blue * unable to get brain mri since she remains connected to vent via trach and has failed trials * Klonopin 0.5mg GT daily for behavioral distiburance 4) Acute Respiratory Failure Pulmonary Edema Pseudomona Pneumonia s/p Trach Assessment/Plan * Patient underwent tracheostomy 07/24/18 and s/p bronchoscopy 08/23 * Patient had tolerated trach collars last weekend thru Tuesday 08/14; however she has been on vent to trach. Patient has been unable to be weaned off vent. * Pulmonary (Dr. Maciel) on board-->assisting with weaning from trach on vent to trach collar * Duonebs 3ml Inh Q6H * s/p bronchoscopy (08/23/18) * Pseudomonas aerguinosa * dictated by dr maciel * 08/23: Bronchial Washings: pseudomonas Aeruginosa * 08/23: Fungal Culture: Prelim: negative * 08/23: Mycobacterial culture: prelim * Chest physiotherapy * Chest xray (09/04/18): in site tracheostomy tube in good position. Mild pulmonary vascular congestive changes with bilatral lower lobe alveloar type infiltrates and bilateral effusions 4) Ventricular Tachycardia NSTEMI Apical Thrombus LLE DVT s/p IVC filter Assessment/Plan * Code Blue 07/10: SVT==>VT required amiodarone, magnesium, one shock delivered * Code Blue 10/18: vtach s/p amiodarone, fluid, calcium gluconate, required compressions and shock * S/p IVC filter 08/23/18 * Cardiology Dr Francisco on case help appreciated * No cath needed. * Medical management * No chemical anticoagulation in light of bleeding episodes (patient has dysfunction uterine bleeding required blood transfusions; Ob has been consulted earlier in the hospitalization to inpatient workup)-->recommending heparin 5000 unit subq8 (DVT ppx dose) and aspirin 81mg PO daily; likely thrombus is organized a month of anticoagulation; risk is due to bleeding against stroke * d/c Propranolol 5mg PO TID (hold SBP<100 and HR<60) * Eliquis d/c bleeding and anemia-->dvt ppx and aspirin * Echo discussed with Dr. Francisco, patient does have residual clot-->aware we cannot anticoagulate given heavy vaginal bleeding; if patient can tolerate possible aspirin 4) VRE Urinary Tract Infection (resolved) Assessment/Plan * OFF Contact isolation 5) Diabetes-->chronic Assessment/Plan * HgBA1c: 7.8 * Hypoglycemic protocol * held Lantus 15 units subcutaneous at bedtime Q12 since 08/23/18 * Hypoglycemic 08/23/18 AM * Accuchecks Q4H * off Crestor 5mg POqHS secondary to LFTs 6) Acute on Chronic Renal Failure (resolved) Assessment/Plan * Nephrology (Dr. Hyde) on board--> help appreciated-->has signed off 7) Hyperthyroidism? Low TSH, and Free T4 Thyroid Storm Assessment/Plan * Note Thyroid studies taken before amiodarone was given (please advised this is not amiodarone induced her levels were abnormal prior) * Patient does not have prior thyroid history * Endocrinology (Dr. Gayle) on board help appreciated * Thyroid U/S 07/16/18: showed heterogenous thyroid with multiple nodules bilaterally. She will need outpatient FNA Bx of the complex Left Lobe cyst (please see full report) * Methimazole 20mg PO TID * off Propranolol 5 mg PO TID due to hypotension * Monitor LFTs 8) Anemia Likely Secondary to Chronic Diseases Dysfunctional uterine bleeding Assessment/Plan * Iron normal, TIBC low, Iron Saturation normal, Ferritin normal * Stool occult blood negative * B12 normal * Folate Normal * Transfused 1 unit PRBC 07/22/18, 2 unit of PRBC 08/13/18 1 unit on 08/17/18, 1 unit 08/23/18 * Patient has been seen by OB Hospitalist; no contraindication to anticoagulation * recommend outpatient workup for vaginal bleeding * Case discussed with title inspector recommending against eliquis in light of bleeding; recommending for DVT ppx and aspirin if patient can tolerate it * patient has not had vaginal bleeding; discussed with nursing staff. 9) Vitamin D deficiency Assessment plan * 50,000 international units once a week (3 doses given so far) * Restart Vitamin D 50,000 IU once a week for 9 weeks (on 08/18/18) 10) Thrombocytopenia-->resolved Assessment plan * HIT/RUSTY were negative 11) 13 mm Left Adrenal Nodule * As seen on CT Chest 07/16/[address] abdomen/pelvis * Will need outpatient follow up for cross sectional imaging for better characterization 12) Hypernatremia (resolved) * Start free fluid washes 250ml Q6 via tube feeds 13) LLE DVT s/p IVC filter * Eliquis 5 mg PO BID d/c 08/17 * Acute thrombosis of the left common femoral and femoral veins with severe reduction of the venous return on 07/18/18 venous doppler * Patient had completed one month on Eliquis; however she continues to have dysfunction uterine bleeding; cardiology is recommending against eliquis for thrombus given bleeding risk * repeat doppler to see if DVT has resolved by ultrasound repeat * s/p IVC filter (08/23/18) 14) Deconditioning * Patient needs continued PT/OT * I did speak with Dr. Pham 08/18 in regards to reset patient's sleep wake cycle--> her pattern tends to be she is agitated at night when her is not present (her reliable social cue) receives benzo/haldol/seroquel and becomes very lethargic in the morning which presents rehab from working with her.Ambien currently helps her to sleep at Note Patient is connected to vent. She is unable to get off vent keeps failing trial. Patient was last on trach collar on 08/12. She is unable to get the MRI because the vent does not fit in the MRI. * Respiratory attempting to wean but remains on vent * 08/24: off ambien/benadryl secondary to elevated LFTs * Patient unable to get LTAC given lack of insurance 15) Prophylactic measure * Protonix 40mg GT BID * Lactobacillus 1 cap PO BID * MVI 1x/day * Vitamin C 1,000 NG 1x/day * s/p Trach and Peg * SCD on Right and contraindicated on Left due to DVT * Peg feedings * Pulmcar 40cc/hr * patient had frequent BMs on prior formula; no diarrhea; we have spoken with dietary to change it on 08/19/18 * PICC Line 07/31/18 * Note: speak to patient in alexis to assess neurologic status-->she does follow sometimes * s/p bronchoscopy 08/23 * s/p IVC filter 08/23 * patient is FULL CODE * Social work note (08/09/18): patient is undocumented, has not health insurance, dc planning will be at home with
[2018-09-04 08:38] LABS: INR 1.1; PROTHROMBIN TIME 11.9 SECONDS (9.7-12.2)
[2018-09-04] MEDS: Lactobacillus Acidophilus 500 MU Cap PEG SCH ×2 (09:14→21:02)
[2018-09-04] MEDS: Multiple Vitamins Tab PEG SCH (09:14)
[2018-09-04] MEDS: Pantoprazole 40 mg Susp UD GT SCH ×2 (09:15→21:01)
[2018-09-04] MEDS: Bacitracin 500 Units/gm Oint Foilpak UD TOP SCH ×2 (09:15→17:05)
--- NOTE | 2018-09-04 12:29 | RAD ---
Date of service: 09/04/2018 HISTORY: Pneumonia COMPARISON: None available. FINDINGS: In situ tracheostomy tube in good position. Diffuse pulmonary vascular congestive changes with bilateral lower lobe alveolar-type infiltrates and bilateral effusions. LUNGS: No active pulmonary disease. PLEURA: No significant pleural effusion identified, no pneumothorax apparent. CARDIOVASCULAR: Mild aortic atherosclerotic calcification present. Heart appears borderline enlarged.. No pulmonary vascular congestion. OSSEOUS STRUCTURES: No significant abnormalities. VISUALIZED UPPER ABDOMEN: Normal. OTHER FINDINGS: None. IMPRESSION: In situ tracheostomy tube in good position. Mild pulmonary vascular congestive changes with bilateral lower lobe alveolar-type infiltrates and bilateral effusions.
[2018-09-04] MEDS: traZODone 25 mg Tab GT SCH (21:02)
[2018-09-05] MEDS: Cefepime IV 1 gm in Dextrose 1 GM/50 ML BAG IVPB SCH ×2 (02:05→14:00)
[2018-09-05] MEDS: Albuterol-Ipratrop 3 mg / 0.5 (3 ml) UD INH SCH ×6 (02:28→19:17)
[2018-09-05] MEDS: (Novolog) Insulin Aspart, Recombinant 100 u/ml 10 ml vial SC SCH ×5 (05:32→23:59)
[2018-09-05] MEDS: Tobramycin 0.3% OPHT SOLN OD SCH ×4 (05:32→23:42)
[2018-09-05 05:38] LABS: BASO % 0.9 % (0.0-2.0); EOS # 0.1 K/uL (0.0-0.7); EOS % 2.1 % (0.0-4.0); HEMOGLOBIN 8.1 g/dL (11.0-16.0); LYMPH # 1.2 K/uL (1.0-4.3); LYMPH % 23.5 % (20.0-40.0); MEAN CORPUSCULAR HEMOGLOBIN 29.6 pg (27.0-31.0); MEAN CORPUSCULAR HGB CONC 33.3 g/dL (33.0-37.0); MEAN PLATELET VOLUME 9.3 fL (7.2-11.7); MONO # 0.4 K/uL (0.0-0.8); NEUT # 3.4 K/uL (1.8-7.0); NEUT % 66.5 % (50.0-75.0); RBC 2.73 Mil/uL (3.80-5.20); RED CELL DISTRIBUTION WIDTH 19.5 % (11.5-14.5); WHITE BLOOD COUNT 5.2 K/uL (4.8-10.8)
[2018-09-05 06:05] LABS: ALB/GLOB RATIO 0.8 (1.0-2.1); ALBUMIN 2.6 g/dL (3.5-5.0); ALT/SGPT 174 U/L (9-52); AST/SGOT 41 U/L (14-36); BLOOD UREA NITROGEN 27 mg/dL (7-17); CALCIUM 8.2 mg/dl (8.6-10.4); GFR NON-AFRICAN AMERICAN > 60
--- NOTE | 2018-09-05 07:33 | CP.PCM.PN ---
<Bhanu Villegas - Last Filed: 09/05/18 14:06> Subjective - Date & Time of Evaluation Date of Evaluation: 09/05/18 Time of Evaluation: 07:33 - Subjective Subjective: HOSPITALIST SERVICE Pt seen and examined at bedside. As per nursing, no acute events overnight. Objective - Vital Signs/Intake and Output Vital Signs (last 24 hours): Temp Pulse Resp BP Pulse Ox 98.2 F 76 20 113/64 97 09/05/18 04:00 09/04/18 18:00 09/04/18 16:00 09/04/18 16:00 09/04/18 16:00 Intake and Output: 09/05/18 09/05/18 06:59 18:59 Intake Total 680 Output Total 1 Balance 679 - Medications Medications: Current Medications Albuterol/Ipratropium (Duoneb 3 Mg/0.5 Mg (3 Ml) Ud) 3 ml INH Q4 [facility] Last Admin: 09/05/18 06:18 Dose: Not Given Ascorbic Acid (Vitamin C 500 Mg Tab) 1,000 mg NG DAILY [facility] Last Admin: 09/04/18 09:14 Dose: 1,000 mg Bacitracin (Bacitracin) 1 ea TOP BID [facility] Last Admin: 09/04/18 17:05 Dose: 1 ea Clonazepam (Klonopin) 0.5 mg GT DAILY [facility] Last Admin: 09/04/18 09:15 Dose: 0.5 mg Dextrose (Dextrose 50% Inj) 0 ml IVP .STAT PRN; Protocol PRN Reason: Hypoglycemia Protocol Dextrose (Glutose 15) 0 gm PO .ONCE PRN; Protocol PRN Reason: Hypoglycemia Protocol Ergocalciferol (Drisdol 50,000 Intl Units Cap) 1 cap GT Q7D [facility] Stop: 10/06/18 19:16 Last Admin: 09/01/18 18:57 Dose: 1 cap Glucagon (Glucagen Diagnostic Kit) 0 mg IM .STAT PRN; Protocol PRN Reason: Hypoglycemia Protocol Cefepime HCl (Maxipime Iv 1 Gm Premix) 1 gm in 50 mls @ 100 mls/hr IVPB Q12H [facility]; Protocol Last Admin: 09/05/18 02:05 Dose: 100 mls/hr Insulin Aspart (Novolog) 0 unit SC Q6 [facility]; Protocol Last Admin: 09/05/18 05:32 Dose: 2 units Insulin Glargine (Lantus) 15 unit SC Q12 [facility] Last Admin: 08/23/18 10:39 Dose: Not Given Lactobacillus Acidophilus (Bacid Acidophilus) 1 cap PEG Q12 [facility] Last Admin: 09/04/18 21:02 Dose: 1 cap Methimazole (Tapazole) 20 mg PO Q8 [facility] Last Admin: 09/05/18 05:33 Dose: 20 mg Multivitamins (Hexavitamin) 1 tab PEG DAILY [facility] Last Admin: 09/04/18 09:14 Dose: 1 tab Pantoprazole Sodium (Protonix Susp) 40 mg GT Q12H [facility] Last Admin: 09/04/18 21:01 Dose: 40 mg Tobramycin Sulfate (Tobrex 0.3% Oph Soln) 2 drop OD Q6H [facility] Last Admin: 09/05/18 05:32 Dose: 2 drop Trazodone HCl (Desyrel) 25 mg GT HS [facility] Last Admin: 09/04/18 21:02 Dose: 25 mg - Labs Labs: 09/05/18 05:25 09/05/18 05:26 PT 11.9 SECONDS (9.7-12.2) 09/04/18 06:22 INR 1.1 09/04/18 06:22 APTT 29 SECONDS (21-34) 09/02/18 05:48 Assessment and Plan - Assessment and Plan (Free Text) Assessment: This is a 52yo F originally admitted to the ICU for Septic shock 2/2 to PNA/UTI worsened by embolic stroke, cardiac arrest, and anoxic brain injury. Pt is s/p IVC filter. Plan: Agitation - possible causes of weaning trial failure - clonazepam 0.5 daily & trazadone 25 mg HS - monitor for tachy/bradycardia, O2 sat - AST/ALT: 52/292 (down trending) - TSH level: 1.26 (WNL) Septic Shock Pneumonia Urinary Tract Infection - Pt remains afebrile > 72hrs - Trach Aspirate: Psuedomonas - Bronchoscopy by Dr. Lozada (08/23/18) culture showed Pseudomonas aerguinosa - ID Dr. Brock consulted, recs appreciated - HELD Micafungin due to transaminitis - Cefepime 1g q12 IVPB started 08/27 - 08/27 urine culture no growth > 5 days - 08/27 Blood culture no growth > 5 days - 08/25 stool culture - no growth - CXR improved - f/u CT chest for pleural effusions Vaginal Bleeding - currently non-bleeding, 72hrs - plan for possible endometrial biopsy - H/H stable in 9s/ 26s - Stable - Off anticoag Acute Ischemic Hepatitis - Possibly secondary to hypotension - Downtrending - Avoid hepatotoxic medications - Hep panel is negative - Abd US shows bilateral pleural effusions, patent portal vein, no hydronephrosis, no GB stones or cholecystitis - Abd/pelv CT shows limited evlauation of possible hepatic vein thrombosis without IV contrast administration. Distended urinary bladder, 1.2 cm soft tissue nodule at the left adrenal gland - GI, Dr. London, evaluated the pt and pt's transaminitis is believed to be likely due to hypotension as well - Rapid decrease in LFTs is good prognosis. Anoxic Encephalopathy - s/p code Blue 07/10 and 07/20 - Pt is not at baseline as per - Continue to monitor - Neurology consulted, recs appreciated - Neg CT head w/o contrast, poor visualization - f/u Dr Pham rechugo Acute Respiratory Failure - s/p tracheostomy 07/24/18 Dr. Lozada will continue to attempt to wean off of vent. Unsuccessful so far. - Duonebs 3ml Inh Q4 - CXR worsening with pnuemonia possibly contributing to respiratory failure Ventricular Tachycardia NSTEMI Apical Thrombus LLE DVT - Code Blue 07/10: SVT==>VT required amiodarone, magnesium, one shock delivered - Code Blue 07/20: vtach s/p amiodarone, fluid, calcium gluconate, required compressions and shock - Cardiology Dr Francisco on case help appreciated - No cath needed. - Medical management - No chemical anticoagulation in light of bleeding episodes (patient has dysfunction uterine bleeding required blood transfusions; Ob has been consulted earlier -in the hospitalization to inpatient workup)-->recommending heparin 5000 unit subq8 (DVT ppx dose) and aspirin 81mg PO daily; likely thrombus is organized a -month of anticoagulation; risk is due to bleeding against stroke - d/c Propranolol 5mg PO TID (hold SBP<100 and HR<60) - Eliquis d/c bleeding and anemia-->dvt ppx and aspirin - Echo discussed with Dr. Francisco, patient does have residual clot-->aware we cannot anticoagulate given heavy vaginal bleeding; if patient can tolerate possible - aspirin - Pt noted to be tachycardic at 130, likely secondary to fever. Will give Lopressor 2.5 mg IVP x1 dose. - Restarted Propanolol 1 mg IVP Q6H, (hold SBP<100 and HR<60) Diabetes - HgBA1c: 7.8 - Hypoglycemic protocol - Sugars have ranged from 150-200 x 24 hours - Accuchecks Q4H - off Crestor 5mg PO qHS secondary to LFTs Hyperthyroidism? Low TSH, and Free T4 Thyroid Storm - Note Thyroid studies taken before amiodarone was given (please advised this is not amiodarone induced her levels were abnormal prior) - Patient does not have prior thyroid history - Endocrinology (Dr. Gayle) on board help appreciated - Thyroid U/S 07/16/18: showed heterogenous thydroid with multiple nodules bilaterally. She will need outpatient FNA Bx of the complex Left Lobe cyst (please see full report) - Methimazole 20mg PO TID - off Propranolol 5 mg PO TID due to hypotension - Monitor LFTs Anemia Likely Secondary to Chronic Diseases - Iron normal, TIBC low, Iron Saturation normal, Ferritin normal - Stool occult blood negative - B12 normal - Folate Normal - Transfused 1 unit PRBC 07/22/18, 2 unit of PRBC 08/13/18 1 unit on 08/17/18, 1 unit 08/23/18 - Patient has been seen by OB Hospitalist; no contraindication to anticoagulation - Case discussed with pressroom supervisor recommending against eliquis in light of bleeding; recommending for DVT ppx and aspirin Vitamin D deficiency - 50,000 international units once a week (3 doses given so far) - Restart Vitamin D 50,000 IU once a week for 9 weeks (on 08/18/18) LLE DVT - Eliquis 5 mg PO BID d/c 08/17 - s/p IVC filter (08/23/18) Deconditioning - Continue PT/OT - Continue to attempt to wean off of vent Acute on Chronic Renal Failure Resolved - Nephrology (Dr. Hyde) on board--> help appreciated - No indication for HD at this time - Continues to improve Hypernatremia Resolved - 152 today - Discontinue NS IVF PPX - Protonix 40mg IVP BID - Lactobacillus 1 cap PO BID - MVI 1x/day - Vitamin C 1,000 NG 1x/day - s/p Trach and Peg - SCD on Right and contraindicated on Left due to DVT - Peg feedings Continue Pulmocare at 40cc/hr - PICC Line 07/31/18 - bronchoscopy 08/23 - IVC filter 08/23 dispo: pending CXR tmrw, will consider starting micamine- spoke with Dr Brock and Dr Lozada <Saira Leahy V - Last Filed: 10/24/18 16:40> Objective - Vital Signs/Intake and Output Vital Signs (last 24 hours): Temp Pulse Resp BP Pulse Ox 99.8 F H 90 13 95/54 L 100 10/24/18 13:00 10/24/18 16:00 10/24/18 13:00 10/24/18 13:00 10/24/18 13:00 Intake and Output: 10/24/18 10/24/18 06:59 18:59 Intake Total 540 Output Total 300 Balance 240 - Medications Medications: Current Medications Acetylcysteine (Acetylcysteine 20%) 4 ml INH RQ4 [facility] Last Admin: 10/24/18 16:27 Dose: 4 ml Albuterol/Ipratropium (Duoneb 3 Mg/0.5 Mg (3 Ml) Ud) 3 ml INH RQ4 [facility] Last Admin: 10/24/18 16:27 Dose: 3 ml Ascorbic Acid (Vitamin C 500 Mg Tab) 1,000 mg NG DAILY [facility] Last Admin: 10/24/18 10:42 Dose: 1,000 mg Aspirin (Aspirin Chewable) 81 mg GT DAILY [facility] Last Admin: 10/24/18 10:43 Dose: 81 mg Dextrose (Dextrose 50% Inj) 0 ml IVP .STAT PRN; Protocol PRN Reason: Hypoglycemia Protocol Dextrose (Glutose 15) 0 gm PO .ONCE PRN; Protocol PRN Reason: Hypoglycemia Protocol Furosemide (Lasix) 20 mg IVP ONCE PRN PRN Reason: PLEURAL EFFUSION Last Admin: 10/21/18 21:30 Dose: 20 mg Glucagon (Glucagen Diagnostic Kit) 0 mg IM .STAT PRN; Protocol PRN Reason: Hypoglycemia Protocol Methimazole (Tapazole) 20 mg PO Q8 [facility] Last Admin: 10/24/18 12:59 Dose: 20 mg Midodrine (Proamatine) 10 mg PO TID [facility] Last Admin: 10/24/18 12:59 Dose: 10 mg Modafinil (Provigil) 50 mg PO DAILY [facility] Last Admin: 10/24/18 10:43 Dose: 50 mg Multivitamins (Hexavitamin) 1 tab PEG DAILY [facility] Last Admin: 10/24/18 10:43 Dose: 1 tab Pantoprazole Sodium (Protonix Susp) 40 mg GT Q12H [facility] Last Admin: 10/24/18 10:43 Dose: 40 mg Tamsulosin HCl (Flomax) 0.4 mg PEG DAILY [facility] Last Admin: 10/24/18 10:43 Dose: 0.4 mg Vitamin A (Vitamin A & D Oint Ud Foilpak) 0.5 ea TOP BID [facility] Last Admin: 10/24/18 10:43 Dose: 0.5 ea - Labs Labs: 10/24/18 06:07 10/24/18 06:07 PT 13.3 SECONDS (9.7-12.2) H 10/23/18 06:05 INR 1.2 10/23/18 06:05 APTT 23 SECONDS (21-34) 10/02/18 06:10 Assessment and Plan (1) Septic shock Status: Acute (2) Acute respiratory failure Status: Acute (3) Urinary tract infection Status: Acute (4) Acute renal failure Status: Acute (5) Aspiration pneumonia Status: Acute (6) Diabetes mellitus Status: Chronic (7) Ventricular arrhythmia Status: Acute (8) Hyperthyroidism Status: Acute (9) Anemia Status: Acute (10) Anoxic brain injury Status: Acute (11) Prophylactic measure Status: Acute Attending/Attestation - Attestation I have personally seen and examined this patient.: Yes I have fully participated in the care of the patient.: Yes I have reviewed all pertinent clinical information, including history, physical exam and plan: Yes
[2018-09-05] MEDS: Multiple Vitamins Tab PEG SCH (09:31)
[2018-09-05] MEDS: Pantoprazole 40 mg Susp UD GT SCH ×2 (09:31→21:10)
[2018-09-05] MEDS: Lactobacillus Acidophilus 500 MU Cap PEG SCH ×2 (09:31→21:09)
[2018-09-05] MEDS: Bacitracin 500 Units/gm Oint Foilpak UD TOP SCH ×2 (09:31→18:09)
--- NOTE | 2018-09-05 13:33 | RAD ---
Date of service: 09/05/2018 HISTORY: worsening CXRs, may start micamine COMPARISON: Multiple serial examinations preceding the most recent study: September 04, 2018. FINDINGS: LUNGS: Stable pulmonary vascular congestion. PLEURA: Stable bilateral pleural effusions. CARDIOVASCULAR: Atherosclerotic calcifications identified primarily aortic arch. No significant interval change compared to the prior examination(s). OSSEOUS STRUCTURES: No significant abnormalities. VISUALIZED UPPER ABDOMEN: Normal. OTHER FINDINGS: Stable, satisfactory position of tracheostomy device. IMPRESSION: Stable CHF/pulmonary vascular congestion with stable bilateral pleural effusions.
--- NOTE | 2018-09-05 17:46 | CP.PCM.PN ---
Subjective - Date & Time of Evaluation Date of Evaluation: 09/05/18 Time of Evaluation: 13:00 - Subjective Subjective: Neurology Progress Note: Mrs. Isaacs was seen and examined today at bedside in the ICU. Her was present and provided some recent history and assistance. Recently, the patient has suffered from a pneumonia and Ambien/Benadryl were discontinued. When I saw the patient, her eyes were closed and she was moving her arms in an uncoordinated, yet somewhat regular manner with a certain periodicity. She did not follow commands and did not track when her eyes were forced open. She moves all extremities, but she had less movement in the lower extremities. She continues to be vent dependent and has a trach collar. She has not been able to obtain the MRI of her brain as a result. Objective - Vital Signs/Intake and Output Vital Signs (last 24 hours): Temp Pulse Resp BP Pulse Ox 98.2 F 90 15 123/68 97 09/05/18 04:00 09/05/18 12:08 09/05/18 12:08 09/05/18 12:08 09/05/18 12:08 Intake and Output: 09/05/18 09/05/18 06:59 18:59 Intake Total 680 Output Total 1 Balance 679 - Medications Medications: Current Medications Albuterol/Ipratropium (Duoneb 3 Mg/0.5 Mg (3 Ml) Ud) 3 ml INH Q4 [facility] Last Admin: 09/05/18 15:55 Dose: 3 ml Ascorbic Acid (Vitamin C 500 Mg Tab) 1,000 mg NG DAILY [facility] Last Admin: 09/05/18 09:31 Dose: 1,000 mg Bacitracin (Bacitracin) 1 ea TOP BID [facility] Last Admin: 09/05/18 09:31 Dose: 1 ea Clonazepam (Klonopin) 0.5 mg GT DAILY [facility] Last Admin: 09/05/18 09:31 Dose: 0.5 mg Dextrose (Dextrose 50% Inj) 0 ml IVP .STAT PRN; Protocol PRN Reason: Hypoglycemia Protocol Dextrose (Glutose 15) 0 gm PO .ONCE PRN; Protocol PRN Reason: Hypoglycemia Protocol Ergocalciferol (Drisdol 50,000 Intl Units Cap) 1 cap GT Q7D [facility] Stop: 10/06/18 19:16 Last Admin: 11/30/18 18:57 Dose: 1 cap Glucagon (Glucagen Diagnostic Kit) 0 mg IM .STAT PRN; Protocol PRN Reason: Hypoglycemia Protocol Cefepime HCl (Maxipime Iv 1 Gm Premix) 1 gm in 50 mls @ 100 mls/hr IVPB Q12H [facility]; Protocol Last Admin: 09/05/18 02:05 Dose: 100 mls/hr Insulin Aspart (Novolog) 0 unit SC Q6 [facility]; Protocol Last Admin: 09/05/18 05:32 Dose: 2 units Insulin Glargine (Lantus) 15 unit SC Q12 [facility] Last Admin: 08/23/18 10:39 Dose: Not Given Lactobacillus Acidophilus (Bacid Acidophilus) 1 cap PEG Q12 [facility] Last Admin: 09/05/18 09:31 Dose: 1 cap Methimazole (Tapazole) 20 mg PO Q8 [facility] Last Admin: 09/05/18 05:33 Dose: 20 mg Multivitamins (Hexavitamin) 1 tab PEG DAILY [facility] Last Admin: 09/05/18 09:31 Dose: 1 tab Pantoprazole Sodium (Protonix Susp) 40 mg GT Q12H [facility] Last Admin: 09/05/18 09:31 Dose: 40 mg Tobramycin Sulfate (Tobrex 0.3% [facility]) 2 drop OD Q6H [facility] Last Admin: 09/05/18 05:32 Dose: 2 drop Trazodone HCl (Desyrel) 25 mg GT HS [facility] Last Admin: 09/04/18 21:02 Dose: 25 mg - Labs Labs: 09/05/18 05:25 09/05/18 05:26 PT 11.9 SECONDS (9.7-12.2) 09/04/18 06:22 INR 1.1 09/04/18 06:22 APTT 29 SECONDS (21-34) 09/02/18 05:48 - Neurological Exam Additional comments: In a stuporous state, or Grade II coma most of the time. Spontaneous movements without any purpose are more consistent with a persistent vegetative state. Brainstem responses are intact. Bilateral upgoing plantar responses noted. Assessment and Plan (1) Persistent vegetative state Assessment & Plan: Likely due to anoxic brain injury. Recover of consciousness is rare at this point. MRI of the brain would be helpful. I recommend resuming Ambien 10 mg daily and obtain EEG for further evaluation. Status: Acute
--- NOTE | 2018-09-05 17:52 | CT ---
Date of service: 09/05/2018 PROCEDURE: CT Chest without contrast HISTORY: R/O Pleural Effusion COMPARISON: 07/16/2018 CT thorax TECHNIQUE: Contiguous axial images were obtained through the chest without intravenous contrast enhancement. Sagittal and coronal reconstructions were performed. Radiation dose: Total exam DLP = 484.65 mGy-cm. This CT exam was performed using one or more of the following dose reduction techniques: Automated exposure control, adjustment of the mA and/or kV according to patient size, and/or use of iterative reconstruction technique. FINDINGS: LUNGS: Compressive atelectasis related to bilateral pleural effusions. MEDIASTINUM: Unremarkable thoracic aorta. No aneurysm. Cardiomegaly. Pericardial effusion slightly larger than that seen previously. Main pulmonary artery unremarkable. No vascular congestion. No lymphadenopathy. PICC line in satisfactory position Atherosclerotic calcifications identified primarily aortic arch. PLEURA: Bilateral pleural effusions right larger than left. The right pleural effusion is increase compared to the prior study. BONES: No fracture. No destructive lesion. UPPER ABDOMEN: Possible gallstone. IVC filter identified. OTHER FINDINGS: Stable, satisfactory position of tracheostomy device. Stable enlarged heterogeneous thyroid gland. IMPRESSION: Persistent bilateral pleural effusions right larger than left. Modest interval increase in the right pleural effusion. Stable left pleural effusion. Underlying compressive atelectasis primarily affecting the lower lobes right greater than left. Slight increase in small pericardial effusion.
[2018-09-05] MEDS: traZODone 25 mg Tab GT SCH (21:10)
[2018-09-06] MEDS: Albuterol-Ipratrop 3 mg / 0.5 (3 ml) UD INH SCH ×6 (00:57→19:50)
[2018-09-06] MEDS: Cefepime IV 1 gm in Dextrose 1 GM/50 ML BAG IVPB SCH ×2 (02:06→14:00)
[2018-09-06] MEDS: Tobramycin 0.3% OPHT SOLN OD SCH ×3 (05:37→17:50)
[2018-09-06] MEDS: (Novolog) Insulin Aspart, Recombinant 100 u/ml 10 ml vial SC SCH ×3 (05:38→17:29)
[2018-09-06 05:50] LABS: BASO # 0.1 K/uL (0.0-0.2); BASO % 1.1 % (0.0-2.0); EOS # 0.1 K/uL (0.0-0.7); EOS % 2.7 % (0.0-4.0); HEMOGLOBIN 8.6 g/dL (11.0-16.0); LYMPH # 0.9 K/uL (1.0-4.3); LYMPH % 18.4 % (20.0-40.0); MEAN CELL VOLUME 89.6 fL (81.0-99.0); MEAN CORPUSCULAR HEMOGLOBIN 29.7 pg (27.0-31.0); MEAN CORPUSCULAR HGB CONC 33.1 g/dL (33.0-37.0); MEAN PLATELET VOLUME 9.3 fL (7.2-11.7); MONO # 0.4 K/uL (0.0-0.8); MONO % 7.2 % (0.0-10.0); NEUT # 3.6 K/uL (1.8-7.0); NEUT % 70.6 % (50.0-75.0); RBC 2.9 Mil/uL (3.80-5.20); WHITE BLOOD COUNT 5.2 K/uL (4.8-10.8)
[2018-09-06 06:07] LABS: ALB/GLOB RATIO 0.8 (1.0-2.1); ALBUMIN 2.7 g/dL (3.5-5.0); ALT/SGPT 156 U/L (9-52); AST/SGOT 39 U/L (14-36); BLOOD UREA NITROGEN 27 mg/dL (7-17); CALCIUM 8.4 mg/dl (8.6-10.4); GFR NON-AFRICAN AMERICAN > 60
--- NOTE | 2018-09-06 07:21 | CP.PCM.PN ---
<Bhanu Villegas - Last Filed: 09/06/18 17:16> Subjective - Date & Time of Evaluation Date of Evaluation: 09/06/18 Time of Evaluation: 07:21 - Subjective Subjective: HOSPITALIST SERVICE Pt seen and examined sitting in chair, active movements and follows momentarily with eyes,. No acute events overnight as per nursing. Objective - Vital Signs/Intake and Output Vital Signs (last 24 hours): Temp Pulse Resp BP Pulse Ox 98 F 92 H 18 129/59 L 99 09/06/18 04:00 09/06/18 04:00 09/06/18 04:00 09/06/18 04:00 09/06/18 04:00 Intake and Output: 09/06/18 09/06/18 06:59 18:59 Intake Total 780 Output Total 2 Balance 778 - Medications Medications: Current Medications Albuterol/Ipratropium (Duoneb 3 Mg/0.5 Mg (3 Ml) Ud) 3 ml INH Q4 [facility] Last Admin: 09/06/18 04:28 Dose: 3 ml Ascorbic Acid (Vitamin C 500 Mg Tab) 1,000 mg NG DAILY [facility] Last Admin: 09/05/18 09:31 Dose: 1,000 mg Bacitracin (Bacitracin) 1 ea TOP BID [facility] Last Admin: 09/05/18 18:09 Dose: 1 ea Dextrose (Dextrose 50% Inj) 0 ml IVP .STAT PRN; Protocol PRN Reason: Hypoglycemia Protocol Dextrose (Glutose 15) 0 gm PO .ONCE PRN; Protocol PRN Reason: Hypoglycemia Protocol Ergocalciferol (Drisdol 50,000 Intl Units Cap) 1 cap GT Q7D [facility] Stop: 10/06/18 19:16 Last Admin: 09/01/18 18:57 Dose: 1 cap Glucagon (Glucagen Diagnostic Kit) 0 mg IM .STAT PRN; Protocol PRN Reason: Hypoglycemia Protocol Cefepime HCl (Maxipime Iv 1 Gm Premix) 1 gm in 50 mls @ 100 mls/hr IVPB Q12H [facility]; Protocol Last Admin: 09/06/18 02:06 Dose: 100 mls/hr Insulin Aspart (Novolog) 0 unit SC Q6 [facility]; Protocol Last Admin: 09/06/18 05:38 Dose: 2 units Insulin Glargine (Lantus) 15 unit SC Q12 [facility] Last Admin: 08/23/18 10:39 Dose: Not Given Lactobacillus Acidophilus (Bacid Acidophilus) 1 cap PEG Q12 [facility] Last Admin: 09/05/18 09:31 Dose: 1 cap Methimazole (Tapazole) 20 mg PO Q8 [facility] Last Admin: 09/06/18 05:38 Dose: 20 mg Multivitamins (Hexavitamin) 1 tab PEG DAILY [facility] Last Admin: 09/05/18 09:31 Dose: 1 tab Pantoprazole Sodium (Protonix Susp) 40 mg GT Q12H [facility] Last Admin: 09/05/18 21:10 Dose: 40 mg Tobramycin Sulfate (Tobrex 0.3% Ophth Soln) 2 drop OD Q6H [facility] Last Admin: 09/06/18 05:37 Dose: 2 drop Trazodone HCl (Desyrel) 25 mg GT HS [facility] Last Admin: 09/05/18 21:10 Dose: 25 mg - Labs Labs: 09/06/18 05:45 09/06/18 05:45 PT 11.9 SECONDS (9.7-12.2) 09/04/18 06:22 INR 1.1 09/04/18 06:22 APTT 29 SECONDS (21-34) 09/02/18 05:48 - Additional Findings Additional findings: - Constitutional Appears: Chronically Ill - Head Exam Head Exam: NORMAL INSPECTION - Eye Exam Additional comments: R pupil sluggish reaction to light slightly smaller than L pupil - Respiratory Exam Additional comments: trach in place, dressing clean, dry, intact - GI/Abdominal Exam Additional comments: peg tube in place, dressing clean, dry, intact -Skin Exam bony prominences show mild excoriations, non erythematous non bleeding Assessment and Plan - Assessment and Plan (Free Text) Assessment: This is a 52yo F originally admitted to the ICU for Septic shock 2/2 to PNA/UTI worsened by embolic stroke, cardiac arrest, and anoxic brain injury. Pt is s/p IVC filter. Plan: Agitation - possible causes of weaning trial failure - clonazepam 0.5 daily & trazadone 25 mg HS - monitor for tachy/bradycardia, O2 sat - AST/ALT: 52/292 (down trending) - TSH level: 1.26 (WNL) Septic Shock Pneumonia Urinary Tract Infection - Pt remains afebrile > 72hrs - Trach Aspirate: Psuedomonas - Bronchoscopy by Dr. Lozada (08/23/18) culture showed Pseudomonas aerguinosa - ID Dr. Brock consulted, recs appreciated - HELD Micafungin due to transaminitis - Cefepime 1g q12 IVPB started 08/27 - 08/27 urine culture no growth > 5 days - 08/27 Blood culture no growth > 5 days - 08/25 stool culture - no growth - CXR improved - CT chest pos for pleural effusions Dr Lozada Thoracentesis today Chest Tube inserted Vaginal Bleeding - currently non-bleeding, 72hrs - plan for possible endometrial biopsy - H/H stable in 9s/ 26s - Stable - Off anticoag Acute Ischemic Hepatitis - Possibly secondary to hypotension - Downtrending - Avoid hepatotoxic medications - Hep panel is negative - Abd US shows bilateral pleural effusions, patent portal vein, no hydronephrosis, no GB stones or cholecystitis - Abd/pelv CT shows limited evlauation of possible hepatic vein thrombosis without IV contrast administration. Distended urinary bladder, 1.2 cm soft tissue nodule at the left adrenal gland - GI, Dr. London, evaluated the pt and pt's transaminitis is believed to be likely due to hypotension as well - Rapid decrease in LFTs is good prognosis. Anoxic Encephalopathy - s/p code Blue 07/10 and 07/20 - Pt is not at baseline as per - Continue to monitor - Neurology consulted, recs appreciated - Neg CT head w/o contrast, poor visualization - f/u Dr Pham recs Acute Respiratory Failure - s/p tracheostomy 07/24/18 Dr. Lozada will continue to attempt to wean off of vent. Unsuccessful so far. - Duonebs 3ml Inh Q4 - CXR worsening with pnuemonia possibly contributing to respiratory failure Ventricular Tachycardia NSTEMI Apical Thrombus LLE DVT - Code Blue 07/10: SVT==>VT required amiodarone, magnesium, one shock delivered - Code Blue 07/20: vtach s/p amiodarone, fluid, calcium gluconate, required compressions and shock - Cardiology Dr Francisco on case help appreciated - No cath needed. - Medical management - No chemical anticoagulation in light of bleeding episodes (patient has dysfunction uterine bleeding required blood transfusions; Ob has been consulted earlier -in the hospitalization to inpatient workup)-->recommending heparin 5000 unit subq8 (DVT ppx dose) and aspirin 81mg PO daily; likely thrombus is organized a -month of anticoagulation; risk is due to bleeding against stroke - d/c Propranolol 5mg PO TID (hold SBP<100 and HR<60) - Eliquis d/c bleeding and anemia-->dvt ppx and aspirin - Echo discussed with Dr. Francisco, patient does have residual clot-->aware we cannot anticoagulate given heavy vaginal bleeding; if patient can tolerate possible - aspirin - Pt noted to be tachycardic at 130, likely secondary to fever. Will give Lopressor 2.5 mg IVP x1 dose. - Restarted Propanolol 1 mg IVP Q6H, (hold SBP<100 and HR<60) Diabetes - HgBA1c: 7.8 - Hypoglycemic protocol - Sugars have ranged from 150-200 x 24 hours - Accuchecks Q4H - off Crestor 5mg PO qHS secondary to LFTs Hyperthyroidism? Low TSH, and Free T4 Thyroid Storm - Note Thyroid studies taken before amiodarone was given (please advised this is not amiodarone induced her levels were abnormal prior) - Patient does not have prior thyroid history - Endocrinology (Dr. Gayle) on board help appreciated - Thyroid U/S 07/16/18: showed heterogenous thydroid with multiple nodules bilaterally. She will need outpatient FNA Bx of the complex Left Lobe cyst (please see full report) - Methimazole 20mg PO TID - off Propranolol 5 mg PO TID due to hypotension - Monitor LFTs Anemia Likely Secondary to Chronic Diseases - Iron normal, TIBC low, Iron Saturation normal, Ferritin normal - Stool occult blood negative - B12 normal - Folate Normal - Transfused 1 unit PRBC 07/22/18, 2 unit of PRBC 08/13/18 1 unit on 08/17/18, 1 unit 08/23/18 - Patient has been seen by OB Hospitalist; no contraindication to anticoagulation - Case discussed with salesperson recreational vehicles recommending against eliquis in light of bleeding; recommending for DVT ppx and aspirin Vitamin D deficiency - 50,000 international units once a week (3 doses given so far) - Restart Vitamin D 50,000 IU once a week for 9 weeks (on 08/18/18) LLE DVT - Eliquis 5 mg PO BID d/c 08/17 - s/p IVC filter (08/23/18) Deconditioning - Continue PT/OT - Continue to attempt to wean off of vent Acute on Chronic Renal Failure Resolved - Nephrology (Dr. Hyde) on board--> help appreciated - No indication for HD at this time - Continues to improve Hypernatremia Resolved - 152 today - Discontinue NS IVF PPX - Protonix 40mg IVP BID - Lactobacillus 1 cap PO BID - MVI 1x/day - Vitamin C 1,000 NG 1x/day - s/p Trach and Peg - SCD on Right and contraindicated on Left due to DVT - Peg feedings Continue [facility]moc[facility] at 40cc/hr - PICC Line 07/31/18 - bronchoscopy 08/23 - IVC filter 08/23 dispo: pending CXR tmrw, will consider starting micamine- spoke with Dr Brock and Dr Lozada <Saira Leahy V - Last Filed: 10/24/18 16:43> Objective - Vital Signs/Intake and Output Vital Signs (last 24 hours): Temp Pulse Resp BP Pulse Ox 99.8 F H 90 13 95/54 L 100 10/24/18 13:00 10/24/18 16:00 10/24/18 13:00 10/24/18 13:00 10/24/18 13:00 Intake and Output: 10/24/18 10/24/18 06:59 18:59 Intake Total 540 Output Total 300 Balance 240 - Medications Medications: Current Medications Acetylcysteine (Acetylcysteine 20%) 4 ml INH RQ4 [facility] Last Admin: 10/24/18 16:27 Dose: 4 ml Albuterol/Ipratropium (Duoneb 3 Mg/0.5 Mg (3 Ml) Ud) 3 ml INH RQ4 [facility] Last Admin: 10/24/18 16:27 Dose: 3 ml Ascorbic Acid (Vitamin C 500 Mg Tab) 1,000 mg NG DAILY [facility] Last Admin: 10/24/18 10:42 Dose: 1,000 mg Aspirin (Aspirin Chewable) 81 mg GT DAILY [facility] Last Admin: 10/24/18 10:43 Dose: 81 mg Dextrose (Dextrose 50% Inj) 0 ml IVP .STAT PRN; Protocol PRN Reason: Hypoglycemia Protocol Dextrose (Glutose 15) 0 gm PO .ONCE PRN; Protocol PRN Reason: Hypoglycemia Protocol Furosemide (Lasix) 20 mg IVP ONCE PRN PRN Reason: PLEURAL EFFUSION Last Admin: 10/21/18 21:30 Dose: 20 mg Glucagon (Glucagen Diagnostic Kit) 0 mg IM .STAT PRN; Protocol PRN Reason: Hypoglycemia Protocol Methimazole (Tapazole) 20 mg PO Q8 [facility] Last Admin: 10/24/18 12:59 Dose: 20 mg Midodrine (Proamatine) 10 mg PO TID [facility] Last Admin: 10/24/18 12:59 Dose: 10 mg Modafinil (Provigil) 50 mg PO DAILY [facility] Last Admin: 10/24/18 10:43 Dose: 50 mg Multivitamins (Hexavitamin) 1 tab PEG DAILY [facility] Last Admin: 10/24/18 10:43 Dose: 1 tab Pantoprazole Sodium (Protonix Susp) 40 mg GT Q12H [facility] Last Admin: 10/24/18 10:43 Dose: 40 mg Tamsulosin HCl (Flomax) 0.4 mg PEG DAILY [facility] Last Admin: 10/24/18 10:43 Dose: 0.4 mg Vitamin A (Vitamin A & D Oint Ud Foilpak) 0.5 ea TOP BID [facility] Last Admin: 10/24/18 10:43 Dose: 0.5 ea - Labs Labs: 10/24/18 06:07 10/24/18 06:07 PT 13.3 SECONDS (9.7-12.2) H 10/23/18 06:05 INR 1.2 10/23/18 06:05 APTT 23 SECONDS (21-34) 10/02/18 06:10 Assessment and Plan (1) Septic shock Status: Acute (2) Acute respiratory failure Status: Acute (3) Urinary tract infection Status: Acute (4) Acute renal failure Status: Acute (5) Aspiration pneumonia Status: Acute (6) Diabetes mellitus Status: Chronic (7) Ventricular arrhythmia Status: Acute (8) Hyperthyroidism Status: Acute (9) Anemia Status: Acute (10) Anoxic brain injury Status: Acute (11) Prophylactic measure Status: Acute Attending/Attestation - Attestation I have personally seen and examined this patient.: Yes I have fully participated in the care of the patient.: Yes I have reviewed all pertinent clinical information, including history, physical exam and plan: Yes Notes (Text): This is late computer entry for 09/06/18. I discussed with neurology to re-eval the mental status of the patient given the noted change in her 's behavior. I discussed with pulm; who spoke with patient's in regards to placement of chest tube for pleural effusion noted on chest xray. Continue to follow.
[2018-09-06] MEDS: Pantoprazole 40 mg Susp UD GT SCH ×2 (09:00→21:12)
[2018-09-06] MEDS: Multiple Vitamins Tab PEG SCH (09:00)
[2018-09-06] MEDS: Bacitracin 500 Units/gm Oint Foilpak UD TOP SCH ×2 (09:00→17:50)
[2018-09-06] MEDS: Lactobacillus Acidophilus 500 MU Cap PEG SCH ×2 (09:00→21:11)
[2018-09-06 16:24] LABS: ARTERIAL BLOOD GAS HCO3 24.2 mmol/L (21-28); ARTERIAL BLOOD GAS HEMOGLOBIN 9.3 g/dL (11.7-17.4); ARTERIAL BLOOD GAS O2 SAT 98.3 % (95-98); ARTERIAL BLOOD GAS PCO2 36 mm/Hg (35-45); ARTERIAL BLOOD GAS PH 7.42 (7.35-7.45); ARTERIAL BLOOD GAS PO2 82 mm/Hg (80-100); ARTERIAL BLOOD GAS TCO2 24.5 mmol/L (22-28)
--- NOTE | 2018-09-06 16:30 | RAD ---
HISTORY: s/p chest tube COMPARISON: Chest x-ray performed 09/05/18 TECHNIQUE: Chest, one view. FINDINGS: Tracheostomy tube. Left-sided PICC extends expected location of the cavoatrial junction. Right-sided pleural drainage catheter. LUNGS: Small left pleural effusion and/or consolidation. Mild pulmonary venous congestion. No definite pneumothorax. Please note that chest x-ray has limited sensitivity for the detection of pulmonary masses. CARDIOVASCULAR: Borderline cardiomegaly. No significant atherosclerotic calcification present. OSSEOUS STRUCTURES: Degenerative changes. VISUALIZED UPPER ABDOMEN: Unremarkable. OTHER FINDINGS: None. IMPRESSION: Tracheostomy tube. Left-sided PICC extends expected location of the cavoatrial junction. Right-sided pleural drainage catheter. Small left pleural effusion and/or consolidation. Mild pulmonary venous congestion.
[2018-09-06 17:53] LABS: BODY FLUID TYPE PLEURAL
[2018-09-06 18:24] LABS: BF GROSS APPEARANCE CLEAR (CLEAR)
--- NOTE | 2018-09-06 18:56 | PCM.PROC ---
Procedures Attestation:: I certify that I have explained the specified Operation(s) or Procedure(s), risks, benefits and reasonable alternatives to the Patient and/or other person responsible. The opportunity was given to ask questions and all questions answered - Chest Tube Chest Tube Location: Lateral Chest Right Size of Tube (cm): 10 Chest Tube Procedure: Chlorhexidine Tube Sutured to Skin: Yes Sterile Dressing Applied: Yes Anesthesia: Lidocaine 1% Volume Anesthetic (mls): 5 Incision Made With: #10 blade Post Procedure: sutured to skin, sterile dressing applied [place]: No Tube Drainage: fluid Amount of Initial Drainage: 500 Post Procedure CXR?: Yes Patient Tolerated Procedure: Yes
[2018-09-06 20:03] LABS: BODY FLUID MONO/MACROPHAGE 4 % (0-0)
[2018-09-06] MEDS: traZODone 25 mg Tab GT SCH (21:11)
[2018-09-07] MEDS: Tobramycin 0.3% OPHT SOLN OD SCH ×5 (00:02→23:04)
[2018-09-07] MEDS: (Novolog) Insulin Aspart, Recombinant 100 u/ml 10 ml vial SC SCH ×4 (00:02→18:00)
[2018-09-07] MEDS: Albuterol-Ipratrop 3 mg / 0.5 (3 ml) UD INH SCH ×7 (00:46→23:57)
[2018-09-07] MEDS: Cefepime IV 1 gm in Dextrose 1 GM/50 ML BAG IVPB SCH ×2 (02:14→15:14)
[2018-09-07 05:29] LABS: BASO % 0.6 % (0.0-2.0); EOS % 0.7 % (0.0-4.0); HEMOGLOBIN 8.1 g/dL (11.0-16.0); LYMPH # 1.1 K/uL (1.0-4.3); LYMPH % 16.2 % (20.0-40.0); MEAN CORPUSCULAR HEMOGLOBIN 29.1 pg (27.0-31.0); MEAN CORPUSCULAR HGB CONC 32.7 g/dL (33.0-37.0); MEAN PLATELET VOLUME 9.1 fL (7.2-11.7); MONO # 0.5 K/uL (0.0-0.8); MONO % 7.6 % (0.0-10.0); NEUT # 4.9 K/uL (1.8-7.0); NEUT % 74.9 % (50.0-75.0); RBC 2.78 Mil/uL (3.80-5.20); RED CELL DISTRIBUTION WIDTH 18.9 % (11.5-14.5); WHITE BLOOD COUNT 6.6 K/uL (4.8-10.8)
[2018-09-07 06:37] LABS: ALB/GLOB RATIO 0.7 (1.0-2.1); ALBUMIN 2.5 g/dL (3.5-5.0); ALT/SGPT 121 U/L (9-52); AST/SGOT 49 U/L (14-36); BLOOD UREA NITROGEN 27 mg/dL (7-17); CALCIUM 8.5 mg/dl (8.6-10.4); GFR NON-AFRICAN AMERICAN > 60
[2018-09-07 07:38] LABS: FOLATE > 20.0 ng/mL
--- NOTE | 2018-09-07 07:42 | CP.PCM.PN ---
<Bhanu Villegas - Last Filed: 09/07/18 16:41> Subjective - Date & Time of Evaluation Date of Evaluation: 09/07/18 Time of Evaluation: 07:37 - Subjective Subjective: HOSPITALIST SERVICE Pt seen and examined at bedside, Pt had no acute event overnight as per nursing. Pt tolerated thoracentesis well yesterday as per ICU team. Objective - Vital Signs/Intake and Output Vital Signs (last 24 hours): Temp Pulse Resp BP Pulse Ox 98.5 F 91 H 15 107/48 L 99 09/07/18 04:00 09/07/18 04:00 09/07/18 04:00 09/07/18 04:00 09/07/18 04:00 Intake and Output: 09/07/18 09/07/18 06:59 18:59 Intake Total 670 Output Total 221 Balance 449 - Medications Medications: Current Medications Albuterol/Ipratropium (Duoneb 3 Mg/0.5 Mg (3 Ml) Ud) 3 ml INH Q4 [facility] Last Admin: 09/07/18 07:31 Dose: 3 ml Ascorbic Acid (Vitamin C 500 Mg Tab) 1,000 mg NG DAILY [facility] Last Admin: 09/06/18 09:00 Dose: 1,000 mg Bacitracin (Bacitracin) 1 ea TOP BID [facility] Last Admin: 09/06/18 17:50 Dose: 1 ea Dextrose (Dextrose 50% Inj) 0 ml IVP .STAT PRN; Protocol PRN Reason: Hypoglycemia Protocol Dextrose (Glutose 15) 0 gm PO .ONCE PRN; Protocol PRN Reason: Hypoglycemia Protocol Ergocalciferol (Drisdol 50,000 Intl Units Cap) 1 cap GT Q7D [facility] Stop: 10/06/18 19:16 Last Admin: 09/01/18 18:57 Dose: 1 cap Glucagon (Glucagen Diagnostic Kit) 0 mg IM .STAT PRN; Protocol PRN Reason: Hypoglycemia Protocol Cefepime HCl (Maxipime Iv 1 Gm Premix) 1 gm in 50 mls @ 100 mls/hr IVPB Q12H [facility]; Protocol Last Admin: 09/07/18 02:14 Dose: 100 mls/hr Insulin Aspart (Novolog) 0 unit SC Q6 [facility]; Protocol Last Admin: 09/07/18 05:17 Dose: Not Given Insulin Glargine (Lantus) 15 unit SC Q12 [facility] Last Admin: 08/23/18 10:39 Dose: Not Given Lactobacillus Acidophilus (Bacid Acidophilus) 1 cap PEG Q12 [facility] Last Admin: 09/06/18 21:11 Dose: 1 cap Methimazole (Tapazole) 20 mg PO Q8 [facility] Last Admin: 09/07/18 05:16 Dose: 20 mg Multivitamins (Hexavitamin) 1 tab PEG DAILY [facility] Last Admin: 09/06/18 09:00 Dose: 1 tab Pantoprazole Sodium (Protonix Susp) 40 mg GT Q12H [facility] Last Admin: 09/06/18 21:12 Dose: 40 mg Tobramycin Sulfate (Tobrex 0.3% Ophth Soln) 2 drop OD Q6H [facility] Last Admin: 09/07/18 05:16 Dose: 2 drop Trazodone HCl (Desyrel) 25 mg GT HS [facility] Last Admin: 09/06/18 21:11 Dose: 25 mg - Labs Labs: 09/07/18 05:06 09/07/18 05:06 PT 11.9 SECONDS (9.7-12.2) 09/04/18 06:22 INR 1.1 09/04/18 06:22 APTT 29 SECONDS (21-34) 09/02/18 05:48 - Additional Findings Additional findings: - Constitutional Appears: Chronically Ill - Head Exam Head Exam: NORMAL INSPECTION - Eye Exam Additional comments: R pupil sluggish reaction to light slightly smaller than L pupil - Respiratory Exam Additional comments: trach in place, dressing clean, dry, intact - GI/Abdominal Exam Additional comments: peg tube in place, dressing clean, dry, intact -Skin Exam bony prominences show mild excoriations, non erythematous non bleeding Assessment and Plan - Assessment and Plan (Free Text) Assessment: Assessment and Plan - Assessment and Plan (Free Text) Assessment: This is a 52yo F originally admitted to the ICU for Septic shock 2/2 to PNA/UTI worsened by embolic stroke, cardiac arrest, and anoxic brain injury. Pt is s/p IVC filter. Plan: Agitation - possible causes of weaning trial failure - clonazepam 0.5 daily & trazadone 25 mg HS - monitor for tachy/bradycardia, O2 sat - AST/ALT: 52/292 (down trending) - TSH level: 1.26 (WNL) Septic Shock Pneumonia Urinary Tract Infection - Pt remains afebrile > 72hrs - Trach Aspirate: Psuedomonas - Bronchoscopy by Dr. Lozada (08/23/18) culture showed Pseudomonas aerguinosa - ID Dr. Brock consulted, recs appreciated - HELD Micafungin due to transaminitis - Cefepime 1g q12 IVPB started 08/27 - 08/27 urine culture no growth > 5 days - 08/27 Blood culture no growth > 5 days - 08/25 stool culture - no growth - CXR improved - CT chest pos for pleural effusions Dr Lozada Thoracentesis today Chest Tube inserted- DRAINED [id number] Pleural fluid shows neutrophillic and high RBCs Vaginal Bleeding - currently non-bleeding, 72hrs - plan for possible endometrial biopsy - H/H stable in 9s/ 26s - Stable - Off anticoag Acute Ischemic Hepatitis - Possibly secondary to hypotension - Downtrending - Avoid hepatotoxic medications - Hep panel is negative - Abd US shows bilateral pleural effusions, patent portal vein, no hydronephrosis, no GB stones or cholecystitis - Abd/pelv CT shows limited evlauation of possible hepatic vein thrombosis without IV contrast administration. Distended urinary bladder, 1.2 cm soft tissue nodule at the left adrenal gland - GI, Dr. London, evaluated the pt and pt's transaminitis is believed to be likely due to hypotension as well - Rapid decrease in LFTs is good prognosis. Anoxic Encephalopathy - s/p code Blue 07/10 and 07/20 - Pt is not at baseline as per - Continue to monitor - Neurology consulted, recs appreciated - Neg CT head w/o contrast, poor visualization - f/u Dr Pham recs Acute Respiratory Failure - s/p tracheostomy 07/24/18 Dr. Lozada will continue to attempt to wean off of vent. Unsuccessful so far. - Duonebs 3ml Inh Q4 - CXR worsening with pnuemonia possibly contributing to respiratory failure Ventricular Tachycardia NSTEMI Apical Thrombus LLE DVT - Code Blue 07/10: SVT==>VT required amiodarone, magnesium, one shock delivered - Code Blue 07/20: vtach s/p amiodarone, fluid, calcium gluconate, required compressions and shock - Cardiology Dr Francisco on case help appreciated - No cath needed. - Medical management - No chemical anticoagulation in light of bleeding episodes (patient has dysfunc tion uterine bleeding required blood transfusions; Ob has been consulted earlier -in the hospitalization to inpatient workup)-->recommending heparin 5000 unit subq8 (DVT ppx dose) and aspirin 81mg PO daily; likely thrombus is organized a - month of anticoagulation; risk is due to bleeding against stroke - d/c Propranolol 5mg PO TID (hold SBP<100 and HR<60) - Eliquis d/c bleeding and anemia-->dvt ppx and aspirin - Echo discussed with Dr. Francisco, patient does have residual clot-->aware we cannot anticoagulate given heavy vaginal bleeding; if patient can tolerate possible - aspirin - Pt noted to be tachycardic at 130, likely secondary to fever. Will give Lopressor 2.5 mg IVP x1 dose. - Restarted Propanolol 1 mg IVP Q6H, (hold SBP<100 and HR<60) Diabetes - HgBA1c: 7.8 - Hypoglycemic protocol - Sugars have ranged from 150-200 x 24 hours - Accuchecks Q4H - off Crestor 5mg PO qHS secondary to LFTs Hyperthyroidism? Low TSH, and Free T4 Thyroid Storm - Note Thyroid studies taken before amiodarone was given (please advised this is not amiodarone induced her levels were abnormal prior) - Patient does not have prior thyroid history - Endocrinology (Dr. Gayle) on board help appreciated - Thyroid U/S 07/16/18: showed heterogenous thydroid with multiple nodules bilaterally. She will need outpatient FNA Bx of the complex Left Lobe cyst (please see full report) - Methimazole 20mg PO TID - off Propranolol 5 mg PO TID due to hypotension - Monitor LFTs Anemia Likely Secondary to Chronic Diseases - Iron normal, TIBC low, Iron Saturation normal, Ferritin normal - Stool occult blood negative - B12 normal - Folate Normal - Transfused 1 unit PRBC 07/22/18, 2 unit of PRBC 08/13/18 1 unit on 08/17/18, 1 unit 08/23/18 - Patient has been seen by OB Hospitalist; no contraindication to anticoagulation - Case discussed with director information recommending against eliquis in light of bleeding; recommending for DVT ppx and aspirin Vitamin D deficiency - 50,000 international units once a week (3 doses given so far) - Restart Vitamin D 50,000 IU once a week for 9 weeks (on 08/18/18) LLE DVT - Eliquis 5 mg PO BID d/c 08/17 - s/p IVC filter (08/23/18) Deconditioning - Continue PT/OT - Continue to attempt to wean off of vent Acute on Chronic Renal Failure Resolved - Nephrology (Dr. Hyde) on board--> help appreciated - No indication for HD at this time - Continues to improve Hypernatremia Resolved - 152 today - Discontinue NS IVF PPX - Protonix 40mg IVP BID - Lactobacillus 1 cap PO BID - MVI 1x/day - Vitamin C 1,000 NG 1x/day - s/p Trach and Peg - SCD on Right and contraindicated on Left due to DVT - Peg feedings Continue Pulmocare at 40cc/hr - PICC Line 07/31/18 - bronchoscopy 08/23 - IVC filter 08/23 dispo:pT TO GO FOR MRI tmrw at [place] 1pm <Saira Leahy V - Last Filed: 10/24/18 16:43> Objective - Vital Signs/Intake and Output Vital Signs (last 24 hours): Temp Pulse Resp BP Pulse Ox 99.8 F H 90 13 95/54 L 100 10/24/18 13:00 10/24/18 16:00 10/24/18 13:00 10/24/18 13:00 10/24/18 13:00 Intake and Output: 10/24/18 10/24/18 06:59 18:59 Intake Total 540 Output Total 300 Balance 240 - Medications Medications: Current Medications Acetylcysteine (Acetylcysteine 20%) 4 ml INH RQ4 [facility] Last Admin: 10/24/18 16:27 Dose: 4 ml Albuterol/Ipratropium (Duoneb 3 Mg/0.5 Mg (3 Ml) Ud) 3 ml INH RQ4 [facility] Last Admin: 10/24/18 16:27 Dose: 3 ml Ascorbic Acid (Vitamin C 500 Mg Tab) 1,000 mg NG DAILY [facility] Last Admin: 10/24/18 10:42 Dose: 1,000 mg Aspirin (Aspirin Chewable) 81 mg GT DAILY [facility] Last Admin: 10/24/18 10:43 Dose: 81 mg Dextrose (Dextrose 50% Inj) 0 ml IVP .STAT PRN; Protocol PRN Reason: Hypoglycemia Protocol Dextrose (Glutose 15) 0 gm PO .ONCE PRN; Protocol PRN Reason: Hypoglycemia Protocol Furosemide (Lasix) 20 mg IVP ONCE PRN PRN Reason: PLEURAL EFFUSION Last Admin: 10/21/18 21:30 Dose: 20 mg Glucagon (Glucagen Diagnostic Kit) 0 mg IM .STAT PRN; Protocol PRN Reason: Hypoglycemia Protocol Methimazole (Tapazole) 20 mg PO Q8 [facility] Last Admin: 10/24/18 12:59 Dose: 20 mg Midodrine (Proamatine) 10 mg PO TID [facility] Last Admin: 10/24/18 12:59 Dose: 10 mg Modafinil (Provigil) 50 mg PO DAILY [facility] Last Admin: 10/24/18 10:43 Dose: 50 mg Multivitamins (Hexavitamin) 1 tab PEG DAILY [facility] Last Admin: 10/24/18 10:43 Dose: 1 tab Pantoprazole Sodium (Protonix Susp) 40 mg GT Q12H [facility] Last Admin: 10/24/18 10:43 Dose: 40 mg Tamsulosin HCl (Flomax) 0.4 mg PEG DAILY [facility] Last Admin: 10/24/18 10:43 Dose: 0.4 mg Vitamin A (Vitamin A & D Oint Ud Foilpak) 0.5 ea TOP BID [facility] Last Admin: 10/24/18 10:43 Dose: 0.5 ea - Labs Labs: 10/24/18 06:07 10/24/18 06:07 PT 13.3 SECONDS (9.7-12.2) H 10/23/18 06:05 INR 1.2 10/23/18 06:05 APTT 23 SECONDS (21-34) 10/02/18 06:10 Assessment and Plan (1) Septic shock Status: Acute (2) Acute respiratory failure Status: Acute (3) Urinary tract infection Status: Acute (4) Acute renal failure Status: Acute (5) Aspiration pneumonia Status: Acute (6) Diabetes mellitus Status: Chronic (7) Ventricular arrhythmia Status: Acute (8) Hyperthyroidism Status: Acute (9) Anemia Status: Acute (10) Anoxic brain injury Status: Acute (11) Prophylactic measure Status: Acute Attending/Attestation - Attestation I have personally seen and examined this patient.: Yes I have fully participated in the care of the patient.: Yes I have reviewed all pertinent clinical information, including history, physical exam and plan: Yes
--- NOTE | 2018-09-07 10:35 | US ---
Limited right pleural effusion ultrasound HISTORY: Right pleural effusion. COMPARISON: X-ray dated 09/05/2018 FINDINGS: Right pleural effusion was marked for thoracentesis to be performed by Dr. Lozada. Impression: Right pleural effusion was marked for thoracentesis to be performed by Dr. Lozada.
[2018-09-07] MEDS: Pantoprazole 40 mg Susp UD GT SCH ×2 (10:37→23:00)
[2018-09-07] MEDS: Lactobacillus Acidophilus 500 MU Cap PEG SCH ×2 (10:38→22:55)
[2018-09-07] MEDS: Bacitracin 500 Units/gm Oint Foilpak UD TOP SCH ×2 (10:38→17:04)
[2018-09-07] MEDS: Multiple Vitamins Tab PEG SCH (10:38)
--- NOTE | 2018-09-07 13:49 | RAD ---
Date of service: 09/07/2018 HISTORY: right chest tube COMPARISON: 09/06/2018 FINDINGS: LUNGS: Interval vague increased opacity in each hilar location left greater than right interval increased pulmonary venous congestion with or without concomitant possible developing left perihilar infiltrate are considerations. Left hemidiaphragm obliterated as before. Left pleural effusion with compressive atelectasis and/or infiltrate here compatible with this appearance no interval change the left lung base noted. The right pleural drainage catheter projecting over the right hemidiaphragm is as before. Tracheostomy tube in place as before. PLEURA: Inferred small left pleural effusion with probable compressive atelectasis left lung base. No pneumothorax appreciated. Trace biapical pleural thickening-similar CARDIOVASCULAR: There is presence of aortic atherosclerotic calcification on x-ray. Cardiomegaly-more conspicuous. Left subclavian PICC line tip in right atrium-similar appearance. Correlate clinically. Interval increased pulmonary venous congestion suspect. OSSEOUS STRUCTURES: No significant abnormalities. VISUALIZED UPPER ABDOMEN: Normal. OTHER FINDINGS: None. IMPRESSION: Interval increased pulmonary venous congestion-perihilar. Mild cardiomegaly more conspicuous currently. Persistent left hemidiaphragm obscuration-small left pleural effusion with passive compressive atelectasis here inferred. Concomitant infiltrate here not excluded. Tracheostomy tube, right pleural pigtail drainage catheter and left subclavian PICC line positions as above.
[2018-09-07] MEDS: traZODone 25 mg Tab GT SCH (23:00)
[2018-09-08] MEDS: (Novolog) Insulin Aspart, Recombinant 100 u/ml 10 ml vial SC SCH ×4 (00:10→18:53)
[2018-09-08] MEDS: Cefepime IV 1 gm in Dextrose 1 GM/50 ML BAG IVPB SCH ×2 (03:00→16:36)
[2018-09-08] MEDS: Albuterol-Ipratrop 3 mg / 0.5 (3 ml) UD INH SCH ×5 (03:09→20:02)
[2018-09-08] MEDS: Tobramycin 0.3% OPHT SOLN OD SCH ×3 (06:01→17:10)
[2018-09-08 06:36] LABS: BASO # 0.1 K/uL (0.0-0.2); EOS # 0.1 K/uL (0.0-0.7); EOS % 2.7 % (0.0-4.0); HEMOGLOBIN 8.5 g/dL (11.0-16.0); LYMPH % 20.3 % (20.0-40.0); MEAN CELL VOLUME 90.8 fL (81.0-99.0); MEAN PLATELET VOLUME 9.2 fL (7.2-11.7); MONO # 0.5 K/uL (0.0-0.8); MONO % 8.8 % (0.0-10.0); NEUT # 3.4 K/uL (1.8-7.0); NEUT % 67.2 % (50.0-75.0); RBC 2.83 Mil/uL (3.80-5.20); WHITE BLOOD COUNT 5.1 K/uL (4.8-10.8)
[2018-09-08 07:03] LABS: ALB/GLOB RATIO 0.8 (1.0-2.1); ALBUMIN 2.7 g/dL (3.5-5.0); ALT/SGPT 104 U/L (9-52); AST/SGOT 46 U/L (14-36); BLOOD UREA NITROGEN 30 mg/dL (7-17); CALCIUM 8.5 mg/dl (8.6-10.4); GFR NON-AFRICAN AMERICAN > 60
[2018-09-08] MEDS: Lactobacillus Acidophilus 500 MU Cap PEG SCH ×2 (10:24→21:16)
[2018-09-08] MEDS: Bacitracin 500 Units/gm Oint Foilpak UD TOP SCH ×2 (10:24→17:07)
[2018-09-08] MEDS: Pantoprazole 40 mg Susp UD GT SCH ×2 (10:25→21:17)
[2018-09-08] MEDS: Multiple Vitamins Tab PEG SCH (10:25)
--- NOTE | 2018-09-08 18:32 | RAD ---
Date of service: 09/08/2018 HISTORY: Chest tube blood, checking for malposition COMPARISON: Comparison chest 09/07/2018 FINDINGS: In situ tracheostomy tube in good position.. Also again noted is a pigtail chest tube catheter which overlies the right upper quadrant of the abdomen likely within the posterolateral sulcus of the right lung LUNGS: Diffuse bilateral hazy opacities could represent of pulmonary venous congestive changes or bilateral infiltrates. Bilateral effusions left larger than right PLEURA: As above. No pneumothorax apparent. CARDIOVASCULAR: No aortic atherosclerotic calcification present. The heart remains enlarged.. OSSEOUS STRUCTURES: No significant abnormalities. VISUALIZED UPPER ABDOMEN: Normal. OTHER FINDINGS: None. IMPRESSION: Tracheostomy tube and right-sided chest tube as above. Diffuse bilateral hazy opacities could represent of pulmonary venous congestive changes or bilateral infiltrates. Bilateral effusions left larger than right
--- NOTE | 2018-09-08 18:47 | CP.PCM.PN ---
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 As per nursing, no acute events overnight. Chest tube draining 280cc, total almost 2L serosang. afebrile. To go for MRI in [place] today at 1pm Objective - Vital Signs/Intake and Output Vital Signs (last 24 hours): Temp Pulse Resp BP Pulse Ox 98.4 F 95 H 20 132/72 100 09/08/18 12:00 09/08/18 12:00 09/08/18 12:00 09/08/18 12:00 09/08/18 12:00 Intake and Output: 09/08/18 09/08/18 06:59 18:59 Intake Total 590 Output Total 80 Balance 510 - Medications Medications: Current Medications Albuterol/Ipratropium (Duoneb 3 Mg/0.5 Mg (3 Ml) Ud) 3 ml INH Q4 [facility] Last Admin: 09/08/18 11:00 Dose: 3 ml Ascorbic Acid (Vitamin C 500 Mg Tab) 1,000 mg NG DAILY [facility] Last Admin: 09/08/18 10:25 Dose: 1,000 mg Bacitracin (Bacitracin) 1 ea TOP BID [facility] Last Admin: 09/08/18 17:07 Dose: 1 ea Dextrose (Dextrose 50% Inj) 0 ml IVP .STAT PRN; Protocol PRN Reason: Hypoglycemia Protocol Dextrose (Glutose 15) 0 gm PO .ONCE PRN; Protocol PRN Reason: Hypoglycemia Protocol Ergocalciferol (Drisdol 50,000 Intl Units Cap) 1 cap GT Q7D [facility] Stop: 10/06/18 19:16 Last Admin: 09/01/18 18:57 Dose: 1 cap Glucagon (Glucagen Diagnostic Kit) 0 mg IM .STAT PRN; Protocol PRN Reason: Hypoglycemia Protocol Cefepime HCl (Maxipime Iv 1 Gm Premix) 1 gm in 50 mls @ 100 mls/hr IVPB Q12H [facility]; Protocol Last Admin: 09/08/18 16:36 Dose: 100 mls/hr Insulin Aspart (Novolog) 0 unit SC Q6 [facility]; Protocol Last Admin: 09/08/18 12:19 Dose: Not Given Insulin Glargine (Lantus) 15 unit SC Q12 [facility] Last Admin: 08/23/18 10:39 Dose: Not Given Lactobacillus Acidophilus (Bacid Acidophilus) 1 cap PEG Q12 [facility] Last Admin: 09/08/18 10:24 Dose: 1 cap Methimazole (Tapazole) 20 mg PO Q8 [facility] Last Admin: 09/08/18 17:09 Dose: 20 mg Multivitamins (Hexavitamin) 1 tab PEG DAILY [facility] Last Admin: 09/08/18 10:25 Dose: 1 tab Pantoprazole Sodium (Protonix Susp) 40 mg GT Q12H [facility] Last Admin: 09/08/18 10:25 Dose: 40 mg Tobramycin Sulfate (Tobrex 0.3% Oph Soln) 2 drop OD Q6H [facility] Last Admin: 09/08/18 17:10 Dose: 2 drop Trazodone HCl (Desyrel) 25 mg GT HS [facility] Last Admin: 09/07/18 23:00 Dose: 25 mg - Labs Labs: 09/08/18 06:22 09/08/18 06:22 PT 11.9 SECONDS (9.7-12.2) 09/04/18 06:22 INR 1.1 09/04/18 06:22 APTT 29 SECONDS (21-34) 09/02/18 05:48 - Additional Findings Additional findings: - Constitutional Appears: Chronically Ill - Head Exam Head Exam: NORMAL INSPECTION - Eye Exam Additional comments: R pupil sluggish reaction to light slightly smaller than L pupil - Respiratory Exam Additional comments: trach in place, dressing clean, dry, intact - GI/Abdominal Exam Additional comments: peg tube in place, dressing clean, dry, intact -Skin Exam bony prominences show mild excoriations, non erythematous non bleeding Assessment and Plan - Assessment and Plan (Free Text) Assessment: This is a 52yo F originally admitted to the ICU for Septic shock 2/2 to PNA/UTI worsened by embolic stroke, cardiac arrest, and anoxic brain injury. Pt is s/p IVC filter. Plan: Agitation - possible causes of weaning trial failure - clonazepam 0.5 daily & trazadone 25 mg HS - monitor for tachy/bradycardia, O2 sat - AST/ALT: 52/292 (down trending) - TSH level: 1.26 (WNL) Septic Shock Pneumonia Urinary Tract Infection - Pt remains afebrile > 72hrs - Trach Aspirate: Psuedomonas - Bronchoscopy by Dr. Lozada (08/23/18) culture showed Pseudomonas aerguinosa - ID Dr. Brock consulted, recs appreciated - HELD Micafungin due to transaminitis - Cefepime 1g q12 IVPB started 08/27 - 08/27 urine culture no growth > 5 days - 08/27 Blood culture no growth > 5 days - 08/25 stool culture - no growth - CXR improved - CT chest pos for pleural effusions Dr Lozada Thoracentesis today Chest Tube inserted- DRAINED 1800CC total Pleural fluid shows neutrophillic and high RBCs - Chest tube currently draining light red bloody fluid. -f/u CXR to r/o malpositioning of chest tube -MRI Brain: limited study due to motion artifact. Possible hydrocephalus Vaginal Bleeding - currently non-bleeding, 72hrs - plan for possible endometrial biopsy - H/H stable in 9s/ 26s - Stable - Off anticoag Acute Ischemic Hepatitis - Possibly secondary to hypotension - Downtrending - Avoid hepatotoxic medications - Hep panel is negative - Abd US shows bilateral pleural effusions, patent portal vein, no hydronephrosis, no GB stones or cholecystitis - Abd/pelv CT shows limited evlauation of possible hepatic vein thrombosis without IV contrast administration. Distended urinary bladder, 1.2 cm soft tissue nodule at the left adrenal gland - GI, Dr. London, evaluated the pt and pt's transaminitis is believed to be likely due to hypotension as well - Rapid decrease in LFTs is good prognosis. Anoxic Encephalopathy - s/p code Blue 07/10 and 07/20 - Pt is not at baseline as per - Continue to monitor - Neurology consulted, recs appreciated - Neg CT head w/o contrast, poor visualization - f/u Dr Pham recs Acute Respiratory Failure - s/p tracheostomy 07/24/18 Dr. Lozada will continue to attempt to wean off of vent. Unsuccessful so far. - Duonebs 3ml Inh Q4 - CXR worsening with pnuemonia possibly contributing to respiratory failure Ventricular Tachycardia NSTEMI Apical Thrombus LLE DVT - Code Blue 07/10: SVT==>VT required amiodarone, magnesium, one shock delivered - Code Blue 07/20: vtach s/p amiodarone, fluid, calcium gluconate, required comp ressions and shock - Cardiology Dr Francisco on case help appreciated - No cath needed. - Medical management - No chemical anticoagulation in light of bleeding episodes (patient has dysfunction uterine bleeding required blood transfusions; Ob has been consulted earlier -in the hospitalization to inpatient workup)-->recommending heparin 5000 unit subq8 (DVT ppx dose) and aspirin 81mg PO daily; likely thrombus is organized a -month of anticoagulation; risk is due to bleeding against stroke - d/c Propranolol 5mg PO TID (hold SBP<100 and HR<60) - Eliquis d/c bleeding and anemia-->dvt ppx and aspirin - Echo discussed with Dr. Francisco, patient does have residual clot-->aware we cannot anticoagulate given heavy vaginal bleeding; if patient can tolerate possible - aspirin - Pt noted to be tachycardic at 130, likely secondary to fever. Will give Lopressor 2.5 mg IVP x1 dose. - Restarted Propanolol 1 mg IVP Q6H, (hold SBP<100 and HR<60) Diabetes - HgBA1c: 7.8 - Hypoglycemic protocol - Sugars have ranged from 150-200 x 24 hours - Accuchecks Q4H - off Crestor 5mg PO qHS secondary to LFTs Hyperthyroidism? Low TSH, and Free T4 Thyroid Storm - Note Thyroid studies taken before amiodarone was given (please advised this is not amiodarone induced her levels were abnormal prior) - Patient does not have prior thyroid history - Endocrinology (Dr. Gayle) on board help appreciated - Thyroid U/S 07/16/18: showed heterogenous thydroid with multiple nodules bi laterally. She will need outpatient FNA Bx of the complex Left Lobe cyst (please see full report) - Methimazole 20mg PO TID - off Propranolol 5 mg PO TID due to hypotension - Monitor LFTs Anemia Likely Secondary to Chronic Diseases - Iron normal, TIBC low, Iron Saturation normal, Ferritin normal - Stool occult blood negative - B12 normal - Folate Normal - Transfused 1 unit PRBC 07/22/18, 2 unit of PRBC 08/13/18 1 unit on 08/17/18, 1 unit 08/23/18 - Patient has been seen by OB Hospitalist; no contraindication to anticoagulation - Case discussed with mothers helper recommending against eliquis in light of bleeding; recommending for DVT ppx and aspirin Vitamin D deficiency - 50,000 international units once a week (3 doses given so far) - Restart Vitamin D 50,000 IU once a week for 9 weeks (on 08/18/18) LLE DVT - Eliquis 5 mg PO BID d/c 08/17 - s/p IVC filter (08/23/18) Deconditioning - Continue PT/OT - Continue to attempt to wean off of vent Acute on Chronic Renal Failure Resolved - Nephrology (Dr. Hyde) on board--> help appreciated - No indication for HD at this time - Continues to improve Hypernatremia Resolved - 152 today - Discontinue NS IVF PPX - Protonix 40mg IVP BID - Lactobacillus 1 cap PO BID - MVI 1x/day - Vitamin C 1,000 NG 1x/day - s/p Trach and Peg - SCD on Right and contraindicated on Left due to DVT - Peg feedings Continue Pulmocare at 40cc/hr - PICC Line 07/31/18 - bronchoscopy 08/23 - IVC filter 08/23 dispo:Pt returned from [facility] for [place], chest tube draining bloody output, light red. <Saira Leahy V - Last Filed: 10/24/18 16:45> Objective - Vital Signs/Intake and Output Vital Signs (last 24 hours): Temp Pulse Resp BP Pulse Ox 99.8 F H 90 13 95/54 L 100 10/24/18 13:00 10/24/18 16:00 10/24/18 13:00 10/24/18 13:00 10/24/18 13:00 Intake and Output: 10/24/18 10/24/18 06:59 18:59 Intake Total 540 Output Total 300 Balance 240 - Medications Medications: Current Medications Acetylcysteine (Acetylcysteine 20%) 4 ml INH RQ4 [facility] Last Admin: 10/24/18 16:27 Dose: 4 ml Albuterol/Ipratropium (Duoneb 3 Mg/0.5 Mg (3 Ml) Ud) 3 ml INH RQ4 [facility] Last Admin: 10/24/18 16:27 Dose: 3 ml Ascorbic Acid (Vitamin C 500 Mg Tab) 1,000 mg NG DAILY [facility] Last Admin: 10/24/18 10:42 Dose: 1,000 mg Aspirin (Aspirin Chewable) 81 mg GT DAILY [facility] Last Admin: 10/24/18 10:43 Dose: 81 mg Dextrose (Dextrose 50% Inj) 0 ml IVP .STAT PRN; Protocol PRN Reason: Hypoglycemia Protocol Dextrose (Glutose 15) 0 gm PO .ONCE PRN; Protocol PRN Reason: Hypoglycemia Protocol Furosemide (Lasix) 20 mg IVP ONCE PRN PRN Reason: PLEURAL EFFUSION Last Admin: 10/21/18 21:30 Dose: 20 mg Glucagon (Glucagen Diagnostic Kit) 0 mg IM .STAT PRN; Protocol PRN Reason: Hypoglycemia Protocol Methimazole (Tapazole) 20 mg PO Q8 [facility] Last Admin: 10/24/18 12:59 Dose: 20 mg Midodrine (Proamatine) 10 mg PO TID [facility] Last Admin: 10/24/18 12:59 Dose: 10 mg Modafinil (Provigil) 50 mg PO DAILY [facility] Last Admin: 10/24/18 10:43 Dose: 50 mg Multivitamins (Hexavitamin) 1 tab PEG DAILY [facility] Last Admin: 10/24/18 10:43 Dose: 1 tab Pantoprazole Sodium (Protonix Susp) 40 mg GT Q12H [facility] Last Admin: 10/24/18 10:43 Dose: 40 mg Tamsulosin HCl (Flomax) 0.4 mg PEG DAILY [facility] Last Admin: 10/24/18 10:43 Dose: 0.4 mg Vitamin A (Vitamin A & D Oint Ud Foilpak) 0.5 ea TOP BID [facility] Last Admin: 10/24/18 10:43 Dose: 0.5 ea - Labs Labs: 10/24/18 06:07 10/24/18 06:07 PT 13.3 SECONDS (9.7-12.2) H 10/23/18 06:05 INR 1.2 10/23/18 06:05 APTT 23 SECONDS (21-34) 10/02/18 06:10 Assessment and Plan (1) Septic shock Status: Acute (2) Acute respiratory failure Status: Acute (3) Urinary tract infection Status: Acute (4) Acute renal failure Status: Acute (5) Aspiration pneumonia Status: Acute (6) Diabetes mellitus Status: Chronic (7) Ventricular arrhythmia Status: Acute (8) Hyperthyroidism Status: Acute (9) Anemia Status: Acute (10) Anoxic brain injury Status: Acute (11) Prophylactic measure Status: Acute Attending/Attestation - Attestation I have personally seen and examined this patient.: Yes I have fully participated in the care of the patient.: Yes I have reviewed all pertinent clinical information, including history, physical exam and plan: Yes Notes (Text): this is late computer entry for 09/08/18. Patient is going for Brain MRI today. We have removed her nose ring given it would be a contraindication to complete the MRI which the has allowed us to.
[2018-09-08] MEDS: Ergocalciferol 50,000 Intl Units Cap GT SCH (18:54)
[2018-09-08] MEDS: traZODone 25 mg Tab GT SCH (21:14)
[2018-09-09] MEDS: Tobramycin 0.3% OPHT SOLN OD SCH ×4 (00:08→18:02)
[2018-09-09] MEDS: (Novolog) Insulin Aspart, Recombinant 100 u/ml 10 ml vial SC SCH ×4 (00:08→18:00)
[2018-09-09] MEDS: Albuterol-Ipratrop 3 mg / 0.5 (3 ml) UD INH SCH ×6 (00:40→19:07)
[2018-09-09] MEDS: Cefepime IV 1 gm in Dextrose 1 GM/50 ML BAG IVPB SCH ×2 (02:30→15:33)
[2018-09-09 05:47] LABS: BASO % 0.7 % (0.0-2.0); EOS # 0.2 K/uL (0.0-0.7); EOS % 2.7 % (0.0-4.0); LYMPH # 1.2 K/uL (1.0-4.3); LYMPH % 20.1 % (20.0-40.0); MEAN CORPUSCULAR HEMOGLOBIN 29.7 pg (27.0-31.0); MEAN CORPUSCULAR HGB CONC 33.6 g/dL (33.0-37.0); MEAN PLATELET VOLUME 8.6 fL (7.2-11.7); MONO # 0.4 K/uL (0.0-0.8); NEUT # 4.2 K/uL (1.8-7.0); NEUT % 69.5 % (50.0-75.0); RBC 3.03 Mil/uL (3.80-5.20); RED CELL DISTRIBUTION WIDTH 18.9 % (11.5-14.5); WHITE BLOOD COUNT 6.1 K/uL (4.8-10.8)
[2018-09-09 05:49] LABS: MEAN CELL VOLUME 88.4 fL (81.0-99.0)
[2018-09-09 06:21] LABS: ALBUMIN 2.8 g/dL (3.5-5.0); BLOOD UREA NITROGEN 32 mg/dL (7-17); CALCIUM 8.6 mg/dl (8.6-10.4); GFR NON-AFRICAN AMERICAN > 60
[2018-09-09 06:22] LABS: ALB/GLOB RATIO 0.8 (1.0-2.1); ALT/SGPT 86 U/L (9-52); AST/SGOT 41 U/L (14-36)
--- NOTE | 2018-09-09 08:36 | CP.PCM.PN ---
Subjective - Date & Time of Evaluation Date of Evaluation: 09/09/18 Time of Evaluation: 08:35 - Subjective Subjective: Medical Attending Note: Patient seen and examined. not present at bedside. Unable to ROS given clinical condition. Objective - Vital Signs/Intake and Output Vital Signs (last 24 hours): Temp Pulse Resp BP Pulse Ox 98.5 F 100 H 21 120/62 99 09/09/18 04:00 09/09/18 04:00 09/09/18 04:00 09/09/18 04:00 09/09/18 04:00 Intake and Output: 09/09/18 09/09/18 06:59 18:59 Intake Total 650 Output Total 35 Balance 615 - Medications Medications: Current Medications Albuterol/Ipratropium (Duoneb 3 Mg/0.5 Mg (3 Ml) Ud) 3 ml INH Q4 [facility] Last Admin: 09/09/18 07:36 Dose: 3 ml Ascorbic Acid (Vitamin C 500 Mg Tab) 1,000 mg NG DAILY [facility] Last Admin: 09/08/18 10:25 Dose: 1,000 mg Bacitracin (Bacitracin) 1 ea TOP BID [facility] Last Admin: 09/08/18 17:07 Dose: 1 ea Dextrose (Dextrose 50% Inj) 0 ml IVP .STAT PRN; Protocol PRN Reason: Hypoglycemia Protocol Dextrose (Glutose 15) 0 gm PO .ONCE PRN; Protocol PRN Reason: Hypoglycemia Protocol Ergocalciferol (Drisdol 50,000 Intl Units Cap) 1 cap GT Q7D [facility] Stop: 10/06/18 19:16 Last Admin: 09/08/18 18:54 Dose: 1 cap Glucagon (Glucagen Diagnostic Kit) 0 mg IM .STAT PRN; Protocol PRN Reason: Hypoglycemia Protocol Cefepime HCl (Maxipime Iv 1 Gm Premix) 1 gm in 50 mls @ 100 mls/hr IVPB Q12H [facility]; Protocol Last Admin: 09/09/18 02:30 Dose: 100 mls/hr Insulin Aspart (Novolog) 0 unit SC Q6 [facility]; Protocol Last Admin: 09/09/18 05:54 Dose: Not Given Insulin Glargine (Lantus) 15 unit SC Q12 [facility] Last Admin: 08/23/18 10:39 Dose: Not Given Lactobacillus Acidophilus (Bacid Acidophilus) 1 cap PEG Q12 [facility] Last Admin: 09/08/18 21:16 Dose: 1 cap Methimazole (Tapazole) 20 mg PO Q8 [facility] Last Admin: 09/09/18 05:54 Dose: 20 mg Multivitamins (Hexavitamin) 1 tab PEG DAILY [facility] Last Admin: 09/08/18 10:25 Dose: 1 tab Pantoprazole Sodium (Protonix Susp) 40 mg GT Q12H [facility] Last Admin: 09/08/18 21:17 Dose: 40 mg Tobramycin Sulfate (Tobrex 0.3% Ophth Soln) 2 drop OD Q6H [facility] Last Admin: 09/09/18 05:54 Dose: 2 drop Trazodone HCl (Desyrel) 25 mg GT HS [facility] Last Admin: 09/08/18 21:14 Dose: 25 mg - Labs Labs: 09/09/18 05:34 09/09/18 05:34 PT 11.9 SECONDS (9.7-12.2) 09/04/18 06:22 INR 1.1 09/04/18 06:22 APTT 29 SECONDS (21-34) 09/02/18 05:48 - Constitutional Appears: Chronically Ill - Head Exam Head Exam: NORMAL INSPECTION - Eye Exam Eye Exam: EOMI - ENT Exam ENT Exam: Mucous Membranes Moist - Respiratory Exam Respiratory Exam: Decreased Breath Sounds, Rales, NORMAL BREATHING PATTERN. absent: Stridor - Cardiovascular Exam Cardiovascular Exam: REGULAR RHYTHM, +S1, +S2 - GI/Abdominal Exam GI & Abdominal Exam: Distended, Soft, Normal Bowel Sounds. absent: Guarding, Rigid, Tenderness, Hyperactive Bowel Sounds, Rebound Additional comments: +peg (c/d/i) - Extremities Exam Additional comments: prevalon boots scrapes over the knees - Skin Skin Exam: Dry, Normal Color, Warm Assessment and Plan (1) Septic shock Status: Acute (2) Acute respiratory failure Status: Acute (3) Urinary tract infection Status: Acute (4) Acute renal failure Status: Acute (5) Aspiration pneumonia Status: Acute (6) Diabetes mellitus Status: Chronic (7) Ventricular arrhythmia Status: Acute (8) Hyperthyroidism Status: Acute (9) Anemia Status: Acute (10) Prophylactic measure Status: Acute Attending/Attestation - Attestation I have personally seen and examined this patient.: Yes I have fully participated in the care of the patient.: Yes I have reviewed all pertinent clinical information, including history, physical exam and plan: Yes Notes (Text): 09/09/18 08:46 1) Septic Shock secondary to Pneumonia and Urinary Tract Infection New Pneumonia-->pseudomonas Assessment/Plan * Infectious Disease (Dr. Brock) on board-->help appreciated * Meropenem d/c 08/27 * Start Maxipime 1gm [id number] (active since 08/27/18) * Trach Aspirate: Psuedomonas * s/p bronchoscopy (08/23/18) * Pseudomonas aerguinosa * dictated by dr maciel * 08/23: Bronchial Washings: pseudomonas Aeruginosa * 08/23: Fungal Culture: Prelim: negative * 08/23: Mycobacterial culture: prelim * s/p chest tube 09/06/18 * Pleural fluid: no growth after 2 days * Chest xray (09/08/18): tracheostomy tube and right sided chest tube as above. Diffuse bilateral hazy opacities could represent of pulmonary venous congestive changes or bilateral infiltrates. b/l effusions left larger than right * Recent culture: * 08/25/18 Blood culture: no growth 5 days X 2 * 08/23/18 Blood culture: no growth after 5 days X 2 * 08/27/18 Blood culture: no growth after 5 days * 08/27/18 UA and Urine Culture: no growth * Salmonella, shigella, or campylobacteria: not detected. * Procalcitonin: 2.89 (08/28)-->0.33 2) Shock Liver; Transminitis Assessment/Plan * GI has signed off * Hepatitis serology negative * Ammonia: normal * elevated INR--> vitamin K 08/24 * 08/24: off statin, benadryl, benzo, ambien, and micafungin (gave dose of 08/23) * Continue to monitor LFTs; suspected medication induced or related to low blood pressure * Gi (Dr. Murray) * discussed case with fellow 08/26/18 * Abd US shows bilateral pleural effusions, patent portal vein, no hydronephrosis, no GB stones or cholecystitis * CT Abdomen/pelvis (08/25/18): limited evaluated evaluation hepatic vein thrombosis. heterogenous attenuation of the liver. 3) Anoxic Encephalopathy Assessment/Plan * Code Blue 07/10 and 07/20 * Patient prior knowledge of 5 languages per but does not follow commands * CT head: no acute intracranial pathology. Age-related changes. no significant interval change. * suspect decline since second code blue * unable to get brain mri since she remains connected to vent via trach and has failed trials * Klonopin 0.5mg GT daily for behavioral distiburance * Brain MRI (09/08/18); no definite mass effect or suspicious extra axial collection. no evidence of acute or subacute brain infarction at this time. Borderline pattern of hydrocephalus * will ask neurology evaluate 4) Acute Respiratory Failure Pulmonary Edema Pseudomona Pneumonia s/p Trach Assessment/Plan * Patient underwent tracheostomy 07/24/18, s/p bronchoscopy 08/23, s/p right chest tube insertion * Patient had tolerated trach collars last weekend thru Tuesday 08/14; however she has been on vent to trach. Fi02: 30 percent * Pulmonary (Dr. Maciel) on board-->assisting with weaning from trach on vent to trach collar * Duonebs 3ml Inh Q6H * s/p bronchoscopy (08/23/18) * Pseudomonas aerguinosa * dictated by dr maciel * 08/23: Bronchial Washings: pseudomonas Aeruginosa * 08/23: Fungal Culture: Prelim: negative * 08/23: Mycobacterial culture: prelim * s/p chest tube insertion (09/06/18) * pleural fluid: no growth * Chest physiotherapy 4) Ventricular Tachycardia NSTEMI Apical Thrombus LLE DVT s/p IVC filter Assessment/Plan * Code Blue 07/10: SVT==>VT required amiodarone, magnesium, one shock delivered * Code Blue 07/20: vtach s/p amiodarone, fluid, calcium gluconate, required compressions and shock * S/p IVC filter 08/23/18 * Cardiology Dr Francisco on case help appreciated * No cath needed. * Medical management * No chemical anticoagulation in light of bleeding episodes (patient has dysfunction uterine bleeding required blood transfusions; Ob has been consulted earlier in the hospitalization to inpatient workup)-->recommending heparin 5000 unit subq8 (DVT ppx dose) and aspirin 81mg PO daily; likely thrombus is organized a month of anticoagulation; risk is due to bleeding against stroke * d/c Propranolol 5mg PO TID (hold SBP<100 and HR<60) * Eliquis d/c bleeding and anemia-->dvt ppx and aspirin * Echo discussed with Dr. Francisco, patient does have residual clot-->aware we cannot anticoagulate given heavy vaginal bleeding; if patient can tolerate possible aspirin 4) VRE Urinary Tract Infection (resolved) Assessment/Plan * OFF Contact isolation 5) Diabetes-->chronic Assessment/Plan * HgBA1c: 7.8 * Hypoglycemic protocol * held Lantus 15 units subcutaneous at bedtime Q12 since 08/23/18 * Hypoglycemic 08/23/18 AM * Accuchecks Q4H * off Crestor 5mg POqHS secondary to LFTs 6) Acute on Chronic Renal Failure (resolved) Assessment/Plan * Nephrology (Dr. Hyde) on board--> help appreciated-->has signed off 7) Hyperthyroidism? Low TSH, and Free T4 Thyroid Storm Assessment/Plan * Note Thyroid studies taken before amiodarone was given (please advised this is not amiodarone induced her levels were abnormal prior) * Patient does not have prior thyroid history * Endocrinology (Dr. Gayle) on board help appreciated * Thyroid U/S 07/16/18: showed heterogenous thyroid with multiple nodules bilaterally. She will need outpatient FNA Bx of the complex Left Lobe cyst (please see full report) * Methimazole 20mg PO TID * off Propranolol 5 mg PO TID due to hypotension * Monitor LFTs 8) Anemia Likely Secondary to Chronic Diseases Dysfunctional uterine bleeding Assessment/Plan * Iron normal, TIBC low, Iron Saturation normal, Ferritin normal * Stool occult blood negative * B12 normal * Folate Normal * Transfused 1 unit PRBC 07/22/18, 2 unit of PRBC 08/13/18 1 unit on 08/17/18, 1 unit 08/23/18 * Patient has been seen by OB Hospitalist; no contraindication to anticoagulation * recommend outpatient workup for vaginal bleeding * Case discussed with stationary steam engineer recommending against eliquis in light of bleeding; recommending for DVT ppx and aspirin if patient can tolerate it 9) Vitamin D deficiency Assessment plan * 50,000 international units once a week (3 doses given so far) * Restart Vitamin D 50,000 IU once a week for 9 weeks (on 08/18/18) 10) Thrombocytopenia-->resolved Assessment plan * HIT/RUSTY were negative 11) 13 mm Left Adrenal Nodule * As seen on CT Chest 07/16/[address] abdomen/pelvis * Will need outpatient follow up for cross sectional imaging for better characterization 12) Hypernatremia (resolved) * Start free fluid washes 250ml Q6 via tube feeds 13) LLE DVT s/p IVC filter * Eliquis 5 mg PO BID d/c 08/17 * Acute thrombosis of the left common femoral and femoral veins with severe reduction of the venous return on 07/18/18 venous doppler * Patient had completed one month on Eliquis; however she continues to have dysfunction uterine bleeding; cardiology is recommending against eliquis for thrombus given bleeding risk * repeat doppler to see if DVT has resolved by ultrasound repeat * s/p IVC filter (08/23/18) 14) Deconditioning * Patient needs continued PT/OT * I did speak with Dr. Pham 08/18 in regards to reset patient's sleep [facility]--> her pattern tends to be she is agitated at night when her is not present (her reliable social cue) receives benzo/haldol/seroquel and becomes very lethargic in the morning which presents rehab from working with her.Ambien currently helps her to sleep at Note Patient is connected to vent. She is unable to get off vent keeps failing trial. Patient was last on trach collar on 08/12 * Respiratory attempting to wean but remains on vent. * Brain MRI (09/08/18); no definite mass effect or suspicious extra axial collection. no evidence of acute or subacute brain infarction at this time. Borderline pattern of hydrocephalus * will ask neurology evaluate * Patient unable to get LTAC given lack of insurance 15) Prophylactic measure * Protonix 40mg GT BID * Lactobacillus 1 cap PO BID * MVI 1x/day * Vitamin C 1,000 NG 1x/day * s/p Trach and Peg * SCD on Right and contraindicated on Left due to DVT * Peg feedings * Pulmcar 40cc/hr * patient had frequent BMs on prior formula; no diarrhea; we have spoken with dietary to change it on 08/19/18 * PICC Line 07/31/18 * Note: speak to patient in [place] to assess neurologic status-->she does follow sometimes * s/p bronchoscopy 08/23 * s/p IVC filter 08/23 * s/p right chest tube insertion * patient is FULL CODE * Social work note (08/09/18): patient is undocumented, has not health insurance, dc planning will be at home with Disposition: * Follow-up chest xray; monitor output from chest tube * Weaning if patient tolerates * F/U ID regarding length of Cefepime (has been on since 08/27)
[2018-09-09] MEDS: Bacitracin 500 Units/gm Oint Foilpak UD TOP SCH ×2 (11:01→18:27)
[2018-09-09] MEDS: Pantoprazole 40 mg Susp UD GT SCH ×2 (11:02→21:48)
[2018-09-09] MEDS: Lactobacillus Acidophilus 500 MU Cap PEG SCH ×2 (11:04→21:48)
[2018-09-09] MEDS: Multiple Vitamins Tab PEG SCH (11:07)
--- NOTE | 2018-09-09 12:27 | RAD ---
Date of service: 09/09/2018 HISTORY: chest tube COMPARISON: 09/08/2018 FINDINGS: There is stable position of the tracheostomy tube. The left PICC line is coiled in the SVC. LUNGS: The lungs are well inflated. There is worsening moderate pulmonary venous congestion. PLEURA: No pneumothorax. Small left pleural effusion. The right-sided chest tube is directed medially and overlies the upper thoracic spine. CARDIOVASCULAR: The heart is normal in size. No aortic atherosclerotic calcification present. OSSEOUS STRUCTURES: Within normal limits for the patient's age. VISUALIZED UPPER ABDOMEN: Normal. OTHER FINDINGS: None. IMPRESSION: The right chest tube is directed medially and overlies the upper thoracic spine. The left PICC line is coiled in the SVC. Worsening pulmonary venous congestion. Small left pleural effusion.
[2018-09-09] MEDS ORDERED: Cefepime IV 1 gm in Dextrose 1 GM/50 ML BAG IVPB SCH (16:51)
[2018-09-09] MEDS: traZODone 25 mg Tab GT SCH (21:48)
--- NOTE | 2018-09-09 23:52 | CP.PCM.PN ---
Subjective - Date & Time of Evaluation Date of Evaluation: 09/09/18 Time of Evaluation: 15:30 - Subjective Subjective: Patient who is well known to our service, with normal MRI Brain as per [place] . ON exam she is in a chronic vegetative state and is opening her eyes. Objective - Vital Signs/Intake and Output Vital Signs (last 24 hours): Temp Pulse Resp BP Pulse Ox 98.6 F 94 H 23 118/57 L 100 09/09/18 20:00 09/09/18 20:00 09/09/18 20:00 09/09/18 20:00 09/09/18 20:00 Intake and Output: 09/09/18 09/10/18 18:59 06:59 Intake Total 790 Output Total 235 Balance 555 - Medications Medications: Current Medications Albuterol/Ipratropium (Duoneb 3 Mg/0.5 Mg (3 Ml) Ud) 3 ml INH Q4 [facility] Last Admin: 09/09/18 19:07 Dose: 3 ml Ascorbic Acid (Vitamin C 500 Mg Tab) 1,000 mg NG DAILY [facility] Last Admin: 09/09/18 11:02 Dose: 1,000 mg Bacitracin (Bacitracin) 1 ea TOP BID [facility] Last Admin: 09/09/18 18:27 Dose: 1 ea Dextrose (Dextrose 50% Inj) 0 ml IVP .STAT PRN; Protocol PRN Reason: Hypoglycemia Protocol Dextrose (Glutose 15) 0 gm PO .ONCE PRN; Protocol PRN Reason: Hypoglycemia Protocol Ergocalciferol (Drisdol 50,000 Intl Units Cap) 1 cap GT Q7D [facility] Stop: 10/06/18 19:16 Last Admin: 09/08/18 18:54 Dose: 1 cap Glucagon (Glucagen Diagnostic Kit) 0 mg IM .STAT PRN; Protocol PRN Reason: Hypoglycemia Protocol Cefepime HCl (Maxipime Iv 1 Gm Premix) 1 gm in 50 mls @ 100 mls/hr IVPB Q12H [facility]; Protocol Insulin Aspart (Novolog) 0 unit SC Q6 [facility]; Protocol Last Admin: 09/09/18 18:00 Dose: Not Given Insulin Glargine (Lantus) 15 unit SC Q12 [facility] Last Admin: 08/23/18 10:39 Dose: Not Given Lactobacillus Acidophilus (Bacid Acidophilus) 1 cap PEG Q12 [facility] Last Admin: 09/09/18 21:48 Dose: 1 cap Methimazole (Tapazole) 20 mg PO Q8 [facility] Last Admin: 09/09/18 21:48 Dose: 20 mg Multivitamins (Hexavitamin) 1 tab PEG DAILY [facility] Last Admin: 09/09/18 11:07 Dose: 1 tab Pantoprazole Sodium (Protonix Susp) 40 mg GT Q12H [facility] Last Admin: 09/09/18 21:48 Dose: 40 mg Tobramycin Sulfate (Tobrex 0.3% [facility]) 2 drop OD Q6H [facility] Last Admin: 09/09/18 18:02 Dose: 2 drop Trazodone HCl (Desyrel) 25 mg GT HS [facility] Last Admin: 09/09/18 21:48 Dose: 25 mg - Labs Labs: 09/09/18 05:34 09/09/18 05:34 PT 11.9 SECONDS (9.7-12.2) 09/04/18 06:22 INR 1.1 09/04/18 06:22 APTT 29 SECONDS (21-34) 09/02/18 05:48
[2018-09-10] MEDS: (Novolog) Insulin Aspart, Recombinant 100 u/ml 10 ml vial SC SCH ×4 (00:26→18:34)
[2018-09-10] MEDS: Tobramycin 0.3% OPHT SOLN OD SCH ×4 (00:27→17:47)
[2018-09-10] MEDS: Albuterol-Ipratrop 3 mg / 0.5 (3 ml) UD INH SCH ×6 (00:47→19:25)
[2018-09-10] MEDS: Cefepime IV 1 gm in Dextrose 1 GM/50 ML BAG IVPB SCH ×2 (03:43→14:30)
[2018-09-10 05:44] LABS: BASO # 0.1 K/uL (0.0-0.2); BASO % 0.9 % (0.0-2.0); EOS # 0.2 K/uL (0.0-0.7); HEMOGLOBIN 9.2 g/dL (11.0-16.0); LYMPH # 0.9 K/uL (1.0-4.3); LYMPH % 15.5 % (20.0-40.0); MEAN CELL VOLUME 88.3 fL (81.0-99.0); MEAN CORPUSCULAR HEMOGLOBIN 28.7 pg (27.0-31.0); MEAN CORPUSCULAR HGB CONC 32.5 g/dL (33.0-37.0); MEAN PLATELET VOLUME 8.9 fL (7.2-11.7); MONO # 0.4 K/uL (0.0-0.8); MONO % 7.2 % (0.0-10.0); NEUT # 4.5 K/uL (1.8-7.0); NEUT % 73.4 % (50.0-75.0); RBC 3.21 Mil/uL (3.80-5.20); RED CELL DISTRIBUTION WIDTH 18.4 % (11.5-14.5); WHITE BLOOD COUNT 6.1 K/uL (4.8-10.8)
[2018-09-10 06:06] LABS: ALB/GLOB RATIO 0.8 (1.0-2.1); ALT/SGPT 81 U/L (9-52); AST/SGOT 38 U/L (14-36); BLOOD UREA NITROGEN 31 mg/dL (7-17); CALCIUM 8.5 mg/dl (8.6-10.4); GFR NON-AFRICAN AMERICAN > 60
--- NOTE | 2018-09-10 07:22 | CP.PCM.PN ---
<Evaristo Barber - Last Filed: 09/10/18 07:43> Subjective - Date & Time of Evaluation Date of Evaluation: 09/10/18 Time of Evaluation: 07:21 - Subjective Subjective: PGY1 Medicine progress note for hospitalist Pt was seen and examined at bedside. ROS unobtainable. Pt does not seem to be in any acute distress. No acute events overnight. PEG tube in place. Pt on trach ventilator support. Chest tube with approximately 650 mL of pink, serosanguinous fluid. Objective - Vital Signs/Intake and Output Vital Signs (last 24 hours): Temp Pulse Resp BP Pulse Ox 98.5 F 100 H 22 116/78 100 09/10/18 04:00 09/10/18 04:00 09/10/18 04:00 09/10/18 04:00 09/10/18 04:00 Intake and Output: 09/10/18 09/10/18 06:59 18:59 Intake Total 650 Output Total 170 Balance 480 - Medications Medications: Current Medications Albuterol/Ipratropium (Duoneb 3 Mg/0.5 Mg (3 Ml) Ud) 3 ml INH Q4 [facility] Last Admin: 09/10/18 04:36 Dose: 3 ml Ascorbic Acid (Vitamin C 500 Mg Tab) 1,000 mg NG DAILY [facility] Last Admin: 09/09/18 11:02 Dose: 1,000 mg Bacitracin (Bacitracin) 1 ea TOP BID [facility] Last Admin: 09/09/18 18:27 Dose: 1 ea Dextrose (Dextrose 50% Inj) 0 ml IVP .STAT PRN; Protocol PRN Reason: Hypoglycemia Protocol Dextrose (Glutose 15) 0 gm PO .ONCE PRN; Protocol PRN Reason: Hypoglycemia Protocol Ergocalciferol (Drisdol 50,000 Intl Units Cap) 1 cap GT Q7D [facility] Stop: 10/06/18 19:16 Last Admin: 09/08/18 18:54 Dose: 1 cap Glucagon (Glucagen Diagnostic Kit) 0 mg IM .STAT PRN; Protocol PRN Reason: Hypoglycemia Protocol Cefepime HCl (Maxipime Iv 1 Gm Premix) 1 gm in 50 mls @ 100 mls/hr IVPB Q12H [facility]; Protocol Last Admin: 09/10/18 03:43 Dose: 100 mls/hr Insulin Aspart (Novolog) 0 unit SC Q6 [facility]; Protocol Last Admin: 09/10/18 05:39 Dose: Not Given Insulin Glargine (Lantus) 15 unit SC Q12 [facility] Last Admin: 08/23/18 10:39 Dose: Not Given Lactobacillus Acidophilus (Bacid Acidophilus) 1 cap PEG Q12 [facility] Last Admin: 09/09/18 21:48 Dose: 1 cap Methimazole (Tapazole) 20 mg PO Q8 [facility] Last Admin: 09/10/18 05:39 Dose: 20 mg Multivitamins (Hexavitamin) 1 tab PEG DAILY [facility] Last Admin: 09/09/18 11:07 Dose: 1 tab Pantoprazole Sodium (Protonix Susp) 40 mg GT Q12H [facility] Last Admin: 09/09/18 21:48 Dose: 40 mg Tobramycin Sulfate (Tobrex 0.3% Ophth Soln) 2 drop OD Q6H [facility] Last Admin: 09/10/18 05:40 Dose: 2 drop Trazodone HCl (Desyrel) 25 mg GT HS [facility] Last Admin: 09/09/18 21:48 Dose: 25 mg - Labs Labs: 09/10/18 05:40 09/10/18 05:40 PT 11.9 SECONDS (9.7-12.2) 09/04/18 06:22 INR 1.1 09/04/18 06:22 APTT 29 SECONDS (21-34) 09/02/18 05:48 - Constitutional Appears: Chronically Ill - Head Exam Head Exam: NORMAL INSPECTION - Eye Exam Eye Exam: EOMI - Neck Exam Additional comments: (+) trach in place on ventilator; no signs of infection, or active bleeding; C/D/I - Respiratory Exam Respiratory Exam: Decreased Breath Sounds, Rhonchi, NORMAL BREATHING PATTERN - Cardiovascular Exam Cardiovascular Exam: REGULAR RHYTHM, +S1, +S2. absent: Tachycardia - GI/Abdominal Exam GI & Abdominal Exam: Soft, Normal Bowel Sounds. absent: Firm, Guarding, Rigid, Rebound Additional comments: PEG tube in place; no signs of infection or active bleeding; C/D/I Assessment and Plan - Assessment and Plan (Free Text) Assessment: This is a 52yo F originally admitted to the ICU for Septic shock 2/2 to PNA/UTI worsened by embolic stroke, cardiac arrest, and anoxic brain injury. Pt is s/p IVC filter and chest tube placement. Plan: 1) Septic Shock secondary to Pneumonia and Urinary Tract Infection New Pneumonia-->pseudomonas Assessment/Plan * Infectious Disease (Dr. Brock) on board-->help appreciated * Meropenem d/c 08/27 * Start Maxipime 1gm [id number] (active since 08/27/18) * Trach Aspirate: Psuedomonas * s/p bronchoscopy (08/23/18) * Pseudomonas aerguinosa * dictated by dr maciel * 08/23: Bronchial Washings: pseudomonas Aeruginosa * 08/23: Fungal Culture: Prelim: negative * 08/23: Mycobacterial culture: prelim * s/p chest tube 09/06/18 * Pleural fluid: no growth after 3 days * Chest xray (09/08/18): tracheostomy tube and right sided chest tube as above. Diffuse bilateral hazy opacities could represent of pulmonary venous congestive changes or bilateral infiltrates. b/l effusions left larger than right * F/u repeat CXR today * Recent culture: * 08/25/18 Blood culture: no growth 5 days X 2 * 08/23/18 Blood culture: no growth after 5 days X 2 * 08/27/18 Blood culture: no growth after 5 days * 08/27/18 UA and Urine Culture: no growth * Salmonella, shigella, or campylobacteria: not detected. * Procalcitonin: 2.89 (08/28)-->0.33 * No fevers overnight, Pt is hemodynamically stable 2) Shock Liver; Transminitis Assessment/Plan * GI has signed off * Hepatitis serology negative * Ammonia: normal * elevated INR--> vitamin K 08/24 * 08/24: off statin, benadryl, benzo, ambien, and micafungin (gave dose of 08/23) * Continue to monitor LFTs; suspected medication induced or related to low blood pressure * Gi (Dr. Murray) * discussed case with fellow 08/26/18 * Abd US shows bilateral pleural effusions, patent portal vein, no hydronephrosis, no GB stones or cholecystitis * CT Abdomen/pelvis (08/25/18): limited evaluated evaluation hepatic vein thrombosis. heterogenous attenuation of the liver. 3) Anoxic Encephalopathy Assessment/Plan * Code Blue 07/10 and 07/20 * Patient prior knowledge of 5 languages per but does not follow commands * CT head: no acute intracranial pathology. Age-related changes. no significant interval change. * suspect decline since second code blue * unable to get brain mri since she remains connected to vent via trach and has failed trials * Klonopin 0.5mg GT daily for behavioral distiburance * Brain MRI (09/08/18); no definite mass effect or suspicious extra axial collection. no evidence of acute or subacute brain infarction at this time. Borderline pattern of hydrocephalus * will ask neurology evaluate 4) Acute Respiratory Failure Pulmonary Edema Pseudomona Pneumonia s/p Trach Assessment/Plan * Patient underwent tracheostomy 07/24/18, s/p bronchoscopy 08/23, s/p right chest tube insertion * Patient had tolerated trach collars last weekend thru Tuesday 08/14; however she has been on vent to trach. Fi02: 30 percent * Pulmonary (Dr. Maciel) on board-->assisting with weaning from trach on vent to trach collar * Duonebs 3ml Inh Q6H * s/p bronchoscopy (08/23/18) * Pseudomonas aerguinosa * dictated by dr mcaiel * 08/23: Bronchial Washings: pseudomonas Aeruginosa * 08/23: Fungal Culture: Prelim: negative * 08/23: Mycobacterial culture: prelim * s/p chest tube insertion (09/06/18) * pleural fluid: no growth * Chest physiotherapy 5) Ventricular Tachycardia NSTEMI Apical Thrombus LLE DVT s/p IVC filter Assessment/Plan * Code Blue 07/10: SVT==>VT required amiodarone, magnesium, one shock delivered * Code Blue 07/20: vtach s/p amiodarone, fluid, calcium gluconate, required compressions and shock * S/p IVC filter 08/23/18 * Cardiology Dr Francisco on case help appreciated * No cath needed. * Medical management * No chemical anticoagulation in light of bleeding episodes (patient has dysfunction uterine bleeding required blood transfusions; Ob has been consulted earlier in the hospitalization to inpatient workup)-->recommending heparin 5000 unit subq8 (DVT ppx dose) and aspirin 81mg PO daily; likely thrombus is organized a month of anticoagulation; risk is due to bleeding against stroke * d/c Propranolol 5mg PO TID (hold SBP<100 and HR<60) * Eliquis d/c bleeding and anemia-->dvt ppx and aspirin * Echo discussed with Dr. Francisco, patient does have residual clot-->aware we cannot anticoagulate given heavy vaginal bleeding; if patient can tolerate possible aspirin 6) VRE Urinary Tract Infection (resolved) Assessment/Plan * OFF Contact isolation 7) Diabetes-->chronic Assessment/Plan * HgBA1c: 7.8 * Hypoglycemic protocol * held Lantus 15 units subcutaneous at bedtime Q12 since 08/23/18 * Hypoglycemic 08/23/18 AM * Accuchecks Q4H * off Crestor 5mg POqHS secondary to LFTs 8) Acute on Chronic Renal Failure (resolved) Assessment/Plan * Nephrology (Dr. Hyde) on board--> help appreciated-->has signed off 9) Hyperthyroidism? Low TSH, and Free T4 Thyroid Storm Assessment/Plan * Note Thyroid studies taken before amiodarone was given (please advised this is not amiodarone induced her levels were abnormal prior) * Patient does not have prior thyroid history * Endocrinology (Dr. Gayle) on board help appreciated * Thyroid U/S 07/16/18: showed heterogenous thyroid with multiple nodules bilaterally. She will need outpatient FNA Bx of the complex Left Lobe cyst (please see full report) * Methimazole 20mg PO TID * off Propranolol 5 mg PO TID due to hypotension * Monitor LFTs 10) Anemia Likely Secondary to Chronic Diseases Dysfunctional uterine bleeding Assessment/Plan * Iron normal, TIBC low, Iron Saturation normal, Ferritin normal * Stool occult blood negative * B12 normal * Folate Normal * Transfused 1 unit PRBC 07/22/18, 2 unit of PRBC 08/13/18 1 unit on 08/17/18, 1 unit 08/23/18 * Patient has been seen by OB Hospitalist; no contraindication to anticoagulation * recommend outpatient workup for vaginal bleeding * Case discussed with sterile preparation technician recommending against eliquis in light of bleeding; recommending for DVT ppx and aspirin if patient can tolerate it 11) Vitamin D deficiency Assessment plan * 50,000 international units once a week (3 doses given so far) * Restart Vitamin D 50,000 IU once a week for 9 weeks (on 08/18/18) 12) Thrombocytopenia-->resolved Assessment plan * HIT/RUSTY were negative 13) 13 mm Left Adrenal Nodule * As seen on CT Chest 07/16/[address] abdomen/pelvis * Will need outpatient follow up for cross sectional imaging for better characterization 14) Hypernatremia (resolved) * Start free fluid washes 250ml Q6 via tube feeds 15) LLE DVT s/p IVC filter * Eliquis 5 mg PO BID d/c 08/17 * Acute thrombosis of the left common femoral and femoral veins with severe reduction of the venous return on 07/18/18 venous doppler * Patient had completed one month on Eliquis; however she continues to have dysfunction uterine bleeding; cardiology is recommending against eliquis for thrombus given bleeding risk * repeat doppler to see if DVT has resolved by ultrasound repeat * s/p IVC filter (08/23/18) 16) Deconditioning * Patient needs continued PT/OT * I did speak with Dr. Pham 08/18 in regards to reset patient's sleep [facility]--> her pattern tends to be she is agitated at night when her is not present (her reliable social cue) receives benzo/haldol/seroquel and becomes very lethargic in the morning which presents rehab from working with her.Ambien currently helps her to sleep at Note Patient is connected to vent. She is unable to get off vent keeps failing trial. Patient was last on trach collar on 08/12 * Respiratory attempting to wean but remains on vent. * Brain MRI (09/08/18); no definite mass effect or suspicious extra axial collection. no evidence of acute or subacute brain infarction at this time. Borderline pattern of hydrocephalus * will ask neurology evaluate * Patient unable to get LTAC given lack of insurance 17) Prophylactic measure * Protonix 40mg GT BID * Lactobacillus 1 cap PO BID * MVI 1x/day * Vitamin C 1,000 NG 1x/day * s/p Trach and Peg * SCD on Right and contraindicated on Left due to DVT * Peg feedings * Pulmcar 40cc/hr * patient had frequent BMs on prior formula; no diarrhea; we have spoken with dietary to change it on 08/19/18 * PICC Line 07/31/18 * Note: speak to patient in a[place] to assess neurologic status-->she does follow sometimes * s/p bronchoscopy 08/23 * s/p IVC filter 08/23 * s/p right chest tube insertion, currently approximately 650 mL of pink, serosanguinous fluid in container with some fluid in the tube * patient is FULL CODE * Social work note (08/09/18): patient is undocumented, has not health insurance, dc planning will be at home with Disposition: * Follow-up chest xray; continue monitor output from chest tube * Weaning if patient tolerates * F/U ID regarding length of Cefepime (has been on since 08/27) <Saira Leahy V - Last Filed: 10/24/18 16:46> Objective - Vital Signs/Intake and Output Vital Signs (last 24 hours): Temp Pulse Resp BP Pulse Ox 98.1 F 85 21 113/60 100 09/10/18 12:00 09/10/18 08:00 09/10/18 12:00 09/10/18 08:00 09/10/18 12:00 Intake and Output: 09/10/18 09/10/18 06:59 18:59 Intake Total 650 460 Output Total 170 0 Balance 480 460 - Medications Medications: Current Medications Albuterol/Ipratropium (Duoneb 3 Mg/0.5 Mg (3 Ml) Ud) 3 ml INH Q4 [facility] Last Admin: 09/10/18 15:35 Dose: 3 ml Ascorbic Acid (Vitamin C 500 Mg Tab) 1,000 mg NG DAILY [facility] Last Admin: 09/10/18 10:05 Dose: 1,000 mg Bacitracin (Bacitracin) 1 ea TOP BID [facility] Last Admin: 09/10/18 10:05 Dose: 1 ea Dextrose (Dextrose 50% Inj) 0 ml IVP .STAT PRN; Protocol PRN Reason: Hypoglycemia Protocol Dextrose (Glutose 15) 0 gm PO .ONCE PRN; Protocol PRN Reason: Hypoglycemia Protocol Ergocalciferol (Drisdol 50,000 Intl Units Cap) 1 cap GT Q7D [facility] Stop: 10/06/18 19:16 Last Admin: 09/08/18 18:54 Dose: 1 cap Glucagon (Glucagen Diagnostic Kit) 0 mg IM .STAT PRN; Protocol PRN Reason: Hypoglycemia Protocol Cefepime HCl (Maxipime Iv 1 Gm Premix) 1 gm in 50 mls @ 100 mls/hr IVPB Q12H [facility]; Protocol Last Admin: 09/10/18 14:30 Dose: 100 mls/hr Insulin Aspart (Novolog) 0 unit SC Q6 [facility]; Protocol Last Admin: 12/09/18 12:00 Dose: Not Given Insulin Glargine (Lantus) 15 unit SC Q12 [facility] Last Admin: 08/23/18 10:39 Dose: Not Given Lactobacillus Acidophilus (Bacid Acidophilus) 1 cap PEG Q12 [facility] Last Admin: 09/10/18 10:00 Dose: Not Given Methimazole (Tapazole) 20 mg PO Q8 [facility] Last Admin: 09/10/18 14:00 Dose: 20 mg Multivitamins (Hexavitamin) 1 tab PEG DAILY [facility] Last Admin: 09/10/18 10:05 Dose: 1 tab Pantoprazole Sodium (Protonix Susp) 40 mg GT Q12H [facility] Last Admin: 09/10/18 10:05 Dose: 40 mg Tobramycin Sulfate (Tobrex 0.3% [facility] Soln) 2 drop OD Q6H [facility] Last Admin: 09/10/18 17:47 Dose: 2 drop Trazodone HCl (Desyrel) 25 mg GT HS [facility] Last Admin: 09/09/18 21:48 Dose: 25 mg - Labs Labs: 09/10/18 05:40 09/10/18 05:40 PT 11.9 SECONDS (9.7-12.2) 09/04/18 06:22 INR 1.1 09/04/18 06:22 APTT 29 SECONDS (21-34) 09/02/18 05:48 Assessment and Plan (1) Septic shock Status: Acute (2) Acute respiratory failure Status: Acute (3) Urinary tract infection Status: Acute (4) Acute renal failure Status: Acute (5) Aspiration pneumonia Status: Acute (6) Diabetes mellitus Status: Chronic (7) Ventricular arrhythmia Status: Acute (8) Hyperthyroidism Status: Acute (9) Anemia Status: Acute (10) Prophylactic measure Status: Acute Attending/Attestation - Attestation I have personally seen and examined this patient.: Yes I have fully participated in the care of the patient.: Yes I have reviewed all pertinent clinical information, including history, physical exam and plan: Yes
[2018-09-10] MEDS: Lactobacillus Acidophilus 500 MU Cap PEG SCH ×2 (10:00→21:47)
[2018-09-10] MEDS: Pantoprazole 40 mg Susp UD GT SCH ×2 (10:05→21:46)
[2018-09-10] MEDS: Bacitracin 500 Units/gm Oint Foilpak UD TOP SCH ×2 (10:05→19:00)
[2018-09-10] MEDS: Multiple Vitamins Tab PEG SCH (10:05)
--- NOTE | 2018-09-10 11:26 | RAD ---
Date of service: 09/10/2018 HISTORY: chest tube right COMPARISON: 09/09/2018 FINDINGS: There is stable position of the tracheostomy tube. The right chest tube is directed medially and overlies the upper thoracic spine. The left PICC line is coiled in the SVC. LUNGS: The lungs are well inflated. There is mild pulmonary venous congestion. PLEURA: No large right pleural effusion or pneumothorax. Suspect small left pleural effusion. There is biapical pleural thickening. CARDIOVASCULAR: The heart is normal in size. No aortic atherosclerotic calcification present. OSSEOUS STRUCTURES: Within normal limits for the patient's age. VISUALIZED UPPER ABDOMEN: Normal. OTHER FINDINGS: None. IMPRESSION: Little interval change since the prior examination. The right-sided chest tube is directed medially and overlies the upper thoracic spine.
[2018-09-10 11:28] LABS: LDH PLEURAL FLUID 245 U/L; TOTAL PROTEIN PLEURAL FLUID <3.0 g/dL
[2018-09-10] MEDS: traZODone 25 mg Tab GT SCH (21:47)
[2018-09-11] MEDS: Albuterol-Ipratrop 3 mg / 0.5 (3 ml) UD INH SCH ×3 (00:21→07:25)
[2018-09-11] MEDS: (Novolog) Insulin Aspart, Recombinant 100 u/ml 10 ml vial SC SCH ×4 (00:37→17:43)
[2018-09-11] MEDS: Tobramycin 0.3% OPHT SOLN OD SCH ×4 (00:38→17:43)
[2018-09-11] MEDS: Cefepime IV 1 gm in Dextrose 1 GM/50 ML BAG IVPB SCH ×2 (02:44→14:15)
[2018-09-11 06:33] LABS: BASO # 0.1 K/uL (0.0-0.2); BASO % 1.1 % (0.0-2.0); EOS # 0.2 K/uL (0.0-0.7); EOS % 3.1 % (0.0-4.0); HEMOGLOBIN 9.4 g/dL (11.0-16.0); LYMPH # 1.3 K/uL (1.0-4.3); LYMPH % 16.9 % (20.0-40.0); MEAN CORPUSCULAR HGB CONC 32.9 g/dL (33.0-37.0); MEAN PLATELET VOLUME 8.8 fL (7.2-11.7); MONO # 0.5 K/uL (0.0-0.8); MONO % 6.7 % (0.0-10.0); NEUT # 5.4 K/uL (1.8-7.0); NEUT % 72.2 % (50.0-75.0); RBC 3.23 Mil/uL (3.80-5.20); RED CELL DISTRIBUTION WIDTH 18.3 % (11.5-14.5); WHITE BLOOD COUNT 7.5 K/uL (4.8-10.8)
[2018-09-11 06:48] LABS: ALB/GLOB RATIO 0.8 (1.0-2.1); ALT/SGPT 69 U/L (9-52); AST/SGOT 35 U/L (14-36); BLOOD UREA NITROGEN 34 mg/dL (7-17); CALCIUM 8.9 mg/dl (8.6-10.4); GFR NON-AFRICAN AMERICAN > 60
--- NOTE | 2018-09-11 07:56 | CP.PCM.PN ---
<Bhanu Villegas - Last Filed: 09/11/18 16:36> Subjective - Date & Time of Evaluation Date of Evaluation: 09/11/18 Time of Evaluation: 07:52 - Subjective Subjective: HOSPITALIST SERVICE Pt seen and examined at bedside. Pt less arousable today, as per nursing no acute events overnight. Nursing endorses ample oral secretions requiring frequent suctioning since Tuesday. Pt had chest tube placed w/ Dr Maciel, draining 200ccs of sero sanguineous fluids. Objective - Vital Signs/Intake and Output Vital Signs (last 24 hours): Temp Pulse Resp BP Pulse Ox 98.2 F 91 H 15 113/62 96 09/11/18 07:33 09/11/18 07:33 09/11/18 07:33 09/11/18 07:33 09/11/18 07:33 Intake and Output: 09/11/18 09/11/18 06:59 18:59 Intake Total 730 Output Total 110 Balance 620 - Medications Medications: Current Medications Albuterol/Ipratropium (Duoneb 3 Mg/0.5 Mg (3 Ml) Ud) 3 ml INH Q4 MANOLO Last Admin: 09/11/18 07:25 Dose: 3 ml Ascorbic Acid (Vitamin C 500 Mg Tab) 1,000 mg NG DAILY MANOLO Last Admin: 09/10/18 10:05 Dose: 1,000 mg Bacitracin (Bacitracin) 1 ea TOP BID MANOLO Last Admin: 09/10/18 19:00 Dose: 1 ea Dextrose (Dextrose 50% Inj) 0 ml IVP .STAT PRN; Protocol PRN Reason: Hypoglycemia Protocol Dextrose (Glutose 15) 0 gm PO .ONCE PRN; Protocol PRN Reason: Hypoglycemia Protocol Ergocalciferol (Drisdol 50,000 Intl Units Cap) 1 cap GT Q7D MANOLO Stop: 10/06/18 19:16 Last Admin: 09/08/18 18:54 Dose: 1 cap Glucagon (Glucagen Diagnostic Kit) 0 mg IM .STAT PRN; Protocol PRN Reason: Hypoglycemia Protocol Cefepime HCl (Maxipime Iv 1 Gm Premix) 1 gm in 50 mls @ 100 mls/hr IVPB Q12H MANOLO; Protocol Last Admin: 09/11/18 02:44 Dose: 100 mls/hr Insulin Aspart (Novolog) 0 unit SC Q6 MANOLO; Protocol Last Admin: 09/11/18 05:57 Dose: Not Given Insulin Glargine (Lantus) 15 unit SC Q12 [facility] Last Admin: 08/23/18 10:39 Dose: Not Given Lactobacillus Acidophilus (Bacid Acidophilus) 1 cap PEG Q12 [facility] Last Admin: 09/10/18 21:47 Dose: 1 cap Methimazole (Tapazole) 20 mg PO Q8 [facility] Last Admin: 09/11/18 05:57 Dose: 20 mg Multivitamins (Hexavitamin) 1 tab PEG DAILY [facility] Last Admin: 09/10/18 10:05 Dose: 1 tab Pantoprazole Sodium (Protonix Susp) 40 mg GT Q12H [facility] Last Admin: 09/10/18 21:46 Dose: 40 mg Tobramycin Sulfate (Tobrex 0.3% Oph Soln) 2 drop OD Q6H [facility] Last Admin: 09/11/18 05:57 Dose: 2 drop Trazodone HCl (Desyrel) 25 mg GT HS [facility] Last Admin: 09/10/18 21:47 Dose: 25 mg - Labs Labs: 09/11/18 06:24 09/11/18 06:24 PT 11.9 SECONDS (9.7-12.2) 09/04/18 06:22 INR 1.1 09/04/18 06:22 APTT 29 SECONDS (21-34) 09/02/18 05:48 - Additional Findings Additional findings: - Constitutional Appears: Chronically Ill - Head Exam Head Exam: NORMAL INSPECTION - Eye Exam Eye Exam: EOMI - Neck Exam Additional comments: (+) trach in place on ventilator; no signs of infection, or active bleeding; C/D/I - Respiratory Exam Respiratory Exam: Decreased Breath Sounds, Rhonchi, NORMAL BREATHING PATTERN - Cardiovascular Exam Cardiovascular Exam: REGULAR RHYTHM, +S1, +S2. absent: Tachycardia - GI/Abdominal Exam GI & Abdominal Exam: Soft, Normal Bowel Sounds. absent: Firm, Guarding, Rigid, Rebound Additional comments: PEG tube in place; no signs of infection or active bleeding; C/D/I Assessment and Plan - Assessment and Plan (Free Text) Assessment: This is a 52yo F originally admitted to the ICU for Septic shock 2/2 to PNA/UTI worsened by cardiac arrest, and anoxic brain injury. Pt is s/p IVC filter 08/23 and chest tube placement 09/06. Plan: Septic Shock secondary to Pneumonia and Urinary Tract Infection New Pneumonia-->pseudomonas Assessment/Plan * Infectious Disease (Dr. Brock) on board-->help appreciated * Meropenem d/c 08/27 * Start Maxipime 1gm [id number] (active since 08/27/18) * Trach Aspirate: Psuedomonas * s/p bronchoscopy (08/23/18) * Pseudomonas aerguinosa * dictated by dr maciel * 08/23: Bronchial Washings: pseudomonas Aeruginosa * s/p chest tube 09/06/18 * Pleural fluid: no growth after 4 days * Chest xray (09/08/18): tracheostomy tube and right sided chest tube as above. Diffuse bilateral hazy opacities could represent of pulmonary venous congestive changes or bilateral infiltrates. b/l effusions left larger than right * Recent culture: * 08/25/18 Blood culture: no growth 5 days X 2 * 08/23/18 Blood culture: no growth after 5 days X 2 * 08/27/18 Blood culture: no growth after 5 days * 08/27/18 UA and Urine Culture: no growth * Salmonella, shigella, or campylobacteria: not detected. * Procalcitonin: 2.89 (08/28)-->0.33 * No fevers overnight, Pt is hemodynamically stable Shock Liver; Transminitis Assessment/Plan * GI has signed off * Hepatitis serology negative * Ammonia: normal * elevated INR--> vitamin K 08/24 * 08/24: off statin, benadryl, benzo, ambien, and micafungin (gave dose of 08/23) * Continue to monitor LFTs; suspected medication induced or related to low blood pressure * Gi (Dr. Murray) * discussed case with fellow 08/26/18 * Abd US shows bilateral pleural effusions, patent portal vein, no hydronephrosis, no GB stones or cholecystitis * CT Abdomen/pelvis (08/25/18): limited evaluated evaluation hepatic vein thrombosis. heterogenous attenuation of the liver. Anoxic Encephalopathy Assessment/Plan * Code Blue 07/10 and 07/20 * Patient prior knowledge of 5 languages per but does not follow commands * CT head: no acute intracranial pathology. Age-related changes. no significant interval change. * suspect decline since second code blue * unable to get brain mri since she remains connected to vent via trach and has failed trials * Klonopin 0.5mg GT daily for behavioral distiburance * Brain MRI (09/08/18); no definite mass effect or suspicious extra axial collection. no evidence of acute or subacute brain infarction at this time. Borderline pattern of hydrocephalus * will ask neurology evaluate Acute Respiratory Failure Pulmonary Edema Pseudomona Pneumonia s/p Trach Assessment/Plan * Patient underwent tracheostomy 07/24/18, s/p bronchoscopy 08/23, s/p right chest tube insertion 09/06 * Patient had tolerated trach collars last weekend thru Tuesday 08/14; however she has been on vent to trach. Fi02: 30 percent * Pulmonary (Dr. Maciel) on board-->assisting with weaning from trach on vent to trach collar * Duonebs 3ml Inh Q6H * s/p bronchoscopy (08/23/18) * Pseudomonas aerguinosa * dictated by dr maciel * 08/23: Bronchial Washings: pseudomonas Aeruginosa * 08/23: Fungal Culture: Prelim: negative * 08/23: Mycobacterial culture: prelim * s/p chest tube insertion (09/06/18) * pleural fluid: no growth * Chest physiotherapy Ventricular Tachycardia NSTEMI Apical Thrombus LLE DVT s/p IVC filter Assessment/Plan * Code Blue 07/10: SVT==>VT required amiodarone, magnesium, one shock delivered * Code Blue 07/20: vtach s/p amiodarone, fluid, calcium gluconate, required compressions and shock * S/p IVC filter 08/23/18 * Cardiology Dr Francisco on case help appreciated * No cath needed. * Medical management * No chemical anticoagulation in light of bleeding episodes (patient has dysfunction uterine bleeding required blood transfusions; Ob has been consulted earlier in the hospitalization to inpatient workup)-->recommending heparin 5000 unit subq8 (DVT ppx dose) and aspirin 81mg PO daily; likely thrombus is organized a month of anticoagulation; risk is due to bleeding against stroke * d/c Propranolol 5mg PO TID (hold SBP<100 and HR<60) * Eliquis d/c bleeding and anemia-->dvt ppx and aspirin * Echo discussed with Dr. Francisco, patient does have residual clot-->aware we cannot anticoagulate given heavy vaginal bleeding; if patient can tolerate possible aspirin Diabetes-->chronic Assessment/Plan * HgBA1c: 7.8 * Hypoglycemic protocol * held Lantus 15 units subcutaneous at bedtime Q12 since 08/23/18 * Hypoglycemic 08/23/18 AM * Accuchecks Q4H * off Crestor 5mg POqHS secondary to LFTs Acute on Chronic Renal Failure (resolved) Assessment/Plan * Nephrology (Dr. Hyde) on board--> help appreciated-->has signed off Hyperthyroidism? Low TSH, and Free T4 Thyroid Storm Assessment/Plan * Note Thyroid studies taken before amiodarone was given (please advised this is not amiodarone induced her levels were abnormal prior) * Patient does not have prior thyroid history * Endocrinology (Dr. Gayle) on board help appreciated * Thyroid U/S 07/16/18: showed heterogenous thyroid with multiple nodules bilaterally. She will need outpatient FNA Bx of the complex Left Lobe cyst (pl ease see full report) * Methimazole 20mg PO TID * off Propranolol 5 mg PO TID due to hypotension * Monitor LFTs Anemia Likely Secondary to Chronic Diseases Dysfunctional uterine bleeding Assessment/Plan * Iron normal, TIBC low, Iron Saturation normal, Ferritin normal * Stool occult blood negative * B12 normal * Folate Normal * Transfused 1 unit PRBC 07/22/18, 2 unit of PRBC 08/13/18 1 unit on 08/17/18, 1 unit 08/23/18 * Patient has been seen by OB Hospitalist; no contraindication to anticoagulation * recommend outpatient workup for vaginal bleeding * Case discussed with adjunct lecturer recommending against eliquis in light of bleeding; recommending for DVT ppx and aspirin if patient can tolerate it 13 mm Left Adrenal Nodule * As seen on CT Chest 07/16/[address] abdomen/pelvis * Will need outpatient follow up for cross sectional imaging for better characterization LLE DVT s/p IVC filter * Eliquis 5 mg PO BID d/c 08/17 * Acute thrombosis of the left common femoral and femoral veins with severe reduction of the venous return on 07/18/18 venous doppler * Patient had completed one month on Eliquis; however she continues to have dysfunction uterine bleeding; cardiology is recommending against eliquis for thrombus given bleeding risk * repeat doppler to see if DVT has resolved by ultrasound repeat * s/p IVC filter (08/23/18) Deconditioning * Patient needs continued PT/OT * Brain MRI (09/08/18); no definite mass effect or suspicious extra axial collection. no evidence of acute or subacute brain infarction at this time. Borderline pattern of hydrocephalus * Patient unable to get LTAC given lack of insurance Prophylactic measure * Protonix 40mg GT BID * Lactobacillus 1 cap PO BID * MVI 1x/day * Vitamin C 1,000 NG 1x/day * s/p Trach and Peg * SCD on Right and contraindicated on Left due to DVT * Peg feedings * Pulmcar 40cc/hr * patient had frequent BMs on prior formula; no diarrhea; we have spoken with dietary to change it on 08/19/18 * PICC Line 07/31/18 * Note: speak to patient in alexis to assess neurologic status-->she does follow sometimes * s/p bronchoscopy 08/23 * s/p IVC filter 08/23 * s/p right chest tube insertion, currently approximately 650 mL of pink, serosanguinous fluid in container with some fluid in the tube * patient is FULL CODE * Social work note (08/09/18): patient is undocumented, has not health insurance, dc planning will be at home with Disposition: * Follow-up chest xray; continue monitor output from chest tube * Weaning if patient tolerates * F/U ID regarding length of Cefepime (has been on since 08/27) <[place] - Last Filed: 09/17/18 19:41> Objective - Vital Signs/Intake and Output Vital Signs (last 24 hours): Temp Pulse Resp BP Pulse Ox 99.2 F 87 26 H 107/52 L 100 09/17/18 16:00 09/17/18 16:00 09/17/18 16:00 09/17/18 16:00 09/17/18 16:00 Intake and Output: 09/17/18 09/18/18 18:59 06:59 Intake Total 380 Balance 380 - Medications Medications: Current Medications Ascorbic Acid (Vitamin C 500 Mg Tab) 1,000 mg NG DAILY [facility] Last Admin: 09/17/18 09:34 Dose: 1,000 mg Bacitracin (Bacitracin) 1 ea TOP BID [facility]O Last Admin: 09/17/18 17:55 Dose: 1 ea Dextrose (Dextrose 50% Inj) 0 ml IVP .STAT PRN; Protocol PRN Reason: Hypoglycemia Protocol Dextrose (Glutose 15) 0 gm PO .ONCE PRN; Protocol PRN Reason: Hypoglycemia Protocol Ergocalciferol (Drisdol 50,000 Intl Units Cap) 1 cap GT Q7D [facility]O Stop: 10/06/18 19:16 Last Admin: 09/15/18 18:26 Dose: 1 cap Glucagon (Glucagen Diagnostic Kit) 0 mg IM .STAT PRN; Protocol PRN Reason: Hypoglycemia Protocol Acyclovir 700 mg/ Sodium (Chloride) 100 mls @ 100 mls/hr IV Q8H [facility]O; Protocol Stop: 09/25/18 19:01 Last Admin: 09/17/18 18:42 Dose: 100 mls/hr Meropenem 500 mg/ Sodium (Chloride) 100 mls @ 100 mls/hr IVPB Q8H [facility]O; Protocol Insulin Aspart (Novolog) 0 unit SC Q12H [facility]; Protocol Last Admin: 09/17/18 17:55 Dose: Not Given Insulin Glargine (Lantus) 15 unit SC Q12 [facility] Last Admin: 08/23/18 10:39 Dose: Not Given Lactobacillus Acidophilus (Bacid Acidophilus) 1 cap PEG Q12 [facility] Last Admin: 09/17/18 09:34 Dose: 1 cap Methimazole (Tapazole) 20 mg PO Q8 [facility]O Last Admin: 09/17/18 15:14 Dose: 20 mg Multivitamins (Hexavitamin) 1 tab PEG DAILY [facility] Last Admin: 09/17/18 09:34 Dose: 1 tab Pantoprazole Sodium (Protonix Susp) 40 mg GT Q12H [facility]O Last Admin: 09/17/18 09:34 Dose: 40 mg Trazodone HCl (Desyrel) 25 mg GT HS [facility]O Last Admin: 09/16/18 21:59 Dose: 25 mg - Labs Labs: 09/17/18 06:16 09/17/18 06:16 PT 11.9 SECONDS (9.7-12.2) 09/04/18 06:22 INR 1.1 09/04/18 06:22 APTT 29 SECONDS (21-34) 09/02/18 05:48 Attending/Attestation - Attestation I have personally seen and examined this patient.: Yes I have fully participated in the care of the patient.: Yes I have reviewed all pertinent clinical information, including history, physical exam and plan: Yes Notes (Text): 09/17/18 19:41 This is a late entry. Care of this patient was gone over in detail with resident Dr. Villegas. [place] D.O.
[2018-09-11] MEDS: Lactobacillus Acidophilus 500 MU Cap PEG SCH ×2 (09:11→21:39)
[2018-09-11] MEDS: Bacitracin 500 Units/gm Oint Foilpak UD TOP SCH ×2 (09:11→17:42)
[2018-09-11] MEDS: Pantoprazole 40 mg Susp UD GT SCH ×2 (09:11→21:38)
[2018-09-11] MEDS: Multiple Vitamins Tab PEG SCH (09:11)
[2018-09-11] MEDS: traZODone 25 mg Tab GT SCH (21:38)
[2018-09-12] MEDS: Tobramycin 0.3% OPHT SOLN OD SCH ×5 (01:02→23:10)
[2018-09-12] MEDS: Cefepime IV 1 gm in Dextrose 1 GM/50 ML BAG IVPB SCH (03:40)
[2018-09-12] MEDS: (Novolog) Insulin Aspart, Recombinant 100 u/ml 10 ml vial SC SCH ×4 (06:53→19:12)
[2018-09-12] MEDS: Multiple Vitamins Tab PEG SCH (09:00)
[2018-09-12] MEDS: Lactobacillus Acidophilus 500 MU Cap PEG SCH ×2 (09:00→21:24)
[2018-09-12] MEDS: Bacitracin 500 Units/gm Oint Foilpak UD TOP SCH ×2 (09:00→17:40)
[2018-09-12] MEDS: Pantoprazole 40 mg Susp UD GT SCH ×2 (09:00→21:24)
--- NOTE | 2018-09-12 11:40 | CP.PCM.PN ---
<Bhanu Villegas - Last Filed: 09/12/18 16:32> Subjective - Date & Time of Evaluation Date of Evaluation: 09/12/18 Time of Evaluation: 11:36 - Subjective Subjective: HOSPITALIST SERVICE Pt seen and examined sitting in chair on trach and peg. Chest tube on suction, no acute events overnight as per nursing. Pt is more active today, following stimuli, still non verbal and inappropriate gestures. d/c cefepime today Objective - Vital Signs/Intake and Output Vital Signs (last 24 hours): Temp Pulse Resp BP Pulse Ox 97.9 F 90 28 H 122/72 100 09/12/18 08:00 09/12/18 08:00 09/12/18 08:00 09/12/18 08:00 09/12/18 08:00 Intake and Output: 09/12/18 09/12/18 06:59 18:59 Intake Total 810 Output Total 40 Balance 770 - Medications Medications: Current Medications Ascorbic Acid (Vitamin C 500 Mg Tab) 1,000 mg NG DAILY [facility] Last Admin: 09/12/18 09:01 Dose: 1,000 mg Bacitracin (Bacitracin) 1 ea TOP BID [facility] Last Admin: 09/12/18 09:00 Dose: 1 ea Dextrose (Dextrose 50% Inj) 0 ml IVP .STAT PRN; Protocol PRN Reason: Hypoglycemia Protocol Dextrose (Glutose 15) 0 gm PO .ONCE PRN; Protocol PRN Reason: Hypoglycemia Protocol Ergocalciferol (Drisdol 50,000 Intl Units Cap) 1 cap GT Q7D [facility] Stop: 10/06/18 19:16 Last Admin: 09/08/18 18:54 Dose: 1 cap Glucagon (Glucagen Diagnostic Kit) 0 mg IM .STAT PRN; Protocol PRN Reason: Hypoglycemia Protocol Cefepime HCl (Maxipime Iv 1 Gm Premix) 1 gm in 50 mls @ 100 mls/hr IVPB Q12H [facility]; Protocol Last Admin: 09/12/18 03:40 Dose: 100 mls/hr Insulin Aspart (Novolog) 0 unit SC Q6 [facility]; Protocol Last Admin: 09/12/18 06:53 Dose: Not Given Insulin Glargine (Lantus) 15 unit SC Q12 [facility] Last Admin: 08/23/18 10:39 Dose: Not Given Lactobacillus Acidophilus (Bacid Acidophilus) 1 cap PEG Q12 [facility] Last Admin: 09/12/18 09:00 Dose: 1 cap Methimazole (Tapazole) 20 mg PO Q8 [facility] Last Admin: 09/12/18 06:52 Dose: 20 mg Multivitamins (Hexavitamin) 1 tab PEG DAILY [facility] Last Admin: 09/12/18 09:00 Dose: 1 tab Pantoprazole Sodium (Protonix Susp) 40 mg GT Q12H [facility] Last Admin: 09/12/18 09:00 Dose: 40 mg Tobramycin Sulfate (Tobrex 0.3% Ophth Soln) 2 drop OD Q6H [facility] Last Admin: 09/12/18 06:52 Dose: 2 drop Trazodone HCl (Desyrel) 25 mg GT HS [facility] Last Admin: 09/11/18 21:38 Dose: 25 mg - Labs Labs: 09/11/18 06:24 09/11/18 06:24 PT 11.9 SECONDS (9.7-12.2) 09/04/18 06:22 INR 1.1 09/04/18 06:22 APTT 29 SECONDS (21-34) 09/02/18 05:48 - Additional Findings Additional findings: - Constitutional Appears: Chronically Ill - Head Exam Head Exam: NORMAL INSPECTION - Eye Exam Eye Exam: EOMI -Chest Exam chest tube draining 40cc today sero sangeounous -Extremity Exam PICC Line removed - Neck Exam Additional comments: (+) trach in place on ventilator; no signs of infection, or active bleeding; C/D/I - Respiratory Exam Respiratory Exam: Decreased Breath Sounds, Rhonchi, NORMAL BREATHING PATTERN - Cardiovascular Exam Cardiovascular Exam: REGULAR RHYTHM, +S1, +S2. absent: Tachycardia - GI/Abdominal Exam GI & Abdominal Exam: Soft, Normal Bowel Sounds. absent: Firm, Guarding, Rigid, Rebound Additional comments: PEG tube in place; no signs of infection or active bleeding; C/D/I Assessment and Plan - Assessment and Plan (Free Text) Assessment: This is a 52yo F originally admitted to the ICU for Septic shock 2/2 to PNA/UTI worsened by cardiac arrest, and anoxic brain injury. Pt is s/p IVC filter 08/23 and chest tube placement 09/06. Plan: Septic Shock secondary to Pneumonia and Urinary Tract Infection New Pneumonia-->pseudomonas Assessment/Plan * Infectious Disease (Dr. Brock) on board-->help appreciated * d/c cefepime today 09/12 * Trach Aspirate: Psuedomonas * s/p bronchoscopy (08/23/18) * Pseudomonas aerguinosa * dictated by dr maciel * 08/23: Bronchial Washings: pseudomonas Aeruginosa * s/p chest tube 09/06/18 * Pleural fluid: no growth after 4 days * Chest xray (09/08/18): tracheostomy tube and right sided chest tube as above. Diffuse bilateral hazy opacities could represent of pulmonary venous congestive changes or bilateral infiltrates. b/l effusions left larger than right * Recent culture: * 08/25/18 Blood culture: no growth 5 days X 2 * 08/23/18 Blood culture: no growth after 5 days X 2 * 08/27/18 Blood culture: no growth after 5 days * 08/27/18 UA and Urine Culture: no growth * Salmonella, shigella, or campylobacteria: not detected. * Procalcitonin: 2.89 (08/28)-->0.33 * No fevers overnight, Pt is hemodynamically stable * PICC Line removed today 09/12 @ 5pm found to be coiled on CXR Shock Liver; Transminitis Assessment/Plan * GI has signed off * Hepatitis serology negative * Ammonia: normal * elevated INR--> vitamin K 08/24 * 08/24: off statin, benadryl, benzo, ambien, and micafungin (gave dose of 08/23) * Continue to monitor LFTs; suspected medication induced or related to low blood pressure * Gi (Dr. Murray) * discussed case with fellow 08/26/18 * Abd US shows bilateral pleural effusions, patent portal vein, no hydronephrosis, no GB stones or cholecystitis * CT Abdomen/pelvis (08/25/18): limited evaluated evaluation hepatic vein thrombosis. heterogenous attenuation of the liver. Anoxic Encephalopathy Assessment/Plan * Code Blue 07/10 and 07/20 * Patient prior knowledge of 5 languages per but does not follow commands * CT head: no acute intracranial pathology. Age-related changes. no significant interval change. * suspect decline since second code blue * unable to get brain mri since she remains connected to vent via trach and has failed trials * Klonopin 0.5mg GT daily for behavioral distiburance * Brain MRI (09/08/18); no definite mass effect or suspicious extra axial collection. no evidence of acute or subacute brain infarction at this time. Borderline pattern of hydrocephalus * will ask neurology evaluate Acute Respiratory Failure Pulmonary Edema Pseudomona Pneumonia s/p Trach Assessment/Plan * Patient underwent tracheostomy 07/24/18, s/p bronchoscopy 08/23, s/p right chest tube insertion 09/06 * Patient had tolerated trach collars last weekend thru Tuesday 08/14; however she has been on vent to trach. Fi02: 30 percent * Pulmonary (Dr. Maciel) on board-->assisting with weaning from trach on vent to trach collar * Duonebs 3ml Inh Q6H * s/p bronchoscopy (08/23/18) * Pseudomonas aerguinosa * dictated by dr maciel * 08/23: Bronchial Washings: pseudomonas Aeruginosa * 08/23: Fungal Culture: Prelim: negative * 08/23: Mycobacterial culture: prelim * s/p chest tube insertion (09/06/18) * pleural fluid: no growth * 40cc drained today 09/12 * Chest physiotherapy * 09/12 CXR shows PICC is coiled in SVC Ventricular Tachycardia NSTEMI Apical Thrombus LLE DVT s/p IVC filter Assessment/Plan * Code Blue 07/10: SVT==>VT required amiodarone, magnesium, one shock delivered * Code Blue 07/20: vtach s/p amiodarone, fluid, calcium gluconate, required compressions and shock * S/p IVC filter 08/23/18 * Cardiology Dr Francisco on case help appreciated * No cath needed. * Medical management * No chemical anticoagulation in light of bleeding episodes (patient has dysfunction uterine bleeding required blood transfusions; Ob has been con sulted earlier in the hospitalization to inpatient workup)-->recommending heparin 5000 unit subq8 (DVT ppx dose) and aspirin 81mg PO daily; likely thrombus is organized a month of anticoagulation; risk is due to bleeding against stroke * off Propranolol 5mg PO TID (hold SBP<100 and HR<60) * Eliquis d/c bleeding and anemia-->dvt ppx and aspirin * Echo discussed with Dr. Francisco, patient does have residual clot-->aware we cannot anticoagulate given heavy vaginal bleeding; if patient can tolerate possible aspirin Diabetes-->chronic Assessment/Plan * HgBA1c: 7.8 * Hypoglycemic protocol * held Lantus 15 units subcutaneous at bedtime Q12 since 08/23/18 * Hypoglycemic 08/23/18 AM * Accuchecks AM and PM * off Crestor 5mg POqHS secondary to LFTs Acute on Chronic Renal Failure (resolved) Assessment/Plan * Nephrology (Dr. Hyde) on board--> help appreciated-->has signed off Hyperthyroidism? Low TSH, and Free T4 Thyroid Storm Assessment/Plan * Note Thyroid studies taken before amiodarone was given (please advised this is not amiodarone induced her levels were abnormal prior) * Patient does not have prior thyroid history * Endocrinology (Dr. Gayle) on board help appreciated * Thyroid U/S 07/16/18: showed heterogenous thyroid with multiple nodules bilaterally. She will need outpatient FNA Bx of the complex Left Lobe cyst (p lerosario see full report) * Methimazole 20mg PO TID * off Propranolol 5 mg PO TID due to hypotension * Monitor LFTs Anemia Likely Secondary to Chronic Diseases Dysfunctional uterine bleeding Assessment/Plan * Iron normal, TIBC low, Iron Saturation normal, Ferritin normal * Stool occult blood negative * B12 normal * Folate Normal * Transfused 1 unit PRBC 07/22/18, 2 unit of PRBC 08/13/18 1 unit on 08/17/18, 1 unit 08/23/18 * Patient has been seen by OB Hospitalist; no contraindication to anticoagulation * recommend outpatient workup for vaginal bleeding * Case discussed with quality technician recommending against eliquis in light of bleeding; recommending for DVT ppx and aspirin if patient can tolerate it 13 mm Left Adrenal Nodule * As seen on CT Chest 07/16/[address] abdomen/pelvis * Will need outpatient follow up for cross sectional imaging for better characterization LLE DVT s/p IVC filter * Eliquis 5 mg PO BID d/c 08/17 * Acute thrombosis of the left common femoral and femoral veins with severe reduction of the venous return on 07/18/18 venous doppler * Patient had completed one month on Eliquis; however she continues to have dysfunction uterine bleeding; cardiology is recommending against eliquis for thrombus given bleeding risk * repeat doppler to see if DVT has resolved by ultrasound repeat * s/p IVC filter (08/23/18) Deconditioning * Patient needs continued PT/OT * Brain MRI (09/08/18); no definite mass effect or suspicious extra axial collection. no evidence of acute or subacute brain infarction at this time. Borderline pattern of hydrocephalus * Patient unable to get LTAC given lack of insurance Prophylactic measure * Protonix 40mg GT BID * Lactobacillus 1 cap PO BID * MVI 1x/day * Vitamin C 1,000 NG 1x/day * s/p Trach and Peg * SCD on Right and contraindicated on Left due to DVT * Peg feedings * Pulmcar 40cc/hr * patient had frequent BMs on prior formula; no diarrhea; we have spoken with dietary to change it on 08/19/18 * PICC Line 07/31/18 * Note: speak to patient in alexis to assess neurologic status-->she does follow sometimes * s/p bronchoscopy 08/23 * s/p IVC filter 08/23 * s/p right chest tube insertion, currently approximately 650 mL of pink, serosanguinous fluid in container with some fluid in the tube * patient is FULL CODE * Social work note (08/09/18): patient is undocumented, has not health insurance, dc planning will be at home with Disposition: * Follow-up chest xray; continue monitor output from chest tube * Weaning if patient tolerates * as per ID regarding length of Cefepime (has been on since 08/27), d/c today 09/11 <[place] - Last Filed: 09/17/18 19:41> Objective - Vital Signs/Intake and Output Vital Signs (last 24 hours): Temp Pulse Resp BP Pulse Ox 99.2 F 87 26 H 107/52 L 100 09/17/18 16:00 09/17/18 16:00 09/17/18 16:00 09/17/18 16:00 09/17/18 16:00 Intake and Output: 09/17/18 09/18/18 18:59 06:59 Intake Total 380 Balance 380 - Medications Medications: Current Medications Ascorbic Acid (Vitamin C 500 Mg Tab) 1,000 mg NG DAILY [facility] Last Admin: 09/17/18 09:34 Dose: 1,000 mg Bacitracin (Bacitracin) 1 ea TOP BID [facility] Last Admin: 09/17/18 17:55 Dose: 1 ea Dextrose (Dextrose 50% Inj) 0 ml IVP .STAT PRN; Protocol PRN Reason: Hypoglycemia Protocol Dextrose (Glutose 15) 0 gm PO .ONCE PRN; Protocol PRN Reason: Hypoglycemia Protocol Ergocalciferol (Drisdol 50,000 Intl Units Cap) 1 cap GT Q7D [facility] Stop: 10/06/18 19:16 Last Admin: 09/15/18 18:26 Dose: 1 cap Glucagon (Glucagen Diagnostic Kit) 0 mg IM .STAT PRN; Protocol PRN Reason: Hypoglycemia Protocol Acyclovir 700 mg/ Sodium (Chloride) 100 mls @ 100 mls/hr IV Q8H [facility]; Protocol Stop: 09/25/18 19:01 Last Admin: 09/17/18 18:42 Dose: 100 mls/hr Meropenem 500 mg/ Sodium (Chloride) 100 mls @ 100 mls/hr IVPB Q8H [facility]; Protocol Insulin Aspart (Novolog) 0 unit SC Q12H [facility]; Protocol Last Admin: 09/17/18 17:55 Dose: Not Given Insulin Glargine (Lantus) 15 unit SC Q12 [facility] Last Admin: 08/23/18 10:39 Dose: Not Given Lactobacillus Acidophilus (Bacid Acidophilus) 1 cap PEG Q12 [facility] Last Admin: 09/17/18 09:34 Dose: 1 cap Methimazole (Tapazole) 20 mg PO Q8 [facility] Last Admin: 09/17/18 15:14 Dose: 20 mg Multivitamins (Hexavitamin) 1 tab PEG DAILY [facility] Last Admin: 09/17/18 09:34 Dose: 1 tab Pantoprazole Sodium (Protonix Susp) 40 mg GT Q12H [facility] Last Admin: 09/17/18 09:34 Dose: 40 mg Trazodone HCl (Desyrel) 25 mg GT HS [facility] Last Admin: 09/16/18 21:59 Dose: 25 mg - Labs Labs: 09/17/18 06:16 09/17/18 06:16 PT 11.9 SECONDS (9.7-12.2) 09/04/18 06:22 INR 1.1 09/04/18 06:22 APTT 29 SECONDS (21-34) 09/02/18 05:48 Attending/Attestation - Attestation I have personally seen and examined this patient.: Yes I have fully participated in the care of the patient.: Yes I have reviewed all pertinent clinical information, including history, physical exam and plan: Yes Notes (Text): 09/17/18 19:40 This is a late entry. Care of this patient was gone over in detail with resident Dr. Villegas. [place] D.O.
--- NOTE | 2018-09-12 12:28 | RAD ---
Date of service: 09/12/2018 HISTORY: chest tube placement COMPARISON: 09/10/2018 FINDINGS: LUNGS: No consolidation. Slight asymmetrical elevation the right hemidiaphragm-probably positional Tracheostomy tube in place. Similar-appearing. This extensive tubing emanating from the tracheostomy tube to the left and to the right. It is question if this is relating to the prior history of a right chest tube positioning. The right-sided tubing (which is believes related to the tracheostomy support apparatus) now projects over the upper lobe where it previously projected over the lower lobe. No large right sided chest tube is identified. There is a and pigtail type coiled pleural drainage type tubing projecting over the right lateral hemidiaphragm as it was before. PLEURA: No significant pleural effusion identified, no pneumothorax apparent. CARDIOVASCULAR: There is absence of aortic atherosclerotic calcification on x-ray. The left-sided PICC line entering subclavian is correlating in the superior vena cava as before. Probable top-normal heart size. No significant appearing pulmonary venous congestion. OSSEOUS STRUCTURES: No significant abnormalities. VISUALIZED UPPER ABDOMEN: Normal. OTHER FINDINGS: None. IMPRESSION: No large bore chest tube identified. The only right sided chest tubing present is that of a pigtail type pleural drainage catheter likely within the posterolateral right lung sulcus-this position is unchanged. No interval increasing pleural effusion noted. Tracheostomy tubing with the left and right emanating tubing support apparatus extending from it noted. Left sided PICC line tip coiling in superior vena cava as before. Call to the ICU nurseTaryn, taking care this patient was made at approximately a 09/12/2018 at 12:20 p.m.
--- NOTE | 2018-09-12 18:35 | RAD ---
HISTORY: Line adjustment COMPARISON: Chest x-ray performed 09/12/18 at 919 hr TECHNIQUE: Chest, one view. FINDINGS: Examination limited by patient obliquity. Tracheostomy tube. Pigtail drainage catheter, right lateral hemidiaphragm. Left-sided PICC has been repositioned and appears to terminate at the brachiocephalic vein or brachiocephalic/SVC junction; evaluation limited due to patient obliquity. LUNGS: Small left pleural effusion and/or consolidation. Biapical pleural thickening. No definite pneumothorax. CARDIOVASCULAR: Cardiomegaly. Atherosclerotic calcifications. OSSEOUS STRUCTURES: Degenerative changes. VISUALIZED UPPER ABDOMEN: Unremarkable. OTHER FINDINGS: None. IMPRESSION: Tracheostomy tube. Pigtail drainage catheter, right lateral hemidiaphragm. Left-sided PICC has been repositioned and appears to terminate at the brachiocephalic vein or brachiocephalic/SVC junction; evaluation limited due to patient obliquity. Cardiomegaly. Small left pleural effusion and/or consolidation. Biapical pleural thickening.
[2018-09-12] MEDS: traZODone 25 mg Tab GT SCH (21:24)
[2018-09-13] MEDS: (Novolog) Insulin Aspart, Recombinant 100 u/ml 10 ml vial SC SCH ×4 (05:18→18:51)
[2018-09-13 05:50] LABS: BASO # 0.1 K/uL (0.0-0.2); EOS # 0.3 K/uL (0.0-0.7); EOS % 3.6 % (0.0-4.0); HEMOGLOBIN 9.4 g/dL (11.0-16.0); LYMPH # 2.2 K/uL (1.0-4.3); LYMPH % 27.3 % (20.0-40.0); MEAN CELL VOLUME 89.7 fL (81.0-99.0); MEAN CORPUSCULAR HEMOGLOBIN 29.7 pg (27.0-31.0); MEAN CORPUSCULAR HGB CONC 33.1 g/dL (33.0-37.0); MEAN PLATELET VOLUME 8.6 fL (7.2-11.7); MONO # 0.9 K/uL (0.0-0.8); MONO % 10.8 % (0.0-10.0); NEUT # 4.6 K/uL (1.8-7.0); NEUT % 57.3 % (50.0-75.0); NRBC % 0.1 % (0.0-2.0); RBC 3.16 Mil/uL (3.80-5.20)
[2018-09-13] MEDS: Tobramycin 0.3% OPHT SOLN OD SCH ×4 (06:00→23:15)
[2018-09-13 06:16] LABS: ALB/GLOB RATIO 0.8 (1.0-2.1); ALT/SGPT 54 U/L (9-52); AST/SGOT 28 U/L (14-36); BLOOD UREA NITROGEN 39 mg/dL (7-17); CALCIUM 8.7 mg/dl (8.6-10.4); GFR NON-AFRICAN AMERICAN > 60
--- NOTE | 2018-09-13 08:03 | CP.PCM.PN ---
<Bhanu Villegas - Last Filed: 09/13/18 22:36> Subjective - Date & Time of Evaluation Date of Evaluation: 09/13/18 Time of Evaluation: 08:01 - Subjective Subjective: HOSPITALIST SERVICE Pt seen and examined at bedsidee, moved back from chair yesterday, as per nursing no acute events overnight, PICC line was removed yesterday after seen to be coiled on CXR. Possible midline today, 12 point ROS unable to obtain due to condition. Pt to get MID line today Objective - Vital Signs/Intake and Output Vital Signs (last 24 hours): Temp Pulse Resp BP Pulse Ox 97.5 F L 85 17 118/66 100 09/13/18 04:00 09/13/18 04:00 09/13/18 04:00 09/13/18 04:00 09/13/18 04:00 Intake and Output: 09/13/18 09/13/18 06:59 18:59 Intake Total 480 Output Total 41 Balance 439 - Medications Medications: Current Medications Ascorbic Acid (Vitamin C 500 Mg Tab) 1,000 mg NG DAILY MANOLO Last Admin: 09/12/18 09:01 Dose: 1,000 mg Bacitracin (Bacitracin) 1 ea TOP BID MANOLO Last Admin: 09/12/18 17:40 Dose: 1 ea Dextrose (Dextrose 50% Inj) 0 ml IVP .STAT PRN; Protocol PRN Reason: Hypoglycemia Protocol Dextrose (Glutose 15) 0 gm PO .ONCE PRN; Protocol PRN Reason: Hypoglycemia Protocol Ergocalciferol (Drisdol 50,000 Intl Units Cap) 1 cap GT Q7D MANOLO Stop: 10/06/18 19:16 Last Admin: 09/08/18 18:54 Dose: 1 cap Glucagon (Glucagen Diagnostic Kit) 0 mg IM .STAT PRN; Protocol PRN Reason: Hypoglycemia Protocol Insulin Aspart (Novolog) 0 unit SC Q6 MANOLO; Protocol Last Admin: 09/13/18 05:18 Dose: Not Given Insulin Glargine (Lantus) 15 unit SC Q12 MANOLO Last Admin: 08/23/18 10:39 Dose: Not Given Lactobacillus Acidophilus (Bacid Acidophilus) 1 cap PEG Q12 MANOLO Last Admin: 09/12/18 21:24 Dose: 1 cap Methimazole (Tapazole) 20 mg PO Q8 MANOLO Last Admin: 09/13/18 05:18 Dose: 20 mg Multivitamins (Hexavitamin) 1 tab PEG DAILY MANOLO Last Admin: 09/12/18 09:00 Dose: 1 tab Pantoprazole Sodium (Protonix Susp) 40 mg GT Q12H MANOLO Last Admin: 09/12/18 21:24 Dose: 40 mg Tobramycin Sulfate (Tobrex 0.3% Ophth Soln) 2 drop OD Q6H MANOLO Last Admin: 09/13/18 06:00 Dose: 2 drop Trazodone HCl (Desyrel) 25 mg GT HS MANOLO Last Admin: 09/12/18 21:24 Dose: 25 mg - Labs Labs: 09/13/18 05:42 09/13/18 05:42 PT 11.9 SECONDS (9.7-12.2) 09/04/18 06:22 INR 1.1 09/04/18 06:22 APTT 29 SECONDS (21-34) 09/02/18 05:48 - Additional Findings Additional findings: - Constitutional Appears: Chronically Ill - Head Exam Head Exam: NORMAL INSPECTION - Eye Exam Eye Exam: EOMI -Chest Exam chest tube draining 80cc today sero sangeounous -Extremity Exam PICC Line removed - Neck Exam Additional comments: (+) trach in place on ventilator; no signs of infection, or active bleeding; C/D/I - Respiratory Exam Respiratory Exam: Decreased Breath Sounds, Rhonchi, NORMAL BREATHING PATTERN - Cardiovascular Exam Cardiovascular Exam: REGULAR RHYTHM, +S1, +S2. absent: Tachycardia - GI/Abdominal Exam GI & Abdominal Exam: Soft, Normal Bowel Sounds. absent: Firm, Guarding, Rigid, Rebound Additional comments: PEG tube in place; no signs of infection or active bleeding; C/D/I Assessment and Plan - Assessment and Plan (Free Text) Assessment: Assessment and Plan - Assessment and Plan (Free Text) Assessment: This is a 52yo F originally admitted to the ICU for Septic shock 2/2 to PNA/UTI worsened by cardiac arrest, and anoxic brain injury. Pt is s/p IVC filter 08/23 and chest tube placement 09/06. Plan: Septic Shock secondary to Pneumonia and Urinary Tract Infection New Pneumonia-->pseudomonas Assessment/Plan * Infectious Disease (Dr. Brock) on board-->help appreciated * d/c cefepime 09/12 * Trach Aspirate: Psuedomonas * s/p bronchoscopy (08/23/18) * Pseudomonas aerguinosa * dictated by dr maciel * 08/23: Bronchial Washings: pseudomonas Aeruginosa * s/p chest tube 09/06/18 * Pleural fluid: no growth after 4 days * Chest xray (09/08/18): tracheostomy tube and right sided chest tube as above. Diffuse bilateral hazy opacities could represent of pulmonary venous congestive changes or bilateral infiltrates. b/l effusions left larger than right * Recent culture: * 08/25/18 Blood culture: no growth 5 days X 2 * 08/23/18 Blood culture: no growth after 5 days X 2 * 08/27/18 Blood culture: no growth after 5 days * 08/27/18 UA and Urine Culture: no growth * Salmonella, shigella, or campylobacteria: not detected. * Procalcitonin: 2.89 (08/28)-->0.33 * No fevers overnight, Pt is hemodynamically stable * PICC Line removed 09/12 @ 5pm found to be coiled on CXR * 09/13 to get MID Line Shock Liver; Transminitis Assessment/Plan * GI has signed off * Hepatitis serology negative * Ammonia: normal * elevated INR--> vitamin K 08/24 * 08/24: off statin, benadryl, benzo, ambien, and micafungin (gave dose of 08/23) * Continue to monitor LFTs; suspected medication induced or related to low blood pressure * Gi (Dr. Murray) * discussed case with fellow 08/26/18 * Abd US shows bilateral pleural effusions, patent portal vein, no h ydronephrosis, no GB stones or cholecystitis * CT Abdomen/pelvis (08/25/18): limited evaluated evaluation hepatic vein thrombosis. heterogenous attenuation of the liver. Anoxic Encephalopathy Assessment/Plan * Code Blue 07/10 and 07/20 * Patient prior knowledge of 5 languages per but does not follow commands * CT head: no acute intracranial pathology. Age-related changes. no significant interval change. * suspect decline since second code blue * unable to get brain mri since she remains connected to vent via trach and has failed trials * Klonopin 0.5mg GT daily for behavioral distiburance * Brain MRI (09/08/18); no definite mass effect or suspicious extra axial collec tion. no evidence of acute or subacute brain infarction at this time. Borderline pattern of hydrocephalus * will ask neurology evaluate Acute Respiratory Failure Pulmonary Edema Pseudomona Pneumonia s/p Trach Assessment/Plan * Patient underwent tracheostomy 07/24/18, s/p bronchoscopy 08/23, s/p right chest tube insertion 09/06 * Patient had tolerated trach collars last weekend thru Tuesday 08/14; however she has been on vent to trach. Fi02: 30 percent * Pulmonary (Dr. Maciel) on board-->assisting with weaning from trach on vent to trach collar * Duonebs 3ml Inh Q6H * s/p bronchoscopy (08/23/18) * Pseudomonas aerguinosa * dictated by dr maciel * 08/23: Bronchial Washings: pseudomonas Aeruginosa * 08/23: Fungal Culture: Prelim: negative * 08/23: Mycobacterial culture: prelim * s/p chest tube insertion (09/06/18) * pleural fluid: no growth * 40cc drained today 09/12 * Chest physiotherapy * 09/12 CXR shows PICC is coiled in SVC- removed * 09/13 to get MID Line Ventricular Tachycardia NSTEMI Apical Thrombus LLE DVT s/p IVC filter Assessment/Plan * Code Blue 07/10: SVT==>VT required amiodarone, magnesium, one shock delivered * Code Blue 07/20: vtach s/p amiodarone, fluid, calcium gluconate, required compressions and shock * S/p IVC filter 08/23/18 * Cardiology Dr Francisco on case help appreciated * No cath needed. * Medical management * No chemical anticoagulation in light of bleeding episodes (patient has dysfunction uterine bleeding required blood transfusions; Ob has been consulted earlier in the hospitalization to inpatient workup)-->recommending heparin 5000 unit subq8 (DVT ppx dose) and aspirin 81mg PO daily; likely thrombus is organized a month of anticoagulation; risk is due to bleeding against stroke * off Propranolol 5mg PO TID (hold SBP<100 and HR<60) * Eliquis d/c bleeding and anemia-->dvt ppx and aspirin * Echo discussed with Dr. Francisco, patient does have residual clot-->aware we cannot anticoagulate given heavy vaginal bleeding; if patient can tolerate possible aspirin Diabetes-->chronic Assessment/Plan * HgBA1c: 7.8 * Hypoglycemic protocol * held Lantus 15 units subcutaneous at bedtime Q12 since 08/23/18 * Hypoglycemic 08/23/18 AM * Accuchecks AM and PM * off Crestor 5mg POqHS secondary to LFTs Acute on Chronic Renal Failure (resolved) Assessment/Plan * Nephrology (Dr. Hyde) on board--> help appreciated-->has signed off Hyperthyroidism? Low TSH, and Free T4 Thyroid Storm Assessment/Plan * Note Thyroid studies taken before amiodarone was given (please advised this is not amiodarone induced her levels were abnormal prior) * Patient does not have prior thyroid history * Endocrinology (Dr. Gayle) on board help appreciated * Thyroid U/S 07/16/18: showed heterogenous thyroid with multiple nodules bilaterally. She will need outpatient FNA Bx of the complex Left Lobe cyst (please see full report) * Methimazole 20mg PO TID * off Propranolol 5 mg PO TID due to hypotension * Monitor LFTs Anemia Likely Secondary to Chronic Diseases Dysfunctional uterine bleeding Assessment/Plan * Iron normal, TIBC low, Iron Saturation normal, Ferritin normal * Stool occult blood negative * B12 normal * Folate Normal * Transfused 1 unit PRBC 07/22/18, 2 unit of PRBC 08/13/18 1 unit on 08/17/18, 1 unit 08/23/18 * Patient has been seen by OB Hospitalist; no contraindication to anticoa gulation * recommend outpatient workup for vaginal bleeding * Case discussed with lead software qa engineer recommending against eliquis in light of bleeding; recommending for DVT ppx and aspirin if patient can tolerate it 13 mm Left Adrenal Nodule * As seen on CT Chest 07/16/[address] abdomen/pelvis * Will need outpatient follow up for cross sectional imaging for better characterization LLE DVT s/p IVC filter * Eliquis 5 mg PO BID d/c 08/17 * Acute thrombosis of the left common femoral and femoral veins with severe reduction of the venous return on 07/18/18 venous doppler * Patient had completed one month on Eliquis; however she continues to have dys function uterine bleeding; cardiology is recommending against eliquis for thrombus given bleeding risk * repeat doppler to see if DVT has resolved by ultrasound repeat * s/p IVC filter (08/23/18) Deconditioning * Patient needs continued PT/OT * Brain MRI (09/08/18); no definite mass effect or suspicious extra axial collection. no evidence of acute or subacute brain infarction at this time. Borderline pattern of hydrocephalus * Patient unable to get LTAC given lack of insurance Prophylactic measure * Protonix 40mg GT BID * Lactobacillus 1 cap PO BID * MVI 1x/day * Vitamin C 1,000 NG 1x/day * s/p Trach and Peg * SCD on Right and contraindicated on Left due to DVT * Peg feedings * Pulmcar 40cc/hr * patient had frequent BMs on prior formula; no diarrhea; we have spoken with dietary to change it on 08/19/18 * PICC Line 07/31/18 * Note: speak to patient in alexis to assess neurologic status-->she does follow sometimes * s/p bronchoscopy 08/23 * s/p IVC filter 08/23 * s/p right chest tube insertion, currently approximately 650 mL of pink, serosanguinous fluid in container with some fluid in the tube * patient is FULL CODE * Social work note (08/09/18): patient is undocumented, has not health insurance, dc planning will be at home with Disposition: * PICC line out 09/12, getting MID line 09/13 * Weaning if patient tolerates * as per ID regarding length of Cefepime (has been on since 08/27), d/c'd on 09/12 <[place] - Last Filed: 09/17/18 19:40> Objective - Vital Signs/Intake and Output Vital Signs (last 24 hours): Temp Pulse Resp BP Pulse Ox 99.2 F 87 26 H 107/52 L 100 09/17/18 16:00 09/17/18 16:00 09/17/18 16:00 09/17/18 16:00 09/17/18 16:00 Intake and Output: 09/17/18 09/18/18 18:59 06:59 Intake Total 380 Balance 380 - Medications Medications: Current Medications Ascorbic Acid (Vitamin C 500 Mg Tab) 1,000 mg NG DAILY MANOLO Last Admin: 09/17/18 09:34 Dose: 1,000 mg Bacitracin (Bacitracin) 1 ea TOP BID MANOLO Last Admin: 09/17/18 17:55 Dose: 1 ea Dextrose (Dextrose 50% Inj) 0 ml IVP .STAT PRN; Protocol PRN Reason: Hypoglycemia Protocol Dextrose (Glutose 15) 0 gm PO .ONCE PRN; Protocol PRN Reason: Hypoglycemia Protocol Ergocalciferol (Drisdol 50,000 Intl Units Cap) 1 cap GT Q7D [facility]O Stop: 10/06/18 19:16 Last Admin: 09/15/18 18:26 Dose: 1 cap Glucagon (Glucagen Diagnostic Kit) 0 mg IM .STAT PRN; Protocol PRN Reason: Hypoglycemia Protocol Acyclovir 700 mg/ Sodium (Chloride) 100 mls @ 100 mls/hr IV Q8H MANOLO; Protocol Stop: 09/25/18 19:01 Last Admin: 09/17/18 18:42 Dose: 100 mls/hr Meropenem 500 mg/ Sodium (Chloride) 100 mls @ 100 mls/hr IVPB Q8H MANOLO; Protocol Insulin Aspart (Novolog) 0 unit SC Q12H MANOLO; Protocol Last Admin: 09/17/18 17:55 Dose: Not Given Insulin Glargine (Lantus) 15 unit SC Q12 MANOLO Last Admin: 08/23/18 10:39 Dose: Not Given Lactobacillus Acidophilus (Bacid Acidophilus) 1 cap PEG Q12 [facility]O Last Admin: 09/17/18 09:34 Dose: 1 cap Methimazole (Tapazole) 20 mg PO Q8 MANOLO Last Admin: 09/17/18 15:14 Dose: 20 mg Multivitamins (Hexavitamin) 1 tab PEG DAILY MANOLO Last Admin: 09/17/18 09:34 Dose: 1 tab Pantoprazole Sodium (Protonix Susp) 40 mg GT Q12H MANOLO Last Admin: 09/17/18 09:34 Dose: 40 mg Trazodone HCl (Desyrel) 25 mg GT HS MANOLO Last Admin: 09/16/18 21:59 Dose: 25 mg - Labs Labs: 09/17/18 06:16 09/17/18 06:16 PT 11.9 SECONDS (9.7-12.2) 09/04/18 06:22 INR 1.1 09/04/18 06:22 APTT 29 SECONDS (21-34) 09/02/18 05:48 Attending/Attestation - Attestation I have personally seen and examined this patient.: Yes I have fully participated in the care of the patient.: Yes I have reviewed all pertinent clinical information, including history, physical exam and plan: Yes Notes (Text): 09/17/18 19:40 This is a late entry. Care of this patient was gone over in detail with resident Dr. Villegas. [place] D.O.
[2018-09-13] MEDS: Multiple Vitamins Tab PEG SCH (11:31)
[2018-09-13] MEDS: Bacitracin 500 Units/gm Oint Foilpak UD TOP SCH ×2 (11:31→18:51)
[2018-09-13] MEDS: Pantoprazole 40 mg Susp UD GT SCH ×2 (11:31→22:30)
[2018-09-13] MEDS: Lactobacillus Acidophilus 500 MU Cap PEG SCH ×2 (15:02→22:30)
[2018-09-13] MEDS: traZODone 25 mg Tab GT SCH (22:30)
[2018-09-14] MEDS: Tobramycin 0.3% OPHT SOLN OD SCH ×3 (05:09→18:53)
[2018-09-14] MEDS: (Novolog) Insulin Aspart, Recombinant 100 u/ml 10 ml vial SC SCH ×3 (06:00→18:54)
--- NOTE | 2018-09-14 07:09 | CP.PCM.PN ---
<Bhanu Villegas - Last Filed: 09/15/18 10:28> Subjective - Date & Time of Evaluation Date of Evaluation: 09/14/18 Time of Evaluation: 07:07 - Subjective Subjective: HOSPITALIST SERVICE Pt seen and examined at bedside, Pt remains with sever cognitive and neuro deficits, does not respond with appropriate gestures, trach'd and peg'd. As per nursing, no acute events overnight endorsed, 12 point ROS unable to assess Objective - Vital Signs/Intake and Output Vital Signs (last 24 hours): Temp Pulse Resp BP Pulse Ox 97.1 F L 91 H 20 124/60 100 09/13/18 16:00 09/13/18 16:00 09/13/18 16:00 09/13/18 16:00 09/13/18 16:00 - Medications Medications: Current Medications Ascorbic Acid (Vitamin C 500 Mg Tab) 1,000 mg NG DAILY [facility] Last Admin: 09/13/18 11:31 Dose: 1,000 mg Bacitracin (Bacitracin) 1 ea TOP BID [facility] Last Admin: 09/13/18 18:51 Dose: 1 ea Dextrose (Dextrose 50% Inj) 0 ml IVP .STAT PRN; Protocol PRN Reason: Hypoglycemia Protocol Dextrose (Glutose 15) 0 gm PO .ONCE PRN; Protocol PRN Reason: Hypoglycemia Protocol Ergocalciferol (Drisdol 50,000 Intl Units Cap) 1 cap GT Q7D [facility] Stop: 10/06/18 19:16 Last Admin: 09/08/18 18:54 Dose: 1 cap Glucagon (Glucagen Diagnostic Kit) 0 mg IM .STAT PRN; Protocol PRN Reason: Hypoglycemia Protocol Insulin Aspart (Novolog) 0 unit SC Q12H [facility]; Protocol Insulin Glargine (Lantus) 15 unit SC Q12 [facility] Last Admin: 08/23/18 10:39 Dose: Not Given Lactobacillus Acidophilus (Bacid Acidophilus) 1 cap PEG Q12 [facility] Last Admin: 09/13/18 22:30 Dose: 1 cap Methimazole (Tapazole) 20 mg PO Q8 [facility] Last Admin: 09/14/18 05:08 Dose: 20 mg Multivitamins (Hexavitamin) 1 tab PEG DAILY [facility] Last Admin: 09/13/18 11:31 Dose: 1 tab Pantoprazole Sodium (Protonix Susp) 40 mg GT Q12H [facility] Last Admin: 09/13/18 22:30 Dose: 40 mg Tobramycin Sulfate (Tobrex 0.3% Ophth Soln) 2 drop OD Q6H [facility] Last Admin: 09/14/18 05:09 Dose: 2 drop Trazodone HCl (Desyrel) 25 mg GT HS [facility] Last Admin: 09/13/18 22:30 Dose: 25 mg - Labs Labs: 09/13/18 05:42 09/13/18 05:42 PT 11.9 SECONDS (9.7-12.2) 09/04/18 06:22 INR 1.1 09/04/18 06:22 APTT 29 SECONDS (21-34) 09/02/18 05:48 - Additional Findings Additional findings: - Constitutional Appears: Chronically Ill - Head Exam Head Exam: NORMAL INSPECTION - Eye Exam Eye Exam: EOMI -Chest Exam chest tube draining 80cc today sero sangeounous -Extremity Exam PICC Line removed - Neck Exam Additional comments: (+) trach in place on ventilator; no signs of infection, or active bleeding; C/D/I - Respiratory Exam Respiratory Exam: Decreased Breath Sounds, Rhonchi, NORMAL BREATHING PATTERN - Cardiovascular Exam Cardiovascular Exam: REGULAR RHYTHM, +S1, +S2. absent: Tachycardia - GI/Abdominal Exam GI & Abdominal Exam: Soft, Normal Bowel Sounds. absent: Firm, Guarding, Rigid, Rebound Additional comments: PEG tube in place; no signs of infection or active bleeding; C/D/I Assessment and Plan - Assessment and Plan (Free Text) Assessment: This is a 52yo F originally admitted to the ICU for Septic shock 2/2 to PNA/UTI worsened by cardiac arrest, and anoxic brain injury. Pt is s/p IVC filter 08/23 and chest tube placement 09/06. Plan: Septic Shock secondary to Pneumonia and Urinary Tract Infection New Pneumonia-->pseudomonas Assessment/Plan * Infectious Disease (Dr. Brock) on board-->help appreciated * d/c cefepime 09/12 * Trach Aspirate: Psuedomonas * s/p bronchoscopy (08/23/18) * Pseudomonas aerguinosa * dictated by dr maciel * 08/23: Bronchial Washings: pseudomonas Aeruginosa * s/p chest tube 09/06/18 * Pleural fluid: no growth after 4 days * Chest xray (09/08/18): tracheostomy tube and right sided chest tube as above. Diffuse bilateral hazy opacities could represent of pulmonary venous congestive changes or bilateral infiltrates. b/l effusions left larger than right * Recent culture: * 08/25/18 Blood culture: no growth 5 days X 2 * 08/23/18 Blood culture: no growth after 5 days X 2 * 08/27/18 Blood culture: no growth after 5 days * 08/27/18 UA and Urine Culture: no growth * Salmonella, shigella, or campylobacteria: not detected. * Procalcitonin: 2.89 (08/28)-->0.33 * No fevers overnight, Pt is hemodynamically stable * PICC Line removed 09/12 @ 5pm found to be coiled on CXR * 09/14 non-erythematous MID Line Shock Liver; Transminitis Assessment/Plan * GI has signed off * Hepatitis serology negative * Ammonia: normal * elevated INR--> vitamin K 08/24 * 08/24: off statin, benadryl, benzo, ambien, and micafungin (gave dose of 08/23) * Continue to monitor LFTs; suspected medication induced or related to low blood pressure * Gi (Dr. Murray) * discussed case with fellow 08/26/18 * Abd US shows bilateral pleural effusions, patent portal vein, no hydronephrosis, no GB stones or cholecystitis * CT Abdomen/pelvis (08/25/18): limited evaluated evaluation hepatic vein thrombosis. heterogenous attenuation of the liver. Anoxic Encephalopathy Assessment/Plan * Code Blue 07/10 and 07/20 * Patient prior knowledge of 5 languages per but does not follow commands * CT head: no acute intracranial pathology. Age-related changes. no significant interval change. * suspect decline since second code blue * unable to get brain mri since she remains connected to vent via trach and has failed trials * Klonopin 0.5mg GT daily for behavioral distiburance * Brain MRI (09/08/18); no definite mass effect or suspicious extra axial collection. no evidence of acute or subacute brain infarction at this time. Borderline pattern of hydrocephalus * will ask neurology evaluate Acute Respiratory Failure Pulmonary Edema Pseudomona Pneumonia s/p Trach Assessment/Plan * Patient underwent tracheostomy 07/24/18, s/p bronchoscopy 08/23, s/p right chest tube insertion 09/06 * Patient had tolerated trach collars last weekend thru Tuesday 08/14; however she has been on vent to trach. Fi02: 30 percent * Pulmonary (Dr. Maciel) on board-->assisting with weaning from trach on vent to trach collar * Duonebs 3ml Inh Q6H * s/p bronchoscopy (08/23/18) * Pseudomonas aerguinosa * dictated by dr maciel * 08/23: Bronchial Washings: pseudomonas Aeruginosa * 08/23: Fungal Culture: Prelim: negative * 08/23: Mycobacterial culture: prelim * s/p chest tube insertion (09/06/18) * pleural fluid: no growth * 40cc drained today 09/12 * Chest physiotherapy * 09/12 CXR shows PICC is coiled in SVC- removed * 09/14 MID Line appears non bloody, consider LP for hydrocephalus * Spoke w/ Neurology Dr Pham, after review of imaging unlikly source of symptoms, most likely anoxic brain injury Ventricular Tachycardia NSTEMI Apical Thrombus LLE DVT s/p IVC filter Assessment/Plan * Code Blue 07/10: SVT==>VT required amiodarone, magnesium, one shock delivered * Code Blue 07/20: vtach s/p amiodarone, fluid, calcium gluconate, required compressions and shock * S/p IVC filter 08/23/18 * Cardiology Dr Francisco on case help appreciated * No cath needed. * Medical management * No chemical anticoagulation in light of bleeding episodes (patient has dysfunction uterine bleeding required blood transfusions; Ob has been consulted earlier in the hospitalization to inpatient workup)-->recommending heparin 5000 unit subq8 (DVT ppx dose) and aspirin 81mg PO daily; likely thrombus is organized a month of anticoagulation; risk is due to bleeding against stroke * off Propranolol 5mg PO TID (hold SBP<100 and HR<60) * Eliquis d/c bleeding and anemia-->dvt ppx and aspirin * Echo discussed with Dr. Francisco, patient does have residual clot-->aware we cannot anticoagulate given heavy vaginal bleeding; if patient can tolerate possible aspirin Diabetes-->chronic Assessment/Plan * HgBA1c: 7.8 * Hypoglycemic protocol * held Lantus 15 units subcutaneous at bedtime Q12 since 08/23/18 * Hypoglycemic 08/23/18 AM * Accuchecks AM and PM * off Crestor 5mg POqHS secondary to LFTs Acute on Chronic Renal Failure (resolved) Assessment/Plan * Nephrology (Dr. Hyde) on board--> help appreciated-->has signed off Hyperthyroidism? Low TSH, and Free T4 Thyroid Storm Assessment/Plan * Note Thyroid studies taken before amiodarone was given (please advised this is not amiodarone induced her levels were abnormal prior) * Patient does not have prior thyroid history * Endocrinology (Dr. Gayle) on board help appreciated * Thyroid U/S 07/16/18: showed heterogenous thyroid with multiple nodules bilaterally. She will need outpatient FNA Bx of the complex Left Lobe cyst (please see full report) * Methimazole 20mg PO TID * off Propranolol 5 mg PO TID due to hypotension * Monitor LFTs Anemia Likely Secondary to Chronic Diseases Dysfunctional uterine bleeding Assessment/Plan * Iron normal, TIBC low, Iron Saturation normal, Ferritin normal * Stool occult blood negative * B12 normal * Folate Normal * Transfused 1 unit PRBC 07/22/18, 2 unit of PRBC 08/13/18 1 unit on 08/17/18, 1 unit 08/23/18 * Patient has been seen by OB Hospitalist; no contraindication to anticoagulation * recommend outpatient workup for vaginal bleeding * Case discussed with getterer recommending against eliquis in light of bleeding; recommending for DVT ppx and aspirin if patient can tolerate it 13 mm Left Adrenal Nodule * As seen on CT Chest 07/16/[address] abdomen/pelvis * Will need outpatient follow up for cross sectional imaging for better c haracterization LLE DVT s/p IVC filter * Eliquis 5 mg PO BID d/c 08/17 * Acute thrombosis of the left common femoral and femoral veins with severe reduction of the venous return on 07/18/18 venous doppler * Patient had completed one month on Eliquis; however she continues to have dysfunction uterine bleeding; cardiology is recommending against eliquis for thrombus given bleeding risk * repeat doppler to see if DVT has resolved by ultrasound repeat * s/p IVC filter (08/23/18) Deconditioning * Patient needs continued PT/OT * Brain MRI (09/08/18); no definite mass effect or suspicious extra axial collection. no evidence of acute or subacute brain infarction at this time. Borderline pattern of hydrocephalus * Patient unable to get LTAC given lack of insurance Prophylactic measure * Protonix 40mg GT BID * Lactobacillus 1 cap PO BID * MVI 1x/day * Vitamin C 1,000 NG 1x/day * s/p Trach and Peg * SCD on Right and contraindicated on Left due to DVT * Peg feedings * Pulmcar 40cc/hr * patient had frequent BMs on prior formula; no diarrhea; we have spoken with dietary to change it on 08/19/18 * PICC Line 07/31/18 * Note: speak to patient in alexis to assess neurologic status-->she does follow sometimes * s/p bronchoscopy 08/23 * s/p IVC filter 08/23 * s/p right chest tube insertion, currently approximately 650 mL of pink, serosanguinous fluid in container with some fluid in the tube * patient is FULL CODE * Social work note (08/09/18): patient is undocumented, has not health insurance, dc planning will be at home with Disposition: * PICC line out 09/12, MID line 09/13 * Weaning if patient tolerates * as per ID regarding length of Cefepime (has been on since 08/27), d/c'd on 09/12 <[place] - Last Filed: 09/17/18 19:40> Objective - Vital Signs/Intake and Output Vital Signs (last 24 hours): Temp Pulse Resp BP Pulse Ox 99.2 F 87 26 H 107/52 L 100 09/17/18 16:00 09/17/18 16:00 09/17/18 16:00 09/17/18 16:00 09/17/18 16:00 Intake and Output: 09/17/18 09/18/18 18:59 06:59 Intake Total 380 Balance 380 - Medications Medications: Current Medications Ascorbic Acid (Vitamin C 500 Mg Tab) 1,000 mg NG DAILY [facility] Last Admin: 09/17/18 09:34 Dose: 1,000 mg Bacitracin (Bacitracin) 1 ea TOP BID [facility] Last Admin: 09/17/18 17:55 Dose: 1 ea Dextrose (Dextrose 50% Inj) 0 ml IVP .STAT PRN; Protocol PRN Reason: Hypoglycemia Protocol Dextrose (Glutose 15) 0 gm PO .ONCE PRN; Protocol PRN Reason: Hypoglycemia Protocol Ergocalciferol (Drisdol 50,000 Intl Units Cap) 1 cap GT Q7D [facility] Stop: 10/06/18 19:16 Last Admin: 09/15/18 18:26 Dose: 1 cap Glucagon (Glucagen Diagnostic Kit) 0 mg IM .STAT PRN; Protocol PRN Reason: Hypoglycemia Protocol Acyclovir 700 mg/ Sodium (Chloride) 100 mls @ 100 mls/hr IV Q8H [facility]; Protocol Stop: 09/25/18 19:01 Last Admin: 09/17/18 18:42 Dose: 100 mls/hr Meropenem 500 mg/ Sodium (Chloride) 100 mls @ 100 mls/hr IVPB Q8H [facility]; Protocol Insulin Aspart (Novolog) 0 unit SC Q12H [facility]; Protocol Last Admin: 09/17/18 17:55 Dose: Not Given Insulin Glargine (Lantus) 15 unit SC Q12 [facility] Last Admin: 08/23/18 10:39 Dose: Not Given Lactobacillus Acidophilus (Bacid Acidophilus) 1 cap PEG Q12 [facility] Last Admin: 09/17/18 09:34 Dose: 1 cap Methimazole (Tapazole) 20 mg PO Q8 [facility] Last Admin: 09/17/18 15:14 Dose: 20 mg Multivitamins (Hexavitamin) 1 tab PEG DAILY [facility] Last Admin: 09/17/18 09:34 Dose: 1 tab Pantoprazole Sodium (Protonix Susp) 40 mg GT Q12H [facility] Last Admin: 09/17/18 09:34 Dose: 40 mg Trazodone HCl (Desyrel) 25 mg GT HS [facility] Last Admin: 09/16/18 21:59 Dose: 25 mg - Labs Labs: 09/17/18 06:16 09/17/18 06:16 PT 11.9 SECONDS (9.7-12.2) 09/04/18 06:22 INR 1.1 09/04/18 06:22 APTT 29 SECONDS (21-34) 09/02/18 05:48 Attending/Attestation - Attestation I have personally seen and examined this patient.: Yes I have fully participated in the care of the patient.: Yes I have reviewed all pertinent clinical information, including history, physical exam and plan: Yes Notes (Text): 09/17/18 19:40 This is a late entry. Care of this patient was gone over in detail with resident Dr. Villegas. [place] D.O.
[2018-09-14] MEDS: Bacitracin 500 Units/gm Oint Foilpak UD TOP SCH ×2 (11:04→18:54)
[2018-09-14] MEDS: Pantoprazole 40 mg Susp UD GT SCH ×2 (11:05→21:34)
[2018-09-14] MEDS: Lactobacillus Acidophilus 500 MU Cap PEG SCH ×2 (11:05→21:34)
[2018-09-14] MEDS: Multiple Vitamins Tab PEG SCH (11:05)
[2018-09-14] MEDS: traZODone 25 mg Tab GT SCH (21:34)
[2018-09-15 05:48] LABS: BASO % 0.4 % (0.0-2.0); EOS # 0.3 K/uL (0.0-0.7); EOS % 4.4 % (0.0-4.0); HEMOGLOBIN 10.3 g/dL (11.0-16.0); LYMPH # 1.6 K/uL (1.0-4.3); LYMPH % 20.6 % (20.0-40.0); MEAN CELL VOLUME 88.4 fL (81.0-99.0); MEAN CORPUSCULAR HEMOGLOBIN 29.2 pg (27.0-31.0); MEAN CORPUSCULAR HGB CONC 33.1 g/dL (33.0-37.0); MEAN PLATELET VOLUME 8.1 fL (7.2-11.7); MONO # 0.7 K/uL (0.0-0.8); MONO % 8.8 % (0.0-10.0); NEUT # 5.1 K/uL (1.8-7.0); NEUT % 65.8 % (50.0-75.0); RBC 3.52 Mil/uL (3.80-5.20); RED CELL DISTRIBUTION WIDTH 17.9 % (11.5-14.5); WHITE BLOOD COUNT 7.7 K/uL (4.8-10.8)
[2018-09-15] MEDS: (Novolog) Insulin Aspart, Recombinant 100 u/ml 10 ml vial SC SCH ×2 (06:00→18:17)
[2018-09-15 06:04] LABS: ALB/GLOB RATIO 0.9 (1.0-2.1); ALBUMIN 3.2 g/dL (3.5-5.0); ALT/SGPT 44 U/L (9-52); AST/SGOT 31 U/L (14-36); BLOOD UREA NITROGEN 34 mg/dL (7-17); CALCIUM 8.9 mg/dl (8.6-10.4); GFR NON-AFRICAN AMERICAN > 60
[2018-09-15] MEDS: Lactobacillus Acidophilus 500 MU Cap PEG SCH ×2 (09:12→22:30)
[2018-09-15] MEDS: Bacitracin 500 Units/gm Oint Foilpak UD TOP SCH ×2 (09:12→17:37)
[2018-09-15] MEDS: Pantoprazole 40 mg Susp UD GT SCH ×2 (09:13→22:29)
[2018-09-15] MEDS: Multiple Vitamins Tab PEG SCH (09:13)
[2018-09-15] MEDS ORDERED: Midazolam 2 MG/2 ML VIAL IVP ONE ×3 (10:39→11:25)
--- NOTE | 2018-09-15 10:39 | CP.PCM.PN ---
<Bhanu Villegas - Last Filed: 09/15/18 17:04> Subjective - Date & Time of Evaluation Date of Evaluation: 09/15/18 Time of Evaluation: 10:28 - Subjective Subjective: HOSPITALIST SERVICE Pt seen and examined at bedside, pt less active today. Pt for Lumbar puncture today assisted with Crit Care Team, consented, No acute events overnight as per nursing. chest tube removed today Objective - Vital Signs/Intake and Output Vital Signs (last 24 hours): Temp Pulse Resp BP Pulse Ox 98.1 F 94 H 20 124/60 100 09/15/18 08:00 09/15/18 08:00 09/15/18 08:00 09/15/18 08:00 09/15/18 08:00 Intake and Output: 09/15/18 09/15/18 06:59 18:59 Output Total 11 Balance -11 - Medications Medications: Current Medications Ascorbic Acid (Vitamin C 500 Mg Tab) 1,000 mg NG DAILY [facility] Last Admin: 09/15/18 09:13 Dose: 1,000 mg Bacitracin (Bacitracin) 1 ea TOP BID [facility] Last Admin: 09/15/18 09:12 Dose: 1 ea Dextrose (Dextrose 50% Inj) 0 ml IVP .STAT PRN; Protocol PRN Reason: Hypoglycemia Protocol Dextrose (Glutose 15) 0 gm PO .ONCE PRN; Protocol PRN Reason: Hypoglycemia Protocol Ergocalciferol (Drisdol 50,000 Intl Units Cap) 1 cap GT Q7D [facility] Stop: 10/06/18 19:16 Last Admin: 09/08/18 18:54 Dose: 1 cap Glucagon (Glucagen Diagnostic Kit) 0 mg IM .STAT PRN; Protocol PRN Reason: Hypoglycemia Protocol Insulin Aspart (Novolog) 0 unit SC Q12H [facility]; Protocol Last Admin: 09/14/18 18:54 Dose: Not Given Insulin Glargine (Lantus) 15 unit SC Q12 [facility] Last Admin: 08/23/18 10:39 Dose: Not Given Lactobacillus Acidophilus (Bacid Acidophilus) 1 cap PEG Q12 [facility] Last Admin: 09/15/18 09:12 Dose: 1 cap Methimazole (Tapazole) 20 mg PO Q8 [facility] Last Admin: 09/15/18 05:55 Dose: 20 mg Multivitamins (Hexavitamin) 1 tab PEG DAILY [facility] Last Admin: 09/15/18 09:13 Dose: 1 tab Pantoprazole Sodium (Protonix Susp) 40 mg GT Q12H [facility] Last Admin: 09/15/18 09:13 Dose: 40 mg Trazodone HCl (Desyrel) 25 mg GT HS [facility] Last Admin: 09/14/18 21:34 Dose: 25 mg - Labs Labs: 09/15/18 05:43 09/15/18 05:43 PT 11.9 SECONDS (9.7-12.2) 09/04/18 06:22 INR 1.1 09/04/18 06:22 APTT 29 SECONDS (21-34) 09/02/18 05:48 - Additional Findings Additional findings: - Constitutional Appears: Chronically Ill - Head Exam Head Exam: NORMAL INSPECTION - Eye Exam Eye Exam: EOMI -Chest Exam chest tube draining 20cc today sero sangeounous -Extremity Exam PICC Line removed - Neck Exam Additional comments: (+) trach in place on ventilator; no signs of infection, or active bleeding; C/D/I - Respiratory Exam Respiratory Exam: Decreased Breath Sounds, Rhonchi, NORMAL BREATHING PATTERN - Cardiovascular Exam Cardiovascular Exam: REGULAR RHYTHM, +S1, +S2. absent: Tachycardia - GI/Abdominal Exam GI & Abdominal Exam: Soft, Normal Bowel Sounds. absent: Firm, Guarding, Rigid, Rebound Additional comments: PEG tube in place; no signs of infection or active bleeding; C/D/I Assessment and Plan - Assessment and Plan (Free Text) Assessment: This is a 52yo F originally admitted to the ICU for Septic shock 2/2 to PNA/UTI worsened by cardiac arrest, and anoxic brain injury. Pt is s/p IVC filter 08/23 and chest tube placement 09/06. for LP 09/15 Plan: Septic Shock secondary to Pneumonia and Urinary Tract Infection New Pneumonia-->pseudomonas Assessment/Plan * Infectious Disease (Dr. Brock) on board-->help appreciated * d/c cefepime 09/12 * Trach Aspirate: Psuedomonas * s/p bronchoscopy (08/23/18) * Pseudomonas aerguinosa * dictated by dr maciel * 08/23: Bronchial Washings: pseudomonas Aeruginosa * s/p chest tube 09/06/18, removed today 09/15 * Pleural fluid: no growth after 4 days * Chest xray (09/08/18): tracheostomy tube and right sided chest tube as above. Diffuse bilateral hazy opacities could represent of pulmonary venous congestive changes or bilateral infiltrates. b/l effusions left larger than right * Recent culture: * 08/25/18 Blood culture: no growth 5 days X 2 * 08/23/18 Blood culture: no growth after 5 days X 2 * 08/27/18 Blood culture: no growth after 5 days * 08/27/18 UA and Urine Culture: no growth * Salmonella, shigella, or campylobacteria: not detected. * Procalcitonin: 2.89 (08/28)-->0.33 * No fevers overnight, Pt is hemodynamically stable * PICC Line removed 09/12 @ 5pm found to be coiled on CXR * 09/15 LP today, plts 270 * opening pressures: 21 * f/u cultures and serologies of CSF Shock Liver; Transminitis Assessment/Plan * GI has signed off * Hepatitis serology negative * Ammonia: normal * elevated INR--> vitamin K 08/24 * 08/24: off statin, benadryl, benzo, ambien, and micafungin (gave dose of 08/23) * Continue to monitor LFTs; suspected medication induced or related to low blood pressure * Gi (Dr. Murray) * discussed case with fellow 08/26/18 * Abd US shows bilateral pleural effusions, patent portal vein, no hydronephrosis, no GB stones or cholecystitis * CT Abdomen/pelvis (08/25/18): limited evaluated evaluation hepatic vein thrombosis. heterogenous attenuation of the liver. Anoxic Encephalopathy Assessment/Plan * Code Blue 07/10 and 07/20 * Patient prior knowledge of 5 languages per but does not follow c ommands * CT head: no acute intracranial pathology. Age-related changes. no significant interval change. * suspect decline since second code blue * unable to get brain mri since she remains connected to vent via trach and has failed trials * Klonopin 0.5mg GT daily for behavioral distiburance * Brain MRI (09/08/18); no definite mass effect or suspicious extra axial collection. no evidence of acute or subacute brain infarction at this time. Borderline pattern of hydrocephalus * will ask neurology evaluate Acute Respiratory Failure Pulmonary Edema Pseudomona Pneumonia s/p Trach Assessment/Plan * Patient underwent tracheostomy 07/24/18, s/p bronchoscopy 08/23, s/p right chest tube insertion 09/06 * Patient had tolerated trach collars last weekend thru Tuesday 08/14; however she has been on vent to trach. Fi02: 30 percent * Pulmonary (Dr. Maciel) on board-->assisting with weaning from trach on vent to trach collar * Duonebs 3ml Inh Q6H * s/p bronchoscopy (08/23/18) * Pseudomonas aerguinosa * dictated by dr maciel * 08/23: Bronchial Washings: pseudomonas Aeruginosa * 08/23: Fungal Culture: Prelim: negative * 08/23: Mycobacterial culture: prelim * s/p chest tube insertion (09/06/18) * pleural fluid: no growth * 40cc drained today 09/12 * Chest physiotherapy * 09/12 CXR shows PICC is coiled in SVC- removed * 09/14 MID Line appears non bloody, consider LP for hydrocephalus * Spoke w/ Neurology Dr Pham, after review of imaging unlikly source of symptoms, most likely anoxic brain injury Ventricular Tachycardia NSTEMI Apical Thrombus LLE DVT s/p IVC filter Assessment/Plan * Code Blue 07/10: SVT==>VT required amiodarone, magnesium, one shock delivered * Code Blue 07/20: vtach s/p amiodarone, fluid, calcium gluconate, required compressions and shock * S/p IVC filter 08/23/18 * Cardiology Dr Francisco on case help appreciated * No cath needed. * Medical management * No chemical anticoagulation in light of bleeding episodes (patient has dysfunction uterine bleeding required blood transfusions; Ob has been consulted earlier in the hospitalization to inpatient workup)-->recommending heparin 5000 unit subq8 (DVT ppx dose) and aspirin 81mg PO daily; likely thrombus is organized a month of anticoagulation; risk is due to bleeding against stroke * off Propranolol 5mg PO TID (hold SBP<100 and HR<60) * Eliquis d/c bleeding and anemia-->dvt ppx and aspirin * Echo discussed with Dr. Francisco, patient does have residual clot-->aware we cannot anticoagulate given heavy vaginal bleeding; if patient can tolerate possible aspirin Diabetes-->chronic Assessment/Plan * HgBA1c: 7.8 * Hypoglycemic protocol * held Lantus 15 units subcutaneous at bedtime Q12 since 08/23/18 * Hypoglycemic 08/23/18 AM * Accuchecks AM and PM * off Crestor 5mg POqHS secondary to LFTs Acute on Chronic Renal Failure (resolved) Assessment/Plan * Nephrology (Dr. Hyde) on board--> help appreciated-->has signed off Hyperthyroidism? Low TSH, and Free T4 Thyroid Storm Assessment/Plan * Note Thyroid studies taken before amiodarone was given (please advised this is not amiodarone induced her levels were abnormal prior) * Patient does not have prior thyroid history * Endocrinology (Dr. Gayle) on board help appreciated * Thyroid U/S 07/16/18: showed heterogenous thyroid with multiple nodules bilaterally. She will need outpatient FNA Bx of the complex Left Lobe cyst (please see full report) * Methimazole 20mg PO TID * off Propranolol 5 mg PO TID due to hypotension * Monitor LFTs Anemia Likely Secondary to Chronic Diseases Dysfunctional uterine bleeding Assessment/Plan * Iron normal, TIBC low, Iron Saturation normal, Ferritin normal * Stool occult blood negative * B12 normal * Folate Normal * Transfused 1 unit PRBC 07/22/18, 2 unit of PRBC 08/13/18 1 unit on 08/17/18, 1 unit 08/23/18 * Patient has been seen by OB Hospitalist; no contraindication to anticoagulation * recommend outpatient workup for vaginal bleeding * Case discussed with night clerk auditor recommending against eliquis in light of bleeding; recommending for DVT ppx and aspirin if patient can tolerate it 13 mm Left Adrenal Nodule * As seen on CT Chest 07/16/[address] abdomen/pelvis * Will need outpatient follow up for cross sectional imaging for better characterization LLE DVT s/p IVC filter * Eliquis 5 mg PO BID d/c 08/17 * Acute thrombosis of the left common femoral and femoral veins with severe reduction of the venous return on 07/18/18 venous doppler * Patient had completed one month on Eliquis; however she continues to have dysfunction uterine bleeding; cardiology is recommending against eliquis for t hrombus given bleeding risk * repeat doppler to see if DVT has resolved by ultrasound repeat * s/p IVC filter (08/23/18) Deconditioning * Patient needs continued PT/OT * Brain MRI (09/08/18); no definite mass effect or suspicious extra axial collection. no evidence of acute or subacute brain infarction at this time. Borderline pattern of hydrocephalus * Patient unable to get LTAC given lack of insurance Prophylactic measure * Protonix 40mg GT BID * Lactobacillus 1 cap PO BID * MVI 1x/day * Vitamin C 1,000 NG 1x/day * s/p Trach and Peg * SCD on Right and contraindicated on Left due to DVT * Peg feedings * Pulmcar 40cc/hr * patient had frequent BMs on prior formula; no diarrhea; we have spoken with dietary to change it on 08/19/18 * PICC Line 07/31/18 * Note: speak to patient in alexis to assess neurologic status-->she does follow sometimes * s/p bronchoscopy 08/23 * s/p IVC filter 08/23 * s/p right chest tube insertion, currently approximately 650 mL of pink, serosanguinous fluid in container with some fluid in the tube * patient is FULL CODE * Social work note (08/09/18): patient is undocumented, has not health insurance, dc planning will be at home with Disposition: * PICC line out 09/12, MID line 09/13 * Weaning if patient tolerates * as per ID regarding length of Cefepime (has been on since 08/27), d/c'd on 09/12 * Chest tube out 09/15 <[place] - Last Filed: 09/17/18 19:40> Objective - Vital Signs/Intake and Output Vital Signs (last 24 hours): Temp Pulse Resp BP Pulse Ox 99.2 F 87 26 H 107/52 L 100 09/17/18 16:00 09/17/18 16:00 09/17/18 16:00 09/17/18 16:00 09/17/18 16:00 Intake and Output: 09/17/18 09/18/18 18:59 06:59 Intake Total 380 Balance 380 - Medications Medications: Current Medications Ascorbic Acid (Vitamin C 500 Mg Tab) 1,000 mg NG DAILY [facility] Last Admin: 09/17/18 09:34 Dose: 1,000 mg Bacitracin (Bacitracin) 1 ea TOP BID [facility] Last Admin: 09/17/18 17:55 Dose: 1 ea Dextrose (Dextrose 50% Inj) 0 ml IVP .STAT PRN; Protocol PRN Reason: Hypoglycemia Protocol Dextrose (Glutose 15) 0 gm PO .ONCE PRN; Protocol PRN Reason: Hypoglycemia Protocol Ergocalciferol (Drisdol 50,000 Intl Units Cap) 1 cap GT Q7D [facility] Stop: 10/06/18 19:16 Last Admin: 09/15/18 18:26 Dose: 1 cap Glucagon (Glucagen Diagnostic Kit) 0 mg IM .STAT PRN; Protocol PRN Reason: Hypoglycemia Protocol Acyclovir 700 mg/ Sodium (Chloride) 100 mls @ 100 mls/hr IV Q8H [facility]; Protocol Stop: 09/25/18 19:01 Last Admin: 09/17/18 18:42 Dose: 100 mls/hr Meropenem 500 mg/ Sodium (Chloride) 100 mls @ 100 mls/hr IVPB Q8H [facility]; Protocol Insulin Aspart (Novolog) 0 unit SC Q12H [facility]; Protocol Last Admin: 09/17/18 17:55 Dose: Not Given Insulin Glargine (Lantus) 15 unit SC Q12 [facility] Last Admin: 08/23/18 10:39 Dose: Not Given Lactobacillus Acidophilus (Bacid Acidophilus) 1 cap PEG Q12 [facility] Last Admin: 09/17/18 09:34 Dose: 1 cap Methimazole (Tapazole) 20 mg PO Q8 [facility] Last Admin: 09/17/18 15:14 Dose: 20 mg Multivitamins (Hexavitamin) 1 tab PEG DAILY [facility] Last Admin: 09/17/18 09:34 Dose: 1 tab Pantoprazole Sodium (Protonix Susp) 40 mg GT Q12H [facility] Last Admin: 09/17/18 09:34 Dose: 40 mg Trazodone HCl (Desyrel) 25 mg GT HS [facility] Last Admin: 09/16/18 21:59 Dose: 25 mg - Labs Labs: 09/17/18 06:16 09/17/18 06:16 PT 11.9 SECONDS (9.7-12.2) 09/04/18 06:22 INR 1.1 09/04/18 06:22 APTT 29 SECONDS (21-34) 09/02/18 05:48 Attending/Attestation - Attestation I have personally seen and examined this patient.: Yes I have fully participated in the care of the patient.: Yes I have reviewed all pertinent clinical information, including history, physical exam and plan: Yes Notes (Text): 09/17/18 19:38 This is a late entry. Care of this patient was gone over in detail with resident Dr. Villegas. [place] D.O.
[2018-09-15] MEDS ORDERED: Midazolam 2 MG/2 ML VIAL ONE ×2 (10:49→11:27)
[2018-09-15 12:57] LABS: FLUID TYPE SPINAL FLUID
[2018-09-15 13:31] LABS: CSF APPEARANCE CLEAR/COLORLESS (CLEAR); CSF VOLUME 2 mL (0-1)
--- NOTE | 2018-09-15 13:46 | PCM.PROC ---
<Bhanu Villegas - Last Filed: 09/15/18 13:39> Procedures Attestation:: I certify that I have explained the specified Operation(s) or Procedure(s), risks, benefits and reasonable alternatives to the Patient and/or other person responsible. The opportunity was given to ask questions and all questions answered - Lumbar Puncture Consent Obtained: Written Consent () Time Out Performed: No Patient Position: Left Lateral Decubitius Skin Prep: 0.5% Chlorhexidine/Alcohol Local Anesthetic Used: Lidocaine 1% Spinal Needle Gauge: 22G Interspace Used: L3-L4 Fluid Initially Obtained: Clear Additional comments: opening pressure - 21 4 vials obtained of ~5mls each sent for culture, serology, cytology <Merlin Oshea - Last Filed: 09/15/18 15:56> Attending/Attestation - Attestation I have personally seen and examined this patient.: Yes I have fully participated in the care of the patient.: Yes I have reviewed all pertinent clinical information, including history, physical exam and plan: Yes Notes (Text): 09/15/18 15:54 I supervised, assisted and participated in this procedure with resident physi luisito Dr. Villegas. There were no complications and the patient tolerated the procedure well. The opening pressure was 20-21, which is within normal limits, so no evidence of elevated ICP. Sent off HSV, cryptococcal and fungal cultures.
[2018-09-15] MEDS: Ergocalciferol 50,000 Intl Units Cap GT SCH (18:26)
[2018-09-15] MEDS: traZODone 25 mg Tab GT SCH (22:30)
--- NOTE | 2018-09-16 00:48 | CP.PCM.PN ---
<Cydney Herbert - Last Filed: 09/16/18 00:45> Subjective - Date & Time of Evaluation Date of Evaluation: 09/16/18 Time of Evaluation: 00:45 - Subjective Subjective: PGY-1 Cydney Herbert D.O. Medicine progress note for Dr. North Nesbitt's service: Patient is seen and examined. She is s/p LP yesterday. Her chest tube was also removed yesterday. No clinical change. Patient can sometimes follow, respond to simple commands. Objective - Vital Signs/Intake and Output Vital Signs (last 24 hours): Temp Pulse Resp BP Pulse Ox 98.7 F 86 19 104/50 L 100 09/15/18 20:00 09/15/18 20:00 09/15/18 20:00 09/15/18 20:00 09/15/18 20:00 Intake and Output: 09/15/18 09/16/18 18:59 06:59 Intake Total 700 Output Total 0 Balance 700 - Medications Medications: Current Medications Ascorbic Acid (Vitamin C 500 Mg Tab) 1,000 mg NG DAILY [facility] Last Admin: 09/15/18 09:13 Dose: 1,000 mg Bacitracin (Bacitracin) 1 ea TOP BID [facility] Last Admin: 09/15/18 17:37 Dose: 1 ea Dextrose (Dextrose 50% Inj) 0 ml IVP .STAT PRN; Protocol PRN Reason: Hypoglycemia Protocol Dextrose (Glutose 15) 0 gm PO .ONCE PRN; Protocol PRN Reason: Hypoglycemia Protocol Ergocalciferol (Drisdol 50,000 Intl Units Cap) 1 cap GT Q7D [facility] Stop: 10/06/18 19:16 Last Admin: 09/15/18 18:26 Dose: 1 cap Glucagon (Glucagen Diagnostic Kit) 0 mg IM .STAT PRN; Protocol PRN Reason: Hypoglycemia Protocol Acyclovir 700 mg/ Sodium (Chloride) 100 mls @ 100 mls/hr IV Q8H [facility]; Protocol Stop: 09/25/18 19:01 Last Admin: 09/15/18 19:06 Dose: 100 mls/hr Insulin Aspart (Novolog) 0 unit SC Q12H [facility]; Protocol Last Admin: 09/15/18 18:17 Dose: Not Given Insulin Glargine (Lantus) 15 unit SC Q12 [facility] Last Admin: 08/23/18 10:39 Dose: Not Given Lactobacillus Acidophilus (Bacid Acidophilus) 1 cap PEG Q12 [facility] Last Admin: 09/15/18 22:30 Dose: 1 cap Methimazole (Tapazole) 20 mg PO Q8 [facility] Last Admin: 09/15/18 22:30 Dose: 20 mg Multivitamins (Hexavitamin) 1 tab PEG DAILY [facility] Last Admin: 09/15/18 09:13 Dose: 1 tab Pantoprazole Sodium (Protonix Susp) 40 mg GT Q12H [facility] Last Admin: 09/15/18 22:29 Dose: 40 mg Trazodone HCl (Desyrel) 25 mg GT HS [facility] Last Admin: 09/15/18 22:30 Dose: 25 mg - Labs Labs: 09/15/18 05:43 09/15/18 05:43 PT 11.9 SECONDS (9.7-12.2) 09/04/18 06:22 INR 1.1 09/04/18 06:22 APTT 29 SECONDS (21-34) 09/02/18 05:48 - Constitutional Appears: No Acute Distress, Cachectic, Chronically Ill - Head Exam Head Exam: ATRAUMATIC, NORMAL INSPECTION - Eye Exam Eye Exam: EOMI, PERRL - ENT Exam ENT Exam: Mucous Membranes Moist - Neck Exam Additional comments: trach on vent - Respiratory Exam Respiratory Exam: Decreased Breath Sounds. absent: Respiratory Distress Additional comments: vent - Cardiovascular Exam Cardiovascular Exam: REGULAR RHYTHM, +S1, +S2 - GI/Abdominal Exam GI & Abdominal Exam: Soft. absent: Tenderness Additional comments: PEG tube- no signs of infection or bleeding - Rectal Exam Rectal Exam: Deferred - Extremities Exam Extremities Exam: Normal Inspection. absent: Pedal Edema Additional comments: midline in RUE - Neurological Exam Neurological Exam: Alert, Awake. absent: Normal Gait, Oriented x3 - Psychiatric Exam Psychiatric exam: absent: Agitated - Skin Skin Exam: Dry, Intact, Normal Color, Warm Assessment and Plan - Assessment and Plan (Free Text) Assessment: This is a 52yo F originally admitted to the ICU for Septic shock 2/2 to PNA/UTI worsened by cardiac arrest, and anoxic brain injury. Pt is s/p trach and PEG. s/p IVC filter 08/23. Chest tube placement 09/06-09/15. s/p LP 09/15. Patient still unable to be weaned off vent. She has had multiple complications, including DVT and infections. Patient has shown minimal improvement of cognitive function during the course of this hospitalization. Patient does not have any i nsurance and therefore cannot be placed in rehab/NH. Multiple conversations with regarding poor prognosis- he wished to keep her full code. Plan: Anoxic Encephalopathy * Code Blue 07/10 and 07/20 * Patient prior knowledge of 5 languages per but does not always follow commands * CT head: no acute intracranial pathology. Age-related changes. no significant interval change. * Previously very agitated, especially during the night, this has recently improved * Off sedation * Trazodone 25 mg GT QHS * Brain MRI (09/08/18); no definite mass effect or suspicious extra axial collection. no evidence of acute or subacute brain infarction at this time. Borderline pattern of hydrocephalus * will ask neurology to re-evaluate Acute Respiratory Failure Pulmonary Edema Pseudomona Pneumonia s/p Trach * Patient underwent tracheostomy 07/24/18, s/p bronchoscopy 08/23, s/p right chest tube insertion 09/06 * Patient had tolerated trach collars inearly Nov; however she has been on vent to trach since. Fi02: 30% * Pulmonary (Dr. Lozada) on board-->assisting with weaning from trach on vent to trach collar * s/p bronchoscopy (08/23/18) by Dr. Lozada * Pseudomonas aerguinosa * 08/23: Bronchial Washings: pseudomonas Aeruginosa * 08/23: Fungal Culture: Prelim: negative * 08/23: Mycobacterial culture: prelim * s/p chest tube insertion (09/06/18) * pleural fluid: no growth * 40cc drained 09/12 * Chest physiotherapy * 09/12 CXR shows PICC is coiled in SVC- removed 09/14 * 09/14 MID Line appears non bloody, consider LP for hydrocephalus * Spoke w/ Neurology Dr Pham, after review of imaging unlikly source of symptoms, most likely anoxic brain injury Septic Shock secondary to Pneumonia and Urinary Tract Infection New Pneumonia-->pseudomonas * Infectious Disease (Dr. Brock) on board-->help appreciated * d/c cefepime 09/12 * Trach Aspirate: Psuedomonas * s/p bronchoscopy (08/23/18) by Dr. Lozada * Pseudomonas aerguinosa * 08/23: Bronchial Washings: pseudomonas Aeruginosa * s/p chest tube 09/06/18, removed 09/15 * Pleural fluid: no growth after 4 days * Chest xray (09/08/18): tracheostomy tube and right sided chest tube as above. Diffuse bilateral hazy opacities could represent of pulmonary venous congestive changes or bilateral infiltrates. b/l effusions left larger than right * Recent cultures: * 08/25/18 Blood culture: no growth 5 days X 2 * 08/23/18 Blood culture: no growth after 5 days X 2 * 08/27/18 Blood culture: no growth after 5 days * 08/27/18 UA and Urine Culture: no growth * Salmonella, shigella, or campylobacteria: not detected. * Procalcitonin: 2.89 (08/28)-->0.33 * No fevers overnight, Pt is hemodynamically stable * PICC Line removed 09/12 found to be coiled on CXR * 09/15 LP today, plts 270 * opening pressures: 21 * f/u cultures and serologies of CSF * Acyclovir 700 mg IV Q8H 09/15-09/25 Deconditioning * Patient needs aggressive continued PT/OT * Social work note (08/09/18): patient is undocumented, has not health insurance, dc planning will be at home with Hyperthyroidism? Low TSH, and Free T4, improving Thyroid Storm * Note Thyroid studies taken before amiodarone was given (this is NOT amiodarone induced as her levels were abnormal prior) * Patient does not have prior thyroid history * Endocrinology (Dr. Gayle) on board help appreciated * Thyroid U/S 07/16/18: showed heterogenous thyroid with multiple nodules bilaterally. She will need outpatient FNA Bx of the complex Left Lobe cyst (please see full report) * Methimazole 20mg PO Q8H * off Propranolol 5 mg PO TID due to hypotension * Monitor LFTs Anemia Likely Secondary to Chronic Diseases, stable Dysfunctional uterine bleeding * Iron normal, TIBC low, Iron Saturation normal, Ferritin normal * Stool occult blood negative * B12 normal * Folate Normal * Vaginal US: thickened endometrium * Transfused 1 unit PRBC 07/22/18, 2 unit of PRBC 08/13/18 1 unit on 08/17/18, 1 unit 08/23/18 * Patient has been seen by OB Hospitalist; no contraindication to anticoagulation * recommend outpatient workup for vaginal bleeding, no hysterectomy during this hospitalization * Case discussed with collection analyst recommending against Eliquis in light of bleeding; recommending for DVT ppx and aspirin if patient can tolerate it LLE DVT s/p IVC filter * Eliquis 5 mg PO BID d/c 08/17 * Acute thrombosis of the left common femoral and femoral veins with severe re duction of the venous return on 07/18/18 venous doppler * Patient had completed one month on Eliquis; however she continues to have dysfunction uterine bleeding; cardiology is recommending against eliquis for thrombus given bleeding risk * repeat doppler to see if DVT has resolved by ultrasound repeat * s/p IVC filter (08/23/18) Diabetes, chronic * HgBA1c: 7.8 * Hypoglycemic protocol * Held Lantus 15 units subcutaneous at bedtime Q12 since 08/23/18 * Hypoglycemic 08/23/18 AM * Accuchecks AM and PM * ISS Q12H * off Crestor 5mg PO qHS secondary to LFTs Ventricular Tachycardia, resolved NSTEMI Apical Thrombus LLE DVT s/p IVC filter * Code Blue 07/10: SVT==>VT required amiodarone, magnesium, one shock delivered * Code Blue 07/20: vtach s/p amiodarone, fluid, calcium gluconate, required c ompressions and shock * S/p IVC filter 08/23/18 * Cardiology Dr Francisco on case help appreciated * No cath needed. * Medical management * No chemical anticoagulation in light of bleeding episodes (patient has dysfunction uterine bleeding required blood transfusions; Ob has been consulted earlier in the hospitalization to inpatient workup)-->recommending heparin 5000 unit subq8 (DVT ppx dose) and aspirin 81mg PO daily; likely thrombus is organized a month of anticoagulation; risk is due to bleeding against stroke * off Propranolol 5mg PO TID (hold SBP<100 and HR<60) * Eliquis d/c due to bleeding and anemia * Echo discussed with Dr. Francisco, patient does have residual clot-->aware we cannot anticoagulate given heavy vaginal bleeding; if patient can tolerate possible aspirin Shock Liver; Transminitis, resolved * Hepatitis serology negative * Ammonia: normal * elevated INR--> vitamin K 08/24 * 08/24: off statin, benadryl, benzo, ambien, and micafungin (gave dose of 08/23) * Continue to monitor LFTs; suspected medication induced or related to low blood pressure * GI (Dr. Murray)- signed off * Abd US shows bilateral pleural effusions, patent portal vein, no hydronephrosis, no GB stones or cholecystitis * CT Abdomen/pelvis (08/25/18): limited evaluated evaluation hepatic vein thr ombosis. heterogenous attenuation of the liver. Acute on Chronic Renal Failure, resolved * Nephrology (Dr. Hyde) on board--> signed off 13 mm Left Adrenal Nodule * As seen on CT Chest 07/16/[address] abdomen/pelvis * Will need outpatient follow up for cross sectional imaging for better characterization Ppx: VTE: SCD on Right and contraindicated on Left due to DVT GI: Protonix 40mg GT Q12H * Lactobacillus 1 cap PO Q12H * MVI GT daily * Vitamin C 1,000 NG daily * Vitamin D 50,000 IU Q7D PEG feedings- Pulmcar 40cc/hr Code status: full code Case was discussed with attending, Dr. [place] N[place]itt. <[place] N[place]itt J - Last Filed: 09/16/18 18:25> Objective - Vital Signs/Intake and Output Vital Signs (last 24 hours): Temp Pulse Resp BP Pulse Ox 97.2 F L 73 11 L 103/55 L 100 09/16/18 16:00 09/16/18 16:00 09/16/18 16:00 09/16/18 16:00 09/16/18 16:00 Intake and Output: 09/16/18 09/16/18 06:59 18:59 Intake Total 680 80 Output Total 1 Balance 679 80 - Medications Medications: Current Medications Ascorbic Acid (Vitamin C 500 Mg Tab) 1,000 mg NG DAILY [facility] Last Admin: 09/16/18 09:06 Dose: 1,000 mg Bacitracin (Bacitracin) 1 ea TOP BID [facility] Last Admin: 09/16/18 18:08 Dose: 1 ea Dextrose (Dextrose 50% Inj) 0 ml IVP .STAT PRN; Protocol PRN Reason: Hypoglycemia Protocol Dextrose (Glutose 15) 0 gm PO .ONCE PRN; Protocol PRN Reason: Hypoglycemia Protocol Ergocalciferol (Drisdol 50,000 Intl Units Cap) 1 cap GT Q7D [facility] Stop: 10/06/18 19:16 Last Admin: 09/15/18 18:26 Dose: 1 cap Glucagon (Glucagen Diagnostic Kit) 0 mg IM .STAT PRN; Protocol PRN Reason: Hypoglycemia Protocol Acyclovir 700 mg/ Sodium (Chloride) 100 mls @ 100 mls/hr IV Q8H [facility]; Protocol Stop: 09/25/18 19:01 Last Admin: 09/16/18 18:08 Dose: 100 mls/hr Insulin Aspart (Novolog) 0 unit SC Q12H [facility]; Protocol Last Admin: 09/16/18 17:51 Dose: Not Given Insulin Glargine (Lantus) 15 unit SC Q12 [facility] Last Admin: 08/23/18 10:39 Dose: Not Given Lactobacillus Acidophilus (Bacid Acidophilus) 1 cap PEG Q12 [facility] Last Admin: 09/16/18 09:06 Dose: 1 cap Methimazole (Tapazole) 20 mg PO Q8 [facility] Last Admin: 09/16/18 14:15 Dose: 20 mg Multivitamins (Hexavitamin) 1 tab PEG DAILY [facility] Last Admin: 09/16/18 09:06 Dose: 1 tab Pantoprazole Sodium (Protonix Susp) 40 mg GT Q12H [facility] Last Admin: 09/16/18 09:06 Dose: 40 mg Trazodone HCl (Desyrel) 25 mg GT HS [facility] Last Admin: 09/15/18 22:30 Dose: 25 mg - Labs Labs: 09/16/18 05:58 09/16/18 05:58 PT 11.9 SECONDS (9.7-12.2) 09/04/18 06:22 INR 1.1 09/04/18 06:22 APTT 29 SECONDS (21-34) 09/02/18 05:48 Attending/Attestation - Attestation I have personally seen and examined this patient.: Yes I have fully participated in the care of the patient.: Yes I have reviewed all pertinent clinical information, including history, physical exam and plan: Yes Notes (Text): 09/16/18 18:21 Patient was seen and examined at 3 PM Care of this patient was discussed with resident Dr. Freitas. Patient is s/p Lumbar Tap 09/15/18. Spoke with ICU Physician Dr. Yee and opening pressure during the tap was not elevated. CSF studies were sent and will need to be followed up. Acyclovir was started. I spoke with patient's on 09/15/18 and informed him of the need for for Lumbar Tap to check for elevated opening pressure and to obtain CSF for cultures. He was not present at the time of my exam today. [place] N[place]itt D.O.
[2018-09-16] MEDS: (Novolog) Insulin Aspart, Recombinant 100 u/ml 10 ml vial SC SCH ×2 (06:00→17:51)
[2018-09-16 06:02] LABS: BASO % 0.6 % (0.0-2.0); EOS # 0.3 K/uL (0.0-0.7); HEMOGLOBIN 8.9 g/dL (11.0-16.0); LYMPH # 1.3 K/uL (1.0-4.3); LYMPH % 16.5 % (20.0-40.0); MEAN CELL VOLUME 88.6 fL (81.0-99.0); MEAN CORPUSCULAR HEMOGLOBIN 29.6 pg (27.0-31.0); MEAN CORPUSCULAR HGB CONC 33.4 g/dL (33.0-37.0); MEAN PLATELET VOLUME 8.8 fL (7.2-11.7); MONO # 0.5 K/uL (0.0-0.8); MONO % 6.4 % (0.0-10.0); NEUT # 5.7 K/uL (1.8-7.0); NEUT % 72.5 % (50.0-75.0); RBC 3.02 Mil/uL (3.80-5.20); RED CELL DISTRIBUTION WIDTH 17.9 % (11.5-14.5); WHITE BLOOD COUNT 7.8 K/uL (4.8-10.8)
[2018-09-16 06:09] LABS: ALB/GLOB RATIO 0.8 (1.0-2.1); ALBUMIN 2.9 g/dL (3.5-5.0); ALT/SGPT 44 U/L (9-52); AST/SGOT 38 U/L (14-36); BLOOD UREA NITROGEN 36 mg/dL (7-17); CALCIUM 8.5 mg/dl (8.6-10.4); GFR NON-AFRICAN AMERICAN > 60
[2018-09-16] MEDS: Multiple Vitamins Tab PEG SCH (09:06)
[2018-09-16] MEDS: Bacitracin 500 Units/gm Oint Foilpak UD TOP SCH ×2 (09:06→18:08)
[2018-09-16] MEDS: Lactobacillus Acidophilus 500 MU Cap PEG SCH ×2 (09:06→21:59)
[2018-09-16] MEDS: Pantoprazole 40 mg Susp UD GT SCH ×2 (09:06→21:59)
--- NOTE | 2018-09-16 14:43 | CP.PCM.PCO ---
Physician Communication Note - Physician Communication Note Physician Communication Note: Please see above
[2018-09-16] MEDS: traZODone 25 mg Tab GT SCH (21:59)
--- NOTE | 2018-09-17 02:15 | CP.PCM.PN ---
<Cydney Herbert - Last Filed: 09/17/18 02:13> Subjective - Date & Time of Evaluation Date of Evaluation: 09/17/18 Time of Evaluation: 02:13 - Subjective Subjective: PGY-1 Cydney Herbert D.O. Medicine progress note for Dr. North Nesbitt's service: Patient was seen and examined this morning. No clinical change. She does not appear agitated. Still on vent. Objective - Vital Signs/Intake and Output Vital Signs (last 24 hours): Temp Pulse Resp BP Pulse Ox 97.2 F L 87 11 L 103/55 L 100 09/16/18 16:00 09/16/18 20:00 09/16/18 16:00 09/16/18 16:00 09/16/18 16:00 Intake and Output: 09/16/18 09/17/18 18:59 06:59 Intake Total 80 160 Balance 80 160 - Medications Medications: Current Medications Ascorbic Acid (Vitamin C 500 Mg Tab) 1,000 mg NG DAILY [facility] Last Admin: 09/16/18 09:06 Dose: 1,000 mg Bacitracin (Bacitracin) 1 ea TOP BID [facility] Last Admin: 09/16/18 18:08 Dose: 1 ea Dextrose (Dextrose 50% Inj) 0 ml IVP .STAT PRN; Protocol PRN Reason: Hypoglycemia Protocol Dextrose (Glutose 15) 0 gm PO .ONCE PRN; Protocol PRN Reason: Hypoglycemia Protocol Ergocalciferol (Drisdol 50,000 Intl Units Cap) 1 cap GT Q7D [facility] Stop: 10/06/18 19:16 Last Admin: 09/15/18 18:26 Dose: 1 cap Glucagon (Glucagen Diagnostic Kit) 0 mg IM .STAT PRN; Protocol PRN Reason: Hypoglycemia Protocol Acyclovir 700 mg/ Sodium (Chloride) 100 mls @ 100 mls/hr IV Q8H [facility]; Protocol Stop: 09/25/18 19:01 Last Admin: 09/16/18 18:08 Dose: 100 mls/hr Insulin Aspart (Novolog) 0 unit SC Q12H [facility]; Protocol Last Admin: 09/16/18 17:51 Dose: Not Given Insulin Glargine (Lantus) 15 unit SC Q12 [facility] Last Admin: 08/23/18 10:39 Dose: Not Given Lactobacillus Acidophilus (Bacid Acidophilus) 1 cap PEG Q12 [facility] Last Admin: 09/16/18 21:59 Dose: 1 cap Methimazole (Tapazole) 20 mg PO Q8 [facility] Last Admin: 09/16/18 21:58 Dose: 20 mg Multivitamins (Hexavitamin) 1 tab PEG DAILY [facility] Last Admin: 09/16/18 09:06 Dose: 1 tab Pantoprazole Sodium (Protonix Susp) 40 mg GT Q12H [facility] Last Admin: 09/16/18 21:59 Dose: 40 mg Trazodone HCl (Desyrel) 25 mg GT HS [facility] Last Admin: 09/16/18 21:59 Dose: 25 mg - Labs Labs: 09/16/18 05:58 09/16/18 05:58 PT 11.9 SECONDS (9.7-12.2) 09/04/18 06:22 INR 1.1 09/04/18 06:22 APTT 29 SECONDS (21-34) 09/02/18 05:48 - Constitutional Appears: No Acute Distress, Cachectic, Chronically Ill - Head Exam Head Exam: ATRAUMATIC, NORMAL INSPECTION - Eye Exam Eye Exam: EOMI, Normal appearance, PERRL - ENT Exam ENT Exam: Mucous Membranes Moist - Neck Exam Additional comments: trach - Respiratory Exam Respiratory Exam: absent: Respiratory Distress Additional comments: vent - Cardiovascular Exam Cardiovascular Exam: REGULAR RHYTHM - GI/Abdominal Exam GI & Abdominal Exam: Soft. absent: Tenderness Additional comments: PEG tube - Rectal Exam Rectal Exam: Deferred - Extremities Exam Extremities Exam: Normal Inspection. absent: Joint Swelling, Pedal Edema - Back Exam Back Exam: NORMAL INSPECTION - Neurological Exam Neurological Exam: Alert, Altered, Awake. absent: Normal Gait - Skin Skin Exam: Dry, Intact, Normal Color, Warm Assessment and Plan - Assessment and Plan (Free Text) Assessment: Patient is a 52 yo female originally admitted to the ICU for Septic shock 2/2 to PNA/UTI worsened by cardiac arrest, and anoxic brain injury. Pt is s/p trach and PEG. s/p IVC filter 08/23. Chest tube placement 09/06-09/15. s/p LP 09/15. Patient still unable to be weaned off vent. She has had multiple complications, including DVT and infections. Most recently, MRI showed potential hydrocephalus. LP done and opening pressure was normal. Patient has shown minimal improvement of cognitive function during the course of this hospitalization. Patient does not have any insurance and therefore cannot be placed in rehab/NH. Multiple conversations with regarding poor prognosis- he wished to keep her full code. Plan: Anoxic Encephalopathy * Code Blue 07/10 and 07/20 * Patient prior knowledge of 5 languages per but does not always follow commands * CT head: no acute intracranial pathology. Age-related changes. no significant interval change. * Previously very agitated, especially during the night, this has recently improved * Off sedation * Neurology (Dr. Pham/George) * Trazodone 25 mg GT QHS * Brain MRI (09/08/18); no definite mass effect or suspicious extra axial collection. no evidence of acute or subacute brain infarction at this time. Borderline pattern of hydrocephalus * LP 09/15- normal opening pressure () Acute Respiratory Failure, stable Pulmonary Edema Pseudomonas Pneumonia Plerual effusion s/p Trach * Patient underwent tracheostomy 07/24/18, s/p bronchoscopy 08/23, s/p right chest tube insertion 09/06 * Patient had tolerated trach collars inearly Nov; however she has been on vent to trach since. Fi02: 30% * Pulmonary (Dr. Lozada)-->assisting with weaning from trach on vent to trach collar * s/p bronchoscopy (08/23/18) by Dr. Lozada * Pseudomonas aerguinosa * 08/23: Bronchial Washings: pseudomonas Aeruginosa * 08/23: Fungal Culture: Prelim: negative * 08/23: Mycobacterial culture: prelim * s/p chest tube insertion (09/06/18) * pleural fluid: no growth * 40cc drained 09/12 * Chest physiotherapy * 09/12 CXR shows PICC is coiled in SVC- removed 09/14 * 09/14 MID Line appears non bloody, consider LP for hydrocephalus * Spoke w/ Neurology Dr Pham, after review of imaging unlikly source of symptoms, most likely anoxic brain injury Septic Shock secondary to Pneumonia and Urinary Tract Infection, resolved Patient susceptible to many infections in ICU setting- attempt to move to floor when possible * Infectious Disease (Dr. Brock) * d/c cefepime 09/12 * Trach Aspirate: Psuedomonas * s/p bronchoscopy (08/23/18) by Dr. Lozada * Pseudomonas aerguinosa * 08/23: Bronchial Washings: Pseudomonas Aeruginosa * s/p chest tube 09/06/18, removed 09/15 * Pleural fluid: no growth after 4 days * Chest xray (09/08/18): tracheostomy tube and right sided chest tube as above. Diffuse bilateral hazy opacities could represent of pulmonary venous congestive changes or bilateral infiltrates. b/l effusions left larger than right * Recent cultures: * 08/25/18 Blood culture: no growth 5 days X 2 * 08/23/18 Blood culture: no growth after 5 days X 2 * 08/27/18 Blood culture: no growth after 5 days * 08/27/18 UA and Urine Culture: no growth * Salmonella, shigella, or campylobacteria: not detected. * Procalcitonin: 2.89->0.33 * No fevers overnight, Pt is hemodynamically stable * PICC Line removed 09/12 found to be coiled on CXR * 09/15 LP, plts 270 * opening pressure: 21 * f/u cultures and serologies of CSF * Acyclovir 700 mg IV Q8H 09/15-09/25 Deconditioning * Patient needs aggressive continued PT/OT * Social work note (08/09/18): patient is undocumented, has not health insurance, dc planning will be at home with Hyperthyroidism? Low TSH, and Free T4, improving Thyroid Storm * Note: Thyroid studies taken before amiodarone was given (this is NOT amiodarone induced as her levels were abnormal prior) * Patient does not have prior thyroid history * Endocrinology (Dr. Gayle) * Thyroid U/S 07/16/18: showed heterogenous thyroid with multiple nodules bilaterally. She will need outpatient FNA Bx of the complex Left Lobe cyst (please see full report) * Methimazole 20mg PO Q8H * off Propranolol 5 mg PO TID due to hypotension * Monitor LFTs Anemia Likely Secondary to Chronic Diseases, stable Dysfunctional uterine bleeding * Iron normal, TIBC low, Iron Saturation normal, Ferritin normal * Stool occult blood negative * B12 normal * Folate Normal * Vaginal US: thickened endometrium * Transfused 1 unit PRBC 07/22/18, 2 unit of PRBC 08/13/18 1 unit on 08/17/18, 1 unit 08/23/18 * Patient has been seen by OBGYN Hospitalist; no contraindication to anticoagulation * recommend outpatient workup for vaginal bleeding, no hysterectomy during this hospitalization * Case discussed with carpenter cradle and dolly recommending against Eliquis in light of bleeding; recommending for DVT ppx and aspirin if patient can tolerate it LLE DVT s/p IVC filter * Eliquis 5 mg PO BID d/c 08/17 * Acute thrombosis of the left common femoral and femoral veins with severe reduction of the venous return on 07/18/18 venous doppler * Patient had completed one month on Eliquis; however she continues to have dysfunction uterine bleeding; cardiology is recommending against Eliquis for thrombus given bleeding risk * s/p IVC filter (08/23/18) Diabetes, chronic * HgBA1c: 7.8 * Hypoglycemic protocol * Held Lantus 15 units subcutaneous at bedtime Q12 since 08/23/18 * Hypoglycemic 08/23/18 AM * Accuchecks AM and PM * ISS Q12H * Off Crestor 5mg PO qHS secondary to LFTs Ventricular Tachycardia, resolved NSTEMI Apical Thrombus LLE DVT s/p IVC filter * Code Blue 07/10: SVT==>VT required amiodarone, magnesium, one shock delivered * Code Blue 07/20: vtach s/p amiodarone, fluid, calcium gluconate, required compressions and shock * s/p IVC filter 08/23/18 * Cardiology (Dr. Francisco) * No cath needed * Medical management * No chemical anticoagulation in light of bleeding episodes (patient has dysfunction uterine bleeding required blood transfusions; Ob has been consulted earlier in the hospitalization to inpatient workup)-->recommending heparin 5000 unit subq8 (DVT ppx dose) and aspirin 81mg PO daily; likely thrombus is organized a month of anticoagulation; risk is due to bleeding against stroke * Off Propranolol 5mg PO TID * Eliquis d/c due to bleeding and anemia * Echo discussed with Dr. Francisco, patient does have residual clot-->aware we cannot anticoagulate given heavy vaginal bleeding; if patient can tolerate possible aspirin Shock Liver; Transminitis, resolved * Hepatitis serology negative * Ammonia: normal * Elevated INR--> vitamin K 08/24 * 08/24: off statin, benadryl, benzo, ambien, and micafungin (gave dose of 08/23) * Continue to monitor LFTs; suspected medication induced or related to low blood pressure * GI (Dr. Murray)- signed off * Abd US shows bilateral pleural effusions, patent portal vein, no hydronephrosis, no GB stones or cholecystitis * CT Abdomen/pelvis (08/25/18): limited evaluated evaluation hepatic vein thrombosis. heterogenous attenuation of the liver. Acute on Chronic Renal Failure, resolved * Nephrology (Dr. Hyde)--> signed off 13 mm Left Adrenal Nodule * As seen on CT Chest 07/16/[address] abdomen/pelvis * Will need outpatient follow up for cross sectional imaging for better characterization Ppx: VTE: SCD on Right and contraindicated on Left due to DVT GI: Protonix 40mg GT Q12H * Lactobacillus 1 cap PO Q12H * MVI GT daily * Vitamin C 1,000 NG daily * Vitamin D 50,000 IU Q7D PEG feedings- Pulmocare 40cc/hr with 250 mL water flush Q6H Code status: full code Case was discussed with attending, Dr. [place] N[place]. <[place] N[place]itt J - Last Filed: 09/17/18 19:36> Objective - Vital Signs/Intake and Output Vital Signs (last 24 hours): Temp Pulse Resp BP Pulse Ox 99.2 F 87 26 H 107/52 L 100 09/17/18 16:00 09/17/18 16:00 09/17/18 16:00 09/17/18 16:00 09/17/18 16:00 Intake and Output: 09/17/18 09/18/18 18:59 06:59 Intake Total 380 Balance 380 - Medications Medications: Current Medications Ascorbic Acid (Vitamin C 500 Mg Tab) 1,000 mg NG DAILY [facility] Last Admin: 09/17/18 09:34 Dose: 1,000 mg Bacitracin (Bacitracin) 1 ea TOP BID [facility] Last Admin: 09/17/18 17:55 Dose: 1 ea Dextrose (Dextrose 50% Inj) 0 ml IVP .STAT PRN; Protocol PRN Reason: Hypoglycemia Protocol Dextrose (Glutose 15) 0 gm PO .ONCE PRN; Protocol PRN Reason: Hypoglycemia Protocol Ergocalciferol (Drisdol 50,000 Intl Units Cap) 1 cap GT Q7D [facility] Stop: 10/06/18 19:16 Last Admin: 09/15/18 18:26 Dose: 1 cap Glucagon (Glucagen Diagnostic Kit) 0 mg IM .STAT PRN; Protocol PRN Reason: Hypoglycemia Protocol Acyclovir 700 mg/ Sodium (Chloride) 100 mls @ 100 mls/hr IV Q8H [facility]; Protocol Stop: 09/25/18 19:01 Last Admin: 09/17/18 18:42 Dose: 100 mls/hr Meropenem 500 mg/ Sodium (Chloride) 100 mls @ 100 mls/hr IVPB Q8H [facility]; Protocol Insulin Aspart (Novolog) 0 unit SC Q12H [facility]; Protocol Last Admin: 09/17/18 17:55 Dose: Not Given Insulin Glargine (Lantus) 15 unit SC Q12 [facility] Last Admin: 08/23/18 10:39 Dose: Not Given Lactobacillus Acidophilus (Bacid Acidophilus) 1 cap PEG Q12 [facility] Last Admin: 09/17/18 09:34 Dose: 1 cap Methimazole (Tapazole) 20 mg PO Q8 [facility] Last Admin: 09/17/18 15:14 Dose: 20 mg Multivitamins (Hexavitamin) 1 tab PEG DAILY [facility] Last Admin: 09/17/18 09:34 Dose: 1 tab Pantoprazole Sodium (Protonix Susp) 40 mg GT Q12H [facility] Last Admin: 09/17/18 09:34 Dose: 40 mg Trazodone HCl (Desyrel) 25 mg GT HS [facility] Last Admin: 09/16/18 21:59 Dose: 25 mg - Labs Labs: 09/17/18 06:16 09/17/18 06:16 PT 11.9 SECONDS (9.7-12.2) 09/04/18 06:22 INR 1.1 09/04/18 06:22 APTT 29 SECONDS (21-34) 09/02/18 05:48 Attending/Attestation - Attestation I have personally seen and examined this patient.: Yes I have fully participated in the care of the patient.: Yes I have reviewed all pertinent clinical information, including history, physical exam and plan: Yes Notes (Text): 09/17/18 19:29 Patient was seen and examined at 12:00 PM ICU Bed 12 Care of this patient was discussed with resident Dr. Herbert. Patient tracheal aspirate from 09/16/18 shows Gram Negative organisms and therefore she was started on Meropenem 500 mg IV Q8H considering that on prior sputum culture patient grew Psuedomonas. She is also on Acyclovir 700 mg IV Q8H for possible Viral Encephalitis. Please follow up CSF studies/cultures. Spoke with patient's again today at the time of exam. Explained to him medication additions and the reasons why. Again expressed to him my concerns for possible anoxic brain injury for patient should the CSF studies come back negative. [place] N[place]itt D.O.
[2018-09-17] MEDS: (Novolog) Insulin Aspart, Recombinant 100 u/ml 10 ml vial SC SCH ×2 (06:07→17:55)
[2018-09-17 06:43] LABS: BASO # 0.1 K/uL (0.0-0.2); BASO % 0.7 % (0.0-2.0); EOS # 0.3 K/uL (0.0-0.7); EOS % 3.9 % (0.0-4.0); HEMOGLOBIN 10.7 g/dL (11.0-16.0); LYMPH # 1.5 K/uL (1.0-4.3); LYMPH % 18.7 % (20.0-40.0); MEAN CELL VOLUME 89.1 fL (81.0-99.0); MEAN CORPUSCULAR HEMOGLOBIN 29.8 pg (27.0-31.0); MEAN CORPUSCULAR HGB CONC 33.4 g/dL (33.0-37.0); MEAN PLATELET VOLUME 8.6 fL (7.2-11.7); MONO # 0.5 K/uL (0.0-0.8); MONO % 6.9 % (0.0-10.0); NEUT # 5.5 K/uL (1.8-7.0); NEUT % 69.8 % (50.0-75.0); RBC 3.6 Mil/uL (3.80-5.20); RED CELL DISTRIBUTION WIDTH 17.9 % (11.5-14.5); WHITE BLOOD COUNT 7.9 K/uL (4.8-10.8)
[2018-09-17 06:56] LABS: ALB/GLOB RATIO 0.9 (1.0-2.1); ALBUMIN 3.5 g/dL (3.5-5.0); ALT/SGPT 63 U/L (9-52); AST/SGOT 53 U/L (14-36); BLOOD UREA NITROGEN 34 mg/dL (7-17); CALCIUM 9.3 mg/dl (8.6-10.4); GFR NON-AFRICAN AMERICAN > 60
[2018-09-17] MEDS: Pantoprazole 40 mg Susp UD GT SCH ×2 (09:34→21:26)
[2018-09-17] MEDS: Bacitracin 500 Units/gm Oint Foilpak UD TOP SCH ×2 (09:34→17:55)
[2018-09-17] MEDS: Multiple Vitamins Tab PEG SCH (09:34)
[2018-09-17] MEDS: Lactobacillus Acidophilus 500 MU Cap PEG SCH ×2 (09:34→21:26)
--- NOTE | 2018-09-17 19:36 | CP.PCM.PCO ---
Physician Communication Note - Physician Communication Note Physician Communication Note: Please see above
[2018-09-17] MEDS: Meropenem 500 MG in Sodium Chloride 0.9% 100 ML IVPB SCH (20:26)
[2018-09-17] MEDS: traZODone 25 mg Tab GT SCH (21:26)
[2018-09-17 23:56] LABS: SPECIMEN SOURCE CSF
[2018-09-18] MEDS: Meropenem 500 MG in Sodium Chloride 0.9% 100 ML IVPB SCH ×2 (02:57→11:42)
[2018-09-18] MEDS: (Novolog) Insulin Aspart, Recombinant 100 u/ml 10 ml vial SC SCH ×2 (06:00→18:00)
[2018-09-18] MEDS: Bacitracin 500 Units/gm Oint Foilpak UD TOP SCH ×2 (09:20→18:31)
[2018-09-18] MEDS: Pantoprazole 40 mg Susp UD GT SCH ×2 (09:35→21:36)
[2018-09-18] MEDS: Lactobacillus Acidophilus 500 MU Cap PEG SCH ×2 (09:36→21:35)
[2018-09-18] MEDS: Multiple Vitamins Tab PEG SCH (09:36)
--- NOTE | 2018-09-18 12:42 | CP.PCM.PN ---
<Elijah Weinberg - Last Filed: 09/18/18 17:42> Subjective - Date & Time of Evaluation Date of Evaluation: 09/18/18 Time of Evaluation: 12:31 - Subjective Subjective: PGY-[address] Garcia Patient seen and examined at bedside. No acute events overnight. She was straight cathed this morning for urinary retention of about 900cc. Per nursing, patient has generally been less agitated. ROS unable to obtain 2/2 patient nonverbal. Meropenem discontinued today, started Provigil (see plan) Objective - Vital Signs/Intake and Output Vital Signs (last 24 hours): Temp Pulse Resp BP Pulse Ox 98.7 F 94 H 20 121/58 L 99 09/18/18 08:00 09/18/18 08:00 09/18/18 08:00 09/18/18 08:00 09/18/18 08:00 Intake and Output: 09/18/18 09/18/18 06:59 18:59 Output Total 1000 Balance -1000 - Medications Medications: Current Medications Ascorbic Acid (Vitamin C 500 Mg Tab) 1,000 mg NG DAILY [facility] Last Admin: 09/18/18 09:36 Dose: 1,000 mg Bacitracin (Bacitracin) 1 ea TOP BID [facility] Last Admin: 09/17/18 17:55 Dose: 1 ea Dextrose (Dextrose 50% Inj) 0 ml IVP .STAT PRN; Protocol PRN Reason: Hypoglycemia Protocol Dextrose (Glutose 15) 0 gm PO .ONCE PRN; Protocol PRN Reason: Hypoglycemia Protocol Ergocalciferol (Drisdol 50,000 Intl Units Cap) 1 cap GT Q7D [facility] Stop: 10/06/18 19:16 Last Admin: 09/15/18 18:26 Dose: 1 cap Glucagon (Glucagen Diagnostic Kit) 0 mg IM .STAT PRN; Protocol PRN Reason: Hypoglycemia Protocol Acyclovir 700 mg/ Sodium (Chloride) 100 mls @ 100 mls/hr IV Q8H [facility]; Protocol Stop: 09/25/18 19:01 Last Admin: 09/18/18 10:29 Dose: 100 mls/hr Meropenem 500 mg/ Sodium (Chloride) 100 mls @ 100 mls/hr IVPB Q8H [facility]; Protocol Last Admin: 09/18/18 11:42 Dose: 100 mls/hr Insulin Aspart (Novolog) 0 unit SC Q12H [facility]; Protocol Last Admin: 09/18/18 06:00 Dose: Not Given Insulin Glargine (Lantus) 15 unit SC Q12 [facility] Last Admin: 08/23/18 10:39 Dose: Not Given Lactobacillus Acidophilus (Bacid Acidophilus) 1 cap PEG Q12 [facility] Last Admin: 09/18/18 09:36 Dose: 1 cap Methimazole (Tapazole) 20 mg PO Q8 [facility] Last Admin: 09/18/18 06:48 Dose: 20 mg Multivitamins (Hexavitamin) 1 tab PEG DAILY [facility] Last Admin: 09/18/18 09:36 Dose: 1 tab Pantoprazole Sodium (Protonix Susp) 40 mg GT Q12H [facility] Last Admin: 09/18/18 09:35 Dose: 40 mg Trazodone HCl (Desyrel) 25 mg GT HS [facility] Last Admin: 09/17/18 21:26 Dose: 25 mg - Labs Labs: 09/17/18 06:16 09/17/18 06:16 PT 11.9 SECONDS (9.7-12.2) 09/04/18 06:22 INR 1.1 09/04/18 06:22 APTT 29 SECONDS (21-34) 09/02/18 05:48 - Constitutional Appears: No Acute Distress, Older Than Stated Age, Confused, Chronically Ill - Head Exam Head Exam: ATRAUMATIC, NORMAL INSPECTION - Eye Exam Eye Exam: EOMI, Normal appearance Pupil Exam: NORMAL ACCOMODATION - ENT Exam ENT Exam: Mucous Membranes Moist - Neck Exam Additional comments: Trach in place, on vent - Respiratory Exam Respiratory Exam: Clear to Ausculation Bilateral, NORMAL BREATHING PATTERN. absent: Rales, Rhonchi, Wheezes - Cardiovascular Exam Cardiovascular Exam: REGULAR RHYTHM, +S1, +S2 - GI/Abdominal Exam GI & Abdominal Exam: Soft, Normal Bowel Sounds. absent: Tenderness - Extremities Exam Extremities Exam: absent: Pedal Edema, Tenderness - Neurological Exam Neurological Exam: Alert (Patient generally showing improved alertness, but still is not oriented or making verbal responses), Awake. absent: Oriented x3 - Psychiatric Exam Psychiatric exam: Normal Affect, Normal Mood - Skin Skin Exam: Dry, Intact, Normal Color Assessment and Plan - Assessment and Plan (Free Text) Assessment: Assessment: Patient is a 52 yo female originally admitted to the ICU for Septic shock 2/ to PNA/UTI worsened by cardiac arrest, and anoxic brain injury. Pt is s/p trach and PEG. s/p IVC filter 08/23. Chest tube placement 09/06-09/15. s/p LP 09/15. Patient still has been unable to be weaned off vent. She has had multiple complications, including DVT and infections. Most recently, MRI showed potential hydrocephalus. LP done and opening pressure was normal. Patient has shown minimal improvement of cognitive function during the course of this hospitalization. Patient does not have any insurance and therefore cannot be placed in rehab/NH. Multiple conversations with regarding poor prognos is- he wished to keep her full code. Plan: Anoxic Encephalopathy * Code Blue 07/10 and 07/20 * Patient prior knowledge of 5 languages per but does not always follow commands * CT head: no acute intracranial pathology. Age-related changes. no significant interval change. * Acyclovir 700 mg IV Q8H to cover for possible Viral Encephalitis * CSF negative for HSV 1 or 2 - will consider discontinuing this medication * Prior agitation noted, which has improved * Off sedation * Neurology (Dr. Pham/George) * Trazodone 25 mg GT QHS * Provigil added 50 mg PO daily * Brain MRI (09/08/18); no definite mass effect or suspicious extra axial collection. no evidence of acute or subacute brain infarction at this time. Borderline pattern of hydrocephalus * LP 09/15- normal opening pressure () Acute Respiratory Failure, stable Pulmonary Edema Pseudomonas Pneumonia Plerual effusion s/p Trach * Patient underwent tracheostomy 07/24/18, s/p bronchoscopy 08/23, s/p right chest tube insertion 09/06 * Patient had tolerated trach collars inearly Nov; however she has been on vent to trach since. Fi02: 30% * Meropenem discontinued - Spoke with Dr. Brock, who says patient is improving and we can try her off ABx as long as she does not appear septic, and continue to evaluate * Pulmonary (Dr. Lozada)-->assisting with weaning from trach on vent to trach collar * s/p bronchoscopy (08/23/18) by Dr. Lozada * Pseudomonas aerguinosa * 08/23: Bronchial Washings: pseudomonas Aeruginosa * 08/23: Fungal Culture: Prelim: negative * 08/23: Mycobacterial culture: prelim * s/p chest tube insertion (09/06/18) * pleural fluid: no growth * 40cc drained 09/12 * Chest physiotherapy * 09/12 CXR shows PICC is coiled in SVC- removed 09/14 Septic Shock secondary to Pneumonia and Urinary Tract Infection, resolved * Patient susceptible to many infections in ICU setting- attempt to move to [facility] when possible * Infectious Disease (Dr. Brock) * d/c cefepime 09/12 * Trach Aspirate: Psuedomonas * s/p bronchoscopy (08/23/18) by Dr. Lozada * Pseudomonas aerguinosa * 08/23: Bronchial Washings: Pseudomonas Aeruginosa * s/p chest tube 09/06/18, removed 09/15 * Pleural fluid: no growth after 4 days * Chest xray (09/08/18): tracheostomy tube and right sided chest tube as abov e. Diffuse bilateral hazy opacities could represent of pulmonary venous congestive changes or bilateral infiltrates. b/l effusions left larger than right * Recent cultures: * 08/25/18 Blood culture: no growth 5 days X 2 * 08/23/18 Blood culture: no growth after 5 days X 2 * 08/27/18 Blood culture: no growth after 5 days * 08/27/18 UA and Urine Culture: no growth * Salmonella, shigella, or campylobacteria: not detected. * Procalcitonin: 2.89->0.33 * No fevers overnight, Pt is hemodynamically stable * PICC Line removed 09/12 found to be coiled on CXR * 09/15 LP, plts 270 * opening pressure: 21 * f/u cultures and serologies of CSF * Acyclovir 700 mg IV Q8H 09/15-09/25 Deconditioning * Patient needs aggressive continued PT/OT * Social work note (08/09/18): patient is undocumented, has not health insurance, dc planning will be at home with Hyperthyroidism? Low TSH, and Free T4, improving Thyroid Storm * Note: Thyroid studies taken before amiodarone was given (this is NOT amiodarone induced as her levels were abnormal prior) * Patient does not have prior thyroid history * Endocrinology (Dr. Gayle) * Thyroid U/S 07/16/18: showed heterogenous thyroid with multiple nodules bilaterally. She will need outpatient FNA Bx of the complex Left Lobe cyst (please see full report) * Methimazole 20mg PO Q8H * off Propranolol 5 mg PO TID due to hypotension * Monitor LFTs Anemia Likely Secondary to Chronic Diseases, stable Dysfunctional uterine bleeding * Iron normal, TIBC low, Iron Saturation normal, Ferritin normal * Stool occult blood negative * B12 normal * Folate Normal * Vaginal US: thickened endometrium * Transfused 1 unit PRBC 07/22/18, 2 unit of PRBC 08/13/18 1 unit on 08/17/18, 1 unit 08/23/18 * Patient has been seen by OBGYN Hospitalist; no contraindication to anticoagulation * recommend outpatient workup for vaginal bleeding, no hysterectomy during this hospitalization * Case discussed with residence life director recommending against Eliquis in light of bleeding; recommending for DVT ppx and aspirin if patient can tolerate it LLE DVT s/p IVC filter * Eliquis 5 mg PO BID d/c 08/17 * Acute thrombosis of the left common femoral and femoral veins with severe reduction of the venous return on 07/18/18 venous doppler * Patient had completed one month on Eliquis; however she continues to have dysfunction uterine bleeding; cardiology is recommending against Eliquis for thrombus given bleeding risk * s/p IVC filter (08/23/18) Diabetes, chronic * HgBA1c: 7.8 * Hypoglycemic protocol * Held Lantus 15 units subcutaneous at bedtime Q12 since 08/23/18 * Hypoglycemic 08/23/18 AM * Accuchecks AM and PM * ISS Q12H * Off Crestor 5mg PO qHS secondary to LFTs Ventricular Tachycardia, resolved NSTEMI Apical Thrombus LLE DVT s/p IVC filter * Code Blue 07/10: SVT==>VT required amiodarone, magnesium, one shock delivered * Code Blue 07/20: vtach s/p amiodarone, fluid, calcium gluconate, required compressions and shock * s/p IVC filter 08/23/18 * Cardiology (Dr. Francisco) * No cath needed * Medical management * No chemical anticoagulation in light of bleeding episodes (patient has dysfunction uterine bleeding required blood transfusions; Ob has been consulted earlier in the hospitalization to inpatient workup)-->recommending heparin 5000 unit subq8 (DVT ppx dose) and aspirin 81mg PO daily; likely thrombus is organized a month of anticoagulation; risk is due to bleeding against stroke * Off Propranolol 5mg PO TID * Eliquis d/c due to bleeding and anemia * Echo discussed with Dr. Francisco, patient does have residual clot-->aware we cannot anticoagulate given heavy vaginal bleeding; if patient can tolerate possible aspirin Shock Liver; Transminitis, resolved * Hepatitis serology negative * Ammonia: normal * Elevated INR--> vitamin K 08/24 * 08/24: off statin, benadryl, benzo, ambien, and micafungin (gave dose of ) * Continue to monitor LFTs; suspected medication induced or related to low blood pressure * GI (Dr. Murray)- signed off * Abd US shows bilateral pleural effusions, patent portal vein, no hydronephros is, no GB stones or cholecystitis * CT Abdomen/pelvis (08/25/18): limited evaluated evaluation hepatic vein thrombosis. heterogenous attenuation of the liver. Acute on Chronic Renal Failure, resolved * Nephrology (Dr. Hyde)--> signed off 13 mm Left Adrenal Nodule * As seen on CT Chest 07/16/[address] abdomen/pelvis * Will need outpatient follow up for cross sectional imaging for better characterization Ppx: VTE: SCD on Right and contraindicated on Left due to DVT GI: Protonix 40mg GT Q12H * Lactobacillus 1 cap PO Q12H * MVI GT daily * Vitamin C 1,000 NG daily * Vitamin D 50,000 IU Q7D PEG feedings- Pulmocare 40cc/hr with 250 mL water flush Q6H Code status: full code Case was discussed with attending, Dr. Jose Weinberg, PGY-1 <Pravin Garcia - Last Filed: 12/07/18 11:56> Objective - Vital Signs/Intake and Output Vital Signs (last 24 hours): Temp Pulse Resp BP Pulse Ox 98.7 F 95 H 20 96/60 L 100 12/07/18 08:00 12/07/18 08:00 12/07/18 08:00 12/07/18 08:00 12/07/18 08:00 Intake and Output: 12/07/18 12/07/18 06:59 18:59 Intake Total 920 Output Total 425 Balance 495 - Medications Medications: Current Medications Albuterol/Ipratropium (Duoneb 3 Mg/0.5 Mg (3 Ml) Ud) 3 ml INH RQ6 PRN PRN Reason: Shortness of Breath Last Admin: 12/06/18 13:20 Dose: 3 ml Aspirin (Aspirin Chewable) 81 mg GT DAILY [facility] Last Admin: 12/07/18 09:55 Dose: 81 mg Dextrose (Dextrose 50% Inj) 0 ml IVP .STAT PRN; Protocol PRN Reason: Hypoglycemia Protocol Dextrose (Glutose 15) 0 gm PO .ONCE PRN; Protocol PRN Reason: Hypoglycemia Protocol Emollient Ointment (Vaseline Oint) 5 gm TOP DAILY [facility] Last Admin: 12/07/18 09:56 Dose: 5 gm Glucagon (Glucagen Diagnostic Kit) 0 mg IM .STAT PRN; Protocol PRN Reason: Hypoglycemia Protocol Methimazole (Tapazole) 10 mg PO Q8 [facility] Last Admin: 12/07/18 05:41 Dose: 10 mg Midodrine (Proamatine) 10 mg PO TID [facility] Last Admin: 12/07/18 09:55 Dose: 10 mg Ondansetron HCl (Zofran Inj) 4 mg IVP DAILY@ONCE PRN PRN Reason: Nausea/Vomiting Last Admin: 11/29/18 17:05 Dose: 4 mg Pantoprazole Sodium (Protonix Susp) 40 mg GT Q12H [facility] Last Admin: 12/07/18 09:55 Dose: 40 mg Simethicone (Mylicon Chew Tab) 80 mg PO QID [facility] Last Admin: 12/07/18 09:55 Dose: 80 mg Sodium Bicarbonate (Sodium Bicarbonate Tab) 650 mg PO BID [facility] Last Admin: 12/07/18 09:55 Dose: 650 mg - Labs Labs: 11/28/18 11:26 11/28/18 11:26 PT 13.3 SECONDS (9.7-12.2) H 10/23/18 06:05 INR 1.2 10/23/18 06:05 APTT 23 SECONDS (21-34) 10/02/18 06:10 Attending/Attestation - Attestation I have personally seen and examined this patient.: Yes I have fully participated in the care of the patient.: Yes I have reviewed all pertinent clinical information, including history, physical exam and plan: Yes Notes (Text): current issues: Loculated Pleural Effusion on CXR VRE + Urine Hypotension 1)Septic Shock Pneumonia Urinary Tract Infection 2) Acute Respiratory Failure Pulmonary Edema Bilateral Pleural Effusion and Consolidations Likely Secondary to Asp iration Pneumonia Anoxic Encephalopathy 3) Anoxic Encephalopathy Ventricular Tachycardia NSTEMI Apical Thrombus LLE DVT 4) Urinary Tract Infection 5) Diabetes-->chronic 6) Acute on Chronic Renal Failure 7) Hyperthyroidism? Low TSH, and Free T4 Thyroid Storm 8) Anemia Likely Secondary to Chronic Diseases 9) Transminitis-->improving 10) Vitamin D deficiency 11) Thrombocytopenia-->resolved 12) 13 mm Left Adrenal Nodule 13) Hypernatremia-->resolved 14) LLE DVT 15) Deconditioning
--- NOTE | 2018-09-18 15:18 | RAD ---
Date of service: 09/18/2018 HISTORY: trach patient COMPARISON: 09/12/2018 FINDINGS: LUNGS: No active pulmonary disease. PLEURA: No significant pleural effusion identified, no pneumothorax apparent. CARDIOVASCULAR: No aortic atherosclerotic calcification present. Normal cardiac size. No pulmonary vascular congestion. OSSEOUS STRUCTURES: No significant abnormalities. VISUALIZED UPPER ABDOMEN: Normal. OTHER FINDINGS: Tracheostomy IMPRESSION: No active disease.
[2018-09-18] MEDS: traZODone 25 mg Tab GT SCH (21:36)
[2018-09-19] MEDS: (Novolog) Insulin Aspart, Recombinant 100 u/ml 10 ml vial SC SCH ×2 (06:02→18:56)
[2018-09-19 06:23] LABS: EOS % 4.2 % (0.0-4.0); LYMPH % 23.6 % (20.0-40.0); MEAN CELL VOLUME 89.5 fL (81.0-99.0); MEAN CORPUSCULAR HEMOGLOBIN 29.4 pg (27.0-31.0); MEAN CORPUSCULAR HGB CONC 32.9 g/dL (33.0-37.0); MEAN PLATELET VOLUME 8.9 fL (7.2-11.7); NEUT % 66.2 % (50.0-75.0); NRBC % 0.1 % (0.0-2.0); PLATELET COUNT 296 K/uL (130-400); RBC 3.41 Mil/uL (3.80-5.20); RED CELL DISTRIBUTION WIDTH 17.4 % (11.5-14.5); WHITE BLOOD COUNT 10.8 K/uL (4.8-10.8)
[2018-09-19 06:37] LABS: ALB/GLOB RATIO 0.9 (1.0-2.1); ALBUMIN 3.5 g/dL (3.5-5.0); ALT/SGPT 58 U/L (9-52); AST/SGOT 47 U/L (14-36); BLOOD UREA NITROGEN 28 mg/dL (7-17); GFR NON-AFRICAN AMERICAN > 60
[2018-09-19] MEDS: Multiple Vitamins Tab PEG SCH (10:27)
[2018-09-19] MEDS: Modafinil 50 MG TAB PO SCH (10:27)
[2018-09-19] MEDS: Pantoprazole 40 mg Susp UD GT SCH ×2 (10:27→21:25)
[2018-09-19] MEDS: Lactobacillus Acidophilus 500 MU Cap PEG SCH ×2 (10:27→21:25)
[2018-09-19] MEDS: Bacitracin 500 Units/gm Oint Foilpak UD TOP SCH (10:27)
--- NOTE | 2018-09-19 15:52 | CP.PCM.PN ---
<Elijah Weinberg - Last Filed: 09/19/18 15:56> Subjective - Date & Time of Evaluation Date of Evaluation: 09/19/18 Time of Evaluation: 15:54 - Subjective Subjective: PGY-[address] Garcia Patient seen and examined at bedside. No acute events overnight per nursing. Patient appears to be more alert today after starting provigil. was at bedside during rounds and says she is following commands. Patient still has not been able to be weened off trach. ROS deferred 2/2 patient nonverbal. Objective - Vital Signs/Intake and Output Vital Signs (last 24 hours): Temp Pulse Resp BP Pulse Ox 97.9 F 78 15 115/61 100 09/19/18 04:00 09/19/18 04:00 09/19/18 04:00 09/19/18 04:00 09/19/18 04:00 Intake and Output: 09/19/18 09/19/18 06:59 18:59 Intake Total 480 Output Total 1100 Balance -620 - Medications Medications: Current Medications Ascorbic Acid (Vitamin C 500 Mg Tab) 1,000 mg NG DAILY [facility] Last Admin: 09/19/18 10:27 Dose: 1,000 mg Bacitracin (Bacitracin) 1 ea TOP BID [facility]O Last Admin: 09/19/18 10:27 Dose: 1 ea Dextrose (Dextrose 50% Inj) 0 ml IVP .STAT PRN; Protocol PRN Reason: Hypoglycemia Protocol Dextrose (Glutose 15) 0 gm PO .ONCE PRN; Protocol PRN Reason: Hypoglycemia Protocol Ergocalciferol (Drisdol 50,000 Intl Units Cap) 1 cap GT Q7D [facility] Stop: 10/06/18 19:16 Last Admin: 09/15/18 18:26 Dose: 1 cap Glucagon (Glucagen Diagnostic Kit) 0 mg IM .STAT PRN; Protocol PRN Reason: Hypoglycemia Protocol Insulin Aspart (Novolog) 0 unit SC Q12H [facility]; Protocol Last Admin: 09/19/18 06:02 Dose: Not Given Insulin Glargine (Lantus) 15 unit SC Q12 [facility] Last Admin: 08/23/18 10:39 Dose: Not Given Lactobacillus Acidophilus (Bacid Acidophilus) 1 cap PEG Q12 [facility] Last Admin: 09/19/18 10:27 Dose: 1 cap Methimazole (Tapazole) 20 mg PO Q8 [facility] Last Admin: 09/19/18 05:23 Dose: 20 mg Modafinil (Provigil) 50 mg PO DAILY [facility] Last Admin: 09/19/18 10:27 Dose: 50 mg Multivitamins (Hexavitamin) 1 tab PEG DAILY [facility] Last Admin: 09/19/18 10:27 Dose: 1 tab Pantoprazole Sodium (Protonix Susp) 40 mg GT Q12H [facility] Last Admin: 09/19/18 10:27 Dose: 40 mg Trazodone HCl (Desyrel) 25 mg GT HS [facility] Last Admin: 09/18/18 21:36 Dose: 25 mg - Labs Labs: 09/19/18 06:19 09/19/18 06:19 PT 11.9 SECONDS (9.7-12.2) 09/04/18 06:22 INR 1.1 09/04/18 06:22 APTT 29 SECONDS (21-34) 09/02/18 05:48 - Constitutional Appears: No Acute Distress, Older Than Stated Age, Confused, Chronically Ill - Head Exam Head Exam: ATRAUMATIC, NORMAL INSPECTION - Eye Exam Eye Exam: EOMI, Normal appearance - ENT Exam ENT Exam: Mucous Membranes Moist - Neck Exam Additional comments: trach in place - Respiratory Exam Respiratory Exam: Clear to Ausculation Bilateral. absent: Wheezes Additional comments: On vent - Cardiovascular Exam Cardiovascular Exam: REGULAR RHYTHM, +S1, +S2 - GI/Abdominal Exam GI & Abdominal Exam: Soft. absent: Tenderness - Extremities Exam Extremities Exam: absent: Pedal Edema - Neurological Exam Neurological Exam: Awake Additional comments: Not able to follow commands, non-verbal. Appears generally more alert than yeste rday. - Psychiatric Exam Additional comments: TD-like facial tics - Skin Skin Exam: Dry, Intact Assessment and Plan - Assessment and Plan (Free Text) Assessment: Patient is a 52 yo female originally admitted to the ICU for Septic shock 2/2 to PNA/UTI worsened by cardiac arrest, and anoxic brain injury. Pt is s/p trach and PEG. s/p IVC filter 08/23. Chest tube placement 09/06-09/15. s/p LP 09/15. Patient still has been unable to be weaned off vent. She has had multiple complications, including DVT and infections. Most recently, MRI showed potential hydrocephalus. LP done and opening pressure was normal. Patient has shown minimal improvement of cognitive function during the course of this hospitalization. Patient does not have any insurance and therefore cannot be placed in rehab/NH. Multiple conversations with regarding poor prognosis - he wishes to keep her full code. Plan: Anoxic Encephalopathy * Code Blue 07/10 and 07/20 * Patient prior knowledge of 5 languages per but does not always follow commands * CT head: no acute intracranial pathology. Age-related changes. no significant interval change. * Acyclovir 700 mg IV Q8H to cover for possible Viral Encephalitis * CSF negative for HSV 1 or 2 - will consider discontinuing this medication * Prior agitation noted, which has improved * Off sedation * Neurology (Dr. Pham/George) * Trazodone 25 mg GT QHS * Provigil added 50 mg PO daily --> Patient appearing more alert today * Brain MRI (09/08/18); no definite mass effect or suspicious extra axial collection. no evidence of acute or subacute brain infarction at this time. Borderline pattern of hydrocephalus * LP 09/15- normal opening pressure (21) Acute Respiratory Failure, stable Pulmonary Edema Pseudomonas Pneumonia Plerual effusion s/p Trach * Patient underwent tracheostomy 07/24/18, s/p bronchoscopy 08/23, s/p right chest tube insertion 09/06 * Patient had tolerated trach collars inearly Nov; however she has been on vent to trach since. Fi02: 30% * Meropenem discontinued - Spoke with Dr. Brock, who says patient is improving and we can try her off ABx as long as she does not appear septic, and continue to evaluate * Pulmonary (Dr. Lozada)-->assisting with weaning from trach on vent to trach [place] * s/p bronchoscopy (08/23/18) by Dr. Lozada * Pseudomonas aerguinosa * 08/23: Bronchial Washings: pseudomonas Aeruginosa * 08/23: Fungal Culture: Prelim: negative * 08/23: Mycobacterial culture: prelim * s/p chest tube insertion (09/06/18) * pleural fluid: no growth * 40cc drained 09/12 * Chest physiotherapy * 09/12 CXR shows PICC is coiled in SVC- removed 09/14 Septic Shock secondary to Pneumonia and Urinary Tract Infection, resolved * Patient susceptible to many infections in ICU setting- attempt to move to floor when possible * Infectious Disease (Dr. Brock) * d/c cefepime 09/12 * Trach Aspirate: Psuedomonas * s/p bronchoscopy (08/23/18) by Dr. Lozada * Pseudomonas aerguinosa * 08/23: Bronchial Washings: Pseudomonas Aeruginosa * s/p chest tube 09/06/18, removed 09/15 * Pleural fluid: no growth after 4 days * Chest xray (09/08/18): tracheostomy tube and right sided chest tube as above. Diffuse bilateral hazy opacities could represent of pulmonary venous congestive changes or bilateral infiltrates. b/l effusions left larger than right * Recent cultures: * 08/25/18 Blood culture: no growth 5 days X 2 * 08/23/18 Blood culture: no growth after 5 days X 2 * 08/27/18 Blood culture: no growth after 5 days * 08/27/18 UA and Urine Culture: no growth * Salmonella, shigella, or campylobacteria: not detected. * Procalcitonin: 2.89->0.33 * No fevers overnight, Pt is hemodynamically stable * PICC Line removed 09/12 found to be coiled on CXR * 09/15 LP, plts 270 * opening pressure: 21 * f/u cultures and serologies of CSF * Acyclovir 700 mg IV Q8H 09/15-09/25 Deconditioning * Patient needs aggressive continued PT/OT * Social work note (08/09/18): patient is undocumented, has not health insurance, dc planning will be at home with Hyperthyroidism? Low TSH, and Free T4, improving Thyroid Storm * Note: Thyroid studies taken before amiodarone was given (this is NOT amiodarone induced as her levels were abnormal prior) * Patient does not have prior thyroid history * Endocrinology (Dr. Gayle) * Thyroid U/S 07/16/18: showed heterogenous thyroid with multiple nodules jayde aterally. She will need outpatient FNA Bx of the complex Left Lobe cyst (please see full report) * Methimazole 20mg PO Q8H * off Propranolol 5 mg PO TID due to hypotension * Monitor LFTs Anemia Likely Secondary to Chronic Diseases, stable Dysfunctional uterine bleeding * Iron normal, TIBC low, Iron Saturation normal, Ferritin normal * Stool occult blood negative * B12 normal * Folate Normal * Vaginal US: thickened endometrium * Transfused 1 unit PRBC 07/22/18, 2 unit of PRBC 08/13/18 1 unit on 08/17/18, 1 unit 08/23/18 * Patient has been seen by OBGYN Hospitalist; no contraindication to anticoagulation * recommend outpatient workup for vaginal bleeding, no hysterectomy during this hospitalization * Case discussed with bingo caller recommending against Eliquis in light of bleeding; recommending for DVT ppx and aspirin if patient can tolerate it LLE DVT s/p IVC filter * Eliquis 5 mg PO BID d/c 08/17 * Acute thrombosis of the left common femoral and femoral veins with severe reduction of the venous return on 07/18/18 venous doppler * Patient had completed one month on Eliquis; however she continues to have dysfunction uterine bleeding; cardiology is recommending against Eliquis for thrombus given bleeding risk * s/p IVC filter (08/23/18) Diabetes, chronic * HgBA1c: 7.8 * Hypoglycemic protocol * Held Lantus 15 units subcutaneous at bedtime Q12 since 08/23/18 * Hypoglycemic 08/23/18 AM * Accuchecks AM and PM * ISS Q12H * Off Crestor 5mg PO qHS secondary to LFTs Ventricular Tachycardia, resolved NSTEMI Apical Thrombus LLE DVT s/p IVC filter * Code Blue 07/10: SVT==>VT required amiodarone, magnesium, one shock delivered * Code Blue 07/20: vtach s/p amiodarone, fluid, calcium gluconate, required compressions and shock * s/p IVC filter 08/23/18 * Cardiology (Dr. Francisco) * No cath needed * Medical management * No chemical anticoagulation in light of bleeding episodes (patient has dysfunction uterine bleeding required blood transfusions; Ob has been consulted earlier in the hospitalization to inpatient w orkup)-->recommending heparin 5000 unit subq8 (DVT ppx dose) and aspirin 81mg PO daily; likely thrombus is organized a month of anticoagulation; risk is due to bleeding against stroke * Off Propranolol 5mg PO TID * Eliquis d/c due to bleeding and anemia * Echo discussed with Dr. Francisco, patient does have residual clot-->aware we cannot anticoagulate given heavy vaginal bleeding; if patient can tolerate possible aspirin Shock Liver; Transminitis, resolved * Hepatitis serology negative * Ammonia: normal * Elevated INR--> vitamin K 08/24 * 08/24: off statin, benadryl, benzo, ambien, and micafungin (gave dose of 08/23) * Continue to monitor LFTs; suspected medication induced or related to low blood pressure * GI (Dr. Murray)- signed off * Abd US shows bilateral pleural effusions, patent portal vein, no hydronephrosis, no GB stones or cholecystitis * CT Abdomen/pelvis (08/25/18): limited evaluated evaluation hepatic vein thrombosis. heterogenous attenuation of the liver. Acute on Chronic Renal Failure, resolved * Nephrology (Dr. Hyde)--> signed off 13 mm Left Adrenal Nodule * As seen on CT Chest 07/16/[address] abdomen/pelvis * Will need outpatient follow up for cross sectional imaging for better characterization Ppx: VTE: SCD on Right and contraindicated on Left due to DVT GI: Protonix 40mg GT Q12H * Lactobacillus 1 cap PO Q12H * MVI GT daily * Vitamin C 1,000 NG daily * Vitamin D 50,000 IU Q7D PEG feedings- Pulmoc[facility] 40cc/hr with 250 mL water flush Q6H Code status: full code Case was discussed with attending, Dr. Jose Weinberg, PGY-1 <Pravin Garcia - Last Filed: 12/07/18 11:56> Objective - Vital Signs/Intake and Output Vital Signs (last 24 hours): Temp Pulse Resp BP Pulse Ox 98.7 F 95 H 20 96/60 L 100 12/07/18 08:00 12/07/18 08:00 12/07/18 08:00 12/07/18 08:00 12/07/18 08:00 Intake and Output: 12/07/18 12/07/18 06:59 18:59 Intake Total 920 Output Total 425 Balance 495 - Medications Medications: Current Medications Albuterol/Ipratropium (Duoneb 3 Mg/0.5 Mg (3 Ml) Ud) 3 ml INH RQ6 PRN PRN Reason: Shortness of Breath Last Admin: 12/06/18 13:20 Dose: 3 ml Aspirin (Aspirin Chewable) 81 mg GT DAILY [facility] Last Admin: 12/07/18 09:55 Dose: 81 mg Dextrose (Dextrose 50% Inj) 0 ml IVP .STAT PRN; Protocol PRN Reason: Hypoglycemia Protocol Dextrose (Glutose 15) 0 gm PO .ONCE PRN; Protocol PRN Reason: Hypoglycemia Protocol Emollient Ointment (Vaseline Oint) 5 gm TOP DAILY [facility] Last Admin: 12/07/18 09:56 Dose: 5 gm Glucagon (Glucagen Diagnostic Kit) 0 mg IM .STAT PRN; Protocol PRN Reason: Hypoglycemia Protocol Methimazole (Tapazole) 10 mg PO Q8 [facility] Last Admin: 12/07/18 05:41 Dose: 10 mg Midodrine (Proamatine) 10 mg PO TID [facility] Last Admin: 12/07/18 09:55 Dose: 10 mg Ondansetron HCl (Zofran Inj) 4 mg IVP DAILY@ONCE PRN PRN Reason: Nausea/Vomiting Last Admin: 11/29/18 17:05 Dose: 4 mg Pantoprazole Sodium (Protonix Susp) 40 mg GT Q12H [facility] Last Admin: 12/07/18 09:55 Dose: 40 mg Simethicone (Mylicon Chew Tab) 80 mg PO QID [facility] Last Admin: 12/07/18 09:55 Dose: 80 mg Sodium Bicarbonate (Sodium Bicarbonate Tab) 650 mg PO BID [facility] Last Admin: 12/07/18 09:55 Dose: 650 mg - Labs Labs: 11/28/18 11:26 11/28/18 11:26 PT 13.3 SECONDS (9.7-12.2) H 10/23/18 06:05 INR 1.2 10/23/18 06:05 APTT 23 SECONDS (21-34) 10/02/18 06:10 Attending/Attestation - Attestation I have personally seen and examined this patient.: Yes I have fully participated in the care of the patient.: Yes I have reviewed all pertinent clinical information, including history, physical exam and plan: Yes Notes (Text): current issues: Loculated Pleural Effusion on CXR VRE + Urine Hypotension 1)Septic Shock Pneumonia Urinary Tract Infection 2) Acute Respiratory Failure Pulmonary Edema Bilateral Pleural Effusion and Consolidations Likely Secondary to Aspiration Pneumonia Anoxic Encephalopathy 3) Anoxic Encephalopathy Ventricular Tachycardia NSTEMI Apical Thrombus LLE DVT 4) Urinary Tract Infection 5) Diabetes-->chronic 6) Acute on Chronic Renal Failure 7) Hyperthyroidism? Low TSH, and Free T4 Thyroid Storm 8) Anemia Likely Secondary to Chronic Diseases 9) Transminitis-->improving 10) Vitamin D deficiency 11) Thrombocytopenia-->resolved 12) 13 mm Left Adrenal Nodule 13) Hypernatremia-->resolved 14) LLE DVT 15) Deconditioning
[2018-09-19 16:31] LABS: SQUAMOUS EPITHIAL 3 /hpf (0-5); URINE BACTERIA MOD (<OCC); URINE BILIRUBIN NEGATIVE (NEGATIVE); URINE BLOOD NEGATIVE (NEGATIVE); URINE CLARITY Hazy (Clear); URINE COLOR Yellow (YELLOW); URINE GLUCOSE (UA) NORMAL (Normal); URINE LEUKOCYTE ESTERASE 2+ Leu/uL (Negative); URINE PROTEIN 1+ mg/dL (NEGATIVE); URINE UROBILINOGEN NORMAL mg/dL (0.2-1.0)
[2018-09-19] MEDS: traZODone 25 mg Tab GT SCH (21:25)
[2018-09-20] MEDS: (Novolog) Insulin Aspart, Recombinant 100 u/ml 10 ml vial SC SCH ×2 (05:59→18:30)
--- NOTE | 2018-09-20 06:57 | CP.PCM.PN ---
<Saira Leahy V - Last Filed: 09/20/18 16:48> Objective - Vital Signs/Intake and Output Vital Signs (last 24 hours): Temp Pulse Resp BP Pulse Ox 99.9 F H 100 H 25 H 127/65 97 09/20/18 07:58 09/20/18 07:58 09/20/18 07:58 09/20/18 07:58 09/20/18 07:58 Intake and Output: 09/20/18 09/20/18 06:59 18:59 Intake Total 580 Output Total 500 Balance 80 - Medications Medications: Current Medications Albuterol/Ipratropium (Duoneb 3 Mg/0.5 Mg (3 Ml) Ud) 3 ml INH RQ6 PRN PRN Reason: Shortness of Breath Ascorbic Acid (Vitamin C 500 Mg Tab) 1,000 mg NG DAILY [facility] Last Admin: 09/20/18 09:13 Dose: 1,000 mg Dextrose (Dextrose 50% Inj) 0 ml IVP .STAT PRN; Protocol PRN Reason: Hypoglycemia Protocol Dextrose (Glutose 15) 0 gm PO .ONCE PRN; Protocol PRN Reason: Hypoglycemia Protocol Ergocalciferol (Drisdol 50,000 Intl Units Cap) 1 cap GT Q7D [facility] Stop: 10/06/18 19:16 Last Admin: 09/15/18 18:26 Dose: 1 cap Glucagon (Glucagen Diagnostic Kit) 0 mg IM .STAT PRN; Protocol PRN Reason: Hypoglycemia Protocol Insulin Aspart (Novolog) 0 unit SC Q12H [facility]; Protocol Last Admin: 09/20/18 05:59 Dose: Not Given Insulin Glargine (Lantus) 15 unit SC Q12 [facility] Last Admin: 08/23/18 10:39 Dose: Not Given Lactobacillus Acidophilus (Bacid Acidophilus) 1 cap PEG Q12 [facility] Last Admin: 09/20/18 09:13 Dose: 1 cap Methimazole (Tapazole) 20 mg PO Q8 [facility] Last Admin: 09/20/18 14:45 Dose: 20 mg Modafinil (Provigil) 50 mg PO DAILY [facility] Last Admin: 09/20/18 09:13 Dose: 50 mg Multivitamins (Hexavitamin) 1 tab PEG DAILY [facility] Last Admin: 09/20/18 09:13 Dose: 1 tab Pantoprazole Sodium (Protonix Susp) 40 mg GT Q12H [facility] Last Admin: 09/20/18 09:13 Dose: 40 mg - Labs Labs: 09/20/18 10:53 09/20/18 10:53 PT 11.9 SECONDS (9.7-12.2) 09/04/18 06:22 INR 1.1 09/04/18 06:22 APTT 29 SECONDS (21-34) 09/02/18 05:48 Assessment and Plan (1) Septic shock Status: Acute (2) Acute respiratory failure Status: Acute (3) Urinary tract infection Status: Acute (4) Acute renal failure Status: Acute (5) Aspiration pneumonia Status: Acute (6) Diabetes mellitus Status: Chronic (7) Ventricular arrhythmia Status: Acute (8) Hyperthyroidism Status: Acute (9) Anemia Status: Acute (10) Prophylactic measure Status: Acute Attending/Attestation - Attestation I have personally seen and examined this patient.: Yes I have fully participated in the care of the patient.: Yes I have reviewed all pertinent clinical information, including history, physical exam and plan: Yes Notes (Text): 1) Septic Shock secondary to Pneumonia and Urinary Tract Infection New Pneumonia-->pseudomonas Assessment/Plan * Infectious Disease (Dr. Brock) on board-->help appreciated * Meropenem d/c 08/27 * Maxipime 1gm [id number] (from 08/27/18 to 09/12/18) * Trach Aspirate: Psuedomonas * s/p bronchoscopy (08/23/18) * Pseudomonas aerguinosa * dictated by dr maciel * 08/23: Bronchial Washings: pseudomonas Aeruginosa * 08/23: Fungal Culture: Prelim: negative * 08/23: Mycobacterial culture: negative * s/p chest tube 09/06/18; removed 09/15 * Pleural fluid: no growth * Recent culture: * 08/25/18 Blood culture: no growth 5 days X 2 * 08/23/18 Blood culture: no growth after 5 days X 2 * 08/27/18 Blood culture: no growth after 5 days * 08/27/18 UA and Urine Culture: no growth * Salmonella, shigella, or campylobacteria: not detected. * Trachasp: Pseudomonas Aeruginosa-->sensitive to Cipro * 09/19 Urine culture: gram positive cocci * Procalcitonin: 2.89 (08/28)-->0.33 (09/04)--->pending repeat procalcitonin 2) Shock Liver; Transminitis Assessment/Plan * GI has signed off * Hepatitis serology negative * Ammonia: normal * elevated INR--> vitamin K 08/24 * 08/24: off statin, benadryl, benzo, ambien, and micafungin (gave dose of 08/23) * Continue to monitor LFTs; suspected medication induced or related to low blood pressure * Gi (Dr. Murray) * discussed case with fellow 08/26/18 * Abd US shows bilateral pleural effusions, patent portal vein, no hydronephrosis, no GB stones or cholecystitis * CT Abdomen/pelvis (08/25/18): limited evaluated evaluation hepatic vein thro mbosis. heterogenous attenuation of the liver. 3) Anoxic Encephalopathy Assessment/Plan * Code Blue 07/10 and 07/20 * Patient prior knowledge of 5 languages per but does not follow commands * CT head: no acute intracranial pathology. Age-related changes. no significant interval change. * suspect cognitive decline since second code blue * Brain MRI (09/08/18); no definite mass effect or suspicious extra axial collection. no evidence of acute or subacute brain infarction at this time. Borderline pattern of hydrocephalus * s/p Lumbar Puncture 09/15 * Opening pressure: 21; normal no evidence of ICP * CSF Culture: No growth * No Mycobact nor fungal observed * HSV 1 DNA and HSV 2: not detected 4) Acute Respiratory Failure Pulmonary Edema Pseudomona Pneumonia s/p Trach Assessment/Plan * Patient underwent tracheostomy 07/24/18, s/p bronchoscopy 08/23, s/p right chest tube insertion * Patient had tolerated trach collarsthru Tuesday 08/14; however she has been on vent to trach. Fi02: 30 percent * Pulmonary (Dr. Maciel) on board-->assisting with weaning from trach on vent to trach collar * Duonebs 3ml Inh Q6H * s/p bronchoscopy (08/23/18) * Pseudomonas aerguinosa * dictated by dr maciel * 08/23: Bronchial Washings: pseudomonas Aeruginosa * 08/23: Fungal Culture: Prelim: negative * 08/23: Mycobacterial culture: prelim * s/p chest tube insertion (09/06/18) was removed 09/15 * pleural fluid: no growth * Chest physiotherapy 4) Ventricular Tachycardia NSTEMI Apical Thrombus LLE DVT s/p IVC filter Assessment/Plan * Code Blue 07/10: SVT==>VT required amiodarone, magnesium, one shock delivered * Code Blue 07/20: vtach s/p amiodarone, fluid, calcium gluconate, required compressions and shock * S/p IVC filter 08/23/18 * Cardiology Dr Francisco on case help appreciated * No cath needed. * Medical management * No chemical anticoagulation in light of bleeding episodes (patient has dysfunction uterine bleeding required blood transfusions; Ob has been consulted earlier in the hospitalization to inpatient workup)-->recommending heparin 5000 unit subq8 (DVT ppx dose) and aspirin 81mg PO daily; likely thrombus is organized a month of anticoagulation; risk is due to bleeding against stroke * d/c Propranolol 5mg PO TID (hold SBP<100 and HR<60) * Eliquis d/c bleeding and anemia-->dvt ppx and aspirin * Echo discussed with Dr. Francisco, patient does have residual clot-->aware we cannot anticoagulate given heavy vaginal bleeding; if patient can tolerate possible aspirin 4) VRE Urinary Tract Infection (resolved) Assessment/Plan * OFF Contact isolation 5) Diabetes-->chronic Assessment/Plan * HgBA1c: 7.8 * Hypoglycemic protocol * held Lantus 15 units subcutaneous at bedtime Q12 since 08/23/18 * Hypoglycemic 08/23/18 AM * Accuchecks Q6H * Novolog sliding scale * off Crestor 5mg POqHS secondary to LFTs 6) Acute on Chronic Renal Failure (resolved) Assessment/Plan * Nephrology (Dr. Hyde) on board--> help appreciated-->has signed off 7) Hyperthyroidism? Low TSH, and Free T4 Thyroid Storm Assessment/Plan * Note Thyroid studies taken before amiodarone was given (please advised this is not amiodarone induced her levels were abnormal prior) * Patient does not have prior thyroid history * Endocrinology (Dr. Gayle) on board help appreciated * Thyroid U/S 07/16/18: showed heterogenous thyroid with multiple nodules bilaterally. She will need outpatient FNA Bx of the complex Left Lobe cyst (please see full report) * Methimazole 20mg PO TID * off Propranolol 5 mg PO TID due to hypotension * Monitor LFTs 8) Anemia Likely Secondary to Chronic Diseases Dysfunctional uterine bleeding Assessment/Plan * Iron normal, TIBC low, Iron Saturation normal, Ferritin normal * Stool occult blood negative * B12 normal * Folate Normal * Transfused 1 unit PRBC 07/22/18, 2 unit of PRBC 08/13/18 1 unit on 08/17/18, 1 unit 08/23/18 * Patient has been seen by OB Hospitalist; no contraindication to anticoagulation * recommend outpatient workup for vaginal bleeding * Case discussed with mems process engineer recommending against eliquis in light of bleeding; recommending for DVT ppx and aspirin if patient can tolerate it 9) Vitamin D deficiency Assessment plan * 50,000 international units once a week (3 doses given so far) * Restart Vitamin D 50,000 IU once a week started on 08/18/18) 10) Thrombocytopenia-->resolved Assessment plan * HIT/RUSTY were negative 11) 13 mm Left Adrenal Nodule * As seen on CT Chest 07/16/[address] abdomen/pelvis * Will need outpatient follow up for cross sectional imaging for better characterization 12) Hypernatremia (resolved) * Start free fluid washes 250ml Q6 via tube feeds 13) LLE DVT s/p IVC filter * Eliquis 5 mg PO BID d/c 08/17 * Acute thrombosis of the left common femoral and femoral veins with severe red uction of the venous return on 07/18/18 venous doppler * Patient had completed one month on Eliquis; however she continues to have dysfunction uterine bleeding; cardiology is recommending against eliquis for thrombus given bleeding risk * repeat doppler to see if DVT has resolved by ultrasound repeat * s/p IVC filter (08/23/18) 14) Deconditioning * Patient needs continued PT/O * Respiratory attempting to wean but remains on vent. * Brain MRI (09/08/18); no definite mass effect or suspicious extra axial collection. no evidence of acute or subacute brain infarction at this time. Borderline pattern of hydrocephalus * Patient unable to get LTAC given lack of insurance 15) Tardive Dyskinesa Assessment/Plan * D/c Trazodone due to side effect * Given Ativan 0.5mg IV X1 to reverse * Will start Ambien 5mg POqHS at night 16) Prophylactic measure * Protonix 40mg GT BID * Lactobacillus 1 cap PO BID * MVI 1x/day * Vitamin C 1,000 NG 1x/day * s/p Trach and Peg * SCD on Right and contraindicated on Left due to DVT * Peg feedings * Pulmcar 40cc/hr * patient had frequent BMs on prior formula; no diarrhea; we have spoken with dietary to change it on 08/19/18 * PICC Line d/c due to coiling * Patient has midline access * Note: speak to patient in [place] to assess neurologic status-->she does follow sometimes * s/p bronchoscopy 08/23 * s/p IVC filter 08/23 * s/p LP 09/15 * s/p right chest tube insertion 09/06; removed 09/15 * patient is FULL CODE * Provigil 50mg PO daily started to promote wakefulness during the day. * Social work note (08/09/18): patient is undocumented, has not health insurance, dc planning will be at home with <Cydney Herbert - Last Filed: 09/20/18 17:58> Subjective - Date & Time of Evaluation Date of Evaluation: 09/20/18 Time of Evaluation: 06:56 - Subjective Subjective: PGY-1 Cydney Herbert D.O. Medicine progress note for Dr. Leahy's service: Patient was seen and examined this morning. She is sitting in chair. is at bedside. She is moving her L arm and head without purpose. Not verbally responding or tracking. No real cahnge from how patient has been. Respiratory rate increased overnight but now improved. Vent setting remain unchanged. Objective - Vital Signs/Intake and Output Vital Signs (last 24 hours): Temp Pulse Resp BP Pulse Ox 98.5 F 99 H 19 110/66 100 09/20/18 04:00 09/20/18 04:00 09/20/18 04:00 09/20/18 04:00 09/20/18 04:00 Intake and Output: 09/19/18 09/20/18 18:59 06:59 Intake Total 480 580 Output Total 300 500 Balance 180 80 - Medications Medications: Current Medications Albuterol/Ipratropium (Duoneb 3 Mg/0.5 Mg (3 Ml) Ud) 3 ml INH RQ6 PRN PRN Reason: Shortness of Breath Ascorbic Acid (Vitamin C 500 Mg Tab) 1,000 mg NG DAILY [facility] Last Admin: 09/19/18 10:27 Dose: 1,000 mg Dextrose (Dextrose 50% Inj) 0 ml IVP .STAT PRN; Protocol PRN Reason: Hypoglycemia Protocol Dextrose (Glutose 15) 0 gm PO .ONCE PRN; Protocol PRN Reason: Hypoglycemia Protocol Ergocalciferol (Drisdol 50,000 Intl Units Cap) 1 cap GT Q7D [facility] Stop: 10/06/18 19:16 Last Admin: 09/15/18 18:26 Dose: 1 cap Glucagon (Glucagen Diagnostic Kit) 0 mg IM .STAT PRN; Protocol PRN Reason: Hypoglycemia Protocol Insulin Aspart (Novolog) 0 unit SC Q12H [facility]; Protocol Last Admin: 09/20/18 05:59 Dose: Not Given Insulin Glargine (Lantus) 15 unit SC Q12 [facility] Last Admin: 08/23/18 10:39 Dose: Not Given Lactobacillus Acidophilus (Bacid Acidophilus) 1 cap PEG Q12 [facility] Last Admin: 09/19/18 21:25 Dose: 1 cap Methimazole (Tapazole) 20 mg PO Q8 [facility] Last Admin: 09/20/18 05:01 Dose: 20 mg Modafinil (Provigil) 50 mg PO DAILY [facility] Last Admin: 09/19/18 10:27 Dose: 50 mg Multivitamins (Hexavitamin) 1 tab PEG DAILY [facility] Last Admin: 09/19/18 10:27 Dose: 1 tab Pantoprazole Sodium (Protonix Susp) 40 mg GT Q12H [facility] Last Admin: 09/19/18 21:25 Dose: 40 mg Trazodone HCl (Desyrel) 25 mg GT HS [facility] Last Admin: 09/19/18 21:25 Dose: 25 mg - Labs Labs: 09/19/18 06:19 09/19/18 06:19 PT 11.9 SECONDS (9.7-12.2) 09/04/18 06:22 INR 1.1 09/04/18 06:22 APTT 29 SECONDS (21-34) 09/02/18 05:48 - Additional Findings Additional findings: - Constitutional Appears: No Acute Distress, Cachectic, Chronically Ill - Head Exam Head Exam: ATRAUMATIC, NORMAL INSPECTION - Eye Exam Eye Exam: EOMI, Normal appearance, PERRL - ENT Exam ENT Exam: Mucous Membranes Moist - Neck Exam Additional comments: trach - Respiratory Exam Respiratory Exam: absent: Respiratory Distress Additional comments: vent - Cardiovascular Exam Cardiovascular Exam: REGULAR RHYTHM - GI/Abdominal Exam GI & Abdominal Exam: Soft. absent: Tenderness Additional comments: PEG tube - Extremities Exam Extremities Exam: Normal Inspection. absent: Joint Swelling, Pedal Edema - Back Exam Back Exam: NORMAL INSPECTION - Neurological Exam Neurological Exam: Alert, Altered, Awake. absent: Normal Gait - Skin Skin Exam: Dry, Intact, Normal Color, Warm Assessment and Plan - Assessment and Plan (Free Text) Assessment: Patient is a 52 yo female originally admitted to the ICU for Septic shock 11/04 to PNA/UTI worsened by cardiac arrest, and anoxic brain injury. Pt is s/p trach and PEG. s/p IVC filter 08/23. Chest tube placement 09/06-09/15. s/p LP 09/15. Patient still unable to be weaned off vent. She has had multiple complications, including DVT and infections. Most recently, MRI showed potential hydrocephalus. LP done and opening pressure was normal. Patient has shown minimal improvement of cognitive function during the course of this hospitalization. Patient does not have any insurance and therefore cannot be placed in rehab/NH. Multiple conversations with regarding poor prognosis- he wishes to keep her full code. Most recently, patient's trach aspiration grew Pseudomonas (09/16) and urinne grew GPC (09/19). ID would like to avoid more antibiotics for now as patient has been treated extensively for multiple infections. Plan: Anoxic Encephalopathy - Code Blue 07/10 and 07/20 - Patient prior knowledge of 5 languages per but does not always follow commands - CT head: no acute intracranial pathology. Age-related changes. no significant interval change. - Previously very agitated, especially during the night, this has somewhat improved * Off IV sedation * Discontinue Trazodone as may be contributing to EPS/tardive dyskinesia * Provigil 50 mg PO daily * Ambien 5 mg PO QHS PRN - Brain MRI (09/08/18); no definite mass effect or suspicious extra axial collection. no evidence of acute or subacute brain infarction at this time. Borderline pattern of hydrocephalus - LP 09/15- normal opening pressure (21) - Neurology (Dr. Pham/George) Acute Respiratory Failure, stable Pulmonary Edema Pseudomonas Pneumonia Pleural effusion s/p Trach - Patient underwent tracheostomy 07/24/18, s/p bronchoscopy 08/23, s/p right chest tube insertion 09/06 * Patient had tolerated trach collars inearly Nov; however she has been on vent to trach since. Fi02: 30% - Most recent trach Cx 09/16: Pseudomonas Aeruginosa - s/p bronchoscopy (08/23/18) by Dr. Maciel * 08/23: Bronchial Washings: Pseudomonas Aeruginosa * 08/23: Fungal Culture: Prelim: negative * 08/23: Mycobacterial culture: negative - s/p chest tube insertion (09/06)- removed 09/15 * pleural fluid: no growth - Chest physiotherapy - Duoneb Q6H PRN - Spoke w/ Neurology Dr. Pham, after review of imaging, unlikely source of overall symptoms/clinical presentation, most likely anoxic brain injury - Pulmonary (Dr. Maciel)- assisting with weaning from trach on vent to trach collar Septic Shock secondary to Pneumonia and Urinary Tract Infection- shock resolved byu - Patient susceptible to many infections in ICU setting- attempt to move to floor when possible - Trach aspirate Cx 09/16: Pseudomonas aeruginosa - Urine Cx 09/19: GPC - s/p bronchoscopy (08/23/18) by Dr. Maciel * Pseudomonas aerguinosa * 08/23: Bronchial Washings: Pseudomonas aeruginosa - s/p chest tube 09/06/18, removed 09/15 * Pleural fluid: no growth after 4 days * Chest xray (09/08/18): tracheostomy tube and right sided chest tube as above. Diffuse bilateral hazy opacities could represent of pulmonary venous congestive changes or bilateral infiltrates. b/l effusions left larger than right - Recent cultures: * 08/27/18 Blood culture: no growth after 5 days * 09/16/18 Trach aspirate culture: Pseudomonas aeruginosa * 09/19/18 Urine culture: GPC * Salmonella, shigella, campylobacteria: not detected. - Procalcitonin: 2.89->0.33 - Repeat 09/21 - 09/12 CXR shows PICC is coiled in SVC- removed 09/14 - 09/14 Midline placed - 09/15 LP, plts 270 * opening pressure: 21 * Cx no growth * Traumatic tap (RBC 524) * Elevated neutrophils and lymphocytes * Acyclovir 700 mg IV Q8H 09/15-09/19 - Infectious Disease (Dr. Brock)- try to avoid antibiotic for now, patient has had multiple various treatments over hospital course * d/c cefepime 09/12 Deconditioning - Patient needs aggressive continued PT/OT - Social work note (08/09/18): patient is undocumented, has not health insurance, dc planning will be at home with - F/u on 09/20- no change to discharge planning Hyperthyroidism? Low TSH, and Free T4, improving Thyroid Storm - Note: Thyroid studies taken before amiodarone was given (this is NOT amiodarone induced as her levels were abnormal prior) - Patient does not have prior thyroid history - Thyroid U/S 07/16/18: showed heterogenous thyroid with multiple nodules bilaterally. She will need outpatient FNA Bx of the complex Left Lobe cyst (please see full report) - Methimazole 20mg PO Q8H - Off Propranolol 5 mg PO TID due to hypotension - Monitor LFTs - Endocrinology (Dr. Gayle) Anemia Likely Secondary to Chronic Diseases, stable Dysfunctional uterine bleeding - Iron normal, TIBC low, Iron Saturation normal, Ferritin normal - Stool occult blood negative - B12, folate normal - Vaginal US: thickened endometrium - Transfused 1 unit PRBC 07/22/18, 2 unit of PRBC 08/13/18 1 unit on 08/17/18, 1 unit 08/23/18 - Patient has been seen by OBGYN Hospitalist; no contraindication to anticoagulation * recommend outpatient workup for vaginal bleeding, no hysterectomy during this hospitalization - Case discussed with mems process engineer recommending against Eliquis in light of bleeding; recommending for DVT ppx and aspirin if patient can tolerate it LLE DVT s/p IVC filter - Acute thrombosis of the left common femoral and femoral veins with severe reduction of the venous return on 07/18/18 venous doppler - Patient had completed one month on Eliquis; however she continues to have dysfunction uterine bleeding; cardiology is recommending against Eliquis for thrombus given bleeding risk * s/p IVC filter (08/23/18) * Discontinued Eliquis 5 mg PO BID on 08/17 Diabetes, chronic - HgBA1c: 7.8 - Hypoglycemic protocol - Held Lantus 15 units subcutaneous at bedtime Q12 since 08/23/18 * Hypoglycemic 08/23/18 AM - Accuchecks Q6H - ISS Q6H - Off Crestor 5mg PO QHS secondary to LFTs Ventricular Tachycardia, resolved NSTEMI Apical Thrombus LLE DVT s/p IVC filter - Code Blue 07/10: SVT==>VT required amiodarone, magnesium, one shock delivered - Code Blue 07/20: vtach s/p amiodarone, fluid, calcium gluconate, required compressions and shock - s/p IVC filter 08/23/18 - Off Propranolol 5mg PO TID - Eliquis d/c due to bleeding and anemia - Cardiology (Dr. Francisco) * No cath needed * Medical management * No chemical anticoagulation in light of bleeding episodes (patient has dysfunction uterine bleeding required blood transfusions; Ob has been consulted earlier in the hospitalization to inpatient workup)-->recommending heparin 5000 unit subq8 (DVT ppx dose) and aspirin 81mg PO daily; likely thrombus is organized a month of anticoagulation; risk is due to bleeding against stroke * Echo discussed with Dr. Francisco, patient does have residual clot-->aware we cannot anticoagulate given heavy vaginal bleeding; if patient can tolerate possible aspirin Shock Liver; Transminitis, resolved - Hepatitis serology negative - Ammonia: normal - Elevated INR--> vitamin K 08/24 - 08/24: off statin, benadryl, benzo, ambien, and micafungin (gave dose of 08/23) - Continue to monitor LFTs; suspected medication induced or related to low blood pressure - Abd US shows bilateral pleural effusions, patent portal vein, no hydronephrosis, no GB stones or cholecystitis - CT Abdomen/pelvis (08/25/18): limited evaluated evaluation hepatic vein thrombosis. heterogenous attenuation of the liver. - GI (Dr. Murray)- signed off Acute on Chronic Renal Failure, resolved - Nephrology (Dr. Hyde)- signed off 13 mm Left Adrenal Nodule - As seen on CT Chest 07/16/[address] abdomen/pelvis - Will need outpatient follow up for cross sectional imaging for better characterization Ppx: VTE: SCD on Right and contraindicated on Left due to DVT GI: Protonix 40mg GT Q12H * Lactobacillus 1 cap PO Q12H * MVI GT daily * Vitamin C 1,000 NG daily * Vitamin D 50,000 IU Q7D PEG feedings- Pulmocare 40cc/hr with 250 mL water flush Q6H Code status: full code Case was discussed with attending, Dr. Leahy.
[2018-09-20] MEDS: Multiple Vitamins Tab PEG SCH (09:13)
[2018-09-20] MEDS: Pantoprazole 40 mg Susp UD GT SCH ×2 (09:13→21:55)
[2018-09-20] MEDS: Modafinil 50 MG TAB PO SCH (09:13)
[2018-09-20] MEDS: Lactobacillus Acidophilus 500 MU Cap PEG SCH ×2 (09:13→21:55)
[2018-09-20 11:13] LABS: BASO # 0.1 K/uL (0.0-0.2); BASO % 1.4 % (0.0-2.0); EOS # 0.3 K/uL (0.0-0.7); HEMOGLOBIN 9.1 g/dL (11.0-16.0); LYMPH # 1.4 K/uL (1.0-4.3); LYMPH % 17.1 % (20.0-40.0); MEAN CELL VOLUME 88.4 fL (81.0-99.0); MEAN CORPUSCULAR HEMOGLOBIN 29.8 pg (27.0-31.0); MEAN CORPUSCULAR HGB CONC 33.7 g/dL (33.0-37.0); MEAN PLATELET VOLUME 8.3 fL (7.2-11.7); MONO # 0.5 K/uL (0.0-0.8); MONO % 5.9 % (0.0-10.0); NEUT # 5.8 K/uL (1.8-7.0); NEUT % 71.6 % (50.0-75.0); NRBC % 0.1 % (0.0-2.0); RBC 3.07 Mil/uL (3.80-5.20); RED CELL DISTRIBUTION WIDTH 17.1 % (11.5-14.5); WHITE BLOOD COUNT 8.1 K/uL (4.8-10.8)
[2018-09-20 11:15] LABS: ALB/GLOB RATIO 0.8 (1.0-2.1); ALT/SGPT 46 U/L (9-52); AST/SGOT 32 U/L (14-36); BLOOD UREA NITROGEN 28 mg/dL (7-17); CALCIUM 8.5 mg/dl (8.6-10.4); GFR NON-AFRICAN AMERICAN > 60
--- NOTE | 2018-09-20 11:54 | RAD ---
Date of service: 09/20/2018 HISTORY: congestion COMPARISON: 09/18/2018. FINDINGS: Stable position of the tracheostomy tube. LUNGS: The lungs are well inflated and clear. PLEURA: No pleural effusions or pneumothorax. CARDIOVASCULAR: The heart is normal in size. No aortic atherosclerotic calcification present. OSSEOUS STRUCTURES: Within normal limits for the patient's age. VISUALIZED UPPER ABDOMEN: Normal. OTHER FINDINGS: None. IMPRESSION: Stable position of the tracheostomy tube. No acute findings. No significant interval change.
[2018-09-20] MEDS ORDERED: Sodium Chloride 0.9% 1,000 ML IV SCH (21:30)
[2018-09-21] MEDS: (Novolog) Insulin Aspart, Recombinant 100 u/ml 10 ml vial SC SCH ×4 (05:45→17:41)
[2018-09-21 06:34] LABS: ALB/GLOB RATIO 0.8 (1.0-2.1); ALBUMIN 3.2 g/dL (3.5-5.0); ALT/SGPT 51 U/L (9-52); AST/SGOT 134 U/L (14-36); BLOOD UREA NITROGEN 39 mg/dL (7-17); CALCIUM 8.5 mg/dl (8.6-10.4); GFR NON-AFRICAN AMERICAN 58
[2018-09-21 06:52] LABS: BASO # 0.1 K/uL (0.0-0.2); BASO % 1.4 % (0.0-2.0); EOS # 0.1 K/uL (0.0-0.7); EOS % 1.8 % (0.0-4.0); HEMOGLOBIN 9.1 g/dL (11.0-16.0); LYMPH # 1.7 K/uL (1.0-4.3); LYMPH % 20.4 % (20.0-40.0); MEAN CELL VOLUME 87.8 fL (81.0-99.0); MEAN CORPUSCULAR HEMOGLOBIN 30.3 pg (27.0-31.0); MEAN CORPUSCULAR HGB CONC 34.5 g/dL (33.0-37.0); MEAN PLATELET VOLUME 8.4 fL (7.2-11.7); MONO # 0.5 K/uL (0.0-0.8); MONO % 6.7 % (0.0-10.0); NEUT # 5.7 K/uL (1.8-7.0); NEUT % 69.7 % (50.0-75.0); RBC 3.02 Mil/uL (3.80-5.20); RED CELL DISTRIBUTION WIDTH 17.7 % (11.5-14.5); WHITE BLOOD COUNT 8.2 K/uL (4.8-10.8)
--- NOTE | 2018-09-21 07:09 | CP.PCM.PN ---
<Cydney Herbert - Last Filed: 09/21/18 15:00> Subjective - Date & Time of Evaluation Date of Evaluation: 09/21/18 Time of Evaluation: 07:05 - Subjective Subjective: PGY-1 Cydney Herbert D.O. Medicine progress note for Dr. Leahy's service: Patient was seen and examined this morning. She is lying in bed, still with purposely lip/mouth movements and movement of her L arm. Not verbal. Not tracking with her eyes. She had low grade fever last night, cooled with ice packs. Still on vent via trach but has been on CPAP since 10:45 AM 09/20. Objective - Vital Signs/Intake and Output Vital Signs (last 24 hours): Temp Pulse Resp BP Pulse Ox 99.6 F 78 12 113/58 L 100 09/21/18 04:00 09/21/18 04:00 09/21/18 04:00 09/21/18 04:00 09/21/18 04:00 Intake and Output: 09/21/18 09/21/18 06:59 18:59 Intake Total 1590 Output Total 300 Balance 1290 - Medications Medications: Current Medications Albuterol/Ipratropium (Duoneb 3 Mg/0.5 Mg (3 Ml) Ud) 3 ml INH RQ6 PRN PRN Reason: Shortness of Breath Ascorbic Acid (Vitamin C 500 Mg Tab) 1,000 mg NG DAILY [facility] [place] Last Admin: 09/20/18 09:13 Dose: 1,000 mg Dextrose (Dextrose 50% Inj) 0 ml IVP .STAT PRN; Protocol PRN Reason: Hypoglycemia Protocol Dextrose (Glutose 15) 0 gm PO .ONCE PRN; Protocol PRN Reason: Hypoglycemia Protocol Ergocalciferol (Drisdol 50,000 Intl Units Cap) 1 cap GT Q7D MANOLO Stop: 10/06/18 19:16 Last Admin: 09/15/18 18:26 Dose: 1 cap Glucagon (Glucagen Diagnostic Kit) 0 mg IM .STAT PRN; Protocol PRN Reason: Hypoglycemia Protocol Sodium Chloride (Sodium Chloride 0.9%) 1,000 mls @ 50 mls/hr IV .Q20H MANOLO Stop: 09/21/18 09:31 Last Admin: 09/20/18 21:55 Dose: 50 mls/hr Insulin Aspart (Novolog) 0 unit SC Q6H [facility] [place]; Protocol Last Admin: 09/21/18 05:45 Dose: Not Given Insulin Glargine (Lantus) 15 unit SC Q12 [facility] [place] Last Admin: 08/23/18 10:39 Dose: Not Given Lactobacillus Acidophilus (Bacid Acidophilus) 1 cap PEG Q12 [facility] [place] Last Admin: 09/20/18 21:55 Dose: 1 cap Methimazole (Tapazole) 20 mg PO Q8 [facility] [place] Last Admin: 09/21/18 05:10 Dose: 20 mg Modafinil (Provigil) 50 mg PO DAILY [facility] [place] Last Admin: 09/20/18 09:13 Dose: 50 mg Multivitamins (Hexavitamin) 1 tab PEG DAILY [facility] [place] Last Admin: 09/20/18 09:13 Dose: 1 tab Pantoprazole Sodium (Protonix Susp) 40 mg GT Q12H [facility] [place] Last Admin: 09/20/18 21:55 Dose: 40 mg - Labs Labs: 09/21/18 06:42 09/21/18 06:09 PT 11.9 SECONDS (9.7-12.2) 09/04/18 06:22 INR 1.1 09/04/18 06:22 APTT 29 SECONDS (21-34) 09/02/18 05:48 - Additional Findings Additional findings: - Additional Findings Additional findings: - Constitutional Appears: No Acute Distress, Cachectic, Chronically Ill - Head Exam Head Exam: ATRAUMATIC, NORMAL INSPECTION - Eye Exam Eye Exam: EOMI, Normal appearance, PERRL - ENT Exam ENT Exam: Mucous Membranes Moist - Neck Exam Additional comments: trach - Respiratory Exam Respiratory Exam: absent: Respiratory Distress Additional comments: vent - Cardiovascular Exam Cardiovascular Exam: REGULAR RHYTHM - GI/Abdominal Exam GI & Abdominal Exam: Soft. absent: Tenderness Additional comments: PEG tube - Extremities Exam Extremities Exam: Normal Inspection. absent: Joint Swelling, Pedal Edema Very atrophic B/l scabs on knees - Back Exam Back Exam: NORMAL INSPECTION - Neurological Exam Neurological Exam: Alert, Altered, Awake. absent: Normal Gait - Skin Skin Exam: Dry, Intact, Normal Color, Warm Assessment and Plan - Assessment and Plan (Free Text) Assessment: Patient is a 52 yo female originally admitted to the ICU for Septic shock 2/2 to PNA/UTI worsened by cardiac arrest, and anoxic brain injury. Pt is s/p trach and PEG. s/p IVC filter 08/23. Chest tube placement 09/06-09/15. s/p LP 09/15. Patient still unable to be weaned off vent. She has had multiple complications, including DVT and infections. Most recently, MRI showed potential hydrocephalus. LP done but opening pressure was normal. Patient has shown minimal improvement of cognitive and physical function during the course of this hospitalization. Patient does not have any insurance and therefore cannot be placed in rehab/NH. Multiple conversations with regarding poor prognosis- he wishes to keep her full code. Most recently, patient's trach aspiration grew Pseudomonas (09/16) and urine grew VRE (09/19). ID would like to avoid more antibiotics for now as patient has been treated extensively for multiple infections. Patient doing better with CPAP trials. It is very important that PT works with patient daily. Plan: Septic Shock secondary to Pneumonia and Urinary Tract Infection- shock resolved but now has more positive cultures and low-grade fever - Patient susceptible to many infections in ICU setting- attempt to move to floor when possible - Trach aspirate Cx 09/16: Pseudomonas aeruginosa - Urine Cx 09/19: VRE - s/p bronchoscopy (08/23/18) by Dr. Lozada * Pseudomonas aerguinosa * 08/23: Bronchial Washings: Pseudomonas aeruginosa - s/p chest tube 09/06/18, removed 09/15 * Pleural fluid: no growth after 4 days * Chest xray (09/08/18): tracheostomy tube and right sided chest tube. Diffuse bilateral hazy opacities could represent of pulmonary venous congestive changes or bilateral infiltrates. b/l effusions left larger than right - Recent cultures: * 08/27/18 Blood culture: no growth after 5 days * 09/16/18 Trach aspirate culture: Pseudomonas aeruginosa * 09/19/18 Urine culture: VRE * Salmonella, shigella, campylobacteria: not detected - Procalcitonin: 2.89->0.33->0.34 (09/21) - 09/12 CXR shows PICC is coiled in SVC- removed 09/14 - 09/14 Midline placed - 09/15 LP, plts 270 * opening pressure: 21 * Cx no growth * Traumatic tap (RBC 524) * Elevated neutrophils and lymphocytes * Acyclovir 700 mg IV Q8H 09/15-09/19 - D/c Hernandes 09/21 - NS @ 50 mL/hr x12 hrs 09/20-09/21 - Ice packs for fevers as LFTs elevated - Infectious Disease (Dr. Brock)- try to avoid antibiotic for now, patient has had multiple various treatments over hospital course, rec d/c Hernandes Anoxic Encephalopathy, minimal improvement - Code Blue 07/10 and 07/20 - Patient prior knowledge of 5 languages per but does not always follow commands - CT head: no acute intracranial pathology. Age-related changes. No significant interval change. - Brain MRI (09/08/18); no definite mass effect or suspicious extra axial collection. no evidence of acute or subacute brain infarction at this time. Borderline pattern of hydrocephalus - LP 09/15- normal opening pressure (21) - Previously very agitated, especially during the night, this has somewhat improved * Off IV sedation * Discontinue Trazodone as may be contributing to EPS/tardive dyskinesia * Provigil 50 mg PO daily * Ambien 5 mg PO QHS PRN - Neurology (Dr. Pham/George) Acute Respiratory Failure, no improvement Pulmonary Edema Pseudomonas Pneumonia Pleural effusion s/p Trach - Patient underwent tracheostomy 07/24/18, s/p bronchoscopy 08/23, s/p right chest tube insertion 09/06 * Patient had tolerated trach collars in early Aug; however she has been on vent to trach since. Fi02: 30% * CPAP trial started 09/20 at 10:45 AM, successful through at least 09/21 - Most recent trach Cx 09/16: Pseudomonas Aeruginosa - s/p bronchoscopy (08/23/18) by Dr. Lozada * 08/23: Bronchial Washings: Pseudomonas Aeruginosa * 08/23: Fungal Culture: Prelim: negative * 08/23: Mycobacterial culture: negative - s/p chest tube insertion (09/06)- removed 09/15 * pleural fluid: no growth - Chest physiotherapy - Duoneb Q6H PRN - Spoke w/ Neurology Dr. Pham, after review of imaging, unlikely source of overall symptoms/clinical presentation, most likely anoxic brain injury - Pulmonary (Dr. Lozada)- assisting with weaning from trach on vent to trach collar Deconditioning - Patient needs aggressive continued PT/OT DAILY - Legs very atrophic - Social work note (08/09/18): patient is undocumented, has not health insurance, dc planning will be at home with - F/u on 09/20- no change to discharge planning Hyperthyroidism/abnormal thyroid studies (Low TSH and Free T4), improving Thyroid Storm - Note: Thyroid studies taken before amiodarone was given (this is NOT amio darone induced as her levels were abnormal prior) - Patient does not have prior thyroid history - Thyroid U/S 07/16/18: showed heterogenous thyroid with multiple nodules bilaterally. She will need outpatient FNA Bx of the complex Left Lobe cyst (please see full report) - Methimazole 20mg PO Q8H - Off Propranolol 5 mg PO TID due to hypotension - Monitor LFTs - Endocrinology (Dr. Gayle) Anemia likely Secondary to Chronic Diseases, stable Also acute Dysfunctional uterine bleeding - Iron normal, TIBC low, Iron Saturation normal, Ferritin normal - Stool occult blood negative - B12, folate normal - Vaginal US: thickened endometrium - Transfused 1 unit PRBC 07/22/18, 2 unit of PRBC 08/13/18 1 unit on 08/17/18, 1 unit 08/23/18 - Patient has been seen by OBGYN Hospitalist; no contraindication to anticoagulation * recommend outpatient workup for vaginal bleeding, no hysterectomy during this hospitalization - Case discussed with multi media specialist recommending against Eliquis in light of bleeding; recommending for DVT ppx and aspirin if patient can tolerate it LLE DVT- s/p IVC filter - Acute thrombosis of the left common femoral and femoral veins with severe reduction of the venous return on 07/18/18 venous doppler - Patient had completed one month on Eliquis; however she continues to have dysfunction uterine bleeding; cardiology is recommending against Eliquis for thrombus given bleeding risk * s/p IVC filter (08/23/18) * Discontinued Eliquis 5 mg PO BID on 08/17 Diabetes, chronic - HgBA1c: 7.8 - Hypoglycemic protocol - Held Lantus 15 units subcutaneous at bedtime Q12 since 08/23/18 * Hypoglycemic 08/23/18 AM - Accuchecks Q6H - ISS Q6H - Off Crestor 5mg PO QHS secondary to LFTs Shock Liver; Transminitis, resolved - AST elevated 09/21 (134), ALT wnl - Monitor daily - Hepatitis serology negative - Ammonia: normal - Elevated INR--> vitamin K 08/24 - 08/24: off statin, benadryl, benzo, ambien, and micafungin (gave dose of 08/23) - Continue to monitor LFTs; suspected medication induced or related to low blood pressure - Abd US shows bilateral pleural effusions, patent portal vein, no hydronephrosis, no GB stones or cholecystitis - CT Abdomen/pelvis (08/25/18): limited evaluated evaluation hepatic vein thrombosis. heterogenous attenuation of the liver. - GI (Dr. Murray)- signed off Ventricular Tachycardia, resolved NSTEMI Apical Thrombus LLE DVT s/p IVC filter - Code Blue 07/10: SVT==>VT required amiodarone, magnesium, one shock delivered - Code Blue 07/20: vtach s/p amiodarone, fluid, calcium gluconate, required compressions and shock - s/p IVC filter 08/23/18 - Off Propranolol 5mg PO TID - Eliquis d/c due to bleeding and anemia - Cardiology (Dr. Francisco) * No cath needed * Medical management * No chemical anticoagulation in light of bleeding episodes (patient has dysfunction uterine bleeding required blood transfusions; Ob has been consulted earlier in the hospitalization to inpatient workup)-->recommending heparin 5000 unit subq8 (DVT ppx dose) and aspirin 81mg PO daily; likely thrombus is organized a month of anticoagulation; risk is due to bleeding against stroke * Echo discussed with Dr. Francisco, patient does have residual clot-->aware we cannot anticoagulate given heavy vaginal bleeding; if patient can tolerate possible aspirin Acute on Chronic Renal Failure, resolved - Nephrology (Dr. Hyde)- signed off 13 mm Left Adrenal Nodule - As seen on CT Chest 07/16/[address] abdomen/pelvis - Will need outpatient follow up for cross sectional imaging for better characterization Ppx: VTE: SCD on Right and contraindicated on Left due to DVT GI: Protonix 40mg GT Q12H * Lactobacillus 1 cap PO Q12H * MVI GT daily * Vitamin C 1,000 NG daily * Vitamin D 50,000 IU Q7D PEG feedings- Pulmocare 40cc/hr with 250 mL water flush Q6H Code status: full code Case was discussed with attending, Dr. Leahy. <Saira Leahy V - Last Filed: 10/24/18 16:46> Objective - Vital Signs/Intake and Output Vital Signs (last 24 hours): Temp Pulse Resp BP Pulse Ox 99.8 F H 90 13 95/54 L 100 10/24/18 13:00 10/24/18 16:00 10/24/18 13:00 10/24/18 13:00 10/24/18 13:00 Intake and Output: 10/24/18 10/24/18 06:59 18:59 Intake Total 540 Output Total 300 Balance 240 - Medications Medications: Current Medications Acetylcysteine (Acetylcysteine 20%) 4 ml INH RQ4 [facility] [place] Last Admin: 10/24/18 16:27 Dose: 4 ml Albuterol/Ipratropium (Duoneb 3 Mg/0.5 Mg (3 Ml) Ud) 3 ml INH RQ4 [facility] [place] Last Admin: 10/24/18 16:27 Dose: 3 ml Ascorbic Acid (Vitamin C 500 Mg Tab) 1,000 mg NG DAILY [facility] [place] Last Admin: 10/24/18 10:42 Dose: 1,000 mg Aspirin (Aspirin Chewable) 81 mg GT DAILY [facility] [place] Last Admin: 10/24/18 10:43 Dose: 81 mg Dextrose (Dextrose 50% Inj) 0 ml IVP .STAT PRN; Protocol PRN Reason: Hypoglycemia Protocol Dextrose (Glutose 15) 0 gm PO .ONCE PRN; Protocol PRN Reason: Hypoglycemia Protocol Furosemide (Lasix) 20 mg IVP ONCE PRN PRN Reason: PLEURAL EFFUSION Last Admin: 10/21/18 21:30 Dose: 20 mg Glucagon (Glucagen Diagnostic Kit) 0 mg IM .STAT PRN; Protocol PRN Reason: Hypoglycemia Protocol Methimazole (Tapazole) 20 mg PO Q8 [facility] [place] Last Admin: 10/24/18 12:59 Dose: 20 mg Midodrine (Proamatine) 10 mg PO TID [facility] [place] Last Admin: 10/24/18 12:59 Dose: 10 mg Modafinil (Provigil) 50 mg PO DAILY [facility] [place] Last Admin: 10/24/18 10:43 Dose: 50 mg Multivitamins (Hexavitamin) 1 tab PEG DAILY [facility] [place] Last Admin: 10/24/18 10:43 Dose: 1 tab Pantoprazole Sodium (Protonix Susp) 40 mg GT Q12H [facility] [place] Last Admin: 10/24/18 10:43 Dose: 40 mg Tamsulosin HCl (Flomax) 0.4 mg PEG DAILY [facility] [place] Last Admin: 10/24/18 10:43 Dose: 0.4 mg Vitamin A (Vitamin A & D Oint Ud Foilpak) 0.5 ea TOP BID [facility] [place] Last Admin: 10/24/18 10:43 Dose: 0.5 ea - Labs Labs: 10/24/18 06:07 10/24/18 06:07 PT 13.3 SECONDS (9.7-12.2) H 10/23/18 06:05 INR 1.2 10/23/18 06:05 APTT 23 SECONDS (21-34) 10/02/18 06:10 Assessment and Plan (1) Septic shock Status: Acute (2) Acute respiratory failure Status: Acute (3) Urinary tract infection Status: Acute (4) Acute renal failure Status: Acute (5) Aspiration pneumonia Status: Acute (6) Diabetes mellitus Status: Chronic (7) Ventricular arrhythmia Status: Acute (8) Hyperthyroidism Status: Acute (9) Anemia Status: Acute (10) Prophylactic measure Status: Acute Attending/Attestation - Attestation I have personally seen and examined this patient.: Yes I have fully participated in the care of the patient.: Yes I have reviewed all pertinent clinical information, including history, physical exam and plan: Yes
[2018-09-21] MEDS: Modafinil 50 MG TAB PO SCH (08:59)
[2018-09-21] MEDS: Lactobacillus Acidophilus 500 MU Cap PEG SCH ×2 (08:59→21:25)
[2018-09-21] MEDS: Pantoprazole 40 mg Susp UD GT SCH ×2 (08:59→21:25)
[2018-09-21] MEDS: Multiple Vitamins Tab PEG SCH (09:00)
[2018-09-22 05:32] LABS: BASO # 0.1 K/uL (0.0-0.2); BASO % 0.9 % (0.0-2.0); HEMOGLOBIN 10.1 g/dL (11.0-16.0); MONO # 0.5 K/uL (0.0-0.8); WHITE BLOOD COUNT 8.5 K/uL (4.8-10.8)
[2018-09-22 05:34] LABS: EOS # 0.2 K/uL (0.0-0.7); EOS % 2.7 % (0.0-4.0); LYMPH # 1.7 K/uL (1.0-4.3); LYMPH % 19.5 % (20.0-40.0); MEAN CELL VOLUME 88.9 fL (81.0-99.0); MEAN CORPUSCULAR HEMOGLOBIN 30.1 pg (27.0-31.0); MEAN CORPUSCULAR HGB CONC 33.8 g/dL (33.0-37.0); MEAN PLATELET VOLUME 8.2 fL (7.2-11.7); MONO % 5.3 % (0.0-10.0); NEUT # 6.1 K/uL (1.8-7.0); NEUT % 71.6 % (50.0-75.0); RBC 3.36 Mil/uL (3.80-5.20); RED CELL DISTRIBUTION WIDTH 17.7 % (11.5-14.5)
[2018-09-22] MEDS: (Novolog) Insulin Aspart, Recombinant 100 u/ml 10 ml vial SC SCH ×4 (06:00→17:43)
[2018-09-22 06:17] LABS: ALB/GLOB RATIO 0.8 (1.0-2.1); ALBUMIN 3.6 g/dL (3.5-5.0); ALT/SGPT 56 U/L (9-52); AST/SGOT 136 U/L (14-36); BLOOD UREA NITROGEN 32 mg/dL (7-17); CALCIUM 8.7 mg/dl (8.6-10.4); GFR NON-AFRICAN AMERICAN > 60
--- NOTE | 2018-09-22 09:29 | CP.PCM.PN ---
Subjective - Date & Time of Evaluation Date of Evaluation: 09/22/18 Time of Evaluation: 09:25 - Subjective Subjective: Medical Attending Note: Patient seen and examined. present at bedside. Unable to ROS given clinical condition. No events overnight. Objective - Vital Signs/Intake and Output Vital Signs (last 24 hours): Temp Pulse Resp BP Pulse Ox 98 F 104 H 16 124/72 100 09/22/18 04:00 09/22/18 04:00 09/22/18 04:00 09/22/18 04:00 09/22/18 04:00 Intake and Output: 09/22/18 09/22/18 06:59 18:59 Intake Total 1110 Output Total 530 Balance 580 - Medications Medications: Current Medications Albuterol/Ipratropium (Duoneb 3 Mg/0.5 Mg (3 Ml) Ud) 3 ml INH RQ6 PRN PRN Reason: Shortness of Breath Ascorbic Acid (Vitamin C 500 Mg Tab) 1,000 mg NG DAILY [facility] Last Admin: 09/21/18 08:59 Dose: 1,000 mg Dextrose (Dextrose 50% Inj) 0 ml IVP .STAT PRN; Protocol PRN Reason: Hypoglycemia Protocol Dextrose (Glutose 15) 0 gm PO .ONCE PRN; Protocol PRN Reason: Hypoglycemia Protocol Ergocalciferol (Drisdol 50,000 Intl Units Cap) 1 cap GT Q7D [facility] Stop: 10/06/18 19:16 Last Admin: 09/15/18 18:26 Dose: 1 cap Glucagon (Glucagen Diagnostic Kit) 0 mg IM .STAT PRN; Protocol PRN Reason: Hypoglycemia Protocol Acyclovir 400 mg/ Sodium (Chloride) 100 mls @ 100 mls/hr IV Q8H [facility]; Protocol Stop: 10/02/18 09:31 Insulin Aspart (Novolog) 0 unit SC Q6H [facility]; Protocol Last Admin: 09/22/18 06:00 Dose: Not Given Insulin Glargine (Lantus) 15 unit SC Q12 [facility] Last Admin: 08/23/18 10:39 Dose: Not Given Lactobacillus Acidophilus (Bacid Acidophilus) 1 cap PEG Q12 [facility] Last Admin: 09/21/18 21:25 Dose: 1 cap Methimazole (Tapazole) 20 mg PO Q8 [facility] Last Admin: 09/22/18 05:00 Dose: 20 mg Modafinil (Provigil) 50 mg PO DAILY [facility] Last Admin: 09/21/18 08:59 Dose: 50 mg Multivitamins (Hexavitamin) 1 tab PEG DAILY [facility] Last Admin: 09/21/18 09:00 Dose: 1 tab Pantoprazole Sodium (Protonix Susp) 40 mg GT Q12H [facility] Last Admin: 09/21/18 21:25 Dose: 40 mg - Labs Labs: 09/22/18 05:26 09/22/18 05:26 PT 11.9 SECONDS (9.7-12.2) 09/04/18 06:22 INR 1.1 09/04/18 06:22 APTT 29 SECONDS (21-34) 09/02/18 05:48 - Constitutional Appears: Chronically Ill - Head Exam Head Exam: NORMAL INSPECTION - Eye Exam Eye Exam: EOMI - ENT Exam ENT Exam: Mucous Membranes Moist - Respiratory Exam Respiratory Exam: Decreased Breath Sounds, Rales, NORMAL BREATHING PATTERN - Cardiovascular Exam Cardiovascular Exam: REGULAR RHYTHM, +S1, +S2 - GI/Abdominal Exam GI & Abdominal Exam: Distended, Soft, Normal Bowel Sounds. absent: Firm, Guarding, Rigid, Tenderness, Rebound Additional comments: + peg c/d/i - Extremities Exam Additional comments: muscle wasting bilateral lower extremity skin breakdown over the knees - Neurological Exam Neurological Exam: Altered - Skin Skin Exam: Normal Color, Warm Assessment and Plan (1) Septic shock Status: Acute (2) Acute respiratory failure Status: Acute (3) Urinary tract infection Status: Acute (4) Acute renal failure Status: Acute (5) Aspiration pneumonia Status: Acute (6) Diabetes mellitus Status: Chronic (7) Ventricular arrhythmia Status: Acute (8) Hyperthyroidism Status: Acute (9) Anemia Status: Acute (10) Prophylactic measure Status: Acute Attending/Attestation - Attestation I have personally seen and examined this patient.: Yes I have fully participated in the care of the patient.: Yes I have reviewed all pertinent clinical information, including history, physical exam and plan: Yes Notes (Text): 1) Septic Shock secondary to Pneumonia and Urinary Tract Infection New Pneumonia-->pseudomonas Encephalitis Assessment/Plan * Infectious Disease (Dr. Brock) on board-->help appreciated * Meropenem d/c 08/27 * Maxipime 1gm [id number] (from 08/27/18 to 09/12/18) * Trach Aspirate: Psuedomonas * s/p bronchoscopy (08/23/18) * Pseudomonas aerguinosa * dictated by dr maciel * 08/23: Bronchial Washings: pseudomonas Aeruginosa * 08/23: Fungal Culture: Prelim: negative * 08/23: Mycobacterial culture: negative * s/p chest tube 09/06/18; removed 09/15 * Pleural fluid: no growth * Recent culture: * 08/25/18 Blood culture: no growth 5 days X 2 * 08/23/18 Blood culture: no growth after 5 days X 2 * 08/27/18 Blood culture: no growth after 5 days * 08/27/18 UA and Urine Culture: no growth * Salmonella, shigella, or campylobacteria: not detected. * Trachasp: Pseudomonas Aeruginosa-->sensitive to Cipro * 09/19 Urine culture: gram positive cocci * s/p Lumbar Puncture * Opening pressure: 21; normal no evidence of ICP * CSF Culture: No growth * No Mycobact nor fungal observed * HSV 1 DNA and HSV 2: not detected * no CSF growth * pending HSV * Discussed with Dr. Brock, continue Acyclovir 700mg IV Q8H for 10 days to cover. * Discussed with Dr. Soniya Parkeh, atraumatic tap. * Procalcitonin: 2.89 (08/28)-->0.33 (09/04)--->0.34 2) Shock Liver; Transminitis Assessment/Plan * GI has signed off * Hepatitis serology negative * Ammonia: normal * elevated INR--> vitamin K 08/24 * 08/24: off statin, benadryl, benzo, ambien, and micafungin (gave dose of 08/04 1) * Continue to monitor LFTs; suspected medication induced or related to low blood pressure * Gi (Dr. Murray) * discussed case with fellow 08/26/18 * Abd US shows bilateral pleural effusions, patent portal vein, no hydronephrosis, no GB stones or cholecystitis * CT Abdomen/pelvis (08/25/18): limited evaluated evaluation hepatic vein thrombosis. heterogenous attenuation of the liver. 3) Anoxic Encephalopathy Assessment/Plan * Code Blue 07/10 and 07/20 * Patient prior knowledge of 5 languages per but does not follow commands * CT head: no acute intracranial pathology. Age-related changes. no significant interval change. * suspect cognitive decline since second code blue * Brain MRI (09/08/18); no definite mass effect or suspicious extra axial collection. no evidence of acute or subacute brain infarction at this time. Borderline pattern of hydrocephalus * s/p Lumbar Puncture 09/15 * Opening pressure: 21; normal no evidence of ICP * CSF Culture: No growth * No Mycobact nor fungal observed * HSV 1 DNA and HSV 2: not detected 4) Acute Respiratory Failure Pulmonary Edema Pseudomona Pneumonia s/p Trach Assessment/Plan * Patient underwent tracheostomy 07/24/18, s/p bronchoscopy 08/23, s/p right chest tube insertion * Patient had tolerated trach collarsthru Tuesday 08/14; however she has been on vent to trach. Fi02: 30 percent * Pulmonary (Dr. Maciel) on board-->assisting with weaning from trach on vent to trach collar * Duonebs 3ml Inh Q6H * s/p bronchoscopy (08/23/18) * Pseudomonas aerguinosa * dictated by dr maciel * 08/23: Bronchial Washings: pseudomonas Aeruginosa * 08/23: Fungal Culture: Prelim: negative * 08/23: Mycobacterial culture: prelim * s/p chest tube insertion (09/06/18) was removed 09/15 * pleural fluid: no growth * Chest physiotherapy 4) Ventricular Tachycardia NSTEMI Apical Thrombus LLE DVT s/p IVC filter Assessment/Plan * Code Blue 07/10: SVT==>VT required amiodarone, magnesium, one shock delivered * Code Blue 07/20: vtach s/p amiodarone, fluid, calcium gluconate, required compressions and shock * S/p IVC filter 08/23/18 * Cardiology Dr Francisco on case help appreciated * No cath needed. * Medical management * No chemical anticoagulation in light of bleeding episodes (patient has dysfunction uterine bleeding required blood transfusions; Ob has been consulted earlier in the hospitalization to inpatient workup)-->recommending heparin 5000 unit subq8 (DVT ppx dose) and aspirin 81mg PO daily; likely thrombus is organized a month of anticoagulation; risk is due to bleeding against stroke * d/c Propranolol 5mg PO TID (hold SBP<100 and HR<60) * Eliquis d/c bleeding and anemia-->dvt ppx and aspirin * Echo discussed with Dr. Francisco, patient does have residual clot-->aware we cannot anticoagulate given heavy vaginal bleeding; if patient can tolerate possible aspirin * H/H stable in 10's no vaginal bleeding noted since chemical anticoagulation d/c; will start prophylactic Aspirin 81mg PO daily 4) VRE Urinary Tract Infection (resolved) Assessment/Plan * OFF Contact isolation 5) Diabetes-->chronic Assessment/Plan * HgBA1c: 7.8 * Hypoglycemic protocol * held Lantus 15 units subcutaneous at bedtime Q12 since 08/23/18 * Hypoglycemic 08/23/18 AM * Accuchecks Q6H * Novolog sliding scale * off Crestor 5mg POqHS secondary to LFTs 6) Acute on Chronic Renal Failure (resolved) Assessment/Plan * Nephrology (Dr. Hyde) on board--> help appreciated-->has signed off 7) Hyperthyroidism? Low TSH, and Free T4 Thyroid Storm Assessment/Plan * Note Thyroid studies taken before amiodarone was given (please advised this is not amiodarone induced her levels were abnormal prior) * Patient does not have prior thyroid history * Endocrinology (Dr. Gayle) on board help appreciated * Thyroid U/S 07/16/18: showed heterogenous thyroid with multiple nodules bilaterally. She will need outpatient FNA Bx of the complex Left Lobe cyst (please see full report) * Methimazole 20mg PO TID * off Propranolol 5 mg PO TID due to hypotension * Monitor LFTs 8) Anemia Likely Secondary to Chronic Diseases Dysfunctional uterine bleeding Assessment/Plan * Iron normal, TIBC low, Iron Saturation normal, Ferritin normal * Stool occult blood negative * B12 normal * Folate Normal * Transfused 1 unit PRBC 07/22/18, 2 unit of PRBC 08/13/18 1 unit on 08/17/18, 1 unit 08/23/18 * Patient has been seen by OB Hospitalist; no contraindication to anticoagu lation * recommend outpatient workup for vaginal bleeding * Case discussed with hoop riveting machine operator recommending against eliquis in light of bleeding; recommending for DVT ppx and aspirin if patient can tolerate it 9) Vitamin D deficiency Assessment plan * 50,000 international units once a week (3 doses given so far) * Restart Vitamin D 50,000 IU once a week started on 08/18/18) 10) Thrombocytopenia-->resolved Assessment plan * HIT/RUSTY were negative 11) 13 mm Left Adrenal Nodule * As seen on CT Chest 07/16/[address] abdomen/pelvis * Will need outpatient follow up for cross sectional imaging for better characterization 12) Hypernatremia (resolved) * Start free fluid washes 250ml Q6 via tube feeds 13) LLE DVT s/p IVC filter * Eliquis 5 mg PO BID d/c 08/17 * Acute thrombosis of the left common femoral and femoral veins with severe reduction of the venous return on 07/18/18 venous doppler * Patient had completed one month on Eliquis; however she continues to have dysfunction uterine bleeding; cardiology is recommending against eliquis for thrombus given bleeding risk * repeat doppler to see if DVT has resolved by ultrasound repeat * s/p IVC filter (08/23/18) 14) Deconditioning * Patient needs continued PT/O * Respiratory attempting to wean but remains on vent. * Brain MRI (09/08/18); no definite mass effect or suspicious extra axial collection. no evidence of acute or subacute brain infarction at this time. Borderline pattern of hydrocephalus * Patient unable to get LTAC given lack of insurance 15) Tardive Dyskinesa Assessment/Plan * D/c Trazodone due to side effect * Given Ativan 0.5mg IV X1 to reverse 16) Prophylactic measure * Protonix 40mg GT BID * Lactobacillus 1 cap PO BID * MVI 1x/day * Vitamin C 1,000 NG 1x/day * s/p Trach and Peg * SCD on Right and contraindicated on Left due to DVT * Peg feedings * Pulmcar 40cc/hr * patient had frequent BMs on prior formula; no diarrhea; we have spoken with dietary to change it on 08/19/18 * PICC Line d/c due to coiling * Patient has midline access * Note: speak to patient in [place] to assess neurologic status-->she does follow sometimes * s/p bronchoscopy 08/23 * s/p IVC filter 08/23 * s/p LP 09/15 * s/p right chest tube insertion 09/06; removed 09/15 * patient is FULL CODE * Provigil 50mg PO daily started to promote wakefulness during the day. * Social work note (08/09/18): patient is undocumented, has not health insurance, dc planning will be at home with Disposition: Patient to continue Acyclovir to cover for encephalitis; HSV pending. Patient pending repeat UA/Urine culture. Wound care nurse to re-evaluat e.
[2018-09-22] MEDS: Pantoprazole 40 mg Susp UD GT SCH ×2 (09:59→21:50)
[2018-09-22] MEDS: Lactobacillus Acidophilus 500 MU Cap PEG SCH ×2 (09:59→21:50)
[2018-09-22] MEDS: Modafinil 50 MG TAB PO SCH (09:59)
[2018-09-22] MEDS: Multiple Vitamins Tab PEG SCH (10:00)
[2018-09-22] MEDS: Acyclovir 400 MG in Sodium Chloride 0.9% 100 ML IV SCH ×2 (11:07→17:31)
[2018-09-22 13:12] LABS: SQUAMOUS EPITHIAL < 1 /hpf (0-5); URINE BILIRUBIN NEGATIVE (NEGATIVE); URINE BLOOD NEGATIVE (NEGATIVE); URINE CLARITY Clear (Clear); URINE COLOR Yellow (YELLOW); URINE GLUCOSE (UA) NORMAL (Normal); URINE LEUKOCYTE ESTERASE TRACE Leu/uL (Negative); URINE PROTEIN NEGATIVE (NEGATIVE); URINE UROBILINOGEN NORMAL mg/dL (0.2-1.0)
[2018-09-22] MEDS: Ergocalciferol 50,000 Intl Units Cap GT SCH (18:30)
[2018-09-23] MEDS: (Novolog) Insulin Aspart, Recombinant 100 u/ml 10 ml vial SC SCH ×5 (00:45→23:50)
[2018-09-23] MEDS: Acyclovir 400 MG in Sodium Chloride 0.9% 100 ML IV SCH ×3 (02:25→18:04)
[2018-09-23 06:30] LABS: BASO % 0.5 % (0.0-2.0); EOS # 0.1 K/uL (0.0-0.7); EOS % 1.8 % (0.0-4.0); HEMOGLOBIN 8.3 g/dL (11.0-16.0); LYMPH # 1.2 K/uL (1.0-4.3); LYMPH % 14.7 % (20.0-40.0); MEAN CELL VOLUME 88.7 fL (81.0-99.0); MEAN CORPUSCULAR HEMOGLOBIN 29.6 pg (27.0-31.0); MEAN CORPUSCULAR HGB CONC 33.4 g/dL (33.0-37.0); MEAN PLATELET VOLUME 8.1 fL (7.2-11.7); MONO # 0.4 K/uL (0.0-0.8); MONO % 5.4 % (0.0-10.0); NEUT # 6.3 K/uL (1.8-7.0); NEUT % 77.6 % (50.0-75.0); RBC 2.79 Mil/uL (3.80-5.20); RED CELL DISTRIBUTION WIDTH 17.2 % (11.5-14.5); WHITE BLOOD COUNT 8.1 K/uL (4.8-10.8)
[2018-09-23 06:59] LABS: ALB/GLOB RATIO 0.8 (1.0-2.1); ALT/SGPT 47 U/L (9-52); AST/SGOT 67 U/L (14-36); BLOOD UREA NITROGEN 33 mg/dL (7-17); CALCIUM 8.5 mg/dl (8.6-10.4); GFR NON-AFRICAN AMERICAN > 60
--- NOTE | 2018-09-23 09:03 | RAD ---
Date of service: 09/23/2018 HISTORY: cough COMPARISON: 09/20/2018 FINDINGS: LUNGS: No active pulmonary disease. PLEURA: No significant pleural effusion identified, no pneumothorax apparent. CARDIOVASCULAR: No aortic atherosclerotic calcification present. Normal cardiac size. No congestive change. Tracheostomy tube noted. OSSEOUS STRUCTURES: No significant abnormalities. VISUALIZED UPPER ABDOMEN: Normal. OTHER FINDINGS: None. IMPRESSION: No active disease.
[2018-09-23] MEDS: Modafinil 50 MG TAB PO SCH (09:51)
[2018-09-23] MEDS: Pantoprazole 40 mg Susp UD GT SCH ×2 (09:51→22:39)
[2018-09-23] MEDS: Multiple Vitamins Tab PEG SCH (09:51)
[2018-09-23] MEDS: Lactobacillus Acidophilus 500 MU Cap PEG SCH ×2 (12:00→22:39)
--- NOTE | 2018-09-23 13:12 | CP.PCM.PN ---
<Óscar Saldana - Last Filed: 09/23/18 14:43> Subjective - Date & Time of Evaluation Date of Evaluation: 09/23/18 Time of Evaluation: 13:17 - Subjective Subjective: PGY3 Note for Dr. Leahy Pt seen and examined at bedside; is moving without purpose with tongue slapping/tardive dyskinesia movements; unable to participate in ROS me aningfully. As per nursing patient has been making attempts to speak with what seems meaningful conversation and reactions. Objective - Vital Signs/Intake and Output Vital Signs (last 24 hours): Temp Pulse Resp BP Pulse Ox 98.5 F 95 H 20 106/58 L 100 09/23/18 12:00 09/23/18 08:00 09/23/18 08:00 09/23/18 08:00 09/23/18 08:00 Intake and Output: 09/23/18 09/23/18 06:59 18:59 Intake Total 220 100 Output Total 650 Balance -430 100 - Medications Medications: Current Medications Albuterol/Ipratropium (Duoneb 3 Mg/0.5 Mg (3 Ml) Ud) 3 ml INH RQ6 PRN PRN Reason: Shortness of Breath Ascorbic Acid (Vitamin C 500 Mg Tab) 1,000 mg NG DAILY [facility] Last Admin: 09/23/18 09:51 Dose: 1,000 mg Aspirin (Aspirin Chewable) 81 mg GT DAILY [facility] Last Admin: 09/23/18 09:51 Dose: 81 mg Dextrose (Dextrose 50% Inj) 0 ml IVP .STAT PRN; Protocol PRN Reason: Hypoglycemia Protocol Dextrose (Glutose 15) 0 gm PO .ONCE PRN; Protocol PRN Reason: Hypoglycemia Protocol Ergocalciferol (Drisdol 50,000 Intl Units Cap) 1 cap GT Q7D [facility] Stop: 10/06/18 19:16 Last Admin: 09/22/18 18:30 Dose: 1 cap Glucagon (Glucagen Diagnostic Kit) 0 mg IM .STAT PRN; Protocol PRN Reason: Hypoglycemia Protocol Acyclovir 400 mg/ Sodium (Chloride) 100 mls @ 100 mls/hr IV Q8H [facility]; Protocol Stop: 10/02/18 10:31 Last Admin: 09/23/18 09:52 Dose: 100 mls/hr Insulin Aspart (Novolog) 0 unit SC Q6H [facility]; Protocol Last Admin: 09/23/18 06:45 Dose: 2 units Insulin Glargine (Lantus) 15 unit SC Q12 [facility] Last Admin: 08/23/18 10:39 Dose: Not Given Lactobacillus Acidophilus (Bacid Acidophilus) 1 cap PEG Q12 [facility] Last Admin: 09/22/18 21:50 Dose: 1 cap Methimazole (Tapazole) 20 mg PO Q8 [facility] Last Admin: 09/23/18 06:45 Dose: 20 mg Modafinil (Provigil) 50 mg PO DAILY [facility] Last Admin: 09/23/18 09:51 Dose: 50 mg Multivitamins (Hexavitamin) 1 tab PEG DAILY [facility] Last Admin: 09/23/18 09:51 Dose: 1 tab Pantoprazole Sodium (Protonix Susp) 40 mg GT Q12H [facility] Last Admin: 09/23/18 09:51 Dose: 40 mg Tamsulosin HCl (Flomax) 0.4 mg PEG DAILY [facility] Last Admin: 09/23/18 09:51 Dose: 0.4 mg - Labs Labs: 09/23/18 06:19 09/23/18 06:19 PT 11.9 SECONDS (9.7-12.2) 09/04/18 06:22 INR 1.1 09/04/18 06:22 APTT 29 SECONDS (21-34) 09/02/18 05:48 - Constitutional Appears: Cachectic, Chronically Ill - Head Exam Additional comments: on trach vent - Eye Exam Eye Exam: absent: EOMI, PERRL - ENT Exam ENT Exam: Mucous Membranes Moist - Neck Exam Neck Exam: absent: Lymphadenopathy - Respiratory Exam Respiratory Exam: Rales, NORMAL BREATHING PATTERN. absent: Clear to Ausculation Bilateral, Rhonchi, Wheezes - Cardiovascular Exam Cardiovascular Exam: REGULAR RHYTHM - GI/Abdominal Exam GI & Abdominal Exam: Soft, Normal Bowel Sounds. absent: Tenderness Additional comments: cachectic - Extremities Exam Extremities Exam: Full ROM. absent: Calf Tenderness - Back Exam Back Exam: absent: CVA tenderness (L), CVA tenderness (R) - Neurological Exam Neurological Exam: Awake. absent: Oriented x3 - Skin Skin Exam: Warm Assessment and Plan - Assessment and Plan (Free Text) Assessment: Septic Shock secondary to Pneumonia and Urinary Tract Infection New Pneumonia-->pseudomonas Encephalitis * Infectious Disease (Dr. Brock) on board-->help appreciated * Meropenem d/c 08/27 * Maxipime 1gm [id number] (from 08/27/18 to 09/12/18) * Trach Aspirate: Psuedomonas * s/p bronchoscopy (08/23/18) * Pseudomonas aerguinosa * dictated by dr maciel * 08/23: Bronchial Washings: pseudomonas Aeruginosa * 08/23: Fungal Culture: Prelim: negative * 08/23: Mycobacterial culture: negative * s/p chest tube 09/06/18; removed 09/15 * Pleural fluid: no growth * Recent culture: * 08/25/18 Blood culture: no growth 5 days X 2 * 08/23/18 Blood culture: no growth after 5 days X 2 * 08/27/18 Blood culture: no growth after 5 days * 08/27/18 UA and Urine Culture: no growth * Salmonella, shigella, or campylobacteria: not detected. * Trachasp: Pseudomonas Aeruginosa-->sensitive to Cipro * 09/19 Urine culture: gram positive cocci * s/p Lumbar Puncture * Opening pressure: 21; normal no evidence of ICP * CSF Culture: No growth * No Mycobact nor fungal observed * HSV 1 DNA and HSV 2: not detected * no CSF growth * pending HSV * Discussed with Dr. Brock, continue Acyclovir 700mg IV Q8H for 10 days to cover. * Discussed with Dr. Soniya Parekh, atraumatic tap. * Procalcitonin: 2.89 (08/28)-->0.33 (09/04)--->0.34 Shock Liver; Transminitis; resolving * GI has signed off * Hepatitis serology negative * Ammonia: normal * elevated INR--> vitamin K 08/24 * 08/24: off statin, benadryl, benzo, ambien, and micafungin (gave dose of 08/23) * Continue to monitor LFTs; suspected medication induced or related to low blood pressure * Gi (Dr. Murray) * discussed case with fellow 08/26/18 * Abd US shows bilateral pleural effusions, patent portal vein, no hydronephrosis, no GB stones or cholecystitis * CT Abdomen/pelvis (08/25/18): limited evaluated evaluation hepatic vein thrombosis. heterogenous attenuation of the liver. Anoxic Encephalopathy * Code Blue 07/10 and 07/20 * Patient prior knowledge of 5 languages per but does not follow commands * CT head: no acute intracranial pathology. Age-related changes. no significant interval change. * suspect cognitive decline since second code blue * Brain MRI (09/08/18); no definite mass effect or suspicious extra axial collection. no evidence of acute or subacute brain infarction at this time. Borderline pattern of hydrocephalus * s/p Lumbar Puncture 09/15 * Opening pressure: 21; normal no evidence of ICP * CSF Culture: No growth * No Mycobact nor fungal observed * HSV 1 DNA and HSV 2: not detected Acute Respiratory Failure Pulmonary Edema Pseudomona Pneumonia s/p Trach * Patient underwent tracheostomy 07/24/18, s/p bronchoscopy 08/23, s/p right chest tube insertion * Patient had tolerated trach collarsthru Tuesday 08/14; however she has been on vent to trach. Fi02: 30 percent * Pulmonary (Dr. Maciel) on board-->assisting with weaning from trach on vent to trach collar * Duonebs 3ml Inh Q6H * s/p bronchoscopy (08/23/18) * Pseudomonas aerguinosa * dictated by dr maciel * 08/23: Bronchial Washings: pseudomonas Aeruginosa * 08/23: Fungal Culture: Prelim: negative * 08/23: Mycobacterial culture: prelim * s/p chest tube insertion (09/06/18) was removed 09/15 * pleural fluid: no growth * Chest physiotherapy Ventricular Tachycardia NSTEMI Apical Thrombus LLE DVT s/p IVC filter * Code Blue 07/10: SVT==>VT required amiodarone, magnesium, one shock delivered * Code Blue 07/20: vtach s/p amiodarone, fluid, calcium gluconate, required compressions and shock * S/p IVC filter 08/23/18 * Cardiology Dr Francisco on case help appreciated * No cath needed. * Medical management * No chemical anticoagulation in light of bleeding episodes (patient has dysfunction uterine bleeding required blood transfusions; Ob has been consulted earlier in the hospitalization to inpatient workup)-->recommending heparin 5000 unit subq8 (DVT ppx dose) and aspirin 81mg PO daily; likely thrombus is organized a month of anticoagulation; risk is due to bleeding against stroke * d/c Propranolol 5mg PO TID (hold SBP<100 and HR<60) * Eliquis d/c bleeding and anemia-->dvt ppx and aspirin * Echo discussed with Dr. Francisco, patient does have residual clot-->aware we cannot anticoagulate given heavy vaginal bleeding; if patient can tolerate possible aspirin * H/H stable in 10's no vaginal bleeding noted since chemical anticoagulation d/c; c.w Aspirin 81mg PO daily VRE Urinary Tract Infection (resolved) * OFF Contact isolation Diabetes-->chronic * HgBA1c: 7.8 * Hypoglycemic protocol * held Lantus 15 units subcutaneous at bedtime Q12 since 08/23/18 * Hypoglycemic 08/23/18 AM * Accuchecks Q6H * Novolog sliding scale * off Crestor 5mg POqHS secondary to LFTs Acute on Chronic Renal Failure (resolved) * Nephrology (Dr. Hyde) on board--> help appreciated-->has signed off Hyperthyroidism? Low TSH, and Free T4 Thyroid Storm * Note Thyroid studies taken before amiodarone was given (please advised this is not amiodarone induced her levels were abnormal prior) * Patient does not have prior thyroid history * Endocrinology (Dr. Gayle) on board help appreciated * Thyroid U/S 07/16/18: showed heterogenous thyroid with multiple nodules bilaterally. She will need outpatient FNA Bx of the complex Left Lobe cyst (please see full report) * Methimazole 20mg PO TID * off Propranolol 5 mg PO TID due to hypotension * Monitor LFTs Anemia Likely Secondary to Chronic Diseases Dysfunctional uterine bleeding * Iron normal, TIBC low, Iron Saturation normal, Ferritin normal * Stool occult blood negative * B12 normal * Folate Normal * Transfused 1 unit PRBC 07/22/18, 2 unit of PRBC 08/13/18 1 unit on 08/17/18, 1 unit 08/23/18 * Patient has been seen by OB Hospitalist; no contraindication to anticoagulation * recommend outpatient workup for vaginal bleeding * Case discussed with carton forming machine operator recommending against eliquis in light of bleeding; recommending for DVT ppx and aspirin if patient can tolerate it Vitamin D deficiency * 50,000 international units once a week (3 doses given so far) * Restart Vitamin D 50,000 IU once a week started on 08/18/18) Thrombocytopenia-->resolved * HIT/RUSTY were negative 13 mm Left Adrenal Nodule * As seen on CT Chest 07/16/[address] abdomen/pelvis * Will need outpatient follow up for cross sectional imaging for better characterization Hypernatremia (resolved) * Start free fluid washes 250ml Q6 via tube feeds * D5 Free water @ 100ml 09/23/18 LLE DVT s/p IVC filter * Eliquis 5 mg PO BID d/c 08/17 * Acute thrombosis of the left common femoral and femoral veins with severe reduction of the venous return on 07/18/18 venous doppler * Patient had completed one month on Eliquis; however she continues to have dysfunction uterine bleeding; cardiology is recommending against eliquis for thrombus given bleeding risk * repeat doppler to see if DVT has resolved by ultrasound repeat * s/p IVC filter (08/23/18) Deconditioning * Patient needs continued PT/O * reposition q2h * Respiratory attempting to wean but remains on vent. * Brain MRI (09/08/18); no definite mass effect or suspicious extra axial collection. no evidence of acute or subacute brain infarction at this time. Borderline pattern of hydrocephalus * Patient unable to get LTAC given lack of insurance Tardive Dyskinesa * D/c Trazodone due to side effect * Given Ativan 0.5mg IV X1 to reverse Prophylactic measure * Protonix 40mg GT BID * Lactobacillus 1 cap PO BID * MVI 1x/day * Vitamin C 1,000 NG 1x/day * s/p Trach and Peg * SCD on Right and contraindicated on Left due to DVT * Peg feedings * Pulmcar 40cc/hr * patient had frequent BMs on prior formula; no diarrhea; we have spoken with dietary to change it on 08/19/18 * PICC Line d/c due to coiling * Patient has midline access * Note: speak to patient in alexis to assess neurologic status-->she does follow sometimes * s/p bronchoscopy 08/23 * s/p IVC filter 08/23 * s/p LP 09/15 * s/p right chest tube insertion 09/06; removed 09/15 * patient is FULL CODE * Provigil 50mg PO daily started to promote wakefulness during the day. * Social work note (08/09/18): patient is undocumented, has not health insurance, dc planning will be at home with Disposition: Patient to continue Acyclovir to cover for encephalitis; HSV pending. Patient pending repeat UA/Urine culture. Wound care nurse to re-evaluate. Case discussed and seen with Dr. Armond Saldana PGY3 <Saira Leahy V - Last Filed: 10/24/18 16:47> Objective - Vital Signs/Intake and Output Vital Signs (last 24 hours): Temp Pulse Resp BP Pulse Ox 99.8 F H 90 13 95/54 L 100 10/24/18 13:00 10/24/18 16:00 10/24/18 13:00 10/24/18 13:00 10/24/18 13:00 Intake and Output: 10/24/18 10/24/18 06:59 18:59 Intake Total 540 Output Total 300 Balance 240 - Medications Medications: Current Medications Acetylcysteine (Acetylcysteine 20%) 4 ml INH RQ4 [facility] Last Admin: 10/24/18 16:27 Dose: 4 ml Albuterol/Ipratropium (Duoneb 3 Mg/0.5 Mg (3 Ml) Ud) 3 ml INH RQ4 [facility] Last Admin: 10/24/18 16:27 Dose: 3 ml Ascorbic Acid (Vitamin C 500 Mg Tab) 1,000 mg NG DAILY [facility] Last Admin: 10/24/18 10:42 Dose: 1,000 mg Aspirin (Aspirin Chewable) 81 mg GT DAILY [facility] Last Admin: 10/24/18 10:43 Dose: 81 mg Dextrose (Dextrose 50% Inj) 0 ml IVP .STAT PRN; Protocol PRN Reason: Hypoglycemia Protocol Dextrose (Glutose 15) 0 gm PO .ONCE PRN; Protocol PRN Reason: Hypoglycemia Protocol Furosemide (Lasix) 20 mg IVP ONCE PRN PRN Reason: PLEURAL EFFUSION Last Admin: 10/21/18 21:30 Dose: 20 mg Glucagon (Glucagen Diagnostic Kit) 0 mg IM .STAT PRN; Protocol PRN Reason: Hypoglycemia Protocol Methimazole (Tapazole) 20 mg PO Q8 [facility] Last Admin: 10/24/18 12:59 Dose: 20 mg Midodrine (Proamatine) 10 mg PO TID [facility] Last Admin: 10/24/18 12:59 Dose: 10 mg Modafinil (Provigil) 50 mg PO DAILY [facility] Last Admin: 10/24/18 10:43 Dose: 50 mg Multivitamins (Hexavitamin) 1 tab PEG DAILY [facility] Last Admin: 10/24/18 10:43 Dose: 1 tab Pantoprazole Sodium (Protonix Susp) 40 mg GT Q12H [facility] Last Admin: 10/24/18 10:43 Dose: 40 mg Tamsulosin HCl (Flomax) 0.4 mg PEG DAILY [facility] Last Admin: 10/24/18 10:43 Dose: 0.4 mg Vitamin A (Vitamin A & D Oint Ud Foilpak) 0.5 ea TOP BID [facility] Last Admin: 10/24/18 10:43 Dose: 0.5 ea - Labs Labs: 10/24/18 06:07 10/24/18 06:07 PT 13.3 SECONDS (9.7-12.2) H 10/23/18 06:05 INR 1.2 10/23/18 06:05 APTT 23 SECONDS (21-34) 10/02/18 06:10 Assessment and Plan (1) Septic shock Status: Acute (2) Acute respiratory failure Status: Acute (3) Urinary tract infection Status: Acute (4) Acute renal failure Status: Acute (5) Aspiration pneumonia Status: Acute (6) Diabetes mellitus Status: Chronic (7) Ventricular arrhythmia Status: Acute (8) Hyperthyroidism Status: Acute (9) Anemia Status: Acute (10) Prophylactic measure Status: Acute Attending/Attestation - Attestation I have personally seen and examined this patient.: Yes I have fully participated in the care of the patient.: Yes I have reviewed all pertinent clinical information, including history, physical exam and plan: Yes
[2018-09-23] MEDS ORDERED: Sodium Chloride 0.9% 1,000 ML IV SCH (19:00)
[2018-09-24] MEDS: Acyclovir 400 MG in Sodium Chloride 0.9% 100 ML IV SCH ×3 (03:00→18:27)
[2018-09-24 06:18] LABS: BASO # 0.1 K/uL (0.0-0.2); BASO % 0.7 % (0.0-2.0); EOS # 0.4 K/uL (0.0-0.7); EOS % 3.6 % (0.0-4.0); HEMOGLOBIN 10.3 g/dL (11.0-16.0); LYMPH # 1.5 K/uL (1.0-4.3); LYMPH % 12.8 % (20.0-40.0); MEAN CELL VOLUME 89.6 fL (81.0-99.0); MEAN CORPUSCULAR HEMOGLOBIN 29.9 pg (27.0-31.0); MEAN CORPUSCULAR HGB CONC 33.4 g/dL (33.0-37.0); MEAN PLATELET VOLUME 8.4 fL (7.2-11.7); MONO # 0.5 K/uL (0.0-0.8); NEUT # 9.1 K/uL (1.8-7.0); NEUT % 78.9 % (50.0-75.0); NRBC % 0.1 % (0.0-2.0); RBC 3.45 Mil/uL (3.80-5.20); RED CELL DISTRIBUTION WIDTH 17.9 % (11.5-14.5); WHITE BLOOD COUNT 11.5 K/uL (4.8-10.8)
[2018-09-24 06:40] LABS: ALB/GLOB RATIO 0.8 (1.0-2.1); ALBUMIN 3.5 g/dL (3.5-5.0); ALT/SGPT 47 U/L (9-52); AST/SGOT 54 U/L (14-36); BLOOD UREA NITROGEN 30 mg/dL (7-17); GFR NON-AFRICAN AMERICAN > 60
[2018-09-24] MEDS: (Novolog) Insulin Aspart, Recombinant 100 u/ml 10 ml vial SC SCH ×4 (07:25→23:45)
[2018-09-24] MEDS: Multiple Vitamins Tab PEG SCH (09:48)
[2018-09-24] MEDS: Lactobacillus Acidophilus 500 MU Cap PEG SCH ×2 (09:48→23:33)
[2018-09-24] MEDS: Modafinil 50 MG TAB PO SCH (09:48)
[2018-09-24] MEDS: Pantoprazole 40 mg Susp UD GT SCH ×2 (09:49→23:20)
--- NOTE | 2018-09-24 12:20 | CP.PCM.PN ---
<Óscar Saldana - Last Filed: 09/24/18 16:01> Subjective - Date & Time of Evaluation Date of Evaluation: 09/24/18 Time of Evaluation: 14:16 - Subjective Subjective: PGY3 Note for Dr. Leahy; medicine This pt was seen and examined at bedside this AM; unable to respond to any questions meaningfully; has primitive reflexes (sucking/rooting) but does track you throughout the room Objective - Vital Signs/Intake and Output Vital Signs (last 24 hours): Temp Pulse Resp BP Pulse Ox 98.4 F 98 H 36 H 112/43 L 100 09/24/18 08:00 09/24/18 08:00 09/24/18 08:00 09/24/18 08:00 09/24/18 08:00 Intake and Output: 09/24/18 09/24/18 06:59 18:59 Intake Total 1330 100 Output Total 650 Balance 680 100 - Medications Medications: Current Medications Albuterol/Ipratropium (Duoneb 3 Mg/0.5 Mg (3 Ml) Ud) 3 ml INH RQ6 PRN PRN Reason: Shortness of Breath Ascorbic Acid (Vitamin C 500 Mg Tab) 1,000 mg NG DAILY [facility] Last Admin: 09/24/18 09:48 Dose: 1,000 mg Aspirin (Aspirin Chewable) 81 mg GT DAILY [facility] Last Admin: 09/24/18 09:49 Dose: 81 mg Dextrose (Dextrose 50% Inj) 0 ml IVP .STAT PRN; Protocol PRN Reason: Hypoglycemia Protocol Dextrose (Glutose 15) 0 gm PO .ONCE PRN; Protocol PRN Reason: Hypoglycemia Protocol Ergocalciferol (Drisdol 50,000 Intl Units Cap) 1 cap GT Q7D [facility] Stop: 10/06/18 19:16 Last Admin: 09/22/18 18:30 Dose: 1 cap Glucagon (Glucagen Diagnostic Kit) 0 mg IM .STAT PRN; Protocol PRN Reason: Hypoglycemia Protocol Acyclovir 400 mg/ Sodium (Chloride) 100 mls @ 100 mls/hr IV Q8H [facility]; Protocol Stop: 10/02/18 10:31 Last Admin: 09/24/18 09:49 Dose: 100 mls/hr Insulin Aspart (Novolog) 0 unit SC Q6H [facility]; Protocol Last Admin: 09/24/18 07:25 Dose: 3 units Lactobacillus Acidophilus (Bacid Acidophilus) 1 cap PEG Q12 [facility] Last Admin: 09/24/18 09:48 Dose: 1 cap Methimazole (Tapazole) 20 mg PO Q8 [facility] Last Admin: 09/24/18 07:36 Dose: 20 mg Modafinil (Provigil) 50 mg PO DAILY [facility] Last Admin: 09/24/18 09:48 Dose: 50 mg Multivitamins (Hexavitamin) 1 tab PEG DAILY [facility] Last Admin: 09/24/18 09:48 Dose: 1 tab Pantoprazole Sodium (Protonix Susp) 40 mg GT Q12H [facility] Last Admin: 09/24/18 09:49 Dose: 40 mg Tamsulosin HCl (Flomax) 0.4 mg PEG DAILY [facility] Last Admin: 09/24/18 09:48 Dose: 0.4 mg - Labs Labs: 09/24/18 06:10 09/24/18 06:10 PT 11.9 SECONDS (9.7-12.2) 09/04/18 06:22 INR 1.1 09/04/18 06:22 APTT 29 SECONDS (21-34) 09/02/18 05:48 - Constitutional Appears: Cachectic, Chronically Ill - Head Exam Head Exam: ATRAUMATIC - Eye Exam Eye Exam: absent: Conjunctival injection, EOMI Pupil Exam: Unequal. absent: PERRL - ENT Exam ENT Exam: Mucous Membranes Moist - Neck Exam Neck Exam: Full ROM - Respiratory Exam Respiratory Exam: Rales, NORMAL BREATHING PATTERN. absent: Clear to Ausculation Bilateral, Rhonchi, Wheezes - Cardiovascular Exam Cardiovascular Exam: REGULAR RHYTHM - GI/Abdominal Exam GI & Abdominal Exam: Soft, Normal Bowel Sounds. absent: Tenderness - Extremities Exam Extremities Exam: absent: Calf Tenderness - Back Exam Back Exam: NORMAL INSPECTION. absent: CVA tenderness (L), CVA tenderness (R) - Neurological Exam Neurological Exam: Awake - Skin Skin Exam: Warm Assessment and Plan - Assessment and Plan (Free Text) Assessment: 53yo F admitted originally to ICU for cardiac arrest, septic shock Septic Shock secondary to Pneumonia and Urinary Tract Infection New Pneumonia-->pseudomonas Encephalitis * Infectious Disease (Dr. Brock) on board-->help appreciated * Meropenem d/c 08/27 * Maxipime 1gm [id number] (from 08/27/18 to 09/12/18) * Trach Aspirate: Psuedomonas * s/p bronchoscopy (08/23/18) * 08/23: Bronchial Washings: pseudomonas Aeruginosa * 08/23: Fungal Culture: Prelim: negative * 08/23: Mycobacterial culture: negative * s/p chest tube 09/06/18; removed 09/15 * Pleural fluid: no growth * Recent culture: * 08/25/18 Blood culture: no growth 5 days X 2 * 08/23/18 Blood culture: no growth after 5 days X 2 * 08/27/18 Blood culture: no growth after 5 days * 08/27/18 UA and Urine Culture: no growth * Salmonella, shigella, or campylobacteria: not detected. * Trachasp: Pseudomonas Aeruginosa-->sensitive to Cipro * 09/19 Urine culture: gram positive cocci * s/p Lumbar Puncture * Opening pressure: 21; normal no evidence of ICP * CSF Culture: No growth * No Mycobact nor fungal observed * HSV 1 DNA and HSV 2: not detected * no CSF growth * pending HSV * Discussed with Dr. Brock, continue Acyclovir 700mg IV Q8H for 10 days to cover. * Discussed with Dr. Soniya Parekh, atraumatic tap. * Procalcitonin: 2.89 (08/28)-->0.33 (09/04)--->0.34 Shock Liver; Transminitis; resolving * GI has signed off * Hepatitis serology negative * Ammonia: normal * elevated INR--> vitamin K 08/24 * 08/24: off statin, benadryl, benzo, ambien, and micafungin (gave dose of 08/23) * Continue to monitor LFTs; suspected medication induced or related to low blood pressure * Gi (Dr. Murray) * discussed case with fellow 08/26/18 * Abd US shows bilateral pleural effusions, patent portal vein, no hydronephrosis, no GB stones or cholecystitis * CT Abdomen/pelvis (08/25/18): limited evaluated evaluation hepatic vein thrombosis. heterogenous attenuation of the liver. Anoxic Encephalopathy; unresolved; seems to be patients baseline * Code Blue 07/10 and 07/20 * Patient prior knowledge of 5 languages per but does not follow commands * CT head: no acute intracranial pathology. Age-related changes. no significant interval change. * suspect cognitive decline since second code blue * Brain MRI (09/08/18); no definite mass effect or suspicious extra axial collection. no evidence of acute or subacute brain infarction at this time. Borderline pattern of hydrocephalus * s/p Lumbar Puncture 09/15 * Opening pressure: 21; normal no evidence of ICP * CSF Culture: No growth * No Mycobact nor fungal observed * HSV 1 DNA and HSV 2: not detected chronic Respiratory Failure Pulmonary Edema Pseudomona Pneumonia s/p Trach * Patient underwent tracheostomy 07/24/18, s/p bronchoscopy 08/23, s/p right chest tube insertion * Patient had tolerated trach collarsthru Tuesday 08/14; however she has been on vent to trach. Fi02: 30 percent * Pulmonary (Dr. Maciel) on board-->assisting with weaning from trach on vent to trach collar * Duonebs 3ml Inh Q6H * s/p bronchoscopy (08/23/18) * Pseudomonas aerguinosa * dictated by dr maciel * 08/23: Bronchial Washings: pseudomonas Aeruginosa * 08/23: Fungal Culture: Prelim: negative * 08/23: Mycobacterial culture: prelim * s/p chest tube insertion (09/06/18) was removed 09/15 * pleural fluid: no growth * Chest physiotherapy Ventricular Tachycardia NSTEMI Apical Thrombus LLE DVT s/p IVC filter * Code Blue 07/10: SVT==>VT required amiodarone, magnesium, one shock delivered * Code Blue 07/20: vtach s/p amiodarone, fluid, calcium gluconate, required compressions and shock * S/p IVC filter 08/23/18 * Cardiology Dr Francisco on case help appreciated * No cath needed. * Medical management * No chemical anticoagulation in light of bleeding episodes (patient has dysfunction uterine bleeding required blood transfusions; Ob has been consulted earlier in the hospitalization to inpatient workup)-->recommending heparin 5000 unit subq8 (DVT ppx dose) and aspirin 81mg PO daily; likely thrombus is organized a month of anticoagulation; risk is due to bleeding against stroke * d/c Propranolol 5mg PO TID (hold SBP<100 and HR<60) * Eliquis d/c bleeding and anemia-->dvt ppx and aspirin * Echo discussed with Dr. Francisco, patient does have residual clot-->aware we cannot anticoagulate given heavy vaginal bleeding; if patient can tolerate possible aspirin * H/H stable in 10's no vaginal bleeding noted since chemical anticoagulation d/c; c.w Aspirin 81mg PO daily VRE Urinary Tract Infection (resolved) * OFF Contact isolation Diabetes-->chronic * HgBA1c: 7.8 * Hypoglycemic protocol * held Lantus 15 units subcutaneous at bedtime Q12 since 08/23/18 * Hypoglycemic 08/23/18 AM * Accuchecks Q6H * Novolog sliding scale * off Crestor 5mg POqHS secondary to LFTs Acute on Chronic Renal Failure * Nephrology (Dr. Hyde) on board--> help appreciated-->has signed off Hyperthyroidism? Low TSH, and Free T4 Thyroid Storm * Note Thyroid studies taken before amiodarone was given (please advised this is not amiodarone induced her levels were abnormal prior) * Patient does not have prior thyroid history * Endocrinology (Dr. Gayle) on board help appreciated * Thyroid U/S 07/16/18: showed heterogenous thyroid with multiple nodules bilaterally. She will need outpatient FNA Bx of the complex Left Lobe cyst (please see full report) * Methimazole 20mg PO TID * off Propranolol 5 mg PO TID due to hypotension * Monitor LFTs Anemia Likely Secondary to Chronic Diseases Dysfunctional uterine bleeding * Iron normal, TIBC low, Iron Saturation normal, Ferritin normal * Stool occult blood negative * B12 normal * Folate Normal * Transfused 1 unit PRBC 07/22/18, 2 unit of PRBC 08/13/18 1 unit on 08/17/18, 1 unit 08/23/18 * Patient has been seen by OB Hospitalist; no contraindication to anticoagulation * recommend outpatient workup for vaginal bleeding * Case discussed with welding machine operator plasma arc recommending against eliquis in light of bleeding; recommending for DVT ppx and aspirin if patient can tolerate it Vitamin D deficiency * 50,000 international units once a week (3 doses given so far) * Restart Vitamin D 50,000 IU once a week started on 08/18/18) Thrombocytopenia-->resolved * HIT/RUSTY were negative 13 mm Left Adrenal Nodule * As seen on CT Chest 07/16/[address] abdomen/pelvis * Will need outpatient follow up for cross sectional imaging for better characterization Hypernatremia (resolved) * Start free fluid washes 250ml Q6 via tube feeds * D5 Free water @ 100ml 09/23/18 LLE DVT s/p IVC filter * Eliquis 5 mg PO BID d/c 08/17 * Acute thrombosis of the left common femoral and femoral veins with severe reduction of the venous return on 07/18/18 venous doppler * Patient had completed one month on Eliquis; however she continues to have dysfunction uterine bleeding; cardiology is recommending against eliquis for thrombus given bleeding risk * repeat doppler to see if DVT has resolved by ultrasound repeat * s/p IVC filter (08/23/18) Deconditioning * Patient needs continued PT/O * reposition q2h * Respiratory attempting to wean but remains on vent. * Brain MRI (09/08/18); no definite mass effect or suspicious extra axial collection. no evidence of acute or subacute brain infarction at this time. Borderline pattern of hydrocephalus * Patient unable to get LTAC given lack of insurance Tardive Dyskinesa * D/c Trazodone due to side effect * Given Ativan 0.5mg IV X1 to reverse Prophylactic measure * Protonix 40mg GT BID * Lactobacillus 1 cap PO BID * MVI 1x/day * Vitamin C 1,000 NG 1x/day * s/p Trach and Peg * SCD on Right and contraindicated on Left due to DVT * Peg feedings * Pulmcar 40cc/hr * patient had frequent BMs on prior formula; no diarrhea; we have spoken with dietary to change it on 08/19/18 * PICC Line d/c due to coiling * Patient has midline access * Note: speak to patient in alexis to assess neurologic status-->she does follow sometimes * s/p bronchoscopy 08/23 * s/p IVC filter 08/23 * s/p LP 09/15 * s/p right chest tube insertion 09/06; removed 09/15 * patient is FULL CODE * Provigil 50mg PO daily started to promote wakefulness during the day. * Social work note (08/09/18): patient is undocumented, has not health insurance, dc planning will be at home with Disposition: Patient to continue Acyclovir to cover for encephalitis; HSV pending. Patient pending repeat UA/Urine culture. Wound care nurse to re- evaluate. Case discussed and seen with Dr. Armond Saldana PGY3 <Saira Leahy V - Last Filed: 10/24/18 16:47> Objective - Vital Signs/Intake and Output Vital Signs (last 24 hours): Temp Pulse Resp BP Pulse Ox 99.8 F H 90 13 95/54 L 100 10/24/18 13:00 10/24/18 16:00 10/24/18 13:00 10/24/18 13:00 10/24/18 13:00 Intake and Output: 10/24/18 10/24/18 06:59 18:59 Intake Total 540 Output Total 300 Balance 240 - Medications Medications: Current Medications Acetylcysteine (Acetylcysteine 20%) 4 ml INH RQ4 [facility] Last Admin: 10/24/18 16:27 Dose: 4 ml Albuterol/Ipratropium (Duoneb 3 Mg/0.5 Mg (3 Ml) Ud) 3 ml INH RQ4 [facility] Last Admin: 10/24/18 16:27 Dose: 3 ml Ascorbic Acid (Vitamin C 500 Mg Tab) 1,000 mg NG DAILY [facility] Last Admin: 10/24/18 10:42 Dose: 1,000 mg Aspirin (Aspirin Chewable) 81 mg GT DAILY [facility] Last Admin: 10/24/18 10:43 Dose: 81 mg Dextrose (Dextrose 50% Inj) 0 ml IVP .STAT PRN; Protocol PRN Reason: Hypoglycemia Protocol Dextrose (Glutose 15) 0 gm PO .ONCE PRN; Protocol PRN Reason: Hypoglycemia Protocol Furosemide (Lasix) 20 mg IVP ONCE PRN PRN Reason: PLEURAL EFFUSION Last Admin: 10/21/18 21:30 Dose: 20 mg Glucagon (Glucagen Diagnostic Kit) 0 mg IM .STAT PRN; Protocol PRN Reason: Hypoglycemia Protocol Methimazole (Tapazole) 20 mg PO Q8 [facility] Last Admin: 10/24/18 12:59 Dose: 20 mg Midodrine (Proamatine) 10 mg PO TID [facility] Last Admin: 10/24/18 12:59 Dose: 10 mg Modafinil (Provigil) 50 mg PO DAILY [facility] Last Admin: 10/24/18 10:43 Dose: 50 mg Multivitamins (Hexavitamin) 1 tab PEG DAILY [facility] Last Admin: 10/24/18 10:43 Dose: 1 tab Pantoprazole Sodium (Protonix Susp) 40 mg GT Q12H [facility] Last Admin: 10/24/18 10:43 Dose: 40 mg Tamsulosin HCl (Flomax) 0.4 mg PEG DAILY [facility] Last Admin: 10/24/18 10:43 Dose: 0.4 mg Vitamin A (Vitamin A & D Oint Ud Foilpak) 0.5 ea TOP BID [facility] Last Admin: 10/24/18 10:43 Dose: 0.5 ea - Labs Labs: 10/24/18 06:07 10/24/18 06:07 PT 13.3 SECONDS (9.7-12.2) H 10/23/18 06:05 INR 1.2 10/23/18 06:05 APTT 23 SECONDS (21-34) 10/02/18 06:10 Assessment and Plan (1) Septic shock Status: Acute (2) Acute respiratory failure Status: Acute (3) Urinary tract infection Status: Acute (4) Acute renal failure Status: Acute (5) Aspiration pneumonia Status: Acute (6) Diabetes mellitus Status: Chronic (7) Ventricular arrhythmia Status: Acute (8) Hyperthyroidism Status: Acute (9) Anemia Status: Acute (10) Prophylactic measure Status: Acute Attending/Attestation - Attestation I have personally seen and examined this patient.: Yes I have fully participated in the care of the patient.: Yes I have reviewed all pertinent clinical information, including history, physical exam and plan: Yes
[2018-09-24] MEDS: Albuterol-Ipratrop 3 mg / 0.5 (3 ml) UD INH PRN (19:43)
[2018-09-24] MEDS ORDERED: Sodium Chloride 0.9% 1,000 ML IV ONE (20:59)
[2018-09-25] MEDS: Acyclovir 400 MG in Sodium Chloride 0.9% 100 ML IV SCH ×3 (02:23→17:29)
[2018-09-25 05:46] LABS: BASO # 0.1 K/uL (0.0-0.2); BASO % 0.6 % (0.0-2.0); EOS # 0.3 K/uL (0.0-0.7); EOS % 2.8 % (0.0-4.0); HEMOGLOBIN 8.4 g/dL (11.0-16.0); LYMPH # 2.3 K/uL (1.0-4.3); LYMPH % 20.5 % (20.0-40.0); MEAN CELL VOLUME 89.8 fL (81.0-99.0); MEAN CORPUSCULAR HGB CONC 33.5 g/dL (33.0-37.0); MEAN PLATELET VOLUME 8.1 fL (7.2-11.7); MONO # 0.5 K/uL (0.0-0.8); MONO % 4.1 % (0.0-10.0); NEUT # 8.1 K/uL (1.8-7.0); RBC 2.79 Mil/uL (3.80-5.20); RED CELL DISTRIBUTION WIDTH 17.5 % (11.5-14.5); WHITE BLOOD COUNT 11.3 K/uL (4.8-10.8)
[2018-09-25 06:13] LABS: ALB/GLOB RATIO 0.8 (1.0-2.1); ALBUMIN 2.9 g/dL (3.5-5.0); ALT/SGPT 35 U/L (9-52); AST/SGOT 31 U/L (14-36); BLOOD UREA NITROGEN 31 mg/dL (7-17); CALCIUM 8.6 mg/dl (8.6-10.4); GFR NON-AFRICAN AMERICAN > 60
[2018-09-25] MEDS: (Novolog) Insulin Aspart, Recombinant 100 u/ml 10 ml vial SC SCH ×3 (06:31→17:51)
[2018-09-25] MEDS ORDERED: MethylPREDNISolone 40 mg Vial IVP STA (07:49)
[2018-09-25] MEDS: Lactobacillus Acidophilus 500 MU Cap PEG SCH ×2 (09:27→21:35)
[2018-09-25] MEDS: Pantoprazole 40 mg Susp UD GT SCH ×2 (09:27→21:37)
[2018-09-25] MEDS: Multiple Vitamins Tab PEG SCH (09:27)
[2018-09-25] MEDS: Modafinil 50 MG TAB PO SCH (10:30)
--- NOTE | 2018-09-25 11:13 | RAD ---
Date of service: 09/25/2018 HISTORY: Shortness of breath COMPARISON: Multiple serial examinations preceding the most recent study: 09/23/2018. FINDINGS: LUNGS: Stable retrocardiac infiltrate with air bronchograms. PLEURA: No significant pleural effusion identified, no pneumothorax apparent. CARDIOVASCULAR: No atherosclerotic calcification present Normal. OSSEOUS STRUCTURES: No significant abnormalities. VISUALIZED UPPER ABDOMEN: Normal. OTHER FINDINGS: Stable, satisfactory position of tracheostomy device. IMPRESSION: Stable left lower lobe/retrocardiac infiltrate.
[2018-09-25] MEDS ORDERED: Acetylcysteine 20% Inhal Soln (4ml) INH SCH (11:45)
--- NOTE | 2018-09-25 14:01 | CP.PCM.PN ---
<Elijah Weinberg - Last Filed: 09/25/18 15:40> Subjective - Date & Time of Evaluation Date of Evaluation: 09/25/18 Time of Evaluation: 14:04 - Subjective Subjective: PGY-[address] Leahy Patient seen and examined at bedside. Patient appears somewhat more aware, than previously. On exam she was not able to follow commands, although subjectively seems to have some sense of awareness. ROS unable to be obtained 2/2 patient nonverbal. Objective - Vital Signs/Intake and Output Vital Signs (last 24 hours): Temp Pulse Resp BP Pulse Ox 98.3 F 92 H 18 140/80 98 09/25/18 13:00 09/25/18 13:00 09/25/18 13:00 09/25/18 13:00 09/25/18 13:00 Intake and Output: 09/25/18 09/25/18 06:59 18:59 Intake Total 560 Output Total 0 Balance 560 - Medications Medications: Current Medications Acetylcysteine (Acetylcysteine 20%) 4 ml INH RQ4 [facility] Albuterol/Ipratropium (Duoneb 3 Mg/0.5 Mg (3 Ml) Ud) 3 ml INH RQ4 PRN PRN Reason: Shortness of Breath Ascorbic Acid (Vitamin C 500 Mg Tab) 1,000 mg NG DAILY [facility] Last Admin: 09/25/18 09:27 Dose: 1,000 mg Aspirin (Aspirin Chewable) 81 mg GT DAILY [facility] Last Admin: 09/25/18 09:27 Dose: 81 mg Dextrose (Dextrose 50% Inj) 0 ml IVP .STAT PRN; Protocol PRN Reason: Hypoglycemia Protocol Dextrose (Glutose 15) 0 gm PO .ONCE PRN; Protocol PRN Reason: Hypoglycemia Protocol Ergocalciferol (Drisdol 50,000 Intl Units Cap) 1 cap GT Q7D [facility] Stop: 10/06/18 19:16 Last Admin: 09/22/18 18:30 Dose: 1 cap Glucagon (Glucagen Diagnostic Kit) 0 mg IM .STAT PRN; Protocol PRN Reason: Hypoglycemia Protocol Acyclovir 400 mg/ Sodium (Chloride) 100 mls @ 100 mls/hr IV Q8H [facility]; Protocol Stop: 10/02/18 10:31 Last Admin: 09/25/18 10:30 Dose: 100 mls/hr Insulin Aspart (Novolog) 0 unit SC Q6H [facility]; Protocol Last Admin: 09/25/18 12:16 Dose: 3 units Lactobacillus Acidophilus (Bacid Acidophilus) 1 cap PEG Q12 [facility] Last Admin: 09/25/18 09:27 Dose: 1 cap Methimazole (Tapazole) 20 mg PO Q8 [facility] Last Admin: 09/25/18 13:10 Dose: 20 mg Modafinil (Provigil) 50 mg PO DAILY [facility] Last Admin: 09/25/18 10:30 Dose: 50 mg Multivitamins (Hexavitamin) 1 tab PEG DAILY [facility] Last Admin: 09/25/18 09:27 Dose: 1 tab Pantoprazole Sodium (Protonix Susp) 40 mg GT Q12H [facility] Last Admin: 09/25/18 09:27 Dose: 40 mg Tamsulosin HCl (Flomax) 0.4 mg PEG DAILY [facility] Last Admin: 09/25/18 09:27 Dose: 0.4 mg - Labs Labs: 09/25/18 05:35 09/25/18 05:35 PT 11.9 SECONDS (9.7-12.2) 09/04/18 06:22 INR 1.1 09/04/18 06:22 APTT 29 SECONDS (21-34) 09/02/18 05:48 - Constitutional Appears: Older Than Stated Age, Chronically Ill - Head Exam Head Exam: ATRAUMATIC, NORMOCEPHALIC - Eye Exam Eye Exam: EOMI - ENT Exam ENT Exam: Mucous Membranes Moist - Neck Exam Additional comments: trach with secretions suctioned this morning - Respiratory Exam Respiratory Exam: Clear to Ausculation Bilateral, NORMAL BREATHING PATTERN Additional comments: On vent - Cardiovascular Exam Cardiovascular Exam: RRR, +S1, +S2 - GI/Abdominal Exam GI & Abdominal Exam: Soft. absent: Tenderness - Extremities Exam Extremities Exam: absent: Pedal Edema, Tenderness - Neurological Exam Neurological Exam: Awake. absent: Alert, Oriented x3 Additional comments: Patient seemingly more aware, though she still is nonverbal and was not responding to commands on exam today - Psychiatric Exam Psychiatric exam: Flat Affect Additional comments: TD improved - Skin Skin Exam: Dry, Intact Assessment and Plan - Assessment and Plan (Free Text) Assessment: 53yo F admitted originally to ICU for cardiac arrest, septic shock Septic Shock secondary to Pneumonia and Urinary Tract Infection New Pneumonia-->pseudomonas * Infectious Disease (Dr. Brock) on board-->help appreciated * Meropenem d/c 08/27 * Maxipime 1gm [id number] (from 08/27/18 to 09/12/18) * Trach Aspirate: Psuedomonas * s/p bronchoscopy (08/23/18) * 08/23: Bronchial Washings: pseudomonas Aeruginosa * 08/23: Fungal Culture: Prelim: negative * 08/23: Mycobacterial culture: negative * s/p chest tube 09/06/18; removed 09/15 * Pleural fluid: no growth * Recent culture: * 08/25/18 Blood culture: no growth 5 days X 2 * 08/23/18 Blood culture: no growth after 5 days X 2 * 08/27/18 Blood culture: no growth after 5 days * 08/27/18 UA and Urine Culture: no growth * Salmonella, shigella, or campylobacteria: not detected. * Trachasp: Pseudomonas Aeruginosa-->sensitive to Cipro * 09/19 Urine culture: gram positive cocci * s/p Lumbar Puncture * Opening pressure: 21; normal no evidence of ICP * CSF Culture: No growth * No Mycobact nor fungal observed * HSV 1 DNA and HSV 2: not detected * no CSF growth * pending HSV * Discussed with Dr. Brock, continue Acyclovir 700mg IV Q8H for 10 days to cover. * Discussed with Dr. Soniya Parekh, atraumatic tap. * Procalcitonin: 2.89 (08/28)-->0.33 (09/04)--->0.34 Shock Liver; Transminitis; resolving * GI has signed off * Hepatitis serology negative * Ammonia: normal * elevated INR--> vitamin K 08/24 * 08/24: off statin, benadryl, benzo, ambien, and micafungin (gave dose of 08/23) * Continue to monitor LFTs; suspected medication induced or related to low blood pressure * Gi (Dr. Murray) * discussed case with fellow 08/26/18 * Abd US shows bilateral pleural effusions, patent portal vein, no hydronephrosis, no GB stones or cholecystitis * CT Abdomen/pelvis (08/25/18): limited evaluated evaluation hepatic vein thrombosis. heterogenous attenuation of the liver. Anoxic Encephalopathy; unresolved; seems to be patients baseline * Code Blue 07/10 and 07/20 * Patient prior knowledge of 5 languages per but does not follow commands * CT head: no acute intracranial pathology. Age-related changes. no significant interval change. * suspect cognitive decline since second code blue * Brain MRI (09/08/18); no definite mass effect or suspicious extra axial collection. no evidence of acute or subacute brain infarction at this time. Borderline pattern of hydrocephalus * s/p Lumbar Puncture 09/15 * Opening pressure: 21; normal no evidence of ICP * CSF Culture: No growth * No Mycobact nor fungal observed * HSV 1 DNA and HSV 2: not detected chronic Respiratory Failure Pulmonary Edema Pseudomona Pneumonia s/p Trach * Patient having some respiratory distress this morning and ample secretions removed from trach via suction. Stat duoneb treatment given. Patient has Q4 dounebs and mucomist ordered. * Patient underwent tracheostomy 07/24/18, s/p bronchoscopy 08/23, s/p right chest tube insertion * Patient had tolerated trach collarsthru Tuesday 08/14; however she has been on vent to trach. Fi02: 30 percent * Pulmonary (Dr. Lozada) on board-->assisting with weaning from trach on vent to trach collar * Duonebs 3ml Inh Q6H * s/p bronchoscopy (08/23/18) * Pseudomonas aerguinosa * dictated by dr lozada * 08/23: Bronchial Washings: pseudomonas Aeruginosa * 08/23: Fungal Culture: Prelim: negative * 08/23: Mycobacterial culture: prelim * s/p chest tube insertion (09/06/18) was removed 09/15 * pleural fluid: no growth * Chest physiotherapy Ventricular Tachycardia NSTEMI Apical Thrombus LLE DVT s/p IVC filter * ASA 81 daily restarted * Code Blue 07/10: SVT==>VT required amiodarone, magnesium, one shock delivered * Code Blue 07/20: vtach s/p amiodarone, fluid, calcium gluconate, required compressions and shock * S/p IVC filter 08/23/18 * Cardiology Dr Francisco on case help appreciated * No cath needed. * Medical management * No chemical anticoagulation in light of bleeding episodes (patient has dysfunction uterine bleeding required blood transfusions; Ob has been consulted earlier in the hospitalization to inpatient workup)-->recommending heparin 5000 unit subq8 (DVT ppx dose) and aspirin 81mg PO daily; likely thrombus is organized a month of anticoagulation; risk is due to bleeding against stroke * d/c Propranolol 5mg PO TID (hold SBP<100 and HR<60) * Eliquis d/c bleeding and anemia-->dvt ppx and aspirin * Echo discussed with Dr. Francisco, patient does have residual clot-->aware we cannot anticoagulate given heavy vaginal bleeding * H/H stable in 10's no vaginal bleeding noted since chemical anticoagulation d/c; c.w Aspirin 81mg PO daily [facility] Urinary Tract Infection (resolved) * OFF Contact isolation Diabetes-->chronic * HgBA1c: 7.8 * Hypoglycemic protocol * held Lantus 15 units subcutaneous at bedtime Q12 since 08/23/18 * Hypoglycemic 08/23/18 AM * Accuchecks Q6H * Novolog sliding scale * off Crestor 5mg POqHS secondary to LFTs Acute on Chronic Renal Failure * Nephrology (Dr. Hyde) on board--> help appreciated-->has signed off Hyperthyroidism? Low TSH, and Free T4 Thyroid Storm * Note Thyroid studies taken before amiodarone was given (please advised this is not amiodarone induced her levels were abnormal prior) * Patient does not have prior thyroid history * Endocrinology (Dr. Gayle) on board help appreciated * Thyroid U/S 07/16/18: showed heterogenous thyroid with multiple nodules bilaterally. She will need outpatient FNA Bx of the complex Left Lobe cyst (please see full report) * Methimazole 20mg PO TID * off Propranolol 5 mg PO TID due to hypotension * Monitor LFTs Anemia Likely Secondary to Chronic Diseases Dysfunctional uterine bleeding * Iron normal, TIBC low, Iron Saturation normal, Ferritin normal * Stool occult blood negative * B12 normal * Folate Normal * Transfused 1 unit PRBC 07/22/18, 2 unit of PRBC 08/13/18 1 unit on 08/17/18, 1 unit 08/23/18 * Patient has been seen by OB Hospitalist; no contraindication to ant icoagulation * recommend outpatient workup for vaginal bleeding * Case discussed with milk pasteurizer recommending against eliquis in light of bleeding; recommending for DVT ppx and aspirin if patient can tolerate it Vitamin D deficiency * 50,000 international units once a week (3 doses given so far) * Restart Vitamin D 50,000 IU once a week started on 08/18/18) Thrombocytopenia-->resolved * HIT/RUSTY were negative 13 mm Left Adrenal Nodule * As seen on CT Chest 07/16/[address] abdomen/pelvis * Will need outpatient follow up for cross sectional imaging for better characterization Hypernatremia (resolved) * Start free fluid washes 250ml Q6 via tube feeds * D5 Free water @ 100ml 09/23/18 Deconditioning * Patient needs continued PT/O * reposition q2h * Respiratory attempting to wean but remains on vent. * Brain MRI (09/08/18); no definite mass effect or suspicious extra axial collection. no evidence of acute or subacute brain infarction at this time. Borderline pattern of hydrocephalus * Patient unable to get LTAC given lack of insurance [employer] * Trazodone discontinued, EPS seem to have improved * Given Ativan 0.5mg IV X1 09/24 to reverse Prophylactic measure * Protonix 40mg GT BID * Lactobacillus 1 cap PO BID * MVI 1x/day * Vitamin C 1,000 NG 1x/day * s/p Trach and Peg * SCD on Right and contraindicated on Left due to DVT * Peg feedings * Pulmcar 40cc/hr * patient had frequent BMs on prior formula; no diarrhea; we have spoken with dietary to change it on 08/19/18 * PICC Line d/c due to coiling * Patient has midline access * Note: speak to patient in a[place] to assess neurologic status-->she does follow sometimes * s/p bronchoscopy 08/23 * s/p IVC filter 08/23 * s/p LP 09/15 * s/p right chest tube insertion 09/06; removed 09/15 * patient is FULL CODE * Provigil 50mg PO daily started to promote wakefulness during the day. * Social work note (08/09/18): patient is undocumented, has not health insurance, dc planning will be at home with Disposition: Patient to continue Acyclovir to cover for encephalitis; HSV negative, but patient to finish antiviral courser for coverage. Continue aggressive PT/OT Case discussed and seen with Dr. Armond Weinberg, PGY-1 <Saira Leahy V - Last Filed: 10/24/18 16:48> Objective - Vital Signs/Intake and Output Vital Signs (last 24 hours): Temp Pulse Resp BP Pulse Ox 99.8 F H 90 13 95/54 L 100 10/24/18 13:00 10/24/18 16:00 10/24/18 13:00 10/24/18 13:00 10/24/18 13:00 Intake and Output: 10/24/18 10/24/18 06:59 18:59 Intake Total 540 Output Total 300 Balance 240 - Medications Medications: Current Medications Acetylcysteine (Acetylcysteine 20%) 4 ml INH RQ4 [facility] Last Admin: 10/24/18 16:27 Dose: 4 ml Albuterol/Ipratropium (Duoneb 3 Mg/0.5 Mg (3 Ml) Ud) 3 ml INH RQ4 [facility] Last Admin: 10/24/18 16:27 Dose: 3 ml Ascorbic Acid (Vitamin C 500 Mg Tab) 1,000 mg NG DAILY [facility] Last Admin: 10/24/18 10:42 Dose: 1,000 mg Aspirin (Aspirin Chewable) 81 mg GT DAILY [facility] Last Admin: 10/24/18 10:43 Dose: 81 mg Dextrose (Dextrose 50% Inj) 0 ml IVP .STAT PRN; Protocol PRN Reason: Hypoglycemia Protocol Dextrose (Glutose 15) 0 gm PO .ONCE PRN; Protocol PRN Reason: Hypoglycemia Protocol Furosemide (Lasix) 20 mg IVP ONCE PRN PRN Reason: PLEURAL EFFUSION Last Admin: 10/21/18 21:30 Dose: 20 mg Glucagon (Glucagen Diagnostic Kit) 0 mg IM .STAT PRN; Protocol PRN Reason: Hypoglycemia Protocol Methimazole (Tapazole) 20 mg PO Q8 [facility] Last Admin: 10/24/18 12:59 Dose: 20 mg Midodrine (Proamatine) 10 mg PO TID [facility] Last Admin: 10/24/18 12:59 Dose: 10 mg Modafinil (Provigil) 50 mg PO DAILY [facility] Last Admin: 10/24/18 10:43 Dose: 50 mg Multivitamins (Hexavitamin) 1 tab PEG DAILY [facility] Last Admin: 10/24/18 10:43 Dose: 1 tab Pantoprazole Sodium (Protonix Susp) 40 mg GT Q12H [facility] Last Admin: 10/24/18 10:43 Dose: 40 mg Tamsulosin HCl (Flomax) 0.4 mg PEG DAILY [facility] Last Admin: 10/24/18 10:43 Dose: 0.4 mg Vitamin A (Vitamin A & D Oint Ud Foilpak) 0.5 ea TOP BID [facility] Last Admin: 10/24/18 10:43 Dose: 0.5 ea - Labs Labs: 10/24/18 06:07 10/24/18 06:07 PT 13.3 SECONDS (9.7-12.2) H 10/23/18 06:05 INR 1.2 10/23/18 06:05 APTT 23 SECONDS (21-34) 10/02/18 06:10 Assessment and Plan (1) Septic shock Status: Acute (2) Acute respiratory failure Status: Acute (3) Urinary tract infection Status: Acute (4) Acute renal failure Status: Acute (5) Aspiration pneumonia Status: Acute (6) Diabetes mellitus Status: Chronic (7) Ventricular arrhythmia Status: Acute (8) Hyperthyroidism Status: Acute (9) Anemia Status: Acute (10) Prophylactic measure Status: Acute Attending/Attestation - Attestation I have personally seen and examined this patient.: Yes I have fully participated in the care of the patient.: Yes I have reviewed all pertinent clinical information, including history, physical exam and plan: Yes
[2018-09-25] MEDS: Albuterol-Ipratrop 3 mg / 0.5 (3 ml) UD INH PRN ×4 (14:10→19:50)
[2018-09-25] MEDS: Acetylcysteine 20% Inhal Soln (4ml) INH SCH ×3 (14:10→19:50)
[2018-09-25] MEDS: Vitamins A & D Oint UD Foilpak TOP SCH ×2 (14:35→17:10)
[2018-09-26] MEDS: Acetylcysteine 20% Inhal Soln (4ml) INH SCH ×6 (00:25→19:51)
[2018-09-26] MEDS: Albuterol-Ipratrop 3 mg / 0.5 (3 ml) UD INH PRN ×6 (00:25→19:51)
[2018-09-26] MEDS: Acyclovir 400 MG in Sodium Chloride 0.9% 100 ML IV SCH ×3 (02:30→18:24)
[2018-09-26] MEDS: (Novolog) Insulin Aspart, Recombinant 100 u/ml 10 ml vial SC SCH ×4 (06:00→18:21)
[2018-09-26 06:21] LABS: BASO # 0.1 K/uL (0.0-0.2); BASO % 0.5 % (0.0-2.0); EOS % 0.1 % (0.0-4.0); HEMOGLOBIN 9.4 g/dL (11.0-16.0); LYMPH # 1.9 K/uL (1.0-4.3); LYMPH % 6.9 % (20.0-40.0); MEAN CORPUSCULAR HEMOGLOBIN 28.7 pg (27.0-31.0); MEAN CORPUSCULAR HGB CONC 31.6 g/dL (33.0-37.0); MEAN PLATELET VOLUME 8.6 fL (7.2-11.7); MONO # 1.1 K/uL (0.0-0.8); MONO % 4.2 % (0.0-10.0); NEUT # 23.9 K/uL (1.8-7.0); NEUT % 88.3 % (50.0-75.0); PLATELET COUNT 483 K/uL (130-400); RBC 3.26 Mil/uL (3.80-5.20); RED CELL DISTRIBUTION WIDTH 18.2 % (11.5-14.5); WHITE BLOOD COUNT 27.1 K/uL (4.8-10.8)
[2018-09-26 06:42] LABS: ALB/GLOB RATIO 0.8 (1.0-2.1); ALBUMIN 3.3 g/dL (3.5-5.0); ALT/SGPT 35 U/L (9-52); AST/SGOT 34 U/L (14-36); BLOOD UREA NITROGEN 37 mg/dL (7-17); CALCIUM 8.9 mg/dl (8.6-10.4); GFR NON-AFRICAN AMERICAN > 60
[2018-09-26 08:29] LABS: BANDS 4 % (0-2); LYMPHOCYTE 6 % (20-40); MONOCYTE 7 % (0-10); NEUTROPHIL 83 % (50-75); PLATELET ESTIMATE INCREASED (NORMAL); TOTAL CELLS COUNTED 100
[2018-09-26 08:30] LABS: ANISOCYTOSIS MODERATE; HYPOCHROMIC SLIGHT
[2018-09-26 08:31] LABS: POLYCHROMIC SLIGHT
[2018-09-26 08:33] LABS: TOXIC GRANULATION PRESENT
[2018-09-26 08:34] LABS: LARGE PLATELETS PRESENT
[2018-09-26] MEDS: Modafinil 50 MG TAB PO SCH (09:43)
[2018-09-26] MEDS: Pantoprazole 40 mg Susp UD GT SCH ×2 (09:43→22:00)
[2018-09-26] MEDS: Multiple Vitamins Tab PEG SCH (09:43)
[2018-09-26] MEDS: Vitamins A & D Oint UD Foilpak TOP SCH ×2 (09:44→18:28)
[2018-09-26] MEDS: Lactobacillus Acidophilus 500 MU Cap PEG SCH ×2 (11:21→22:01)
--- NOTE | 2018-09-26 12:39 | CP.PCM.PN ---
<Elijah Weinberg - Last Filed: 09/26/18 18:14> Subjective - Date & Time of Evaluation Date of Evaluation: 09/26/18 Time of Evaluation: 12:41 - Subjective Subjective: PGY-[address] Leahy Patient seen and examined in ICU. No acute events overnight. Clinically no significant changes in patient status. She remains nonverbal and not following commands. Remains on vent. ROS deferred 2/2 nonverbal. Objective - Vital Signs/Intake and Output Vital Signs (last 24 hours): Temp Pulse Resp BP Pulse Ox 97.7 F 91 H 23 106/62 97 09/26/18 08:10 09/26/18 04:00 09/26/18 08:10 09/26/18 08:10 09/26/18 04:00 Intake and Output: 09/26/18 09/26/18 06:59 18:59 Intake Total 580 Balance 580 - Medications Medications: Current Medications Acetylcysteine (Acetylcysteine 20%) 4 ml INH RQ4 [facility] Last Admin: 09/26/18 07:47 Dose: 4 ml Albuterol/Ipratropium (Duoneb 3 Mg/0.5 Mg (3 Ml) Ud) 3 ml INH RQ4 PRN PRN Reason: Shortness of Breath Last Admin: 09/26/18 07:47 Dose: 3 ml Ascorbic Acid (Vitamin C 500 Mg Tab) 1,000 mg NG DAILY [facility] Last Admin: 09/26/18 09:43 Dose: 1,000 mg Aspirin (Aspirin Chewable) 81 mg GT DAILY [facility] Last Admin: 09/26/18 09:43 Dose: 81 mg Dextrose (Dextrose 50% Inj) 0 ml IVP .STAT PRN; Protocol PRN Reason: Hypoglycemia Protocol Dextrose (Glutose 15) 0 gm PO .ONCE PRN; Protocol PRN Reason: Hypoglycemia Protocol Ergocalciferol (Drisdol 50,000 Intl Units Cap) 1 cap GT Q7D [facility] Stop: 10/06/18 19:16 Last Admin: 09/22/18 18:30 Dose: 1 cap Glucagon (Glucagen Diagnostic Kit) 0 mg IM .STAT PRN; Protocol PRN Reason: Hypoglycemia Protocol Acyclovir 400 mg/ Sodium (Chloride) 100 mls @ 100 mls/hr IV Q8H [facility]; Protocol Stop: 10/02/18 10:31 Last Admin: 09/26/18 09:47 Dose: 100 mls/hr Insulin Aspart (Novolog) 0 unit SC Q6H [facility]; Protocol Last Admin: 09/26/18 11:21 Dose: 4 units Lactobacillus Acidophilus (Bacid Acidophilus) 1 cap PEG Q12 [facility] Last Admin: 09/26/18 11:21 Dose: 1 cap Methimazole (Tapazole) 20 mg PO Q8 [facility] Last Admin: 09/26/18 06:59 Dose: 20 mg Modafinil (Provigil) 50 mg PO DAILY [facility] Last Admin: 09/26/18 09:43 Dose: 50 mg Multivitamins (Hexavitamin) 1 tab PEG DAILY [facility] Last Admin: 09/26/18 09:43 Dose: 1 tab Pantoprazole Sodium (Protonix Susp) 40 mg GT Q12H [facility] Last Admin: 09/26/18 09:43 Dose: 40 mg Tamsulosin HCl (Flomax) 0.4 mg PEG DAILY [facility] Last Admin: 09/26/18 09:43 Dose: 0.4 mg Vitamin A (Vitamin A & D Oint Ud Foilpak) 0.5 ea TOP BID [facility] Last Admin: 09/26/18 09:44 Dose: 0.5 ea - Labs Labs: 09/26/18 06:17 09/26/18 06:17 PT 11.9 SECONDS (9.7-12.2) 09/04/18 06:22 INR 1.1 09/04/18 06:22 APTT 29 SECONDS (21-34) 09/02/18 05:48 - Constitutional Appears: No Acute Distress - Head Exam Head Exam: ATRAUMATIC, NORMOCEPHALIC - Eye Exam Eye Exam: EOMI - ENT Exam ENT Exam: Mucous Membranes Moist - Neck Exam Additional comments: Trach in place - Respiratory Exam Respiratory Exam: Clear to Ausculation Bilateral. absent: Rhonchi, Wheezes Additional comments: On vent - Cardiovascular Exam Cardiovascular Exam: REGULAR RHYTHM, +S1, +S2 - GI/Abdominal Exam GI & Abdominal Exam: Soft, Normal Bowel Sounds. absent: Tenderness - Extremities Exam Extremities Exam: absent: Pedal Edema - Neurological Exam Neurological Exam: Awake. absent: Oriented x3 Additional comments: Nonverbal today and not following commands - Psychiatric Exam Additional comments: EPS improving - Skin Skin Exam: Dry, Intact Assessment and Plan - Assessment and Plan (Free Text) Assessment: 53yo F admitted originally to ICU for cardiac arrest, septic shock Plan: Septic Shock secondary to Pneumonia and Urinary Tract Infection New Pneumonia-->pseudomonas * Large increase in WBC today likely 2/2 Solumedrol which was given one time STAT * Infectious Disease (Dr. Brock) on board-->help appreciated * Meropenem d/c 08/27 * Maxipime 1gm [id number] (from 08/27/18 to 09/12/18) * Trach Aspirate: Psuedomonas * s/p bronchoscopy (08/23/18) * 08/23: Bronchial Washings: pseudomonas Aeruginosa * 08/23: Fungal Culture: Prelim: negative * 08/23: Mycobacterial culture: negative * s/p chest tube 09/06/18; removed 09/15 * Pleural fluid: no growth * Recent culture: * 08/25/18 Blood culture: no growth 5 days X 2 * 08/23/18 Blood culture: no growth after 5 days X 2 * 08/27/18 Blood culture: no growth after 5 days * 08/27/18 UA and Urine Culture: no growth * Salmonella, shigella, or campylobacteria: not detected. * Trachasp: Pseudomonas Aeruginosa-->sensitive to Cipro * 09/19 Urine culture: gram positive cocci * s/p Lumbar Puncture * Opening pressure: 21; normal no evidence of ICP * CSF Culture: No growth * No Mycobact nor fungal observed * HSV 1 DNA and HSV 2: not detected * no CSF growth * Discussed with Dr. Soniya Parekh, atraumatic tap. * Discussed with Dr. Brock, continue Acyclovir 700mg IV Q8H for 10 days to cover. Finish on 10/02. * Procalcitonin: 2.89 (08/28)-->0.33 (09/04)--->0.34 Shock Liver; Transminitis; resolving * GI has signed off * Hepatitis serology negative * Ammonia: normal * elevated INR--> vitamin K 08/24 * 08/24: off statin, benadryl, benzo, ambien, and micafungin (gave dose of 08/04 1) * Continue to monitor LFTs; suspected medication induced or related to low blood pressure * Gi (Dr. Murray) * discussed case with fellow 08/26/18 * Abd US shows bilateral pleural effusions, patent portal vein, no hydronephrosis, no GB stones or cholecystitis * CT Abdomen/pelvis (08/25/18): limited evaluated evaluation hepatic vein thrombosis. heterogenous attenuation of the liver. Anoxic Encephalopathy; unresolved; seems to be patients baseline * Code Blue 07/10 and 07/20 * Patient prior knowledge of 5 languages per but does not follow commands * CT head: no acute intracranial pathology. Age-related changes. no significant interval change. * suspect cognitive decline since second code blue * Brain MRI (09/08/18); no definite mass effect or suspicious extra axial collection. no evidence of acute or subacute brain infarction at this time. Borderline pattern of hydrocephalus * s/p Lumbar Puncture 09/15 * Opening pressure: 21; normal no evidence of ICP * CSF Culture: No growth * No Mycobact nor fungal observed * HSV 1 DNA and HSV 2: not detected chronic Respiratory Failure Pulmonary Edema Pseudomona Pneumonia s/p Trach * Patient having some respiratory distress this morning and ample secretions removed from trach via suction. Stat duoneb treatment given. Patient has Q4 dounebs and mucomist ordered. * Patient underwent tracheostomy 07/24/18, s/p bronchoscopy 08/23, s/p right chest tube insertion * Patient had tolerated trach collars thru Tuesday 08/14; however she has been on vent to trach. Fi02: 30 percent * Pulmonary (Dr. Lozada) on board-->assisting with weaning from trach on vent to trach collar * Duonebs 3ml Inh Q6H * s/p bronchoscopy (08/23/18) * Pseudomonas aerguinosa * dictated by dr lozada * 08/23: Bronchial Washings: pseudomonas Aeruginosa * 08/23: Fungal Culture: Prelim: negative * 08/23: Mycobacterial culture: prelim * s/p chest tube insertion (09/06/18) was removed 09/15 * pleural fluid: no growth * Chest physiotherapy Ventricular Tachycardia NSTEMI Apical Thrombus LLE DVT s/p IVC filter * ASA 81 daily restarted * Code Blue 07/10: SVT==>VT required amiodarone, magnesium, one shock delivered * Code Blue 07/20: vtach s/p amiodarone, fluid, calcium gluconate, required compressions and shock * S/p IVC filter 08/23/18 * Cardiology Dr Francisco on case help appreciated * No cath needed. * Medical management * No chemical anticoagulation in light of bleeding episodes (patient has dysfunction uterine bleeding required blood transfusions; Ob has been consulted earlier in the hospitalization to inpatient workup)-->recommending heparin 5000 unit subq8 (DVT ppx dose) and aspirin 81mg PO daily; likely thrombus is organized a month of anticoagulation; risk is due to bleeding against stroke * d/c Propranolol 5mg PO TID (hold SBP<100 and HR<60) * Eliquis d/c bleeding and anemia-->dvt ppx and aspirin * Echo discussed with Dr. Francisco, patient does have residual clot-->aware we cannot anticoagulate given heavy vaginal bleeding * H/H stable in 10's no vaginal bleeding noted since chemical anticoagulation d/c; c.w Aspirin 81mg PO daily [facility] Urinary Tract Infection (resolved) * OFF Contact isolation Diabetes-->chronic * HgBA1c: 7.8 * Hypoglycemic protocol * held Lantus 15 units subcutaneous at bedtime Q12 since 08/23/18 * Hypoglycemic 08/23/18 AM * Accuchecks Q6H * Novolog sliding scale * off Crestor 5mg POqHS secondary to LFTs Acute on Chronic Renal Failure * Nephrology (Dr. Hyde) on board--> help appreciated-->has signed off Hyperthyroidism? Low TSH, and Free T4 Thyroid Storm * Note Thyroid studies taken before amiodarone was given (please advised this is not amiodarone induced her levels were abnormal prior) * Patient does not have prior thyroid history * Endocrinology (Dr. Gayle) on board help appreciated * Thyroid U/S 07/16/18: showed heterogenous thyroid with multiple nodules bilaterally. She will need outpatient FNA Bx of the complex Left Lobe cyst (please see full report) * Methimazole 20mg PO TID * off Propranolol 5 mg PO TID due to hypotension * Monitor LFTs Anemia Likely Secondary to Chronic Diseases Dysfunctional uterine bleeding * Iron normal, TIBC low, Iron Saturation normal, Ferritin normal * Stool occult blood negative * B12 normal * Folate Normal * Transfused 1 unit PRBC 07/22/18, 2 unit of PRBC 08/13/18 1 unit on 08/17/18, 1 unit 08/23/18 * Patient has been seen by OB Hospitalist; no contraindication to anticoagulation * recommend outpatient workup for vaginal bleeding * Case discussed with outcomes specialist recommending against eliquis in light of bleeding; recommending for DVT ppx and aspirin if patient can tolerate it Vitamin D deficiency * 50,000 international units once a week (3 doses given so far) * Restart Vitamin D 50,000 IU once a week started on 08/18/18) Thrombocytopenia-->resolved * HIT/RUSTY were negative 13 mm Left Adrenal Nodule * As seen on CT Chest 07/16/[address] abdomen/pelvis * Will need outpatient follow up for cross sectional imaging for better characterization Hypernatremia (resolved) * Start free fluid washes 250ml Q6 via tube feeds * D5 Free water @ 100ml 09/23/18 Deconditioning * Patient needs continued PT/O * reposition q2h * Respiratory attempting to wean but remains on vent. * Brain MRI (09/08/18); no definite mass effect or suspicious extra axial collection. no evidence of acute or subacute brain infarction at this time. Borderline pattern of hydrocephalus * Patient unable to get LTAC given lack of insurance T[employer] D[employer]a * Trazodone discontinued, EPS seem to have improved * Given Ativan 0.5mg IV X1 09/24 to reverse Prophylactic measure * Protonix 40mg GT BID * Lactobacillus 1 cap PO BID * MVI 1x/day * Vitamin C 1,000 NG 1x/day * s/p Trach and Peg * SCD on Right and contraindicated on Left due to DVT * Peg feedings * Pulmcar 40cc/hr * patient had frequent BMs on prior formula; no diarrhea; we have spoken with dietary to change it on 08/19/18 * PICC Line d/c due to coiling * Patient has midline access * Note: speak to patient in alexis to assess neurologic status-->she does follow sometimes * s/p bronchoscopy 08/23 * s/p IVC filter 08/23 * s/p LP 09/15 * s/p right chest tube insertion 09/06; removed 09/15 * patient is FULL CODE * Provigil 50mg PO daily started to promote wakefulness during the day. * Social work note (08/09/18): patient is undocumented, has not health insurance, dc planning will be at home with Disposition: Patient to continue Acyclovir to cover for encephalitis; HSV negative, but patient to finish antiviral courser for coverage. Continue aggressive PT/OT Case discussed and seen with Dr. Armond Weinberg, PGY-1 <Saira Leahy V - Last Filed: 10/24/18 16:48> Objective - Vital Signs/Intake and Output Vital Signs (last 24 hours): Temp Pulse Resp BP Pulse Ox 99.8 F H 90 13 95/54 L 100 10/24/18 13:00 10/24/18 16:00 10/24/18 13:00 10/24/18 13:00 10/24/18 13:00 Intake and Output: 10/24/18 10/24/18 06:59 18:59 Intake Total 540 Output Total 300 Balance 240 - Medications Medications: Current Medications Acetylcysteine (Acetylcysteine 20%) 4 ml INH RQ4 [facility] Last Admin: 10/24/18 16:27 Dose: 4 ml Albuterol/Ipratropium (Duoneb 3 Mg/0.5 Mg (3 Ml) Ud) 3 ml INH RQ4 [facility] Last Admin: 10/24/18 16:27 Dose: 3 ml Ascorbic Acid (Vitamin C 500 Mg Tab) 1,000 mg NG DAILY [facility] Last Admin: 10/24/18 10:42 Dose: 1,000 mg Aspirin (Aspirin Chewable) 81 mg GT DAILY [facility] Last Admin: 10/24/18 10:43 Dose: 81 mg Dextrose (Dextrose 50% Inj) 0 ml IVP .STAT PRN; Protocol PRN Reason: Hypoglycemia Protocol Dextrose (Glutose 15) 0 gm PO .ONCE PRN; Protocol PRN Reason: Hypoglycemia Protocol Furosemide (Lasix) 20 mg IVP ONCE PRN PRN Reason: PLEURAL EFFUSION Last Admin: 10/21/18 21:30 Dose: 20 mg Glucagon (Glucagen Diagnostic Kit) 0 mg IM .STAT PRN; Protocol PRN Reason: Hypoglycemia Protocol Methimazole (Tapazole) 20 mg PO Q8 [facility] Last Admin: 10/24/18 12:59 Dose: 20 mg Midodrine (Proamatine) 10 mg PO TID [facility] Last Admin: 10/24/18 12:59 Dose: 10 mg Modafinil (Provigil) 50 mg PO DAILY [facility] Last Admin: 10/24/18 10:43 Dose: 50 mg Multivitamins (Hexavitamin) 1 tab PEG DAILY [facility] Last Admin: 10/24/18 10:43 Dose: 1 tab Pantoprazole Sodium (Protonix Susp) 40 mg GT Q12H [facility] Last Admin: 10/24/18 10:43 Dose: 40 mg Tamsulosin HCl (Flomax) 0.4 mg PEG DAILY [facility] Last Admin: 10/24/18 10:43 Dose: 0.4 mg Vitamin A (Vitamin A & D Oint Ud Foilpak) 0.5 ea TOP BID [facility] Last Admin: 10/24/18 10:43 Dose: 0.5 ea - Labs Labs: 10/24/18 06:07 10/24/18 06:07 PT 13.3 SECONDS (9.7-12.2) H 10/23/18 06:05 INR 1.2 10/23/18 06:05 APTT 23 SECONDS (21-34) 10/02/18 06:10 Assessment and Plan (1) Septic shock Status: Acute (2) Acute respiratory failure Status: Acute (3) Urinary tract infection Status: Acute (4) Acute renal failure Status: Acute (5) Aspiration pneumonia Status: Acute (6) Diabetes mellitus Status: Chronic (7) Ventricular arrhythmia Status: Acute (8) Hyperthyroidism Status: Acute (9) Anemia Status: Acute (10) Prophylactic measure Status: Acute Attending/Attestation - Attestation I have personally seen and examined this patient.: Yes I have fully participated in the care of the patient.: Yes I have reviewed all pertinent clinical information, including history, physical exam and plan: Yes
[2018-09-27] MEDS: Acetylcysteine 20% Inhal Soln (4ml) INH SCH ×7 (01:00→23:39)
[2018-09-27] MEDS: Albuterol-Ipratrop 3 mg / 0.5 (3 ml) UD INH PRN ×5 (01:00→23:39)
[2018-09-27] MEDS: Acyclovir 400 MG in Sodium Chloride 0.9% 100 ML IV SCH ×3 (03:00→17:37)
[2018-09-27 06:31] LABS: BASO # 0.1 K/uL (0.0-0.2); BASO % 0.5 % (0.0-2.0); EOS # 0.1 K/uL (0.0-0.7); EOS % 0.4 % (0.0-4.0); HEMOGLOBIN 8.1 g/dL (11.0-16.0); LYMPH # 1.5 K/uL (1.0-4.3); LYMPH % 13.1 % (20.0-40.0); MEAN CELL VOLUME 89.7 fL (81.0-99.0); MEAN CORPUSCULAR HGB CONC 33.5 g/dL (33.0-37.0); MEAN PLATELET VOLUME 8.4 fL (7.2-11.7); MONO # 0.4 K/uL (0.0-0.8); MONO % 3.4 % (0.0-10.0); NEUT # 9.6 K/uL (1.8-7.0); NEUT % 82.6 % (50.0-75.0); NRBC % 0.1 % (0.0-2.0); RBC 2.71 Mil/uL (3.80-5.20); RED CELL DISTRIBUTION WIDTH 17.9 % (11.5-14.5); WHITE BLOOD COUNT 11.6 K/uL (4.8-10.8)
[2018-09-27] MEDS: (Novolog) Insulin Aspart, Recombinant 100 u/ml 10 ml vial SC SCH ×4 (06:37→17:29)
[2018-09-27 06:45] LABS: ALB/GLOB RATIO 0.9 (1.0-2.1); ALBUMIN 2.8 g/dL (3.5-5.0); ALT/SGPT 32 U/L (9-52); AST/SGOT 27 U/L (14-36); BLOOD UREA NITROGEN 39 mg/dL (7-17); CALCIUM 8.6 mg/dl (8.6-10.4); GFR NON-AFRICAN AMERICAN 58
[2018-09-27] MEDS: Pantoprazole 40 mg Susp UD GT SCH ×2 (09:43→21:45)
[2018-09-27] MEDS: Modafinil 50 MG TAB PO SCH (09:43)
[2018-09-27] MEDS: Vitamins A & D Oint UD Foilpak TOP SCH ×2 (09:43→17:30)
[2018-09-27] MEDS: Lactobacillus Acidophilus 500 MU Cap PEG SCH ×2 (09:43→21:45)
[2018-09-27] MEDS: Multiple Vitamins Tab PEG SCH (09:44)
--- NOTE | 2018-09-27 11:06 | CP.PCM.PN ---
<Elijah Weinberg - Last Filed: 09/27/18 16:10> Subjective - Date & Time of Evaluation Date of Evaluation: 09/27/18 Time of Evaluation: 11:07 - Subjective Subjective: PGY-[address] Merry Nesbitt Patient seen and examined in ICU. No events overnight. Patient without any significant changes. Remains on vent. Remains nonverbal, unable to follow commands. ROS unable to be obtained 2/2 patient nonverbal. Objective - Vital Signs/Intake and Output Vital Signs (last 24 hours): Temp Pulse Resp BP Pulse Ox 98.2 F 107 H 15 109/61 99 09/27/18 08:00 09/27/18 08:00 09/27/18 08:00 09/27/18 08:00 09/27/18 08:00 Intake and Output: 09/27/18 09/27/18 06:59 18:59 Intake Total 1080 Balance 1080 - Medications Medications: Current Medications Acetylcysteine (Acetylcysteine 20%) 4 ml INH RQ4 [facility] Last Admin: 09/27/18 07:42 Dose: 4 ml Albuterol/Ipratropium (Duoneb 3 Mg/0.5 Mg (3 Ml) Ud) 3 ml INH RQ4 PRN PRN Reason: Shortness of Breath Last Admin: 09/27/18 07:42 Dose: 3 ml Ascorbic Acid (Vitamin C 500 Mg Tab) 1,000 mg NG DAILY [facility] Last Admin: 09/27/18 09:44 Dose: 1,000 mg Aspirin (Aspirin Chewable) 81 mg GT DAILY [facility] Last Admin: 09/27/18 09:45 Dose: 81 mg Dextrose (Dextrose 50% Inj) 0 ml IVP .STAT PRN; Protocol PRN Reason: Hypoglycemia Protocol Dextrose (Glutose 15) 0 gm PO .ONCE PRN; Protocol PRN Reason: Hypoglycemia Protocol Ergocalciferol (Drisdol 50,000 Intl Units Cap) 1 cap GT Q7D [facility] Stop: 10/06/18 19:16 Last Admin: 09/22/18 18:30 Dose: 1 cap Glucagon (Glucagen Diagnostic Kit) 0 mg IM .STAT PRN; Protocol PRN Reason: Hypoglycemia Protocol Acyclovir 400 mg/ Sodium (Chloride) 100 mls @ 100 mls/hr IV Q8H [facility]; Protocol Stop: 10/02/18 10:31 Last Admin: 09/27/18 09:43 Dose: 100 mls/hr Insulin Aspart (Novolog) 0 unit SC Q6H [facility]; Protocol Last Admin: 09/27/18 06:37 Dose: 2 units Lactobacillus Acidophilus (Bacid Acidophilus) 1 cap PEG Q12 [facility] Last Admin: 09/27/18 09:43 Dose: 1 cap Methimazole (Tapazole) 20 mg PO Q8 [facility] Last Admin: 09/27/18 06:38 Dose: 20 mg Modafinil (Provigil) 50 mg PO DAILY [facility] Last Admin: 09/27/18 09:43 Dose: 50 mg Multivitamins (Hexavitamin) 1 tab PEG DAILY [facility] Last Admin: 09/27/18 09:44 Dose: 1 tab Pantoprazole Sodium (Protonix Susp) 40 mg GT Q12H [facility] Last Admin: 09/27/18 09:43 Dose: 40 mg Tamsulosin HCl (Flomax) 0.4 mg PEG DAILY [facility] Last Admin: 09/27/18 09:43 Dose: 0.4 mg Vitamin A (Vitamin A & D Oint Ud Foilpak) 0.5 ea TOP BID [facility] Last Admin: 09/27/18 09:43 Dose: 0.5 ea - Labs Labs: 09/27/18 06:26 09/27/18 06:26 PT 11.9 SECONDS (9.7-12.2) 09/04/18 06:22 INR 1.1 09/04/18 06:22 APTT 29 SECONDS (21-34) 09/02/18 05:48 - Constitutional Appears: Older Than Stated Age, Chronically Ill - Head Exam Head Exam: ATRAUMATIC, NORMOCEPHALIC - Eye Exam Eye Exam: EOMI - ENT Exam ENT Exam: Mucous Membranes Moist - Neck Exam Additional comments: trach - Respiratory Exam Respiratory Exam: Clear to Ausculation Bilateral. absent: Rhonchi, Wheezes Additional comments: On vent - Cardiovascular Exam Cardiovascular Exam: REGULAR RHYTHM, +S1, +S2 - GI/Abdominal Exam GI & Abdominal Exam: Soft, Normal Bowel Sounds. absent: Tenderness - Extremities Exam Extremities Exam: absent: Pedal Edema, Tenderness - Neurological Exam Neurological Exam: Awake. absent: Alert, Oriented x3 - Psychiatric Exam Psychiatric exam: Normal Affect, Normal Mood - Skin Skin Exam: Dry, Intact Assessment and Plan - Assessment and Plan (Free Text) Assessment: 53yo F admitted originally to ICU for cardiac arrest, septic shock Plan: Septic Shock secondary to Pneumonia and Urinary Tract Infection New Pneumonia-->pseudomonas * WBC count coming down from yesterday 27.1 --> 11.6. Increase ML due to IV steroids. * Infectious Disease (Dr. Brock) on board-->help appreciated * Meropenem d/c 08/27 * Maxipime 1gm [id number] (from 08/27/18 to 09/12/18) * Trach Aspirate: Psuedomonas * s/p bronchoscopy (08/23/18) * 08/23: Bronchial Washings: pseudomonas Aeruginosa * 08/23: Fungal Culture: Prelim: negative * 08/23: Mycobacterial culture: negative * s/p chest tube 09/06/18; removed 09/15 * Pleural fluid: no growth * Recent culture: * 08/25/18 Blood culture: no growth 5 days X 2 * 08/23/18 Blood culture: no growth after 5 days X 2 * 08/27/18 Blood culture: no growth after 5 days * 08/27/18 UA and Urine Culture: no growth * Salmonella, shigella, or campylobacteria: not detected. * Trachasp: Pseudomonas Aeruginosa-->sensitive to Cipro * 09/19 Urine culture: gram positive cocci * s/p Lumbar Puncture * Opening pressure: 21; normal no evidence of ICP * CSF Culture: No growth * No Mycobact nor fungal observed * HSV 1 DNA and HSV 2: not detected * no CSF growth * Discussed with Dr. Soniya Parekh, atraumatic tap. * Discussed with Dr. Brock, continue Acyclovir 700mg IV Q8H for 10 days to cover. Finish on 10/02. * Procalcitonin: 2.89 (08/28)-->0.33 (09/04)--->0.34 Shock Liver; Transminitis; resolving * GI has signed off * Hepatitis serology negative * Ammonia: normal * elevated INR--> vitamin K 08/24 * 08/24: off statin, benadryl, benzo, ambien, and micafungin (gave dose of 08/23) * Continue to monitor LFTs; suspected medication induced or related to low blood pressure * Gi (Dr. Murray) * discussed case with fellow 08/26/18 * Abd US shows bilateral pleural effusions, patent portal vein, no hydronephrosis, no GB stones or cholecystitis * CT Abdomen/pelvis (08/25/18): limited evaluated evaluation hepatic vein thrombosis. heterogenous attenuation of the liver. Anoxic Encephalopathy; unresolved; seems to be patients baseline * Code Blue 07/10 and 07/20 * Patient prior knowledge of 5 languages per but does not follow commands * CT head: no acute intracranial pathology. Age-related changes. no significant interval change. * suspect cognitive decline since second code blue * Brain MRI (09/08/18); no definite mass effect or suspicious extra axial collection. no evidence of acute or subacute brain infarction at this time. Borderline pattern of hydrocephalus * s/p Lumbar Puncture 09/15 * Opening pressure: 21; normal no evidence of ICP * CSF Culture: No growth * No Mycobact nor fungal observed * HSV 1 DNA and HSV 2: not detected chronic Respiratory Failure Pulmonary Edema Pseudomona Pneumonia s/p Trach * Patient having some respiratory distress this morning and ample secretions removed from trach via suction. Stat duoneb treatment given. Patient has Q4 dounebs and mucomist ordered. * Patient underwent tracheostomy 07/24/18, s/p bronchoscopy 08/23, s/p right chest tube insertion * Patient had tolerated trach collars thru Tuesday 08/14; however she has been on vent to trach. Fi02: 30 percent * Pulmonary (Dr. Lozada) on board-->assisting with weaning from trach on vent to trach collar * Duonebs 3ml Inh Q6H * s/p bronchoscopy (08/23/18) * Pseudomonas aerguinosa * dictated by dr lozada * 08/23: Bronchial Washings: pseudomonas Aeruginosa * 08/23: Fungal Culture: Prelim: negative * 08/23: Mycobacterial culture: prelim * s/p chest tube insertion (09/06/18) was removed 09/15 * pleural fluid: no growth * Chest physiotherapy Ventricular Tachycardia NSTEMI Apical Thrombus LLE DVT s/p IVC filter * ASA 81 daily restarted * Code Blue 07/10: SVT==>VT required amiodarone, magnesium, one shock delivered * Code Blue 07/20: vtach s/p amiodarone, fluid, calcium gluconate, required compressions and shock * S/p IVC filter 08/23/18 * Cardiology Dr Francisco on case help appreciated * No cath needed. * Medical management * No chemical anticoagulation in light of bleeding episodes (patient has dysfunction uterine bleeding required blood transfusions; Ob has been consulted earlier in the hospitalization to inpatient workup)-->recommending heparin 5000 unit subq8 (DVT ppx dose) and aspirin 81mg PO daily; likely thrombus is organized a month of anticoagulation; risk is due to bleeding against stroke * d/c Propranolol 5mg PO TID (hold SBP<100 and HR<60) * Eliquis d/c bleeding and anemia-->dvt ppx and aspirin * Echo discussed with Dr. Francisco, patient does have residual clot-->aware we cannot anticoagulate given heavy vaginal bleeding * H/H stable in 10's no vaginal bleeding noted since chemical anticoagulation d/c; c.w Aspirin 81mg PO daily [facility] Urinary Tract Infection (resolved) * OFF Contact isolation Diabetes-->chronic * HgBA1c: 7.8 * Hypoglycemic protocol * held Lantus 15 units subcutaneous at bedtime Q12 since 08/23/18 * Hypoglycemic 08/23/18 AM * Accuchecks Q6H * Novolog sliding scale * off Crestor 5mg POqHS secondary to LFTs Acute on Chronic Renal Failure * Nephrology (Dr. Hyde) on board--> help appreciated-->has signed off Hyperthyroidism? Low TSH, and Free T4 Thyroid Storm * Note Thyroid studies taken before amiodarone was given (please advised this is not amiodarone induced her levels were abnormal prior) * Patient does not have prior thyroid history * Endocrinology (Dr. Gayle) on board help appreciated * Thyroid U/S 07/16/18: showed heterogenous thyroid with multiple nodules bilaterally. She will need outpatient FNA Bx of the complex Left Lobe cyst (please see full report) * Methimazole 20mg PO TID * off Propranolol 5 mg PO TID due to hypotension * Monitor LFTs Anemia Likely Secondary to Chronic Diseases Dysfunctional uterine bleeding * Iron normal, TIBC low, Iron Saturation normal, Ferritin normal * Stool occult blood negative * B12 normal * Folate Normal * Transfused 1 unit PRBC 07/22/18, 2 unit of PRBC 08/13/18 1 unit on 08/17/18, 1 unit 08/23/18 * Patient has been seen by OB Hospitalist; no contraindication to anticoagulation * recommend outpatient workup for vaginal bleeding * Case discussed with stone gluer recommending against eliquis in light of bleeding; recommending for DVT ppx and aspirin if patient can tolerate it Vitamin D deficiency * 50,000 international units once a week (3 doses given so far) * Restart Vitamin D 50,000 IU once a week started on 08/18/18) Thrombocytopenia-->resolved * HIT/RUSTY were negative 13 mm Left Adrenal Nodule * As seen on CT Chest 07/16/[address] abdomen/pelvis * Will need outpatient follow up for cross sectional imaging for better characterization Hypernatremia (resolved) * Start free fluid washes 250ml Q6 via tube feeds * D5 Free water @ 100ml 09/23/18 Deconditioning * Patient needs continued PT/O * reposition q2h * Respiratory attempting to wean but remains on vent. * Brain MRI (09/08/18); no definite mass effect or suspicious extra axial collection. no evidence of acute or subacute brain infarction at this time. Borderline pattern of hydrocephalus * Patient unable to get LTAC given lack of insurance [employer] * Trazodone discontinued, EPS seem to have improved * Given Ativan 0.5mg IV X1 09/24 to reverse Prophylactic measure * Protonix 40mg GT BID * Lactobacillus 1 cap PO BID * MVI 1x/day * Vitamin C 1,000 NG 1x/day * s/p Trach and Peg * SCD on Right and contraindicated on Left due to DVT * Peg feedings * Pulmcar 40cc/hr * patient had frequent BMs on prior formula; no diarrhea; we have spoken with dietary to change it on 08/19/18 * PICC Line d/c due to coiling * Patient has midline access * Note: speak to patient in alexis to assess neurologic status-->she does follow sometimes * s/p bronchoscopy 08/23 * s/p IVC filter 08/23 * s/p LP 09/15 * s/p right chest tube insertion 09/06; removed 09/15 * patient is FULL CODE * Provigil 50mg PO daily started to promote wakefulness during the day. * Social work note (08/09/18): patient is undocumented, has not health insurance, dc planning will be at home with Disposition: Patient to continue Acyclovir to cover for encephalitis; HSV negative, but patient to finish antiviral courser for coverage. Continue aggressive PT/OT Case discussed and seen with Dr. North Weinberg, PGY-1 <North Nesbitt J - Last Filed: 10/04/18 02:56> Objective - Vital Signs/Intake and Output Vital Signs (last 24 hours): Temp Pulse Resp BP Pulse Ox 97.3 F L 90 19 93/67 L 100 10/04/18 00:00 10/04/18 02:00 10/04/18 02:00 10/04/18 00:05 10/04/18 02:00 Intake and Output: 10/03/18 10/04/18 18:59 06:59 Intake Total 680 Output Total 450 Balance 230 - Medications Medications: Current Medications Acetylcysteine (Acetylcysteine 20%) 4 ml INH RQ4 [facility] Last Admin: 10/03/18 20:30 Dose: Not Given Albuterol/Ipratropium (Duoneb 3 Mg/0.5 Mg (3 Ml) Ud) 3 ml INH RQ4 PRN PRN Reason: Shortness of Breath Ascorbic Acid (Vitamin C 500 Mg Tab) 1,000 mg NG DAILY [facility] Last Admin: 10/03/18 09:44 Dose: 1,000 mg Aspirin (Aspirin Chewable) 81 mg GT DAILY [facility] Last Admin: 10/03/18 09:44 Dose: 81 mg Dextrose (Dextrose 50% Inj) 0 ml IVP .STAT PRN; Protocol PRN Reason: Hypoglycemia Protocol Dextrose (Glutose 15) 0 gm PO .ONCE PRN; Protocol PRN Reason: Hypoglycemia Protocol Ergocalciferol (Drisdol 50,000 Intl Units Cap) 1 cap GT Q7D [facility] Stop: 10/06/18 19:16 Last Admin: 09/29/18 18:20 Dose: 1 cap Glucagon (Glucagen Diagnostic Kit) 0 mg IM .STAT PRN; Protocol PRN Reason: Hypoglycemia Protocol Meropenem 500 mg/ Sodium (Chloride) 100 mls @ 100 mls/hr IVPB Q8H [facility]; Protocol Last Admin: 10/03/18 23:04 Dose: 100 mls/hr Insulin Aspart (Novolog) 0 unit SC Q12H [facility]; Protocol Last Admin: 10/04/18 00:11 Dose: Not Given Lactobacillus Acidophilus (Bacid Acidophilus) 1 cap PEG Q12 [facility] Last Admin: 10/03/18 21:39 Dose: 1 cap Methimazole (Tapazole) 20 mg PO Q8 [facility] Last Admin: 10/03/18 21:39 Dose: 20 mg Modafinil (Provigil) 50 mg PO DAILY [facility] Last Admin: 10/03/18 09:44 Dose: 50 mg Multivitamins (Hexavitamin) 1 tab PEG DAILY [facility] Last Admin: 10/03/18 09:44 Dose: 1 tab Pantoprazole Sodium (Protonix Susp) 40 mg GT Q12H [facility] Last Admin: 10/03/18 21:40 Dose: 40 mg Tamsulosin HCl (Flomax) 0.4 mg PEG DAILY [facility] Last Admin: 10/03/18 09:44 Dose: 0.4 mg Vitamin A (Vitamin A & D Oint Ud Foilpak) 0.5 ea TOP BID [facility] Last Admin: 10/03/18 17:26 Dose: 0.5 ea - Labs Labs: 10/03/18 07:09 10/03/18 07:09 PT 12.9 SECONDS (9.7-12.2) H 10/02/18 06:10 INR 1.2 10/02/18 06:10 APTT 23 SECONDS (21-34) 10/02/18 06:10 Attending/Attestation - Attestation I have personally seen and examined this patient.: Yes I have fully participated in the care of the patient.: Yes I have reviewed all pertinent clinical information, including history, physical exam and plan: Yes Notes (Text): 10/04/18 02:56 This is a late entry. Care of this patient was gone over with resident Dr. Weinberg. North Nesbitt D.O.
[2018-09-28] MEDS: (Novolog) Insulin Aspart, Recombinant 100 u/ml 10 ml vial SC SCH ×4 (00:09→18:36)
[2018-09-28] MEDS: Acyclovir 400 MG in Sodium Chloride 0.9% 100 ML IV SCH ×3 (02:30→17:33)
[2018-09-28] MEDS: Albuterol-Ipratrop 3 mg / 0.5 (3 ml) UD INH PRN ×4 (03:17→19:56)
[2018-09-28] MEDS: Acetylcysteine 20% Inhal Soln (4ml) INH SCH ×5 (03:17→19:56)
[2018-09-28 06:16] LABS: BASO % 0.3 % (0.0-2.0); EOS # 0.1 K/uL (0.0-0.7); EOS % 0.9 % (0.0-4.0); HEMOGLOBIN 8.8 g/dL (11.0-16.0); LYMPH # 1.3 K/uL (1.0-4.3); LYMPH % 13.5 % (20.0-40.0); MEAN CELL VOLUME 89.7 fL (81.0-99.0); MEAN CORPUSCULAR HEMOGLOBIN 30.4 pg (27.0-31.0); MEAN CORPUSCULAR HGB CONC 33.8 g/dL (33.0-37.0); MEAN PLATELET VOLUME 8.2 fL (7.2-11.7); MONO # 0.4 K/uL (0.0-0.8); MONO % 4.4 % (0.0-10.0); NEUT % 80.9 % (50.0-75.0); RBC 2.89 Mil/uL (3.80-5.20); RED CELL DISTRIBUTION WIDTH 17.5 % (11.5-14.5); WHITE BLOOD COUNT 9.9 K/uL (4.8-10.8)
[2018-09-28 06:43] LABS: ALB/GLOB RATIO 0.9 (1.0-2.1); ALT/SGPT 37 U/L (9-52); AST/SGOT 36 U/L (14-36); BLOOD UREA NITROGEN 38 mg/dL (7-17); CALCIUM 8.6 mg/dl (8.6-10.4); GFR NON-AFRICAN AMERICAN > 60
--- NOTE | 2018-09-28 09:49 | CP.PCM.PN ---
<Elijah Weinberg - Last Filed: 09/28/18 16:24> Subjective - Date & Time of Evaluation Date of Evaluation: 09/28/18 Time of Evaluation: 09:41 - Subjective Subjective: PGY-[address] Merry Nesbitt Patient seen and examined in ICU. No acute events overnight. Patient remains on vent. She was tracking my movements today but remains nonverbal and not following commands. No significant clinical changes. ROS unable to be obtained. Objective - Vital Signs/Intake and Output Vital Signs (last 24 hours): Temp Pulse Resp BP Pulse Ox 98.3 F 98 H 18 133/74 97 09/28/18 04:00 09/28/18 04:00 09/28/18 04:00 09/28/18 04:00 09/28/18 04:00 Intake and Output: 09/28/18 09/28/18 06:59 18:59 Intake Total 650 Output Total 1000 Balance -350 - Medications Medications: Current Medications Acetylcysteine (Acetylcysteine 20%) 4 ml INH RQ4 [facility] Last Admin: 09/28/18 07:40 Dose: 4 ml Albuterol/Ipratropium (Duoneb 3 Mg/0.5 Mg (3 Ml) Ud) 3 ml INH RQ4 PRN PRN Reason: Shortness of Breath Last Admin: 09/28/18 07:40 Dose: 3 ml Ascorbic Acid (Vitamin C 500 Mg Tab) 1,000 mg NG DAILY [facility] Last Admin: 09/27/18 09:44 Dose: 1,000 mg Aspirin (Aspirin Chewable) 81 mg GT DAILY [facility] Last Admin: 09/27/18 09:45 Dose: 81 mg Dextrose (Dextrose 50% Inj) 0 ml IVP .STAT PRN; Protocol PRN Reason: Hypoglycemia Protocol Dextrose (Glutose 15) 0 gm PO .ONCE PRN; Protocol PRN Reason: Hypoglycemia Protocol Ergocalciferol (Drisdol 50,000 Intl Units Cap) 1 cap GT Q7D [facility] Stop: 10/06/18 19:16 Last Admin: 09/22/18 18:30 Dose: 1 cap Glucagon (Glucagen Diagnostic Kit) 0 mg IM .STAT PRN; Protocol PRN Reason: Hypoglycemia Protocol Acyclovir 400 mg/ Sodium (Chloride) 100 mls @ 100 mls/hr IV Q8H [facility]; Protocol Stop: 10/02/18 10:31 Last Admin: 09/28/18 02:30 Dose: 100 mls/hr Insulin Aspart (Novolog) 0 unit SC Q6H [facility]; Protocol Last Admin: 09/28/18 05:20 Dose: 2 units Lactobacillus Acidophilus (Bacid Acidophilus) 1 cap PEG Q12 [facility] Last Admin: 09/27/18 21:45 Dose: 1 cap Methimazole (Tapazole) 20 mg PO Q8 [facility] Last Admin: 09/28/18 05:00 Dose: 20 mg Modafinil (Provigil) 50 mg PO DAILY [facility] Last Admin: 09/27/18 09:43 Dose: 50 mg Multivitamins (Hexavitamin) 1 tab PEG DAILY [facility] Last Admin: 09/27/18 09:44 Dose: 1 tab Pantoprazole Sodium (Protonix Susp) 40 mg GT Q12H [facility] Last Admin: 09/27/18 21:45 Dose: 40 mg Tamsulosin HCl (Flomax) 0.4 mg PEG DAILY [facility] Last Admin: 09/27/18 09:43 Dose: 0.4 mg Vitamin A (Vitamin A & D Oint Ud Foilpak) 0.5 ea TOP BID [facility] Last Admin: 09/27/18 17:30 Dose: 0.5 ea - Labs Labs: 09/28/18 06:02 09/28/18 06:02 PT 11.9 SECONDS (9.7-12.2) 09/04/18 06:22 INR 1.1 09/04/18 06:22 APTT 29 SECONDS (21-34) 09/02/18 05:48 - Constitutional Appears: No Acute Distress - Head Exam Head Exam: ATRAUMATIC, NORMOCEPHALIC - Eye Exam Eye Exam: EOMI - ENT Exam ENT Exam: Mucous Membranes Moist - Neck Exam Additional comments: trach - Respiratory Exam Respiratory Exam: Clear to Ausculation Bilateral. absent: Rales, Wheezes - Cardiovascular Exam Cardiovascular Exam: REGULAR RHYTHM, +S1, +S2 - GI/Abdominal Exam GI & Abdominal Exam: Soft, Normal Bowel Sounds - Neurological Exam Neurological Exam: Awake. absent: Oriented x3 Additional comments: Patient was tracking my movements with her head and eyes today. She was not able to follow commands however and remains nonverbal. - Skin Skin Exam: Dry, Intact Assessment and Plan - Assessment and Plan (Free Text) Assessment: 53yo F admitted originally to ICU for cardiac arrest, septic shock Plan: Septic Shock secondary to Pneumonia and Urinary Tract Infection New Pneumonia-->pseudomonas * WBC WNL * Infectious Disease (Dr. Brock) on board-->help appreciated * Patient is off antibiotics at this time * Meropenem d/c 08/27 * Maxipime 1gm [id number] (from 08/27/18 to 09/12/18) * Trach Aspirate: Psuedomonas * s/p bronchoscopy (08/23/18) * 08/23: Bronchial Washings: pseudomonas Aeruginosa * 08/23: Fungal Culture: Prelim: negative * 08/23: Mycobacterial culture: negative * s/p chest tube 09/06/18; removed 09/15 * Pleural fluid: no growth * Recent culture: * 08/25/18 Blood culture: no growth 5 days X 2 * 08/23/18 Blood culture: no growth after 5 days X 2 * 08/27/18 Blood culture: no growth after 5 days * 08/27/18 UA and Urine Culture: no growth * Salmonella, shigella, or campylobacteria: not detected. * Trachasp: Pseudomonas Aeruginosa-->sensitive to Cipro * 09/19 Urine culture: gram positive cocci * s/p Lumbar Puncture * Opening pressure: 21; normal no evidence of ICP * CSF Culture: No growth * No Mycobact nor fungal observed * HSV 1 DNA and HSV 2: not detected * no CSF growth * Discussed with Dr. Soniya Parekh, atraumatic tap. * Discussed with Dr. Brock, continue Acyclovir 700mg IV Q8H for 10 days to cover. Finish on 10/02. * Procalcitonin: 2.89 (08/28)-->0.33 (09/04)--->0.34 Shock Liver; Transminitis; resolving * GI has signed off * Hepatitis serology negative * Ammonia: normal * elevated INR--> vitamin K 08/24 * 08/24: off statin, benadryl, benzo, ambien, and micafungin (gave dose of 08/23) * Continue to monitor LFTs; suspected medication induced or related to low blood pressure * Gi (Dr. Murray) * discussed case with fellow 08/26/18 * Abd US shows bilateral pleural effusions, patent portal vein, no hydronephrosis, no GB stones or cholecystitis * CT Abdomen/pelvis (08/25/18): limited evaluated evaluation hepatic vein thrombosis. heterogenous attenuation of the liver. Anoxic Encephalopathy; unresolved; seems to be patients baseline * Code Blue 07/10 and 07/20 * Patient prior knowledge of 5 languages per but does not follow commands * CT head: no acute intracranial pathology. Age-related changes. no significant interval change. * suspect cognitive decline since second code blue * Brain MRI (09/08/18); no definite mass effect or suspicious extra axial collection. no evidence of acute or subacute brain infarction at this time. Borderline pattern of hydrocephalus * s/p Lumbar Puncture 09/15 * Opening pressure: 21; normal no evidence of ICP * CSF Culture: No growth * No Mycobact nor fungal observed * HSV 1 DNA and HSV 2: not detected chronic Respiratory Failure Pulmonary Edema Pseudomona Pneumonia s/p Trach * Patient having some respiratory distress this morning and ample secretions removed from trach via suction. Stat duoneb treatment given. Patient has Q4 dounebs and mucomist ordered. * Patient underwent tracheostomy 07/24/18, s/p bronchoscopy 08/23, s/p right chest tube insertion * Patient had tolerated trach collars thru Tuesday 08/14; however she has been on vent to trach. Fi02: 30 percent * Pulmonary (Dr. Lozada) on board-->assisting with weaning from trach on vent to trach collar * Duonebs 3ml Inh Q6H * s/p bronchoscopy (08/23/18) * Pseudomonas aerguinosa * dictated by dr lozada * 08/23: Bronchial Washings: pseudomonas Aeruginosa * 08/23: Fungal Culture: Prelim: negative * 08/23: Mycobacterial culture: prelim * s/p chest tube insertion (09/06/18) was removed 09/15 * pleural fluid: no growth * Chest physiotherapy Ventricular Tachycardia NSTEMI Apical Thrombus LLE DVT s/p IVC filter * ASA 81 daily restarted * Code Blue 07/10: SVT==>VT required amiodarone, magnesium, one shock delivered * Code Blue 07/20: vtach s/p amiodarone, fluid, calcium gluconate, required compressions and shock * S/p IVC filter 08/23/18 * Cardiology Dr Francisco on case help appreciated * No cath needed. * Medical management * No chemical anticoagulation in light of bleeding episodes (patient has dysfunction uterine bleeding required blood transfusions; Ob has been consulted earlier in the hospitalization to inpatient workup)-->recommending heparin 5000 unit subq8 (DVT ppx dose) and aspirin 81mg PO daily; likely thrombus is organized a month of anticoagulation; risk is due to bleeding against stroke * d/c Propranolol 5mg PO TID (hold SBP<100 and HR<60) * Eliquis d/c bleeding and anemia-->dvt ppx and aspirin * Echo discussed with Dr. Francisco, patient does have residual clot-->aware we cannot anticoagulate given heavy vaginal bleeding * H/H stable in 10's no vaginal bleeding noted since chemical anticoagulation d/c; c.w Aspirin 81mg PO daily [facility]RE Urinary Tract Infection (resolved) * OFF Contact isolation Diabetes-->chronic * HgBA1c: 7.8 * Hypoglycemic protocol * held Lantus 15 units subcutaneous at bedtime Q12 since 08/23/18 * Hypoglycemic 08/23/18 AM * Accuchecks Q6H * Novolog sliding scale * off Crestor 5mg POqHS secondary to LFTs Acute on Chronic Renal Failure * Nephrology (Dr. Hyde) on board--> help appreciated-->has signed off Hyperthyroidism? Low TSH, and Free T4 Thyroid Storm * Note Thyroid studies taken before amiodarone was given (please advised this is not amiodarone induced her levels were abnormal prior) * Patient does not have prior thyroid history * Endocrinology (Dr. Gayle) on board help appreciated * Thyroid U/S 07/16/18: showed heterogenous thyroid with multiple nodules bilaterally. She will need outpatient FNA Bx of the complex Left Lobe cyst (please see full report) * Methimazole 20mg PO TID * off Propranolol 5 mg PO TID due to hypotension * Monitor LFTs Anemia Likely Secondary to Chronic Diseases Dysfunctional uterine bleeding * Iron normal, TIBC low, Iron Saturation normal, Ferritin normal * Stool occult blood negative * B12 normal * Folate Normal * Transfused 1 unit PRBC 07/22/18, 2 unit of PRBC 08/13/18 1 unit on 08/17/18, 1 unit 08/23/18 * Patient has been seen by OB Hospitalist; no contraindication to anticoag ulation * recommend outpatient workup for vaginal bleeding * Case discussed with furnace setter recommending against eliquis in light of bleeding; recommending for DVT ppx and aspirin if patient can tolerate it Vitamin D deficiency * 50,000 international units once a week (3 doses given so far) * Restart Vitamin D 50,000 IU once a week started on 08/18/18) Thrombocytopenia-->resolved * HIT/RUSTY were negative 13 mm Left Adrenal Nodule * As seen on CT Chest 07/16/[address] abdomen/pelvis * Will need outpatient follow up for cross sectional imaging for better characterization Hypernatremia (resolved) * Start free fluid washes 250ml Q6 via tube feeds * D5 Free water @ 100ml 09/23/18 Deconditioning * Patient needs continued PT/O * reposition q2h * Respiratory attempting to wean but remains on vent. * Brain MRI (09/08/18); no definite mass effect or suspicious extra axial collection. no evidence of acute or subacute brain infarction at this time. Borderline pattern of hydrocephalus * Patient unable to get LTAC given lack of insurance T[employer] Dysk[employer]a * Trazodone discontinued, EPS seem to have improved * Given Ativan 0.5mg IV X1 09/24 to reverse Prophylactic measure * Protonix 40mg GT BID * Lactobacillus 1 cap PO BID * MVI 1x/day * Vitamin C 1,000 NG 1x/day * s/p Trach and Peg * SCD on Right and contraindicated on Left due to DVT * Peg feedings * Pulmcar 40cc/hr * patient had frequent BMs on prior formula; no diarrhea; we have spoken with dietary to change it on 08/19/18 * PICC Line d/c due to coiling * Patient has midline access * Note: speak to patient in alexis to assess neurologic status-->she does follow sometimes * s/p bronchoscopy 08/23 * s/p IVC filter 08/23 * s/p LP 09/15 * s/p right chest tube insertion 09/06; removed 09/15 * patient is FULL CODE * Provigil 50mg PO daily started to promote wakefulness during the day. * Social work note (08/09/18): patient is undocumented, has not health insurance, dc planning will be at home with Disposition: Patient to continue Acyclovir to cover for encephalitis; HSV negative, but patient to finish antiviral courser for coverage. Continue aggressive PT/OT Case discussed and seen with Dr. North Weinberg, PGY-1 <North Nesbitt J - Last Filed: 10/04/18 02:55> Objective - Vital Signs/Intake and Output Vital Signs (last 24 hours): Temp Pulse Resp BP Pulse Ox 97.3 F L 90 19 93/67 L 100 10/04/18 00:00 10/04/18 02:00 10/04/18 02:00 10/04/18 00:05 10/04/18 02:00 Intake and Output: 10/03/18 10/04/18 18:59 06:59 Intake Total 680 Output Total 450 Balance 230 - Medications Medications: Current Medications Acetylcysteine (Acetylcysteine 20%) 4 ml INH RQ4 [facility] Last Admin: 10/03/18 20:30 Dose: Not Given Albuterol/Ipratropium (Duoneb 3 Mg/0.5 Mg (3 Ml) Ud) 3 ml INH RQ4 PRN PRN Reason: Shortness of Breath Ascorbic Acid (Vitamin C 500 Mg Tab) 1,000 mg NG DAILY [facility] Last Admin: 10/03/18 09:44 Dose: 1,000 mg Aspirin (Aspirin Chewable) 81 mg GT DAILY [facility] Last Admin: 10/03/18 09:44 Dose: 81 mg Dextrose (Dextrose 50% Inj) 0 ml IVP .STAT PRN; Protocol PRN Reason: Hypoglycemia Protocol Dextrose (Glutose 15) 0 gm PO .ONCE PRN; Protocol PRN Reason: Hypoglycemia Protocol Ergocalciferol (Drisdol 50,000 Intl Units Cap) 1 cap GT Q7D [facility] Stop: 10/06/18 19:16 Last Admin: 09/29/18 18:20 Dose: 1 cap Glucagon (Glucagen Diagnostic Kit) 0 mg IM .STAT PRN; Protocol PRN Reason: Hypoglycemia Protocol Meropenem 500 mg/ Sodium (Chloride) 100 mls @ 100 mls/hr IVPB Q8H [facility]; Protocol Last Admin: 10/03/18 23:04 Dose: 100 mls/hr Insulin Aspart (Novolog) 0 unit SC Q12H [facility]; Protocol Last Admin: 10/04/18 00:11 Dose: Not Given Lactobacillus Acidophilus (Bacid Acidophilus) 1 cap PEG Q12 [facility] Last Admin: 10/03/18 21:39 Dose: 1 cap Methimazole (Tapazole) 20 mg PO Q8 [facility] Last Admin: 10/03/18 21:39 Dose: 20 mg Modafinil (Provigil) 50 mg PO DAILY [facility] Last Admin: 10/03/18 09:44 Dose: 50 mg Multivitamins (Hexavitamin) 1 tab PEG DAILY [facility] Last Admin: 10/03/18 09:44 Dose: 1 tab Pantoprazole Sodium (Protonix Susp) 40 mg GT Q12H [facility] Last Admin: 10/03/18 21:40 Dose: 40 mg Tamsulosin HCl (Flomax) 0.4 mg PEG DAILY [facility] Last Admin: 10/03/18 09:44 Dose: 0.4 mg Vitamin A (Vitamin A & D Oint Ud Foilpak) 0.5 ea TOP BID [facility] Last Admin: 10/03/18 17:26 Dose: 0.5 ea - Labs Labs: 10/03/18 07:09 10/03/18 07:09 PT 12.9 SECONDS (9.7-12.2) H 10/02/18 06:10 INR 1.2 10/02/18 06:10 APTT 23 SECONDS (21-34) 10/02/18 06:10 Attending/Attestation - Attestation I have personally seen and examined this patient.: Yes I have fully participated in the care of the patient.: Yes I have reviewed all pertinent clinical information, including history, physical exam and plan: Yes Notes (Text): 10/04/18 02:55 This is a late entry. Care of this patient was gone over with resident Dr. Weinberg. North Nesbitt D.O.
[2018-09-28] MEDS: Lactobacillus Acidophilus 500 MU Cap PEG SCH ×2 (10:31→21:41)
[2018-09-28] MEDS: Multiple Vitamins Tab PEG SCH (10:31)
[2018-09-28] MEDS: Vitamins A & D Oint UD Foilpak TOP SCH ×2 (10:32→17:07)
[2018-09-28] MEDS: Modafinil 50 MG TAB PO SCH (10:32)
[2018-09-28] MEDS: Pantoprazole 40 mg Susp UD GT SCH ×2 (10:32→21:41)
[2018-09-28] MEDS ORDERED: (Novolog) Insulin Aspart, Recombinant 100 u/ml 10 ml vial SC SCH (18:30)
[2018-09-29] MEDS: Albuterol-Ipratrop 3 mg / 0.5 (3 ml) UD INH PRN ×5 (00:38→19:25)
[2018-09-29] MEDS: Acetylcysteine 20% Inhal Soln (4ml) INH SCH ×6 (00:38→19:25)
[2018-09-29] MEDS: Acyclovir 400 MG in Sodium Chloride 0.9% 100 ML IV SCH ×3 (02:30→17:50)
[2018-09-29 06:22] LABS: BASO % 0.4 % (0.0-2.0); EOS # 0.2 K/uL (0.0-0.7); EOS % 2.6 % (0.0-4.0); HEMOGLOBIN 8.4 g/dL (11.0-16.0); LYMPH # 1.3 K/uL (1.0-4.3); LYMPH % 15.9 % (20.0-40.0); MEAN CORPUSCULAR HEMOGLOBIN 30.1 pg (27.0-31.0); MEAN CORPUSCULAR HGB CONC 33.1 g/dL (33.0-37.0); MEAN PLATELET VOLUME 8.3 fL (7.2-11.7); MONO # 0.4 K/uL (0.0-0.8); MONO % 4.3 % (0.0-10.0); NEUT # 6.4 K/uL (1.8-7.0); NEUT % 76.8 % (50.0-75.0); NRBC % 0.1 % (0.0-2.0); RBC 2.78 Mil/uL (3.80-5.20); RED CELL DISTRIBUTION WIDTH 18.1 % (11.5-14.5); WHITE BLOOD COUNT 8.4 K/uL (4.8-10.8)
[2018-09-29 06:38] LABS: ALB/GLOB RATIO 0.9 (1.0-2.1); ALBUMIN 2.9 g/dL (3.5-5.0); ALT/SGPT 60 U/L (9-52); AST/SGOT 79 U/L (14-36); BLOOD UREA NITROGEN 36 mg/dL (7-17); CALCIUM 8.3 mg/dl (8.6-10.4); GFR NON-AFRICAN AMERICAN > 60
--- NOTE | 2018-09-29 08:56 | CP.PCM.PN ---
<Elijah Weinberg - Last Filed: 09/29/18 15:59> Subjective - Date & Time of Evaluation Date of Evaluation: 09/29/18 Time of Evaluation: 09:19 - Subjective Subjective: PGY-[address] Merry Nesbitt Patient seen and examined at bedside. No acute events overnight. Patient has been stable on trach. She has been retaining urine - standing order is in for prn straight cath. We do not want to use indwelling mcintyre as this patient has had numerous positive blood cultures during this hospitalization. ROS unable to obtain. Objective - Vital Signs/Intake and Output Vital Signs (last 24 hours): Temp Pulse Resp BP Pulse Ox 98.5 F 96 H 22 128/80 100 09/29/18 08:00 09/29/18 08:00 09/29/18 08:00 09/29/18 08:00 09/29/18 08:00 Intake and Output: 09/29/18 09/29/18 06:59 18:59 Intake Total 900 Output Total 0 Balance 900 - Medications Medications: Current Medications Acetylcysteine (Acetylcysteine 20%) 4 ml INH RQ4 [facility] Last Admin: 09/29/18 07:45 Dose: 4 ml Albuterol/Ipratropium (Duoneb 3 Mg/0.5 Mg (3 Ml) Ud) 3 ml INH RQ4 PRN PRN Reason: Shortness of Breath Last Admin: 09/29/18 07:45 Dose: 3 ml Ascorbic Acid (Vitamin C 500 Mg Tab) 1,000 mg NG DAILY [facility] Last Admin: 09/28/18 10:31 Dose: 1,000 mg Aspirin (Aspirin Chewable) 81 mg GT DAILY [facility] Last Admin: 09/28/18 10:31 Dose: 81 mg Dextrose (Dextrose 50% Inj) 0 ml IVP .STAT PRN; Protocol PRN Reason: Hypoglycemia Protocol Dextrose (Glutose 15) 0 gm PO .ONCE PRN; Protocol PRN Reason: Hypoglycemia Protocol Ergocalciferol (Drisdol 50,000 Intl Units Cap) 1 cap GT Q7D [facility] Stop: 10/06/18 19:16 Last Admin: 09/22/18 18:30 Dose: 1 cap Glucagon (Glucagen Diagnostic Kit) 0 mg IM .STAT PRN; Protocol PRN Reason: Hypoglycemia Protocol Acyclovir 400 mg/ Sodium (Chloride) 100 mls @ 100 mls/hr IV Q8H [facility]; Protocol Stop: 10/02/18 10:31 Last Admin: 09/29/18 02:30 Dose: 100 mls/hr Insulin Aspart (Novolog) 0 unit SC Q12H [facility]; Protocol Last Admin: 09/29/18 00:00 Dose: Not Given Lactobacillus Acidophilus (Bacid Acidophilus) 1 cap PEG Q12 [facility] Last Admin: 09/28/18 21:41 Dose: 1 cap Methimazole (Tapazole) 20 mg PO Q8 [facility] Last Admin: 09/29/18 05:50 Dose: 20 mg Modafinil (Provigil) 50 mg PO DAILY [facility] Last Admin: 09/28/18 10:32 Dose: 50 mg Multivitamins (Hexavitamin) 1 tab PEG DAILY [facility] Last Admin: 09/28/18 10:31 Dose: 1 tab Pantoprazole Sodium (Protonix Susp) 40 mg GT Q12H [facility] Last Admin: 09/28/18 21:41 Dose: 40 mg Tamsulosin HCl (Flomax) 0.4 mg PEG DAILY [facility] Last Admin: 09/28/18 10:32 Dose: 0.4 mg Vitamin A (Vitamin A & D Oint Ud Foilpak) 0.5 ea TOP BID [facility] Last Admin: 09/28/18 17:07 Dose: 0.5 ea - Labs Labs: 09/29/18 06:10 09/29/18 06:10 PT 11.9 SECONDS (9.7-12.2) 09/04/18 06:22 INR 1.1 09/04/18 06:22 APTT 29 SECONDS (21-34) 09/02/18 05:48 - Constitutional Appears: Non-toxic, No Acute Distress - Head Exam Head Exam: ATRAUMATIC, NORMOCEPHALIC - Eye Exam Eye Exam: EOMI - ENT Exam ENT Exam: Mucous Membranes Moist - Neck Exam Additional comments: trach - Respiratory Exam Respiratory Exam: Clear to Ausculation Bilateral. absent: Rales, Rhonchi, Wheezes Additional comments: on vent - Cardiovascular Exam Cardiovascular Exam: REGULAR RHYTHM, +S1, +S2 - GI/Abdominal Exam GI & Abdominal Exam: Soft, Normal Bowel Sounds. absent: Tenderness - Neurological Exam Neurological Exam: Awake. absent: Alert, Oriented x3 - Psychiatric Exam Psychiatric exam: Flat Affect - Skin Skin Exam: Dry, Intact Assessment and Plan - Assessment and Plan (Free Text) Assessment: 53yo F admitted originally to ICU for cardiac arrest, septic shock Plan: Septic Shock secondary to Pneumonia and Urinary Tract Infection New Pneumonia-->pseudomonas * WBC WNL. Patient's condition has been stable on vent, clinical picture remains about the same. Labs every other day. PRN straight cath for retention. * Infectious Disease (Dr. Brock) on board-->help appreciated * Patient is off antibiotics at this time * Meropenem d/c 08/27 * Maxipime 1gm [id number] (from 08/27/18 to 09/12/18) * Trach Aspirate: Psuedomonas * s/p bronchoscopy (08/23/18) * 08/23: Bronchial Washings: pseudomonas Aeruginosa * 08/23: Fungal Culture: Prelim: negative * 08/23: Mycobacterial culture: negative * s/p chest tube 09/06/18; removed 09/15 * Pleural fluid: no growth * Recent culture: * 08/25/18 Blood culture: no growth 5 days X 2 * 08/23/18 Blood culture: no growth after 5 days X 2 * 08/27/18 Blood culture: no growth after 5 days * 08/27/18 UA and Urine Culture: no growth * Salmonella, shigella, or campylobacteria: not detected. * Trachasp: Pseudomonas Aeruginosa-->sensitive to Cipro * 09/19 Urine culture: gram positive cocci * s/p Lumbar Puncture * Opening pressure: 21; normal no evidence of ICP * CSF Culture: No growth * No Mycobact nor fungal observed * HSV 1 DNA and HSV 2: not detected * no CSF growth * Discussed with Dr. Soniya Parekh, atraumatic tap. * Discussed with Dr. Brock, continue Acyclovir 700mg IV Q8H for 10 days to cover. Finish on 10/02. * Procalcitonin: 2.89 (08/28)-->0.33 (09/04)--->0.34 Shock Liver; Transminitis; resolving * GI has signed off * Hepatitis serology negative * Ammonia: normal * elevated INR--> vitamin K 08/24 * 08/24: off statin, benadryl, benzo, ambien, and micafungin (gave dose of 08/23) * Continue to monitor LFTs; suspected medication induced or related to low blood pressure * Gi (Dr. Murray) * discussed case with fellow 08/26/18 * Abd US shows bilateral pleural effusions, patent portal vein, no hydronephrosis, no GB stones or cholecystitis * CT Abdomen/pelvis (08/25/18): limited evaluated evaluation hepatic vein thrombosis. heterogenous attenuation of the liver. Anoxic Encephalopathy; unresolved; seems to be patients baseline * Code Blue 07/10 and 07/20 * Patient prior knowledge of 5 languages per but does not follow commands * CT head: no acute intracranial pathology. Age-related changes. no significant interval change. * suspect cognitive decline since second code blue * Brain MRI (09/08/18); no definite mass effect or suspicious extra axial collection. no evidence of acute or subacute brain infarction at this time. Borderline pattern of hydrocephalus * s/p Lumbar Puncture 09/15 * Opening pressure: 21; normal no evidence of ICP * CSF Culture: No growth * No Mycobact nor fungal observed * HSV 1 DNA and HSV 2: not detected chronic Respiratory Failure Pulmonary Edema Pseudomona Pneumonia s/p Trach * Patient having some respiratory distress this morning and ample secretions removed from trach via suction. Stat duoneb treatment given. Patient has Q4 dounebs and mucomist ordered. * Patient underwent tracheostomy 07/24/18, s/p bronchoscopy 08/23, s/p right chest tube insertion * Patient had tolerated trach collars thru Tuesday 08/14; however she has been on vent to trach. Fi02: 30 percent * Pulmonary (Dr. Lozada) on board-->assisting with weaning from trach on vent to trach collar * Duonebs 3ml Inh Q6H * s/p bronchoscopy (08/23/18) * Pseudomonas aerguinosa * dictated by dr lozada * 08/23: Bronchial Washings: pseudomonas Aeruginosa * 08/23: Fungal Culture: Prelim: negative * 08/23: Mycobacterial culture: prelim * s/p chest tube insertion (09/06/18) was removed 09/15 * pleural fluid: no growth * Chest physiotherapy Ventricular Tachycardia NSTEMI Apical Thrombus LLE DVT s/p IVC filter * ASA 81 daily restarted * Code Blue 07/10: SVT==>VT required amiodarone, magnesium, one shock delivered * Code Blue 07/20: vtach s/p amiodarone, fluid, calcium gluconate, required compressions and shock * S/p IVC filter 08/23/18 * Cardiology Dr Francisco on case help appreciated * No cath needed. * Medical management * No chemical anticoagulation in light of bleeding episodes (patient has dysfunction uterine bleeding required blood transfusions; Ob has been consulted earlier in the hospitalization to inpatient workup)-->recommend ing heparin 5000 unit subq8 (DVT ppx dose) and aspirin 81mg PO daily; likely thrombus is organized a month of anticoagulation; risk is due to bleeding against stroke * d/c Propranolol 5mg PO TID (hold SBP<100 and HR<60) * Eliquis d/c bleeding and anemia-->dvt ppx and aspirin * Echo discussed with Dr. Francisco, patient does have residual clot-->aware we cannot anticoagulate given heavy vaginal bleeding * H/H stable in 10's no vaginal bleeding noted since chemical anticoagulation d/c; c.w Aspirin 81mg PO daily [facility] Urinary Tract Infection (resolved) * OFF Contact isolation Diabetes-->chronic * HgBA1c: 7.8 * Hypoglycemic protocol * held Lantus 15 units subcutaneous at bedtime Q12 since 08/23/18 * Hypoglycemic 08/23/18 AM * Accuchecks Q6H * Novolog sliding scale * off Crestor 5mg POqHS secondary to LFTs Acute on Chronic Renal Failure * Nephrology (Dr. Hyde) on board--> help appreciated-->has signed off Hyperthyroidism? Low TSH, and Free T4 Thyroid Storm * Note Thyroid studies taken before amiodarone was given (please advised this is not amiodarone induced her levels were abnormal prior) * Patient does not have prior thyroid history * Endocrinology (Dr. Gayle) on board help appreciated * Thyroid U/S 07/16/18: showed heterogenous thyroid with multiple nodules bilaterally. She will need outpatient FNA Bx of the complex Left Lobe cyst (please see full report) * Methimazole 20mg PO TID * off Propranolol 5 mg PO TID due to hypotension * Monitor LFTs Anemia Likely Secondary to Chronic Diseases Dysfunctional uterine bleeding * Iron normal, TIBC low, Iron Saturation normal, Ferritin normal * Stool occult blood negative * B12 normal * Folate Normal * Transfused 1 unit PRBC 07/22/18, 2 unit of PRBC 08/13/18 1 unit on 08/17/18, 1 unit 08/23/18 * Patient has been seen by OB Hospitalist; no contraindication to anticoagulation * recommend outpatient workup for vaginal bleeding * Case discussed with machine sign writer recommending against eliquis in light of bleeding; recommending for DVT ppx and aspirin if patient can tolerate it Vitamin D deficiency * 50,000 international units once a week (3 doses given so far) * Restart Vitamin D 50,000 IU once a week started on 08/18/18) Thrombocytopenia-->resolved * HIT/RUSTY were negative 13 mm Left Adrenal Nodule * As seen on CT Chest 07/16/[address] abdomen/pelvis * Will need outpatient follow up for cross sectional imaging for better characterization Hypernatremia (resolved) * Start free fluid washes 250ml Q6 via tube feeds * D5 Free water @ 100ml 09/23/18 Deconditioning * Patient needs continued PT/O * reposition q2h * Respiratory attempting to wean but remains on vent. * Brain MRI (09/08/18); no definite mass effect or suspicious extra axial collection. no evidence of acute or subacute brain infarction at this time. Borderline pattern of hydrocephalus * Patient unable to get LTAC given lack of insurance Tardive Dysk[employer]a * Trazodone discontinued, EPS seem to have improved * Given Ativan 0.5mg IV X1 09/24 to reverse Prophylactic measure * Protonix 40mg GT BID * Lactobacillus 1 cap PO BID * MVI 1x/day * Vitamin C 1,000 NG 1x/day * s/p Trach and Peg * SCD on Right and contraindicated on Left due to DVT * Peg feedings * Pulmcar 40cc/hr * patient had frequent BMs on prior formula; no diarrhea; we have spoken with dietary to change it on 08/19/18 * PICC Line d/c due to coiling * Patient has midline access * Note: speak to patient in alexis to assess neurologic status-->she does follow sometimes * s/p bronchoscopy 08/23 * s/p IVC filter 08/23 * s/p LP 09/15 * s/p right chest tube insertion 09/06; removed 09/15 * patient is FULL CODE * Provigil 50mg PO daily started to promote wakefulness during the day. * Social work note (08/09/18): patient is undocumented, has not health insurance, dc planning will be at home with Disposition: Patient to continue Acyclovir to cover for encephalitis; HSV negative, but patient to finish antiviral courser for coverage. Continue aggressive PT/OT Case discussed and seen with Dr. North Weinberg, PGY-1 <North Nesbitt J - Last Filed: 10/04/18 02:55> Objective - Vital Signs/Intake and Output Vital Signs (last 24 hours): Temp Pulse Resp BP Pulse Ox 97.3 F L 90 19 93/67 L 100 10/04/18 00:00 10/04/18 02:00 10/04/18 02:00 10/04/18 00:05 10/04/18 02:00 Intake and Output: 10/03/18 10/04/18 18:59 06:59 Intake Total 680 Output Total 450 Balance 230 - Medications Medications: Current Medications Acetylcysteine (Acetylcysteine 20%) 4 ml INH RQ4 [facility] Last Admin: 10/03/18 20:30 Dose: Not Given Albuterol/Ipratropium (Duoneb 3 Mg/0.5 Mg (3 Ml) Ud) 3 ml INH RQ4 PRN PRN Reason: Shortness of Breath Ascorbic Acid (Vitamin C 500 Mg Tab) 1,000 mg NG DAILY [facility] Last Admin: 10/03/18 09:44 Dose: 1,000 mg Aspirin (Aspirin Chewable) 81 mg GT DAILY [facility] Last Admin: 10/03/18 09:44 Dose: 81 mg Dextrose (Dextrose 50% Inj) 0 ml IVP .STAT PRN; Protocol PRN Reason: Hypoglycemia Protocol Dextrose (Glutose 15) 0 gm PO .ONCE PRN; Protocol PRN Reason: Hypoglycemia Protocol Ergocalciferol (Drisdol 50,000 Intl Units Cap) 1 cap GT Q7D [facility] Stop: 10/06/18 19:16 Last Admin: 09/29/18 18:20 Dose: 1 cap Glucagon (Glucagen Diagnostic Kit) 0 mg IM .STAT PRN; Protocol PRN Reason: Hypoglycemia Protocol Meropenem 500 mg/ Sodium (Chloride) 100 mls @ 100 mls/hr IVPB Q8H [facility]; Protocol Last Admin: 10/03/18 23:04 Dose: 100 mls/hr Insulin Aspart (Novolog) 0 unit SC Q12H [facility]; Protocol Last Admin: 10/04/18 00:11 Dose: Not Given Lactobacillus Acidophilus (Bacid Acidophilus) 1 cap PEG Q12 [facility] Last Admin: 10/03/18 21:39 Dose: 1 cap Methimazole (Tapazole) 20 mg PO Q8 [facility] Last Admin: 10/03/18 21:39 Dose: 20 mg Modafinil (Provigil) 50 mg PO DAILY [facility] Last Admin: 10/03/18 09:44 Dose: 50 mg Multivitamins (Hexavitamin) 1 tab PEG DAILY [facility] Last Admin: 10/03/18 09:44 Dose: 1 tab Pantoprazole Sodium (Protonix Susp) 40 mg GT Q12H [facility] Last Admin: 10/03/18 21:40 Dose: 40 mg Tamsulosin HCl (Flomax) 0.4 mg PEG DAILY [facility] Last Admin: 10/03/18 09:44 Dose: 0.4 mg Vitamin A (Vitamin A & D Oint Ud Foilpak) 0.5 ea TOP BID [facility] Last Admin: 10/03/18 17:26 Dose: 0.5 ea - Labs Labs: 10/03/18 07:09 10/03/18 07:09 PT 12.9 SECONDS (9.7-12.2) H 10/02/18 06:10 INR 1.2 10/02/18 06:10 APTT 23 SECONDS (21-34) 10/02/18 06:10 Attending/Attestation - Attestation I have personally seen and examined this patient.: Yes I have fully participated in the care of the patient.: Yes I have reviewed all pertinent clinical information, including history, physical exam and plan: Yes Notes (Text): 10/04/18 02:55 This is a late entry. Care of this patient was gone over with resident Dr. Weinberg. North Nesbitt D.O.
[2018-09-29] MEDS: Multiple Vitamins Tab PEG SCH (10:20)
[2018-09-29] MEDS: Lactobacillus Acidophilus 500 MU Cap PEG SCH ×2 (10:20→21:00)
[2018-09-29] MEDS: Pantoprazole 40 mg Susp UD GT SCH ×2 (10:20→21:00)
[2018-09-29] MEDS: Vitamins A & D Oint UD Foilpak TOP SCH ×2 (10:21→17:56)
[2018-09-29] MEDS: Modafinil 50 MG TAB PO SCH (12:15)
[2018-09-29] MEDS: (Novolog) Insulin Aspart, Recombinant 100 u/ml 10 ml vial SC SCH ×2 (15:20)
[2018-09-29] MEDS: Ergocalciferol 50,000 Intl Units Cap GT SCH (18:20)
--- NOTE | 2018-09-30 00:22 | CP.PCM.PN ---
<Amrita Villegas - Last Filed: 09/30/18 00:20> Subjective - Date & Time of Evaluation Date of Evaluation: 09/30/18 Time of Evaluation: 00:20 - Subjective Subjective: Amrita Villegas PGY1 Progress Note for Dr. Nesbitt Pt was examined at bedside. No acute events. ROS unatainable at this time. Objective - Vital Signs/Intake and Output Vital Signs (last 24 hours): Temp Pulse Resp BP Pulse Ox 99.5 F 105 H 18 108/52 L 99 09/29/18 20:00 09/29/18 20:00 09/29/18 20:00 09/29/18 20:00 09/29/18 20:00 Intake and Output: 09/29/18 09/30/18 18:59 06:59 Intake Total 600 180 Balance 600 180 - Medications Medications: Current Medications Acetylcysteine (Acetylcysteine 20%) 4 ml INH RQ4 [facility] Last Admin: 09/29/18 19:25 Dose: 4 ml Albuterol/Ipratropium (Duoneb 3 Mg/0.5 Mg (3 Ml) Ud) 3 ml INH RQ4 PRN PRN Reason: Shortness of Breath Last Admin: 09/29/18 19:25 Dose: 3 ml Ascorbic Acid (Vitamin C 500 Mg Tab) 1,000 mg NG DAILY [facility] Last Admin: 09/29/18 10:00 Dose: 1,000 mg Aspirin (Aspirin Chewable) 81 mg GT DAILY [facility] Last Admin: 09/29/18 10:18 Dose: 81 mg Dextrose (Dextrose 50% Inj) 0 ml IVP .STAT PRN; Protocol PRN Reason: Hypoglycemia Protocol Dextrose (Glutose 15) 0 gm PO .ONCE PRN; Protocol PRN Reason: Hypoglycemia Protocol Ergocalciferol (Drisdol 50,000 Intl Units Cap) 1 cap GT Q7D [facility] Stop: 10/06/18 19:16 Last Admin: 09/29/18 18:20 Dose: 1 cap Glucagon (Glucagen Diagnostic Kit) 0 mg IM .STAT PRN; Protocol PRN Reason: Hypoglycemia Protocol Acyclovir 400 mg/ Sodium (Chloride) 100 mls @ 100 mls/hr IV Q8H [facility]; Protocol Stop: 10/02/18 10:31 Last Admin: 09/29/18 17:50 Dose: 100 mls/hr Insulin Aspart (Novolog) 0 unit SC Q12H [facility]; Protocol Last Admin: 09/29/18 15:20 Dose: 2 units Lactobacillus Acidophilus (Bacid Acidophilus) 1 cap PEG Q12 [facility] Last Admin: 09/29/18 21:00 Dose: 1 cap Methimazole (Tapazole) 20 mg PO Q8 [facility] Last Admin: 09/29/18 21:00 Dose: 20 mg Modafinil (Provigil) 50 mg PO DAILY [facility] Last Admin: 09/29/18 12:15 Dose: 50 mg Multivitamins (Hexavitamin) 1 tab PEG DAILY [facility] Last Admin: 09/29/18 10:20 Dose: 1 tab Pantoprazole Sodium (Protonix Susp) 40 mg GT Q12H [facility] Last Admin: 09/29/18 21:00 Dose: 40 mg Tamsulosin HCl (Flomax) 0.4 mg PEG DAILY [facility] Last Admin: 09/29/18 10:20 Dose: 0.4 mg Vitamin A (Vitamin A & D Oint Ud Foilpak) 0.5 ea TOP BID [facility] Last Admin: 09/29/18 17:56 Dose: 0.5 ea - Labs Labs: 09/29/18 06:10 09/29/18 06:10 PT 11.9 SECONDS (9.7-12.2) 09/04/18 06:22 INR 1.1 09/04/18 06:22 APTT 29 SECONDS (21-34) 09/02/18 05:48 - Additional Findings Additional findings: - Constitutional Appears: Non-toxic, No Acute Distress - Head Exam Head Exam: ATRAUMATIC, NORMOCEPHALIC - Eye Exam Eye Exam: EOMI - ENT Exam ENT Exam: Mucous Membranes Moist - Neck Exam Additional comments: trach - Respiratory Exam Respiratory Exam: Clear to Ausculation Bilateral. absent: Rales, Rhonchi, Wheezes Additional comments: on vent - Cardiovascular Exam Cardiovascular Exam: REGULAR RHYTHM, +S1, +S2 - GI/Abdominal Exam GI & Abdominal Exam: Soft, Normal Bowel Sounds. absent: Tenderness - Neurological Exam Neurological Exam: Awake. absent: Alert, Oriented x3 - Psychiatric Exam Psychiatric exam: Flat Affect - Skin Skin Exam: Dry, Intact Assessment and Plan - Assessment and Plan (Free Text) Assessment: 53yo F admitted originally to ICU for cardiac arrest, septic shock Plan: Septic Shock secondary to Pneumonia and Urinary Tract Infection New Pneumonia-->pseudomonas * WBC WNL. Patient's condition has been stable on vent, clinical picture remains about the same. Labs every other day. PRN straight cath for retention. * Infectious Disease (Dr. Brock) on board-->help appreciated * Patient is off antibiotics at this time * Meropenem d/c 08/27 * Maxipime 1gm [id number] (from 08/27/18 to 09/12/18) * Trach Aspirate: Psuedomonas * s/p bronchoscopy (08/23/18) * 08/23: Bronchial Washings: pseudomonas Aeruginosa * 08/23: Fungal Culture: Prelim: negative * 08/23: Mycobacterial culture: negative * s/p chest tube 09/06/18; removed 09/15 * Pleural fluid: no growth * Recent culture: * 08/25/18 Blood culture: no growth 5 days X 2 * 08/23/18 Blood culture: no growth after 5 days X 2 * 08/27/18 Blood culture: no growth after 5 days * 08/27/18 UA and Urine Culture: no growth * Salmonella, shigella, or campylobacteria: not detected. * Trachasp: Pseudomonas Aeruginosa-->sensitive to Cipro * 09/19 Urine culture: gram positive cocci * s/p Lumbar Puncture * Opening pressure: 21; normal no evidence of ICP * CSF Culture: No growth * No Mycobact nor fungal observed * HSV 1 DNA and HSV 2: not detected * no CSF growth * Discussed with Dr. Soniya Parekh, atraumatic tap. * Discussed with Dr. Brock, continue Acyclovir 700mg IV Q8H for 10 days to cover. Finish on 10/02. * Procalcitonin: 2.89 (08/28)-->0.33 (09/04)--->0.34 Shock Liver; Transminitis; resolving * GI has signed off * Hepatitis serology negative * Ammonia: normal * elevated INR--> vitamin K 08/24 * 08/24: off statin, benadryl, benzo, ambien, and micafungin (gave dose of 08/23) * Continue to monitor LFTs; suspected medication induced or related to low blood pressure * Gi (Dr. Murray) * discussed case with fellow 08/26/18 * Abd US shows bilateral pleural effusions, patent portal vein, no hydronephrosis, no GB stones or cholecystitis * CT Abdomen/pelvis (08/25/18): limited evaluated evaluation hepatic vein thrombosis. heterogenous attenuation of the liver. Anoxic Encephalopathy; unresolved; seems to be patients baseline * Code Blue 07/10 and 07/20 * Patient prior knowledge of 5 languages per but does not follow commands * CT head: no acute intracranial pathology. Age-related changes. no significant interval change. * suspect cognitive decline since second code blue * Brain MRI (09/08/18); no definite mass effect or suspicious extra axial c ollection. no evidence of acute or subacute brain infarction at this time. Borderline pattern of hydrocephalus * s/p Lumbar Puncture 09/15 * Opening pressure: 21; normal no evidence of ICP * CSF Culture: No growth * No Mycobact nor fungal observed * HSV 1 DNA and HSV 2: not detected chronic Respiratory Failure Pulmonary Edema Pseudomona Pneumonia s/p Trach * Patient having some respiratory distress this morning and ample secretions removed from trach via suction. Stat duoneb treatment given. Patient has Q4 dounebs and mucomist ordered. * Patient underwent tracheostomy 07/24/18, s/p bronchoscopy 08/23, s/p right chest tube insertion * Patient had tolerated trach collars thru Tuesday 08/14; however she has been on vent to trach. Fi02: 30 percent * Pulmonary (Dr. Maciel) on board-->assisting with weaning from trach on vent to trach collar * Duonebs 3ml Inh Q6H * s/p bronchoscopy (08/23/18) * Pseudomonas aerguinosa * dictated by dr maciel * 08/23: Bronchial Washings: pseudomonas Aeruginosa * 08/23: Fungal Culture: Prelim: negative * 08/23: Mycobacterial culture: prelim * s/p chest tube insertion (09/06/18) was removed 09/15 * pleural fluid: no growth * Chest physiotherapy Ventricular Tachycardia NSTEMI Apical Thrombus LLE DVT s/p IVC filter * ASA 81 daily restarted * Code Blue 07/10: SVT==>VT required amiodarone, magnesium, one shock delivered * Code Blue 07/20: vtach s/p amiodarone, fluid, calcium gluconate, required compressions and shock * S/p IVC filter 08/23/18 * Cardiology Dr Francisco on case help appreciated * No cath needed. * Medical management * No chemical anticoagulation in light of bleeding episodes (patient has dysfunction uterine bleeding required blood transfusions; Ob has been consulted earlier in the hospitalization to inpatient workup)-->recommending heparin 5000 unit subq8 (DVT ppx dose) and aspirin 81mg PO daily; likely thrombus is organized a month of anticoagulation; risk is due to bleeding against stroke * d/c Propranolol 5mg PO TID (hold SBP<100 and HR<60) * Eliquis d/c bleeding and anemia-->dvt ppx and aspirin * Echo discussed with Dr. Francisco, patient does have residual clot-->aware we cannot anticoagulate given heavy vaginal bleeding * H/H stable in 10's no vaginal bleeding noted since chemical anticoagulation d/c; c.w Aspirin 81mg PO daily VRE Urinary Tract Infection (resolved) * OFF Contact isolation Diabetes-->chronic * HgBA1c: 7.8 * Hypoglycemic protocol * held Lantus 15 units subcutaneous at bedtime Q12 since 08/23/18 * Hypoglycemic 08/23/18 AM * Accuchecks Q6H * Novolog sliding scale * off Crestor 5mg POqHS secondary to LFTs Acute on Chronic Renal Failure * Nephrology (Dr. Hyde) on board--> help appreciated-->has signed off Hyperthyroidism? Low TSH, and Free T4 Thyroid Storm * Note Thyroid studies taken before amiodarone was given (please advised this is not amiodarone induced her levels were abnormal prior) * Patient does not have prior thyroid history * Endocrinology (Dr. Gayle) on board help appreciated * Thyroid U/S 07/16/18: showed heterogenous thyroid with multiple nodules bilaterally. She will need outpatient FNA Bx of the complex Left Lobe cyst (please see full report) * Methimazole 20mg PO TID * off Propranolol 5 mg PO TID due to hypotension * Monitor LFTs Anemia Likely Secondary to Chronic Diseases Dysfunctional uterine bleeding * Iron normal, TIBC low, Iron Saturation normal, Ferritin normal * Stool occult blood negative * B12 normal * Folate Normal * Transfused 1 unit PRBC 07/22/18, 2 unit of PRBC 08/13/18 1 unit on 08/17/18, 1 unit 08/23/18 * Patient has been seen by OB Hospitalist; no contraindication to anticoagulation * recommend outpatient workup for vaginal bleeding * Case discussed with crew lead recommending against eliquis in light of bleeding; recommending for DVT ppx and aspirin if patient can tolerate it Vitamin D deficiency * 50,000 international units once a week (3 doses given so far) * Restart Vitamin D 50,000 IU once a week started on 08/18/18) Thrombocytopenia-->resolved * HIT/RUSTY were negative 13 mm Left Adrenal Nodule * As seen on CT Chest 07/16/[address] abdomen/pelvis * Will need outpatient follow up for cross sectional imaging for better characterization Hypernatremia (resolved) * Start free fluid washes 250ml Q6 via tube feeds * D5 Free water @ 100ml 09/23/18 Deconditioning * Patient needs continued PT/O * reposition q2h * Respiratory attempting to wean but remains on vent. * Brain MRI (09/08/18); no definite mass effect or suspicious extra axial collection. no evidence of acute or subacute brain infarction at this time. Borderline pattern of hydrocephalus * Patient unable to get LTAC given lack of insurance [employer] * Trazodone discontinued, EPS seem to have improved * Given Ativan 0.5mg IV X1 09/24 to reverse Prophylactic measure * Protonix 40mg GT BID * Lactobacillus 1 cap PO BID * MVI 1x/day * Vitamin C 1,000 NG 1x/day * s/p Trach and Peg * SCD on Right and contraindicated on Left due to DVT * Peg feedings * Pulmcar 40cc/hr * patient had frequent BMs on prior formula; no diarrhea; we have spoken with dietary to change it on 08/19/18 * PICC Line d/c due to coiling * Patient has midline access * Note: speak to patient in alexis to assess neurologic status-->she does follow sometimes * s/p bronchoscopy 08/23 * s/p IVC filter 08/23 * s/p LP 09/15 * s/p right chest tube insertion 09/06; removed 09/15 * patient is FULL CODE * Provigil 50mg PO daily started to promote wakefulness during the day. * Social work note (08/09/18): patient is undocumented, has not health insurance, dc planning will be at home with Disposition: Patient to continue Acyclovir to cover for encephalitis; HSV n egative, but patient to finish antiviral courser for coverage. Continue aggressive PT/OT <[place] Nesbitt - Last Filed: 10/04/18 02:54> Objective - Vital Signs/Intake and Output Vital Signs (last 24 hours): Temp Pulse Resp BP Pulse Ox 97.3 F L 90 19 93/67 L 100 10/04/18 00:00 10/04/18 02:00 10/04/18 02:00 10/04/18 00:05 10/04/18 02:00 Intake and Output: 10/03/18 10/04/18 18:59 06:59 Intake Total 680 Output Total 450 Balance 230 - Medications Medications: Current Medications Acetylcysteine (Acetylcysteine 20%) 4 ml INH RQ4 [facility] Last Admin: 10/03/18 20:30 Dose: Not Given Albuterol/Ipratropium (Duoneb 3 Mg/0.5 Mg (3 Ml) Ud) 3 ml INH RQ4 PRN PRN Reason: Shortness of Breath Ascorbic Acid (Vitamin C 500 Mg Tab) 1,000 mg NG DAILY [facility] Last Admin: 10/03/18 09:44 Dose: 1,000 mg Aspirin (Aspirin Chewable) 81 mg GT DAILY [facility] Last Admin: 10/03/18 09:44 Dose: 81 mg Dextrose (Dextrose 50% Inj) 0 ml IVP .STAT PRN; Protocol PRN Reason: Hypoglycemia Protocol Dextrose (Glutose 15) 0 gm PO .ONCE PRN; Protocol PRN Reason: Hypoglycemia Protocol Ergocalciferol (Drisdol 50,000 Intl Units Cap) 1 cap GT Q7D [facility] Stop: 10/06/18 19:16 Last Admin: 09/29/18 18:20 Dose: 1 cap Glucagon (Glucagen Diagnostic Kit) 0 mg IM .STAT PRN; Protocol PRN Reason: Hypoglycemia Protocol Meropenem 500 mg/ Sodium (Chloride) 100 mls @ 100 mls/hr IVPB Q8H [facility]; Protocol Last Admin: 10/03/18 23:04 Dose: 100 mls/hr Insulin Aspart (Novolog) 0 unit SC Q12H [facility]; Protocol Last Admin: 10/04/18 00:11 Dose: Not Given Lactobacillus Acidophilus (Bacid Acidophilus) 1 cap PEG Q12 [facility] Last Admin: 10/03/18 21:39 Dose: 1 cap Methimazole (Tapazole) 20 mg PO Q8 [facility] Last Admin: 10/03/18 21:39 Dose: 20 mg Modafinil (Provigil) 50 mg PO DAILY [facility] Last Admin: 10/03/18 09:44 Dose: 50 mg Multivitamins (Hexavitamin) 1 tab PEG DAILY [facility] Last Admin: 10/03/18 09:44 Dose: 1 tab Pantoprazole Sodium (Protonix Susp) 40 mg GT Q12H [facility] Last Admin: 10/03/18 21:40 Dose: 40 mg Tamsulosin HCl (Flomax) 0.4 mg PEG DAILY [facility] Last Admin: 10/03/18 09:44 Dose: 0.4 mg Vitamin A (Vitamin A & D Oint Ud Foilpak) 0.5 ea TOP BID [facility] Last Admin: 10/03/18 17:26 Dose: 0.5 ea - Labs Labs: 10/03/18 07:09 10/03/18 07:09 PT 12.9 SECONDS (9.7-12.2) H 10/02/18 06:10 INR 1.2 10/02/18 06:10 APTT 23 SECONDS (21-34) 10/02/18 06:10 Attending/Attestation - Attestation I have personally seen and examined this patient.: Yes I have fully participated in the care of the patient.: Yes I have reviewed all pertinent clinical information, including history, physical exam and plan: Yes Notes (Text): 10/04/18 02:54 This is a late entry. Care of this patient was gone over with resident Dr. Villegas. [place] Nesbitt D.O.
[2018-09-30] MEDS: Acetylcysteine 20% Inhal Soln (4ml) INH SCH ×5 (00:30→23:42)
[2018-09-30] MEDS: (Novolog) Insulin Aspart, Recombinant 100 u/ml 10 ml vial SC SCH ×2 (01:00→11:55)
[2018-09-30] MEDS: Acyclovir 400 MG in Sodium Chloride 0.9% 100 ML IV SCH ×3 (03:20→18:56)
[2018-09-30] MEDS: Modafinil 50 MG TAB PO SCH (11:01)
[2018-09-30] MEDS: Multiple Vitamins Tab PEG SCH (11:02)
[2018-09-30] MEDS: Vitamins A & D Oint UD Foilpak TOP SCH ×2 (11:02→18:55)
[2018-09-30] MEDS: Lactobacillus Acidophilus 500 MU Cap PEG SCH ×2 (11:02→21:57)
[2018-09-30] MEDS: Pantoprazole 40 mg Susp UD GT SCH ×2 (11:02→21:57)
[2018-09-30] MEDS: Albuterol-Ipratrop 3 mg / 0.5 (3 ml) UD INH PRN (16:30)
[2018-09-30 19:34] LABS: ABG ALLEN TEST UNABLE; ARTERIAL BLOOD GAS HCO3 21.7 mmol/L (21-28); ARTERIAL BLOOD GAS O2 SAT 94.4 % (95-98); ARTERIAL BLOOD GAS PCO2 35 mm/Hg (35-45); ARTERIAL BLOOD GAS PH 7.38 (7.35-7.45); ARTERIAL BLOOD GAS PO2 58 mm/Hg (80-100); ARTERIAL BLOOD GAS TCO2 21.8 mmol/L (22-28)
[2018-09-30] MEDS ORDERED: HYDROmorphone 0.5 mg/0.5 ml ISec IVP STA (20:02)
[2018-09-30 22:51] LABS: SQUAMOUS EPITHIAL 2 /hpf (0-5); URINE BACTERIA RARE (<OCC); URINE BILIRUBIN NEGATIVE (NEGATIVE); URINE BLOOD NEGATIVE (NEGATIVE); URINE CLARITY Hazy (Clear); URINE COLOR Yellow (YELLOW); URINE GLUCOSE (UA) NORMAL (Normal); URINE LEUKOCYTE ESTERASE TRACE Leu/uL (Negative); URINE PROTEIN NEGATIVE (NEGATIVE); URINE UROBILINOGEN NORMAL mg/dL (0.2-1.0)
--- NOTE | 2018-10-01 00:08 | CP.PCM.PN ---
<Amrita Villegas - Last Filed: 10/01/18 00:07> Subjective - Date & Time of Evaluation Date of Evaluation: 10/01/18 Time of Evaluation: 00:07 - Subjective Subjective: Amrita Villegas PGY1 Progress Note for Dr. Nesbitt Pt was examined at bedside. No acute events. ROS unatainable at this time. Objective - Vital Signs/Intake and Output Vital Signs (last 24 hours): Temp Pulse Resp BP Pulse Ox 99.1 F 102 H 27 H 112/93 H 95 09/30/18 20:00 09/30/18 20:00 09/30/18 20:00 09/30/18 20:00 09/30/18 20:00 Intake and Output: 09/30/18 10/01/18 18:59 06:59 Intake Total 480 Output Total 0 Balance 480 - Medications Medications: Current Medications Acetylcysteine (Acetylcysteine 20%) 4 ml INH RQ4 [facility]OLO Last Admin: 09/30/18 23:42 Dose: Not Given Albuterol/Ipratropium (Duoneb 3 Mg/0.5 Mg (3 Ml) Ud) 3 ml INH RQ4 PRN PRN Reason: Shortness of Breath Last Admin: 09/30/18 16:30 Dose: 3 ml Ascorbic Acid (Vitamin C 500 Mg Tab) 1,000 mg NG DAILY [facility] Last Admin: 09/30/18 11:01 Dose: 1,000 mg Aspirin (Aspirin Chewable) 81 mg GT DAILY [facility] Last Admin: 09/30/18 11:02 Dose: 81 mg Dextrose (Dextrose 50% Inj) 0 ml IVP .STAT PRN; Protocol PRN Reason: Hypoglycemia Protocol Dextrose (Glutose 15) 0 gm PO .ONCE PRN; Protocol PRN Reason: Hypoglycemia Protocol Ergocalciferol (Drisdol 50,000 Intl Units Cap) 1 cap GT Q7D [facility] Stop: 10/06/18 19:16 Last Admin: 09/29/18 18:20 Dose: 1 cap Glucagon (Glucagen Diagnostic Kit) 0 mg IM .STAT PRN; Protocol PRN Reason: Hypoglycemia Protocol Acyclovir 400 mg/ Sodium (Chloride) 100 mls @ 100 mls/hr IV Q8H [facility]; Protocol Stop: 10/02/18 10:31 Last Admin: 09/30/18 18:56 Dose: 100 mls/hr Insulin Aspart (Novolog) 0 unit SC Q12H [facility]; Protocol Last Admin: 09/30/18 11:55 Dose: 2 units Lactobacillus Acidophilus (Bacid Acidophilus) 1 cap PEG Q12 [facility] Last Admin: 09/30/18 21:57 Dose: 1 cap Methimazole (Tapazole) 20 mg PO Q8 [facility] Last Admin: 09/30/18 21:57 Dose: 20 mg Modafinil (Provigil) 50 mg PO DAILY [facility] Last Admin: 09/30/18 11:01 Dose: 50 mg Multivitamins (Hexavitamin) 1 tab PEG DAILY [facility] Last Admin: 09/30/18 11:02 Dose: 1 tab Pantoprazole Sodium (Protonix Susp) 40 mg GT Q12H [facility] Last Admin: 09/30/18 21:57 Dose: 40 mg Tamsulosin HCl (Flomax) 0.4 mg PEG DAILY [facility] Last Admin: 09/30/18 11:02 Dose: 0.4 mg Vitamin A (Vitamin A & D Oint Ud Foilpak) 0.5 ea TOP BID [facility] Last Admin: 09/30/18 18:55 Dose: 0.5 ea - Labs Labs: 09/29/18 06:10 09/29/18 06:10 PT 11.9 SECONDS (9.7-12.2) 09/04/18 06:22 INR 1.1 09/04/18 06:22 APTT 29 SECONDS (21-34) 09/02/18 05:48 - Additional Findings Additional findings: - Constitutional Appears: Non-toxic, No Acute Distress - Head Exam Head Exam: ATRAUMATIC, NORMOCEPHALIC - Eye Exam Eye Exam: EOMI - ENT Exam ENT Exam: Mucous Membranes Moist - Neck Exam Additional comments: trach - Respiratory Exam Respiratory Exam: Clear to Ausculation Bilateral. absent: Rales, Rhonchi, Wheezes Additional comments: on vent - Cardiovascular Exam Cardiovascular Exam: REGULAR RHYTHM, +S1, +S2 - GI/Abdominal Exam GI & Abdominal Exam: Soft, Normal Bowel Sounds. absent: Tenderness - Neurological Exam Neurological Exam: Awake. absent: Alert, Oriented x3 - Psychiatric Exam Psychiatric exam: Flat Affect - Skin Skin Exam: Dry, Intact Assessment and Plan - Assessment and Plan (Free Text) Assessment: 53yo F admitted originally to ICU for cardiac arrest, septic shock Plan: Septic Shock secondary to Pneumonia and Urinary Tract Infection New Pneumonia-->pseudomonas * WBC WNL. Patient's condition has been stable on vent, clinical picture remains about the same. Labs every other day. PRN straight cath for retention. * Infectious Disease (Dr. Brock) on board-->help appreciated * Patient is off antibiotics at this time * Meropenem d/c 08/27 * Maxipime 1gm [id number] (from 08/27/18 to 09/12/18) * Trach Aspirate: Psuedomonas * s/p bronchoscopy (08/23/18) * 08/23: Bronchial Washings: pseudomonas Aeruginosa * 08/23: Fungal Culture: Prelim: negative * 08/23: Mycobacterial culture: negative * s/p chest tube 09/06/18; removed 09/15 * Pleural fluid: no growth * Recent culture: * 08/25/18 Blood culture: no growth 5 days X 2 * 08/23/18 Blood culture: no growth after 5 days X 2 * 08/27/18 Blood culture: no growth after 5 days * 08/27/18 UA and Urine Culture: no growth * Salmonella, shigella, or campylobacteria: not detected. * Trachasp: Pseudomonas Aeruginosa-->sensitive to Cipro * 09/19 Urine culture: gram positive cocci * s/p Lumbar Puncture * Opening pressure: 21; normal no evidence of ICP * CSF Culture: No growth * No Mycobact nor fungal observed * HSV 1 DNA and HSV 2: not detected * no CSF growth * Discussed with Dr. Soniya Parekh, atraumatic tap. * Discussed with Dr. Brock, continue Acyclovir 700mg IV Q8H for 10 days to cover. Finish on 10/02. * Procalcitonin: 2.89 (08/28)-->0.33 (09/04)--->0.34 Shock Liver; Transminitis; resolving * GI has signed off * Hepatitis serology negative * Ammonia: normal * elevated INR--> vitamin K 08/24 * 08/24: off statin, benadryl, benzo, ambien, and micafungin (gave dose of 08/23) * Continue to monitor LFTs; suspected medication induced or related to low blood pressure * Gi (Dr. Murray) * discussed case with fellow 08/26/18 * Abd US shows bilateral pleural effusions, patent portal vein, no hydronephrosis, no GB stones or cholecystitis * CT Abdomen/pelvis (08/25/18): limited evaluated evaluation hepatic vein th rombosis. heterogenous attenuation of the liver. Anoxic Encephalopathy; unresolved; seems to be patients baseline * Code Blue 07/10 and 07/20 * Patient prior knowledge of 5 languages per but does not follow commands * CT head: no acute intracranial pathology. Age-related changes. no significant interval change. * suspect cognitive decline since second code blue * Brain MRI (09/08/18); no definite mass effect or suspicious extra axial collection. no evidence of acute or subacute brain infarction at this time. Borderline pattern of hydrocephalus * s/p Lumbar Puncture 09/15 * Opening pressure: 21; normal no evidence of ICP * CSF Culture: No growth * No Mycobact nor fungal observed * HSV 1 DNA and HSV 2: not detected chronic Respiratory Failure Pulmonary Edema Pseudomona Pneumonia s/p Trach * Patient having some respiratory distress this morning and ample secretions removed from trach via suction. Stat duoneb treatment given. Patient has Q4 dounebs and mucomist ordered. * Patient underwent tracheostomy 07/24/18, s/p bronchoscopy 08/23, s/p right chest tube insertion * Patient had tolerated trach collars thru Tuesday 08/14; however she has been on vent to trach. Fi02: 30 percent * Pulmonary (Dr. Maciel) on board-->assisting with weaning from trach on vent to trach collar * Duonebs 3ml Inh Q6H * s/p bronchoscopy (08/23/18) * Pseudomonas aerguinosa * dictated by dr maciel * 08/23: Bronchial Washings: pseudomonas Aeruginosa * 08/23: Fungal Culture: Prelim: negative * 08/23: Mycobacterial culture: prelim * s/p chest tube insertion (09/06/18) was removed 09/15 * pleural fluid: no growth * Chest physiotherapy Ventricular Tachycardia NSTEMI Apical Thrombus LLE DVT s/p IVC filter * ASA 81 daily restarted * Code Blue 07/10: SVT==>VT required amiodarone, magnesium, one shock delivered * Code Blue 07/20: vtach s/p amiodarone, fluid, calcium gluconate, required compressions and shock * S/p IVC filter 08/23/18 * Cardiology Dr Francisco on case help appreciated * No cath needed. * Medical management * No chemical anticoagulation in light of bleeding episodes (patient has dysfunction uterine bleeding required blood transfusions; Ob has been consulted earlier in the hospitalization to inpatient workup)-->recommending heparin 5000 unit subq8 (DVT ppx dose) and aspirin 81mg PO daily; likely thrombus is organized a month of anticoagulation; risk is due to bleeding against stroke * d/c Propranolol 5mg PO TID (hold SBP<100 and HR<60) * Eliquis d/c bleeding and anemia-->dvt ppx and aspirin * Echo discussed with Dr. Francisco, patient does have residual clot-->aware we cannot anticoagulate given heavy vaginal bleeding * H/H stable in 10's no vaginal bleeding noted since chemical anticoagulation d/c; c.w Aspirin 81mg PO daily VRE Urinary Tract Infection (resolved) * OFF Contact isolation Diabetes-->chronic * HgBA1c: 7.8 * Hypoglycemic protocol * held Lantus 15 units subcutaneous at bedtime Q12 since 08/23/18 * Hypoglycemic 08/23/18 AM * Accuchecks Q6H * Novolog sliding scale * off Crestor 5mg POqHS secondary to LFTs Acute on Chronic Renal Failure * Nephrology (Dr. Hyde) on board--> help appreciated-->has signed off Hyperthyroidism? Low TSH, and Free T4 Thyroid Storm * Note Thyroid studies taken before amiodarone was given (please advised this is not amiodarone induced her levels were abnormal prior) * Patient does not have prior thyroid history * Endocrinology (Dr. Gayle) on board help appreciated * Thyroid U/S 07/16/18: showed heterogenous thyroid with multiple nodules bilaterally. She will need outpatient FNA Bx of the complex Left Lobe cyst (please see full report) * Methimazole 20mg PO TID * off Propranolol 5 mg PO TID due to hypotension * Monitor LFTs Anemia Likely Secondary to Chronic Diseases Dysfunctional uterine bleeding * Iron normal, TIBC low, Iron Saturation normal, Ferritin normal * Stool occult blood negative * B12 normal * Folate Normal * Transfused 1 unit PRBC 07/22/18, 2 unit of PRBC 08/13/18 1 unit on 08/17/18, 1 unit 08/23/18 * Patient has been seen by OB Hospitalist; no contraindication to anticoagulation * recommend outpatient workup for vaginal bleeding * 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 recommending against eliquis in light of bleeding; recommending for DVT ppx and aspirin if patient can tolerate it Vitamin D deficiency * 50,000 international units once a week (3 doses given so far) * Restart Vitamin D 50,000 IU once a week started on 08/18/18) Thrombocytopenia-->resolved * HIT/RUSTY were negative 13 mm Left Adrenal Nodule * As seen on CT Chest 07/16/[address] abdomen/pelvis * Will need outpatient follow up for cross sectional imaging for better characterization Hypernatremia (resolved) * Start free fluid washes 250ml Q6 via tube feeds * D5 Free water @ 100ml 09/23/18 Deconditioning * Patient needs continued PT/O * reposition q2h * Respiratory attempting to wean but remains on vent. * Brain MRI (09/08/18); no definite mass effect or suspicious extra axial collection. no evidence of acute or subacute brain infarction at this time. Borderline pattern of hydrocephalus * Patient unable to get LTAC given lack of insurance T[employer] Dysk[employer]a * Trazodone discontinued, EPS seem to have improved * Given Ativan 0.5mg IV X1 09/24 to reverse Prophylactic measure * Protonix 40mg GT BID * Lactobacillus 1 cap PO BID * MVI 1x/day * Vitamin C 1,000 NG 1x/day * s/p Trach and Peg * SCD on Right and contraindicated on Left due to DVT * Peg feedings * Pulmcar 40cc/hr * patient had frequent BMs on prior formula; no diarrhea; we have spoken with dietary to change it on 08/19/18 * PICC Line d/c due to coiling * Patient has midline access * Note: speak to patient in alexis to assess neurologic status-->she does follow sometimes * s/p bronchoscopy 08/23 * s/p IVC filter 08/23 * s/p LP 09/15 * s/p right chest tube insertion 09/06; removed 09/15 * patient is FULL CODE * Provigil 50mg PO daily started to promote wakefulness during the day. * Social work note (08/09/18): patient is undocumented, has not health insurance, dc planning will be at home with Disposition: Patient to continue Acyclovir to cover for encephalitis; HSV negative, but patient to finish antiviral courser for coverage. Continue aggressive PT/OT <[place] Nesbitt - Last Filed: 10/01/18 20:13> Objective - Vital Signs/Intake and Output Vital Signs (last 24 hours): Temp Pulse Resp BP Pulse Ox 97.4 F L 96 H 16 127/76 100 10/01/18 16:00 10/01/18 08:00 10/01/18 08:00 10/01/18 16:00 10/01/18 12:00 Intake and Output: 10/01/18 10/02/18 18:59 06:59 Intake Total 1280 Balance 1280 - Medications Medications: Current Medications Acetylcysteine (Acetylcysteine 20%) 4 ml INH RQ4 [facility] Last Admin: 10/01/18 15:52 Dose: 4 ml Albuterol/Ipratropium (Duoneb 3 Mg/0.5 Mg (3 Ml) Ud) 3 ml INH RQ4 PRN PRN Reason: Shortness of Breath Last Admin: 10/01/18 15:52 Dose: 3 ml Ascorbic Acid (Vitamin C 500 Mg Tab) 1,000 mg NG DAILY [facility] Last Admin: 10/01/18 10:05 Dose: 1,000 mg Aspirin (Aspirin Chewable) 81 mg GT DAILY [facility] Last Admin: 10/01/18 10:05 Dose: 81 mg Dextrose (Dextrose 50% Inj) 0 ml IVP .STAT PRN; Protocol PRN Reason: Hypoglycemia Protocol Dextrose (Glutose 15) 0 gm PO .ONCE PRN; Protocol PRN Reason: Hypoglycemia Protocol Ergocalciferol (Drisdol 50,000 Intl Units Cap) 1 cap GT Q7D [facility] Stop: 10/06/18 19:16 Last Admin: 09/29/18 18:20 Dose: 1 cap Glucagon (Glucagen Diagnostic Kit) 0 mg IM .STAT PRN; Protocol PRN Reason: Hypoglycemia Protocol Acyclovir 400 mg/ Sodium (Chloride) 100 mls @ 100 mls/hr IV Q8H [facility]; Protocol Stop: 10/02/18 10:31 Last Admin: 10/01/18 17:29 Dose: 100 mls/hr Meropenem 500 mg/ Sodium (Chloride) 100 mls @ 100 mls/hr IVPB Q8H [facility]; Protocol Last Admin: 10/01/18 16:28 Dose: 100 mls/hr Insulin Aspart (Novolog) 0 unit SC Q12H [facility]; Protocol Last Admin: 10/01/18 12:14 Dose: 2 units Lactobacillus Acidophilus (Bacid Acidophilus) 1 cap PEG Q12 [facility] Last Admin: 10/01/18 10:05 Dose: 1 cap Methimazole (Tapazole) 20 mg PO Q8 [facility] Last Admin: 10/01/18 13:15 Dose: 20 mg Modafinil (Provigil) 50 mg PO DAILY [facility] Last Admin: 10/01/18 10:05 Dose: 50 mg Multivitamins (Hexavitamin) 1 tab PEG DAILY [facility] Last Admin: 10/01/18 10:05 Dose: 1 tab Pantoprazole Sodium (Protonix Susp) 40 mg GT Q12H [facility] Last Admin: 10/01/18 10:05 Dose: 40 mg Tamsulosin HCl (Flomax) 0.4 mg PEG DAILY [facility] Last Admin: 10/01/18 10:05 Dose: 0.4 mg Vitamin A (Vitamin A & D Oint Ud Foilpak) 0.5 ea TOP BID [facility] Last Admin: 10/01/18 17:16 Dose: 0.5 ea - Labs Labs: 10/01/18 06:05 10/01/18 06:05 PT 11.9 SECONDS (9.7-12.2) 09/04/18 06:22 INR 1.1 09/04/18 06:22 APTT 29 SECONDS (21-34) 09/02/18 05:48 Attending/Attestation - Attestation I have personally seen and examined this patient.: Yes I have fully participated in the care of the patient.: Yes I have reviewed all pertinent clinical information, including history, physical exam and plan: Yes Notes (Text): 10/01/18 19:45 Patient was seen and examined at 2:30 PM 10/01/18 Large right pleural effusion noted on most recent chest x ray. She was started back up on Meropenem 500 mg IV Q8H Consult placed for Interventional Radiology Dr. Sergio Chavis for Thoracentesis of Right Pleural Effusion. ICU Nurse Luz attempted to call Dr. Chavis's office but voicemail could not be left as it was full. I will reach out to his office in the morning 10/02/18. I called patient's but Andrade [phone] to update him but no voicemail could be left. North Nesbitt D.O.
[2018-10-01] MEDS: (Novolog) Insulin Aspart, Recombinant 100 u/ml 10 ml vial SC SCH ×2 (00:30→12:14)
[2018-10-01] MEDS: Acyclovir 400 MG in Sodium Chloride 0.9% 100 ML IV SCH ×3 (01:39→17:29)
[2018-10-01 06:14] LABS: BASO % 0.5 % (0.0-2.0); EOS # 0.3 K/uL (0.0-0.7); EOS % 3.3 % (0.0-4.0); HEMOGLOBIN 8.5 g/dL (11.0-16.0); LYMPH # 1.4 K/uL (1.0-4.3); LYMPH % 15.5 % (20.0-40.0); MEAN CELL VOLUME 90.2 fL (81.0-99.0); MEAN CORPUSCULAR HEMOGLOBIN 30.8 pg (27.0-31.0); MEAN CORPUSCULAR HGB CONC 34.1 g/dL (33.0-37.0); MEAN PLATELET VOLUME 8.5 fL (7.2-11.7); MONO # 0.4 K/uL (0.0-0.8); MONO % 4.9 % (0.0-10.0); NEUT # 6.7 K/uL (1.8-7.0); NEUT % 75.8 % (50.0-75.0); NRBC % 0.1 % (0.0-2.0); RBC 2.77 Mil/uL (3.80-5.20); RED CELL DISTRIBUTION WIDTH 18.1 % (11.5-14.5); WHITE BLOOD COUNT 8.8 K/uL (4.8-10.8)
[2018-10-01 06:40] LABS: ALB/GLOB RATIO 0.8 (1.0-2.1); ALBUMIN 2.8 g/dL (3.5-5.0); ALT/SGPT 48 U/L (9-52); AST/SGOT 29 U/L (14-36); BLOOD UREA NITROGEN 31 mg/dL (7-17); CALCIUM 8.7 mg/dl (8.6-10.4); GFR NON-AFRICAN AMERICAN > 60
[2018-10-01] MEDS: Acetylcysteine 20% Inhal Soln (4ml) INH SCH ×4 (07:30→23:31)
[2018-10-01] MEDS: Vitamins A & D Oint UD Foilpak TOP SCH ×2 (10:04→17:16)
[2018-10-01] MEDS: Multiple Vitamins Tab PEG SCH (10:05)
[2018-10-01] MEDS: Lactobacillus Acidophilus 500 MU Cap PEG SCH ×2 (10:05→21:33)
[2018-10-01] MEDS: Modafinil 50 MG TAB PO SCH (10:05)
[2018-10-01] MEDS: Pantoprazole 40 mg Susp UD GT SCH ×2 (10:05→21:33)
--- NOTE | 2018-10-01 10:51 | RAD ---
Date of service: 09/30/2018 HISTORY: Tracheostomy. Course Breath Sounds Exam COMPARISON: 09/25/2018. FINDINGS: There is stable position of the tracheostomy tube. The right PICC line terminates in the axillary vein. LUNGS: The lungs are well inflated. There is interval development of diffuse haziness in the lungs, worse on the right. There is moderate pulmonary venous congestion. PLEURA: There is loculated right pleural effusion along the right lateral chest wall. CARDIOVASCULAR: The heart is normal in size. No aortic atherosclerotic calcification present. OSSEOUS STRUCTURES: Within normal limits for the patient's age. VISUALIZED UPPER ABDOMEN: Normal. OTHER FINDINGS: None. IMPRESSION: Interval development of pleural effusions with a loculated component along the right lateral chest wall. Moderate pulmonary venous congestion. Underlying pulmonary edema especially in the right lung is also a consideration. Follow-up after medical management is recommended to ensure complete resolution.
[2018-10-01] MEDS: Albuterol-Ipratrop 3 mg / 0.5 (3 ml) UD INH PRN ×2 (15:52→19:54)
[2018-10-01] MEDS: Meropenem 500 MG in Sodium Chloride 0.9% 100 ML IVPB SCH ×2 (16:28→23:11)
[2018-10-02] MEDS: (Novolog) Insulin Aspart, Recombinant 100 u/ml 10 ml vial SC SCH ×2 (00:29→12:39)
[2018-10-02] MEDS: Acyclovir 400 MG in Sodium Chloride 0.9% 100 ML IV SCH ×2 (01:41→09:51)
[2018-10-02 06:33] LABS: INR 1.2; PROTHROMBIN TIME 12.9 SECONDS (9.7-12.2)
[2018-10-02] MEDS: Acetylcysteine 20% Inhal Soln (4ml) INH SCH ×4 (07:34→19:12)
[2018-10-02] MEDS: Meropenem 500 MG in Sodium Chloride 0.9% 100 ML IVPB SCH ×2 (08:32→16:39)
[2018-10-02] MEDS ORDERED: Albuterol-Ipratrop 3 mg / 0.5 (3 ml) UD INH PRN (09:11)
[2018-10-02] MEDS ORDERED: (Novolog) Insulin Aspart, Recombinant 100 u/ml 10 ml vial SC SCH (09:15)
[2018-10-02] MEDS: Multiple Vitamins Tab PEG SCH (09:49)
--- NOTE | 2018-10-02 09:49 | CP.PCM.PN ---
<Elijah Weinberg - Last Filed: 10/02/18 17:14> Subjective - Date & Time of Evaluation Date of Evaluation: 10/02/18 Time of Evaluation: 09:50 - Subjective Subjective: PGY-[address] [place] Patient seen and examined at bedside. Patient has developed new loculted pleural effusion on chest xray. She remains on vent. Restarted on antibiotics (Meropenem) and IR consult placed for drainage. We will make sure to keep patient's informed of all ongoing medical issues. ROS unable to be obtained. Update 14:10: s/p IR thoracentesis - drained 1 L brittany colored fluid. Follow up repeat CXR. Objective - Vital Signs/Intake and Output Vital Signs (last 24 hours): Temp Pulse Resp BP Pulse Ox 98 F 86 13 96/53 L 100 10/02/18 04:00 10/02/18 04:19 10/02/18 04:19 10/02/18 04:19 10/02/18 04:19 Intake and Output: 10/02/18 10/02/18 06:59 18:59 Intake Total 1180 Output Total 400 Balance 780 - Medications Medications: Current Medications Acetylcysteine (Acetylcysteine 20%) 4 ml INH RQ4 MANOLO Albuterol/Ipratropium (Duoneb 3 Mg/0.5 Mg (3 Ml) Ud) 3 ml INH RQ4 PRN PRN Reason: Shortness of Breath Ascorbic Acid (Vitamin C 500 Mg Tab) 1,000 mg NG DAILY MANOLO Aspirin (Aspirin Chewable) 81 mg GT DAILY MANOLO Dextrose (Dextrose 50% Inj) 0 ml IVP .STAT PRN; Protocol PRN Reason: Hypoglycemia Protocol Dextrose (Glutose 15) 0 gm PO .ONCE PRN; Protocol PRN Reason: Hypoglycemia Protocol Ergocalciferol (Drisdol 50,000 Intl Units Cap) 1 cap GT Q7D MANOLO Stop: 10/06/18 19:16 Last Admin: 09/29/18 18:20 Dose: 1 cap Glucagon (Glucagen Diagnostic Kit) 0 mg IM .STAT PRN; Protocol PRN Reason: Hypoglycemia Protocol Acyclovir 400 mg/ Sodium (Chloride) 100 mls @ 100 mls/hr IV Q8H MANOLO; Protocol Stop: 10/02/18 10:31 Last Admin: 10/02/18 01:41 Dose: 100 mls/hr Meropenem 500 mg/ Sodium (Chloride) 100 mls @ 100 mls/hr IVPB Q8H MANOLO; Protocol Last Admin: 10/02/18 08:32 Dose: 100 mls/hr Insulin Aspart (Novolog) 0 unit SC Q12H ON LICENSE OF [facility]; Protocol Lactobacillus Acidophilus (Bacid Acidophilus) 1 cap PEG Q12 MANOLO Last Admin: 10/01/18 21:33 Dose: 1 cap Methimazole (Tapazole) 20 mg PO Q8 MANOLO Last Admin: 10/02/18 05:10 Dose: 20 mg Modafinil (Provigil) 50 mg PO DAILY ON LICENSE OF [facility] Multivitamins (Hexavitamin) 1 tab PEG DAILY MANOLO Pantoprazole Sodium (Protonix Susp) 40 mg GT Q12H MANOLO Tamsulosin HCl (Flomax) 0.4 mg PEG DAILY ON LICENSE OF [facility] Vitamin A (Vitamin A & D Oint Ud Foilpak) 0.5 ea TOP BID MANOLO - Labs Labs: 10/01/18 06:05 10/01/18 06:05 PT 12.9 SECONDS (9.7-12.2) H 10/02/18 06:10 INR 1.2 10/02/18 06:10 APTT 23 SECONDS (21-34) 10/02/18 06:10 - Constitutional Appears: Older Than Stated Age, Chronically Ill - Head Exam Head Exam: ATRAUMATIC, NORMOCEPHALIC - Eye Exam Eye Exam: EOMI - ENT Exam ENT Exam: Mucous Membranes Moist - Neck Exam Additional comments: trach in placed - Respiratory Exam Respiratory Exam: Decreased Breath Sounds, Rales - Cardiovascular Exam Cardiovascular Exam: REGULAR RHYTHM, +S1, +S2 - GI/Abdominal Exam GI & Abdominal Exam: Soft, Normal Bowel Sounds. absent: Tenderness - Extremities Exam Extremities Exam: absent: Pedal Edema, Tenderness - Neurological Exam Neurological Exam: Awake. absent: Alert, Oriented x3 - Psychiatric Exam Psychiatric exam: Flat Affect - Skin Skin Exam: Dry, Intact Assessment and Plan - Assessment and Plan (Free Text) Assessment: New Loculated Pleural Effusion on CXR - Chest XR 10/01: Interval development of pleural effusions with loculated component along the right lateral chest wall. Moderate pulmonary venous congestion. Underlying pulmonary edema especially in the right lung is also a consideration. Follow up after medical management is recommended to ensure complete resolution. - IR consulted, Dr. Chavis, for drainage - Patient restarted on ABx - -Meropenem 500mg IV Q8 - F/u repeat chest x-rays Septic Shock secondary to Pneumonia and Urinary Tract Infection New Pneumonia-->pseudomonas * WBC WNL. Labs every other day. PRN straight cath for retention. * Infectious Disease (Dr. Brock) on board-->help appreciated * Patient is off antibiotics at this time * Meropenem d/c 08/27 * Maxipime 1gm [id number] (from 08/27/18 to 09/12/18) * Trach Aspirate: Psuedomonas * s/p bronchoscopy (08/23/18) * 08/23: Bronchial Washings: pseudomonas Aeruginosa * 08/23: Fungal Culture: Prelim: negative * 08/23: Mycobacterial culture: negative * s/p chest tube 09/06/18; removed 09/15 * Pleural fluid: no growth * Recent culture: * 08/25/18 Blood culture: no growth 5 days X 2 * 08/23/18 Blood culture: no growth after 5 days X 2 * 08/27/18 Blood culture: no growth after 5 days * 08/27/18 UA and Urine Culture: no growth * Salmonella, shigella, or campylobacteria: not detected. * Trachasp: Pseudomonas Aeruginosa-->sensitive to Cipro * 09/19 Urine culture: gram positive cocci * s/p Lumbar Puncture * Opening pressure: 21; normal no evidence of ICP * CSF Culture: No growth * No Mycobact nor fungal observed * HSV 1 DNA and HSV 2: not detected * no CSF growth * Discussed with Dr. Soniya Parekh, atraumatic tap. * Discussed with Dr. Brock, continue Acyclovir 700mg IV Q8H for 10 days to cover. Finish on 10/02. * Procalcitonin: 2.89 (08/28)-->0.33 (09/04)--->0.34 Shock Liver; Transminitis; resolving * GI has signed off * Hepatitis serology negative * Ammonia: normal * elevated INR--> vitamin K 08/24 * 08/24: off statin, benadryl, benzo, ambien, and micafungin (gave dose of 08/23) * Continue to monitor LFTs; suspected medication induced or related to low blood pressure * Gi (Dr. Murray) * discussed case with fellow 08/26/18 * Abd US shows bilateral pleural effusions, patent portal vein, no hydronephrosis, no GB stones or cholecystitis * CT Abdomen/pelvis (08/25/18): limited evaluated evaluation hepatic vein thrombosis. heterogenous attenuation of the liver. Anoxic Encephalopathy; unresolved; seems to be patients baseline * Code Blue 07/10 and 07/20 * Patient prior knowledge of 5 languages per but does not follow commands * CT head: no acute intracranial pathology. Age-related changes. no significant interval change. * suspect cognitive decline since second code blue * Brain MRI (09/08/18); no definite mass effect or suspicious extra axial collection. no evidence of acute or subacute brain infarction at this time. Borderline pattern of hydrocephalus * s/p Lumbar Puncture 09/15 * Opening pressure: 21; normal no evidence of ICP * CSF Culture: No growth * No Mycobact nor fungal observed * HSV 1 DNA and HSV 2: not detected chronic Respiratory Failure Pulmonary Edema Pseudomona Pneumonia s/p Trach * Patient having some respiratory distress this morning and ample secretions removed from trach via suction. Stat duoneb treatment given. Patient has Q4 dounebs and mucomist ordered. * Patient underwent tracheostomy 07/24/18, s/p bronchoscopy 08/23, s/p right chest tube insertion * Patient had tolerated trach collars thru Tuesday 08/14; however she has been on vent to trach. Fi02: 30 percent * Pulmonary (Dr. Lozada) on board-->assisting with weaning from trach on vent to trach collar * Duonebs 3ml Inh Q6H * s/p bronchoscopy (08/23/18) * Pseudomonas aerguinosa * dictated by dr lozada * 08/23: Bronchial Washings: pseudomonas Aeruginosa * 08/23: Fungal Culture: Prelim: negative * 08/23: Mycobacterial culture: prelim * s/p chest tube insertion (09/06/18) was removed 09/15 * pleural fluid: no growth * Chest physiotherapy Ventricular Tachycardia NSTEMI Apical Thrombus LLE DVT s/p IVC filter * ASA 81 daily restarted * Code Blue 07/10: SVT==>VT required amiodarone, magnesium, one shock delivered * Code Blue 07/20: vtach s/p amiodarone, fluid, calcium gluconate, required compressions and shock * S/p IVC filter 08/23/18 * Cardiology Dr Francisco on case help appreciated * No cath needed. * Medical management * No chemical anticoagulation in light of bleeding episodes (patient has dysfunction uterine bleeding required blood transfusions; Ob has been consulted earlier in the hospitalization to inpatient workup)-->recommending heparin 5000 unit subq8 (DVT ppx dose) and aspirin 81mg PO daily; likely thrombus is organized a month of anticoagulation; risk is due to bleeding against stroke * d/c Propranolol 5mg PO TID (hold SBP<100 and HR<60) * Eliquis d/c bleeding and anemia-->dvt ppx and aspirin * Echo discussed with Dr. Francisco, patient does have residual clot-->aware we cannot anticoagulate given heavy vaginal bleeding * H/H stable in 10's no vaginal bleeding noted since chemical anticoagulation d/c; c.w Aspirin 81mg PO daily VRE Urinary Tract Infection (resolved) * OFF Contact isolation Diabetes-->chronic * HgBA1c: 7.8 * Hypoglycemic protocol * held Lantus 15 units subcutaneous at bedtime Q12 since 08/23/18 * Hypoglycemic 08/23/18 AM * Accuchecks Q6H * Novolog sliding scale * off Crestor 5mg POqHS secondary to LFTs Acute on Chronic Renal Failure * Nephrology (Dr. Hyde) on board--> help appreciated-->has signed off Hyperthyroidism? Low TSH, and Free T4 Thyroid Storm * Note Thyroid studies taken before amiodarone was given (please advised this is not amiodarone induced her levels were abnormal prior) * Patient does not have prior thyroid history * Endocrinology (Dr. Gayle) on board help appreciated * Thyroid U/S 07/16/18: showed heterogenous thyroid with multiple nodules bilaterally. She will need outpatient FNA Bx of the complex Left Lobe cyst (please see full report) * Methimazole 20mg PO TID * off Propranolol 5 mg PO TID due to hypotension * Monitor LFTs Anemia Likely Secondary to Chronic Diseases Dysfunctional uterine bleeding * Iron normal, TIBC low, Iron Saturation normal, Ferritin normal * Stool occult blood negative * B12 normal * Folate Normal * Transfused 1 unit PRBC 07/22/18, 2 unit of PRBC 08/13/18 1 unit on 08/17/18, 1 unit 08/23/18 * Patient has been seen by OB Hospitalist; no contraindication to anticoagulation * recommend outpatient workup for vaginal bleeding * Case discussed with linen sorter recommending against eliquis in light of bleeding; recommending for DVT ppx and aspirin if patient can tolerate it Vitamin D deficiency * 50,000 international units once a week (3 doses given so far) * Restart Vitamin D 50,000 IU once a week started on 08/18/18) Thrombocytopenia-->resolved * HIT/RUSTY were negative 13 mm Left Adrenal Nodule * As seen on CT Chest 07/16/[address] abdomen/pelvis * Will need outpatient follow up for cross sectional imaging for better characterization Hypernatremia (resolved) * Start free fluid washes 250ml Q6 via tube feeds * D5 Free water @ 100ml 09/23/18 Deconditioning * Patient needs continued PT/O * reposition q2h * Respiratory attempting to wean but remains on vent. * Brain MRI (09/08/18); no definite mass effect or suspicious extra axial collection. no evidence of acute or subacute brain infarction at this time. Borderline pattern of hydrocephalus * Patient unable to get LTAC given lack of insurance Tardive Dyskinesa * Trazodone discontinued, EPS seem to have improved * Given Ativan 0.5mg IV X1 09/24 to reverse Prophylactic measure * Protonix 40mg GT BID * Lactobacillus 1 cap PO BID * MVI 1x/day * Vitamin C 1,000 NG 1x/day * s/p Trach and Peg * SCD on Right and contraindicated on Left due to DVT * Peg feedings * Pulmcar 40cc/hr * patient had frequent BMs on prior formula; no diarrhea; we have spoken with dietary to change it on 08/19/18 * PICC Line d/c due to coiling * Patient has midline access * Note: speak to patient in alexis to assess neurologic status-->she does follow sometimes * s/p bronchoscopy 08/23 * s/p IVC filter 08/23 * s/p LP 09/15 * s/p right chest tube insertion 09/06; removed 09/15 * patient is FULL CODE * Provigil 50mg PO daily started to promote wakefulness during the day. * Social work note (08/09/18): patient is undocumented, has not health insurance, dc planning will be at home with Disposition: Patient to continue Acyclovir to cover for encephalitis; HSV negative, but patient to finish antiviral courser for coverage. Continue aggressive PT/OT <[place] - Last Filed: 10/04/18 02:54> Objective - Vital Signs/Intake and Output Vital Signs (last 24 hours): Temp Pulse Resp BP Pulse Ox 97.3 F L 90 19 93/67 L 100 10/04/18 00:00 10/04/18 02:00 10/04/18 02:00 10/04/18 00:05 10/04/18 02:00 Intake and Output: 10/03/18 10/04/18 18:59 06:59 Intake Total 680 Output Total 450 Balance 230 - Medications Medications: Current Medications Acetylcysteine (Acetylcysteine 20%) 4 ml INH RQ4 MANOLO Last Admin: 10/03/18 20:30 Dose: Not Given Albuterol/Ipratropium (Duoneb 3 Mg/0.5 Mg (3 Ml) Ud) 3 ml INH RQ4 PRN PRN Reason: Shortness of Breath Ascorbic Acid (Vitamin C 500 Mg Tab) 1,000 mg NG DAILY MANOLO Last Admin: 10/03/18 09:44 Dose: 1,000 mg Aspirin (Aspirin Chewable) 81 mg GT DAILY MANOLO Last Admin: 10/03/18 09:44 Dose: 81 mg Dextrose (Dextrose 50% Inj) 0 ml IVP .STAT PRN; Protocol PRN Reason: Hypoglycemia Protocol Dextrose (Glutose 15) 0 gm PO .ONCE PRN; Protocol PRN Reason: Hypoglycemia Protocol Ergocalciferol (Drisdol 50,000 Intl Units Cap) 1 cap GT Q7D MANOLO Stop: 10/06/18 19:16 Last Admin: 09/29/18 18:20 Dose: 1 cap Glucagon (Glucagen Diagnostic Kit) 0 mg IM .STAT PRN; Protocol PRN Reason: Hypoglycemia Protocol Meropenem 500 mg/ Sodium (Chloride) 100 mls @ 100 mls/hr IVPB Q8H MANOLO; Protocol Last Admin: 10/03/18 23:04 Dose: 100 mls/hr Insulin Aspart (Novolog) 0 unit SC Q12H MANOLO; Protocol Last Admin: 10/04/18 00:11 Dose: Not Given Lactobacillus Acidophilus (Bacid Acidophilus) 1 cap PEG Q12 MANOLO Last Admin: 10/03/18 21:39 Dose: 1 cap Methimazole (Tapazole) 20 mg PO Q8 ON LICENSE OF [facility] Last Admin: 10/03/18 21:39 Dose: 20 mg Modafinil (Provigil) 50 mg PO DAILY ON LICENSE OF [facility] Last Admin: 10/03/18 09:44 Dose: 50 mg Multivitamins (Hexavitamin) 1 tab PEG DAILY ON LICENSE OF [facility] Last Admin: 10/03/18 09:44 Dose: 1 tab Pantoprazole Sodium (Protonix Susp) 40 mg GT Q12H ON LICENSE OF [facility] Last Admin: 10/03/18 21:40 Dose: 40 mg Tamsulosin HCl (Flomax) 0.4 mg PEG DAILY ON LICENSE OF [facility] Last Admin: 10/03/18 09:44 Dose: 0.4 mg Vitamin A (Vitamin A & D Oint Ud Foilpak) 0.5 ea TOP BID ON LICENSE OF [facility] Last Admin: 10/03/18 17:26 Dose: 0.5 ea - Labs Labs: 10/03/18 07:09 10/03/18 07:09 PT 12.9 SECONDS (9.7-12.2) H 10/02/18 06:10 INR 1.2 10/02/18 06:10 APTT 23 SECONDS (21-34) 10/02/18 06:10 Attending/Attestation - Attestation I have personally seen and examined this patient.: Yes I have fully participated in the care of the patient.: Yes I have reviewed all pertinent clinical information, including history, physical exam and plan: Yes Notes (Text): 10/04/18 02:53 This is a late entry. Care of this patient was gone over with resident Dr. Weinberg. [place] D.O.
[2018-10-02] MEDS: Vitamins A & D Oint UD Foilpak TOP SCH ×2 (09:50→18:48)
[2018-10-02] MEDS: Modafinil 50 MG TAB PO SCH (09:50)
[2018-10-02] MEDS: Pantoprazole 40 mg Susp UD GT SCH ×2 (09:50→21:09)
[2018-10-02] MEDS: Lactobacillus Acidophilus 500 MU Cap PEG SCH ×2 (09:51→21:30)
[2018-10-02] MEDS ORDERED: Lidocaine Hydrochloride 10 ML INJ ONE (13:32)
--- NOTE | 2018-10-02 13:57 | PCM.SURG1 ---
Surgeon's Initial Post Op Note - Surgeon's Notes Surgeon: Sergio Chavis MD Senior Sales Assistant: NONE Type of Anesthesia: Local Pre-Operative Diagnosis: Right pleural effusion Operative Findings: US showed moderate right effusion and a small left effusion Post-Operative Diagnosis: Right pleural effusion Operation Performed: US guided right thoracentesis Specimen/Specimens Removed: 1 liter of brittany colored fluid Estimated Blood Loss: EBL {In ML}: 0 Blood Products Given: N/A Drains Used: No Drains Post-Op Condition: Poor Date of Surgery/Procedure: 10/02/18 Time of Surgery/Procedure: 13:55
--- NOTE | 2018-10-02 14:44 | RAD ---
HISTORY: Status post right thoracentesis COMPARISON: Chest x-ray performed 10/02/13 at 1304 hr TECHNIQUE: Chest, one view. FINDINGS: Tracheostomy tube. Right-sided PICC terminates at the level of the axilla, likely within the axillary vein. LUNGS: Small left-sided pleural effusion and/or consolidation. Haziness within the left hemithorax may be related to edema/infection as well as layering effusion. No definite pneumothorax. Biapical pleural thickening. Tubing external to the patient obscures evaluation of the right lung apex. CARDIOVASCULAR: Cardiomegaly. Faint atherosclerotic calcification present. OSSEOUS STRUCTURES: No acute osseous abnormality identified. VISUALIZED UPPER ABDOMEN: Unremarkable. OTHER FINDINGS: None. IMPRESSION: Small left-sided pleural effusion and/or consolidation. Haziness within the left hemithorax may be related to edema/infection as well as layering effusion. Tracheostomy tube.Right-sided PICC terminates at the level of the axilla, likely within the axillary vein.
--- NOTE | 2018-10-02 16:50 | RAD ---
HISTORY: b/l pleural effusion COMPARISON: Chest x-ray performed 09/30/18 TECHNIQUE: Chest, one view. FINDINGS: Tracheostomy tube. Examination limited by habitus and hypoinflation. Right-sided PICC extends to the level of the right axilla. LUNGS: Bilateral pleural effusions/edema. No definite pneumothorax. CARDIOVASCULAR: Heart size appears top normal. No significant atherosclerotic calcification present. OSSEOUS STRUCTURES: Degenerative changes. VISUALIZED UPPER ABDOMEN: Unremarkable. OTHER FINDINGS: None. IMPRESSION: Tracheostomy tube. Right-sided PICC extends to the axilla. Bilateral pleural effusions/edema.
[2018-10-03] MEDS: Meropenem 500 MG in Sodium Chloride 0.9% 100 ML IVPB SCH ×4 (01:00→23:04)
[2018-10-03] MEDS: (Novolog) Insulin Aspart, Recombinant 100 u/ml 10 ml vial SC SCH ×2 (01:00→11:28)
[2018-10-03] MEDS: Acetylcysteine 20% Inhal Soln (4ml) INH SCH ×3 (03:56→20:30)
[2018-10-03 07:18] LABS: BASO % 0.4 % (0.0-2.0); EOS # 0.3 K/uL (0.0-0.7); EOS % 3.2 % (0.0-4.0); LYMPH # 1.4 K/uL (1.0-4.3); LYMPH % 16.3 % (20.0-40.0); MEAN CELL VOLUME 91.9 fL (81.0-99.0); MEAN CORPUSCULAR HEMOGLOBIN 31.1 pg (27.0-31.0); MEAN CORPUSCULAR HGB CONC 33.8 g/dL (33.0-37.0); MEAN PLATELET VOLUME 8.3 fL (7.2-11.7); MONO # 0.3 K/uL (0.0-0.8); MONO % 3.3 % (0.0-10.0); NEUT # 6.6 K/uL (1.8-7.0); NEUT % 76.8 % (50.0-75.0); RBC 2.58 Mil/uL (3.80-5.20); RED CELL DISTRIBUTION WIDTH 17.7 % (11.5-14.5); WHITE BLOOD COUNT 8.7 K/uL (4.8-10.8)
[2018-10-03 07:28] LABS: ALB/GLOB RATIO 0.9 (1.0-2.1); ALBUMIN 2.8 g/dL (3.5-5.0); ALT/SGPT 35 U/L (9-52); AST/SGOT 22 U/L (14-36); BLOOD UREA NITROGEN 32 mg/dL (7-17); CALCIUM 8.3 mg/dl (8.6-10.4); GFR NON-AFRICAN AMERICAN > 60
[2018-10-03] MEDS: Vitamins A & D Oint UD Foilpak TOP SCH ×2 (09:44→17:26)
[2018-10-03] MEDS: Modafinil 50 MG TAB PO SCH (09:44)
[2018-10-03] MEDS: Multiple Vitamins Tab PEG SCH (09:44)
[2018-10-03] MEDS: Pantoprazole 40 mg Susp UD GT SCH ×2 (09:45→21:40)
--- NOTE | 2018-10-03 10:49 | CP.PCM.PN ---
<Troy Alva - Last Filed: 10/03/18 23:20> Subjective - Date & Time of Evaluation Date of Evaluation: 10/03/18 Time of Evaluation: 11:00 - Subjective Subjective: PGY-[address] [place] N[place]itt Patient is seen and examined at bedside. No acute events reported. Patient is at bedside this morning. As per , patient is more alert and responsive. Patient is seen trying to speak, and makes eye contact with when speaking to her. ROS unattainable due to patient's nonverbal status. Objective - Vital Signs/Intake and Output Vital Signs (last 24 hours): Temp Pulse Resp BP Pulse Ox 98.5 F 84 13 94/52 L 98 10/03/18 04:00 10/03/18 06:01 10/03/18 06:01 10/03/18 06:01 10/03/18 06:01 Intake and Output: 10/03/18 10/03/18 06:59 18:59 Intake Total 1140 Output Total 500 Balance 640 - Medications Medications: Current Medications Acetylcysteine (Acetylcysteine 20%) 4 ml INH RQ4 [facility] Last Admin: 10/03/18 04:01 Dose: Not Given Albuterol/Ipratropium (Duoneb 3 Mg/0.5 Mg (3 Ml) Ud) 3 ml INH RQ4 PRN PRN Reason: Shortness of Breath Ascorbic Acid (Vitamin C 500 Mg Tab) 1,000 mg NG DAILY [facility] Last Admin: 10/03/18 09:44 Dose: 1,000 mg Aspirin (Aspirin Chewable) 81 mg GT DAILY [facility] Last Admin: 10/03/18 09:44 Dose: 81 mg Dextrose (Dextrose 50% Inj) 0 ml IVP .STAT PRN; Protocol PRN Reason: Hypoglycemia Protocol Dextrose (Glutose 15) 0 gm PO .ONCE PRN; Protocol PRN Reason: Hypoglycemia Protocol Ergocalciferol (Drisdol 50,000 Intl Units Cap) 1 cap GT Q7D [facility] Stop: 10/06/18 19:16 Last Admin: 09/29/18 18:20 Dose: 1 cap Glucagon (Glucagen Diagnostic Kit) 0 mg IM .STAT PRN; Protocol PRN Reason: Hypoglycemia Protocol Meropenem 500 mg/ Sodium (Chloride) 100 mls @ 100 mls/hr IVPB Q8H [facility]; Protocol Last Admin: 10/03/18 08:23 Dose: 100 mls/hr Insulin Aspart (Novolog) 0 unit SC Q12H [facility]; Protocol Last Admin: 10/03/18 01:00 Dose: Not Given Lactobacillus Acidophilus (Bacid Acidophilus) 1 cap PEG Q12 [facility] Last Admin: 10/02/18 21:30 Dose: 1 cap Methimazole (Tapazole) 20 mg PO Q8 [facility] Last Admin: 10/03/18 05:11 Dose: 20 mg Modafinil (Provigil) 50 mg PO DAILY [facility] Last Admin: 10/03/18 09:44 Dose: 50 mg Multivitamins (Hexavitamin) 1 tab PEG DAILY [facility] Last Admin: 10/03/18 09:44 Dose: 1 tab Pantoprazole Sodium (Protonix Susp) 40 mg GT Q12H [facility] Last Admin: 10/03/18 09:45 Dose: 40 mg Tamsulosin HCl (Flomax) 0.4 mg PEG DAILY [facility] Last Admin: 10/03/18 09:44 Dose: 0.4 mg Vitamin A (Vitamin A & D Oint Ud Foilpak) 0.5 ea TOP BID [facility] Last Admin: 10/03/18 09:44 Dose: 0.5 ea - Labs Labs: 10/03/18 07:09 10/03/18 07:09 PT 12.9 SECONDS (9.7-12.2) H 10/02/18 06:10 INR 1.2 10/02/18 06:10 APTT 23 SECONDS (21-34) 10/02/18 06:10 - Constitutional Appears: No Acute Distress, Older Than Stated Age, Chronically Ill - Head Exam Head Exam: ATRAUMATIC, NORMOCEPHALIC - Eye Exam Eye Exam: EOMI - ENT Exam ENT Exam: Mucous Membranes Moist - Neck Exam Additional comments: trach in place - Respiratory Exam Respiratory Exam: Decreased Breath Sounds, Rales. absent: Accessory Muscle Use - Cardiovascular Exam Cardiovascular Exam: REGULAR RHYTHM, +S1, +S2 - GI/Abdominal Exam GI & Abdominal Exam: Soft, Normal Bowel Sounds - Extremities Exam Extremities Exam: absent: Pedal Edema, Tenderness - Neurological Exam Neurological Exam: Awake. absent: Alert, Normal Gait, Oriented x3 - Psychiatric Exam Psychiatric exam: Flat Affect - Skin Skin Exam: Dry, Intact Assessment and Plan - Assessment and Plan (Free Text) Plan: New Loculated Pleural Effusion on CXR - Chest XR 10/01: Interval development of pleural effusions with loculated com ponent along the right lateral chest wall. Moderate pulmonary venous congestion. Underlying pulmonary edema especially in the right lung is also a consideration. Follow up after medical management is recommended to ensure complete resolution. - IR consulted, Dr. Chavis, for drainage done 10/02 -Right pleural effusion, US guided right thoracentesis 1 liter of brittany colored fluid - Continue Meropenem 500mg IV Q8 - F/u repeat chest x-rays Septic Shock secondary to Pneumonia and Urinary Tract Infection New Pneumonia-->pseudomonas * WBC WNL. Labs every other day. PRN straight cath for retention. * Infectious Disease (Dr. Brock) on board-->help appreciated * Patient is off antibiotics at this time * Meropenem d/c 08/27 * Maxipime 1gm [id number] (from 08/27/18 to 09/12/18) * Trach Aspirate: Psuedomonas * s/p bronchoscopy (08/23/18) * 08/23: Bronchial Washings: pseudomonas Aeruginosa * 08/23: Fungal Culture: Prelim: negative * 08/23: Mycobacterial culture: negative * s/p chest tube 09/06/18; removed 09/15 * Pleural fluid: no growth * Recent culture: * 08/25/18 Blood culture: no growth 5 days X 2 * 08/23/18 Blood culture: no growth after 5 days X 2 * 08/27/18 Blood culture: no growth after 5 days * 08/27/18 UA and Urine Culture: no growth * Salmonella, shigella, or campylobacteria: not detected. * Trachasp: Pseudomonas Aeruginosa-->sensitive to Cipro * 09/19 Urine culture: gram positive cocci * s/p Lumbar Puncture * Opening pressure: 21; normal no evidence of ICP * CSF Culture: No growth * No Mycobact nor fungal observed * HSV 1 DNA and HSV 2: not detected * no CSF growth * Discussed with Dr. Soniya Parekh, atraumatic tap. * Discussed with Dr. Brock, continue Acyclovir 700mg IV Q8H for 10 days to cover. Finish on 10/02. * Procalcitonin: 2.89 (08/28)-->0.33 (09/04)--->0.34 Shock Liver; Transminitis; resolved * GI has signed off * Hepatitis serology negative * Ammonia: normal * elevated INR--> vitamin K 08/24 * 08/24: off statin, benadryl, benzo, ambien, and micafungin (gave dose of 08/23) * Continue to monitor LFTs; suspected medication induced or related to low blood pressure * Gi (Dr. Murray) * discussed case with fellow 08/26/18 * Abd US shows bilateral pleural effusions, patent portal vein, no hydronephrosis, no GB stones or cholecystitis * CT Abdomen/pelvis (08/25/18): limited evaluated evaluation hepatic vein thrombosis. heterogenous attenuation of the liver. * ASt/ALT normal limits Anoxic Encephalopathy; unresolved; seems to be patients baseline * Code Blue 07/10 and 07/20 * Patient prior knowledge of 5 languages per but does not follow commands * CT head: no acute intracranial pathology. Age-related changes. no significant interval change. * suspect cognitive decline since second code blue * Brain MRI (09/08/18); no definite mass effect or suspicious extra axial collection. no evidence of acute or subacute brain infarction at this time. Borderline pattern of hydrocephalus * s/p Lumbar Puncture 09/15 * Opening pressure: 21; normal no evidence of ICP * CSF Culture: No growth * No Mycobact nor fungal observed * HSV 1 DNA and HSV 2: not detected chronic Respiratory Failure Pulmonary Edema Pseudomona Pneumonia s/p Trach * Patient having some respiratory distress this morning and ample secretions removed from trach via suction. Stat duoneb treatment given. Patient has Q4 dounebs and mucomist ordered. * Patient underwent tracheostomy 07/24/18, s/p bronchoscopy 08/23, s/p right chest tube insertion * Patient had tolerated trach collars thru Tuesday 08/14; however she has been on vent to trach. Fi02: 30 percent * Pulmonary (Dr. Maciel) on board-->assisting with weaning from trach on vent to trach collar * Duonebs 3ml Inh Q6H * s/p bronchoscopy (08/23/18) * Pseudomonas aerguinosa * dictated by dr maciel * 08/23: Bronchial Washings: pseudomonas Aeruginosa * 08/23: Fungal Culture: Prelim: negative * 08/23: Mycobacterial culture: prelim * s/p chest tube insertion (09/06/18) was removed 09/15 * pleural fluid: no growth * Chest physiotherapy Ventricular Tachycardia NSTEMI Apical Thrombus LLE DVT s/p IVC filter * ASA 81 daily restarted * Code Blue 07/10: SVT==>VT required amiodarone, magnesium, one shock delivered * Code Blue 07/20: vtach s/p amiodarone, fluid, calcium gluconate, required compressions and shock * S/p IVC filter 08/23/18 * Cardiology Dr Francisco on case help appreciated * No cath needed. * Medical management * No chemical anticoagulation in light of bleeding episodes (patient has dys function uterine bleeding required blood transfusions; Ob has been consulted earlier in the hospitalization to inpatient workup)-->recommending heparin 5000 unit subq8 (DVT ppx dose) and aspirin 81mg PO daily; likely thrombus is organized a month of anticoagulation; risk is due to bleeding against stroke * d/c Propranolol 5mg PO TID (hold SBP<100 and HR<60) * Eliquis d/c bleeding and anemia-->dvt ppx and aspirin * Echo discussed with Dr. Francisco, patient does have residual clot-->aware we cannot anticoagulate given heavy vaginal bleeding * H/H stable in ' no vaginal bleeding noted since chemical anticoagulation d/c; c.w Aspirin 81mg PO daily [facility] Urinary Tract Infection (resolved) * OFF Contact isolation Diabetes-->chronic * HgBA1c: 7.8 * Hypoglycemic protocol * held Lantus 15 units subcutaneous at bedtime Q12 since 08/23/18 * Hypoglycemic 08/23/18 AM * Accuchecks Q6H * Novolog sliding scale * off Crestor 5mg POqHS secondary to LFTs Acute on Chronic Renal Failure * Nephrology (Dr. Hyde) on board--> help appreciated-->has signed off Hyperthyroidism? Low TSH, and Free T4 Thyroid Storm * Note Thyroid studies taken before amiodarone was given (please advised this is not amiodarone induced her levels were abnormal prior) * Patient does not have prior thyroid history * Endocrinology (Dr. Gayle) on board help appreciated * Thyroid U/S 07/16/18: showed heterogenous thyroid with multiple nodules bilaterally. She will need outpatient FNA Bx of the complex Left Lobe cyst (please see full report) * Methimazole 20mg PO TID * off Propranolol 5 mg PO TID due to hypotension * Monitor LFTs Anemia Likely Secondary to Chronic Diseases Dysfunctional uterine bleeding * Iron normal, TIBC low, Iron Saturation normal, Ferritin normal * Stool occult blood negative * B12 normal * Folate Normal * Transfused 1 unit PRBC 07/22/18, 2 unit of PRBC 08/13/18 1 unit on 08/17/18, 1 unit 08/23/18 * Patient has been seen by OB Hospitalist; no contraindication to anticoagulation * recommend outpatient workup for vaginal bleeding * Case discussed with merchandise pickup/receiving associate recommending against eliquis in light of bleeding; recommending for DVT ppx and aspirin if patient can tolerate it Vitamin D deficiency * 50,000 international units once a week (3 doses given so far) * Restart Vitamin D 50,000 IU once a week started on 08/18/18) Thrombocytopenia-->resolved * HIT/RUSTY were negative 13 mm Left Adrenal Nodule * As seen on CT Chest 07/16/[address] abdomen/pelvis * Will need outpatient follow up for cross sectional imaging for better characterization Hypernatremia (resolved) * Start free fluid washes 250ml Q6 via tube feeds * D5 Free water @ 100ml 09/23/18 Deconditioning * Patient needs continued PT/O * reposition q2h * Respiratory attempting to wean but remains on vent. * Brain MRI (09/08/18); no definite mass effect or suspicious extra axial collection. no evidence of acute or subacute brain infarction at this time. Borderline pattern of hydrocephalus * Patient unable to get LTAC given lack of insurance Tardive Dyskinesa * Trazodone discontinued, EPS seem to have improved * Given Ativan 0.5mg IV X1 09/24 to reverse Prophylactic measure * Protonix 40mg GT BID * Lactobacillus 1 cap PO BID * MVI 1x/day * Vitamin C 1,000 NG 1x/day * s/p Trach and Peg * SCD on Right and contraindicated on Left due to DVT * Peg feedings * Pulmcar 40cc/hr * patient had frequent BMs on prior formula; no diarrhea; we have spoken with dietary to change it on 08/19/18 * PICC Line d/c due to coiling * Patient has midline access * Note: speak to patient in alexis to assess neurologic status-->she does follow sometimes * s/p bronchoscopy 08/23 * s/p IVC filter 08/23 * s/p LP 09/15 * s/p right chest tube insertion 09/06; removed 09/15 * patient is FULL CODE * Provigil 50mg PO daily started to promote wakefulness during the day. * Social work note (08/09/18): patient is undocumented, has not health insurance, dc planning will be at home with Disposition: Continue aggressive PT/OT. Patient's to update us with a contact phone number to reach him when not present at bedside. Patient will be getting a friend's phone number. will follow with Mr Isaacs. <[place]itt - Last Filed: 10/04/18 02:53> Objective - Vital Signs/Intake and Output Vital Signs (last 24 hours): Temp Pulse Resp BP Pulse Ox 97.3 F L 90 19 93/67 L 100 10/04/18 00:00 10/04/18 02:00 10/04/18 02:00 10/04/18 00:05 10/04/18 02:00 Intake and Output: 10/03/18 10/04/18 18:59 06:59 Intake Total 680 Output Total 450 Balance 230 - Medications Medications: Current Medications Acetylcysteine (Acetylcysteine 20%) 4 ml INH RQ4 [facility] Last Admin: 10/03/18 20:30 Dose: Not Given Albuterol/Ipratropium (Duoneb 3 Mg/0.5 Mg (3 Ml) Ud) 3 ml INH RQ4 PRN PRN Reason: Shortness of Breath Ascorbic Acid (Vitamin C 500 Mg Tab) 1,000 mg NG DAILY [facility] Last Admin: 10/03/18 09:44 Dose: 1,000 mg Aspirin (Aspirin Chewable) 81 mg GT DAILY [facility] Last Admin: 10/03/18 09:44 Dose: 81 mg Dextrose (Dextrose 50% Inj) 0 ml IVP .STAT PRN; Protocol PRN Reason: Hypoglycemia Protocol Dextrose (Glutose 15) 0 gm PO .ONCE PRN; Protocol PRN Reason: Hypoglycemia Protocol Ergocalciferol (Drisdol 50,000 Intl Units Cap) 1 cap GT Q7D [facility] Stop: 10/06/18 19:16 Last Admin: 09/29/18 18:20 Dose: 1 cap Glucagon (Glucagen Diagnostic Kit) 0 mg IM .STAT PRN; Protocol PRN Reason: Hypoglycemia Protocol Meropenem 500 mg/ Sodium (Chloride) 100 mls @ 100 mls/hr IVPB Q8H [facility]; Protocol Last Admin: 10/03/18 23:04 Dose: 100 mls/hr Insulin Aspart (Novolog) 0 unit SC Q12H [facility]; Protocol Last Admin: 10/04/18 00:11 Dose: Not Given Lactobacillus Acidophilus (Bacid Acidophilus) 1 cap PEG Q12 [facility] Last Admin: 10/03/18 21:39 Dose: 1 cap Methimazole (Tapazole) 20 mg PO Q8 [facility] Last Admin: 10/03/18 21:39 Dose: 20 mg Modafinil (Provigil) 50 mg PO DAILY [facility] Last Admin: 10/03/18 09:44 Dose: 50 mg Multivitamins (Hexavitamin) 1 tab PEG DAILY [facility] Last Admin: 10/03/18 09:44 Dose: 1 tab Pantoprazole Sodium (Protonix Susp) 40 mg GT Q12H [facility] Last Admin: 10/03/18 21:40 Dose: 40 mg Tamsulosin HCl (Flomax) 0.4 mg PEG DAILY [facility] Last Admin: 10/03/18 09:44 Dose: 0.4 mg Vitamin A (Vitamin A & D Oint Ud Foilpak) 0.5 ea TOP BID [facility] Last Admin: 10/03/18 17:26 Dose: 0.5 ea - Labs Labs: 10/03/18 07:09 10/03/18 07:09 PT 12.9 SECONDS (9.7-12.2) H 10/02/18 06:10 INR 1.2 10/02/18 06:10 APTT 23 SECONDS (21-34) 10/02/18 06:10 Attending/Attestation - Attestation I have personally seen and examined this patient.: Yes I have fully participated in the care of the patient.: Yes I have reviewed all pertinent clinical information, including history, physical exam and plan: Yes Notes (Text): 10/04/18 02:53 This is a late entry. Care of this patient was gone over with resident Dr. Alva. [place] N[place]itt D.O.
[2018-10-03] MEDS: Lactobacillus Acidophilus 500 MU Cap PEG SCH ×2 (13:25→21:39)
[2018-10-04] MEDS: (Novolog) Insulin Aspart, Recombinant 100 u/ml 10 ml vial SC SCH ×2 (00:11→12:00)
--- NOTE | 2018-10-04 02:46 | CP.PCM.PCO ---
Physician Communication Note - Physician Communication Note Physician Communication Note: Please see above
[2018-10-04] MEDS: Acetylcysteine 20% Inhal Soln (4ml) INH SCH ×4 (03:54→23:35)
[2018-10-04] MEDS: Meropenem 500 MG in Sodium Chloride 0.9% 100 ML IVPB SCH (07:00)
[2018-10-04] MEDS: Pantoprazole 40 mg Susp UD GT SCH ×2 (09:58→21:02)
[2018-10-04] MEDS: Vitamins A & D Oint UD Foilpak TOP SCH ×2 (09:58→18:01)
[2018-10-04] MEDS: Multiple Vitamins Tab PEG SCH (09:58)
[2018-10-04] MEDS: Modafinil 50 MG TAB PO SCH (09:58)
[2018-10-04] MEDS: Lactobacillus Acidophilus 500 MU Cap PEG SCH ×2 (10:08→21:02)
--- NOTE | 2018-10-04 10:21 | CP.PCM.PN ---
Objective - Vital Signs/Intake and Output Vital Signs (last 24 hours): Temp Pulse Resp BP Pulse Ox 97.3 F L 73 18 93/51 L 99 10/04/18 08:00 10/04/18 08:00 10/04/18 08:00 10/04/18 07:04 10/04/18 08:00 Intake and Output: 10/04/18 10/04/18 06:59 18:59 Intake Total 580 Output Total 600 Balance -20 - Medications Medications: Current Medications Acetylcysteine (Acetylcysteine 20%) 4 ml INH RQ4 [facility] Last Admin: 10/04/18 03:54 Dose: Not Given Albuterol/Ipratropium (Duoneb 3 Mg/0.5 Mg (3 Ml) Ud) 3 ml INH RQ4 PRN PRN Reason: Shortness of Breath Ascorbic Acid (Vitamin C 500 Mg Tab) 1,000 mg NG DAILY [facility] Last Admin: 10/04/18 09:59 Dose: 1,000 mg Aspirin (Aspirin Chewable) 81 mg GT DAILY [facility] Last Admin: 10/04/18 09:59 Dose: 81 mg Dextrose (Dextrose 50% Inj) 0 ml IVP .STAT PRN; Protocol PRN Reason: Hypoglycemia Protocol Dextrose (Glutose 15) 0 gm PO .ONCE PRN; Protocol PRN Reason: Hypoglycemia Protocol Ergocalciferol (Drisdol 50,000 Intl Units Cap) 1 cap GT Q7D [facility] Stop: 10/06/18 19:16 Last Admin: 09/29/18 18:20 Dose: 1 cap Glucagon (Glucagen Diagnostic Kit) 0 mg IM .STAT PRN; Protocol PRN Reason: Hypoglycemia Protocol Meropenem 500 mg/ Sodium (Chloride) 100 mls @ 100 mls/hr IVPB Q8H [facility]; Protocol Last Admin: 10/04/18 07:00 Dose: 100 mls/hr Insulin Aspart (Novolog) 0 unit SC Q12H [facility]; Protocol Last Admin: 10/04/18 00:11 Dose: Not Given Lactobacillus Acidophilus (Bacid Acidophilus) 1 cap PEG Q12 [facility] Last Admin: 10/04/18 10:08 Dose: 1 cap Methimazole (Tapazole) 20 mg PO Q8 [facility] Last Admin: 10/04/18 05:27 Dose: 20 mg Modafinil (Provigil) 50 mg PO DAILY [facility] Last Admin: 10/04/18 09:58 Dose: 50 mg Multivitamins (Hexavitamin) 1 tab PEG DAILY [facility] Last Admin: 10/04/18 09:58 Dose: 1 tab Pantoprazole Sodium (Protonix Susp) 40 mg GT Q12H [facility] Last Admin: 10/04/18 09:58 Dose: 40 mg Tamsulosin HCl (Flomax) 0.4 mg PEG DAILY [facility] Last Admin: 10/04/18 09:58 Dose: 0.4 mg Vitamin A (Vitamin A & D Oint Ud Foilpak) 0.5 ea TOP BID [facility] Last Admin: 10/04/18 09:58 Dose: 0.5 ea - Labs Labs: 10/03/18 07:09 10/03/18 07:09 PT 12.9 SECONDS (9.7-12.2) H 10/02/18 06:10 INR 1.2 10/02/18 06:10 APTT 23 SECONDS (21-34) 10/02/18 06:10 Assessment and Plan - Assessment and Plan (Free Text) Assessment: New Loculated Pleural Effusion on CXR - Chest XR 10/01: Interval development of pleural effusions with loculated component along the right lateral chest wall. Moderate pulmonary venous congestion. Underlying pulmonary edema especially in the right lung is also a consideration. Follow up after medical management is recommended to ensure complete resolution. - IR consulted, Dr. Chavis, for drainage done 10/02 -Right pleural effusion, US guided right thoracentesis 1 liter of brittany colored fluid --Fluid cultures negative x24 hours - Continue Meropenem 500mg IV Q8 - F/u repeat chest x-rays Septic Shock secondary to Pneumonia and Urinary Tract Infection New Pneumonia-->pseudomonas * WBC WNL. Labs every other day. PRN straight cath for retention. * Infectious Disease (Dr. Brock) on board-->help appreciated * Patient is off antibiotics at this time * Meropenem d/c 08/27 * Maxipime 1gm [id number] (from 08/27/18 to 09/12/18) * Trach Aspirate: Psuedomonas * s/p bronchoscopy (08/23/18) * 08/23: Bronchial Washings: pseudomonas Aeruginosa * 08/23: Fungal Culture: Prelim: negative * 08/23: Mycobacterial culture: negative * s/p chest tube 09/06/18; removed 09/15 * Pleural fluid: no growth * Recent culture: * 08/25/18 Blood culture: no growth 5 days X 2 * 08/23/18 Blood culture: no growth after 5 days X 2 * 08/27/18 Blood culture: no growth after 5 days * 08/27/18 UA and Urine Culture: no growth * Salmonella, shigella, or campylobacteria: not detected. * Trachasp: Pseudomonas Aeruginosa-->sensitive to Cipro * 09/19 Urine culture: gram positive cocci * s/p Lumbar Puncture * Opening pressure: 21; normal no evidence of ICP * CSF Culture: No growth * No Mycobact nor fungal observed * HSV 1 DNA and HSV 2: not detected * no CSF growth * Discussed with Dr. Soniya Parekh, atraumatic tap. * Discussed with Dr. Brock, continue Acyclovir 700mg IV Q8H for 10 days to cover. Finish on 10/02. * Procalcitonin: 2.89 (08/28)-->0.33 (09/04)--->0.34 Shock Liver; Transminitis; resolved * GI has signed off * Hepatitis serology negative * Ammonia: normal * elevated INR--> vitamin K 08/24 * 08/24: off statin, benadryl, benzo, ambien, and micafungin (gave dose of 10/23) * Continue to monitor LFTs; suspected medication induced or related to low blood pressure * Gi (Dr. Murray) * discussed case with fellow 08/26/18 * Abd US shows bilateral pleural effusions, patent portal vein, no hydronephrosis, no GB stones or cholecystitis * CT Abdomen/pelvis (08/25/18): limited evaluated evaluation hepatic vein thrombosis. heterogenous attenuation of the liver. * ASt/ALT normal limits Anoxic Encephalopathy; unresolved; seems to be patients baseline * Code Blue 07/10 and 07/20 * Patient prior knowledge of 5 languages per but does not follow commands * CT head: no acute intracranial pathology. Age-related changes. no significant interval change. * suspect cognitive decline since second code blue * Brain MRI (09/08/18); no definite mass effect or suspicious extra axial collection. no evidence of acute or subacute brain infarction at this time. Borderline pattern of hydrocephalus * s/p Lumbar Puncture 09/15 * Opening pressure: 21; normal no evidence of ICP * CSF Culture: No growth * No Mycobact nor fungal observed * HSV 1 DNA and HSV 2: not detected chronic Respiratory Failure Pulmonary Edema Pseudomona Pneumonia s/p Trach * Patient having some respiratory distress this morning and ample secretions removed from trach via suction. Stat duoneb treatment given. Patient has Q4 dounebs and mucomist ordered. * Patient underwent tracheostomy 07/24/18, s/p bronchoscopy 08/23, s/p right chest tube insertion * Patient had tolerated trach collars thru Tuesday 08/14; however she has been on vent to trach. Fi02: 30 percent * Pulmonary (Dr. Maciel) on board-->assisting with weaning from trach on vent to trach collar * Duonebs 3ml Inh Q6H * s/p bronchoscopy (08/23/18) * Pseudomonas aerguinosa * dictated by dr maciel * 08/23: Bronchial Washings: pseudomonas Aeruginosa * 08/23: Fungal Culture: Prelim: negative * 08/23: Mycobacterial culture: prelim * s/p chest tube insertion (09/06/18) was removed 09/15 * pleural fluid: no growth * Chest physiotherapy Ventricular Tachycardia NSTEMI Apical Thrombus LLE DVT s/p IVC filter * ASA 81 daily restarted * Code Blue 07/10: SVT==>VT required amiodarone, magnesium, one shock delivered * Code Blue 07/20: vtach s/p amiodarone, fluid, calcium gluconate, required compressions and shock * S/p IVC filter 08/23/18 * Cardiology Dr Francisco on case help appreciated * No cath needed. * Medical management * No chemical anticoagulation in light of bleeding episodes (patient has dysfunction uterine bleeding required blood transfusions; Ob has been consulted earlier in the hospitalization to inpatient workup)-->recommending heparin 5000 unit subq8 (DVT ppx dose) and aspirin 81mg PO daily; likely thrombus is organized a month of anticoagulation; risk is due to bleeding against stroke * d/c Propranolol 5mg PO TID (hold SBP<100 and HR<60) * Eliquis d/c bleeding and anemia-->dvt ppx and aspirin * Echo discussed with Dr. Francisco, patient does have residual clot-->aware we cannot anticoagulate given heavy vaginal bleeding * H/H stable in 10's no vaginal bleeding noted since chemical anticoagulation d/c; c.w Aspirin 81mg PO daily VRE Urinary Tract Infection (resolved) * OFF Contact isolation Diabetes-->chronic * HgBA1c: 7.8 * Hypoglycemic protocol * held Lantus 15 units subcutaneous at bedtime Q12 since 08/23/18 * Hypoglycemic 08/23/18 AM * Accuchecks Q6H * Novolog sliding scale * off Crestor 5mg POqHS secondary to LFTs Acute on Chronic Renal Failure * Nephrology (Dr. Hyde) on board--> help appreciated-->has signed off Hyperthyroidism? Low TSH, and Free T4 Thyroid Storm * Note Thyroid studies taken before amiodarone was given (please advised this is not amiodarone induced her levels were abnormal prior) * Patient does not have prior thyroid history * Endocrinology (Dr. Gayle) on board help appreciated * Thyroid U/S 07/16/18: showed heterogenous thyroid with multiple nodules bilaterally. She will need outpatient FNA Bx of the complex Left Lobe cyst (please see full report) * Methimazole 20mg PO TID * off Propranolol 5 mg PO TID due to hypotension * Monitor LFTs Anemia Likely Secondary to Chronic Diseases Dysfunctional uterine bleeding * Iron normal, TIBC low, Iron Saturation normal, Ferritin normal * Stool occult blood negative * B12 normal * Folate Normal * Transfused 1 unit PRBC 07/22/18, 2 unit of PRBC 08/13/18 1 unit on 08/17/18, 1 unit 08/23/18 * Patient has been seen by OB Hospitalist; no contraindication to anticoag ulation * recommend outpatient workup for vaginal bleeding * Case discussed with hourly team members recommending against eliquis in light of bleeding; recommending for DVT ppx and aspirin if patient can tolerate it Vitamin D deficiency * 50,000 international units once a week (3 doses given so far) * Restart Vitamin D 50,000 IU once a week started on 08/18/18) Thrombocytopenia-->resolved * HIT/RUSTY were negative 13 mm Left Adrenal Nodule * As seen on CT Chest 07/16/[address] abdomen/pelvis * Will need outpatient follow up for cross sectional imaging for better characterization Hypernatremia (resolved) * Start free fluid washes 250ml Q6 via tube feeds * D5 Free water @ 100ml 09/23/18 Deconditioning * Patient needs continued PT/O * reposition q2h * Respiratory attempting to wean but remains on vent. * Brain MRI (09/08/18); no definite mass effect or suspicious extra axial collection. no evidence of acute or subacute brain infarction at this time. Borderline pattern of hydrocephalus * Patient unable to get LTAC given lack of insurance Tardive Dyskinesa * Trazodone discontinued, EPS seem to have improved * Given Ativan 0.5mg IV X1 09/24 to reverse Prophylactic measure * Protonix 40mg GT BID * Lactobacillus 1 cap PO BID * MVI 1x/day * Vitamin C 1,000 NG 1x/day * s/p Trach and Peg * SCD on Right and contraindicated on Left due to DVT * Peg feedings * Pulmcar 40cc/hr * patient had frequent BMs on prior formula; no diarrhea; we have spoken with dietary to change it on 08/19/18 * PICC Line d/c due to coiling * Patient has midline access * Note: speak to patient in [place] to assess neurologic status-->she does follow sometimes * s/p bronchoscopy 08/23 * s/p IVC filter 08/23 * s/p LP 09/15 * s/p right chest tube insertion 09/06; removed 09/15 * patient is FULL CODE * Provigil 50mg PO daily started to promote wakefulness during the day. * Social work note (08/09/18): patient is undocumented, has not health insurance, dc planning will be at home with Disposition: Continue aggressive PT/OT. Patient's to update us with a contact phone number to reach him when not present at bedside. Patient will be getting a friend's phone number. will follow with Mr Isaacs.
--- NOTE | 2018-10-04 10:31 | RAD ---
Date of service: 10/04/2018 HISTORY: congestion sp thoracentesis right pleura COMPARISON: Portable chest 10/02/2018. FINDINGS: LUNGS: Endotracheal tube and midline right PICC are unchanged in position. Hazy bilateral perihilar and medial basilar opacity is increased at the right and appears symmetric suspicious for potential mild pulmonary vascular congestion though this is not definite. Mild bilateral infiltrates are not excluded. Left basilar opacity is improving nevertheless. PLEURA: Limited left pleural effusion potentially remaining. None is seen at the right. No pneumothorax bilaterally. CARDIOVASCULAR: No aortic atherosclerotic calcification present. Normal cardiac size. No pulmonary vascular congestion. OSSEOUS STRUCTURES: No significant abnormalities. VISUALIZED UPPER ABDOMEN: Left gastrostomy tube identified at the left upper quadrant abdomen. OTHER FINDINGS: None. IMPRESSION: Potential pulmonary vascular congestion though this is not definite. Symmetric bilateral infiltrates are other differential diagnosis at the bilateral perihilar and medial basilar distributions with trace left pleural effusion question.
--- NOTE | 2018-10-04 15:15 | CP.PCM.PN ---
<Elijah Weinberg - Last Filed: 10/04/18 18:01> Subjective - Date & Time of Evaluation Date of Evaluation: 10/04/18 Time of Evaluation: 15:19 - Subjective Subjective: PGY-[address] Leahy Patient seen and examined at bedside. No acute events overnight. Patient remains with trach on ventilator. ROS unable to be obtained. Objective - Vital Signs/Intake and Output Vital Signs (last 24 hours): Temp Pulse Resp BP Pulse Ox 99.3 F 94 H 16 111/70 99 10/04/18 12:00 10/04/18 11:52 10/04/18 11:52 10/04/18 11:52 10/04/18 11:52 Intake and Output: 10/04/18 10/04/18 06:59 18:59 Intake Total 580 Output Total 600 Balance -20 - Medications Medications: Current Medications Acetylcysteine (Acetylcysteine 20%) 4 ml INH RQ4 [facility] Last Admin: 10/04/18 03:54 Dose: Not Given Albuterol/Ipratropium (Duoneb 3 Mg/0.5 Mg (3 Ml) Ud) 3 ml INH RQ4 PRN PRN Reason: Shortness of Breath Ascorbic Acid (Vitamin C 500 Mg Tab) 1,000 mg NG DAILY [facility] Last Admin: 10/04/18 09:59 Dose: 1,000 mg Aspirin (Aspirin Chewable) 81 mg GT DAILY [facility] [place] Last Admin: 10/04/18 09:59 Dose: 81 mg Dextrose (Dextrose 50% Inj) 0 ml IVP .STAT PRN; Protocol PRN Reason: Hypoglycemia Protocol Dextrose (Glutose 15) 0 gm PO .ONCE PRN; Protocol PRN Reason: Hypoglycemia Protocol Ergocalciferol (Drisdol 50,000 Intl Units Cap) 1 cap GT Q7D [facility] Stop: 10/06/18 19:16 Last Admin: 09/29/18 18:20 Dose: 1 cap Glucagon (Glucagen Diagnostic Kit) 0 mg IM .STAT PRN; Protocol PRN Reason: Hypoglycemia Protocol Insulin Aspart (Novolog) 0 unit SC Q12H [facility]; Protocol Last Admin: 10/04/18 12:00 Dose: Not Given Lactobacillus Acidophilus (Bacid Acidophilus) 1 cap PEG Q12 [facility] Last Admin: 10/04/18 10:08 Dose: 1 cap Methimazole (Tapazole) 20 mg PO Q8 [facility] Last Admin: 10/04/18 13:09 Dose: 20 mg Modafinil (Provigil) 50 mg PO DAILY [facility] [place] Last Admin: 10/04/18 09:58 Dose: 50 mg Multivitamins (Hexavitamin) 1 tab PEG DAILY [facility] [place] Last Admin: 10/04/18 09:58 Dose: 1 tab Pantoprazole Sodium (Protonix Susp) 40 mg GT Q12H [facility] [place] Last Admin: 10/04/18 09:58 Dose: 40 mg Tamsulosin HCl (Flomax) 0.4 mg PEG DAILY [facility] [place] Last Admin: 10/04/18 09:58 Dose: 0.4 mg Vitamin A (Vitamin A & D Oint Ud Foilpak) 0.5 ea TOP BID [facility] [place] Last Admin: 10/04/18 09:58 Dose: 0.5 ea - Labs Labs: 10/03/18 07:09 10/03/18 07:09 PT 12.9 SECONDS (9.7-12.2) H 10/02/18 06:10 INR 1.2 10/02/18 06:10 APTT 23 SECONDS (21-34) 10/02/18 06:10 - Constitutional Appears: Non-toxic, No Acute Distress - Head Exam Head Exam: ATRAUMATIC, NORMOCEPHALIC - Eye Exam Eye Exam: EOMI - ENT Exam ENT Exam: Mucous Membranes Moist - Neck Exam Additional comments: trach - Respiratory Exam Respiratory Exam: Clear to Ausculation Bilateral. absent: Rhonchi, Wheezes Additional comments: on vent - Cardiovascular Exam Cardiovascular Exam: REGULAR RHYTHM - GI/Abdominal Exam GI & Abdominal Exam: Soft, Normal Bowel Sounds - Extremities Exam Extremities Exam: absent: Pedal Edema - Neurological Exam Neurological Exam: Awake. absent: Alert, Oriented x3 - Psychiatric Exam Psychiatric exam: Flat Affect - Skin Skin Exam: Dry, Intact Assessment and Plan - Assessment and Plan (Free Text) Assessment: New Loculated Pleural Effusion on CXR - Chest XR 10/01: Interval development of pleural effusions with loculated component along the right lateral chest wall. Moderate pulmonary venous congestion. Underlying pulmonary edema especially in the right lung is also a consideration. Follow up after medical management is recommended to ensure complete resolution. - IR consulted, Dr. Chavis, for drainage done 10/02 -Right pleural effusion, US guided right thoracentesis 1 liter of brittany colored fluid - Continue to follow repeat x-rays - Meropenem did not show sensitivity --> antibiotics discontinued at this time patient not showing signs of infection VRE + Urine - Patient without fevers or white count at this time - We are not restarting antibiotics at this time Septic Shock secondary to Pneumonia and Urinary Tract Infection New Pneumonia-->pseudomonas * WBC WNL. Labs every other day. PRN straight cath for retention. * Infectious Disease (Dr. Brock) on board-->help appreciated * Patient is off antibiotics at this time * Meropenem d/c 08/27 * Maxipime 1gm [id number] (from 08/27/18 to 09/12/18) * Trach Aspirate: Psuedomonas * s/p bronchoscopy (08/23/18) * 08/23: Bronchial Washings: pseudomonas Aeruginosa * 08/23: Fungal Culture: Prelim: negative * 08/23: Mycobacterial culture: negative * s/p chest tube 09/06/18; removed 09/15 * Pleural fluid: no growth * Recent culture: * 08/25/18 Blood culture: no growth 5 days X 2 * 08/23/18 Blood culture: no growth after 5 days X 2 * 08/27/18 Blood culture: no growth after 5 days * 08/27/18 UA and Urine Culture: no growth * Salmonella, shigella, or campylobacteria: not detected. * Trachasp: Pseudomonas Aeruginosa-->sensitive to Cipro * 09/19 Urine culture: gram positive cocci * s/p Lumbar Puncture * Opening pressure: 21; normal no evidence of ICP * CSF Culture: No growth * No Mycobact nor fungal observed * HSV 1 DNA and HSV 2: not detected * no CSF growth * Discussed with Dr. Soniya Parekh, atraumatic tap. * Discussed with Dr. Brock, continue Acyclovir 700mg IV Q8H for 10 days to cover. Finish on 10/02. * Procalcitonin: 2.89 (08/28)-->0.33 (09/04)--->0.34 Shock Liver; Transminitis; resolved * GI has signed off * Hepatitis serology negative * Ammonia: normal * elevated INR--> vitamin K 08/24 * 08/24: off statin, benadryl, benzo, ambien, and micafungin (gave dose of 08/23) * Continue to monitor LFTs; suspected medication induced or related to low blood pressure * Gi (Dr. Murray) * discussed case with fellow 08/26/18 * Abd US shows bilateral pleural effusions, patent portal vein, no hydronephrosis, no GB stones or cholecystitis * CT Abdomen/pelvis (08/25/18): limited evaluated evaluation hepatic vein thrombosis. heterogenous attenuation of the liver. * ASt/ALT normal limits Anoxic Encephalopathy; unresolved; seems to be patients baseline * Code Blue 07/10 and 07/20 * Patient prior knowledge of 5 languages per but does not follow commands * CT head: no acute intracranial pathology. Age-related changes. no significant interval change. * suspect cognitive decline since second code blue * Brain MRI (09/08/18); no definite mass effect or suspicious extra axial collection. no evidence of acute or subacute brain infarction at this time. Borderline pattern of hydrocephalus * s/p Lumbar Puncture 09/15 * Opening pressure: 21; normal no evidence of ICP * CSF Culture: No growth * No Mycobact nor fungal observed * HSV 1 DNA and HSV 2: not detected chronic Respiratory Failure Pulmonary Edema Pseudomona Pneumonia s/p Trach * Patient having some respiratory distress this morning and ample secretions removed from trach via suction. Stat duoneb treatment given. Patient has Q4 dounebs and mucomist ordered. * Patient underwent tracheostomy 07/24/18, s/p bronchoscopy 08/23, s/p right chest tube insertion * Patient had tolerated trach collars thru Tuesday 08/14; however she has been on vent to trach. Fi02: 30 percent * Pulmonary (Dr. Lozada) on board-->assisting with weaning from trach on vent to trach collar * Duonebs 3ml Inh Q6H * s/p bronchoscopy (08/23/18) * Pseudomonas aerguinosa * dictated by dr lozada * 08/23: Bronchial Washings: pseudomonas Aeruginosa * 08/23: Fungal Culture: Prelim: negative * 08/23: Mycobacterial culture: prelim * s/p chest tube insertion (09/06/18) was removed 09/15 * pleural fluid: no growth * Chest physiotherapy Ventricular Tachycardia NSTEMI Apical Thrombus LLE DVT s/p IVC filter * ASA 81 daily restarted * Code Blue 07/10: SVT==>VT required amiodarone, magnesium, one shock delivered * Code Blue 07/20: vtach s/p amiodarone, fluid, calcium gluconate, required compressions and shock * S/p IVC filter 08/23/18 * Cardiology Dr Francisco on case help appreciated * No cath needed. * Medical management * No chemical anticoagulation in light of bleeding episodes (patient has dysfunction uterine bleeding required blood transfusions; Ob has been consulted earlier in the hospitalization to inpatient workup)-->recommending heparin 5000 unit subq8 (DVT ppx dose) and aspirin 81mg PO daily; likely thrombus is organized a month of anticoagulation; risk is due to bleeding against stroke * d/c Propranolol 5mg PO TID (hold SBP<100 and HR<60) * Eliquis d/c bleeding and anemia-->dvt ppx and aspirin * Echo discussed with Dr. Francisco, patient does have residual clot-->aware we cannot anticoagulate given heavy vaginal bleeding * H/H stable in 10's no vaginal bleeding noted since chemical anticoagulation d/c; c.w Aspirin 81mg PO daily VRE Urinary Tract Infection (resolved) * OFF Contact isolation Diabetes-->chronic * HgBA1c: 7.8 * Hypoglycemic protocol * held Lantus 15 units subcutaneous at bedtime Q12 since 08/23/18 * Hypoglycemic 08/23/18 AM * Accuchecks Q6H * Novolog sliding scale * off Crestor 5mg POqHS secondary to LFTs Acute on Chronic Renal Failure * Nephrology (Dr. Hyde) on board--> help appreciated-->has signed off Hyperthyroidism? Low TSH, and Free T4 Thyroid Storm * Note Thyroid studies taken before amiodarone was given (please advised this is not amiodarone induced her levels were abnormal prior) * Patient does not have prior thyroid history * Endocrinology (Dr. Gayle) on board help appreciated * Thyroid U/S 07/16/18: showed heterogenous thyroid with multiple nodules bilaterally. She will need outpatient FNA Bx of the complex Left Lobe cyst (please see full report) * Methimazole 20mg PO TID * off Propranolol 5 mg PO TID due to hypotension * Monitor LFTs Anemia Likely Secondary to Chronic Diseases Dysfunctional uterine bleeding * Iron normal, TIBC low, Iron Saturation normal, Ferritin normal * Stool occult blood negative * B12 normal * Folate Normal * Transfused 1 unit PRBC 07/22/18, 2 unit of PRBC 08/13/18 1 unit on 08/17/18, 1 unit 08/23/18 * Patient has been seen by OB Hospitalist; no contraindication to anticoagulation * recommend outpatient workup for vaginal bleeding * Case discussed with president mortgage company recommending against eliquis in light of bleeding; recommending for DVT ppx and aspirin if patient can tolerate it Vitamin D deficiency * 50,000 international units once a week (3 doses given so far) * Restart Vitamin D 50,000 IU once a week started on 08/18/18) Thrombocytopenia-->resolved * HIT/RUSTY were negative 13 mm Left Adrenal Nodule * As seen on CT Chest 07/16/[address] abdomen/pelvis * Will need outpatient follow up for cross sectional imaging for better characterization Hypernatremia (resolved) * Start free fluid washes 250ml Q6 via tube feeds * D5 Free water @ 100ml 09/23/18 Deconditioning * Patient needs continued PT/O * reposition q2h * Respiratory attempting to wean but remains on vent. * Brain MRI (09/08/18); no definite mass effect or suspicious extra axial collection. no evidence of acute or subacute brain infarction at this time. Borderline pattern of hydrocephalus * Patient unable to get LTAC given lack of insurance Tardive Dyskinesa * Trazodone discontinued, EPS seem to have improved * Given Ativan 0.5mg IV X1 09/24 to reverse Prophylactic measure * Protonix 40mg GT BID * Lactobacillus 1 cap PO BID * MVI 1x/day * Vitamin C 1,000 NG 1x/day * s/p Trach and Peg * SCD on Right and contraindicated on Left due to DVT * Peg feedings * Pulmcar 40cc/hr * patient had frequent BMs on prior formula; no diarrhea; we have spoken with dietary to change it on 08/19/18 * PICC Line d/c due to coiling * Patient has midline access * Note: speak to patient in [place] to assess neurologic status-->she does follow sometimes * s/p bronchoscopy 08/23 * s/p IVC filter 08/23 * s/p LP 09/15 * s/p right chest tube insertion 09/06; removed 09/15 * patient is FULL CODE * Provigil 50mg PO daily started to promote wakefulness during the day. * Social work note (08/09/18): patient is undocumented, has not health insurance, dc planning will be at home with Disposition: Continue aggressive PT/OT. Patient's to update us with a contact phone number to reach him when not present at bedside. Patient will be getting a friend's phone number. will follow with Mr Isaacs. <Saira Leahy V - Last Filed: 10/04/18 20:47> Objective - Vital Signs/Intake and Output Vital Signs (last 24 hours): Temp Pulse Resp BP Pulse Ox 99.3 F 75 14 91/52 L 99 10/04/18 12:00 10/04/18 18:27 10/04/18 18:27 10/04/18 18:27 10/04/18 18:27 - Medications Medications: Current Medications Acetylcysteine (Acetylcysteine 20%) 4 ml INH RQ4 [facility] Last Admin: 10/04/18 19:32 Dose: Not Given Albuterol/Ipratropium (Duoneb 3 Mg/0.5 Mg (3 Ml) Ud) 3 ml INH RQ4 PRN PRN Reason: Shortness of Breath Ascorbic Acid (Vitamin C 500 Mg Tab) 1,000 mg NG DAILY [facility] [place] Last Admin: 10/04/18 09:59 Dose: 1,000 mg Aspirin (Aspirin Chewable) 81 mg GT DAILY [facility] Last Admin: 10/04/18 09:59 Dose: 81 mg Dextrose (Dextrose 50% Inj) 0 ml IVP .STAT PRN; Protocol PRN Reason: Hypoglycemia Protocol Dextrose (Glutose 15) 0 gm PO .ONCE PRN; Protocol PRN Reason: Hypoglycemia Protocol Ergocalciferol (Drisdol 50,000 Intl Units Cap) 1 cap GT Q7D [facility] Stop: 10/06/18 19:16 Last Admin: 09/29/18 18:20 Dose: 1 cap Glucagon (Glucagen Diagnostic Kit) 0 mg IM .STAT PRN; Protocol PRN Reason: Hypoglycemia Protocol Insulin Aspart (Novolog) 0 unit SC Q12H [facility]; Protocol Last Admin: 10/04/18 12:00 Dose: Not Given Lactobacillus Acidophilus (Bacid Acidophilus) 1 cap PEG Q12 [facility] Last Admin: 10/04/18 10:08 Dose: 1 cap Methimazole (Tapazole) 20 mg PO Q8 [facility] Last Admin: 10/04/18 13:09 Dose: 20 mg Modafinil (Provigil) 50 mg PO DAILY [facility] [place] Last Admin: 10/04/18 09:58 Dose: 50 mg Multivitamins (Hexavitamin) 1 tab PEG DAILY [facility] [place] Last Admin: 10/04/18 09:58 Dose: 1 tab Pantoprazole Sodium (Protonix Susp) 40 mg GT Q12H [facility] [place] Last Admin: 10/04/18 09:58 Dose: 40 mg Tamsulosin HCl (Flomax) 0.4 mg PEG DAILY [facility] [place] Last Admin: 10/04/18 09:58 Dose: 0.4 mg Vitamin A (Vitamin A & D Oint Ud Foilpak) 0.5 ea TOP BID [facility] [place] Last Admin: 10/04/18 18:01 Dose: 0.5 ea - Labs Labs: 10/03/18 07:09 10/03/18 07:09 PT 12.9 SECONDS (9.7-12.2) H 10/02/18 06:10 INR 1.2 10/02/18 06:10 APTT 23 SECONDS (21-34) 10/02/18 06:10 Assessment and Plan (1) Septic shock Status: Acute (2) Acute respiratory failure Status: Acute (3) Urinary tract infection Status: Acute (4) Acute renal failure Status: Acute (5) Aspiration pneumonia Status: Acute (6) Diabetes mellitus Status: Chronic (7) Ventricular arrhythmia Status: Acute (8) Hyperthyroidism Status: Acute (9) Anemia Status: Acute (10) Prophylactic measure Status: Acute Attending/Attestation - Attestation I have personally seen and examined this patient.: Yes I have fully participated in the care of the patient.: Yes I have reviewed all pertinent clinical information, including history, physical exam and plan: Yes Notes (Text): This is a 53-year-old female with a prolonged hospitalization for treatment for septic shock complicated by both pneumonia and urinary tract infections, anoxic encephalopathy likely secondary to 2 cardiac arrest during hospitalization, hyperthyroidism which has been controlled on methimazole, shock liver which is now recovered, history of apical thrombus which is currently being treated with aspirin and is not on anticoagulation secondary to worsening heavy vaginal bleeding which required multiple blood transfusions during hospitalization, history of left lower extremity DVT which falling 1 month of anticoagulation has radiographically disappeared on repeat ultrasound and has now an IVC filter, as well as diabetes, vitamin D deficiency. Patient recently had a chest x-ray completed on October 01 which showed a redemonstration of a loculated pleural effusion over the right side of the chest as well as moderate pulmonary venous congestion. Patient underwent thoracentesis performed by interventional radiologist where in a 1 L fluid was removed. Patient was prophylactically placed on meropenem given prior history of Pseudomonas pneumonia noted during her hospitalization. Pleural culture shows no growth we have stopped meropenem today. Patient noted to have a repeat blood, urine culture and chest x-ray on the evening of the because she was more combative than her usual baseline note there is no labs collected on the and there is no fever noted on record. I did have a discussion with my partner who is covering the patient which wearing was discovered following about the pleural effusion noted on the . Blood cultures from the have been negative however the urine culture does show VRE she is noted to be sensitive to Zyvox however there is no fever and there is no white count. Patient is noted to be incontinent of the urine has been straight cath when she does retain. Also note patient did underwent a lumbar puncture on September 15 HSV-2 IgM antibody, VDRL, and the West Nile are still pending. Physical therapy had signed off on September 24 because patient is not a candidate because she cannot follow directions. Patient would be an ideal candidate for LTAC however she does not have insurance, her is not from this country which limits her ability for services. The other thing is patient still remains trach to vent as well. Patient to be off IV antibiotics. Will monitor for any fever any elevated white count. Patient was put back on contact isolation for new VRE. Also to note patient does have sequential compressive stocking since the follow- up venous Doppler which did indicate that the clot had cleared. Patient does have noted muscle wasting. Patient does have noted mild skin breakdown towards the knees I have spoken with wound care will evaluate the patient to see how we can slow down the rate. Patient had borderline hypotensive about 93/51. Albumin about 2.8 and yesterd ay's blood work. Did order for 2 doses albumin today to see if that will improve blood pressure. Patient noted to have poor prognosis though she has survived many things during her hospitalization. Her who remains in high spirits hopes that she will recover and has been persistently at bedside every single day since being hospitalized in July.
--- NOTE | 2018-10-04 15:51 | CP.PCM.PN ---
Subjective - Date & Time of Evaluation Date of Evaluation: 10/04/18 Time of Evaluation: 08:00 - Subjective Subjective: has persistent vre urine Objective - Vital Signs/Intake and Output Vital Signs (last 24 hours): Temp Pulse Resp BP Pulse Ox 99.3 F 94 H 16 111/70 99 10/04/18 12:00 10/04/18 11:52 10/04/18 11:52 10/04/18 11:52 10/04/18 11:52 Intake and Output: 10/04/18 10/04/18 06:59 18:59 Intake Total 580 Output Total 600 Balance -20 - Medications Medications: Current Medications Acetylcysteine (Acetylcysteine 20%) 4 ml INH RQ4 [facility] Last Admin: 10/04/18 03:54 Dose: Not Given Albuterol/Ipratropium (Duoneb 3 Mg/0.5 Mg (3 Ml) Ud) 3 ml INH RQ4 PRN PRN Reason: Shortness of Breath Ascorbic Acid (Vitamin C 500 Mg Tab) 1,000 mg NG DAILY [facility] Last Admin: 10/04/18 09:59 Dose: 1,000 mg Aspirin (Aspirin Chewable) 81 mg GT DAILY [facility] Last Admin: 10/04/18 09:59 Dose: 81 mg Dextrose (Dextrose 50% Inj) 0 ml IVP .STAT PRN; Protocol PRN Reason: Hypoglycemia Protocol Dextrose (Glutose 15) 0 gm PO .ONCE PRN; Protocol PRN Reason: Hypoglycemia Protocol Ergocalciferol (Drisdol 50,000 Intl Units Cap) 1 cap GT Q7D [facility] Stop: 10/06/18 19:16 Last Admin: 09/29/18 18:20 Dose: 1 cap Glucagon (Glucagen Diagnostic Kit) 0 mg IM .STAT PRN; Protocol PRN Reason: Hypoglycemia Protocol Insulin Aspart (Novolog) 0 unit SC Q12H [facility]; Protocol Last Admin: 10/04/18 12:00 Dose: Not Given Lactobacillus Acidophilus (Bacid Acidophilus) 1 cap PEG Q12 [facility] Last Admin: 10/04/18 10:08 Dose: 1 cap Methimazole (Tapazole) 20 mg PO Q8 [facility] Last Admin: 10/04/18 13:09 Dose: 20 mg Modafinil (Provigil) 50 mg PO DAILY [facility] Last Admin: 10/04/18 09:58 Dose: 50 mg Multivitamins (Hexavitamin) 1 tab PEG DAILY [facility] Last Admin: 10/04/18 09:58 Dose: 1 tab Pantoprazole Sodium (Protonix Susp) 40 mg GT Q12H [facility] Last Admin: 10/04/18 09:58 Dose: 40 mg Tamsulosin HCl (Flomax) 0.4 mg PEG DAILY [facility] Last Admin: 10/04/18 09:58 Dose: 0.4 mg Vitamin A (Vitamin A & D Oint Ud Foilpak) 0.5 ea TOP BID [facility] Last Admin: 10/04/18 09:58 Dose: 0.5 ea - Labs Labs: 10/03/18 07:09 10/03/18 07:09 PT 12.9 SECONDS (9.7-12.2) H 10/02/18 06:10 INR 1.2 10/02/18 06:10 APTT 23 SECONDS (21-34) 10/02/18 06:10 Assessment and Plan (1) NEHA (acute kidney injury) Status: Acute (2) Acute renal failure Status: Acute (3) Acute respiratory failure Status: Acute (4) Aspiration pneumonia Status: Acute (5) Septic shock Status: Acute (6) Urinary tract infection Status: Acute (7) Diabetes mellitus Status: Chronic
--- NOTE | 2018-10-04 16:13 | CP.PCM.PN ---
Subjective - Date & Time of Evaluation Date of Evaluation: 10/04/18 Time of Evaluation: 09:00 - Subjective Subjective: remains obtunded on vent NAD afebrile new cultures VRE urine noted Objective - Vital Signs/Intake and Output Vital Signs (last 24 hours): Temp Pulse Resp BP Pulse Ox 99.3 F 104 H 28 H 98/68 L 92 L 10/04/18 12:00 10/04/18 15:54 10/04/18 15:54 10/04/18 13:52 10/04/18 15:54 Intake and Output: 10/04/18 10/04/18 06:59 18:59 Intake Total 580 Output Total 600 Balance -20 - Medications Medications: Current Medications Acetylcysteine (Acetylcysteine 20%) 4 ml INH RQ4 [facility] Last Admin: 10/04/18 03:54 Dose: Not Given Albuterol/Ipratropium (Duoneb 3 Mg/0.5 Mg (3 Ml) Ud) 3 ml INH RQ4 PRN PRN Reason: Shortness of Breath Ascorbic Acid (Vitamin C 500 Mg Tab) 1,000 mg NG DAILY [facility] Last Admin: 10/04/18 09:59 Dose: 1,000 mg Aspirin (Aspirin Chewable) 81 mg GT DAILY [facility] Last Admin: 10/04/18 09:59 Dose: 81 mg Dextrose (Dextrose 50% Inj) 0 ml IVP .STAT PRN; Protocol PRN Reason: Hypoglycemia Protocol Dextrose (Glutose 15) 0 gm PO .ONCE PRN; Protocol PRN Reason: Hypoglycemia Protocol Ergocalciferol (Drisdol 50,000 Intl Units Cap) 1 cap GT Q7D [facility] Stop: 10/06/18 19:16 Last Admin: 09/29/18 18:20 Dose: 1 cap Glucagon (Glucagen Diagnostic Kit) 0 mg IM .STAT PRN; Protocol PRN Reason: Hypoglycemia Protocol Insulin Aspart (Novolog) 0 unit SC Q12H [facility]; Protocol Last Admin: 10/04/18 12:00 Dose: Not Given Lactobacillus Acidophilus (Bacid Acidophilus) 1 cap PEG Q12 [facility] Last Admin: 10/04/18 10:08 Dose: 1 cap Methimazole (Tapazole) 20 mg PO Q8 [facility] Last Admin: 10/04/18 13:09 Dose: 20 mg Modafinil (Provigil) 50 mg PO DAILY [facility] Last Admin: 10/04/18 09:58 Dose: 50 mg Multivitamins (Hexavitamin) 1 tab PEG DAILY [facility] Last Admin: 10/04/18 09:58 Dose: 1 tab Pantoprazole Sodium (Protonix Susp) 40 mg GT Q12H [facility] Last Admin: 10/04/18 09:58 Dose: 40 mg Tamsulosin HCl (Flomax) 0.4 mg PEG DAILY [facility] Last Admin: 10/04/18 09:58 Dose: 0.4 mg Vitamin A (Vitamin A & D Oint Ud Foilpak) 0.5 ea TOP BID [facility] Last Admin: 10/04/18 09:58 Dose: 0.5 ea - Labs Labs: 10/03/18 07:09 10/03/18 07:09 PT 12.9 SECONDS (9.7-12.2) H 10/02/18 06:10 INR 1.2 10/02/18 06:10 APTT 23 SECONDS (21-34) 10/02/18 06:10 - Constitutional Appears: Confused, Cachectic, Chronically Ill - Head Exam Head Exam: NORMOCEPHALIC - Eye Exam Eye Exam: absent: Scleral icterus - ENT Exam ENT Exam: Mucous Membranes Dry - Neck Exam Neck Exam: absent: Lymphadenopathy - Respiratory Exam Respiratory Exam: Decreased Breath Sounds, Prolonged Expiratory Phase, Rhonchi - Cardiovascular Exam Cardiovascular Exam: REGULAR RHYTHM, +S1, +S2 - GI/Abdominal Exam GI & Abdominal Exam: Distended, Soft. absent: Tenderness - Rectal Exam Rectal Exam: Deferred - Back Exam Back Exam: absent: CVA tenderness (L), CVA tenderness (R) - Neurological Exam Neurological Exam: Altered Assessment and Plan (1) NEHA (acute kidney injury) Status: Acute (2) Acute renal failure Status: Acute (3) Acute respiratory failure Status: Acute (4) Aspiration pneumonia Status: Acute (5) Septic shock Status: Acute (6) Urinary tract infection Status: Acute (7) Diabetes mellitus Status: Chronic (8) Anoxic brain damage Status: Acute - Assessment and Plan (Free Text) Assessment: remains obtunded and vent dependant no fever or leukocytosis Has mcintyre in place - consider 3 way Mcintyre with bladder irrigation instead of systemic antibiotics completed cource of Merrem observe off antibiotics supportive care prognosis poor
[2018-10-04] MEDS ORDERED: Sodium Chloride 0.9% 500 ML IV ONE (17:57)
[2018-10-05] MEDS: (Novolog) Insulin Aspart, Recombinant 100 u/ml 10 ml vial SC SCH ×2 (00:15→11:39)
[2018-10-05] MEDS: Acetylcysteine 20% Inhal Soln (4ml) INH SCH ×6 (03:04→23:30)
[2018-10-05 06:39] LABS: BASO % 0.5 % (0.0-2.0); EOS # 0.1 K/uL (0.0-0.7); EOS % 1.4 % (0.0-4.0); HEMOGLOBIN 7.4 g/dL (11.0-16.0); LYMPH # 0.9 K/uL (1.0-4.3); LYMPH % 9.3 % (20.0-40.0); MEAN CELL VOLUME 92.8 fL (81.0-99.0); MEAN CORPUSCULAR HEMOGLOBIN 31.5 pg (27.0-31.0); MEAN CORPUSCULAR HGB CONC 33.9 g/dL (33.0-37.0); MEAN PLATELET VOLUME 8.1 fL (7.2-11.7); MONO # 0.3 K/uL (0.0-0.8); MONO % 3.6 % (0.0-10.0); NEUT # 7.8 K/uL (1.8-7.0); NEUT % 85.2 % (50.0-75.0); PLATELET COUNT 348 K/uL (130-400); RBC 2.36 Mil/uL (3.80-5.20); RED CELL DISTRIBUTION WIDTH 18.8 % (11.5-14.5); WHITE BLOOD COUNT 9.2 K/uL (4.8-10.8)
[2018-10-05 06:56] LABS: ALB/GLOB RATIO 0.8 (1.0-2.1); ALBUMIN 2.5 g/dL (3.5-5.0); ALT/SGPT 30 U/L (9-52); AST/SGOT 22 U/L (14-36); BLOOD UREA NITROGEN 34 mg/dL (7-17); CALCIUM 7.8 mg/dl (8.6-10.4); GFR NON-AFRICAN AMERICAN > 60
[2018-10-05 08:31] LABS: ANISOCYTOSIS MODERATE; BANDS 2 % (0-2); EOSINOPHIL 1 % (0-4); LYMPHOCYTE 9 % (20-40); MONOCYTE 3 % (0-10); MYELOCYTE 1 % (0-0); NEUTROPHIL 84 % (50-75); PLATELET ESTIMATE NORMAL (NORMAL); TOTAL CELLS COUNTED 100
[2018-10-05] MEDS: Lactobacillus Acidophilus 500 MU Cap PEG SCH ×2 (10:57→21:10)
[2018-10-05] MEDS: Multiple Vitamins Tab PEG SCH (10:58)
[2018-10-05] MEDS: Pantoprazole 40 mg Susp UD GT SCH ×2 (10:58→21:10)
[2018-10-05] MEDS: Vitamins A & D Oint UD Foilpak TOP SCH ×2 (10:58→17:32)
--- NOTE | 2018-10-05 11:38 | RAD ---
HISTORY: r/o pneumonia COMPARISON: Chest x-ray performed 10/04/18 TECHNIQUE: Chest, one view. FINDINGS: Examination limited by habitus and hypoinflation. Right-sided PICC terminates at the level the right axilla. Tracheostomy tube. LUNGS: Hypoinflation. Layering bilateral pleural effusions. Interstitial edema and/or infection. Biapical pleural thickening. CARDIOVASCULAR: Mild cardiomegaly. OSSEOUS STRUCTURES: Degenerative changes. VISUALIZED UPPER ABDOMEN: Unremarkable. OTHER FINDINGS: None. IMPRESSION: Tracheostomy tube. Right-sided PICC extends to the right axilla, likely axillary vein. Hypoinflation. Layering bilateral pleural effusions. Interstitial edema and/or infection. Biapical pleural thickening.
--- NOTE | 2018-10-05 13:15 | CP.PCM.PN ---
<Elijah Weinberg - Last Filed: 10/05/18 15:06> Subjective - Date & Time of Evaluation Date of Evaluation: 10/05/18 Time of Evaluation: 15:06 - Subjective Subjective: PGY-[address] Leahy Patient seen and examined at bedside. Technical difficulty with vent this morning, but issue was resolved. Clinically patient is at her current baseline level of functioning. Repeat chest x-ray for tomorrow to assess for pleural effusion. ROS unable to be obtained. Objective - Vital Signs/Intake and Output Vital Signs (last 24 hours): Temp Pulse Resp BP Pulse Ox 99.1 F 86 24 95/51 L 98 10/05/18 08:00 10/05/18 08:00 10/05/18 08:00 10/05/18 08:00 10/05/18 08:00 Intake and Output: 10/05/18 10/05/18 06:59 18:59 Intake Total 480 Output Total 300 Balance 180 - Medications Medications: Current Medications Acetylcysteine (Acetylcysteine 20%) 4 ml INH RQ4 [facility] Last Admin: 10/05/18 03:04 Dose: Not Given Albuterol/Ipratropium (Duoneb 3 Mg/0.5 Mg (3 Ml) Ud) 3 ml INH RQ4 PRN PRN Reason: Shortness of Breath Ascorbic Acid (Vitamin C 500 Mg Tab) 1,000 mg NG DAILY [facility] Last Admin: 10/05/18 10:58 Dose: 1,000 mg Aspirin (Aspirin Chewable) 81 mg GT DAILY [facility] Last Admin: 10/05/18 10:57 Dose: 81 mg Dextrose (Dextrose 50% Inj) 0 ml IVP .STAT PRN; Protocol PRN Reason: Hypoglycemia Protocol Dextrose (Glutose 15) 0 gm PO .ONCE PRN; Protocol PRN Reason: Hypoglycemia Protocol Ergocalciferol (Drisdol 50,000 Intl Units Cap) 1 cap GT Q7D [facility] Stop: 10/06/18 19:16 Last Admin: 09/29/18 18:20 Dose: 1 cap Glucagon (Glucagen Diagnostic Kit) 0 mg IM .STAT PRN; Protocol PRN Reason: Hypoglycemia Protocol Insulin Aspart (Novolog) 0 unit SC Q12H [facility]; Protocol Last Admin: 10/05/18 11:39 Dose: Not Given Lactobacillus Acidophilus (Bacid Acidophilus) 1 cap PEG Q12 [facility] Last Admin: 10/05/18 10:57 Dose: 1 cap Methimazole (Tapazole) 20 mg PO Q8 [facility] Last Admin: 10/05/18 06:54 Dose: 20 mg Modafinil (Provigil) 50 mg PO DAILY [facility] Last Admin: 10/04/18 09:58 Dose: 50 mg Multivitamins (Hexavitamin) 1 tab PEG DAILY [facility] Last Admin: 10/05/18 10:58 Dose: 1 tab Pantoprazole Sodium (Protonix Susp) 40 mg GT Q12H [facility] Last Admin: 10/05/18 10:58 Dose: 40 mg Tamsulosin HCl (Flomax) 0.4 mg PEG DAILY [facility] Last Admin: 10/05/18 10:57 Dose: 0.4 mg Vitamin A (Vitamin A & D Oint Ud Foilpak) 0.5 ea TOP BID [facility] Last Admin: 10/05/18 10:58 Dose: 0.5 ea - Labs Labs: 10/05/18 06:26 10/05/18 06:26 PT 12.9 SECONDS (9.7-12.2) H 10/02/18 06:10 INR 1.2 10/02/18 06:10 APTT 23 SECONDS (21-34) 10/02/18 06:10 - Constitutional Appears: Non-toxic, No Acute Distress - Head Exam Head Exam: ATRAUMATIC, NORMAL INSPECTION - Eye Exam Eye Exam: EOMI, Normal appearance - ENT Exam ENT Exam: Mucous Membranes Moist - Neck Exam Additional comments: trach - Respiratory Exam Respiratory Exam: Clear to Ausculation Bilateral, NORMAL BREATHING PATTERN. absent: Rhonchi, Wheezes Additional comments: on vent - Cardiovascular Exam Cardiovascular Exam: REGULAR RHYTHM, +S1, +S2 - GI/Abdominal Exam GI & Abdominal Exam: Soft, Normal Bowel Sounds. absent: Tenderness - Extremities Exam Extremities Exam: absent: Pedal Edema, Tenderness - Neurological Exam Neurological Exam: Awake. absent: Alert, Oriented x3 - Psychiatric Exam Psychiatric exam: Flat Affect - Skin Skin Exam: Dry, Intact Assessment and Plan - Assessment and Plan (Free Text) Assessment: Current medical management focusing on these current problems: Loculated Pleural Effusion on CXR -Imaging: - Chest XR 10/01: Interval development of pleural effusions with loculated component along the right lateral chest wall. Moderate pulmonary venous congestion. Underlying pulmonary edema especially in the right lung is also a consideration. Follow up after medical management is recommended to ensure complete resolution. - Chest XR 10/04: Potential pulmonary vascular congestion vs infiltrates with possible trate left pleural effusion. Improved from 10/02 - Chest XR 10/05: Showing increased pulmonary vascular congestion compared to 10/04 - Repeat CXR for tomorrow 10/06 - f/u - S/o thoracentesis with Dr. Chavis10/02 -Right pleural effusion, US guided right thoracentesis 1 liter of brittany colored fluid - Antibiotics discontinued at this time patient not showing signs of infection - Duonebs Q4H [facility] with mucomist VRE + Urine - Patient without fevers or white count at this time - We are not restarting antibiotics at this time - Dr. Brock is recommending three way mcintyre for continuous bladder irrigation Hypotension - S/p 2 units albumin 25% yesterday - Midodrine 2.5 PO BID During this prolonged hospital stay, patient treated for the following medical problems. See prior notes for details. 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 Low TSH, and Free T4 Thyroid Storm -Anemia Likely Secondary to Chronic Diseases Dysfunctional uterine bleeding -Vitamin D deficiency -Thrombocytopenia-->resolved -13 mm Left Adrenal Nodule -Hypernatremia (resolved) -Deconditioning -Tardive Dyskinesa Prophylactic measure * Protonix 40mg GT BID * Lactobacillus 1 cap PO BID * MVI 1x/day * Vitamin C 1,000 NG 1x/day * s/p Trach and Peg * SCD on Right and contraindicated on Left due to DVT * Peg feedings * Pulmcar 40cc/hr * patient had frequent BMs on prior formula; no diarrhea; we have spoken with dietary to change it on 08/19/18 * PICC Line d/c due to coiling * Patient has midline access * Note: speak to patient in alexis to assess neurologic status-->she does follow sometimes * s/p bronchoscopy 08/23 * s/p IVC filter 08/23 * s/p LP 09/15 * s/p right chest tube insertion 09/06; removed 09/15 * patient is FULL CODE * Provigil 50mg PO daily started to promote wakefulness during the day. * Social work note (08/09/18): patient is undocumented, has not health insurance, dc planning will be at home with Disposition: Continue aggressive PT/OT. Patient's to update us with a contact phone number to reach him when not present at bedside. Patient will be getting a friend's phone number. will follow with Mr Isaacs. <Saira Leahy V - Last Filed: 10/24/18 16:48> Objective - Vital Signs/Intake and Output Vital Signs (last 24 hours): Temp Pulse Resp BP Pulse Ox 99.8 F H 90 13 95/54 L 100 10/24/18 13:00 10/24/18 16:00 10/24/18 13:00 10/24/18 13:00 10/24/18 13:00 Intake and Output: 10/24/18 10/24/18 06:59 18:59 Intake Total 540 Output Total 300 Balance 240 - Medications Medications: Current Medications Acetylcysteine (Acetylcysteine 20%) 4 ml INH RQ4 [facility] Last Admin: 10/24/18 16:27 Dose: 4 ml Albuterol/Ipratropium (Duoneb 3 Mg/0.5 Mg (3 Ml) Ud) 3 ml INH RQ4 [facility] Last Admin: 10/24/18 16:27 Dose: 3 ml Ascorbic Acid (Vitamin C 500 Mg Tab) 1,000 mg NG DAILY [facility] Last Admin: 10/24/18 10:42 Dose: 1,000 mg Aspirin (Aspirin Chewable) 81 mg GT DAILY [facility] Last Admin: 10/24/18 10:43 Dose: 81 mg Dextrose (Dextrose 50% Inj) 0 ml IVP .STAT PRN; Protocol PRN Reason: Hypoglycemia Protocol Dextrose (Glutose 15) 0 gm PO .ONCE PRN; Protocol PRN Reason: Hypoglycemia Protocol Furosemide (Lasix) 20 mg IVP ONCE PRN PRN Reason: PLEURAL EFFUSION Last Admin: 10/21/18 21:30 Dose: 20 mg Glucagon (Glucagen Diagnostic Kit) 0 mg IM .STAT PRN; Protocol PRN Reason: Hypoglycemia Protocol Methimazole (Tapazole) 20 mg PO Q8 [facility] Last Admin: 10/24/18 12:59 Dose: 20 mg Midodrine (Proamatine) 10 mg PO TID [facility] Last Admin: 10/24/18 12:59 Dose: 10 mg Modafinil (Provigil) 50 mg PO DAILY [facility] Last Admin: 10/24/18 10:43 Dose: 50 mg Multivitamins (Hexavitamin) 1 tab PEG DAILY [facility] Last Admin: 10/24/18 10:43 Dose: 1 tab Pantoprazole Sodium (Protonix Susp) 40 mg GT Q12H [facility] Last Admin: 10/24/18 10:43 Dose: 40 mg Tamsulosin HCl (Flomax) 0.4 mg PEG DAILY [facility] Last Admin: 10/24/18 10:43 Dose: 0.4 mg Vitamin A (Vitamin A & D Oint Ud Foilpak) 0.5 ea TOP BID [facility] Last Admin: 10/24/18 10:43 Dose: 0.5 ea - Labs Labs: 10/24/18 06:07 10/24/18 06:07 PT 13.3 SECONDS (9.7-12.2) H 10/23/18 06:05 INR 1.2 10/23/18 06:05 APTT 23 SECONDS (21-34) 10/02/18 06:10 Assessment and Plan (1) Septic shock Status: Acute (2) Acute respiratory failure Status: Acute (3) Urinary tract infection Status: Acute (4) Acute renal failure Status: Acute (5) Aspiration pneumonia Status: Acute (6) Diabetes mellitus Status: Chronic (7) Ventricular arrhythmia Status: Acute (8) Hyperthyroidism Status: Acute (9) Anemia Status: Acute (10) Prophylactic measure Status: Acute Attending/Attestation - Attestation I have personally seen and examined this patient.: Yes I have fully participated in the care of the patient.: Yes I have reviewed all pertinent clinical information, including history, physical exam and plan: Yes
[2018-10-05] MEDS: Albumin Human 25% (12.5 gm/50 ml) IV SCH ×2 (13:51→15:50)
[2018-10-05] MEDS: Modafinil 50 MG TAB PO SCH (13:52)
[2018-10-05] MEDS: Albuterol-Ipratrop 3 mg / 0.5 (3 ml) UD INH SCH ×2 (19:41→23:30)
[2018-10-06] MEDS: (Novolog) Insulin Aspart, Recombinant 100 u/ml 10 ml vial SC SCH ×2 (00:20→12:57)
[2018-10-06] MEDS: Albuterol-Ipratrop 3 mg / 0.5 (3 ml) UD INH SCH ×5 (03:10→23:44)
[2018-10-06] MEDS: Acetylcysteine 20% Inhal Soln (4ml) INH SCH ×5 (03:10→23:44)
[2018-10-06] MEDS: Lactobacillus Acidophilus 500 MU Cap PEG SCH ×2 (09:45→22:45)
[2018-10-06] MEDS: Vitamins A & D Oint UD Foilpak TOP SCH ×2 (09:46→17:13)
[2018-10-06] MEDS: Multiple Vitamins Tab PEG SCH (09:46)
[2018-10-06] MEDS: Modafinil 50 MG TAB PO SCH (09:46)
[2018-10-06] MEDS: Pantoprazole 40 mg Susp UD GT SCH ×2 (09:46→21:37)
--- NOTE | 2018-10-06 10:34 | CP.PCM.PN ---
<Amina Gomez P - Last Filed: 10/06/18 20:21> Subjective - Date & Time of Evaluation Date of Evaluation: 10/06/18 Time of Evaluation: 07:15 - Subjective Subjective: PGY-[address] Leahy. Patient seen and evaluated. She is sitting in her recliner. No acute events overnight. Patient with new mcintyre and with CBI running. Unable to obtain HPI as patient is non-verbal. Objective - Vital Signs/Intake and Output Vital Signs (last 24 hours): Temp Pulse Resp BP Pulse Ox 98.7 F 83 18 102/64 100 10/06/18 08:00 10/06/18 08:00 10/06/18 08:00 10/06/18 08:00 10/06/18 08:00 Intake and Output: 10/06/18 10/06/18 06:59 18:59 Intake Total 4020 Output Total 4300 Balance -280 - Medications Medications: Current Medications Acetylcysteine (Acetylcysteine 20%) 4 ml INH RQ4 [facility] Last Admin: 10/06/18 07:30 Dose: Not Given Albuterol/Ipratropium (Duoneb 3 Mg/0.5 Mg (3 Ml) Ud) 3 ml INH RQ4 [facility] Last Admin: 10/06/18 07:30 Dose: Not Given Ascorbic Acid (Vitamin C 500 Mg Tab) 1,000 mg NG DAILY [facility] Last Admin: 10/06/18 09:46 Dose: 1,000 mg Aspirin (Aspirin Chewable) 81 mg GT DAILY [facility] Last Admin: 10/06/18 09:45 Dose: 81 mg Dextrose (Dextrose 50% Inj) 0 ml IVP .STAT PRN; Protocol PRN Reason: Hypoglycemia Protocol Dextrose (Glutose 15) 0 gm PO .ONCE PRN; Protocol PRN Reason: Hypoglycemia Protocol Ergocalciferol (Drisdol 50,000 Intl Units Cap) 1 cap GT Q7D [facility] Stop: 10/06/18 19:16 Last Admin: 09/29/18 18:20 Dose: 1 cap Glucagon (Glucagen Diagnostic Kit) 0 mg IM .STAT PRN; Protocol PRN Reason: Hypoglycemia Protocol Insulin Aspart (Novolog) 0 unit SC Q12H [facility]; Protocol Last Admin: 10/06/18 00:20 Dose: 2 u Lactobacillus Acidophilus (Bacid Acidophilus) 1 cap PEG Q12 [facility] Last Admin: 10/06/18 09:45 Dose: 1 cap Methimazole (Tapazole) 20 mg PO Q8 [facility] Last Admin: 10/06/18 06:35 Dose: 20 mg Midodrine (Proamatine) 2.5 mg PO TID [facility] Last Admin: 10/06/18 09:46 Dose: 2.5 mg Modafinil (Provigil) 50 mg PO DAILY [facility] Last Admin: 10/06/18 09:46 Dose: 50 mg Multivitamins (Hexavitamin) 1 tab PEG DAILY [facility] Last Admin: 10/06/18 09:46 Dose: 1 tab Pantoprazole Sodium (Protonix Susp) 40 mg GT Q12H [facility] Last Admin: 10/06/18 09:46 Dose: 40 mg Tamsulosin HCl (Flomax) 0.4 mg PEG DAILY [facility] Last Admin: 10/06/18 09:45 Dose: 0.4 mg Vitamin A (Vitamin A & D Oint Ud Foilpak) 0.5 ea TOP BID [facility] Last Admin: 10/06/18 09:46 Dose: 0.5 ea - Labs Labs: 10/05/18 06:26 10/05/18 06:26 PT 12.9 SECONDS (9.7-12.2) H 10/02/18 06:10 INR 1.2 10/02/18 06:10 APTT 23 SECONDS (21-34) 10/02/18 06:10 - Additional Findings Additional findings: - Constitutional Appears: Non-toxic, No Acute Distress - Head Exam Head Exam: ATRAUMATIC, NORMAL INSPECTION - Eye Exam Eye Exam: EOMI, Normal appearance - ENT Exam ENT Exam: Moist mucous membranes - Neck Exam Additional comments: tracheostomy in place - Respiratory Exam Respiratory Exam: Clear to Ausculation Bilateral, NORMAL BREATHING PATTERN. absent: Rhonchi, Wheezes Additional comments: on vent - Cardiovascular Exam Cardiovascular Exam: REGULAR RHYTHM, +S1, +S2 - GI/Abdominal Exam GI & Abdominal Exam: Soft, Normal Bowel Sounds. absent: Tenderness - Extremities Exam Extremities Exam: absent: Pedal Edema, Tenderness - Neurological Exam Neurological Exam: Awake. Non-verbal. absent: Alert, Oriented x3 - Psychiatric Exam Psychiatric exam: Flat Affect - Skin Skin Exam: Dry, Intact Assessment and Plan - Assessment and Plan (Free Text) Plan: Current medical management focusing on these current problems: Loculated Pleural Effusion on CXR -Imaging: - Chest XR 10/01: Interval development of pleural effusions with loculated component along the right lateral chest wall. Moderate pulmonary venous congestion. Underlying pulmonary edema especially in the right lung is also a consideration. Follow up after medical management is recommended to ensure complete resolution. - Chest XR 10/04: Potential pulmonary vascular congestion vs infiltrates with possible trate left pleural effusion. Improved from 10/02 - Chest XR 10/05: Showing increased pulmonary vascular congestion compared to 10/04 - Repeat CXR- f/u - S/o thoracentesis with Dr. Chavis10/02 -Right pleural effusion, US guided right thoracentesis 1 liter of brittany colored fluid - Antibiotics discontinued at this time patient not showing signs of infection - Duonebs Q4H [facility] with mucomist VRE + Urine 10/06: new mcintyre placed and has CBI - Patient without fevers or white count at this time - We are not restarting antibiotics at this time - Dr. Brock is recommending three way mcintyre for continuous bladder irrigation Hypotension - S/p 2 units albumin 25% yesterday - Midodrine 2.5 PO BID During this prolonged hospital stay, patient treated for the following medical problems. See prior notes for details. 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 Low TSH, and Free T4 Thyroid Storm -Anemia Likely Secondary to Chronic Diseases Dysfunctional uterine bleeding -Vitamin D deficiency -Thrombocytopenia-->resolved -13 mm Left Adrenal Nodule -Hypernatremia (resolved) -Deconditioning -Tardive Dyskinesa Prophylactic measure * Protonix 40mg GT BID * Lactobacillus 1 cap PO BID * MVI 1x/day * Vitamin C 1,000 NG 1x/day * s/p Trach and Peg * SCD on Right and contraindicated on Left due to DVT * Peg feedings * Pulmcar 40cc/hr * patient had frequent BMs on prior formula; no diarrhea; we have spoken with dietary to change it on 08/19/18 * PICC Line d/c due to coiling * Patient has midline access * Note: speak to patient in alexis to assess neurologic status-->she does follow sometimes * s/p bronchoscopy 08/23 * s/p IVC filter 08/23 * s/p LP 09/15 * s/p right chest tube insertion 09/06; removed 09/15 * patient is FULL CODE * Provigil 50mg PO daily started to promote wakefulness during the day. * Social work note (08/09/18): patient is undocumented, has not health insurance, dc planning will be at home with Disposition: Continue aggressive PT/OT. Will follow with Mr Isaacs regarding a contact phone number to reach him when not present at bedside. Case discussed with Dr. Leahy. Amina Gomez, PGY-1. <Saira Leahy V - Last Filed: 10/24/18 16:49> Objective - Vital Signs/Intake and Output Vital Signs (last 24 hours): Temp Pulse Resp BP Pulse Ox 99.8 F H 90 13 95/54 L 100 10/24/18 13:00 10/24/18 16:00 10/24/18 13:00 10/24/18 13:00 10/24/18 13:00 Intake and Output: 10/24/18 10/24/18 06:59 18:59 Intake Total 540 Output Total 300 Balance 240 - Medications Medications: Current Medications Acetylcysteine (Acetylcysteine 20%) 4 ml INH RQ4 [facility] Last Admin: 10/24/18 16:27 Dose: 4 ml Albuterol/Ipratropium (Duoneb 3 Mg/0.5 Mg (3 Ml) Ud) 3 ml INH RQ4 [facility] Last Admin: 10/24/18 16:27 Dose: 3 ml Ascorbic Acid (Vitamin C 500 Mg Tab) 1,000 mg NG DAILY [facility] Last Admin: 10/24/18 10:42 Dose: 1,000 mg Aspirin (Aspirin Chewable) 81 mg GT DAILY [facility] Last Admin: 10/24/18 10:43 Dose: 81 mg Dextrose (Dextrose 50% Inj) 0 ml IVP .STAT PRN; Protocol PRN Reason: Hypoglycemia Protocol Dextrose (Glutose 15) 0 gm PO .ONCE PRN; Protocol PRN Reason: Hypoglycemia Protocol Furosemide (Lasix) 20 mg IVP ONCE PRN PRN Reason: PLEURAL EFFUSION Last Admin: 10/21/18 21:30 Dose: 20 mg Glucagon (Glucagen Diagnostic Kit) 0 mg IM .STAT PRN; Protocol PRN Reason: Hypoglycemia Protocol Methimazole (Tapazole) 20 mg PO Q8 [facility] Last Admin: 10/24/18 12:59 Dose: 20 mg Midodrine (Proamatine) 10 mg PO TID [facility] Last Admin: 10/24/18 12:59 Dose: 10 mg Modafinil (Provigil) 50 mg PO DAILY [facility] Last Admin: 10/24/18 10:43 Dose: 50 mg Multivitamins (Hexavitamin) 1 tab PEG DAILY [facility] Last Admin: 10/24/18 10:43 Dose: 1 tab Pantoprazole Sodium (Protonix Susp) 40 mg GT Q12H [facility] Last Admin: 10/24/18 10:43 Dose: 40 mg Tamsulosin HCl (Flomax) 0.4 mg PEG DAILY [facility] Last Admin: 10/24/18 10:43 Dose: 0.4 mg Vitamin A (Vitamin A & D Oint Ud Foilpak) 0.5 ea TOP BID [facility] Last Admin: 10/24/18 10:43 Dose: 0.5 ea - Labs Labs: 10/24/18 06:07 10/24/18 06:07 PT 13.3 SECONDS (9.7-12.2) H 10/23/18 06:05 INR 1.2 10/23/18 06:05 APTT 23 SECONDS (21-34) 10/02/18 06:10 Assessment and Plan (1) Septic shock Status: Acute (2) Acute respiratory failure Status: Acute (3) Urinary tract infection Status: Acute (4) Acute renal failure Status: Acute (5) Aspiration pneumonia Status: Acute (6) Diabetes mellitus Status: Chronic (7) Ventricular arrhythmia Status: Acute (8) Hyperthyroidism Status: Acute (9) Anemia Status: Acute (10) Prophylactic measure Status: Acute Attending/Attestation - Attestation I have personally seen and examined this patient.: Yes I have fully participated in the care of the patient.: Yes I have reviewed all pertinent clinical information, including history, physical exam and plan: Yes
[2018-10-06] MEDS: Ergocalciferol 50,000 Intl Units Cap GT SCH (18:50)
[2018-10-07] MEDS: (Novolog) Insulin Aspart, Recombinant 100 u/ml 10 ml vial SC SCH ×2 (00:39→12:00)
[2018-10-07] MEDS: Albuterol-Ipratrop 3 mg / 0.5 (3 ml) UD INH SCH ×5 (03:11→19:40)
[2018-10-07] MEDS: Acetylcysteine 20% Inhal Soln (4ml) INH SCH ×5 (03:11→19:40)
[2018-10-07 06:30] LABS: BASO % 0.3 % (0.0-2.0); EOS % 0.3 % (0.0-4.0); HEMOGLOBIN 8.3 g/dL (11.0-16.0); LYMPH # 0.4 K/uL (1.0-4.3); LYMPH % 4.8 % (20.0-40.0); MEAN CELL VOLUME 94.2 fL (81.0-99.0); MEAN CORPUSCULAR HEMOGLOBIN 31.2 pg (27.0-31.0); MEAN CORPUSCULAR HGB CONC 33.1 g/dL (33.0-37.0); MEAN PLATELET VOLUME 7.9 fL (7.2-11.7); MONO # 0.3 K/uL (0.0-0.8); MONO % 3.4 % (0.0-10.0); NEUT # 8.4 K/uL (1.8-7.0); NEUT % 91.2 % (50.0-75.0); PLATELET COUNT 358 K/uL (130-400); RBC 2.65 Mil/uL (3.80-5.20); RED CELL DISTRIBUTION WIDTH 19.8 % (11.5-14.5); WHITE BLOOD COUNT 9.3 K/uL (4.8-10.8)
[2018-10-07 06:42] LABS: ALT/SGPT 28 U/L (9-52); AST/SGOT 19 U/L (14-36); BLOOD UREA NITROGEN 38 mg/dL (7-17); GFR NON-AFRICAN AMERICAN > 60
[2018-10-07 08:35] LABS: ANISOCYTOSIS MODERATE; BANDS 1 % (0-2); HYPOCHROMIC SLIGHT; LYMPHOCYTE 6 % (20-40); MONOCYTE 6 % (0-10); NEUTROPHIL 87 % (50-75); PLATELET ESTIMATE NORMAL (NORMAL); POLYCHROMIC SLIGHT; TOTAL CELLS COUNTED 100
[2018-10-07 08:36] LABS: OVALOCYTES SLIGHT; POIKILOCYTOSIS SLIGHT; SCHISTOCYTES SLIGHT; TEARDROP CELLS SLIGHT
--- NOTE | 2018-10-07 08:54 | CP.PCM.PN ---
Subjective - Date & Time of Evaluation Date of Evaluation: 10/07/18 Time of Evaluation: 08:50 - Subjective Subjective: Medical attending note Patient seen, examined. Unable to review of systems secondary to clinical condition. No family present at bedside. I discussed with daytime nurse patient was awake all night. Patient sleeping at bedside. No other acute events overnight. Objective - Vital Signs/Intake and Output Vital Signs (last 24 hours): Temp Pulse Resp BP Pulse Ox 98 F 109 H 18 96/55 L 98 10/07/18 05:00 10/07/18 05:00 10/07/18 05:00 10/07/18 05:00 10/07/18 05:00 Intake and Output: 10/07/18 10/07/18 06:59 18:59 Intake Total 3000 3780 Output Total 3525 4200 Balance -525 -420 - Medications Medications: Current Medications Acetylcysteine (Acetylcysteine 20%) 4 ml INH RQ4 [facility] Last Admin: 10/07/18 07:37 Dose: 4 ml Albuterol/Ipratropium (Duoneb 3 Mg/0.5 Mg (3 Ml) Ud) 3 ml INH RQ4 [facility] Last Admin: 10/07/18 07:37 Dose: 3 ml Ascorbic Acid (Vitamin C 500 Mg Tab) 1,000 mg NG DAILY [facility] Last Admin: 10/06/18 09:46 Dose: 1,000 mg Aspirin (Aspirin Chewable) 81 mg GT DAILY [facility] Last Admin: 10/06/18 09:45 Dose: 81 mg Dextrose (Dextrose 50% Inj) 0 ml IVP .STAT PRN; Protocol PRN Reason: Hypoglycemia Protocol Dextrose (Glutose 15) 0 gm PO .ONCE PRN; Protocol PRN Reason: Hypoglycemia Protocol Glucagon (Glucagen Diagnostic Kit) 0 mg IM .STAT PRN; Protocol PRN Reason: Hypoglycemia Protocol Insulin Aspart (Novolog) 0 unit SC Q12H [facility]; Protocol Last Admin: 10/07/18 00:39 Dose: 3 u Methimazole (Tapazole) 20 mg PO Q8 [facility] Last Admin: 10/07/18 06:39 Dose: 20 mg Midodrine (Proamatine) 5 mg PO TID [facility] Modafinil (Provigil) 50 mg PO DAILY [facility] Last Admin: 10/06/18 09:46 Dose: 50 mg Multivitamins (Hexavitamin) 1 tab PEG DAILY [facility] Last Admin: 10/06/18 09:46 Dose: 1 tab Pantoprazole Sodium (Protonix Susp) 40 mg GT Q12H [facility] Last Admin: 10/06/18 21:37 Dose: 40 mg Tamsulosin HCl (Flomax) 0.4 mg PEG DAILY [facility] Last Admin: 10/06/18 09:45 Dose: 0.4 mg Vitamin A (Vitamin A & D Oint Ud Foilpak) 0.5 ea TOP BID [facility] Last Admin: 10/06/18 17:13 Dose: 0.5 ea - Labs Labs: 10/07/18 06:26 10/07/18 06:26 PT 12.9 SECONDS (9.7-12.2) H 10/02/18 06:10 INR 1.2 10/02/18 06:10 APTT 23 SECONDS (21-34) 10/02/18 06:10 - Constitutional Appears: Non-toxic, No Acute Distress - Head Exam Head Exam: NORMAL INSPECTION - Eye Exam Eye Exam: EOMI - ENT Exam ENT Exam: Mucous Membranes Moist - Respiratory Exam Respiratory Exam: Decreased Breath Sounds, Rales, NORMAL BREATHING PATTERN - Cardiovascular Exam Cardiovascular Exam: REGULAR RHYTHM, +S1, +S2 - GI/Abdominal Exam GI & Abdominal Exam: Distended, Soft, Normal Bowel Sounds. absent: Firm, Guarding, Rigid, Tenderness, Rebound Additional comments: Positive PEG clean dry intact - Extremities Exam Extremities Exam: absent: Pedal Edema, Tenderness Additional comments: prevalon boots muscle wasting skin breakdown noted over flexor surfaces (dressing over) - Neurological Exam Neurological Exam: Altered - Skin Skin Exam: Normal Color, Warm Assessment and Plan (1) Septic shock Status: Acute (2) Acute respiratory failure Status: Acute (3) Urinary tract infection Status: Acute (4) Acute renal failure Status: Acute (5) Aspiration pneumonia Status: Acute (6) Diabetes mellitus Status: Chronic (7) Ventricular arrhythmia Status: Acute (8) Hyperthyroidism Status: Acute (9) Anemia Status: Acute (10) Prophylactic measure Status: Acute Attending/Attestation - Attestation I have personally seen and examined this patient.: Yes I have fully participated in the care of the patient.: Yes I have reviewed all pertinent clinical information, including history, physical exam and plan: Yes Notes (Text): This is a 53-year-old female with a prolonged hospitalization for treatment for septic shock complicated by both pneumonia and urinary tract infections, anoxic encephalopathy likely secondary to 2 cardiac arrest during hospitalization, hyperthyroidism which has been controlled on methimazole, shock liver which is now recovered, history of apical thrombus which is currently being treated with aspirin and is not on anticoagulation secondary to worsening heavy vaginal bleeding which required multiple blood transfusions during hospitalization, h istory of left lower extremity DVT which falling 1 month of anticoagulation has radiographically disappeared on repeat ultrasound and has now an IVC filter, as well as diabetes, vitamin D deficiency. Patient recently had a chest x-ray completed on October 01 which showed a redemonstration of a loculated pleural effusion over the right side of the chest as well as moderate pulmonary venous congestion. Patient underwent thoracentesis performed by interventional radiologist where in a 1 L fluid was removed. Patient was prophylactically placed on meropenem given prior history of Pseudomonas pneumonia noted during her hospitalization. Pleural culture shows no growth we have stopped meropenem Oct 04. Patient noted to have a repeat blood, urine culture and chest x-ray on the evening of the because she was more combative than her usual baseline note there is no labs collected on the and there is no fever noted on record. I did have a discussion with my partner who is covering the patient which wearing was discovered following about the pleural effusion noted on the . Blood cultures from the have been negative however the urine culture does show VRE she is noted to be sensitive to Zyvox however there is no fever and there is no white count. Patient is noted to be incontinent of the urine has been straight cath when she does retain. Patient is on [address] [place] since 10/05/17 evening with CBI to clean out urine. Patient is off antibiotic since 10/05/17. No fever, nor white count. Also note patient did underwent a lumbar puncture on September 15 HSV-2 IgM antibody, VDRL, and the West Nile are still pending. Physical therapy had signed off on September 24 because patient is not a candidate because she cannot follow directions. Patient would be an ideal candidate for LTAC however she does not have insurance, her is not from this country which limits her ability for services. The other thing is patient still remains trach to vent as well. Also to note patient does have sequential compressive stocking since the follow- up venous Doppler which did indicate that the clot had cleared. Patient does have noted muscle wasting. Wound care re-evaluated the patient on 10/05/17 for skin break down over the flexor surfaces over the knee. New re commendations were placed. Patient's midodrine increased to 5mg PO TID to increase blood pressure. Patient noted to have poor prognosis though she has survived many things during her hospitalization. Her who remains in high spirits hopes that she will recover and has been persistently at bedside every single day since being hospitalized in July.
[2018-10-07] MEDS ORDERED: Albuterol-Ipratrop 3 mg / 0.5 (3 ml) UD INH STA (09:00)
[2018-10-07] MEDS: Modafinil 50 MG TAB PO SCH (09:25)
[2018-10-07] MEDS: Pantoprazole 40 mg Susp UD GT SCH ×2 (09:26→21:47)
[2018-10-07] MEDS: Multiple Vitamins Tab PEG SCH (09:26)
[2018-10-07] MEDS: Vitamins A & D Oint UD Foilpak TOP SCH ×2 (09:26→18:16)
[2018-10-08] MEDS: Acetylcysteine 20% Inhal Soln (4ml) INH SCH ×6 (00:08→20:01)
[2018-10-08] MEDS: Albuterol-Ipratrop 3 mg / 0.5 (3 ml) UD INH SCH ×6 (00:08→20:00)
[2018-10-08] MEDS: Modafinil 50 MG TAB PO SCH (09:29)
[2018-10-08] MEDS: Multiple Vitamins Tab PEG SCH (09:29)
[2018-10-08] MEDS: Pantoprazole 40 mg Susp UD GT SCH ×2 (09:30→21:19)
[2018-10-08] MEDS: Vitamins A & D Oint UD Foilpak TOP SCH ×2 (09:30→18:00)
[2018-10-08] MEDS: (Novolog) Insulin Aspart, Recombinant 100 u/ml 10 ml vial SC SCH ×2 (12:00)
--- NOTE | 2018-10-08 15:37 | CP.PCM.PN ---
Subjective - Date & Time of Evaluation Date of Evaluation: 10/08/18 Time of Evaluation: 12:00 - Subjective Subjective: PGY-[address] Leahy. Patient seen and examined at bedside. As per nurse, patient was very restless today and had to be repositioned multiple times. Now, however she is sleeping comfortably. She is afebrile. Tolerating feedings. CBI is running. Patient's has not come in yet today. Unable to obtain history due to clinical condition. Objective - Vital Signs/Intake and Output Vital Signs (last 24 hours): Temp Pulse Resp BP Pulse Ox 97.7 F 93 H 20 103/61 96 10/08/18 13:00 10/08/18 13:00 10/08/18 13:00 10/08/18 13:00 10/08/18 13:00 Intake and Output: 10/08/18 10/08/18 06:59 18:59 Intake Total 6880 Output Total 7400 Balance -520 - Medications Medications: Current Medications Acetylcysteine (Acetylcysteine 20%) 4 ml INH RQ4 [facility] Last Admin: 10/08/18 11:40 Dose: 4 ml Albuterol/Ipratropium (Duoneb 3 Mg/0.5 Mg (3 Ml) Ud) 3 ml INH RQ4 [facility] Last Admin: 10/08/18 11:40 Dose: 3 ml Ascorbic Acid (Vitamin C 500 Mg Tab) 1,000 mg NG DAILY [facility] Last Admin: 10/08/18 09:29 Dose: 1,000 mg Aspirin (Aspirin Chewable) 81 mg GT DAILY [facility] Last Admin: 10/08/18 09:29 Dose: 81 mg Dextrose (Dextrose 50% Inj) 0 ml IVP .STAT PRN; Protocol PRN Reason: Hypoglycemia Protocol Dextrose (Glutose 15) 0 gm PO .ONCE PRN; Protocol PRN Reason: Hypoglycemia Protocol Glucagon (Glucagen Diagnostic Kit) 0 mg IM .STAT PRN; Protocol PRN Reason: Hypoglycemia Protocol Insulin Aspart (Novolog) 0 unit SC Q12H [facility]; Protocol Last Admin: 10/08/18 12:00 Dose: Not Given Methimazole (Tapazole) 20 mg PO Q8 [facility] Last Admin: 10/08/18 14:47 Dose: 20 mg Midodrine (Proamatine) 5 mg PO TID [facility] Last Admin: 10/08/18 14:47 Dose: 5 mg Modafinil (Provigil) 50 mg PO DAILY [facility] Last Admin: 10/08/18 09:29 Dose: 50 mg Multivitamins (Hexavitamin) 1 tab PEG DAILY [facility] Last Admin: 10/08/18 09:29 Dose: 1 tab Pantoprazole Sodium (Protonix Susp) 40 mg GT Q12H [facility] Last Admin: 10/08/18 09:30 Dose: 40 mg Tamsulosin HCl (Flomax) 0.4 mg PEG DAILY [facility] Last Admin: 10/08/18 09:29 Dose: 0.4 mg Vitamin A (Vitamin A & D Oint Ud Foilpak) 0.5 ea TOP BID [facility] Last Admin: 10/08/18 09:30 Dose: 0.5 ea - Labs Labs: 10/07/18 06:26 10/07/18 06:26 PT 12.9 SECONDS (9.7-12.2) H 10/02/18 06:10 INR 1.2 10/02/18 06:10 APTT 23 SECONDS (21-34) 10/02/18 06:10 - Additional Findings Additional findings: - Constitutional Appears: Non-toxic, No Acute Distress - Head Exam Head Exam: ATRAUMATIC, NORMAL INSPECTION - Eye Exam Eye Exam: EOMI, Normal appearance - ENT Exam ENT Exam: Moist mucous membranes - Neck Exam Additional comments: tracheotomy in place - Respiratory Exam Respiratory Exam: Clear to Ausculation Bilateral, NORMAL BREATHING PATTERN. absent: Rhonchi, Wheezes Additional comments: on ventilator - Cardiovascular Exam Cardiovascular Exam: REGULAR RHYTHM, +S1, +S2 - GI/Abdominal Exam GI & Abdominal Exam: Soft, Normal Bowel Sounds. absent: Tenderness PEG tube in place - Extremities Exam Extremities Exam: absent: Pedal Edema, Tenderness - Neurological Exam Neurological Exam: Patient is sleeping - Skin Skin Exam: Dry, Intact Assessment and Plan - Assessment and Plan (Free Text) Plan: Current medical management focusing on these current problems: Loculated Pleural Effusion on CXR -Imaging: - Chest XR 10/01: Interval development of pleural effusions with loculated component along the right lateral chest wall. Moderate pulmonary venous congestion. Underlying pulmonary edema especially in the right lung is also a consideration. Follow up after medical management is recommended to ensure complete resolution. - Chest XR 10/04: Potential pulmonary vascular congestion vs infiltrates with possible trate left pleural effusion. Improved from 10/02 - Chest XR 10/05: Showing increased pulmonary vascular congestion compared to 10/04 - Repeat CXR- f/u - S/o thoracentesis with Dr. Chavis10/02 -Right pleural effusion, US guided right thoracentesis 1 liter of brittany colored fluid - Antibiotics discontinued at this time patient not showing signs of infection - Duonebs Q4H [facility] with mucomist VRE + Urine 10/06: new mcintyre placed and has CBI - Patient without fevers or white count at this time - We are not restarting antibiotics at this time - Dr. Brock is recommending three way mcintyre for continuous bladder irrigation Hypotension - S/p 2 units albumin 25% yesterday - Midodrine 2.5 PO BID During this prolonged hospital stay, patient treated for the following medical problems. See prior notes for details. 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 Low TSH, and Free T4 Thyroid Storm -Anemia Likely Secondary to Chronic Diseases Dysfunctional uterine bleeding -Vitamin D deficiency -Thrombocytopenia-->resolved -13 mm Left Adrenal Nodule -Hypernatremia (resolved) -Deconditioning -Tardive Dyskinesa Prophylactic measure * Protonix 40mg GT BID * Lactobacillus 1 cap PO BID * MVI 1x/day * Vitamin C 1,000 NG 1x/day * s/p Trach and Peg * SCD on Right and contraindicated on Left due to DVT * Peg feedings * Pulmcar 40cc/hr * patient had frequent BMs on prior formula; no diarrhea; we have spoken with dietary to change it on 08/19/18 * PICC Line d/c due to coiling * Patient has midline access * Note: speak to patient in [place] to assess neurologic status-->she does follow sometimes * s/p bronchoscopy 08/23 * s/p IVC filter 08/23 * s/p LP 09/15 * s/p right chest tube insertion 09/06; removed 09/15 * patient is FULL CODE * Provigil 50mg PO daily started to promote wakefulness during the day. * Social work note (08/09/18): patient is undocumented, has not health insurance, dc planning will be at home with Disposition: Continue aggressive PT/OT. Will follow with Mr Isaacs regarding a contact phone number to reach him when not present at bedside. Case discussed with Dr. Leahy. Amina Gomez, PGY-1.
[2018-10-08] MEDS: Lactobacillus Acidophilus 500 MU Cap GT SCH (18:00)
--- NOTE | 2018-10-08 18:06 | CP.PCM.PN ---
Subjective - Date & Time of Evaluation Date of Evaluation: 10/08/18 Time of Evaluation: 17:30 - Subjective Subjective: Medical attending note Patient seen and examined. No acute events overnight. Patient was sleeping comfortably throughout the day or per nursing staff. Patient's not at bedside. Unable to review of systems secondary to clinical condition. Patient's vital signs remained stable. Patient not able to do CPAP trial for the past couple days. We will continue to monitor. Objective - Vital Signs/Intake and Output Vital Signs (last 24 hours): Temp Pulse Resp BP Pulse Ox 97.7 F 93 H 20 103/61 96 10/08/18 13:00 10/08/18 13:00 10/08/18 13:00 10/08/18 13:00 10/08/18 13:00 Intake and Output: 10/08/18 10/08/18 06:59 18:59 Intake Total 6880 Output Total 7400 Balance -520 - Medications Medications: Current Medications Acetylcysteine (Acetylcysteine 20%) 4 ml INH RQ4 [facility] Last Admin: 10/08/18 11:40 Dose: 4 ml Albuterol/Ipratropium (Duoneb 3 Mg/0.5 Mg (3 Ml) Ud) 3 ml INH RQ4 [facility] Last Admin: 10/08/18 11:40 Dose: 3 ml Ascorbic Acid (Vitamin C 500 Mg Tab) 1,000 mg NG DAILY [facility] Last Admin: 10/08/18 09:29 Dose: 1,000 mg Aspirin (Aspirin Chewable) 81 mg GT DAILY [facility] Last Admin: 10/08/18 09:29 Dose: 81 mg Dextrose (Dextrose 50% Inj) 0 ml IVP .STAT PRN; Protocol PRN Reason: Hypoglycemia Protocol Dextrose (Glutose 15) 0 gm PO .ONCE PRN; Protocol PRN Reason: Hypoglycemia Protocol Glucagon (Glucagen Diagnostic Kit) 0 mg IM .STAT PRN; Protocol PRN Reason: Hypoglycemia Protocol Insulin Aspart (Novolog) 0 unit SC Q12H [facility]; Protocol Last Admin: 10/08/18 12:00 Dose: Not Given Lactobacillus Acidophilus (Bacid Acidophilus) 1 cap GT BID [facility] Methimazole (Tapazole) 20 mg PO Q8 [facility] Last Admin: 10/08/18 14:47 Dose: 20 mg Midodrine (Proamatine) 5 mg PO TID [facility] Last Admin: 10/08/18 17:53 Dose: 5 mg Modafinil (Provigil) 50 mg PO DAILY [facility] Last Admin: 10/08/18 09:29 Dose: 50 mg Multivitamins (Hexavitamin) 1 tab PEG DAILY [facility] Last Admin: 10/08/18 09:29 Dose: 1 tab Pantoprazole Sodium (Protonix Susp) 40 mg GT Q12H [facility] Last Admin: 10/08/18 09:30 Dose: 40 mg Tamsulosin HCl (Flomax) 0.4 mg PEG DAILY [facility] Last Admin: 10/08/18 09:29 Dose: 0.4 mg Vitamin A (Vitamin A & D Oint Ud Foilpak) 0.5 ea TOP BID [facility] Last Admin: 10/08/18 09:30 Dose: 0.5 ea - Labs Labs: 10/07/18 06:26 10/07/18 06:26 PT 12.9 SECONDS (9.7-12.2) H 10/02/18 06:10 INR 1.2 10/02/18 06:10 APTT 23 SECONDS (21-34) 10/02/18 06:10 - Constitutional Appears: Agitated - Head Exam Head Exam: NORMAL INSPECTION Additional comments: s/p trach clean/dry/intact - Eye Exam Eye Exam: EOMI - ENT Exam ENT Exam: Mucous Membranes Moist - Respiratory Exam Respiratory Exam: Decreased Breath Sounds, NORMAL BREATHING PATTERN. absent: Rales, Rhonchi, Wheezes - Cardiovascular Exam Cardiovascular Exam: REGULAR RHYTHM, +S1, +S2 - GI/Abdominal Exam GI & Abdominal Exam: Soft, Normal Bowel Sounds. absent: Distended, Firm, G uarding, Rigid, Tenderness, Rebound Additional comments: + peg placement clean/dry/intact - Extremities Exam Extremities Exam: absent: Pedal Edema, Tenderness Additional comments: prevalon boots/ muscle wasting b/l dressing over flexor surfaces over the knees - Neurological Exam Neurological Exam: Awake - Skin Skin Exam: Normal Color, Warm Assessment and Plan (1) Septic shock Status: Acute (2) Acute respiratory failure Status: Acute (3) Urinary tract infection Status: Acute (4) Acute renal failure Status: Acute (5) Aspiration pneumonia Status: Acute (6) Diabetes mellitus Status: Chronic (7) Ventricular arrhythmia Status: Acute (8) Hyperthyroidism Status: Acute (9) Anemia Status: Acute (10) Anoxic brain injury Status: Acute (11) Prophylactic measure Status: Acute Attending/Attestation - Attestation I have personally seen and examined this patient.: Yes I have fully participated in the care of the patient.: Yes I have reviewed all pertinent clinical information, including history, physical exam and plan: Yes Notes (Text): This is a 53-year-old female with a prolonged hospitalization for treatment for septic shock complicated by both pneumonia and urinary tract infections, anoxic encephalopathy likely secondary to 2 cardiac arrest during hospitalization, hyperthyroidism which has been controlled on methimazole, shock liver which is now recovered, history of apical thrombus which is currently being treated with aspirin and is not on anticoagulation secondary to worsening heavy vaginal bleed ing which required multiple blood transfusions during hospitalization, history of left lower extremity DVT which falling 1 month of anticoagulation has radiographically disappeared on repeat ultrasound and has now an IVC filter, as well as diabetes, vitamin D deficiency. Patient recently had a chest x-ray completed on October 01 which showed a redemonstration of a loculated pleural effusion over the right side of the chest as well as moderate pulmonary venous congestion. Patient underwent thoracentesis performed by interventional radiologist where in a 1 L fluid was removed. Patient was prophylactically placed on meropenem given prior history of Pseudomonas pneumonia noted during her hospitalization. Pleural culture shows no growth we have stopped meropenem Oct 04. Patient noted to have a repeat blood, urine culture and chest x-ray on the evening of the because she was more combative than her usual baseline note there is no labs collected on the and there is no fever noted on record. I did have a discussion with my partner who is covering the patient which wearing was discovered following about the pleural effusion noted on the . Blood cultures from the have been negative however the urine culture does show VRE she is noted to be sensitive to Zyvox however there is no fever and there is no white count. Patient is noted to be incontinent of the urine has been straight cath when she does retain. Patient is on [address] [place] since 10/05/17 evening with CBI to clean out urine. Patient is off antibiotic since 10/05/17. No fever, nor white count. Also note patient did underwent a lumbar puncture on September 15 HSV-2 IgM antibody, VDRL, and the West Nile are still pending. Physical therapy had signed off on Dane 23 because patient is not a candidate because she cannot follow directions. Patient would be an ideal candidate for LTAC however she does not have insurance, her is not from this country which limits her ability for s ervices. The other thing is patient still remains trach to vent as well. Also to note patient does have sequential compressive stocking since the follow- up venous Doppler which did indicate that the clot had cleared. Patient does have noted muscle wasting. Wound care re-evaluated the patient on 10/05/18 for skin break down over the flexor surfaces over the knee. New recommendations were placed. Patient has dressings over the sites. Patient's midodrine increased to 5mg PO TID to increase blood pressure on 10/06/18. Patient noted to have poor prognosis though she has survived many things during her hospitalization. Her who remains in high spirits hopes that she will recover and has been persistently at bedside every single day since being hospitalized in July. patient had mild hyperkalemia yesterday treated with duoneb treatment and kayexlate. Will f/u blood work tomorrow.
[2018-10-09] MEDS: (Novolog) Insulin Aspart, Recombinant 100 u/ml 10 ml vial SC SCH ×2 (00:10→12:27)
[2018-10-09] MEDS: Acetylcysteine 20% Inhal Soln (4ml) INH SCH ×6 (00:24→20:03)
[2018-10-09] MEDS: Albuterol-Ipratrop 3 mg / 0.5 (3 ml) UD INH SCH ×6 (00:25→20:02)
[2018-10-09 06:00] LABS: BASO # 0.1 K/uL (0.0-0.2); BASO % 0.5 % (0.0-2.0); EOS # 0.1 K/uL (0.0-0.7); EOS % 0.7 % (0.0-4.0); HEMOGLOBIN 8.3 g/dL (11.0-16.0); LYMPH # 1.4 K/uL (1.0-4.3); LYMPH % 10.1 % (20.0-40.0); MEAN CELL VOLUME 93.8 fL (81.0-99.0); MEAN CORPUSCULAR HEMOGLOBIN 30.4 pg (27.0-31.0); MEAN CORPUSCULAR HGB CONC 32.4 g/dL (33.0-37.0); MEAN PLATELET VOLUME 8.4 fL (7.2-11.7); MONO # 0.6 K/uL (0.0-0.8); MONO % 3.9 % (0.0-10.0); NEUT # 12.2 K/uL (1.8-7.0); NEUT % 84.8 % (50.0-75.0); RBC 2.73 Mil/uL (3.80-5.20); RED CELL DISTRIBUTION WIDTH 23.6 % (11.5-14.5); WHITE BLOOD COUNT 14.3 K/uL (4.8-10.8)
[2018-10-09 06:15] LABS: INR 1.3; PROTHROMBIN TIME 14.2 SECONDS (9.7-12.2)
[2018-10-09 06:18] LABS: ALT/SGPT 32 U/L (9-52); AST/SGOT 21 U/L (14-36); BLOOD UREA NITROGEN 34 mg/dL (7-17); GFR NON-AFRICAN AMERICAN > 60
--- NOTE | 2018-10-09 08:20 | CP.PCM.PN ---
Subjective - Date & Time of Evaluation Date of Evaluation: 10/09/18 Time of Evaluation: 08:10 - Subjective Subjective: Medical attending note No acute events overnight. Patient seen and examined. Patient resting comfortably. No family members present at bedside. Unable to review systems secondary to clinical condition. Objective - Vital Signs/Intake and Output Vital Signs (last 24 hours): Temp Pulse Resp BP Pulse Ox 98.9 F 81 16 110/88 98 10/09/18 04:00 10/09/18 04:00 10/09/18 04:00 10/09/18 04:00 10/09/18 04:00 Intake and Output: 10/09/18 10/09/18 06:59 18:59 Intake Total 8230 Output Total 8210 Balance 20 - Medications Medications: Current Medications Acetylcysteine (Acetylcysteine 20%) 4 ml INH RQ4 [facility] Last Admin: 10/09/18 06:40 Dose: 4 ml Albuterol/Ipratropium (Duoneb 3 Mg/0.5 Mg (3 Ml) Ud) 3 ml INH RQ4 [facility] Last Admin: 10/09/18 06:40 Dose: 3 ml Ascorbic Acid (Vitamin C 500 Mg Tab) 1,000 mg NG DAILY [facility] Last Admin: 10/08/18 09:29 Dose: 1,000 mg Aspirin (Aspirin Chewable) 81 mg GT DAILY [facility] Last Admin: 10/08/18 09:29 Dose: 81 mg Dextrose (Dextrose 50% Inj) 0 ml IVP .STAT PRN; Protocol PRN Reason: Hypoglycemia Protocol Dextrose (Glutose 15) 0 gm PO .ONCE PRN; Protocol PRN Reason: Hypoglycemia Protocol Enoxaparin Sodium (Lovenox) 40 mg SC DAILY [facility] Glucagon (Glucagen Diagnostic Kit) 0 mg IM .STAT PRN; Protocol PRN Reason: Hypoglycemia Protocol Insulin Aspart (Novolog) 0 unit SC Q12H [facility]; Protocol Last Admin: 10/09/18 00:10 Dose: 3 u Lactobacillus Acidophilus (Bacid Acidophilus) 1 cap GT BID [facility] Last Admin: 10/08/18 18:00 Dose: 1 cap Methimazole (Tapazole) 20 mg PO Q8 [facility] Last Admin: 10/08/18 21:19 Dose: 20 mg Midodrine (Proamatine) 5 mg PO TID [facility] Last Admin: 10/08/18 17:53 Dose: 5 mg Modafinil (Provigil) 50 mg PO DAILY [facility] Last Admin: 10/08/18 09:29 Dose: 50 mg Multivitamins (Hexavitamin) 1 tab PEG DAILY [facility] Last Admin: 10/08/18 09:29 Dose: 1 tab Pantoprazole Sodium (Protonix Susp) 40 mg GT Q12H [facility] Last Admin: 10/08/18 21:19 Dose: 40 mg Tamsulosin HCl (Flomax) 0.4 mg PEG DAILY [facility] Last Admin: 10/08/18 09:29 Dose: 0.4 mg Vitamin A (Vitamin A & D Oint Ud Foilpak) 0.5 ea TOP BID [facility] Last Admin: 10/08/18 18:00 Dose: 0.5 ea - Labs Labs: 10/09/18 05:52 10/09/18 05:52 PT 14.2 SECONDS (9.7-12.2) H 10/09/18 05:52 INR 1.3 10/09/18 05:52 APTT 23 SECONDS (21-34) 10/02/18 06:10 - Constitutional Appears: Non-toxic, No Acute Distress - Head Exam Head Exam: NORMAL INSPECTION Additional comments: on trach c/d/i - Eye Exam Eye Exam: EOMI - ENT Exam ENT Exam: Mucous Membranes Moist - Respiratory Exam Respiratory Exam: Decreased Breath Sounds, NORMAL BREATHING PATTERN. absent: Rales, Rhonchi - Cardiovascular Exam Cardiovascular Exam: REGULAR RHYTHM, +S1, +S2 - GI/Abdominal Exam GI & Abdominal Exam: Soft, Normal Bowel Sounds. absent: Distended, Firm, Guarding, Rigid, Tenderness, Rebound - Extremities Exam Extremities Exam: absent: Pedal Edema Additional comments: Prevalon boots Muscle wasting Dressing over skin breakdown noted over flexor surfaces of knees - Neurological Exam Neurological Exam: Awake - Skin Skin Exam: Normal Color, Warm Assessment and Plan (1) Septic shock Status: Acute (2) Acute respiratory failure Status: Acute (3) Urinary tract infection Status: Acute (4) Acute renal failure Status: Acute (5) Aspiration pneumonia Status: Acute (6) Diabetes mellitus Status: Chronic (7) Ventricular arrhythmia Status: Acute (8) Hyperthyroidism Status: Acute (9) Anemia Status: Acute (10) Anoxic brain injury Status: Acute (11) Prophylactic measure Status: Acute Attending/Attestation - Attestation I have personally seen and examined this patient.: Yes I have fully participated in the care of the patient.: Yes I have reviewed all pertinent clinical information, including history, physical exam and plan: Yes Notes (Text): This is a 53-year-old female with a prolonged hospitalization for treatment for septic shock complicated by both pneumonia and urinary tract infections, anoxic encephalopathy likely secondary to 2 cardiac arrest during hospitalization, hyperthyroidism which has been controlled on methimazole, shock liver which is now recovered, history of apical thrombus which is currently being treated with aspirin and is not on anticoagulation secondary to worsening heavy vaginal bleeding which required multiple blood transfusions during hospitalization, hi story of left lower extremity DVT which falling 1 month of anticoagulation has radiographically disappeared on repeat ultrasound and has now an IVC filter, as well as diabetes, vitamin D deficiency. Patient recently had a chest x-ray completed on October 01 which showed a redemonstration of a loculated pleural effusion over the right side of the chest as well as moderate pulmonary venous congestion. Patient underwent thoracentesis performed by interventional radiologist where in a 1 L fluid was removed. Patient was prophylactically placed on meropenem given prior history of Pseudomonas pneumonia noted during her hospitalization. Pleural culture shows no growth we have stopped meropenem Oct 04. Patient noted to have a repeat blood, urine culture and chest x-ray on the evening of the because she was more combative than her usual baseline note there is no labs collected on the and there is no fever noted on record. I did have a discussion with my partner who is covering the patient which wearing was discovered following about the pleural effusion noted on the . Blood cultures from the have been negative however the urine culture does show VRE she is noted to be sensitive to Zyvox however there is no fever and there is no white count. Patient is noted to be incontinent of the urine has been straight cath when she does retain. Patient is on [address] way [place] since 10/05/17 evening with CBI to clean out urine. Patient is off antibiotic since 10/05/17. Also note patient did underwent a lumbar puncture on September 15 HSV-2 IgM antibody, VDRL, and the West Nile are still pending. Physical therapy had signed off on September 24 because patient is not a candidate because she cannot follow directions. Patient would be an ideal candidate for LTAC however she does not have insurance, her is not from this country which limits her ability for s ervices. The other thing is patient still remains trach to vent as well. Also to note patient does have sequential compressive stocking since the follow- up venous Doppler which did indicate that the clot had cleared. Patient does have noted muscle wasting. Wound care re-evaluated the patient on 10/05/18 for skin break down over the flexor surfaces over the knee. New recommendations were placed. Patient has dressings over the sites. Patient's midodrine increased to 5mg PO TID to increase blood pressure on 10/06/18. Patient noted to have poor prognosis though she has survived many things during her hospitalization. Her who remains in high spirits hopes that she will recover and has been persistently at bedside every single day since being hospitalized in July. patient had mild hyperkalemia yesterday treated with duoneb treatment and kayexlate. Potassium normalized. Patient has a mild white count, afebrile. Will continue to monitor.
[2018-10-09] MEDS: Multiple Vitamins Tab PEG SCH (09:08)
[2018-10-09] MEDS: Pantoprazole 40 mg Susp UD GT SCH ×2 (09:08→22:45)
[2018-10-09] MEDS: Lactobacillus Acidophilus 500 MU Cap GT SCH ×2 (09:08→18:00)
[2018-10-09] MEDS: Modafinil 50 MG TAB PO SCH (09:08)
[2018-10-09] MEDS: Enoxaparin 40 mg Syringe SC SCH (09:08)
[2018-10-09] MEDS: Vitamins A & D Oint UD Foilpak TOP SCH ×2 (09:20→17:39)
--- NOTE | 2018-10-09 11:36 | RAD ---
HISTORY: re-eval b/l plu effusions COMPARISON: Chest x-ray performed 10/05/18 TECHNIQUE: Chest, one view. FINDINGS: Tracheostomy tube. Right-sided PICC extends to the axillary region. LUNGS: Hazy bilateral pulmonary opacities may reflect layering pleural effusions and moderate to severe pulmonary venous congestion. No definite pneumothorax. 15 mm rounded opacity at the left lung base. Please note that chest x-ray has limited sensitivity for the detection of pulmonary masses. CARDIOVASCULAR: Cardiomegaly. Atherosclerotic calcifications. OSSEOUS STRUCTURES: Degenerative changes. VISUALIZED UPPER ABDOMEN: Unremarkable. OTHER FINDINGS: None. IMPRESSION: Tracheostomy tube. Right-sided PICC extends to the axilla. Hazy bilateral pulmonary opacities may reflect layering pleural effusions and moderate to severe pulmonary venous congestion. 15 mm rounded opacity at the left lung base.
--- NOTE | 2018-10-09 11:56 | US ---
PROCEDURE: Date of procedure: 10/02/2018 Procedure: 1. Ultrasound-guided Right thoracentesis, CPT 94492 Medications: 6cc 1% Lidocaine HISTORY: Right pleural effusion, shortness of breath TECHNIQUE: Following informed consent ,the Patients' right chest was marked. Procedure time-out was called, and the patient was placed in the sitting position and limited ultrasound showed a large right effusion. The patient's right back was prepped and draped in the usual sterile fashion. After the skin was anesthetized with lidocaine, a drainage catheter was advanced under ultrasound guidance into the pleural space. Ultrasound-guided thoracentesis was performed. A total of 1000 cubic centimeters of straw-colored fluid removed without complication. A Xeroform dressing was applied. IMPRESSION: Ultrasound guided Right thoracentesis. There were no immediate complications.
[2018-10-10] MEDS: (Novolog) Insulin Aspart, Recombinant 100 u/ml 10 ml vial SC SCH ×2 (00:30→14:37)
[2018-10-10] MEDS: Acetylcysteine 20% Inhal Soln (4ml) INH SCH ×6 (00:33→20:44)
[2018-10-10] MEDS: Albuterol-Ipratrop 3 mg / 0.5 (3 ml) UD INH SCH ×5 (00:33→16:21)
[2018-10-10] MEDS: Vitamins A & D Oint UD Foilpak TOP SCH ×2 (09:18→18:15)
[2018-10-10] MEDS: Enoxaparin 40 mg Syringe SC SCH (09:18)
[2018-10-10] MEDS: Lactobacillus Acidophilus 500 MU Cap GT SCH ×2 (09:19→18:15)
[2018-10-10] MEDS: Pantoprazole 40 mg Susp UD GT SCH ×2 (09:19→21:17)
[2018-10-10] MEDS: Multiple Vitamins Tab PEG SCH (09:19)
[2018-10-10] MEDS: Modafinil 50 MG TAB PO SCH (09:19)
--- NOTE | 2018-10-10 10:57 | CP.PCM.PN ---
<Elijah Weinberg - Last Filed: 10/10/18 13:02> Subjective - Date & Time of Evaluation Date of Evaluation: 10/10/18 Time of Evaluation: 11:03 - Subjective Subjective: PGY-[address] Leahy Patient seen and examined at bedside. No acute events overnight. Clinical condition is unchanged. Still nonverbal, unable to follow commands. Plan is for thoracentesis later this afternoon. Unclear whether patient is possibly trying to mouth words today on exam. Objective - Vital Signs/Intake and Output Vital Signs (last 24 hours): Temp Pulse Resp BP Pulse Ox 98 F 93 H 18 115/69 98 10/10/18 04:00 10/10/18 04:00 10/10/18 04:00 10/10/18 04:00 10/10/18 04:00 Intake and Output: 10/10/18 10/10/18 06:59 18:59 Intake Total 360 Output Total 450 Balance -90 - Medications Medications: Current Medications Acetylcysteine (Acetylcysteine 20%) 4 ml INH RQ4 [facility] Last Admin: 10/10/18 08:38 Dose: 4 ml Albuterol/Ipratropium (Duoneb 3 Mg/0.5 Mg (3 Ml) Ud) 3 ml INH RQ4 [facility] Last Admin: 10/10/18 08:38 Dose: 3 ml Ascorbic Acid (Vitamin C 500 Mg Tab) 1,000 mg NG DAILY [facility] Last Admin: 10/10/18 09:18 Dose: 1,000 mg Aspirin (Aspirin Chewable) 81 mg GT DAILY [facility] Last Admin: 10/10/18 09:19 Dose: 81 mg Dextrose (Dextrose 50% Inj) 0 ml IVP .STAT PRN; Protocol PRN Reason: Hypoglycemia Protocol Dextrose (Glutose 15) 0 gm PO .ONCE PRN; Protocol PRN Reason: Hypoglycemia Protocol Glucagon (Glucagen Diagnostic Kit) 0 mg IM .STAT PRN; Protocol PRN Reason: Hypoglycemia Protocol Insulin Aspart (Novolog) 0 unit SC Q12H [facility]; Protocol Last Admin: 10/10/18 00:30 Dose: Not Given Lactobacillus Acidophilus (Bacid Acidophilus) 1 cap GT BID [facility] Last Admin: 10/10/18 09:19 Dose: 1 cap Methimazole (Tapazole) 20 mg PO Q8 [facility] Last Admin: 10/10/18 05:17 Dose: 20 mg Midodrine (Proamatine) 5 mg PO TID [facility] Last Admin: 10/10/18 09:19 Dose: 5 mg Modafinil (Provigil) 50 mg PO DAILY [facility] Last Admin: 10/10/18 09:19 Dose: 50 mg Multivitamins (Hexavitamin) 1 tab PEG DAILY [facility] Last Admin: 10/10/18 09:19 Dose: 1 tab Pantoprazole Sodium (Protonix Susp) 40 mg GT Q12H [facility] Last Admin: 10/10/18 09:19 Dose: 40 mg Tamsulosin HCl (Flomax) 0.4 mg PEG DAILY [facility] Last Admin: 10/10/18 09:19 Dose: 0.4 mg Vitamin A (Vitamin A & D Oint Ud Foilpak) 0.5 ea TOP BID [facility] Last Admin: 10/10/18 09:18 Dose: 0.5 ea - Labs Labs: 10/09/18 05:52 10/09/18 05:52 PT 14.2 SECONDS (9.7-12.2) H 10/09/18 05:52 INR 1.3 10/09/18 05:52 APTT 23 SECONDS (21-34) 10/02/18 06:10 - Constitutional Appears: Older Than Stated Age, Chronically Ill - Head Exam Head Exam: ATRAUMATIC, NORMOCEPHALIC - Eye Exam Eye Exam: EOMI - ENT Exam ENT Exam: Mucous Membranes Moist - Neck Exam Additional comments: trach in place - Respiratory Exam Respiratory Exam: Decreased Breath Sounds Additional comments: on vent - Cardiovascular Exam Cardiovascular Exam: REGULAR RHYTHM, +S1, +S2 - GI/Abdominal Exam GI & Abdominal Exam: Soft. absent: Tenderness - Extremities Exam Extremities Exam: absent: Joint Swelling, Pedal Edema - Neurological Exam Neurological Exam: Awake. absent: Alert, Oriented x3 - Psychiatric Exam Psychiatric exam: Flat Affect - Skin Skin Exam: Dry, Intact Assessment and Plan - Assessment and Plan (Free Text) Assessment: Current medical management focusing on these current problems: Loculated Pleural Effusion on CXR -Imaging: - Chest XR 10/01: Interval development of pleural effusions with loculated co mponent along the right lateral chest wall. Moderate pulmonary venous congestion. Underlying pulmonary edema especially in the right lung is also a consideration. Follow up after medical management is recommended to ensure complete resolution. - Chest XR 10/04: Potential pulmonary vascular congestion vs infiltrates with possible trate left pleural effusion. Improved from 10/02 - Chest XR 10/05: Showing increased pulmonary vascular congestion compared to 10/04 - Chest XR 10/09- showing signicant congestion - CXR 10/10 - s/p thoracentesis, congestion/fluid looks comparable to CXR on 10/09 - S/p thoracentesis with Dr. Chavis10/02 -Right pleural effusion, US guided right thoracentesis 1 liter of brittany colored fluid - Patient planned for thoracentesis later this afternoon 10/10 - Antibiotics discontinued at this time patient not showing signs of infection - Duonebs Q4H [facility] with mucomist - Possible repeat CPAP trial later this afternoon - F/u CBC today which was repeated as patient did have a white count yesterday VRE + Urine 10/06: new mcintyre placed and has CBI - Patient without fevers or white count at this time - We are not restarting antibiotics at this time - Dr. Brock is recommending three way mcintyre for continuous bladder irrigation Hypotension - Monitor albumin, administer prn doses - Midodrine 2.5 PO BID During this prolonged hospital stay, patient treated for the following medical problems. See prior notes for details. 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 Low TSH, and Free T4 Thyroid Storm -Anemia Likely Secondary to Chronic Diseases Dysfunctional uterine bleeding -Vitamin D deficiency -Thrombocytopenia-->resolved -13 mm Left Adrenal Nodule -Hypernatremia (resolved) -Deconditioning -Tardive Dyskinesa Prophylactic measure * Protonix 40mg GT BID * Lactobacillus 1 cap PO BID * MVI 1x/day * Vitamin C 1,000 NG 1x/day * s/p Trach and Peg * SCD on Right and contraindicated on Left due to DVT * Peg feedings * Pulmcar 40cc/hr * patient had frequent BMs on prior formula; no diarrhea; we have spoken with dietary to change it on 08/19/18 * PICC Line d/c due to coiling * Patient has midline access * Note: speak to patient in [place] to assess neurologic status-->she does follow sometimes * s/p bronchoscopy 08/23 * s/p IVC filter 08/23 * s/p LP 09/15 * s/p right chest tube insertion 09/06; removed 09/15 * patient is FULL CODE * Provigil 50mg PO daily started to promote wakefulness during the day. * Social work note (08/09/18): patient is undocumented, has not health insurance, dc planning will be at home with Disposition: Continue aggressive PT/OT. Will follow with Mr Isaacs regarding a contact phone number to reach him when not present at bedside. Case discussed with Dr. Leahy. Amina Gomez, PGY-1. <Saira Leahy V - Last Filed: 10/15/18 17:53> Objective - Vital Signs/Intake and Output Vital Signs (last 24 hours): Temp Pulse Resp BP Pulse Ox 99.1 F 83 16 92/45 L 100 10/15/18 16:00 10/15/18 16:02 10/15/18 16:02 10/15/18 16:02 10/15/18 16:02 Intake and Output: 10/15/18 10/15/18 06:59 18:59 Intake Total 480 480 Output Total 250 200 Balance 230 280 - Medications Medications: Current Medications Acetylcysteine (Acetylcysteine 20%) 4 ml INH RQ4 [facility] Last Admin: 10/15/18 01:54 Dose: Not Given Ascorbic Acid (Vitamin C 500 Mg Tab) 1,000 mg NG DAILY [facility] Last Admin: 10/15/18 10:13 Dose: 1,000 mg Aspirin (Aspirin Chewable) 81 mg GT DAILY [facility] Last Admin: 10/15/18 10:13 Dose: 81 mg Dextrose (Dextrose 50% Inj) 0 ml IVP .STAT PRN; Protocol PRN Reason: Hypoglycemia Protocol Dextrose (Glutose 15) 0 gm PO .ONCE PRN; Protocol PRN Reason: Hypoglycemia Protocol Glucagon (Glucagen Diagnostic Kit) 0 mg IM .STAT PRN; Protocol PRN Reason: Hypoglycemia Protocol Insulin Aspart (Novolog) 0 unit SC Q12H [facility]; Protocol Last Admin: 10/15/18 12:25 Dose: Not Given Lactobacillus Acidophilus (Bacid Acidophilus) 1 cap GT BID [facility] Last Admin: 10/15/18 17:33 Dose: 1 cap Methimazole (Tapazole) 20 mg PO Q8 [facility] Last Admin: 10/15/18 14:49 Dose: 20 mg Midodrine (Proamatine) 5 mg PO TID [facility] Last Admin: 10/15/18 17:33 Dose: 5 mg Modafinil (Provigil) 50 mg PO DAILY [facility] Last Admin: 10/15/18 10:13 Dose: 50 mg Multivitamins (Hexavitamin) 1 tab PEG DAILY [facility] Last Admin: 10/15/18 10:13 Dose: 1 tab Pantoprazole Sodium (Protonix Susp) 40 mg GT Q12H [facility] Last Admin: 10/15/18 10:13 Dose: 40 mg Tamsulosin HCl (Flomax) 0.4 mg PEG DAILY [facility] Last Admin: 10/15/18 10:13 Dose: 0.4 mg Vitamin A (Vitamin A & D Oint Ud Foilpak) 0.5 ea TOP BID [facility] Last Admin: 10/15/18 17:34 Dose: 0.5 ea - Labs Labs: 10/13/18 06:51 10/13/18 06:21 PT 13.5 SECONDS (9.7-12.2) H 10/12/18 11:55 INR 1.2 10/12/18 11:55 APTT 23 SECONDS (21-34) 10/02/18 06:10 Assessment and Plan (1) Septic shock Status: Acute (2) Acute respiratory failure Status: Acute (3) Urinary tract infection Status: Acute (4) Acute renal failure Status: Acute (5) Aspiration pneumonia Status: Acute (6) Diabetes mellitus Status: Chronic (7) Ventricular arrhythmia Status: Acute (8) Hyperthyroidism Status: Acute (9) Anemia Status: Acute (10) Anoxic brain injury Status: Acute (11) Prophylactic measure Status: Acute Attending/Attestation - Attestation I have personally seen and examined this patient.: Yes I have fully participated in the care of the patient.: Yes I have reviewed all pertinent clinical information, including history, physical exam and plan: Yes Notes (Text): This is late computer entry for 10/10/18. Patient seen, examined, and case discussed with day-time resident. This is a 53-year-old female with a prolonged hospitalization for treatment for septic shock complicated by both pneumonia and urinary tract infections, anoxic encephalopathy likely secondary to 2 cardiac arrest during hospitalization, hyperthyroidism which has been controlled on methimazole, shock liver which is now recovered, history of apical thrombus which is currently being treated with aspirin and is not on anticoagulation secondary to worsening heavy vaginal bleeding which required multiple blood transfusions during hospitalization, history of left lower extremity DVT which falling 1 month of anticoagulation has radiographically disappeared on repeat ultrasound and has now an IVC filter, as well as diabetes, vitamin D deficiency. Patient recently had a chest x-ray completed on October 01 which showed a redemonstration of a loculated pleural effusion over the right side of the chest as well as moderate pulmonary venous congestion. Patient underwent thoracentesis performed by interventional radiologist where in a 1 L fluid was removed. Patient was prophylactically placed on meropenem given prior history of Pseudomonas pneumonia noted during her hospitalization. Pleural culture shows no growth we have stopped meropenem on Oct 04. Patient noted to have a repeat blood, urine culture and chest x-ray on the evening of the Sep 30 because she was more combative than her usual baseline note there is no labs collected on the and there is no fever noted on record. I did have a discussion with my partner who is covering the patient which wearing was discovered following about the pleural effusion noted on the . Blood cultures from the have been negative however the urine culture does show VRE she is noted to be sensitive to Zyvox however there is no fever and there is no white count. Patient is noted to be incontinent of the urine has been straight cath when she does retain. Patient is on [address] way [place] since 10/05/17 evening with CBI to clean out urine. Patient is off antibiotic since 10/05/17. Also note patient did underwent a lumbar puncture on September 15 HSV-2 IgM antibody, VDRL, and the West Nile are still pending. Physical therapy had signed off on September 24 because patient is not a candidate because she cannot follow directions. Patient would be an ideal candidate for LTAC however she does not have insurance, her is not from this country which limits her ability for services. The other thing is patient still remains trach to vent as well. Also to note patient does have sequential compressive stocking since the follow- up venous Doppler which did indicate that the clot had cleared. Patient does have noted muscle wasting. Wound care re-evaluated the patient on 10/05/18 for skin break down over the flexor surfaces over the knee. New recommendations were placed. Patient has dressings over the sites. Patient's midodrine increased to 5mg PO TID to increase blood pressure on 10/06/18. Patient noted to have poor prognosis though she has survived many things during her hospitalization. Her who remains in high spirits hopes that she will recover and has been persistently at bedside every single day since being hospitalized in July. Patient has a mild white count, afebrile day prior. Will continue to monitor. Repeat chest xray shows congestion; may warrant repeat thoracentesis. will need to f/u pulmonary.
--- NOTE | 2018-10-10 13:46 | US ---
Limited bilateral oleg thorax ultrasound History: Pleural effusion. Comparison: X-ray dated 10/10/2018 Technique: Limited bilateral oleg thorax ultrasounds were performed. Findings: Bilateral pleural effusions were marked for thoracentesis to be performed by Dr. Lozada. Impression: Limited bilateral oleg thoraces ultrasound for demonstration of bilateral pleural effusions.
[2018-10-10 13:57] LABS: BASO % 0.5 % (0.0-2.0); EOS # 0.2 K/uL (0.0-0.7); EOS % 2.5 % (0.0-4.0); HEMOGLOBIN 7.6 g/dL (11.0-16.0); LYMPH # 1.3 K/uL (1.0-4.3); LYMPH % 15.2 % (20.0-40.0); MEAN CELL VOLUME 93.3 fL (81.0-99.0); MEAN CORPUSCULAR HGB CONC 33.2 g/dL (33.0-37.0); MEAN PLATELET VOLUME 7.8 fL (7.2-11.7); MONO # 0.5 K/uL (0.0-0.8); MONO % 5.3 % (0.0-10.0); NEUT # 6.6 K/uL (1.8-7.0); NEUT % 76.5 % (50.0-75.0); RBC 2.45 Mil/uL (3.80-5.20); WHITE BLOOD COUNT 8.6 K/uL (4.8-10.8)
[2018-10-10 14:07] LABS: BLOOD UREA NITROGEN 37 mg/dL (7-17); CALCIUM 7.8 mg/dl (8.6-10.4); GFR NON-AFRICAN AMERICAN > 60
--- NOTE | 2018-10-10 14:30 | RAD ---
Date of service: 10/10/2018 HISTORY: pleural effusion COMPARISON: 10/09/2018 chest x-ray FINDINGS: LUNGS: Lung volumes lower limits of normal. Tracheostomy tube in place as before. Diffuse hazy opacity over both lungs-combined diffuse layering pleural effusions with diffuse moderate to severe pulmonary venous congestion/pulmonary edema inferred. Appearance very similar. Bibasilar compressive atelectasis inferred. improved aeration-right lung base. And/or pleural effusion removal clearance are some considerations The rounded opacity projecting of the left lung base is probably faintly perceived on this exam much less dense in appearance on this exam-etiology/origin indeterminate PLEURA: Bilateral pleural effusions layering. No pneumothorax seen. CARDIOVASCULAR: There is absence of aortic atherosclerotic calcification on x-ray. Mild cardiomegaly suspect Severe pulmonary venous congestion/pulmonary edema suspect Right PICC line tip ends over axilla as before. OSSEOUS STRUCTURES: No significant abnormalities. VISUALIZED UPPER ABDOMEN: Normal. OTHER FINDINGS: None. IMPRESSION: Less dense consolidation right lung base-improved aeration/less passive compressive atelectasis inferred and/or partial clearing of some right pleural fluid. No pneumothorax seen. Extensive bilateral pleural effusions still persist. Less now on the right than before. Extensive pulmonary venous congestion/pulmonary edema- Right PICC line tip ends in the axilla-as before. Tracheostomy tube appears satisfactory in position. Extensive pulmonary venous congestion pulmonary edema
--- NOTE | 2018-10-10 17:33 | CP.PCM.PN ---
Subjective - Date & Time of Evaluation Date of Evaluation: 10/10/18 Time of Evaluation: 11:40 - Subjective Subjective: Pulmonology Note for Dr. Lozada Patient seen and examined this morning at bedside. Patient is non-verbal and unable to follow any commands. Clinical condition has remained unchanged. ROS unobtainable. Objective - Vital Signs/Intake and Output Vital Signs (last 24 hours): Temp Pulse Resp BP Pulse Ox 97.8 F 83 18 111/77 95 10/10/18 12:00 10/10/18 12:00 10/10/18 12:00 10/10/18 12:00 10/10/18 12:00 Intake and Output: 10/10/18 10/10/18 06:59 18:59 Intake Total 360 Output Total 450 Balance -90 - Medications Medications: Current Medications Acetylcysteine (Acetylcysteine 20%) 4 ml INH RQ4 [facility] Last Admin: 10/10/18 16:21 Dose: 4 ml Ascorbic Acid (Vitamin C 500 Mg Tab) 1,000 mg NG DAILY [facility] Last Admin: 10/10/18 09:18 Dose: 1,000 mg Aspirin (Aspirin Chewable) 81 mg GT DAILY [facility] Last Admin: 10/10/18 09:19 Dose: 81 mg Dextrose (Dextrose 50% Inj) 0 ml IVP .STAT PRN; Protocol PRN Reason: Hypoglycemia Protocol Dextrose (Glutose 15) 0 gm PO .ONCE PRN; Protocol PRN Reason: Hypoglycemia Protocol Glucagon (Glucagen Diagnostic Kit) 0 mg IM .STAT PRN; Protocol PRN Reason: Hypoglycemia Protocol Insulin Aspart (Novolog) 0 unit SC Q12H [facility]; Protocol Last Admin: 10/10/18 14:37 Dose: Not Given Lactobacillus Acidophilus (Bacid Acidophilus) 1 cap GT BID [facility] Last Admin: 10/10/18 09:19 Dose: 1 cap Methimazole (Tapazole) 20 mg PO Q8 [facility] Last Admin: 10/10/18 14:00 Dose: 20 mg Midodrine (Proamatine) 5 mg PO TID [facility] Last Admin: 10/10/18 14:00 Dose: 5 mg Modafinil (Provigil) 50 mg PO DAILY [facility] Last Admin: 10/10/18 09:19 Dose: 50 mg Multivitamins (Hexavitamin) 1 tab PEG DAILY [facility] Last Admin: 01/08/19 09:19 Dose: 1 tab Pantoprazole Sodium (Protonix Susp) 40 mg GT Q12H [facility] Last Admin: 10/10/18 09:19 Dose: 40 mg Tamsulosin HCl (Flomax) 0.4 mg PEG DAILY [facility] Last Admin: 10/10/18 09:19 Dose: 0.4 mg Vitamin A (Vitamin A & D Oint Ud Foilpak) 0.5 ea TOP BID [facility] Last Admin: 10/10/18 09:18 Dose: 0.5 ea - Labs Labs: 10/10/18 13:51 10/10/18 13:51 PT 14.2 SECONDS (9.7-12.2) H 10/09/18 05:52 INR 1.3 10/09/18 05:52 APTT 23 SECONDS (21-34) 10/02/18 06:10 - Constitutional Appears: Confused, Chronically Ill - Head Exam Head Exam: ATRAUMATIC, NORMOCEPHALIC - Eye Exam Eye Exam: Normal appearance - ENT Exam ENT Exam: Mucous Membranes Moist - Neck Exam Additional comments: trach in place - Respiratory Exam Respiratory Exam: Decreased Breath Sounds (b/l) - Cardiovascular Exam Cardiovascular Exam: REGULAR RHYTHM, +S1, +S2 - GI/Abdominal Exam GI & Abdominal Exam: Soft. absent: Distended, Firm, Guarding, Rigid, Tenderness - Neurological Exam Neurological Exam: Awake. absent: Oriented x3 - Skin Skin Exam: Dry, Warm Assessment and Plan (1) Pleural effusion Assessment & Plan: CXR 10/10: Less dense consolidation right lung base-improved aeration/less passive compressive atelectasis inferred and/or partial clearing of some right pleural fluid. No pneumothorax seen. Extensive bilateral pleural effusions still persist. Less now on the right than before. Patient as had multiple thoracentesis procedures. - last with Dr. Chavis on 10/02 - 1 L of brittany color fluid removed Recurrent transudative effusion Will plan for pigtail catheter placement tomorrow, 10/11/17. continue current management per primary team Status: Acute (2) Anoxic brain injury Status: Acute
[2018-10-11] MEDS: (Novolog) Insulin Aspart, Recombinant 100 u/ml 10 ml vial SC SCH ×2 (00:30→12:18)
[2018-10-11] MEDS: Acetylcysteine 20% Inhal Soln (4ml) INH SCH ×4 (00:33→21:03)
[2018-10-11 07:56] LABS: BASO # 0.1 K/uL (0.0-0.2); BASO % 0.7 % (0.0-2.0); EOS # 0.2 K/uL (0.0-0.7); EOS % 1.8 % (0.0-4.0); HEMOGLOBIN 7.9 g/dL (11.0-16.0); LYMPH # 1.8 K/uL (1.0-4.3); LYMPH % 15.4 % (20.0-40.0); MEAN CELL VOLUME 93.7 fL (81.0-99.0); MEAN CORPUSCULAR HEMOGLOBIN 30.1 pg (27.0-31.0); MEAN CORPUSCULAR HGB CONC 32.1 g/dL (33.0-37.0); MEAN PLATELET VOLUME 8.3 fL (7.2-11.7); MONO # 0.7 K/uL (0.0-0.8); MONO % 5.6 % (0.0-10.0); NEUT % 76.5 % (50.0-75.0); RBC 2.64 Mil/uL (3.80-5.20); RED CELL DISTRIBUTION WIDTH 23.2 % (11.5-14.5); WHITE BLOOD COUNT 11.8 K/uL (4.8-10.8)
[2018-10-11 08:08] LABS: ALB/GLOB RATIO 0.9 (1.0-2.1); ALBUMIN 2.9 g/dL (3.5-5.0); ALT/SGPT 28 U/L (9-52); AST/SGOT 19 U/L (14-36); BLOOD UREA NITROGEN 41 mg/dL (7-17); CALCIUM 8.1 mg/dl (8.6-10.4); GFR NON-AFRICAN AMERICAN 58
[2018-10-11] MEDS: Vitamins A & D Oint UD Foilpak TOP SCH ×2 (10:17→17:21)
[2018-10-11] MEDS: Multiple Vitamins Tab PEG SCH (10:18)
[2018-10-11] MEDS: Pantoprazole 40 mg Susp UD GT SCH ×2 (10:19→20:56)
[2018-10-11] MEDS: Modafinil 50 MG TAB PO SCH (10:19)
[2018-10-11] MEDS: Lactobacillus Acidophilus 500 MU Cap GT SCH ×2 (10:21→17:22)
--- NOTE | 2018-10-11 10:25 | CP.PCM.PN ---
<Elijah Weinberg - Last Filed: 10/11/18 10:39> Subjective - Date & Time of Evaluation Date of Evaluation: 10/11/18 Time of Evaluation: 10:33 - Subjective Subjective: PGY-[address] Garcia Patient seen and examined at bedside. No acute events overnight. Patient planned to have pigtail catheter placed today with Dr. Lozada. We will follow up regarding the results of the procedure. ROS unable to be obtained. Objective - Vital Signs/Intake and Output Vital Signs (last 24 hours): Temp Pulse Resp BP Pulse Ox 98 F 83 20 115/55 L 96 10/11/18 04:00 10/11/18 04:00 10/11/18 04:00 10/11/18 04:00 10/11/18 04:00 Intake and Output: 10/11/18 10/11/18 06:59 18:59 Intake Total 380 Output Total 550 Balance -170 - Medications Medications: Current Medications Acetylcysteine (Acetylcysteine 20%) 4 ml INH RQ4 [facility] Last Admin: 10/11/18 09:29 Dose: Not Given Ascorbic Acid (Vitamin C 500 Mg Tab) 1,000 mg NG DAILY [facility] Last Admin: 10/11/18 10:18 Dose: 1,000 mg Aspirin (Aspirin Chewable) 81 mg GT DAILY [facility] Last Admin: 10/11/18 10:19 Dose: 81 mg Dextrose (Dextrose 50% Inj) 0 ml IVP .STAT PRN; Protocol PRN Reason: Hypoglycemia Protocol Dextrose (Glutose 15) 0 gm PO .ONCE PRN; Protocol PRN Reason: Hypoglycemia Protocol Glucagon (Glucagen Diagnostic Kit) 0 mg IM .STAT PRN; Protocol PRN Reason: Hypoglycemia Protocol Insulin Aspart (Novolog) 0 unit SC Q12H [facility]; Protocol Last Admin: 10/11/18 00:30 Dose: Not Given Lactobacillus Acidophilus (Bacid Acidophilus) 1 cap GT BID [facility] Last Admin: 10/11/18 10:21 Dose: 1 cap Methimazole (Tapazole) 20 mg PO Q8 [facility] Last Admin: 10/11/18 05:12 Dose: 20 mg Midodrine (Proamatine) 5 mg PO TID [facility] Last Admin: 10/11/18 10:19 Dose: 5 mg Modafinil (Provigil) 50 mg PO DAILY [facility] Last Admin: 10/11/18 10:19 Dose: 50 mg Multivitamins (Hexavitamin) 1 tab PEG DAILY [facility] Last Admin: 10/11/18 10:18 Dose: 1 tab Pantoprazole Sodium (Protonix Susp) 40 mg GT Q12H [facility] Last Admin: 10/11/18 10:19 Dose: 40 mg Tamsulosin HCl (Flomax) 0.4 mg PEG DAILY [facility] Last Admin: 10/11/18 10:18 Dose: 0.4 mg Vitamin A (Vitamin A & D Oint Ud Foilpak) 0.5 ea TOP BID [facility] Last Admin: 10/11/18 10:17 Dose: 0.5 ea - Labs Labs: 10/11/18 07:44 10/11/18 07:44 PT 14.2 SECONDS (9.7-12.2) H 10/09/18 05:52 INR 1.3 10/09/18 05:52 APTT 23 SECONDS (21-34) 10/02/18 06:10 - Constitutional Appears: Non-toxic, No Acute Distress - Head Exam Head Exam: ATRAUMATIC, NORMAL INSPECTION - Eye Exam Eye Exam: EOMI, Normal appearance - ENT Exam ENT Exam: Mucous Membranes Moist - Neck Exam Additional comments: trach - Respiratory Exam Respiratory Exam: Clear to Ausculation Bilateral, NORMAL BREATHING PATTERN. absent: Rhonchi, Wheezes Additional comments: On vent - Cardiovascular Exam Cardiovascular Exam: REGULAR RHYTHM, +S1, +S2 - GI/Abdominal Exam GI & Abdominal Exam: Soft, Normal Bowel Sounds - Neurological Exam Neurological Exam: Awake. absent: Alert, Oriented x3 Additional comments: No change from her current neurological baseline - Psychiatric Exam Psychiatric exam: Flat Affect - Skin Skin Exam: Dry, Intact Assessment and Plan - Assessment and Plan (Free Text) Assessment: Current medical management focusing on these current problems: Loculated Pleural Effusion on CXR -Imaging: - Chest XR 10/01: Interval development of pleural effusions with loculated component along the right lateral chest wall. Moderate pulmonary venous congestion. Underlying pulmonary edema especially in the right lung is also a consideration. Follow up after medical management is recommended to ensure complete resolution. - Chest XR 12: Potential pulmonary vascular congestion vs infiltrates with possible trace left pleural effusion. Improved from 10/02 - Chest XR 10/05: Showing increased pulmonary vascular congestion compared to 10/04 - Chest XR 10/09- showing signicant congestion - CXR 10/10: Less dense consolidation right lung base-improved aeration/less passive compressive atelectasis inferred and/or partial clearing of some right pleural fluid. No pneumothorax seen. Extensive bilateral pleural effusions still persist. Less now on the right than before. - S/p thoracentesis with Dr. Chavis10/02 -Right pleural effusion, US guided right thoracentesis 1 liter of brittany colored fluid - Patient will have pleural pigtail catheter placed today with Dr. Lozada - Antibiotics discontinued at this time patient not showing signs of infection - Duonebs Q4H [facility] with mucomist - Possible repeat CPAP trial later this afternoon - CBC up again today 10/11 - 11.8 from 8.6. Still off Abx, but we will continue to monitor white count. VRE + Urine 10/06: new mcintyre placed and has CBI - Afebrile, mildly elevated WBCs today - We are not restarting antibiotics at this time Hypotension - Monitor albumin, administer prn doses - Midodrine 2.5 PO BID During this prolonged hospital stay, patient treated for the following medical problems. See prior notes for details. 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 Low TSH, and Free T4 Thyroid Storm -Anemia Likely Secondary to Chronic Diseases Dysfunctional uterine bleeding -Vitamin D deficiency -Thrombocytopenia-->resolved -13 mm Left Adrenal Nodule -Hypernatremia (resolved) -Deconditioning -Tardive Dyskinesa Prophylactic measure * Protonix 40mg GT BID * Lactobacillus 1 cap PO BID * MVI 1x/day * Vitamin C 1,000 NG 1x/day * s/p Trach and Peg * SCD on Right and contraindicated on Left due to DVT * Peg feedings * Pulmcar 40cc/hr * patient had frequent BMs on prior formula; no diarrhea; we have spoken with dietary to change it on 08/19/18 * PICC Line d/c due to coiling * Patient has midline access * Note: speak to patient in [place] to assess neurologic status-->she does follow sometimes * s/p bronchoscopy 08/23 * s/p IVC filter 08/23 * s/p LP 09/15 * s/p right chest tube insertion 09/06; removed 09/15 * patient is FULL CODE * Provigil 50mg PO daily started to promote wakefulness during the day. * Social work note (08/09/18): patient is undocumented, has not health insurance, dc planning will be at home with Disposition: Continue aggressive PT/OT. Will follow with Mr Isaacs regarding a contact phone number to reach him when not present at bedside. Case discussed with Dr. Leahy. Elijah Weinberg, PGY-1. <Pravin Garcia - Last Filed: 12/07/18 11:55> Objective - Vital Signs/Intake and Output Vital Signs (last 24 hours): Temp Pulse Resp BP Pulse Ox 98.7 F 95 H 20 96/60 L 100 12/07/18 08:00 12/07/18 08:00 12/07/18 08:00 12/07/18 08:00 12/07/18 08:00 Intake and Output: 12/07/18 12/07/18 06:59 18:59 Intake Total 920 Output Total 425 Balance 495 - Medications Medications: Current Medications Albuterol/Ipratropium (Duoneb 3 Mg/0.5 Mg (3 Ml) Ud) 3 ml INH RQ6 PRN PRN Reason: Shortness of Breath Last Admin: 12/06/18 13:20 Dose: 3 ml Aspirin (Aspirin Chewable) 81 mg GT DAILY [facility] Last Admin: 12/07/18 09:55 Dose: 81 mg Dextrose (Dextrose 50% Inj) 0 ml IVP .STAT PRN; Protocol PRN Reason: Hypoglycemia Protocol Dextrose (Glutose 15) 0 gm PO .ONCE PRN; Protocol PRN Reason: Hypoglycemia Protocol Emollient Ointment (Vaseline Oint) 5 gm TOP DAILY [facility] Last Admin: 12/07/18 09:56 Dose: 5 gm Glucagon (Glucagen Diagnostic Kit) 0 mg IM .STAT PRN; Protocol PRN Reason: Hypoglycemia Protocol Methimazole (Tapazole) 10 mg PO Q8 [facility] Last Admin: 12/07/18 05:41 Dose: 10 mg Midodrine (Proamatine) 10 mg PO TID [facility] Last Admin: 12/07/18 09:55 Dose: 10 mg Ondansetron HCl (Zofran Inj) 4 mg IVP DAILY@ONCE PRN PRN Reason: Nausea/Vomiting Last Admin: 11/29/18 17:05 Dose: 4 mg Pantoprazole Sodium (Protonix Susp) 40 mg GT Q12H [facility] Last Admin: 12/07/18 09:55 Dose: 40 mg Simethicone (Mylicon Chew Tab) 80 mg PO QID [facility] Last Admin: 12/07/18 09:55 Dose: 80 mg Sodium Bicarbonate (Sodium Bicarbonate Tab) 650 mg PO BID [facility] Last Admin: 12/07/18 09:55 Dose: 650 mg - Labs Labs: 11/28/18 11:26 11/28/18 11:26 PT 13.3 SECONDS (9.7-12.2) H 10/23/18 06:05 INR 1.2 10/23/18 06:05 APTT 23 SECONDS (21-34) 10/02/18 06:10 Attending/Attestation - Attestation I have personally seen and examined this patient.: Yes I have fully participated in the care of the patient.: Yes I have reviewed all pertinent clinical information, including history, physical exam and plan: Yes Notes (Text): current issues: Loculated Pleural Effusion on CXR VRE + Urine Hypotension 1)Septic Shock Pneumonia Urinary Tract Infection 2) Acute Respiratory Failure Pulmonary Edema Bilateral Pleural Effusion and Consolidations Likely Secondary to Aspiration Pneumonia Anoxic Encephalopathy 3) Anoxic Encephalopathy Ventricular Tachycardia NSTEMI Apical Thrombus LLE DVT 4) Urinary Tract Infection 5) Diabetes-->chronic 6) Acute on Chronic Renal Failure 7) Hyperthyroidism? Low TSH, and Free T4 Thyroid Storm 8) Anemia Likely Secondary to Chronic Diseases 9) Transminitis-->improving 10) Vitamin D deficiency 11) Thrombocytopenia-->resolved 12) 13 mm Left Adrenal Nodule 13) Hypernatremia-->resolved 14) LLE DVT 15) Deconditioning
[2018-10-12] MEDS: Acetylcysteine 20% Inhal Soln (4ml) INH SCH ×5 (00:54→20:02)
[2018-10-12] MEDS: (Novolog) Insulin Aspart, Recombinant 100 u/ml 10 ml vial SC SCH ×2 (04:00→11:50)
[2018-10-12] MEDS: Lactobacillus Acidophilus 500 MU Cap GT SCH ×2 (09:48→17:15)
[2018-10-12] MEDS: Vitamins A & D Oint UD Foilpak TOP SCH ×2 (09:48→17:15)
[2018-10-12] MEDS: Modafinil 50 MG TAB PO SCH (09:49)
[2018-10-12] MEDS: Pantoprazole 40 mg Susp UD GT SCH ×2 (09:49→20:59)
[2018-10-12] MEDS: Multiple Vitamins Tab PEG SCH (09:49)
[2018-10-12 12:10] LABS: INR 1.2; PROTHROMBIN TIME 13.5 SECONDS (9.7-12.2)
--- NOTE | 2018-10-12 16:30 | CP.PCM.PN ---
<Elijah Weinberg - Last Filed: 10/12/18 16:27> Subjective - Date & Time of Evaluation Date of Evaluation: 10/12/18 Time of Evaluation: 16:28 - Subjective Subjective: PGY-[address] Garcia Patient seen and examined at bedside. No acute events overnight per nursing. F/u regarding chest tube placement. Chest tube unable to be obtained. Objective - Vital Signs/Intake and Output Vital Signs (last 24 hours): Temp Pulse Resp BP Pulse Ox 98.0 F 76 14 117/81 97 10/12/18 12:00 10/12/18 12:00 10/12/18 12:00 10/12/18 12:00 10/12/18 12:00 Intake and Output: 10/12/18 10/12/18 06:59 18:59 Intake Total 300 Output Total 800 Balance -500 - Medications Medications: Current Medications Acetylcysteine (Acetylcysteine 20%) 4 ml INH RQ4 [facility] Last Admin: 10/12/18 11:02 Dose: Not Given Ascorbic Acid (Vitamin C 500 Mg Tab) 1,000 mg NG DAILY [facility] Last Admin: 10/12/18 09:48 Dose: 1,000 mg Aspirin (Aspirin Chewable) 81 mg GT DAILY [facility] Last Admin: 10/12/18 09:49 Dose: 81 mg Dextrose (Dextrose 50% Inj) 0 ml IVP .STAT PRN; Protocol PRN Reason: Hypoglycemia Protocol Dextrose (Glutose 15) 0 gm PO .ONCE PRN; Protocol PRN Reason: Hypoglycemia Protocol Glucagon (Glucagen Diagnostic Kit) 0 mg IM .STAT PRN; Protocol PRN Reason: Hypoglycemia Protocol Insulin Aspart (Novolog) 0 unit SC Q12H [facility]; Protocol Last Admin: 10/12/18 11:50 Dose: Not Given Lactobacillus Acidophilus (Bacid Acidophilus) 1 cap GT BID [facility] Last Admin: 10/12/18 09:48 Dose: 1 cap Methimazole (Tapazole) 20 mg PO Q8 [facility] Last Admin: 10/12/18 14:10 Dose: 20 mg Midodrine (Proamatine) 5 mg PO TID [facility] Last Admin: 10/12/18 14:11 Dose: 5 mg Modafinil (Provigil) 50 mg PO DAILY [facility] Last Admin: 10/12/18 09:49 Dose: 50 mg Multivitamins (Hexavitamin) 1 tab PEG DAILY [facility] Last Admin: 10/12/18 09:49 Dose: 1 tab Pantoprazole Sodium (Protonix Susp) 40 mg GT Q12H [facility] Last Admin: 10/12/18 09:49 Dose: 40 mg Tamsulosin HCl (Flomax) 0.4 mg PEG DAILY [facility] Last Admin: 10/12/18 09:49 Dose: 0.4 mg Vitamin A (Vitamin A & D Oint Ud Foilpak) 0.5 ea TOP BID [facility] Last Admin: 10/12/18 09:48 Dose: 0.5 ea - Labs Labs: 10/11/18 07:44 10/11/18 07:44 PT 13.5 SECONDS (9.7-12.2) H 10/12/18 11:55 INR 1.2 10/12/18 11:55 APTT 23 SECONDS (21-34) 10/02/18 06:10 - Constitutional Appears: Chronically Ill - Head Exam Head Exam: ATRAUMATIC, NORMOCEPHALIC - Eye Exam Eye Exam: EOMI - ENT Exam ENT Exam: Mucous Membranes Moist - Neck Exam Additional comments: trach - Respiratory Exam Respiratory Exam: Clear to Ausculation Bilateral, NORMAL BREATHING PATTERN Additional comments: on vent - Cardiovascular Exam Cardiovascular Exam: REGULAR RHYTHM, +S1, +S2 - GI/Abdominal Exam GI & Abdominal Exam: Soft, Normal Bowel Sounds - Neurological Exam Neurological Exam: Awake. absent: Alert, Oriented x3 - Psychiatric Exam Psychiatric exam: Flat Affect - Skin Skin Exam: Dry, Intact Assessment and Plan - Assessment and Plan (Free Text) Assessment: Current medical management focusing on these current problems: Loculated Pleural Effusion on CXR -Imaging: - Chest XR 10/01: Interval development of pleural effusions with loculated component along the right lateral chest wall. Moderate pulmonary venous congestion. Underlying pulmonary edema especially in the right lung is also a consideration. Follow up after medical management is recommended to ensure complete resolution. - Chest XR 12: Potential pulmonary vascular congestion vs infiltrates with possible trace left pleural effusion. Improved from 10/02 - Chest XR 13: Showing increased pulmonary vascular congestion compared to 10/04 - Chest XR 10/09- showing signicant congestion - CXR 10/10: Less dense consolidation right lung base-improved aeration/less passive compressive atelectasis inferred and/or partial clearing of some right pleural fluid. No pneumothorax seen. Extensive bilateral pleural effusions still persist. Less now on the right than before. - S/p thoracentesis with Dr. Chavis10/02 -Right pleural effusion, US guided right thoracentesis 1 liter of brittany colored fluid - Patient will have pleural pigtail catheter placed with Dr. Lozada. No chest tube in place on exam today. Will f/u - Antibiotics discontinued at this time patient not showing signs of infection - Duonebs Q4H [facility] with mucomist - Possible repeat CPAP trial later this afternoon - CBC up again 10/11 - 11.8 from 8.6. Still off Abx, but we will continue to monitor white count. VRE + Urine 10/06: new mcintyre placed and has CBI - Afebrile, mildly elevated WBCs today - We are not restarting antibiotics at this time Hypotension - Monitor albumin, administer prn doses - Midodrine 2.5 PO BID During this prolonged hospital stay, patient treated for the following medical problems. See prior notes for details. 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 Low TSH, and Free T4 Thyroid Storm -Anemia Likely Secondary to Chronic Diseases Dysfunctional uterine bleeding -Vitamin D deficiency -Thrombocytopenia-->resolved -13 mm Left Adrenal Nodule -Hypernatremia (resolved) -Deconditioning -Tardive Dyskinesa Prophylactic measure * Protonix 40mg GT BID * Lactobacillus 1 cap PO BID * MVI 1x/day * Vitamin C 1,000 NG 1x/day * s/p Trach and Peg * SCD on Right and contraindicated on Left due to DVT * Peg feedings * Pulmcar 40cc/hr * patient had frequent BMs on prior formula; no diarrhea; we have spoken with dietary to change it on 08/19/18 * PICC Line d/c due to coiling * Patient has midline access * Note: speak to patient in alexis to assess neurologic status-->she does follow sometimes * s/p bronchoscopy 08/23 * s/p IVC filter 08/23 * s/p LP 09/15 * s/p right chest tube insertion 09/06; removed 09/15 * patient is FULL CODE * Provigil 50mg PO daily started to promote wakefulness during the day. * Social work note (08/09/18): patient is undocumented, has not health insurance, dc planning will be at home with Disposition: Continue aggressive PT/OT. Will follow with Mr Isaacs regarding a contact phone number to reach him when not present at bedside. Case discussed with Dr. Joes Weinberg, PGY-1. <Pravin Garcia - Last Filed: 12/07/18 11:55> Objective - Vital Signs/Intake and Output Vital Signs (last 24 hours): Temp Pulse Resp BP Pulse Ox 98.7 F 95 H 20 96/60 L 100 12/07/18 08:00 12/07/18 08:00 12/07/18 08:00 12/07/18 08:00 12/07/18 08:00 Intake and Output: 12/07/18 12/07/18 06:59 18:59 Intake Total 920 Output Total 425 Balance 495 - Medications Medications: Current Medications Albuterol/Ipratropium (Duoneb 3 Mg/0.5 Mg (3 Ml) Ud) 3 ml INH RQ6 PRN PRN Reason: Shortness of Breath Last Admin: 12/06/18 13:20 Dose: 3 ml Aspirin (Aspirin Chewable) 81 mg GT DAILY [facility] Last Admin: 12/07/18 09:55 Dose: 81 mg Dextrose (Dextrose 50% Inj) 0 ml IVP .STAT PRN; Protocol PRN Reason: Hypoglycemia Protocol Dextrose (Glutose 15) 0 gm PO .ONCE PRN; Protocol PRN Reason: Hypoglycemia Protocol Emollient Ointment (Vaseline Oint) 5 gm TOP DAILY [facility] Last Admin: 12/07/18 09:56 Dose: 5 gm Glucagon (Glucagen Diagnostic Kit) 0 mg IM .STAT PRN; Protocol PRN Reason: Hypoglycemia Protocol Methimazole (Tapazole) 10 mg PO Q8 [facility] Last Admin: 12/07/18 05:41 Dose: 10 mg Midodrine (Proamatine) 10 mg PO TID [facility] Last Admin: 12/07/18 09:55 Dose: 10 mg Ondansetron HCl (Zofran Inj) 4 mg IVP DAILY@ONCE PRN PRN Reason: Nausea/Vomiting Last Admin: 11/29/18 17:05 Dose: 4 mg Pantoprazole Sodium (Protonix Susp) 40 mg GT Q12H [facility] Last Admin: 12/07/18 09:55 Dose: 40 mg Simethicone (Mylicon Chew Tab) 80 mg PO QID [facility] Last Admin: 12/07/18 09:55 Dose: 80 mg Sodium Bicarbonate (Sodium Bicarbonate Tab) 650 mg PO BID [facility] Last Admin: 12/07/18 09:55 Dose: 650 mg - Labs Labs: 11/28/18 11:26 11/28/18 11:26 PT 13.3 SECONDS (9.7-12.2) H 10/23/18 06:05 INR 1.2 10/23/18 06:05 APTT 23 SECONDS (21-34) 10/02/18 06:10 Attending/Attestation - Attestation I have personally seen and examined this patient.: Yes I have fully participated in the care of the patient.: Yes I have reviewed all pertinent clinical information, including history, physical exam and plan: Yes Notes (Text): current issues: Loculated Pleural Effusion on CXR VRE + Urine Hypotension 1)Septic Shock Pneumonia Urinary Tract Infection 2) Acute Respiratory Failure Pulmonary Edema Bilateral Pleural Effusion and Consolidations Likely Secondary to Aspiration Pneumonia Anoxic Encephalopathy 3) Anoxic Encephalopathy Ventricular Tachycardia NSTEMI Apical Thrombus LLE DVT 4) Urinary Tract Infection 5) Diabetes-->chronic 6) Acute on Chronic Renal Failure 7) Hyperthyroidism? Low TSH, and Free T4 Thyroid Storm 8) Anemia Likely Secondary to Chronic Diseases 9) Transminitis-->improving 10) Vitamin D deficiency 11) Thrombocytopenia-->resolved 12) 13 mm Left Adrenal Nodule 13) Hypernatremia-->resolved 14) LLE DVT 15) Deconditioning
[2018-10-13] MEDS: (Novolog) Insulin Aspart, Recombinant 100 u/ml 10 ml vial SC SCH ×2 (00:17→12:03)
[2018-10-13] MEDS: Acetylcysteine 20% Inhal Soln (4ml) INH SCH ×5 (00:38→19:26)
[2018-10-13 06:57] LABS: ALB/GLOB RATIO 0.9 (1.0-2.1); ALBUMIN 3.1 g/dL (3.5-5.0); ALT/SGPT 27 U/L (9-52); AST/SGOT 17 U/L (14-36); BLOOD UREA NITROGEN 22 mg/dL (7-17); CALCIUM 8.8 mg/dl (8.6-10.4); GFR NON-AFRICAN AMERICAN > 60
[2018-10-13 06:58] LABS: BASO # 0.1 K/uL (0.0-0.2); BASO % 0.9 % (0.0-2.0); EOS # 0.3 K/uL (0.0-0.7); EOS % 3.1 % (0.0-4.0); HEMOGLOBIN 9.7 g/dL (11.0-16.0); LYMPH # 1.9 K/uL (1.0-4.3); LYMPH % 18.2 % (20.0-40.0); MEAN CELL VOLUME 93.4 fL (81.0-99.0); MEAN CORPUSCULAR HEMOGLOBIN 30.7 pg (27.0-31.0); MEAN CORPUSCULAR HGB CONC 32.8 g/dL (33.0-37.0); MEAN PLATELET VOLUME 7.8 fL (7.2-11.7); MONO # 0.7 K/uL (0.0-0.8); MONO % 6.5 % (0.0-10.0); NEUT # 7.4 K/uL (1.8-7.0); NEUT % 71.3 % (50.0-75.0); NRBC % 0.1 % (0.0-2.0); RBC 3.18 Mil/uL (3.80-5.20); RED CELL DISTRIBUTION WIDTH 22.9 % (11.5-14.5); WHITE BLOOD COUNT 10.4 K/uL (4.8-10.8)
[2018-10-13] MEDS: Lactobacillus Acidophilus 500 MU Cap GT SCH ×3 (10:00→17:10)
[2018-10-13] MEDS: Modafinil 50 MG TAB PO SCH (11:58)
[2018-10-13] MEDS: Pantoprazole 40 mg Susp UD GT SCH ×2 (11:58→21:23)
[2018-10-13] MEDS: Multiple Vitamins Tab PEG SCH (11:58)
[2018-10-13] MEDS: Vitamins A & D Oint UD Foilpak TOP SCH ×2 (12:00→17:11)
--- NOTE | 2018-10-13 12:36 | CP.PCM.PN ---
<Elijah Weinberg - Last Filed: 10/13/18 12:33> Subjective - Date & Time of Evaluation Date of Evaluation: 10/13/18 Time of Evaluation: 12:41 - Subjective Subjective: PGY-[address] Garcia Patients seen and examined at bedside. No acute events overnight. Will f/u chest tube placement which nursing endorsed to me is now scheduled today. Will f/u repeat imaging s/p thoracentesis. ROS unable to be obtained. Objective - Vital Signs/Intake and Output Vital Signs (last 24 hours): Temp Pulse Resp BP Pulse Ox 98 F 102 H 20 132/63 99 10/13/18 04:00 10/13/18 04:00 10/13/18 04:00 10/13/18 04:00 10/13/18 04:00 Intake and Output: 10/13/18 10/13/18 06:59 18:59 Intake Total 300 3000 Output Total 400 2700 Balance -100 300 - Medications Medications: Current Medications Acetylcysteine (Acetylcysteine 20%) 4 ml INH RQ4 [facility] Last Admin: 10/13/18 07:45 Dose: Not Given Ascorbic Acid (Vitamin C 500 Mg Tab) 1,000 mg NG DAILY [facility] Last Admin: 10/13/18 11:58 Dose: 1,000 mg Aspirin (Aspirin Chewable) 81 mg GT DAILY [facility] Last Admin: 10/13/18 10:00 Dose: Not Given Dextrose (Dextrose 50% Inj) 0 ml IVP .STAT PRN; Protocol PRN Reason: Hypoglycemia Protocol Dextrose (Glutose 15) 0 gm PO .ONCE PRN; Protocol PRN Reason: Hypoglycemia Protocol Glucagon (Glucagen Diagnostic Kit) 0 mg IM .STAT PRN; Protocol PRN Reason: Hypoglycemia Protocol Insulin Aspart (Novolog) 0 unit SC Q12H [facility]; Protocol Last Admin: 10/13/18 12:03 Dose: Not Given Lactobacillus Acidophilus (Bacid Acidophilus) 1 cap GT BID [facility] Last Admin: 10/13/18 12:01 Dose: 1 cap Methimazole (Tapazole) 20 mg PO Q8 [facility] Last Admin: 10/13/18 06:00 Dose: Not Given Midodrine (Proamatine) 5 mg PO TID [facility] Last Admin: 10/13/18 11:58 Dose: 5 mg Modafinil (Provigil) 50 mg PO DAILY [facility] Last Admin: 10/13/18 11:58 Dose: 50 mg Multivitamins (Hexavitamin) 1 tab PEG DAILY [facility] Last Admin: 10/13/18 11:58 Dose: 1 tab Pantoprazole Sodium (Protonix Susp) 40 mg GT Q12H [facility] Last Admin: 10/13/18 11:58 Dose: 40 mg Tamsulosin HCl (Flomax) 0.4 mg PEG DAILY [facility] Last Admin: 10/13/18 11:59 Dose: 0.4 mg Vitamin A (Vitamin A & D Oint Ud Foilpak) 0.5 ea TOP BID [facility] Last Admin: 10/13/18 12:00 Dose: 0.5 ea - Labs Labs: 10/13/18 06:51 10/13/18 06:21 PT 13.5 SECONDS (9.7-12.2) H 10/12/18 11:55 INR 1.2 10/12/18 11:55 APTT 23 SECONDS (21-34) 10/02/18 06:10 - Head Exam Head Exam: ATRAUMATIC, NORMOCEPHALIC - Eye Exam Eye Exam: EOMI - ENT Exam ENT Exam: Mucous Membranes Moist - Respiratory Exam Respiratory Exam: Decreased Breath Sounds. absent: Wheezes, Stridor Additional comments: on vent - Cardiovascular Exam Cardiovascular Exam: REGULAR RHYTHM, +S1, +S2 - GI/Abdominal Exam GI & Abdominal Exam: Soft, Normal Bowel Sounds - Extremities Exam Extremities Exam: Normal Inspection. absent: Pedal Edema, Tenderness - Neurological Exam Neurological Exam: Alert, Awake, Oriented x3 - Psychiatric Exam Psychiatric exam: Flat Affect - Skin Skin Exam: Dry, Intact Assessment and Plan - Assessment and Plan (Free Text) Assessment: Current medical management focusing on these current problems: Loculated Pleural Effusion on CXR -Imaging: - Chest XR 10/01: Interval development of pleural effusions with loculated component along the right lateral chest wall. Moderate pulmonary venous congestion. Underlying pulmonary edema especially in the right lung is also a consideration. Follow up after medical management is recommended to ensure complete resolution. - Chest XR 12: Potential pulmonary vascular congestion vs infiltrates with possible trace left pleural effusion. Improved from 10/02 - Chest XR 1: Showing increased pulmonary vascular congestion compared to 10/04 - Chest XR 10/09- showing signicant congestion - CXR 10/10: Less dense consolidation right lung base-improved aeration/less passi ve compressive atelectasis inferred and/or partial clearing of some right pleural fluid. No pneumothorax seen. Extensive bilateral pleural effusions still persist. Less now on the right than before. - S/p thoracentesis with Dr. Chavis10/02 -Right pleural effusion, US guided right thoracentesis 1 liter of brittany colored fluid - Patient will have pleural pigtail catheter placed with Dr. Lozada. No chest tube in place on exam today. Will f/u - Antibiotics discontinued at this time patient not showing signs of infection - Duonebs Q4H [facility] with mucomist - Possible repeat CPAP trial - f/u - No leukocytosis. Still off Abx, but we will continue to monitor white count. VRE + Urine - Hernandes placed with CBI - Afebrile, mildly elevated WBCs today - We are not restarting antibiotics at this time Hypotension - Monitor albumin, administer prn doses - Midodrine 2.5 PO BID During this prolonged hospital stay, patient treated for the following medical problems. See prior notes for details. 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 Low TSH, and Free T4 Thyroid Storm -Anemia Likely Secondary to Chronic Diseases Dysfunctional uterine bleeding -Vitamin D deficiency -Thrombocytopenia-->resolved -13 mm Left Adrenal Nodule -Hypernatremia (resolved) -Deconditioning -Tardive Dyskinesa Prophylactic measure * Protonix 40mg GT BID * Lactobacillus 1 cap PO BID * MVI 1x/day * Vitamin C 1,000 NG 1x/day * s/p Trach and Peg * SCD on Right and contraindicated on Left due to DVT * Peg feedings * Pulmcar 40cc/hr * patient had frequent BMs on prior formula; no diarrhea; we have spoken with dietary to change it on 08/19/18 * PICC Line d/c due to coiling * Patient has midline access * Note: speak to patient in alexis to assess neurologic status-->she does follow sometimes * s/p bronchoscopy 08/23 * s/p IVC filter 08/23 * s/p LP 09/15 * s/p right chest tube insertion 09/06; removed 09/15 * patient is FULL CODE * Provigil 50mg PO daily started to promote wakefulness during the day. * Social work note (08/09/18): patient is undocumented, has not health insurance, dc planning will be at home with Disposition: Continue aggressive PT/OT. Will follow with Mr Isaacs regarding a contact phone number to reach him when not present at bedside. Case discussed with Dr. Jose Weinberg, PGY-1. <Pravin Garcia - Last Filed: 12/07/18 11:54> Objective - Vital Signs/Intake and Output Vital Signs (last 24 hours): Temp Pulse Resp BP Pulse Ox 98.7 F 95 H 20 96/60 L 100 12/07/18 08:00 12/07/18 08:00 12/07/18 08:00 12/07/18 08:00 12/07/18 08:00 Intake and Output: 12/07/18 12/07/18 06:59 18:59 Intake Total 920 Output Total 425 Balance 495 - Medications Medications: Current Medications Albuterol/Ipratropium (Duoneb 3 Mg/0.5 Mg (3 Ml) Ud) 3 ml INH RQ6 PRN PRN Reason: Shortness of Breath Last Admin: 12/06/18 13:20 Dose: 3 ml Aspirin (Aspirin Chewable) 81 mg GT DAILY [facility] Last Admin: 12/07/18 09:55 Dose: 81 mg Dextrose (Dextrose 50% Inj) 0 ml IVP .STAT PRN; Protocol PRN Reason: Hypoglycemia Protocol Dextrose (Glutose 15) 0 gm PO .ONCE PRN; Protocol PRN Reason: Hypoglycemia Protocol Emollient Ointment (Vaseline Oint) 5 gm TOP DAILY [facility] Last Admin: 12/07/18 09:56 Dose: 5 gm Glucagon (Glucagen Diagnostic Kit) 0 mg IM .STAT PRN; Protocol PRN Reason: Hypoglycemia Protocol Methimazole (Tapazole) 10 mg PO Q8 [facility] Last Admin: 12/07/18 05:41 Dose: 10 mg Midodrine (Proamatine) 10 mg PO TID [facility] Last Admin: 12/07/18 09:55 Dose: 10 mg Ondansetron HCl (Zofran Inj) 4 mg IVP DAILY@ONCE PRN PRN Reason: Nausea/Vomiting Last Admin: 11/29/18 17:05 Dose: 4 mg Pantoprazole Sodium (Protonix Susp) 40 mg GT Q12H [facility] Last Admin: 12/07/18 09:55 Dose: 40 mg Simethicone (Mylicon Chew Tab) 80 mg PO QID [facility] Last Admin: 12/07/18 09:55 Dose: 80 mg Sodium Bicarbonate (Sodium Bicarbonate Tab) 650 mg PO BID [facility] Last Admin: 12/07/18 09:55 Dose: 650 mg - Labs Labs: 11/28/18 11:26 11/28/18 11:26 PT 13.3 SECONDS (9.7-12.2) H 10/23/18 06:05 INR 1.2 10/23/18 06:05 APTT 23 SECONDS (21-34) 10/02/18 06:10 Attending/Attestation - Attestation I have personally seen and examined this patient.: Yes I have fully participated in the care of the patient.: Yes I have reviewed all pertinent clinical information, including history, physical exam and plan: Yes Notes (Text): current issues: Loculated Pleural Effusion on CXR VRE + Urine Hypotension 1)Septic Shock Pneumonia Urinary Tract Infection 2) Acute Respiratory Failure Pulmonary Edema Bilateral Pleural Effusion and Consolidations Likely Secondary to Aspiration Pneumonia Anoxic Encephalopathy 3) Anoxic Encephalopathy Ventricular Tachycardia NSTEMI Apical Thrombus LLE DVT 4) Urinary Tract Infection 5) Diabetes-->chronic 6) Acute on Chronic Renal Failure 7) Hyperthyroidism? Low TSH, and Free T4 Thyroid Storm 8) Anemia Likely Secondary to Chronic Diseases 9) Transminitis-->improving 10) Vitamin D deficiency 11) Thrombocytopenia-->resolved 12) 13 mm Left Adrenal Nodule 13) Hypernatremia-->resolved 14) LLE DVT 15) Deconditioning
--- NOTE | 2018-10-13 14:41 | PCM.SURG1 ---
Surgeon's Initial Post Op Note - Surgeon's Notes Surgeon: Hannah Plate Put In Worker: None Type of Anesthesia: Local Pre-Operative Diagnosis: B/L pleural effusion Operative Findings: Pleural effusions Post-Operative Diagnosis: Pleural effusions Operation Performed: Right thoracentesis Specimen/Specimens Removed: Approx 1000cc of clear fluid aspirated. Estimated Blood Loss: EBL {In ML}: 1 Date of Surgery/Procedure: 10/13/18 Time of Surgery/Procedure: 14:35
[2018-10-13 15:06] LABS: BODY FLUID TYPE PLEURAL/THORACENTESI
--- NOTE | 2018-10-13 15:32 | RAD ---
Date of service: 10/13/2018 HISTORY: s/p thoracentesis COMPARISON: 10/20/2018. FINDINGS: There is stable position of the tracheostomy tube. LUNGS: The right lung is well inflated. There is mild pulmonary venous congestion. There is redemonstration of diffuse haziness in the left lung. PLEURA: Worsening moderate left pleural effusion. Also loculated component along the left lateral chest wall. Interval significant improvement in right layering pleural effusion versus pulmonary edema. CARDIOVASCULAR: The heart is normal in size. No aortic atherosclerotic calcifications present. OSSEOUS STRUCTURES: Within normal limits for the patient's age. VISUALIZED UPPER ABDOMEN: Normal. OTHER FINDINGS: None. IMPRESSION: Interval significant improvement in right pleural effusion versus pulmonary edema. No pneumothorax. Worsening left pleural effusion versus pulmonary edema and redemonstration of loculated effusion along the left lateral chest wall. Stable position of the tracheostomy tube.
[2018-10-13 16:08] LABS: BF GROSS APPEARANCE SL CLOUDY (CLEAR)
[2018-10-13 16:09] LABS: BODY FLUID MONO/MACROPHAGE 2 % (0-0); BODY FLUID TOTAL COUNT 100 (0-0)
--- NOTE | 2018-10-13 18:07 | CP.PCM.PN ---
Subjective - Date & Time of Evaluation Date of Evaluation: 10/13/18 Time of Evaluation: 08:00 - Subjective Subjective: events noted [address] way mcintyre / Bladder irrigation completed Objective - Vital Signs/Intake and Output Vital Signs (last 24 hours): Temp Pulse Resp BP Pulse Ox 98.1 F 77 18 95/49 L 98 10/13/18 16:00 10/13/18 16:00 10/13/18 16:00 10/13/18 16:00 10/13/18 16:00 Intake and Output: 10/13/18 10/13/18 06:59 18:59 Intake Total 300 8250 Output Total 400 7450 Balance -100 800 - Medications Medications: Current Medications Acetylcysteine (Acetylcysteine 20%) 4 ml INH RQ4 [facility] Last Admin: 10/13/18 17:38 Dose: Not Given Ascorbic Acid (Vitamin C 500 Mg Tab) 1,000 mg NG DAILY [facility] Last Admin: 10/13/18 11:58 Dose: 1,000 mg Aspirin (Aspirin Chewable) 81 mg GT DAILY [facility] Last Admin: 10/13/18 10:00 Dose: Not Given Dextrose (Dextrose 50% Inj) 0 ml IVP .STAT PRN; Protocol PRN Reason: Hypoglycemia Protocol Dextrose (Glutose 15) 0 gm PO .ONCE PRN; Protocol PRN Reason: Hypoglycemia Protocol Glucagon (Glucagen Diagnostic Kit) 0 mg IM .STAT PRN; Protocol PRN Reason: Hypoglycemia Protocol Insulin Aspart (Novolog) 0 unit SC Q12H [facility]; Protocol Last Admin: 10/13/18 12:03 Dose: Not Given Lactobacillus Acidophilus (Bacid Acidophilus) 1 cap GT BID [facility] Last Admin: 10/13/18 17:10 Dose: 1 cap Methimazole (Tapazole) 20 mg PO Q8 [facility] Last Admin: 10/13/18 15:28 Dose: 20 mg Midodrine (Proamatine) 5 mg PO TID [facility] Last Admin: 10/13/18 17:11 Dose: 5 mg Modafinil (Provigil) 50 mg PO DAILY [facility] Last Admin: 10/13/18 11:58 Dose: 50 mg Multivitamins (Hexavitamin) 1 tab PEG DAILY [facility] Last Admin: 10/13/18 11:58 Dose: 1 tab Pantoprazole Sodium (Protonix Susp) 40 mg GT Q12H [facility] Last Admin: 10/13/18 11:58 Dose: 40 mg Tamsulosin HCl (Flomax) 0.4 mg PEG DAILY [facility] Last Admin: 10/13/18 11:59 Dose: 0.4 mg Vitamin A (Vitamin A & D Oint Ud Foilpak) 0.5 ea TOP BID [facility] Last Admin: 10/13/18 17:11 Dose: 0.5 ea - Labs Labs: 10/13/18 06:51 10/13/18 06:21 PT 13.5 SECONDS (9.7-12.2) H 10/12/18 11:55 INR 1.2 10/12/18 11:55 APTT 23 SECONDS (21-34) 10/02/18 06:10 - Constitutional Appears: Non-toxic, Chronically Ill - Head Exam Head Exam: NORMOCEPHALIC - Eye Exam Eye Exam: absent: Scleral icterus - ENT Exam ENT Exam: Mucous Membranes Dry - Neck Exam Neck Exam: absent: Lymphadenopathy - Respiratory Exam Respiratory Exam: Decreased Breath Sounds - Cardiovascular Exam Cardiovascular Exam: REGULAR RHYTHM - GI/Abdominal Exam GI & Abdominal Exam: Distended, Soft - Rectal Exam Rectal Exam: Deferred - Extremities Exam Extremities Exam: Pedal Edema - Back Exam Back Exam: absent: CVA tenderness (L), CVA tenderness (R) - Neurological Exam Neurological Exam: Altered Assessment and Plan (1) NEHA (acute kidney injury) Status: Acute (2) Acute renal failure Status: Acute (3) Acute respiratory failure Status: Acute (4) Aspiration pneumonia Status: Acute (5) Septic shock Status: Acute (6) Urinary tract infection Status: Acute (7) Diabetes mellitus Status: Chronic (8) Anoxic brain damage Status: Acute
[2018-10-14] MEDS: Acetylcysteine 20% Inhal Soln (4ml) INH SCH ×6 (00:37→19:47)
--- NOTE | 2018-10-14 08:40 | CP.PCM.PN ---
<Troy Alva - Last Filed: 10/14/18 08:29> Subjective - Date & Time of Evaluation Date of Evaluation: 10/14/18 Time of Evaluation: 08:29 - Subjective Subjective: PGY-[address] [place] N[place]itt Patient is seen and examined at bedside. Patient is s/p right thoracentesis, done 10/13/18. As per report, 1000cc of clear fluid were aspirated. As per nurse, no acute events reported. Patient is awake and moving her extremities in bed. ROS unattainable due to patient's status. Objective - Vital Signs/Intake and Output Vital Signs (last 24 hours): Temp Pulse Resp BP Pulse Ox 99 F 82 20 107/57 L 100 10/14/18 01:30 10/14/18 08:00 10/14/18 00:00 10/14/18 00:00 10/14/18 00:00 - Medications Medications: Current Medications Acetylcysteine (Acetylcysteine 20%) 4 ml INH RQ4 [facility] Last Admin: 10/14/18 04:51 Dose: Not Given Ascorbic Acid (Vitamin C 500 Mg Tab) 1,000 mg NG DAILY [facility] Last Admin: 10/13/18 11:58 Dose: 1,000 mg Aspirin (Aspirin Chewable) 81 mg GT DAILY [facility] Last Admin: 10/13/18 10:00 Dose: Not Given Dextrose (Dextrose 50% Inj) 0 ml IVP .STAT PRN; Protocol PRN Reason: Hypoglycemia Protocol Dextrose (Glutose 15) 0 gm PO .ONCE PRN; Protocol PRN Reason: Hypoglycemia Protocol Glucagon (Glucagen Diagnostic Kit) 0 mg IM .STAT PRN; Protocol PRN Reason: Hypoglycemia Protocol Insulin Aspart (Novolog) 0 unit SC Q12H [facility]; Protocol Last Admin: 10/14/18 00:00 Dose: Not Given Lactobacillus Acidophilus (Bacid Acidophilus) 1 cap GT BID [facility] Last Admin: 10/13/18 17:10 Dose: 1 cap Methimazole (Tapazole) 20 mg PO Q8 [facility] Last Admin: 10/14/18 05:47 Dose: 20 mg Midodrine (Proamatine) 5 mg PO TID [facility] Last Admin: 10/13/18 17:11 Dose: 5 mg Modafinil (Provigil) 50 mg PO DAILY [facility] Last Admin: 10/13/18 11:58 Dose: 50 mg Multivitamins (Hexavitamin) 1 tab PEG DAILY [facility] Last Admin: 10/13/18 11:58 Dose: 1 tab Pantoprazole Sodium (Protonix Susp) 40 mg GT Q12H [facility] Last Admin: 10/13/18 21:23 Dose: 40 mg Tamsulosin HCl (Flomax) 0.4 mg PEG DAILY [facility] Last Admin: 10/13/18 11:59 Dose: 0.4 mg Vitamin A (Vitamin A & D Oint Ud Foilpak) 0.5 ea TOP BID [facility] Last Admin: 10/13/18 17:11 Dose: 0.5 ea - Labs Labs: 10/13/18 06:51 10/13/18 06:21 PT 13.5 SECONDS (9.7-12.2) H 10/12/18 11:55 INR 1.2 10/12/18 11:55 APTT 23 SECONDS (21-34) 10/02/18 06:10 - Head Exam Head Exam: ATRAUMATIC, NORMOCEPHALIC - Eye Exam Eye Exam: EOMI - ENT Exam ENT Exam: Mucous Membranes Moist - Respiratory Exam Respiratory Exam: Decreased Breath Sounds, Rhonchi. absent: Rales, Wheezes - Cardiovascular Exam Cardiovascular Exam: REGULAR RHYTHM, +S1, +S2 - GI/Abdominal Exam GI & Abdominal Exam: Soft, Normal Bowel Sounds - Extremities Exam Extremities Exam: Normal Inspection. absent: Pedal Edema, Tenderness - Neurological Exam Neurological Exam: Alert, Awake - Skin Skin Exam: Dry, Intact Assessment and Plan - Assessment and Plan (Free Text) Plan: Loculated Pleural Effusion on CXR -Imaging: - Chest XR 10/01: Interval development of pleural effusions with loculated component along the right lateral chest wall. Moderate pulmonary venous congestion. Underlying pulmonary edema especially in the right lung is also a consideration. Follow up after medical management is recommended to ensure complete resolution. - Chest XR 12: Potential pulmonary vascular congestion vs infiltrates with possible trace left pleural effusion. Improved from 10/02 - Chest XR 10/05: Showing increased pulmonary vascular congestion compared to 10/04 - Chest XR 10/09- showing signicant congestion - CXR 10/10: Less dense consolidation right lung base-improved aeration/less passive compressive atelectasis inferred and/or partial clearing of some right pleural fluid. No pneumothorax seen. Extensive bilateral pleural effusions still persist. Less now on the right than before. - S/p thoracentesis with Dr. Chavis 10/02 -Right pleural effusion, US guided right thoracentesis 1 liter of brittany colored fluid - Patient will have pleural pigtail catheter placed with Dr. Lozada. No chest tube in place on exam today. Will f/u - Antibiotics discontinued at this time patient not showing signs of infection - Duonebs Q4H [facility] with mucomist - CPAP trial - f/u - No leukocytosis. Still off Abx, but we will continue to monitor white count. - 10/13/17 - Rt thoracentesis with 1000cc of clear fluid were aspirated. status post thoracentesis CXray shows interval significant improvement in right pleural effusion versus pulmonary edema. No pneumothorax. Worsening left pleural effusion versus pulmonary edema and redemonstration of loculated effusion along the left lateral chest wall. position of tracheostomy tube stable. VRE + Urine - Hernandes placed with CBI - 101 F overnight - Tylenol ONCE - afebrile this morning - Blood Cx stat - f/u Hypotension - Monitor albumin, administer prn doses - Midodrine 2.5 PO BID During this prolonged hospital stay, patient treated for the following medical problems. See prior notes for details. 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 Low TSH, and Free T4 Thyroid Storm -Anemia Likely Secondary to Chronic Diseases Dysfunctional uterine bleeding -Vitamin D deficiency -Thrombocytopenia-->resolved -13 mm Left Adrenal Nodule -Hypernatremia (resolved) -Deconditioning -Tardive Dyskinesa Prophylactic measure * Protonix 40mg GT BID * Lactobacillus 1 cap PO BID * MVI 1x/day * Vitamin C 1,000 NG 1x/day * s/p Trach and Peg * SCD on Right and contraindicated on Left due to DVT * Peg feedings * Pulmcar 40cc/hr * patient had frequent BMs on prior formula; no diarrhea; we have spoken with dietary to change it on 08/19/18 * PICC Line d/c due to coiling * Patient has midline access * Note: speak to patient in [place] to assess neurologic status-->she does follow sometimes * s/p bronchoscopy 08/23 * s/p IVC filter 08/23 * s/p LP 09/15 * s/p right chest tube insertion 09/06; removed 09/15 * patient is FULL CODE * Provigil 50mg PO daily started to promote wakefulness during the day. * Social work note (08/09/18): patient is undocumented, has not health insurance, dc planning will be at home with Disposition: Continue aggressive PT/OT. Will follow with Mr Isaacs regarding a contact phone number to reach him when not present at bedside. <[place] N[place]bitt - Last Filed: 10/21/18 15:46> Objective - Vital Signs/Intake and Output Vital Signs (last 24 hours): Temp Pulse Resp BP Pulse Ox 97.7 F 76 21 87/57 L 100 10/21/18 15:04 10/21/18 15:04 10/21/18 15:04 10/21/18 15:04 10/21/18 12:00 Intake and Output: 10/21/18 10/21/18 06:59 18:59 Intake Total 650 10 Output Total 250 Balance 400 10 - Medications Medications: Current Medications Acetylcysteine (Acetylcysteine 20%) 4 ml INH RQ4 [facility] Last Admin: 10/21/18 13:34 Dose: Not Given Ascorbic Acid (Vitamin C 500 Mg Tab) 1,000 mg NG DAILY [facility] Last Admin: 10/21/18 10:19 Dose: 1,000 mg Aspirin (Aspirin Chewable) 81 mg GT DAILY [facility] Last Admin: 10/21/18 10:19 Dose: 81 mg Dextrose (Dextrose 50% Inj) 0 ml IVP .STAT PRN; Protocol PRN Reason: Hypoglycemia Protocol Dextrose (Glutose 15) 0 gm PO .ONCE PRN; Protocol PRN Reason: Hypoglycemia Protocol Furosemide (Lasix) 20 mg IVP ONCE PRN PRN Reason: Cough and congestion Glucagon (Glucagen Diagnostic Kit) 0 mg IM .STAT PRN; Protocol PRN Reason: Hypoglycemia Protocol Insulin Aspart (Novolog) 0 unit SC Q12H [facility]; Protocol Last Admin: 10/21/18 12:30 Dose: 2 u Lactobacillus Acidophilus (Bacid Acidophilus) 1 cap GT BID [facility] Last Admin: 10/21/18 10:19 Dose: 1 cap Methimazole (Tapazole) 20 mg PO Q8 [facility] Last Admin: 10/21/18 13:34 Dose: 20 mg Midodrine (Proamatine) 10 mg PO TID [facility] Last Admin: 10/21/18 13:34 Dose: 10 mg Modafinil (Provigil) 50 mg PO DAILY [facility] Last Admin: 10/21/18 10:19 Dose: 50 mg Multivitamins (Hexavitamin) 1 tab PEG DAILY [facility] Last Admin: 10/21/18 10:19 Dose: 1 tab Pantoprazole Sodium (Protonix Susp) 40 mg GT Q12H [facility] Last Admin: 10/21/18 10:27 Dose: 40 mg Tamsulosin HCl (Flomax) 0.4 mg PEG DAILY [facility] Last Admin: 10/21/18 10:19 Dose: 0.4 mg Vitamin A (Vitamin A & D Oint Ud Foilpak) 0.5 ea TOP BID [facility] Last Admin: 10/21/18 10:24 Dose: 0.5 ea - Labs Labs: 10/20/18 06:24 10/20/18 06:21 PT 13.2 SECONDS (9.7-12.2) H 10/18/18 05:47 INR 1.2 10/18/18 05:47 APTT 23 SECONDS (21-34) 10/02/18 06:10 Attending/Attestation - Attestation I have personally seen and examined this patient.: Yes I have fully participated in the care of the patient.: Yes I have reviewed all pertinent clinical information, including history, physical exam and plan: Yes Notes (Text): 10/21/18 15:46 This is a late entry. Care of this patient was gone over with resident Dr. Alva. [place] Nesbitt D.O.
[2018-10-14] MEDS: Multiple Vitamins Tab PEG SCH (09:20)
[2018-10-14] MEDS: Pantoprazole 40 mg Susp UD GT SCH ×2 (09:20→21:08)
[2018-10-14] MEDS: Vitamins A & D Oint UD Foilpak TOP SCH ×2 (09:26→18:17)
[2018-10-14] MEDS: Lactobacillus Acidophilus 500 MU Cap GT SCH ×2 (10:48→18:17)
[2018-10-14] MEDS: Modafinil 50 MG TAB PO SCH (10:48)
[2018-10-14] MEDS: (Novolog) Insulin Aspart, Recombinant 100 u/ml 10 ml vial SC SCH ×2 (12:01)
[2018-10-15] MEDS: Acetylcysteine 20% Inhal Soln (4ml) INH SCH ×2 (01:54→08:00)
[2018-10-15] MEDS: Lactobacillus Acidophilus 500 MU Cap GT SCH ×2 (10:13→17:33)
[2018-10-15] MEDS: Modafinil 50 MG TAB PO SCH (10:13)
[2018-10-15] MEDS: Pantoprazole 40 mg Susp UD GT SCH ×2 (10:13→22:00)
[2018-10-15] MEDS: Multiple Vitamins Tab PEG SCH (10:13)
[2018-10-15] MEDS: Vitamins A & D Oint UD Foilpak TOP SCH ×2 (10:18→17:34)
[2018-10-15] MEDS: (Novolog) Insulin Aspart, Recombinant 100 u/ml 10 ml vial SC SCH ×2 (12:25)
--- NOTE | 2018-10-15 15:04 | CP.PCM.PN ---
Subjective - Date & Time of Evaluation Date of Evaluation: 10/15/18 Time of Evaluation: 08:00 - Subjective Subjective: Patient is s/p right thoracentesis, done 10/13/18. As per report, 1000cc of clear fluid were aspirated. no fever no new + cultures Objective - Vital Signs/Intake and Output Vital Signs (last 24 hours): Temp Pulse Resp BP Pulse Ox 97.9 F 84 14 106/56 L 100 10/15/18 08:00 10/15/18 10:00 10/15/18 10:00 10/15/18 04:23 10/15/18 10:00 Intake and Output: 10/15/18 10/15/18 06:59 18:59 Intake Total 480 Output Total 250 Balance 230 - Medications Medications: Current Medications Acetylcysteine (Acetylcysteine 20%) 4 ml INH RQ4 [facility] Last Admin: 10/15/18 01:54 Dose: Not Given Ascorbic Acid (Vitamin C 500 Mg Tab) 1,000 mg NG DAILY [facility] Last Admin: 10/15/18 10:13 Dose: 1,000 mg Aspirin (Aspirin Chewable) 81 mg GT DAILY [facility] Last Admin: 10/15/18 10:13 Dose: 81 mg Dextrose (Dextrose 50% Inj) 0 ml IVP .STAT PRN; Protocol PRN Reason: Hypoglycemia Protocol Dextrose (Glutose 15) 0 gm PO .ONCE PRN; Protocol PRN Reason: Hypoglycemia Protocol Glucagon (Glucagen Diagnostic Kit) 0 mg IM .STAT PRN; Protocol PRN Reason: Hypoglycemia Protocol Insulin Aspart (Novolog) 0 unit SC Q12H [facility]; Protocol Last Admin: 10/15/18 12:25 Dose: Not Given Lactobacillus Acidophilus (Bacid Acidophilus) 1 cap GT BID [facility] Last Admin: 10/15/18 10:13 Dose: 1 cap Methimazole (Tapazole) 20 mg PO Q8 [facility] Last Admin: 10/15/18 14:49 Dose: 20 mg Midodrine (Proamatine) 5 mg PO TID [facility] Last Admin: 10/15/18 14:49 Dose: 5 mg Modafinil (Provigil) 50 mg PO DAILY [facility] Last Admin: 10/15/18 10:13 Dose: 50 mg Multivitamins (Hexavitamin) 1 tab PEG DAILY [facility] Last Admin: 10/15/18 10:13 Dose: 1 tab Pantoprazole Sodium (Protonix Susp) 40 mg GT Q12H [facility] Last Admin: 10/15/18 10:13 Dose: 40 mg Tamsulosin HCl (Flomax) 0.4 mg PEG DAILY [facility] Last Admin: 10/15/18 10:13 Dose: 0.4 mg Vitamin A (Vitamin A & D Oint Ud Foilpak) 0.5 ea TOP BID [facility] Last Admin: 10/15/18 10:18 Dose: 0.5 ea - Labs Labs: 10/13/18 06:51 10/13/18 06:21 PT 13.5 SECONDS (9.7-12.2) H 10/12/18 11:55 INR 1.2 10/12/18 11:55 APTT 23 SECONDS (21-34) 10/02/18 06:10 - Constitutional Appears: Cachectic, Chronically Ill - Head Exam Head Exam: NORMOCEPHALIC - Eye Exam Eye Exam: absent: Scleral icterus - ENT Exam ENT Exam: Mucous Membranes Dry - Neck Exam Neck Exam: absent: Lymphadenopathy - Respiratory Exam Respiratory Exam: Decreased Breath Sounds - Cardiovascular Exam Cardiovascular Exam: REGULAR RHYTHM - GI/Abdominal Exam GI & Abdominal Exam: Distended - Rectal Exam Rectal Exam: Deferred - Exam Exam: NORMAL INSPECTION - Extremities Exam Extremities Exam: Pedal Edema - Back Exam Back Exam: absent: CVA tenderness (L), CVA tenderness (R) - Neurological Exam Neurological Exam: Altered Assessment and Plan (1) NEHA (acute kidney injury) Status: Acute (2) Acute renal failure Status: Acute (3) Acute respiratory failure Status: Acute (4) Aspiration pneumonia Status: Acute (5) Septic shock Status: Acute (6) Urinary tract infection Status: Acute (7) Diabetes mellitus Status: Chronic (8) Anoxic brain damage Status: Acute
--- NOTE | 2018-10-15 19:54 | CP.PCM.PN ---
<Sade Carrillo - Last Filed: 10/15/18 20:12> Subjective - Date & Time of Evaluation Date of Evaluation: 10/15/18 Time of Evaluation: 19:53 - Subjective Subjective: Medicine Progress Note - Dr Maria Teresa Nesbitt's service Patient seen and examined at bedside. Per nursing no acute events overnight. Patient is non-verbal and does not follow commands. Patient with secretions from trach. is at the bedside. No acute complaints. Objective - Vital Signs/Intake and Output Vital Signs (last 24 hours): Temp Pulse Resp BP Pulse Ox 99.1 F 83 16 92/45 L 100 10/15/18 16:00 10/15/18 16:02 10/15/18 16:02 10/15/18 16:02 10/15/18 16:02 Intake and Output: 10/15/18 10/16/18 18:59 06:59 Intake Total 480 Output Total 200 Balance 280 - Medications Medications: Current Medications Acetylcysteine (Acetylcysteine 20%) 4 ml INH RQ4 [facility] Last Admin: 10/15/18 01:54 Dose: Not Given Ascorbic Acid (Vitamin C 500 Mg Tab) 1,000 mg NG DAILY [facility] Last Admin: 10/15/18 10:13 Dose: 1,000 mg Aspirin (Aspirin Chewable) 81 mg GT DAILY [facility] Last Admin: 10/15/18 10:13 Dose: 81 mg Dextrose (Dextrose 50% Inj) 0 ml IVP .STAT PRN; Protocol PRN Reason: Hypoglycemia Protocol Dextrose (Glutose 15) 0 gm PO .ONCE PRN; Protocol PRN Reason: Hypoglycemia Protocol Glucagon (Glucagen Diagnostic Kit) 0 mg IM .STAT PRN; Protocol PRN Reason: Hypoglycemia Protocol Insulin Aspart (Novolog) 0 unit SC Q12H [facility]; Protocol Last Admin: 10/15/18 12:25 Dose: Not Given Lactobacillus Acidophilus (Bacid Acidophilus) 1 cap GT BID [facility] Last Admin: 10/15/18 17:33 Dose: 1 cap Methimazole (Tapazole) 20 mg PO Q8 [facility] Last Admin: 10/15/18 14:49 Dose: 20 mg Midodrine (Proamatine) 5 mg PO TID [facility] Last Admin: 10/15/18 17:33 Dose: 5 mg Modafinil (Provigil) 50 mg PO DAILY [facility] Last Admin: 10/15/18 10:13 Dose: 50 mg Multivitamins (Hexavitamin) 1 tab PEG DAILY [facility] Last Admin: 10/15/18 10:13 Dose: 1 tab Pantoprazole Sodium (Protonix Susp) 40 mg GT Q12H [facility] Last Admin: 10/15/18 10:13 Dose: 40 mg Tamsulosin HCl (Flomax) 0.4 mg PEG DAILY [facility] Last Admin: 10/15/18 10:13 Dose: 0.4 mg Vitamin A (Vitamin A & D Oint Ud Foilpak) 0.5 ea TOP BID [facility] Last Admin: 10/15/18 17:34 Dose: 0.5 ea - Labs Labs: 10/13/18 06:51 10/13/18 06:21 PT 13.5 SECONDS (9.7-12.2) H 10/12/18 11:55 INR 1.2 10/12/18 11:55 APTT 23 SECONDS (21-34) 10/02/18 06:10 - Additional Findings Additional findings: - Head Exam Head Exam: ATRAUMATIC, NORMOCEPHALIC - Eye Exam Eye Exam: EOMI - ENT Exam ENT Exam: Mucous Membranes Moist, +trach with secretions - Respiratory Exam Respiratory Exam: Decreased Breath Sounds, Rhonchi. absent: Rales, Wheezes - Cardiovascular Exam Cardiovascular Exam: REGULAR RHYTHM, +S1, +S2 - GI/Abdominal Exam GI & Abdominal Exam: Soft, Normal Bowel Sounds, distendend, non-tender - Exam GI Exam: Hernandes in place draining yellow urine - Extremities Exam Extremities Exam: Normal Inspection. absent: Pedal Edema, Tenderness - Neurological Exam Neurological Exam: Alert, Awake, Non-verbal, does no follow commands - Skin Skin Exam: Dry, Intact Assessment and Plan - Assessment and Plan (Free Text) Assessment: Recurrent Pleural Effusions -Stable, Afebrile -Patient is s/p right thoracentesis, done 10/13/18. As per report, 1000cc of clear fluid were aspirated -CXR on 10/13/18 showed Interval significant improvement in right pleural effusion versus pulmonary edema. No pneumothorax. Worsening left pleural effusi on versus pulmonary edema and redemonstration of loculated effusion along the left lateral chest wall. Stable position of the tracheostomy tube (see full report) -As patient keeps developing pleural effusions, we will need to discuss with Dr Lozada if patient will benefit from pigtail catheter -Continue Duonebs Q4H [facility] with mucomist -Antibiotics discontinued at this time patient not showing signs of infection -Infectious disease, Dr Brock on consult, help appreciated -S/p thoracentesis with Dr. Chavis 10/02, Right pleural effusion, US guided right thoracentesis 1 liter of brittany colored fluid -Imaging: - Chest XR 10/01: Interval development of pleural effusions with loculated component along the right lateral chest wall. Moderate pulmonary venous congestion. Underlying pulmonary edema especially in the right lung is also a consideration. Follow up after medical management is recommended to ensure complete resolution. - Chest XR 10/04: Potential pulmonary vascular congestion vs infiltrates with possible trace left pleural effusion. Improved from 10/02 - Chest XR 10/05: Showing increased pulmonary vascular congestion compared to 10/04 - Chest XR 10/09- showing significant congestion - CXR 10/10: Less dense consolidation right lung base-improved aeration/less passive compressive atelectasis inferred and/or partial clearing of some right pleural fluid. No pneumothorax seen. Extensive bilateral pleural effusions still persist. Less now on the right than before. VRE + Urine -Hernandes placed with CBI -101 F overnight on 10/14/18 at 12:30am -Tylenol given -Blood Cx 10/14 show no growth x 24 hours -Urine Cx 09/30 show VRE -If patient spikes another fever, we can repeat urine cultures Hypotension - Monitor albumin, administer prn doses - Midodrine 5mg PO TID Hyperthyroidism -On Methimazole 10mg Q8H [facility] During this prolonged hospital stay, patient treated for the following medical problems. See prior notes for details. 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 Low TSH, and Free T4 Thyroid Storm -Anemia Likely Secondary to Chronic Diseases Dysfunctional uterine bleeding -Vitamin D deficiency -Thrombocytopenia-->resolved -13 mm Left Adrenal Nodule -Hypernatremia (resolved) -Deconditioning -Tardive Dyskinesa Prophylactic measure * Protonix 40mg GT BID * Lactobacillus 1 cap PO BID * MVI 1x/day * Vitamin C 1,000 NG 1x/day * s/p Trach and Peg * SCD on Right and contraindicated on Left due to DVT * Peg feedings * Pulmcar 40cc/hr * patient had frequent BMs on prior formula; no diarrhea; we have spoken with dietary to change it on 08/19/18 * PICC Line d/c due to coiling * Patient has midline access * Note: speak to patient in alexis to assess neurologic status-->she does follow sometimes * s/p bronchoscopy 08/23 * s/p IVC filter 08/23 * s/p LP 09/15 * s/p right chest tube insertion 09/06; removed 09/15 * patient is FULL CODE * Provigil 50mg PO daily started to promote wakefulness during the day. * Social work note (08/09/18): patient is undocumented, has not health insurance, dc planning will be at home with Disposition: Continue aggressive PT/OT. We will reach out to Dr Lozada in regards to recurrent pleural effusions. Overall prognosis is poor. Plan discussed with Dr Maria Teresa Carrillo DO PGY-2 <[place] Nesbitt - Last Filed: 10/21/18 15:46> Objective - Vital Signs/Intake and Output Vital Signs (last 24 hours): Temp Pulse Resp BP Pulse Ox 97.7 F 76 21 87/57 L 100 10/21/18 15:04 10/21/18 15:04 10/21/18 15:04 10/21/18 15:04 10/21/18 12:00 Intake and Output: 10/21/18 10/21/18 06:59 18:59 Intake Total 650 10 Output Total 250 Balance 400 10 - Medications Medications: Current Medications Acetylcysteine (Acetylcysteine 20%) 4 ml INH RQ4 [facility] Last Admin: 10/21/18 13:34 Dose: Not Given Ascorbic Acid (Vitamin C 500 Mg Tab) 1,000 mg NG DAILY [facility] Last Admin: 10/21/18 10:19 Dose: 1,000 mg Aspirin (Aspirin Chewable) 81 mg GT DAILY [facility] Last Admin: 10/21/18 10:19 Dose: 81 mg Dextrose (Dextrose 50% Inj) 0 ml IVP .STAT PRN; Protocol PRN Reason: Hypoglycemia Protocol Dextrose (Glutose 15) 0 gm PO .ONCE PRN; Protocol PRN Reason: Hypoglycemia Protocol Furosemide (Lasix) 20 mg IVP ONCE PRN PRN Reason: Cough and congestion Glucagon (Glucagen Diagnostic Kit) 0 mg IM .STAT PRN; Protocol PRN Reason: Hypoglycemia Protocol Insulin Aspart (Novolog) 0 unit SC Q12H [facility]; Protocol Last Admin: 10/21/18 12:30 Dose: 2 u Lactobacillus Acidophilus (Bacid Acidophilus) 1 cap GT BID [facility] Last Admin: 10/21/18 10:19 Dose: 1 cap Methimazole (Tapazole) 20 mg PO Q8 [facility] Last Admin: 10/21/18 13:34 Dose: 20 mg Midodrine (Proamatine) 10 mg PO TID [facility] Last Admin: 10/21/18 13:34 Dose: 10 mg Modafinil (Provigil) 50 mg PO DAILY [facility] Last Admin: 10/21/18 10:19 Dose: 50 mg Multivitamins (Hexavitamin) 1 tab PEG DAILY [facility] Last Admin: 10/21/18 10:19 Dose: 1 tab Pantoprazole Sodium (Protonix Susp) 40 mg GT Q12H [facility] Last Admin: 10/21/18 10:27 Dose: 40 mg Tamsulosin HCl (Flomax) 0.4 mg PEG DAILY [facility] Last Admin: 10/21/18 10:19 Dose: 0.4 mg Vitamin A (Vitamin A & D Oint Ud Foilpak) 0.5 ea TOP BID [facility] Last Admin: 10/21/18 10:24 Dose: 0.5 ea - Labs Labs: 10/20/18 06:24 10/20/18 06:21 PT 13.2 SECONDS (9.7-12.2) H 10/18/18 05:47 INR 1.2 10/18/18 05:47 APTT 23 SECONDS (21-34) 10/02/18 06:10 Attending/Attestation - Attestation I have personally seen and examined this patient.: Yes I have fully participated in the care of the patient.: Yes I have reviewed all pertinent clinical information, including history, physical exam and plan: Yes Notes (Text): 10/21/18 15:46 This is a late entry. Care of this patient was gone over with resident . [place] Nesbitt D.O.
[2018-10-16] MEDS: (Novolog) Insulin Aspart, Recombinant 100 u/ml 10 ml vial SC SCH ×2 (00:30→12:50)
[2018-10-16] MEDS: Acetylcysteine 20% Inhal Soln (4ml) INH SCH ×7 (05:56→19:42)
--- NOTE | 2018-10-16 07:34 | CP.PCM.PN ---
<Elijah Weinberg - Last Filed: 10/16/18 13:56> Subjective - Date & Time of Evaluation Date of Evaluation: 10/16/18 Time of Evaluation: 07:34 - Subjective Subjective: PGY-[address] Merry Nesbitt Patient seen and examined at bedside. No acute events overnight. Clinically unchanged. S/p thoracentesis on Friday 10/13 with removal about 1L fluid with significant interval improvement of pleural effusion on the right on chest xray. ROS unable to be obtained. Objective - Vital Signs/Intake and Output Vital Signs (last 24 hours): Temp Pulse Resp BP Pulse Ox 97.9 F 83 16 92/45 L 97 10/16/18 00:00 10/15/18 16:02 10/15/18 16:02 10/15/18 16:02 10/16/18 00:00 Intake and Output: 10/16/18 10/16/18 06:59 18:59 Intake Total 580 Output Total 220 Balance 360 - Medications Medications: Current Medications Acetylcysteine (Acetylcysteine 20%) 4 ml INH RQ4 [facility] Last Admin: 10/16/18 05:58 Dose: Not Given Ascorbic Acid (Vitamin C 500 Mg Tab) 1,000 mg NG DAILY [facility] Last Admin: 10/15/18 10:13 Dose: 1,000 mg Aspirin (Aspirin Chewable) 81 mg GT DAILY [facility] Last Admin: 10/15/18 10:13 Dose: 81 mg Dextrose (Dextrose 50% Inj) 0 ml IVP .STAT PRN; Protocol PRN Reason: Hypoglycemia Protocol Dextrose (Glutose 15) 0 gm PO .ONCE PRN; Protocol PRN Reason: Hypoglycemia Protocol Glucagon (Glucagen Diagnostic Kit) 0 mg IM .STAT PRN; Protocol PRN Reason: Hypoglycemia Protocol Insulin Aspart (Novolog) 0 unit SC Q12H [facility]; Protocol Last Admin: 10/16/18 00:30 Dose: Not Given Lactobacillus Acidophilus (Bacid Acidophilus) 1 cap GT BID [facility] Last Admin: 10/15/18 17:33 Dose: 1 cap Methimazole (Tapazole) 20 mg PO Q8 [facility] Last Admin: 10/16/18 05:17 Dose: 20 mg Midodrine (Proamatine) 5 mg PO TID [facility] Last Admin: 10/15/18 17:33 Dose: 5 mg Modafinil (Provigil) 50 mg PO DAILY [facility] Last Admin: 10/15/18 10:13 Dose: 50 mg Multivitamins (Hexavitamin) 1 tab PEG DAILY [facility] Last Admin: 10/15/18 10:13 Dose: 1 tab Pantoprazole Sodium (Protonix Susp) 40 mg GT Q12H [facility] Last Admin: 10/15/18 22:00 Dose: 40 mg Tamsulosin HCl (Flomax) 0.4 mg PEG DAILY [facility] Last Admin: 10/15/18 10:13 Dose: 0.4 mg Vitamin A (Vitamin A & D Oint Ud Foilpak) 0.5 ea TOP BID [facility] Last Admin: 10/15/18 17:34 Dose: 0.5 ea - Labs Labs: 10/13/18 06:51 10/13/18 06:21 PT 13.5 SECONDS (9.7-12.2) H 10/12/18 11:55 INR 1.2 10/12/18 11:55 APTT 23 SECONDS (21-34) 10/02/18 06:10 - Constitutional Appears: Non-toxic, No Acute Distress - Head Exam Head Exam: ATRAUMATIC, NORMOCEPHALIC - Eye Exam Eye Exam: EOMI, Normal appearance - ENT Exam ENT Exam: Mucous Membranes Moist - Neck Exam Additional comments: trach in place - Respiratory Exam Respiratory Exam: Decreased Breath Sounds, NORMAL BREATHING PATTERN. absent: Rhonchi, Wheezes Additional comments: on vent - Cardiovascular Exam Cardiovascular Exam: REGULAR RHYTHM, +S1, +S2 - GI/Abdominal Exam GI & Abdominal Exam: Soft, Normal Bowel Sounds. absent: Tenderness - Extremities Exam Extremities Exam: absent: Pedal Edema, Tenderness - Neurological Exam Neurological Exam: Awake. absent: Alert, Oriented x3 - Psychiatric Exam Psychiatric exam: Flat Affect - Skin Skin Exam: Dry, Intact Assessment and Plan - Assessment and Plan (Free Text) Assessment: Recurrent Pleural Effusions -Stable, Afebrile, Off Abx -Patient is s/p right thoracentesis, done 10/13/18. As per report, 1000cc of elías r fluid were aspirated -CXR on 10/13/18 showed Interval significant improvement in right pleural effu tyson versus pulmonary edema. No pneumothorax. Worsening left pleural effusion versus pulmonary edema and redemonstration of loculated effusion along the left lateral chest wall. Stable position of the tracheostomy tube (see full report) -As patient keeps developing pleural effusions, we will need to discuss with Dr Lozada if patient will benefit from pigtail catheter -Continue Duonebs Q4H [facility] with mucomist -Infectious disease, Dr Brock on consult, help appreciated -Imaging: - Chest XR 10/01: Interval development of pleural effusions with loculated component along the right lateral chest wall. Moderate pulmonary venous congestion. Underlying pulmonary edema especially in the right lung is also a consideration. Follow up after medical management is recommended to ensure complete resolution. - Chest XR 10/04: Potential pulmonary vascular congestion vs infiltrates with possible trace left pleural effusion. Improved from 10/02 - Chest XR 10/05: Showing increased pulmonary vascular congestion compared to 10/04 - Chest XR 10/09: showing significant congestion - CXR 10/10: Less dense consolidation right lung base-improved aeration/less passive compressive atelectasis inferred and/or partial clearing of some right pleural fluid. No pneumothorax seen. Extensive bilateral pleural effusions stil l persist. Less now on the right than before. VRE + Urine -Hernandes placed with CBI -Afebrile sice 10/14 (blood cultures repeated) -Blood Cx 10/14 show no growth x 48 hours -Urine Cx 09/30 +VRE -If patient spikes another fever, we can repeat urine cultures -Tylenol prn fever Hypotension - Monitor albumin, administer prn doses - Midodrine 5mg PO TID Hyperthyroidism -On Methimazole 10mg Q8H [facility] During this prolonged hospital stay, patient treated for the following medical problems. See prior notes for details. 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 Low TSH, and Free T4 Thyroid Storm -Anemia Likely Secondary to Chronic Diseases Dysfunctional uterine bleeding -Vitamin D deficiency -Thrombocytopenia -13 mm Left Adrenal Nodule -Hypernatremia -Deconditioning -Tardive Dyskinesa Prophylactic measure * Protonix 40mg GT BID * Lactobacillus 1 cap PO BID * MVI 1x/day * Vitamin C 1,000 NG 1x/day * s/p Trach and Peg * SCD on Right and contraindicated on Left due to DVT * Peg feedings * Pulmcar 40cc/hr * patient had frequent BMs on prior formula; no diarrhea; we have spoken with dietary to change it on 08/19/18 * PICC Line d/c due to coiling * Patient has midline access * Note: speak to patient in alexis to assess neurologic status-->she does follow sometimes * s/p bronchoscopy 08/23 * s/p IVC filter 08/23 * s/p LP 09/15 * s/p right chest tube insertion 09/06; removed 09/15 * patient is FULL CODE * Provigil 50mg PO daily started to promote wakefulness during the day. * Social work note (08/09/18): patient is undocumented, has not health insurance, dc planning will be at home with Disposition: Continue aggressive PT/OT. We will reach out to Dr Lozada in regards to recurrent pleural effusions. Overall prognosis is poor. Plan discussed with Dr Maria Teresa Weinberg, PGY-1 <[place]itt - Last Filed: 10/21/18 15:46> Objective - Vital Signs/Intake and Output Vital Signs (last 24 hours): Temp Pulse Resp BP Pulse Ox 97.7 F 76 21 87/57 L 100 10/21/18 15:04 10/21/18 15:04 10/21/18 15:04 10/21/18 15:04 10/21/18 12:00 Intake and Output: 10/21/18 10/21/18 06:59 18:59 Intake Total 650 10 Output Total 250 Balance 400 10 - Medications Medications: Current Medications Acetylcysteine (Acetylcysteine 20%) 4 ml INH RQ4 [facility] Last Admin: 10/21/18 13:34 Dose: Not Given Ascorbic Acid (Vitamin C 500 Mg Tab) 1,000 mg NG DAILY [facility] Last Admin: 10/21/18 10:19 Dose: 1,000 mg Aspirin (Aspirin Chewable) 81 mg GT DAILY [facility] Last Admin: 10/21/18 10:19 Dose: 81 mg Dextrose (Dextrose 50% Inj) 0 ml IVP .STAT PRN; Protocol PRN Reason: Hypoglycemia Protocol Dextrose (Glutose 15) 0 gm PO .ONCE PRN; Protocol PRN Reason: Hypoglycemia Protocol Furosemide (Lasix) 20 mg IVP ONCE PRN PRN Reason: Cough and congestion Glucagon (Glucagen Diagnostic Kit) 0 mg IM .STAT PRN; Protocol PRN Reason: Hypoglycemia Protocol Insulin Aspart (Novolog) 0 unit SC Q12H [facility]; Protocol Last Admin: 10/21/18 12:30 Dose: 2 u Lactobacillus Acidophilus (Bacid Acidophilus) 1 cap GT BID [facility] Last Admin: 10/21/18 10:19 Dose: 1 cap Methimazole (Tapazole) 20 mg PO Q8 [facility] Last Admin: 10/21/18 13:34 Dose: 20 mg Midodrine (Proamatine) 10 mg PO TID [facility] Last Admin: 10/21/18 13:34 Dose: 10 mg Modafinil (Provigil) 50 mg PO DAILY [facility] Last Admin: 10/21/18 10:19 Dose: 50 mg Multivitamins (Hexavitamin) 1 tab PEG DAILY [facility] Last Admin: 10/21/18 10:19 Dose: 1 tab Pantoprazole Sodium (Protonix Susp) 40 mg GT Q12H [facility] Last Admin: 10/21/18 10:27 Dose: 40 mg Tamsulosin HCl (Flomax) 0.4 mg PEG DAILY [facility] Last Admin: 10/21/18 10:19 Dose: 0.4 mg Vitamin A (Vitamin A & D Oint Ud Foilpak) 0.5 ea TOP BID [facility] Last Admin: 10/21/18 10:24 Dose: 0.5 ea - Labs Labs: 10/20/18 06:24 10/20/18 06:21 PT 13.2 SECONDS (9.7-12.2) H 10/18/18 05:47 INR 1.2 10/18/18 05:47 APTT 23 SECONDS (21-34) 10/02/18 06:10 Attending/Attestation - Attestation I have personally seen and examined this patient.: Yes I have fully participated in the care of the patient.: Yes I have reviewed all pertinent clinical information, including history, physical exam and plan: Yes Notes (Text): 10/21/18 15:46 This is a late entry. Care of this patient was gone over with resident Dr. Weinberg. [place] Nesbitt D.O.
[2018-10-16] MEDS: Pantoprazole 40 mg Susp UD GT SCH ×2 (09:21→20:40)
[2018-10-16] MEDS: Modafinil 50 MG TAB PO SCH (09:21)
[2018-10-16] MEDS: Lactobacillus Acidophilus 500 MU Cap GT SCH ×2 (09:21→17:48)
[2018-10-16] MEDS: Multiple Vitamins Tab PEG SCH (09:22)
[2018-10-16] MEDS: Vitamins A & D Oint UD Foilpak TOP SCH ×2 (09:22→17:49)
--- NOTE | 2018-10-16 11:15 | CP.PCM.PN ---
Subjective - Date & Time of Evaluation Date of Evaluation: 10/16/18 Time of Evaluation: 08:00 - Subjective Subjective: afebrile nad on vent via trach Objective - Vital Signs/Intake and Output Vital Signs (last 24 hours): Temp Pulse Resp BP Pulse Ox 97.0 F L 82 17 96/52 L 97 10/16/18 08:00 10/16/18 08:02 10/16/18 08:02 10/16/18 08:02 10/16/18 08:02 Intake and Output: 10/16/18 10/16/18 06:59 18:59 Intake Total 650 Output Total 220 Balance 430 - Medications Medications: Current Medications Acetylcysteine (Acetylcysteine 20%) 4 ml INH RQ4 [facility] Last Admin: 10/16/18 05:58 Dose: Not Given Ascorbic Acid (Vitamin C 500 Mg Tab) 1,000 mg NG DAILY [facility] Last Admin: 10/16/18 09:21 Dose: 1,000 mg Aspirin (Aspirin Chewable) 81 mg GT DAILY [facility] Last Admin: 10/16/18 09:22 Dose: 81 mg Dextrose (Dextrose 50% Inj) 0 ml IVP .STAT PRN; Protocol PRN Reason: Hypoglycemia Protocol Dextrose (Glutose 15) 0 gm PO .ONCE PRN; Protocol PRN Reason: Hypoglycemia Protocol Glucagon (Glucagen Diagnostic Kit) 0 mg IM .STAT PRN; Protocol PRN Reason: Hypoglycemia Protocol Insulin Aspart (Novolog) 0 unit SC Q12H [facility]; Protocol Last Admin: 10/16/18 00:30 Dose: Not Given Lactobacillus Acidophilus (Bacid Acidophilus) 1 cap GT BID [facility] Last Admin: 10/16/18 09:21 Dose: 1 cap Methimazole (Tapazole) 20 mg PO Q8 [facility] Last Admin: 10/16/18 05:17 Dose: 20 mg Midodrine (Proamatine) 5 mg PO TID [facility] Last Admin: 10/16/18 09:21 Dose: 5 mg Modafinil (Provigil) 50 mg PO DAILY [facility] Last Admin: 10/16/18 09:21 Dose: 50 mg Multivitamins (Hexavitamin) 1 tab PEG DAILY [facility] Last Admin: 10/16/18 09:22 Dose: 1 tab Pantoprazole Sodium (Protonix Susp) 40 mg GT Q12H [facility] Last Admin: 10/16/18 09:21 Dose: 40 mg Tamsulosin HCl (Flomax) 0.4 mg PEG DAILY [facility] Last Admin: 10/16/18 09:22 Dose: 0.4 mg Vitamin A (Vitamin A & D Oint Ud Foilpak) 0.5 ea TOP BID [facility] Last Admin: 10/16/18 09:22 Dose: 0.5 ea - Labs Labs: 10/13/18 06:51 10/13/18 06:21 PT 13.5 SECONDS (9.7-12.2) H 10/12/18 11:55 INR 1.2 10/12/18 11:55 APTT 23 SECONDS (21-34) 10/02/18 06:10 - Constitutional Appears: Non-toxic, Cachectic, Chronically Ill - Head Exam Head Exam: NORMOCEPHALIC - Eye Exam Eye Exam: absent: Scleral icterus - ENT Exam ENT Exam: Mucous Membranes Dry - Neck Exam Neck Exam: absent: Lymphadenopathy - Respiratory Exam Respiratory Exam: Decreased Breath Sounds - Cardiovascular Exam Cardiovascular Exam: REGULAR RHYTHM, +S1, +S2 - GI/Abdominal Exam GI & Abdominal Exam: Distended, Soft. absent: Tenderness - Rectal Exam Rectal Exam: Deferred - Exam Exam: NORMAL INSPECTION - Extremities Exam Extremities Exam: absent: Pedal Edema - Back Exam Back Exam: absent: CVA tenderness (L), CVA tenderness (R) - Neurological Exam Neurological Exam: Altered Assessment and Plan (1) NEHA (acute kidney injury) Status: Acute (2) Acute renal failure Status: Acute (3) Acute respiratory failure Status: Acute (4) Aspiration pneumonia Status: Acute (5) Septic shock Status: Acute (6) Urinary tract infection Status: Acute (7) Diabetes mellitus Status: Chronic (8) Anoxic brain damage Status: Acute - Assessment and Plan (Free Text) Assessment: afeb off antibiotics no new cultures cont vent management / ICU care
[2018-10-17] MEDS: (Novolog) Insulin Aspart, Recombinant 100 u/ml 10 ml vial SC SCH ×2 (00:08→12:00)
[2018-10-17] MEDS: Acetylcysteine 20% Inhal Soln (4ml) INH SCH ×6 (00:50→19:32)
--- NOTE | 2018-10-17 01:54 | CP.PCM.PCO ---
Physician Communication Note - Physician Communication Note Physician Communication Note: Please see above
[2018-10-17 06:16] LABS: BASO # 0.1 K/uL (0.0-0.2); BASO % 0.9 % (0.0-2.0); EOS # 0.5 K/uL (0.0-0.7); EOS % 5.6 % (0.0-4.0); HEMOGLOBIN 8.1 g/dL (11.0-16.0); LYMPH # 1.3 K/uL (1.0-4.3); LYMPH % 14.4 % (20.0-40.0); MEAN CELL VOLUME 93.1 fL (81.0-99.0); MEAN CORPUSCULAR HEMOGLOBIN 30.9 pg (27.0-31.0); MEAN CORPUSCULAR HGB CONC 33.2 g/dL (33.0-37.0); MEAN PLATELET VOLUME 8.2 fL (7.2-11.7); MONO # 0.5 K/uL (0.0-0.8); MONO % 5.7 % (0.0-10.0); NEUT # 6.4 K/uL (1.8-7.0); NEUT % 73.4 % (50.0-75.0); NRBC % 0.1 % (0.0-2.0); RBC 2.63 Mil/uL (3.80-5.20); WHITE BLOOD COUNT 8.8 K/uL (4.8-10.8)
[2018-10-17 06:29] LABS: GLUCOSE PLEURAL FLUID 146 mg/dL; LDH PLEURAL FLUID 145 U/L; TOTAL PROTEIN PLEURAL FLUID <3.0 g/dL
[2018-10-17 06:44] LABS: ALB/GLOB RATIO 0.9 (1.0-2.1); ALBUMIN 2.6 g/dL (3.5-5.0); ALT/SGPT 27 U/L (9-52); AST/SGOT 36 U/L (14-36); BLOOD UREA NITROGEN 33 mg/dL (7-17); CALCIUM 7.6 mg/dl (8.6-10.4); GFR NON-AFRICAN AMERICAN > 60
[2018-10-17] MEDS: Vitamins A & D Oint UD Foilpak TOP SCH ×2 (09:47→17:41)
[2018-10-17] MEDS: Lactobacillus Acidophilus 500 MU Cap GT SCH ×2 (09:47→17:42)
[2018-10-17] MEDS: Multiple Vitamins Tab PEG SCH (09:47)
[2018-10-17] MEDS: Pantoprazole 40 mg Susp UD GT SCH ×2 (09:47→21:09)
[2018-10-17] MEDS: Modafinil 50 MG TAB PO SCH (09:48)
--- NOTE | 2018-10-17 13:21 | RAD ---
Date of service: 10/17/2018 HISTORY: Monitor pleural effusion COMPARISON: 10/13/2018 FINDINGS: LUNGS: The opacities left lung base has increased-interval increase left pleural effusion special along the left inferolateral border of it is inferred. Interval left mid lung zone discoid atelectasis suggested. An element of concomitant left pleural thickening reaction or rind is also suspect given the extension to the left apex. Interval increased opacity right lung base here interval increasing right pleural effusion with probable compressive atelectasis is inferred. Additional concomitant bibasilar underlying infiltrates not excluded. Tracheostomy tube appears satisfactory in place. PLEURA: Increasing bilateral pleural effusions. Left pleural effusion loculation at least in part suspect. No pneumothorax appreciated. CARDIOVASCULAR: No aortic atherosclerotic calcification present. Cardiomegaly . concomitant mild pulmonary venous congestion suspect. OSSEOUS STRUCTURES: No significant abnormalities. VISUALIZED UPPER ABDOMEN: Normal. OTHER FINDINGS: None. IMPRESSION: Bilateral pleural effusions increasing left effusion-partly loculated as before. Inferred increasing bibasilar compressive atelectasis. Other findings as above.
--- NOTE | 2018-10-17 13:59 | CP.PCM.PN ---
<Elijah Weinberg - Last Filed: 10/17/18 14:09> Subjective - Date & Time of Evaluation Date of Evaluation: 10/17/18 Time of Evaluation: 13:54 - Subjective Subjective: PGY-[address] Leahy Patient seen and examined at bedside. No acute events overnight. She was noted to possibly be mouthing words today, though it is hard to tell. Repeat CXR today shows pleural effusions increasing bilaterally, with significant effusion on the left side. Pulm evaluating patient for possible chest tube insertion tomorrow. ROS unable to be obtained. Objective - Vital Signs/Intake and Output Vital Signs (last 24 hours): Temp Pulse Resp BP Pulse Ox 99 F 87 14 90/50 L 100 10/17/18 12:00 10/17/18 10:00 10/17/18 08:00 10/17/18 08:00 10/17/18 12:00 Intake and Output: 10/17/18 10/17/18 06:59 18:59 Intake Total 540 200 Balance 540 200 - Medications Medications: Current Medications Acetylcysteine (Acetylcysteine 20%) 4 ml INH RQ4 [facility] Last Admin: 10/17/18 11:54 Dose: Not Given Ascorbic Acid (Vitamin C 500 Mg Tab) 1,000 mg NG DAILY [facility] Last Admin: 10/17/18 09:47 Dose: 1,000 mg Aspirin (Aspirin Chewable) 81 mg GT DAILY [facility] Last Admin: 10/17/18 09:47 Dose: 81 mg Dextrose (Dextrose 50% Inj) 0 ml IVP .STAT PRN; Protocol PRN Reason: Hypoglycemia Protocol Dextrose (Glutose 15) 0 gm PO .ONCE PRN; Protocol PRN Reason: Hypoglycemia Protocol Glucagon (Glucagen Diagnostic Kit) 0 mg IM .STAT PRN; Protocol PRN Reason: Hypoglycemia Protocol Insulin Aspart (Novolog) 0 unit SC Q12H [facility]; Protocol Last Admin: 10/17/18 00:08 Dose: Not Given Lactobacillus Acidophilus (Bacid Acidophilus) 1 cap GT BID [facility] Last Admin: 10/17/18 09:47 Dose: 1 cap Methimazole (Tapazole) 20 mg PO Q8 [facility] Last Admin: 10/17/18 05:44 Dose: 20 mg Midodrine (Proamatine) 5 mg PO TID [facility] Last Admin: 10/17/18 09:47 Dose: 5 mg Modafinil (Provigil) 50 mg PO DAILY [facility] Last Admin: 10/17/18 09:48 Dose: 50 mg Multivitamins (Hexavitamin) 1 tab PEG DAILY [facility] Last Admin: 10/17/18 09:47 Dose: 1 tab Pantoprazole Sodium (Protonix Susp) 40 mg GT Q12H [facility] Last Admin: 10/17/18 09:47 Dose: 40 mg Tamsulosin HCl (Flomax) 0.4 mg PEG DAILY [facility] Last Admin: 10/17/18 09:47 Dose: 0.4 mg Vitamin A (Vitamin A & D Oint Ud Foilpak) 0.5 ea TOP BID [facility] Last Admin: 10/17/18 09:47 Dose: 0.5 ea - Labs Labs: 10/17/18 06:05 10/17/18 06:05 PT 13.5 SECONDS (9.7-12.2) H 10/12/18 11:55 INR 1.2 10/12/18 11:55 APTT 23 SECONDS (21-34) 10/02/18 06:10 - Head Exam Head Exam: ATRAUMATIC, NORMOCEPHALIC - Eye Exam Eye Exam: EOMI - ENT Exam ENT Exam: Mucous Membranes Moist - Neck Exam Additional comments: trach - Respiratory Exam Respiratory Exam: Clear to Ausculation Bilateral, NORMAL BREATHING PATTERN. absent: Rhonchi, Wheezes Additional comments: trach - Cardiovascular Exam Cardiovascular Exam: REGULAR RHYTHM, +S1, +S2 - GI/Abdominal Exam GI & Abdominal Exam: Soft, Normal Bowel Sounds. absent: Tenderness - Extremities Exam Extremities Exam: absent: Pedal Edema - Neurological Exam Neurological Exam: Awake. absent: Alert, Oriented x3 - Psychiatric Exam Psychiatric exam: Flat Affect - Skin Skin Exam: Dry, Intact Assessment and Plan - Assessment and Plan (Free Text) Assessment: Recurrent Pleural Effusions -Stable, Afebrile, Off Abx -Patient is s/p right thoracentesis, done 10/13/18. As per report, 1000cc of clear fluid were aspirated -CXR on 10/13/18 showed Interval significant improvement in right pleural effusion versus pulmonary edema. No pneumothorax. Worsening left pleural effusion versus pulmonary edema and redemonstration of loculated effusion along the left lateral chest wall. Stable position of the tracheostomy tube (see full report) -As patient keeps developing pleural effusions, we will need to discuss with Dr Lozada if patient will benefit from pigtail catheter -Continue Duonebs Q4H [facility] with mucomist -Infectious disease, Dr Brock on consult, help appreciated -Imaging: - Chest XR 10/01: Interval development of pleural effusions with loculated c omponent along the right lateral chest wall. Moderate pulmonary venous congestion. Underlying pulmonary edema especially in the right lung is also a consideration. Follow up after medical management is recommended to ensure complete resolution. - Chest XR 10/04: Potential pulmonary vascular congestion vs infiltrates with possible trace left pleural effusion. Improved from 10/02 - Chest XR 10/05: Showing increased pulmonary vascular congestion compared to 10/04 - Chest XR 10/09: showing significant congestion - CXR 10/10: Less dense consolidation right lung base-improved aeration/less passive compressive atelectasis inferred and/or partial clearing of some right pleural fluid. No pneumothorax seen. Extensive bilateral pleural effusions still persist. Less now on the right than before. - CXR 10/17 - Worsening pleural effusions bilaterally. Significant pleural effusion on the left. - Dr. Lozada agreed to assess tomorrow for possible chest tube placement tomorrow. Will follow up. VRE + Urine -Hernandes placed with CBI -Afebrile sice 10/14 (blood cultures repeated) -Blood Cx 10/14 show no growth x 48 hours -Urine Cx 09/30 +VRE -If patient spikes another fever, we can repeat urine cultures -Tylenol prn fever Hypotension - Monitor albumin, administer prn doses - Midodrine increased to 10 mg PO TID (from 5 Tid) Hyperthyroidism -On Methimazole 10mg Q8H [facility] Prophylactic measure * Protonix 40mg GT BID * Lactobacillus 1 cap PO BID * MVI 1x/day * Vitamin C 1,000 NG 1x/day * s/p Trach and Peg * SCD on Right and contraindicated on Left due to DVT * Peg feedings * Pulmcar 40cc/hr * patient had frequent BMs on prior formula; no diarrhea; we have spoken with dietary to change it on 08/19/18 * PICC Line d/c due to coiling * Patient has midline access * Note: speak to patient in alexis to assess neurologic status-->she does follow sometimes * s/p bronchoscopy 08/23 * s/p IVC filter 08/23 * s/p LP 09/15 * s/p right chest tube insertion 09/06; removed 09/15 * patient is FULL CODE * Provigil 50mg PO daily started to promote wakefulness during the day. * Social work note (08/09/18): patient is undocumented, has not health insurance, dc planning will be at home with * * During this prolonged hospital stay, patient treated for the following medical problems. See prior notes for details. 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 Low TSH, and Free T4 Thyroid Storm -Anemia Likely Secondary to Chronic Diseases Dysfunctional uterine bleeding -Vitamin D deficiency -Thrombocytopenia -13 mm Left Adrenal Nodule -Hypernatremia -Deconditioning -Tardive Dyskinesa Disposition: Continue aggressive PT/OT. Possible chest tube placement tomorrow with Dr. Lozada for worsening pleural effusions - significant pleural effusion developing on the left. Plan discussed with Dr. Armond Weinberg, PGY-1 <Saira Leahy V - Last Filed: 10/18/18 01:28> Objective - Vital Signs/Intake and Output Vital Signs (last 24 hours): Temp Pulse Resp BP Pulse Ox 99.8 F H 78 20 96/45 L 100 10/18/18 00:00 10/18/18 00:00 10/18/18 00:00 10/17/18 23:53 10/18/18 00:00 Intake and Output: 10/17/18 10/18/18 18:59 06:59 Intake Total 440 Balance 440 - Medications Medications: Current Medications Acetylcysteine (Acetylcysteine 20%) 4 ml INH RQ4 [facility] Last Admin: 10/17/18 19:32 Dose: Not Given Ascorbic Acid (Vitamin C 500 Mg Tab) 1,000 mg NG DAILY [facility] Last Admin: 10/17/18 09:47 Dose: 1,000 mg Aspirin (Aspirin Chewable) 81 mg GT DAILY [facility] Last Admin: 10/17/18 09:47 Dose: 81 mg Dextrose (Dextrose 50% Inj) 0 ml IVP .STAT PRN; Protocol PRN Reason: Hypoglycemia Protocol Dextrose (Glutose 15) 0 gm PO .ONCE PRN; Protocol PRN Reason: Hypoglycemia Protocol Glucagon (Glucagen Diagnostic Kit) 0 mg IM .STAT PRN; Protocol PRN Reason: Hypoglycemia Protocol Insulin Aspart (Novolog) 0 unit SC Q12H [facility]; Protocol Last Admin: 10/18/18 00:29 Dose: Not Given Lactobacillus Acidophilus (Bacid Acidophilus) 1 cap GT BID [facility] Last Admin: 10/17/18 17:42 Dose: 1 cap Methimazole (Tapazole) 20 mg PO Q8 [facility] Last Admin: 10/17/18 21:07 Dose: 20 mg Midodrine (Proamatine) 10 mg PO TID [facility] Last Admin: 10/17/18 17:43 Dose: 10 mg Modafinil (Provigil) 50 mg PO DAILY [facility] Last Admin: 10/17/18 09:48 Dose: 50 mg Multivitamins (Hexavitamin) 1 tab PEG DAILY [facility] Last Admin: 10/17/18 09:47 Dose: 1 tab Pantoprazole Sodium (Protonix Susp) 40 mg GT Q12H [facility] Last Admin: 10/17/18 21:09 Dose: 40 mg Tamsulosin HCl (Flomax) 0.4 mg PEG DAILY [facility] Last Admin: 10/17/18 09:47 Dose: 0.4 mg Vitamin A (Vitamin A & D Oint Ud Foilpak) 0.5 ea TOP BID [facility] Last Admin: 10/17/18 17:41 Dose: 0.5 ea - Labs Labs: 10/17/18 06:05 10/17/18 06:05 PT 13.5 SECONDS (9.7-12.2) H 10/12/18 11:55 INR 1.2 10/12/18 11:55 APTT 23 SECONDS (21-34) 10/02/18 06:10 Assessment and Plan (1) Septic shock Status: Acute (2) Acute respiratory failure Status: Acute (3) Urinary tract infection Status: Acute (4) Acute renal failure Status: Acute (5) Aspiration pneumonia Status: Acute (6) Diabetes mellitus Status: Chronic (7) Ventricular arrhythmia Status: Acute (8) Hyperthyroidism Status: Acute (9) Anemia Status: Acute (10) Anoxic brain injury Status: Acute (11) Prophylactic measure Status: Acute Attending/Attestation - Attestation I have personally seen and examined this patient.: Yes I have fully participated in the care of the patient.: Yes I have reviewed all pertinent clinical information, including history, physical exam and plan: Yes Notes (Text): Patient seen, examined, and case discussed with day-time resident. This is a 53-year-old female with a prolonged hospitalization for treatment for septic shock complicated by both pneumonia and urinary tract infections, anoxic encephalopathy likely secondary to 2 cardiac arrest during hospitalization, hyperthyroidism which has been controlled on methimazole, shock liver which is now recovered, history of apical thrombus which is currently being treated with aspirin and is not on anticoagulation secondary to worsening heavy vaginal b leeding which required multiple blood transfusions during hospitalization, history of left lower extremity DVT which falling 1 month of anticoagulation has radiographically disappeared on repeat ultrasound and has now an IVC filter, as well as diabetes, vitamin D deficiency. Patient recently had a chest x-ray completed on Oct 13 wherein she went through a thoracentesis for pleural effusion. We have repeated chest xray today which noted worsening of pleural effusions; I have discussed with Dr. Lozada, patient will likely need pigtail catheter given the reaccumulation of fluid. Patient is noted to be incontinent of the urine has been straight cath when she does retain. Patient is on [address] [place] since 10/05/17 evening with CBI to clean out urine. Patient is off antibiotic since 10/05/17. Blood cultures 10/14/18 which show no growth for 3 days X2. She had a fever on 10/14/18 which was 101; has r emained afebrile since. Also note patient did underwent a lumbar puncture on September 15 HSV-2 IgM antibody, VDRL, and the West Nile are still pending. Physical therapy had signed off on September 24 because patient is not a candidate because she cannot follow directions. Patient would be an ideal candidate for LTAC however she does not have insurance, her is not from this [place] which limits her ability for services. The other thing is patient still remains trach to vent as well. Also to note patient does have sequential compressive stocking since the follow- up venous Doppler which did indicate that the clot had cleared.Patient does have noted muscle wasting. Wound care re-evaluated the patient on 10/05/18 for skin break down over the flexor surfaces over the knee. New recommendations were placed. Patient has dressings over the sites. Patient's midodrine increased to 10mg PO TID to increase blood pressure. Patient noted to have poor prognosis though she has survived many things during her hospitalization. Her who remains in high spirits hopes that she will recover and has been persistently at bedside every single day since being hospitalized in July. Today, patient has less lip smacking and appeared to be mouthing words. She would look at you with intent as if trying to engage in a conversation. My resident attempted to speak to her in Welsh but did not appear to follow. Patient prior to her hospitalization she noted fluency in 5 languages including gujarati, portuguese, lithuanian, alexis. Will continue to follow.
[2018-10-18] MEDS: (Novolog) Insulin Aspart, Recombinant 100 u/ml 10 ml vial SC SCH ×2 (00:29→13:38)
[2018-10-18] MEDS: Acetylcysteine 20% Inhal Soln (4ml) INH SCH ×6 (01:23→19:23)
[2018-10-18 06:08] LABS: INR 1.2; PROTHROMBIN TIME 13.2 SECONDS (9.7-12.2)
--- NOTE | 2018-10-18 09:22 | CP.PCM.PN ---
<Elijah Weinberg - Last Filed: 10/18/18 09:18> Subjective - Date & Time of Evaluation Date of Evaluation: 10/18/18 Time of Evaluation: 09:25 - Subjective Subjective: PGY-[address] Leahy Patient seen and examined at bedside. No acute events overnight. Patient noted to have 100% O2 saturation on the monitor this morning. May have chest tube placed today - will follow up. ROS unable to be obtained. Objective - Vital Signs/Intake and Output Vital Signs (last 24 hours): Temp Pulse Resp BP Pulse Ox 97.8 F 86 17 102/55 L 100 10/18/18 04:00 10/18/18 04:00 10/18/18 04:00 10/18/18 03:52 10/18/18 04:00 Intake and Output: 10/18/18 10/18/18 06:59 18:59 Intake Total 580 Output Total 400 Balance 180 - Medications Medications: Current Medications Acetylcysteine (Acetylcysteine 20%) 4 ml INH RQ4 [facility] Last Admin: 10/18/18 07:32 Dose: Not Given Ascorbic Acid (Vitamin C 500 Mg Tab) 1,000 mg NG DAILY [facility] Last Admin: 10/17/18 09:47 Dose: 1,000 mg Aspirin (Aspirin Chewable) 81 mg GT DAILY [facility] Last Admin: 10/17/18 09:47 Dose: 81 mg Dextrose (Dextrose 50% Inj) 0 ml IVP .STAT PRN; Protocol PRN Reason: Hypoglycemia Protocol Dextrose (Glutose 15) 0 gm PO .ONCE PRN; Protocol PRN Reason: Hypoglycemia Protocol Glucagon (Glucagen Diagnostic Kit) 0 mg IM .STAT PRN; Protocol PRN Reason: Hypoglycemia Protocol Insulin Aspart (Novolog) 0 unit SC Q12H [facility]; Protocol Last Admin: 10/18/18 00:29 Dose: Not Given Lactobacillus Acidophilus (Bacid Acidophilus) 1 cap GT BID [facility] Last Admin: 10/17/18 17:42 Dose: 1 cap Methimazole (Tapazole) 20 mg PO Q8 [facility] Last Admin: 10/18/18 04:59 Dose: 20 mg Midodrine (Proamatine) 10 mg PO TID [facility] Last Admin: 10/17/18 17:43 Dose: 10 mg Modafinil (Provigil) 50 mg PO DAILY [facility] Last Admin: 10/17/18 09:48 Dose: 50 mg Multivitamins (Hexavitamin) 1 tab PEG DAILY [facility] Last Admin: 10/17/18 09:47 Dose: 1 tab Pantoprazole Sodium (Protonix Susp) 40 mg GT Q12H [facility] Last Admin: 10/17/18 21:09 Dose: 40 mg Tamsulosin HCl (Flomax) 0.4 mg PEG DAILY [facility] Last Admin: 10/17/18 09:47 Dose: 0.4 mg Vitamin A (Vitamin A & D Oint Ud Foilpak) 0.5 ea TOP BID [facility] Last Admin: 10/17/18 17:41 Dose: 0.5 ea - Labs Labs: 10/17/18 06:05 10/17/18 06:05 PT 13.2 SECONDS (9.7-12.2) H 10/18/18 05:47 INR 1.2 10/18/18 05:47 APTT 23 SECONDS (21-34) 10/02/18 06:10 - Constitutional Appears: Non-toxic, No Acute Distress - Head Exam Head Exam: ATRAUMATIC, NORMOCEPHALIC - Eye Exam Eye Exam: EOMI, Normal appearance Pupil Exam: NORMAL ACCOMODATION - ENT Exam ENT Exam: Mucous Membranes Moist - Neck Exam Additional comments: trach in place - Respiratory Exam Respiratory Exam: Decreased Breath Sounds, NORMAL BREATHING PATTERN Additional comments: on vent. 02 sat 100% on monitor. - Cardiovascular Exam Cardiovascular Exam: REGULAR RHYTHM, +S1, +S2 - GI/Abdominal Exam GI & Abdominal Exam: Soft, Normal Bowel Sounds. absent: Tenderness - Extremities Exam Extremities Exam: absent: Pedal Edema, Tenderness - Neurological Exam Neurological Exam: Awake. absent: Alert - Psychiatric Exam Psychiatric exam: Flat Affect - Skin Skin Exam: Dry, Intact Assessment and Plan - Assessment and Plan (Free Text) Assessment: Recurrent Pleural Effusions -Stable, Afebrile, Off Abx -Patient is s/p right thoracentesis, done 10/13/18. As per report, 1000cc of clear fluid were aspirated -CXR on 10/13/18 showed Interval significant improvement in right pleural effusi on versus pulmonary edema. No pneumothorax. Worsening left pleural effusion versus pulmonary edema and redemonstration of loculated effusion along the left lateral chest wall. Stable position of the tracheostomy tube (see full report) -As patient keeps developing pleural effusions, we will need to discuss with Dr Lozada if patient will benefit from pigtail catheter -Continue Duonebs Q4H [facility] with mucomist -Infectious disease, Dr Brock on consult, help appreciated -Imaging: - Chest XR 10/01: Interval development of pleural effusions with loculated component along the right lateral chest wall. Moderate pulmonary venous congestion. Underlying pulmonary edema especially in the right lung is also a consideration. Follow up after medical management is recommended to ensure complete resolution. - Chest XR 10/04: Potential pulmonary vascular congestion vs infiltrates with possible trace left pleural effusion. Improved from 10/02 - Chest XR 10/05: Showing increased pulmonary vascular congestion compared to 10/04 - Chest XR 10/09: showing significant congestion - CXR 10/10: Less dense consolidation right lung base-improved aeration/less passive compressive atelectasis inferred and/or partial clearing of some right pleural fluid. No pneumothorax seen. Extensive bilateral pleural effusions still persist. Less now on the right than before. - CXR 10/17 - Worsening pleural effusions bilaterally. Significant pleural effusion on the left. - Dr. Lozada plans to assess for possible chest tube placement today. O2 sat was 100% on exam today and lungs did sound relatively clear. We will follow up. VRE + Urine -Hernandes placed with CBI -Afebrile sice 10/14 (blood cultures repeated) -Blood Cx 10/14 show no growth x 48 hours -Urine Cx 09/30 +VRE -If patient spikes another fever, we can repeat urine cultures -Tylenol prn fever Hypotension - Monitor albumin, administer prn doses - Midodrine increased to 10 mg PO TID (from 5 Tid) Hyperthyroidism -On Methimazole 10mg Q8H [facility] Prophylactic measure * Protonix 40mg GT BID * Lactobacillus 1 cap PO BID * MVI 1x/day * Vitamin C 1,000 NG 1x/day * s/p Trach and Peg * SCD on Right and contraindicated on Left due to DVT * Peg feedings * Pulmcar 40cc/hr * patient had frequent BMs on prior formula; no diarrhea; we have spoken with dietary to change it on 08/19/18 * PICC Line d/c due to coiling * Patient has midline access * Note: speak to patient in [place] to assess neurologic status-->she does follow sometimes * s/p bronchoscopy 11/21 * s/p IVC filter 08/23 * s/p LP 09/15 * s/p right chest tube insertion 09/06; removed 09/15 * patient is FULL CODE * Provigil 50mg PO daily started to promote wakefulness during the day. * Social work note (08/09/18): patient is undocumented, has not health insurance, dc planning will be at home with * * During this prolonged hospital stay, patient treated for the following medical problems. See prior notes for details. 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 Low TSH, and Free T4 Thyroid Storm -Anemia Likely Secondary to Chronic Diseases Dysfunctional uterine bleeding -Vitamin D deficiency -Thrombocytopenia -13 mm Left Adrenal Nodule -Hypernatremia -Deconditioning -Tardive Dyskinesa Disposition: Continue aggressive PT/OT. Possible chest tube placement later this afternoon with Dr. Lozada for worsening pleural effusions - significant pleural effusion developing on the left. Plan discussed with Dr. Armond Weinberg, PGY-1 <Saira Leahy V - Last Filed: 10/18/18 22:50> Objective - Vital Signs/Intake and Output Vital Signs (last 24 hours): Temp Pulse Resp BP Pulse Ox 97.8 F 86 17 102/55 L 100 10/18/18 04:00 10/18/18 04:00 10/18/18 04:00 10/18/18 03:52 10/18/18 04:00 Intake and Output: 10/18/18 10/18/18 06:59 18:59 Intake Total 580 Output Total 400 Balance 180 - Medications Medications: Current Medications Acetylcysteine (Acetylcysteine 20%) 4 ml INH RQ4 [facility] Last Admin: 10/18/18 07:32 Dose: Not Given Ascorbic Acid (Vitamin C 500 Mg Tab) 1,000 mg NG DAILY [facility] Last Admin: 10/17/18 09:47 Dose: 1,000 mg Aspirin (Aspirin Chewable) 81 mg GT DAILY [facility] Last Admin: 10/17/18 09:47 Dose: 81 mg Dextrose (Dextrose 50% Inj) 0 ml IVP .STAT PRN; Protocol PRN Reason: Hypoglycemia Protocol Dextrose (Glutose 15) 0 gm PO .ONCE PRN; Protocol PRN Reason: Hypoglycemia Protocol Glucagon (Glucagen Diagnostic Kit) 0 mg IM .STAT PRN; Protocol PRN Reason: Hypoglycemia Protocol Insulin Aspart (Novolog) 0 unit SC Q12H [facility]; Protocol Last Admin: 10/18/18 00:29 Dose: Not Given Lactobacillus Acidophilus (Bacid Acidophilus) 1 cap GT BID [facility] Last Admin: 10/17/18 17:42 Dose: 1 cap Methimazole (Tapazole) 20 mg PO Q8 [facility] Last Admin: 10/18/18 04:59 Dose: 20 mg Midodrine (Proamatine) 10 mg PO TID [facility] Last Admin: 10/17/18 17:43 Dose: 10 mg Modafinil (Provigil) 50 mg PO DAILY [facility] Last Admin: 10/17/18 09:48 Dose: 50 mg Multivitamins (Hexavitamin) 1 tab PEG DAILY [facility] Last Admin: 10/17/18 09:47 Dose: 1 tab Pantoprazole Sodium (Protonix Susp) 40 mg GT Q12H [facility] Last Admin: 10/17/18 21:09 Dose: 40 mg Tamsulosin HCl (Flomax) 0.4 mg PEG DAILY [facility] Last Admin: 10/17/18 09:47 Dose: 0.4 mg Vitamin A (Vitamin A & D Oint Ud Foilpak) 0.5 ea TOP BID [facility] Last Admin: 10/17/18 17:41 Dose: 0.5 ea - Labs Labs: 10/17/18 06:05 10/17/18 06:05 PT 13.2 SECONDS (9.7-12.2) H 10/18/18 05:47 INR 1.2 10/18/18 05:47 APTT 23 SECONDS (21-34) 10/02/18 06:10 Assessment and Plan (1) Septic shock Status: Acute (2) Acute respiratory failure Status: Acute (3) Urinary tract infection Status: Acute (4) Acute renal failure Status: Acute (5) Aspiration pneumonia Status: Acute (6) Diabetes mellitus Status: Chronic (7) Ventricular arrhythmia Status: Acute (8) Hyperthyroidism Status: Acute (9) Anemia Status: Acute (10) Anoxic brain injury Status: Acute (11) Prophylactic measure Status: Acute Attending/Attestation - Attestation I have personally seen and examined this patient.: Yes I have fully participated in the care of the patient.: Yes I have reviewed all pertinent clinical information, including history, physical exam and plan: Yes Notes (Text): Patient seen, examined, and case discussed with day-time resident. This is a 53-year-old female with a prolonged hospitalization for treatment for septic shock complicated by both pneumonia and urinary tract infections, anoxic encephalopathy likely secondary to 2 cardiac arrest during hospitalization, hyperthyroidism which has been controlled on methimazole, shock liver which is now recovered, history of apical thrombus which is currently being treated with aspirin and is not on anticoagulation secondary to worsening heavy vaginal bleeding which required multiple blood transfusions during hospitalization, history of left lower extremity DVT which falling 1 month of anticoagulation has radiographically disappeared on repeat ultrasound and has now an IVC filter, as well as diabetes, vitamin D deficiency. Patient recently had a chest x-ray completed on Oct 13 wherein she went thr ough a thoracentesis for pleural effusion. We have repeated chest xray today which noted worsening of pleural effusions; I have discussed with Dr. Lozada, patient will likely need pigtail catheter given the reaccumulation of fluid. Patient is noted to be incontinent of the urine has been straight cath when she does retain. Patient is on [address] way Hernandes since 10/05/17 evening with CBI to clean out urine. Patient is off antibiotic since 10/05/17. Blood cultures 10/14/18 which show no growth for 3 days X2. She had a fever on 10/14/18 which was 101; has remained afebrile since. Also note patient did underwent a lumbar puncture on September 15 HSV-2 IgM antibody, VDRL, and the West Nile are still pending. Physical therapy had signed off on September 24 because patient is not a candidate because she cannot follow directions. Patient would be an ideal candidate for LTAC however she does not have insura nce, her [place] this [place] which limits her ability for services. The other thing is patient still remains trach to vent as well. Also to note patient does have sequential compressive stocking since the follow- up venous Doppler which did indicate that the clot had cleared.Patient does have noted muscle wasting. Wound care re-evaluated the patient on 10/05/18 for skin break down over the flexor surfaces over the knee. New recommendations were placed. Patient has dressings over the sites. Patient's midodrine increased to 10mg PO TID to increase blood pressure Patient noted to have poor prognosis though she has survived many things during her hospitalization. Her who remains in high spirits hopes that she will recover and has been persistently at bedside every single day since being hospitalized in July. Today, patient has less lip smacking and appeared to be mouthing words. She would look at you with intent as if trying to engage in a conversation. Patient is pending chest tube placement given recurrent pleural effusion; pulm will attempt tomorrow 10/19/18.
[2018-10-18] MEDS: Pantoprazole 40 mg Susp UD GT SCH ×2 (10:55→21:15)
[2018-10-18] MEDS: Multiple Vitamins Tab PEG SCH (10:55)
[2018-10-18] MEDS: Lactobacillus Acidophilus 500 MU Cap GT SCH ×2 (10:55→18:20)
[2018-10-18] MEDS: Modafinil 50 MG TAB PO SCH (10:56)
[2018-10-18] MEDS: Vitamins A & D Oint UD Foilpak TOP SCH ×2 (10:59→18:16)
--- NOTE | 2018-10-18 16:52 | CP.PCM.PN ---
Subjective - Date & Time of Evaluation Date of Evaluation: 10/18/18 Time of Evaluation: 08:00 - Subjective Subjective: afeb events noted on vent via trach in NAD Objective - Vital Signs/Intake and Output Vital Signs (last 24 hours): Temp Pulse Resp BP Pulse Ox 98.6 F 82 18 119/65 100 10/18/18 12:00 10/18/18 12:00 10/18/18 12:00 10/18/18 11:52 10/18/18 12:00 Intake and Output: 10/18/18 10/18/18 06:59 18:59 Intake Total 580 Output Total 400 Balance 180 - Medications Medications: Current Medications Acetylcysteine (Acetylcysteine 20%) 4 ml INH RQ4 [facility] Last Admin: 10/18/18 11:30 Dose: Not Given Ascorbic Acid (Vitamin C 500 Mg Tab) 1,000 mg NG DAILY [facility] Last Admin: 10/18/18 10:55 Dose: 1,000 mg Aspirin (Aspirin Chewable) 81 mg GT DAILY [facility] Last Admin: 10/18/18 10:54 Dose: 81 mg Dextrose (Dextrose 50% Inj) 0 ml IVP .STAT PRN; Protocol PRN Reason: Hypoglycemia Protocol Dextrose (Glutose 15) 0 gm PO .ONCE PRN; Protocol PRN Reason: Hypoglycemia Protocol Glucagon (Glucagen Diagnostic Kit) 0 mg IM .STAT PRN; Protocol PRN Reason: Hypoglycemia Protocol Insulin Aspart (Novolog) 0 unit SC Q12H [facility]; Protocol Last Admin: 10/18/18 13:38 Dose: 2 u Lactobacillus Acidophilus (Bacid Acidophilus) 1 cap GT BID [facility] Last Admin: 10/18/18 10:55 Dose: 1 cap Methimazole (Tapazole) 20 mg PO Q8 [facility] Last Admin: 10/18/18 14:00 Dose: 20 mg Midodrine (Proamatine) 10 mg PO TID [facility] Last Admin: 10/18/18 13:38 Dose: 10 mg Modafinil (Provigil) 50 mg PO DAILY [facility] Last Admin: 10/18/18 10:56 Dose: 50 mg Multivitamins (Hexavitamin) 1 tab PEG DAILY [facility] Last Admin: 10/18/18 10:55 Dose: 1 tab Pantoprazole Sodium (Protonix Susp) 40 mg GT Q12H [facility] Last Admin: 10/18/18 10:55 Dose: 40 mg Tamsulosin HCl (Flomax) 0.4 mg PEG DAILY [facility] Last Admin: 10/18/18 10:55 Dose: 0.4 mg Vitamin A (Vitamin A & D Oint Ud Foilpak) 0.5 ea TOP BID [facility] Last Admin: 10/18/18 10:59 Dose: 0.5 ea - Labs Labs: 10/17/18 06:05 10/17/18 06:05 PT 13.2 SECONDS (9.7-12.2) H 10/18/18 05:47 INR 1.2 10/18/18 05:47 APTT 23 SECONDS (21-34) 10/02/18 06:10 - Constitutional Appears: Non-toxic, Chronically Ill - Head Exam Head Exam: NORMOCEPHALIC - Eye Exam Eye Exam: absent: Scleral icterus - ENT Exam ENT Exam: Mucous Membranes Dry - Neck Exam Neck Exam: absent: Lymphadenopathy - Respiratory Exam Respiratory Exam: Decreased Breath Sounds - Cardiovascular Exam Cardiovascular Exam: REGULAR RHYTHM - GI/Abdominal Exam GI & Abdominal Exam: Distended, Soft - Rectal Exam Rectal Exam: Deferred Assessment and Plan (1) NEHA (acute kidney injury) Status: Acute (2) Acute renal failure Status: Acute (3) Acute respiratory failure Status: Acute (4) Aspiration pneumonia Status: Acute (5) Septic shock Status: Acute (6) Urinary tract infection Status: Acute (7) Diabetes mellitus Status: Chronic (8) Anoxic brain damage Status: Acute - Assessment and Plan (Free Text) Assessment: for possible chest tube placement
[2018-10-19] MEDS: Acetylcysteine 20% Inhal Soln (4ml) INH SCH ×6 (00:25→23:53)
--- NOTE | 2018-10-19 07:30 | CP.PCM.PN ---
<Elijah Weinberg - Last Filed: 10/19/18 11:19> Subjective - Date & Time of Evaluation Date of Evaluation: 10/19/18 Time of Evaluation: 10:41 - Subjective Subjective: PGY-[address] Leahy Patient seen and examined at bedside. No acute events overnight. Vitals stable on monitor on exam today, O2 sat was at 100%. was at bedside told me that he thinks she is trying to mouth words and that he knows she can hear him talking. ROS unable to be obtained. Objective - Vital Signs/Intake and Output Vital Signs (last 24 hours): Temp Pulse Resp BP Pulse Ox 98.6 F 88 16 101/56 L 100 10/19/18 04:00 10/19/18 04:28 10/19/18 04:28 10/19/18 04:28 10/19/18 04:28 Intake and Output: 10/19/18 10/19/18 06:59 18:59 Intake Total 400 Output Total 300 Balance 100 - Medications Medications: Current Medications Acetylcysteine (Acetylcysteine 20%) 4 ml INH RQ4 [facility] Last Admin: 10/19/18 03:30 Dose: Not Given Ascorbic Acid (Vitamin C 500 Mg Tab) 1,000 mg NG DAILY [facility] Last Admin: 10/18/18 10:55 Dose: 1,000 mg Aspirin (Aspirin Chewable) 81 mg GT DAILY [facility] Last Admin: 10/18/18 10:54 Dose: 81 mg Dextrose (Dextrose 50% Inj) 0 ml IVP .STAT PRN; Protocol PRN Reason: Hypoglycemia Protocol Dextrose (Glutose 15) 0 gm PO .ONCE PRN; Protocol PRN Reason: Hypoglycemia Protocol Glucagon (Glucagen Diagnostic Kit) 0 mg IM .STAT PRN; Protocol PRN Reason: Hypoglycemia Protocol Insulin Aspart (Novolog) 0 unit SC Q12H [facility]; Protocol Last Admin: 10/19/18 00:00 Dose: Not Given Lactobacillus Acidophilus (Bacid Acidophilus) 1 cap GT BID [facility] Last Admin: 10/18/18 18:20 Dose: 1 cap Methimazole (Tapazole) 20 mg PO Q8 [facility] Last Admin: 10/19/18 05:49 Dose: 20 mg Midodrine (Proamatine) 10 mg PO TID [facility] Last Admin: 10/18/18 18:16 Dose: 10 mg Modafinil (Provigil) 50 mg PO DAILY [facility] Last Admin: 10/18/18 10:56 Dose: 50 mg Multivitamins (Hexavitamin) 1 tab PEG DAILY [facility] Last Admin: 10/18/18 10:55 Dose: 1 tab Pantoprazole Sodium (Protonix Susp) 40 mg GT Q12H [facility] Last Admin: 10/18/18 21:15 Dose: 40 mg Tamsulosin HCl (Flomax) 0.4 mg PEG DAILY [facility] Last Admin: 10/18/18 10:55 Dose: 0.4 mg Vitamin A (Vitamin A & D Oint Ud Foilpak) 0.5 ea TOP BID [facility] Last Admin: 10/18/18 18:16 Dose: 0.5 ea - Labs Labs: 10/17/18 06:05 10/17/18 06:05 PT 13.2 SECONDS (9.7-12.2) H 10/18/18 05:47 INR 1.2 10/18/18 05:47 APTT 23 SECONDS (21-34) 10/02/18 06:10 - Constitutional Appears: No Acute Distress - Head Exam Head Exam: ATRAUMATIC, NORMOCEPHALIC - Eye Exam Eye Exam: EOMI - ENT Exam ENT Exam: Mucous Membranes Moist - Neck Exam Additional comments: trach in place - Respiratory Exam Respiratory Exam: Decreased Breath Sounds. absent: Rhonchi, Wheezes Additional comments: on vent - Cardiovascular Exam Cardiovascular Exam: REGULAR RHYTHM, +S1, +S2 - GI/Abdominal Exam GI & Abdominal Exam: Soft, Normal Bowel Sounds. absent: Tenderness - Extremities Exam Extremities Exam: absent: Pedal Edema, Tenderness - Neurological Exam Neurological Exam: Awake. absent: Alert, Oriented x3 - Psychiatric Exam Psychiatric exam: Flat Affect - Skin Skin Exam: Dry, Intact Assessment and Plan - Assessment and Plan (Free Text) Assessment: Recurrent Pleural Effusions -Stable, Afebrile, Off Abx -Patient is s/p right thoracentesis, done 10/13/18. As per report, 1000cc of clear fluid were aspirated -CXR on 10/13/18 showed Interval significant improvement in right pleural effusion versus pulmonary edema. No pneumothorax. Worsening left pleural effusion versus pulmonary edema and redemonstration of loculated effusion along the left lateral chest wall. Stable position of the tracheostomy tube (see full report) -As patient keeps developing pleural effusions, we will need to discuss with Dr Lozada if patient will benefit from pigtail catheter -Continue Duonebs Q4H [facility] with mucomist -Infectious disease, Dr Brock on consult, help appreciated -Imaging: - Chest XR 10/01: Interval development of pleural effusions with loculated component along the right lateral chest wall. Moderate pulmonary venous congestion. Underlying pulmonary edema especially in the right lung is also a consideration. Follow up after medical management is recommended to ensure complete resolution. - Chest XR 10/04: Potential pulmonary vascular congestion vs infiltrates with possible trace left pleural effusion. Improved from 10/02 - Chest XR 10/05: Showing increased pulmonary vascular congestion compared to 10/04 - Chest XR 10/09: showing significant congestion - CXR 10/10: Less dense consolidation right lung base-improved aeration/less p assive compressive atelectasis inferred and/or partial clearing of some right pleural fluid. No pneumothorax seen. Extensive bilateral pleural effusions still persist. Less now on the right than before. - CXR 10/17 - Worsening pleural effusions bilaterally. Significant pleural effusion on the left. - Continue to assess for possible chest tube placement. Again, O2 sat was 100% on exam today and lungs did sound relatively clear. Consider repeat CXR. VRE + Urine -Hernandes placed with CBI -Afebrile sice 10/14 (blood cultures repeated) -Urine Cx 09/30 +VRE -Blood Cx 10/14 show no growth x 5 days -Tylenol prn fever Hypotension - Monitor albumin, administer prn doses - Midodrine increased to 10 mg PO TID Hyperthyroidism -Methimazole 20 mg PO Q8 Prophylactic measure * Protonix 40mg GT BID * Lactobacillus 1 cap PO BID * MVI 1x/day * Vitamin C 1,000 NG 1x/day * s/p Trach and Peg * SCD on Right and contraindicated on Left due to DVT * Peg feedings * Pulmcar 40cc/hr * patient had frequent BMs on prior formula; no diarrhea; we have spoken with dietary to change it on 08/19/18 * PICC Line d/c due to coiling * Patient has midline access * Note: speak to patient in [place] to assess neurologic status-->she does follow sometimes * s/p bronchoscopy 08/23 * s/p IVC filter 08/23 * s/p LP 09/15 * s/p right chest tube insertion 09/06; removed 09/15 * patient is FULL CODE * Provigil 50mg PO daily started to promote wakefulness during the day. * Social work note (08/09/18): patient is undocumented, has not health insurance, dc planning will be at home with During this prolonged hospital stay, patient treated for the following medical problems. See prior notes for details. 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 Low TSH, and Free T4 Thyroid Storm -Anemia Likely Secondary to Chronic Diseases Dysfunctional uterine bleeding -Vitamin D deficiency -Thrombocytopenia -13 mm Left Adrenal Nodule -Hypernatremia -Deconditioning -Tardive Dyskinesa Disposition: Continue aggressive PT/OT. Possible chest tube placement for worsening pleural effusions - significant pleural effusion developing on the left. Plan discussed with Dr. Armond Weinberg, PGY-1 <Saria Leahy V - Last Filed: 10/19/18 18:57> Objective - Vital Signs/Intake and Output Vital Signs (last 24 hours): Temp Pulse Resp BP Pulse Ox 99.3 F 86 15 103/57 L 100 10/19/18 07:34 10/19/18 08:00 10/19/18 08:00 10/19/18 07:52 10/19/18 08:00 Intake and Output: 10/19/18 10/19/18 06:59 18:59 Intake Total 400 10 Output Total 300 Balance 100 10 - Medications Medications: Current Medications Acetylcysteine (Acetylcysteine 20%) 4 ml INH RQ4 [facility] Last Admin: 10/19/18 03:30 Dose: Not Given Ascorbic Acid (Vitamin C 500 Mg Tab) 1,000 mg NG DAILY [facility] Last Admin: 10/19/18 09:29 Dose: 1,000 mg Aspirin (Aspirin Chewable) 81 mg GT DAILY [facility] Last Admin: 10/19/18 09:29 Dose: 81 mg Dextrose (Dextrose 50% Inj) 0 ml IVP .STAT PRN; Protocol PRN Reason: Hypoglycemia Protocol Dextrose (Glutose 15) 0 gm PO .ONCE PRN; Protocol PRN Reason: Hypoglycemia Protocol Glucagon (Glucagen Diagnostic Kit) 0 mg IM .STAT PRN; Protocol PRN Reason: Hypoglycemia Protocol Insulin Aspart (Novolog) 0 unit SC Q12H [facility]; Protocol Last Admin: 10/19/18 00:00 Dose: Not Given Lactobacillus Acidophilus (Bacid Acidophilus) 1 cap GT BID [facility] Last Admin: 10/19/18 09:28 Dose: 1 cap Methimazole (Tapazole) 20 mg PO Q8 [facility] Last Admin: 10/19/18 05:49 Dose: 20 mg Midodrine (Proamatine) 10 mg PO TID [facility] Last Admin: 10/19/18 09:29 Dose: 10 mg Modafinil (Provigil) 50 mg PO DAILY [facility] Last Admin: 10/18/18 10:56 Dose: 50 mg Multivitamins (Hexavitamin) 1 tab PEG DAILY [facility] Last Admin: 10/19/18 09:28 Dose: 1 tab Pantoprazole Sodium (Protonix Susp) 40 mg GT Q12H [facility] Last Admin: 10/19/18 09:29 Dose: 40 mg Tamsulosin HCl (Flomax) 0.4 mg PEG DAILY [facility] Last Admin: 10/19/18 09:29 Dose: 0.4 mg Vitamin A (Vitamin A & D Oint Ud Foilpak) 0.5 ea TOP BID [facility] Last Admin: 10/19/18 09:29 Dose: 0.5 ea - Labs Labs: 10/17/18 06:05 10/17/18 06:05 PT 13.2 SECONDS (9.7-12.2) H 10/18/18 05:47 INR 1.2 10/18/18 05:47 APTT 23 SECONDS (21-34) 10/02/18 06:10 Assessment and Plan (1) Septic shock Status: Acute (2) Acute respiratory failure Status: Acute (3) Urinary tract infection Status: Acute (4) Acute renal failure Status: Acute (5) Aspiration pneumonia Status: Acute (6) Diabetes mellitus Status: Chronic (7) Ventricular arrhythmia Status: Acute (8) Hyperthyroidism Status: Acute (9) Anemia Status: Acute (10) Anoxic brain injury Status: Acute (11) Prophylactic measure Status: Acute Attending/Attestation - Attestation I have personally seen and examined this patient.: Yes I have fully participated in the care of the patient.: Yes I have reviewed all pertinent clinical information, including history, physical exam and plan: Yes Notes (Text): Patient seen, examined, and case discussed with day-time resident. This is a 53-year-old female with a prolonged hospitalization for treatment for septic shock complicated by both pneumonia and urinary tract infections, anoxic encephalopathy likely secondary to 2 cardiac arrest during hospitalization, hyperthyroidism which has been controlled on methimazole, shock liver which is now recovered, history of apical thrombus which is currently being treated with aspirin and is not on anticoagulation secondary to worsening heavy vaginal bleeding which required multiple blood transfusions during hospitalization, history of left lower extremity DVT which falling 1 month of anticoagulation has radiographically disappeared on repeat ultrasound and has now an IVC filter, as well as diabetes, vitamin D deficiency. Patient recently had a chest x-ray completed on Oct 13 wherein she went through a thoracentesis for pleural effusion. We have repeated chest xray today which noted worsening of pleural effusions; I have discussed with Dr. Lozada, patient will likely need pigtail catheter given the reaccumulation of fluid. Patient is noted to be incontinent of the urine has been straight cath when she does retain. Patient is on [address] Hernandes since 10/05/17 evening with CBI to clean out urine. Patient is off antibiotic since 10/05/17. Blood cultures 10/14/18 which show no growth for 3 days X2. She had a fever on 10/14/18 which was 101; has remained afebrile since. Also note patient did underwent a lumbar puncture on September 15 HSV-2 IgM antibody, VDRL, and the West Nile are still pending. Physical therapy had signed off on September 24 because patient is not a candidate because she cannot follow directions. Patient would be an ideal candidate for LTAC however she does not have insurance, her is not from this [place] which limits her ability for services. The other thing is patient still remains trach to vent as well. Also to note patient does have sequential compressive stocking since the follow- up venous Doppler which did indicate that the clot had cleared.Patient does have noted muscle wasting. Wound care re-evaluated the patient on 10/05/18 for skin break down over the flexor surfaces over the knee. New recommendations were p laced. Patient has dressings over the sites. Patient's midodrine increased to 10mg PO TID to increase blood pressure recently. Patient noted to have poor prognosis though she has survived many things during her hospitalization. Her who remains in high spirits hopes that she will recover and has been persistently at bedside every single day since being hospitalized in July. Today, patient has less lip smacking and appeared to be mouthing words. She would look at you with intent as if trying to engage in a conversation but it is difficult to say. Patient is pending chest tube placement given recurrent pleural effusion. Discussed with pulm, recommend for IR for placement for chest tube insertion for recurrent pleural effusion. Resident has left a message with Dr. Chavis this evening.
[2018-10-19] MEDS: Multiple Vitamins Tab PEG SCH (09:28)
[2018-10-19] MEDS: Lactobacillus Acidophilus 500 MU Cap GT SCH ×2 (09:28→17:06)
[2018-10-19] MEDS: Vitamins A & D Oint UD Foilpak TOP SCH ×2 (09:29→17:06)
[2018-10-19] MEDS: Pantoprazole 40 mg Susp UD GT SCH ×2 (09:29→21:04)
[2018-10-19] MEDS: Modafinil 50 MG TAB PO SCH (10:09)
[2018-10-19] MEDS: (Novolog) Insulin Aspart, Recombinant 100 u/ml 10 ml vial SC SCH ×2 (12:21)
--- NOTE | 2018-10-19 19:10 | CP.PCM.PN ---
Subjective - Date & Time of Evaluation Date of Evaluation: 10/19/18 Time of Evaluation: 09:00 - Subjective Subjective: afeb on vent nad Objective - Vital Signs/Intake and Output Vital Signs (last 24 hours): Temp Pulse Resp BP Pulse Ox 98.8 F 79 25 H 98/52 L 100 10/19/18 16:00 10/19/18 16:00 10/19/18 16:00 10/19/18 15:52 10/19/18 16:00 Intake and Output: 10/19/18 10/20/18 18:59 06:59 Intake Total 650 Output Total 200 Balance 450 - Medications Medications: Current Medications Acetylcysteine (Acetylcysteine 20%) 4 ml INH RQ4 [facility] Last Admin: 10/19/18 13:59 Dose: Not Given Ascorbic Acid (Vitamin C 500 Mg Tab) 1,000 mg NG DAILY [facility] Last Admin: 10/19/18 09:29 Dose: 1,000 mg Aspirin (Aspirin Chewable) 81 mg GT DAILY [facility] Last Admin: 10/19/18 09:29 Dose: 81 mg Dextrose (Dextrose 50% Inj) 0 ml IVP .STAT PRN; Protocol PRN Reason: Hypoglycemia Protocol Dextrose (Glutose 15) 0 gm PO .ONCE PRN; Protocol PRN Reason: Hypoglycemia Protocol Glucagon (Glucagen Diagnostic Kit) 0 mg IM .STAT PRN; Protocol PRN Reason: Hypoglycemia Protocol Insulin Aspart (Novolog) 0 unit SC Q12H [facility]; Protocol Last Admin: 10/19/18 12:21 Dose: Not Given Lactobacillus Acidophilus (Bacid Acidophilus) 1 cap GT BID [facility] Last Admin: 10/19/18 17:06 Dose: 1 cap Methimazole (Tapazole) 20 mg PO Q8 [facility] Last Admin: 10/19/18 13:59 Dose: 20 mg Midodrine (Proamatine) 10 mg PO TID [facility] Last Admin: 10/19/18 17:06 Dose: 10 mg Modafinil (Provigil) 50 mg PO DAILY [facility] Last Admin: 10/19/18 10:09 Dose: 50 mg Multivitamins (Hexavitamin) 1 tab PEG DAILY [facility] Last Admin: 10/19/18 09:28 Dose: 1 tab Pantoprazole Sodium (Protonix Susp) 40 mg GT Q12H [facility] Last Admin: 10/19/18 09:29 Dose: 40 mg Tamsulosin HCl (Flomax) 0.4 mg PEG DAILY [facility] Last Admin: 10/19/18 09:29 Dose: 0.4 mg Vitamin A (Vitamin A & D Oint Ud Foilpak) 0.5 ea TOP BID [facility] Last Admin: 10/19/18 17:06 Dose: 0.5 ea - Labs Labs: 10/17/18 06:05 10/17/18 06:05 PT 13.2 SECONDS (9.7-12.2) H 10/18/18 05:47 INR 1.2 10/18/18 05:47 APTT 23 SECONDS (21-34) 10/02/18 06:10 - Constitutional Appears: Chronically Ill - Head Exam Head Exam: NORMOCEPHALIC - Eye Exam Eye Exam: absent: Scleral icterus - ENT Exam ENT Exam: Mucous Membranes Dry - Neck Exam Neck Exam: absent: Lymphadenopathy - Respiratory Exam Respiratory Exam: Decreased Breath Sounds - Cardiovascular Exam Cardiovascular Exam: REGULAR RHYTHM - GI/Abdominal Exam GI & Abdominal Exam: Distended - Rectal Exam Rectal Exam: Deferred - Exam Exam: NORMAL INSPECTION - Extremities Exam Extremities Exam: Pedal Edema - Back Exam Back Exam: absent: CVA tenderness (L), CVA tenderness (R) - Neurological Exam Neurological Exam: Altered Assessment and Plan (1) NEHA (acute kidney injury) Status: Acute (2) Acute renal failure Status: Acute (3) Acute respiratory failure Status: Acute (4) Aspiration pneumonia Status: Acute (5) Septic shock Status: Acute (6) Urinary tract infection Status: Acute (7) Diabetes mellitus Status: Chronic (8) Anoxic brain damage Status: Acute
[2018-10-20] MEDS: (Novolog) Insulin Aspart, Recombinant 100 u/ml 10 ml vial SC SCH ×2 (00:15→12:00)
[2018-10-20 06:28] LABS: HEMOGLOBIN 7.7 g/dL (11.0-16.0); MEAN CELL VOLUME 92.1 fL (81.0-99.0); MEAN CORPUSCULAR HGB CONC 32.6 g/dL (33.0-37.0); MEAN PLATELET VOLUME 8.3 fL (7.2-11.7); RBC 2.57 Mil/uL (3.80-5.20)
[2018-10-20 06:49] LABS: ALB/GLOB RATIO 0.9 (1.0-2.1); ALBUMIN 2.6 g/dL (3.5-5.0); ALT/SGPT 30 U/L (9-52); AST/SGOT 27 U/L (14-36); BLOOD UREA NITROGEN 36 mg/dL (7-17); CALCIUM 7.9 mg/dl (8.6-10.4); GFR NON-AFRICAN AMERICAN 58
[2018-10-20] MEDS: Modafinil 50 MG TAB PO SCH (09:41)
[2018-10-20] MEDS: Vitamins A & D Oint UD Foilpak TOP SCH ×2 (09:41→17:41)
[2018-10-20] MEDS: Lactobacillus Acidophilus 500 MU Cap GT SCH ×2 (09:42→17:41)
[2018-10-20] MEDS: Multiple Vitamins Tab PEG SCH (09:42)
[2018-10-20] MEDS: Pantoprazole 40 mg Susp UD GT SCH ×2 (09:42→22:00)
[2018-10-20] MEDS ORDERED: Lidocaine 1% 20 MG/2 ML PF AMP ONE (10:07)
--- NOTE | 2018-10-20 10:22 | CP.PCM.PN ---
<Elijah Weinberg - Last Filed: 10/20/18 13:42> Subjective - Date & Time of Evaluation Date of Evaluation: 10/20/18 Time of Evaluation: 13:46 - Subjective Subjective: PGY-[address] Leahy Patient seen and examined at bedside. No acute events overnight. S/p thoracentesis today, patient tolerated well. Awaiting follow up CXR. ROS unable to be obtained. Objective - Vital Signs/Intake and Output Vital Signs (last 24 hours): Temp Pulse Resp BP Pulse Ox 96.7 F L 92 H 19 118/60 98 10/20/18 08:00 10/20/18 09:17 10/20/18 09:17 10/20/18 09:17 10/20/18 09:17 Intake and Output: 10/20/18 10/20/18 06:59 18:59 Intake Total 490 10 Output Total 300 Balance 190 10 - Medications Medications: Current Medications Acetylcysteine (Acetylcysteine 20%) 4 ml INH RQ4 [facility] Last Admin: 10/19/18 23:53 Dose: Not Given Ascorbic Acid (Vitamin C 500 Mg Tab) 1,000 mg NG DAILY [facility] Last Admin: 10/20/18 09:42 Dose: 1,000 mg Aspirin (Aspirin Chewable) 81 mg GT DAILY [facility] Last Admin: 10/20/18 09:42 Dose: 81 mg Dextrose (Dextrose 50% Inj) 0 ml IVP .STAT PRN; Protocol PRN Reason: Hypoglycemia Protocol Dextrose (Glutose 15) 0 gm PO .ONCE PRN; Protocol PRN Reason: Hypoglycemia Protocol Glucagon (Glucagen Diagnostic Kit) 0 mg IM .STAT PRN; Protocol PRN Reason: Hypoglycemia Protocol Insulin Aspart (Novolog) 0 unit SC Q12H [facility]; Protocol Last Admin: 10/20/18 00:15 Dose: Not Given Lactobacillus Acidophilus (Bacid Acidophilus) 1 cap GT BID [facility] Last Admin: 10/20/18 09:42 Dose: 1 cap Methimazole (Tapazole) 20 mg PO Q8 [facility] Last Admin: 10/20/18 05:07 Dose: 20 mg Midodrine (Proamatine) 10 mg PO TID [facility] Last Admin: 10/20/18 09:42 Dose: 10 mg Modafinil (Provigil) 50 mg PO DAILY [facility] Last Admin: 10/20/18 09:41 Dose: 50 mg Multivitamins (Hexavitamin) 1 tab PEG DAILY [facility] Last Admin: 10/20/18 09:42 Dose: 1 tab Pantoprazole Sodium (Protonix Susp) 40 mg GT Q12H [facility] Last Admin: 10/20/18 09:42 Dose: 40 mg Tamsulosin HCl (Flomax) 0.4 mg PEG DAILY [facility] Last Admin: 10/20/18 09:42 Dose: 0.4 mg Vitamin A (Vitamin A & D Oint Ud Foilpak) 0.5 ea TOP BID [facility] Last Admin: 10/20/18 09:41 Dose: 0.5 ea - Labs Labs: 10/20/18 06:24 10/20/18 06:21 PT 13.2 SECONDS (9.7-12.2) H 10/18/18 05:47 INR 1.2 10/18/18 05:47 APTT 23 SECONDS (21-34) 10/02/18 06:10 - Constitutional Appears: Non-toxic, No Acute Distress - Head Exam Head Exam: ATRAUMATIC, NORMOCEPHALIC - Eye Exam Eye Exam: EOMI, Normal appearance - ENT Exam ENT Exam: Mucous Membranes Moist - Neck Exam Additional comments: trach in place - Respiratory Exam Respiratory Exam: Decreased Breath Sounds. absent: Rhonchi, Wheezes - Cardiovascular Exam Cardiovascular Exam: REGULAR RHYTHM, +S1, +S2 - GI/Abdominal Exam GI & Abdominal Exam: Soft, Normal Bowel Sounds. absent: Tenderness - Extremities Exam Extremities Exam: absent: Pedal Edema, Tenderness - Neurological Exam Neurological Exam: Awake. absent: Alert, Oriented x3 - Skin Skin Exam: Dry, Intact Assessment and Plan - Assessment and Plan (Free Text) Assessment: Recurrent Pleural Effusions -Stable, Afebrile, Off Abx -Patient is s/p right thoracentesis, done 10/13/18. As per report, 1000cc of clear fluid were aspirated -CXR on 10/13/18 showed Interval significant improvement in right pleural effusion versus pulmonary edema. No pneumothorax. Worsening left pleural effusion versus pulmonary edema and redemonstration of loculated effusion along the left lateral chest wall. Stable position of the tracheostomy tube (see full report) -As patient keeps developing pleural effusions, we will need to discuss with Dr Lozada if patient will benefit from pigtail catheter -Continue Duonebs Q4H [facility] with mucomist -Infectious disease, Dr Brock on consult, help appreciated -Imaging: - Chest XR 10/01: Interval development of pleural effusions with loculated com ponent along the right lateral chest wall. Moderate pulmonary venous congestion. Underlying pulmonary edema especially in the right lung is also a consideration. Follow up after medical management is recommended to ensure complete resolution. - Chest XR 10/04: Potential pulmonary vascular congestion vs infiltrates with possible trace left pleural effusion. Improved from 10/02 - Chest XR 10/05: Showing increased pulmonary vascular congestion compared to 10/04 - Chest XR 10/09: showing significant congestion - CXR 10/10: Less dense consolidation right lung base-improved aeration/less passive compressive atelectasis inferred and/or partial clearing of some right pleural fluid. No pneumothorax seen. Extensive bilateral pleural effusions still persist. Less now on the right than before. - CXR 10/17 - Worsening pleural effusions bilaterally. Significant pleural effusion on the left. - S/p thoracentesis today with IR, without pigtail placement. F/u chest portable. VRE + Urine -Hernandes placed with CBI -Afebrile sice 10/14 (blood cultures repeated) -Urine Cx 09/30 +VRE -Blood Cx 10/14 show no growth x 5 days -Tylenol prn fever Hypotension - Monitor albumin, administer prn doses - Midodrine increased to 10 mg PO TID Hyperthyroidism -Methimazole 20 mg PO Q8 Prophylactic measure * Protonix 40mg GT BID * Lactobacillus 1 cap PO BID * MVI 1x/day * Vitamin C 1,000 NG 1x/day * s/p Trach and Peg * SCD on Right and contraindicated on Left due to DVT * Peg feedings * Pulmcar 40cc/hr * patient had frequent BMs on prior formula; no diarrhea; we have spoken with dietary to change it on 08/19/18 * PICC Line d/c due to coiling * Patient has midline access * Note: speak to patient in [place] to assess neurologic status-->she does follow sometimes * s/p bronchoscopy 08/23 * s/p IVC filter 08/23 * s/p LP 09/15 * s/p right chest tube insertion 09/06; removed 09/15 * patient is FULL CODE * Provigil 50mg PO daily started to promote wakefulness during the day. * Social work note (08/09/18): patient is undocumented, has not health insurance, dc planning will be at home with During this prolonged hospital stay, patient treated for the following medical problems. See prior notes for details. 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 Low TSH, and Free T4 Thyroid Storm -Anemia Likely Secondary to Chronic Diseases Dysfunctional uterine bleeding -Vitamin D deficiency -Thrombocytopenia -13 mm Left Adrenal Nodule -Hypernatremia -Deconditioning -Tardive Dyskinesa Disposition: Continue aggressive PT/OT. Possible chest tube placement for worsening pleural effusions - significant pleural effusion developing on the le ft. Plan discussed with Dr. Armond Weinberg, PGY-1 <Saira Leahy V - Last Filed: 10/21/18 14:10> Objective - Vital Signs/Intake and Output Vital Signs (last 24 hours): Temp Pulse Resp BP Pulse Ox 98.8 F 78 19 118/97 H 100 10/21/18 14:00 10/21/18 14:00 10/21/18 14:00 10/21/18 14:00 10/21/18 10:00 Intake and Output: 10/21/18 10/21/18 06:59 18:59 Intake Total 650 10 Output Total 250 Balance 400 10 - Medications Medications: Current Medications Acetylcysteine (Acetylcysteine 20%) 4 ml INH RQ4 [facility] Last Admin: 10/21/18 13:34 Dose: Not Given Ascorbic Acid (Vitamin C 500 Mg Tab) 1,000 mg NG DAILY [facility] Last Admin: 10/21/18 10:19 Dose: 1,000 mg Aspirin (Aspirin Chewable) 81 mg GT DAILY [facility] Last Admin: 10/21/18 10:19 Dose: 81 mg Dextrose (Dextrose 50% Inj) 0 ml IVP .STAT PRN; Protocol PRN Reason: Hypoglycemia Protocol Dextrose (Glutose 15) 0 gm PO .ONCE PRN; Protocol PRN Reason: Hypoglycemia Protocol Glucagon (Glucagen Diagnostic Kit) 0 mg IM .STAT PRN; Protocol PRN Reason: Hypoglycemia Protocol Insulin Aspart (Novolog) 0 unit SC Q12H [facility]; Protocol Last Admin: 10/21/18 12:30 Dose: 2 u Lactobacillus Acidophilus (Bacid Acidophilus) 1 cap GT BID [facility] Last Admin: 10/21/18 10:19 Dose: 1 cap Methimazole (Tapazole) 20 mg PO Q8 [facility] Last Admin: 10/21/18 13:34 Dose: 20 mg Midodrine (Proamatine) 10 mg PO TID [facility] Last Admin: 10/21/18 13:34 Dose: 10 mg Modafinil (Provigil) 50 mg PO DAILY [facility] Last Admin: 10/21/18 10:19 Dose: 50 mg Multivitamins (Hexavitamin) 1 tab PEG DAILY [facility] Last Admin: 10/21/18 10:19 Dose: 1 tab Pantoprazole Sodium (Protonix Susp) 40 mg GT Q12H [facility] Last Admin: 10/21/18 10:27 Dose: 40 mg Tamsulosin HCl (Flomax) 0.4 mg PEG DAILY [facility] Last Admin: 10/21/18 10:19 Dose: 0.4 mg Vitamin A (Vitamin A & D Oint Ud Foilpak) 0.5 ea TOP BID [facility] Last Admin: 10/21/18 10:24 Dose: 0.5 ea - Labs Labs: 10/20/18 06:24 10/20/18 06:21 PT 13.2 SECONDS (9.7-12.2) H 10/18/18 05:47 INR 1.2 10/18/18 05:47 APTT 23 SECONDS (21-34) 10/02/18 06:10 Assessment and Plan (1) Septic shock Status: Acute (2) Acute respiratory failure Status: Acute (3) Urinary tract infection Status: Acute (4) Acute renal failure Status: Acute (5) Aspiration pneumonia Status: Acute (6) Diabetes mellitus Status: Chronic (7) Ventricular arrhythmia Status: Acute (8) Hyperthyroidism Status: Acute (9) Anemia Status: Acute (10) Anoxic brain injury Status: Acute (11) Prophylactic measure Status: Acute Attending/Attestation - Attestation I have personally seen and examined this patient.: Yes I have fully participated in the care of the patient.: Yes I have reviewed all pertinent clinical information, including history, physical exam and plan: Yes Notes (Text): This is late computer entry for 10/20/18. Patient seen, examined, and case discussed with day-time resident. This is a 53-year-old female with a prolonged hospitalization for treatment for septic shock complicated by both pneumonia and urinary tract infections, anoxic encephalopathy likely secondary to 2 cardiac arrest during hospitalization, hyp erthyroidism which has been controlled on methimazole, shock liver which is now recovered, history of apical thrombus which is currently being treated with aspirin and is not on anticoagulation secondary to worsening heavy vaginal bleeding which required multiple blood transfusions during hospitalization, history of left lower extremity DVT which falling 1 month of anticoagulation has radiographically disappeared on repeat ultrasound and has now an IVC filter, as well as diabetes, vitamin D deficiency. Patient recently had a chest x-ray completed on Oct 13 wherein she went through a thoracentesis for pleural effusion. We have repeated chest xray recently.I have discussed with Dr. Lozada, patient will likely need pigtail catheter given the reaccumulation of fluid. Patient is noted to be incontinent of the urine has been straight cath when she does retain. Patient was on [address] [place]and[place] since 10/05/17 evening with CBI to clean out urine which she is off. Patient is off antibiotic since 10/05/17. Blood cultures 10/14/18 which show no growth for 3 days X2. She had a fever on 10/14/18 which was 101; has remained afebrile since. Also note patient did underwent a lumbar puncture on September 15 HSV-2 IgM antibody, VDRL, and the West Nile are still pending. Physical therapy had signed off on September 24 because patient is not a candidate because she cannot follow directions. Patient would be an ideal candidate for LTAC however she does not have insurance, her is not from this country which limits her ability for services. The other thing is patient still remains trach to vent as well. Also to note patient does have sequential compressive stocking since the follow- up venous Doppler which did indicate that the clot had cleared.Patient does have noted muscle wasting. Wound care re-evaluated the patient on 10/05/18 for skin break down over the flexor surfaces over the knee. New recommendations were placed. Patient has dressings over the sites. Patient's midodrine increased to 10mg PO TID to increase blood pressure recently. Patient noted to have poor prognosis though she has survived many things during her hospitalization. Her who remains in high spirits hopes that she will recover and has been persistently at bedside every single day since being hospitalized in July. Today, patient has less lip smacking and appeared to be mouthing words. Patient underwent thoracentesis with IR 10/20/18 and 900 cc removed but no pig tail catheter was inserted. Will follow-up chest xray.
--- NOTE | 2018-10-20 10:30 | US ---
Procedure: Ultrasound guided thoracentesis. Clinical History: Right-sided pleural effusion. Technique: The relative risks and indications for the procedure were explained to the patient and informed written consent obtained. Sonography of the right chest was performed in a an upright position. This revealed a moderate to large amount of pleural fluid. A puncture site was selected in the posterior lateral aspect of the right chest and the area was prepped and draped in the usual sterile fashion. 1% lidocaine was used to anesthetize the skin and soft tissues. A 5 German centesis catheter was trochared into the right pleural cavity approximately 1000 cc of brittany fluid aspirated. The patient tolerated the procedure well. Impression: Ultrasound-guided thoracentesis of the right pleural cavity. Approximately 1000 cc of brittany colored fluid was aspirated.
--- NOTE | 2018-10-20 12:54 | US ---
Limited right lung ultrasound History: Pleural effusion. Comparison: X-ray dated 10/17/2018 Technique: Real-time sonography was performed through the right hemithorax. Findings: Right pleural effusion was marked for chest tube to be performed. Impression: Right pleural effusion was marked for chest tube to be performed.
--- NOTE | 2018-10-20 14:33 | RAD ---
Date of service: 10/20/2018 HISTORY: Pleural effusion s/p thoracentesis COMPARISON: Comparison chest 10/17/2018 FINDINGS: Redemonstrated is in situ tracheostomy tube position. LUNGS: Left-sided effusion with left lower lobe atelectasis and infiltrate. Interval improvement of right-sided effusion right-sided atelectasis.. PLEURA: As above. No pneumothorax apparent. CARDIOVASCULAR: Heart size difficult to assess due to silhouetting left cardiac border. Mild aortic atherosclerotic calcification.. OSSEOUS STRUCTURES: No significant abnormalities. VISUALIZED UPPER ABDOMEN: Normal. OTHER FINDINGS: None. IMPRESSION: There is opacification left mid to lower lung field secondary to large left-sided effusion. Presumed left basilar atelectasis however infiltrate not excluded. Improved right-sided effusion and atelectasis
--- NOTE | 2018-10-20 14:33 | US ---
Date of service: 10/20/2018 PROCEDURE: HISTORY: RT PL EFF. THORA DONE BY ESTHER ENRIQUEZ COMPARISON: TECHNIQUE: FINDINGS: IMPRESSION: Examination / Procedure: Thoracentesis Indication: Effusion Interventional Radiologists: madonna Complications: None immediate. Technique: The procedure, risks, and alternative therapies were discussed in detail, and written informed consent was obtained. The patient was monitored by the interventional radiology nurse at all times. A timeout was performed to verify correct patient and procedure. The chest was prepped and draped in the usual sterile fashion. Initial ultrasound examination of the chest demonstrated a collection of pleural effusion . An ultrasound image was stored and sent to PACS. Soft tissues were anesthetized with 1% lidocaine. A skin geri was made. Under real time ultrasound guidance, a Yeuh needle was advanced into the effusion and 1.5 liters of serosanguineous fluid was drained from the peritoneal cavity. The patient tolerated the procedure well without immediate post procedural complication. Impression: 1. Successful placement thoracentesis. 2 successful drainage of 1.5 liters of effusion
--- NOTE | 2018-10-20 17:49 | CP.PCM.PN ---
Subjective - Date & Time of Evaluation Date of Evaluation: 10/20/18 Time of Evaluation: 08:00 - Subjective Subjective: S/p thoracentesis today, patient tolerated well. Objective - Vital Signs/Intake and Output Vital Signs (last 24 hours): Temp Pulse Resp BP Pulse Ox 98.6 F 83 21 106/54 L 100 10/20/18 16:48 10/20/18 16:00 10/20/18 16:00 10/20/18 13:07 10/20/18 16:48 Intake and Output: 10/20/18 10/20/18 06:59 18:59 Intake Total 490 290 Output Total 300 Balance 190 290 - Medications Medications: Current Medications Acetylcysteine (Acetylcysteine 20%) 4 ml INH RQ4 [facility] Last Admin: 10/19/18 23:53 Dose: Not Given Ascorbic Acid (Vitamin C 500 Mg Tab) 1,000 mg NG DAILY [facility] Last Admin: 10/20/18 09:42 Dose: 1,000 mg Aspirin (Aspirin Chewable) 81 mg GT DAILY [facility] Last Admin: 10/20/18 09:42 Dose: 81 mg Dextrose (Dextrose 50% Inj) 0 ml IVP .STAT PRN; Protocol PRN Reason: Hypoglycemia Protocol Dextrose (Glutose 15) 0 gm PO .ONCE PRN; Protocol PRN Reason: Hypoglycemia Protocol Glucagon (Glucagen Diagnostic Kit) 0 mg IM .STAT PRN; Protocol PRN Reason: Hypoglycemia Protocol Insulin Aspart (Novolog) 0 unit SC Q12H [facility]; Protocol Last Admin: 10/20/18 12:00 Dose: Not Given Lactobacillus Acidophilus (Bacid Acidophilus) 1 cap GT BID [facility] Last Admin: 10/20/18 17:41 Dose: 1 cap Methimazole (Tapazole) 20 mg PO Q8 [facility] Last Admin: 10/20/18 14:46 Dose: 20 mg Midodrine (Proamatine) 10 mg PO TID [facility] Last Admin: 10/20/18 17:42 Dose: 10 mg Modafinil (Provigil) 50 mg PO DAILY [facility] Last Admin: 10/20/18 09:41 Dose: 50 mg Multivitamins (Hexavitamin) 1 tab PEG DAILY [facility] Last Admin: 10/20/18 09:42 Dose: 1 tab Pantoprazole Sodium (Protonix Susp) 40 mg GT Q12H [facility] Last Admin: 10/20/18 09:42 Dose: 40 mg Tamsulosin HCl (Flomax) 0.4 mg PEG DAILY [facility] Last Admin: 10/20/18 09:42 Dose: 0.4 mg Vitamin A (Vitamin A & D Oint Ud Foilpak) 0.5 ea TOP BID [facility] Last Admin: 10/20/18 17:41 Dose: 0.5 ea - Labs Labs: 10/20/18 06:24 10/20/18 06:21 PT 13.2 SECONDS (9.7-12.2) H 10/18/18 05:47 INR 1.2 10/18/18 05:47 APTT 23 SECONDS (21-34) 10/02/18 06:10 - Constitutional Appears: Non-toxic, Chronically Ill - Head Exam Head Exam: NORMOCEPHALIC - Eye Exam Eye Exam: absent: Scleral icterus - ENT Exam ENT Exam: Mucous Membranes Dry - Neck Exam Neck Exam: absent: Thyromegaly - Respiratory Exam Respiratory Exam: Decreased Breath Sounds - Cardiovascular Exam Cardiovascular Exam: REGULAR RHYTHM - GI/Abdominal Exam GI & Abdominal Exam: Distended, Soft Assessment and Plan (1) NEHA (acute kidney injury) Status: Acute (2) Acute renal failure Status: Acute (3) Acute respiratory failure Status: Acute (4) Aspiration pneumonia Status: Acute (5) Septic shock Status: Acute (6) Urinary tract infection Status: Acute (7) Diabetes mellitus Status: Chronic (8) Anoxic brain damage Status: Acute - Assessment and Plan (Free Text) Assessment: S/p thoracentesis today, patient tolerated well.
--- NOTE | 2018-10-21 03:30 | CP.PCM.PN ---
<Krysten Ball - Last Filed: 10/21/18 03:26> Subjective - Date & Time of Evaluation Date of Evaluation: 10/21/18 Time of Evaluation: 03:26 - Subjective Subjective: Medicine Progress Note Patient seen and examined at bedside without family at bedside. Patient awake and making uncomprehensible noises. Due to pt conditions ROS unable to be obtained. Objective - Vital Signs/Intake and Output Vital Signs (last 24 hours): Temp Pulse Resp BP Pulse Ox 100.4 F H 92 H 21 110/60 100 10/21/18 01:00 10/21/18 01:00 10/21/18 01:00 10/21/18 01:00 10/21/18 01:00 Intake and Output: 10/20/18 10/21/18 18:59 06:59 Intake Total 600 230 Output Total 225 Balance 375 230 - Medications Medications: Current Medications Acetylcysteine (Acetylcysteine 20%) 4 ml INH RQ4 [facility] Last Admin: 10/19/18 23:53 Dose: Not Given Ascorbic Acid (Vitamin C 500 Mg Tab) 1,000 mg NG DAILY [facility] Last Admin: 10/20/18 09:42 Dose: 1,000 mg Aspirin (Aspirin Chewable) 81 mg GT DAILY [facility] Last Admin: 10/20/18 09:42 Dose: 81 mg Dextrose (Dextrose 50% Inj) 0 ml IVP .STAT PRN; Protocol PRN Reason: Hypoglycemia Protocol Dextrose (Glutose 15) 0 gm PO .ONCE PRN; Protocol PRN Reason: Hypoglycemia Protocol Glucagon (Glucagen Diagnostic Kit) 0 mg IM .STAT PRN; Protocol PRN Reason: Hypoglycemia Protocol Insulin Aspart (Novolog) 0 unit SC Q12H [facility]; Protocol Last Admin: 10/20/18 12:00 Dose: Not Given Lactobacillus Acidophilus (Bacid Acidophilus) 1 cap GT BID [facility] Last Admin: 10/20/18 17:41 Dose: 1 cap Methimazole (Tapazole) 20 mg PO Q8 [facility] Last Admin: 10/20/18 22:00 Dose: 20 mg Midodrine (Proamatine) 10 mg PO TID [facility] Last Admin: 10/20/18 17:42 Dose: 10 mg Modafinil (Provigil) 50 mg PO DAILY [facility] Last Admin: 10/20/18 09:41 Dose: 50 mg Multivitamins (Hexavitamin) 1 tab PEG DAILY [facility] Last Admin: 10/20/18 09:42 Dose: 1 tab Pantoprazole Sodium (Protonix Susp) 40 mg GT Q12H [facility] Last Admin: 10/20/18 22:00 Dose: 40 mg Tamsulosin HCl (Flomax) 0.4 mg PEG DAILY [facility] Last Admin: 10/20/18 09:42 Dose: 0.4 mg Vitamin A (Vitamin A & D Oint Ud Foilpak) 0.5 ea TOP BID [facility] Last Admin: 10/20/18 17:41 Dose: 0.5 ea - Labs Labs: 10/20/18 06:24 10/20/18 06:21 PT 13.2 SECONDS (9.7-12.2) H 10/18/18 05:47 INR 1.2 10/18/18 05:47 APTT 23 SECONDS (21-34) 10/02/18 06:10 - Constitutional Appears: Well, Non-toxic - Head Exam Head Exam: ATRAUMATIC, NORMAL INSPECTION, NORMOCEPHALIC - Eye Exam Eye Exam: EOMI, Normal appearance - ENT Exam ENT Exam: Normal Exam - Neck Exam Additional comments: trach in place - Respiratory Exam Respiratory Exam: Clear to Ausculation Bilateral, NORMAL BREATHING PATTERN - Cardiovascular Exam Cardiovascular Exam: REGULAR RHYTHM - GI/Abdominal Exam GI & Abdominal Exam: Distended. absent: Tenderness - Extremities Exam Additional comments: UE flexion of elbows, wrists, and fingers - Neurological Exam Neurological Exam: Alert, Awake (patient making noises but not comprehensible) - Psychiatric Exam Additional comments: unable to assess due to patient condition - Skin Skin Exam: Dry, Intact, Normal Color, Warm Additional comments: patient on pressure offloading boots Assessment and Plan - Assessment and Plan (Free Text) Assessment: 53f initially admitted on 07/07/18 for cough and malaise x 2-3 weeks. Recurrent Pleural Effusions -Stable, Afebrile, Off Abx - S/p thoracentesis 10/20/18 with IR, without pigtail placement. F/u chest portable. -right thoracentesis, done 10/13/18: 1000cc of clear fluid were aspirated -CXR on 10/13/18 showed Interval significant improvement in right pleural effusion versus pulmonary edema. No pneumothorax. Worsening left pleural effusion versus pulmonary edema and redemonstration of loculated effusion along the left lateral chest wall. Stable position of the tracheostomy tube (see full report) -As patient keeps developing pleural effusions, we will need to discuss with Dr Lozada if patient will benefit from pigtail catheter -Continue Duonebs Q4H [facility] with mucomist -Infectious disease, Dr Brock on consult, help appreciated -Imaging: - Chest XR 10/01: Interval development of pleural effusions with loculated component along the right lateral chest wall. Moderate pulmonary venous congestion. Underlying pulmonary edema especially in the right lung is also a co nsideration. Follow up after medical management is recommended to ensure complete resolution. - Chest XR 10/04: Potential pulmonary vascular congestion vs infiltrates with possible trace left pleural effusion. Improved from 10/02 - Chest XR 10/05: Showing increased pulmonary vascular congestion compared to 10/04 - Chest XR 10/09: showing significant congestion - CXR 10/10: Less dense consolidation right lung base-improved aeration/less passive compressive atelectasis inferred and/or partial clearing of some right pleural fluid. No pneumothorax seen. Extensive bilateral pleural effusions still persist. Less now on the right than before. - CXR 10/17 - Worsening pleural effusions bilaterally. Significant pleural effusion on the left. VRE + Urine -Hernandes placed with CBI -Afebrile sice 10/14 (blood cultures repeated) -Urine Cx 09/30 +VRE -Blood Cx 10/14 show no growth x 5 days -Tylenol prn fever Hypotension - Monitor albumin, administer prn doses - Midodrine increased to 10 mg PO TID Hyperthyroidism -Methimazole 20 mg PO Q8 Prophylactic measure * Protonix 40mg GT BID * Lactobacillus 1 cap PO BID * MVI 1x/day * Vitamin C 1,000 NG 1x/day * s/p Trach and Peg * SCD on Right and contraindicated on Left due to DVT * Peg feedings * Pulmcar 40cc/hr * patient had frequent BMs on prior formula; no diarrhea; we have spoken with dietary to change it on 08/19/18 * PICC Line d/c due to coiling * Patient has midline access * Note: speak to patient in [place] to assess neurologic status-->she does follow sometimes * s/p bronchoscopy 08/23 * s/p IVC filter 08/23 * s/p LP 09/15 * s/p right chest tube insertion 09/06; removed 09/15 * patient is FULL CODE * Provigil 50mg PO daily started to promote wakefulness during the day. * Social work note (08/09/18): patient is undocumented, has not health insurance, dc planning will be at home with During this prolonged hospital stay, patient treated for the following medical problems. See prior notes for details. 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 Low TSH, and Free T4 Thyroid Storm -Anemia Likely Secondary to Chronic Diseases Dysfunctional uterine bleeding -Vitamin D deficiency -Thrombocytopenia -13 mm Left Adrenal Nodule -Hypernatremia -Deconditioning -Tardive Dyskinesia Disposition: PT/OT. Possible chest tube placement for worsening pleural effusions. <Saira Leahy V - Last Filed: 10/21/18 14:18> Objective - Vital Signs/Intake and Output Vital Signs (last 24 hours): Temp Pulse Resp BP Pulse Ox 98.8 F 78 19 118/97 H 100 10/21/18 14:00 10/21/18 14:00 10/21/18 14:00 10/21/18 14:00 10/21/18 10:00 Intake and Output: 10/21/18 10/21/18 06:59 18:59 Intake Total 650 10 Output Total 250 Balance 400 10 - Medications Medications: Current Medications Acetylcysteine (Acetylcysteine 20%) 4 ml INH RQ4 [facility] Last Admin: 10/21/18 13:34 Dose: Not Given Ascorbic Acid (Vitamin C 500 Mg Tab) 1,000 mg NG DAILY [facility] Last Admin: 10/21/18 10:19 Dose: 1,000 mg Aspirin (Aspirin Chewable) 81 mg GT DAILY [facility] Last Admin: 10/21/18 10:19 Dose: 81 mg Dextrose (Dextrose 50% Inj) 0 ml IVP .STAT PRN; Protocol PRN Reason: Hypoglycemia Protocol Dextrose (Glutose 15) 0 gm PO .ONCE PRN; Protocol PRN Reason: Hypoglycemia Protocol Glucagon (Glucagen Diagnostic Kit) 0 mg IM .STAT PRN; Protocol PRN Reason: Hypoglycemia Protocol Insulin Aspart (Novolog) 0 unit SC Q12H [facility]; Protocol Last Admin: 10/21/18 12:30 Dose: 2 u Lactobacillus Acidophilus (Bacid Acidophilus) 1 cap GT BID [facility] Last Admin: 10/21/18 10:19 Dose: 1 cap Methimazole (Tapazole) 20 mg PO Q8 [facility] Last Admin: 10/21/18 13:34 Dose: 20 mg Midodrine (Proamatine) 10 mg PO TID [facility] Last Admin: 10/21/18 13:34 Dose: 10 mg Modafinil (Provigil) 50 mg PO DAILY [facility] Last Admin: 10/21/18 10:19 Dose: 50 mg Multivitamins (Hexavitamin) 1 tab PEG DAILY [facility] Last Admin: 10/21/18 10:19 Dose: 1 tab Pantoprazole Sodium (Protonix Susp) 40 mg GT Q12H [facility] Last Admin: 10/21/18 10:27 Dose: 40 mg Tamsulosin HCl (Flomax) 0.4 mg PEG DAILY [facility] Last Admin: 10/21/18 10:19 Dose: 0.4 mg Vitamin A (Vitamin A & D Oint Ud Foilpak) 0.5 ea TOP BID [facility] Last Admin: 10/21/18 10:24 Dose: 0.5 ea - Labs Labs: 10/20/18 06:24 10/20/18 06:21 PT 13.2 SECONDS (9.7-12.2) H 10/18/18 05:47 INR 1.2 10/18/18 05:47 APTT 23 SECONDS (21-34) 10/02/18 06:10 Assessment and Plan (1) Septic shock Status: Acute (2) Acute respiratory failure Status: Acute (3) Urinary tract infection Status: Acute (4) Acute renal failure Status: Acute (5) Aspiration pneumonia Status: Acute (6) Diabetes mellitus Status: Chronic (7) Ventricular arrhythmia Status: Acute (8) Hyperthyroidism Status: Acute (9) Anemia Status: Acute (10) Anoxic brain injury Status: Acute (11) Prophylactic measure Status: Acute Attending/Attestation - Attestation I have personally seen and examined this patient.: Yes I have fully participated in the care of the patient.: Yes I have reviewed all pertinent clinical information, including history, physical exam and plan: Yes Notes (Text): Patient seen, examined, and case discussed with day-time resident. This is a 53-year-old female with a prolonged hospitalization for treatment for septic shock complicated by both pneumonia and urinary tract infections, anoxic encephalopathy likely secondary to 2 cardiac arrest during hospitalization, hyperthyroidism which has been controlled on methimazole, shock liver which is now recovered, history of apical thrombus which is currently being treated with aspirin and is not on anticoagulation secondary to worsening heavy vaginal bleeding which required multiple blood transfusions during hospitalization, history of left lower extremity DVT which falling 1 month of anticoagulation has radiographically disappeared on repeat ultrasound and has now an IVC filter, as well as diabetes, vitamin D deficiency. Patient recently had a chest x-ray completed on Oct 13 wherein she went through a thoracentesis for pleural effusion. We have repeated chest xray recently.I have discussed with Dr. Lozada, patient will likely need pigtail catheter given the reaccumulation of fluid. Patient is noted to be incontinent of the urine has been straight cath when she does retain. Patient was on [address] Hernandes since 10/05/17 evening with CBI to clean out urine which she is off. Patient is off antibiotic since 10/05/17. Blood cultures 10/14/18 which show no growth for 3 days X2. She had a fever on 10/14/18 which was 101; has remained afebrile since. Also note patient did underwent a lumbar puncture on September 15 HSV-2 IgM antibody, VDRL, and the West Nile are still pending. Physical therapy had signed off on September 24 because patient is not a candidate because she cannot follow directions. Patient would be an ideal candidate for LTAC however she does not have insurance, her is not from this country which limits her ability for services. The other thing is patient still remains trach to vent as well. Also to note patient does have sequential compressive stocking since the follow- up venous Doppler which did indicate that the clot had cleared.Patient does have noted muscle wasting. Wound care re-evaluated the patient on 10/05/18 for skin break down over the flexor surfaces over the knee. New recommendations were placed. Patient has dressings over the sites. Patient's midodrine increased to 10mg PO TID to increase blood pressure recently. Patient noted to have poor prognosis though she has survived many things during her hospitalization. Her who remains in high spirits hopes that she will recover and has been persistently at bedside every single day since being hospitalized in July. Today, patient has less lip smacking and appeared to be mouthing words. Patient sitting upright in chair connected to vent. Patient underwent thoracentesis with IR 10/20/18 and 900 cc removed but no pig tail catheter was inserted. Will follow-up chest xray which shows opacification left mid to lower lung field secondary to large left sided effusion. presumed left basilar atelectasis. improved right sided effusion and atelectasis. Discussed with Dr. Lozada, will plan for pig tail cathter insertion for 10/24/18. Patient's hemoglobin below 7.7-->will transfuse 1 unit of PRBC today; with PRN lasix to prevent fluid overload.
[2018-10-21] MEDS: Acetylcysteine 20% Inhal Soln (4ml) INH SCH ×6 (04:00→19:00)
[2018-10-21] MEDS: Multiple Vitamins Tab PEG SCH (10:19)
[2018-10-21] MEDS: Lactobacillus Acidophilus 500 MU Cap GT SCH ×2 (10:19→18:01)
[2018-10-21] MEDS: Modafinil 50 MG TAB PO SCH (10:19)
[2018-10-21] MEDS: Vitamins A & D Oint UD Foilpak TOP SCH ×2 (10:24→18:01)
[2018-10-21] MEDS: Pantoprazole 40 mg Susp UD GT SCH ×2 (10:27→21:47)
[2018-10-21] MEDS: (Novolog) Insulin Aspart, Recombinant 100 u/ml 10 ml vial SC SCH ×2 (12:30)
[2018-10-21 19:16] LABS: URINE CLARITY SL HAZY (Clear); URINE COLOR YELLOW (YELLOW); URINE GLUCOSE (UA) NEGATIVE (Normal)
[2018-10-21 19:17] LABS: PH,URINE 5.5 (5.0-8.0); URINE BILIRUBIN NEGATIVE (NEGATIVE); URINE BLOOD MODERATE (NEGATIVE); URINE LEUKOCYTE ESTERASE MODERATE Leu/uL (Negative); URINE PROTEIN 30 mg/dL (NEGATIVE); URINE UROBILINOGEN 0.2 mg/dL (0.2-1.0)
[2018-10-21 19:18] LABS: SQUAMOUS EPITHIAL 15 /hpf (0-5)
[2018-10-21 19:22] LABS: URINE AMORPHOUS SEDIMENT FEW /ul (<OCC)
[2018-10-22] MEDS: Acetylcysteine 20% Inhal Soln (4ml) INH SCH ×6 (03:54→21:14)
--- NOTE | 2018-10-22 04:27 | CP.PCM.PN ---
<Krysten Ball - Last Filed: 10/22/18 04:33> Subjective - Date & Time of Evaluation Date of Evaluation: 10/22/18 Time of Evaluation: 04:25 - Subjective Subjective: Medicine Progress Note Patient seen and examined at bedside without family around. Patient was awake and moving her arms and head slightly. Due to patient condition ROS unable to be obtained. Objective - Vital Signs/Intake and Output Vital Signs (last 24 hours): Temp Pulse Resp BP Pulse Ox 99.1 F 85 20 106/62 99 10/22/18 02:00 10/22/18 03:35 10/22/18 03:35 10/22/18 03:35 10/22/18 03:35 Intake and Output: 10/21/18 10/22/18 18:59 06:59 Intake Total 1010 430 Balance 1010 430 - Medications Medications: Current Medications Acetylcysteine (Acetylcysteine 20%) 4 ml INH RQ4 [facility] Last Admin: 10/21/18 13:34 Dose: Not Given Ascorbic Acid (Vitamin C 500 Mg Tab) 1,000 mg NG DAILY [facility] Last Admin: 10/21/18 10:19 Dose: 1,000 mg Aspirin (Aspirin Chewable) 81 mg GT DAILY [facility] Last Admin: 10/21/18 10:19 Dose: 81 mg Dextrose (Dextrose 50% Inj) 0 ml IVP .STAT PRN; Protocol PRN Reason: Hypoglycemia Protocol Dextrose (Glutose 15) 0 gm PO .ONCE PRN; Protocol PRN Reason: Hypoglycemia Protocol Furosemide (Lasix) 20 mg IVP ONCE PRN PRN Reason: PLEURAL EFFUSION Last Admin: 10/21/18 21:30 Dose: 20 mg Glucagon (Glucagen Diagnostic Kit) 0 mg IM .STAT PRN; Protocol PRN Reason: Hypoglycemia Protocol Insulin Aspart (Novolog) 0 unit SC Q12H [facility]; Protocol Last Admin: 10/22/18 00:00 Dose: Not Given Lactobacillus Acidophilus (Bacid Acidophilus) 1 cap GT BID [facility] Last Admin: 10/21/18 18:01 Dose: 1 cap Methimazole (Tapazole) 20 mg PO Q8 [facility] Last Admin: 10/21/18 21:46 Dose: 20 mg Midodrine (Proamatine) 10 mg PO TID [facility] Last Admin: 10/21/18 18:01 Dose: 10 mg Modafinil (Provigil) 50 mg PO DAILY [facility] Last Admin: 10/21/18 10:19 Dose: 50 mg Multivitamins (Hexavitamin) 1 tab PEG DAILY [facility] Last Admin: 10/21/18 10:19 Dose: 1 tab Pantoprazole Sodium (Protonix Susp) 40 mg GT Q12H [facility] Last Admin: 10/21/18 21:47 Dose: 40 mg Tamsulosin HCl (Flomax) 0.4 mg PEG DAILY [facility] Last Admin: 10/21/18 10:19 Dose: 0.4 mg Vitamin A (Vitamin A & D Oint Ud Foilpak) 0.5 ea TOP BID [facility] Last Admin: 10/21/18 18:01 Dose: 0.5 ea - Labs Labs: 10/20/18 06:24 10/20/18 06:21 PT 13.2 SECONDS (9.7-12.2) H 10/18/18 05:47 INR 1.2 10/18/18 05:47 APTT 23 SECONDS (21-34) 10/02/18 06:10 - Head Exam Head Exam: ATRAUMATIC, NORMAL INSPECTION, NORMOCEPHALIC - Eye Exam Eye Exam: Normal appearance - Respiratory Exam Respiratory Exam: Clear to Ausculation Bilateral, NORMAL BREATHING PATTERN - Cardiovascular Exam Cardiovascular Exam: REGULAR RHYTHM - GI/Abdominal Exam GI & Abdominal Exam: Distended, Normal Bowel Sounds - Extremities Exam Extremities Exam: Normal Inspection - Neurological Exam Neurological Exam: Alert, Awake - Skin Skin Exam: Dry, Intact, Normal Color, Warm Assessment and Plan - Assessment and Plan (Free Text) Assessment: 53f initially admitted on 07/07/18 for cough and malaise x 2-3 weeks. Recurrent Pleural Effusions -Stable, Afebrile, Off Abx - S/p thoracentesis 10/20/18 with IR, without pigtail placement. F/u chest harris ble. -right thoracentesis, done 10/13/18: 1000cc of clear fluid were aspirated -CXR on 10/13/18 showed Interval significant improvement in right pleural effusion versus pulmonary edema. No pneumothorax. Worsening left pleural effusion versus pulmonary edema and redemonstration of loculated effusion along the left lateral chest wall. Stable position of the tracheostomy tube (see full report) -As patient keeps developing pleural effusions, we will need to discuss with Dr Lozada if patient will benefit from pigtail catheter -Continue Duonebs Q4H [facility] with mucomist -Infectious disease, Dr Brock on consult, help appreciated -Imaging: - Chest XR 10/01: Interval development of pleural effusions with loculated component along the right lateral chest wall. Moderate pulmonary venous congestion. Underlying pulmonary edema especially in the right lung is also a consideration. Follow up after medical management is recommended to ensure complete resolution. - Chest XR 10/04: Potential pulmonary vascular congestion vs infiltrates with possible trace left pleural effusion. Improved from 10/02 - Chest XR 10/05: Showing increased pulmonary vascular congestion compared to 10/04 - Chest XR 10/09: showing significant congestion - CXR 10/10: Less dense consolidation right lung base-improved aeration/less passi ve compressive atelectasis inferred and/or partial clearing of some right pleural fluid. No pneumothorax seen. Extensive bilateral pleural effusions still persist. Less now on the right than before. - CXR 10/17 - Worsening pleural effusions bilaterally. Significant pleural effusion on the left. VRE + Urine -Hernandes placed with CBI -Afebrile sice 10/14 (blood cultures repeated) -Urine Cx 09/30 +VRE -Blood Cx 10/14 show no growth x 5 days -Tylenol prn fever Hypotension - Monitor albumin, administer prn doses - Midodrine increased to 10 mg PO TID Hyperthyroidism -Methimazole 20 mg PO Q8 Prophylactic measure * Protonix 40mg GT BID * Lactobacillus 1 cap PO BID * MVI 1x/day * Vitamin C 1,000 NG 1x/day * s/p Trach and Peg * SCD on Right and contraindicated on Left due to DVT * Peg feedings * Pulmcar 40cc/hr * patient had frequent BMs on prior formula; no diarrhea; we have spoken with dietary to change it on 08/19/18 * PICC Line d/c due to coiling * Patient has midline access * Note: speak to patient in [place] to assess neurologic status-->she does follow sometimes * s/p bronchoscopy 08/23 * s/p IVC filter 08/23 * s/p LP 09/15 * s/p right chest tube insertion 09/06; removed 09/15 * patient is FULL CODE * Provigil 50mg PO daily started to promote wakefulness during the day. * Social work note (08/09/18): patient is undocumented, has not health insurance, dc planning will be at home with During this prolonged hospital stay, patient treated for the following medical problems. See prior notes for details. 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 Low TSH, and Free T4 Thyroid Storm -Anemia Likely Secondary to Chronic Diseases Dysfunctional uterine bleeding -Vitamin D deficiency -Thrombocytopenia -13 mm Left Adrenal Nodule -Hypernatremia -Deconditioning -Tardive Dyskinesia Disposition: PT/OT. Possible chest tube placement for worsening pleural effusions. f/u CBC later this AM s/p PRBC 1 unit <Saira Leahy V - Last Filed: 10/22/18 10:04> Objective - Vital Signs/Intake and Output Vital Signs (last 24 hours): Temp Pulse Resp BP Pulse Ox 98.7 F 81 14 91/50 L 99 10/22/18 08:00 10/22/18 08:00 10/22/18 08:00 10/22/18 07:34 10/22/18 08:00 Intake and Output: 10/22/18 10/22/18 06:59 18:59 Intake Total 690 Output Total 550 Balance 140 - Medications Medications: Current Medications Acetylcysteine (Acetylcysteine 20%) 4 ml INH RQ4 [facility] Last Admin: 10/22/18 07:43 Dose: Not Given Ascorbic Acid (Vitamin C 500 Mg Tab) 1,000 mg NG DAILY [facility] Last Admin: 10/21/18 10:19 Dose: 1,000 mg Aspirin (Aspirin Chewable) 81 mg GT DAILY [facility] Last Admin: 10/21/18 10:19 Dose: 81 mg Dextrose (Dextrose 50% Inj) 0 ml IVP .STAT PRN; Protocol PRN Reason: Hypoglycemia Protocol Dextrose (Glutose 15) 0 gm PO .ONCE PRN; Protocol PRN Reason: Hypoglycemia Protocol Furosemide (Lasix) 20 mg IVP ONCE PRN PRN Reason: PLEURAL EFFUSION Last Admin: 10/21/18 21:30 Dose: 20 mg Glucagon (Glucagen Diagnostic Kit) 0 mg IM .STAT PRN; Protocol PRN Reason: Hypoglycemia Protocol Insulin Aspart (Novolog) 0 unit SC Q12H [facility]; Protocol Last Admin: 10/22/18 00:00 Dose: Not Given Lactobacillus Acidophilus (Bacid Acidophilus) 1 cap GT BID [facility] Last Admin: 10/21/18 18:01 Dose: 1 cap Methimazole (Tapazole) 20 mg PO Q8 [facility] Last Admin: 10/22/18 06:40 Dose: 20 mg Midodrine (Proamatine) 10 mg PO TID [facility] Last Admin: 10/21/18 18:01 Dose: 10 mg Modafinil (Provigil) 50 mg PO DAILY [facility] Last Admin: 10/21/18 10:19 Dose: 50 mg Multivitamins (Hexavitamin) 1 tab PEG DAILY [facility] Last Admin: 10/21/18 10:19 Dose: 1 tab Pantoprazole Sodium (Protonix Susp) 40 mg GT Q12H [facility] Last Admin: 10/21/18 21:47 Dose: 40 mg Tamsulosin HCl (Flomax) 0.4 mg PEG DAILY [facility] Last Admin: 10/21/18 10:19 Dose: 0.4 mg Vitamin A (Vitamin A & D Oint Ud Foilpak) 0.5 ea TOP BID [facility] Last Admin: 10/21/18 18:01 Dose: 0.5 ea - Labs Labs: 10/22/18 06:18 10/22/18 06:18 PT 13.2 SECONDS (9.7-12.2) H 10/18/18 05:47 INR 1.2 10/18/18 05:47 APTT 23 SECONDS (21-34) 10/02/18 06:10 Assessment and Plan (1) Septic shock Status: Acute (2) Acute respiratory failure Status: Acute (3) Urinary tract infection Status: Acute (4) Acute renal failure Status: Acute (5) Aspiration pneumonia Status: Acute (6) Diabetes mellitus Status: Chronic (7) Ventricular arrhythmia Status: Acute (8) Hyperthyroidism Status: Acute (9) Anemia Status: Acute (10) Anoxic brain injury Status: Acute (11) Prophylactic measure Status: Acute Attending/Attestation - Attestation I have personally seen and examined this patient.: Yes I have fully participated in the care of the patient.: Yes I have reviewed all pertinent clinical information, including history, physical exam and plan: Yes Notes (Text): Patient seen, examined, and case discussed with day-time resident. This is a 53-year-old female with a prolonged hospitalization for treatment for septic shock complicated by both pneumonia and urinary tract infections, anoxic encephalopathy likely secondary to 2 cardiac arrest during hospitalization, hyperthyroidism which has been controlled on methimazole, shock liver which is now recovered, history of apical thrombus which is currently being treated with aspirin and is not on anticoagulation secondary to worsening heavy vaginal bleeding which required multiple blood transfusions during hospitalization, history of left lower extremity DVT which falling 1 month of anticoagulation has radiographically disappeared on repeat ultrasound and has now an IVC filter, as well as diabetes, vitamin D deficiency. Patient recently had a chest x-ray completed on Oct 13 wherein she went thr ough a thoracentesis for pleural effusion. We have repeated chest xray recently.I have discussed with Dr. Lozada, patient will likely need pigtail catheter given the reaccumulation of fluid. Will plan for CT Chest w/o contrast tomorrow to plan for pigtail insertion on Tuesday10/24/18 Patient is noted to be incontinent of the urine has been straight cath when she does retain. Patient was on [address] Hernandes since 10/05/17 evening with CBI to clean out urine which she is off. Patient is off antibiotic since 10/05/17. Blood cultures 10/14/18 which show no growth for 5 days X2. She had a fever on 10/21/18 which was 100.4; has remained afebrile since. Follow-up blood culture (10/21/18) and urine culture (10/21/18) pending. Also note patient did underwent a lumbar puncture on September 15 HSV-2 IgM antibody, VDRL, and the West Nile are still pending. Physical therapy had signed off on September 24 because patient is not a candidate because she cannot follow directions. Patient would be an ideal candidate for LTAC however she does not have insurance, her is not from this country which limits her ability for services. The other thing is patient still remains trach to vent as well. Also to note patient does have sequential compressive stocking since the follow- up venous Doppler which did indicate that the clot had cleared.Patient does have noted muscle wasting. Wound care re-evaluated the patient on 10/05/18 for skin break down over the flexor surfaces over the knee. New recommendations were placed. Patient has dressings over the sites. Patient's midodrine increased to 10mg PO TID to increase blood pressure recently. Patient noted to have poor prognosis though she has survived many things during her hospitalization. Her who remains in high spirits hopes that she will recover and has been persistently at bedside every single day since being hospitalized in July. Today, patient is sleeping at bedside. Patient was up all night per nursing staff. Patient underwent thoracentesis with IR 10/20/18 and 900 cc removed but no pig tail catheter was inserted. CT Chest to be ordered tomorrow in preparation for pig tail insertion. Patient's hemoglobin below 7.7 yesterday improved to 8.5. Repeat chest xray today; may need additional lasix. repeat CT chest for Tuesday for possible pig tail catheter insertion.
[2018-10-22 06:27] LABS: HEMOGLOBIN 8.5 g/dL (11.0-16.0); MEAN CORPUSCULAR HEMOGLOBIN 30.2 pg (27.0-31.0); MEAN CORPUSCULAR HGB CONC 32.8 g/dL (33.0-37.0); MEAN PLATELET VOLUME 8.3 fL (7.2-11.7); RBC 2.82 Mil/uL (3.80-5.20); RED CELL DISTRIBUTION WIDTH 19.5 % (11.5-14.5); WHITE BLOOD COUNT 9.5 K/uL (4.8-10.8)
[2018-10-22 06:53] LABS: ALB/GLOB RATIO 0.9 (1.0-2.1); ALBUMIN 2.7 g/dL (3.5-5.0); ALT/SGPT 21 U/L (9-52); AST/SGOT 27 U/L (14-36); BLOOD UREA NITROGEN 43 mg/dL (7-17); CALCIUM 7.8 mg/dl (8.6-10.4); GFR NON-AFRICAN AMERICAN 58
[2018-10-22] MEDS: Pantoprazole 40 mg Susp UD GT SCH ×2 (09:40→20:58)
[2018-10-22] MEDS: Lactobacillus Acidophilus 500 MU Cap GT SCH ×2 (10:26→17:15)
[2018-10-22] MEDS: Multiple Vitamins Tab PEG SCH (10:26)
[2018-10-22] MEDS: Vitamins A & D Oint UD Foilpak TOP SCH ×2 (10:26→17:16)
[2018-10-22] MEDS: Modafinil 50 MG TAB PO SCH (10:26)
[2018-10-22] MEDS: (Novolog) Insulin Aspart, Recombinant 100 u/ml 10 ml vial SC SCH ×2 (12:33)
--- NOTE | 2018-10-22 13:11 | RAD ---
Date of service: 10/22/2018 HISTORY: Pleural effusion COMPARISON: Comparison chest dated 10/20/2018 FINDINGS: In situ tracheostomy tube again noted. There is a right-sided PICC line the tip of which terminates in the right axillary region. LUNGS: Further opacification both hemithoraces left greater than right. Findings likely represent large layering effusions and some combination of atelectasis and or infiltrate. PLEURA: No significant pleural effusion identified, no pneumothorax apparent. CARDIOVASCULAR: Minor aortic atherosclerotic calcification less well seen on this study compared to prior studies. Heart size is difficult to assess due to silhouetting of the cardiac borders. OSSEOUS STRUCTURES: No significant abnormalities. VISUALIZED UPPER ABDOMEN: Normal. OTHER FINDINGS: None. IMPRESSION: In situ tracheostomy tube in good position. Right-sided PICC line terminates in the right axillary region. Further opacification both hemithoraces left greater than right. Findings likely represent large layering effusions and some combination of atelectasis and or infiltrate.
--- NOTE | 2018-10-22 17:16 | CP.PCM.PN ---
Subjective - Date & Time of Evaluation Date of Evaluation: 10/22/18 Time of Evaluation: 09:00 - Subjective Subjective: afeb on vent nad Objective - Vital Signs/Intake and Output Vital Signs (last 24 hours): Temp Pulse Resp BP Pulse Ox 98.7 F 90 18 106/65 100 10/22/18 16:00 10/22/18 16:00 10/22/18 16:00 10/22/18 15:35 10/22/18 16:00 Intake and Output: 10/22/18 10/22/18 06:59 18:59 Intake Total 690 590 Output Total 550 Balance 140 590 - Medications Medications: Current Medications Acetylcysteine (Acetylcysteine 20%) 4 ml INH RQ4 [facility] Last Admin: 10/22/18 16:03 Dose: Not Given Albuterol/Ipratropium (Duoneb 3 Mg/0.5 Mg (3 Ml) Ud) 3 ml INH Q4H [facility] Ascorbic Acid (Vitamin C 500 Mg Tab) 1,000 mg NG DAILY [facility] Last Admin: 10/22/18 10:26 Dose: 1,000 mg Aspirin (Aspirin Chewable) 81 mg GT DAILY [facility] Last Admin: 10/22/18 10:26 Dose: 81 mg Dextrose (Dextrose 50% Inj) 0 ml IVP .STAT PRN; Protocol PRN Reason: Hypoglycemia Protocol Dextrose (Glutose 15) 0 gm PO .ONCE PRN; Protocol PRN Reason: Hypoglycemia Protocol Furosemide (Lasix) 20 mg IVP ONCE PRN PRN Reason: PLEURAL EFFUSION Last Admin: 10/21/18 21:30 Dose: 20 mg Glucagon (Glucagen Diagnostic Kit) 0 mg IM .STAT PRN; Protocol PRN Reason: Hypoglycemia Protocol Insulin Aspart (Novolog) 0 unit SC Q12H [facility]; Protocol Last Admin: 10/22/18 12:33 Dose: 2 u Lactobacillus Acidophilus (Bacid Acidophilus) 1 cap GT BID [facility] Last Admin: 10/22/18 17:15 Dose: 1 cap Methimazole (Tapazole) 20 mg PO Q8 [facility] Last Admin: 10/22/18 13:23 Dose: 20 mg Midodrine (Proamatine) 10 mg PO TID [facility] Last Admin: 10/22/18 17:15 Dose: 10 mg Modafinil (Provigil) 50 mg PO DAILY [facility] Last Admin: 01/20/19 10:26 Dose: 50 mg Multivitamins (Hexavitamin) 1 tab PEG DAILY [facility] Last Admin: 10/22/18 10:26 Dose: 1 tab Pantoprazole Sodium (Protonix Susp) 40 mg GT Q12H [facility] Last Admin: 10/22/18 09:40 Dose: 40 mg Tamsulosin HCl (Flomax) 0.4 mg PEG DAILY [facility] Last Admin: 10/22/18 10:26 Dose: 0.4 mg Vitamin A (Vitamin A & D Oint Ud Foilpak) 0.5 ea TOP BID [facility] Last Admin: 10/22/18 10:26 Dose: 0.5 ea - Labs Labs: 10/22/18 06:18 10/22/18 06:18 PT 13.2 SECONDS (9.7-12.2) H 10/18/18 05:47 INR 1.2 10/18/18 05:47 APTT 23 SECONDS (21-34) 10/02/18 06:10 - Constitutional Appears: Non-toxic, Cachectic, Chronically Ill - Head Exam Head Exam: NORMOCEPHALIC - Eye Exam Eye Exam: absent: Scleral icterus - ENT Exam ENT Exam: Mucous Membranes Dry - Neck Exam Neck Exam: absent: Lymphadenopathy - Respiratory Exam Respiratory Exam: Decreased Breath Sounds - Cardiovascular Exam Cardiovascular Exam: REGULAR RHYTHM - GI/Abdominal Exam GI & Abdominal Exam: Distended, Soft Assessment and Plan (1) NEHA (acute kidney injury) Status: Acute (2) Acute renal failure Status: Acute (3) Acute respiratory failure Status: Acute (4) Aspiration pneumonia Status: Acute (5) Septic shock Status: Acute (6) Urinary tract infection Status: Acute (7) Diabetes mellitus Status: Chronic (8) Anoxic brain damage Status: Acute
[2018-10-22] MEDS: Albuterol-Ipratrop 3 mg / 0.5 (3 ml) UD INH SCH ×2 (21:13)
[2018-10-23] MEDS: (Novolog) Insulin Aspart, Recombinant 100 u/ml 10 ml vial SC SCH ×2 (00:25→13:11)
[2018-10-23] MEDS: Albuterol-Ipratrop 3 mg / 0.5 (3 ml) UD INH SCH ×3 (03:35→19:25)
[2018-10-23] MEDS: Acetylcysteine 20% Inhal Soln (4ml) INH SCH ×6 (03:35→19:24)
[2018-10-23 06:16] LABS: BASO % 0.4 % (0.0-2.0); EOS # 0.5 K/uL (0.0-0.7); EOS % 5.2 % (0.0-4.0); HEMOGLOBIN 8.5 g/dL (11.0-16.0); LYMPH # 1.4 K/uL (1.0-4.3); LYMPH % 13.1 % (20.0-40.0); MEAN CELL VOLUME 92.9 fL (81.0-99.0); MEAN CORPUSCULAR HEMOGLOBIN 30.5 pg (27.0-31.0); MEAN CORPUSCULAR HGB CONC 32.8 g/dL (33.0-37.0); MEAN PLATELET VOLUME 8.4 fL (7.2-11.7); MONO # 0.6 K/uL (0.0-0.8); NEUT # 7.8 K/uL (1.8-7.0); NEUT % 75.3 % (50.0-75.0); RBC 2.8 Mil/uL (3.80-5.20); RED CELL DISTRIBUTION WIDTH 19.9 % (11.5-14.5); WHITE BLOOD COUNT 10.3 K/uL (4.8-10.8)
[2018-10-23 06:34] LABS: ALB/GLOB RATIO 0.8 (1.0-2.1); ALBUMIN 2.7 g/dL (3.5-5.0); ALT/SGPT 23 U/L (9-52); AST/SGOT 29 U/L (14-36); BLOOD UREA NITROGEN 46 mg/dL (7-17); CALCIUM 7.9 mg/dl (8.6-10.4); GFR NON-AFRICAN AMERICAN 58
[2018-10-23 06:36] LABS: INR 1.2; PROTHROMBIN TIME 13.3 SECONDS (9.7-12.2)
--- NOTE | 2018-10-23 07:08 | CP.PCM.PN ---
<Elijah Weinberg - Last Filed: 10/23/18 08:08> Subjective - Date & Time of Evaluation Date of Evaluation: 10/23/18 Time of Evaluation: 07:07 - Subjective Subjective: PGY-[address] Merry Nesbitt Patient seen and examined at bedside. No acute events overnight. Patient remains stable on vent with PEG in place. We continue to monitor for recurring pleural effusions. ROS unable to be obtained. Objective - Vital Signs/Intake and Output Vital Signs (last 24 hours): Temp Pulse Resp BP Pulse Ox 98.7 F 89 14 108/64 100 10/23/18 04:00 10/23/18 04:00 10/23/18 04:00 10/23/18 04:00 10/23/18 04:00 - Medications Medications: Current Medications Acetylcysteine (Acetylcysteine 20%) 4 ml INH RQ4 [facility] Last Admin: 10/23/18 03:35 Dose: 4 ml Albuterol/Ipratropium (Duoneb 3 Mg/0.5 Mg (3 Ml) Ud) 3 ml INH Q4H [facility] Last Admin: 10/23/18 03:35 Dose: 3 ml Ascorbic Acid (Vitamin C 500 Mg Tab) 1,000 mg NG DAILY [facility] Last Admin: 10/22/18 10:26 Dose: 1,000 mg Aspirin (Aspirin Chewable) 81 mg GT DAILY [facility] Last Admin: 10/22/18 10:26 Dose: 81 mg Dextrose (Dextrose 50% Inj) 0 ml IVP .STAT PRN; Protocol PRN Reason: Hypoglycemia Protocol Dextrose (Glutose 15) 0 gm PO .ONCE PRN; Protocol PRN Reason: Hypoglycemia Protocol Furosemide (Lasix) 20 mg IVP ONCE PRN PRN Reason: PLEURAL EFFUSION Last Admin: 10/21/18 21:30 Dose: 20 mg Glucagon (Glucagen Diagnostic Kit) 0 mg IM .STAT PRN; Protocol PRN Reason: Hypoglycemia Protocol Insulin Aspart (Novolog) 0 unit SC Q12H [facility]; Protocol Last Admin: 10/23/18 00:25 Dose: Not Given Lactobacillus Acidophilus (Bacid Acidophilus) 1 cap GT BID [facility] Last Admin: 10/22/18 17:15 Dose: 1 cap Methimazole (Tapazole) 20 mg PO Q8 [facility] Last Admin: 10/23/18 05:16 Dose: 20 mg Midodrine (Proamatine) 10 mg PO TID [facility] Last Admin: 10/22/18 17:15 Dose: 10 mg Modafinil (Provigil) 50 mg PO DAILY [facility] Last Admin: 10/22/18 10:26 Dose: 50 mg Multivitamins (Hexavitamin) 1 tab PEG DAILY [facility] Last Admin: 10/22/18 10:26 Dose: 1 tab Pantoprazole Sodium (Protonix Susp) 40 mg GT Q12H [facility] Last Admin: 10/22/18 20:58 Dose: 40 mg Tamsulosin HCl (Flomax) 0.4 mg PEG DAILY [facility] Last Admin: 10/22/18 10:26 Dose: 0.4 mg Vitamin A (Vitamin A & D Oint Ud Foilpak) 0.5 ea TOP BID [facility] Last Admin: 10/22/18 17:16 Dose: 0.5 ea - Labs Labs: 10/23/18 06:03 10/23/18 06:06 PT 13.3 SECONDS (9.7-12.2) H 10/23/18 06:05 INR 1.2 10/23/18 06:05 APTT 23 SECONDS (21-34) 10/02/18 06:10 - Head Exam Head Exam: ATRAUMATIC, NORMOCEPHALIC - Eye Exam Eye Exam: EOMI, Normal appearance - ENT Exam ENT Exam: Mucous Membranes Moist - Neck Exam Additional comments: trach in place - Respiratory Exam Respiratory Exam: Decreased Breath Sounds. absent: Rhonchi, Wheezes Additional comments: Trach, on vent - Cardiovascular Exam Cardiovascular Exam: REGULAR RHYTHM, +S1, +S2 - GI/Abdominal Exam GI & Abdominal Exam: Soft, Normal Bowel Sounds. absent: Tenderness - Extremities Exam Extremities Exam: absent: Pedal Edema, Tenderness - Neurological Exam Neurological Exam: Awake. absent: Alert, Oriented x3 - Psychiatric Exam Psychiatric exam: Flat Affect - Skin Skin Exam: Dry, Intact Assessment and Plan - Assessment and Plan (Free Text) Assessment: 53f initially admitted on 07/07/18 for cough and malaise x 2-3 weeks. Recurrent Pleural Effusions -Stable, Afebrile, Off Abx - S/p thoracentesis 10/20/18 with IR, without pigtail placement. --CXR s/p procedure showing significantly improved R-sided effusion. However, repeat CXR on 10/22 worsened again (see reports below) -CXR on 10/13/18 showed Interval significant improvement in right pleural effusion versus pulmonary edema. No pneumothorax. Worsening left pleural effusion versus pulmonary edema and redemonstration of loculated effusion along the left lateral chest wall. Stable position of the tracheostomy tube (see full report)---As patient keeps developing pleural effusions, patient may benefit from pigtail catheter -Continue Duonebs Q4H [facility] with mucomist -Infectious disease, Dr Brock on consult, help appreciated -Imaging: - Chest XR 10/01: Interval development of pleural effusions with loculated component along the right lateral chest wall. Moderate pulmonary venous congestion. Underlying pulmonary edema especially in the right lung is also a consideration. Follow up after medical management is recommended to ensure complete resolution. - Chest XR 10/04: Potential pulmonary vascular congestion vs infiltrates with possible trace left pleural effusion. Improved from 10/02 - Chest XR 10/05: Showing increased pulmonary vascular congestion compared to 10/04 - Chest XR 10/09: showing significant congestion - CXR 10/10: Less dense consolidation right lung base-improved aeration/less passive compressive atelectasis inferred and/or partial clearing of some right pleural fluid. No pneumothorax seen. Extensive bilateral pleural effusions still persist. Less now on the right than before. - CXR 10/17 - Worsening pleural effusions bilaterally. Significant pleural effusion on the left. - CXR 10/20 - There is opacification left mid to lower lung field secondary to large left-sided effusion. Presumed left basilar atelectasis however infiltrate not excluded. Improved right-sided effusion and atelectasis - CXR 10/22 - In situ tracheostomy tube in good position. Right-sided PICC line terminates in the right axillary region. Further opacification both hemithoraces left greater than right. Findings likely represent large layering effusions and some combination of atelectasis and or infiltrate. -right thoracentesis, done 10/13/18: 1000cc of clear fluid were aspirated VRE + Urine -Hernandes placed with CBI -Afebrile sice 10/14 (blood cultures repeated) -Urine Cx 09/30 +VRE -Blood Cx 10/14 show no growth x 5 days -Tylenol prn fever Hypotension - Monitor albumin, administer prn doses - Midodrine increased to 10 mg PO TID Hyperthyroidism -Methimazole 20 mg PO Q8 Prophylactic measure * Protonix 40mg GT BID * Lactobacillus 1 cap PO BID * MVI 1x/day * Vitamin C 1,000 NG 1x/day * s/p Trach and Peg * SCD on Right and contraindicated on Left due to DVT * Peg feedings * Pulmcar 40cc/hr * patient had frequent BMs on prior formula; no diarrhea; we have spoken with dietary to change it on 08/19/18 * PICC Line d/c due to coiling * Patient has midline access * Note: speak to patient in [place] to assess neurologic status-->she does follow sometimes * s/p bronchoscopy 08/23 * s/p IVC filter 08/23 * s/p LP 09/15 * s/p right chest tube insertion 09/06; removed 09/15 * patient is FULL CODE * Provigil 50mg PO daily started to promote wakefulness during the day. * Social work note (08/09/18): patient is undocumented, has not health insurance, dc planning will be at home with During this prolonged hospital stay, patient treated for the following medical problems. See prior notes for details. 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 Low TSH, and Free T4 Thyroid Storm -Anemia Likely Secondary to Chronic Diseases Dysfunctional uterine bleeding -Vitamin D deficiency -Thrombocytopenia -13 mm Left Adrenal Nodule -Hypernatremia -Deconditioning -Tardive Dyskinesia Disposition: PT/OT. Possible chest tube placement for worsening pleural effusions. Assessment and Plan d/w Dr. Merry Weinberg, PGY-1 <[place] Nesbitt - Last Filed: 10/23/18 19:19> Objective - Vital Signs/Intake and Output Vital Signs (last 24 hours): Temp Pulse Resp BP Pulse Ox 98.5 F 75 16 103/60 100 10/23/18 16:00 10/23/18 16:00 10/23/18 16:00 10/23/18 16:00 10/23/18 16:00 Intake and Output: 10/23/18 10/24/18 18:59 06:59 Intake Total 530 Balance 530 - Medications Medications: Current Medications Acetylcysteine (Acetylcysteine 20%) 4 ml INH RQ4 [facility] Last Admin: 10/23/18 16:17 Dose: 4 ml Albuterol/Ipratropium (Duoneb 3 Mg/0.5 Mg (3 Ml) Ud) 3 ml INH RQ4 [facility] Ascorbic Acid (Vitamin C 500 Mg Tab) 1,000 mg NG DAILY [facility] Last Admin: 10/23/18 09:20 Dose: 1,000 mg Aspirin (Aspirin Chewable) 81 mg GT DAILY [facility] Last Admin: 10/23/18 09:20 Dose: 81 mg Dextrose (Dextrose 50% Inj) 0 ml IVP .STAT PRN; Protocol PRN Reason: Hypoglycemia Protocol Dextrose (Glutose 15) 0 gm PO .ONCE PRN; Protocol PRN Reason: Hypoglycemia Protocol Furosemide (Lasix) 20 mg IVP ONCE PRN PRN Reason: PLEURAL EFFUSION Last Admin: 10/21/18 21:30 Dose: 20 mg Glucagon (Glucagen Diagnostic Kit) 0 mg IM .STAT PRN; Protocol PRN Reason: Hypoglycemia Protocol Insulin Aspart (Novolog) 0 unit SC Q12H [facility]; Protocol Last Admin: 10/23/18 13:11 Dose: 2 u Methimazole (Tapazole) 20 mg PO Q8 [facility] Last Admin: 10/23/18 13:10 Dose: 20 mg Midodrine (Proamatine) 10 mg PO TID [facility] Last Admin: 10/23/18 17:19 Dose: 10 mg Modafinil (Provigil) 50 mg PO DAILY [facility] Last Admin: 10/23/18 09:20 Dose: 50 mg Multivitamins (Hexavitamin) 1 tab PEG DAILY [facility] Last Admin: 10/23/18 09:20 Dose: 1 tab Pantoprazole Sodium (Protonix Susp) 40 mg GT Q12H [facility] Last Admin: 10/23/18 09:20 Dose: 40 mg Tamsulosin HCl (Flomax) 0.4 mg PEG DAILY [facility] Last Admin: 10/23/18 09:20 Dose: 0.4 mg Vitamin A (Vitamin A & D Oint Ud Foilpak) 0.5 ea TOP BID [facility] Last Admin: 10/23/18 17:20 Dose: 0.5 ea - Labs Labs: 10/23/18 06:03 10/23/18 06:06 PT 13.3 SECONDS (9.7-12.2) H 10/23/18 06:05 INR 1.2 10/23/18 06:05 APTT 23 SECONDS (21-34) 10/02/18 06:10 Attending/Attestation - Attestation I have personally seen and examined this patient.: Yes I have fully participated in the care of the patient.: Yes I have reviewed all pertinent clinical information, including history, physical exam and plan: Yes Notes (Text): 10/23/18 19:11 Patient was seen and examined at 12:45 PM Care of this patient was gone over with resident Dr. Weinberg. CT Chest shows extensive pleural effusions. Will speak with Spray Gun Repairer Dr. Lozada on 10/24/18 to see if chest tube vs pigtail catheter can be placed. Urine Culture shows VRE and Psuedomonas. As there are NO fevers and blood pressure is stable, I think that urine could possibly be colonized with these bacteria. Should the drainage from the pending chest tube/pigtail prove to be infectious in nature then will start antibiotics. Spoke at length with who was at bedside at time of exam that again prognosis was poor and reiterated to him that patient likely had anoxic brain injury from prior code blues. He stated that he was still hopefull that she woul d recover. [place] Nesbitt D.O.
[2018-10-23] MEDS: Lactobacillus Acidophilus 500 MU Cap GT SCH ×2 (09:20→17:19)
[2018-10-23] MEDS: Pantoprazole 40 mg Susp UD GT SCH ×2 (09:20→22:02)
[2018-10-23] MEDS: Multiple Vitamins Tab PEG SCH (09:20)
[2018-10-23] MEDS: Modafinil 50 MG TAB PO SCH (09:20)
[2018-10-23] MEDS: Vitamins A & D Oint UD Foilpak TOP SCH ×2 (09:21→17:20)
--- NOTE | 2018-10-23 13:05 | CT ---
Date of service: 10/23/2018 CT chest without IV contrast Indication: pleural effusion Technique: Contiguous axial images were obtained through the chest without intravenous contrast enhancement. Sagittal and coronal reconstructions were generated and reviewed. This CT exam was performed using 1 or more of the following dose reduction techniques: Automated exposure control, adjustment of the MAA and/or kV according to patient size, and/or use of iterative reconstruction technique. Radiation dose (DLP): 604.46 MGy-cm. Comparison: Chest x-ray performed 10/22/18, chest CT performed 09/05/18 Findings: Patient unable to elevate arms for the examination with resultant artifact. Tracheostomy tube. Enlarged heterogeneous partially imaged thyroid gland. The noncontrast mediastinal and hilar vascular structures appear grossly unremarkable. Trace pericardial effusion. Borderline cardiomegaly. Large bilateral pleural effusions and associated consolidations. No pneumothorax. Limited visualization of the noncontrast upper abdomen: IVC filter. Bilateral renal cysts. Small perisplenic ascites. Small perihepatic ascites. Pancreatic atrophy. Probable tiny gallstone. Indeterminate 13 mm left upper lobe nodule appears to arise from the adrenal gland, indeterminate. Mild degenerative changes. Impression: Large bilateral pleural effusions and associated consolidations. Trace pericardial effusion. Borderline cardiomegaly. Enlarged heterogeneous partially imaged thyroid gland. Tracheostomy tube. Limited visualization of the noncontrast upper abdomen: IVC filter. Bilateral renal cysts. Small perihepatic and perisplenic ascites. Pancreatic atrophy. Probable tiny gallstone. Indeterminate 13 mm left upper lobe nodule appears to arise from the adrenal gland, indeterminate.
--- NOTE | 2018-10-23 15:58 | CP.PCM.PN ---
Subjective - Date & Time of Evaluation Date of Evaluation: 10/23/18 Time of Evaluation: 08:00 - Subjective Subjective: arousable confused nad Objective - Vital Signs/Intake and Output Vital Signs (last 24 hours): Temp Pulse Resp BP Pulse Ox 97.7 F 72 16 102/57 L 100 10/23/18 12:00 10/23/18 12:00 10/23/18 12:00 10/23/18 12:00 10/23/18 12:00 Intake and Output: 10/23/18 10/23/18 06:59 18:59 Intake Total 290 Balance 290 - Medications Medications: Current Medications Acetylcysteine (Acetylcysteine 20%) 4 ml INH RQ4 [facility] Last Admin: 10/23/18 13:53 Dose: 4 ml Albuterol/Ipratropium (Duoneb 3 Mg/0.5 Mg (3 Ml) Ud) 3 ml INH Q4H [facility] Last Admin: 10/23/18 13:54 Dose: Not Given Ascorbic Acid (Vitamin C 500 Mg Tab) 1,000 mg NG DAILY [facility] Last Admin: 10/23/18 09:20 Dose: 1,000 mg Aspirin (Aspirin Chewable) 81 mg GT DAILY [facility] Last Admin: 10/23/18 09:20 Dose: 81 mg Dextrose (Dextrose 50% Inj) 0 ml IVP .STAT PRN; Protocol PRN Reason: Hypoglycemia Protocol Dextrose (Glutose 15) 0 gm PO .ONCE PRN; Protocol PRN Reason: Hypoglycemia Protocol Furosemide (Lasix) 20 mg IVP ONCE PRN PRN Reason: PLEURAL EFFUSION Last Admin: 10/21/18 21:30 Dose: 20 mg Glucagon (Glucagen Diagnostic Kit) 0 mg IM .STAT PRN; Protocol PRN Reason: Hypoglycemia Protocol Insulin Aspart (Novolog) 0 unit SC Q12H [facility]; Protocol Last Admin: 10/23/18 13:11 Dose: 2 u Lactobacillus Acidophilus (Bacid Acidophilus) 1 cap GT BID [facility] Last Admin: 10/23/18 09:20 Dose: 1 cap Methimazole (Tapazole) 20 mg PO Q8 [facility] Last Admin: 10/23/18 13:10 Dose: 20 mg Midodrine (Proamatine) 10 mg PO TID [facility] Last Admin: 10/23/18 13:11 Dose: 10 mg Modafinil (Provigil) 50 mg PO DAILY [facility] Last Admin: 10/23/18 09:20 Dose: 50 mg Multivitamins (Hexavitamin) 1 tab PEG DAILY [facility] Last Admin: 10/23/18 09:20 Dose: 1 tab Pantoprazole Sodium (Protonix Susp) 40 mg GT Q12H [facility] Last Admin: 10/23/18 09:20 Dose: 40 mg Tamsulosin HCl (Flomax) 0.4 mg PEG DAILY [facility] Last Admin: 10/23/18 09:20 Dose: 0.4 mg Vitamin A (Vitamin A & D Oint Ud Foilpak) 0.5 ea TOP BID [facility] Last Admin: 10/23/18 09:21 Dose: 0.5 ea - Labs Labs: 10/23/18 06:03 10/23/18 06:06 PT 13.3 SECONDS (9.7-12.2) H 10/23/18 06:05 INR 1.2 10/23/18 06:05 APTT 23 SECONDS (21-34) 10/02/18 06:10 - Constitutional Appears: Non-toxic, Chronically Ill - Head Exam Head Exam: NORMOCEPHALIC - Eye Exam Eye Exam: absent: Scleral icterus - ENT Exam ENT Exam: Mucous Membranes Dry - Neck Exam Neck Exam: absent: Lymphadenopathy - Respiratory Exam Respiratory Exam: Decreased Breath Sounds - Cardiovascular Exam Cardiovascular Exam: REGULAR RHYTHM - GI/Abdominal Exam GI & Abdominal Exam: Distended, Soft Assessment and Plan (1) NEHA (acute kidney injury) Status: Acute (2) Acute renal failure Status: Acute (3) Acute respiratory failure Status: Acute (4) Aspiration pneumonia Status: Acute (5) Septic shock Status: Acute (6) Urinary tract infection Status: Acute (7) Diabetes mellitus Status: Chronic (8) Anoxic brain damage Status: Acute
--- NOTE | 2018-10-23 21:42 | CP.PCM.PN ---
Subjective - Date & Time of Evaluation Date of Evaluation: 10/23/18 Time of Evaluation: 07:00 - Subjective Subjective: no fever or leukocytosis 'remains vent dependantg but in NAD 'hjas recurrent effusion to be drained urine c/s + for VRE and pseudomonas would hold off on rx for now Objective - Vital Signs/Intake and Output Vital Signs (last 24 hours): Temp Pulse Resp BP Pulse Ox 98.5 F 95 H 18 99/52 L 98 10/23/18 20:00 10/23/18 20:00 10/23/18 20:00 10/23/18 20:00 10/23/18 20:00 Intake and Output: 10/23/18 10/24/18 18:59 06:59 Intake Total 530 Output Total 300 Balance 230 - Medications Medications: Current Medications Acetylcysteine (Acetylcysteine 20%) 4 ml INH RQ4 [facility] Last Admin: 10/23/18 19:24 Dose: 4 ml Albuterol/Ipratropium (Duoneb 3 Mg/0.5 Mg (3 Ml) Ud) 3 ml INH RQ4 [facility] Last Admin: 10/23/18 19:25 Dose: 3 ml Ascorbic Acid (Vitamin C 500 Mg Tab) 1,000 mg NG DAILY [facility] Last Admin: 10/23/18 09:20 Dose: 1,000 mg Aspirin (Aspirin Chewable) 81 mg GT DAILY [facility] Last Admin: 10/23/18 09:20 Dose: 81 mg Dextrose (Dextrose 50% Inj) 0 ml IVP .STAT PRN; Protocol PRN Reason: Hypoglycemia Protocol Dextrose (Glutose 15) 0 gm PO .ONCE PRN; Protocol PRN Reason: Hypoglycemia Protocol Furosemide (Lasix) 20 mg IVP ONCE PRN PRN Reason: PLEURAL EFFUSION Last Admin: 10/21/18 21:30 Dose: 20 mg Glucagon (Glucagen Diagnostic Kit) 0 mg IM .STAT PRN; Protocol PRN Reason: Hypoglycemia Protocol Insulin Aspart (Novolog) 0 unit SC Q12H [facility]; Protocol Last Admin: 10/23/18 13:11 Dose: 2 u Methimazole (Tapazole) 20 mg PO Q8 [facility] Last Admin: 10/23/18 13:10 Dose: 20 mg Midodrine (Proamatine) 10 mg PO TID [facility] Last Admin: 10/23/18 17:19 Dose: 10 mg Modafinil (Provigil) 50 mg PO DAILY [facility] Last Admin: 10/23/18 09:20 Dose: 50 mg Multivitamins (Hexavitamin) 1 tab PEG DAILY [facility] Last Admin: 10/23/18 09:20 Dose: 1 tab Pantoprazole Sodium (Protonix Susp) 40 mg GT Q12H [facility] Last Admin: 10/23/18 09:20 Dose: 40 mg Tamsulosin HCl (Flomax) 0.4 mg PEG DAILY [facility] Last Admin: 10/23/18 09:20 Dose: 0.4 mg Vitamin A (Vitamin A & D Oint Ud Foilpak) 0.5 ea TOP BID [facility] Last Admin: 10/23/18 17:20 Dose: 0.5 ea - Labs Labs: 10/23/18 06:03 10/23/18 06:06 PT 13.3 SECONDS (9.7-12.2) H 10/23/18 06:05 INR 1.2 10/23/18 06:05 APTT 23 SECONDS (21-34) 10/02/18 06:10 Assessment and Plan (1) NEHA (acute kidney injury) Status: Acute (2) Acute renal failure Status: Acute (3) Acute respiratory failure Status: Acute (4) Aspiration pneumonia Status: Acute (5) Septic shock Status: Acute (6) Urinary tract infection Status: Acute (7) Diabetes mellitus Status: Chronic (8) Anoxic brain damage Status: Acute
[2018-10-24] MEDS: Albuterol-Ipratrop 3 mg / 0.5 (3 ml) UD INH SCH ×6 (00:15→20:28)
[2018-10-24] MEDS: Acetylcysteine 20% Inhal Soln (4ml) INH SCH ×6 (00:15→20:28)
[2018-10-24] MEDS: (Novolog) Insulin Aspart, Recombinant 100 u/ml 10 ml vial SC SCH ×2 (00:26→12:58)
[2018-10-24 06:13] LABS: HEMOGLOBIN 8.4 g/dL (11.0-16.0); MEAN CELL VOLUME 92.1 fL (81.0-99.0); MEAN CORPUSCULAR HGB CONC 32.5 g/dL (33.0-37.0); MEAN PLATELET VOLUME 8.4 fL (7.2-11.7); RBC 2.8 Mil/uL (3.80-5.20); RED CELL DISTRIBUTION WIDTH 19.6 % (11.5-14.5); WHITE BLOOD COUNT 11.4 K/uL (4.8-10.8)
[2018-10-24 06:51] LABS: ALB/GLOB RATIO 0.8 (1.0-2.1); ALBUMIN 2.8 g/dL (3.5-5.0); ALT/SGPT 15 U/L (9-52); AST/SGOT 29 U/L (14-36); BLOOD UREA NITROGEN 42 mg/dL (7-17); CALCIUM 7.9 mg/dl (8.6-10.4); GFR NON-AFRICAN AMERICAN > 60
[2018-10-24] MEDS: Modafinil 50 MG TAB PO SCH (10:43)
[2018-10-24] MEDS: Pantoprazole 40 mg Susp UD GT SCH ×2 (10:43→21:39)
[2018-10-24] MEDS: Multiple Vitamins Tab PEG SCH (10:43)
[2018-10-24] MEDS: Vitamins A & D Oint UD Foilpak TOP SCH ×2 (10:43→17:38)
--- NOTE | 2018-10-24 10:45 | CP.PCM.PN ---
<Elijah Weinberg - Last Filed: 10/24/18 10:41> Subjective - Date & Time of Evaluation Date of Evaluation: 10/24/18 Time of Evaluation: 10:48 - Subjective Subjective: PGY-[address] Merry Nesbitt Patient seen and examined at bedside. No acute events overnight. Will f/u possible chest tube placement for recurrent pleural effusions. ROS unable to be obtained. No changes clinically. There has been some question as to whether patient has been attempting to mouth words. On exam today it almost appeared as though she may be forming words with her mouth. However, in reality, she makes constant motions with her mouth and this is very difficult to distinguish from an active attempt at verbalization. She does not respond to any verbal commands, with visual cues provided. Dr. Nesbitt had a discussion with Mr. Alisa adkins yesterday regarding patient's poor prognosis. We continue to hold out hope that her mental status will improve and regain some type of quality of life, however outlook appears very poor. Objective - Vital Signs/Intake and Output Vital Signs (last 24 hours): Temp Pulse Resp BP Pulse Ox 98.6 F 90 14 95/48 L 100 10/24/18 08:00 10/24/18 08:00 10/24/18 08:00 10/24/18 08:00 10/24/18 08:00 Intake and Output: 10/24/18 10/24/18 06:59 18:59 Intake Total 540 Output Total 300 Balance 240 - Medications Medications: Current Medications Acetylcysteine (Acetylcysteine 20%) 4 ml INH RQ4 [facility] Last Admin: 10/24/18 07:28 Dose: Not Given Albuterol/Ipratropium (Duoneb 3 Mg/0.5 Mg (3 Ml) Ud) 3 ml INH RQ4 [facility] Last Admin: 10/24/18 07:26 Dose: 3 ml Ascorbic Acid (Vitamin C 500 Mg Tab) 1,000 mg NG DAILY [facility] Last Admin: 10/23/18 09:20 Dose: 1,000 mg Aspirin (Aspirin Chewable) 81 mg GT DAILY [facility] Last Admin: 10/23/18 09:20 Dose: 81 mg Dextrose (Dextrose 50% Inj) 0 ml IVP .STAT PRN; Protocol PRN Reason: Hypoglycemia Protocol Dextrose (Glutose 15) 0 gm PO .ONCE PRN; Protocol PRN Reason: Hypoglycemia Protocol Furosemide (Lasix) 20 mg IVP ONCE PRN PRN Reason: PLEURAL EFFUSION Last Admin: 10/21/18 21:30 Dose: 20 mg Glucagon (Glucagen Diagnostic Kit) 0 mg IM .STAT PRN; Protocol PRN Reason: Hypoglycemia Protocol Insulin Aspart (Novolog) 0 unit SC Q12H [facility]; Protocol Last Admin: 10/24/18 00:26 Dose: 2 u Methimazole (Tapazole) 20 mg PO Q8 [facility] Last Admin: 10/24/18 05:38 Dose: 20 mg Midodrine (Proamatine) 10 mg PO TID [facility] Last Admin: 10/23/18 17:19 Dose: 10 mg Modafinil (Provigil) 50 mg PO DAILY [facility] Last Admin: 10/23/18 09:20 Dose: 50 mg Multivitamins (Hexavitamin) 1 tab PEG DAILY [facility] Last Admin: 10/23/18 09:20 Dose: 1 tab Pantoprazole Sodium (Protonix Susp) 40 mg GT Q12H [facility] Last Admin: 10/23/18 22:02 Dose: 40 mg Tamsulosin HCl (Flomax) 0.4 mg PEG DAILY [facility] Last Admin: 10/23/18 09:20 Dose: 0.4 mg Vitamin A (Vitamin A & D Oint Ud Foilpak) 0.5 ea TOP BID [facility] Last Admin: 10/23/18 17:20 Dose: 0.5 ea - Labs Labs: 10/24/18 06:07 10/24/18 06:07 PT 13.3 SECONDS (9.7-12.2) H 10/23/18 06:05 INR 1.2 10/23/18 06:05 APTT 23 SECONDS (21-34) 10/02/18 06:10 - Constitutional Appears: Non-toxic, No Acute Distress - Head Exam Head Exam: ATRAUMATIC, NORMOCEPHALIC - Eye Exam Eye Exam: EOMI - ENT Exam ENT Exam: Mucous Membranes Moist, Normal Exam - Neck Exam Additional comments: trach - Respiratory Exam Respiratory Exam: Decreased Breath Sounds. absent: Rhonchi, Wheezes - Cardiovascular Exam Cardiovascular Exam: REGULAR RHYTHM, +S1, +S2 - GI/Abdominal Exam GI & Abdominal Exam: Soft, Normal Bowel Sounds Additional comments: peg - Extremities Exam Extremities Exam: absent: Pedal Edema, Tenderness - Neurological Exam Neurological Exam: Awake. absent: Alert, Oriented x3 - Psychiatric Exam Psychiatric exam: Flat Affect - Skin Skin Exam: Dry, Intact Assessment and Plan - Assessment and Plan (Free Text) Assessment: 53f initially admitted on 07/07/18 for cough and malaise x 2-3 weeks. Recurrent Pleural Effusions -Stable, Afebrile, Off Abx - S/p thoracentesis 10/20/18 with IR, without pigtail placement. --CXR s/p procedure showing significantly improved R-sided effusion. However, repeat CXR on 10/22 worsened again (see reports below) -CXR on 10/13/18 showed Interval significant improvement in right pleural effusion versus pulmonary edema. No pneumothorax. Worsening left pleural effusion versus pulmonary edema and redemonstration of loculated effusion along the left lateral chest wall. Stable position of the tracheostomy tube (see full report)---As patient keeps developing pleural effusions, patient may benefit from pigtail catheter -Continue Duonebs Q4H [facility] with mucomist -Infectious disease, Dr Brock on consult, help appreciated -Imaging: - Chest XR 10/01: Interval development of pleural effusions with loculated component along the right lateral chest wall. Moderate pulmonary venous congestion. Underlying pulmonary edema especially in the right lung is also a consideration. Follow up after medical management is recommended to ensure complete resolution. - Chest XR 10/04: Potential pulmonary vascular congestion vs infiltrates with possible trace left pleural effusion. Improved from 10/02 - Chest XR 10/05: Showing increased pulmonary vascular congestion compared to 10/04 - Chest XR 10/09: showing significant congestion - CXR 10/10: Less dense consolidation right lung base-improved aeration/less passive compressive atelectasis inferred and/or partial clearing of some right pleural fluid. No pneumothorax seen. Extensive bilateral pleural effusions still persist. Less now on the right than before. - CXR 10/17 - Worsening pleural effusions bilaterally. Significant pleural effusion on the left. - CXR 10/20 - There is opacification left mid to lower lung field secondary to large left-sided effusion. Presumed left basilar atelectasis however infiltrate not excluded. Improved right-sided effusion and atelectasis - CXR 10/22 - In situ tracheostomy tube in good position. Right-sided PICC line terminates in the right axillary region. Further opacification both hemithoraces left greater than right. Findings likely represent large layering effusions and some combination of atelectasis and or infiltrate. -right thoracentesis, done 10/13/18: 1000cc of clear fluid were aspirated VRE + Urine -ID followingmDr. Brock -No Abx at this time -Hernandes placed -Afebrile sice 10/14 (blood cultures repeated) -Urine Cx 09/30 +VRE -Blood Cx 10/14 show no growth x 5 days -Tylenol prn fever Hypotension - Monitor albumin, administer prn doses - Midodrine 10 mg PO TID Hyperthyroidism -Methimazole 20 mg PO Q8 Prophylactic measure * Protonix 40mg GT BID * Lactobacillus 1 cap PO BID * MVI 1x/day * Vitamin C 1,000 NG 1x/day * Trach and Peg * SCD on Right and contraindicated on Left due to DVT * Peg feedings * Pulmcar 40cc/hr * patient had frequent BMs on prior formula; no diarrhea; we have spoken with dietary to change it on 08/19/18 * PICC Line d/c due to coiling * Patient has midline access * Note: speak to patient in alexis to assess neurologic status-->she does follow sometimes * s/p bronchoscopy 08/23 * s/p IVC filter 08/23 * s/p LP 09/15 * s/p multiple thoracenteses * patient is FULL CODE * Provigil 50mg PO daily to promote wakefulness during the day. * Social work note (08/09/18): patient is undocumented, has not health insurance, dc planning will be at home with During this prolonged hospital stay, patient treated for the following medical problems. See prior notes for details. 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 Low TSH, and Free T4 Thyroid Storm -Anemia Likely Secondary to Chronic Diseases Dysfunctional uterine bleeding -Vitamin D deficiency -Thrombocytopenia -13 mm Left Adrenal Nodule -Hypernatremia -Deconditioning -Tardive Dyskinesia Disposition: PT/OT. Possible chest tube placement for worsening pleural effu sions. Assessment and plan discussed with Dr. Merry Joiner, PGY-1 <[place] Nesbitt - Last Filed: 11/01/18 19:03> Objective - Vital Signs/Intake and Output Vital Signs (last 24 hours): Temp Pulse Resp BP Pulse Ox 97.4 F L 89 18 107/54 L 100 11/01/18 16:00 11/01/18 16:00 11/01/18 16:00 11/01/18 16:00 11/01/18 16:00 Intake and Output: 11/01/18 11/02/18 18:59 06:59 Intake Total 2285 Output Total 525 Balance 1760 - Medications Medications: Current Medications Acetylcysteine (Acetylcysteine 20%) 4 ml INH RQ4 [facility] Last Admin: 11/01/18 16:00 Dose: Not Given Albuterol/Ipratropium (Duoneb 3 Mg/0.5 Mg (3 Ml) Ud) 3 ml INH RQ4 [facility] Last Admin: 11/01/18 16:00 Dose: Not Given Ascorbic Acid (Vitamin C 500 Mg Tab) 1,000 mg NG DAILY [facility] Last Admin: 11/01/18 09:18 Dose: 1,000 mg Aspirin (Aspirin Chewable) 81 mg GT DAILY [facility] Last Admin: 11/01/18 09:18 Dose: 81 mg Dextrose (Dextrose 50% Inj) 0 ml IVP .STAT PRN; Protocol PRN Reason: Hypoglycemia Protocol Dextrose (Glutose 15) 0 gm PO .ONCE PRN; Protocol PRN Reason: Hypoglycemia Protocol Glucagon (Glucagen Diagnostic Kit) 0 mg IM .STAT PRN; Protocol PRN Reason: Hypoglycemia Protocol Cefepime HCl 1 gm/ Dextrose 50 mls @ 100 mls/hr IVPB Q12H [facility]; Protocol Last Admin: 11/01/18 08:41 Dose: 100 mls/hr Sodium Chloride (Sodium Chloride 0.9%) 1,000 mls @ 75 mls/hr IV .[id number] [facility] Last Admin: 11/01/18 05:58 Dose: 75 mls/hr Lactobacillus Acidophilus (Bacid Acidophilus) 1 cap PO BID [facility] Last Admin: 11/01/18 09:23 Dose: 1 cap Methimazole (Tapazole) 10 mg PO Q8 [facility] Last Admin: 11/01/18 05:57 Dose: 10 mg Metoclopramide HCl (Reglan) 10 mg IVP Q12H [facility] Last Admin: 11/01/18 08:41 Dose: 10 mg Midodrine (Proamatine) 10 mg PO TID [facility] Last Admin: 11/01/18 17:42 Dose: 10 mg Modafinil (Provigil) 50 mg PO DAILY [facility] Last Admin: 11/01/18 09:21 Dose: 50 mg Multivitamins (Hexavitamin) 1 tab PEG DAILY [facility] Last Admin: 11/01/18 09:18 Dose: 1 tab Pantoprazole Sodium (Protonix Susp) 40 mg GT Q12H [facility] Last Admin: 11/01/18 08:41 Dose: 40 mg Polyethylene Glycol (Miralax) 17 gm PO BID [facility] Last Admin: 11/01/18 17:42 Dose: 17 gm Simethicone (Mylicon Chew Tab) 80 mg PO QID [facility] Last Admin: 11/01/18 17:42 Dose: 80 mg Tamsulosin HCl (Flomax) 0.4 mg PEG DAILY [facility] Last Admin: 11/01/18 09:19 Dose: 0.4 mg Vitamin A (Vitamin A & D Oint Ud Foilpak) 0.5 ea TOP DAILY [facility] Last Admin: 11/01/18 10:14 Dose: Not Given - Labs Labs: 11/01/18 06:13 11/01/18 06:13 PT 13.3 SECONDS (9.7-12.2) H 10/23/18 06:05 INR 1.2 10/23/18 06:05 APTT 23 SECONDS (21-34) 10/02/18 06:10 Attending/Attestation - Attestation I have personally seen and examined this patient.: Yes I have fully participated in the care of the patient.: Yes I have reviewed all pertinent clinical information, including history, physical exam and plan: Yes Notes (Text): 11/01/18 19:03 This is a late entry. Care of this patient was gone over with resident Dr. Weinberg. [place] Nesbitt D.O.
[2018-10-25] MEDS: Acetylcysteine 20% Inhal Soln (4ml) INH SCH ×6 (06:51→23:46)
[2018-10-25] MEDS: Albuterol-Ipratrop 3 mg / 0.5 (3 ml) UD INH SCH ×6 (06:52→23:46)
--- NOTE | 2018-10-25 07:09 | CP.PCM.PN ---
<Elijah Weinberg - Last Filed: 10/25/18 07:05> Subjective - Date & Time of Evaluation Date of Evaluation: 10/25/18 Time of Evaluation: 07:09 - Subjective Subjective: PGY-[address] Merry Nesbitt Patient seen and examined at bedside. No acute events overnight. Remains on vent with trach in place. Plan for thoracentesis with pigtail placement today with Dr. Lozada, bruce f/u. ROS unable to be obtained. Objective - Vital Signs/Intake and Output Vital Signs (last 24 hours): Temp Pulse Resp BP Pulse Ox 98.2 F 89 16 103/57 L 100 10/25/18 04:00 10/25/18 04:00 10/25/18 04:00 10/25/18 04:00 10/25/18 04:00 Intake and Output: 10/25/18 10/25/18 06:59 18:59 Intake Total 540 Output Total 600 Balance -60 - Medications Medications: Current Medications Acetylcysteine (Acetylcysteine 20%) 4 ml INH RQ4 [facility] Last Admin: 10/25/18 06:51 Dose: 4 ml Albuterol/Ipratropium (Duoneb 3 Mg/0.5 Mg (3 Ml) Ud) 3 ml INH RQ4 [facility] Last Admin: 10/25/18 06:52 Dose: 3 ml Ascorbic Acid (Vitamin C 500 Mg Tab) 1,000 mg NG DAILY [facility] Last Admin: 10/24/18 10:42 Dose: 1,000 mg Aspirin (Aspirin Chewable) 81 mg GT DAILY [facility] Last Admin: 10/24/18 10:43 Dose: 81 mg Dextrose (Dextrose 50% Inj) 0 ml IVP .STAT PRN; Protocol PRN Reason: Hypoglycemia Protocol Dextrose (Glutose 15) 0 gm PO .ONCE PRN; Protocol PRN Reason: Hypoglycemia Protocol Furosemide (Lasix) 20 mg IVP ONCE PRN PRN Reason: PLEURAL EFFUSION Last Admin: 10/21/18 21:30 Dose: 20 mg Glucagon (Glucagen Diagnostic Kit) 0 mg IM .STAT PRN; Protocol PRN Reason: Hypoglycemia Protocol Methimazole (Tapazole) 20 mg PO Q8 [facility] Last Admin: 10/25/18 05:35 Dose: 20 mg Midodrine (Proamatine) 10 mg PO TID [facility] Last Admin: 01/22/19 17:38 Dose: 10 mg Modafinil (Provigil) 50 mg PO DAILY [facility] Last Admin: 10/24/18 10:43 Dose: 50 mg Multivitamins (Hexavitamin) 1 tab PEG DAILY [facility] Last Admin: 10/24/18 10:43 Dose: 1 tab Pantoprazole Sodium (Protonix Susp) 40 mg GT Q12H [facility] Last Admin: 10/24/18 21:39 Dose: 40 mg Tamsulosin HCl (Flomax) 0.4 mg PEG DAILY [facility] Last Admin: 10/24/18 10:43 Dose: 0.4 mg Vitamin A (Vitamin A & D Oint Ud Foilpak) 0.5 ea TOP BID [facility] Last Admin: 10/24/18 17:38 Dose: 0.5 ea - Labs Labs: 10/24/18 06:07 10/24/18 06:07 PT 13.3 SECONDS (9.7-12.2) H 10/23/18 06:05 INR 1.2 10/23/18 06:05 APTT 23 SECONDS (21-34) 10/02/18 06:10 - Constitutional Appears: Non-toxic, No Acute Distress - Head Exam Head Exam: ATRAUMATIC, NORMOCEPHALIC - Eye Exam Eye Exam: EOMI, Normal appearance - ENT Exam ENT Exam: Mucous Membranes Moist - Neck Exam Additional comments: trach - Respiratory Exam Respiratory Exam: Decreased Breath Sounds. absent: Rales, Wheezes Additional comments: trach, on vent - Cardiovascular Exam Cardiovascular Exam: REGULAR RHYTHM, +S1, +S2 - GI/Abdominal Exam GI & Abdominal Exam: Soft, Normal Bowel Sounds - Extremities Exam Extremities Exam: absent: Pedal Edema, Tenderness - Neurological Exam Neurological Exam: Alert, Awake, Oriented x3 - Psychiatric Exam Psychiatric exam: Flat Affect - Skin Skin Exam: Dry, Intact Assessment and Plan - Assessment and Plan (Free Text) Assessment: 53f initially admitted on 07/07/18 for cough and malaise x 2-3 weeks. Recurrent Pleural Effusions -Stable, Afebrile, Off Abx - S/p thoracentesis 10/20/18 with IR, without pigtail placement. --CXR s/p procedure showing significantly improved R-sided effusion. However, repeat CXR on 10/22 worsened again (see reports below) -CXR on 10/13/18 showed Interval significant improvement in right pleural effusion versus pulmonary edema. No pneumothorax. Worsening left pleural effusion versus pulmonary edema and redemonstration of loculated effusion along the left lateral chest wall. Stable position of the tracheostomy tube (see full report)---As patient keeps developing pleural effusions, patient may benefit from pigtail catheter -Continue Duonebs Q4H [facility] with mucomist -Infectious disease, Dr Brock on consult, help appreciated -Imaging: - Chest XR 10/01: Interval development of pleural effusions with loculated component along the right lateral chest wall. Moderate pulmonary venous congestion. Underlying pulmonary edema especially in the right lung is also a consideration. Follow up after medical management is recommended to ensure complete resolution. - Chest XR 10/04: Potential pulmonary vascular congestion vs infiltrates with possible trace left pleural effusion. Improved from 10/02 - Chest XR 10/05: Showing increased pulmonary vascular congestion compared to 10/04 - Chest XR 10/09: showing significant congestion - CXR 10/10: Less dense consolidation right lung base-improved aeration/less passive compressive atelectasis inferred and/or partial clearing of some right pleural fluid. No pneumothorax seen. Extensive bilateral pleural effusions still persist. Less now on the right than before. - CXR 10/17 - Worsening pleural effusions bilaterally. Significant pleural effusion on the left. - CXR 10/20 - There is opacification left mid to lower lung field secondary to large left-sided effusion. Presumed left basilar atelectasis however infiltrate not excluded. Improved right-sided effusion and atelectasis - CXR 10/22 - In situ tracheostomy tube in good position. Right-sided PICC line terminates in the right axillary region. Further opacification both hemithoraces left greater than right. Findings likely represent large layering effusions and some combination of atelectasis and or infiltrate. -right thoracentesis, done 10/13/18: 1000cc of clear fluid were aspirated -Plan for thoracentesis with pigtail placement today with Dr. Lozada - f/u VRE + Urine -ID followingm, Dr. Brock -No Abx at this time -Hrenandes placed -Afebrile sice 10/14 (blood cultures repeated) -Urine Cx 09/30 +VRE -Blood Cx 10/14 show no growth x 5 days -Tylenol prn fever Hypotension - Monitor albumin, administer prn doses - Midodrine 10 mg PO TID Hyperthyroidism -Methimazole 20 mg PO Q8 Prophylactic measure * Protonix 40mg GT BID * Lactobacillus 1 cap PO BID * MVI 1x/day * Vitamin C 1,000 NG 1x/day * Trach and Peg * SCD on Right and contraindicated on Left due to DVT * Peg feedings * Pulmcar 40cc/hr * patient had frequent BMs on prior formula; no diarrhea; we have spoken with dietary to change it on 08/19/18 * PICC Line d/c due to coiling * Patient has midline access * Note: speak to patient in alexsi to assess neurologic status-->she does follow sometimes * s/p bronchoscopy 08/23 * s/p IVC filter 08/23 * s/p LP 09/15 * s/p multiple thoracenteses * patient is FULL CODE * Provigil 50mg PO daily to promote wakefulness during the day. * Social work note (08/09/18): patient is undocumented, has not health insurance, dc planning will be at home with During this prolonged hospital stay, patient treated for the following medical problems. See prior notes for details. 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 Low TSH, and Free T4 Thyroid Storm -Anemia Likely Secondary to Chronic Diseases Dysfunctional uterine bleeding -Vitamin D deficiency -Thrombocytopenia -13 mm Left Adrenal Nodule -Hypernatremia -Deconditioning -Tardive Dyskinesia Disposition: PT/OT. Possible chest tube placement for worsening pleural effusions. Assessment and plan discussed with Dr. Merry Joiner, PGY-1 <[place]itt - Last Filed: 11/01/18 19:02> Objective - Vital Signs/Intake and Output Vital Signs (last 24 hours): Temp Pulse Resp BP Pulse Ox 97.4 F L 89 18 107/54 L 100 11/01/18 16:00 11/01/18 16:00 11/01/18 16:00 11/01/18 16:00 11/01/18 16:00 Intake and Output: 11/01/18 11/02/18 18:59 06:59 Intake Total 2285 Output Total 525 Balance 1760 - Medications Medications: Current Medications Acetylcysteine (Acetylcysteine 20%) 4 ml INH RQ4 [facility] Last Admin: 11/01/18 16:00 Dose: Not Given Albuterol/Ipratropium (Duoneb 3 Mg/0.5 Mg (3 Ml) Ud) 3 ml INH RQ4 [facility] Last Admin: 11/01/18 16:00 Dose: Not Given Ascorbic Acid (Vitamin C 500 Mg Tab) 1,000 mg NG DAILY [facility] Last Admin: 11/01/18 09:18 Dose: 1,000 mg Aspirin (Aspirin Chewable) 81 mg GT DAILY [facility] Last Admin: 11/01/18 09:18 Dose: 81 mg Dextrose (Dextrose 50% Inj) 0 ml IVP .STAT PRN; Protocol PRN Reason: Hypoglycemia Protocol Dextrose (Glutose 15) 0 gm PO .ONCE PRN; Protocol PRN Reason: Hypoglycemia Protocol Glucagon (Glucagen Diagnostic Kit) 0 mg IM .STAT PRN; Protocol PRN Reason: Hypoglycemia Protocol Cefepime HCl 1 gm/ Dextrose 50 mls @ 100 mls/hr IVPB Q12H [facility]; Protocol Last Admin: 11/01/18 08:41 Dose: 100 mls/hr Sodium Chloride (Sodium Chloride 0.9%) 1,000 mls @ 75 mls/hr IV .[id number] [facility] Last Admin: 11/01/18 05:58 Dose: 75 mls/hr Lactobacillus Acidophilus (Bacid Acidophilus) 1 cap PO BID [facility] Last Admin: 11/01/18 09:23 Dose: 1 cap Methimazole (Tapazole) 10 mg PO Q8 [facility] Last Admin: 11/01/18 05:57 Dose: 10 mg Metoclopramide HCl (Reglan) 10 mg IVP Q12H [facility] Last Admin: 11/01/18 08:41 Dose: 10 mg Midodrine (Proamatine) 10 mg PO TID [facility] Last Admin: 11/01/18 17:42 Dose: 10 mg Modafinil (Provigil) 50 mg PO DAILY [facility] Last Admin: 11/01/18 09:21 Dose: 50 mg Multivitamins (Hexavitamin) 1 tab PEG DAILY [facility] Last Admin: 11/01/18 09:18 Dose: 1 tab Pantoprazole Sodium (Protonix Susp) 40 mg GT Q12H [facility] Last Admin: 11/01/18 08:41 Dose: 40 mg Polyethylene Glycol (Miralax) 17 gm PO BID [facility] Last Admin: 11/01/18 17:42 Dose: 17 gm Simethicone (Mylicon Chew Tab) 80 mg PO QID [facility] Last Admin: 11/01/18 17:42 Dose: 80 mg Tamsulosin HCl (Flomax) 0.4 mg PEG DAILY [facility] Last Admin: 11/01/18 09:19 Dose: 0.4 mg Vitamin A (Vitamin A & D Oint Ud Foilpak) 0.5 ea TOP DAILY [facility] Last Admin: 11/01/18 10:14 Dose: Not Given - Labs Labs: 11/01/18 06:13 11/01/18 06:13 PT 13.3 SECONDS (9.7-12.2) H 10/23/18 06:05 INR 1.2 10/23/18 06:05 APTT 23 SECONDS (21-34) 10/02/18 06:10 Attending/Attestation - Attestation I have personally seen and examined this patient.: Yes I have fully participated in the care of the patient.: Yes I have reviewed all pertinent clinical information, including history, physical exam and plan: Yes Notes (Text): 11/01/18 19:02 This is a late entry. Care of this patient was gone over with resident Dr. Weinberg. [place] N[place]itt D.O.
[2018-10-25] MEDS: Vitamins A & D Oint UD Foilpak TOP SCH ×2 (10:29→19:01)
[2018-10-25] MEDS: Modafinil 50 MG TAB PO SCH (10:29)
[2018-10-25] MEDS: Pantoprazole 40 mg Susp UD GT SCH ×2 (10:30→21:58)
[2018-10-25] MEDS: Multiple Vitamins Tab PEG SCH (10:30)
[2018-10-26] MEDS: Albuterol-Ipratrop 3 mg / 0.5 (3 ml) UD INH SCH ×5 (04:05→19:37)
[2018-10-26] MEDS: Acetylcysteine 20% Inhal Soln (4ml) INH SCH ×6 (04:05→19:37)
[2018-10-26 06:07] LABS: HEMOGLOBIN 8.3 g/dL (11.0-16.0); MEAN CELL VOLUME 92.6 fL (81.0-99.0); MEAN CORPUSCULAR HEMOGLOBIN 28.7 pg (27.0-31.0); MEAN PLATELET VOLUME 8.1 fL (7.2-11.7); RBC 2.89 Mil/uL (3.80-5.20); WHITE BLOOD COUNT 15.3 K/uL (4.8-10.8)
[2018-10-26 06:26] LABS: ALB/GLOB RATIO 0.8 (1.0-2.1); ALBUMIN 2.8 g/dL (3.5-5.0); ALT/SGPT 16 U/L (9-52); AST/SGOT 29 U/L (14-36); BLOOD UREA NITROGEN 40 mg/dL (7-17); CALCIUM 7.8 mg/dl (8.6-10.4); GFR NON-AFRICAN AMERICAN > 60
--- NOTE | 2018-10-26 08:07 | RAD ---
Date of service: 10/26/2018 HISTORY: R/O aspiration COMPARISON: Portable chest 10/22/2018. FINDINGS: LUNGS: Tracheostomy tube unchanged in position as well as midline right PICC insertion. Underlying atelectasis or infiltrates are likely at the bilateral bases with limited air bronchograms identified superimposed by stable pleural effusions which remain greater the left and right sides. No pneumothorax bilaterally. PLEURA: As above. CARDIOVASCULAR: Calcific atherosclerotic changes are seen related to the thoracic aorta. Cardiac size remains obscured by effusions bilaterally. No definite pulmonary vascular congestion. OSSEOUS STRUCTURES: No significant abnormalities. VISUALIZED UPPER ABDOMEN: Normal. OTHER FINDINGS: None. IMPRESSION: Persistent bilateral pleural effusions remain greater the left and right with underlying atelectasis and infiltrates identified at the bilateral bases.
--- NOTE | 2018-10-26 09:40 | CP.PCM.PN ---
<Elijah Weinberg - Last Filed: 10/26/18 13:33> Subjective - Date & Time of Evaluation Date of Evaluation: 10/26/18 Time of Evaluation: 13:23 - Subjective Subjective: PGY-[address] Merry Nesbitt Patient seen and examined at bedside. No acute events overnight. We are still planning for placement of Pleur-ex vs pigtail, will follow up. ROS unable to be obtained. Objective - Vital Signs/Intake and Output Vital Signs (last 24 hours): Temp Pulse Resp BP Pulse Ox 98.9 F 90 17 98/59 L 100 10/26/18 04:00 10/26/18 04:00 10/26/18 04:00 10/26/18 04:00 10/26/18 04:00 Intake and Output: 10/26/18 10/26/18 06:59 18:59 Intake Total 400 Output Total 600 Balance -200 - Medications Medications: Current Medications Acetylcysteine (Acetylcysteine 20%) 4 ml INH RQ4 [facility] Last Admin: 10/26/18 07:48 Dose: 4 ml Albuterol/Ipratropium (Duoneb 3 Mg/0.5 Mg (3 Ml) Ud) 3 ml INH RQ4 [facility] Last Admin: 10/26/18 07:48 Dose: 3 ml Ascorbic Acid (Vitamin C 500 Mg Tab) 1,000 mg NG DAILY [facility] Last Admin: 10/25/18 10:29 Dose: 1,000 mg Aspirin (Aspirin Chewable) 81 mg GT DAILY [facility] Last Admin: 10/25/18 10:30 Dose: 81 mg Dextrose (Dextrose 50% Inj) 0 ml IVP .STAT PRN; Protocol PRN Reason: Hypoglycemia Protocol Dextrose (Glutose 15) 0 gm PO .ONCE PRN; Protocol PRN Reason: Hypoglycemia Protocol Furosemide (Lasix) 20 mg IVP ONCE PRN PRN Reason: PLEURAL EFFUSION Last Admin: 10/21/18 21:30 Dose: 20 mg Glucagon (Glucagen Diagnostic Kit) 0 mg IM .STAT PRN; Protocol PRN Reason: Hypoglycemia Protocol Methimazole (Tapazole) 20 mg PO Q8 [facility] Last Admin: 10/26/18 05:02 Dose: 20 mg Midodrine (Proamatine) 10 mg PO TID [facility] Last Admin: 10/25/18 19:00 Dose: 10 mg Modafinil (Provigil) 50 mg PO DAILY [facility] Last Admin: 10/25/18 10:29 Dose: 50 mg Multivitamins (Hexavitamin) 1 tab PEG DAILY [facility] Last Admin: 10/25/18 10:30 Dose: 1 tab Pantoprazole Sodium (Protonix Susp) 40 mg GT Q12H [facility] Last Admin: 10/25/18 21:58 Dose: 40 mg Tamsulosin HCl (Flomax) 0.4 mg PEG DAILY [facility] Last Admin: 10/25/18 10:30 Dose: 0.4 mg Vitamin A (Vitamin A & D Oint Ud Foilpak) 0.5 ea TOP BID [facility] Last Admin: 10/25/18 19:01 Dose: 0.5 ea - Labs Labs: 10/26/18 05:42 10/26/18 05:42 PT 13.3 SECONDS (9.7-12.2) H 10/23/18 06:05 INR 1.2 10/23/18 06:05 APTT 23 SECONDS (21-34) 10/02/18 06:10 - Constitutional Appears: No Acute Distress - Head Exam Head Exam: ATRAUMATIC, NORMOCEPHALIC - Eye Exam Eye Exam: EOMI - ENT Exam ENT Exam: Mucous Membranes Moist - Respiratory Exam Respiratory Exam: Decreased Breath Sounds - Cardiovascular Exam Cardiovascular Exam: REGULAR RHYTHM, +S1, +S2 - GI/Abdominal Exam GI & Abdominal Exam: Distended, Soft, Normal Bowel Sounds - Extremities Exam Extremities Exam: absent: Pedal Edema, Tenderness - Neurological Exam Neurological Exam: Awake. absent: Alert, Oriented x3 - Psychiatric Exam Psychiatric exam: Flat Affect - Skin Skin Exam: Dry, Intact Assessment and Plan - Assessment and Plan (Free Text) Assessment: 53f initially admitted on 07/07/18 for cough and malaise x 2-3 weeks. Recurrent Pleural Effusions -Stable, Afebrile, Off Abx - S/p thoracentesis 10/20/18 with IR, without pigtail placement. --CXR s/p procedure showing significantly improved R-sided effusion. However, repeat CXR on 10/22 worsened again (see reports below) -CXR on 10/13/18 showed Interval significant improvement in right pleural effusion versus pulmonary edema. No pneumothorax. Worsening left pleural effusion versus pulmonary edema and redemonstration of loculated effusion along the left lateral chest wall. Stable position of the tracheostomy tube (see full report)---As patient keeps developing pleural effusions, patient may benefit from pigtail catheter -Continue Duonebs Q4H [facility]OLO with mucomist -Infectious disease, Dr Brock on consult, help appreciated -Imaging: - Chest XR 10/01: Interval development of pleural effusions with loculated component along the right lateral chest wall. Moderate pulmonary venous congestion. Underlying pulmonary edema especially in the right lung is also a consideration. Follow up after medical management is recommended to ensure complete resolution. - Chest XR 10/04: Potential pulmonary vascular congestion vs infiltrates with possible trace left pleural effusion. Improved from 10/02 - Chest XR 10/05: Showing increased pulmonary vascular congestion compared to 10/04 - Chest XR 10/09: showing significant congestion - CXR 10/10: Less dense consolidation right lung base-improved aeration/less passive compressive atelectasis inferred and/or partial clearing of some right pleural fluid. No pneumothorax seen. Extensive bilateral pleural effusions still persist. Less now on the right than before. - CXR 10/17 - Worsening pleural effusions bilaterally. Significant pleural effusion on the left. - CXR 10/20 - There is opacification left mid to lower lung field secondary to large left-sided effusion. Presumed left basilar atelectasis however infiltrate not excluded. Improved right-sided effusion and atelectasis - CXR 10/22 - In situ tracheostomy tube in good position. Right-sided PICC line terminates in the right axillary region. Further opacification both hemithoraces left greater than right. Findings likely represent large layering effusions and some combination of atelectasis and or infiltrate. -CXR 10/26 - Shows continued bilateral pleural effusions -Most recent thoracentesis (right-side only), done 10/13/18: 1000cc of clear fluid were aspirated -F/u plan for chest tube placement VRE/Pseudomonas + Urine, Leukocytosis -MR urine cultures 10/21 +VRE/Pseudomonas. Team suspecting patient likely cult ured VRE +/- Pseudomonas -WBC increasing 15.3 today - will continue to follow ID recs -ID following, Dr. Brock -MR blood cultures negative -No Abx at this time -H[place]andes in place -Afebrile sice 10/14 (blood cultures repeated) -Urine Cx 12/29 +VRE -Blood Cx 10/14 show no growth x 5 days -Tylenol prn fever Hypotension - Remains low, stable in 90s/50s-60s - Monitor albumin, administer prn doses - Midodrine 10 mg PO TID Hyperthyroidism -Methimazole 20 mg PO Q8 Prophylactic measure * Protonix 40mg GT BID * Lactobacillus 1 cap PO BID * MVI 1x/day * Vitamin C 1,000 NG 1x/day * Trach and Peg * SCD on Right and contraindicated on Left due to DVT * Peg feedings * Pulmcar 40cc/hr * patient had frequent BMs on prior formula; no diarrhea; we have spoken with dietary to change it on 08/19/18 * PICC Line d/c due to coiling * Patient has midline access * Note: speak to patient in [place] to assess neurologic status-->she does follow sometimes * s/p bronchoscopy 08/23 * s/p IVC filter 08/23 * s/p LP 09/15 * s/p multiple thoracenteses * patient is FULL CODE * Provigil 50mg PO daily to promote wakefulness during the day. * Social work note (08/09/18): patient is undocumented, has not health insurance, dc planning will be at home with During this prolonged hospital stay, patient treated for the following medical problems. See prior notes for details. 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 Low TSH, and Free T4 Thyroid Storm -Anemia Likely Secondary to Chronic Diseases Dysfunctional uterine bleeding -Vitamin D deficiency -Thrombocytopenia -13 mm Left Adrenal Nodule -Hypernatremia -Deconditioning -Tardive Dyskinesia Disposition: PT/OT. Possible chest tube placement for worsening pleural effusions. Assessment and plan discussed with Dr. Merry Joiner, PGY-1 <[place] - Last Filed: 11/01/18 19:02> Objective - Vital Signs/Intake and Output Vital Signs (last 24 hours): Temp Pulse Resp BP Pulse Ox 97.4 F L 89 18 107/54 L 100 11/01/18 16:00 11/01/18 16:00 11/01/18 16:00 11/01/18 16:00 11/01/18 16:00 Intake and Output: 11/01/18 11/02/18 18:59 06:59 Intake Total 2285 Output Total 525 Balance 1760 - Medications Medications: Current Medications Acetylcysteine (Acetylcysteine 20%) 4 ml INH RQ4 [facility] Last Admin: 11/01/18 16:00 Dose: Not Given Albuterol/Ipratropium (Duoneb 3 Mg/0.5 Mg (3 Ml) Ud) 3 ml INH RQ4 [facility] Last Admin: 11/01/18 16:00 Dose: Not Given Ascorbic Acid (Vitamin C 500 Mg Tab) 1,000 mg NG DAILY [facility] Last Admin: 11/01/18 09:18 Dose: 1,000 mg Aspirin (Aspirin Chewable) 81 mg GT DAILY [facility] Last Admin: 11/01/18 09:18 Dose: 81 mg Dextrose (Dextrose 50% Inj) 0 ml IVP .STAT PRN; Protocol PRN Reason: Hypoglycemia Protocol Dextrose (Glutose 15) 0 gm PO .ONCE PRN; Protocol PRN Reason: Hypoglycemia Protocol Glucagon (Glucagen Diagnostic Kit) 0 mg IM .STAT PRN; Protocol PRN Reason: Hypoglycemia Protocol Cefepime HCl 1 gm/ Dextrose 50 mls @ 100 mls/hr IVPB Q12H [facility]; Protocol Last Admin: 11/01/18 08:41 Dose: 100 mls/hr Sodium Chloride (Sodium Chloride 0.9%) 1,000 mls @ 75 mls/hr IV .[id number] [facility] Last Admin: 11/01/18 05:58 Dose: 75 mls/hr Lactobacillus Acidophilus (Bacid Acidophilus) 1 cap PO BID [facility] Last Admin: 11/01/18 09:23 Dose: 1 cap Methimazole (Tapazole) 10 mg PO Q8 [facility] Last Admin: 11/01/18 05:57 Dose: 10 mg Metoclopramide HCl (Reglan) 10 mg IVP Q12H [facility] Last Admin: 11/01/18 08:41 Dose: 10 mg Midodrine (Proamatine) 10 mg PO TID [facility] Last Admin: 11/01/18 17:42 Dose: 10 mg Modafinil (Provigil) 50 mg PO DAILY [facility] Last Admin: 11/01/18 09:21 Dose: 50 mg Multivitamins (Hexavitamin) 1 tab PEG DAILY [facility] Last Admin: 11/01/18 09:18 Dose: 1 tab Pantoprazole Sodium (Protonix Susp) 40 mg GT Q12H [facility] Last Admin: 11/01/18 08:41 Dose: 40 mg Polyethylene Glycol (Miralax) 17 gm PO BID [facility] Last Admin: 11/01/18 17:42 Dose: 17 gm Simethicone (Mylicon Chew Tab) 80 mg PO QID [facility] Last Admin: 11/01/18 17:42 Dose: 80 mg Tamsulosin HCl (Flomax) 0.4 mg PEG DAILY [facility] Last Admin: 11/01/18 09:19 Dose: 0.4 mg Vitamin A (Vitamin A & D Oint Ud Foilpak) 0.5 ea TOP DAILY [facility] Last Admin: 11/01/18 10:14 Dose: Not Given - Labs Labs: 11/01/18 06:13 11/01/18 06:13 PT 13.3 SECONDS (9.7-12.2) H 10/23/18 06:05 INR 1.2 10/23/18 06:05 APTT 23 SECONDS (21-34) 18 06:10 Attending/Attestation - Attestation I have personally seen and examined this patient.: Yes I have fully participated in the care of the patient.: Yes I have reviewed all pertinent clinical information, including history, physical exam and plan: Yes Notes (Text): 11/01/18 19:01 This is a late entry. Care of this patient was gone over with resident Dr. Weinberg. [place] Nesbitt D.O.
[2018-10-26] MEDS: Multiple Vitamins Tab PEG SCH (10:29)
[2018-10-26] MEDS: Modafinil 50 MG TAB PO SCH (10:29)
[2018-10-26] MEDS: Pantoprazole 40 mg Susp UD GT SCH ×2 (10:29→21:41)
[2018-10-26] MEDS: Vitamins A & D Oint UD Foilpak TOP SCH ×2 (10:30→19:22)
[2018-10-27] MEDS: Acetylcysteine 20% Inhal Soln (4ml) INH SCH ×6 (00:55→19:46)
[2018-10-27] MEDS: Albuterol-Ipratrop 3 mg / 0.5 (3 ml) UD INH SCH ×6 (00:55→19:45)
[2018-10-27] MEDS: Pantoprazole 40 mg Susp UD GT SCH ×2 (09:47→20:49)
[2018-10-27] MEDS: Modafinil 50 MG TAB PO SCH (09:47)
[2018-10-27] MEDS: Multiple Vitamins Tab PEG SCH (09:47)
[2018-10-27] MEDS: Vitamins A & D Oint UD Foilpak TOP SCH ×2 (09:51→18:06)
[2018-10-27] MEDS ORDERED: Lidocaine Hydrochloride 10 ML INJ ONE (12:00)
--- NOTE | 2018-10-27 12:24 | PCM.SURG1 ---
Surgeon's Initial Post Op Note - Surgeon's Notes Surgeon: Sergio Chavis MD [employer] Worker: NONE Type of Anesthesia: Local Pre-Operative Diagnosis: Bilateral pleural effusion Operative Findings: CT showed bilateral pleural effusions Post-Operative Diagnosis: Pleural effusion Operation Performed: Right and left pleural drainage catheter placed Specimen/Specimens Removed: none Estimated Blood Loss: EBL {In ML}: 2 Blood Products Given: N/A Drains Used: Chest Tubes Post-Op Condition: Fair Date of Surgery/Procedure: 10/27/18 Time of Surgery/Procedure: 12:20
--- NOTE | 2018-10-27 12:37 | CT ---
PROCEDURE: Date of procedure: 10/27/2018 Procedure: 1. Placement of a right and left chest tube with CT guidance Medications: 10cc 1 percent lidocaine. Radiation: 1126.04 mGy-cm HISTORY: Bilateral pleural effusions TECHNIQUE: Following informed consent and procedure time-out, patient placed supine on the CT table. Noncontrast CT scan performed confirmed presence of a large right and left pleural effusion. The patient's right and left chest was marked, prepped, and draped in the usual sterile fashion. After the skin was anesthetized with 1 percent lidocaine, a [place] catheter was advanced under CT guidance into the pleural space. The catheter was exchanged over an 035 guidewire and tract was dilated to accommodate a 8.5 [place] pigtail catheter formed within the pleural space. Following placement of the right pleural pigtail drainage catheter, a pigtail drainage catheter was placed within the left pleural space using the same technique. Both the right and left pleural drainage catheters were attached to a pleura vac. A xeroform formed dressing was applied. IMPRESSION: Placement of an 8.5 [place]ian pigtail drainage catheter within the right and left pleural space.
--- NOTE | 2018-10-27 13:28 | CP.PCM.PN ---
<Elijah Weinberg - Last Filed: 10/27/18 13:33> Subjective - Date & Time of Evaluation Date of Evaluation: 10/27/18 Time of Evaluation: 13:31 - Subjective Subjective: PGY-[address] Merry Nesbitt Patient seen and examined at bedside. No acute events overnight. B/l chest tubes placed today with Dr. Chavis - will f/u with results of the procedure and continue to monitor drain output. Otherwise clinically, no changes with this patient. ROS still unable to be obtained. Objective - Vital Signs/Intake and Output Vital Signs (last 24 hours): Temp Pulse Resp BP Pulse Ox 98.7 F 97 H 15 104/60 96 10/27/18 08:00 10/27/18 08:00 10/27/18 08:00 10/27/18 08:00 10/27/18 08:00 Intake and Output: 10/27/18 10/27/18 06:59 18:59 Intake Total 360 Output Total 250 Balance 110 - Medications Medications: Current Medications Acetylcysteine (Acetylcysteine 20%) 4 ml INH RQ4 [facility] Last Admin: 10/27/18 11:56 Dose: Not Given Albuterol/Ipratropium (Duoneb 3 Mg/0.5 Mg (3 Ml) Ud) 3 ml INH RQ4 [facility] Last Admin: 10/27/18 11:57 Dose: Not Given Ascorbic Acid (Vitamin C 500 Mg Tab) 1,000 mg NG DAILY [facility] Last Admin: 10/27/18 09:47 Dose: 1,000 mg Aspirin (Aspirin Chewable) 81 mg GT DAILY [facility] Last Admin: 10/27/18 09:47 Dose: 81 mg Dextrose (Dextrose 50% Inj) 0 ml IVP .STAT PRN; Protocol PRN Reason: Hypoglycemia Protocol Dextrose (Glutose 15) 0 gm PO .ONCE PRN; Protocol PRN Reason: Hypoglycemia Protocol Furosemide (Lasix) 20 mg IVP ONCE PRN PRN Reason: PLEURAL EFFUSION Last Admin: 10/21/18 21:30 Dose: 20 mg Glucagon (Glucagen Diagnostic Kit) 0 mg IM .STAT PRN; Protocol PRN Reason: Hypoglycemia Protocol Methimazole (Tapazole) 20 mg PO Q8 [facility] Last Admin: 10/27/18 06:19 Dose: 20 mg Metoclopramide HCl (Reglan) 10 mg PO Q12H [facility] Stop: 10/27/18 14:00 Last Admin: 10/27/18 02:09 Dose: 10 mg Midodrine (Proamatine) 10 mg PO TID [facility] Last Admin: 10/27/18 09:49 Dose: 10 mg Modafinil (Provigil) 50 mg PO DAILY [facility] Last Admin: 10/27/18 09:47 Dose: 50 mg Multivitamins (Hexavitamin) 1 tab PEG DAILY [facility] Last Admin: 10/27/18 09:47 Dose: 1 tab Pantoprazole Sodium (Protonix Susp) 40 mg GT Q12H [facility] Last Admin: 10/27/18 09:47 Dose: 40 mg Tamsulosin HCl (Flomax) 0.4 mg PEG DAILY [facility] Last Admin: 10/27/18 09:47 Dose: 0.4 mg Vitamin A (Vitamin A & D Oint Ud Foilpak) 0.5 ea TOP BID [facility] Last Admin: 10/27/18 09:51 Dose: 0.5 ea - Labs Labs: 10/26/18 05:42 10/26/18 05:42 PT 13.3 SECONDS (9.7-12.2) H 10/23/18 06:05 INR 1.2 10/23/18 06:05 APTT 23 SECONDS (21-34) 10/02/18 06:10 - Constitutional Appears: No Acute Distress, Chronically Ill - Head Exam Head Exam: ATRAUMATIC, NORMOCEPHALIC - Eye Exam Eye Exam: EOMI - ENT Exam ENT Exam: Mucous Membranes Moist - Neck Exam Additional comments: trach, c/d/i - Respiratory Exam Respiratory Exam: Decreased Breath Sounds. absent: Rhonchi, Wheezes Additional comments: trach, on vent - Cardiovascular Exam Cardiovascular Exam: REGULAR RHYTHM, +S1, +S2 - GI/Abdominal Exam GI & Abdominal Exam: Distended, Soft, Normal Bowel Sounds - Extremities Exam Extremities Exam: Normal Inspection. absent: Pedal Edema, Tenderness - Neurological Exam Neurological Exam: Awake. absent: Alert, Oriented x3 - Psychiatric Exam Psychiatric exam: Flat Affect - Skin Skin Exam: Dry, Intact Assessment and Plan - Assessment and Plan (Free Text) Assessment: 53f initially admitted on 07/07/18 for cough and malaise x 2-3 weeks. Recurrent Pleural Effusions -Stable, Afebrile, Off Abx - S/p thoracentesis 10/20/18 with IR, without pigtail placement. --CXR s/p procedure showing significantly improved R-sided effusion. However, repeat CXR on 10/22 worsened again (see reports below) -CXR on 10/13/18 showed Interval significant improvement in right pleural effusion versus pulmonary edema. No pneumothorax. Worsening left pleural effusion versus pulmonary edema and redemonstration of loculated effusion along the left lateral chest wall. Stable position of the tracheostomy tube (see full report)---As patient keeps developing pleural effusions, patient may benefit from pigtail catheter -Continue Duonebs Q4H [facility] with mucomist -Infectious disease, Dr Brock on consult, help appreciated -Imaging: - Chest XR 10/01: Interval development of pleural effusions with loculated component along the right lateral chest wall. Moderate pulmonary venous congestion. Underlying pulmonary edema especially in the right lung is also a consideration. Follow up after medical management is recommended to ensure complete resolution. - Chest XR 10/04: Potential pulmonary vascular congestion vs infiltrates with possible trace left pleural effusion. Improved from 10/02 - Chest XR 10/05: Showing increased pulmonary vascular congestion compared to 10/04 - Chest XR 10/09: showing significant congestion - CXR 10/10: Less dense consolidation right lung base-improved aeration/less passive compressive atelectasis inferred and/or partial clearing of some right pleural fluid. No pneumothorax seen. Extensive bilateral pleural effusions still persist. Less now on the right than before. - CXR 10/17 - Worsening pleural effusions bilaterally. Significant pleural effusion on the left. - CXR 10/20 - There is opacification left mid to lower lung field secondary to large left-sided effusion. Presumed left basilar atelectasis however infiltrate not excluded. Improved right-sided effusion and atelectasis - CXR 10/22 - In situ tracheostomy tube in good position. Right-sided PICC line terminates in the right axillary region. Further opacification both hemithoraces left greater than right. Findings likely represent large layering effusions and some combination of atelectasis and or infiltrate. -CXR 10/26 - Shows continued bilateral pleural effusions -10/13/18 thoracentesis (right-side only), done: 1000cc of clear fluid were aspirated -10/27/2018: Right and left pleural drainage catheter placed with Dr. Chavis. Will f/u results. VRE/Pseudomonas + Urine, Leukocytosis -MR urine cultures 10/21 +VRE/Pseudomonas. Team suspecting patient likely cultured VRE +/- Pseudomonas -WBC increasing 15.3 today - will continue to follow ID recs -ID following, Dr. Brock -MR blood cultures negative -No Abx at this time -Hernandes in place -Afebrile sice 10/14 (blood cultures repeated) -Urine Cx 09/30 +VRE -Blood Cx 10/14 show no growth x 5 days -Tylenol prn fever Hypotension - Remains low, stable in 90s/50s-60s - Monitor albumin, administer prn doses - Midodrine 10 mg PO TID Hyperthyroidism -Methimazole 20 mg PO Q8 Prophylactic measure * Protonix 40mg GT BID * Lactobacillus 1 cap PO BID * MVI 1x/day * Vitamin C 1,000 NG 1x/day * Trach and Peg * SCD on Right and contraindicated on Left due to DVT * Peg feedings * Pulmcar 40cc/hr * patient had frequent BMs on prior formula; no diarrhea; we have spoken with dietary to change it on 08/19/18 * PICC Line d/c due to coiling * Patient has midline access * Note: speak to patient in [place] to assess neurologic status-->she does follow sometimes * s/p bronchoscopy 08/23 * s/p IVC filter 08/23 * s/p LP 09/15 * s/p multiple thoracenteses * patient is FULL CODE * Provigil 50mg PO daily to promote wakefulness during the day. * Social work note (08/09/18): patient is undocumented, has not health insurance, dc planning will be at home with During this prolonged hospital stay, patient treated for the following medical problems. See prior notes for details. 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 Low TSH, and Free T4 Thyroid Storm -Anemia Likely Secondary to Chronic Diseases Dysfunctional uterine bleeding -Vitamin D deficiency -Thrombocytopenia -13 mm Left Adrenal Nodule -Hypernatremia -Deconditioning -Tardive Dyskinesia Disposition: PT/OT. Possible chest tube placement for worsening pleural effusions. Assessment and plan discussed with Dr. Merry Joiner, PGY-1 <[place] Nesbitt - Last Filed: 11/01/18 19:01> Objective - Vital Signs/Intake and Output Vital Signs (last 24 hours): Temp Pulse Resp BP Pulse Ox 97.4 F L 89 18 107/54 L 100 11/01/18 16:00 11/01/18 16:00 11/01/18 16:00 11/01/18 16:00 11/01/18 16:00 Intake and Output: 11/01/18 11/02/18 18:59 06:59 Intake Total 2285 Output Total 525 Balance 1760 - Medications Medications: Current Medications Acetylcysteine (Acetylcysteine 20%) 4 ml INH RQ4 [facility] Last Admin: 11/01/18 16:00 Dose: Not Given Albuterol/Ipratropium (Duoneb 3 Mg/0.5 Mg (3 Ml) Ud) 3 ml INH RQ4 [facility] Last Admin: 11/01/18 16:00 Dose: Not Given Ascorbic Acid (Vitamin C 500 Mg Tab) 1,000 mg NG DAILY [facility] Last Admin: 11/01/18 09:18 Dose: 1,000 mg Aspirin (Aspirin Chewable) 81 mg GT DAILY [facility] Last Admin: 11/01/18 09:18 Dose: 81 mg Dextrose (Dextrose 50% Inj) 0 ml IVP .STAT PRN; Protocol PRN Reason: Hypoglycemia Protocol Dextrose (Glutose 15) 0 gm PO .ONCE PRN; Protocol PRN Reason: Hypoglycemia Protocol Glucagon (Glucagen Diagnostic Kit) 0 mg IM .STAT PRN; Protocol PRN Reason: Hypoglycemia Protocol Cefepime HCl 1 gm/ Dextrose 50 mls @ 100 mls/hr IVPB Q12H [facility]; Protocol Last Admin: 11/01/18 08:41 Dose: 100 mls/hr Sodium Chloride (Sodium Chloride 0.9%) 1,000 mls @ 75 mls/hr IV .[id number] [facility] Last Admin: 11/01/18 05:58 Dose: 75 mls/hr Lactobacillus Acidophilus (Bacid Acidophilus) 1 cap PO BID [facility] Last Admin: 11/01/18 09:23 Dose: 1 cap Methimazole (Tapazole) 10 mg PO Q8 [facility] Last Admin: 11/01/18 05:57 Dose: 10 mg Metoclopramide HCl (Reglan) 10 mg IVP Q12H [facility] Last Admin: 11/01/18 08:41 Dose: 10 mg Midodrine (Proamatine) 10 mg PO TID [facility] Last Admin: 11/01/18 17:42 Dose: 10 mg Modafinil (Provigil) 50 mg PO DAILY [facility] Last Admin: 11/01/18 09:21 Dose: 50 mg Multivitamins (Hexavitamin) 1 tab PEG DAILY [facility] Last Admin: 11/01/18 09:18 Dose: 1 tab Pantoprazole Sodium (Protonix Susp) 40 mg GT Q12H [facility] Last Admin: 11/01/18 08:41 Dose: 40 mg Polyethylene Glycol (Miralax) 17 gm PO BID [facility] Last Admin: 11/01/18 17:42 Dose: 17 gm Simethicone (Mylicon Chew Tab) 80 mg PO QID [facility] Last Admin: 11/01/18 17:42 Dose: 80 mg Tamsulosin HCl (Flomax) 0.4 mg PEG DAILY [facility] Last Admin: 11/01/18 09:19 Dose: 0.4 mg Vitamin A (Vitamin A & D Oint Ud Foilpak) 0.5 ea TOP DAILY [facility] Last Admin: 11/01/18 10:14 Dose: Not Given - Labs Labs: 11/01/18 06:13 11/01/18 06:13 PT 13.3 SECONDS (9.7-12.2) H 10/23/18 06:05 INR 1.2 10/23/18 06:05 APTT 23 SECONDS (21-34) 10/02/18 06:10 Attending/Attestation - Attestation I have personally seen and examined this patient.: Yes I have fully participated in the care of the patient.: Yes I have reviewed all pertinent clinical information, including history, physical exam and plan: Yes Notes (Text): 11/01/18 19:01 This is a late entry. Care of this patient was gone over with resident Dr. Weinberg. [place] Nesbitt D.O.
--- NOTE | 2018-10-27 18:10 | CP.PCM.PN ---
Subjective - Date & Time of Evaluation Date of Evaluation: 10/27/18 Time of Evaluation: 07:00 - Subjective Subjective: events noted bilat chest tubes no fever awake / confused on vent NAD Objective - Vital Signs/Intake and Output Vital Signs (last 24 hours): Temp Pulse Resp BP Pulse Ox 97.4 F L 85 21 115/70 99 10/27/18 16:00 10/27/18 16:00 10/27/18 16:00 10/27/18 16:00 10/27/18 16:00 Intake and Output: 10/27/18 10/27/18 06:59 18:59 Intake Total 360 Output Total 250 Balance 110 - Medications Medications: Current Medications Acetylcysteine (Acetylcysteine 20%) 4 ml INH RQ4 [facility] Last Admin: 10/27/18 16:15 Dose: 4 ml Albuterol/Ipratropium (Duoneb 3 Mg/0.5 Mg (3 Ml) Ud) 3 ml INH RQ4 [facility] Last Admin: 10/27/18 16:15 Dose: 3 ml Ascorbic Acid (Vitamin C 500 Mg Tab) 1,000 mg NG DAILY [facility] Last Admin: 10/27/18 09:47 Dose: 1,000 mg Aspirin (Aspirin Chewable) 81 mg GT DAILY [facility] Last Admin: 10/27/18 09:47 Dose: 81 mg Dextrose (Dextrose 50% Inj) 0 ml IVP .STAT PRN; Protocol PRN Reason: Hypoglycemia Protocol Dextrose (Glutose 15) 0 gm PO .ONCE PRN; Protocol PRN Reason: Hypoglycemia Protocol Furosemide (Lasix) 20 mg IVP ONCE PRN PRN Reason: PLEURAL EFFUSION Last Admin: 10/21/18 21:30 Dose: 20 mg Glucagon (Glucagen Diagnostic Kit) 0 mg IM .STAT PRN; Protocol PRN Reason: Hypoglycemia Protocol Methimazole (Tapazole) 20 mg PO Q8 [facility] Last Admin: 10/27/18 15:38 Dose: 20 mg Midodrine (Proamatine) 10 mg PO TID [facility] Last Admin: 10/27/18 18:06 Dose: 10 mg Modafinil (Provigil) 50 mg PO DAILY [facility] Last Admin: 10/27/18 09:47 Dose: 50 mg Multivitamins (Hexavitamin) 1 tab PEG DAILY [facility] Last Admin: 10/27/18 09:47 Dose: 1 tab Pantoprazole Sodium (Protonix Susp) 40 mg GT Q12H [facility] Last Admin: 10/27/18 09:47 Dose: 40 mg Tamsulosin HCl (Flomax) 0.4 mg PEG DAILY [facility] Last Admin: 10/27/18 09:47 Dose: 0.4 mg Vitamin A (Vitamin A & D Oint Ud Foilpak) 0.5 ea TOP BID [facility] Last Admin: 10/27/18 18:06 Dose: 0.5 ea - Labs Labs: 10/26/18 05:42 10/26/18 05:42 PT 13.3 SECONDS (9.7-12.2) H 10/23/18 06:05 INR 1.2 10/23/18 06:05 APTT 23 SECONDS (21-34) 10/02/18 06:10 - Constitutional Appears: Non-toxic, Cachectic, Chronically Ill - Head Exam Head Exam: NORMOCEPHALIC - Eye Exam Eye Exam: absent: Scleral icterus - ENT Exam ENT Exam: Mucous Membranes Dry - Neck Exam Neck Exam: absent: Lymphadenopathy - Respiratory Exam Respiratory Exam: Decreased Breath Sounds - Cardiovascular Exam Cardiovascular Exam: REGULAR RHYTHM - GI/Abdominal Exam GI & Abdominal Exam: Distended, Soft - Rectal Exam Rectal Exam: Deferred - Exam Exam: NORMAL INSPECTION Assessment and Plan (1) NEHA (acute kidney injury) Status: Acute (2) Acute renal failure Status: Acute (3) Acute respiratory failure Status: Acute (4) Aspiration pneumonia Status: Acute (5) Septic shock Status: Acute (6) Urinary tract infection Status: Acute (7) Diabetes mellitus Status: Chronic (8) Anoxic brain damage Status: Acute - Assessment and Plan (Free Text) Assessment: leukocytosis noted - remains afebrile supportive care chest tube care
[2018-10-28] MEDS: Acetylcysteine 20% Inhal Soln (4ml) INH SCH ×7 (00:28→23:38)
[2018-10-28] MEDS: Albuterol-Ipratrop 3 mg / 0.5 (3 ml) UD INH SCH ×7 (00:28→23:38)
[2018-10-28 06:20] LABS: BASO % 0.4 % (0.0-2.0); EOS # 0.3 K/uL (0.0-0.7); EOS % 2.6 % (0.0-4.0); HEMOGLOBIN 8.8 g/dL (11.0-16.0); LYMPH # 1.3 K/uL (1.0-4.3); LYMPH % 12.4 % (20.0-40.0); MEAN CELL VOLUME 91.9 fL (81.0-99.0); MEAN CORPUSCULAR HEMOGLOBIN 29.9 pg (27.0-31.0); MEAN CORPUSCULAR HGB CONC 32.6 g/dL (33.0-37.0); MEAN PLATELET VOLUME 7.8 fL (7.2-11.7); MONO # 0.4 K/uL (0.0-0.8); MONO % 3.4 % (0.0-10.0); NEUT # 8.5 K/uL (1.8-7.0); NEUT % 81.2 % (50.0-75.0); RBC 2.96 Mil/uL (3.80-5.20); RED CELL DISTRIBUTION WIDTH 19.8 % (11.5-14.5); WHITE BLOOD COUNT 10.4 K/uL (4.8-10.8)
[2018-10-28 06:29] LABS: GFR NON-AFRICAN AMERICAN > 60
[2018-10-28 06:37] LABS: ALB/GLOB RATIO 0.9 (1.0-2.1); ALBUMIN 2.7 g/dL (3.5-5.0); ALT/SGPT 15 U/L (9-52); AST/SGOT 19 U/L (14-36); BLOOD UREA NITROGEN 37 mg/dL (7-17)
[2018-10-28] MEDS: Vitamins A & D Oint UD Foilpak TOP SCH ×2 (09:46→17:38)
[2018-10-28] MEDS: Pantoprazole 40 mg Susp UD GT SCH ×2 (09:46→20:57)
[2018-10-28] MEDS: Modafinil 50 MG TAB PO SCH (09:46)
[2018-10-28] MEDS: Multiple Vitamins Tab PEG SCH (09:47)
--- NOTE | 2018-10-28 20:20 | CP.PCM.PN ---
<Anitha Trujillo Rich - Last Filed: 10/28/18 20:33> Subjective - Date & Time of Evaluation Date of Evaluation: 10/28/18 Time of Evaluation: 08:35 - Subjective Subjective: Medicine progress note ( Dr. North Nesbitt's service) Patient seen and examined at bedside. Patient is clinically the same with no acute issues. Unable to obtain ROS due to patient's current condition. Objective - Vital Signs/Intake and Output Vital Signs (last 24 hours): Temp Pulse Resp BP Pulse Ox 98.5 F 80 18 94/49 L 100 10/28/18 16:00 10/28/18 16:00 10/28/18 16:00 10/28/18 16:00 10/28/18 16:00 Intake and Output: 10/28/18 10/29/18 18:59 06:59 Intake Total 410 Output Total 110 Balance 300 - Medications Medications: Current Medications Acetylcysteine (Acetylcysteine 20%) 4 ml INH RQ4 [facility] Last Admin: 10/28/18 20:02 Dose: 4 ml Albuterol/Ipratropium (Duoneb 3 Mg/0.5 Mg (3 Ml) Ud) 3 ml INH RQ4 [facility] Last Admin: 10/28/18 20:01 Dose: 3 ml Ascorbic Acid (Vitamin C 500 Mg Tab) 1,000 mg NG DAILY [facility] Last Admin: 10/28/18 09:47 Dose: 1,000 mg Aspirin (Aspirin Chewable) 81 mg GT DAILY [facility] Last Admin: 10/28/18 09:46 Dose: 81 mg Dextrose (Dextrose 50% Inj) 0 ml IVP .STAT PRN; Protocol PRN Reason: Hypoglycemia Protocol Dextrose (Glutose 15) 0 gm PO .ONCE PRN; Protocol PRN Reason: Hypoglycemia Protocol Furosemide (Lasix) 20 mg IVP ONCE PRN PRN Reason: PLEURAL EFFUSION Last Admin: 10/21/18 21:30 Dose: 20 mg Glucagon (Glucagen Diagnostic Kit) 0 mg IM .STAT PRN; Protocol PRN Reason: Hypoglycemia Protocol Cefepime HCl 1 gm/ Dextrose 50 mls @ 100 mls/hr IVPB Q12H [facility]; Protocol Last Admin: 10/28/18 09:47 Dose: 100 mls/hr Methimazole (Tapazole) 20 mg PO Q8 [facility] Last Admin: 10/28/18 13:28 Dose: 20 mg Midodrine (Proamatine) 10 mg PO TID [facility] Last Admin: 10/28/18 17:39 Dose: 10 mg Modafinil (Provigil) 50 mg PO DAILY [facility] Last Admin: 10/28/18 09:46 Dose: 50 mg Multivitamins (Hexavitamin) 1 tab PEG DAILY [facility] Last Admin: 10/28/18 09:47 Dose: 1 tab Pantoprazole Sodium (Protonix Susp) 40 mg GT Q12H [facility] Last Admin: 10/28/18 09:46 Dose: 40 mg Tamsulosin HCl (Flomax) 0.4 mg PEG DAILY [facility] Last Admin: 10/28/18 09:46 Dose: 0.4 mg Vitamin A (Vitamin A & D Oint Ud Foilpak) 0.5 ea TOP BID [facility] Last Admin: 10/28/18 17:38 Dose: 0.5 ea - Labs Labs: 10/28/18 06:07 10/28/18 06:07 PT 13.3 SECONDS (9.7-12.2) H 10/23/18 06:05 INR 1.2 10/23/18 06:05 APTT 23 SECONDS (21-34) 10/02/18 06:10 - Constitutional Appears: No Acute Distress - Head Exam Head Exam: ATRAUMATIC, NORMAL INSPECTION - Eye Exam Eye Exam: EOMI - Neck Exam Additional comments: With tracheostomy, on vent - Respiratory Exam Respiratory Exam: Decreased Breath Sounds. absent: Rales, Rhonchi, Wheezes - Cardiovascular Exam Cardiovascular Exam: REGULAR RHYTHM, +S1, +S2 - GI/Abdominal Exam GI & Abdominal Exam: Distended, Soft, Normal Bowel Sounds Additional comments: Abdominal flat plate: unofficial read ( no obstruction noted) - Extremities Exam Extremities Exam: Normal Inspection. absent: Pedal Edema - Neurological Exam Neurological Exam: Awake. absent: Oriented x3 - Psychiatric Exam Psychiatric exam: Flat Affect - Skin Skin Exam: Normal Color Assessment and Plan (1) Pleural effusion Assessment & Plan: Recurrent Pleural Effusions -Stable, Afebrile, Off Abx - S/p thoracentesis 10/20/18 with IR, without pigtail placement. --CXR s/p procedure showing significantly improved R-sided effusion. However, repeat CXR on 10/22 worsened again (see reports below) -CXR on 10/13/18 showed Interval significant improvement in right pleural effusion versus pulmonary edema. No pneumothorax. Worsening left pleural effusion versus pulmonary edema and redemonstration of loculated effusion along the left lateral chest wall. Stable position of the tracheostomy tube (see full report)---As patient keeps developing pleural effusions, patient may benefit from pigtail catheter -Continue Duonebs Q4H [facility] with mucomist -Infectious disease, Dr Brock on consult, help appreciated -Imaging: - Chest XR 10/01: Interval development of pleural effusions with loculated component along the right lateral chest wall. Moderate pulmonary venous congestion. Underlying pulmonary edema especially in the right lung is also a consideration. Follow up after medical management is recommended to ensure complete resolution. - Chest XR 10/04: Potential pulmonary vascular congestion vs infiltrates with possible trace left pleural effusion. Improved from 10/02 - Chest XR 10/05: Showing increased pulmonary vascular congestion compared to 10/04 - Chest XR 10/09: showing significant congestion - CXR 10/10: Less dense consolidation right lung base-improved aeration/less passive compressive atelectasis inferred and/or partial clearing of some right pleural fluid. No pneumothorax seen. Extensive bilateral pleural effusions still persist. Less now on the right than before. - CXR 10/17 - Worsening pleural effusions bilaterally. Significant pleural effusion on the left. - CXR 10/20 - There is opacification left mid to lower lung field secondary to large left-sided effusion. Presumed left basilar atelectasis however infiltrate not excluded. Improved right-sided effusion and atelectasis - CXR 10/22 - In situ tracheostomy tube in good position. Right-sided PICC line terminates in the right axillary region. Further opacification both hemithoraces left greater than right. Findings likely represent large layering effusions and some combination of atelectasis and or infiltrate. -CXR 10/26 - Shows continued bilateral pleural effusions -10/13/18 thoracentesis (right-side only), done: 1000cc of clear fluid were aspirated -10/27/2018: Right and left pleural drainage catheter placed with Dr. Chavis.; Chest CT (10/27/17): Placement of an 8.5 Macedonian pigtail drainage catheter within the right and left pleural space. Status: Acute (2) Distended abdomen Assessment & Plan: Soft Tube feedings held Abdominal Flat plate: Unofficial read, no signs of obstruction, no dilated loop of bowels Reglan 10mg IV q12h Status: Acute (3) UTI (urinary tract infection) Assessment & Plan: VRE/Pseudomonas + Urine, Leukocytosis -MR urine cultures 10/21 +VRE/Pseudomonas. Team suspecting patient likely cultur ed VRE +/- Pseudomonas -WBC increasing 15.3 today - will continue to follow ID recs -ID following, Dr. Brock -MR blood cultures negative -No Abx at this time -Hernandes in place -Afebrile sice 10/14 (blood cultures repeated) -Urine Cx 09/30 +VRE -Blood Cx 10/14 show no growth x 5 days -Tylenol prn fever Status: Acute (4) Hypotension Assessment & Plan: - Remains low, stable in 90s/50s-60s - Monitor albumin, administer prn doses - Midodrine 10 mg PO TID Status: Acute (5) Prophylactic measure Assessment & Plan: Protonix 40mg GT BID * Lactobacillus 1 cap PO BID * MVI 1x/day * Vitamin C 1,000 NG 1x/day * Trach and Peg * SCD on Right and contraindicated on Left due to DVT * Peg feedings * Pulmcar 40cc/hr * patient had frequent BMs on prior formula; no diarrhea; we have spoken with dietary to change it on 08/19/18 * PICC Line d/c due to coiling * Patient has midline access * Note: speak to patient in [place] to assess neurologic status-->she does follow sometimes * s/p bronchoscopy 08/23 * s/p IVC filter 08/23 * s/p LP 09/15 * s/p multiple thoracenteses * patient is FULL CODE * Provigil 50mg PO daily to promote wakefulness during the day. * Social work note (08/09/18): patient is undocumented, has not health insurance, dc planning will be at home with All plans and management discussed with Dr. [place] N[place] Status: Acute <[place] N[place]itt - Last Filed: 11/01/18 19:01> Objective - Vital Signs/Intake and Output Vital Signs (last 24 hours): Temp Pulse Resp BP Pulse Ox 97.4 F L 89 18 107/54 L 100 11/01/18 16:00 11/01/18 16:00 11/01/18 16:00 11/01/18 16:00 11/01/18 16:00 Intake and Output: 11/01/18 11/02/18 18:59 06:59 Intake Total 2285 Output Total 525 Balance 1760 - Medications Medications: Current Medications Acetylcysteine (Acetylcysteine 20%) 4 ml INH RQ4 [facility] Last Admin: 11/01/18 16:00 Dose: Not Given Albuterol/Ipratropium (Duoneb 3 Mg/0.5 Mg (3 Ml) Ud) 3 ml INH RQ4 [facility] Last Admin: 11/01/18 16:00 Dose: Not Given Ascorbic Acid (Vitamin C 500 Mg Tab) 1,000 mg NG DAILY [facility] Last Admin: 11/01/18 09:18 Dose: 1,000 mg Aspirin (Aspirin Chewable) 81 mg GT DAILY [facility] Last Admin: 11/01/18 09:18 Dose: 81 mg Dextrose (Dextrose 50% Inj) 0 ml IVP .STAT PRN; Protocol PRN Reason: Hypoglycemia Protocol Dextrose (Glutose 15) 0 gm PO .ONCE PRN; Protocol PRN Reason: Hypoglycemia Protocol Glucagon (Glucagen Diagnostic Kit) 0 mg IM .STAT PRN; Protocol PRN Reason: Hypoglycemia Protocol Cefepime HCl 1 gm/ Dextrose 50 mls @ 100 mls/hr IVPB Q12H [facility]; Protocol Last Admin: 11/01/18 08:41 Dose: 100 mls/hr Sodium Chloride (Sodium Chloride 0.9%) 1,000 mls @ 75 mls/hr IV .[id number] [facility] Last Admin: 11/01/18 05:58 Dose: 75 mls/hr Lactobacillus Acidophilus (Bacid Acidophilus) 1 cap PO BID [facility] Last Admin: 11/01/18 09:23 Dose: 1 cap Methimazole (Tapazole) 10 mg PO Q8 [facility] Last Admin: 11/01/18 05:57 Dose: 10 mg Metoclopramide HCl (Reglan) 10 mg IVP Q12H [facility] Last Admin: 11/01/18 08:41 Dose: 10 mg Midodrine (Proamatine) 10 mg PO TID [facility] Last Admin: 11/01/18 17:42 Dose: 10 mg Modafinil (Provigil) 50 mg PO DAILY [facility] Last Admin: 01/30/19 09:21 Dose: 50 mg Multivitamins (Hexavitamin) 1 tab PEG DAILY [facility] Last Admin: 11/01/18 09:18 Dose: 1 tab Pantoprazole Sodium (Protonix Susp) 40 mg GT Q12H [facility] Last Admin: 11/01/18 08:41 Dose: 40 mg Polyethylene Glycol (Miralax) 17 gm PO BID [facility] Last Admin: 11/01/18 17:42 Dose: 17 gm Simethicone (Mylicon Chew Tab) 80 mg PO QID [facility] Last Admin: 11/01/18 17:42 Dose: 80 mg Tamsulosin HCl (Flomax) 0.4 mg PEG DAILY [facility] Last Admin: 11/01/18 09:19 Dose: 0.4 mg Vitamin A (Vitamin A & D Oint Ud Foilpak) 0.5 ea TOP DAILY [facility] Last Admin: 11/01/18 10:14 Dose: Not Given - Labs Labs: 11/01/18 06:13 11/01/18 06:13 PT 13.3 SECONDS (9.7-12.2) H 10/23/18 06:05 INR 1.2 10/23/18 06:05 APTT 23 SECONDS (21-34) 10/02/18 06:10 Attending/Attestation - Attestation I have personally seen and examined this patient.: Yes I have fully participated in the care of the patient.: Yes I have reviewed all pertinent clinical information, including history, physical exam and plan: Yes Notes (Text): 11/01/18 19:01 This is a late entry. Care of this patient was gone over with resident Dr. Trujillo. [place] Nesbitt D.O.
[2018-10-28] MEDS ORDERED: Sodium Chloride 0.9% 1,000 ML IV ONE (22:39)
[2018-10-29] MEDS: Albuterol-Ipratrop 3 mg / 0.5 (3 ml) UD INH SCH ×6 (03:17→23:44)
[2018-10-29] MEDS: Acetylcysteine 20% Inhal Soln (4ml) INH SCH ×6 (03:17→23:43)
[2018-10-29] MEDS: Sodium Chloride 0.9% 1,000 ML IV SCH ×4 (04:30→19:45)
[2018-10-29] MEDS: Modafinil 50 MG TAB PO SCH (10:39)
[2018-10-29] MEDS: Multiple Vitamins Tab PEG SCH (10:39)
[2018-10-29] MEDS: Vitamins A & D Oint UD Foilpak TOP SCH ×2 (10:39→17:57)
[2018-10-29] MEDS: Pantoprazole 40 mg Susp UD GT SCH ×2 (10:39→22:00)
--- NOTE | 2018-10-29 13:19 | RAD ---
Abdomen single frontal view HISTORY: No bowel movement. Comparison: None available. Findings: Multiple overlying drains and tubing overlying the upper mid abdomen. IVC filter place. Relative paucity of bowel gas. Some stool seen within the right hemicolon. Upper abdomen was not imaged on this study. Degenerative changes in the spine and hips. Impression: Nonspecific bowel gas pattern with relative paucity of bowel gas.
--- NOTE | 2018-10-29 16:35 | CP.PCM.PN ---
Subjective - Date & Time of Evaluation Date of Evaluation: 10/29/18 Time of Evaluation: 09:00 - Subjective Subjective: sputum + for gram neg jerod- likely pseudomonas Objective - Vital Signs/Intake and Output Vital Signs (last 24 hours): Temp Pulse Resp BP Pulse Ox 98.7 F 87 21 89/47 L 100 10/29/18 08:40 10/29/18 08:40 10/29/18 08:40 10/29/18 08:40 10/29/18 08:40 Intake and Output: 10/29/18 10/29/18 06:59 18:59 Intake Total 1025 Output Total 780 Balance 245 - Medications Medications: Current Medications Acetylcysteine (Acetylcysteine 20%) 4 ml INH RQ4 [facility] Last Admin: 10/29/18 16:08 Dose: 4 ml Albuterol/Ipratropium (Duoneb 3 Mg/0.5 Mg (3 Ml) Ud) 3 ml INH RQ4 [facility] Last Admin: 10/29/18 16:08 Dose: 3 ml Ascorbic Acid (Vitamin C 500 Mg Tab) 1,000 mg NG DAILY [facility] Last Admin: 10/29/18 10:39 Dose: 1,000 mg Aspirin (Aspirin Chewable) 81 mg GT DAILY [facility] Last Admin: 10/29/18 10:42 Dose: 81 mg Dextrose (Dextrose 50% Inj) 0 ml IVP .STAT PRN; Protocol PRN Reason: Hypoglycemia Protocol Dextrose (Glutose 15) 0 gm PO .ONCE PRN; Protocol PRN Reason: Hypoglycemia Protocol Furosemide (Lasix) 20 mg IVP ONCE PRN PRN Reason: PLEURAL EFFUSION Last Admin: 10/21/18 21:30 Dose: 20 mg Glucagon (Glucagen Diagnostic Kit) 0 mg IM .STAT PRN; Protocol PRN Reason: Hypoglycemia Protocol Cefepime HCl 1 gm/ Dextrose 50 mls @ 100 mls/hr IVPB Q12H [facility]; Protocol Last Admin: 10/29/18 10:42 Dose: 100 mls/hr Sodium Chloride (Sodium Chloride 0.9%) 1,000 mls @ 100 mls/hr IV .Q10H [facility] Last Admin: 10/29/18 16:00 Dose: 100 mls/hr Methimazole (Tapazole) 20 mg PO Q8 [facility] Last Admin: 10/29/18 13:35 Dose: 20 mg Metoclopramide HCl (Reglan) 10 mg IVP Q12H [facility] Last Admin: 10/29/18 10:39 Dose: 10 mg Midodrine (Proamatine) 10 mg PO TID [facility] Last Admin: 10/29/18 10:40 Dose: 10 mg Modafinil (Provigil) 50 mg PO DAILY [facility] Last Admin: 10/29/18 10:39 Dose: 50 mg Multivitamins (Hexavitamin) 1 tab PEG DAILY [facility] Last Admin: 10/29/18 10:39 Dose: 1 tab Pantoprazole Sodium (Protonix Susp) 40 mg GT Q12H [facility] Last Admin: 10/29/18 10:39 Dose: 40 mg Tamsulosin HCl (Flomax) 0.4 mg PEG DAILY [facility] Last Admin: 10/29/18 10:39 Dose: 0.4 mg Vitamin A (Vitamin A & D Oint Ud Foilpak) 0.5 ea TOP BID [facility] Last Admin: 10/29/18 10:39 Dose: 0.5 ea - Labs Labs: 10/28/18 06:07 10/28/18 06:07 PT 13.3 SECONDS (9.7-12.2) H 10/23/18 06:05 INR 1.2 10/23/18 06:05 APTT 23 SECONDS (21-34) 10/02/18 06:10 - Constitutional Appears: Confused, Cachectic, Chronically Ill - Head Exam Head Exam: NORMOCEPHALIC - Eye Exam Eye Exam: absent: Scleral icterus - ENT Exam ENT Exam: Mucous Membranes Dry - Neck Exam Neck Exam: absent: Lymphadenopathy - Respiratory Exam Respiratory Exam: Decreased Breath Sounds - Cardiovascular Exam Cardiovascular Exam: REGULAR RHYTHM - GI/Abdominal Exam GI & Abdominal Exam: Distended, Soft - Rectal Exam Rectal Exam: Deferred Assessment and Plan (1) NEHA (acute kidney injury) Status: Acute (2) Acute renal failure Status: Acute (3) Acute respiratory failure Status: Acute (4) Aspiration pneumonia Status: Acute (5) Septic shock Status: Acute (6) Urinary tract infection Status: Acute (7) Diabetes mellitus Status: Chronic (8) Anoxic brain damage Status: Acute
--- NOTE | 2018-10-29 17:20 | CP.PCM.PN ---
<Anitha Trujillo E - Last Filed: 10/29/18 20:57> Subjective - Date & Time of Evaluation Date of Evaluation: 10/29/18 Time of Evaluation: 08:45 - Subjective Subjective: Medicine progress note ( Dr. [place] Nesbitt's service) Patient seen and examined at bedside. Patient is clinically the same with no acute issues. Unable to obtain ROS due to patient's current condition. Objective - Vital Signs/Intake and Output Vital Signs (last 24 hours): Temp Pulse Resp BP Pulse Ox 98.5 F 81 12 78/43 L 100 10/29/18 16:00 10/29/18 16:00 10/29/18 16:00 10/29/18 16:00 10/29/18 16:00 Intake and Output: 10/29/18 10/29/18 06:59 18:59 Intake Total 1025 100 Output Total 780 Balance 245 100 - Medications Medications: Current Medications Acetylcysteine (Acetylcysteine 20%) 4 ml INH RQ4 [facility] Last Admin: 10/29/18 16:08 Dose: 4 ml Albuterol/Ipratropium (Duoneb 3 Mg/0.5 Mg (3 Ml) Ud) 3 ml INH RQ4 [facility] Last Admin: 10/29/18 16:08 Dose: 3 ml Ascorbic Acid (Vitamin C 500 Mg Tab) 1,000 mg NG DAILY [facility] Last Admin: 10/29/18 10:39 Dose: 1,000 mg Aspirin (Aspirin Chewable) 81 mg GT DAILY [facility] Last Admin: 10/29/18 10:42 Dose: 81 mg Dextrose (Dextrose 50% Inj) 0 ml IVP .STAT PRN; Protocol PRN Reason: Hypoglycemia Protocol Dextrose (Glutose 15) 0 gm PO .ONCE PRN; Protocol PRN Reason: Hypoglycemia Protocol Furosemide (Lasix) 20 mg IVP ONCE PRN PRN Reason: PLEURAL EFFUSION Last Admin: 10/21/18 21:30 Dose: 20 mg Glucagon (Glucagen Diagnostic Kit) 0 mg IM .STAT PRN; Protocol PRN Reason: Hypoglycemia Protocol Cefepime HCl 1 gm/ Dextrose 50 mls @ 100 mls/hr IVPB Q12H [facility]; Protocol Last Admin: 10/29/18 10:42 Dose: 100 mls/hr Sodium Chloride (Sodium Chloride 0.9%) 1,000 mls @ 100 mls/hr IV .Q10H [facility] Last Admin: 10/29/18 16:00 Dose: 100 mls/hr Methimazole (Tapazole) 20 mg PO Q8 [facility] Last Admin: 10/29/18 13:35 Dose: 20 mg Metoclopramide HCl (Reglan) 10 mg IVP Q12H [facility] Last Admin: 10/29/18 10:39 Dose: 10 mg Midodrine (Proamatine) 10 mg PO TID [facility] Last Admin: 10/29/18 10:40 Dose: 10 mg Modafinil (Provigil) 50 mg PO DAILY [facility] Last Admin: 10/29/18 10:39 Dose: 50 mg Multivitamins (Hexavitamin) 1 tab PEG DAILY [facility] Last Admin: 10/29/18 10:39 Dose: 1 tab Pantoprazole Sodium (Protonix Susp) 40 mg GT Q12H [facility] Last Admin: 10/29/18 10:39 Dose: 40 mg Tamsulosin HCl (Flomax) 0.4 mg PEG DAILY [facility] Last Admin: 10/29/18 10:39 Dose: 0.4 mg Vitamin A (Vitamin A & D Oint Ud Foilpak) 0.5 ea TOP BID [facility] Last Admin: 10/29/18 10:39 Dose: 0.5 ea - Labs Labs: 10/28/18 06:07 10/28/18 06:07 PT 13.3 SECONDS (9.7-12.2) H 10/23/18 06:05 INR 1.2 10/23/18 06:05 APTT 23 SECONDS (21-34) 10/02/18 06:10 - Constitutional Appears: Non-toxic - Head Exam Head Exam: ATRAUMATIC - Eye Exam Eye Exam: EOMI - ENT Exam ENT Exam: Mucous Membranes Moist - Neck Exam Additional comments: With tracheostomy, on vent - Respiratory Exam Respiratory Exam: NORMAL BREATHING PATTERN Additional comments: With tracheostomy, on vent pigtail drainage catheter within the right and left pleural space. - Cardiovascular Exam Cardiovascular Exam: REGULAR RHYTHM, +S1, +S2 - GI/Abdominal Exam GI & Abdominal Exam: Distended, Soft, Normal Bowel Sounds - Extremities Exam Extremities Exam: Pedal Edema - Neurological Exam Neurological Exam: Awake - Psychiatric Exam Psychiatric exam: Flat Affect - Skin Skin Exam: Normal Color Assessment and Plan (1) Pleural effusion Assessment & Plan: -Stable, Afebrile, Off Abx - S/p thoracentesis 10/20/18 with IR, without pigtail placement. --CXR s/p procedure showing significantly improved R-sided effusion. However, repeat CXR on 10/22 worsened again (see reports below) -CXR on 10/13/18 showed Interval significant improvement in right pleural effusion versus pulmonary edema. No pneumothorax. Worsening left pleural effusion versus pulmonary edema and redemonstration of loculated effusion along the left lateral chest wall. Stable position of the tracheostomy tube (see full report)---As patient keeps developing pleural effusions, patient may benefit from pigtail catheter -Continue Duonebs Q4H [facility] with mucomist -Infectious disease, Dr Brock on consult, help appreciated -Imaging: - Chest XR 10/01: Interval development of pleural effusions with loculated component along the right lateral chest wall. Moderate pulmonary venous congestion. Underlying pulmonary edema especially in the right lung is also a consideration. Follow up after medical management is recommended to ensure complete resolution. - Chest XR 10/04: Potential pulmonary vascular congestion vs infiltrates with possible trace left pleural effusion. Improved from 10/02 - Chest XR 10/05: Showing increased pulmonary vascular congestion compared to 10/04 - Chest XR 10/09: showing significant congestion - CXR 10/10: Less dense consolidation right lung base-improved aeration/less passive compressive atelectasis inferred and/or partial clearing of some right pleural fluid. No pneumothorax seen. Extensive bilateral pleural effusions still persist. Less now on the right than before. - CXR 10/17 - Worsening pleural effusions bilaterally. Significant pleural eff usion on the left. - CXR 10/20 - There is opacification left mid to lower lung field secondary to large left-sided effusion. Presumed left basilar atelectasis however infiltrate not excluded. Improved right-sided effusion and atelectasis - CXR 10/22 - In situ tracheostomy tube in good position. Right-sided PICC line terminates in the right axillary region. Further opacification both hemithoraces left greater than right. Findings likely represent large layering effusions and some combination of atelectasis and or infiltrate. -CXR 10/26 - Shows continued bilateral pleural effusions -10/13/18 thoracentesis (right-side only), done: 1000cc of clear fluid were aspirated -10/27/2018: Right and left pleural drainage catheter placed with Dr. Chavis.; Chest CT (10/27/17): Placement of an 8.5 Kisw[place]ili pigtail drainage catheter within the right and left pleural space. Status: Acute (2) Distended abdomen Assessment & Plan: Soft Tube feedings resumed as residual< 200 Abdominal Flat plate: Some stool seen within the right hemicolon. Upper abdomen was not imaged on this study. Degenerative changes in the spine and hips. Impression: Nonspecific bowel gas pattern with relative paucity of bowel gas. Reglan 10mg IV q12h Colace 100mg PO TID Simethicone 80mg PO QID Fleet enema once 10/29/18 Status: Acute (3) UTI (urinary tract infection) Assessment & Plan: VRE/Pseudomonas + Urine, Leukocytosis -MR urine cultures 10/21 +VRE/Pseudomonas. Team suspecting patient likely cultured VRE +/- Pseudomonas -WBC increasing 15.3 today - will continue to follow ID recs -ID following, Dr. Brock -MR blood cultures negative -No Abx at this time -Hernandes in place -Afebrile sice 10/14 (blood cultures repeated) -Urine Cx 09/30 +VRE -Blood Cx 10/14 show no growth x 5 days -Tylenol prn fever Status: Acute (4) Hypotension Assessment & Plan: - Remains low, stable in 90s/50s-60s - Monitor albumin, administer prn doses - Midodrine 10 mg PO TID Status: Acute (5) Prophylactic measure Assessment & Plan: Protonix 40mg GT BID * Lactobacillus 1 cap PO BID * MVI 1x/day * Vitamin C 1,000 NG 1x/day * Trach and Peg * SCD on Right and contraindicated on Left due to DVT * Peg feedings * Pulmcar 40cc/hr * patient had frequent BMs on prior formula; no diarrhea; we have spoken with dietary to change it on 08/19/18 * PICC Line d/c due to coiling * Patient has midline access * Note: speak to patient in [place] to assess neurologic status-->she does follow sometimes * s/p bronchoscopy 08/23 * s/p IVC filter 08/23 * s/p LP 09/15 * s/p multiple thoracenteses * patient is FULL CODE * Provigil 50mg PO daily to promote wakefulness during the day. * Social work note (08/09/18): patient is undocumented, has not health insurance, dc planning will be at home with Disposition: Consider re-consultation for palliative care in order to reestablish goals of care All plans and management discussed with Dr. [place] Status: Acute <[place] J - Last Filed: 11/01/18 19:00> Objective - Vital Signs/Intake and Output Vital Signs (last 24 hours): Temp Pulse Resp BP Pulse Ox 97.4 F L 89 18 107/54 L 100 11/01/18 16:00 11/01/18 16:00 11/01/18 16:00 11/01/18 16:00 11/01/18 16:00 Intake and Output: 11/01/18 11/01/18 06:59 18:59 Intake Total 2325 2285 Output Total 750 525 Balance 1575 1760 - Medications Medications: Current Medications Acetylcysteine (Acetylcysteine 20%) 4 ml INH RQ4 [facility] Last Admin: 11/01/18 16:00 Dose: Not Given Albuterol/Ipratropium (Duoneb 3 Mg/0.5 Mg (3 Ml) Ud) 3 ml INH RQ4 [facility] Last Admin: 11/01/18 16:00 Dose: Not Given Ascorbic Acid (Vitamin C 500 Mg Tab) 1,000 mg NG DAILY [facility] Last Admin: 11/01/18 09:18 Dose: 1,000 mg Aspirin (Aspirin Chewable) 81 mg GT DAILY [facility] Last Admin: 11/01/18 09:18 Dose: 81 mg Dextrose (Dextrose 50% Inj) 0 ml IVP .STAT PRN; Protocol PRN Reason: Hypoglycemia Protocol Dextrose (Glutose 15) 0 gm PO .ONCE PRN; Protocol PRN Reason: Hypoglycemia Protocol Glucagon (Glucagen Diagnostic Kit) 0 mg IM .STAT PRN; Protocol PRN Reason: Hypoglycemia Protocol Cefepime HCl 1 gm/ Dextrose 50 mls @ 100 mls/hr IVPB Q12H [facility]; Protocol Last Admin: 11/01/18 08:41 Dose: 100 mls/hr Sodium Chloride (Sodium Chloride 0.9%) 1,000 mls @ 75 mls/hr IV .[id number] [facility] Last Admin: 11/01/18 05:58 Dose: 75 mls/hr Lactobacillus Acidophilus (Bacid Acidophilus) 1 cap PO BID [facility] Last Admin: 11/01/18 09:23 Dose: 1 cap Methimazole (Tapazole) 10 mg PO Q8 [facility] Last Admin: 11/01/18 05:57 Dose: 10 mg Metoclopramide HCl (Reglan) 10 mg IVP Q12H [facility] Last Admin: 11/01/18 08:41 Dose: 10 mg Midodrine (Proamatine) 10 mg PO TID [facility] Last Admin: 11/01/18 17:42 Dose: 10 mg Modafinil (Provigil) 50 mg PO DAILY [facility] Last Admin: 11/01/18 09:21 Dose: 50 mg Multivitamins (Hexavitamin) 1 tab PEG DAILY [facility] Last Admin: 11/01/18 09:18 Dose: 1 tab Pantoprazole Sodium (Protonix Susp) 40 mg GT Q12H [facility] Last Admin: 11/01/18 08:41 Dose: 40 mg Polyethylene Glycol (Miralax) 17 gm PO BID [facility] Last Admin: 11/01/18 17:42 Dose: 17 gm Simethicone (Mylicon Chew Tab) 80 mg PO QID [facility] Last Admin: 11/01/18 17:42 Dose: 80 mg Tamsulosin HCl (Flomax) 0.4 mg PEG DAILY [facility] Last Admin: 11/01/18 09:19 Dose: 0.4 mg Vitamin A (Vitamin A & D Oint Ud Foilpak) 0.5 ea TOP DAILY [facility] Last Admin: 11/01/18 10:14 Dose: Not Given - Labs Labs: 11/01/18 06:13 11/01/18 06:13 PT 13.3 SECONDS (9.7-12.2) H 10/23/18 06:05 INR 1.2 10/23/18 06:05 APTT 23 SECONDS (21-34) 10/02/18 06:10 Attending/Attestation - Attestation I have personally seen and examined this patient.: Yes I have fully participated in the care of the patient.: Yes I have reviewed all pertinent clinical information, including history, physical exam and plan: Yes Notes (Text): 11/01/18 18:59 This is a late entry. Care of this patient was gone over with resident. [place]itt D.O.
[2018-10-29] MEDS ORDERED: Albumin Human 5% (12.5 gm/250 ml) IV ONE (19:09)
[2018-10-29] MEDS: Simethicone 80 mg Chewtab PO SCH ×2 (22:49→23:00)
[2018-10-30] MEDS: Sodium Chloride 0.9% 1,000 ML IV SCH ×3 (03:12→22:57)
[2018-10-30] MEDS: Albuterol-Ipratrop 3 mg / 0.5 (3 ml) UD INH SCH ×5 (03:15→19:54)
[2018-10-30] MEDS: Acetylcysteine 20% Inhal Soln (4ml) INH SCH ×5 (03:15→19:54)
[2018-10-30] MEDS ORDERED: Metoprolol 1 mg/ml Inj IVP ONE (04:24)
[2018-10-30 05:08] LABS: HEMOGLOBIN 7.4 g/dL (11.0-16.0); MEAN CELL VOLUME 92.8 fL (81.0-99.0); MEAN CORPUSCULAR HEMOGLOBIN 29.6 pg (27.0-31.0); MEAN CORPUSCULAR HGB CONC 31.9 g/dL (33.0-37.0); MEAN PLATELET VOLUME 7.4 fL (7.2-11.7); RBC 2.51 Mil/uL (3.80-5.20); RED CELL DISTRIBUTION WIDTH 20.4 % (11.5-14.5); WHITE BLOOD COUNT 8.8 K/uL (4.8-10.8)
[2018-10-30 05:12] LABS: ALB/GLOB RATIO 0.9 (1.0-2.1); ALBUMIN 2.5 g/dL (3.5-5.0); ALT/SGPT 21 U/L (9-52); AST/SGOT 22 U/L (14-36); BLOOD UREA NITROGEN 26 mg/dL (7-17); CALCIUM 7.3 mg/dl (8.6-10.4); GFR NON-AFRICAN AMERICAN > 60
--- NOTE | 2018-10-30 08:07 | CP.PCM.PN ---
<Cydney Herbert - Last Filed: 10/30/18 20:06> Subjective - Date & Time of Evaluation Date of Evaluation: 10/30/18 Time of Evaluation: 08:05 - Subjective Subjective: PGY-1 Cydney Herbert D.O. Medicine progress note for Dr. Leahy's service: Patient was seen and examined this morning. at bedside. Episode of Afib RVR overnight, given IVP Lopressor 2.5 mg. Patient presently NSR in 80s. patient nonverbal, does not follow commands. No significant clinical change. Objective - Vital Signs/Intake and Output Vital Signs (last 24 hours): Temp Pulse Resp BP Pulse Ox 98.5 F 81 12 78/43 L 100 10/29/18 16:00 10/29/18 16:00 10/29/18 16:00 10/29/18 16:00 10/29/18 16:00 Intake and Output: 10/30/18 10/30/18 06:59 18:59 Intake Total 700 Balance 700 - Medications Medications: Current Medications Acetylcysteine (Acetylcysteine 20%) 4 ml INH RQ4 [facility] Last Admin: 10/30/18 07:53 Dose: 4 ml Albuterol/Ipratropium (Duoneb 3 Mg/0.5 Mg (3 Ml) Ud) 3 ml INH RQ4 [facility] Last Admin: 10/30/18 07:53 Dose: 3 ml Ascorbic Acid (Vitamin C 500 Mg Tab) 1,000 mg NG DAILY [facility] Last Admin: 10/29/18 10:39 Dose: 1,000 mg Aspirin (Aspirin Chewable) 81 mg GT DAILY [facility] Last Admin: 10/29/18 10:42 Dose: 81 mg Dextrose (Dextrose 50% Inj) 0 ml IVP .STAT PRN; Protocol PRN Reason: Hypoglycemia Protocol Dextrose (Glutose 15) 0 gm PO .ONCE PRN; Protocol PRN Reason: Hypoglycemia Protocol Docusate Sodium (Colace) 100 mg PO BID [facility] Last Admin: 10/29/18 17:57 Dose: 100 mg Furosemide (Lasix) 20 mg IVP ONCE PRN PRN Reason: PLEURAL EFFUSION Last Admin: 10/21/18 21:30 Dose: 20 mg Glucagon (Glucagen Diagnostic Kit) 0 mg IM .STAT PRN; Protocol PRN Reason: Hypoglycemia Protocol Cefepime HCl 1 gm/ Dextrose 50 mls @ 100 mls/hr IVPB Q12H [facility]; Protocol Last Admin: 10/29/18 22:00 Dose: 100 mls/hr Sodium Chloride (Sodium Chloride 0.9%) 1,000 mls @ 75 mls/hr IV .[id number] [facility] Last Admin: 10/30/18 03:12 Dose: 75 mls/hr Methimazole (Tapazole) 20 mg PO Q8 [facility] Last Admin: 10/30/18 06:05 Dose: 20 mg Metoclopramide HCl (Reglan) 10 mg IVP Q12H [facility] Last Admin: 10/29/18 21:30 Dose: 10 mg Midodrine (Proamatine) 10 mg PO TID [facility] Last Admin: 10/29/18 17:47 Dose: 10 mg Modafinil (Provigil) 50 mg PO DAILY [facility] Last Admin: 10/29/18 10:39 Dose: 50 mg Multivitamins (Hexavitamin) 1 tab PEG DAILY [facility] Last Admin: 10/29/18 10:39 Dose: 1 tab Pantoprazole Sodium (Protonix Susp) 40 mg GT Q12H [facility] Last Admin: 10/29/18 22:00 Dose: 40 mg Simethicone (Mylicon Chew Tab) 80 mg PO QID [facility] Last Admin: 10/29/18 23:00 Dose: 80 mg Tamsulosin HCl (Flomax) 0.4 mg PEG DAILY [facility] Last Admin: 10/29/18 10:39 Dose: 0.4 mg Vitamin A (Vitamin A & D Oint Ud Foilpak) 0.5 ea TOP BID [facility] Last Admin: 10/29/18 17:57 Dose: 0.5 ea - Labs Labs: 10/30/18 04:55 10/30/18 04:55 PT 13.3 SECONDS (9.7-12.2) H 10/23/18 06:05 INR 1.2 10/23/18 06:05 APTT 23 SECONDS (21-34) 10/02/18 06:10 - Constitutional Appears: No Acute Distress, Chronically Ill - Head Exam Head Exam: ATRAUMATIC, NORMAL INSPECTION - Eye Exam Eye Exam: EOMI - ENT Exam ENT Exam: Mucous Membranes Moist - Respiratory Exam Respiratory Exam: absent: Respiratory Distress Additional comments: b/l chest tubes trach on vent - Cardiovascular Exam Cardiovascular Exam: RRR - GI/Abdominal Exam GI & Abdominal Exam: Distended, Soft, Normal Bowel Sounds - Exam Additional comments: Hernandes - Extremities Exam Additional comments: atrophy - Neurological Exam Neurological Exam: Alert, Altered, Awake. absent: Normal Gait, Oriented x3 - Psychiatric Exam Additional comments: nonverbal - Skin Skin Exam: Dry, Intact, Normal Color, Warm Assessment and Plan - Assessment and Plan (Free Text) Assessment: This is a 52yo F originally admitted to the ICU for Septic shock 2/ to PNA/UTI worsened by cardiac arrest, and anoxic brain injury. Pt is s/p trach and PEG. s/p IVC filter 08/23. Chest tube placement 09/06-09/15. s/p LP 09/15. Patient still unable to be weaned off vent. She has had multiple complications, including DVT and infections. Patient has shown minimal improvement of cognitive function during the course of this hospitalization. Patient does not have any insurance and therefore cannot be placed in rehab/NH. Multiple conversations with regarding poor prognosis- he wished to keep her full code. Plan: Altered mental status- suspect anoxic encephalopathy * Code Blue 07/10 and 07/20 * Patient prior knowledge of 5 languages per but does not always follow commands * CT head: no acute intracranial pathology. Age-related changes. no significant interval change. * Previously very agitated, especially during the night, this has recently improved * Off sedation * Trazodone 25 mg GT QHS * Brain MRI (09/08/18); no definite mass effect or suspicious extra axial collection. no evidence of acute or subacute brain infarction at this time. Borderline pattern of hydrocephalus * will ask neurology to re-evaluate Acute Respiratory Failure- s/p trach on vent, unable to wean * Patient underwent tracheostomy 07/24/18, s/p bronchoscopy 08/23, s/p right chest tube insertion 09/06 * Patient had tolerated trach collars inearly Nov; however she has been on vent to trach since. Fi02: 30% * Pulmonary (Dr. Lozada) on board-->assisting with weaning from trach on vent to trach collar * s/p bronchoscopy (08/23/18) by Dr. Lozada * Pseudomonas aerguinosa * 08/23: Bronchial Washings: pseudomonas Aeruginosa * 08/23: Fungal Culture: Prelim: negative * 08/23: Mycobacterial culture: prelim * Chest physiotherapy * 09/12 CXR shows PICC is coiled in SVC- removed 09/14 * s/p bilateral chest tubes 10/27 * Spoke w/ Neurology Dr Pham, after review of imaging unlikly source of symptoms, most likely anoxic brain injury Pleural effusions- s/p bilateral chest tubes - Thoracentesis on 10/20/18 -CXR s/p procedure showing significantly improved R-sided effusion. However, repeat CXR on 10/22 worsened again (see reports below) -CXR on 10/13/18 showed Interval significant improvement in right pleural effusio n versus pulmonary edema. No pneumothorax. Worsening left pleural effusion versus pulmonary edema and redemonstration of loculated effusion along the left lateral chest wall. Stable position of the tracheostomy tube (see full report) - CXR 10/22 - In situ tracheostomy tube in good position. Right-sided PICC line terminates in the right axillary region. Further opacification both hemithoraces left greater than right. Findings likely represent large layering effusions and some combination of atelectasis and or infiltrate. -CXR 10/26 - Shows continued bilateral pleural effusions -10/13/18 thoracentesis (right-side only), done: 1000cc of clear fluid were aspirated -10/27/2018: Right and left pleural drainage catheter placed with Dr. Chavis.; Chest CT (10/27/17): Placement of an 8.5 Greenlandic pigtail drainage catheter within the right and left pleural space. - f/u repeat CXR 10/31 -Continue Duonebs Q4H [facility] with mucomist Distended abdomen- no BM in 4 days - Tube feedings resumed as residual< 200 - Albumin 12.5 mg daily - Phosphate enema x2 Urinary tract infection- VRE and Pseudomonas -MR urine cultures 10/21 +VRE/Pseudomonas. Team suspecting patient likely cultured VRE +/- Pseudomonas -WBC increasing 15.3 today - will continue to follow ID recs -ID following, Dr. Brock -MR blood cultures negative -No Abx at this time -Hernandes in place -Afebrile sice 10/14 (blood cultures repeated) -Urine Cx 09/30 +VRE -Blood Cx 10/14 show no growth x 5 days -Tylenol prn fever Hypotension - Remains low, stable in 90s/50s-60s - Monitor albumin, administer prn doses - Midodrine 10 mg PO TID Afib RVR- new onet 10/29 - Lopressor 2.5 mg IVP PRN Deconditioning - Patient needs aggressive continued PT/OT - Social work note (08/09/18): patient is undocumented, has not health insurance, dc planning will be at home with Thyroid disorder * Note Thyroid studies taken before amiodarone was given (this is NOT amiodarone induced as her levels were abnormal prior) * Patient does not have prior thyroid history * Endocrinology (Dr. Gayle) on board help appreciated * Thyroid U/S 07/16/18: showed heterogenous thyroid with multiple nodules jayde aterally. She will need outpatient FNA Bx of the complex Left Lobe cyst (please see full report) * Methimazole 20mg PO Q8H * off Propranolol 5 mg PO TID due to hypotension * Monitor LFTs * Recheck TSH, free T4 on 10/31 Septic Shock secondary to Pneumonia and Urinary Tract Infection * Infectious Disease (Dr. Brock) on board-->help appreciated * d/c cefepime 09/12 * Trach Aspirate: Psuedomonas * s/p bronchoscopy (08/23/18) by Dr. Lozada * Pseudomonas aerguinosa * 08/23: Bronchial Washings: pseudomonas Aeruginosa * s/p chest tube 09/06/18, removed 09/15 * Pleural fluid: no growth after 4 days * Chest xray (09/08/18): tracheostomy tube and right sided chest tube as above. Diffuse bilateral hazy opacities could represent of pulmonary venous congestive changes or bilateral infiltrates. b/l effusions left larger than right * Procalcitonin: 2.89 (08/28)-->0.33 * PICC Line removed 09/12 found to be coiled on CXR * 09/15 LP, plts 270 * opening pressures: 21 * f/u cultures and serologies of CSF * Acyclovir 700 mg IV Q8H 09/15-09/25 Anemia Likely Secondary to Chronic Diseases, stable Dysfunctional uterine bleeding * Iron normal, TIBC low, Iron Saturation normal, Ferritin normal * Stool occult blood negative * B12 normal * Folate Normal * Vaginal US: thickened endometrium * Transfused 1 unit PRBC 07/22/18, 2 unit of PRBC 08/13/18 1 unit on 08/17/18, 1 unit 08/23/18 * Patient has been seen by OB Hospitalist; no contraindication to anticoagulation * recommend outpatient workup for vaginal bleeding, no hysterectomy during this hospitalization * Case discussed with early childhood lead teacher recommending against Eliquis in light of bleeding; recommending for DVT ppx and aspirin if patient can tolerate it LLE DVT s/p IVC filter * Eliquis 5 mg PO BID d/c 08/17 * Acute thrombosis of the left common femoral and femoral veins with severe reduction of the venous return on 07/18/18 venous doppler * Patient had completed one month on Eliquis; however she continues to have dysfunction uterine bleeding; cardiology is recommending against eliquis for thrombus given bleeding risk * repeat doppler to see if DVT has resolved by ultrasound repeat * s/p IVC filter (08/23/18) Diabetes, chronic * HgBA1c: 7.8 * Hypoglycemic protocol * Held Lantus 15 units subcutaneous at bedtime Q12 since 08/23/18 * Hypoglycemic 08/23/18 AM * Accuchecks AM and PM * ISS Q12H * off Crestor 5mg PO qHS secondary to LFTs Ppx: VTE: SCD on Right and contraindicated on Left due to DVT GI: Protonix 40mg GT Q12H * Lactobacillus 1 cap PO Q12H * MVI GT daily * Vitamin C 1,000 NG daily * Vitamin D 50,000 IU Q7D PEG feedings- Pulmcare @ 40cc/hr Code status: full code Case was discussed with attending, Dr. Leahy. <Saira Leahy V - Last Filed: 10/30/18 20:48> Objective - Vital Signs/Intake and Output Vital Signs (last 24 hours): Temp Pulse Resp BP Pulse Ox 97.5 F L 74 19 107/59 L 100 10/30/18 20:00 10/30/18 20:00 10/30/18 20:00 10/30/18 20:00 10/30/18 20:00 Intake and Output: 10/30/18 10/31/18 18:59 06:59 Intake Total 1265 Output Total 450 Balance 815 - Medications Medications: Current Medications Acetylcysteine (Acetylcysteine 20%) 4 ml INH RQ4 [facility] Last Admin: 10/30/18 19:54 Dose: 4 ml Albuterol/Ipratropium (Duoneb 3 Mg/0.5 Mg (3 Ml) Ud) 3 ml INH RQ4 [facility] Last Admin: 10/30/18 19:54 Dose: 3 ml Ascorbic Acid (Vitamin C 500 Mg Tab) 1,000 mg NG DAILY [facility] Last Admin: 10/30/18 09:38 Dose: 1,000 mg Aspirin (Aspirin Chewable) 81 mg GT DAILY [facility] Last Admin: 10/30/18 09:37 Dose: 81 mg Dextrose (Dextrose 50% Inj) 0 ml IVP .STAT PRN; Protocol PRN Reason: Hypoglycemia Protocol Dextrose (Glutose 15) 0 gm PO .ONCE PRN; Protocol PRN Reason: Hypoglycemia Protocol Docusate Sodium (Colace) 100 mg PO BID [facility] Last Admin: 10/30/18 17:27 Dose: 100 mg Glucagon (Glucagen Diagnostic Kit) 0 mg IM .STAT PRN; Protocol PRN Reason: Hypoglycemia Protocol Cefepime HCl 1 gm/ Dextrose 50 mls @ 100 mls/hr IVPB Q12H [facility]; Protocol Last Admin: 10/30/18 09:38 Dose: 100 mls/hr Sodium Chloride (Sodium Chloride 0.9%) 1,000 mls @ 75 mls/hr IV .[id number] [facility] Last Admin: 10/30/18 14:25 Dose: 75 mls/hr Methimazole (Tapazole) 20 mg PO Q8 [facility] Last Admin: 10/30/18 13:29 Dose: 20 mg Metoclopramide HCl (Reglan) 10 mg IVP Q12H [facility] Last Admin: 10/30/18 09:36 Dose: 10 mg Midodrine (Proamatine) 10 mg PO TID [facility] Last Admin: 10/30/18 17:27 Dose: 10 mg Modafinil (Provigil) 50 mg PO DAILY [facility] Last Admin: 10/30/18 09:37 Dose: 50 mg Multivitamins (Hexavitamin) 1 tab PEG DAILY [facility] Last Admin: 10/30/18 09:38 Dose: 1 tab Pantoprazole Sodium (Protonix Susp) 40 mg GT Q12H [facility] Last Admin: 10/30/18 10:20 Dose: 40 mg Simethicone (Mylicon Chew Tab) 80 mg PO QID [facility] Last Admin: 10/30/18 17:27 Dose: 80 mg Tamsulosin HCl (Flomax) 0.4 mg PEG DAILY [facility] Last Admin: 10/30/18 09:38 Dose: 0.4 mg Vitamin A (Vitamin A & D Oint Ud Foilpak) 0.5 ea TOP BID [facility] Last Admin: 10/30/18 17:27 Dose: 0.5 ea - Labs Labs: 10/30/18 04:55 10/30/18 04:55 PT 13.3 SECONDS (9.7-12.2) H 10/23/18 06:05 INR 1.2 10/23/18 06:05 APTT 23 SECONDS (21-34) 10/02/18 06:10 Assessment and Plan (1) Septic shock Status: Acute (2) Acute respiratory failure Status: Acute (3) Urinary tract infection Status: Acute (4) Acute renal failure Status: Acute (5) Aspiration pneumonia Status: Acute (6) Diabetes mellitus Status: Chronic (7) Ventricular arrhythmia Status: Acute (8) Hyperthyroidism Status: Acute (9) Anemia Status: Acute (10) Prophylactic measure Status: Acute Attending/Attestation - Attestation I have personally seen and examined this patient.: Yes I have fully participated in the care of the patient.: Yes I have reviewed all pertinent clinical information, including history, physical exam and plan: Yes Notes (Text): Patient seen, examined, and case discussed with day-time resident. This is a 53-year-old female with a prolonged hospitalization for treatment for septic shock complicated by both pneumonia and urinary tract infections, anoxic encephalopathy likely secondary to 2 cardiac arrest during hospitalization, hyperthyroidism which has been controlled on methimazole, shock liver which is now recovered, history of apical thrombus which is currently being treated with aspirin and is not on anticoagulation secondary to worsening heavy vaginal bleeding which required multiple blood transfusions during hospitalization, history of left lower extremity DVT which falling 1 month of anticoagulation has radiographically disappeared on repeat ultrasound and has now an IVC filter, as well as diabetes, vitamin D deficiency. Patient recently had a chest x-ray completed on Oct 13 wherein she went through a thoracentesis for pleural effusion. We have repeated chest xray rec ently.I have discussed with Dr. Lozada, patient will likely need pigtail catheter given the reaccumulation of fluid. CT chest on October 23, 2018 noted large bilateral pleural effusions with associated consolidations. Trace pericardial effusion. Borderline cardiomegaly. Enlarged heterogeneous partially imaged thyroid gland. Tracheostomy tube. Limited visualization of the noncontrast upper abdominal IVC filter. Bilateral renal cyst. Small perihepatic and perisplenic ascites. Pancreatic atrophy. Possible tiny gallstone. Indeterminate 13 mm left upper lobe nodule indeterminate. Patient under underwent chest tube placement with interventional radiology on October [address] placement of 8.5 Greenlandic pigtail drain catheter within the right and left pleural space. Trach aspirate noted for Pseudomonas. Patient was placed on Maxipime per infectious disease. Pleural fluid shows no growth. Will need to monitor fluid output. Patient is noted to be incontinent of the urine has been straight cath when she does retain. Patient was on [address] way Hernandes since 10/05/17 evening with [facility] to clean out urine which she is off. Patient is off antibiotic since 10/05/17. Blood cultures 10/14/18 which show no growth for 5 days X2. She had a fever on 10/21/18 which was 100.4; has remained afebrile since. Follow-up blood culture (10/21/18) werre negative. Blood culture from 10/28/18 so far no growth. Also note patient did underwent a lumbar puncture on September 15 HSV-2 IgM antibody, VDRL, and the West Nile are still pending. Physical therapy had signed off on September 24 because patient is not a candidate because she cannot follow directions. Patient would be an ideal candidate for LTAC however she does not have insurance, her is not from this country which limits her ability for services. The other thing is patient still remains trach to vent as well. Also to note patient does have sequential compressive stocking since the follow- up venous Doppler which did indicate that the clot had cleared.Patient does have noted muscle wasting. Wound care re-evaluated the patient on 10/05/18 for skin break down over the flexor surfaces over the knee. New recommendations were placed. Patient has dressings over the sites. Patient's midodrine increased to 10mg PO TID to increase blood pressure recently. Overnight, patient had an episode of atrial fib RVR which required Lopressor given by nighttime resident. We will repeat thyroid studies for the morning to see if patient's thyroid is controlled. Patient given dose of Albumin yesterday to help improve blood pressure. Patient given additional Albumin today. Patient complete phosphate enema overnight; did not have a bowel movement at time of rounds. Abdominal xray noted for constipation only. Patient had bowel movement later in the day. Patient's feeds restarted at low rate 20cc/hr and will monitor for residual stool. Patient noted to have poor prognosis though she has survived many things during her hospitalization. Her who remains in high spirits hopes that she will recover and has been persistently at bedside every single day since being hospitalized in July.
[2018-10-30] MEDS: Vitamins A & D Oint UD Foilpak TOP SCH ×2 (09:35→17:27)
[2018-10-30] MEDS: Modafinil 50 MG TAB PO SCH (09:37)
[2018-10-30] MEDS: Multiple Vitamins Tab PEG SCH (09:38)
[2018-10-30] MEDS: Simethicone 80 mg Chewtab PO SCH ×4 (09:41→21:06)
[2018-10-30] MEDS: Pantoprazole 40 mg Susp UD GT SCH ×2 (10:20→21:07)
--- NOTE | 2018-10-30 12:04 | CP.PCM.PN ---
Subjective - Date & Time of Evaluation Date of Evaluation: 10/30/18 Time of Evaluation: 08:00 - Subjective Subjective: afeb on IV Cefepime at bedside NAD Objective - Vital Signs/Intake and Output Vital Signs (last 24 hours): Temp Pulse Resp BP Pulse Ox 97.3 F L 110 H 16 102/57 L 100 10/30/18 08:00 10/30/18 08:00 10/30/18 04:00 10/30/18 04:00 10/30/18 08:00 Intake and Output: 10/30/18 10/30/18 06:59 18:59 Intake Total 2000 485 Output Total 830 Balance 1170 485 - Medications Medications: Current Medications Acetylcysteine (Acetylcysteine 20%) 4 ml INH RQ4 [facility] Last Admin: 10/30/18 11:11 Dose: 4 ml Albuterol/Ipratropium (Duoneb 3 Mg/0.5 Mg (3 Ml) Ud) 3 ml INH RQ4 [facility] Last Admin: 10/30/18 11:11 Dose: 3 ml Ascorbic Acid (Vitamin C 500 Mg Tab) 1,000 mg NG DAILY [facility] Last Admin: 10/30/18 09:38 Dose: 1,000 mg Aspirin (Aspirin Chewable) 81 mg GT DAILY [facility] Last Admin: 10/30/18 09:37 Dose: 81 mg Dextrose (Dextrose 50% Inj) 0 ml IVP .STAT PRN; Protocol PRN Reason: Hypoglycemia Protocol Dextrose (Glutose 15) 0 gm PO .ONCE PRN; Protocol PRN Reason: Hypoglycemia Protocol Docusate Sodium (Colace) 100 mg PO BID [facility] Last Admin: 10/30/18 09:41 Dose: 100 mg Furosemide (Lasix) 20 mg IVP ONCE PRN PRN Reason: PLEURAL EFFUSION Last Admin: 10/21/18 21:30 Dose: 20 mg Glucagon (Glucagen Diagnostic Kit) 0 mg IM .STAT PRN; Protocol PRN Reason: Hypoglycemia Protocol Cefepime HCl 1 gm/ Dextrose 50 mls @ 100 mls/hr IVPB Q12H [facility]; Protocol Last Admin: 10/30/18 09:38 Dose: 100 mls/hr Sodium Chloride (Sodium Chloride 0.9%) 1,000 mls @ 75 mls/hr IV .[id number] [facility] Last Admin: 10/30/18 03:12 Dose: 75 mls/hr Methimazole (Tapazole) 20 mg PO Q8 [facility] Last Admin: 10/30/18 06:05 Dose: 20 mg Metoclopramide HCl (Reglan) 10 mg IVP Q12H [facility] Last Admin: 10/30/18 09:36 Dose: 10 mg Midodrine (Proamatine) 10 mg PO TID [facility] Last Admin: 10/30/18 09:36 Dose: 10 mg Modafinil (Provigil) 50 mg PO DAILY [facility] Last Admin: 10/30/18 09:37 Dose: 50 mg Multivitamins (Hexavitamin) 1 tab PEG DAILY [facility] Last Admin: 10/30/18 09:38 Dose: 1 tab Pantoprazole Sodium (Protonix Susp) 40 mg GT Q12H [facility] Last Admin: 10/30/18 10:20 Dose: 40 mg Simethicone (Mylicon Chew Tab) 80 mg PO QID [facility] Last Admin: 10/30/18 09:41 Dose: 80 mg Tamsulosin HCl (Flomax) 0.4 mg PEG DAILY [facility] Last Admin: 10/30/18 09:38 Dose: 0.4 mg Vitamin A (Vitamin A & D Oint Ud Foilpak) 0.5 ea TOP BID [facility] Last Admin: 10/30/18 09:35 Dose: 0.5 ea - Labs Labs: 10/30/18 04:55 10/30/18 04:55 PT 13.3 SECONDS (9.7-12.2) H 10/23/18 06:05 INR 1.2 10/23/18 06:05 APTT 23 SECONDS (21-34) 10/02/18 06:10 - Constitutional Appears: Non-toxic, Chronically Ill - Head Exam Head Exam: NORMOCEPHALIC - Eye Exam Eye Exam: absent: Scleral icterus - ENT Exam ENT Exam: Mucous Membranes Dry - Neck Exam Neck Exam: absent: Lymphadenopathy - Respiratory Exam Respiratory Exam: Decreased Breath Sounds, Prolonged Expiratory Phase, Rhonchi Additional comments: chest tubes in place - Cardiovascular Exam Cardiovascular Exam: REGULAR RHYTHM - GI/Abdominal Exam GI & Abdominal Exam: Distended, Soft - Rectal Exam Rectal Exam: Deferred - Exam Exam: NORMAL INSPECTION - Extremities Exam Extremities Exam: Pedal Edema - Back Exam Back Exam: absent: CVA tenderness (L), CVA tenderness (R) Assessment and Plan (1) NEHA (acute kidney injury) Status: Acute (2) Acute renal failure Status: Acute (3) Acute respiratory failure Status: Acute (4) Aspiration pneumonia Status: Acute (5) Septic shock Status: Acute (6) Urinary tract infection Status: Acute (7) Diabetes mellitus Status: Chronic (8) Anoxic brain damage Status: Acute
[2018-10-30] MEDS ORDERED: Albumin Human 5% (12.5 gm/250 ml) IV ONE (14:00)
[2018-10-31] MEDS: Acetylcysteine 20% Inhal Soln (4ml) INH SCH ×7 (00:08→23:48)
[2018-10-31] MEDS: Albuterol-Ipratrop 3 mg / 0.5 (3 ml) UD INH SCH ×7 (00:08→23:48)
[2018-10-31] MEDS: Sodium Chloride 0.9% 1,000 ML IV SCH ×3 (04:52→19:11)
[2018-10-31 05:59] LABS: BASO # 0.1 K/uL (0.0-0.2); BASO % 0.9 % (0.0-2.0); EOS # 0.6 K/uL (0.0-0.7); EOS % 6.7 % (0.0-4.0); HEMOGLOBIN 10.2 g/dL (11.0-16.0); LYMPH # 1.1 K/uL (1.0-4.3); LYMPH % 12.8 % (20.0-40.0); MEAN CELL VOLUME 91.7 fL (81.0-99.0); MEAN CORPUSCULAR HEMOGLOBIN 29.8 pg (27.0-31.0); MEAN CORPUSCULAR HGB CONC 32.5 g/dL (33.0-37.0); MEAN PLATELET VOLUME 7.8 fL (7.2-11.7); MONO # 0.3 K/uL (0.0-0.8); MONO % 3.3 % (0.0-10.0); NEUT # 6.8 K/uL (1.8-7.0); NEUT % 76.3 % (50.0-75.0); NRBC % 0.1 % (0.0-2.0); RBC 3.41 Mil/uL (3.80-5.20); WHITE BLOOD COUNT 8.9 K/uL (4.8-10.8)
--- NOTE | 2018-10-31 07:37 | CP.PCM.PN ---
<Cydney Herbert - Last Filed: 10/31/18 20:42> Subjective - Date & Time of Evaluation Date of Evaluation: 10/31/18 Time of Evaluation: 07:30 - Subjective Subjective: PGY-1 Cydney Herbert D.O. Medicine progress note for Dr. Leahy's service: Patient was seen and examined this morning. She is sleeping, no acute distress. Still nonverbal. No significant clinical change. Nursing reports patient had a BM yesterday after enema. Abdomen is still distended. Objective - Vital Signs/Intake and Output Vital Signs (last 24 hours): Temp Pulse Resp BP Pulse Ox 97.8 F 83 12 118/58 L 100 10/31/18 04:00 10/31/18 04:00 10/31/18 04:00 10/31/18 04:00 10/31/18 04:00 Intake and Output: 10/31/18 10/31/18 06:59 18:59 Intake Total 1235 Output Total 1700 Balance -465 - Medications Medications: Current Medications Acetylcysteine (Acetylcysteine 20%) 4 ml INH RQ4 MANOLO Last Admin: 10/31/18 03:47 Dose: 4 ml Albuterol/Ipratropium (Duoneb 3 Mg/0.5 Mg (3 Ml) Ud) 3 ml INH RQ4 MANOLO Last Admin: 10/31/18 06:47 Dose: 3 ml Ascorbic Acid (Vitamin C 500 Mg Tab) 1,000 mg NG DAILY [facility] Last Admin: 10/30/18 09:38 Dose: 1,000 mg Aspirin (Aspirin Chewable) 81 mg GT DAILY [facility] Last Admin: 10/30/18 09:37 Dose: 81 mg Dextrose (Dextrose 50% Inj) 0 ml IVP .STAT PRN; Protocol PRN Reason: Hypoglycemia Protocol Dextrose (Glutose 15) 0 gm PO .ONCE PRN; Protocol PRN Reason: Hypoglycemia Protocol Docusate Sodium (Colace) 100 mg PO BID [facility] Last Admin: 10/30/18 17:27 Dose: 100 mg Glucagon (Glucagen Diagnostic Kit) 0 mg IM .STAT PRN; Protocol PRN Reason: Hypoglycemia Protocol Cefepime HCl 1 gm/ Dextrose 50 mls @ 100 mls/hr IVPB Q12H MANOLO; Protocol Last Admin: 10/30/18 21:00 Dose: 100 mls/hr Sodium Chloride (Sodium Chloride 0.9%) 1,000 mls @ 75 mls/hr IV .[id number] [facility] Last Admin: 10/31/18 04:52 Dose: 75 mls/hr Methimazole (Tapazole) 20 mg PO Q8 [facility] Last Admin: 10/31/18 06:00 Dose: 20 mg Metoclopramide HCl (Reglan) 10 mg IVP Q12H [facility] Last Admin: 10/30/18 21:07 Dose: 10 mg Midodrine (Proamatine) 10 mg PO TID [facility] Last Admin: 10/30/18 17:27 Dose: 10 mg Modafinil (Provigil) 50 mg PO DAILY [facility] Last Admin: 10/30/18 09:37 Dose: 50 mg Multivitamins (Hexavitamin) 1 tab PEG DAILY [facility] Last Admin: 10/30/18 09:38 Dose: 1 tab Pantoprazole Sodium (Protonix Susp) 40 mg GT Q12H [facility] Last Admin: 10/30/18 21:07 Dose: 40 mg Simethicone (Mylicon Chew Tab) 80 mg PO QID [facility] Last Admin: 10/30/18 21:06 Dose: 80 mg Tamsulosin HCl (Flomax) 0.4 mg PEG DAILY [facility] Last Admin: 10/30/18 09:38 Dose: 0.4 mg Vitamin A (Vitamin A & D Oint Ud Foilpak) 0.5 ea TOP BID [facility] Last Admin: 10/30/18 17:27 Dose: 0.5 ea - Labs Labs: 10/31/18 05:53 10/30/18 04:55 PT 13.3 SECONDS (9.7-12.2) H 10/23/18 06:05 INR 1.2 10/23/18 06:05 APTT 23 SECONDS (21-34) 10/02/18 06:10 - Additional Findings Additional findings: - Constitutional Appears: No Acute Distress, Chronically Ill - Head Exam Head Exam: ATRAUMATIC, NORMAL INSPECTION - Eye Exam Eye Exam: EOMI, PERRL - ENT Exam ENT Exam: Mucous Membranes Moist - Respiratory Exam Respiratory Exam: absent: Respiratory Distress Additional comments: b/l chest tubes trach on vent - Cardiovascular Exam Cardiovascular Exam: RRR - GI/Abdominal Exam GI & Abdominal Exam: Distended, Soft, Normal Bowel Sounds PEG - Exam Additional comments: Hernandes - Extremities Exam Additional comments: diffuse atrophy/muscle wasting - Neurological Exam Neurological Exam: Alert, Altered, Awake. absent: Normal Gait, Oriented x3 - Psychiatric Exam Additional comments: nonverbal - Skin Skin Exam: Dry, Intact, Normal Color, Warm Assessment and Plan - Assessment and Plan (Free Text) Assessment: This is a 52 yo female originally admitted to the ICU for septic shock 2/2 to PNA/UTI worsened by cardiac arrest and anoxic brain injury. Patient is s/p trach and PEG. Patient still unable to be weaned off vent. She has had multiple complications, including DVT and infections. s/p IVC filter 08/23. s/p chest tube placement 09/06-09/15. s/p LP 09/15. Patient has shown minimal improvement of cognitive function during the course of this hospitalization. Patient does not have any insurance and therefore cannot be placed in rehab/NH. Multiple conversations with regarding poor prognosis- he wishes to keep her full code. Plan: Altered mental status/Encephalopathy- suspect anoxic encephalopathy - Code Blue 07/10 and 07/20 - Off sedation - Modafinil 50 mg PO daily - CT head (08/28/18): no hemorrhage or midline shift - MRI brain (09/08/18): no definite mass effect or suspicious extra axial collection. No evidence of acute or subacute brain infarction at this time. Borderline pattern of hydrocephalus - LP 09/15/18: normal opening pressure - Neurology consulted (George/Ankit) Acute Respiratory Failure- s/p trach on vent, unable to wean - Tracheostomy 07/24/18, s/p bronchoscopy 08/23 - Patient had tolerated trach collars in early Aug 2018; however she has been on vent to trach since. Fi02: 40% - Bronchoscopy (08/23/18) by Dr. Lozada * Bronchial Washings: Pseudomonas Aeruginosa * Fungal Culture: Prelim: negative * Mycobacterial culture: prelim - Chest physiotherapy - Most recent CT chest (10/27/18): Large bilateral pleural effusions and associated consolidations. Trace pericardial effusion. Borderline cardiomegaly. Enlarged heterogeneous partially imaged thyroid gland. - Duonebs Q4H MANOLO - Mucomist Q4H [facility] - Pulmonary consulted ([place]) Pleural effusions- s/p bilateral chest tubes - 10/13/18: Thoracentesis (right-side only), done: 1000cc of clear fluid were aspirated- Thoracentesis on 10/20/18 - 10/27/2018: Right and left pleural drainage catheter placed with Dr. Chavis.; Chest CT (10/27/17): Placement of an 8.5 [place] pigtail drainage catheter within the right and left pleural space. - Multiple chest tubes for effusions, most recent s/p bilateral chest tubes 10/27 - Most recent CXR (10/31/18): Status post bilateral chest tube placements. Mar ked reduction of bilateral pleural effusions, commensurate re-expansion of both lungs. Distended abdomen- suspect constipation - AXR (10/28/18): Nonspecific bowel gas pattern with relative paucity of bowel gas. - Tube feedings resumed as residual < 200 - Phosphate enema x2 - Reglan 10 mg IV Q12H - Miralax PEG BID - Simethicone 80 mg PEG QID Thyroid disorder - Thyroid US (07/16/18): Heterogeneous thyroid echotexture. Numerous nodules as described above. Suggest percutaneous biopsy of the following suspicious nodules; 1.8 x 0.9 x 1.7 cm right lower pole nodule, 1.0 x 0.7 x 0.9 cm right upper pole lesion with intracystic vascular nodule, complex left upper pole nodule measuring 2.1 x 1.5 x 1.8 cm. - Note: Thyroid studies taken before amiodarone was given (this is NOT amiodarone induced as her levels were abnormal prior) - TSH <0.02 in 07/2018, 10/31/18 TSH 18.10 - Free T4 >3 in 07/2018, 10/31/2018 free T4 0.24 - Off Propranolol 5 mg PO TID due to hypotension - Decrease Methimazole to 10 mg PO Q8H - Endocrinology consulted (Cam) Hypotension - Remains low, stable in 90s/50s-60s - Monitor albumin, administer PRN doses - Midodrine 10 mg PEG TID - NS @ 75 Atrial fibrillation RVR - EKG (10/29/18): Afib HR 130 - Lopressor 2.5 mg IVP PRN - Cardiology consulted (Nolan) Deconditioning - Patient needs aggressive continued PT/OT- PT signed off as patient does not fo llow directions - Nursing moves patient OOB to chair - Social work note (08/09/18): patient is undocumented, has not health insurance, discharge planning will be at home with Septic Shock secondary to Pneumonia and Urinary Tract Infection (VRE and Pseudomonas) - Leukocytosis resolved - Afebrile since 10/21/18 - Most recent blood cultures negative - Most recent urine cultures (10/21/18) +VRE/Pseudomonas. Suspectpatient likely cultured VRE +/- Pseudomonas - Hernandes in place - Cefepime 1 g Q12H- started 10/27 - ID consulted (Vinod) Anemia 2/2 to Chronic Diseases +/- Dysfunctional uterine bleeding, stable - Stool occult blood negative - Iron normal, TIBC low, Iron Saturation normal, Ferritin normal - B12, folate normal - Vaginal US: thickened endometrium - Transfused 1 unit PRBC 07/22/18, 2 unit of PRBC 08/13/18 1 unit on 08/17/18, 1 unit 08/23/18 - OBGYN consulted (Gilberto)- no hysterectomy LLE DVT s/p IVC filter - Venous Doppler (07/18/18): Acute thrombosis of the left common femoral and femoral veins with severe reduction of the venous return - Resolved on repeat imaging - Patient had completed one month on Eliquis; however she continued to have dysfunction uterine bleeding; cardiology rec against Eliquis given bleeding risk - s/p IVC filter (08/23/18) - Vasc surgery consulted (Vicky) Apical thrombus - ASA 81 mg PEG daily Type 2 diabetes mellitus, chronic - HgBA1c: 7.8 - Hypoglycemia protocol - Accuchecks Q6H - ISS Q6H Vtach- Code blue x2 (07/10/18) - Cardiology consulted (Nolan) Ppx: VTE: SCDs GI: Protonix 40mg GT Q12H * Lactobacillus 1 cap PO Q12H * MVI GT daily * Vitamin C 1,000 NG daily * Vitamin D 50,000 IU Q7D PEG feedings: [facility]mocare goal rate 40 mL/hr Code status: full code- Palliative consulted Case was discussed with attending, Dr. Leahy. <Saira Leahy V - Last Filed: 11/01/18 18:25> Objective - Vital Signs/Intake and Output Vital Signs (last 24 hours): Temp Pulse Resp BP Pulse Ox 97.4 F L 89 18 107/54 L 100 11/01/18 16:00 11/01/18 16:00 11/01/18 16:00 11/01/18 16:00 11/01/18 16:00 Intake and Output: 11/01/18 11/01/18 06:59 18:59 Intake Total 2325 600 Output Total 750 Balance 1575 600 - Medications Medications: Current Medications Acetylcysteine (Acetylcysteine 20%) 4 ml INH RQ4 [facility]OLO Last Admin: 11/01/18 16:00 Dose: Not Given Albuterol/Ipratropium (Duoneb 3 Mg/0.5 Mg (3 Ml) Ud) 3 ml INH RQ4 [facility] Last Admin: 11/01/18 16:00 Dose: Not Given Ascorbic Acid (Vitamin C 500 Mg Tab) 1,000 mg NG DAILY [facility] Last Admin: 11/01/18 09:18 Dose: 1,000 mg Aspirin (Aspirin Chewable) 81 mg GT DAILY [facility] Last Admin: 11/01/18 09:18 Dose: 81 mg Dextrose (Dextrose 50% Inj) 0 ml IVP .STAT PRN; Protocol PRN Reason: Hypoglycemia Protocol Dextrose (Glutose 15) 0 gm PO .ONCE PRN; Protocol PRN Reason: Hypoglycemia Protocol Glucagon (Glucagen Diagnostic Kit) 0 mg IM .STAT PRN; Protocol PRN Reason: Hypoglycemia Protocol Cefepime HCl 1 gm/ Dextrose 50 mls @ 100 mls/hr IVPB Q12H [facility]; Protocol Last Admin: 11/01/18 08:41 Dose: 100 mls/hr Sodium Chloride (Sodium Chloride 0.9%) 1,000 mls @ 75 mls/hr IV .[id number] [facility] Last Admin: 11/01/18 05:58 Dose: 75 mls/hr Lactobacillus Acidophilus (Bacid Acidophilus) 1 cap PO BID [facility] Last Admin: 11/01/18 09:23 Dose: 1 cap Methimazole (Tapazole) 10 mg PO Q8 [facility] Last Admin: 11/01/18 05:57 Dose: 10 mg Metoclopramide HCl (Reglan) 10 mg IVP Q12H [facility] Last Admin: 11/01/18 08:41 Dose: 10 mg Midodrine (Proamatine) 10 mg PO TID [facility] Last Admin: 11/01/18 17:42 Dose: 10 mg Modafinil (Provigil) 50 mg PO DAILY [facility] Last Admin: 11/01/18 09:21 Dose: 50 mg Multivitamins (Hexavitamin) 1 tab PEG DAILY [facility] Last Admin: 11/01/18 09:18 Dose: 1 tab Pantoprazole Sodium (Protonix Susp) 40 mg GT Q12H [facility] Last Admin: 11/01/18 08:41 Dose: 40 mg Polyethylene Glycol (Miralax) 17 gm PO BID [facility] Last Admin: 11/01/18 17:42 Dose: 17 gm Simethicone (Mylicon Chew Tab) 80 mg PO QID [facility] Last Admin: 11/01/18 17:42 Dose: 80 mg Tamsulosin HCl (Flomax) 0.4 mg PEG DAILY [facility] Last Admin: 11/01/18 09:19 Dose: 0.4 mg Vitamin A (Vitamin A & D Oint Ud Foilpak) 0.5 ea TOP DAILY [facility] Last Admin: 11/01/18 10:14 Dose: Not Given - Labs Labs: 11/01/18 06:13 11/01/18 06:13 PT 13.3 SECONDS (9.7-12.2) H 10/23/18 06:05 INR 1.2 10/23/18 06:05 APTT 23 SECONDS (21-34) 10/02/18 06:10 Assessment and Plan (1) Septic shock Status: Acute (2) Acute respiratory failure Status: Acute (3) Urinary tract infection Status: Acute (4) Acute renal failure Status: Acute (5) Aspiration pneumonia Status: Acute (6) Diabetes mellitus Status: Chronic (7) Ventricular arrhythmia Status: Acute (8) Hyperthyroidism Status: Acute (9) Anemia Status: Acute (10) Prophylactic measure Status: Acute Attending/Attestation - Attestation I have personally seen and examined this patient.: Yes I have fully participated in the care of the patient.: Yes I have reviewed all pertinent clinical information, including history, physical exam and plan: Yes Notes (Text): Patient seen, examined, and case discussed with day-time resident. This is a 53-year-old female with a prolonged hospitalization for treatment for septic shock complicated by both pneumonia and urinary tract infections, anoxic encephalopathy likely secondary to 2 cardiac arrest during hospitalization, hyperthyroidism which has been controlled on methimazole, shock liver which is now recovered, history of apical thrombus which is currently being treated with aspirin and is not on anticoagulation secondary to worsening heavy vaginal bleeding which required multiple blood transfusions during hospitalization, history of left lower extremity DVT which falling 1 month of anticoagulation has radiographically disappeared on repeat ultrasound and has now an IVC filter, as well as diabetes, vitamin D deficiency. Patient recently had a chest x-ray completed on Oct 13 wherein she went through a thoracentesis for pleural effusion. We have repeated chest xray recently.I have discussed with Dr. Lozada, patient will likely need pigtail catheter given the reaccumulation of fluid. CT chest on October 23, 2018 noted large bilateral pleural effusions with associated consolidations. Trace pericardial effusion. Borderline cardiomegaly. Enlarged heterogeneous partially imaged thyroid gland. Tracheostomy tube. Limited visualization of the noncontrast upper abdominal IVC filter. Bilateral renal cyst. Small perihepatic and perisplenic ascites. Panc reatic atrophy. Possible tiny gallstone. Indeterminate 13 mm left upper lobe nodule indeterminate. Patient under underwent chest tube placement with interventional radiology on October [address] placement of 8.5 [place] pigtail drain catheter within the right and left pleural space. Trach aspirate noted for Pseudomonas. Patient was placed on Maxipime per infectious disease. Pleural fluid shows no growth. Will need to monitor fluid output. Patient is noted to be incontinent of the urine has been straight cath when she does retain. Patient was on [address] way Hernandse since 10/05/17 evening with CBI to clean out urine which she is off. Patient is off antibiotic since 10/05/17. Blood cu ltures 10/14/18 which show no growth for 5 days X2. She had a fever on 10/21/18 which was 100.4; has remained afebrile since. Follow-up blood culture (10/21/18) werre negative. Blood culture from 10/28/18 so far no growth. Also note patient did underwent a lumbar puncture on September 15 HSV-2 IgM ant ibody, VDRL, and the West Nile are still pending. Physical therapy had signed off on September 24 because patient is not a candidate because she cannot follow directions. Patient would be an ideal candidate for LTAC however she does not have insurance, her is [place] from this [place] which limits her ability for services. The other thing is patient still remains trach to vent as well. Also to note patient does have sequential compressive stocking since the follow- up venous Doppler which did indicate that the clot had cleared.Patient does have noted muscle wasting. Wound care re-evaluated the patient on 10/05/18 for skin break down over the flexor surfaces over the knee. New recommendations were placed. Patient has dressings over the sites. Patient's midodrine increased to 10mg PO TID to increase blood pressure recently. Evening, 10/30/18 patient had an episode of atrial fib RVR which required Lopressor given by nighttime resident. We repeated thyroid studies with elevated TSH, Free T4 normal. We will f/u with endocrinology regarding dose adjustment of methiazole. Patient given dose of Albumin today to help improve blood pressure. Patient ordered for phosphate enema overnight. patient restarted on tube feedings 10/30/18. Chest xray was repeated it is improving while has chest tubes. Patient noted to have poor prognosis though she has survived many things during her hospitalization. Her who remains in high spirits hopes that she will recover and has been persistently at bedside every single day since being hospitalized in July.
[2018-10-31] MEDS: Pantoprazole 40 mg Susp UD GT SCH ×2 (08:19→21:42)
[2018-10-31] MEDS: Vitamins A & D Oint UD Foilpak TOP SCH ×2 (09:59→17:53)
[2018-10-31] MEDS: Multiple Vitamins Tab PEG SCH (09:59)
[2018-10-31] MEDS: Modafinil 50 MG TAB PO SCH (09:59)
[2018-10-31] MEDS: Simethicone 80 mg Chewtab PO SCH ×4 (10:13→21:44)
--- NOTE | 2018-10-31 12:10 | RAD ---
Date of service: 10/31/2018 HISTORY: Follow-up effusions Relevant interventional procedure(s): 10/27/2018 placement of bilateral chest tubes and thoracentesis. COMPARISON: 10/26/2018 FINDINGS: LUNGS: Substantial improvement in aeration of both lungs. PLEURA: Near complete resolution of both pleural effusions. Bilateral pigtail catheters in satisfactory position. CARDIOVASCULAR: No atherosclerotic calcification present Normal. OSSEOUS STRUCTURES: No significant abnormalities. VISUALIZED UPPER ABDOMEN: Gastrostomy tube identified. OTHER FINDINGS: Stable, satisfactory position of tracheostomy device. IMPRESSION: Status post bilateral chest tube placements. Marked reduction of bilateral pleural effusions, commensurate re-expansion of both lungs.
[2018-10-31] MEDS: POLYETHYLENE GLYCOL 3350 17 GM/Dose PACKET PO SCH (17:53)
--- NOTE | 2018-10-31 20:42 | CARD ---
APPROVED REPORT Date of service: 10/30/2018 EKG Measurement Heart [id number] <Conclusion> Atrial fibrillation Left axis deviation Possible Anterior infarct, age undetermined Abnormal ECG
[2018-11-01] MEDS: Acetylcysteine 20% Inhal Soln (4ml) INH SCH ×5 (03:21→19:56)
[2018-11-01] MEDS: Albuterol-Ipratrop 3 mg / 0.5 (3 ml) UD INH SCH ×5 (03:21→19:56)
[2018-11-01] MEDS: Sodium Chloride 0.9% 1,000 ML IV SCH ×2 (05:58→21:54)
[2018-11-01 06:18] LABS: BASO # 0.1 K/uL (0.0-0.2); BASO % 0.6 % (0.0-2.0); EOS # 0.5 K/uL (0.0-0.7); EOS % 5.6 % (0.0-4.0); HEMOGLOBIN 8.5 g/dL (11.0-16.0); LYMPH # 0.8 K/uL (1.0-4.3); LYMPH % 8.8 % (20.0-40.0); MEAN CELL VOLUME 90.7 fL (81.0-99.0); MEAN CORPUSCULAR HGB CONC 33.1 g/dL (33.0-37.0); MEAN PLATELET VOLUME 7.2 fL (7.2-11.7); MONO # 0.5 K/uL (0.0-0.8); MONO % 5.1 % (0.0-10.0); NEUT # 7.5 K/uL (1.8-7.0); NEUT % 79.9 % (50.0-75.0); PLATELET COUNT 540 K/uL (130-400); RBC 2.83 Mil/uL (3.80-5.20); RED CELL DISTRIBUTION WIDTH 19.9 % (11.5-14.5); WHITE BLOOD COUNT 9.4 K/uL (4.8-10.8)
[2018-11-01 06:49] LABS: ALB/GLOB RATIO 0.8 (1.0-2.1); ALBUMIN 2.2 g/dL (3.5-5.0); ALT/SGPT 13 U/L (9-52); AST/SGOT 25 U/L (14-36); BLOOD UREA NITROGEN 18 mg/dL (7-17); CALCIUM 7.4 mg/dl (8.6-10.4); GFR NON-AFRICAN AMERICAN > 60
--- NOTE | 2018-11-01 07:16 | CP.PCM.PN ---
<Cydney Herbert - Last Filed: 11/01/18 11:07> Subjective - Date & Time of Evaluation Date of Evaluation: 11/01/18 Time of Evaluation: 07:14 - Subjective Subjective: PGY-1 Cydney Herbert D.O. Medicine progress note for Dr. Leahy's service: Patient was seen and examined this morning. Patient is sleeping, no acute distress, able to be aroused. No significant clinical change- on vent, nonverbal, not following commands. Nursing reports no BM since 10/30, even after enema yesterday. However, she did pass gas yesterday. Objective - Vital Signs/Intake and Output Vital Signs (last 24 hours): Temp Pulse Resp BP Pulse Ox 97.8 F 88 17 111/55 L 100 11/01/18 04:00 11/01/18 04:00 11/01/18 04:00 11/01/18 04:00 11/01/18 04:00 Intake and Output: 11/01/18 11/01/18 06:59 18:59 Intake Total 2325 Output Total 750 Balance 1575 - Medications Medications: Current Medications Acetylcysteine (Acetylcysteine 20%) 4 ml INH RQ4 [facility] Last Admin: 11/01/18 03:21 Dose: 4 ml Albuterol/Ipratropium (Duoneb 3 Mg/0.5 Mg (3 Ml) Ud) 3 ml INH RQ4 [facility] Last Admin: 11/01/18 03:21 Dose: 3 ml Ascorbic Acid (Vitamin C 500 Mg Tab) 1,000 mg NG DAILY [facility] Last Admin: 10/31/18 10:13 Dose: 1,000 mg Aspirin (Aspirin Chewable) 81 mg GT DAILY [facility] Last Admin: 10/31/18 09:59 Dose: 81 mg Dextrose (Dextrose 50% Inj) 0 ml IVP .STAT PRN; Protocol PRN Reason: Hypoglycemia Protocol Dextrose (Glutose 15) 0 gm PO .ONCE PRN; Protocol PRN Reason: Hypoglycemia Protocol Glucagon (Glucagen Diagnostic Kit) 0 mg IM .STAT PRN; Protocol PRN Reason: Hypoglycemia Protocol Cefepime HCl 1 gm/ Dextrose 50 mls @ 100 mls/hr IVPB Q12H [facility]; Protocol Last Admin: 10/31/18 21:43 Dose: 100 mls/hr Sodium Chloride (Sodium Chloride 0.9%) 1,000 mls @ 75 mls/hr IV .[id number] [facility] Last Admin: 11/01/18 05:58 Dose: 75 mls/hr Methimazole (Tapazole) 10 mg PO Q8 [facility] Last Admin: 11/01/18 05:57 Dose: 10 mg Metoclopramide HCl (Reglan) 10 mg IVP Q12H [facility] Last Admin: 10/31/18 21:42 Dose: 10 mg Midodrine (Proamatine) 10 mg PO TID [facility] Last Admin: 10/31/18 17:54 Dose: 10 mg Modafinil (Provigil) 50 mg PO DAILY [facility] Last Admin: 10/31/18 09:59 Dose: 50 mg Multivitamins (Hexavitamin) 1 tab PEG DAILY [facility] Last Admin: 10/31/18 09:59 Dose: 1 tab Pantoprazole Sodium (Protonix Susp) 40 mg GT Q12H [facility] Last Admin: 10/31/18 21:42 Dose: 40 mg Polyethylene Glycol (Miralax) 17 gm PO BID [facility] Last Admin: 10/31/18 17:53 Dose: 17 gm Simethicone (Mylicon Chew Tab) 80 mg PO QID [facility] Last Admin: 10/31/18 21:44 Dose: 80 mg Tamsulosin HCl (Flomax) 0.4 mg PEG DAILY [facility] Last Admin: 10/31/18 10:02 Dose: 0.4 mg Vitamin A (Vitamin A & D Oint Ud Foilpak) 0.5 ea TOP BID [facility] Last Admin: 10/31/18 17:53 Dose: 0.5 ea - Labs Labs: 11/01/18 06:13 11/01/18 06:13 PT 13.3 SECONDS (9.7-12.2) H 10/23/18 06:05 INR 1.2 10/23/18 06:05 APTT 23 SECONDS (21-34) 10/02/18 06:10 - Additional Findings Additional findings: - Constitutional Appears: No Acute Distress, Chronically Ill - Head Exam Head Exam: ATRAUMATIC, NORMAL INSPECTION - Eye Exam Eye Exam: EOMI, PERRL - ENT Exam ENT Exam: Mucous Membranes Moist - Respiratory Exam Respiratory Exam: absent: Respiratory Distress Additional comments: B/l chest tubes - L output: 0 mL last 24 hrs - R output: 650 mL last 24 hrs (600, 50) Trach on vent- FiO2 40 - Cardiovascular Exam Cardiovascular Exam: RRR - GI/Abdominal Exam GI & Abdominal Exam: Distended- improved, Soft, Normal Bowel Sounds PEG - Exam Additional comments: Hernandes output 1600 mL last 24 hrs - Extremities Exam Additional comments: Diffuse atrophy/muscle wasting - Neurological Exam Neurological Exam: Alert, Altered, Awake. absent: Normal Gait, Oriented x3 - Psychiatric Exam Additional comments: Nonverbal - Skin Skin Exam: Dry, Intact, Normal Color, Warm Assessment and Plan - Assessment and Plan (Free Text) Assessment: This is a 52 yo female originally admitted to the ICU for septic shock 2/2 to PNA/UTI worsened by cardiac arrest and anoxic brain injury. Patient is s/p trach and PEG. Patient still unable to be weaned off vent. She has had multiple complications, including DVT and infections. s/p IVC filter 08/23. s/p chest tube placement 09/06-09/15. s/p LP 09/15. Patient has shown minimal improvement of cognitive function during the course of this hospitalization. Patient does not have any insurance and therefore cannot be placed in rehab/NH. Multiple conversations with regarding poor prognosis- he wishes to keep her full code. Plan: Altered mental status/Encephalopathy- suspect anoxic encephalopathy - Code Blue 07/10 and 07/20 - Off sedation - Modafinil 50 mg PO daily - CT head (08/28/18): no hemorrhage or midline shift - MRI brain (09/08/18): no definite mass effect or suspicious extra axial collection. No evidence of acute or subacute brain infarction at this time. Borderline pattern of hydrocephalus - LP 09/15/18: normal opening pressure - LDH 30, glucose 69, tot prot 67 - CSF Cx: no growth - Other CSF studies pending- called lab 11/01, they will contact [facility] for update - Neurology consulted (George/Ankit) Acute respiratory failure- s/p trach on vent, unable to wean - Tracheostomy 07/24/18, s/p bronchoscopy 08/23 - Patient had tolerated trach collars in early Aug 2018; however she has been on vent to trach since. Fi02: 40% - Bronchoscopy (08/23/18) by Dr. Lozada * Bronchial washings: Pseudomonas Aeruginosa * Fungal Cx: negative * Mycobacterial Cx: negative - Chest physiotherapy - Most recent CT chest (10/27/18): Large bilateral pleural effusions and associated consolidations. Trace pericardial effusion. Borderline cardiomegaly. Enlarged heterogeneous partially imaged thyroid gland. - Monitor CO2- Na bicarb PRN - Consider ABG if continues to decrease - Duonebs Q4H MAN[facility] - Mucomist Q4H [facility]O - Pulmonary consulted (Neville) Pleural effusions- s/p bilateral chest tubes - Multiple chest tubes and thoracenteses for effusions, most recent s/p bilateral chest tubes 10/27 - Pleural fluid from 10/13/18 - WBC 794, RBC 2083, tot cells 100, neutrophils 87% - Tot prot<3, LDH 145, glucose 146 - CT chest (10/27/18): Placment of 8.5 Serbian pigtail drainage catheter within right and left pleural space - Most recent CXR (10/31/18): Status post bilateral chest tube placements. Marked reduction of bilateral pleural effusions, commensurate re-expansion of both lungs. - IR consulted (Partha) - Pulmonology consulted (Neville) Distended abdomen- suspect constipation - AXR (10/28/18): Nonspecific bowel gas pattern with relative paucity of bowel gas. - Tube feedings resumed as residual < 200 - Phosphate enema x2 - Reglan 10 mg IV Q12H - Miralax PEG BID - Simethicone 80 mg PEG QID Thyroid disorder - Thyroid US (07/16/18): Heterogeneous thyroid echotexture. Numerous nodules as described above. Suggest percutaneous biopsy of the following suspicious nodules; 1.8 x 0.9 x 1.7 cm right lower pole nodule, 1.0 x 0.7 x 0.9 cm right upper pole lesion with intracystic vascular nodule, complex left upper pole nodule measuring 2.1 x 1.5 x 1.8 cm. - Note: Initial thyroid studies taken before amiodarone was given- this is NOT amiodarone induced - TSH <0.02 in 07/2018, 10/31/18 TSH 18.10 - Free T4 >3 in 07/2018, 10/31/2018 free T4 0.24 - Recheck TSH, free T4 on 11/08/18 - Methimazole to 10 mg PO Q8H- hold for 5 days (11/01-11/06/18) - Off Propranolol 5 mg PO TID due to hypotension - Endocrinology consulted (Irwin) Hypotension - Remains low, stable in 90s/50s-60s - Monitor albumin, administer PRN doses - Midodrine 10 mg PEG TID - NS @ 75 Atrial fibrillation RVR - EKG (10/29/18): Afib HR 130 - Lopressor 2.5 mg IVP PRN - Cardiology consulted (Nolan) Deconditioning - Patient needs aggressive continued PT/OT- PT signed off as patient does not follow directions - Nursing moves patient OOB to chair - Social work note (08/09/18): patient is undocumented, has not health insurance, discharge planning will be at home with Septic Shock 2/2 Pneumonia and Urinary Tract Infection (VRE and Pseudomonas)- urinary retention - Off pressors (previously on 3) - Leukocytosis resolved - Afebrile since 10/21/18 - Procal 0.66 on 10/21/18 - f/u repeat - Most recent blood cultures negative - Most recent urine cultures (10/21/18) +VRE/Pseudomonas. Suspect patient likely cultured VRE +/- Pseudomonas - Hernandes in place - Flomax 0.4 mg PEG daily - Cefepime 1 g Q12H- started 10/27 - ID consulted (Vinod) Anemia 2/2 to Chronic Diseases +/- Dysfunctional uterine bleeding, stable - Stool occult blood negative - Iron normal, TIBC low, Iron saturation normal, Ferritin normal - B12, folate normal - Vaginal US: thickened endometrium - Transfused pRBC: 1 unit 07/22/18, 2 units 08/13/18, 1 unit 08/17/18, 1 unit 08/23/18 - OBGYN consulted (Gilberto)- no hysterectomy Apical thrombus - Echo (07/07/18) before cardiac arrest: EF 40-45% - Echo (07/10/19) after cardiac arrest: EF 40%, LV large apical hypokinesis, large 30x20 mm soft tissue apical sessile mass suggestive of thrombus - Echo (08/17/19): LV clot, no significant change - Too high risk for HUBERT - Previously on heparin ggt, Eliquis- stopped due to anemia and vaginal bleeding - ASA 81 mg PEG daily LLE Deep vein thrombosis s/p IVC filter - Venous Doppler (07/18/18): Acute thrombosis of the left common femoral and femoral veins with severe reduction of the venous return - Resolved on repeat imaging - Previously on heparin ggt, Eliquis- stopped due to anemia and vaginal bleeding - s/p IVC filter on 08/23/18 - Vasc surgery consulted (Vicky) Type 2 diabetes mellitus, chronic - A1c: 7.8 - Hypoglycemia protocol - Accuchecks Q6H - ISS Q6H Vtach- Code blue x2 (07/10/18) - Previously on amiodarone ggt - Cardiology consulted (Nolan) Acute kidney failure, resolved - Require dialysis early in admission before code blues - Monitor BUN, Cr Shock liver, resolved - Hepatitis panel negative - HIV negative - Monitor LFTs Ppx: VTE: SCDs GI: Protonix 40mg GT Q12H * Lactobacillus 1 cap PO Q12H * MVI GT daily * Vitamin C 1,000 NG daily * Vitamin D 50,000 IU Q7D PEG feedings: [facility] goal rate 40 mL/hr Code status: full code- Palliative consulted Case was discussed with attending, Dr. Leahy. <Saira Leahy V - Last Filed: 11/01/18 18:35> Objective - Vital Signs/Intake and Output Vital Signs (last 24 hours): Temp Pulse Resp BP Pulse Ox 97.4 F L 89 18 107/54 L 100 11/01/18 16:00 11/01/18 16:00 11/01/18 16:00 11/01/18 16:00 11/01/18 16:00 Intake and Output: 11/01/18 11/01/18 06:59 18:59 Intake Total 2325 600 Output Total 750 Balance 1575 600 - Medications Medications: Current Medications Acetylcysteine (Acetylcysteine 20%) 4 ml INH RQ4 [facility] Last Admin: 11/01/18 16:00 Dose: Not Given Albuterol/Ipratropium (Duoneb 3 Mg/0.5 Mg (3 Ml) Ud) 3 ml INH RQ4 [facility] Last Admin: 11/01/18 16:00 Dose: Not Given Ascorbic Acid (Vitamin C 500 Mg Tab) 1,000 mg NG DAILY [facility] Last Admin: 11/01/18 09:18 Dose: 1,000 mg Aspirin (Aspirin Chewable) 81 mg GT DAILY [facility] Last Admin: 11/01/18 09:18 Dose: 81 mg Dextrose (Dextrose 50% Inj) 0 ml IVP .STAT PRN; Protocol PRN Reason: Hypoglycemia Protocol Dextrose (Glutose 15) 0 gm PO .ONCE PRN; Protocol PRN Reason: Hypoglycemia Protocol Glucagon (Glucagen Diagnostic Kit) 0 mg IM .STAT PRN; Protocol PRN Reason: Hypoglycemia Protocol Cefepime HCl 1 gm/ Dextrose 50 mls @ 100 mls/hr IVPB Q12H [facility]; Protocol Last Admin: 11/01/18 08:41 Dose: 100 mls/hr Sodium Chloride (Sodium Chloride 0.9%) 1,000 mls @ 75 mls/hr IV .[id number] [facility] Last Admin: 11/01/18 05:58 Dose: 75 mls/hr Lactobacillus Acidophilus (Bacid Acidophilus) 1 cap PO BID [facility] Last Admin: 11/01/18 09:23 Dose: 1 cap Methimazole (Tapazole) 10 mg PO Q8 [facility] Last Admin: 11/01/18 05:57 Dose: 10 mg Metoclopramide HCl (Reglan) 10 mg IVP Q12H [facility] Last Admin: 11/01/18 08:41 Dose: 10 mg Midodrine (Proamatine) 10 mg PO TID [facility] Last Admin: 11/01/18 17:42 Dose: 10 mg Modafinil (Provigil) 50 mg PO DAILY [facility] Last Admin: 11/01/18 09:21 Dose: 50 mg Multivitamins (Hexavitamin) 1 tab PEG DAILY [facility] Last Admin: 11/01/18 09:18 Dose: 1 tab Pantoprazole Sodium (Protonix Susp) 40 mg GT Q12H [facility] Last Admin: 11/01/18 08:41 Dose: 40 mg Polyethylene Glycol (Miralax) 17 gm PO BID [facility] Last Admin: 11/01/18 17:42 Dose: 17 gm Simethicone (Mylicon Chew Tab) 80 mg PO QID [facility] Last Admin: 11/01/18 17:42 Dose: 80 mg Tamsulosin HCl (Flomax) 0.4 mg PEG DAILY [facility] Last Admin: 11/01/18 09:19 Dose: 0.4 mg Vitamin A (Vitamin A & D Oint Ud Foilpak) 0.5 ea TOP DAILY [facility] Last Admin: 11/01/18 10:14 Dose: Not Given - Labs Labs: 11/01/18 06:13 11/01/18 06:13 PT 13.3 SECONDS (9.7-12.2) H 10/23/18 06:05 INR 1.2 10/23/18 06:05 APTT 23 SECONDS (21-34) 10/02/18 06:10 Assessment and Plan (1) Septic shock Status: Acute (2) Acute respiratory failure Status: Acute (3) Urinary tract infection Status: Acute (4) Acute renal failure Status: Acute (5) Aspiration pneumonia Status: Acute (6) Diabetes mellitus Status: Chronic (7) Ventricular arrhythmia Status: Acute (8) Hyperthyroidism Status: Acute (9) Anemia Status: Acute (10) Prophylactic measure Status: Acute Attending/Attestation - Attestation I have personally seen and examined this patient.: Yes I have fully participated in the care of the patient.: Yes I have reviewed all pertinent clinical information, including history, physical exam and plan: Yes Notes (Text): Patient seen, examined, and case discussed with day-time resident. This is a 53-year-old female with a prolonged hospitalization for treatment for septic shock complicated by both pneumonia and urinary tract infections, anoxic encephalopathy likely secondary to 2 cardiac arrest during hospitalization, hyperthyroidism which has been controlled on methimazole, shock liver which is now recovered, history of apical thrombus which is currently being treated with aspirin and is not on anticoagulation secondary to worsening heavy vaginal bleeding which required multiple blood transfusions during hospitalization, history of left lower extremity DVT which falling 1 month of anticoagulation has radiographically disappeared on repeat ultrasound and has now an IVC filter, as well as diabetes, vitamin D deficiency. Patient recently had a chest x-ray completed on Oct 13 wherein she went through a thoracentesis for pleural effusion. We have repeated chest xray recently.I have discussed with Dr. Lozada, patient will likely need pigtail catheter given the reaccumulation of fluid. CT chest on October 23, 2018 noted large bilateral pleural effusions with associated consolidations. Trace pericardial effusion. Borderline cardiomegaly. Enlarged heterogeneous partially imaged thyroid gland. Tracheostomy tube. Limited visualization of the noncontrast upper abdominal IVC filter. Bilateral renal cyst. Small perihepatic and perisplenic ascites. Pancreatic atrophy. Possible tiny gallstone. Indeterminate 13 mm left upper lobe nodule indeterminate. Patient under underwent chest tube placement with interventional radiology on October [address] placement of 8.5 Serbian pigtail drain catheter within the right and left pleural space. Trach aspirate noted for Pseudomonas. Patient was placed on Maxipime per infectious disease. Pleural fluid shows no growth. Will need to monitor fluid output. Patient is noted to be incontinent of the urine has been straight cath when she does retain. Patient was on [address] way Hernandes since 10/05/17 evening with CBI to clean out urine which she is off. Patient is off antibiotic since 10/05/17. Blood cultures 10/14/18 which show no growth for 5 days X2. She had a fever on 10/21/18 which was 100.4; has remained afebrile since. Follow-up blood culture (10/21/18) werre negative. Blood culture from 10/28/18 so far no growth. Also note patient did underwent a lumbar puncture on September 15 HSV-2 IgM antibody, VDRL, and the West Nile are still pending. Physical therapy had signed off on September 24 because patient is not a candidate because she cannot follow directions. Patient would be an ideal candidate for LTAC however she does not have insurance, her is not from this [place] which limits her ability for services. The other thing is patient still remains trach to vent as well. Also to note patient does have sequential compressive stocking since the follow- up venous Doppler which did indicate that the clot had cleared.Patient does have noted muscle wasting. Wound care re-evaluated the patient on 10/05/18 for skin break down over the flexor surfaces over the knee. New recommendations were placed. Patient has dressings over the sites. Patient's midodrine increased to 10mg PO TID to increase blood pressure recently. Evening, 10/30/18 patient had an episode of atrial fib RVR which required Lopressor given by nighttime resident. We repeated thyroid studies with elevated TSH, Free T4 normal. We will f/u with endocrinology regarding dose adjustment of methiazole. Endocrinology noted to hold the methizole for 5 days (start 11/01/18 until 11/05/18) and then resume 10mg POq*H, then recheck thyroid on Tuesday, Nov 08 Patient given dose of Albumin today to help improve blood pressure. Patient ordered for phosphate enema 10/31/18. patient restarted on tube feedings 10/30/18. patient had passed gas overnight but did not have a blood movement. patient placed on miralax and reglan to help promote bowel movement. Chest xray was repeated 10/31/18 is improving while has chest tubes. Patient noted to have poor prognosis though she has survived many things during her hospitalization. Her who remains in high spirits hopes that she will recover and has been persistently at bedside every single day since being hospitalized in July.
[2018-11-01] MEDS: Pantoprazole 40 mg Susp UD GT SCH ×2 (08:41→21:52)
[2018-11-01 08:44] LABS: EOSINOPHIL 3 % (0-4); LYMPHOCYTE 6 % (20-40); MONOCYTE 2 % (0-10); NEUTROPHIL 89 % (50-75); TOTAL CELLS COUNTED 100
[2018-11-01 08:46] LABS: PLATELET ESTIMATE SLIGHTLY INCREASED (NORMAL)
[2018-11-01 08:47] LABS: ANISOCYTOSIS SLIGHT
[2018-11-01 08:48] LABS: HYPOCHROMIC SLIGHT; OVALOCYTES SLIGHT; POLYCHROMIC SLIGHT
[2018-11-01] MEDS: POLYETHYLENE GLYCOL 3350 17 GM/Dose PACKET PO SCH ×2 (09:18→17:42)
[2018-11-01] MEDS: Multiple Vitamins Tab PEG SCH (09:18)
[2018-11-01] MEDS: Simethicone 80 mg Chewtab PO SCH ×4 (09:18→21:54)
[2018-11-01] MEDS: Modafinil 50 MG TAB PO SCH (09:21)
[2018-11-01] MEDS: Lactobacillus Acidophilus 500 MU Cap PO SCH ×2 (09:23→18:00)
[2018-11-01] MEDS: Vitamins A & D Oint UD Foilpak TOP SCH ×2 (09:24→10:14)
[2018-11-01] MEDS ORDERED: Albumin Human 5% (12.5 gm/250 ml) IV ONE (09:45)
[2018-11-01] MEDS ORDERED: Sodium Bicarbonate (8.4%) 50 Meq Syringe IVP ONE (09:45)
[2018-11-01] MEDS ORDERED: Sodium Bicarbonate (8.4%) 50 mEq Vial IVP ONE (10:00)
--- NOTE | 2018-11-01 15:47 | CP.PCM.PN ---
Subjective - Date & Time of Evaluation Date of Evaluation: 11/02/18 Time of Evaluation: 09:00 - Subjective Subjective: seen on rounds no distress Objective - Vital Signs/Intake and Output Vital Signs (last 24 hours): Temp Pulse Resp BP Pulse Ox 97.1 F L 90 16 113/54 L 100 11/01/18 12:00 11/01/18 12:00 11/01/18 12:00 11/01/18 12:00 11/01/18 12:00 Intake and Output: 11/01/18 11/01/18 06:59 18:59 Intake Total 2325 600 Output Total 750 Balance 1575 600 - Medications Medications: Current Medications Acetylcysteine (Acetylcysteine 20%) 4 ml INH RQ4 [facility] Last Admin: 11/01/18 11:00 Dose: 4 ml Albuterol/Ipratropium (Duoneb 3 Mg/0.5 Mg (3 Ml) Ud) 3 ml INH RQ4 [facility] Last Admin: 11/01/18 11:00 Dose: 3 ml Ascorbic Acid (Vitamin C 500 Mg Tab) 1,000 mg NG DAILY [facility] Last Admin: 11/01/18 09:18 Dose: 1,000 mg Aspirin (Aspirin Chewable) 81 mg GT DAILY [facility] Last Admin: 11/01/18 09:18 Dose: 81 mg Dextrose (Dextrose 50% Inj) 0 ml IVP .STAT PRN; Protocol PRN Reason: Hypoglycemia Protocol Dextrose (Glutose 15) 0 gm PO .ONCE PRN; Protocol PRN Reason: Hypoglycemia Protocol Glucagon (Glucagen Diagnostic Kit) 0 mg IM .STAT PRN; Protocol PRN Reason: Hypoglycemia Protocol Cefepime HCl 1 gm/ Dextrose 50 mls @ 100 mls/hr IVPB Q12H [facility]; Protocol Last Admin: 11/01/18 08:41 Dose: 100 mls/hr Sodium Chloride (Sodium Chloride 0.9%) 1,000 mls @ 75 mls/hr IV .[id number] [facility] Last Admin: 11/01/18 05:58 Dose: 75 mls/hr Lactobacillus Acidophilus (Bacid Acidophilus) 1 cap PO BID [facility] Last Admin: 11/01/18 09:23 Dose: 1 cap Methimazole (Tapazole) 10 mg PO Q8 [facility] Last Admin: 11/01/18 05:57 Dose: 10 mg Metoclopramide HCl (Reglan) 10 mg IVP Q12H [facility] Last Admin: 11/01/18 08:41 Dose: 10 mg Midodrine (Proamatine) 10 mg PO TID [facility] Last Admin: 11/01/18 14:30 Dose: 10 mg Modafinil (Provigil) 50 mg PO DAILY [facility] Last Admin: 11/01/18 09:21 Dose: 50 mg Multivitamins (Hexavitamin) 1 tab PEG DAILY [facility] Last Admin: 11/01/18 09:18 Dose: 1 tab Pantoprazole Sodium (Protonix Susp) 40 mg GT Q12H [facility] Last Admin: 11/01/18 08:41 Dose: 40 mg Polyethylene Glycol (Miralax) 17 gm PO BID [facility] Last Admin: 11/01/18 09:18 Dose: 17 gm Simethicone (Mylicon Chew Tab) 80 mg PO QID [facility] Last Admin: 11/01/18 14:29 Dose: 80 mg Tamsulosin HCl (Flomax) 0.4 mg PEG DAILY [facility] Last Admin: 11/01/18 09:19 Dose: 0.4 mg Vitamin A (Vitamin A & D Oint Ud Foilpak) 0.5 ea TOP DAILY [facility] Last Admin: 11/01/18 10:14 Dose: Not Given - Labs Labs: 11/01/18 06:13 11/01/18 06:13 PT 13.3 SECONDS (9.7-12.2) H 10/23/18 06:05 INR 1.2 10/23/18 06:05 APTT 23 SECONDS (21-34) 10/02/18 06:10 - Constitutional Appears: Non-toxic, Cachectic, Chronically Ill - Head Exam Head Exam: NORMOCEPHALIC - Eye Exam Eye Exam: absent: Scleral icterus - ENT Exam ENT Exam: Mucous Membranes Dry - Neck Exam Neck Exam: absent: Lymphadenopathy - Respiratory Exam Respiratory Exam: Decreased Breath Sounds - Cardiovascular Exam Cardiovascular Exam: REGULAR RHYTHM - GI/Abdominal Exam GI & Abdominal Exam: Distended, Soft - Rectal Exam Rectal Exam: Deferred - Exam Exam: NORMAL INSPECTION - Extremities Exam Extremities Exam: absent: Pedal Edema - Back Exam Back Exam: absent: CVA tenderness (L), CVA tenderness (R) - Neurological Exam Neurological Exam: Alert, Awake Assessment and Plan (1) NEHA (acute kidney injury) Status: Acute (2) Acute renal failure Status: Acute (3) Acute respiratory failure Status: Acute (4) Aspiration pneumonia Status: Acute (5) Septic shock Status: Acute (6) Urinary tract infection Status: Acute (7) Diabetes mellitus Status: Chronic (8) Anoxic brain damage Status: Acute - Assessment and Plan (Free Text) Assessment: cont iv rx as ordered
[2018-11-02] MEDS: Albuterol-Ipratrop 3 mg / 0.5 (3 ml) UD INH SCH ×7 (00:08→23:59)
[2018-11-02] MEDS: Acetylcysteine 20% Inhal Soln (4ml) INH SCH ×5 (00:08→15:58)
[2018-11-02] MEDS: Sodium Chloride 0.9% 1,000 ML IV SCH ×2 (05:44→11:14)
--- NOTE | 2018-11-02 06:31 | CP.PCM.PN ---
<Cydney Herbert - Last Filed: 11/02/18 16:04> Subjective - Date & Time of Evaluation Date of Evaluation: 11/02/18 Time of Evaluation: 06:30 - Subjective Subjective: PGY-1 Cydney Herbert D.O. Medicine progress note for Dr. Leahy's service: Patient was seen and examined this morning. She is in a chair at bedside. Nursing reports no BM after enema this morning. Patient is not in acute distress. No significant clinical change- nonverbal, not following commands, responsive to pain, opens eye spontaneously. Objective - Vital Signs/Intake and Output Vital Signs (last 24 hours): Temp Pulse Resp BP Pulse Ox 97.8 F 86 16 109/51 L 100 11/02/18 04:00 11/02/18 04:00 11/02/18 04:00 11/02/18 04:00 11/02/18 04:00 Intake and Output: 11/01/18 11/02/18 18:59 06:59 Intake Total 2360 1175 Output Total 525 500 Balance 1835 675 - Medications Medications: Current Medications Acetylcysteine (Acetylcysteine 20%) 4 ml INH RQ4 [facility] Last Admin: 11/02/18 03:27 Dose: 4 ml Albuterol/Ipratropium (Duoneb 3 Mg/0.5 Mg (3 Ml) Ud) 3 ml INH RQ4 [facility] Last Admin: 11/02/18 03:27 Dose: 3 ml Ascorbic Acid (Vitamin C 500 Mg Tab) 1,000 mg NG DAILY [facility] Last Admin: 11/01/18 09:18 Dose: 1,000 mg Aspirin (Aspirin Chewable) 81 mg GT DAILY [facility] Last Admin: 11/01/18 09:18 Dose: 81 mg Dextrose (Dextrose 50% Inj) 0 ml IVP .STAT PRN; Protocol PRN Reason: Hypoglycemia Protocol Dextrose (Glutose 15) 0 gm PO .ONCE PRN; Protocol PRN Reason: Hypoglycemia Protocol Glucagon (Glucagen Diagnostic Kit) 0 mg IM .STAT PRN; Protocol PRN Reason: Hypoglycemia Protocol Cefepime HCl 1 gm/ Dextrose 50 mls @ 100 mls/hr IVPB Q12H [facility]; Protocol Last Admin: 11/01/18 21:52 Dose: 100 mls/hr Sodium Chloride (Sodium Chloride 0.9%) 1,000 mls @ 75 mls/hr IV .[id number] [facility] Last Admin: 11/02/18 05:44 Dose: Not Given Lactobacillus Acidophilus (Bacid Acidophilus) 1 cap PO BID [facility] Last Admin: 11/01/18 09:23 Dose: 1 cap Methimazole (Tapazole) 10 mg PO Q8 [facility] Last Admin: 11/01/18 05:57 Dose: 10 mg Metoclopramide HCl (Reglan) 10 mg IVP Q12H [facility] Last Admin: 11/01/18 21:53 Dose: 10 mg Midodrine (Proamatine) 10 mg PO TID [facility] Last Admin: 11/01/18 17:42 Dose: 10 mg Modafinil (Provigil) 50 mg PO DAILY [facility] Last Admin: 11/01/18 09:21 Dose: 50 mg Multivitamins (Hexavitamin) 1 tab PEG DAILY [facility] Last Admin: 11/01/18 09:18 Dose: 1 tab Pantoprazole Sodium (Protonix Susp) 40 mg GT Q12H [facility] Last Admin: 11/01/18 21:52 Dose: 40 mg Polyethylene Glycol (Miralax) 17 gm PO BID [facility] Last Admin: 11/01/18 17:42 Dose: 17 gm Simethicone (Mylicon Chew Tab) 80 mg PO QID [facility] Last Admin: 11/01/18 21:54 Dose: 80 mg Tamsulosin HCl (Flomax) 0.4 mg PEG DAILY [facility] Last Admin: 11/01/18 09:19 Dose: 0.4 mg Vitamin A (Vitamin A & D Oint Ud Foilpak) 0.5 ea TOP DAILY [facility] Last Admin: 11/01/18 10:14 Dose: Not Given - Labs Labs: 11/01/18 06:13 11/01/18 06:13 PT 13.3 SECONDS (9.7-12.2) H 10/23/18 06:05 INR 1.2 10/23/18 06:05 APTT 23 SECONDS (21-34) 10/02/18 06:10 - Additional Findings Additional findings: - Constitutional Appears: No Acute Distress, Chronically Ill - Head Exam Head Exam: ATRAUMATIC, NORMAL INSPECTION - Eye Exam Eye Exam: EOMI, PERRL - ENT Exam ENT Exam: Mucous Membranes Moist - Respiratory Exam Respiratory Exam: absent: Respiratory Distress Additional comments: B/l chest tubes - L output: 0 mL last 24 hrs - R output: 25 mL last 24 hrs Trach on vent- FiO2 40 - Cardiovascular Exam Cardiovascular Exam: RRR - GI/Abdominal Exam GI & Abdominal Exam: Distended, Soft, Normal Bowel Sounds PEG - Exam Additional comments: Hernandes output 1000 mL last 24 hrs - Extremities Exam Additional comments: Diffuse atrophy/muscle wasting - Neurological Exam Neurological Exam: Alert, Altered, Awake. absent: Normal Gait, Oriented x3 - Psychiatric Exam Additional comments: Nonverbal - Skin Skin Exam: Dry, Intact, Normal Color, Warm Assessment and Plan - Assessment and Plan (Free Text) Assessment: This is a 52 yo female originally admitted to the ICU for septic shock 2/2 to PNA/UTI worsened by cardiac arrest and anoxic brain injury. Patient foudn to have apical thrombus in heart. Patient is s/p trach and PEG. Patient still unable to be weaned off vent. She has had multiple complications, including DVT and infections (PNA, UTI). s/p IVC filter 08/23. s/p multiple chest tube placements Sep 19-Oct 21. s/p LP 09/15. Patient has shown minimal improvement of cognitive function during the course of this hospitalization. Patient does not have any insurance and therefore cannot be placed in rehab/NH. Multiple conversations with regarding poor prognosis- he wishes to keep her full code. Palliative and pastoral care have been on board. Plan: Altered mental status/Encephalopathy- suspect anoxic encephalopathy - Code Blue 07/10 and 07/20 - Off sedation - Modafinil 50 mg PO daily - CT head (08/28/18): no hemorrhage or midline shift - MRI brain (09/08/18): no definite mass effect or suspicious extra axial collection. No evidence of acute or subacute brain infarction at this time. Borderline pattern of hydrocephalus - LP 09/15/18: normal opening pressure - LDH 30, glucose 69, tot prot 67 - CSF Cx: no growth - Other CSF studies pending- called lab 11/01, they will contact [facility] for update - Neurology consulted (George/Ankit) Acute respiratory failure- s/p trach on vent, unable to wean - Tracheostomy 07/24/18, s/p bronchoscopy 08/23 - Patient had tolerated trach collars in early Aug 2018; however she has been on vent to trach since. Fi02: 40% - Bronchoscopy (08/23/18) by Dr. Lozada * Bronchial washings: Pseudomonas Aeruginosa * Fungal Cx: negative * Mycobacterial Cx: negative - Chest physiotherapy - Most recent CT chest (10/27/18): Large bilateral pleural effusions and associated consolidations. Trace pericardial effusion. Borderline cardiomegaly. Enlarged heterogeneous partially imaged thyroid gland. - Monitor CO2- Na bicarb PRN - ABG pending - Duonebs Q4H [facility] - Discontinue Mucomist as per resp therapy - Pulmonary consulted (Neville) Distended abdomen, worsening- possible constipation, several enemas given, last BM 10/31 (small) - AXR (10/28/18): Nonspecific bowel gas pattern with relative paucity of bowel gas. - Repeat AXR pending - Hold tube feeds 11/02 - Reglan 10 mg IV Q12H - Miralax PEG BID - Simethicone 80 mg PEG QID - Phosphate enema x3 - Phos enema 11/02 - Dulcolax IA 11/02 Pleural effusions- s/p bilateral chest tubes - Multiple chest tubes and thoracenteses for effusions, most recent s/p bilateral chest tubes 10/27 - Pleural fluid from 10/13/18 - WBC 794, RBC 2083, tot cells 100, neutrophils 87% - Tot prot<3, LDH 145, glucose 146 - CT chest (10/27/18): Placment of 8.5 [place] pigtail drainage catheter within right and left pleural space - Most recent CXR (10/31/18): Status post bilateral chest tube placements. Marked reduction of bilateral pleural effusions, commensurate re-expansion of both lungs. - Repeat CXR pending - Discontinue IVF - IR consulted (Partha) - Pulmonology consulted (Neville) Thyroid disorder - Thyroid US (07/16/18): Heterogeneous thyroid echotexture. Numerous nodules as described above. Suggest percutaneous biopsy of the following suspicious nodules; 1.8 x 0.9 x 1.7 cm right lower pole nodule, 1.0 x 0.7 x 0.9 cm right upper pole lesion with intracystic vascular nodule, complex left upper pole nodule measuring 2.1 x 1.5 x 1.8 cm. - Note: Initial thyroid studies taken before amiodarone was given- this is NOT amiodarone induced - TSH <0.02 in 07/2018, 10/31/18 TSH 18.10 - Free T4 >3 in 07/2018, 10/31/2018 free T4 0.24 - Recheck TSH, free T4 on 11/08/18 - Methimazole to 10 mg PO Q8H- hold for 5 days (11/01-11/06/18) - Off Propranolol 5 mg PO TID due to hypotension - Endocrinology consulted (Irwin) Hypotension, improved, stable - Remains stable in 100s-110s/50s-60s - Monitor albumin, administer PRN doses - Midodrine 10 mg PEG TID - Discontinue IVF Atrial fibrillation RVR - EKG (10/29/18): Afib HR 130 - Lopressor 2.5 mg IVP PRN - Cardiology consulted (Nolan) Deconditioning - Patient needs aggressive continued PT/OT- PT signed off as patient does not follow directions - Nursing and move patient OOB to chair - Social work note (08/09/18): patient is undocumented, has not health insurance, discharge planning will be at home with Septic Shock 2/2 Pneumonia and Urinary Tract Infection (VRE and Pseudomonas)- urinary retention - Off pressors (previously on 3) - Leukocytosis resolved - Afebrile since 10/21/18 - Procal 0.66 on 10/21/18, 1.49 on 11/01/18 - Repeat CXR pending - Most recent blood cultures negative - Most recent urine cultures (10/21/18) +VRE/Pseudomonas, suspect patient likely colonized - Hernandes in place - Flomax 0.4 mg PEG daily - Cefepime 1 g Q12H- started 10/27 - ID consulted (Vinod) Anemia 2/2 to Chronic Diseases +/- Dysfunctional uterine bleeding, stable - Stool occult blood negative - Iron normal, TIBC low, Iron saturation normal, Ferritin normal - B12, folate normal - Vaginal US: thickened endometrium - Transfused pRBC: 1 unit 07/22/18, 2 units 08/13/18, 1 unit 08/17/18, 1 unit 08/23/18 - OBGYN consulted (Gilberto)- no hysterectomy Apical thrombus - Echo (07/07/18) before cardiac arrest: EF 40-45% - Echo (07/10/19) after cardiac arrest: EF 40%, LV large apical hypokinesis, large 30x20 mm soft tissue apical sessile mass suggestive of thrombus - Echo (08/17/19): LV clot, no significant change - Too high risk for HUBERT - Previously on heparin ggt, Eliquis- stopped due to anemia and vaginal bleeding - ASA 81 mg PEG daily LLE Deep vein thrombosis s/p IVC filter - Venous Doppler (07/18/18): Acute thrombosis of the left common femoral and femoral veins with severe reduction of the venous return - Resolved on repeat imaging - Previously on heparin ggt, Eliquis- stopped due to anemia and vaginal bleeding - s/p IVC filter on 08/23/18 - Vasc surgery consulted (Vicky) Type 2 diabetes mellitus, chronic - A1c: 7.8 - Hypoglycemia protocol - Accuchecks Q6H - ISS Q6H Vtach- Code blue x2 (07/10/18) - Previously on amiodarone ggt - Cardiology consulted (Nolan) Acute kidney failure, resolved - Required dialysis early in admission before code blues - Monitor BUN, Cr Shock liver, resolved - Hepatitis panel negative - HIV negative - Monitor LFTs Ppx: VTE: SCDs GI: Protonix 40mg PEG Q12H * Lactobacillus 1 cap PEG Q12H * MVI GT daily * Vitamin C 1,000 PEG daily PEG feedings: Pulmocare goal rate 40 mL/hr Code status: full code- Palliative consulted Case was discussed with attending, Dr. Leahy. <Saira Leahy V - Last Filed: 11/03/18 21:15> Objective - Vital Signs/Intake and Output Vital Signs (last 24 hours): Temp Pulse Resp BP Pulse Ox 97.6 F 70 16 95/49 L 100 11/03/18 16:00 11/03/18 16:00 11/03/18 16:00 11/03/18 16:00 11/03/18 16:00 Intake and Output: 11/03/18 11/04/18 18:59 06:59 Intake Total 450 Output Total 350 Balance 100 - Medications Medications: Current Medications Albuterol/Ipratropium (Duoneb 3 Mg/0.5 Mg (3 Ml) Ud) 3 ml INH RQ4 [facility] Last Admin: 11/03/18 19:41 Dose: 3 ml Ascorbic Acid (Vitamin C 500 Mg Tab) 1,000 mg NG DAILY [facility] Last Admin: 11/03/18 09:07 Dose: 1,000 mg Aspirin (Aspirin Chewable) 81 mg GT DAILY [facility] Last Admin: 11/03/18 09:07 Dose: 81 mg Bisacodyl (Dulcolax) 10 mg IA ONCE ONE Stop: 11/03/18 21:08 Dextrose (Dextrose 50% Inj) 0 ml IVP .STAT PRN; Protocol PRN Reason: Hypoglycemia Protocol Dextrose (Glutose 15) 0 gm PO .ONCE PRN; Protocol PRN Reason: Hypoglycemia Protocol Glucagon (Glucagen Diagnostic Kit) 0 mg IM .STAT PRN; Protocol PRN Reason: Hypoglycemia Protocol Cefepime HCl 1 gm/ Dextrose 50 mls @ 100 mls/hr IVPB Q12H [facility]; Protocol Last Admin: 11/03/18 09:06 Dose: 100 mls/hr Dextrose/Sodium Chloride (Dextrose 5%/0.9% Ns 1000 Ml) 1,000 mls @ 50 mls/hr IV .Q20H [facility] Last Admin: 11/03/18 12:51 Dose: 50 mls/hr Lactobacillus Acidophilus (Bacid Acidophilus) 1 cap PO BID [facility] Last Admin: 11/03/18 17:46 Dose: 1 cap Methimazole (Tapazole) 10 mg PO Q8 [facility] Last Admin: 11/01/18 05:57 Dose: 10 mg Metoclopramide HCl (Reglan) 10 mg IVP Q6H [facility] Last Admin: 11/03/18 15:16 Dose: 10 mg Midodrine (Proamatine) 10 mg PO TID [facility] Last Admin: 11/03/18 17:46 Dose: 10 mg Modafinil (Provigil) 50 mg PO DAILY [facility] Last Admin: 11/03/18 09:07 Dose: 50 mg Multivitamins (Hexavitamin) 1 tab PEG DAILY [facility] Last Admin: 11/03/18 09:07 Dose: 1 tab Pantoprazole Sodium (Protonix Susp) 40 mg GT Q12H [facility] Last Admin: 11/03/18 09:06 Dose: 40 mg Polyethylene Glycol (Miralax) 17 gm PO BID [facility] Last Admin: 11/03/18 17:46 Dose: 17 gm Simethicone (Mylicon Chew Tab) 80 mg PO QID [facility] Last Admin: 11/03/18 17:46 Dose: 80 mg Sodium Bicarbonate (Sodium Bicarbonate Tab) 650 mg PO BID [facility] Last Admin: 11/03/18 17:46 Dose: 650 mg Tamsulosin HCl (Flomax) 0.4 mg PEG DAILY [facility] Last Admin: 11/03/18 09:07 Dose: 0.4 mg Vitamin A (Vitamin A & D Oint Ud Foilpak) 0.5 ea TOP DAILY [facility] Last Admin: 11/03/18 09:08 Dose: 0.5 ea - Labs Labs: 11/03/18 06:26 11/03/18 06:24 PT 13.3 SECONDS (9.7-12.2) H 10/23/18 06:05 INR 1.2 10/23/18 06:05 APTT 23 SECONDS (21-34) 10/02/18 06:10 Assessment and Plan (1) Septic shock Status: Acute (2) Acute respiratory failure Status: Acute (3) Urinary tract infection Status: Acute (4) Acute renal failure Status: Acute (5) Aspiration pneumonia Status: Acute (6) Diabetes mellitus Status: Chronic (7) Ventricular arrhythmia Status: Acute (8) Hyperthyroidism Status: Acute (9) Anemia Status: Acute (10) Prophylactic measure Status: Acute Attending/Attestation - Attestation I have personally seen and examined this patient.: Yes I have fully participated in the care of the patient.: Yes I have reviewed all pertinent clinical information, including history, physical exam and plan: Yes Notes (Text): This is late computer entry 11/02/18 Patient seen, examined, and case discussed with day-time resident. This is a 53-year-old female with a prolonged hospitalization for treatment for septic shock complicated by both pneumonia and urinary tract infections, anoxic encephalopathy likely secondary to 2 cardiac arrest during hospitalization, hyperthyroidism which has been controlled on methimazole, shock liver which is now recovered, history of apical thrombus which is currently being treated with aspirin and is not on anticoagulation secondary to worsening heavy vaginal bleeding which required multiple blood transfusions during hospitalization, history of left lower extremity DVT which falling 1 month of anticoagulation has radiographically disappeared on repeat ultrasound and has now an IVC filter, as well as diabetes, vitamin D deficiency. Patient recently had a chest x-ray completed on Oct 13 wherein she went through a thoracentesis for pleural effusion. We have repeated chest xray recently.I have discussed with Dr. Lozada, patient will likely need pigtail catheter given the reaccumulation of fluid. CT chest on October 23, 2018 noted large bilateral pleural effusions with as sociated consolidations. Trace pericardial effusion. Borderline cardiomegaly. Enlarged heterogeneous partially imaged thyroid gland. Tracheostomy tube. Limited visualization of the noncontrast upper abdominal IVC filter. Bilateral renal cyst. Small perihepatic and perisplenic ascites. Pancreatic atrophy. Possible tiny gallstone. Indeterminate 13 mm left upper lobe nodule indeterminate. Patient under underwent chest tube placement with interventional radiology on October [address] placement of 8.5 [place] pigtail drain catheter within the right and left pleural space. Trach aspirate noted for Pseudomonas. Patient was placed on Maxipime per infectious disease. Pleu ral fluid shows no growth. Will need to monitor fluid output. Chest xray repeated today in light of recent chest tube placements. Patient is noted to be incontinent of the urine has been straight cath when she does retain. Patient was on [address] way Hernandes since 10/05/17 evening with CBI to clean out urine which she is off. Patient is off antibiotic since 10/05/17. Blood cultures 10/14/18 which show no growth for 5 days X2. She had a fever on 10/21/18 which was 100.4; has remained afebrile since. Follow-up blood culture (10/21/18) werre negative. Blood culture from 10/28/18 so far no growth. Procalcitonin is high: 1.49 in light of Pseudomonas pneumonia. Patient has been on Maxipime 1gm IV Q12H since 10/27/18. Continue to monitor for fever and white count. Also note patient did underwent a lumbar puncture on September 15 HSV-2 IgM antibody, VDRL, and the West Nile are still pending. Physical therapy had signed off on September 24 because patient is not a candidate because she cannot follow directions. Patient would be an ideal candidate for LTAC however she does not have insurance, her is [place] from this [place] which limits her ability for services. The other thing is patient still remains trach to vent as well. Also to note patient does have sequential compressive stocking since the follow- up venous Doppler which did indicate that the clot had cleared.Patient does have noted muscle wasting. Wound care re-evaluated the patient on 10/05/18 for skin break down over the flexor surfaces over the knee. New recommendations were placed. Patient has dressings over the sites. Patient's midodrine increased to 10mg PO TID to increase blood pressure. Evening, 10/30/18 patient had an episode of atrial fib RVR which required Lopressor given by nighttime resident. We repeated thyroid studies with elevated TSH, Free T4 normal. We will f/u with endocrinology regarding dose adjustment of methiazole. Endocrinology noted to hold the methizole for 5 days (start 11/01/18 until 11/05/18) and then resume 10mg POq8H, then recheck thyroid on Tuesday, Nov 08 Patient given dose of Albumin 11/01/18 to help improve blood pressure. Patient ordered for phosphate enema 10/31/18. patient restarted on tube feedings 10/30/18. patient had passed gas overnight but did not have a blood movement. patient placed on miralax and reglan to help promote bowel movement. Patient had a small bowel movement on 10/31/18 and is passing gas. Patient had abdominal xray to repeat. ABG is essentially normal. Patient bicarbonate is mildy low given 1 amp of sodium bicarbonate. Held feeds on 11/02/18. Started on gentle Iv hydration evening of 11/02/18. Chest xray was repeated 10/31/18 which shows lungs are improving while has chest tubes. Patient noted to have poor prognosis though she has survived many things during her hospitalization. Her who remains in high spirits hopes that she will recover and has been persistently at bedside every single day since being hospitalized in July.
[2018-11-02 06:32] LABS: BLOOD UREA NITROGEN 17 mg/dL (7-17); CALCIUM 7.3 mg/dl (8.6-10.4); GFR NON-AFRICAN AMERICAN > 60
[2018-11-02] MEDS: Pantoprazole 40 mg Susp UD GT SCH ×2 (08:50→21:40)
[2018-11-02] MEDS: POLYETHYLENE GLYCOL 3350 17 GM/Dose PACKET PO SCH ×2 (09:24→17:14)
[2018-11-02] MEDS: Modafinil 50 MG TAB PO SCH (09:25)
[2018-11-02] MEDS: Multiple Vitamins Tab PEG SCH (09:25)
[2018-11-02] MEDS: Vitamins A & D Oint UD Foilpak TOP SCH (09:26)
[2018-11-02] MEDS: Lactobacillus Acidophilus 500 MU Cap PO SCH ×2 (09:26→17:15)
[2018-11-02] MEDS: Simethicone 80 mg Chewtab PO SCH ×4 (09:30→21:41)
[2018-11-02 16:45] LABS: ABG ALLEN TEST UNABLE; ARTERIAL BLOOD GAS HCO3 17.8 mmol/L (21-28); ARTERIAL BLOOD GAS HEMOGLOBIN 8.4 g/dL (11.7-17.4); ARTERIAL BLOOD GAS O2 SAT 98.8 % (95-98); ARTERIAL BLOOD GAS PCO2 29 mm/Hg (35-45); ARTERIAL BLOOD GAS PH 7.34 (7.35-7.45); ARTERIAL BLOOD GAS PO2 106 mm/Hg (80-100); ARTERIAL BLOOD GAS TCO2 16.5 mmol/L (22-28)
[2018-11-02] MEDS ORDERED: Dextrose 5%/0.45% NS 1,000 ML IV SCH (17:45)
--- NOTE | 2018-11-02 18:20 | RAD ---
Date of service: 11/02/2018 HISTORY: pneumonia COMPARISON: 10/31/2018. FINDINGS: LUNGS: Pulmonary edema, moderate and progressive. PLEURA: Stable position pigtail catheter in the left pleural space. Stable position of pigtail catheter in the right pleural space. CARDIOVASCULAR: Atherosclerotic calcifications identified primarily aortic arch. OSSEOUS STRUCTURES: No significant abnormalities. VISUALIZED UPPER ABDOMEN: Normal. OTHER FINDINGS: Stable, satisfactory position of tracheostomy device. IMPRESSION: Worsening pulmonary edema. Stable position of support apparatus including tracheostomy device in bilateral pigtail catheters.
--- NOTE | 2018-11-02 18:20 | CP.PCM.PN ---
Subjective - Date & Time of Evaluation Date of Evaluation: 11/02/18 Time of Evaluation: 08:00 - Subjective Subjective: events noted vented in nad nonverbal, not following commands, responsive to pain, opens eye spontaneously. Objective - Vital Signs/Intake and Output Vital Signs (last 24 hours): Temp Pulse Resp BP Pulse Ox 97.4 F L 87 15 121/67 100 11/02/18 12:00 11/02/18 08:00 11/02/18 12:00 11/02/18 12:00 11/02/18 12:00 Intake and Output: 11/02/18 11/02/18 06:59 18:59 Intake Total 1175 1495 Output Total 500 0 Balance 675 1495 - Medications Medications: Current Medications Albuterol/Ipratropium (Duoneb 3 Mg/0.5 Mg (3 Ml) Ud) 3 ml INH RQ4 [facility] Last Admin: 11/02/18 15:58 Dose: 3 ml Ascorbic Acid (Vitamin C 500 Mg Tab) 1,000 mg NG DAILY [facility] Last Admin: 11/02/18 09:30 Dose: 1,000 mg Aspirin (Aspirin Chewable) 81 mg GT DAILY [facility] Last Admin: 11/02/18 09:26 Dose: 81 mg Dextrose (Dextrose 50% Inj) 0 ml IVP .STAT PRN; Protocol PRN Reason: Hypoglycemia Protocol Dextrose (Glutose 15) 0 gm PO .ONCE PRN; Protocol PRN Reason: Hypoglycemia Protocol Glucagon (Glucagen Diagnostic Kit) 0 mg IM .STAT PRN; Protocol PRN Reason: Hypoglycemia Protocol Cefepime HCl 1 gm/ Dextrose 50 mls @ 100 mls/hr IVPB Q12H [facility]; Protocol Last Admin: 11/02/18 08:51 Dose: 100 mls/hr Dextrose/Sodium Chloride (Dextrose 5%/0.45% Ns 1000 Ml) 1,000 mls @ 50 mls/hr IV .Q20H [facility] Last Admin: 11/02/18 17:57 Dose: 50 mls/hr Lactobacillus Acidophilus (Bacid Acidophilus) 1 cap PO BID [facility] Last Admin: 11/02/18 17:15 Dose: 1 cap Methimazole (Tapazole) 10 mg PO Q8 [facility] Last Admin: 11/01/18 05:57 Dose: 10 mg Metoclopramide HCl (Reglan) 10 mg IVP ACHS [facility] Midodrine (Proamatine) 10 mg PO TID [facility] Last Admin: 11/02/18 17:15 Dose: 10 mg Modafinil (Provigil) 50 mg PO DAILY [facility] Last Admin: 11/02/18 09:25 Dose: 50 mg Multivitamins (Hexavitamin) 1 tab PEG DAILY [facility] Last Admin: 11/02/18 09:25 Dose: 1 tab Pantoprazole Sodium (Protonix Susp) 40 mg GT Q12H [facility] Last Admin: 11/02/18 08:50 Dose: 40 mg Polyethylene Glycol (Miralax) 17 gm PO BID [facility] Last Admin: 11/02/18 17:14 Dose: 17 gm Simethicone (Mylicon Chew Tab) 80 mg PO QID [facility] Last Admin: 11/02/18 17:14 Dose: 80 mg Tamsulosin HCl (Flomax) 0.4 mg PEG DAILY [facility] Last Admin: 11/02/18 09:26 Dose: 0.4 mg Vitamin A (Vitamin A & D Oint Ud Foilpak) 0.5 ea TOP DAILY [facility] Last Admin: 11/02/18 09:26 Dose: 0.5 ea - Labs Labs: 11/01/18 06:13 11/02/18 06:11 PT 13.3 SECONDS (9.7-12.2) H 10/23/18 06:05 INR 1.2 10/23/18 06:05 APTT 23 SECONDS (21-34) 10/02/18 06:10 - Constitutional Appears: Non-toxic, Chronically Ill - Head Exam Head Exam: NORMOCEPHALIC - Eye Exam Eye Exam: absent: Scleral icterus - ENT Exam ENT Exam: Mucous Membranes Dry - Neck Exam Neck Exam: absent: Lymphadenopathy - Respiratory Exam Respiratory Exam: Decreased Breath Sounds, Prolonged Expiratory Phase, Rhonchi - Cardiovascular Exam Cardiovascular Exam: REGULAR RHYTHM, +S1, +S2 - GI/Abdominal Exam GI & Abdominal Exam: Distended, Soft. absent: Tenderness - Rectal Exam Rectal Exam: Deferred - Exam Exam: NORMAL INSPECTION - Extremities Exam Extremities Exam: absent: Pedal Edema - Back Exam Back Exam: absent: CVA tenderness (L), CVA tenderness (R) - Neurological Exam Neurological Exam: Altered - Psychiatric Exam Psychiatric exam: Depressed Assessment and Plan (1) NEHA (acute kidney injury) Status: Acute (2) Acute renal failure Status: Acute (3) Acute respiratory failure Status: Acute (4) Aspiration pneumonia Status: Acute (5) Septic shock Status: Acute (6) Urinary tract infection Status: Acute (7) Diabetes mellitus Status: Chronic (8) Anoxic brain damage Status: Acute - Assessment and Plan (Free Text) Assessment: cont IV antibiotics folllow up CXR
[2018-11-02] MEDS ORDERED: Potassium Ch 20mEq in D5-1/2NS 1,000 ML IV SCH (21:15)
[2018-11-03] MEDS: Albuterol-Ipratrop 3 mg / 0.5 (3 ml) UD INH SCH ×6 (03:05→23:38)
[2018-11-03 06:34] LABS: BASO # 0.1 K/uL (0.0-0.2); BASO % 0.7 % (0.0-2.0); EOS # 0.6 K/uL (0.0-0.7); EOS % 4.7 % (0.0-4.0); HEMOGLOBIN 8.6 g/dL (11.0-16.0); LYMPH % 8.5 % (20.0-40.0); MEAN CORPUSCULAR HEMOGLOBIN 29.7 pg (27.0-31.0); MEAN PLATELET VOLUME 7.5 fL (7.2-11.7); MONO # 0.4 K/uL (0.0-0.8); MONO % 3.4 % (0.0-10.0); NEUT # 10.2 K/uL (1.8-7.0); NEUT % 82.7 % (50.0-75.0); PLATELET COUNT 513 K/uL (130-400); RBC 2.91 Mil/uL (3.80-5.20); RED CELL DISTRIBUTION WIDTH 19.4 % (11.5-14.5); WHITE BLOOD COUNT 12.4 K/uL (4.8-10.8)
[2018-11-03 06:53] LABS: ALB/GLOB RATIO 0.8 (1.0-2.1); ALBUMIN 2.1 g/dL (3.5-5.0); ALT/SGPT 10 U/L (9-52); AST/SGOT 16 U/L (14-36); BLOOD UREA NITROGEN 16 mg/dL (7-17); CALCIUM 7.6 mg/dl (8.6-10.4); GFR NON-AFRICAN AMERICAN > 60
--- NOTE | 2018-11-03 07:18 | CP.PCM.PN ---
<Cydney Herbert - Last Filed: 11/03/18 12:57> Subjective - Date & Time of Evaluation Date of Evaluation: 11/03/18 Time of Evaluation: 07:17 - Subjective Subjective: PGY-1 Cydney Herbert D.O. Medicine progress note for Dr. Leahy's service: Patient was seen and examined this morning. Patient is sleeping in bed, no acute distress. Nursing reports still no BM, abdomen still distended. Feedings are held. Patient still trach on vent, nonverbal, not following commands, responsive to pain. Objective - Vital Signs/Intake and Output Vital Signs (last 24 hours): Temp Pulse Resp BP Pulse Ox 97.2 F L 81 14 111/63 98 11/03/18 04:00 11/03/18 04:00 11/03/18 04:00 11/03/18 04:00 11/03/18 04:00 Intake and Output: 11/03/18 11/03/18 06:59 18:59 Intake Total 700 Output Total 1675 Balance -975 - Medications Medications: Current Medications Albuterol/Ipratropium (Duoneb 3 Mg/0.5 Mg (3 Ml) Ud) 3 ml INH RQ4 [facility] Last Admin: 11/03/18 03:05 Dose: 3 ml Ascorbic Acid (Vitamin C 500 Mg Tab) 1,000 mg NG DAILY [facility] Last Admin: 11/02/18 09:30 Dose: 1,000 mg Aspirin (Aspirin Chewable) 81 mg GT DAILY [facility] Last Admin: 11/02/18 09:26 Dose: 81 mg Dextrose (Dextrose 50% Inj) 0 ml IVP .STAT PRN; Protocol PRN Reason: Hypoglycemia Protocol Dextrose (Glutose 15) 0 gm PO .ONCE PRN; Protocol PRN Reason: Hypoglycemia Protocol Glucagon (Glucagen Diagnostic Kit) 0 mg IM .STAT PRN; Protocol PRN Reason: Hypoglycemia Protocol Cefepime HCl 1 gm/ Dextrose 50 mls @ 100 mls/hr IVPB Q12H [facility]; Protocol Last Admin: 11/02/18 21:39 Dose: 100 mls/hr Dextrose/Sodium Chloride (Dextrose 5%/0.45% Ns 1000 Ml) 1,000 mls @ 50 mls/hr IV .Q20H [facility] Last Admin: 11/02/18 17:57 Dose: 50 mls/hr Potassium Chloride/Dextrose/Sod Cl (Potassium Chl 20 Meq In D5-1/2ns) 1,000 mls @ 50 mls/hr IV .Q20H [facility] Last Admin: 11/02/18 22:15 Dose: 50 mls/hr Lactobacillus Acidophilus (Bacid Acidophilus) 1 cap PO BID [facility] Last Admin: 11/02/18 17:15 Dose: 1 cap Methimazole (Tapazole) 10 mg PO Q8 [facility] Last Admin: 11/01/18 05:57 Dose: 10 mg Metoclopramide HCl (Reglan) 10 mg IVP ACHS [facility] Last Admin: 11/02/18 21:40 Dose: 10 mg Midodrine (Proamatine) 10 mg PO TID [facility] Last Admin: 11/02/18 17:15 Dose: 10 mg Modafinil (Provigil) 50 mg PO DAILY [facility] Last Admin: 11/02/18 09:25 Dose: 50 mg Multivitamins (Hexavitamin) 1 tab PEG DAILY [facility] Last Admin: 11/02/18 09:25 Dose: 1 tab Pantoprazole Sodium (Protonix Susp) 40 mg GT Q12H [facility] Last Admin: 11/02/18 21:40 Dose: 40 mg Polyethylene Glycol (Miralax) 17 gm PO BID [facility] Last Admin: 11/02/18 17:14 Dose: 17 gm Simethicone (Mylicon Chew Tab) 80 mg PO QID [facility] Last Admin: 11/02/18 21:41 Dose: 80 mg Tamsulosin HCl (Flomax) 0.4 mg PEG DAILY [facility] Last Admin: 11/02/18 09:26 Dose: 0.4 mg Vitamin A (Vitamin A & D Oint Ud Foilpak) 0.5 ea TOP DAILY [facility] Last Admin: 11/02/18 09:26 Dose: 0.5 ea - Labs Labs: 11/03/18 06:26 11/03/18 06:24 PT 13.3 SECONDS (9.7-12.2) H 10/23/18 06:05 INR 1.2 10/23/18 06:05 APTT 23 SECONDS (21-34) 10/02/18 06:10 - Additional Findings Additional findings: - Constitutional Appears: No Acute Distress, Chronically Ill - Head Exam Head Exam: ATRAUMATIC, NORMAL INSPECTION - Eye Exam Eye Exam: EOMI, PERRL - ENT Exam ENT Exam: Mucous Membranes Moist - Respiratory Exam Respiratory Exam: absent: Respiratory Distress Additional comments: B/l chest tubes - L output: 5 mL last 24 hrs - R output: 1090 mL last 24 hrs Trach on vent- FiO2 40 - Cardiovascular Exam Cardiovascular Exam: RRR - GI/Abdominal Exam GI & Abdominal Exam: Distended, Soft, Normal Bowel Sounds PEG- feeds held, no signs of bleeding or infection - Exam Additional comments: Hernandes output 580 mL last 24 hrs - Extremities Exam Additional comments: Diffuse atrophy/muscle wasting - Neurological Exam Neurological Exam: Alert, Altered, Awake. absent: Normal Gait, Oriented x3 - Psychiatric Exam Additional comments: Nonverbal - Skin Skin Exam: Dry, Intact, Normal Color, Warm Assessment and Plan - Assessment and Plan (Free Text) Assessment: This is a 52 yo female originally admitted to the ICU for septic shock 2/2 to PNA/UTI worsened by cardiac arrest and anoxic brain injury. Patient foudn to have apical thrombus in heart. Patient is s/p trach and PEG. Patient still unable to be weaned off vent. She has had multiple complications, including DVT and infections (PNA, UTI). s/p IVC filter 08/23. s/p multiple chest tube placements Sep 19-Oct 21. s/p LP 09/15. Patient has shown minimal improvement of cognitive function during the course of this hospitalization. Patient does not have any insurance and therefore cannot be placed in rehab/NH. Multiple conversa tions with regarding poor prognosis- he wishes to keep her full code. Palliative and pastoral care have been on board. Plan: Altered mental status/Encephalopathy- suspect anoxic encephalopathy - Code Blue 07/10 and 07/20 - Off sedation - Modafinil 50 mg PO daily - CT head (08/28/18): No hemorrhage or midline shift - MRI brain (09/08/18): No definite mass effect or suspicious extra axial collection. No evidence of acute or subacute brain infarction at this time. Borderline pattern of hydrocephalus. - LP 09/15/18: normal opening pressure - LDH 30, glucose 69, tot prot 67 - CSF Cx: no growth - Other CSF studies pending- called lab 11/01, they will contact [facility] for update - Neurology consulted (George/Ankit) Acute respiratory failure- s/p trach on vent, unable to wean - Tracheostomy 07/24/18, s/p bronchoscopy 08/23 - Patient had tolerated trach collars in early Aug 2018; however she has been on vent to trach since. Fi02: 40% - Bronchoscopy (08/23/18) by Dr. Lozada - Bronchial washings: Pseudomonas Aeruginosa - Fungal Cx: negative - Mycobacterial Cx: negative - Chest physiotherapy - Most recent CT chest (10/27/18): Large bilateral pleural effusions and associated consolidations. Trace pericardial effusion. Borderline cardiomegaly. Enlarged heterogeneous partially imaged thyroid gland. - Monitor CO2 - ABG on FiO2 40 (11/02/18): pH 7.34, pCO2 29, pO2 106 - Start Sodium bicarb 650 mg PEG BID - Duonebs Q4H MANOLO - Pulmonary consulted (Neville) Distended abdomen, worsening- likely constipation, several enemas given, last BM 10/31 (small) - AXR (10/28/18): Nonspecific bowel gas pattern with relative paucity of bowel gas. - Repeat AXR (11/02/18): Normal bowel gas pattern. - Hold tube feeds 11/02- residual 200 cc - Increase Reglan to 10 mg IV Q6H - Miralax PEG BID - Simethicone 80 mg PEG QID - Phosphate enema x4 - Dulcolax MT x1 - Lactulose MT x1 Pleural effusions- s/p bilateral chest tubes - Multiple chest tubes and thoracenteses for effusions, most recent s/p bilateral chest tubes 10/27 - Pleural fluid from 10/13/18 - WBC 794, RBC 2083, tot cells 100, neutrophils 87% - Tot prot<3, LDH 145, glucose 146 - CT chest (10/27/18): Placment of 8.5 [place] Islander pigtail drainage catheter within right and left pleural space - Most recent CXR (10/31/18): Status post bilateral chest tube placements. Marked reduction of bilateral pleural effusions, commensurate re-expansion of both lungs. - Repeat CXR pending - Discontinue IVF - IR consulted (Partha) - Pulmonology consulted (Neville) Thyroid disorder - Thyroid US (07/16/18): Heterogeneous thyroid echotexture. Numerous nodules as described above. Suggest percutaneous biopsy of the following suspicious nodules; 1.8 x 0.9 x 1.7 cm right lower pole nodule, 1.0 x 0.7 x 0.9 cm right upper pole lesion with intracystic vascular nodule, complex left upper pole nodule measuring 2.1 x 1.5 x 1.8 cm. - Note: Initial thyroid studies taken before amiodarone was given- this is NOT amiodarone induced - TSH <0.02 in 07/2018, 10/31/18 TSH 18.10 - Free T4 >3 in 07/2018, 10/31/2018 free T4 0.24 - Recheck TSH, free T4 on 11/08/18 - Methimazole to 10 mg PO Q8H- hold for 5 days (11/01-11/06/18) - Off Propranolol 5 mg PO TID due to hypotension - Endocrinology consulted (Irwin) Hypotension, improved, stable - Remains stable in 100s-120s/50s-60s - Monitor albumin, administer PRN doses - Midodrine 10 mg PEG TID - Start D51/2NS @ 50 Atrial fibrillation RVR - EKG (10/29/18): Afib HR 130 - Lopressor 2.5 mg IVP PRN - Cardiology consulted (Nolan) Deconditioning - Patient needs aggressive continued PT/OT- PT signed off as patient does not follow directions - Nursing and move patient OOB to chair - Social work note (08/09/18): patient is undocumented, has not health insurance, discharge planning will be at home with Septic Shock 2/2 Pneumonia and Urinary Tract Infection (VRE and Pseudomonas)- urinary retention - Off pressors (previously on 3) - Mild leukocytosis (12.4) - Afebrile since 10/21/18 - Procal 1.49 on 11/01/18, 0.66 on 10/21/18 - CXR (11/02/18): worsening pulmonary edema - Most recent blood cultures negative - Most recent urine cultures (10/21/18) +VRE/Pseudomonas, suspect patient likely colonized - Hernandes in place - Midline removed 11/01/18 - Flomax 0.4 mg PEG daily - Cefepime 1 g Q12H- started 10/27 - ID consulted (Vinod) Anemia 2/2 to Chronic Diseases +/- Dysfunctional uterine bleeding, stable - Stool occult blood negative - Iron normal, TIBC low, Iron saturation normal, Ferritin normal - B12, folate normal - Vaginal US: thickened endometrium - Transfused pRBC: 1 unit 07/22/18, 2 units 08/13/18, 1 unit 08/17/18, 1 unit 08/23/18 - OBGYN consulted (Gilberto)- no hysterectomy Apical thrombus - Echo (07/07/18) before cardiac arrest: EF 40-45% - Echo (07/10/19) after cardiac arrest: EF 40%, LV large apical hypokinesis, large 30x20 mm soft tissue apical sessile mass suggestive of thrombus - Echo (08/17/19): LV clot, no significant change - Too high risk for HUBERT - Previously on heparin gtt, Eliquis- stopped due to anemia and vaginal bleeding - ASA 81 mg PEG daily LLE Deep vein thrombosis s/p IVC filter - Venous Doppler (07/18/18): Acute thrombosis of the left common femoral and femoral veins with severe reduction of the venous return - Resolved on repeat imaging - Previously on heparin gtt, Eliquis- stopped due to anemia and vaginal bleeding - s/p IVC filter on 08/23/18 - Vasc surgery consulted (Vicky) Type 2 diabetes mellitus, chronic - A1c: 7.8 - Hypoglycemia protocol - Accuchecks Q6H - ISS Q6H Vtach- Code blue x2 (07/10/18) - Previously on amiodarone ggt - Cardiology consulted (Nolan) Acute kidney failure, resolved - Required dialysis early in admission before code blues - Monitor BUN, Cr Shock liver, resolved - Hepatitis panel negative - HIV negative - Monitor LFTs Ppx: VTE: SCDs GI: Protonix 40mg PEG Q12H PEG: [facility] goal rate 40 mL/hr- feeds held due to constipation * Lactobacillus 1 cap PEG Q12H * Multivitamin PEG daily * Vitamin C 1,000 PEG daily * Vitamin A&E Code status: full code- Palliative consulted Case was discussed with attending, Dr. Leahy. <Saira Leahy V - Last Filed: 11/03/18 21:17> Objective - Vital Signs/Intake and Output Vital Signs (last 24 hours): Temp Pulse Resp BP Pulse Ox 97.6 F 70 16 95/49 L 100 11/03/18 16:00 11/03/18 16:00 11/03/18 16:00 11/03/18 16:00 11/03/18 16:00 Intake and Output: 11/03/18 11/04/18 18:59 06:59 Intake Total 450 Output Total 350 Balance 100 - Medications Medications: Current Medications Albuterol/Ipratropium (Duoneb 3 Mg/0.5 Mg (3 Ml) Ud) 3 ml INH RQ4 [facility] Last Admin: 11/03/18 19:41 Dose: 3 ml Ascorbic Acid (Vitamin C 500 Mg Tab) 1,000 mg NG DAILY [facility] Last Admin: 11/03/18 09:07 Dose: 1,000 mg Aspirin (Aspirin Chewable) 81 mg GT DAILY [facility] Last Admin: 11/03/18 09:07 Dose: 81 mg Dextrose (Dextrose 50% Inj) 0 ml IVP .STAT PRN; Protocol PRN Reason: Hypoglycemia Protocol Dextrose (Glutose 15) 0 gm PO .ONCE PRN; Protocol PRN Reason: Hypoglycemia Protocol Glucagon (Glucagen Diagnostic Kit) 0 mg IM .STAT PRN; Protocol PRN Reason: Hypoglycemia Protocol Cefepime HCl 1 gm/ Dextrose 50 mls @ 100 mls/hr IVPB Q12H [facility]; Protocol Last Admin: 11/03/18 09:06 Dose: 100 mls/hr Dextrose/Sodium Chloride (Dextrose 5%/0.9% Ns 1000 Ml) 1,000 mls @ 50 mls/hr IV .Q20H [facility] Last Admin: 11/03/18 12:51 Dose: 50 mls/hr Lactobacillus Acidophilus (Bacid Acidophilus) 1 cap PO BID [facility] Last Admin: 11/03/18 17:46 Dose: 1 cap Methimazole (Tapazole) 10 mg PO Q8 [facility] Last Admin: 11/01/18 05:57 Dose: 10 mg Metoclopramide HCl (Reglan) 10 mg IVP Q6H [facility] Last Admin: 11/03/18 15:16 Dose: 10 mg Midodrine (Proamatine) 10 mg PO TID [facility] Last Admin: 11/03/18 17:46 Dose: 10 mg Modafinil (Provigil) 50 mg PO DAILY [facility] Last Admin: 11/03/18 09:07 Dose: 50 mg Multivitamins (Hexavitamin) 1 tab PEG DAILY [facility] Last Admin: 11/03/18 09:07 Dose: 1 tab Pantoprazole Sodium (Protonix Susp) 40 mg GT Q12H [facility] Last Admin: 02/01/19 09:06 Dose: 40 mg Polyethylene Glycol (Miralax) 17 gm PO BID [facility] Last Admin: 11/03/18 17:46 Dose: 17 gm Simethicone (Mylicon Chew Tab) 80 mg PO QID [facility] Last Admin: 11/03/18 17:46 Dose: 80 mg Sodium Bicarbonate (Sodium Bicarbonate Tab) 650 mg PO BID [facility] Last Admin: 11/03/18 17:46 Dose: 650 mg Tamsulosin HCl (Flomax) 0.4 mg PEG DAILY [facility] Last Admin: 11/03/18 09:07 Dose: 0.4 mg Vitamin A (Vitamin A & D Oint Ud Foilpak) 0.5 ea TOP DAILY [facility] Last Admin: 11/03/18 09:08 Dose: 0.5 ea - Labs Labs: 11/03/18 06:26 11/03/18 06:24 PT 13.3 SECONDS (9.7-12.2) H 10/23/18 06:05 INR 1.2 10/23/18 06:05 APTT 23 SECONDS (21-34) 10/02/18 06:10 Assessment and Plan (1) Septic shock Status: Acute (2) Acute respiratory failure Status: Acute (3) Urinary tract infection Status: Acute (4) Acute renal failure Status: Acute (5) Aspiration pneumonia Status: Acute (6) Diabetes mellitus Status: Chronic (7) Ventricular arrhythmia Status: Acute (8) Hyperthyroidism Status: Acute (9) Anemia Status: Acute (10) Prophylactic measure Status: Acute Attending/Attestation - Attestation I have personally seen and examined this patient.: Yes I have fully participated in the care of the patient.: Yes I have reviewed all pertinent clinical information, including history, physical exam and plan: Yes Notes (Text): Patient seen, examined, and case discussed with day-time resident. This is a 53-year-old female with a prolonged hospitalization for treatment for septic shock complicated by both pneumonia and urinary tract infections, anoxic encephalopathy likely secondary to 2 cardiac arrest during hospitalization, hyperthyroidism which had been controlled on methimazole, which is on hold until nov 05, shock liver which is now recovered, history of apical thrombus which is currently being treated with aspirin and is not on anticoagulation secondary to worsening heavy vaginal bleeding which required multiple blood transfusions during hospitalization, history of left lower extremity DVT which falling 1 month of anticoagulation has radiographically disappeared on repeat ultrasound and has now an IVC filter, as well as diabetes, vitamin D deficiency. CT chest on October 23, 2018 noted large bilateral pleural effusions with associated consolidations. Trace pericardial effusion. Borderline card iomegaly. Enlarged heterogeneous partially imaged thyroid gland. Tracheostomy tube. Limited visualization of the noncontrast upper abdominal IVC filter. Bilateral renal cyst. Small perihepatic and perisplenic ascites. Pancreatic atrophy. Possible tiny gallstone. Indeterminate 13 mm left upper lobe nodule indeterminate. Patient under underwent chest tube placement with interventional radiology on October [address] placement of 8.5 [place] Islander pigtail drain catheter within the right and left pleural space. Trach aspirate noted for Pseudomonas. Patient was placed on Maxipime since 10/27/18 per infectious disease. Pleural fluid shows no growth. Will need to monitor fluid output. Chest xray repeated yesterday in light of recent chest tube placements. Patient is noted to be incontinent of the urine has been straight cath when she does retain. Patient was on [address] way Hernandes since 10/05/17 evening with CBI to clean out urine which she is off. Patient is off antibiotic since 10/05/17. Blood cultures 10/14/18 which show no growth for 5 days X2. She had a fever on 10/21/18 which was 100.4; has remained afebrile since. Follow-up blood culture (10/21/18) werre negative. Blood culture from 10/28/18 so far no growth. Procalcitonin is high: 1.49 in light of Pseudomonas pneumonia. Patient has been on Maxipime 1gm IV Q12H since 10/27/18. Continue to monitor for fever and white count. Patient has a mild white count but no fever. Also note patient did underwent a lumbar puncture on September 15 HSV-2 IgM antibody, VDRL, and the West Nile are still pending. Physical therapy had signed off on September 24 because patient is not a candidate because she cannot follow directions. Patient would be an ideal candidate for LTAC however she does not have insurance, her is [place] from this [place] which limits her ability for services. The other thing is patient still remains trach to vent as well. Also to note patient does have sequential compressive stocking since the follow- up venous Doppler which did indicate that the clot had cleared.Patient does have noted muscle wasting. Wound care re-evaluated the patient on 10/05/18 for skin break down over the flexor surfaces over the knee. New recommendations were placed. Patient has dressings over the sites. Patient's midodrine increased to 10mg PO TID to increase blood pressure. Evening, 10/30/18 patient had an episode of atrial fib RVR which required Lopressor given by nighttime resident. We repeated thyroid studies with elevated TSH, Free T4 normal. We will f/u with endocrinology regarding dose adjustment of methiazole. Endocrinology noted to hold the methizole for 5 days (start 11/01/18 until 11/05/18) and then resume 10mg POq8H, then recheck thyroid on Tuesday, Nov 08 Patient given dose of Albumin 11/01/18 to help improve blood pressure. Patient ordered for phosphate enema 10/31/18. patient restarted on tube feedings 10/30/18. patient had passed gas overnight but did not have a blood movement. patient placed on miralax and reglan to help promote bowel movement. Patient had a small bowel movement on 10/31/18 and is passing gas. Patient had abdominal xray to repeat. ABG is essentially normal. Patient bicarbonate is mildy low given 1 amp of sodium bicarbonate. Held feeds on 11/02/18. Started on gentle Iv hydration evening of 11/02/18. Patient ordered for Lactulose in the morning and dose of Ducolax per rectal in the evening. Monitor for bowel movement prior to starting feeds. Chest xray was repeated 10/31/18 which shows lungs are improving while has chest tubes. Patient noted to have poor prognosis though she has survived many things during her hospitalization. Her who remains in high spirits hopes that she will recover and has been persistently at bedside every single day since being hospitalized in July.
[2018-11-03 08:26] LABS: BANDS 1 % (0-2); EOSINOPHIL 7 % (0-4); LYMPHOCYTE 4 % (20-40); MONOCYTE 3 % (0-10); NEUTROPHIL 85 % (50-75); TOTAL CELLS COUNTED 100
[2018-11-03 08:27] LABS: ANISOCYTOSIS SLIGHT; PLATELET ESTIMATE INCREASED (NORMAL)
[2018-11-03] MEDS: POLYETHYLENE GLYCOL 3350 17 GM/Dose PACKET PO SCH ×2 (09:06→17:46)
[2018-11-03] MEDS: Pantoprazole 40 mg Susp UD GT SCH ×2 (09:06→22:00)
[2018-11-03] MEDS: Lactobacillus Acidophilus 500 MU Cap PO SCH ×2 (09:06→17:46)
[2018-11-03] MEDS: Multiple Vitamins Tab PEG SCH (09:07)
[2018-11-03] MEDS: Modafinil 50 MG TAB PO SCH (09:07)
[2018-11-03] MEDS: Simethicone 80 mg Chewtab PO SCH ×4 (09:07→23:30)
[2018-11-03] MEDS: Vitamins A & D Oint UD Foilpak TOP SCH (09:08)
[2018-11-03] MEDS ORDERED: Lactulose 10 gm/15 ml (Rectal Use) PR ONE (09:20)
--- NOTE | 2018-11-03 11:51 | RAD ---
Date of service: 11/02/2018 HISTORY: distended COMPARISON: 10/28/2018 FINDINGS: BOWEL: Normal bowel gas pattern. PEG tube noted. Vena caval filter noted. Pigtail catheter noted in right upper quadrant and left lung base. Likely bilateral pleural pigtail catheters. BONES: Normal. OTHER FINDINGS: None. IMPRESSION: Normal bowel gas pattern.
[2018-11-03] MEDS: Dextrose 5%/0.9% NS 1,000 ML IV SCH (12:51)
--- NOTE | 2018-11-03 18:16 | CP.PCM.PN ---
Subjective - Date & Time of Evaluation Date of Evaluation: 11/03/18 Time of Evaluation: 08:00 - Subjective Subjective: slow progress afebrile vented nad Objective - Vital Signs/Intake and Output Vital Signs (last 24 hours): Temp Pulse Resp BP Pulse Ox 97.6 F 70 16 95/49 L 100 11/03/18 16:00 11/03/18 16:00 11/03/18 16:00 11/03/18 16:00 11/03/18 16:00 Intake and Output: 11/03/18 11/03/18 06:59 18:59 Intake Total 700 Output Total 1675 Balance -975 - Medications Medications: Current Medications Albuterol/Ipratropium (Duoneb 3 Mg/0.5 Mg (3 Ml) Ud) 3 ml INH RQ4 [facility] Last Admin: 11/03/18 13:16 Dose: 3 ml Ascorbic Acid (Vitamin C 500 Mg Tab) 1,000 mg NG DAILY [facility] Last Admin: 11/03/18 09:07 Dose: 1,000 mg Aspirin (Aspirin Chewable) 81 mg GT DAILY [facility] Last Admin: 11/03/18 09:07 Dose: 81 mg Dextrose (Dextrose 50% Inj) 0 ml IVP .STAT PRN; Protocol PRN Reason: Hypoglycemia Protocol Dextrose (Glutose 15) 0 gm PO .ONCE PRN; Protocol PRN Reason: Hypoglycemia Protocol Glucagon (Glucagen Diagnostic Kit) 0 mg IM .STAT PRN; Protocol PRN Reason: Hypoglycemia Protocol Cefepime HCl 1 gm/ Dextrose 50 mls @ 100 mls/hr IVPB Q12H [facility]; Protocol Last Admin: 11/03/18 09:06 Dose: 100 mls/hr Dextrose/Sodium Chloride (Dextrose 5%/0.9% Ns 1000 Ml) 1,000 mls @ 50 mls/hr IV .Q20H [facility] Last Admin: 11/03/18 12:51 Dose: 50 mls/hr Lactobacillus Acidophilus (Bacid Acidophilus) 1 cap PO BID [facility] Last Admin: 11/03/18 17:46 Dose: 1 cap Methimazole (Tapazole) 10 mg PO Q8 [facility] Last Admin: 11/01/18 05:57 Dose: 10 mg Metoclopramide HCl (Reglan) 10 mg IVP Q6H [facility] Last Admin: 11/03/18 15:16 Dose: 10 mg Midodrine (Proamatine) 10 mg PO TID [facility] Last Admin: 11/03/18 17:46 Dose: 10 mg Modafinil (Provigil) 50 mg PO DAILY [facility] Last Admin: 11/03/18 09:07 Dose: 50 mg Multivitamins (Hexavitamin) 1 tab PEG DAILY [facility] Last Admin: 11/03/18 09:07 Dose: 1 tab Pantoprazole Sodium (Protonix Susp) 40 mg GT Q12H [facility] Last Admin: 11/03/18 09:06 Dose: 40 mg Polyethylene Glycol (Miralax) 17 gm PO BID [facility] Last Admin: 11/03/18 17:46 Dose: 17 gm Simethicone (Mylicon Chew Tab) 80 mg PO QID [facility] Last Admin: 11/03/18 17:46 Dose: 80 mg Sodium Bicarbonate (Sodium Bicarbonate Tab) 650 mg PO BID [facility] Last Admin: 11/03/18 17:46 Dose: 650 mg Tamsulosin HCl (Flomax) 0.4 mg PEG DAILY [facility] Last Admin: 11/03/18 09:07 Dose: 0.4 mg Vitamin A (Vitamin A & D Oint Ud Foilpak) 0.5 ea TOP DAILY [facility] Last Admin: 11/03/18 09:08 Dose: 0.5 ea - Labs Labs: 11/03/18 06:26 11/03/18 06:24 PT 13.3 SECONDS (9.7-12.2) H 10/23/18 06:05 INR 1.2 10/23/18 06:05 APTT 23 SECONDS (21-34) 10/02/18 06:10 - Constitutional Appears: Non-toxic, Chronically Ill - Head Exam Head Exam: NORMOCEPHALIC - Eye Exam Eye Exam: absent: Scleral icterus - ENT Exam ENT Exam: Mucous Membranes Dry - Neck Exam Neck Exam: absent: Lymphadenopathy - Respiratory Exam Respiratory Exam: Decreased Breath Sounds - Cardiovascular Exam Cardiovascular Exam: REGULAR RHYTHM - GI/Abdominal Exam GI & Abdominal Exam: Distended - Rectal Exam Rectal Exam: Deferred - Exam Exam: NORMAL INSPECTION - Extremities Exam Extremities Exam: Pedal Edema - Back Exam Back Exam: absent: CVA tenderness (L), CVA tenderness (R), paraspinal tenderness - Neurological Exam Neurological Exam: Altered Assessment and Plan (1) NEHA (acute kidney injury) Status: Acute (2) Acute renal failure Status: Acute (3) Acute respiratory failure Status: Acute (4) Aspiration pneumonia Status: Acute (5) Septic shock Status: Acute (6) Urinary tract infection Status: Acute (7) Diabetes mellitus Status: Chronic (8) Anoxic brain damage Status: Acute - Assessment and Plan (Free Text) Assessment: cont iv cefepime
--- NOTE | 2018-11-04 00:49 | CP.PCM.PN ---
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 Pt s/e at bedside, mental status unchanged, no acute events overnight as per nursing, still no bm Objective - Vital Signs/Intake and Output Vital Signs (last 24 hours): Temp Pulse Resp BP Pulse Ox 97.6 F 70 16 95/49 L 100 11/03/18 16:00 11/03/18 16:00 11/03/18 16:00 11/03/18 16:00 11/03/18 16:00 Intake and Output: 11/03/18 11/04/18 18:59 06:59 Intake Total 450 Output Total 350 Balance 100 - Medications Medications: Current Medications Albuterol/Ipratropium (Duoneb 3 Mg/0.5 Mg (3 Ml) Ud) 3 ml INH RQ4 [facility] Last Admin: 11/03/18 23:38 Dose: 3 ml Ascorbic Acid (Vitamin C 500 Mg Tab) 1,000 mg NG DAILY [facility] Last Admin: 11/03/18 09:07 Dose: 1,000 mg Aspirin (Aspirin Chewable) 81 mg GT DAILY [facility] Last Admin: 11/03/18 09:07 Dose: 81 mg Dextrose (Dextrose 50% Inj) 0 ml IVP .STAT PRN; Protocol PRN Reason: Hypoglycemia Protocol Dextrose (Glutose 15) 0 gm PO .ONCE PRN; Protocol PRN Reason: Hypoglycemia Protocol Glucagon (Glucagen Diagnostic Kit) 0 mg IM .STAT PRN; Protocol PRN Reason: Hypoglycemia Protocol Cefepime HCl 1 gm/ Dextrose 50 mls @ 100 mls/hr IVPB Q12H [facility]; Protocol Last Admin: 11/03/18 22:00 Dose: 100 mls/hr Dextrose/Sodium Chloride (Dextrose 5%/0.9% Ns 1000 Ml) 1,000 mls @ 50 mls/hr IV .Q20H [facility] Last Admin: 11/03/18 12:51 Dose: 50 mls/hr Lactobacillus Acidophilus (Bacid Acidophilus) 1 cap PO BID [facility] Last Admin: 11/03/18 17:46 Dose: 1 cap Methimazole (Tapazole) 10 mg PO Q8 [facility] Last Admin: 11/01/18 05:57 Dose: 10 mg Metoclopramide HCl (Reglan) 10 mg IVP Q6H [facility] Last Admin: 11/03/18 22:28 Dose: 10 mg Midodrine (Proamatine) 10 mg PO TID [facility] Last Admin: 11/03/18 17:46 Dose: 10 mg Modafinil (Provigil) 50 mg PO DAILY [facility] Last Admin: 11/03/18 09:07 Dose: 50 mg Multivitamins (Hexavitamin) 1 tab PEG DAILY [facility] Last Admin: 11/03/18 09:07 Dose: 1 tab Pantoprazole Sodium (Protonix Susp) 40 mg GT Q12H [facility] Last Admin: 11/03/18 22:00 Dose: 40 mg Polyethylene Glycol (Miralax) 17 gm PO BID [facility] Last Admin: 11/03/18 17:46 Dose: 17 gm Simethicone (Mylicon Chew Tab) 80 mg PO QID [facility] Last Admin: 11/03/18 23:30 Dose: 80 mg Sodium Bicarbonate (Sodium Bicarbonate Tab) 650 mg PO BID [facility] Last Admin: 11/03/18 17:46 Dose: 650 mg Tamsulosin HCl (Flomax) 0.4 mg PEG DAILY [facility] Last Admin: 11/03/18 09:07 Dose: 0.4 mg Vitamin A (Vitamin A & D Oint Ud Foilpak) 0.5 ea TOP DAILY [facility] Last Admin: 11/03/18 09:08 Dose: 0.5 ea - Labs Labs: 11/03/18 06:26 11/03/18 06:24 PT 13.3 SECONDS (9.7-12.2) H 10/23/18 06:05 INR 1.2 10/23/18 06:05 APTT 23 SECONDS (21-34) 10/02/18 06:10 - Additional Findings Additional findings: - Constitutional Appears: No Acute Distress, Chronically Ill - Head Exam Head Exam: ATRAUMATIC, NORMAL INSPECTION - Eye Exam Eye Exam: EOMI, PERRL - ENT Exam ENT Exam: Mucous Membranes Moist - Respiratory Exam Respiratory Exam: absent: Respiratory Distress Additional comments: Trach on vent- FiO2 40 - Cardiovascular Exam Cardiovascular Exam: RRR - GI/Abdominal Exam GI & Abdominal Exam: Distended, Soft, Normal Bowel Sounds PEG- feeds held, no signs of bleeding or infection - Exam Additional comments: Hernandes output 580 mL last 24 hrs - Extremities Exam Additional comments: Diffuse atrophy/muscle wasting - Neurological Exam Neurological Exam: Alert, Altered, Awake. absent: Normal Gait, Oriented x3 - Psychiatric Exam Additional comments: Nonverbal - Skin Skin Exam: Dry, Intact, Normal Color, Warm Assessment and Plan - Assessment and Plan (Free Text) Assessment: This is a 52 yo female originally admitted to the ICU for septic shock 2/2 to PNA/UTI worsened by cardiac arrest and anoxic brain injury. Patient foudn to have apical thrombus in heart. Patient is s/p trach and PEG. Patient still lin ble to be weaned off vent. She has had multiple complications, including DVT and infections (PNA, UTI). s/p IVC filter 08/23. s/p multiple chest tube placements Sep 19-Oct 21. s/p LP 09/15. Patient has shown minimal improvement of cognitive function during the course of this hospitalization. Patient does not have any insurance and therefore cannot be placed in rehab/NH. Multiple conversations with regarding poor prognosis- he wishes to keep her full code. Palliative and pastoral care have been on board. Plan: Altered mental status/Encephalopathy- suspect anoxic encephalopathy - Code Blue 07/10 and 07/20 - Off sedation - Modafinil 50 mg PO daily - CT head (08/28/18): No hemorrhage or midline shift - MRI brain (09/08/18): No definite mass effect or suspicious extra axial collection. No evidence of acute or subacute brain infarction at this time. Borderline pattern of hydrocephalus. - LP 09/15/18: normal opening pressure - LDH 30, glucose 69, tot prot 67 - CSF Cx: no growth - Other CSF studies pending- called lab 11/01, they will contact [facility] for update - Neurology consulted (George/Ankit) Acute respiratory failure- s/p trach on vent, unable to wean - Tracheostomy 07/24/18, s/p bronchoscopy 08/23 - Patient had tolerated trach collars in early Aug 2018; however she has been on vent to trach since. Fi02: 40% - Bronchoscopy (08/23/18) by Dr. Lozada - Bronchial washings: Pseudomonas Aeruginosa - Fungal Cx: negative - Mycobacterial Cx: negative - Chest physiotherapy - Most recent CT chest (10/27/18): Large bilateral pleural effusions and associated consolidations. Trace pericardial effusion. Borderline cardiomegaly. Enlarged heterogeneous partially imaged thyroid gland. - Monitor CO2 - ABG on FiO2 40 (11/02/18): pH 7.34, pCO2 29, pO2 106 - Start Sodium bicarb 650 mg PEG BID - Duonebs Q4H [facility] - Pulmonary consulted (Neville) Distended abdomen, worsening- likely constipation, several enemas given, last BM 10/31 (small) - AXR (10/28/18): Nonspecific bowel gas pattern with relative paucity of bowel gas. - Repeat AXR (11/02/18): Normal bowel gas pattern. - Hold tube feeds 11/02- residual 200 cc - Increase Reglan to 10 mg IV Q6H - Miralax PEG BID - Simethicone 80 mg PEG QID - Phosphate enema x4 - Dulcolax NC x1 - Lactulose NC x1 - Fleet enemas no efficacy yet, monitor and hold feeds Pleural effusions- s/p bilateral chest tubes - Multiple chest tubes and thoracenteses for effusions, most recent s/p bilateral chest tubes 10/27 - Pleural fluid from 10/13/18 - WBC 794, RBC 2083, tot cells 100, neutrophils 87% - Tot prot<3, LDH 145, glucose 146 - CT chest (10/27/18): Placment of 8.5 Ugandan pigtail drainage catheter within right and left pleural space - Most recent CXR (10/31/18): Status post bilateral chest tube placements. Marked reduction of bilateral pleural effusions, commensurate re-expansion of both lungs. - Repeat CXR 11/02: Worsening pulmonary edema - Discontinue IVF - IR consulted (Partha) - Pulmonology consulted (Neville) Thyroid disorder - Thyroid US (07/16/18): Heterogeneous thyroid echotexture. Numerous nodules as described above. Suggest percutaneous biopsy of the following suspicious nodules; 1.8 x 0.9 x 1.7 cm right lower pole nodule, 1.0 x 0.7 x 0.9 cm right upper pole lesion with intracystic vascular nodule, complex left upper pole nodule measuring 2.1 x 1.5 x 1.8 cm. - Note: Initial thyroid studies taken before amiodarone was given- this is NOT amiodarone induced - TSH <0.02 in 07/2018, 10/31/18 TSH 18.10 - Free T4 >3 in 07/2018, 10/31/2018 free T4 0.24 - Recheck TSH, free T4 on 11/08/18 - Methimazole to 10 mg PO Q8H- hold for 5 days (11/01-11/06/18) - Off Propranolol 5 mg PO TID due to hypotension - Endocrinology consulted (Irwin) Hypotension, improved, stable - Remains stable in 100s-120s/50s-60s - Monitor albumin, administer PRN doses - Midodrine 10 mg PEG TID - Start D51/2NS @ 50 Atrial fibrillation RVR - EKG (10/29/18): Afib HR 130 - Lopressor 2.5 mg IVP PRN - Cardiology consulted (Nolan) Deconditioning - Patient needs aggressive continued PT/OT- PT signed off as patient does not follow directions - Nursing and move patient OOB to chair - Social work note (08/09/18): patient is undocumented, has not health insurance, discharge planning will be at home with Septic Shock 2/2 Pneumonia and Urinary Tract Infection (VRE and Pseudomonas)- urinary retention - Off pressors (previously on 3) - Mild leukocytosis (12.4) - Afebrile since 10/21/18 - Procal 1.49 on 11/01/18, 0.66 on 10/21/18 - CXR (11/02/18): worsening pulmonary edema - Most recent blood cultures negative - Most recent urine cultures (10/21/18) +VRE/Pseudomonas, suspect patient likely colonized - Hernandes in place - Midline removed 11/01/18 - Flomax 0.4 mg PEG daily - Cefepime 1 g Q12H- started 10/27 - ID consulted (Vinod) Anemia 2/2 to Chronic Diseases +/- Dysfunctional uterine bleeding, stable - Stool occult blood negative - Iron normal, TIBC low, Iron saturation normal, Ferritin normal - B12, folate normal - Vaginal US: thickened endometrium - Transfused pRBC: 1 unit 07/22/18, 2 units 08/13/18, 1 unit 08/17/18, 1 unit 08/23/18 - OBGYN consulted (Gilberto)- no hysterectomy Apical thrombus - Echo (07/07/18) before cardiac arrest: EF 40-45% - Echo (07/10/19) after cardiac arrest: EF 40%, LV large apical hypokinesis, la rge 30x20 mm soft tissue apical sessile mass suggestive of thrombus - Echo (08/17/19): LV clot, no significant change - Too high risk for HUBERT - Previously on heparin gtt, Eliquis- stopped due to anemia and vaginal bleeding - ASA 81 mg PEG daily LLE Deep vein thrombosis s/p IVC filter - Venous Doppler (07/18/18): Acute thrombosis of the left common femoral and femoral veins with severe reduction of the venous return - Resolved on repeat imaging - Previously on heparin gtt, Eliquis- stopped due to anemia and vaginal bleeding - s/p IVC filter on 08/23/18 - Vasc surgery consulted (Vicky) Type 2 diabetes mellitus, chronic - A1c: 7.8 - Hypoglycemia protocol - Accuchecks Q6H - ISS Q6H Vtach- Code blue x2 (07/10/18) - Previously on amiodarone ggt - Cardiology consulted (Nolan) Acute kidney failure, resolved - Required dialysis early in admission before code blues - Monitor BUN, Cr Shock liver, resolved - Hepatitis panel negative - HIV negative - Monitor LFTs Ppx: VTE: SCDs GI: Protonix 40mg PEG Q12H PEG: Pulmocare goal rate 40 mL/hr- feeds held due to constipation * Lactobacillus 1 cap PEG Q12H * Multivitamin PEG daily * Vitamin C 1,000 PEG daily * Vitamin A&E Code status: full code- Palliative consulted Nasreen Villegas PGY1 <Saira Leahy V - Last Filed: 11/04/18 15:08> Objective - Vital Signs/Intake and Output Vital Signs (last 24 hours): Temp Pulse Resp BP Pulse Ox 97.8 F 67 16 106/55 L 100 11/04/18 08:00 11/04/18 08:00 11/04/18 08:00 11/04/18 08:00 11/04/18 08:00 Intake and Output: 11/04/18 11/04/18 06:59 18:59 Intake Total 765 Output Total 495 Balance 270 - Medications Medications: Current Medications Albuterol/Ipratropium (Duoneb 3 Mg/0.5 Mg (3 Ml) Ud) 3 ml INH RQ4 [facility] Last Admin: 11/04/18 11:39 Dose: 3 ml Ascorbic Acid (Vitamin C 500 Mg Tab) 1,000 mg NG DAILY [facility] Last Admin: 11/04/18 09:34 Dose: 1,000 mg Aspirin (Aspirin Chewable) 81 mg GT DAILY [facility] Last Admin: 11/04/18 09:34 Dose: 81 mg Dextrose (Dextrose 50% Inj) 0 ml IVP .STAT PRN; Protocol PRN Reason: Hypoglycemia Protocol Dextrose (Glutose 15) 0 gm PO .ONCE PRN; Protocol PRN Reason: Hypoglycemia Protocol Glucagon (Glucagen Diagnostic Kit) 0 mg IM .STAT PRN; Protocol PRN Reason: Hypoglycemia Protocol Cefepime HCl 1 gm/ Dextrose 50 mls @ 100 mls/hr IVPB Q12H [facility]; Protocol Last Admin: 11/04/18 09:35 Dose: 100 mls/hr Dextrose/Sodium Chloride (Dextrose 5%/0.9% Ns 1000 Ml) 1,000 mls @ 50 mls/hr IV .Q20H [facility] Last Admin: 11/04/18 06:47 Dose: 50 mls/hr Lactobacillus Acidophilus (Bacid Acidophilus) 1 cap PO BID [facility] Last Admin: 11/04/18 09:35 Dose: 1 cap Methimazole (Tapazole) 10 mg PO Q8 [facility] Last Admin: 11/01/18 05:57 Dose: 10 mg Metoclopramide HCl (Reglan) 10 mg IVP Q6H [facility] Last Admin: 11/04/18 09:35 Dose: 10 mg Midodrine (Proamatine) 10 mg PO TID [facility] Last Admin: 11/04/18 09:35 Dose: 10 mg Modafinil (Provigil) 50 mg PO DAILY [facility] Last Admin: 11/04/18 09:34 Dose: 50 mg Multivitamins (Hexavitamin) 1 tab PEG DAILY [facility] Last Admin: 11/04/18 09:34 Dose: 1 tab Pantoprazole Sodium (Protonix Susp) 40 mg GT Q12H [facility] Last Admin: 11/04/18 09:34 Dose: 40 mg Polyethylene Glycol (Miralax) 17 gm PO BID [facility] Last Admin: 11/04/18 09:37 Dose: Not Given Simethicone (Mylicon Chew Tab) 80 mg PO QID [facility] Last Admin: 11/04/18 09:53 Dose: 80 mg Sodium Bicarbonate (Sodium Bicarbonate Tab) 650 mg PO BID [facility] Last Admin: 11/04/18 09:34 Dose: 650 mg Tamsulosin HCl (Flomax) 0.4 mg PEG DAILY [facility] Last Admin: 11/04/18 09:34 Dose: 0.4 mg Vitamin A (Vitamin A & D Oint Ud Foilpak) 0.5 ea TOP DAILY [facility] Last Admin: 11/03/18 09:08 Dose: 0.5 ea - Labs Labs: 11/03/18 06:26 11/03/18 06:24 PT 13.3 SECONDS (9.7-12.2) H 10/23/18 06:05 INR 1.2 10/23/18 06:05 APTT 23 SECONDS (21-34) 10/02/18 06:10 Assessment and Plan (1) Septic shock Status: Acute (2) Acute respiratory failure Status: Acute (3) Urinary tract infection Status: Acute (4) Acute renal failure Status: Acute (5) Aspiration pneumonia Status: Acute (6) Diabetes mellitus Status: Chronic (7) Ventricular arrhythmia Status: Acute (8) Hyperthyroidism Status: Acute (9) Anemia Status: Acute (10) Prophylactic measure Status: Acute Attending/Attestation - Attestation I have personally seen and examined this patient.: Yes I have fully participated in the care of the patient.: Yes I have reviewed all pertinent clinical information, including history, physical exam and plan: Yes Notes (Text): Patient seen, examined, and case discussed with day-time resident. This is a 53-year-old female with a prolonged hospitalization for treatment for septic shock complicated by both pneumonia and urinary tract infections, anoxic encephalopathy likely secondary to 2 cardiac arrest during hospitalization, hyperthyroidism which had been controlled on methimazole, which is on hold until nov 05, shock liver which is now recovered, history of apical thrombus which is currently being treated with aspirin and is not on anticoagulation secondary to worsening heavy vaginal bleeding which required multiple blood transfusions during hospitalization, history of left lower extremity DVT which falling 1 month of anticoagulation has radiographically disappeared on repeat ultrasound and has now an IVC filter, as well as diabetes, vitamin D deficiency. CT chest on October 23, 2018 noted large bilateral pleural effusions with associated consolidations. Trace pericardial effusion. Borderline cardiomegaly. Enlarged heterogeneous partially imaged thyroid gland. Tracheostomy tube. Limited visualization of the noncontrast upper abdominal IVC filter. Bilateral renal cyst. Small perihepatic and perisplenic ascites. Pancreatic atrophy. Possible tiny gallstone. Indeterminate 13 mm left upper lobe nodule indeterminate. Patient under underwent chest tube placement with interventional radiology on October [address] placement of 8.5 [place]andan pigtail drain catheter within the right and left pleural space. Trach aspirate noted for Pseudomonas. Patient was placed on Maxipime since 10/27/18 per infectious disease. Pleural fluid shows no growth. Will need to monitor fluid output. Chest xray (11/02/18): worsening pulmonary edema. Stable position of support apparatus including tracheostomy device in bilateral pigtail catheters. Patient is noted to be incontinent of the urine has been straight cath when she does retain. Patient was on [address] way Hernandes since 10/05/17 evening with CBI to clean out urine which she is off. Patient is off antibiotic since 10/05/17. Blood cultures 10/14/18 which show no growth for 5 days X2. She had a fever on 10/21/18 which was 100.4; has remained afebrile since. Follow-up blood culture (10/21/18) werre negative. Blood culture from 10/28/18 so far no growth. Procalcitonin is high: 1.49 in light of Pseudomonas pneumonia. Patient has been on Maxipime 1gm IV Q12H since 10/27/18. Continue to monitor for fever and white count. Patient has a mild white count but no fever. Also note patient did underwent a lumbar puncture on September 15 HSV-2 IgM antibody, VDRL, and the West Nile are still pending. Physical therapy had signed off on September 24 because patient is not a candidate because she cannot follow directions. Patient would be an ideal candidate for LTAC however she does not have insurance, her is [place] from this [place] which limits her ability for services. The other thing is patient still remains trach to vent as well. Also to note patient does have sequential compressive stocking since the follow- up venous Doppler which did indicate that the clot had cleared.Patient does have noted muscle wasting. Wound care re-evaluated the patient on 10/05/18 for skin break down over the flexor surfaces over the knee. New recommendations were placed. Patient has dressings over the sites. Patient's midodrine increased to 10mg PO TID to increase blood pressure. Evening, 10/30/18 patient had an episode of atrial fib RVR which required Lopressor given by nighttime resident. We repeated thyroid studies with elevated TSH, Free T4 normal. We will f/u with endocrinology regarding dose ad justment of methiazole. Endocrinology noted to hold the methizole for 5 days (start 11/01/18 until 11/05/18) and then resume 10mg POq8H, then recheck thyroid on Tuesday, Nov 08 Patient given dose of Albumin 11/01/18 to help improve blood pressure. Patient ordered for phosphate enema 10/31/18. patient restarted on tube feedings 10/30/18. patient had passed gas overnight but did not have a blood movement. patient placed on miralax and reglan to help promote bowel movement. Patient had a small bowel movement on 10/31/18 and is passing gas. Patient had abdominal xray to repeat. ABG is essentially normal. Patient bicarbonate is mildy low given 1 amp of sodium bicarbonate. Held feeds on 11/02/18. Started on gentle Iv hydration evening of 11/02/18. Patient ordered for Lactulose in the morning and dose of Ducolax per rectal in the evening of 11/03/18. Patient has had a bowel movement on 11/04/18. Discontinue IV fluids and restart old peg feeds. Patient noted to have poor prognosis though she has survived many things during her hospitalization. Her who remains in high spirits hopes that she will recover and has been persistently at bedside every single day since being hospitalized in July.
[2018-11-04] MEDS: Albuterol-Ipratrop 3 mg / 0.5 (3 ml) UD INH SCH ×6 (03:18→23:59)
[2018-11-04] MEDS: Dextrose 5%/0.9% NS 1,000 ML IV SCH (06:47)
[2018-11-04] MEDS: Pantoprazole 40 mg Susp UD GT SCH ×2 (09:34→21:03)
[2018-11-04] MEDS: Modafinil 50 MG TAB PO SCH (09:34)
[2018-11-04] MEDS: Multiple Vitamins Tab PEG SCH (09:34)
[2018-11-04] MEDS: Lactobacillus Acidophilus 500 MU Cap PO SCH ×2 (09:35→18:45)
[2018-11-04] MEDS: POLYETHYLENE GLYCOL 3350 17 GM/Dose PACKET PO SCH ×2 (09:37→18:45)
[2018-11-04] MEDS: Simethicone 80 mg Chewtab PO SCH ×4 (09:53→21:02)
[2018-11-04] MEDS: Vitamins A & D Oint UD Foilpak TOP SCH (15:09)
--- NOTE | 2018-11-05 00:17 | CP.PCM.PN ---
<Bhanu Villegas - Last Filed: 11/05/18 00:15> Subjective - Date & Time of Evaluation Date of Evaluation: 11/05/18 Time of Evaluation: 00:12 - Subjective Subjective: HOSPITALIST SERVICE Pt s/e at bedside, no acute events overnight as per nursing, pt still same mental status, still no bm, Objective - Vital Signs/Intake and Output Vital Signs (last 24 hours): Temp Pulse Resp BP Pulse Ox 98.4 F 74 16 100/51 L 100 11/04/18 16:00 11/04/18 16:00 11/04/18 16:00 11/04/18 16:00 11/04/18 16:00 Intake and Output: 11/04/18 11/05/18 18:59 06:59 Intake Total 485 Output Total 450 Balance 35 - Medications Medications: Current Medications Albuterol/Ipratropium (Duoneb 3 Mg/0.5 Mg (3 Ml) Ud) 3 ml INH RQ4 [facility] Last Admin: 11/04/18 23:59 Dose: 3 ml Ascorbic Acid (Vitamin C 500 Mg Tab) 1,000 mg NG DAILY [facility] Last Admin: 11/04/18 09:34 Dose: 1,000 mg Aspirin (Aspirin Chewable) 81 mg GT DAILY [facility] Last Admin: 11/04/18 09:34 Dose: 81 mg Dextrose (Dextrose 50% Inj) 0 ml IVP .STAT PRN; Protocol PRN Reason: Hypoglycemia Protocol Dextrose (Glutose 15) 0 gm PO .ONCE PRN; Protocol PRN Reason: Hypoglycemia Protocol Glucagon (Glucagen Diagnostic Kit) 0 mg IM .STAT PRN; Protocol PRN Reason: Hypoglycemia Protocol Cefepime HCl 1 gm/ Dextrose 50 mls @ 100 mls/hr IVPB Q12H [facility]; Protocol Last Admin: 11/04/18 21:02 Dose: 100 mls/hr Lactobacillus Acidophilus (Bacid Acidophilus) 1 cap PO BID [facility] Last Admin: 11/04/18 18:45 Dose: 1 cap Methimazole (Tapazole) 10 mg PO Q8 [facility] Last Admin: 11/01/18 05:57 Dose: 10 mg Metoclopramide HCl (Reglan) 10 mg IVP Q6H [facility] Last Admin: 11/04/18 21:03 Dose: 10 mg Midodrine (Proamatine) 10 mg PO TID [facility] Last Admin: 11/04/18 18:45 Dose: 10 mg Modafinil (Provigil) 50 mg PO DAILY [facility] Last Admin: 11/04/18 09:34 Dose: 50 mg Multivitamins (Hexavitamin) 1 tab PEG DAILY [facility] Last Admin: 11/04/18 09:34 Dose: 1 tab Pantoprazole Sodium (Protonix Susp) 40 mg GT Q12H [facility] Last Admin: 11/04/18 21:03 Dose: 40 mg Polyethylene Glycol (Miralax) 17 gm PO BID [facility] Last Admin: 11/04/18 18:45 Dose: Not Given Simethicone (Mylicon Chew Tab) 80 mg PO QID [facility] Last Admin: 11/04/18 21:02 Dose: 80 mg Sodium Bicarbonate (Sodium Bicarbonate Tab) 650 mg PO BID [facility] Last Admin: 11/04/18 18:45 Dose: 650 mg Tamsulosin HCl (Flomax) 0.4 mg PEG DAILY [facility] Last Admin: 11/04/18 09:34 Dose: 0.4 mg Vitamin A (Vitamin A & D Oint Ud Foilpak) 0.5 ea TOP DAILY [facility] Last Admin: 11/04/18 15:09 Dose: 0.5 ea - Labs Labs: 11/03/18 06:26 11/03/18 06:24 PT 13.3 SECONDS (9.7-12.2) H 10/23/18 06:05 INR 1.2 10/23/18 06:05 APTT 23 SECONDS (21-34) 10/02/18 06:10 - Additional Findings Additional findings: - Constitutional Appears: No Acute Distress, Chronically Ill - Head Exam Head Exam: ATRAUMATIC, NORMAL INSPECTION - Eye Exam Eye Exam: EOMI, PERRL - ENT Exam ENT Exam: Mucous Membranes Moist - Respiratory Exam Respiratory Exam: absent: Respiratory Distress Additional comments: Trach on vent- FiO2 40 - Cardiovascular Exam Cardiovascular Exam: RRR - GI/Abdominal Exam GI & Abdominal Exam: Distended, Soft, Normal Bowel Sounds PEG- feeds held, no signs of bleeding or infection - Exam Additional comments: Hernandes output 580 mL last 24 hrs - Extremities Exam Additional comments: Diffuse atrophy/muscle wasting - Neurological Exam Neurological Exam: Alert, Altered, Awake. absent: Normal Gait, Oriented x3 - Psychiatric Exam Additional comments: Nonverbal - Skin Skin Exam: Dry, Intact, Normal Color, Warm Assessment and Plan - Assessment and Plan (Free Text) Assessment: This is a 52 yo female originally admitted to the ICU for septic shock 2/2 to PNA/UTI worsened by cardiac arrest and anoxic brain injury. Patient foudn to have apical thrombus in heart. Patient is s/p trach and PEG. Patient still unable to be weaned off vent. She has had multiple complications, including DVT and infections (PNA, UTI). s/p IVC filter 08/23. s/p multiple chest tube placements Sep 19-Oct 21. s/p LP 09/15. Patient has shown minimal improvement of cognitive function during the course of this hospitalization. Patient does not have any insurance and therefore cannot be placed in rehab/NH. Multiple conversations with regarding poor prognosis- he wishes to keep her full code. Palliative and pastoral care have been on board. Plan: Altered mental status/Encephalopathy- suspect anoxic encephalopathy - Code Blue 07/10 and 07/20 - Off sedation - Modafinil 50 mg PO daily - CT head (08/28/18): No hemorrhage or midline shift - MRI brain (09/08/18): No definite mass effect or suspicious extra axial collection. No evidence of acute or subacute brain infarction at this time. Borderline pattern of hydrocephalus. - LP 09/15/18: normal opening pressure - LDH 30, glucose 69, tot prot 67 - CSF Cx: no growth - Other CSF studies pending- called lab 11/01, they will contact [facility] for update - Neurology consulted (George/Ankit) Acute respiratory failure- s/p trach on vent, unable to wean - Tracheostomy 07/24/18, s/p bronchoscopy 08/23 - Patient had tolerated trach collars in early Aug 2018; however she has been on vent to trach since. Fi02: 40% - Bronchoscopy (08/23/18) by Dr. Lozada - Bronchial washings: Pseudomonas Aeruginosa - Fungal Cx: negative - Mycobacterial Cx: negative - Chest physiotherapy - Most recent CT chest (10/27/18): Large bilateral pleural effusions and associated consolidations. Trace pericardial effusion. Borderline cardiomegaly. Enlarged heterogeneous partially imaged thyroid gland. - Monitor CO2 - ABG on FiO2 40 (11/02/18): pH 7.34, pCO2 29, pO2 106 - Start Sodium bicarb 650 mg PEG BID - Duonebs Q4H [facility] - Pulmonary consulted (Neville) Distended abdomen, worsening- likely constipation, several enemas given, last BM 10/31 (small) - AXR (10/28/18): Nonspecific bowel gas pattern with relative paucity of bowel gas. - Repeat AXR (11/02/18): Normal bowel gas pattern. - Restart PEG tube feeds - Increase Reglan to 10 mg IV Q6H - Miralax PEG BID - Simethicone 80 mg PEG QID - Phosphate enema x4 - Dulcolax NV x1 - Lactulose NV x1 - Fleet enemas no efficacy yet, monitor and hold feeds Pleural effusions- s/p bilateral chest tubes - Multiple chest tubes and thoracenteses for effusions, most recent s/p bilateral chest tubes 10/27 - Pleural fluid from 10/13/18 - WBC 794, RBC 2083, tot cells 100, neutrophils 87% - Tot prot<3, LDH 145, glucose 146 - CT chest (10/27/18): Placment of 8.5 Gabonese pigtail drainage catheter within right and left pleural space - Most recent CXR (10/31/18): Status post bilateral chest tube placements. Marked reduction of bilateral pleural effusions, commensurate re-expansion of both lungs. - Repeat CXR 11/02: Worsening pulmonary edema - Discontinue IVF - IR consulted (Partha) - Pulmonology consulted (Neville) Thyroid disorder - Thyroid US (07/16/18): Heterogeneous thyroid echotexture. Numerous nodules as described above. Suggest percutaneous biopsy of the following suspicious nodules; 1.8 x 0.9 x 1.7 cm right lower pole nodule, 1.0 x 0.7 x 0.9 cm right upper pole lesion with intracystic vascular nodule, complex left upper pole nodule measuring 2.1 x 1.5 x 1.8 cm. - Note: Initial thyroid studies taken before amiodarone was given- this is NOT amiodarone induced - TSH <0.02 in 07/2018, 10/31/18 TSH 18.10 - Free T4 >3 in 07/2018, 10/31/2018 free T4 0.24 - Recheck TSH, free T4 on 11/08/18 - Methimazole to 10 mg PO Q8H- hold for 5 days (11/01-11/06/18) - Off Propranolol 5 mg PO TID due to hypotension - Endocrinology consulted (Irwin) Hypotension, improved, stable - Remains stable in 100s-120s/50s-60s - Monitor albumin, administer PRN doses - Midodrine 10 mg PEG TID - Start D51/2NS @ 50 Atrial fibrillation RVR - EKG (10/29/18): Afib HR 130 - Lopressor 2.5 mg IVP PRN - Cardiology consulted (Nolan) Deconditioning - Patient needs aggressive continued PT/OT- PT signed off as patient does not follow directions - Nursing and move patient OOB to chair - Social work note (08/09/18): patient is undocumented, has not health insurance, discharge planning will be at home with Septic Shock 2/2 Pneumonia and Urinary Tract Infection (VRE and Pseudomonas)- urinary retention - Off pressors (previously on 3) - Mild leukocytosis (12.4) - Afebrile since 10/21/18 - Procal 1.49 on 11/01/18, 0.66 on 10/21/18 - CXR (11/02/18): worsening pulmonary edema - Most recent blood cultures negative - Most recent urine cultures (10/21/18) +VRE/Pseudomonas, suspect patient likely colonized - Hernandes in place - Midline removed 11/01/18 - Flomax 0.4 mg PEG daily - Cefepime 1 g Q12H- started 10/27 - ID consulted (Vinod) Anemia 2/2 to Chronic Diseases +/- Dysfunctional uterine bleeding, stable - Stool occult blood negative - Iron normal, TIBC low, Iron saturation normal, Ferritin normal - B12, folate normal - Vaginal US: thickened endometrium - Transfused pRBC: 1 unit 07/22/18, 2 units 08/13/18, 1 unit 08/17/18, 1 unit 08/23/18 - OBGYN consulted (Gilberto)- no hysterectomy Apical thrombus - Echo (07/07/18) before cardiac arrest: EF 40-45% - Echo (07/10/19) after cardiac arrest: EF 40%, LV large apical hypokinesis, large 30x20 mm soft tissue apical sessile mass suggestive of thrombus - Echo (08/17/19): LV clot, no significant change - Too high risk for HUBERT - Previously on heparin gtt, Eliquis- stopped due to anemia and vaginal bleeding - ASA 81 mg PEG daily LLE Deep vein thrombosis s/p IVC filter - Venous Doppler (07/18/18): Acute thrombosis of the left common femoral and femoral veins with severe reduction of the venous return - Resolved on repeat imaging - Previously on heparin gtt, Eliquis- stopped due to anemia and vaginal bleeding - s/p IVC filter on 08/23/18 - Vasc surgery consulted (Vicky) Type 2 diabetes mellitus, chronic - A1c: 7.8 - Hypoglycemia protocol - Accuchecks Q6H - ISS Q6H Vtach- Code blue x2 (07/10/18) - Previously on amiodarone ggt - Cardiology consulted (Nolan) Acute kidney failure, resolved - Required dialysis early in admission before code blues - Monitor BUN, Cr Shock liver, resolved - Hepatitis panel negative - HIV negative - Monitor LFTs Ppx: VTE: SCDs GI: Protonix 40mg PEG Q12H PEG: Pulmocare goal rate 40 mL/hr- feeds restarted 2/2 * Lactobacillus 1 cap PEG Q12H * Multivitamin PEG daily * Vitamin C 1,000 PEG daily * Vitamin A&E Code status: full code- Palliative consulted Nasreen Villegas PGY1 <Saira Leahy V - Last Filed: 11/05/18 09:10> Objective - Vital Signs/Intake and Output Vital Signs (last 24 hours): Temp Pulse Resp BP Pulse Ox 97.2 F L 90 21 112/52 L 100 11/05/18 08:00 11/05/18 08:00 11/05/18 08:00 11/05/18 08:00 11/05/18 08:00 Intake and Output: 11/05/18 11/05/18 06:59 18:59 Intake Total 275 Output Total 1070 Balance -795 - Medications Medications: Current Medications Albuterol/Ipratropium (Duoneb 3 Mg/0.5 Mg (3 Ml) Ud) 3 ml INH RQ4 [facility] Last Admin: 11/05/18 07:58 Dose: 3 ml Ascorbic Acid (Vitamin C 500 Mg Tab) 1,000 mg NG DAILY [facility] Last Admin: 11/04/18 09:34 Dose: 1,000 mg Aspirin (Aspirin Chewable) 81 mg GT DAILY [facility] Last Admin: 11/04/18 09:34 Dose: 81 mg Dextrose (Dextrose 50% Inj) 0 ml IVP .STAT PRN; Protocol PRN Reason: Hypoglycemia Protocol Dextrose (Glutose 15) 0 gm PO .ONCE PRN; Protocol PRN Reason: Hypoglycemia Protocol Glucagon (Glucagen Diagnostic Kit) 0 mg IM .STAT PRN; Protocol PRN Reason: Hypoglycemia Protocol Cefepime HCl 1 gm/ Dextrose 50 mls @ 100 mls/hr IVPB Q12H [facility]; Protocol Last Admin: 11/05/18 08:35 Dose: 100 mls/hr Lactobacillus Acidophilus (Bacid Acidophilus) 1 cap PO BID [facility] Last Admin: 11/04/18 18:45 Dose: 1 cap Methimazole (Tapazole) 10 mg PO Q8 [facility] Last Admin: 11/01/18 05:57 Dose: 10 mg Metoclopramide HCl (Reglan) 10 mg IVP Q6H [facility] Last Admin: 11/05/18 03:57 Dose: 10 mg Midodrine (Proamatine) 10 mg PO TID [facility] Last Admin: 11/04/18 18:45 Dose: 10 mg Modafinil (Provigil) 50 mg PO DAILY [facility] Last Admin: 11/04/18 09:34 Dose: 50 mg Multivitamins (Hexavitamin) 1 tab PEG DAILY [facility] Last Admin: 11/04/18 09:34 Dose: 1 tab Pantoprazole Sodium (Protonix Susp) 40 mg GT Q12H [facility] Last Admin: 11/04/18 21:03 Dose: 40 mg Polyethylene Glycol (Miralax) 17 gm PO BID [facility] Last Admin: 11/04/18 18:45 Dose: Not Given Simethicone (Mylicon Chew Tab) 80 mg PO QID [facility] Last Admin: 11/04/18 21:02 Dose: 80 mg Sodium Bicarbonate (Sodium Bicarbonate Tab) 650 mg PO BID [facility] Last Admin: 11/04/18 18:45 Dose: 650 mg Tamsulosin HCl (Flomax) 0.4 mg PEG DAILY [facility] Last Admin: 11/04/18 09:34 Dose: 0.4 mg Vitamin A (Vitamin A & D Oint Ud Foilpak) 0.5 ea TOP DAILY [facility] Last Admin: 11/04/18 15:09 Dose: 0.5 ea - Labs Labs: 11/05/18 05:57 11/05/18 05:57 PT 13.3 SECONDS (9.7-12.2) H 10/23/18 06:05 INR 1.2 10/23/18 06:05 APTT 23 SECONDS (21-34) 10/02/18 06:10 Assessment and Plan (1) Septic shock Status: Acute (2) Acute respiratory failure Status: Acute (3) Urinary tract infection Status: Acute (4) Acute renal failure Status: Acute (5) Aspiration pneumonia Status: Acute (6) Diabetes mellitus Status: Chronic (7) Ventricular arrhythmia Status: Acute (8) Hyperthyroidism Status: Acute (9) Anemia Status: Acute (10) Prophylactic measure Status: Acute Attending/Attestation - Attestation I have personally seen and examined this patient.: Yes I have fully participated in the care of the patient.: Yes I have reviewed all pertinent clinical information, including history, physical exam and plan: Yes Notes (Text): Patient seen, examined, and case discussed with day-time resident. This is a 53-year-old female with a prolonged hospitalization for treatment for septic shock complicated by both pneumonia and urinary tract infections, anoxic encephalopathy likely secondary to 2 cardiac arrest during hospitalization, hyperthyroidism which had been controlled on methimazole, which is on hold until nov 05, shock liver which is now recovered, history of apical thrombus which is currently being treated with aspirin and is not on anticoagulation secondary to worsening heavy vaginal bleeding which required multiple blood transfusions during hospitalization, history of left lower extremity DVT which falling 1 month of anticoagulation has radiographically disappeared on repeat ultrasound and has now an IVC filter, as well as diabetes, vitamin D deficiency. CT chest on October 23, 2018 noted large bilateral pleural effusions with associated consolidations. Trace pericardial effusion. Borderline cardiomegaly. Enlarged heterogeneous partially imaged thyroid gland. Tracheostomy tube. Limited visualization of the noncontrast upper abdominal IVC filter. Bilateral renal cyst. Small perihepatic and perisplenic ascites. Pancreatic atrophy. Possible tiny gallstone. Indeterminate 13 mm left upper lobe nodule indeterminate. Patient under underwent chest tube placement with interventional radiology on October [address] placement of 8.5 Gabonese pigtail drain catheter within the right and left pleural space. Trach aspirate noted for Pseudomonas. Patient was placed on Maxipime since 10/27/18 per infectious disease. Pleural fluid shows no growth. Will need to monitor fluid output. Chest xray (11/02/18): worsening pulmonary edema. Stable position of support apparatus including tracheostomy device in bilateral pigtail catheters. Patient is noted to be incontinent of the urine has been straight cath when she does retain. Patient was on [address] way Hernandes since 10/05/17 evening with CBI to clean out urine which she is off. Procalcitonin is high: 1.49 in light of Pseudomonas pneumonia on 11/01/18 and UTI likely colonizer. Patient has been on Maxipime 1gm IV Q12H since 10/27/18. Patient remains without fever. White count normalized in today's blood work. Will repeat procalcitonin on 11/08/18. Also note patient did underwent a lumbar puncture on September 15 HSV-2 IgM antibody, VDRL, and the West Nile are still pending. Physical therapy had signed off on September 24 because patient is not a candidate because she cannot follow directions. Patient would be an ideal candidate for LTAC however she does not have insur ance, her is [place] from this [place] which limits her ability for services. The other thing is patient still remains trach to vent as well. Also to note patient does have sequential compressive stocking since the follow- up venous Doppler which did indicate that the clot had cleared.Patient does have noted muscle wasting. Wound care re-evaluated the patient on 10/05/18 for skin break down over the flexor surfaces over the knee. New recommendations were placed. Patient's midodrine increased to 10mg PO TID to increase blood pressure. Evening, 10/30/18 patient had an episode of atrial fib RVR which required Lopressor given by nighttime resident. We repeated thyroid studies with elevated TSH, Free T4 normal. We will f/u with endocrinology regarding dose adjustment of methiazole who reported hold the methizole for 5 days (start 11/01/18 until 11/05/18) and then resume 10mg POq8H, then recheck thyroid on Tuesday, Nov 08 Patient given dose of Albumin 11/01/18 to help improve blood pressure. Patient ordered for phosphate enema 10/31/18. patient restarted on tube feedings 10/30/18. patient had passed gas overnight but did not have a blood movement. patient placed on miralax and reglan to help promote bowel movement. Patient had a small bowel movement on 10/31/18 and is passing gas. Patient had abdominal xray to repeat which showed no obstruction. ABG is essentially normal. Patient's tube feedings restarted on 11/04/18. Patient had 2 bowel movements on 11/04/18. Patient remains neurologically the same. Patient remains s/p trach on vent. FiO2 on 40%. on Duoneb treatments. Patient is off mucoyst because secretions clog up the vent. Patient noted to have poor prognosis though she has survived many things during her hospitalization. Her who remains in high spirits hopes that she will recover and has been persistently at bedside every single day since being hospitalized in July.
[2018-11-05] MEDS: Albuterol-Ipratrop 3 mg / 0.5 (3 ml) UD INH SCH ×5 (03:45→19:29)
[2018-11-05 06:04] LABS: BASO # 0.1 K/uL (0.0-0.2); BASO % 0.6 % (0.0-2.0); EOS # 0.5 K/uL (0.0-0.7); EOS % 5.2 % (0.0-4.0); HEMOGLOBIN 9.4 g/dL (11.0-16.0); LYMPH # 1.6 K/uL (1.0-4.3); LYMPH % 17.8 % (20.0-40.0); MEAN CELL VOLUME 90.7 fL (81.0-99.0); MEAN CORPUSCULAR HEMOGLOBIN 29.6 pg (27.0-31.0); MEAN CORPUSCULAR HGB CONC 32.7 g/dL (33.0-37.0); MEAN PLATELET VOLUME 7.6 fL (7.2-11.7); MONO # 0.5 K/uL (0.0-0.8); MONO % 5.7 % (0.0-10.0); NEUT # 6.3 K/uL (1.8-7.0); NEUT % 70.7 % (50.0-75.0); NRBC % 0.1 % (0.0-2.0); RBC 3.19 Mil/uL (3.80-5.20); RED CELL DISTRIBUTION WIDTH 20.5 % (11.5-14.5); WHITE BLOOD COUNT 8.9 K/uL (4.8-10.8)
[2018-11-05 06:14] LABS: ALB/GLOB RATIO 0.7 (1.0-2.1); ALBUMIN 2.2 g/dL (3.5-5.0); ALT/SGPT 13 U/L (9-52); AST/SGOT 16 U/L (14-36); BLOOD UREA NITROGEN 16 mg/dL (7-17); CALCIUM 7.8 mg/dl (8.6-10.4); GFR NON-AFRICAN AMERICAN > 60
[2018-11-05] MEDS: Modafinil 50 MG TAB PO SCH (09:45)
[2018-11-05] MEDS: Multiple Vitamins Tab PEG SCH (09:45)
[2018-11-05] MEDS: POLYETHYLENE GLYCOL 3350 17 GM/Dose PACKET PO SCH ×2 (09:46→17:02)
[2018-11-05] MEDS: Vitamins A & D Oint UD Foilpak TOP SCH (09:46)
[2018-11-05] MEDS: Lactobacillus Acidophilus 500 MU Cap PO SCH ×2 (09:46→17:02)
[2018-11-05] MEDS: Pantoprazole 40 mg Susp UD GT SCH ×2 (09:49→21:51)
[2018-11-05] MEDS: Simethicone 80 mg Chewtab PO SCH ×4 (10:59→21:52)
--- NOTE | 2018-11-05 17:11 | CP.PCM.PN ---
Subjective - Date & Time of Evaluation Date of Evaluation: 11/05/18 Time of Evaluation: 09:00 - Subjective Subjective: AFEB ON VENT IN ICU BILAT CHEST TUBES Objective - Vital Signs/Intake and Output Vital Signs (last 24 hours): Temp Pulse Resp BP Pulse Ox 98.3 F 87 18 112/58 L 100 11/05/18 16:00 11/05/18 16:00 11/05/18 16:00 11/05/18 16:00 11/05/18 16:00 Intake and Output: 11/05/18 11/05/18 06:59 18:59 Intake Total 275 60 Output Total 1070 Balance -795 60 - Medications Medications: Current Medications Albuterol/Ipratropium (Duoneb 3 Mg/0.5 Mg (3 Ml) Ud) 3 ml INH RQ4 [facility] Last Admin: 11/05/18 15:57 Dose: 3 ml Ascorbic Acid (Vitamin C 500 Mg Tab) 1,000 mg NG DAILY [facility] Last Admin: 11/05/18 09:45 Dose: 1,000 mg Aspirin (Aspirin Chewable) 81 mg GT DAILY [facility] Last Admin: 11/05/18 09:49 Dose: 81 mg Dextrose (Dextrose 50% Inj) 0 ml IVP .STAT PRN; Protocol PRN Reason: Hypoglycemia Protocol Dextrose (Glutose 15) 0 gm PO .ONCE PRN; Protocol PRN Reason: Hypoglycemia Protocol Glucagon (Glucagen Diagnostic Kit) 0 mg IM .STAT PRN; Protocol PRN Reason: Hypoglycemia Protocol Cefepime HCl 1 gm/ Dextrose 50 mls @ 100 mls/hr IVPB Q12H [facility]; Protocol Last Admin: 11/05/18 08:35 Dose: 100 mls/hr Lactobacillus Acidophilus (Bacid Acidophilus) 1 cap PO BID [facility] Last Admin: 11/05/18 17:02 Dose: 1 cap Methimazole (Tapazole) 10 mg PO Q8 [facility] Last Admin: 11/01/18 05:57 Dose: 10 mg Metoclopramide HCl (Reglan) 10 mg IVP Q6H [facility] Last Admin: 11/05/18 15:24 Dose: 10 mg Midodrine (Proamatine) 10 mg PO TID [facility] Last Admin: 11/05/18 17:02 Dose: 10 mg Modafinil (Provigil) 50 mg PO DAILY [facility] Last Admin: 11/05/18 09:45 Dose: 50 mg Multivitamins (Hexavitamin) 1 tab PEG DAILY [facility] Last Admin: 11/05/18 09:45 Dose: 1 tab Pantoprazole Sodium (Protonix Susp) 40 mg GT Q12H [facility] Last Admin: 11/05/18 09:49 Dose: 40 mg Polyethylene Glycol (Miralax) 17 gm PO BID [facility] Last Admin: 11/05/18 17:02 Dose: 17 gm Simethicone (Mylicon Chew Tab) 80 mg PO QID [facility] Last Admin: 11/05/18 17:02 Dose: 80 mg Sodium Bicarbonate (Sodium Bicarbonate Tab) 650 mg PO BID [facility] Last Admin: 11/05/18 17:03 Dose: 650 mg Tamsulosin HCl (Flomax) 0.4 mg PEG DAILY [facility] Last Admin: 11/05/18 09:45 Dose: 0.4 mg Vitamin A (Vitamin A & D Oint Ud Foilpak) 0.5 ea TOP DAILY [facility] Last Admin: 11/05/18 09:46 Dose: 0.5 ea - Labs Labs: 11/05/18 05:57 11/05/18 05:57 PT 13.3 SECONDS (9.7-12.2) H 10/23/18 06:05 INR 1.2 10/23/18 06:05 APTT 23 SECONDS (21-34) 10/02/18 06:10 - Constitutional Appears: Confused, Cachectic, Chronically Ill - Head Exam Head Exam: NORMOCEPHALIC - Eye Exam Eye Exam: absent: Scleral icterus - ENT Exam ENT Exam: Mucous Membranes Dry - Neck Exam Neck Exam: absent: Lymphadenopathy - Respiratory Exam Respiratory Exam: Decreased Breath Sounds, Rhonchi - Cardiovascular Exam Cardiovascular Exam: REGULAR RHYTHM, +S1, +S2 - GI/Abdominal Exam GI & Abdominal Exam: Distended, Soft - Rectal Exam Rectal Exam: Deferred - Exam Exam: NORMAL INSPECTION - Extremities Exam Extremities Exam: absent: Pedal Edema - Back Exam Back Exam: absent: CVA tenderness (L), CVA tenderness (R) Assessment and Plan (1) NEHA (acute kidney injury) Status: Acute (2) Acute renal failure Status: Acute (3) Acute respiratory failure Status: Acute (4) Aspiration pneumonia Status: Acute (5) Septic shock Status: Acute (6) Urinary tract infection Status: Acute (7) Diabetes mellitus Status: Chronic (8) Anoxic brain damage Status: Acute - Assessment and Plan (Free Text) Assessment: CONT IV RX ORDERED
[2018-11-06] MEDS: Albuterol-Ipratrop 3 mg / 0.5 (3 ml) UD INH SCH ×6 (00:10→19:51)
[2018-11-06] MEDS: Pantoprazole 40 mg Susp UD GT SCH ×2 (09:02→21:42)
[2018-11-06] MEDS: Multiple Vitamins Tab PEG SCH (10:49)
[2018-11-06] MEDS: POLYETHYLENE GLYCOL 3350 17 GM/Dose PACKET PO SCH ×2 (10:49→17:28)
[2018-11-06] MEDS: Simethicone 80 mg Chewtab PO SCH ×4 (10:49→21:42)
[2018-11-06] MEDS: Vitamins A & D Oint UD Foilpak TOP SCH (10:50)
[2018-11-06] MEDS: Lactobacillus Acidophilus 500 MU Cap PO SCH ×2 (10:53→21:45)
[2018-11-06] MEDS: Modafinil 50 MG TAB PO SCH (10:54)
--- NOTE | 2018-11-06 10:57 | CP.PCM.PN ---
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 New onset bilateral upper ext swelling noted by and nursing. BM yesterday, resumed tube feeds tolerating well no acute events noted as per nursing. 12point ROS unavailable due to mental status Objective - Vital Signs/Intake and Output Vital Signs (last 24 hours): Temp Pulse Resp BP Pulse Ox 98.8 F 98 H 19 111/55 L 100 11/06/18 08:00 11/06/18 04:00 11/06/18 08:00 11/06/18 08:00 11/06/18 08:00 Intake and Output: 11/06/18 11/06/18 06:59 18:59 Intake Total 530 Output Total 700 Balance -170 - Medications Medications: Current Medications Albuterol/Ipratropium (Duoneb 3 Mg/0.5 Mg (3 Ml) Ud) 3 ml INH RQ4 MANOLO Last Admin: 11/06/18 07:50 Dose: 3 ml Ascorbic Acid (Vitamin C 500 Mg Tab) 1,000 mg NG DAILY [facility] Last Admin: 11/06/18 10:49 Dose: 1,000 mg Aspirin (Aspirin Chewable) 81 mg GT DAILY [facility] Last Admin: 11/06/18 10:49 Dose: 81 mg Dextrose (Dextrose 50% Inj) 0 ml IVP .STAT PRN; Protocol PRN Reason: Hypoglycemia Protocol Dextrose (Glutose 15) 0 gm PO .ONCE PRN; Protocol PRN Reason: Hypoglycemia Protocol Glucagon (Glucagen Diagnostic Kit) 0 mg IM .STAT PRN; Protocol PRN Reason: Hypoglycemia Protocol Cefepime HCl 1 gm/ Dextrose 50 mls @ 100 mls/hr IVPB Q12H MANOLO; Protocol Last Admin: 11/06/18 09:41 Dose: 100 mls/hr Lactobacillus Acidophilus (Bacid Acidophilus) 1 cap PO BID [facility]O Last Admin: 11/05/18 17:02 Dose: 1 cap Methimazole (Tapazole) 10 mg PO Q8 [facility]O Last Admin: 11/01/18 05:57 Dose: 10 mg Metoclopramide HCl (Reglan) 10 mg IVP Q6H [facility] Last Admin: 11/06/18 09:02 Dose: 10 mg Midodrine (Proamatine) 10 mg PO TID [facility] Last Admin: 11/05/18 17:02 Dose: 10 mg Modafinil (Provigil) 50 mg PO DAILY [facility] Last Admin: 11/05/18 09:45 Dose: 50 mg Multivitamins (Hexavitamin) 1 tab PEG DAILY [facility] Last Admin: 11/06/18 10:49 Dose: 1 tab Pantoprazole Sodium (Protonix Susp) 40 mg GT Q12H [facility] Last Admin: 11/06/18 09:02 Dose: 40 mg Polyethylene Glycol (Miralax) 17 gm PO BID [facility] Last Admin: 11/06/18 10:49 Dose: 17 gm Simethicone (Mylicon Chew Tab) 80 mg PO QID [facility] Last Admin: 11/06/18 10:49 Dose: 80 mg Sodium Bicarbonate (Sodium Bicarbonate Tab) 650 mg PO BID [facility] Last Admin: 11/06/18 10:49 Dose: 650 mg Tamsulosin HCl (Flomax) 0.4 mg PEG DAILY [facility] Last Admin: 11/06/18 10:49 Dose: 0.4 mg Vitamin A (Vitamin A & D Oint Ud Foilpak) 0.5 ea TOP DAILY [facility] Last Admin: 11/06/18 10:50 Dose: 0.5 ea - Labs Labs: 11/05/18 05:57 11/05/18 05:57 PT 13.3 SECONDS (9.7-12.2) H 10/23/18 06:05 INR 1.2 10/23/18 06:05 APTT 23 SECONDS (21-34) 10/02/18 06:10 - Additional Findings Additional findings: - Constitutional Appears: No Acute Distress, Chronically Ill - Head Exam Head Exam: ATRAUMATIC, NORMAL INSPECTION - Eye Exam Eye Exam: EOMI, PERRL - ENT Exam ENT Exam: Mucous Membranes Moist - Respiratory Exam Respiratory Exam: absent: Respiratory Distress Additional comments: Trach on vent- FiO2 40 - Cardiovascular Exam Cardiovascular Exam: RRR - GI/Abdominal Exam GI & Abdominal Exam: Distended, Soft, Normal Bowel Sounds PEG- feeds restarted - Exam Additional comments: Hernandes output 580 mL last 24 hrs - Extremities Exam Additional comments: Diffuse atrophy/muscle wasting - Neurological Exam Neurological Exam: Alert, Altered, Awake. absent: Normal Gait, Oriented x3 - Psychiatric Exam Additional comments: Nonverbal - Skin Skin Exam: Dry, Intact, Normal Color, Warm Assessment and Plan - Assessment and Plan (Free Text) Assessment: This is a 52 yo female originally admitted to the ICU for septic shock 2/2 to PNA/UTI worsened by cardiac arrest and anoxic brain injury. Patient foudn to have apical thrombus in heart. Patient is s/p trach and PEG. Patient still unable to be weaned off vent. She has had multiple complications, including DVT and infections (PNA, UTI). s/p IVC filter 08/23. s/p multiple chest tube placements Sep 19-Oct 21. s/p LP 09/15. Patient has shown minimal improvement of cognitive function during the course of this hospitalization. Patient does not have any insurance and therefore cannot be placed in rehab/NH. Multiple conversations with regarding poor prognosis- he wishes to keep her full code. Palliative and pastoral care have been on board. Plan: Altered mental status/Encephalopathy- suspect anoxic encephalopathy - Code Blue 07/10 and 07/20 - Off sedation - Modafinil 50 mg PO daily - CT head (08/28/18): No hemorrhage or midline shift - MRI brain (09/08/18): No definite mass effect or suspicious extra axial co llection. No evidence of acute or subacute brain infarction at this time. Borderline pattern of hydrocephalus. - LP 09/15/18: normal opening pressure - LDH 30, glucose 69, tot prot 67 - CSF Cx: no growth - Other CSF studies pending- called lab 11/01, they will contact [facility] for update - Neurology consulted (George/Ankit) Acute respiratory failure- s/p trach on vent, unable to wean - Tracheostomy 07/24/18, s/p bronchoscopy 08/23 - Patient had tolerated trach collars in early Aug 2018; however she has been on vent to trach since. Fi02: 40% - Bronchoscopy (08/23/18) by Dr. Lozada - Bronchial washings: Pseudomonas Aeruginosa - Fungal Cx: negative - Mycobacterial Cx: negative - Chest physiotherapy - Most recent CT chest (10/27/18): Large bilateral pleural effusions and associated consolidations. Trace pericardial effusion. Borderline cardiomegaly. Enlarged heterogeneous partially imaged thyroid gland. - Monitor CO2 - ABG on FiO2 40 (11/02/18): pH 7.34, pCO2 29, pO2 106 - Start Sodium bicarb 650 mg PEG BID - Duonebs Q4H MNAOLO - Pulmonary consulted (Neville) Distended abdomen- resolving BM yesterday - AXR (10/28/18): Nonspecific bowel gas pattern with relative paucity of bowel gas. - Repeat AXR (11/02/18): Normal bowel gas pattern. - PEG tube feeds - Increase Reglan to 10 mg IV Q6H - Miralax PEG BID - Simethicone 80 mg PEG QID - Phosphate enema x4 - Dulcolax MA x1 - Lactulose MA x1 - Fleet enemas no efficacy yet, monitor and hold feeds Upper Extremity swelling bilateral - f/u upper ext dopplers : - holding anticoags due to vaginal bleeding Pleural effusions- s/p bilateral chest tubes - Multiple chest tubes and thoracenteses for effusions, most recent s/p bilateral chest tubes 10/27 - Pleural fluid from 10/13/18 - WBC 794, RBC 2083, tot cells 100, neutrophils 87% - Tot prot<3, LDH 145, glucose 146 - CT chest (10/27/18): Placment of 8.5 Kiswahili pigtail drainage catheter within right and left pleural space - Most recent CXR (10/31/18): Status post bilateral chest tube placements. Marked reduction of bilateral pleural effusions, commensurate re-expansion of both lungs. - Repeat CXR 11/02: Worsening pulmonary edema - Discontinue IVF - IR consulted (Pratha) - Pulmonology consulted (Neivlle) Thyroid disorder - Thyroid US (07/16/18): Heterogeneous thyroid echotexture. Numerous nodules as described above. Suggest percutaneous biopsy of the following suspicious nodules; 1.8 x 0.9 x 1.7 cm right lower pole nodule, 1.0 x 0.7 x 0.9 cm right upper pole lesion with intracystic vascular nodule, complex left upper pole nodule measuring 2.1 x 1.5 x 1.8 cm. - Note: Initial thyroid studies taken before amiodarone was given- this is NOT amiodarone induced - TSH <0.02 in 07/2018, 10/31/18 TSH 18.10 - Free T4 >3 in 07/2018, 10/31/2018 free T4 0.24 - Recheck TSH, free T4 on 11/08/18 - Methimazole to 10 mg PO Q8H- hold for 5 days (11/01-11/06/18) - Off Propranolol 5 mg PO TID due to hypotension - Endocrinology consulted (Irwin) Hypotension, improved, stable - Remains stable in 100s-120s/50s-60s - Monitor albumin, administer PRN doses - Midodrine 10 mg PEG TID - Start D51/2NS @ 50 Atrial fibrillation RVR - EKG (10/29/18): Afib HR 130 - Lopressor 2.5 mg IVP PRN - Cardiology consulted (Nolan) Deconditioning - Patient needs aggressive continued PT/OT- PT signed off as patient does not follow directions - Nursing and move patient OOB to chair - Social work note (08/09/18): patient is undocumented, has not health insurance, discharge planning will be at home with Septic Shock 2/2 Pneumonia and Urinary Tract Infection (VRE and Pseudomonas)- urinary retention - Off pressors (previously on 3) - Mild leukocytosis (12.4) - Afebrile since 10/21/18 - Procal 1.49 on 11/01/18, 0.66 on 10/21/18 - CXR (11/02/18): worsening pulmonary edema - Most recent blood cultures negative - Most recent urine cultures (10/21/18) +VRE/Pseudomonas, suspect patient likely colonized - Hernandes in place - Midline removed 11/01/18 - Flomax 0.4 mg PEG daily - Cefepime 1 g Q12H- started 10/27 - ID consulted (Vinod) Anemia 2/2 to Chronic Diseases +/- Dysfunctional uterine bleeding, stable - Stool occult blood negative - Iron normal, TIBC low, Iron saturation normal, Ferritin normal - B12, folate normal - Vaginal US: thickened endometrium - Transfused pRBC: 1 unit 07/22/18, 2 units 08/13/18, 1 unit 08/17/18, 1 unit 08/23/18 - OBGYN consulted (Gilberto)- no hysterectomy Apical thrombus - Echo (07/07/18) before cardiac arrest: EF 40-45% - Echo (07/10/19) after cardiac arrest: EF 40%, LV large apical hypokinesis, large 30x20 mm soft tissue apical sessile mass suggestive of thrombus - Echo (08/17/19): LV clot, no significant change - Too high risk for HUBERT - Previously on heparin gtt, Eliquis- stopped due to anemia and vaginal bleeding - ASA 81 mg PEG daily LLE Deep vein thrombosis s/p IVC filter - Venous Doppler (07/18/18): Acute thrombosis of the left common femoral and femoral veins with severe reduction of the venous return - Resolved on repeat imaging - Previously on heparin gtt, Eliquis- stopped due to anemia and vaginal bleeding - s/p IVC filter on 08/23/18 - Vasc surgery consulted (Vicky) Type 2 diabetes mellitus, chronic - A1c: 7.8 - Hypoglycemia protocol - Accuchecks Q6H - ISS Q6H Vtach- Code blue x2 (07/10/18) - Previously on amiodarone ggt - Cardiology consulted (Nolan) Acute kidney failure, resolved - Required dialysis early in admission before code blues - Monitor BUN, Cr Shock liver, resolved - Hepatitis panel negative - HIV negative - Monitor LFTs Ppx: VTE: SCDs GI: Protonix 40mg PEG Q12H PEG: Pulmocare goal rate 40 mL/hr- feeds restarted 2/2 * Lactobacillus 1 cap PEG Q12H * Multivitamin PEG daily * Vitamin C 1,000 PEG daily * Vitamin A&E Code status: full code- Palliative consulted Nasreen Villegas PGY1 <[place] - Last Filed: 11/12/18 17:32> Objective - Vital Signs/Intake and Output Vital Signs (last 24 hours): Temp Pulse Resp BP Pulse Ox 97.8 F 96 H 20 112/68 98 11/12/18 16:31 11/12/18 16:31 11/12/18 16:31 11/12/18 16:31 11/12/18 16:31 Intake and Output: 11/12/18 11/12/18 06:59 18:59 Intake Total 1092 Output Total 500 Balance 592 - Medications Medications: Current Medications Ascorbic Acid (Vitamin C 500 Mg Tab) 1,000 mg NG DAILY [facility] Last Admin: 11/12/18 09:56 Dose: 1,000 mg Aspirin (Aspirin Chewable) 81 mg GT DAILY [facility] Last Admin: 11/12/18 09:57 Dose: 81 mg Dextrose (Dextrose 50% Inj) 0 ml IVP .STAT PRN; Protocol PRN Reason: Hypoglycemia Protocol Dextrose (Glutose 15) 0 gm PO .ONCE PRN; Protocol PRN Reason: Hypoglycemia Protocol Glucagon (Glucagen Diagnostic Kit) 0 mg IM .STAT PRN; Protocol PRN Reason: Hypoglycemia Protocol Cefepime HCl 1 gm/ Dextrose 50 mls @ 100 mls/hr IVPB Q12H [facility]; Protocol Last Admin: 11/12/18 09:55 Dose: 100 mls/hr Lactobacillus Acidophilus (Lactobacillus) 1 cap PO BID [facility] Last Admin: 11/12/18 09:57 Dose: 1 cap Methimazole (Tapazole) 10 mg PO Q8 [facility] Last Admin: 11/12/18 05:46 Dose: 10 mg Metoclopramide HCl (Reglan) 10 mg IVP Q6H [facility] Last Admin: 11/12/18 09:57 Dose: 10 mg Midodrine (Proamatine) 10 mg PO TID [facility] Last Admin: 11/12/18 10:01 Dose: 10 mg Modafinil (Provigil) 50 mg PO DAILY [facility] Last Admin: 11/12/18 09:57 Dose: 50 mg Multivitamins (Hexavitamin) 1 tab PEG DAILY [facility] Last Admin: 11/12/18 09:56 Dose: 1 tab Pantoprazole Sodium (Protonix Susp) 40 mg GT Q12H [facility] Last Admin: 11/12/18 09:56 Dose: 40 mg Polyethylene Glycol (Miralax) 17 gm PO BID [facility] Last Admin: 11/12/18 14:10 Dose: 17 gm Simethicone (Mylicon Chew Tab) 80 mg PO QID [facility] Last Admin: 11/12/18 14:10 Dose: 80 mg Sodium Bicarbonate (Sodium Bicarbonate Tab) 650 mg PO BID [facility] Last Admin: 11/12/18 09:57 Dose: 650 mg Tamsulosin HCl (Flomax) 0.4 mg PEG DAILY [facility] Last Admin: 11/12/18 09:57 Dose: 0.4 mg Vitamin A (Vitamin A & D Oint Ud Foilpak) 0.5 ea TOP DAILY [facility] Last Admin: 11/12/18 09:56 Dose: 0.5 ea - Labs Labs: 11/11/18 07:02 11/11/18 07:02 PT 13.3 SECONDS (9.7-12.2) H 10/23/18 06:05 INR 1.2 10/23/18 06:05 APTT 23 SECONDS (21-34) 10/02/18 06:10 Attending/Attestation - Attestation I have personally seen and examined this patient.: Yes I have fully participated in the care of the patient.: Yes I have reviewed all pertinent clinical information, including history, physical exam and plan: Yes Notes (Text): 11/12/18 17:32 This is a late entry. Care of this patient was gone over with resident Dr. Villegas. [place] D.O.
[2018-11-07] MEDS: Albuterol-Ipratrop 3 mg / 0.5 (3 ml) UD INH SCH ×5 (00:18→16:00)
[2018-11-07 06:31] LABS: BASO % 0.3 % (0.0-2.0); EOS # 0.4 K/uL (0.0-0.7); EOS % 4.4 % (0.0-4.0); HEMOGLOBIN 8.1 g/dL (11.0-16.0); LYMPH # 1.1 K/uL (1.0-4.3); LYMPH % 13.5 % (20.0-40.0); MEAN CELL VOLUME 90.5 fL (81.0-99.0); MEAN CORPUSCULAR HEMOGLOBIN 30.3 pg (27.0-31.0); MEAN CORPUSCULAR HGB CONC 33.5 g/dL (33.0-37.0); MEAN PLATELET VOLUME 7.6 fL (7.2-11.7); MONO # 0.4 K/uL (0.0-0.8); NEUT # 6.2 K/uL (1.8-7.0); NEUT % 76.8 % (50.0-75.0); RBC 2.68 Mil/uL (3.80-5.20); RED CELL DISTRIBUTION WIDTH 21.3 % (11.5-14.5); WHITE BLOOD COUNT 8.1 K/uL (4.8-10.8)
[2018-11-07 06:52] LABS: ALB/GLOB RATIO 0.7 (1.0-2.1); ALBUMIN 1.7 g/dL (3.5-5.0); ALT/SGPT 12 U/L (9-52); AST/SGOT 21 U/L (14-36); BLOOD UREA NITROGEN 17 mg/dL (7-17); CALCIUM 6.1 mg/dl (8.6-10.4); GFR NON-AFRICAN AMERICAN > 60
--- NOTE | 2018-11-07 07:53 | CP.PCM.PN ---
<Bhanu Villegas - Last Filed: 11/07/18 16:58> Subjective - Date & Time of Evaluation Date of Evaluation: 11/07/18 Time of Evaluation: 07:52 - Subjective Subjective: HOSPITALIST SERVICE Pt seen and examined at bedside, no acute events overnight as per nursing, still trached and peg, no change in mental status. Patient had a bowel movement this morning. Objective - Vital Signs/Intake and Output Vital Signs (last 24 hours): Temp Pulse Resp BP Pulse Ox 98.7 F 84 18 110/54 L 100 11/07/18 04:00 11/07/18 04:00 11/07/18 04:00 11/07/18 04:00 11/07/18 04:00 Intake and Output: 11/07/18 11/07/18 06:59 18:59 Intake Total 630 Output Total 950 Balance -320 - Medications Medications: Current Medications Albuterol/Ipratropium (Duoneb 3 Mg/0.5 Mg (3 Ml) Ud) 3 ml INH RQ4 [facility] Last Admin: 11/07/18 03:07 Dose: 3 ml Ascorbic Acid (Vitamin C 500 Mg Tab) 1,000 mg NG DAILY [facility] Last Admin: 11/06/18 10:49 Dose: 1,000 mg Aspirin (Aspirin Chewable) 81 mg GT DAILY [facility] Last Admin: 11/06/18 10:49 Dose: 81 mg Dextrose (Dextrose 50% Inj) 0 ml IVP .STAT PRN; Protocol PRN Reason: Hypoglycemia Protocol Dextrose (Glutose 15) 0 gm PO .ONCE PRN; Protocol PRN Reason: Hypoglycemia Protocol Glucagon (Glucagen Diagnostic Kit) 0 mg IM .STAT PRN; Protocol PRN Reason: Hypoglycemia Protocol Cefepime HCl 1 gm/ Dextrose 50 mls @ 100 mls/hr IVPB Q12H [facility]; Protocol Last Admin: 11/06/18 21:42 Dose: 100 mls/hr Lactobacillus Acidophilus (Bacid Acidophilus) 1 cap PO BID [facility] Last Admin: 11/06/18 21:45 Dose: 1 cap Methimazole (Tapazole) 10 mg PO Q8 [facility] Last Admin: 11/07/18 05:52 Dose: 10 mg Metoclopramide HCl (Reglan) 10 mg IVP Q6H [facility] Last Admin: 11/07/18 03:30 Dose: Not Given Midodrine (Proamatine) 10 mg PO TID [facility] Last Admin: 11/06/18 17:30 Dose: 10 mg Modafinil (Provigil) 50 mg PO DAILY [facility] Last Admin: 11/06/18 10:54 Dose: 50 mg Multivitamins (Hexavitamin) 1 tab PEG DAILY [facility] Last Admin: 11/06/18 10:49 Dose: 1 tab Pantoprazole Sodium (Protonix Susp) 40 mg GT Q12H [facility] Last Admin: 11/06/18 21:42 Dose: 40 mg Polyethylene Glycol (Miralax) 17 gm PO BID [facility] Last Admin: 11/06/18 17:28 Dose: 17 gm Simethicone (Mylicon Chew Tab) 80 mg PO QID [facility] Last Admin: 11/06/18 21:42 Dose: 80 mg Sodium Bicarbonate (Sodium Bicarbonate Tab) 650 mg PO BID [facility] Last Admin: 11/06/18 17:28 Dose: 650 mg Tamsulosin HCl (Flomax) 0.4 mg PEG DAILY [facility] Last Admin: 11/06/18 10:49 Dose: 0.4 mg Vitamin A (Vitamin A & D Oint Ud Foilpak) 0.5 ea TOP DAILY [facility] Last Admin: 11/06/18 10:50 Dose: 0.5 ea - Labs Labs: 11/07/18 06:19 11/07/18 06:19 PT 13.3 SECONDS (9.7-12.2) H 10/23/18 06:05 INR 1.2 10/23/18 06:05 APTT 23 SECONDS (21-34) 10/02/18 06:10 - Constitutional Appears: No Acute Distress, Chronically Ill - Head Exam Head Exam: ATRAUMATIC, NORMAL INSPECTION - Eye Exam Eye Exam: EOMI, PERRL - ENT Exam ENT Exam: Mucous Membranes Moist - Respiratory Exam Respiratory Exam: absent: Respiratory Distress Additional comments: Trach on vent - FiO2 40 - Cardiovascular Exam Cardiovascular Exam: REGULAR RHYTHM, +S1, +S2 - GI/Abdominal Exam GI & Abdominal Exam: Distended, Soft, Normal Bowel Sounds Additional comments: PEG - feeds restarted - Extremities Exam Additional comments: Diffuse atrophy/muscle wasting - Neurological Exam Neurological Exam: Alert, Awake. absent: Normal Gait, Oriented x3 Assessment and Plan - Assessment and Plan (Free Text) Assessment: This is a 52 yo female originally admitted to the ICU for septic shock 2/ to PNA/UTI worsened by cardiac arrest and anoxic brain injury. Patient found to have apical thrombus in heart. Patient is s/p trach and PEG. Patient still unable to be weaned off vent. She has had multiple complications, including DVT and infections (PNA, UTI). s/p IVC filter 08/23. s/p multiple chest tube placements Sep 19-Oct 21. s/p LP 09/15. Patient has shown minimal improvement of cognitive function during the course of this hospitalization. Patient does not have any insurance and therefore cannot be placed in rehab/NH. Multiple conversations with regarding poor prognosis- he wishes to keep her full code. Palliative and pastoral care have been on board. Plan: Altered mental status/Encephalopathy- suspect anoxic encephalopathy - Code Blue 07/10 and 07/20 - Off sedation - Modafinil 50 mg PO daily - CT head (08/28/18): No hemorrhage or midline shift - MRI brain (09/08/18): No definite mass effect or suspicious extra axial collection. No evidence of acute or subacute brain infarction at this time. Borderline pattern of hydrocephalus. - LP 09/15/18: normal opening pressure - LDH 30, glucose 69, tot prot 67 - CSF Cx: no growth - Other CSF studies pending- called lab 11/01, they will contact [facility] for update - Neurology consulted (George/Ankit) Acute respiratory failure- s/p trach on vent, unable to wean - Tracheostomy 07/24/18, s/p bronchoscopy 08/23 - Patient had tolerated trach collars in early Aug 2018; however she has been on vent to trach since. Fi02: 40% - Bronchoscopy (08/23/18) by Dr. Lozada - Bronchial washings: Pseudomonas Aeruginosa - Fungal Cx: negative - Mycobacterial Cx: negative - Chest physiotherapy - Most recent CT chest (10/27/18): Large bilateral pleural effusions and associated consolidations. Trace pericardial effusion. Borderline cardiomegaly. Enlarged heterogeneous partially imaged thyroid gland. - Monitor CO2 - ABG on FiO2 40 (11/02/18): pH 7.34, pCO2 29, pO2 106 - Start Sodium bicarb 650 mg PEG BID - Duonebs Q4H [facility] - Pulmonary consulted (Neville) Distended abdomen- resolving BM yesterday - AXR (10/28/18): Nonspecific bowel gas pattern with relative paucity of bowel gas. - Repeat AXR (11/02/18): Normal bowel gas pattern. - PEG tube feeds - Increase Reglan to 10 mg IV Q6H - Miralax PEG BID - Simethicone 80 mg PEG QID - Phosphate enema x4 - Dulcolax AZ x1 - Lactulose AZ x1 - Fleet enemas no efficacy yet, monitor and hold feeds Upper Extremity swelling bilateral - f/u upper ext dopplers : neg - holding anticoags due to vaginal bleeding Pleural effusions- s/p bilateral chest tubes - Multiple chest tubes and thoracenteses for effusions, most recent s/p bilateral chest tubes 10/27 - Pleural fluid from 10/13/18 - WBC 794, RBC 2083, tot cells 100, neutrophils 87% - Tot prot<3, LDH 145, glucose 146 - CT chest (10/27/18): Placment of 8.5 Polish pigtail drainage catheter within right and left pleural space - Most recent CXR (10/31/18): Status post bilateral chest tube placements. Marked reduction of bilateral pleural effusions, commensurate re-expansion of both lungs. - Repeat CXR 11/02: Worsening pulmonary edema - Discontinue IVF - IR consulted (Partha) - Pulmonology consulted (Neville) Thyroid disorder - Thyroid US (07/16/18): Heterogeneous thyroid echotexture. Numerous nodules as described above. Suggest percutaneous biopsy of the following suspicious nodules; 1.8 x 0.9 x 1.7 cm right lower pole nodule, 1.0 x 0.7 x 0.9 cm right upper pole lesion with intracystic vascular nodule, complex left upper pole nodule measuring 2.1 x 1.5 x 1.8 cm. - Note: Initial thyroid studies taken before amiodarone was given- this is NOT amiodarone induced - TSH <0.02 in 07/2018, 10/31/18 TSH 18.10 - Free T4 >3 in 07/2018, 10/31/2018 free T4 0.24 - Recheck TSH, free T4 on 11/08/18 - Methimazole to 10 mg PO Q8H- hold for 5 days (11/01-11/06/18) - Off Propranolol 5 mg PO TID due to hypotension - Endocrinology consulted (Irwin) Hypotension, improved, stable - Remains stable in 100s-120s/50s-60s - Monitor albumin, administer PRN doses - Midodrine 10 mg PEG TID - Start D51/2NS @ 50 Atrial fibrillation RVR - EKG (10/29/18): Afib HR 130 - Lopressor 2.5 mg IVP PRN - Cardiology consulted (Nolan) Deconditioning - Patient needs aggressive continued PT/OT- PT signed off as patient does not follow directions - Nursing and move patient OOB to chair - Social work note (08/09/18): patient is undocumented, has not health insurance, discharge planning will be at home with Septic Shock 2/2 Pneumonia and Urinary Tract Infection (VRE and Pseudomonas)- urinary retention - Off pressors (previously on 3) - Mild leukocytosis (12.4) - Afebrile since 10/21/18 - Procal 1.49 on 11/01/18, 0.66 on 10/21/18 - CXR (11/02/18): worsening pulmonary edema - Most recent blood cultures negative - Most recent urine cultures (10/21/18) +VRE/Pseudomonas, suspect patient likely colonized - Hernandes in place - Midline removed 11/01/18 - Flomax 0.4 mg PEG daily - Cefepime 1 g Q12H- started 10/27 - ID consulted (Vinod) Anemia 2/2 to Chronic Diseases +/- Dysfunctional uterine bleeding, stable - Stool occult blood negative - Iron normal, TIBC low, Iron saturation normal, Ferritin normal - B12, folate normal - Vaginal US: thickened endometrium - Transfused pRBC: 1 unit 07/22/18, 2 units 08/13/18, 1 unit 08/17/18, 1 unit 08/23/18 - OBGYN consulted (Gilberto)- no hysterectomy Apical thrombus - Echo (07/07/18) before cardiac arrest: EF 40-45% - Echo (07/10/19) after cardiac arrest: EF 40%, LV large apical hypokinesis, large 30x20 mm soft tissue apical sessile mass suggestive of thrombus - Echo (08/17/19): LV clot, no significant change - Too high risk for HUBERT - Previously on heparin gtt, Eliquis- stopped due to anemia and vaginal bleeding - ASA 81 mg PEG daily LLE Deep vein thrombosis s/p IVC filter - Venous Doppler (07/18/18): Acute thrombosis of the left common femoral and femoral veins with severe reduction of the venous return - Resolved on repeat imaging - Previously on heparin gtt, Eliquis- stopped due to anemia and vaginal bleeding - s/p IVC filter on 08/23/18 - Vasc surgery consulted (Vicky) Type 2 diabetes mellitus, chronic - A1c: 7.8 - Hypoglycemia protocol - Accuchecks Q6H - ISS Q6H Vtach- Code blue x2 (07/10/18) - Previously on amiodarone ggt - Cardiology consulted (Nolan) Acute kidney failure, resolved - Required dialysis early in admission before code blues - Monitor BUN, Cr Shock liver, resolved - Hepatitis panel negative - HIV negative - Monitor LFTs Ppx: VTE: SCDs GI: Protonix 40mg PEG Q12H PEG: Pulmocare goal rate 40 mL/hr- feeds restarted 2/ * Lactobacillus 1 cap PEG Q12H * Multivitamin PEG daily * Vitamin C 1,000 PEG daily * Vitamin A&E Code status: full code- Palliative consulted Nasreen Villegas PGY1 <[place] - Last Filed: 11/12/18 17:32> Objective - Vital Signs/Intake and Output Vital Signs (last 24 hours): Temp Pulse Resp BP Pulse Ox 97.8 F 96 H 20 112/68 98 11/12/18 16:31 11/12/18 16:31 11/12/18 16:31 11/12/18 16:31 11/12/18 16:31 Intake and Output: 11/12/18 11/12/18 06:59 18:59 Intake Total 1092 Output Total 500 Balance 592 - Medications Medications: Current Medications Ascorbic Acid (Vitamin C 500 Mg Tab) 1,000 mg NG DAILY [facility] Last Admin: 11/12/18 09:56 Dose: 1,000 mg Aspirin (Aspirin Chewable) 81 mg GT DAILY [facility] Last Admin: 11/12/18 09:57 Dose: 81 mg Dextrose (Dextrose 50% Inj) 0 ml IVP .STAT PRN; Protocol PRN Reason: Hypoglycemia Protocol Dextrose (Glutose 15) 0 gm PO .ONCE PRN; Protocol PRN Reason: Hypoglycemia Protocol Glucagon (Glucagen Diagnostic Kit) 0 mg IM .STAT PRN; Protocol PRN Reason: Hypoglycemia Protocol Cefepime HCl 1 gm/ Dextrose 50 mls @ 100 mls/hr IVPB Q12H [facility]; Protocol Last Admin: 11/12/18 09:55 Dose: 100 mls/hr Lactobacillus Acidophilus (Lactobacillus) 1 cap PO BID [facility] Last Admin: 11/12/18 09:57 Dose: 1 cap Methimazole (Tapazole) 10 mg PO Q8 [facility] Last Admin: 11/12/18 05:46 Dose: 10 mg Metoclopramide HCl (Reglan) 10 mg IVP Q6H [facility] Last Admin: 11/12/18 09:57 Dose: 10 mg Midodrine (Proamatine) 10 mg PO TID [facility] Last Admin: 11/12/18 10:01 Dose: 10 mg Modafinil (Provigil) 50 mg PO DAILY [facility] Last Admin: 11/12/18 09:57 Dose: 50 mg Multivitamins (Hexavitamin) 1 tab PEG DAILY [facility] Last Admin: 11/12/18 09:56 Dose: 1 tab Pantoprazole Sodium (Protonix Susp) 40 mg GT Q12H [facility] Last Admin: 11/12/18 09:56 Dose: 40 mg Polyethylene Glycol (Miralax) 17 gm PO BID [facility] Last Admin: 11/12/18 14:10 Dose: 17 gm Simethicone (Mylicon Chew Tab) 80 mg PO QID [facility] Last Admin: 11/12/18 14:10 Dose: 80 mg Sodium Bicarbonate (Sodium Bicarbonate Tab) 650 mg PO BID [facility] Last Admin: 11/12/18 09:57 Dose: 650 mg Tamsulosin HCl (Flomax) 0.4 mg PEG DAILY [facility] Last Admin: 11/12/18 09:57 Dose: 0.4 mg Vitamin A (Vitamin A & D Oint Ud Foilpak) 0.5 ea TOP DAILY [facility] Last Admin: 11/12/18 09:56 Dose: 0.5 ea - Labs Labs: 11/11/18 07:02 11/11/18 07:02 PT 13.3 SECONDS (9.7-12.2) H 10/23/18 06:05 INR 1.2 10/23/18 06:05 APTT 23 SECONDS (21-34) 10/02/18 06:10 Attending/Attestation - Attestation I have personally seen and examined this patient.: Yes I have fully participated in the care of the patient.: Yes I have reviewed all pertinent clinical information, including history, physical exam and plan: Yes Notes (Text): 11/12/18 17:32 This is a late entry. Care of this patient was gone over with resident Dr. Villegas. [place] D.O.
[2018-11-07] MEDS: Pantoprazole 40 mg Susp UD GT SCH ×2 (09:57→21:44)
[2018-11-07] MEDS: Vitamins A & D Oint UD Foilpak TOP SCH (09:57)
[2018-11-07] MEDS: POLYETHYLENE GLYCOL 3350 17 GM/Dose PACKET PO SCH ×2 (09:58→18:17)
[2018-11-07] MEDS: Multiple Vitamins Tab PEG SCH (09:58)
[2018-11-07] MEDS: Simethicone 80 mg Chewtab PO SCH ×4 (09:58→21:43)
[2018-11-07] MEDS: Modafinil 50 MG TAB PO SCH (10:01)
--- NOTE | 2018-11-07 10:38 | CP.PCM.PN ---
Subjective - Date & Time of Evaluation Date of Evaluation: 11/07/18 Time of Evaluation: 09:00 - Subjective Subjective: no changes vented via trach chest tubes in place Objective - Vital Signs/Intake and Output Vital Signs (last 24 hours): Temp Pulse Resp BP Pulse Ox 98.7 F 84 18 110/54 L 100 11/07/18 04:00 11/07/18 04:00 11/07/18 04:00 11/07/18 04:00 11/07/18 04:00 Intake and Output: 11/07/18 11/07/18 06:59 18:59 Intake Total 630 Output Total 950 Balance -320 - Medications Medications: Current Medications Albuterol/Ipratropium (Duoneb 3 Mg/0.5 Mg (3 Ml) Ud) 3 ml INH RQ4 [facility] Last Admin: 11/07/18 07:50 Dose: 3 ml Ascorbic Acid (Vitamin C 500 Mg Tab) 1,000 mg NG DAILY [facility] Last Admin: 11/07/18 09:58 Dose: 1,000 mg Aspirin (Aspirin Chewable) 81 mg GT DAILY [facility] Last Admin: 11/07/18 09:58 Dose: 81 mg Dextrose (Dextrose 50% Inj) 0 ml IVP .STAT PRN; Protocol PRN Reason: Hypoglycemia Protocol Dextrose (Glutose 15) 0 gm PO .ONCE PRN; Protocol PRN Reason: Hypoglycemia Protocol Glucagon (Glucagen Diagnostic Kit) 0 mg IM .STAT PRN; Protocol PRN Reason: Hypoglycemia Protocol Cefepime HCl 1 gm/ Dextrose 50 mls @ 100 mls/hr IVPB Q12H [facility]; Protocol Last Admin: 11/07/18 10:01 Dose: 100 mls/hr Lactobacillus Acidophilus (Bacid Acidophilus) 1 cap PO BID [facility] Last Admin: 11/06/18 21:45 Dose: 1 cap Methimazole (Tapazole) 10 mg PO Q8 [facility] Last Admin: 11/07/18 05:52 Dose: 10 mg Metoclopramide HCl (Reglan) 10 mg IVP Q6H [facility] Last Admin: 11/07/18 09:57 Dose: 10 mg Midodrine (Proamatine) 10 mg PO TID [facility] Last Admin: 11/07/18 09:59 Dose: 10 mg Modafinil (Provigil) 50 mg PO DAILY [facility] Last Admin: 02/05/19 10:01 Dose: 50 mg Multivitamins (Hexavitamin) 1 tab PEG DAILY [facility] Last Admin: 11/07/18 09:58 Dose: 1 tab Pantoprazole Sodium (Protonix Susp) 40 mg GT Q12H [facility] Last Admin: 11/07/18 09:57 Dose: 40 mg Polyethylene Glycol (Miralax) 17 gm PO BID [facility] Last Admin: 11/07/18 09:58 Dose: 17 gm Simethicone (Mylicon Chew Tab) 80 mg PO QID [facility] Last Admin: 11/07/18 09:58 Dose: 80 mg Sodium Bicarbonate (Sodium Bicarbonate Tab) 650 mg PO BID [facility] Last Admin: 11/07/18 09:58 Dose: 650 mg Tamsulosin HCl (Flomax) 0.4 mg PEG DAILY [facility] Last Admin: 11/07/18 09:58 Dose: 0.4 mg Vitamin A (Vitamin A & D Oint Ud Foilpak) 0.5 ea TOP DAILY [facility] Last Admin: 11/07/18 09:57 Dose: 0.5 ea - Labs Labs: 11/07/18 06:19 11/07/18 06:19 PT 13.3 SECONDS (9.7-12.2) H 10/23/18 06:05 INR 1.2 10/23/18 06:05 APTT 23 SECONDS (21-34) 10/02/18 06:10 - Constitutional Appears: Non-toxic, Cachectic, Chronically Ill - Head Exam Head Exam: NORMOCEPHALIC - Eye Exam Eye Exam: absent: Scleral icterus - ENT Exam ENT Exam: Mucous Membranes Dry - Neck Exam Neck Exam: absent: Lymphadenopathy - Respiratory Exam Respiratory Exam: Decreased Breath Sounds - Cardiovascular Exam Cardiovascular Exam: REGULAR RHYTHM - GI/Abdominal Exam GI & Abdominal Exam: Distended, Soft - Rectal Exam Rectal Exam: Deferred - Exam Exam: NORMAL INSPECTION - Extremities Exam Extremities Exam: absent: Pedal Edema - Back Exam Back Exam: absent: CVA tenderness (L), CVA tenderness (R) Assessment and Plan (1) NEHA (acute kidney injury) Status: Acute (2) Acute renal failure Status: Acute (3) Acute respiratory failure Status: Acute (4) Aspiration pneumonia Status: Acute (5) Septic shock Status: Acute (6) Urinary tract infection Status: Acute (7) Diabetes mellitus Status: Chronic (8) Anoxic brain damage Status: Acute - Assessment and Plan (Free Text) Assessment: cont iv rx chest tube drainage
[2018-11-07] MEDS: Lactobacillus Acidophilus 500 MU Cap PO SCH (18:18)
[2018-11-08] MEDS: Simethicone 80 mg Chewtab PO SCH ×4 (10:00→21:39)
[2018-11-08] MEDS: Pantoprazole 40 mg Susp UD GT SCH ×2 (10:00→21:39)
--- NOTE | 2018-11-08 10:42 | CP.PCM.PN ---
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 200ml residulas in tube feeds per nursing. mental status unchanged Objective - Vital Signs/Intake and Output Vital Signs (last 24 hours): Temp Pulse Resp BP Pulse Ox 98.1 F 88 20 96/61 L 99 11/08/18 08:13 11/08/18 08:13 11/08/18 08:13 11/08/18 08:13 11/08/18 08:13 Intake and Output: 11/08/18 11/08/18 06:59 18:59 Intake Total 170 420 Output Total 250 250 Balance -80 170 - Medications Medications: Current Medications Ascorbic Acid (Vitamin C 500 Mg Tab) 1,000 mg NG DAILY [facility] Last Admin: 11/07/18 09:58 Dose: 1,000 mg Aspirin (Aspirin Chewable) 81 mg GT DAILY [facility] Last Admin: 11/07/18 09:58 Dose: 81 mg Dextrose (Dextrose 50% Inj) 0 ml IVP .STAT PRN; Protocol PRN Reason: Hypoglycemia Protocol Dextrose (Glutose 15) 0 gm PO .ONCE PRN; Protocol PRN Reason: Hypoglycemia Protocol Glucagon (Glucagen Diagnostic Kit) 0 mg IM .STAT PRN; Protocol PRN Reason: Hypoglycemia Protocol Cefepime HCl 1 gm/ Dextrose 50 mls @ 100 mls/hr IVPB Q12H MANOLO; Protocol Last Admin: 11/08/18 08:24 Dose: 100 mls/hr Lactobacillus Acidophilus (Bacid Acidophilus) 1 cap PO BID [facility] Last Admin: 11/07/18 18:18 Dose: 1 cap Methimazole (Tapazole) 10 mg PO Q8 [facility] Last Admin: 11/08/18 06:35 Dose: 10 mg Metoclopramide HCl (Reglan) 10 mg IVP Q6H [facility] Last Admin: 11/08/18 03:50 Dose: 10 mg Midodrine (Proamatine) 10 mg PO TID [facility] Last Admin: 11/07/18 18:30 Dose: 10 mg Modafinil (Provigil) 50 mg PO DAILY [facility] Last Admin: 11/07/18 10:01 Dose: 50 mg Multivitamins (Hexavitamin) 1 tab PEG DAILY [facility] Last Admin: 11/07/18 09:58 Dose: 1 tab Pantoprazole Sodium (Protonix Susp) 40 mg GT Q12H [facility] Last Admin: 11/07/18 21:44 Dose: 40 mg Polyethylene Glycol (Miralax) 17 gm PO BID [facility] Last Admin: 11/07/18 18:17 Dose: 17 gm Simethicone (Mylicon Chew Tab) 80 mg PO QID [facility] Last Admin: 11/07/18 21:43 Dose: 80 mg Sodium Bicarbonate (Sodium Bicarbonate Tab) 650 mg PO BID [facility] Last Admin: 11/07/18 18:20 Dose: 650 mg Tamsulosin HCl (Flomax) 0.4 mg PEG DAILY [facility] Last Admin: 11/07/18 09:58 Dose: 0.4 mg Vitamin A (Vitamin A & D Oint Ud Foilpak) 0.5 ea TOP DAILY [facility] Last Admin: 11/07/18 09:57 Dose: 0.5 ea - Labs Labs: 11/07/18 06:19 11/07/18 06:19 PT 13.3 SECONDS (9.7-12.2) H 10/23/18 06:05 INR 1.2 10/23/18 06:05 APTT 23 SECONDS (21-34) 10/02/18 06:10 - Additional Findings Additional findings: - Constitutional Appears: No Acute Distress, Chronically Ill - Head Exam Head Exam: ATRAUMATIC, NORMAL INSPECTION - Eye Exam Eye Exam: EOMI, PERRL - ENT Exam ENT Exam: Mucous Membranes Moist - Respiratory Exam Respiratory Exam: absent: Respiratory Distress Additional comments: Trach on vent - FiO2 40 - Cardiovascular Exam Cardiovascular Exam: REGULAR RHYTHM, +S1, +S2 - GI/Abdominal Exam GI & Abdominal Exam: Distended, Soft, Normal Bowel Sounds Additional comments: PEG - feeds restarted - Extremities Exam Additional comments: Diffuse atrophy/muscle wasting - Neurological Exam Neurological Exam: Alert, Awake. absent: Normal Gait, Oriented x3 Assessment and Plan - Assessment and Plan (Free Text) Assessment: This is a 52 yo female originally admitted to the ICU for septic shock 2/2 to PNA/UTI worsened by cardiac arrest and anoxic brain injury. Patient found to have apical thrombus in heart. Patient is s/p trach and PEG. Patient still unable to be weaned off vent. She has had multiple complications, including DVT and infections (PNA, UTI). s/p IVC filter 08/23. s/p multiple chest tube placements Sep 19-Oct 21. s/p LP 09/15. Patient has shown minimal improvement of cognitive function during the course of this hospitalization. Patient does not have any insurance and therefore cannot be placed in rehab/NH. Multiple conversations with regarding poor prognosis- he wishes to keep her full code. Palliative and pastoral care have been on board. Plan: Altered mental status/Encephalopathy- suspect anoxic encephalopathy - Code Blue 07/10 and 07/20 - Moved to med surg floor 11/08 - Off sedation - Modafinil 50 mg PO daily - CT head (08/28/18): No hemorrhage or midline shift - MRI brain (09/08/18): No definite mass effect or suspicious extra axial collection. No evidence of acute or subacute brain infarction at this time. Borderline pattern of hydrocephalus. - LP 09/15/18: normal opening pressure - LDH 30, glucose 69, tot prot 67 - CSF Cx: no growth - Other CSF studies pending- called lab 11/01, they will contact [facility] for update - Neurology consulted (George/Ankit) Acute respiratory failure- s/p trach on vent, unable to wean - Tracheostomy 07/24/18, s/p bronchoscopy 08/23 - Patient had tolerated trach collars in early Aug 2018; however she has been on vent to trach since. Fi02: 40% - Bronchoscopy (08/23/18) by Dr. Lozada - Bronchial washings: Pseudomonas Aeruginosa - Fungal Cx: negative - Mycobacterial Cx: negative - Chest physiotherapy - Most recent CT chest (10/27/18): Large bilateral pleural effusions and associated consolidations. Trace pericardial effusion. Borderline cardiomegaly. Enlarged heterogeneous partially imaged thyroid gland. - Monitor CO2 - ABG on FiO2 40 (11/02/18): pH 7.34, pCO2 29, pO2 106 - Start Sodium bicarb 650 mg PEG BID - Duonebs Q4H MANOLO - Pulmonary consulted (Neville) Distended abdomen- resolving BM yesterday - AXR (10/28/18): Nonspecific bowel gas pattern with relative paucity of bowel gas. - Repeat AXR (11/02/18): Normal bowel gas pattern. - PEG tube feeds @ 30 - Residuals noted per nursing , 200ml, flushed, given reglan 10 and lowed tube feeds to 30 - Increase Reglan to 10 mg IV Q6H - Miralax PEG BID - Simethicone 80 mg PEG QID - Phosphate enema x4 - Dulcolax ID x1 - Lactulose ID x1 - Fleet enemas no efficacy yet, monitor and hold feeds Upper Extremity swelling bilateral - f/u upper ext dopplers : neg - holding anticoags due to vaginal bleeding Pleural effusions- s/p bilateral chest tubes - Multiple chest tubes and thoracenteses for effusions, most recent s/p bilateral chest tubes 10/27 - Pleural fluid from 10/13/18 - WBC 794, RBC 2083, tot cells 100, neutrophils 87% - Tot prot<3, LDH 145, glucose 146 - CT chest (10/27/18): Placment of 8.5 Romansh pigtail drainage catheter within right and left pleural space - Most recent CXR (10/31/18): Status post bilateral chest tube placements. Marked reduction of bilateral pleural effusions, commensurate re-expansion of both lungs. - Repeat CXR 11/02: Worsening pulmonary edema - Discontinue IVF - IR consulted (Partha) - Pulmonology consulted (Neville) Thyroid disorder - Thyroid US (07/16/18): Heterogeneous thyroid echotexture. Numerous nodules as described above. Suggest percutaneous biopsy of the following suspicious nodules; 1.8 x 0.9 x 1.7 cm right lower pole nodule, 1.0 x 0.7 x 0.9 cm right upper pole lesion with intracystic vascular nodule, complex left upper pole nodule measuring 2.1 x 1.5 x 1.8 cm. - Note: Initial thyroid studies taken before amiodarone was given- this is NOT amiodarone induced - TSH <0.02 in 07/2018, 10/31/18 TSH 18.10 - Free T4 >3 in 07/2018, 10/31/2018 free T4 0.24 - Recheck TSH, free T4 on 11/08/18 - Methimazole to 10 mg PO Q8H- hold for 5 days (11/01-11/06/18) - Off Propranolol 5 mg PO TID due to hypotension - Endocrinology consulted (Irwin) Hypotension, improved, stable - Remains stable in 100s-120s/50s-60s - Monitor albumin, administer PRN doses - Midodrine 10 mg PEG TID - Start D51/2NS @ 50 Atrial fibrillation RVR - EKG (10/29/18): Afib HR 130 - Lopressor 2.5 mg IVP PRN - Cardiology consulted (Nolan) Deconditioning - Patient needs aggressive continued PT/OT- PT signed off as patient does not follow directions - Nursing and move patient OOB to chair - Social work note (08/09/18): patient is undocumented, has not health insurance, discharge planning will be at home with Septic Shock 2/2 Pneumonia and Urinary Tract Infection (VRE and Pseudomonas)- urinary retention - Off pressors (previously on 3) - Mild leukocytosis (12.4) - Afebrile since 10/21/18 - Procal 1.49 on 11/01/18, 0.66 on 10/21/18 - CXR (11/02/18): worsening pulmonary edema - Most recent blood cultures negative - Most recent urine cultures (10/21/18) +VRE/Pseudomonas, suspect patient likely colonized - Hernandes in place - Midline removed 11/01/18 - Flomax 0.4 mg PEG daily - Cefepime 1 g Q12H- started 10/27 - ID consulted (Vinod) Anemia 2/2 to Chronic Diseases +/- Dysfunctional uterine bleeding, stable - Stool occult blood negative - Iron normal, TIBC low, Iron saturation normal, Ferritin normal - B12, folate normal - Vaginal US: thickened endometrium - Transfused pRBC: 1 unit 07/22/18, 2 units 08/13/18, 1 unit 08/17/18, 1 unit 08/23/18 - OBGYN consulted (Gilberto)- no hysterectomy Apical thrombus - Echo (07/07/18) before cardiac arrest: EF 40-45% - Echo (07/10/19) after cardiac arrest: EF 40%, LV large apical hypokinesis, large 30x20 mm soft tissue apical sessile mass suggestive of thrombus - Echo (08/17/19): LV clot, no significant change - Too high risk for HUBERT - Previously on heparin gtt, Eliquis- stopped due to anemia and vaginal bleeding - ASA 81 mg PEG daily LLE Deep vein thrombosis s/p IVC filter - Venous Doppler (07/18/18): Acute thrombosis of the left common femoral and femoral veins with severe reduction of the venous return - Resolved on repeat imaging - Previously on heparin gtt, Eliquis- stopped due to anemia and vaginal bleeding - s/p IVC filter on 08/23/18 - Vasc surgery consulted (Vicky) Type 2 diabetes mellitus, chronic - A1c: 7.8 - Hypoglycemia protocol - Accuchecks Q6H - ISS Q6H Vtach- Code blue x2 (07/10/18) - Previously on amiodarone ggt - Cardiology consulted (Nolan) Acute kidney failure, resolved - Required dialysis early in admission before code blues - Monitor BUN, Cr Shock liver, resolved - Hepatitis panel negative - HIV negative - Monitor LFTs Ppx: VTE: SCDs GI: Protonix 40mg PEG Q12H PEG: Pulmocare goal rate 40 mL/hr- feeds restarted 2/2 * Lactobacillus 1 cap PEG Q12H * Multivitamin PEG daily * Vitamin C 1,000 PEG daily * Vitamin A&E Code status: full code- Palliative consulted Nasreen Villegas PGY1 <[place] - Last Filed: 11/12/18 17:31> Objective - Vital Signs/Intake and Output Vital Signs (last 24 hours): Temp Pulse Resp BP Pulse Ox 97.8 F 96 H 20 112/68 98 11/12/18 16:31 11/12/18 16:31 11/12/18 16:31 11/12/18 16:31 11/12/18 16:31 Intake and Output: 11/12/18 11/12/18 06:59 18:59 Intake Total 1092 Output Total 500 Balance 592 - Medications Medications: Current Medications Ascorbic Acid (Vitamin C 500 Mg Tab) 1,000 mg NG DAILY [facility] Last Admin: 11/12/18 09:56 Dose: 1,000 mg Aspirin (Aspirin Chewable) 81 mg GT DAILY [facility] Last Admin: 11/12/18 09:57 Dose: 81 mg Dextrose (Dextrose 50% Inj) 0 ml IVP .STAT PRN; Protocol PRN Reason: Hypoglycemia Protocol Dextrose (Glutose 15) 0 gm PO .ONCE PRN; Protocol PRN Reason: Hypoglycemia Protocol Glucagon (Glucagen Diagnostic Kit) 0 mg IM .STAT PRN; Protocol PRN Reason: Hypoglycemia Protocol Cefepime HCl 1 gm/ Dextrose 50 mls @ 100 mls/hr IVPB Q12H [facility]; Protocol Last Admin: 11/12/18 09:55 Dose: 100 mls/hr Lactobacillus Acidophilus (Lactobacillus) 1 cap PO BID [facility] Last Admin: 11/12/18 09:57 Dose: 1 cap Methimazole (Tapazole) 10 mg PO Q8 [facility] Last Admin: 11/12/18 05:46 Dose: 10 mg Metoclopramide HCl (Reglan) 10 mg IVP Q6H [facility] Last Admin: 11/12/18 09:57 Dose: 10 mg Midodrine (Proamatine) 10 mg PO TID [facility] Last Admin: 11/12/18 10:01 Dose: 10 mg Modafinil (Provigil) 50 mg PO DAILY [facility] Last Admin: 11/12/18 09:57 Dose: 50 mg Multivitamins (Hexavitamin) 1 tab PEG DAILY [facility] Last Admin: 11/12/18 09:56 Dose: 1 tab Pantoprazole Sodium (Protonix Susp) 40 mg GT Q12H [facility] Last Admin: 11/12/18 09:56 Dose: 40 mg Polyethylene Glycol (Miralax) 17 gm PO BID [facility] Last Admin: 11/12/18 14:10 Dose: 17 gm Simethicone (Mylicon Chew Tab) 80 mg PO QID [facility] Last Admin: 11/12/18 14:10 Dose: 80 mg Sodium Bicarbonate (Sodium Bicarbonate Tab) 650 mg PO BID [facility] Last Admin: 11/12/18 09:57 Dose: 650 mg Tamsulosin HCl (Flomax) 0.4 mg PEG DAILY [facility] Last Admin: 11/12/18 09:57 Dose: 0.4 mg Vitamin A (Vitamin A & D Oint Ud Foilpak) 0.5 ea TOP DAILY [facility] Last Admin: 11/12/18 09:56 Dose: 0.5 ea - Labs Labs: 11/11/18 07:02 11/11/18 07:02 PT 13.3 SECONDS (9.7-12.2) H 10/23/18 06:05 INR 1.2 10/23/18 06:05 APTT 23 SECONDS (21-34) 10/02/18 06:10 Attending/Attestation - Attestation I have personally seen and examined this patient.: Yes I have fully participated in the care of the patient.: Yes I have reviewed all pertinent clinical information, including history, physical exam and plan: Yes Notes (Text): 11/12/18 17:31 This is a late entry. Care of this patient was gone over with resident Dr. Villegas. [place] D.O.
[2018-11-08] MEDS: Lactobacillus Acidophilus 500 MU Cap PO SCH ×2 (10:51→18:12)
[2018-11-08] MEDS: POLYETHYLENE GLYCOL 3350 17 GM/Dose PACKET PO SCH ×2 (10:51→17:29)
[2018-11-08] MEDS: Vitamins A & D Oint UD Foilpak TOP SCH (10:51)
[2018-11-08] MEDS: Multiple Vitamins Tab PEG SCH (10:52)
[2018-11-08] MEDS: Modafinil 50 MG TAB PO SCH (12:07)
--- NOTE | 2018-11-08 14:41 | VASCLAB ---
Date of service: 11/07/2018 PROCEDURE: Upper Extremity Venous Duplex Exam HISTORY: New onset swelling s/p chest tube PRIORS: 07/17/2018, abnormal. TECHNIQUE: Bilateral upper extremity, internal jugular, subclavian, axillary, brachial, ulnar, radial, basilic and upper cephalic veins were evaluated. Flow was assessed with color Doppler, compressibility, assessment of phasic flow and augmentation response. Report prepared by KEVIN Rebollar FINDINGS: RIGHT: 1. Internal Jugular: 1.1. Unable to examine with neck collar. 2. Subclavian: 2.1. Compressibility - Fully compressible: Thrombus - None : Flow - Phasic: Augmentation -Normal: Reflux - None. 3. Axillary: 3.1. Compressibility - Fully compressible: Thrombus - None : Flow - Phasic: Augmentation -Normal: Reflux - None. 4. Brachial: 4.1. Compressibility - Fully compressible: Thrombus - None: Flow - Phasic: Augmentation -Normal: Reflux - None. 5. Ulnar: 5.1. Compressibility - Fully compressible: Thrombus - None: Flow - Phasic: Augmentation -Normal: Reflux - None. 6. Radial: 6.1. Compressibility - Fully compressible: Thrombus - None: Flow - Phasic: Augmentation - Normal: Reflux - None. 7. Cephalic: (UPPER) 7.1. Compressibility - Fully compressible: Thrombus - None: Flow - Phasic: Augmentation -Normal: Reflux - None. 8. Basilic: 8.1. Unable to examine. LEFT: 1. Internal Jugular: 1.1. Compressibility - Fully compressible: Thrombus - None : Flow - Phasic: Augmentation -Normal: Reflux - None. 2. Subclavian: 2.1. Compressibility - Fully compressible: Thrombus - None : Flow - Phasic: Augmentation -Normal: Reflux - None. 3. Axillary: 3.1. Compressibility - Fully compressible: Thrombus - None : Flow - Phasic: Augmentation -Normal: Reflux - None. 4. Brachial: 4.1. Compressibility - Fully compressible: Thrombus - None: Flow - Phasic: Augmentation -Normal: Reflux - None. 5. Ulnar: 5.1. Unable to examine. 6. Radial: 6.1. Compressibility - Fully compressible: Thrombus - None: Flow - Phasic: Augmentation - Normal: Reflux - None. 7. Cephalic: 7.1. Not visualized. 8. Basilic: 8.1. Compressibility - Fully compressible: Thrombus - None: Flow - Phasic: Augmentation -Normal: Reflux - None. OTHER FINDINGS: Technically difficult exam due to patient status and diminshed caliber vessels at the forearm. IMPRESSION: No evidence of venous thrombosis of bilateral upper extremities, for the examined veins.
--- NOTE | 2018-11-09 07:28 | CP.PCM.PN ---
<Bhanu Villegas - Last Filed: 11/09/18 17:09> Subjective - Date & Time of Evaluation Date of Evaluation: 11/09/18 Time of Evaluation: 15:30 - Subjective Subjective: HOSPITALIST SERVICES Pt seen and examined at bedside, as per nursing, chest tubes no longer draining at all, no acute events overnight. Pt still at same mental status Objective - Vital Signs/Intake and Output Vital Signs (last 24 hours): Temp Pulse Resp BP Pulse Ox 98.2 F 83 20 125/68 100 11/09/18 01:00 11/09/18 01:00 11/09/18 01:00 11/09/18 01:00 11/09/18 01:00 - Medications Medications: Current Medications Ascorbic Acid (Vitamin C 500 Mg Tab) 1,000 mg NG DAILY [facility] Last Admin: 11/08/18 12:07 Dose: 1,000 mg Aspirin (Aspirin Chewable) 81 mg GT DAILY [facility] Last Admin: 11/08/18 10:55 Dose: 81 mg Dextrose (Dextrose 50% Inj) 0 ml IVP .STAT PRN; Protocol PRN Reason: Hypoglycemia Protocol Dextrose (Glutose 15) 0 gm PO .ONCE PRN; Protocol PRN Reason: Hypoglycemia Protocol Glucagon (Glucagen Diagnostic Kit) 0 mg IM .STAT PRN; Protocol PRN Reason: Hypoglycemia Protocol Cefepime HCl 1 gm/ Dextrose 50 mls @ 100 mls/hr IVPB Q12H [facility]; Protocol Last Admin: 11/08/18 21:40 Dose: 100 mls/hr Lactobacillus Acidophilus (Bacid Acidophilus) 1 cap PO BID [facility] Last Admin: 11/08/18 18:12 Dose: 1 cap Methimazole (Tapazole) 10 mg PO Q8 [facility] Last Admin: 11/09/18 06:18 Dose: 10 mg Metoclopramide HCl (Reglan) 10 mg IVP Q6H [facility] Last Admin: 11/09/18 04:26 Dose: 10 mg Midodrine (Proamatine) 10 mg PO TID [facility] Last Admin: 11/08/18 17:31 Dose: 10 mg Modafinil (Provigil) 50 mg PO DAILY [facility] Last Admin: 11/08/18 12:07 Dose: 50 mg Multivitamins (Hexavitamin) 1 tab PEG DAILY [facility] Last Admin: 11/08/18 10:52 Dose: 1 tab Pantoprazole Sodium (Protonix Susp) 40 mg GT Q12H [facility] Last Admin: 11/08/18 21:39 Dose: 40 mg Polyethylene Glycol (Miralax) 17 gm PO BID [facility] Last Admin: 11/08/18 17:29 Dose: 17 gm Simethicone (Mylicon Chew Tab) 80 mg PO QID [facility] Last Admin: 11/08/18 21:39 Dose: 80 mg Sodium Bicarbonate (Sodium Bicarbonate Tab) 650 mg PO BID [facility] Last Admin: 11/08/18 17:29 Dose: 650 mg Tamsulosin HCl (Flomax) 0.4 mg PEG DAILY [facility] Last Admin: 11/08/18 10:52 Dose: 0.4 mg Vitamin A (Vitamin A & D Oint Ud Foilpak) 0.5 ea TOP DAILY [facility] Last Admin: 11/08/18 10:51 Dose: 0.5 ea - Labs Labs: 11/07/18 06:19 11/07/18 06:19 PT 13.3 SECONDS (9.7-12.2) H 10/23/18 06:05 INR 1.2 10/23/18 06:05 APTT 23 SECONDS (21-34) 10/02/18 06:10 - Additional Findings Additional findings: - Constitutional Appears: No Acute Distress, Chronically Ill - Head Exam Head Exam: ATRAUMATIC, NORMAL INSPECTION - Eye Exam Eye Exam: EOMI, PERRL - ENT Exam ENT Exam: Mucous Membranes Moist - Respiratory Exam Respiratory Exam: absent: Respiratory Distress Additional comments: Trach on vent - FiO2 40 - Cardiovascular Exam Cardiovascular Exam: REGULAR RHYTHM, +S1, +S2 - GI/Abdominal Exam GI & Abdominal Exam: Distended, Soft, Normal Bowel Sounds Additional comments: PEG - feeds restarted - Extremities Exam Additional comments: Diffuse atrophy/muscle wasting - Neurological Exam Neurological Exam: Alert, Awake. absent: Normal Gait, Oriented x3 Assessment and Plan - Assessment and Plan (Free Text) Assessment: This is a 52 yo female originally admitted to the ICU for septic shock 2/2 to PNA/UTI worsened by cardiac arrest and anoxic brain injury. Patient found to have apical thrombus in heart. Patient is s/p trach and PEG. Patient still unable to be weaned off vent. She has had multiple complications, including DVT and infections (PNA, UTI). s/p IVC filter 08/23. s/p multiple chest tube placements Sep 19-Oct 21. s/p LP 09/15. Patient has shown minimal improvement of cognitive function during the course of this hospitalization. Patient does not have any insurance and therefore cannot be placed in rehab/NH. Multiple conversa tions with regarding poor prognosis- he wishes to keep her full code. Palliative and pastoral care have been on board. Plan: Altered mental status/Encephalopathy- suspect anoxic encephalopathy - Code Blue 07/10 and 07/20 - Moved to [facility] floor 11/08 - Chest tubes 0ml of drainage 7am-7pm - Off sedation - Modafinil 50 mg PO daily - CT head (08/28/18): No hemorrhage or midline shift - MRI brain (09/08/18): No definite mass effect or suspicious extra axial collection. No evidence of acute or subacute brain infarction at this time. Borderline pattern of hydrocephalus. - LP 09/15/18: normal opening pressure - LDH 30, glucose 69, tot prot 67 - CSF Cx: no growth - Other CSF studies pending- called lab 11/01, they will contact [facility] - Neurology consulted (George/Ankit) Acute respiratory failure- s/p trach on vent, unable to wean - Tracheostomy 07/24/18, s/p bronchoscopy 08/23 - Patient had tolerated trach collars in early Aug 2018; however she has been on vent to trach since. Fi02: 40% - Bronchoscopy (08/23/18) by Dr. Lozada - Bronchial washings: Pseudomonas Aeruginosa - Fungal Cx: negative - Mycobacterial Cx: negative - Chest physiotherapy - Most recent CT chest (10/27/18): Large bilateral pleural effusions and associated consolidations. Trace pericardial effusion. Borderline cardiomegaly. Enlarged heterogeneous partially imaged thyroid gland. - Monitor CO2 - ABG on FiO2 40 (11/02/18): pH 7.34, pCO2 29, pO2 106 - Start Sodium bicarb 650 mg PEG BID - Duonebs Q4H [facility] - Pulmonary consulted (Neville) Distended abdomen- resolving BM yesterday - AXR (10/28/18): Nonspecific bowel gas pattern with relative paucity of bowel gas. - Repeat AXR (11/02/18): Normal bowel gas pattern. - PEG tube feeds @ 30 - Residuals noted per nursing , 200ml, flushed, given reglan 10 and lowed tube feeds to 30 - Increase Reglan to 10 mg IV Q6H - Miralax PEG BID - Simethicone 80 mg PEG QID - Phosphate enema x4 - Dulcolax OK x1 - Lactulose OK x1 - Fleet enemas no efficacy yet, monitor and hold feeds Upper Extremity swelling bilateral - f/u upper ext dopplers : neg - holding anticoags due to vaginal bleeding Pleural effusions- s/p bilateral chest tubes - Multiple chest tubes and thoracenteses for effusions, most recent s/p bilateral chest tubes 10/27 - Pleural fluid from 10/13/18 - WBC 794, RBC 2083, tot cells 100, neutrophils 87% - Tot prot<3, LDH 145, glucose 146 - CT chest (10/27/18): Placment of 8.5 Mong[place]ian pigtail drainage catheter within right and left pleural space - Most recent CXR (10/31/18): Status post bilateral chest tube placements. Marked reduction of bilateral pleural effusions, commensurate re-expansion of both lungs. - Repeat CXR 11/02: Worsening pulmonary edema - Discontinue IVF - IR consulted (Partha) - Pulmonology consulted (Neville) Thyroid disorder - Thyroid US (07/16/18): Heterogeneous thyroid echotexture. Numerous nodules as described above. Suggest percutaneous biopsy of the following suspicious nodules; 1.8 x 0.9 x 1.7 cm right lower pole nodule, 1.0 x 0.7 x 0.9 cm right upper pole lesion with intracystic vascular nodule, complex left upper pole nodule measuring 2.1 x 1.5 x 1.8 cm. - Note: Initial thyroid studies taken before amiodarone was given- this is NOT amiodarone induced - TSH <0.02 in 07/2018, 10/31/18 TSH 18.10 - Free T4 >3 in 07/2018, 10/31/2018 free T4 0.24 - Recheck TSH, free T4 on 11/08/18 - Methimazole to 10 mg PO Q8H- hold for 5 days (11/01-11/06/18) - Off Propranolol 5 mg PO TID due to hypotension - Endocrinology consulted (Irwin) Hypotension, improved, stable - Remains stable in 100s-120s/50s-60s - Monitor albumin, administer PRN doses - Midodrine 10 mg PEG TID - Start D51/2NS @ 50 Atrial fibrillation RVR - EKG (10/29/18): Afib HR 130 - Lopressor 2.5 mg IVP PRN - Cardiology consulted (Nolan) Deconditioning - Patient needs aggressive continued PT/OT- PT signed off as patient does not follow directions - Nursing and move patient OOB to chair - Social work note (08/09/18): patient is undocumented, has not health insurance, discharge planning will be at home with Septic Shock 2/2 Pneumonia and Urinary Tract Infection (VRE and Pseudomonas)- urinary retention - Off pressors (previously on 3) - Mild leukocytosis (12.4) - Afebrile since 10/21/18 - Procal 1.49 on 11/01/18, 0.66 on 10/21/18 - CXR (11/02/18): worsening pulmonary edema - Most recent blood cultures negative - Most recent urine cultures (10/21/18) +VRE/Pseudomonas, suspect patient likely colonized - Hernandes in place - Midline removed 11/01/18 - Flomax 0.4 mg PEG daily - Cefepime 1 g Q12H- started 10/27 - ID consulted (Vinod) Anemia 2/2 to Chronic Diseases +/- Dysfunctional uterine bleeding, stable - Stool occult blood negative - Iron normal, TIBC low, Iron saturation normal, Ferritin normal - B12, folate normal - Vaginal US: thickened endometrium - Transfused pRBC: 1 unit 07/22/18, 2 units 08/13/18, 1 unit 08/17/18, 1 unit 08/23/18 - OBGYN consulted (Gilberto)- no hysterectomy Apical thrombus - Echo (07/07/18) before cardiac arrest: EF 40-45% - Echo (07/10/19) after cardiac arrest: EF 40%, LV large apical hypokinesis, large 30x20 mm soft tissue apical sessile mass suggestive of thrombus - Echo (08/17/19): LV clot, no significant change - Too high risk for HUBERT - Previously on heparin gtt, Eliquis- stopped due to anemia and vaginal bleeding - ASA 81 mg PEG daily LLE Deep vein thrombosis s/p IVC filter - Venous Doppler (07/18/18): Acute thrombosis of the left common femoral and femoral veins with severe reduction of the venous return - Resolved on repeat imaging - Previously on heparin gtt, Eliquis- stopped due to anemia and vaginal bleeding - s/p IVC filter on 08/23/18 - Vasc surgery consulted (Vicky) Type 2 diabetes mellitus, chronic - A1c: 7.8 - Hypoglycemia protocol - Accuchecks Q6H - ISS Q6H Vtach- Code blue x2 (07/10/18) - Previously on amiodarone ggt - Cardiology consulted (Nolan) Acute kidney failure, resolved - Required dialysis early in admission before code blues - Monitor BUN, Cr Shock liver, resolved - Hepatitis panel negative - HIV negative - Monitor LFTs Ppx: VTE: SCDs GI: Protonix 40mg PEG Q12H PEG: Pulmocare goal rate 40 mL/hr- feeds restarted 2/2 * Lactobacillus 1 cap PEG Q12H * Multivitamin PEG daily * Vitamin C 1,000 PEG daily * Vitamin A&E Code status: full code- Palliative consulted Nasreen Villegas PGY1 <[place] - Last Filed: 11/12/18 17:31> Objective - Vital Signs/Intake and Output Vital Signs (last 24 hours): Temp Pulse Resp BP Pulse Ox 97.8 F 96 H 20 112/68 98 11/12/18 16:31 11/12/18 16:31 11/12/18 16:31 11/12/18 16:31 11/12/18 16:31 Intake and Output: 11/12/18 11/12/18 06:59 18:59 Intake Total 1092 Output Total 500 Balance 592 - Medications Medications: Current Medications Ascorbic Acid (Vitamin C 500 Mg Tab) 1,000 mg NG DAILY [facility] Last Admin: 11/12/18 09:56 Dose: 1,000 mg Aspirin (Aspirin Chewable) 81 mg GT DAILY [facility] Last Admin: 11/12/18 09:57 Dose: 81 mg Dextrose (Dextrose 50% Inj) 0 ml IVP .STAT PRN; Protocol PRN Reason: Hypoglycemia Protocol Dextrose (Glutose 15) 0 gm PO .ONCE PRN; Protocol PRN Reason: Hypoglycemia Protocol Glucagon (Glucagen Diagnostic Kit) 0 mg IM .STAT PRN; Protocol PRN Reason: Hypoglycemia Protocol Cefepime HCl 1 gm/ Dextrose 50 mls @ 100 mls/hr IVPB Q12H [facility]; Protocol Last Admin: 11/12/18 09:55 Dose: 100 mls/hr Lactobacillus Acidophilus (Lactobacillus) 1 cap PO BID [facility] Last Admin: 11/12/18 09:57 Dose: 1 cap Methimazole (Tapazole) 10 mg PO Q8 [facility] Last Admin: 11/12/18 05:46 Dose: 10 mg Metoclopramide HCl (Reglan) 10 mg IVP Q6H [facility] Last Admin: 11/12/18 09:57 Dose: 10 mg Midodrine (Proamatine) 10 mg PO TID [facility] Last Admin: 11/12/18 10:01 Dose: 10 mg Modafinil (Provigil) 50 mg PO DAILY [facility] Last Admin: 11/12/18 09:57 Dose: 50 mg Multivitamins (Hexavitamin) 1 tab PEG DAILY [facility] Last Admin: 11/12/18 09:56 Dose: 1 tab Pantoprazole Sodium (Protonix Susp) 40 mg GT Q12H [facility] Last Admin: 11/12/18 09:56 Dose: 40 mg Polyethylene Glycol (Miralax) 17 gm PO BID [facility] Last Admin: 11/12/18 14:10 Dose: 17 gm Simethicone (Mylicon Chew Tab) 80 mg PO QID [facility] Last Admin: 11/12/18 14:10 Dose: 80 mg Sodium Bicarbonate (Sodium Bicarbonate Tab) 650 mg PO BID [facility] Last Admin: 11/12/18 09:57 Dose: 650 mg Tamsulosin HCl (Flomax) 0.4 mg PEG DAILY [facility] Last Admin: 11/12/18 09:57 Dose: 0.4 mg Vitamin A (Vitamin A & D Oint Ud Foilpak) 0.5 ea TOP DAILY [facility] Last Admin: 11/12/18 09:56 Dose: 0.5 ea - Labs Labs: 11/11/18 07:02 11/11/18 07:02 PT 13.3 SECONDS (9.7-12.2) H 10/23/18 06:05 INR 1.2 10/23/18 06:05 APTT 23 SECONDS (21-34) 10/02/18 06:10 Attending/Attestation - Attestation I have personally seen and examined this patient.: Yes I have fully participated in the care of the patient.: Yes I have reviewed all pertinent clinical information, including history, physical exam and plan: Yes Notes (Text): 11/12/18 17:31 This is a late entry. Care of this patient was gone over with resident Dr. Villegas. [place] D.O.
[2018-11-09 08:59] LABS: BASO # 0.1 K/uL (0.0-0.2); BASO % 0.6 % (0.0-2.0); EOS # 0.4 K/uL (0.0-0.7); EOS % 4.2 % (0.0-4.0); HEMOGLOBIN 8.3 g/dL (11.0-16.0); LYMPH # 1.1 K/uL (1.0-4.3); LYMPH % 12.5 % (20.0-40.0); MEAN CELL VOLUME 89.4 fL (81.0-99.0); MEAN CORPUSCULAR HEMOGLOBIN 29.8 pg (27.0-31.0); MEAN CORPUSCULAR HGB CONC 33.4 g/dL (33.0-37.0); MEAN PLATELET VOLUME 7.7 fL (7.2-11.7); MONO # 0.4 K/uL (0.0-0.8); NEUT # 6.8 K/uL (1.8-7.0); NEUT % 77.7 % (50.0-75.0); RBC 2.8 Mil/uL (3.80-5.20); RED CELL DISTRIBUTION WIDTH 20.8 % (11.5-14.5); WHITE BLOOD COUNT 8.7 K/uL (4.8-10.8)
[2018-11-09 09:17] LABS: ALB/GLOB RATIO 0.8 (1.0-2.1); ALBUMIN 2.2 g/dL (3.5-5.0); ALT/SGPT 14 U/L (9-52); AST/SGOT 24 U/L (14-36); BLOOD UREA NITROGEN 26 mg/dL (7-17); GFR NON-AFRICAN AMERICAN > 60
[2018-11-09] MEDS: Vitamins A & D Oint UD Foilpak TOP SCH (11:11)
[2018-11-09] MEDS: Multiple Vitamins Tab PEG SCH (11:11)
[2018-11-09] MEDS: Modafinil 50 MG TAB PO SCH (11:11)
[2018-11-09] MEDS: Simethicone 80 mg Chewtab PO SCH ×4 (11:11→21:40)
[2018-11-09] MEDS: Lactobacillus Acidophilus 500 MU Cap PO SCH ×2 (11:12→17:57)
[2018-11-09] MEDS: Pantoprazole 40 mg Susp UD GT SCH ×2 (11:15→21:40)
[2018-11-09] MEDS: POLYETHYLENE GLYCOL 3350 17 GM/Dose PACKET PO SCH ×2 (11:15→17:57)
--- NOTE | 2018-11-10 09:22 | RAD ---
Date of service: 11/10/2018 HISTORY: chest tubes no longer draining COMPARISON: 11/02/2018 FINDINGS: Stable position of the tracheostomy tube. Bilateral pigtail chest tubes are stable in position. LUNGS: There is interval improved aeration in both lungs. There is mild pulmonary venous congestion. PLEURA: No pleural effusions or pneumothorax. CARDIOVASCULAR: The heart is normal in size. No aortic atherosclerotic calcifications present. OSSEOUS STRUCTURES: Within normal limits for the patient's age. VISUALIZED UPPER ABDOMEN: Normal. OTHER FINDINGS: None. IMPRESSION: Interval improved aeration in both lungs. No acute findings. Stable position of bilateral chest tubes. Stable position of tracheostomy tube.
[2018-11-10] MEDS: Pantoprazole 40 mg Susp UD GT SCH ×2 (10:15→22:06)
[2018-11-10] MEDS: Multiple Vitamins Tab PEG SCH (10:25)
[2018-11-10] MEDS: Vitamins A & D Oint UD Foilpak TOP SCH (10:26)
[2018-11-10] MEDS: POLYETHYLENE GLYCOL 3350 17 GM/Dose PACKET PO SCH ×2 (10:26→17:44)
[2018-11-10] MEDS: Lactobacillus Acidophilus 500 MU Cap PO SCH ×2 (10:26→17:44)
[2018-11-10] MEDS: Modafinil 50 MG TAB PO SCH (10:31)
--- NOTE | 2018-11-10 10:44 | CP.PCM.PN ---
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 Pt still ams. no other issues endorsed by nursing. Objective - Vital Signs/Intake and Output Vital Signs (last 24 hours): Temp Pulse Resp BP Pulse Ox 97.3 F L 78 20 109/73 100 11/10/18 08:00 11/10/18 08:00 11/10/18 08:00 11/10/18 08:00 11/10/18 08:00 Intake and Output: 11/10/18 11/10/18 06:59 18:59 Intake Total 540 490 Output Total 485 800 Balance 55 -310 - Medications Medications: Current Medications Ascorbic Acid (Vitamin C 500 Mg Tab) 1,000 mg NG DAILY [facility] Last Admin: 11/10/18 10:25 Dose: 1,000 mg Aspirin (Aspirin Chewable) 81 mg GT DAILY [facility] Last Admin: 11/10/18 10:24 Dose: 81 mg Dextrose (Dextrose 50% Inj) 0 ml IVP .STAT PRN; Protocol PRN Reason: Hypoglycemia Protocol Dextrose (Glutose 15) 0 gm PO .ONCE PRN; Protocol PRN Reason: Hypoglycemia Protocol Glucagon (Glucagen Diagnostic Kit) 0 mg IM .STAT PRN; Protocol PRN Reason: Hypoglycemia Protocol Cefepime HCl 1 gm/ Dextrose 50 mls @ 100 mls/hr IVPB Q12H [facility]; Protocol Last Admin: 11/09/18 21:39 Dose: 100 mls/hr Lactobacillus Acidophilus (Lactobacillus) 1 cap PO BID [facility] Last Admin: 11/10/18 10:26 Dose: 1 cap Methimazole (Tapazole) 10 mg PO Q8 [facility] Last Admin: 11/10/18 05:42 Dose: 10 mg Metoclopramide HCl (Reglan) 10 mg IVP Q6H [facility] Last Admin: 11/10/18 10:29 Dose: 10 mg Midodrine (Proamatine) 10 mg PO TID [facility] Last Admin: 11/10/18 10:27 Dose: 10 mg Modafinil (Provigil) 50 mg PO DAILY [facility] Last Admin: 11/10/18 10:31 Dose: 50 mg Multivitamins (Hexavitamin) 1 tab PEG DAILY [facility] Last Admin: 11/10/18 10:25 Dose: 1 tab Pantoprazole Sodium (Protonix Susp) 40 mg GT Q12H [facility] Last Admin: 11/10/18 10:15 Dose: 40 mg Polyethylene Glycol (Miralax) 17 gm PO BID [facility] Last Admin: 11/10/18 10:26 Dose: 17 gm Simethicone (Mylicon Chew Tab) 80 mg PO QID [facility] Last Admin: 11/09/18 21:40 Dose: 80 mg Sodium Bicarbonate (Sodium Bicarbonate Tab) 650 mg PO BID [facility] Last Admin: 11/10/18 10:24 Dose: 650 mg Tamsulosin HCl (Flomax) 0.4 mg PEG DAILY [facility] Last Admin: 11/10/18 10:25 Dose: 0.4 mg Vitamin A (Vitamin A & D Oint Ud Foilpak) 0.5 ea TOP DAILY [facility] Last Admin: 11/10/18 10:26 Dose: 0.5 ea - Labs Labs: 11/09/18 08:50 11/09/18 08:50 PT 13.3 SECONDS (9.7-12.2) H 10/23/18 06:05 INR 1.2 10/23/18 06:05 APTT 23 SECONDS (21-34) 10/02/18 06:10 - Additional Findings Additional findings: - Constitutional Appears: No Acute Distress, Chronically Ill - Head Exam Head Exam: ATRAUMATIC, NORMAL INSPECTION - Eye Exam Eye Exam: EOMI, PERRL - ENT Exam ENT Exam: Mucous Membranes Moist - Respiratory Exam Respiratory Exam: absent: Respiratory Distress Additional comments: Trach on vent - FiO2 40 Chest Tubes: R drained 270cc, L drained 80cc overnight 7pm-7am - Cardiovascular Exam Cardiovascular Exam: REGULAR RHYTHM, +S1, +S2 - GI/Abdominal Exam GI & Abdominal Exam: Distended, Soft, Normal Bowel Sounds Additional comments: PEG - feeds restarted - Extremities Exam Additional comments: Diffuse atrophy/muscle wasting - Neurological Exam Neurological Exam: Alert, Awake. absent: Normal Gait, Oriented x3 Assessment and Plan - Assessment and Plan (Free Text) Assessment: This is a 52 yo female originally admitted to the ICU for septic shock 2/2 to PNA/UTI worsened by cardiac arrest and anoxic brain injury. Patient found to have apical thrombus in heart. Patient is s/p trach and PEG. Patient still unable to be weaned off vent. She has had multiple complications, including DVT and infections (PNA, UTI). s/p IVC filter 08/23. s/p multiple chest tube placements Sep 19-Oct 21. s/p LP 09/15. Patient has shown minimal improvement of cognitive function during the course of this hospitalization. Patient does not have any insurance and therefore cannot be placed in rehab/NH. Multiple conversations with regarding poor prognosis- he wishes to keep her full code. Palliative and pastoral care have been on board. Plan: Altered mental status/Encephalopathy- suspect anoxic encephalopathy - Code Blue 07/10 and 07/20 - Moved to med surg floor 11/08 - Chest tubes 0ml of drainage 7am-7pm - Off sedation - Modafinil 50 mg PO daily - CT head (08/28/18): No hemorrhage or midline shift - MRI brain (09/08/18): No definite mass effect or suspicious extra axial collection. No evidence of acute or subacute brain infarction at this time. Borderline pattern of hydrocephalus. - LP 09/15/18: normal opening pressure - LDH 30, glucose 69, tot prot 67 - CSF Cx: no growth - Other CSF studies pending- called lab 11/01, they will contact [facility] for update - Neurology consulted (George/Ankit) Acute respiratory failure- s/p trach on vent, unable to wean - Tracheostomy 07/24/18, s/p bronchoscopy 08/23 - Patient had tolerated trach collars in early Aug 2018; however she has been on vent to trach since. Fi02: 40% - Bronchoscopy (08/23/18) by Dr. Lozada - Bronchial washings: Pseudomonas Aeruginosa - Fungal Cx: negative - Mycobacterial Cx: negative - Chest physiotherapy - Most recent CT chest (10/27/18): Large bilateral pleural effusions and associated consolidations. Trace pericardial effusion. Borderline cardiomegaly. Enlarged heterogeneous partially imaged thyroid gland. - Monitor CO2 - ABG on FiO2 40 (11/02/18): pH 7.34, pCO2 29, pO2 106 - Start Sodium bicarb 650 mg PEG BID - Duonebs Q4H [facility] - Pulmonary consulted (Neville) Distended abdomen- resolving BM yesterday - AXR (10/28/18): Nonspecific bowel gas pattern with relative paucity of bowel gas. - Repeat AXR (11/02/18): Normal bowel gas pattern. - PEG tube feeds @ 30 - Residuals noted per nursing , 200ml, flushed, given reglan 10 and lowed tube feeds to 30 - Increase Reglan to 10 mg IV Q6H - Miralax PEG BID - Simethicone 80 mg PEG QID - Phosphate enema x4 - Dulcolax SC x1 - Lactulose SC x1 - Fleet enemas no efficacy yet, monitor and hold feeds Upper Extremity swelling bilateral - f/u upper ext dopplers : neg - holding anticoags due to vaginal bleeding Pleural effusions- s/p bilateral chest tubes - Multiple chest tubes and thoracenteses for effusions, most recent s/p bilateral chest tubes 10/27 - Pleural fluid from 10/13/18 - WBC 794, RBC 2083, tot cells 100, neutrophils 87% - Tot prot<3, LDH 145, glucose 146 - CT chest (10/27/18): Placment of 8.5 Egyptian pigtail drainage catheter within right and left pleural space - Most recent CXR (10/31/18): Status post bilateral chest tube placements. Marked reduction of bilateral pleural effusions, commensurate re-expansion of both lungs. - Repeat CXR 11/02: Worsening pulmonary edema - Discontinue IVF - IR consulted (Partha) - Pulmonology consulted (Neville) Thyroid disorder - Thyroid US (07/16/18): Heterogeneous thyroid echotexture. Numerous nodules as described above. Suggest percutaneous biopsy of the following suspicious nodules; 1.8 x 0.9 x 1.7 cm right lower pole nodule, 1.0 x 0.7 x 0.9 cm right upper pole lesion with intracystic vascular nodule, complex left upper pole nodule measuring 2.1 x 1.5 x 1.8 cm. - Note: Initial thyroid studies taken before amiodarone was given- this is NOT amiodarone induced - TSH <0.02 in 07/2018, 10/31/18 TSH 18.10 - Free T4 >3 in 07/2018, 10/31/2018 free T4 0.24 - Recheck TSH, free T4 on 11/08/18 - Methimazole to 10 mg PO Q8H- hold for 5 days (11/01-11/06/18) - Off Propranolol 5 mg PO TID due to hypotension - Endocrinology consulted (Irwin) Hypotension, improved, stable - Remains stable in 100s-120s/50s-60s - Monitor albumin, administer PRN doses - Midodrine 10 mg PEG TID - Start D51/2NS @ 50 Atrial fibrillation RVR - EKG (10/29/18): Afib HR 130 - Lopressor 2.5 mg IVP PRN - Cardiology consulted (Nolan) Deconditioning - Patient needs aggressive continued PT/OT- PT signed off as patient does not follow directions - Nursing and move patient OOB to chair - Social work note (08/09/18): patient is undocumented, has not health insurance, discharge planning will be at home with Septic Shock 2/2 Pneumonia and Urinary Tract Infection (VRE and Pseudomonas)- urinary retention - Off pressors (previously on 3) - Mild leukocytosis (12.4) - Afebrile since 10/21/18 - Procal 1.49 on 11/01/18, 0.66 on 10/21/18 - CXR (11/02/18): worsening pulmonary edema - Most recent blood cultures negative - Most recent urine cultures (10/21/18) +VRE/Pseudomonas, suspect patient likely colonized - Hernandes in place - Midline removed 11/01/18 - Flomax 0.4 mg PEG daily - Cefepime 1 g Q12H- started 10/27 - ID consulted (Vinod) Anemia 2/2 to Chronic Diseases +/- Dysfunctional uterine bleeding, stable - Stool occult blood negative - Iron normal, TIBC low, Iron saturation normal, Ferritin normal - B12, folate normal - Vaginal US: thickened endometrium - Transfused pRBC: 1 unit 07/22/18, 2 units 08/13/18, 1 unit 08/17/18, 1 unit 08/23/18 - OBGYN consulted (Gilberto)- no hysterectomy Apical thrombus - Echo (07/07/18) before cardiac arrest: EF 40-45% - Echo (07/10/19) after cardiac arrest: EF 40%, LV large apical hypokinesis, large 30x20 mm soft tissue apical sessile mass suggestive of thrombus - Echo (08/17/19): LV clot, no significant change - Too high risk for HUBERT - Previously on heparin gtt, Eliquis- stopped due to anemia and vaginal bleeding - ASA 81 mg PEG daily LLE Deep vein thrombosis s/p IVC filter - Venous Doppler (07/18/18): Acute thrombosis of the left common femoral and femoral veins with severe reduction of the venous return - Resolved on repeat imaging - Previously on heparin gtt, Eliquis- stopped due to anemia and vaginal bleeding - s/p IVC filter on 08/23/18 - Vasc surgery consulted (Vicky) Type 2 diabetes mellitus, chronic - A1c: 7.8 - Hypoglycemia protocol - Accuchecks Q6H - ISS Q6H Vtach- Code blue x2 (07/10/18) - Previously on amiodarone ggt - Cardiology consulted (Nolan) Acute kidney failure, resolved - Required dialysis early in admission before code blues - Monitor BUN, Cr Shock liver, resolved - Hepatitis panel negative - HIV negative - Monitor LFTs Ppx: VTE: SCDs GI: Protonix 40mg PEG Q12H PEG: Pulmocare goal rate 40 mL/hr- feeds restarted 2/2 * Lactobacillus 1 cap PEG Q12H * Multivitamin PEG daily * Vitamin C 1,000 PEG daily * Vitamin A&E Code status: full code- Palliative consulted Nasreen Villegas PGY1 <[place] - Last Filed: 11/22/18 19:09> Objective - Vital Signs/Intake and Output Vital Signs (last 24 hours): Temp Pulse Resp BP Pulse Ox 98.2 F 84 20 122/71 100 11/22/18 15:07 11/22/18 15:07 11/22/18 15:07 11/22/18 15:07 11/22/18 15:07 Intake and Output: 11/22/18 11/23/18 18:59 06:59 Intake Total 950 Output Total 610 Balance 340 - Medications Medications: Current Medications Albuterol/Ipratropium (Duoneb 3 Mg/0.5 Mg (3 Ml) Ud) 3 ml INH RQ4 [facility] Last Admin: 11/22/18 15:56 Dose: 3 ml Ascorbic Acid (Vitamin C 500 Mg Tab) 1,000 mg NG DAILY [facility] Last Admin: 11/22/18 09:20 Dose: 1,000 mg Aspirin (Aspirin Chewable) 81 mg GT DAILY [facility] Last Admin: 11/14/18 11:00 Dose: 81 mg Dextrose (Dextrose 50% Inj) 0 ml IVP .STAT PRN; Protocol PRN Reason: Hypoglycemia Protocol Dextrose (Glutose 15) 0 gm PO .ONCE PRN; Protocol PRN Reason: Hypoglycemia Protocol Emollient Ointment (Vaseline Oint) 5 gm TOP DAILY [facility] Last Admin: 11/22/18 09:21 Dose: 5 gm Glucagon (Glucagen Diagnostic Kit) 0 mg IM .STAT PRN; Protocol PRN Reason: Hypoglycemia Protocol Cefepime HCl 1 gm/ Dextrose 50 mls @ 100 mls/hr IVPB Q12H [facility]; Protocol Last Admin: 11/22/18 08:39 Dose: 100 mls/hr Linezolid (Zyvox 600mg/300ml D5w) 600 mg in 300 mls @ 200 mls/hr IVPB Q12H [facility]; Protocol Last Admin: 11/22/18 17:57 Dose: 200 mls/hr Lactobacillus Acidophilus (Lactobacillus) 1 cap PO BID [facility] Last Admin: 11/22/18 17:56 Dose: 1 cap Methimazole (Tapazole) 10 mg PO Q8 [facility] Last Admin: 11/22/18 13:09 Dose: 10 mg Midodrine (Proamatine) 10 mg PO TID [facility] Last Admin: 11/22/18 17:57 Dose: 10 mg Modafinil (Provigil) 50 mg PO DAILY [facility] Last Admin: 11/22/18 09:20 Dose: 50 mg Multivitamins (Hexavitamin) 1 tab PEG DAILY [facility] Last Admin: 11/22/18 09:21 Dose: 1 tab Pantoprazole Sodium (Protonix Susp) 40 mg GT Q12H [facility] Last Admin: 11/22/18 09:20 Dose: 40 mg Simethicone (Mylicon Chew Tab) 80 mg PO QID [facility] Last Admin: 11/22/18 17:57 Dose: 80 mg Sodium Bicarbonate (Sodium Bicarbonate Tab) 650 mg PO BID [facility] Last Admin: 11/22/18 17:57 Dose: 650 mg Tamsulosin HCl (Flomax) 0.4 mg PEG DAILY [facility] Last Admin: 11/22/18 09:20 Dose: 0.4 mg - Labs Labs: 11/22/18 11:38 11/22/18 11:38 PT 13.3 SECONDS (9.7-12.2) H 10/23/18 06:05 INR 1.2 10/23/18 06:05 APTT 23 SECONDS (21-34) 10/02/18 06:10 Attending/Attestation - Attestation I have personally seen and examined this patient.: Yes I have fully participated in the care of the patient.: Yes I have reviewed all pertinent clinical information, including history, physical exam and plan: Yes Notes (Text): 11/22/18 19:08 This is a late entry. Care of this patient was gone over with resident Dr. Villegas. [place] D.O.
[2018-11-10] MEDS: Simethicone 80 mg Chewtab PO SCH ×4 (10:53→22:06)
--- NOTE | 2018-11-10 18:56 | CP.PCM.PN ---
Subjective - Date & Time of Evaluation Date of Evaluation: 11/10/18 Time of Evaluation: 08:00 - Subjective Subjective: no fever on vent no distress IV antibiotics renewed Objective - Vital Signs/Intake and Output Vital Signs (last 24 hours): Temp Pulse Resp BP Pulse Ox 98.0 F 79 20 105/65 100 11/10/18 15:03 11/10/18 15:03 11/10/18 15:03 11/10/18 15:03 11/10/18 15:03 Intake and Output: 11/10/18 11/10/18 06:59 18:59 Intake Total 540 762 Output Total 485 1580 Balance 55 -818 - Medications Medications: Current Medications Ascorbic Acid (Vitamin C 500 Mg Tab) 1,000 mg NG DAILY [facility] Last Admin: 11/10/18 10:25 Dose: 1,000 mg Aspirin (Aspirin Chewable) 81 mg GT DAILY [facility] Last Admin: 11/10/18 10:24 Dose: 81 mg Dextrose (Dextrose 50% Inj) 0 ml IVP .STAT PRN; Protocol PRN Reason: Hypoglycemia Protocol Dextrose (Glutose 15) 0 gm PO .ONCE PRN; Protocol PRN Reason: Hypoglycemia Protocol Glucagon (Glucagen Diagnostic Kit) 0 mg IM .STAT PRN; Protocol PRN Reason: Hypoglycemia Protocol Cefepime HCl 1 gm/ Dextrose 50 mls @ 100 mls/hr IVPB Q12H [facility]; Protocol Last Admin: 11/10/18 09:00 Dose: 100 mls/hr Lactobacillus Acidophilus (Lactobacillus) 1 cap PO BID [facility] Last Admin: 11/10/18 17:44 Dose: 1 cap Methimazole (Tapazole) 10 mg PO Q8 [facility] Last Admin: 11/10/18 13:25 Dose: 10 mg Metoclopramide HCl (Reglan) 10 mg IVP Q6H [facility] Last Admin: 11/10/18 16:21 Dose: 10 mg Midodrine (Proamatine) 10 mg PO TID [facility] Last Admin: 11/10/18 17:49 Dose: 10 mg Modafinil (Provigil) 50 mg PO DAILY [facility] Last Admin: 11/10/18 10:31 Dose: 50 mg Multivitamins (Hexavitamin) 1 tab PEG DAILY [facility] Last Admin: 11/10/18 10:25 Dose: 1 tab Pantoprazole Sodium (Protonix Susp) 40 mg GT Q12H [facility] Last Admin: 11/10/18 10:15 Dose: 40 mg Polyethylene Glycol (Miralax) 17 gm PO BID [facility] Last Admin: 11/10/18 17:44 Dose: 17 gm Simethicone (Mylicon Chew Tab) 80 mg PO QID [facility] Last Admin: 11/10/18 17:49 Dose: 80 mg Sodium Bicarbonate (Sodium Bicarbonate Tab) 650 mg PO BID [facility] Last Admin: 11/10/18 17:44 Dose: 650 mg Tamsulosin HCl (Flomax) 0.4 mg PEG DAILY [facility] Last Admin: 11/10/18 10:25 Dose: 0.4 mg Vitamin A (Vitamin A & D Oint Ud Foilpak) 0.5 ea TOP DAILY [facility] Last Admin: 11/10/18 10:26 Dose: 0.5 ea - Labs Labs: 11/09/18 08:50 11/09/18 08:50 PT 13.3 SECONDS (9.7-12.2) H 10/23/18 06:05 INR 1.2 10/23/18 06:05 APTT 23 SECONDS (21-34) 10/02/18 06:10 - Constitutional Appears: Non-toxic, Confused, Cachectic, Chronically Ill - Head Exam Head Exam: NORMOCEPHALIC - Eye Exam Eye Exam: absent: Scleral icterus - ENT Exam ENT Exam: Mucous Membranes Dry - Neck Exam Neck Exam: absent: Lymphadenopathy - Respiratory Exam Respiratory Exam: Decreased Breath Sounds - Cardiovascular Exam Cardiovascular Exam: REGULAR RHYTHM - GI/Abdominal Exam GI & Abdominal Exam: Distended, Soft Assessment and Plan (1) NEHA (acute kidney injury) Status: Acute (2) Acute renal failure Status: Acute (3) Acute respiratory failure Status: Acute (4) Aspiration pneumonia Status: Acute (5) Septic shock Status: Acute (6) Urinary tract infection Status: Acute (7) Diabetes mellitus Status: Chronic (8) Anoxic brain damage Status: Acute - Assessment and Plan (Free Text) Assessment: renew IV cefepime cont rx follow up CXR
--- NOTE | 2018-11-11 03:32 | CP.PCM.PN ---
<PedroBoneetu - Last Filed: 11/11/18 03:29> Subjective - Date & Time of Evaluation Date of Evaluation: 11/11/18 Time of Evaluation: 03:29 - Subjective Subjective: PGY-1 Medicine Progress Note for Dr. Nesbitt's service S/E at bedside Limited ROS due to clinical condition Objective - Vital Signs/Intake and Output Vital Signs (last 24 hours): Temp Pulse Resp BP Pulse Ox 98 F 79 20 107/66 100 11/10/18 23:30 11/10/18 23:30 11/10/18 23:30 11/10/18 23:30 11/10/18 23:30 Intake and Output: 11/10/18 11/11/18 18:59 06:59 Intake Total 762 250 Output Total 1580 380 Balance -818 -130 - Medications Medications: Current Medications Ascorbic Acid (Vitamin C 500 Mg Tab) 1,000 mg NG DAILY [facility] Last Admin: 11/10/18 10:25 Dose: 1,000 mg Aspirin (Aspirin Chewable) 81 mg GT DAILY [facility] Last Admin: 11/10/18 10:24 Dose: 81 mg Dextrose (Dextrose 50% Inj) 0 ml IVP .STAT PRN; Protocol PRN Reason: Hypoglycemia Protocol Dextrose (Glutose 15) 0 gm PO .ONCE PRN; Protocol PRN Reason: Hypoglycemia Protocol Glucagon (Glucagen Diagnostic Kit) 0 mg IM .STAT PRN; Protocol PRN Reason: Hypoglycemia Protocol Cefepime HCl 1 gm/ Dextrose 50 mls @ 100 mls/hr IVPB Q12H [facility]; Protocol Last Admin: 11/10/18 22:25 Dose: 100 mls/hr Lactobacillus Acidophilus (Lactobacillus) 1 cap PO BID [facility] Last Admin: 11/10/18 17:44 Dose: 1 cap Methimazole (Tapazole) 10 mg PO Q8 [facility] Last Admin: 11/10/18 22:06 Dose: 10 mg Metoclopramide HCl (Reglan) 10 mg IVP Q6H [facility] Last Admin: 11/11/18 03:01 Dose: 10 mg Midodrine (Proamatine) 10 mg PO TID [facility] Last Admin: 11/10/18 17:49 Dose: 10 mg Modafinil (Provigil) 50 mg PO DAILY [facility] Last Admin: 11/10/18 10:31 Dose: 50 mg Multivitamins (Hexavitamin) 1 tab PEG DAILY [facility] Last Admin: 11/10/18 10:25 Dose: 1 tab Pantoprazole Sodium (Protonix Susp) 40 mg GT Q12H [facility] Last Admin: 11/10/18 22:06 Dose: 40 mg Polyethylene Glycol (Miralax) 17 gm PO BID [facility] Last Admin: 11/10/18 17:44 Dose: 17 gm Simethicone (Mylicon Chew Tab) 80 mg PO QID [facility] Last Admin: 11/10/18 22:06 Dose: 80 mg Sodium Bicarbonate (Sodium Bicarbonate Tab) 650 mg PO BID [facility] Last Admin: 11/10/18 17:44 Dose: 650 mg Tamsulosin HCl (Flomax) 0.4 mg PEG DAILY [facility] Last Admin: 11/10/18 10:25 Dose: 0.4 mg Vitamin A (Vitamin A & D Oint Ud Foilpak) 0.5 ea TOP DAILY [facility] Last Admin: 11/10/18 10:26 Dose: 0.5 ea - Labs Labs: 11/09/18 08:50 11/09/18 08:50 PT 13.3 SECONDS (9.7-12.2) H 10/23/18 06:05 INR 1.2 10/23/18 06:05 APTT 23 SECONDS (21-34) 10/02/18 06:10 - Constitutional Appears: Chronically Ill - Head Exam Head Exam: NORMAL INSPECTION, NORMOCEPHALIC - Eye Exam Eye Exam: absent: Nystagmus, Scleral icterus - ENT Exam ENT Exam: Mucous Membranes Dry - Neck Exam Additional comments: trach with vent in place - Respiratory Exam Respiratory Exam: NORMAL BREATHING PATTERN - Cardiovascular Exam Cardiovascular Exam: REGULAR RHYTHM, +S1, +S2 - GI/Abdominal Exam GI & Abdominal Exam: Soft, Normal Bowel Sounds. absent: Distended, Firm, Guarding, Rigid, Tenderness, Hyperactive Bowel Sounds Additional comments: noted PEG tube in place w dressing c/d/i - Exam Additional comments: mcintyre in place - Extremities Exam Extremities Exam: Normal Inspection. absent: Calf Tenderness, Pedal Edema - Neurological Exam Neurological Exam: absent: Alert, Oriented x3 - Skin Skin Exam: Dry, Normal Color Additional comments: [address] outputting fluid Assessment and Plan - Assessment and Plan (Free Text) Assessment: This is a 52 yo female originally admitted to the ICU for septic shock 2/2 to PNA/UTI worsened by cardiac arrest and anoxic brain injury. Patient found to have apical thrombus in heart. Patient is s/p trach and PEG. Patient still unable to be weaned off vent. She has had multiple complications, including DVT and infections (PNA, UTI). s/p IVC filter 08/23. s/p multiple chest tube placements Sep 19-Oct 21. s/p LP 09/15. Patient has shown minimal improvement of cognitive function during the course of this hospitalization. Patient does not have any insurance and therefore cannot be placed in rehab/NH. Multiple conversations with regarding poor prognosis- he wishes to keep her full code. Palliative and pastoral care have been on board. Plan: Altered mental status/Encephalopathy- suspect anoxic encephalopathy - Code Blue 07/10 and 07/20 - Moved to [facility] floor 11/08 - Chest tubes x2 in place - Off sedation - Modafinil 50 mg PO daily - CT head (08/28/18): No hemorrhage or midline shift - MRI brain (09/08/18): No definite mass effect or suspicious extra axial collection. No evidence of acute or subacute brain infarction at this time. Borderline pattern of hydrocephalus. - LP 09/15/18: normal opening pressure - LDH 30, glucose 69, tot prot 67 - CSF Cx: no growth - Other CSF studies pending- called lab 11/01, they will contact [facility] for update - Neurology consulted (George/Ankit) Acute respiratory failure- s/p trach on vent, unable to wean - Tracheostomy 07/24/18, s/p bronchoscopy 08/23 - Patient had tolerated trach collars in early Aug 2018; however she has been on vent to trach since. Fi02: 40% - Bronchoscopy (08/23/18) by Dr. Lozada - Bronchial washings: Pseudomonas Aeruginosa - Fungal Cx: negative - Mycobacterial Cx: negative - Chest physiotherapy - Most recent CT chest (10/27/18): Large bilateral pleural effusions and associated consolidations. Trace pericardial effusion. Borderline cardiomegaly. Enlarged heterogeneous partially imaged thyroid gland. - Monitor CO2 - ABG on FiO2 40 (11/02/18): pH 7.34, pCO2 29, pO2 106 - Start Sodium bicarb 650 mg PEG BID - Pulmonary consulted (Neville) Distended abdomen- resolving BM yesterday - AXR (10/28/18): Nonspecific bowel gas pattern with relative paucity of bowel gas. - Repeat AXR (11/02/18): Normal bowel gas pattern. - PEG tube feeds @ 30 - Residuals noted per nursing , 200ml, flushed, given reglan 10 and lowed tube feeds to 30 - Increase Reglan to 10 mg IV Q6H - Miralax PEG BID - Simethicone 80 mg PEG QID Upper Extremity swelling bilateral - f/u upper ext dopplers : neg - holding anticoags due to vaginal bleeding Pleural effusions- s/p bilateral chest tubes - Multiple chest tubes and thoracenteses for effusions, most recent s/p bilateral chest tubes 10/27 - Pleural fluid from 10/13/18 - WBC 794, RBC 2083, tot cells 100, neutrophils 87% - Tot prot<3, LDH 145, glucose 146 - CT chest (10/27/18): Placment of 8.5 [place] pigtail drainage catheter within right and left pleural space - Most recent CXR (10/31/18): Status post bilateral chest tube placements. Marked reduction of bilateral pleural effusions, commensurate re-expansion of both lungs. - Repeat CXR 11/02: Worsening pulmonary edema - Discontinue IVF - IR consulted (Partha) - Pulmonology consulted (Neville) Thyroid disorder - Thyroid US (07/16/18): Heterogeneous thyroid echotexture. Numerous nodules as described above. Suggest percutaneous biopsy of the following suspicious nodules; 1.8 x 0.9 x 1.7 cm right lower pole nodule, 1.0 x 0.7 x 0.9 cm right upper pole lesion with intracystic vascular nodule, complex left upper pole nodu le measuring 2.1 x 1.5 x 1.8 cm. - Note: Initial thyroid studies taken before amiodarone was given- this is NOT amiodarone induced - TSH <0.02 in 07/2018, 10/31/18 TSH 18.10 - Free T4 >3 in 07/2018, 10/31/2018 free T4 0.24 - Recheck TSH, free T4 on 11/08/18 - Methimazole to 10 mg PO Q8H - Off Propranolol 5 mg PO TID due to hypotension - Endocrinology consulted (Irwin) Hypotension, improved, stable - Remains stable in 100s-120s/50s-60s - Monitor albumin, administer PRN doses - Midodrine 10 mg PEG TID Atrial fibrillation RVR (resolved) - EKG (10/29/18): Afib HR 130 - Cardiology consulted (Nolan) Deconditioning - Patient needs aggressive continued PT/OT- PT signed off as patient does not follow directions - Nursing and move patient OOB to chair - Social work note (08/09/18): patient is undocumented, has not health insurance, discharge planning will be at home with Septic Shock 2/2 Pneumonia and Urinary Tract Infection (VRE and Pseudomonas)- urinary retention - Off pressors (previously on 3) - Mild leukocytosis (12.4) - Afebrile since 10/21/18 - Procal 1.49 on 11/01/18, 0.66 on 10/21/18 - CXR (11/02/18): worsening pulmonary edema - Most recent blood cultures negative - Most recent urine cultures (10/21/18) +VRE/Pseudomonas, suspect patient likely colonized - Mcintyre in place - Midline removed 11/01/18 - Flomax 0.4 mg PEG daily - Cefepime 1 g Q12H- started 10/27 - ID consulted (Vinod) Anemia 2/2 to Chronic Diseases +/- Dysfunctional uterine bleeding, stable - Stool occult blood negative - Iron normal, TIBC low, Iron saturation normal, Ferritin normal - B12, folate normal - Vaginal US: thickened endometrium - Transfused pRBC: 1 unit 07/22/18, 2 units 08/13/18, 1 unit 08/17/18, 1 unit 08/23/18 - OBGYN consulted (Gilberto)- no hysterectomy Apical thrombus - Echo (07/07/18) before cardiac arrest: EF 40-45% - Echo (07/10/19) after cardiac arrest: EF 40%, LV large apical hypokinesis, large 30x20 mm soft tissue apical sessile mass suggestive of thrombus - Echo (08/17/19): LV clot, no significant change - Too high risk for HUBERT - Previously on heparin gtt, Eliquis- stopped due to anemia and vaginal bleeding - ASA 81 mg PEG daily LLE Deep vein thrombosis s/p IVC filter - Venous Doppler (07/18/18): Acute thrombosis of the left common femoral and femoral veins with severe reduction of the venous return - Resolved on repeat imaging - Previously on heparin gtt, Eliquis- stopped due to anemia and vaginal bleeding - s/p IVC filter on 08/23/18 - Vasc surgery consulted (Vicky) Type 2 diabetes mellitus, chronic - A1c: 7.8 - Hypoglycemia protocol - Accuchecks Q6H Vtach- Code blue x2 (07/10/18) - Previously on amiodarone ggt - Cardiology consulted (Nolan) Acute kidney failure, resolved - Required dialysis early in admission before code blues - Monitor BUN, Cr Shock liver, resolved - Hepatitis panel negative - HIV negative - Monitor LFTs Ppx: VTE: SCDs GI: Protonix 40mg PEG Q12H PEG: [facility] goal rate 40 mL/hr- feeds restarted 2/ * Lactobacillus 1 cap PEG Q12H * Multivitamin PEG daily * Vitamin C 1,000 PEG daily * Vitamin A&E Code status: full code- Palliative consulted <[place] Nesbitt - Last Filed: 11/12/18 17:30> Objective - Vital Signs/Intake and Output Vital Signs (last 24 hours): Temp Pulse Resp BP Pulse Ox 97.8 F 96 H 20 112/68 98 11/12/18 16:31 11/12/18 16:31 11/12/18 16:31 11/12/18 16:31 11/12/18 16:31 Intake and Output: 11/12/18 11/12/18 06:59 18:59 Intake Total 1092 Output Total 500 Balance 592 - Medications Medications: Current Medications Ascorbic Acid (Vitamin C 500 Mg Tab) 1,000 mg NG DAILY [facility] Last Admin: 11/12/18 09:56 Dose: 1,000 mg Aspirin (Aspirin Chewable) 81 mg GT DAILY [facility] Last Admin: 11/12/18 09:57 Dose: 81 mg Dextrose (Dextrose 50% Inj) 0 ml IVP .STAT PRN; Protocol PRN Reason: Hypoglycemia Protocol Dextrose (Glutose 15) 0 gm PO .ONCE PRN; Protocol PRN Reason: Hypoglycemia Protocol Glucagon (Glucagen Diagnostic Kit) 0 mg IM .STAT PRN; Protocol PRN Reason: Hypoglycemia Protocol Cefepime HCl 1 gm/ Dextrose 50 mls @ 100 mls/hr IVPB Q12H [facility]; Protocol Last Admin: 11/12/18 09:55 Dose: 100 mls/hr Lactobacillus Acidophilus (Lactobacillus) 1 cap PO BID [facility] Last Admin: 11/12/18 09:57 Dose: 1 cap Methimazole (Tapazole) 10 mg PO Q8 [facility] Last Admin: 11/12/18 05:46 Dose: 10 mg Metoclopramide HCl (Reglan) 10 mg IVP Q6H [facility] Last Admin: 11/12/18 09:57 Dose: 10 mg Midodrine (Proamatine) 10 mg PO TID [facility] Last Admin: 11/12/18 10:01 Dose: 10 mg Modafinil (Provigil) 50 mg PO DAILY [facility] Last Admin: 11/12/18 09:57 Dose: 50 mg Multivitamins (Hexavitamin) 1 tab PEG DAILY [facility] Last Admin: 11/12/18 09:56 Dose: 1 tab Pantoprazole Sodium (Protonix Susp) 40 mg GT Q12H [facility] Last Admin: 11/12/18 09:56 Dose: 40 mg Polyethylene Glycol (Miralax) 17 gm PO BID [facility] Last Admin: 11/12/18 14:10 Dose: 17 gm Simethicone (Mylicon Chew Tab) 80 mg PO QID [facility] Last Admin: 11/12/18 14:10 Dose: 80 mg Sodium Bicarbonate (Sodium Bicarbonate Tab) 650 mg PO BID [facility] Last Admin: 11/12/18 09:57 Dose: 650 mg Tamsulosin HCl (Flomax) 0.4 mg PEG DAILY [facility] Last Admin: 11/12/18 09:57 Dose: 0.4 mg Vitamin A (Vitamin A & D Oint Ud Foilpak) 0.5 ea TOP DAILY [facility] Last Admin: 11/12/18 09:56 Dose: 0.5 ea - Labs Labs: 11/11/18 07:02 11/11/18 07:02 PT 13.3 SECONDS (9.7-12.2) H 10/23/18 06:05 INR 1.2 10/23/18 06:05 APTT 23 SECONDS (21-34) 10/02/18 06:10 Attending/Attestation - Attestation I have personally seen and examined this patient.: Yes I have fully participated in the care of the patient.: Yes I have reviewed all pertinent clinical information, including history, physical exam and plan: Yes Notes (Text): 11/12/18 17:30 This is a late entry. Care of this patient was gone over with resident Dr. Vasquez. [place] Nesbitt D.O.
[2018-11-11 07:27] LABS: BASO % 0.5 % (0.0-2.0); EOS # 0.3 K/uL (0.0-0.7); EOS % 3.5 % (0.0-4.0); HEMOGLOBIN 8.2 g/dL (11.0-16.0); LYMPH # 1.1 K/uL (1.0-4.3); LYMPH % 11.8 % (20.0-40.0); MEAN CELL VOLUME 89.5 fL (81.0-99.0); MEAN CORPUSCULAR HEMOGLOBIN 30.3 pg (27.0-31.0); MEAN CORPUSCULAR HGB CONC 33.9 g/dL (33.0-37.0); MEAN PLATELET VOLUME 8.2 fL (7.2-11.7); MONO # 0.5 K/uL (0.0-0.8); MONO % 4.9 % (0.0-10.0); NEUT # 7.6 K/uL (1.8-7.0); NEUT % 79.3 % (50.0-75.0); NRBC % 0.1 % (0.0-2.0); RBC 2.69 Mil/uL (3.80-5.20); RED CELL DISTRIBUTION WIDTH 20.9 % (11.5-14.5); WHITE BLOOD COUNT 9.6 K/uL (4.8-10.8)
[2018-11-11] MEDS ORDERED: Sodium Chloride 0.9% 500 ML IV ONE (07:37)
[2018-11-11 07:55] LABS: ALB/GLOB RATIO 0.8 (1.0-2.1); ALBUMIN 2.3 g/dL (3.5-5.0); ALT/SGPT 15 U/L (9-52); AST/SGOT 40 U/L (14-36); BLOOD UREA NITROGEN 28 mg/dL (7-17); CALCIUM 8.1 mg/dl (8.6-10.4); GFR NON-AFRICAN AMERICAN > 60
[2018-11-11] MEDS: Modafinil 50 MG TAB PO SCH (10:06)
[2018-11-11] MEDS: Simethicone 80 mg Chewtab PO SCH ×4 (10:06→21:52)
[2018-11-11] MEDS: Lactobacillus Acidophilus 500 MU Cap PO SCH ×2 (10:06→17:09)
[2018-11-11] MEDS: Pantoprazole 40 mg Susp UD GT SCH ×2 (10:06→21:52)
[2018-11-11] MEDS: Multiple Vitamins Tab PEG SCH (10:06)
[2018-11-11] MEDS: Vitamins A & D Oint UD Foilpak TOP SCH (10:06)
[2018-11-11] MEDS: POLYETHYLENE GLYCOL 3350 17 GM/Dose PACKET PO SCH ×2 (10:08→17:09)
--- NOTE | 2018-11-12 00:43 | CP.PCM.PN ---
<Neema Vasquez - Last Filed: 11/12/18 00:37> Subjective - Date & Time of Evaluation Date of Evaluation: 11/12/18 Time of Evaluation: 00:38 - Subjective Subjective: PGY-1 Medicine Progress Note for Dr. Hendrix's service S/E at bedside. Limited ROS 2/2 patient clinical condition Episode of hypotension reported by morning team which resolved with 500ml bolus of NS Objective - Vital Signs/Intake and Output Vital Signs (last 24 hours): Temp Pulse Resp BP Pulse Ox 98.5 F 94 H 20 113/69 99 11/11/18 16:00 11/11/18 16:00 11/11/18 16:00 11/11/18 16:00 11/11/18 16:00 Intake and Output: 11/11/18 11/12/18 18:59 06:59 Intake Total 1146 Output Total 430 Balance 716 - Medications Medications: Current Medications Ascorbic Acid (Vitamin C 500 Mg Tab) 1,000 mg NG DAILY [facility] Last Admin: 11/11/18 10:08 Dose: 1,000 mg Aspirin (Aspirin Chewable) 81 mg GT DAILY [facility] Last Admin: 11/11/18 10:06 Dose: 81 mg Dextrose (Dextrose 50% Inj) 0 ml IVP .STAT PRN; Protocol PRN Reason: Hypoglycemia Protocol Dextrose (Glutose 15) 0 gm PO .ONCE PRN; Protocol PRN Reason: Hypoglycemia Protocol Glucagon (Glucagen Diagnostic Kit) 0 mg IM .STAT PRN; Protocol PRN Reason: Hypoglycemia Protocol Cefepime HCl 1 gm/ Dextrose 50 mls @ 100 mls/hr IVPB Q12H [facility]; Protocol Last Admin: 11/11/18 21:53 Dose: 100 mls/hr Lactobacillus Acidophilus (Lactobacillus) 1 cap PO BID [facility] Last Admin: 11/11/18 17:09 Dose: 1 cap Methimazole (Tapazole) 10 mg PO Q8 [facility] Last Admin: 11/11/18 21:52 Dose: 10 mg Metoclopramide HCl (Reglan) 10 mg IVP Q6H [facility] Last Admin: 11/11/18 22:16 Dose: 10 mg Midodrine (Proamatine) 10 mg PO TID [facility] Last Admin: 11/11/18 17:09 Dose: 10 mg Modafinil (Provigil) 50 mg PO DAILY [facility] Last Admin: 11/11/18 10:06 Dose: 50 mg Multivitamins (Hexavitamin) 1 tab PEG DAILY [facility] Last Admin: 11/11/18 10:06 Dose: 1 tab Pantoprazole Sodium (Protonix Susp) 40 mg GT Q12H [facility] Last Admin: 11/11/18 21:52 Dose: 40 mg Polyethylene Glycol (Miralax) 17 gm PO BID [facility] Last Admin: 11/11/18 17:09 Dose: 17 gm Simethicone (Mylicon Chew Tab) 80 mg PO QID [facility] Last Admin: 11/11/18 21:52 Dose: 80 mg Sodium Bicarbonate (Sodium Bicarbonate Tab) 650 mg PO BID [facility] Last Admin: 11/11/18 17:09 Dose: 650 mg Tamsulosin HCl (Flomax) 0.4 mg PEG DAILY [facility] Last Admin: 11/11/18 10:06 Dose: 0.4 mg Vitamin A (Vitamin A & D Oint Ud Foilpak) 0.5 ea TOP DAILY [facility] Last Admin: 11/11/18 10:06 Dose: 0.5 ea - Labs Labs: 11/11/18 07:02 11/11/18 07:02 PT 13.3 SECONDS (9.7-12.2) H 10/23/18 06:05 INR 1.2 10/23/18 06:05 APTT 23 SECONDS (21-34) 10/02/18 06:10 - Additional Findings Additional findings: - Constitutional Appears: Chronically Ill - Head Exam Head Exam: NORMAL INSPECTION, NORMOCEPHALIC - Eye Exam Eye Exam: absent: Nystagmus, Scleral icterus - ENT Exam ENT Exam: Mucous Membranes Dry - Neck Exam Additional comments: trach with vent in place - Respiratory Exam Respiratory Exam: NORMAL BREATHING PATTERN - Cardiovascular Exam Cardiovascular Exam: REGULAR RHYTHM, +S1, +S2 - GI/Abdominal Exam GI & Abdominal Exam: Soft, Normal Bowel Sounds. absent: Distended, Firm, Guarding, Rigid, Tenderness, Hyperactive Bowel Sounds Additional comments: noted PEG tube in place w dressing c/d/i - Exam Additional comments: mcintyre in place - Extremities Exam Extremities Exam: Normal Inspection. absent: Calf Tenderness, Pedal Edema - Neurological Exam Neurological Exam: absent: Alert, Oriented x3 - Skin Skin Exam: Dry, Normal Color Additional comments: [address] outputting fluid noted skin tear on buttock region, addressed with medihoney and optifoam dressing Assessment and Plan - Assessment and Plan (Free Text) Assessment: This is a 52 yo female originally admitted to the ICU for septic shock 2/2 to PNA/UTI worsened by cardiac arrest and anoxic brain injury. Patient found to have apical thrombus in heart. Patient is s/p trach and PEG. Patient still unable to be weaned off vent. She has had multiple complications, including DVT and infections (PNA, UTI). s/p IVC filter 08/23. s/p multiple chest tube placements Sep 19-Oct 21. s/p LP 09/15. Patient has shown minimal improvement of cognitive function during the course of this hospitalization. Patient does not have any insurance and therefore cannot be placed in rehab/NH. Multiple conversations with regarding poor prognosis- he wishes to keep her full code. Palliative and pastoral care have been on board. Altered mental status/Encephalopathy- suspect anoxic encephalopathy - Code Blue 07/10 and 07/20 - Moved to [facility] floor 11/08 - Chest tubes x2 in place - Off sedation - Modafinil 50 mg PO daily - CT head (08/28/18): No hemorrhage or midline shift - MRI brain (09/08/18): No definite mass effect or suspicious extra axial collection. No evidence of acute or subacute brain infarction at this time. Borderline pattern of hydrocephalus. - LP 09/15/18: normal opening pressure - LDH 30, glucose 69, tot prot 67 - CSF Cx: no growth - Other CSF studies pending- called lab 11/01, they will contact [facility] for update - Neurology consulted (George/Ankit) Acute respiratory failure- s/p trach on vent, unable to wean - Tracheostomy 07/24/18, s/p bronchoscopy 08/23 - Patient had tolerated trach collars in early Aug 2018; however she has been on vent to trach since. Fi02: 40% - Bronchoscopy (08/23/18) by Dr. Lozada - Bronchial washings: Pseudomonas Aeruginosa - Fungal Cx: negative - Mycobacterial Cx: negative - Chest physiotherapy - Most recent CT chest (10/27/18): Large bilateral pleural effusions and associated consolidations. Trace pericardial effusion. Borderline cardiomegaly. Enlarged heterogeneous partially imaged thyroid gland. - Monitor CO2 - ABG on FiO2 40 (11/02/18): pH 7.34, pCO2 29, pO2 106 - Start Sodium bicarb 650 mg PEG BID - Pulmonary consulted (Neville) Distended abdomen- resolving BM yesterday - AXR (10/28/18): Nonspecific bowel gas pattern with relative paucity of bowel gas. - Repeat AXR (11/02/18): Normal bowel gas pattern. - PEG tube feeds goal rate 40:P[facility]mocare - Reglan 10 mg IV Q6H - Miralax PEG BID - Simethicone 80 mg PEG QID Upper Extremity swelling bilateral - f/u upper ext dopplers : neg - holding anticoags due to vaginal bleeding Pleural effusions- s/p bilateral chest tubes - Multiple chest tubes and thoracenteses for effusions, most recent s/p bilateral chest tubes 10/27 - Pleural fluid from 10/13/18 - WBC 794, RBC 2083, tot cells 100, neutrophils 87% - Tot prot<3, LDH 145, glucose 146 - CT chest (10/27/18): Placment of 8.5 [place] pigtail drainage catheter within right and left pleural space - Most recent CXR (10/31/18): Status post bilateral chest tube placements. Marked reduction of bilateral pleural effusions, commensurate re-expansion of both lungs. - Repeat CXR 11/02: Worsening pulmonary edema - Discontinue IVF - IR consulted (Partha) - Pulmonology consulted (Neville) Thyroid disorder - Thyroid US (07/16/18): Heterogeneous thyroid echotexture. Numerous nodules as described above. Suggest percutaneous biopsy of the following suspicious nodules; 1.8 x 0.9 x 1.7 cm right lower pole nodule, 1.0 x 0.7 x 0.9 cm right upper pole lesion with intracystic vascular nodule, complex left upper pole nodule measuring 2.1 x 1.5 x 1.8 cm. - Note: Initial thyroid studies taken before amiodarone was given- this is NOT amiodarone induced - TSH <0.02 in 07/2018, 10/31/18 TSH 18.10 - Free T4 >3 in 07/2018, 10/31/2018 free T4 0.24 - Recheck TSH, free T4 on 11/08/18 - Methimazole to 10 mg PO Q8H - Off Propranolol 5 mg PO TID due to hypotension - Endocrinology consulted (Irwin) Hypotension, improved, stable - Remains stable in 100s-120s/50s-60s - Monitor albumin, administer PRN doses - Midodrine 10 mg PEG TID Atrial fibrillation RVR (resolved) - EKG (10/29/18): Afib HR 130 - Cardiology consulted (Nolan) Deconditioning - Patient needs aggressive continued PT/OT- PT signed off as patient does not follow directions - Nursing and move patient OOB to chair - Social work note (08/09/18): patient is undocumented, has not health insurance, discharge planning will be at home with Septic Shock 2/2 Pneumonia and Urinary Tract Infection (VRE and Pseudomonas)- urinary retention - Off pressors (previously on 3) - Mild leukocytosis (12.4) - Afebrile since 10/21/18 - Procal 1.49 on 11/01/18, 0.66 on 10/21/18 - CXR (11/02/18): worsening pulmonary edema - Most recent blood cultures negative - Most recent urine cultures (10/21/18) +VRE/Pseudomonas, suspect patient likely colonized - Mcintyre in place - Midline removed 11/01/18 - Flomax 0.4 mg PEG daily - Cefepime 1 g Q12H- started 10/27 - ID consulted (Vinod) Anemia 2/2 to Chronic Diseases +/- Dysfunctional uterine bleeding, stable - Stool occult blood negative - Iron normal, TIBC low, Iron saturation normal, Ferritin normal - B12, folate normal - Vaginal US: thickened endometrium - Transfused pRBC: 1 unit 07/22/18, 2 units 08/13/18, 1 unit 08/17/18, 1 unit 08/23/18 - OBGYN consulted (Gilberto)- no hysterectomy Apical thrombus - Echo (07/07/18) before cardiac arrest: EF 40-45% - Echo (07/10/19) after cardiac arrest: EF 40%, LV large apical hypokinesis, large 30x20 mm soft tissue apical sessile mass suggestive of thrombus - Echo (08/17/19): LV clot, no significant change - Too high risk for HUBERT - Previously on heparin gtt, Eliquis- stopped due to anemia and vaginal bleeding - ASA 81 mg PEG daily LLE Deep vein thrombosis s/p IVC filter - Venous Doppler (07/18/18): Acute thrombosis of the left common femoral and femoral veins with severe reduction of the venous return - Resolved on repeat imaging - Previously on heparin gtt, Eliquis- stopped due to anemia and vaginal bleeding - s/p IVC filter on 08/23/18 - Vasc surgery consulted (Vicky) Type 2 diabetes mellitus, chronic - A1c: 7.8 - Hypoglycemia protocol - Accuchecks Q6H Vtach- Code blue x2 (07/10/18) - Previously on amiodarone ggt - Cardiology consulted (Nolan) Acute kidney failure, resolved - Required dialysis early in admission before code blues - Monitor BUN, Cr Shock liver, resolved - Hepatitis panel negative - HIV negative - Monitor LFTs Ppx: VTE: SCDs GI: Protonix 40mg PEG Q12H PEG: Pulmocare goal rate 40 mL/hr- feeds restarted 2/2 * Lactobacillus 1 cap PEG Q12H * Multivitamin PEG daily * Vitamin C 1,000 PEG daily * Vitamin A&E Code status: full code- Palliative consulted PGY-1 Neema Vasquez Medical Management d/w Dr. hendrix <[place] Hendrix - Last Filed: 11/12/18 17:25> Objective - Vital Signs/Intake and Output Vital Signs (last 24 hours): Temp Pulse Resp BP Pulse Ox 97.8 F 96 H 20 112/68 98 11/12/18 16:31 11/12/18 16:31 11/12/18 16:31 11/12/18 16:31 11/12/18 16:31 Intake and Output: 11/12/18 11/12/18 06:59 18:59 Intake Total 1092 Output Total 500 Balance 592 - Medications Medications: Current Medications Ascorbic Acid (Vitamin C 500 Mg Tab) 1,000 mg NG DAILY [facility] Last Admin: 11/12/18 09:56 Dose: 1,000 mg Aspirin (Aspirin Chewable) 81 mg GT DAILY [facility] Last Admin: 11/12/18 09:57 Dose: 81 mg Dextrose (Dextrose 50% Inj) 0 ml IVP .STAT PRN; Protocol PRN Reason: Hypoglycemia Protocol Dextrose (Glutose 15) 0 gm PO .ONCE PRN; Protocol PRN Reason: Hypoglycemia Protocol Glucagon (Glucagen Diagnostic Kit) 0 mg IM .STAT PRN; Protocol PRN Reason: Hypoglycemia Protocol Cefepime HCl 1 gm/ Dextrose 50 mls @ 100 mls/hr IVPB Q12H [facility]; Protocol Last Admin: 11/12/18 09:55 Dose: 100 mls/hr Lactobacillus Acidophilus (Lactobacillus) 1 cap PO BID [facility] Last Admin: 11/12/18 09:57 Dose: 1 cap Methimazole (Tapazole) 10 mg PO Q8 [facility] Last Admin: 11/12/18 05:46 Dose: 10 mg Metoclopramide HCl (Reglan) 10 mg IVP Q6H [facility] Last Admin: 11/12/18 09:57 Dose: 10 mg Midodrine (Proamatine) 10 mg PO TID [facility] Last Admin: 11/12/18 10:01 Dose: 10 mg Modafinil (Provigil) 50 mg PO DAILY [facility] Last Admin: 11/12/18 09:57 Dose: 50 mg Multivitamins (Hexavitamin) 1 tab PEG DAILY [facility] Last Admin: 11/12/18 09:56 Dose: 1 tab Pantoprazole Sodium (Protonix Susp) 40 mg GT Q12H [facility] Last Admin: 11/12/18 09:56 Dose: 40 mg Polyethylene Glycol (Miralax) 17 gm PO BID [facility] Last Admin: 11/12/18 14:10 Dose: 17 gm Simethicone (Mylicon Chew Tab) 80 mg PO QID [facility] Last Admin: 11/12/18 14:10 Dose: 80 mg Sodium Bicarbonate (Sodium Bicarbonate Tab) 650 mg PO BID [facility] Last Admin: 11/12/18 09:57 Dose: 650 mg Tamsulosin HCl (Flomax) 0.4 mg PEG DAILY [facility] Last Admin: 11/12/18 09:57 Dose: 0.4 mg Vitamin A (Vitamin A & D Oint Ud Foilpak) 0.5 ea TOP DAILY [facility] Last Admin: 11/12/18 09:56 Dose: 0.5 ea - Labs Labs: 11/11/18 07:02 11/11/18 07:02 PT 13.3 SECONDS (9.7-12.2) H 10/23/18 06:05 INR 1.2 10/23/18 06:05 APTT 23 SECONDS (21-34) 10/02/18 06:10 Attending/Attestation - Attestation I have personally seen and examined this patient.: Yes I have fully participated in the care of the patient.: Yes I have reviewed all pertinent clinical information, including history, physical exam and plan: Yes Notes (Text): 11/12/18 17:22 Patient was seen and examined at 4:00 PM Care of this patient was gone over with Dr. Vasquez. Patient has not had any output from either the right or left chest tubes for the past 2 nursing shifts as per my conversation with Nurse Kim. Chest Tubes to remain in place for now considering the patient's history of reaccumulation of pleural fluid despite multiple thoracentesis. Medicine Team will coordinate removal with the help of Preforms Laminator Dr. Lozada. Continue Cefepime antibiotic for now until chest tubes remain in place. [place] Hendrix D.O.
[2018-11-12] MEDS: Multiple Vitamins Tab PEG SCH (09:56)
[2018-11-12] MEDS: Pantoprazole 40 mg Susp UD GT SCH ×2 (09:56→22:04)
[2018-11-12] MEDS: Vitamins A & D Oint UD Foilpak TOP SCH (09:56)
[2018-11-12] MEDS: Modafinil 50 MG TAB PO SCH (09:57)
[2018-11-12] MEDS: Lactobacillus Acidophilus 500 MU Cap PO SCH ×2 (09:57→18:10)
[2018-11-12] MEDS: POLYETHYLENE GLYCOL 3350 17 GM/Dose PACKET PO SCH ×2 (14:10→18:07)
[2018-11-12] MEDS: Simethicone 80 mg Chewtab PO SCH ×3 (14:10→22:04)
--- NOTE | 2018-11-12 17:25 | CP.PCM.PCO ---
Physician Communication Note - Physician Communication Note Physician Communication Note: Please see above
[2018-11-13 07:35] LABS: BASO # 0.1 K/uL (0.0-0.2); BASO % 0.5 % (0.0-2.0); EOS # 0.3 K/uL (0.0-0.7); EOS % 2.9 % (0.0-4.0); HEMOGLOBIN 8.3 g/dL (11.0-16.0); LYMPH # 1.1 K/uL (1.0-4.3); LYMPH % 9.9 % (20.0-40.0); MEAN CORPUSCULAR HEMOGLOBIN 30.4 pg (27.0-31.0); MEAN CORPUSCULAR HGB CONC 34.1 g/dL (33.0-37.0); MEAN PLATELET VOLUME 8.3 fL (7.2-11.7); MONO # 0.5 K/uL (0.0-0.8); MONO % 5.1 % (0.0-10.0); NEUT # 8.7 K/uL (1.8-7.0); NEUT % 81.6 % (50.0-75.0); NRBC % 0.1 % (0.0-2.0); PLATELET COUNT 275 K/uL (130-400); RBC 2.72 Mil/uL (3.80-5.20); RED CELL DISTRIBUTION WIDTH 20.8 % (11.5-14.5); WHITE BLOOD COUNT 10.7 K/uL (4.8-10.8)
[2018-11-13 07:45] LABS: ALB/GLOB RATIO 0.8 (1.0-2.1); ALBUMIN 2.3 g/dL (3.5-5.0); ALT/SGPT 25 U/L (9-52); AST/SGOT 31 U/L (14-36); BLOOD UREA NITROGEN 28 mg/dL (7-17); CALCIUM 7.9 mg/dl (8.6-10.4); GFR NON-AFRICAN AMERICAN > 60
--- NOTE | 2018-11-13 08:30 | CP.PCM.PN ---
<Bhanu Villegas - Last Filed: 11/13/18 16:45> Subjective - Date & Time of Evaluation Date of Evaluation: 11/13/18 Time of Evaluation: 08:30 - Subjective Subjective: HOSPITALIST SERVICE Pt s/e at bedside, no complaints overnight as per nursing, however labs are difficult to draw, Pt to Get PICC Objective - Vital Signs/Intake and Output Vital Signs (last 24 hours): Temp Pulse Resp BP Pulse Ox 97.6 F 97 H 20 116/65 99 11/13/18 07:13 11/13/18 07:13 11/13/18 07:13 11/13/18 07:13 11/13/18 07:13 Intake and Output: 11/13/18 11/13/18 06:59 18:59 Intake Total 522 Output Total 180 Balance 342 - Medications Medications: Current Medications Albuterol/Ipratropium (Duoneb 3 Mg/0.5 Mg (3 Ml) Ud) 3 ml INH RQ6 [facility] Ascorbic Acid (Vitamin C 500 Mg Tab) 1,000 mg NG DAILY [facility] Last Admin: 11/12/18 09:56 Dose: 1,000 mg Aspirin (Aspirin Chewable) 81 mg GT DAILY [facility] Last Admin: 11/12/18 09:57 Dose: 81 mg Dextrose (Dextrose 50% Inj) 0 ml IVP .STAT PRN; Protocol PRN Reason: Hypoglycemia Protocol Dextrose (Glutose 15) 0 gm PO .ONCE PRN; Protocol PRN Reason: Hypoglycemia Protocol Glucagon (Glucagen Diagnostic Kit) 0 mg IM .STAT PRN; Protocol PRN Reason: Hypoglycemia Protocol Cefepime HCl 1 gm/ Dextrose 50 mls @ 100 mls/hr IVPB Q12H [facility]; Protocol Last Admin: 11/12/18 22:05 Dose: 100 mls/hr Lactobacillus Acidophilus (Lactobacillus) 1 cap PO BID [facility] Last Admin: 11/12/18 18:10 Dose: 1 cap Methimazole (Tapazole) 10 mg PO Q8 [facility] Last Admin: 11/13/18 06:41 Dose: 10 mg Metoclopramide HCl (Reglan) 10 mg IVP Q6H [facility] Last Admin: 11/13/18 03:52 Dose: 10 mg Midodrine (Proamatine) 10 mg PO TID [facility] Last Admin: 11/12/18 18:07 Dose: 10 mg Modafinil (Provigil) 50 mg PO DAILY [facility] Last Admin: 11/12/18 09:57 Dose: 50 mg Multivitamins (Hexavitamin) 1 tab PEG DAILY [facility] Last Admin: 11/12/18 09:56 Dose: 1 tab Pantoprazole Sodium (Protonix Susp) 40 mg GT Q12H [facility] Last Admin: 11/12/18 22:04 Dose: 40 mg Polyethylene Glycol (Miralax) 17 gm PO BID [facility] Last Admin: 11/12/18 18:07 Dose: 17 gm Simethicone (Mylicon Chew Tab) 80 mg PO QID [facility] Last Admin: 11/12/18 22:04 Dose: 80 mg Sodium Bicarbonate (Sodium Bicarbonate Tab) 650 mg PO BID [facility] Last Admin: 11/12/18 18:06 Dose: 650 mg Tamsulosin HCl (Flomax) 0.4 mg PEG DAILY [facility] Last Admin: 11/12/18 09:57 Dose: 0.4 mg Vitamin A (Vitamin A & D Oint Ud Foilpak) 0.5 ea TOP DAILY [facility] Last Admin: 11/12/18 09:56 Dose: 0.5 ea - Labs Labs: 11/13/18 07:04 11/13/18 07:04 PT 13.3 SECONDS (9.7-12.2) H 10/23/18 06:05 INR 1.2 10/23/18 06:05 APTT 23 SECONDS (21-34) 10/02/18 06:10 - Additional Findings Additional findings: - Constitutional Appears: Chronically Ill - Head Exam Head Exam: NORMAL INSPECTION, NORMOCEPHALIC - Eye Exam Eye Exam: absent: Nystagmus, Scleral icterus - ENT Exam ENT Exam: Mucous Membranes Dry - Neck Exam Additional comments: trach with vent in place - Respiratory Exam Respiratory Exam: NORMAL BREATHING PATTERN - Cardiovascular Exam Cardiovascular Exam: REGULAR RHYTHM, +S1, +S2 - GI/Abdominal Exam GI & Abdominal Exam: Soft, Normal Bowel Sounds. absent: Distended, Firm, Guarding, Rigid, Tenderness, Hyperactive Bowel Sounds Additional comments: noted PEG tube in place w dressing c/d/i - Exam Additional comments: mcintyre in place - Extremities Exam Extremities Exam: Normal Inspection. absent: Calf Tenderness, Pedal Edema - Neurological Exam Neurological Exam: absent: Alert, Oriented x3 - Skin Skin Exam: Dry, Normal Color Additional comments: [address] outputting fluid skin tear on buttock, dressed with medihoney and optifoam dressing Assessment and Plan - Assessment and Plan (Free Text) Assessment: This is a 52 yo female originally admitted to the ICU for septic shock 2/2 to PNA/UTI worsened by cardiac arrest and anoxic brain injury. Patient found to have apical thrombus in heart. Patient is s/p trach and PEG. Patient still unable to be weaned off vent. She has had multiple complications, including DVT and infections (PNA, UTI). s/p IVC filter 08/23. s/p multiple chest tube placements Sep 19-Oct 21. s/p LP 09/15. Patient has shown minimal improvement of cognitive function during the course of this hospitalization. Patient does not have any insurance and therefore cannot be placed in rehab/NH. Multiple conve rsations with regarding poor prognosis- he wishes to keep her full code. Palliative and pastoral care have been on board. Plan: Altered mental status/Encephalopathy- suspect anoxic encephalopathy - Code Blue 07/10 and 07/20 - Moved to [facility] floor 11/08 - Chest tubes x2 in place - Off sedation - Modafinil 50 mg PO daily - CT head (08/28/18): No hemorrhage or midline shift - MRI brain (09/08/18): No definite mass effect or suspicious extra axial collection. No evidence of acute or subacute brain infarction at this time. Borderline pattern of hydrocephalus. - LP 09/15/18: normal opening pressure - LDH 30, glucose 69, tot prot 67 - CSF Cx: no growth - Other CSF studies pending- called lab 11/01, they will contact [facility] for update - Neurology consulted (George/Ankit) Acute respiratory failure- s/p trach on vent, unable to wean - Tracheostomy 07/24/18, s/p bronchoscopy 08/23 - Patient had tolerated trach collars in early Aug 2018; however she has been on vent to trach since. Fi02: 40% - Bronchoscopy (08/23/18) by Dr. Lozada - Bronchial washings: Pseudomonas Aeruginosa - Fungal Cx: negative - Mycobacterial Cx: negative - Chest physiotherapy - Most recent CT chest (10/27/18): Large bilateral pleural effusions and associated consolidations. Trace pericardial effusion. Borderline cardiomegaly. Enlarged heterogeneous partially imaged thyroid gland. - Monitor CO2 - ABG on FiO2 40 (11/02/18): pH 7.34, pCO2 29, pO2 106 - Start Sodium bicarb 650 mg PEG BID - Pulmonary consulted (Neville) Distended abdomen- resolving BM yesterday - AXR (10/28/18): Nonspecific bowel gas pattern with relative paucity of bowel gas. - Repeat AXR (11/02/18): Normal bowel gas pattern. - PEG tube feeds goal rate 40:Pulmocare - Reglan 10 mg IV Q6H - Miralax PEG BID - Simethicone 80 mg PEG QID Upper Extremity swelling bilateral - f/u upper ext dopplers : neg - holding anticoags due to vaginal bleeding - Ordered PICC today however Dash was unable to get access after one attempt and does not want to try again, will consult IR Pleural effusions- s/p bilateral chest tubes - Multiple chest tubes and thoracenteses for effusions, most recent s/p bila teral chest tubes 10/27 - Pleural fluid from 10/13/18 - WBC 794, RBC 2083, tot cells 100, neutrophils 87% - Tot prot<3, LDH 145, glucose 146 - CT chest (10/27/18): Placment of 8.5 Syriac pigtail drainage catheter within right and left pleural space - Most recent CXR (10/31/18): Status post bilateral chest tube placements. Marked reduction of bilateral pleural effusions, commensurate re-expansion of both lungs. - Repeat CXR 11/02: Worsening pulmonary edema - Discontinue IVF - IR consulted (Partha) - Pulmonology consulted (Neville) Thyroid disorder - Thyroid US (07/16/18): Heterogeneous thyroid echotexture. Numerous nodules as described above. Suggest percutaneous biopsy of the following suspicious nodules; 1.8 x 0.9 x 1.7 cm right lower pole nodule, 1.0 x 0.7 x 0.9 cm right upper pole lesion with intracystic vascular nodule, complex left upper pole nodule measuring 2.1 x 1.5 x 1.8 cm. - Note: Initial thyroid studies taken before amiodarone was given- this is NOT amiodarone induced - TSH <0.02 in 07/2018, 10/31/18 TSH 18.10 - Free T4 >3 in 07/2018, 10/31/2018 free T4 0.24 - Recheck TSH, free T4 on 11/08/18 - Methimazole to 10 mg PO Q8H - Off Propranolol 5 mg PO TID due to hypotension - Endocrinology consulted (Irwin) Hypotension, improved, stable - Remains stable in 100s-120s/50s-60s - Monitor albumin, administer PRN doses - Midodrine 10 mg PEG TID Atrial fibrillation RVR (resolved) - EKG (10/29/18): Afib HR 130 - Cardiology consulted (Nolan) Deconditioning - Patient needs aggressive continued PT/OT- PT signed off as patient does not follow directions - Nursing and move patient OOB to chair - Social work note (08/09/18): patient is undocumented, has not health insurance, discharge planning will be at home with Septic Shock 2/2 Pneumonia and Urinary Tract Infection (VRE and Pseudomonas)- urinary retention - Off pressors (previously on 3) - Mild leukocytosis (12.4) - Afebrile since 10/21/18 - Procal 1.49 on 11/01/18, 0.66 on 10/21/18 - CXR (11/02/18): worsening pulmonary edema - Most recent blood cultures negative - Most recent urine cultures (10/21/18) +VRE/Pseudomonas, suspect patient likely colonized - Mcintyre in place - Midline removed 11/01/18 - PICC team unable to insert PICC line 11/13/18 - Flomax 0.4 mg PEG daily - Cefepime 1 g Q12H- started 10/27 - ID consulted (Vinod) Anemia 2/2 to Chronic Diseases +/- Dysfunctional uterine bleeding, stable - Stool occult blood negative - Iron normal, TIBC low, Iron saturation normal, Ferritin normal - B12, folate normal - Vaginal US: thickened endometrium - Transfused pRBC: 1 unit 07/22/18, 2 units 08/13/18, 1 unit 08/17/18, 1 unit 08/23/18 - OBGYN consulted (Gilberto)- no hysterectomy Apical thrombus - Echo (07/07/18) before cardiac arrest: EF 40-45% - Echo (07/10/19) after cardiac arrest: EF 40%, LV large apical hypokinesis, large 30x20 mm soft tissue apical sessile mass suggestive of thrombus - Echo (08/17/19): LV clot, no significant change - Too high risk for HUBERT - Previously on heparin gtt, Eliquis- stopped due to anemia and vaginal bleeding - ASA 81 mg PEG daily LLE Deep vein thrombosis s/p IVC filter - Venous Doppler (07/18/18): Acute thrombosis of the left common femoral and femoral veins with severe reduction of the venous return - Resolved on repeat imaging - Previously on heparin gtt, Eliquis- stopped due to anemia and vaginal bleeding - s/p IVC filter on 08/23/18 - Vasc surgery consulted (Vicky) Type 2 diabetes mellitus, chronic - A1c: 7.8 - Hypoglycemia protocol - Accuchecks Q6H Vtach- Code blue x2 (07/10/18) - Previously on amiodarone ggt - Cardiology consulted (Nolan) Acute kidney failure, resolved - Required dialysis early in admission before code blues - Monitor BUN, Cr Shock liver, resolved - Hepatitis panel negative - HIV negative - Monitor LFTs Ppx: VTE: SCDs GI: Protonix 40mg PEG Q12H PEG: Pulmocare goal rate 40 mL/hr- feeds restarted / * Lactobacillus 1 cap PEG Q12H * Multivitamin PEG daily * Vitamin C 1,000 PEG daily * Vitamin A&E Code status: full code- Palliative consulted Case reviewed with Dr. Leahy <Saira Leahy V - Last Filed: 11/13/18 20:57> Objective - Vital Signs/Intake and Output Vital Signs (last 24 hours): Temp Pulse Resp BP Pulse Ox 98.7 F 90 20 107/65 100 11/13/18 16:08 11/13/18 16:08 11/13/18 16:08 11/13/18 16:08 11/13/18 16:08 - Medications Medications: Current Medications Albuterol/Ipratropium (Duoneb 3 Mg/0.5 Mg (3 Ml) Ud) 3 ml INH RQ6 [facility] Last Admin: 11/13/18 20:24 Dose: 3 ml Ascorbic Acid (Vitamin C 500 Mg Tab) 1,000 mg NG DAILY [facility] Last Admin: 11/13/18 10:15 Dose: 1,000 mg Aspirin (Aspirin Chewable) 81 mg GT DAILY [facility] Last Admin: 11/13/18 10:15 Dose: 81 mg Dextrose (Dextrose 50% Inj) 0 ml IVP .STAT PRN; Protocol PRN Reason: Hypoglycemia Protocol Dextrose (Glutose 15) 0 gm PO .ONCE PRN; Protocol PRN Reason: Hypoglycemia Protocol Glucagon (Glucagen Diagnostic Kit) 0 mg IM .STAT PRN; Protocol PRN Reason: Hypoglycemia Protocol Cefepime HCl 1 gm/ Dextrose 50 mls @ 100 mls/hr IVPB Q12H [facility]; Protocol Last Admin: 11/13/18 10:14 Dose: 100 mls/hr Lactobacillus Acidophilus (Lactobacillus) 1 cap PO BID [facility] Last Admin: 11/13/18 18:27 Dose: 1 cap Methimazole (Tapazole) 10 mg PO Q8 [facility] Last Admin: 11/13/18 13:30 Dose: 10 mg Metoclopramide HCl (Reglan) 10 mg IVP Q6H [facility] Last Admin: 11/13/18 16:30 Dose: 10 mg Midodrine (Proamatine) 10 mg PO TID [facility] Last Admin: 11/13/18 18:28 Dose: 10 mg Modafinil (Provigil) 50 mg PO DAILY [facility] Last Admin: 11/13/18 10:21 Dose: 50 mg Multivitamins (Hexavitamin) 1 tab PEG DAILY [facility] Last Admin: 11/13/18 10:15 Dose: 1 tab Pantoprazole Sodium (Protonix Susp) 40 mg GT Q12H [facility] Last Admin: 11/13/18 10:15 Dose: 40 mg Polyethylene Glycol (Miralax) 17 gm PO BID [facility] Last Admin: 11/13/18 18:28 Dose: 17 gm Simethicone (Mylicon Chew Tab) 80 mg PO QID [facility] Last Admin: 11/13/18 18:28 Dose: 80 mg Sodium Bicarbonate (Sodium Bicarbonate Tab) 650 mg PO BID [facility] Last Admin: 11/13/18 18:28 Dose: 650 mg Tamsulosin HCl (Flomax) 0.4 mg PEG DAILY [facility] Last Admin: 11/13/18 10:16 Dose: 0.4 mg Vitamin A (Vitamin A & D Oint Ud Foilpak) 0.5 ea TOP DAILY [facility] Last Admin: 11/13/18 10:15 Dose: 0.5 ea - Labs Labs: 11/13/18 07:04 11/13/18 07:04 PT 13.3 SECONDS (9.7-12.2) H 10/23/18 06:05 INR 1.2 10/23/18 06:05 APTT 23 SECONDS (21-34) 10/02/18 06:10 Assessment and Plan (1) Septic shock Status: Acute (2) Acute respiratory failure Status: Acute (3) Urinary tract infection Status: Acute (4) Acute renal failure Status: Acute (5) Aspiration pneumonia Status: Acute (6) Diabetes mellitus Status: Chronic (7) Ventricular arrhythmia Status: Acute (8) Hyperthyroidism Status: Acute (9) Anemia Status: Acute (10) Prophylactic measure Status: Acute Attending/Attestation - Attestation I have personally seen and examined this patient.: Yes I have fully participated in the care of the patient.: Yes I have reviewed all pertinent clinical information, including history, physical exam and plan: Yes Notes (Text): Patient seen, examined, and case discussed with day-time resident. patient transferred to the 3rd floor general medical floor in contact isolation room. This is a 53-year-old female with a prolonged hospitalization for treatment for septic shock complicated by both pneumonia and urinary tract infections, anoxic encephalopathy likely secondary to 2 cardiac arrest during hospitalization, hyperthyroidism which had been controlled on methimazole, which is on hold until nov 05, shock liver which is now recovered, history of apical thrombus which is currently being treated with aspirin and is not on anticoagulation secondary to worsening heavy vaginal bleeding which required multiple blood transfusions during hospitalization, history of left lower extremity DVT which falling 1 month of anticoagulation has radiographically disappeared on repeat ultrasound and has now an IVC filter, as well as diabetes, vitamin D deficiency. CT chest on October 23, 2018 noted large bilateral pleural effusions with associated consolidations. Trace pericardial effusion. Borderline cardiomegaly. Enlarged heterogeneous partially imaged thyroid gland. Tracheostomy tube. Limited visualization of the noncontrast upper abdominal IVC filter. Bilateral renal cyst. Small perihepatic and perisplenic ascites. Pancreatic atrophy. Possible tiny gallstone. Indeterminate 13 mm left upper lobe nodule indeterminate. Patient under underwent chest tube placement with interventional radiology on October [address] placement of 8.5 Syriac pigtail drain catheter within the right and left pleural space. Trach aspirate noted for Pseudomonas. Patient was placed on Maxipime since 10/27/18 per infectious disease. Pleural fluid shows no growth. Will need to monitor fluid output. Chest xray (11/02/18): worsening pulmonary edema. Stable position of support apparatus including tracheostomy device in bilateral pigtail ca theters. Most recent chest xray (11/10/18): interval improved aeration in both lungs. No acute findings. Stable position of bilateral chest tubes. Stable position of tracheostomy tube. Patient is noted to be incontinent of the urine. She has mcintyre which was exchanged on 11/05/18. Procalcitonin is high: 1.49 in light of Pseudomonas pneumonia on 11/01/18 and UTI likely colonizer; repeat procalcitonin 0.24 on 11.09.18. Patient has been on Maxipime 1gm IV Q12H since 10/27/18. Patient remains without fever. White count normalized in today's blood work. Also note patient did underwent a lumbar puncture on September 15 HSV-2 IgM antibody, VDRL, and the West Nile are still pending. Physical therapy had signed off on September 24 because patient is not a candidate because she cannot follow directions. Patient would be an ideal candidate for LTAC however she does not have insurance, her is not from this [place] which limits her ability for services. The other thing is patient still remains trach to vent as well. Also to note patient does have sequential compressive stocking since the follow- up venous Doppler which did indicate that the clot had cleared.Patient does have noted muscle wasting. Wound care re-evaluated the patient on 10/05/18 for skin break down over the flexor surfaces over the knee. New recommendations were placed. Patient has noted flexor over the knees. She has dependent edema over the lower extremities and upper extremities. Patient's midodrine increased to 10mg PO TID to increase blood pressure. Evening, 10/30/18 patient had an episode of atrial fib RVR which required Lopressor given by nighttime resident. We have repeated thyroid studies with elevated TSH, Free T4 normal; Endocrinology has permited restart of Methiazmole 10mg PO Q8H as of 11/08/18. Patient given dose of Albumin 11/01/18 to help improve blood pressure. Patient ordered for phosphate enema 10/31/18. patient restarted on tube feedings 10/30/18. patient had passed gas overnight but did not have a blood movement. patient placed on miralax and reglan to help promote bowel movement. Patient had a small bowel movement on 10/31/18 and is passing gas. Patient had abdominal xray to repeat which showed no obstruction. ABG is essentially normal. Patient's tube feedings restarted on 11/04/18. We will need to monitor to residual and titrate accordingly. Chest Tubes to remain in place for now considering the patient's history of reaccumulation of pleural fluid despite multiple thoracentesis. chest tube noted only 50cc output. Continue Cefepime antibiotic for now until chest tubes remain in place. Patient has a skin tear on the Right Upper Medial Buttock without any evidence of surrounding cellulitis (exam performed with the assistance of PK Mcwilliams) with 11/12/18. Nursing order was placed on 11/11/18 for Medihoney to this area and then to cover with Optifoam Dressing as well as to reposition the patient every 2 hours. Patient remains neurologically the same. No improvement noted. Patient remains s/p trach on vent. FiO2 on 40%. on Duoneb treatments. Patient is off mucoyst because secretions clog up the vent. Resident Chauncey has received consent for placement for PICC for patient; risks and benefits discussed by resident. vascular nurse, dash to place PICC line today 11/12/18. Patient noted to have poor prognosis though she has survived many things during her hospitalization. Her who remains in high spirits hopes that she will recover and has been persistently at bedside every single day since being hospitalized in July. I spoke with social group worker, Andi, if any update for discharge planning. patient remains trach collar, vent dependent.
[2018-11-13] MEDS: Albuterol-Ipratrop 3 mg / 0.5 (3 ml) UD INH SCH ×2 (08:38→20:24)
[2018-11-13 09:46] LABS: BANDS 3 % (0-2); EOSINOPHIL 4 % (0-4); LYMPHOCYTE 9 % (20-40); MONOCYTE 6 % (0-10); NEUTROPHIL 78 % (50-75); PLATELET ESTIMATE NORMAL (NORMAL); TOTAL CELLS COUNTED 100
[2018-11-13 09:47] LABS: ANISOCYTOSIS MODERATE; LARGE PLATELETS PRESENT; OVALOCYTES SLIGHT
[2018-11-13] MEDS: Vitamins A & D Oint UD Foilpak TOP SCH (10:15)
[2018-11-13] MEDS: Multiple Vitamins Tab PEG SCH (10:15)
[2018-11-13] MEDS: Pantoprazole 40 mg Susp UD GT SCH ×2 (10:15→21:56)
[2018-11-13] MEDS: POLYETHYLENE GLYCOL 3350 17 GM/Dose PACKET PO SCH ×2 (10:16→18:28)
[2018-11-13] MEDS: Lactobacillus Acidophilus 500 MU Cap PO SCH ×2 (10:16→18:27)
[2018-11-13] MEDS: Modafinil 50 MG TAB PO SCH (10:21)
[2018-11-13] MEDS: Simethicone 80 mg Chewtab PO SCH ×4 (10:21→21:56)
--- NOTE | 2018-11-13 11:36 | CP.PCM.PN ---
Subjective - Date & Time of Evaluation Date of Evaluation: 11/13/18 Time of Evaluation: 09:00 - Subjective Subjective: afebrile IV rx renewed Objective - Vital Signs/Intake and Output Vital Signs (last 24 hours): Temp Pulse Resp BP Pulse Ox 97.6 F 97 H 20 116/65 99 11/13/18 07:13 11/13/18 07:13 11/13/18 07:13 11/13/18 07:13 11/13/18 07:13 Intake and Output: 11/13/18 11/13/18 06:59 18:59 Intake Total 522 Output Total 180 Balance 342 - Medications Medications: Current Medications Albuterol/Ipratropium (Duoneb 3 Mg/0.5 Mg (3 Ml) Ud) 3 ml INH RQ6 [facility] Last Admin: 11/13/18 08:38 Dose: 3 ml Ascorbic Acid (Vitamin C 500 Mg Tab) 1,000 mg NG DAILY [facility] Last Admin: 11/13/18 10:15 Dose: 1,000 mg Aspirin (Aspirin Chewable) 81 mg GT DAILY [facility] Last Admin: 11/13/18 10:15 Dose: 81 mg Dextrose (Dextrose 50% Inj) 0 ml IVP .STAT PRN; Protocol PRN Reason: Hypoglycemia Protocol Dextrose (Glutose 15) 0 gm PO .ONCE PRN; Protocol PRN Reason: Hypoglycemia Protocol Glucagon (Glucagen Diagnostic Kit) 0 mg IM .STAT PRN; Protocol PRN Reason: Hypoglycemia Protocol Cefepime HCl 1 gm/ Dextrose 50 mls @ 100 mls/hr IVPB Q12H [facility]; Protocol Last Admin: 11/13/18 10:14 Dose: 100 mls/hr Lactobacillus Acidophilus (Lactobacillus) 1 cap PO BID [facility] Last Admin: 11/13/18 10:16 Dose: 1 cap Methimazole (Tapazole) 10 mg PO Q8 [facility] Last Admin: 11/13/18 06:41 Dose: 10 mg Metoclopramide HCl (Reglan) 10 mg IVP Q6H [facility] Last Admin: 11/13/18 10:40 Dose: Not Given Midodrine (Proamatine) 10 mg PO TID [facility] Last Admin: 11/13/18 10:16 Dose: 10 mg Modafinil (Provigil) 50 mg PO DAILY [facility] Last Admin: 11/13/18 10:21 Dose: 50 mg Multivitamins (Hexavitamin) 1 tab PEG DAILY [facility] Last Admin: 11/13/18 10:15 Dose: 1 tab Pantoprazole Sodium (Protonix Susp) 40 mg GT Q12H [facility] Last Admin: 11/13/18 10:15 Dose: 40 mg Polyethylene Glycol (Miralax) 17 gm PO BID [facility] Last Admin: 11/13/18 10:16 Dose: 17 gm Simethicone (Mylicon Chew Tab) 80 mg PO QID [facility] Last Admin: 11/13/18 10:21 Dose: 80 mg Sodium Bicarbonate (Sodium Bicarbonate Tab) 650 mg PO BID [facility] Last Admin: 11/13/18 10:15 Dose: 650 mg Tamsulosin HCl (Flomax) 0.4 mg PEG DAILY [facility] Last Admin: 11/13/18 10:16 Dose: 0.4 mg Vitamin A (Vitamin A & D Oint Ud Foilpak) 0.5 ea TOP DAILY [facility] Last Admin: 11/13/18 10:15 Dose: 0.5 ea - Labs Labs: 11/13/18 07:04 11/13/18 07:04 PT 13.3 SECONDS (9.7-12.2) H 10/23/18 06:05 INR 1.2 10/23/18 06:05 APTT 23 SECONDS (21-34) 10/02/18 06:10 - Constitutional Appears: Non-toxic, Chronically Ill - Head Exam Head Exam: NORMOCEPHALIC - Eye Exam Eye Exam: absent: Scleral icterus - ENT Exam ENT Exam: Mucous Membranes Dry - Neck Exam Neck Exam: absent: Lymphadenopathy - Respiratory Exam Respiratory Exam: Decreased Breath Sounds - Cardiovascular Exam Cardiovascular Exam: REGULAR RHYTHM - GI/Abdominal Exam GI & Abdominal Exam: Distended - Rectal Exam Rectal Exam: Deferred - Exam Exam: NORMAL INSPECTION - Extremities Exam Extremities Exam: absent: Pedal Edema - Back Exam Back Exam: absent: CVA tenderness (L), CVA tenderness (R) Assessment and Plan (1) NEHA (acute kidney injury) Status: Acute (2) Acute renal failure Status: Acute (3) Acute respiratory failure Status: Acute (4) Aspiration pneumonia Status: Acute (5) Septic shock Status: Acute (6) Urinary tract infection Status: Acute (7) Diabetes mellitus Status: Chronic (8) Anoxic brain damage Status: Acute - Assessment and Plan (Free Text) Assessment: cont iv rx
[2018-11-14] MEDS: Albuterol-Ipratrop 3 mg / 0.5 (3 ml) UD INH SCH ×4 (01:39→19:47)
[2018-11-14] MEDS: Modafinil 50 MG TAB PO SCH (11:00)
[2018-11-14] MEDS: Lactobacillus Acidophilus 500 MU Cap PO SCH ×2 (11:00→17:50)
[2018-11-14] MEDS: Pantoprazole 40 mg Susp UD GT SCH ×2 (11:00→22:21)
[2018-11-14] MEDS: Simethicone 80 mg Chewtab PO SCH ×4 (11:00→22:20)
--- NOTE | 2018-11-14 11:29 | CP.PCM.PN ---
<Bhanu Villegas - Last Filed: 11/14/18 16:53> Subjective - Date & Time of Evaluation Date of Evaluation: 11/14/18 Time of Evaluation: 11:27 - Subjective Subjective: HOSPITALIST SERVICE Pt seen and examined at bedside, as per nursing fever overnight of 100.9, PICC line was unable to be done and labs unable to be drawn. Pt mental status same. Pt chest tubes draining on the right still, increased tracheal secreations aswell endorsed by nursing. Objective - Vital Signs/Intake and Output Vital Signs (last 24 hours): Temp Pulse Resp BP Pulse Ox 100.9 F H 80 20 100/65 100 11/14/18 07:00 11/14/18 07:00 11/14/18 07:00 11/14/18 07:00 11/14/18 07:00 Intake and Output: 11/14/18 11/14/18 06:59 18:59 Intake Total 1352 Output Total 515 Balance 837 - Medications Medications: Current Medications Acetaminophen (Tylenol 160mg/5ml Oral Soln) 640 mg PO ONCE ONE Stop: 11/14/18 11:15 Albuterol/Ipratropium (Duoneb 3 Mg/0.5 Mg (3 Ml) Ud) 3 ml INH RQ6 [facility] Last Admin: 11/14/18 07:20 Dose: 3 ml Ascorbic Acid (Vitamin C 500 Mg Tab) 1,000 mg NG DAILY [facility] Last Admin: 11/13/18 10:15 Dose: 1,000 mg Aspirin (Aspirin Chewable) 81 mg GT DAILY [facility] Last Admin: 11/13/18 10:15 Dose: 81 mg Dextrose (Dextrose 50% Inj) 0 ml IVP .STAT PRN; Protocol PRN Reason: Hypoglycemia Protocol Dextrose (Glutose 15) 0 gm PO .ONCE PRN; Protocol PRN Reason: Hypoglycemia Protocol Glucagon (Glucagen Diagnostic Kit) 0 mg IM .STAT PRN; Protocol PRN Reason: Hypoglycemia Protocol Cefepime HCl 1 gm/ Dextrose 50 mls @ 100 mls/hr IVPB Q12H [facility]; Protocol Last Admin: 11/13/18 21:55 Dose: 100 mls/hr Lactobacillus Acidophilus (Lactobacillus) 1 cap PO BID [facility] Last Admin: 11/13/18 18:27 Dose: 1 cap Methimazole (Tapazole) 10 mg PO Q8 [facility] Last Admin: 11/14/18 05:52 Dose: 10 mg Metoclopramide HCl (Reglan) 10 mg IVP Q6H [facility] Last Admin: 11/14/18 03:14 Dose: 10 mg Midodrine (Proamatine) 10 mg PO TID [facility] Last Admin: 11/13/18 18:28 Dose: 10 mg Modafinil (Provigil) 50 mg PO DAILY [facility] Last Admin: 11/13/18 10:21 Dose: 50 mg Multivitamins (Hexavitamin) 1 tab PEG DAILY [facility] Last Admin: 11/13/18 10:15 Dose: 1 tab Pantoprazole Sodium (Protonix Susp) 40 mg GT Q12H [facility] Last Admin: 11/13/18 21:56 Dose: 40 mg Polyethylene Glycol (Miralax) 17 gm PO BID [facility] Last Admin: 11/13/18 18:28 Dose: 17 gm Simethicone (Mylicon Chew Tab) 80 mg PO QID [facility] Last Admin: 11/13/18 21:56 Dose: 80 mg Sodium Bicarbonate (Sodium Bicarbonate Tab) 650 mg PO BID [facility] Last Admin: 11/13/18 18:28 Dose: 650 mg Tamsulosin HCl (Flomax) 0.4 mg PEG DAILY [facility] Last Admin: 11/13/18 10:16 Dose: 0.4 mg Vitamin A (Vitamin A & D Oint Ud Foilpak) 0.5 ea TOP DAILY [facility] Last Admin: 11/13/18 10:15 Dose: 0.5 ea - Labs Labs: 11/13/18 07:04 11/13/18 07:04 PT 13.3 SECONDS (9.7-12.2) H 10/23/18 06:05 INR 1.2 10/23/18 06:05 APTT 23 SECONDS (21-34) 10/02/18 06:10 - Additional Findings Additional findings: - Constitutional Appears: Chronically Ill - Head Exam Head Exam: NORMAL INSPECTION, NORMOCEPHALIC - Eye Exam Eye Exam: absent: Nystagmus, Scleral icterus - ENT Exam ENT Exam: Mucous Membranes Dry - Neck Exam Additional comments: trach with vent in place - Respiratory Exam Respiratory Exam: NORMAL BREATHING PATTERN, secretions appear increased - Cardiovascular Exam Cardiovascular Exam: REGULAR RHYTHM, +S1, +S2 - GI/Abdominal Exam GI & Abdominal Exam: Soft, Normal Bowel Sounds. absent: Distended, Firm, Guarding, Rigid, Tenderness, Hyperactive Bowel Sounds Additional comments: noted PEG tube in place w dressing c/d/i - Exam Additional comments: mcintyre in place - Extremities Exam Extremities Exam: Normal Inspection. absent: Calf Tenderness, Pedal Edema L arm worsening edema - Neurological Exam Neurological Exam: absent: Alert, Oriented x3 - Skin Skin Exam: Dry, Normal Color Additional comments: [address] outputting fluid skin tear on buttock, dressed with medihoney and optifoam dressing Assessment and Plan - Assessment and Plan (Free Text) Assessment: This is a 52 yo female originally admitted to the ICU for septic shock 2/2 to PNA/UTI worsened by cardiac arrest and anoxic brain injury. Patient found to have apical thrombus in heart. Patient is s/p trach and PEG. Patient still unable to be weaned off vent. She has had multiple complications, including DVT and infections (PNA, UTI). s/p IVC filter 08/23. s/p multiple chest tube plac ements Sep 19-Oct 21. s/p LP 09/15. Patient has shown minimal improvement of cognitive function during the course of this hospitalization. Patient does not have any insurance and therefore cannot be placed in rehab/NH. Multiple conversations with regarding poor prognosis- he wishes to keep her full code. Palliative and pastoral care have been on board. Plan: Altered mental status/Encephalopathy- suspect anoxic encephalopathy - Code Blue 07/10 and 07/20 - Moved to med surg floor 11/08 - Chest tubes x2 in place - Off sedation - Modafinil 50 mg PO daily - CT head (08/28/18): No hemorrhage or midline shift - MRI brain (09/08/18): No definite mass effect or suspicious extra axial collection. No evidence of acute or subacute brain infarction at this time. Borderline pattern of hydrocephalus. - LP 09/15/18: normal opening pressure - LDH 30, glucose 69, tot prot 67 - CSF Cx: no growth - Other CSF studies pending- called lab 11/01, they will contact [facility] for update - Neurology consulted (George/Ankit) Acute respiratory failure- s/p trach on vent, unable to wean - Tracheostomy 07/24/18, s/p bronchoscopy 08/23 - Patient had tolerated trach collars in early Aug 2018; however she has been on vent to trach since. Fi02: 40% - Bronchoscopy (08/23/18) by Dr. Lozada - Bronchial washings: Pseudomonas Aeruginosa - Fungal Cx: negative - Mycobacterial Cx: negative - Chest physiotherapy - Most recent CT chest (10/27/18): Large bilateral pleural effusions and associated consolidations. Trace pericardial effusion. Borderline cardiomegaly. Enlarged heterogeneous partially imaged thyroid gland. - Monitor CO2 - ABG on FiO2 40 (11/02/18): pH 7.34, pCO2 29, pO2 106 - Start Sodium bicarb 650 mg PEG BID - Pulmonary consulted (Neville) Distended abdomen- resolving BM yesterday - AXR (10/28/18): Nonspecific bowel gas pattern with relative paucity of bowel gas. - Repeat AXR (11/02/18): Normal bowel gas pattern. - PEG tube feeds goal rate 40:Pulmocare - Reglan 10 mg IV Q6H - Miralax PEG BID - Simethicone 80 mg PEG QID Upper Extremity swelling bilateral - f/u upper ext dopplers : neg - holding anticoags due to vaginal bleeding - Ordered PICC today however Dash was unable to get access after one attempt and does not want to try again, will consult IR: they dont want to do it until blood cultures read - Mid Line ordered Pleural effusions- s/p bilateral chest tubes - Multiple chest tubes and thoracenteses for effusions, most recent s/p b ilateral chest tubes 10/27 - Pleural fluid from 10/13/18 - WBC 794, RBC 2083, tot cells 100, neutrophils 87% - Tot prot<3, LDH 145, glucose 146 - CT chest (10/27/18): Placment of 8.5 American pigtail drainage catheter within right and left pleural space - Most recent CXR (10/31/18): Status post bilateral chest tube placements. Marked reduction of bilateral pleural effusions, commensurate re-expansion of both lungs. - Repeat CXR 11/02: Worsening pulmonary edema - Discontinue IVF - IR consulted (Partha) - Pulmonology consulted (Neville) Thyroid disorder - Thyroid US (07/16/18): Heterogeneous thyroid echotexture. Numerous nodules as described above. Suggest percutaneous biopsy of the following suspicious nodules; 1.8 x 0.9 x 1.7 cm right lower pole nodule, 1.0 x 0.7 x 0.9 cm right upper pole lesion with intracystic vascular nodule, complex left upper pole nodule measuring 2.1 x 1.5 x 1.8 cm. - Note: Initial thyroid studies taken before amiodarone was given- this is NOT amiodarone induced - TSH <0.02 in 07/2018, 10/31/18 TSH 18.10 - Free T4 >3 in 07/2018, 10/31/2018 free T4 0.24 - Recheck TSH, free T4 on 11/08/18 - Methimazole to 10 mg PO Q8H - Off Propranolol 5 mg PO TID due to hypotension - Endocrinology consulted (Irwin) Hypotension, improved, stable - Remains stable in 100s-120s/50s-60s - Monitor albumin, administer PRN doses - Midodrine 10 mg PEG TID Atrial fibrillation RVR (resolved) - EKG (10/29/18): Afib HR 130 - Cardiology consulted (Nolan) Deconditioning - Patient needs aggressive continued PT/OT- PT signed off as patient does not follow directions - Nursing and move patient OOB to chair - Social work note (08/09/18): patient is undocumented, has not health insurance, discharge planning will be at home with Septic Shock 2/2 Pneumonia and Urinary Tract Infection (VRE and Pseudomonas)- urinary retention - Off pressors (previously on 3) - Mild leukocytosis (12.4) - Afebrile since 10/21/18 - Procal 1.49 on 11/01/18, 0.66 on 10/21/18 - CXR (11/02/18): worsening pulmonary edema - Most recent blood cultures negative - Most recent urine cultures (10/21/18) +VRE/Pseudomonas, suspect patient likely colonized - Mcintyre in place - Midline removed 11/01/18 - PICC team unable to insert PICC line 11/13/18 - Flomax 0.4 mg PEG daily - Cefepime 1 g Q12H- started 10/27 - ID consulted (Vinod) - low grade fever today f/u bc and procal Anemia 2/2 to Chronic Diseases +/- Dysfunctional uterine bleeding, stable - Stool occult blood negative - Iron normal, TIBC low, Iron saturation normal, Ferritin normal - B12, folate normal - Vaginal US: thickened endometrium - Transfused pRBC: 1 unit 07/22/18, 2 units 08/13/18, 1 unit 08/17/18, 1 unit 08/23/18 - OBGYN consulted (Gilberto)- no hysterectomy Apical thrombus - Echo (07/07/18) before cardiac arrest: EF 40-45% - Echo (07/10/19) after cardiac arrest: EF 40%, LV large apical hypokinesis, large 30x20 mm soft tissue apical sessile mass suggestive of thrombus - Echo (08/17/19): LV clot, no significant change - Too high risk for HUBERT - Previously on heparin gtt, Eliquis- stopped due to anemia and vaginal bleeding - ASA 81 mg PEG daily LLE Deep vein thrombosis s/p IVC filter - Venous Doppler (07/18/18): Acute thrombosis of the left common femoral and femoral veins with severe reduction of the venous return - Resolved on repeat imaging - Previously on heparin gtt, Eliquis- stopped due to anemia and vaginal bleeding - s/p IVC filter on 08/23/18 - Vasc surgery consulted (Vicky) Type 2 diabetes mellitus, chronic - A1c: 7.8 - Hypoglycemia protocol - Accuchecks Q6H Vtach- Code blue x2 (07/10/18) - Previously on amiodarone ggt - Cardiology consulted (Nolan) Acute kidney failure, resolved - Required dialysis early in admission before code blues - Monitor BUN, Cr Shock liver, resolved - Hepatitis panel negative - HIV negative - Monitor LFTs Ppx: VTE: SCDs GI: Protonix 40mg PEG Q12H PEG: Pulmocare goal rate 40 mL/hr- feeds restarted 2/2 * Lactobacillus 1 cap PEG Q12H * Multivitamin PEG daily * Vitamin C 1,000 PEG daily * Vitamin A&E Code status: full code- Palliative consulted Case reviewed with Dr. Leahy <Saira Leahy V - Last Filed: 11/15/18 09:45> Objective - Vital Signs/Intake and Output Vital Signs (last 24 hours): Temp Pulse Resp BP Pulse Ox 98.7 F 85 20 97/59 L 100 11/15/18 07:00 11/15/18 07:00 11/15/18 07:00 11/15/18 07:00 11/15/18 07:00 Intake and Output: 11/15/18 11/15/18 06:59 18:59 Intake Total 320 820 Output Total 280 460 Balance 40 360 - Medications Medications: Current Medications Albuterol/Ipratropium (Duoneb 3 Mg/0.5 Mg (3 Ml) Ud) 3 ml INH RQ6 [facility] Last Admin: 11/15/18 07:40 Dose: 3 ml Ascorbic Acid (Vitamin C 500 Mg Tab) 1,000 mg NG DAILY [facility] Last Admin: 11/14/18 11:00 Dose: 1,000 mg Aspirin (Aspirin Chewable) 81 mg GT DAILY [facility] Last Admin: 11/14/18 11:00 Dose: 81 mg Dextrose (Dextrose 50% Inj) 0 ml IVP .STAT PRN; Protocol PRN Reason: Hypoglycemia Protocol Dextrose (Glutose 15) 0 gm PO .ONCE PRN; Protocol PRN Reason: Hypoglycemia Protocol Glucagon (Glucagen Diagnostic Kit) 0 mg IM .STAT PRN; Protocol PRN Reason: Hypoglycemia Protocol Cefepime HCl 1 gm/ Dextrose 50 mls @ 100 mls/hr IVPB Q12H [facility]; Protocol Last Admin: 11/14/18 22:19 Dose: 100 mls/hr Lactobacillus Acidophilus (Lactobacillus) 1 cap PO BID [facility] Last Admin: 11/14/18 17:50 Dose: 1 cap Methimazole (Tapazole) 10 mg PO Q8 [facility] Last Admin: 11/15/18 06:11 Dose: 10 mg Metoclopramide HCl (Reglan) 10 mg IVP Q6H [facility] Last Admin: 11/15/18 03:44 Dose: 10 mg Midodrine (Proamatine) 10 mg PO TID [facility] Last Admin: 11/14/18 19:00 Dose: 10 mg Modafinil (Provigil) 50 mg PO DAILY [facility] Last Admin: 11/14/18 11:00 Dose: 50 mg Multivitamins (Hexavitamin) 1 tab PEG DAILY [facility] Last Admin: 11/14/18 11:42 Dose: 1 tab Pantoprazole Sodium (Protonix Susp) 40 mg GT Q12H [facility] Last Admin: 11/14/18 22:21 Dose: 40 mg Polyethylene Glycol (Miralax) 17 gm PO BID [facility] Last Admin: 11/14/18 17:49 Dose: 17 gm Simethicone (Mylicon Chew Tab) 80 mg PO QID [facility] Last Admin: 11/14/18 22:20 Dose: 80 mg Sodium Bicarbonate (Sodium Bicarbonate Tab) 650 mg PO BID [facility] Last Admin: 11/14/18 17:50 Dose: 650 mg Tamsulosin HCl (Flomax) 0.4 mg PEG DAILY [facility] Last Admin: 11/14/18 11:00 Dose: 0.4 mg Vitamin A (Vitamin A & D Oint Ud Foilpak) 0.5 ea TOP DAILY [facility] Last Admin: 11/14/18 11:44 Dose: 0.5 ea - Labs Labs: 11/15/18 07:02 11/15/18 07:02 PT 13.3 SECONDS (9.7-12.2) H 10/23/18 06:05 INR 1.2 10/23/18 06:05 APTT 23 SECONDS (21-34) 10/02/18 06:10 Assessment and Plan (1) Septic shock Status: Acute (2) Acute respiratory failure Status: Acute (3) Urinary tract infection Status: Acute (4) Acute renal failure Status: Acute (5) Aspiration pneumonia Status: Acute (6) Diabetes mellitus Status: Chronic (7) Ventricular arrhythmia Status: Acute (8) Hyperthyroidism Status: Acute (9) Anemia Status: Acute (10) Prophylactic measure Status: Acute Attending/Attestation - Attestation I have personally seen and examined this patient.: Yes I have fully participated in the care of the patient.: Yes I have reviewed all pertinent clinical information, including history, physical exam and plan: Yes Notes (Text): This is a late computer work November 14, 2018. Patient seen, examined, and case discussed with day-time resident. patient transferred to the 3rd floor general medical floor in contact isolation room after an extended stay in the stepdown unit in the intensive care unit. This is a 53-year-old female with a prolonged hospitalization for treatment for septic shock complicated by both pneumonia and urinary tract infections, anoxic encephalopathy likely secondary to 2 cardiac arrest during hospitalization, hyperthyroidism which had been controlled on methimazole, which is on hold until nov 05, shock liver which is now recovered, history of apical thrombus which is currently being treated with aspirin and is not on anticoagulation secondary to worsening heavy vaginal bleeding which required multiple blood transfusions during hospitalization, history of left lower extremity DVT which falling 1 month of anticoagulation has radiographically disappeared on repeat ultrasound and has now an IVC filter, as well as diabetes, vitamin D deficiency. CT chest on October 23, 2018 noted large bilateral pleural effusions with assoc iated consolidations. Trace pericardial effusion. Borderline cardiomegaly. Enlarged heterogeneous partially imaged thyroid gland. Tracheostomy tube. Limited visualization of the noncontrast upper abdominal IVC filter. Bilateral renal cyst. Small perihepatic and perisplenic ascites. Pancreatic atrophy. Possible tiny gallstone. Indeterminate 13 mm left upper lobe nodule indeterminate. Patient under underwent chest tube placement with interventional radiology on October [address] placement of 8.5 American pigtail drain catheter within the right and left pleural space. Trach aspirate noted for Pseudomonas. Patient was placed on Maxipime since 10/27/18 per infectious disease. Pleural fluid shows no growth. Will need to monitor fluid output. Chest xray (11/02/18): worsening pulmonary edema. Stable position of support apparatus including tracheostomy device in bilateral pigtail catheters. Most recent chest xray (11/10/18): interval improved aeration in both lungs. No acute findings. Stable position of bilateral chest tubes. Stable position of tracheostomy tube. Patient is noted to be incontinent of the urine. She has mcintyre which was exchanged on 11/05/18. Procalcitonin is high: 1.49 in light of Pseudomonas pneumonia on 11/01/18 and UTI likely colonizer; repeat procalcitonin 0.24 on 11.09.18. Patient has been on Maxipime 1gm IV Q12H since 10/27/18. Patient remains without fever. White count normalized in today's blood work. Also note patient did underwent a lumbar puncture on September 15 HSV-2 IgM antibody, VDRL, and the West Nile are still pending. Physical therapy had signed off on September 24 because patient is not a candidate because she cannot follow directions. Patient would be an ideal candidate for LTAC however she does not have insurance, her is not from this [place] which limits her ability for services. The other thing is patient still remains trach to vent as well. Also to note patient does have sequential compressive stocking since the follow- up venous Doppler which did indicate that the clot had cleared.Patient does have noted muscle wasting. Wound care re-evaluated the patient on 10/05/18 for skin break down over the flexor surfaces over the knee. New recommendations were placed. Patient has noted flexor over the knees. She has dependent edema over the lower extremities and upper extremities. Patient's midodrine increased to 10mg PO TID to increase blood pressure. Evening, 10/30/18 patient had an episode of atrial fib RVR which required Lopressor given by nighttime resident. We have repeated thyroid studies with elevated TSH, Free T4 normal; Endocrinology has permited restart of Methiazmole 10mg PO Q8H as of 11/08/18. Patient given dose of Albumin 11/01/18 to help improve blood pressure. Patient ordered for phosphate enema 10/31/18. patient restarted on tube feedings 10/30/18. patient had passed gas overnight but did not have a blood movement. patient placed on miralax and reglan to help promote bowel movement. Patient had a small bowel movement on 10/31/18 and is passing gas. Patient had abdominal xray to r epeat which showed no obstruction. ABG is essentially normal. Patient's tube feedings restarted on 11/04/18. We will need to monitor to residual and titrate accordingly. Chest Tubes to remain in place for now considering the patient's history of reaccumulation of pleural fluid despite multiple thoracentesis. chest tube noted only 50cc output. Continue Cefepime antibiotic for now until chest tubes remain in place. Patient has a skin tear on the Right Upper Medial Buttock without any evidence of surrounding cellulitis (exam performed with the assistance of PK Mcwilliams) with 11/12/18. Nursing order was placed on 11/11/18 for Medihoney to this area and then to cover with Optifoam Dressing as well as to reposition the patient every 2 hours. Patient remains neurologically the same. No improvement noted. Patient remains s/p trach on vent. FiO2 on 40%. on Duoneb treatments. Patient is off mucoyst because secretions clog up the vent. I did discuss with patient's nurse Tamy patient is pulling secretions in the mouth that she will still need to be suctioned. Resident Chauncey has received consent for placement for PICC for patient; risks and benefits discussed by resident. vascular nursedash to place PICC line 11/13/18. Patient was unable to get PICC line. Patient had low- grade fever of 100.9 Fahrenheit. We have asked PICC line nurse Bebeto Whitten in place and midline for the patient. We will draw new blood cultures and urine urine culture in light in spite of the low-grade temp. Patient remains on Maxipime per infectious disease. Blood work not drawn at time of my rounds will follow up. Patient noted to have poor prognosis though she has survived many things during her hospitalization. Her who remains in high spirits hopes that she will recover and has been persistently at bedside every single day since being hospitalized in July. not present at bedside during the time of my rounds however he noted that he is a frequent visitor every day. Patient does have significant dependent edema in both upper extremities noted swelling over the left hand. Patient also is in extreme pain in both lower extremity. When I do attempt to move both legs he does react to pain. We have attempted to try to move her legs to prevent further contractures. We will also check a CPK as well to see if there is any element of rhabdomyolysis in light of patient's pain in the legs.
[2018-11-14] MEDS: Multiple Vitamins Tab PEG SCH (11:42)
[2018-11-14] MEDS: Vitamins A & D Oint UD Foilpak TOP SCH (11:44)
[2018-11-14] MEDS ORDERED: Acetaminophen 650mg/20.3ml solution UD PO ONE (11:45)
[2018-11-14] MEDS: POLYETHYLENE GLYCOL 3350 17 GM/Dose PACKET PO SCH ×2 (11:46→17:49)
[2018-11-14 15:13] LABS: BASO % 0.4 % (0.0-2.0); EOS # 0.1 K/uL (0.0-0.7); EOS % 1.6 % (0.0-4.0); LYMPH # 0.9 K/uL (1.0-4.3); LYMPH % 10.5 % (20.0-40.0); MEAN CELL VOLUME 89.1 fL (81.0-99.0); MEAN CORPUSCULAR HEMOGLOBIN 29.3 pg (27.0-31.0); MEAN CORPUSCULAR HGB CONC 32.9 g/dL (33.0-37.0); MEAN PLATELET VOLUME 8.2 fL (7.2-11.7); MONO # 0.5 K/uL (0.0-0.8); MONO % 5.9 % (0.0-10.0); NEUT # 7.1 K/uL (1.8-7.0); NEUT % 81.6 % (50.0-75.0); NRBC % 0.1 % (0.0-2.0); RBC 2.3 Mil/uL (3.80-5.20); RED CELL DISTRIBUTION WIDTH 20.8 % (11.5-14.5); WHITE BLOOD COUNT 8.7 K/uL (4.8-10.8)
[2018-11-14 15:15] LABS: HEMOGLOBIN 6.7 g/dL (11.0-16.0)
[2018-11-14 15:19] LABS: ALB/GLOB RATIO 0.8 (1.0-2.1); ALBUMIN 2.2 g/dL (3.5-5.0); ALT/SGPT 31 U/L (9-52); AST/SGOT 32 U/L (14-36); BLOOD UREA NITROGEN 38 mg/dL (7-17); CALCIUM 7.8 mg/dl (8.6-10.4); GFR NON-AFRICAN AMERICAN > 60
[2018-11-15] MEDS: Albuterol-Ipratrop 3 mg / 0.5 (3 ml) UD INH SCH ×4 (02:15→20:51)
[2018-11-15 07:13] LABS: BASO % 0.4 % (0.0-2.0); EOS # 0.3 K/uL (0.0-0.7); EOS % 3.7 % (0.0-4.0); HEMOGLOBIN 6.8 g/dL (11.0-16.0); LYMPH # 0.9 K/uL (1.0-4.3); LYMPH % 11.1 % (20.0-40.0); MEAN CELL VOLUME 89.6 fL (81.0-99.0); MEAN CORPUSCULAR HEMOGLOBIN 29.6 pg (27.0-31.0); MEAN PLATELET VOLUME 7.9 fL (7.2-11.7); MONO # 0.6 K/uL (0.0-0.8); MONO % 7.1 % (0.0-10.0); NEUT # 6.5 K/uL (1.8-7.0); NEUT % 77.7 % (50.0-75.0); RBC 2.28 Mil/uL (3.80-5.20); RED CELL DISTRIBUTION WIDTH 20.4 % (11.5-14.5); WHITE BLOOD COUNT 8.4 K/uL (4.8-10.8)
[2018-11-15 07:51] LABS: ALB/GLOB RATIO 0.8 (1.0-2.1); ALBUMIN 2.3 g/dL (3.5-5.0); ALT/SGPT 38 U/L (9-52); AST/SGOT 46 U/L (14-36); BLOOD UREA NITROGEN 42 mg/dL (7-17); CALCIUM 7.5 mg/dl (8.6-10.4); GFR NON-AFRICAN AMERICAN 52
--- NOTE | 2018-11-15 09:43 | CP.PCM.PN ---
<Bhanu Villegas - Last Filed: 11/15/18 15:51> Subjective - Date & Time of Evaluation Date of Evaluation: 11/15/18 Time of Evaluation: 09:42 - Subjective Subjective: HOSPITALIST SERVICE Pt s/e at bedside, hg dropped today, per nursing, successful midline was placed but still no picc. Pt getting 1 u PRBCs Objective - Vital Signs/Intake and Output Vital Signs (last 24 hours): Temp Pulse Resp BP Pulse Ox 98.7 F 85 20 97/59 L 100 11/15/18 07:00 11/15/18 07:00 11/15/18 07:00 11/15/18 07:00 11/15/18 07:00 Intake and Output: 11/15/18 11/15/18 06:59 18:59 Intake Total 320 820 Output Total 280 460 Balance 40 360 - Medications Medications: Current Medications Albuterol/Ipratropium (Duoneb 3 Mg/0.5 Mg (3 Ml) Ud) 3 ml INH RQ6 MANOLO Last Admin: 11/15/18 07:40 Dose: 3 ml Ascorbic Acid (Vitamin C 500 Mg Tab) 1,000 mg NG DAILY MANOLO Last Admin: 11/14/18 11:00 Dose: 1,000 mg Aspirin (Aspirin Chewable) 81 mg GT DAILY MANOLO Last Admin: 11/14/18 11:00 Dose: 81 mg Dextrose (Dextrose 50% Inj) 0 ml IVP .STAT PRN; Protocol PRN Reason: Hypoglycemia Protocol Dextrose (Glutose 15) 0 gm PO .ONCE PRN; Protocol PRN Reason: Hypoglycemia Protocol Glucagon (Glucagen Diagnostic Kit) 0 mg IM .STAT PRN; Protocol PRN Reason: Hypoglycemia Protocol Cefepime HCl 1 gm/ Dextrose 50 mls @ 100 mls/hr IVPB Q12H MANOLO; Protocol Last Admin: 11/14/18 22:19 Dose: 100 mls/hr Lactobacillus Acidophilus (Lactobacillus) 1 cap PO BID MANOLO Last Admin: 11/14/18 17:50 Dose: 1 cap Methimazole (Tapazole) 10 mg PO Q8 MANOLO Last Admin: 11/15/18 06:11 Dose: 10 mg Metoclopramide HCl (Reglan) 10 mg IVP Q6H MANOLO Last Admin: 11/15/18 03:44 Dose: 10 mg Midodrine (Proamatine) 10 mg PO TID MANOLO Last Admin: 11/14/18 19:00 Dose: 10 mg Modafinil (Provigil) 50 mg PO DAILY COUNTS INCLUDE 234 BEDS AT THE [facility] Last Admin: 11/14/18 11:00 Dose: 50 mg Multivitamins (Hexavitamin) 1 tab PEG DAILY COUNTS INCLUDE 234 BEDS AT THE [facility] Last Admin: 11/14/18 11:42 Dose: 1 tab Pantoprazole Sodium (Protonix Susp) 40 mg GT Q12H COUNTS INCLUDE 234 BEDS AT THE [facility] Last Admin: 11/14/18 22:21 Dose: 40 mg Polyethylene Glycol (Miralax) 17 gm PO BID COUNTS INCLUDE 234 BEDS AT THE [facility] Last Admin: 11/14/18 17:49 Dose: 17 gm Simethicone (Mylicon Chew Tab) 80 mg PO QID COUNTS INCLUDE 234 BEDS AT THE [facility] Last Admin: 11/14/18 22:20 Dose: 80 mg Sodium Bicarbonate (Sodium Bicarbonate Tab) 650 mg PO BID COUNTS INCLUDE 234 BEDS AT THE [facility] Last Admin: 11/14/18 17:50 Dose: 650 mg Tamsulosin HCl (Flomax) 0.4 mg PEG DAILY COUNTS INCLUDE 234 BEDS AT THE [facility] Last Admin: 11/14/18 11:00 Dose: 0.4 mg Vitamin A (Vitamin A & D Oint Ud Foilpak) 0.5 ea TOP DAILY COUNTS INCLUDE 234 BEDS AT THE [facility] Last Admin: 11/14/18 11:44 Dose: 0.5 ea - Labs Labs: 11/15/18 07:02 11/15/18 07:02 PT 13.3 SECONDS (9.7-12.2) H 10/23/18 06:05 INR 1.2 10/23/18 06:05 APTT 23 SECONDS (21-34) 10/02/18 06:10 - Additional Findings Additional findings: - Constitutional Appears: Chronically Ill - Head Exam Head Exam: NORMAL INSPECTION, NORMOCEPHALIC - Eye Exam Eye Exam: absent: Nystagmus, Scleral icterus - ENT Exam ENT Exam: Mucous Membranes Dry - Neck Exam Additional comments: trach with vent in place - Respiratory Exam Respiratory Exam: NORMAL BREATHING PATTERN, secretions appear increased - Cardiovascular Exam Cardiovascular Exam: REGULAR RHYTHM, +S1, +S2 - GI/Abdominal Exam GI & Abdominal Exam: Soft, Normal Bowel Sounds. absent: Distended, Firm, Guarding, Rigid, Tenderness, Hyperactive Bowel Sounds Additional comments: noted PEG tube in place w dressing c/d/i - Exam Additional comments: mcintyre in place - Extremities Exam Extremities Exam: Normal Inspection. absent: Calf Tenderness, Pedal Edema L arm worsening edema - Neurological Exam Neurological Exam: absent: Alert, Oriented x3 - Skin Skin Exam: Dry, Normal Color Additional comments: [address] outputting fluid skin tear on buttock, dressed with medihoney and optifoam dressing Assessment and Plan - Assessment and Plan (Free Text) Assessment: This is a 52 yo female originally admitted to the ICU for septic shock 2/2 to PNA/UTI worsened by cardiac arrest and anoxic brain injury. Patient found to have apical thrombus in heart. Patient is s/p trach and PEG. Patient still unable to be weaned off vent. She has had multiple complications, including DVT and infections (PNA, UTI). s/p IVC filter 08/23. s/p multiple chest tube placements Sep 19-Oct 21. s/p LP 09/15. Patient has shown minimal improvement of cognitive function during the course of this hospitalization. Patient does not have any insurance and therefore cannot be placed in rehab/NH. Multiple conversations with regarding poor prognosis- he wishes to keep her full code. Palliative and pastoral care have been on board. Plan: Altered mental status/Encephalopathy- suspect anoxic encephalopathy - Code Blue 07/10 and 07/20 - Moved to med surg floor 11/08 - Chest tubes x2 in place - Off sedation - Modafinil 50 mg PO daily - CT head (08/28/18): No hemorrhage or midline shift - MRI brain (09/08/18): No definite mass effect or suspicious extra axial collection. No evidence of acute or subacute brain infarction at this time. Borderline pattern of hydrocephalus. - LP 09/15/18: normal opening pressure - LDH 30, glucose 69, tot prot 67 - CSF Cx: no growth - Other CSF studies pending- called lab 11/01, they will contact Xiaohongshu for update - Neurology consulted (George/Ankit) Acute respiratory failure- s/p trach on vent, unable to wean - Tracheostomy 07/24/18, s/p bronchoscopy 08/23 - Patient had tolerated trach collars in early Aug 2018; however she has been on vent to trach since. Fi02: 40% - Bronchoscopy (08/23/18) by Dr. Lozada - Bronchial washings: Pseudomonas Aeruginosa - Fungal Cx: negative - Mycobacterial Cx: negative - Chest physiotherapy - Most recent CT chest (10/27/18): Large bilateral pleural effusions and associated consolidations. Trace pericardial effusion. Borderline cardiomegaly. Enlarged heterogeneous partially imaged thyroid gland. - Monitor CO2 - ABG on FiO2 40 (11/02/18): pH 7.34, pCO2 29, pO2 106 - Start Sodium bicarb 650 mg PEG BID - Pulmonary consulted (Neville) Anemia 2/2 to Chronic Diseases +/- Dysfunctional uterine bleeding, stable - Hg >7 today 11/14 - Stool occult blood negative - Iron normal, TIBC low, Iron saturation normal, Ferritin normal - B12, folate normal - Vaginal US: thickened endometrium - Transfused pRBC: 1 unit 07/22/18, 2 units 08/13/18, 1 unit 08/17/18, 1 unit 08/23/18, 1 unit 11/15/18 - OBGYN consulted (Gilberto)- no hysterectomy - During transfusion pt went hypotensive 77/41, PRBC adm rate increased from 120 to 150, 1L NS bolus w/ albumin IVPB on other arm - BP improved to 91/51after [employer] Upper Extremity swelling bilateral - f/u upper ext dopplers : neg - holding anticoags due to vaginal bleeding - Ordered PICC today however Dash was unable to get access after one attempt and does not want to try again, will consult IR: they dont want to do it until blood cultures read - Mid Line in place, PICC pending BCs Distended abdomen- resolving BM yesterday - AXR (10/28/18): Nonspecific bowel gas pattern with relative paucity of bowel gas. - Repeat AXR (11/02/18): Normal bowel gas pattern. - PEG tube feeds goal rate 40:Pulmocare - Reglan 10 mg IV Q6H - Miralax PEG BID - Simethicone 80 mg PEG QID Pleural effusions- s/p bilateral chest tubes - Multiple chest tubes and thoracenteses for effusions, most recent s/p bilateral chest tubes 10/27 - Pleural fluid from 10/13/18 - WBC 794, RBC 2083, tot cells 100, neutrophils 87% - Tot prot<3, LDH 145, glucose 146 - CT chest (10/27/18): Placment of 8.5 Bruneian pigtail drainage catheter within right and left pleural space - Most recent CXR (10/31/18): Status post bilateral chest tube placements. Marked reduction of bilateral pleural effusions, commensurate re-expansion of both lungs. - Repeat CXR 11/02: Worsening pulmonary edema - Discontinue IVF - IR consulted (Partha) - Pulmonology consulted (Neville) Thyroid disorder - Thyroid US (07/16/18): Heterogeneous thyroid echotexture. Numerous nodules as described above. Suggest percutaneous biopsy of the following suspicious nodules; 1.8 x 0.9 x 1.7 cm right lower pole nodule, 1.0 x 0.7 x 0.9 cm right upper pole lesion with intracystic vascular nodule, complex left upper pole nodule measuring 2.1 x 1.5 x 1.8 cm. - Note: Initial thyroid studies taken before amiodarone was given- this is NOT amiodarone induced - TSH <0.02 in 07/2018, 10/31/18 TSH 18.10 - Free T4 >3 in 07/2018, 10/31/2018 free T4 0.24 - Recheck TSH, free T4 on 11/08/18 - Methimazole to 10 mg PO Q8H - Off Propranolol 5 mg PO TID due to hypotension - Endocrinology consulted (Irwin) Hypotension, improved, stable - Remains stable in 100s-120s/50s-60s - Monitor albumin, administer PRN doses - Midodrine 10 mg PEG TID Atrial fibrillation RVR (resolved) - EKG (10/29/18): Afib HR 130 - Cardiology consulted (Nolan) Deconditioning - Patient needs aggressive continued PT/OT- PT signed off as patient does not follow directions - Nursing and move patient OOB to chair - Social work note (08/09/18): patient is undocumented, has not health insurance, discharge planning will be at home with Septic Shock 2/2 Pneumonia and Urinary Tract Infection (VRE and Pseudomonas)- urinary retention - Off pressors (previously on 3) - Mild leukocytosis (12.4) - Afebrile since 10/21/18 - Procal 1.49 on 11/01/18, 0.66 on 10/21/18 - CXR (11/02/18): worsening pulmonary edema - Most recent blood cultures negative - Most recent urine cultures (10/21/18) +VRE/Pseudomonas, suspect patient likely colonized - Mcintyre in place - Midline removed 11/01/18 - PICC team unable to insert PICC line 11/13/18 - Flomax 0.4 mg PEG daily - Cefepime 1 g Q12H- started 10/27 - ID consulted (Vinod) - low grade fever today f/u bc and procal Apical thrombus - Echo (07/07/18) before cardiac arrest: EF 40-45% - Echo (07/10/19) after cardiac arrest: EF 40%, LV large apical hypokinesis, large 30x20 mm soft tissue apical sessile mass suggestive of thrombus - Echo (08/17/19): LV clot, no significant change - Too high risk for HUBERT - Previously on heparin gtt, Eliquis- stopped due to anemia and vaginal bleeding - ASA 81 mg PEG daily LLE Deep vein thrombosis s/p IVC filter - Venous Doppler (07/18/18): Acute thrombosis of the left common femoral and femoral veins with severe reduction of the venous return - Resolved on repeat imaging - Previously on heparin gtt, Eliquis- stopped due to anemia and vaginal bleeding - s/p IVC filter on 08/23/18 - Vasc surgery consulted (Vicky) Type 2 diabetes mellitus, chronic - A1c: 7.8 - Hypoglycemia protocol - Accuchecks Q6H Vtach- Code blue x2 (07/10/18) - Previously on amiodarone ggt - Cardiology consulted (Nolan) Acute kidney failure, resolved - Required dialysis early in admission before code blues - Monitor BUN, Cr Shock liver, resolved - Hepatitis panel negative - HIV negative - Monitor LFTs Ppx: VTE: SCDs GI: Protonix 40mg PEG Q12H PEG: Pulmocare goal rate 40 mL/hr- feeds restarted 2/ * Lactobacillus 1 cap PEG Q12H * Multivitamin PEG daily * Vitamin C 1,000 PEG daily * Vitamin A&E Code status: full code- Palliative consulted Case reviewed with Dr. Leahy <Saira Leahy V - Last Filed: 11/17/18 16:04> Objective - Vital Signs/Intake and Output Vital Signs (last 24 hours): Temp Pulse Resp BP Pulse Ox 98.5 F 72 20 122/67 100 11/17/18 07:43 11/17/18 04:00 11/17/18 07:43 11/17/18 09:00 11/17/18 04:00 Intake and Output: 11/17/18 11/17/18 06:59 18:59 Intake Total 570 990 Output Total 30 1270 Balance 540 -280 - Medications Medications: Current Medications Albuterol/Ipratropium (Duoneb 3 Mg/0.5 Mg (3 Ml) Ud) 3 ml INH RQ6 COUNTS INCLUDE 234 BEDS AT THE [facility] Last Admin: 11/17/18 13:35 Dose: 3 ml Ascorbic Acid (Vitamin C 500 Mg Tab) 1,000 mg NG DAILY COUNTS INCLUDE 234 BEDS AT THE [facility] Last Admin: 11/17/18 10:36 Dose: 1,000 mg Aspirin (Aspirin Chewable) 81 mg GT DAILY COUNTS INCLUDE 234 BEDS AT THE [facility] Last Admin: 11/14/18 11:00 Dose: 81 mg Dextrose (Dextrose 50% Inj) 0 ml IVP .STAT PRN; Protocol PRN Reason: Hypoglycemia Protocol Dextrose (Glutose 15) 0 gm PO .ONCE PRN; Protocol PRN Reason: Hypoglycemia Protocol Glucagon (Glucagen Diagnostic Kit) 0 mg IM .STAT PRN; Protocol PRN Reason: Hypoglycemia Protocol Cefepime HCl 1 gm/ Dextrose 50 mls @ 100 mls/hr IVPB Q12H COUNTS INCLUDE 234 BEDS AT THE [facility]; Protocol Last Admin: 11/17/18 09:30 Dose: 100 mls/hr Lactobacillus Acidophilus (Lactobacillus) 1 cap PO BID COUNTS INCLUDE 234 BEDS AT THE [facility] Last Admin: 11/17/18 10:37 Dose: 1 cap Methimazole (Tapazole) 10 mg PO Q8 COUNTS INCLUDE 234 BEDS AT THE [facility] Last Admin: 11/17/18 14:34 Dose: 10 mg Metoclopramide HCl (Reglan) 10 mg IVP Q6H COUNTS INCLUDE 234 BEDS AT THE [facility] Last Admin: 11/17/18 09:25 Dose: 10 mg Midodrine (Proamatine) 10 mg PO TID COUNTS INCLUDE 234 BEDS AT [facility] Last Admin: 11/17/18 13:24 Dose: 10 mg Modafinil (Provigil) 50 mg PO DAILY COUNTS INCLUDE 234 BEDS AT [facility] Last Admin: 11/17/18 10:37 Dose: 50 mg Multivitamins (Hexavitamin) 1 tab PEG DAILY COUNTS INCLUDE 234 BEDS AT [facility] Last Admin: 11/17/18 10:36 Dose: 1 tab Pantoprazole Sodium (Protonix Susp) 40 mg GT Q12H COUNTS INCLUDE 234 BEDS AT THE [facility] Last Admin: 11/17/18 10:37 Dose: 40 mg Polyethylene Glycol (Miralax) 17 gm PO BID COUNTS INCLUDE 234 BEDS AT [facility] Last Admin: 11/17/18 12:04 Dose: 17 gm Simethicone (Mylicon Chew Tab) 80 mg PO QID COUNTS INCLUDE 234 BEDS AT THE [facility] Last Admin: 11/17/18 13:56 Dose: 80 mg Sodium Bicarbonate (Sodium Bicarbonate Tab) 650 mg PO BID COUNTS INCLUDE 234 BEDS AT THE [facility] Last Admin: 11/17/18 10:37 Dose: 650 mg Tamsulosin HCl (Flomax) 0.4 mg PEG DAILY COUNTS INCLUDE 234 BEDS AT THE [facility] Last Admin: 11/17/18 10:37 Dose: 0.4 mg - Labs Labs: 11/16/18 08:08 11/16/18 08:08 PT 13.3 SECONDS (9.7-12.2) H 10/23/18 06:05 INR 1.2 10/23/18 06:05 APTT 23 SECONDS (21-34) 10/02/18 06:10 Assessment and Plan (1) Septic shock Status: Acute (2) Acute respiratory failure Status: Acute (3) Urinary tract infection Status: Acute (4) Acute renal failure Status: Acute (5) Aspiration pneumonia Status: Acute (6) Diabetes mellitus Status: Chronic (7) Ventricular arrhythmia Status: Acute (8) Hyperthyroidism Status: Acute (9) Anemia Status: Acute (10) Prophylactic measure Status: Acute Attending/Attestation - Attestation I have personally seen and examined this patient.: Yes I have fully participated in the care of the patient.: Yes I have reviewed all pertinent clinical information, including history, physical exam and plan: Yes Notes (Text): This is a late computer entry for November 15, 2018. Patient seen, examined, and case discussed with day-time resident. patient transferred to the 3rd floor general medical floor in contact isolation room after an extended stay in the stepdown unit in the intensive care unit. This is a 53-year-old female with a prolonged hospitalization for treatment for septic shock complicated by both pneumonia and urinary tract infections, anoxic encephalopathy likely secondary to 2 cardiac arrest during hospitalization, hyperthyroidism which had been controlled on methimazole, which is on hold until nov 05, shock liver which is now recovered, history of apical thrombus which is currently being treated with aspirin and is not on anticoagulation secondary to worsening heavy vaginal bleeding which required multiple blood transfusions during hospitalization, history of left lower extremity DVT which falling 1 month of anticoagulation has radiographically disappeared on repeat ultrasound and has now an IVC filter, as well as diabetes, vitamin D deficiency. CT chest on October 23, 2018 noted large bilateral pleural effusions with associated consolidations. Trace pericardial effusion. Borderline cardiomegaly. Enlarged heterogeneous partially imaged thyroid gland. Tracheostomy tube. Limited visualization of the noncontrast upper abdominal IVC filter. Bilateral renal cyst. Small perihepatic and perisplenic ascites. Pancreatic atrophy. Possible tiny gallstone. Indeterminate 13 mm left upper lobe nodule indeterminate. Patient under underwent chest tube placement with interventional radiology on October [address] placement of 8.5 Bruneian pigtail drain catheter within the right and left pleural space. Trach aspirate noted for Pseudomonas. Patient was placed on Maxipime since 10/27/18 per infectious disease. Pleural fluid shows no growth. Will need to monitor fluid output. Chest xray (11/02/18): worsening pulmonary edema. Stable position of support apparatus including tracheostomy device in bilateral pigtail catheters. Most recent chest xray (11/10/18): interval improved aeration in both lungs. No acute findings. Stable position of bilateral chest tubes. Stable position of tracheostomy tube. Patient is noted to be incontinent of the urine. She has mcintyre which was exchanged on 11/05/18. Procalcitonin is high: 1.49 in light of Pseudomonas pneumonia on 11/01/18 and UTI likely colonizer; repeat procalcitonin 0.24 on 11.09.18. Patient has been on Maxipime 1gm IV Q12H since 10/27/18. Patient remains without fever. White count normalized in today's blood work. Also note patient did underwent a lumbar puncture on September 15 HSV-2 IgM antibody, VDRL, and the West Nile are still pending. Physical therapy had signed off on September 24 because patient is not a candidate because she cannot follow directions. We will reconsult physical therapy and occupational therapy. Patient noted to be forming contractures and marked quite mostly over the right upper thigh winces in tremendous pain when you move it. As well as dependent edema noted both on the upper and lower extremities. Patient would be an ideal candidate for LTAC however she does not have insurance, her is not from this [place] which limits her ability for services. The other thing is patient still remains trach to vent as well. Also to note patient does have sequential compressive stocking since the follow- up venous Doppler which did indicate that the clot had cleared.Patient does have noted muscle wasting. Wound care re-evaluated the patient on 10/05/18 for skin break down over the flexor surfaces over the knee. New recommendations were placed. Patient has noted flexor over the knees. She has dependent edema over t he lower extremities and upper extremities. We have we consulted wound care as well for sacral decub. I did discuss with the nurse they had changed dressing. However she remains in bed since recent transfer to the third floor. Patient's midodrine increased to 10mg PO TID to increase blood pressure. Evening, 10/30/18 patient had an episode of atrial fib RVR which required Lopressor given by nighttime resident. We have repeated thyroid studies with elevated TSH, Free T4 normal; Endocrinology has permited restart of Methiazmole 10mg PO Q8H as of 11/08/18. Patient given dose of Albumin 11/01/18 to help improve blood pressure. Patient ordered for phosphate enema 10/31/18. patient restarted on tube feedings 10/30/18. patient had passed gas overnight but did not have a blood movement. patient pl aced on miralax and reglan to help promote bowel movement. Patient had a small bowel movement on 10/31/18 and is passing gas. Patient had abdominal xray to repeat which showed no obstruction. ABG is essentially normal. Patient's tube feedings restarted on 11/04/18. We will need to monitor to residual and titrate accordingly. Patient noted to do to have liquid stool with PEG feeding at max dose. There is no visible blood and we had to perform a rectal given drop in hemoglobin today at 6.7. Chest Tubes to remain in place for now considering the patient's history of reaccumulation of pleural fluid despite multiple thoracentesis. chest tube noted only 50cc output. Continue Cefepime antibiotic for now until chest tubes remain in place. Patient has a skin tear on the Right Upper Medial Buttock without any evidence of surrounding cellulitis (exam performed with the assistance of PK Mcwilliams) with 11/12/18. Nursing order was placed on 11/11/18 for Medihoney to this area and then to cover with Optifoam Dressing as well as to reposition the patient every 2 hours. Patient remains neurologically the same. No improvement noted. Patient remains s/p trach on vent. FiO2 on 40%. on Duoneb treatments. Patient is off mucoyst because secretions clog up the vent. I did reemphasize with nurse Andi that we do need to continue suction the patient given that she noticeably does clog likely due to secretions from her pneumonia that she cannot clear. Resident Chauncey has received consent for placement for PICC for patient; risks and benefits discussed by resident. vascular nurse, dash to place PICC line 11/13/18. Patient was unable to get PICC line. Patient had low- grade fever of 100.9 Fahrenheit. We have asked PICC line nurse Bebeto Whitten in place and midline for the patient. We will draw new blood cultures and urine urine culture in light in spite of the low-grade temp. Patient remains on Maxipime per infectious disease. Blood work not drawn at time of my rounds will follow up. Patient did receive midline on November 14. Patient does have significant dependent edema in both upper extremities noted swelling over the left hand. Patient also is in extreme pain in both lower extremity. When I do attempt to move both legs he does react to pain. We have attempted to try to move her legs to prevent further contractures. CPK is normal. We will reconsult physical therapy and occupational therapy. Note patient was a rapid response for November 15 for hypotension. Patient noted to be low hemoglobin this morning. No visible vaginal bleeding nor rectal bleeding. Occult blood was performed at bedside. Patient is ordered for CT chest abdomen pelvis with IV contrast and iliofemoral runoff. Patient receiving 1 unit PRBC at bedside and nursing has placed a peripheral axis over the right wrist. Patient again just slowly of 500 cc bolus as well as 1 unit 1 albumin as well. Hemoglobin to be followed posttransfusion. Vitals did remain stable on recheck about 90s over 50s. Patient noted to have poor prognosis though she has survived many things during her hospitalization. Her who remains in high spirits hopes that she will recover and has been persistently at bedside every single day since being hospitalized in July. not present at bedside during the time of my rounds however he noted that he is a frequent visitor every day.
[2018-11-15] MEDS: POLYETHYLENE GLYCOL 3350 17 GM/Dose PACKET PO SCH ×2 (10:02→18:30)
[2018-11-15] MEDS: Vitamins A & D Oint UD Foilpak TOP SCH (10:02)
[2018-11-15] MEDS: Multiple Vitamins Tab PEG SCH (10:02)
[2018-11-15] MEDS: Lactobacillus Acidophilus 500 MU Cap PO SCH ×2 (10:03→18:11)
[2018-11-15] MEDS: Pantoprazole 40 mg Susp UD GT SCH ×2 (10:04→21:35)
[2018-11-15] MEDS: Simethicone 80 mg Chewtab PO SCH ×5 (10:07→21:40)
[2018-11-15] MEDS: Modafinil 50 MG TAB PO SCH (10:07)
[2018-11-15] MEDS ORDERED: Acetaminophen 650mg/20.3ml solution UD PO ONE (13:06)
[2018-11-15] MEDS ORDERED: Sodium Chloride 0.9% 1,000 ML IV ONE (14:34)
--- NOTE | 2018-11-15 15:04 | PCM.RRT ---
<Bhanu Villegas - Last Filed: 11/15/18 15:02> ATMOSPHERIC CHEMIST Nurses Assessment - Situation Date: 07/10/18 Time ATMOSPHERIC CHEMIST was called: 14:55 ATMOSPHERIC CHEMIST Responder Arrival Time:: 14:56 ATMOSPHERIC CHEMIST Location:: Med/Oncology Room Number: 9 ATMOSPHERIC CHEMIST Reason for Call: Tachycardia (Vtach) ATMOSPHERIC CHEMIST Called By: RN - IV IV Inserted during ATMOSPHERIC CHEMIST?: No New IV Insertion Tolerance: Good - Respiratory ATMOSPHERIC CHEMIST Delivery Method: Trach Collar @%, Intubated Was the Patient Intubated?: Yes Was the Patient Placed on a Ventilator?: Yes - Ventilator Settings Mode: PRVC Ventilator Respiratory Rate Settin Ventilator Tidal Volume Settin PEEP/CPAP (cm H2O): 5 SAO2 %: 100 FIO2 (% Oxygen): 40 - Medication Medications Administered During ATMOSPHERIC CHEMIST: Amio 150 IVP. Amio drip @ 1 mg / kg/ hr. 1L NS bolus IV. Ca Gluconate IVPB 2000mg/250ml - Vital Signs Vital Signs: ATMOSPHERIC CHEMIST vitals T 98, HR 91, BP 88/44, RR 12, O296% - [place] Coma Scale Coma Scale Eye Opening: To pain Coma Scale Motor: Withdraw response to pain - Sepsis Screen Part 1 Sepsis Screen Part 1: Hypotensive - Time ATMOSPHERIC CHEMIST Ended Time ATMOSPHERIC CHEMIST Ended: 15:04 I.Reason for ATMOSPHERIC CHEMIST - A) Acute Change in Patient: (Select all that apply): Acute change in SBP below (88) - Neurological Status (Select all that apply): absent: Responsive - Respiratory Oxygen Delivery Method: Trach Collar @%, Intubated - Extremities Exam Additional comments: - Constitutional Appears: Chronically Ill - Head Exam Head Exam: NORMAL INSPECTION, NORMOCEPHALIC - Eye Exam Eye Exam: absent: Nystagmus, Scleral icterus - ENT Exam ENT Exam: Mucous Membranes Dry - Neck Exam Additional comments: trach with vent in place - Respiratory Exam Respiratory Exam: NORMAL BREATHING PATTERN, secretions appear increased - Cardiovascular Exam Cardiovascular Exam: REGULAR RHYTHM, +S1, +S2 - GI/Abdominal Exam GI & Abdominal Exam: Soft, Normal Bowel Sounds. absent: Distended, Firm, Guarding, Rigid, Tenderness, Hyperactive Bowel Sounds Additional comments: noted PEG tube in place w dressing c/d/i - Exam Additional comments: mcintyre in place - Extremities Exam Extremities Exam: Normal Inspection. absent: Calf Tenderness, Pedal Edema L arm worsening edema - Neurological Exam Neurological Exam: absent: Alert, Oriented x3 - Skin Skin Exam: Dry, Normal Color Additional comments: [address] outputting fluid skin tear on buttock, dressed with medihoney and optifoam dressing Plan - Assessment of Findings&Treatment Plan Pt was seen 5min ago before ATMOSPHERIC CHEMIST was called, Pt is getting blood transfusion: 1 u PRBC sbp had went down to 77 Increased transfusion rate to 150 gave NS bolus 1L / 1hr w/ albumin IVPB After ATMOSPHERIC CHEMIST slowed down NS bolus to /2hrs new vitals after ATMOSPHERIC CHEMIST T98.5, HR 87, BP 92/51, RR 12, O2 96% on trach <Saira Leahy V - Last Filed: 11/17/18 15:54> Attending/Attestation - Attestation I have personally seen and examined this patient.: Yes I have fully participated in the care of the patient.: Yes I have reviewed all pertinent clinical information, including history, physical exam and plan: Yes Notes (Text): This is a late computer entry for November 15, 2018. Responded to rapid response with hypotension. Patient is a 53-year-old 3-year-old female with a significant past medical history for anoxic brain injury secondary to to subsequent cardiac arrest while hospitalized in the intensive care. An apical mural thrombus following [place], hyperthyroidism, associated arrhythmia, recovery from renal failure, and currently on Maxipime for pseudomonal pneumonia. Patient noted hemoglobin and around 6.76.8. Patient received midline yesterday. Patient to be transfused 1 unit of PRBC today. Patient noted with nursing staff to be systolic was 7040s. Patient has both a midline on the left upper extremity as well as a peripheral 20 placed by nurse at time of ATMOSPHERIC CHEMIST. Did put in a 1 L fluid bolus reduced to 500 cc over slowly given that patient is quite thin as well as a unit of albumin as well. Hemoglobin did did improve posttransfusion CBC. He blood pressure did improve. Patient normal blood pressure hovers around a systolic around 90s-100. Patient is ordered for CT chest abdomen pelvis with IV contrast to rule out any type of retroperitoneal bleed. Patient noted third spacing dependent edema both in the upper extremities as well as the left lower right lower extremities as well. We did do a rectal prior to the event no blood observed. And there is no vaginal bleeding exam noted again prior to rapid response. Patient is hemodynamically stable. Did discuss with chico Purvis.
[2018-11-15 15:34] LABS: ARTERIAL BLOOD GAS HCO3 20.9 mmol/L (21-28); ARTERIAL BLOOD GAS O2 SAT 99.8 % (95-98); ARTERIAL BLOOD GAS PCO2 32 mm/Hg (35-45); ARTERIAL BLOOD GAS PH 7.38 (7.35-7.45); ARTERIAL BLOOD GAS PO2 256 mm/Hg (80-100); ARTERIAL BLOOD GAS TCO2 19.9 mmol/L (22-28)
[2018-11-15] MEDS ORDERED: Iodixanol 320 MG/ML 100 ML BOTTLE IV ONE (18:26)
[2018-11-15] MEDS ORDERED: Sodium Chloride 0.9% 500 ML IV ONE (22:04)
[2018-11-15] MEDS ORDERED: Albumin Human 25% (12.5 gm/50 ml) IV ONE (22:04)
[2018-11-15 22:46] LABS: HEMOGLOBIN 7.3 g/dL (11.0-16.0); MEAN CELL VOLUME 89.9 fL (81.0-99.0); MEAN CORPUSCULAR HEMOGLOBIN 29.3 pg (27.0-31.0); MEAN CORPUSCULAR HGB CONC 32.6 g/dL (33.0-37.0); MEAN PLATELET VOLUME 8.4 fL (7.2-11.7); RBC 2.47 Mil/uL (3.80-5.20); RED CELL DISTRIBUTION WIDTH 18.9 % (11.5-14.5); WHITE BLOOD COUNT 7.7 K/uL (4.8-10.8)
--- NOTE | 2018-11-16 00:02 | PCM.RRT ---
MANAGER PROCESS IMPROVEMENT Nurses Assessment - Situation Date: 11/15/18 Time MANAGER PROCESS IMPROVEMENT was called: 23:05 MANAGER PROCESS IMPROVEMENT Responder Arrival Time:: 23:06 MANAGER PROCESS IMPROVEMENT Location:: Med/Oncology Room Number: 355-A MANAGER PROCESS IMPROVEMENT Reason for Call: Hypotension MANAGER PROCESS IMPROVEMENT Called By: RN - IV IV Inserted during MANAGER PROCESS IMPROVEMENT?: No IV Fluids Initiated During MANAGER PROCESS IMPROVEMENT?: 500cc NS - Respiratory MANAGER PROCESS IMPROVEMENT Delivery Method: Trach Collar @% (40) Received Nebulizer Treatments: No Was the Patient Ventilated with Bag/Mask 100% O2?: No Secretions Suctioned?: No Was the Patient Intubated?: No Was the Patient Placed on a Ventilator?: Yes (already on vent) - Ventilator Settings Mode: PRVC Ventilator Respiratory Rate Settin Ventilator Tidal Volume Settin PEEP/CPAP (cm H2O): 5 SAO2 %: 100 FIO2 (% Oxygen): 40 - Medication Medications Administered During MANAGER PROCESS IMPROVEMENT: Albumin - Diagnostic Test Ordered EKG: No Chest X-Ray: No CT Scan: No CPR started during MANAGER PROCESS IMPROVEMENT?: No - [place] Coma Scale Coma Scale Eye Opening: To pain Coma Scale Motor: Withdraw response to pain Coma Scale Verbal: No response Coma Scale Total: 7 - Sepsis Screen Part 1 Sepsis Screen Part 1: Hypotensive - Time MANAGER PROCESS IMPROVEMENT Ended Time MANAGER PROCESS IMPROVEMENT Ended: 23:15 - Vital Signs at end of MANAGER PROCESS IMPROVEMENT Vital Signs at end of MANAGER PROCESS IMPROVEMENT: 90/49 - Recommendations 5) MANAGER PROCESS IMPROVEMENT Level of Care Recommendations: Remain in current setting Notifications: Attending Physician I.Reason for MANAGER PROCESS IMPROVEMENT - A) Acute Change in Patient: (Select all that apply): Acute change in SBP below Subjective: MANAGER PROCESS IMPROVEMENT called by nurse for SBP 71. Patient received 500 cc NS earlier in the evening that raised SBP from 75 to 81. No change in clinical presentation. Patient is on vent. She is responsive to painful stimuli. Patient currently receiving albumin. Patient was placed in Trendelenberg. Prelim read from CT A/P does not show internal bleeding. 1u pRBC earlier in the day raised Hgb from 6.8 to 7.3. Another 500 cc bolus started. SBP up to 90 by end of MANAGER PROCESS IMPROVEMENT. Patient's baseline SBP is 90s-110s. - Neurological Status (Select all that apply): Alert, Responsive, Lethargic. absent: Oriented, Verbal, Follows Commands, Aggressive - Respiratory Oxygen Delivery Method: Trach Collar @% (40) - Constitutional Appears: No Acute Distress, Chronically Ill - Head Head Exam: ATRAUMATIC, NORMAL INSPECTION - Eyes Eye Exam: PERRL - Respiratory Exam Respiratory Exam: Decreased Breath Sounds Additional comments: trach on vent b/l chest tubes - Cardiovascular Exam Cardiovascular Exam: RRR, +S1, +S2 - GI/Abdominal Exam GI & Abdominal Exam: Distended, Soft - Neurological Exam Neurological Exam: absent: Oriented x3 Additional exam: at baseline- nonverbal, does not follow commands, responsive to painful stimuli - Extremities Exam Additional comments: edematous b/l UEs Plan - Assessment of Findings&Treatment Plan - Trendelenberg - NS 500 cc bolus - Albumin x1 - 1u pRBC - Vitals [id number] x4 then Q1H - Consider ICU consult if SBP returns to 70s
[2018-11-16] MEDS: Albuterol-Ipratrop 3 mg / 0.5 (3 ml) UD INH SCH ×4 (02:10→20:40)
--- NOTE | 2018-11-16 07:05 | CP.PCM.PN ---
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 Still w/ ams. Objective - Vital Signs/Intake and Output Vital Signs (last 24 hours): Temp Pulse Resp BP Pulse Ox 98 F 84 23 93/50 L 100 11/16/18 06:00 11/16/18 06:00 11/16/18 06:00 11/16/18 06:00 11/16/18 06:00 Intake and Output: 11/16/18 11/16/18 06:59 18:59 Intake Total 3120 Output Total 651 Balance 2469 - Medications Medications: Current Medications Albuterol/Ipratropium (Duoneb 3 Mg/0.5 Mg (3 Ml) Ud) 3 ml INH RQ6 [facility] Last Admin: 11/16/18 02:10 Dose: 3 ml Ascorbic Acid (Vitamin C 500 Mg Tab) 1,000 mg NG DAILY [facility] Last Admin: 11/15/18 10:02 Dose: 1,000 mg Aspirin (Aspirin Chewable) 81 mg GT DAILY [facility] Last Admin: 11/14/18 11:00 Dose: 81 mg Dextrose (Dextrose 50% Inj) 0 ml IVP .STAT PRN; Protocol PRN Reason: Hypoglycemia Protocol Dextrose (Glutose 15) 0 gm PO .ONCE PRN; Protocol PRN Reason: Hypoglycemia Protocol Glucagon (Glucagen Diagnostic Kit) 0 mg IM .STAT PRN; Protocol PRN Reason: Hypoglycemia Protocol Cefepime HCl 1 gm/ Dextrose 50 mls @ 100 mls/hr IVPB Q12H MANOL[facility]; Protocol Last Admin: 11/15/18 21:38 Dose: 100 mls/hr Lactobacillus Acidophilus (Lactobacillus) 1 cap PO BID [facility] Last Admin: 11/15/18 18:11 Dose: 1 cap Methimazole (Tapazole) 10 mg PO Q8 [facility] Last Admin: 11/16/18 05:13 Dose: 10 mg Metoclopramide HCl (Reglan) 10 mg IVP Q6H [facility] Last Admin: 11/16/18 04:03 Dose: 10 mg Midodrine (Proamatine) 10 mg PO TID [facility] Last Admin: 11/15/18 21:45 Dose: 10 mg Modafinil (Provigil) 50 mg PO DAILY [facility] Last Admin: 11/15/18 10:07 Dose: 50 mg Multivitamins (Hexavitamin) 1 tab PEG DAILY [facility] Last Admin: 11/15/18 10:02 Dose: 1 tab Pantoprazole Sodium (Protonix Susp) 40 mg GT Q12H [facility] Last Admin: 11/15/18 21:35 Dose: 40 mg Polyethylene Glycol (Miralax) 17 gm PO BID [facility] Last Admin: 11/15/18 18:30 Dose: Not Given Simethicone (Mylicon Chew Tab) 80 mg PO QID [facility] Last Admin: 11/15/18 21:40 Dose: 80 mg Sodium Bicarbonate (Sodium Bicarbonate Tab) 650 mg PO BID [facility] Last Admin: 11/15/18 18:11 Dose: 650 mg Tamsulosin HCl (Flomax) 0.4 mg PEG DAILY [facility] Last Admin: 11/15/18 10:02 Dose: 0.4 mg Vitamin A (Vitamin A & D Oint Ud Foilpak) 0.5 ea TOP DAILY [facility] Last Admin: 11/15/18 10:02 Dose: 0.5 ea - Labs Labs: 11/15/18 22:38 11/15/18 07:02 PT 13.3 SECONDS (9.7-12.2) H 10/23/18 06:05 INR 1.2 10/23/18 06:05 APTT 23 SECONDS (21-34) 10/02/18 06:10 - Additional Findings Additional findings: - Constitutional Appears: Chronically Ill - Head Exam Head Exam: NORMAL INSPECTION, NORMOCEPHALIC - Eye Exam Eye Exam: absent: Nystagmus, Scleral icterus - ENT Exam ENT Exam: Mucous Membranes Dry - Neck Exam Additional comments: trach with vent in place - Respiratory Exam Respiratory Exam: NORMAL BREATHING PATTERN, secretions appear increased - Cardiovascular Exam Cardiovascular Exam: REGULAR RHYTHM, +S1, +S2 - GI/Abdominal Exam GI & Abdominal Exam: Soft, Normal Bowel Sounds. absent: Distended, Firm, Guarding, Rigid, Tenderness, Hyperactive Bowel Sounds Additional comments: noted PEG tube in place w dressing c/d/i - Exam Additional comments: mcintyre in place - Extremities Exam Extremities Exam: Normal Inspection. absent: Calf Tenderness, Pedal Edema L arm worsening edema - Neurological Exam Neurological Exam: absent: Alert, Oriented x3 - Skin Skin Exam: Dry, Normal Color Additional comments: [address] outputting fluid skin tear on buttock, dressed with medihoney and optifoam dressing Assessment and Plan - Assessment and Plan (Free Text) Assessment: This is a 52 yo female originally admitted to the ICU for septic shock 2/2 to PNA/UTI worsened by cardiac arrest and anoxic brain injury. Patient found to have apical thrombus in heart. Patient is s/p trach and PEG. Patient still unable to be weaned off vent. She has had multiple complications, including DVT and infections (PNA, UTI). s/p IVC filter 08/23. s/p multiple chest tube placements Sep 19-Oct 21. s/p LP 09/15. Patient has shown minimal improvement of cognitive function during the course of this hospitalization. Patient does not have any insurance and therefore cannot be placed in rehab/NH. Multiple conversations with regarding poor prognosis- he wishes to keep her full code. Palliative and pastoral care have been on board. Plan: Altered mental status/Encephalopathy- suspect anoxic encephalopathy - Code Blue 07/10 and 07/20 - Moved to med surg floor 11/08 - Chest tubes x2 in place - Off sedation - Modafinil 50 mg PO daily - CT head (08/28/18): No hemorrhage or midline shift - MRI brain (09/08/18): No definite mass effect or suspicious extra axial collection. No evidence of acute or subacute brain infarction at this time. Borderline pattern of hydrocephalus. - LP 09/15/18: normal opening pressure - LDH 30, glucose 69, tot prot 67 - CSF Cx: no growth - Other CSF studies pending- called lab 11/01, they will contact [facility] for update - Neurology consulted (George/Ankit) Acute respiratory failure- s/p trach on vent, unable to wean - Tracheostomy 07/24/18, s/p bronchoscopy 08/23 - Patient had tolerated trach collars in early Aug 2018; however she has been on vent to trach since. Fi02: 40% - Bronchoscopy (08/23/18) by Dr. Lozada - Bronchial washings: Pseudomonas Aeruginosa - Fungal Cx: negative - Mycobacterial Cx: negative - Chest physiotherapy - Most recent CT chest (10/27/18): Large bilateral pleural effusions and associated consolidations. Trace pericardial effusion. Borderline cardiomegaly. Enlarged heterogeneous partially imaged thyroid gland. - Monitor CO2 - ABG on FiO2 40 (11/02/18): pH 7.34, pCO2 29, pO2 106 - Start Sodium bicarb 650 mg PEG BID - Pulmonary consulted (Neville) Anemia 2/2 to Chronic Diseases +/- Dysfunctional uterine bleeding, stable - Hg 10 - Stool occult blood negative - Iron normal, TIBC low, Iron saturation normal, Ferritin normal - B12, folate normal - Vaginal US: thickened endometrium - Transfused pRBC: 1 unit 07/22/18, 2 units 08/13/18, 1 unit 08/17/18, 1 unit 08/23/18, 2 unit 11/15/18 - OBGYN consulted (Gilberto)- no hysterectomy - During transfusion pt went hypotensive 77/41, PRBC adm rate increased from 120 to 150, 1L NS bolus w/ albumin IVPB on other arm - BP improved to 91/51after [employer] UTI - gram pos cocci in UC, possible contamination - repeat UC - cefepime IVPB Upper Extremity swelling bilateral - f/u upper ext dopplers : neg - holding anticoags due to vaginal bleeding - Mid Line in place, PICC pending BCs Distended abdomen- resolving BM yesterday - AXR (10/28/18): Nonspecific bowel gas pattern with relative paucity of bowel gas. - Repeat AXR (11/02/18): Normal bowel gas pattern. - PEG tube feeds goal rate 40:Pulmocare - Reglan 10 mg IV Q6H - Miralax PEG BID - Simethicone 80 mg PEG QID Pleural effusions- s/p bilateral chest tubes - Multiple chest tubes and thoracenteses for effusions, most recent s/p bilateral chest tubes 10/27 - Pleural fluid from 10/13/18 - WBC 794, RBC 2083, tot cells 100, neutrophils 87% - Tot prot<3, LDH 145, glucose 146 - CT chest (10/27/18): Placment of 8.5 Mongolian pigtail drainage catheter within right and left pleural space - Most recent CXR (10/31/18): Status post bilateral chest tube placements. Marked reduction of bilateral pleural effusions, commensurate re-expansion of both lungs. - Repeat CXR 11/02: Worsening pulmonary edema - IR consulted (Partha) - Pulmonology consulted (Neville) Thyroid disorder - Thyroid US (07/16/18): Heterogeneous thyroid echotexture. Numerous nodules as described above. Suggest percutaneous biopsy of the following suspicious nodules; 1.8 x 0.9 x 1.7 cm right lower pole nodule, 1.0 x 0.7 x 0.9 cm right upper pole lesion with intracystic vascular nodule, complex left upper pole nodule measuring 2.1 x 1.5 x 1.8 cm. - Note: Initial thyroid studies taken before amiodarone was given- this is NOT amiodarone induced - TSH <0.02 in 07/2018, 10/31/18 TSH 18.10 - Free T4 >3 in 07/2018, 10/31/2018 free T4 0.24 - wnl TSH, free T4 on 11/08/18 - Methimazole to 10 mg PO Q8H - Off Propranolol 5 mg PO TID due to hypotension - Endocrinology consulted (Irwin) Hypotension, improved, stable - Remains stable in 100s-120s/50s-60s - Monitor albumin, administer PRN doses - Midodrine 10 mg PEG TID Atrial fibrillation RVR (resolved) - EKG (10/29/18): Afib HR 130 - Cardiology consulted (Nolan) Deconditioning - Patient needs aggressive continued PT/OT- PT signed off as patient does not follow directions - Nursing and move patient OOB to chair - Social work note (08/09/18): patient is undocumented, has not health insurance, discharge planning will be at home with Septic Shock 2/2 Pneumonia and Urinary Tract Infection (VRE and Pseudomonas)- urinary retention - Off pressors (previously on 3) - Mild leukocytosis (12.4) - Afebrile since 10/21/18 - Procal 1.49 on 11/01/18, 0.66 on 10/21/18 - CXR (11/02/18): worsening pulmonary edema - Most recent blood cultures negative - Most recent urine cultures (10/21/18) +VRE/Pseudomonas, suspect patient likely colonized - Mcintyre in place - Midline removed 11/01/18 - PICC team unable to insert PICC line 11/13/18 - Flomax 0.4 mg PEG daily - Cefepime 1 g Q12H- started 10/27 - ID consulted (Vinod) - neg bc - 0.93 procal Apical thrombus - Echo (07/07/18) before cardiac arrest: EF 40-45% - Echo (07/10/19) after cardiac arrest: EF 40%, LV large apical hypokinesis, large 30x20 mm soft tissue apical sessile mass suggestive of thrombus - Echo (08/17/19): LV clot, no significant change - Too high risk for HUBERT - Previously on heparin gtt, Eliquis- stopped due to anemia and vaginal bleeding - ASA 81 mg PEG daily LLE Deep vein thrombosis s/p IVC filter - Venous Doppler (07/18/18): Acute thrombosis of the left common femoral and femoral veins with severe reduction of the venous return - Resolved on repeat imaging - Previously on heparin gtt, Eliquis- stopped due to anemia and vaginal bleeding - s/p IVC filter on 08/23/18 - Vasc surgery consulted (Vicky) Type 2 diabetes mellitus, chronic - A1c: 7.8 - Hypoglycemia protocol - Accuchecks Q6H Vtach- Code blue x2 (07/10/18) - Previously on amiodarone ggt - Cardiology consulted (Nolan) Acute kidney failure, resolved - Required dialysis early in admission before code blues - Monitor BUN, Cr Shock liver, resolved - Hepatitis panel negative - HIV negative - Monitor LFTs Ppx: VTE: SCDs GI: Protonix 40mg PEG Q12H PEG: Pulmocare goal rate 40 mL/hr- feeds restarted 2/2 * Lactobacillus 1 cap PEG Q12H * Multivitamin PEG daily * Vitamin C 1,000 PEG daily * Vitamin A&E Code status: full code- Palliative consulted Case reviewed with Dr. Leahy <Saira Leahy V - Last Filed: 11/17/18 16:12> Objective - Vital Signs/Intake and Output Vital Signs (last 24 hours): Temp Pulse Resp BP Pulse Ox 98.5 F 72 20 122/67 100 11/17/18 07:43 11/17/18 04:00 11/17/18 07:43 11/17/18 09:00 11/17/18 04:00 Intake and Output: 11/17/18 11/17/18 06:59 18:59 Intake Total 570 990 Output Total 30 1270 Balance 540 -280 - Medications Medications: Current Medications Albuterol/Ipratropium (Duoneb 3 Mg/0.5 Mg (3 Ml) Ud) 3 ml INH RQ6 [facility] Last Admin: 11/17/18 13:35 Dose: 3 ml Ascorbic Acid (Vitamin C 500 Mg Tab) 1,000 mg NG DAILY [facility] Last Admin: 11/17/18 10:36 Dose: 1,000 mg Aspirin (Aspirin Chewable) 81 mg GT DAILY [facility] Last Admin: 11/14/18 11:00 Dose: 81 mg Dextrose (Dextrose 50% Inj) 0 ml IVP .STAT PRN; Protocol PRN Reason: Hypoglycemia Protocol Dextrose (Glutose 15) 0 gm PO .ONCE PRN; Protocol PRN Reason: Hypoglycemia Protocol Glucagon (Glucagen Diagnostic Kit) 0 mg IM .STAT PRN; Protocol PRN Reason: Hypoglycemia Protocol Cefepime HCl 1 gm/ Dextrose 50 mls @ 100 mls/hr IVPB Q12H [facility]; Protocol Last Admin: 11/17/18 09:30 Dose: 100 mls/hr Lactobacillus Acidophilus (Lactobacillus) 1 cap PO BID [facility] Last Admin: 11/17/18 10:37 Dose: 1 cap Methimazole (Tapazole) 10 mg PO Q8 [facility] Last Admin: 11/17/18 14:34 Dose: 10 mg Metoclopramide HCl (Reglan) 10 mg IVP Q6H [facility] Last Admin: 11/17/18 09:25 Dose: 10 mg Midodrine (Proamatine) 10 mg PO TID [facility] Last Admin: 11/17/18 13:24 Dose: 10 mg Modafinil (Provigil) 50 mg PO DAILY [facility] Last Admin: 11/17/18 10:37 Dose: 50 mg Multivitamins (Hexavitamin) 1 tab PEG DAILY [facility] Last Admin: 11/17/18 10:36 Dose: 1 tab Pantoprazole Sodium (Protonix Susp) 40 mg GT Q12H [facility] Last Admin: 11/17/18 10:37 Dose: 40 mg Polyethylene Glycol (Miralax) 17 gm PO BID [facility] Last Admin: 11/17/18 12:04 Dose: 17 gm Simethicone (Mylicon Chew Tab) 80 mg PO QID [facility] Last Admin: 11/17/18 13:56 Dose: 80 mg Sodium Bicarbonate (Sodium Bicarbonate Tab) 650 mg PO BID [facility] Last Admin: 11/17/18 10:37 Dose: 650 mg Tamsulosin HCl (Flomax) 0.4 mg PEG DAILY [facility] Last Admin: 11/17/18 10:37 Dose: 0.4 mg - Labs Labs: 11/16/18 08:08 11/16/18 08:08 PT 13.3 SECONDS (9.7-12.2) H 10/23/18 06:05 INR 1.2 10/23/18 06:05 APTT 23 SECONDS (21-34) 10/02/18 06:10 Assessment and Plan (1) Septic shock Status: Acute (2) Acute respiratory failure Status: Acute (3) Urinary tract infection Status: Acute (4) Acute renal failure Status: Acute (5) Aspiration pneumonia Status: Acute (6) Diabetes mellitus Status: Chronic (7) Ventricular arrhythmia Status: Acute (8) Hyperthyroidism Status: Acute (9) Anemia Status: Acute (10) Prophylactic measure Status: Acute Attending/Attestation - Attestation I have personally seen and examined this patient.: Yes I have fully participated in the care of the patient.: Yes I have reviewed all pertinent clinical information, including history, physical exam and plan: Yes Notes (Text): This is a late computer entry for November 16, 2018. Patient seen, examined, and case discussed with day-time resident. patient transferred to the 3rd floor general medical floor in contact isolation room after an extended stay in the stepdown unit in the intensive care unit. This is a 53-year-old female with a prolonged hospitalization for treatment for septic shock complicated by both pneumonia and urinary tract infections, anoxic encephalopathy likely secondary to 2 cardiac arrest during hospitalization, hyperthyroidism which had been controlled on methimazole, which is on hold until nov 05, shock liver which is now recovered, history of apical thrombus which is currently being treated with aspirin and is not on anticoagulation secondary to worsening heavy vaginal bleeding which required multiple blood transfusions during hospitalization, history of left lower extremity DVT which falling 1 month of anticoagulation has radiographically disappeared on repeat ultrasound and has now an IVC filter, as well as diabetes, vitamin D deficiency. Patient is noted to be incontinent of the urine. She has mcintyre which was exchanged on 11/05/18. Procalcitonin is high: 1.49 in light of Pseudomonas pneumonia on 11/01/18 and UTI likely colonizer; repeat procalcitonin 0.24 on 11.09.18. Patient has been on Maxipime 1gm IV Q12H since 10/27/18. Patient remains without fever. White count normalized in today's blood work. Also note patient did underwent a lumbar puncture on September 15 HSV-2 IgM antibody, VDRL, and the West Nile are still pending. Pro-calcitonin repeated today. Patient noted to have mild fever of 100.9 on the . Blood cultures remain negative. Urine culture noting gram-positive but she is a known colonizer. Physical therapy had signed off on September 24 because patient is not a candidate because she cannot follow directions. We have reconsulted physical therapy. Patient noted to be forming contractures and marked quite mostly over the right upper thigh winces in tremendous pain when you move it. As well as dependent edema noted both on the upper and lower extremities. I spoke with Raji physical therapist in regards to potential contractures and also noted involvement in her care. Patient does have significant dependent edema in both upper extremities noted swelling over the left hand. Patient also is in extreme pain in both lower extremity. When I do attempt to move both legs he does react to pain. We have attempted to try to move her legs to prevent further contractures. CPK is normal. Advised for warm compresses. Patient would be an ideal candidate for LTAC however she does not have insur ance, her is not from this country which limits her ability for services. The other thing is patient still remains trach to vent as well. Evening, 10/30/18 patient had an episode of atrial fib RVR which required Lopressor given by nighttime resident. We have repeated thyroid studies with e levated TSH, Free T4 normal; Endocrinology has permited restart of Methiazmole 10mg PO Q8H as of 11/08/18. Patient given dose of Albumin 11/01/18 to help improve blood pressure. Patient ordered for phosphate enema 10/31/18. patient restarted on tube feedings 10/30/18. patient had passed gas overnight but did not have a blood movement. patient placed on miralax and reglan to help promote bowel movement. Patient had a small bowel movement on 10/31/18 and is passing gas. Patient had abdominal xray to re peat which showed no obstruction. ABG is essentially normal. Patient's tube feedings restarted on 11/04/18. We will need to monitor to residual and titrate accordingly. Patient noted to do to have liquid stool with PEG feeding at max dose. There is no visible blood and we had to perform a rectal given drop in hemoglobin today at 6.7. Posttransfusion CBC noted improvement to hemoglobin of 10. No acute findings to explain acute drop in hemoglobin noted in CT scans. Chest Tubes to remain in place for now considering the patient's history of reaccumulation of pleural fluid despite multiple thoracentesis. chest tube noted only 50cc output. Continue Cefepime antibiotic for now until chest tubes remain in place. Patient has a skin tear on the Right Upper Medial Buttock without any evidence o f surrounding cellulitis (exam performed with the assistance of PK Mcwilliams) with 11/12/18. Nursing order was placed on 11/11/18 for Medihoney to this area and then to cover with Optifoam Dressing as well as to reposition the patient every 2 hours. Patient remains neurologically the same. No improvement noted. Resident Chauncey has received consent for placement for PICC for patient; risks and benefits discussed by resident. vascular nurse, dash to place PICC line 11/13/18. Patient now has midline. Blood cultures remain negative from November 14. Urine culture is positive. But is a known colonizer. Pending repeat pelvic calcitonin. Note patient was a rapid response for November 15 for hypotension. Patient noted to be low hemoglobin this morning. No visible vaginal bleeding nor rectal bleeding. Occult blood was performed at bedside. Patient is ordered for CT chest abdomen pelvis with IV contrast and iliofemoral runoff. Patient receiving 1 unit PRBC at bedside and nursing has placed a peripheral axis over the right wrist. Patient again just slowly of 500 cc bolus as well as 1 unit 1 albumin as well. Hemoglobin to be followed posttransfusion. Vitals did remain stable on recheck about 90s over 50s. Patient was a subsequent rapid response overnight for hypotension again BP is hemodynamically stable at this time Patient noted to have poor prognosis though she has survived many things during her hospitalization. Her who remains in high spirits hopes that she will recover and has been persistently at bedside every single day since being hospitalized in July. not present at bedside during the time of my rounds however he noted that he is a frequent visitor every day. I did speak with at bedside today he wants every possible measures to make sure that the heart is restarted at bedside I did emphasize to him that she will likely break ribs and will cause pain as well but he would like every attempt. The who is a very educated man and very kind is very hopeful that his will improve he does understand that this is likely her her current neurologic status. And likely will not improve.
[2018-11-16 08:17] LABS: MEAN CELL VOLUME 89.2 fL (81.0-99.0); MEAN CORPUSCULAR HEMOGLOBIN 29.4 pg (27.0-31.0); MEAN PLATELET VOLUME 8.4 fL (7.2-11.7); RBC 3.41 Mil/uL (3.80-5.20); RED CELL DISTRIBUTION WIDTH 17.7 % (11.5-14.5)
[2018-11-16] MEDS: Pantoprazole 40 mg Susp UD GT SCH ×2 (08:26→21:28)
[2018-11-16 08:33] LABS: IRON 38 ug/dL (37-170); IRON 39 ug/dL (37-170)
[2018-11-16 08:42] LABS: % IRON SATURATION 25 (20-55); TOTAL IRON BINDING CAPACITY 158 ug/dL (250-450)
[2018-11-16 08:44] LABS: % IRON SATURATION 24 (20-55); TOTAL IRON BINDING CAPACITY 159 ug/dL (250-450)
[2018-11-16] MEDS: Lactobacillus Acidophilus 500 MU Cap PO SCH ×2 (10:40→17:53)
[2018-11-16] MEDS: Simethicone 80 mg Chewtab PO SCH ×4 (10:40→21:27)
[2018-11-16] MEDS: Modafinil 50 MG TAB PO SCH (10:40)
[2018-11-16] MEDS: Multiple Vitamins Tab PEG SCH (10:40)
[2018-11-16] MEDS: Vitamins A & D Oint UD Foilpak TOP SCH (10:42)
--- NOTE | 2018-11-16 11:21 | CT ---
Date of service: 11/15/2018 PROCEDURE: CT Abdomen and Pelvis with contrast HISTORY: new acute onset anemia, possible bleed COMPARISON: CT abdomen and pelvis without contrast performed 08/25/18 TECHNIQUE: Contrast dose: 100 cc Visipaque 320 IV Radiation dose: Total exam DLP = 939.51 mGy-cm. This CT exam was performed using one or more of the following dose reduction techniques: Automated exposure control, adjustment of the mA and/or kV according to patient size, and/or use of iterative reconstruction technique. FINDINGS: LOWER THORAX: Small bilateral pleural effusions and associated consolidations. Bilateral chest tubes. Partially imaged cardiomegaly. Small pericardial effusion. LIVER: Unremarkable. GALLBLADDER AND BILE DUCTS: Contracted gallbladder limits evaluation. Gallbladder wall thickening/pericholecystic edema. Whenever PANCREAS: Unremarkable. SPLEEN: Unremarkable. ADRENALS: 12 mm left adrenal gland nodule, indeterminate. The right adrenal gland appears unremarkable. KIDNEYS AND URETERS: The kidneys enhance symmetrically. No hydronephrosis or obstructing calculus identified. Bilateral renal cysts. VASCULATURE: IVC filter. No aortic aneurysm. Atherosclerotic calcifications/mural plaque present. BOWEL: Peg tube. Stomach is nondistended. Lack of oral contrast limits evaluation for bowel pathology. Bowel loops appear within normal limits of caliber without evidence of obstruction. APPENDIX: The appendix appears within normal limits of caliber. PERITONEUM: Small abdominal and pelvic free fluid. No definite free air. LYMPH NODES: No bulky adenopathy identified. BLADDER: Hernandes catheter. Distended urinary bladder with air presumably due to recent instrumentation. REPRODUCTIVE: Uterus is present. BONES: Mild degenerative changes. OTHER FINDINGS: None. IMPRESSION: Small bilateral pleural effusions and associated consolidations. Bilateral chest tubes. Small pericardial effusion and partially imaged cardiomegaly. Indeterminate heterogeneous 12 mm left adrenal gland nodule. Further characterization may be considered with dedicated outpatient cross-sectional imaging. Gallbladder wall thickening/pericholecystic edema. Contracted state of gallbladder limits evaluation. Percutaneous gastrostomy tube. IVC filter. Small bilateral renal cysts. Small abdominal and pelvic ascites. Additional incidental findings as above. Preliminary impression was provided by [employer].
[2018-11-16] MEDS ORDERED: (Novolog) Insulin Aspart, Recombinant 100 u/ml 10 ml vial SC ONE (12:30)
[2018-11-16] MEDS: POLYETHYLENE GLYCOL 3350 17 GM/Dose PACKET PO SCH ×2 (12:35→17:53)
[2018-11-16 14:02] LABS: ALB/GLOB RATIO 0.9 (1.0-2.1); ALBUMIN 2.5 g/dL (3.5-5.0); CALCIUM 7.7 mg/dl (8.6-10.4)
--- NOTE | 2018-11-16 18:44 | CP.PCM.PN ---
Subjective - Date & Time of Evaluation Date of Evaluation: 11/16/18 Time of Evaluation: 09:00 - Subjective Subjective: urine + cocci concern for VRE add zyvox Objective - Vital Signs/Intake and Output Vital Signs (last 24 hours): Temp Pulse Resp BP Pulse Ox 99.4 F 75 20 98/65 L 100 11/16/18 16:00 11/16/18 16:00 11/16/18 16:00 11/16/18 16:00 11/16/18 16:00 Intake and Output: 11/16/18 11/16/18 06:59 18:59 Intake Total 3120 670 Output Total 651 170 Balance 2469 500 - Medications Medications: Current Medications Albuterol/Ipratropium (Duoneb 3 Mg/0.5 Mg (3 Ml) Ud) 3 ml INH RQ6 [facility] Last Admin: 11/16/18 13:15 Dose: 3 ml Ascorbic Acid (Vitamin C 500 Mg Tab) 1,000 mg NG DAILY [facility] Last Admin: 11/16/18 10:45 Dose: 1,000 mg Aspirin (Aspirin Chewable) 81 mg GT DAILY [facility] Last Admin: 11/14/18 11:00 Dose: 81 mg Dextrose (Dextrose 50% Inj) 0 ml IVP .STAT PRN; Protocol PRN Reason: Hypoglycemia Protocol Dextrose (Glutose 15) 0 gm PO .ONCE PRN; Protocol PRN Reason: Hypoglycemia Protocol Glucagon (Glucagen Diagnostic Kit) 0 mg IM .STAT PRN; Protocol PRN Reason: Hypoglycemia Protocol Cefepime HCl 1 gm/ Dextrose 50 mls @ 100 mls/hr IVPB Q12H [facility]; Protocol Last Admin: 11/16/18 08:25 Dose: 100 mls/hr Lactobacillus Acidophilus (Lactobacillus) 1 cap PO BID [facility] Last Admin: 11/16/18 17:53 Dose: 1 cap Methimazole (Tapazole) 10 mg PO Q8 [facility] Last Admin: 11/16/18 14:04 Dose: 10 mg Metoclopramide HCl (Reglan) 10 mg IVP Q6H [facility] Last Admin: 11/16/18 16:34 Dose: 10 mg Midodrine (Proamatine) 10 mg PO TID [facility] Last Admin: 11/16/18 14:04 Dose: 10 mg Modafinil (Provigil) 50 mg PO DAILY [facility] Last Admin: 11/16/18 10:40 Dose: 50 mg Multivitamins (Hexavitamin) 1 tab PEG DAILY [facility] Last Admin: 11/16/18 10:40 Dose: 1 tab Pantoprazole Sodium (Protonix Susp) 40 mg GT Q12H [facility] Last Admin: 11/16/18 08:26 Dose: 40 mg Polyethylene Glycol (Miralax) 17 gm PO BID [facility] Last Admin: 11/16/18 17:53 Dose: 17 gm Simethicone (Mylicon Chew Tab) 80 mg PO QID [facility] Last Admin: 11/16/18 17:52 Dose: 80 mg Sodium Bicarbonate (Sodium Bicarbonate Tab) 650 mg PO BID [facility] Last Admin: 11/16/18 17:52 Dose: 650 mg Tamsulosin HCl (Flomax) 0.4 mg PEG DAILY [facility] Last Admin: 11/16/18 10:40 Dose: 0.4 mg - Labs Labs: 11/16/18 08:08 11/16/18 08:08 PT 13.3 SECONDS (9.7-12.2) H 10/23/18 06:05 INR 1.2 10/23/18 06:05 APTT 23 SECONDS (21-34) 10/02/18 06:10 Assessment and Plan (1) NEHA (acute kidney injury) Status: Acute (2) Acute renal failure Status: Acute (3) Acute respiratory failure Status: Acute (4) Aspiration pneumonia Status: Acute (5) Septic shock Status: Acute (6) Urinary tract infection Status: Acute (7) Diabetes mellitus Status: Chronic (8) Anoxic brain damage Status: Acute
[2018-11-16 20:57] LABS: SQUAMOUS EPITHIAL 2 /hpf (0-5); URINE BACTERIA FEW (<OCC); URINE BILIRUBIN NEGATIVE (NEGATIVE); URINE BLOOD 1+ (NEGATIVE); URINE CLARITY Hazy (Clear); URINE COLOR Amber (YELLOW); URINE GLUCOSE (UA) NORMAL (Normal); URINE LEUKOCYTE ESTERASE 3+ Leu/uL (Negative); URINE PROTEIN 2+ mg/dL (NEGATIVE)
[2018-11-17] MEDS: Albuterol-Ipratrop 3 mg / 0.5 (3 ml) UD INH SCH ×4 (01:30→19:57)
--- NOTE | 2018-11-17 06:54 | CP.PCM.PN ---
<Sunil Don - Last Filed: 11/17/18 13:47> Subjective - Date & Time of Evaluation Date of Evaluation: 11/17/18 Time of Evaluation: 06:54 - Subjective Subjective: PGY-1 Medicine Progress Note for Dr. Leahy Patient was seen and examined at bedside this AM. No acute overnight events reported. 12 pt ROS unattainable due to patient's clinical status. Objective - Vital Signs/Intake and Output Vital Signs (last 24 hours): Temp Pulse Resp BP Pulse Ox 98 F 78 20 110/66 100 11/17/18 00:00 11/17/18 00:00 11/17/18 00:00 11/17/18 00:00 11/17/18 00:00 Intake and Output: 11/16/18 11/17/18 18:59 06:59 Intake Total 670 570 Output Total 200 30 Balance 470 540 - Medications Medications: Current Medications Albuterol/Ipratropium (Duoneb 3 Mg/0.5 Mg (3 Ml) Ud) 3 ml INH RQ6 [facility] Last Admin: 11/17/18 01:30 Dose: 3 ml Ascorbic Acid (Vitamin C 500 Mg Tab) 1,000 mg NG DAILY [facility] Last Admin: 11/16/18 10:45 Dose: 1,000 mg Aspirin (Aspirin Chewable) 81 mg GT DAILY [facility] Last Admin: 11/14/18 11:00 Dose: 81 mg Dextrose (Dextrose 50% Inj) 0 ml IVP .STAT PRN; Protocol PRN Reason: Hypoglycemia Protocol Dextrose (Glutose 15) 0 gm PO .ONCE PRN; Protocol PRN Reason: Hypoglycemia Protocol Glucagon (Glucagen Diagnostic Kit) 0 mg IM .STAT PRN; Protocol PRN Reason: Hypoglycemia Protocol Cefepime HCl 1 gm/ Dextrose 50 mls @ 100 mls/hr IVPB Q12H [facility]; Protocol Last Admin: 11/16/18 21:26 Dose: 100 mls/hr Lactobacillus Acidophilus (Lactobacillus) 1 cap PO BID [facility] Last Admin: 11/16/18 17:53 Dose: 1 cap Methimazole (Tapazole) 10 mg PO Q8 [facility] Last Admin: 11/17/18 05:02 Dose: 10 mg Metoclopramide HCl (Reglan) 10 mg IVP Q6H [facility] Last Admin: 11/17/18 04:29 Dose: 10 mg Midodrine (Proamatine) 10 mg PO TID [facility] Last Admin: 11/16/18 21:27 Dose: 10 mg Modafinil (Provigil) 50 mg PO DAILY [facility] Last Admin: 11/16/18 10:40 Dose: 50 mg Multivitamins (Hexavitamin) 1 tab PEG DAILY [facility] Last Admin: 11/16/18 10:40 Dose: 1 tab Pantoprazole Sodium (Protonix Susp) 40 mg GT Q12H [facility] Last Admin: 11/16/18 21:28 Dose: 40 mg Polyethylene Glycol (Miralax) 17 gm PO BID [facility] Last Admin: 11/16/18 17:53 Dose: 17 gm Simethicone (Mylicon Chew Tab) 80 mg PO QID [facility] Last Admin: 11/16/18 21:27 Dose: 80 mg Sodium Bicarbonate (Sodium Bicarbonate Tab) 650 mg PO BID [facility] Last Admin: 11/16/18 17:52 Dose: 650 mg Tamsulosin HCl (Flomax) 0.4 mg PEG DAILY [facility] Last Admin: 11/16/18 10:40 Dose: 0.4 mg - Labs Labs: 11/16/18 08:08 11/16/18 08:08 PT 13.3 SECONDS (9.7-12.2) H 10/23/18 06:05 INR 1.2 10/23/18 06:05 APTT 23 SECONDS (21-34) 10/02/18 06:10 - Constitutional Appears: Chronically Ill - Head Exam Head Exam: ATRAUMATIC, NORMAL INSPECTION, NORMOCEPHALIC - Eye Exam Eye Exam: Nystagmus, Scleral icterus - ENT Exam ENT Exam: Mucous Membranes Dry - Neck Exam Additional comments: trach with vent in place - Respiratory Exam Respiratory Exam: NORMAL BREATHING PATTERN Additional comments: secretions appear increased - Cardiovascular Exam Cardiovascular Exam: REGULAR RHYTHM, +S1, +S2 - GI/Abdominal Exam GI & Abdominal Exam: Soft, Normal Bowel Sounds. absent: Distended, Firm, Guarding, Tenderness, Rebound Additional comments: noted PEG tube in place w dressing c/d/i - Exam Additional comments: mcintyre in place - Extremities Exam Extremities Exam: Normal Inspection. absent: Calf Tenderness, Pedal Edema Additional comments: L arm worsening edema - Neurological Exam Neurological Exam: absent: Alert, Oriented x3 - Skin Skin Exam: Dry, Intact, Normal Color Additional comments: [address] outputting fluid skin tear on buttock, dressed with medihoney and optifoam dressing Assessment and Plan - Assessment and Plan (Free Text) Assessment: This is a 52 yo female originally admitted to the ICU for septic shock 2/2 to PNA/UTI worsened by cardiac arrest and anoxic brain injury. Patient found to have apical thrombus in heart. Patient is s/p trach and PEG. Patient still unable to be weaned off vent. She has had multiple complications, including DVT and infections (PNA, UTI). s/p IVC filter 08/23. s/p multiple chest tube placements Sep 19-Oct 21. s/p LP 09/15. Patient has shown minimal improvement of cognitive function during the course of this hospitalization. Patient does not have any insurance and therefore cannot be placed in rehab/NH. Multiple conversations with regarding poor prognosis- he wishes to keep her full code. Palliative and pastoral care have been on board. Plan: Altered mental status/Encephalopathy- suspect anoxic encephalopathy -Code Blue 07/10 and 07/20 -Moved to [facility] surg floor 11/08 -Chest tubes x2 in place -Off sedation -Modafinil 50 mg PO daily -CT head (08/28/18): No hemorrhage or midline shift -MRI brain (09/08/18): No definite mass effect or suspicious extra axial collection. No evidence of acute or subacute brain infarction at this time. Borderline pattern of hydrocephalus. -LP 09/15/18: normal opening pressure - LDH 30, glucose 69, tot prot 67 - CSF Cx: no growth - Other CSF studies pending- called lab 11/01, they will contact [facility] for update -Neurology consulted (George/Ankit) Acute respiratory failure- s/p trach on vent, unable to wean - Tracheostomy 07/24/18, s/p bronchoscopy 08/23 - Patient had tolerated trach collars in early Aug 2018; however she has been on vent to trach since. Fi02: 40% - Bronchoscopy (08/23/18) by Dr. Lozada - Bronchial washings: Pseudomonas Aeruginosa - Fungal Cx: negative - Mycobacterial Cx: negative - Chest physiotherapy - Most recent CT chest (10/27/18): Large bilateral pleural effusions and associated consolidations. Trace pericardial effusion. Borderline cardiomegaly. Enlarged heterogeneous partially imaged thyroid gland. - Monitor CO2 - ABG on FiO2 40 (11/02/18): pH 7.34, pCO2 29, pO2 106 - Start Sodium bicarb 650 mg PEG BID - Pulmonary consulted (Neville) Anemia 2/2 to Chronic Diseases +/- Dysfunctional uterine bleeding, stable -Hg 10 -Stool occult blood negative -Iron normal, TIBC low, Iron saturation normal, Ferritin normal -B12, folate normal -Vaginal US: thickened endometrium -Transfused pRBC: 1 unit 07/22/18, 2 units 08/13/18, 1 unit 08/17/18, 1 unit 08/23/18, 2 unit 11/15/18 -OBGYN consulted (Gilberto)- no hysterectomy -During transfusion pt went hypotensive 77/41, PRBC adm rate increased from 120 to 150, 1L NS bolus w/ albumin IVPB on other arm -BP improved to 91/51after [employer] UTI - gram pos cocci in UC, possible contamination - repeat UC - cefepime IVPB Upper Extremity swelling bilateral - f/u upper ext dopplers : neg - holding anticoags due to vaginal bleeding - Mid Line in place, PICC pending BCs Distended abdomen -Resolving, pt had BM -AXR (10/28/18): Nonspecific bowel gas pattern with relative paucity of bowel gas. -Repeat AXR (11/02/18): Normal bowel gas pattern. -PEG tube feeds goal rate 40:Pulmocare -Reglan 10 mg IV Q6H -Miralax PEG BID -Simethicone 80 mg PEG QID Pleural effusions- s/p bilateral chest tubes - Multiple chest tubes and thoracenteses for effusions, most recent s/p bilateral chest tubes 10/27 - Pleural fluid from 10/13/18 - WBC 794, RBC 2083, tot cells 100, neutrophils 87% - Tot prot<3, LDH 145, glucose 146 - CT chest (10/27/18): Placment of 8.5 Sloven[place] pigtail drainage catheter within right and left pleural space - Most recent CXR (10/31/18): Status post bilateral chest tube placements. Marked reduction of bilateral pleural effusions, commensurate re-expansion of both lungs. - Repeat CXR 11/02: Worsening pulmonary edema - IR consulted (Partha) - Pulmonology consulted (Neville) Thyroid disorder - Thyroid US (07/16/18): Heterogeneous thyroid echotexture. Numerous nodules as described above. Suggest percutaneous biopsy of the following suspicious nodules; 1.8 x 0.9 x 1.7 cm right lower pole nodule, 1.0 x 0.7 x 0.9 cm right upper pole lesion with intracystic vascular nodule, complex left upper pole nodule measuring 2.1 x 1.5 x 1.8 cm. - Note: Initial thyroid studies taken before amiodarone was given- this is NOT amiodarone induced - TSH <0.02 in 07/2018, 10/31/18 TSH 18.10 - Free T4 >3 in 07/2018, 10/31/2018 free T4 0.24 - wnl TSH, free T4 on 11/08/18 - Methimazole to 10 mg PO Q8H - Off Propranolol 5 mg PO TID due to hypotension - Endocrinology consulted (Irwin) Hypotension -improved, stable -emains stable in 100s-120s/50s-60s - Monitor albumin, administer PRN doses -Midodrine 10 mg PEG TID Atrial fibrillation w/ RVR, resolved -EKG (10/29/18): Afib HR 130 -Cardiology consulted (Nolan) Deconditioning -Patient needs aggressive continued PT/OT- PT signed off as patient does not follow directions -Nursing and move patient OOB to chair -Social work note (08/09/18): patient is undocumented, has not health insurance, discharge planning will be at home with Septic Shock 2/2 Pneumonia and Urinary Tract Infection (VRE and Pseudomonas)- urinary retention -Off pressors (previously on 3) -Mild leukocytosis (12.4) -Afebrile since 10/21/18 -Procal 1.49 on 11/01/18, 0.66 on 10/21/18 -CXR (11/02/18): worsening pulmonary edema -Most recent blood cultures negative -Most recent urine cultures (10/21/18) +VRE/Pseudomonas, suspect patient likely colonized -Mcintyre in place -Midline removed 11/01/18 -PICC team unable to insert PICC line 11/13/18 -Flomax 0.4 mg PEG daily -Cefepime 1 g Q12H- started 10/27 -ID consulted (Vinod) -neg bc -0.93 procal Apical thrombus -Echo (07/07/18) before cardiac arrest: EF 40-45% -Echo (07/10/19) after cardiac arrest: EF 40%, LV large apical hypokinesis, large 30x20 mm soft tissue apical sessile mass suggestive of thrombus -Echo (08/17/19): LV clot, no significant change -Too high risk for HUBERT -Previously on heparin gtt, Eliquis- stopped due to anemia and vaginal bleeding -ASA 81 mg PEG daily LLE Deep vein thrombosis s/p IVC filter -Venous Doppler (07/18/18): Acute thrombosis of the left common femoral and femoral veins with severe reduction of the venous return -Resolved on repeat imaging -Previously on heparin gtt, Eliquis- stopped due to anemia and vaginal bleeding -s/p IVC filter on 08/23/18 -Vasc surgery consulted (Vicky) T2DM -A1c: 7.8 -Hypoglycemia protocol -Accuchecks Q6H Vtach- Code blue x2 (07/10/18) - Previously on amiodarone ggt - Cardiology consulted (Nolan) NEHA, resolved - Required dialysis early in admission before code blues - Monitor BUN, Cr Shock liver, resolved -Hepatitis panel negative -HIV negative -Monitor LFTs PPx, Diet, Disposition -DVT ppx: scds -GI ppx: protonix 40 via PEG q12 -Tube feeds -Pulmocare goal rate 40 mL/hr- feeds restarted 2/2 -Lactobacillus 1 cap PEG Q12H -Multivitamin PEG daily -Vitamin C 1,000 PEG daily -Vitamin A&E Case discussed with Dr. Armond Don DO, PGY-1 <Saira Leahy V - Last Filed: 11/17/18 16:17> Objective - Vital Signs/Intake and Output Vital Signs (last 24 hours): Temp Pulse Resp BP Pulse Ox 98.5 F 72 20 122/67 100 11/17/18 07:43 11/17/18 04:00 11/17/18 07:43 11/17/18 09:00 11/17/18 04:00 Intake and Output: 11/17/18 11/17/18 06:59 18:59 Intake Total 570 990 Output Total 30 1270 Balance 540 -280 - Medications Medications: Current Medications Albuterol/Ipratropium (Duoneb 3 Mg/0.5 Mg (3 Ml) Ud) 3 ml INH RQ6 [facility] Last Admin: 11/17/18 13:35 Dose: 3 ml Ascorbic Acid (Vitamin C 500 Mg Tab) 1,000 mg NG DAILY [facility] Last Admin: 11/17/18 10:36 Dose: 1,000 mg Aspirin (Aspirin Chewable) 81 mg GT DAILY [facility] Last Admin: 11/14/18 11:00 Dose: 81 mg Dextrose (Dextrose 50% Inj) 0 ml IVP .STAT PRN; Protocol PRN Reason: Hypoglycemia Protocol Dextrose (Glutose 15) 0 gm PO .ONCE PRN; Protocol PRN Reason: Hypoglycemia Protocol Glucagon (Glucagen Diagnostic Kit) 0 mg IM .STAT PRN; Protocol PRN Reason: Hypoglycemia Protocol Cefepime HCl 1 gm/ Dextrose 50 mls @ 100 mls/hr IVPB Q12H [facility]; Protocol Last Admin: 11/17/18 09:30 Dose: 100 mls/hr Lactobacillus Acidophilus (Lactobacillus) 1 cap PO BID [facility] Last Admin: 11/17/18 10:37 Dose: 1 cap Methimazole (Tapazole) 10 mg PO Q8 [facility] Last Admin: 11/17/18 14:34 Dose: 10 mg Metoclopramide HCl (Reglan) 10 mg IVP Q6H [facility] Last Admin: 11/17/18 09:25 Dose: 10 mg Midodrine (Proamatine) 10 mg PO TID [facility] Last Admin: 11/17/18 13:24 Dose: 10 mg Modafinil (Provigil) 50 mg PO DAILY [facility] Last Admin: 11/17/18 10:37 Dose: 50 mg Multivitamins (Hexavitamin) 1 tab PEG DAILY [facility] Last Admin: 11/17/18 10:36 Dose: 1 tab Pantoprazole Sodium (Protonix Susp) 40 mg GT Q12H [facility] Last Admin: 11/17/18 10:37 Dose: 40 mg Polyethylene Glycol (Miralax) 17 gm PO BID [facility] Last Admin: 11/17/18 12:04 Dose: 17 gm Simethicone (Mylicon Chew Tab) 80 mg PO QID [facility] Last Admin: 11/17/18 13:56 Dose: 80 mg Sodium Bicarbonate (Sodium Bicarbonate Tab) 650 mg PO BID [facility] Last Admin: 11/17/18 10:37 Dose: 650 mg Tamsulosin HCl (Flomax) 0.4 mg PEG DAILY [facility] Last Admin: 11/17/18 10:37 Dose: 0.4 mg - Labs Labs: 11/16/18 08:08 11/16/18 08:08 PT 13.3 SECONDS (9.7-12.2) H 10/23/18 06:05 INR 1.2 10/23/18 06:05 APTT 23 SECONDS (21-34) 10/02/18 06:10 Assessment and Plan (1) Septic shock Status: Acute (2) Acute respiratory failure Status: Acute (3) Urinary tract infection Status: Acute (4) Acute renal failure Status: Acute (5) Aspiration pneumonia Status: Acute (6) Diabetes mellitus Status: Chronic (7) Ventricular arrhythmia Status: Acute (8) Hyperthyroidism Status: Acute (9) Anemia Status: Acute (10) Prophylactic measure Status: Acute Attending/Attestation - Attestation I have personally seen and examined this patient.: Yes I have fully participated in the care of the patient.: Yes I have reviewed all pertinent clinical information, including history, physical exam and plan: Yes Notes (Text): Patient seen, examined, and case discussed with day-time resident. patient transferred to the 3rd floor general medical floor in contact isolation room after an extended stay in the stepdown unit in the intensive care unit. This is a 53-year-old female with a prolonged hospitalization for treatment for septic shock complicated by both pneumonia and urinary tract infections, anoxic encephalopathy likely secondary to 2 cardiac arrest during hospitalization, hyperthyroidism which had been controlled on methimazole, which is on hold until nov 05, shock liver which is now recovered, history of apical thrombus which is currently being treated with aspirin and is not on anticoagulation secondary to worsening heavy vaginal bleeding which required multiple blood transfusions during hospitalization, history of left lower extremity DVT which falling 1 month of anticoagulation has radiographically disappeared on repeat ultrasound and has now an IVC filter, as well as diabetes, vitamin D deficiency. Patient is noted to be incontinent of the urine. She has mcintyre which was exchanged on 11/05/18. Procalcitonin is high: 1.49 in light of Pseudomonas pneumonia on 11/01/18 and UTI likely colonizer; repeat procalcitonin 0.24 on 11.09.18. Patient has been on Maxipime 1gm IV Q12H since 10/27/18. Patient remains without fever. White count normalized in today's blood work. Also note patient did underwent a lumbar puncture on September 15 HSV-2 IgM antibody, VDRL, and the West Nile are still pending. Patient noted to have mild fever of 100.9 on the . Blood cultures remain negative. Urine culture noting gram-positive but she is a known colonizer. Pro-calcitonin repeated 11/16/18: elevated at 0.93 Physical therapy had signed off on September 24 because patient is not a candidate because she cannot follow directions. We have reconsulted physical therapy. Patient noted to be forming contractures and marked quite mostly over the right upper thigh winces in tremendous pain when you move it. As well as dependent edema noted both on the upper and lower extremities. I spoke with Raji physical therapist in regards to potential contractures and also noted involvement in her care. Patient does have significant dependent edema in both upper extremities noted swelling over the left hand. Patient also is in extreme pain in both lower extremity. When I do attempt to move both legs he does react to pain. We have attempted to try to move her legs to prevent further contractures. CPK is normal. Advised for warm compresses. Patient would be an ideal candidate for LTAC however she does not have insurance, her is not from this country which limits her ability for ser vices. The other thing is patient still remains trach to vent as well. Evening, 10/30/18 patient had an episode of atrial fib RVR which required Lopressor given by nighttime resident. We have repeated thyroid studies with elevated TSH, Free T4 normal; Endocrinology has permited restart of Methiazmole 10mg PO Q8H as of 11/08/18. Patient given dose of Albumin 11/01/18 to help improve blood pressure. Patient ordered for phosphate enema 10/31/18. patient restarted on tube feedings 10/30/18. patient had passed gas overnight but did not have a blood movement. patient placed on miralax and reglan to help promote bowel movement. Patient had a small bowel movement on 10/31/18 and is passing gas. Patient had abdominal xray to repeat which showed no obstruction. ABG is essentially normal. Patient's tube feedings restarted on 11/04/18. We will need to monitor to residual and titrate accordingly. Patient noted to do to have liquid stool with PEG feeding at max dose. There is no visible blood and we had to perform a rectal given drop in hemoglobin today at 6.7. Posttransfusion CBC noted improvement to hemoglobin of 10. No acute findings to explain acute drop in hemoglobin noted in CT scans. Chest Tubes to remain in place for now considering the patient's history of reaccumulation of pleural fluid despite multiple thoracentesis. chest tube noted only 50cc output. Continue Cefepime antibiotic for now until chest tubes remain in place. Patient has a skin tear on the Right Upper Medial Buttock without any evidence of surrounding cellulitis (exam performed with the assistance of PK Mcwilliams) with 11/12/18. Nursing order was placed on 11/11/18 for Medihoney to this area and then to cover with Optifoam Dressing as well as to reposition the patient every 2 hours. Patient remains neurologically the same. No improvement noted. Resident Chauncey has received consent for placement for PICC for patient; risks and benefits discussed by resident. vascular nurse, dash to place PICC line 11/13/18. Patient now has midline. Blood cultures remain negative from November 14. Urine culture is positive. But is a known colonizer. Procalciton 0.903. Discussed with ID, in light of fever, recommends Zyvox but due to interaction Reglan. I have d/c reglan since patient is have bowel movement. Will need to be placed on contact precations. Note patient was a rapid response for November 15 for hypotension. Patient noted to be low hemoglobin this morning. No visible vaginal bleeding nor rectal bleeding. Occult blood was performed at bedside. Patient is ordered for CT chest abdomen pelvis with IV contrast and iliofemoral runoff. Patient receiving 1 unit PRBC at bedside and nursing has placed a peripheral axis over the right wrist. Patient again just slowly of 500 cc bolus as well as 1 unit 1 albumin as well. Hemoglobin to be followed posttransfusion. Vitals did remain stable on recheck about 90s over 50s. Patient was a subsequent rapid response 11/15 for hypotension again BP is hemodynamically stable at this time Patient noted to have poor prognosis though she has survived many things during her hospitalization. Her who remains in high spirits hopes that she will recover and has been persistently at bedside every single day since being hospitalized in July. I did speak with at bedside yesterday he wants every possible measures to make sure that the heart is restarted at bedside I did emphasize to him that she will likely break ribs and will cause pain as well but he would like every attempt. The who is a very educated man and ve ry kind is very hopeful that his will improve he does understand that this is likely her her current neurologic status and likely will not improve.
[2018-11-17] MEDS: Simethicone 80 mg Chewtab PO SCH ×4 (10:36→22:05)
[2018-11-17] MEDS: Multiple Vitamins Tab PEG SCH (10:36)
[2018-11-17] MEDS: Lactobacillus Acidophilus 500 MU Cap PO SCH ×2 (10:37→18:46)
[2018-11-17] MEDS: Modafinil 50 MG TAB PO SCH (10:37)
[2018-11-17] MEDS: Pantoprazole 40 mg Susp UD GT SCH ×2 (10:37→21:50)
[2018-11-17] MEDS: POLYETHYLENE GLYCOL 3350 17 GM/Dose PACKET PO SCH ×2 (12:04→18:46)
--- NOTE | 2018-11-17 17:28 | CP.PCM.PN ---
Subjective - Date & Time of Evaluation Date of Evaluation: 11/17/18 Time of Evaluation: 09:00 - Subjective Subjective: BP low required fluid challenge zyvox added Objective - Vital Signs/Intake and Output Vital Signs (last 24 hours): Temp Pulse Resp BP Pulse Ox 98.1 F 74 20 109/72 100 11/17/18 16:00 11/17/18 16:00 11/17/18 07:43 11/17/18 16:00 11/17/18 16:00 Intake and Output: 11/17/18 11/17/18 06:59 18:59 Intake Total 570 990 Output Total 30 1270 Balance 540 -280 - Medications Medications: Current Medications Albuterol/Ipratropium (Duoneb 3 Mg/0.5 Mg (3 Ml) Ud) 3 ml INH RQ6 [facility] Last Admin: 11/17/18 13:35 Dose: 3 ml Ascorbic Acid (Vitamin C 500 Mg Tab) 1,000 mg NG DAILY [facility] Last Admin: 11/17/18 10:36 Dose: 1,000 mg Aspirin (Aspirin Chewable) 81 mg GT DAILY [facility] Last Admin: 11/14/18 11:00 Dose: 81 mg Dextrose (Dextrose 50% Inj) 0 ml IVP .STAT PRN; Protocol PRN Reason: Hypoglycemia Protocol Dextrose (Glutose 15) 0 gm PO .ONCE PRN; Protocol PRN Reason: Hypoglycemia Protocol Glucagon (Glucagen Diagnostic Kit) 0 mg IM .STAT PRN; Protocol PRN Reason: Hypoglycemia Protocol Cefepime HCl 1 gm/ Dextrose 50 mls @ 100 mls/hr IVPB Q12H [facility]; Protocol Last Admin: 11/17/18 09:30 Dose: 100 mls/hr Lactobacillus Acidophilus (Lactobacillus) 1 cap PO BID [facility] Last Admin: 11/17/18 10:37 Dose: 1 cap Methimazole (Tapazole) 10 mg PO Q8 [facility] Last Admin: 11/17/18 14:34 Dose: 10 mg Midodrine (Proamatine) 10 mg PO TID [facility] Last Admin: 11/17/18 13:24 Dose: 10 mg Modafinil (Provigil) 50 mg PO DAILY [facility] Last Admin: 11/17/18 10:37 Dose: 50 mg Multivitamins (Hexavitamin) 1 tab PEG DAILY [facility] Last Admin: 11/17/18 10:36 Dose: 1 tab Pantoprazole Sodium (Protonix Susp) 40 mg GT Q12H [facility] Last Admin: 11/17/18 10:37 Dose: 40 mg Polyethylene Glycol (Miralax) 17 gm PO BID [facility] Last Admin: 11/17/18 12:04 Dose: 17 gm Simethicone (Mylicon Chew Tab) 80 mg PO QID [facility] Last Admin: 11/17/18 13:56 Dose: 80 mg Sodium Bicarbonate (Sodium Bicarbonate Tab) 650 mg PO BID [facility] Last Admin: 11/17/18 10:37 Dose: 650 mg Tamsulosin HCl (Flomax) 0.4 mg PEG DAILY [facility] Last Admin: 11/17/18 10:37 Dose: 0.4 mg - Labs Labs: 11/16/18 08:08 11/16/18 08:08 PT 13.3 SECONDS (9.7-12.2) H 10/23/18 06:05 INR 1.2 10/23/18 06:05 APTT 23 SECONDS (21-34) 10/02/18 06:10 - Constitutional Appears: Confused - Head Exam Head Exam: NORMOCEPHALIC - Eye Exam Eye Exam: absent: Scleral icterus - ENT Exam ENT Exam: Mucous Membranes Dry - Neck Exam Neck Exam: absent: Lymphadenopathy - Respiratory Exam Respiratory Exam: Decreased Breath Sounds - Cardiovascular Exam Cardiovascular Exam: REGULAR RHYTHM - GI/Abdominal Exam GI & Abdominal Exam: Distended - Rectal Exam Rectal Exam: Deferred - Exam Exam: NORMAL INSPECTION - Extremities Exam Extremities Exam: absent: Pedal Edema - Back Exam Back Exam: absent: CVA tenderness (L), CVA tenderness (R) - Neurological Exam Neurological Exam: Altered Assessment and Plan (1) NEHA (acute kidney injury) Status: Acute (2) Acute renal failure Status: Acute (3) Acute respiratory failure Status: Acute (4) Aspiration pneumonia Status: Acute (5) Septic shock Status: Acute (6) Urinary tract infection Status: Acute (7) Diabetes mellitus Status: Chronic (8) Anoxic brain damage Status: Acute
[2018-11-17] MEDS: Linezolid 600 mg in D5W 300 ml 600 MG/300 ML BAG IVPB SCH (18:50)
[2018-11-18] MEDS: Albuterol-Ipratrop 3 mg / 0.5 (3 ml) UD INH SCH ×2 (01:20→08:01)
[2018-11-18] MEDS: Linezolid 600 mg in D5W 300 ml 600 MG/300 ML BAG IVPB SCH ×2 (05:29→17:43)
[2018-11-18] MEDS: Pantoprazole 40 mg Susp UD GT SCH ×2 (09:57→21:36)
[2018-11-18] MEDS: Multiple Vitamins Tab PEG SCH (10:57)
[2018-11-18] MEDS: Lactobacillus Acidophilus 500 MU Cap PO SCH ×2 (10:57→17:43)
[2018-11-18] MEDS: POLYETHYLENE GLYCOL 3350 17 GM/Dose PACKET PO SCH ×3 (10:57→17:43)
[2018-11-18] MEDS: Simethicone 80 mg Chewtab PO SCH ×4 (11:00→21:36)
[2018-11-18] MEDS: Modafinil 50 MG TAB PO SCH (11:00)
[2018-11-18 12:24] LABS: BASO # 0.1 K/uL (0.0-0.2); BASO % 0.6 % (0.0-2.0); EOS # 0.4 K/uL (0.0-0.7); HEMOGLOBIN 10.8 g/dL (11.0-16.0); LYMPH # 0.7 K/uL (1.0-4.3); LYMPH % 7.7 % (20.0-40.0); MEAN CELL VOLUME 90.2 fL (81.0-99.0); MEAN CORPUSCULAR HEMOGLOBIN 29.1 pg (27.0-31.0); MEAN CORPUSCULAR HGB CONC 32.3 g/dL (33.0-37.0); MEAN PLATELET VOLUME 8.3 fL (7.2-11.7); MONO # 0.6 K/uL (0.0-0.8); MONO % 7.5 % (0.0-10.0); NEUT # 6.8 K/uL (1.8-7.0); NEUT % 79.2 % (50.0-75.0); PLATELET COUNT 254 K/uL (130-400); RBC 3.73 Mil/uL (3.80-5.20); RED CELL DISTRIBUTION WIDTH 17.7 % (11.5-14.5); WHITE BLOOD COUNT 8.6 K/uL (4.8-10.8)
[2018-11-18 12:44] LABS: EOSINOPHIL 1 % (0-4); LYMPHOCYTE 8 % (20-40); MONOCYTE 8 % (0-10); NEUTROPHIL 83 % (50-75); TOTAL CELLS COUNTED 100
[2018-11-18 12:45] LABS: ANISOCYTOSIS SLIGHT; LARGE PLATELETS PRESENT; PLATELET ESTIMATE NORMAL (NORMAL); TOXIC GRANULATION PRESENT
[2018-11-18 12:46] LABS: HYPOCHROMIC SLIGHT; POLYCHROMIC SLIGHT
[2018-11-18 13:03] LABS: ALB/GLOB RATIO 0.8 (1.0-2.1); ALBUMIN 2.4 g/dL (3.5-5.0); CALCIUM 7.6 mg/dl (8.6-10.4)
--- NOTE | 2018-11-18 14:25 | CP.PCM.PN ---
Subjective - Date & Time of Evaluation Date of Evaluation: 11/18/18 Time of Evaluation: 09:00 - Subjective Subjective: PGY1 Medicine progress note for Dr. Leahy Pt was seen and examined at bedside. Nursing reports increased secretions. ROS unobtainable due to pt's clinical status. Objective - Vital Signs/Intake and Output Vital Signs (last 24 hours): Temp Pulse Resp BP Pulse Ox 98.7 F 137 H 20 115/58 L 94 L 11/18/18 08:44 11/18/18 08:44 11/18/18 08:44 11/18/18 08:44 11/18/18 08:44 Intake and Output: 11/18/18 11/18/18 06:59 18:59 Intake Total 640 870 Output Total 470 580 Balance 170 290 - Medications Medications: Current Medications Ascorbic Acid (Vitamin C 500 Mg Tab) 1,000 mg NG DAILY [facility] Last Admin: 11/18/18 10:57 Dose: 1,000 mg Aspirin (Aspirin Chewable) 81 mg GT DAILY [facility] Last Admin: 11/14/18 11:00 Dose: 81 mg Dextrose (Dextrose 50% Inj) 0 ml IVP .STAT PRN; Protocol PRN Reason: Hypoglycemia Protocol Dextrose (Glutose 15) 0 gm PO .ONCE PRN; Protocol PRN Reason: Hypoglycemia Protocol Glucagon (Glucagen Diagnostic Kit) 0 mg IM .STAT PRN; Protocol PRN Reason: Hypoglycemia Protocol Cefepime HCl 1 gm/ Dextrose 50 mls @ 100 mls/hr IVPB Q12H [facility]; Protocol Last Admin: 11/18/18 10:00 Dose: 100 mls/hr Linezolid (Zyvox 600mg/300ml D5w) 600 mg in 300 mls @ 200 mls/hr IVPB Q12H [facility]; Protocol Last Admin: 11/18/18 05:29 Dose: 200 mls/hr Lactobacillus Acidophilus (Lactobacillus) 1 cap PO BID [facility] Last Admin: 11/18/18 10:57 Dose: 1 cap Methimazole (Tapazole) 10 mg PO Q8 [facility] Last Admin: 11/18/18 13:16 Dose: 10 mg Midodrine (Proamatine) 10 mg PO TID [facility] Last Admin: 11/18/18 13:16 Dose: 10 mg Modafinil (Provigil) 50 mg PO DAILY [facility] Last Admin: 11/18/18 11:00 Dose: 50 mg Multivitamins (Hexavitamin) 1 tab PEG DAILY [facility] Last Admin: 11/18/18 10:57 Dose: 1 tab Pantoprazole Sodium (Protonix Susp) 40 mg GT Q12H [facility] Last Admin: 11/18/18 09:57 Dose: 40 mg Polyethylene Glycol (Miralax) 17 gm PO BID [facility] Last Admin: 11/18/18 11:24 Dose: Not Given Simethicone (Mylicon Chew Tab) 80 mg PO QID [facility] Last Admin: 11/18/18 13:16 Dose: 80 mg Sodium Bicarbonate (Sodium Bicarbonate Tab) 650 mg PO BID [facility] Last Admin: 11/18/18 10:56 Dose: 650 mg Tamsulosin HCl (Flomax) 0.4 mg PEG DAILY [facility] Last Admin: 11/18/18 10:56 Dose: 0.4 mg - Labs Labs: 11/18/18 12:05 11/18/18 12:05 PT 13.3 SECONDS (9.7-12.2) H 10/23/18 06:05 INR 1.2 10/23/18 06:05 APTT 23 SECONDS (21-34) 10/02/18 06:10 - Additional Findings Additional findings: - Constitutional Appears: Chronically Ill - Head Exam Head Exam: ATRAUMATIC, NORMAL INSPECTION, NORMOCEPHALIC - Eye Exam Eye Exam: Nystagmus, Scleral icterus - ENT Exam ENT Exam: Mucous Membranes Dry - Neck Exam Additional comments: trach with vent in place; C/D/I; no active bleeding or purulent discarge - Respiratory Exam Respiratory Exam: NORMAL BREATHING PATTERN Additional comments: increased secretions, ronchi bilaterally. - Cardiovascular Exam Cardiovascular Exam: REGULAR RHYTHM, +S1, +S2 - GI/Abdominal Exam GI & Abdominal Exam: Soft, Normal Bowel Sounds. absent: Distended, Firm, Guarding, Tenderness, Rebound Additional comments: noted PEG tube in place w dressing c/d/i; no signs of infection or bleeding - Exam Additional comments: mcintyre in place - Extremities Exam Extremities Exam: Normal Inspection. absent: Calf Tenderness Additional comments: dependant edema, left worse than right - Neurological Exam Neurological Exam: absent: Alert, Oriented x3 - Skin Skin Exam: Dry, Intact, Normal Color Additional comments: [address] outputting fluid Assessment and Plan - Assessment and Plan (Free Text) Assessment: This is a 52 yo female originally admitted to the ICU for septic shock 2/2 to PNA/UTI worsened by cardiac arrest and anoxic brain injury. Patient found to have apical thrombus in heart. Patient is s/p trach and PEG. Patient still unable to be weaned off vent. She has had multiple complications, including DVT and infections (PNA, UTI). s/p IVC filter 08/23. s/p multiple chest tube placements Sep 19-Oct 21. s/p LP 09/15. Patient has shown minimal improvement of cognitive function during the course of this hospitalization. Patient does not have any insurance and therefore cannot be placed in rehab/NH. Multiple conversations with regarding poor prognosis- he wishes to keep her full code. Palliative and pastoral care have been on board. Plan: Altered mental status/Encephalopathy- suspect anoxic encephalopathy -Code Blue 07/10 and 07/20 -Moved to [facility] floor 11/08 -Chest tubes x2 in place -Off sedation -Modafinil 50 mg PO daily -CT head (08/28/18): No hemorrhage or midline shift -MRI brain (09/08/18): No definite mass effect or suspicious extra axial co llection. No evidence of acute or subacute brain infarction at this time. Borderline pattern of hydrocephalus. -LP 09/15/18: normal opening pressure - LDH 30, glucose 69, tot prot 67 - CSF Cx: no growth - Other CSF studies pending- called lab 11/01, they will contact [facility] for update -Neurology consulted (George/Ankit) Acute respiratory failure- s/p trach on vent, unable to wean - Tracheostomy 07/24/18, s/p bronchoscopy 08/23 - Patient had tolerated trach collars in early Aug 2018; however she has been on vent to trach since. Fi02: 40% - Bronchoscopy (08/23/18) by Dr. Lozada - Bronchial washings: Pseudomonas Aeruginosa - Fungal Cx: negative - Mycobacterial Cx: negative - Chest physiotherapy increased secretions, but pt is being suctioned by RN regularly - Most recent CT chest (10/27/18): Large bilateral pleural effusions and associated consolidations. Trace pericardial effusion. Borderline cardiomegaly. Enlarged heterogeneous partially imaged thyroid gland. - Monitor CO2 - ABG on FiO2 40 (11/02/18): pH 7.34, pCO2 29, pO2 106 - Start Sodium bicarb 650 mg PEG BID - Pulmonary consulted (Neville) Anemia 2/2 to Chronic Diseases +/- Dysfunctional uterine bleeding, stable -Hg 10 -Stool occult blood negative -Iron normal, TIBC low, Iron saturation normal, Ferritin normal -B12, folate normal -Vaginal US: thickened endometrium -Transfused pRBC: 1 unit 07/22/18, 2 units 08/13/18, 1 unit 08/17/18, 1 unit 08/23/18, 2 unit 11/15/18 -OBGYN consulted (Gilberto)- no hysterectomy -During transfusion pt went hypotensive 77/41, PRBC adm rate increased from 120 to 150, 1L NS bolus w/ albumin IVPB on other arm -BP improved to 91/51after [employer] 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 -Repeat AXR (11/02/18): Normal bowel gas pattern. -PEG tube feeds goal rate 40:Pulmocare -Reglan discontinued due to interaction with zyvox -Miralax PEG BID -Simethicone 80 mg PEG QID Pleural effusions- s/p bilateral chest tubes - Multiple chest tubes and thoracenteses for effusions, most recent s/p bi lateral chest tubes 10/27 - Pleural fluid from 10/13/18 - WBC 794, RBC 2083, tot cells 100, neutrophils 87% - Tot prot<3, LDH 145, glucose 146 - CT chest (10/27/18): Placment of 8.5 Turkmen pigtail drainage catheter within right and left pleural space - Most recent CXR (10/31/18): Status post bilateral chest tube placements. Marked reduction of bilateral pleural effusions, commensurate re-expansion of both lungs. - Repeat CXR 11/02: Worsening pulmonary edema - IR consulted (Partha) - Pulmonology consulted (Neville) Thyroid disorder - Thyroid US (07/16/18): Heterogeneous thyroid echotexture. Numerous nodules as described above. Suggest percutaneous biopsy of the following suspicious nodules; 1.8 x 0.9 x 1.7 cm right lower pole nodule, 1.0 x 0.7 x 0.9 cm right upper pole lesion with intracystic vascular nodule, complex left upper pole nodule measuring 2.1 x 1.5 x 1.8 cm. - Note: Initial thyroid studies taken before amiodarone was given- this is NOT amiodarone induced - TSH <0.02 in 07/2018, 10/31/18 TSH 18.10 - Free T4 >3 in 07/2018, 10/31/2018 free T4 0.24 - wnl TSH, free T4 on 11/08/18 - Methimazole to 10 mg PO Q8H - Off Propranolol 5 mg PO TID due to hypotension - Endocrinology consulted (Irwin) Hypotension -improved, stable -emains stable in 100s-120s/50s-60s - Monitor albumin, administer PRN doses -Midodrine 10 mg PEG TID Atrial fibrillation w/ RVR, resolved -EKG (10/29/18): Afib HR 130 -Cardiology consulted (Nolan) Deconditioning -Patient needs aggressive continued PT/OT- PT signed off as patient does not follow directions -Nursing and move patient OOB to chair -Social work note (08/09/18): patient is undocumented, has not health insurance, discharge planning will be at home with Septic Shock 2/2 Pneumonia and Urinary Tract Infection (VRE and Pseudomonas)- urinary retention -Off pressors (previously on 3) -Mild leukocytosis (12.4) -Afebrile since 10/21/18 -Procal 1.49 on 11/01/18, 0.66 on 10/21/18 -CXR (11/02/18): worsening pulmonary edema -Most recent blood cultures negative -Most recent urine cultures (10/21/18) +VRE/Pseudomonas, suspect patient likely colonized -Mcintyre in place -Midline removed 11/01/18 -PICC team unable to insert PICC line 11/13/18 -Flomax 0.4 mg PEG daily -Cefepime 1 g Q12H- started 10/27 -ID consulted (Vinod) -neg bc -0.93 procal Apical thrombus -Echo (07/07/18) before cardiac arrest: EF 40-45% -Echo (07/10/19) after cardiac arrest: EF 40%, LV large apical hypokinesis, large 30x20 mm soft tissue apical sessile mass suggestive of thrombus -Echo (08/17/19): LV clot, no significant change -Too high risk for HUBERT -Previously on heparin gtt, Eliquis- stopped due to anemia and vaginal bleeding -ASA 81 mg PEG daily LLE Deep vein thrombosis s/p IVC filter -Venous Doppler (07/18/18): Acute thrombosis of the left common femoral and femoral veins with severe reduction of the venous return -Resolved on repeat imaging -Previously on heparin gtt, Eliquis- stopped due to anemia and vaginal bleeding -s/p IVC filter on 08/23/18 -Vasc surgery consulted (Vicky) T2DM -A1c: 7.8 -Hypoglycemia protocol -Accuchecks Q6H Vtach- Code blue x2 (07/10/18) - Previously on amiodarone ggt - Cardiology consulted (Nolan) NEHA, resolved - Required dialysis early in admission before code blues - Monitor BUN, Cr Shock liver, resolved -Hepatitis panel negative -HIV negative -Monitor LFTs PPx, Diet, Disposition -DVT ppx: scds -GI ppx: protonix 40 via PEG q12 -Tube feeds -Pulmocare goal rate 40 mL/hr- feeds restarted 2/2 -Lactobacillus 1 cap PEG Q12H -Multivitamin PEG daily -Vitamin C 1,000 PEG daily -Vitamin A&E Case discussed with Dr. Armond vo PGY1
[2018-11-19] MEDS: Albuterol-Ipratrop 3 mg / 0.5 (3 ml) UD INH SCH ×6 (00:50→21:35)
--- NOTE | 2018-11-19 01:01 | CP.PCM.PN ---
Subjective - Date & Time of Evaluation Date of Evaluation: 11/19/18 Time of Evaluation: 00:59 - Subjective Subjective: HOSPITALIST SERVICE Pt seen and examined at bedside, as per nursing no acute events overnight - chest tubes r 80cc L 0cc, no residuals with feeding, encouraged to do bed to chair, repositioning Objective - Vital Signs/Intake and Output Vital Signs (last 24 hours): Temp Pulse Resp BP Pulse Ox 97.2 F L 92 H 20 111/59 L 98 11/18/18 17:02 11/18/18 17:02 11/18/18 08:44 11/18/18 17:02 11/18/18 17:02 Intake and Output: 11/18/18 11/19/18 18:59 06:59 Intake Total 1490 Output Total 1840 480 Balance -350 -480 - Medications Medications: Current Medications Albuterol/Ipratropium (Duoneb 3 Mg/0.5 Mg (3 Ml) Ud) 3 ml INH RQ4 [facility] Ascorbic Acid (Vitamin C 500 Mg Tab) 1,000 mg NG DAILY [facility] Last Admin: 11/18/18 10:57 Dose: 1,000 mg Aspirin (Aspirin Chewable) 81 mg GT DAILY [facility] Last Admin: 11/14/18 11:00 Dose: 81 mg Dextrose (Dextrose 50% Inj) 0 ml IVP .STAT PRN; Protocol PRN Reason: Hypoglycemia Protocol Dextrose (Glutose 15) 0 gm PO .ONCE PRN; Protocol PRN Reason: Hypoglycemia Protocol Glucagon (Glucagen Diagnostic Kit) 0 mg IM .STAT PRN; Protocol PRN Reason: Hypoglycemia Protocol Cefepime HCl 1 gm/ Dextrose 50 mls @ 100 mls/hr IVPB Q12H [facility]; Protocol Last Admin: 11/18/18 21:35 Dose: 100 mls/hr Linezolid (Zyvox 600mg/300ml D5w) 600 mg in 300 mls @ 200 mls/hr IVPB Q12H [facility]; Protocol Last Admin: 11/18/18 17:43 Dose: 200 mls/hr Lactobacillus Acidophilus (Lactobacillus) 1 cap PO BID [facility] Last Admin: 11/18/18 17:43 Dose: 1 cap Methimazole (Tapazole) 10 mg PO Q8 [facility] Last Admin: 11/18/18 21:36 Dose: 10 mg Midodrine (Proamatine) 10 mg PO TID [facility] Last Admin: 11/18/18 17:42 Dose: 10 mg Modafinil (Provigil) 50 mg PO DAILY [facility] Last Admin: 11/18/18 11:00 Dose: 50 mg Multivitamins (Hexavitamin) 1 tab PEG DAILY [facility] Last Admin: 11/18/18 10:57 Dose: 1 tab Pantoprazole Sodium (Protonix Susp) 40 mg GT Q12H [facility] Last Admin: 11/18/18 21:36 Dose: 40 mg Simethicone (Mylicon Chew Tab) 80 mg PO QID [facility] Last Admin: 11/18/18 21:36 Dose: 80 mg Sodium Bicarbonate (Sodium Bicarbonate Tab) 650 mg PO BID [facility] Last Admin: 11/18/18 17:43 Dose: 650 mg Tamsulosin HCl (Flomax) 0.4 mg PEG DAILY [facility] Last Admin: 11/18/18 10:56 Dose: 0.4 mg - Labs Labs: 11/18/18 12:05 11/18/18 12:05 PT 13.3 SECONDS (9.7-12.2) H 10/23/18 06:05 INR 1.2 10/23/18 06:05 APTT 23 SECONDS (21-34) 10/02/18 06:10 - Additional Findings Additional findings: - Constitutional Appears: Chronically Ill - Head Exam Head Exam: ATRAUMATIC, NORMAL INSPECTION, NORMOCEPHALIC - Eye Exam Eye Exam: Nystagmus, Scleral icterus - ENT Exam ENT Exam: Mucous Membranes Dry - Neck Exam Additional comments: trach with vent in place; C/D/I; no active bleeding or purulent discarge - Respiratory Exam Respiratory Exam: NORMAL BREATHING PATTERN Additional comments: increased secretions, ronchi bilaterally. - Cardiovascular Exam Cardiovascular Exam: REGULAR RHYTHM, +S1, +S2 - GI/Abdominal Exam GI & Abdominal Exam: Soft, Normal Bowel Sounds. absent: Distended, Firm, Guarding, Tenderness, Rebound Additional comments: noted PEG tube in place w dressing c/d/i; no signs of infection or bleeding, no residuals per nursing - Exam Additional comments: mcintyre in place - Extremities Exam Extremities Exam: Normal Inspection. absent: Calf Tenderness Additional comments: dependant edema, left worse than right - Neurological Exam Neurological Exam: absent: Alert, Oriented x3 - Skin Skin Exam: Dry, Intact, Normal Color Additional comments: [address] outputting fluid R 80cc L 0cc last 24hrs Assessment and Plan - Assessment and Plan (Free Text) Assessment: This is a 52 yo female originally admitted to the ICU for septic shock 2/2 to PNA/UTI worsened by cardiac arrest and anoxic brain injury. Patient found to have apical thrombus in heart. Patient is s/p trach and PEG. Patient still unable to be weaned off vent. She has had multiple complications, including DVT and infections (PNA, UTI). s/p IVC filter 08/23. s/p multiple chest tube placements Sep 19-Oct 21. s/p LP 09/15. Patient has shown minimal improvement of cognitive function during the course of this hospitalization. Patient does not have any insurance and therefore cannot be placed in rehab/NH. Multiple conversations with regarding poor prognosis- he wishes to keep her full code. Palliative and pastoral care have been on board. Plan: Altered mental status/Encephalopathy- suspect anoxic encephalopathy -Code Blue 07/10 and 07/20 -Moved to med surg floor 11/08 -Chest tubes x2 in place -Off sedation -Modafinil 50 mg PO daily -CT head (08/28/18): No hemorrhage or midline shift -MRI brain (09/08/18): No definite mass effect or suspicious extra axial collection. No evidence of acute or subacute brain infarction at this time. Borderline pattern of hydrocephalus. -LP 09/15/18: normal opening pressure - LDH 30, glucose 69, tot prot 67 - CSF Cx: no growth - Other CSF studies pending- called lab 11/01, they will contact [facility] for update -Neurology consulted (George/Ankit) Acute respiratory failure- s/p trach on vent, unable to wean - Tracheostomy 07/24/18, s/p bronchoscopy 08/23 - Patient had tolerated trach collars in early Aug 2018; however she has been on vent to trach since. Fi02: 40% - Bronchoscopy (08/23/18) by Dr. Lozada - Bronchial washings: Pseudomonas Aeruginosa - Fungal Cx: negative - Mycobacterial Cx: negative - Chest physiotherapy increased secretions, but pt is being suctioned by RN regularly - Most recent CT chest (10/27/18): Large bilateral pleural effusions and associated consolidations. Trace pericardial effusion. Borderline cardiomegaly. Enlarged heterogeneous partially imaged thyroid gland. - Monitor CO2 - ABG on FiO2 40 (11/02/18): pH 7.34, pCO2 29, pO2 106 - Start Sodium bicarb 650 mg PEG BID - Pulmonary consulted (Neville) Anemia 2/2 to Chronic Diseases +/- Dysfunctional uterine bleeding, stable -Hg 10.8 -Stool occult blood negative -Iron normal, TIBC low, Iron saturation normal, Ferritin normal -B12, folate normal -Vaginal US: thickened endometrium -Transfused pRBC: 1 unit 07/22/18, 2 units 08/13/18, 1 unit 08/17/18, 1 unit 08/23/18, 2 unit 11/15/18 -OBGYN consulted (Gilberto)- no hysterectomy -During transfusion pt went hypotensive 77/41, PRBC adm rate increased from 120 to 150, 1L NS bolus w/ albumin IVPB on other arm -BP improved to 91/51after [employer] 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 -Repeat AXR (11/02/18): Normal bowel gas pattern. -PEG tube feeds goal rate 40:Pulmocare -Reglan discontinued due to interaction with zyvox -Miralax PEG BID -Simethicone 80 mg PEG QID Pleural effusions- s/p bilateral chest tubes - Multiple chest tubes and thoracenteses for effusions, most recent s/p bilateral chest tubes 10/27 - Pleural fluid from 10/13/18 - WBC 794, RBC 2083, tot cells 100, neutrophils 87% - Tot prot<3, LDH 145, glucose 146 - CT chest (10/27/18): Placment of 8.5 [place] pigtail drainage catheter within right and left pleural space - Most recent CXR (10/31/18): Status post bilateral chest tube placements. Marked reduction of bilateral pleural effusions, commensurate re-expansion of both lungs. - Repeat CXR 11/02: Worsening pulmonary edema - IR consulted (Partha) - Pulmonology consulted (Neville) Thyroid disorder - Thyroid US (07/16/18): Heterogeneous thyroid echotexture. Numerous nodules as described above. Suggest percutaneous biopsy of the following suspicious no dules; 1.8 x 0.9 x 1.7 cm right lower pole nodule, 1.0 x 0.7 x 0.9 cm right upper pole lesion with intracystic vascular nodule, complex left upper pole nodule measuring 2.1 x 1.5 x 1.8 cm. - Note: Initial thyroid studies taken before amiodarone was given- this is NOT amiodarone induced - TSH <0.02 in 07/2018, 10/31/18 TSH 18.10 - Free T4 >3 in 07/2018, 10/31/2018 free T4 0.24 - wnl TSH, free T4 on 11/08/18 - Methimazole to 10 mg PO Q8H - Off Propranolol 5 mg PO TID due to hypotension - Endocrinology consulted (Irwin) Hypotension -improved, stable -emains stable in 100s-120s/50s-60s - Monitor albumin, administer PRN doses -Midodrine 10 mg PEG TID Atrial fibrillation w/ RVR, resolved -EKG (10/29/18): Afib HR 130 -Cardiology consulted (Nolan) Deconditioning -Patient needs aggressive continued PT/OT- PT signed off as patient does not follow directions -Nursing and move patient OOB to chair -Social work note (08/09/18): patient is undocumented, has not health insurance, discharge planning will be at home with Septic Shock 2/2 Pneumonia and Urinary Tract Infection (VRE and Pseudomonas)- urinary retention -Off pressors (previously on 3) -Mild leukocytosis (12.4) -Afebrile since 10/21/18 -Procal 1.49 on 11/01/18, 0.66 on 10/21/18 -CXR (11/02/18): worsening pulmonary edema -Most recent blood cultures negative -Most recent urine cultures (10/21/18) +VRE/Pseudomonas, suspect patient likely colonized -Mcintyre in place -Midline removed 11/01/18 -PICC team unable to insert PICC line 11/13/18 -Flomax 0.4 mg PEG daily -Cefepime 1 g Q12H- started 10/27 -ID consulted (Vinod) -neg bc -0.93 procal Apical thrombus -Echo (07/07/18) before cardiac arrest: EF 40-45% -Echo (07/10/19) after cardiac arrest: EF 40%, LV large apical hypokinesis, large 30x20 mm soft tissue apical sessile mass suggestive of thrombus -Echo (08/17/19): LV clot, no significant change -Too high risk for HUBERT -Previously on heparin gtt, Eliquis- stopped due to anemia and vaginal bleeding -ASA 81 mg PEG daily LLE Deep vein thrombosis s/p IVC filter -Venous Doppler (07/18/18): Acute thrombosis of the left common femoral and femoral veins with severe reduction of the venous return -Resolved on repeat imaging -Previously on heparin gtt, Eliquis- stopped due to anemia and vaginal bleeding -s/p IVC filter on 08/23/18 -Vasc surgery consulted (Vicky) T2DM -A1c: 7.8 -Hypoglycemia protocol -Accuchecks Q6H Vtach- Code blue x2 (07/10/18) - Previously on amiodarone ggt - Cardiology consulted (Nolan) NEHA, resolved - Required dialysis early in admission before code blues - Monitor BUN, Cr Shock liver, resolved -Hepatitis panel negative -HIV negative -Monitor LFTs PPx, Diet, Disposition -DVT ppx: scds -GI ppx: protonix 40 via PEG q12 -Tube feeds -Pulmocare goal rate 40 mL/hr- feeds restarted 2/2 -Lactobacillus 1 cap PEG Q12H -Multivitamin PEG daily -Vitamin C 1,000 PEG daily -Vitamin A&E
[2018-11-19] MEDS: Linezolid 600 mg in D5W 300 ml 600 MG/300 ML BAG IVPB SCH ×2 (06:01→17:29)
[2018-11-19] MEDS: Pantoprazole 40 mg Susp UD GT SCH ×2 (09:18→20:36)
[2018-11-19] MEDS: Lactobacillus Acidophilus 500 MU Cap PO SCH ×2 (10:55→17:03)
[2018-11-19] MEDS: Simethicone 80 mg Chewtab PO SCH ×4 (10:55→21:00)
[2018-11-19] MEDS: Multiple Vitamins Tab PEG SCH (10:55)
[2018-11-19] MEDS: Modafinil 50 MG TAB PO SCH (10:55)
--- NOTE | 2018-11-19 15:59 | CP.PCM.PN ---
Subjective - Date & Time of Evaluation Date of Evaluation: 11/19/18 Time of Evaluation: 09:00 - Subjective Subjective: events noted IV rx in progress Objective - Vital Signs/Intake and Output Vital Signs (last 24 hours): Temp Pulse Resp BP Pulse Ox 98.4 F 85 20 102/66 99 11/19/18 08:19 11/19/18 08:19 11/19/18 08:19 11/19/18 08:19 11/19/18 08:19 Intake and Output: 11/19/18 11/19/18 06:59 18:59 Intake Total 1540 Output Total 480 640 Balance -480 900 - Medications Medications: Current Medications Albuterol/Ipratropium (Duoneb 3 Mg/0.5 Mg (3 Ml) Ud) 3 ml INH RQ4 [facility] Last Admin: 11/19/18 12:06 Dose: 3 ml Ascorbic Acid (Vitamin C 500 Mg Tab) 1,000 mg NG DAILY [facility] Last Admin: 11/19/18 10:55 Dose: 1,000 mg Aspirin (Aspirin Chewable) 81 mg GT DAILY [facility] Last Admin: 11/14/18 11:00 Dose: 81 mg Dextrose (Dextrose 50% Inj) 0 ml IVP .STAT PRN; Protocol PRN Reason: Hypoglycemia Protocol Dextrose (Glutose 15) 0 gm PO .ONCE PRN; Protocol PRN Reason: Hypoglycemia Protocol Glucagon (Glucagen Diagnostic Kit) 0 mg IM .STAT PRN; Protocol PRN Reason: Hypoglycemia Protocol Cefepime HCl 1 gm/ Dextrose 50 mls @ 100 mls/hr IVPB Q12H [facility]; Protocol Last Admin: 11/19/18 09:56 Dose: 100 mls/hr Linezolid (Zyvox 600mg/300ml D5w) 600 mg in 300 mls @ 200 mls/hr IVPB Q12H [facility]; Protocol Last Admin: 11/19/18 06:01 Dose: 200 mls/hr Lactobacillus Acidophilus (Lactobacillus) 1 cap PO BID [facility] Last Admin: 11/19/18 10:55 Dose: 1 cap Methimazole (Tapazole) 10 mg PO Q8 [facility] Last Admin: 11/19/18 14:07 Dose: 10 mg Midodrine (Proamatine) 10 mg PO TID [facility] Last Admin: 11/19/18 14:07 Dose: 10 mg Modafinil (Provigil) 50 mg PO DAILY [facility] Last Admin: 11/19/18 10:55 Dose: 50 mg Multivitamins (Hexavitamin) 1 tab PEG DAILY [facility] Last Admin: 11/19/18 10:55 Dose: 1 tab Pantoprazole Sodium (Protonix Susp) 40 mg GT Q12H [facility] Last Admin: 11/19/18 09:18 Dose: 40 mg Simethicone (Mylicon Chew Tab) 80 mg PO QID [facility] Last Admin: 11/19/18 14:07 Dose: 80 mg Sodium Bicarbonate (Sodium Bicarbonate Tab) 650 mg PO BID [facility] Last Admin: 11/19/18 10:55 Dose: 650 mg Tamsulosin HCl (Flomax) 0.4 mg PEG DAILY [facility] Last Admin: 11/19/18 10:55 Dose: 0.4 mg - Labs Labs: 11/18/18 12:05 11/18/18 12:05 PT 13.3 SECONDS (9.7-12.2) H 10/23/18 06:05 INR 1.2 10/23/18 06:05 APTT 23 SECONDS (21-34) 10/02/18 06:10 - Constitutional Appears: Confused, Cachectic, Chronically Ill - Head Exam Head Exam: NORMOCEPHALIC - Eye Exam Eye Exam: absent: Scleral icterus - ENT Exam ENT Exam: Mucous Membranes Dry - Neck Exam Neck Exam: absent: Lymphadenopathy - Respiratory Exam Respiratory Exam: Decreased Breath Sounds - Cardiovascular Exam Cardiovascular Exam: REGULAR RHYTHM - GI/Abdominal Exam GI & Abdominal Exam: Distended, Soft - Rectal Exam Rectal Exam: Deferred - Exam Exam: NORMAL INSPECTION - Extremities Exam Extremities Exam: absent: Pedal Edema - Back Exam Back Exam: absent: CVA tenderness (L), CVA tenderness (R) - Neurological Exam Neurological Exam: Alert, Altered Assessment and Plan (1) NEHA (acute kidney injury) Status: Acute (2) Acute renal failure Status: Acute (3) Acute respiratory failure Status: Acute (4) Aspiration pneumonia Status: Acute (5) Septic shock Status: Acute (6) Urinary tract infection Status: Acute (7) Diabetes mellitus Status: Chronic (8) Anoxic brain damage Status: Acute - Assessment and Plan (Free Text) Assessment: will renew IV rx
[2018-11-20] MEDS: Albuterol-Ipratrop 3 mg / 0.5 (3 ml) UD INH SCH ×6 (00:29→20:36)
[2018-11-20] MEDS: Linezolid 600 mg in D5W 300 ml 600 MG/300 ML BAG IVPB SCH ×2 (05:41→17:33)
[2018-11-20] MEDS: Pantoprazole 40 mg Susp UD GT SCH ×2 (10:56→21:03)
[2018-11-20] MEDS: Multiple Vitamins Tab PEG SCH (10:56)
[2018-11-20] MEDS: Simethicone 80 mg Chewtab PO SCH ×4 (11:03→21:02)
[2018-11-20] MEDS: Lactobacillus Acidophilus 500 MU Cap PO SCH ×2 (11:03→17:20)
[2018-11-20] MEDS: Modafinil 50 MG TAB PO SCH (11:03)
--- NOTE | 2018-11-20 13:20 | CP.PCM.PN ---
Subjective - Date & Time of Evaluation Date of Evaluation: 11/20/18 Time of Evaluation: 08:00 - Subjective Subjective: afebrile on IV rx at bedside chest tube in place Objective - Vital Signs/Intake and Output Vital Signs (last 24 hours): Temp Pulse Resp BP Pulse Ox 98.7 F 78 20 98/61 L 100 11/20/18 08:12 11/20/18 08:12 11/20/18 08:12 11/20/18 08:12 11/20/18 08:12 Intake and Output: 11/20/18 11/20/18 06:59 18:59 Intake Total 970 1020 Output Total 480 500 Balance 490 520 - Medications Medications: Current Medications Albuterol/Ipratropium (Duoneb 3 Mg/0.5 Mg (3 Ml) Ud) 3 ml INH RQ4 [facility] Last Admin: 11/20/18 07:30 Dose: 3 ml Ascorbic Acid (Vitamin C 500 Mg Tab) 1,000 mg NG DAILY [facility] Last Admin: 11/20/18 10:58 Dose: 1,000 mg Aspirin (Aspirin Chewable) 81 mg GT DAILY [facility] Last Admin: 11/14/18 11:00 Dose: 81 mg Dextrose (Dextrose 50% Inj) 0 ml IVP .STAT PRN; Protocol PRN Reason: Hypoglycemia Protocol Dextrose (Glutose 15) 0 gm PO .ONCE PRN; Protocol PRN Reason: Hypoglycemia Protocol Glucagon (Glucagen Diagnostic Kit) 0 mg IM .STAT PRN; Protocol PRN Reason: Hypoglycemia Protocol Cefepime HCl 1 gm/ Dextrose 50 mls @ 100 mls/hr IVPB Q12H [facility]; Protocol Last Admin: 11/20/18 11:04 Dose: 100 mls/hr Linezolid (Zyvox 600mg/300ml D5w) 600 mg in 300 mls @ 200 mls/hr IVPB Q12H [facility]; Protocol Last Admin: 11/20/18 05:41 Dose: 200 mls/hr Lactobacillus Acidophilus (Lactobacillus) 1 cap PO BID [facility] Last Admin: 11/20/18 11:03 Dose: 1 cap Methimazole (Tapazole) 10 mg PO Q8 [facility] Last Admin: 11/20/18 05:41 Dose: 10 mg Midodrine (Proamatine) 10 mg PO TID [facility] Last Admin: 11/20/18 11:33 Dose: 10 mg Modafinil (Provigil) 50 mg PO DAILY [facility] Last Admin: 11/20/18 11:03 Dose: 50 mg Multivitamins (Hexavitamin) 1 tab PEG DAILY [facility] Last Admin: 11/20/18 10:56 Dose: 1 tab Pantoprazole Sodium (Protonix Susp) 40 mg GT Q12H [facility] Last Admin: 11/20/18 10:56 Dose: 40 mg Simethicone (Mylicon Chew Tab) 80 mg PO QID [facility] Last Admin: 11/20/18 11:03 Dose: 80 mg Sodium Bicarbonate (Sodium Bicarbonate Tab) 650 mg PO BID [facility] Last Admin: 11/20/18 10:55 Dose: 650 mg Tamsulosin HCl (Flomax) 0.4 mg PEG DAILY [facility] Last Admin: 11/20/18 10:56 Dose: 0.4 mg - Labs Labs: 11/18/18 12:05 11/18/18 12:05 PT 13.3 SECONDS (9.7-12.2) H 10/23/18 06:05 INR 1.2 10/23/18 06:05 APTT 23 SECONDS (21-34) 10/02/18 06:10 - Constitutional Appears: Confused, Cachectic, Chronically Ill - Head Exam Head Exam: NORMOCEPHALIC - Eye Exam Eye Exam: absent: Scleral icterus - ENT Exam ENT Exam: Mucous Membranes Dry - Neck Exam Neck Exam: absent: Lymphadenopathy, Thyromegaly - Respiratory Exam Respiratory Exam: Decreased Breath Sounds, Rhonchi - Cardiovascular Exam Cardiovascular Exam: REGULAR RHYTHM - GI/Abdominal Exam GI & Abdominal Exam: Distended, Soft - Rectal Exam Rectal Exam: Deferred - Exam Exam: NORMAL INSPECTION - Extremities Exam Extremities Exam: Pedal Edema - Back Exam Back Exam: absent: CVA tenderness (L), CVA tenderness (R) - Neurological Exam Neurological Exam: Altered Assessment and Plan (1) NEHA (acute kidney injury) Status: Acute (2) Acute renal failure Status: Acute (3) Acute respiratory failure Status: Acute (4) Aspiration pneumonia Status: Acute (5) Septic shock Status: Acute (6) Urinary tract infection Status: Acute (7) Diabetes mellitus Status: Chronic (8) Anoxic brain damage Status: Acute - Assessment and Plan (Free Text) Assessment: renew IV antibiotics cont Chest tube drainage Dr Lozada follow up
[2018-11-20 13:57] LABS: BASO # 0.1 K/uL (0.0-0.2); BASO % 0.6 % (0.0-2.0); EOS # 0.5 K/uL (0.0-0.7); EOS % 6.1 % (0.0-4.0); HEMOGLOBIN 9.8 g/dL (11.0-16.0); LYMPH # 0.7 K/uL (1.0-4.3); LYMPH % 7.6 % (20.0-40.0); MEAN CELL VOLUME 89.1 fL (81.0-99.0); MEAN CORPUSCULAR HEMOGLOBIN 29.2 pg (27.0-31.0); MEAN CORPUSCULAR HGB CONC 32.8 g/dL (33.0-37.0); MEAN PLATELET VOLUME 8.2 fL (7.2-11.7); MONO # 0.6 K/uL (0.0-0.8); MONO % 6.9 % (0.0-10.0); NEUT # 7.1 K/uL (1.8-7.0); NEUT % 78.8 % (50.0-75.0); PLATELET COUNT 241 K/uL (130-400); RBC 3.35 Mil/uL (3.80-5.20)
[2018-11-20 14:10] LABS: ALB/GLOB RATIO 0.8 (1.0-2.1); ALBUMIN 2.4 g/dL (3.5-5.0); CALCIUM 7.5 mg/dl (8.6-10.4)
[2018-11-20] MEDS: Petrolatum Oint Foilpak (5 gm) TOP SCH (15:06)
--- NOTE | 2018-11-20 16:33 | CP.PCM.PN ---
<Bhanu Villegas - Last Filed: 11/20/18 16:46> Subjective - Date & Time of Evaluation Date of Evaluation: 11/20/18 Time of Evaluation: 16:29 - Subjective Subjective: hospitalist service Pt s/e at bedside, no acute events [id number] as per nursing, pt in same mental status Objective - Vital Signs/Intake and Output Vital Signs (last 24 hours): Temp Pulse Resp BP Pulse Ox 98.7 F 78 20 98/61 L 100 11/20/18 08:12 11/20/18 08:12 11/20/18 08:12 11/20/18 08:12 11/20/18 08:12 Intake and Output: 11/20/18 11/20/18 06:59 18:59 Intake Total 970 1640 Output Total 480 1025 Balance 490 615 - Medications Medications: Current Medications Albuterol/Ipratropium (Duoneb 3 Mg/0.5 Mg (3 Ml) Ud) 3 ml INH RQ4 [facility] Last Admin: 11/20/18 11:30 Dose: 3 ml Ascorbic Acid (Vitamin C 500 Mg Tab) 1,000 mg NG DAILY [facility] Last Admin: 11/20/18 10:58 Dose: 1,000 mg Aspirin (Aspirin Chewable) 81 mg GT DAILY [facility] Last Admin: 11/14/18 11:00 Dose: 81 mg Dextrose (Dextrose 50% Inj) 0 ml IVP .STAT PRN; Protocol PRN Reason: Hypoglycemia Protocol Dextrose (Glutose 15) 0 gm PO .ONCE PRN; Protocol PRN Reason: Hypoglycemia Protocol Emollient Ointment (Vaseline Oint) 5 gm TOP DAILY [facility] Last Admin: 11/20/18 15:06 Dose: 5 gm Glucagon (Glucagen Diagnostic Kit) 0 mg IM .STAT PRN; Protocol PRN Reason: Hypoglycemia Protocol Cefepime HCl 1 gm/ Dextrose 50 mls @ 100 mls/hr IVPB Q12H [facility]; Protocol Last Admin: 11/20/18 11:04 Dose: 100 mls/hr Linezolid (Zyvox 600mg/300ml D5w) 600 mg in 300 mls @ 200 mls/hr IVPB Q12H [facility]; Protocol Last Admin: 11/20/18 05:41 Dose: 200 mls/hr Lactobacillus Acidophilus (Lactobacillus) 1 cap PO BID [facility] Last Admin: 11/20/18 11:03 Dose: 1 cap Methimazole (Tapazole) 10 mg PO Q8 [facility] Last Admin: 11/20/18 15:05 Dose: 10 mg Midodrine (Proamatine) 10 mg PO TID [facility] Last Admin: 11/20/18 15:03 Dose: 10 mg Modafinil (Provigil) 50 mg PO DAILY [facility] Last Admin: 11/20/18 11:03 Dose: 50 mg Multivitamins (Hexavitamin) 1 tab PEG DAILY [facility] Last Admin: 11/20/18 10:56 Dose: 1 tab Pantoprazole Sodium (Protonix Susp) 40 mg GT Q12H [facility] Last Admin: 11/20/18 10:56 Dose: 40 mg Simethicone (Mylicon Chew Tab) 80 mg PO QID [facility] Last Admin: 11/20/18 15:04 Dose: 80 mg Sodium Bicarbonate (Sodium Bicarbonate Tab) 650 mg PO BID [facility] Last Admin: 11/20/18 10:55 Dose: 650 mg Tamsulosin HCl (Flomax) 0.4 mg PEG DAILY [facility] Last Admin: 11/20/18 10:56 Dose: 0.4 mg - Labs Labs: 11/20/18 13:50 11/20/18 13:50 PT 13.3 SECONDS (9.7-12.2) H 10/23/18 06:05 INR 1.2 10/23/18 06:05 APTT 23 SECONDS (21-34) 10/02/18 06:10 - Additional Findings Additional findings: - Constitutional Appears: Chronically Ill - Head Exam Head Exam: ATRAUMATIC, NORMAL INSPECTION, NORMOCEPHALIC - Eye Exam Eye Exam: Nystagmus, Scleral icterus - ENT Exam ENT Exam: Mucous Membranes Dry - Neck Exam Additional comments: trach with vent in place; C/D/I; no active bleeding or purulent discarge - Respiratory Exam Respiratory Exam: NORMAL BREATHING PATTERN Additional comments: increased secretions, ronchi bilaterally. - Cardiovascular Exam Cardiovascular Exam: REGULAR RHYTHM, +S1, +S2 - GI/Abdominal Exam GI & Abdominal Exam: Soft, Normal Bowel Sounds. absent: Distended, Firm, Guarding, Tenderness, Rebound Additional comments: noted PEG tube in place w dressing c/d/i; no signs of infection or bleeding, no residuals per nursing - Exam Additional comments: mcintyre in place - Extremities Exam Extremities Exam: Normal Inspection. absent: Calf Tenderness Additional comments: dependant edema, left worse than right - Neurological Exam Neurological Exam: absent: Alert, Oriented x3 - Skin Skin Exam: Dry, Intact, Normal Color Additional comments: [address] outputting fluid R 100cc L 0cc last 24hrs Assessment and Plan - Assessment and Plan (Free Text) Assessment: This is a 52 yo female originally admitted to the ICU for septic shock 2/2 to PNA/UTI worsened by cardiac arrest and anoxic brain injury. Patient found to have apical thrombus in heart. Patient is s/p trach and PEG. Patient still unable to be weaned off vent. She has had multiple complications, including DVT and infections (PNA, UTI). s/p IVC filter 08/23. s/p multiple chest tube placements Sep 19-Oct 21. s/p LP 09/15. Patient has shown minimal improvement of cognitive function during the course of this hospitalization. Patient does not have any insurance and therefore cannot be placed in rehab/NH. Multiple conversations with regarding poor prognosis- he wishes to keep her full code. Palliative and pastoral care have been on board. Plan: Altered mental status/Encephalopathy- suspect anoxic encephalopathy -Code Blue 07/10 and 07/20 -Moved to med surg floor 11/08 -Chest tubes x2 in place -Off sedation -Modafinil 50 mg PO daily -CT head (08/28/18): No hemorrhage or midline shift -MRI brain (09/08/18): No definite mass effect or suspicious extra axial collection. No evidence of acute or subacute brain infarction at this time. Borderline pattern of hydrocephalus. -LP 09/15/18: normal opening pressure - LDH 30, glucose 69, tot prot 67 - CSF Cx: no growth - Other CSF studies pending- called lab 11/01, they will contact [facility] for update -Neurology consulted (George/Ankit) Acute respiratory failure- s/p trach on vent, unable to wean - Tracheostomy 07/24/18, s/p bronchoscopy 08/23 - Patient had tolerated trach collars in early Aug 2018; however she has been on vent to trach since. Fi02: 40% - Bronchoscopy (08/23/18) by Dr. Lozada - Bronchial washings: Pseudomonas Aeruginosa - Fungal Cx: negative - Mycobacterial Cx: negative - Chest physiotherapy increased secretions, but pt is being suctioned by RN regularly - Most recent CT chest (10/27/18): Large bilateral pleural effusions and associated consolidations. Trace pericardial effusion. Borderline cardiomegaly. Enlarged heterogeneous partially imaged thyroid gland. - Monitor CO2 - ABG on FiO2 40 (11/02/18): pH 7.34, pCO2 29, pO2 106 - Start Sodium bicarb 650 mg PEG BID - Pulmonary consulted (N[place]) Anemia 2/2 to Chronic Diseases +/- Dysfunctional uterine bleeding, stable -Hg 10.8 -Stool occult blood negative -Iron normal, TIBC low, Iron saturation normal, Ferritin normal -B12, folate normal -Vaginal US: thickened endometrium -Transfused pRBC: 1 unit 07/22/18, 2 units 08/13/18, 1 unit 08/17/18, 1 unit 08/23/18, 2 unit 11/15/18 -OBGYN consulted (Gilberto)- no hysterectomy -During transfusion pt went hypotensive 77/41, PRBC adm rate increased from 120 to 150, 1L NS bolus w/ albumin IVPB on other arm -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 -Repeat AXR (11/02/18): Normal bowel gas pattern. -PEG tube feeds goal rate 40:[facility]mocare -Reglan discontinued due to interaction with zyvox -Miralax PEG BID -Simethicone 80 mg PEG QID Pleural effusions- s/p bilateral chest tubes - Multiple chest tubes and thoracenteses for effusions, most recent s/p bilateral chest tubes 10/27 - Pleural fluid from 10/13/18 - WBC 794, RBC 2083, tot cells 100, neutrophils 87% - Tot prot<3, LDH 145, glucose 146 - CT chest (10/27/18): Placment of 8.5 Macedonian pigtail drainage catheter within right and left pleural space - Most recent CXR (10/31/18): Status post bilateral chest tube placements. Marked reduction of bilateral pleural effusions, commensurate re-expansion of both lungs. - Repeat CXR 11/02: Worsening pulmonary edema - IR consulted (Partha) - Pulmonology consulted (Neville) Thyroid disorder - Thyroid US (07/16/18): Heterogeneous thyroid echotexture. Numerous nodules as described above. Suggest percutaneous biopsy of the following suspicious nodules; 1.8 x 0.9 x 1.7 cm right lower pole nodule, 1.0 x 0.7 x 0.9 cm right upper pole lesion with intracystic vascular nodule, complex left upper pole nodule measuring 2.1 x 1.5 x 1.8 cm. - Note: Initial thyroid studies taken before amiodarone was given- this is NOT amiodarone induced - TSH <0.02 in 07/2018, 10/31/18 TSH 18.10 - Free T4 >3 in 07/2018, 10/31/2018 free T4 0.24 - wnl TSH, free T4 on 11/08/18 - Methimazole to 10 mg PO Q8H - Off Propranolol 5 mg PO TID due to hypotension - Endocrinology consulted (Irwin) Hypotension -improved, stable -emains stable in 100s-120s/50s-60s - Monitor albumin, administer PRN doses -Midodrine 10 mg PEG TID Atrial fibrillation w/ RVR, resolved -EKG (10/29/18): Afib HR 130 -Cardiology consulted (Nolan) Deconditioning -Patient needs aggressive continued PT/OT- PT signed off as patient does not follow directions -Nursing and move patient OOB to chair -Social work note (08/09/18): patient is undocumented, has not health insurance, discharge planning will be at home with Septic Shock 2/2 Pneumonia and Urinary Tract Infection (VRE and Pseudomonas)- urinary retention -Off pressors (previously on 3) -Mild leukocytosis (12.4) -Afebrile since 10/21/18 -Procal 1.49 on 11/01/18, 0.66 on 10/21/18 -CXR (11/02/18): worsening pulmonary edema -Most recent blood cultures negative -Most recent urine cultures (10/21/18) +VRE/Pseudomonas, suspect patient likely colonized -Mcintyre in place -Midline removed 11/01/18 -PICC team unable to insert PICC line 11/13/18 -Flomax 0.4 mg PEG daily -Cefepime 1 g Q12H- started 10/27 -ID consulted (Vinod) -neg bc -0.93 procal Apical thrombus -Echo (07/07/18) before cardiac arrest: EF 40-45% -Echo (07/10/19) after cardiac arrest: EF 40%, LV large apical hypokinesis, large 30x20 mm soft tissue apical sessile mass suggestive of thrombus -Echo (08/17/19): LV clot, no significant change -Too high risk for HUBERT -Previously on heparin gtt, Eliquis- stopped due to anemia and vaginal bleeding -ASA 81 mg PEG daily LLE Deep vein thrombosis s/p IVC filter -Venous Doppler (07/18/18): Acute thrombosis of the left common femoral and femoral veins with severe reduction of the venous return -Resolved on repeat imaging -Previously on heparin gtt, Eliquis- stopped due to anemia and vaginal bleeding -s/p IVC filter on 08/23/18 -Vasc surgery consulted (Vicky) T2DM -A1c: 7.8 -Hypoglycemia protocol -Accuchecks Q6H Vtach- Code blue x2 (07/10/18) - Previously on amiodarone ggt - Cardiology consulted (Nolan) NEHA, resolved - Required dialysis early in admission before code blues - Monitor BUN, Cr Shock liver, resolved -Hepatitis panel negative -HIV negative -Monitor LFTs PPx, Diet, Disposition -DVT ppx: scds -GI ppx: protonix 40 via PEG q12 -Tube feeds -Pulmocare goal rate 40 mL/hr- feeds restarted 11/04 -Lactobacillus 1 cap PEG Q12H -Multivitamin PEG daily -Vitamin C 1,000 PEG daily -Vitamin A&E <Sean Manjarrez - Last Filed: 11/20/18 17:19> Objective - Vital Signs/Intake and Output Vital Signs (last 24 hours): Temp Pulse Resp BP Pulse Ox 97.4 F L 82 13 116/62 100 11/20/18 16:00 11/20/18 16:00 11/20/18 16:00 11/20/18 16:00 11/20/18 16:00 Intake and Output: 11/20/18 11/20/18 06:59 18:59 Intake Total 970 1640 Output Total 480 1025 Balance 490 615 - Medications Medications: Current Medications Albuterol/Ipratropium (Duoneb 3 Mg/0.5 Mg (3 Ml) Ud) 3 ml INH RQ4 [facility] Last Admin: 11/20/18 17:03 Dose: 3 ml Ascorbic Acid (Vitamin C 500 Mg Tab) 1,000 mg NG DAILY [facility] Last Admin: 11/20/18 10:58 Dose: 1,000 mg Aspirin (Aspirin Chewable) 81 mg GT DAILY [facility] Last Admin: 11/14/18 11:00 Dose: 81 mg Dextrose (Dextrose 50% Inj) 0 ml IVP .STAT PRN; Protocol PRN Reason: Hypoglycemia Protocol Dextrose (Glutose 15) 0 gm PO .ONCE PRN; Protocol PRN Reason: Hypoglycemia Protocol Emollient Ointment (Vaseline Oint) 5 gm TOP DAILY [facility] Last Admin: 11/20/18 15:06 Dose: 5 gm Glucagon (Glucagen Diagnostic Kit) 0 mg IM .STAT PRN; Protocol PRN Reason: Hypoglycemia Protocol Cefepime HCl 1 gm/ Dextrose 50 mls @ 100 mls/hr IVPB Q12H [facility]; Protocol Last Admin: 11/20/18 11:04 Dose: 100 mls/hr Linezolid (Zyvox 600mg/300ml D5w) 600 mg in 300 mls @ 200 mls/hr IVPB Q12H [facility]; Protocol Last Admin: 11/20/18 05:41 Dose: 200 mls/hr Lactobacillus Acidophilus (Lactobacillus) 1 cap PO BID [facility] Last Admin: 11/20/18 11:03 Dose: 1 cap Methimazole (Tapazole) 10 mg PO Q8 [facility] Last Admin: 11/20/18 15:05 Dose: 10 mg Midodrine (Proamatine) 10 mg PO TID [facility] Last Admin: 11/20/18 15:03 Dose: 10 mg Modafinil (Provigil) 50 mg PO DAILY [facility] Last Admin: 11/20/18 11:03 Dose: 50 mg Multivitamins (Hexavitamin) 1 tab PEG DAILY [facility] Last Admin: 11/20/18 10:56 Dose: 1 tab Pantoprazole Sodium (Protonix Susp) 40 mg GT Q12H [facility] Last Admin: 11/20/18 10:56 Dose: 40 mg Simethicone (Mylicon Chew Tab) 80 mg PO QID [facility] Last Admin: 11/20/18 15:04 Dose: 80 mg Sodium Bicarbonate (Sodium Bicarbonate Tab) 650 mg PO BID [facility] Last Admin: 11/20/18 10:55 Dose: 650 mg Tamsulosin HCl (Flomax) 0.4 mg PEG DAILY [facility] Last Admin: 11/20/18 10:56 Dose: 0.4 mg - Labs Labs: 11/20/18 13:50 11/20/18 13:50 PT 13.3 SECONDS (9.7-12.2) H 10/23/18 06:05 INR 1.2 10/23/18 06:05 APTT 23 SECONDS (21-34) 10/02/18 06:10 Attending/Attestation - Attestation I have personally seen and examined this patient.: Yes I have fully participated in the care of the patient.: Yes I have reviewed all pertinent clinical information, including history, physical exam and plan: Yes
[2018-11-20 16:52] LABS: ANISOCYTOSIS SLIGHT; BANDS 1 % (0-2); BASOPHIL 1 % (0-2); EOSINOPHIL 5 % (0-4); HYPOCHROMIC SLIGHT; LYMPHOCYTE 7 % (20-40); MONOCYTE 6 % (0-10); NEUTROPHIL 80 % (50-75); PLATELET ESTIMATE NORMAL (NORMAL); POIKILOCYTOSIS SLIGHT; TOTAL CELLS COUNTED 100
[2018-11-20 16:53] LABS: BURR CELLS SLIGHT
[2018-11-21] MEDS: Albuterol-Ipratrop 3 mg / 0.5 (3 ml) UD INH SCH ×6 (00:05→19:32)
[2018-11-21] MEDS: Linezolid 600 mg in D5W 300 ml 600 MG/300 ML BAG IVPB SCH ×2 (05:34→18:04)
--- NOTE | 2018-11-21 07:17 | CP.PCM.PN ---
<Bhanu Villegas - Last Filed: 11/21/18 16:15> Subjective - Date & Time of Evaluation Date of Evaluation: 11/21/18 Time of Evaluation: 07:16 - Subjective Subjective: HOSPITALIST SERVICE Pt s/e at bedside, as per nursing no acute events overnight, R chest tube draining 100cc today, L 0cc, Objective - Vital Signs/Intake and Output Vital Signs (last 24 hours): Temp Pulse Resp BP Pulse Ox 98.9 F 73 18 109/63 100 11/21/18 00:00 11/21/18 00:00 11/21/18 00:00 11/21/18 00:00 11/21/18 00:00 Intake and Output: 11/21/18 11/21/18 06:59 18:59 Intake Total 820 Output Total 300 Balance 520 - Medications Medications: Current Medications Albuterol/Ipratropium (Duoneb 3 Mg/0.5 Mg (3 Ml) Ud) 3 ml INH RQ4 [facility] Last Admin: 11/21/18 04:20 Dose: 3 ml Ascorbic Acid (Vitamin C 500 Mg Tab) 1,000 mg NG DAILY [facility] Last Admin: 11/20/18 10:58 Dose: 1,000 mg Aspirin (Aspirin Chewable) 81 mg GT DAILY [facility] Last Admin: 11/14/18 11:00 Dose: 81 mg Dextrose (Dextrose 50% Inj) 0 ml IVP .STAT PRN; Protocol PRN Reason: Hypoglycemia Protocol Dextrose (Glutose 15) 0 gm PO .ONCE PRN; Protocol PRN Reason: Hypoglycemia Protocol Emollient Ointment (Vaseline Oint) 5 gm TOP DAILY [facility] Last Admin: 11/20/18 15:06 Dose: 5 gm Glucagon (Glucagen Diagnostic Kit) 0 mg IM .STAT PRN; Protocol PRN Reason: Hypoglycemia Protocol Cefepime HCl 1 gm/ Dextrose 50 mls @ 100 mls/hr IVPB Q12H [facility]; Protocol Last Admin: 11/20/18 21:03 Dose: 100 mls/hr Linezolid (Zyvox 600mg/300ml D5w) 600 mg in 300 mls @ 200 mls/hr IVPB Q12H [facility]; Protocol Last Admin: 11/21/18 05:34 Dose: 200 mls/hr Lactobacillus Acidophilus (Lactobacillus) 1 cap PO BID [facility] Last Admin: 11/20/18 17:20 Dose: 1 cap Methimazole (Tapazole) 10 mg PO Q8 [facility] Last Admin: 11/20/18 21:02 Dose: 10 mg Midodrine (Proamatine) 10 mg PO TID [facility] Last Admin: 11/20/18 17:20 Dose: 10 mg Modafinil (Provigil) 50 mg PO DAILY [facility] Last Admin: 11/20/18 11:03 Dose: 50 mg Multivitamins (Hexavitamin) 1 tab PEG DAILY [facility] Last Admin: 11/20/18 10:56 Dose: 1 tab Pantoprazole Sodium (Protonix Susp) 40 mg GT Q12H [facility] Last Admin: 11/20/18 21:03 Dose: 40 mg Simethicone (Mylicon Chew Tab) 80 mg PO QID [facility] Last Admin: 11/20/18 21:02 Dose: 80 mg Sodium Bicarbonate (Sodium Bicarbonate Tab) 650 mg PO BID [facility] Last Admin: 11/20/18 17:20 Dose: 650 mg Tamsulosin HCl (Flomax) 0.4 mg PEG DAILY [facility] Last Admin: 11/20/18 10:56 Dose: 0.4 mg - Labs Labs: 11/20/18 13:50 11/20/18 13:50 PT 13.3 SECONDS (9.7-12.2) H 10/23/18 06:05 INR 1.2 10/23/18 06:05 APTT 23 SECONDS (21-34) 10/02/18 06:10 - Additional Findings Additional findings: - Constitutional Appears: Chronically Ill - Head Exam Head Exam: ATRAUMATIC, NORMAL INSPECTION, NORMOCEPHALIC - Eye Exam Eye Exam: Nystagmus, Scleral icterus - ENT Exam ENT Exam: Mucous Membranes Dry - Neck Exam Additional comments: trach with vent in place; C/D/I; no active bleeding or purulent discarge - Respiratory Exam Respiratory Exam: NORMAL BREATHING PATTERN Additional comments: increased secretions, ronchi bilaterally. - Cardiovascular Exam Cardiovascular Exam: REGULAR RHYTHM, +S1, +S2 - GI/Abdominal Exam GI & Abdominal Exam: Soft, Normal Bowel Sounds. absent: Distended, Firm, Guarding, Tenderness, Rebound Additional comments: noted PEG tube in place w dressing c/d/i; no signs of infection or bleeding, no residuals per nursing - Exam Additional comments: mcintyre in place - Extremities Exam Extremities Exam: Normal Inspection. absent: Calf Tenderness Additional comments: dependant edema, left worse than right - Neurological Exam Neurological Exam: absent: Alert, Oriented x3 - Skin Skin Exam: Dry, Intact, Normal Color Additional comments: [address] outputting fluid R 100cc L 0cc last 24hrs Assessment and Plan - Assessment and Plan (Free Text) Assessment: This is a 52 yo female originally admitted to the ICU for septic shock 2/2 to PNA/UTI worsened by cardiac arrest and anoxic brain injury. Patient found to have apical thrombus in heart. Patient is s/p trach and PEG. Patient still unable to be weaned off vent. She has had multiple complications, including DVT and infections (PNA, UTI). s/p IVC filter 08/23. s/p multiple chest tube placements Sep 19-Oct 21. s/p LP 09/15. Patient has shown minimal improvement of cognitive function during the course of this hospitalization. Patient does not have any insurance and therefore cannot be placed in rehab/NH. Multiple conve rsations with regarding poor prognosis- he wishes to keep her full code. Palliative and pastoral care have been on board. Plan: Altered mental status/Encephalopathy- suspect anoxic encephalopathy -Code Blue 07/10 and 07/20 -Moved to med surg floor 11/08 -Chest tubes x2 in place -Off sedation -Modafinil 50 mg PO daily -CT head (08/28/18): No hemorrhage or midline shift -MRI brain (09/08/18): No definite mass effect or suspicious extra axial collection. No evidence of acute or subacute brain infarction at this time. Borderline pattern of hydrocephalus. -LP 09/15/18: normal opening pressure - LDH 30, glucose 69, tot prot 67 - CSF Cx: no growth - Other CSF studies pending- called lab 11/01, they will contact [facility] for upd ate -Neurology consulted (George/Ankit) Acute respiratory failure- s/p trach on vent, unable to wean - Tracheostomy 07/24/18, s/p bronchoscopy 08/23 - Patient had tolerated trach collars in early Aug 2018; however she has been on vent to trach since. Fi02: 40% - Bronchoscopy (08/23/18) by Dr. Lozada - Bronchial washings: Pseudomonas Aeruginosa - Fungal Cx: negative - Mycobacterial Cx: negative - Chest physiotherapy increased secretions, but pt is being suctioned by RN regularly - Most recent CT chest (10/27/18): Large bilateral pleural effusions and associated consolidations. Trace pericardial effusion. Borderline cardiomegaly. Enlarged heterogeneous partially imaged thyroid gland. - Monitor CO2 - ABG on FiO2 40 (11/02/18): pH 7.34, pCO2 29, pO2 106 - Start Sodium bicarb 650 mg PEG BID - Pulmonary consulted (Neville) Anemia 2/2 to Chronic Diseases +/- Dysfunctional uterine bleeding, stable -Hg 9.8 -Stool occult blood negative -Iron normal, TIBC low, Iron saturation normal, Ferritin normal -B12, folate normal -Vaginal US: thickened endometrium -Transfused pRBC: 1 unit 07/22/18, 2 units 08/13/18, 1 unit 08/17/18, 1 unit 08/23/18, 2 unit 11/15/18 -OBGYN consulted (Gilberto)- no hysterectomy -During transfusion pt went hypotensive 77/41, PRBC adm rate increased from 120 to 150, 1L NS bolus w/ albumin IVPB on other arm -BP 109/80 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 -Repeat AXR (11/02/18): Normal bowel gas pattern. -PEG tube feeds goal rate 40:[facility] -Reglan discontinued due to interaction with zyvox -Miralax PEG BID -Simethicone 80 mg PEG QID Pleural effusions- s/p bilateral chest tubes - Multiple chest tubes and thoracenteses for effusions, most recent s/p bilat eral chest tubes 10/27 - Pleural fluid from 10/13/18 - WBC 794, RBC 2083, tot cells 100, neutrophils 87% - Tot prot<3, LDH 145, glucose 146 - CT chest (10/27/18): Placment of 8.5 [place] pigtail drainage catheter within right and left pleural space - Most recent CXR (10/31/18): Status post bilateral chest tube placements. Marked reduction of bilateral pleural effusions, commensurate re-expansion of both lungs. - Repeat CXR 11/02: Worsening pulmonary edema - IR consulted (Partha) - Pulmonology consulted (Neville) Thyroid disorder - Thyroid US (07/16/18): Heterogeneous thyroid echotexture. Numerous nodules as described above. Suggest percutaneous biopsy of the following suspicious nodules; 1.8 x 0.9 x 1.7 cm right lower pole nodule, 1.0 x 0.7 x 0.9 cm right upper pole lesion with intracystic vascular nodule, complex left upper pole nodule measuring 2.1 x 1.5 x 1.8 cm. - Note: Initial thyroid studies taken before amiodarone was given- this is NOT amiodarone induced - TSH <0.02 in 07/2018, 10/31/18 TSH 18.10 - Free T4 >3 in 07/2018, 10/31/2018 free T4 0.24 - wnl TSH, free T4 on 11/08/18 - Methimazole to 10 mg PO Q8H - Off Propranolol 5 mg PO TID due to hypotension - Endocrinology consulted (Irwin) Hypotension -improved, stable -emains stable in 100s-120s/50s-60s - Monitor albumin, administer PRN doses -Midodrine 10 mg PEG TID Atrial fibrillation w/ RVR, resolved -EKG (10/29/18): Afib HR 130 -Cardiology consulted (Nolan) Deconditioning -Patient needs aggressive continued PT/OT- PT signed off as patient does not follow directions -Nursing and move patient OOB to chair -Social work note (08/09/18): patient is undocumented, has not health insurance, discharge planning will be at home with Septic Shock 2/2 Pneumonia and Urinary Tract Infection (VRE and Pseudomonas)- urinary retention -Off pressors (previously on 3) -Mild leukocytosis (12.4) -Afebrile since 10/21/18 -Procal 1.49 on 11/01/18, 0.66 on 10/21/18 -CXR (11/02/18): worsening pulmonary edema -Most recent blood cultures negative -Most recent urine cultures (10/21/18) +VRE/Pseudomonas, suspect patient likely colonized -Mcintyre in place -Midline removed 11/01/18 -PICC team unable to insert PICC line 11/13/18 -Flomax 0.4 mg PEG daily -Cefepime 1 g Q12H- started 10/27 -ID consulted (Vinod) -neg bc -0.93 procal Apical thrombus -Echo (07/07/18) before cardiac arrest: EF 40-45% -Echo (07/10/19) after cardiac arrest: EF 40%, LV large apical hypokinesis, large 30x20 mm soft tissue apical sessile mass suggestive of thrombus -Echo (08/17/19): LV clot, no significant change -Too high risk for HUBERT -Previously on heparin gtt, Eliquis- stopped due to anemia and vaginal bleeding -ASA 81 mg PEG daily LLE Deep vein thrombosis s/p IVC filter -Venous Doppler (07/18/18): Acute thrombosis of the left common femoral and femoral veins with severe reduction of the venous return -Resolved on repeat imaging -Previously on heparin gtt, Eliquis- stopped due to anemia and vaginal bleeding -s/p IVC filter on 08/23/18 -Vasc surgery consulted (Vicky) T2DM -A1c: 7.8 -Hypoglycemia protocol -Accuchecks Q6H Vtach- Code blue x2 (07/10/18) - Previously on amiodarone ggt - Cardiology consulted (Nolan) NEHA, resolved - Required dialysis early in admission before code blues - Monitor BUN, Cr Shock liver, resolved -Hepatitis panel negative -HIV negative -Monitor LFTs PPx, Diet, Disposition -DVT ppx: scds -GI ppx: protonix 40 via PEG q12 -Tube feeds -Pulmocare goal rate 40 mL/hr- feeds restarted 11/04 -Lactobacillus 1 cap PEG Q12H -Multivitamin PEG daily -Vitamin C 1,000 PEG daily -Vitamin A&E <Sean Manjarrez - Last Filed: 11/21/18 16:42> Objective - Vital Signs/Intake and Output Vital Signs (last 24 hours): Temp Pulse Resp BP Pulse Ox 98.7 F 88 20 109/61 99 11/21/18 08:30 11/21/18 08:30 11/21/18 08:30 11/21/18 08:30 11/21/18 08:30 Intake and Output: 11/21/18 11/21/18 06:59 18:59 Intake Total 1690 290 Output Total 777 575 Balance 930 -285 - Medications Medications: Current Medications Albuterol/Ipratropium (Duoneb 3 Mg/0.5 Mg (3 Ml) Ud) 3 ml INH RQ4 [facility] Last Admin: 11/21/18 15:51 Dose: 3 ml Ascorbic Acid (Vitamin C 500 Mg Tab) 1,000 mg NG DAILY [facility] Last Admin: 11/21/18 10:00 Dose: 1,000 mg Aspirin (Aspirin Chewable) 81 mg GT DAILY [facility] Last Admin: 11/14/18 11:00 Dose: 81 mg Dextrose (Dextrose 50% Inj) 0 ml IVP .STAT PRN; Protocol PRN Reason: Hypoglycemia Protocol Dextrose (Glutose 15) 0 gm PO .ONCE PRN; Protocol PRN Reason: Hypoglycemia Protocol Emollient Ointment (Vaseline Oint) 5 gm TOP DAILY [facility] Last Admin: 11/21/18 10:04 Dose: 5 gm Glucagon (Glucagen Diagnostic Kit) 0 mg IM .STAT PRN; Protocol PRN Reason: Hypoglycemia Protocol Cefepime HCl 1 gm/ Dextrose 50 mls @ 100 mls/hr IVPB Q12H [facility]; Protocol Last Admin: 11/21/18 08:42 Dose: 100 mls/hr Linezolid (Zyvox 600mg/300ml D5w) 600 mg in 300 mls @ 200 mls/hr IVPB Q12H [facility]; Protocol Last Admin: 11/21/18 05:34 Dose: 200 mls/hr Lactobacillus Acidophilus (Lactobacillus) 1 cap PO BID [facility] Last Admin: 11/21/18 10:01 Dose: 1 cap Methimazole (Tapazole) 10 mg PO Q8 [facility] Last Admin: 11/21/18 13:14 Dose: 10 mg Midodrine (Proamatine) 10 mg PO TID [facility] Last Admin: 11/21/18 13:16 Dose: 10 mg Modafinil (Provigil) 50 mg PO DAILY [facility] Last Admin: 11/21/18 10:00 Dose: 50 mg Multivitamins (Hexavitamin) 1 tab PEG DAILY [facility] Last Admin: 11/21/18 10:03 Dose: 1 tab Pantoprazole Sodium (Protonix Susp) 40 mg GT Q12H [facility] Last Admin: 11/21/18 10:01 Dose: 40 mg Simethicone (Mylicon Chew Tab) 80 mg PO QID [facility] Last Admin: 11/21/18 13:14 Dose: 80 mg Sodium Bicarbonate (Sodium Bicarbonate Tab) 650 mg PO BID [facility] Last Admin: 11/21/18 10:00 Dose: 650 mg Tamsulosin HCl (Flomax) 0.4 mg PEG DAILY [facility] Last Admin: 11/21/18 10:03 Dose: 0.4 mg - Labs Labs: 11/20/18 13:50 11/20/18 13:50 PT 13.3 SECONDS (9.7-12.2) H 10/23/18 06:05 INR 1.2 10/23/18 06:05 APTT 23 SECONDS (21-34) 10/02/18 06:10 Attending/Attestation - Attestation I have personally seen and examined this patient.: Yes I have fully participated in the care of the patient.: Yes I have reviewed all pertinent clinical information, including history, physical exam and plan: Yes
[2018-11-21] MEDS: Modafinil 50 MG TAB PO SCH (10:00)
[2018-11-21] MEDS: Pantoprazole 40 mg Susp UD GT SCH ×2 (10:01→21:51)
[2018-11-21] MEDS: Lactobacillus Acidophilus 500 MU Cap PO SCH ×2 (10:01→18:01)
[2018-11-21] MEDS: Multiple Vitamins Tab PEG SCH (10:03)
[2018-11-21] MEDS: Simethicone 80 mg Chewtab PO SCH ×4 (10:03→21:55)
[2018-11-21] MEDS: Petrolatum Oint Foilpak (5 gm) TOP SCH (10:04)
--- NOTE | 2018-11-21 12:09 | CP.PCM.PN ---
Subjective - Date & Time of Evaluation Date of Evaluation: 11/21/18 Time of Evaluation: 09:00 - Subjective Subjective: sen on rounds in NAD Objective - Vital Signs/Intake and Output Vital Signs (last 24 hours): Temp Pulse Resp BP Pulse Ox 98.7 F 88 20 109/61 99 11/21/18 08:30 11/21/18 08:30 11/21/18 08:30 11/21/18 08:30 11/21/18 08:30 Intake and Output: 11/21/18 11/21/18 06:59 18:59 Intake Total 1690 Output Total 760 Balance 930 - Medications Medications: Current Medications Albuterol/Ipratropium (Duoneb 3 Mg/0.5 Mg (3 Ml) Ud) 3 ml INH RQ4 [facility] Last Admin: 11/21/18 07:35 Dose: 3 ml Ascorbic Acid (Vitamin C 500 Mg Tab) 1,000 mg NG DAILY [facility] Last Admin: 11/21/18 10:00 Dose: 1,000 mg Aspirin (Aspirin Chewable) 81 mg GT DAILY [facility] Last Admin: 11/14/18 11:00 Dose: 81 mg Dextrose (Dextrose 50% Inj) 0 ml IVP .STAT PRN; Protocol PRN Reason: Hypoglycemia Protocol Dextrose (Glutose 15) 0 gm PO .ONCE PRN; Protocol PRN Reason: Hypoglycemia Protocol Emollient Ointment (Vaseline Oint) 5 gm TOP DAILY [facility] Last Admin: 11/21/18 10:04 Dose: 5 gm Glucagon (Glucagen Diagnostic Kit) 0 mg IM .STAT PRN; Protocol PRN Reason: Hypoglycemia Protocol Cefepime HCl 1 gm/ Dextrose 50 mls @ 100 mls/hr IVPB Q12H [facility]; Protocol Last Admin: 11/21/18 08:42 Dose: 100 mls/hr Linezolid (Zyvox 600mg/300ml D5w) 600 mg in 300 mls @ 200 mls/hr IVPB Q12H [facility]; Protocol Last Admin: 11/21/18 05:34 Dose: 200 mls/hr Lactobacillus Acidophilus (Lactobacillus) 1 cap PO BID [facility] Last Admin: 11/21/18 10:01 Dose: 1 cap Methimazole (Tapazole) 10 mg PO Q8 [facility] Last Admin: 11/20/18 21:02 Dose: 10 mg Midodrine (Proamatine) 10 mg PO TID [facility] Last Admin: 11/21/18 10:01 Dose: 10 mg Modafinil (Provigil) 50 mg PO DAILY [facility] Last Admin: 11/21/18 10:00 Dose: 50 mg Multivitamins (Hexavitamin) 1 tab PEG DAILY [facility] Last Admin: 11/21/18 10:03 Dose: 1 tab Pantoprazole Sodium (Protonix Susp) 40 mg GT Q12H [facility] Last Admin: 11/21/18 10:01 Dose: 40 mg Simethicone (Mylicon Chew Tab) 80 mg PO QID [facility] Last Admin: 11/21/18 10:03 Dose: 80 mg Sodium Bicarbonate (Sodium Bicarbonate Tab) 650 mg PO BID [facility] Last Admin: 11/21/18 10:00 Dose: 650 mg Tamsulosin HCl (Flomax) 0.4 mg PEG DAILY [facility] Last Admin: 11/21/18 10:03 Dose: 0.4 mg - Labs Labs: 11/20/18 13:50 11/20/18 13:50 PT 13.3 SECONDS (9.7-12.2) H 10/23/18 06:05 INR 1.2 10/23/18 06:05 APTT 23 SECONDS (21-34) 10/02/18 06:10 - Constitutional Appears: Non-toxic, Cachectic, Chronically Ill - Head Exam Head Exam: NORMOCEPHALIC - Eye Exam Eye Exam: absent: Scleral icterus - ENT Exam ENT Exam: Mucous Membranes Dry - Neck Exam Neck Exam: absent: Lymphadenopathy Additional comments: trach + - Respiratory Exam Respiratory Exam: Decreased Breath Sounds, Rhonchi - Cardiovascular Exam Cardiovascular Exam: REGULAR RHYTHM, +S1, +S2 - GI/Abdominal Exam GI & Abdominal Exam: Distended, Soft. absent: Tenderness - Rectal Exam Rectal Exam: Deferred - Exam Exam: NORMAL INSPECTION - Extremities Exam Extremities Exam: Pedal Edema - Back Exam Back Exam: absent: CVA tenderness (L), CVA tenderness (R) - Neurological Exam Neurological Exam: Altered Assessment and Plan (1) NEHA (acute kidney injury) Status: Acute (2) Acute renal failure Status: Acute (3) Acute respiratory failure Status: Acute (4) Aspiration pneumonia Status: Acute (5) Septic shock Status: Acute (6) Urinary tract infection Status: Acute (7) Diabetes mellitus Status: Chronic (8) Anoxic brain damage Status: Acute - Assessment and Plan (Free Text) Assessment: cont rx VRE urine cont cefepime for Pseudomonas in lung
[2018-11-22] MEDS: Albuterol-Ipratrop 3 mg / 0.5 (3 ml) UD INH SCH ×6 (00:30→20:44)
[2018-11-22] MEDS: Linezolid 600 mg in D5W 300 ml 600 MG/300 ML BAG IVPB SCH ×2 (05:44→17:57)
--- NOTE | 2018-11-22 07:05 | CP.PCM.PN ---
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 Per nursing, Chest tubes 0 output overnight bilaterally, feeds were increased to 50/hr no residuals noted, worsening sacral ulcer, new mattress waiting to be delivered. Objective - Vital Signs/Intake and Output Vital Signs (last 24 hours): Temp Pulse Resp BP Pulse Ox 97.9 F 73 23 111/72 97 11/22/18 00:00 11/22/18 00:00 11/22/18 00:00 11/22/18 00:00 11/22/18 00:00 Intake and Output: 11/22/18 11/22/18 06:59 18:59 Intake Total 650 Output Total 580 Balance 70 - Medications Medications: Current Medications Albuterol/Ipratropium (Duoneb 3 Mg/0.5 Mg (3 Ml) Ud) 3 ml INH RQ4 [facility] Last Admin: 11/22/18 03:30 Dose: 3 ml Ascorbic Acid (Vitamin C 500 Mg Tab) 1,000 mg NG DAILY [facility] Last Admin: 11/21/18 10:00 Dose: 1,000 mg Aspirin (Aspirin Chewable) 81 mg GT DAILY [facility] Last Admin: 11/14/18 11:00 Dose: 81 mg Dextrose (Dextrose 50% Inj) 0 ml IVP .STAT PRN; Protocol PRN Reason: Hypoglycemia Protocol Dextrose (Glutose 15) 0 gm PO .ONCE PRN; Protocol PRN Reason: Hypoglycemia Protocol Emollient Ointment (Vaseline Oint) 5 gm TOP DAILY [facility] Last Admin: 11/21/18 10:04 Dose: 5 gm Glucagon (Glucagen Diagnostic Kit) 0 mg IM .STAT PRN; Protocol PRN Reason: Hypoglycemia Protocol Cefepime HCl 1 gm/ Dextrose 50 mls @ 100 mls/hr IVPB Q12H [facility]; Protocol Last Admin: 11/21/18 21:52 Dose: 100 mls/hr Linezolid (Zyvox 600mg/300ml D5w) 600 mg in 300 mls @ 200 mls/hr IVPB Q12H [facility]; Protocol Last Admin: 11/22/18 05:44 Dose: 200 mls/hr Lactobacillus Acidophilus (Lactobacillus) 1 cap PO BID REPLACED BY [facility] Last Admin: 11/21/18 18:01 Dose: 1 cap Methimazole (Tapazole) 10 mg PO Q8 REPLACED BY [facility] Last Admin: 11/22/18 05:01 Dose: 10 mg Midodrine (Proamatine) 10 mg PO TID REPLACED BY [facility] Last Admin: 11/21/18 18:02 Dose: 10 mg Modafinil (Provigil) 50 mg PO DAILY REPLACED BY [facility] Last Admin: 11/21/18 10:00 Dose: 50 mg Multivitamins (Hexavitamin) 1 tab PEG DAILY REPLACED BY [facility] Last Admin: 11/21/18 10:03 Dose: 1 tab Pantoprazole Sodium (Protonix Susp) 40 mg GT Q12H REPLACED BY [facility] Last Admin: 11/21/18 21:51 Dose: 40 mg Simethicone (Mylicon Chew Tab) 80 mg PO QID REPLACED BY [facility] Last Admin: 11/21/18 21:55 Dose: 80 mg Sodium Bicarbonate (Sodium Bicarbonate Tab) 650 mg PO BID REPLACED BY [facility] Last Admin: 11/21/18 18:01 Dose: 650 mg Tamsulosin HCl (Flomax) 0.4 mg PEG DAILY REPLACED BY [facility] Last Admin: 11/21/18 10:03 Dose: 0.4 mg - Labs Labs: 11/20/18 13:50 11/20/18 13:50 PT 13.3 SECONDS (9.7-12.2) H 10/23/18 06:05 INR 1.2 10/23/18 06:05 APTT 23 SECONDS (21-34) 10/02/18 06:10 - Additional Findings Additional findings: - Constitutional Appears: Chronically Ill - Head Exam Head Exam: ATRAUMATIC, NORMAL INSPECTION, NORMOCEPHALIC - Eye Exam Eye Exam: Nystagmus, Scleral icterus - ENT Exam ENT Exam: Mucous Membranes Dry - Neck Exam Additional comments: trach with vent in place; C/D/I; no active bleeding or purulent discarge - Respiratory Exam Respiratory Exam: NORMAL BREATHING PATTERN Additional comments: increased secretions, ronchi bilaterally. - Cardiovascular Exam Cardiovascular Exam: REGULAR RHYTHM, +S1, +S2 - GI/Abdominal Exam GI & Abdominal Exam: Soft, Normal Bowel Sounds. absent: Distended, Firm, Guarding, Tenderness, Rebound Additional comments: noted PEG tube in place w dressing c/d/i; no signs of infection or bleeding, running @ 50/hr no residuals per nursing - Exam Additional comments: mcintyre in place - Extremities Exam Extremities Exam: Normal Inspection. absent: Calf Tenderness Additional comments: dependant edema, left worse than right - Neurological Exam Neurological Exam: absent: Alert, Oriented x3 - Skin Skin Exam: Dry, Intact, Normal Color Additional comments: [address] outputting fluid R 0cc L 0cc last 24hrs Assessment and Plan - Assessment and Plan (Free Text) Assessment: This is a 52 yo female originally admitted to the ICU for septic shock 2/ to PNA/UTI worsened by cardiac arrest and anoxic brain injury. Patient found to have apical thrombus in heart. Patient is s/p trach and PEG. Patient still unable to be weaned off vent. She has had multiple complications, including DVT and infections (PNA, UTI). s/p IVC filter 08/23. s/p multiple chest tube placements Sep 19-Oct 21. s/p LP 09/15. Patient has shown minimal improvement of cognitive function during the course of this hospitalization. Patient does not have any insurance and therefore cannot be placed in rehab/NH. Multiple conversations with regarding poor prognosis- he wishes to keep her full code. Palliative and pastoral care have been on board. Plan: Altered mental status/Encephalopathy- suspect anoxic encephalopathy -Code Blue 07/10 and 07/20 -Moved to [facility] floor 11/08 -Chest tubes x2 in place -Off sedation -Modafinil 50 mg PO daily -CT head (08/28/18): No hemorrhage or midline shift -MRI brain (09/08/18): No definite mass effect or suspicious extra axial collection. No evidence of acute or subacute brain infarction at this time. Borderline pattern of hydrocephalus. -LP 09/15/18: normal opening pressure - LDH 30, glucose 69, tot prot 67 - CSF Cx: no growth - Other CSF studies pending- called lab 11/01, they will contact [facility] for update -Neurology consulted (George/Ankit) Acute respiratory failure- s/p trach on vent, unable to wean - Tracheostomy 07/24/18, s/p bronchoscopy 08/23 - Patient had tolerated trach collars in early Aug 2018; however she has been on vent to trach since. Fi02: 40% - Bronchoscopy (08/23/18) by Dr. Lozada - Bronchial washings: Pseudomonas Aeruginosa - Fungal Cx: negative - Mycobacterial Cx: negative - Chest physiotherapy increased secretions, but pt is being suctioned by RN regularly - Most recent CT chest (10/27/18): Large bilateral pleural effusions and associated consolidations. Trace pericardial effusion. Borderline cardiomegaly. Enlarged heterogeneous partially imaged thyroid gland. - Monitor CO2 - ABG on FiO2 40 (11/02/18): pH 7.34, pCO2 29, pO2 106 - Start Sodium bicarb 650 mg PEG BID - Pulmonary consulted (Neville) Anemia 2/2 to Chronic Diseases +/- Dysfunctional uterine bleeding, stable -Hg 9.8 -Stool occult blood negative -Iron normal, TIBC low, Iron saturation normal, Ferritin normal -B12, folate normal -Vaginal US: thickened endometrium -Transfused pRBC: 1 unit 07/22/18, 2 units 08/13/18, 1 unit 08/17/18, 1 unit 08/23/18, 2 unit 11/15/18 -OBGYN consulted (Gilberto)- no hysterectomy -During transfusion pt went hypotensive 77/41, PRBC adm rate increased from 120 to 150, 1L NS bolus w/ albumin IVPB on other arm -BP 109/80 VRE UTI - afebrile overnight - gram pos cocci in UC, possible contamination - repeat UC - cefepime IVPB - UCx shows VRE Zyvox added Sacral Decubitus Ulcer - Wound care consulted, f/u recs - recommending repositioning q2hrs - new specialty mattress ordered - [facility] w/ optiforam - feeds increased for greater protein intake Upper Extremity swelling bilateral - f/u upper ext dopplers : neg - holding anticoags due to vaginal bleeding - Mid Line in place, PICC pending BCs Distended abdomen -Resolving, pt had BM -AXR (10/28/18): Nonspecific bowel gas pattern with relative paucity of bowel gas. -Repeat AXR (11/02/18): Normal bowel gas pattern. -PEG tube feeds goal rate 40:Pulmocare -Reglan discontinued due to interaction with zyvox -Miralax PEG BID -Simethicone 80 mg PEG QID Pleural effusions- s/p bilateral chest tubes - Multiple chest tubes and thoracenteses for effusions, most recent s/p bilate ral chest tubes 10/27 - Pleural fluid from 10/13/18 - WBC 794, RBC 2083, tot cells 100, neutrophils 87% - Tot prot<3, LDH 145, glucose 146 - CT chest (10/27/18): Placment of 8.5 Portuguese pigtail drainage catheter within right and left pleural space - Most recent CXR (10/31/18): Status post bilateral chest tube placements. Marked reduction of bilateral pleural effusions, commensurate re-expansion of b oth lungs. - Repeat CXR 11/02: Worsening pulmonary edema - IR consulted (Partha) - Pulmonology consulted (Neville) Thyroid disorder - Thyroid US (07/16/18): Heterogeneous thyroid echotexture. Numerous nodules as described above. Suggest percutaneous biopsy of the following suspicious nodules; 1.8 x 0.9 x 1.7 cm right lower pole nodule, 1.0 x 0.7 x 0.9 cm right upper pole lesion with intracystic vascular nodule, complex left upper pole nodule measuring 2.1 x 1.5 x 1.8 cm. - Note: Initial thyroid studies taken before amiodarone was given- this is NOT amiodarone induced - TSH <0.02 in 07/2018, 10/31/18 TSH 18.10 - Free T4 >3 in 07/2018, 10/31/2018 free T4 0.24 - wnl TSH, free T4 on 11/08/18 - Methimazole to 10 mg PO Q8H - Off Propranolol 5 mg PO TID due to hypotension - Endocrinology consulted (Irwin) Hypotension -improved, stable -emains stable in 100s-120s/50s-60s - Monitor albumin, administer PRN doses -Midodrine 10 mg PEG TID Atrial fibrillation w/ RVR, resolved -EKG (10/29/18): Afib HR 130 -Cardiology consulted (Nolan) Deconditioning -Patient needs aggressive continued PT/OT- PT signed off as patient does not follow directions -Nursing and move patient OOB to chair -Social work note (08/09/18): patient is undocumented, has not health insurance, discharge planning will be at home with Septic Shock 2/2 Pneumonia and Urinary Tract Infection (VRE and Pseudomonas)- urinary retention -Off pressors (previously on 3) -Mild leukocytosis (12.4) -Afebrile since 10/21/18 -Procal 1.49 on 11/01/18, 0.66 on 10/21/18 -CXR (11/02/18): worsening pulmonary edema -Most recent blood cultures negative -Most recent urine cultures (10/21/18) +VRE/Pseudomonas, suspect patient likely colonized -Mcintyre in place -Midline removed 11/01/18 -PICC team unable to insert PICC line 11/13/18 -Flomax 0.4 mg PEG daily -Cefepime 1 g Q12H- started 10/27 -ID consulted (Vinod) -neg bc -0.93 procal Apical thrombus -Echo (07/07/18) before cardiac arrest: EF 40-45% -Echo (07/10/19) after cardiac arrest: EF 40%, LV large apical hypokinesis, large 30x20 mm soft tissue apical sessile mass suggestive of thrombus -Echo (08/17/19): LV clot, no significant change -Too high risk for HUBERT -Previously on heparin gtt, Eliquis- stopped due to anemia and vaginal bleeding -ASA 81 mg PEG daily LLE Deep vein thrombosis s/p IVC filter -Venous Doppler (07/18/18): Acute thrombosis of the left common femoral and femoral veins with severe reduction of the venous return -Resolved on repeat imaging -Previously on heparin gtt, Eliquis- stopped due to anemia and vaginal bleeding -s/p IVC filter on 08/23/18 -Vasc surgery consulted (Vicky) T2DM -A1c: 7.8 -Hypoglycemia protocol -Accuchecks Q6H Vtach- Code blue x2 (07/10/18) - Previously on amiodarone ggt - Cardiology consulted (Nolan) NEHA, resolved - Required dialysis early in admission before code blues - Monitor BUN, Cr Shock liver, resolved -Hepatitis panel negative -HIV negative -Monitor LFTs PPx, Diet, Disposition -DVT ppx: scds -GI ppx: protonix 40 via PEG q12 -Tube feeds -Pulmocare goal rate 50 mL/hr- feeds restarted 2/2 -Lactobacillus 1 cap PEG Q12H -Multivitamin PEG daily -Vitamin C 1,000 PEG daily -Vitamin A&E <[place] - Last Filed: 11/22/18 19:08> Objective - Vital Signs/Intake and Output Vital Signs (last 24 hours): Temp Pulse Resp BP Pulse Ox 98.2 F 84 20 122/71 100 11/22/18 15:07 11/22/18 15:07 11/22/18 15:07 11/22/18 15:07 11/22/18 15:07 Intake and Output: 11/22/18 11/23/18 18:59 06:59 Intake Total 950 Output Total 610 Balance 340 - Medications Medications: Current Medications Albuterol/Ipratropium (Duoneb 3 Mg/0.5 Mg (3 Ml) Ud) 3 ml INH RQ4 REPLACED BY [facility] Last Admin: 11/22/18 15:56 Dose: 3 ml Ascorbic Acid (Vitamin C 500 Mg Tab) 1,000 mg NG DAILY REPLACED BY [facility] Last Admin: 11/22/18 09:20 Dose: 1,000 mg Aspirin (Aspirin Chewable) 81 mg GT DAILY REPLACED BY [facility] Last Admin: 11/14/18 11:00 Dose: 81 mg Dextrose (Dextrose 50% Inj) 0 ml IVP .STAT PRN; Protocol PRN Reason: Hypoglycemia Protocol Dextrose (Glutose 15) 0 gm PO .ONCE PRN; Protocol PRN Reason: Hypoglycemia Protocol Emollient Ointment (Vaseline Oint) 5 gm TOP DAILY REPLACED BY [facility] Last Admin: 11/22/18 09:21 Dose: 5 gm Glucagon (Glucagen Diagnostic Kit) 0 mg IM .STAT PRN; Protocol PRN Reason: Hypoglycemia Protocol Cefepime HCl 1 gm/ Dextrose 50 mls @ 100 mls/hr IVPB Q12H REPLACED BY [facility]; Protocol Last Admin: 11/22/18 08:39 Dose: 100 mls/hr Linezolid (Zyvox 600mg/300ml D5w) 600 mg in 300 mls @ 200 mls/hr IVPB Q12H [facility]; Protocol Last Admin: 11/22/18 17:57 Dose: 200 mls/hr Lactobacillus Acidophilus (Lactobacillus) 1 cap PO BID REPLACED BY [facility] Last Admin: 11/22/18 17:56 Dose: 1 cap Methimazole (Tapazole) 10 mg PO Q8 REPLACED BY [facility] Last Admin: 11/22/18 13:09 Dose: 10 mg Midodrine (Proamatine) 10 mg PO TID REPLACED BY [facility] Last Admin: 11/22/18 17:57 Dose: 10 mg Modafinil (Provigil) 50 mg PO DAILY REPLACED BY [facility] Last Admin: 11/22/18 09:20 Dose: 50 mg Multivitamins (Hexavitamin) 1 tab PEG DAILY REPLACED BY [facility] Last Admin: 11/22/18 09:21 Dose: 1 tab Pantoprazole Sodium (Protonix Susp) 40 mg GT Q12H REPLACED BY [facility] Last Admin: 11/22/18 09:20 Dose: 40 mg Simethicone (Mylicon Chew Tab) 80 mg PO QID [facility] Last Admin: 11/22/18 17:57 Dose: 80 mg Sodium Bicarbonate (Sodium Bicarbonate Tab) 650 mg PO BID [facility] Last Admin: 11/22/18 17:57 Dose: 650 mg Tamsulosin HCl (Flomax) 0.4 mg PEG DAILY REPLACED BY [facility] Last Admin: 11/22/18 09:20 Dose: 0.4 mg - Labs Labs: 11/22/18 11:38 11/22/18 11:38 PT 13.3 SECONDS (9.7-12.2) H 10/23/18 06:05 INR 1.2 10/23/18 06:05 APTT 23 SECONDS (21-34) 10/02/18 06:10 Attending/Attestation - Attestation I have personally seen and examined this patient.: Yes I have fully participated in the care of the patient.: Yes I have reviewed all pertinent clinical information, including history, physical exam and plan: Yes Notes (Text): 11/22/18 19:03 Patient was seen and examined at 3 PM with the help of Nurse Flores Care of this patient was gone over in detail with resident Dr. Villegas. Patient was having bowel movement at the time of my examination of her sacrum and buttocks Also on Exam: Unstable ulceration in the Sacrum as well as surrounding the superior aspect of the Anus With the help of Nurse Sandra, I applied medihoney to the sacral, anal area ulcer and covered with optifoam dressing Expressed the need for continued repositioning of the patient to Nurse Flores. Left Chest Tube Output from 7 AM to 3 PM: 0.0 ml Right Chest Tube Output from 7 AM to 3 PM: 10 ml Medicine Team will again speak with Palliative Care Nurse Leeroy and reach out to Complaint Investigator Sue on 11/23/18 to see about arranging another meeting with as we do not see there to be any chance of improvement for patient condition and in light of developed unstageable ulcer, likely worsening of her medical condition. [place] D.O.
[2018-11-22] MEDS: Pantoprazole 40 mg Susp UD GT SCH ×2 (09:20→21:46)
[2018-11-22] MEDS: Lactobacillus Acidophilus 500 MU Cap PO SCH ×2 (09:20→17:56)
[2018-11-22] MEDS: Modafinil 50 MG TAB PO SCH (09:20)
[2018-11-22] MEDS: Simethicone 80 mg Chewtab PO SCH ×4 (09:21→21:45)
[2018-11-22] MEDS: Multiple Vitamins Tab PEG SCH (09:21)
[2018-11-22] MEDS: Petrolatum Oint Foilpak (5 gm) TOP SCH (09:21)
[2018-11-22 11:48] LABS: BASO % 0.6 % (0.0-2.0); EOS # 0.6 K/uL (0.0-0.7); EOS % 6.9 % (0.0-4.0); HEMOGLOBIN 9.8 g/dL (11.0-16.0); LYMPH # 0.8 K/uL (1.0-4.3); LYMPH % 8.5 % (20.0-40.0); MEAN CELL VOLUME 88.7 fL (81.0-99.0); MEAN CORPUSCULAR HEMOGLOBIN 29.5 pg (27.0-31.0); MEAN CORPUSCULAR HGB CONC 33.2 g/dL (33.0-37.0); MEAN PLATELET VOLUME 8.2 fL (7.2-11.7); MONO # 0.6 K/uL (0.0-0.8); MONO % 6.8 % (0.0-10.0); NEUT # 6.9 K/uL (1.8-7.0); NEUT % 77.2 % (50.0-75.0); PLATELET COUNT 271 K/uL (130-400); RBC 3.32 Mil/uL (3.80-5.20); RED CELL DISTRIBUTION WIDTH 17.6 % (11.5-14.5); WHITE BLOOD COUNT 8.9 K/uL (4.8-10.8)
[2018-11-22 12:01] LABS: ALB/GLOB RATIO 0.8 (1.0-2.1); ALBUMIN 2.3 g/dL (3.5-5.0); CALCIUM 7.8 mg/dl (8.6-10.4)
[2018-11-22 12:31] LABS: ANISOCYTOSIS SLIGHT; BANDS 1 % (0-2); EOSINOPHIL 9 % (0-4); LYMPHOCYTE 10 % (20-40); MONOCYTE 5 % (0-10); NEUTROPHIL 75 % (50-75); PLATELET ESTIMATE NORMAL (NORMAL); TOTAL CELLS COUNTED 100
--- NOTE | 2018-11-22 13:30 | CP.PCM.PN ---
Subjective - Date & Time of Evaluation Date of Evaluation: 11/22/18 Time of Evaluation: 06:00 - Subjective Subjective: appears same iv rx renewed Objective - Vital Signs/Intake and Output Vital Signs (last 24 hours): Temp Pulse Resp BP Pulse Ox 98.7 F 75 20 103/65 100 11/22/18 08:00 11/22/18 08:00 11/22/18 08:00 11/22/18 08:00 11/22/18 08:00 Intake and Output: 11/22/18 11/22/18 06:59 18:59 Intake Total 650 Output Total 580 Balance 70 - Medications Medications: Current Medications Albuterol/Ipratropium (Duoneb 3 Mg/0.5 Mg (3 Ml) Ud) 3 ml INH RQ4 [facility] Last Admin: 11/22/18 11:55 Dose: 3 ml Ascorbic Acid (Vitamin C 500 Mg Tab) 1,000 mg NG DAILY [facility] Last Admin: 11/22/18 09:20 Dose: 1,000 mg Aspirin (Aspirin Chewable) 81 mg GT DAILY [facility] Last Admin: 11/14/18 11:00 Dose: 81 mg Dextrose (Dextrose 50% Inj) 0 ml IVP .STAT PRN; Protocol PRN Reason: Hypoglycemia Protocol Dextrose (Glutose 15) 0 gm PO .ONCE PRN; Protocol PRN Reason: Hypoglycemia Protocol Emollient Ointment (Vaseline Oint) 5 gm TOP DAILY [facility] Last Admin: 11/22/18 09:21 Dose: 5 gm Glucagon (Glucagen Diagnostic Kit) 0 mg IM .STAT PRN; Protocol PRN Reason: Hypoglycemia Protocol Cefepime HCl 1 gm/ Dextrose 50 mls @ 100 mls/hr IVPB Q12H [facility]; Protocol Last Admin: 11/22/18 08:39 Dose: 100 mls/hr Linezolid (Zyvox 600mg/300ml D5w) 600 mg in 300 mls @ 200 mls/hr IVPB Q12H [facility]; Protocol Last Admin: 11/22/18 05:44 Dose: 200 mls/hr Lactobacillus Acidophilus (Lactobacillus) 1 cap PO BID [facility] Last Admin: 11/22/18 09:20 Dose: 1 cap Methimazole (Tapazole) 10 mg PO Q8 [facility] Last Admin: 11/22/18 13:09 Dose: 10 mg Midodrine (Proamatine) 10 mg PO TID [facility] Last Admin: 11/22/18 13:09 Dose: 10 mg Modafinil (Provigil) 50 mg PO DAILY [facility] Last Admin: 11/22/18 09:20 Dose: 50 mg Multivitamins (Hexavitamin) 1 tab PEG DAILY [facility] Last Admin: 11/22/18 09:21 Dose: 1 tab Pantoprazole Sodium (Protonix Susp) 40 mg GT Q12H [facility] Last Admin: 11/22/18 09:20 Dose: 40 mg Simethicone (Mylicon Chew Tab) 80 mg PO QID [facility] Last Admin: 11/22/18 13:09 Dose: 80 mg Sodium Bicarbonate (Sodium Bicarbonate Tab) 650 mg PO BID [facility] Last Admin: 11/22/18 09:20 Dose: 650 mg Tamsulosin HCl (Flomax) 0.4 mg PEG DAILY [facility] Last Admin: 11/22/18 09:20 Dose: 0.4 mg - Labs Labs: 11/22/18 11:38 11/22/18 11:38 PT 13.3 SECONDS (9.7-12.2) H 10/23/18 06:05 INR 1.2 10/23/18 06:05 APTT 23 SECONDS (21-34) 10/02/18 06:10 - Constitutional Appears: Non-toxic, Chronically Ill - Head Exam Head Exam: NORMOCEPHALIC - Eye Exam Eye Exam: absent: Scleral icterus - ENT Exam ENT Exam: Mucous Membranes Dry - Neck Exam Neck Exam: absent: Lymphadenopathy - Respiratory Exam Respiratory Exam: Decreased Breath Sounds - Cardiovascular Exam Cardiovascular Exam: REGULAR RHYTHM - GI/Abdominal Exam GI & Abdominal Exam: Distended - Rectal Exam Rectal Exam: Deferred - Exam Exam: NORMAL INSPECTION - Extremities Exam Extremities Exam: absent: Pedal Edema - Back Exam Back Exam: absent: CVA tenderness (L), CVA tenderness (R) - Neurological Exam Neurological Exam: Altered Assessment and Plan (1) NEHA (acute kidney injury) Status: Acute (2) Acute renal failure Status: Acute (3) Acute respiratory failure Status: Acute (4) Aspiration pneumonia Status: Acute (5) Septic shock Status: Acute (6) Urinary tract infection Status: Acute (7) Diabetes mellitus Status: Chronic (8) Anoxic brain damage Status: Acute
[2018-11-23] MEDS: Albuterol-Ipratrop 3 mg / 0.5 (3 ml) UD INH SCH ×6 (00:20→19:55)
[2018-11-23] MEDS: Linezolid 600 mg in D5W 300 ml 600 MG/300 ML BAG IVPB SCH ×2 (05:47→17:31)
--- NOTE | 2018-11-23 07:38 | CP.PCM.PN ---
<Bhanu Villegas - Last Filed: 11/23/18 17:34> Subjective - Date & Time of Evaluation Date of Evaluation: 11/23/18 Time of Evaluation: 07:38 - Subjective Subjective: HOSPITALIST SERVICE Pt s/e at bedside, no acute events endorsed by nursing overnight, pt sacral ulcer was cleaned and is being monitored by wound care, per no acute complaints. Objective - Vital Signs/Intake and Output Vital Signs (last 24 hours): Temp Pulse Resp BP Pulse Ox 99.2 F 67 19 107/71 100 11/23/18 00:00 11/23/18 00:00 11/23/18 00:00 11/23/18 00:00 11/23/18 00:00 Intake and Output: 11/23/18 11/23/18 06:59 18:59 Intake Total 1850 Output Total 1420 Balance 430 - Medications Medications: Current Medications Albuterol/Ipratropium (Duoneb 3 Mg/0.5 Mg (3 Ml) Ud) 3 ml INH RQ4 [facility] Last Admin: 11/23/18 04:15 Dose: 3 ml Ascorbic Acid (Vitamin C 500 Mg Tab) 1,000 mg NG DAILY [facility] Last Admin: 11/22/18 09:20 Dose: 1,000 mg Aspirin (Aspirin Chewable) 81 mg GT DAILY [facility] Last Admin: 11/14/18 11:00 Dose: 81 mg Dextrose (Dextrose 50% Inj) 0 ml IVP .STAT PRN; Protocol PRN Reason: Hypoglycemia Protocol Dextrose (Glutose 15) 0 gm PO .ONCE PRN; Protocol PRN Reason: Hypoglycemia Protocol Emollient Ointment (Vaseline Oint) 5 gm TOP DAILY [facility] Last Admin: 11/22/18 09:21 Dose: 5 gm Glucagon (Glucagen Diagnostic Kit) 0 mg IM .STAT PRN; Protocol PRN Reason: Hypoglycemia Protocol Cefepime HCl 1 gm/ Dextrose 50 mls @ 100 mls/hr IVPB Q12H [facility]; Protocol Last Admin: 11/22/18 21:45 Dose: 100 mls/hr Linezolid (Zyvox 600mg/300ml D5w) 600 mg in 300 mls @ 200 mls/hr IVPB Q12H [facility]; Protocol Last Admin: 11/23/18 05:47 Dose: 200 mls/hr Lactobacillus Acidophilus (Lactobacillus) 1 cap PO BID [facility] Last Admin: 11/22/18 17:56 Dose: 1 cap Methimazole (Tapazole) 10 mg PO Q8 [facility] Last Admin: 11/23/18 05:15 Dose: 10 mg Midodrine (Proamatine) 10 mg PO TID [facility] Last Admin: 11/22/18 17:57 Dose: 10 mg Modafinil (Provigil) 50 mg PO DAILY [facility] Last Admin: 11/22/18 09:20 Dose: 50 mg Multivitamins (Hexavitamin) 1 tab PEG DAILY [facility] Last Admin: 11/22/18 09:21 Dose: 1 tab Pantoprazole Sodium (Protonix Susp) 40 mg GT Q12H [facility] Last Admin: 11/22/18 21:46 Dose: 40 mg Simethicone (Mylicon Chew Tab) 80 mg PO QID [facility] Last Admin: 11/22/18 21:45 Dose: 80 mg Sodium Bicarbonate (Sodium Bicarbonate Tab) 650 mg PO BID [facility] Last Admin: 11/22/18 17:57 Dose: 650 mg Tamsulosin HCl (Flomax) 0.4 mg PEG DAILY [facility] Last Admin: 11/22/18 09:20 Dose: 0.4 mg - Labs Labs: 11/22/18 11:38 11/22/18 11:38 PT 13.3 SECONDS (9.7-12.2) H 10/23/18 06:05 INR 1.2 10/23/18 06:05 APTT 23 SECONDS (21-34) 10/02/18 06:10 - Additional Findings Additional findings: - Constitutional Appears: Chronically Ill - Head Exam Head Exam: ATRAUMATIC, NORMAL INSPECTION, NORMOCEPHALIC - Eye Exam Eye Exam: Nystagmus, Scleral icterus - ENT Exam ENT Exam: Mucous Membranes Dry - Neck Exam Additional comments: trach with vent in place; C/D/I; no active bleeding or purulent discarge - Respiratory Exam Respiratory Exam: NORMAL BREATHING PATTERN Additional comments: increased secretions, ronchi bilaterally. - Cardiovascular Exam Cardiovascular Exam: REGULAR RHYTHM, +S1, +S2 - GI/Abdominal Exam GI & Abdominal Exam: Soft, Normal Bowel Sounds. absent: Distended, Firm, Guarding, Tenderness, Rebound Additional comments: noted PEG tube in place w dressing c/d/i; no signs of infection or bleeding, running @ 50/hr no residuals per nursing - Exam Additional comments: mcintyre in place - Extremities Exam Extremities Exam: Normal Inspection. absent: Calf Tenderness Additional comments: dependant edema, left worse than right - Neurological Exam Neurological Exam: absent: Alert, Oriented x3 - Skin Skin Exam: Dry, Intact, Normal Color Additional comments: [address] outputting fluid R 0cc L 0cc last 24hrs Assessment and Plan - Assessment and Plan (Free Text) Assessment: This is a 52 yo female originally admitted to the ICU for septic shock 2/2 to PNA/UTI worsened by cardiac arrest and anoxic brain injury. Patient found to have apical thrombus in heart. Patient is s/p trach and PEG. Patient still unable to be weaned off vent. She has had multiple complications, including DVT and infections (PNA, UTI). s/p IVC filter 08/23. s/p multiple chest tube placements Sep 19-Oct 21. s/p LP 09/15. Patient has shown minimal improvement of cognitive function during the course of this hospitalization. Patient does not have any insurance and therefore cannot be placed in rehab/NH. Multiple conversations with regarding poor prognosis- he wishes to keep her full code. Palliative and pastoral care have been on board. Plan: Altered mental status/Encephalopathy- suspect anoxic encephalopathy -Code Blue 07/10 and 07/20 -Moved to med surg floor 11/08 -Chest tubes x2 in place -Off sedation -Modafinil 50 mg PO daily -CT head (08/28/18): No hemorrhage or midline shift -MRI brain (09/08/18): No definite mass effect or suspicious extra axial collec tion. No evidence of acute or subacute brain infarction at this time. Borderline pattern of hydrocephalus. -LP 09/15/18: normal opening pressure - LDH 30, glucose 69, tot prot 67 - CSF Cx: no growth - Other CSF studies pending- called lab 11/01, they will contact [facility] for update -Neurology consulted (George/Ankit) Acute respiratory failure- s/p trach on vent, unable to wean - Tracheostomy 07/24/18, s/p bronchoscopy 08/23 - Patient had tolerated trach collars in early Aug 2018; however she has been on vent to trach since. Fi02: 40% - Bronchoscopy (08/23/18) by Dr. Lozada - Bronchial washings: Pseudomonas Aeruginosa - Fungal Cx: negative - Mycobacterial Cx: negative - Chest physiotherapy increased secretions, but pt is being suctioned by RN regularly - Most recent CT chest (10/27/18): Large bilateral pleural effusions and associated consolidations. Trace pericardial effusion. Borderline cardiomegaly. Enlarged heterogeneous partially imaged thyroid gland. - Monitor CO2 - ABG on FiO2 40 (11/02/18): pH 7.34, pCO2 29, pO2 106 - Start Sodium bicarb 650 mg PEG BID - Pulmonary consulted (Neville) - Pain Mgmt Consutled: Dr Clayton 5mg Ketamine IVP before changes, will have trial tmrw Anemia 2/2 to Chronic Diseases +/- Dysfunctional uterine bleeding, stable -Hg 9.8 -Stool occult blood negative -Iron normal, TIBC low, Iron saturation normal, Ferritin normal -B12, folate normal -Vaginal US: thickened endometrium -Transfused pRBC: 1 unit 07/22/18, 2 units 08/13/18, 1 unit 08/17/18, 1 unit 08/23/18, 2 unit 11/15/18 -OBGYN consulted (Gilberto)- no hysterectomy -During transfusion pt went hypotensive 77/41, PRBC adm rate increased from 120 to 150, 1L NS bolus w/ albumin IVPB on other arm -BP 109/80 VRE UTI - afebrile overnight - gram pos cocci in UC, possible contamination - repeat UC - cefepime IVPB - UCx shows VRE Zyvox added Sacral Decubitus Ulcer - Wound care consulted, f/u recs extension to anus: this will require frequent cleaning - recommending repositioning q2hrs - new specialty mattress ordered - [facility] w/ [facility]iforam - feeds increased for greater protein intake Upper Extremity swelling bilateral - f/u upper ext dopplers : neg - holding anticoags due to vaginal bleeding - Mid Line in place, PICC pending BCs Distended abdomen -Resolving, pt had BM -AXR (10/28/18): Nonspecific bowel gas pattern with relative paucity of bowel gas. -Repeat AXR (11/02/18): Normal bowel gas pattern. -PEG tube feeds goal rate 40:[facility]mocare -Reglan discontinued due to interaction with zyvox -Miralax PEG BID -Simethicone 80 mg PEG QID Pleural effusions- s/p bilateral chest tubes - Multiple chest tubes and thoracenteses for effusions, most recent s/p bilateral chest tubes 10/27 - Pleural fluid from 10/13/18 - WBC 794, RBC 2083, tot cells 100, neutrophils 87% - Tot prot<3, LDH 145, glucose 146 - CT chest (10/27/18): Placment of 8.5 Malay pigtail drainage catheter within right and left pleural space - Most recent CXR (10/31/18): Status post bilateral chest tube placements. Marked reduction of bilateral pleural effusions, commensurate re-expansion of both lungs. - Repeat CXR 11/02: Worsening pulmonary edema - IR consulted (Partha) - Pulmonology consulted (Neville) Thyroid disorder - Thyroid US (07/16/18): Heterogeneous thyroid echotexture. Numerous nodules as described above. Suggest percutaneous biopsy of the following suspicious nodules; 1.8 x 0.9 x 1.7 cm right lower pole nodule, 1.0 x 0.7 x 0.9 cm right upper pole lesion with intracystic vascular nodule, complex left upper pole nodule measuring 2.1 x 1.5 x 1.8 cm. - Note: Initial thyroid studies taken before amiodarone was given- this is NOT amiodarone induced - TSH <0.02 in 07/2018, 10/31/18 TSH 18.10 - Free T4 >3 in 07/2018, 10/31/2018 free T4 0.24 - wnl TSH, free T4 on 11/08/18 - Methimazole to 10 mg PO Q8H - Off Propranolol 5 mg PO TID due to hypotension - Endocrinology consulted (Irwin) Hypotension -improved, stable -emains stable in 100s-120s/50s-60s - Monitor albumin, administer PRN doses -Midodrine 10 mg PEG TID Atrial fibrillation w/ RVR, resolved -EKG (10/29/18): Afib HR 130 -Cardiology consulted (Nolan) Deconditioning -Patient needs aggressive continued PT/OT- PT signed off as patient does not follow directions -Nursing and move patient OOB to chair -Social work note (08/09/18): patient is undocumented, has not health insurance, discharge planning will be at home with Septic Shock 2/2 Pneumonia and Urinary Tract Infection (VRE and Pseudomonas)- urinary retention -Off pressors (previously on 3) -Mild leukocytosis (12.4) -Afebrile since 10/21/18 -Procal 1.49 on 11/01/18, 0.66 on 10/21/18 -CXR (11/02/18): worsening pulmonary edema -Most recent blood cultures negative -Most recent urine cultures (10/21/18) +VRE/Pseudomonas, suspect patient likely colonized -Mcintyre in place -Midline removed 11/01/18 -PICC team unable to insert PICC line 11/13/18 -Flomax 0.4 mg PEG daily -Cefepime 1 g Q12H- started 10/27 -ID consulted (Vinod) -neg bc -0.93 procal Apical thrombus -Echo (07/07/18) before cardiac arrest: EF 40-45% -Echo (07/10/19) after cardiac arrest: EF 40%, LV large apical hypokinesis, large 30x20 mm soft tissue apical sessile mass suggestive of thrombus -Echo (08/17/19): LV clot, no significant change -Too high risk for HUBERT -Previously on heparin gtt, Eliquis- stopped due to anemia and vaginal bleeding -ASA 81 mg PEG daily LLE Deep vein thrombosis s/p IVC filter -Venous Doppler (07/18/18): Acute thrombosis of the left common femoral and femoral veins with severe reduction of the venous return -Resolved on repeat imaging -Previously on heparin gtt, Eliquis- stopped due to anemia and vaginal bleeding -s/p IVC filter on 08/23/18 -Vasc surgery consulted (Vicky) T2DM -A1c: 7.8 -Hypoglycemia protocol -Accuchecks Q6H Vtach- Code blue x2 (07/10/18) - Previously on amiodarone ggt - Cardiology consulted (Nolan) NEHA, resolved - Required dialysis early in admission before code blues - Monitor BUN, Cr Shock liver, resolved -Hepatitis panel negative -HIV negative -Monitor LFTs PPx, Diet, Disposition -DVT ppx: scds -GI ppx: protonix 40 via PEG q12 -Tube feeds -Pulmocare goal rate 50 mL/hr- feeds restarted 11/04 -Lactobacillus 1 cap PEG Q12H -Multivitamin PEG daily -Vitamin C 1,000 PEG daily -Vitamin A&E <[place] - Last Filed: 11/24/18 18:40> Objective - Vital Signs/Intake and Output Vital Signs (last 24 hours): Temp Pulse Resp BP Pulse Ox 98.7 F 93 H 20 101/54 L 100 11/24/18 15:00 11/24/18 15:00 11/24/18 15:00 11/24/18 15:00 11/24/18 15:00 Intake and Output: 11/24/18 11/24/18 06:59 18:59 Intake Total 650 2150 Output Total 380 650 Balance 270 1500 - Medications Medications: Current Medications Ascorbic Acid (Vitamin C 500 Mg Tab) 1,000 mg NG DAILY [facility] Last Admin: 11/24/18 10:00 Dose: 1,000 mg Aspirin (Aspirin Chewable) 81 mg GT DAILY [facility] Last Admin: 11/14/18 11:00 Dose: 81 mg Dextrose (Dextrose 50% Inj) 0 ml IVP .STAT PRN; Protocol PRN Reason: Hypoglycemia Protocol Dextrose (Glutose 15) 0 gm PO .ONCE PRN; Protocol PRN Reason: Hypoglycemia Protocol Emollient Ointment (Vaseline Oint) 5 gm TOP DAILY [facility] Last Admin: 11/24/18 10:00 Dose: 5 gm Glucagon (Glucagen Diagnostic Kit) 0 mg IM .STAT PRN; Protocol PRN Reason: Hypoglycemia Protocol Cefepime HCl 1 gm/ Dextrose 50 mls @ 100 mls/hr IVPB Q12H [facility]; Protocol Last Admin: 11/24/18 08:32 Dose: 100 mls/hr Linezolid (Zyvox 600mg/300ml D5w) 600 mg in 300 mls @ 200 mls/hr IVPB Q12H [facility]; Protocol Last Admin: 11/24/18 17:32 Dose: 200 mls/hr Methimazole (Tapazole) 10 mg PO Q8 [facility] Last Admin: 11/24/18 13:55 Dose: 10 mg Midodrine (Proamatine) 10 mg PO TID [facility] Last Admin: 11/24/18 17:35 Dose: 10 mg Modafinil (Provigil) 50 mg PO DAILY [facility] Last Admin: 11/24/18 10:01 Dose: 50 mg Multivitamins (Hexavitamin) 1 tab PEG DAILY [facility] Last Admin: 11/24/18 10:00 Dose: 1 tab Pantoprazole Sodium (Protonix Susp) 40 mg GT Q12H [facility] Last Admin: 11/24/18 10:00 Dose: 40 mg Simethicone (Mylicon Chew Tab) 80 mg PO QID [facility] Last Admin: 11/24/18 17:35 Dose: 80 mg Sodium Bicarbonate (Sodium Bicarbonate Tab) 650 mg PO BID [facility] Last Admin: 11/24/18 17:35 Dose: 650 mg Tamsulosin HCl (Flomax) 0.4 mg PEG DAILY [facility] Last Admin: 11/24/18 10:01 Dose: 0.4 mg - Labs Labs: 11/24/18 11:20 11/24/18 11:20 PT 13.3 SECONDS (9.7-12.2) H 10/23/18 06:05 INR 1.2 10/23/18 06:05 APTT 23 SECONDS (21-34) 10/02/18 06:10 Attending/Attestation - Attestation I have personally seen and examined this patient.: Yes I have fully participated in the care of the patient.: Yes I have reviewed all pertinent clinical information, including history, physical exam and plan: Yes Notes (Text): This is a late entry. Care of this patient was gone over in detail with resident Dr. Villegas. [place] D.O.
[2018-11-23] MEDS: Multiple Vitamins Tab PEG SCH (09:49)
[2018-11-23] MEDS: Modafinil 50 MG TAB PO SCH (09:49)
[2018-11-23] MEDS: Simethicone 80 mg Chewtab PO SCH ×4 (09:49→21:13)
[2018-11-23] MEDS: Lactobacillus Acidophilus 500 MU Cap PO SCH ×2 (09:50→17:29)
[2018-11-23] MEDS: Pantoprazole 40 mg Susp UD GT SCH ×2 (09:50→21:13)
[2018-11-23] MEDS: Petrolatum Oint Foilpak (5 gm) TOP SCH (09:51)
--- NOTE | 2018-11-23 19:07 | CP.PCM.PN ---
Subjective - Date & Time of Evaluation Date of Evaluation: 11/23/18 Time of Evaluation: 08:00 - Subjective Subjective: afeb on vent via trach chest tubes in place NAD Objective - Vital Signs/Intake and Output Vital Signs (last 24 hours): Temp Pulse Resp BP Pulse Ox 98.5 F 71 13 115/69 100 11/23/18 16:00 11/23/18 16:00 11/23/18 16:00 11/23/18 16:00 11/23/18 16:00 Intake and Output: 11/23/18 11/24/18 18:59 06:59 Intake Total 700 Output Total 250 Balance 450 - Medications Medications: Current Medications Albuterol/Ipratropium (Duoneb 3 Mg/0.5 Mg (3 Ml) Ud) 3 ml INH RQ4 [facility] Last Admin: 11/23/18 16:12 Dose: 3 ml Ascorbic Acid (Vitamin C 500 Mg Tab) 1,000 mg NG DAILY [facility] Last Admin: 11/23/18 09:49 Dose: 1,000 mg Aspirin (Aspirin Chewable) 81 mg GT DAILY [facility] Last Admin: 11/14/18 11:00 Dose: 81 mg Dextrose (Dextrose 50% Inj) 0 ml IVP .STAT PRN; Protocol PRN Reason: Hypoglycemia Protocol Dextrose (Glutose 15) 0 gm PO .ONCE PRN; Protocol PRN Reason: Hypoglycemia Protocol Emollient Ointment (Vaseline Oint) 5 gm TOP DAILY [facility] Last Admin: 11/23/18 09:51 Dose: 5 gm Glucagon (Glucagen Diagnostic Kit) 0 mg IM .STAT PRN; Protocol PRN Reason: Hypoglycemia Protocol Cefepime HCl 1 gm/ Dextrose 50 mls @ 100 mls/hr IVPB Q12H [facility]; Protocol Last Admin: 11/23/18 08:52 Dose: 100 mls/hr Linezolid (Zyvox 600mg/300ml D5w) 600 mg in 300 mls @ 200 mls/hr IVPB Q12H [facility]; Protocol Last Admin: 11/23/18 17:31 Dose: 200 mls/hr Lactobacillus Acidophilus (Lactobacillus) 1 cap PO BID [facility] Last Admin: 11/23/18 17:29 Dose: 1 cap Methimazole (Tapazole) 10 mg PO Q8 [facility] Last Admin: 11/23/18 13:46 Dose: 10 mg Midodrine (Proamatine) 10 mg PO TID [facility] Last Admin: 11/23/18 17:29 Dose: 10 mg Modafinil (Provigil) 50 mg PO DAILY [facility] Last Admin: 11/23/18 09:49 Dose: 50 mg Multivitamins (Hexavitamin) 1 tab PEG DAILY [facility] Last Admin: 11/23/18 09:49 Dose: 1 tab Pantoprazole Sodium (Protonix Susp) 40 mg GT Q12H [facility] Last Admin: 11/23/18 09:50 Dose: 40 mg Simethicone (Mylicon Chew Tab) 80 mg PO QID [facility] Last Admin: 11/23/18 17:30 Dose: 80 mg Sodium Bicarbonate (Sodium Bicarbonate Tab) 650 mg PO BID [facility] Last Admin: 11/23/18 17:29 Dose: 650 mg Tamsulosin HCl (Flomax) 0.4 mg PEG DAILY [facility] Last Admin: 11/23/18 09:50 Dose: 0.4 mg - Labs Labs: 11/22/18 11:38 11/22/18 11:38 PT 13.3 SECONDS (9.7-12.2) H 10/23/18 06:05 INR 1.2 10/23/18 06:05 APTT 23 SECONDS (21-34) 10/02/18 06:10 - Constitutional Appears: Non-toxic, Confused, Cachectic, Chronically Ill - Head Exam Head Exam: NORMOCEPHALIC - Eye Exam Eye Exam: absent: Scleral icterus - ENT Exam ENT Exam: Mucous Membranes Dry - Neck Exam Neck Exam: absent: Lymphadenopathy - Respiratory Exam Respiratory Exam: Decreased Breath Sounds, Rhonchi - Cardiovascular Exam Cardiovascular Exam: REGULAR RHYTHM, +S1, +S2 - GI/Abdominal Exam GI & Abdominal Exam: Distended, Soft - Rectal Exam Rectal Exam: Deferred - Exam Exam: NORMAL INSPECTION - Extremities Exam Extremities Exam: Pedal Edema - Back Exam Back Exam: absent: CVA tenderness (L), CVA tenderness (R) - Neurological Exam Neurological Exam: Altered Assessment and Plan (1) NEHA (acute kidney injury) Status: Acute (2) Acute renal failure Status: Acute (3) Acute respiratory failure Status: Acute (4) Aspiration pneumonia Status: Acute (5) Septic shock Status: Acute (6) Urinary tract infection Status: Acute (7) Diabetes mellitus Status: Chronic (8) Anoxic brain damage Status: Acute - Assessment and Plan (Free Text) Assessment: renew IV rx
[2018-11-24] MEDS: Albuterol-Ipratrop 3 mg / 0.5 (3 ml) UD INH SCH (00:34)
[2018-11-24] MEDS: Linezolid 600 mg in D5W 300 ml 600 MG/300 ML BAG IVPB SCH ×2 (05:34→17:32)
--- NOTE | 2018-11-24 07:11 | CP.PCM.PN ---
<Bhanu Villegas - Last Filed: 11/24/18 16:50> Subjective - Date & Time of Evaluation Date of Evaluation: 11/24/18 Time of Evaluation: 07:10 - Subjective Subjective: HOSPITALIST SERVICE Pt s/e at bedside, PT is now DNR, comfort measures only and iv abx, consider changing q2 lab draws Objective - Vital Signs/Intake and Output Vital Signs (last 24 hours): Temp Pulse Resp BP Pulse Ox 99.3 F 67 20 105/62 100 11/24/18 00:00 11/24/18 00:00 11/24/18 00:00 11/24/18 00:00 11/24/18 00:00 Intake and Output: 11/24/18 11/24/18 06:59 18:59 Intake Total 650 Output Total 380 Balance 270 - Medications Medications: Current Medications Ascorbic Acid (Vitamin C 500 Mg Tab) 1,000 mg NG DAILY [facility] Last Admin: 11/23/18 09:49 Dose: 1,000 mg Aspirin (Aspirin Chewable) 81 mg GT DAILY [facility] Last Admin: 11/14/18 11:00 Dose: 81 mg Dextrose (Dextrose 50% Inj) 0 ml IVP .STAT PRN; Protocol PRN Reason: Hypoglycemia Protocol Dextrose (Glutose 15) 0 gm PO .ONCE PRN; Protocol PRN Reason: Hypoglycemia Protocol Emollient Ointment (Vaseline Oint) 5 gm TOP DAILY [facility] Last Admin: 11/23/18 09:51 Dose: 5 gm Glucagon (Glucagen Diagnostic Kit) 0 mg IM .STAT PRN; Protocol PRN Reason: Hypoglycemia Protocol Cefepime HCl 1 gm/ Dextrose 50 mls @ 100 mls/hr IVPB Q12H [facility]; Protocol Last Admin: 11/23/18 21:13 Dose: 100 mls/hr Linezolid (Zyvox 600mg/300ml D5w) 600 mg in 300 mls @ 200 mls/hr IVPB Q12H [facility]; Protocol Last Admin: 11/24/18 05:34 Dose: 200 mls/hr Lactobacillus Acidophilus (Lactobacillus) 1 cap PO BID [facility] Last Admin: 11/23/18 17:29 Dose: 1 cap Methimazole (Tapazole) 10 mg PO Q8 [facility] Last Admin: 11/24/18 05:37 Dose: 10 mg Midodrine (Proamatine) 10 mg PO TID [facility] Last Admin: 11/23/18 17:29 Dose: 10 mg Modafinil (Provigil) 50 mg PO DAILY [facility] Last Admin: 11/23/18 09:49 Dose: 50 mg Multivitamins (Hexavitamin) 1 tab PEG DAILY [facility] Last Admin: 11/23/18 09:49 Dose: 1 tab Pantoprazole Sodium (Protonix Susp) 40 mg GT Q12H [facility] Last Admin: 11/23/18 21:13 Dose: 40 mg Simethicone (Mylicon Chew Tab) 80 mg PO QID [facility] Last Admin: 11/23/18 21:13 Dose: 80 mg Sodium Bicarbonate (Sodium Bicarbonate Tab) 650 mg PO BID [facility] Last Admin: 11/23/18 17:29 Dose: 650 mg Tamsulosin HCl (Flomax) 0.4 mg PEG DAILY [facility] Last Admin: 11/23/18 09:50 Dose: 0.4 mg - Labs Labs: 11/22/18 11:38 11/22/18 11:38 PT 13.3 SECONDS (9.7-12.2) H 10/23/18 06:05 INR 1.2 10/23/18 06:05 APTT 23 SECONDS (21-34) 10/02/18 06:10 - Additional Findings Additional findings: - Constitutional Appears: Chronically Ill - Head Exam Head Exam: ATRAUMATIC, NORMAL INSPECTION, NORMOCEPHALIC - Eye Exam Eye Exam: Nystagmus, Scleral icterus - ENT Exam ENT Exam: Mucous Membranes Dry - Neck Exam Additional comments: trach with vent in place; C/D/I; no active bleeding or purulent discarge - Respiratory Exam Respiratory Exam: NORMAL BREATHING PATTERN Additional comments: increased secretions, ronchi bilaterally. - Cardiovascular Exam Cardiovascular Exam: REGULAR RHYTHM, +S1, +S2 - GI/Abdominal Exam GI & Abdominal Exam: Soft, Normal Bowel Sounds. absent: Distended, Firm, Guarding, Tenderness, Rebound Additional comments: noted PEG tube in place w dressing c/d/i; no signs of infection or bleeding, running @ 50/hr no residuals per nursing - Exam Additional comments: mcintyre in place - Extremities Exam Extremities Exam: Normal Inspection. absent: Calf Tenderness Additional comments: dependant edema, left worse than right - Neurological Exam Neurological Exam: absent: Alert, Oriented x3 - Skin Skin Exam: Dry, Intact, Normal Color Additional comments: [address] outputting fluid R 0cc L 0cc last 24hrs Assessment and Plan - Assessment and Plan (Free Text) Assessment: DNR now This is a 52 yo female originally admitted to the ICU for septic shock 2/2 to PNA/UTI worsened by cardiac arrest and anoxic brain injury. Patient found to have apical thrombus in heart. Patient is s/p trach and PEG. Patient still unable to be weaned off vent. She has had multiple complications, including DVT and infections (PNA, UTI). s/p IVC filter 08/23. s/p multiple chest tube pl acements Sep 19-Oct 21. s/p LP 09/15. Patient has shown minimal improvement of cognitive function during the course of this hospitalization. Patient does not have any insurance and therefore cannot be placed in rehab/NH. Multiple conversations with regarding poor prognosis- he wishes to keep her full code. Palliative and pastoral care have been on board. Plan: Altered mental status/Encephalopathy- suspect anoxic encephalopathy -Code Blue 07/10 and 07/20 -[facility] -Chest tubes x2 in place -Off sedation -Modafinil 50 mg PO daily -CT head (08/28/18): No hemorrhage or midline shift -MRI brain (09/08/18): No definite mass effect or suspicious extra axial collection. No evidence of acute or subacute brain infarction at this time. Borderline pattern of hydrocephalus. -LP 09/15/18: normal opening pressure - LDH 30, glucose 69, tot prot 67 - CSF Cx: no growth - Other CSF studies pending- called lab 11/01, they will contact [facility] for update -Neurology consulted (George/Ankit) Acute respiratory failure- s/p trach on vent, unable to wean - Tracheostomy 07/24/18, s/p bronchoscopy 08/23 - Patient had tolerated trach collars in early Aug 2018; however she has been on vent to trach since. Fi02: 40% - Bronchoscopy (08/23/18) by Dr. Lozada - Bronchial washings: Pseudomonas Aeruginosa - Fungal Cx: negative - Mycobacterial Cx: negative - Chest physiotherapy increased secretions, but pt is being suctioned by RN regularly - Most recent CT chest (10/27/18): Large bilateral pleural effusions and associated consolidations. Trace pericardial effusion. Borderline cardiomegaly. Enlarged heterogeneous partially imaged thyroid gland. - Monitor CO2 - ABG on FiO2 40 (11/02/18): pH 7.34, pCO2 29, pO2 106 - Start Sodium bicarb 650 mg PEG BID - Pulmonary consulted (Neville) - Pain Mgmt Consutled: Dr Clayton 5mg Ketamine IVP before changes, will have trial tmrw Anemia 2/2 to Chronic Diseases +/- Dysfunctional uterine bleeding, stable -Hg 9.8 -Stool occult blood negative -Iron normal, TIBC low, Iron saturation normal, Ferritin normal -B12, folate normal -Vaginal US: thickened endometrium -Transfused pRBC: 1 unit 07/22/18, 2 units 08/13/18, 1 unit 08/17/18, 1 unit 08/23/18, 2 unit 11/15/18 -OBGYN consulted (Gilberto)- no hysterectomy -During transfusion pt went hypotensive 77/41, PRBC adm rate increased from 120 to 150, 1L NS bolus w/ albumin IVPB on other arm -BP 109/80 VRE UTI - afebrile overnight - gram pos cocci in UC, possible contamination - repeat UC - cefepime IVPB - UCx shows VRE Zyvox added Sacral Decubitus Ulcer - Wound care consulted, f/u recs extension to anus: this will require frequent cleaning - recommending repositioning q2hrs - new specialty mattress ordered - [facility] w/ optiforam - feeds increased for greater protein intake Upper Extremity swelling bilateral - f/u upper ext dopplers : neg - holding anticoags due to vaginal bleeding - Mid Line in place, PICC pending BCs Distended abdomen -Resolving, pt had BM -AXR (10/28/18): Nonspecific bowel gas pattern with relative paucity of bowel gas. -Repeat AXR (11/02/18): Normal bowel gas pattern. -PEG tube feeds goal rate 40:Pulmocare -Reglan discontinued due to interaction with zyvox -Miralax PEG BID -Simethicone 80 mg PEG QID Pleural effusions- s/p bilateral chest tubes - Multiple chest tubes and thoracenteses for effusions, most recent s/p bilateral chest tubes 10/27 - Pleural fluid from 10/13/18 - WBC 794, RBC 2083, tot cells 100, neutrophils 87% - Tot prot<3, LDH 145, glucose 146 - CT chest (10/27/18): Placment of 8.5 [place] pigtail drainage catheter within right and left pleural space - Most recent CXR (10/31/18): Status post bilateral chest tube placements. Marked reduction of bilateral pleural effusions, commensurate re-expansion of both lungs. - Repeat CXR 11/02: Worsening pulmonary edema - IR consulted (Partha) - Pulmonology consulted (Neville) Thyroid disorder - Thyroid US (07/16/18): Heterogeneous thyroid echotexture. Numerous nodules as described above. Suggest percutaneous biopsy of the following suspicious nodules; 1.8 x 0.9 x 1.7 cm right lower pole nodule, 1.0 x 0.7 x 0.9 cm right up per pole lesion with intracystic vascular nodule, complex left upper pole nodule measuring 2.1 x 1.5 x 1.8 cm. - Note: Initial thyroid studies taken before amiodarone was given- this is NOT amiodarone induced - TSH <0.02 in 07/2018, 10/31/18 TSH 18.10 - Free T4 >3 in 07/2018, 10/31/2018 free T4 0.24 - wnl TSH, free T4 on 11/08/18 - Methimazole to 10 mg PO Q8H - Off Propranolol 5 mg PO TID due to hypotension - Endocrinology consulted (Irwin) Hypotension -improved, stable -emains stable in 100s-120s/50s-60s - Monitor albumin, administer PRN doses -Midodrine 10 mg PEG TID Atrial fibrillation w/ RVR, resolved -EKG (10/29/18): Afib HR 130 -Cardiology consulted (Nolan) Deconditioning -Patient needs aggressive continued PT/OT- PT signed off as patient does not follow directions -Nursing and move patient OOB to chair -Social work note (08/09/18): patient is undocumented, has not health insurance, discharge planning will be at home with Septic Shock 2/2 Pneumonia and Urinary Tract Infection (VRE and Pseudomonas)- urinary retention -Off pressors (previously on 3) -Mild leukocytosis (12.4) -Afebrile since 10/21/18 -Procal 1.49 on 11/01/18, 0.66 on 10/21/18 -CXR (11/02/18): worsening pulmonary edema -Most recent blood cultures negative -Most recent urine cultures (10/21/18) +VRE/Pseudomonas, suspect patient likely colonized -Mcintyre in place -Midline removed 11/01/18 -PICC team unable to insert PICC line 11/13/18 -Flomax 0.4 mg PEG daily -Cefepime 1 g Q12H- started 10/27 -ID consulted (Vinod) -neg bc -0.93 procal Apical thrombus -Echo (07/07/18) before cardiac arrest: EF 40-45% -Echo (07/10/19) after cardiac arrest: EF 40%, LV large apical hypokinesis, large 30x20 mm soft tissue apical sessile mass suggestive of thrombus -Echo (08/17/19): LV clot, no significant change -Too high risk for HUBERT -Previously on heparin gtt, Eliquis- stopped due to anemia and vaginal bleeding -ASA 81 mg PEG daily LLE Deep vein thrombosis s/p IVC filter -Venous Doppler (07/18/18): Acute thrombosis of the left common femoral and femoral veins with severe reduction of the venous return -Resolved on repeat imaging -Previously on heparin gtt, Eliquis- stopped due to anemia and vaginal bleeding -s/p IVC filter on 08/23/18 -Vasc surgery consulted (Vicky) T2DM -A1c: 7.8 -Hypoglycemia protocol -Accuchecks Q6H Vtach- Code blue x2 (07/10/18) - Previously on amiodarone ggt - Cardiology consulted (Nolan) NEHA, resolved - Required dialysis early in admission before code blues - Monitor BUN, Cr Shock liver, resolved -Hepatitis panel negative -HIV negative -Monitor LFTs PPx, Diet, Disposition -DVT ppx: scds -GI ppx: protonix 40 via PEG q12 -Tube feeds -Pulmocare goal rate 50 mL/hr- feeds restarted 11/04 -Lactobacillus 1 cap PEG Q12H -Multivitamin PEG daily -Vitamin C 1,000 PEG daily -Vitamin A&E <[place] - Last Filed: 11/24/18 18:39> Objective - Vital Signs/Intake and Output Vital Signs (last 24 hours): Temp Pulse Resp BP Pulse Ox 98.7 F 93 H 20 101/54 L 100 11/24/18 15:00 11/24/18 15:00 11/24/18 15:00 11/24/18 15:00 11/24/18 15:00 Intake and Output: 11/24/18 11/24/18 06:59 18:59 Intake Total 650 2150 Output Total 380 650 Balance 270 1500 - Medications Medications: Current Medications Ascorbic Acid (Vitamin C 500 Mg Tab) 1,000 mg NG DAILY [facility] Last Admin: 11/24/18 10:00 Dose: 1,000 mg Aspirin (Aspirin Chewable) 81 mg GT DAILY [facility] Last Admin: 11/14/18 11:00 Dose: 81 mg Dextrose (Dextrose 50% Inj) 0 ml IVP .STAT PRN; Protocol PRN Reason: Hypoglycemia Protocol Dextrose (Glutose 15) 0 gm PO .ONCE PRN; Protocol PRN Reason: Hypoglycemia Protocol Emollient Ointment (Vaseline Oint) 5 gm TOP DAILY [facility] Last Admin: 11/24/18 10:00 Dose: 5 gm Glucagon (Glucagen Diagnostic Kit) 0 mg IM .STAT PRN; Protocol PRN Reason: Hypoglycemia Protocol Cefepime HCl 1 gm/ Dextrose 50 mls @ 100 mls/hr IVPB Q12H [facility]; Protocol Last Admin: 11/24/18 08:32 Dose: 100 mls/hr Linezolid (Zyvox 600mg/300ml D5w) 600 mg in 300 mls @ 200 mls/hr IVPB Q12H [facility]; Protocol Last Admin: 11/24/18 17:32 Dose: 200 mls/hr Methimazole (Tapazole) 10 mg PO Q8 [facility] Last Admin: 11/24/18 13:55 Dose: 10 mg Midodrine (Proamatine) 10 mg PO TID [facility] Last Admin: 11/24/18 17:35 Dose: 10 mg Modafinil (Provigil) 50 mg PO DAILY [facility] Last Admin: 11/24/18 10:01 Dose: 50 mg Multivitamins (Hexavitamin) 1 tab PEG DAILY [facility] Last Admin: 11/24/18 10:00 Dose: 1 tab Pantoprazole Sodium (Protonix Susp) 40 mg GT Q12H [facility] Last Admin: 11/24/18 10:00 Dose: 40 mg Simethicone (Mylicon Chew Tab) 80 mg PO QID [facility] Last Admin: 11/24/18 17:35 Dose: 80 mg Sodium Bicarbonate (Sodium Bicarbonate Tab) 650 mg PO BID [facility] Last Admin: 11/24/18 17:35 Dose: 650 mg Tamsulosin HCl (Flomax) 0.4 mg PEG DAILY [facility] Last Admin: 11/24/18 10:01 Dose: 0.4 mg - Labs Labs: 11/24/18 11:20 11/24/18 11:20 PT 13.3 SECONDS (9.7-12.2) H 10/23/18 06:05 INR 1.2 10/23/18 06:05 APTT 23 SECONDS (21-34) 10/02/18 06:10 Attending/Attestation - Attestation I have personally seen and examined this patient.: Yes I have fully participated in the care of the patient.: Yes I have reviewed all pertinent clinical information, including history, physical exam and plan: Yes Notes (Text): 11/24/18 18:34 Patient was seen and examined at 5:00 PM. Care of this patient was discussed at length with resident Dr. Villegas. I changed patient's optifoam dressing after applying medihoney to unstageable ulcer in the sacrum and skin surrounding rectum with the help of patient Nurse Harrison and PK Bowen. FlexiSeal Rectum was also inserted by me and will have to be removed/changed by 12/23/18. Spoke with at length again with earlier this morning and explained poor prognosis for patient. met with Palliative Care Nurse Leeroy at 1 PM (I was unable to do so as I was attending to another patient on 6T for HOUSE PAINTER) and has decided on making patient DNR with NO additional testing/procedures but would like to continue antibiotics for now. Please see POLST as completed by Nurse Umaña. [place] D.O.
[2018-11-24] MEDS: Petrolatum Oint Foilpak (5 gm) TOP SCH (10:00)
[2018-11-24] MEDS: Pantoprazole 40 mg Susp UD GT SCH ×2 (10:00→22:18)
[2018-11-24] MEDS: Multiple Vitamins Tab PEG SCH (10:00)
[2018-11-24] MEDS: Simethicone 80 mg Chewtab PO SCH ×4 (10:01→22:16)
[2018-11-24] MEDS: Modafinil 50 MG TAB PO SCH (10:01)
[2018-11-24] MEDS: Lactobacillus Acidophilus 500 MU Cap PO SCH (10:01)
[2018-11-24 11:34] LABS: BASO % 0.3 % (0.0-2.0); EOS # 0.7 K/uL (0.0-0.7); EOS % 7.7 % (0.0-4.0); HEMOGLOBIN 9.4 g/dL (11.0-16.0); LYMPH # 0.8 K/uL (1.0-4.3); LYMPH % 7.9 % (20.0-40.0); MEAN CORPUSCULAR HEMOGLOBIN 29.5 pg (27.0-31.0); MEAN CORPUSCULAR HGB CONC 33.1 g/dL (33.0-37.0); MEAN PLATELET VOLUME 8.4 fL (7.2-11.7); MONO # 0.5 K/uL (0.0-0.8); NEUT # 7.6 K/uL (1.8-7.0); NEUT % 79.1 % (50.0-75.0); PLATELET COUNT 265 K/uL (130-400); RBC 3.17 Mil/uL (3.80-5.20); WHITE BLOOD COUNT 9.6 K/uL (4.8-10.8)
[2018-11-24 11:44] LABS: ALB/GLOB RATIO 0.8 (1.0-2.1); ALBUMIN 2.3 g/dL (3.5-5.0); CALCIUM 7.8 mg/dl (8.6-10.4)
[2018-11-24 12:34] LABS: BANDS 1 % (0-2); EOSINOPHIL 1 % (0-4); LYMPHOCYTE 4 % (20-40); MONOCYTE 5 % (0-10); NEUTROPHIL 89 % (50-75); PLATELET ESTIMATE NORMAL (NORMAL); TOTAL CELLS COUNTED 100
[2018-11-24 12:35] LABS: ANISOCYTOSIS SLIGHT
--- NOTE | 2018-11-24 13:51 | CP.PCM.PN ---
Subjective - Date & Time of Evaluation Date of Evaluation: 11/24/18 Time of Evaluation: 13:47 - Subjective Subjective: Patient examined in bed, agitated, unable to fallow commend, with trach colar and PEG feedings. Right chest tube in place. Per Doctor Neville the chest tube is not to be removed. Patient is developing pressure sore and there is concern that pressure sore will only get worse from fecal contamination and prolonged bed rest. Flexi seal rectal tube in and new air mattress was ordered. Patient is treated for VRE in urine and Pseudomonas in the sputum. Patient's condition is deteriorating. Palliative care was asked to re visit goals of care with the . Objective - Vital Signs/Intake and Output Vital Signs (last 24 hours): Temp Pulse Resp BP Pulse Ox 97.9 F 82 20 99/59 L 98 11/24/18 07:00 11/24/18 07:00 11/24/18 07:00 11/24/18 07:00 11/24/18 07:00 Intake and Output: 11/24/18 11/24/18 06:59 18:59 Intake Total 650 1200 Output Total 380 340 Balance 270 860 - Medications Medications: Current Medications Ascorbic Acid (Vitamin C 500 Mg Tab) 1,000 mg NG DAILY [facility] Last Admin: 11/24/18 10:00 Dose: 1,000 mg Aspirin (Aspirin Chewable) 81 mg GT DAILY [facility] Last Admin: 11/14/18 11:00 Dose: 81 mg Dextrose (Dextrose 50% Inj) 0 ml IVP .STAT PRN; Protocol PRN Reason: Hypoglycemia Protocol Dextrose (Glutose 15) 0 gm PO .ONCE PRN; Protocol PRN Reason: Hypoglycemia Protocol Emollient Ointment (Vaseline Oint) 5 gm TOP DAILY [facility] Last Admin: 11/24/18 10:00 Dose: 5 gm Glucagon (Glucagen Diagnostic Kit) 0 mg IM .STAT PRN; Protocol PRN Reason: Hypoglycemia Protocol Cefepime HCl 1 gm/ Dextrose 50 mls @ 100 mls/hr IVPB Q12H [facility]; Protocol Last Admin: 11/24/18 08:32 Dose: 100 mls/hr Linezolid (Zyvox 600mg/300ml D5w) 600 mg in 300 mls @ 200 mls/hr IVPB Q12H [facility]; Protocol Last Admin: 11/24/18 05:34 Dose: 200 mls/hr Methimazole (Tapazole) 10 mg PO Q8 [facility] Last Admin: 11/24/18 05:37 Dose: 10 mg Midodrine (Proamatine) 10 mg PO TID [facility] Last Admin: 11/24/18 10:01 Dose: 10 mg Modafinil (Provigil) 50 mg PO DAILY [facility] Last Admin: 11/24/18 10:01 Dose: 50 mg Multivitamins (Hexavitamin) 1 tab PEG DAILY [facility] Last Admin: 11/24/18 10:00 Dose: 1 tab Pantoprazole Sodium (Protonix Susp) 40 mg GT Q12H [facility] Last Admin: 11/24/18 10:00 Dose: 40 mg Simethicone (Mylicon Chew Tab) 80 mg PO QID [facility] Last Admin: 11/24/18 10:01 Dose: 80 mg Sodium Bicarbonate (Sodium Bicarbonate Tab) 650 mg PO BID [facility] Last Admin: 11/24/18 10:01 Dose: 650 mg Tamsulosin HCl (Flomax) 0.4 mg PEG DAILY [facility] Last Admin: 11/24/18 10:01 Dose: 0.4 mg - Labs Labs: 11/24/18 11:20 11/24/18 11:20 PT 13.3 SECONDS (9.7-12.2) H 10/23/18 06:05 INR 1.2 10/23/18 06:05 APTT 23 SECONDS (21-34) 10/02/18 06:10 - Constitutional Appears: Agitated, Confused, Chronically Ill - Head Exam Head Exam: ATRAUMATIC, NORMAL INSPECTION, NORMOCEPHALIC - Eye Exam Eye Exam: EOMI, Normal appearance, PERRL Pupil Exam: NORMAL ACCOMODATION, PERRL - ENT Exam ENT Exam: Mucous Membranes Moist, Normal Exam - Neck Exam Neck Exam: Normal Inspection Additional comments: tracheostomy - Respiratory Exam Respiratory Exam: Decreased Breath Sounds, NORMAL BREATHING PATTERN Additional comments: on tracg colar - Cardiovascular Exam Cardiovascular Exam: Tachycardia, Irregular Rhythm - GI/Abdominal Exam Additional comments: PEG - Exam Additional comments: Hernandes - Extremities Exam Extremities Exam: Normal Capillary Refill, Normal Inspection, Pedal Edema - Back Exam Additional comments: sacral pressure sore - Neurological Exam Neurological Exam: Alert, Altered Neuro motor strength exam: Left Upper Extremity: 2/1, Right Upper Extremity: 2/1, Left Lower Extremity: 2/, Right Lower Extremity: 2/ - Psychiatric Exam Psychiatric exam: Agitated, Flat Affect - Skin Skin Exam: Mottled, Normal Color, Warm Assessment and Plan - Assessment and Plan (Free Text) Assessment: Patient is confused, agitated, nonverbal with trach and PEG and on contact isolation for VRE and Pseudomanas infection. Patient has developed the pressure sore which is getting worse due to prolonged bed rest and poor perfusion. WBC 8.9, Hb 9.8, Ret count 2.8. BP 99/59. Family meeting held with patient's . I reviewed patient's clinical presentation and shared my concerns that patient' has been declining. agreed and stated he noticed her moving much less in the bed and not making eye contacts with him. However, despite his observation still had a hope that " God will help him". After meeting with the number of times on this admission i had to make sure this time that he understands the reality. I was very clear that his was given all care available, but due to her very complex condition, meaningful recovery was not expected. I talked in length about the pressure sore, possible complication from it, the chest tube and fluid collection in the lungs . I suggested that we should talk about end of life care as cure is not expected. cried at first , but stated that he feels his suffered a lot since the first incident. He sees her having pain when repositioned and cleaned, she is not making eye contacts with him nor is able to fallow his commends. Mr. Brunner was very clear that he would only want her to be comfortable for as long as she lives. I offered more information about comfort measures in trm of pain control and O2 and food supplements. he agreed. Code status discussed. I explained he meaning of DNR. He understood and said that he would not want any further aggressive intervention for his . I made sure he understood that the is to be expected due to complexity of situation. Mr. Brunner agreed and said he will start collecting money from his friends for when his dies. Mr. Brunner said he could not afford transporting his back to [facility] where she wanted to return and he will find a way to bury her here. Impression * Complexly ill lady with uncurable condition * Aphasia * AMS * Agitation * Pressure sores * Anticipated pain due to pressure sore * Bedridden * begins to realize the poor prognosis and wishes his was treated with comfort measures only and no Chest compressions provided * admits to spiritual distress * Social distress due to lack of finances Suggestion * Continue with trach colar and PEG feedings * Pressure sore care, turning and repositioning, agree with flexi seal rectal tube * Would discontinue further diagnostic studies such as XRays, CTs or any surgical interventions * Would limit blood works to those only advised by ID * Would discuss possibility of chest tube removal * Consider Percocet 1 tb via PEG Q 6 hr PRN pain * Pastoral care for spiritual support * DNR I will meet with again and discuss Hospice care. Advance care discussion 60 min
--- NOTE | 2018-11-24 16:45 | CP.PCM.PN ---
Subjective - Date & Time of Evaluation Date of Evaluation: 11/24/18 Time of Evaluation: 08:00 - Subjective Subjective: discussed on rounds DNR in effect Chest tube drainage less Objective - Vital Signs/Intake and Output Vital Signs (last 24 hours): Temp Pulse Resp BP Pulse Ox 97.9 F 82 20 99/59 L 98 11/24/18 07:00 11/24/18 07:00 11/24/18 07:00 11/24/18 07:00 11/24/18 07:00 Intake and Output: 11/24/18 11/24/18 06:59 18:59 Intake Total 650 2150 Output Total 380 650 Balance 270 1500 - Medications Medications: Current Medications Ascorbic Acid (Vitamin C 500 Mg Tab) 1,000 mg NG DAILY [facility] Last Admin: 11/24/18 10:00 Dose: 1,000 mg Aspirin (Aspirin Chewable) 81 mg GT DAILY [facility] Last Admin: 11/14/18 11:00 Dose: 81 mg Dextrose (Dextrose 50% Inj) 0 ml IVP .STAT PRN; Protocol PRN Reason: Hypoglycemia Protocol Dextrose (Glutose 15) 0 gm PO .ONCE PRN; Protocol PRN Reason: Hypoglycemia Protocol Emollient Ointment (Vaseline Oint) 5 gm TOP DAILY [facility] Last Admin: 11/24/18 10:00 Dose: 5 gm Glucagon (Glucagen Diagnostic Kit) 0 mg IM .STAT PRN; Protocol PRN Reason: Hypoglycemia Protocol Cefepime HCl 1 gm/ Dextrose 50 mls @ 100 mls/hr IVPB Q12H [facility]; Protocol Last Admin: 11/24/18 08:32 Dose: 100 mls/hr Linezolid (Zyvox 600mg/300ml D5w) 600 mg in 300 mls @ 200 mls/hr IVPB Q12H [facility]; Protocol Last Admin: 11/24/18 05:34 Dose: 200 mls/hr Methimazole (Tapazole) 10 mg PO Q8 [facility] Last Admin: 11/24/18 13:55 Dose: 10 mg Midodrine (Proamatine) 10 mg PO TID [facility] Last Admin: 11/24/18 13:54 Dose: 10 mg Modafinil (Provigil) 50 mg PO DAILY [facility] Last Admin: 11/24/18 10:01 Dose: 50 mg Multivitamins (Hexavitamin) 1 tab PEG DAILY [facility] Last Admin: 11/24/18 10:00 Dose: 1 tab Pantoprazole Sodium (Protonix Susp) 40 mg GT Q12H [facility] Last Admin: 11/24/18 10:00 Dose: 40 mg Simethicone (Mylicon Chew Tab) 80 mg PO QID [facility] Last Admin: 11/24/18 13:55 Dose: 80 mg Sodium Bicarbonate (Sodium Bicarbonate Tab) 650 mg PO BID [facility] Last Admin: 11/24/18 10:01 Dose: 650 mg Tamsulosin HCl (Flomax) 0.4 mg PEG DAILY [facility] Last Admin: 11/24/18 10:01 Dose: 0.4 mg - Labs Labs: 11/24/18 11:20 11/24/18 11:20 PT 13.3 SECONDS (9.7-12.2) H 10/23/18 06:05 INR 1.2 10/23/18 06:05 APTT 23 SECONDS (21-34) 10/02/18 06:10 - Constitutional Appears: Confused, Cachectic, Chronically Ill - Head Exam Head Exam: NORMOCEPHALIC - Eye Exam Eye Exam: absent: Scleral icterus - ENT Exam ENT Exam: Mucous Membranes Dry - Neck Exam Neck Exam: absent: Lymphadenopathy - Respiratory Exam Respiratory Exam: Decreased Breath Sounds - Cardiovascular Exam Cardiovascular Exam: REGULAR RHYTHM - GI/Abdominal Exam GI & Abdominal Exam: Distended - Rectal Exam Rectal Exam: Deferred - Exam Exam: NORMAL INSPECTION - Extremities Exam Extremities Exam: absent: Pedal Edema - Back Exam Back Exam: absent: CVA tenderness (L), CVA tenderness (R) - Neurological Exam Neurological Exam: Altered - Psychiatric Exam Psychiatric exam: Depressed - Skin Additional comments: sacral ulcer noted as per Dr Nesbitt Assessment and Plan (1) NEHA (acute kidney injury) Status: Acute (2) Acute renal failure Status: Acute (3) Acute respiratory failure Status: Acute (4) Aspiration pneumonia Status: Acute (5) Septic shock Status: Acute (6) Urinary tract infection Status: Acute (7) Diabetes mellitus Status: Chronic (8) Anoxic brain damage Status: Acute - Assessment and Plan (Free Text) Assessment: cont rx VRE/Pseudomonas poor prognosis DNR
--- NOTE | 2018-11-25 00:07 | CP.PCM.PN ---
<FlorenciaSunil - Last Filed: 11/25/18 06:09> Subjective - Date & Time of Evaluation Date of Evaluation: 11/25/18 Time of Evaluation: 00:02 - Subjective Subjective: PGY-1 Medicine Progress Note for Hospitalist service Patient seen and examined at bedside with baseline confusion, agitation, nonverbal with trach and PEG on contact isolation for VRE and Pseudomanas infection. Patient has developed the pressure sore which is getting worse due to prolonged bed rest and poor perfusion. Patient's had extensive talk with palliative care, now DNR. 12 pt ROS not attained due to pt's clinical status. Objective - Vital Signs/Intake and Output Vital Signs (last 24 hours): Temp Pulse Resp BP Pulse Ox 98.7 F 93 H 20 101/54 L 100 11/24/18 15:00 11/24/18 15:00 11/24/18 15:00 11/24/18 15:00 11/24/18 15:00 Intake and Output: 11/24/18 11/25/18 18:59 06:59 Intake Total 2150 650 Output Total 650 420 Balance 1500 230 - Medications Medications: Current Medications Ascorbic Acid (Vitamin C 500 Mg Tab) 1,000 mg NG DAILY [facility] Last Admin: 11/24/18 10:00 Dose: 1,000 mg Aspirin (Aspirin Chewable) 81 mg GT DAILY [facility] Last Admin: 11/14/18 11:00 Dose: 81 mg Dextrose (Dextrose 50% Inj) 0 ml IVP .STAT PRN; Protocol PRN Reason: Hypoglycemia Protocol Dextrose (Glutose 15) 0 gm PO .ONCE PRN; Protocol PRN Reason: Hypoglycemia Protocol Emollient Ointment (Vaseline Oint) 5 gm TOP DAILY [facility] Last Admin: 11/24/18 10:00 Dose: 5 gm Glucagon (Glucagen Diagnostic Kit) 0 mg IM .STAT PRN; Protocol PRN Reason: Hypoglycemia Protocol Cefepime HCl 1 gm/ Dextrose 50 mls @ 100 mls/hr IVPB Q12H [facility]; Protocol Last Admin: 11/24/18 22:16 Dose: 100 mls/hr Linezolid (Zyvox 600mg/300ml D5w) 600 mg in 300 mls @ 200 mls/hr IVPB Q12H [facility]; Protocol Last Admin: 11/24/18 17:32 Dose: 200 mls/hr Methimazole (Tapazole) 10 mg PO Q8 [facility] Last Admin: 11/24/18 22:18 Dose: 10 mg Midodrine (Proamatine) 10 mg PO TID [facility] Last Admin: 11/24/18 17:35 Dose: 10 mg Modafinil (Provigil) 50 mg PO DAILY [facility] Last Admin: 11/24/18 10:01 Dose: 50 mg Multivitamins (Hexavitamin) 1 tab PEG DAILY [facility] Last Admin: 11/24/18 10:00 Dose: 1 tab Pantoprazole Sodium (Protonix Susp) 40 mg GT Q12H [facility] Last Admin: 11/24/18 22:18 Dose: 40 mg Simethicone (Mylicon Chew Tab) 80 mg PO QID [facility] Last Admin: 11/24/18 22:16 Dose: 80 mg Sodium Bicarbonate (Sodium Bicarbonate Tab) 650 mg PO BID [facility] Last Admin: 11/24/18 17:35 Dose: 650 mg Tamsulosin HCl (Flomax) 0.4 mg PEG DAILY [facility] Last Admin: 11/24/18 10:01 Dose: 0.4 mg - Labs Labs: 11/24/18 11:20 11/24/18 11:20 PT 13.3 SECONDS (9.7-12.2) H 10/23/18 06:05 INR 1.2 10/23/18 06:05 APTT 23 SECONDS (21-34) 10/02/18 06:10 - Constitutional Appears: Chronically Ill - Head Exam Head Exam: ATRAUMATIC, NORMAL INSPECTION, NORMOCEPHALIC - Eye Exam Eye Exam: Nystagmus, Scleral icterus - ENT Exam ENT Exam: Mucous Membranes Dry - Neck Exam Additional comments: trach with vent in place; C/D/I; no active bleeding or purulent discarge - Respiratory Exam Respiratory Exam: Rhonchi, NORMAL BREATHING PATTERN Additional comments: increased secretions, rhonchi bilaterally. - Cardiovascular Exam Cardiovascular Exam: REGULAR RHYTHM, +S1, +S2 - GI/Abdominal Exam GI & Abdominal Exam: Soft, Normal Bowel Sounds. absent: Distended, Firm, Guarding, Rigid, Tenderness Additional comments: noted PEG tube in place w dressing c/d/i; no signs of infection or bleeding, running @ 50/hr no residuals per nursing - Exam Additional comments: mcintyre cath in place - Extremities Exam Extremities Exam: Normal Capillary Refill. absent: Calf Tenderness Additional comments: dependant edema, left worse than right - Neurological Exam Neurological Exam: Alert, Awake - Skin Skin Exam: Dry, Normal Color, Warm Additional comments: [address] outputting fluid Assessment and Plan - Assessment and Plan (Free Text) Assessment: This is a 52 yo female originally admitted to the ICU for septic shock 2/2 to PNA/UTI worsened by cardiac arrest and anoxic brain injury. Patient found to have apical thrombus in heart. Patient is s/p trach and PEG. Patient still unable to be weaned off vent. She has had multiple complications, including DVT and infections (PNA, UTI). s/p IVC filter 08/23. s/p multiple chest tube placements Sep 19-Oct 21. s/p LP 09/15. Patient has shown minimal improvement of cognitive function during the course of this hospitalization. Patient does not have any insurance and therefore cannot be placed in rehab/NH. Multiple conver sations with regarding poor prognosis- Code status now DNR. Palliative and pastoral care have been on board. Plan: Altered mental status/Encephalopathy- suspect anoxic encephalopathy -Code Blue 07/10 and 07/20 -Moved to med surg floor 11/08 -Chest tubes x2 in place -Off sedation -Modafinil 50 mg PO daily -CT head (08/28/18): No hemorrhage or midline shift -MRI brain (09/08/18): No definite mass effect or suspicious extra axial collection. No evidence of acute or subacute brain infarction at this time. Borderline pattern of hydrocephalus. -LP 09/15/18: normal opening pressure - LDH 30, glucose 69, tot prot 67 - CSF Cx: no growth - Other CSF studies pending- called lab 11/01, they will contact [employer] for update -Neurology consulted (George/Ankit) Acute respiratory failure- s/p trach on vent, unable to wean - Tracheostomy 07/24/18, s/p bronchoscopy 08/23 - Patient had tolerated trach collars in early Aug 2018; however she has been on vent to trach since. Fi02: 40% - Bronchoscopy (08/23/18) by Dr. Lozada - Bronchial washings: Pseudomonas Aeruginosa - Fungal Cx: negative - Mycobacterial Cx: negative - Chest physiotherapy increased secretions, but pt is being suctioned by RN regularly - Most recent CT chest (10/27/18): Large bilateral pleural effusions and associ ated consolidations. Trace pericardial effusion. Borderline cardiomegaly. Enlarged heterogeneous partially imaged thyroid gland. - Monitor CO2 - ABG on FiO2 40 (11/02/18): pH 7.34, pCO2 29, pO2 106 - Start Sodium bicarb 650 mg PEG BID - Pulmonary consulted (Neville) - Pain Mgmt Consutled: Dr Clayton 5mg Ketamine IVP before changes, will have trial tmrw Anemia 2/2 to Chronic Diseases +/- Dysfunctional uterine bleeding, stable -Hg 9.8 -Stool occult blood negative -Iron normal, TIBC low, Iron saturation normal, Ferritin normal -B12, folate normal -Vaginal US: thickened endometrium -Transfused pRBC: 1 unit 07/22/18, 2 units 08/13/18, 1 unit 08/17/18, 1 unit 08/23/18, 2 unit 11/15/18 -OBGYN consulted (Gilberto)- no hysterectomy -During transfusion pt went hypotensive 77/41, PRBC adm rate increased from 120 to 150, 1L NS bolus w/ albumin IVPB on other arm -BP 109/80 VRE UTI - afebrile overnight - gram pos cocci in UC, possible contamination - repeat UC - cefepime IVPB - UCx shows VRE Zyvox added Sacral Decubitus Ulcer - Wound care consulted, f/u recs extension to anus: this will require frequent cleaning - recommending repositioning q2hrs - new specialty mattress ordered - [facility] w/ optiforam - feeds increased for greater protein intake Upper Extremity swelling bilateral - f/u upper ext dopplers : neg - holding anticoags due to vaginal bleeding - Mid Line in place, PICC pending BCs Distended abdomen -Resolving, pt had BM -AXR (10/28/18): Nonspecific bowel gas pattern with relative paucity of bowel gas. -Repeat AXR (11/02/18): Normal bowel gas pattern. -PEG tube feeds goal rate 40:Pulmocare -Reglan discontinued due to interaction with zyvox -Miralax PEG BID -Simethicone 80 mg PEG QID Pleural effusions- s/p bilateral chest tubes - Multiple chest tubes and thoracenteses for effusions, most recent s/p bilateral chest tubes 10/27 - Pleural fluid from 10/13/18 - WBC 794, RBC 2083, tot cells 100, neutrophils 87% - Tot prot<3, LDH 145, glucose 146 - CT chest (10/27/18): Placment of 8.5 Irish pigtail drainage catheter within right and left pleural space - Most recent CXR (10/31/18): Status post bilateral chest tube placements. Marked reduction of bilateral pleural effusions, commensurate re-expansion of both lungs. - Repeat CXR 11/02: Worsening pulmonary edema - IR consulted (Partha) - Pulmonology consulted (Neville) Thyroid disorder - Thyroid US (07/16/18): Heterogeneous thyroid echotexture. Numerous nodules as described above. Suggest percutaneous biopsy of the following suspicious nodules; 1.8 x 0.9 x 1.7 cm right lower pole nodule, 1.0 x 0.7 x 0.9 cm right upper pole lesion with intracystic vascular nodule, complex left upper pole nodule measuring 2.1 x 1.5 x 1.8 cm. - Note: Initial thyroid studies taken before amiodarone was given- this is NOT amiodarone induced - TSH <0.02 in 07/2018, 10/31/18 TSH 18.10 - Free T4 >3 in 07/2018, 10/31/2018 free T4 0.24 - wnl TSH, free T4 on 11/08/18 - Methimazole to 10 mg PO Q8H - Off Propranolol 5 mg PO TID due to hypotension - Endocrinology consulted (Irwin) Hypotension -improved, stable -emains stable in 100s-120s/50s-60s - Monitor albumin, administer PRN doses -Midodrine 10 mg PEG TID Atrial fibrillation w/ RVR, resolved -EKG (10/29/18): Afib HR 130 -Cardiology consulted (Nolan) Deconditioning -Patient needs aggressive continued PT/OT- PT signed off as patient does not follow directions -Nursing and move patient OOB to chair -Social work note (08/09/18): patient is undocumented, has not health insurance, discharge planning will be at home with Septic Shock 2/2 Pneumonia and Urinary Tract Infection (VRE and Pseudomonas)- urinary retention -Off pressors (previously on 3) -Mild leukocytosis (12.4) -Afebrile since 10/21/18 -Procal 1.49 on 11/01/18, 0.66 on 10/21/18 -CXR (11/02/18): worsening pulmonary edema -Most recent blood cultures negative -Most recent urine cultures (10/21/18) +VRE/Pseudomonas, suspect patient likely colonized -Mcintyre in place -Midline removed 11/01/18 -PICC team unable to insert PICC line 11/13/18 -Flomax 0.4 mg PEG daily -Cefepime 1 g Q12H- started 10/27 -ID consulted (Vinod) -neg bc -0.93 procal Apical thrombus -Echo (07/07/18) before cardiac arrest: EF 40-45% -Echo (07/10/19) after cardiac arrest: EF 40%, LV large apical hypokinesis, large 30x20 mm soft tissue apical sessile mass suggestive of thrombus -Echo (08/17/19): LV clot, no significant change -Too high risk for HUBERT -Previously on heparin gtt, Eliquis- stopped due to anemia and vaginal bleeding -ASA 81 mg PEG daily LLE Deep vein thrombosis s/p IVC filter -Venous Doppler (07/18/18): Acute thrombosis of the left common femoral and femoral veins with severe reduction of the venous return -Resolved on repeat imaging -Previously on heparin gtt, Eliquis- stopped due to anemia and vaginal bleeding -s/p IVC filter on 08/23/18 -Vasc surgery consulted (Vicky) T2DM -A1c: 7.8 -Hypoglycemia protocol -Accuchecks Q6H Vtach- Code blue x2 (07/10/18) - Previously on amiodarone ggt - Cardiology consulted (Nolan) NEHA, resolved - Required dialysis early in admission before code blues - Monitor BUN, Cr Shock liver, resolved -Hepatitis panel negative -HIV negative -Monitor LFTs PPx, Diet, Disposition -DVT ppx: scds -GI ppx: protonix 40 via PEG q12 -Tube feeds -Pulmocare goal rate 50 mL/hr- feeds restarted 2/ -Lactobacillus 1 cap PEG Q12H -Multivitamin PEG daily -Vitamin C 1,000 PEG daily -Vitamin A&E Further recs as per Dr. Laz Don DO, PGY-1 <[place] Nesbitt - Last Filed: 11/26/18 13:58> Objective - Vital Signs/Intake and Output Vital Signs (last 24 hours): Temp Pulse Resp BP Pulse Ox 98.8 F 109 H 21 115/59 L 100 11/26/18 08:08 11/26/18 08:08 11/26/18 08:08 11/26/18 08:08 11/26/18 08:08 Intake and Output: 11/26/18 11/26/18 06:59 18:59 Intake Total 2100 Output Total 1040 Balance 1060 - Medications Medications: Current Medications Aspirin (Aspirin Chewable) 81 mg GT DAILY [facility] Last Admin: 11/14/18 11:00 Dose: 81 mg Dextrose (Dextrose 50% Inj) 0 ml IVP .STAT PRN; Protocol PRN Reason: Hypoglycemia Protocol Dextrose (Glutose 15) 0 gm PO .ONCE PRN; Protocol PRN Reason: Hypoglycemia Protocol Emollient Ointment (Vaseline Oint) 5 gm TOP DAILY [facility] Last Admin: 11/26/18 09:18 Dose: 5 gm Glucagon (Glucagen Diagnostic Kit) 0 mg IM .STAT PRN; Protocol PRN Reason: Hypoglycemia Protocol Cefepime HCl 1 gm/ Dextrose 50 mls @ 100 mls/hr IVPB Q12H [facility]; Protocol Last Admin: 11/26/18 08:17 Dose: 100 mls/hr Linezolid (Zyvox 600mg/300ml D5w) 600 mg in 300 mls @ 200 mls/hr IVPB Q12H [facility]; Protocol Last Admin: 11/26/18 06:13 Dose: 200 mls/hr Methimazole (Tapazole) 10 mg PO Q8 [facility] Last Admin: 11/26/18 06:18 Dose: 10 mg Midodrine (Proamatine) 10 mg PO TID [facility] Last Admin: 11/26/18 10:34 Dose: 10 mg Pantoprazole Sodium (Protonix Susp) 40 mg GT Q12H [facility] Last Admin: 11/26/18 09:17 Dose: 40 mg Simethicone (Mylicon Chew Tab) 80 mg PO QID [facility] Last Admin: 11/26/18 09:23 Dose: 80 mg Sodium Bicarbonate (Sodium Bicarbonate Tab) 650 mg PO BID [facility] Last Admin: 11/26/18 09:17 Dose: 650 mg - Labs Labs: 11/26/18 11:07 11/26/18 11:07 PT 13.3 SECONDS (9.7-12.2) H 10/23/18 06:05 INR 1.2 10/23/18 06:05 APTT 23 SECONDS (21-34) 10/02/18 06:10 Attending/Attestation - Attestation I have personally seen and examined this patient.: Yes I have fully participated in the care of the patient.: Yes I have reviewed all pertinent clinical information, including history, physical exam and plan: Yes Notes (Text): 11/26/18 13:57 The patient was seen and examined at 12:15 PM Dressing with MediHoney was reapplied to the Sacrum Unstageable ulcer with the help of [employer] and Nursing Students [place] Nesbitt D.O.
[2018-11-25] MEDS: Linezolid 600 mg in D5W 300 ml 600 MG/300 ML BAG IVPB SCH ×2 (05:35→17:58)
[2018-11-25] MEDS: Pantoprazole 40 mg Susp UD GT SCH ×2 (10:15→21:42)
[2018-11-25] MEDS: Multiple Vitamins Tab PEG SCH (10:16)
[2018-11-25] MEDS: Simethicone 80 mg Chewtab PO SCH ×4 (10:19→21:42)
[2018-11-25] MEDS: Petrolatum Oint Foilpak (5 gm) TOP SCH (10:20)
[2018-11-25] MEDS: Modafinil 50 MG TAB PO SCH (10:24)
--- NOTE | 2018-11-26 02:07 | CP.PCM.PN ---
<Sunil Don - Last Filed: 11/26/18 02:04> Subjective - Date & Time of Evaluation Date of Evaluation: 11/26/18 Time of Evaluation: 02:04 - Subjective Subjective: PGY-1 Medicine Progress Note for Dr. Nesbitt Patient seen and examined at bedside, in no acute distress. No acute changes overnight. 12 pt ROS unattainable due to patient's clinical status. Objective - Vital Signs/Intake and Output Vital Signs (last 24 hours): Temp Pulse Resp BP Pulse Ox 99 F 99 H 20 111/62 100 11/26/18 00:00 11/26/18 00:00 11/26/18 00:00 11/26/18 00:00 11/26/18 00:00 Intake and Output: 11/25/18 11/26/18 18:59 06:59 Intake Total 870 900 Output Total 600 590 Balance 270 310 - Medications Medications: Current Medications Ascorbic Acid (Vitamin C 500 Mg Tab) 1,000 mg NG DAILY [facility] Last Admin: 11/25/18 10:16 Dose: 1,000 mg Aspirin (Aspirin Chewable) 81 mg GT DAILY [facility] Last Admin: 11/14/18 11:00 Dose: 81 mg Dextrose (Dextrose 50% Inj) 0 ml IVP .STAT PRN; Protocol PRN Reason: Hypoglycemia Protocol Dextrose (Glutose 15) 0 gm PO .ONCE PRN; Protocol PRN Reason: Hypoglycemia Protocol Emollient Ointment (Vaseline Oint) 5 gm TOP DAILY [facility] Last Admin: 11/25/18 10:20 Dose: 5 gm Glucagon (Glucagen Diagnostic Kit) 0 mg IM .STAT PRN; Protocol PRN Reason: Hypoglycemia Protocol Cefepime HCl 1 gm/ Dextrose 50 mls @ 100 mls/hr IVPB Q12H [facility]; Protocol Last Admin: 11/25/18 21:42 Dose: 100 mls/hr Linezolid (Zyvox 600mg/300ml D5w) 600 mg in 300 mls @ 200 mls/hr IVPB Q12H [facility]; Protocol Last Admin: 11/25/18 17:58 Dose: 200 mls/hr Methimazole (Tapazole) 10 mg PO Q8 [facility] Last Admin: 11/25/18 14:51 Dose: 10 mg Midodrine (Proamatine) 10 mg PO TID [facility] Last Admin: 11/25/18 17:58 Dose: 10 mg Modafinil (Provigil) 50 mg PO DAILY [facility] Last Admin: 11/25/18 10:24 Dose: 50 mg Multivitamins (Hexavitamin) 1 tab PEG DAILY [facility] Last Admin: 11/25/18 10:16 Dose: 1 tab Pantoprazole Sodium (Protonix Susp) 40 mg GT Q12H [facility] Last Admin: 11/25/18 21:42 Dose: 40 mg Simethicone (Mylicon Chew Tab) 80 mg PO QID [facility] Last Admin: 11/25/18 21:42 Dose: 80 mg Sodium Bicarbonate (Sodium Bicarbonate Tab) 650 mg PO BID [facility] Last Admin: 11/25/18 17:58 Dose: 650 mg Tamsulosin HCl (Flomax) 0.4 mg PEG DAILY [facility] Last Admin: 11/25/18 10:17 Dose: 0.4 mg - Labs Labs: 11/24/18 11:20 11/24/18 11:20 PT 13.3 SECONDS (9.7-12.2) H 10/23/18 06:05 INR 1.2 10/23/18 06:05 APTT 23 SECONDS (21-34) 10/02/18 06:10 - Constitutional Appears: Chronically Ill - Head Exam Head Exam: ATRAUMATIC, NORMAL INSPECTION, NORMOCEPHALIC - Eye Exam Eye Exam: Nystagmus, Scleral icterus - ENT Exam ENT Exam: Normal Exam - Neck Exam Additional comments: trach with vent in place; C/D/I; no active bleeding or purulent discarge - Respiratory Exam Respiratory Exam: Rhonchi, NORMAL BREATHING PATTERN Additional comments: 2 chest tubes draining adequately - Cardiovascular Exam Cardiovascular Exam: REGULAR RHYTHM, +S1, +S2 - GI/Abdominal Exam GI & Abdominal Exam: Soft, Normal Bowel Sounds. absent: Distended, Firm, Guarding, Rigid, Tenderness, Rebound Additional comments: PEG tube in place w dressing c/d/i; no signs of infection or bleeding, running @ 50/hr no residuals per nursing - Exam Additional comments: mcintyre cath in place - Extremities Exam Extremities Exam: Normal Capillary Refill, Pedal Edema. absent: Calf Tenderness - Neurological Exam Neurological Exam: Alert, Awake - Skin Skin Exam: Dry, Intact, Normal Color, Warm Assessment and Plan - Assessment and Plan (Free Text) Assessment: This is a 52 yo female originally admitted to the ICU for septic shock 2/2 to PNA/UTI worsened by cardiac arrest and anoxic brain injury. Patient found to have apical thrombus in heart. Patient is s/p trach and PEG. Patient still unable to be weaned off vent. She has had multiple complications, including DVT and infections (PNA, UTI). s/p IVC filter 08/23. s/p multiple chest tube placements Sep 19-Oct 21. s/p LP 09/15. Patient has shown minimal improvement of cognitive function during the course of this hospitalization. Patient does not have any insurance and therefore cannot be placed in rehab/NH. Multiple conversations with regarding poor prognosis- Code status now DNR. Palliative and pastoral care have been on board. Plan: Altered mental status/Encephalopathy- suspect anoxic encephalopathy -Code Blue 07/10 and 07/20 -Moved [facility] floor 11/08 -Chest tubes x2 in place -Off sedation -Modafinil 50 mg PO daily -CT head (08/28/18): No hemorrhage or midline shift -MRI brain (09/08/18): No definite mass effect or suspicious extra axial collection. No evidence of acute or subacute brain infarction at this time. Borderline pattern of hydrocephalus. -LP 09/15/18: normal opening pressure - LDH 30, glucose 69, tot prot 67 - CSF Cx: no growth - Other CSF studies pending- called lab 11/01, they will contact [facility] [facility] for update -Neurology consulted (George/Ankit) Acute respiratory failure- s/p trach on vent, unable to wean - Tracheostomy 07/24/18, s/p bronchoscopy 08/23 - Patient had tolerated trach collars in early Aug 2018; however she has been on vent to trach since. Fi02: 40% - Bronchoscopy (08/23/18) by Dr. Lozada - Bronchial washings: Pseudomonas Aeruginosa - Fungal Cx: negative - Mycobacterial Cx: negative - Chest physiotherapy increased secretions, but pt is being suctioned by RN regularly - Most recent CT chest (10/27/18): Large bilateral pleural effusions and associated consolidations. Trace pericardial effusion. Borderline cardiomegaly. Enlarged heterogeneous partially imaged thyroid gland. - Monitor CO2 - ABG on FiO2 40 (11/02/18): pH 7.34, pCO2 29, pO2 106 - Start Sodium bicarb 650 mg PEG BID - Pulmonary consulted (Neville) - Pain Mgmt Consutled: Dr Clayton 5mg Ketamine IVP before changes, will have trial tmrw Anemia 2/2 to Chronic Diseases +/- Dysfunctional uterine bleeding, stable -Hg 9.8 -Stool occult blood negative -Iron normal, TIBC low, Iron saturation normal, Ferritin normal -B12, folate normal -Vaginal US: thickened endometrium -Transfused pRBC: 1 unit 07/22/18, 2 units 08/13/18, 1 unit 08/17/18, 1 unit 08/23/18, 2 unit 11/15/18 -OBGYN consulted (Gilberto)- no hysterectomy -During transfusion pt went hypotensive 77/41, PRBC adm rate increased from 120 to 150, 1L NS bolus w/ albumin IVPB on other arm -BP 109/80 VRE UTI - afebrile overnight - gram pos cocci in UC, possible contamination - repeat UC - cefepime IVPB - UCx shows VRE Zyvox added Sacral Decubitus Ulcer - Wound care consulted, f/u recs extension to anus: this will require frequent cleaning - recommending repositioning q2hrs - new specialty mattress ordered - [facility] w/ optiforam - feeds increased for greater protein intake Upper Extremity swelling bilateral - f/u upper ext dopplers : neg - holding anticoags due to vaginal bleeding - Mid Line in place, PICC pending BCs Distended abdomen -Resolving, pt had BM -AXR (10/28/18): Nonspecific bowel gas pattern with relative paucity of bowel gas. -Repeat AXR (11/02/18): Normal bowel gas pattern. -PEG tube feeds goal rate 40:Pulmocare -Reglan discontinued due to interaction with zyvox -Miralax PEG BID -Simethicone 80 mg PEG QID Pleural effusions- s/p bilateral chest tubes - Multiple chest tubes and thoracenteses for effusions, most recent s/p bilateral chest tubes 10/27 - Pleural fluid from 10/13/18 - WBC 794, RBC 2083, tot cells 100, neutrophils 87% - Tot prot<3, LDH 145, glucose 146 - CT chest (10/27/18): Placment of 8.5 Persian pigtail drainage catheter within right and left pleural space - Most recent CXR (10/31/18): Status post bilateral chest tube placements. Marked reduction of bilateral pleural effusions, commensurate re-expansion of both lungs. - Repeat CXR 11/02: Worsening pulmonary edema - IR consulted (Partha) - Pulmonology consulted (Neville) Thyroid disorder - Thyroid US (07/16/18): Heterogeneous thyroid echotexture. Numerous nodules as described above. Suggest percutaneous biopsy of the following suspicious nodules; 1.8 x 0.9 x 1.7 cm right lower pole nodule, 1.0 x 0.7 x 0.9 cm right upper pole lesion with intracystic vascular nodule, complex left upper pole n odule measuring 2.1 x 1.5 x 1.8 cm. - Note: Initial thyroid studies taken before amiodarone was given- this is NOT amiodarone induced - TSH <0.02 in 07/2018, 10/31/18 TSH 18.10 - Free T4 >3 in 07/2018, 10/31/2018 free T4 0.24 - wnl TSH, free T4 on 11/08/18 - Methimazole to 10 mg PO Q8H - Off Propranolol 5 mg PO TID due to hypotension - Endocrinology consulted (Irwin) Hypotension -improved, stable -emains stable in 100s-120s/50s-60s - Monitor albumin, administer PRN doses -Midodrine 10 mg PEG TID Atrial fibrillation w/ RVR, resolved -EKG (10/29/18): Afib HR 130 -Cardiology consulted (Nolan) Deconditioning -Patient needs aggressive continued PT/OT- PT signed off as patient does not follow directions -Nursing and move patient OOB to chair -Social work note (08/09/18): patient is undocumented, has not health insurance, discharge planning will be at home with Septic Shock 2/2 Pneumonia and Urinary Tract Infection (VRE and Pseudomonas)- urinary retention -Off pressors (previously on 3) -Mild leukocytosis (12.4) -Afebrile since 10/21/18 -Procal 1.49 on 11/01/18, 0.66 on 10/21/18 -CXR (11/02/18): worsening pulmonary edema -Most recent blood cultures negative -Most recent urine cultures (10/21/18) +VRE/Pseudomonas, suspect patient likely colonized -Mcintyre in place -Midline removed 11/01/18 -PICC team unable to insert PICC line 11/13/18 -Flomax 0.4 mg PEG daily -Cefepime 1 g Q12H- started 10/27 -ID consulted (Vinod) -neg bc -0.93 procal Apical thrombus -Echo (07/07/18) before cardiac arrest: EF 40-45% -Echo (07/10/19) after cardiac arrest: EF 40%, LV large apical hypokinesis, large 30x20 mm soft tissue apical sessile mass suggestive of thrombus -Echo (08/17/19): LV clot, no significant change -Too high risk for HUBERT -Previously on heparin gtt, Eliquis- stopped due to anemia and vaginal bleeding -ASA 81 mg PEG daily LLE Deep vein thrombosis s/p IVC filter -Venous Doppler (07/18/18): Acute thrombosis of the left common femoral and femoral veins with severe reduction of the venous return -Resolved on repeat imaging -Previously on heparin gtt, Eliquis- stopped due to anemia and vaginal bleeding -s/p IVC filter on 08/23/18 -Vasc surgery consulted (Vicky) T2DM -A1c: 7.8 -Hypoglycemia protocol -Accuchecks Q6H Vtach- Code blue x2 (07/10/18) - Previously on amiodarone ggt - Cardiology consulted (Nolan) NEHA, resolved - Required dialysis early in admission before code blues - Monitor BUN, Cr Shock liver, resolved -Hepatitis panel negative -HIV negative -Monitor LFTs PPx, Diet, Disposition -DVT ppx: scds -GI ppx: protonix 40 via PEG q12 -Tube feeds -Pulmocare goal rate 50 mL/hr- feeds restarted 11/04 -Lactobacillus 1 cap PEG Q12H -Multivitamin PEG daily -Vitamin C 1,000 PEG daily -Vitamin A&E Further recs as per Dr. Laz Don DO, PGY-1 <North Nesbitt - Last Filed: 11/26/18 13:57> Objective - Vital Signs/Intake and Output Vital Signs (last 24 hours): Temp Pulse Resp BP Pulse Ox 98.8 F 109 H 21 115/59 L 100 11/26/18 08:08 11/26/18 08:08 11/26/18 08:08 11/26/18 08:08 11/26/18 08:08 Intake and Output: 02/24/19 02/24/19 06:59 18:59 Intake Total 2100 Output Total 1040 Balance 1060 - Medications Medications: Current Medications Aspirin (Aspirin Chewable) 81 mg GT DAILY [facility] Last Admin: 11/14/18 11:00 Dose: 81 mg Dextrose (Dextrose 50% Inj) 0 ml IVP .STAT PRN; Protocol PRN Reason: Hypoglycemia Protocol Dextrose (Glutose 15) 0 gm PO .ONCE PRN; Protocol PRN Reason: Hypoglycemia Protocol Emollient Ointment (Vaseline Oint) 5 gm TOP DAILY [facility] Last Admin: 11/26/18 09:18 Dose: 5 gm Glucagon (Glucagen Diagnostic Kit) 0 mg IM .STAT PRN; Protocol PRN Reason: Hypoglycemia Protocol Cefepime HCl 1 gm/ Dextrose 50 mls @ 100 mls/hr IVPB Q12H [facility]; Protocol Last Admin: 11/26/18 08:17 Dose: 100 mls/hr Linezolid (Zyvox 600mg/300ml D5w) 600 mg in 300 mls @ 200 mls/hr IVPB Q12H [facility]; Protocol Last Admin: 11/26/18 06:13 Dose: 200 mls/hr Methimazole (Tapazole) 10 mg PO Q8 [facility] Last Admin: 11/26/18 06:18 Dose: 10 mg Midodrine (Proamatine) 10 mg PO TID [facility] Last Admin: 11/26/18 10:34 Dose: 10 mg Pantoprazole Sodium (Protonix Susp) 40 mg GT Q12H [facility] Last Admin: 11/26/18 09:17 Dose: 40 mg Simethicone (Mylicon Chew Tab) 80 mg PO QID [facility] Last Admin: 11/26/18 09:23 Dose: 80 mg Sodium Bicarbonate (Sodium Bicarbonate Tab) 650 mg PO BID [facility] Last Admin: 11/26/18 09:17 Dose: 650 mg - Labs Labs: 11/26/18 11:07 11/26/18 11:07 PT 13.3 SECONDS (9.7-12.2) H 10/23/18 06:05 INR 1.2 10/23/18 06:05 APTT 23 SECONDS (21-34) 10/02/18 06:10 Attending/Attestation - Attestation I have personally seen and examined this patient.: Yes I have fully participated in the care of the patient.: Yes I have reviewed all pertinent clinical information, including history, physical exam and plan: Yes Notes (Text): 11/26/18 13:53 Patient was seen and examined at 12:00 PM. I spoke with Nurse Silvia and she changed patient's optifoam dressing after applying medihoney to unstageable ulcer in the sacrum and skin surrounding rectum FlexiSeal Rectum was also inserted by me 11/24/18 and will have to be removed/changed by 12/23/18. Palliative Nurse Leeroy met with on 11/24/18 and patient has been made DNR. I spoke again at length with today 11/26/18 at the time of my exam: He asked again if there was any hope for recovery for patient and I stated that based upon current status, I did not feel that recovery was likely and that prognosis was poor and that continued treatment would not likely improve patient's status. He stated that he was going to be speaking with patient's family to discuss with them, and then will decide on possibility of hospice. North Nesbitt D.O.
[2018-11-26] MEDS: Linezolid 600 mg in D5W 300 ml 600 MG/300 ML BAG IVPB SCH ×2 (06:13→17:34)
[2018-11-26] MEDS: Pantoprazole 40 mg Susp UD GT SCH ×2 (09:17→21:21)
[2018-11-26] MEDS: Petrolatum Oint Foilpak (5 gm) TOP SCH (09:18)
[2018-11-26] MEDS: Simethicone 80 mg Chewtab PO SCH ×4 (09:23→21:21)
[2018-11-26 11:16] LABS: BASO # 0.1 K/uL (0.0-0.2); BASO % 0.5 % (0.0-2.0); EOS # 0.9 K/uL (0.0-0.7); EOS % 8.3 % (0.0-4.0); HEMOGLOBIN 9.3 g/dL (11.0-16.0); LYMPH # 0.8 K/uL (1.0-4.3); LYMPH % 6.9 % (20.0-40.0); MEAN CORPUSCULAR HEMOGLOBIN 29.6 pg (27.0-31.0); MEAN CORPUSCULAR HGB CONC 33.2 g/dL (33.0-37.0); MEAN PLATELET VOLUME 8.5 fL (7.2-11.7); MONO # 0.4 K/uL (0.0-0.8); MONO % 3.4 % (0.0-10.0); NEUT # 8.9 K/uL (1.8-7.0); NEUT % 80.9 % (50.0-75.0); PLATELET COUNT 230 K/uL (130-400); RBC 3.15 Mil/uL (3.80-5.20)
[2018-11-26 11:36] LABS: ALB/GLOB RATIO 0.9 (1.0-2.1); ALBUMIN 2.3 g/dL (3.5-5.0); ALT/SGPT 24 U/L (9-52); AST/SGOT 21 U/L (14-36); BLOOD UREA NITROGEN 66 mg/dL (7-17); CALCIUM 7.5 mg/dl (8.6-10.4); GFR NON-AFRICAN AMERICAN 52
[2018-11-26 12:22] LABS: EOSINOPHIL 8 % (0-4); LYMPHOCYTE 4 % (20-40); MONOCYTE 3 % (0-10); NEUTROPHIL 85 % (50-75); PLATELET ESTIMATE NORMAL (NORMAL); TOTAL CELLS COUNTED 100
[2018-11-26 12:23] LABS: ANISOCYTOSIS SLIGHT
--- NOTE | 2018-11-26 17:15 | CP.PCM.PN ---
Subjective - Date & Time of Evaluation Date of Evaluation: 11/26/18 Time of Evaluation: 08:00 - Subjective Subjective: t max 99 IV rx in progress DNR in effect Objective - Vital Signs/Intake and Output Vital Signs (last 24 hours): Temp Pulse Resp BP Pulse Ox 99.0 F 78 20 87/48 L 100 11/26/18 15:00 11/26/18 15:00 11/26/18 15:00 11/26/18 15:00 11/26/18 15:00 Intake and Output: 11/26/18 11/26/18 06:59 18:59 Intake Total 2100 500 Output Total 1040 290 Balance 1060 210 - Medications Medications: Current Medications Aspirin (Aspirin Chewable) 81 mg GT DAILY [facility] Last Admin: 11/14/18 11:00 Dose: 81 mg Dextrose (Dextrose 50% Inj) 0 ml IVP .STAT PRN; Protocol PRN Reason: Hypoglycemia Protocol Dextrose (Glutose 15) 0 gm PO .ONCE PRN; Protocol PRN Reason: Hypoglycemia Protocol Emollient Ointment (Vaseline Oint) 5 gm TOP DAILY [facility] Last Admin: 11/26/18 09:18 Dose: 5 gm Glucagon (Glucagen Diagnostic Kit) 0 mg IM .STAT PRN; Protocol PRN Reason: Hypoglycemia Protocol Cefepime HCl 1 gm/ Dextrose 50 mls @ 100 mls/hr IVPB Q12H [facility]; Protocol Last Admin: 11/26/18 08:17 Dose: 100 mls/hr Linezolid (Zyvox 600mg/300ml D5w) 600 mg in 300 mls @ 200 mls/hr IVPB Q12H [facility]; Protocol Last Admin: 11/26/18 06:13 Dose: 200 mls/hr Methimazole (Tapazole) 10 mg PO Q8 [facility] Last Admin: 11/26/18 06:18 Dose: 10 mg Midodrine (Proamatine) 10 mg PO TID [facility] Last Admin: 11/26/18 14:50 Dose: 10 mg Pantoprazole Sodium (Protonix Susp) 40 mg GT Q12H [facility] Last Admin: 11/26/18 09:17 Dose: 40 mg Simethicone (Mylicon Chew Tab) 80 mg PO QID [facility] Last Admin: 11/26/18 14:50 Dose: 80 mg Sodium Bicarbonate (Sodium Bicarbonate Tab) 650 mg PO BID [facility] Last Admin: 11/26/18 09:17 Dose: 650 mg - Labs Labs: 11/26/18 11:07 11/26/18 11:07 PT 13.3 SECONDS (9.7-12.2) H 10/23/18 06:05 INR 1.2 10/23/18 06:05 APTT 23 SECONDS (21-34) 10/02/18 06:10 - Constitutional Appears: Confused, Cachectic, Chronically Ill - Head Exam Head Exam: ATRAUMATIC, NORMAL INSPECTION, NORMOCEPHALIC - Eye Exam Eye Exam: EOMI, Normal appearance, PERRL Pupil Exam: NORMAL ACCOMODATION, PERRL - ENT Exam ENT Exam: Mucous Membranes Moist, Normal Exam - Neck Exam Neck Exam: Full ROM, Normal Inspection. absent: Lymphadenopathy - Respiratory Exam Respiratory Exam: Clear to Ausculation Bilateral, NORMAL BREATHING PATTERN - Cardiovascular Exam Cardiovascular Exam: REGULAR RHYTHM, +S1, +S2. absent: Murmur - GI/Abdominal Exam GI & Abdominal Exam: Soft, Normal Bowel Sounds. absent: Tenderness - Rectal Exam Rectal Exam: Deferred - Exam Exam: NORMAL INSPECTION - Extremities Exam Extremities Exam: Full ROM, Normal Capillary Refill, Normal Inspection. absent: Joint Swelling, Pedal Edema - Back Exam Back Exam: NORMAL INSPECTION - Neurological Exam Neurological Exam: Altered - Psychiatric Exam Psychiatric exam: Depressed - Skin Skin Exam: Dry. absent: Intact Assessment and Plan (1) NEHA (acute kidney injury) Status: Acute (2) Acute renal failure Status: Acute (3) Acute respiratory failure Status: Acute (4) Aspiration pneumonia Status: Acute (5) Septic shock Status: Acute (6) Urinary tract infection Status: Acute (7) Diabetes mellitus Status: Chronic (8) Anoxic brain damage Status: Acute - Assessment and Plan (Free Text) Assessment: cont iv rx for total [address] weeks to discuss with Dr Lozada
[2018-11-27] MEDS: Linezolid 600 mg in D5W 300 ml 600 MG/300 ML BAG IVPB SCH ×2 (05:35→18:48)
--- NOTE | 2018-11-27 07:19 | CP.PCM.PN ---
<Evaristo Barber - Last Filed: 11/27/18 17:22> Subjective - Date & Time of Evaluation Date of Evaluation: 11/27/18 Time of Evaluation: 15:04 - Subjective Subjective: PGY-1 Medicine Progress Note for Dr. Leahy Patient seen and examined at bedside. No acute changes overnight. 12 pt ROS unattainable due to patient's clinical status. Objective - Vital Signs/Intake and Output Vital Signs (last 24 hours): Temp Pulse Resp BP Pulse Ox 99.5 F 85 20 100/56 L 99 11/27/18 00:00 11/27/18 00:00 11/27/18 00:00 11/27/18 00:00 11/27/18 00:00 Intake and Output: 11/27/18 11/27/18 06:59 18:59 Intake Total 950 Output Total 100 650 Balance -100 300 - Medications Medications: Current Medications Aspirin (Aspirin Chewable) 81 mg GT DAILY [facility] Last Admin: 11/14/18 11:00 Dose: 81 mg Dextrose (Dextrose 50% Inj) 0 ml IVP .STAT PRN; Protocol PRN Reason: Hypoglycemia Protocol Dextrose (Glutose 15) 0 gm PO .ONCE PRN; Protocol PRN Reason: Hypoglycemia Protocol Emollient Ointment (Vaseline Oint) 5 gm TOP DAILY [facility] Last Admin: 11/26/18 09:18 Dose: 5 gm Glucagon (Glucagen Diagnostic Kit) 0 mg IM .STAT PRN; Protocol PRN Reason: Hypoglycemia Protocol Cefepime HCl 1 gm/ Dextrose 50 mls @ 100 mls/hr IVPB Q12H [facility]; Protocol Last Admin: 11/26/18 20:03 Dose: 100 mls/hr Linezolid (Zyvox 600mg/300ml D5w) 600 mg in 300 mls @ 200 mls/hr IVPB Q12H [facility]; Protocol Last Admin: 11/27/18 05:35 Dose: 200 mls/hr Methimazole (Tapazole) 10 mg PO Q8 [facility] Last Admin: 11/26/18 21:23 Dose: 10 mg Midodrine (Proamatine) 10 mg PO TID [facility] Last Admin: 11/26/18 17:25 Dose: 10 mg Pantoprazole Sodium (Protonix Susp) 40 mg GT Q12H [facility] Last Admin: 11/26/18 21:21 Dose: 40 mg Simethicone (Mylicon Chew Tab) 80 mg PO QID [facility] Last Admin: 11/26/18 21:21 Dose: 80 mg Sodium Bicarbonate (Sodium Bicarbonate Tab) 650 mg PO BID [facility] Last Admin: 11/26/18 17:25 Dose: 650 mg - Labs Labs: 11/26/18 11:07 11/26/18 11:07 PT 13.3 SECONDS (9.7-12.2) H 10/23/18 06:05 INR 1.2 10/23/18 06:05 APTT 23 SECONDS (21-34) 10/02/18 06:10 - Additional Findings Additional findings: - Constitutional Appears: Chronically Ill - Head Exam Head Exam: ATRAUMATIC, NORMAL INSPECTION, NORMOCEPHALIC - Eye Exam Eye Exam: Nystagmus, Scleral icterus, Tearing noted - ENT Exam ENT Exam: Normal Exam - Neck Exam Additional comments: trach with vent in place; C/D/I; no active bleeding or purulent discarge - Respiratory Exam Respiratory Exam: Rhonchi, NORMAL BREATHING PATTERN Additional comments: 2 chest tubes - Cardiovascular Exam Cardiovascular Exam: REGULAR RHYTHM, +S1, +S2 - GI/Abdominal Exam GI & Abdominal Exam: Soft, Normal Bowel Sounds. absent: Distended, Firm, Guarding, Rigid, Tenderness, Rebound Additional comments: PEG tube in place w dressing c/d/i; no signs of infection or bleeding Dressing date is on 11/24. Will need to be changed - Exam Additional comments: mcintyre cath in place. Rectoseal in place as well. - Extremities Exam Extremities Exam: Normal Capillary Refill, Pedal Edema. absent: Calf Tenderness - Neurological Exam Neurological Exam: Alert, Awake - Skin Skin Exam: Dry, Intact, Normal Color, Warm. Stage 2 sacral ulcer is well healing, no signs of infection. Assessment and Plan - Assessment and Plan (Free Text) Assessment: This is a 52 yo female originally admitted to the ICU for septic shock 2/2 to PNA/UTI worsened by cardiac arrest and anoxic brain injury. Patient found to hav e apical thrombus in heart. Patient is s/p trach and PEG. Patient still unable to be weaned off vent. She has had multiple complications, including DVT and infections (PNA, UTI). s/p IVC filter 08/23. s/p multiple chest tube placements Sep 19-Oct 21. s/p LP 09/15. Patient has shown minimal improvement of cognitive function during the course of this hospitalization. Patient does not have any insurance and therefore cannot be placed in rehab/NH. Multiple conversations with regarding poor prognosis- Code status now DNR. Palliative and pastoral care have been on board. Plan: Altered mental status/Encephalopathy- suspect anoxic encephalopathy -Code Blue 07/10 and 07/20 -Moved to [facility] floor 11/08 -Chest tubes x2 in place -Off sedation -Modafinil 50 mg PO daily -CT head (08/28/18): No hemorrhage or midline shift -MRI brain (09/08/18): No definite mass effect or suspicious extra axial collection. No evidence of acute or subacute brain infarction at this time. Borderline pattern of hydrocephalus. -LP 09/15/18: normal opening pressure - LDH 30, glucose 69, tot prot 67 - CSF Cx: no growth - Other CSF studies pending- called lab 11/01, they will contact [facility] for update -Neurology consulted (George/Ankit) Acute respiratory failure- s/p trach on vent, unable to wean - Tracheostomy 07/24/18, s/p bronchoscopy 08/23 - Patient had tolerated trach collars in early Aug 2018; however she has been on vent to trach since. Fi02: 40% - Bronchoscopy (08/23/18) by Dr. Lozada - Bronchial washings: Pseudomonas Aeruginosa - Fungal Cx: negative - Mycobacterial Cx: negative - Chest physiotherapy increased secretions, but pt is being suctioned by RN regularly - Most recent CT chest (10/27/18): Large bilateral pleural effusions and associated consolidations. Trace pericardial effusion. Borderline cardiomegaly. Enlarged heterogeneous partially imaged thyroid gland. - Monitor CO2 - ABG on FiO2 40 (11/02/18): pH 7.34, pCO2 29, pO2 106 - Start Sodium bicarb 650 mg PEG BID - Pulmonary consulted (Neville) - Pain Mgmt Consulted: Dr Clayton 5mg Ketamine IVP before changes, will have trial tmrw Anemia 2/2 to Chronic Diseases +/- Dysfunctional uterine bleeding, stable -Hg stable -Stool occult blood negative -Iron normal, TIBC low, Iron saturation normal, Ferritin normal -B12, folate normal -Vaginal US: thickened endometrium -Transfused pRBC: 1 unit 07/22/18, 2 units 08/13/18, 1 unit 08/17/18, 1 unit 08/23/18, 2 unit 11/15/18 -OBGYN consulted (Gilberto)- no hysterectomy -During transfusion pt went hypotensive 77/41, PRBC adm rate increased from 120 to 150, 1L NS bolus w/ albumin IVPB on other arm -BP 109/80 VRE UTI - afebrile - UCx shows VRE sensitive to linezolid - Infectious disease recommends IV abx for total 3 weeks - cefepime IVPB 10/27 for P. aeruginosa Zyvox added 11/17 for VRE in Urine Sacral Decubitus Ulcer, stage 2 - Wound care consulted, f/u recs extension to anus: this will require frequent cleaning - recommending repositioning q2hrs - new specialty mattress ordered - [facility] w/ optiforam - feeds increased for greater protein intake Upper Extremity swelling bilateral - f/u upper ext dopplers : neg - holding anticoags due to vaginal bleeding - Mid Line in place, PICC pending BCs Distended abdomen -Resolving, pt had BM -AXR (10/28/18): Nonspecific bowel gas pattern with relative paucity of bowel gas. -Repeat AXR (11/02/18): Normal bowel gas pattern. -PEG tube feeds goal rate 40:Pulmocare -Reglan discontinued due to interaction with zyvox -Miralax PEG BID -Simethicone 80 mg PEG QID Pleural effusions- s/p bilateral chest tubes - Multiple chest tubes and thoracenteses for effusions, most recent s/p bilateral chest tubes 10/27 - Pleural fluid from 10/13/18 - WBC 794, RBC 2083, tot cells 100, neutrophils 87% - Tot prot<3, LDH 145, glucose 146 - CT chest (10/27/18): Placment of 8.5 Niuean pigtail drainage catheter within right and left pleural space - Most recent CXR (10/31/18): Status post bilateral chest tube placements. Marked reduction of bilateral pleural effusions, commensurate re-expansion of both lungs. - Repeat CXR 11/02: Worsening pulmonary edema - IR consulted (Partha) - Pulmonology consulted (Neville) Thyroid disorder - Thyroid US (07/16/18): Heterogeneous thyroid echotexture. Numerous nodules as described above. Suggest percutaneous biopsy of the following suspicious nodules; 1.8 x 0.9 x 1.7 cm right lower pole nodule, 1.0 x 0.7 x 0.9 cm right upper pole lesion with intracystic vascular nodule, complex left upper pole nodule measuring 2.1 x 1.5 x 1.8 cm. - Note: Initial thyroid studies taken before amiodarone was given- this is NOT amiodarone induced - TSH <0.02 in 07/2018, 10/31/18 TSH 18.10 - Free T4 >3 in 07/2018, 10/31/2018 free T4 0.24 - wnl TSH, free T4 on 11/08/18 - Methimazole to 10 mg PO Q8H - Off Propranolol 5 mg PO TID due to hypotension - Endocrinology consulted (Irwin) Hypotension -improved, stable -emains stable in 100s-120s/50s-60s - Monitor albumin, administer PRN doses -Midodrine 10 mg PEG TID Atrial fibrillation w/ RVR, resolved -EKG (10/29/18): Afib HR 130 -Cardiology consulted (Nolan) Deconditioning -Patient needs aggressive continued PT/OT- PT signed off as patient does not follow directions -Nursing and move patient OOB to chair -Social work note (08/09/18): patient is undocumented, has not health insurance, discharge planning will be at home with Septic Shock 2/2 Pneumonia and Urinary Tract Infection (VRE and Pseudomonas)- urinary retention -Off pressors (previously on 3) -Afebrile since 10/21/18 -Procal 1.49 on 11/01/18, 0.66 on 10/21/18 -CXR (11/02/18): worsening pulmonary edema -Most recent blood cultures negative -Most recent urine cultures (10/21/18) +VRE/Pseudomonas, suspect patient likely colonized -Mcintyre in place -Midline removed 11/01/18 -PICC team unable to insert PICC line 11/13/18 -Flomax 0.4 mg PEG daily -Cefepime 1 g Q12H- started 10/27 -ID consulted (Vinod) -neg bc -0.93 procal Apical thrombus -Echo (07/07/18) before cardiac arrest: EF 40-45% -Echo (07/10/19) after cardiac arrest: EF 40%, LV large apical hypokinesis, large 30x20 mm soft tissue apical sessile mass suggestive of thrombus -Echo (08/17/19): LV clot, no significant change -Too high risk for HUBERT -Previously on heparin gtt, Eliquis- stopped due to anemia and vaginal bleeding -ASA 81 mg PEG daily LLE Deep vein thrombosis s/p IVC filter -Venous Doppler (07/18/18): Acute thrombosis of the left common femoral and femoral veins with severe reduction of the venous return -Resolved on repeat imaging -Previously on heparin gtt, Eliquis- stopped due to anemia and vaginal bleeding -s/p IVC filter on 08/23/18 -Vasc surgery consulted (Vicky) T2DM -A1c: 7.8 -Hypoglycemia protocol -Accuchecks Q6H Vtach- Code blue x2 (07/10/18) - Previously on amiodarone ggt - Cardiology consulted (Nolan) NEHA, resolved - Required dialysis early in admission before code blues - Monitor BUN, Cr Shock liver, resolved -Hepatitis panel negative -HIV negative -Monitor LFTs PPx, Diet, Disposition -DVT ppx: scds -GI ppx: protonix 40 via PEG q12 -Tube feeds -Pulmocare goal rate 50 mL/hr- feeds restarted 2/2 -Lactobacillus 1 cap PEG Q12H -Multivitamin PEG daily -Vitamin C 1,000 PEG daily -Vitamin A&E Dispo: Continue Abx for tx of VRE in urine and p. aeruginosa in trach aspirate. Infectious disease on board. Pt has been made DNR with POLST form for comfort care in place. stated that he was going to be speaking with patient's family to discuss with them, and then will decide on possibility of hospice. Case discussed with Dr. Leahy. <Saira Leahy V - Last Filed: 11/27/18 18:39> Objective - Vital Signs/Intake and Output Vital Signs (last 24 hours): Temp Pulse Resp BP Pulse Ox 98.1 F 76 18 100/59 L 100 11/27/18 16:00 11/27/18 16:00 11/27/18 16:00 11/27/18 16:00 11/27/18 16:00 Intake and Output: 11/27/18 11/27/18 06:59 18:59 Intake Total 1450 Output Total 100 910 Balance -100 540 - Medications Medications: Current Medications Aspirin (Aspirin Chewable) 81 mg GT DAILY [facility] Last Admin: 11/14/18 11:00 Dose: 81 mg Dextrose (Dextrose 50% Inj) 0 ml IVP .STAT PRN; Protocol PRN Reason: Hypoglycemia Protocol Dextrose (Glutose 15) 0 gm PO .ONCE PRN; Protocol PRN Reason: Hypoglycemia Protocol Emollient Ointment (Vaseline Oint) 5 gm TOP DAILY [facility] Last Admin: 11/27/18 09:03 Dose: 5 gm Glucagon (Glucagen Diagnostic Kit) 0 mg IM .STAT PRN; Protocol PRN Reason: Hypoglycemia Protocol Cefepime HCl 1 gm/ Dextrose 50 mls @ 100 mls/hr IVPB Q12H [facility]; Protocol Last Admin: 11/27/18 08:18 Dose: 100 mls/hr Linezolid (Zyvox 600mg/300ml D5w) 600 mg in 300 mls @ 200 mls/hr IVPB Q12H [facility]; Protocol Last Admin: 11/27/18 05:35 Dose: 200 mls/hr Methimazole (Tapazole) 10 mg PO Q8 [facility] Last Admin: 11/26/18 21:23 Dose: 10 mg Midodrine (Proamatine) 10 mg PO TID [facility] Last Admin: 11/27/18 13:09 Dose: 10 mg Pantoprazole Sodium (Protonix Susp) 40 mg GT Q12H [facility] Last Admin: 11/27/18 08:19 Dose: 40 mg Simethicone (Mylicon Chew Tab) 80 mg PO QID [facility] Last Admin: 11/27/18 13:09 Dose: 80 mg Sodium Bicarbonate (Sodium Bicarbonate Tab) 650 mg PO BID [facility] Last Admin: 11/27/18 09:03 Dose: 650 mg - Labs Labs: 11/26/18 11:07 11/26/18 11:07 PT 13.3 SECONDS (9.7-12.2) H 10/23/18 06:05 INR 1.2 10/23/18 06:05 APTT 23 SECONDS (21-34) 10/02/18 06:10 Assessment and Plan (1) Septic shock Status: Acute (2) Acute respiratory failure Status: Acute (3) Urinary tract infection Status: Acute (4) Acute renal failure Status: Acute (5) Aspiration pneumonia Status: Acute (6) Diabetes mellitus Status: Chronic (7) Ventricular arrhythmia Status: Acute (8) Hyperthyroidism Status: Acute (9) Anemia Status: Acute (10) Prophylactic measure Status: Acute Attending/Attestation - Attestation I have personally seen and examined this patient.: Yes I have fully participated in the care of the patient.: Yes I have reviewed all pertinent clinical information, including history, physical exam and plan: Yes Notes (Text): Patient seen, examined, and case discussed with day-time resident. patient transferred to the 3rd floor general medical floor in contact isolation room after an extended stay in the stepdown unit in the intensive care unit. This is a 53-year-old female with a prolonged hospitalization for treatment for septic shock complicated by both pneumonia and urinary tract infections, anoxic encephalopathy likely secondary to 2 cardiac arrest during hospitalization, hyperthyroidism which had been controlled on methimazole, which is on hold until nov 05, shock liver which is now recovered, history of apical thrombus which is currently being treated with aspirin and is not on anticoagulation secondary to worsening heavy vaginal bleeding which required multiple blood transfusions during hospitalization, history of left lower extremity DVT which falling 1 month of anticoagulation has radiographically disappeared on repeat ultrasound and has now an IVC filter, as well as diabetes, vitamin D deficiency. The most recent update is that patient's so he will had a discussion which were gone on November 24 and has noted to make the patient DO NOT RESUSCITATE as well as a pulse which is attached to the chart to not promote any suffering for the patient. At bedside patient is visibly crying which she normally is and is likely attributed to both the pain that she is feeling within her sacrum as well as the fact that she does have dependent edema both in the upper and lower extremities and still has 2 chest tubes attached. We did physically rotate her to see the this noted tearing over the over the bite area which does elicit pain we did we did reemphasize the offloading by the wedges and I did speak with Silvano the wound care nurse as well. Patient remains on IV antibiotic therapy. Patient has been on Maxipime since October 27 for pseudomonal pneumonia. As well as she has been on Zyvox IV since at least November 13 for VRE UTI given fever of 100.9 Fahrenheit. It is quite difficult for the patient to clear her infections. She is very visibly cachectic low albumin and is only PEG tube dependent on her feeds. Her still needs time to speak with her family in [facility] in regards to how she is doing here. I did emphasize to him that we are not here to cotter any decision given that he has been here every single day since her hospitalization and he is aware we have attempted to try everything possible to help his though there is no clinical improvement. He is a very grateful and kind person. And I do foresee him having a difficult time if if he chooses to pursue hospice. I also know that financially is a stressor on him as well since ideally they would like she would like to take his back home.
[2018-11-27] MEDS: Pantoprazole 40 mg Susp UD GT SCH ×2 (08:19→20:52)
[2018-11-27] MEDS: Simethicone 80 mg Chewtab PO SCH ×4 (09:03→21:29)
[2018-11-27] MEDS: Petrolatum Oint Foilpak (5 gm) TOP SCH (09:03)
[2018-11-28] MEDS: Linezolid 600 mg in D5W 300 ml 600 MG/300 ML BAG IVPB SCH ×2 (05:35→18:53)
--- NOTE | 2018-11-28 07:52 | CP.PCM.PN ---
<Evaristo Barber - Last Filed: 11/28/18 13:11> Subjective - Date & Time of Evaluation Date of Evaluation: 11/28/18 Time of Evaluation: 09:45 - Subjective Subjective: PGY-1 Medicine Progress Note for Dr. Leahy Patient seen and examined at bedside. No acute changes overnight. 12 pt ROS unattainable due to patient's clinical status. Pt produced approximately 50 cc overnight from right chest tube as per RN, nothing from left chest tube. Objective - Vital Signs/Intake and Output Vital Signs (last 24 hours): Temp Pulse Resp BP Pulse Ox 98.1 F 97 H 20 108/62 100 11/28/18 00:00 11/28/18 00:00 11/28/18 00:00 11/28/18 00:00 11/28/18 00:00 Intake and Output: 11/28/18 11/28/18 06:59 18:59 Intake Total 2150 Output Total 2350 Balance -200 - Medications Medications: Current Medications Aspirin (Aspirin Chewable) 81 mg GT DAILY [facility] Last Admin: 11/14/18 11:00 Dose: 81 mg Dextrose (Dextrose 50% Inj) 0 ml IVP .STAT PRN; Protocol PRN Reason: Hypoglycemia Protocol Dextrose (Glutose 15) 0 gm PO .ONCE PRN; Protocol PRN Reason: Hypoglycemia Protocol Emollient Ointment (Vaseline Oint) 5 gm TOP DAILY [facility] Last Admin: 11/27/18 09:03 Dose: 5 gm Glucagon (Glucagen Diagnostic Kit) 0 mg IM .STAT PRN; Protocol PRN Reason: Hypoglycemia Protocol Cefepime HCl 1 gm/ Dextrose 50 mls @ 100 mls/hr IVPB Q12H [facility]; Protocol Last Admin: 11/27/18 20:49 Dose: 100 mls/hr Linezolid (Zyvox 600mg/300ml D5w) 600 mg in 300 mls @ 200 mls/hr IVPB Q12H [facility]; Protocol Last Admin: 11/28/18 05:35 Dose: 200 mls/hr Methimazole (Tapazole) 10 mg PO Q8 [facility] Last Admin: 11/28/18 06:13 Dose: 10 mg Midodrine (Proamatine) 10 mg PO TID [facility] Last Admin: 11/27/18 18:55 Dose: 10 mg Pantoprazole Sodium (Protonix Susp) 40 mg GT Q12H [facility] Last Admin: 11/27/18 20:52 Dose: 40 mg Simethicone (Mylicon Chew Tab) 80 mg PO QID [facility] Last Admin: 11/27/18 21:29 Dose: 80 mg Sodium Bicarbonate (Sodium Bicarbonate Tab) 650 mg PO BID [facility] Last Admin: 11/27/18 18:46 Dose: 650 mg - Labs Labs: 11/26/18 11:07 11/26/18 11:07 PT 13.3 SECONDS (9.7-12.2) H 10/23/18 06:05 INR 1.2 10/23/18 06:05 APTT 23 SECONDS (21-34) 10/02/18 06:10 - Additional Findings Additional findings: - Constitutional Appears: Chronically Ill - Head Exam Head Exam: ATRAUMATIC, NORMAL INSPECTION, NORMOCEPHALIC - Eye Exam Eye Exam: Nystagmus, Scleral icterus, Lacrimation noted bilaterally - ENT Exam ENT Exam: Normal Exam - Neck Exam Additional comments: trach with vent in place; C/D/I; no active bleeding or purulent discharge - Respiratory Exam Respiratory Exam: Rhonchi, NORMAL BREATHING PATTERN Additional comments: 2 chest tubes - Cardiovascular Exam Cardiovascular Exam: REGULAR RHYTHM, +S1, +S2 - GI/Abdominal Exam GI & Abdominal Exam: Soft, Normal Bowel Sounds. absent: Distended, Firm, Guarding, Rigid, Tenderness, Rebound Additional comments: PEG tube in place w dressing c/d/i; no signs of infection or bleeding Dressing date change is 11/27 - Exam Additional comments: mcintyre cath in place. Rectoseal in place as well. - Extremities Exam Extremities Exam: Normal Capillary Refill, Pedal Edema. absent: Calf Tenderness - Neurological Exam Neurological Exam: Alert, Awake - Skin Skin Exam: Dry, Intact, Normal Color, Warm. Stage 2 sacral ulcer is well healing, no signs of infection. Assessment and Plan - Assessment and Plan (Free Text) Assessment: This is a 52 yo female originally admitted to the ICU for septic shock 2/2 to PNA/UTI worsened by cardiac arrest and anoxic brain injury. Patient found to have apical thrombus in heart. Patient is s/p trach and PEG. Patient still unable to be weaned off vent. She has had multiple complications, including DVT and infections (PNA, UTI). s/p IVC filter 08/23. s/p multiple chest tube placements Sep 19-Oct 21. s/p LP 09/15. Patient has shown minimal improvement of cognitive function during the course of this hospitalization. Patient does not have any insurance and therefore cannot be placed in rehab/NH. Multiple conversations with regarding poor prognosis- Code status now DNR. Palliative and pastoral care have been on board. Plan: Altered mental status/Encephalopathy- suspect anoxic encephalopathy -Code Blue 07/10 and 07/20 -Moved to [facility] floor 11/08 -Chest tubes x2 in place -Off sedation -Modafinil 50 mg PO daily -CT head (08/28/18): No hemorrhage or midline shift -MRI brain (09/08/18): No definite mass effect or suspicious extra axial collection. No evidence of acute or subacute brain infarction at this time. Borderline pattern of hydrocephalus. -LP 09/15/18: normal opening pressure - LDH 30, glucose 69, tot prot 67 - CSF Cx: no growth - Other CSF studies pending- called lab 11/01, they will contact [facility] for update -Neurology consulted (George/Ankit) Acute respiratory failure- s/p trach on vent, unable to wean - Tracheostomy 07/24/18, s/p bronchoscopy 08/23 - Patient had tolerated trach collars in early Aug 2018; however she has been on vent to trach since. Fi02: 40% - Bronchoscopy (08/23/18) by Dr. Lozada - Bronchial washings: Pseudomonas Aeruginosa - Fungal Cx: negative - Mycobacterial Cx: negative - Chest physiotherapy increased secretions, but pt is being suctioned by RN regularly - Most recent CT chest (10/27/18): Large bilateral pleural effusions and associated consolidations. Trace pericardial effusion. Borderline cardiomegaly. Enlarged heterogeneous partially imaged thyroid gland. - Monitor CO2 - ABG on FiO2 40 (11/02/18): pH 7.34, pCO2 29, pO2 106 - Start Sodium bicarb 650 mg PEG BID - Pulmonary consulted (Neville) - Pain Mgmt Consulted: Dr Clayton 5mg Ketamine IVP Anemia 2/2 to Chronic Diseases +/- Dysfunctional uterine bleeding, stable -Hg stable -Stool occult blood negative -Iron normal, TIBC low, Iron saturation normal, Ferritin normal -B12, folate normal -Vaginal US: thickened endometrium -Transfused pRBC: 1 unit 07/22/18, 2 units 08/13/18, 1 unit 08/17/18, 1 unit 08/23/18, 2 unit 11/15/18 -OBGYN consulted (Gilberto)- no hysterectomy -During transfusion pt went hypotensive 77/41, PRBC adm rate increased from 120 to 150, 1L NS bolus w/ albumin IVPB on other arm -BP 92/54, pt is normal in this range VRE UTI - afebrile - UCx shows VRE sensitive to linezolid - Infectious disease recommends IV abx for total 3 weeks - cefepime IVPB 10/27 for P. aeruginosa Zyvox added 11/17 for VRE in Urine Sacral Decubitus Ulcer, stage 2 - Wound care consulted, f/u recs extension to anus: this will require frequent cleaning - recommending repositioning q2hrs - new specialty mattress ordered - [facility] w/ optiforam - feeds increased for greater protein intake Upper Extremity swelling bilateral - f/u upper ext dopplers : neg - holding anticoags due to vaginal bleeding - Mid Line in place, PICC pending BCs Distended abdomen -Resolving, pt had BM -AXR (10/28/18): Nonspecific bowel gas pattern with relative paucity of bowel gas. -Repeat AXR (11/02/18): Normal bowel gas pattern. -PEG tube feeds goal rate 40:Pulmocare -Reglan discontinued due to interaction with zyvox -Miralax PEG BID -Simethicone 80 mg PEG QID Pleural effusions- s/p bilateral chest tubes - Multiple chest tubes and thoracenteses for effusions, most recent s/p bilateral chest tubes 10/27 - Pleural fluid from 10/13/18 - WBC 794, RBC 2083, tot cells 100, neutrophils 87% - Tot prot<3, LDH 145, glucose 146 - CT chest (10/27/18): Placment of 8.5 Finnish pigtail drainage catheter within r ight and left pleural space - Most recent CXR (10/31/18): Status post bilateral chest tube placements. Marked reduction of bilateral pleural effusions, commensurate re-expansion of both lungs. - Repeat CXR 11/02: Worsening pulmonary edema - IR consulted (Partha) - Pulmonology consulted (Neville) Thyroid disorder - Thyroid US (07/16/18): Heterogeneous thyroid echotexture. Numerous nodules as described above. Suggest percutaneous biopsy of the following suspicious nodules; 1.8 x 0.9 x 1.7 cm right lower pole nodule, 1.0 x 0.7 x 0.9 cm right upper pole lesion with intracystic vascular nodule, complex left upper pole nodule measuring 2.1 x 1.5 x 1.8 cm. - Note: Initial thyroid studies taken before amiodarone was given- this is NOT amiodarone induced - TSH <0.02 in 07/2018, 10/31/18 TSH 18.10 - Free T4 >3 in 07/2018, 10/31/2018 free T4 0.24 - wnl TSH, free T4 on 11/08/18 - Methimazole to 10 mg PO Q8H - Off Propranolol 5 mg PO TID due to hypotension - Endocrinology consulted (Irwin) Hypotension -improved, stable -remains stable in 100s-120s/50s-60s -Monitor albumin, administer PRN doses -Midodrine 10 mg PEG TID Atrial fibrillation w/ RVR, resolved -EKG (10/29/18): Afib HR 130 -Cardiology consulted (Nolan) Deconditioning -Patient needs aggressive continued PT/OT- PT signed off as patient does not follow directions -Nursing and move patient OOB to chair -Social work note (08/09/18): patient is undocumented, has not health insurance, discharge planning will be at home with Septic Shock 2/2 Pneumonia and Urinary Tract Infection (VRE and Pseudomonas)- urinary retention -Off pressors (previously on 3) -Afebrile since 10/21/18 -Procal 1.49 on 11/01/18, 0.66 on 10/21/18 -CXR (11/02/18): worsening pulmonary edema -Most recent blood cultures negative -Most recent urine cultures (10/21/18) +VRE/Pseudomonas, suspect patient likely colonized -Mcintyre in place -Midline removed 11/01/18 -PICC team unable to insert PICC line 11/13/18 -Flomax 0.4 mg PEG daily -Cefepime 1 g Q12H- started 10/27 -ID consulted (Vinod) -neg bc -0.93 procal Apical thrombus -Echo (07/07/18) before cardiac arrest: EF 40-45% -Echo (07/10/19) after cardiac arrest: EF 40%, LV large apical hypokinesis, large 30x20 mm soft tissue apical sessile mass suggestive of thrombus -Echo (08/17/19): LV clot, no significant change -Too high risk for HUBERT -Previously on heparin gtt, Eliquis- stopped due to anemia and vaginal bleeding -ASA 81 mg PEG daily LLE Deep vein thrombosis s/p IVC filter -Venous Doppler (07/18/18): Acute thrombosis of the left common femoral and femoral veins with severe reduction of the venous return -Resolved on repeat imaging -Previously on heparin gtt, Eliquis- stopped due to anemia and vaginal bleeding -s/p IVC filter on 08/23/18 -Vasc surgery consulted (Vicky) T2DM -A1c: 7.8 -Hypoglycemia protocol -Accuchecks Q6H Vtach- Code blue x2 (07/10/18) - Previously on amiodarone ggt - Cardiology consulted (Nolan) NEHA, resolved - Required dialysis early in admission before code blues - Monitor BUN, Cr Shock liver, resolved -Hepatitis panel negative -HIV negative -Monitor LFTs PPx, Diet, Disposition -DVT ppx: scds -GI ppx: protonix 40 via PEG q12 -Tube feeds -Pulmocare goal rate 50 mL/hr- feeds restarted 2/2 -Lactobacillus 1 cap PEG Q12H -Multivitamin PEG daily -Vitamin C 1,000 PEG daily -Vitamin A&E Dispo: Continue Abx for tx of VRE in urine and p. aeruginosa in trach aspirate. Infectious disease on board. Pt has been made DNR with POLST form for comfort care in place. stated that he was going to be speaking with patient's family to discuss with them, and then will decide on possibility of hospice. Pastoral care will see pt's today. Case discussed with Dr. Leahy. <Saira Leahy V - Last Filed: 11/28/18 15:19> Objective - Vital Signs/Intake and Output Vital Signs (last 24 hours): Temp Pulse Resp BP Pulse Ox 99.4 F 88 20 92/54 L 100 11/28/18 08:00 11/28/18 08:00 11/28/18 08:00 11/28/18 08:00 11/28/18 08:00 Intake and Output: 11/28/18 11/28/18 06:59 18:59 Intake Total 2150 300 Output Total 2350 1125 Balance -200 -825 - Medications Medications: Current Medications Aspirin (Aspirin Chewable) 81 mg GT DAILY [facility] Last Admin: 11/14/18 11:00 Dose: 81 mg Dextrose (Dextrose 50% Inj) 0 ml IVP .STAT PRN; Protocol PRN Reason: Hypoglycemia Protocol Dextrose (Glutose 15) 0 gm PO .ONCE PRN; Protocol PRN Reason: Hypoglycemia Protocol Emollient Ointment (Vaseline Oint) 5 gm TOP DAILY [facility] Last Admin: 11/28/18 09:39 Dose: 5 gm Glucagon (Glucagen Diagnostic Kit) 0 mg IM .STAT PRN; Protocol PRN Reason: Hypoglycemia Protocol Cefepime HCl 1 gm/ Dextrose 50 mls @ 100 mls/hr IVPB Q12H [facility]; Protocol Last Admin: 11/28/18 08:36 Dose: 100 mls/hr Linezolid (Zyvox 600mg/300ml D5w) 600 mg in 300 mls @ 200 mls/hr IVPB Q12H [facility]; Protocol Last Admin: 11/28/18 05:35 Dose: 200 mls/hr Methimazole (Tapazole) 10 mg PO Q8 [facility] Last Admin: 11/28/18 06:13 Dose: 10 mg Midodrine (Proamatine) 10 mg PO TID [facility] Last Admin: 11/28/18 13:34 Dose: 10 mg Pantoprazole Sodium (Protonix Susp) 40 mg GT Q12H [facility] Last Admin: 11/28/18 08:52 Dose: 40 mg Simethicone (Mylicon Chew Tab) 80 mg PO QID [facility] Last Admin: 11/28/18 13:33 Dose: 80 mg Sodium Bicarbonate (Sodium Bicarbonate Tab) 650 mg PO BID [facility] Last Admin: 11/28/18 09:40 Dose: 650 mg Sodium Polystyrene Sulfonate (Kayexalate Susp) 15 gm PO ONCE ONE Stop: 11/28/18 15:12 - Labs Labs: 11/28/18 11:26 11/28/18 11:26 PT 13.3 SECONDS (9.7-12.2) H 10/23/18 06:05 INR 1.2 10/23/18 06:05 APTT 23 SECONDS (21-34) 10/02/18 06:10 Assessment and Plan (1) Septic shock Status: Acute (2) Acute respiratory failure Status: Acute (3) Urinary tract infection Status: Acute (4) Acute renal failure Status: Acute (5) Aspiration pneumonia Status: Acute (6) Diabetes mellitus Status: Chronic (7) Ventricular arrhythmia Status: Acute (8) Hyperthyroidism Status: Acute (9) Anemia Status: Acute (10) Prophylactic measure Status: Acute Attending/Attestation - Attestation I have personally seen and examined this patient.: Yes I have fully participated in the care of the patient.: Yes I have reviewed all pertinent clinical information, including history, physical exam and plan: Yes Notes (Text): Patient seen, examined, and case discussed with day-time resident. patient transferred to the 3rd floor general medical floor in contact isolation room after an extended stay in the stepdown unit in the intensive care unit. This is a 53-year-old female with a prolonged hospitalization for treatment for septic shock complicated by both pneumonia and urinary tract infections, anoxic encephalopathy likely secondary to 2 cardiac arrest during hospitalization, hyperthyroidism which had been controlled on methimazole, which is on hold until nov 05, shock liver which is now recovered, history of apical thrombus which is currently being treated with aspirin and is not on anticoagulation secondary to worsening heavy vaginal bleeding which required multiple blood transfusions during hospitalization, history of left lower extremity DVT which falling 1 month of anticoagulation has radiographically disappeared on repeat ultrasound and has now an IVC filter, as well as diabetes, vitamin D deficiency. The most recent update is that patient's so he will had a discussion on November 24 and has noted to make the patient DO NOT RESUSCITATE as well as a POLST which is attached to the chart to not promote any suffering for the patient. I did reaffirm patient's DNR with the yesterday as well as today. The who is been present during every day of patient's hospitalization has asked me in terms of hope in terms of improvement of symptoms I did give him my honest opinion that I do not see her improving beyond her current state. I also did indicate to him that in my prior visits with her she is usually much more interactive with him and since yesterday and today have seen her more or less crying and visibly in pain especially when I touch her over the legs and over the backside as well. indicates to me that he does not want her to suffer and he still would need to deal with speaking with her relations in [facility] in terms of her current condition. He has asked me in terms of hope for the patient in terms of improvement and they did empathize with him. I did empathize with him since I know that this is not an easy decision and I am aware that he is essentially the only family that he has with a 20+ year marriage no children and they are initially visiting here with all the events during this hospitalization have occurred. I know in and I am aware that this will be a difficult path for the and patient. I did consult banana grader yesterday given that her will need incredible amounts of support they did update Dr. Lozada who the has a good relationship with in regards to DNR. The does agree that we should not be taking frequent blood work from her since she is visibly in pain each time. Based on blood work today I did increase the tube feeding in terms of fluid flushes from 250 to 300cc every 6 and a dose of Kayexalate for the potassium 5.4. Please know I did have this conversation with patient's nurse Amy at bedside with the and my resident nursing staff is [place] where to be supportive especially my circumstances. Please note situation is also difficult since he is currently not working in this country he is here visiting himself is here every single day to provide whatever support he can for his . Patient remains on IV antibiotic therapy. Patient has been on Maxipime since October 27 for pseudomonal pneumonia. As well as she has been on Zyvox IV since at least November 13 for VRE UTI given fever of 100.9 Fahrenheit. It is quite difficult for the patient to clear her infections. She is very visibly cachectic low albumin and is only PEG tube dependent on her feeds.
[2018-11-28] MEDS: Pantoprazole 40 mg Susp UD GT SCH ×2 (08:52→22:00)
[2018-11-28] MEDS: Petrolatum Oint Foilpak (5 gm) TOP SCH (09:39)
[2018-11-28] MEDS: Simethicone 80 mg Chewtab PO SCH ×4 (09:39→22:23)
[2018-11-28 11:35] LABS: BASO % 0.2 % (0.0-2.0); EOS # 1.2 K/uL (0.0-0.7); EOS % 13.7 % (0.0-4.0); HEMOGLOBIN 8.1 g/dL (11.0-16.0); LYMPH # 0.7 K/uL (1.0-4.3); LYMPH % 7.6 % (20.0-40.0); MEAN CELL VOLUME 88.4 fL (81.0-99.0); MEAN CORPUSCULAR HEMOGLOBIN 29.8 pg (27.0-31.0); MEAN CORPUSCULAR HGB CONC 33.7 g/dL (33.0-37.0); MEAN PLATELET VOLUME 8.6 fL (7.2-11.7); MONO # 0.5 K/uL (0.0-0.8); MONO % 5.4 % (0.0-10.0); NEUT # 6.6 K/uL (1.8-7.0); NEUT % 73.1 % (50.0-75.0); NRBC % 0.1 % (0.0-2.0); PLATELET COUNT 234 K/uL (130-400); RBC 2.72 Mil/uL (3.80-5.20); RED CELL DISTRIBUTION WIDTH 18.2 % (11.5-14.5)
[2018-11-28 12:03] LABS: ALB/GLOB RATIO 0.8 (1.0-2.1); CALCIUM 7.5 mg/dl (8.6-10.4)
[2018-11-28 12:33] LABS: EOSINOPHIL 22 % (0-4); LYMPHOCYTE 6 % (20-40); MONOCYTE 3 % (0-10); NEUTROPHIL 69 % (50-75); TOTAL CELLS COUNTED 100
[2018-11-28 12:34] LABS: ANISOCYTOSIS SLIGHT; HYPOCHROMIC SLIGHT; PLATELET ESTIMATE NORMAL (NORMAL); POIKILOCYTOSIS SLIGHT
[2018-11-28 12:35] LABS: PLATELET CLUMPS PRESENT; TARGET CELLS SLIGHT; TOXIC GRANULATION PRESENT
[2018-11-28] MEDS ORDERED: Sod Polystyrene Sulf 15 gm/60 ml Susp PO ONE (15:11)
[2018-11-29] MEDS: Linezolid 600 mg in D5W 300 ml 600 MG/300 ML BAG IVPB SCH (05:35)
--- NOTE | 2018-11-29 07:07 | CP.PCM.PN ---
<Evaristo Barber - Last Filed: 11/29/18 14:50> Subjective - Date & Time of Evaluation Date of Evaluation: 11/29/18 Time of Evaluation: 09:30 - Subjective Subjective: PGY-1 Medicine Progress Note for Dr. Leahy Patient seen and examined at bedside. No acute changes overnight. 12 pt ROS unattainable due to patient's clinical status. Pt did not produce any drainage from either chest tube overnight. PEG tube feeds stopped around noon yesterday due to some regurgitation, but resumed in the evening and currently at 50 cc/hr with 300 mL water flushes q6. Objective - Vital Signs/Intake and Output Vital Signs (last 24 hours): Temp Pulse Resp BP Pulse Ox 98.8 F 81 20 127/64 100 11/29/18 00:00 11/29/18 00:00 11/29/18 00:00 11/29/18 00:00 11/29/18 00:00 Intake and Output: 11/29/18 11/29/18 06:59 18:59 Intake Total 1820 Output Total 1135 Balance 685 - Medications Medications: Current Medications Aspirin (Aspirin Chewable) 81 mg GT DAILY [facility] Last Admin: 11/14/18 11:00 Dose: 81 mg Dextrose (Dextrose 50% Inj) 0 ml IVP .STAT PRN; Protocol PRN Reason: Hypoglycemia Protocol Dextrose (Glutose 15) 0 gm PO .ONCE PRN; Protocol PRN Reason: Hypoglycemia Protocol Emollient Ointment (Vaseline Oint) 5 gm TOP DAILY [facility] Last Admin: 11/28/18 09:39 Dose: 5 gm Glucagon (Glucagen Diagnostic Kit) 0 mg IM .STAT PRN; Protocol PRN Reason: Hypoglycemia Protocol Cefepime HCl 1 gm/ Dextrose 50 mls @ 100 mls/hr IVPB Q12H [facility]; Protocol Last Admin: 11/28/18 21:15 Dose: 100 mls/hr Linezolid (Zyvox 600mg/300ml D5w) 600 mg in 300 mls @ 200 mls/hr IVPB Q12H [facility]; Protocol Last Admin: 11/29/18 05:35 Dose: 200 mls/hr Methimazole (Tapazole) 10 mg PO Q8 [facility] Last Admin: 11/29/18 05:39 Dose: 10 mg Midodrine (Proamatine) 10 mg PO TID [facility] Last Admin: 11/28/18 18:43 Dose: 10 mg Pantoprazole Sodium (Protonix Susp) 40 mg GT Q12H [facility] Last Admin: 11/28/18 22:00 Dose: 40 mg Simethicone (Mylicon Chew Tab) 80 mg PO QID [facility] Last Admin: 11/28/18 22:23 Dose: 80 mg Sodium Bicarbonate (Sodium Bicarbonate Tab) 650 mg PO BID [facility] Last Admin: 11/28/18 18:42 Dose: 650 mg - Labs Labs: 11/28/18 11:26 11/28/18 11:26 PT 13.3 SECONDS (9.7-12.2) H 10/23/18 06:05 INR 1.2 10/23/18 06:05 APTT 23 SECONDS (21-34) 10/02/18 06:10 - Additional Findings Additional findings: - Constitutional Appears: Chronically Ill - Head Exam Head Exam: ATRAUMATIC, NORMAL INSPECTION, NORMOCEPHALIC - Eye Exam Eye Exam: Nystagmus, Scleral icterus, Lacrimation noted bilaterally - ENT Exam ENT Exam: Normal Exam - Neck Exam Additional comments: trach with vent in place; C/D/I; no active bleeding or purulent discharge - Respiratory Exam Respiratory Exam: Rhonchi, NORMAL BREATHING PATTERN Additional comments: 2 chest tubes - Cardiovascular Exam Cardiovascular Exam: REGULAR RHYTHM, +S1, +S2 - GI/Abdominal Exam GI & Abdominal Exam: Soft, Normal Bowel Sounds. absent: Distended, Firm, Guarding, Rigid, Tenderness, Rebound Additional comments: PEG tube in place w dressing c/d/i; no signs of infection or bleeding Dressing date change is 11/27 - Exam Additional comments: mcintyre cath in place. Rectoseal in place as well. - Extremities Exam Extremities Exam: Normal Capillary Refill, Pedal Edema. absent: Calf Tenderness - Neurological Exam Neurological Exam: Alert, Awake - Skin Skin Exam: Dry, Intact, Normal Color, Warm. Stage 2 sacral ulcer is well healing, no signs of infection. Assessment and Plan - Assessment and Plan (Free Text) Assessment: This is a 52 yo female originally admitted to the ICU for septic shock 2/2 to PNA/UTI worsened by cardiac arrest and anoxic brain injury. Patient found to have apical thrombus in heart. Patient is s/p trach and PEG. Patient still unable to be weaned off vent. She has had multiple complications, including DVT and infections (PNA, UTI). s/p IVC filter 08/23. s/p multiple chest tube placements Sep 19-Oct 21. s/p LP 09/15. Patient has shown minimal improvement of cognitive function during the course of this hospitalization. Patient does not have any insurance and therefore cannot be placed in rehab/NH. Multiple conversations with regarding poor prognosis- Code status now DNR. Palliative and pastoral care have been on board. Plan: Altered mental status/Encephalopathy- suspect anoxic encephalopathy -Code Blue 07/10 and 07/20 -Moved to med surg floor 11/08 -Chest tubes x2 in place -Off sedation -Modafinil 50 mg PO daily -CT head (08/28/18): No hemorrhage or midline shift -MRI brain (09/08/18): No definite mass effect or suspicious extra axial collection. No evidence of acute or subacute brain infarction at this time. Borderline pattern of hydrocephalus. -LP 09/15/18: normal opening pressure - LDH 30, glucose 69, tot prot 67 - CSF Cx: no growth - Other CSF studies pending- called lab 11/01, they will contact [facility] for update -Neurology consulted (George/Ankit) Acute respiratory failure- s/p trach on vent, unable to wean - Tracheostomy 07/24/18, s/p bronchoscopy 08/23 - Patient had tolerated trach collars in early Aug 2018; however she has been on vent to trach since. Fi02: 40% - Bronchoscopy (08/23/18) by Dr. Lozada - Bronchial washings: Pseudomonas Aeruginosa - Fungal Cx: negative - Mycobacterial Cx: negative - Chest physiotherapy increased secretions, but pt is being suctioned by RN regularly - Most recent CT chest (10/27/18): Large bilateral pleural effusions and associated consolidations. Trace pericardial effusion. Borderline cardiomegaly. Enlarged heterogeneous partially imaged thyroid gland. - Monitor CO2 - ABG on FiO2 40 (11/02/18): pH 7.34, pCO2 29, pO2 106 - Sodium bicarb 650 mg PEG BID - Pulmonary consulted (Neville) - Pain Mgmt Consulted: Dr Clayton 5mg Ketamine IVP Anemia 2/2 to Chronic Diseases +/- Dysfunctional uterine bleeding, stable -Hg stable -Stool occult blood negative -Iron normal, TIBC low, Iron saturation normal, Ferritin normal -B12, folate normal -Vaginal US: thickened endometrium -Transfused pRBC: 1 unit 07/22/18, 2 units 08/13/18, 1 unit 08/17/18, 1 unit 08/23/18, 2 unit 11/15/18 -OBGYN consulted (Gilberto)- no hysterectomy -During transfusion pt went hypotensive 77/41, PRBC adm rate increased from 120 to 150, 1L NS bolus w/ albumin IVPB on other arm -BP 98/49, pt is normally in this range VRE UTI - afebrile - UCx shows VRE sensitive to linezolid - Infectious disease recommends IV abx for total 3 weeks - cefepime IVPB 10/27 for P. aeruginosa Zyvox added 11/17 for VRE in Urine Sacral Decubitus Ulcer, stage 2 - Wound care consulted, f/u recs extension to anus: this will require frequent cleaning - recommending repositioning q2hrs - new specialty mattress ordered - medihoney w/ optiforam - feeds increased for greater protein intake Upper Extremity swelling bilateral - upper ext dopplers : neg - holding anticoags due to vaginal bleeding - Mid Line in place, PICC pending BCs Distended abdomen -Resolving, pt had BM -AXR (10/28/18): Nonspecific bowel gas pattern with relative paucity of bowel gas. -Repeat AXR (11/02/18): Normal bowel gas pattern. -PEG tube feeds goal rate 40:Pulmocare -Reglan discontinued due to interaction with zyvox -Miralax PEG BID -Simethicone 80 mg PEG QID Pleural effusions- s/p bilateral chest tubes - Multiple chest tubes and thoracenteses for effusions, most recent s/p bilateral chest tubes 10/27 - Pleural fluid from 10/13/18 - WBC 794, RBC 2083, tot cells 100, neutrophils 87% - Tot prot<3, LDH 145, glucose 146 - CT chest (10/27/18): Placment of 8.5 [place] pigtail drainage catheter within right and left pleural space - Most recent CXR (10/31/18): Status post bilateral chest tube placements. Marked reduction of bilateral pleural effusions, commensurate re-expansion of both lungs. - Repeat CXR 11/02: Worsening pulmonary edema - IR consulted (Partha) - Pulmonology consulted (Neville) Will f/u on need for chest tubes since no drainage overnight Thyroid disorder - Thyroid US (07/16/18): Heterogeneous thyroid echotexture. Numerous nodules as described above. Suggest percutaneous biopsy of the following suspicious nodules; 1.8 x 0.9 x 1.7 cm right lower pole nodule, 1.0 x 0.7 x 0.9 cm right upper pole lesion with intracystic vascular nodule, complex left upper pole nodule measuring 2.1 x 1.5 x 1.8 cm. - Note: Initial thyroid studies taken before amiodarone was given- this is NOT amiodarone induced - TSH <0.02 in 07/2018, 10/31/18 TSH 18.10 - Free T4 >3 in 07/2018, 10/31/2018 free T4 0.24 - wnl TSH, free T4 on 11/08/18 - Methimazole to 10 mg PO Q8H - Off Propranolol 5 mg PO TID due to hypotension - Endocrinology consulted (Irwin) Hypotension -improved, stable -remains stable in 100s-120s/50s-60s -Monitor albumin, administer PRN doses -Midodrine 10 mg PEG TID Atrial fibrillation w/ RVR, resolved -EKG (10/29/18): Afib HR 130 -Cardiology consulted (Nolan) Deconditioning -Patient needs aggressive continued PT/OT- PT signed off as patient does not follow directions -Nursing and move patient OOB to chair -Social work note (08/09/18): patient is undocumented, has not health insurance, discharge planning will be at home with Septic Shock 2/2 Pneumonia and Urinary Tract Infection (VRE and Pseudomonas)- urinary retention -Off pressors (previously on 3) -Afebrile since 10/21/18 -Procal 1.49 on 11/01/18, 0.66 on 10/21/18 -CXR (11/02/18): worsening pulmonary edema -Most recent blood cultures negative -Most recent urine cultures (10/21/18) +VRE/Pseudomonas, suspect patient likely colonized -Mcintyre in place -Midline removed 11/01/18 -PICC team unable to insert PICC line 11/13/18 -Flomax 0.4 mg PEG daily -Cefepime 1 g Q12H- started 10/27 -ID consulted (Vinod) -neg BCx to date Apical thrombus -Echo (07/07/18) before cardiac arrest: EF 40-45% -Echo (07/10/19) after cardiac arrest: EF 40%, LV large apical hypokinesis, large 30x20 mm soft tissue apical sessile mass suggestive of thrombus -Echo (08/17/19): LV clot, no significant change -Too high risk for HUBERT -Previously on heparin gtt, Eliquis- stopped due to anemia and vaginal bleeding -ASA 81 mg PEG daily LLE Deep vein thrombosis s/p IVC filter -Venous Doppler (07/18/18): Acute thrombosis of the left common femoral and femoral veins with severe reduction of the venous return -Resolved on repeat imaging -Previously on heparin gtt, Eliquis- stopped due to anemia and vaginal bleeding -s/p IVC filter on 08/23/18 -Vasc surgery consulted (Vicky) T2DM -A1c: 7.8 -Hypoglycemia protocol -Accuchecks Q6H Vtach- Code blue x2 (07/10/18) - Previously on amiodarone ggt - Cardiology consulted (Nolan) NEHA, resolved - Required dialysis early in admission before code blues - Monitor BUN, Cr Shock liver, resolved -Hepatitis panel negative -HIV negative -Monitor LFTs PPx, Diet, Disposition -DVT ppx: scds -GI ppx: protonix 40 via PEG q12 -Tube feeds -Pulmocare goal rate 50 mL/hr- feeds restarted 2/2 -Lactobacillus 1 cap PEG Q12H -Multivitamin PEG daily -Vitamin C 1,000 PEG daily -Vitamin A&E Dispo: Continue Abx for tx of VRE in urine and p. aeruginosa in trach aspirate. Infectious disease on board. Pt has been made DNR with POLST form for comfort care in place. stated that he was going to be speaking with patient's family to discuss with them, and then will decide on possibility of hospice. Pastoral care to see and talk with . Case discussed with Dr. Leahy. <Saira Leahy V - Last Filed: 11/29/18 22:49> Objective - Vital Signs/Intake and Output Vital Signs (last 24 hours): Temp Pulse Resp BP Pulse Ox 97.7 F 75 18 105/56 L 100 11/29/18 16:00 11/29/18 16:00 11/29/18 16:00 11/29/18 16:00 11/29/18 16:00 Intake and Output: 11/29/18 11/30/18 18:59 06:59 Intake Total 400 Output Total 430 Balance -30 - Medications Medications: Current Medications Aspirin (Aspirin Chewable) 81 mg GT DAILY [facility] Last Admin: 11/14/18 11:00 Dose: 81 mg Dextrose (Dextrose 50% Inj) 0 ml IVP .STAT PRN; Protocol PRN Reason: Hypoglycemia Protocol Dextrose (Glutose 15) 0 gm PO .ONCE PRN; Protocol PRN Reason: Hypoglycemia Protocol Emollient Ointment (Vaseline Oint) 5 gm TOP DAILY [facility] Last Admin: 11/29/18 10:48 Dose: 5 gm Glucagon (Glucagen Diagnostic Kit) 0 mg IM .STAT PRN; Protocol PRN Reason: Hypoglycemia Protocol Methimazole (Tapazole) 10 mg PO Q8 [facility] Last Admin: 11/29/18 21:49 Dose: 10 mg Midodrine (Proamatine) 10 mg PO TID [facility] Last Admin: 11/29/18 18:08 Dose: 10 mg Ondansetron HCl (Zofran Inj) 4 mg IVP DAILY@ONCE PRN PRN Reason: Nausea/Vomiting Last Admin: 11/29/18 17:05 Dose: 4 mg Pantoprazole Sodium (Protonix Susp) 40 mg GT Q12H [facility] Last Admin: 11/29/18 21:48 Dose: 40 mg Simethicone (Mylicon Chew Tab) 80 mg PO QID [facility] Last Admin: 11/29/18 21:48 Dose: 80 mg Sodium Bicarbonate (Sodium Bicarbonate Tab) 650 mg PO BID [facility] Last Admin: 11/29/18 18:08 Dose: 650 mg - Labs Labs: 11/28/18 11:26 11/28/18 11:26 PT 13.3 SECONDS (9.7-12.2) H 10/23/18 06:05 INR 1.2 10/23/18 06:05 APTT 23 SECONDS (21-34) 10/02/18 06:10 Assessment and Plan (1) Septic shock Status: Acute (2) Acute respiratory failure Status: Acute (3) Urinary tract infection Status: Acute (4) Acute renal failure Status: Acute (5) Aspiration pneumonia Status: Acute (6) Diabetes mellitus Status: Chronic (7) Ventricular arrhythmia Status: Acute (8) Hyperthyroidism Status: Acute (9) Anemia Status: Acute (10) Prophylactic measure Status: Acute Attending/Attestation - Attestation I have personally seen and examined this patient.: Yes I have fully participated in the care of the patient.: Yes I have reviewed all pertinent clinical information, including history, physical exam and plan: Yes Notes (Text): Patient seen, examined, and case discussed with day-time resident. patient transferred to the 3rd floor general medical floor in contact isolation room after an extended stay in the stepdown unit in the intensive care unit. This is a 53-year-old female with a prolonged hospitalization for treatment for septic shock complicated by both pneumonia and urinary tract infections, anoxic encephalopathy likely secondary to 2 cardiac arrest during hospitalization, hyperthyroidism which had been controlled on methimazole, which is on hold until nov 05, shock liver which is now recovered, history of apical thrombus which is currently being treated with aspirin and is not on anticoagulation secondary to worsening heavy vaginal bleeding which required multiple blood transfusions during hospitalization, history of left lower extremity DVT which falling 1 month of anticoagulation has radiographically disappeared on repeat ultrasound and has now an IVC filter, as well as diabetes, vitamin D deficiency. Noted significant event today patient noted to be throwing up likely tube feedings to be feedings were held. Patient evaluated in the evening no new meetings were held we will start low rate at 10 mL/h. Resident has follow-up with with Dr. Brock IV antibiotics were discontinued today since patient remains afebrile. Note there is a drug- drug drug interaction with Zyvox and Reglan. He will need to follow-up with in regards to especially regards future hospice care when he has spoken with patient's relation.
[2018-11-29] MEDS: Pantoprazole 40 mg Susp UD GT SCH ×2 (10:47→21:48)
[2018-11-29] MEDS: Petrolatum Oint Foilpak (5 gm) TOP SCH (10:48)
[2018-11-29] MEDS: Simethicone 80 mg Chewtab PO SCH ×4 (11:05→21:48)
--- NOTE | 2018-11-29 16:06 | CP.PCM.PN ---
Subjective - Date & Time of Evaluation Date of Evaluation: 11/29/18 Time of Evaluation: 08:00 - Subjective Subjective: seen on rounds cultures and labs reviewed patient examined Objective - Vital Signs/Intake and Output Vital Signs (last 24 hours): Temp Pulse Resp BP Pulse Ox 97.9 F 86 20 98/49 L 100 11/29/18 08:00 11/29/18 08:00 11/29/18 08:00 11/29/18 08:00 11/29/18 08:00 Intake and Output: 11/29/18 11/29/18 06:59 18:59 Intake Total 1820 400 Output Total 1135 430 Balance 685 -30 - Medications Medications: Current Medications Aspirin (Aspirin Chewable) 81 mg GT DAILY [facility] Last Admin: 11/14/18 11:00 Dose: 81 mg Dextrose (Dextrose 50% Inj) 0 ml IVP .STAT PRN; Protocol PRN Reason: Hypoglycemia Protocol Dextrose (Glutose 15) 0 gm PO .ONCE PRN; Protocol PRN Reason: Hypoglycemia Protocol Emollient Ointment (Vaseline Oint) 5 gm TOP DAILY [facility] Last Admin: 11/29/18 10:48 Dose: 5 gm Glucagon (Glucagen Diagnostic Kit) 0 mg IM .STAT PRN; Protocol PRN Reason: Hypoglycemia Protocol Cefepime HCl 1 gm/ Dextrose 50 mls @ 100 mls/hr IVPB Q12H [facility]; Protocol Last Admin: 11/29/18 08:33 Dose: 100 mls/hr Linezolid (Zyvox 600mg/300ml D5w) 600 mg in 300 mls @ 200 mls/hr IVPB Q12H [facility]; Protocol Last Admin: 11/29/18 05:35 Dose: 200 mls/hr Methimazole (Tapazole) 10 mg PO Q8 [facility] Last Admin: 11/29/18 14:28 Dose: 10 mg Midodrine (Proamatine) 10 mg PO TID [facility] Last Admin: 11/29/18 14:27 Dose: 10 mg Pantoprazole Sodium (Protonix Susp) 40 mg GT Q12H [facility] Last Admin: 11/29/18 10:47 Dose: 40 mg Simethicone (Mylicon Chew Tab) 80 mg PO QID [facility] Last Admin: 11/29/18 14:28 Dose: 80 mg Sodium Bicarbonate (Sodium Bicarbonate Tab) 650 mg PO BID [facility] Last Admin: 11/29/18 10:46 Dose: 650 mg - Labs Labs: 11/28/18 11:26 11/28/18 11:26 PT 13.3 SECONDS (9.7-12.2) H 10/23/18 06:05 INR 1.2 10/23/18 06:05 APTT 23 SECONDS (21-34) 10/02/18 06:10 - Constitutional Appears: Confused, Cachectic, Chronically Ill - Head Exam Head Exam: NORMOCEPHALIC - Eye Exam Eye Exam: absent: Scleral icterus - ENT Exam ENT Exam: Mucous Membranes Dry - Neck Exam Neck Exam: absent: Lymphadenopathy - Respiratory Exam Respiratory Exam: Decreased Breath Sounds, Prolonged Expiratory Phase, Rhonchi - Cardiovascular Exam Cardiovascular Exam: REGULAR RHYTHM - GI/Abdominal Exam GI & Abdominal Exam: Distended - Rectal Exam Rectal Exam: Deferred - Exam Exam: NORMAL INSPECTION - Extremities Exam Extremities Exam: absent: Pedal Edema - Back Exam Back Exam: absent: CVA tenderness (L), CVA tenderness (R) - Neurological Exam Neurological Exam: Altered - Psychiatric Exam Psychiatric exam: Depressed - Skin Additional comments: + decubiti Assessment and Plan (1) NEHA (acute kidney injury) Status: Acute (2) Acute renal failure Status: Acute (3) Acute respiratory failure Status: Acute (4) Aspiration pneumonia Status: Acute (5) Septic shock Status: Acute (6) Urinary tract infection Status: Acute (7) Diabetes mellitus Status: Chronic (8) Anoxic brain damage Status: Acute - Assessment and Plan (Free Text) Assessment: cont chest tube drainage secretions less
--- NOTE | 2018-11-30 07:07 | CP.PCM.PN ---
Subjective - Date & Time of Evaluation Date of Evaluation: 11/30/18 Time of Evaluation: 07:07 - Subjective Subjective: PGY-1 Medicine Progress Note for Dr. Leahy Patient seen and examined at bedside. No acute changes overnight. 12 pt ROS unattainable due to patient's clinical status. Pt with 5 mL of drainage from right chest pigtail overnight, nothing from left. PEG tube feeds stopped around one pm yesterday due to some regurgitation, but resumed in the evening at 10 cc/hr. She remains at 10 cc/hr. She was noted to be tachycardic early this morning (140s), she will be given Albumin 25% 12.5g x 2 and 1 L NS bolus. Objective - Vital Signs/Intake and Output Vital Signs (last 24 hours): Temp Pulse Resp BP Pulse Ox 99.4 F 82 22 116/61 100 11/30/18 00:00 11/30/18 00:00 11/30/18 00:00 11/30/18 00:00 11/30/18 00:00 Intake and Output: 11/30/18 11/30/18 06:59 18:59 Intake Total 380 Output Total 355 Balance 25 - Medications Medications: Current Medications Aspirin (Aspirin Chewable) 81 mg GT DAILY [facility] Last Admin: 11/14/18 11:00 Dose: 81 mg Dextrose (Dextrose 50% Inj) 0 ml IVP .STAT PRN; Protocol PRN Reason: Hypoglycemia Protocol Dextrose (Glutose 15) 0 gm PO .ONCE PRN; Protocol PRN Reason: Hypoglycemia Protocol Emollient Ointment (Vaseline Oint) 5 gm TOP DAILY [facility] Last Admin: 11/29/18 10:48 Dose: 5 gm Glucagon (Glucagen Diagnostic Kit) 0 mg IM .STAT PRN; Protocol PRN Reason: Hypoglycemia Protocol Methimazole (Tapazole) 10 mg PO Q8 [facility] Last Admin: 11/30/18 05:30 Dose: 10 mg Midodrine (Proamatine) 10 mg PO TID [facility] Last Admin: 11/29/18 18:08 Dose: 10 mg Ondansetron HCl (Zofran Inj) 4 mg IVP DAILY@ONCE PRN PRN Reason: Nausea/Vomiting Last Admin: 11/29/18 17:05 Dose: 4 mg Pantoprazole Sodium (Protonix Susp) 40 mg GT Q12H [facility] Last Admin: 11/29/18 21:48 Dose: 40 mg Simethicone (Mylicon Chew Tab) 80 mg PO QID [facility] Last Admin: 11/29/18 21:48 Dose: 80 mg Sodium Bicarbonate (Sodium Bicarbonate Tab) 650 mg PO BID [facility] Last Admin: 11/29/18 18:08 Dose: 650 mg - Labs Labs: 11/28/18 11:26 11/28/18 11:26 PT 13.3 SECONDS (9.7-12.2) H 10/23/18 06:05 INR 1.2 10/23/18 06:05 APTT 23 SECONDS (21-34) 10/02/18 06:10 - Additional Findings Additional findings: - Constitutional Appears: Chronically Ill - Head Exam Head Exam: ATRAUMATIC, NORMAL INSPECTION, NORMOCEPHALIC - Eye Exam Eye Exam: Nystagmus, Scleral icterus, Lacrimation noted bilaterally - ENT Exam ENT Exam: Normal Exam - Neck Exam Additional comments: trach with vent in place; C/D/I; no active bleeding or purulent discharge - Respiratory Exam Respiratory Exam: Rhonchi, NORMAL BREATHING PATTERN Additional comments: 2 chest tubes - Cardiovascular Exam Cardiovascular Exam: tachycardia, +S1, +S2 - GI/Abdominal Exam GI & Abdominal Exam: Soft, Normal Bowel Sounds. absent: Distended, Firm, Guarding, Rigid, Tenderness, Rebound Additional comments: PEG tube in place w dressing c/d/i; no signs of infection or bleeding Dressing date change is 11/27 - Exam Additional comments: mcintyre cath in place. Rectoseal in place as well. - Extremities Exam Extremities Exam: Normal Capillary Refill, Pedal Edema. absent: Calf Tenderness - Neurological Exam Neurological Exam: Alert, Awake - Skin Skin Exam: Dry, Intact, Normal Color, Warm. Stage 2 sacral ulcer is well healing, no signs of infection. Assessment and Plan - Assessment and Plan (Free Text) Assessment: This is a 52 yo female originally admitted to the ICU for septic shock 2/2 to PNA/UTI worsened by cardiac arrest and anoxic brain injury. Patient found to have apical thrombus in heart. Patient is s/p trach and PEG. Patient still unable to be weaned off vent. She has had multiple complications, including DVT and infections (PNA, UTI). s/p IVC filter 08/23. s/p multiple chest tube placements Sep 19-Oct 21. s/p LP 09/15. Patient has shown minimal improvement of cognitive function during the course of this hospitalization. Patient does not have any insurance and therefore cannot be placed in rehab/NH. Multiple conversations with regarding poor prognosis- Code status now DNR. Palliative and pastoral care have been on board. Plan: Altered mental status/Encephalopathy- suspect anoxic encephalopathy -Code Blue 07/10 and 07/20 -Moved to [facility] floor 11/08 -Chest tubes x2 in place -Off sedation -Modafinil 50 mg PO daily -CT head (08/28/18): No hemorrhage or midline shift -MRI brain (09/08/18): No definite mass effect or suspicious extra axial collection. No evidence of acute or subacute brain infarction at this time. Borderline pattern of hydrocephalus. -LP 09/15/18: normal opening pressure - LDH 30, glucose 69, tot prot 67 - CSF Cx: no growth - Other CSF studies pending- called lab 11/01, they will contact [facility] for update -Neurology consulted (George/Ankit) Acute respiratory failure- s/p trach on vent, unable to wean - Tracheostomy 07/24/18, s/p bronchoscopy 08/23 - Patient had tolerated trach collars in early Aug 2018; however she has been on vent to trach since. Fi02: 40% - Bronchoscopy (08/23/18) by Dr. Lozada - Bronchial washings: Pseudomonas Aeruginosa - Fungal Cx: negative - Mycobacterial Cx: negative - Chest physiotherapy increased secretions, but pt is being suctioned by RN regularly - Most recent CT chest (10/27/18): Large bilateral pleural effusions and associated consolidations. Trace pericardial effusion. Borderline cardiomegaly. Enlarged heterogeneous partially imaged thyroid gland. - Monitor CO2 - ABG on FiO2 40 (11/02/18): pH 7.34, pCO2 29, pO2 106 - Sodium bicarb 650 mg PEG BID - Pulmonary consulted (Neville) - Pain Mgmt Consulted: Dr Clayton 5mg Ketamine IVP Anemia 2/2 to Chronic Diseases +/- Dysfunctional uterine bleeding, stable -Hg stable -Stool occult blood negative -Iron normal, TIBC low, Iron saturation normal, Ferritin normal -B12, folate normal -Vaginal US: thickened endometrium -Transfused pRBC: 1 unit 07/22/18, 2 units 08/13/18, 1 unit 08/17/18, 1 unit 08/23/18, 2 unit 2/13/19 -OBGYN consulted (Gilberto)- no hysterectomy -During transfusion pt went hypotensive 77/41, PRBC adm rate increased from 120 to 150, 1L NS bolus w/ albumin IVPB on other arm -BP 98/49, pt is normally in this range VRE UTI - afebrile - UCx shows VRE sensitive to linezolid - Infectious disease recommends IV abx for total 3 weeks - cefepime IVPB 10/27 for P. aeruginosa Zyvox added 11/17 for VRE in Urine Sacral Decubitus Ulcer, stage 2 - Wound care consulted, f/u recs extension to anus: this will require frequent cleaning - recommending repositioning q2hrs - new specialty mattress ordered - medihoney w/ optiforam - feeds increased for greater protein intake Upper Extremity swelling bilateral - upper ext dopplers : neg - holding anticoags due to vaginal bleeding - Mid Line in place, PICC pending BCs Distended abdomen -Resolving, pt had BM -AXR (10/28/18): Nonspecific bowel gas pattern with relative paucity of bowel gas. -Repeat AXR (11/02/18): Normal bowel gas pattern. -PEG tube feeds goal rate 40:Pulmocare -Reglan discontinued due to interaction with zyvox Will consider starting reglan in the future as abx have been discontinued (11/29) Pt is on zofran 4 mg IVP Q8h for nausea/vomiting No obvious aspiration pneumonia on CXR; will f/u with official read -Miralax PEG BID -Simethicone 80 mg PEG QID Pleural effusions- s/p bilateral chest tubes - Multiple chest tubes and thoracenteses for effusions, most recent s/p bilateral chest tubes 10/27 - Pleural fluid from 10/13/18 - WBC 794, RBC 2083, tot cells 100, neutrophils 87% - Tot prot<3, LDH 145, glucose 146 - CT chest (10/27/18): Placment of 8.5 Mongolian pigtail drainage catheter within right and left pleural space - Most recent CXR (10/31/18): Status post bilateral chest tube placements. Marked reduction of bilateral pleural effusions, commensurate re-expansion of both lungs. - Repeat CXR 11/02: Worsening pulmonary edema - IR consulted (Partha) - Pulmonology consulted (Neville) Will f/u on need for chest tubes since no drainage overnight Thyroid disorder - Thyroid US (07/16/18): Heterogeneous thyroid echotexture. Numerous nodules as described above. Suggest percutaneous biopsy of the following suspicious nodules; 1.8 x 0.9 x 1.7 cm right lower pole nodule, 1.0 x 0.7 x 0.9 cm right upper pole lesion with intracystic vascular nodule, complex left upper pole nodule measuring 2.1 x 1.5 x 1.8 cm. - Note: Initial thyroid studies taken before amiodarone was given- this is NOT amiodarone induced - TSH <0.02 in 07/2018, 10/31/18 TSH 18.10 - Free T4 >3 in 07/2018, 10/31/2018 free T4 0.24 - wnl TSH, free T4 on 11/08/18 - Methimazole to 10 mg PO Q8H - Off Propranolol 5 mg PO TID due to hypotension - Endocrinology consulted (Irwin) Hypotension -88/58 today, with tachycardia at 140s. Afebrile. Component of dehydration secondary to decreasing of tube feeds due to recent regurgitation She will be given Albumin 25% 12.5g x 2 and 1 L NS bolus. Procalcitonin ordered -Midodrine 10 mg PEG TID Atrial fibrillation w/ RVR, resolved -EKG (10/29/18): Afib HR 130 -Cardiology consulted (Nolan) Deconditioning -Patient needs aggressive continued PT/OT- PT signed off as patient does not follow directions -Nursing and move patient OOB to chair -Social work note (08/09/18): patient is undocumented, has not health insurance, discharge planning will be at home with Septic Shock 2/2 Pneumonia and Urinary Tract Infection (VRE and Pseudomonas)- urinary retention -Off pressors (previously on 3) -Afebrile since 10/21/18 -Procal 1.49 on 11/01/18, 0.66 on 10/21/18 -CXR (11/02/18): worsening pulmonary edema -Most recent blood cultures negative -Most recent urine cultures (10/21/18) +VRE/Pseudomonas, suspect patient likely colonized -Mcintyre in place -Midline removed 11/01/18 -PICC team unable to insert PICC line 11/13/18 -Flomax 0.4 mg PEG daily -Cefepime 1 g Q12H- started 10/27 -ID consulted (Vinod) -neg BCx to date Apical thrombus -Echo (07/07/18) before cardiac arrest: EF 40-45% -Echo (07/10/19) after cardiac arrest: EF 40%, LV large apical hypokinesis, large 30x20 mm soft tissue apical sessile mass suggestive of thrombus -Echo (08/17/19): LV clot, no significant change -Too high risk for HUBERT -Previously on heparin gtt, Eliquis- stopped due to anemia and vaginal bleeding -ASA 81 mg PEG daily LLE Deep vein thrombosis s/p IVC filter -Venous Doppler (07/18/18): Acute thrombosis of the left common femoral and femoral veins with severe reduction of the venous return -Resolved on repeat imaging -Previously on heparin gtt, Eliquis- stopped due to anemia and vaginal bleeding -s/p IVC filter on 08/23/18 -Vasc surgery consulted (Vicky) T2DM -A1c: 7.8 -Hypoglycemia protocol -Accuchecks Q6H Vtach- Code blue x2 (07/10/18) - Previously on amiodarone ggt - Cardiology consulted (Nolan) NEHA, resolved - Required dialysis early in admission before code blues - Monitor BUN, Cr Shock liver, resolved -Hepatitis panel negative -HIV negative -Monitor LFTs PPx, Diet, Disposition -DVT ppx: scds -GI ppx: protonix 40 via PEG q12 -Tube feeds -Pulmocare at 10 mL per hour due to regurgitation -Lactobacillus 1 cap PEG Q12H -Multivitamin PEG daily -Vitamin C 1,000 PEG daily -Vitamin A&E Dispo: Continue Abx for tx of VRE in urine and p. aeruginosa in trach aspirate. Infectious disease on board. Pt has been made DNR with POLST form for comfort care in place. stated that he was going to be speaking with patient's family to discuss with them, and then will decide on possibility of hospice. Pastoral care to see and talk with .
[2018-11-30] MEDS: Petrolatum Oint Foilpak (5 gm) TOP SCH (09:12)
[2018-11-30] MEDS: Pantoprazole 40 mg Susp UD GT SCH ×2 (09:12→21:45)
[2018-11-30] MEDS: Simethicone 80 mg Chewtab PO SCH ×4 (09:12→21:44)
[2018-11-30] MEDS ORDERED: Sodium Chloride 0.9% 1,000 ML IV SCH (10:15)
[2018-11-30] MEDS: Sodium Chloride 0.9% 500 ML IV SCH ×3 (13:43→15:15)
[2018-11-30] MEDS ORDERED: Albumin Human 25% (12.5 gm/50 ml) IV ONE ×2 (13:45→14:30)
--- NOTE | 2018-12-01 07:15 | CP.PCM.PN ---
Subjective - Date & Time of Evaluation Date of Evaluation: 12/01/18 Time of Evaluation: 09:00 - Subjective Subjective: PGY-[address] Leahy service Patient is seen and examined at bedside. no acute events overnight as per nurse, no more regurgitation noted. PAtient is on comfort measures at this time with continuing wound care. Patient is awake but not oriented, observed to be moving head. no family at bedside. ROS unttainable due to patient's clinical status. Objective - Vital Signs/Intake and Output Vital Signs (last 24 hours): Temp Pulse Resp BP Pulse Ox 98.0 F 80 20 115/70 100 12/01/18 00:00 12/01/18 00:00 12/01/18 00:00 12/01/18 00:00 12/01/18 00:00 Intake and Output: 12/01/18 12/01/18 06:59 18:59 Intake Total 1220 Output Total 625 Balance 595 - Medications Medications: Current Medications Aspirin (Aspirin Chewable) 81 mg GT DAILY [facility] Last Admin: 11/30/18 09:12 Dose: 81 mg Dextrose (Dextrose 50% Inj) 0 ml IVP .STAT PRN; Protocol PRN Reason: Hypoglycemia Protocol Dextrose (Glutose 15) 0 gm PO .ONCE PRN; Protocol PRN Reason: Hypoglycemia Protocol Emollient Ointment (Vaseline Oint) 5 gm TOP DAILY [facility] Last Admin: 11/30/18 09:12 Dose: 5 gm Glucagon (Glucagen Diagnostic Kit) 0 mg IM .STAT PRN; Protocol PRN Reason: Hypoglycemia Protocol Methimazole (Tapazole) 10 mg PO Q8 [facility] Last Admin: 12/01/18 05:45 Dose: 10 mg Midodrine (Proamatine) 10 mg PO TID [facility] Last Admin: 11/30/18 17:43 Dose: 10 mg Ondansetron HCl (Zofran Inj) 4 mg IVP DAILY@ONCE PRN PRN Reason: Nausea/Vomiting Last Admin: 11/29/18 17:05 Dose: 4 mg Pantoprazole Sodium (Protonix Susp) 40 mg GT Q12H [facility] Last Admin: 11/30/18 21:45 Dose: 40 mg Simethicone (Mylicon Chew Tab) 80 mg PO QID [facility] Last Admin: 11/30/18 21:44 Dose: 80 mg Sodium Bicarbonate (Sodium Bicarbonate Tab) 650 mg PO BID [facility] Last Admin: 11/30/18 17:44 Dose: 650 mg - Labs Labs: 11/28/18 11:26 11/28/18 11:26 PT 13.3 SECONDS (9.7-12.2) H 10/23/18 06:05 INR 1.2 10/23/18 06:05 APTT 23 SECONDS (21-34) 10/02/18 06:10 - Constitutional Appears: Chronically Ill - Eye Exam Eye Exam: Scleral icterus - Neck Exam Additional comments: trach with vent in place, C/D/I - Respiratory Exam Respiratory Exam: Rhonchi. absent: Clear to Ausculation Bilateral, NORMAL BREATHING PATTERN Additional comments: right and left chest tubes in place, c/d/i - Cardiovascular Exam Cardiovascular Exam: REGULAR RHYTHM, +S1, +S2 - GI/Abdominal Exam Additional comments: PEG tube in place w dressing c/d/i; no signs of infection or bleeding - Exam Additional comments: mcintyre cath in place. Rectoseal in place as well. - Extremities Exam Additional comments: pressure preventing boots in place b/l feet - Neurological Exam Neurological Exam: Awake. absent: Oriented x3 - Skin Skin Exam: Dry, Intact, Normal Color, Warm Assessment and Plan - Assessment and Plan (Free Text) Assessment: This is a 52 yo female originally admitted to the ICU for septic shock 2/2 to PN A/UTI worsened by cardiac arrest and anoxic brain injury. Patient found to have apical thrombus in heart. Patient is s/p trach and PEG. Patient still unable to be weaned off vent. She has had multiple complications, including DVT and infections (PNA, UTI). s/p IVC filter 08/23. s/p multiple chest tube placements Sep 19-Oct 21. s/p LP 09/15. Patient has shown minimal improvement of cognitive function during the course of this hospitalization. Patient does not have any insurance and therefore cannot be placed in rehab/NH. Multiple conversations with regarding poor prognosis- Code status now DNR. Palliative and pastoral care have been on board. Patient on comfort measure at this time. Plan: Altered mental status/Encephalopathy- suspect anoxic encephalopathy -Code Blue 07/10 and 07/20 -Moved to med surg floor 11/08 -Chest tubes x2 in place -Off sedation -Modafinil 50 mg PO daily -CT head (08/28/18): No hemorrhage or midline shift -MRI brain (09/08/18): No definite mass effect or suspicious extra axial collection. No evidence of acute or subacute brain infarction at this time. Borderline pattern of hydrocephalus. -LP 09/15/18: normal opening pressure - LDH 30, glucose 69, tot prot 67 - CSF Cx: no growth - Other CSF studies pending- called lab 11/01, they will contact [facility] for update -Neurology consulted (George/Ankit) Acute respiratory failure- s/p trach on vent, unable to wean - Tracheostomy 07/24/18, s/p bronchoscopy 08/23 - Patient had tolerated trach collars in early Aug 2018; however she has been on vent to trach since. Fi02: 40% - Bronchoscopy (08/23/18) by Dr. Lozada - Bronchial washings: Pseudomonas Aeruginosa - Fungal Cx: negative - Mycobacterial Cx: negative - Chest physiotherapy increased secretions, but pt is being suctioned by RN regularly - Most recent CT chest (10/27/18): Large bilateral pleural effusions and associated consolidations. Trace pericardial effusion. Borderline cardiomegaly. Enlarged heterogeneous partially imaged thyroid gland. - Monitor CO2 - ABG on FiO2 40 (11/02/18): pH 7.34, pCO2 29, pO2 106 - Sodium bicarb 650 mg PEG BID - Pulmonary consulted (Neville) - Pain Mgmt Consulted: Dr Clayton 5mg Ketamine IVP Anemia 2/2 to Chronic Diseases +/- Dysfunctional uterine bleeding, stable -Hg stable -Stool occult blood negative -Iron normal, TIBC low, Iron saturation normal, Ferritin normal -B12, folate normal -Vaginal US: thickened endometrium -Transfused pRBC: 1 unit 07/22/18, 2 units 08/13/18, 1 unit 08/17/18, 1 unit 08/23/18, 2 unit 11/15/18 -OBGYN consulted (Gilberto)- no hysterectomy -During transfusion pt went hypotensive 77/41, PRBC adm rate increased from 120 to 150, 1L NS bolus w/ albumin IVPB on other arm -BP 98/49, pt is normally in this range VRE UTI - afebrile - UCx shows VRE sensitive to linezolid - Infectious disease recommends IV abx for total 3 weeks - cefepime IVPB 10/27 for P. aeruginosa Zyvox added 11/17 for VRE in Urine Sacral Decubitus Ulcer, stage 2 - Wound care consulted, f/u recs extension to anus: this will require frequent cleaning - recommending repositioning q2hrs - new specialty mattress ordered - medihoney w/ optiforam - feeds increased for greater protein intake Upper Extremity swelling bilateral - upper ext dopplers : neg - holding anticoags due to vaginal bleeding - Mid Line in place, PICC pending BCs Distended abdomen -Resolving, pt had BM -AXR (10/28/18): Nonspecific bowel gas pattern with relative paucity of bowel gas. -Repeat AXR (11/02/18): Normal bowel gas pattern. -PEG tube feeds goal rate 40:Pulmocare -Reglan discontinued due to interaction with zyvox Will consider starting reglan in the future as abx have been discontinued (11/29) Pt is on zofran 4 mg IVP Q8h for nausea/vomiting No obvious aspiration pneumonia on CXR; will f/u with official read -Miralax PEG BID -Simethicone 80 mg PEG QID Pleural effusions- s/p bilateral chest tubes - Multiple chest tubes and thoracenteses for effusions, most recent s/p bilateral chest tubes 10/27 - Pleural fluid from 10/13/18 - WBC 794, RBC 2083, tot cells 100, neutrophils 87% - Tot prot<3, LDH 145, glucose 146 - CT chest (10/27/18): Placment of 8.5 Bangladeshi pigtail drainage catheter within right and left pleural space - Most recent CXR (10/31/18): Status post bilateral chest tube placements. Marked reduction of bilateral pleural effusions, commensurate re-expansion of both lungs. - Repeat CXR 11/02: Worsening pulmonary edema - IR consulted (Partha) - Pulmonology consulted (Neville) Will f/u on need for chest tubes since no drainage overnight Thyroid disorder - Thyroid US (07/16/18): Heterogeneous thyroid echotexture. Numerous nodules as described above. Suggest percutaneous biopsy of the following suspicious nodules; 1.8 x 0.9 x 1.7 cm right lower pole nodule, 1.0 x 0.7 x 0.9 cm right upper pole lesion with intracystic vascular nodule, complex left upper pole nodule measuring 2.1 x 1.5 x 1.8 cm. - Note: Initial thyroid studies taken before amiodarone was given- this is NOT amiodarone induced - TSH <0.02 in 07/2018, 10/31/18 TSH 18.10 - Free T4 >3 in 07/2018, 10/31/2018 free T4 0.24 - wnl TSH, free T4 on 11/08/18 - Methimazole to 10 mg PO Q8H - Off Propranolol 5 mg PO TID due to hypotension - Endocrinology consulted (Irwni) Hypotension - BP today 126/50 - continue to monitor and bolus as needed for low blood pressure -Midodrine 10 mg PEG TID Atrial fibrillation w/ RVR, resolved -EKG (10/29/18): Afib HR 130 -Cardiology consulted (Nolan) Deconditioning -Patient needs aggressive continued PT/OT- PT signed off as patient does not follow directions -Nursing and move patient OOB to chair -Social work note (08/09/18): patient is undocumented, has not health insurance, discharge planning will be at home with Septic Shock 2/2 Pneumonia and Urinary Tract Infection (VRE and Pseudomonas)- urinary retention -Off pressors (previously on 3) -Afebrile since 10/21/18 -Procal 1.49 on 11/01/18, 0.66 on 10/21/18 -CXR (11/02/18): worsening pulmonary edema -Most recent blood cultures negative -Most recent urine cultures (10/21/18) +VRE/Pseudomonas, suspect patient likely colonized -Mcintyre in place -Midline removed 11/01/18 -PICC team unable to insert PICC line 11/13/18 -Flomax 0.4 mg PEG daily -Cefepime 1 g Q12H- started 10/27 -ID consulted (Vinod) -neg BCx to date Apical thrombus -Echo (07/07/18) before cardiac arrest: EF 40-45% -Echo (07/10/19) after cardiac arrest: EF 40%, LV large apical hypokinesis, large 30x20 mm soft tissue apical sessile mass suggestive of thrombus -Echo (08/17/19): LV clot, no significant change -Too high risk for HUBERT -Previously on heparin gtt, Eliquis- stopped due to anemia and vaginal bleeding -ASA 81 mg PEG daily LLE Deep vein thrombosis s/p IVC filter -Venous Doppler (07/18/18): Acute thrombosis of the left common femoral and fem oral veins with severe reduction of the venous return -Resolved on repeat imaging -Previously on heparin gtt, Eliquis- stopped due to anemia and vaginal bleeding -s/p IVC filter on 08/23/18 -Vasc surgery consulted (Vicky) T2DM -A1c: 7.8 -Hypoglycemia protocol -Accuchecks Q6H Vtach- Code blue x2 (07/10/18) - Previously on amiodarone ggt - Cardiology consulted (Nolan) NEHA, resolved - Required dialysis early in admission before code blues - Monitor BUN, Cr Shock liver, resolved -Hepatitis panel negative -HIV negative -Monitor LFTs PPx, Diet, Disposition -DVT ppx: scds -GI ppx: protonix 40 via PEG q12 -Tube feeds -Pulmocare at 10 mL per hour due to regurgitation -Lactobacillus 1 cap PEG Q12H -Multivitamin PEG daily -Vitamin C 1,000 PEG daily -Vitamin A&E Dispo: Continue Abx for tx of VRE in urine and p. aeruginosa in trach aspirate. Infectious disease on board. Pt has been made DNR with POLST form for comfort care in place. stated that he was going to be speaking with patient's family to discuss with them, and then will decide on possibility of hospice. Pastoral care to see and talk with . Plan discussed with Dr Armond Alva, PGY-1
--- NOTE | 2018-12-01 08:14 | RAD ---
Date of service: 11/30/2018 HISTORY: r/o asp pna COMPARISON: 11/10/2018. FINDINGS: Tracheostomy tube is in stable position. LUNGS: The lungs are well inflated and clear. There is linear scarring in the left lower lobe. No focal consolidation. PLEURA: Bilateral chest tubes remain in stable position. Persistent small effusions. No pleural effusions or pneumothorax. CARDIOVASCULAR: The heart is normal in size. No aortic atherosclerotic calcifications present. OSSEOUS STRUCTURES: Within normal limits for the patient's age. VISUALIZED UPPER ABDOMEN: Normal. OTHER FINDINGS: Nodular opacity overlying the left lower lobe is most compatible with nipple shadow IMPRESSION: Stable position of tracheostomy tube. Stable position of bilateral chest tubes. Small pleural effusions and linear scarring in the left lower lobe. No lobar pneumonia.
[2018-12-01] MEDS: Petrolatum Oint Foilpak (5 gm) TOP SCH (09:15)
[2018-12-01] MEDS: Simethicone 80 mg Chewtab PO SCH ×4 (09:16→21:41)
[2018-12-01] MEDS: Pantoprazole 40 mg Susp UD GT SCH ×2 (09:16→21:41)
--- NOTE | 2018-12-01 13:30 | CP.PCM.PN ---
Subjective - Date & Time of Evaluation Date of Evaluation: 12/01/18 Time of Evaluation: 13:25 - Subjective Subjective: Patient is alert, unable to fallow simple commends, on Trach colar and PEG. Sacral pressure sore, Flexi Seal in place to promote sacral wound healing. Chest tube in place, 0 cc drainage. is at bed side and is considering the comfort care for his as her condition is very complex and meaningful recovery is not expected. Objective - Vital Signs/Intake and Output Vital Signs (last 24 hours): Temp Pulse Resp BP Pulse Ox 98.7 F 106 H 20 127/62 100 12/01/18 08:00 12/01/18 08:00 12/01/18 08:00 12/01/18 08:00 12/01/18 08:00 Intake and Output: 12/01/18 12/01/18 06:59 18:59 Intake Total 1220 Output Total 625 Balance 595 - Medications Medications: Current Medications Aspirin (Aspirin Chewable) 81 mg GT DAILY [facility] Last Admin: 12/01/18 09:17 Dose: 81 mg Dextrose (Dextrose 50% Inj) 0 ml IVP .STAT PRN; Protocol PRN Reason: Hypoglycemia Protocol Dextrose (Glutose 15) 0 gm PO .ONCE PRN; Protocol PRN Reason: Hypoglycemia Protocol Emollient Ointment (Vaseline Oint) 5 gm TOP DAILY [facility] Last Admin: 12/01/18 09:15 Dose: 5 gm Glucagon (Glucagen Diagnostic Kit) 0 mg IM .STAT PRN; Protocol PRN Reason: Hypoglycemia Protocol Methimazole (Tapazole) 10 mg PO Q8 [facility] Last Admin: 12/01/18 05:45 Dose: 10 mg Midodrine (Proamatine) 10 mg PO TID [facility] Last Admin: 12/01/18 09:16 Dose: 10 mg Ondansetron HCl (Zofran Inj) 4 mg IVP DAILY@ONCE PRN PRN Reason: Nausea/Vomiting Last Admin: 11/29/18 17:05 Dose: 4 mg Pantoprazole Sodium (Protonix Susp) 40 mg GT Q12H [facility] Last Admin: 12/01/18 09:16 Dose: 40 mg Simethicone (Mylicon Chew Tab) 80 mg PO QID [facility] Last Admin: 12/01/18 09:16 Dose: 80 mg Sodium Bicarbonate (Sodium Bicarbonate Tab) 650 mg PO BID [facility] Last Admin: 12/01/18 09:16 Dose: 650 mg - Labs Labs: 11/28/18 11:26 11/28/18 11:26 PT 13.3 SECONDS (9.7-12.2) H 10/23/18 06:05 INR 1.2 10/23/18 06:05 APTT 23 SECONDS (21-34) 10/02/18 06:10 - Constitutional Appears: Chronically Ill - Head Exam Head Exam: ATRAUMATIC, NORMAL INSPECTION, NORMOCEPHALIC - Eye Exam Eye Exam: EOMI, Normal appearance, PERRL Pupil Exam: NORMAL ACCOMODATION - ENT Exam Additional comments: trach - Respiratory Exam Respiratory Exam: Accessory Muscle Use, Decreased Breath Sounds, Prolonged Expiratory Phase - Cardiovascular Exam Cardiovascular Exam: Tachycardia - GI/Abdominal Exam Additional comments: PEG - Rectal Exam Rectal Exam: Deferred - Exam Additional comments: Hernandes cath - Extremities Exam Extremities Exam: Joint Swelling, Pedal Edema - Back Exam Additional comments: sacral pressure sore - Neurological Exam Neurological Exam: Alert, Altered, Motor Sensory Deficit Neuro motor strength exam: Left Upper Extremity: 0, Right Upper Extremity: 0, Left Lower Extremity: 0, Right Lower Extremity: 0 - Psychiatric Exam Psychiatric exam: Agitated - Skin Skin Exam: Mottled Assessment and Plan - Assessment and Plan (Free Text) Assessment: Patient examined is bed, is agitated, does not fallow, aphasic, looks really sick. There is edema to both hands and LEs. Oral mucousa is dry. Patient needs max assistance to be repositioned in bed. is at bed side. last time we met we discussed the comfort measures. I discussed it again with him today. I shared the Medical team impression about his 's condition being irreversible and that her life expectancy was limited. shared with me dislike about daily blood works. He would want us to stop all diagnostic studies and just provide comfort care. I made sure he understood that comfort care were aimed toward promotion of comfortable when was expected, due to uncurable condition. He stated understanding. I specifically mentioned that further blood work, CXRs, CT scans or any other forms of diagnostic studies will stop and accent will be placed on comfort, skin care, comfortable breathing , feeding and comfortable at the end. He agreed with tears in his eyes. I shared this with Doctor Armond, GUSTAVO and SS. Impression * This is a very sick woman with significantly decreased quality of life 2nd to CVA and its consequences * Meaningful recovery is not expected * Patient's condition is declining and further treatment will only prolong her d eath and suffering * Patient's is only concerned with her comfort at this time and agreed with comfort measures Suggestion * Would consider only Palliation of symptoms using all ordinary measures to promote comfort such as feeding, O2 supply, turning and positiong, promotion of skin integrity * Aspiration precautions * Would remove chest tubes * Would consider Morphine PRN if patient gets in respiratory distress * Continue Sacral wound care * Allow natural Advance care discussion 30 min palliative care will remain on board and assist in promotion of comfort measures.
--- NOTE | 2018-12-01 17:31 | CP.PCM.PN ---
Subjective - Date & Time of Evaluation Date of Evaluation: 12/01/18 Time of Evaluation: 09:00 - Subjective Subjective: events noted for possible comfort care IV antibiotics on hold Objective - Vital Signs/Intake and Output Vital Signs (last 24 hours): Temp Pulse Resp BP Pulse Ox 98.7 F 106 H 20 127/62 100 12/01/18 08:00 12/01/18 08:00 12/01/18 08:00 12/01/18 08:00 12/01/18 08:00 Intake and Output: 12/01/18 12/01/18 06:59 18:59 Intake Total 1220 460 Output Total 625 0 Balance 595 460 - Medications Medications: Current Medications Aspirin (Aspirin Chewable) 81 mg GT DAILY [facility] Last Admin: 12/01/18 09:17 Dose: 81 mg Dextrose (Dextrose 50% Inj) 0 ml IVP .STAT PRN; Protocol PRN Reason: Hypoglycemia Protocol Dextrose (Glutose 15) 0 gm PO .ONCE PRN; Protocol PRN Reason: Hypoglycemia Protocol Emollient Ointment (Vaseline Oint) 5 gm TOP DAILY [facility] Last Admin: 12/01/18 09:15 Dose: 5 gm Glucagon (Glucagen Diagnostic Kit) 0 mg IM .STAT PRN; Protocol PRN Reason: Hypoglycemia Protocol Methimazole (Tapazole) 10 mg PO Q8 [facility] Last Admin: 12/01/18 14:16 Dose: 10 mg Midodrine (Proamatine) 10 mg PO TID [facility] Last Admin: 12/01/18 14:16 Dose: 10 mg Ondansetron HCl (Zofran Inj) 4 mg IVP DAILY@ONCE PRN PRN Reason: Nausea/Vomiting Last Admin: 11/29/18 17:05 Dose: 4 mg Pantoprazole Sodium (Protonix Susp) 40 mg GT Q12H [facility] Last Admin: 12/01/18 09:16 Dose: 40 mg Simethicone (Mylicon Chew Tab) 80 mg PO QID [facility] Last Admin: 12/01/18 14:16 Dose: 80 mg Sodium Bicarbonate (Sodium Bicarbonate Tab) 650 mg PO BID [facility] Last Admin: 12/01/18 09:16 Dose: 650 mg - Labs Labs: 11/28/18 11:26 11/28/18 11:26 PT 13.3 SECONDS (9.7-12.2) H 10/23/18 06:05 INR 1.2 10/23/18 06:05 APTT 23 SECONDS (21-34) 10/02/18 06:10 - Constitutional Appears: Non-toxic, Confused, Cachectic, Chronically Ill - Head Exam Head Exam: NORMOCEPHALIC - Eye Exam Eye Exam: absent: Scleral icterus - ENT Exam ENT Exam: Mucous Membranes Dry - Neck Exam Neck Exam: absent: Lymphadenopathy - Respiratory Exam Respiratory Exam: Decreased Breath Sounds - Cardiovascular Exam Cardiovascular Exam: REGULAR RHYTHM - GI/Abdominal Exam GI & Abdominal Exam: Distended - Rectal Exam Rectal Exam: Deferred - Exam Exam: NORMAL INSPECTION - Extremities Exam Extremities Exam: absent: Pedal Edema - Back Exam Back Exam: absent: CVA tenderness (L), CVA tenderness (R) - Neurological Exam Neurological Exam: Altered - Psychiatric Exam Psychiatric exam: Depressed - Skin Skin Exam: Dry Assessment and Plan (1) NEHA (acute kidney injury) Status: Acute (2) Acute renal failure Status: Acute (3) Acute respiratory failure Status: Acute (4) Aspiration pneumonia Status: Acute (5) Septic shock Status: Acute (6) Urinary tract infection Status: Acute (7) Diabetes mellitus Status: Chronic (8) Anoxic brain damage Status: Acute - Assessment and Plan (Free Text) Assessment: cont supportive care monitor for fever antibiotics on hold
--- NOTE | 2018-12-01 23:35 | CP.PCM.PN ---
Subjective - Date & Time of Evaluation Date of Evaluation: 12/02/18 Time of Evaluation: 01:35 - Subjective Subjective: PGY-[address] Leahy service Patient is seen and examined at bedside. No acute events overnights. No vomiting noted. Patient is on comfort measures at this time with continuing wound care. ROS unattainable due to patient's clinical status. Objective - Vital Signs/Intake and Output Vital Signs (last 24 hours): Temp Pulse Resp BP Pulse Ox 97.7 F 99 H 20 126/50 L 100 12/01/18 16:00 12/01/18 16:00 12/01/18 16:00 12/01/18 16:00 12/01/18 16:00 Intake and Output: 12/01/18 12/02/18 18:59 06:59 Intake Total 460 Output Total 0 Balance 460 - Medications Medications: Current Medications Aspirin (Aspirin Chewable) 81 mg GT DAILY [facility] Last Admin: 12/01/18 09:17 Dose: 81 mg Dextrose (Dextrose 50% Inj) 0 ml IVP .STAT PRN; Protocol PRN Reason: Hypoglycemia Protocol Dextrose (Glutose 15) 0 gm PO .ONCE PRN; Protocol PRN Reason: Hypoglycemia Protocol Emollient Ointment (Vaseline Oint) 5 gm TOP DAILY [facility] Last Admin: 12/01/18 09:15 Dose: 5 gm Glucagon (Glucagen Diagnostic Kit) 0 mg IM .STAT PRN; Protocol PRN Reason: Hypoglycemia Protocol Methimazole (Tapazole) 10 mg PO Q8 [facility] Last Admin: 12/01/18 21:41 Dose: 10 mg Midodrine (Proamatine) 10 mg PO TID [facility] Last Admin: 12/01/18 17:35 Dose: 10 mg Ondansetron HCl (Zofran Inj) 4 mg IVP DAILY@ONCE PRN PRN Reason: Nausea/Vomiting Last Admin: 11/29/18 17:05 Dose: 4 mg Pantoprazole Sodium (Protonix Susp) 40 mg GT Q12H [facility] Last Admin: 12/01/18 21:41 Dose: 40 mg Simethicone (Mylicon Chew Tab) 80 mg PO QID [facility] Last Admin: 12/01/18 21:41 Dose: 80 mg Sodium Bicarbonate (Sodium Bicarbonate Tab) 650 mg PO BID [facility] Last Admin: 12/01/18 17:36 Dose: 650 mg - Labs Labs: 11/28/18 11:26 11/28/18 11:26 PT 13.3 SECONDS (9.7-12.2) H 10/23/18 06:05 INR 1.2 10/23/18 06:05 APTT 23 SECONDS (21-34) 10/02/18 06:10 - Additional Findings Additional findings: - Constitutional Appears: Chronically Ill - Eye Exam Eye Exam: Scleral icterus - Neck Exam Additional comments: trach with vent in place, C/D/I. Some secretions noted. - Respiratory Exam Respiratory Exam: Rhonchi bilaterally. On ventilator via trach. absent: Clear to Ausculation Bilateral, NORMAL BREATHING PATTERN Additional comments: right and left chest tubes in place, c/d/i - Cardiovascular Exam Cardiovascular Exam: REGULAR RHYTHM, +S1, +S2, no tachycardia - GI/Abdominal Exam Additional comments: PEG tube in place w dressing c/d/i; no gross signs of infection or bleeding - Exam Additional comments: Hernandes cath in place. Rectoseal in place, no leakage noted. - Extremities Exam Dependant edema bilateral upper and lower extremities. Additional comments: pressure preventing boots in place b/l feet - Neurological Exam Neurological Exam: Awake. Responsive to painful stimuli. absent: Oriented x3 - Skin Skin Exam: Dry, Intact, Normal Color, Warm. Sacral ulcer is stage 1. Healing well. Assessment and Plan - Assessment and Plan (Free Text) Assessment: This is a 52 yo female originally admitted to the ICU for septic shock 2/2 to PNA/UTI worsened by cardiac arrest and anoxic brain injury. Patient found to have apical thrombus in heart. Patient is s/p trach and PEG. Patient still unable to be weaned off vent. She has had multiple complications, including DVT and infections (PNA, UTI). s/p IVC filter 08/23. s/p multiple chest tube placements Sep 19-Oct 21. s/p LP 09/15. Patient has shown minimal improvement of cognitive function during the course of this hospitalization. Patient does not have any insurance and therefore cannot be placed in rehab/NH. Multiple conversations with regarding poor prognosis- Code status now DNR. Palliative and pastoral care have been on board. Patient on comfort measure at this time. Plan: Altered mental status/Encephalopathy- suspect anoxic encephalopathy -Code Blue 07/10 and 07/20 -Moved to med surg floor 11/08 -Chest tubes x2 in place -Off sedation -Modafinil 50 mg PO daily -CT head (08/28/18): No hemorrhage or midline shift -MRI brain (09/08/18): No definite mass effect or suspicious extra axial collection. No evidence of acute or subacute brain infarction at this time. Borderline pattern of hydrocephalus. -LP 09/15/18: normal opening pressure - LDH 30, glucose 69, tot prot 67 - CSF Cx: no growth - Other CSF studies pending- called lab 11/01, they will contact [employer] for update -Neurology consulted (George/Ankit) Acute respiratory failure- s/p trach on vent, unable to wean - Tracheostomy 07/24/18, s/p bronchoscopy 08/23 - Patient had tolerated trach collars in early Aug 2018; however she has been on vent to trach since. Fi02: 40% - Bronchoscopy (08/23/18) by Dr. Lozada - Bronchial washings: Pseudomonas Aeruginosa - Fungal Cx: negative - Mycobacterial Cx: negative - Chest physiotherapy increased secretions, but pt is being suctioned by RN regularly - Most recent CT chest (10/27/18): Large bilateral pleural effusions and associated consolidations. Trace pericardial effusion. Borderline cardiomegaly. Enlarged heterogeneous partially imaged thyroid gland. - Monitor CO2 - ABG on FiO2 40 (11/02/18): pH 7.34, pCO2 29, pO2 106 - Sodium bicarb 650 mg PEG BID - Pulmonary consulted (Neville) - Pain Mgmt Consulted: Dr Clayton 5mg Ketamine IVP - may consider scopolamine patch for secretions Anemia 2/2 to Chronic Diseases +/- Dysfunctional uterine bleeding, stable -Hg stable -Stool occult blood negative -Iron normal, TIBC low, Iron saturation normal, Ferritin normal -B12, folate normal -Vaginal US: thickened endometrium -Transfused pRBC: 1 unit 07/22/18, 2 units 08/13/18, 1 unit 08/17/18, 1 unit 08/23/18, 2 unit 11/15/18 -OBGYN consulted (Gilberto)- no hysterectomy -During transfusion pt went hypotensive 77/41, PRBC adm rate increased from 120 to 150, 1L NS bolus w/ albumin IVPB on other arm VRE UTI - afebrile - UCx shows VRE sensitive to linezolid - Infectious disease recommends IV abx for total 3 weeks - cefepime IVPB 10/27 for P. aeruginosa Zyvox added 11/17 for VRE in Urine - 12/01 procal is 1.67 Sacral Decubitus Ulcer, stage 2 - Wound care consulted, f/u recs extension to anus: this will require frequent cleaning - recommending repositioning q2hrs - new specialty mattress ordered - medihoney w/ optiforam - feeds increased for greater protein intake Upper Extremity swelling bilateral - upper ext dopplers : neg - holding anticoags due to vaginal bleeding - Mid Line in place, PICC pending BCs Distended abdomen -Resolving, pt had BM -AXR (10/28/18): Nonspecific bowel gas pattern with relative paucity of bowel gas. -Repeat AXR (11/02/18): Normal bowel gas pattern. -PEG tube feeds goal rate 30:Pulmocare -Reglan discontinued due to interaction with zyvox Will consider starting reglan in the future as abx have been discontinued (11/29) Pt is on zofran 4 mg IVP Q8h for nausea/vomiting CXR 11/30 shows no lobar pneumonia. Tubes in good position. -Miralax PEG BID -Simethicone 80 mg PEG QID Pleural effusions- s/p bilateral chest tubes - Multiple chest tubes and thoracenteses for effusions, most recent s/p bilateral chest tubes 10/27 - Pleural fluid from 10/13/18 - WBC 794, RBC 2083, tot cells 100, neutrophils 87% - Tot prot<3, LDH 145, glucose 146 - CT chest (10/27/18): Placment of 8.5 Yi pigtail drainage catheter within right and left pleural space - Most recent CXR (10/31/18): Status post bilateral chest tube placements. Marked reduction of bilateral pleural effusions, commensurate re-expansion of both lungs. - Repeat CXR 11/02: Worsening pulmonary edema - IR consulted (Partha) - Pulmonology consulted (Neville) Thyroid disorder - Thyroid US (07/16/18): Heterogeneous thyroid echotexture. Numerous nodules as described above. Suggest percutaneous biopsy of the following suspicious nodules; 1.8 x 0.9 x 1.7 cm right lower pole nodule, 1.0 x 0.7 x 0.9 cm right up per pole lesion with intracystic vascular nodule, complex left upper pole nodule measuring 2.1 x 1.5 x 1.8 cm. - Note: Initial thyroid studies taken before amiodarone was given- this is NOT amiodarone induced - TSH <0.02 in 07/2018, 10/31/18 TSH 18.10 - Free T4 >3 in 07/2018, 10/31/2018 free T4 0.24 - wnl TSH, free T4 on 11/08/18 - Methimazole to 10 mg PO Q8H - Off Propranolol 5 mg PO TID due to hypotension - Endocrinology consulted (Irwin) Hypotension - 11/30 tachycardia at 140s, hypotensive at 80s/50s. Responded well to Albumin 25% 12.5g x 2 and 1 L NS bolus. - continue albumin and NS boluses as needed - Midodrine 10 mg PEG TID Atrial fibrillation w/ RVR, resolved -EKG (10/29/18): Afib HR 130 -Cardiology consulted (Nolan) Deconditioning -Patient needs aggressive continued PT/OT- PT signed off as patient does not follow directions -Nursing and move patient OOB to chair -Social work note (08/09/18): patient is undocumented, has not health insurance, discharge planning will be at home with Septic Shock 2/2 Pneumonia and Urinary Tract Infection (VRE and Pseudomonas)- urinary retention -Off pressors (previously on 3) -Afebrile since 10/21/18 -Procal 1.49 on 11/01/18, 0.66 on 10/21/18 -CXR (11/02/18): worsening pulmonary edema -Most recent blood cultures negative -Most recent urine cultures (10/21/18) +VRE/Pseudomonas, suspect patient likely colonized -Hernandes in place -Midline removed 11/01/18 -PICC team unable to insert PICC line 11/13/18 -Flomax 0.4 mg PEG daily -Cefepime 1 g Q12H- started 10/27 -ID consulted (Vinod) -neg BCx to date Apical thrombus -Echo (07/07/18) before cardiac arrest: EF 40-45% -Echo (07/10/19) after cardiac arrest: EF 40%, LV large apical hypokinesis, large 30x20 mm soft tissue apical sessile mass suggestive of thrombus -Echo (08/17/19): LV clot, no significant change -Too high risk for HUBERT -Previously on heparin gtt, Eliquis- stopped due to anemia and vaginal bleeding -ASA 81 mg PEG daily LLE Deep vein thrombosis s/p IVC filter -Venous Doppler (07/18/18): Acute thrombosis of the left common femoral and femoral veins with severe reduction of the venous return -Resolved on repeat imaging -Previously on heparin gtt, Eliquis- stopped due to anemia and vaginal bleeding -s/p IVC filter on 08/23/18 -Vasc surgery consulted (Vicky) T2DM -A1c: 7.8 -Hypoglycemia protocol Vtach- Code blue x2 (07/10/18) - Previously on amiodarone ggt - Cardiology consulted (Nolan) NEHA, resolved - Required dialysis early in admission before code blues Shock liver, resolved -Hepatitis panel negative -HIV negative PPx, Diet, Disposition -DVT ppx: scds -GI ppx: protonix 40 via PEG q12 -Tube feeds -Pulmocare at 30 mL per hour due to hx of regurgitation -Lactobacillus 1 cap PEG Q12H -Multivitamin PEG daily -Vitamin C 1,000 PEG daily -Vitamin A&E Dispo: Palliative care has had in depth conversation with who wants comfort measures and no blood draws or invasive treatment. Comfort care measures will be initiated. Abx for tx of VRE in urine and p. aeruginosa in trach aspirate have been discontinued. DNR with POLST form for comfort care in place.
[2018-12-02] MEDS: Simethicone 80 mg Chewtab PO SCH ×4 (10:00→22:04)
[2018-12-02] MEDS: Pantoprazole 40 mg Susp UD GT SCH ×2 (10:00→22:05)
[2018-12-02] MEDS: Petrolatum Oint Foilpak (5 gm) TOP SCH (10:00)
--- NOTE | 2018-12-02 19:33 | CP.PCM.PN ---
Subjective - Date & Time of Evaluation Date of Evaluation: 12/03/18 Time of Evaluation: 04:43 - Subjective Subjective: PGY-[address] Leahy service Patient is seen and examined at bedside. No acute events overnights as per notes. No vomiting noted, secretions are decreased. Patient is on comfort measures at this time with continuing wound care. ROS unattainable due to patient's clinical status. Objective - Vital Signs/Intake and Output Vital Signs (last 24 hours): Temp Pulse Resp BP Pulse Ox 98.1 F 129 H 18 99/62 L 100 12/02/18 16:30 12/02/18 16:30 12/02/18 16:30 12/02/18 16:30 12/02/18 16:30 Intake and Output: 12/02/18 12/03/18 18:59 06:59 Intake Total 620 Output Total 900 Balance -280 - Medications Medications: Current Medications Aspirin (Aspirin Chewable) 81 mg GT DAILY [facility] Last Admin: 12/02/18 10:00 Dose: 81 mg Dextrose (Dextrose 50% Inj) 0 ml IVP .STAT PRN; Protocol PRN Reason: Hypoglycemia Protocol Dextrose (Glutose 15) 0 gm PO .ONCE PRN; Protocol PRN Reason: Hypoglycemia Protocol Emollient Ointment (Vaseline Oint) 5 gm TOP DAILY [facility] Last Admin: 12/02/18 10:00 Dose: 5 gm Glucagon (Glucagen Diagnostic Kit) 0 mg IM .STAT PRN; Protocol PRN Reason: Hypoglycemia Protocol Methimazole (Tapazole) 10 mg PO Q8 [facility] Last Admin: 12/02/18 15:00 Dose: 10 mg Midodrine (Proamatine) 10 mg PO TID [facility] Last Admin: 12/02/18 18:33 Dose: 10 mg Ondansetron HCl (Zofran Inj) 4 mg IVP DAILY@ONCE PRN PRN Reason: Nausea/Vomiting Last Admin: 11/29/18 17:05 Dose: 4 mg Pantoprazole Sodium (Protonix Susp) 40 mg GT Q12H [facility] Last Admin: 12/02/18 10:00 Dose: 40 mg Simethicone (Mylicon Chew Tab) 80 mg PO QID [facility] Last Admin: 12/02/18 18:33 Dose: 80 mg Sodium Bicarbonate (Sodium Bicarbonate Tab) 650 mg PO BID [facility] Last Admin: 12/02/18 18:33 Dose: 650 mg - Labs Labs: 11/28/18 11:26 11/28/18 11:26 PT 13.3 SECONDS (9.7-12.2) H 10/23/18 06:05 INR 1.2 10/23/18 06:05 APTT 23 SECONDS (21-34) 10/02/18 06:10 - Additional Findings Additional findings: - Constitutional Appears: Chronically Ill - Eye Exam Eye Exam: Scleral icterus - Neck Exam Additional comments: trach with vent in place, C/D/I. - Respiratory Exam Respiratory Exam: Rhonchi bilaterally. On ventilator via trach. absent: Clear to Ausculation Bilateral, NORMAL BREATHING PATTERN Additional comments: right and left chest tubes in place, c/d/i - Cardiovascular Exam Cardiovascular Exam: REGULAR RHYTHM, +S1, +S2, tachycardia at approximately 100 - GI/Abdominal Exam Additional comments: PEG tube in place w dressing c/d/i; no gross signs of infection or bleeding - Exam Additional comments: Hernandes cath in place. Rectoseal in place, no leakage noted. - Extremities Exam Dependant edema bilateral upper and lower extremities. Additional comments: pressure preventing boots in place b/l feet - Neurological Exam Neurological Exam: Awake. Responsive to painful stimuli. absent: Oriented x3 - Skin Skin Exam: Dry, Intact, Normal Color, Warm. Sacral ulcer is stage 1. Healing well. Assessment and Plan - Assessment and Plan (Free Text) Assessment: This is a 52 yo female originally admitted to the ICU for septic shock 2/2 to PNA/UTI worsened by cardiac arrest and anoxic brain injury. Patient found to have apical thrombus in heart. Patient is s/p trach and PEG. Patient still unab le to be weaned off vent. She has had multiple complications, including DVT and infections (PNA, UTI). s/p IVC filter 08/23. s/p multiple chest tube placements Sep 19-Oct 21. s/p LP 09/15. Patient has shown minimal improvement of cognitive function during the course of this hospitalization. Patient does not have any insurance and therefore cannot be placed in rehab/NH. Multiple conversations with regarding poor prognosis- Code status now DNR. Palliative and pastoral care have been on board. Patient on comfort measure at this time. Plan: Altered mental status/Encephalopathy- suspect anoxic encephalopathy -Code Blue 07/10 and 07/20 -Moved to med surg floor 11/08 -Chest tubes x2 in place -Off sedation -Modafinil 50 mg PO daily -CT head (08/28/18): No hemorrhage or midline shift -MRI brain (09/08/18): No definite mass effect or suspicious extra axial collection. No evidence of acute or subacute brain infarction at this time. Borderline pattern of hydrocephalus. -LP 09/15/18: normal opening pressure - LDH 30, glucose 69, tot prot 67 - CSF Cx: no growth - Other CSF studies pending- called lab 11/01, they will contact [facility] for update -Neurology consulted (George/Ankit) Acute respiratory failure- s/p trach on vent, unable to wean - Tracheostomy 07/24/18, s/p bronchoscopy 08/23 - Patient had tolerated trach collars in early Aug 2018; however she has been on vent to trach since. Fi02: 40% - Bronchoscopy (08/23/18) by Dr. Lozada - Bronchial washings: Pseudomonas Aeruginosa - Fungal Cx: negative - Mycobacterial Cx: negative - Chest physiotherapy increased secretions, but pt is being suctioned by RN regularly - Most recent CT chest (10/27/18): Large bilateral pleural effusions and associated consolidations. Trace pericardial effusion. Borderline cardiomegaly. Enlarged heterogeneous partially imaged thyroid gland. - Monitor CO2 - ABG on FiO2 40 (11/02/18): pH 7.34, pCO2 29, pO2 106 - Sodium bicarb 650 mg PEG BID - Pulmonary consulted (Neville) - Pain Mgmt Consulted: Dr Clayton 5mg Ketamine IVP - may consider scopolamine patch for secretions Anemia 2/2 to Chronic Diseases +/- Dysfunctional uterine bleeding, stable -Hg stable -Stool occult blood negative -Iron normal, TIBC low, Iron saturation normal, Ferritin normal -B12, folate normal -Vaginal US: thickened endometrium -Transfused pRBC: 1 unit 07/22/18, 2 units 08/13/18, 1 unit 08/17/18, 1 unit 08/23/18, 2 unit 11/15/18 -OBGYN consulted (Gilberto)- no hysterectomy -During transfusion pt went hypotensive 77/41, PRBC adm rate increased from 120 to 150, 1L NS bolus w/ albumin IVPB on other arm VRE UTI - afebrile - UCx shows VRE sensitive to linezolid - Infectious disease recommends IV abx for total 3 weeks - cefepime IVPB 10/27 for P. aeruginosa Zyvox added 11/17 for VRE in Urine - 12/01 procal is 1.67 Sacral Decubitus Ulcer, stage 2 - Wound care consulted, f/u recs extension to anus: this will require frequent cleaning - recommending repositioning q2hrs - new specialty mattress ordered - medihoney w/ optiforam - feeds increased for greater protein intake Upper Extremity swelling bilateral - upper ext dopplers : neg - holding anticoags due to vaginal bleeding - Mid Line in place, PICC pending BCs Distended abdomen -Resolving, pt had BM -AXR (10/28/18): Nonspecific bowel gas pattern with relative paucity of bowel gas. -Repeat AXR (11/02/18): Normal bowel gas pattern. -PEG tube feeds goal rate 30:Pulmocare -Reglan discontinued due to interaction with zyvox Will consider starting reglan in the future as abx have been discontinued (11/29) Pt is on zofran 4 mg IVP Q8h for nausea/vomiting CXR 11/30 shows no lobar pneumonia. Tubes in good position. -Miralax PEG BID -Simethicone 80 mg PEG QID Pleural effusions- s/p bilateral chest tubes - Multiple chest tubes and thoracenteses for effusions, most recent s/p bilateral chest tubes 10/27 - Pleural fluid from 10/13/18 - WBC 794, RBC 2083, tot cells 100, neutrophils 87% - Tot prot<3, LDH 145, glucose 146 - CT chest (10/27/18): Placment of 8.5 [place] pigtail drainage catheter within right and left pleural space - Most recent CXR (10/31/18): Status post bilateral chest tube placements. Marked reduction of bilateral pleural effusions, commensurate re-expansion of both lungs. - Repeat CXR 11/02: Worsening pulmonary edema - IR consulted (Partha) - Pulmonology consulted (Neville) F/u with recs on when to remove chest tubes Thyroid disorder - Thyroid US (07/16/18): Heterogeneous thyroid echotexture. Numerous nodules as described above. Suggest percutaneous biopsy of the following suspicious nodules; 1.8 x 0.9 x 1.7 cm right lower pole nodule, 1.0 x 0.7 x 0.9 cm right upper pole lesion with intracystic vascular nodule, complex left upper pole nodule measuring 2.1 x 1.5 x 1.8 cm. - Note: Initial thyroid studies taken before amiodarone was given- this is NOT amiodarone induced - TSH <0.02 in 07/2018, 10/31/18 TSH 18.10 - Free T4 >3 in 07/2018, 10/31/2018 free T4 0.24 - wnl TSH, free T4 on 11/08/18 - Methimazole to 10 mg PO Q8H - Off Propranolol 5 mg PO TID due to hypotension - Endocrinology consulted (Irwin) Hypotension - 11/30 tachycardia at 140s, hypotensive at 80s/50s. Responded well to Albumin 25% 12.5g x 2 and 1 L NS bolus. - continue albumin and NS boluses as needed - Midodrine 10 mg PEG TID Atrial fibrillation w/ RVR, resolved -EKG (10/29/18): Afib HR 130 -Cardiology consulted (Nolan) Deconditioning -Patient needs aggressive continued PT/OT- PT signed off as patient does not follow directions -Nursing and move patient OOB to chair -Social work note (08/09/18): patient is undocumented, has not health insurance, discharge planning will be at home with Septic Shock 2/2 Pneumonia and Urinary Tract Infection (VRE and Pseudomonas)- urinary retention -Off pressors (previously on 3) -Afebrile since 10/21/18 -Procal 1.49 on 11/01/18, 0.66 on 10/21/18 -CXR (11/02/18): worsening pulmonary edema -Most recent blood cultures negative -Most recent urine cultures (10/21/18) +VRE/Pseudomonas, suspect patient likely colonized -Hernandes in place -Midline removed 11/01/18 -PICC team unable to insert PICC line 11/13/18 -Flomax 0.4 mg PEG daily -Cefepime 1 g Q12H- started 10/27 -ID consulted (Vinod) -neg BCx to date Apical thrombus -Echo (07/07/18) before cardiac arrest: EF 40-45% -Echo (07/10/19) after cardiac arrest: EF 40%, LV large apical hypokinesis, large 30x20 mm soft tissue apical sessile mass suggestive of thrombus -Echo (08/17/19): LV clot, no significant change -Too high risk for HUBERT -Previously on heparin gtt, Eliquis- stopped due to anemia and vaginal bleeding -ASA 81 mg PEG daily LLE Deep vein thrombosis s/p IVC filter -Venous Doppler (07/18/18): Acute thrombosis of the left common femoral and femoral veins with severe reduction of the venous return -Resolved on repeat imaging -Previously on heparin gtt, Eliquis- stopped due to anemia and vaginal bleeding -s/p IVC filter on 08/23/18 -Vasc surgery consulted (Vicky) T2DM -A1c: 7.8 -Hypoglycemia protocol Vtach- Code blue x2 (07/10/18) - Previously on amiodarone ggt - Cardiology consulted (Nolan) NEHA, resolved - Required dialysis early in admission before code blues Shock liver, resolved -Hepatitis panel negative -HIV negative PPx, Diet, Disposition -DVT ppx: scds -GI ppx: protonix 40 via PEG q12 -Tube feeds -Pulmocare at 30 mL per hour due to hx of regurgitation -Lactobacillus 1 cap PEG Q12H -Multivitamin PEG daily -Vitamin C 1,000 PEG daily -Vitamin A&E Dispo: Palliative care has had in depth conversation with who wants comfort measures and no blood draws or invasive treatment. Comfort care measures. Abx for tx of VRE in urine and p. aeruginosa in trach aspirate have been discontinued. DNR with POLST form for comfort care in place.
[2018-12-03] MEDS: Pantoprazole 40 mg Susp UD GT SCH ×2 (08:57→21:37)
[2018-12-03] MEDS: Petrolatum Oint Foilpak (5 gm) TOP SCH (10:00)
[2018-12-03] MEDS: Simethicone 80 mg Chewtab PO SCH ×4 (10:01→21:37)
--- NOTE | 2018-12-04 08:30 | CP.PCM.PN ---
<Evaristo Barber - Last Filed: 12/04/18 17:31> Subjective - Date & Time of Evaluation Date of Evaluation: 12/04/18 Time of Evaluation: 12:53 - Subjective Subjective: PGY-1 medicine progress note for Dr. Maria Teresa hendrix Patient is seen and examined at bedside. No acute events overnights as per notes. Patient is on comfort measures at this time with continuing wound care. ROS unattainable due to patient's clinical status. RN reports tachycardia in the 140s, with hypotension. Pt will be started on NS IVF at 50 mL/hr and Albumin 25% 12.5 gm x1 dose. Objective - Vital Signs/Intake and Output Vital Signs (last 24 hours): Temp Pulse Resp BP Pulse Ox 98.4 F 114 H 22 98/57 L 100 12/04/18 00:00 12/04/18 00:00 12/04/18 00:00 12/04/18 00:00 12/04/18 00:00 Intake and Output: 12/04/18 12/04/18 06:59 18:59 Intake Total 460 760 Output Total 300 390 Balance 160 370 - Medications Medications: Current Medications Aspirin (Aspirin Chewable) 81 mg GT DAILY [facility] Last Admin: 12/03/18 09:59 Dose: 81 mg Dextrose (Dextrose 50% Inj) 0 ml IVP .STAT PRN; Protocol PRN Reason: Hypoglycemia Protocol Dextrose (Glutose 15) 0 gm PO .ONCE PRN; Protocol PRN Reason: Hypoglycemia Protocol Emollient Ointment (Vaseline Oint) 5 gm TOP DAILY [facility] Last Admin: 12/03/18 10:00 Dose: 5 gm Glucagon (Glucagen Diagnostic Kit) 0 mg IM .STAT PRN; Protocol PRN Reason: Hypoglycemia Protocol Methimazole (Tapazole) 10 mg PO Q8 [facility] Last Admin: 12/04/18 05:26 Dose: 10 mg Midodrine (Proamatine) 10 mg PO TID [facility] Last Admin: 12/03/18 18:08 Dose: 10 mg Ondansetron HCl (Zofran Inj) 4 mg IVP DAILY@ONCE PRN PRN Reason: Nausea/Vomiting Last Admin: 11/29/18 17:05 Dose: 4 mg Pantoprazole Sodium (Protonix Susp) 40 mg GT Q12H [facility] Last Admin: 12/03/18 21:37 Dose: 40 mg Simethicone (Mylicon Chew Tab) 80 mg PO QID [facility] Last Admin: 12/03/18 21:37 Dose: 80 mg Sodium Bicarbonate (Sodium Bicarbonate Tab) 650 mg PO BID [facility] Last Admin: 12/03/18 18:08 Dose: 650 mg - Labs Labs: 11/28/18 11:26 11/28/18 11:26 PT 13.3 SECONDS (9.7-12.2) H 10/23/18 06:05 INR 1.2 10/23/18 06:05 APTT 23 SECONDS (21-34) 10/02/18 06:10 - Additional Findings Additional findings: - Constitutional Appears: Chronically Ill - Eye Exam Eye Exam: Scleral icterus - Neck Exam Additional comments: trach with vent in place, C/D/I. - Respiratory Exam Respiratory Exam: Rhonchi bilaterally. On ventilator via trach. absent: Clear to Ausculation Bilateral, NORMAL BREATHING PATTERN Additional comments: right and left chest tubes in place, c/d/i - Cardiovascular Exam Cardiovascular Exam: REGULAR RHYTHM, +S1, +S2, tachycardia at approximately 100 - GI/Abdominal Exam Additional comments: PEG tube in place w dressing c/d/i; no gross signs of infection or bleeding - Exam Additional comments: Hernandes cath in place. Rectoseal in place, no leakage noted. - Extremities Exam Dependant edema bilateral upper and lower extremities. Additional comments: pressure preventing boots in place b/l feet - Neurological Exam Neurological Exam: Awake. Responsive to painful stimuli. absent: Oriented x3 - Skin Skin Exam: Dry, Intact, Normal Color, Warm. Stage 2 sacral ulcer dressing is saturated, RN to change. Assessment and Plan - Assessment and Plan (Free Text) Assessment: This is a 52 yo female originally admitted to the ICU for septic shock 2/2 to PNA/UTI worsened by cardiac arrest and anoxic brain injury. Patient found to have apical thrombus in heart. Patient is s/p trach and PEG. Patient still unable to be weaned off vent. She has had multiple complications, including DVT and infections (PNA, UTI). s/p IVC filter 08/23. s/p multiple chest tube placements Sep 19-Oct 21. s/p LP 09/15. Patient has shown minimal improvement of cognitive function during the course of this hospitalization. Patient does not have any insurance and therefore cannot be placed in rehab/NH. Multiple conversations with regarding poor prognosis- Code status now DNR. Palliative and pastoral care have been on board. Patient on comfort measure at this time. Plan: Altered mental status/Encephalopathy- suspect anoxic encephalopathy -Code Blue 07/10 and 07/20 -Moved to [facility] surg floor 11/08 -Chest tubes x2 in place -Off sedation -Modafinil 50 mg PO daily -CT head (08/28/18): No hemorrhage or midline shift -MRI brain (09/08/18): No definite mass effect or suspicious extra axial collection. No evidence of acute or subacute brain infarction at this time. Borderline pattern of hydrocephalus. -LP 09/15/18: normal opening pressure - LDH 30, glucose 69, tot prot 67 - CSF Cx: no growth - Other CSF studies pending- called lab 11/01, they will contact [facility] for update -Neurology consulted (George/Ankit) Acute respiratory failure- s/p trach on vent, unable to wean - Tracheostomy 07/24/18, s/p bronchoscopy 08/23 - Patient had tolerated trach collars in early Aug 2018; however she has been on vent to trach since. Fi02: 40% - Bronchoscopy (08/23/18) by Dr. Lozada - Bronchial washings: Pseudomonas Aeruginosa - Fungal Cx: negative - Mycobacterial Cx: negative - Chest physiotherapy increased secretions, but pt is being suctioned by RN regularly - Most recent CT chest (10/27/18): Large bilateral pleural effusions and assoc iated consolidations. Trace pericardial effusion. Borderline cardiomegaly. Enlarged heterogeneous partially imaged thyroid gland. - Monitor CO2 - ABG on FiO2 40 (11/02/18): pH 7.34, pCO2 29, pO2 106 - Sodium bicarb 650 mg PEG BID - Pulmonary consulted (Neville) - Pain Mgmt Consulted: Dr Clayton 5mg Ketamine IVP - may consider scopolamine patch for secretions Anemia 2/2 to Chronic Diseases +/- Dysfunctional uterine bleeding, stable -Hg stable -Stool occult blood negative -Iron normal, TIBC low, Iron saturation normal, Ferritin normal -B12, folate normal -Vaginal US: thickened endometrium -Transfused pRBC: 1 unit 07/22/18, 2 units 08/13/18, 1 unit 08/17/18, 1 unit 08/23/18, 2 unit 11/15/18 -OBGYN consulted (Gilberto)- no hysterectomy -During transfusion pt went hypotensive 77/41, PRBC adm rate increased from 120 to 150, 1L NS bolus w/ albumin IVPB on other arm VRE UTI - afebrile - UCx shows VRE sensitive to linezolid - Infectious disease recommends IV abx for total 3 weeks - cefepime IVPB 10/27 for P. aeruginosa Zyvox added 11/17 for VRE in Urine - 12/01 procal is 1.67 Sacral Decubitus Ulcer, stage 2 - Wound care consulted, f/u recs extension to anus: this will require frequent cleaning - recommending repositioning q2hrs - new specialty mattress ordered - medihoney w/ optiforam Upper Extremity swelling bilateral - upper ext dopplers : neg - holding anticoags due to vaginal bleeding - Mid Line in place, PICC pending BCs Distended abdomen -Resolving, pt had BM -AXR (10/28/18): Nonspecific bowel gas pattern with relative paucity of bowel gas. -Repeat AXR (11/02/18): Normal bowel gas pattern. -PEG tube feeds goal rate 30:Pulmocare -Reglan discontinued due to interaction with zyvox Will consider starting reglan in the future as abx have been discontinued (11/29) Pt is on zofran 4 mg IVP Q8h for nausea/vomiting CXR 11/30 shows no lobar pneumonia. Tubes in good position. -Miralax PEG BID -Simethicone 80 mg PEG QID Pleural effusions- s/p bilateral chest tubes - Multiple chest tubes and thoracenteses for effusions, most recent s/p bilateral chest tubes 10/27 - Pleural fluid from 10/13/18 - WBC 794, RBC 2083, tot cells 100, neutrophils 87% - Tot prot<3, LDH 145, glucose 146 - CT chest (10/27/18): Placment of 8.5 English pigtail drainage catheter within right and left pleural space - Most recent CXR (10/31/18): Status post bilateral chest tube placements. Marked reduction of bilateral pleural effusions, commensurate re-expansion of both lungs. - Repeat CXR 11/02: Worsening pulmonary edema - IR consulted (Partha) - Pulmonology consulted (Neville) F/u with recs on when to remove chest tubes Thyroid disorder - Thyroid US (07/16/18): Heterogeneous thyroid echotexture. Numerous nodules as described above. Suggest percutaneous biopsy of the following suspicious nodules; 1.8 x 0.9 x 1.7 cm right lower pole nodule, 1.0 x 0.7 x 0.9 cm right upper pole lesion with intracystic vascular nodule, complex left upper pole no dule measuring 2.1 x 1.5 x 1.8 cm. - Note: Initial thyroid studies taken before amiodarone was given- this is NOT amiodarone induced - TSH <0.02 in 07/2018, 10/31/18 TSH 18.10 - Free T4 >3 in 07/2018, 10/31/2018 free T4 0.24 - wnl TSH, free T4 on 11/08/18 - Methimazole to 10 mg PO Q8H - Off Propranolol 5 mg PO TID due to hypotension - Endocrinology consulted (Irwin) Hypotension - 11/30 tachycardia at 140s, hypotensive at 80s/50s. Responded well to Albumin 25% 12.5g x 2 and 1 L NS bolus. - continue albumin and NS boluses as needed - Midodrine 10 mg PEG TID Atrial fibrillation w/ RVR, resolved -EKG (10/29/18): Afib HR 130 -Cardiology consulted (Nolan) Deconditioning -Patient needs aggressive continued PT/OT- PT signed off as patient does not follow directions -Nursing and move patient OOB to chair -Social work note (08/09/18): patient is undocumented, has not health insurance, discharge planning will be at home with Septic Shock 2/2 Pneumonia and Urinary Tract Infection (VRE and Pseudomonas)- urinary retention -Off pressors (previously on 3) -Afebrile since 10/21/18 -Procal 1.49 on 11/01/18, 0.66 on 10/21/18 -CXR (11/02/18): worsening pulmonary edema -Most recent blood cultures negative -Most recent urine cultures (10/21/18) +VRE/Pseudomonas, suspect patient likely colonized -Hernandes in place -Midline removed 11/01/18 -PICC team unable to insert PICC line 11/13/18 -Flomax 0.4 mg PEG daily -Cefepime 1 g Q12H- started 10/27 -ID consulted (Vinod) -neg BCx to date Apical thrombus -Echo (07/07/18) before cardiac arrest: EF 40-45% -Echo (07/10/19) after cardiac arrest: EF 40%, LV large apical hypokinesis, large 30x20 mm soft tissue apical sessile mass suggestive of thrombus -Echo (08/17/19): LV clot, no significant change -Too high risk for HUBERT -Previously on heparin gtt, Eliquis- stopped due to anemia and vaginal bleeding -ASA 81 mg PEG daily LLE Deep vein thrombosis s/p IVC filter -Venous Doppler (07/18/18): Acute thrombosis of the left common femoral and femoral veins with severe reduction of the venous return -Resolved on repeat imaging -Previously on heparin gtt, Eliquis- stopped due to anemia and vaginal bleeding -s/p IVC filter on 08/23/18 -Vasc surgery consulted (Vicky) T2DM -A1c: 7.8 -Hypoglycemia protocol - Accuchecks changed to BID Vtach- Code blue x2 (07/10/18) - Previously on amiodarone ggt - Cardiology consulted (Nolan) NEHA, resolved - Required dialysis early in admission before code blues Shock liver, resolved -Hepatitis panel negative -HIV negative PPx, Diet, Disposition -DVT ppx: scds -GI ppx: protonix 40 via PEG q12 -Tube feeds -Pulmocare at 30 mL per hour due to hx of regurgitation -Lactobacillus 1 cap PEG Q12H -Multivitamin PEG daily -Vitamin C 1,000 PEG daily -Vitamin A&E Dispo: Comfort care, and no blood draws or invasive treatment. Comfort care measures. Abx discontinued. DNR with POLST form for comfort care in place. <North Hendrix - Last Filed: 12/04/18 19:39> Objective - Vital Signs/Intake and Output Vital Signs (last 24 hours): Temp Pulse Resp BP Pulse Ox 97.6 F 108 H 18 101/67 100 12/04/18 15:30 12/04/18 15:30 12/04/18 15:30 12/04/18 15:30 12/04/18 15:30 Intake and Output: 12/04/18 12/05/18 18:59 06:59 Intake Total 1470 Output Total 900 Balance 570 - Medications Medications: Current Medications Aspirin (Aspirin Chewable) 81 mg GT DAILY [facility] Last Admin: 12/04/18 09:46 Dose: 81 mg Dextrose (Dextrose 50% Inj) 0 ml IVP .STAT PRN; Protocol PRN Reason: Hypoglycemia Protocol Dextrose (Glutose 15) 0 gm PO .ONCE PRN; Protocol PRN Reason: Hypoglycemia Protocol Emollient Ointment (Vaseline Oint) 5 gm TOP DAILY [facility] Last Admin: 12/04/18 09:44 Dose: 5 gm Glucagon (Glucagen Diagnostic Kit) 0 mg IM .STAT PRN; Protocol PRN Reason: Hypoglycemia Protocol Sodium Chloride (Sodium Chloride 0.9%) 1,000 mls @ 50 mls/hr IV .Q20H [facility] Last Admin: 12/04/18 10:14 Dose: 50 mls/hr Methimazole (Tapazole) 10 mg PO Q8 [facility] Last Admin: 12/04/18 14:08 Dose: 10 mg Midodrine (Proamatine) 10 mg PO TID [facility] Last Admin: 12/04/18 17:48 Dose: 10 mg Ondansetron HCl (Zofran Inj) 4 mg IVP DAILY@ONCE PRN PRN Reason: Nausea/Vomiting Last Admin: 11/29/18 17:05 Dose: 4 mg Pantoprazole Sodium (Protonix Susp) 40 mg GT Q12H [facility] Last Admin: 12/04/18 09:44 Dose: 40 mg Simethicone (Mylicon Chew Tab) 80 mg PO QID [facility] Last Admin: 12/04/18 17:53 Dose: 80 mg Sodium Bicarbonate (Sodium Bicarbonate Tab) 650 mg PO BID [facility] Last Admin: 12/04/18 17:48 Dose: 650 mg - Labs Labs: 11/28/18 11:26 11/28/18 11:26 PT 13.3 SECONDS (9.7-12.2) H 10/23/18 06:05 INR 1.2 10/23/18 06:05 APTT 23 SECONDS (21-34) 10/02/18 06:10 Attending/Attestation - Attestation I have personally seen and examined this patient.: Yes I have fully participated in the care of the patient.: Yes I have reviewed all pertinent clinical information, including history, physical exam and plan: Yes Notes (Text): 12/04/18 19:38 Patient was seen and examined at 12:30 PM 12/04/18. Care of this patient was gone over with resident. Will speak with Plumonologist Dr. Lozada on 12/05/18 about removing bilateral chest tubes. Spoke with patient's who was at bedside after my exam and he was updated. North Hendrix D.O.
[2018-12-04] MEDS: Petrolatum Oint Foilpak (5 gm) TOP SCH (09:44)
[2018-12-04] MEDS: Pantoprazole 40 mg Susp UD GT SCH ×2 (09:44→21:49)
[2018-12-04] MEDS: Simethicone 80 mg Chewtab PO SCH ×4 (09:48→21:48)
[2018-12-04] MEDS ORDERED: Albumin Human 25% (12.5 gm/50 ml) IV ONE (10:00)
[2018-12-04] MEDS: Sodium Chloride 0.9% 1,000 ML IV SCH (10:14)
[2018-12-05] MEDS: Sodium Chloride 0.9% 1,000 ML IV SCH (05:57)
--- NOTE | 2018-12-05 09:58 | CP.PCM.PN ---
<Evaristo Barber - Last Filed: 12/05/18 19:26> Subjective - Date & Time of Evaluation Date of Evaluation: 12/05/18 Time of Evaluation: 09:00 - Subjective Subjective: PGY-1 medicine progress note for Dr. Maria Teresa hendrix Patient is seen and examined at bedside. No acute events overnights as per notes. Patient is on comfort measures at this time with continuing wound care. ROS unattainable due to patient's clinical status. Objective - Vital Signs/Intake and Output Vital Signs (last 24 hours): Temp Pulse Resp BP Pulse Ox 98.4 F 89 20 94/60 L 96 12/05/18 07:00 12/05/18 07:00 12/05/18 07:00 12/05/18 07:00 12/05/18 07:00 Intake and Output: 12/05/18 12/05/18 06:59 18:59 Intake Total 1970 Output Total 1070 Balance 900 - Medications Medications: Current Medications Aspirin (Aspirin Chewable) 81 mg GT DAILY [facility] Last Admin: 12/04/18 09:46 Dose: 81 mg Dextrose (Dextrose 50% Inj) 0 ml IVP .STAT PRN; Protocol PRN Reason: Hypoglycemia Protocol Dextrose (Glutose 15) 0 gm PO .ONCE PRN; Protocol PRN Reason: Hypoglycemia Protocol Emollient Ointment (Vaseline Oint) 5 gm TOP DAILY [facility] Last Admin: 12/04/18 09:44 Dose: 5 gm Glucagon (Glucagen Diagnostic Kit) 0 mg IM .STAT PRN; Protocol PRN Reason: Hypoglycemia Protocol Sodium Chloride (Sodium Chloride 0.9%) 1,000 mls @ 50 mls/hr IV .Q20H [facility] Last Admin: 12/05/18 05:57 Dose: Not Given Methimazole (Tapazole) 10 mg PO Q8 [facility] Last Admin: 12/05/18 05:57 Dose: 10 mg Midodrine (Proamatine) 10 mg PO TID [facility] Last Admin: 12/04/18 17:48 Dose: 10 mg Ondansetron HCl (Zofran Inj) 4 mg IVP DAILY@ONCE PRN PRN Reason: Nausea/Vomiting Last Admin: 11/29/18 17:05 Dose: 4 mg Pantoprazole Sodium (Protonix Susp) 40 mg GT Q12H [facility] Last Admin: 12/04/18 21:49 Dose: 40 mg Simethicone (Mylicon Chew Tab) 80 mg PO QID [facility] Last Admin: 12/04/18 21:48 Dose: 80 mg Sodium Bicarbonate (Sodium Bicarbonate Tab) 650 mg PO BID [facility] Last Admin: 12/04/18 17:48 Dose: 650 mg - Labs Labs: 11/28/18 11:26 11/28/18 11:26 PT 13.3 SECONDS (9.7-12.2) H 10/23/18 06:05 INR 1.2 10/23/18 06:05 APTT 23 SECONDS (21-34) 10/02/18 06:10 - Additional Findings Additional findings: - Constitutional Appears: Chronically Ill - Eye Exam Eye Exam: Scleral icterus - Neck Exam Additional comments: trach with vent in place, C/D/I. - Respiratory Exam Respiratory Exam: Rhonchi bilaterally. On ventilator via trach. absent: Clear to Ausculation Bilateral, NORMAL BREATHING PATTERN Additional comments: right and left chest tubes in place, c/d/i - Cardiovascular Exam Cardiovascular Exam: REGULAR RHYTHM, +S1, +S2, tachycardia at approximately 100 - GI/Abdominal Exam Additional comments: PEG tube in place w dressing c/d/i; no gross signs of infection or bleeding - Exam Additional comments: Hernandes cath in place. Rectoseal in place, no leakage noted. - Extremities Exam Increasing dependant edema bilateral upper and lower extremities. Additional comments: pressure preventing boots in place b/l feet - Neurological Exam Neurological Exam: Awake. Responsive to painful stimuli. absent: Oriented x3 - Skin Skin Exam: Dry, Intact, Normal Color, Warm. Stage 2 sacral ulcer. Assessment and Plan - Assessment and Plan (Free Text) Assessment: This is a 52 yo female originally admitted to the ICU for septic shock 2/2 to PNA/UTI worsened by cardiac arrest and anoxic brain injury. Patient found to have apical thrombus in heart. Patient is s/p trach and PEG. Patient still unable to be weaned off vent. She has had multiple complications, including DVT and infections (PNA, UTI). s/p IVC filter 08/23. s/p multiple chest tube placements Sep 19-Oct 21. s/p LP 09/15. Patient has shown minimal improvement of cognitive function during the course of this hospitalization. Patient does not have any insurance and therefore cannot be placed in rehab/NH. Multiple conversations with regarding poor prognosis- Code status now DNR. Pal liative and pastoral care have been on board. Patient on comfort measure at this time. Plan: Altered mental status/Encephalopathy- suspect anoxic encephalopathy -Code Blue 07/10 and 07/20 -Moved to [facility] surg floor 11/08 -Chest tubes x2 in place -Off sedation -Modafinil 50 mg PO daily -CT head (08/28/18): No hemorrhage or midline shift -MRI brain (09/08/18): No definite mass effect or suspicious extra axial collection. No evidence of acute or subacute brain infarction at this time. Borderline pattern of hydrocephalus. -LP 09/15/18: normal opening pressure - LDH 30, glucose 69, tot prot 67 - CSF Cx: no growth - Other CSF studies pending- called lab 11/01, they will contact [facility] for update -Neurology consulted (George/Ankit) Acute respiratory failure- s/p trach on vent, unable to wean - Tracheostomy 07/24/18, s/p bronchoscopy 08/23 - Patient had tolerated trach collars in early Aug 2018; however she has been on vent to trach since. Fi02: 40% - Bronchoscopy (08/23/18) by Dr. Lozada - Bronchial washings: Pseudomonas Aeruginosa - Fungal Cx: negative - Mycobacterial Cx: negative - Chest physiotherapy increased secretions, but pt is being suctioned by RN regularly - Most recent CT chest (10/27/18): Large bilateral pleural effusions and associated consolidations. Trace pericardial effusion. Borderline cardiomegaly. Enlarged heterogeneous partially imaged thyroid gland. - Monitor CO2 - ABG on FiO2 40 (11/02/18): pH 7.34, pCO2 29, pO2 106 - Sodium bicarb 650 mg PEG BID - Pulmonary consulted (Neville) - Pain Mgmt Consulted: Dr Clayton 5mg Ketamine IVP - may consider scopolamine patch for secretions Anemia 2/2 to Chronic Diseases +/- Dysfunctional uterine bleeding, stable -Hg stable -Stool occult blood negative -Iron normal, TIBC low, Iron saturation normal, Ferritin normal -B12, folate normal -Vaginal US: thickened endometrium -Transfused pRBC: 1 unit 07/22/18, 2 units 08/13/18, 1 unit 08/17/18, 1 unit 08/23/18, 2 unit 11/15/18 -OBGYN consulted (Gilberto)- no hysterectomy -During transfusion pt went hypotensive 77/41, PRBC adm rate increased from 120 to 150, 1L NS bolus w/ albumin IVPB on other arm VRE UTI - afebrile - UCx shows VRE sensitive to linezolid - Infectious disease recommends IV abx for total 3 weeks - cefepime IVPB 10/27 for P. aeruginosa Zyvox added 11/17 for VRE in Urine - 12/01 procal is 1.67 Sacral Decubitus Ulcer, stage 2 - Wound care consulted, f/u recs extension to anus: this will require frequent cleaning - recommending repositioning q2hrs - new specialty mattress ordered - medihoney w/ optiforam Upper Extremity swelling bilateral - upper ext dopplers : neg - holding anticoags due to vaginal bleeding - Mid Line in place, PICC pending BCs Distended abdomen -Resolving, pt had BM -AXR (10/28/18): Nonspecific bowel gas pattern with relative paucity of bowel gas. -Repeat AXR (11/02/18): Normal bowel gas pattern. -PEG tube feeds goal rate 30:Pulmocare -Reglan discontinued due to interaction with zyvox Will consider starting reglan in the future as abx have been discontinued (11/29) Pt is on zofran 4 mg IVP Q8h for nausea/vomiting CXR 11/30 shows no lobar pneumonia. Tubes in good position. -Miralax PEG BID -Simethicone 80 mg PEG QID Pleural effusions- s/p bilateral chest tubes - Multiple chest tubes and thoracenteses for effusions, most recent s/p bilateral chest tubes 10/27 - Pleural fluid from 10/13/18 - WBC 794, RBC 2083, tot cells 100, neutrophils 87% - Tot prot<3, LDH 145, glucose 146 - CT chest (10/27/18): Placment of 8.5 Macedonian pigtail drainage catheter within right and left pleural space - Most recent CXR (10/31/18): Status post bilateral chest tube placements. Marked reduction of bilateral pleural effusions, commensurate re-expansion of both lungs. - Repeat CXR 11/02: Worsening pulmonary edema - IR consulted (Partha) - Pulmonology consulted (Neville) F/u with recs on when to remove chest tubes. Currently, Dr. Hernandez covering for Dr. Lozada. Thyroid disorder - Thyroid US (07/16/18): Heterogeneous thyroid echotexture. Numerous nodules as described above. Suggest percutaneous biopsy of the following suspicious nodules; 1.8 x 0.9 x 1.7 cm right lower pole nodule, 1.0 x 0.7 x 0.9 cm right upper pole lesion with intracystic vascular nodule, complex left upper pole nodule measuring 2.1 x 1.5 x 1.8 cm. - Note: Initial thyroid studies taken before amiodarone was given- this is NOT amiodarone induced - TSH <0.02 in 07/2018, 10/31/18 TSH 18.10 - Free T4 >3 in 07/2018, 10/31/2018 free T4 0.24 - wnl TSH, free T4 on 11/08/18 - Methimazole to 10 mg PO Q8H - Off Propranolol 5 mg PO TID due to hypotension - Endocrinology consulted (Cam) Hypotension - 11/30 tachycardia at 140s, hypotensive at 80s/50s. Responded well to Albumin 25% 12.5g x 2 and 1 L NS bolus. - 12/04 Tachycardia at 140s, hypotensive. Started on NS at 50mL/hr. - Midodrine 10 mg PEG TID Atrial fibrillation w/ RVR, resolved -EKG (10/29/18): Afib HR 130 -Cardiology consulted (Nolan) Deconditioning -Patient needs aggressive continued PT/OT- PT signed off as patient does not follow directions -Nursing and move patient OOB to chair -Social work note (08/09/18): patient is undocumented, has not health insurance, discharge planning will be at home with Septic Shock 2/2 Pneumonia and Urinary Tract Infection (VRE and Pseudomonas)- urinary retention -Off pressors (previously on 3) -Afebrile since 10/21/18 -Procal 1.49 on 11/01/18, 0.66 on 10/21/18 -CXR (11/02/18): worsening pulmonary edema -Most recent blood cultures negative -Most recent urine cultures (10/21/18) +VRE/Pseudomonas, suspect patient likely colonized -Hernandes in place -Midline removed 11/01/18 -PICC team unable to insert PICC line 11/13/18 -Flomax 0.4 mg PEG daily -Cefepime 1 g Q12H- started 10/27 -ID consulted (Vinod) -neg BCx to date Apical thrombus -Echo (07/07/18) before cardiac arrest: EF 40-45% -Echo (07/10/19) after cardiac arrest: EF 40%, LV large apical hypokinesis, large 30x20 mm soft tissue apical sessile mass suggestive of thrombus -Echo (08/17/19): LV clot, no significant change -Too high risk for HUBERT -Previously on heparin gtt, Eliquis- stopped due to anemia and vaginal bleeding -ASA 81 mg PEG daily LLE Deep vein thrombosis s/p IVC filter -Venous Doppler (07/18/18): Acute thrombosis of the left common femoral and femoral veins with severe reduction of the venous return -Resolved on repeat imaging -Previously on heparin gtt, Eliquis- stopped due to anemia and vaginal bleeding -s/p IVC filter on 08/23/18 -Vasc surgery consulted (Vicky) T2DM -A1c: 7.8 -Hypoglycemia protocol - Accuchecks changed to BID Vtach- Code blue x2 (07/10/18) - Previously on amiodarone ggt - Cardiology consulted (Nolan) NEHA, resolved - Required dialysis early in admission before code blues Shock liver, resolved -Hepatitis panel negative -HIV negative PPx, Diet, Disposition -DVT ppx: scds -GI ppx: protonix 40 via PEG q12 -Tube feeds -Pulmocare at 30 mL per hour due to hx of regurgitation -Lactobacillus 1 cap PEG Q12H -Multivitamin PEG daily -Vitamin C 1,000 PEG daily -Vitamin A&E Dispo: Comfort care, and no blood draws or invasive treatment. Comfort care measures. Abx discontinued. DNR with POLST form for comfort care in place. <North Hendrix - Last Filed: 12/08/18 18:16> Objective - Vital Signs/Intake and Output Vital Signs (last 24 hours): Temp Pulse Resp BP Pulse Ox 97.9 F 98 H 20 108/66 100 12/08/18 16:00 12/08/18 16:00 12/08/18 16:00 12/08/18 16:00 12/08/18 16:00 Intake and Output: 12/08/18 12/08/18 06:59 18:59 Intake Total 920 160 Output Total 200 350 Balance 720 -190 - Medications Medications: Current Medications Albuterol/Ipratropium (Duoneb 3 Mg/0.5 Mg (3 Ml) Ud) 3 ml INH RQ6 PRN PRN Reason: Shortness of Breath Last Admin: 12/08/18 13:15 Dose: 3 ml Aspirin (Aspirin Chewable) 81 mg GT DAILY [facility] Last Admin: 12/08/18 09:35 Dose: 81 mg Dextrose (Dextrose 50% Inj) 0 ml IVP .STAT PRN; Protocol PRN Reason: Hypoglycemia Protocol Dextrose (Glutose 15) 0 gm PO .ONCE PRN; Protocol PRN Reason: Hypoglycemia Protocol Emollient Ointment (Vaseline Oint) 5 gm TOP DAILY [facility] Last Admin: 12/08/18 09:39 Dose: 5 gm Glucagon (Glucagen Diagnostic Kit) 0 mg IM .STAT PRN; Protocol PRN Reason: Hypoglycemia Protocol Methimazole (Tapazole) 10 mg PO Q8 [facility] Last Admin: 12/08/18 14:43 Dose: 10 mg Midodrine (Proamatine) 10 mg PO TID [facility] Last Admin: 12/08/18 17:05 Dose: 10 mg Ondansetron HCl (Zofran Inj) 4 mg IVP DAILY@ONCE PRN PRN Reason: Nausea/Vomiting Last Admin: 11/29/18 17:05 Dose: 4 mg Pantoprazole Sodium (Protonix Susp) 40 mg GT Q12H [facility] Last Admin: 12/08/18 09:38 Dose: 40 mg Simethicone (Mylicon Chew Tab) 80 mg PO QID [facility] Last Admin: 12/08/18 17:05 Dose: 80 mg Sodium Bicarbonate (Sodium Bicarbonate Tab) 650 mg PO BID [facility] Last Admin: 12/08/18 17:06 Dose: 650 mg - Labs Labs: 11/28/18 11:26 11/28/18 11:26 PT 13.3 SECONDS (9.7-12.2) H 10/23/18 06:05 INR 1.2 10/23/18 06:05 APTT 23 SECONDS (21-34) 10/02/18 06:10 Attending/Attestation - Attestation I have personally seen and examined this patient.: Yes I have fully participated in the care of the patient.: Yes I have reviewed all pertinent clinical information, including history, physical exam and plan: Yes Notes (Text): 12/08/18 18:15 This is a late entry. Care of this patient was gone over in detail with resident Dr. Barber. North Hendrix D.O.
[2018-12-05] MEDS: Pantoprazole 40 mg Susp UD GT SCH ×2 (10:12→21:39)
[2018-12-05] MEDS: Simethicone 80 mg Chewtab PO SCH ×4 (10:12→21:37)
[2018-12-05] MEDS: Petrolatum Oint Foilpak (5 gm) TOP SCH (10:12)
[2018-12-05] MEDS ORDERED: Albumin Human 25% (12.5 gm/50 ml) IV ONE (18:44)
[2018-12-05] MEDS: Albuterol-Ipratrop 3 mg / 0.5 (3 ml) UD INH PRN (22:10)
[2018-12-06] MEDS: Sodium Chloride 0.9% 1,000 ML IV SCH ×2 (02:03→06:08)
--- NOTE | 2018-12-06 07:45 | CP.PCM.PN ---
<Evaristo Barber - Last Filed: 12/06/18 16:44> Subjective - Date & Time of Evaluation Date of Evaluation: 12/06/18 Time of Evaluation: 07:44 - Subjective Subjective: PGY-1 medicine progress note for Dr. Maria Teresa hendrix Patient is seen and examined at bedside. Pt required Albumin 25% 12.5 gm x1 last night due to hypotension, with minimal improvement of BP. Pt has worsening third spacing, with darkened skin and skin desquamation. Patient is on comfort measures at this time with continuing wound care. Rectal tube became dislodged yesterday, will be replaced today. ROS unattainable due to patient's clinical status. Objective - Vital Signs/Intake and Output Vital Signs (last 24 hours): Temp Pulse Resp BP Pulse Ox 98.1 F 89 16 91/55 L 100 12/06/18 00:00 12/06/18 00:00 12/06/18 00:00 12/06/18 00:00 12/06/18 00:00 Intake and Output: 12/06/18 12/06/18 06:59 18:59 Intake Total 860 1160 Output Total 450 300 Balance 410 860 - Medications Medications: Current Medications Albuterol/Ipratropium (Duoneb 3 Mg/0.5 Mg (3 Ml) Ud) 3 ml INH RQ6 PRN PRN Reason: Shortness of Breath Last Admin: 12/05/18 22:10 Dose: 3 ml Aspirin (Aspirin Chewable) 81 mg GT DAILY [facility] Last Admin: 12/05/18 10:12 Dose: 81 mg Dextrose (Dextrose 50% Inj) 0 ml IVP .STAT PRN; Protocol PRN Reason: Hypoglycemia Protocol Dextrose (Glutose 15) 0 gm PO .ONCE PRN; Protocol PRN Reason: Hypoglycemia Protocol Emollient Ointment (Vaseline Oint) 5 gm TOP DAILY [facility] Last Admin: 12/05/18 10:12 Dose: 5 gm Glucagon (Glucagen Diagnostic Kit) 0 mg IM .STAT PRN; Protocol PRN Reason: Hypoglycemia Protocol Sodium Chloride (Sodium Chloride 0.9%) 1,000 mls @ 50 mls/hr IV .Q20H [facility] Last Admin: 12/06/18 06:08 Dose: 50 mls/hr Methimazole (Tapazole) 10 mg PO Q8 [facility] Last Admin: 12/06/18 05:58 Dose: 10 mg Midodrine (Proamatine) 10 mg PO TID [facility] Last Admin: 12/05/18 17:49 Dose: 10 mg Ondansetron HCl (Zofran Inj) 4 mg IVP DAILY@ONCE PRN PRN Reason: Nausea/Vomiting Last Admin: 11/29/18 17:05 Dose: 4 mg Pantoprazole Sodium (Protonix Susp) 40 mg GT Q12H [facility] Last Admin: 12/05/18 21:39 Dose: 40 mg Simethicone (Mylicon Chew Tab) 80 mg PO QID [facility] Last Admin: 12/05/18 21:37 Dose: 80 mg Sodium Bicarbonate (Sodium Bicarbonate Tab) 650 mg PO BID [facility] Last Admin: 12/05/18 17:49 Dose: 650 mg - Labs Labs: 11/28/18 11:26 11/28/18 11:26 PT 13.3 SECONDS (9.7-12.2) H 10/23/18 06:05 INR 1.2 10/23/18 06:05 APTT 23 SECONDS (21-34) 10/02/18 06:10 - Additional Findings Additional findings: - Constitutional Appears: Chronically Ill - Eye Exam Eye Exam: Scleral icterus - Neck Exam Additional comments: trach with vent in place, C/D/I. - Respiratory Exam Respiratory Exam: Rhonchi bilaterally. On ventilator via trach. absent: Clear to Ausculation Bilateral, NORMAL BREATHING PATTERN Additional comments: right and left chest tubes in place and draining, c/d/i - Cardiovascular Exam Cardiovascular Exam: REGULAR RHYTHM, +S1, +S2, tachycardia at approximately 100 - GI/Abdominal Exam Additional comments: PEG tube in place w dressing c/d/i; no gross signs of infection or bleeding - Exam Additional comments: Hernandes cath in place. Rectoseal dislodged. - Extremities Exam Increasing anasarca, with skin desquamation Additional comments: pressure preventing boots in place b/l feet - Neurological Exam Neurological Exam: Awake. Responsive to painful stimuli. absent: Oriented x3 - Skin Skin Exam: Dry, Intact, Normal Color, Warm. Stage 2 sacral ulcer. Assessment and Plan - Assessment and Plan (Free Text) Assessment: This is a 52 yo female originally admitted to the ICU for septic shock 2/2 to PNA/UTI worsened by cardiac arrest and anoxic brain injury. Patient found to have apical thrombus in heart. Patient is s/p trach and PEG. Patient still unable to be weaned off vent. She has had multiple complications, including DVT and infections (PNA, UTI). s/p IVC filter 08/23. s/p multiple chest tube placements Sep 19-Oct 21. s/p LP 09/15. Patient has shown minimal improvement of cognitive function during the course of this hospitalization. Patient does not have any insurance and therefore cannot be placed in rehab/NH. Multiple conversations with regarding poor prognosis- Code status now DNR. Palliative and pastoral care have been on board. Patient on comfort measure at this time. Plan: Altered mental status/Encephalopathy- suspect anoxic encephalopathy -Code Blue 07/10 and 07/20 -Moved to [facility] floor 11/08 -Chest tubes x2 in place -Off sedation -Modafinil 50 mg PO daily -CT head (08/28/18): No hemorrhage or midline shift -MRI brain (09/08/18): No definite mass effect or suspicious extra axial collection. No evidence of acute or subacute brain infarction at this time. Borderline pattern of hydrocephalus. -LP 09/15/18: normal opening pressure - LDH 30, glucose 69, tot prot 67 - CSF Cx: no growth - Other CSF studies pending- called lab 11/01, they will contact [employer] for update -Neurology consulted (George/Ankit) Acute respiratory failure- s/p trach on vent, unable to wean - Tracheostomy 07/24/18, s/p bronchoscopy 08/23 - Patient had tolerated trach collars in early Aug 2018; however she has been on vent to trach since. Fi02: 40% - Bronchoscopy (08/23/18) by Dr. Lozada - Bronchial washings: Pseudomonas Aeruginosa - Fungal Cx: negative - Mycobacterial Cx: negative - Chest physiotherapy increased secretions, but pt is being suctioned by RN regularly - Most recent CT chest (10/27/18): Large bilateral pleural effusions and associated consolidations. Trace pericardial effusion. Borderline cardiomegaly. Enlarged heterogeneous partially imaged thyroid gland. - Monitor CO2 - ABG on FiO2 40 (11/02/18): pH 7.34, pCO2 29, pO2 106 - Sodium bicarb 650 mg PEG BID - Pulmonary consulted (Neville) - Pain Mgmt Consulted: Dr Clayton 5mg Ketamine IVP - may consider scopolamine patch for secretions Anemia 2/2 to Chronic Diseases +/- Dysfunctional uterine bleeding, stable -Hg stable -Stool occult blood negative -Iron normal, TIBC low, Iron saturation normal, Ferritin normal -B12, folate normal -Vaginal US: thickened endometrium -Transfused pRBC: 1 unit 07/22/18, 2 units 08/13/18, 1 unit 08/17/18, 1 unit 08/23/18, 2 unit 11/15/18 -OBGYN consulted (Gilberto)- no hysterectomy -During transfusion pt went hypotensive 77/41, PRBC adm rate increased from 120 to 150, 1L NS bolus w/ albumin IVPB on other arm VRE UTI - afebrile - UCx shows VRE sensitive to linezolid - Infectious disease recommends IV abx for total 3 weeks - cefepime IVPB 10/27 for P. aeruginosa Zyvox added 11/17 for VRE in Urine - 12/01 procal is 1.67 Sacral Decubitus Ulcer, stage 2 - Wound care consulted, f/u recs extension to anus: this will require frequent cleaning - recommending repositioning q2hrs - new specialty mattress ordered - [facility] w/ optiforam Upper Extremity swelling bilateral - upper ext dopplers : neg - holding anticoags due to vaginal bleeding - Mid Line in place, PICC pending BCs Distended abdomen -Resolving, pt had BM -AXR (10/28/18): Nonspecific bowel gas pattern with relative paucity of bowel gas. -Repeat AXR (11/02/18): Normal bowel gas pattern. -PEG tube feeds goal rate 30:Pulmocare -Reglan discontinued due to interaction with zyvox Will consider starting reglan in the future as abx have been discontinued (11/29) Pt is on zofran 4 mg IVP Q8h for nausea/vomiting CXR 11/30 shows no lobar pneumonia. Tubes in good position. -Miralax PEG BID -Simethicone 80 mg PEG QID Pleural effusions- s/p bilateral chest tubes - Multiple chest tubes and thoracenteses for effusions, most recent s/p bilateral chest tubes 10/27 - Pleural fluid from 10/13/18 - WBC 794, RBC 2083, tot cells 100, neutrophils 87% - Tot prot<3, LDH 145, glucose 146 - CT chest (10/27/18): Placment of 8.5 Samoan pigtail drainage catheter within right and left pleural space - Most recent CXR (10/31/18): Status post bilateral chest tube placements. Marked reduction of bilateral pleural effusions, commensurate re-expansion of both lungs. - Repeat CXR 11/02: Worsening pulmonary edema - IR consulted (Partha) - Pulmonology consulted (Neville) Chest tubes will be removed today, as per Dr. Hernandez. Pt is on comfort care. is aware that this will lead to increase in pulmonary edema. Thyroid disorder - Thyroid US (07/16/18): Heterogeneous thyroid echotexture. Numerous nodules as described above. Suggest percutaneous biopsy of the following suspicious nodules; 1.8 x 0.9 x 1.7 cm right lower pole nodule, 1.0 x 0.7 x 0.9 cm right u pper pole lesion with intracystic vascular nodule, complex left upper pole nodule measuring 2.1 x 1.5 x 1.8 cm. - Note: Initial thyroid studies taken before amiodarone was given- this is NOT amiodarone induced - TSH <0.02 in 07/2018, 10/31/18 TSH 18.10 - Free T4 >3 in 07/2018, 10/31/2018 free T4 0.24 - wnl TSH, free T4 on 11/08/18 - Methimazole to 10 mg PO Q8H - Off Propranolol 5 mg PO TID due to hypotension - Endocrinology consulted (Irwin) Hypotension - 11/30 tachycardia at 140s, hypotensive at 80s/50s. Responded well to Albumin 25% 12.5g x 2 and 1 L NS bolus. - 3/ Tachycardia at 140s, hypotensive. Started on NS at 50mL/hr. - Midodrine 10 mg PEG TID Atrial fibrillation w/ RVR, resolved -EKG (10/29/18): Afib HR 130 -Cardiology consulted (Nolan) Deconditioning -Patient needs aggressive continued PT/OT- PT signed off as patient does not follow directions -Nursing and move patient OOB to chair -Social work note (08/09/18): patient is undocumented, has not health insurance, discharge planning will be at home with Septic Shock 2/2 Pneumonia and Urinary Tract Infection (VRE and Pseudomonas)- urinary retention -Off pressors (previously on 3) -Afebrile since 10/21/18 -Procal 1.49 on 11/01/18, 0.66 on 10/21/18 -CXR (11/02/18): worsening pulmonary edema -Most recent blood cultures negative -Most recent urine cultures (10/21/18) +VRE/Pseudomonas, suspect patient likely colonized -Hernandes in place -Midline removed 11/01/18 -PICC team unable to insert PICC line 11/13/18 -Flomax 0.4 mg PEG daily -Cefepime 1 g Q12H- started 10/27 -ID consulted (Vinod) -neg BCx to date Apical thrombus -Echo (07/07/18) before cardiac arrest: EF 40-45% -Echo (07/10/19) after cardiac arrest: EF 40%, LV large apical hypokinesis, large 30x20 mm soft tissue apical sessile mass suggestive of thrombus -Echo (08/17/19): LV clot, no significant change -Too high risk for HUBERT -Previously on heparin gtt, Eliquis- stopped due to anemia and vaginal bleeding -ASA 81 mg PEG daily LLE Deep vein thrombosis s/p IVC filter -Venous Doppler (07/18/18): Acute thrombosis of the left common femoral and femoral veins with severe reduction of the venous return -Resolved on repeat imaging -Previously on heparin gtt, Eliquis- stopped due to anemia and vaginal bleeding -s/p IVC filter on 08/23/18 -Vasc surgery consulted (Vicky) T2DM -A1c: 7.8 -Hypoglycemia protocol - Accuchecks changed to BID Vtach- Code blue x2 (07/10/18) - Previously on amiodarone ggt - Cardiology consulted (Nolan) NEHA, resolved - Required dialysis early in admission before code blues Shock liver, resolved -Hepatitis panel negative -HIV negative PPx, Diet, Disposition -DVT ppx: scds -GI ppx: protonix 40 via PEG q12 -Tube feeds -Pulmocare at 30 mL per hour due to hx of regurgitation -Lactobacillus 1 cap PEG Q12H -Multivitamin PEG daily -Vitamin C 1,000 PEG daily -Vitamin A&E Dispo: Comfort care, and no blood draws or invasive treatment. Comfort care measures. Abx discontinued. DNR with POLST form for comfort care in place. <Hendrix,North J - Last Filed: 12/08/18 18:15> Objective - Vital Signs/Intake and Output Vital Signs (last 24 hours): Temp Pulse Resp BP Pulse Ox 97.9 F 98 H 20 108/66 100 12/08/18 16:00 12/08/18 16:00 12/08/18 16:00 12/08/18 16:00 12/08/18 16:00 Intake and Output: 12/08/18 12/08/18 06:59 18:59 Intake Total 920 160 Output Total 200 350 Balance 720 -190 - Medications Medications: Current Medications Albuterol/Ipratropium (Duoneb 3 Mg/0.5 Mg (3 Ml) Ud) 3 ml INH RQ6 PRN PRN Reason: Shortness of Breath Last Admin: 12/08/18 13:15 Dose: 3 ml Aspirin (Aspirin Chewable) 81 mg GT DAILY [facility] Last Admin: 12/08/18 09:35 Dose: 81 mg Dextrose (Dextrose 50% Inj) 0 ml IVP .STAT PRN; Protocol PRN Reason: Hypoglycemia Protocol Dextrose (Glutose 15) 0 gm PO .ONCE PRN; Protocol PRN Reason: Hypoglycemia Protocol Emollient Ointment (Vaseline Oint) 5 gm TOP DAILY [facility] Last Admin: 12/08/18 09:39 Dose: 5 gm Glucagon (Glucagen Diagnostic Kit) 0 mg IM .STAT PRN; Protocol PRN Reason: Hypoglycemia Protocol Methimazole (Tapazole) 10 mg PO Q8 [facility] Last Admin: 12/08/18 14:43 Dose: 10 mg Midodrine (Proamatine) 10 mg PO TID [facility] Last Admin: 12/08/18 17:05 Dose: 10 mg Ondansetron HCl (Zofran Inj) 4 mg IVP DAILY@ONCE PRN PRN Reason: Nausea/Vomiting Last Admin: 11/29/18 17:05 Dose: 4 mg Pantoprazole Sodium (Protonix Susp) 40 mg GT Q12H [facility] Last Admin: 12/08/18 09:38 Dose: 40 mg Simethicone (Mylicon Chew Tab) 80 mg PO QID [facility] Last Admin: 12/08/18 17:05 Dose: 80 mg Sodium Bicarbonate (Sodium Bicarbonate Tab) 650 mg PO BID [facility] Last Admin: 12/08/18 17:06 Dose: 650 mg - Labs Labs: 11/28/18 11:26 11/28/18 11:26 PT 13.3 SECONDS (9.7-12.2) H 10/23/18 06:05 INR 1.2 10/23/18 06:05 APTT 23 SECONDS (21-34) 10/02/18 06:10 Attending/Attestation - Attestation I have personally seen and examined this patient.: Yes I have fully participated in the care of the patient.: Yes I have reviewed all pertinent clinical information, including history, physical exam and plan: Yes Notes (Text): 12/08/18 18:15 This is a late entry. Care of this patient was gone over in detail with resident Dr. Barber. North Hendrix D.O.
[2018-12-06] MEDS: Albuterol-Ipratrop 3 mg / 0.5 (3 ml) UD INH PRN ×2 (08:00→13:20)
[2018-12-06] MEDS: Simethicone 80 mg Chewtab PO SCH ×4 (10:16→22:08)
[2018-12-06] MEDS: Pantoprazole 40 mg Susp UD GT SCH ×2 (10:16→22:02)
[2018-12-06] MEDS: Petrolatum Oint Foilpak (5 gm) TOP SCH (10:17)
--- NOTE | 2018-12-06 16:44 | CP.PCM.PN ---
Subjective - Date & Time of Evaluation Date of Evaluation: 12/06/18 Time of Evaluation: 16:40 - Subjective Subjective: Pulmonary follow up, Covering Dr Lozada The Patient was seen and examined at the bedside, Medical records reviewed, and management issues were discussed and formulated with the house staff. Events reviewed Patient is a 53 with years old female acute respiratory failure with prolonged hospital stay due to altered mental status, encephalopathy and cardiac arrest with Anoxic brain damage. Status post tracheostomy July 24, 2018 and a status post bronchoscopy 08/24/2018 Recurrent pleural effusion is status post bilateral chest tube Patient is not a candidate for vent weaning at this time due to poor mental status Patient is now on comfort care She is not following commands Under complete aseptic technique the bilateral chest tube was removed, patient tolerated well Objective - Vital Signs/Intake and Output Vital Signs (last 24 hours): Temp Pulse Resp BP Pulse Ox 97.5 F L 95 H 20 101/64 100 12/06/18 16:00 12/06/18 16:00 12/06/18 16:00 12/06/18 16:00 12/06/18 16:00 Intake and Output: 12/06/18 12/06/18 06:59 18:59 Intake Total 860 1620 Output Total 450 600 Balance 410 1020 - Medications Medications: Current Medications Albuterol/Ipratropium (Duoneb 3 Mg/0.5 Mg (3 Ml) Ud) 3 ml INH RQ6 PRN PRN Reason: Shortness of Breath Last Admin: 12/06/18 13:20 Dose: 3 ml Aspirin (Aspirin Chewable) 81 mg GT DAILY [facility] Last Admin: 12/06/18 10:16 Dose: 81 mg Dextrose (Dextrose 50% Inj) 0 ml IVP .STAT PRN; Protocol PRN Reason: Hypoglycemia Protocol Dextrose (Glutose 15) 0 gm PO .ONCE PRN; Protocol PRN Reason: Hypoglycemia Protocol Emollient Ointment (Vaseline Oint) 5 gm TOP DAILY [facility] Last Admin: 12/06/18 10:17 Dose: 5 gm Glucagon (Glucagen Diagnostic Kit) 0 mg IM .STAT PRN; Protocol PRN Reason: Hypoglycemia Protocol Sodium Chloride (Sodium Chloride 0.9%) 1,000 mls @ 50 mls/hr IV .Q20H [facility] Last Admin: 12/06/18 06:08 Dose: 50 mls/hr Methimazole (Tapazole) 10 mg PO Q8 [facility] Last Admin: 12/06/18 14:16 Dose: 10 mg Midodrine (Proamatine) 10 mg PO TID [facility] Last Admin: 12/06/18 14:16 Dose: 10 mg Ondansetron HCl (Zofran Inj) 4 mg IVP DAILY@ONCE PRN PRN Reason: Nausea/Vomiting Last Admin: 11/29/18 17:05 Dose: 4 mg Pantoprazole Sodium (Protonix Susp) 40 mg GT Q12H [facility] Last Admin: 12/06/18 10:16 Dose: 40 mg Simethicone (Mylicon Chew Tab) 80 mg PO QID [facility] Last Admin: 12/06/18 14:16 Dose: 80 mg Sodium Bicarbonate (Sodium Bicarbonate Tab) 650 mg PO BID [facility] Last Admin: 12/06/18 10:15 Dose: 650 mg - Labs Labs: 11/28/18 11:26 11/28/18 11:26 PT 13.3 SECONDS (9.7-12.2) H 10/23/18 06:05 INR 1.2 10/23/18 06:05 APTT 23 SECONDS (21-34) 10/02/18 06:10 Assessment and Plan (1) Acute respiratory failure Status: Acute (2) Anoxic brain damage Status: Acute (3) Aspiration pneumonia Status: Acute
--- NOTE | 2018-12-07 07:20 | CP.PCM.PN ---
<Evaristo Barber - Last Filed: 12/07/18 17:08> Subjective - Date & Time of Evaluation Date of Evaluation: 12/07/18 Time of Evaluation: 07:47 - Subjective Subjective: PGY-1 medicine progress note for Dr. Maria Teresa hendrix Patient is seen and examined at bedside. Pt continues to have worsening third spacing, with darkened skin and skin integrity breakdown. Patient is on comfort measures at this time with continuing wound care. Rectal tube replaced yesterday. ROS unattainable due to patient's clinical status. Pending 's decision for morphine gtt. Objective - Vital Signs/Intake and Output Vital Signs (last 24 hours): Temp Pulse Resp BP Pulse Ox 97.8 F 93 H 20 98/63 L 100 12/07/18 00:00 12/07/18 00:00 12/07/18 00:00 12/07/18 00:00 12/07/18 00:00 Intake and Output: 12/07/18 12/07/18 06:59 18:59 Intake Total 920 Output Total 425 Balance 495 - Medications Medications: Current Medications Albuterol/Ipratropium (Duoneb 3 Mg/0.5 Mg (3 Ml) Ud) 3 ml INH RQ6 PRN PRN Reason: Shortness of Breath Last Admin: 12/06/18 13:20 Dose: 3 ml Aspirin (Aspirin Chewable) 81 mg GT DAILY [facility] Last Admin: 12/06/18 10:16 Dose: 81 mg Dextrose (Dextrose 50% Inj) 0 ml IVP .STAT PRN; Protocol PRN Reason: Hypoglycemia Protocol Dextrose (Glutose 15) 0 gm PO .ONCE PRN; Protocol PRN Reason: Hypoglycemia Protocol Emollient Ointment (Vaseline Oint) 5 gm TOP DAILY [facility] Last Admin: 12/06/18 10:17 Dose: 5 gm Glucagon (Glucagen Diagnostic Kit) 0 mg IM .STAT PRN; Protocol PRN Reason: Hypoglycemia Protocol Methimazole (Tapazole) 10 mg PO Q8 [facility] Last Admin: 12/07/18 05:41 Dose: 10 mg Midodrine (Proamatine) 10 mg PO TID [facility] Last Admin: 12/06/18 17:38 Dose: 10 mg Ondansetron HCl (Zofran Inj) 4 mg IVP DAILY@ONCE PRN PRN Reason: Nausea/Vomiting Last Admin: 11/29/18 17:05 Dose: 4 mg Pantoprazole Sodium (Protonix Susp) 40 mg GT Q12H [facility] Last Admin: 12/06/18 22:02 Dose: 40 mg Simethicone (Mylicon Chew Tab) 80 mg PO QID [facility] Last Admin: 12/06/18 22:08 Dose: 80 mg Sodium Bicarbonate (Sodium Bicarbonate Tab) 650 mg PO BID [facility] Last Admin: 12/06/18 22:03 Dose: 650 mg - Labs Labs: 11/28/18 11:26 11/28/18 11:26 PT 13.3 SECONDS (9.7-12.2) H 10/23/18 06:05 INR 1.2 10/23/18 06:05 APTT 23 SECONDS (21-34) 10/02/18 06:10 - Additional Findings Additional findings: - Constitutional Appears: Chronically Ill - Eye Exam Eye Exam: Scleral icterus - Neck Exam Additional comments: trach with vent in place, C/D/I. - Respiratory Exam Respiratory Exam: Rhonchi bilaterally. On ventilator via trach. absent: Clear to Ausculation Bilateral, NORMAL BREATHING PATTERN Additional comments: right and left chest tubes in place and draining, c/d/i - Cardiovascular Exam Cardiovascular Exam: REGULAR RHYTHM, +S1, +S2, tachycardia at approximately 100 - GI/Abdominal Exam Additional comments: PEG tube in place w dressing c/d/i; no gross signs of infection or bleeding - Exam Additional comments: Hernandes cath in place. Rectoseal dislodged. - Extremities Exam Increasing anasarca, with skin desquamation Additional comments: pressure preventing boots in place b/l feet - Neurological Exam Neurological Exam: Awake. Responsive to painful stimuli. absent: Oriented x3 - Skin Skin Exam: Dry, Intact, Normal Color, Warm. Stage 2 sacral ulcer. Assessment and Plan - Assessment and Plan (Free Text) Assessment: This is a 52 yo female originally admitted to the ICU for septic shock 2/2 to PNA/UTI worsened by cardiac arrest and anoxic brain injury. Patient found to have apical thrombus in heart. Patient is s/p trach and PEG. Patient still unable to be weaned off vent. She has had multiple complications, including DVT and infections (PNA, UTI). s/p IVC filter 08/23. s/p multiple chest tube placements Sep 19-Oct 21. s/p LP 09/15. Patient has shown minimal improvement of cognitive function during the course of this hospitalization. Patient does not have any insurance and therefore cannot be placed in rehab/NH. Multiple conversations with regarding poor prognosis- Code status now DNR. Palliative and pastoral care have been on board. Patient on comfort measure at this time. Plan: Altered mental status/Encephalopathy- suspect anoxic encephalopathy -Code Blue 07/10 and 07/20 -Moved to [facility] floor 11/08 -Chest tubes x2 in place -Off sedation -Modafinil 50 mg PO daily -CT head (08/28/18): No hemorrhage or midline shift -MRI brain (09/08/18): No definite mass effect or suspicious extra axial collection. No evidence of acute or subacute brain infarction at this time. Borderline pattern of hydrocephalus. -LP 09/15/18: normal opening pressure - LDH 30, glucose 69, tot prot 67 - CSF Cx: no growth - Other CSF studies pending- called lab 11/01, they will contact [facility] [facility] for update -Neurology consulted (George/Ankit) Acute respiratory failure- s/p trach on vent, unable to wean - Tracheostomy 07/24/18, s/p bronchoscopy 08/23 - Patient had tolerated trach collars in early Aug 2018; however she has been on vent to trach since. Fi02: 40% - Bronchoscopy (08/23/18) by Dr. Lozada - Bronchial washings: Pseudomonas Aeruginosa - Fungal Cx: negative - Mycobacterial Cx: negative - Chest physiotherapy increased secretions, but pt is being suctioned by RN regularly - Most recent CT chest (10/27/18): Large bilateral pleural effusions and associated consolidations. Trace pericardial effusion. Borderline cardiomegaly. Enlarged heterogeneous partially imaged thyroid gland. - Monitor CO2 - ABG on FiO2 40 (11/02/18): pH 7.34, pCO2 29, pO2 106 - Sodium bicarb 650 mg PEG BID - Pulmonary consulted (Neville) - Pain Mgmt Consulted: Dr Clayton 5mg Ketamine IVP - may consider scopolamine patch for secretions Anemia 2/2 to Chronic Diseases +/- Dysfunctional uterine bleeding, stable -Hg stable -Stool occult blood negative -Iron normal, TIBC low, Iron saturation normal, Ferritin normal -B12, folate normal -Vaginal US: thickened endometrium -Transfused pRBC: 1 unit 10/20/18, 2 units 08/13/18, 1 unit 08/17/18, 1 unit 08/23/18, 2 unit 11/15/18 -OBGYN consulted (Gilberto)- no hysterectomy -During transfusion pt went hypotensive 77/41, PRBC adm rate increased from 120 to 150, 1L NS bolus w/ albumin IVPB on other arm VRE UTI - afebrile - UCx shows VRE sensitive to linezolid - Infectious disease recommends IV abx for total 3 weeks - cefepime IVPB 10/27 for P. aeruginosa Zyvox added 11/17 for VRE in Urine - 12/01 procal is 1.67 Sacral Decubitus Ulcer, stage 2 - Wound care consulted, f/u recs extension to anus: this will require frequent cleaning - recommending repositioning q2hrs - [facility] Upper Extremity swelling bilateral - upper ext dopplers : neg - holding anticoags due to vaginal bleeding - Mid Line in place, PICC pending BCs Distended abdomen -Resolving, pt had BM -AXR (10/28/18): Nonspecific bowel gas pattern with relative paucity of bowel gas. -Repeat AXR (11/02/18): Normal bowel gas pattern. -PEG tube feeds goal rate 30:Pulmocare -Reglan discontinued due to interaction with zyvox Will consider starting reglan in the future as abx have been discontinued (11/29) Pt is on zofran 4 mg IVP Q8h for nausea/vomiting CXR 11/30 shows no lobar pneumonia. Tubes in good position. -Miralax PEG BID -Simethicone 80 mg PEG QID Pleural effusions- s/p bilateral chest tubes - Multiple chest tubes and thoracenteses for effusions, most recent s/p bilateral chest tubes 10/27 - Pleural fluid from 10/13/18 - WBC 794, RBC 2083, tot cells 100, neutrophils 87% - Tot prot<3, LDH 145, glucose 146 - CT chest (10/27/18): Placment of 8.5 Niuean pigtail drainage catheter within right and left pleural space - Most recent CXR (10/31/18): Status post bilateral chest tube placements. Marked reduction of bilateral pleural effusions, commensurate re-expansion of both lungs. - Repeat CXR 11/02: Worsening pulmonary edema - IR consulted (Partha) - Pulmonology consulted (Neville) Chest tubes will be removed today, as per Dr. Hernandez. Pt is on comfort care. is aware that this will lead to increase in pulmonary edema. Thyroid disorder - Thyroid US (07/16/18): Heterogeneous thyroid echotexture. Numerous nodules as described above. Suggest percutaneous biopsy of the following suspicious nodules; 1.8 x 0.9 x 1.7 cm right lower pole nodule, 1.0 x 0.7 x 0.9 cm right upper pole lesion with intracystic vascular nodule, complex left upper pole nodule measuring 2.1 x 1.5 x 1.8 cm. - Note: Initial thyroid studies taken before amiodarone was given- this is NOT amiodarone induced - TSH <0.02 in 07/2018, 10/31/18 TSH 18.10 - Free T4 >3 in 07/2018, 10/31/2018 free T4 0.24 - wnl TSH, free T4 on 11/08/18 - Methimazole to 10 mg PO Q8H - Off Propranolol 5 mg PO TID due to hypotension - Endocrinology consulted (Irwin) Hypotension - 11/30 tachycardia at 140s, hypotensive at 80s/50s. Responded well to Albumin 25% 12.5g x 2 and 1 L NS bolus. - 12/04 Tachycardia at 140s, hypotensive. Started on NS at 50mL/hr. - Midodrine 10 mg PEG TID Atrial fibrillation w/ RVR, resolved -EKG (10/29/18): Afib HR 130 -Cardiology consulted (Nolan) Deconditioning -Patient needs aggressive continued PT/OT- PT signed off as patient does not follow directions -Nursing and move patient OOB to chair -Social work note (08/09/18): patient is undocumented, has not health insurance, discharge planning will be at home with Septic Shock 2/2 Pneumonia and Urinary Tract Infection (VRE and Pseudomonas)- urinary retention -Off pressors (previously on 3) -Afebrile since 10/21/18 -Procal 1.49 on 11/01/18, 0.66 on 10/21/18 -CXR (11/02/18): worsening pulmonary edema -Most recent blood cultures negative -Most recent urine cultures (10/21/18) +VRE/Pseudomonas, suspect patient likely colonized -Hernandes in place -Midline removed 11/01/18 -PICC team unable to insert PICC line 11/13/18 -Flomax 0.4 mg PEG daily -Cefepime 1 g Q12H- started 10/27 -ID consulted (Vinod) -neg BCx to date Apical thrombus -Echo (07/07/18) before cardiac arrest: EF 40-45% -Echo (07/10/19) after cardiac arrest: EF 40%, LV large apical hypokinesis, large 30x20 mm soft tissue apical sessile mass suggestive of thrombus -Echo (08/17/19): LV clot, no significant change -Too high risk for HUBERT -Previously on heparin gtt, Eliquis- stopped due to anemia and vaginal bleeding -ASA 81 mg PEG daily LLE Deep vein thrombosis s/p IVC filter -Venous Doppler (07/18/18): Acute thrombosis of the left common femoral and femoral veins with severe reduction of the venous return -Resolved on repeat imaging -Previously on heparin gtt, Eliquis- stopped due to anemia and vaginal bleeding -s/p IVC filter on 08/23/18 -Vasc surgery consulted (Vicky) T2DM -A1c: 7.8 -Hypoglycemia protocol - Accuchecks changed to BID Vtach- Code blue x2 (07/10/18) - Previously on amiodarone ggt - Cardiology consulted (Nolan) NEHA, resolved - Required dialysis early in admission before code blues Shock liver, resolved -Hepatitis panel negative -HIV negative PPx, Diet, Disposition -DVT ppx: scds -GI ppx: protonix 40 via PEG q12 -Tube feeds -Pulmocare at 30 mL per hour due to hx of regurgitation -Lactobacillus 1 cap PEG Q12H -Multivitamin PEG daily -Vitamin C 1,000 PEG daily -Vitamin A&E Dispo: Comfort care, and no blood draws or invasive treatment. Comfort care measures. Abx discontinued. Pending 's decision, pt salvatore be placed on morphine gtt. He reports that he needs 2 days to discuss with family. DNR with POLST form for comfort care in place. <North Hendrix - Last Filed: 12/08/18 18:15> Objective - Vital Signs/Intake and Output Vital Signs (last 24 hours): Temp Pulse Resp BP Pulse Ox 97.9 F 98 H 20 108/66 100 12/08/18 16:00 12/08/18 16:00 12/08/18 16:00 12/08/18 16:00 12/08/18 16:00 Intake and Output: 12/08/18 12/08/18 06:59 18:59 Intake Total 920 160 Output Total 200 350 Balance 720 -190 - Medications Medications: Current Medications Albuterol/Ipratropium (Duoneb 3 Mg/0.5 Mg (3 Ml) Ud) 3 ml INH RQ6 PRN PRN Reason: Shortness of Breath Last Admin: 12/08/18 13:15 Dose: 3 ml Aspirin (Aspirin Chewable) 81 mg GT DAILY [facility] Last Admin: 12/08/18 09:35 Dose: 81 mg Dextrose (Dextrose 50% Inj) 0 ml IVP .STAT PRN; Protocol PRN Reason: Hypoglycemia Protocol Dextrose (Glutose 15) 0 gm PO .ONCE PRN; Protocol PRN Reason: Hypoglycemia Protocol Emollient Ointment (Vaseline Oint) 5 gm TOP DAILY [facility] Last Admin: 12/08/18 09:39 Dose: 5 gm Glucagon (Glucagen Diagnostic Kit) 0 mg IM .STAT PRN; Protocol PRN Reason: Hypoglycemia Protocol Methimazole (Tapazole) 10 mg PO Q8 [facility] Last Admin: 12/08/18 14:43 Dose: 10 mg Midodrine (Proamatine) 10 mg PO TID [facility] Last Admin: 12/08/18 17:05 Dose: 10 mg Ondansetron HCl (Zofran Inj) 4 mg IVP DAILY@ONCE PRN PRN Reason: Nausea/Vomiting Last Admin: 11/29/18 17:05 Dose: 4 mg Pantoprazole Sodium (Protonix Susp) 40 mg GT Q12H [facility] Last Admin: 12/08/18 09:38 Dose: 40 mg Simethicone (Mylicon Chew Tab) 80 mg PO QID [facility] Last Admin: 12/08/18 17:05 Dose: 80 mg Sodium Bicarbonate (Sodium Bicarbonate Tab) 650 mg PO BID [facility] Last Admin: 12/08/18 17:06 Dose: 650 mg - Labs Labs: 11/28/18 11:26 11/28/18 11:26 PT 13.3 SECONDS (9.7-12.2) H 10/23/18 06:05 INR 1.2 10/23/18 06:05 APTT 23 SECONDS (21-34) 10/02/18 06:10 Attending/Attestation - Attestation I have personally seen and examined this patient.: Yes I have fully participated in the care of the patient.: Yes I have reviewed all pertinent clinical information, including history, physical exam and plan: Yes Notes (Text): 12/08/18 18:15 This is a late entry. Care of this patient was gone over in detail with resident Dr. Barber. North Hendrix D.O.
[2018-12-07] MEDS: Pantoprazole 40 mg Susp UD GT SCH ×2 (09:55→21:05)
[2018-12-07] MEDS: Simethicone 80 mg Chewtab PO SCH ×4 (09:55→21:05)
[2018-12-07] MEDS: Petrolatum Oint Foilpak (5 gm) TOP SCH (09:56)
[2018-12-08] MEDS: Albuterol-Ipratrop 3 mg / 0.5 (3 ml) UD INH PRN ×2 (07:35→13:15)
--- NOTE | 2018-12-08 08:58 | CP.PCM.PN ---
<Evaristo Barber - Last Filed: 12/08/18 15:59> Subjective - Date & Time of Evaluation Date of Evaluation: 12/08/18 Time of Evaluation: 09:00 - Subjective Subjective: PGY-1 medicine progress note for Dr. Maria Teresa hendrix Patient is seen and examined at bedside. Pt continues to have worsening skin breakdown. Patient is on comfort measures at this time with continuing wound care. ROS unattainable due to patient's clinical status. Pending 's decision for morphine gtt. Objective - Vital Signs/Intake and Output Vital Signs (last 24 hours): Temp Pulse Resp BP Pulse Ox 98 F 107 H 23 99/66 L 100 12/08/18 08:00 12/08/18 08:00 12/08/18 08:00 12/08/18 08:00 12/08/18 08:00 Intake and Output: 12/08/18 12/08/18 06:59 18:59 Intake Total 920 Output Total 200 Balance 720 - Medications Medications: Current Medications Albuterol/Ipratropium (Duoneb 3 Mg/0.5 Mg (3 Ml) Ud) 3 ml INH RQ6 PRN PRN Reason: Shortness of Breath Last Admin: 12/06/18 13:20 Dose: 3 ml Aspirin (Aspirin Chewable) 81 mg GT DAILY [facility] Last Admin: 12/07/18 09:55 Dose: 81 mg Dextrose (Dextrose 50% Inj) 0 ml IVP .STAT PRN; Protocol PRN Reason: Hypoglycemia Protocol Dextrose (Glutose 15) 0 gm PO .ONCE PRN; Protocol PRN Reason: Hypoglycemia Protocol Emollient Ointment (Vaseline Oint) 5 gm TOP DAILY [facility] Last Admin: 12/07/18 09:56 Dose: 5 gm Glucagon (Glucagen Diagnostic Kit) 0 mg IM .STAT PRN; Protocol PRN Reason: Hypoglycemia Protocol Methimazole (Tapazole) 10 mg PO Q8 [facility] Last Admin: 12/08/18 05:40 Dose: 10 mg Midodrine (Proamatine) 10 mg PO TID [facility] [place] Last Admin: 12/07/18 17:36 Dose: 10 mg Ondansetron HCl (Zofran Inj) 4 mg IVP DAILY@ONCE PRN PRN Reason: Nausea/Vomiting Last Admin: 11/29/18 17:05 Dose: 4 mg Pantoprazole Sodium (Protonix Susp) 40 mg GT Q12H [facility] [place] Last Admin: 12/07/18 21:05 Dose: 40 mg Simethicone (Mylicon Chew Tab) 80 mg PO QID [facility] Last Admin: 12/07/18 21:05 Dose: 80 mg Sodium Bicarbonate (Sodium Bicarbonate Tab) 650 mg PO BID [facility] Last Admin: 12/07/18 17:35 Dose: 650 mg - Labs Labs: 11/28/18 11:26 11/28/18 11:26 PT 13.3 SECONDS (9.7-12.2) H 10/23/18 06:05 INR 1.2 10/23/18 06:05 APTT 23 SECONDS (21-34) 10/02/18 06:10 - Additional Findings Additional findings: - Constitutional Appears: Chronically Ill - Eye Exam Eye Exam: Scleral icterus - Neck Exam Additional comments: trach with vent in place, C/D/I. - Respiratory Exam Respiratory Exam: Rhonchi bilaterally. On ventilator via trach. absent: Clear to Ausculation Bilateral, NORMAL BREATHING PATTERN Additional comments: right and left chest tubes in place and draining, c/d/i - Cardiovascular Exam Cardiovascular Exam: REGULAR RHYTHM, +S1, +S2, tachycardia at approximately 100 - GI/Abdominal Exam Additional comments: PEG tube in place w dressing c/d/i; no gross signs of infection or bleeding - Exam Additional comments: Hernandes cath in place. Rectoseal dislodged. - Extremities Exam Increasing anasarca, with skin desquamation Additional comments: pressure preventing boots in place b/l feet - Neurological Exam Neurological Exam: Awake. Responsive to painful stimuli. absent: Oriented x3 - Skin Skin Exam: Dry, Intact, Warm. Stage 2 sacral ulcer. New skin breakdown on left ischial tuberosity. Worsening of hemosiderin skin changes. Assessment and Plan - Assessment and Plan (Free Text) Assessment: This is a 52 yo female originally admitted to the ICU for septic shock 2/2 to PNA/UTI worsened by cardiac arrest and anoxic brain injury. Patient found to have apical thrombus in heart. Patient is s/p trach and PEG. Patient still unable to be weaned off vent. She has had multiple complications, including DVT and infections (PNA, UTI). s/p IVC filter 08/23. s/p multiple chest tube placements Sep 19-Oct 21. s/p LP 09/15. Patient has shown minimal improvement of cognitive function during the course of this hospitalization. Patient does not have any insurance and therefore cannot be placed in rehab/NH. Multiple conversations with regarding poor prognosis- Code status now DNR. Palliative and pastoral care have been on board. Patient on comfort measure at this time. Plan: Altered mental status/Encephalopathy- suspect anoxic encephalopathy -Code Blue 07/10 and 07/20 -Moved to med surg floor 11/08 -Chest tubes x2 in place -Off sedation -Modafinil 50 mg PO daily -CT head (08/28/18): No hemorrhage or midline shift -MRI brain (09/08/18): No definite mass effect or suspicious extra axial collection. No evidence of acute or subacute brain infarction at this time. Borderline pattern of hydrocephalus. -LP 09/15/18: normal opening pressure - LDH 30, glucose 69, tot prot 67 - CSF Cx: no growth - Other CSF studies pending- called lab 11/01, they will contact [facility] for update -Neurology consulted (George/Ankit) Acute respiratory failure- s/p trach on vent, unable to wean - Tracheostomy 07/24/18, s/p bronchoscopy 08/23 - Patient had tolerated trach collars in early Aug 2018; however she has been on vent to trach since. Fi02: 40% - Bronchoscopy (08/23/18) by Dr. Lozada - Bronchial washings: Pseudomonas Aeruginosa - Fungal Cx: negative - Mycobacterial Cx: negative - Chest physiotherapy increased secretions, but pt is being suctioned by RN regularly - Most recent CT chest (10/27/18): Large bilateral pleural effusions and associated consolidations. Trace pericardial effusion. Borderline cardiomegaly. Enlarged heterogeneous partially imaged thyroid gland. - Monitor CO2 - ABG on FiO2 40 (11/02/18): pH 7.34, pCO2 29, pO2 106 - Sodium bicarb 650 mg PEG BID - Pulmonary consulted (Neville) - Pain Mgmt Consulted: Dr Clayton 5mg Ketamine IVP - may consider scopolamine patch for secretions Anemia 2/2 to Chronic Diseases +/- Dysfunctional uterine bleeding, stable -Hg stable -Stool occult blood negative -Iron normal, TIBC low, Iron saturation normal, Ferritin normal -B12, folate normal -Vaginal US: thickened endometrium -Transfused pRBC: 1 unit 07/22/18, 2 units 08/13/18, 1 unit 08/17/18, 1 unit 08/23/18, 2 unit 11/15/18 -OBGYN consulted (Gilberto)- no hysterectomy -During transfusion pt went hypotensive 77/41, PRBC adm rate increased from 120 to 150, 1L NS bolus w/ albumin IVPB on other arm VRE UTI - afebrile - UCx shows VRE sensitive to linezolid - Infectious disease recommends IV abx for total 3 weeks - cefepime IVPB 10/27 for P. aeruginosa Zyvox added 11/17 for VRE in Urine - 12/01 procal is 1.67 Sacral Decubitus Ulcer, stage 2 - Wound care consulted, f/u recs extension to anus: this will require frequent cleaning - recommending repositioning q2hrs - new specialty mattress ordered - medihoney w/ optiforam Upper Extremity swelling bilateral - upper ext dopplers : neg - holding anticoags due to vaginal bleeding - Mid Line in place, PICC pending BCs Distended abdomen -Resolving, pt had BM -AXR (10/28/18): Nonspecific bowel gas pattern with relative paucity of bowel gas. -Repeat AXR (11/02/18): Normal bowel gas pattern. -PEG tube feeds goal rate 30:Pulmocare -Reglan discontinued due to interaction with zyvox Will consider starting reglan in the future as abx have been discontinued (11/29) Pt is on zofran 4 mg IVP Q8h for nausea/vomiting CXR 11/30 shows no lobar pneumonia. Tubes in good position. -Miralax PEG BID -Simethicone 80 mg PEG QID Pleural effusions- s/p bilateral chest tubes - Multiple chest tubes and thoracenteses for effusions, most recent s/p bilateral chest tubes 10/27 - Pleural fluid from 10/13/18 - WBC 794, RBC 2083, tot cells 100, neutrophils 87% - Tot prot<3, LDH 145, glucose 146 - CT chest (10/27/18): Placment of 8.5 [place] pigtail drainage catheter within right and left pleural space - Most recent CXR (10/31/18): Status post bilateral chest tube placements. Marked reduction of bilateral pleural effusions, commensurate re-expansion of both lungs. - Repeat CXR 11/02: Worsening pulmonary edema - IR consulted (Partha) - Pulmonology consulted (Neville) Chest tubes will be removed today, as per Dr. Hernandez. Pt is on comfort care. is aware that this will lead to increase in pulmonary edema. Thyroid disorder - Thyroid US (07/16/18): Heterogeneous thyroid echotexture. Numerous nodules as described above. Suggest percutaneous biopsy of the following suspicious nodules; 1.8 x 0.9 x 1.7 cm right lower pole nodule, 1.0 x 0.7 x 0.9 cm right upper pole lesion with intracystic vascular nodule, complex left upper pole nodule measuring 2.1 x 1.5 x 1.8 cm. - Note: Initial thyroid studies taken before amiodarone was given- this is NOT amiodarone induced - TSH <0.02 in 07/2018, 10/31/18 TSH 18.10 - Free T4 >3 in 07/2018, 10/31/2018 free T4 0.24 - wnl TSH, free T4 on 11/08/18 - Methimazole to 10 mg PO Q8H - Off Propranolol 5 mg PO TID due to hypotension - Endocrinology consulted (Irwin) Hypotension - 11/30 tachycardia at 140s, hypotensive at 80s/50s. Responded well to Albumin 25% 12.5g x 2 and 1 L NS bolus. - 12/04 Tachycardia at 140s, hypotensive. Started on NS at 50mL/hr. - Midodrine 10 mg PEG TID Atrial fibrillation w/ RVR, resolved -EKG (10/29/18): Afib HR 130 -Cardiology consulted (Nolan) Deconditioning -Patient needs aggressive continued PT/OT- PT signed off as patient does not follow directions -Nursing and move patient OOB to chair -Social work note (08/09/18): patient is undocumented, has not health insurance, discharge planning will be at home with Septic Shock 2/2 Pneumonia and Urinary Tract Infection (VRE and Pseudomonas)- urinary retention -Off pressors (previously on 3) -Afebrile since 10/21/18 -Procal 1.49 on 11/01/18, 0.66 on 10/21/18 -CXR (11/02/18): worsening pulmonary edema -Most recent blood cultures negative -Most recent urine cultures (10/21/18) +VRE/Pseudomonas, suspect patient likely colonized -Hernandes in place -Midline removed 11/01/18 -PICC team unable to insert PICC line 11/13/18 -Flomax 0.4 mg PEG daily -Cefepime 1 g Q12H- started 10/27 -ID consulted (Vinod) -neg BCx to date Apical thrombus -Echo (07/07/18) before cardiac arrest: EF 40-45% -Echo (07/10/19) after cardiac arrest: EF 40%, LV large apical hypokinesis, large 30x20 mm soft tissue apical sessile mass suggestive of thrombus -Echo (08/17/19): LV clot, no significant change -Too high risk for HUBERT -Previously on heparin gtt, Eliquis- stopped due to anemia and vaginal bleeding -ASA 81 mg PEG daily LLE Deep vein thrombosis s/p IVC filter -Venous Doppler (07/18/18): Acute thrombosis of the left common femoral and femoral veins with severe reduction of the venous return -Resolved on repeat imaging -Previously on heparin gtt, Eliquis- stopped due to anemia and vaginal bleeding -s/p IVC filter on 08/23/18 -Vasc surgery consulted (Vicky) T2DM -A1c: 7.8 -Hypoglycemia protocol - Accuchecks changed to BID Vtach- Code blue x2 (07/10/18) - Previously on amiodarone ggt - Cardiology consulted (Nolan) NEHA, resolved - Required dialysis early in admission before code blues Shock liver, resolved -Hepatitis panel negative -HIV negative PPx, Diet, Disposition -DVT ppx: scds -GI ppx: protonix 40 via PEG q12 -Tube feeds -Pulmocare at 30 mL per hour due to hx of regurgitation -Lactobacillus 1 cap PEG Q12H -Multivitamin PEG daily -Vitamin C 1,000 PEG daily -Vitamin A&E Dispo: Comfort care, and no blood draws or invasive treatment. Comfort care measures. Abx discontinued. Pending 's decision, pt will be placed on morphine gtt. DNR with POLST form for comfort care in place. <North Hendrix - Last Filed: 12/08/18 18:15> Objective - Vital Signs/Intake and Output Vital Signs (last 24 hours): Temp Pulse Resp BP Pulse Ox 97.9 F 98 H 20 108/66 100 12/08/18 16:00 12/08/18 16:00 12/08/18 16:00 12/08/18 16:00 12/08/18 16:00 Intake and Output: 12/08/18 12/08/18 06:59 18:59 Intake Total 920 160 Output Total 200 350 Balance 720 -190 - Medications Medications: Current Medications Albuterol/Ipratropium (Duoneb 3 Mg/0.5 Mg (3 Ml) Ud) 3 ml INH RQ6 PRN PRN Reason: Shortness of Breath Last Admin: 12/08/18 13:15 Dose: 3 ml Aspirin (Aspirin Chewable) 81 mg GT DAILY [facility] Last Admin: 12/08/18 09:35 Dose: 81 mg Dextrose (Dextrose 50% Inj) 0 ml IVP .STAT PRN; Protocol PRN Reason: Hypoglycemia Protocol Dextrose (Glutose 15) 0 gm PO .ONCE PRN; Protocol PRN Reason: Hypoglycemia Protocol Emollient Ointment (Vaseline Oint) 5 gm TOP DAILY [facility] [place] Last Admin: 12/08/18 09:39 Dose: 5 gm Glucagon (Glucagen Diagnostic Kit) 0 mg IM .STAT PRN; Protocol PRN Reason: Hypoglycemia Protocol Methimazole (Tapazole) 10 mg PO Q8 [facility] Last Admin: 12/08/18 14:43 Dose: 10 mg Midodrine (Proamatine) 10 mg PO TID [facility] Last Admin: 12/08/18 17:05 Dose: 10 mg Ondansetron HCl (Zofran Inj) 4 mg IVP DAILY@ONCE PRN PRN Reason: Nausea/Vomiting Last Admin: 11/29/18 17:05 Dose: 4 mg Pantoprazole Sodium (Protonix Susp) 40 mg GT Q12H [facility] [place] Last Admin: 12/08/18 09:38 Dose: 40 mg Simethicone (Mylicon Chew Tab) 80 mg PO QID [facility] Last Admin: 12/08/18 17:05 Dose: 80 mg Sodium Bicarbonate (Sodium Bicarbonate Tab) 650 mg PO BID [facility] Last Admin: 12/08/18 17:06 Dose: 650 mg - Labs Labs: 11/28/18 11:26 11/28/18 11:26 PT 13.3 SECONDS (9.7-12.2) H 10/23/18 06:05 INR 1.2 10/23/18 06:05 APTT 23 SECONDS (21-34) 10/02/18 06:10 Attending/Attestation - Attestation I have personally seen and examined this patient.: Yes I have fully participated in the care of the patient.: Yes I have reviewed all pertinent clinical information, including history, physical exam and plan: Yes Notes (Text): 12/08/18 18:12 Patient was seen and examined at 12:00 PM Care of this patient was gone over in detail with resident Dr. Barber. Spoke at length again with who was at bedside. Explained the anasarca, leading to leaking of hemosiderin into the skin, which will lead to breakdown in skin (new area of skin sloughing noted on the right lateral buttock), leading to skin infection, leading to sepsis and . Explained again to the poor prognosis and that likelyhood of pain with sepsis. He is considering treatment with morphine to help with pain but would like more time to think before deciding. North Hendrix D.O.
[2018-12-08] MEDS: Pantoprazole 40 mg Susp UD GT SCH ×2 (09:38→21:19)
[2018-12-08] MEDS: Petrolatum Oint Foilpak (5 gm) TOP SCH (09:39)
[2018-12-08] MEDS: Simethicone 80 mg Chewtab PO SCH ×4 (09:42→21:19)
--- NOTE | 2018-12-09 05:35 | CP.PCM.PN ---
<Troy Alva - Last Filed: 12/09/18 05:59> Subjective - Date & Time of Evaluation Date of Evaluation: 12/09/18 Time of Evaluation: 05:59 - Subjective Subjective: PGY-[address] Maria Teresa hendrix Patient is seen and examined at bedside. Patient is on comfort measures at this time. no acute events reported overnight by nurse. ROS unattainable due to patient's clinical status. Objective - Vital Signs/Intake and Output Vital Signs (last 24 hours): Temp Pulse Resp BP Pulse Ox 98.5 F 94 H 21 97/58 L 99 12/09/18 00:00 12/09/18 00:00 12/09/18 00:00 12/09/18 00:00 12/09/18 00:00 Intake and Output: 12/08/18 12/09/18 18:59 06:59 Intake Total 160 460 Output Total 350 250 Balance -190 210 - Medications Medications: Current Medications Albuterol/Ipratropium (Duoneb 3 Mg/0.5 Mg (3 Ml) Ud) 3 ml INH RQ6 PRN PRN Reason: Shortness of Breath Last Admin: 12/08/18 13:15 Dose: 3 ml Aspirin (Aspirin Chewable) 81 mg GT DAILY REPLACED BY [facility] Last Admin: 12/08/18 09:35 Dose: 81 mg Dextrose (Dextrose 50% Inj) 0 ml IVP .STAT PRN; Protocol PRN Reason: Hypoglycemia Protocol Dextrose (Glutose 15) 0 gm PO .ONCE PRN; Protocol PRN Reason: Hypoglycemia Protocol Emollient Ointment (Vaseline Oint) 5 gm TOP DAILY REPLACED BY [facility] Last Admin: 12/08/18 09:39 Dose: 5 gm Glucagon (Glucagen Diagnostic Kit) 0 mg IM .STAT PRN; Protocol PRN Reason: Hypoglycemia Protocol Methimazole (Tapazole) 10 mg PO Q8 REPLACED BY [facility] Last Admin: 12/09/18 05:28 Dose: 10 mg Midodrine (Proamatine) 10 mg PO TID [facility] Last Admin: 12/08/18 17:05 Dose: 10 mg Ondansetron HCl (Zofran Inj) 4 mg IVP DAILY@ONCE PRN PRN Reason: Nausea/Vomiting Last Admin: 11/29/18 17:05 Dose: 4 mg Pantoprazole Sodium (Protonix Susp) 40 mg GT Q12H [facility] Last Admin: 12/08/18 21:19 Dose: 40 mg Simethicone (Mylicon Chew Tab) 80 mg PO QID REPLACED BY [facility] Last Admin: 12/08/18 21:19 Dose: 80 mg Sodium Bicarbonate (Sodium Bicarbonate Tab) 650 mg PO BID REPLACED BY [facility] Last Admin: 12/08/18 17:06 Dose: 650 mg - Labs Labs: 11/28/18 11:26 11/28/18 11:26 PT 13.3 SECONDS (9.7-12.2) H 10/23/18 06:05 INR 1.2 10/23/18 06:05 APTT 23 SECONDS (21-34) 10/02/18 06:10 - Constitutional Appears: Chronically Ill - Eye Exam Eye Exam: Scleral icterus - ENT Exam Additional comments: trach with vent in place, c/d/i - Respiratory Exam Respiratory Exam: Rhonchi. absent: Clear to Ausculation Bilateral, NORMAL BREATHING PATTERN Additional comments: Chest tube b/l c/d/i at site of insertion - Cardiovascular Exam Cardiovascular Exam: Tachycardia, REGULAR RHYTHM, +S1, +S2 - Exam Additional comments: Hernandes and rectoseal in place - Back Exam Additional comments: pressure preventing boots b/l - Neurological Exam Neurological Exam: Awake. absent: Oriented x3 - Skin Skin Exam: Dry, Warm. absent: Intact Assessment and Plan - Assessment and Plan (Free Text) Assessment: This is a 52 yo female originally admitted to the ICU for septic shock 2/2 to PNA/UTI worsened by cardiac arrest and anoxic brain injury. Patient found to have apical thrombus in heart. Patient is s/p trach and PEG. Patient still unable to be weaned off vent. She has had multiple complications, including DVT and infections (PNA, UTI). s/p IVC filter 08/23. s/p multiple chest tube p lacements Sep 19-Oct 21. s/p LP 09/15. Patient has shown minimal improvement of cognitive function during the course of this hospitalization. Patient does not have any insurance and therefore cannot be placed in rehab/NH. Multiple conversations with regarding poor prognosis- Code status now DNR. Palliative and pastoral care have been on board. Patient on comfort measure at this time. Plan: Altered mental status/Encephalopathy- suspect anoxic encephalopathy -Code Blue 07/10 and 07/20 -Moved to med surg floor 11/08 -Chest tubes x2 in place -Off sedation -Modafinil 50 mg PO daily -CT head (08/28/18): No hemorrhage or midline shift -MRI brain (09/08/18): No definite mass effect or suspicious extra axial collection. No evidence of acute or subacute brain infarction at this time. Borderline pattern of hydrocephalus. -LP 09/15/18: normal opening pressure - LDH 30, glucose 69, tot prot 67 - CSF Cx: no growth - Other CSF studies pending- called lab 11/01, they will contact [facility] for update -Neurology consulted (George/Ankit) Acute respiratory failure- s/p trach on vent, unable to wean - Tracheostomy 07/24/18, s/p bronchoscopy 08/23 - Patient had tolerated trach collars in early Aug 2018; however she has been on vent to trach since. Fi02: 40% - Bronchoscopy (08/23/18) by Dr. Lozada - Bronchial washings: Pseudomonas Aeruginosa - Fungal Cx: negative - Mycobacterial Cx: negative - Chest physiotherapy increased secretions, but pt is being suctioned by RN regularly - Most recent CT chest (10/27/18): Large bilateral pleural effusions and associated consolidations. Trace pericardial effusion. Borderline cardiomegaly. Enlarged heterogeneous partially imaged thyroid gland. - Monitor CO2 - ABG on FiO2 40 (11/02/18): pH 7.34, pCO2 29, pO2 106 - Sodium bicarb 650 mg PEG BID - Pulmonary consulted (Neville) - Pain Mgmt Consulted: Dr Clayton 5mg Ketamine IVP - may consider scopolamine patch for secretions Anemia 2/2 to Chronic Diseases +/- Dysfunctional uterine bleeding, stable -Hg stable -Stool occult blood negative -Iron normal, TIBC low, Iron saturation normal, Ferritin normal -B12, folate normal -Vaginal US: thickened endometrium -Transfused pRBC: 1 unit 07/22/18, 2 units 08/13/18, 1 unit 08/17/18, 1 unit 08/23/18, 2 unit 11/15/18 -OBGYN consulted (Gilberto)- no hysterectomy -During transfusion pt went hypotensive 77/41, PRBC adm rate increased from 120 to 150, 1L NS bolus w/ albumin IVPB on other arm VRE UTI - afebrile - UCx shows VRE sensitive to linezolid - Infectious disease recommends IV abx for total 3 weeks - cefepime IVPB 10/27 for P. aeruginosa Zyvox added 11/17 for VRE in Urine - 12/01 procal is 1.67 Sacral Decubitus Ulcer, stage 2 - Wound care consulted, f/u recs extension to anus: this will require frequent cleaning - recommending repositioning q2hrs - new specialty mattress ordered - medihoney w/ optiforam Upper Extremity swelling bilateral - upper ext dopplers : neg - holding anticoags due to vaginal bleeding - Mid Line in place, PICC pending BCs Distended abdomen -Resolving, pt had BM -AXR (10/28/18): Nonspecific bowel gas pattern with relative paucity of bowel gas. -Repeat AXR (11/02/18): Normal bowel gas pattern. -PEG tube feeds goal rate 30:Pulmocare -Reglan discontinued due to interaction with zyvox Will consider starting reglan in the future as abx have been discontinued (11/29) Pt is on zofran 4 mg IVP Q8h for nausea/vomiting CXR 11/30 shows no lobar pneumonia. Tubes in good position. -Miralax PEG BID -Simethicone 80 mg PEG QID Pleural effusions- s/p bilateral chest tubes - Multiple chest tubes and thoracenteses for effusions, most recent s/p bilateral chest tubes 10/27 - Pleural fluid from 10/13/18 - WBC 794, RBC 2083, tot cells 100, neutrophils 87% - Tot prot<3, LDH 145, glucose 146 - CT chest (10/27/18): Placment of 8.5 Hungarian pigtail drainage catheter within right and left pleural space - Most recent CXR (10/31/18): Status post bilateral chest tube placements. Marked reduction of bilateral pleural effusions, commensurate re-expansion of both lungs. - Repeat CXR 11/02: Worsening pulmonary edema - IR consulted (Partha) - Pulmonology consulted (Neville) Chest tubes will be removed today, as per Dr. Hernandez. Pt is on comfort care. is aware that this will lead to increase in pulmonary edema. Thyroid disorder - Thyroid US (07/16/18): Heterogeneous thyroid echotexture. Numerous nodules as described above. Suggest percutaneous biopsy of the following suspicious nodules; 1.8 x 0.9 x 1.7 cm right lower pole nodule, 1.0 x 0.7 x 0.9 cm right upper pole lesion with intracystic vascular nodule, complex left upper pole nodule measuring 2.1 x 1.5 x 1.8 cm. - Note: Initial thyroid studies taken before amiodarone was given- this is NOT amiodarone induced - TSH <0.02 in 07/2018, 10/31/18 TSH 18.10 - Free T4 >3 in 07/2018, 10/31/2018 free T4 0.24 - wnl TSH, free T4 on 11/08/18 - Methimazole to 10 mg PO Q8H - Off Propranolol 5 mg PO TID due to hypotension - Endocrinology consulted (Irwin) Hypotension - 11/30 tachycardia at 140s, hypotensive at 80s/50s. Responded well to Albumin 25% 12.5g x 2 and 1 L NS bolus. - 12/04 Tachycardia at 140s, hypotensive. Started on NS at 50mL/hr. - Midodrine 10 mg PEG TID Atrial fibrillation w/ RVR, resolved -EKG (10/29/18): Afib HR 130 -Cardiology consulted (Nolan) Deconditioning -Patient needs aggressive continued PT/OT- PT signed off as patient does not follow directions -Nursing and move patient OOB to chair -Social work note (08/09/18): patient is undocumented, has not health insurance, discharge planning will be at home with Septic Shock 2/2 Pneumonia and Urinary Tract Infection (VRE and Pseudomonas)- urinary retention -Off pressors (previously on 3) -Afebrile since 10/21/18 -Procal 1.49 on 11/01/18, 0.66 on 10/21/18 -CXR (11/02/18): worsening pulmonary edema -Most recent blood cultures negative -Most recent urine cultures (10/21/18) +VRE/Pseudomonas, suspect patient likely colonized -Hernandes in place -Midline removed 11/01/18 -PICC team unable to insert PICC line 11/13/18 -Flomax 0.4 mg PEG daily -Cefepime 1 g Q12H- started 10/27 -ID consulted (Vinod) -neg BCx to date Apical thrombus -Echo (07/07/18) before cardiac arrest: EF 40-45% -Echo (07/10/19) after cardiac arrest: EF 40%, LV large apical hypokinesis, large 30x20 mm soft tissue apical sessile mass suggestive of thrombus -Echo (08/17/19): LV clot, no significant change -Too high risk for HUBERT -Previously on heparin gtt, Eliquis- stopped due to anemia and vaginal bleeding -ASA 81 mg PEG daily LLE Deep vein thrombosis s/p IVC filter -Venous Doppler (07/18/18): Acute thrombosis of the left common femoral and femoral veins with severe reduction of the venous return -Resolved on repeat imaging -Previously on heparin gtt, Eliquis- stopped due to anemia and vaginal bleeding -s/p IVC filter on 08/23/18 -Vasc surgery consulted (Vicky) T2DM -A1c: 7.8 -Hypoglycemia protocol - Accuchecks changed to BID Vtach- Code blue x2 (07/10/18) - Previously on amiodarone ggt - Cardiology consulted (Nolan) NEHA, resolved - Required dialysis early in admission before code blues Shock liver, resolved -Hepatitis panel negative -HIV negative PPx, Diet, Disposition -DVT ppx: scds -GI ppx: protonix 40 via PEG q12 -Tube feeds -Pulmocare at 30 mL per hour due to hx of regurgitation -Lactobacillus 1 cap PEG Q12H -Multivitamin PEG daily -Vitamin C 1,000 PEG daily -Vitamin A&E Dispo: Comfort care, and no blood draws or invasive treatment. Comfort care measures. Abx discontinued. Pending 's decision, pt will be placed on morphine gtt. DNR with POLST form for comfort care in place. <North Hendrix - Last Filed: 12/09/18 15:59> Objective - Vital Signs/Intake and Output Vital Signs (last 24 hours): Temp Pulse Resp BP Pulse Ox 98.3 F 95 H 20 103/65 100 12/09/18 08:04 12/09/18 08:04 12/09/18 08:04 12/09/18 08:04 12/09/18 08:04 Intake and Output: 12/09/18 12/09/18 06:59 18:59 Intake Total 460 Output Total 250 Balance 210 - Medications Medications: Current Medications Albuterol/Ipratropium (Duoneb 3 Mg/0.5 Mg (3 Ml) Ud) 3 ml INH RQ6 PRN PRN Reason: Shortness of Breath Last Admin: 12/09/18 13:20 Dose: 3 ml Aspirin (Aspirin Chewable) 81 mg GT DAILY REPLACED BY [facility] Last Admin: 12/09/18 09:16 Dose: 81 mg Dextrose (Dextrose 50% Inj) 0 ml IVP .STAT PRN; Protocol PRN Reason: Hypoglycemia Protocol Dextrose (Glutose 15) 0 gm PO .ONCE PRN; Protocol PRN Reason: Hypoglycemia Protocol Emollient Ointment (Vaseline Oint) 5 gm TOP DAILY REPLACED BY [facility] Last Admin: 12/09/18 11:32 Dose: 5 gm Glucagon (Glucagen Diagnostic Kit) 0 mg IM .STAT PRN; Protocol PRN Reason: Hypoglycemia Protocol Methimazole (Tapazole) 10 mg PO Q8 REPLACED BY [facility] Last Admin: 12/09/18 13:30 Dose: 10 mg Midodrine (Proamatine) 10 mg PO TID REPLACED BY [facility] Last Admin: 12/09/18 13:30 Dose: 10 mg Ondansetron HCl (Zofran Inj) 4 mg IVP DAILY@ONCE PRN PRN Reason: Nausea/Vomiting Last Admin: 11/29/18 17:05 Dose: 4 mg Pantoprazole Sodium (Protonix Susp) 40 mg GT Q12H REPLACED BY [facility] Last Admin: 12/09/18 09:25 Dose: 40 mg Simethicone (Mylicon Chew Tab) 80 mg PO QID REPLACED BY [facility] Last Admin: 12/09/18 13:30 Dose: 80 mg Sodium Bicarbonate (Sodium Bicarbonate Tab) 650 mg PO BID REPLACED BY [facility] Last Admin: 12/09/18 09:24 Dose: 650 mg - Labs Labs: 11/28/18 11:26 11/28/18 11:26 PT 13.3 SECONDS (9.7-12.2) H 10/23/18 06:05 INR 1.2 10/23/18 06:05 APTT 23 SECONDS (21-34) 10/02/18 06:10 Attending/Attestation - Attestation I have personally seen and examined this patient.: Yes I have fully participated in the care of the patient.: Yes I have reviewed all pertinent clinical information, including history, physical exam and plan: Yes Notes (Text): 12/09/18 15:55 Patient was seen this morning at 8:30 AM Again noted extensive anasarca with dark discoloration of the skin which is now breaking down, particularly on the Right Lateral Buttock but now the bilateral arms as well Extensive conversation with throughout the week and I have explained the progression of the edema, leading to hemosiderin leakage into skin causing discoloration, and then breakdown which is now occuring, leading to likely infection and sepsis and . He was not present at time of my exam and he has been instructed to reach out to me at any time once his decision is made concerning starting morphine. North Hendrix D.O.
[2018-12-09] MEDS: Albuterol-Ipratrop 3 mg / 0.5 (3 ml) UD INH PRN ×2 (07:35→13:20)
[2018-12-09] MEDS: Simethicone 80 mg Chewtab PO SCH ×4 (09:22→21:46)
[2018-12-09] MEDS: Pantoprazole 40 mg Susp UD GT SCH ×2 (09:25→21:46)
[2018-12-09] MEDS: Petrolatum Oint Foilpak (5 gm) TOP SCH (11:32)
--- NOTE | 2018-12-10 01:18 | CP.PCM.PN ---
<Troy Alva - Last Filed: 12/10/18 01:16> Subjective - Date & Time of Evaluation Date of Evaluation: 12/10/18 Time of Evaluation: 04:00 - Subjective Subjective: PGY-[address] [place] N[place]itt service Patient is seen and examined at bedside. As per nurse, patient is seen to be grunting at times. tracheostomy with vent in place, urine mcintyre collecting about 300 cc of urine, little output from flexi seal bag. Patient observed to be in no acute distress. observe excoriation of skin in upper, lower extremities and abdominal area. ROS unttainable due to patient's status. Objective - Vital Signs/Intake and Output Vital Signs (last 24 hours): Temp Pulse Resp BP Pulse Ox 98.6 F 100 H 20 108/66 100 12/10/18 00:00 12/10/18 00:00 12/10/18 00:00 12/10/18 00:00 12/10/18 00:00 Intake and Output: 12/09/18 12/10/18 18:59 07:59 Intake Total 460 Output Total 250 Balance 210 - Medications Medications: Current Medications Albuterol/Ipratropium (Duoneb 3 Mg/0.5 Mg (3 Ml) Ud) 3 ml INH RQ6 PRN PRN Reason: Shortness of Breath Last Admin: 12/09/18 13:20 Dose: 3 ml Aspirin (Aspirin Chewable) 81 mg GT DAILY [facility] Last Admin: 12/09/18 09:16 Dose: 81 mg Dextrose (Dextrose 50% Inj) 0 ml IVP .STAT PRN; Protocol PRN Reason: Hypoglycemia Protocol Dextrose (Glutose 15) 0 gm PO .ONCE PRN; Protocol PRN Reason: Hypoglycemia Protocol Emollient Ointment (Vaseline Oint) 5 gm TOP DAILY [facility] Last Admin: 12/09/18 11:32 Dose: 5 gm Glucagon (Glucagen Diagnostic Kit) 0 mg IM .STAT PRN; Protocol PRN Reason: Hypoglycemia Protocol Methimazole (Tapazole) 10 mg PO Q8 [facility] Last Admin: 12/09/18 21:46 Dose: 10 mg Midodrine (Proamatine) 10 mg PO TID [facility] Last Admin: 12/09/18 17:48 Dose: 10 mg Ondansetron HCl (Zofran Inj) 4 mg IVP DAILY@ONCE PRN PRN Reason: Nausea/Vomiting Last Admin: 11/29/18 17:05 Dose: 4 mg Pantoprazole Sodium (Protonix Susp) 40 mg GT Q12H [facility] Last Admin: 12/09/18 21:46 Dose: 40 mg Simethicone (Mylicon Chew Tab) 80 mg PO QID [facility] Last Admin: 12/09/18 21:46 Dose: 80 mg Sodium Bicarbonate (Sodium Bicarbonate Tab) 650 mg PO BID [facility] Last Admin: 12/09/18 17:47 Dose: 650 mg - Labs Labs: 11/28/18 11:26 11/28/18 11:26 PT 13.3 SECONDS (9.7-12.2) H 10/23/18 06:05 INR 1.2 10/23/18 06:05 APTT 23 SECONDS (21-34) 10/02/18 06:10 - Constitutional Appears: No Acute Distress, Chronically Ill - Head Exam Head Exam: ATRAUMATIC, NORMAL INSPECTION, NORMOCEPHALIC - Eye Exam Eye Exam: PERRL - ENT Exam ENT Exam: Mucous Membranes Dry, Normal Exam - Respiratory Exam Respiratory Exam: Rhonchi. absent: NORMAL BREATHING PATTERN Additional comments: trach with vent in place, C/D/I. - Cardiovascular Exam Cardiovascular Exam: Tachycardia, REGULAR RHYTHM, +S1, +S2 - GI/Abdominal Exam GI & Abdominal Exam: Soft Additional comments: PEG in place with dressing c/d/i - Extremities Exam Additional comments: b/l pressure boots swelling noted upper extremities - Neurological Exam Neurological Exam: Awake - Skin Skin Exam: Dry Assessment and Plan - Assessment and Plan (Free Text) Assessment: This is a 52 yo female originally admitted to the ICU for septic shock 2/2 to PNA/UTI worsened by cardiac arrest and anoxic brain injury. Patient found to have apical thrombus in heart. Patient is s/p trach and PEG. Patient still unable to be weaned off vent. She has had multiple complications, including DVT and infections (PNA, UTI). s/p IVC filter 08/23. s/p multiple chest tube placements Sep 19-Oct 21. s/p LP 09/15. Patient has shown minimal improvement of cognitive function during the course of this hospitalization. Patient does not have any insurance and therefore cannot be placed in rehab/NH. Multiple conversations with regarding poor prognosis- Code status now DNR. Palliative and pastoral care have been on board. Patient on comfort measure at this time. Plan: Altered mental status/Encephalopathy- suspect anoxic encephalopathy -Code Blue 07/10 and 07/20 -Moved to [facility] floor 11/08 -Chest tubes x2 in place -Off sedation -Modafinil 50 mg PO daily -CT head (08/28/18): No hemorrhage or midline shift -MRI brain (09/08/18): No definite mass effect or suspicious extra axial collection. No evidence of acute or subacute brain infarction at this time. Borderline pattern of hydrocephalus. -LP 09/15/18: normal opening pressure - LDH 30, glucose 69, tot prot 67 - CSF Cx: no growth - Other CSF studies pending- called lab 11/01, they will contact [facility] for update -Neurology consulted (George/Ankit) Acute respiratory failure- s/p trach on vent, unable to wean - Tracheostomy 07/24/18, s/p bronchoscopy 08/23 - Patient had tolerated trach collars in early Aug 2018; however she has been on vent to trach since. Fi02: 40% - Bronchoscopy (08/23/18) by Dr. Lozada - Bronchial washings: Pseudomonas Aeruginosa - Fungal Cx: negative - Mycobacterial Cx: negative - Chest physiotherapy increased secretions, but pt is being suctioned by RN regularly - Most recent CT chest (10/27/18): Large bilateral pleural effusions and associated consolidations. Trace pericardial effusion. Borderline cardiomegaly. Enlarged heterogeneous partially imaged thyroid gland. - Monitor CO2 - ABG on FiO2 40 (11/02/18): pH 7.34, pCO2 29, pO2 106 - Sodium bicarb 650 mg PEG BID - Pulmonary consulted (Neville) - Pain Mgmt Consulted: Dr Clayton 5mg Ketamine IVP - may consider scopolamine patch for secretions Anemia 2/2 to Chronic Diseases +/- Dysfunctional uterine bleeding, stable -Hg stable -Stool occult blood negative -Iron normal, TIBC low, Iron saturation normal, Ferritin normal -B12, folate normal -Vaginal US: thickened endometrium -Transfused pRBC: 1 unit 07/22/18, 2 units 08/13/18, 1 unit 08/17/18, 1 unit 08/23/18, 2 unit 11/15/18 -OBGYN consulted (Gilberto)- no hysterectomy -During transfusion pt went hypotensive 77/41, PRBC adm rate increased from 120 to 150, 1L NS bolus w/ albumin IVPB on other arm VRE UTI - afebrile - UCx shows VRE sensitive to linezolid - Infectious disease recommends IV abx for total 3 weeks - cefepime IVPB 10/27 for P. aeruginosa Zyvox added 11/17 for VRE in Urine - 12/01 procal is 1.67 Sacral Decubitus Ulcer, stage 2 - Wound care consulted, f/u recs extension to anus: this will require frequent cleaning - recommending repositioning q2hrs - new specialty mattress [facility] - continue wound care Upper Extremity swelling bilateral - upper ext dopplers : neg - holding anticoags due to vaginal bleeding - Mid Line in place, PICC pending BCs Distended abdomen -Resolving, pt had BM -AXR (10/28/18): Nonspecific bowel gas pattern with relative paucity of bowel gas. -Repeat AXR (11/02/18): Normal bowel gas pattern. -PEG tube feeds goal rate 30:Pulmocare -Reglan discontinued due to interaction with zyvox Will consider starting reglan in the future as abx have been discontinued (11/29) Pt is on zofran 4 mg IVP Q8h for nausea/vomiting CXR 11/30 shows no lobar pneumonia. Tubes in good position. -Miralax PEG BID -Simethicone 80 mg PEG QID Pleural effusions- s/p bilateral chest tubes - Multiple chest tubes and thoracenteses for effusions, most recent s/p bilateral chest tubes 10/27 - Pleural fluid from 10/13/18 - WBC 794, RBC 2083, tot cells 100, neutrophils 87% - Tot prot<3, LDH 145, glucose 146 - CT chest (10/27/18): Placment of 8.5 Italian pigtail drainage catheter within right and left pleural space - Most recent CXR (10/31/18): Status post bilateral chest tube placements. Marked reduction of bilateral pleural effusions, commensurate re-expansion of both lungs. - Repeat CXR 11/02: Worsening pulmonary edema - IR consulted (Partha) - Pulmonology consulted (Neville) Chest tubes will be removed today, as per Dr. Hernandez. Pt is on comfort care. is aware that this will lead to increase in pulmonary edema. Thyroid disorder - Thyroid US (07/16/18): Heterogeneous thyroid echotexture. Numerous nodules as described above. Suggest percutaneous biopsy of the following suspicious nodules; 1.8 x 0.9 x 1.7 cm right lower pole nodule, 1.0 x 0.7 x 0.9 cm right upper pole lesion with intracystic vascular nodule, complex left upper pole no dule measuring 2.1 x 1.5 x 1.8 cm. - Note: Initial thyroid studies taken before amiodarone was given- this is NOT amiodarone induced - TSH <0.02 in 07/2018, 10/31/18 TSH 18.10 - Free T4 >3 in 07/2018, 10/31/2018 free T4 0.24 - wnl TSH, free T4 on 11/08/18 - Methimazole to 10 mg PO Q8H - Off Propranolol 5 mg PO TID due to hypotension - Endocrinology consulted (Cam) Hypotension - 11/30 tachycardia at 140s, hypotensive at 80s/50s. Responded well to Albumin 25% 12.5g x 2 and 1 L NS bolus. - 12/04 Tachycardia at 140s, hypotensive. Started on NS at 50mL/hr. - Midodrine 10 mg PEG TID Atrial fibrillation w/ RVR, resolved -EKG (10/29/18): Afib HR 130 -Cardiology consulted (Nolan) Deconditioning -Patient needs aggressive continued PT/OT- PT signed off as patient does not follow directions -Nursing and move patient OOB to chair -Social work note (08/09/18): patient is undocumented, has not health insurance, discharge planning will be at home with Septic Shock 2/2 Pneumonia and Urinary Tract Infection (VRE and Pseudomonas)- urinary retention -Off pressors (previously on 3) -Afebrile since 10/21/18 -Procal 1.49 on 11/01/18, 0.66 on 10/21/18 -CXR (11/02/18): worsening pulmonary edema -Most recent blood cultures negative -Most recent urine cultures (10/21/18) +VRE/Pseudomonas, suspect patient likely colonized -Mcintyre in place -Midline removed 11/01/18 -PICC team unable to insert PICC line 11/13/18 -Flomax 0.4 mg PEG daily -Cefepime 1 g Q12H- started 10/27 -ID consulted (Vinod) -neg BCx to date Apical thrombus -Echo (07/07/18) before cardiac arrest: EF 40-45% -Echo (07/10/19) after cardiac arrest: EF 40%, LV large apical hypokinesis, large 30x20 mm soft tissue apical sessile mass suggestive of thrombus -Echo (08/17/19): LV clot, no significant change -Too high risk for HUBERT -Previously on heparin gtt, Eliquis- stopped due to anemia and vaginal bleeding -ASA 81 mg PEG daily LLE Deep vein thrombosis s/p IVC filter -Venous Doppler (07/18/18): Acute thrombosis of the left common femoral and femoral veins with severe reduction of the venous return -Resolved on repeat imaging -Previously on heparin gtt, Eliquis- stopped due to anemia and vaginal bleeding -s/p IVC filter on 08/23/18 -Vasc surgery consulted (Vicky) Generalized skin excoriation - seen in arms and abdominal area and LE - most likely due to generalized edema/anasarca - skin protectant, cover with optifoam as needed T2DM -A1c: 7.8 -Hypoglycemia protocol - Accuchecks changed to BID Vtach- Code blue x2 (07/10/18) - Previously on amiodarone ggt - Cardiology consulted (Nolan) NEHA, resolved - Required dialysis early in admission before code blues Shock liver, resolved -Hepatitis panel negative -HIV negative PPx, Diet, Disposition -DVT ppx: scds -GI ppx: protonix 40 via PEG q12 -Tube feeds -Pulmocare at 30 mL per hour due to hx of regurgitation -Lactobacillus 1 cap PEG Q12H -Multivitamin PEG daily -Vitamin C 1,000 PEG daily -Vitamin A&E Dispo: Comfort care, and no blood draws or invasive treatment. Comfort care measures. Abx discontinued. Pending 's decision on morphine drip DNR with POLST form for comfort care in place. <[place] N[place]itt - Last Filed: 12/10/18 18:36> Objective - Vital Signs/Intake and Output Vital Signs (last 24 hours): Temp Pulse Resp BP Pulse Ox 97.7 F 84 20 75/41 L 100 12/10/18 16:00 12/10/18 16:00 12/10/18 16:00 12/10/18 16:00 12/10/18 16:00 Intake and Output: 12/10/18 12/10/18 06:59 18:59 Intake Total Output Total 250 Balance -250 - Medications Medications: Current Medications Albuterol/Ipratropium (Duoneb 3 Mg/0.5 Mg (3 Ml) Ud) 3 ml INH RQ6 PRN PRN Reason: Shortness of Breath Last Admin: 12/10/18 11:25 Dose: 3 ml Aspirin (Aspirin Chewable) 81 mg GT DAILY [facility] Last Admin: 12/10/18 09:30 Dose: 81 mg Dextrose (Dextrose 50% Inj) 0 ml IVP .STAT PRN; Protocol PRN Reason: Hypoglycemia Protocol Dextrose (Glutose 15) 0 gm PO .ONCE PRN; Protocol PRN Reason: Hypoglycemia Protocol Emollient Ointment (Vaseline Oint) 5 gm TOP DAILY [facility] Last Admin: 12/10/18 09:31 Dose: 5 gm Glucagon (Glucagen Diagnostic Kit) 0 mg IM .STAT PRN; Protocol PRN Reason: Hypoglycemia Protocol Methimazole (Tapazole) 10 mg PO Q8 [facility] Last Admin: 12/10/18 13:20 Dose: 10 mg Midodrine (Proamatine) 10 mg PO TID [facility] Last Admin: 12/10/18 17:16 Dose: 10 mg Ondansetron HCl (Zofran Inj) 4 mg IVP DAILY@ONCE PRN PRN Reason: Nausea/Vomiting Last Admin: 11/29/18 17:05 Dose: 4 mg Pantoprazole Sodium (Protonix Susp) 40 mg GT Q12H [facility] Last Admin: 12/10/18 09:30 Dose: 40 mg Simethicone (Mylicon Chew Tab) 80 mg PO QID [facility] Last Admin: 12/10/18 17:16 Dose: 80 mg Sodium Bicarbonate (Sodium Bicarbonate Tab) 650 mg PO BID [facility] Last Admin: 12/10/18 17:16 Dose: 650 mg - Labs Labs: 11/28/18 11:26 11/28/18 11:26 PT 13.3 SECONDS (9.7-12.2) H 10/23/18 06:05 INR 1.2 10/23/18 06:05 APTT 23 SECONDS (21-34) 10/02/18 06:10 Attending/Attestation - Attestation I have personally seen and examined this patient.: Yes I have fully participated in the care of the patient.: Yes I have reviewed all pertinent clinical information, including history, physical exam and plan: Yes Notes (Text): 12/10/18 18:32 Patient was seen and examined at 12:30 PM was present and again extensive conversation with him concerning the desquamation/breakdown of patient's skin leading to ulceration on the right lateral buttock and worsening of the already present ulceration in the sacrum/rectal area and the potential for infection leading to sepsis. Explained that I believed that there was a high probability that because of this, that patient was in pain and that I recommended starting Morphine Drip as a means to provide comfort to her and a peaceful passing. He stated that he will take this into consideration and let medicine team know his decision. [place] N[place]itt D.O.
[2018-12-10] MEDS: Albuterol-Ipratrop 3 mg / 0.5 (3 ml) UD INH PRN ×2 (07:25→11:25)
[2018-12-10] MEDS: Pantoprazole 40 mg Susp UD GT SCH ×2 (09:30→21:24)
[2018-12-10] MEDS: Simethicone 80 mg Chewtab PO SCH ×4 (09:31→21:24)
[2018-12-10] MEDS: Petrolatum Oint Foilpak (5 gm) TOP SCH (09:31)
--- NOTE | 2018-12-11 07:53 | CP.PCM.PN ---
<Evaristo Barber - Last Filed: 12/11/18 12:45> Subjective - Date & Time of Evaluation Date of Evaluation: 12/11/18 Time of Evaluation: 09:00 - Subjective Subjective: Medicine progress note for Dr. Leahy Patient is seen and examined at bedside. Pt is resting comfortably and in no acute distress. Pt's midline IV access was dislodged overnight, will be evaluated for midline. Patient observed to be in no acute distress. ROS unt tainable due to patient's status. Objective - Vital Signs/Intake and Output Vital Signs (last 24 hours): Temp Pulse Resp BP Pulse Ox 98.4 F 88 20 98/61 L 100 12/11/18 00:00 12/11/18 00:00 12/11/18 00:00 12/11/18 00:00 12/11/18 00:00 Intake and Output: 12/11/18 12/11/18 06:59 18:59 Intake Total 460 Output Total 250 Balance 210 - Medications Medications: Current Medications Aspirin (Aspirin Chewable) 81 mg GT DAILY [facility] Last Admin: 12/10/18 09:30 Dose: 81 mg Dextrose (Dextrose 50% Inj) 0 ml IVP .STAT PRN; Protocol PRN Reason: Hypoglycemia Protocol Dextrose (Glutose 15) 0 gm PO .ONCE PRN; Protocol PRN Reason: Hypoglycemia Protocol Emollient Ointment (Vaseline Oint) 5 gm TOP DAILY [facility] Last Admin: 12/10/18 09:31 Dose: 5 gm Glucagon (Glucagen Diagnostic Kit) 0 mg IM .STAT PRN; Protocol PRN Reason: Hypoglycemia Protocol Methimazole (Tapazole) 10 mg PO Q8 [facility] Last Admin: 12/11/18 06:16 Dose: 10 mg Midodrine (Proamatine) 10 mg PO TID [facility] Last Admin: 12/10/18 17:16 Dose: 10 mg Ondansetron HCl (Zofran Inj) 4 mg IVP DAILY@ONCE PRN PRN Reason: Nausea/Vomiting Last Admin: 11/29/18 17:05 Dose: 4 mg Pantoprazole Sodium (Protonix Susp) 40 mg GT Q12H [facility] Last Admin: 12/10/18 21:24 Dose: 40 mg Simethicone (Mylicon Chew Tab) 80 mg PO QID [facility] Last Admin: 12/10/18 21:24 Dose: 80 mg Sodium Bicarbonate (Sodium Bicarbonate Tab) 650 mg PO BID [facility] Last Admin: 12/10/18 17:16 Dose: 650 mg - Labs Labs: 11/28/18 11:26 11/28/18 11:26 PT 13.3 SECONDS (9.7-12.2) H 10/23/18 06:05 INR 1.2 10/23/18 06:05 APTT 23 SECONDS (21-34) 10/02/18 06:10 - Additional Findings Additional findings: - Constitutional Appears: No Acute Distress, Chronically Ill - Head Exam Head Exam: ATRAUMATIC, NORMAL INSPECTION, NORMOCEPHALIC - Eye Exam Eye Exam: PERRL - ENT Exam ENT Exam: Mucous Membranes Dry, Normal Exam - Respiratory Exam Respiratory Exam: Rhonchi. absent: NORMAL BREATHING PATTERN Additional comments: trach with vent in place, C/D/I. - Cardiovascular Exam Cardiovascular Exam: Tachycardia, REGULAR RHYTHM, +S1, +S2 - GI/Abdominal Exam GI & Abdominal Exam: Soft Additional comments: PEG in place with dressing c/d/i - Extremities Exam Anasarca Additional comments: b/l pressure boots swelling noted upper extremities - Neurological Exam Neurological Exam: Awake - Skin Skin Exam: Dry, with desquamation and worsening skin breakdown. Large, multiple stage 2 ulcers in the sacral area, encompassing the entire sacral area.. Assessment and Plan - Assessment and Plan (Free Text) Assessment: This is a 52 yo female originally admitted to the ICU for septic shock 2/2 to PNA/UTI worsened by cardiac arrest and anoxic brain injury. Patient found to have apical thrombus in heart. Patient is s/p trach and PEG. Patient still unable to be weaned off vent. She has had multiple complications, including DVT and infections (PNA, UTI). s/p IVC filter 08/23. s/p multiple chest tube placements Sep 19-Oct 21. s/p LP 09/15. Patient has shown minimal improvement of cognitive function during the course of this hospitalization. Patient does not have any insurance and therefore cannot be placed in rehab/NH. Multiple conversations with regarding poor prognosis- Code status now DNR. Palliative and pastoral care have been on board. Patient on comfort measure at this time. Plan: Altered mental status/Encephalopathy- suspect anoxic encephalopathy -Code Blue 07/10 and 07/20 -Moved to med surg floor 11/08 -Chest tubes x2 in place -Off sedation -Modafinil 50 mg PO daily -CT head (08/28/18): No hemorrhage or midline shift -MRI brain (09/08/18): No definite mass effect or suspicious extra axial collection. No evidence of acute or subacute brain infarction at this time. Borderline pattern of hydrocephalus. -LP 09/15/18: normal opening pressure - LDH 30, glucose 69, tot prot 67 - CSF Cx: no growth - Other CSF studies pending- called lab 11/01, they will contact [facility] for update -Neurology consulted (George/Ankit) Acute respiratory failure- s/p trach on vent, unable to wean - Tracheostomy 07/24/18, s/p bronchoscopy 08/23 - Patient had tolerated trach collars in early Aug 2018; however she has been on vent to trach since. Fi02: 40% - Bronchoscopy (08/23/18) by Dr. Lozada - Bronchial washings: Pseudomonas Aeruginosa - Fungal Cx: negative - Mycobacterial Cx: negative - Chest physiotherapy increased secretions, but pt is being suctioned by RN regularly - Most recent CT chest (10/27/18): Large bilateral pleural effusions and associated consolidations. Trace pericardial effusion. Borderline cardiomegaly. Enlarged heterogeneous partially imaged thyroid gland. - Monitor CO2 - ABG on FiO2 40 (11/02/18): pH 7.34, pCO2 29, pO2 106 - Sodium bicarb 650 mg PEG BID - Pulmonary consulted (Neville) - Pain Mgmt Consulted: Dr Clayton 5mg Ketamine IVP - may consider scopolamine patch for secretions Anemia 2/2 to Chronic Diseases +/- Dysfunctional uterine bleeding, stable -Hg stable -Stool occult blood negative -Iron normal, TIBC low, Iron saturation normal, Ferritin normal -B12, folate normal -Vaginal US: thickened endometrium -Transfused pRBC: 1 unit 07/22/18, 2 units 08/13/18, 1 unit 08/17/18, 1 unit 08/23/18, 2 unit 11/15/18 -OBGYN consulted (Gilberto)- no hysterectomy -During transfusion pt went hypotensive 77/41, PRBC adm rate increased from 120 to 150, 1L NS bolus w/ albumin IVPB on other arm VRE UTI - afebrile - UCx shows VRE sensitive to linezolid - Infectious disease recommends IV abx for total 3 weeks - cefepime IVPB 10/27 for P. aeruginosa Zyvox added 11/17 for VRE in Urine - 12/01 procal is 1.67 Sacral Decubitus Ulcer, stage 2 - Wound care consulted, f/u recs extension to anus: this will require frequent cleaning - recommending repositioning q2hrs - new specialty mattress ordered - medihoney w/ optiforam - continue wound care Upper Extremity swelling bilateral - upper ext dopplers : neg - holding anticoags due to vaginal bleeding - Mid Line dislodged -will be re-evaluated for for midline Distended abdomen -Resolving, pt had BM -AXR (10/28/18): Nonspecific bowel gas pattern with relative paucity of bowel gas. -Repeat AXR (11/02/18): Normal bowel gas pattern. -PEG tube feeds goal rate 30:Pulmocare -Reglan discontinued due to interaction with zyvox Will consider starting reglan in the future as abx have been discontinued (11/29) Pt is on zofran 4 mg IVP Q8h for nausea/vomiting CXR 11/30 shows no lobar pneumonia. Tubes in good position. -Miralax PEG BID -Simethicone 80 mg PEG QID Pleural effusions- s/p bilateral chest tubes - Multiple chest tubes and thoracenteses for effusions, most recent s/p bilateral chest tubes 10/27 - Pleural fluid from 10/13/18 - WBC 794, RBC 2083, tot cells 100, neutrophils 87% - Tot prot<3, LDH 145, glucose 146 - CT chest (10/27/18): Placment of 8.5 [place] pigtail drainage catheter within right and left pleural space - Most recent CXR (10/31/18): Status post bilateral chest tube placements. Marked reduction of bilateral pleural effusions, commensurate re-expansion of both lungs. - Repeat CXR 11/02: Worsening pulmonary edema - IR consulted (Partha) - Pulmonology consulted (Neville) Chest tubes will be removed today, as per Dr. Hernandez. Pt is on comfort care. is aware that this will lead to increase in pulmonary edema. Thyroid disorder - Thyroid US (07/16/18): Heterogeneous thyroid echotexture. Numerous nodules as described above. Suggest percutaneous biopsy of the following suspicious nodules; 1.8 x 0.9 x 1.7 cm right lower pole nodule, 1.0 x 0.7 x 0.9 cm right upper pole lesion with intracystic vascular nodule, complex left upper pole nodule measuring 2.1 x 1.5 x 1.8 cm. - Note: Initial thyroid studies taken before amiodarone was given- this is NOT amiodarone induced - TSH <0.02 in 07/2018, 10/31/18 TSH 18.10 - Free T4 >3 in 07/2018, 10/31/2018 free T4 0.24 - wnl TSH, free T4 on 11/08/18 - Methimazole to 10 mg PO Q8H - Off Propranolol 5 mg PO TID due to hypotension - Endocrinology consulted (Irwin) Hypotension - 11/30 tachycardia at 140s, hypotensive at 80s/50s. Responded well to Albumin 25% 12.5g x 2 and 1 L NS bolus. - 12/04 Tachycardia at 140s, hypotensive. Started on NS at 50mL/hr. - Midodrine 10 mg PEG TID Atrial fibrillation w/ RVR, resolved -EKG (10/29/18): Afib HR 130 -Cardiology consulted (Nolan) Deconditioning -Patient needs aggressive continued PT/OT- PT signed off as patient does not follow directions -Nursing and move patient OOB to chair -Social work note (08/09/18): patient is undocumented, has not health insurance, discharge planning will be at home with Septic Shock 2/2 Pneumonia and Urinary Tract Infection (VRE and Pseudomonas)- urinary retention -Off pressors (previously on 3) -Afebrile since 10/21/18 -Procal 1.49 on 11/01/18, 0.66 on 10/21/18 -CXR (11/02/18): worsening pulmonary edema -Most recent blood cultures negative -Most recent urine cultures (10/21/18) +VRE/Pseudomonas, suspect patient likely colonized -Hernandes in place -Midline removed 11/01/18 -PICC team unable to insert PICC line 11/13/18 -Flomax 0.4 mg PEG daily -Cefepime 1 g Q12H- started 10/27 -ID consulted (Vinod) -neg BCx to date Apical thrombus -Echo (07/07/18) before cardiac arrest: EF 40-45% -Echo (07/10/19) after cardiac arrest: EF 40%, LV large apical hypokinesis, large 30x20 mm soft tissue apical sessile mass suggestive of thrombus -Echo (08/17/19): LV clot, no significant change -Too high risk for HUBERT -Previously on heparin gtt, Eliquis- stopped due to anemia and vaginal bleeding -ASA 81 mg PEG daily LLE Deep vein thrombosis s/p IVC filter -Venous Doppler (07/18/18): Acute thrombosis of the left common femoral and femoral veins with severe reduction of the venous return -Resolved on repeat imaging -Previously on heparin gtt, Eliquis- stopped due to anemia and vaginal bleeding -s/p IVC filter on 08/23/18 -Vasc surgery consulted (Vicky) Generalized skin excoriation - seen in arms and abdominal area and LE - most likely due to generalized edema/anasarca - skin protectant, cover with optifoam as needed T2DM -A1c: 7.8 -Hypoglycemia protocol - Accuchecks changed to BID Vtach- Code blue x2 (07/10/18) - Previously on amiodarone ggt - Cardiology consulted (Nolan) NEHA, resolved - Required dialysis early in admission before code blues Shock liver, resolved -Hepatitis panel negative -HIV negative PPx, Diet, Disposition -DVT ppx: scds -GI ppx: protonix 40 via PEG q12 -Tube feeds -Pulmocare at 30 mL per hour due to hx of regurgitation -Lactobacillus 1 cap PEG Q12H -Multivitamin PEG daily -Vitamin C 1,000 PEG daily -Vitamin A&E Dispo: Comfort care, and no blood draws or invasive treatment. Comfort care measures. Abx discontinued. Pending 's decision on morphine drip, likely will be made tomorrow. Evaluation for midline IV access today. Wound care aleksandra nsulted due to worsening ulcers. DNR with POLST form for comfort care in place. <Saira Leahy V - Last Filed: 12/11/18 21:44> Objective - Vital Signs/Intake and Output Vital Signs (last 24 hours): Temp Pulse Resp BP Pulse Ox 97.1 F L 101 H 20 105/68 100 12/11/18 16:00 12/11/18 16:00 12/11/18 16:00 12/11/18 16:00 12/11/18 16:00 - Medications Medications: Current Medications Albuterol/Ipratropium (Duoneb 3 Mg/0.5 Mg (3 Ml) Ud) 3 ml INH RQ6 [facility] Last Admin: 12/11/18 19:45 Dose: 3 ml Aspirin (Aspirin Chewable) 81 mg GT DAILY [facility] Last Admin: 12/11/18 10:09 Dose: 81 mg Dextrose (Dextrose 50% Inj) 0 ml IVP .STAT PRN; Protocol PRN Reason: Hypoglycemia Protocol Dextrose (Glutose 15) 0 gm PO .ONCE PRN; Protocol PRN Reason: Hypoglycemia Protocol Emollient Ointment (Vaseline Oint) 5 gm TOP DAILY [facility] Last Admin: 12/11/18 10:09 Dose: 5 gm Emollient Ointment (Vaseline Oint) 1 gm TOP BID [facility] Last Admin: 12/11/18 17:53 Dose: 1 gm Glucagon (Glucagen Diagnostic Kit) 0 mg IM .STAT PRN; Protocol PRN Reason: Hypoglycemia Protocol Methimazole (Tapazole) 10 mg PO Q8 [facility] Last Admin: 12/11/18 13:10 Dose: 10 mg Midodrine (Proamatine) 10 mg PO TID [facility] Last Admin: 12/11/18 17:52 Dose: 10 mg Ondansetron HCl (Zofran Inj) 4 mg IVP DAILY@ONCE PRN PRN Reason: Nausea/Vomiting Last Admin: 11/29/18 17:05 Dose: 4 mg Pantoprazole Sodium (Protonix Susp) 40 mg GT Q12H [facility] Last Admin: 12/11/18 10:09 Dose: 40 mg Simethicone (Mylicon Chew Tab) 80 mg PO QID [facility] Last Admin: 12/11/18 17:52 Dose: 80 mg Sodium Bicarbonate (Sodium Bicarbonate Tab) 650 mg PO BID [facility] Last Admin: 12/11/18 17:52 Dose: 650 mg - Labs Labs: 11/28/18 11:26 11/28/18 11:26 PT 13.3 SECONDS (9.7-12.2) H 10/23/18 06:05 INR 1.2 10/23/18 06:05 APTT 23 SECONDS (21-34) 10/02/18 06:10 Assessment and Plan (1) Septic shock Status: Acute (2) Acute respiratory failure Status: Acute (3) Urinary tract infection Status: Acute (4) Acute renal failure Status: Acute (5) Aspiration pneumonia Status: Acute (6) Diabetes mellitus Status: Chronic (7) Ventricular arrhythmia Status: Acute (8) Hyperthyroidism Status: Acute (9) Anemia Status: Acute (10) Prophylactic measure Status: Acute Attending/Attestation - Attestation I have personally seen and examined this patient.: Yes I have fully participated in the care of the patient.: Yes I have reviewed all pertinent clinical information, including history, physical exam and plan: Yes Notes (Text): Patient seen, examined and case discussed with day-time resident. Patient seen at bedside. Patient's skin is sloughing off from head to toe; patient's initial gluteal tear has likely spread to over the sacrum. Patient is in pain. Rectal tube in place. I had a [place] discussion with the ; who has spoken with my partner quite a bit over the past few days in regards to his is likely suffering from the sacral decub. She is visibly in pain. He is in great turmoil over the decision. He reports he is [employer]; his is a [employer]; he reports that he was told by his her wishes in regards to if she was to in terms of her joseph. He is trying to honor his 's wishes and relying a [facility] here, though his home is in [place]. I did express to him that because his 's nutrition status is limited to peg feedings, she likely will not be able to figh t of infection from the sacrum; she has been on Iv abx since her entire hospitalization, but she is third spacing in her legs, arms, and belly. I did express to him, the area where we sit on, is causing her pain and she does not have the ability to turn herself to try to offload it. I also did express to him if we do start Morphine drip though it will treat her pain; she will likely shortly after it is started since her blood pressure is quite low. He reports he needs a day to speak with his community in preparation for her . I have spoken with Paper Tester Sue, to see if there is any way we can honor patient's mandaen right, and Judy the patient field service representative, to see if there is any way we can offload the financial stress to help patient's who is concerned about costs. I have endorsed this patient to Dr. Garcia is covering me for the next couple of days; given that the will need make decision regarding morphine drip. PICC line consult was placed; and patient did receive replacement midline line today since the prior line was out. please note: patient's has been presently daily regarding his 's hospitalization; i do believe he is trying his best to honor his 's wishes in a country that is not [place] nor his 's home where he does not work in with limited support available.
[2018-12-11] MEDS: Pantoprazole 40 mg Susp UD GT SCH ×2 (10:09→22:00)
[2018-12-11] MEDS: Simethicone 80 mg Chewtab PO SCH ×4 (10:09→22:02)
[2018-12-11] MEDS: Petrolatum Oint Foilpak (5 gm) TOP SCH ×2 (10:09→17:53)
[2018-12-11] MEDS: Albuterol-Ipratrop 3 mg / 0.5 (3 ml) UD INH SCH ×2 (13:41→19:45)
[2018-12-11 17:38] VITALS: O2SAT 100
[2018-12-12] MEDS: Albuterol-Ipratrop 3 mg / 0.5 (3 ml) UD INH SCH ×3 (04:25→19:48)
--- NOTE | 2018-12-12 07:38 | CP.PCM.PN ---
<Evaristo Barber - Last Filed: 12/12/18 17:43> Subjective - Date & Time of Evaluation Date of Evaluation: 12/12/18 Time of Evaluation: 10:00 - Subjective Subjective: Medicine progress note for Dr. Garcia Patient is seen and examined at bedside. Pt is resting comfortably and in no acute distress. Left midline placed yesterday by PICC line RN. Patient observed to be in no acute distress. ROS unttainable due to patient's status. Objective - Vital Signs/Intake and Output Vital Signs (last 24 hours): Temp Pulse Resp BP Pulse Ox 97.2 F L 110 H 17 101/70 100 12/12/18 00:00 12/12/18 00:00 12/12/18 00:00 12/12/18 00:00 12/12/18 00:00 Intake and Output: 12/12/18 12/12/18 06:59 18:59 Intake Total 380 Output Total 300 Balance 80 - Medications Medications: Current Medications Albuterol/Ipratropium (Duoneb 3 Mg/0.5 Mg (3 Ml) Ud) 3 ml INH RQ6 [facility] Last Admin: 12/12/18 04:25 Dose: 3 ml Aspirin (Aspirin Chewable) 81 mg GT DAILY [facility] Last Admin: 12/11/18 10:09 Dose: 81 mg Dextrose (Dextrose 50% Inj) 0 ml IVP .STAT PRN; Protocol PRN Reason: Hypoglycemia Protocol Dextrose (Glutose 15) 0 gm PO .ONCE PRN; Protocol PRN Reason: Hypoglycemia Protocol Emollient Ointment (Vaseline Oint) 5 gm TOP DAILY [facility] Last Admin: 12/11/18 10:09 Dose: 5 gm Emollient Ointment (Vaseline Oint) 1 gm TOP BID [facility] Last Admin: 12/11/18 17:53 Dose: 1 gm Glucagon (Glucagen Diagnostic Kit) 0 mg IM .STAT PRN; Protocol PRN Reason: Hypoglycemia Protocol Methimazole (Tapazole) 10 mg PO Q8 [facility] Last Admin: 12/12/18 06:01 Dose: 10 mg Midodrine (Proamatine) 10 mg PO TID [facility] Last Admin: 12/11/18 17:52 Dose: 10 mg Ondansetron HCl (Zofran Inj) 4 mg IVP DAILY@ONCE PRN PRN Reason: Nausea/Vomiting Last Admin: 02/27/19 17:05 Dose: 4 mg Pantoprazole Sodium (Protonix Susp) 40 mg GT Q12H [facility] Last Admin: 12/11/18 22:00 Dose: 40 mg Simethicone (Mylicon Chew Tab) 80 mg PO QID [facility] Last Admin: 12/11/18 22:02 Dose: 80 mg Sodium Bicarbonate (Sodium Bicarbonate Tab) 650 mg PO BID [facility] Last Admin: 12/11/18 17:52 Dose: 650 mg - Labs Labs: 11/28/18 11:26 11/28/18 11:26 PT 13.3 SECONDS (9.7-12.2) H 10/23/18 06:05 INR 1.2 10/23/18 06:05 APTT 23 SECONDS (21-34) 10/02/18 06:10 - Additional Findings Additional findings: - Constitutional Appears: No Acute Distress, Chronically Ill - Head Exam Head Exam: ATRAUMATIC, NORMAL INSPECTION, NORMOCEPHALIC - Eye Exam Eye Exam: PERRL - ENT Exam ENT Exam: Mucous Membranes Dry, Normal Exam - Respiratory Exam Respiratory Exam: Rhonchi. absent: NORMAL BREATHING PATTERN Additional comments: trach with vent in place, C/D/I. - Cardiovascular Exam Cardiovascular Exam: Tachycardia, REGULAR RHYTHM, +S1, +S2 - GI/Abdominal Exam GI & Abdominal Exam: Soft Additional comments: PEG in place with dressing c/d/i - Extremities Exam Anasarca Additional comments: b/l pressure boots swelling noted upper extremities - Neurological Exam Neurological Exam: Awake - Skin Skin Exam: Dry, with desquamation and worsening skin breakdown.Left midline c/d/i no active bleeding Left hip: unstagable pressure ulcer with yellow base Scaral region unstagable pressure injury Assessment and Plan - Assessment and Plan (Free Text) Assessment: This is a 52 yo female originally admitted to the ICU for septic shock 2/2 to PNA/UTI worsened by cardiac arrest and anoxic brain injury. Patient found to have apical thrombus in heart. Patient is s/p trach and PEG. Patient still unable to be weaned off vent. She has had multiple complications, including DVT and infections (PNA, UTI). s/p IVC filter 08/23. s/p multiple chest tube placements Sep 19-Oct 21. s/p LP 09/15. Patient has shown minimal improvement of cognitive function during the course of this hospitalization. Patient does not have any insurance and therefore cannot be placed in rehab/NH. Multiple conversations with regarding poor prognosis- Code status now DNR. Palliative and pastoral care have been on board. Patient on comfort measure at this time. Plan: Altered mental status/Encephalopathy- suspect anoxic encephalopathy -Code Blue 07/10 and 07/20 -Moved to [facility] floor 11/08 -Chest tubes x2 in place -Off sedation -Modafinil 50 mg PO daily -CT head (08/28/18): No hemorrhage or midline shift -MRI brain (09/08/18): No definite mass effect or suspicious extra axial collection. No evidence of acute or subacute brain infarction at this time. Borderline pattern of hydrocephalus. -LP 09/15/18: normal opening pressure - LDH 30, glucose 69, tot prot 67 - CSF Cx: no growth - Other CSF studies pending- called lab 11/01, they will contact [facility] for update -Neurology consulted (George/Ankit) Acute respiratory failure- s/p trach on vent, unable to wean - Tracheostomy 07/24/18, s/p bronchoscopy 08/23 - Patient had tolerated trach collars in early Aug 2018; however she has been on vent to trach since. Fi02: 40% - Bronchoscopy (08/23/18) by Dr. Lozada - Bronchial washings: Pseudomonas Aeruginosa - Fungal Cx: negative - Mycobacterial Cx: negative - Chest physiotherapy increased secretions, but pt is being suctioned by RN regularly - Most recent CT chest (10/27/18): Large bilateral pleural effusions and associated consolidations. Trace pericardial effusion. Borderline cardiomegaly. Enlarged heterogeneous partially imaged thyroid gland. - Monitor CO2 - ABG on FiO2 40 (11/02/18): pH 7.34, pCO2 29, pO2 106 - Sodium bicarb 650 mg PEG BID - Pulmonary consulted (Neville) - Pain Mgmt Consulted: Dr Clayton 5mg Ketamine IVP - may consider scopolamine patch for secretions Anemia 2/2 to Chronic Diseases +/- Dysfunctional uterine bleeding, stable -Hg stable -Stool occult blood negative -Iron normal, TIBC low, Iron saturation normal, Ferritin normal -B12, folate normal -Vaginal US: thickened endometrium -Transfused pRBC: 1 unit 07/22/18, 2 units 08/13/18, 1 unit 11/15/18, 1 unit 08/23/18, 2 unit 11/15/18 -OBGYN consulted (Gilberto)- no hysterectomy -During transfusion pt went hypotensive 77/41, PRBC adm rate increased from 120 to 150, 1L NS bolus w/ albumin IVPB on other arm VRE UTI - afebrile - UCx shows VRE sensitive to linezolid - Infectious disease recommends IV abx for total 3 weeks - cefepime IVPB 10/27 for P. aeruginosa Zyvox added 11/17 for VRE in Urine - 12/01 procal is 1.67 Sacral Decubitus Ulcer, stage 2 - Wound care consulted, f/u recs extension to anus: this will require frequent cleaning - recommending repositioning q2hrs - new specialty mattress ordered - [facility] w/ optiforam - continue wound care Upper Extremity swelling bilateral - upper ext dopplers : neg - holding anticoags due to vaginal bleeding - Mid Line dislodged -will be re-evaluated for for midline Distended abdomen -Resolving, pt had BM -AXR (10/28/18): Nonspecific bowel gas pattern with relative paucity of bowel gas. -Repeat AXR (11/02/18): Normal bowel gas pattern. -PEG tube feeds goal rate 30:Pulmocare -Reglan discontinued due to interaction with zyvox Will consider starting reglan in the future as abx have been discontinued (11/29) Pt is on zofran 4 mg IVP Q8h for nausea/vomiting CXR 11/30 shows no lobar pneumonia. Tubes in good position. -Miralax PEG BID -Simethicone 80 mg PEG QID Pleural effusions- s/p bilateral chest tubes - Multiple chest tubes and thoracenteses for effusions, most recent s/p bilateral chest tubes 10/27 - Pleural fluid from 10/13/18 - WBC 794, RBC 2083, tot cells 100, neutrophils 87% - Tot prot<3, LDH 145, glucose 146 - CT chest (10/27/18): Placment of 8.5 Bengali pigtail drainage catheter within right and left pleural space - Most recent CXR (10/31/18): Status post bilateral chest tube placements. Marked reduction of bilateral pleural effusions, commensurate re-expansion of both lungs. - Repeat CXR 11/02: Worsening pulmonary edema - IR consulted (Partha) - Pulmonology consulted (Neville) Chest tubes will be removed today, as per Dr. Hernandez. Pt is on comfort care. is aware that this will lead to increase in pulmonary edema. Thyroid disorder - Thyroid US (07/16/18): Heterogeneous thyroid echotexture. Numerous nodules as described above. Suggest percutaneous biopsy of the following suspicious nodules; 1.8 x 0.9 x 1.7 cm right lower pole nodule, 1.0 x 0.7 x 0.9 cm right upper pole lesion with intracystic vascular nodule, complex left upper pole nod ule measuring 2.1 x 1.5 x 1.8 cm. - Note: Initial thyroid studies taken before amiodarone was given- this is NOT amiodarone induced - TSH <0.02 in 07/2018, 10/31/18 TSH 18.10 - Free T4 >3 in 07/2018, 10/31/2018 free T4 0.24 - wnl TSH, free T4 on 11/08/18 - Methimazole to 10 mg PO Q8H - Off Propranolol 5 mg PO TID due to hypotension - Endocrinology consulted (Irwin) Hypotension - 11/30 tachycardia at 140s, hypotensive at 80s/50s. Responded well to Albumin 25% 12.5g x 2 and 1 L NS bolus. - / Tachycardia at 140s, hypotensive. Started on NS at 50mL/hr. - Midodrine 10 mg PEG TID Atrial fibrillation w/ RVR, resolved -EKG (10/29/18): Afib HR 130 -Cardiology consulted (Nolan) Deconditioning -Patient needs aggressive continued PT/OT- PT signed off as patient does not follow directions -Nursing and move patient OOB to chair -Social work note (08/09/18): patient is undocumented, has not health insurance, discharge planning will be at home with Septic Shock 2/2 Pneumonia and Urinary Tract Infection (VRE and Pseudomonas)- urinary retention -Off pressors (previously on 3) -Afebrile since 10/21/18 -Procal 1.49 on 11/01/18, 0.66 on 10/21/18 -CXR (11/02/18): worsening pulmonary edema -Most recent blood cultures negative -Most recent urine cultures (10/21/18) +VRE/Pseudomonas, suspect patient likely colonized -Hernandes in place -Midline removed 11/01/18 -PICC team unable to insert PICC line 11/13/18 -Flomax 0.4 mg PEG daily -Cefepime 1 g Q12H- started 10/27 -ID consulted (Vinod) -neg BCx to date Apical thrombus -Echo (07/07/18) before cardiac arrest: EF 40-45% -Echo (07/10/19) after cardiac arrest: EF 40%, LV large apical hypokinesis, large 30x20 mm soft tissue apical sessile mass suggestive of thrombus -Echo (08/17/19): LV clot, no significant change -Too high risk for HUBERT -Previously on heparin gtt, Eliquis- stopped due to anemia and vaginal bleeding -ASA 81 mg PEG daily LLE Deep vein thrombosis s/p IVC filter -Venous Doppler (07/18/18): Acute thrombosis of the left common femoral and femoral veins with severe reduction of the venous return -Resolved on repeat imaging -Previously on heparin gtt, Eliquis- stopped due to anemia and vaginal bleeding -s/p IVC filter on 08/23/18 -Vasc surgery consulted (Vicky) Generalized skin excoriation - seen in arms and abdominal area and LE - most likely due to generalized edema/anasarca - skin protectant, cover with optifoam as needed T2DM -A1c: 7.8 -Hypoglycemia protocol - Accuchecks changed to BID Vtach- Code blue x2 (07/10/18) - Previously on amiodarone ggt - Cardiology consulted (Nolan) NEHA, resolved - Required dialysis early in admission before code blues Shock liver, resolved -Hepatitis panel negative -HIV negative PPx, Diet, Disposition -DVT ppx: scds -GI ppx: protonix 40 via PEG q12 -Tube feeds -Pulmocare at 30 mL per hour due to hx of regurgitation -Lactobacillus 1 cap PEG Q12H -Multivitamin PEG daily -Vitamin C 1,000 PEG daily -Vitamin A&E Dispo: Comfort care, and no blood draws or invasive treatment. Comfort care measures. Abx discontinued. Pending 's decision on morphine drip. Air mattress to prevent skin breakdown pending. DNR with POLST form for comfort care in place. <Pravin Garcia - Last Filed: 12/12/18 19:26> Objective - Vital Signs/Intake and Output Vital Signs (last 24 hours): Temp Pulse Resp BP Pulse Ox 97.2 F L 110 H 17 101/70 100 12/12/18 00:00 12/12/18 00:00 12/12/18 00:00 12/12/18 00:00 12/12/18 00:00 Intake and Output: 12/12/18 12/13/18 18:59 06:59 Intake Total 80 Balance 80 - Medications Medications: Current Medications Albuterol/Ipratropium (Duoneb 3 Mg/0.5 Mg (3 Ml) Ud) 3 ml INH RQ6 [facility] Last Admin: 12/12/18 07:30 Dose: 3 ml Aspirin (Aspirin Chewable) 81 mg GT DAILY [facility] Last Admin: 12/12/18 11:05 Dose: 81 mg Dextrose (Dextrose 50% Inj) 0 ml IVP .STAT PRN; Protocol PRN Reason: Hypoglycemia Protocol Dextrose (Glutose 15) 0 gm PO .ONCE PRN; Protocol PRN Reason: Hypoglycemia Protocol Emollient Ointment (Vaseline Oint) 5 gm TOP DAILY [facility] Last Admin: 12/12/18 11:07 Dose: 5 gm Emollient Ointment (Vaseline Oint) 1 gm TOP BID [facility] Last Admin: 12/12/18 18:33 Dose: 1 gm Glucagon (Glucagen Diagnostic Kit) 0 mg IM .STAT PRN; Protocol PRN Reason: Hypoglycemia Protocol Methimazole (Tapazole) 10 mg PO Q8 [facility] Last Admin: 12/12/18 13:49 Dose: 10 mg Midodrine (Proamatine) 10 mg PO TID [facility] Last Admin: 12/12/18 18:33 Dose: 10 mg Ondansetron HCl (Zofran Inj) 4 mg IVP DAILY@ONCE PRN PRN Reason: Nausea/Vomiting Last Admin: 11/29/18 17:05 Dose: 4 mg Pantoprazole Sodium (Protonix Susp) 40 mg GT Q12H [facility] Last Admin: 12/12/18 11:04 Dose: 40 mg Simethicone (Mylicon Chew Tab) 80 mg PO QID [facility] Last Admin: 12/12/18 18:33 Dose: 80 mg Sodium Bicarbonate (Sodium Bicarbonate Tab) 650 mg PO BID [facility] Last Admin: 12/12/18 18:33 Dose: 650 mg - Labs Labs: 11/28/18 11:26 11/28/18 11:26 PT 13.3 SECONDS (9.7-12.2) H 10/23/18 06:05 INR 1.2 10/23/18 06:05 APTT 23 SECONDS (21-34) 10/02/18 06:10 Attending/Attestation - Attestation I have personally seen and examined this patient.: Yes I have fully participated in the care of the patient.: Yes I have reviewed all pertinent clinical information, including history, physical exam and plan: Yes Notes (Text): Anoxic brain injury vent dependent Sacral decub hypotension DNR/DNI Spoke with at bedside. Patient not in pain at the moment may use prn morphine if needed.
[2018-12-12] MEDS: Pantoprazole 40 mg Susp UD GT SCH ×2 (11:04→22:15)
[2018-12-12] MEDS: Petrolatum Oint Foilpak (5 gm) TOP SCH ×3 (11:07→18:33)
[2018-12-12] MEDS: Simethicone 80 mg Chewtab PO SCH ×4 (11:11→22:23)
[2018-12-12 16:14] LABS: TBII SEE SEPARATE REPORT
[2018-12-13] MEDS: Albuterol-Ipratrop 3 mg / 0.5 (3 ml) UD INH SCH ×4 (03:14→19:43)
[2018-12-13 07:42] VITALS: RESP 20
--- NOTE | 2018-12-13 07:49 | CP.PCM.PN ---
<Evaristo Barber - Last Filed: 12/13/18 19:24> Subjective - Date & Time of Evaluation Date of Evaluation: 12/13/18 Time of Evaluation: 09:30 - Subjective Subjective: Medicine progress note for Dr. Garcia Patient is seen and examined at bedside. Pt is resting comfortably at this time. No acute distress. Patient observed to be in no acute distress. ROS unttainable due to patient's status. is at bedside and requests medication for pain as needed. Objective - Vital Signs/Intake and Output Vital Signs (last 24 hours): Temp Pulse Resp BP Pulse Ox 97.4 F L 88 20 111/67 100 12/13/18 07:41 12/13/18 07:41 12/13/18 07:41 12/13/18 07:41 12/13/18 00:00 Intake and Output: 12/13/18 12/13/18 06:59 18:59 Intake Total 380 Output Total 300 Balance 80 - Medications Medications: Current Medications Albuterol/Ipratropium (Duoneb 3 Mg/0.5 Mg (3 Ml) Ud) 3 ml INH RQ6 [facility] Last Admin: 12/13/18 07:48 Dose: 3 ml Aspirin (Aspirin Chewable) 81 mg GT DAILY [facility] Last Admin: 12/12/18 11:05 Dose: 81 mg Dextrose (Dextrose 50% Inj) 0 ml IVP .STAT PRN; Protocol PRN Reason: Hypoglycemia Protocol Dextrose (Glutose 15) 0 gm PO .ONCE PRN; Protocol PRN Reason: Hypoglycemia Protocol Emollient Ointment (Vaseline Oint) 5 gm TOP DAILY [facility] Last Admin: 12/12/18 11:07 Dose: 5 gm Emollient Ointment (Vaseline Oint) 1 gm TOP BID [facility] Last Admin: 12/12/18 18:33 Dose: 1 gm Glucagon (Glucagen Diagnostic Kit) 0 mg IM .STAT PRN; Protocol PRN Reason: Hypoglycemia Protocol Methimazole (Tapazole) 10 mg PO Q8 [facility] Last Admin: 12/13/18 06:06 Dose: 10 mg Midodrine (Proamatine) 10 mg PO TID [facility] Last Admin: 12/12/18 18:33 Dose: 10 mg Ondansetron HCl (Zofran Inj) 4 mg IVP DAILY@ONCE PRN PRN Reason: Nausea/Vomiting Last Admin: 11/29/18 17:05 Dose: 4 mg Pantoprazole Sodium (Protonix Susp) 40 mg GT Q12H [facility] Last Admin: 12/12/18 22:15 Dose: 40 mg Simethicone (Mylicon Chew Tab) 80 mg PO QID [facility] Last Admin: 12/12/18 22:23 Dose: 80 mg Sodium Bicarbonate (Sodium Bicarbonate Tab) 650 mg PO BID [facility] Last Admin: 12/12/18 18:33 Dose: 650 mg - Labs Labs: 11/28/18 11:26 11/28/18 11:26 PT 13.3 SECONDS (9.7-12.2) H 10/23/18 06:05 INR 1.2 10/23/18 06:05 APTT 23 SECONDS (21-34) 10/02/18 06:10 - Additional Findings Additional findings: - Constitutional Appears: No Acute Distress, Chronically Ill - Head Exam Head Exam: ATRAUMATIC, NORMAL INSPECTION, NORMOCEPHALIC - Eye Exam Eye Exam: PERRL - ENT Exam ENT Exam: Mucous Membranes Dry, Normal Exam - Respiratory Exam Respiratory Exam: Rhonchi. absent: NORMAL BREATHING PATTERN Additional comments: trach with vent in place, C/D/I. - Cardiovascular Exam Cardiovascular Exam: Tachycardia, REGULAR RHYTHM, +S1, +S2 - GI/Abdominal Exam GI & Abdominal Exam: Soft Additional comments: PEG in place with dressing c/d/i - Extremities Exam Anasarca Additional comments: b/l pressure boots swelling noted upper extremities - Neurological Exam Neurological Exam: Awake - Skin Skin Exam: Dry, with desquamation and worsening skin breakdown.Left midline c/d/i no active bleeding Left hip: unstageable pressure ulcer with yellow base Scaral region unstagable pressure injury Assessment and Plan - Assessment and Plan (Free Text) Assessment: This is a 52 yo female originally admitted to the ICU for septic shock 2/2 to PNA/UTI worsened by cardiac arrest and anoxic brain injury. Patient found to h ave apical thrombus in heart. Patient is s/p trach and PEG. Patient still unable to be weaned off vent. She has had multiple complications, including DVT and infections (PNA, UTI). s/p IVC filter 08/23. s/p multiple chest tube placements Sep 19-Oct 21. s/p LP 09/15. Patient has shown minimal improvement of cognitive function during the course of this hospitalization. Patient does not have any insurance and therefore cannot be placed in rehab/NH. Multiple conversations with regarding poor prognosis- Code status now DNR. Palliative and pastoral care have been on board. Patient on comfort measure at this time. Plan: Altered mental status/Encephalopathy- suspect anoxic encephalopathy -Code Blue 07/10 and 07/20 -[facility] 11/08 -Chest tubes x2 in place -Off sedation -Modafinil 50 mg PO daily -CT head (08/28/18): No hemorrhage or midline shift -MRI brain (09/08/18): No definite mass effect or suspicious extra axial douglas ection. No evidence of acute or subacute brain infarction at this time. Borderline pattern of hydrocephalus. -LP 09/15/18: normal opening pressure - LDH 30, glucose 69, tot prot 67 - CSF Cx: no growth - Other CSF studies pending- called lab 11/01, they will contact [facility] for update -Neurology consulted (George/Ankit) Acute respiratory failure- s/p trach on vent, unable to wean - Tracheostomy 07/24/18, s/p bronchoscopy 08/23 - Patient had tolerated trach collars in early Aug 2018; however she has been on vent to trach since. Fi02: 40% - Bronchoscopy (08/23/18) by Dr. Lozada - Bronchial washings: Pseudomonas Aeruginosa - Fungal Cx: negative - Mycobacterial Cx: negative - Chest physiotherapy increased secretions, but pt is being suctioned by RN regularly - Most recent CT chest (10/27/18): Large bilateral pleural effusions and associated consolidations. Trace pericardial effusion. Borderline cardiomegaly. Enlarged heterogeneous partially imaged thyroid gland. - Monitor CO2 - ABG on FiO2 40 (11/02/18): pH 7.34, pCO2 29, pO2 106 - Sodium bicarb 650 mg PEG BID - Pulmonary consulted (Neville) - Pain Mgmt Consulted: Dr Clayton 5mg Ketamine IVP given one time dose - may consider scopolamine patch for secretions Anemia 2/2 to Chronic Diseases +/- Dysfunctional uterine bleeding, stable -Hg stable -Stool occult blood negative -Iron normal, TIBC low, Iron saturation normal, Ferritin normal -B12, folate normal -Vaginal US: thickened endometrium -Transfused pRBC: 1 unit 07/22/18, 2 units 08/13/18, 1 unit 08/17/18, 1 unit 08/23/18, 2 unit 11/15/18 -OBGYN consulted (Gilberto)- no hysterectomy -During transfusion pt went hypotensive 77/41, PRBC adm rate increased from 120 to 150, 1L NS bolus w/ albumin IVPB on other arm VRE UTI - afebrile - UCx shows VRE sensitive to linezolid - Infectious disease recommends IV abx for total 3 weeks - cefepime IVPB 10/27 for P. aeruginosa Zyvox added 11/17 for VRE in Urine - 12/01 procal is 1.67 Sacral Decubitus Ulcer, stage 2 - Wound care consulted, f/u recs extension to anus: this will require frequent cleaning - recommending repositioning q2hrs - [facility] - continue wound care Upper Extremity swelling bilateral - upper ext dopplers : neg - holding anticoags due to vaginal bleeding - Mid Line dislodged -will be re-evaluated for for midline Distended abdomen -Resolving, pt had BM -AXR (10/28/18): Nonspecific bowel gas pattern with relative paucity of bowel gas. -Repeat AXR (11/02/18): Normal bowel gas pattern. -PEG tube feeds goal rate 30:Pulmocare -Reglan discontinued due to interaction with zyvox Will consider starting reglan in the future as abx have been discontinued (11/29) Pt is on zofran 4 mg IVP Q8h for nausea/vomiting CXR 11/30 shows no lobar pneumonia. Tubes in good position. -Miralax PEG BID -Simethicone 80 mg PEG QID Pleural effusions- s/p bilateral chest tubes - Multiple chest tubes and thoracenteses for effusions, most recent s/p bilateral chest tubes 10/27 - Pleural fluid from 10/13/18 - WBC 794, RBC 2083, tot cells 100, neutrophils 87% - Tot prot<3, LDH 145, glucose 146 - CT chest (10/27/18): Placment of 8.5 Divehi pigtail drainage catheter within right and left pleural space - Most recent CXR (10/31/18): Status post bilateral chest tube placements. Marked reduction of bilateral pleural effusions, commensurate re-expansion of both lungs. - Repeat CXR 11/02: Worsening pulmonary edema - IR consulted (Partha) - Pulmonology consulted (Neville) Chest tubes will be removed today, as per Dr. Hernandez. Pt is on comfort care. is aware that this will lead to increase in pulmonary edema. Thyroid disorder - Thyroid US (07/16/18): Heterogeneous thyroid echotexture. Numerous nodules as described above. Suggest percutaneous biopsy of the following suspicious nodules; 1.8 x 0.9 x 1.7 cm right lower pole nodule, 1.0 x 0.7 x 0.9 cm right upper pole lesion with intracystic vascular nodule, complex left upper pole nodule measuring 2.1 x 1.5 x 1.8 cm. - Note: Initial thyroid studies taken before amiodarone was given- this is NOT amiodarone induced - TSH <0.02 in 07/2018, 10/31/18 TSH 18.10 - Free T4 >3 in 07/2018, 10/31/2018 free T4 0.24 - wnl TSH, free T4 on 11/08/18 - Methimazole to 10 mg PO Q8H - Off Propranolol 5 mg PO TID due to hypotension - Endocrinology consulted (Irwin) Hypotension - 11/30 tachycardia at 140s, hypotensive at 80s/50s. Responded well to Albumin 25% 12.5g x 2 and 1 L NS bolus. - 12/04 Tachycardia at 140s, hypotensive. Started on NS at 50mL/hr. - Midodrine 10 mg PEG TID Atrial fibrillation w/ RVR, resolved -EKG (10/29/18): Afib HR 130 -Cardiology consulted (Nolan) Deconditioning -Patient needs aggressive continued PT/OT- PT signed off as patient does not follow directions -Nursing and move patient OOB to chair -Social work note (08/09/18): patient is undocumented, has not health insurance, discharge planning will be at home with Septic Shock 2/2 Pneumonia and Urinary Tract Infection (VRE and Pseudomonas)- urinary retention -Off pressors (previously on 3) -Afebrile since 10/21/18 -Procal 1.49 on 11/01/18, 0.66 on 10/21/18 -CXR (11/02/18): worsening pulmonary edema -Most recent blood cultures negative -Most recent urine cultures (10/21/18) +VRE/Pseudomonas, suspect patient likely colonized -Hernandes in place -Midline removed 11/01/18 -PICC team unable to insert PICC line 11/13/18 -Flomax 0.4 mg PEG daily -Cefepime 1 g Q12H- started 10/27 -ID consulted (Vinod) -neg BCx to date Apical thrombus -Echo (07/07/18) before cardiac arrest: EF 40-45% -Echo (07/10/19) after cardiac arrest: EF 40%, LV large apical hypokinesis, large 30x20 mm soft tissue apical sessile mass suggestive of thrombus -Echo (08/17/19): LV clot, no significant change -Too high risk for HUBERT -Previously on heparin gtt, Eliquis- stopped due to anemia and vaginal bleeding -ASA 81 mg PEG daily LLE Deep vein thrombosis s/p IVC filter -Venous Doppler (07/18/18): Acute thrombosis of the left common femoral and femoral veins with severe reduction of the venous return -Resolved on repeat imaging -Previously on heparin gtt, Eliquis- stopped due to anemia and vaginal bleeding -s/p IVC filter on 08/23/18 -Vasc surgery consulted (Vicky) Generalized skin excoriation - seen in arms and abdominal area and LE - most likely due to generalized edema/anasarca - skin protectant, cover with optifoam as needed T2DM -A1c: 7.8 -Hypoglycemia protocol - Accuchecks changed to BID Vtach- Code blue x2 (07/10/18) - Previously on amiodarone ggt - Cardiology consulted (Nolan) NEHA, resolved - Required dialysis early in admission before code blues Shock liver, resolved -Hepatitis panel negative -HIV negative PPx, Diet, Disposition -DVT ppx: scds -GI ppx: protonix 40 via PEG q12 -Tube feeds -Pulmocare at 30 mL per hour due to hx of regurgitation -Lactobacillus 1 cap PEG Q12H -Multivitamin PEG daily -Vitamin C 1,000 PEG daily -Vitamin A&E Dispo: Comfort care, and no blood draws or invasive treatment. Comfort care measures. Air mattress to prevent skin breakdown pending. Pt will have Morphine 0.5 mg IVP q4h prn pain and restlessness going forward, without holding parameters for hypotension. DNR with POLST form for comfort care in place. <Pravin Garcia - Last Filed: 12/14/18 17:40> Objective - Vital Signs/Intake and Output Vital Signs (last 24 hours): Temp Pulse Resp BP Pulse Ox 98.0 F 86 20 114/76 100 12/14/18 00:00 12/14/18 00:00 12/14/18 00:00 12/14/18 00:00 12/14/18 00:00 Intake and Output: 12/14/18 12/14/18 06:59 18:59 Intake Total 760 Output Total 100 Balance 660 - Labs Labs: 11/28/18 11:26 11/28/18 11:26 PT 13.3 SECONDS (9.7-12.2) H 10/23/18 06:05 INR 1.2 10/23/18 06:05 APTT 23 SECONDS (21-34) 10/02/18 06:10 Attending/Attestation - Attestation I have personally seen and examined this patient.: Yes I have fully participated in the care of the patient.: Yes I have reviewed all pertinent clinical information, including history, physical exam and plan: Yes Notes (Text): anoxic encephalopathy poor prognosis
[2018-12-13] MEDS: Simethicone 80 mg Chewtab PO SCH ×4 (09:17→22:20)
[2018-12-13] MEDS: Petrolatum Oint Foilpak (5 gm) TOP SCH ×2 (11:14→11:20)
[2018-12-13] MEDS: Pantoprazole 40 mg Susp UD GT SCH ×2 (11:16→21:30)
[2018-12-13] MEDS ORDERED: Petrolatum Oint Foilpak (5 gm) TOP SCH (18:00)
[2018-12-14 01:14] VITALS: BP 114/76; PULSE 86; TEMP 98
[2018-12-14] MEDS: Albuterol-Ipratrop 3 mg / 0.5 (3 ml) UD INH SCH (01:19)
--- NOTE | 2018-12-14 08:03 | CP.PCM.PRO ---
<Evaristo Barber - Last Filed: 12/14/18 09:36> Pronouncement of Note - Clinical Findings Physical Exam: No Response Verbal/Painful Stimuli, Absent Peripheral Pulses{Carotid & Femoral}, Absent Heart & Breath Sounds, No Pupillary Light Reflex, No Corneal Reflex, Pupils Fixed & Dilated, Absence of Vital Signs - Pronouncement Time Time of Pronouncement of : 07:47 - Notifications Pronouncement Notifications: Family Notified (message left on husbands cell phone to come to the hospital), Atending Notified Agricultural Extension Officer Notified: No - [place] [id number] <Saira Leahy V - Last Filed: 12/14/18 09:46> Attending/Attestation - Attestation I have personally seen and examined this patient.: Yes I have fully participated in the care of the patient.: Yes I have reviewed all pertinent clinical information: Yes Notes (Text): Patient seen at bedside with the resident. patient is not responsive to touch, stimuli, no pulse palpated, asystole on EKG. Patient's is not present at bedside. Resident has contacted him via phone to come to the hospital immediately. pronounced at 747AM 12/14/18. EDRS completed. Nursing staff is aware. I spoke with jonel handy who is available via phone.
--- NOTE | 2018-12-14 21:14 | CP.PCM.DIS ---
Provider - Provider Date of Admission: 07/07/18 15:53 Attending physician: North Hendrix MD Consults: 10/04/18 09:32 Wound Care [Nursing Referral for Wound Care] Routine Comment: Physician Instructions: Reason For Exam: Please assess knees for skin breakdown. 11/13/18 09:26 Wound Care [Nursing Referral for Wound Care] Routine Comment: Physician Instructions: Reason For Exam: sacral butt wound 11/23/18 15:29 Anesthesiology Consult Routine Comment: Consulting Provider: Shilpi Clayton Consulting Physician: Shilpi Clayton Reason for Consult: ketamine dose for pain management 12/11/18 09:31 Nursing Referral for Wound Care Routine Comment: Physician Instructions: Reason For Exam: worsening sacral ulcer 07/08/18 18:00 Nephrology Consult Routine Comment: Consulting Provider: Manjit Hyde Consulting Physician: Manjit Hyde Reason for Consult: dialysis 07/09/18 12:08 Infectious Disease Consult Routine Comment: Consulting Provider: Joni Brock Consulting Physician: Joni Brock Reason for Consult: gram negative sepsis 07/10/18 14:25 Cardiology Consult Routine Comment: Consulting Provider: Girma Francisco Consulting Physician: Girma Francisco Reason for Consult: s/p code blue, vtach, cardiac risk factors 07/10/18 21:52 Endocrinology Consult Routine Comment: Consulting Provider: Sheyla Gayle Consulting Physician: Sheyla Gayle Reason for Consult: hyperthyroidism? no prior thyroid hx 07/13/18 19:31 Palliative Care Consult Routine Comment: Consulting Provider: Odette Umaña Physician Instructions: Reason For Exam: anoxic brain injury, poor prognosis 07/14/18 11:22 Physician Consult Routine Comment: Consulting Provider: James Pham Consulting Physician: James Pham Reason for Consult: anoxic brain injury 07/18/18 04:26 Nursing Referral for Wound Care Routine Comment: Physician Instructions: Reason For Exam: MASD 07/21/18 09:23 Physician Consult Routine Comment: Consulting Provider: Kanika Melchor Consulting Physician: Kanika Melchor Reason for Consult: trach consult 07/26/18 18:56 Physician Consult Routine Comment: Consulting Provider: Fabio Mckeon Consulting Physician: Fabio Mckeon Reason for Consult: thoracentesis 08/07/18 17:28 Physician Consult Routine Comment: Consulting Provider: Vania Macias Consulting Physician: Vania Macias Reason for Consult: abnormal vaginal bleeding. on anticoagulation Additional Comments: patient had vaginal bleeding about 2 weeks ago had US completed. Patient had repeat vaginal bleeding starting yesterday. unable to elicit further history from patient given anoxic brain injury and language barrier. prior hx of 2 miscarriages. 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 Consulting Physician: Edis Perry Jr. Reason for Consult: IVC filter 08/22/18 14:40 Palliative Care Consult Routine Comment: Consulting Provider: Odette Umaña Physician Instructions: Reason For Exam: goals of care 08/28/18 10:04 Pulmonology Consult Routine Comment: Consulting Provider: Errol Lozada Consulting Physician: Errol Lozada Reason for Consult: Help with weaning patient from Trach. Thank you! 08/28/18 12:45 Wound Care [Nursing Referral for Wound Care] Routine Comment: incontinence/ urine and feces Physician Instructions: Reason For Exam: buttock excoriation/ moisture assoc skin damage 08/29/18 19:03 ENT [Otolaryngology Consult] Routine Consulting Provider: Lavelle Pulliam Consulting Physician: Lavelle Pulliam Reason for Consult: Moistoiditis. ON Cefepime already. Please advise any further suggest 09/20/18 16:52 Pastoral Care Referral Routine Comment: Physician Instructions: Reason For Exam: counseling resources for 09/22/18 09:40 Wound Care [Nursing Referral for Wound Care] Routine Comment: Physician Instructions: Reason For Exam: skin breakdown knees 10/01/18 13:45 Radiology Consult Routine Comment: Consulting Provider: Sergio Chavis Consulting Physician: Sergio Chavis Reason for Consult: Right Pleural Fld with loculation. Thoracentesis? Time Spent in preparation of Discharge (in minutes): 35 Diagnosis - Discharge Diagnosis (1) Cardiopulmonary arrest Status: Acute Hospital Course - Lab Results Lab Results: Micro Results 11/14/18 15:00 Blood Blood Culture - Final NO GROWTH AFTER 5 DAYS 11/14/18 15:00 Blood Gram Stain - Final TEST NOT PERFORMED 11/15/18 00:26 Urine,Hernandes Urine Culture - Final Vancomycin Resistant E.faecium 11/07/18 19:29 Naris MRSA Culture - Final MRSA NOT DETECTED 10/28/18 01:34 Blood-Venous Blood Culture - Final NO GROWTH AFTER 5 DAYS 10/28/18 01:34 Blood-Venous Gram Stain - Final TEST NOT PERFORMED 10/28/18 01:34 Blood-Venous Blood Culture - Final NO GROWTH AFTER 5 DAYS 10/28/18 01:34 Blood-Venous Gram Stain - Final TEST NOT PERFORMED 10/28/18 20:05 Pleural Fluid Gram Stain - Final 10/28/18 20:05 Pleural Fluid Body Fluid Culture - Final No growth. 10/28/18 20:05 Trachasp Gram Stain - Final 10/28/18 20:05 Trachasp Sputum Culture - Final Pseudomonas Aeruginosa 09/15/18 12:53 Other: Please Indicate Mycobacterial Culture - Final 10/21/18 17:30 Blood Blood Culture - Final NO GROWTH AFTER 5 DAYS 10/21/18 17:30 Blood Gram Stain - Final TEST NOT PERFORMED 10/21/18 17:00 Blood Blood Culture - Final NO GROWTH AFTER 5 DAYS 10/21/18 17:00 Blood Gram Stain - Final TEST NOT PERFORMED 10/21/18 18:29 Urine,Catheterized Urine Culture - Final Pseudomonas Aeruginosa Vancomycin Resistant E.faecium 10/14/18 06:34 Blood Blood Culture - Final NO GROWTH AFTER 5 DAYS 10/14/18 06:34 Blood Gram Stain - Final TEST NOT PERFORMED 10/14/18 06:34 Blood Blood Culture - Final NO GROWTH AFTER 5 DAYS 10/14/18 06:34 Blood Gram Stain - Final TEST NOT PERFORMED 08/23/18 Unknown Other: Please Indicate Mycobacterial Culture - Final 10/02/18 15:29 Pleural Fluid Gram Stain - Final 10/02/18 15:29 Pleural Fluid Body Fluid Culture - Final No growth. 09/30/18 Unknown Blood-Venous Blood Culture - Final NO GROWTH AFTER 5 DAYS 09/30/18 Unknown Blood-Venous Gram Stain - Final TEST NOT PERFORMED 09/30/18 Unknown Blood-Venous Blood Culture - Final NO GROWTH AFTER 5 DAYS 09/30/18 Unknown Blood-Venous Gram Stain - Final TEST NOT PERFORMED 09/30/18 22:43 Urine,Catheterized Urine Culture - Final Vancomycin Resistant E.faecium 08/23/18 19:47 Bronchial Washings Fungal Culture - Final NO FUNGUS GROWTH IN 4 WEEKS. 09/22/18 12:59 Urine,Catheterized Urine Culture - Final No Growth (<1,000 CFU/ML) 09/19/18 16:03 Urine,Catheterized Urine Culture - Final Vancomycin Resistant E.faecium 09/15/18 12:53 Cerebral Spinal Fluid Gram Stain - Final 09/15/18 12:53 Cerebral Spinal Fluid CSF Culture - Final No growth. 09/18/18 05:38 Urine,Catheterized Urine Culture - Final No Growth (<1,000 CFU/ML) 09/16/18 15:27 Trachasp Gram Stain - Final 09/16/18 15:27 Trachasp Sputum Culture - Final Pseudomonas Aeruginosa 09/06/18 17:51 Pleural Fluid Gram Stain - Final 09/06/18 17:51 Pleural Fluid Body Fluid Culture - Final NO GROWTH AFTER 4 DAYS 08/27/18 18:10 Blood Blood Culture - Final NO GROWTH AFTER 5 DAYS 08/27/18 18:10 Blood Gram Stain - Final TEST NOT PERFORMED 08/27/18 17:40 Blood Blood Culture - Final NO GROWTH AFTER 5 DAYS 08/27/18 17:40 Blood Gram Stain - Final TEST NOT PERFORMED 08/25/18 10:40 Blood Blood Culture - Final NO GROWTH AFTER 5 DAYS 08/25/18 10:40 Blood Gram Stain - Final TEST NOT PERFORMED 08/25/18 10:00 Blood Blood Culture - Final NO GROWTH AFTER 5 DAYS 08/25/18 10:00 Blood Gram Stain - Final TEST NOT PERFORMED 08/27/18 16:06 Urine,Clean Catch Urine Culture - Final No Growth (<1,000 CFU/ML) 08/23/18 13:46 Blood-Venous Blood Culture - Final NO GROWTH AFTER 5 DAYS 08/23/18 13:46 Blood-Venous Gram Stain - Final TEST NOT PERFORMED 08/23/18 13:17 Blood-Venous Blood Culture - Final NO GROWTH AFTER 5 DAYS 08/23/18 13:17 Blood-Venous Gram Stain - Final TEST NOT PERFORMED 08/25/18 12:02 Stool Stool Culture - Final NO SALMONELLA, SHIGELLA OR CAMPYLOBACTER ISOLATED. 08/25/18 Unknown Bowel Ova and Parasite Concentrate Exam - Final 08/23/18 19:35 Bronchial Washings Bronchial Culture - Final Pseudomonas Aeruginosa 08/22/18 17:43 Trachasp Gram Stain - Final 08/22/18 17:43 Trachasp Sputum Culture - Final Pseudomonas Aeruginosa 07/10/18 11:01 Other: Please Indicate Mycobacterial Culture - Final 08/17/18 08:30 Urine,Catheterized Urine Culture - Final Yeast Species 08/12/18 11:45 Blood Blood Culture - Final NO GROWTH AFTER 5 DAYS 08/12/18 11:45 Blood Gram Stain - Final TEST NOT PERFORMED 08/12/18 11:14 Blood Blood Culture - Final NO GROWTH AFTER 5 DAYS 08/12/18 11:14 Blood Gram Stain - Final TEST NOT PERFORMED 08/14/18 16:42 Urine,Catheterized Urine Culture - Final No Growth (<1,000 CFU/ML) 08/12/18 12:21 Urine,Catheterized Urine Culture - Final Vancomycin Resistant E.faecium 07/20/18 11:18 Blood-Thru Central Line Blood Culture - Final NO GROWTH AFTER 5 DAYS 07/20/18 11:18 Blood-Thru Central Line Gram Stain - Final TEST NOT PERFORMED 07/20/18 11:18 Blood-Thru Central Line Blood Culture - Final NO GROWTH AFTER 5 DAYS 07/20/18 11:18 Blood-Thru Central Line Gram Stain - Final TEST NOT PERFORMED 07/23/18 13:04 Urine,Hernandes Urine Culture - Final No Growth (<1,000 CFU/ML) 07/21/18 11:41 Stool Stool Culture - Final NO SALMONELLA, SHIGELLA OR CAMPYLOBACTER ISOLATED. 07/20/18 20:35 Trachasp Gram Stain - Final 07/20/18 20:35 Trachasp Sputum Culture - Final Yeast Species 07/20/18 11:19 Urine Urine Culture - Final No Growth (<1,000 CFU/ML) 07/14/18 13:01 Blood Blood Culture - Final NO GROWTH AFTER 5 DAYS 07/14/18 13:01 Blood Gram Stain - Final TEST NOT PERFORMED 07/14/18 13:01 Blood Blood Culture - Final NO GROWTH AFTER 5 DAYS 07/14/18 13:01 Blood Gram Stain - Final TEST NOT PERFORMED 07/14/18 13:01 Trachasp Gram Stain - Final 07/14/18 13:01 Trachasp Sputum Culture - Final Yeast Species 07/14/18 13:01 Urine Urine Culture - Final No Growth (<1,000 CFU/ML) 07/09/18 17:17 Blood Blood Culture - Final NO GROWTH AFTER 5 DAYS 07/09/18 17:17 Blood Gram Stain - Final TEST NOT PERFORMED 07/09/18 17:16 Blood Blood Culture - Final NO GROWTH AFTER 5 DAYS 07/09/18 17:16 Blood Gram Stain - Final TEST NOT PERFORMED 07/12/18 20:26 Sputum Gram Stain - Final 07/12/18 20:26 Sputum Sputum Culture - Final Yeast Species 07/07/18 16:47 Blood-Venous Blood Culture - Final NO GROWTH AFTER 5 DAYS 07/07/18 16:47 Blood-Venous Gram Stain - Final TEST NOT PERFORMED 07/07/18 16:47 Blood-Venous Blood Culture - Final NO GROWTH AFTER 5 DAYS 07/07/18 16:47 Blood-Venous Gram Stain - Final TEST NOT PERFORMED 07/09/18 10:32 Trachasp Gram Stain - Final 07/09/18 10:32 Trachasp Sputum Culture - Final Yeast Species 07/08/18 17:10 Urine,Hernandes Urine Culture - Final No Growth (<1,000 CFU/ML) 07/08/18 06:21 Naris MRSA Culture (Admit) - Final MRSA NOT DETECTED 07/07/18 19:21 Urine Urine Culture - Final Escherichia Coli Most Recent Lab Values WBC 9.0 K/uL (4.8-10.8) 11/28/18 11: RBC 2.72 Mil/uL (3.80-5.20) L 11/28/18 11:26 Hgb 8.1 g/dL (11.0-16.0) L 11/28/18 11:26 Hct 24.0 % (34.0-47.0) L 11/28/18 11: MCV 88.4 fL (81.0-99.0) 11/28/18 11: MCH 29.8 pg (27.0-31.0) 11/28/18 11: MCHC 33.7 g/dL (33.0-37.0) 11/28/18 11: RDW 18.2 % (11.5-14.5) H 11/28/18 11:26 Plt Count 234 K/uL (130-400) 11/28/18 11: MPV 8.6 fL (7.2-11.7) 11/28/18 11: Neut % (Auto) 73.1 % (50.0-75.0) 11/28/18 11:26 Lymph % (Auto) 7.6 % (20.0-40.0) L 11/28/18 11:26 Yates % (Auto) 5.4 % (0.0-10.0) 11/28/18 11:26 Eos % (Auto) 13.7 % (0.0-4.0) H 11/28/18 11:26 Baso % (Auto) 0.2 % (0.0-2.0) 11/28/18 11: Neut # (Auto) 6.6 K/uL (1.8-7.0) 11/28/18 11: Lymph # (Auto) 0.7 K/uL (1.0-4.3) L 11/28/18 11: Yates # (Auto) 0.5 K/uL (0.0-0.8) 11/28/18 11: Eos # (Auto) 1.2 K/uL (0.0-0.7) H 11/28/18 11: Baso # (Auto) 0.0 K/uL (0.0-0.2) 11/28/18 11:26 Neutrophils % (Manual) 69 % (50-75) 11/28/18 11:26 Band Neutrophils % 1 % (0-2) 11/24/18 11:20 Lymphocytes % (Manual) 6 % (20-40) L 11/28/18 11:26 Monocytes % (Manual) 3 % (0-10) 11/28/18 11:26 Eosinophils % (Manual) 22 % (0-4) H 11/28/18 11:26 Basophils % (Manual) 1 % (0-2) 11/20/18 13:50 Metamyelocytes % 1 % (0-0) H 07/16/18 06:10 Myelocytes % 1 % (0-0) H 10/05/18 06:26 Toxic Granulation Present 11/28/18 11:26 Platelet Estimate Normal (NORMAL) 11/28/18 11:26 Plt Clumps, EDTA Present 11/28/18 11:26 Large Platelets Present 11/18/18 12:05 Giant Platelets Present 08/24/18 06:15 Polychromasia Slight 11/18/18 12:05 Hypochromasia (manual) Slight 11/28/18 11:26 Poikilocytosis (manual Slight 11/28/18 11:26 Basophilic Stippling Slight 07/15/18 06:36 Anisocytosis (manual) Slight 11/28/18 11:26 Microcytosis (manual) Slight 07/09/18 06:35 Macrocytosis (manual) Slight 07/16/18 06:10 Target Cells Slight 11/28/18 11:26 Tear Drop Cells Slight 10/07/18 06:26 Ovalocytes Slight 11/13/18 07:04 Ripon Cells Slight 11/20/18 13:50 Schistocytes Slight 10/07/18 06:26 Retic Count 2.8 % (0.5-1.5) H D 11/15/18 13:59 PT 13.3 SECONDS (9.7-12.2) H 10/23/18 06:05 INR 1.2 10/23/18 06:05 APTT 23 SECONDS (21-34) 10/02/18 06:10 Fibrinogen 477 mg/dL (200-400) H 07/14/18 10:47 Puncture Site Rra 11/15/18 15:30 pCO2 32 mm/Hg (35-45) L 11/15/18 15:30 pO2 256 mm/Hg (80-100) H 11/15/18 15:30 HCO3 20.9 mmol/L (21-28) L 11/15/18 15:30 ABG pH 7.38 (7.35-7.45) 11/15/18 15:30 ABG Total CO2 19.9 mmol/L (22-28) L 11/15/18 15:30 ABG O2 Saturation 99.8 % (95-98) H 11/15/18 15:30 ABG Base Excess -5.2 mmol/L (-2.0-3.0) L 11/15/18 15:30 ABG Hemoglobin 8.4 g/dL (11.7-17.4) L 11/02/18 16:42 ABG Carboxyhemoglobin 1.6 % (0.5-1.5) H 11/02/18 16:42 POC ABG HHb (Measured) 1.2 % (0.0-5.0) 11/02/18 16:42 ABG Methemoglobin 0.8 % (0.0-3.0) 11/02/18 16:42 Kevon Test Na 11/15/18 15:30 ABG Potassium 5.0 mmol/L (3.6-5.2) 11/15/18 15:30 VBG pH 7.13 (7.32-7.43) L* 07/07/18 19:15 VBG pCO2 37 mmHg (40-60) L 07/07/18 19:15 VBG HCO3 10.5 mmol/L 07/07/18 19:15 VBG Total CO2 13.4 mmol/L (22-28) L 07/07/18 19:15 VBG O2 Sat (Calc) 53.0 % (40-65) 07/07/18 19:15 VBG Base Excess -16.1 mmol/L (0.0-2.0) L 07/07/18 19:15 VBG Potassium 4.0 mmol/L (3.6-5.2) 07/07/18 19:15 A-a O2 Difference -11.0 mm/Hg 11/15/18 15:30 Respiratory Index 0 11/15/18 15:30 Hgb O2 Saturation 96.4 % (95.0-98.0) 11/02/18 16:42 Sodium 136.0 mmol/l (132-148) 11/15/18 15:30 Chloride 113.0 mmol/L (98-107) H 11/15/18 15:30 Glucose 118 mg/dl (65-105) H 11/15/18 15:30 Lactate 1.1 mmol/L (0.7-2.1) 11/15/18 15:30 Vent Mode Prvc 11/15/18 15:30 Mechanical Rate 12 11/15/18 15:30 FiO2 40.0 % 11/15/18 15:30 Tidal Volume 430 11/15/18 15:30 PEEP 5 11/15/18 15:30 Pressure Support 14 09/06/18 16:21 Crit Value Called To Dr drew hendrix 08/10/18 10:24 Crit Value Called By Ty beckett [facility] 08/10/18 10:24 Crit Value Read Back Y 08/10/18 10:24 Blood Gas Notified Time 1030 08/10/18 10:24 Sodium 124 mmol/L (132-148) L 11/28/18 11:26 Potassium 5.4 mmol/L (3.6-5.2) H 11/28/18 11:26 Chloride 99 mmol/L (98-107) 11/28/18 11:26 Carbon Dioxide 17 mmol/L (22-30) L 11/28/18 11:26 Anion Gap 14 (10-20) 11/28/18 11:26 BUN 86 mg/dL (7-17) H 11/28/18 11:26 Creatinine 1.6 mg/dL (0.7-1.2) H 11/28/18 11:26 Est GFR ( Amer) 41 11/28/18 11:26 Est GFR (Non-Af Amer) 34 11/28/18 11:26 POC Glucose (mg/dL) 249 mg/dL (65-110) H 12/14/18 07:31 Random Glucose 121 mg/dL (65-105) H D 11/28/18 11:26 Hemoglobin A1c 7.8 % (4.2-6.5) H 07/08/18 06:21 Lactic Acid 0.7 mmol/L (0.7-2.1) 11/17/18 19:57 Calcium 7.5 mg/dl (8.6-10.4) L 11/28/18 11:26 Phosphorus 4.1 mg/dL (2.5-4.5) 11/16/18 08:08 Magnesium 2.3 mg/dL (1.6-2.3) 11/16/18 08:08 Iron 38 ug/dL (37-170) 11/16/18 08:08 TIBC 159 ug/dL (250-450) L 11/16/18 08:08 % Saturation 21 (20-55) 11/17/18 08:07 Ferritin 407.0 ng/mL 11/17/18 08:07 Total Bilirubin 0.3 mg/dL (0.2-1.3) 11/28/18 11:26 AST 22 U/L (14-36) 11/28/18 11:26 ALT 30 U/L (9-52) 11/28/18 11:26 Alkaline Phosphatase 225 U/L (38-126) H 11/28/18 11:26 Ammonia < 9 umol/L (9-33) L 09/02/18 15:27 Lactate Dehydrogenase 2209 U/L (313-618) H 07/10/18 11:12 Total Creatine Kinase 78 U/L (30-135) 11/16/18 08:08 CK-MB (Mass) 2.98 ng/mL (0.0-3.38) 07/10/18 20:53 Troponin I 10.4000 ng/mL (0.00-0.120) H* 07/10/18 20:53 NT-Pro-B Natriuret Pep 06925 pg/mL (0-900) H 07/10/18 14:30 Total Protein 4.4 g/dL (6.3-8.3) L 11/28/18 11:26 Albumin 2.0 g/dL (3.5-5.0) L 11/28/18 11:26 Globulin 2.4 gm/dL (2.2-3.9) 11/28/18 11:26 Albumin/Globulin Ratio 0.8 (1.0-2.1) L 11/28/18 11:26 Amylase 52 U/L (30-110) 07/09/18 20:35 Lipase 35 U/L (23-300) 07/09/18 20:35 CA 125 Antigen 497 U/mL (0-35) H 08/07/18 20:31 UF Heparin Interp Negative (Negative) 07/14/18 10:47 Vitamin B12 901 pg/mL (239-931) 09/07/18 05:06 25-OH Vitamin D Total < 12.8 NG/ML (30.0-100.0) L 07/11/18 05:49 Folate > 20.0 ng/mL 09/07/18 05:06 Procalcitonin 1.67 NG/ML (0.19-0.49) H 12/01/18 08:23 Free T4 1.33 ng/dL (0.78-2.19) 11/08/18 07:35 Thyroxine (T4) 8.26 ug/dL (5.5-11.0) 07/15/18 06:36 Free T3 pg/mL 4.26 pg/mL (2.77-5.27) 07/27/18 13:06 Total T3 0.857 nmol/L (1.49-2.60) L 07/20/18 12:27 TSH 3rd Generation 5.34 mIU/L (0.46-4.68) H 11/08/18 07:35 Thyroid Stim Immunoglob <89 % baseline (<140) 07/16/18 10:25 FSH 3rd Generation 1.7 mIU/mL 07/26/18 18:26 Luteinizing Hormone < 0.2 mIU/mL 07/26/18 18:26 Prolactin 18.5 ng/mL (3.0-18.9) 07/26/18 18:26 PTH Intact Whole Molec 708 pg/mL (14-64) H 07/10/18 13:07 Arterial Blood Potassium 5.0 mmol/L (3.6-5.2) 11/15/18 15:30 Venous Blood Potassium 4.0 mmol/L (3.6-5.2) 07/07/18 19:15 Urine Color Annette (YELLOW) 11/16/18 20:39 Urine Clarity Hazy (Clear) 11/16/18 20:39 Urine pH 5.0 (5.0-8.0) 11/16/18 20:39 Ur Specific [place] 1.026 (1.003-1.030) 11/16/18 20:39 Urine Protein 2+ mg/dL (NEGATIVE) H 11/16/18 20:39 Urine Glucose (UA) Normal mg/dL (Normal) 11/16/18 20:39 Urine Ketones Negative mg/dL (NEGATIVE) 11/16/18 20:39 Urine Blood 1+ (NEGATIVE) H 11/16/18 20:39 Urine Nitrate Negative (NEGATIVE) 11/16/18 20:39 Urine Bilirubin Negative (NEGATIVE) 11/16/18 20:39 Urine Urobilinogen 4.0 mg/dL (0.2-1.0) H 11/16/18 20:39 Ur Leukocyte Esterase 3+ Kiya/uL (Negative) H 11/16/18 20:39 Urine WBC (Auto) 120 /hpf (0-5) H 11/16/18 20:39 Urine RBC (Auto) 12 /hpf (0-3) H 11/16/18 20:39 Urine WBC Clumps (Auto) Mod /hpf (NONE) H 07/07/18 14:49 Ur Squamous Epith Cells 2 /hpf (0-5) 11/16/18 20:39 Amorphous Sediment Few /ul (<OCC) H 10/21/18 18:29 Urine Bacteria Few (<OCC) H 11/16/18 20:39 Hyaline Casts >20 /lpf (0-2) H 07/07/18 14:49 Urine Yeast (Budding) Few /hpf (NEGATIVE) H 11/16/18 20:39 Urine Eosinophils Negative (NEGATIVE) 07/09/18 20:26 Ur Random Creatinine 120.1 mg/dL 07/09/18 14:33 U Random Total Protein 89.0 mg/dL (0.0-12.0) H 07/09/18 14:33 Urine HCG, Qual Negative (NEGATIVE) 08/23/18 10:12 Fluid Type Spinal fluid 09/15/18 12:53 Fluid Source Pleural/thoracentesi 10/13/18 14:00 Fluid Appearance Sl cloudy (CLEAR) 10/13/18 14:00 Fluid WBC 794.0 /mm3 (0.0-300.0) H 10/13/18 14:00 Fluid RBC 2083.0 /mm3 (0.0-0.0) H 10/13/18 14:00 Fluid Tot Cell Count 100 (0-0) H 10/13/18 14:00 Fluid Neutrophils 87.0 % (0-0) H 10/13/18 14:00 Fluid Lymphocytes 7.0 % (0-0) H 10/13/18 14:00 Fld Monocyte/Macrophag 2 % (0-0) H 10/13/18 14:00 Fluid Comment 10/13/18 14:00 CSF Volume 2 mL (0-1) H 09/15/18 12:53 CSF Appearance Clear/colorless (CLEAR) 09/15/18 12:53 CSF WBC 1.0 /mm3 (0.0-5.0) 09/15/18 12:53 CSF RBC 524.0 /mm3 (0.0-0.0) H 09/15/18 12:53 CSF Total Cell Counted 50 (0-0) H 09/15/18 12:53 CSF Neutrophils 33 % (0-0) H 09/15/18 12:53 CSF Lymphocytes 67.0 % (0-0) H 09/15/18 12:53 CSF Monos/Macrophages TEST NOT PERFORMED 09/15/18 12:53 CSF Comment TEST NOT PERFORMED 09/15/18 12:53 CSF Glucose 69 mg/dL (40-70) 09/15/18 12:53 CSF LDH 30 U/L (<=25) H 09/15/18 13:00 CSF Lactic Acid See separate report 09/15/18 13:00 CSF Total Protein 67.0 mg/dL (12-60) H 09/15/18 12:53 CSF VDRL Titer TEST NOT PERFORMED 09/15/18 12:53 CSF VDRL See separate report 09/15/18 12:53 CSF Cryptococcus Ag Cancelled 09/15/18 12:53 CSF Herpes II IgM Ab TEST NOT PERFORMED 09/15/18 13:00 Pleural Total Protein <3.0 g/dL 10/13/18 14:00 Pleural LDH 145 U/L 10/13/18 14:00 Pleural Glucose 146 mg/dL 10/13/18 14:00 Stool Occult Blood Negative (NEGATIVE) 08/17/18 13:32 Stool Leukocytes, Qual Positive (NEGATIVE) H 08/25/18 12:02 Vancomycin Trough 7.7 ug/mL (5.0-10.0) 07/23/18 13:04 Random Vancomycin 28.0 ug/mL 08/26/18 06:27 Valproic Acid 19.6 ug/mL (50.0-100.0) L 08/01/18 11:41 LIA Screen Negative (Negative) 07/08/18 23:06 LIA Titer TEST NOT PERFORMED 07/08/18 23:06 LIA Titer 2 TEST NOT PERFORMED 07/08/18 23:06 LIA Pattern TEST NOT PERFORMED 07/08/18 23:06 LIA Pattern 2 TEST NOT PERFORMED 07/08/18 23:06 ANCA Screen Negative (NEGATIVE) 07/08/18 23:06 c-ANCA Titer TNP 07/08/18 23:06 Proteinase 3 (PR3) <1.0 AI (<1.0) 07/08/18 23:06 p-ANCA Titer TNP 07/08/18 23:06 Atypical p-ANCA Titer TNP 07/08/18 23:06 Myeloperoxidase Ab <1.0 AI (<1.0) 07/08/18 23:06 Double Strand DNA Ab <1 IU/mL 07/08/18 23:06 [id number] Ab <9 [place] (<=20) 07/27/18 13:06 Beta-2 GPI IgG Ab <9 SGU (<=20) 07/27/18 13:06 Beta-2 GPI IgM Ab <9 SMU (<=20) 07/27/18 13:06 TSH Bind Inhibitory Ig See separate report 07/16/18 10:25 Glomerular Base Mem IgG <1.0 AI (<1.0) 07/11/18 05:49 Heparin-induced Plt Ab See separate report 07/14/18 10:47 RUSTY UFH Low Dose 0.1 0 % Release 07/14/18 10:47 RUSTY UFH Low Dose 0.5 0 % Release 07/14/18 10:47 RUSTY UFH High Dose 100 0 % Release 07/14/18 10:47 Phosphatidylserine IgG <10 U/mL (<10) 07/27/18 13:06 Phosphatidylserine IgA <20 U/mL (<20) 07/27/18 13:06 Phosphatidylserine IgM <25 U/mL (<25) 07/27/18 13:06 Anti-Phospholipid Intrp see note 07/27/18 13:06 Anti-Cardiolipin IgG Ab <14 GPL (<=14) 07/27/18 13:06 Anti-Cardiolipin IgA Ab <11 APL (<=11) 07/27/18 13:06 Anti-Cardiolipin IgM Ab <12 MPL (<=12) 07/27/18 13:06 Complement C3 97.0 mg/dL (88.0-165.0) 07/08/18 23:06 Complement C4 19.8 mg/dL (14.0-44.0) 07/08/18 23:06 B. parapertussis Cult See separate report 07/08/18 03:36 C. difficile Ag & Toxin Negative (NEGATIVE) 09/30/18 19:42 CMV DNA Quant PCR See separate report 09/18/18 09:44 Hepatitis A IgM Ab Negative (NEGATIVE) 08/24/18 21:16 Hep Bs Antigen Negative (NEGATIVE) 08/24/18 21:16 Hep Bs Antibody Negative (NEGATIVE) 08/24/18 21:16 Hep B Core IgM Ab Negative (NEGATIVE) 08/24/18 21:16 Hepatitis C Antibody Negative (NEGATIVE) 08/24/18 21:16 HSV Source Description Csf 09/15/18 12:53 HSV I IgM Titer See separate report 09/15/18 13:00 HSV I DNA PCR Not detected (Not Detected) 09/15/18 12:53 HSV II DNA PCR Not detected (Not Detected) 09/15/18 12:53 HIV 1&2 Antibody Screen Negative (NEGATIVE) 07/09/18 20:35 Influenza Typ A,B (EIA) Negative for flu a/b (NEGATIVE) 07/08/18 02:20 Ur L.pneumophila Ag Negative (NEGATIVE) 07/09/18 21:34 Mycoplasma pneumon IgM Negative (NEGATIVE) 07/07/18 19:15 Blood Type A POSITIVE 11/15/18 11:42 Blood Type Confirm A POSITIVE 07/14/18 10:49 Antibody Screen Negative 11/15/18 11:42 - Hospital Course Hospital Course: This is a 52 yo female originally admitted to the ICU for septic shock 2/ to PNA/UTI worsened by cardiac arrest and anoxic brain injury. Patient found to have apical thrombus in heart. Patient is s/p trach and PEG. Patient still unable to be weaned off vent. She has had multiple complications, including DVT and infections (PNA, UTI). s/p IVC filter 08/23. s/p multiple chest tube placements Sep 19-Oct 21. s/p LP 09/15. Patient has shown minimal improvement of cognitive function during the course of this hospitalization. Patient does not have any insurance and therefore cannot be placed in rehab/NH. She was eventually placed DNR. Palliative and pastoral care have been very much involved in pt's care. She was eventually placed on comfort care. She was placed on a morphine 0.5 mg IVP prn restlessness and pain on 12/13/18, and ultimately passed from cardiopulmonary arrest on 12/14/18. Below is a list of the complications she suffered from during her lengthy hospitalization: Vtach- Code blue x2 (07/10/18) Cardiology consulted ([facility]) Anoxic encephalopathy Secondary to Code Blue 07/10 and 07/20 CT head (08/28/18): No hemorrhage or midline shift MRI brain (09/08/18): No definite mass effect or suspicious extra axial collection. No evidence of acute or subacute brain infarction at this time. Borderline pattern of hydrocephalus. Neurology, Dr. Pham/Dr. Vazquez, consulted. Acute respiratory failure with tracheostomy and inability to wean Tracheostomy 07/24/18 Bronchoscopy (08/23/18) by Dr. Neville with Bronchial washings positive for Pseudomonas Aeruginosa Multiple pulmonary images redemonstrated pleural effusions and associated consolidations. These effusions eventually required chest tubes, which were removed when comfort care was initiated. Anemia 2/2 to Chronic Diseases +/- Dysfunctional uterine bleeding, stable Vaginal US showed thickened endometrium. OBGYN consulted (Dr. Macias) was consulted but no hysterectomy was indicated. Her dysfunctional uterine bleeding and significant anemia prevented placement on anticoagulation. The anemia required multiple transfusions of pRBCs. Sacral Decubitus Ulcers due to imobility secondary to anoxic brain injury Wound care was consulted. The area was cared for carefully during hospitalization, with turns ever 2 hours as well. Thyroid disorder Thyroid US (07/16/18): Heterogeneous thyroid echotexture. Numerous nodules as described above. Suggest percutaneous biopsy of the following suspicious nodules; 1.8 x 0.9 x 1.7 cm right lower pole nodule, 1.0 x 0.7 x 0.9 cm right upper pole lesion with intracystic vascular nodule, complex left upper pole nodule measuring 2.1 x 1.5 x 1.8 cm. Note: Initial thyroid studies taken before amiodarone was given- this is NOT amiodarone induced She was managed with Methimazole to 10 mg PO Q8H Endocrinology consulted, Dr. Gayle Septic Shock 2/2 Pneumonia and Urinary Tract Infection (VRE and Pseudomonas) Required 3 pressors at one point. She was placed on multiple antibiotics for VRE, P. aeruginosa in the urine, including Zyvox, cefepime. Infectious disease, Dr. Brock, consulted. Apical thrombus Echo (07/07/18) before cardiac arrest: EF 40-45% Echo (07/10/19) after cardiac arrest: EF 40%, LV large apical hypokinesis, large 30x20 mm soft tissue apical sessile mass suggestive of thrombus Echo (08/17/19): LV clot, no significant change Too high risk for HUBERT Previously on heparin gtt, Eliquis- stopped due to anemia and vaginal bleeding LLE Deep vein thrombosis s/p IVC filter Venous Doppler (07/18/18): Acute thrombosis of the left common femoral and femoral veins with severe reduction of the venous return Resolved on repeat imaging Previously on heparin gtt, Eliquis- stopped due to anemia and vaginal bleeding IVC filter on 08/23/18 Vasc surgery consulted (Dr. Vicky) This is a summary of the hospital course. Please see EMR for full details. Discharge Exam - Additional Findings Additional findings: Physical Exam: No Response Verbal/Painful Stimuli, Absent Peripheral Pulses{Carotid & Femoral}, Absent Heart & Breath Sounds, No Pupillary Light Reflex, No Corneal Reflex, Pupils Fixed & Dilated, Absence of Vital Signs Discharge Plan - Follow Up Plan Condition: GOOD Disposition: WITH WITHOUT AUTOPSY
== END 2018-12-14 12:35 | DRG 5 ==
LOC: C.ER 13:10 → EDBD 13:10 → C.9E 15:53 → C.6T 20:26 → C.9E 22:59 → C.9I 07-08 01:42 → C.3T 11-07 17:10
PROVIDERS: ADMIT Family Medicine; ATTEND Family Medicine
PROC: 5A09457 Assistance with Respiratory Ventilation, 24-96 Consecutive Hours, Continuous Positive Airway Pressure (ICD-10-PCS; 2018-07-07)
PROC: 5A1955Z Respiratory Ventilation, Greater than 96 Consecutive Hours (ICD-10-PCS; 2018-07-08)
PROC: 0BH17EZ Insertion of Endotracheal Airway into Trachea, Via Natural or Artificial Opening (ICD-10-PCS; 2018-07-08)
PROC: 5A1D70Z Performance of Urinary Filtration, Intermittent, Less than 6 Hours Per Day (ICD-10-PCS; 2018-07-08)
PROC: 05HM33Z Insertion of Infusion Device into Right Internal Jugular Vein, Percutaneous Approach (ICD-10-PCS; 2018-07-08)
PROC: B543ZZA Ultrasonography of Right Jugular Veins, Guidance (ICD-10-PCS; 2018-07-08)
PROC: 0BH17EZ Insertion of Endotracheal Airway into Trachea, Via Natural or Artificial Opening (ICD-10-PCS; 2018-07-08)
PROC: 06HY33Z Insertion of Infusion Device into Lower Vein, Percutaneous Approach (ICD-10-PCS; 2018-07-09)
PROC: 05H533Z Insertion of Infusion Device into Right Subclavian Vein, Percutaneous Approach (ICD-10-PCS; 2018-07-14)
PROC: 0B110F4 Bypass Trachea to Cutaneous with Tracheostomy Device, Open Approach (ICD-10-PCS; 2018-07-24)
PROC: 0DH63UZ Insertion of Feeding Device into Stomach, Percutaneous Approach (ICD-10-PCS; 2018-07-26)
PROC: 0DJ08ZZ Inspection of Upper Intestinal Tract, Via Natural or Artificial Opening Endoscopic (ICD-10-PCS; 2018-07-26)
PROC: 0B9F7ZX Drainage of Right Lower Lung Lobe, Via Natural or Artificial Opening, Diagnostic (ICD-10-PCS; 2018-08-23)
PROC: 06H03DZ Insertion of Intraluminal Device into Inferior Vena Cava, Percutaneous Approach (ICD-10-PCS; principal; 2018-08-23 13:15)
PROC: 0W9930Z Drainage of Right Pleural Cavity with Drainage Device, Percutaneous Approach (ICD-10-PCS; 2018-09-06)
PROC: 009U3ZX Drainage of Spinal Canal, Percutaneous Approach, Diagnostic (ICD-10-PCS; 2018-09-15)
PROC: 0W993ZZ Drainage of Right Pleural Cavity, Percutaneous Approach (ICD-10-PCS; 2018-10-02)
PROC: 0W9930Z Drainage of Right Pleural Cavity with Drainage Device, Percutaneous Approach (ICD-10-PCS; 2018-10-20)
DX: A41.9 Sepsis, unspecified organism (principal); I21.4 Non-ST elevation (NSTEMI) myocardial infarction; I63.40 Cerebral infarction due to embolism of unspecified cerebral artery; I49.01 Ventricular fibrillation; G04.90 Encephalitis and encephalomyelitis, unspecified; J96.21 Acute and chronic respiratory failure with hypoxia; K72.00 Acute and subacute hepatic failure without coma; J90 Pleural effusion, not elsewhere classified; J69.0 Pneumonitis due to inhalation of food and vomit; I13.0 Hypertensive heart and chronic kidney disease with heart failure and stage 1 through stage 4 chronic kidney disease, or unspecified chronic kidney disease; N17.0 Acute kidney failure with tubular necrosis; I47.2 Ventricular tachycardia; N18.3 Chronic kidney disease, stage 3 (moderate); L89.159 Pressure ulcer of sacral region, unspecified stage; J15.1 Pneumonia due to Pseudomonas; I50.42 Chronic combined systolic (congestive) and diastolic (congestive) heart failure; R65.21 Severe sepsis with septic shock; G93.41 Metabolic encephalopathy; I82.412 Acute embolism and thrombosis of left femoral vein; D69.6 Thrombocytopenia, unspecified; I27.20 Pulmonary hypertension, unspecified; E83.42 Hypomagnesemia; E87.5 Hyperkalemia; E86.0 Dehydration; B96.20 Unspecified Escherichia coli [E. coli] as the cause of diseases classified elsewhere; B95.2 Enterococcus as the cause of diseases classified elsewhere; E55.9 Vitamin D deficiency, unspecified; E78.5 Hyperlipidemia, unspecified; E87.6 Hypokalemia; F43.21 Adjustment disorder with depressed mood; H70.90 Unspecified mastoiditis, unspecified ear; I25.10 Atherosclerotic heart disease of native coronary artery without angina pectoris; I46.9 Cardiac arrest, cause unspecified; I47.1 Supraventricular tachycardia; N39.0 Urinary tract infection, site not specified; R18.8 Other ascites; R40.3 Persistent vegetative state; R64 Cachexia; Z51.5 Encounter for palliative care; Z66 Do not resuscitate; Z74.01 Bed confinement status; Z79.01 Long term (current) use of anticoagulants; Z79.4 Long term (current) use of insulin; Z99.11 Dependence on respirator [ventilator] status; Z68.1 Body mass index [BMI] 19.9 or less, adult; E10.22 Type 1 diabetes mellitus with diabetic chronic kidney disease; E10.649 Type 1 diabetes mellitus with hypoglycemia without coma; E10.65 Type 1 diabetes mellitus with hyperglycemia; E87.4 Mixed disorder of acid-base balance; I07.1 Rheumatic tricuspid insufficiency; I42.9 Cardiomyopathy, unspecified; I48.91 Unspecified atrial fibrillation; I51.3 Intracardiac thrombosis, not elsewhere classified; K92.2 Gastrointestinal hemorrhage, unspecified